=== PATIENT | female | born 1990 | race Caucasian/White ===

== ENCOUNTER 2017-12-08 17:12 | Emergency (ER) | payer MEDICAID, SELFPAY ==
[2017-12-08 17:25] VITALS: BP 137/77; PULSE 77; RESP 16; TEMP 36.6; O2SAT 100
--- NOTE | 2017-12-08 17:40 | ED.GENADUL ---
Disposition Clinical Impression: Cellulitis Disposition: HOME Condition: Good Instructions: Cellulitis (ED) Additional Instructions: Please take the antibiotic as directed. If you notice any worsening of your symptoms, or any new symptoms such as vomiting, diarrhea, fever, chills, shortness of breath, chest pain, numbness, weakness, or fainting , please return immediately to the emergency department for reevaluation. Please follow up with your primary care provider as soon as possible for reassessment and reevaluation. As always, it was a pleasure participating in your medical care today. Prescriptions: Clindamycin [Cleocin] 450 mg PO TID #90 cap Referrals: Valencia Adhikari [Primary Care Provider] - Medical Decision Making - Medical Decision Making This is a very pleasant 27-year-old female who presents with signs and symptoms consistent for mild cellulitis secondary to a recent tattoo. He is present on her forearm, no evidence of abscess on exam, or with bedside ultrasound. She demonstrates no systemic findings of fever, or severe tachycardia. Cellulitis is very mild on exam. Patient states that he was done in a clean environment with new needles and not using used needles. She has no history of hepatitis C, demonstrates no pain on abdominal exam and no signs of jaundice on exam. Patient denies any history of MRSA. She denies any IV or illicit drug use. With a concern for mild cellulitis, we will treat the patient with clindamycin for MRSA coverage. I had a long discussion with the patient regarding the importance of eating yogurt with live culture, as well as red flags which to return including worsening of her symptoms. We discussed the importance of close PCP follow-up and the patient understands. I have extensively reviewed the treatment plan and discharge instructions with the patient. I have addressed all patient concerns at this time. The patient was made aware of what symptoms to monitor for that would warrant a return to the emergency department. Discussed the plan with the patient, they demonstrate verbal understanding and agreement with our assessment and plan at this time. 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 She presents for evaluation of right forearm pain. She had a tattoo that was placed on her right forearm 5 days ago. Since then she has noticed mild swelling and mild pain in the area. It was performed by professional culinary artist who also happened to also be her friend, and was performed in normal environment. There is mild radiation of the pain in the arm. No associated symptoms of fevers, chills, discharge. She has not been on antibiotics recently. She denies any history of abscesses or MRSA. She has had no complications with tattoos in the past. There is no significant red dye from the tattoo. There are no associated aggravating or relieving factors. Patient denies any other complaints at this time. She denies any IV or illicit drug use. She denies any pertinent family history. - Related Data Levothyroxine Sodium [Synthroid] 200 mcg PO QAM 09/15/12 BuPROPion CR [Wellbutrin Sr] 150 mg PO DAILY 12/08/17 BusPIRone [Buspar] 15 mg PO BID 12/08/17 Clindamycin [Cleocin] 450 mg PO TID #90 cap 12/08/17 LamoTRIgine [LaMICtal] 150 mg PO DAILY 12/08/17 Levonorgestrel [Mirena] 1 each IY 12/08/17 Allergies Allergy/AdvReac Type Severity Reaction Status Date / Time hydromorphone [Hydromorphone] Allergy Severe Anaphylaxsi Unverified 12/08/17 17:31 s meperidine Allergy gi upset Unverified 12/08/17 17:31 itching codeine AdvReac Mild Nausea Unverified 12/08/17 17:31 Review of Systems Other: 10 point review of systems was performed, pertinent positives and negatives are noted in the history of present illness. Past Medical History - Past Medical History Medical history: cancer (thyroid). denies: arthritis Surgical history: other (thyroidectomy) - 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 Alcohol use: occasionally Drug use: marijuana (Daily) General Exam - Other Other exam information: 1.Const: Well-nourished, Well-developed, appearing stated age 2.Eyes: PERRL, no conjunctival injection, and symmetrical lids. 3.ENT: Atraumatic external nose and ears. Moist MM. Neck: Symmetric, trachea midline, No thyromegaly. 4.CVS: +S1/S2, No murmurs or gallops. Peripheral pulses 2+ and equal in all extremities. Brisk capillary refill in all extremities. 5.RESP: Unlabored respiratory effort. Clear to auscultation bilaterally. No wheezes rales or rhonchi 6.GI: Soft, Nontender/Nondistended, No hepatosplenomegaly. No guarding or rebound. 7.MSK: Normocephalic/Atraumatic, Normal movement of all extremities 8.Skin: Right forearm demonstrates a very nice tattoo with a diameter of 2 cm. There is mild amount of erythema extending around this. Mild firmness, no evidence of fluctuance or abscess. Bedside portable ultrasound demonstrates no evidence of abscess, or fluctuance. She has roughly 2-3 cm of mild erythema extending from around the tattoo itself. No other abnormalities. No axillary lymphadenopathy. Normal sensation distal to the site of infection. No pain with flexion of the forearm. 9.Neuro: thoracic medicine physician II-XII grossly intact. Sensation grossly intact, no focal neurologic deficits. 10.Psych: (AAO) x3. Appropriate mood and affect Course Vital Signs - 24 hr 12/08/17 17:25 Temperature 36.6 C Pulse 77 Respiratory 16 Rate Blood Pressure 137/77 Pulse Oximetry 100
[2017-12-08] MEDS: Clindamycin 150 MG CAP PO (17:59)
== END 2017-12-08 18:00 | disposition home or self-care (01) ==
PROVIDERS: Emergency Provider Student in an Organized Health Care Education/Training Program; PCP Nurse Practitioner Family
DX: L03.113 Cellulitis of right upper limb (principal); L81.8 Other specified disorders of pigmentation
CPT/HCPCS: 99283

== ENCOUNTER 2018-01-23 16:15 | Emergency (ER) | payer MEDICAID, SELFPAY ==
[2018-01-23 16:21] VITALS: BP 132/70; PULSE 91; RESP 17; TEMP 36.4; O2SAT 97
[2018-01-23] MEDS: Ketorolac 60 MG/2 ML VIAL 30 MG IM (18:28)
[2018-01-23] MEDS: Clindamycin 150 MG CAP 450 MG PO ×2 (18:29)
[2018-01-23 18:31] VITALS: BP 128/68; PULSE 87; RESP 16; TEMP 36.6; O2SAT 98
--- NOTE | 2018-01-23 20:44 | W.ED.GENAD ---
Discharge Plan Disposition Patient Disposition: HOME Condition: Good Discharge Details Chief Complaint: Cellulitis Clinical Impression: Cellulitis Primary Care Provider: Valencia Adhikari ED Provider: Behzad Candelaria Home Meds and New Rx's Prescriptions: New clindamycin HCl 150 mg capsule 450 mg PO TID 7 Days Qty: 63 RF: 0 acetaminophen [Mapap Extra Strength] 500 MG tablet 1,000 mg PO Q6H 5 Days Qty: 60 RF: 0 ibuprofen [Motrin IB] 200 MG tablet 800 mg PO Q6H 5 Days Qty: 80 RF: 0 No Action levothyroxine [Synthroid] 200 MCG tablet 200 mcg PO QAM RF: 0 lamotrigine 150 MG tablet 150 mg PO DAILY RF: 0 bupropion HCl 150 MG tablet extended release 12 hr 150 mg PO DAILY RF: 0 buspirone 15 MG tablet 15 mg PO BID RF: 0 levonorgestrel [Mirena] 1 EACH intrauterine device 1 ea Intrauterine RF: 0 Discharge Instructions Instructions: Cellulitis (ED) Additional Instructions: Please call here tomorrow morning at 7 AM for confirmation of your appointment and they will give you the exact time to come in. Please take your second clindamycin dose at 7 AM. Please take the Tylenol and Motrin as directed. Please keep your legs elevated. if you notice any worsening of your symptoms, or any new symptoms such as vomiting, diarrhea, fever, chills, shortness of breath, chest pain, numbness, weakness, or fainting , please return immediately to the emergency department for reevaluation. Please follow up with your primary care provider as soon as possible for reassessment and reevaluation. As always, it was a pleasure participating in your medical care today. Referrals: Valencia Adhikari [Primary Care Provider] - Medical Decision Making This is a 27-year-old female who presents today with swelling, redness, and tenderness at the medial aspects just proximal to her ankles bilaterally. The remainder of her physical exam is normal. No evidence of calf tenderness, no other significant abnormalities. The area does appear cellulitic in nature, no other evidence of rash or other significant cutaneous abnormality. Patient denies any trauma, exposure, or injury to this area. Because of the patient's estrogen use, as well as the concern for her swelling and her being on her feet at all times differential does include DVT. Ultrasound is not available at this time. I do feel that the more likely cause of her symptomatology is cellulitis however due to the current symptoms, and her risk factors I do feel that ultrasound is indicated. We will give subcu Lovenox which was requested by patient over pill alternatives, and have her follow-up tomorrow morning here for ultrasound to rule out DVTs. We will start her on clindamycin, give her first dose here, 1 pill to go home with her morning dose, and then a prescription for home use of clindamycin. At this time there is no evidence of allergic reaction, or atopic dermatitis. They do not feel that antihistamines or steroids are indicated. We discussed red flags which to immediately return the patient understands. I have extensively reviewed the treatment plan and discharge instructions with the patient. I have addressed all patient concerns at this time. The patient was made aware of what symptoms to monitor for that would warrant a return to the emergency department. Discussed the plan with the patient, they demonstrate verbal understanding and agreement with our assessment and plan at this time. HPI General Date/Time Provider Initiated Documentation: 01/23/18 16:51. HPI Narrative: This is a 27-year-old female with a past medical history of cellulitis, thyroid disease, and the Mirena device for contraception. She presents today with rash versus cellulitis on the medial aspect of her lower extremities bilaterally. Patient states that she is on her feet all day with work, and has been working a significant amount. She noticed pain, redness, and swelling over the medial aspect of her lower extremities bilaterally just proximal from the ankle. She denies any trauma, exposure to outdoor ike or Fonner, new medications, history of DVTs, no pets, or exposures. She denies any significant calf tenderness. She denies any new medications. She has no other complaints at this time. She denies any systemic symptoms of shortness of breath, chest pain, fever, chills, numbness, tingling, weakness. She has had cellulitis before, and has done well with clindamycin. Patient denies any other complaints at this time. Related Data Home Medications Medication Instructions Recorded Confirmed levothyroxine [Synthroid] 200 mcg PO QAM 09/15/12 01/23/18 bupropion HCl 150 mg PO DAILY 12/08/17 01/23/18 buspirone 15 mg PO BID 12/08/17 01/23/18 lamotrigine 150 mg PO DAILY 12/08/17 01/23/18 levonorgestrel [Mirena] 1 ea INTRAUTERINE 12/08/17 acetaminophen [Mapap Extra 1,000 mg PO Q6H 5 Days #60 tab 01/23/18 Strength] clindamycin HCl 450 mg PO TID 7 Days #63 cap 01/23/18 ibuprofen [Motrin Ib] 800 mg PO Q6H 5 Days #80 tab 01/23/18 Previous Rx's Medication Instructions Recorded acetaminophen [Mapap Extra 1,000 mg PO Q6H 5 Days #60 tab 01/23/18 Strength] clindamycin HCl 450 mg PO TID 7 Days #63 cap 01/23/18 ibuprofen [Motrin Ib] 800 mg PO Q6H 5 Days #80 tab 01/23/18 Allergies Allergy/AdvReac Type Severity Reaction Status Date / Time hydromorphone [Hydromorphone] Allergy Severe Anaphylaxsi Unverified 12/08/17 17:31 s meperidine Allergy gi upset Unverified 12/08/17 17:31 itching codeine AdvReac Mild Nausea Unverified 12/08/17 17:31 General Stated Complaint: Cellulitis ALISHA: 5 Review of Systems Review of Systems All systems reviewed & are unremarkable except as noted in HPI and below PFSH 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 Smoking/Tobacco Use Status: Current every day Surgical History Thyroid Tonsillectomy and adenoidectomy Exam Narrative Exam Narrative: 1.Const: Well-nourished, Well-developed, appearing stated age 2.Eyes: PERRL, no conjunctival injection, and symmetrical lids. 3.ENT: Atraumatic external nose and ears. Moist MM. Neck: Symmetric, trachea midline, No thyromegaly. 4.CVS: +S1/S2, No murmurs or gallops. Peripheral pulses 2+ and equal in all extremities. Brisk capillary refill in all extremities. 5.RESP: Unlabored respiratory effort. Clear to auscultation bilaterally. No wheezes rales or rhonchi 6.GI: Soft, Nontender/Nondistended, No hepatosplenomegaly. No guarding or rebound. 7.MSK: Normocephalic/Atraumatic, Extremities w/o deformity . No cyanosis or clubbing, Normal movement of all extremities. Patient does demonstrate erythema the medial aspects of her lower extremities bilaterally. It is warm, indurated, and notably tender. No evidence of rash in regards to vesicles, bulla, or signs of fluctuant abscess. Dorsalis pedis pulses and posterior tibial pulses are equal bilaterally, brisk capillary refill, normal sensation distal to the area of erythema. No significant calf tenderness. No posterior popliteal tenderness. No pain on flexion or extension of the ankle. 8.Skin: Warm, Dry. Please see muscular skeletal 9.Neuro: banquet director II-XII grossly intact. Sensation grossly intact, no focal neurologic deficits. 10.Psych: (AAO) x3. Appropriate mood and affect Course Vital Signs Temperature 36.4 C L 01/23/18 16:21 Pulse 91 H 01/23/18 16:21 Respiratory Rate 17 01/23/18 16:21 Blood Pressure 132/70 01/23/18 16:21 Pulse Oximetry 97 01/23/18 16:21 Temperature 36.6 C 01/23/18 18:31 Temperature Source Temporal Artery Scan 01/23/18 16:21 Pulse 87 01/23/18 18:31 Respiratory Rate 16 01/23/18 18:31 Respiratory Effort 01/23/18 16:23 Blood Pressure 128/68 01/23/18 18:31 Blood Pressure Position Sitting 01/23/18 16:21 Pulse Oximetry 98 01/23/18 18:31 Oxygen Delivery Method Room Air 01/23/18 16:21 Oxygen Flow Rate 0 01/23/18 16:21 Pain Level 5 01/23/18 18:31
--- NOTE | 2018-01-23 20:48 | ED.GENADUL_ITS ---
Discharge Plan Disposition Patient Disposition: HOME Condition: Good Discharge Details Chief Complaint: Cellulitis Clinical Impression: Cellulitis Primary Care Provider: Valencia Adhikari ED Provider: Behzad Candelaria Home Meds and New Rx's Prescriptions: New clindamycin HCl 150 mg capsule 450 mg PO TID 7 Days Qty: 63 RF: 0 acetaminophen [Mapap Extra Strength] 500 MG tablet 1,000 mg PO Q6H 5 Days Qty: 60 RF: 0 ibuprofen [Motrin IB] 200 MG tablet 800 mg PO Q6H 5 Days Qty: 80 RF: 0 No Action levothyroxine [Synthroid] 200 MCG tablet 200 mcg PO QAM RF: 0 lamotrigine 150 MG tablet 150 mg PO DAILY RF: 0 bupropion HCl 150 MG tablet extended release 12 hr 150 mg PO DAILY RF: 0 buspirone 15 MG tablet 15 mg PO BID RF: 0 levonorgestrel [Mirena] 1 EACH intrauterine device 1 ea Intrauterine RF: 0 Discharge Instructions Instructions: Cellulitis (ED) Additional Instructions: Please call here tomorrow morning at 7 AM for confirmation of your appointment and they will give you the exact time to come in. Please take your second clindamycin dose at 7 AM. Please take the Tylenol and Motrin as directed. Please keep your legs elevated. if you notice any worsening of your symptoms, or any new symptoms such as vomiting, diarrhea, fever, chills, shortness of breath, chest pain, numbness, weakness, or fainting , please return immediately to the emergency department for reevaluation. Please follow up with your primary care provider as soon as possible for reassessment and reevaluation. As always, it was a pleasure participating in your medical care today. Referrals: Valencia Adhikari [Primary Care Provider] - Medical Decision Making This is a 27-year-old female who presents today with swelling, redness , and tenderness at the medial aspects just proximal to her ankles bilaterally. The remainder of her physical exam is normal. No evidence of calf tenderness , no other significant abnormalities. The area does appear cellulitic in nature , no other evidence of rash or other significant cutaneous abnormality. Patient denies any trauma, exposure, or injury to this area. Because of the patient's estrogen use, as well as the concern for her swelling and her being on her feet at all times differential does include DVT. Ultrasound is not available at this time. I do feel that the more likely cause of her symptomatology is cellulitis however due to the current symptoms, and her risk factors I do feel that ultrasound is indicated. We will give subcu Lovenox which was requested by patient over pill alternatives, and have her follow-up tomorrow morning here for ultrasound to rule out DVTs. We will start her on clindamycin, give her first dose here, 1 pill to go home with her morning dose, and then a prescription for home use of clindamycin. At this time there is no evidence of allergic reaction, or atopic dermatitis. They do not feel that antihistamines or steroids are indicated. We discussed red flags which to immediately return the patient understands. I have extensively reviewed the treatment plan and discharge instructions with the patient. I have addressed all patient concerns at this time. The patient was made aware of what symptoms to monitor for that would warrant a return to the emergency department. Discussed the plan with the patient, they demonstrate verbal understanding and agreement with our assessment and plan at this time. HPI General Date/Time Provider Initiated Documentation: 01/23/18 16:51 . HPI Narrative: This is a 27-year-old female with a past medical history of cellulitis, thyroid disease, and the Mirena device for contraception. She presents today with rash versus cellulitis on the medial aspect of her lower extremities bilaterally. Patient states that she is on her feet all day with work, and has been working a significant amount. She noticed pain, redness, and swelling over the medial aspect of her lower extremities bilaterally just proximal from the ankle. She denies any trauma, exposure to outdoor ike or Fonner, new medications, history of DVTs, no pets, or exposures. She denies any significant calf tenderness. She denies any new medications. She has no other complaints at this time. She denies any systemic symptoms of shortness of breath, chest pain, fever, chills, numbness, tingling, weakness. She has had cellulitis before, and has done well with clindamycin. Patient denies any other complaints at this time. Related Data Home Medications Medication Instructions Recorded Confirmed levothyroxine [Synthroid] 200 mcg PO QAM 09/15/12 01/23/18 bupropion HCl 150 mg PO DAILY 12/08/17 01/23/18 buspirone 15 mg PO BID 12/08/17 01/23/18 lamotrigine 150 mg PO DAILY 12/08/17 01/23/18 levonorgestrel [Mirena] 1 ea INTRAUTERINE 12/08/17 acetaminophen [Mapap Extra 1,000 mg PO Q6H 5 Days #60 tab 01/23/18 Strength] clindamycin HCl 450 mg PO TID 7 Days #63 cap 01/23/18 ibuprofen [Motrin Ib] 800 mg PO Q6H 5 Days #80 tab 01/23/18 Previous Rx's Medication Instructions Recorded acetaminophen [Mapap Extra 1,000 mg PO Q6H 5 Days #60 tab 01/23/18 Strength] clindamycin HCl 450 mg PO TID 7 Days #63 cap 01/23/18 ibuprofen [Motrin Ib] 800 mg PO Q6H 5 Days #80 tab 01/23/18 Allergies Allergy/AdvReac Type Severity Reaction Status Date / Time hydromorphone [Hydromorphone] Allergy Severe Anaphylaxsi Unverified 12/08/17 17: 31 s meperidine Allergy gi upset Unverified 12/08/17 17:31 itching codeine AdvReac Mild Nausea Unverified 12/08/17 17:31 General Stated Complaint: Cellulitis ALISHA: 5 Review of Systems Review of Systems All systems reviewed & are unremarkable except as noted in HPI and below PFSH 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 Smoking/Tobacco Use Status: Current every day Surgical History Thyroid Tonsillectomy and adenoidectomy Exam Narrative Exam Narrative: 1.Const: Well-nourished, Well-developed, appearing stated age 2.Eyes: PERRL, no conjunctival injection, and symmetrical lids. 3.ENT: Atraumatic external nose and ears. Moist MM. Neck: Symmetric, trachea midline, No thyromegaly. 4.CVS: +S1/S2, No murmurs or gallops. Peripheral pulses 2+ and equal in all extremities. Brisk capillary refill in all extremities. 5.RESP: Unlabored respiratory effort. Clear to auscultation bilaterally. No wheezes rales or rhonchi 6.GI: Soft, Nontender/Nondistended, No hepatosplenomegaly. No guarding or rebound. 7.MSK: Normocephalic/Atraumatic, Extremities w/o deformity . No cyanosis or clubbing, Normal movement of all extremities. Patient does demonstrate erythema the medial aspects of her lower extremities bilaterally. It is warm, indurated, and notably tender. No evidence of rash in regards to vesicles, bulla, or signs of fluctuant abscess. Dorsalis pedis pulses and posterior tibial pulses are equal bilaterally, brisk capillary refill, normal sensation distal to the area of erythema. No significant calf tenderness. No posterior popliteal tenderness. No pain on flexion or extension of the ankle. 8.Skin: Warm, Dry. Please see muscular skeletal 9.Neuro: nurses medical assistants phlebotomists II-XII grossly intact. Sensation grossly intact, no focal neurologic deficits. 10.Psych: (AAO) x3. Appropriate mood and affect Course Vital Signs Temperature 36.4 C L 01/23/18 16:21 Pulse 91 H 01/23/18 16:21 Respiratory Rate 17 01/23/18 16:21 Blood Pressure 132/70 01/23/18 16:21 Pulse Oximetry 97 01/23/18 16:21 Temperature 36.6 C 01/23/18 18:31 Temperature Source Temporal Artery Scan 01/23/18 16:21 Pulse 87 01/23/18 18:31 Respiratory Rate 16 01/23/18 18:31 Respiratory Effort 01/23/18 16:23 Blood Pressure 128/68 01/23/18 18:31 Blood Pressure Position Sitting 01/23/18 16:21 Pulse Oximetry 98 01/23/18 18:31 Oxygen Delivery Method Room Air 01/23/18 16:21 Oxygen Flow Rate 0 01/23/18 16:21 Pain Level 5 01/23/18 18:31
== END 2018-01-23 18:33 | disposition home or self-care (01) ==
PROVIDERS: Emergency Provider Student in an Organized Health Care Education/Training Program; PCP Nurse Practitioner Family
DX: L03.115 Cellulitis of right lower limb (principal); L03.116 Cellulitis of left lower limb
CPT/HCPCS: 96372; 99284; J1650; J1885

== ENCOUNTER 2018-01-24 09:57 | Emergency (ER) | payer MEDICAID, SELFPAY ==
[2018-01-24 10:00] VITALS: BP 117/78; PULSE 77; RESP 16; TEMP 36.4; O2SAT 98
[2018-01-24 10:02] VITALS: BP 117/78; PULSE 77; RESP 16; TEMP 36.4; O2SAT 98
--- NOTE | 2018-01-24 10:30 | W.ED.GENAD ---
Discharge Plan Disposition Patient Disposition: HOME Condition: Stable Discharge Details Chief Complaint: Recheck Clinical Impression: Cellulitis Primary Care Provider: Valencia Adhikari ED Provider: Kris Lund Home Meds and New Rx's Prescriptions: Continue levothyroxine [Synthroid] 200 MCG tablet 200 mcg PO QAM RF: 0 clindamycin HCl 150 mg capsule 450 mg PO TID 7 Days Qty: 63 RF: 0 acetaminophen [Mapap Extra Strength] 500 MG tablet 1,000 mg PO Q6H 5 Days Qty: 60 RF: 0 ibuprofen [Motrin IB] 200 MG tablet 800 mg PO Q6H 5 Days Qty: 80 RF: 0 lamotrigine 150 MG tablet 150 mg PO DAILY RF: 0 bupropion HCl 150 MG tablet extended release 12 hr 150 mg PO DAILY RF: 0 buspirone 15 MG tablet 15 mg PO BID RF: 0 levonorgestrel [Mirena] 1 EACH intrauterine device 1 ea Intrauterine RF: 0 Discharge Instructions Instructions: Cellulitis (ED) Additional Instructions: Feel free to return to the emergency department for any new or worsening symptoms otherwise follow the instructions you were given yesterday and return for any emergent change in your condition otherwise follow-up with your primary care provider if not improving over the next week. Stand Alone Forms: Work Release Referrals: Valencia Adhikari [Primary Care Provider] - (As needed for reassessment) Medical Decision Making Patient presenting to the emergency department for review of ultrasound imaging and complaint of bilateral redness to ankles along with pain and discomfort. Patient was placed on clindamycin for suspicion of cellulitis yesterday but due to estrogen use there was concern for possible DVT. Patient denies any new or worsening symptoms but does state continued significant amount of pain that has been somewhat relieved by ice packs. Patient denies any injury or trauma. There is a cellulitic nature to area of redness but also mild petechiae are noticed to the edges. Patient denies any other spots or lesions. There is concern for occult trauma versus dermatitis versus cellulitis. Patient already on clindamycin which I feel is appropriate, ultrasound imaging was negative for any DVT, and patient was encouraged to continue to use [id number] pain medication along with cold therapy as needed. Patient clearly instructed to return to the emergency department for any warning signs and otherwise to follow-up with her primary care provider if not improving over the next week. After discussion of diagnosis and plan of care patient has no further needs, questions, or concerns and states clear understanding to return to the emergency department for any worsening symptoms. HPI General Mode of arrival: ambulatory. Date/Time Provider Initiated Documentation: 01/24/18 10:05. Limitations to Documentation: no limitations. Information obtained by: RN notes reviewed and old records reviewed. History of Present Illness 27 year old F presents to the emergency department with the chief complaint of Bilateral ankle pain/rash, described as severe, with intensity rated at 9. Quality is described as aching and sharp, and is localized to the lower extremity. Patient reports no radiation. Patient started experiencing this day(s) (2) and it has been constant. other things that improve symptom(s), (Ice) No exacerbating factors reported . Patient notes no other symptoms.. Patient did receive the following treatments prior to arrival, NSAID and cold therapy Related Data Home Medications Medication Instructions Recorded Confirmed levothyroxine [Synthroid] 200 mcg PO QAM 09/15/12 01/23/18 bupropion HCl 150 mg PO DAILY 12/08/17 01/23/18 buspirone 15 mg PO BID 12/08/17 01/23/18 lamotrigine 150 mg PO DAILY 12/08/17 01/23/18 levonorgestrel [Mirena] 1 ea INTRAUTERINE 12/08/17 acetaminophen [Mapap Extra 1,000 mg PO Q6H 5 Days #60 tab 01/23/18 Strength] clindamycin HCl 450 mg PO TID 7 Days #63 cap 01/23/18 ibuprofen [Motrin IB] 800 mg PO Q6H 5 Days #80 tab 01/23/18 Previous Rx's Medication Instructions Recorded acetaminophen [Mapap Extra 1,000 mg PO Q6H 5 Days #60 tab 01/23/18 Strength] clindamycin HCl 450 mg PO TID 7 Days #63 cap 01/23/18 ibuprofen [Motrin IB] 800 mg PO Q6H 5 Days #80 tab 01/23/18 Allergies Allergy/AdvReac Type Severity Reaction Status Date / Time hydromorphone [Hydromorphone] Allergy Severe Anaphylaxsi Unverified 12/08/17 17:31 s meperidine Allergy gi upset Unverified 12/08/17 17:31 itching codeine AdvReac Mild Nausea Unverified 12/08/17 17:31 General Stated Complaint: Recheck ALISHA: 4 Review of Systems Constitutional Denies body ache(s), Denies chills and Denies fever(s) Cardiovascular Denies chest pain and Denies dyspnea Respiratory Denies dyspnea Gastrointestinal Denies abdominal pain, Denies nausea and Denies vomiting Integumentary/Breasts Reports as per HPI and Reports rash Neurologic Denies confusion and Denies sensory deficit Psychiatric Denies confusion PFSH 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 Smoking/Tobacco Use Status: Current every day Surgical History Thyroid Tonsillectomy and adenoidectomy Exam Const General: cooperative, no acute distress and not ill appearing Orientation: alert, awake and oriented x3 HENMT Mouth: moist mucous membranes Resp Effort & Inspection: normal respiratory effort, able to speak in complete sentences and no respiratory distress Cardio Rate: regular rate Rhythm: regular rhythm Skin General skin exam: erythema (Erythema noted to the medial aspect of both distal tibias with some blanching but also some scant petechiae. Significant tenderness to even light palpation of the area) Trauma: no lacerations or abrasions Wounds: no wounds Neuro General: alert, awake, oriented x3, moves all extremities and no focal motor deficits Sensory Exam: no sensory deficits noted Extrem General: full ROM, normal capillary refill, no joint enlargement and no pedal edema Course Vital Signs Temperature 36.4 C L 01/24/18 10:02 Pulse 77 01/24/18 10:02 Respiratory Rate 16 01/24/18 10:02 Blood Pressure 117/78 01/24/18 10:02 Pulse Oximetry 98 01/24/18 10:02 Temperature 36.4 C L 01/24/18 10:02 Temperature Source Skin 01/24/18 10:02 Pulse 77 01/24/18 10:02 Respiratory Rate 16 01/24/18 10:02 Respiratory Effort 01/24/18 10:04 Blood Pressure 117/78 01/24/18 10:02 Pulse Oximetry 98 01/24/18 10:02 Oxygen Delivery Method Room Air 01/24/18 10:02 Oxygen Flow Rate 0 01/24/18 10:02
--- NOTE | 2018-01-24 10:34 | ED.GENADUL_ITS ---
Discharge Plan Disposition Patient Disposition: HOME Condition: Stable Discharge Details Chief Complaint: Recheck Clinical Impression: Cellulitis Primary Care Provider: Valencia Adhikari ED Provider: Kris Lund Home Meds and New Rx's Prescriptions: Continue levothyroxine [Synthroid] 200 MCG tablet 200 mcg PO QAM RF: 0 clindamycin HCl 150 mg capsule 450 mg PO TID 7 Days Qty: 63 RF: 0 acetaminophen [Mapap Extra Strength] 500 MG tablet 1,000 mg PO Q6H 5 Days Qty: 60 RF: 0 ibuprofen [Motrin IB] 200 MG tablet 800 mg PO Q6H 5 Days Qty: 80 RF: 0 lamotrigine 150 MG tablet 150 mg PO DAILY RF: 0 bupropion HCl 150 MG tablet extended release 12 hr 150 mg PO DAILY RF: 0 buspirone 15 MG tablet 15 mg PO BID RF: 0 levonorgestrel [Mirena] 1 EACH intrauterine device 1 ea Intrauterine RF: 0 Discharge Instructions Instructions: Cellulitis (ED) Additional Instructions: Feel free to return to the emergency department for any new or worsening symptoms otherwise follow the instructions you were given yesterday and return for any emergent change in your condition otherwise follow-up with your primary care provider if not improving over the next week. Stand Alone Forms: Work Release Referrals: Valencia Adhikari [Primary Care Provider] - (As needed for reassessment) Medical Decision Making Patient presenting to the emergency department for review of ultrasound imaging and complaint of bilateral redness to ankles along with pain and discomfort. Patient was placed on clindamycin for suspicion of cellulitis yesterday but due to estrogen use there was concern for possible DVT. Patient denies any new or worsening symptoms but does state continued significant amount of pain that has been somewhat relieved by ice packs. Patient denies any injury or trauma. There is a cellulitic nature to area of redness but also mild petechiae are noticed to the edges. Patient denies any other spots or lesions. There is concern for occult trauma versus dermatitis versus cellulitis. Patient already on clindamycin which I feel is appropriate, ultrasound imaging was negative for any DVT, and patient was encouraged to continue to use [id number] pain medication along with cold therapy as needed. Patient clearly instructed to return to the emergency department for any warning signs and otherwise to follow -up with her primary care provider if not improving over the next week. After discussion of diagnosis and plan of care patient has no further needs, questions , or concerns and states clear understanding to return to the emergency department for any worsening symptoms. HPI General Mode of arrival: ambulatory . Date/Time Provider Initiated Documentation: 01/24/18 10:05 . Limitations to Documentation: no limitations . Information obtained by: RN notes reviewed and old records reviewed . History of Present Illness 27 year old F presents to the emergency department with the chief complaint of Bilateral ankle pain/rash, described as severe, with intensity rated at 9. Quality is described as aching and sharp, and is localized to the lower extremity. Patient reports no radiation. Patient started experiencing this day(s) (2) and it has been constant. other things that improve symptom(s), ( Ice) No exacerbating factors reported . Patient notes no other symptoms.. Patient did receive the following treatments prior to arrival, NSAID and cold therapy Related Data Home Medications Medication Instructions Recorded Confirmed levothyroxine [Synthroid] 200 mcg PO QAM 09/15/12 01/23/18 bupropion HCl 150 mg PO DAILY 12/08/17 01/23/18 buspirone 15 mg PO BID 12/08/17 01/23/18 lamotrigine 150 mg PO DAILY 12/08/17 01/23/18 levonorgestrel [Mirena] 1 ea INTRAUTERINE 12/08/17 acetaminophen [Mapap Extra 1,000 mg PO Q6H 5 Days #60 tab 01/23/18 Strength] clindamycin HCl 450 mg PO TID 7 Days #63 cap 01/23/18 ibuprofen [Motrin IB] 800 mg PO Q6H 5 Days #80 tab 01/23/18 Previous Rx's Medication Instructions Recorded acetaminophen [Mapap Extra 1,000 mg PO Q6H 5 Days #60 tab 01/23/18 Strength] clindamycin HCl 450 mg PO TID 7 Days #63 cap 01/23/18 ibuprofen [Motrin IB] 800 mg PO Q6H 5 Days #80 tab 01/23/18 Allergies Allergy/AdvReac Type Severity Reaction Status Date / Time hydromorphone [Hydromorphone] Allergy Severe Anaphylaxsi Unverified 12/08/17 17: 31 s meperidine Allergy gi upset Unverified 12/08/17 17:31 itching codeine AdvReac Mild Nausea Unverified 12/08/17 17:31 General Stated Complaint: Recheck ALISHA: 4 Review of Systems Constitutional Denies body ache(s), Denies chills and Denies fever(s) Cardiovascular Denies chest pain and Denies dyspnea Respiratory Denies dyspnea Gastrointestinal Denies abdominal pain, Denies nausea and Denies vomiting Integumentary/Breasts Reports as per HPI and Reports rash Neurologic Denies confusion and Denies sensory deficit Psychiatric Denies confusion PFSH 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 Smoking/Tobacco Use Status: Current every day Surgical History Thyroid Tonsillectomy and adenoidectomy Exam Const General: cooperative, no acute distress and not ill appearing Orientation: alert, awake and oriented x3 HENMT Mouth: moist mucous membranes Resp Effort & Inspection: normal respiratory effort, able to speak in complete sentences and no respiratory distress Cardio Rate: regular rate Rhythm: regular rhythm Skin General skin exam: erythema (Erythema noted to the medial aspect of both distal tibias with some blanching but also some scant petechiae. Significant tenderness to even light palpation of the area) Trauma: no lacerations or abrasions Wounds: no wounds Neuro General: alert, awake, oriented x3, moves all extremities and no focal motor deficits Sensory Exam: no sensory deficits noted Extrem General: full ROM, normal capillary refill, no joint enlargement and no pedal edema Course Vital Signs Temperature 36.4 C L 01/24/18 10:02 Pulse 77 01/24/18 10:02 Respiratory Rate 16 01/24/18 10:02 Blood Pressure 117/78 01/24/18 10:02 Pulse Oximetry 98 01/24/18 10:02 Temperature 36.4 C L 01/24/18 10:02 Temperature Source Skin 01/24/18 10:02 Pulse 77 01/24/18 10:02 Respiratory Rate 16 01/24/18 10:02 Respiratory Effort 01/24/18 10:04 Blood Pressure 117/78 01/24/18 10:02 Pulse Oximetry 98 01/24/18 10:02 Oxygen Delivery Method Room Air 01/24/18 10:02 Oxygen Flow Rate 0 01/24/18 10:02
== END 2018-01-24 10:40 | disposition home or self-care (01) ==
PROVIDERS: Emergency Provider Nurse Practitioner Family; PCP Nurse Practitioner Family
DX: L03.115 Cellulitis of right lower limb (principal); L03.116 Cellulitis of left lower limb

== ENCOUNTER 2018-01-24 14:36 | Outpatient (CLI) | payer MEDICAID, SELFPAY ==
--- NOTE | 2018-01-24 09:18 | DI.US_ITS ---
SYMPTOMS/DIAGNOSIS: SWELLING, BILATERAL LOWER EXTREMITY CELLULITIS, ? CLOT BILATERAL LOWER EXTREMITY ULTRASOUND: The deep venous system, as well as saphenous veins, are freely compressible bilaterally. No deep or superficial thrombosis is identified. There is no evidence of Marks's cysts or other fluid collection or hematoma. IMPRESSION: Negative bilateral lower extremity ultrasound. No evidence of DVT.
== END 2018-01-24 14:56 ==
PROVIDERS: PCP Nurse Practitioner Family; Visit Provider Student in an Organized Health Care Education/Training Program
DX: M79.89 Other specified soft tissue disorders (principal); L03.115 Cellulitis of right lower limb; L03.116 Cellulitis of left lower limb
CPT/HCPCS: 93970

== ENCOUNTER 2018-06-06 05:27 | Emergency (ER) | payer MEDICAID, SELFPAY ==
[2018-06-06 05:29] VITALS: BP 125/67; PULSE 90; RESP 18; TEMP 36.5; O2SAT 97
--- NOTE | 2018-06-06 05:46 | W.ED.GENAD ---
Discharge Plan Disposition Patient Disposition: HOME Condition: Good Discharge Details Chief Complaint: Orthopedic Clinical Impression: Chronic left shoulder pain Primary Care Provider: Valencia Adhikari ED Provider: Vernon Escalante [place] Meds and New Rx's Prescriptions: New naproxen sodium 550 mg tablet 550 mg PO BID Qty: 20 RF: 0 Continued levothyroxine [Synthroid] 200 MCG tablet 200 mcg PO QAM RF: 0 lamotrigine 150 MG tablet 1.5 tab PO DAILY RF: 0 Mirena 1 EACH intrauterine device 1 ea Intrauterine RF: 0 lidocaine 5 % Adhesive Patch,Medicated 1 patch TOPICAL DAILY RF: 0 venlafaxine [Effexor XR] 37.5 mg Capsule,Extended Release 24hr 37.5 mg PO DAILY RF: 0 Discontinued celecoxib 200 mg capsule 200 mg PO DAILY RF: 0 Discharge Instructions Additional Instructions: Let's try a different nonsteroidal. Discontinue the Celebrex. Try the naproxen sodium. Follow-up with orthopedics as planned. Return to ED if new neurologic changes, swelling, fevers, other concerns. Referrals: [facility] [Provider Group] Medical Decision Making Patient here with exacerbation of chronic left shoulder pain. Currently on lidocaine patches and Celebrex. Discussed use of narcotics and its inappropriateness to do so in the emergency setting. She reports that she wishes to stay off narcotics anyway because of the chronic nature of her pain. Has been on gabapentin and other type medications without good results. Pain does not sound neuropathic or radicular anyways. Has not really been on different nonsteroidals. Will try discontinuing the Celebrex and picking a different nonsteroidal, at least for the next week until she gets into see orthopedics. We will give her an injection of Toradol this morning. Will give prescription for naproxen and have her try this. Follow-up with [facility] orthopedics as planned. Return to ED for any new neurologic symptoms, fever, swelling. HPI General Mode of arrival: ambulatory. Date/Time Provider Initiated Documentation: 06/06/18 05:44. Limitations to Documentation: no limitations. Information obtained by: patient. HPI Narrative: Patient is a [id number] female who presents to ED with chronic left shoulder pain. Patient reports sustaining an injury over three years ago. She has had chronic pain and problems since then. She has been to multiple different doctors and has had multiple imaging tests with no definitive diagnosis made. She is followed in the pain clinic at [facility]. She is following up with orthopedics at [facility] in a couple of weeks. Currently is only on lidocaine patches and Celebrex for pain. There has been no new injuries. Pain has been worsening over a few days. She was working tonight and is having a significant amount of pain and is presenting for relief. There is no weakness to the arm at all. She occasionally gets numbness distally when the pain gets severe. This is not new. She has no chest pain, back pain or neck pain. She has no fever or shortness of breath. Related Data Home Medications Medication Instructions Recorded Confirmed levothyroxine [Synthroid] 200 mcg PO QAM 09/15/12 06/06/18 Mirena 1 ea INTRAUTERINE 12/08/17 lamotrigine 1.5 tab PO DAILY 12/08/17 06/06/18 lidocaine 1 patch TOPICAL DAILY 06/06/18 06/06/18 naproxen sodium 550 mg PO BID #20 tab 06/06/18 venlafaxine [Effexor XR] 37.5 mg PO DAILY 06/06/18 06/06/18 Previous Rx's Medication Instructions Recorded naproxen sodium 550 mg PO BID #20 tab 06/06/18 Allergies Allergy/AdvReac Type Severity Reaction Status Date / Time hydromorphone [Hydromorphone] Allergy Severe Anaphylaxsi Unverified 06/06/18 05:33 s meperidine Allergy gi upset Unverified 06/06/18 05:33 itching codeine AdvReac Mild Nausea Unverified 06/06/18 05:33 General Stated Complaint: Orthopedic ALISHA: 4 Review of Systems Constitutional Denies fever(s), Denies headache(s) and Denies weakness ENT Denies headache(s) and Denies neck pain Cardiovascular Denies chest pain and Denies dyspnea Respiratory Denies dyspnea Gastrointestinal Denies abdominal pain, Denies nausea and Denies vomiting Musculoskeletal Denies back pain, Reports limited range of motion, Denies neck pain, Reports stiffness and Reports tingling Integumentary/Breasts Denies rash Neurologic Denies headache(s), Denies focal weakness, Denies radicular pain, Denies sensory deficit, Reports tingling and Denies weakness [facility] Medical History Asthma (Chronic) Bipolar disorder (Chronic) GERD (gastroesophageal reflux disease) (Chronic) History of thyroid cancer (Inactive) Surgical History S/P thyroidectomy (Inactive) Tonsillectomy and adenoidectomy (Inactive) 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 Smoking and Tabacco status: Former Tobacco Use Exam Const General: cooperative and comfortable Orientation: alert and oriented x3 Neck Neck: full ROM and supple Skin Rashes: no rashes Neuro General: alert, oriented x3, no focal motor deficits and CN's II-XI intact bilaterally Sensory Exam: no sensory deficits noted Extrem General: normal exam except as noted Left upper extremity: shoulder/upper arm (NVI distally) Details: inspection abnormal, tenderness (posterior shoulder), axillary nerve sensory function normal and abnormal ROM Course Vital Signs Temperature 97.7 F 06/06/18 05:29 Pulse 90 06/06/18 05:29 Respiratory Rate 18 06/06/18 05:29 Blood Pressure 125/67 06/06/18 05:29 Pulse Oximetry 97 06/06/18 05:29 Temperature 97.7 F 06/06/18 05:29 Temperature Source Skin 06/06/18 05:29 Pulse 90 06/06/18 05:29 Respiratory Rate 18 06/06/18 05:29 Respiratory Effort Non-Labored 06/06/18 05:32 Blood Pressure 125/67 06/06/18 05:29 Blood Pressure Position Sitting 06/06/18 05:29 Pulse Oximetry 97 06/06/18 05:29 Oxygen Delivery Method Room Air 06/06/18 05:29 Oxygen Flow Rate 0 06/06/18 05:29 Pain Level 9 06/06/18 05:37
[2018-06-06] MEDS: Ketorolac 30 MG/ML VIAL IM (06:09)
--- NOTE | 2018-06-06 06:24 | ED.GENADUL_ITS ---
Discharge Plan Disposition Patient Disposition: HOME Condition: Good Discharge Details Chief Complaint: Orthopedic Clinical Impression: Chronic left shoulder pain Primary Care Provider: Valencia Adhikari ED Provider: Vernon Escalante [place] Meds and New Rx's Prescriptions: New naproxen sodium 550 mg tablet 550 mg PO BID Qty: 20 RF: 0 Continued levothyroxine [Synthroid] 200 MCG tablet 200 mcg PO QAM RF: 0 lamotrigine 150 MG tablet 1.5 tab PO DAILY RF: 0 Mirena 1 EACH intrauterine device 1 ea Intrauterine RF: 0 lidocaine 5 % Adhesive Patch,Medicated 1 patch TOPICAL DAILY RF: 0 venlafaxine [Effexor XR] 37.5 mg Capsule,Extended Release 24hr 37.5 mg PO DAILY RF: 0 Discontinued celecoxib 200 mg capsule 200 mg PO DAILY RF: 0 Discharge Instructions Additional Instructions: Let's try a different nonsteroidal. Discontinue the Celebrex. Try the naproxen sodium. Follow-up with orthopedics as planned. Return to ED if new neurologic changes, swelling, fevers, other concerns. Referrals: [facility] [Provider Group] Medical Decision Making Patient here with exacerbation of chronic left shoulder pain. Currently on lidocaine patches and Celebrex. Discussed use of narcotics and its inappropriateness to do so in the emergency setting. She reports that she wishes to stay off narcotics anyway because of the chronic nature of her pain. Has been on gabapentin and other type medications without good results. Pain does not sound neuropathic or radicular anyways. Has not really been on different nonsteroidals. Will try discontinuing the Celebrex and picking a different nonsteroidal, at least for the next week until she gets into see orthopedics. We will give her an injection of Toradol this morning. Will give prescription for naproxen and have her try this. Follow-up with [facility] orthopedics as planned. Return to ED for any new neurologic symptoms, fever, swelling. HPI General Mode of arrival: ambulatory . Date/Time Provider Initiated Documentation: 06/06/18 05:44 . Limitations to Documentation: no limitations . Information obtained by: patient . HPI Narrative: Patient is a [id number] female who presents to ED with chronic left shoulder pain. Patient reports sustaining an injury over three years ago. She has had chronic pain and problems since then. She has been to multiple different doctors and has had multiple imaging tests with no definitive diagnosis made. She is follow ed in the pain clinic at [facility]. She is following up with orthopedics at [facility] in a couple of weeks. Currently is only on lidocaine patches and Celebrex for pain. There has been no new injuries. Pain has been worsening over a few days. She was working tonight and is having a significant amount of pain and is presenting for relief. There is no weakness to the arm at all. She occasionally gets numbness distally when the pain gets severe. This is not new. She has no chest pain, back pain or neck pain. She has no fever or shortness of breath. Related Data Home Medications Medication Instructions Recorded Confirmed levothyroxine [Synthroid] 200 mcg PO QAM 09/15/12 06/06/18 Mirena 1 ea INTRAUTERINE 12/08/17 lamotrigine 1.5 tab PO DAILY 12/08/17 06/06/18 lidocaine 1 patch TOPICAL DAILY 06/06/18 06/06/18 naproxen sodium 550 mg PO BID #20 tab 06/06/18 venlafaxine [Effexor XR] 37.5 mg PO DAILY 06/06/18 06/06/18 Previous Rx's Medication Instructions Recorded naproxen sodium 550 mg PO BID #20 tab 06/06/18 Allergies Allergy/AdvReac Type Severity Reaction Status Date / Time hydromorphone [Hydromorphone] Allergy Severe Anaphylaxsi Unverified 06/06/18 05:33 s meperidine Allergy gi upset Unverified 06/06/18 05:33 itching codeine AdvReac Mild Nausea Unverified 06/06/18 05:33 General Stated Complaint: Orthopedic ALISHA: 4 Review of Systems Constitutional Denies fever(s), Denies headache(s) and Denies weakness ENT Denies headache(s) and Denies neck pain Cardiovascular Denies chest pain and Denies dyspnea Respiratory Denies dyspnea Gastrointestinal Denies abdominal pain, Denies nausea and Denies vomiting Musculoskeletal Denies back pain, Reports limited range of motion, Denies neck pain, Reports stiffness and Reports tingling Integumentary/Breasts Denies rash Neurologic Denies headache(s), Denies focal weakness, Denies radicular pain, Denies sensory deficit, Reports tingling and Denies weakness [facility] Medical History Asthma (Chronic) Bipolar disorder (Chronic) GERD (gastroesophageal reflux disease) (Chronic) History of thyroid cancer (Inactive) Surgical History S/P thyroidectomy (Inactive) Tonsillectomy and adenoidectomy (Inactive) 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 Smoking and Tabacco status: Former Tobacco Use Exam Const General: cooperative and comfortable Orientation: alert and oriented x3 Neck Neck: full ROM and supple Skin Rashes: no rashes Neuro General: alert, oriented x3, no focal motor deficits and CN's II-XI intact bilaterally Sensory Exam: no sensory deficits noted Extrem General: normal exam except as noted Left upper extremity: shoulder/upper arm (NVI distally) Details: inspection abnormal, tenderness (posterior shoulder), axillary nerve sensory function normal and abnormal ROM Course Vital Signs Temperature 97.7 F 06/06/18 05:29 Pulse 90 06/06/18 05:29 Respiratory Rate 18 06/06/18 05:29 Blood Pressure 125/67 06/06/18 05:29 Pulse Oximetry 97 06/06/18 05:29 Temperature 97.7 F 06/06/18 05:29 Temperature Source Skin 06/06/18 05:29 Pulse 90 06/06/18 05:29 Respiratory Rate 18 06/06/18 05:29 Respiratory Effort Non-Labored 06/06/18 05:32 Blood Pressure 125/67 06/06/18 05:29 Blood Pressure Position Sitting 06/06/18 05:29 Pulse Oximetry 97 06/06/18 05:29 Oxygen Delivery Method Room Air 06/06/18 05:29 Oxygen Flow Rate 0 06/06/18 05:29 Pain Level 9 06/06/18 05:37
== END 2018-06-06 06:35 | disposition home or self-care (01) ==
PROVIDERS: Emergency Provider Emergency Medicine; PCP Nurse Practitioner Family
DX: M25.512 Pain in left shoulder (principal)
CPT/HCPCS: 96372; 99284; J1885

== ENCOUNTER 2018-08-12 13:33 | Outpatient (REF) | payer MEDICAID, SELFPAY ==
[2018-08-12 21:12] LABS: Abs Immature Grans 0.02 k/cumm (0.0-0.09); Absolute Basophil Count 0.02 k/cumm (0.0-0.2); Absolute Eosinophil Count 0.06 k/cumm (0.0-0.7); Absolute Lymphocyte Count 1.17 k/cumm (1.2-3.4); Absolute Monocyte Count 0.72 k/cumm (0.11-0.7); Absolute Neutrophil Count 5.28 k/cumm (1.2-6.7); Basophils % 0.3; Eosinophils % 0.8; HCT 42.7 % (36.0-46.0); HGB 14.4 g/dL (12.0-15.5); Immature Grans % 0.3; Lymphocytes % 16.1; Mean Corp. HGB Concentration 33.7 g/dL (32.0-36.0); Mean Corpuscular Hemoglobin 33.6 pg (27.0-33.0); Mean Corpuscular Volume 99.5 fL (80-95); Mean Platelet Volume 12.9 fL (8.0-11.0); Monocytes % 9.9; Neutrophils % 72.6; Platelet Count 164 x1000/uL (130-400); RBC 4.29 m/cumm (4.00-5.20); RBC Distribution Width 12.9 % (11.7-14.6); White Blood Cell Count 7.27 k/cumm (4.4-10.8)
[2018-08-12 21:25] LABS: ALT 16 U/L (12-78); AST 14 U/L (15-37); Albumin 3.7 g/dL (3.4-5.0); Alkaline Phosphatase 85 U/L (46-116); Anion Gap 10.6 mmol/L (3-11); BUN 6 mg/dL (7-18); Bilirubin, Total 1.5 mg/dL (0.2-1.0); CO2 23.4 mmol/L (21.0-32.0); CREATININE 0.71 mg/dL (0.55-1.02); Chloride 104 mmol/L (98-107); Glucose 96 mg/dL (70-100); Lipase 61 U/L (73-393); Potassium 4.1 mmol/L (3.5-5.1); Sodium 138 mmol/L (136-145); TSH (W/Ref FT4) 0.07 uIU/mL (0.358-3.74); Total Protein 6.2 g/dL (6.4-8.2)
[2018-08-12 21:50] LABS: Calcium 8.7 mg/dL (8.5-10.1)
== END 2018-08-12 13:53 ==
LOC: NCHCN 13:33
PROVIDERS: PCP Nurse Practitioner Family; Visit Provider Specialist/Technologist Athletic Trainer
DX: R10.9 Unspecified abdominal pain (principal)
CPT/HCPCS: 80053; 83690; 84439; 84443; 85025

== ENCOUNTER 2018-08-15 00:41 | Outpatient (CLI) | payer MEDICAID, SELFPAY ==
--- NOTE | 2018-08-15 08:50 | DI.US_ITS ---
SYMPTOM/DIAGNOSIS: ABD PAIN R10.9 ABDOMEN ULTRASOUND: The visualized liver parenchyma is normal in appearance. There is no evidence of cholelithiasis or biliary dilatation. Common bile duct is of normal diameter. Spleen is unremarkable in appearance. The kidneys are unremarkable with no evidence of hydronephrosis or nephrolithiasis. Abdominal aorta and IVC are of normal diameter. CONCLUSION: Negative abdomen ultrasound.
== END 2018-08-15 01:01 ==
PROVIDERS: PCP Nurse Practitioner Family; Visit Provider Specialist/Technologist Athletic Trainer
DX: R10.84 Generalized abdominal pain (principal)
CPT/HCPCS: 76700

== ENCOUNTER 2018-09-26 18:03 | Emergency (ER) | payer MEDICAID, SELFPAY ==
[2018-09-26 18:18] VITALS: BP 118/78; PULSE 83; RESP 16; TEMP 36.8
--- NOTE | 2018-09-26 18:38 | DI.RAD_ITS ---
SYMPTOM/DIAGNOSIS: ANTERIOR PAIN RIGHT KNEE: No acute soft tissue bone or joint abnormality is identified.
--- NOTE | 2018-09-26 18:38 | W.ED.GENAD ---
Discharge Plan Disposition Patient Disposition: HOME Condition: Improving Discharge Details Chief Complaint: Orthopedic Clinical Impression: Bursitis, prepatellar, right, Abrasion of knee, right Primary Care Provider: Valencia Adhikari ED Provider: Cale Moyer Home Meds and New Rx's Prescriptions: Continued levothyroxine [Synthroid] 200 MCG tablet 200 mcg PO QAM RF: 0 lamotrigine 150 MG tablet 1.5 tab PO DAILY RF: 0 Mirena 1 EACH intrauterine device 1 ea Intrauterine RF: 0 lidocaine 5 % Adhesive Patch,Medicated 1 patch TOPICAL DAILY RF: 0 venlafaxine [Effexor XR] 37.5 mg Capsule,Extended Release 24hr 37.5 mg PO DAILY RF: 0 naproxen sodium 550 mg tablet 550 mg PO BID Qty: 20 RF: 0 Discharge Instructions Instructions: Swollen Knee Joint (ED) Additional Instructions: Mathew bandage to provide compression and stability. Please elevate the leg above the level heart and apply ice to reduce pain and swelling. Continue Tylenol and/or ibuprofen as needed for discomfort. As we discussed, may use the provided Vicodin/hydrocodone if needed for severe breakthrough pain. No driving or working or drinking alcohol with this medication. Return if you develop increasing discomfort, a fever or redness, or any other acute concern Discharge Data Discharge Date/Time-TO BE ENTERED AT DEPARTURE: 09/26/18 19:32 Medical Decision Making 28-year-old female who fell 4 days ago onto a flexed knee on the ground. She struck the patella with an abrasion. 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 She states that there was no other injury. Her exam is reassuring without demonstration of laxity of the joint. I am concerned for underlying fracture and the patient is referred for x-ray; there is no evidence of acute bony injury. There is prepatellar swelling/minimal effusion present. This is consistent with traumatic bursitis. Discussed with her home management. HPI General Mode of arrival: ambulatory. Date/Time Provider Initiated Documentation: 09/26/18 18:04. Limitations to Documentation: no limitations. Information obtained by: patient. History of Present Illness 28 year old F presents to the emergency department with the chief complaint of Right knee pain after fall on Sunday, worse today, described as moderate, Quality is described as dull and constant, and is localized to the right and lower extremity. Patient reports no radiation. Patient started experiencing this day(s) and it has been constant. Rest improves symptom(s), Movement worsens symptoms . Patient notes no other symptoms.. Patient did receive the following treatments prior to arrival, NSAID Related Data Home Medications Medication Instructions Recorded Confirmed levothyroxine [Synthroid] 200 mcg PO QAM 09/15/12 06/06/18 Mirena 1 ea INTRAUTERINE 12/08/17 lamotrigine 1.5 tab PO DAILY 12/08/17 06/06/18 lidocaine 1 patch TOPICAL DAILY 06/06/18 06/06/18 naproxen sodium 550 mg PO BID #20 tab 06/06/18 venlafaxine [Effexor XR] 37.5 mg PO DAILY 06/06/18 06/06/18 Previous Rx's Medication Instructions Recorded naproxen sodium 550 mg PO BID #20 tab 06/06/18 Allergies Allergy/AdvReac Type Severity Reaction Status Date / Time hydromorphone [Hydromorphone] Allergy Severe Anaphylaxsi Unverified 06/06/18 05:33 s meperidine Allergy gi upset Unverified 06/06/18 05:33 itching codeine AdvReac Mild Nausea Unverified 06/06/18 05:33 General Stated Complaint: Orthopedic ALISHA: 3 Review of Systems Review of Systems No other injury. Denies headache/neck/chest/back or abdominal pain. 6 systems reviewed and otherwise neg COUNT INCLUDES [facility] Medical History Asthma (Chronic) Bipolar disorder (Chronic) GERD (gastroesophageal reflux disease) (Chronic) History of thyroid cancer (Inactive) Surgical History S/P thyroidectomy (Inactive) Tonsillectomy and adenoidectomy (Inactive) 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 Smoking/Tobacco Use Status: Former Tobacco Use Drug use: Occasionally Substance use type: marijuana Do you feel safe in your relationship?: Yes Exam Narrative Exam Narrative: GEN: awake, alert, oriented 3. Pleasant, well groomed, interactive. HEAD: Normocephalic, atraumatic EXT: Full ROM, the right prepatellar region is swollen and ecchymotic with an abrasion present. There is tenderness of the entire joint to palpation but no laxity appreciated. Motor is graded 5 out of 5 and sensation is intact Neuro: Grossly normal neurologic exam, conversant, interactive. Psych: Speech fluent, thoughts congruent, affect normal Course Vital Signs Temperature 36.8 C 09/26/18 18:18 Pulse 83 09/26/18 18:18 Respiratory Rate 16 09/26/18 18:18 Blood Pressure 118/78 09/26/18 18:18 Temperature 36.8 C 09/26/18 18:18 Temperature Source Temporal Artery Scan 09/26/18 18:18 Pulse 83 09/26/18 18:18 Respiratory Rate 16 09/26/18 18:18 Respiratory Effort Non-Labored 09/26/18 18:20 Blood Pressure 118/78 09/26/18 18:18 Blood Pressure Position Sitting 09/26/18 18:18 Oxygen Delivery Method Room Air 09/26/18 18:18 Oxygen Flow Rate 0 09/26/18 18:18
--- NOTE | 2018-09-26 18:41 | ED.GENADUL_ITS ---
Discharge Plan Disposition Patient Disposition: HOME Condition: Improving Discharge Details Chief Complaint: Orthopedic Clinical Impression: Bursitis, prepatellar, right, Abrasion of knee, right Primary Care Provider: Valencia Adhikari ED Provider: Cale Moyer Home Meds and New Rx's Prescriptions: Continued levothyroxine [Synthroid] 200 MCG tablet 200 mcg PO QAM RF: 0 lamotrigine 150 MG tablet 1.5 tab PO DAILY RF: 0 Mirena 1 EACH intrauterine device 1 ea Intrauterine RF: 0 lidocaine 5 % Adhesive Patch,Medicated 1 patch TOPICAL DAILY RF: 0 venlafaxine [Effexor XR] 37.5 mg Capsule,Extended Release 24hr 37.5 mg PO DAILY RF: 0 naproxen sodium 550 mg tablet 550 mg PO BID Qty: 20 RF: 0 Discharge Instructions Instructions: Swollen Knee Joint (ED) Additional Instructions: Mathew bandage to provide compression and stability. Please elevate the leg above the level heart and apply ice to reduce pain and swelling. Continue Tylenol and/or ibuprofen as needed for discomfort. As we discussed, may use the provided Vicodin/hydrocodone if needed for severe breakthrough pain. No driving or working or drinking alcohol with this medication. Return if you develop increasing discomfort, a fever or redness, or any other acute concern Discharge Data Discharge Date/Time-TO BE ENTERED AT DEPARTURE: 09/26/18 19:32 Medical Decision Making 28-year-old female who fell 4 days ago onto a flexed knee on the ground. She struck the patella with an abrasion. 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 She states that there was no other injury. Her exam is reassuring without demonstration of laxity of the joint. I am concerned for underlying fracture and the patient is referred for x-ray; there is no evidence of acute bony injury. There is prepatellar swelling/minimal effusion present. This is consistent with traumatic bursitis. Discussed with her home management. HPI General Mode of arrival: ambulatory . Date/Time Provider Initiated Documentation: 09/26/18 18:04 . Limitations to Documentation: no limitations . Information obtained by: patient . History of Present Illness 28 year old F presents to the emergency department with the chief complaint of Right knee pain after fall on Sunday, worse today, described as moderate, Quality is described as dull and constant, and is localized to the right and lower extremity. Patient reports no radiation. Patient started experiencing this day(s) and it has been constant. Rest improves symptom(s), Movement worsens symptoms . Patient notes no other symptoms.. Patient did receive the following treatments prior to arrival, NSAID Related Data Home Medications Medication Instructions Recorded Confirmed levothyroxine [Synthroid] 200 mcg PO QAM 09/15/12 06/06/18 Mirena 1 ea INTRAUTERINE 12/08/17 lamotrigine 1.5 tab PO DAILY 12/08/17 06/06/18 lidocaine 1 patch TOPICAL DAILY 06/06/18 06/06/18 naproxen sodium 550 mg PO BID #20 tab 06/06/18 venlafaxine [Effexor XR] 37.5 mg PO DAILY 06/06/18 06/06/18 Previous Rx's Medication Instructions Recorded naproxen sodium 550 mg PO BID #20 tab 06/06/18 Allergies Allergy/AdvReac Type Severity Reaction Status Date / Time hydromorphone [Hydromorphone] Allergy Severe Anaphylaxsi Unverified 06/06/18 05:33 s meperidine Allergy gi upset Unverified 06/06/18 05:33 itching codeine AdvReac Mild Nausea Unverified 06/06/18 05:33 General Stated Complaint: Orthopedic ALISHA: 3 Review of Systems Review of Systems No other injury. Denies headache/neck/chest/back or abdominal pain. 6 systems reviewed and otherwise neg [facility] Medical History Asthma (Chronic) Bipolar disorder (Chronic) GERD (gastroesophageal reflux disease) (Chronic) History of thyroid cancer (Inactive) Surgical History S/P thyroidectomy (Inactive) Tonsillectomy and adenoidectomy (Inactive) 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 Smoking/Tobacco Use Status: Former Tobacco Use Drug use: Occasionally Substance use type: marijuana Do you feel safe in your relationship?: Yes Exam Narrative Exam Narrative: GEN: awake, alert, oriented 3. Pleasant, well groomed, interactive. HEAD: Normocephalic, atraumatic EXT: Full ROM, the right prepatellar region is swollen and ecchymotic with an abrasion present. There is tenderness of the entire joint to palpation but no laxity appreciated. Motor is graded 5 out of 5 and sensation is intact Neuro: Grossly normal neurologic exam, conversant, interactive. Psych: Speech fluent, thoughts congruent, affect normal Course Vital Signs Temperature 36.8 C 09/26/18 18:18 Pulse 83 09/26/18 18:18 Respiratory Rate 16 09/26/18 18:18 Blood Pressure 118/78 09/26/18 18:18 Temperature 36.8 C 09/26/18 18:18 Temperature Source Temporal Artery Scan 09/26/18 18:18 Pulse 83 09/26/18 18:18 Respiratory Rate 16 09/26/18 18:18 Respiratory Effort Non-Labored 09/26/18 18:20 Blood Pressure 118/78 09/26/18 18:18 Blood Pressure Position Sitting 09/26/18 18:18 Oxygen Delivery Method Room Air 09/26/18 18:18 Oxygen Flow Rate 0 09/26/18 18:18
--- NOTE | 2018-09-26 19:17 | DI.VRAD_ITS ---
EXAM: XR Left Knee EXAM DATE/TIME: 09/26/2018 6:38 PM CLINICAL HISTORY: 28 years old, female; Left; Patient HX: Knee pain TECHNIQUE: Imaging protocol: XR Left knee. Views: 4 or more views. COMPARISON: No relevant prior studies available. FINDINGS: Bones/joints: No fracture. Normal alignment. No blastic or lytic lesions. No periostitis or osteolysis. Question minimal suprapatellar joint effusion. Joint spaces are well-maintained. Soft tissues: No gross soft tissue abnormalities. No foreign bodies. IMPRESSION: No acute osseous abnormalities. Question minimal suprapatellar joint effusion. Dictated and Authenticated by: Mark Malloy MD. Ordering:JENN Madsen MD
[2018-09-26] MEDS: HYDROcodone 5/Acetaminophen 325 TAB PO (19:29)
== END 2018-09-26 19:32 | disposition home or self-care (01) ==
PROVIDERS: Emergency Provider Emergency Medicine; PCP Nurse Practitioner Family
DX: M70.41 Prepatellar bursitis, right knee (principal); S80.211A Abrasion, right knee, initial encounter; W01.0XXA Fall on same level from slipping, tripping and stumbling without subsequent striking against object, initial encounter
CPT/HCPCS: 99283; 73564

== ENCOUNTER 2019-01-02 14:37 | Outpatient (CLI) | payer OTHER, MEDICAID, SELFPAY ==
[2019-01-02 16:11] LABS: FREE T4 0.51 ng/dL (0.76-1.46)
== END 2019-01-02 14:57 ==
PROVIDERS: Specialist/Technologist Athletic Trainer; PCP Nurse Practitioner Family; Visit Provider Nurse Practitioner Family
DX: E06.9 Thyroiditis, unspecified (principal)
CPT/HCPCS: 36415; 84439; 84443

== ENCOUNTER 2019-03-26 18:24 | Emergency (ER) | payer OTHER, MEDICAID, SELFPAY ==
[2019-03-26 18:51] VITALS: BP 115/75; PULSE 79; RESP 18; TEMP 36.5; O2SAT 98
--- NOTE | 2019-03-26 19:11 | ED.GENADUL_ITS ---
Discharge Plan Disposition Patient Disposition: HOME Condition: Good Discharge Details Chief Complaint: Orthopedic Clinical Impression: Right wrist sprain Primary Care Provider: Valencia Adhikari ED Provider: Valencia Villa Home Meds and New Rx's Prescriptions: No Action levothyroxine [Synthroid] 200 MCG tablet 200 mcg PO QAM RF: 0 lamotrigine 150 MG tablet 1.5 tab PO DAILY RF: 0 Mirena 1 EACH intrauterine device 1 ea Intrauterine RF: 0 lidocaine 5 % Adhesive Patch,Medicated 1 patch TOPICAL DAILY RF: 0 venlafaxine [Effexor XR] 37.5 mg Capsule,Extended Release 24hr 37.5 mg PO DAILY RF: 0 naproxen sodium 550 mg tablet 550 mg PO BID Qty: 20 RF: 0 Discharge Instructions Instructions: Wrist Sprain (ED) Additional Instructions: Rest. Activities as tolerated. Elevate injury to prevent swelling. Ice to the area of discomfort for 15 min. 3-5 times daily. Motrin every 8 hours with food or Tylenol every 6 hours for soreness if needed over the counter for comfort. Followup with orthopedic doctor as discussed if not improving in one week. Return for any worsening or concerns sooner if needed. Stand Alone Forms: Work Release Referrals: Cale Brar MD [ [facility] STAFF PHYSICIAN] - Medical Decision Making Is a 28-year-old patient who slipped on ice and fell onto her right wrist. Patient reports ulnar wrist pain as well as mild third fourth and fifth digit pain. Patient denies any other sites of injury or pain. Patient has been at work today and noted some difficulty with range of motion has been splinting in position of comfort and elevating arm to relieve pain. On exam patient has no significant elbow pain, mild ulnar pain with palpation as well as proximal hand and third for fifth digit tenderness. X-rays obtained. X-rays do not reveal any evidence of an acute bony abnormality. Encouraged universal wrist splint for 1 week as well as rice. Patient given a work note to relieve her from today. Encourage orthopedic follow-up if not improving. Conservative treatments discussed. The patient was stable and requested discharge. Prior to discharge, my usual and customary return precautions were reviewed with the patient - this included follow-up instructions and reasons to return to the Emergency Department if conditions worsens, does not improve as expected, or other new concerns arise. HPI General Date/Time Provider Initiated Documentation: 03/26/19 18:31 . HPI Narrative: Is a 28-year-old patient who slipped on the ice and fell on her right wrist. Patient reports right wrist pain after fall this morning. Patient reports persistent wrist pain with range of motion. Patient points to the area of the ulnar wrist as maximum site of pain. Limited range of motion due to pain. Patient denies head neck or back injury. No other injuries reported. Patient denies numbness, tingling or weakness. Patient denies any open wounds. No other concerns or complaints at this time Related Data Home Medications Medication Instructions Recorded Confirmed levothyroxine [Synthroid] 200 mcg PO QAM 09/15/12 06/06/18 Mirena 1 ea INTRAUTERINE 12/08/17 lamotrigine 1.5 tab PO DAILY 12/08/17 06/06/18 lidocaine 1 patch TOPICAL DAILY 06/06/18 06/06/18 naproxen sodium 550 mg PO BID #20 tab 06/06/18 venlafaxine [Effexor XR] 37.5 mg PO DAILY 06/06/18 06/06/18 Previous Rx's Medication Instructions Recorded naproxen sodium 550 mg PO BID #20 tab 06/06/18 Allergies Allergy/AdvReac Type Severity Reaction Status Date / Time hydromorphone [Hydromorphone] Allergy Severe Anaphylaxsi Unverified 06/06/18 05:33 s meperidine Allergy gi upset Unverified 06/06/18 05:33 itching codeine AdvReac Mild Nausea Unverified 06/06/18 05:33 General Stated Complaint: Orthopedic ALISHA: 4 Review of Systems All systems reviewed & are unremarkable except as noted in HPI and below Constitutional Constitutional: Denies headache(s) ENT Ears, Nose, Mouth, and Throat: Denies headache(s) and Denies neck pain Musculoskeletal Musculoskeletal: Denies back pain, Reports limited range of motion, Denies neck pain, Denies numbness and Denies tingling Integumentary/Breasts Skin/Breast: Denies rash and Denies skin swelling Neurologic Neurologic: Denies headache(s), Denies numbness and Denies tingling [facility] Medical History Asthma (Chronic) Bipolar disorder (Chronic) GERD (gastroesophageal reflux disease) (Chronic) History of thyroid cancer (Inactive) 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 Smoking/Tobacco Use Status: Current-Occasional Alcohol Intake: current Alcohol Intake frequency: a few times a week Drug use: Occasionally Substance use type: marijuana Do you feel safe at home: Yes Exam Narrative Exam Narrative: CONST: Healthy appearing patient, in no acute distress. Well hydrated. Alert and alert. MUSCULOSKELETAL: Normal Gait. Patient with no elbow pain with palpation on the right, no forearm pain with palpation of the right. Ulnar wrist pain noted with palpation. Mild radial wrist pain with palpation. Tenderness with palpation of the proximal hand as well as the third fourth and fifth digit. Sensation intact distally. 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 Pulses intact. No deformities Skin: Intact, no wounds, no changes. NEURO: Alert and awake. Speech clear. PSYCH: Normal affect. Cooperative. Course Vital Signs Vital signs: Vital Signs Temperature 36.5 C 03/26/19 18:51 Pulse 79 03/26/19 18:51 Respiratory Rate 18 03/26/19 18:51 Blood Pressure 115/75 03/26/19 18:51 Pulse Oximetry 98 03/26/19 18:51 Temperature 36.5 C 03/26/19 18:51 Temperature Source Skin 03/26/19 18:51 Pulse 79 03/26/19 18:51 Respiratory Rate 18 03/26/19 18:51 Respiratory Effort Non-Labored 03/26/19 18:53 Blood Pressure 115/75 03/26/19 18:51 Blood Pressure Position Sitting 03/26/19 18:51 Pulse Oximetry 98 03/26/19 18:51 Oxygen Delivery Method Room Air 03/26/19 18:51 Oxygen Flow Rate 0 03/26/19 18:51 Pain Level 8 03/26/19 18:51
--- NOTE | 2019-03-26 19:13 | DI.RAD_ITS ---
EXAM: XR HAND RT COMPLETE INDICATION: pain, fall. COMPARISON: No exams were available for comparison TECHNIQUE: 2D digital imaging was performed. FINDINGS: No fracture or dislocation is seen. IMPRESSION: Negative right hand.
--- NOTE | 2019-03-26 19:14 | DI.RAD_ITS ---
EXAM: XR WRIST RT COMPLETE INDICATION: pain, fall. COMPARISON: No exams were available for comparison TECHNIQUE: 2D digital imaging was performed. FINDINGS: No fracture or dislocation is seen. Neck IMPRESSION: Negative right wrist
--- NOTE | 2019-03-26 19:48 | DI.VRAD_ITS ---
PROCEDURE INFORMATION: Exam: XR Right Hand Exam date and time: 03/26/2019 7:16 PM Age: 28 years old Clinical history: Injury or trauma; Fall; Initial encounter; Blunt trauma (contusions or hematomas; Hand; Right; Injury date: 03/26/2019; Injury details: Fell on ice TECHNIQUE: Imaging protocol: XR Right hand. Views: 3 or more views. COMPARISON: No relevant prior studies available. FINDINGS: Bones/joints: Unremarkable. Soft tissues: Unremarkable. IMPRESSION: No evidence for acute bony injury. If clinical symptoms persist recommend followup film in 7-10 days. Dictated and Authenticated by: Nicole Lilly MD. Ordering:FABIEN Birmingham MD
--- NOTE | 2019-03-26 19:49 | DI.VRAD_ITS ---
PROCEDURE INFORMATION: Exam: XR Right Wrist Exam date and time: 03/26/2019 7:17 PM Age: 28 years old Clinical history: Injury or trauma; Fall; Initial encounter; Blunt trauma (contusions or hematomas; Wrist; Right; Injury date: 03/26/2019; Injury details: Foosh on ice TECHNIQUE: Imaging protocol: XR Right wrist. Views: 3 or more views. COMPARISON: No relevant prior studies available. FINDINGS: Bones/joints: Unremarkable. Soft tissues: Unremarkable. IMPRESSION: No evidence for acute bony injury. If clinical symptoms persist recommend followup film in 7-10 days. Dictated and Authenticated by: Nicole Lilly MD. Ordering:FABIEN Birmingham MD
== END 2019-03-26 20:00 | disposition home or self-care (01) ==
PROVIDERS: Emergency Provider Physician Assistant; PCP Nurse Practitioner Family
DX: S63.501A Unspecified sprain of right wrist, initial encounter (principal); W00.0XXA Fall on same level due to ice and snow, initial encounter
CPT/HCPCS: 29125; 99283; 73110; 73130; L3908

== ENCOUNTER 2019-06-30 12:42 | Outpatient (REF) | payer OTHER, MEDICAID, SELFPAY ==
[2019-06-30 21:15] LABS: TSH (W/Ref FT4) 4.16 uIU/mL (0.36-3.74)
[2019-06-30 21:36] LABS: FREE T4 1.31 ng/dL (0.76-1.46)
== END 2019-06-30 13:02 ==
LOC: NCHCN 12:42
PROVIDERS: PCP Nurse Practitioner Family; Visit Provider Nurse Practitioner Family
DX: F31.60 Bipolar disorder, current episode mixed, unspecified (principal); E06.9 Thyroiditis, unspecified
CPT/HCPCS: 84439; 84443

== ENCOUNTER 2019-12-28 00:49 | Emergency (ER) | payer OTHER, MEDICAID, SELFPAY ==
[2019-12-28 00:53] VITALS: BP 128/80; PULSE 127; RESP 18; TEMP 36.7; O2SAT 97
--- NOTE | 2019-12-28 01:01 | W.ED.GENAD ---
Discharge Plan Disposition Patient Disposition: HOME Condition: Good Discharge Details Clinical Impression: Trapezius muscle spasm Primary Care Provider: Valencia Adhikari ED Provider: Vernon Escalante Meds and New Rx's Prescriptions: New cyclobenzaprine 10 mg tablet 10 mg PO Q8H PRN (Reason: Spasms) Qty: 10 RF: 0 Continued levothyroxine [Synthroid] 200 MCG tablet 200 mcg PO QAM RF: 0 lorazepam 0.5 mg tablet 0.5 mg PO TID PRNRF: 0 lamotrigine 150 MG tablet 1.5 tab PO DAILY RF: 0 Mirena 1 EACH intrauterine device 1 ea Intrauterine RF: 0 lidocaine 5 % Adhesive Patch,Medicated 1 patch TOPICAL DAILY RF: 0 venlafaxine [Effexor XR] 37.5 mg Capsule,Extended Release 24hr 37.5 mg PO DAILY RF: 0 Discharge Instructions Instructions: Hydrocodone/Acetaminophen (By mouth), Muscle Spasm (ED) Additional Instructions: Continue ibuprofen 600 mg 3 times a day with food. Cyclobenzaprine 3 times a day as needed for spasm. Gentle stretching, massage, heat. Lidoderm patches. Hydrocodone/acetaminophen if needed for severe pain. Contact primary care on Sunday for follow-up. Return to ED for fever, cough, shortness of breath, chest pain, numbness or weak arm. Referrals: Valencia Adhikari [Primary Care Provider] - Discharge Data Discharge Date/Time-TO BE ENTERED AT DEPARTURE: 12/28/19 01:35 Medical Decision Making Patient with left trapezial muscle spasm. She has history of anxiety and the pain is not helping with that. This is resulting in her tachycardia. She has no fever, cough, shortness of breath, chest pain. Pain is clearly musculoskeletal in nature. She otherwise looks well and is neurovascularly intact. Will give IM Toradol tonight. We will start her on Flexeril for muscle spasm. Will give her 4 Lortab to go for severe pain if needed until she can follow-up with primary care on Sunday. Off work for rest of the weekend until follow-up with primary care. Return to ED for fever, cough, shortness of breath, chest pain, numbness or weakness. HPI General Mode of arrival: ambulatory. Date/Time Provider Initiated Documentation: 12/28/19 01:01. Limitations to Documentation: no limitations. Information obtained by: patient and RN notes reviewed. HPI Narrative: Patient presents to the ED with worsening left neck/shoulder/back pain for the last week. Pain is unbearable tonight. She is unable to lift her arm or turn her head. She has pain in the left scapular region with movement or breathing. She denies any specific injury. She has chronic left shoulder problems and pain. She denies fever, cough, chest pain, shortness of breath. She had some tingling in her left arm earlier but no loss of sensation or weakness. Took ibuprofen this afternoon and Tylenol this evening. Has lidocaine patches on. Was hoping to get by until Sunday to see primary care. Related Data Home Medications Medication Instructions Recorded Confirmed levothyroxine [Synthroid] 200 mcg PO QAM 09/15/12 12/28/19 Mirena 1 ea INTRAUTERINE 12/08/17 lamotrigine 1.5 tab PO DAILY 12/08/17 12/28/19 lidocaine 1 patch TOPICAL DAILY 06/06/18 12/28/19 venlafaxine [Effexor XR] 37.5 mg PO DAILY 06/06/18 12/28/19 cyclobenzaprine 10 mg PO Q8H PRN #10 tab 12/28/19 lorazepam 0.5 mg PO TID PRN 12/28/19 12/28/19 Previous Rx's Medication Instructions Recorded cyclobenzaprine 10 mg PO Q8H PRN #10 tab 12/28/19 Allergies Allergy/AdvReac Type Severity Reaction Status Date / Time hydromorphone [Hydromorphone] Allergy Severe Anaphylaxsi Unverified 12/28/19 00:56 s meperidine Allergy gi upset Unverified 12/28/19 00:56 itching codeine AdvReac Mild Nausea Unverified 12/28/19 00:56 General Stated Complaint: Orthopedic ALISHA: 4 Review of Systems Narrative: As documented in HPI otherwise negative as below. Const: no fever, chills, weakness Resp: no cough, SOB, pleuritic pain CV: no CP, diaphoresis, edema, syncope GI: no abdominal pain, nausea, vomiting, diarrhea Neuro: no headache, numbness, focal weakness, confusion [facility] Medical History (Updated 12/28/19 @ 01:24 by Vernon Escalante MD) Asthma Bipolar disorder GERD (gastroesophageal reflux disease) History of thyroid cancer Surgical History S/P thyroidectomy Tonsillectomy and adenoidectomy 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 Smoking/Tobacco Use Status: Current-Occasional Alcohol Intake: current Alcohol Intake frequency: a few times a week Drug use: Occasionally Substance use type: marijuana Do you feel safe at home: Yes Do you feel safe in your relationship?: Yes Exam Narrative Exam Narrative: Vitals: Afebrile. Tachycardic related to anxiety and pain, normal blood pressure and room air pulse ox. Const: WDWN female in NAD. HEENT: NC/AT. Normal facial exam. Eyes: Normal conjunctiva and sclera. Neck: Decreased range of motion due to pain in left trapezius. Tender at the left trapezius insertion on skull and along the neck. Lungs: Normal respiratory effort. Lungs are clear. Cor: RRR without murmur/gallop. Good radial pulses. Back: Tender down left trapezius in the scapular region and out to shoulder. Neuro: A+O x 3. Normal speech, mentation, gait. Cranial nerves II - XII grossly intact. No gross motor or sensory deficit. Ext: Significant decrease in active range of motion of left shoulder. Decent passive range of motion. No warmth or tenderness to the left arm or joints. Skin: Warm and dry without rash. Course Vital Signs Vital signs: Vital Signs Temperature 98.1 F 12/28/19 00:53 Pulse 127 H 12/28/19 00:53 Respiratory Rate 18 12/28/19 00:53 Blood Pressure 128/80 12/28/19 00:53 Pulse Oximetry 97 12/28/19 00:53 Temperature 98.1 F 12/28/19 00:53 Pulse 127 H 12/28/19 00:53 Respiratory Rate 18 12/28/19 00:53 Blood Pressure 128/80 12/28/19 00:53 Pulse Oximetry 97 12/28/19 00:53 Pain Level 9 12/28/19 00:53
[2019-12-28] MEDS: Ketorolac 30 MG/ML VIAL IM (01:32)
[2019-12-28] MEDS: Cyclobenzaprine 10 MG TAB PO (01:33)
== END 2019-12-28 01:35 | disposition home or self-care (01) ==
LOC: ER 01:35
PROVIDERS: Emergency Provider Emergency Medicine; PCP Nurse Practitioner Family
DX: M62.838 Other muscle spasm (principal); G89.29 Other chronic pain
CPT/HCPCS: 96372; 99284; 99283; J1885

== ENCOUNTER 2019-12-31 15:04 | Emergency (ER) | payer OTHER, MEDICAID, SELFPAY ==
[2019-12-31 15:08] VITALS: BP 116/69; PULSE 108; RESP 18; TEMP 36.7; O2SAT 96
--- NOTE | 2019-12-31 15:17 | W.ED.GENAD ---
Discharge Plan Disposition Patient Disposition: HOME Condition: Stable Discharge Details Clinical Impression: Chronic left shoulder pain Primary Care Provider: Valencia Adhikari ED Provider: Elinor Farrell Home Meds and New Rx's Prescriptions: Continued levothyroxine [Synthroid] 200 MCG tablet 225 mcg PO QAM RF: 0 lorazepam 0.5 mg tablet 0.5 mg PO TID PRNRF: 0 lamotrigine 150 MG tablet 2 tab PO DAILY RF: 0 Mirena 1 EACH intrauterine device 1 ea Intrauterine ONCE RF: 0 lidocaine 5 % Adhesive Patch,Medicated 1 patch TOPICAL DAILY RF: 0 venlafaxine [Effexor XR] 37.5 mg Capsule,Extended Release 24hr 37.5 mg PO DAILY RF: 0 cyclobenzaprine 10 mg tablet 10 mg PO Q8H PRN (Reason: Spasms) Qty: 14 RF: 0 Discharge Instructions Instructions: Chronic Pain (ED) Additional Instructions: Rest, ice, and elevate the affected area as much as possible. Alternate tylenol and motrin as needed and directed for pain. Continue take Flexeril as needed and directed for muscle spasm. Follow-up with your primary care doctor or orthopedics for further evaluation as needed. Return to the emergency department with any worsening or new concerning symptoms. Stand Alone Forms: Work Release Referrals: Deacon Wylie MD [ [facility] STAFF PHYSICIAN] - Discharge Data Discharge Date/Time-TO BE ENTERED AT DEPARTURE: 12/31/19 15:41 Discharge Physician: Elinor Farrell Medical Decision Making 29yo F w/ a h/o chronic L shoulder pain presents for return to work note after seen here for L shoulder pain and diagnosed with trapezius muscle spasm and sent home with flexeril. She states her shoulder pain is significantly improved and would like a note to return to work tomorrow. Shoulder normal to inspection. No pain with ROM of L shoulder. Neurovascularly intact. Pt requests another script for flexeril. Work note given. Advised to follow up with the primary care doctor for re-evaluation. Usual and customary return precautions given prior to discharge. HPI General Mode of arrival: ambulatory. Date/Time Provider Initiated Documentation: 12/31/19 15:09. Limitations to Documentation: no limitations. Information obtained by: patient. HPI Narrative: Pt is a 29yo F w/ chronic L shoulder pain who presents for return to work note after seen here recently for shoulder pain and diagnosed with trapezius muscle strain treated effectively with flexeril. Pt states her pain is near resolved and she feels much better and would like a return to work note. She is also requesting a new script for flexeril. Related Data Home Medications Medication Instructions Recorded Confirmed levothyroxine [Synthroid] 225 mcg PO QAM 09/15/12 12/31/19 Mirena 1 ea INTRAUTERINE ONCE 12/08/17 12/31/19 lamotrigine 2 tab PO DAILY 12/08/17 12/31/19 lidocaine 1 patch TOPICAL DAILY 06/06/18 12/31/19 venlafaxine [Effexor XR] 37.5 mg PO DAILY 06/06/18 12/31/19 lorazepam 0.5 mg PO TID PRN 12/28/19 12/31/19 cyclobenzaprine 10 mg PO Q8H PRN #14 tab 12/31/19 Previous Rx's Medication Instructions Recorded cyclobenzaprine 10 mg PO Q8H PRN #14 tab 12/31/19 Allergies Allergy/AdvReac Type Severity Reaction Status Date / Time hydromorphone [Hydromorphone] Allergy Severe Anaphylaxsi Unverified 12/31/19 15:13 s meperidine Allergy gi upset Unverified 12/31/19 15:13 itching codeine AdvReac Mild Nausea Unverified 12/31/19 15:13 General Stated Complaint: Orthopedic ALISHA: 4 Review of Systems All systems reviewed & are unremarkable except as noted in HPI and below Constitutional Constitutional: Reports as per HPI, Denies chills and Denies fever(s) Eyes Eyes: Denies blurry vision ENT Ears, Nose, Mouth, and Throat: Denies dizziness, Denies sore throat and Denies throat swelling Cardiovascular Cardiovascular: Denies chest pain and Denies dyspnea Respiratory Respiratory: Denies cough and Denies dyspnea Gastrointestinal Gastrointestinal: Denies abdominal pain, Denies diarrhea and Denies vomiting Genitourinary Genitourinary: Denies hematuria and Denies dysuria Musculoskeletal Musculoskeletal: Denies back pain and Denies numbness Integumentary/Breasts Skin/Breast: Denies lesions and Denies rash Neurologic Neurologic: Denies dizziness, Denies localized weakness and Denies numbness Allergic/Immunologic Allergic/Immunologic: Denies throat swelling [facility] Medical History (Updated 12/31/19 @ 15:30 by Elinor Farrell DO) Asthma Bipolar disorder GERD (gastroesophageal reflux disease) History of thyroid cancer Surgical History S/P thyroidectomy Tonsillectomy and adenoidectomy 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 Smoking/Tobacco Use Status: Former Tobacco Use Alcohol Intake: current Alcohol Intake frequency: a few times a week Drug use: Occasionally Substance use type: marijuana Do you feel safe at home: Yes Do you feel safe in your relationship?: Yes Exam Const General: cooperative and healthy appearing Orientation: alert and awake HENMT Head: normal to inspection Ears: hearing grossly normal bilaterally and external ears normal General nose exam: external nose normal Face and sinus: normal facial exam Mouth: oral mucosae normal Teeth and gingiva: dentition normal Throat: posterior oropharynx normal Eyes General: appearance normal, both eyes and all related structures Eyelids: eyelids normal EOM: EOM intact bilaterally Neck Neck: normal visual inspection Lymphatic: no lymphadenopathy noted Chest Chest: normal inspection of the chest Resp Effort & Inspection: normal respiratory effort and able to speak in complete sentences Auscultation: clear to auscultation bilaterally Cardio Rate: regular rate Rhythm: regular rhythm GI Inspection: normal to inspection Palpation: soft, not firm, no guarding, no hepatosplenomegaly, no masses and nontender Auscultation: normal bowel sounds Back/Spine/Pelvis Back: no CVA tenderness Skin General skin exam: no rashes or lesions noted Neuro General: patient alert and patient awake Cognition: normal cognition Speech: speech normal Gait: normal gait Motor: muscle tone normal throughout Sensory Exam: no sensory deficits noted Extrem General: normal to inspection, full ROM and capillary refill normal Left upper extremity: shoulder/upper arm Details: inspection abnormal and normal ROM; no tenderness, no swelling and no crepitus and hand Details: vascular exam Details: radial pulse present and ulnar pulse present Psych Appearance: grossly normal Mental Status: mental status grossly normal Speech and Movement: speech and movement normal Affect: normal affect Thought Process: normal Course Vital Signs Vital signs: Vital Signs Temperature 98.1 F 12/31/19 15:08 Pulse 108 H 12/31/19 15:08 Respiratory Rate 18 12/31/19 15:08 Blood Pressure 116/69 12/31/19 15:08 Pulse Oximetry 96 12/31/19 15:08 Temperature 98.1 F 12/31/19 15:08 Temperature Source Skin 12/31/19 15:08 Pulse 108 H 12/31/19 15:08 Respiratory Rate 18 12/31/19 15:08 Respiratory Effort Non-Labored 12/31/19 15:11 Blood Pressure 116/69 12/31/19 15:08 Blood Pressure Position Sitting 12/31/19 15:08 Pulse Oximetry 96 12/31/19 15:08 Oxygen Delivery Method Room Air 12/31/19 15:08 Oxygen Flow Rate 0 12/31/19 15:08 Pain Level 4 12/31/19 15:08
== END 2019-12-31 15:41 | disposition home or self-care (01) ==
PROVIDERS: Emergency Provider Physician Assistant; PCP Nurse Practitioner Family
DX: M25.512 Pain in left shoulder (principal); G89.29 Other chronic pain; Z02.79 Encounter for issue of other medical certificate
CPT/HCPCS: 99282

== ENCOUNTER 2020-08-31 15:17 | Outpatient (REF) | payer MEDICAID, SELFPAY ==
[2020-08-31 21:06] LABS: HCG Quant, Pregnancy < 1 mIU/mL (1-3)
== END 2020-08-31 15:18 | disposition home or self-care (01) ==
LOC: NCHCN 15:17
PROVIDERS: PCP Nurse Practitioner Family; Visit Provider Family Medicine
DX: N91.2 Amenorrhea, unspecified (principal)
CPT/HCPCS: 84702

== ENCOUNTER 2021-01-10 16:02 | Outpatient (REF) | payer MEDICAID, SELFPAY ==
[2021-01-10 21:49] LABS: FREE T4 0.47 ng/dL (0.76-1.46)
[2021-01-10 22:50] LABS: TSH 127.43 uIU/mL (0.36-3.74)
== END 2021-01-10 16:03 | disposition home or self-care (01) ==
LOC: NCHCN 16:02
PROVIDERS: PCP Nurse Practitioner Family; Visit Provider Nurse Practitioner Family
DX: E06.9 Thyroiditis, unspecified (principal)
CPT/HCPCS: 84439; 84443

== ENCOUNTER 2021-03-08 13:18 | Outpatient (REF) | payer MEDICAID, SELFPAY ==
[2021-03-08 16:13] LABS: FREE T4 1.44 ng/dL (0.76-1.46); TSH 0.08 uIU/mL (0.36-3.74)
[2021-03-08 21:51] LABS: T3,Free 4.7 pg/mL (2.8-5.3)
== END 2021-03-08 13:19 | disposition home or self-care (01) ==
LOC: NCHCN 13:18
PROVIDERS: PCP Nurse Practitioner Family; Visit Provider Nurse Practitioner Family
DX: E06.9 Thyroiditis, unspecified (principal); F31.60 Bipolar disorder, current episode mixed, unspecified; R51.9 Headache, unspecified
CPT/HCPCS: 84439; 84443; 84481

== ENCOUNTER 2021-05-06 02:03 | Outpatient (CLI) | payer MEDICAID, SELFPAY ==
[2021-05-06 16:18] LABS: Iron 50 ug/dL (50-170); Total Iron Binding Capacity 277 ug/dL (250-450); Transferrin Sat 18 % (15-50)
[2021-05-06 16:41] LABS: TSH 0.32 uIU/mL (0.36-3.74); Vitamin B12 314 pg/mL (193-986)
[2021-05-06 16:58] LABS: FREE T4 1.23 ng/dL (0.76-1.46)
[2021-05-09 05:29] LABS: Vitamin D 25 Total 16.1 ng/mL (30-100)
== END 2021-05-06 02:04 | disposition home or self-care (01) ==
PROVIDERS: PCP Nurse Practitioner Family; Visit Provider Internal Medicine Endocrinology, Diabetes & Metabolism
DX: E06.3 Autoimmune thyroiditis (principal); E89.0 Postprocedural hypothyroidism; E55.9 Vitamin D deficiency, unspecified; R53.82 Chronic fatigue, unspecified
CPT/HCPCS: 36415; 82306; 82607; 83540; 83550; 84439; 84443

== ENCOUNTER 2021-05-31 02:14 | Outpatient (CLI) | payer MEDICAID, SELFPAY ==
[2021-06-01 09:11] LABS: IgA 36 mg/dL (85-499); IgG 738 mg/dL (610-1,616)
[2021-06-01 18:22] LABS: Tissue Transglutaminase Ab IgA <1.2 U/mL
== END 2021-05-31 02:15 | disposition home or self-care (01) ==
PROVIDERS: PCP Nurse Practitioner Family; Visit Provider Internal Medicine Endocrinology, Diabetes & Metabolism
DX: E06.3 Autoimmune thyroiditis (principal); E55.9 Vitamin D deficiency, unspecified; R53.82 Chronic fatigue, unspecified
CPT/HCPCS: 36415; 82784; 83516

== ENCOUNTER 2021-07-19 16:12 | Emergency (ER) | payer MEDICAID, SELFPAY ==
[2021-07-19 16:16] VITALS: BP 123/85; PULSE 125; RESP 20; TEMP 37; O2SAT 97
--- NOTE | 2021-07-19 16:36 | ED.GENADUL_ITS ---
Discharge Plan Disposition Patient Disposition: AGAINST MEDICAL ADVICE Condition: Serious Discharge Details Clinical Impression: Opioid overdose Primary Care Provider: Valencia Adhikari ED Provider: Shannon Wallis Home Meds and New Rx's Prescriptions: No Action levothyroxine [Synthroid] 200 MCG tablet 200 mcg PO QAM 0RF lorazepam 0.5 mg tablet 0.5 mg PO TID PRN0RF lamotrigine 150 MG tablet 2 tab PO DAILY 0RF Mirena 1 EACH intrauterine device 1 ea Intrauterine ONCE 0RF lidocaine 5 % Adhesive Patch,Medicated 1 patch TOPICAL DAILY 0RF venlafaxine [Effexor XR] 37.5 mg Capsule,Extended Release 24hr 75 mg PO DAILY 0RF cyclobenzaprine 10 mg tablet 10 mg PO Q8H PRN (Reason: Spasms) Qty: 14 0RF cyanocobalamin (vitamin B-12) 500 mcg tablet 500 mcg PO DAILY 0RF ergocalciferol (vitamin D2) 1,250 mcg (50,000 unit) capsule 1,250 mcg PO 7XD 0RF ferrous sulfate 324 mg (65 mg iron) tablet,delayed release (DR/EC) 324 mg PO DAILY 0RF Discharge Instructions Instructions: Naloxone (Into the nose), Against Medical Advice (ED), Opioid Safety (ED) Additional Instructions: You are leaving AGAINST MEDICAL ADVICE. You may have life-threatening or lifestyle modifying disease that would go untreated. Please contact your primary care physician to arrange follow-up. Return to the ER at any time for further treatment as recommended. Referrals: Valencia Adhikari [Primary Care Provider] - Medical Decision Making 31-year-old female presents to the ER with chief complaint of accidental medication overdose. Patient reports that she had a beer around noon and had 1 pill of what she thought was a Percocet and fell asleep in her car. She then awoke with EMS. EMS administered 1 mg of Narcan on scene. BGL on scene was 189 heart rate 118. Patient is currently awake alert and oriented has the capacity to make her own decisions. She is requesting to leave. She denies any SI or HI. She reports that she took the medication for chronic shoulder pain. Past medical history includes asthma, premature delivery, bipolar, GERD, thyroid cancer, surgical history includes thyroidectomy tonsillectomy and adenoidectomy. She endorses alcohol few times a week she does endorse marijuana use and she is a former substance abuse user. Patient is requesting to sign out AMA despite explanations and encouragement to be observed for approximately an hour or 2. She is declining EKG or any further work-up. Patient does have the mental capacity to make her own decisions at this time she is alert and oriented x4. Patient requesting to leave AMA. The patient appears clinically sober at this time. Discussed risks and benefits with patient. Patient verbalizes understanding of situation and the risks of leaving including worsening condition, developing disability, including but not limited to . Discussed results of labs and imaging, if they were performed and recommendations for further treatment and/or observation. The patient verbalizes understanding of the results discussed. 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 At this time patient has opted to leave against medical advice. Patient is alert and oriented and has the capacity to make own decisions. Medical Records Medical records reviewed: Yes I reviewed the patient's medical records. Date: 07/19/21 Time: 16:52 Note: Patient seen, examined, and discussed with KANDIS Wallis. I agree with treatment plan as discussed/documented. I had a discussion with the patient about my diagnostic/treatment plan. Patient declines plan and wishes to leave against medical advise. I reiterated my concerns to the patient and explained the risks of leaving prior to completion of workup and treatment. I specifically emphasized the possibility of life- threatening or lifestyle modifying disease that would not be appropriately treated if they leave. Patient verbalized understanding of my concerns and the potential for life threatening or lifestyle modifying disease. Patient has cap acity to make informed decision. I again explained my concerns and urged the patient to stay for treatment as outlined. Patient continued to refuse. I then discussed potential less ideal alternatives to diagnostic/treatment plan as outlines and patient refused. I recommended that the patient follow-up with primary care physician RUSLAN or return to the Emergency Department at any time for further treatment. HPI General Mode of arrival: EMS . Date/Time Provider Initiated Documentation: 07/19/21 16:21 . Limitations to Documentation: no limitations (Very Anxious, tearful, and embarrassed) . Information obtained by: patient, police, EMS, RN notes reviewed and old records reviewed . HPI Narrative: 31-year-old female presents to the ER with chief complaint of accidental medication overdose. Patient reports that she had a beer around noon and had 1 pill of what she thought was a Percocet and fell asleep in her car. She then awoke with EMS. EMS administered 1 mg of Narcan on scene. BGL on scene was 189 heart rate 118. Patient is currently awake alert and oriented has the capacity to make her own decisions. She is requesting to leave. She denies any SI or H I. She reports that she took the medication for chronic shoulder pain. Past medical history includes asthma, premature delivery, bipolar, GERD, thyroid cancer, surgical history includes thyroidectomy tonsillectomy and adenoidectomy. She endorses alcohol few times a week she does endorse marijuana use and she is a former substance abuse user. Related Data Home Medications Medication Instructions Recorded Confirmed levothyroxine 200 mcg tablet 200 mcg PO QAM 09/15/12 07/19/21 (Synthroid) lamotrigine 150 mg tablet 2 tab PO DAILY 12/08/17 12/31/19 levonorgestrel 20 mcg/24 hours (7 1 ea INTRAUTERINE ONCE 12/08/17 12/31/19 yrs) 52 mg intrauterine device (Mirena) lidocaine 5 % topical patch 1 patch TOPICAL DAILY 06/06/18 12/31/19 venlafaxine 37.5 mg 75 mg PO DAILY 06/06/18 07/19/21 capsule,extended release 24 hr (Effexor XR) lorazepam 0.5 mg tablet 0.5 mg PO TID PRN 12/28/19 07/19/21 cyclobenzaprine 10 mg tablet 10 mg PO Q8H PRN #14 tab 12/31/19 cyanocobalamin (vitamin B-12) 500 500 mcg PO DAILY 07/19/21 07/19/21 mcg tablet ergocalciferol (vitamin D2) 1,250 1,250 mcg PO 7XD 07/19/21 07/19/21 mcg (50,000 unit) capsule ferrous sulfate 324 mg (65 mg 324 mg PO DAILY 07/19/21 07/19/21 iron) tablet,delayed release Previous Rx's Medication Instructions Recorded cyclobenzaprine 10 mg tablet 10 mg PO Q8H PRN #14 tab 12/31/19 Allergies Allergy/AdvReac Type Severity Reaction Status Date / Time hydromorphone [Hydromorphone] Allergy Severe Anaphylaxsi Unverified 07/19/21 16:20 s meperidine Allergy gi upset Unverified 07/19/21 16:20 itching codeine AdvReac Mild Nausea Unverified 07/19/21 16:20 General Stated Complaint: OD/Poison ALISHA: 3 Review of Systems All systems reviewed & are unremarkable except as noted in HPI and below Constitutional Constitutional: Denies fever(s) and Reports headache(s) ENT Ears, Nose, Mouth, and Throat: Reports headache(s) Cardiovascular Cardiovascular: Denies chest pain at rest, Reports rapid heart rate and Denies radiating jaw, neck or arm pain Respiratory Respiratory: Reports as per HPI, Denies cough and Denies hemoptysis Gastrointestinal Gastrointestinal: Denies abdominal pain Neurologic Neurologic: Reports headache(s) Psychiatric Psychiatric: Reports anxiety, Denies homicidal ideation and Denies suicidal ideation PFSH All Active Problems (Updated 07/19/21 @ 16:39 by Josh Schneider MD) Opioid overdose (Acute) Encounter for screening for other viral diseases (Acute) Asthma (Chronic) Premature delivery (Active 09/15/12) 32-week delivery Medical History (Updated 07/19/21 @ 16:39 by Josh Schneider MD) Bipolar disorder GERD (gastroesophageal reflux disease) History of thyroid cancer Surgical History S/P thyroidectomy Tonsillectomy and adenoidectomy 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 Smoking/Tobacco Use Status: Former Tobacco Use Smoking risk assessment performed?: Yes Alcohol Intake: current Alcohol Intake frequency: a few times a week Drug use: Occasionally Substance use type: marijuana Do you feel safe at home: Yes Do you feel safe in your relationship?: Yes Exam Narrative Exam Narrative: Constitutional: Alert and oriented x3. Appears stated age. Overweight body habitus. Head: Normocephalic, no trauma. Eyes: Pupils PERRL, Red reflex noted, EOM's intact. Eyelids symmetrical without lesions, discharge, or swelling. ENT: Bilateral TM's WNL, External ear normal to inspection, no mastoid TTP, swelling, or erythema, Nasal turbinates WNL, no nasal discharge. Normal dentition, Posterior pharynx WNL, no exudate. Chest: Sinus tachycardia, S1, S2, distal pulses intact. Resp: Lungs clear to auscultation bilaterally, no wheezes, rales, or rhonchi. Abdomen: Soft, non-distended, Normoactive bowel sounds all 4 quads. Musculoskeletal: Normal gait, 5/5 strength to all four extremities. Skin: No suspicious rashes or lesions. Capillary refill less than 2 sec. Neurologic: Cranial nerves II-XII intact. Alert and oriented x 3. Motor: No deficits noted. Sensory: Intact bilaterally all 4 extremities. Reflexes: DTR's intact bilaterally.. Hematologic/Lymphatic: No ecchymosis, no lymphadenopathy. Psych Appearance: well kempt Affect: anxious affect Attitude: cooperative Thought Content: normal, no homicidality and suicidality Insight: insight good Judgment: poor Course Vital Signs Vital signs: Vital Signs Temperature 37 C 07/19/21 16:16 Pulse 125 H 07/19/21 16:16 Respiratory Rate 20 07/19/21 16:16 Blood Pressure 123/85 07/19/21 16:16 Pulse Oximetry 97 07/19/21 16:16 Temperature 37 C 07/19/21 16:16 Temperature Source Temporal Artery Scan 07/19/21 16:16 Pulse 125 H 07/19/21 16:16 Respiratory Rate 20 07/19/21 16:16 Respiratory Effort Non-Labored 07/19/21 16:24 Blood Pressure 123/85 07/19/21 16:16 Blood Pressure Position Sitting 07/19/21 16:16 Pulse Oximetry 97 07/19/21 16:16 Oxygen Delivery Method Room Air 07/19/21 16:16 Oxygen Flow Rate 0 07/19/21 16:16
--- NOTE | 2021-07-19 17:11 | NUR.NOTE ---
toxics program officer asked me to draw blood for his kit. pt then asked to sign out AMA, gave pt paperwork and then gave her nasal narcan to take home. MEGAN
== END 2021-07-19 16:47 | disposition left against medical advice (07) ==
LOC: ER 18:29
PROVIDERS: Emergency Provider Registered Nurse Emergency; PCP Nurse Practitioner Family
DX: T40.2X1A Poisoning by other opioids, accidental (unintentional), initial encounter (principal); R40.4 Transient alteration of awareness; Z53.29 Procedure and treatment not carried out because of patient's decision for other reasons
CPT/HCPCS: 36415; 99283

== ENCOUNTER 2022-02-15 01:43 | Emergency (ER) | payer MEDICAID, SELFPAY ==
[2022-02-15 01:49] VITALS: BP 118/82; PULSE 104; RESP 18; TEMP 36.6; O2SAT 98
--- NOTE | 2022-02-15 02:04 | DI.CT_ITS ---
Exam(s) CT NECK W EXAM: CT NECK W CLINICAL HISTORY: left tooth abscess, facial cellulitis. TECHNIQUE: Imaging Protocol: Axial computed tomography images with coronal and sagittal reformatted images were created and reviewed CONTRAST MATERIAL: Intravenous: Omnipaque 350 Contrast volume:100 ml contrast COMPARISON: No exams were available for comparison FINDINGS: Parotids/submandibular glands: Normal. Thyroid: Surgically absent. Lymphadenopathy: No enlarged lymph nodes. Carotids/Jugular: No significant stenosis or dissection.. Soft tissues: Left-sided facial swelling and stranding in the fat . No drainable abscess. Findings consistent with cellulitis. Floor of the mouth mildly obscured by dental artifact. The epiglottis and vocal cords are within normal limits. Lungs: Images through both lung apices are unremarkable. Bones: Dental oriana involving left maxillary premolar with apical lucency. Visualized portions of the brain and orbits: Unremarkable. Sinuses and mastoids: Mild mucosal thickening left maxillary sinus. IMPRESSION: Periapical dental abscess of left maxillary premolar. Adjacent cellulitis of the face. No drainable abscess. RADIATION DOSE DELIVERED: 511.31mGy.cm Total DLP DATA REPOSITORY: All CT scans at this facility are submitted to the National Radiology Data Registry (NRDR) Dose Index Registry (DIR) with the [employer] (A[employer]). RADIATION OPTIMIZATION: All CT scans at this facility use at least one of these dose optimization te chniques: automated exposure control; mA and/or kV adjustment per patient size (includes targeted exa ms where dose is matched to clinical indication); or iterative reconstruction.
[2022-02-15 02:17] LABS: Abs Immature Grans 0.03 10^3/uL (0.0-0.06); Absolute Basophil Count 0.06 10^3/uL (0.0-0.2); Absolute Monocyte Count 1.13 10^3/uL (0.1-0.8); Basophils % 0.4; Eosinophils % 0.4; HCT 42.1 % (36.0-46.0); HGB 14.7 g/dL (11.2-15.7); Immature Grans % 0.2; Lymphocytes % 13.7; MCH 36.2 pg (27.0-33.0); MCHC 34.9 % (32.0-36.0); MCV 104 fL (80-95); MPV 11.5 fL (8.0-11.0); Monocytes % 8.2; Neutrophils % 77.1; Platelet Count 158 10^3/uL (130-400); RBC 4.06 10^6/uL (3.93-5.22); RDW-SD 54.4 fL; WBC 13.82 10^3/uL (4.4-10.8)
[2022-02-15 02:21] LABS: Absolute Eosinophil Count 0.06 10^3/uL (0.0-0.7); Absolute Lymphocyte Count 1.89 10^3/uL (1.2-3.4); Absolute Neutrophil Count 10.66 10^3/uL (1.2-6.7)
[2022-02-15] MEDS: Normal Saline 1,000 ML 1000 ML IV (02:25)
[2022-02-15] MEDS: Ketorolac 15 MG/ML VIAL IVP (02:25)
[2022-02-15] MEDS: AMPICILLIN/SULBACTAM 3 GM in Normal Saline 100 ML IVPB (02:25)
[2022-02-15 02:33] LABS: ALT 28 U/L (14-59); AST 26 U/L (15-37); Albumin 3.9 g/dL (3.4-5.0); Alkaline Phosphatase 95 U/L (46-116); Anion Gap 8.1 mmol/L (3-11); BUN 6 mg/dL (7-18); Bilirubin, Total 2.3 mg/dL (0.2-1.0); CO2 25.9 mmol/L (21.0-32.0); CREATININE 0.8 mg/dL (0.55-1.02); Chloride 102 mmol/L (98-107); Estimated GFR 101.59 (mL/min/1.73m2); Glucose 111 mg/dL (74-106); Potassium 3.5 mmol/L (3.5-5.1); Sodium 136 mmol/L (136-145); Total Protein 7.6 g/dL (6.4-8.2)
[2022-02-15] MEDS: Omnipaque 350 MG/ML 100 ML BTL IJ (02:35)
[2022-02-15] MEDS: Normal Saline Flush 10 ML SYR IVP (02:36)
--- NOTE | 2022-02-15 03:17 | ED.GENADUL_ITS ---
Discharge Plan Disposition Patient Disposition: HOME Condition: Improving Discharge Details Clinical Impression: Facial cellulitis Primary Care Provider: Valencia Adhikari ED Provider: Vel Ellington Home Meds and New Rx's Prescriptions: New amoxicillin-pot clavulanate 875-125 mg tablet 1 tab PO BID 10 Days Qty: 20 0RF amoxicillin-pot clavulanate 875-125 mg tablet 1 tab PO BID 10 Days Qty: 20 0RF oxycodone-acetaminophen [Percocet] 5-325 mg tablet 1 tab PO BID PRNQty: 4 0RF Rx Instructions: prn severe pain No Action levothyroxine [Synthroid] 200 MCG tablet 200 mcg PO QAM lorazepam 0.5 mg tablet 0.5 mg PO TID PRN lamotrigine 150 MG tablet 2 tab PO DAILY Mirena 1 EACH intrauterine device 1 ea Intrauterine ONCE lidocaine 5 % Adhesive Patch,Medicated 1 patch TOPICAL DAILY venlafaxine [Effexor XR] 37.5 mg Capsule,Extended Release 24hr 75 mg PO DAILY cyclobenzaprine 10 mg tablet 10 mg PO Q8H PRN (Reason: Spasms) Qty: 14 0RF cyanocobalamin (vitamin B-12) 500 mcg tablet 500 mcg PO DAILY ergocalciferol (vitamin D2) 1,250 mcg (50,000 unit) capsule 1,250 mcg PO 7XD ferrous sulfate 324 mg (65 mg iron) tablet,delayed release (DR/EC) 324 mg PO DAILY Discharge Instructions Instructions: Cellulitis (ED) Additional Instructions: Please see your dentist as scheduled. Please take medications as prescribed. Please return to the emergency department for any worsening symptoms. Medical Decision Making 31-year-old female presents with 4 days of dental pain and facial swelling, involving maxillary buccal and infraorbital soft tissue of the left side of the face, tolerating secretions normal voice no submandibular or submental involvement. High clinical suspicion for dental abscess and facial cellulitis. Have obtained labs cultures CT head and neck with contrast, have started patient on Unasyn, analgesia and anti-inflammatory. Close reassessment disposition pending results. 4: 46 after Unasyn and Toradol great improvement of facial swelling, patient can now open her left eye more appropriately, tolerating secretions normal voice. Hemodynamically stable. No discrete collection to signify abscess, likely facial cellulitis. Patient has appointment today to see her dentist. Will be given Augmentin. Given strict return precautions for poor healing or worsening symptoms. HPI General Date/Time Provider Initiated Documentation: 02/15/22 02:04 . HPI Narrative: 31-year-old female presents with 4 days of tooth pain and facial swelling started as a tooth ache left upper region, swelling began in her face over the past 2 to 3 days, swelling is now spread to her cheek and towards her left eye. Related Data Home Medications Medication Instructions Recorded Confirmed levothyroxine 200 mcg tablet 200 mcg PO QAM 09/15/12 07/19/21 (Synthroid) lamotrigine 150 mg tablet 2 tab PO DAILY 12/08/17 12/31/19 levonorgestrel 20 mcg/24 hours (8 1 ea intrauterine ONCE 12/08/17 12/31/19 yrs) 52 mg intrauterine device (Mirena) lidocaine 5 % topical patch 1 patch topical DAILY 06/06/18 12/31/19 venlafaxine 37.5 mg 75 mg PO DAILY 06/06/18 07/19/21 capsule,extended release 24 hr (Effexor XR) lorazepam 0.5 mg tablet 0.5 mg PO TID PRN 12/28/19 07/19/21 cyclobenzaprine 10 mg tablet 10 mg PO Q8H PRN Spasms #14 tabs 12/31/19 cyanocobalamin (vitamin B-12) 500 500 mcg PO DAILY 07/19/21 07/19/21 mcg tablet ergocalciferol (vitamin D2) 1,250 1,250 mcg PO 7XD 07/19/21 07/19/21 mcg (50,000 unit) capsule ferrous sulfate 324 mg (65 mg 324 mg PO DAILY 07/19/21 07/19/21 iron) tablet,delayed release amoxicillin 875 mg-potassium 1 tab PO BID 10 days #20 tabs 02/15/22 clavulanate 125 mg tablet amoxicillin 875 mg-potassium 1 tab PO BID 10 days #20 tabs 02/15/22 clavulanate 125 mg tablet oxycodone-acetaminophen 5 mg-325 1 tab PO BID PRN #4 tabs 02/15/22 mg tablet (Percocet) Previous Rx's Medication Instructions Recorded cyclobenzaprine 10 mg tablet 10 mg PO Q8H PRN Spasms #14 tabs 12/31/19 amoxicillin 875 mg-potassium 1 tab PO BID 10 days #20 tabs 02/15/22 clavulanate 125 mg tablet amoxicillin 875 mg-potassium 1 tab PO BID 10 days #20 tabs 02/15/22 clavulanate 125 mg tablet oxycodone-acetaminophen 5 mg-325 1 tab PO BID PRN #4 tabs 02/15/22 mg tablet (Percocet) Allergies Allergy/AdvReac Type Severity Reaction Status Date / Time hydromorphone [Hydromorphone] Allergy Severe Anaphylaxsi Unverified 07/19/21 16:20 s meperidine Allergy gi upset Unverified 07/19/21 16:20 itching codeine AdvReac Mild Nausea Unverified 07/19/21 16:20 General Stated Complaint: DentalOral ALISHA: 4 Review of Systems Narrative: Review of Systems Constitutional: negative Eyes: negative ENT: Dental pain, facial swelling Cardiovascular: negative Respiratory: negative Gastrointestinal: negative : negative Musculoskeletal: negative Skin: negative Neurologic: negative Psych: negative PFSH All Active Problems (Updated 02/15/22 @ 04:47 by Vel Ellington MD) Facial cellulitis (Acute) Encounter for screening for other viral diseases (Acute) Asthma (Chronic) Premature delivery (Active 09/15/12) 32-week delivery Medical History (Updated 02/15/22 @ 04:47 by Vel Ellington MD) Bipolar disorder GERD (gastroesophageal reflux disease) History of thyroid cancer Surgical History S/P thyroidectomy Tonsillectomy and adenoidectomy 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 Smoking/Tobacco Use Status: Former Tobacco Use Smoking risk assessment performed?: Yes Alcohol Intake: current Alcohol Intake frequency: a few times a week Drug use: Occasionally Substance use type: marijuana Do you feel safe at home: Yes Do you feel safe in your relationship?: Yes Exam Narrative Exam Narrative: Physical Examination General: alert, awake, cooperative, resting comfortably, no acute distress HEENT: Large induration to left buccal maxillary and infraorbital soft tissue, tolerating secretions normal voice no stridor no submandibular or submental involvement Neck: supple, trachea midline; full ROM Chest: normal to inspection Respiratory: normal respiratory effort, speaking in full sentences, clear to auscultation, no wheezing, rales or rhonchi Cardiac: regular rate, regular rhythm, S1S2 intact, no murmurs rubs or gallops GI: abdomen soft, non-tender, non-distended; no palpable mass or hepatosplenomegaly Skin: no lesions, rashes or trauma appreciated Neuro: AAOx3, normal speech, moving all extremities Psych: Appropriate mood and affect Course Vital Signs Vital signs: Vital Signs Temperature 36.6 C 02/15/22 01:49 Pulse 104 H 02/15/22 01:49 Respiratory Rate 18 02/15/22 01:49 Blood Pressure 118/82 02/15/22 01:49 Pulse Oximetry 98 02/15/22 01:49 Temperature 36.6 C 02/15/22 01:49 Temperature Source Tympanic 02/15/22 01:49 Pulse 104 H 02/15/22 01:49 Respiratory Rate 18 02/15/22 01:49 Respiratory Effort 02/15/22 01:51 Blood Pressure 118/82 02/15/22 01:49 Blood Pressure Position Supine 02/15/22 01:49 Pulse Oximetry 98 02/15/22 01:49 Oxygen Delivery Method Room Air 02/15/22 01:49 Oxygen Flow Rate 0 02/15/22 01:49 Pain Level 10 02/15/22 01:49 Lab/Test Results Lab/Test Results: 02/15/22 02:22 Blood Blood Culture - Pending 02/15/22 02:12 Blood Blood Culture - Pending Laboratory Tests Range/Units 02/15/22 02/15/22 02:12 02:12 WBC (4.4-10.8) 10^3/uL 13.82 H RBC (3.93-5.22) 10^6/uL 4.06 Hgb (11.2-15.7) g/dL 14.7 Hct (36.0-46.0) % 42.1 MCV (80-95) fL 104 H MCH (27.0-33.0) pg 36.2 H MCHC (32.0-36.0) % 34.9 RDW (11.7-14.6) % 14.0 Plt Count (130-400) 10^3/uL 158 MPV (8.0-11.0) fL 11.5 H Immature Gran % 0.2 Neutrophils % 77.1 Lymphocytes % 13.7 Monocytes % 8.2 Eosinophils % 0.4 Basophils % 0.4 Nucleated RBC % (0.0-0.3) % 0.0 Absolute Neutrophils (1.2-6.7) 10^3/uL 10.66 H Absolute Lymphocytes (1.2-3.4) 10^3/uL 1.89 Absolute Monocytes (0.1-0.8) 10^3/uL 1.13 H Absolute Eosinophils (0.0-0.7) 10^3/uL 0.06 Absolute Basophils (0.0-0.2) 10^3/uL 0.06 Sodium (136-145) mmol/L 136 Potassium (3.5-5.1) mmol/L 3.5 Chloride (98-107) mmol/L 102 Carbon Dioxide (21.0-32.0) mmol/L 25.9 Anion Gap (3-11) mmol/L 8.1 BUN (7-18) mg/dL 6 L Creatinine (0.55-1.02) mg/dL 0.8 Est GFR (CKD-EPI 2020) (mL/min/1.73m2) 101.59 Glucose (74-106) mg/dL 111 H Calcium (8.5-10.1) mg/dL 9.0 Total Bilirubin (0.2-1.0) mg/dL 2.3 H AST (15-37) U/L 26 ALT (14-59) U/L 28 Alkaline Phosphatase (46-116) U/L 95 Total Protein (6.4-8.2) g/dL 7.6 Albumin (3.4-5.0) g/dL 3.9 POC- Test(urine) Negative
--- NOTE | 2022-02-15 04:39 | DI.VRAD_ITS ---
PROCEDURE INFORMATION: Exam: CT Neck With Contrast Exam date and time: 02/15/2022 2:54 AM Age: 31 years old Clinical indication: Pain; Other: Left tooth abscess/ facial cellulitis; Prior surgery; Surgery date: 6+ months; Surgery type: Thyroidectomy, tonsillectomy, adenoidectomy; Patient HX: Left tooth abscess, facial cellulitis; Additional info: HX of thyroid CA TECHNIQUE: Imaging protocol: Computed tomography of the neck with contrast. Radiation optimization: All CT scans at this facility use at least one of these dose optimization techniques: automated exposure control; mA and/or kV adjustment per patient size (includes targeted exams where dose is matched to clinical indication); or iterative reconstruction. Contrast material: OMNIPAQUE 350; Contrast volume: 100 ml; Contrast route: INTRAVENOUS (IV); COMPARISON: CT HEAD WITHOUT CONTRAST 11/17/2016 5:40 PM FINDINGS: Paranasal sinuses: Mild mucosal thickening noted in the left maxillary sinus. No layering fluid observed in the paranasal sinuses. Oral cavity: Mild fluid and moderate fat stranding are noted in the left field spec space. Floor of the mouth structures are symmetric and unremarkable. Dental: Large dental oriana and apical abscess noted in a left maxillary premolar. Please see sagittal image 29. Pharynx: Unremarkable pharyngeal mucosal space. Dixon tonsillar pillars are unremarkable. Parapharyngeal fat spaces are normal and intact. Larynx: Normal epiglottis. Unremarkable larynx. Prevertebral and retropharyngeal spaces: Normal retropharyngeal space. No abnormal fluid accumulation or gas. Salivary glands: Normal. Glands are normal in size. Thyroid: Prior thyroidectomy. Lymph nodes: No significant lymphadenopathy. Trachea: Visualized trachea is unremarkable. Lungs: Unremarkable as visualized. Bones/joints: Unremarkable. No acute fracture. Soft tissues: Moderate subcutaneous fat stranding and thickening of the platysma are noted on the left. IMPRESSION: Left-sided odontogenic infection. Cellulitis suspected. No specific abscess. Dictated and Authenticated by: Harsha Cooper MD. Ordering:MADELYN Crowder MD
== END 2022-02-15 05:11 | disposition home or self-care (01) ==
PROVIDERS: Emergency Provider Emergency Medicine; PCP Nurse Practitioner Family
DX: L03.211 Cellulitis of face (principal); Z32.02 Encounter for pregnancy test, result negative
CPT/HCPCS: 36415; 70491; 80053; 81025; 87040; 96365; 96375; 99285; 85025; 99283; J0295; J1885; J3490

== ENCOUNTER 2022-05-18 03:34 | Emergency (ER) | payer OTHER, SELFPAY ==
[2022-05-18 03:39] VITALS: BP 132/85; PULSE 98; RESP 20; TEMP 36.5; O2SAT 98
--- NOTE | 2022-05-18 03:49 | W.ED.GENAD ---
Discharge Plan Disposition Patient Disposition: Home Condition: Good Discharge Details Clinical Impression: Acute left-sided back pain Primary Care Provider: Valencia Adhikari ED Provider: Behzad Candelaria Home Meds and New Rx's Prescriptions: New lidocaine [Lidoderm] 5 % adhesive patch,medicated 1 patch Topical Q24H Qty: 15 0RF cyclobenzaprine 10 mg tablet 10 mg PO TID Qty: 14 0RF prednisone 50 mg tablet 50 mg PO DAILY Qty: 5 0RF No Action levothyroxine [Synthroid] 200 MCG tablet 200 mcg PO QAM Discharge Instructions Instructions: Back Pain (ED) Additional Instructions: At this time your signs and symptoms are clinically consistent with a back sprain. This can cause significant pain and take a fair bit of time to heal. I expect 1 to 2 months for potential resolution. In the meantime do not lift anything greater than 5 pounds for the next 2 weeks. Avoid any significant vigorous physical activity. Perform easy gentle regular activities at home without any significant bending or lifting. Please take the steroids as directed. You have been given a prescription for Lidoderm patch. If your insurance does not cover this you can get haed-vyh-vaepbuy Lidoderm patches at 4% which are almost just as effective. Please take the Flexeril as directed but do not take it when driving or operating any vehicles or heavy machinery, swimming, taking long baths, or operating firearms. Please use a heating pad as often as possible on your back. Perform daily gentle stretches on your back. Please continue to take the Tylenol and Motrin. You can take 1000 mg of Tylenol every 6 hours and 600 mg of ibuprofen every 6 hours. If you notice any worsening of your symptoms, or any new symptoms such as vomiting, diarrhea, fever, chills, shortness of breath, chest pain, numbness or tingling in your groin or legs, weakness in your legs, loss of control for your bowels or bladder, or fainting , please return immediately to the emergency department for reevaluation. Please follow up with your primary care provider as soon as possible for reassessment and reevaluation. As always, it was a pleasure participating in your medical care today. Stand Alone Forms: Work Release Referrals: Valencia Adhikari [Primary Care Provider] - Medical Decision Making This is a pleasant 31-year-old female with a past medical history of hypothyroidism secondary to thyroidectomy, who presents today for left lower back pain. Patient states that her basement flooded, and so she has been taking out multiple barrels of goods and water throughout the evening. After they had gotten the basement cleared out she stopped and rested and noticed that her back was starting to feel tight. Throughout the night it continued to get tighter and the pain on the left-hand side worsen. She denies any urinary complaints. Patient denies any saddle anesthesia, numbness or tingling in the groin, change in sensation when wiping. Patient denies any change in sensation during sexual intercourse, bowel or bladder incontinence, leakage, or retention. Patient denies any weakness in the lower extremities, atypical falls or imbalance. She denies any falls or trauma. No other complaints at this time. She did take Tylenol and Motrin but this did not change her pain at all. No history of kidney stones. She had a heating pad at home that she has not had the opportunity to use yet Exam demonstrates well-appearing female, notable left lumbar paraspinal spasm. No signs or symptoms concerning for cauda equina syndrome. She has had no falls or trauma, symptoms inconsistent with fracture. At this time the patient's symptoms appear consistent with a left paraspinal spasm. No indication for emergent imaging at this time based on clinical exam and assessment. Patient will be discharged with Lidoderm patch, prescription for steroids muscle relaxants recommendation for continued NSAIDs and heating pad use. Work note has been given. Discussed red flags for which to return. I have extensively reviewed the treatment plan and discharge instructions with the patient. I have addressed all patient concerns at this time. The patient was made aware of what symptoms to monitor for that would warrant a return to the emergency department. Discussed the plan with the patient, they demonstrate verbal understanding and agreement with our assessment and plan at this time. The documentation in this chart was dictated using [employer] dictation software. Please excuse any dictation errors. HPI General Date/Time Provider Initiated Documentation: 05/18/22 03:36. HPI Narrative: This is a pleasant 31-year-old female with a past medical history of hypothyroidism secondary to thyroidectomy, who presents today for left lower back pain. Patient states that her basement flooded, and so she has been taking out multiple barrels of goods and water throughout the evening. After they had gotten the basement cleared out she stopped and rested and noticed that her back was starting to feel tight. Throughout the night it continued to get tighter and the pain on the left-hand side worsen. She denies any urinary complaints. Patient denies any saddle anesthesia, numbness or tingling in the groin, change in sensation when wiping. Patient denies any change in sensation during sexual intercourse, bowel or bladder incontinence, leakage, or retention. Patient denies any weakness in the lower extremities, atypical falls or imbalance. She denies any falls or trauma. No other complaints at this time. She did take Tylenol and Motrin but this did not change her pain at all. No history of kidney stones. She had a heating pad at home that she has not had the opportunity to use yet Related Data Home Medications Medication Instructions Recorded Confirmed levothyroxine 200 mcg tablet 200 mcg PO QAM 09/15/12 05/18/22 (Synthroid) cyclobenzaprine 10 mg tablet 10 mg PO TID #14 tabs 05/18/22 lidocaine 5 % topical patch 1 patch topical Q24H #15 ea 05/18/22 (Lidoderm) prednisone 50 mg tablet 50 mg PO DAILY #5 tabs 05/18/22 Previous Rx's Medication Instructions Recorded cyclobenzaprine 10 mg tablet 10 mg PO TID #14 tabs 05/18/22 lidocaine 5 % topical patch 1 patch topical Q24H #15 ea 05/18/22 (Lidoderm) prednisone 50 mg tablet 50 mg PO DAILY #5 tabs 05/18/22 Allergies Allergy/AdvReac Type Severity Reaction Status Date / Time hydromorphone [Hydromorphone] Allergy Severe Anaphylaxsi Unverified 07/19/21 16:20 s meperidine Allergy gi upset Unverified 07/19/21 16:20 itching codeine AdvReac Mild Nausea Unverified 07/19/21 16:20 General Stated Complaint: Nk/Back Pain ALISHA: 4 Review of Systems All systems reviewed & are unremarkable except as noted in HPI and below PFSH All Active Problems Acute left-sided back pain (Acute) Encounter for screening for other viral diseases (Acute) Asthma (Chronic) Premature delivery (Active 09/15/12) 32-week delivery Medical History Bipolar disorder GERD (gastroesophageal reflux disease) History of thyroid cancer Surgical History S/P thyroidectomy Tonsillectomy and adenoidectomy 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 Smoking/Tobacco Use Status: Former Tobacco Use Smoking risk assessment performed?: Yes Alcohol Intake: current Alcohol Intake frequency: a few times a week Drug use: Occasionally Substance use type: marijuana Do you feel safe at home: Yes Do you feel safe in your relationship?: Yes Exam Narrative Exam Narrative: 1.Const: Well-nourished, Well-developed, appearing stated age 2.Eyes: PERRL, no conjunctival injection, and symmetrical lids. 3.ENT: Atraumatic external nose and ears. Moist MM. Neck: Symmetric, trachea midline, No thyromegaly. 4.CVS: +S1/S2, No murmurs or gallops. Peripheral pulses 2+ and equal in all extremities. Brisk capillary refill in all extremities. 5.RESP: Unlabored respiratory effort. Clear to auscultation bilaterally. No wheezes rales or rhonchi 6.GI: Soft, Nontender/Nondistended, No hepatosplenomegaly. No guarding or rebound. 7.MSK: Normocephalic/Atraumatic, Extremities w/o deformity or ttp No cyanosis or clubbing, Normal movement of all extremities No midline tenderness to palpation over the CTLS spine. However the patient does have notable lower left lumbar spinal spasm and tenderness over the spasm itself. Normal ROM in flexion, extension, side bend, and rotation. Patient has +5 out of 5 strength in the lower extremities in dorsiflexion and plantarflexion, knee flexion and extension, hip flexion and extension. Normal strength for dorsiflexion and plantar flexion of the great toe bilaterally. There is +2 over 2 dorsalis pedis pulses bilaterally. There is normal sensation to the skin with light touch at the foot, knee, and hip. Normal saddle sensation. Good sensation over the deep sural nerve area bilaterally. Rectal exam demonstrates good rectal tone and perirectal sensation. Reflexes are +2 over 4 in the patellar reflex bilaterally. +5 out of 5 strength in the medial, ulnar, radial nerve distribution bilaterally in the hands as well as intact light touch sensation to these dermatomes on the hands 8.Skin: Warm, Dry. No rashes or lesions. 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 Sensation grossly intact, no focal neurologic deficits. 10.Psych: (AAO) x3. Appropriate mood and affect Course Vital Signs Vital signs: Vital Signs Temperature 36.5 C 05/18/22 03:39 Pulse 98 H 05/18/22 03:39 Respiratory Rate 20 05/18/22 03:39 Blood Pressure 132/85 05/18/22 03:39 Pulse Oximetry 98 05/18/22 03:39 Temperature 36.5 C 05/18/22 03:39 Temperature Source Temporal Artery Scan 05/18/22 03:39 Pulse 98 H 05/18/22 03:39 Respiratory Rate 20 05/18/22 03:39 Respiratory Effort Non-Labored 05/18/22 03:42 Blood Pressure 132/85 05/18/22 03:39 Blood Pressure Position Standing 05/18/22 03:39 Pulse Oximetry 98 05/18/22 03:39 Oxygen Delivery Method Room Air 05/18/22 03:39 Oxygen Flow Rate 0 05/18/22 03:39 Pain Level 9 05/18/22 03:39
[2022-05-18] MEDS: predniSONE 20 MG TAB 60 MG PO (03:57)
[2022-05-18] MEDS: Lidocaine 5% Patch 1 PATCH TP (03:57)
[2022-05-18] MEDS: Cyclobenzaprine 10 MG TAB, 3 TABS/BTL PO (03:57)
== END 2022-05-18 04:05 | disposition home or self-care (01) ==
PROVIDERS: Emergency Provider Student in an Organized Health Care Education/Training Program; PCP Nurse Practitioner Family
DX: M54.50 Low back pain, unspecified (principal); X50.0XXA Overexertion from strenuous movement or load, initial encounter; X50.3XXA Overexertion from repetitive movements, initial encounter; M62.830 Muscle spasm of back
CPT/HCPCS: 99283; 99284; J7512

== ENCOUNTER 2022-05-31 10:22 | Outpatient (REF) | payer MEDICAID, SELFPAY ==
[2022-05-31 15:14] LABS: TSH (W/Ref FT4) 47.29 uIU/mL (0.36-3.74)
[2022-05-31 15:33] LABS: FREE T4 0.96 ng/dL (0.76-1.46)
== END 2022-05-31 10:23 | disposition home or self-care (01) ==
LOC: NCHCN 10:22
PROVIDERS: PCP Nurse Practitioner Family; Visit Provider Family Medicine
DX: E03.9 Hypothyroidism, unspecified (principal); Z00.00 Encounter for general adult medical examination without abnormal findings
CPT/HCPCS: 84439; 84443

== ENCOUNTER 2022-11-01 08:23 | Outpatient (REF) | payer MEDICAID, SELFPAY ==
[2022-11-01 18:52] LABS: TSH 151.39 uIU/mL (0.36-3.74)
== END 2022-11-01 08:24 | disposition home or self-care (01) ==
LOC: NCHCN 08:23
PROVIDERS: PCP Nurse Practitioner Family; Visit Provider Nurse Practitioner Family
DX: E03.9 Hypothyroidism, unspecified (principal)
CPT/HCPCS: 84443

== ENCOUNTER 2023-02-18 12:27 | Emergency (ER) | payer MEDICAID, SELFPAY ==
[2023-02-18 12:33] VITALS: BP 122/94; PULSE 77; RESP 18; TEMP 37.1; O2SAT 99
[2023-02-18] MEDS: Ketorolac 15 MG/ML VIAL IVP (13:21)
--- NOTE | 2023-02-18 13:39 | ED.GENADUL_ITS ---
Discharge Plan Disposition Patient Disposition: Home Discharge Details Clinical Impression: Second degree burn of multiple sites of right hand Primary Care Provider: Valencia Adhikari ED Provider: Kris Lund Home Meds and New Rx's Prescriptions: New diclofenac potassium 50 mg tablet 50 mg PO TID PRN (Reason: pain) Qty: 15 0RF No Action levothyroxine [Synthroid] 200 MCG tablet 200 mcg PO QAM Discharge Instructions Instructions: Second-Degree Burn (ED), Acute Wound Care (ED) Additional Instructions: Continue to watch for any signs of infection and please return immediately for any signs of infection. Otherwise you may continue to use [id number] acetaminophen pain medication as needed for discomfort. We have also prescribed you some nonnarcotic pain medication and take as directed. While taking this please do not take any [id number] NSAIDs including aspirin, ibuprofen, Motrin, Advil, or Aleve. Stand Alone Forms: Work Release Referrals: Valencia Adhikari [Primary Care Provider] - (As needed for reassessment) Medical Decision Making Patient presenting to the emergency department for chief complaint of burn to right hand. Patient states that last night she fell asleep and woke up with her hand burn but does not know how this occurred. Patient denies any other injury or trauma. Physical exam shows second-degree burn to the second third and fourth digits with blisters on all of the fingers but on the middle finger the blister is popped. No signs of infection sensation is intact and exam is otherwise noncontributory. Patient does have jewelry in place on the fingers which we were able to remove to prevent any secondary injury due to swelling. Due to significant amount of pain and discomfort patient given ketorolac, acetaminophen, and morphine prior to ring removal. Wounds were dressed with bacitracin and gauze and acute wound care education was given to patient. After discussion of diagnosis and plan of care patient has no further needs, questions, or concerns and states clear understanding to return to the emergency department for any worsening symptoms. This documentation was generated using [employer] system, please disregard any oddities of phrase or misspellings. HPI General Mode of arrival: ambulatory . Date/Time Provider Initiated Documentation: 02/18/23 12:32 . Limitations to Documentation: no limitations . Information obtained by: patient and RN notes reviewed . History of Present Illness 32 year old F presents to the emergency department with the chief complaint of Right hand burn, described as moderate and severe, Quality is described as burning, and is localized to the right and upper extremity. Patient started experiencing this day(s) (1) and it has been constant. No relieving factors improve symptom(s), Patient notes no other symptoms.. Related Data Home Medications Medication Instructions Recorded Confirmed levothyroxine 200 mcg tablet 200 mcg PO QAM 09/15/12 02/18/23 (Synthroid) diclofenac potassium 50 mg tablet 50 mg PO TID PRN pain #15 tabs 02/18/23 Previous Rx's Medication Instructions Recorded diclofenac potassium 50 mg tablet 50 mg PO TID PRN pain #15 tabs 02/18/23 Allergies Allergy/AdvReac Type Severity Reaction Status Date / Time hydromorphone [Hydromorphone] Allergy Severe Anaphylaxsi Unverified 02/18/23 12:38 s meperidine Allergy gi upset Unverified 02/18/23 12:38 itching codeine AdvReac Mild Nausea Unverified 02/18/23 12:38 General Stated Complaint: Burn ALISHA: 3 Review of Systems Cardiovascular Cardiovascular: Denies dyspnea Respiratory Respiratory: Denies cough and Denies dyspnea Integumentary/Breasts Skin/Breast: Reports as per HPI PFSH All Active Problems Second degree burn of multiple sites of right hand (Acute) Encounter for screening for other viral diseases (Acute) Asthma (Chronic) Premature delivery (Active 09/15/12) 32-week delivery Medical History GERD (gastroesophageal reflux disease) Bipolar disorder History of thyroid cancer Surgical History S/P thyroidectomy Tonsillectomy and adenoidectomy 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 Smoking/Tobacco Use Status: Former Tobacco Use Smoking risk assessment performed?: Yes Alcohol Intake: current Alcohol Intake frequency: a few times a week Drug use: Occasionally Substance use type: marijuana Housing: apartment Do you feel safe at home: Yes Do you feel safe in your relationship?: Yes Exam Const General: cooperative, no acute distress and not ill appearing Orientation: alert, awake and oriented x3 HENMT Mouth: moist mucous membranes Resp Effort & Inspection: normal respiratory effort, able to speak in complete sentences and no respiratory distress Cardio Rate: regular rate Rhythm: regular rhythm Pulses: normal peripheral pulses Neuro General: patient alert, patient awake, patient oriented x3, moves all ext remities and no focal motor deficits Sensory Exam: no sensory deficits noted Extrem General: normal exam except as noted Right upper extremity: hand Details: neuromotor exam normal, neurosensory exam normal, vascular exam Details: radial pulse present and normal capillary refill and other (Second-degree burn with blistering to second third and fourth digits with third digit having blister popped other ones intact) Course Vital Signs Vital signs: Vital Signs Temperature 37.1 C 02/18/23 12:33 Pulse 77 02/18/23 12:33 Respiratory Rate 18 02/18/23 12:33 Blood Pressure 122/94 H 02/18/23 12:33 Pulse Oximetry 99 02/18/23 12:33 Temperature 37.1 C 02/18/23 12:33 Temperature Source Skin 02/18/23 12:33 Pulse 77 02/18/23 12:33 Respiratory Rate 18 02/18/23 12:33 Blood Pressure 122/94 H 02/18/23 12:33 Blood Pressure Position Sitting 02/18/23 12:33 Pulse Oximetry 99 02/18/23 12:33 Oxygen Delivery Method Room Air 02/18/23 12:33 Oxygen Flow Rate 0 02/18/23 12:33 Pain Level 9 02/18/23 12:33
== END 2023-02-18 14:21 | disposition home or self-care (01) ==
PROVIDERS: Emergency Provider Nurse Practitioner Family; PCP Nurse Practitioner Family
DX: T23.231A Burn of second degree of multiple right fingers (nail), not including thumb, initial encounter (principal)
CPT/HCPCS: 12002; 96374; 96375; 99284; J0131; J1885

== ENCOUNTER 2023-04-23 01:13 | Emergency (ER) | payer OTHER, SELFPAY ==
[2023-04-23 01:18] VITALS: BP 159/66; PULSE 105; RESP 18; TEMP 36.6; O2SAT 98
--- NOTE | 2023-04-23 02:19 | W.ED.GENAD ---
HPI General Stated Complaint: Nk/Back Pain Mode of arrival: ambulatory. ALISHA: 4 Date/Time Provider Initiated Documentation: 04/23/23 01:14. Limitations to Documentation: no limitations. Information obtained by: patient. HPI Narrative: 32yo F with hypothyroid presenting with acute mid back pain after lifting injury at work. 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 Pain was initially mild and achey but has been worsening and is now severe, cramping, and radiating around to her left side & ribs. No numbness or tingling in her legs. She is otherwise in her usual state of health. Related Data Home Medications Medication Instructions Recorded Confirmed levothyroxine 200 mcg tablet 225 mcg PO QAM 09/15/12 04/23/23 (Synthroid) diazepam 2 mg tablet (Valium) 2 mg PO TID PRN #10 tabs 04/23/23 Previous Rx's Medication Instructions Recorded diazepam 2 mg tablet (Valium) 2 mg PO TID PRN #10 tabs 04/23/23 Allergies Allergy/AdvReac Type Severity Reaction Status Date / Time hydromorphone [Hydromorphone] Allergy Severe Anaphylaxsi Unverified 04/23/23 01:21 s meperidine Allergy gi upset Unverified 04/23/23 01:21 itching codeine AdvReac Mild Nausea Unverified 04/23/23 01:21 Review of Systems Narrative: see HPI PFSH All Active Problems (Updated 04/23/23 @ 03:24 by Taty Conrad MD) Back strain (Acute) Encounter for screening for other viral diseases (Acute) Asthma (Chronic) Premature delivery (Active 09/15/12) 32-week delivery Medical History (Updated 04/23/23 @ 03:24 by Taty Conrad MD) GERD (gastroesophageal reflux disease) Bipolar disorder History of thyroid cancer Surgical History S/P thyroidectomy Tonsillectomy and adenoidectomy 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 Smoking/Tobacco Use Status: Former Tobacco Use Smoking risk assessment performed?: Yes Alcohol Intake: current Alcohol Intake frequency: a few times a week Drug use: Occasionally Substance use type: marijuana Housing: apartment Do you feel safe at home: Yes Do you feel safe in your relationship?: Yes Exam Narrative Exam Narrative: General: Alert, well appearing, well nourished, moderate distress Head: Normocephalic, atraumatic Neck: Trachea midline, ?Neck supple. Cardiac: ?Tachycardiac,, no murmurs appreciated Resp: No respiratory distress. CTAB. Abd: ?Soft, non-distended, nontender Extremities: ?No deformities.? No peripheral edema. Back: Left mid thoracic, low thoracic, and high lumbar paraspinal tenderness to palpation Neurologic: GCS 15. ? Motor- 5/5 strength symmetric bilateral upper and lower extremities Sensation- ?Intact to light touch and symmetric multiple dermatomes including upper and lower extrmeities Course Vital Signs Vital signs: Vital Signs Temperature 36.6 C 04/23/23 01:18 Pulse 105 H 04/23/23 01:18 Respiratory Rate 18 04/23/23 01:18 Blood Pressure 159/66 H 04/23/23 01:18 Pulse Oximetry 98 04/23/23 01:18 Temperature 36.6 C 04/23/23 01:18 Temperature Source Temporal Artery Scan 04/23/23 01:18 Pulse 105 H 04/23/23 01:18 Respiratory Rate 18 04/23/23 01:18 Respiratory Effort Normal, Non-Labored 04/23/23 01:40 Blood Pressure 159/66 H 04/23/23 01:18 Pulse Oximetry 98 04/23/23 01:18 Pain Level 10 04/23/23 01:18 Medical Decision Making 32yo F with hypothyroid presenting with acute mid back pain after lifting injury at work; was helping a patient transfer when they sat down unexpectedly and she strained the left side of her back. Pain was initially mild and achey but has been worsening and is now severe, cramping, and radiating around to her left side & ribs. No neurologic symptoms. Left mid thoracic to high lumbar paraspinal tenderness on exam, no neurologic deficits, no midline tenderness.. Hypertensive and tachycardiac suspect 2/t pain. History and exam consistent with muscle strain/spasm, low-intensity mechanism of injury, would not pursue XR or CT imaging at this time. Will treat symptomatically with tylenol, toradol, valium. On reassessment patient reports pain much improved though still present. Feels able to manage with this level of discomfort at home. Repeat vital signs improved, less tenderness on exam, able to ambulate independently. Discharged home with short course of valium to followup with PCP. Discharge instructions and return precautions were reviewed with patient who verbalized understanding. All questions were answered and she is in full agreement with the plan. Quality:SDOH Health Related Social Needs: No Data to Display Discharge Plan Disposition Patient Disposition: Home Condition: Good Discharge Details Clinical Impression: Back strain Primary Care Provider: Valencia Adhikari ED Provider: Taty Conrad Home Meds and New Rx's Prescriptions: New diazepam [Valium] 2 mg tablet 2 mg PO TID PRNQty: 10 0RF No Action levothyroxine [Synthroid] 200 MCG tablet 225 mcg PO QAM Discharge Instructions Instructions: Back Pain (ED) Additional Instructions: Take tylenol & ibuprofen over the counter for pain, follow the directions on the bottle. Valium up to three times a day if necessary for pain and muscle spasm. This will make you very sleepy. Do not drive, swim, operate machinery, or engage in any high risk activities while you are taking this medication. Call your primary care doctor today to schedule an appointment to be seen with the next 72 hours to followup on your visit here. Return to the emergency department for new or worsening symptoms including numbness or weakness in your legs or arms, uncontrolled pain, inability to walk, or if you have any other concerns. Stand Alone Forms: Work Release Referrals: Valencia Adhikari [Primary Care Provider] - Discharge Data Discharge Date/Time-TO BE ENTERED AT DEPARTURE: 04/23/23 03:35
[2023-04-23 02:30] VITALS: BP 118/64; PULSE 64; RESP 16; O2SAT 99
[2023-04-23] MEDS: Acetaminophen 500 MG TAB PO (02:38)
[2023-04-23] MEDS: Ketorolac 15 MG/ML VIAL IM (02:38)
[2023-04-23] MEDS: diazePAM 10 MG/2 ML SYR 5 MG IM (02:39)
[2023-04-23] MEDS: Lidocaine 5% Patch 2 PATCH TP (03:00)
== END 2023-04-23 03:35 | disposition home or self-care (01) ==
PROVIDERS: Emergency Provider Student in an Organized Health Care Education/Training Program; PCP Nurse Practitioner Family
DX: S39.012A Strain of muscle, fascia and tendon of lower back, initial encounter (principal); Y93.F2 Activity, caregiving, lifting
CPT/HCPCS: 96372; 99283; J1885; J3360

== ENCOUNTER 2023-06-27 14:46 | Outpatient (REF) | payer MEDICAID, SELFPAY ==
[2023-06-27 15:07] LABS: TSH 4.96 uIU/Ml (0.36-3.74)
== END 2023-06-27 14:47 | disposition home or self-care (01) ==
LOC: NCHCN 14:46
PROVIDERS: PCP Nurse Practitioner Family; Referring Provider Family Medicine; Visit Provider Family Medicine
DX: E03.9 Hypothyroidism, unspecified (principal)
CPT/HCPCS: 84443

== ENCOUNTER 2023-08-01 09:07 | Emergency (ER) | payer MEDICAID, SELFPAY ==
[2023-08-01 09:15] VITALS: BP 112/79; PULSE 92; RESP 20; TEMP 36.9; O2SAT 99
--- NOTE | 2023-08-01 09:30 | DI.US_ITS ---
Exam(s) US PELVIS TRANSVAGINAL EXAM: US PELVIS TRANSVAGINAL CLINICAL HISTORY: R sided abd pain x 30 min, r/o ectopic TECHNIQUE: Transabdominal and transvaginal imaging was performed using standard protocol. COMPARISON: US PELVIS ULTRASOUND from 06/30/2009 FINDINGS: The transabdominal images are limited by lack of bladder distension and patient body habitus. UTERUS: Mildly retroverted. 7.2 x 4.6 x 5.4 cm Endometrium: 10 mm . No evidence of intrauterine gestational sac. Myometrium: Unremarkable. Cervix: Unremarkable. OVARIES: Right: Cyst or mass: Right para ovarian cyst measuring 2.3 x 1.6 x 1.7 cm. A similar finding was seen on the 2010 exam. Left: Cyst or mass: 2.1 centimeter follicle. DOPPLER: Color: Symmetric and uniform flow to both ovaries. No hyperemia. CUL-DE-SAC: Free fluid: None. IMPRESSION: 1. Normal-appearing uterus with endometrial stripe within normal limits. No evidence of intrauterine or ectopic . 2. Right para ovarian cyst measuring 2.3 cm. Not significantly changed from 2010. DATA REPOSITORY:
--- NOTE | 2023-08-01 09:40 | W.ED.GENAD ---
Discharge Plan Disposition Patient Disposition: Home Discharge Details Clinical Impression: Abdominal pain Primary Care Provider: Valencia Adhikari ED Provider: Ada Timmons Home Meds and New Rx's Prescriptions: Continued levothyroxine [Synthroid] 200 MCG tablet 225 mcg PO QAM Discharge Instructions Instructions: Abdominal Pain (ED) Additional Instructions: Please call your primary care provider to schedule a follow up appointment in the next week or two. It may be helpful to follow-up with your RADIO ENGINEER as well. Yes Your ultrasound and blood work was negative for . Return to emergency care for develop new concerning abdominal pain, uncontrollable vomiting, blood in stool or vomit, or if you are very worried and need to be rechecked again immediately. Referrals: Richard Rasheed MD [MD [facility] STAFF PHYSICIAN] - HPI General Date/Time Provider Initiated Documentation: 08/01/23 09:36. HPI Narrative: Paco is a 33 year old female [id number] who presents to the emergency department today for evaluation of sudden onset of right-sided abdominal pain approximately 30 minutes before arrival. She reports pain is rated 7 out of 10, described as a continuous strong dull pain. She did vomit once this morning, but says that this was not related to the discomfort. Says she has otherwise been feeling well. LMP 06/14/2023. 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 No history of gynecologic or abdominal surgeries. She does have a history of Obinna's thyroiditis for which she takes Synthroid and IBS. Denies recent fever/chills, URI symptoms, change in bowel or bladder function, black/tarry stools, vaginal bleeding or discharge. Denies history of STIs. She did have some mild spotting approximately 1 week ago which had since resolved. Her last was managed by [facility] due to high risk with Obinna's. Related Data Home Medications Medication Instructions Recorded Confirmed levothyroxine 200 mcg tablet 225 mcg PO QAM 09/15/12 08/01/23 (Synthroid) Allergies Allergy/AdvReac Type Severity Reaction Status Date / Time hydromorphone [Hydromorphone] Allergy Severe Anaphylaxsi Unverified 08/01/23 09:17 s meperidine Allergy gi upset Unverified 08/01/23 09:17 itching codeine AdvReac Mild Nausea Unverified 08/01/23 09:17 General Stated Complaint: SEATING AND MOBILITY TECHNOLOGIST ALISHA: 3 Review of Systems Narrative: see HPI Exam Const General: cooperative, healthy appearing and other (appears uncomfortable) Nutritional Appearance: average body habitus Resp Effort & Inspection: normal respiratory effort and able to speak in complete sentences Auscultation: clear to auscultation bilaterally Cardio Rate: regular rate Rhythm: regular rhythm GI Inspection: normal to inspection Palpation: not firm, no guarding, no masses and tender (R abdomen) Auscultation: normal bowel sounds Course Vital Signs Vital signs: Vital Signs Temperature 36.9 C 08/01/23 09:15 Pulse 92 H 08/01/23 09:15 Respiratory Rate 20 08/01/23 09:15 Blood Pressure 112/79 08/01/23 09:15 Pulse Oximetry 99 08/01/23 09:15 Temperature 36.9 C 08/01/23 09:15 Temperature Source Oral 08/01/23 09:15 Pulse 92 H 08/01/23 09:15 Respiratory Rate 20 08/01/23 09:15 Blood Pressure 112/79 08/01/23 09:15 Blood Pressure Position Sitting 08/01/23 09:15 Pulse Oximetry 99 08/01/23 09:15 Oxygen Delivery Method Room Air 08/01/23 09:15 Oxygen Flow Rate 0 08/01/23 09:15 Pain Level 8 08/01/23 09:15 Medical Decision Making Paco is a 33 year old female [id number] who presents to the emergency department today for evaluation of sudden onset of right-sided abdominal pain approximately 30 minutes before arrival. She reports pain is rated 7 out of 10, described as a continuous strong dull pain. She did vomit once this morning, but says that this was not related to the discomfort. Says she has otherwise been feeling well. LMP 06/14/2023. 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 No history of gynecologic or abdominal surgeries. She does have a history of Obinna's thyroiditis for which she takes Synthroid and IBS. Denies recent fever/chills, URI symptoms, change in bowel or bladder function, black/tarry stools, vaginal bleeding or discharge. Denies history of STIs. She did have some mild spotting approximately 1 week ago which had since resolved. Her last was managed by [facility] due to high risk with Obinna's. Last BM yesterday, normal. Physical exam remarkable for visibly uncomfortable patient. She does appear uncomfortable when she lays back on the stretcher. Significant tenderness to palpation to right side, no rebound tenderness, abdominal rigidity/guarding. Normoactive bowel sounds. Easy work of breathing, lung sounds clear bilaterally. Normal heart sounds. DDx includes was not limited to ectopic , diverticulitis/colitis, ovarian cyst/torsion, pancreatitis less likely I independently interpreted the following tests: CBC, CMP, and lipase reassuring. hCG negative Pelvic US reassuring. No evidence of intrauterine gestational sac or ectopic While in the emergency department Andree reported improvement in abdominal pain. She received Toradol for pain management. Unclear etiology of abdominal pain. Workup today overall reassuring, especially with improvement of pain since arrival to the emergency department. No red flags indicating need for emergent CT scan at this time. Reviewed discharge instructions with patient, including use of Tylenol/ibuprofen for discomfort, importance of follow-up with PCP, and red flags indicating need for return to emergency care. Imaging Data Radiologic Study: Radiologist's impression: Exam(s) US PELVIS TRANSVAGINAL EXAM: US PELVIS TRANSVAGINAL CLINICAL HISTORY: R sided abd pain x 30 min, r/o ectopic TECHNIQUE: Transabdominal and transvaginal imaging was performed using standard protocol. COMPARISON: US PELVIS ULTRASOUND from 06/30/2009 FINDINGS: The transabdominal images are limited by lack of bladder distension and patient body habitus. UTERUS: Mildly retroverted. 7.2 x 4.6 x 5.4 cm Endometrium: 10 mm . No evidence of intrauterine gestational sac. Myometrium: Unremarkable. Cervix: Unremarkable. OVARIES: Right: Cyst or mass: Right para ovarian cyst measuring 2.3 x 1.6 x 1.7 cm. A similar finding was seen on the 2010 exam. Left: Cyst or mass: 2.1 centimeter follicle. DOPPLER: Color: Symmetric and uniform flow to both ovaries. No hyperemia. CUL-DE-SAC: Free fluid: None. IMPRESSION: 1. Normal-appearing uterus with endometrial stripe within normal limits. No evidence of intrauterine or ectopic . 2. Right para ovarian cyst measuring 2.3 cm. Not significantly changed from 2009. Quality:SDOH Health Related Social Needs: No Data to Display PFSH All Active Problems (Updated 08/01/23 @ 11:08 by Ada Johnson) Abdominal pain (Acute) Encounter for screening for other viral diseases (Acute) Asthma (Chronic) Premature delivery (Active 09/15/12) 32-week delivery Medical History (Updated 08/01/23 @ 11:08 by Ada Johnson) GERD (gastroesophageal reflux disease) Bipolar disorder History of thyroid cancer Surgical History S/P thyroidectomy Tonsillectomy and adenoidectomy 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 Smoking/Tobacco Use Status: Former Tobacco Use Smoking risk assessment performed?: Yes Alcohol Intake: current Alcohol Intake frequency: a few times a week Drug use: Occasionally Substance use type: marijuana Housing: apartment Do you feel safe at home: Yes Do you feel safe in your relationship?: Yes
[2023-08-01 09:45] LABS: HCT 40.8 % (36.0-46.0); HGB 13.7 g/dL (11.2-15.7); MCH 33.7 pg (27.0-33.0); MCHC 33.6 % (32.0-36.0); MCV 101 fL (80-95); MPV 10.9 fL (8.0-11.0); Platelet Count 220 10^3/uL (130-400); RBC 4.06 10^6/uL (3.93-5.22); RDW 12.7 % (11.7-14.6); RDW-SD 47.2 fL; WBC 8.53 10^3/uL (4.4-10.8)
[2023-08-01 10:01] LABS: ALT 19 U/L (14-59); AST 9 U/L (15-37); Albumin 3.7 g/dL (3.4-5.0); Alkaline Phosphatase 62 U/L (46-116); Anion Gap 9.2 mmol/L (3-11); BUN 9 mg/dL (7-18); Bilirubin, Total 0.5 mg/dL (0.2-1.0); CO2 25.8 mmol/L (21.0-32.0); CREATININE 0.7 mg/dL (0.55-1.02); Calcium 8.5 mg/dL (8.5-10.1); Chloride 105 mmol/L (98-107); Estimated GFR 117.77 (mL/min/1.73m2); Glucose 100 mg/dL (74-106); Lipase 33 U/L (16-77); Potassium 4.4 mmol/L (3.5-5.1); Sodium 140 mmol/L (136-145)
[2023-08-01 10:24] VITALS: BP 109/65; PULSE 84; O2SAT 100
[2023-08-01] MEDS: Ketorolac 15 MG/ML VIAL IVP (11:08)
[2023-08-01 11:15] VITALS: BP 115/88; PULSE 85; RESP 18; O2SAT 98
[2023-08-01 11:39] LABS: HCG Qual (Serum) Negative
== END 2023-08-01 11:22 | disposition home or self-care (01) ==
PROVIDERS: Emergency Provider Nurse Practitioner Family; PCP Nurse Practitioner Family
DX: R10.9 Unspecified abdominal pain (principal); E06.3 Autoimmune thyroiditis; Z79.899 Other long term (current) drug therapy; N83.201 Unspecified ovarian cyst, right side
CPT/HCPCS: 80053; 83690; 85027; 86850; 86900; 86901; 96374; 99284; 76830; 76856; 81003; 84702; 84703; J1885

== ENCOUNTER 2023-08-28 12:07 | Emergency (ER) | payer MEDICAID, SELFPAY ==
[2023-08-28 12:28] VITALS: BP 115/60; PULSE 129; RESP 18; TEMP 37; O2SAT 99
--- NOTE | 2023-08-28 13:00 | DI.RAD_ITS ---
Exam(s) XR HAND LT COMPLETE EXAM: XR HAND LT COMPLETE CLINICAL HISTORY: Cut glass, R/O Foreign body. TECHNIQUE: 2D digital imaging was performed. COMPARISON: CR,XR XR HAND RT COMPLETE from 03/26/2019 FINDINGS: 3 views No evidence of acute fracture or dislocation. No radiopaque foreign body. No osseous lesions nor er osions. Bone density normal. IMPRESSION: No acute osseous findings. No radiopaque foreign body. DATA REPOSITORY: RADIATION DOSE DELIVERED:
--- NOTE | 2023-08-28 13:49 | ED.GENADUL_ITS ---
Discharge Plan Disposition Patient Disposition: Home Condition: Stable Discharge Details Clinical Impression: Hand laceration Primary Care Provider: Valencia Adhikari ED Provider: Shannon Wallis Home Meds and New Rx's Prescriptions: No Action levothyroxine [Synthroid] 200 MCG tablet 225 mcg PO QAM Discharge Instructions Instructions: Laceration (ED) Additional Instructions: Have sutures removed in 7 to 10 days. Keep clean and dry. No soaking. You may wash under running soap and water in the next 24 hours. Allow to air dry 1 to 2 hours a day. Return to the ER for any signs of infection including red streaks increased redness or drainage. Please take Tylenol or Ibuprofen with food every 4-6 hours as needed for pain and swelling. Referrals: Valencia Adhikari [Primary Care Provider] - 5 days Discharge Data Discharge Date/Time-TO BE ENTERED AT DEPARTURE: 08/28/23 14:52 HPI General Date/Time Provider Initiated Documentation: 08/28/23 12:25 . Limitations to Documentation: no limitations . Information obtained by: patient, RN notes reviewed and old records reviewed . 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 Patient dropped a glass coffee cup and accidentally got stabbed by corner of mug, Distal CMS intact, full ROM. given Tylenol upon arrival. Related Data Home Medications Medication Instructions Recorded Confirmed levothyroxine 200 mcg tablet 225 mcg PO QAM 09/15/12 08/28/23 (Synthroid) Allergies Allergy/AdvReac Type Severity Reaction Status Date / Time hydromorphone [Hydromorphone] Allergy Severe Anaphylaxsi Unverified 08/28/23 12:28 s meperidine Allergy gi upset Unverified 08/28/23 12:28 itching codeine AdvReac Mild Nausea Unverified 08/28/23 12:28 General Stated Complaint: Laceration ALISHA: 4 Review of Systems All systems reviewed & are unremarkable except as noted in HPI and below Exam Extrem Left upper extremity: hand Details: laceration dorsal hand Details: linear, actively bleeding and involving subcutaneous tissue; no pulsatile bleeding and no foreign body present Hand/finger images: 2 1. Approximately 0.5 cm laceration noted to the dorsum of the left hand, partial-thickness linear. Course Vital Signs Vital signs: Vital Signs Temperature 37.0 C 08/28/23 12:28 Pulse 129 H 08/28/23 12:28 Respiratory Rate 18 08/28/23 12:28 Blood Pressure 115/60 08/28/23 12:28 Pulse Oximetry 99 08/28/23 12:28 Temperature 37.0 C 08/28/23 12:28 Temperature Source Temporal Artery Scan 08/28/23 12:28 Pulse 129 H 08/28/23 12:28 Respiratory Rate 18 08/28/23 12:28 Blood Pressure 115/60 08/28/23 12:28 Blood Pressure Position Sitting 08/28/23 12:28 Pulse Oximetry 99 08/28/23 12:28 Oxygen Delivery Method Room Air 08/28/23 12:28 Oxygen Flow Rate 0 08/28/23 12:28 Pain Level 9 08/28/23 12:28 Procedures Laceration Laceration 1: Site: hand (left) Side (If applicable): left Size (cm): 1 Description: linear Depth: simple, single layer Local Anesthetic: Lidocaine 1% and with Epi Amount of anesthesia used (mL): 3 Pre-repair: wound explored, irrigated extensively and deep structures intact Skin layer closed with: nylon Size (cm): 4-0 Number of sutures: 2 Technique: simple, interrupted Medical Decision Making 33 year old female presents with left dorsal hand 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 Patient dropped a glass coffee cup and accidentally got stabbed by corner of mug, Distal CMS intact, full ROM. given Tylenol upon arrival. Let applied by ED staff, x-ray of left hand ordered to rule out foreign body due to glass causing laceration. 1349: Patient is not in the room, assumed elopement. 1406: Patient returned to room, wound cleaned by ED staff. 1415: Wound anesthetized with 1% lidocaine with epi, patient tolerated with some difficulty. X-ray shows no foreign body no acute osseous findings. Please see procedure note, laceration anesthetized, cleaned with chlorhexidine scrub, patient tolerated well. Wound approximated with number 2 4 point 0 Ethilon simple interrupted sutures. Discussed home care suture removal time and return instructions patient verbalized understanding. Patient discharged with instructions to home. This text was generated using [employer] system, please disregard any oddities of phrase or misspellings. Quality:SDOH Health Related Social Needs: 2 No Data to Display PFSH All Active Problems (Updated 08/28/23 @ 14:41 by Shannon Wallis NP) Hand laceration (Acute) Abdominal pain (Acute) Encounter for screening for other viral diseases (Acute) Asthma (Chronic) Premature delivery (Active 09/15/12) 32-week delivery Medical History (Updated 08/28/23 @ 14:41 by Shannon Wallis NP) GERD (gastroesophageal reflux disease) Bipolar disorder History of thyroid cancer Surgical History S/P thyroidectomy Tonsillectomy and adenoidectomy 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 Smoking/Tobacco Use Status: Former Tobacco Use Smoking risk assessment performed?: Yes Alcohol Intake: current Alcohol Intake frequency: a few times a week Drug use: Occasionally Substance use type: marijuana Housing: apartment Do you feel safe at home: Yes Do you feel safe in your relationship?: Yes
[2023-08-28] MEDS: Lidocaine/Epinephri/Tetracaine Topical Gel 3 ML (14:33)
[2023-08-28] MEDS: Acetaminophen 500 MG TAB PO (14:33)
[2023-08-28 14:48] VITALS: BP 115/60; PULSE 88; RESP 18; TEMP 37; O2SAT 99
== END 2023-08-28 14:52 | disposition home or self-care (01) ==
PROVIDERS: Emergency Provider Registered Nurse Emergency; PCP Nurse Practitioner Family
DX: S61.412A Laceration without foreign body of left hand, initial encounter (principal); M79.642 Pain in left hand; W25.XXXA Contact with sharp glass, initial encounter
CPT/HCPCS: 12001; 99283; 73130

== ENCOUNTER 2023-10-06 12:58 | Outpatient (REF) | payer MEDICAID, SELFPAY ==
[2023-10-06 16:29] LABS: HCG Quant, Pregnancy 156 mIU/mL (1-3)
== END 2023-10-06 12:59 | disposition home or self-care (01) ==
LOC: LBN 12:58
PROVIDERS: PCP Nurse Practitioner Family; Visit Provider Physician Assistant Medical
DX: Z32.01 Encounter for pregnancy test, result positive (principal)
CPT/HCPCS: 84702

== ENCOUNTER 2023-10-29 03:56 | Outpatient (CLI) | payer MEDICAID, SELFPAY ==
--- OUTSIDE RECORDS SUMMARY | 2023-10-29 03:58 | XMS_ITS | Encounter Summary ---
Author Organization [facility] [place] [address] Care Team Providers Care Electric Motor Winders Assembler Name Role Phone OnofreMarilynValencia H BERLIN Primary Care Provider [phone] Encounter Details Date Type Department Care Team (Late st Contact Info) Description 12/13/2021 Telephone [place] [address] Peg Cast 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 Tobacco Use Types Packs/Day Years Used Date Smoking Tobacco: Every Day Cigarettes 0.5 4 Smokeless Tobacco: Never Alcohol Use Standard Drinks/Week Comments Yes 0 (1 standard drink = 0.6 oz pur e alcohol) socially Sex and Gender Information Value Date Recorded Sex Assigned at Female 10/12/2023 9:44 AM EDT Gender Identity Female 10/12/2023 9:44 AM EDT Sexual Orientation Straight 10/12/2023 9: 44 AM EDT documented as of this encounter Miscellaneous Notes * Telephone Encounter - Peg Cast - 12/13/2021 1:03 PM EDT 3rd call was made 12/07. I closed case/referral and sent ltr. documented in this encounter Plan of Treatment Upcoming Encounters Date Type Department Care Team (Late st Contact Info) Description 05/23/2024 [place] [address] Maite Malloy MD [facility] [address] OBSTETRICS [place] [address] documented as of this encounter Visit Diagnoses Not on filedocumented in this encounter Care Teams Electric Motor Winders Assembler Relationship Specialty Start Date End Date Valencia Adhikari APRN [address] [place] [address] PCP - General 04/21/14 07/04/23 documented as of this encounter
--- OUTSIDE RECORDS SUMMARY | 2023-10-29 03:58 | XMS_ITS | Encounter Summary ---
Author Organization [facility] Address [facility] [place] [address] Care Team Providers Care Finished Goods Inspector Name Role Phone Valencia Adhikari APRN Primary Care Provider [phone] Encounter Details Date Type Department Care Team (Late st Contact Info) Description 10/03/2021 Notes Only Psychiatry [place] [id number] Crispin Fuller MD [facility] [place] [address] 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 Tobacco Use Types Packs/Day Years [...] AM EDT documented as of this encounter Progress Notes * Crispin Fuller MD - 10/03/2021 11:03 AM EDT Termination/Transfer note Treatment termination/transfer date: 10/08/2021 Diagnosis: Borderline personality disorder Brief formulation/assessment of patient: Andree endorses a long history of rapid cycling moods and anxiety that has been exacerbated with the COVID pandemic and various psychosocial stressors. She further endorses a history of depressive symptoms with low energy, low motivation, anhedonia, and sleep disturbance often precipitated by stressors. Andree's rapid cycling moods and difficulties with emotional regulation and distress tolerance are concerning for underlying personality disorder. She recently had an unintentional opiate overdose which is concerning for underlying opiate use disorder. Current medications: Current Outpatient Medications Medication Sig Dispense Refill ??? venlafaxine (EFFEXOR-XR) 150 mg Capsule, Sust. Release 24 hr Take 1 capsule by mouth daily. 30 capsule 2 ??? mirtazapine (Remeron) 15 mg Tablet Take 1 tablet by mouth nightly. 30 tablet 1 ??? ergocalciferoL, vitamin D2, (vitamin D) 50,000 unit Capsule Take 1 capsule by mouth once a week. 13 capsule 4 ??? cyanocobalamin, vitamin B-12, 500 mcg Tablet Take 1 tablet by mouth daily. 100 tablet 3 ??? ferrous sulfate 324 mg (65 mg iron) Tablet, Delayed Release (E.C.) Take 1 tablet by mouth everyevening. 100 tablet 0 ??? celecoxib (CELEBREX) 200 mg Capsule Take 1 capsule by mouth daily. (Patient not taking: No sig reported) 30 capsule 1 ??? levothyroxine (SYNTHROID) 200 mcg Tablet take 1 tablet by mouth once daily 0 No current facility-administered medications for this visit. Prior medication trials (dose, efficacy, side effects, adequacy of trial): SSRIs:??Zoloft, prozac- I don't remember if they were helpful, tried in high school, Trazodone- just made me sleepy Gabapentin Hydroxyzine-didn't do anything Buspar Ativan-helpful Allergies: Allergies as of 10/03/2021 - Review Complete 07/14/2021 Allergen Reaction Noted ??? Demerol [meperidine] Anaphylaxis 04/25/2012 ??? Dilaudid [hydromorphone (bulk)] Hives 03/22/2011 ??? Codeine Nausea And Vomiting 12/31/2019 Brief treatment Summary: Andree re-engaged with our clinic with a goal of restarting meds after self discontinuing all of her psych medications during a difficult relationship. When the relationship ended she expressed a desire to restart medications. Her PCP had restarted her mirtazapine and effexor which we have continued. Lamotrogine was discontinued due to concerns about medication non-compliance and ativan was not restarted. During our treatment course Andree expressed frustration about not restarting ativan for anxiety, however we developed a goal of addressing anxiety through psychotherapy. She has engaged in therapy with Lisa Dickens. Initially saw some improvements with this, but rec ently suffered an unintentional opiate overdose which she reported she obtained off the street to help manage pain and is dealing with legal implications of this event. In this context has had an exacerbation of mood symptoms. Continues to work through this with therapist and we have since increased effexor to 150mg daily. Notable Treatment Events: -Restarted effexor and mirtazapine s/p self discontinuing all psych meds. Discontinued lamotrogine and ativan. -Requested to restart ativan, but encouraged use of psychotherapy as an alternative to build copingskills. -Continues in psychotherapy -Recent unintentional overdose on opiates with exacerbation of mood symptoms. Possible Future Considerations: -Continue to monitor substance use and offer resources as needed. -Would avoid benzodiazepines given history opiate use -Continue to optimize current medications (effexor and mirtazapine) -Encourage regular follow-up for CBT/DBT to build coping skills Clinician responsible for ongoing care: Follow-up in [facility] resident clinic documented in this encounter Plan of Treatment Upcoming Encounters Date Type Department Care Team (Late st Contact Info) Description 05/23/2024 [place] [address] Maite Malloy MD [facility] OBSTETRICS AND [place] [address] documented as of this encounter Visit Diagnoses Not on filedocumented in this encounter Care Teams Finished Goods Inspector Relationship Specialty Start Date End Date Valencia Adhikari APRN [address] [place] [address] PCP - General 04/21/14 07/04/23 documented as of this encounter
--- OUTSIDE RECORDS SUMMARY | 2023-10-29 03:58 | XMS_ITS | Encounter Summary ---
Author Organization [facility] [place] [address] Care Team Providers Care Consolidator Name Role Phone OnofreMarilyn pittshrryan Barton BERLIN Primary Care Provider [phone] Encounter Details Date Type Department Care Team (Latest Contact Info) Description 08/01/2022 11:00 AM EDT TH Visit (TeleHealth) [place] [phone] Shelli Kearns MD [facility] [address] [place] [address] PATIENT NOT SEEN 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 Tobacco Use Types Packs/Day Years [...] as of this encounter Progress Notes * Shelli Kearns MD - 08/01/2022 11:00 AM EDT This patient was not seen in this encounter. documented in this encounter Plan of Treatment Upcoming Encounters Date Type Department Care Team (Late Contact Info) Description 05/23/2024 [place] [address] Maite Malloy MD [facility] OBSTETRICS [place] [address] documented as of this encounter Visit Diagnoses Diagnosis DH PATIENT NOT SEEN documented in this encounter Care Teams Consolidator Relationship Specialty Start Date End Date Valencia Adhikari APRN [address] [place] [address] PCP - General 04/21/14 07/04/23 documented as of this encounter
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
--- OUTSIDE RECORDS SUMMARY | 2023-10-29 03:58 | XMS_ITS | Encounter Summary ---
Author Organization [facility] Address [facility] [place] [address] Care Team Providers Care Beef Pluck Trimmer Name Role Phone Richard Rasheed MD Primary Care Provider [phone] Encounter Details Date Type Department Care Team (Late Contact Info) Description 08/13/2023 Telephone Obstetrics [place] [address] Sarah Tejeda 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 Tobacco Use Types Packs/Day Years Used Date Smoking Tobacco: Every Day Cigarettes 0.5 4 Smokeless Tobacco: Never Alcohol Use Standard Drinks/Week Comments Yes 0 (1 standard drink = 0.6 oz pur e alcohol) socially Comments Yes Sex and Gender Information Value Date Recorded Sex Assigned at Female 10/12/2023 9:44 AM EDT Gender Identity Female 10/12/2023 9:44 AM EDT Sexual Orientation Straight 10/12/2023 9: 44 AM EDT documented as of this encounter Plan of Treatment Upcoming Encounters Date Type Department Care Team (Late st Contact Info) Description 05/23/2024 [place] [phone] Maite Malloy MD [facility] DR OBSTETRICS [place] [address] documented as of this encounter Visit Diagnoses Not on filedocumented in this encounter Care Teams Beef Pluck Trimmer Relationship Specialty Start Date End Date Richard Rasheed MD [address] [place], [place] [id number] PCP - General Family Medicine 07/05/23 documented as of this encounter
--- OUTSIDE RECORDS SUMMARY | 2023-10-29 03:58 | XMS_ITS | Encounter Summary ---
Author Organization [facility] [place] [address] Care Team Providers Care Trimmer Sorter Name Role Phone Valencia Adhikari APRN Primary Care Provider [phone] Encounter Details Date Type Department Care Team (Late st Contact Info) Description 04/13/2023 Telephone Obstetrics [place] [phone] Jody Wood RN 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 Tobacco Use Types Packs/Day Years [...] encounter Miscellaneous Notes * Telephone Encounter - Jody Wood RN - 04/13/2023 1:28 PM EST Andree Godoy Estephanie GA 4w, 5d based on LMP of 03/11 MFM patient Reason for call: Spotting and cramping Andree reports that she is experiencing brown to red vaginal spotting. This started this morning. She reports that she only noticed this when she wipes after using the bathroom. She describes the amount as about the size of a nickel each time. She has experienced this about 4x so far today. Andree is also reporting cramping on her left side. She is initially unsure of how to rate this on the pain scale but reports it as a 2/10. She states that she is able to continue her normal day but has mild pain on that left side. She does not have a hx of ectopic pregnancies. Patient DOES MEET First Trimester Bleeding Per Protocol criteria ( Protocol #42254) meets criteria: Patient is less than 7 weeks . The following orders were placed, per protocol: Serial HCGQ 48 hours apart and blood type/antibody screen. The patient is aware that HCGQ levels will determine further care. The patient was given the following instructions: Patient counseled on risk of miscarriage and ectopic . Patient educated to call office back or present urgently for evaluation of excessive bleeding and/or new onset/worsening moderate to severe pain. Patient completes teach back of these precautions. Patient requesting to have these labs drawn at [facility]. Will ssend these electronically. * Telephone Encounter - Jody Wood RN - 04/13/2023 1:28 PM EST ----- Message from Corine Alexander sent at 04/13/2023 1:00 PM EST ----- Regarding: spotting Caller's name: Andree Mcdonald Call back #: [phone] Patient's provider/team: EVANGELISTA 05/09 Reason for call: Slight spotting? documented in this encounter Plan of Treatment Upcoming Encounters Date Type Department Care Team (Late st Contact Info) Description 05/23/2024 [facility] [place] [phone] Maite Malloy MD [facility] DR OBSTETRICS [place] [address] documented as of this encounter Visit Diagnoses Not on filedocumented in this encounter Care Teams Trimmer Sorter Relationship Specialty Start Date End Date Valencai Adhikari APRN [address] [place] [address] PCP - General 04/21/14 07/04/23 documented as of this encounter
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
--- OUTSIDE RECORDS SUMMARY | 2023-10-29 03:58 | XMS_ITS | Encounter Summary ---
Author Organization [facility] [place] [address] Care Team Providers Care Manufacturing Leader Name Role Phone Valencia Adhikari APRN Primary Care Provider [phone] Encounter Details Date Type Department Care Team (Latest Contact Info) Description 11/17/2021 8:00 AM EDT TH Visit (TeleHealth) Psychiatry [place] [phone] Lisa Dickens, PhD Unspecified mood (affective) disorder; [...] Progress Notes * Lisa Dickens, PhD - 11/17/2021 8:00 AM EDT INDIVIDUAL THERAPY PROGRESS NOTE CPT CODES 47640, 33754, 63241 LOCATION: Telehealth. Andree Hummel gave permission for and was seen for today's appointment with a Telehealth visit. During this visit she was located at her home in [place], [place]. Andree WallisVishalTamara is aware that for any urgent matter she can call [phone]. 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 [employer], pay is good but due to the changeover in employers, she hasn't had a paycheck in several weeks and costs have increased -son is returning to school in 2 weeks, will make some things easier (sleeping during the day afteran overnight shift) but other things harder (not having as much time together on her days off) -trip to [place] with family was okay, took about four days for me to lose it, trigger was sistertelling everyone to pick out hand their hair since their aunt had left hair in the drain, upsetting for Andree as she is already losing hair and feels upset about it, when she teared up and walked away shewas told, God, she's so dramatic, everyone could tell that she and her sister do not get along CENTRAL THEME OF SESSION: Resetting goals and treatment planning. IN-SESSION PROCEDURES: I asked about Andree's well-being and experiences over the past two months. I suggested that we revisit our treatment goals and plan given the break in sessions and encouraged Andree to think about the long-term goals and values she has identified as well as thinking about the challenges and barriers she experiences. She asked to return in two weeks with goals and to end the session early due to her headache, I agreed. CLINICAL FINDINGS: PROGRESS FROM BASELINE: improved from pre-treatment PROGRESS FROM LAST SESSION:improved from last session Patient-reported Psychiatry Follow-up scores and responses: [...] Scale Much improved MENTAL STATUS EXAM: AFFECT: Appropriate. BEHAVIOR: WNL COGNITION: Cognition grossly intact. THOUGHT CONTENT: no suicidal or homicidal ideation expressed ASSESSMENT/OBSERVATIONS: Andree arrived several minutes late to the appointment and was unaccompanied. She was casually dressed and adequately groomed. Andree reported having a woken up with a headache and she had a hoodie on, partially covering her eyes and appeared to be in some discomfort. Speech was normal in rate, rhythm, volume, and tone and was linear and goal-directed. Mood was okay andaffect was predominantly euthymic. She was oriented to person, place and time. Insight and judgmentwere good. There were no hallucinations in any sensory modality. No delusions were elicited PLAN: Andree will attend bi-weekly individual DBT therapy to develop mindfulness, increase emotion regulation, build distress tolerance, and become interpersonally effective. Revised goals or interventions: No changes made this session. ?? Safety Risk Management: Standard safety evaluation was conducted in the initial session. Andree indicated that she experiences intermittent passive SI (every few weeks thoughts like wish I didn't have to deal with this). She has no recent plans and no intent to engage in suicidal behavior or attempts. In our initial session in June 2020, patient stated that she had attempted suicide 3x in [employer], around the age of 18. At that time, she overdosed on her medications. She denied any hospitalizations following these attempts. Andree reported that she had not made an attempt since that time, though she did endorse ongoing suicidal ideation. She described thoughts (I am worthless and Ishouldn't be here) along with a plan (taking a whole bottle of her medication), but denied having any intent to harm herself. Andree stated, I would never do that to my son. He deserves better, I can be better. She noted that she had called the crisis line a few times over the past few months when she was struggling, to show that she is willing to seek help. Andree does not have access to a gun. ?? Andree is at an increased risk for suicide [...] is not an imminent risk. We discussed safety plans and I reminded patient of the crisis text line and national hotline number. Homework: Andree will come to the next session with her goals for therapy. Next Appointment: 12/01/2021 For mental health emergencies, call 988 from anywhere in the [facility]. State specific information for [place] and [place] crisis services are as follows and should be used to access local resources: [facility] Mental Health Crises Services [facility] Crisis Line text or call Visit www.fastDove for further information [place] Call your local [facility] crisis line at: [place]: [facility] [phone] [place]: [facility] Services [phone] [place]: [facility] [phone] [place]: [facility] [phone] [place]: [facility] [phone] [place]alyan doris Te[place]: [facility] Counseling and Support [phone] [place]: [facility] Mental Health [phone] on weekdays 8AM-4:30PM and [phone] on nights and weekends [place]: [facility] [place]: [facility] [phone] [place]: [facility] Services [phone] [place]: [facility] Services, [place]: [facility] [place]: HCRS or Text [place] to [phone] For further information for [place] residents: [email or web address]/services/emergency-services/gxd-awt-ddri National Suicide Prevention Hotline: For patients cared for in the Department of Psychiatry, you can reach your mental health clinician at [phone]. Lisa Dickens, PhD documented in this encounter Plan of Treatment Upcoming Encounters Date Type Department Care Team (Late st Contact Info) Description 05/23/2024 [place] [address] Maite Malloy MD [facility] DR OBSTETRICS [place] [address] documented as of this encounter Visit Diagnoses Diagnosis Unspecified mood (affective) disorder Borderline personality disorder documented in this encounter Care Teams Manufacturing Leader Relationship Specialty Start Date End Date Valencia Adhikari APRN [address] [place] [address] PCP - General 04/21/14 07/04/23 documented as of this encounter
--- OUTSIDE RECORDS SUMMARY | 2023-10-29 03:58 | XMS_ITS | Encounter Summary ---
Author Organization [facility] [place] [address] Care Team Providers Care Touch Up Painter Hand Name Role Phone Valencia Adhikari APRN Primary Care Provider [phone] Encounter Details Date Type Department Care Team (Latest Contact Info) Description 09/01/2021 11:00 AM EDT TH Visit (TeleHealth) Psychiatry [place] [phone] Lisa Dickens, PhD Borderline personality disorder; Unspecified mood (affective) disorder 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 Tobacco Use Types Packs/Day [...] Progress Notes * Lisa Dickens, PhD - 09/01/2021 11:00 AM EDT INDIVIDUAL THERAPY PROGRESS NOTE CPT CODE 06342 LOCATION: Telehealth visit. Andree SinghTamara gave permission for and was seen for today's appointment with a Telehealth visit. During this visit she was located in her apartment in [place], [place]. Andree WallisKamranTamara is aware that for any urgent matter she can can contact her regional mental health crisis services. For patients located in [place]: www.Lever or text/call . Forpatients located in [place]: [email or web address]. To reach their [facility] mental health clinician or the outpatient Department of Psychiatry clinics,patient can call [phone]. SESSION DURATION: 20 minutes ATTENDEES: Patient PRIMARY COMPLAINT/DIAGNOSIS: Borderline Personality Disorder; Unspecified Mood Disorder; R/O PTSD TREATMENT MODALITY: DBT PATIENT REPORT OF CURRENT FUNCTIONING/CHANGES: Patient reported: -doing better, the sun helps, gardening with son -work has been a joke--they cut her hours and haven't given them back, having to use sick time and PTO to fill in paycheck -trip to [place] at end of September, feels weird about it all, hasn't seen this extended family in 15 years -can't afford the gas to go to the [facility], had to cancel appointment scheduled for tomorrow -having problems with landlord -going over to closest friends today, then going on a date CENTRAL THEME OF SESSION: coping skills IN-SESSION PROCEDURES: I provided empathic listening and validation. I encouraged patient to contact [facility] and explain that she cannot afford the gas required to come to the facility--ask for options or referrals closer to home. We explored the activities that have improved her mood and how she can continue to engage in activities that she enjoys and help her to feel good about herself. CLINICAL FINDINGS: PROGRESS FROM BASELINE: same as pre-treatment PROGRESS FROM LAST SESSION: slightly improved from previous session Patient-reported Psychiatry Follow-up [...] (Patient) Several days Difficulty (Patient) Very difficult HCARISSE-7 Score (Patient) 18 (Severe Anxiety) Psychiatry Improvement [...] and was linear and goal-directed. Mood was better and affect was predominantly euthymic. She was oriented to person, place and time. Insight and judgment were good. [...] text line and national hotline number. Homework: Reach out to Addiction Treatment Program. Engage in activities that increase enjoyment orpositive sense of self. Next Appointment: 09/08/2021 Lisa Dickens, PhD documented in this encounter Plan of Treatment Upcoming Encounters Date Type Department Care Team (Late st Contact Info) Description 05/23/2024 [place] [address] Maite Malloy MD [facility] DR OBSTETRICS [place] [address] documented as of this encounter Visit Diagnoses Diagnosis Borderline personality disorder Unspecified mood (affective) disorder documented in this encounter Care Teams Touch Up Painter Hand Relationship Specialty Start Date End Date Valencia Adhikari APRN [address] [place] [address] PCP - General 04/21/14 07/04/23 documented as of this encounter
--- OUTSIDE RECORDS SUMMARY | 2023-10-29 03:58 | XMS_ITS | Encounter Summary ---
[place] [address] Care Team Providers Care Medical Insurance Verifier Name Role Phone OnofreMarilyn pittshrryan Barton [place] Primary Care Provider [phone] Encounter Details Date Type Department Care Team (Late st Contact Info) Description 12/07/2021 Telephone [place] [address] Magalie Pinon 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 Tobacco Use Types Packs/Day Years [...] encounter Miscellaneous Notes * Telephone Encounter - Magalie Pinon - 12/07/2021 9:49 AM EDT Inbound/Outbound: OUT Spoke to Patient/Left Message: VMB full Notes: (RUSLAN LIST) CALL X2 Return calls can be handled by: Any Procedure Brand Analyst documented in this encounter Plan of Treatment Upcoming Encounters Date Type Department Care Team (Late st Contact Info) Description 05/23/2024 [place] [address] Maite Malloy MD [facility] OBSTETRICS [place] [address] documented as of this encounter Visit Diagnoses Not on filedocumented in this encounter Care Teams Medical Insurance Verifier Relationship Specialty Start Date End Date Valencia Adhikari APRN [address] [place] [address] PCP - General 04/21/14 07/04/23 documented as of this encounter
--- OUTSIDE RECORDS SUMMARY | 2023-10-29 03:58 | XMS_ITS | Encounter Summary ---
Author Organization [facility] Address [facility] [place] [address] Care Team Providers Care Squeezer Operator Name Role Phone Valencia Adhikari APRN Primary Care Provider [phone] Encounter Details Date Type Department Care Team (Latest Contact Info) Description 07/27/2021 3:30 PM EDT TH Visit (TeleHealth) Psychiatry [place] [phone] Crispin Fuller MD [facility] [place] [address] Borderline personality disorder; Substance use disorder 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 Tobacco Use Types Packs/Day [...] Progress Notes * Crispin Fuller MD - 07/27/2021 3:30 PM EDT ESTABLISHED ADULT PATIENT TELEHEALTH VISIT NOTE Attendee(s): Patient This patient was seen with art objects supervisor Dr. Awad. See their note for confirmatory and/or revisionarydocumentation. Andree Hummel gave permission for and was seen for today's appointment with a Telehealth visit. During this visit they were located in [place]. Andree Hummel is aware that for any urgent matter they can call: If you are located in [place], please call your local community crisis line at [place]: [facility] [phone],[place]: [facility] [phone], or text [place] to [phone] For further information for [place] residents: [email or web address] To reach your mental health clinician or the outpatient Department of Psychiatry clinics: [phone] Chief Complaint: Its bad History of Present Illness: () (Quality, Severity, Duration, Timing, Context, Modifying factors, Associated S&S) Andree Hummel is a 31 y.o. female with history of depression, anxiety, and hyperthyroidism s/p thyroidectomy presenting for follow-up and medication management. -Per chart review, Andree had an unintentional overdose on percocet which she fears may have been laced with another substance last week. She has since discussed this with her therapist who encouraged engagement in substance use treatment. -Andree reports that she had been struggling with chronic shoulder pain and other stressors at workwhich lead her to buy a percocet off of the street. She states that she took one pill and overdosedrequiring a hospital admission, which she checked out from [facility]. -Andree was charged with a DUI and has ongoing legal issues related to this incident. Agreed after discussion with her therapist to pursue outpatient substance treatment through [facility] with plans for first visit next . -She has continued mirtazapine and effexor, though is unsure if they are helpful right now. She does feel that they have been helpful in the past. -Despite ongoing stressors, denies any SI/HI or urges to self harm today. Substance Use: Tobacco-Smokes pack per day, using E-cigarette during appointment Marijuana-daily use, for anxiety, appetite, and insomnia Alcohol-drinking 6 pack of mikes hard lemonade per week Endorses Heroin and cocaine in the past, stopped several years ago Recent use of percocet for shoulder pain with unintentional OD in July of 2021 Safety: Patient strongly denies suicidal ideation or self harm behaviors. She has crisis number andagrees to present to nearest ED if she develops suicidal ideation or intent/plan to harm herself. Questionnaires: PHQ9 Questionnaires Data (Clinic and Pt Entered): last 4 values PHQ-9 QUESTIONNAIRE LAST 4 VALUES (AMB) 02/21/2018 03/21/2018 08/22/2018 08/04/2020 PHQ - 9 Score (Patient) 17 (Moderately Severe Depression) 17 (Moderately Severe Depression) 18 (Moderately Severe Depression) - Little interest or pleasure (Clinic) - - - Not at all Little interest or pleasure (Patient) More than half the days More than half the days More than half the days - Down, depressed, hopeless (Clinic) - - - Not at all Down, depressed, hopeless (Patient) More than half the days Nearly every day Nearly every day - Trouble sleeping (Patient) Nearly every day Several days Nearly every day - Tired or no energy (Patient) More than half the days More than half the days More than half the days - Poor appetite or overeating (Patient) Nearly every day Nearly every day Nearly every day - Feeling like a failure (Patient) Several days More than half the days Not at all - Trouble concentrating (Patient) Nearly every day Nearly every day More than half the days - Moving or speaking slowly (Patient) Several days Several days Nearly every day - Would be better off (Patient) Not at all Not at all Not at all - GAD7 Questionnaires Data: last 4 values CHARISSE-7 Patient Reported Responses 12/13/2017 02/21/2018 03/21/2018 08/22/2018 Nervous, anxious (Patient) Nearly every day Nearly every day Nearly every day Nearly every day Unable to stop worrying (Patient) More than half the days Nearly every day Nearly every day Nearly every day Worrying about different things (Patient) Nearly every day Nearly every day Nearly every day Nearlyevery day Trouble relaxing (Patient) More than half the days Nearly every day Nearly every day Nearly every day Restless (Patient) More than half the days More than half the days More than half the days More than half the days Easily annoyed, irritable (Patient) Nearly every day Nearly every day Nearly every day Nearly everyday Afraid something awful will happen (Patient) Several days Several days Several days Several days Difficulty (Patient) Very difficult Extremely difficult Extremely difficult Very difficult CHARISSE-7 Score (Patient) 16 (Severe Anxiety) 18 (Severe Anxiety) 18 (Severe Anxiety) 18 (Severe Anxiety) Current Medications: Current Outpatient Medications Medication Sig Dispense Refill ??? mirtazapine (REMERON) 7.5 mg Tablet Take 1 tablet by mouth nightly. 30 tablet 2 ??? venlafaxine (EFFEXOR) 75 mg Tablet Take 1 tablet by mouth 3 times daily. (Patient taking differently: Take 75 mg by mouth daily.) 30 tablet 1 ??? ergocalciferoL, vitamin D2, [...] No current facility-administered medications for this visit. Pertinent Medication Side Effects: See below in med trials Review of Systems: CONST no recent weight change and no fever GI no nausea, no vomiting and no diarrhea NEURO no headache, no numbness and no tremors PSYCH See above / control Mirena IUD Allergies Reviewed on eD-H Past Psychiatric history and treatment: Prior diagnoses: Depression, anxiety History of debbie: Voices symptoms of debbie (every 4-6 weeks she will experience a 2 week period of time where she does not sleep, does not eat, engages in risky behavior, starts several projects thatshe is unable to finish, and has inflated self-esteem. She also endorses becoming psychotic, stating she becomes angry and that it is often easily triggered. Sometimes it gets to the point where it can get physical, stating she will punch inanimate objects. The last time something like this occurred was about 3-4 weeks ago. The patient states sh can go from 60 angry to 60 sad), but denies being hospitalized for said symptoms/behavior Prior psychiatric hospitalizations: Denies Prior outpatient treatment: Seen by Dr. Armida Griffith during for medication trials post Prior suicide attempts or self-harm: Notes 3 suicide attempts via OD last at age 18, but never hospitalized; states she always ended up vomiting the medications Prior violence or legal issues: Denies Prior ECT/TMS: Denies Prior medications trials (dosage, response, side effects, adequacy of trial): SSRIs:??Zoloft, prozac- I don't remember if they were helpful, tried in high school, Trazodone- just made me sleepy Gabapentin Hydroxyzine-didn't do anything Buspar Ativan-helpful 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: Lives with 7 year old son, two cats and a dog. 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 Vitals (24hr Range): No data found. Musculoskeletal System: normal gait and balance, ambulates independently and no atrophy Mental Status Exam: ?? Appearance: age appropriate and casually dressed ?? Behavior: cooperative with the interview and calm ?? Speech: normal pitch, normal volume, normal rate and normal rhythm ?? Language: fluent in maori ?? Mood: terrrible ?? Affect: constricted ?? Thought Process: linear and logical ?? Associations: intact ?? Thought Content: denied homicidal ideation, denied suicidal ideation, no bizarre delusions and no paranoid delusions ?? Perception: denied auditory hallucinations denied visual hallucinations not observed responding to internal stimuli ?? Orientation: grossly intact by interview ?? Attention/Concentration: able to sustain focus and able to resist distraction ?? Cognition: grossly intact by interview ?? Memory: recent and remote memory grossly intact ?? Fund of Knowledge: appropriate for age and level of functioning ?? Insight: fair ?? Judgment: fair ?? Labs: Psychiatry Labs: 05/09/2021 TSH: .32 H Free T4: 1.23 Formulation and Assessment: Overall Formulation Andree endorses a long history of rapid cycling moods and anxiety that has been exacerbated in recent months with the COVID pandemic and various psychosocial stressors. She further endorses recent worsening of depressive symptoms with low energy, low motivation, anhedonia, and sleep disturbance. Andree's rapid cycling moods and difficulties with emotional regulation and distress tolerance are conc erning for underlying personality disorder. I feel strongly that she could benefit from psychotherapy. Diagnosis: Borderline personality disorder CURRENT ASSESSMENT: Andree endorses exacerbation of her depression and anxiety in the context of a recent unintentionaloverdose on percocet which she had obtained off the street to deal with chronic shoulder pain. Thishas lead to legal consequences and significant stress. In this context, endorses depressed mood, anhedonia, lack of motivation, and low energy. At our last visit we restarted effexor and remeron, which she had previously seen benefit from. It is reasonable to continue to optimize these medications to target mood and anxiety symptoms. We agreed to increase effexor to 150mg today. Positively, Andree plans to engage in outpatient substance treatment at [facility] starting next and reports a goal of abstaining from opiate use. We will continue to monitor substance use and offer resources as needed. Given her recent substance use continue to advise against benzodiazepine use in management of anxiety. Encouraged continued engagement in psychotherapy to build distress tolerance and emotional regulation skills. Safety Assessment: Andree strongly denies any suicidal ideation or recent self injurious behaviors.She agrees to present to the nearest ED if she were to develop intent or plan to harm herself. Plan: - Continue mirtazapine 15mg qhs (encouraged consistent use) - Increase Effexor XR to 150mg PO QD - Encouraged regular follow-up with endocrinology regarding thyroid function - Encouraged follow-up with therapy - Follow-up 09/28 at 3:30 PM Patient Instruction/Education provided: Patient provided verbal instructions regarding medication side effects, safety plan in case of feeling unsafe. Patient understands the plan? Yes Signed By: Crispin Fuller MD 07/27/2021 * Jessica Awad MD - 07/27/2021 3:30 PM EDT PSYCHIATRY TEACHING PHYSICIAN INVOLVEMENT Location: Adult Psychiatry Medication Clinic, video Attending Physician: Jessica Awad MD Resident name: Crispin Fuller MD I saw and evaluated the patient with Dr. Fuller. Please see his note for details. I reviewed the patient's history during the visit and I agree with the details as written. My exam confirms the resident's findings. The assessment and plan were formulated in discussion with me and I agree with them as documented. Major issues addressed/discussed: 31yo woman returning for follow-up of unspecified depressive disorder, anxiety, BPD. Currently taking Effexor 75mg daily and mirtazapine 15mg qHS. Had an unintentional overdose recently (reports that she took 1 pill she thought was Percocet)--found unresponsive, treated with Narcan, hospitalized, left AMA, has associated legal issues. Has an appointment at [facility] next week. Reports using cannabis, drinking a six-pack weekly. Reports depressed mood. Denies suicidalideation. Plan today to change Effexor to XR and increase to 150mg daily, continue mirtazapine 15mgqHS. Jessica Awad MD documented in this encounter Plan of Treatment Upcoming Encounters Date Type Department Care Team (Late st Contact Info) Description 05/23/2024 [place] [address] Maite Malloy MD [facility] DR OBSTETRICS [place] [address] documented as of this encounter Visit Diagnoses Diagnosis Borderline personality disorder Substance use disorder documented in this encounter Care Teams Squeezer Operator Relationship Specialty Start Date End Date Valencia Adhikari APRN [address] [place] [address] PCP - General 04/21/14 07/04/23 documented as of this encounter
--- OUTSIDE RECORDS SUMMARY | 2023-10-29 03:58 | XMS_ITS | Encounter Summary ---
[place] [address] Care Team Providers Care Head Start Assistant Teacher Name Role Phone Richard Rasheed MD Primary Care Provider Reason for Referral * Psychiatric (Routine) - Closed Specialty Diagnoses / Procedures Referred By Contwillow t Referred To Contact Psychiatry Diagnoses Bipolar affective disorder, current episode mixed, current episode severity unspecified Richard Rasheed MD [address] [place] [address] [facility] [place] [address] Referral ID Status Reason Start Date Expiration Date V isits Requested Visits Authorized [id number] Closed Consult, Test & Treat PCP Updated and/or Approved 07/05/2023 07/04/2024 6 6 Encounter Details Date Type Department Care Team (Latest Contact Info) Description 07/05/2023 Transcribe Orders eDH Incoming Referrals [phone] Richard Rasheed MD [address] [place] [address] Bipolar affective disorder, current episode mixed, current episode severity unspecified 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 Tobacco Use Types Packs/Day Years [...] Contact Info) Description 05/23/2024 Hospital [place] [address] Maite Malloy MD [facility] [address] OBSTET[place] [address] Scheduled Referrals Name Type Priority Associated Diagnoses Orde r Schedule Referral to Adult Psychiatry Outpatient Referral Routine Bipolar affective disorder, current episode mixed, current episode severity unspecified Ordered: 07/05/2023 documented as of this encounter Visit Diagnoses Diagnosis Bipolar affective disorder, current episode mixed, current episode severity unspecified documented in this encounter Care Teams Head Start Assistant Teacher Relationship Specialty Start Date End Date Richard Rasheed MD [address] [place] [address] PCP - General Family Medicine 07/05/23 documented as of this encounter
--- OUTSIDE RECORDS SUMMARY | 2023-10-29 03:58 | XMS_ITS | Encounter Summary ---
Author Organization [facility] Address [facility] [place] [address] Care Team Providers Care Sales Office Coordinator Name Role Phone Richard Rasheed MD Primary Care Provider [phone] Encounter Details Date Type Department Care Team (Late st Contact Info) Description 10/19/2023 [place] [phone] Tye Gamble MD [facility] OBSTETRICS [place] [address] 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 Tobacco Use Types Packs/Day Years [...] from your doctor or pharmacy? Never 10/12/2023 [facility] Utilities Answer Date Recorded In the past 12 months has e dscovered, gas, oil, or water [employer] threatened to shut off services in your [...] any time in the past 12 m [facility], were you homeless or living in a penitentiary (including now)? Yes 10/12/2023 Estimated Date of Delivery Comme nts Yes 06/12/2024 Based on Ultraso und Sex and Gender Information Value Date Recorded Sex Assigned at Female 10/12/2023 9:44 AM EDT Gender Identity Female 10/12/2023 9:44 AM EDT Sexual Orientation Straight 10/12/2023 9: 44 AM EDT documented as of this encounter Miscellaneous Notes * Telephone Encounter - Tye Gamble MD - 10/19/2023 8:24 AM EDT Beta List Telephone Phone Note Andree Hummel is a 33 y.o. at 6w1d (by GS measurement) who reported having scant vaginal spotting at her new OB visit. At new OB visit TVUS demonstrated a gestational sac, no yolk sac, therefore PUL. Beta hcg trend 10/06/2023: 150 (per patient report, drawn at urgent care) Plan made for beta hcg monitoring (10/11, 10/14) and TVUS in 2 weeks. [facility] message sent to patient earlier this week with reminder to complete beta hcg. Andree reports that she is doing well at this time, denies any further vaginal bleeding or spotting. Tried to get lab drawn at [facility] this week, however was told she needed to get first measurement at [facility] (lab requisition already sent to [facility], with no specification on where/when lab needs to bedrawn). Understandably frustrated at this time and would prefer not to do lab draws if possible. Ifeel fine, just nauseated, I know I'm . Discussed our recommendation for beta hcg trend x48 hours and that it would be helpful to confirm viability. However, given that she is no longer having any bleeding and does not have any abdominal pain, an alternative would be to schedule a TVUS in 2 weeks from when gestational sac was seen on 10/11. TVUS order placed for on/after 10/25. Routine precautions provided, including ectopic precautions. She is aware to call with any increased heavy bleeding, abdominal pain, etc. Will check in early next week to make sure patient is doing well at home. Tye Gamble MD, PGY4 Obstetrics and Gynecology 10/19/2023 documented in this encounter Plan of Treatment Upcoming Encounters Date Type Department Care Team (Late st Contact Info) Description 05/23/2024 [place] [address] Maite Malloy MD [facility] [place] [address] documented as of this encounter Visit Diagnoses Not on filedocumented in this encounter Care Teams Sales Office Coordinator Relationship Specialty Start Date End Date Richard Rasheed MD [address] [place] [address] PCP - General Family Medicine 07/05/23 documented as of this encounter
--- OUTSIDE RECORDS SUMMARY | 2023-10-29 03:58 | XMS_ITS | Encounter Summary ---
Author Organization [facility] Address [facility] [place] [address] Care Team Providers Care Eyeglass Frames Polisher Name Role Phone Richard Rasheed MD Primary Care Provider [phone] Encounter Details Date Type Department Care Team (Late Contact Info) Description 08/15/2023 Telephone [place]stetrics [place] [address] Sarah Tejeda 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 Tobacco [...] Contact Info) Description 05/23/2024 Hospital [place] [phone] [facility] [address] OBSTETRICS [place] [address] documented as of this encounter Visit Diagnoses Not on filedocumented in this encounter Care Teams Eyeglass Frames Polisher Relationship Specialty Start Date End Date Richard Rasheed MD [address] [place], [place] [id number] PCP - General Family Medicine 07/05/23 documented as of this encounter
--- OUTSIDE RECORDS SUMMARY | 2023-10-29 03:58 | XMS_ITS | Clinical Summary ---
Author Organization [facility] Address [facility] [place] [address] Care Team Providers Care Family Worker Name Role Phone Richard Rasheed MD Primary Care Provider [phone] Allergies Active Allergy Reactions Criticality Noted Date Comments Codeine Nausea And Vomiting Low 12/31/2019 Meperidine Anaphylaxis High 04/25/2012 Hydromorphone (Bulk) Hives High 03/22/2011 Medications Medication Sig Dispensed Refills Start Date End Date Status levothyroxine (SYNTHROID) 200 mcg Tablet take 1 tablet by mouth once daily 0 05/23/2017 Active celecoxib (CELEBREX) 200 mg CapsuleIndications :Scapular dyskinesis Take 1 capsule by mouth daily. 30 capsule 1 12/24/2018 Active Additional Information Patient not taking.Reported on 10/12/2023 cyanocobalamin, vitamin B-12, 500 mcg Tablet Take 1 tablet by mouth daily. 100 tablet 3 05/10/2021 Active Additional Information Patient not taking.Reported on 10/12/2023 ferrous sulfate 324 mg (65 mg iron) Tablet, Delayed Release (E.C.) Take 1 tablet by mouth every evening. 100 tablet 05/10/2021 Active Additional Information Patient not taking.Reported on 10/12/2023 venlafaxine (EFFEXOR-XR) 150 mg Capsule, Sust. Release 24 hr Take 1 capsule by mouth daily. 30 capsule 2 07/27/2021 Active Additional Information Patient not taking.Reported on 10/12/2023 mirtazapine (Remeron) 15 mg Tablet Take 1 tablet by mouth nightly. 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 Removed 08/04/2020. Threatened labor, antepartum 09/03/2012 04/01/2015 Obesity (BMI 30.0-34.9) 06/12/201203/16 History of loss in prior , currently 06/12/2012 04/01/2015 Overview (06/12/2012): Reports 20 week loss that she delivered at home and did not seek care. , supervision of, high-risk 05/22/2012 04/01/2015 Overview (05/22/2012): Team MFM transfer [facility] from [facility] Delivery plan GBS date & Result Cystic fibrosis choice Aneuploidy choice QUAD Others screening tests nutrition Childbirth education declined preferences Contraception plan undecided Ped/circ plans Immunizations: Influenza vaccine Accepted Declined Contraindicated x Other vaccines Indicated Not indicated Given during Tdap x Pneumovax MMR Varicella Other Migraine 02/23/2011 04/01/2015 Thyroid nodule 02/23/2011 06/12/2012 Encounters Date Type Department Care Team Description 10/26/2023 Telephone [place]etrics [place] [address] Tye Gamble MD 10/23/2023 Telephone [place] [address] Natalia Bravo RN 10/19/2023 Telephone [facility] [place] [phone] Tye Gamble MD 10/12/2023 10:20 AM EDT Initial [place]stetrics [place] [address] Tye Gamble MD [place]: 5w1d 10/12/2023 Travel 08/15/2023 Telephone Obstetrics and Gynecology at [place] [phone] Sarah Tejeda 08/13/2023 Telephone [place]etric[place] [address] Sarah Tejeda from Last 3 Months Immunizations Name Administration Dates Next Due Influenza Quadrivalent, Preservative Free 2019,01/15/2019 Family History Medical History Relation Comments * Brother 1 dyspraxia Asthma Brother 2 Migraines Father Parkinsonism Father Cancer Maternal Grandfather lung cancer Dementia Maternal Grandmother Alzheimer's Arrhythmia Mother Breast Cancer Mother had three lumps removed in her 40's Coronary Artery Disease Mother Parkinsonism Mother Arthritis Paternal Aunt Lupus Paternal Aunt Cancer Paternal Grandfather lung cancer Myocardial Infarction Paternal Grandmother Thyroid Cancer Paternal Grandmother Thyroid Disease Sister 1 NOS GENETIC SYNDROMES Sister 2 possible L JACKI deficiency Relation Status Comments Brother 1 Alive Brother 2 Alive Father Alive Maternal Grandfather Maternal Grandmother Alive Mother Alive Paternal Aunt Alive Paternal Grandfather Paternal Grandmother Sister 1 Sister 2 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 Tobacco Use Types Packs/Day Years Used Date Smoking Tobacco: Every Day Cigarettes 0.5 4 Smokeless Tobacco: Never Tobacco Cessation:Ready to Q uit: Yes; Counseling Given: No Alcohol Use Standard Drinks/Week Comments Yes 0 (1 standard drink = 0.6 oz pur e alcohol) socially B1300 Health Literacy Answer Date Recor ded How often do you need to hav e someone help you when you read instructions, pamphlets, or other written material from your doctor or pharmacy? Never 10/12/2023 [facility] Utilities Answer Date Recorded In the past 12 months has th e electric, gas, oil, or water company threatened to shut off services in your [...] any time in the past 12 m [facility], were you homeless or living in a half-way (including now)? Yes 10/12/2023 Estimated Date of Delivery Comme nts Yes 06/12/2024 Based on Ultraso und Sex and Gender Information Value Date Recorded Sex Assigned at Female 10/12/2023 9:44 AM EDT Gender Identity Female 10/12/2023 9:44 AM EDT Sexual Orientation Straight 10/12/2023 9: 44 AM EDT Last Filed Vital Signs Vital Sign Reading Time Taken Comments Blood Pressure 111/75 10/12/2023 10:20 AM EDT Pulse 120 08/18/2021 2:00 PM EDT Temperature 36.8 ??C (98.2 ??F) 08/04/2020 10:16 AM E DT Respiratory Rate 10 04/26/2021 11:20 AM EST Oxygen Saturation 99% 08/04/2020 10:16 AM EDT Inhaled Oxygen Concentration - - Weight 85 kg (187 lb 4.8 oz) 10/12/2023 10:20 AM EDT Height 172.7 cm (5' 8) 04/26/2021 11:20 AM EST Body Mass Index 28.48 04/26/2021 11:20 AM EST Plan of Treatment Upcoming Encounters Date Type Department Care Team (Late st Contact Info) Description 05/23/2024 [place] [address] Maite Malloy MD [facility] DR OBSTETRICS [place] [address] Health Maintenance Due Date Last Done Comments Pneumococcal Vaccine: At-Ris k 5-64yrs (1 of 2 - PCV) 06/15/1997 Hepatitis C Screening 06/15/2009 Lipid Screening 06/15/2009 Hepatitis B vaccine (0-59 yrs) (1) 06/15/2010 Tdap adult 06/15/2010 Tetanus vaccine 06/15/2010 Covid-19 Vaccine (1 - season) 2022 PAP Smear 08/05/2023 08/04/2020 Influenza (Flu) vaccine (1 o f 1 - Influenza standard series) 12/16/2023 01/16/2020, 01/15/2019 HIV screen Completed 09/03/2012 Procedures Procedure Name Priority Date/Time Associated Diagnosis Comments HC URINE CULTURE Routine 10/12/2023 10:2 0 AM EDT care in first trimester HC GC GENE AMP Routine 10/12/2023 10:20 AM EDT care in first trimester POCT URINE Routine 10/12/2023 care in first trimester CYBER ENGINEER CYTOLOGY FINAL REPORT Routine 08/04/2020 10:25 AM EDT HIV AB/AG RAPID TEST (CARIE/NL) Routine 09/03/2012 7:45 PM EDT from Last 3 Months or Most Recently Relevant to Health Maintenance Results * GC/Chlamydia Vaginal (10/12/2023 10:20 AM EDT) GC Gene Amp Negative Negative [facility] Comment: Eye specimens are not an FDA-cleared source for this testing. The performance of this assay with eye specimens has been validated in-house. GC Source Vaginal [facility] Chlamydia Gene Amp Negative Negative [facility] Comment: Eye specimens are not an FDA-cleared source for this testing. The performance of this assay with eye specimens has been validated in-house. Chlamydia Source Vaginal [facility] Vaginal 10/12/2023 10:2 0 AM EDT 10/12/2023 11:54 AM EDT Narrative Resulting Agency Comment Spec In Lab Kelesa Shafer MD MICROBIOLOGY - [facility] ORDERABLES [facility] [place] [place] [address] * (ABNORMAL) Urine culture Clean Catch Urine (10/12/2023 10:20 AM EDT) Pathologist [facility] Urine Culture 10,000-49,000 cfu/ml mixed mucosal ike Note: Culture shows multiple bacterial species suggesting mucosal contamination. (A) [facility] Clean Catch Urine 10/12/2023 10:20 AM EDT 10/12/2023 11:53 AM EDT Narrative Resulting Agency Comment Spec In Lab Kelsea Shafer MD MICROBIOLOGY - GENE [facility] ORDERABLES [facility] [place] [address] * POCT urine (10/12/2023) POC Urine HCG Positive POC Control Internal Controls Acceptable Armida Leroy MD POINT OF CARE TEST O RDERABLES * In Classroom Tutor Cytology Final Report (08/04/2020 10:25 AM EDT) Pathologist [facility] In Classroom Tutor Cytology Final Report [id number] ? Location: 5L The signing pathologist has (i) examined the relevant preparation(s) for the specimen(s) and (ii) rendered or confirmed the diagnosis(es). . ? In Classroom Tutor Final DIAGNOSIS Infection and/or Reactive Repair Process Note: Reactive changes are present in the epithelial cells (benign cellular changes). This Pap test is negative for intraepithelial lesion or malignancy. (NILM) For consensus guidelines for the management of cervical cancer screening test results, please see: ?? http://www.asccp.o rg . Electronically signed by: ?Reji Sandoval MD Verified: ??08/16/2020 12:02 ??Cytopathologist Performed at: ??-[facility] [place], [place], [place] HPV RESULTS HPV testing either not indicated or not requested by clinician. STATEMENT OF ADEQUACY Specimen submitted is satisfactory. Endocervical component present. CLINICAL INFORMATION HPV Option: ?Reflex HPV CT/NG Option: ?Yes Preparation: ? Liquid based Pap Specimen Source: ? Cervical/Endocervi shira LMP: ? IUD Hysterectomy: ?No : ?No : ?No I.U.D.: ?No Pelvic Radiation: ?No Hist Abnl Pap/Biopsy: ?No Prior CYBER ENGINEER Therapy: ? No Hist of HPV Vaccine: ? No ICD Diagnosis: ? Z12.4 Encounter for screening for malignant neoplasm of cervix Clinical Data, Significant Therapy and Clinical Impression ?? : ?_ This Pap Test has been evaluated with the assistance of the AgralogicsPrep Pap Test Imaging System. Note: The Pap test is a screening test for cervical cancer with an inherent false-negative rate dependent upon several variables. For further information please contact the [facility]. Reference: Rosy ORTIZ. Highway Painter of Pap Smear Results. In: Chelsey BS, Joshua HH, ed. The Pap Smear. [place]: Lázaro, 2002: 71-77. [facility] 08/04/2020 10:2 5 AM EDT Malena Hernandez APRN PATHOLOGY/CYT OLOGY ORDERABLES Performing Organization Address City/State/[facility] Co de Phone Number [facility] [place] [address] * HIV Antibody Rapid Test (09/03/2012 7:45 PM EDT) HIV Ab/Ag Rapid Non-Reactive Non-React pancho [facility] Comment:Testing done by [employer] me Immunoassay. HIV Comment Negative screening test indicates low risk of HIV exposure. Called by: NM_, Read back by: Lia Rogers_, Date/Time:_ 21:45. [facility] Blood specimen (specimen) 09/03/2012 7:45 PM EDT 09/03/2012 9:19 PM EDT Narrative Resulting Agency Comment Spec In Lab Lalita Carmona MD CHEMISTRY ORDERABL ES [facility] from Last 3 Months or Most Recently Relevant to Health Maintenance Advance Directives * Full Code (Latest Code Status on File) Date Activated Date Inactivated Comments 09/13/2012 5:49 AM 09/14/2012 2:13 PM Question Answer Comments Order Status: Initial Order Does patient have decision m aking capacity? Yes, Order is based on Patients wishes. * Full Code Date Activated Date Inactivated Comments 09/03/2012 7:07 PM 09/05/2012 12:57 PM Question Answer Comments Order Status: Initial Order Does patient have decision m aking capacity? Yes, Order is based on Patients wishes. * Full Code Date Activated Date Inactivated Comments 03/22/2011 5:20 PM 09/03/2012 7:07 PM Question Answer Comments Does patient have decision m aking capacity? Yes, Order is based on Patients wishes. * Full Code Date Activated Date Inactivated Comments 03/22/2011 1:02 PM 03/22/2011 5:20 PM Question Answer Comments Order Status: Initial Order Does patient have decision m aking capacity? Yes, Order is based on Patients wishes. Care Teams Family Worker Relationship Specialty Start Date End Date Richard Rasheed MD [address] [place] [address] PCP - General Family Medicine 07/05/23
--- OUTSIDE RECORDS SUMMARY | 2023-10-29 03:58 | XMS_ITS | Encounter Summary ---
Author Organization [facility] [place] [address] Care Team Providers Care Snowmobile Mechanic Name Role Phone Richard Rasheed MD Primary Care Provider [phone] Encounter Details Date Type Department Care Team (Late st Contact Info) Description 07/22/2023 Telephone Obstetrics [place] [address] Heavenly Blackmon MD [facility] DR OBSTETRICS & [place] [address] 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 Tobacco Use Types Packs/Day Years [...] encounter Miscellaneous Notes * Telephone Encounter - Heavenly Blackmon MD - 07/22/2023 12:36 PM EDT Telephone Encounter Andree is a 33 yo female who paged the on-call line. Attempted to call patient back with no answer and no voicemail available. Heavenly Blackmon MD documented in this encounter Plan of Treatment Upcoming Encounters Date Type Department Care Team (Late st Contact Info) Description 05/23/2024 Hospital En[place] [phone] Maite Malloy MD [facility] OBSTETRICS [place] [address] documented as of this encounter Visit Diagnoses Not on filedocumented in this encounter Care Teams Snowmobile Mechanic Relationship Specialty Start Date End Date Richard Rasheed MD [address] [place] [address] PCP - General Family Medicine 07/05/23 documented as of this encounter
--- OUTSIDE RECORDS SUMMARY | 2023-10-29 03:58 | XMS_ITS | Encounter Summary ---
Author Organization [facility] [place] [address] Care Team Providers Care Frame Coverer Name Role Phone Valencia Adhikari APRN Primary Care Provider [phone] Encounter Details Date Type Department Care Team (Latest Contact Info) Description 09/22/2021 11:00 AM EDT TH Visit (TeleHealth) Psychiatry and Behavioral Health at [facility] [place] [phone] Lisa Dickens, PhD Unspecified mood (affective) disorder; [...] Progress Notes * Lisa Dickens, PhD - 09/22/2021 11:00 AM EDT INDIVIDUAL THERAPY PROGRESS NOTE CPT CODE 38441 LOCATION: Telehealth visit. Andree SinghTamara gave permission for and was seen for today's appointment with a Telehealth visit. During this visit she was located in her apartment in [place], [place]. Andree WallisKamranTamara is aware that for any urgent matter she can can contact her regional mental health crisis services. For patients located in [place]: www.[employer] or text/call . Forpatients located in [place]: [email or web address]. To reach their [facility] mental health clinician or the outpatient Department of Psychiatry clinics,patient can call [phone]. 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 We discussed patient's uncertainty about what to discuss. I set an assignment for patient to think over the next week about what she doesn't want to tell me and bring that to our next session so we can explore what she doesn't want to talk about in session and why. CLINICAL FINDINGS: PROGRESS FROM BASELINE: same as pre-treatment PROGRESS FROM LAST SESSION: same as previous session Patient-reported Psychiatry Follow-up scores and [...] casually dressed and adequately groomed. She smoked a cigarette during the session.The room was very dark and it was difficult to fully assess patient. Speech was normal in rate, rhythm, volume, and tone and was linear and goal-directed. Mood was okay and affect was predominantlyeuthymic. She was oriented to person, place and time. Insight and judgment were good. There were nohallucinations in any sensory modality. No delusions were [...] text line and national hotline number. Homework: Continue to engage in activities that increase enjoyment or positive sense of self. Reflect on what she doesn't want to discuss before the next session. Next Appointment: 09/29/2021 Lisa Dickens, PhD documented in this encounter Plan of Treatment Upcoming Encounters Date Type Department Care Team (Late st Contact Info) Description 05/23/2024 Hospital [place] [address] Maite Malloy MD [facility] DR OBSTETRICS [place] [address] documented as of this encounter Visit Diagnoses Diagnosis Unspecified mood (affective) disorder Borderline personality disorder documented in this encounter Care Teams Frame Coverer Relationship Specialty Start Date End Date Valencia Adhikari APRN [address] [place] [address] PCP - General 04/21/14 07/04/23 documented as of this encounter
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
--- OUTSIDE RECORDS SUMMARY | 2023-10-29 03:58 | XMS_ITS | Encounter Summary ---
[place] [address] Care Team Providers Care Fish Cake Maker Name Role Phone Valencia Adhikari APRN Primary Care Provider [phone] Encounter Details Date Type Department Care Team (Late st Contact Info) Description 07/14/2021 [place] [phone] Snehal Madsen CCMA 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 Tobacco Use Types Packs/Day Years [...] encounter Miscellaneous Notes * Telephone Encounter - Snehal Madsen CCMA - 07/14/2021 10:53 AM EDT Called patient to review medications and allergies for their upcoming gastroenterology Type of Appointment: Telehealth appointment. Reach Patient during MA Check: Yes Notes for the provider: Notes for the nurse: documented in this encounter Plan of Treatment Upcoming Encounters Date Type Department Care Team (Late st Contact Info) Description 05/23/2024 Hospital En[place] [address] Maite Malloy MD [facility] OBSTETRICS [place] [address] documented as of this encounter Visit Diagnoses Not on filedocumented in this encounter Care Teams Fish Cake Maker Relationship Specialty Start Date End Date Valencia Adhikari APRN [address] [place] [address] PCP - General 04/21/14 07/04/23 documented as of this encounter
--- OUTSIDE RECORDS SUMMARY | 2023-10-29 03:58 | XMS_ITS | Encounter Summary ---
Author Organization [facility] [place] [address] Care Team Providers Care Flexo Folder Gluer Operator Name Role Phone Valencia Adhikari APRN Primary Care Provider [phone] Encounter Details Date Type Department Care Team (Latest Contact Info) Description 07/21/2021 11:00 AM EDT TH Visit (TeleHealth) Psychiatry and Behavioral Health at [facility] [place] [phone] Lisa Dickens, PhD Unspecified mood (affective) disorder; [...] Progress Notes * Lisa Dickens, PhD - 07/21/2021 11:00 AM EDT INDIVIDUAL THERAPY PROGRESS NOTE CPT CODE 48021 LOCATION: Telehealth visit. Andree SinghTamara gave permission for and was seen for today's appointment with a Telehealth visit. During this visit she was located in her apartment in [place], [place]. Andree WallisKamranTamara is aware that for any urgent matter she can can contact her regional mental health crisis services. For patients located in [place]: [email or web address] or text/call . Forpatients located in [place]: [email or web address]. To reach their [facility] mental health clinician or the outpatient Department of Psychiatry clinics,patient can call [phone]. 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 I recommended the patient contact the Addiction Treatment Program for an evaluation and we discussed the benefits of engaging in substance use focused treatment. We discussed the feels of shame and embarrassment that have shrouded her since the OD/arrest. We also explored the ways that she can take care of herself and what it might mean for her emotionally and physically to both acknowledge her bad choice and to accept that she is not defined by that choice. CLINICAL FINDINGS: PROGRESS FROM BASELINE: same as pre-treatment PROGRESS FROM LAST SESSION: worse than previous session Patient-reported Psychiatry Follow-up scores and [...] auditory or visual hallucinations ASSESSMENT/OBSERVATIONS: Patient arrived 30 minutes late to the appointment and was unaccompanied. Patient was casually dressed and adequately groomed. She smoked an e-cigarette during the session. The room was very dark and it was difficult to fully assess patient. Speech was normal in rate, rhythm, volume, and tone and was linear and goal-directed. Mood was horrible and affect was euthymic; full range, with [...] text line and national hotline number. Homework: Set up evaluation with Addiction Treatment Program. Engage in basic self-care tasks. Next Appointment: 07/28/2021 Lisa Dickens, PhD documented in this encounter Plan of Treatment Upcoming Encounters Date Type Department Care Team (Late st Contact Info) Description 05/23/2024 [place] [address] Maite Malloy MD [facility] [address] OBSTETRICS [place] [address] documented as of this encounter Visit Diagnoses Diagnosis Unspecified mood (affective) disorder Borderline personality disorder documented in this encounter Care Teams Flexo Folder Gluer Operator Relationship Specialty Start Date End Date Valencia Adhikari APRN [address] [place] [address] PCP - General 04/21/14 07/04/23 documented as of this encounter
--- OUTSIDE RECORDS SUMMARY | 2023-10-29 03:58 | XMS_ITS | Encounter Summary ---
Author Organization [facility], [facility] Address [facility] [place] [address] Care Team Providers Care Hand Molder Name Role Phone Richard Rasheed MD Primary Care Provider [phone] Encounter Details Date Type Department Care Team (Late st Contact Info) Description 10/26/2023 Telephone Obstetrics [place] [phone] Tye Gamble MD [facility] [address] OBSTETRICS & [place] [address] 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 Tobacco Use Types Packs/Day Years [...] from your doctor or pharmacy? Never 10/12/2023 [facility] Utilities Answer Date Recorded In the past 12 months has e [employer], gas, oil, or water [employer] threatened to shut off services in your [...] any time in the past 12 m [facility], were you homeless or living in a long-term (including now)? Yes 10/12/2023 Estimated Date of Delivery Comme nts Yes 06/12/2024 Based on Ultraso und Sex and Gender Information Value Date Recorded Sex Assigned at Female 10/12/2023 9:44 AM EDT Gender Identity Female 10/12/2023 9:44 AM EDT Sexual Orientation Straight 10/12/2023 9: 44 AM EDT documented as of this encounter Miscellaneous Notes * Telephone Encounter - Tye Gamble MD - 10/26/2023 7:46 AM EDT Beta List Telephone Phone Note Andree Hummel is a 33 y.o. at 7w1d (by GS measurement) who reported having scant vaginal spotting at her new OB visit. At new OB visit TVUS demonstrated a gestational sac, no yolk sac, therefore PUL. Beta hcg trend 10/06/2023: 150 (per patient report, drawn at urgent care) Plan made for beta hcg monitoring (10/11, 10/14) and TVUS in 2 weeks. On 10/18 spoke to patient, who strongly preferred to avoid further beta hcg checks, and denied any further vaginal bleeding or abdominal pain. Attempted to reach patient multiple times this week to check in, however unable to reach patient byphone. Call went straight to voicemail x2 today. Over myDH I have recommended for the patient to complete another beta hcg to help confirm viability. Another message was sent to secretaries to schedule TVUS with appointment to follow. Tye Gamble MD, PGY4 Obstetrics and Gynecology 10/26/2023 documented in this encounter Plan of Treatment Upcoming Encounters Date Type Department Care Team (Late st Contact Info) Description 05/23/2024 Hospital [place] [address] Maite Malloy MD [facility] [address] OBSTETRICS [place] [address] documented as of this encounter Visit Diagnoses Not on filedocumented in this encounter Care Teams Hand Molder Relationship Specialty Start Date End Date Richard Rasheed MD [address] [place] [address] PCP - General Family Medicine 07/05/23 documented as of this encounter
--- OUTSIDE RECORDS SUMMARY | 2023-10-29 03:58 | XMS_ITS | Encounter Summary ---
Author Organization [facility] [place] [address] Care Team Providers Care Administrative Support Assoc Name Role Phone OnofreValencia pitts BERLNI Primary Care Provider [phone] Encounter Details Date Type Department Care Team (Late st Contact Info) Description 07/14/2021 Telephone [place] [address] Maria Teresa Wheeler 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 Tobacco Use Types Packs/Day Years [...] encounter Miscellaneous Notes * Telephone Encounter - Maria Teresa Wheeler - 07/14/2021 3:12 PM EDT Lab orders faxed to [facility] at the request of KANDIS Hector. documented in this encounter Plan of Treatment Upcoming Encounters Date Type Department Care Team (Late st Contact Info) Description 05/23/2024 [place] [address] Maite Malloy MD [facility] [place] [address] documented as of this encounter Visit Diagnoses Not on filedocumented in this encounter Care Teams Administrative Support Assoc Relationship Specialty Start Date End Date Valencia Adhikari APRN [address] [place] [address] PCP - General 04/21/14 07/04/23 documented as of this encounter
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
--- OUTSIDE RECORDS SUMMARY | 2023-10-29 03:58 | XMS_ITS | Encounter Summary ---
Author Organization [facility] [place] [address] Care Team Providers Care Announcer Name Role Phone Richard Rasheed MD Primary Care Provider [phone] Encounter Details Date Type Department Care Team (Late st Contact Info) Description 10/23/2023 Telephone [place]stetrics [place] [address] Natalia Bravo, RN 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 Tobacco Use Types Packs/Day [...] from your doctor or pharmacy? Never 10/12/2023 [facility] Utilities Answer Date Recorded In the past 12 months has [facility] [employer], [employer], oil, or water [employer] threatened to shut off services in your [...] any time in the past 12 m [facility], were you homeless or living in a skilled nursing (including now)? Yes 10/12/2023 Estimated Date of Delivery Comme nts Yes 06/12/2024 Based on Ultraso und Sex and Gender Information Value Date Recorded Sex Assigned at Female 10/12/2023 9:44 AM EDT Gender Identity Female 10/12/2023 9:44 AM EDT Sexual Orientation Straight 10/12/2023 9: 44 AM EDT documented as of this encounter Miscellaneous Notes * Telephone Encounter - Natalia Bravo RN - 10/23/2023 3:54 PM EDT Attempted x3 to reach Andree Hummel 33 y.o. to check in on symptoms since reporting spotting at 6 weeks on 10/18. Patient briefly answered stating she was taking her son for an appointment and is not available to talk. She requested a call back at 1530. Re-attempted patient perher request, but no answer and VM box full. Sent a [employer] message to follow up/make a plan for a call. documented in this encounter Plan of Treatment Upcoming Encounters Date Type Department Care Team (Late st Contact Info) Description 05/23/2024 [place] [address] Maite Malloy MD [facility] DR OBSTETRICS [place] [address] documented as of this encounter Visit Diagnoses Not on filedocumented in this encounter Care Teams Announcer Relationship Specialty Start Date End Date Richard Rasheed MD [address] [place] [address] PCP - General Family Medicine 07/05/23 documented as of this encounter
--- OUTSIDE RECORDS SUMMARY | 2023-10-29 03:58 | XMS_ITS | Encounter Summary ---
[place] [address] Care Team Providers Care Country Sales Manager Name Role Phone OnofreMarilyn pittsadan Barton APRN Primary Care Provider [phone] Encounter Details Date Type Department Care Team (Late st Contact Info) Description 09/21/2021 Telephone [place] [address] Genet Johnston 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 Tobacco Use Types Packs/Day Years [...] encounter Miscellaneous Notes * Telephone Encounter - Genet Johnston - 09/21/2021 11:30 AM EDT Team reached out to pt to update address, upon return call please confirm current and past contact info prior to updating no left mailbox full need to update address if patient returns call documented in this encounter Plan of Treatment Upcoming Encounters Date Type Department Care Team (Late st Contact Info) Description 05/23/2024 Hospital Encounter [place] [address] Maite Malloy MD [facility] OBSTETRICS [place] [address] documented as of this encounter Visit Diagnoses Not on filedocumented in this encounter Care Teams Country Sales Manager Relationship Specialty Start Date End Date Valencia Adhikari APRN [address] [place] [address] PCP - General 04/21/14 07/04/23 documented as of this encounter
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
--- OUTSIDE RECORDS SUMMARY | 2023-10-29 03:58 | XMS_ITS | Encounter Summary ---
Author Organization [facility] Address [facility] [place] [address] Care Team Providers Care C Winforms Developer Name Role Phone OnofreMarilyn pittshryn Oralia SLADE Primary Care Provider [phone] Encounter Details Date Type Department Care Team (Late st Contact Info) Description 04/13/2023 Orders Only Obstetrics [place] [address] Jody Wood RN Vaginal bleeding in , first trimester 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 Tobacco Use Types Packs/Day Years [...] Contact Info) Description 05/23/2024 [place] [address] Maite Malloy MD [facility] DR OBSTETRICS [place] [address] Scheduled Orders Name Type Priority Associated Diagnoses Orde r Schedule Type and screen ([facility]) Lab Routine Vaginal bleeding in , first trimester Expected: 04/13/2023, Expires: 10/13/2023 documented as of this encounter Visit Diagnoses Diagnosis Vaginal bleeding in , first trimester documented in this encounter Care Teams C Winforms Developer Relationship Specialty Start Date End Date Valencia Adhikari APRN [address] [place] [address] PCP - General 04/21/14 07/04/23 documented as of this encounter
--- OUTSIDE RECORDS SUMMARY | 2023-10-29 03:58 | XMS_ITS | Encounter Summary ---
Author Organization Formerly [facility] [place] [address] Care Team Providers Care Local Hazmat Driver Name Role Phone Valencia Adhikari APRN Primary Care Provider [phone] Encounter Details Date Type Department Care Team (Latest Contact Info) Description 09/08/2021 11:00 AM EDT TH Visit (TeleHealth) Psychiatry and Behavioral Health at [facility] [place] [phone] Lisa Dickens, PhD Unspecified mood (affective) disorder; [...] Progress Notes * Lisa Dickens, PhD - 09/08/2021 11:00 AM EDT INDIVIDUAL THERAPY PROGRESS NOTE CPT CODE 32420 LOCATION: Telehealth visit. Andree SinghTamara gave permission for and was seen for today's appointment with a Telehealth visit. During this visit she was located in her apartment in [place], [place]. Andree WallisKamranTamara is aware that for any urgent matter she can can contact her regional mental health crisis services. For patients located in [place]: [email or web address] or [email or web address] . Forpatients located in [place]: [email or web address]. To reach their [facility] mental health clinician or the outpatient Department of Psychiatry clinics,patient can call [phone]. 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 We discussed patient's blah feeling and the ways that she is sometimes able to enjoy herself and other times continues to strugglewith low energy and motivation. Still has her long-term goals in mind, but currently focused on buil ding stability into her life. CLINICAL FINDINGS: PROGRESS FROM BASELINE: same as [...] and was linear and goal-directed. Mood was blah and affect was predominantly euthymic. She was [...] increase enjoyment or positive sense of self. Next Appointment: 09/15/2021 Lisa Dickens, PhD documented in this encounter Plan of Treatment Upcoming Encounters Date Type Department Care Team (Late st Contact Info) Description 05/23/2024 [place] [address] Maite Malloy MD [facility] [address] [facility] [address] documented as of this encounter Visit Diagnoses Diagnosis Unspecified mood (affective) disorder Borderline personality disorder documented in this encounter Care Teams Local Hazmat Driver Relationship Specialty Start Date End Date Valencia Adhikari APRN [address] [place] [address] PCP - General 04/21/14 07/04/23 documented as of this encounter
--- OUTSIDE RECORDS SUMMARY | 2023-10-29 03:58 | XMS_ITS | Encounter Summary ---
Author Organization Formerly [facility] Address [facility] [place] [address] Care Team Providers [facility] [employer] Rep Name Role Phone Valencia Adhikari APRN Primary Care Provider [phone] Reason for Visit * Consultation (Routine) - Closed Specialty Diagnoses / Procedures Referred By Lamont riggins Referred To Contact Gastroenterology Diagnoses Irregular bowel habits Irregular bowel habits Valencia Adhikari APRN [address] [place] [address] [facility] [address] [place] [address] Referral ID Status Reason Start Date Expiration Date V isits Requested Visits Authorized [id number] Closed Consult, Test & Treat 06/27/2021 06/27/2022 1 1 Encounter Details Date Type Department Care Team (Latest Contact Info) Description 07/14/2021 11:00 AM EDT TH Visit (TeleHealth) [place] [id number] Margarita Hector APRN [facility] [place] [address] Vitamin D deficiency; Iron deficiency anemia, unspecified iron deficiency anemia type; 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 The following orders were placed during our visit today: Orders Placed This Encounter Procedures ENDOSCOPY CASE REQUEST: EGD, UPPER GI ENDOSCOPY, COLONOSCOPY, DIAGNOSTIC C. Difficile Screen Stool Culture Screen ([facility]/P/APD/[place]) Gliadin (Deamidated) Antibodies Calprotectin, Stool Elastase, Stool *Lab orders have been faxed to [facility]* Please call the GI department to schedule the investigations if you do not hear from us within 1-2 weeks: [phone]. Endoscopy Scheduling: please call [phone] to schedule the procedures we discussed during your visit Please note: given the ongoing COVID-19 pandemic, there has been delays in the scheduling and completion of various investigative studies. We are working to improve this, and in the meantime, we appreciate your patience and cooperation. As the results come back from your various tests, I will only call you if they are abnormal (no news is good news!). Below I have included some basic information functional bowel disorders and ways you can address various GI symptoms from home. I look forward to seeing you at your next visit, Margarita Hector APRN Department of Gastroenterology and Hepatology [facility] Here is some information on the different procedures that may be ordered for you in GI: Endoscopy: this procedure is when we look at your Esophagus, stomach and beginning of small intestine called the duodenum. You will be sleepy/comfortable during this test, so you will require a ride home. We will take samples called biopsies to look for microscopic inflammation, diseases such as celiac disease/Eosinophilic esophagitis/Abraham's esophagus/etc, and you will get a letter approximately 2 weeks after your procedure letting you know the results and next steps. If we are testing for celiac disease, you will need to eat gluten foods for 6-8 weeks prior to your endoscopy. This means 3-10 grams of gluten (1 slice of bread is 2g) per day. If you do not, there can be false negative results. Colonoscopy: this procedure looks at the large intestine and the exit of your small intestine (called the ileocecal valve). Commonly, biopsies can be taken for patients having symptoms to look for inflammatory conditions such as microscopic colitis, Crohn's disease, or Ulcerative colitis. Also if the survey research center director sees any polyps, they will be removed to see what kind of polyps they are. If biopsies or polyps are taken, you will get a letter approximately 2 weeks after your procedure letting you know the results and next steps.You will be sleepy/comfortable during this test, so you will require a ride home. This procedure also involves a prep the day before so that all of the stool is removed from your colon. This is important to avoid missing small polyps. *You will be given more instruction as needed by the scheduling team or nurses prior to your tests *All results will be discussed at your follow up appointment unless I am placing an order and/or itneeds to be addressed sooner. 1) Begin citrucel daily: start at 1/2 dose x2 weeks, then slowly increase to full dose. This will increase bloating at first 2) Try peppermint capsules: they are very soothing to the GI system and can help with pain/discomfort. These can be taken as needed. Brand: Fernando or Diana Functional Bowel Disorders: Information Handout for Patients and Primary Care Providers Harsha Carrera MD, CPC + Mikey Mobley MD, HELIO Gonzalo Soto APRN + Maite Flores APRN + Margarita Hector APRN [facility] What are functional bowel disorders? These are the most common type of gastrointestinal disorders in the [place] The most common functional bowel disorder in the [place] is irritable bowel syndrome (IBS) Irritable bowel syndrome affects the lower GI tract and can cause bloating, abdominal pain, diarrhea, and constipation Functional dyspepsia (FD) affects the upper GI tract and can cause bloating, burping, heartburn, nausea, fullness and stomach discomfort In functional disorders the gut is structurally/anatomically normal but is not functioning properlydue to abnormalities in the enteric (gut) nervous system Two mechanisms - heightened sensitivity of the gut to normal sensations (sensory nerves) and abnormal gut motility (motor nerves) These disorders are caused by a combination of a genetic factors, changes to the gut microbiota (intestinal bacteria) and environmental triggers How common are these disorders and what is the impact? 15-20% of general [place] population has IBS or FD or both 2nd most common cause for lost work days (after common cold) in [place] Estimated $30 billion dollar cost to [place] economy per year These disorders can have a significant impact on quality of life How is the diagnosis made? The diagnosis of a functional disorder is NOT a ???diagnosis of exclusion?? (common misconception) Investigations may be necessary to look for other disorders (such as celiac disease) if the diagnosis is unclear Work-up may include history (description of symptoms), physical exam, bloodwork, stool studies, diagnostic imaging and endoscopy What is the prognosis? Functional bowel disorders are unfortunately chronic disorders and often have a major impact on patient quality of life, function, and relationships Symptoms may gradually resolve is a small proportion of patients (highest rate in patients with immediate onset of symptoms after infection); correction symptoms are expected in most patients however Intermittent exacerbations (i.e. ???flares?? ) are common and may be caused by stress, infections, antibiotic exposure, and lack of adherence to treatment plans When should a patient be re-evaluated? Patients with stable symptoms do NOT need episodic re-evaluation Subtle changes in symptoms and symptom flares are common Patients should be re-evaluated if they have progression or dramatic changes in symptoms, severe abdominal pain, swallowing difficulties, unexplained weight loss, anemia (low blood counts), or bleeding If you have concerns be sure to talk to your doctor What are the goals of therapy? Ultimately we hope that you to able to achieve prolonged periods of stability with minimal daily symptoms and have a decrease in the frequency/severity of ???flares?? However, we believe the most important goal is to help you improve your overall quality of life. For most patients this means doing the things that are important in your life despite having symptoms. This is generally achieved by helping you develop coping skills and helping you achieve a greater understanding of your disorder. Remember, generally complete resolution of symptoms is NOT a realistic goal. How do I use this information? Talk to you primary care provider and/or local survey research center director and share this document. Treatment of functional disorders is a team effort! Set realistic goals! Remember it is unlikely that any one measure will completely eliminate all symptoms ???Start low and go slow?? with all measures to avoid potential side effects Do ONE measure at a time - add measures as needed in a ???step-prakash fashion?? - this will help determine if a particular measure is helpful or not Stay on any measure continuously for at least 4-6 weeks prior to assessing whether or not it is helping (improvements are often slow to occur) After an adequate trial ask yourself if the benefit is worth continuing the treatment Remember there are a limited number of treatment options available. We want to be absolutely sure that a measure is not effective or intolerable before stopping it and considering other options Often patients will need several ???layers?? or ???steps?? of therapy - finding the right combination for you takes time and patience We specifically recommend all patients to do ALL lifestyle and dietary measures AND try using Metamucil (or other psyllium fiber supplement) and probiotics together - this approach benefits most patients OTC (zihr-add-rvolmzy) medications can be used for ongoing bothersome symptoms as listed below Your provider (PCP or local Gastroenterology provider or [facility] Gastroenterology provider) may decide to use prescription medications if you have ongoing symptoms despite strict adherence to lifestyle and dietary measures and OTC medications Your provider will give you advice on treatments but it is your responsibility to work on these measures to improve your symptoms. Lack of adherence to recommendations is one of the most common causefor ongoing symptoms. If symptoms are controlled try easing back or stepping down on measures - remember the main goal isto improve quality of life (not necessarily eliminate symptoms). Non-Pharmacologic General Treatments Lifestyle measures Many lifestyle factors can worsen IBS symptoms However, IBS is not caused by these factors (common misconception) These lifestyle factors include the following: Inadequate sleep Weight gain Inadequate exercise Stress Depression/anxiety - this should be brought up to your Primary Care Provider (if left untreated it is unlikely the functional bowel disorder will improve) Dietary measures Trigger food avoidance - you should re-introduce foods once symptoms settle as overly restrictive diet can be unhealthy and even harmful Fatty foods, spicy foods, alcohol, and caffeine can worsen symptoms Consider a 2 week dairy-free trial for possible lactose-intolerance Your PCP or GI provider can refer you to a dietitian to discuss specialized diets. The overall dietary goal is to allow you to have a well-balanced and nutritious diet Fiber and Fluid Adequate fiber and fluid intake is essential for optimal functioning of the human digestive tract Aim for a fluid intake goal of 8-10 glasses of water a day (caffeine and alcohol count as minus onein calculation) Aim for a fiber intake goal of 30 grams per day - some patients may require more or less Increase fiber by 5 grams per week (remember ???start low and go slow?? ) Fiber can be from multiple dietary sources but supplemental is often helpful Fiber intake should include psyllium fiber; this is the type of fiber used in research studies for treatment of functional disorders Sources of psyllium include All-Bran psyllium buds, Metamucil, Konsyl, bulk psyllium ([employer] and [employer] stores) Specifically we recommend starting Metamucil or Konsyl at a low dosage - start at one teaspoon a day for one week then gradually increase by one teaspoon per week until no further benefit is achieved. Some patients may get bloating when they start a fiber supplement. This generally goes away after 1-2 weeks of daily therapy. Try backing off to a lower dose or trying an alternate version (such as sweetener-free Metamucil) If persistent issues try Citrucel (methylcellulose) as an alternate fiber supplement Probiotics Measures aimed at improving the microbiome such as probiotics are a promising area but convincing medical evidence is still lacking Odkt-owx-okesimm supplements including probiotics are not typically evaluated by FDA. The quality and even safety is often unclear and many products (despite being very expensive) actually do not contain any active ingredients at all! Live-culture yogurts, kombucha, sauerkraut and other dietary sources may help improve your microbiome Mark, TuTalha, and Visbiome are the three probiotics that are supported by medical research to have benefit for IBS Florastor has been shown to decrease antibiotic-associated diarrhea and post- infectious diarrhea BioK Plus has been shown to decrease antibiotic-associated diarrhea and antibiotic-related infections Hnfd-mxu-Ruemrsv Medications for Functional Gut Disorders Based on Symptoms Diarrhea Loperamide (Imodium) should be considered first for mild and intermittent symptoms - start with small doses and take several hours before needed (or even before bed) (it is generally considered safe for long-term use) Constipation Patients with mild constipation can use laxatives ???as needed?? (in other words, if you feel constipated or haven't had a regular bowel movement). However, patients with more severe constipation generally need laxatives on a regular schedule (every day or every second day for example). This is called ???maintenance therapy?? . PEG 3350 (Miralax) is a stool softener that is safe for correction usage (no risk of dependency) andthe dosage can be adjusted to achieve 1-2 soft bowel movements per day; you can take a capful (17g)twice daily if needed Milk of magnesia and lactulose are alternate stool softeners that are generally safe for regular use in most patients (you should ask your provider first). Bisacodyl (Dulcolax) and senna (Senokot) are stimulant laxatives for occasional use only as they may lead to dependency with regular long-term use. Enemas and bowel preparations (e.g. Colyte or Golytely) can be used to treat severe stool impaction---- this is called ???rescue therapy?? . Drink 2 litres in 4 hours in the evening then take another 2 litres over 4 hours the next morning. Another option is to mix up 14 capfuls of Miralax with 64 oz of Gatorade. After rescue therapy immediately begin aggressive ???maintenance therapy?? with the therapies above. Bloating/Pain Ensure constipation adequately treated - impacted stool can create a partial obstruction and contribute to pain Peppermint oil may also be useful; a capsule form exists as well (IBgard) Simethicone (Gas-X) can be helpful for occasional usage for ???gas spasms?? Acetominophen (Tylenol) is safest analgesic (pain killer) on the gut NSAIDs (e.g. ibuprofen) can cause gut irritation/inflammation - it's best to avoid or use in low doses only Medical cannabis has been used to treat various chronic pain disorders; it has been reported to benefit some patients with pain but has not be rigorously studied and may actually worsen symptoms in some patients with functional disorders. At this point we generally do NOT recommend using medical cannabis to treat functional disorders AVOID narcotics/opioids as they typically make symptoms much worse and there is a risk of addictionand/or dependence Exercise, hot-water bottle/heating pad, warm bath/shower, and warm beverages are also good treatments for painful bloating episodes Heartburn/Nausea/Vomiting/Dyspepsia Acid reducing medications such as proton-pump inhibitors (PPIs) and H2 blockers may be helpful especially if you have gastroesophageal reflux disease (GERD) Often a combination of anti-nausea medications (aoto-dsz-vwhppow or prescription) works better thanhigh doses of only one medication A herbal product called STW5 (Iberogast) is supported by some studies to help dyspepsia but data onlong-term effectiveness and safety is limited L-carnitine and coenzyme Q10 supplements have been reported to be beneficial to some patients with chronic nausea and vomiting If using cannabis (recreational or medical) consider stopping for at least two weeks (ideally a full month). While cannabis has been reported to help some patients with nausea it may actually be contributing to symptoms. Disclaimer This information is intended for education purposes only It is not meant to replace direct patient-provider care All medications should be used under the supervision of a Gastroenterology provider or Primary CareProvider Authors are not liable for misuse/misinterpretation of this information Patient Resources [place] [employer] https://www.gastro.org/practice-guidance/yu-fqtmynt-sgpmcj/ topic/gqwcsycrt-vocuo-paxaratn-ibs Badgut.org https://badgut.org/information-centre/l-d-uconncxvw-topics/ibs/ AboutIBS.org https://www.aboutibs.org/ Uptodate.com https://www.uptodate.com/contents/dunawynnx-oyhlp-sysfcuqw-qxfvwr-huy-sjddcv documented in this encounter Progress Notes * Margarita Hector APRN - 07/14/2021 11:00 AM EDT [facility] TELEMEDICINE PROGRAM Chief Complaint: Andree Hummel is a 31 y.o. patient referred for consultation by for irregular bowel habits History of Present Illness: 31 y.o. female with irregular bowel habits Per chart review: -hx of thyroidectomy, on levothyroxine -hx of migraines and anxiety, asthma, insomnia -irregular bowel habits/diarrhea -recommended probiotics -pt does not want daily medication -intermittent nausea associated with stress/anxiety -uses marijuana -painful diarrhea daily; no improvement with probiotic Per patient: -thyroid levels have been inconsistent for past decade -recently saw requirements manager: low IgA when checking for celiac -celiac in uncle -sister and her have shi's -gluten free helped sister's symptoms -single mom: gluten free is challenging financially -irregular bowel movements: -diagnosed with IBS at 17: EGD/colonoscopy (polyps in colon?) BM: sometimes 5-6/day for a week, then normal daily Dorado: variable consistency but usually 5-6 Endorses steatorrhea, bloating/excess gas, abdominal pain (randomly occurs, usually periumbilical) Denies brbpr, melena, unintentional weight loss Current Regimen: Mirtazapine/effexor Past Therapies: N/a Things she has tried has not been consistent Lifestyle NSAID use: During bad menstrual cramps Caffeine/Soda/Artificial Sugar: all the time, sometimes 1, sometimes 6 Diet: tries to avoid greasy/fatty foods (worsens GI symptoms) Depression/Anxiety/Stress: anxiety and depression Social stressors with ex boyfriend and son 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 Medications: Outpatient Medications Prior to Visit Medication Sig Dispense Refill ??? mirtazapine (REMERON) 7.5 mg Tablet Take 1 tablet by mouth nightly. 30 tablet 2 ??? venlafaxine (EFFEXOR) 75 mg Tablet Take 1 tablet by mouth 3 times daily. 30 tablet 1 ??? ergocalciferoL, vitamin D2, [...] capsule by mouth daily. (Patient not taking: Reported on 08/04/2020) 30 capsule 1 ??? levothyroxine (SYNTHROID) 200 mcg Tablet take 1 tablet by mouth once daily 0 No facility-administered medications prior to visit. Allergies: is allergic to demerol [meperidine], dilaudid [hydromorphone (bulk)], and codeine. Past Medical History: has a past medical history of Anemia, Anxiety, Asthma, Back pain, Cancer (03/2011), Chlamydia (2010), Depression (02/23/2011), Hypothyroidism, Irritable bowel syndrome (2008), IUD (intrauterine device) in place (03/14/2016), Knee dislocation, Memory disorder, Migraine (02/23/2011), Neuropathy, Other and unspecified ovarian cysts (2008), Parkinsonism, Syncope and collapse, Varicella, and Vision abnormalities. Past Surgical History: has a past surgical history that includes Thyroidectomy, Malig, Ltd Neck Surg ([id number]) (03/22/2011); Somatosensory Test, Any/All Per. Nerves, Trunk Or Head ([id number]) (03/22/2011); Hubbard tooth extraction; Upper gastrointestinal endoscopy; Colonoscopy; and Tonsillectomy (2010). Family History: family history includes * in her brother; Arrhythmia in her mother; Arthritis in her paternal aunt; Asthma in her brother; Breast Cancer in her mother; Cancer in her maternal grandfather and paternal grandfather; Coronary Artery Disease in her mother; Dementia in her maternal grandmother; Lupus in her paternal aunt; Migraines in her father; Myocardial Infarction in her paternal grandmother; NOS GENETIC SYNDROMES in her sister; Parkinsonism in her father and mother; Thyroid Cancer in her paternal grandmother; Thyroid Disease in her sister. Paternal Great Aunt: ? Stomach CA Maternal Uncle: celiac disease 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: reports that she has been smoking cigarettes. She has a 2.00 pack-year smoking history. She has never used smokeless tobacco. She reports current alcohol use. She reports current druguse. Drug: Marijuana. Tobacco: /2-1 ppd Marijuana: smokes daily, variable amounts ETOH: 2 days per week Physical exam: Constitutional: well appearing, no apparent distress Eyes: conjunctiva clear without icterus, pallor, or injection ENT: Nose without external redness or drainage. Mouth with normal dentition; moist mucous membranes CV: No lower extremity peripheral edema or signs of cyanosis Respiratory: Breathing comfortably and speaking in full sentences without evident tachypnea or signs of respiratory distress GI: Abdomen non-distended and tender to self-palpation in epigastric area Skin: No visible rashes Psych: Appropriate affect. Intact thought and speech Neuro: Alert and oriented. Moving upper extremities appropriately Questionnaire: GI New Clinic Responses 08/22/2018 PHQ-9 Total Score 18 (Moderately Severe Depression) Assessment/Plan: Ms. Hummel is a 31 y.o. patient with concerns regarding low IgA when attempting celiactesting, Vit D deficiency, low Iron Saturation, low Vitamin B12 levels, and variable bowel pattern/diarrhea. PMH significant for anxiety, depression, s/p thyroidectomy. Pt reports previous EGD/[place] at [facility] in 2007 normal except for benign colon polyps: pathology report listed above. Maternal uncle has Celiac disease and sister was never tested but had improved symptoms after cutting out gluten from diet. Pt endorses 1-10 BM daily, variable consistency but predominantly diarrhea with bloating/gas, abdominal pain (variable location but usually periumbilical and epigastric), steatorrhea. Denies brbpr, melena, unintentional weight loss. Plan for EGD/colonosocpy (MAC) with biopsies to rule out Celiac/IBD/microscopic colitis. Labs to [facility], including gliadin antibodies. We discussed etiology and management for IBS-D vs celiac vs IBD: patient prefers non-pharmacologic management. Diagnostics: -EGD/colonoscopy MAC and biopsies -labs (including low IgA celiac testing): [facility], pt aware she may need to get some testing done at [facility] if not available at [facility] -consider referral to ed manager at follow up Therapeutics: -Begin Metamucil (make sure it is free of sugar and artificial sweetener): 1tsp daily for one week,then 2tsp daily for one week, then 3tsp (1TBSP) daily. May increase slowly up to 2 TBSP daily. Titrate according to what works best for you.This may cause bloating initially but this will improve with continued use. If this supplement causes too much bloating you may try Citrucel. -use imodium as needed IF LABS NEGATIVE ONLY -consider trial FODMAP diet/seeing ed manager after EGD/colo complete -can consider increasing mirtazapine dose: good for managing abdominal pain -To Be prescribed and managed by PCP: Neuromodulator therapy (to be tried for at least 90 days before adjusting dose or moving to next agent, titrate dose as needed for patient response) Step 1 Amitriptyline 10mg qHS Step 2 Nortriptyline 10mg qHS -consider trial of Rifaximin x14 days -Review AVS for recommendations on functional bowel disorders and techniques to address common GI symptoms. Trial each for at least 30 days. At the end of 30 days, if it is partially/totally effective for symptoms, keep using and try next agent. If not effective at all, stop using and try next recommendation. -continue to follow up with PCP and other healthcare providers regarding comorbid concerns -all medication refill requests should be through PCP -When to go to ER for urgent evaluation: new/severe abdominal/chest pain, fevers, inability to maintain PO hydration or manage secretions, feeling like food is stuck in chest >1-2 hours, large amounts of blood/black tarry stools, loss of consciousness, etc We discussed that complete symptom relief may not be a fully achievable goal for this chronic condition, but that improvement in quality of life, healthy days at work and family functions, and also general symptom improvement may be more reasonable goals. We discussed that treatments should be tried individually and for periods of at least 4-8 weeks to truly assess symptom response. I did my bestto answer questions to the fullest ability. We discussed that recommended treatments should be tried individually for at least three months at a time to truly assess for a meaningful response, or as long as tolerated, before changing therapy. RTC with me 2-3 weeks after EGD/colo complete The patient was located in [place] at the time of their visit. TIME SPENT WITH PATIENT Time spent reviewing records prior to this encounter on day of appointment: 5 minutes Time spent during encounter with patient including counselin minutes Time spent documenting encounter after office visit: 10 minutes Margarita Hector APRN [facility] 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 Borderline personality disorder Diarrhea, unspecified type Irritable bowel syndrome with diarrhea Irritable bowel syndrome Change in bowel habits Other symptoms involving digestive system Change in consistency of stool Steatorrhea Other specified intestinal malabsorption Periumbilical abdominal pain Abdominal pain, periumbilic Epigastric abdominal pain Abdominal pain, epigastric Family history of celiac disease Family history of other digestive disorders Gastrointestinal intolerance to foods Other specified intestinal malabsorption Marijuana use Cannabis abuse, unspecified Bloating Flatulence, eructation, and gas pain documented in this encounter Care Teams [employer] Rep Relationship Specialty Start Date End Date Valencia Adhikari APRN [address] [place] [address] PCP - General 04/21/14 07/04/23 documented as of this encounter
--- OUTSIDE RECORDS SUMMARY | 2023-10-29 03:58 | XMS_ITS | Encounter Summary ---
Author Organization [facility] Address [facility] [place] [address] Care Team Providers Care Anchorman Name Role Phone Valencia Adhikari APRN Primary Care Provider [phone] Encounter Details Date Type Department Care Team (Latest Contact Info) Description 08/18/2021 9:18 PM EDT - 08/18/2021 11:59 PM EDT Hospital [place] [phone] Substance use disorder Discharge Disposition: Home 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 Tobacco Use Types Packs/Day Years [...] AM EDT documented as of this encounter Medications at Time of Discharge Medication Sig Dispensed Refills Start Date End Date levothyroxine (SYNTHROID) 200 mcg Tablet take 1 tablet by mouth once daily 0 05/23/2017 venlafaxine (EFFEXOR-XR) 150 mg Capsule, Sust. Release 24 hr Take 1 capsule by mouth daily. 30 capsule 2 07/27/2021 mirtazapine (Remeron) 15 mg Tablet Take 1 tablet by mouth nightly. 30 tablet 1 07/27/2021 cyanocobalamin, vitamin B-12, 500 mcg Tablet Take 1 tablet by mouth daily. 100 tablet 3 05/10/2021 ferrous sulfate 324 mg (65 mg iron) Tablet, Delayed Release (E.C.) Take 1 tablet by mouth every evening. 100 tablet 05/10/2021 celecoxib (CELEBREX) 200 mg CapsuleIndications:Scap ular dyskinesis Take 1 capsule by mouth daily. 30 capsule 1 12/24/2018 ergocalciferoL, vitamin D2, (vitamin D) 50,000 unit Capsule Take 1 capsule by mouth once a week. 13 capsule 4 05/10/2021 05/10/2022 documented as of this encounter Plan of Treatment Upcoming Encounters Date Type Department Care Team (Late st Contact Info) Description 05/23/2024 Hospital Encounter [place] [phone] Maite Malloy MD [facility] OBSTETRICS [place] [address] documented as of this encounter Procedures Procedure Name Priority Date/Time Associated Diagnosis Comments OPIOIDS CONFIRMATION PANEL, URINE Routine 08/18/2021 1:30 PM EDT Substance use disorder RAPID DRUG SCREEN, COMPLIANCE MONITORING Routine 08/18/2021 1:30 PM EDT Substance use disorder HC URINE DRUG SCREEN BY INSTRUMENT Routine 08/18/2021 1:30 PM EDT Substance use disorder ALCOHOL BIOMARKERS CONFIRMATION Routine 08/18/2021 1:30 PM EDT HC [facility] ALCOHOL BIOMARKERS, URINE Routine 08/18/2021 1:30 PM EDT Substance use disorder THC (MARIJUANA), URINE, CONFIRMATION Routine 08/18/2021 1:30 PM EDT documented in this encounter Results * Alcohol Biomarkers Confirmation (08/18/2021 1:30 PM EDT) Ethyl Glucuronide Cutoff: 250 ng/mL [facility] Comment: Test Performed by: [facility] [address] [place] [address] Spice Grinder: Griffin Gustafson M.D. Ph.D.; CLIA# [id number] Ethyl Sulfate 2439 Cutoff: 100 ng/mL [facility] Comment: Test Performed by: [facility] [place] [address] Spice Grinder: Griffin Gustafson M.D. Ph.D.; CLIA# [id number] Ethyl Gluc/Sulfate Interpretation SEE COMMENTS [facility] Comment: Positive. A positive interpretation will be given if either the Ethyl Glucuronide result is > or = 250 ng/mL and/or the Ethyl Sulfate is > or = 100 ng/mL. A high positive (i.e., >1,000 ng/mL) may indicate: -Heavy drinking on the same day or previously (i.e., previous day or two). -Light drinking the same day A low positive (i.e., 500 - 1000 ng/mL) may indicate: -Previous heavy drinking (i.e., previous 1 - 3 days). -Recent light drinking (i.e., past 24 hours). -Recent intense extraneous exposure (i.e., within 24 hours or less). A very low positive (i.e., 100 - 500 ng/mL) may indicate: -Previous heavy drinking (i.e., 1-3 days) -Previous light drinking (i.e., 12 - 36 hours). -Recent extraneous exposure. ADDITIONAL INFORMATION This report is intended for use in clinical monitoring and management of patients. ??It is not intended for use in employment-related testing. This test was developed and its performance characteristics determined by [facility] in a manner consistent with CLIA requirements. This test has not been cleared or approved by the U.S. Food and Drug Administration. Test Performed by: [facility] [place] [address] Spice Grinder: Griffin Gustafson M.D. Ph.D.; CLIA# [id number] Urine 08/18/2021 1:30 PM EDT 08/19/2021 8:36 AM EDT Narrative Resulting Agency Comment Spec In Lab Jose Angel Miller MD CHEMISTRY ORDERABLES [facility] [place] [place] [address] * THC (Marijuana), Urine Confirmation (08/18/2021 1:30 PM EDT) U THC Conf Test ? Result ?Flag ??Unit ?? RefValue --- Carboxy-THC Confirmation, U ??Carboxy-THC- by GC/MS ?65 ?ng/mL ??Cutoff: 3.0 ??Carboxy-THC Interpretation ? Positive. ? --ADDITIONAL INFORMATION-------- ?This report is intended for use in clinical monitoring and ?management of patients. ??It is not intended for use in ?employment-relate d testing. ?This test was developed and its performance characteristics ?determined by [facility] in a manner consistent with CLIA ?requirements. This test has not been cleared or approved by ?the U.S. Food and Drug Administration. ?Test Performed by: ?[facility] ?[address] [place] [address] ?Spice Grinder: Griffin Gustafson M.D. Ph.D.; [facility]# [id number] [facility] Urine 08/18/2021 1:30 PM EDT 08/19/2021 8:36 AM EDT Narrative Resulting Agency Comment Spec In Lab Jose Angel Miller MD URINE ORDERABLES [facility] [place] [address] * Opioids Confirmation Panel, Urine (08/18/2021 1:30 PM EDT) Targeted Opioid Panel, Urine Test ?Result ? Flag ??Unit ?? RefValue ------- Targeted Opioid Screen, U ??List prescribed opioids ? See medication list ? ---ADDITIONAL INFORMATION------- ?Accuracy and completeness of declared medications on ?reports solely dependent on information submitted by ?client. ??Codeine ? Not Detected ? ng/mL ??Cutoff: 25 ?Tylenol 3 ??Nkodrft-0-tlsv-g lucuronide ?Not Detected ? ng/mL ??Cutoff: 100 ?Metabolite of codeine ??Morphine ?Not Detected ? ng/mL ??Cutoff: 25 ?Dana Salcedo, MS Contin; Also a minor metabolite (10%) of ?codeine and can be seen in low concentrations (<2,000 ?ng/mL) with poppy seed ingestion. ??Hjketptl-1-rokg- glucuronide ? Not Detected ? ng/mL ??Cutoff: 100 ?Metabolite of morphine ??6-monoacetylmorp brigette ?Not Detected ? ng/mL ??Cutoff: 25 ?Metabolite of heroin ??Hydrocodone ? Not Detected ? ng/mL ??Cutoff: 25 ?Lortab, [place], Vicodin; Also a very minor metabolite of ?codeine and impurity (<1%) of oxycodone. ??Norhydrocodone ?Not Detected ? ng/mL ??Cutoff: 25 ?Metabolite of hydrocodone ??Dihydrocodeine ?Not Detected ? ng/mL ??Cutoff: 25 ?Metabolite of hydrocodone ??Hydromorphone ? Not Detected ? ng/mL ??Cutoff: 25 ?Dilaudid, Exalgo; Also a metabolite of hydrocodone and a ?minor (<5%) metabolite of morphine. ??Hydromorphone-3- beta-glucuronide ?Not Detected ? ng/mL ??Cutoff: 100 ?Metabolite of hydromorphone ??Oxycodone ? Not Detected ? ng/mL ??Cutoff: 25 ?Endocet, Percocet, Oxycontin ??Noroxycodone ?Not Detected ? ng/mL ??Cutoff: 25 ?Metabolite of oxycodone ??Oxymorphone ? Not Detected ? ng/mL ??Cutoff: 25 ?Numorphan, Opana; Also a metabolite of oxycodone. ??Eqajjpbzyyi-2-es ta-glucuronide ?Not Detected ? ng/mL ??Cutoff: 100 ?Metabolite of oxymorphone and/or naloxone (nornaloxone) ??Noroxymorphone ?Not Detected ? ng/mL ??Cutoff: 25 ?Metabolite of oxymorphone and/or naloxone (nornaloxone) ??Fentanyl ?Not Detected ? ng/mL ??Cutoff: 2 ?Actiq, Duragesic, Fentora ??Norfentanyl ? Not Detected ? ng/mL ??Cutoff: 2 ?Metabolite of fentanyl ??Meperidine ?Not Detected ? ng/mL ??Cutoff: 25 ?Demerol ??Normeperidine ? Not Detected ? ng/mL ??Cutoff: 25 ?Metabolite of meperidine ??Naloxone ?Not Detected ? ng/mL ??Cutoff: 25 ?Narcan ??Ucopxuns-7-cdvn- glucuronide ? Not Detected ? ng/mL ??Cutoff: 100 ?Metabolite of naloxone ??Methadone ? Not Detected ? ng/mL ??Cutoff: 25 ?Dolophine ??EDDP ?Not Detected ? ng/mL ??Cutoff: 25 ?Metabolite of methadone ??Propoxyphene ?Not Detected ? ng/mL ??Cutoff: 25 ?Darvon, Darvocet ??Norpropoxyphene ? Not Detected ? ng/mL ??Cutoff: 25 ?Metabolite of propoxyphene ??Tramadol ?Not Detected ? ng/mL ??Cutoff: 25 ?Tradol, Ultram, Ultracet ??O-desmethyltrama dol ? Not Detected ? ng/mL ??Cutoff: 25 ?Metabolite of tramadol ??Tapentadol ?Not Detected ? ng/mL ??Cutoff: 25 ?Nucynta ??N-desmethyltapen tadol ? Not Detected ? ng/mL ??Cutoff: 50 ?Metabolite of tapentadol ??Tapentadol-beta- glucuronide ? Not Detected ? ng/mL ??Cutoff: 100 ?Metabolite of tapentadol ??Buprenorphine ? Not Detected ? ng/mL ??Cutoff: 5 ?Buprenex, Suboxone ??Norbuprenorphine ?Not Detected ? ng/mL ??Cutoff: 5 ?Metabolite of buprenorphine ??Norbuprenorphine glucuronide ?Not Detected ? ng/mL ??Cutoff: 20 ?Metabolite of buprenorphine ??Opioid Interpretation ? SEE COMMENTS ?No opioids were detected. The absence of expected drug(s) ?and/or drug metabolite(s) may indicate non-compliance, ?altered pharmacokinetics, inappropriate timing of specimen ?collection relative to drug administration, ?diluted/adultera noelle urine, or limitations of testing. ? ---ADDITIONAL INFORMATION------- ?This test was developed and its performance characteristics ?determined by [facility] in a manner consistent with CLIA ?requirements. This test has not been cleared or approved by ?the U.S. Food and Drug Administration. ?Test Performed by: ?[facility] ?[address] [place] [address] ?Spice Grinder: Griffin Gustafson M.D. Ph.D.; CLIA# [id number] [facility] Urine 08/18/2021 1:30 PM EDT 08/19/2021 8:36 AM EDT Jose Angel Miller MD URINE ORDERABLES [facility] [address] [place] [address] * (ABNORMAL) Rapid Drug Screen, Compliance Monitoring (08/18/2021 1:30 PM EDT) U Barbiturates Screen None Detected None Detected [facility] Comment: The barbiturate screen detects barbiturates at concentrations >200 ng/mL. Note: Not all barbiturates cross-react equally with antibody used in this screen. A ? Presumptive Positive? result indicates that the screening result was positive but has not yet been confirmed by a highly-specific method. As with any screen, occasional false positive results from cross-reacting substances may occur. Not for Medico-Legal Purposes. U Benzodiazepines Screen None Detected None Detected [facility] Comment: The benzodiazepines screen detects benzodiazepines at concentrations >100 ng/mL. Not all benzodiazepines cross-react equally with antibody used in this screen. Due to the low dosage of clonazepam, false negatives may be obtained due to low concentration of clonazepam metabolites. A ? Presumptive Positive? result indicates that the screening result was positive but has not yet been confirmed by a highly-specific method. As with any screen, occasional false positive results from cross-reacting substances may occur. Not for Medico-Legal Purposes. U Cocaine Screen None Detected None Detected [facility] Comment: The cocaine metabolites screen detects benzoylecgonine (Cocaine Metabolite) at concentrations >150 ng/mL. A ? Presumptive Positive? result indicates that the screening result was positive but has not yet been confirmed by a highly-specific method. As with any screen, occasional false positive results from cross-reacting substances may occur. Not for Medico-Legal Purposes. U Cannabinoid Screen Presumptive Pos(A) None Detected [facility] Comment: The marijuana metabolites screen detects the THC metabolite (69-rst-5-carboxy-delta 9-THC) at concentrations >20 ng/mL. A ? Presumptive Positive? result indicates that the screening result was positive but has not yet been confirmed by a highly-specific method. As with any screen, occasional false positive results from cross-reacting substances may occur. Not for Medico-Legal Purposes. U Tricyclics Screen None Detected None Detected [facility] Comment: The tricyclics screen detects tricyclic antidepressants at concentrations >150 ng/mL. Not all tricyclics cross-react equally with the antibody used in this screen. A ? Presumptive Positive? result indicates that the screening result was positive but has not yet been confirmed by a highly-specific method. As with any screen, occasional false positive results from cross-reacting substances may occur. Not for Medico-Legal Purposes. U Ethanol Screen None Detected None Detected [facility] Comment:This urine ethanol a ssay detects ethanol at concentrations >/= 100 mg/L. U Amphetamines Screen None Detected None Detected [facility] Comment: The amphetamine screen detects d-amphetamine and d-methamphetamine at concentrations >300 ng/mL. A ? Presumptive Positive? result indicates that the screening result was positive but has not yet been confirmed by a highly-specific method. As with any screen, occasional false positive results from cross-reacting substances may occur. Not for Medico-Legal Purposes. U Adulterants Screen None Detected None Detected [facility] Comment: No adulteration or dilution of this urine sample was detected. All urine samples submitted for urine drugs of abuse analysis are tested for creatinine concentration, pH, and for the presence of oxidants, nitrites, and chromate. Urine 08/18/2021 1:30 PM EDT 08/18/2021 9:33 PM EDT Narrative Resulting Agency Comment Spec In Lab Jose Angel Miller MD URINE ORDERABLES Performing Organization Address [facility]/ZIP Co de Phone Number [facility] [place] [address] * (ABNORMAL) Alcohol Biomarkers (08/18/2021 1:30 PM EDT) Alcohol Biomarkers SEE COMMENT(A ) Cutoff: 500 ng/mL [facility] Comment: RESULT: Presumptive Positive Drug confirmation to follow. ??Presumptive Positive means that the screening method is positive, but the test needs to be run by a confirmatory method. ADDITIONAL INFORMATION This test was developed and its performance characteristics determined by [facility] in a manner consistent with CLIA requirements. This test has not been cleared or approved by the U.S. Food and Drug Administration. Test Performed by: [facility] [place] [address] Spice Grinder: Griffin Gustafson M.D. Ph.D.; CLIA# [id number] Urine 08/18/2021 1:30 PM EDT 08/19/2021 8:36 AM EDT Narrative Resulting Agency Comment Spec In Lab Jose Angel Miller MD CHEMISTRY ORDERABLES Performing Organization Address City/[facility]/ZIP Co de Phone Number [facility] [place] [place] [address] documented in this encounter Visit Diagnoses Diagnosis Substance use disorder documented in this encounter Care Teams Anchorman Relationship Specialty Start Date End Date Valencia Adhikari APRN [address] [place] [address] PCP - General 04/21/14 07/04/23 documented as of this encounter
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
--- OUTSIDE RECORDS SUMMARY | 2023-10-29 03:58 | XMS_ITS | Encounter Summary ---
[place] [address] Care Team Providers Care Mailing Section Clerk Name Role Phone OnofreMarilynValencia Oralia SLADE Primary Care Provider [phone] [phone] Encounter Details Date Type Department Care Team (Late st Contact Info) Description 11/21/2021 Telephone [place] [address] Magalie Pinon 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 Tobacco [...] * Telephone Encounter - Magalie Pinon - 11/21/2021 8:10 AM EDT Inbound/Outbound: OUT Spoke to Patient/Left Message: could not leave a vm, mailbox is full Notes: (RUSLAN List) sending a letter Return calls can be handled by: Any Procedure Reed Or Wind Instrument Repairer documented in this encounter Plan of Treatment Upcoming Encounters Date Type Department Care Team (Late st Contact Info) Description 05/23/2024 Hospital [place] [address] aMite Malloy MD [facility] OBSTETRICS [place] [address] documented as of this encounter Visit Diagnoses Not on filedocumented in this encounter Care Teams Mailing Section Clerk Relationship Specialty Start Date End Date Valencia Adhikari APRN [address] [place] [address] PCP - General 04/21/14 07/04/23 documented as of this encounter
--- OUTSIDE RECORDS SUMMARY | 2023-10-29 03:58 | XMS_ITS | Encounter Summary ---
Author Organization [facility] [place] [address] Care Team Providers Care Secondary Education Professor Name Role Phone Onofre Valenciaadan Barton APRN Primary Care Provider [phone] [phone] Encounter Details Date Type Department Care Team (Late st Contact Info) Description 10/10/2021 Telephone [place] [address] Peg Cast 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 Tobacco [...] * Telephone Encounter - Peg Cast - 10/10/2021 2:14 PM EDT Called pt to sched EGD/COLO w/1st avail provider; APD ok-had to lvm documented in this encounter Plan of Treatment Upcoming Encounters Date Type Department Care Team (Late st Contact Info) Description 05/23/2024 [place] [address] Maite Malloy MD [facility] OBSTETRICS [place] [address] documented as of this encounter Visit Diagnoses Not on filedocumented in this encounter Care Teams Secondary Education Professor Relationship Specialty Start Date End Date Valencia Adhikari APRN [address] [place] [address] PCP - General 04/21/14 07/04/23 documented as of this encounter
--- OUTSIDE RECORDS SUMMARY | 2023-10-29 03:58 | XMS_ITS | Encounter Summary ---
[place] [address] Care Team Providers Care Grant Officer Name Role Phone Valencia Adhikari APRN Primary Care Provider [phone] Reason for Referral * Consultation (Routine) - Closed Specialty Diagnoses / Procedures Referred By Lamont riggins Referred To Contact Gastroenterology Diagnoses Irregular bowel habits Irregular bowel habits Valencia Adhikari APRN [address] [place] [address] [facility] [place] [address] Referral ID Status Reason Start Date Expiration Date V isits Requested Visits Authorized [id number] Closed Consult, Test & Treat 06/27/2021 06/27/2022 1 1 Encounter Details Date Type Department Care Team (Latest Contact Info) Description 06/27/2021 Transcribe Orders eDH Incoming Referrals [phone] Valencia Adhikari APRN [address] [place] [address] Irregular bowel habits 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 Tobacco Use Types Packs/Day Years [...] Info) Description 05/23/2024 Hospital [place] [address] Maite Malloy MD [facility] [address] OBST[place] [address] Scheduled Referrals Name Type Priority Associated Diagnoses Order Schedule Referral to Gastroenterology Outpatient Referral Routine Irregular bowel habits Ordered: 06/27/2021 documented as of this encounter Visit Diagnoses Diagnosis Irregular bowel habits Other specified disorder of intestines documented in this encounter Care Teams Grant Officer Relationship Specialty Start Date End Date Valencia Adhikari APRN [address] [place] [address] PCP - General 04/21/14 07/04/23 documented as of this encounter
--- OUTSIDE RECORDS SUMMARY | 2023-10-29 03:59 | XMS_ITS | Encounter Summary ---
[place] [address] Care Team Providers Care Insurance Salesman Name Role Phone Valencia Adhikari APRN Primary Care Provider [phone] Encounter Details Date Type Department Care Team (Late st Contact Info) Description 05/11/2020 Telephone Psychiatry [place] [phone] Sary Harris 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 Tobacco Use Types Packs/Day Years Used Date Smoking Tobacco: Former Cigarettes 0.5 4 0 10/01/2012 - 10/01/2016 Smokeless Tobacco: Never Alcohol Use Standard Drinks/Week Comments Yes 0 (1 standard drink = 0.6 oz pur e alcohol) socially Sex and Gender Information Value Date Recorded Sex Assigned at Female 10/12/2023 9:44 AM EDT Gender Identity Female 10/12/2023 9:44 AM EDT Sexual Orientation Straight 10/12/2023 9: 44 AM EDT documented as of this encounter Miscellaneous Notes * Telephone Encounter - Sary Reeves - 05/11/2020 10:56 AM EST Called to offer patient an appointment this week with Lisa Dickens. Patient didn't answer and unableto leave a message due to mailbox being full. I will try again this afternoon. documented in this encounter Plan of Treatment Upcoming Encounters Date Type Department Care Team (Late st Contact Info) Description 05/23/2024 Hospital [place] [address] Maite Malloy MD [facility] OBSTETRICS [place] [address] documented as of this encounter Visit Diagnoses Not on filedocumented in this encounter Care Teams Insurance Salesman Relationship Specialty Start Date End Date Valencia Adhikari APRN [address] [place] [address] PCP - General 04/21/14 07/04/23 documented as of this encounter
--- OUTSIDE RECORDS SUMMARY | 2023-10-29 03:59 | XMS_ITS | Encounter Summary ---
Author Organization [facility] Address [facility] [place] [address] Care Team Providers Care Machine Tool Builder Name Role Phone OnofreMarilyn pittshrryan Barton BERLIN Primary Care Provider [phone] Reason for Visit * Reason Onset Date Comments Medication Refill 03/19/2020 Encounter Details Date Type Department Care Team (Late st Contact Info) Description 03/19/2020 Refill Psychiatry and [place] [address] Crispin Fuller MD [facility] [place] [address] Depression, unspecified depression type; Anxiety 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 Tobacco Use Types Packs/Day Years [...] Contact Info) Description 05/23/2024 [place] [address] Maite Malloy MD [facility] OBSTETRICS AND GYNECOLOGY [place], [place] [id number] documented as of this encounter Visit Diagnoses Diagnosis Depression, unspecified depression type Anxiety Anxiety state, unspecified documented in this encounter Care Teams Machine Tool Builder Relationship Specialty Start Date End Date Valencia Adhikari APRN [address] [place] [address] PCP - General 04/21/14 07/04/23 documented as of this encounter
--- OUTSIDE RECORDS SUMMARY | 2023-10-29 03:59 | XMS_ITS | Encounter Summary ---
Author Organization [facility] [place] [address] Care Team Providers Care Upholstery Covers Inspector Name Role Phone Valencia Adhikari APRN Primary Care Provider [phone] Encounter Details Date Type Department Care Team (Latest Contact Info) Description 05/02/2021 3:00 PM EST TH Visit (TeleHealth) Psychiatry and Behavioral Health at [facility] [place] [phone] Lisa Dickens, PhD Borderline personality disorder; Unspecified [...] Progress Notes * Lisa Dickens, PhD - 05/02/2021 3:00 PM EST INDIVIDUAL THERAPY PROGRESS NOTE CPT CODE 77478 LOCATION: Telephone office visit. Andree Artislliams gave permission for and was seen for today's appointment with a Telephone office visit. During this visit she was located in her apartment in [place], [place]. Andree WallisKamranTamara is aware that for any urgent matter she can can contact her regional mental health crisis services. For patients located in [place]: www.[employer] Trader or text/call . For patients located in [place]: [email or web address]. To reach their [facility] mental health clinician or the outpatient Department of Psychiatry clinics, patient can call [phone]. SESSION DURATION: 30 minutes ATTENDEES: Patient PRIMARY COMPLAINT/DIAGNOSIS: Borderline Personality Disorder; Unspecified Mood Disorder TREATMENT MODALITY: DBT PATIENT REPORT OF CURRENT FUNCTIONING/CHANGES: Patient reported: -I'm not okay, nothing new is happening but she feels completely out of control, when that overwhelmed has thoughts about getting drunk/high/cutting her hair/breaking something -family told her to get over the conflict around their judgment over her parenting, upset that they are still manipulating the situation -feels manic-y no energy and still unable to sit still, can't fall asleep until 8-9AM and sleeps until 1PM, finds herself cleaning the house at 4AM, wants to get things done but feels overwhelmed and doesn't know where to start -if things were better, she would be able to sit and chill and play a game with her kid instead of feeling like she is going to blow a fuse -PCP is saying they won't prescribe her psychiatric meds any more, when she call Psych Dept we toldher she would be coming back as a new patient after having been gone so long, may have to wait 6 months -dealing with health issues related to thyroid, vitamin D deficiency, possible Celiac -had to end session early to take son to basketball CENTRAL THEME OF SESSION: Distress Tolerance IN-SESSION PROCEDURES: I provided empathic listening and validation. We discussed patient's intenseemotions and her hard work to try to manage those emotions as well as feeling judged by the people around her, including her providers. I brought up the distress tolerance skills, particularly the TIPP skills as a way to respond to her feelings of being in a crisis. We identified the steps she can take for the things she is in control of (e.g., calling to make an appt with a psychiatrist) and howwe can work on problem-solving strategies together. I asked about her sobriety and she shared her focus on staying sober for her son and doing things like cleaning to distract herself. Patient also shared getting support from her best friend. CLINICAL FINDINGS: PROGRESS FROM BASELINE: same as [...] auditory or visual hallucinations ASSESSMENT/OBSERVATIONS: Patient arrived at the appointment on time and unaccompanied. Patient was casually dressed and adequately groomed. She smoked an e-cigarette during the session. Speech was normal in rate, rhythm, volume, and tone and was linear and goal-directed. Mood was not okay and affect was predominantly euthymic; full range, with variation as was [...] the initial session. Patient indicated that she does not have regular SI. Most recently, she had passive SI (wish I didn't have todeal with this) about two weeks ago. She has no recent plans and no [...] text line and national hotline number. Homework: Try using Distress Tolerance Skills when feeling overwhelmed. Next Appointment: 05/09/2021 Lisa Dickens, PhD documented in this encounter Plan of Treatment Upcoming Encounters Date Type Department Care Team (Late st Contact Info) Description 05/23/2024 [place] [address] Maite Malloy MD [facility] [place] [address] documented as of this encounter Visit Diagnoses Diagnosis Borderline personality disorder Unspecified mood (affective) disorder documented in this encounter Care Teams Upholstery Covers Inspector Relationship Specialty Start Date End Date Valencia Adhikari APRN [address] [place] [address] PCP - General 04/21/14 07/04/23 documented as of this encounter
--- OUTSIDE RECORDS SUMMARY | 2023-10-29 03:59 | XMS_ITS | Encounter Summary ---
Author Organization [facility] [place] [address] Care Team Providers Care Assistant Maintenance Manager Name Role Phone Valencia Adhikari APRN Primary Care Provider [phone] Reason for Visit * Reason Comments Establish Care Encounter Details Date Type Department Care Team (Late st Contact Info) Description 08/04/2020 10:00 AM EDT Office Visit Obstetrics [place] [phone] Malena Hernandez APRN [facility] [address] OBSTETRICS & [place] [address] Encounter for IUD removal (Primary Dx); Screening for cervical cancer; IUD (intrauterine device) in place 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 Tobacco Use Types Packs/Day Years [...] Sign Reading Time Taken Comments Blood Pressure 136/87 08/04/2020 10:16 AM EDT Pulse 88 08/04/2020 10:16 AM EDT Temperature 36.8 ??C (98.2 ??F) 08/04/2020 10:16 AM E DT Respiratory Rate 16 08/04/2020 10:16 AM EDT Oxygen Saturation 99% 08/04/2020 10:16 AM EDT Inhaled Oxygen Concentration - - Weight 104.8 kg (231 lb) 08/04/2020 10:16 AM EDT Height 172.7 cm (5' 8) 08/04/2020 10:16 AM EDT Body Mass Index 35.12 08/04/2020 10:16 AM EDT documented in this encounter Progress Notes * Malena Hernandez, BERLIN - 08/04/2020 10:00 AM EDT REASON FOR VISIT: IUD Removal Subjective: Andree Hummel is a 30 y.o. female who is here today to have her Mirena IUD removed. It was placed in late 2015. She plans to use condom for contraception now. She and her boyfriend are talking about conception. Pap: 2010? Patient Active Problem List Diagnosis Date Noted ??? Borderline personality disorder 07/15/2020 ??? Scapular dyskinesis 10/15/2017 ??? Biceps tendinitis, left 07/05/2017 ??? Chronic left shoulder pain 02/06/2017 ??? IUD (intrauterine device) in place 03/14/2016 ??? Intractable chronic migraine without aura 12/21/2015 ??? Left knee pain 04/21/2014 ? ? 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 Unspecified mood (affective) disorder 02/23/2011 Past Medical History: Diagnosis Date ??? Anemia not on meds ??? Anxiety sees therapist ??? Asthma Triggers are cold, exercise. Used steroids with episodes of bronchitis.. Asymptomatic for a year Intubated once when 18 months with bronchiolitis ??? Back pain ??? Cancer 03/2011 THYROID ??? Chlamydia 2010 ??? Depression 02/23/2011 not on meds or in counseling ??? Hypothyroidism ??? Irritable bowel syndrome 2009 ulcers ??? Knee dislocation bilateral, multiple events ??? Memory disorder ??? Migraine 02/23/2011 None in 3-4 years ??? Neuropathy ??? Other and unspecified ovarian cysts 2009 ??? Parkinsonism ??? Syncope and collapse ??? Varicella ??? Vision abnormalities Past Surgical History: Procedure Laterality Date ??? COLONOSCOPY found polyps ??? PRG SOMATOSENSORY TEST, ANY/ALL PER. NERVES, TRUNK OR HEAD 03/22/2011 FACIAL NERVE MONITORING, SETUP performed by JUAN ESPARZA at [facility] MAIN OR ??? PRO THYROIDECTOMY, IVA STAFFORD NECK SURG 03/22/2011 THYROIDECTOMY, FOR MALIGNANCY, LIMITED NECK DISSECTION performed by JUAN ESPARZA at [facility] MAIN OR ??? TONSILLECTOMY 2010 ??? UPPER GASTROINTESTINAL ENDOSCOPY for IBS, celiac excluded ??? WISDOM TOOTH EXTRACTION Outpatient Medications Marked as Taking for the 08/04/20 encounter (Office Visit) with Malena Hernandez APRN Medication Sig Dispense Refill ??? LORazepam (Ativan) 0.5 mg Tablet Take 1 tablet by mouth 3 times daily as needed for Anxiety. 90tablet 0 ??? mirtazapine (REMERON) 7.5 mg Tablet Take 2 tablets by mouth nightly. 30 tablet 2 ??? venlafaxine (EFFEXOR-XR) 150 mg Capsule, Sust. Release 24 hr Take 2 capsules by mouth daily. 60capsule 3 ??? lamoTRIgine (LaMICtal) 150 mg Tablet Take 2 tablets by mouth daily. 60 tablet 3 ??? lidocaine (LIDODERM) 5 % Adhesive Patch, Medicated Apply 1 patch onto the skin daily. (leave onfor 12 hours and remove for 12 hours) 30 patch 2 ??? levothyroxine (SYNTHROID) 200 mcg Tablet take 1 tablet by mouth once daily 0 ??? levonorgestrel (MIRENA) 20 mcg/24 hr (5 years) IUD 1 each by Intrauterine route once. Indications: inserted 03/14/2016 Allergies Allergen Reactions ??? Demerol [Meperidine] Anaphylaxis ??? Dilaudid [Hydromorphone (Bulk)] Hives ROS: See HPI, all others negative. Objective: BP 136/87 Pulse 88 Temp 36.8 ??C (98.2 ??F) (Temporal) Resp 16 Ht 172.7 cm (5' 8) Wt 104.8 kg (231 lb) LMP (LMP Unknown) SpO2 99% BMI 35.12 kg/m?? General: Appears healthy and well nourished. No apparent distress. Procedure: Prior to the start of this procedure, I confirmed the patient's identity, intended procedure and availability of equipment needed. Cervix visualized w/ speculum in place. Strings visible at the os. IUD removed with gentle tractionusing a ring forcep. The IUD is intact and this is shown to Andree before discarding. Pt tolerated the removal well. Assessment/Plan: Andree Hummel is a 30 y.o. female who presented for Mirena IUD removal. Pap and GCCT collected. IUD removal ??? Mirena IUD removed with no complications. ??? Andree Hummel tolerates the removal well. ??? Plans to use condoms. Encouraged PNV if TTC. -RTC for annual exam and PRN. Malena Hernandez APRN 08/04/2020 documented in this encounter Plan of Treatment Upcoming Encounters Date Type Department Care Team (Late st Contact Info) Description 05/23/2024 [place] [address] Maite Malloy MD [facility] DR OBSTETRICS [place] [address] documented as of this encounter Procedures Procedure Name Priority Date/Time Associated Diagnosis Comments CT/NG PCR Routine 08/04/2020 10:25 AM EDT CONTRACTS MANAGER CYTOLOGY INTERPRETATION Routine 08/04/2020 10:25 AM EDT CONTRACTS MANAGER CYTOLOGY FINAL REPORT Routine 08/04/2020 10:25 AM EDT CYTOPATHOLOGY GYNECOLOGICAL Routine 08/04/2020 10:25 AM EDT Screening for cervical cancer documented in this encounter Results * CONTRACTS MANAGER Cytology Interpretation (08/04/2020 10:25 AM EDT) Financial Risk Manager Cytology Interpretation [facility] Comment:Financial Risk Manager Cytology Final R eport Endocervical Component Present [facility] AP Specimen 08/04/2020 10:2 5 AM EDT 08/16/2020 12:02 PM EDT Malena Mary CLINICAL PHARMACY MANAGER PATHOLOGY/CYT OLOGY ORDERABLES [facility] [place] [address] * Financial Risk Manager Cytology Final Report (08/04/2020 10:25 AM EDT) Financial Risk Manager Cytology Final Report [id number] ? Location: 5L The signing pathologist has (i) examined the relevant preparation(s) for the specimen(s) and (ii) rendered or confirmed the diagnosis(es). . ? Financial Risk Manager Final DIAGNOSIS Infection and/or Reactive Repair Process Note: Reactive changes are present in the epithelial cells (benign cellular changes). This Pap test is negative for intraepithelial lesion or malignancy. (NILM) For consensus guidelines for the management of cervical cancer screening test results, please see: ?? http://www.asccp.o rg . Electronically signed by: ?Reji Sandoval MD Verified: ??08/16/2020 12:02 ??Cytopathologist Performed at: ??-[facility] Dept. of Pathology, [place], [place] HPV RESULTS HPV testing either not indicated or not requested by clinician. STATEMENT OF ADEQUACY Specimen submitted is satisfactory. Endocervical component present. CLINICAL INFORMATION HPV Option: ?Reflex HPV CT/NG Option: ?Yes Preparation: ? Liquid based Pap Specimen Source: ? Cervical/Endocervi shira LMP: ? IUD Hysterectomy: ?No : ?No : ?No I.U.D.: ?No Pelvic Radiation: ?No Hist Abnl Pap/Biopsy: ?No Prior CONTRACTS MANAGER Therapy: ? No Hist of HPV Vaccine: ? No ICD Diagnosis: ? Z12.4 Encounter for screening for malignant neoplasm of cervix Clinical Data, Significant Therapy and Clinical Impression ?? : ?_ This Pap Test has been evaluated with the assistance of the [employer] Pap Test Imaging System. Note: The Pap test is a screening test for cervical cancer with an inherent false-negative rate dependent upon several variables. For further information please contact the [facility] Laboratory. Reference: Rosy ORTIZ. Sleeve Presser Operator of Pap Smear Results. In: Chelsey BS, Joshua TAYLOR, ed. The Pap Smear. [place]: Lázaro, 2002: 71-77. [facility] 08/04/2020 10:2 5 AM EDT Malena Hernandez APRN PATHOLOGY/CYT OLOGY ORDERABLES [facility] [place] [address] * CT/NG PCR (08/04/2020 10:25 AM EDT) Chlamydia Gene Amp Negative Negative [facility] Comment: This assay was performed in the [facility] Clinical Genomics and Advanced Technology Laboratory using the melly?? CT/NG v2.0 Test ([employer] The melly?? CT/NG v2.0 Test is an in vitro diagnostic test for the qualitative detection of Chlamydia trachomatis (CT) and/or Neisseria gonorrhoeae (NG) DNA in urogenital specimens. The Test utilizes the Polymerase Chain Reaction (PCR) for the detection of Chlamydia trachomatis and Neisseria gonorrhoeae DNA in cervical specimens collected in PreservCyt?? solution. This test is intended as an aid in the diagnosis of chlamydial and gonococcal disease in both symptomatic and asymptomatic individuals. GC Gene Amp Negative Negative [facility] Comment: This assay was performed in the [facility] Clinical Genomics and Advanced Technology Laboratory using the melly?? CT/NG v2.0 Test ([employer] The melly?? CT/NG v2.0 Test is an in vitro diagnostic test for the qualitative detection of Chlamydia trachomatis (CT) and/or Neisseria gonorrhoeae (NG) DNA in urogenital specimens. The Test utilizes the Polymerase Chain Reaction (PCR) for the detection of Chlamydia trachomatis and Neisseria gonorrhoeae DNA in cervical specimens collected in PreservCyt?? solution. This test is intended as an aid in the diagnosis of chlamydial and gonococcal disease in both symptomatic and asymptomatic individuals. Cervical swab (specimen) 08/04/2020 10:25 AM EDT 08/05/2020 1:29 PM EDT Narrative Resulting Agency Comment Spec In Lab Malena Hernandez APRN MICROBIOLOGY - GENERAL ORDERABLES Performing Organization Address City/[facility]/ZIP Co de Phone Number [facility] [place] [address] * Cytopathology Gynecological (08/04/2020 10:25 AM EDT) AP Specimen 08/04/2020 10:2 5 AM EDT 08/04/2020 10:25 AM EDT Narrative [facility] - 08/04/2020 10:25 AM EDT Specimen requisition ordered. ??Separate Pathology report to follow Malena Hernandez APRN PATHOLOGY/CYT OLOGY ORDERABLES [facility] [place] [address] documented in this encounter Visit Diagnoses Diagnosis Encounter for IUD removal- Primary Encounter for removal of intrauterine contraceptive device Screening for cervical cancer Screening for malignant neoplasm of the cervix IUD (intrauterine device) in place Presence of intrauterine contraceptive device documented in this encounter Care Teams Assistant Maintenance Manager Relationship Specialty Start Date End Date Valencia Adhikari APRN [address] [place] [address] PCP - General 04/21/14 07/04/23 documented as of this encounter
--- OUTSIDE RECORDS SUMMARY | 2023-10-29 03:59 | XMS_ITS | Encounter Summary ---
Author Organization [facility] [place] [address] Care Team Providers Care Boring Machine Operator Double End Name Role Phone OnofreValencia pitts Oralia SLADE Primary Care Provider [phone] Encounter Details Date Type Department Care Team (Late st Contact Info) Description 10/03/2018 Orders Only Psychiatry [place] [phone] Argelia Mccray APRN [facility] [place] [address] Anxiety 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 Tobacco Use Types Packs/Day [...] [place] [address] Maite Malloy MD [facility] OBSTETRICS [place] [address] documented as of this encounter Visit Diagnoses Diagnosis Anxiety Anxiety state, unspecified documented in this encounter Care Teams Boring Machine Operator Double End Relationship Specialty Start Date End Date Valencia Adhikari APRN [address] [place] [address] PCP - General 04/21/14 07/04/23 documented as of this encounter
--- OUTSIDE RECORDS SUMMARY | 2023-10-29 03:59 | XMS_ITS | Encounter Summary ---
Author Organization [facility] Address [facility] [place] [address] Care Team Providers Care Journeyman Mechanic Name Role Phone Richard Rasheed MD Primary Care Provider [phone] Reason for Visit * Reason Onset Date Comments Medication Refill 09/02/2018 Encounter Details Date Type Department Care Team (Late st Contact Info) Description 09/02/2018 Refill Psychiatry [place] [address] Argelia Mccray APRN [facility] [place] [address] Anxiety 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 Tobacco Use Types Packs/Day [...] Info) Description 05/23/2024 Hospital [place] [address] Maite Malloy MD [facility] OBSTETRICS AND [place] [address] documented as of this encounter Visit Diagnoses Diagnosis Anxiety Anxiety state, unspecified documented in this encounter Care Teams Journeyman Mechanic Relationship Specialty Start Date End Date Richard Rasheed MD [address] [place] [id number] PCP - General Family Medicine 07/05/23 documented as of this encounter
--- OUTSIDE RECORDS SUMMARY | 2023-10-29 03:59 | XMS_ITS | Encounter Summary ---
Author Organization [facility] [place] [address] Care Team Providers Care Hi Ranger Operator Name Role Phone Valencia Adhikari APRN Primary Care Provider [phone] Encounter Details Date Type Department Care Team (Latest Contact Info) Description 06/06/2021 3:00 PM EST TH Visit (TeleHealth) Psychiatry and Behavioral Health at [facility] [place] [phone] Lisa Dickens, PhD Borderline personality disorder; Unspecified [...] Progress Notes * Lisa Dickens, PhD - 06/06/2021 3:00 PM EST INDIVIDUAL THERAPY PROGRESS NOTE CPT CODE 47942 LOCATION: Telehealth visit. Andree Artislliams gave permission for and was seen for today's appointment with a Telehealth visit. During this visit she was located in her apartment in [place], [place]. Andree WallisKamranTamara is aware that for any urgent matter she can can contact her regional mental health crisis services. For patients located in [place]: [email or web address] or text/call . Forpatients located in [place]: [email or web address]. To reach their [facility] mental health clinician or the outpatient Department of Psychiatry clinics,patient can call [phone]. SESSION DURATION: 17 minutes ATTENDEES: Patient PRIMARY COMPLAINT/DIAGNOSIS: Borderline Personality Disorder; Unspecified Mood Disorder TREATMENT MODALITY: DBT PATIENT REPORT OF CURRENT FUNCTIONING/CHANGES: Patient reported: -son is off of school and it is nice to have time together -parents cleaned her house last week, appreciated it but felt shame that they had to help with the cleaning -had to end session after less than 20 minutes as she had to orange picker her son CENTRAL THEME OF SESSION: Cognitive Skills IN-SESSION PROCEDURES: I provided empathic listening and validation. I asked about the thoughts andfeelings she had in response to her parents helping clean her home and together we explored whetherthose thoughts are helpful and how she can challenge them. We also discussed the benefits of increasing awareness of unhelpful thoughts. CLINICAL FINDINGS: PROGRESS FROM BASELINE: same as [...] and was linear and goal-directed. Mood was alright and affect was dysthymic; full range, with variation as was appropriate to session content. She was oriented to person, place and time. Insight and judgment were good. There were no hallucinations in any sensory modality. No delusions wereelicited. PLAN: Patient will attend weekly individual DBT [...] in the agreed upon activities. Next Appointment: 06/13/2021 Lisa Dickens, PhD documented in this encounter Plan of Treatment Upcoming Encounters Date Type Department Care Team (Late st Contact Info) Description 05/23/2024 Hospital [place] [phone] Maite Malloy MD [facility] [address] [place] [address] documented as of this encounter Visit Diagnoses Diagnosis Borderline personality disorder Unspecified mood (affective) disorder documented in this encounter Care Teams Hi Ranger Operator Relationship Specialty Start Date End Date Valencia Adhikari APRN [address] [place] [address] PCP - General 04/21/14 07/04/23 documented as of this encounter
--- OUTSIDE RECORDS SUMMARY | 2023-10-29 03:59 | XMS_ITS | Encounter Summary ---
Author Organization [facility] Address [facility] [place] [address] Care Team Providers Care Tinsmith Helper Name Role Phone OnofreMarilyn pittshryn Oralia SLADE Primary Care Provider [phone] Reason for Visit * Reason Onset Date Comments Medication Refill 2020 Encounter Details Date Type Department Care Team (Late st Contact Info) Description 2020 Refill Psychiatry [place] [address] Crispin Fuller MD [facility] [place] [address] Anxiety 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 Tobacco Use Types Packs/Day [...] Info) Description 05/23/2024 Hospital [place] [address] Maite Malloy MD [facility] [place]ST[place] [address] documented as of this encounter Visit Diagnoses Diagnosis Anxiety Anxiety state, unspecified documented in this encounter Care Teams Tinsmith Helper Relationship Specialty Start Date End Date Valencia Adhikari APRN [address] [place] [address] PCP - General 04/21/14 07/04/23 documented as of this encounter
--- OUTSIDE RECORDS SUMMARY | 2023-10-29 03:59 | XMS_ITS | Encounter Summary ---
Author Organization [facility] [place] [address] Care Team Providers Care Regional Cra Name Role Phone Valencia Adhikari APRN Primary Care Provider [phone] Encounter Details Date Type Department Care Team (Late st Contact Info) Description 05/23/2021 Telephone Psychiatry [place] [phone] Lisa Dickens, PhD 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 Tobacco Use Types Packs/Day Years [...] encounter Miscellaneous Notes * Telephone Encounter - Lisa Dickens, PhD - 05/23/2021 3:13 PM EST Length of Call: < 5 minutes Reason for Call: Patient did not arrive for scheduled Video Visit. Outcome: I attempted to reach patient on her mobile phone. I was unable to reach her and could not leave a message as her voicemail was full. Diagnosis: Borderline Personality Disorder; Unspecified Mood Disorder Plan: Patient's next scheduled appointment is 05/30/2021. documented in this encounter Plan of Treatment Upcoming Encounters Date Type Department Care Team (Late st Contact Info) Description 05/23/2024 Hospital Encounter Birthing [facility] [place] [address] Maite Malloy MD [facility] DR OBSTETRICS [place] [address] documented as of this encounter Visit Diagnoses Diagnosis Borderline personality disorder Unspecified mood (affective) disorder documented in this encounter Care Teams Regional Cra Relationship Specialty Start Date End Date Valencia Adhikari APRN [address] [place] [address] PCP - General 04/21/14 07/04/23 documented as of this encounter
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
--- OUTSIDE RECORDS SUMMARY | 2023-10-29 03:59 | XMS_ITS | Encounter Summary ---
Author Organization [facility] Address [facility] [place] [address] Care Team Providers Care Agricultural Sciences Professor Name Role Phone Valencia Adhikari APRN Primary Care Provider [phone] Encounter Details Date Type Department Care Team (Late st Contact Info) Description 03/14/2021 Telephone Psychiatry [place] [phone] Mary Bateman 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 Tobacco Use Types Packs/Day Years [...] Info) Description 05/23/2024 Hospital [place] [phone] Maite Malloy MD [facility] [address] OBSTETRICS [place] [address] documented as of this encounter Visit Diagnoses Not on filedocumented in this encounter Care Teams Agricultural Sciences Professor Relationship Specialty Start Date End Date Valencia Adhikari APRN [address] [place] [address] PCP - General 04/21/14 07/04/23 documented as of this encounter
--- OUTSIDE RECORDS SUMMARY | 2023-10-29 03:59 | XMS_ITS | Encounter Summary ---
Author Organization [facility] [place] [address] Care Team Providers Care Systems Coordinator Name Role Phone OnofreValencia pitts Oralia SLADE Primary Care Provider +1 [phone] Encounter Details Date Type Department Care Team (Late st Contact Info) Description 07/16/2019 Orders Only Psychiatry [place] [phone] Argelia Mccray APRN [facility] [place] [address] Anxiety 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 Tobacco Use Types Packs/Day [...] Contact Info) Description 05/23/2024 Hospital [place] [address] Maite Malloy MD [facility] OBSTET[place] [address] documented as of this encounter Visit Diagnoses Diagnosis Anxiety Anxiety state, unspecified documented in this encounter Care Teams Systems Coordinator Relationship Specialty Start Date End Date Valencia Adhikari APRN [address] [place] [address] PCP - General 04/21/14 07/04/23 documented as of this encounter
--- OUTSIDE RECORDS SUMMARY | 2023-10-29 03:59 | XMS_ITS | Encounter Summary ---
Author Organization [facility] [place] [address] Care Team Providers Care Tube Building Machine Operator Name Role Phone Valencia Adhikari APRN Primary Care Provider +1 [phone] Encounter Details Date Type Department Care Team (Latest Contact Info) Description 05/09/2021 3:00 PM EST TH Visit (TeleHealth) Psychiatry and Behavioral Health at [facility] [place] [phone] Lisa Dickens, PhD Unspecified mood (affective) disorder; [...] Progress Notes * Lisa Dickens, PhD - 05/09/2021 3:00 PM EST INDIVIDUAL THERAPY PROGRESS NOTE CPT CODE 25342 LOCATION: Telehealth visit. Andree Artislliams gave permission for and was seen for today's appointment with a Telehealth visit. During this visit she was located in her apartment in [place], [place]. Andree WallisKamranTamara is aware that for any urgent matter she can can contact her regional mental health crisis services. For patients located in [place]: [email or web address] or text/call . Forpatients located in [place]: [email or web address]. To reach their [facility] mental health clinician or the outpatient Department of Psychiatry clinics,patient can call [phone]. SESSION DURATION: 40 minutes ATTENDEES: Patient PRIMARY COMPLAINT/DIAGNOSIS: Borderline Personality Disorder; Unspecified Mood Disorder TREATMENT MODALITY: DBT PATIENT REPORT OF CURRENT FUNCTIONING/CHANGES: Patient reported: -better than last week, not much has changed, feels she is her own worst enemy because she knows what needs to be done and just can't get up and do it every day, last couple of days has gotten upand done a few small things, forcing herself to get out of bed -when she wakes up first thought is f...k, thinking about how she finally got to sleep, doesn't want to deal with things, has to take care of dog and kid, does get up and get kid to school before going back to bed -feels she should be cleaning and taking care of things, does knit, watch TV, go over to best friends CENTRAL THEME OF SESSION: Behavioral Activation. IN-SESSION PROCEDURES: I provided empathic listening and validation. I provided psychoeducation about Behavioral Activation and we discussed the barriers that impede activity for patient. I also noted the negative impact of her automatic thoughts and we discussed how unhelpful thoughts can continuea depressive cycle. I encouraged patient to challenge her unhelpful thoughts by focusing on facts ra ther than the interpretations (I did not get up today and I had planned to so I feel disappointed, vs I messed up, I'm a loser, I'll never get it together). CLINICAL FINDINGS: PROGRESS FROM BASELINE: same as pre-treatment PROGRESS FROM LAST SESSION: slight improvement from previous session Patient-reported Psychiatry Follow-up scores [...] was linear and goal-directed. Mood was better than las week and affect was predominantly euthymic; full range, with variation as was appropriate to sessioncontent. She was oriented to person, place and [...] in the agreed upon activities. Next Appointment: 05/16/2021 Lisa Dickens, PhD documented in this encounter Plan of Treatment Upcoming Encounters Date Type Department Care Team (Late st Contact Info) Description 05/23/2024 [place] [address] Maite Malloy MD [facility] [address] [place] [address] documented as of this encounter Visit Diagnoses Diagnosis Unspecified mood (affective) disorder Borderline personality disorder documented in this encounter Care Teams Tube Building Machine Operator Relationship Specialty Start Date End Date Valencia Adhikari APRN [address] [place] [address] PCP - General 04/21/14 07/04/23 documented as of this encounter
--- OUTSIDE RECORDS SUMMARY | 2023-10-29 03:59 | XMS_ITS | Encounter Summary ---
Author Organization [facility] [place] [address] Care Team Providers Care Fortune Cookie Maker Name Role Phone Valencia Adhikari APRN Primary Care Provider [phone] [phone] Encounter Details Date Type Department Care Team (Late st Contact Info) Description 10/04/2018 Telephone Psychiatry [place] [phone] Argelia Mccray APRN [facility] [place] [address] 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 Tobacco Use Types Packs/Day Years [...] encounter Miscellaneous Notes * Telephone Encounter - Argelia Mccray APRN - 10/04/2018 2:11 PM EDT Returning patient's phone call from 10/03. Unable to reach patient and left voicemail. Argelia Mccray APRN documented in this encounter Plan of Treatment Upcoming Encounters Date Type Department Care Team (Late st Contact Info) Description 05/23/2024 Hospital [place] [phone] Maite Malloy MD [facility] [address] OBSTETRICS [place] [address] documented as of this encounter Visit Diagnoses Not on filedocumented in this encounter Care Teams Fortune Cookie Maker Relationship Specialty Start Date End Date Valencia Adhikari APRN [address] [place] [address] PCP - General 04/21/14 07/04/23 documented as of this encounter
--- OUTSIDE RECORDS SUMMARY | 2023-10-29 03:59 | XMS_ITS | Encounter Summary ---
Author Organization [facility] Address [facility] [place] [address] Care Team Providers Care Transitional Nurse Name Role Phone OnofreMarilynValenciaadan Barton APRN Primary Care Provider [phone] [phone] Reason for Visit * Reason Onset Date Comments Medication Refill 08/02/2018 Encounter Details Date Type Department Care Team (Late st Contact Info) Description 08/02/2018 Refill Psychiatry [place] [address] Osmar South RN Anxiety 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 Tobacco Use Types Packs/Day [...] Contact Info) Description 05/23/2024 Hospital [place] [address] Maite Malloy MD [facility] OBSTETRICS [place] [address] documented as of this encounter Visit Diagnoses Diagnosis Anxiety Anxiety state, unspecified documented in this encounter Care Teams Transitional Nurse Relationship Specialty Start Date End Date Valencia Adhikari APRN [address] [place] [address] PCP - General 04/21/14 07/04/23 documented as of this encounter
--- OUTSIDE RECORDS SUMMARY | 2023-10-29 03:59 | XMS_ITS | Encounter Summary ---
Author Organization [facility] Address [facility] [place] [address] Care Team Providers Care Contact Center Rep Name Role Phone OnofreMarilyn pittshryn Oralia SLADE Primary Care Provider +1 [phone] Reason for Visit * Reason Onset Date Comments Medication Refill 03/16/2020 Encounter Details Date Type Department Care Team (Late st Contact Info) Description 03/16/2020 Refill Psychiatry [place] [address] Osmar South RN Anxiety; Depression, unspecified depression type 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 Tobacco Use Types Packs/Day Years [...] Info) Description 05/23/2024 Hospital [place] [address] Maite Malloy MD [facility] [place] [address] documented as of this encounter Visit Diagnoses Diagnosis Anxiety Anxiety state, unspecified Depression, unspecified depression type documented in this encounter Care Teams Contact Center Rep Relationship Specialty Start Date End Date Valencia Adhikari APRN [address] [place] [address] PCP - General 04/21/14 07/04/23 documented as of this encounter
--- OUTSIDE RECORDS SUMMARY | 2023-10-29 03:59 | XMS_ITS | Encounter Summary ---
Author Organization [facility] [place] [address] Care Team Providers Care Research Hydraulic Engineer Name Role Phone Valencia Adhikari APRN Primary Care Provider +1 -[phone] Encounter Details Date Type Department Care Team (Latest Contact Info) Description 04/25/2021 3:00 PM EST TH Visit (TeleHealth) Psychiatry [place] [address] Lisa Dickens, PhD Borderline personality disorder 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 Tobacco Use [...] Progress Notes * Lisa Dickens, PhD - 04/25/2021 3:00 PM EST INDIVIDUAL THERAPY PROGRESS NOTE CPT CODE 03340 LOCATION: Telephone office visit. Andree SinghTamara gave permission for and was seen for today's appointment with a Telephone office visit. During this visit she was located in her apartment in [place], [place]. Andree WallisKamranTamara is aware that for any urgent matter she can can contact her regional mental health crisis services. For patients located in [place]: www.[employer] or text/call . For patients located in [place]: [email or web address]. To reach their [facility] mental health clinician or the outpatient Department of Psychiatry clinics, patient can call [phone]. SESSION DURATION: 40 minutes ATTENDEES: Patient PRIMARY COMPLAINT/DIAGNOSIS: Borderline Personality Disorder; Unspecified Mood Disorder TREATMENT MODALITY: DBT PATIENT REPORT OF CURRENT FUNCTIONING/CHANGES: Patient reported: -son was Dx with COVID 2 days after his vaccine shot, family is blaming her for taking time to makethe decision about vaccinating him (7 weeks) -he has been out of school and she has been unable to work, feeling stressed, having trouble sleeping, smoking more, trying not to lose her temper -feels trapped, little she can change CENTRAL THEME OF SESSION: Radical Acceptance IN-SESSION PROCEDURES: I provided empathic listening and validation. We identified the many things outside of patient's control and I asked about what is inside patient's control. We spent time discussing the distress of feeling rejected and unseen by her family as well as the stress of carrying the load and being responsible for herself and her son. I described Radical Acceptance and how it can be useful to reduce suffering in situations where we are distressed by things that are outside of our control. CLINICAL FINDINGS: PROGRESS FROM BASELINE: same as [...] at the appointment on time and unaccompanied. Due to technological issues, the video call did not connect and we moved to a telephone appointment. Speech was normal in rate, rhythm, volume, and tone and was linear and goal-directed. Mood was shitty and affect was predominantly euthymic; full range, [...] become interpersonally effective. Revised goals or interventions: Initial goals set in this session. Safety Risk Management: Standard safety [...] text line and national hotline number. Homework: Review the steps of Radical Acceptance. Next Appointment: 05/02/2021 Lisa Dickens, PhD documented in this encounter Plan of Treatment Upcoming Encounters Date Type Department Care Team (Late st Contact Info) Description 05/23/2024 Hospital En[place] [address] Maite Malloy MD [facility] DR OBSTETRICS [place] [address] documented as of this encounter Visit Diagnoses Diagnosis Borderline personality disorder documented in this encounter Care Teams Research Hydraulic Engineer Relationship Specialty Start Date End Date Valencia Adhikrai APRN [address] [place] [address] PCP - General 04/21/14 07/04/23 documented as of this encounter
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
--- OUTSIDE RECORDS SUMMARY | 2023-10-29 03:59 | XMS_ITS | Encounter Summary ---
[place] [address] Care Team Providers Care Tmd Teacher Assistant Name Role Phone Valencia Adhikari APRN Primary Care Provider [phone] [phone] Reason for Visit * Reason Onset Date Comments Prior Authorization 12/31/2018 Celecoxib 20 0 mg Prior Authorization 01/02/2019 Request for information from [facility] Encounter Details Date Type Department Care Team (Late st Contact Info) Description 12/31/2018 [place] [address] Geovanna Paredes RN Prior Authorization (Celecoxib 200 mg ); Prior Authorization (Request for information from [facility]) 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 Tobacco Use Types Packs/Day Years [...] encounter Miscellaneous Notes * Telephone Encounter - Geovanna Paredes RN - 01/02/2019 11:30 AM EDT PA Request received by fax from [facility] Request for information - documentation to show previous - continuous use of Celebrex Documentation faxed to [facility] # [phone] Awaiting response. * Telephone Encounter - Geovanna Paredes RN - 12/31/2018 4:49 PM EDT Prior Auth Request received from [facility] [address] [place] [address] Celecoxib 200 mg cap - Take 1 capsule by mouth daily. 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 Previously tried: Voltaren Gel - 2017 - Not effective enough. Patient has Physical Therapy & Steroid Injections without relief. hyaqu Forms completed, signed and faxed to [facility] [place] [facility] at . Awaiting Response. documented in this encounter Plan of Treatment Upcoming Encounters Date Type Department Care Team (Late st Contact Info) Description 05/23/2024 [place] [address] Maite Malloy MD [facility] [address] OBSTETRICS [place] [address] documented as of this encounter Visit Diagnoses Not on filedocumented in this encounter Care Teams Tmd Teacher Assistant Relationship Specialty Start Date End Date Valencia Adhikari APRN [address] [place] [address] PCP - General 04/21/14 07/04/23 documented as of this encounter
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
--- OUTSIDE RECORDS SUMMARY | 2023-10-29 03:59 | XMS_ITS | Encounter Summary ---
Author Organization [facility] [place] [address] Care Team Providers Care Search Specialist Name Role Phone OnofreMarilynValencia Oralia SLADE Primary Care Provider [phone] Reason for Visit * Reason Onset Date Comments Medication Refill 10/13/2019 Encounter Details Date Type Department Care Team (Late st Contact Info) Description 10/13/2019 Refill Psychiatry [place] [phone] Argelia Mccray APRN [facility] [place] [address] Depression, unspecified depression type 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 Tobacco [...] Contact Info) Description 05/23/2024 Hospital [place] [phone] Maite Malloy MD [facility] OBSTETRICS [place] [address] documented as of this encounter Visit Diagnoses Diagnosis Depression, unspecified depression type documented in this encounter Care Teams Search Specialist Relationship Specialty Start Date End Date Valencia Adhikari APRN [address] [place] [address] PCP - General 04/21/14 07/04/23 documented as of this encounter
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
--- OUTSIDE RECORDS SUMMARY | 2023-10-29 03:59 | XMS_ITS | Encounter Summary ---
Author Organization [facility] [place] [address] Care Team Providers Care Grades 7 8 Tutor Name Role Phone OnofreValencia pitts Oralia SLADE Primary Care Provider [phone] Encounter Details Date Type Department Care Team (Late st Contact Info) Description 10/28/2018 Orders Only Psychiatry [place] [phone] Argelia Mccray APRN [facility] [place] [address] Anxiety 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 Tobacco Use Types Packs/Day [...] Contact Info) Description 05/23/2024 [place] [address] Maite Malloy MD [facility] OBSTETRICS [place] [address] documented as of this encounter Visit Diagnoses Diagnosis Anxiety Anxiety state, unspecified documented in this encounter Care Teams Grades 7 8 Tutor Relationship Specialty Start Date End Date Valencia Adhikari APRN [address] [place] [address] PCP - General 04/21/14 07/04/23 documented as of this encounter
--- OUTSIDE RECORDS SUMMARY | 2023-10-29 03:59 | XMS_ITS | Encounter Summary ---
Author Organization [facility] Address [facility] [place] [address] Care Team Providers Care Track Repair Person Name Role Phone Valencia Adhikari APRN Primary Care Provider [phone] Reason for Visit * Consultation (Routine) - Closed Specialty Diagnoses / Procedures Referred By Lamont riggins Referred To Contact Endocrinology Diagnoses Thyroiditis, unspecified Valencia Adhikari APRN [address] [place] [address] [facility] [address] [place] [id number] Referral ID Status Reason Start Date Expiration Date V isits Requested Visits Authorized [id number] Closed Consult, Test & Treat Connection [facility] PCP Updated and/or Approved 01/17/2021 01/17/2022 12 12 Encounter Details Date Type Department Care Team (Latest Contact Info) Description 04/26/2021 11:00 AM EST TH Visit (TeleHealth) [place] [address] Shelli Kearns MD [facility] [address] [place] [address] Obinna's thyroiditis; Hypothyroidism, postsurgical; Vitamin D insufficiency; Chronic fatigue 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 Tobacco Use Types Packs/Day Years [...] Sign Reading Time Taken Comments Blood Pressure 120/70 04/26/2021 11:20 AM EST Pulse 90 04/26/2021 11:20 AM EST Temperature - - Respiratory Rate 10 04/26/2021 11:20 AM EST Oxygen Saturation - - Inhaled Oxygen Concentration - - Weight 104.3 kg (230 lb) 04/26/2021 11:20 AM EST Height 172.7 cm (5' 8) 04/26/2021 11:20 AM EST Body Mass Index 34.97 04/26/2021 11:20 AM EST documented in this encounter Patient Instructions * Patient Instructions* Shelli Kearns MD - 04/26/2021 11:00 AM EST hypothyroidism post surgery since 03/22/11 for MNG with benign pathology (good news for you today!) as shown below: ---Pathologic Diagnosis--- Date 03/22/2011 CORRECTED REPORT (see Comment) Thyroid and central compartment, total thyroidectomy: 1. Follicular adenoma, microfollicular pattern, left lobe, 2.7 cm. 2. 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 3. Two benign parathyroid glands, right lower (A20) and left lower (A29). 4. Twelve benign lymph nodes (0/12). 5. Benign thymic tissue (intrathyroidal and within central compartment) with an incidental unilocular thymic cyst, 0.6 cm. 6. Incidental intrathyroidal adipose tissue. CR-0 03/28/11 LJT 03/31/11 Verified by: Mansoor LIMA, Yessy Guzman Pathologist (Electronic Signature) ---Comment--- Correction Note: The responsible physician is changed. There are NO other changes to the text of this report.Miguel Abel, 03/31/11 10:47 ---Gross Description--- Labeled/Fixative: Total thyroid with central compartment node dissection, fresh. Qty/Size/Weight: Single, 7.0 x 6.0 x 4.0 cm, 61 g. Tissue Description: Thyroid with central compartment nodes. External Surface: Nodular and enlarged symmetrically. Parathyroid(s) None identified. Lesion: A single large nodule measuring 2.7 cm in greatest dimension is found in the left lateral lower pole. Additional lesions: The specimen is serially sectioned and [facility] Provider: JUAN ESPARZA Pt. Name: ALONSO HUMMEL Acc #: [id number] Pt. Col Date: 03/22/2011 /Sex: 1990,(20 years),Female Rec Date: 03/22/2011 LOC: SDP SURGICAL PATHOLOGY demonstrates diffuse, tam-yellow, nodular proliferations in both lobes and isthmus. Contour/Capsule: The capsule of the thyroid appears to abut these nodules and is somewhat distortedby them. Sections/Processing: (1-20) serial sections of right lobe from superior to inferior; (21-40) left lobe from superior to inferior including enlarged parathyroid; (41-44) account executive sales representative sections of isthmus; (45-50) serial sections of matted, possible lymph nodes in the central compartment. (R50) aje/DPN ---Clinical Information--- Specimen Submitted: A - Total thyroid with central compartmental node dissection Clinical History/Diagnosis: PTC DIAGNOSIS: 30 y.o. with post-surgical hypothyroidism, s/p thyroidectomy 03/22/11 for MNG (benign follicular nodules of 3s cm) and pathology also showed Obinna's thyroiditis. She has a strong family history ofhypothyroid in her younger sister as well. She always thought that she had thyroid cancer after having the surgery and now understands that the final pathology report shared with her via VDO screen today did not show thyroid cancer at all so she was surprised and felt very relived. She has had a wide TSH fluctuation 0.1-127 range despite good medication compliant, most likely dueto GI malabsorption and will try to eat low gluten diet to see if it helps improve her TSH trends. She ok not to eat bread but loves pasta. Previous lab showed low normal vitD at 30s (normal 30-100) commonly seen in celiac disease in patients with autoimmune Obinna's thyroiditis. TSH was very high at 127 in Dec 2020 and PCP already switched levothyroxine to brand name Synthroid 200 mcg qd (same dose) with improvement. Will get more recent lab from outside and recheck lab soon at [facility] lab. If TSH remains high, we may add cytomel short-acting to suppress TSH down or switch synthroid to Tirosint but the latter will be more costly and will try to improve her GI absorption for synthroid first. PLAN: 1. Medication: Patient will cont taking synthroid 200 mcg qd for now until we get a new set of lab results soon. She knows to take it on an empty stomach at least 1/2 h before breakfast and separate from iron, calcium or multivitamin- multimineral supplement to ensure full absorption of her thyroid medication. Patient was advised of proper dosage, how to take the medication properly, precautions, and potential complication of the medication prescribed. Patient will continue all other medications, healthy diet and execise regularly. 2. To eat low gluten (cut back on pasta and bread) and more vegetables and white meats with healthybalanced diet as well as regular exercise to keep weight down 3. Lab: check lab today or soon at [facility] for TSH, FT4, 25vitD, B12, iron/TIBC. Orders Placed This Encounter Procedures TSH T4, free Vitamin D, 25-Hydroxy Vitamin B12 Iron and TIBC 4. RTC: 3-4 months by VDO and will check TSH and FT4 monthly (standing order) during the interim until stable. Addendum: Results for LOUISEVishalFRANK IDAAARON Godoy ( ) as of 04/26/2021 Ref. Range 12/12/2012 00:00 04/01/2015 10:02 08/30/2017 10:05 10/04/2017 10:08 07/04/2018 => 12/2018 => 06/2019 => 01/10/21 => 05/06/21 T4, total Range: 5.1 - 10.8 mcg/dL 7.4 8.5 5.7 Free T4 Range: 0.93 - 1.70 ng/dL 1.58 1.74 (H) 1.15 => 1.31 => 0.47L => 1.23 TSH 0.27 - 4.20 mcIU/mL 0.15 L (EXTERNAL) 15.40 (H) 0.90 7.30 (H) => 30.9H => 4.16H => 127H => 0.32 T3, Free 2.0 - 4.4 pg/mL 2.8 3.8 2.6 Beta hCG Quant Latest Units: mlU/ML <1 Prolactin Range: 4.8 - 23.3 ng/mL 21.1 Thyroglob Ab Range: 0.0 - 40.0 IU/mL <20.0 <20.0 <20.0 Calcium Range: 8.5 - 10.5 mg/dL 8.8 9.3 9.1 25-OH Vit D Total 30 - 100 ng/mL 33, low normal => 16.1 L Addendum: lab after the visit on 05/06/21 showed : --good FT4 1.23 and borderline suppressed TSH 0.32 (down from 127) at the high thyroid end now => ok to taper synthroid 200 mcg and 0.5 tab on Sundays --low 25vitamin D at 16.1 (normal 30-100). So, pt should take vitamin-D 50,000 iu weekly as we gretel-prescribed. *Celiac antibody test is invalid and misleadingly negative, as she has low IgA at 36 (normal 85-499) --Low normal B12 at 314 (optimal 400-1000) so she should take extra OTC-B12 500 mcg daily -- normal iron 50 with borderline low iron saturation at 18% (normal 20-50%) => ok to take iron sulfate 325 mg after dinner with vitamin C to enhance iron absorption daily. Shelli Kearns MD, PhD, FACE, FACP documented in this encounter Progress Notes * Shelli Kearns MD - 04/26/2021 11:00 AM EST Endocrinology Consultation Date of Visit: 04/26/2021 Patient: Name: Preethi Hummel : 1990 PCP: Valencia Adhikari APRN Provided by Shelli Kearns MD, PhD, FACE, FACP Preethi Godoy Estephanie was seen in consultation in the Endocrine clinic at the request of Dr.Kathryn Oralia Adhikari APRN for: hypothyroidism with high TSH 127 in Dec 2020. Patient's previous record as are the lab results are reviewed. Patient verbally consents to this telehealth visit and understands that this visit may be billed, similar to a clinic office visit. I provided care to the patient today via VDO call. The total time associated with this visit, chartreview, documentation, and coordination of care was 60 minutes. HISTORY OF PRESENT ILLNESS: Patient is a very pleasant 30 y.o. female who presents for evaluation of hypothyroidism post surgery since 03/22/11 for MNG with benign pathology as below: (*pt always thought that she has had thyroid cancer since the surgery and now understands that the final pathology report below did not show thyroid cancer so she felt very relived). ? ---Pathologic Diagnosis--- Date 03/22/2011 ? CORRECTED REPORT (see Comment) ? Thyroid and central compartment, total thyroidectomy: ? 1. Follicular adenoma, microfollicular pattern, left lobe, 2.7 cm. ? 2. 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 ? 3. Two benign parathyroid glands, right lower (A20) and left lower (A29). ? 4. Twelve benign lymph nodes (0). ? 5. Benign thymic tissue (intrathyroidal and within central compartment) ? with an incidental unilocular thymic cyst, 0.6 cm. ? 6. Incidental intrathyroidal adipose tissue. ? CR-0 ? 03/28/11 LJT ? 03/31/11 Verified by: ? Mansoor LIMA, Yessy Guzman Pathologist ? (Electronic Signature) ? ---Comment--- Correction Note: ??The responsible physician is changed. ??There are NOother changes to the text of this report.. Killian Abel, 03/31/11 10:47 ? ---Gross Description--- ? Labeled/Fixative: ? Total thyroid with central compartment node ? dissection, fresh. ? Qty/Size/Weight: ?Single, 7.0 x 6.0 x 4.0 cm, 61 g. ? Tissue Description: ? Thyroid with central compartment nodes. ?External Surface: ?Nodular and enlarged symmetrically. ?Parathyroid(s) ? None identified. ?Lesion: ?A single large nodule measuring 2.7 cm in ? greatest dimension is found in the left lateral ? lower pole. ?Additional lesions: ?The specimen is serially sectioned and ? [facility] ? Provider: ?? JUAN ESPARZA Pt. Name: ?? ALONSO HUMMEL ? E ? Acc #: ?[id number] ?Pt. ? Col Date: ?? 03/22/2011 ? /Sex: ?1990,(20 years),Female ? Rec Date: ?? 03/22/2011 ? LOC: ?SDP ? SURGICAL PATHOLOGY demonstrates diffuse, tam-yellow, nodular proliferations in both lobes and isthmus. ? Contour/Capsule: ?The capsule of the thyroid appears to abut these nodules andis somewhat distorted by them. ? Sections/Processing: ?(1-20) serial sections of right lobe from superior to inferior; (21-40) left lobe from superior to inferior including enlarged parathyroid; (41-44) representativesections of isthmus; (45-50) serial sections of matted, possible lymph nodes in the central compartment. ??(R50) ??aje/DPN ? ---Clinical Information--- ? Specimen Submitted: ? A - Total thyroid with central compartmental node dissection ? Clinical History/Diagnosis: PTC Patient has strong FH of thyroid problem in her sister who also has Obinna's thyroiditis. No family history of thyroid cancer that patient is aware of. No previous head and neck irradiation and does not take other supplements or medications that can cause low thyroid. No neck pain or difficulty swallowing or voice changes. Recent labs: outside lately prior to consultation Results for MARIOFRANK, IDAAARON Walt ( ) as of 04/26/2021 Ref. Range 12/12/2012 00:00 04/01/2015 10:02 08/30/2017 10:05 10/04/2017 10:08 07/04/2018 => 12/2018 => 06/2019 => 01/10/21 Free T4 Range: 0.93 - 1.70 ng/dL 1.58 1.74 (H) 1.15 => 1.31 => 0.47L TSH 0.27 - 4.20 mcIU/mL 0.15 (L) 15.40 (H) 0.90 7.30 (H) => 30.9H => 4.16H => 127H T3, Free Range: 2.0 - 4.4 pg/mL 2.8 3.8 2.6 Her PCP then switched levothyroxine to brand name Synthroid 200 mcg qd (same dose) and pt stated that repeat lab showed improvement but could not recall the results and we have no updated info after the referral package was sent to us in Jan 2021. Will get recent lab from outside and recheck lab soon at [facility] lab. She feels tired all the time with all hypothyroid symptoms as shown below. Her son age 8 just had Covid-19 after 1st shot of vaccine 2-3 weeks ago but was tested negative ok. Fatigue - Yes Weight gain - Yes Intolerance to cold - Yes Dry skin - some constipation - some Menstrual irregularities - Yes, off IUD and just had it removed in Feb 2021 after 10 yrs without any contraception as she is not sexually active ( her sone was born in 2012) Muscle and joint pain - Yes Sleep disturbances - Yes Forgetfulness - Yes but at least recalled her TSH values of 127 accurately Globus sensation - no Difficulty swallowing - no Difficulty breathing - no Hoarseness or voice change - No REVIEW OF SYSTEMS: as per HPI, all other systems reviewed and negative PAST MEDICAL HISTORY Patient Active Problem List Diagnosis Code ??? Unspecified mood (affective) disorder F39 ? ? 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 Left knee pain M25.562 ??? Intractable chronic migraine without aura G43.719 ??? Chronic left shoulder pain M25.512, G89.29 ??? Biceps tendinitis, left M75.22 ??? Scapular dyskinesis G25.89 ??? Borderline personality disorder F60.3 ??? Premature delivery O60.10X0 ??? Asthma J45.909 Allergy Allergies Allergen Reactions ??? Demerol [Meperidine] Anaphylaxis ??? Dilaudid [Hydromorphone (Bulk)] Hives ??? Codeine Nausea And Vomiting Current Medication Current Outpatient Medications on File Prior to Visit Medication Sig Dispense Refill ??? levonorgestreL (Mirena) 20 mcg/24 hours (7 yrs) 52 mg IUD by Intrauterine route. ??? LORazepam (Ativan) 0.5 mg Tablet Take [...] by mouth daily. 60 tablet 3 ??? celecoxib (CELEBREX) 200 mg Capsule Take 1 capsule by mouth daily. (Patient not taking: Reported on 08/04/2020) 30 capsule 1 ??? lidocaine (LIDODERM) 5 % Adhesive Patch, Medicated Apply 1 patch onto the skin daily. (leave onfor 12 hours and remove for 12 hours) 30 patch 2 ??? levothyroxine (SYNTHROID) 200 mcg Tablet take 1 tablet by mouth once daily 0 No current facility-administered medications on file prior to visit. 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 Socioeconomic History ??? Marital status: Single Spouse name: Not on file ??? Number of children: 0 ??? Years of education: 17 ??? Highest education level: Not on file Occupational History ??? 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 Smoking status: Current Every Day Smoker Packs/day: 0.50 Years: 4.00 Pack years: 2.00 Types: Cigarettes ??? Smokeless tobacco: Never Used Vaping Use ??? Vaping Use: Former Substance and Sexual Activity ??? Alcohol use: Yes Comment: socially ??? Drug use: Yes Types: Marijuana Comment: daily ??? Sexual activity: Yes Partners: Male control/protection: I.U.D. Comment: Mirena inserted 03/14/2016 Other Topics Concern ??? Abuse or Threat: Help requested by patient No ??? Abuse or Threat: Physical, Sexual, Verbal No ??? Back Care Not Asked ??? Bike Helmet Not Asked ??? Blood Transfusions Not Asked ??? Caffeine Concern Not Asked ??? Exercise Not Asked ??? Exercise: Patient reported Not Asked ??? Hobby Hazards Not Asked ??? Service Not Asked ??? Occupational Exposure Not Asked ??? Poor oral hygiene Not Asked ??? Seat Belt Not Asked ??? Second-hand smoke exposure Not Asked ??? Self-Exams Not Asked ??? Sleep Concern Yes ??? Special Diet Not Asked ??? Stress Concern Not Asked ??? Violence Concern No ??? Weight Concern Yes 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 Narrative ??? Not on file Social Determinants of Health Financial Resource Strain: Not on file Food Insecurity: Not on file Transportation Needs: Not on file Physical Activity: Not on file Housing Stability: Not on file Family History Family History Problem Relation Age of Onset ??? * Brother dyspraxia ??? Parkinsonism Mother ??? Breast Cancer Mother had three lumps removed in her 40's ??? Arrhythmia Mother ??? Coronary Artery Disease Mother ??? Dementia Maternal Grandmother Alzheimer's ??? Cancer Maternal Grandfather lung cancer ??? Myocardial Infarction Paternal Grandmother ??? Thyroid Cancer Paternal Grandmother ??? Cancer Paternal Grandfather lung cancer ??? Migraines Father ??? Parkinsonism Father ??? Thyroid Disease Sister ??? NOS GENETIC SYNDROMES Sister possible LCHAD deficiency ??? Lupus Paternal Aunt ??? Arthritis Paternal Aunt ??? Asthma Brother PHYSICAL EXAM: BP 120/70 Pulse 90 Resp 10 Ht 172.7 cm (5' 8) Wt 104.3 kg (230 lb) BMI 34.97 kg/m?? Appearance: obese, very pleasant, NAD HEENT: PERRLA, EOMI, no lid lag or exophthalmos Neck: supple, no goiter visible s/p thyroidectomy with scar in lower neck Ext: normal skin appearance Neuro: no weakness, non-focal, no facial asymmetry. ---Pathologic Diagnosis--- Date: 03/28/11 ? Thyroid and central compartment, total thyroidectomy: ? 1. Follicular adenoma, microfollicular pattern, left lobe, 2.7 cm. ? 2. 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 ? 3. Two benign parathyroid glands, right lower (A20) and left lower (A29). ? 4. Twelve benign lymph nodes (012). ? 5. Benign thymic tissue (intrathyroidal and within central compartment) with an incidental unilocular thymic cyst, 0.6 cm. ? 6. Incidental intrathyroidal adipose tissue. ? Results for PREETHI HUMMEL ( ) as of 04/26/2021 Ref. Range 12/12/2012 00:00 04/01/2015 10:02 08/30/2017 10:05 10/04/2017 10:08 07/04/2018 => 12/2018 => 06/2019 => 01/10/21 => 05/06/21 T4, total Range: 5.1 - 10.8 mcg/dL 7.4 8.5 5.7 Free T4 Range: 0.93 - 1.70 ng/dL 1.58 1.74 (H) 1.15 => 1.31 => 0.47L => 1.23 TSH 0.27 - 4.20 mcIU/mL 0.15 L (EXTERNAL) 15.40 (H) 0.90 7.30 (H) => 30.9H => 4.16H => 127H => 0.32 T3, Free 2.0 - 4.4 pg/mL 2.8 3.8 2.6 Beta hCG Quant Latest Units: mlU/ML <1 Prolactin Range: 4.8 - 23.3 ng/mL 21.1 Thyroglob Ab Range: 0.0 - 40.0 IU/mL <20.0 <20.0 <20.0 Calcium Range: 8.5 - 10.5 mg/dL 8.8 9.3 9.1 25-OH Vit D Total 30 - 100 ng/mL 33, low normal => 16.1 L + low IgA at 36 (nl 85-499) Addendum: lab after the visit on 05/06/21 showed --good FT4 1.23 and borderline suppressed TSH 0.32 (down from 127) at the high thyroid end now => ok to taper synthroid 200 mcg Sun-Sun and 0.5 tab on Sundays --low 25vitamin D at 16.1 (normal 30-100). So, pt should take vitamin-D 50,000 iu weekly as we gretel-prescribed. *Celiac antibody test is invalid and misleadingly negative, as she has low IgA at 36 (normal 85-499) --Low normal B12 at 314 (optimal 400-1000) so she should take extra OTC-B12 500 mcg daily -- normal iron 50 with borderline low iron saturation at 18% (normal 20-50%) => ok to take iron sulfate 325 mg after dinner with vitamin C to enhance iron absorption daily. DIAGNOSIS: 30 y.o. with post-surgical hypothyroidism, s/p thyroidectomy 03/22/11 for MNG (benign follicular nodules of 3s cm) and pathology also showed Obinna's thyroiditis. She has a strong family history ofhypothyroid in her younger sister as well. She always thought that she had thyroid cancer after having the surgery and now understands that the final pathology report shared with her via VDO screen today did not show thyroid cancer at all so she was surprised and felt very relived. She has had a wide TSH fluctuation 0.1-127 range despite good medication compliant, most likely dueto GI malabsorption and will try to eat low gluten diet to see if it helps improve her TSH trends. She ok not to eat bread but loves pasta. Previous lab showed low normal vitD at 30s (normal 30-100) commonly seen in celiac disease in patients with autoimmune Obinna's thyroiditis. TSH was very high at 127 in Dec 2020 and PCP already switched levothyroxine to brand name Synthroid 200 mcg qd (same dose) with improvement. Will get more recent lab from outside and recheck lab soon at [facility] lab. If TSH remains high, we may add cytomel short-acting to suppress TSH down or switch synthroid to Tirosint but the latter will be more costly and will try to improve her GI absorption for synthroid first. PLAN: 1. Medication: Patient will cont taking synthroid 200 mcg qd for now until we get a new set of lab results soon. She knows to take it on an empty stomach at least 1/2 h before breakfast and separate from iron, calcium or multivitamin- multimineral supplement to ensure full absorption of her thyroid medication. Patient was advised of proper dosage, how to take the medication properly, precautions, and potential complication of the medication prescribed. Patient will continue all other medications, healthy diet and execise regularly. 2. To eat low gluten (cut back on pasta and bread) and more vegetables and white meats with healthybalanced diet as well as regular exercise to keep weight down 3. Lab: check lab today or soon at [facility] for TSH, FT4, 25vitD, B12, iron/TIBC. Orders Placed This Encounter Procedures ??? TSH ??? T4, free ??? Vitamin D, 25-Hydroxy ??? Vitamin B12 ??? Iron and TIBC 4. RTC: 3-4 months by VDO and will check TSH and FT4 monthly (standing order) during the interim until stable. We have reviewed our plan outlined above with the patient, and patient verbalized understanding. All questions were answered and most of the time was spent on counseling about thyroid conditions, medications adjustment, including pros and cons of starting medication, the diagnostic and therapeutic decisions, and coordination of care. Thank you for allowing me to participate in the care of this very pleasant patient. Shelli Kearns MD, PhD, FACE, FACP cc: Valencia Adhikari APRN documented in this encounter Miscellaneous Notes * Addendum Note - Shelli Kearns MD - 04/26/2021 11:00 AM ESTAddended by: SHELLI KEARNS on: 05/10/2021 05:46 PM Modules accepted: Orders documented in this encounter Plan of Treatment Upcoming Encounters Date Type Department Care Team (Late st Contact Info) Description 05/23/2024 Hospital [place] [address] Maite Malloy MD [facility] OBSTETRICS [place] [address] documented as of this encounter Visit Diagnoses Diagnosis Obinna's thyroiditis Chronic lymphocytic thyroiditis Hypothyroidism, postsurgical Postsurgical hypothyroidism Vitamin D insufficiency Unspecified vitamin D deficiency Chronic fatigue Other malaise and fatigue documented in this encounter Care Teams Track Repair Person Relationship Specialty Start Date End Date Valencia Adhikari APRN [address] [place] [address] PCP - General 04/21/14 07/04/23 documented as of this encounter
--- OUTSIDE RECORDS SUMMARY | 2023-10-29 03:59 | XMS_ITS | Encounter Summary ---
Author Organization [facility] [place] [address] Care Team Providers Care Oil Expeller Operator Name Role Phone Valencia Adhikari APRN Primary Care Provider +1 [phone] Encounter Details Date Type Department Care Team (Latest Contact Info) Description 03/21/2021 11:00 AM EST TH Visit (TeleHealth) Psychiatry [place] [phone] Lisa Dickens, PhD Unspecified mood (affective) disorder; [...] Progress Notes * Lisa Dickens, PhD - 03/21/2021 11:00 AM EST INDIVIDUAL THERAPY PROGRESS NOTE CPT CODE 56738 LOCATION: Telehealth. Andree Artislliams gave permission for and was seen for today's appointment with a Telehealth visit. During this visit she was located in her apartment in [place], [place]. Andree WallisKamranTamara is aware that for any urgent matter she can call [phone]. SESSION DURATION: 40 minutes ATTENDEES: Patient PRIMARY COMPLAINT/DIAGNOSIS: Borderline Personality Disorder; Unspecified Mood Disorder TREATMENT MODALITY: DBT PATIENT REPORT OF CURRENT FUNCTIONING/CHANGES: Patient reported: -shitty, started dating an ex and he convinced her to go off all of her medications, he wanted her destabilized so that she would get high with him, she broke things off with him and has restarted on venlafaxine, angry with self for going back to him, he said all the right things and gaslit her -failed out of school while with ex, currently on 6 month probation at school -son went through a difficult time and was behaving rudely, patient was able to sort out underlyingcauses and address it -new goddaughter is bright spot for patient, spends time with best friend, works, takes son to sports/activities -under stress due to financial pressures, inflation making it hard to afford things CENTRAL THEME OF SESSION: Re-establishing therapeutic relationship and discussing goals. IN-SESSION PROCEDURES: I provided empathic listening and validation. We discussed the vulnerabilities that led to her decisions related to her ex. We also explored patient's current life worth livinggoals. I asked her about behaviors to include in a diary card and patient was uncertain so we agreed that she would track unhelpful things over the next week so we can determine what to include. CLINICAL FINDINGS: PROGRESS FROM BASELINE: same as [...] goal-directed. Eye contact was good. Mood was shitty and affect was p redominantly euthymic; full range, with variation as was [...] evaluation was conducted in the initial session. Today, we discussed her current suicidality. Patient indicated that she does not have regular SI. Most recently, she had passive SI (wish I didn't have to deal with this) about two weeks ago. She has no recent plans and no intent to engage in suicidal behavior or attempts. In our initial session in June, patient stated that she had attempted suicide [...] text line and national hotline number. Homework: Track unhelpful behaviors over the next week. Next Appointment: 09/26/2020 Lisa Dickens, PhD documented in this encounter Plan of Treatment Upcoming Encounters Date Type Department Care Team (Late st Contact Info) Description 05/23/2024 [place] [address] Maite Malloy MD [facility] DR OBSTETRICS [place] [address] documented as of this encounter Visit Diagnoses Diagnosis Unspecified mood (affective) disorder Borderline personality disorder documented in this encounter Care Teams Oil Expeller Operator Relationship Specialty Start Date End Date Valencia Adhikari APRN [address] [place] [address] PCP - General 04/21/14 07/04/23 documented as of this encounter
--- OUTSIDE RECORDS SUMMARY | 2023-10-29 03:59 | XMS_ITS | Encounter Summary ---
Author Organization [facility] Address [facility] [place] [address] Care Team Providers Care Director It Name Role Phone Valencia Adhikari APRN Primary Care Provider [phone] [phone] Encounter Details Date Type Department Care Team (Late st Contact Info) Description 05/02/2021 Telephone Psychiatry [place] [phone] aMry Bateman 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 Tobacco Use Types Packs/Day [...] Info) Description 05/23/2024 Hospital [place] [address] Maite Malloy MD [facility] DR OBSTETRICS [place] [address] documented as of this encounter Visit Diagnoses Not on filedocumented in this encounter Care Teams Director It Relationship Specialty Start Date End Date Valencia Adhikari APRN [address] [place] [address] PCP - General 04/21/14 07/04/23 documented as of this encounter
--- OUTSIDE RECORDS SUMMARY | 2023-10-29 03:59 | XMS_ITS | Encounter Summary ---
Author Organization [facility] [place] [address] Care Team Providers Care Bag Shop Worker Name Role Phone OnofreMarilynValenciaadna Barton APRN Primary Care Provider [phone] [phone] Reason for Visit * Reason Onset Date Comments Medication Refill 04/27/2019 Encounter Details Date Type Department Care Team (Late st Contact Info) Description 04/27/2019 Refill Psychiatry [place] [address] Argelia Mccray APRN [facility] [place] [address] Anxiety 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 Tobacco Use Types Packs/Day [...] Info) Description 05/23/2024 Hospital [place] [address] Maite Malloy MD [facility] [place] [address] documented as of this encounter Visit Diagnoses Diagnosis Anxiety Anxiety state, unspecified documented in this encounter Care Teams Bag Shop Worker Relationship Specialty Start Date End Date Valencia Adhikari APRN [address] [place] [address] PCP - General 04/21/14 07/04/23 documented as of this encounter
--- OUTSIDE RECORDS SUMMARY | 2023-10-29 03:59 | XMS_ITS | Encounter Summary ---
Author Organization [facility] [place] [address] Care Team Providers Care Dip Dyer Name Role Phone OnofreMarilyn pittshryn Oralia SLADE Primary Care Provider +1 [phone] Reason for Visit * Reason Onset Date Comments Medication Refill 12/24/2018 Encounter Details Date Type Department Care Team (Late st Contact Info) Description 12/24/2018 Refill Psychiatry [place] [phone] Argelia Mccray APRN [facility] [place] [address] Depression, unspecified depression type; Anxiety 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 [...] Contact Info) Description 05/23/2024 Hospital [place] [address] Maite Malloy MD [facility] OBSTETRICS [place] [address] documented as of this encounter Visit Diagnoses Diagnosis Depression, unspecified depression type Anxiety Anxiety state, unspecified documented in this encounter Care Teams Dip Dyer Relationship Specialty Start Date End Date Valencia Adhikari APRN [address] [place] [address] PCP - General 04/21/14 07/04/23 documented as of this encounter
--- OUTSIDE RECORDS SUMMARY | 2023-10-29 03:59 | XMS_ITS | Encounter Summary ---
Author Organization [facility] [place] [address] Care Team Providers Care Medical Assistant Instructor Name Role Phone Valencia Adhikari APRN Primary Care Provider [phone] [phone] Encounter Details Date Type Department Care Team (Late st Contact Info) Description 08/22/2018 8:00 AM EDT Office Visit Psychiatry [place] [phone] Argelia Mccray ROLLER SHOP SUPERVISOR [facility] [place] [address] Depression, unspecified depression type; Anxiety 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 [...] Sign Reading Time Taken Comments Blood Pressure 114/70 08/22/2018 8:03 AM EDT Pulse 80 08/22/2018 8:03 AM EDT Temperature - - Respiratory Rate 18 08/22/2018 8:03 AM EDT Oxygen Saturation - - Inhaled Oxygen Concentration - - Weight 89.8 kg (198 lb) 08/22/2018 8:03 AM EDT Height 172.7 cm (5' 7.99) 08/22/2018 8:03 AM ED T Body Mass Index 30.11 08/22/2018 8:03 AM EDT documented in this encounter Progress Notes * Argelia Mccray, ROLLER SHOP SUPERVISOR - 08/22/2018 8:00 AM EDT ESTABLISHED ADULT PATIENT OFFICE VISIT NOTE Time Spent: 20min Attendee(s): Client only Chief Complaint: Have been very depressed History of Present Illness: () (Quality, Severity, Duration, Timing, Context, Modifying factors, Associated S&S) Andree Hummel is a 28 y.o. female presents today with anxiety, depression, bipolar II (?) - been so depressed for the last three weeks - anxiety has been bad because of the depression - client endorses lack of motivation; states she will not shower, sleep a lot, and will have a poorappetite; states she will then have days where she will stuff my face - discussed her TSH levels states they have been too high and is working with her PCP to manage this - continues to do her daily activities and responsibilities, but finding it takes a lot of effort to do so Substance Use: Tobacco use Safety: Low, no SI/HI Questionnaires: PHQ9 Questionnaires Data (Clinic and Pt [...] to Visit Medication Sig Dispense Refill ??? LORazepam (ATIVAN) 0.5 mg Tablet Take 1 tablet by mouth 2 times daily as needed for Anxiety. 60tablet 0 ??? venlafaxine (EFFEXOR-XR) 75 mg Capsule, Sust. Release 24 hr Take 1 capsule by mouth daily. 30 capsule 3 ??? lamoTRIgine (LAMICTAL) 150 mg Tablet Take 1.5 tablets by mouth daily. 45 tablet 3 ??? 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 Has a 5 year old son named Fabio. 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 Vitals (24hr Range): Patient Vitals for the past 24 hrs: Resp 08/22/18 0803 18 Musculoskeletal System: normal gait and balance and ambulates independently Mental Status Exam: ?? Appearance: age appropriate ?? Behavior: cooperative with the interview and calm ?? Speech: normal pitch, normal volume, normal rate and normal rhythm ?? Language: fluent in burmese ?? Mood: depressed ?? Affect: mood-congruent ?? Thought Process: linear [...] - 10.8 mcg/dL Final Comment: Reference Range: Cord Blood: 6.9-14.4 mcg/dL Females: 7.2-14.2 mcg/dL Pediatric ranges: Interpret with caution-ranges have not been verified Free T4 Date Value Ref Range Status 07/04/2018 1.15 0.93 - 1.70 ng/dL Final Lipids and HgbA1C: No results found for: CHLPL, HDL, CHOLHDL, LDLCHOL, LDLDIRECT, TRIG No results found for: HA1C Vit Lvls: No results found for: FVSVAVSZ81, SFOLATE Tox: No results found for: ETHANOL, ACTMNPHEN, SALICYLATE, LEAD No results found for: UDAUSCREEN Rx Lvls: Lamotrigine Lvl Date Value Ref Range Status 07/04/2018 3.2 2.5 - 15.0 mcg/mL Final Comment: ADDITIONAL INFORMATION This test was developed and its performance characteristics determined by [facility] in a manner consistent with CLIA requirements. This test has not been cleared or approved by the U.S. Food and Drug Administration. Test Performed by: [facility] [address] [place] [address] Formulation and Assessment: Overall Formulation: Andree Hummel is a 28 y.o. Female depression (likely [...] unspecified DDx: Bipolar disorder CURRENT ASSESSMENT: Andree continues to endorse depressed mood, which has also been exacerbating her anxiety. We discussed further increasing her dose of Effexor XR, which she is agreeable to. In addition, her TSH levels are high, which may account for as well as exacerbate some of her current depressive symptoms. Her lamotrigine level is WNL (on the lower side). She is presently working with herP to manage these levels. Continues to find Ativan helpful. Safety Assessment: Low, denies any SI or HI Plan: 1) Increase Effexor XR to 150mg PO QD 2) Continue Ativan and Lamotrigine Patient Instruction/Education provided: Patient provided verbal instructions regarding medication side effects, safety plan in case of feeling unsafe. Patient understands the plan? Yes Signed By: Argelia Mccray APRN 08/22/2018 documented in this encounter Plan of Treatment Upcoming Encounters Date Type Department Care Team (Late st Contact Info) Description 05/23/2024 Hospital Encounter Birthing [facility] [place] [address] Maite Malloy MD [facility] OBSTETRICS [place] [address] documented as of this encounter Visit Diagnoses Diagnosis Depression, unspecified depression type Anxiety Anxiety state, unspecified documented in this encounter Care Teams Medical Assistant Instructor Relationship Specialty Start Date End Date Valencia Adhikari APRN [address] [place] [address] PCP - General 04/21/14 07/04/23 documented as of this encounter
--- OUTSIDE RECORDS SUMMARY | 2023-10-29 03:59 | XMS_ITS | Encounter Summary ---
Author Organization [facility] [place] [address] Care Team Providers Care Dairy Nutrition Consultant Name Role Phone OnofreMarilyn pittshryn Oralia SLADE Primary Care Provider [phone] [phone] Reason for Visit * Reason Onset Date Comments Medication Refill 12/24/2018 Encounter Details Date Type Department Care Team (Late st Contact Info) Description 12/24/2018 Refill [place] [phone] Alicia Oviedo APRN [facility] [place] [address] Scapular dyskinesis; Left shoulder pain, unspecified chronicity 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 Tobacco Use Types Packs/Day Years [...] Contact Info) Description 05/23/2024 [place] [address] Maite Malloy MD [facility] [place] [address] documented as of this encounter Visit Diagnoses Diagnosis Scapular dyskinesis Lack of coordination Left shoulder pain, unspecified chronicity documented in this encounter Care Teams Dairy Nutrition Consultant Relationship Specialty Start Date End Date Valencia Adhikari APRN [address] [place] [address] PCP - General 04/21/14 07/04/23 documented as of this encounter
--- OUTSIDE RECORDS SUMMARY | 2023-10-29 03:59 | XMS_ITS | Encounter Summary ---
Author Organization [facility] [place] [address] Care Team Providers Care Research Group Director Name Role Phone Valencia Adhikari APRN Primary Care Provider [phone] [phone] Reason for Visit * Reason Onset Date Comments Medication Refill 05/11/2021 Encounter Details Date Type Department Care Team (Late st Contact Info) Description 05/11/2021 Refill [place] [address] Maite Goff, RN 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 Tobacco Use Types Packs/Day [...] Info) Description 05/23/2024 Hospital [place] [address] Maite Malloy MD [facility] OBSTETRICS AND GYNECOLOGY [place] [id number] documented as of this encounter Visit Diagnoses Not on filedocumented in this encounter Care Teams Research Group Director Relationship Specialty Start Date End Date Valencia Adhikari APRN [address] [place] [address] PCP - General 04/21/14 07/04/23 documented as of this encounter
--- OUTSIDE RECORDS SUMMARY | 2023-10-29 03:59 | XMS_ITS | Encounter Summary ---
Author Organization [facility] Address [facility] [place] [address] Care Team Providers Care Building Attendant Name Role Phone OnofreMarilyn pittshryn Oralia SLADE Primary Care Provider +1 [phone] Reason for Visit * Reason Onset Date Comments Medication Refill 03/22/2020 Encounter Details Date Type Department Care Team (Late st Contact Info) Description 03/22/2020 Refill Psychiatry [place] [address] Osmar South RN Depression, unspecified depression type; Anxiety 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 [...] Info) Description 05/23/2024 Hospital Encounter [place] [address] Maite Malloy MD [facility] [place]ST[place] [address] documented as of this encounter Visit Diagnoses Diagnosis Depression, unspecified depression type Anxiety Anxiety state, unspecified documented in this encounter Care Teams Building Attendant Relationship Specialty Start Date End Date Valencia Adhikari APRN [address] [place] [address] PCP - General 04/21/14 07/04/23 documented as of this encounter
--- OUTSIDE RECORDS SUMMARY | 2023-10-29 03:59 | XMS_ITS | Encounter Summary ---
[place] [address] Care Team Providers Care Wetlands Conservation Laborer Name Role Phone Valencia Adhikari APRN Primary Care Provider +1 [phone] Encounter Details Date Type Department Care Team (Late st Contact Info) Description 05/18/2020 Telephone Psychiatry and [place] [address] Sary Harris 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 Tobacco Use Types [...] * Telephone Encounter - Sary Reeves - 05/18/2020 12:14 PM EST Attempted to call patient to get patient seen sooner for therapy triage appointment. Phone went straight to voicemail and unable to leave a voicemail due to mailbox being full. documented in this encounter Plan of Treatment Upcoming Encounters Date Type Department Care Team (Late st Contact Info) Description 05/23/2024 [facility] [place] [address] Maite Malloy MD [facility] OBSTET[place] [address] documented as of this encounter Visit Diagnoses Not on filedocumented in this encounter Care Teams Wetlands Conservation Laborer Relationship Specialty Start Date End Date Valencia Adhikari APRN [address] [place] [address] PCP - General 04/21/14 07/04/23 documented as of this encounter
--- OUTSIDE RECORDS SUMMARY | 2023-10-29 03:59 | XMS_ITS | Encounter Summary ---
Author Organization [facility] [place] [address] Care Team Providers Care Take Up Operator Name Role Phone Valencia Adhikari APRN Primary Care Provider +1 [phone] Encounter Details Date Type Department Care Team (Late st Contact Info) Description 07/15/2020 Telephone Psychiatry [place] [address] Lisa Dickens, PhD 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 Tobacco Use [...] Telephone Encounter - Lisa Dickens, PhD - 07/15/2020 1:13 PM EDT Length of Call: < 5 minutes Reason for Call: Patient did not arrive for scheduled telehealth visit. Outcome: I left a message for patient and noted that if she gets the message she can join our videovisit and otherwise can plan to attend the next scheduled session on 07/22 or call our litigation support analyst at [phone]. Diagnosis: Borderline Personality Disorder; Unspecified Mood Disorder Plan: Pt will attend next scheduled visit on 07/22/20. documented in this encounter Plan of Treatment Upcoming Encounters Date Type Department Care Team (Late st Contact Info) Description 05/23/2024 Hospital [place] [address] Maite Malloy MD [facility] DR OBSTETRICS [place] [address] documented as of this encounter Visit Diagnoses Diagnosis Borderline personality disorder Unspecified mood (affective) disorder documented in this encounter Care Teams Take Up Operator Relationship Specialty Start Date End Date Valencia Adhikari APRN [address] [place] [address] PCP - General 04/21/14 07/04/23 documented as of this encounter
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
--- OUTSIDE RECORDS SUMMARY | 2023-10-29 03:59 | XMS_ITS | Encounter Summary ---
Author Organization [facility] Address [facility] [place] [address] Care Team Providers Care Molded Goods Spot Picker Name Role Phone Valencia Adhikari APRN Primary Care Provider [phone] [phone] Encounter Details Date Type Department Care Team (Late st Contact Info) Description 10/03/2018 Telephone Psychiatry [place] [phone] Argelia Mccray APRN [facility] [place] [address] 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 Tobacco Use Types Packs/Day Years [...] Telephone Encounter - Argelia Mccray APRN - 10/03/2018 1:34 PM EDT Returned client's phone call per request. Unable to reach client and left voicemail. Argelia Mccray APRN documented in this encounter Plan of Treatment Upcoming Encounters Date Type Department Care Team (Late st Contact Info) Description 05/23/2024 Hospital Encounter [place] [phone] Maite Malloy MD [facility] DR OBSTETRICS [place] [address] documented as of this encounter Visit Diagnoses Not on filedocumented in this encounter Care Teams Molded Goods Spot Picker Relationship Specialty Start Date End Date Valencia Adhikari APRN [address] [place] [address] PCP - General 04/21/14 07/04/23 documented as of this encounter
--- OUTSIDE RECORDS SUMMARY | 2023-10-29 03:59 | XMS_ITS | Encounter Summary ---
Author Organization [facility] [place] [address] Care Team Providers Care Form Setter Helper Name Role Phone OnofreMarilyn pittshryn Oralia SLADE Primary Care Provider [phone] [phone] Reason for Visit * Reason Onset Date Comments Medication Refill 10/26/2018 Encounter Details Date Type Department Care Team (Late st Contact Info) Description 10/26/2018 Refill Psychiatry [place] [phone] Argelia Mccray APRN [facility] [place] [address] Depression, unspecified depression type; Anxiety 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 [...] Contact Info) Description 05/23/2024 [place] [phone] Maite Malloy MD [facility] OBSTETRICS AND GYNECOLOGY [place], [place] [id number] documented as of this encounter Visit Diagnoses Diagnosis Depression, unspecified depression type Anxiety Anxiety state, unspecified documented in this encounter Care Teams Form Setter Helper Relationship Specialty Start Date End Date Valencia Adhikari APRN [address] [place] [address] PCP - General 04/21/14 07/04/23 documented as of this encounter
--- OUTSIDE RECORDS SUMMARY | 2023-10-29 03:59 | XMS_ITS | Encounter Summary ---
Author Organization [facility] Address [facility] [place] [address] Care Team Providers Care Patrol Agent Name Role Phone OnofreValencia pitts [place] Primary Care Provider [phone] [phone] Encounter Details Date Type Department Care Team (Late st Contact Info) Description 06/17/2020 Orders Only Psychiatry [place] [phone] Crispin Fuller MD [facility] [place] [address] 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 Tobacco Use Types Packs/Day Years [...] Contact Info) Description 05/23/2024 [place] [address] Maite Malloy MD [facility] [place] [address] documented as of this encounter Visit Diagnoses Not on filedocumented in this encounter Care Teams Patrol Agent Relationship Specialty Start Date End Date Valencia Adhikari APRN [address] [place] [address] PCP - General 04/21/14 07/04/23 documented as of this encounter
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
--- OUTSIDE RECORDS SUMMARY | 2023-10-29 03:59 | XMS_ITS | Encounter Summary ---
Author Organization [facility] Address [facility] [place] [address] Care Team Providers Care Pairer Odds Name Role Phone Valencia Adhikari APRN Primary Care Provider [phone] Encounter Details Date Type Department Care Team (Latest Contact Info) Description 06/14/2020 10:30 AM EST TH Visit (TeleHealth) Psychiatry [place] [phone] Crispin Fuller MD [facility] [place] [address] Unspecified mood (affective) disorder 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 Tobacco [...] Progress Notes * Crispin Fuller MD - 06/14/2020 10:30 AM EST ESTABLISHED ADULT PATIENT TELEHEALTH VISIT NOTE Time Spent: 30 mins Attendee(s): Patient This patient was seen with real estate sales supervisor Dr. Awad. See their note for confirmatory and/or revisionarydocumentation. Andree Hummel gave permission for and was seen for today's appointment with a Telehealth visit. During this visit they were located in [place]. Andree Hummel is aware that for any urgent matter they can call [phone]. Chief Complaint: a lot has been going on History of Present Illness: () (Quality, Severity, Duration, Timing, Context, Modifying factors, Associated S&S) Andree Hummel is a 29 y.o. female with history of depression, anxiety, and hyperthyroidism s/p thyroidectomy presenting for follow-up and medication management. -Since our last visit, Andree has contacted our team several times to endorse worsening mood and urges to self harm. She did not act on any of these urges and was referred for therapy eval. Andree has been unable to schedule an earlier therapy eval as of yet. -Today Andree endorses some improvements in her mood-Theres not a black cloud over my head anymore. -She finished her first term in college and did well. Feels that this has contributed to her improvement in mood. -Continues to endorse persistent anxiety. Has been using clonazepam up three times daily with some improvement in symptoms -Some sleep difficulty, though she feels that this is largely due to her work schedule which forcesher to work late. -substance use stable. -Denies any SI/HI Substance Use: Tobacco-Smokes pack per day Alcohol- a couple hard lemonades nightly Endorses Heroin and cocaine in the past, stopped 5 years ago Safety: Patient strongly denies suicidal [...] by mouth nightly. 30 tablet 2 ??? LORazepam (Ativan) 0.5 mg Tablet Take [...] me sleepy Gabapentin Hydroxyzine-didn't do anything Buspar 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: Lives with 7 year old son, two cats and a dog. 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 Vitals (24hr Range): No data found. Musculoskeletal System: normal gait and balance, ambulates independently and no atrophy Mental Status Exam: ?? Appearance: age appropriate and casually dressed, pink hair ?? Behavior: cooperative with the interview and calm ?? Speech: normal pitch, normal volume, normal rate and normal rhythm ?? Language: fluent in upper sorbian ?? Mood: better ?? Affect: constricted ?? Thought Process: linear [...] ?? Judgment: fair ?? Labs: Psychiatry Labs: Will order TSH to monitor thyroid levels Formulation and Assessment: Overall Formulation Andree endorses [...] feel strongly that she could benefit from psychotherapy though she has had difficulties finding a therapist that she connects with as of yet. A referral was made and Andree had been scheduled, but missed her first appointment. Diagnosis: Unspecified Depressive Disorder r/o borderline personality disorder CURRENT ASSESSMENT: Andree endorses multiple psychosocial stressors and continued rapid cycling moods with difficultieswith emotional regulation and distress tolerance. She has seen some benefit from her current medications, particularly mirtazapine, though has had difficult taking it regularly due to her inconsistent work schedule. Her symptoms are also concerning for underlying personality disorder and I feel that she could benefit from psychotherapy. Today Andree feels that her mood has improved slightly. We agreed to maintain her current medications without changes. Given her history of affective instability, we discussed that if her mood worsens could consider increasing mirtazapine to 30mg daily to target mood. For now she hopes to target her insomnia more than her mood so we will keep mirtazapine at 15mg daily for now. Continued to encourage her to check her thyroid function. TSH has been ordered. Safety Assessment: Andree strongly denies any suicidal ideation or recent self injurious behaviors.She agrees to present to the nearest ED if she were to develop intent or plan to harm herself. Plan: - Continue mirtazapine 7.5mg qhs (encouraged consistent use) - Continue Lamictal 300mg PO QD - Continue Effexor XR 300mg PO QD - Continue Ativan to 0.5mg PO TID PRN for anxiety - Encouraged getting TSH (lab ordered) - Encouraged follow-up with therapy - Follow-up 4-6 wks Patient Instruction/Education provided: Patient provided verbal instructions regarding medication side effects, safety plan in case of feeling unsafe. Patient understands the plan? Yes Signed By: Crispin Fuller MD 06/13/2020 * Jessica Awad MD - 06/14/2020 10:30 AM EST PSYCHIATRY TEACHING PHYSICIAN INVOLVEMENT Location: Adult Psychiatry Medication Clinic, [address] Attending Physician: Jessica Awad MD Resident name: [...] woman returning for follow-up of unspecified depressive disorder and question of BPD. In between visits, she has made several calls because of worsening mood and suicidal thoughts. Today, she reports some overall improvements. Mood is good. No suicidal ideation. She is happy she did well in a college class. No medication changes today. Jessica Awad MD documented in this encounter Plan of Treatment Upcoming Encounters Date Type Department Care Team (Late st Contact Info) Description 05/23/2024 Hospital [place] [phone] Maite Malloy MD [facility] DR OBSTETRICS [place] [address] documented as of this encounter Visit Diagnoses Diagnosis Unspecified mood (affective) disorder documented in this encounter Care Teams Pairer Odds Relationship Specialty Start Date End Date Valencia Adhikari APRN [address] [place] [address] PCP - General 04/21/14 07/04/23 documented as of this encounter
--- OUTSIDE RECORDS SUMMARY | 2023-10-29 03:59 | XMS_ITS | Encounter Summary ---
Author Organization [facility] [place] [address] Care Team Providers Care Group Leader Name Role Phone Valencia Adhikari APRN Primary Care Provider +1 [phone] Encounter Details Date Type Department Care Team (Latest Contact Info) Description 06/13/2021 3:00 PM EST TH Visit (TeleHealth) Psychiatry and Behavioral Health at [facility] [place] [phone] Lisa Dickens, PhD Unspecified mood (affective) disorder; [...] Progress Notes * Lisa Dickens, PhD - 06/13/2021 3:00 PM EST INDIVIDUAL THERAPY PROGRESS NOTE CPT CODE 69102 LOCATION: Telehealth visit. Andree Artislliams gave permission for and was seen for today's appointment with a Telehealth visit. During this visit she was located in her apartment in [place], [place]. Andree WallisKamranTamara is aware that for any urgent matter she can can contact her regional mental health crisis services. For patients located in [place]: www.[email or web address] or text/call . Forpatients located in [place]: [email or web address]. To reach their [facility] mental health clinician or the outpatient Department of Psychiatry clinics,patient can call [phone]. SESSION DURATION: 40 minutes ATTENDEES: Patient PRIMARY COMPLAINT/DIAGNOSIS: Borderline Personality Disorder; Unspecified Mood Disorder TREATMENT MODALITY: DBT PATIENT REPORT OF CURRENT FUNCTIONING/CHANGES: Patient reported: -doing okay, thinks a cyst burst over the weekend, hardly able to get out of bed due to pain, stillbleeding though the pain and bleeding have both reduced enough that patient does not wish to seek medical attention -enjoys spending time with goddaughter and son -unable to name anything she likes about herself CENTRAL THEME OF SESSION: Cognitive Skills IN-SESSION PROCEDURES: I provided empathic listening and validation. I encouraged patient to seek medical care or at least contact nurse helpline to describe her symptoms. We discussed patient's feelings of dislike towards herself and her automatic dismissal of any compliments toward herself. We talked about ways that she can begin to notice and then challenge that response. I identified characteristics that she may like about herself and she stated that there was one that she could agree with.We agreed that she would work to find at least one additional thing she likes about herself over the next week. CLINICAL FINDINGS: PROGRESS FROM BASELINE: same as [...] and was linear and goal-directed. Mood was okay, in pain and affect was dysthymic; full range, with [...] in the agreed upon activities. Next Appointment: 06/20/2021 Lisa Dickens, PhD documented in this encounter Plan of Treatment Upcoming Encounters Date Type Department Care Team (Late st Contact Info) Description 05/23/2024 [place] [address] [facility] [address] OBSTETRICS [place] [address] documented as of this encounter Visit Diagnoses Diagnosis Unspecified mood (affective) disorder Borderline personality disorder documented in this encounter Care Teams Group Leader Relationship Specialty Start Date End Date Valencia Adhikari APRN [address] [place] [address] PCP - General 04/21/14 07/04/23 documented as of this encounter
--- OUTSIDE RECORDS SUMMARY | 2023-10-29 03:59 | XMS_ITS | Encounter Summary ---
Author Organization [facility] [place] [address] Care Team Providers Care .Net Developer Name Role Phone OnofreMarilynValencia Oralia SLADE Primary Care Provider [phone] [phone] Reason for Visit * Reason Onset Date Comments Medication Refill 10/26/2018 Encounter Details Date Type Department Care Team (Late st Contact Info) Description 10/26/2018 Refill [place] [phone] Alicia Oviedo APRN [facility] [place] [address] Left shoulder pain, unspecified chronicity 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 [...] Contact Info) Description 05/23/2024 [place] [phone] Maite Malloy MD [facility] OBSTET[place] [address] documented as of this encounter Visit Diagnoses Diagnosis Left shoulder pain, unspecified chronicity documented in this encounter Care Teams .Net Developer Relationship Specialty Start Date End Date Valencia Adhikari APRN [address] [place] [address] PCP - General 04/21/14 07/04/23 documented as of this encounter
--- OUTSIDE RECORDS SUMMARY | 2023-10-29 03:59 | XMS_ITS | Encounter Summary ---
Author Organization [facility] [place] [address] Care Team Providers Care Hide Buyer Name Role Phone Valencia Adhikari APRN Primary Care Provider [phone] [phone] Encounter Details Date Type Department Care Team (Late st Contact Info) Description 05/07/2020 Telephone Psychiatry [place] [address] Mary Bateman 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 Tobacco Use Types [...] Contact Info) Description 05/23/2024 [place] [address] Maite Malloy MD [facility] OBSTETRICS [place] [address] documented as of this encounter Visit Diagnoses Not on filedocumented in this encounter Care Teams Hide Buyer Relationship Specialty Start Date End Date Valencia Adhikari APRN [address] [place] [address] PCP - General 04/21/14 07/04/23 documented as of this encounter
--- OUTSIDE RECORDS SUMMARY | 2023-10-29 03:59 | XMS_ITS | Encounter Summary ---
Author Organization [facility] [place] [address] Care Team Providers Care Manufacturing Coordinator Name Role Phone Valencia Adhikari APRN Primary Care Provider [phone] [phone] Encounter Details Date Type Department Care Team (Latest Contact Info) Description 05/16/2021 3:00 PM EST TH Visit (TeleHealth) Psychiatry and Behavioral Health at [facility] [place] [phone] Lisa Dickens, PhD Unspecified mood (affective) disorder; [...] Progress Notes * Lisa Dickens, PhD - 05/16/2021 3:00 PM EST INDIVIDUAL THERAPY PROGRESS NOTE CPT CODE 56258 LOCATION: Telehealth visit. Andree Artislliams gave permission for and was seen for today's appointment with a Telehealth visit. During this visit she was located in her apartment in [place], [place]. Andree WallisKamranTamara is aware that for any urgent matter she can can contact her regional mental health crisis services. For patients located in [place]: [email or web address] or text/call . Forpatients located in [place]: [email or web address]. To reach their [facility] mental health clinician or the outpatient Department of Psychiatry clinics,patient can call [phone]. SESSION DURATION: 40 minutes ATTENDEES: Patient PRIMARY COMPLAINT/DIAGNOSIS: Borderline Personality Disorder; Unspecified Mood Disorder TREATMENT MODALITY: DBT PATIENT REPORT OF CURRENT FUNCTIONING/CHANGES: Patient reported: -exhausted, one day this week she slept until 3PM and fell back to sleep at 9PM -was able to get up 4x this week and engage in planned activities such as doing her makeup, dying her hair, etc. -she also focused on identifying unhelpful thoughts and replacing them with more helpful thoughts, which she found a bit unnatural -hopeful for the future, but still waiting for the other shoe to drop, waiting on results of Celiactest CENTRAL THEME OF SESSION: Behavioral Activation. IN-SESSION PROCEDURES: I provided empathic listening and validation. We discussed her homework fromlast week and what it felt like to follow through on the homework. We also talked about her difficulty in remaining active and not sleeping. I asked patient about what would look different if things were better and she reported that she wouldn't be sitting in a dark room and going back to bed afterour session. We explored the steps she is taking to work towards her goals and care for her physical and mental health. We set a new homework goal for this week for patient to engage in activities 5xthis coming week and to continue replacing unhelpful thoughts with helpful ones. I normalized her ex perience of feeling a bit awkward with changing the way she talks to herself and noted that will fade with time as she creates new messages. CLINICAL FINDINGS: PROGRESS FROM BASELINE: same as [...] and was linear and goal-directed. Mood was exhuasted and affect was dysthymic; full range,with variation as was appropriate to session content. [...] in the agreed upon activities. Next Appointment: 05/23/2021 Lisa Dickens, PhD documented in this encounter Plan of Treatment Upcoming Encounters Date Type Department Care Team (Late st Contact Info) Description 05/23/2024 [place] [address] Maite Malloy MD [facility] OBSTET[place] [address] documented as of this encounter Visit Diagnoses Diagnosis Unspecified mood (affective) disorder Borderline personality disorder documented in this encounter Care Teams Manufacturing Coordinator Relationship Specialty Start Date End Date Valencia Adhikari APRN [address] [place] [address] PCP - General 04/21/14 07/04/23 documented as of this encounter
--- OUTSIDE RECORDS SUMMARY | 2023-10-29 03:59 | XMS_ITS | Encounter Summary ---
Author Organization [facility] Address [facility] [place] [address] Care Team Providers Care Measurement Specialist Name Role Phone OnofreValencia pitts [place] Primary Care Provider +1 [phone] Encounter Details Date Type Department Care Team (Late st Contact Info) Description 05/14/2020 Orders Only Psychiatry [place] [phone] Crispin Fuller MD [facility] [place] [address] 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 Tobacco Use Types Packs/Day Years [...] Contact Info) Description 05/23/2024 [place] [address] Maite Malloy MD [facility] OBSTETRICS [place] [address] documented as of this encounter Visit Diagnoses Not on filedocumented in this encounter Care Teams Measurement Specialist Relationship Specialty Start Date End Date Valencia Adhikari APRN [address] [place] [address] PCP - General 04/21/14 07/04/23 documented as of this encounter
--- OUTSIDE RECORDS SUMMARY | 2023-10-29 03:59 | XMS_ITS | Encounter Summary ---
Author Organization [facility] Address [facility] [place] [address] Care Team Providers Care Summons Server Name Role Phone Valencia Adhikari APRN Primary Care Provider [phone] [phone] Encounter Details Date Type Department Care Team (Late st Contact Info) Description 05/03/2020 10:30 AM EST TH Visit (TeleHealth) Psychiatry [place] [phone] Crispin Fuller MD [facility] [place] [address] Hyperthyroidism 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 Tobacco Use Types Packs/Day Years [...] Progress Notes * Crispin Fuller MD - 05/03/2020 10:30 AM EST ESTABLISHED ADULT PATIENT TELEHEALTH VISIT NOTE Time Spent: 30 mins Attendee(s): Patient This patient was seen with quarter supervisor Dr. Awad. See their note for confirmatory and/or revisionarydocumentation. Andree Hummel gave permission for and was seen for today's appointment with a Telehealth visit. During this visit they were located in [place]. Andree Hummel is aware that for any urgent matter they can call [phone]. Chief Complaint: a lot has been going on History of Present Illness: () (Quality, Severity, Duration, Timing, Context, Modifying factors, Associated S&S) Andree Hummel is a 29 y.o. female with history of depression, anxiety, and hyperthyroidism s/p thyroidectomy presenting for follow-up and medication management. -Reports she has been busy since we last spoke. She lost her job at [employer],and started working at [employer]. Endorses multiple psychosocial stressors including father with worseningmedical conditions, home schooling children, career instability, and inconsistent schedule due to work. She also reports that the father of her child has recently re-entered her life and this has caused some distress. In this context she reports her mood has been not great. Despite this, she denies any sucidal ideation or self injurious behaviors. She reports that mirtazapine has been helpful when she takes it, but has been unable to take it consistently due to her erratic night time schedule with work. She notes that when she takes the medication she sleeps well. Denies any periods of elevated mood, decreased need for sleep and no delusional thinking is elicited. Andree was recently scheduled for a therapy intake visit, however overslept the appointment. She has rescheduled for June and is looking forward to engaging in therapy, as she feels she would benefit from improved coping skills given all of her current stressors. Substance Use: Tobacco-Smokes pack per day Alcohol- [...] 1 tablet by mouth nightly. 30 tablet 0 ??? LORazepam (Ativan) 0.5 mg Tablet Take [...] cats and a dog. 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 Vitals (24hr Range): No data found. Musculoskeletal System: normal gait and balance, ambulates independently and no atrophy Mental Status Exam: ?? Appearance: age appropriate and casually dressed ?? Behavior: cooperative with the interview and calm ?? Speech: normal pitch, normal volume, normal rate and normal rhythm ?? Language: fluent in persian ?? Mood: not great ?? Affect: initially bright, becomes increasingly labile discussing stressors ?? Thought Process: linear and logical ?? [...] erning for underlying personality disorder. I feel stro that she could benefit from psychotherapy though [...] feel that she could benefit from psychotherapy. A referral was made and Andree had been scheduled, but missed her first appointment after oversleeping. She has rescheduled for June and we discussed looking at [facility] if she feels she needs therapy sooner. Given her history of hypothyroidism will order TSH, as this may contribute to her affective instability. Safety Assessment: Andree strongly denies any suicidal [...] anxiety - Encourage testing thyroid levels - Encouraged follow-up with therapy - Follow-up 06/14 at 10:30 AM Patient Instruction/Education provided: Patient provided verbal instructions regarding medication side effects, safety plan in case of feeling unsafe. Patient understands the plan? Yes Signed By: Crispin Fuller MD 05/03/2020 * Jessica Awad MD - 05/03/2020 10:30 AM EST PSYCHIATRY TEACHING PHYSICIAN INVOLVEMENT Location: Adult Psychiatry Medication Clinic, [facility] Attending Physician: Jessica Awad [...] woman returning for follow-up of unspecified depressive disorder. At most recent visit, added mirtazapine to Lamictal and Effexor. 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 No suicidal ideation. Having difficulty taking medication consistently. No medication changes today--focus on regular adherence first. Jessica Awad MD documented in this encounter Plan of Treatment Upcoming Encounters Date Type Department Care Team (Late st Contact Info) Description 05/23/2024 [place] [address] Maite Malloy MD [facility] OBSTETR[place] [address] documented as of this encounter Visit Diagnoses Diagnosis Hyperthyroidism Thyrotoxicosis without mention of goiter or other cause, without mention of thyrotoxic crisis or storm documented in this encounter Care Teams Summons Server Relationship Specialty Start Date End Date Valencia Adhikari APRN [address] [place] [address] PCP - General 04/21/14 07/04/23 documented as of this encounter
--- OUTSIDE RECORDS SUMMARY | 2023-10-29 03:59 | XMS_ITS | Encounter Summary ---
Author Organization [facility] Address [facility] [place] [address] Care Team Providers Care Proofing Machine Operator Name Role Phone Valencia Adhikari APRN Primary Care Provider +1 -[phone] Encounter Details Date Type Department Care Team (Late st Contact Info) Description 05/14/2020 Telephone Psychiatry [place] [address] Crispin Fuller MD [facility] [place] [address] 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 Tobacco Use Types Packs/Day Years [...] encounter Miscellaneous Notes * Telephone Encounter - Jessica Awad MD - 05/14/2020 11:03 AM EST Noted, thanks for keeping me in the loop. * Telephone Encounter - Crispin Fuller MD - 05/14/2020 8:49 AM EST Spoke with Andree this morning after she sent a message reporting continued mood instability. Todaywillie denies any urges to self harm or suicidal ideation. Andree agrees to present to the nearest ED if she develops suicidal ideation with intent or plan to harm herself. We discussed that her team is working to schedule her for a therapy triage visit. She is aware thatthis is a triage visit and that there may be a wait after which until she can access further services. We have discussed pursuing other options via psychology today, however she reports a desire to continue with the process to go to [facility] for therapy. She requested options to consider prior to her appointment, and we discussed increasing her mirtazapine to 15mg nightly to target mood, as we had considered this option at her last visit. She is amenable to this change. documented in this encounter Plan of Treatment Upcoming Encounters Date Type Department Care Team (Late st Contact Info) Description 05/23/2024 [place] [address] Maite Malloy MD [facility] [address] [place]ST[place] [address] documented as of this encounter Visit Diagnoses Not on filedocumented in this encounter Care Teams Proofing Machine Operator Relationship Specialty Start Date End Date Valencia Adhikari APRN [address] [place] [address] PCP - General 04/21/14 07/04/23 documented as of this encounter
--- OUTSIDE RECORDS SUMMARY | 2023-10-29 03:59 | XMS_ITS | Encounter Summary ---
Author Organization [facility] [place] [address] Care Team Providers Care Telemetry Monitor Name Role Phone Valencia Adhikari APRN Primary Care Provider +1 [phone] Encounter Details Date Type Department Care Team (Late st Contact Info) Description 04/19/2020 Telephone Psychiatry [place] [phone] Lisa Dickens, PhD 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 Tobacco Use [...] Telephone Encounter - Lisa Dickens, PhD - 04/19/2020 9:11 AM EST Length of Call: <5 minutes Reason for Call: Patient did not arrive at her scheduled virtual visit. Outcome: I called patient and was unable to reach her or leave a voicemail as the voicemail box wasfull. Diagnosis: Unspecified Mood Disorder (per chart: patient was scheduled for initial evaluation with me) Plan: Patient can contact schedulers at [phone] to reschedule if she is still interested in anevaluation or psychotherapy through the Psychiatry Department. documented in this encounter Plan of Treatment Upcoming Encounters Date Type Department Care Team (Late st Contact Info) Description 05/23/2024 Hospital Encounter Birthing [facility] [place] [address] Maite Malloy MD [facility] DR OBSTETRICS [place] [address] documented as of this encounter Visit Diagnoses Diagnosis Unspecified mood (affective) disorder documented in this encounter Care Teams Telemetry Monitor Relationship Specialty Start Date End Date Valencia Adhikari APRN [address] [place] [address] PCP - General 04/21/14 07/04/23 documented as of this encounter
--- OUTSIDE RECORDS SUMMARY | 2023-10-29 03:59 | XMS_ITS | Encounter Summary ---
Author Organization [facility] Address [facility] [place] [address] Care Team Providers Care High Voltage Electrician Name Role Phone Valencia Adhikari APRN Primary Care Provider +1 [phone] Encounter Details Date Type Department Care Team (Late st Contact Info) Description 05/06/2020 Telephone Psychiatry [place] [address] Flora Lyon [facility] [place] [address] 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 Tobacco Use Types Packs/Day Years [...] encounter Miscellaneous Notes * Telephone Encounter - Flora Lyon LICSW - 05/06/2020 5:18 PM EST Pt called the crisis line stating she was not suicidal but was having urges to cut and did not knowwhat to do. Pt stated she did not have any previously learned tools to deal with this and it had been a long time since she had any urges this strong. She has removed anything she could use to cut herself. Expresses feeling safe otherwise, again denying SI/HI. 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 Discussed some tools that she could try in the moment. Pt willing to do this. Also mentioned to pt that she had missed an appointment with Dr. Lisa Dickens @2 weeks ago and she stated that she would like to see Dr. Dickens if another appointment is possible. T/w will put in a referral. documented in this encounter Plan of Treatment Upcoming Encounters Date Type Department Care Team (Late st Contact Info) Description 05/23/2024 [place] [address] Maite Malloy MD [facility] OBSTETRICS [place] [address] documented as of this encounter Visit Diagnoses Not on filedocumented in this encounter Care Teams High Voltage Electrician Relationship Specialty Start Date End Date Valencia Adhikari APRN [address] [place] [address] PCP - General 04/21/14 07/04/23 documented as of this encounter
--- OUTSIDE RECORDS SUMMARY | 2023-10-29 03:59 | XMS_ITS | Encounter Summary ---
Author Organization [facility] Address [facility] [place] [address] Care Team Providers Care Intern Brand Name Role Phone OnofreValencia pitts [place] Primary Care Provider +1 -[phone] Reason for Visit * Reason Onset Date Comments Medication Refill 04/22/2020 Encounter Details Date Type Department Care Team (Late st Contact Info) Description 04/22/2020 Refill Psychiatry [place] [address] Crispin Fuller MD [facility] [place] [address] Depression, unspecified depression type; Anxiety 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 [...] Contact Info) Description 05/23/2024 Hospital [place] [address] Maite Malloy MD [facility] OBSTETRICS [place] [address] documented as of this encounter Visit Diagnoses Diagnosis Depression, unspecified depression type Anxiety Anxiety state, unspecified documented in this encounter Care Teams Intern Brand Relationship Specialty Start Date End Date Valencia Adhikari APRN [address] [place] [address] PCP - General 04/21/14 07/04/23 documented as of this encounter
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
--- OUTSIDE RECORDS SUMMARY | 2023-10-29 03:59 | XMS_ITS | Encounter Summary ---
Author Organization [facility] [place] [address] Care Team Providers Care Senior Vice President Name Role Phone OnofreValencia pitts Oralia SLADE Primary Care Provider [phone] Encounter Details Date Type Department Care Team (Late st Contact Info) Description 07/21/2019 Orders Only Psychiatry [place] [id number] Argelia Mccray APRN [facility] [place] [address] Depression, unspecified depression type; Anxiety 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 [...] Contact Info) Description 05/23/2024 Hospital [place] [address] Maite Malloy MD [facility] OBSTETR[place] [address] documented as of this encounter Visit Diagnoses Diagnosis Depression, unspecified depression type Anxiety Anxiety state, unspecified documented in this encounter Care Teams Senior Vice President Relationship Specialty Start Date End Date Valencia Adhikari APRN [address] [place] [address] PCP - General 04/21/14 07/04/23 documented as of this encounter
--- OUTSIDE RECORDS SUMMARY | 2023-10-29 03:59 | XMS_ITS | Encounter Summary ---
Author Organization [facility] Address [facility] [place] [address] Care Team Providers Care Shingle Bolt Cutter Name Role Phone Valencia Adhikari APRN Primary Care Provider [phone] Encounter Details Date Type Department Care Team (Late st Contact Info) Description 05/11/2020 Telephone Psychiatry [place] [phone] Crispin Fuller MD [facility] [place] [address] 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 Tobacco Use Types Packs/Day Years [...] encounter Miscellaneous Notes * Telephone Encounter - Crispin Fuller MD - 05/11/2020 2:13 PM EST Spoke with Andree this afternoon after she sent a message endorsing continued struggles with depression in the context of multiple psychosocial stressors. At the time of call she reports that she is doing ok right now. She has dealt with intermittent self harm urges over the last several days which led her to call the crisis line x2. She denies any acute suicidal thoughts or intent/plan to harmherself. She is hopeful to get scheduled for therapy as soon as possible. She is attempting to utilize coping skills and agrees to reach out if she develops urges for self harm. She was encouraged topresent to the ED if she develops suicidal thoughts with intent or plan and she agreed to do so if n eeded. documented in this encounter Plan of Treatment Upcoming Encounters Date Type Department Care Team (Late st Contact Info) Description 05/23/2024 Hospital [place] [address] Maite Malloy MD [facility] [address] [place] [address] documented as of this encounter Visit Diagnoses Not on filedocumented in this encounter Care Teams Shingle Bolt Cutter Relationship Specialty Start Date End Date Valencia Adhikari APRN [address] [place] [address] PCP - General 04/21/14 07/04/23 documented as of this encounter
--- OUTSIDE RECORDS SUMMARY | 2023-10-29 03:59 | XMS_ITS | Encounter Summary ---
Author Organization [facility] [address] Care Team Providers Care Senior Reservations Agent Name Role Phone Valencia Adhikari APRN Primary Care Provider [phone] Encounter Details Date Type Department Care Team (Late st Contact Info) Description 05/10/2021 Telephone [place] [address] Maite Goff RN 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 Tobacco Use Types Packs/Day [...] encounter Miscellaneous Notes * Telephone Encounter - Maite Goff RN - 05/11/2021 12:51 PM EST Please let her know that lab after the visit on 05/06/21 showed : --good FT4 1.23 and borderline suppressed TSH 0.32 (down from 127) at the high thyroid end now => ok to taper synthroid 200 mcg Sun-Sun and 0.5 tab on Sundays --low 25vitamin D at 16.1 (normal 30-100). So, pt should take vitamin-D 50,000 iu weekly as we gretel-prescribed. --Low normal B12 at 314 (optimal 400-1000) so she should take extra OTC-B12 500 mcg daily -- normal iron 50 with borderline low iron saturation at 18% (normal 20-50%) => ok to take iron sulfate 325 mg after dinner with vitamin C to enhance iron absorption daily. I also added this info into her recent consult note & AVS so she can see all the numbers easilytoo. All prescriptions were efaxed to her local pharmacy. Thanks for letting her know. CLOTILDE SHUKLA MD * Telephone Encounter - Maite Goff RN - 05/10/2021 11:28 AM EST Patient called looking for interpretation of lab results she had performed last week. Upon further chart inspection, lab results are available in the chart for review. documented in this encounter Plan of Treatment Upcoming Encounters Date Type Department Care Team (Late st Contact Info) Description 05/23/2024 [place] [address] Maite Malloy MD [facility] [address] OBSTETRICS [place] [address] documented as of this encounter Visit Diagnoses Not on filedocumented in this encounter Care Teams Senior Reservations Agent Relationship Specialty Start Date End Date Valencia Adhikari APRN [address] [place] [address] PCP - General 04/21/14 07/04/23 documented as of this encounter
--- OUTSIDE RECORDS SUMMARY | 2023-10-29 03:59 | XMS_ITS | Encounter Summary ---
Author Organization [facility] [place] [address] Care Team Providers Care Md Urologist Name Role Phone Valencia Adhikari APRN Primary Care Provider [phone] Encounter Details Date Type Department Care Team (Latest Contact Info) Description 08/19/2020 1:00 PM EDT TH Visit (TeleHealth) Psychiatry [place] [phone] Lisa Dickens, PhD Borderline personality disorder; Unspecified [...] Progress Notes * Lisa Dickens, PhD - 08/19/2020 1:00 PM EDT INDIVIDUAL THERAPY PROGRESS NOTE CPT CODE 19393 LOCATION: Telehealth. Andree Artislliams gave permission for and was seen for today's appointment with a Telehealth visit. During this visit she was located in her apartment in [place], [place]. Andree WallisVishalTamara is aware that for any urgent matter she can call [phone]. SESSION DURATION: 50 minutes ATTENDEES: Patient PRIMARY COMPLAINT/DIAGNOSIS: Borderline Personality Disorder; Unspecified Mood Disorder TREATMENT MODALITY: DBT PATIENT REPORT OF CURRENT FUNCTIONING/CHANGES: Patient reported: -pretty shitty, mom threatened to call DCF on patient because she feels patient is not keeping her home clean enough for son, patient stated home is messy but not dirty/unclean -mom also upset that patient's work/sleep schedule means she wasn't always up with son in the AM and mom did not like when patient was homeschooling son, he has been back in school for past 2-3 months, having some difficulties at school, hard to know what is really happening, son's story is different from school's -Life worth living: double wide trailer [place] acres that patient owns; 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 IN-SESSION PROCEDURES: I provided empathic listening and validation. I asked patient about her mother's concerns to get a better understanding of the situation and ensure that there was no neglect orabuse occurring and based on patient's report there is no current abuse or neglect. I asked patientabout her goals so that we know what to work towards and so we can begin to identify the behaviors that are getting in the way of her life worth living. We also set a small goal for this week with a plan to start a Diary Card next week. CLINICAL FINDINGS: PROGRESS FROM BASELINE: [...] hallucinations ASSESSMENT/OBSERVATIONS: Patient arrived at the appointment a few minutes late and unaccompanied. She was appropriately dressed and groomed and appeared her stated age. Speech was normal in rate, rhythm, volume, and tone and was linear and goal-directed. Eye contact was good. Mood was pretty shitty and affect was somewhat labile and full [...] patient of the Psychiatry Crisis number. Homework: Knit for 1 hour 3-4x over the next week. If she finds herself getting distracted, bored, or impatient she will bring her attention back to the knitting. Next Appointment: 08/26/2020 Lisa Dickens, PhD documented in this encounter Plan of Treatment Upcoming Encounters Date Type Department Care Team (Late st Contact Info) Description 05/23/2024 [place] [address] Maite Malloy MD [facility] [address] OBSTETRICS [place] [address] documented as of this encounter Visit Diagnoses Diagnosis Borderline personality disorder Unspecified mood (affective) disorder documented in this encounter Care Teams Md Urologist Relationship Specialty Start Date End Date Vaelncia Adhikari APRN [address] [place] [address] PCP - General 04/21/14 07/04/23 documented as of this encounter
--- OUTSIDE RECORDS SUMMARY | 2023-10-29 04:00 | XMS_ITS | Encounter Summary ---
Author Organization [facility] Address [facility] [place] [address] Care Team Providers Care Control Manager Name Role Phone Valencia Adhikari APRN Primary Care Provider [phone] Reason for Visit * Reason Comments Follow-up left shoulder pain Encounter Details Date Type Department Care Team (Late st Contact Info) Description 07/13/2017 1:00 PM EDT Office [place] [phone] Meliton Larkin PA [facility] [place] [address] Chronic left shoulder pain 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 Tobacco Use Types Packs/Day Years Used Date Smoking Tobacco: Former Cigarettes 0.5 4 0 10/01/2012 - 10/01/2016 Smokeless Tobacco: Never Alcohol Use Standard Drinks/Week Comments Yes 0 (1 standard drink = 0.6 oz pur e alcohol) Minimal Sex and Gender Information Value Date Recorded Sex Assigned at Female 10/12/2023 9:44 AM EDT Gender Identity Female 10/12/2023 9:44 AM EDT Sexual Orientation Straight 10/12/2023 9: 44 AM EDT documented as of this encounter Last Filed Vital Signs Vital Sign Reading Time Taken Comments Blood Pressure 123/72 07/13/2017 12:52 PM EDT Pulse 70 07/13/2017 12:52 PM EDT Temperature - - Respiratory Rate - - Oxygen Saturation - - Inhaled Oxygen Concentration - - Weight 90.7 kg (200 lb) 07/13/2017 12:52 PM EDT verbal Height 172.7 cm (5' 8) 07/13/2017 12:52 PM EDT verbal Body Mass Index 30.41 07/13/2017 12:52 PM EDT documented in this encounter Progress Notes * Meliton Larkin PA - 07/13/2017 1:00 PM EDT Subjective: Andree Hummel is a 27 y.o. right handed female here for reevaluation and treatment left shoulder pain. The pain is described as aching and throbbing. The onset of the pain was sudden, related to work. Mechanism of injury: fall. The pain occurs continuously. Location is anterior, posterior. No history of dislocation. Symptoms are aggravated by all activities. Symptoms are diminishedby a previous steriod injection, avoiding the painful activities. Limited activities include: work at or above shoulder height. mild stiffness, no weakness, no swelling, no crepitus noted is reported. Patient's medications, allergies, past medical, surgical, social and family histories were reviewedand updated as appropriate. ROS: Denies fevers, chills, night sweats, nausea, or vomiting. Objective: General: alert, appears stated age and cooperative Gait: Normal Left Shoulder Bruising: absent Crepitus: absent Joint Tenderness: biceps tendon, posterior acromial Effusion: none present Biceps Tendon Rupture: absent Winging Scapula: negative Active ROM: forward flexion 180/180, extension 45/45 Neer: positive Camargo positive Stability: normal Apprehension Sign: negative/negative Atrophy: none noted Strength: biceps 5/5, triceps 5/5, abduction 5/5, adduction 5/5 Assessment: left shoulder impingement and biceps tendonitis Plan: Continue with existing conservative treatment program Questions solicited and answered Follow up as needed EBONI MOLINA documented in this encounter Plan of Treatment Upcoming Encounters Date Type Department Care Team (Late st Contact Info) Description 05/23/2024 Hospital [place] [address] Maite Malloy MD [facility] [place] [address] documented as of this encounter Visit Diagnoses Diagnosis Chronic left shoulder pain Pain in joint, shoulder region documented in this encounter Care Teams Control Manager Relationship Specialty Start Date End Date Valencia Adhikari APRN [address] [place] [address] PCP - General 04/21/14 07/04/23 documented as of this encounter
--- OUTSIDE RECORDS SUMMARY | 2023-10-29 04:00 | XMS_ITS | Encounter Summary ---
Author Organization [facility] Address [facility] [place] [address] Care Team Providers Care Women'S Basketball Coach Name Role Phone Vaelncia Adhikari APRN Primary Care Provider [phone] Reason for Visit * Consultation (Routine) - Closed Specialty Diagnoses / Procedures Referred By Lamont riggins Referred To Contact Gastroenterology Diagnoses IRREGULAR BOWEL HABITS Valencia Adhikari APRN [address] [place] [address] [facility] [address] [place] [address] Referral ID Status Reason Start Date Expiration Date V isits Requested Visits Authorized [id number] Closed Consult, Test & Treat Connection [facility] 09/11/2017 09/11/2018 1 1 Encounter Details Date Type Department Care Team (Late st Contact Info) Description 10/16/2017 10:00 AM EDT Office [place] [phone] Eilnor Fisher [place] [facility] [place] [address] Abdominal bloating; Diarrhea, unspecified type; IgA deficiency 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 Tobacco Use Types Packs/Day Years [...] Sign Reading Time Taken Comments Blood Pressure 129/76 10/16/2017 10:10 AM EDT Pulse 99 10/16/2017 10:10 AM EDT Temperature - - Respiratory Rate - - Oxygen Saturation - - Inhaled Oxygen Concentration - - Weight 97.6 kg (215 lb 1.6 oz) 10/16/2017 10:10 AM EDT Height - - Body Mass Index 32.71 10/15/2017 1:39 PM EDT documented in this encounter Patient Instructions * Patient Instructions* Elinor Fisher - 10/16/2017 10:00 AM EDT Thank you for coming in today. Here is a summary of what we discussed: 1. Schedule upper endoscopy with anesthesia 2. Submit stool sample to your local lab. Please let me know when/where you send it 3. Labs- can do locally 4. Follow up appointment in 3 months, after testing documented in this encounter Progress Notes * Elinor Fisher - 10/16/2017 10:00 AM EDT Gastroenterology & Hepatology New Patient Consultation Note PCP: Valencia Adhikari APRN Requesting Provider: Valencia Adhikari APRN Reason for consultation: Andree WallisVishalTamara is a 27 y.o. female with medical history significant for depression, migraines, post-surgical hypothyroidism, s/p thyroid cancer. I am seeing her as a new patient today in consult for question of irregular bowel habits, Celiac disease. Subjective: HPI: She is here for inconclusive Celiac serology testing and would like to be evaluated for Celiac disease. She had a thyroidectomy in 2010 and has been on levothyroxine for the past 7 years, with thyroid hormone levels fluctuating significantly over this time. Thyroid has never stabilized. She has not tried gluten free diet as it is too expensive. But she will do it if she has to. Bowel habits: multiple times daily, loose diarrhea, sometimes explosive. Or has a very hard stoolif she does not have BM in 12 hrs. No blood, black/tarry stools. Has lower abd cramping associated with BM. Does not wake with urge for BM at night. Endorses episodes of nausea, pain, constantly having to go to the bathroom curled up under a blanket. Has chills, sometimes sweats. Does not know about fevers. Has some acid-tasting regurgitation. Has hx acid reflux, not bad now. Not much heartburn. Knows triggers to avoid (spicy foods, dairy, green vegetables). Not much upper abd pain. A lot of gas, bloating. She had an EGD and colonoscopy done (she thinks in [place]) around age 17 (I do not have results). Reports they found colon polyps and evidence of severe acid reflux. Was told she had IBS. Weight: fluctuates drastically Appetite: fluctuates. Can go several days without eating much d/t not being hungry. Then has huge appetite. Diagnostic studies: Labs 08/28/17: TSH 19.33, fT4 1.12 (wnl). IgA 50 (85-499), TTG IgA < 1.2 (wnl). 11/16/16: CBC with MCV 100.2, otherwise nl. CMP wnl Labs 10/04/17: TSH 0.90, fT4 1.74 (h) ROS: Constitutional: + weight fluctuations, fatigue, Denies fever Eyes: Denies red or painful eyes ENT: Denies dysphagia, odynophagia Resp: Denies cough, shortness of breath, wheezing Cardio: Denies chest pain, palpitations : + occasional pain, frequency, hx of UTIs Integumentary: Denies new rashes, sores, lesions GI: see HPI Musculoskeletal: + left shoulder injury Psych: + depression, BP, anxiety Neuro: + ongoing headaches ALL/IMMUNO: + Seasonal allergies. MEDICAL HISTORY: Patient Active Problem List Diagnosis Code ??? Depression F32.9 ??? Hypothyroidism, postsurgical s/p thyroid cancer E89.0 ? ? 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 Left knee pain M25.562 ??? Intractable chronic migraine without aura G43.719 ??? IUD (intrauterine device) in place Z97.5 ??? Chronic left shoulder pain M25.512, G89.29 ??? Biceps tendinitis, left M75.22 ??? Scapular dyskinesis G25.89 CURRENT MEDICATIONS: ??? busPIRone (BUSPAR) 10 mg Tablet ??? lamoTRIgine (LAMICTAL) 150 mg Tablet ??? buPROPion (WELLBUTRIN XL) 150 mg Tablet Extended Release 24 hr ??? QUEtiapine (SEROQUEL) 25 mg Tablet ??? lidocaine (LIDODERM) 5 % Adhesive Patch, Medicated ??? levothyroxine (SYNTHROID) 200 mcg Tablet ??? levonorgestrel (MIRENA) 20 mcg/24 hr (5 years) IUD NSAIDs PRN for menstrual cramps ALLERGIES: Allergies Allergen Reactions ??? Demerol [Meperidine] Anaphylaxis ??? Dilaudid [Hydromorphone (Bulk)] Hives SURGICAL HISTORY: Past Surgical History: Procedure Laterality Date ??? COLONOSCOPY found polyps ??? PRG SOMATOSENSORY TEST, ANY/ALL PER. NERVES, TRUNK OR HEAD 03/22/2011 FACIAL NERVE MONITORING, SETUP performed by JUAN ESPARZA at [facility] MAIN OR ??? PRO THYROIDECTOMY, NYD[facility], [facility] NECK SURG 03/22/2011 THYROIDECTOMY, FOR MALIGNANCY, LIMITED NECK DISSECTION performed by JUAN ESPARZA at [facility] MAIN OR ??? TONSILLECTOMY 2010 ??? UPPER GASTROINTESTINAL ENDOSCOPY for IBS, celiac excluded ??? WISDOM TOOTH EXTRACTION SOCIAL HISTORY: Single, 1 son who is 5 yrs old, on disability currently HABITS: Alcohol: social Tobacco: quit 1 month ago. Prior use: 5 cigarettes daily to 1.5 PPD Drug use: daily marijuana for anxiety and nausea. Hx narcotic use, sober 7 yrs. FAMILY HISTORY: Maternal uncle- celiac disease Mom- Parkinson's, follows GF diet Sister - thyroid disorder There is no known family history of inflammatory bowel disease or GI cancer (esophagus, stomach, colon). There is no history of liver or pancreas disease. Objective: PHYSICAL EXAMINATION: Most Recent Vitals: 10/16/17 1010 BP: 129/76 Pulse: 99 Body mass index is 32.71 kg/(m^2). GEN: Alert, well-appearing, no acute distress. Appears stated age. Cooperates and answers questionsappropriately. SKIN: No rashes or abnormal lesions. NECK: No lymphadenopathy, thyromegaly. HEENT: Normal sclera, PERRL, oropharynx clear without ulceration or lesions. LUNGS: Clear to auscultation bilaterally. COR: Regular, normal S1 and S2 without murmurs ABD: Normal active bowel sounds. Soft and non-distended. TTP in epigastrium, and diffuse TTP in lower abdomen. No organomegaly, masses, rebound, guarding, ascites. EXT: No upper extremity cyanosis, clubbing. +2 radial pulses. No peripheral edema. PSYCH: mood appropriate, good eye contact, normal interaction Impression/Recommendations: Andree Hummel is a 27 y.o. year old female here for question of celiac disease. She had a thyroidectomy in 2010 for thyroid cancer, and has had difficulty stabilizing thyroid hormone on synthroid. She is here for an upper endoscopy to see whether lack of response to synthroid may be related to celiac disease/malabsorption. She had recent serologies revealing low IgA and normal TTG IgA. She has along history of irregular bowels, reporting daily bowel movements that are either multipleloose stools or one hard stool. Associated with lower abdominal cramping. Symptoms c/w IBS-mixed. She does not have nocturnal bowel movements, hematochezia/melena and is not anemic. FHx positive for Celiac disease in maternal uncle but not in first degree relatives. Will do an EGD with duodenal biopsies to evaluate for celiac disease. I will order this with anesthesia as she reports waking up during past procedures and that she has significant agitation when she comes out of sedation. Will check labs for other Ig deficiencies, CRP. Her bowel fluctuations may be related to thyroid fluctuation vs IBS vs functional/food intolerance vs malabsorption. She reports having had an EGD and colonoscopy around age 17 for similar symptoms (I do not have reports) with polyps removed but otherwise normal results. Will check fecal calprotectin and if elevated, will add colonoscopy to the procedure, otherwise given ongoing similar symptoms,I am not convinced that a colonoscopy at this time will be helpful. She is not able to go down to the lab today and prefers to do lab work and stool studies at her local facility. Labs: IgG, IgM, CRP Stool studies: fecal calprotectin PLAN (printed for patient): 1. Schedule upper endoscopy with anesthesia 2. Submit stool sample to your local lab. Please let me know when/where you send it 3. Labs- can do locally 4. Follow up appointment in 3 months, after testing The patient was given my contact information and will call me with concerns or questions. Elinor Fisher PA-C Section of Gastroenterology [place] [address] documented in this encounter Plan of Treatment Upcoming Encounters Date Type Department Care Team (Late st Contact Info) Description 05/23/2024 Hospital [place] [address] Maite Malloy MD [facility] [address] OBSTETRICS [place] [address] documented as of this encounter Visit Diagnoses Diagnosis Abdominal bloating Flatulence, eructation, and gas pain Diarrhea, unspecified type IgA deficiency Selective IgA immunodeficiency documented in this encounter Care Teams Women'S Basketball Coach Relationship Specialty Start Date End Date Valencia Adhikari APRN [address] [place] [address] PCP - General 04/21/14 07/04/23 documented as of this encounter
--- OUTSIDE RECORDS SUMMARY | 2023-10-29 04:00 | XMS_ITS | Encounter Summary ---
Author Organization [facility] Address [place] [address] Care Team Providers Care Manager Architecture Name Role Phone Valencia Adhikari APRN Primary Care Provider [phone] Encounter Details Date Type Department Care Team (Late st Contact Info) Description 11/21/2017 [place] [id number] Ambika Grande MSW 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 Tobacco Use Types Packs/Day Years [...] as of this encounter Progress Notes * Ambika Grande MSW - 11/21/2017 2:21 PM EDT CCM responded to call from pt's state attorney with question about access to Pain Clinic treatments. CCM reviewed pt chart and noted that pt has not been seen by Pain Clinic and advised caller to have the IW call to make an appointment. documented in this encounter Plan of Treatment Upcoming Encounters Date Type Department Care Team (Late st Contact Info) Description 05/23/2024 Hospital [place] [address] [facility] [address] OBSTET[place]ICS [place] [address] documented as of this encounter Visit Diagnoses Not on filedocumented in this encounter Care Teams Manager Architecture Relationship Specialty Start Date End Date Valencia Adhikari APRN [address] [place] [address] PCP - General 04/21/14 07/04/23 documented as of this encounter
--- OUTSIDE RECORDS SUMMARY | 2023-10-29 04:00 | XMS_ITS | Encounter Summary ---
Author Organization [facility] [place] [address] Care Team Providers Care Barn Boss Name Role Phone Valencia Adhikari APRN Primary Care Provider [phone] Encounter Details Date Type Department Care Team (Late st Contact Info) Description 10/04/2017 9:00 AM EDT Office Visit Psychiatry [place] [address] Argelia Mccray CONCRETE TECHNICIAN [facility] [place] [address] Bipolar affective disorder, remission status unspecified; Depression, unspecified depression type; Anxiety 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 [...] Progress Notes * Argelia Mccray APRN - 10/04/2017 9:00 AM EDT ESTABLISHED ADULT PATIENT OFFICE VISIT NOTE Time Spent: 10 min (patient arrived 20 minutes late to appointment) Attendee(s): Client HISTORY Chief Complaint: Toshaaaron SinghTamara is a 27 y.o. Female presents today with bipolar disorder and psychopharmacology follow-up HPI: () *Of note, the client arrived 20 minutes late to appointment. Only had 10 minutes to meet and review* Andree relays she has noted a significant improvement in her mood to the point where her friends, 5year old son, and family have noted a difference. Andree states that she has more control over her anger and although she continues to have anxiety attacks, she notes they are less intense. She has also been exercising. No safety concerns voiced. PHQ9 Questionnaires Data (Clinic and Pt Entered): last 4 values of depression scores PHQ-9 QUESTIONNAIRE SCORE ONLY (Patient) 08/16/2017 PHQ - 9 Score (Patient) 18 (Moderately Severe Depression) No flowsheet data found. GAD7 Questionnaires Data: last 4 values of anxiety scores CHARISSE-7 Questionnaire Score Only 08/16/2017 CHARISSE-7 Score (Patient) 15 (Severe Anxiety) Current Medications: Current Outpatient Prescriptions Medication Sig Dispense Refill ??? buPROPion (WELLBUTRIN XL) 150 mg Tablet Extended Release 24 hr Take 1 tablet by mouth every morning. 30 tablet 0 ??? busPIRone (BUSPAR) 5 mg Tablet Take 1 tablet by mouth 2 times daily. For anxiety 60 tablet 0 ??? lamoTRIgine (LAMICTAL) 150 mg Tablet Take 1 tablet by mouth daily. 30 tablet 0 ??? lidocaine (LIDODERM) 5 % Adhesive Patch, Medicated Apply 1 patch onto the skin daily. (leave onfor 12 hours and remove for 12 hours) 30 patch 2 ??? diclofenac (VOLTAREN) 1 % Gel Apply 2 g topically 4 times daily. 100 g 1 ??? levothyroxine (SYNTHROID) 200 mcg Tablet take 1 tablet by mouth once daily 0 ??? levonorgestrel (MIRENA) 20 mcg/24 hr (5 years) IUD 1 each by Intrauterine route once. Indications: inserted 03/14/2016 No current facility-administered medications for this visit. Allergies: Allergies Allergen Reactions ??? Demerol [Meperidine] Anaphylaxis ??? Dilaudid [Hydromorphone (Bulk)] Hives Pertinent Medication Side Effects: None / control: IUD Review of Systems: (04/17/09) CONST no recent weight change CV no angina and no palpitations RESP no shortness of breath and no cough GI no nausea and no vomiting NEURO no headache and no numbness PSYCH See above Allergic See reviewed allergies Past Medical History: Diagnosis Date ??? Anemia [...] Neuropathy ??? Other and unspecified ovarian cysts 2008 ??? Parkinsonism ??? Syncope and collapse ??? Varicella ??? Vision abnormalities EXAM [09/22/13 bullets (incl VS)] Constitutional System ? Vital Signs: There were no vitals taken for this visit. Musculoskeletal System: normal gait and balance and ambulates independently Mental Status Evaluation: ?? Appearance: age appropriate and casually dressed, wearing corrective lenses ?? Behavior: cooperative with the interview ?? Speech: normal pitch, normal volume, normal rate and normal rhythm ?? Language: fluent in bermudian ?? Mood: Better ?? Affect: bright and mood-congruent ?? Thought Process: linear and logical ?? Associations: intact ?? Thought Content: denied homicidal ideation and denied suicidal ideation ?? Perception: denied auditory hallucinations denied visual hallucinations ?? Orientation: grossly intact by interview ?? Attention/Concentration: able to sustain focus ?? Cognition: grossly intact by interview ?? Memory: recent and remote memory grossly intact ?? Fund of Knowledge: appropriate for age and level of functioning ?? Insight: good ?? Judgment: good Pertinent psychiatry Labs: CBC w/diff Comprehensive metabolic panel Hepatic panel Electrolytes Lamictal level Psychotherapeutic Interventions and Response: Medication management. Empathic listening. Patient engaged in process and receptive to care. Andree has shown an overall improvement with her symptoms of concern. She continues to experience anxiety and poor sleep. It would be reasonable to increase the dose of Buspar for further anxiety coverage. In regards to sleep, Andree has tried both melatonin and trazodone without success. Given theworking diagnosis of bipolar disorder, I would like to trial PRN of Seroquel as an adjunctive medication to the standing Lamictal to further manage mood lability, but specifically target her inconsistent sleep. Of course, the dose will be further titrated as necessary. Andree is in understanding and agreement with this plan. No dose adjustment will be made for Lamictal and Wellbutrin. MEDICAL DECISION MAKING DIAGNOSIS: Working diagnosis: Bipolar Disorder type II vs bipolar disorder unspecified CURRENT ASSESSMENT: Andree has shown significant improvement in her mood lability and energy level during the day. Although less in intensity, she continues to note some difficulty with anxiety. Andree also notes continued inconsistency with the quality and quantity of her sleep. We will make adjustments with her Buspar dose for further anxiety coverage. The addition of Seroquel will serve as an both an adjunctive to the Lamictal and help to manage symptoms of her current mood disorder, specifically sleep. There are no safety concerns voiced today. PLAN: 1) Increase Buspar to 10mg PO BID 2) Addition of Seroquel 25mg PO QHS PRN - adjunctive to Lamictal 3) Labs (CBC/Comprehensive metabolic panel/Heptaic panel/Electrolytes/Lamictal level) 4) Continue current doses of Lamictal and Wellbutrin SAFETY RISK ASSESSMENT Enduring Factors: history of substance abuse, poor emotional regulation and history of trauma Dynamic Factors: depressive symptoms Protective Factors: family and community support and engaged in medical and/or mental health care Access to Firearms: No Patient Instruction/Education provided: Patient provided verbal instructions regarding medication side effects, safety plan in case of feeling unsafe. Patient understands the plan? Yes We have previously discussed that I am available via -eD, but that I do not always check this daily, and should not be used in case of emergency. Argelia Mccray APRN 10/04/2017 documented in this encounter Plan of Treatment Upcoming Encounters Date Type Department Care Team (Late st Contact Info) Description 05/23/2024 [place] [id number] Maite Malloy MD [facility] [place] [address] documented as of this encounter Procedures Procedure Name Priority Date/Time Associated Diagnosis Comments LAMOTRIGINE LVL Routine 10/04/2017 10:08 AM EDT Bipolar affective disorder, remission status unspecified THYROGLOBULIN ANTIBODY Routine 8 10:08 AM EDT Bipolar affective disorder, remission status unspecified HEMOGRAM Routine 10/04/2017 10:08 AM EDT Bipolar affective disorder, remission status unspecified DIFFERENTIAL, AUTOMATED Routine 10/04/2017 10:08 AM EDT Bipolar affective disorder, remission status unspecified CBC (WITH DIFF) Routine 10/04/2017 10:08 AM EDT Bipolar affective disorder, remission status unspecified T3, FREE Routine 10/04/2017 10:08 AM EDT Bipolar affective disorder, remission status unspecified TSH Routine 10/04/2017 10:08 AM EDT Bipolar affective disorder, remission status unspecified T4, FREE Routine 10/04/2017 10:08 AM EDT Bipolar affective disorder, remission status unspecified T4 TOTAL Routine 10/04/2017 10:08 AM EDT Bipolar affective disorder, remission status unspecified COMPREHENSIVE METABOLIC PANEL (NON-FASTING) Routine 10/04/2017 10:08 AM EDT Bipolar affective disorder, remission status unspecified documented in this encounter Results * Differential, Automated (10/04/2017 10:08 AM EDT) Neutrophils % 71.5 % [facility] Neutr Abs (ANC) 5.34 1.70 - 6.10 x10(3)/[facility] Lymphocytes % 16.6 % [facility] Lymphocytes Abs 1.2 0.9 - 3.2 x10(3)/[facility] Monocytes % 10.2 % [facility] Monocyte Abs 0.8 0.3 - 0.9 x10(3)/[facility] Eosinophils % 0.8 % [facility] Eosinophils Abs 0.1 0.0 - 0.4 x10(3)/[facility] Basophils % 0.5 % [facility] Basophils Abs 0.0 0.0 - 0.1 x10(3)/[facility] Immature Gran % 0.40 % [facility] Comment: Immature granulocytes(IG's)percentage and absolute count will include metamyelocytes, myelocytes, and promyelocytes. Blood smears from CBCs yielding IG's will be scanned manually for concordance. If this scan disagrees with the automated IG or if promyelocytes are noted, a manual differential will be performed. Kimmy Gran Abs 0.03 0.00 - 0.04 x10(3)/[facility] Blood specimen (specimen) 10/04/2017 10:08 AM EDT 10/04/2017 10:14 AM EDT Narrative Resulting Agency Comment Spec In Lab Argelia Mccray APRN HEMATOLOGY [place] [facility] [place] [address] * (ABNORMAL) Hemogram (10/04/2017 10:08 AM EDT) WBC 7.5 4.0 - 9.5 x10(3)/[facility] RBC 4.03 4.00 - 5.21 x10(6)/[facility] Hemoglobin 13.6 11.7 - 15.5 gm/dL [facility] [place] Hematocrit 40.0 35.7 - 45.8 % [facility] [place] MCV 99.3(H) 82.6 - 94.4 fL [facility] [place] MCH 33.7(H) 27.1 - 32.0 pg [facility] MCHC 34.0 31.7 - 35.0 gm/dL [facility] Platelets 198 145 - 357 x10(3)/[facility] RDWSD 47.5(H) 37.0 - 46.0 fL [facility] RDWCV 12.9 11.5 - 14.1 % [facility] MPV 11.5 7.6 - 12.9 fL [facility] nRBC % Auto 0.0 % [facility] nRBC Abs Auto 0.000 0.000 - 0.000 x10(3)/[facility] Blood specimen (specimen) 10/04/2017 10:08 AM EDT 10/04/2017 10:14 AM EDT Narrative Resulting Agency Comment Spec In Lab Argelia Mccray APRN HEMATOLOGY [place] [facility] [place] [address] * (ABNORMAL) Comprehensive metabolic panel (non-fasting) (10/04/2017 10:08 AM EDT) Glucose Lvl 94 65 - 199 mg/dL [facility] Comment:Diabetes: >=200 mg/d L plus symptoms BUN 7(L) 8 - 18 mg/dL [facility] Creatinine 0.74 0.70 - 1.20 mg/dL [facility] Sodium 142 135 - 145 mmol/L [facility] Potassium 4.2 3.5 - 5.0 mmol/L [facility] Comment: Please note: ??Patients with WBC >100,000 may have falsely elevated Potassium levels. ??For accurate Potassium quantification in these patients send serum separator tube (gold top) for subsequent determinations. ??Contact the Clinical Chemistry Laboratory if there are any questions. Chloride 107 98 - 107 mmol/L [facility] CO2 22 22 - 31 mmol/L [facility] Anion Gap 13 5 - 15 mmol/L [facility] Calcium 9.3 8.5 - 10.5 mg/dL [facility] Total Protein 6.6 6.1 - 8.0 gm/dL [facility] Albumin 4.2 3.2 - 5.2 gm/dL [facility] AST 14 0 - 30 unit/L [facility] ALT 11 0 - 30 unit/L [facility] Alk Phos 67 40 - 104 unit/L [facility] Total Bilirubin 0.9 0.2 - 1.3 mg/dL [facility] Estimated GFR 112 >=60 mL/min/1. 73 m?? [facility] Comment: The eGFR was calculated using the CKD-EPI equation. As with all creatinine based estimates of kidney function, eGFR values calculated with the CKD-EPI equation are not accurate in patients with acute kidney failure, extremes of body mass or the acutely ill. http://CompStak/Streamnkdep [email or web address]/[email or web address] eGFR 130 >=60 mL/min/1. 73 m?? [facility] Comment: The eGFR was calculated using the CKD-EPI equation. As with all creatinine based estimates of kidney function, eGFR values calculated with the CKD-EPI equation are not accurate in patients with acute kidney failure, extremes of body mass or the acutely ill. http://CompStak/Streamnkdep http://CompStak/[email or web address] Blood specimen (specimen) 10/04/2017 10:08 AM EDT 10/04/2017 10:14 AM EDT Narrative Resulting Agency Comment Spec In Lab Argelia Mccray APRN CHEMISTRY ORDER AMANDA [facility] [place] [address] * (ABNORMAL) Lamotrigine Lvl (10/04/2017 10:08 AM EDT) Lamotrigine Lvl 1.4(L) 2.5 - 15.0 mcg/mL [facility] Comment: ADDITIONAL INFORMATION This test was developed and its performance characteristics determined by [facility] in a manner consistent with CLIA requirements. This test has not been cleared or approved by the U.S. Food and Drug Administration. Test Performed by: [facility] [address] [place] [address] Blood specimen (specimen) 10/04/2017 10:08 AM EDT 10/04/2017 11:55 AM EDT Narrative Resulting Agency Comment Spec In Lab Argelia Naranjo Shazia ABREUN CHEMISTRY ORDER AMANDA [facility] [place] [address] * TSH (10/04/2017 10:08 AM EDT) TSH 0.90 0.27 - 4.20 mlU/ML [facility] Blood specimen (specimen) 10/04/2017 10:08 AM EDT 10/04/2017 10:14 AM EDT Narrative Resulting Agency Comment Spec In Lab Argelia Naranjo Shazia ABREUN CHEMISTRY ORDER AMANDA [facility] [place] [address] * Thyroglobulin Antibody (10/04/2017 10:08 AM EDT) Thyroglob Ab <20.0 0.0 - 40.0 IU/mL [facility] Blood specimen (specimen) 10/04/2017 10:08 AM EDT 10/04/2017 1:15 PM EDT Narrative Resulting Agency Comment Spec In Lab Argelia Mccray APRN CHEMISTRY ORDER AMANDA Performing Organization Address City/[facility] Co de Phone Number [facility] [place] [address] * (ABNORMAL) T4, free (10/04/2017 10:08 AM EDT) Free T4 1.74(H) 0.93 - 1.70 ng/dL [facility] Blood specimen (specimen) 10/04/2017 10:08 AM EDT 10/04/2017 10:14 AM EDT Narrative Resulting Agency Comment Spec In Lab Argelia Mccray APRN CHEMISTRY ORDER AMANDA Performing Organization Address [facility] Co de Phone Number [facility] [place] [address] * T4 Total (10/04/2017 10:08 AM EDT) Pathologist [facility] T4, total 8.5 5.1 - 10.8 mcg/dL [facility] Comment: Reference Range: [place] Blood: ??6.9-14.4 mcg/dL Females: ??7.2-14.2 mcg/dL Pediatric ranges: ??Interpret with caution-ranges have not been verified Blood specimen (specimen) 10/04/2017 10:08 AM EDT 10/04/2017 10:14 AM EDT Narrative Resulting Agency Comment Spec In Lab Argelia Mccray APRN CHEMISTRY ORDER AMANDA Performing Organization Address City/[facility] Co de Phone Number [facility] [place] [address] * T3, free (10/04/2017 10:08 AM EDT) Pathologist [facility] T3, Free 3.8 2.0 - 4.4 pg/mL [facility] Blood specimen (specimen) 10/04/2017 10:08 AM EDT 10/04/2017 10:14 AM EDT Narrative Resulting Agency Comment Spec In Lab Argelia Levineaga CONCRETE TECHNICIAN CHEMISTRY ORDER AMANDA [facility] [place] [address] documented in this encounter Visit Diagnoses Diagnosis Bipolar affective disorder, remission status unspecified Depression, unspecified depression type Anxiety Anxiety state, unspecified documented in this encounter Care Teams Barn Boss Relationship Specialty Start Date End Date Valencia Adhikari APRN [address] [place] [address] PCP - General 04/21/14 07/04/23 documented as of this encounter
--- OUTSIDE RECORDS SUMMARY | 2023-10-29 04:00 | XMS_ITS | Encounter Summary ---
Author Organization [facility] [place] [address] Care Team Providers Care Transition Teacher Name Role Phone Valencia Adhikari APRN Primary Care Provider [phone] [phone] Encounter Details Date Type Department Care Team (Late st Contact Info) Description 02/21/2018 10:00 AM EST Office Visit Psychiatry [place] [address] Argelia Mccray DEVELOPMENTAL BEHAVIORAL PHYSICIAN [facility] [place] [address] Depression, unspecified depression type; Anxiety 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 [...] Progress Notes * Argelia Mccray APRN - 02/21/2018 10:00 AM EST ESTABLISHED ADULT PATIENT OFFICE VISIT NOTE Time Spent: 25min Attendee(s): Client only HISTORY Chief Complaint: Andree Hummel is a 27 y.o. 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 GAD7 Questionnaires Data: last 4 values of anxiety scores CHARISSE-7 Questionnaire Score Only 08/16/2017 11/08/2017 12/13/2017 02/21/2018 CHARISSE-7 Score (Patient) 15 (Severe Anxiety) 20 (Severe Anxiety) 16 (Severe Anxiety) 18 (Severe Anxiety) Current Medications: Current Outpatient Medications Medication Sig Dispense Refill ??? Desvenlafaxine 50 mg Tablet Sustained Release 24 hr Take 1 tablet by mouth daily. 30 tablet 3 ??? LORazepam (ATIVAN) 0.5 mg Tablet Take 1 tablet by mouth 2 times daily as needed for Anxiety. 60tablet 0 ??? buPROPion (WELLBUTRIN XL) 150 mg Tablet Extended Release 24 hr Take 1 tablet by mouth every morning. 30 tablet 3 ??? busPIRone (BUSPAR) 10 mg Tablet Take 2 tablets by mouth 2 times daily. For anxiety 120 tablet 3 ??? lamoTRIgine (LAMICTAL) 150 mg Tablet Take 1.5 tablets by mouth daily. 45 tablet 3 ??? QUEtiapine (SEROQUEL) 25 mg Tablet Take 1 tablet by mouth nightly as needed (For sleep). 30 tablet 0 ??? celecoxib (CELEBREX) 200 [...] (Bulk)] Hives Pertinent Medication Side Effects: None noted today Review of Systems: (04/17/09) CONST no recent weight change CV no angina and no palpitations RESP no shortness of breath GI no nausea and no vomiting NEURO no headache PSYCH See above Allergic See reviewed allergies PFSH: () Past Medical History: Diagnosis Date ??? Anemia [...] independently Mental Status Evaluation: ?? Appearance: age appropriate, groomed, casually dressed, wears corrective glasses, tired appearing ?? Behavior: cooperative with the interview ?? Speech: normal pitch, normal volume, normal rate and normal rhythm ?? Language: fluent in martiniquais ?? Mood: Anxious ?? Affect: mood-congruent and tearful ?? Thought Process: linear and logical ?? [...] good ?? Judgment: good Pertinent psychiatry Labs: None collected today Psychotherapeutic Interventions and Response: Medication management. Empathic listening. Patient engaged in process and receptive to care. Given Andree's level of anxiety and that she has previously tolerated being on an antidepressant without the development of manic symptoms, that tirals such as hydroxyzine and Buspar were ineffective, it seems reasonable to trial an antidepressant. We discussed starting Pristiq (which the prior authorization was denied due to not trying Venlafaxine). Relayed this to the patient and started Venlafaxine instead to treat anxiety. We will monitor for the development of any manic symptoms. Andree has been struggling with frequent panic attacks. She has trialed Hydroxyzine and Buspar withno relief. We discussed the use of Ativan for the short term while the Venlafaxine is taking effect. Relayed to the client that it would only be used as a bridging medication and would be discontinued once her anxiety has stabilized. Reviewed that she should not be mixing this medication with alcohol or other substances. Andree voiced her understanding and stated she did not wish to be on any potentially addictive medications for a long period. Provided a [facility] Benzodiazapine contract for the patient and this tech writer to sign. To reduce polypharmacy we will likely discontinue the Buspar as the patient has noted no improvement. We will discuss Wellbutrin in the future and may discontinue this medication as well as it may not be ideal for patient's who are activated/anxious. She denies any safety concerns today. MEDICAL DECISION MAKING WORKING DIAGNOSIS Anxiety disorder unspecified Depressive disorder/Mood disorder DDx: Bipolar disorder CURRENT ASSESSMENT: 27 year old with hypothyroidism, intractable chronic migraine, and mood disorder who continues to be seen at [facility] for medication management. Andree continues to struggle with anxiety and mood lability. Given her history of being on an antidepressant without the development of manic symptoms (and being on an antidepressant currently) as well as that she is on a mood stabilizer and an antipsychotic, it seems reasonable to start a primary antidepressant. We will be mindful and monitor the development of any manic symptoms. To further manage her anxiety in the short term untilthe primary antidepressant takes effect, will prescribe Ativan. Andree is in understanding that it is for the short term only and will be discontinued once her anxiety has stabilized. Benzodiazapine contract signed and scanned into the patient's medical record. PLAN: 1) Start Venlafaxine 37.5mg PO QD 2) Start Lorazepam 0.5mg PO BID PRN for anxiety- to serve as a bridge only until the Venlafaxine takes effect 3) Continue Lamictal and Seroquel 4) Will continue Wellbutrin and Buspar for now, but will consider discontinuing them once Venlafaxine takes effect to minimize polypharmacy SAFETY RISK ASSESSMENT Enduring Factors: history of substance abuse Dynamic Factors: depressive symptoms, anxiety Protective Factors: family and community support and engaged in medical and/or mental health care, son Access to Firearms: No Patient Instruction/Education provided: [...] reviewed crisis numbers to call in case ofemergency. We have previously discussed limits to confidentiality, which include breaking confidentiality in the case of concern for imminent danger to self, someone else (including child and elder abuse) or ifrecords are subpoenaed by a judge clerk. We also discussed that notes can be read by other clinicians andstaff involved in the patient's care. Argelia Mccray APRN 02/21/2018 documented in this encounter Plan of Treatment Upcoming Encounters Date Type Department Care Team (Late st Contact Info) Description 05/23/2024 [place] [address] Maite Malloy MD [facility] DR OBSTETRICS [place] [address] documented as of this encounter Visit Diagnoses Diagnosis Depression, unspecified depression type Anxiety Anxiety state, unspecified documented in this encounter Care Teams Transition Teacher Relationship Specialty Start Date End Date Valencia Adhikari APRN [address] [place] [id number] PCP - General 04/21/14 07/04/23 documented as of this encounter
--- OUTSIDE RECORDS SUMMARY | 2023-10-29 04:00 | XMS_ITS | Encounter Summary ---
Author Organization [facility] [place] [address] Care Team Providers Care Scale Agent Name Role Phone Valencia Adhikari APRN Primary Care Provider [phone] Encounter Details Date Type Department Care Team (Late st Contact Info) Description 08/09/2017 Telephone Psychiatry and [place] [phone] Geovanna Méndez 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 Tobacco Use Types Packs/Day Years [...] Miscellaneous Notes * Telephone Encounter - Geovanna Méndez - 08/09/2017 10:18 AM EDT Pt called and stated she is out of medication. She stated that she is now suppose to titrate to 50 mg of lamictal once a day for 2 weeks. She has call the pharmacy but there is not a script for her there. Her phone number is [phone] Sandie Austin documented in this encounter Plan of Treatment Upcoming Encounters Date Type Department Care Team (Late st Contact Info) Description 05/23/2024 Hospital Encounter Birthing [facility] [place] [phone] Maite Malloy MD [facility] [address] OBSTETRICS [place] [address] documented as of this encounter Visit Diagnoses Not on filedocumented in this encounter Care Teams Scale Agent Relationship Specialty Start Date End Date Valencia Adhikari APRN [address] [place] [address] PCP - General 04/21/14 07/04/23 documented as of this encounter
--- OUTSIDE RECORDS SUMMARY | 2023-10-29 04:00 | XMS_ITS | Encounter Summary ---
[place] [address] Care Team Providers Care Sailing Instructor Name Role Phone Valencia Adhikari APRN Primary Care Provider [phone] [phone] Encounter Details Date Type Department Care Team (Late st Contact Info) Description 02/05/2018 Telephone [place] [address] Negar Wilkes 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 Tobacco Use Types Packs/Day Years [...] encounter Miscellaneous Notes * Telephone Encounter - Negar Wilkes - 02/05/2018 1:42 PM EDT Called patient to offer egd appointment on Feb 07, but patient cannot come in. 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 documented in this encounter Plan of Treatment Upcoming Encounters Date Type Department Care Team (Late st Contact Info) Description 05/23/2024 [place] [address] Maite Malloy MD [facility] OBSTETRICS [place] [address] documented as of this encounter Visit Diagnoses Not on filedocumented in this encounter Care Teams Sailing Instructor Relationship Specialty Start Date End Date Valencia Adhikari APRN [address] [place] [address] PCP - General 04/21/14 07/04/23 documented as of this encounter
--- OUTSIDE RECORDS SUMMARY | 2023-10-29 04:00 | XMS_ITS | Encounter Summary ---
Author Organization [facility] [place] [address] Care Team Providers Care Lining Maker Name Role Phone Valencia Adhikari APRN Primary Care Provider [phone] [phone] Encounter Details Date Type Department Care Team (Late st Contact Info) Description 11/14/2017 Telephone Psychiatry [place] [phone] Argelia Mccray APRN [facility] [place] [address] [place] [address] 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 Tobacco Use Types Packs/Day Years [...] Telephone Encounter - Argelia Mccray APRN - 11/14/2017 2:03 PM EDT Request for provider to call patient back RE: Therapy dog. Called Andree, who states she did not want to discuss a therapy dog via telephone, but really wanted a note put in as a reminder to ask thiswriter about therapy dogs at out next visit. Argelia Mccray APRN documented in this encounter Plan of Treatment Upcoming Encounters Date Type Department Care Team (Late st Contact Info) Description 05/23/2024 Hospital [facility] [place] [address] Maite Malloy MD [facility] [address] [place]ST[place] [address] documented as of this encounter Visit Diagnoses Not on filedocumented in this encounter Care Teams Lining Maker Relationship Specialty Start Date End Date Valencia Adhikari APRN [address] [place] [address] PCP - General 04/21/14 07/04/23 documented as of this encounter
--- OUTSIDE RECORDS SUMMARY | 2023-10-29 04:00 | XMS_ITS | Encounter Summary ---
Author Organization [facility] Address [facility] [place] [address] Care Team Providers Care Test Developer Name Role Phone Valencia Adhikari APRN Primary Care Provider [phone] Reason for Referral * Physical Therapy (Routine) - Specialty Diagnoses / Procedures Referred By Lamont riggins Referred To Contact Physical Therapy Diagnoses Chronic left shoulder pain Scapular dyskinesis Alicia Oviedo APRN [facility] [place]OP[place] [address] Referral ID Status Reason Start Date Expiration Date V isits Requested Visits Authorized [id number] Evaluate and Treat 09/13/2017 03/12/2018 12 12 Reason for Visit * Reason Comments Left Shoulder Pain WC DOI: 09/06/16 Encounter Details Date Type Department Care Team (Late st Contact Info) Description 09/13/2017 1:55 PM EDT [place] [address] Laura Schneider MD [facility] OR[place]OPA[place] [address] Scapular dyskinesis (Primary Dx); Chronic left shoulder pain 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 Tobacco [...] Sign Reading Time Taken Comments Blood Pressure 122/69 09/13/2017 2:28 PM EDT Pulse 101 09/13/2017 2:28 PM EDT Temperature - - Respiratory Rate - - Oxygen Saturation - - Inhaled Oxygen Concentration - - Weight 95.3 kg (210 lb) 09/13/2017 2:28 PM EDT v erbal Height 172.7 cm (5' 8) 09/13/2017 2:28 PM EDT v erbal Body Mass Index 31.93 09/13/2017 2:28 PM EDT documented in this encounter Progress Notes * Alicia Oviedo, POWER SHEAR OPERATOR - 09/13/2017 1:55 PM EDT This patient was seen in consultation today at the request of Lizandro Santos MD Reason for Consultation: left shoulder pain. Work Related: Yes DOI: 09/06/2016 History of Present Condition: Andree Hummel is a pleasant 27 y.o. year-old female who visits the Orthopaedic clinic alone today with a history of left shoulder pain. The pain has been present for ~ one year and is exacerbated by all ADL's. She has been taking topical Voltaren gel andlidocaine patches for the pain and has undergone PT and steroid injections to address this pain. The pain is primarily nirmala-scapula region. She has been to multiple providers at [facility] for her pain including Dr. Santos, Meliton Larkin and Dr. Altamirano in the pain clinic. No current neck pain or radiculopathy. No numbness or tingling in the fingers. No current night sweats, fevers or chills. No other pertinent medical history to report. Past Medical History: Active Ambulatory Problems Diagnosis Date Noted ??? Depression 02/23/2011 ??? Hypothyroidism, postsurgical s/p thyroid cancer 05/10/2011 ? ? 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 Left knee pain 04/21/2014 ??? Intractable chronic migraine without aura 12/21/2015 ??? IUD (intrauterine device) in place 03/14/2016 ??? Chronic left shoulder pain 02/06/2017 ??? Biceps tendinitis, left 07/05/2017 Resolved Ambulatory Problems Diagnosis Date Noted ??? Migraine 02/23/2011 ??? Thyroid nodule 02/23/2011 ??? , supervision of, high-risk 05/22/2012 ??? Obesity (BMI 30.0-34.9) 06/12/2012 ??? History of loss in prior , currently 06/12/2012 ??? Threatened labor, antepartum 09/03/2012 Past Medical History: Diagnosis Date ??? Anemia ??? Anxiety ??? Asthma ??? Back pain ??? Cancer 03/2011 ??? Chlamydia 2010 ??? Depression 02/23/2011 ??? Hypothyroidism ??? Irritable bowel syndrome 2008 ??? Knee dislocation ??? Memory disorder ??? Migraine 02/23/2011 ??? Neuropathy ??? Other and unspecified ovarian cysts 2008 ??? Parkinsonism ??? Syncope and collapse ??? Varicella ??? Vision abnormalities Past Surgical History Past Surgical History: Procedure Laterality Date ??? COLONOSCOPY found polyps ??? PRG SOMATOSENSORY TEST, ANY/ALL PER. NERVES, TRUNK OR HEAD 03/22/2011 FACIAL NERVE MONITORING, SETUP performed by JUAN ESPARZA at [facility] MAIN OR ??? PRO THYROIDECTOMY, MALIG, LTD NECK SURG 03/22/2011 THYROIDECTOMY, FOR MALIGNANCY, LIMITED NECK DISSECTION performed by JUAN ESPARZA at [facility] MAIN OR ??? TONSILLECTOMY 2010 ??? UPPER GASTROINTESTINAL ENDOSCOPY for IBS, celiac excluded ??? WISDOM TOOTH EXTRACTION Employment status - she is currently NOT employed . 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 . History Smoking Status ??? Former Smoker ??? Packs/day: 0.50 ??? Years: 4.00 ??? Types: Cigarettes ??? Quit date: 10/01/2016 Smokeless Tobacco ??? Never Used History Alcohol Use ??? Yes Comment: Minimal Family History - her family history is pertinent for Family History Problem Relation Age of Onset [...] ??? Arthritis Paternal Aunt ??? Asthma Brother . Review of Systems: A thirteen-system review was negative Denies fever, chills, nausea, vomiting, vision change, shortness of breath, chest pain, vision changes, headaches, bowel or bladder problem, ear, nose, sinus problem, neuro or psychiatric, or endocrine disorder not addressed above. There is no history of bleeding disorders. No DVT or PE history. No sleep apnea or CPAP use. There are no reported problems with a nesthesia. . Physical Examination: Vitals: BP Readings from Last 1 Encounters: 09/13/17 122/69 Pulse Readings from Last 1 Encounters: 09/13/17 (!) 101 Height: 172.7 cm (5' 8) (verbal) Weight: 95.3 kg (210 lb) (verbal) Body mass index is 31.93 kg/(m^2). Constitutional- she is alert and oriented to person, place, time, and situation. she is in no apparent distress. Ears, nose, mouth, throat - her head is Normocephalic, without obvious abnormality, atraumatic. Integumentary - in general her skin shows normal coloration and turgor, no rashes, no suspicious skin lesions noted. . Psychiatric - her affect was Appropriate. Musculoskeletal examination: Motor exam shows 5/5 strength in lateral deltoid muscles of the upper extremity. c-spine negative Spurling's . + asymmetric and rounded posture. +++ significant nirmala-scapula pain along the superior border of the scapula spine. + dyskinetic motion ?? Shoulder motion Active Passive Strength ?? Abduction 180 180 5/5 ?? Flexion 180 180 5/5 ?? Internal rotation L4 L5 same 5/5 ?? External rotation 70 same 5/5 ?? Special Tests ?? Rotator cuff tests: ?? Camargo' test - Negative ?? Neer's test - Negative ?? Empty can test - Negative ?? Scottsdale's test - N/A ?? Labrum tests ?? O'rodrick's test - Negative ?? Biceps tests ?? Speed's test - Negative ?? Yergason's test - Negative ?? AC joint tests ?? AC joint tenderness - Negative ?? Cross-arm test - Negative Hand is sensate, well perfused, distal pulses are 2+ and equal. Imaging Studies: Plain radiographs - left shoulder x-ray reviewed image by image in the office today reveals no obvious abnormalities MRI - LEFT shoulder MRI reviewed image by image in the office today no obvious abnormalities CT - none Lab Results Component Value Date WBC 8.1 08/30/2017 HGB 13.6 08/30/2017 HCT 40.5 08/30/2017 PLATELET 185 08/30/2017 CREATININE 0.68 (L) 08/30/2017 BUN 7 (L) 08/30/2017 NA 138 08/30/2017 K 4.5 08/30/2017 Estimated Creatinine Clearance: 151.4 mL/min (based on Cr of 0.68). Impression & Plan: 27 y.o. year-old female with based upon history, physical exam, and imaging studies appears to haveLEFT shoulder scapula dyskinesia. Dr Schneider looked in on the patient and agrees with above. Treatmentoptions and risks/benefits discussed from least to most invasive. Patient understands options. At this time, Non-op treatment is recommended. A comprehensive PT program is recommended for above. Order in EDH and copied to Patient for which she will take closer to home. We can f/u in 8-12 weeks. No new x-rays. Advised to remain out of work at this time, [facility] RTW forms completed. Voc rehab recommended. Pt agrees, questions solicited/answered, will return as scheduled and as needed for concerns or questions. Pt understands they may also call us prn for above. documented in this encounter Plan of Treatment Upcoming Encounters Date Type Department Care Team (Late st Contact Info) Description 05/23/2024 [place] [address] Maite Malloy MD [facility] DR OBSTETRICS [place] [address] Scheduled Referrals Name Type Priority Associated Diagnoses Orde r Schedule Referral to Physical Therapy Outpatient Referral Routine Chronic left shoulder pain Scapular dyskinesis Ordered: 09/13/2017 documented as of this encounter Visit Diagnoses Diagnosis Scapular dyskinesis- Primary Lack of coordination Chronic left shoulder pain Pain in joint, shoulder region documented in this encounter Care Teams Test Developer Relationship Specialty Start Date End Date Valencia Adhikari APRN [address] [place] [address] PCP - General 04/21/14 07/04/23 documented as of this encounter
--- OUTSIDE RECORDS SUMMARY | 2023-10-29 04:00 | XMS_ITS | Encounter Summary ---
Author Organization [facility] [place] [address] Care Team Providers Care Electronic Development Technician Name Role Phone Onofre Valenciaadan Barton APRN Primary Care Provider [phone] [phone] Encounter Details Date Type Department Care Team (Late st Contact Info) Description 08/09/2017 Telephone Psychiatry [place] [address] Argelia Mccray APRN [facility] [place] [address] 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 Tobacco Use Types Packs/Day Years [...] Contact Info) Description 05/23/2024 Hospital Encounter [place] [address] Maite Malloy MD [facility] OBSTETRICS [place] [address] documented as of this encounter Visit Diagnoses Not on filedocumented in this encounter Care Teams Electronic Development Technician Relationship Specialty Start Date End Date Valencia Adhikari APRN [address] [place] [address] PCP - General 04/21/14 07/04/23 documented as of this encounter
--- OUTSIDE RECORDS SUMMARY | 2023-10-29 04:00 | XMS_ITS | Encounter Summary ---
Author Organization [facility] [place] [address] Care Team Providers Care Subassembly Supervisor Name Role Phone OnofreVlaencia pitts Oralia SLADE Primary Care Provider [phone] [phone] Encounter Details Date Type Department Care Team (Late st Contact Info) Description 08/09/2017 Orders Only Psychiatry [place] [phone] Argelia Mccray APRN [facility] [place] [address] Depression, unspecified depression type 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 Tobacco [...] Contact Info) Description 05/23/2024 [place] [address] Maite Malloy MD [facility] [place] [address] documented as of this encounter Visit Diagnoses Diagnosis Depression, unspecified depression type documented in this encounter Care Teams Subassembly Supervisor Relationship Specialty Start Date End Date Valencia Adhikari APRN [address] [place] [address] PCP - General 04/21/14 07/04/23 documented as of this encounter
--- OUTSIDE RECORDS SUMMARY | 2023-10-29 04:00 | XMS_ITS | Encounter Summary ---
Author Organization [facility] Address [facility] [place] [address] Care Team Providers Care [employer] Reading Teacher Name Role Phone Valencia Adhikari APRN Primary Care Provider [phone] [phone] Reason for Visit * Reason Comments Left Shoulder Pain Encounter Details Date Type Department Care Team (Late st Contact Info) Description 09/12/2017 11:10 AM EDT Office [place] [address] Kedar Rowe MD [facility] [place] [address] Chronic left shoulder pain (Primary Dx) 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 Tobacco Use Types Packs/Day Years [...] Sign Reading Time Taken Comments Blood Pressure 112/75 09/12/2017 11:37 AM EDT Pulse 82 09/12/2017 11:37 AM EDT Temperature - - Respiratory Rate - - Oxygen Saturation - - Inhaled Oxygen Concentration - - Weight 95.3 kg (210 lb) 09/12/2017 11:37 AM EDT Height 172.7 cm (5' 8) 09/12/2017 11:37 AM EDT Body Mass Index 31.93 09/12/2017 11:37 AM EDT documented in this encounter Progress Notes * Kedar Rowe MD - 09/12/2017 11:10 AM EDT The patient is a 27-year-old female who returns in follow-up for her extensive left shoulder issuessince suffering an injury at work in 2017. She has undergone extensive physical therapy. She has now had 2 intra-articular steroid injections as well as to long head biceps tendon sheath injections. The first of these injections was done in fall or March 2017. The last injection was July 04, 2017 done in the pain clinic. She got really minimal relief with that last injection. She has stopped physical therapy as she has been discharged due to lack of improvement. She has been doing her exercises at home. She has not had any subacromial injections. She is extremely frustrated at this point.She has not been back to work yet. She mostly complains of tightness in her trapezius muscle area. Pain is mostly posterior and superior in the shoulder and lateral though she does have some anteriorpain on occasion but that is extremely minor compared to the rest of it. Objective: Awake alert no acute distress Left upper extremity: Near full shoulder range of motion. Forward flexion 150??, external rotation 50??, internal rotation upper lumbar spine. Sensation intact light touch axillary, median, radial, ulnar. EPL, FPL, interossei intact. Positive Genesee's test. With Speed and Yergason she has pain mostly posterior and superior in the shoulder. She has tenderness over the subacromial bursa. No significant swelling. Jackson: MRI once again reviewed showing no obvious abnormality. Procedure: I had a thorough discussion with the patient regarding the risks and benefits of subacromial bursa injection. I discussed the risks including but not limited to: Bleeding, infection, damage to nervesand vessels, risk of raising blood sugar, permanent discoloration of the skin. The patient expressed understanding of these risks and wished to proceed. I marked out my injection site using a pen. The left shoulder was prepped using DuraPrep. A 22-gauge needle was inserted from a lateral approach into the subacromial bursa. The bursa was entered smoothly and without resistance. Medications were injected without resistance. The patient tolerated the procedure well and a Band-Aid was applied after applying pressure to stop bleeding. A combination of the following medications was injected: Kenalomg (1mL) 1% Lidocaine: 2 mL 0.25% Bupivacaine: 2mL Assessment/plan: 27-year-old female with left shoulder injury while at work now almost a year of issues with this. Negative MRI. Injections have stopped working. I performed a subacromial injection today to see if this will help relieve some of her symptoms. I discussed that I do not believe any surgical procedure including tenodesis would give her significant relief given that most of her pain is in her trapezius area and superiorly. I discussed the possibility of second opinion and she would like to see someone else for a second opinion to evaluate whether her shoulder would benefit from a surgical intervention. If the subacromial injection works then we could potentially discuss subacromial decompression surgically for repeat injection. She will continue with her shoulder exercises. If the subacromial injection does not work she will get a second opinion from 1 of my colleagues. documented in this encounter Miscellaneous Notes * Addendum Note - Kedar Rowe MD - 09/12/2017 12:46 PM EDTAddended by: KEDAR ROWE on: 09/12/2017 12:46 PM Modules accepted: Orders, SmartSet documented in this encounter Plan of Treatment Upcoming Encounters Date Type Department Care Team (Late st Contact Info) Description 05/23/2024 [place] [address] Maite Malloy MD [facility] [place] [address] documented as of this encounter Visit Diagnoses Diagnosis Chronic left shoulder pain- Primary Pain in joint, shoulder region documented in this encounter Administered Medications Inactive Administered Medications - up to 3 most recent administrations Medication Order MAR Action Action Date Dose Rate Site lidocaine (XYLOCAINE) 10 mg/mL (1 %) injection 20 mg 20 mg, Intra-articular, ONCE, 1 dose, On Sun09/12/17 at 1315, Routine Given 09/12/2017 12:46 PM EDT 20 mg triamcinolone acetonide (KENALOG-40) injection 40 mg 40 mg, Intra-articular, ONCE, 1 dose, On Sun09/12/17 at 1315, Routine Given 09/12/2017 12:46 PM EDT 40 mg documented in this encounter Care Teams [employer] Reading Teacher Relationship Specialty Start Date End Date Valencia Adhikari APRN [address] [place] [address] PCP - General 04/21/14 07/04/23 documented as of this encounter
--- OUTSIDE RECORDS SUMMARY | 2023-10-29 04:00 | XMS_ITS | Encounter Summary ---
Author Organization [facility] Address [facility] [place] [address] Care Team Providers Care Computer Systems Technology Instructor Name Role Phone Valencia Adhikari APRN Primary Care Provider [phone] Reason for Visit * Reason Comments Left Shoulder Pain workers comp DOI Encounter Details Date Type Department Care Team (Late st Contact Info) Description 04/03/2017 9:30 AM EST Office [place] [address] Kedar Santos MD [facility] [place] [address] Chronic left shoulder pain 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 Tobacco [...] Sign Reading Time Taken Comments Blood Pressure 113/81 04/03/2017 8:58 AM EST Pulse - - Temperature - - Respiratory Rate - - Oxygen Saturation - - Inhaled Oxygen Concentration - - Weight 89.4 kg (197 lb) 04/03/2017 8:58 AM EST p t reported Height 172.7 cm (5' 8) 04/03/2017 8:58 AM EST p t reported Body Mass Index 29.95 04/03/2017 8:58 AM EST documented in this encounter Progress Notes * Kedar Santos MD - 04/03/2017 9:30 AM EST Follow-up visit note. The patient is a 26-year-old female with chronic left shoulder pain that has resulted from 2 incidents at work. Her pain has gotten 30-40% better since she had injection of the glenohumeral joint andthe biceps tendon sheath on the left side several weeks ago. She still has significant pain in the posterior aspect of her shoulder in the musculature. She does not have radicular symptoms. The pain is posterior in the trapezius area and radiates up towards her neck and to the posterior aspect of her left shoulder but not past the elbow. Not to the midline of the neck. No pain with range of motion of the neck. She does state that she sleeps on a futon and so she does have some intermittent neckpain. No numbness or tingling. Her range of motion and strength have improved since the injection but are still not 100%. Next Objective: Awake alert no acute distress Left upper extremity: Full range of motion. 5 out of 5 strength with empty can ER and IR. Speeds and Yergason's are negative today. Sensation intact light touch throughout. Imaging: None new. Next Assessment plan: 26-year-old female with chronic left shoulder pain that appears muscular in naturecurrently. Her anterior shoulder pain did get significantly better after the injections however shestill has a component of disability with her posterior pain and feels like she is unable to do any type of rigorous work with lifting. I think this is reasonable. I will give her a letter today stating that she is unable to do rigorous work. I am hopeful that it is possible that her posterior shoulder pain improves now with physical therapy given that she does not have significant glenohumeral joint pain or biceps tendon pain however I think it is unlikely that she will be able to get back to her Prior level of function. she is in agreement with this plan. She will continue physical therapy and her home exercise program and follow-up on an as-needed basis in the future. I discussed that if her Anterior and deep shoulder pain return and become the predominant symptom then surgery may be an option for her with biceps tenodesis as well as treatment of the shoulder but I think that is unlikely documented in this encounter Plan of Treatment Upcoming Encounters Date Type Department Care Team (Late st Contact Info) Description 05/23/2024 [place] [address] Maite Malloy MD [facility] DR OBSTETRICS [place] [address] documented as of this encounter Visit Diagnoses Diagnosis Chronic left shoulder pain Pain in joint, shoulder region documented in this encounter Care Teams Computer Systems Technology Instructor Relationship Specialty Start Date End Date Valencia Adhikari APRN [address] [place] [address] PCP - General 04/21/14 07/04/23 documented as of this encounter
--- OUTSIDE RECORDS SUMMARY | 2023-10-29 04:00 | XMS_ITS | Encounter Summary ---
Author Organization [facility] Address [facility] [place] [address] Care Team Providers Care Transfer Worker Name Role Phone Valencia Adhikari APRN Primary Care Provider [phone] Reason for Visit * Reason Onset Date Comments Questions 05/17/2017 Encounter Details Date Type Department Care Team (Late Contact Info) Description 05/17/2017 Telephone [place] [phone] Kedar Santos MD [facility] [place] [address] Questions 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 Tobacco Use Types Packs/Day Years [...] Miscellaneous Notes * Telephone Encounter - Lisa Sarah - 05/17/2017 9:33 AM EST Received a call from the patient who advised the images from [facility] ( MRI and XR ) will be sent to [facility] today documented in this encounter Plan of Treatment Upcoming Encounters Date Type Department Care Team (Late st Contact Info) Description 05/23/2024 Hospital Encounter [place] [phone] Maite Malloy MD [facility] OBSTETRICS [place] [address] documented as of this encounter Visit Diagnoses Not on filedocumented in this encounter Care Teams Transfer Worker Relationship Specialty Start Date End Date Valencia Adhikari APRN [address] [place] [address] PCP - General 04/21/14 07/04/23 documented as of this encounter
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
--- OUTSIDE RECORDS SUMMARY | 2023-10-29 04:00 | XMS_ITS | Encounter Summary ---
Author Organization [facility] [place] [address] Care Team Providers Care Shank Piece Tacker Name Role Phone OnofreMarilyn pittshryn Oralia SLADE Primary Care Provider [phone] Reason for Visit * Reason Onset Date Comments Medication Refill 01/31/2018 Encounter Details Date Type Department Care Team (Late st Contact Info) Description 01/31/2018 Refill Psychiatry [place] [phone] Osmar South RN Depression, unspecified depression type; [...] Info) Description 05/23/2024 Hospital [place] [phone] Maite Malloy MD [facility] [place] [address] documented as of this encounter Visit Diagnoses Diagnosis Depression, unspecified depression type Anxiety Anxiety state, unspecified documented in this encounter Care Teams Shank Piece Tacker Relationship Specialty Start Date End Date Valencia Adhikari APRN [address] [place] [address] PCP - General 04/21/14 07/04/23 documented as of this encounter
--- OUTSIDE RECORDS SUMMARY | 2023-10-29 04:00 | XMS_ITS | Encounter Summary ---
[place] [address] Care Team Providers Care Bioinformatics Technician Name Role Phone Valencia Adhikari APRN Primary Care Provider [phone] [phone] Reason for Referral * Diagnostic Test (Routine) - Closed Specialty Diagnoses / Procedures Referred By Lamont riggins Referred To Contact Radiology Diagnoses Paresthesias/numbness Procedures MRI Brain wwo Contrast (Generic) Joceline Bustillo APRN [address] [place] [address] [place] [address] Referral ID Status Reason Start Date Expiration Date V isits Requested Visits Authorized [id number] Closed Specialty Service Requested 01/12/2017 01/12/2018 1 1 Reason for Visit * Diagnostic Test (Routine) - Closed Specialty Diagnoses / Procedures Referred By Contac gilson Referred To Contact Radiology Diagnoses Paresthesias/numbness Procedures MRI Brain wwo Contrast (Generic) Joceline Bustillo APRN [address] [place] [address] [place] [address] Referral ID Status Reason Start Date Expiration Date V isits Requested Visits Authorized [id number] Closed Specialty Service Requested 01/12/2017 01/12/2018 1 1 Encounter Details Date Type Department Care Team (Latest Contact Info) Description 02/09/2017 8:18 AM EDT - 02/09/2017 11:59 PM EDT Hospital Encounter [place] [address] Joceline Bustillo APRN [address] [place] [address] Paresthesias/numbne ss Discharge Disposition: Home 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 Tobacco Use [...] Sig Dispensed Refills Start Date End Date baclofen (LIORESAL) 10 mg Tablet Take 10 mg by mouth 3 times daily. 06/05/2017 lidocaine (XYLOCAINE) 2 % jelly Apply topically as needed. 06/05/2017 citalopram (CELEXA) 40 mg Tablet Take 40 mg by mouth daily. 07/26/2017 levothyroxine (SYNTHROID) 150 mcg Tablet Take 200 mcg by mouth daily. 06/05/2017 hydrOXYzine (ATARAX) 50 mg Tablet Take 50 mg by mouth 3 times daily as needed for Itching. 08/30/2017 levonorgestrel (MIRENA) 20 mcg/24 hr (5 years) IUDIndications:inserte d 03/14/2016 1 each by Intrauterine route once. Indications: inserted 03/14/2016 03/14/2016 08/04/2020 meclizine (ANTIVERT) 12.5 mg Tablet Take 12.5 mg by mouth 3 times daily as needed. 8 documented as of this encounter Plan of Treatment Upcoming Encounters Date Type Department Care Team (Late st Contact Info) Description 05/23/2024 [place] [address] Maite Malloy MD [facility] [place] [address] documented as of this encounter Procedures Procedure Name Priority Date/Time Associated Diagnosis Comments MRI BRAIN WWO CONTRAST (GENERIC) Routine 02/09/2017 9:46 AM EDT Paresthesias/numbne ss documented in this encounter Results * MRI Brain wwo Contrast (Generic) (02/09/2017 9:46 AM EDT) Anatomical Region Laterality Modality Head Magnetic Resonan ce Impressions 02/09/2017 11:17 AM EDT Two nonspecific T2 hyperintensities in the right frontal lobe without associated mass or abnormal enhancement. No findings diagnostic for demyelinating disease. No mass or abnormal enhancement. Narrative 02/09/2017 11:17 AM EDT EXAMINATION: MRI BRAIN WWO CONTRAST (GENERIC) CLINICAL HISTORY: facial numbness with paresthesias, r/o MS TECHNIQUE: Brain MRI without with gadolinium. 9 cc gadavist COMPARISON: Head CT dated 04/25/2015 FINDINGS: There are 2 nonenhancing foci of T2 hyperintensity right frontal lobe white matter, axial images 12 and 13 of series 5. No associated mass effect. There is otherwise normal signal characteristics the brain parenchyma. No infratentorial lesions. There are no periventricular abnormalities seen. There is no evidence of mass, mass effect, midline shift or extra-axial fluid collection. Midline structures and central flow voids are unremarkable. There is no mass or abnormal enhancement post gadolinium. Developmental venous anomaly is identified in the left parafalcine posterior frontal lobe. An additional developmental venous anomaly seen in the right perisylvian frontal lobe. These are incidental findings of doubtful clinical significance... Procedure Note Mark Mahan MD - 02/09/2017 EXAMINATION: MRI BRAIN WWO CONTRAST (GENERIC) CLINICAL HISTORY: facial numbness with paresthesias, r/o MS TECHNIQUE: Brain MRI without with gadolinium. 9 cc gadavist COMPARISON: Head CT dated 04/25/2015 FINDINGS: There are 2 nonenhancing foci of T2 hyperintensity right frontal lobewhite matter, axial images 12 and 13 of series 5. No associated mass effect.There is otherwise normal signal characteristics the brain parenchyma. Noinfratentorial lesions. There are no periventricular abnormalities seen. There is no evidence of mass, mass effect, midline shift or extra-axialfluid collection. Midline structures and central flow voids are unremarkable. There is no mass or abnormal enhancement post gadolinium. Developmentalvenous anomaly is identified in the left parafalcine posterior frontal lobe. An additional developmental venous anomaly seen in the right perisylvianfrontal lobe. These are incidental findings of doubtful clinical significance... IMPRESSION Two nonspecific T2 hyperintensities in the right frontal lobe withoutassociated mass or abnormal enhancement. No findings diagnostic for demyelinatingdisease. No mass or abnormal enhancement. 11:17 AM Joceline Bustillo APRN IMG MRI ORDERABL ES documented in this encounter Visit Diagnoses Diagnosis Paresthesias/numbness Disturbance of skin sensation documented in this encounter Administered Medications Inactive Administered Medications - up to 3 most recent administrations Medication Order MAR Action Action Date Dose Rate Site gadobutrol (GADAVIST) 1 mMol/mL injection 9 mL 9 mL, Intravenous, ONCE PRN, 1 dose, Starting on Sun02/09/17 at 0856, Until Sun02/09/17 at 0925, Per Protocol, Routine Given 02/09/2017 9:25 AM EDT 9 mLs documented in this encounter Care Teams Bioinformatics Technician Relationship Specialty Start Date End Date Valencia Adhikari APRN [address] [place] [address] PCP - General 04/21/14 07/04/23 documented as of this encounter
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
--- OUTSIDE RECORDS SUMMARY | 2023-10-29 04:00 | XMS_ITS | Encounter Summary ---
Author Organization [facility] Address [facility] [place] [address] Care Team Providers Care Tibco Developer Name Role Phone Valencia Adhikari APRN Primary Care Provider [phone] Encounter Details Date Type Department Care Team (Latest Contact Info) Description 03/20/2017 1:52 PM EST - 03/20/2017 11:59 PM [facility] Hospital Encounter XRay at [address] [place] [address] Kedar Santos MD [facility] [place] [address] Left shoulder pain, unspecified chronicity Discharge Disposition: Home 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 Tobacco Use [...] Contact Info) Description 05/23/2024 [place] [address] Maite Malloy MD [facility] [address] OBSTETRICS [place] [address] documented as of this encounter Procedures Procedure Name Priority Date/Time Associated Diagnosis Comments XR FLUORO INJECTION DRAINAGE JOINT LG LEFT Routine 03/20/2017 3:21 PM EST Left shoulder pain, unspecified chronicity US GUIDED INJECTION TENDON SHEATH LEFT Routine 03/20/2017 3:21 PM EST Left shoulder pain, unspecified chronicity documented in this encounter Results * XR Fluoro Guided Joint Injection Large Left (03/20/2017 3:21 PM EST) Anatomical Region Laterality Modality Left Radio Fluoroscop y Impressions 03/20/2017 4:16 PM EST Uneventful left glenohumeral injection under fluoroscopy. Resident/Fellow: None Attending: Dr. Amanda TOLEDO Procedure performed by Sally Joya APRN Narrative 03/20/2017 4:16 PM EST HISTORY: Left shoulder pain, inject for diagnostic/therapeutic purposes. LEFT SHOULDER JOINT INJECTION UNDER FLUOROSCOPY TECHNIQUE: After an extensive conversation with the patient regarding risks and benefits, oral and written consent were obtained. ??A pre- procedural time-out was performed as per [facility] protocol. The patient was placed supine on the fluoroscopic table. ??The skin overlying the left anterior shoulder was prepped and draped in the usual aseptic manner. 1% Lidocaine was used to achieve local anesthesia. Under fluoroscopic guidance, 22 gauge 3.5 spinal needle was advanced into the joint space. ??Small amount of air was injected to the document needle placement. ??A mixture of Ropivacaine and triamcinolone acetonide was injected. All needles removed at end of procedure. FINDINGS: 1. ??Small amount of injected air in the left glenohumeral joint space. 2. ??PAIN SCORE: ??Before: ??After: 3. Fluoroscopy time: 0.10 minutes 4. Medications: ??Lidocaine 1% - <5 ml, for subcutaneous anesthesia ??Ropivacaine HCL ??0.5% - 3 ml ??Triamciolone Acetonide ??- 40 mg COMPLICATIONS: ??None immediate. POST-PROCEDURE CARE: Information regarding monitor of infection, post- procedural pain and management of steroid flare were reviewed with patient. Procedure Note Sally Joya, [employer] - 03/20/2017 HISTORY: Left shoulder pain, inject for diagnostic/therapeutic purposes. LEFT SHOULDER JOINT INJECTION UNDER FLUOROSCOPY TECHNIQUE: After an extensive conversation with the patient regardingrisks and benefits, oral and written consent were obtained. A pre- proceduraltime-out was performed as per [facility] protocol. The patient was placed supine on the fluoroscopic table. The skinoverlying the left anterior shoulder was prepped and draped in the usual aseptic manner.1% Lidocaine was used to achieve local anesthesia. Under fluoroscopicguidance, 22 gauge 3.5 spinal needle was advanced into the joint space. Small amountof air was injected to the document needle placement. A mixture of Ropivacaineand triamcinolone acetonide was injected. All needles removed at end ofprocedure. FINDINGS: 1. Small amount of injected air in the left glenohumeral joint space. 2. PAIN SCORE: Before: After: 3. Fluoroscopy time: 0.10 minutes 4. Medications: Lidocaine 1% - <5 ml, for subcutaneous anesthesia Ropivacaine HCL 0.5% - 3 ml Triamciolone Acetonide - 40 mg COMPLICATIONS: None immediate. POST-PROCEDURE CARE: Information regarding monitor of infection, post- procedural pain and management of steroid flare were reviewed withpatient. IMPRESSION Uneventful left glenohumeral injection under fluoroscopy. Resident/Fellow: None Attending: Dr. Amanda TOLEDO Procedure performed by Sally Joya APRN Kedar Santos MD IMG FLUORO ORDERABLE S * US Guided Tendon Sheath Injection Left (03/20/2017 3:21 PM EST) Anatomical Region Laterality Modality Left Radio Fluoroscop y Impressions 03/20/2017 4:01 PM EST Uneventful left long head the biceps tendon sheath joint injection under sonographic guidance. Resident/ Fellow: None. Attending: Amanda TOLEDO M.D. I performed this procedure. Narrative 03/20/2017 4:01 PM EST HISTORY: Left shoulder pain. LEFT LONG HEAD OF THE BICEPS TENDON SHEATH INJECTION UNDER SONOGRAPHIC GUIDANCE TECHNIQUE: After an extensive conversation with the patient regarding risks and benefits, oral and written consent were obtained. ??A pre- procedural time-out was performed as per [facility] protocol. The patient was placed supine on the fluoroscopic table with the left shoulder externally rotated. Limited preprocedure imaging of the left long head of the biceps tendon demonstrated no evidence of tear or abnormal peritendinous fluid. The skin overlying the left long head of the biceps tendon sheath at the level of the bicipital groove was prepped and draped in the usual aseptic manner. 1% Lidocaine was used to achieve local anesthesia. Under sonographic guidance, a 22 gauge needle was advanced into the left long head of the biceps tendon sheath at the lateral aspect of the tendon. ??Small amount of the medication mixture was injected to the document needle placement. ??A mixture of Ropivacaine and Depo-Medrol was injected. All needles removed at end of procedure. ? FINDINGS: 1. ??Small amount of injected fluid in the left long head of the biceps tendon sheath. 2. ??PAIN SCORE: ??Before: 12/24 ??After: ??12/24 3. Medications: ??Lidocaine 1% - <5 ml, for subcutaneous anesthesia ?? A mixture composed of the following medication was prepared: Ropivacaine HCL ??0.5% - 0.8 ml (4 mg) methylPREDNISolone acetate 40: 1 ml (40 mg) Total injected volume: 1.5 ml COMPLICATIONS: None immediate. POST-PROCEDURE CARE: Information regarding monitor of infection, post- procedural pain and management of steroid flare were reviewed with patient. Procedure Note Amanda Toledo MD - 03/20/2017 HISTORY: Left shoulder pain. LEFT LONG HEAD OF THE BICEPS TENDON SHEATH INJECTION UNDER SONOGRAPHICGUIDANCE TECHNIQUE: After an extensive conversation with the patient regarding risks andbenefits, oral and written consent were obtained. A pre- procedural time-out was performed as per [facility] protocol. The patient was placed supine on the fluoroscopic table with the leftshoulder externally rotated. Limited preprocedure imaging of the left long head ofthe biceps tendon demonstrated no evidence of tear or abnormal peritendinousfluid. The skin overlying the left long head of the biceps tendon sheath at thelevel of the bicipital groove was prepped and draped in the usual asepticmanner. 1% Lidocaine was used to achieve local anesthesia. Under sonographicguidance, a 22 gauge needle was advanced into the left long head of the biceps tendonsheath at the lateral aspect of the tendon. Small amount of the medication mixturewas injected to the document needle placement. A mixture of Ropivacaine and Depo-Medrol was injected. All needles removed at end of procedure. ? FINDINGS: 1. Small amount of injected fluid in the left long head of the bicepstendon sheath. 2. PAIN SCORE: Before: 12/24 After: 12/24 3. Medications: Lidocaine 1% - <5 ml, for subcutaneous anesthesia A mixture composed of the following medication was prepared: Ropivacaine HCL 0.5% - 0.8 ml (4 mg) methylPREDNISolone acetate 40: 1 ml (40 mg) Total injected volume: 1.5 ml COMPLICATIONS: None immediate. POST-PROCEDURE CARE: Information regarding monitor of infection, post- procedural pain and management of steroid flare were reviewed withpatient. IMPRESSION Uneventful left long head the biceps tendon sheath joint injection under sonographic guidance. Resident/ Fellow: None. Attending: Amanda TOLEDO M.D. I performed this procedure. K[facility] ORDER[facility]L ES documented in this encounter Visit Diagnoses Diagnosis Left shoulder pain, unspecified chronicity documented in this encounter Administered Medications Inactive Administered Medications - up to 3 most recent administrations Medication Order MAR Action Action Date Dose Rate Site ROpivacaine (PF) 5 mg/mL (0.5 %) 4 mL with triamcinolone acetonide 40 mg injection Intra-articular, ONCE, 1 dose, On Sun03/20/17 at 1500 Given 03/20/2017 2:50 PM EST 03- Shoulder (Left) ROpivacaine (PF) 5 mg/mL (0.5 %) 4 mL with triamcinolone acetonide 40 mg injection Intra-articular, ONCE, 1 dose, On Sun03/20/17 at 1545 Given 03/20/2017 3:45 PM EST 03- Shoulder (Left) documented in this encounter Care Teams Tibco Developer Relationship Specialty Start Date End Date Valencia Adhikari APRN [address] [place] [address] PCP - General 04/21/14 07/04/23 documented as of this encounter
--- OUTSIDE RECORDS SUMMARY | 2023-10-29 04:00 | XMS_ITS | Encounter Summary ---
Author Organization [facility] Address [facility] [place] [address] Care Team Providers Care Candy Mixer Name Role Phone Valencia Adhikari APRN Primary Care Provider [phone] Encounter Details Date Type Department Care Team (Latest Contact Info) Description 05/15/2017 10:47 AM EST - 05/15/2017 11:59 PM [facility] Hospital Encounter XRay at [address] [place] [address] Kedar Santos MD [facility] [place] [address] Left shoulder pain, unspecified chronicity Discharge Disposition: [...] Sig Dispensed Refills Start Date End Date lidocaine (LIDODERM) 5 % Adhesive Patch, Medicated Apply 1 patch onto the skin daily. (leave on for 12 hours and remove for 12 hours) 30 patch 2 05/15/2017 06/27/2017 diclofenac (VOLTAREN) 1 % Gel Apply 2 g topically 4 times daily. 100 g 1 05/15/2017 06/27/2017 baclofen (LIORESAL) 10 mg Tablet Take 10 [...] levonorgestrel (MIRENA) 20 mcg/24 hr (5 years) IUDIndications:insert ed 03/14/2016 1 each by Intrauterine route once. Indications: inserted 03/14/2016 03/14/2016 08/04/2020 meclizine (ANTIVERT) 12.5 mg Tablet Take 12.5 mg by mouth 3 times daily as needed. 8 documented as of this encounter Plan of Treatment Upcoming Encounters Date Type Department Care Team (Late st Contact Info) Description 05/23/2024 Hospital [place] [address] Maite Malloy MD [facility] [address] [place] [address] documented as of this encounter Procedures Procedure Name Priority Date/Time Associated Diagnosis Comments XR SHOULDER LEFT Routine 05/15/2017 11:0 0 AM EST Left shoulder pain, unspecified chronicity documented in this encounter Results * XR Shoulder Left (Generic) (05/15/2017 11:00 AM EST) Anatomical Region Laterality Modality Shoulder Left Digital Radiogra phy Impressions 05/15/2017 11:59 AM EST No acute bony fracture or malalignment. Narrative 05/15/2017 11:59 AM EST EXAMINATION: XR SHOULDER LEFT (GENERIC) CLINICAL HISTORY: Left Shoulder Pain WC DoI: 09/06/16 TECHNIQUE: Axillary, Y view and internal and external rotation views of the left shoulder COMPARISON: None FINDINGS: Humeral head well located in the glenoid fossa. No acute bony fractures. Visualized left ribs are normal. Visualized portions of the left lung is normal. No soft tissue calcification. Procedure Note Lucy Warner MD - 05/15/2017 EXAMINATION: XR SHOULDER LEFT (GENERIC) CLINICAL HISTORY: Left Shoulder Pain WC DoI: 09/06/16 TECHNIQUE: Axillary, Y view and internal and external rotation views of the leftshoulder COMPARISON: None FINDINGS: Humeral head well located in the glenoid fossa. No acute bony fractures. Visualized left ribs are normal. Visualized portions of the left lung isnormal. No soft tissue calcification. IMPRESSION No acute bony fracture or malalignment. Kedar Santos MD IMG DX ORDERABLES documented in this encounter Visit Diagnoses Diagnosis Left shoulder pain, unspecified chronicity documented in this encounter Care Teams Candy Mixer Relationship Specialty Start Date End Date Valencia Adhikari, [place] [address] [place] [address] PCP - General 04/21/14 07/04/23 documented as of this encounter
--- OUTSIDE RECORDS SUMMARY | 2023-10-29 04:00 | XMS_ITS | Encounter Summary ---
[place] [address] Care Team Providers Care Hammersmith Helper Name Role Phone Valencia Adhikari APRN Primary Care Provider [phone] Reason for Visit * Reason Onset Date Comments Pre Procedure Call 07/03/2017 Encounter Details Date Type Department Care Team (Late st Contact Info) Description 07/03/2017 [place] [id number] Valentina Rincon LNA Pre Procedure Call 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 Tobacco Use Types Packs/Day Years [...] encounter Miscellaneous Notes * Telephone Encounter - Valentina Rincon LNA - 07/03/2017 10:20 AM EDT Andree Godoy Estephanie :1990 Contact made with patient: I spoke to Ms. Hummel at 10:20 AM regarding her upcoming Left US Biceps Tendon Sheath Steroid Injectionb & Glenohumeral Steroid Injection scheduled on 07/05/2017 scheduled at 8:30AM with Dr. Tucker Altamirano DO. Medication and Allergy reconciliation: 1. Changes were made in the telephone encounter per patient; marked as reviewed, and closed. 2. Patient confirmed no IVP dye allergy. 3. Have you had any steroid injections anywhere in your body within the last two weeks? no Arrival time: The patient was instructed to arrive at 8:00AM on 07/05/2017. Flight Test Data Acquisition Technician: The patient was reminded that they need to have a after school driver accompany them to her procedure who will remain onsite. Antibiotics/Skin assessment/Illness symptoms/Pain level assessment : 1. The patient confirmed that she is not taking antibiotics at this time. 2. The patient confirmed that she does not have any rashes, blisters, or skin breakdown on their body. 3. The patient confirmed that she does not have any active infections. 4. The patient confirmed that she does not have any symptoms of illness: fever, chills, cold, flu, nausea, vomiting. 5. The patient confirmed that she is still experiencing significant pain. Pain and Anti-anxiety Medications: 1. Nerve Block Procedure Patients: Patient was instructed NOT to take their pain medications on theday of the procedure and anti-anxiety medications are part of their daily medication regiment; theycan and should continue taking that medication. 2. All Other Procedure Patients: The patient was instructed that if they take daily pain or anti-anxiety medications, they can and should continue taking on the day of the procedure. Does patient have history of any diagnosed bleeding disorders: No Anticoagulants: No NSAIDs: Does the patient take Aspirin/ASA? No Does the patient take an NSAID? No Implant: Patient has pacemaker/defibrillator: No Prior to checking in at [employer], please be sure to empty your bladder. Patient confirmed understanding that if they do not follow the above their instructions, their procedure is likely to be cancelled. KIERAN Earl documented in this encounter Plan of Treatment Upcoming Encounters Date Type Department Care Team (Late st Contact Info) Description 05/23/2024 [place] [address] Maite Malloy MD [facility] OBSTETRICS [place] [address] documented as of this encounter Visit Diagnoses Not on filedocumented in this encounter Care Teams Hammersmith Helper Relationship Specialty Start Date End Date Valencia Adhikari APRN [address] [place] [address] PCP - General 04/21/14 07/04/23 documented as of this encounter
--- OUTSIDE RECORDS SUMMARY | 2023-10-29 04:00 | XMS_ITS | Encounter Summary ---
Author Organization [facility] [place] [address] Care Team Providers Care Energy Consultant Name Role Phone Valencia Adhikari APRN Primary Care Provider [phone] Encounter Details Date Type Department Care Team (Late st Contact Info) Description 07/04/2018 8:30 AM EDT Office Visit Psychiatry [place] [address] Argelia Mccray [employer] [facility] [place] [address] Bipolar II disorder; Depression, unspecified depression type; Anxiety 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 [...] Progress Notes * Argelia Mccray APRN - 07/04/2018 8:30 AM EDT ESTABLISHED ADULT PATIENT OFFICE VISIT NOTE Time Spent: 20min Attendee(s): Client only Chief Complaint: Anxiety is out of control History of Present Illness: () (Quality, Severity, Duration, Timing, Context, Modifying factors, Associated S&S) Andree Hummel is a 28 y.o. female presents today with anxiety, depression, bipolar II (?) - Anxiety has been out of control - Mood is up, felicitas, left, right - primary worry: has been notified by her son's teacher that he has been telling people his father is (Note: the client's son's father is not ); the client is anxious about how the talk with her son will go; knew she would have to have this talk with her son, but was not expecting it to be so soon - continues to work at [employer] Substance Use: Tobacco use Safety: Low, no SI/HI Questionnaires: PHQ9 Questionnaires Data (Clinic and Pt Entered): last 4 values PHQ-9 QUESTIONNAIRE LAST 4 VALUES (AMB) 11/08/2017 12/13/2017 02/21/2018 03/21/2018 PHQ - 9 Score (Patient) 14 (Moderate Depression) 14 (Moderate Depression) 17 (Moderately Severe Depression) 17 (Moderately Severe Depression) Little interest or pleasure (Clinic) - - - - Little interest or pleasure (Patient) More than half the days Several days More than half the days More than half the days Down, depressed, hopeless (Clinic) - - - - Down, depressed, hopeless (Patient) Several days More than half the days More than half the days Nearly every day Trouble sleeping (Patient) Nearly every day Nearly every day Nearly every day Several days Tired or no energy (Patient) More than half the days Several days More than half the days More thanhalf the days Poor appetite or overeating (Patient) Nearly every day More than half the days Nearly every day Nearly every day Feeling like a failure (Patient) Several days More than half the days Several days More than half the days Trouble concentrating (Patient) More than half the days Several days Nearly every day Nearly every day Moving or speaking slowly (Patient) Not at all More than half the days Several days Several days Would be better off (Patient) Not at all Not at all Not at all Not at all GAD7 Questionnaires Data: last 4 values CHARISSE-7 Patient Reported Responses 11/08/2017 12/13/2017 02/21/2018 03/21/2018 Nervous, anxious (Patient) Nearly every day Nearly every day Nearly every day Nearly every day Unable to stop worrying (Patient) Nearly every day More than half the days Nearly every day Nearly every day Worrying about different things (Patient) Nearly every day Nearly every day Nearly every day Nearlyevery day Trouble relaxing (Patient) Nearly every day More than half the days Nearly every day Nearly every day Restless (Patient) Nearly every day More than half the days More than half the days More than half the days Easily annoyed, irritable (Patient) Nearly every day Nearly every day Nearly every day Nearly everyday Afraid something awful will happen (Patient) More than half the days Several days Several days Several days Difficulty (Patient) Extremely difficult Very difficult Extremely difficult Extremely difficult CHARISSE-7 Score (Patient) 20 (Severe Anxiety) 16 (Severe Anxiety) 18 (Severe Anxiety) 18 (Severe Anxiety) Current Medications: Current Outpatient Medications on File Prior to Visit Medication Sig Dispense Refill ??? LORazepam (ATIVAN) 0.5 mg Tablet Take 1 tablet by mouth 2 times daily as needed for Anxiety. 60tablet 0 ??? celecoxib (CELEBREX) 200 mg Capsule Take 1 capsule by mouth daily. 30 capsule 1 ??? lidocaine (LIDODERM) 5 % Adhesive Patch, Medicated Apply 1 patch onto the skin daily. (leave onfor 12 hours and remove for 12 hours) 30 patch 2 ??? venlafaxine (EFFEXOR-XR) 37.5 mg Capsule, Sust. Release 24 hr Take 1 capsule by mouth daily. 30capsule 3 ??? lamoTRIgine (LAMICTAL) 150 mg Tablet Take 1.5 tablets by mouth daily. 45 tablet 3 ??? 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 Has a 5 year old son named Fabio. 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 Vitals (24hr Range): No data found. Musculoskeletal System: normal gait and balance and ambulates independently Mental Status Exam: ?? Appearance: age appropriate ?? Behavior: cooperative with the interview and calm ?? Speech: normal pitch, normal volume, normal rate and normal rhythm ?? Language: fluent in dutch ?? Mood: Anxious ?? Affect: mood-congruent ?? Thought Process: linear [...] Heme: WBC Date Value Ref Range Status 10/04/2017 7.5 4.0 - 9.5 x10(3)/mcL Final Hematocrit Date Value Ref Range Status 10/04/2017 40.0 35.7 - 45.8 % Final Platelets Date Value Ref Range Status 10/04/2017 198 145 - 357 x10(3)/mcL Final MCV Date Value Ref Range Status 10/04/2017 99.3 (H) 82.6 - 94.4 fL Final Neutr Abs (ANC) Date Value Ref Range Status 10/04/2017 5.34 1.70 - 6.10 x10(3)/mcL Final No results found for: HA1C, SEDRATE Chem: Sodium Date Value Ref Range Status 10/04/2017 142 135 - 145 mmol/L Final Potassium Date Value Ref Range Status 10/04/2017 4.2 3.5 - 5.0 mmol/L Final Comment: Please note: Patients with WBC >100,000 may have falsely elevated Potassium levels. For accurate Potassium quantification in these patients send serum separator tube (banner top) for subsequent determinations. Contact the Clinical Chemistry Laboratory if there are any questions. Chloride Date Value Ref Range Status 10/04/2017 107 98 - 107 mmol/L Final CO2 Date Value Ref Range Status 10/04/2017 22 22 - 31 mmol/L Final BUN Date Value Ref Range Status 10/04/2017 7 (L) 8 - 18 mg/dL Final Glucose Lvl Date Value Ref Range Status 10/04/2017 94 65 - 199 mg/dL Final Comment: Diabetes: >=200 mg/dL plus symptoms Calcium Date Value Ref Range Status 10/04/2017 9.3 8.5 - 10.5 mg/dL Final LFTs: ALT Date Value Ref Range Status 10/04/2017 11 0 - 30 unit/L Final AST Date Value Ref Range Status 10/04/2017 14 0 - 30 unit/L Final Alk Phos Date Value Ref Range Status 10/04/2017 67 40 - 104 unit/L Final Total Bilirubin Date Value Ref Range Status 10/04/2017 0.9 0.2 - 1.3 mg/dL Final Thyroid: TSH Date Value Ref Range Status 10/04/2017 0.90 0.27 - 4.20 mlU/ML Final T4, total Date Value Ref Range Status 10/04/2017 8.5 5.1 - 10.8 mcg/dL Final Comment: Reference Range: Cord Blood: 6.9-14.4 mcg/dL Females: 7.2-14.2 mcg/dL Pediatric ranges: Interpret with caution-ranges have not been verified Free T4 Date Value Ref Range Status 10/04/2017 1.74 (H) 0.93 - 1.70 ng/dL Final Lipids and HgbA1C: No results found for: CHLPL, HDL, CHOLHDL, LDLCHOL, LDLDIRECT, TRIG No results found for: HA1C Vit Lvls: No results found for: [id number], SFOLATE Tox: No results found for: ETHANOL, ACTMNPHEN, SALICYLATE, LEAD No results found for: UDAUSCREEN Rx Lvls: Lamotrigine Lvl Date Value Ref Range Status 10/04/2017 1.4 (L) 2.5 - 15.0 mcg/mL Final Comment: ADDITIONAL INFORMATION This test was developed and its performance characteristics determined by [facility] in a manner consistent with CLIA requirements. This test has not been cleared or approved by the U.S. Food and Drug Administration. Test Performed by: [facility] - [facility] [address] [place] [address] Formulation and Assessment: Overall Formulation: Andree UnderwoodWilliams is a 28 y.o. Female depression (likely [...] disorder CURRENT ASSESSMENT: Andree continues to endorse anxiety and fluctuating mood along with external stressors, which are likely exacerbating these symptoms. We discussed increasing her Effexor XR dose as she is at the starting dose, which she was agreeable to. Andree was also unaware that she was ableto request a refill of her Ativan, which she has found helpful for acute anxiety. Relayed to Seema simply needs to ask for a refill when she is out. Andree voiced her understanding of this. Given that Andree has a history of hypothyroidism and is postsurgical s/p thyroid cancer and is on synthroid, we will have labs drawn today to see what her levels are. The labs indicate her TSH is high, which may account for the increased anxiety as well as mood shifts Andree has been experiencing. Messaged the client and encouraged her to follow-up with her primary care. Supportive therapy provided regarding the situation with her son. Safety Assessment: Low, No SI/HI Plan: 1) Increase Effexor XR to 75mg PO QD 2) Ativan renewal 3) CBC w/diff, Thyroid panel, CMP, Lamotrigine level Patient Instruction/Education provided: Patient provided verbal instructions regarding medication side effects, safety plan in case of feeling unsafe. Patient understands the plan? Yes Signed By: Argelia Mccray APRN 07/04/2018 documented in this encounter Plan of Treatment Upcoming Encounters Date Type Department Care Team (Late st Contact Info) Description 05/23/2024 Hospital [place] [phone] Maite Malloy MD [facility]ST[facility] [place] [address] documented as of this encounter Procedures Procedure Name Priority Date/Time Associated Diagnosis Comments LAMOTRIGINE LVL Routine 07/04/2018 9:44 AM EDT Bipolar II disorder THYROGLOBULIN ANTIBODY Routine 9 9:44 AM EDT Bipolar II disorder HEMOGRAM Routine 07/04/2018 9:44 AM EDT Bipolar II disorder DIFFERENTIAL, AUTOMATED Routine 07/04/2018 9:44 AM EDT Bipolar II disorder CBC (WITH DIFF) Routine 07/04/2018 9:44 AM EDT Bipolar II disorder T3, FREE Routine 07/04/2018 9:44 AM EDT Bipolar II disorder TSH Routine 07/04/2018 9:44 AM EDT Bipolar II disorder T4, FREE Routine 07/04/2018 9:44 AM EDT Bipolar II disorder T4 TOTAL Routine 07/04/2018 9:44 AM EDT Bipolar II disorder COMPREHENSIVE METABOLIC PANEL (NON-FASTING) Routine 07/04/2018 9:44 AM EDT Bipolar II disorder documented in this encounter Results * Differential, Automated (07/04/2018 9:44 AM EDT) Neutrophils % 60.9 % [facility] Neutr Abs (ANC) 4.46 1.70 - 6.10 x10(3)/[facility] LAB[facility] Lymphocytes % 28.5 % [facility] Lymphocytes Abs 2.1 0.9 - 3.2 x10(3)/[facility] LABOR[facility] Monocytes % 8.6 % [facility] Monocyte Abs 0.6 0.3 - 0.9 x10(3)/[facility] LABOR[facility] Eosinophils % 1.2 % [facility] Eosinophils Abs 0.1 0.0 - 0.4 x10(3)/[facility] LAB[facility] Basophils % 0.5 % [facility] Basophils Abs 0.0 0.0 - 0.1 x10(3)/[facility] LABORAT[facility] Immature Gran % 0.30 % [facility] Comment: Immature granulocytes(IG's)percentage and absolute count will include metamyelocytes, myelocytes, and promyelocytes. Blood smears from CBCs yielding IG's will be scanned manually for concordance. If this scan disagrees with the automated IG or if promyelocytes are noted, a manual differential will be performed. Kimmy Gran Abs 0.02 0.00 - 0.04 x10(3)/[facility] LABORAT[facility] Blood specimen (specimen) 07/04/2018 9:44 AM EDT 07/04/2018 10:05 AM EDT Narrative Resulting Agency Comment Spec In Lab Argelia Mccray APRN HEMATOLOGY ORDE CONCEPCION Performing Organization Address City/State/[facility] Co de Phone Number [facility] [place] [address] * (ABNORMAL) Hemogram (07/04/2018 9:44 AM EDT) WBC 7.3 4.0 - 9.5 x10(3)/[facility] LABORAT[facility] RBC 3.84(L) 4.00 - 5.21 x10(6)/[facility] Hemoglobin 12.9 11.7 - 15.5 gm/dL [facility] Hematocrit 38.7 35.7 - 45.8 % [facility] MCV 100.8(H) 82.6 - 94.4 fL [facility] MCH 33.6(H) 27.1 - 32.0 pg [facility] MCHC 33.3 31.7 - 35.0 gm/dL [facility] Platelets 216 145 - 357 x10(3)/[facility] RDWSD 47.5(H) 37.0 - 46.0 fL [facility] RDWCV 12.8 11.5 - 14.1 % [facility] MPV 11.6 7.6 - 12.9 fL [facility] nRBC % Auto 0.0 % [facility] nRBC Abs Auto 0.000 0.000 - 0.000 x10(3)/mcL [facility] Blood specimen (specimen) 07/04/2018 9:44 AM EDT 07/04/2018 10:05 AM EDT Narrative Resulting Agency Comment Spec In Lab Argelia Naranjo Shazia ABREUN HEMATOLOGY ORDE RABLES Performing Organization Address [facility]/ZIP Co de Phone Number [facility] [place] [address] * Lamotrigine Lvl (07/04/2018 9:44 AM EDT) Lamotrigine Lvl 3.2 2.5 - 15.0 mcg/mL [facility] Comment: ADDITIONAL INFORMATION This test was developed and its performance characteristics determined by [facility] in a manner consistent with CLIA requirements. This test has not been cleared or approved by the U.S. Food and Drug Administration. Test Performed by: [facility] - [address] [address] Blood specimen (specimen) 07/04/2018 9:44 AM EDT 07/04/2018 12:33 PM EDT Narrative Resulting Agency Comment Spec In Lab Zaynabjeff Naranjo Shazia SLADE CHEMISTRY ORDER AMANDA Performing Organization Address [facility]/ZIP Co de Phone Number [facility] [place] [address] * Comprehensive metabolic panel (non-fasting) (07/04/2018 9:44 AM EDT) Glucose Lvl 90 65 - 199 mg/dL [facility] Comment:Diabetes: >=200 mg/d L plus symptoms BUN 9 8 - 18 mg/dL [facility] Creatinine 0.78 0.70 - 1.20 mg/dL [facility] Sodium 138 135 - 145 mmol/L [facility] Potassium 3.9 3.5 - 5.0 mmol/L [facility] Comment: Please note: ??Patients with WBC >100,000 may have falsely elevated Potassium levels. ??For accurate Potassium quantification in these patients send serum separator tube (gold top) for subsequent determinations. ??Contact the Clinical Chemistry Laboratory if there are any questions. Chloride 101 98 - 107 mmol/L [facility] CO2 26 22 - 31 mmol/L [facility] Anion Gap 11 5 - 15 mmol/L [facility] Calcium 9.1 8.5 - 10.5 mg/dL [facility] Total Protein 6.4 6.1 - 8.0 gm/dL [facility] Albumin 4.2 3.2 - 5.2 gm/dL [facility] AST 12 0 - 30 unit/L [facility] ALT 10 0 - 30 unit/L [facility] Alk Phos 79 40 - 104 unit/L [facility] Total Bilirubin 0.4 0.2 - 1.3 mg/dL [facility] Estimated GFR 104 >=60 mL/min/1. 73 m?? [facility] Comment: The eGFR was calculated using the CKD-EPI equation. As with all creatinine based estimates of kidney function, eGFR values calculated with the CKD-EPI equation are not accurate in patients with acute kidney failure, extremes of body mass or the acutely ill. [email or web address] eGFR 121 >=60 mL/min/1. 73 m?? [facility] Comment: The eGFR was calculated using the CKD-EPI equation. As with all creatinine based estimates of kidney function, eGFR values calculated with the CKD-EPI equation are not accurate in patients with acute kidney failure, extremes of body mass or the acutely ill. [email or web address] Blood specimen (specimen) 07/04/2018 9:44 AM EDT 07/04/2018 10:04 AM EDT Narrative Resulting Agency Comment Spec In Lab Argelia Mccray APRN CHEMISTRY ORDER AMANDA [facility] [place] [address] * (ABNORMAL) TSH (07/04/2018 9:44 AM EDT) TSH 7.30(H) 0.27 - 4.20 mcIU/mL [facility] Blood specimen (specimen) 07/04/2018 9:44 AM EDT 07/04/2018 10:04 AM EDT Narrative Resulting Agency Comment Spec In Lab Argelia Mccray APRN CHEMISTRY ORDER AMANDA Performing Organization Address City/[facility]/ZIP Co de Phone Number [facility] [place] [address] * Thyroglobulin Antibody (07/04/2018 9:44 AM EDT) Thyroglob Ab <20.0 0.0 - 40.0 IU/mL [facility] Blood specimen (specimen) 07/04/2018 9:44 AM EDT 07/04/2018 2:05 PM EDT Narrative Resulting Agency Comment Spec In Lab Argelia Mccray APRN CHEMISTRY ORDER AMANDA [facility] [place] [address] * T4, free (07/04/2018 9:44 AM EDT) Free T4 1.15 0.93 - 1.70 ng/dL [facility] Blood specimen (specimen) 07/04/2018 9:44 AM EDT 07/04/2018 10:04 AM EDT Narrative Resulting Agency Comment Spec In Lab Argelia Mccray [employer] CHEMISTRY ORDER AMANDA Performing Organization Address City/[facility]/ZIP Co de Phone Number [facility] [place] [address] * T4 Total (07/04/2018 9:44 AM EDT) T4, total 5.7 5.1 - 10.8 mcg/dL [facility] Comment: Reference Range: Vestal Cord Blood: ??6.9-14.4 mcg/dL Females: ??7.2-14.2 mcg/dL Pediatric ranges: ??Interpret with caution-ranges have not been verified Blood specimen (specimen) 07/04/2018 9:44 AM EDT 07/04/2018 10:04 AM EDT Narrative Resulting Agency Comment Spec In Lab Argelia Mccray [employer] CHEMISTRY ORDER AMANDA Performing Organization Address City/[facility] Co de Phone Number [facility] [place] [address] * T3, free (07/04/2018 9:44 AM EDT) T3, Free 2.6 2.0 - 4.4 pg/mL [facility] Blood specimen (specimen) 07/04/2018 9:44 AM EDT 07/04/2018 10:04 AM EDT Narrative Resulting Agency Comment Spec In Lab Argelia Mccray [employer] CHEMISTRY ORDER AMANDA Performing Organization Address City/[facility]/ZIP Co de Phone Number [facility] [place] [address] documented in this encounter Visit Diagnoses Diagnosis Bipolar II disorder Other bipolar disorders Depression, unspecified depression type Anxiety Anxiety state, unspecified documented in this encounter Care Teams Energy Consultant Relationship Specialty Start Date End Date Valencia Adhikari APRN [address] [place] [address] PCP - General 04/21/14 07/04/23 documented as of this encounter
--- OUTSIDE RECORDS SUMMARY | 2023-10-29 04:00 | XMS_ITS | Encounter Summary ---
Author Organization [facility] Address [facility] [place] [address] Care Team Providers Care Battery Mechanic Name Role Phone Valencia Adhikari APRN Primary Care Provider [phone] Reason for Visit * Reason Onset Date Comments Other 06/07/2017 Encounter Details Date Type Department Care Team (Late st Contact Info) Description 06/07/2017 Telephone Care Management [facility] [place] [id number] Carmina Marshall, LABORATORY MANAGER [facility] [place] [address] Other 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 Tobacco Use Types Packs/Day Years [...] encounter Miscellaneous Notes * Telephone Encounter - Carmina Marshall LABORATORY MANAGER - 06/07/2017 9:31 AM EST Images from the original note were not included. Pt was scheduled as a [facility] pt work up w/ on 06-05-17. Workers comp insurance is: [id number], DOI: 09-06-16, Employer: [employer]. assessment and tx plan recommendations are the following: Assessment ? 1. Rotator cuff tendinitis, left 2. Biceps tendinitis of left shoulder ? PLAN: ? 26 year old female with chronic pain in her left shoulder secondary to a work- related injury sustained on 09/06/2016. ?? On physical exam she demonstrates point tenderness at the anterior left lateral shoulder consistentwith left long head of biceps tendinitis. Additionally, she demonstrates point tenderness at the left greater tubercle consistent with left rotator cuff conjoined tendinitis. ?? She reports having received improvement with her prior left long head of biceps ultrasound-guided tendon sheath steroid injection and left glenohumeral ultrasound-guided intra-articular steroid injection. ?? I recommend that these injections be repeated. ?? Recommend she return to physical therapy with an emphasis on treating tendinitis of the left rotator cuff and left long head of biceps tendinitis. Modalities to be employed include ice, massage, heat, and ultrasound. ?? I will prescribe for her compounding pharmacy cream consisting of ketamine 10%, diclofenac 3%, gabapentin 6%, and lidocaine 5%. This should be applied to the anterior and posterior aspect of the leftshoulder. ?? No follow-up appointment is necessary at this time. However, she may follow up with our office on an as-needed basis. [facility] was unable to attend this appt but will facilitate insurance's access to 's 2-20 note and wc form, in an effort to advocate for needed authorization for pain provider's tx recommendations. P: [facility] will be available for f/u intervention PRN. [facility] will request [facility] admin staff fax pain provider's 2-20 office note and wc form to: [employer] property loss insurance claim adjuster, w/ goal to expedite insurance's PA for 's tx plan recommendations.. ?? documented in this encounter Plan of Treatment Upcoming Encounters Date Type Department Care Team (Late st Contact Info) Description 05/23/2024 [place] [address] Maite Malloy MD [facility] [place] [address] documented as of this encounter Visit Diagnoses Not on filedocumented in this encounter Care Teams Battery Mechanic Relationship Specialty Start Date End Date Valencia Adhikari APRN [address] [place] [address] PCP - General 04/21/14 07/04/23 documented as of this encounter
--- OUTSIDE RECORDS SUMMARY | 2023-10-29 04:00 | XMS_ITS | Encounter Summary ---
Author Organization [facility] [place] [address] Care Team Providers Care Chief Concierge Name Role Phone Valencia Adhikari APRN Primary Care Provider [phone] Reason for Referral * Consultation (Routine) - Closed Specialty Diagnoses / Procedures Referred By Lamont t Referred To Contact Pain Management Diagnoses Chronic left shoulder pain Kedar Santos MD [facility] [place] [address] [facility] [address] [place] [address] Referral ID Status Reason Start Date Expiration Date V isits Requested Visits Authorized [id number] Closed Consult, Test & Treat 05/15/2017 05/15/2018 1 1 Reason for Visit * Reason Comments Left Shoulder Pain DOI 09/06/2016 W/C Encounter Details Date Type Department Care Team (Late st Contact Info) Description 05/15/2017 11:30 AM EST Office [place] [phone] Kedar Santos MD [facility] ORTHOPAEDIC SURGERY [place], [place] [id number] Chronic left shoulder pain 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 Tobacco [...] Sign Reading Time Taken Comments Blood Pressure 123/74 05/15/2017 11:15 AM EST Pulse 91 05/15/2017 11:15 AM EST Temperature - - Respiratory Rate - - Oxygen Saturation - - Inhaled Oxygen Concentration - - Weight 88.5 kg (195 lb) 05/15/2017 11:15 AM EST pt reported Height 172.7 cm (5' 8) 05/15/2017 11:15 AM EST pt reported Body Mass Index 29.65 05/15/2017 11:15 AM EST documented in this encounter Progress Notes * Kedar Santos MD - 05/15/2017 11:30 AM EST Orthopedic follow-up note Chief complaint left shoulder pain Subjective: The patient returns in follow-up for her workers comp injury regarding her left shoulder after she tripped over something at work. She has had significant pain posteriorly in the shouldermostly with massaging by her physical therapist. She is unable to use her arm she states for 2-3 days after these episodes. She has tried lidocaine gel which helps for about 20 minutes.. The anteriorpain in the shoulder has dissipated. She has gained full range of motion back and does feel like she is making some improvement with her strength as well. Next Objective: Awake alert no acute distress Upper extremity: Exquisite tenderness palpation in the posterior aspect of the shoulder. Ratcheting weakness with empty can and external rotation testing. Full range of motion of the shoulder. 2+ radial pulse. Brisk cap refill distally. Sensation intact light touch throughout. Next Imaging: MRI of the left shoulder is not available for review but was done at [facility] and was reportedly negative. Next Assessment/plan: 26-year-old female with left shoulder pain with normal MRI. We discussed options including lidocaine patch, Voltaren gel, referral to pain clinic, repeat of the MRI with contrast, continuing physical therapy. She would like to pursue referral to the pain clinic as well as using thelidocaine patch and Voltaren gel. She will follow-up as needed and may need an independent medical exam to evaluate for her for MMI. Follow-up as needed if not improving or if she gets worse. We discussed possible surgery of her anterior pain returns though I discussed the guarded prognosis with surgery given her extreme posteriorpain. documented in this encounter Plan of Treatment Upcoming Encounters Date Type Department Care Team (Late st Contact Info) Description 05/23/2024 [place] [address] Maite Malloy MD [facility] DR OBSTETRICS [place] [address] Scheduled Referrals Name Type Priority Associated Diagnoses Orde r Schedule Referral to Pain Clinic Outpatient Referral Routine Chronic left shoulder pain Ordered: 05/15/2017 documented as of this encounter Visit Diagnoses Diagnosis Chronic left shoulder pain Pain in joint, shoulder region documented in this encounter Care Teams Chief Concierge Relationship Specialty Start Date End Date Valencia Adhikari APRN [address] [place] [address] PCP - General 04/21/14 07/04/23 documented as of this encounter
--- OUTSIDE RECORDS SUMMARY | 2023-10-29 04:00 | XMS_ITS | Encounter Summary ---
Author Organization [facility] [place] [address] Care Team Providers Care Unit Aide Name Role Phone Valencia Adhikari APRN Primary Care Provider [phone] Reason for Visit * Reason Comments Bipolar Disorder Encounter Details Date Type Department Care Team (Late st Contact Info) Description 11/08/2017 8:00 AM EDT Office Visit Psychiatry [place] [phone] Argelia Mccray MANAGER ICU [facility] [place] [address] Depression, unspecified depression type; Anxiety 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 [...] Sign Reading Time Taken Comments Blood Pressure 111/65 11/08/2017 8:03 AM EDT Pulse 85 11/08/2017 8:03 AM EDT Temperature - - Respiratory Rate - - Oxygen Saturation - - Inhaled Oxygen Concentration - - Weight 95.3 kg (210 lb) 11/08/2017 8:03 AM EDT Height 172.7 cm (5' 7.99) 11/08/2017 8:03 AM ED T Body Mass Index 31.94 11/08/2017 8:03 AM EDT documented in this encounter Progress Notes * MichaeldelilahArgelia, MANAGER ICU - 11/08/2017 8:00 AM EDT ESTABLISHED ADULT PATIENT OFFICE VISIT NOTE Time Spent: 25min Attendee(s): Client HISTORY Chief Complaint: Andree WallisTamara is a 27 y.o. Female presents today with anxiety, mooddisorder HPI: () Andree relays within the past two weeks she has been feeling anxious, irritable, and tearful. The client states she started to get off track with her exercise plan and diet. She relays being one month behind in bills and has a job interview today to help with her finances. She also relays that her father had a heart attack on Sunday and has been hospitalized at [facility]. Andree states she and her father do not have the greatest relationship, but that he is the only good male role model in her sons life. The client acknowledges these are stressful events in her life and speaks about them very factually and logically (my father has several medical conditions so he is more prone to heart attacks, people get behind on finances all of the time, etc). Andree relays how difficult it is for her to get up in the morning when she takes the Seroquel at night. She has not been sleeping well, and feels very tired during the day. Andree wonders whether the Seroquel would have a more efficacious effect if she was not so fatigued from being so anxious. The patient does not voice any safety concerns today. PHQ9 Questionnaires Data (Clinic and Pt Entered): last 4 values of depression scores PHQ-9 QUESTIONNAIRE SCORE ONLY (Patient) 08/16/2017 11/08/2017 PHQ - 9 Score (Patient) 18 (Moderately Severe Depression) 14 (Moderate Depression) No flowsheet data found. GAD7 Questionnaires Data: last 4 values of anxiety scores CHARISSE-7 Questionnaire Score Only 08/16/2017 11/08/2017 CHARISSE-7 Score (Patient) 15 (Severe Anxiety) 20 (Severe Anxiety) Current Medications: Current Outpatient Prescriptions Medication Sig Dispense Refill ??? busPIRone (BUSPAR) 10 mg Tablet Take 1 tablet by mouth 2 times daily. For anxiety 30 tablet 3 ??? lamoTRIgine (LAMICTAL) 150 mg Tablet Take 1 tablet by mouth daily. 30 tablet 0 ??? buPROPion (WELLBUTRIN XL) 150 mg Tablet Extended Release 24 hr Take 1 tablet by mouth every morning. 30 tablet 0 ??? QUEtiapine (SEROQUEL) 25 mg Tablet Take 1 tablet by mouth nightly as needed (For sleep). 30 tablet 0 ??? lidocaine (LIDODERM) 5 [...] [Meperidine] Anaphylaxis ??? Dilaudid [Hydromorphone (Bulk)] Hives Review of Systems: (04/17/09) CONST no recent [...] Status Evaluation: ?? Appearance: age appropriate and well groomed ?? Behavior: cooperative with the interview ?? Speech: normal pitch, normal volume, normal rate and normal rhythm ?? Language: fluent in setswana ?? Mood: Anxious ?? Affect: mood-congruent ?? [...] good ?? Judgment: good Pertinent psychiatry Labs: Lamictal level done at last visit (10/04): 1.4 (low) Psychotherapeutic Interventions and Response: Medication management. Empathic listening. Patient engaged in process and receptive to care. Given her increased mood lability and low Lamictal levels, it would be reasonable to not only increase Andree's Lamictal dose, but also her Buspar dose to more effectively combat her mood lability. Andree is agreeable to these changes. MEDICAL DECISION MAKING DIAGNOSIS: CHARISSE Mood Disorder (Bipolar II Disorder vs. Bipolar Disorder unspecified) CURRENT ASSESSMENT: nAdree had been stable and doing well up until the past two weeks. There are several external stressors, which although Andree is logically able to interpret and accept, may stilllikely be having an impact on her anxiety. Given that her Lamictal level is low, it would be reasonable to increase her dose to get to a therapeutic level. We will plan on increasing her Buspar dose as well. There are no safety concerns voiced by the patient today. PLAN: 1) Increase Lamictal to 200mg PO QD 2) Increase Buspar to 15mg PO BID 3) Continue Wellbutrin XL 150mg PO QAM 4) Continue Quetiapine 25mg PO QHS PRN SAFETY RISK ASSESSMENT Enduring Factors: history of substance abuse Dynamic Factors: symptoms of anxiety Protective Factors: engaged in medical and/or mental health care Access to Firearms: No Patient Instruction/Education provided: Patient provided verbal instructions regarding medication side effects, safety plan in case of feeling unsafe. Patient understands the plan? Yes We have previously discussed that I am available via [facility], but that I do not always check this daily, and should not be used in case of emergency. We have reviewed crisis numbers to call in case ofemergency. We have previously discussed limits to confidentiality, which include breaking confidentiality in the case of concern for imminent danger to self, someone else (including child and elder abuse) or ifrecords are subpoenaed by a dice manager. We also discussed that notes can be read by other clinicians andstaff involved in the patient's care. Argelia Mccray APRN 11/08/2017 documented in this encounter Plan of Treatment Upcoming Encounters Date Type Department Care Team (Late st Contact Info) Description 05/23/2024 [place] [address] Maite Malloy MD [facility] [address] [place] [address] documented as of this encounter Visit Diagnoses Diagnosis Depression, unspecified depression type Anxiety Anxiety state, unspecified documented in this encounter Care Teams Unit Aide Relationship Specialty Start Date End Date Valencia Adhikari APRN [address] [place] [address] PCP - General 04/21/14 07/04/23 documented as of this encounter
--- OUTSIDE RECORDS SUMMARY | 2023-10-29 04:00 | XMS_ITS | Encounter Summary ---
Author Organization [facility] [place] [address] Care Team Providers Care Forms Builder Name Role Phone OnofreValencia pitts [place] Primary Care Provider [phone] Encounter Details Date Type Department Care Team (Late st Contact Info) Description 01/28/2018 Telephone [place] [address] Martínez Knight 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 Tobacco Use Types Packs/Day Years [...] encounter Miscellaneous Notes * Telephone Encounter - Martínez Knight - 01/28/2018 9:20 AM EDT Called pt to reschedule but needs anesthesia - put on wait list documented in this encounter Plan of Treatment Upcoming Encounters Date Type Department Care Team (Late st Contact Info) Description 05/23/2024 [place] [address] Maite Malloy MD [facility] OBSTETRICS [place] [address] documented as of this encounter Visit Diagnoses Not on filedocumented in this encounter Care Teams Forms Builder Relationship Specialty Start Date End Date Valencia Adhikari APRN [address] [place] [address] PCP - General 04/21/14 07/04/23 documented as of this encounter
--- OUTSIDE RECORDS SUMMARY | 2023-10-29 04:00 | XMS_ITS | Encounter Summary ---
Author Organization [facility] Address [facility] [place] [address] Care Team Providers Care Hospitality Workers Name Role Phone Valencia Adhikari APRN Primary Care Provider [phone] Reason for Referral * Physical Therapy (Routine) - Specialty Diagnoses / Procedures Referred By Lamont riggins Referred To Contact Diagnoses Left shoulder pain, unspecified chronicity Kedar Santos MD [facility] [place] [address] Referral ID Status Reason Start Date Expiration Date V isits Requested Visits Authorized [id number] Evaluate and Treat 02/27/2017 08/26/2017 12 12 Encounter Details Date Type Department Care Team (Late st Contact Info) Description 02/27/2017 Telephone [place] [address] Lexii Martinez, RN 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 Tobacco Use Types Packs/Day [...] encounter Miscellaneous Notes * Telephone Encounter - Luz Rasmussen - 03/01/2017 3:25 PM EST Patient is scheduled * Telephone Encounter - Luz Rasmussen - 02/27/2017 11:06 AM EST Spoke with Radhika in [place] and she is checking with a Radiologst about the orders first before we can schedule. * Telephone Encounter - Lexii Martinez RN - 02/27/2017 10:45 AM EST Patient called inquiring about scheduling the injections and physical therapy order from Dr. Santos. PT order faxed to [place], [place], , the PT office of patient's choice.Message out to schedulers to reach out and schedule the injections. Patient encouraged to call the clinicif any questions/ concerns arise. documented in this encounter Plan of Treatment Upcoming Encounters Date Type Department Care Team (Late st Contact Info) Description 05/23/2024 [place] [address] Maite Malloy MD [facility] [address] [place] [address] Scheduled Referrals Name Type Priority Associated Diagnoses Orde r Schedule Referral to Physical Therapy Outpatient Referral Routine Left Shoulder Pain, Unspecified Chronicity Ordered: 02/27/2017 documented as of this encounter Visit Diagnoses Diagnosis Left shoulder pain, unspecified chronicity documented in this encounter Care Teams Hospitality Workers Relationship Specialty Start Date End Date Valencia Adhikari APRN [address] [place] [address] PCP - General 04/21/14 07/04/23 documented as of this encounter
--- OUTSIDE RECORDS SUMMARY | 2023-10-29 04:00 | XMS_ITS | Encounter Summary ---
Author Organization [facility] Address [facility] [place] [address] Care Team Providers Care Retail District Manager Name Role Phone Valencia Adhikari APRN Primary Care Provider [phone] Reason for Visit * Reason Comments Pain Management L posterior shoulder muscular pain * Consultation (Routine) - Closed Specialty Diagnoses / Procedures Referred By Contac t Referred To Contact Pain Management Diagnoses Chronic left shoulder pain Kedar Santos MD [facility] [place] [address] [facility] [address] [place] [id number] Referral ID Status Reason Start Date Expiration Date V isits Requested Visits Authorized [id number] Closed Consult, Test & Treat 05/15/2017 05/15/2018 1 1 Encounter Details Date Type Department Care Team (Late st Contact Info) Description 06/05/2017 11:30 AM EST Office Visit [place] [phone] Deacon Webster MD [facility] [place] [address] Rotator cuff tendinitis, left; Biceps tendinitis of left shoulder 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 Tobacco Use Types Packs/Day Years [...] Sign Reading Time Taken Comments Blood Pressure 110/74 06/05/2017 11:13 AM EST Pulse 86 06/05/2017 11:13 AM EST Temperature - - Respiratory Rate - - Oxygen Saturation 100% 06/05/2017 11:13 AM EST Inhaled Oxygen Concentration - - Weight 93 kg (205 lb) 06/05/2017 11:13 AM EST Height - - Body Mass Index 31.17 05/15/2017 11:15 AM EST documented in this encounter Progress Notes * Deacon Webster MD - 06/05/2017 11:30 AM EST PAIN CLINIC CONSULTATION Date of Consultation: June 05, 2017 I am seeing Ms. Hummel at the request of Kedar Santos for my opinion and recommendations regarding pain involving her left shoulder, scapula, and left arm Chief Complaint: pain involving her left shoulder, scapula, and left arm HPI: Subjective Andree Simin Hummel is a 26 y.o. 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 She was pushing a wheeled table which jammed causing her to injure her shoulder and sheis experienced pain as stated above since that time. ASSOCIATED SYMPTOMS: Weakness and decreased range of motion in the left shoulder. PAIN DESCRIPTION: Aching, sore, PRESENT: constant PAIN INCREASED BY: cold damp weather changes, over head use of her arms, fatigue PAIN DECREASED BY: Voltaren gel, lidocaine patches PAIN LEVEL: PAIN LEVEL: Presently: 5/10 At rest: 3/10 At its worst: 8/10 At its best: 2/10 Average:5/10 She participated in physical therapy at [facility] in [facility]. Her therapy had been going well however she describes an event occurring approximately one month earlierin which she heard a pop in her shoulder and her pain returned. She is currently treating her pain with Voltaren gel and lidocaine patches. She underwent MRI imaging of the left shoulder in September 2016 at [facility] which was normal. She underwent bilateral upper limb EMG/NCS neurodiagnostic evaluation on 12/01/16 which was normal. She underwent left shoulder intra-articular shoulder glenohumeral joint steroid injection performedin October 2016 with the orthopedic musk his skeletal physician with whom she initially sought treatment. She reports no improvement following this injection. This injection was not guided. She underwent left long head of biceps tendon sheath injection and left glenohumeral joint steroid injection performed [facility] which didn't provide her with some benefit. However this therapeutic benefit was lost following the incident at physical therapy in April as described in the paragraph above. She uses Flexeril and tramadol to treat her pain which exacerbated her pre- existing anxiety and shehas since stopped these medications. She has used baclofen which was non-efficacious. She receives some benefit from the Voltaren gel and the lidocaine patches uses. Her left shoulder injury has not allowed her to return to work. 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 ACTIVITY LEVEL: Patient reports pain inhibition of function as decreasing ability to participate inleisure activity and certain activities of daily living including vacuuming, cleaning, and doing dishes. Patient reports quality of life adversely affected by daily experience pain. Treatment Goals: Maintain independence of activities of daily living Improved functional level without pain inhibition of function Decreased daily experiences pain Improve quality of life OPIOID RISK ASSESSMENT OPIOID RISK TOOL Female Male 1. Family history of Substance Abuse Alcohol [x] 1 [] 3 Illegal Drugs [x] 2 [] 3 Prescription Drugs [x] 4 [] 4 2. Personal History of Substance Abuse Alcohol [x] 3 [] 3 Illegal Drugs [] 4 [] 4 Prescription Drugs [] 5 [] 5 3. Age (gianluca box if 16-45) [x] 1 [] 1 4. History of Preadolescent Sexual Abuse [] 3 [] 0 5. Psychological Disease Attention Deficit Disorder, Obsessive Compulsive D/o, Bipolar, Schizophrenia [] 2 [] 2 Depression [x] 1 [] 1 TOTAL: 12 Opioid Risk Category: High risk Total Score Risk Category: 0-3 = Low Risk 4-7 = Moderate Risk > 8 = High Risk Suicide/Homicide Risks Suicidal ideations No Suicidal plans No Homicidal ideations No Other significant history History of DUI or DWI? No History of incarceration? No History of discharge from another pain provider? No History of an inconsistent Urine Drug Screen? No Current use of a benzodiazepine? No Current use of other SOCIAL SCIENCES DEPARTMENT CHAIR depressant? No Current diagnosis of Obstructive Seep Apnea? No CPAP use: No Repeated visits to acute care facilities of other care facilities seeking opioids? No Current ? No Repeated visits to urgent care facilities and/or emergency departments seeking opioids? No Evidence or risk of significant adverse events including falls or fractures? No Are you now or in past received methadone or suboxone (buprenorphine) from a clinic? No Ever participated in drug or alcohol rehabilitation program? No Share your pain medications or accept medications from family/friends? No [place] & [place] Prescription Drug Monitoring Program data reviewed? Yes Inconsistencies? No PAST MEDICAL HISTORY: Past Medical History: Diagnosis Date ??? Anemia [...] and collapse ??? Varicella ??? Vision abnormalities PAST SURGICAL HISTORY: Past Surgical History: Procedure Laterality Date ??? COLONOSCOPY found polyps ??? PRG SOMATOSENSORY TEST, ANY/ALL PER. NERVES, TRUNK OR HEAD 03/22/2011 FACIAL NERVE MONITORING, SETUP performed by JUAN ESPARZA at [facility] MAIN OR ??? PRO THYROIDECTOMY, MALIG, LTD NECK SURG 03/22/2011 THYROIDECTOMY, FOR MALIGNANCY, LIMITED NECK DISSECTION performed by JUAN ESPARZA at [facility] MAIN OR ??? TONSILLECTOMY 2010 ??? UPPER GASTROINTESTINAL ENDOSCOPY for IBS, celiac excluded ??? WISDOM TOOTH EXTRACTION ALLERGIES: Demerol [meperidine] and Dilaudid [hydromorphone (bulk)] MEDICATIONS: Medications 06/05/17 1113 Medication Sig Taking? levothyroxine (SYNTHROID) 200 mcg Tablet take 1 tablet by mouth once daily Yes lidocaine (LIDODERM) 5 % Adhesive Patch, Medicated Apply 1 patch onto the skin daily. (leave on for12 hours and remove for 12 hours) Yes diclofenac (VOLTAREN) 1 % Gel Apply 2 g topically 4 times daily. Yes citalopram (CELEXA) 40 mg Tablet Take 40 mg by mouth daily. Yes levonorgestrel (MIRENA) 20 mcg/24 hr (5 years) IUD 1 each by Intrauterine route once. Indications: inserted 03/14/2016 Yes meclizine (ANTIVERT) 12.5 mg Tablet Take 12.5 mg by mouth 3 times daily as needed. Yes metroNIDAZOLE (FLAGYL) 500 mg Tablet take 1 tablet by mouth twice a day hydrOXYzine (ATARAX) 50 mg Tablet Take 50 mg by mouth 3 times daily as needed for Itching. FAMILY HISTORY: Family History Problem Relation Age of Onset [...] ??? Arthritis Paternal Aunt ??? Asthma Brother SOCIAL HISTORY: 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 ??? Marital status: Single Spouse name: N/A ??? Number of children: 0 ??? 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 Smoking status: Former Smoker Packs/day: 0.50 Years: 4.00 Types: Cigarettes Quit date: 10/01/2016 ??? Smokeless tobacco: Never Used ??? Alcohol use Yes Comment: Minimal ??? Drug use: Yes Special: Marijuana ??? Sexual activity: Yes Partners: Male control/ protection: IUD Comment: Cindy inserted 03/14/2016 Other Topics Concern ??? Abuse Or Threat: Help Requested By Patient No ??? Abuse Or Threat: Physical, Sexual, Verbal No ??? Sleep Concern Yes ??? Violence Concern No ??? Weight Concern Yes 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 Narrative ROS: Review of Systems Constitutional: Positive for activity change. Negative for appetite change. HENT: Negative for voice change. Eyes: Negative for discharge and itching. Respiratory: Negative for apnea and chest tightness. Cardiovascular: Negative for chest pain and leg swelling. Endocrine: Negative for cold intolerance and heat intolerance. Genitourinary: Negative for flank pain and frequency. Musculoskeletal: Positive for myalgias. Complains of left shoulder pain as per history of present illness Allergic/Immunologic: Negative for environmental allergies and food allergies. Neurological: Positive for numbness. Negative for syncope. Hematological: Negative for adenopathy. Does not bruise/bleed easily. Psychiatric/Behavioral: Negative for confusion and hallucinations. PHYSICAL EXAM: BP 110/74 Pulse 86 Wt 93 kg (205 lb) SpO2 100% BMI 31.17 kg/m2 Physical Exam Constitutional: She is oriented to person, place, and time. She appears well- developed. No distress. HENT: Head: Normocephalic and atraumatic. Mouth/Throat: No oropharyngeal exudate. Eyes: Conjunctivae and EOM are normal. Pupils are equal, round, and reactive to light. Right eye exhibits no discharge. Left eye exhibits no discharge. No scleral icterus. Neck: No JVD present. No tracheal deviation present. Cardiovascular: Normal rate and regular rhythm. Pulmonary/Chest: Effort normal and breath sounds normal. No stridor. No respiratory distress. She has no wheezes. Abdominal: Soft. Bowel sounds are normal. She exhibits no distension. Musculoskeletal: Decreased range of motion of left shoulder on abduction, extension to approximately 160??. Tenderness to palpation of the greater tubercle on the left. Tenderness to palpation of the left lateral shoulder in the long head of biceps groove. Neurological: She is alert and oriented to person, place, and time. No cranial nerve deficit. Coordination normal. Skin: Skin is warm and dry. Psychiatric: She has a normal mood and affect. Her behavior is normal. Thought content normal. RADIOLOGIC DATA: MRI of left shoulder 2017 at [facility] The results and images of this study are not available for review at the time of her consultation visit. ASSESSMENT: Assessment 1. Rotator cuff tendinitis, left 2. Biceps tendinitis of left shoulder PLAN: 26 year old female with chronic pain in her left shoulder secondary to a work- related injury sustained on 09/06/2016. On physical exam she demonstrates point tenderness at the anterior left lateral shoulder consistentwith left long head of biceps tendinitis. Additionally, she demonstrates point tenderness at the left greater tubercle consistent with left rotator cuff conjoined tendinitis. She reports having received improvement with her prior left long head of biceps ultrasound-guided tendon sheath steroid injection and left glenohumeral ultrasound-guided intra-articular steroid injection. I recommend that these injections be repeated. Recommend she return to physical therapy with an emphasis on treating tendinitis of the left rotator cuff and left long head of biceps tendinitis. Modalities to be employed include ice, massage, heat, and ultrasound. I will prescribe for her compounding pharmacy cream consisting of ketamine 10%, diclofenac 3%, gabapentin 6%, and lidocaine 5%. This should be applied to the anterior and posterior aspect of the leftshoulder. No follow-up appointment is necessary at this time. However, she may follow up with our office on an as-needed basis. documented in this encounter Plan of Treatment Upcoming Encounters Date Type Department Care Team (Late st Contact Info) Description 05/23/2024 Hospital [place] [address] Maite Malloy MD [facility] [address] [place] [address] documented as of this encounter Visit Diagnoses Diagnosis Rotator cuff tendinitis, left Biceps tendinitis of left shoulder documented in this encounter Care Teams Retail District Manager Relationship Specialty Start Date End Date Valencia Adhikari APRN [address] [place] [address] PCP - General 04/21/14 07/04/23 documented as of this encounter
--- OUTSIDE RECORDS SUMMARY | 2023-10-29 04:00 | XMS_ITS | Encounter Summary ---
Author Organization [facility] [place] [address] Care Team Providers Care System Support Administrator Name Role Phone OnofreValencia pitts Oralia SLADE Primary Care Provider [phone] Encounter Details Date Type Department Care Team (Late st Contact Info) Description 02/22/2018 Orders Only Psychiatry [place] [phone] Argelia Mccray APRN [facility] [place] [address] Depression, unspecified depression type; Anxiety 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 [...] Info) Description 05/23/2024 Hospital [place] [phone] Maite Malloy MD [facility] OBSTETRICS [place] [address] documented as of this encounter Visit Diagnoses Diagnosis Depression, unspecified depression type Anxiety Anxiety state, unspecified documented in this encounter Care Teams System Support Administrator Relationship Specialty Start Date End Date Valencia Adhikari APRN [address] [place] [address] PCP - General 04/21/14 07/04/23 documented as of this encounter
--- OUTSIDE RECORDS SUMMARY | 2023-10-29 04:00 | XMS_ITS | Encounter Summary ---
Author [facility] [place] [address] Care Team Providers Care School Photographs Detailer Name Role Phone Onofre Valencia Barton APRN Primary Care Provider [phone] [phone] Reason for Visit * Reason Onset Date Comments Medication Refill 06/27/2017 Encounter Details Date Type Department Care Team (Late st Contact Info) Description 06/27/2017 Refill [place] [phone] Yolanda Salomon RN Left shoulder pain, unspecified chronicity 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 [...] encounter Miscellaneous Notes * Telephone Encounter - Yolanda Salomon RN - 06/27/2017 3:10 PM EDT Medication Refill Request Surgery/Injury: Workers comp injury regarding her left shoulder after she tripped over something atwork. She has pain involving her left shoulder, scapula, and left arm. Original Provider: Dr. Lizandro Santos. Learning Needs Assessment done within 12 months (no change identified): Yes Medication being requested: Lidocaine 5% patch and Diclofenac 1% gel. Last refill: 05/15/17 Lidocaine #30 patch daily on 12 hours/off 12 hours. Diclofenac gel 100 g apply2 g topically 4x/day. Seen within 30 days (if no, than when): Yes, 05/15/17. Follow Up: None in ortho. She is scheduled for a left shoulder injection under fluoroscopy in the [facility] on with Dr. Altamirano. How is this medication being used currently: She is using 1/2-1 patch daily. She uses the gel from 1-4 times daily. Pain level: The meds have reduced her pain by 30-40%. Other pain medications used and how: n/a. New Prescription written for: Lidocaine #30 patch daily on 12hours and off 12 hours. Diclofenac mdn945 g apply 2 g topically 4x/day. Prescription sent electronically to [facility] by in [place], [place]. The patient knows how to contact orthopaedics if any further questions or concerns occur. documented in this encounter Plan of Treatment Upcoming Encounters Date Type Department Care Team (Late st Contact Info) Description 05/23/2024 Hospital En[place] [address] Maite Malloy MD [facility] OBSTETRICS [place] [address] documented as of this encounter Visit Diagnoses Diagnosis Left shoulder pain, unspecified chronicity documented in this encounter Care Teams School Photographs Detailer Relationship Specialty Start Date End Date Valencia Adhikari APRN [address] [place] [address] PCP - General 04/21/14 07/04/23 documented as of this encounter
--- OUTSIDE RECORDS SUMMARY | 2023-10-29 04:00 | XMS_ITS | Encounter Summary ---
Author Organization [facility] Address [facility] [place] [address] Care Team Providers Care Paediatric Surgeon Name Role Phone Valencia Adhikari BERLIN Primary Care Provider [phone] Encounter Details Date Type Department Care Team (Late st Contact Info) Description 01/28/2018 11:59 PM EDT Anesthesia Event [place] [phone] Harsha Pérez MD [facility] [place] [address] Anesthesia Record Procedure Summary Procedure Name Responsible Anesthesiologist Anesthesia Start Time Anesthesia Stop Time EGD, UPPER GI ENDOSCOPY (WRVU 2.09) (Trunk) Events No events on file. Meds * Agents No agents on file. * Blood No blood administrations on file. Lines, Drains, and Airways No LDAs on file. documented in this encounter 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 Tobacco Use Types Packs/Day Years [...] AM EDT documented as of this encounter OR Notes * Anesthesia Preprocedure Evaluation - Harsha Pérez MD - 01/28/2018 6:47 AM EDT Pre-Anesthesia Evaluation for: Andree Hummel a 27 y.o. female. Procedure(s): EGD, UPPER GI ENDOSCOPY Patient Active Problem List Diagnosis ??? Scapular dyskinesis ??? Biceps tendinitis, left ??? Chronic left shoulder pain ??? IUD (intrauterine device) in place Mirena IUD inserted 03/14/2016. ??? Intractable chronic migraine without aura ??? Left knee pain ? ? Anti-Estuardo A&B antibodies ??? Depression Past Medical History: Diagnosis Date ??? Anemia [...] Laterality Date ??? COLONOSCOPY found polyps ??? TONSILLECTOMY 2010 ??? UPPER GASTROINTESTINAL ENDOSCOPY for IBS, celiac excluded ??? WISDOM TOOTH EXTRACTION 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 Tobacco Use ??? Smoking status: Former Smoker Packs/day: 0.50 Years: 4.00 Pack years: 2.00 Types: Cigarettes Last attempt to quit: 10/01/2016 Years since quittin.3 ??? Smokeless tobacco: Never Used Substance Use Topics ??? Alcohol use: Yes Comment: socially 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 Substance and Sexual Activity Drug Use Yes ??? Types: Marijuana Comment: daily Allergies Allergen Reactions ??? Demerol [Meperidine] Anaphylaxis ??? Dilaudid [Hydromorphone (Bulk)] Hives Medications: MAR and/or home medications have been reviewed. Physical Exam: There were no vitals filed for this visit. There is no height or weight on file to calculate BMI. Anesthesia Physical Exam Anesthesia Plan: ASA 2 MAC, with a(n) intravenous induction Informed Consent: Anesthetic plan and risks discussed with patient. depression, previous thyroid surgery, combative when wakes up from anestheisa PAT Staff Note documented in this encounter Plan of Treatment Upcoming Encounters Date Type Department Care Team (Late st Contact Info) Description 05/23/2024 Hospital [place] [address] Maite Malloy MD [facility] [address] OBSTETRICS [place] [address] documented as of this encounter Visit Diagnoses Not on filedocumented in this encounter Care Teams Paediatric Surgeon Relationship Specialty Start Date End Date Valencia Adhikari APRN [address] [place] [address] PCP - General 04/21/14 07/04/23 documented as of this encounter
--- OUTSIDE RECORDS SUMMARY | 2023-10-29 04:00 | XMS_ITS | Encounter Summary ---
[place] [address] Care Team Providers Care Escort Service Attendant Name Role Phone OnofreValencia pitts BERLIN Primary Care Provider [phone] Encounter Details Date Type Department Care Team (Late st Contact Info) Description 11/16/2017 Telephone [place] [address] Lianne Rivera RN 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 Tobacco Use Types Packs/Day [...] encounter Miscellaneous Notes * Telephone Encounter - Lianne Rivera RN - 11/16/2017 3:49 PM EDT PA for celecoxib 200 mg caps submitted to patient plan via cover my meds documented in this encounter Plan of Treatment Upcoming Encounters Date Type Department Care Team (Late st Contact Info) Description 05/23/2024 [place] [address] Maite Malloy MD [facility] OBSTETRICS [place] [address] documented as of this encounter Visit Diagnoses Not on filedocumented in this encounter Care Teams Escort Service Attendant Relationship Specialty Start Date End Date Valencia Adhikari APRN [address] [place] [address] PCP - General 04/21/14 07/04/23 documented as of this encounter
--- OUTSIDE RECORDS SUMMARY | 2023-10-29 04:00 | XMS_ITS | Encounter Summary ---
Author Organization [facility] Address [facility] [place] [address] Care Team Providers Care Expense Analyst Name Role Phone Valencia Adhikari APRN Primary Care Provider [phone] Reason for Referral * Consultation (Routine) - Closed Specialty Diagnoses / Procedures Referred By Lamont riggins Referred To Contact Pain Management Diagnoses Scapular dyskinesis Alicia Oviedo APRN [facility] [place] [address] [facility] [address] [place] [address] Referral ID Status Reason Start Date Expiration Date V isits Requested Visits Authorized [id number] Closed Consult, Test & Treat 11/16/2017 11/16/2018 1 1 Reason for Visit * Reason Comments Left Shoulder Pain workers comp DOI Encounter Details Date Type Department Care Team (Late st Contact Info) Description 11/16/2017 10:20 AM EDT Office [place] [address] Alicia Oveido APRN [facility] [place] [address] Scapular dyskinesis (Primary Dx); Chronic left shoulder [...] Sign Reading Time Taken Comments Blood Pressure 121/76 11/16/2017 10:13 AM EDT Pulse 78 11/16/2017 10:13 AM EDT Temperature - - Respiratory Rate - - Oxygen Saturation - - Inhaled Oxygen Concentration - - Weight - - Height 172.7 cm (5' 8) 11/16/2017 10:13 AM EDT pt reported Body Mass Index - - documented in this encounter Progress Notes * Alicia Oviedo, EQUIPMENT SUPERINTENDENT - 11/16/2017 10:20 AM EDT Chief complaint: chronic work related LEFT shoulder pain Problem List Items Addressed This Visit Chronic left shoulder pain Scapular dyskinesis Work Related : YES DOI: 09/06/2017 History of present illness: [facility] [place] 27 y.o. year-old female is here for above. Andree continues to struggle with left shoulder pain and periscapular pain. She is engaged in physical therapy working on scapular mechanics. She finds that the intermittent use of ibuprofen andlidocaine patches are ineffective for her pain. No new injuries or falls. She remains out of work at this time. No neck pain or radiculopathy. Denies numbness or tingling in the fingers. She is reportedly healthy otherwise and here for definitive management. Past medical history: Patient Active Problem List Diagnosis Date Noted ??? Scapular dyskinesis 10/15/2017 ??? Biceps tendinitis, left 07/05/2017 ??? Chronic left shoulder pain 02/06/2017 ??? IUD (intrauterine device) in place 03/14/2016 ??? Intractable chronic migraine without aura 12/21/2015 ??? Left knee pain 04/21/2014 ? ? 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 Hypothyroidism, postsurgical s/p thyroid cancer 05/10/2011 ??? Depression 02/23/2011 Medications: ??? lamoTRIgine (LAMICTAL) 200 mg Tablet ??? busPIRone (BUSPAR) 15 mg Tablet ??? QUEtiapine (SEROQUEL) 25 mg Tablet ??? buPROPion (WELLBUTRIN XL) 150 mg Tablet Extended Release 24 hr ??? lidocaine (LIDODERM) 5 % Adhesive Patch, Medicated ??? levothyroxine (SYNTHROID) 200 mcg Tablet ??? levonorgestrel (MIRENA) 20 mcg/24 hr (5 years) IUD Allergies: Allergies Allergen Reactions ??? Demerol [Meperidine] Anaphylaxis ??? Dilaudid [Hydromorphone (Bulk)] Hives Social history: 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 Substance Use Topics ??? Smoking status: Former Smoker Packs/day: 0.50 Years: 4.00 Types: Cigarettes Quit date: 10/01/2016 ??? Smokeless tobacco: Never Used ??? Alcohol use Yes Comment: socially Review of systems: No chest pain or shortness of breath No fevers, night sweats or chills Vital signs: Temp: -- Vitals: 11/16/17 1013 BP: 121/76 Pulse: 78 Height: 172.7 cm (5' 8) There is no height or weight on file to calculate BMI. Physical Exam: 27 year-old female in no acute distress. Slightly teary eyed. Non-toxic appearing. Normocephalic Lungs/pulm: non-labored Skin: Dry and intact. No diaphoresis. LEFT shoulder exam: Posture is rounded and mildly asymmetric. There is periscapular pain and mild trigger point tenderness periscapular region. There is dyskinetic motion of her scapula yet slightly improved. No scapula winging. Andree tolerates active forward flexion to approximately 170??. External rotation to 70??. Internal rotation to T11. Rotator cuff is limited by pain therefore unreliable exam with external rotation 5-/5, she is able to hold the resistance and no external rotation lag. Internal rotation limited by pain and unreliable approximately 5-/5. Empty can 5/5. Belly press negative. Very mild impingement testing with NEER and Camargo. Skin is warm dry and well-perfused. No proximal biceps or acromioclavicular joint symptoms. Hand is sensate, well perfused, distal pulses are 2+ and equal. Imaging: No new images. Assessment: 27 y.o. year-old female with chronic work-related left shoulder pain with known scapular dyskinesis and mild secondary RTC impingement. Plan: I reviewed my findings in the office today with her clinical exam. We talked about her situation. I offered reassurance. I do recommend continued with physical therapy program for scapular dyskinesia. We can try another consult with the Pain clinic and consider trying another NSAID namely Celebrex as directed in [facility] to be is with her largest meal. As discussed, she may want to consult with the pain clinic again to see if there is alternative treatment for her nirmala-scapula pain such as trigger point injections. Referral sent. She is an established patient in the pain clinic with previousshoulder injections. She is not due for a subacromial injection for another few months. At this time, she is with very mild impingement pain and I would hold off on a subacromial injection at this time until we get to the 4 month gianluca between injections. I do not think a fluoroscopy guided injection is indicated at this time. Andree may want to consider acupuncture and TENS unit as well. She willremain out of work at this time. Once we stabilize the scapular region, she may consider work hardening exercises followed by a functional capacity evaluation. If no improvement in her situation withher chronic shoulder pain, she may need to consider a functional episcopalian program and alternate vocation. Pt agrees, questions solicited/answered, will return as scheduled and as needed for concerns or questions. Pt understands they may also call us prn for above.. Follow up: 3 months. No x-rays. Sooner prn. This plan was discussed with the patient and they are in agreement. All of the patient's questions were answered. The above dictation was made with voice recognition software documented in this encounter Plan of Treatment Upcoming Encounters Date Type Department Care Team (Late st Contact Info) Description 05/23/2024 [place] [address] Maite Malloy MD [facility] OBSTETRICS [place] [address] Scheduled Referrals Name Type Priority Associated Diagnoses Orde r Schedule Referral to Pain Clinic Outpatient Referral Routine Scapular dyskinesis Ordered: 11/16/2017 documented as of this encounter Visit Diagnoses Diagnosis Scapular dyskinesis- Primary Lack of coordination Chronic left shoulder pain Pain in joint, shoulder region documented in this encounter Care Teams Expense Analyst Relationship Specialty Start Date End Date Valencia Adhikari APRN [address] [place] [address] PCP - General 04/21/14 07/04/23 documented as of this encounter
--- OUTSIDE RECORDS SUMMARY | 2023-10-29 04:00 | XMS_ITS | Encounter Summary ---
Author Organization [facility] [place] [place] [address] Care Team Providers Care Paper Cutter Name Role Phone Valencia Adhikari APRN Primary Care Provider [phone] Reason for Visit * Reason Comments Bipolar Disorder Encounter Details Date Type Department Care Team (Late st Contact Info) Description 08/30/2017 9:00 AM EDT Office Visit Psychiatry [place] [id number] Argelia Mccray CIRCULAR HEAD SAW OPERATOR [facility] [place] [address] Anxiety; Depression, unspecified depression type 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 [...] Sign Reading Time Taken Comments Blood Pressure 123/77 08/30/2017 9:17 AM EDT Pulse 93 08/30/2017 9:17 AM EDT Temperature - - Respiratory Rate 18 08/30/2017 9:17 AM EDT Oxygen Saturation - - Inhaled Oxygen Concentration - - Weight 100.2 kg (221 lb) 08/30/2017 9:17 AM EDT Height 172.7 cm (5' 7.99) 08/30/2017 9:17 AM ED T Body Mass Index 33.61 08/30/2017 9:17 AM EDT documented in this encounter Progress Notes * Argelia Mccray, CIRCULAR HEAD SAW OPERATOR - 08/30/2017 9:00 AM EDT ESTABLISHED ADULT PATIENT OFFICE VISIT NOTE Time Spent: 10 min Attendee(s): Client Chief Complaint: Andree WallisTamara is a 27 y.o. Female presents today with continued anxiety/mood disorder (Bipolar Disorder II, Bipolar Disorder unspecified) HPI: Andree relays she had a freak out earlier this week, but instead of her being angry and it lasting for days it only lasted a few hours and she felt calm after and has felt that way for the majority of the week. Andree is surprised by this, because it is out of character for her. She continues to feel anxiety. No other questions today. Of note, the patient was tardy to the appointment and we only had 10 minutes to meet. Most recent PHQ9: PHQ9 08/16/2017 Little interest [...] Medication Sig Dispense Refill ??? lamoTRIgine (LAMICTAL) 100 mg Tablet Take 1 tablet by mouth daily for 14 days. 14 tablet 0 ??? citalopram (CELEXA) 40 mg [...] this visit. Pertinent Medication Side Effects: None reported Review of Systems: Constitutional: Casually dressed, hair pulled up into a bun, sitting comfortably in office chair Eyes: Wears corrective lenses ENT: Cardiovascular: Respiratory: No SOB or cough noted GI: : Musculoskeletal: Sore, has started to work with PT again Integumentary: Neurological: Alert and oriented Psychiatric: See HPI above Endocrine: Reports her TSH levels are high Hematologic/Lymphatic: Allergic/Immunological: Allergies Allergen Reactions ??? Demerol [Meperidine] Anaphylaxis ??? Dilaudid [Hydromorphone (Bulk)] Hives EXAM Constitutional System ? Vital Signs: Most Recent Vitals: 08/30/17 0917 BP: 123/77 Pulse: 93 Resp: 18 PainSc: 0 - No pain Musculoskeletal System ? Muscle Strength/Tone (note atrophy, abnormal movements): No atrophy or abnormal movement noted ? Gait and Station: Steady and even gait Psychiatric System ? General Appearance/Behavior: Casually dressed, wears glasses, tattoos noted, cooperative, pleasant ? Speech: Normal ? Thought Process: Linear, goal oriented ? Associations: Intact ? Abnormal Thoughts and Perceptions / Thought Content: Denies Homicidality / Violent Thoughts: Denies Suicidality: Denies Hallucinations: Denies Delusions: Denies Obsessions: Denies ? Judgment and Insight: Fair/fair ? Mood: Calm ? Affect: Mood congruent ? Orientation: A&Ox3 ? Attention/Concentration: Good/Good ? Memory: Recent and remote memory intact during interview ? Language: Normal/fluent in Tajik ? Fund of Knowledge: Appropriate Psychotherapeutic Interventions and Response: Andree continues to tolerate the increase in her Lamictal dose. We discussed that 200mg would be considered a maintenance dose and she is agreeable to increase the medication to that dose after completing her second week on 100mg. We reviewed her GeneSight results. She was interested to see what categories her previous medication trials fell into. Andree relays she has not felt any improvement on her current maximum dose of Celexa for several years. We discussed tapering her off and trialing a different antidepressant to which she was agreeable to. Andree continues to experience anxiety, which is likely if she feels Celexa has not been efficacious for it. She found that Hydroxyzine had been useful at one point in time for her anxiety, but is presently ineffective. We settled on tiraling Buspar to target her anxiety. Andree is agreeable to have blood work done. General labs as well as Vitamin D and Lamictal levels will be gathered. MEDICAL DECISION MAKING WORKING DIAGNOSIS: CHARISSE Mood disorder ( Bipolar II Disorder vs Bipolar Disorder unspecified) PLAN: 1) Continue Lamictal 100mg PO QD until 09/06- at this point will increase to 200mg PO QD 2) Decrease Celexa to 30mg PO QD until 09/07- at this point will decrease again to 20mg PO QD 3) Start Wellbutrin XL 150mg PO QAM on 09/06 4) Start Buspar 5mg PO BID for anxiety management 5) Discontinue Hydroxyzine PRN for anxiety RTC: 2 weeks RISK ASSESSMENT: Low Patient Instruction/Education provided: Patient provided verbal instructions regarding medication adjustments. Patient understands the plan? Yes documented in this encounter Plan of Treatment Upcoming Encounters Date Type Department Care Team (Late st Contact Info) Description 05/23/2024 [place] [address] Maite Malloy MD [facility] OBSTETRICS [place] [address] documented as of this encounter Procedures Procedure Name Priority Date/Time Associated Diagnosis Comments LAMOTRIGINE LVL Routine 08/30/2017 10:05 AM EDT Anxiety Depression, unspecified depression type THYROGLOBULIN ANTIBODY Routine 8 10:05 AM EDT Anxiety Depression, unspecified depression type HEMOGRAM Routine 08/30/2017 10:05 AM EDT DIFFERENTIAL, AUTOMATED Routine 08/30/2017 10:05 AM EDT VITAMIN D, 25-HYDROXY Routine 08/30/2017 10:05 AM EDT Anxiety Depression, unspecified depression type CBC (WITH DIFF) Routine 08/30/2017 10:05 AM EDT T3, FREE Routine 08/30/2017 10:05 AM EDT Anxiety Depression, unspecified depression type TSH Routine 08/30/2017 10:05 AM EDT Anxiety Depression, unspecified depression type T4, FREE Routine 08/30/2017 10:05 AM EDT Anxiety Depression, unspecified depression type T4 TOTAL Routine 08/30/2017 10:05 AM EDT Anxiety Depression, unspecified depression type COMPREHENSIVE METABOLIC PANEL (NON-FASTING) Routine 08/30/2017 10:05 AM EDT Anxiety Depression, unspecified depression type documented in this encounter Results * Differential, Automated (08/30/2017 10:05 AM EDT) Neutrophils % 63.1 % [facility] Neutr Abs (ANC) 5.14 1.70 - 6.10 x10(3)/[facility] Lymphocytes % 24.4 % [facility] Lymphocytes Abs 2.0 0.9 - 3.2 x10(3)/[facility] Monocytes % 10.0 % [facility] Monocyte Abs 0.8 0.3 - 0.9 x10(3)/[facility] Eosinophils % 1.5 % [facility] Eosinophils Abs 0.1 0.0 - 0.4 x10(3)/[facility] Basophils % 0.6 % [facility] Basophils Abs 0.0 0.0 - 0.1 x10(3)/[facility] Immature Gran % 0.40 % [facility] Comment: Immature granulocytes(IG's)percentage and absolute count will include metamyelocytes, myelocytes, and promyelocytes. Blood smears from CBCs yielding IG's will be scanned manually for concordance. If this scan disagrees with the automated IG or if promyelocytes are noted, a manual differential will be performed. Kimmy Gran Abs 0.03 0.00 - 0.04 x10(3)/[facility] Blood specimen (specimen) 08/30/2017 10:05 AM EDT 08/30/2017 10:13 AM EDT Narrative Resulting Agency Comment Spec In Lab Argelia Mccray APRN HEMATOLOGY ORDE CONCEPCION [facility] [place] [address] * (ABNORMAL) Hemogram (08/30/2017 10:05 AM EDT) WBC 8.1 4.0 - 9.5 x10(3)/[facility] RBC 3.98(L) 4.00 - 5.21 x10(6)/[facility] Hemoglobin 13.6 11.7 - 15.5 gm/dL [facility] Hematocrit 40.5 35.7 - 45.8 % [facility] MCV 101.8(H) 82.6 - 94.4 fL [facility] MCH 34.2(H) 27.1 - 32.0 pg [facility] MCHC 33.6 31.7 - 35.0 gm/dL [facility] Platelets 185 145 - 357 x10(3[place] [place] 48.9(H) 37.0 - 46.0 fL [facility] RDWCV 12.9 11.5 - 14.1 % [facility] MPV 11.6 7.6 - 12.9 [facility] nRBC % Auto 0.0 % [facility] nRBC Abs Auto 0.000 0.000 - 0.000 x10(3)/mcL [facility] Blood specimen (specimen) 08/30/2017 10:05 AM EDT 08/30/2017 10:13 AM EDT Narrative Resulting Agency Comment Spec In Lab Argelia Naranjo Shazia ABREUN HEMATOLOGY ORDE RABLES Performing Organization Address [facility]/ZIP Co de Phone Number [facility] [place] [address] * (ABNORMAL) Lamotrigine Lvl (08/30/2017 10:05 AM EDT) Lamotrigine Lvl 1.9(L) 2.5 - 15.0 mcg/mL [facility] Comment: ADDITIONAL INFORMATION This test was developed and its performance characteristics determined by [facility] in a manner consistent with CLIA requirements. This test has not been cleared or approved by the U.S. Food and Drug Administration. Test Performed by: [facility] [address] [place] [id number] Blood specimen (specimen) 08/30/2017 10:05 AM EDT 08/30/2017 1:24 PM EDT Narrative Resulting Agency Comment Spec In Lab Argelia Naranjo Shazia SLADE CHEMISTRY ORDER AMANDA Performing Organization Address City/[facility]/ZIP Co de Phone Number [facility] [place] [address] * Vitamin D, 25-Hydroxy (08/30/2017 10:05 AM EDT) 25-OH Vit D Total 33 30 - 100 ng/mL [facility] Comment: Deficient <10 ng/mL Insufficient 10 to 29 ng/mL Sufficient 30 to 100 ng/mL Potential Intoxication >100 ng/mL According to the US National Osteoporosis Foundation, Vitamin D concentrations >30 ng/mL are sufficient to protect bone health. ??The National Kidney Foundation has similarly stated that patients with Vitamin D concentrations <30ng/mL should be considered to be insufficient or deficient. http://Believe.in.3C Plus/nkf-guidelines http://Believe.in.3C Plus/nejm-VitD The IDS iSYS Vitamin D Immunoassay detects both 25-OH Vitamin D2 and 25-OH Vitamin D3, but only a total Vitamin D concentration is reported. Blood specimen (specimen) 08/30/2017 10:05 AM EDT 08/30/2017 1:29 PM EDT Narrative Resulting Agency Comment Spec In Lab Argelia Mccray APRN CHEMISTRY ORDER AMANDA [facility] [place] [address] * (ABNORMAL) Comprehensive metabolic panel (non-fasting) (08/30/2017 10:05 AM EDT) Glucose Lvl 85 65 - 199 mg/dL [facility] Comment:Diabetes: >=200 mg/d L plus symptoms BUN 7(L) 8 - 18 mg/dL [facility] Creatinine 0.68(L) 0.70 - 1.20 mg/dL [facility] Sodium 138 135 - 145 mmol/L [facility] Potassium 4.5 3.5 - 5.0 mmol/L [facility] Comment: Please note: ??Patients with WBC >100,000 may have falsely elevated Potassium levels. ??For accurate Potassium quantification in these patients send serum separator tube (gold top) for subsequent determinations. ??Contact the Clinical Chemistry Laboratory if there are any questions. Chloride 102 98 - 107 mmol/L [facility] CO2 27 22 - 31 mmol/L [facility] Anion Gap 9 5 - 15 mmol/L [facility] Calcium 8.8 8.5 - 10.5 mg/dL [facility] Total Protein 6.3 6.1 - 8.0 gm/dL [facility] Albumin 4.5 3.2 - 5.2 gm/dL [facility] AST 12 0 - 30 unit/L [facility] ALT 9 0 - 30 unit/L [facility] Alk Phos 70 40 - 104 unit/L [facility] Total Bilirubin 0.5 0.2 - 1.3 mg/dL [facility] Estimated GFR >60 >=60 [facility] Comment: The reported eGFR should be multiplied by 1.2 for patients. The MDRD is not an appropriate measure of renal function for patients with body mass extremes or in patients with acute kidney failure. http://Epizyme/DHnkdep http://Epizyme/DHMCnkf Blood specimen (specimen) 08/30/2017 10:05 AM EDT 08/30/2017 10:13 AM EDT Narrative Resulting Agency Comment Spec In Lab Argelia Levineaga CIRCULAR HEAD SAW OPERATOR CHEMISTRY ORDER AMANDA [facility] [place] [address] * (ABNORMAL) TSH (08/30/2017 10:05 AM EDT) TSH 15.40(H) 0.27 - 4.20 mlU/ML [facility] Blood specimen (specimen) 08/30/2017 10:05 AM EDT 08/30/2017 10:13 AM EDT Narrative Resulting Agency Comment Spec In Lab Argelia Naranjo Shazia CIRCULAR HEAD SAW OPERATOR CHEMISTRY ORDER AMANDA [facility] [place] [address] * Thyroglobulin Antibody (08/30/2017 10:05 AM EDT) Thyroglob Ab <20.0 0.0 - 40.0 IU/mL [facility] Comment: Assay performed is the DPC Immulite Tg-Ab immunometric assay. (Cutoff for TgAb negativity is <20 IU/ml) Blood specimen (specimen) 08/30/2017 10:05 AM EDT 08/30/2017 1:39 PM EDT Narrative Resulting Agency Comment Spec In Lab Argelia Mccray APRN CHEMISTRY ORDER AMANDA [facility] [place] [address] * T4, free (08/30/2017 10:05 AM EDT) Free T4 1.58 0.93 - 1.70 ng/dL [facility] Blood specimen (specimen) 08/30/2017 10:05 AM EDT 08/30/2017 10:13 AM EDT Narrative Resulting Agency Comment Spec In Lab Argelia Mccray APRN CHEMISTRY ORDER AMANDA Performing Organization Address City/[facility]/ZIP Co de Phone Number [facility] [place] [address] * T4 Total (08/30/2017 10:05 AM EDT) T4, total 7.4 5.1 - 10.8 mcg/dL [facility] Comment: Reference Range: Cord Blood: ??6.9-14.4 mcg/dL Females: ??7.2-14.2 mcg/dL Pediatric ranges: ??Interpret with caution-ranges have not been verified Blood specimen (specimen) 08/30/2017 10:05 AM EDT 08/30/2017 10:13 AM EDT Narrative Resulting Agency Comment Spec In Lab Argelia Mccray APRN CHEMISTRY ORDER AMANDA Performing Organization Address City/[facility]/ZIP Co de Phone Number [facility] [place] [address] * T3, free (08/30/2017 10:05 AM EDT) T3, Free 2.8 2.0 - 4.4 pg/mL [facility] Blood specimen (specimen) 08/30/2017 10:05 AM EDT 08/30/2017 10:13 AM EDT Narrative Resulting Agency Comment Spec In Lab Argelia Mccray APRN CHEMISTRY ORDER AMANDA [facility] [place] [address] documented in this encounter Visit Diagnoses Diagnosis Anxiety Anxiety state, unspecified Depression, unspecified depression type documented in this encounter Care Teams Paper Cutter Relationship Specialty Start Date End Date Valencia Adhikari APRN [address] [place] [address] PCP - General 04/21/14 07/04/23 documented as of this encounter
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
--- OUTSIDE RECORDS SUMMARY | 2023-10-29 04:00 | XMS_ITS | Encounter Summary ---
Author Organization [facility] [place] [place] [address] Care Team Providers Care Animal Rehabilitator Name Role Phone Valencia Adhikari APRN Primary Care Provider [phone] Reason for Visit * Reason Comments Follow-up Workers comp needs u pdate Encounter Details Date Type Department Care Team (Late st Contact Info) Description 10/15/2017 1:30 PM EDT Office [place] [address] Alicia Oviedo CESSPOOL CLEANER [facility] [place] [address] Chronic left shoulder pain; Scapular dyskinesis 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 Tobacco Use Types Packs/Day Years [...] Sign Reading Time Taken Comments Blood Pressure 136/75 10/15/2017 1:39 PM EDT Pulse 91 10/15/2017 1:39 PM EDT Temperature - - Respiratory Rate - - Oxygen Saturation - - Inhaled Oxygen Concentration - - Weight 97.9 kg (215 lb 12.8 oz) 10/15/2017 1:39 PM EDT shoes on, clothed Height 172.7 cm (5' 8) 10/15/2017 1:39 PM EDT pt reported Body Mass Index 32.81 10/15/2017 1:39 PM EDT documented in this encounter Progress Notes * Preet Alicia A, CESSPOOL CLEANER - 10/15/2017 1:30 PM EDT Chief complaint: work related LEFT shoulder pain. Problem List Items Addressed This Visit Chronic left shoulder pain Scapular dyskinesis History of present illness: Andree WallisTamara is a 27 y.o. year-old female who is here for above. She is doing ok. We were scheduled to see Andree in a few weeks for f/u appointment yet apparently her worker's comp advisor recommended coming in sooner. She does feel that PT is helping with strength and she is slightly less symptomatic. No instability reported. No new falls, injuries orinfections. No neck pain or radiculopathy. Past medical history: Patient Active Problem List Diagnosis Date Noted ??? Scapular dyskinesis 10/15/2017 ??? Biceps tendinitis, left 07/05/2017 ??? Chronic left shoulder pain 02/06/2017 ??? IUD (intrauterine device) in place 03/14/2016 ??? Intractable chronic migraine without aura 12/21/2015 ??? Left knee pain 04/21/2014 ? ? 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 Hypothyroidism, postsurgical s/p thyroid cancer 05/10/2011 ??? Depression 02/23/2011 Medications: ??? busPIRone (BUSPAR) 10 mg Tablet ??? [...] or chills Vital signs: Temp: -- Vitals: 10/15/17 1339 BP: 136/75 BP Location (NBP): Right arm Patient Position: Sitting BP Cuff Sizes: Adult (25-34 cm) Pulse: 91 Weight: 97.9 kg (215 lb 12.8 oz) Height: 172.7 cm (5' 8) Body mass index is 32.81 kg/(m^2). Physical Exam: 27 year-old female in no acute distress. Non-toxic appearing. Normocephalic Lungs/pulm: non-labored Skin: Dry and intact. No diaphoresis. LEFT shoulder exam: No change in scapula mechanics with dyskinetic motion of the scapula with both FF and Abduction. FF: ~ 170 degrees. ER: ~ 70 degrees. IR: ~ T11. RTC with arms at her side + painful and not reliable RTC strength testing ~ 5-/5 ER and 5/5 IR. Hand is sensate, well perfused, distalpulses are 2+ and equal. Imaging: No new images. Assessment: 27 y.o. year-old female with LEFT shoulder work related injury with scapula dyskinesia and RTC impingement. Plan: I reviewed my findings in the office today with her Clinical exam. At this time, It is too soon to declare the full effects of PT as she is just starting her dyskinesia program. It could take 3-6 months to stabilize the scapula. She may need a repeat steroid injection for the impingement painwhich we would hold on until late December for ~ 4 months between injections. 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 [facility] forms completed. Pt agrees, questions solicited/answered, will return as scheduled and as needed for concerns or questions. Pt understands they may also call us prn for above. Follow up: ~ 8 weeks. No x-rays. Sooner prn. This plan was discussed with the patient and they are in agreement. All of the patient's questions were answered. The above dictation was made with voice recognition software documented in this encounter Plan of Treatment Upcoming Encounters Date Type Department Care Team (Late st Contact Info) Description 05/23/2024 [place] [address] Maite Malloy MD [facility] [address] OBST[place] [address] documented as of this encounter Visit Diagnoses Diagnosis Chronic left shoulder pain Pain in joint, shoulder region Scapular dyskinesis Lack of coordination documented in this encounter Care Teams Animal Rehabilitator Relationship Specialty Start Date End Date Valencia Adhikari APRN [address] [place] [address] PCP - General 04/21/14 07/04/23 documented as of this encounter
--- OUTSIDE RECORDS SUMMARY | 2023-10-29 04:00 | XMS_ITS | Encounter Summary ---
Author Organization [facility] [place] [address] Care Team Providers Care Creative Producer Name Role Phone Valencia Adhikari APRN Primary Care Provider [phone] Reason for Visit * Reason Onset Date Comments Other 02/15/2017 Encounter Details Date Type Department Care Team (Late st Contact Info) Description 02/15/2017 [place] [id number] Isaac Osorio MD [facility] [place] [address] Other 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 Tobacco Use Types Packs/Day [...] encounter Miscellaneous Notes * Telephone Encounter - Inocencia Beasley RN - 02/22/2017 11:19 AM EST Images from the original note were not included. Isaac Osorio MD Muir, Carmen A, RN ? Caller: Unspecified (1 week ago, 12:45 PM) ? Discussed results with Joceline. There is some WM changes in the right frontal area likely of no clinical significance. * Telephone Encounter - Lianna Underowod - 02/21/2017 3:06 PM EST Joceline calling back as she has not heard from Dr. Osorio. Please call to discuss. * Telephone Encounter - Jeanette Doss - 02/15/2017 12:46 PM EDT Caller: Joceline If not Pt / Relation to pt: [facility] Best time to reach caller: Anytime at Dr Osorio's convenience Before 2:30pm - Informed caller that nurse will call back by the end of the day Best number to reach caller: [phone] Reason for call: Joceline from [facility] called. She would like to speak with Dr Osorioregarding the MRI patient had done [facility] on 02/09/2017 documented in this encounter Plan of Treatment Upcoming Encounters Date Type Department Care Team (Late st Contact Info) Description 05/23/2024 [place] [address] Maite Malloy MD [facility] OBSTETRICS [place] [address] documented as of this encounter Visit Diagnoses Not on filedocumented in this encounter Care Teams Creative Producer Relationship Specialty Start Date End Date Valencia Adhikari APRN [address] [place] [address] PCP - General 04/21/14 07/04/23 documented as of this encounter
--- OUTSIDE RECORDS SUMMARY | 2023-10-29 04:00 | XMS_ITS | Encounter Summary ---
Author Organization [facility] [place] [address] Care Team Providers Care City Mail Carrier Name Role Phone OnofreValencia pitts Oralia SLADE Primary Care Provider [phone] Encounter Details Date Type Department Care Team (Late st Contact Info) Description 08/24/2017 Orders Only Psychiatry [place] [phone] Argelia Mccray APRN [facility] [place] [address] Depression, unspecified depression type 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 Tobacco [...] Description 05/23/2024 [place] [phone] Maite Malloy MD [facility] OBSTETRICS [place] [address] documented as of this encounter Visit Diagnoses Diagnosis Depression, unspecified depression type documented in this encounter Care Teams City Mail Carrier Relationship Specialty Start Date End Date Valencia Adhikari APRN [address] [place] [address] PCP - General 04/21/14 07/04/23 documented as of this encounter
--- OUTSIDE RECORDS SUMMARY | 2023-10-29 04:00 | XMS_ITS | Encounter Summary ---
[place] [address] Care Team Providers Care Highway Painter Helper Name Role Phone Valencia Adhikari APRN Primary Care Provider [phone] Reason for Referral * Surgical (Routine) - Specialty Diagnoses / Procedures Referred By Contac t Referred To Contact Diagnoses Chronic left shoulder pain Procedures Injection tendon or ligament Kiah Alvarez V [facility] [place] [address] Referral ID Status Reason Start Date Expiration Date V isits Requested Visits Authorized [id number] Consult, Test & Treat 07/05/2017 07/05/2018 1 1 * Surgical (Routine) - Specialty Diagnoses / Procedures Referred By Contac t Referred To Contact Diagnoses Biceps tendinitis, left Procedures Bursa Inject - Major (Shoulder,hip,knee) Kiah Alvarez V [facility] [place] [address] Referral ID Status Reason Start Date Expiration Date V isits Requested Visits Authorized [id number] Consult, Test & Treat 07/05/2017 07/05/2018 1 1 Reason for Visit * Reason Comments Shoulder Pain left * Surgical (Routine) - Specialty Diagnoses / Procedures Referred By Contac t Referred To Contact Pain Management Diagnoses Other shoulder lesions, left shoulder Bicipital tendinitis, left shoulder L LONGHEAD OF BICEPS TENDON SHEATH STEROID INJ & L GLENOHUMERAL STEROID INJ- US GUIDED Procedures PRO DRAIN/INJECT LARGE JOINT/BURSA PRG SONO GUIDE NEEDLE BIOPSY PROCEDURE 1 Valencia Adhikari APRN [address] [place] [address] Kiah Alvarez V [facility] [place] [address] Referral ID Status Reason Start Date Expiration Date V isits Requested Visits Authorized [id number] 07/05/2017 07/05/2018 1 1 Encounter Details Date Type Department Care Team (Latest Contact Info) Description 07/05/2017 8:30 AM EDT Procedure [place] [address] Kiah Alvarez V [facility] [place] [address] Chronic left shoulder pain; Biceps tendinitis, left 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 Tobacco Use Types Packs/Day Years [...] Sign Reading Time Taken Comments Blood Pressure 113/67 07/05/2017 9:03 AM EDT Pulse 90 07/05/2017 9:03 AM EDT Temperature - - Respiratory Rate - - Oxygen Saturation 96% 07/05/2017 9:03 AM EDT Inhaled Oxygen Concentration - - Weight 86.2 kg (190 lb) 07/05/2017 8:42 AM EDT Height 172.7 cm (5' 8) 07/05/2017 8:42 AM EDT Body Mass Index 28.89 07/05/2017 8:42 AM EDT documented in this encounter Patient Instructions * Patient Instructions* Ella Cintron LPN - 07/05/2017 8:30 AM EDT Pain Management Center Discharge Instructions: You were seen by Dr. Kiah Alvarez DO and Carmen Winkler MD who performed left biceps tendon steroid injection & left glenohumeral steroid injection. It is normal that the injection site will be sore for up to 48 hours. You may also experience mild stiffness in the joint near the injection site. [x] You may resume your normal activities: tomorrow. You may shower today. DO NOT tub bathe, use whirlpools, hot tubs or pool therapy for 2 days. RemoveBand-Aid(s) later today/tomorrow. Do not drive until tomorrow. Use caution walking/climbing stairs as you may be unsteady on your feet. You may use your usual medications, including pain medications, as directed, unless otherwise instructed. You may use an ice pack as needed for the first 24 hours, on for 20 minutes then off for 20 minutes. Do not apply heat today. Attempt to empty your bladder 4-6 hours after your procedure. You received the following medications: Depo-Medrol 80 mg, Lidocaine and Omnipaque (contrast dye). During regular business hours, please phone the Pain Management Center at with any questions or if the following or other troubling symptoms develop: 1) Prolonged dizziness or weakness (more than 1 day). 2) Localized swelling, redness or drainage at the injection site(s). 3) Temperature of 101 degrees that lasts for more than 4 hours. After 5 PM or on weekends, call and ask for Pain Clinic provider on-call. If you are unable to reach the Pain Management Center and have a complication, please call your Primary Care Provider or proceed to your local emergency department. Ella Cintron LPN documented in this encounter Progress Notes * Ella Cintron LPN - 07/05/2017 8:30 AM EDT Pre-Procedure Screening Questions: 1. Status: No 2. Patient states they have a driver sales to transport after procedure? Yes 3. Patient taking antibiotics at present? No 4. NPO per Pain Management Center protocol? No 5. Patient diabetic: No 6. Patient routinely taking anticoagulants ? No Patient Vital Signs documented in Doc Flowsheets associated with this encounter. Patient Discharge Instructions were reviewed with patient and copy provided to patient. * Kiah Alvarez DO - 07/05/2017 8:30 AM EDT PREPROCEDURE HISTORY AND PHYSICAL Date of Visit: July 05, 2017 Ms. Hummel presents for a left glenohumeral joint injection and a left biceps tendon are injection. Chief Complaint: Left shoulder pain HPI: Subjective Andree Hummel is a 27 y.o. female who presents today for a left glenohumeral joint injection and a leftbiceps tendon are injection with a diagnosis of No diagnosis found. with symptomsof Left shoulder pain. The history is obtained from the patient, and I have reviewed medical records provided by the referring physician and located in the electronic medical record to fill in gaps in the patient's recollection of events, treatments and outcomes. LOCATION: Left shoulder pain. PAIN LEVEL AT REST 10 PAST MEDICAL HISTORY: Past Medical History: Diagnosis [...] and collapse ??? Varicella ??? Vision abnormalities There are no medical history contraindications to this procedure. PAST SURGICAL HISTORY: Past Surgical History: Procedure Laterality Date ??? COLONOSCOPY found polyps ??? PRG SOMATOSENSORY TEST, ANY/ALL PER. NERVES, TRUNK OR HEAD 03/22/2011 FACIAL NERVE MONITORING, SETUP performed by JUAN ESPARZA at [facility] MAIN OR ??? PRO THYROIDECTOMY, IVA STAFFORD NECK SURG 03/22/2011 THYROIDECTOMY, FOR MALIGNANCY, LIMITED NECK DISSECTION performed by JUAN ESPARZA at [facility] MAIN OR ??? TONSILLECTOMY 2010 ??? UPPER GASTROINTESTINAL ENDOSCOPY for IBS, celiac excluded ??? WISDOM TOOTH EXTRACTION There are no past surgical contraindications to this procedure ALLERGIES: Demerol [meperidine] and Dilaudid [hydromorphone (bulk)] There are no allergic contraindications to this procedure. MEDICATIONS: Medications 07/05/17 0843 Medication Sig Taking? lidocaine (LIDODERM) 5 % Adhesive Patch, Medicated Apply 1 patch onto the skin daily. (leave on for12 hours and remove for 12 hours) Yes diclofenac (VOLTAREN) 1 % Gel Apply 2 g topically 4 times daily. Yes levothyroxine (SYNTHROID) 200 mcg Tablet take 1 tablet by mouth once daily Yes citalopram (CELEXA) 40 mg Tablet Take 40 mg by mouth daily. Yes hydrOXYzine (ATARAX) 50 mg Tablet Take 50 mg by mouth 3 times daily as needed for Itching. Yes levonorgestrel (MIRENA) 20 mcg/24 hr (5 years) IUD 1 each by Intrauterine route once. Indications: inserted 03/14/2016 Yes meclizine (ANTIVERT) 12.5 mg Tablet Take 12.5 mg by mouth 3 times daily as needed. Yes There are no medication contraindications to this procedure. 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 Smoking status: Former Smoker Packs/day: 0.50 Years: 4.00 Types: Cigarettes Quit date: 10/01/2016 ??? Smokeless tobacco: Never Used ??? Alcohol use Yes Comment: Minimal ??? Drug use: Yes Special: Marijuana ??? Sexual activity: Yes Partners: Male control/ protection: IUD Comment: Mirena inserted 03/14/2016 Other Topics Concern ??? Abuse Or Threat: Help Requested By Patient No ??? Abuse Or Threat: Physical, Sexual, Verbal No ??? Sleep Concern Yes ??? Violence Concern No ??? Weight Concern Yes 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 Narrative There are no social history contraindications to this procedure. ROS: Review of Systems Constitutional: Negative for fever, chills, or recent infection. Respiratory: Negative for shortness of breath. Cardiovascular: Negative for chest pain. Musculoskeletal: Positive for Left shoulder pain. Psychiatric/Behavioral: Negative for agitation and behavioral problems. PHYSICAL EXAM: BP 113/67 Pulse 90 Ht 172.7 cm (5' 8) Wt 86.2 kg (190 lb) SpO2 96% BMI 28.89 kg/m2 Physical Exam Constitutional: She appears well-developed and well-nourished. No distress. Cardiovascular: Normal heart rate. Pulmonary/Chest: Effort normal and breath sounds normal. Skin: She is not diaphoretic. This is no rash, apparent infection, or other abnormality to the areaof the proposed injection. There are no physical examination findings which would preclude this procedure. ASSESSMENT: No diagnosis found. PLAN: Proceed with procedure as planned. Thank you for the opportunity to participate in Andree Hummel's care. Please feel free to contact me with any questions. Sincerely, KIAH ALVAREZ DO, MPH Skin Specialist of Anesthesiology/[employer] [facility] [employer] [facility] Gas Substation Operator, Pain Medicine Fellowship ABPM&R - Subspecialty board certification in Pain Medicine FLUOROSCOPICALLY GUIDED left GLENOHUMERAL JOINT INJECTION PROCEDURE NOTE Date of Service: 07/05/2017 Patient: Andree Hummel Provider: KIAH ALVAREZ DO, MPH COMMENTS: She has had this X 2 with good results. Andree Hummel has been referred to the Pain Management Center for intra-articular left Glenohumeral joint injection. Ms. Hummel was interviewed and the medical record reviewed. There were no medical, pharmacologic, radiographic or other structural contraindications to attempting fluoroscopically guidedintra-articular left shoulder joint injection. Risks and potential side effects as well as potential benefit of the procedure were reviewed with Andree Hummel, and her voiced concerns were addressed. After I believed that the patient was completely informed, the printed consent form was signed. Standard time-out procedure was performed. Ms. Hummel was placed in the supine position on the fluoroscopy table and automated blood pressure cuff and pulse oximeter applied. The skin entry point for approaching anterior aspect of the left humeral head was identified under the most advantageous fluoroscopic view and marked. Following thorough Chlorhexadine preparation of the skin and draping, 1% lidocaine infiltration of the skin entry point and subcutaneous tissues was accomplished using a 1.5 25G needle. Next, a 3.5 22Gneedle was inserted and advanced posteriorly toward the medial border of the humeral head under fluoroscopic guidance. The needle was stopped on bone. Intra-articular placement was confirmed by a clear arthrogram resulting from the injection 3 ml Omnipaque 240. Next, 10 cc of A mixture of 1 cc of Depomedral (40 mg/cc) mixed with 9 cc of 0.5% Bupivacaine was injected into the joint. Next, 20 cc of1% Lidocaine was injected into the joint. The endpoint of capsular dilatation was reached about about cc of fluid. The patient tolerated the procedure well and the needle was removed. The insertion site was cleaned and a bandage was placed. she was noted to have improved range of motion to the glenohumeral joint after the procedure. Ms. Hummel's vital signs were stable throughout the procedure and were as recorded in the docflowsheet by the nursing staff. If given, dosages of intravenous drugs for anxiolysis and analgesia were documented in MAR. Follow up plans and appointments were discussed with the Ms. Samantha Mcdonald. Post procedure instruction was given as documented in nursing documentation and having met discharge criteria, she was discharged from the Pain Management Center. COMMENTS: No complications. F/U with our office as needed. I was the attending physician supervising the resident in the above care and I was present with theresident for the entire procedure. Kiah Alvarez DO, MPH Attending Physician CC: Valencia Adhikari APRN [address] [place] [address] documented in this encounter Procedure Notes * Kiah Alvarez DO - 07/05/2017 8:30 AM EDTAssociated Order(s): ARTHROCENTESIS,DRAIN/INJECT JOINT/BURSA Pre-Procedure Diagnose(s): Biceps tendinitis, left ULTRASOUND-GUIDED left LONG HEAD OF THE BICEPS TENDON AREA INJECTION PROCEDURE NOTE The patient complains of left shoulder pain. Dx: Bicipital tendinosis Ms. Hummel was greeted by the nurse who verified patient's name and . Ms. Hummel was interviewed and the medical record reviewed. There were no medical, pharmacologic, radiographic, or other structural contraindications to attempting ultrasound-guided leftlong head of the biceps tendon area injection. Risks and potential side effects were discussed. The potential benefits of the procedure were reviewed with Ms. Hummel and her voiced concerns were addressed. After obtaining informed consent, the patient consent form was signed. Standard time-out procedure was performed. Ms. Hummel was placed in the modified Krase position on the examination table. The skin entry point for entering/approaching the left biceps tendon (long head) was marked using ultrasound gudance. The skin was thoroughly prepared with chlorhexadine preparation. The long head of the biceps tendon was easily found in the bicipital groove using ultrasound guidance. Next, point anesthesia was obtained by injecting 1% Lidocaine. Next, I entered the skin using a lateral to medial approach in an in-plane approach with a 1.5 25 G skin needle. The needle was directed towards the floor ofthe bicipital groove. I then injected 2 ccs of 1% Lidocaine without resistance. The produced hydrodisection in the bicipital groove outlining the tendon of the long head of the biceps muscle. I then injected 1 cc of Depomedrol (40 mg/cc). The needle was then flushed with 1 cc of 1% Lidocaine. The needle was then removed without difficulty. Post-procedure plan: Days 0-7: Avoid lifting with this arm. Avoid NSAIDs, and Aspirin Days 8-21: Progress to full active range of motion. Acoid NSAIDs and ice. Begin physical therapy. Days 22-42: Progress to rotator cuff strengthening. Avoid NSAIDs and ice. Continue physical therapy. Follow up plans and appointments were discussed with Ms. Hummel. Post procedure instruction was given. Having met discharge criteria she was discharged from the Pain Management Center. I was the attending physician supervising the resident in the above care and I was present with theresident for the entire procedure. KIAH ALVAREZ DO, MPH Skin Specialist of Anesthesiology/[facility] [facility] [employer] [facility] Gas Substation Operator, Pain Medicine Fellowship ABPM&R - Subspecialty board certification in Pain Medicine CC: Valencia Adhikari APRN [address] [place] [id number] documented in this encounter Plan of Treatment Upcoming Encounters Date Type Department Care Team (Late st Contact Info) Description 05/23/2024 Hospital [place] [address] Maite Malloy MD [facility] OBSTETR[facility] [place] [address] Scheduled Orders Name Type Priority Associated Diagnoses Orde r Schedule Injection tendon or ligament Procedures Routine Chronic left shoulder pain Ordered: 07/05/2017 documented as of this encounter Procedures Procedure Name Priority Date/Time Associated Diagnosis Comments ARTHROCENTESIS,SUZETTE N/INJECT JOINT/BURSA Routine 07/05/2017 10:07 AM EDT Biceps tendinitis, left documented in this encounter Results * Bursa Inject - Major (Shoulder,hip,knee) (07/05/2017 10:07 AM EDT) Narrative Kiah Alvarez DO - 07/05/2017 10:07 AM EDT Kiah Alvarez DO ? 07/05/2017 10:07 AM ULTRASOUND-GUIDED left LONG HEAD OF THE BICEPS TENDON AREA INJECTION PROCEDURE NOTE The patient complains of left shoulder pain. Dx: Bicipital tendinosis Ms. Hummel was greeted by the nurse who verified patient's name and . ?? Ms. Hummel was interviewed and the medical record reviewed. ??There were no medical, pharmacologic, radiographic, or other structural contraindications to attempting ultrasound-guided left long head of the biceps tendon area injection. Risks and potential side effects were discussed. ??The potential benefits of the procedure were reviewed with Ms. Hummel and her voiced concerns were addressed. ?? After obtaining informed consent, the patient consent form was signed. ??Standard time-out procedure was performed. Ms. Hummel was placed in the modified Krase position on the examination table. ??The skin entry point for entering/approaching the left biceps tendon (long head) was marked using ultrasound gudance. ??The skin was thoroughly prepared with chlorhexadine preparation. ??The long head of the biceps tendon was easily found in the bicipital groove using ultrasound guidance. Next, point anesthesia was obtained by injecting 1% Lidocaine. Next, I entered the skin using a lateral to medial approach in an in-plane approach with a 1.5 25 G skin needle. ??The needle was directed towards the floor of the bicipital groove. ??I then injected 2 ccs of 1% Lidocaine without resistance. ??The produced hydrodisection in the bicipital groove outlining the tendon of the long head of the biceps muscle. ??I then injected 1 cc of Depomedrol (40 mg/cc). ??The needle was then flushed with 1 cc of 1% Lidocaine. ??The needle was then removed without difficulty. ?? Post-procedure plan: Days 0-7: Avoid lifting with this arm. ??Avoid NSAIDs, and Aspirin Days 8-21: Progress to full active range of motion. ??Acoid NSAIDs and ice. ??Begin physical therapy. Days 22-42: Progress to rotator cuff strengthening. ??Avoid NSAIDs and ice. ??Continue physical therapy. Follow up plans and appointments were discussed with Ms. Hummel. ??Post procedure instruction was given. ?? Having met discharge criteria she was discharged from the Pain Management Center. I was the attending physician supervising the resident in the above care and I was present with the resident for the entire procedure. KIAH ALVAREZ DO, MPH Skin Specialist of Anesthesiology/[facility] [facility] [employer] [facility] Gas Substation Operator, Pain Medicine Fellowship ABPM&R - Subspecialty board certification in Pain Medicine CC: Valencia Adhikari APRN [address] [place] [address] Kiah Jimenez DO PROCEDURE/MINOR SURG ICAL ORDERABLES documented in this encounter Visit Diagnoses Diagnosis Chronic left shoulder pain Pain in joint, shoulder region Biceps tendinitis, left documented in this encounter Administered Medications Inactive Administered Medications - up to 3 most recent administrations Medication Order MAR Action Action Date Dose Rate Site lidocaine (PF) (XYLOCAINE) 10 mg/mL (1 %) injection 40 mg 40 mg, INTRABURSAL, ONCE, 1 dose, On Sherrie 07/05/17 at 1030, 26 mL Wasted, Routine Given 07/05/2017 10:30 AM EDT 40 mg methylPREDNISolone acetate (DEPO-Medrol) injection 40 mg 40 mg, Intra-articular, ONCE, 1 dose, On Sherrie 07/05/17 at 1030, Routine Given 07/05/2017 10:30 AM EDT 40 mg methylPREDNISolone acetate (DEPO-Medrol) injection 40 mg 40 mg, Intra-Lesional, ONCE, 1 dose, On Sherrie 18 at 1030, Routine Given 07/05/2017 10:30 AM EDT 40 mg documented in this encounter Care Teams Highway Painter Helper Relationship Specialty Start Date End Date Valencia Adhikari APRN [address] [place] [address] PCP - General 04/21/14 07/04/23 documented as of this encounter
--- OUTSIDE RECORDS SUMMARY | 2023-10-29 04:00 | XMS_ITS | Encounter Summary ---
Author Organization [facility] [place] [address] Care Team Providers Care Neck Cutter Name Role Phone OnofreMarilynValencia Oralia SLADE Primary Care Provider [phone] Reason for Visit * Reason Onset Date Comments Medication Refill 09/13/2017 Encounter Details Date Type Department Care Team (Late st Contact Info) Description 09/13/2017 Refill Psychiatry [place] [phone] Argelia Mccray APRN [facility] [place] [address] Depression, unspecified depression type 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 Tobacco [...] Contact Info) Description 05/23/2024 Hospital [place] [phone] Maite Malloy MD [facility] [place] [address] documented as of this encounter Visit Diagnoses Diagnosis Depression, unspecified depression type documented in this encounter Care Teams Neck Cutter Relationship Specialty Start Date End Date Valencia Adhikari APRN [address] [place] [address] PCP - General 04/21/14 07/04/23 documented as of this encounter
--- OUTSIDE RECORDS SUMMARY | 2023-10-29 04:00 | XMS_ITS | Encounter Summary ---
Author Organization [facility] [place] [address] Care Team Providers Care Boring And Filling Machine Operator Name Role Phone Valencia Adhikari APRN Primary Care Provider [phone] Encounter Details Date Type Department Care Team (Late st Contact Info) Description 03/21/2018 10:00 AM EST Office Visit Psychiatry [place] [address] Argelia Mccray PHYS ASSISTANT [facility] [address] Anxiety 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 Tobacco Use Types Packs/Day [...] Progress Notes * Argelia Mccray APRN - 03/21/2018 10:00 AM EST ESTABLISHED ADULT PATIENT OFFICE VISIT NOTE Time Spent: 25min Attendee(s): Client only HISTORY Chief Complaint: Andree Hummel is a 27 y.o. 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 GAD7 Questionnaires Data: last 4 values of anxiety scores CHARISSE-7 Questionnaire Score Only 11/08/2017 12/13/2017 02/21/2018 03/21/2018 CHARISSE-7 Score (Patient) 20 (Severe Anxiety) 16 (Severe Anxiety) 18 (Severe Anxiety) 18 (Severe Anxiety) Current Medications: Current Outpatient Medications Medication Sig Dispense Refill ??? celecoxib (CELEBREX) [...] capsule by mouth daily. 30capsule 3 ??? LORazepam (ATIVAN) 0.5 mg Tablet Take 1 tablet by mouth 2 times daily as needed for Anxiety. 60tablet 0 ??? buPROPion (WELLBUTRIN XL) 150 mg Tablet Extended Release 24 hr Take 1 tablet by mouth every morning. 30 tablet 3 ??? lamoTRIgine (LAMICTAL) 150 mg Tablet Take 1.5 tablets by mouth daily. 45 tablet 3 ??? QUEtiapine (SEROQUEL) 25 mg Tablet Take 1 tablet by mouth nightly as needed (For sleep). 30 tablet 0 ??? levothyroxine (SYNTHROID) 200 mcg Tablet take [...] and normal rhythm ?? Language: fluent in divehi ?? Mood: Anxious ?? Affect: mood-congruent and [...] process and receptive to care. Andree has been doing well on the current regimen of medications and has noted no side effects since starting the Effexor. We have since discontinued both the Buspar and Wellbutrin. The Buspar did not appear to be efficacious and Andree was concerned she would not be able to remember to take the medication multiple times during the day. The Wellbutrin was likely not a beneficial medication for her anxiety. Andree also notes that she does not take the Seroquel, so we were in agreement on discontinuing that medication as well. She continues to use the Ativan as prescribed. We will not make any medication changes today. We discussed the benefit of seeking outpatient therapy now that she has time during the day to address additional stressors in her life. Andree was in agreement with this. We reviewed the resource [employer] and this singer songwriter will plan to send the client some options. MEDICAL DECISION MAKING WORKING DIAGNOSIS Anxiety disorder unspecified Depressive disorder/Mood disorder DDx: Bipolar disorder CURRENT ASSESSMENT: 27 year old with hypothyroidism, intractable chronic migraine, and mood disorder who continues to be seen at [facility] for medication management. Today, Andree's anxiety appears to be stable on the current regimen of medications. She has not illustrated any manic symptoms since beinginitiated on Effexor, so we will continue with the course and dose. The client continues to struggle with some past issues and would benefit from seeing an outpatient therapist, which she was receptive to. PLAN: 1) Continue Venlafaxine, Ativan, and Lamictal as prescribed 2) Discontinue Wellbutrin, Buspar, and Seroquel 3) Research on [employer]- for outpatient therapy 4) Psychopharmacology follow-up in two weeks SAFETY RISK ASSESSMENT Enduring Factors: history of [...] abuse) or ifrecords are subpoenaed by a administrative judge. We also discussed that notes can be read by other clinicians andstaff involved in the patient's care. Argelia Mccray APRN 03/21/2018 documented in this encounter Plan of Treatment Upcoming Encounters Date Type Department Care Team (Late st Contact Info) Description 05/23/2024 Hospital [place] [phone] Maite Malloy MD [facility] DR OBSTETRICS [place] [address] documented as of this encounter Visit Diagnoses Diagnosis Anxiety Anxiety state, unspecified documented in this encounter Care Teams Boring And Filling Machine Operator Relationship Specialty Start Date End Date Valencia Adhikari APRN [address] [place] [address] PCP - General 04/21/14 07/04/23 documented as of this encounter
--- OUTSIDE RECORDS SUMMARY | 2023-10-29 04:00 | XMS_ITS | Encounter Summary ---
Author Organization [facility] [place] [place] [address] Care Team Providers Care Patternmaker Sample Name Role Phone OnofreValencia pitts Oralia SLADE Primary Care Provider [phone] Encounter Details Date Type Department Care Team (Late st Contact Info) Description 09/05/2017 Orders Only Psychiatry [place] [phone] Argelia Mccray APRN [facility] [place] [address] Depression, unspecified depression type 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 Tobacco [...] Contact Info) Description 05/23/2024 [place] [phone] Maite Malloy MD [facility] OBSTETRICS [place] [address] documented as of this encounter Visit Diagnoses Diagnosis Depression, unspecified depression type documented in this encounter Care Teams Patternmaker Sample Relationship Specialty Start Date End Date Valencia Adhikari APRN [address] [place] [address] PCP - General 04/21/14 07/04/23 documented as of this encounter
--- OUTSIDE RECORDS SUMMARY | 2023-10-29 04:01 | XMS_ITS | Encounter Summary ---
Author Organization [facility] [place] [address] Care Team Providers Care Cardroom Drawing Runner Name Role Phone Valencia Adhikari APRN Primary Care Provider [phone] Reason for Visit * Reason Comments Other Encounter Details Date Type Department Care Team (Late st Contact Info) Description 04/01/2015 Telephone Obstetrics [place] [phone] Pam Chaidez AEROSPACE PROJECT ENGINEER [facility] OBSTETRICS [place] [address] 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 Tobacco Use Types Packs/Day Years Used Date Smoking Tobacco: Some Days Cigarettes Started: 03/14/2008; Last attempted to quit: 03/14/2012 Smokeless Tobacco: Never Alcohol Use Standard Drinks/Week Comments Yes 0 (1 standard drink = 0.6 oz pur e alcohol) socially Sex and Gender Information Value Date Recorded Sex Assigned at Female 10/12/2023 9:44 AM EDT Gender Identity Female 10/12/2023 9:44 AM EDT Sexual Orientation Straight 10/12/2023 9: 44 AM EDT documented as of this encounter Miscellaneous Notes * Telephone Encounter - Pam Chaidez APRN - 04/01/2015 1:43 PM EST Called Andree and relayed negative hCG results (<1). Also reviewed normal prolactin levels. Advised her to call the clinic if discharge persisted, became a color, or breast pain developed. Reviewed these findings with Dr. So who agrees. Told Andree she can start the nuva ring today and touse a back-up x 1 week as discussed. Asked her to clal with any other questions or concerns. PAM CHAIDEZ APRN 04/01/2015 documented in this encounter Plan of Treatment Upcoming Encounters Date Type Department Care Team (Late st Contact Info) Description 05/23/2024 Hospital [place] [address] Maite Malloy MD [facility] OBSTETRICS [place] [address] documented as of this encounter Visit Diagnoses Not on filedocumented in this encounter Care Teams Cardroom Drawing Runner Relationship Specialty Start Date End Date Valencia Adhikari, AEROSPACE PROJECT ENGINEER [address] [place] [address] PCP - General 04/21/14 07/04/23 documented as of this encounter
--- OUTSIDE RECORDS SUMMARY | 2023-10-29 04:01 | XMS_ITS | Encounter Summary ---
Author Organization [facility] Address [facility] [place] [address] Care Team Providers Care Fly Finisher Name Role Phone Jason Gomez APRN Primary Care Provider [phone] Reason for Visit * Reason Comments Headache Dizziness * Consultation (Routine) - Closed Specialty Diagnoses / Procedures Referred By Contac t Referred To Contact Neurology Diagnoses headaches Jason Gomez APRN [address] [place] [address] [facility] Neu[facility] [address] [place] [phone] Referral ID Status Reason Start Date Expiration Date V isits Requested Visits Authorized [id number] Closed Consult, [facility] 12/13/2015 12/12/2016 1 1 Encounter Details Date Type Department Care Team (Late st Contact Info) Description 12/21/2015 8:30 AM EDT [place] [phone] Neo Pleitez MD [facility] [place] [address] Evelyn Pelayo MD [address] [place] [id number] Migraine with vertigo; Intractable chronic migraine without aura and without status migrainosus 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 Tobacco Use Types Packs/Day Years Used Date Smoking Tobacco: Some Days Cigarettes 0.5 4 Started: 03/14/2008; Last attempted to quit: 03/14/2012 Smokeless Tobacco: Never Alcohol Use Standard Drinks/Week Comments No 0 (1 standard drink = 0.6 oz pur e alcohol) Sex and Gender Information Value Date Recorded Sex Assigned at Female 10/12/2023 9:44 AM EDT Gender Identity Female 10/12/2023 9:44 AM EDT Sexual Orientation Straight 10/12/2023 9: 44 AM EDT documented as of this encounter Last Filed Vital Signs Vital Sign Reading Time Taken Comments Blood Pressure 109/65 12/21/2015 8:32 AM EDT Pulse 80 12/21/2015 8:32 AM EDT Temperature - - Respiratory Rate - - Oxygen Saturation - - Inhaled Oxygen Concentration - - Weight 85.7 kg (189 lb) 12/21/2015 8:32 AM EDT Height 175.3 cm (5' 9) 12/21/2015 8:32 AM EDT r eported Body Mass Index 27.91 12/21/2015 8:32 AM EDT documented in this encounter Patient Instructions * Patient Instructions* Evelyn Pelayo MD - 12/21/2015 8:30 AM EDT Clinic nurse number for most issues and prescription refills: (Ivan) (Smita) (Genet) Please avoid the use of over the counter medications, narcotics and opoid for the management of migraines as they can lead to Medication Overuse Headache. Keep a Headache diary and please bring your complete diary to the next appointment. Please check [place] [employer] web site and read about your conditions: Chronic migraine without aura and Migraine associated vertigo. Stop taking these medications: topamax For headache prevention: Start taking candesartan as prescribed ??? Remember that preventative medications usually take at least 4-6 weeks to be effective in reducing the frequency of your headaches. ??? Please keep a headache diary, documenting when your headaches occur and any possible triggers. Bring this with you to your appointments. ??? Triggers to watch for include stress, oversleeping or not sleeping enough, certain foods, MSG, will alcohol, too much caffeine, skipping meals, change in barometric pressure, menstrual cycles. ??? Quitting smoking is an important step in treating your headache. If you need help quitting, please ask! Resources are available. ??? If your medication does not seem to be working, or if you're experiencing side effects, please call my office at [phone], Sunday through Sunday, 8 AM to 5 PM (calling early in the day is best), and we can talk about possible medication adjustments over the phone. documented in this encounter Progress Notes * Evelyn Pelayo MD - 12/21/2015 8:30 AM EDT Neurology Headache Clinic Consultation Note Patient name: Andree Hummel Date of : 1990 Age: 25 y.o. PCP: JASON GOMEZ APRN I have been asked to see Andree UnderwoodWilliams in consultation by Jason Gomez for complain of Headaches in my capacity as Headache Medicine Specialist. Patient is accompanied by:?? mother CC:?? Headache, dizziness, left sided extremities/muscle/bone pain started next day after Topamax initiation HPI: Headache Age of first MINAYA onset: 15 y.o Onset of menstrual periods: at age of 10 Triggers: none Precipitating factors: Noise, light, heat, food Alleviating factors: meclizine. 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 Nightmares:no Family History of Migraines: pt's father Hx of motion sickness: yes Hx of abdominal migraine: yes Hx of fainting: yes since age of 15 Hx of cold extremities: yes Caffeine: 1-2 large cups of coffee Trauma Hx: s/p fall resulted in concussion when she was in 8th grade Total 6 concussion episodes are reported ( all of them happened at school age when she was involvedin team sport games and winter sport activities) Abuse Hx: none Psychiatric issues: Depression since age of 15, was placed on meds at that time but stopped it one year later due to concern for stigma associated with depression. 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 Renal stones: none Contraception: none, she reports that she might be currently LMP November 27, 2015 Dizziness: onset 5 years ago, getting worse for the last 9 months. Feels like on a boat ride. Associated with Nausea after dizziness. Blacking out for a few seconds after onset of dizziness. Hx of biting cheek few times. Worse with stress, especially after work shift. Do not eat well, however reports of drinking plentyof water. Started taking Topamax one week age per PCP and noticed left sided upper extremity pain next day, reports that it feels like pain is in her bone. Also reports tingling sensations in her extremities. Weight loss and decreased appetite: 40 lb in the last 6 months PREVIOUS TESTS: MRI head:none CT head, neck and spine thoracic and lumbar were reviewed and are negative from April 2015, patent has no recollection why she had all those tests TSH:recently done at PCP office - will get records about last TSH result and last PCP visit note, consent was signed by patient today ESR:none Lyme titers: none Lumbar puncture:none TREATMENT HISTORY: Treatment tried: Fluoxetine yes, no effect on MINAYA Zofran no help Reglan no help Current Medications: ??? levothyroxine (SYNTHROID) 175 mcg Tablet ??? citalopram (CELEXA) 20 mg Tablet ??? meclizine (ANTIVERT) 12.5 mg Tablet ??? TOPIRAMATE (TOPAMAX ORAL) Allergies: Allergies Allergen Reactions ??? Demerol [Meperidine] Anaphylaxis ??? Dilaudid [Hydromorphone (Bulk)] Hives Family History: Family History Problem Relation Age of Onset [...] ??? Arthritis Paternal Aunt ??? Asthma Brother Past Medical History: Past Medical History Diagnosis Date ??? Anemia not on meds ??? Anxiety sees therapist ??? Asthma Triggers are cold, exercise. Used steroids with episodes of bronchitis.. Asymptomatic for a year Intubated once when 18 months with bronchiolitis ??? Back pain ??? Cancer ??? Chlamydia 2010 ??? Depression 02/23/2011 not on meds or in counseling ??? Hypothyroidism ??? Irritable bowel syndrome 2009 ulcers ??? Knee dislocation bilateral, multiple events ??? Memory disorder ??? Migraine 02/23/2011 None in 3-4 years ??? Neuropathy ??? Other and unspecified ovarian cysts 2009 ??? Parkinsonism ??? Syncope and collapse ??? Varicella ??? Vision abnormalities Past Surgical History: Past Surgical History Procedure Laterality Date ??? Pro thyroidectomy, malig, ltd neck surg 03/22/2011 THYROIDECTOMY, FOR MALIGNANCY, LIMITED NECK DISSECTION performed by JUAN ESPARZA at [facility] MAIN OR ??? Prg somatosensory test, any/all per. nerves, trunk or head 03/22/2011 FACIAL NERVE MONITORING, SETUP performed by JUAN ESPARZA at [facility] MAIN OR ??? [place] tooth extraction ??? Upper gastrointestinal endoscopy for IBS, celiac excluded ??? Colonoscopy found polyps ??? Tonsillectomy 2010 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: 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 ??? Marital status: Single Spouse name: N/A ??? Number of children: 0 ??? 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 Smoking status: Current Some Day Smoker Packs/day: 0.50 Years: 4.00 Types: Cigarettes Last attempt to quit: 03/14/2012 ??? Smokeless tobacco: Never Used ??? Alcohol use No ??? Drug use: Yes Special: Marijuana ??? Sexual activity: Yes Partners: Male Other Topics Concern ??? Abuse Or Threat: Help Requested By Patient No ??? Abuse Or Threat: Physical, Sexual, Verbal No ??? Sleep Concern Yes ??? Violence Concern No ??? Weight Concern Yes 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 Narrative REVIEW OF SYSTEM Constitutional: No fevers or chills, (+) weight loss Eyes: No vision changes, no diplopia, (+)blurry vision ENT: No rhinorrhea or pharyngitis, no meningismus CV: No chest pain or palpitations Resp: No cough, no shortness of breath GI: No nausea, vomiting, diarrhea or constipation : No dysuria, no incontinence Heme: No bleeding or bruising Endo: No diabetes or thyroid disease Neuro: See HPI Psych: (+)depression, insomnia [x] Review of systems otherwise negative PHYSICAL EXAM BP 109/65 (BP Location (NBP): Right arm, Patient Position: Sitting, BP Cuff Sizes: Adult (25-34 cm)) Pulse 80 Ht 175.3 cm (5' 9) Comment: reported Wt 85.7 kg (189 lb) BMI 27.91 kg/m2 General: Alert, NAD Pain Behaviors: none HEENT: oral mucosa moist, no thrush, no carotid bruits, no thyromegaly Patient has good range of motion of the neck. The occipital nerves are tender. Heart: RRR, S1S2 nml, no murmur/rub/gallop Lungs: CTA bilaterally, no wheezes Abd: soft, nontender, nondistended Ext: no edema, no cyanosis or clubbing Skin: no rash or ecchimoses NEURO EXAM Mental Status Affect is appropriate.Alert, interactive and attentive Oriented to person, place, time Memory recent and remote -intact Language fluent with no dysarthria or aphasia Speech is clear, not dyarthric. Attention span wnl for age Concentration wnl for age Cranial Nerves: II,III,IV,: Visual Quintana Full To Confrontation, Pupils: 3 mm, PERRLA, EOMI V: Symmetric sensation to V1-3 VII: symmetric brow and smile, no drooping VIII: Air conduction > Bone Conduction, Alberto midline IX, X: Gag normal XI: SCMs 08/18; Shoulder Shru/5 XII:Tongue protrusion at midline Motor: No tremor, normal bulk and tone Right Left Deltoid 08/18 06/18 due to pain left UE Bicep 08/18 06/18 due to pain Left UE Tricep 08/18 06/18 due to pain left UE Wrist Ext 08/18 06/18 due to pain left LE Wrist flex 08/18 06/18 due to pain left UE Hip flexor 08/18 07/19 Knee ext 08/18 07/19 Knee flex 08/18 08/18 Plantar flex 08/18 08/18 Dorsi flex 08/18 08/18 DTR: Right Left Bicep/C5-6 2+ 2+ Triceps/C7 2+ 2+ BR/C6 2+ 2+ Patellar/L4 2+ 2+ Achilles/S1 2+ 2+ Sensation: intact light touch, vibration, proprioception diffusely Tremor: absent Coordination/Cerebellar exam: intact Finger Nose Finger and DARRELL(Rapid Alternative Movements), no dysmetria, no tremor. Gait: narrow based and steady, able to heel and toe walk, tandem gait intact. Romberg negative. ASSESSMENT and PLAN: ?? Migraine chronic( she has daily headacke) Dizziness associated with migraine Depression - on celexa, reports that it works well for depression, but does not work for her headache. Weight loss 40 lb in the last 6 months Concern for status during this visit Will stop topamax due to therapeutic failure and intolerable side effects(extremities pain and tingling). Will obtain Urine HCG today, if negative for will start Candesartan for migraine prophylaxis 8 mg X1 week, then 16 mg, if it fails in the future will consider Botox. She has occipital nerve tenderness and might benefit from occipital nerve block if pain still be uncontrolled with current modalities. F/u in 3 months with me. Labs: TSH - will request records from PCP, consent obtained Check BNP today to evaluate for significant acidosis associated with Topamax use. MRI brain with and without contrast due to concern for systemic symptoms such as weight loss Will benefit from ophthalmology evaluation - she is wearing glasses and is concerned that her current glasses might need to be changed. Continue with meclizine for dizziness since it works well. Patient was given [place] [employer] handouts about her headache condition and current issueof S Headache magazine. She was instructed to keep a Headache diary. Addendum: Urine HCG is negative today. Started on candesartan. Orders placed during this encounter Orders Placed This Encounter Procedures ??? MRI Brain With/WO Contrast (GENERIC) Standing Status: Future Standing Expiration Date: 12/20/2016 Order Specific Question: Where will study be performed? Answer: [facility] Order Specific Question: Reason for exam and clinical history: Answer: headake and weight loss 40 lb Order Specific Question: Is the patient ? Answer: Unknown Order Specific Question: Does patient require sedation? Answer: IV ??? urine, qualitative Standing Status: Future Number of Occurrences: 1 Standing Expiration Date: 12/20/2016 ??? Basic Metabolic Panel (non-fasting) Standing Status: Future Standing Expiration Date: 12/20/2016 I spent?? 100 minutes in this visit with 90 minutes devoted to face-to face patient counseling. Thank you, Jason Gomez for this consult. Evelyn Pelayo MD Department of Neurology Headache Medicine Fellow Above note was generated by chart review in preparation for the office visit. * Neo Pleitez MD - 12/21/2015 8:30 AM EDT Attending Note 12-21-15 I saw and evaluated the patient with Dr. Pelayo. I have reviewed the fellow's history during the visit and I agree with the details as written. The assessment and plan were formulated in discussionwith me at the time of the visit and I agree with them as documented. Discussed at length with patient about diagnostic considerations. Explained diagnosis and treatment. Patient understands and accepts our plan. Briefly,25 yo woman with chronic migraine and migraine anxiety related dizziness as well as depression. Citalopram works well for depression anxiety. She does not tolerate TPM. She may be . Plan is to check test, have her place Nuvaring, and start candesartan 16 mg preventively.If this fails, would proceed to BTX. Neo Pleitez MD documented in this encounter Plan of Treatment Upcoming Encounters Date Type Department Care Team (Late st Contact Info) Description 05/23/2024 Hospital Encounter Birthing [place] [phone] Maite Malloy MD [facility] DR OBSTETRICS [place] [address] documented as of this encounter Procedures Procedure Name Priority Date/Time Associated Diagnosis Comments URINE, QUALITATIVE ([facility]) Routine 12/21/2015 11:36 AM EDT Migraine with vertigo Intractable chronic migraine without aura and without status migrainosus documented in this encounter Results * urine, qualitative (12/21/2015 11:36 AM EDT) SG Urine 1.017 1.002 - 1.030 [facility] HCG Qual Negative [facility] Comment: If Specific [place] is less than 1.010, a negative result is obtained, and is still suspected, a repeat on a first morning specimen is recommended. Urine specimen (specimen) 12/21/2015 11:36 AM EDT 12/21/2015 12:08 PM EDT Narrative Resulting Agency Comment Spec In Lab Evelyn Pelayo MD URINE ORDERABLES [facility] [place] [place] [address] documented in this encounter Visit Diagnoses Diagnosis Migraine with vertigo Migraine with aura, without mention of intractable migraine without mention of status migrainosus Intractable chronic migraine without aura and without status migrainosus Chronic migraine without aura, with intractable migraine, so stated, without mention of status migrainosus documented in this encounter Care Teams Fly Finisher Relationship Specialty Start Date End Date Jason Gomez APRN [address] [place] [address] PCP - General 04/21/14 07/04/23 documented as of this encounter
--- OUTSIDE RECORDS SUMMARY | 2023-10-29 04:01 | XMS_ITS | Encounter Summary ---
Author Organization [facility] [place] [address] Care Team Providers Care Survey Cad Technician Name Role Phone Valencia Adhikari APRN Primary Care Provider [phone] Encounter Details Date Type Department Care Team (Late st Contact Info) Description 05/08/2016 4:00 PM EST Office Visit Obstetrics [place] [phone] [facility] OBSTETRICS & [place] [address] IUD check up 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 Tobacco Use Types Packs/Day Years Used Date Smoking Tobacco: Some Days Cigarettes 0.5 4 Started: 03/14/2008; Last attempted to quit: 03/14/2012 Smokeless Tobacco: Never Comments:working on it curre ntly Alcohol Use Standard Drinks/Week Comments No 0 (1 standard drink = 0.6 oz pur e alcohol) Sex and Gender Information Value Date Recorded Sex Assigned at Female 10/12/2023 9:44 AM EDT Gender Identity Female 10/12/2023 9:44 AM EDT Sexual Orientation Straight 10/12/2023 9: 44 AM EDT documented as of this encounter Progress Notes * Valencia Bourne CNM - 05/08/2016 4:00 PM EST Returned from US for acute onset pelvic pain with Mirena IUD in place. US reviewed with Andree: IMPRESSION Transvaginal IUD Location Summary The uterus is Retroverted and the adnexa is normal. This study was performed transvaginally. Summary: IUD seen in normal position within the endometrial cavity. 3D reconstruction was used to evaluate the uterus. I viewed the images and agree with the above interpretation. Ultrasound Dictation: US TRANSVAGINAL NON-OB: 1. Endovaginal and 3-D rendering of the uterus was performed for IUD positioning. 2. Uterus is retroverted and in a coronal orientation. The IUD is within midline position within the endometrium and a single arm is seen. Due to the coronal positioning of the uterus the left arm of the IUD is not fully visualized. 3. Bilateral ovaries are normal in appearance. No free Fluid. A/P: 25yo with acute onset pelvic pain with Mirena IUD in place Likely her menses Reassurance provided Ibuprofen given RTO for worsening or persistent pain documented in this encounter Plan of Treatment Upcoming Encounters Date Type Department Care Team (Late st Contact Info) Description 05/23/2024 [place] [phone] [facility] [address] OBSTETRICS [place] [address] documented as of this encounter Visit Diagnoses Diagnosis IUD check up Surveillance of previously prescribed intrauterine contraceptive device documented in this encounter Care Teams Survey Cad Technician Relationship Specialty Start Date End Date Valencia Adhikari APRN [address] [place] [address] PCP - General 04/21/14 07/04/23 documented as of this encounter
--- OUTSIDE RECORDS SUMMARY | 2023-10-29 04:01 | XMS_ITS | Encounter Summary ---
Author Organization [facility] [place] [address] Care Team Providers Care Senior Maintenance Machinist Name Role Phone None Primary Care Provider Unavailabl e Reason for Visit * Reason Onset Date Comments Advice Only 09/30/2012 Encounter Details Date Type Department Care Team (Late Contact Info) Description 09/30/2012 Telephone Endocrinology at [facility] [place] [phone] Omayra Meredith LPN Advice Only 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 Tobacco Use Types Packs/Day Years Used Date Smoking Tobacco: Some Days Cigarettes Started: 03/14/2008; Last attempted to quit: 03/14/2012 Smokeless Tobacco: Never Alcohol Use Standard Drinks/Week Comments No 0 (1 standard drink = 0.6 oz pur e alcohol) Comments Yes Sex and Gender Information Value Date Recorded Sex Assigned at Female 10/12/2023 9:44 AM EDT Gender Identity Female 10/12/2023 9:44 AM EDT Sexual Orientation Straight 10/12/2023 9: 44 AM EDT documented as of this encounter Miscellaneous Notes * Telephone Encounter - Omayra Meredith LPN - 09/30/2012 1:[address] Wallis patient to have TSH checked four weeks after of baby. Per patient her son ws born two weeks ago and is still here at [facility] (born 8 week early) Order to be placed here. If baby discharged within two weeks patient will call to have order faxed to local lab. documented in this encounter Plan of Treatment Upcoming Encounters Date Type Department Care Team (Late st Contact Info) Description 05/23/2024 [facility] [place] [phone] Maite Malloy MD [facility] OBSTETRICS [place] [address] documented as of this encounter Visit Diagnoses Not on filedocumented in this encounter Care Teams Senior Maintenance Machinist Relationship Specialty Start Date End Date None None PCP - General 05/08/12 04/20/14 documented as of this encounter
--- OUTSIDE RECORDS SUMMARY | 2023-10-29 04:01 | XMS_ITS | Encounter Summary ---
Author Organization [facility] Address [facility] [place] [address] Care Team Providers Care Cutting And Splicing Supervisor Name Role Phone Valencia Adhikari APRN Primary Care Provider [phone] [phone] Reason for Visit * Reason Comments Follow-up string check Encounter Details Date Type Department Care Team (Late st Contact Info) Description 04/11/2016 9:20 AM EST Office Visit Obstetrics [place] [phone] Pam Chaidez APRN [facility] OBSTETRICS & [place] [address] IUD check up (Primary Dx) 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 Tobacco Use Types [...] Sign Reading Time Taken Comments Blood Pressure 116/72 04/11/2016 9:31 AM EST Pulse 80 04/11/2016 9:31 AM EST Temperature - - Respiratory Rate - - Oxygen Saturation - - Inhaled Oxygen Concentration - - Weight 89.4 kg (197 lb) 04/11/2016 9:31 AM EST Height 172.7 cm (5' 8) 04/11/2016 9:31 AM EST Body Mass Index 29.95 04/11/2016 9:31 AM EST documented in this encounter Progress Notes * aPm Chaidez APRN - 04/11/2016 9:20 AM EST REASON FOR VISIT: IUD string check Subjective: Andree Hummel is a 25 y.o. female who had a MirenaIUD inserted on 03/14/2016. She is here today for a routine string check. Since insertion, Andree reports mild intermittent pelvic cramping, followed by some vaginal spotting. This typically only requires her to use a pad or panty liner. Andree did try using a tampon shortly after placement and felt like this was tender to insert. She has had intercourse since placement and her partner cannot feel the strings. Sex felt slightly uncomfortable, but this was also the first time she had sex in a few weeks. She denies fever, abnormal vaginal discharge, dyspareunia. She wishes to continue this method. Objective: BP 116/72 Pulse 80 Ht 172.7 cm (5' 8) Wt 89.4 kg (197 lb) LMP 02/24/2016 (Approximate) BMI 29.95 kg/m2 General: Appears healthy and well nourished. No apparent distress. Urethra: No lesions. Normal opening. Vulva: No lesions. Normal hair distribution. Vagina: [place], moist, rugated. Normal discharge noted. No lesions. No cystocle, rectocele or prolapse. Cervix: Posterior, pink and smooth. No abnormal discharge. IUD strings protruding from os and tucked behind the cervix. Assessment/Plan: Normal IUC check. No contraindications to continued Mirena IUD use. Encouraged monthly string checks. Andree will call the clinic if her pelvic cramping and vaginal bleeding don't continue to improvewith the IUD in place. We will consider a pelvic U/S to check placement if the pelvic cramping persists. RTC for annual WWV and PRN. PAM CHAIDEZ APRN 04/11/2016 documented in this encounter Plan of Treatment Upcoming Encounters Date Type Department Care Team (Late st Contact Info) Description 05/23/2024 [place] [address] Maite Malloy MD [facility] DR OBSTETRICS [place] [address] documented as of this encounter Visit Diagnoses Diagnosis IUD check up- Primary Surveillance of previously prescribed intrauterine contraceptive device documented in this encounter Care Teams Cutting And Splicing Supervisor Relationship Specialty Start Date End Date Valencia Adhikari APRN [address] [place] [address] PCP - General 04/21/14 07/04/23 documented as of this encounter
--- OUTSIDE RECORDS SUMMARY | 2023-10-29 04:01 | XMS_ITS | Encounter Summary ---
[facility] [place] [address] Care Team Providers Care Cotton Opener Name Role Phone Valencia Adhikari APRN Primary Care Provider [phone] [phone] Encounter Details Date Type Department Care Team (Latest Contact Info) Description 04/12/2016 10:00 AM EST - 04/12/2016 11:59 PM [facility] Hospital [place] [phone] Valencia Adhikari APRN [address] [place], [place] [address] Galactorrhea Discharge Disposition: Home 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 Tobacco Use [...] Sig Dispensed Refills Start Date End Date levonorgestrel (MIRENA) 20 mcg/24 hr (5 years) IUDIndications:insert ed 03/14/2016 1 each by Intrauterine route once. Indications: inserted 03/14/2016 03/14/2016 08/04/2020 levothyroxine (SYNTHROID) 175 mcg Tablet Take 150 mcg by mouth daily. 12/01/2016 citalopram (CELEXA) 20 mg Tablet Take 20 mg by mouth daily. 12/01/2016 meclizine (ANTIVERT) 12.5 mg Tablet Take 12.5 mg by mouth 3 times daily as needed. 09/12/2017 candesartan (ATACAND) 16 mg Tablet Take 0.5 tablets by mouth See Admin Instructions. 1 week 8 mg qhs, starting 2 nd week 16 mg qhs . 30 tablet 11 12/21/2015 05/08/2016 documented as of this encounter Plan of Treatment Upcoming Encounters Date Type Department Care Team (Late st Contact Info) Description 05/23/2024 Hospital [place] [phone] Maite Malloy MD [facility] DR OBSTETRICS [place] [address] documented as of this encounter Procedures Procedure Name Priority Date/Time Associated Diagnosis Comments MAMMO BREAST US LIMITED BILATERAL Routine 04/12/2016 10:41 AM EST Galactorrhea documented in this encounter Results * Mammo Breast Us Limited Bilateral (04/12/2016 10:41 AM EST) Anatomical Region Laterality Modality Breast Bilateral Mammography Impressions 04/12/2016 10:53 AM EST Left breast: Normal parenchymal elements in the setting of a history of benign nipple discharge. Right breast: Normal parenchymal elements in the setting of a history of benign nipple discharge. RECOMMENDATION: Follow-up clinically in regards to nonbreast/central etiologies. These findings and recommendations were discussed with the patient at the time of examination, who concurs. Left breast: BI-RADS 1, negative. Right breast: BI-RADS 1, negative. Narrative 04/12/2016 10:53 AM EST EXAMINATION: MAMMO BREAST US LIMITED BILATERAL CLINICAL HISTORY: BILAT BR US/GALACTORRHEA. 25-year-old patient reports bilateral nipple discharge without current evidence of bloody nipple discharge. TECHNIQUE: Bilateral directed ultrasound by the technologist. COMPARISON: None, baseline imaging. FINDINGS: Left breast: Dense parenchyma elements without ductal ectasia, mass or focal finding. Right breast: Dense parenchymal elements without ductal ectasia, mass, or focal finding. Valencia Adhikari STRAW HAT WASHER OPERATOR IMG MAMMO ORDERAB LES documented in this encounter Visit Diagnoses Diagnosis Galactorrhea Galactorrhea not associated with childbirth documented in this encounter Care Teams Cotton Opener Relationship Specialty Start Date End Date Valencia Adhikari APRN [address] [place] [address] PCP - General 04/21/14 07/04/23 documented as of this encounter
--- OUTSIDE RECORDS SUMMARY | 2023-10-29 04:01 | XMS_ITS | Encounter Summary ---
Author Organization [facility] [place] [address] Care Team Providers Care Spring Floor Service Worker Name Role Phone None Primary Care Provider Unavailabl e Reason for Visit * Reason Onset Date Comments Triage 04/17/2014 Encounter Details Date Type Department Care Team (Late st Contact Info) Description 04/17/2014 Telephone Orthopaedics at [facility] [place] [phone] Omayra Fulton, top distribution executive 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 Tobacco Use Types Packs/Day Years [...] encounter Miscellaneous Notes * Telephone Encounter - Alma Newby - 04/17/2014 2:36 PM EST Patient Scheduled * Telephone Encounter - Taty Browne - 04/17/2014 2:08 PM EST LMOM #1 To schedule with Nereida on Sunday. * Telephone Encounter - Taty Browne - 04/17/2014 2:03 PM EST Received 6 pages of office notes from [facility], for the patients upcoming appointment. List what was rec'd. ED NOTES XR RESULTS * Telephone Encounter - Omayra Schroeder RN - 04/17/2014 1:58 PM EST Appropriate for AP or Gen Ortho. * Telephone Encounter - Taty Browne - 04/17/2014 10:36 AM EST Ask the patient to verify the following: Full Name: Andree UnderwoodWilliams : 1990 Phone number: [phone] (home) Mailing [address]: [address] [place] [phone] Age: 23 y.o. Mom states patient was trying to move out of the way of a car and slipped and possibly hit her kneeoff a guardrail. She was seen in [facility] ED and was told she probably has a meniscus tear and needs tofollow up with Ortho. Mom states she works here. Please call her as her daughter is not available. Her name is Carmina and her number is [phone]. Appointment date: TBD Appointment is with: TBD Reason #1 Injury/Complaint: LEFT KNEE PAIN ? TORN MENISCUS Date of injury/complaint: 04/15/14 Is this a new injury? Yes Is this a 2nd opinion? No Appointment type: 18-100 Adult - Not sports related Is this Workers Comp? No How long have you had these symptoms? 2 days Records Retrieval Most recent physical exam: No X-rays: Yes - When? Where? Notes: 04/15/14 [place], [place] PH: [phone] FAX: [phone] IMG PUSH SEEN IN THEIR ED THIS DAY I AM CALLING TO GET IMAGES PUSHED AND RECS FAXED MRI: No CT Scan: No Physical therapy: No Injection: No Other diagnostic studies: No Other therapies: No Other specialist(s): No If 2nd (+) opinion get info on previous: No Have you had any surgeries for this issue? No Did surgery include placement of implant/hardware or fixation of any kind? No Do you use any type of orthotics? No Advanced Directive Do you have an Advanced Directive on file: No - Please bring a copy to your next appointment. Advance Directive bat carrier: New patient with knee pain under age of 55. MyD Do you have a [facility] account? No - Patient Declined - MOM BOOKED documented in this encounter Plan of Treatment Upcoming Encounters Date Type Department Care Team (Late st Contact Info) Description 05/23/2024 Hospital Encounter [facility] [place] [address] Maite Malloy MD [facility] DR OBSTETRICS [place] [address] documented as of this encounter Visit Diagnoses Not on filedocumented in this encounter Care Teams Spring Floor Service Worker Relationship Specialty Start Date End Date None None PCP - General 05/08/12 04/20/14 documented as of this encounter
--- OUTSIDE RECORDS SUMMARY | 2023-10-29 04:01 | XMS_ITS | Encounter Summary ---
Author Organization [facility] Address [facility] [place] [address] Care Team Providers Care Toy Trains And Accessories Salesperson Name Role Phone None Primary Care Provider Unavailabl e Encounter Details Date Type Department Care Team (Late st Contact Info) Description 09/12/2012 Telephone Obstetrics [place] [address] Valorie Hair MD [facility] DR OBSTETRICS & [place] [address] 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 Tobacco Use Types Packs/Day Years [...] encounter Miscellaneous Notes * Telephone Encounter - Valorie Hair MD - 09/12/2012 10:11 PM EDT Returned call to patient. Patient reporting that she had Edil-Vazquez earlier today that went away. She then began having more contractions since 5pm that are becoming stronger. She also notes leakage of fluid earlier, but none since. Good FM. Pt reports she was admitted for contractions last week with cervix 2cm/50%. Today in the office it was 2cm/90%. Patient to come in for evaluation. documented in this encounter Plan of Treatment Upcoming Encounters Date Type Department Care Team (Late st Contact Info) Description 05/23/2024 [place] [address] Maite Malloy MD [facility] DR OBSTETRICS [place] [address] documented as of this encounter Visit Diagnoses Not on filedocumented in this encounter Care Teams Toy Trains And Accessories Salesperson Relationship Specialty Start Date End Date None None PCP - General 05/08/12 04/20/14 documented as of this encounter
--- OUTSIDE RECORDS SUMMARY | 2023-10-29 04:01 | XMS_ITS | Encounter Summary ---
Author Organization [facility] [place] [address] Care Team Providers Care Commercial Baker Helper Name Role Phone None Primary Care Provider Unavailabl e Reason for Visit * Reason Onset Date Comments Post Hospital Discharge 09/16/2012 Encounter Details Date Type Department Care Team (Late st Contact Info) Description 09/16/2012 Telephone [place] [address] Eufemia Farias RN Post Hospital Discharge 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 Tobacco Use Types Packs/Day Years [...] encounter Miscellaneous Notes * Telephone Encounter - Eufemia Carlson RN - 09/16/2012 3:20 PM EDT Call to Andree who has just been d/c'd from [facility] for labor. 31w3d with EDC October 20. . LMOM. 2nd call to check on Toshaaaron. Left contact information on machine. documented in this encounter Plan of Treatment Upcoming Encounters Date Type Department Care Team (Late st Contact Info) Description 05/23/2024 Hospital [place] [phone] Maite Malloy MD [facility] OBSTETRICS [place] [address] documented as of this encounter Visit Diagnoses Not on filedocumented in this encounter Care Teams Commercial Baker Helper Relationship Specialty Start Date End Date None None PCP - General 05/08/12 04/20/14 documented as of this encounter
--- OUTSIDE RECORDS SUMMARY | 2023-10-29 04:01 | XMS_ITS | Encounter Summary ---
Author Organization [facility] [place] [address] Care Team Providers Care Wet Mixer Name Role Phone Valencia Adhikari APRN Primary Care Provider [phone] Encounter Details Date Type Department Care Team (Latest Contact Info) Description 02/06/2016 - 02/06/2016 12:04 AM EDT Hospital Encounter [place] [phone] Kedar Santos MD [facility] [place] [address] Discharge Disposition: Home 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 Tobacco Use [...] Refills Start Date End Date levothyroxine (SYNTHROID) 175 mcg Tablet Take 150 [...] Info) Description 05/23/2024 Hospital Encounter Birthing [place] [facility] [place] [address] Maite Malloy MD [facility] DR [place] [address] documented as of this encounter Procedures Procedure Name Priority Date/Time Associated Diagnosis Comments FILM LIBRARY STORAGE ONLY DX ELBOW Routine 02/06/2016 12:00 AM EDT documented in this encounter Results * Film Library- Storage Only DX Elbow (02/06/2016 12:00 AM EDT) Narrative [facility] - 05/17/2017 11:21 AM EST This exam is for storage only and is auto-finalizing. Kedar Santos MD IMG FILM LIBRARY ORD ERABLES [place], [place] documented in this encounter Visit Diagnoses Not on filedocumented in this encounter Care Teams Wet Mixer Relationship Specialty Start Date End Date Valencia Adhikari APRN [address] [place] [address] PCP - General 04/21/14 07/04/23 documented as of this encounter
--- OUTSIDE RECORDS SUMMARY | 2023-10-29 04:01 | XMS_ITS | Encounter Summary ---
Author Organization [facility] Address [facility] [place] [address] Care Team Providers Care Roustabout Pusher Name Role Phone Valencia Adhikari APRN Primary Care Provider [phone] Encounter Details Date Type Department Care Team (Latest Contact Info) Description 02/06/2016 12:10 AM EDT - 02/06/2016 11:59 PM EDT Hospital Encounter [place] [address] Kedar Santos MD [facility] [place] [address] Discharge Disposition: Home 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 Tobacco Use [...] Info) Description 05/23/2024 Hospital Encounter Birthing [place] [facility] [place] [address] Maite Malloy MD [facility] DR OBSTET[place]ICS [place] [address] documented as of this encounter Procedures Procedure Name Priority Date/Time Associated Diagnosis Comments FILM LIBRARY STORAGE ONLY CT ELBOW Routine 02/06/2016 12:10 AM EDT documented in this encounter Results * Film Library- Storage Only CT Elbow (02/06/2016 12:10 AM EDT) Narrative [facility] - 05/17/2017 11:25 AM EST This exam is for storage only and is auto-finalizing. Kedar Santos MD IMG FILM LIBRARY ORD ERABLES [place], [place] documented in this encounter Visit Diagnoses Not on filedocumented in this encounter Care Teams Roustabout Pusher Relationship Specialty Start Date End Date Valencia Adhikari APRN [address] [place] [address] PCP - General 04/21/14 07/04/23 documented as of this encounter
--- OUTSIDE RECORDS SUMMARY | 2023-10-29 04:01 | XMS_ITS | Encounter Summary ---
Author Organization [facility] Address [facility] [place] [address] Care Team Providers Care Site Coordinator Name Role Phone Valencia Adhikari APRN Primary Care Provider [phone] Reason for Visit * Reason Comments Left Knee Pain Encounter Details Date Type Department Care Team (Late st Contact Info) Description 05/05/2014 2:30 PM EST Office [place] [phone] Joshua Padron MD [facility] DR [place] [address] Left knee pain Discharge Disposition: Home 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 Tobacco Use [...] Sign Reading Time Taken Comments Blood Pressure 123/70 05/05/2014 2:13 PM EST Pulse 84 05/05/2014 2:13 PM EST Temperature - - Respiratory Rate - - Oxygen Saturation - - Inhaled Oxygen Concentration - - Weight 86.2 kg (190 lb) 05/05/2014 2:13 PM EST Height 172.7 cm (5' 8) 05/05/2014 2:13 PM EST Body Mass Index 28.89 05/05/2014 2:13 PM EST documented in this encounter Progress Notes * Joshua Padron MD - 05/06/2014 2:54 PM EST The patient was seen and examined by me on 05 May. The injury is healing well and I concur withthe outlined treatment plan. JDH * Alysa Lauren MD - 05/05/2014 3:37 PM EST CHIEF COMPLAINT: Left knee pain. SUPERVISING ATTENDING: Dr. Padron. HISTORY OF PRESENT ILLNESS: Andree is a 23-year-old female who returns 2 weeks after fall and suspected LCL strain. She reports her symptoms have much improved. She still has some soreness in the lateral aspect of her leg, but generally is getting around well using only a small neoprene knee sleeve. REVIEW OF SYSTEMS: No fevers, chills, nausea, vomiting, or other constitutional symptoms reported aside from her lower extremity pain. PHYSICAL EXAMINATION: On physical exam, she is alert and oriented, in no acute distress Bruising over her fibular head has resolved. She is stable to varus and valgus stress Mild pain with varus stress She has negative Markel. She is able to reach full extension approximately 120 degrees of flexion The clicking/catching has resolved sensation intact in superficial peroneal, deep peroneal and tibial distributions, ASSESSMENT AND PLAN: Ms. Hummel is a 23-year-old female with likely sprain of her lateral collateral ligament. 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 We will see her back only if needed. documented in this encounter Plan of Treatment Upcoming Encounters Date Type Department Care Team (Late st Contact Info) Description 05/23/2024 [place] [phone] Maite Malloy MD [facility] OBSTETRICS [place] [address] documented as of this encounter Visit Diagnoses Diagnosis Left knee pain Pain in joint, lower leg documented in this encounter Care Teams Site Coordinator Relationship Specialty Start Date End Date Valencia Adhikari APRN [address] [place] [address] PCP - General 04/21/14 07/04/23 documented as of this encounter
--- OUTSIDE RECORDS SUMMARY | 2023-10-29 04:01 | XMS_ITS | Encounter Summary ---
Author Organization [facility] Address [facility] [place] [address] Care Team Providers Care Respiratory Equipment Assistant Name Role Phone None Primary Care Provider Unavailabl e Encounter Details Date Type Department Care Team (Latest Contact Info) Description 09/15/2012 10:09 AM EDT - 09/15/2012 11:59 PM EDT Hospital [place] [phone] Griffin Allen MD [facility] PEDIATRICS/[place] [address] Discharge Disposition: Home 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 Tobacco Use [...] Sig Dispensed Refills Start Date End Date ondansetron (ZOFRAN-ODT) 4 mg oral disintegrating tablet Take 1 tablet by mouth every 8 hours as needed for Nausea. 30 tablet 0 09/12/2012 04/21/2014 levothyroxine (SYNTHROID) 125 mcg tabletIndications:Hypothy roidism Take 2 tablets by mouth nightly. 30 tablet 2 09/05/2012 12/17/2012 butalbital-acetaminophen- caffeine (FIORICET, ESGIC) per tabletIndications:Migrain e,, supervision of, high-risk Take 1 tablet by mouth every 4 hours as needed for Pain. 30 tablet 0 09/02/2012 04/21/2014 zolpidem (AMBIEN CR) 12.5 mg CR tablet Take 1 tablet by mouth nightly as needed for Sleep. 30 tablet 0 09/02/2012 04/21/2014 ONDANSETRON HCL (ZOFRAN ORAL) Take by mouth. 04/21/2014 RANITIDINE HCL (ZANTAC ORAL) Take by mouth. 04/21/2014 VITS W-CA,FE,FA,<1MG, ( VITAMIN ORAL) Take by mouth. documented as of this encounter Plan of Treatment Upcoming Encounters Date Type Department Care Team (Late st Contact Info) Description 05/23/2024 [place] [address] Maite Malloy MD [facility] DR OBSTETRICS [place] [address] documented as of this encounter Procedures Procedure Name Priority Date/Time Associated Diagnosis Comments SURGICAL PATHOLOGY REPORT Routine 09/15/2012 10:31 AM EDT documented in this encounter Results * Surgical Pathology Report (09/15/2012 10:31 AM EDT) Surgical Pathology Report ? [facility] ? Provider: ?? GRIFFIN ALLEN ??Pt. Name: ?? ANDREE HUMMEL ? E ? Acc #: ?[id number] ?Pt. ? Col Date: ?? 09/15/2012 ?/Sex: ?1990,(22 years),Female ? Rec Date: ?? 09/16/2012 ?LOC: ?[facility] ? SURGICAL PATHOLOGY ? ---Pathologic Diagnosis--- ? Third trimester placenta, cord and membranes: ? Negative for chorioamnionitis or funisitis. ? Features suggestive of abruption. ? CR-0 ? 09/19/12 ? KO ? 09/19/12 Verified by: ? Dorota Aiken MD ? Pathologist ? (Electronic Signature) ? The attending pathologist whose signature appears on this report has ? reviewed all diagnostic slides and has edited the gross and/or ? microscopic portion of the report in rendering the final pathologic ? diagnosis. ? ---Gross Description--- ? A - Labeled/Fixative: Patient's name, fresh. ? Qty/Size/Weight: ? Single, 18.5 x 17 x 3 cm, 371 g. ? Tissue Description: Intact discoid, locke placenta. ?Membranes: ? Startup and semitransparent with 100 percent marginal ? insertion. ?Cord: ? 32 x 1.2 cm; three vessels; central insertion. ??Received ? ligated with a shoelace. ? Surface: Purple and clear. ?Maternal Surface: Intact, there is a 3 x 3 cm area of adherent blood ? clot with parenchymal compression. ?Parenchyma: The specimen is serially sectioned at 0.5-cm to 1-cm ? intervals. Sections show pale pink and spongy without lesions. ? Sections/Processing : ??Sections are submitted as follows: (1) membrane ? roll; (2) proximal and distal cord; (3) ? surface; (4)maternal surface (5) maternal surface ? with blood clot. ??(R5) ??sns ? ---Clinical Information--- ? Specimen Submitted: ? A - Placenta ? Clinical History: ? 31 5/7 week infant born at home. ??Respiratory distress, hypotonia. ? [facility] ? Provider: ?? GRIFFIN ALLEN ??Pt. Name: ?? ANDREE HUMMEL ? E ? Acc #: ?[id number] ?Pt. ? Col Date: ?? 09/15/2012 ?/Sex: ?1990,(22 years),Female ? Rec Date: ?? 09/16/2012 ?LOC: ?[facility] ? SURGICAL PATHOLOGY ? Clinical Diagnosis: ? Same [facility] 09/15/2012 10:3 1 AM EDT Griffin Allen MD PATHOLOGY/CYTOLOGY ORDERABLES [facility] documented in this encounter Visit Diagnoses Not on filedocumented in this encounter Care Teams Respiratory Equipment Assistant Relationship Specialty Start Date End Date None None PCP - General 05/08/12 04/20/14 documented as of this encounter
--- OUTSIDE RECORDS SUMMARY | 2023-10-29 04:01 | XMS_ITS | Encounter Summary ---
Author Organization [facility] [place] [address] Care Team Providers Care A Operator Name Role Phone None Primary Care Provider Unavailabl e Encounter Details Date Type Department Care Team (Late st Contact Info) Description 09/30/2012 Orders [place] [phone] Griffin Wallis III, MD [facility] [place] [address] Hypothyroidism (Primary Dx) 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 Tobacco Use Types [...] Info) Description 05/23/2024 Hospital En[place] [address] Maite Malloy MD [facility] OBSTETR[place] [address] documented as of this encounter Visit Diagnoses Diagnosis Hypothyroidism- Primary Unspecified hypothyroidism documented in this encounter Care Teams A Operator Relationship Specialty Start Date End Date None None PCP - General 05/08/12 04/20/14 documented as of this encounter
--- OUTSIDE RECORDS SUMMARY | 2023-10-29 04:01 | XMS_ITS | Encounter Summary ---
Author Organization [facility] Address [facility] [place] [address] Care Team Providers Care Jewelry Salesperson Name Role Phone Valencia Adhikari APRN Primary Care Provider [phone] Reason for Visit * Reason Comments Vaginitis Follow-up Encounter Details Date Type Department Care Team (Late st Contact Info) Description 05/08/2016 1:00 PM EST Office Visit Obstetrics [place] [phone] Valencia Bourne [facility] OBSTETRICS & [place] [address] Acute pelvic pain, female (Primary Dx) 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 Tobacco Use Types Packs/Day Years Used Date Smoking Tobacco: Some Days Cigarettes 0.5 4 Started: 03/14/2008; Last attempted to quit: 03/14/2012 Smokeless Tobacco: Never Tobacco Cessation:Ready to Q uit: Yes; Counseling Given: No Comments:working on it currently Alcohol Use Standard Drinks/Week Comments No 0 (1 standard drink = 0.6 oz pur e alcohol) Sex and Gender Information Value Date Recorded Sex Assigned at Female 10/12/2023 9:44 AM EDT Gender Identity Female 10/12/2023 9:44 AM EDT Sexual Orientation Straight 10/12/2023 9: 44 AM EDT documented as of this encounter Last Filed Vital Signs Vital Sign Reading Time Taken Comments Blood Pressure 125/70 05/08/2016 1:08 PM EST Pulse 92 05/08/2016 1:08 PM EST Temperature 36.7 ??C (98 ??F) 05/08/2016 1:08 PM EST Respiratory Rate 14 05/08/2016 1:08 PM EST Oxygen Saturation 98% 05/08/2016 1:08 PM EST Inhaled Oxygen Concentration - - Weight 83.5 kg (184 lb) 05/08/2016 1:08 PM EST Height 172.7 cm (5' 8) 05/08/2016 1:08 PM EST Body Mass Index 27.98 05/08/2016 1:08 PM EST documented in this encounter Progress Notes * Valencia Bourne, RAY - 05/08/2016 1:00 PM EST CC: IUD check, brown vaginal discharge S: 25yo who presents for acute visit. Reports acute onset of sharp abdominal pain yesterdaywhile working. Had Mirena IUD inserted two months ago. Had normal string check visit last month. 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 States this freaked her out and so she called today for appt to be seen. The brown discharge continues only when she wipes and the sharp cramping continues today. She has not had a period since the IUD was placed. She is not taking anything for this pain. She had today off, feels she could have gone to work if needed to. O: Gen- NAD, a/o x3 pleasant and calm. Sitting up without pain Vitals: 05/08/16 1308 BP: 125/70 Pulse: 92 Resp: 14 Temp: 36.7 ??C (98 ??F) abd- soft, nt, no pain with palpation, no guarding or rebound tenderness Ext genitalia- WNL, no lesions, no discharge erythema or excoriation Vagina- scant marta brown mucous present, no lesions cvx- IUD strings present 3 cm from os, bloody mucous at os present Bimanual- neg CMT, neg adnexal tenderness. Sharp abdominal pain not reproducible on exam US: IMPRESSION Transvaginal IUD Location Summary The uterus [...] normal in appearance. No free Fluid. A/P: Mirena IUD in correct position Suggested to patient this is most likely her menses Reviewed first menses with IUD in place can be intense as body settles with IUD in place Sent for STAT US STD screening performed Ibuprofen provided to patient Reassurance provided Call for worsening or persistent symptoms documented in this encounter Plan of Treatment Upcoming Encounters Date Type Department Care Team (Late st Contact Info) Description 05/23/2024 [place] [address] Maite Malloy MD [facility] [address] OBSTETRICS [place] [address] documented as of this encounter Procedures Procedure Name Priority Date/Time Associated Diagnosis Comments GC/CHLAMYDIA Routine 05/08/2016 5:19 PM EST Acute pelvic pain, female GC/CHLAM Routine 05/08/2016 5:19 PM EST Acute pelvic pain, female documented in this encounter Results * GC/Chlam (05/08/2016 5:19 PM EST) GC Gene Amp Negative Negative [facility] Comment: The only FDA approved specimen types for this assay are cervix, vagina, urethra and urine. GC Source Cervical [facility] Chlamydia Gene Amp Negative Negative [facility] Comment: The only FDA approved specimen types for this assay are cervix, vagina, urethra and urine. Chlamydia Source Cervical [facility] Cervical swab (specimen) 05/08/2016 5:19 PM EST 05/08/2016 5:19 PM EST Narrative Resulting Agency Comment Spec In Lab Richard Stallings MD MICROBIOLOGY - GENER AL ORDERABLES Performing Organization Address City/State/[facility] Co de Phone Number [facility] [place] [address] * US Transvaginal Non OB (05/08/2016 2:22 PM EST) Anatomical Region Laterality Modality Ultrasound 05/08/2016 2:20 PM EST Impressions 05/08/2016 2:35 PM EST Transvaginal ??IUD Location Summary The uterus is Retroverted and the adnexa is normal. This study was performed transvaginally. Summary: ??IUD seen in normal position within the endometrial cavity. 3D reconstruction was used to evaluate the uterus. I ??viewed the images and agree with the above [...] ovaries are normal in appearance. No free fluid. Endometrium has a normal appearance. ? Phylicia March MD Electronically Signed Final Report ?? 05/08/2016 02:35 pm Narrative 05/08/2016 2:35 PM EST Gynecological Report ? (Signed Final 05/08/2016 02:35 pm) PATIENT INFO: ID #: ? [id number] ?: ??[birth year] (25 yrs) Name: ? PREETHI Godoy ? Visit Date: 05/08/2016 02:20 pm ? LOUISE- ? FRANK PERFORMED BY: Performed By: ? Itzel Lezama RDMS Attending: ?Anca LIMA, Phylicia JMiguel Referred By: ?RICHARD STALLINGS MD Location: ? [place] SERVICE(S) PROVIDED: ??UTV - Transvaginal - [id number] ?[id number] ??U3D - ??3D rendering with interpretation - [id number] ? [id number] INDICATIONS: ??pelvic pain with IUD in place -------- HISTORY: -------- Age: ?? 25 ------- UTERUS: ------- Uterus: ? Visualized Position: ?? Retroverted Size (cm) ?L: ??7.31 ?W: ?? 5.03 ? H: ??4.6 ENDOMETRIUM: Endometrium: ?Normal appearance Thickness(mm): ?6.75 Comment: ? IUD seen in normal position within the ?endometrial cavity RIGHT OVARY: Status: ?? Visualized Size (cm) ?L: ??2.82 ?W: ?? 3.03 ? H: ??1.68 Vol (ml): ?7.5 Morphology: ?Normal appearance LEFT OVARY: Status: ?? Visualized Size (cm) ?L: ??2.98 ?W: ?? 3.11 ? H: ??2.04 Vol (ml): ?9.9 Morphology: ?Normal appearance --------- COMMENTS: --------- 3D rendering with interpretation was performed Procedure Note Phylicia March MD - 05/08/2016 Gynecological Report (Signed Final 05/08/2016 02:35 pm) PATIENT INFO: ID #: [id number] : [birth year] (25 yrs) Name: PREETHI Godoy Visit Date: 05/08/2016 02:20 pm MARIO MARIE PERFORMED BY: Performed By: Itzel Lezama RDMS Attending: Phylicia March MD Referred By: RICHARD STALLINGS MD Location: [place] SERVICE(S) PROVIDED: UTV - Transvaginal - [id number] U3D - 3D rendering with interpretation - [id number] INDICATIONS: pelvic pain with IUD in place -------- HISTORY: -------- Age: 25 ------- UTERUS: ------- Uterus: Visualized Position: Retroverted Size (cm) L: 7.31 W: 5.03 H: 4.6 ENDOMETRIUM: Endometrium: Normal appearance Thickness(mm): 6.75 Comment: IUD seen in normal position within the endometrial cavity RIGHT OVARY: Status: Visualized Size (cm) L: 2.82 W: 3.03 H: 1.68 Vol (ml): 7.5 Morphology: Normal appearance LEFT OVARY: Status: Visualized Size (cm) L: 2.98 W: 3.11 H: 2.04 Vol (ml): 9.9 Morphology: Normal appearance --------- COMMENTS: --------- 3D rendering with interpretation was performed IMPRESSION Transvaginal IUD Location Summary The uterus [...] ovaries are normal in appearance. No free fluid. Endometrium has a normal appearance. Phylicia March MD Electronically Signed Final Report 05/08/2016 02:35 pm Richard Stallings MD IMG US PELVIC ORDERA BLES documented in this encounter Visit Diagnoses Diagnosis Acute pelvic pain, female- Primary Unspecified symptom associated with female genital organs Acute pelvic pain, female Unspecified symptom associated with female genital organs documented in this encounter Care Teams Jewelry Salesperson Relationship Specialty Start Date End Date Valencia Adhikari APRN [address] [place] [address] PCP - General 04/21/14 07/04/23 documented as of this encounter
--- OUTSIDE RECORDS SUMMARY | 2023-10-29 04:01 | XMS_ITS | Encounter Summary ---
Author Organization [facility] [place] [address] Care Team Providers Care Fundraising Assistant Name Role Phone OnofreValencia pitts [place] Primary Care Provider [phone] Encounter Details Date Type Department Care Team (Late st Contact Info) Description 12/01/2016 External Results [place] [phone] Isaac Osorio MD [facility] [place] [address] 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 Tobacco Use Types Packs/Day Years [...] Contact Info) Description 05/23/2024 Hospital [place] [address] Maite Malloy MD [facility] OBSTETRICS [place] [address] documented as of this encounter Procedures Procedure Name Priority Date/Time Associated Diagnosis Comments EMG SCAN Routine 12/01/2016 documented in this encounter Results * Scan Doc: EMG (12/01/2016) Isaac Osorio MD MEDIA MGR SCAN EXT O RDR/RSLT documented in this encounter Visit Diagnoses Not on filedocumented in this encounter Care Teams Fundraising Assistant Relationship Specialty Start Date End Date Valencia Adhikari APRN [address] [place] [address] PCP - General 04/21/14 07/04/23 documented as of this encounter
--- OUTSIDE RECORDS SUMMARY | 2023-10-29 04:01 | XMS_ITS | Encounter Summary ---
Author Organization [facility] [place] [address] Care Team Providers Care Can Tender Name Role Phone None Primary Care Provider Unavailabl e Encounter Details Date Type Department Care Team (Late st Contact Info) Description 12/20/2012 External Results [place] [address] Griffin Wallis III, MD [facility] [place] [address] Hypothyroidism 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 Tobacco Use Types Packs/Day Years [...] Contact Info) Description 05/23/2024 Hospital [place] [address] Maite Malloy MD [facility] OBSTETRICS [place] [address] documented as of this encounter Procedures Procedure Name Priority Date/Time Associated Diagnosis Comments TSH Routine 12/12/2012 Hypothyroidism documented in this encounter Results * (ABNORMAL) TSH (12/12/2012) TSH 0.15(SPECIFICATIONS WRITER AL/ABN) Blood specimen (specimen) Griffin Wallis III, MD CHEMISTRY ORDER AMANDA documented in this encounter Visit Diagnoses Diagnosis Hypothyroidism Unspecified hypothyroidism documented in this encounter Care Teams Can Tender Relationship Specialty Start Date End Date None None PCP - General 05/08/12 04/20/14 documented as of this encounter
--- OUTSIDE RECORDS SUMMARY | 2023-10-29 04:01 | XMS_ITS | Encounter Summary ---
Author Organization [facility] Address [facility] [place] [address] Care Team Providers Care Public Transit Specialist Name Role Phone Valencia Adhikari APRN Primary Care Provider [phone] Encounter Details Date Type Department Care Team (Latest Contact Info) Description 05/08/2016 1:58 PM EST - 05/08/2016 11:59 PM EST Hospital Encounter [place] [phone] Richard Stallings MD [facility] OBSTETRICS & [place] [address] Acute pelvic pain, female Discharge Disposition: Home 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 Tobacco Use [...] Contact Info) Description 05/23/2024 [facility] [place] [address] Maite Malloy MD [facility] DR OBSTETRICS [place] [address] documented as of this encounter Procedures Procedure Name Priority Date/Time Associated Diagnosis Comments US TRANSVAGINAL NON OB STAT 05/08/2016 2:22 PM EST Acute pelvic pain, female documented in this encounter Results * US Transvaginal Non OB (05/08/2016 2:22 [...] fluid. Endometrium has a normal appearance. ? Phyliciase Megan March MD Electronically Signed Final Report ?? 05/08/2016 02:35 pm Narrative 05/08/2016 2:35 PM EST Gynecological Report ? (Signed Final 05/08/2016 02:35 pm) PATIENT INFO: ID #: ? [id number] ?: ??[birth year] (25 yrs) Name: ? PREETHI Godoy ? Visit Date: 05/08/2016 02:20 pm ? LOUISE- ? FRANK PERFORMED BY: Performed By: ? Itzel Lezama RDMS Attending: ?Anca LIMA, Phylicia Guzman. Referred By: ?RICHARD STALLINGS MD Location: ? [place] SERVICE(S) PROVIDED: ??UTV - Transvaginal - [id number] ?[id number] ??U3D - ??3D rendering with interpretation - [id number] ? [id number] INDICATIONS: ??pelvic pain with IUD in place [...] 05/08/2016 02:35 pm) PATIENT INFO: ID #: [id number] : [birth year] (25 yrs) Name: PREETHI Godoy Visit Date: 05/08/2016 02:20 pm MARIO MARIE PERFORMED BY: Performed By: Itzel Lezama RDMS Attending: Phylicia March MD Referred By: RICHARD STLALINGS MD Location: [place] SERVICE(S) PROVIDED: UTV - Transvaginal - [id number] U3D - 3D rendering with interpretation - [id number] INDICATIONS: pelvic pain with IUD in place [...] encounter Visit Diagnoses Diagnosis Acute pelvic pain, female Unspecified symptom associated with female genital organs documented in this encounter Care Teams Public Transit Specialist Relationship Specialty Start Date End Date Valencia Adhikari APRN [address] [place] [address] PCP - General 04/21/14 07/04/23 documented as of this encounter
--- OUTSIDE RECORDS SUMMARY | 2023-10-29 04:01 | XMS_ITS | Encounter Summary ---
Author Organization [facility] [place] [address] Care Team Providers Care Fiberglass Quality Technician Name Role Phone None Primary Care Provider Unavailabl e Reason for Visit * Reason Onset Date Comments Labs Only 11/14/2012 Encounter Details Date Type Department Care Team (Late st Contact Info) Description 11/14/2012 Telephone Endocrinology at [facility] [place] [place] [phone] Omayra Meredith LPN Labs Only 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 Tobacco Use Types Packs/Day [...] Telephone Encounter - Omayra Meredith LPN - 11/14/2012 2:01 PM EDT Returning call to patient asking to have lab order to go to [facility]. TSH order electronically faxed. Patient told that if when she arrives at lab order is not they should not leave but ask lab to call us. Patient agrees with plan of care. documented in this encounter Plan of Treatment Upcoming Encounters Date Type Department Care Team (Late st Contact Info) Description 05/23/2024 Hospital Encounter [place] [phone] Maite Malloy MD [facility] [place] [address] documented as of this encounter Results * (ABNORMAL) TSH (12/12/2012) TSH 0.15(PATTERN DEVELOPER AL/ABN) Blood specimen (specimen) Griffin Wallis III, MD CHEMISTRY ORDER AMANDA documented in this encounter Visit Diagnoses Diagnosis Hypothyroidism- Primary Unspecified hypothyroidism documented in this encounter Care Teams Fiberglass Quality Technician Relationship Specialty Start Date End Date None None PCP - General 05/08/12 04/20/14 documented as of this encounter
--- OUTSIDE RECORDS SUMMARY | 2023-10-29 04:01 | XMS_ITS | Encounter Summary ---
Author Organization [facility] [place] [address] Care Team Providers Care Director Of Business Applications Name Role Phone None Primary Care Provider Unavailrisa e Encounter Details Date Type Department Care Team (Late st Contact Info) Description 04/17/2014 Telephone [place] [address] Taty Browne 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 Tobacco Use Types Packs/Day Years [...] encounter Miscellaneous Notes * Telephone Encounter - Taty Browne - 04/17/2014 10:32 AM EST Ask the patient to verify the following: Full Name: Andree Hummel : 1990 Phone number: [phone] (home) Mailing address: [place] [address] Age: 23 y.o. Appointment date: TBD Appointment is with: TBD [...] X-rays: Yes - When? Where? Notes: 04/15/14 [facility] [place] PH: [phone] FAX: [phone] IMG PUSH MRI: No CT Scan: No Physical therapy: [...] copy to your next appointment. Advance Directive supplies packer: New patient with knee pain under age of 55. MyDH Do you have a MyD account? No - Patient Declined - MOM BOOKED documented in this encounter Plan of Treatment Upcoming Encounters Date Type Department Care Team (Late st Contact Info) Description 05/23/2024 [place] [phone] Maite Malloy MD [facility] OBSTETRICS [place] [address] documented as of this encounter Visit Diagnoses Not on filedocumented in this encounter Care Teams Director Of Business Applications Relationship Specialty Start Date End Date None None PCP - General 05/08/12 04/20/14 documented as of this encounter
--- OUTSIDE RECORDS SUMMARY | 2023-10-29 04:01 | XMS_ITS | Encounter Summary ---
Author Organization [facility] [place] [address] Care Team Providers Care Gang Miner Name Role Phone None Primary Care Provider Unavailabl e Reason for Visit * Reason Onset Date Comments Medication Refill 12/17/2012 Encounter Details Date Type Department Care Team (Late st Contact Info) Description 12/17/2012 Ref[place] [phone] Griffin Wallis III, MD [facility] DR [place] [address] 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 Tobacco Use Types Packs/Day Years [...] Contact Info) Description 05/23/2024 Hospital [place] [phone] Maite Malloy MD [facility] OBSTETRICS [place] [address] documented as of this encounter Visit Diagnoses Not on filedocumented in this encounter Care Teams Gang Miner Relationship Specialty Start Date End Date None None PCP - General 05/08/12 04/20/14 documented as of this encounter
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
--- OUTSIDE RECORDS SUMMARY | 2023-10-29 04:01 | XMS_ITS | Encounter Summary ---
Author Organization [facility] Address [facility] [place] [address] Care Team Providers Care Hospital Laboratory Technician Name Role Phone None Primary Care Provider Unavailabl e Reason for Visit * Reason Comments Abdominal Pain abd pain and back pa in worse today Encounter Details Date Type Department Care Team (Latest Contact Info) Description 09/08/2012 3:03 PM EDT - 09/08/2012 6:56 PM EDT Hospital Encounter Birthing [place] [address] Katelynn Lawton MD [facility] OBSTETRICS [place] [address] Discharge Disposition: Home 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 Tobacco Use [...] Sign Reading Time Taken Comments Blood Pressure 108/66 09/08/2012 3:25 PM EDT Pulse 70 09/08/2012 3:25 PM EDT Temperature 36.6 ??C (97.9 ??F) 09/08/2012 3:25 PM ED T Respiratory Rate 18 09/08/2012 3:25 PM EDT Oxygen Saturation 97% 09/08/2012 3:25 PM EDT Inhaled Oxygen Concentration - - Weight - - Height - - Body Mass Index - - documented in this encounter Medications at Time of Discharge Medication Sig Dispensed Refills Start Date End Date levothyroxine (SYNTHROID) 125 mcg tabletIndications:Hypoth yroidism Take 2 tablets by mouth nightly. 30 tablet 2 09/05/2012 12/17/2012 butalbital-acetaminophen -caffeine (FIORICET, ESGIC) per tabletIndications:Migrai ne,, supervision of, high-risk Take 1 tablet by [...] by mouth. documented as of this encounter Progress Notes * Katelynn Lawton MD - 09/08/2012 6:42 PM EDT Progress Note S: Patient continues to have low back pain and pelvic pressure. It hasn't changed since she arrived. No LOF or vaginal bleeding. O: Patient Vitals for the past 24 hrs: BP Temp Temp src Pulse Resp SpO2 09/08/12 1525 108/66 mmHg 36.6 ??C (97.9 ??F) Oral 70 18 97 % Cervical Exam: Dilation: 2 (09/08/12 1841) Effacement: 50 Station: High -4 Position: Posterior Consistency: Medium Guzman Score: 3 OB Examiner: dr. Sin A/P: Andree is a 22 y.o. female at 30w6d with painful back pain and pelvic pressure. Cervical exam is unchanged and stable from prior admission a few days ago. She does endorse significant constipation (has a bowel movement every 4-5 days) and is very hesitant to try and bowel regimen. Recommended starting with colace once every other day to begin as this could be contributing to her pelvic pressure. Also, recommended wearing the support band regularly and taking tylenol and applying heat on affected muscles. She was recently found to have a shortened cervix of 0.9 cm and discussed modified bed rest recommendations - only up 15 minutes of every hour. Discharged with planned follow-up later this week as previously scheduled. Discussed with Dr. Jered SIN MD, PGY3 I was the attending physician supervising the resident in the above care. We discussed her assessment and plan at the time of her visit and I agree with Dr. Sin's documentation. * Katelynn Lawton MD - 09/08/2012 4:01 PM EDT [facility] Triage Visit Name: Andree Hummel MR#: [id number] Date of Visit: 09/08/2012 Time: 4:01 PM CC: back pain and pelvic pressure HPI: Andree is a 22 y.o. y with Estimated Date of Delivery: 11/12/12 at 30w5d gestation complaining of back pain. Of note, she was admitted to [facility] with contractions. During that admission her cervix was checked multiple times and was stable at 2 cm/50%. She received betamethasone for lung maturity. She had a formal ultrasound which showed a shortened cervical length (0.9cm) and macrosomia. Endocrinology was consulted regarding patient's elevated TSH and her synthroidwas increased to 250 mcg daily. Today she reports ongoing back pain and this morning she had increased pelvic pressure that felt like she had to have a bowel movement. She also reports a headache which is normal for her. Denies fevers, chills, diarrhea, constipation, dysuria, change in vaginal itching/burning, cough/cold/flulike symptoms, or sick contacts. No vaginal bleeding, LOF. Good movement. Movement: normal Contractions: low back cramping Leaking: None Bleeding: none now Preeclampsia signs and symptoms: headache This has been complicated by: Patient Active Problem List Diagnoses Code ??? Migraine 346.90 ??? Depression 311 ??? 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 , supervision of, high-risk V23.9 ? ? 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 Obesity (BMI 30.0-34.9) 278.00 ??? History of loss in prior , currently V23.2 ??? Threatened labor, antepartum 644.03 Prior to Admission Medications Prescriptions prior to admission Medication Sig Dispense Refill ??? levothyroxine (SYNTHROID) 125 mcg tablet Take 2 tablets by mouth nightly. 30 tablet 2 ??? qyzxawyikb-yufjbbtuuugbm-ocpdetql (FIORICET, ESGIC) per tablet Take 1 tablet by mouth every 4 hours as needed for Pain. 30 tablet 0 ??? zolpidem (AMBIEN CR) 12.5 mg CR tablet Take 1 tablet by mouth nightly as needed for Sleep. 30 tablet 0 ??? ONDANSETRON HCL (ZOFRAN ORAL) Take by mouth. ??? RANITIDINE HCL (ZANTAC ORAL) Take by mouth. ? ? VITS W-CA,FE,FA,<1MG, ( VITAMIN ORAL) Take by mouth. O: VS: Filed Vitals: 09/08/12 1525 BP: 108/66 Pulse: 70 Temp: 36.6 ??C (97.9 ??F) Resp: 18 Gen: uncomfortable appearing, NAD with mother at bedside. C-V: RRR, No M/R/G Resp: CTAB Abdo: Soft, gravid, obese, non-tender. SVE: Dilatation: Dilation: 2 Effacement: Effacement: 50 Station: Station: -3 NST: Baseline Rate: Baseline Rate: 140 bpm Accelerations: Accelerations: Present Decelerations: occasional variable decels. Variability: Moderate [place]: contractions every 1-4 minutes irregular. Labs: Component Value Date/Time SPGRAVITYUA 1.009 09/08/2012 1626 PHUADIP 7.5 09/08/2012 1626 PROTEINUADIP Negative 09/08/2012 1626 GLUCOSEU Negative 09/08/2012 1626 KETONESUA Negative 09/08/2012 1626 UROBILIUADIP Normal 09/08/2012 1626 BLOODUADIP Negative 09/08/2012 1626 NITRATEUA Negative 09/08/2012 1626 LEUKOESTERUA Negative 09/08/2012 1626 WBCUA 4 09/08/2012 1626 BILIRUBINUA Negative 09/08/2012 1626 Ultrasound 09/04/2012: GA: 30 and 1/ Presentation: vtx Placenta: Anterior UDAY: 19.6 EFW: 1998 gm (>95%) Cervix: 0.9 cm A/P: Andree Ceja is a 22 y.o. at 30w5d gestation who presents to triage with back pain and contractions. Her cervical exam has been unchanged since being discharged on This case discussed with Drs. Sin and Jered. ALBERT WALKER MD PGY1 09/08/2012 I was the attending physician supervising the resident in the above care. We discussed her assessment and plan at the time of her visit and I agree with Dr. Walker's documentation. * Bere Rodriguez RN - 09/08/2012 3:40 PM EDT Pt to BP 1 w from home with c/o of abd pain and back pain, placed on EFM, contractions 3-4 min and mild to palpation, pt breathing with contractions, rated pain 9/10, Dr. Walker at bs sve done with nochange since last admission, , fhr 140 with accels and reactive nst, will continue to assess 1845- Dr. Sin at , sve rechecked with no change noted, discharge teaching done and d/c to home with instructions documented in this encounter Plan of Treatment Upcoming Encounters Date Type Department Care Team (Late st Contact Info) Description 05/23/2024 Hospital [place] [address] Maite Malloy MD [facility] OBSTETRICS [place] [address] documented as of this encounter Procedures Procedure Name Priority Date/Time Associated Diagnosis Comments URINALYSIS WITH REFLEX CULTURE Routine 09/08/2012 4:26 PM EDT documented in this encounter Results * (ABNORMAL) Urinalysis with microscopic (09/08/2012 4:26 PM EDT) Glucose UA Negative Negative mg/dL CERNER MILLENNIUM Protein UA Negative mg/dL CERNER MILLENNIUM Bilirubin UA Negative Negative mg/dL CERNER MILLENNIUM Urobilinogen UA Normal mg/dL CERN ER MILLENNIUM pH UA 7.5 5.0 - 8.0 CERNER MILLENNIUM Blood UA Negative mg/dL CERNER MILLENNIUM Ketones UA Negative mg/dL CERNER MILLENNIUM Nitrite UA Negative CERNER MILLENNIUM Leukocytes UA Negative mcL CERNER MILLENNIUM Appearance UA Hazy(A) Clear CERNER MILLENNIUM Spec [place] UA 1.009 1.002 - 1.030 CERNER MILLENNIUM Color UA Yellow Yellow CERNER MILLENNIUM RBC UA Not Present 0 - 4 CERNER MILLENNIUM WBC UA 4 0 - 5 /HPF CERNER MILLENNIUM Bacteria UA Few /HPF CERNER MILLENNIUM Squam Epith UA 2 <=4 /HPF CERNE R MILLENNIUM Amorph Vanessa UA Occasional /HPF CERN ER MILLENNIUM Urine specimen (specimen) 09/08/2012 4:26 PM EDT 09/08/2012 4:36 PM EDT Narrative Resulting Agency Comment Spec In Lab Katelynn Lawton MD [facility]AB[facility] documented in this encounter Visit Diagnoses Not on filedocumented in this encounter Care Teams Hospital Laboratory Technician Relationship Specialty Start Date End Date None None PCP - General 05/08/12 04/20/14 documented as of this encounter
--- OUTSIDE RECORDS SUMMARY | 2023-10-29 04:01 | XMS_ITS | Encounter Summary ---
Author Organization [facility] Address [facility] [place] [address] Care Team Providers Care Associate Professor Of History Name Role Phone Valencia Adhikari APRN Primary Care Provider [phone] Encounter Details Date Type Department Care Team (Latest Contact Info) Description 02/06/2016 12:05 AM EDT - 02/06/2016 12:09 AM EDT Hospital Encounter [place] [address] Kedar Santos MD [facility] DR [place] [address] Discharge Disposition: Home 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 Tobacco Use [...] Info) Description 05/23/2024 Hospital Encounter Birthing [facility] [place] [address] Maite Malloy MD [facility] DR OBSTETRICS [place] [address] documented as of this encounter Procedures Procedure Name Priority Date/Time Associated Diagnosis Comments FILM LIBRARY STORAGE ONLY DX SHOULDER Routine 02/06/2016 12:05 AM EDT documented in this encounter Results * Film Library- Storage Only DX Shoulder (02/06/2016 12:05 AM EDT) Narrative RAD - 05/17/2017 11:23 AM EST This exam is for storage only and is auto-finalizing. Kedar Santos MD IMG FILM LIBRARY ORD ERABLES [place], [place] documented in this encounter Visit Diagnoses Not on filedocumented in this encounter Care Teams Associate Professor Of History Relationship Specialty Start Date End Date Valencia Adhikari APRN [address] [place] [address] PCP - General 04/21/14 07/04/23 documented as of this encounter
--- OUTSIDE RECORDS SUMMARY | 2023-10-29 04:01 | XMS_ITS | Encounter Summary ---
Author Organization [facility] Address [facility] [address] [address] Care Team Providers Care Rotary Lithographic Press Operator Name Role Phone None Primary Care Provider Unavailabl e Reason for Visit * Reason Comments Routine Visit Encounter Details Date Type Department Care Team (Late st Contact Info) Description 09/12/2012 11:00 AM EDT Routine Obstetrics [place] [address] Lalita Carmona MD [facility] DR OBSTETRICS & [place] [address] Mely Mccord MD [facility] DR OBSTETRICS & [place] [address] GA: 31w2d Discharge Disposition: Home 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 Tobacco Use [...] Sign Reading Time Taken Comments Blood Pressure 114/64 09/12/2012 10:43 AM EDT Pulse - - Temperature - - Respiratory Rate - - Oxygen Saturation - - Inhaled Oxygen Concentration - - Weight 92.9 kg (204 lb 11.2 oz) 013 10:43 AM EDT Height - - Body Mass Index 31.12 09/02/2012 8:04 AM EDT documented in this encounter Progress Notes * Lalita Carmona MD - 09/12/2012 11:05 AM EDT FM felt, no LOF some increased mucus d/c, no bleeding, some jemima ias during hospitalization.C/o frequent N/V associated with attempting to eat. PTL Sx's reviewed. Zofran refilled. Small frequent meals advised. CIB. F/u 1 week. documented in this encounter Miscellaneous Notes * Miscellaneous - Provider, Scanning - 09/13/2012 12:09 PM EDT documented in this encounter Plan of Treatment Upcoming Encounters Date Type Department Care Team (Late st Contact Info) Description 05/23/2024 Hospital [place] [phone] Maite Malloy MD [facility] OBSTETRICS [place] [address] documented as of this encounter Visit Diagnoses Diagnosis Unspecified high-risk - Primary documented in this encounter Care Teams Rotary Lithographic Press Operator Relationship Specialty Start Date End Date None None PCP - General 05/08/12 04/20/14 documented as of this encounter
--- OUTSIDE RECORDS SUMMARY | 2023-10-29 04:01 | XMS_ITS | Encounter Summary ---
Author Organization [facility] [place] [address] Care Team Providers Care Business Intelligence Reporting Analyst Name Role Phone None Primary Care Provider Unavailabl e Encounter Details Date Type Department Care Team (Late st Contact Info) Description 07/04/2013 Telephone [place] [address] Omayra Meredith LPN 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 Tobacco Use Types Packs/Day Years [...] Telephone Encounter - Omayra Meredith LPN - 07/04/2013 11:57 AM EDT Returning call to patient asking to have thyroid labs done I feel off. Patient last seen 05/08/12.Patient was told that Dr Wallis has stepped down from patient care. Patient should have received a letter from Dr Wallis referring her back to PCP. Patient was advised to call PCP for lab orders and if PCP feels it is necessary PCP can refer patient back to endocrinology. Patient agrees with plan of care documented in this encounter Plan of Treatment Upcoming Encounters Date Type Department Care Team (Late st Contact Info) Description 05/23/2024 Hospital Encounter [place] [phone] Maite Malloy MD [facility] DR OBSTETRICS [place] [address] documented as of this encounter Visit Diagnoses Not on filedocumented in this encounter Care Teams Business Intelligence Reporting Analyst Relationship Specialty Start Date End Date None None PCP - General 05/08/12 04/20/14 documented as of this encounter
--- OUTSIDE RECORDS SUMMARY | 2023-10-29 04:01 | XMS_ITS | Encounter Summary ---
Author Organization Formerly [facility] [place] [address] Care Team Providers Care Calendering Supervisor Name Role Phone Valencia Adhikari APRN Primary Care Provider [phone] Encounter Details Date Type Department Care Team (Late st Contact Info) Description 04/01/2015 9:00 AM EST Office Visit Obstetrics [place] [phone] Pam Chaidez APRN [facility] [place] [address] Nipple discharge in female (Primary Dx); Possible ; Encounter for Nexplanon removal; Routine screening for STI (sexually transmitted infection) 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 Tobacco Use Types Packs/Day Years [...] Sign Reading Time Taken Comments Blood Pressure 116/60 04/01/2015 8:50 AM EST Pulse - - Temperature - - Respiratory Rate - - Oxygen Saturation - - Inhaled Oxygen Concentration - - Weight - - Height - - Body Mass Index - - documented in this encounter Progress Notes * Анна, Pam M, ACCIDENT INVESTIGATOR - 04/01/2015 8:45 AM EST REASON FOR VISIT: Nexplanon removal and leaking from nipples Subjective: Andree Hummel is a 24 y.o. female who presented to the clinic today originally for a New OB visit. She states she had 3 positive pregnacy tests at home and also started to experience bilateral nipple discharge in the shower two days ago. This was a cream-color, like she made when her son. We did a urine test upon arriving to the clinic which was negative. Andree has a Nexplanon in place. She had her Nexplanon placed in October 2012 after the of her son, Fabio. She desires removal today due to irregular bleeding and feeling slight depression symptoms, which she states started after the Nexplanon was placed. She is not currently with a sexualpartner, as she states he cheated. We discussed other forms of control and Andree is uncertain about which method she'd like. She does not want to be at this time. She is aware of the risks of removing the Nexplanon. Andree also has concerns over this new bilateral nipple discharge that started a couple of days ago. This happens in the shower only. She does not report any recent breast stimulation. The discharge is cream in color. No masses noted in her breasts. She had leaking like this when she was her son. A friend of hers told her she was , so she's here today for an evaluation. ROS: See HPI, all others are negative. Objective: BP 116/60 mmHg Urine test in office - negative General: Appears healthy and well-nourished. No apparent distress. Breast Exam: Positive fibrocystic breast tissue present with no distinctly palpable masses bilaterally. No skin changes. No nipple retraction. Scant amount of cream-colored fluid noted in right nipple only. No expression in discharge with manual exam. Procedure: Prior to the start of this procedure, I confirmed the patient's identity, intended procedure and availability of equipment needed. Patient's L arm was cleansed with iodine. Anesthesia achieved with 2cc of 1% lidocaine with epi. The Nexplanon was removed without difficulty and as per grout machine operator instructions. Pt tolerated the procedure well. The james was shown to the patient prior to disposal. Placed steri strips over site and a gauze pressure dressing. Assessment/Plan: Bilateral nipple discharge. Negative office PT. Will send Andree to the lab to have a quantitative hCG level drawn. I will call her later today with these results. Also ordered a prolactin level. I discussed with Andree that this should be done first thing in the morning following no breast stimulation for 3 days, but given that she was here and we were doing labs we'd have it checked. If it returns elevated, she should have this redrawn after appropriate conditions have been met. Andree lynne last had her TSH level checked two weeks ago which she states were normal. Nexplanon removal today at patient request. Andree will call with any signs and symptoms of infection or other concerns. She was instructed to leave guaze in place for 24hrs and keep the site dry. Contraception counseling provided. We discussed in depth other contraception options as I stressed that could occur immediately following removal. We reviewed pills, the nuva ring, IUD's, Nexplanon and depo injection. After thorough discussion of options, Andree is most interested in starting the nuva ring. BRAIDED informed consent obtained for the nuva ring. No contraindications to use. Use the Nuva ring as instructed. Start today if hCG levels return negative and use a back-up method x 7 days. Reviewed ACHES and reasons to call. STI screening. Ordered urine GC/CT to be sent due to sexual history. Await results. PAM CHAIDEZ APRN 04/01/2015 documented in this encounter Plan of Treatment Upcoming Encounters Date Type Department Care Team (Late st Contact Info) Description 05/23/2024 Hospital Encounter Birthing [facility] [place] [phone] Maite Malloy MD [facility] [place] [address] documented as of this encounter Procedures Procedure Name Priority Date/Time Associated Diagnosis Comments GC/CHLAMYDIA Routine 04/01/2015 10:09 AM EST Routine screening for STI (sexually transmitted infection) GC/CHLAM Routine 04/01/2015 10:09 AM EST Routine screening for STI (sexually transmitted infection) PROLACTIN Routine 04/01/2015 10:02 AM EST Nipple discharge in female BETA HCG, QUANTITATIVE Routine 04/01/2015 10:02 AM EST Possible POCT URINE Routine 04/01/2015 Possible documented in this encounter Results * GC/Chlam (04/01/2015 10:09 AM EST) Pathologist [facility] [place] GC Gene Amp Negative Negative [facility] Comment: The only FDA approved specimen types for this assay are cervix, vagina, urethra and urine. ??The sensitivity and specificity of the assay for other specimen types has not been determined. GC Source [facility]rine [facility] Chlamydia Gene Amp Negative Negative [facility] Comment: The only FDA approved specimen types for this assay are cervix, vagina, urethra and urine. ??The sensitivity and specificity of the assay for other specimen types has not been determined. Chlamydia Source Urine [facility] Urine specimen (specimen) 04/01/2015 10:09 AM EST 04/01/2015 10:19 AM EST Narrative Resulting Agency Comment Spec In Lab Richard Faust MD MICROBIOLOGY - GENER AL ORDERABLES [facility] * Beta HCG, quantitative (04/01/2015 10:02 AM EST) [facility] Beta hCG Quant <1 mlU/ML [facility] Comment: REFERENCE RANGES NON- FEMALE: ??Less than 5 mIU/mL POSTMENOPAUSAL FEMALE: ??Less than 8 mIU/mL ? -- FEMALES -- Weeks of ? HCG range ??(mIU/mL) ? 3 weeks ? 5.8 - 71.2 ? 4 weeks ? 9.5 - 750 ? 5 weeks ? 217 - 7,138 ? 6 weeks ? 158 - 31,795 ? 7 weeks ? 3,697 - 163,563 ? 8 weeks ? 32,065 - 149,571 ? 9 weeks ? 63,803 - 151,410 ?10 weeks ? 46,509 - 186,977 ?12 weeks ? 27,832 - 210,612 ?14 weeks ? 13,950 - 62,530 ?15 weeks ? 12,039 - 70,971 ?16 weeks ? 9,040 - 56,451 ?17 weeks ? 8,175 - 16,868 ?18 weeks ? 8,099 - 11,176 Blood specimen (specimen) 04/01/2015 10:02 AM EST 04/01/2015 10:15 AM EST Narrative Resulting Agency Comment Spec In Lab Richard Faust MD CHEMISTRY ORDERABLES Performing Organization Address [facility] de Phone Number [facility] * Prolactin (04/01/2015 10:02 AM EST) Pathologist [facility] [place] Prolactin 21.1 4.8 - 23.3 ng/mL [facility] Blood specimen (specimen) 04/01/2015 10:02 AM EST 04/01/2015 10:15 AM EST Narrative Resulting Agency Comment Spec In Lab Richard Faust MD CHEMISTRY ORDERABLES Performing Organization Address [facility] de Phone Number [facility] * POCT urine (04/01/2015) Pathologist [facility] [place] POC Urine HCG Negative Negative - Negative POC Control Internal Controls Acceptable Peg So MD POINT OF CARE TEST ORDERABLES documented in this encounter Visit Diagnoses Diagnosis Nipple discharge in female- Primary Other sign and symptom in breast Possible examination or test, unconfirmed Encounter for Nexplanon removal Surveillance of previously prescribed implantable subdermal contraceptive Routine screening for STI (sexually transmitted infection) Screening examination for venereal disease documented in this encounter Care Teams Calendering Supervisor Relationship Specialty Start Date End Date Valencia Adhikari APRN [address] [place] [address] PCP - General 1/6/15 3/20/24 documented as of this encounter
--- OUTSIDE RECORDS SUMMARY | 2023-10-29 04:01 | XMS_ITS | Encounter Summary ---
Author Organization [facility] Address [facility] [place] [address] Care Team Providers Care Label Drier Name Role Phone Valencia Adhikari APRN Primary Care Provider [phone] Reason for Visit * Reason Comments Back Pain Encounter Details Date Type Department Care Team (Late st Contact Info) Description 04/25/2015 10:57 PM EST - 04/26/2015 1:39 AM EST [place] [address] Eduardo Braun MD [facility] [place] [address] Cervical strain, initial encounter; Closed head injury, initial encounter; Multiple contusions; Head injury, initial encounter; Fall on or from stairs or steps, initial encounter Discharge Disposition: Home 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 Tobacco Use [...] Sign Reading Time Taken Comments Blood Pressure 118/70 04/26/2015 1:15 AM EST Pulse 62 04/25/2015 10:58 PM EST Temperature 36.8 ??C (98.2 ??F) 04/26/2015 1:36 AM ES T Respiratory Rate 16 04/25/2015 10:58 PM EST Oxygen Saturation 96% 04/26/2015 1:15 AM EST Inhaled Oxygen Concentration - - Weight - - Height - - Body Mass Index - - documented in this encounter Discharge Instructions * Discharge Instructions* Harsha Lucas MD - 04/26/2015 1:25 AM EST You were seen today in the Emergency Department for your head, neck, and back pain. Your imaging showed that you did not have a bleed or fracture. It is most likely due to muscle strain/inflammation after a traumatic experience. Please take Motrin and Tylenol as needed for pain relief. Also Ice your sore areas generously. Please follow up with your Primary Care doctor or return to the ED if your pain worsens, you develop new ones such as confusion, vomiting, or loss of consciousness, or if you have any other concerns. documented in this encounter Medications at Time of Discharge Medication Sig Dispensed Refills Start Date End Date etonogestrel-ethinyl estradiol (NUVARING) 0.12-0.015 mg/24 hr Ring Insert vaginally and leave in place for 3 consecutive weeks, then remove for 1 week. 1 each 12 04/01/2015 12/21/2015 levothyroxine (SYNTHROID) 200 mcg Tablet Take 200 mcg by mouth daily. 12/21/2015 levothyroxine (SYNTHROID) 25 mcg Tablet Take 50 mcg by mouth daily. 12/21/2015 hydrOXYzine (ATARAX) 50 mg Tablet Take 50 mg by mouth 4 times daily as needed for Itching. 12/21/2015 documented as of this encounter ED Notes * Lianne Lakhani - 04/26/2015 12:12 AM EST Pt back from CT * Harsha Lucas MD - 04/25/2015 11:10 PM EST ALYSSA Hummel is a 24 y.o. female who presents to the Emergency Department with diffuse stiffness and soreness, primarily in her neck, chest, and back, after slipping down 3-4 stairs last night. She was intoxicated at the time, and fell backwards, landing on her head, and subsequently rolling over. Friends report questionable loss of consciousness. She continued drinking/partying after the incident. Endorses nausea and a mild headache today, denies assoc sx such as n/t/w in her extremities, bowel or bladder incontinence, lightheadedness, vision change, confusion, SOB, CP or palpitations, vomiting, dysuria, hematuria, or body rashes/lacerations. Able to ambulate and went to wor today, decided to come to the ED this evening because the pain/soreness was worsening. Review of Systems: Pertinent positive and negative ROS discussed in HPI. Patient Vitals for the past 24 hrs: BP Temp Temp src Pulse Resp SpO2 04/25/15 2258 122/76 mmHg 36.7 ??C (98.1 ??F) Oral 62 16 99 % Physical Exam: Physical Exam Constitutional: She is oriented to person, place, and time. She appears well- developed and well-nourished. Cervical collar in place. Appears tense and in mild discomfort due to diffuse pain HENT: Head: Normocephalic and atraumatic. Head is without raccoon's eyes, without Monroy's sign, without abrasion, without contusion, without laceration, without right periorbital erythema and without leftperiorbital erythema. Right Ear: External ear normal. Left Ear: External ear normal. Nose: Nose normal. Mouth/Throat: Oropharynx is clear and moist. Eyes: Conjunctivae are normal. Neck: In c-collar due to midline ttp Cardiovascular: Normal rate, regular rhythm, normal heart sounds and intact distal pulses. Exam reveals no gallop and no friction rub. No murmur heard. Pulmonary/Chest: Effort normal. No respiratory distress. She exhibits tenderness. Abdominal: Soft. Bowel sounds are normal. She exhibits no distension. There is no rebound and no guarding. Diffusely ttp, particularly in the lower quadrants bilaterally Musculoskeletal: Cervical back: She exhibits tenderness, bony tenderness and pain. She exhibits no swelling, no edema, no deformity and no laceration. Thoracic back: She exhibits tenderness, bony tenderness and pain. She exhibits no swelling, no edema, no deformity and no laceration. Lumbar back: She exhibits tenderness, bony tenderness and pain. She exhibits no swelling, no edema,no deformity and no laceration. Pain throughout back both midline (on spine) as well as lateral Neurological: She is alert and oriented to person, place, and time. Skin: Skin is warm and dry. No rash noted. She is not diaphoretic. No erythema. No pallor. Nursing note and vitals reviewed. ED Course: - Patient was evaluated and discussed with Dr. Braun - Medications, allergies and past medical history reviewed - I reviewed the CT images: CT head neg for bleed, CT C/T/L-spines negative for fracture or dislocation - C-collar removed once her CT images showed no C-spine fx - Medications administered: Toradol 30mg, Percocet 5-325 Assessment and Plan: Assessment: 24 y.o. female with diffuse pain and soreness after a fall yesterday while intoxicated.CT head and spinal images negative for bleed or fractures. She truly seems to be diffusely tender, she has no point ttp, and I think it is most likely due to inflammation/muscle strain after a traumatic incident yesterday. No focal neuro deficits, hemodynamically stable, vitals wnl. I told her to take Ibuprofen/Tylenol prn for pain relief, in addition to applying ice/heat and following up with her PCP. Return precautions were verbally discussed with the patient and written in discharge instructions, including worsening pain, confusion, nausea/vomiting, or other concerns. The patient expressed understanding that she could come back to the ED at any time and agreed to the follow-up plan. Harsha Lucas MD Resident 04/26/15 1026 Associated attestation - Eduardo Braun MD - 04/29/2015 6:00 PM EST ATTENDING PHYSICIAN I have seen the patient and reviewed the resident's documentation and I agree with the details as written. The assessment and plan were formulated in discussion with me and I agree with them as documented. I also performed my own history and physical examination. Medical decision making in this note is my own. Pertinent History: Fell while intoxicated. This occurred yesterday. Complaining of head, neck, and trunk. Pertinent Exam Findings: Diffusely tender but no objective signs of fracture or dislocation. Laboratory/radiography: As above. Assessment MDM: Trip and fall while intoxicated: Minor closed head injury possible concussion. Cervical strain without fracture. Possible multiple other mild contusions. Particular attention was directed to the possibility that this might be a presentation of a potentially life-threatening process including cardiac or cerebral ischemia, systemic infection, or vascular catastrophe. History and physical exam along with laboratory testing were reassuring with respect to possible life-threatening process. Plan: Symptomatic treatment as needed return should any new symptoms occur. documented in this encounter Miscellaneous Notes * ED Triage - Shanika Macrum RN - 04/25/2015 11:00 PM EST Pt was drinking last night and slipped going down stairs falling down 3-4 and hitting her back. Today very stiff and sore. No numbness or tingling no bowel or bladder issues. amb stiffly into triage.Appears in discomfort. documented in this encounter Plan of Treatment Upcoming Encounters Date Type Department Care Team (Late st Contact Info) Description 05/23/2024 Hospital Encounter [place] [address] Maite Malloy MD [facility] DR OBSTETRICS [place] [address] documented as of this encounter Procedures Procedure Name Priority Date/Time Associated Diagnosis Comments CT LUMBAR SPINE WWO CONTRAST STAT 04/26/2015 12:[address] THORACIC SPINE WO CONTRAST STAT 04/26/2015 12:[address] HEAD AND CERVICAL SPINE WO CONTRAST STAT 04/25/2015 11:59 PM EST documented in this encounter Results * CT Lumbar Spine Wo Contrast (GENERIC) (04/26/2015 12:09 AM EST) Anatomical Region Laterality Modality L-spine Computed Tomogra phy Impressions 04/26/2015 1:11 AM EST IMPRESSION: 1. ??No evidence for an acute traumatic injury to the lumbar spine. I have personally reviewed the image(s) and the residents interpretation and agree with the findings, David Felipe at 04/26/2015 1:11 AM Narrative 04/26/2015 1:11 AM EST EXAMINATION: CT LUMBAR SPINE WO CONTRAST CLINICAL HISTORY: s/p fall with tenderness in L spine, s/p fall with tenderness in L spine TECHNIQUE: Noncontrast CT lumbar spine COMPARISON: None FINDINGS: No acute fracture or listhesis. A prominent Schmorl's node is seen involving the inferior endplate of L4. Subchondral sclerosis, vacuum phenomenon and cystic changes seen in the SI joints bilaterally. A small amount of free fluid is seen in the deep pelvis. Procedure Note David Felipe MD - 04/26/2015 EXAMINATION: CT LUMBAR SPINE WO CONTRAST CLINICAL HISTORY: s/p fall with tenderness in L spine, s/p fall withtenderness in L spine TECHNIQUE: Noncontrast CT lumbar spine COMPARISON: None FINDINGS: No acute fracture or listhesis. A prominent Schmorl's node is seeninvolving the inferior endplate of L4. Subchondral sclerosis, vacuum phenomenon and cystic changes seen in theSI joints bilaterally. A small amount of free fluid is seen in the deep pelvis. IMPRESSION IMPRESSION: 1. No evidence for an acute traumatic injury to the lumbar spine. I have personally reviewed the image(s) and the residents interpretationand agree with the findings, David Felipe at 04/26/2015 1:11 AM Eduardo Braun MD IMG CT ORDERABLES * CT Thoracic Spine Wo Contrast (04/26/2015 12:09 AM EST) Anatomical Region Laterality Modality T-spine Computed Tomogra phy Impressions 04/26/2015 1:03 AM EST IMPRESSION: 1. ??No evidence of acute traumatic injury to the thoracic spine. I have personally reviewed the image(s) and the residents interpretation and agree with the findings, David Felipe at 04/26/2015 1:03 AM Narrative 04/26/2015 1:03 AM EST EXAMINATION: CT THORACIC SPINE WO CONTRAST CLINICAL HISTORY: s/p fall with t-spine tenderness, s/p fall with t-spine tenderness TECHNIQUE: Noncontrast CT thoracic spine COMPARISON: None FINDINGS: There is loss of the normal thoracic kyphosis. No fracture or malalignment. Mild anterior endplate degenerative changes are noted at T7-T8, T8-9 and T9-T10. A 5 mm pleural-based nodule is seen at the periphery of the right lower lobe. Procedure Note David Felipe MD - 04/26/2015 EXAMINATION: CT THORACIC SPINE WO CONTRAST CLINICAL HISTORY: s/p fall with t-spine tenderness, s/p fall witht-spine tenderness TECHNIQUE: Noncontrast CT thoracic spine COMPARISON: None FINDINGS: There is loss of the normal thoracic kyphosis. No fracture ormalalignment. Mild anterior endplate degenerative changes are noted at T7-T8, T8-9 andT9-T10. A 5 mm pleural-based nodule is seen at the periphery of the right lowerlobe. IMPRESSION IMPRESSION: 1. No evidence of acute traumatic injury to the thoracic spine. I have personally reviewed the image(s) and the residents interpretationand agree with the findings, David Felipe at 04/26/2015 1:03 AM Eduardo Braun MD IMG CT ORDERABLES * CT Head & Cervical Spine Wo Contrast (GENERIC) (04/25/2015 11:59 PM EST) Anatomical Region Laterality Modality Head Computed Tomogra phy Impressions 04/26/2015 12:59 AM EST IMPRESSION: 1. ??No acute intracranial hemorrhage. 2. ??No evidence of acute injury to the cervical spine. I have personally reviewed the image(s) and the residents interpretation and agree with the findings, David Felipe at 04/26/2015 12:59 AM Narrative 04/26/2015 12:59 AM EST EXAMINATION: CT HEAD AND CERVICAL SPINE WO CONTRAST CLINICAL HISTORY: s/p fall while intoxicated with ?LOC, concern for bleed/fx, s/p fall while intoxicated with ?LOC, concern for bleed/fx TECHNIQUE: Noncontrast CT head and cervical spine COMPARISON: None FINDINGS: CT head: No acute intracranial hemorrhage. No extra axial collection. No ventriculomegaly or midline shift. No calvarial injury. Orbits and paranasal sinuses are normal. Cervical spine: There is loss of the normal cervical lordosis. The craniocervical junction is normal. No malalignment. No fracture seen. No prevertebral soft tissue swelling or perched facets. Incidental noted is made of a lipoma in the left rhomboid muscle. Procedure Note David Felipe MD - 04/26/2015 EXAMINATION: CT HEAD AND CERVICAL SPINE WO CONTRAST CLINICAL HISTORY: s/p fall while intoxicated with ?LOC, concern forbleed/fx, s/p fall while intoxicated with ?LOC, concern for bleed/fx TECHNIQUE: Noncontrast CT head and cervical spine COMPARISON: None FINDINGS: CT head: No acute intracranial hemorrhage. No extra axial collection. Noventriculomegaly or midline shift. No calvarial injury. Orbits and paranasal sinuses are normal. Cervical spine: There is loss of the normal cervical lordosis. The craniocervical junctionis normal. No malalignment. No fracture seen. No prevertebral soft tissueswelling or perched facets. Incidental noted is made of a lipoma in the left rhomboid muscle. IMPRESSION IMPRESSION: 1. No acute intracranial hemorrhage. 2. No evidence of acute injury to the cervical spine. I have personally reviewed the image(s) and the residents interpretationand agree with the findings, David Felipe at 04/26/2015 12:59 AM Eduardo Braun MD IMG CT ORDERABLES documented in this encounter Visit Diagnoses Diagnosis Cervical strain, initial encounter Closed head injury, initial encounter Multiple contusions Contusion of multiple sites, not elsewhere classified Head injury, initial encounter Fall on or from stairs or steps, initial encounter documented in this encounter Administered Medications Inactive Administered Medications - up to 3 most recent administrations Medication Order MAR Action Action Date Dose Rate Site ketorolac (TORADOL) injection 30 mg 30 mg, Intravenous, ONCE, 1 dose, On 04/25/15 at 2335, STAT Given 04/25/2015 11:35 PM EST 30 mg oxyCODONE-acetaminophen (PERCOCET) 5-325 mg per tablet 2 tablet 2 tablet, Oral, ONCE, 1 dose, On 04/26/15 at 0031, Maximum dose of acetaminophen is 4000 mg from all sources in 24 hours., STAT Given 04/26/2015 12:40 AM EST 2 tablets documented in this encounter Active and Recently Administered Medications Times are shown in EST. Scheduled Medication Order 04/24/2015 04/25/2015 04/26/2015 ketorolac (TORADOL) injection 30 mg (COMPLETED) 30 mg, Intravenous, ONCE, 1 dose, On 04/25/15 at 2335, STAT 2335 (Given - Provider: Lianne Lakhani) oxyCODONE-acetaminophen (PERCOCET) 5-325 mg per tablet 2 tablet (COMPLETED) 2 tablet, Oral, ONCE, 1 dose, On 04/26/15 at 0031, Maximum dose of acetaminophen is 4000 mg from all sources in 24 hours., STAT 0040 (Given - Provid er: Lianne Lakhani) documented in this encounter Care Teams Label Drier Relationship Specialty Start Date End Date Valencia Adhikari APRN [address] [place] [id number] PCP - General 04/21/14 07/04/23 documented as of this encounter
--- OUTSIDE RECORDS SUMMARY | 2023-10-29 04:01 | XMS_ITS | Encounter Summary ---
Author Organization [facility] Address [facility] [place] [address] Care Team Providers Care Major Appliance Assembly Supervisor Name Role Phone None Primary Care Provider Unavailabl e Encounter Details Date Type Department Care Team (Latest Contact Info) Description 09/18/2012 10:28 AM EDT - 09/18/2012 10:29 AM EDT Hospital [place] [address] Myles Shipman MD [facility] DR OBSTETRICS & [place] [address] Discharge Disposition: Home 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 Tobacco Use [...] Contact Info) Description 05/23/2024 Hospital [place] [id number] Maite Malloy MD [facility] DR OBSTETRICS [place] [address] documented as of this encounter Visit Diagnoses Not on filedocumented in this encounter Care Teams Major Appliance Assembly Supervisor Relationship Specialty Start Date End Date None None PCP - General 05/08/12 04/20/14 documented as of this encounter
--- OUTSIDE RECORDS SUMMARY | 2023-10-29 04:01 | XMS_ITS | Encounter Summary ---
Author Organization Formerly [facility] [place] [address] Care Team Providers Care Battery Charger Conveyor Line Name Role Phone Valencia Adhikari APRN Primary Care Provider [phone] Reason for Visit * Reason Comments Follow-up IUD consult, inserti on Encounter Details Date Type Department Care Team (Late st Contact Info) Description 03/14/2016 10:00 AM EST Office Visit Obstetrics [place] [address] Pam Chaidez APRN [facility] OBSTETRICS [facility] [place] [address] Encounter for IUD insertion (Primary Dx); IUD (intrauterine device) in place 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 [...] Sign Reading Time Taken Comments Blood Pressure 112/68 03/14/2016 10:14 AM EST Pulse 90 03/14/2016 10:14 AM EST Temperature 37.1 ??C (98.7 ??F) 03/14/2016 10:[address] Respiratory Rate 14 03/14/2016 10:14 AM EST Oxygen Saturation 95% 03/14/2016 10:14 AM EST Inhaled Oxygen Concentration - - Weight 85.7 kg (188 lb 15 oz) 03/14/2016 10:14 A M EST Height 175 cm (5' 8.9) 03/14/2016 10:14 AM EST Body Mass Index 27.98 03/14/2016 10:14 AM EST documented in this encounter Progress Notes * Pam Chaidez, VP OF CUSTOMER EXPERIENCE STRATEGY - 03/14/2016 10:00 AM EST REASON FOR VISIT: IUD consult and insertion Subjective: Andree WallisYasir is a 25 y.o. female who is here for consultation and insertionof the Mirena IUD. Andree has been with her current partner for 6 months and they are currently using condoms for contraception. She states they haven't been sexually active for awhile now since theyhad a scare and her partner wanted her to start on a more effective method of contraception. Patient's last menstrual period was 02/24/2016 (approximate). The Mirena IUD was reviewed, including efficacy, method of insertion, risks including but not limited to infection and uterine perforation, benefits, and side effects. She is aware of these risks andhas no questions. Andree reviewed and signed the IUD insertion consent form. Andree continues to have her bilateral nipple discharge, but states her PCP is working her up for this. She just had lab work done last Sunday. Patient Active Problem List Diagnosis Date Noted ??? IUD (intrauterine device) in place 03/14/2016 ??? Intractable chronic migraine without aura 12/21/2015 ??? Left knee pain 04/21/2014 ? ? 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 Hypothyroidism, postsurgical s/p thyroid cancer 05/10/2011 ??? Depression 02/23/2011 Past Medical History Diagnosis Date ??? Anemia [...] Varicella ??? Vision abnormalities Past Surgical History Procedure Laterality Date ??? Pro thyroidectomy, malig, ltd neck surg 03/22/2011 THYROIDECTOMY, FOR MALIGNANCY, LIMITED NECK DISSECTION performed by JUAN ESPARZA at [facility] OR ??? Prg somatosensory test, any/all per. nerves, trunk or head 03/22/2011 FACIAL NERVE MONITORING, SETUP performed by JUAN ESPARZA at [facility] OR ??? [place] tooth extraction ??? Upper gastrointestinal endoscopy for IBS, celiac excluded ??? Colonoscopy found polyps ??? Tonsillectomy 2010 Outpatient Prescriptions Marked as Taking for the 03/14/16 encounter (Office Visit) with Pam Chaidez APRN Medication Sig Dispense Refill ??? levonorgestrel (MIRENA) 20 mcg/24 hr (5 years) IUD 1 each by Intrauterine route once. Indications: inserted 03/14/2016 ??? levothyroxine (SYNTHROID) 175 mcg Tablet Take 150 mcg by mouth daily. ??? citalopram (CELEXA) 20 mg Tablet Take 20 mg by mouth daily. Current Facility-Administered Medications for the 03/14/16 encounter (Office Visit) with Pam Chaidez APRN Medication Dose Route Frequency Provider Last Rate Last Dose ??? [COMPLETED] levonorgestrel (MIRENA) 20 mcg/24 hr intra-uterine device 1 Intra Uterine Device Intrauterine Once Pam Chaidez APRN 1 Intra Uterine Device at 03/14/16 1038 Allergies Allergen Reactions ??? Demerol [Meperidine] Anaphylaxis ??? Dilaudid [Hydromorphone (Bulk)] Hives Objective: BP 112/68 Pulse 90 Temp 37.1 ??C (98.7 ??F) (Temporal) Resp 14 Ht 175 cm (5' 8.9) Wt 85.7 kg (188 lb 15 oz) LMP 02/24/2016 (Approximate) SpO2 95% BMI 27.98 kg/m2 Urine screen negative. General: Appears healthy and well nourished. No apparent distress. Procedure: Prior to the start of this procedure, I confirmed the patient's identity, intended procedure and availability of equipment needed. Pelvic: Uterus is slightly R/V, normal size and contour. Speculum placed, cervix swabbed with iodine, and 3cc of lidocaine was injected on the face of the cervix. Tenaculum applied. Using sterile technique, the uterus was sounded to 8 cm. A Mirena IUD was inserted without difficulty. String trimmedto approx 3 cm. Pt tolerated the procedure well. Assessment: Appropriate IUD candidate Successfully inserted a Mirena IUD STI screening. Plan: IUD to be removed no later than 03/14/2021. Reviewed warning s/sx and encouraged Soraaron to call with any other concerns. Aware she can take Ibuprofen 800mg Q8 hrs PRN for discomfort. Reviewed monthlystring checks. Use back-up method x 1 week. Soraaron encouraged to return to the clinic for a string check in 4-6 weeks. GC/CT sent. Await results. 11 minutes of this 20 minute appointment, excluding 6 minutes performing the IUD insertion, were spent counseling Andree on the information above. PAM CHAIDEZ APRN 03/14/2016 documented in this encounter Plan of Treatment Upcoming Encounters Date Type Department Care Team (Late st Contact Info) Description 05/23/2024 [facility] [place] [address] Maite Malloy MD [facility] OBSTETRICS [place] [address] Scheduled Orders Name Type Priority Associated Diagnoses Orde r Schedule POCT urine Point of Care Testing Routine Encounter for IUD insertion Ordered: 03/14/2016 documented as of this encounter Procedures Procedure Name Priority Date/Time Associated Diagnosis Comments GC/CHLAMYDIA Routine 03/14/2016 10:38 AM EST Encounter for IUD insertion GC/CHLAM Routine 03/14/2016 10:38 AM EST Encounter for IUD insertion documented in this encounter Results * GC/Chlam (03/14/2016 10:38 AM EST) GC Gene Amp Negative Negative [facility] Comment: The only FDA approved specimen types for this assay are cervix, vagina, urethra and urine. GC Source Urine [facility] Chlamydia Gene Amp Negative Negative [facility] Comment: The only FDA approved specimen types for this assay are cervix, vagina, urethra and urine. Chlamydia Source Urine [facility] Urine specimen (specimen) 03/14/2016 10:38 AM EST 03/14/2016 12:09 PM EST Narrative Resulting Agency Comment Spec In Lab Richard Faust MD MICROBIOLOGY - GENER AL ORDERABLES Performing Organization Address City/State/[facility] Co de Phone Number [facility] [place] [phone] documented in this encounter Visit Diagnoses Diagnosis Encounter for IUD insertion- Primary Encounter for insertion of intrauterine contraceptive device IUD (intrauterine device) in place Presence of intrauterine contraceptive device documented in this encounter Administered Medications Inactive Administered Medications - up to 3 most recent administrations Medication Order MAR Action Action Date Dose Rate Site levonorgestrel (MIRENA) 20 mcg/24 hr intra-uterine device 1 Intra Uterine Device, Intrauterine, ONCE, 1 dose, On 03/14/16 at 1100, Routine Inserted 03/14/2016 10:38 AM EST 1 Intra Uterine Device 20-Other (document in comment section) documented in this encounter Care Teams Battery Charger Conveyor Line Relationship Specialty Start Date End Date Valencia Adhikari APRN [address] [place] [address] PCP - General 04/21/14 07/04/23 documented as of this encounter
--- OUTSIDE RECORDS SUMMARY | 2023-10-29 04:01 | XMS_ITS | Encounter Summary ---
Author Organization [facility] [place] [address] Care Team Providers Care Ship Erector Name Role Phone None Primary Care Provider Unavailabl e Encounter Details Date Type Department Care Team (Late st Contact Info) Description 12/12/2012 Telephone [place] [phone] Omayra Meredith LPN 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 Tobacco Use [...] Telephone Encounter - Omayra Meredith LPN - 12/17/2012 1:31 PM EDT Returning call to patient at which time message from Dr Avila was read to her. Patient agrees withplan of care. * Telephone Encounter - Omayra Meredith LPN - 12/17/2012 11:[address] Avila LT4 to be reduced to 200 mcg daily for TSH of 0.15. Called patient no answer left message on voice mail that dose is being reduced,rx to pharmacy and to please return my call to let me know she received this message. * Telephone Encounter - Omayra Meredith LPN - 12/17/2012 11:35 AM EDT Returning call to patient Needs to have LT4 refilled today is asking if dose needs to be changed. Taking 250 mcg daily. Called lab at [facility] for results. Received and forward to Dr avila. * Telephone Encounter - Omayra Meredith LPN - 12/12/2012 11:35 AM EDT Patient asking for order to go to [facility] to check thyroid has not been checked since of baby and was not able to go at beginning of November as baby was sick. Order faxed to [facility] documented in this encounter Plan of Treatment Upcoming Encounters Date Type Department Care Team (Late st Contact Info) Description 05/23/2024 [place] [address] Maite Malloy MD [facility] OBSTETRICS [place] [address] documented as of this encounter Visit Diagnoses Not on filedocumented in this encounter Care Teams Ship Erector Relationship Specialty Start Date End Date None None PCP - General 05/08/12 04/20/14 documented as of this encounter
--- OUTSIDE RECORDS SUMMARY | 2023-10-29 04:01 | XMS_ITS | Encounter Summary ---
Author Organization [facility] [place] [address] Care Team Providers Care Security Services Manager Name Role Phone Valencia Adhikari APRN Primary Care Provider [phone] Encounter Details Date Type Department Care Team (Latest Contact Info) Description 09/20/2014 - 09/20/2014 11:59 PM EDT Hospital Encounter [place] [phone] Kedar Santos MD [facility] [place] [address] Discharge Disposition: Home 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 Tobacco Use [...] End Date levothyroxine (SYNTHROID) 200 mcg Tablet Take 200 mcg by mouth daily. 12/21/2015 levothyroxine (SYNTHROID) 25 mcg Tablet Take 50 mcg by mouth daily. 12/21/2015 hydrOXYzine (ATARAX) 50 mg Tablet Take 50 mg by mouth 4 times daily as needed for Itching. 12/21/2015 busPIRone (BUSPAR) 5 mg Tablet Take 5 mg by mouth 2 times daily. 04/01/2015 documented as of this encounter Plan of Treatment Upcoming Encounters Date Type Department Care Team (Late st Contact Info) Description 05/23/2024 Hospital Encounter Birthing [facility] [place] [address] Maite Malloy MD [facility] DR OBSTETRICS [place] [address] documented as of this encounter Procedures Procedure Name Priority Date/Time Associated Diagnosis Comments FILM LIBRARY STORAGE ONLY DX ELBOW Routine 09/20/2014 12:00 AM EDT documented in this encounter Results * Film Library- Storage Only DX Elbow (09/20/2014 12:00 AM EDT) Narrative [facility] - 05/17/2017 11:27 AM EST This exam is for storage only and is auto-finalizing. Kedar Santos MD IMG FILM LIBRARY ORD ERABLES [place], [place] documented in this encounter Visit Diagnoses Not on filedocumented in this encounter Care Teams Security Services Manager Relationship Specialty Start Date End Date Valencia Adhikari APRN [address] [place] [address] PCP - General 04/21/14 07/04/23 documented as of this encounter
--- OUTSIDE RECORDS SUMMARY | 2023-10-29 04:01 | XMS_ITS | Encounter Summary ---
Author Organization [facility] Address [facility] [place] [address] Care Team Providers Care Feed Inspection Supervisor Name Role Phone Valencia Adhikari APRN Primary Care Provider [phone] Reason for Visit * Reason Comments Left Shoulder Pain DOI 09/06/16 * Consultation (Routine) - Closed Specialty Diagnoses / Procedures Referred By Contwillow t Referred To Contact Orthopaedics Diagnoses left shoulder pain Valencia Adhikari APRN [address] [place] [address] [facility] [address] [place] [id number] Referral ID Status Reason Start Date Expiration Date V isits Requested Visits Authorized [id number] Closed Consult, Test & Treat Connection Center 01/17/2017 01/17/2018 1 1 Encounter Details Date Type Department Care Team (Late st Contact Info) Description 02/06/2017 9:00 AM EDT [place] [phone] [facility] DR [place] [address] Left shoulder pain, unspecified chronicity 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 [...] Sign Reading Time Taken Comments Blood Pressure 108/67 02/06/2017 9:05 AM EDT Pulse 89 02/06/2017 9:05 AM EDT Temperature - - Respiratory Rate - - Oxygen Saturation - - Inhaled Oxygen Concentration - - Weight 89.8 kg (198 lb) 02/06/2017 9:05 AM EDT v erbal Height 172.7 cm (5' 8) 02/06/2017 9:05 AM EDT v erbal Body Mass Index 30.11 02/06/2017 9:05 AM EDT documented in this encounter Progress Notes * Kedar Santos MD - 02/06/2017 9:00 AM EDT Orthopedic Surgery Clinic Note Chief Complaint: Left shoulder pain, hand tingling. The patient is a 26 y.o. female who presents to see me at the request of Valencia Adhikari APRN for the above chief complaint. HPI: The patient is a 26-year-old [id number] female who comes in today complaining of left shoulder pain for 1 year's time. She suffered an injury at work about a year ago in January 2016 to her left shoulder. She did physical therapy for several months and then got better. She suffered anotherinjury where she states she bumped her left elbow in August 2016. She had a severe increase in her left shoulder pain which she described as global from the shoulder up to the side of her neck and down to her arm. She did several months of physical therapy once again and then she was seen by Dr. Brar who performed an injection which sounds like a possible subacromial injection of the left shoulder. She states at that did not help for about a week but then helped for 2 days and then that wore off. She is now back to baseline. She has not worked since August. 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 Pain is not relieved by odvv-lbf-rwpwnzi anti- inflammatory medications. No other prior injuries. Patient Active Problem List Diagnosis Code ??? Depression F32.9 ??? Hypothyroidism, postsurgical s/p thyroid cancer E89.0 ? ? 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 Left knee pain M25.562 ??? Intractable chronic migraine without aura G43.719 ??? IUD (intrauterine device) in place Z97.5 ??? Left shoulder pain M25.512 Past Medical History: Diagnosis Date ??? Anemia [...] MONITORING, SETUP performed by JUAN ESPARZA at [facility] OR ??? PRO THYROIDECTOMY, NYDIA, LTD NECK SURG 03/22/2011 THYROIDECTOMY, FOR MALIGNANCY, LIMITED NECK DISSECTION performed by JUAN ESPARZA at [facility] OR ??? TONSILLECTOMY 2010 ??? UPPER GASTROINTESTINAL ENDOSCOPY for IBS, celiac excluded ??? WISDOM TOOTH EXTRACTION Medications were reviewed with the patient today and are up to date. Family History: Negative for bleeding problems, blood clotting disorders, or problems with anesthesia. 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: Denies tobacco use, denies alcohol use except occasionally. 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 Imaging studies: MRI performed at outside facility reviewed including the report, However the images were not available today for my review. No x-rays were also available today for my review. The report describes a normal shoulder MR without any pathology noted. Physical Exam: Awake/Alert, NAD Left UE Exam: Near full range of motion of the left upper extremity with forward flexion 160??, external rotationis limited compared to the right side with 20?? actively. Internal rotation is slightly limited as well compared to the right side to the lower lumbar spine. 5 out of 5 strength with ER and IR with the arm at the side. She has ratcheting weakness throughout the left upper extremity but is able to get 5 out of 5 strength at times. EPL, FPL, interossei intact. Positive Neer, positive Camargo, positive Speed, positive Yergason. Tenderness to palpation throughout the left shoulder area without any focal tenderness. Medical decision making/Assessment: 26-year-old female who has left shoulder pain consistent with possible biceps tenosynovitis of the long head tendon and possible impingement syndrome. Given that she had an injection of the subacromial space that did not help I discussed potentially doing a biceps tendon long head sheath injection that would be ultrasound-guided. I also recommended having an injection of the glenohumeral joint atthe same time to attempt to bring her pain level down. I recommended renewing her course of physical therapy as she has not been doing this recently. I discussed that there is no surgery currently that I would recommend. Follow-up as needed. Plan: US guided biceps injection and fluoro guided GH injection, left shoulder. Kedar Santos MD MS Orthopaedic Surgery Pager: [phone] documented in this encounter Plan of Treatment Upcoming Encounters Date Type Department Care Team (Late st Contact Info) Description 05/23/2024 [place] [address] [facility] OBSTETRICS [place] [address] documented as of this encounter Results * XR Fluoro Guided Joint Injection Large Left (03/20/2017 3:21 PM EST) Anatomical Region Laterality Modality Left Radio Fluoroscop y Impressions 03/20/2017 4:16 PM EST Uneventful left glenohumeral injection under fluoroscopy. Resident/Fellow: None Attending: Dr. Amanda TOLEDO Procedure performed by Sally Toan, LAUNDRY CLERK Narrative 03/20/2017 4:16 PM EST HISTORY: Left shoulder pain, inject for diagnostic/therapeutic purposes. LEFT SHOULDER JOINT INJECTION UNDER FLUOROSCOPY TECHNIQUE: After an extensive conversation with the patient regarding risks and benefits, oral and written consent were obtained. ??A pre- procedural time-out was performed as per [facility] protocol. The patient was placed supine on [...] glenohumeral joint space. 2. ??PAIN SCORE: ??Before: -01/23 ??After: -01/23 3. Fluoroscopy time: 0.10 minutes 4. Medications: ??Lidocaine 1% - <5 ml, for subcutaneous anesthesia ??Ropivacaine HCL ??0.5% - 3 ml ??Triamciolone Acetonide ??- 40 mg COMPLICATIONS: ??None immediate. POST-PROCEDURE CARE: Information regarding monitor of infection, post- procedural pain and management of steroid flare were reviewed with patient. Procedure Note Sally Joya, LAUNDRY CLERK - 03/20/2017 HISTORY: Left shoulder pain, inject for diagnostic/therapeutic purposes. LEFT SHOULDER JOINT INJECTION UNDER FLUOROSCOPY TECHNIQUE: After an extensive conversation with the patient regardingrisks and benefits, oral and written consent were obtained. A pre- proceduraltime-out was performed as per [facility] protocol. The patient was placed supine on [...] glenohumeral joint space. 2. PAIN SCORE: Before: 9-10/10 After: 9-10/10 3. Fluoroscopy time: 0.10 minutes 4. Medications: [...] pre- procedural time-out was performed as per [facility] protocol. The patient was placed supine on [...] pre- procedural time-out was performed as per [facility] protocol. The patient was placed supine on [...] the bicepstendon sheath. 2. PAIN SCORE: Before: 10 After: 12/24 3. Medications: Lidocaine 1% - [...] I performed this procedure. Kedar Santos MD IMG PROC ORDERABL ES documented in this encounter Visit Diagnoses Diagnosis Left shoulder pain, unspecified chronicity Left shoulder pain, unspecified chronicity documented in this encounter Care Teams Feed Inspection Supervisor Relationship Specialty Start Date End Date Valencia Adhikari APRN [address] [place] [address] PCP - General 04/21/14 07/04/23 documented as of this encounter
--- OUTSIDE RECORDS SUMMARY | 2023-10-29 04:01 | XMS_ITS | Encounter Summary ---
Author Organization [facility] [place] [address] Care Team Providers Care Wildlife Conservation Professor Name Role Phone Valencia Adhikari APRN Primary Care Provider [phone] Encounter Details Date Type Department Care Team (Latest Contact Info) Description 10/23/2016 - 10/23/2016 11:59 PM EDT Hospital Encounter [place] [phone] Kedar Santos MD [facility] [place] [address] Discharge Disposition: Home 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 Tobacco Use [...] Contact Info) Description 05/23/2024 [facility] [place] [address] Maite Malloy MD [facility] DR OBSTETRICS [place] [address] documented as of this encounter Procedures Procedure Name Priority Date/Time Associated Diagnosis Comments FILM LIBRARY STORAGE ONLY MR SHOULDER Routine 10/23/2016 12:00 AM EDT documented in this encounter Results * Film Library- Storage Only MR Shoulder (10/23/2016 12:00 AM EDT) Narrative RAD - 05/17/2017 11:16 AM EST This exam is for storage only and is auto-finalizing. Kedar Santos MD IMG FILM LIBRARY ORD ERABLES [place], [place] documented in this encounter Visit Diagnoses Not on filedocumented in this encounter Care Teams Wildlife Conservation Professor Relationship Specialty Start Date End Date Valencia Adhikari APRN [address] [place] [address] PCP - General 04/21/14 07/04/23 documented as of this encounter
--- OUTSIDE RECORDS SUMMARY | 2023-10-29 04:01 | XMS_ITS | Encounter Summary ---
Author Organization [facility] [place] [address] Care Team Providers Care Funeral Home Assistant Name Role Phone Valencia Adhikari APRN Primary Care Provider [phone] Reason for Visit * Reason Onset Date Comments Other 12/21/2015 Encounter Details Date Type Department Care Team (Late st Contact Info) Description 12/21/2015 Telephone Neurology at [facility] [place] [phone] Neo Pleitez MD [facility] [place] [address] Other 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 Tobacco Use Types Packs/Day [...] encounter Miscellaneous Notes * Telephone Encounter - Estelle Blanco RN - 12/21/2015 2:46 PM EDT Called patient back and gave her the results and also informed her that Dr Pelayo wanted her to have blood work done. She asks that I send the order to [facility] lab and I will do that. She will call toschedule her MRI. * Telephone Encounter - Jeanette Doss - 12/21/2015 1:54 PM EDT Patient called looking for results from labs from this morning Please call [phone] Thanks documented in this encounter Plan of Treatment Upcoming Encounters Date Type Department Care Team (Late st Contact Info) Description 05/23/2024 Hospital En[place] [address] Maite Malloy MD [facility] DR OBSTETRICS [place] [address] documented as of this encounter Visit Diagnoses Not on filedocumented in this encounter Care Teams Funeral Home Assistant Relationship Specialty Start Date End Date Valencia Adhikari APRN [address] [place] [address] PCP - General 04/21/14 07/04/23 documented as of this encounter
--- OUTSIDE RECORDS SUMMARY | 2023-10-29 04:01 | XMS_ITS | Encounter Summary ---
Author Organization Formerly [facility] [place] [address] Care Team Providers Care Lease Analyst Name Role Phone None Primary Care Provider Unavailabl e Encounter Details Date Type Department Care Team (Late st Contact Info) Description 04/15/2014 Orders [place] [phone] Joshua Padron MD [facility] [place] [address] 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 Tobacco Use Types Packs/Day Years [...] Contact Info) Description 05/23/2024 Hospital [place] [address] Maite Malloy MD [facility] OBSTETRICS AND GYNECOLOGY [place], [place] [id number] documented as of this encounter Procedures Procedure Name Priority Date/Time Associated Diagnosis Comments FILM LIBRARY STORAGE ONLY DX KNEE Routine 04/15/2014 2:37 PM EST documented in this encounter Results * Film Library- Storage only DX Knee (04/15/2014 2:37 PM EST) Anatomical Region Laterality Modality Other 04/15/2014 2:37 PM EST Narrative 04/17/2014 2:37 PM EST This is a Non-reportable exam Procedure Note LOLIS, UNSIGNED REPORT - 04/17/2014 This is a Non-reportable exam Joshua Padron MD IMG FILM LIBRARY ORD ERABLES documented in this encounter Visit Diagnoses Not on filedocumented in this encounter Care Teams Lease Analyst Relationship Specialty Start Date End Date None None PCP - General 05/08/12 04/20/14 documented as of this encounter
--- OUTSIDE RECORDS SUMMARY | 2023-10-29 04:01 | XMS_ITS | Encounter Summary ---
Author Organization [facility] [place] [address] Care Team Providers Care Tier Lift Operator Name Role Phone Valencia Adhikari APRN Primary Care Provider [phone] Encounter Details Date Type Department Care Team (Latest Contact Info) Description 09/06/2016 - 09/06/2016 11:59 PM EDT Hospital En[place] [phone] Kedar Santos MD [facility] [place]OPAED[place] [address] Discharge Disposition: Home 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 Tobacco Use [...] Info) Description 05/23/2024 Hospital Encounter Birthing [facility] [place] [address] Maite Malloy MD [facility] DR OBSTETRICS [place] [address] documented as of this encounter Procedures Procedure Name Priority Date/Time Associated Diagnosis Comments FILM LIBRARY STORAGE ONLY DX ELBOW Routine 09/06/2016 12:00 AM EDT documented in this encounter Results * Film Library- Storage Only DX Elbow (09/06/2016 12:00 AM EDT) Narrative RAD - 05/17/2017 11:18 AM EST This exam is for storage only and is auto-finalizing. Kedar Santos MD IMG FILM LIBRARY ORD ERABLES [place], [place] documented in this encounter Visit Diagnoses Not on filedocumented in this encounter Care Teams Tier Lift Operator Relationship Specialty Start Date End Date Valencia Adhikari APRN [address] [place] [address] PCP - General 04/21/14 07/04/23 documented as of this encounter
--- OUTSIDE RECORDS SUMMARY | 2023-10-29 04:01 | XMS_ITS | Encounter Summary ---
Author Organization [facility] Address [facility] [place] [address] Care Team Providers Care Tool Design Draftsperson Name Role Phone Valencia Adhikari APRN Primary Care Provider [phone] Reason for Visit * Consultation (Routine) - Closed Specialty Diagnoses / Procedures Referred By Lamont riggins Referred To Contact Neurology Diagnoses BILATERAL HAND PARESTHESIA Procedures Evaluate and Treat StressJoceline cardoza APRN [address] [place] [address] [facility] Neurology [address] [place] [id number] Referral ID Status Reason Start Date Expiration Date V isits Requested Visits Authorized [id number] Closed Consult, Test & Treat Connection [facility] 11/20/2016 11/20/2017 1 1 Encounter Details Date Type Department Care Team (Latest Contact Info) Description 12/01/2016 10:00 AM EDT [place] [phone] Isaac Osorio MD [facility] [place] [address] Paresthesias in left hand; Paresthesias in right hand 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 Tobacco Use Types Packs/Day Years [...] Sign Reading Time Taken Comments Blood Pressure 108/72 12/01/2016 10:00 AM EDT Pulse 88 12/01/2016 10:00 AM EDT Temperature - - Respiratory Rate - - Oxygen Saturation - - Inhaled Oxygen Concentration - - Weight 89.8 kg (198 lb) 12/01/2016 10:00 AM EDT Height 172.7 cm (5' 8) 12/01/2016 10:00 AM EDT reported Body Mass Index 30.11 12/01/2016 10:00 AM EDT documented in this encounter Progress Notes * Isaac Osorio MD - 12/01/2016 10:00 AM EDT Andree Hummel is a pleasant 26-year-old female referred for consultation at the request of Joceline Bustillo and Valencia Adhikari for evaluation of bilateral hand paresthesias and perceived weakness. She also has intermittent occasional numbness in her toes. She denies any radicular symptoms from her neck. She denies any low back radicular symptoms. Patient's past medical history is remarkable for depression, left shoulder tendonitis, status post thyroidectomy for thyroid cancer with subsequent hypothyroidism, and anti-Estuardo A and B antibodies. She also has some history of left knee pain. She has 1 child age 4 with ITP. She quit smoking 2 months ago. She drinks alcohol occasionally. She is a single mother and lives in [place], [place]. She denies any neck pain. She denies any bowel or bladder dysfunction. She has no shortness of breath, chest pain. She does report recently having a droopy right face, but certainly there are no signs of this today. On exam, she is bright and alert with a normal mental status. Cranial nerves II-XII were intact. Her sensory exam was normal. Deep tendon reflexes were normal and symmetric throughout with no signs of myelopathy. She had no focal weakness, normal tone, and no atrophy. Cerebellar testing was all normal. She underwent nerve conduction studies/EMG in both upper extremities, and all the values were normal. EMG showed no evidence of cervical radiculopathy or plexopathy. The patient appears to have a normal neurological exam. She could have some clinical carpal tunnel syndrome, and a trial of wrist splints might be useful. The recent droopy right face could be the manifestations of a Schneider's palsy, but there is no evidence of this today. She would be unlikely to be a vasculopath. If not done so, I would check a Lyme titer. An imaging study of her brain such as an MRI might be reasonable, but I will leave this up to Valencia Adhikari and Joceline Bustillo. All of her questions are answered. Thank you for this consultation. documented in this encounter Plan of Treatment Upcoming Encounters Date Type Department Care Team (Late st Contact Info) Description 05/23/2024 [place] [address] Maite Malloy MD [facility] [address] [place] [address] documented as of this encounter Visit Diagnoses Diagnosis Paresthesias in left hand Disturbance of skin sensation Paresthesias in right hand Disturbance of skin sensation documented in this encounter Care Teams Tool Design Draftsperson Relationship Specialty Start Date End Date Valencia Adhikari APRN [address] [place] [address] PCP - General 04/21/14 07/04/23 documented as of this encounter
--- OUTSIDE RECORDS SUMMARY | 2023-10-29 04:01 | XMS_ITS | Encounter Summary ---
Author Organization [facility] Address [facility] [place] [address] Care Team Providers Care Diabetes Trainer Name Role Phone None Primary Care Provider Unavailabl e Reason for Visit * Reason Comments Laboring Encounter Details Date Type Department Care Team (Latest Contact Info) Description 09/13/2012 12:09 AM EDT - 09/14/2012 12:06 PM EDT Hospital [place] [id number] Mely Mccord MD [facility] [place] [address] Hypothyroidism (Primary Dx); Abnormal antibody titer; Depression; History of loss in prior , currently ; Hypothyroidism, postsurgical; Obesity (BMI 30.0-34.9); Threatened labor, antepartum Discharge Disposition: Home 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 Tobacco Use [...] Sign Reading Time Taken Comments Blood Pressure 106/56 09/14/2012 8:00 AM EDT Pulse 65 09/14/2012 8:00 AM EDT Temperature 36.6 ??C (97.9 ??F) 09/14/2012 8:00 AM ED T Respiratory Rate 18 09/14/2012 8:00 AM EDT Oxygen Saturation 96% 09/14/2012 8:00 AM EDT Inhaled Oxygen Concentration - - Weight - - Height - - Body Mass Index - - documented in this encounter Discharge Instructions * Discharge Instructions* Emeli Knight V RN - 09/14/2012 11:38 [place] [address] [facility] to contact OB doctor [phone] to contact family doctor to contact dedicated owner operator Andree Wallis-Tamara @ 09/14/12 @ 11:37 AM Following your visit to [facility] Triage Reason for Visit: Chief Complaint Patient presents with ??? Laboring Gestation - under 37 weeks Notify your provider if: You are feeling any cramping sensations in your abdomen more than 20 minutes apart [place] Contractions usually are irregular may get less painful or go away with walking, resting, or any other activities usually felt in the front and do not radiate to the back labor contractions may start irregular in frequency, then become regular and more frequent usually start in the front and radiate to the back. Some women experience pelvic pressure or back pain that may come and go. Resting, walking, and other activities will not take them away or may even make them worse If you are one month before your due date: any abdominal, back or pelvic pressure or pain that comes and goes as much or more than 4 times in an hour. You feeling a leakage of fluid may be a small leak of fluid may be a large gush note the time it started leaking, amount, and color of fluid (clear, yellow, green, pink, red) You notice vaginal bleeding spotting is normal following a vaginal exam in your doctor's or dedicated owner operator's office you should not bleed as much as a period You have noticed a marked decrease in your baby's movement refer to your kick count instructions in the Your Journey book Your baby should move at least 10 times in 2 hours You have had any direct trauma to your abdomen such as a car accident, fall, or impact Call your doctor or dedicated owner operator if you have the following symptoms: Headache Visual disturbance/spots in front of your eyes/blurry vision Pain under your ribs toward the right side of your abdomen Sudden swelling to your legs or any increase in swelling to your arms and face Pain or bleeding on urination A temperature at or above 100.4F Nausea or vomiting Flu-like symptoms: cough, fever, muscle aches General Instructions Drink plenty of non-caffeinated fluids throughout the day to prevent dehydratio Keep your regularly scheduled doctor or dedicated owner operator appointment Your medications: Current Facility-Administered Medications on File Prior to Encounter Medication Dose Route Frequency Provider Last Rate Last Dose ??? morphine 10 mg/mL carpuject ??? promethazine (PHENERGAN) 25 mg/mL injection Current Outpatient Prescriptions on File Prior to Encounter Medication Sig Dispense Refill ??? ondansetron (ZOFRAN-ODT) 4 mg oral disintegrating tablet Take 1 tablet by mouth every 8 hours as needed for Nausea. 30 tablet 0 ??? levothyroxine (SYNTHROID) 125 mcg tablet Take 2 tablets by mouth nightly. 30 tablet 2 ??? bkixavmtvv-fbvvwlietqgay-buxallvf (FIORICET, ESGIC) per tablet Take 1 tablet [...] W-CA,FE,FA,<1MG, ( VITAMIN ORAL) Take by mouth. Special instructions/Follow-up Care: Space for patient-specific care or instructions If you have any other questions or concerns please call your provider at their office number * Patient Instructions* Katelynn Baltazar - 09/14/2012 11:34 AM EDT -Please make a follow-up appointment to be seen in the clinic this week -Please take it easy with your activity level: avoid strenuous activity, sexual intercourse, long shopping trips. documented in this encounter Medications at Time [...] of this encounter Progress Notes * Katelynn Baltazar - 09/14/2012 11:09 AM EDT Resident progress note Subjective: Reports continued abdominal discomfort that is generalized on her abdomen and into her back - the discomfort feels like a pressure that is constant and also feels like pressure into her bowels and bladder. The discomfort is some alleviated when she is standing up or walking around. movement has been present. No LOF/vaginal bleeding. Reports decreased appetite with slight nausea but denies vomiting. Drinking lots of fluid. PE: Last value Range last 24 hrs Temperature Temp: 36.6 ??C (97.9 ??F) Temp: [36.6 ??C (97.9 ??F)-36.8 ??C (98.2 ??F)] Heart Rate Heart Rate: 65 Heart Rate: [54-65] Blood Pressure BP: 106/56 mmHg BP: (98-106)/(46-56) Respiratory Rate Resp: 18 Resp: [18-20] SpO2 SpO2: 96 % SpO2: [96 %-97 %] Art BP BP (Arterial Line): -- Gen: NAD, irritable, in no acute distress Fundus: non-tender, gravid VE: 2/90/-3/midposition, head well applied, well developed lower uterine segment Labs: 1 hour GTT repeat yesterday 83 Last US: 09/04/12 cephalic, anterior, UDAY 19.6, EFW 1998g, >95% EFM: Category I, Baseline 130bpm, moderate variability, +accels to 160, -decels [place]: q2-3 minute contractions vs irritability A/P 22 y.o. year old female, GBS neg, with an ZAYDA of 11/12/2012, by Ultrasound who is at 31w3d weeks gestation admitted for threatened labor. Beta complete 09/04/12. No magnesium given in this hospitalization. Her cervix is stable over the last four exams, > 24 hours, but she was admitted over concern for advanced dilation and well developed MAXIMUS at this gestational age. Given that she is clinically stable without notable increase in her discomfort, with reactive NST today and no cervical change in over 24 hours, she is in stable condition to be discharged home. If she experiences any worsening of her discomfort, LOF, or vaginal bleeding, she is advised to call. She will call in to be seen in clinic this week. The patient is in agreement with the plan. Advised to avoid strenuous activity, sexual intercourse, long shopping trips. Additional Issues: 1. 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 Managed by endocrine. Synthroid dose recently increased from 200mcg QD to 250mcg QD as TSH was most recently 34.90. Continue 250mcg QD. Repeat TSH planned for 10/05/12 - 1 month after dose change. Discussed with Dr. Cassidy, PGY-4 KATELYNN BALTAZAR MD, PGY-2 09/14/2012 * Mely Klein MD - 09/14/2012 7:49 AM EDT Resident progress note 24 hour events: rechecked yesterday pm, unchanged exam Subjective: Patient reports her contraction discomfort continues. She was very uncomfortable and emotionally irritable last night and could not sleep, reported that she has struggled with insomnia throughout this . +FM, -LOF, -VB. Denies n/v/diarrhea. Appetite is low as it has been throughout . She does not think that her emotional irritability is related to hypothyroidism, and she also declines further psychiatry input and says she feels stable with the plan she made with Dr. Griffith a couple of weeks ago PE: Last value Range last 24 hrs Temperature Temp: 36.7 ??C (98.1 ??F) Temp: [36.7 ??C (98.1 ??F)-36.8 ??C (98.2 ??F)] Heart Rate Heart Rate: 65 Heart Rate: [54-65] Blood Pressure BP: 98/56 mmHg BP: (98-105)/(46-56) Respiratory Rate Resp: 20 Resp: [18-20] SpO2 SpO2: 97 % SpO2: [96 %-97 %] Art BP BP (Arterial Line): -- Gen: NAD, holding uterus and breathing with contractions Fundus: non-tender, moderate ctx palpated. No RUQ tenderness VE: /-3/midposition, head well applied, well developed lower uterine segment (09/13/12) Labs: 1 hour GTT repeat yesterday 83 Last US: 09/04/12 cephalic, anterior, UDAY 19.6, EFW 1998g, >95% A/P 22 y.o. year old female, GBS neg, with an ZAYDA of 11/12/2012, by Ultrasound who is at 31w3d weeks gestation admitted for threatened labor. Her cervix is stable over the last three exams, > 24 hours, but is concerning for advanced dilation and well developed MAXIMUS at this gestational age. She is admitted for observation of and maternal status, and will consider starting magnesium for neuroprotection and tocolysis if her cervix changes. Her main problem in this does seem to be emotional lability, borderline personality traits, and insomnia (see evaluation by Dr. Griffith), and her psychiatric state is contributing to her discomfort and poor coping. Heart Rate Assessment: Category 1 surveillance: NST daily, continuous if discomfort increases GBS/RH/HIV Management: GBS Management: None Required Mag status: mag naive Steroid status & Plan: Beta complete 09/04/12 Consultations: none at present Additional Issues: 1. 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 Managed by endocrine. Synthroid dose recently increased from 200mcg QD to 250mcg QD as TSH was most recently 34.90. Continue 250mcg QD. Repeat TSH planned for 10/05/12 - 1 month after dose change. 2. Marijuana use - urine tox positive, as it has been throughout Mely Klein MD PGY-4 #[id number] * Valencia Meehan RN - 09/13/2012 10:32 PM EDT 2210: RN called to pt. Room. Synthroid given. Pt reports worsening pain, on EFM. MD Francois notified. IN at bedside with RN. Discussed pain mgmt./rest mgmt. Options. Pt. To get ambien 5-10mg as appropriate. Will continue to monitor. To remove pt. From monitor when pt. Reaches 20. 2230: Ambien given, family to visit patient, to take pt for WCR. 0000: Pt. Remains awake, second Ambien given per MAR. Discussed pt. Sleep hygiene. Discussed soothing environment. Few ctx. Palpate mild. Pt. Declines spa, tub, shower, hot pack, tylenol, and other nonpharmacologic pain mgmt strategies. States she has not slept x2 weeks. Family states Andree has not slept well since . When asked what she would do at home, states, I would have a cigarette and a beer and pass out. Discussed patch with patient. Pt. Declines. To give ambien 30 to work. 0115: made aware. In to see pt. Pt. Reports worsening pain, insomnia x2 weeks. Pt. On EFM. FHT WDL and toco shows irr. Mild ctx. Palpable. 0145: MD Francois made aware of EFM. Discussed medical management and plan. TRE Robbins consulted. MD Francois to consult with MD Gonzales. 0230: MD Francois confers with MD Klein that pt. Will have SVE, if unchanged, will reiterate nonpharmacologic pain management strategies. If changed, will make plan. MD Francois and TRE Meehan in at bedside. Pt. Appears asleep. Monitor turned off per MD Francois. Pt. Not to be disturbed unless calls. * Penny Lux MD - 09/13/2012 2:53 PM EDT 09/13/12 1448 Nonstress Test, Fetus A Baseline Rate 135 bpm Variability 6-25 BPM Accelerations Present Decelerations None Contraction Frequency irritability Nonstress Test Interpretation Reactive <32 week: two 10 bpm accelerations lasting 10 seconds Overall Impression Reassuring for gestational age NST Times NST Start Time 1121 NST Stop Time 1214 I personally reviewed the FHR Tracing and agree with the Resident???s interpretation. Penny Lux MD * Estelle Smith RN - 09/13/2012 10:11 AM EDT Office of Care Management (OCM) / Clinical [facility] (CRC)/ Initial Assessment Discussed patient with Provider Team and in multidisciplinary discharge-planning rounds. Reviewed record and interviewed patient. Introduced/reviewed CRC role and services accepted. REASON for HOSPITALIZATION: Threatened labor, antepartum . Re-admission after discharge home for same diagnosis on 09/08/12 PMH : Andree's Medical history includes Anxiety, depression, Irritable bowel syndrome, Hypothyroidism, asthma, anemia, migraines, 2 early losses, labor this , marijuana usethroughout . TIFFANIE on admission presumptive + for marijuana, opiates and barbiturates PREVIOUS FUNCTIONAL STATUS: Active, alert, Not employed. Plan was limited activity CURRENT FUNCTIONAL STATUS: Same. Bedrest, bathroom privileges SOCIAL / FAMILY SUPPORTS: Living with her mother currently. Relationship with FOB off. Loss of job.Seen by SHELLFISH MEAT SEPARATOR OPERATOR 7 days ago during last admission. Referred again for social work support. ADVANCE DIRECTIVES: None HEALTH /PRESCRIPTION COVERAGE: Health Plans, [facility] Under her mother's plan CURRENT HOME/COMMUNITY SERVICES/EQUIPMENT: DME: None Home Health Agency: Connected with [facility]. Referred to [facility] for childbirth education, and free food,diapers, car seat assistance. Other: N/A SHELLFISH MEAT SEPARATOR OPERATOR REFERRAL: Notified SHELLFISH MEAT SEPARATOR OPERATOR - for Support/Financial/Medication Assistance; See SHELLFISH MEAT SEPARATOR OPERATOR notes for further needs. PRIMARY CARE PHYSICIAN: None None None POTENTIAL DISCHARGE NEEDS: Education. ? [employer] location manager PATIENT/FAMILY EDUCATION NEEDS: labor, preparation for childbirth ANTICIPATED BARRIERS TO DISCHARGE: None TRANSPORTATION @ D/C: Mother (who is employed at [facility]) PLAN: CRC will continue to monitor progress, follow for continuity of care and assist with discharge planning while hospitalized. . * Tavia Chan RN - 09/13/2012 8:32 AM EDT Patient appears comfortable, even respirations and non labored. Resting on right side with eyes closed. Mom looked up, but will not wake patient as she had stated earlier that she had not slept well.Will re-check in on patient in a little while. 1640: patient had periods earlier if increased comfort but recently states that her belly pain feels worse again. Palpates mild irregular UC's. Patient wincing and appears uncomfortable. EFm applied, FHT's 145. Dr. Klein informed and made aware. Patient has not eaten well today, ate some breakfast but nauseated and did not eat anything for lunch. Able to drink and tolerate fluids well. No bleeding/leaking of fluid. Abdominal pain is in lower abdomen, and patient states she gets little break. Positive support given, and encouragement. * Maite Marks MD - 09/13/2012 6:54 AM EDT Resident progress note Patient reports her contraction discomfort has not really changed, though she was able to relax a bit with morphine/phenergan and sleep a bit. +FM, -LOF, -VB. PE: BP 113/71 Pulse 81 Temp(Src) 36.6 ??C (97.9 ??F) (Oral) Resp 20 SpO2 99% LMP 02/21/2012 Gen: NAD Fundus: non-tender VE: 290/-3/midposition, head well applied, well developed lower uterine segment A/P 22 y.o. year old female, GBS neg, with an ZAYDA of 11/12/2012, by Ultrasound who is at 31w3d weeks gestation being admitted for threatened labor. Her cervix is stable over the last three exams/nearly 24 hours, but is concerning for advanced dilation and well developed MAXIMUS at this gestational age. She is admitted for observation of and maternal status, and will consider starting magnesium and tocolysis if her cervix changes. Labor State: threatened labor Delivery indications: progressive labor Heart Rate Assessment: Category 1 surveillance: NST daily, continuous if discomfort increases GBS/RH/HIV Management: GBS Management: None Required Mag status: mag naive Steroid status & Plan: Beta complete 09/04/12 Consultations: none at present Additional Issues: 1. 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 Managed by endocrine. Synthroid dose recently increased from 200mcg QD to 250mcg QD as TSH was most recently 34.90. Continue 250mcg QD. Repeat TSH planned for 10/05/12 - 1 month after dose change. 2. Marijuana use - urine tox positive, as it has been throughout Mely Klein MD PGY-4 #[id number] MFM attending note I saw and evaluated the patient. I agree with the findings and the plan of care as documented in Dr. Klein's note. The patient reports feeling uncomfortable still. She has contractions, but no leaking of fluid or bleeding. She reports good activity. My physical exam confirms and/or revises Dr. Klein's exam. afebrile, vital signs stable. Nonstress test: Documented elsewhere Abdomen: gravid, soft, mildly tender Ext: no edema Impression: contractions with ripe cervical examination Reassuring testing to date Macrosomia Plan: Continue hospitalization given ripeness and dilation of the cervix. Consider tocolysis and steroids if labor is more likely Tdap GCT Maite Marks MD * Carmen Cisneros RN - 09/13/2012 5:28 AM EDT Pt in triage at 2351 for question of labor, pt complain of 9/10 contraction pain which started at 2130 and progressively became more painful and increasing in frequency. Pt also states she feels she may have broken her water. Dr. Yancey at bedside, speculum exam revealed -pooling, - nitrazine, - ferning, vaginal exam without change from previous exam (/high). Vertex confirmed by ultrasound.Pt admitted for observation to 8W ( eDH not reflecting admission, pt placement notified and RN redirected to Programer at [phone]. Pt accepted into eDH at 0500 and charting initiated). Labs drawn, #18 heplock inserted right hand. Pt requests pain medication. Morphine and phenergan given per order. Mother at bedside, supportive and involved in pt care. Pt okay to come off monitor at 0330 per . documented in this encounter H&P Notes * Mely Mccord MD - 09/13/2012 5:36 AM EDT Obstetrical Admission Note Referring Hospital: N/A Referring Provider: N/A Initial Care Provider (if early referral or co-managed by [facility]): [facility] Chief Complaint: Andree Hummel was admitted today secondary to threatened labor. Andree Hummel is a 22 y.o. year old female, GBS neg, with an ZAYDA of 11/12/2012, by Ultrasound who is at 31w3d weeks gestation. She was recently hospitalized for threatened labor and discharged with a stable cervix at 2/50 on 09/08/12. During that admission she was made steroid complete. She stated that she was seen in clinic today and her cervix was checked and found to be 2/90, and she began having painful contractions this afternoon, which initially went away, ky returned this evening around 18:00. These contractions are different from what she had been experiencing previously, and felt to be across her abdomen. She also had a gush of fluid this evening,though no continued leaking. No bleeding, normal FM. She has been keeping well-hydrated and denies F/C/N/V, dysuria, diarrhea. Her course has been complicated by the followin. Reported 20 week prior loss 2. 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 Managed by endocrine. Synthroid dose recently increased from 200mcg QD to 250mcg QD as TSH was most recently 34.90. 3. Migraines 4. Depression - has seen Dr. Griffith, declined meds during 5. Anti-Estuardo A&B antibodies 6. Obesity (BMI 30-34.9) 7. Marijuana use Date Steroid Complete: 09/04/2012 GBS status: negative (09/03/2012) Mag naive. Review of Systems 10 point ROS negative except as per HPI Obstetric Review of Systems Total Weight Gain this 9.843 kg (21 lb 11.2 oz) Movement: normal Contractions: regular, every 5 minutes Leaking: ?gush Bleeding; none now Preeclampsia signs and symptoms: None No resolved problems to display. Active Hospital Problems Diagnoses ??? Threatened labor, antepartum ??? , supervision of, high-risk Resolved Hospital Problems Diagnoses Date Resolved Active Non-Hospital Problems Diagnoses ??? Obesity (BMI 30.0-34.9) ??? History of loss in prior , currently ? ? Anti-Estuardo A&B antibodies ??? Hypothyroidism, postsurgical ??? Migraine ??? Depression Past Medical History Diagnosis Date ??? Migraine 02/23/2011 None in 3-4 years ??? Anxiety sees therapist ??? Irritable bowel syndrome 2009 ulcers ??? Asthma Triggers are cold, exercise. Used steroids with episodes of bronchitis.. Asymptomatic for a year Intubated once when 18 months with bronchiolitis ??? Hypothyroidism ??? Anemia not on meds ??? Depression 02/23/2011 not on meds or in counseling ??? Varicella ??? Other and unspecified ovarian cysts 2008 ??? Chlamydia 2010 ??? Knee dislocation bilateral, multiple events Past Surgical History Procedure Date ??? Thyroidectomy, malig, ltd neck surg 03/22/2011 THYROIDECTOMY, FOR MALIGNANCY, LIMITED NECK DISSECTION performed by JUAN ESPARZA at [facility] MAIN OR ??? Somatosensory test, any/all per. nerves, trunk or head 03/22/2011 FACIAL NERVE MONITORING, SETUP performed by JUAN ESPARZA at [facility] MAIN OR ??? [place] tooth extraction ??? Upper gastrointestinal endoscopy for IBS, celiac excluded ??? Colonoscopy found polyps ??? Tonsillectomy 2010 OB History Grav Para Term Abortions TAB SAB Ect Mult Living 3 2 2 # Outc Date GA Lbr Harshal/2nd Wgt Sex Del Anes PTL Lv 1 2006 7w0d 2 2010 20w0d Comments: No care; delivered fetus at home; states she disposed of remains herself; no medical care 3 CUR Prior to Admission Medications Prescriptions prior to admission Medication Sig Dispense Refill ??? ondansetron (ZOFRAN-ODT) 4 mg oral disintegrating tablet Take 1 tablet by mouth every 8 hours as needed for Nausea. 30 tablet 0 ??? levothyroxine (SYNTHROID) 125 mcg tablet Take 2 tablets by mouth nightly. 30 tablet 2 ??? hnnmpwhrie-ieujemwbjtkzv-qfgezwcg (FIORICET, ESGIC) per tablet Take 1 tablet [...] W-CA,FE,FA,<1MG, ( VITAMIN ORAL) Take by mouth. Allergies Allergies Allergen Reactions ??? Demerol (Meperidine) Anaphylaxis ??? Dilaudid (Hydromorphone (Bulk)) Hives Family History Problem Relation Age of Onset ??? Thyroid Disease Sister ??? * Brother dyspraxia ??? NOS GENETIC SYNDROMES Sister possible LCHAD deficiency 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 Occupational History ??? unemployed 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 Main Topics ??? Smoking status: Current Some Day Smoker -- 4 years Types: Cigarettes Last Attempt to Quit: 03/14/2012 ??? Smokeless tobacco: Never Used ??? Alcohol Use: No ??? Drug Use: Yes Special: Marijuana last smoked THC more than a month ago. ??? Sexually Active: Yes -- Male partner(s) Immunization History There is no immunization history on file for this patient. Last Set of Vitals: BP 113/71 Pulse 81 Temp(Src) 36.6 ??C (97.9 ??F) (Oral) Resp 20 SpO2 99% LMP 02/21/2012 Physical Exam Gen: AAOx3, appears very uncomfortable during contractions Cardio: nl rhythm, S1, S2, no M/C/R/G Pulm: CTA BL, no W/C/R Abd: +BS, soft, NT, ND Ext: warm, well-perfused Uterine Size: S=D Sterile Speculum: no pooling of fluid seen, Nitrizine test is negative, Ferning test is negative Cervix Exam: Dilation: 2 (09/12/12 2356) Effacement: 90 Station: High -4 Position: Mid-Position Consistency: Soft Guzman Score: 7 OB Examiner: dr. yancey Pelvis: average Presentations: Cephalic Heart Rate Interpretation: FHR Fetus A: Baseline Rate: 145 bpm (09/13/12 0523) Variability: Moderate Accelerations: Present Mode: Continuous;External US Decelerations: None Contraction Frequency: occ Nonstress Test Interpretation: Reactive <32 week: two 10 bpm accelerations lasting 10 seconds Overall Impression: Reassuring for gestational age Comments: dr yancey reviewed strip Record Review Labs Lab Results Component Value Date ABORH A Pos 09/03/2012 HCT 34.0 09/03/2012 HGB 11.9 09/03/2012 MCV 97.7* 09/03/2012 No results found for this basename: GLUCDOSE, GLUCBASELINE, [id number], LABGLUC2, LABGLUC3, Lab Results Component Value Date GBSSCREEN Neg 09/03/2012 Most Recent Ultrasound Date: 09/04/12 GA at US: 30.1wks EFW: 1998g <95%tile Growth large for gestational age Amniotic fluid volumenormal Placenta anterior Presentation vertex Assessment & Plan 22 y.o. year old female, GBS neg, with an ZAYDA of 11/12/2012, by Ultrasound who is at 31w3d weeks gestation being admitted for threatened labor. Her cervix is stable from this afternoonin clinic, but she is experiencing painful contractions and will be monitored overnight for cervical change. Morphine/phenergan for pain. ?? Labor State: threatened labor ?? Delivery indications: progressive labor ?? Heart Rate Assessment: Category 1 ?? surveillance: continuous while uncomfortable ?? GBS/RH/HIV Management: ?? GBS Management: None Required ?? Mag status: mag naive, will not start mag at this time ?? Steroid status & Plan: Beta complete 09/04/12 ?? Consultations: none at present Additional Issues: 1. 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 Managed by endocrine. Synthroid dose recently increased from 200mcg QD to 250mcg QD as TSH was most recently 34.90. Continue 250mcg QD. Repeat TSH planned for 10/05/12 - 1 month after dose change. 2. Marijuana use - urine tox Seen and examined with Dr. Mccord. CHUCK YANCEY MD 09/13/2012 I saw and evaluated Andree Hummel. I have reviewed the resident's history and confirmed it with the pateint and I agree with the details as written. My physical examination confirms the resident's findings. The assessment and plan were formulated in discussion with me and I agree with them as documented. MELY MCCORD MD documented in this encounter Miscellaneous Notes * Discharge Summary - Maite Marks MD - 09/15/2012 10:25 AM EDT Patient Name: Andree Hummel Patient Age: 22 y.o. Date of : 1990 Admit date: 09/13/2012 Disharge date and time: 09-14-12 Attending Physician: Mely Mccord MD Discharge Summary Antepartum Care Provider: [facility] Referring Provider if applicable: n/a Discharge Diagnoses (Hospital Problems) and Secondary Diagnoses (Chronic Problems): Active Hospital Problems Diagnoses ??? Threatened labor, antepartum ??? , supervision of, high-risk Team [facility] transfer of care from [facility] Delivery plan GBS date & Result Cystic fibrosis choice Aneuploidy choice QUAD Others screening tests Infant nutrition Childbirth education declined preferences Contraception plan undecided Ped/circ plans Immunizations: Influenza vaccine Accepted Declined Contraindicated x Other vaccines Indicated Not indicated Given during Tdap x Pneumovax MMR Varicella Other Resolved Hospital Problems Diagnoses Date Resolved Active Non-Hospital Problems Diagnoses ??? Threatened labor, antepartum ??? Obesity (BMI 30.0-34.9) ??? History of loss in prior , currently Reports 20 week loss that she delivered at home and did not seek care. ??? , supervision of, high-risk Team [facility] transfer of care from [facility] Delivery plan GBS date & Result Cystic fibrosis choice Aneuploidy choice QUAD Others screening tests nutrition Childbirth education declined preferences Contraception plan undecided Ped/circ plans Immunizations: Influenza vaccine Accepted Declined Contraindicated x Other vaccines Indicated Not indicated Given during Tdap x Pneumovax MMR Varicella Other ? ? Anti-Estuardo A&B antibodies ??? Hypothyroidism, postsurgical ??? Migraine ??? Depression Admission History (per admit note cut and paste) Andree WallisYasir is a 22 y.o. year [id number] female, GBS neg, with an ZAYDA of 11/12/2012, by Ultrasound who is at 31w3d weeks gestation. She was recently hospitalized for threatened labor and discharged with a stable cervix at 2/50 on 09/08/12. During that admission she was made steroid complete. She stated that she was seen in clinic today and her cervix was checked and found to be 2/90, and she began having painful contractions this afternoon, which initially went away, but then returned this evening around 18:00. These contractions are different from what she had been experiencing previously, and felt to be across her abdomen. She also had a gush of fluid this evening, though no continued leaking. No bleeding, normal FM. She has been keeping well-hydrated and denies F/C/N/V, dysuria, diarrhea. Her course has been complicated by the followin. Reported 20 week prior loss 2. 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 Managed by endocrine. Synthroid dose recently increased from 200mcg QD to 250mcg QD as TSH was most recently 34.90. 3. Migraines 4. Depression - has seen Dr. Griffith, declined meds during 5. Anti-Estuardo A&B antibodies 6. Obesity (BMI 30-34.9) 7. Marijuana use Hospital Course: Patient was admitted and observed for 36 hours, with four cervical exams with no change. Her cervix was 2/90/-3 with well developed lower uterine segment, but did not make any change. She did report feeling abdominal discomfort throughout her hospital stay and showed uterine irritability on the toco monitor, but because she made no cervical change she was not given magnesium or tocolytics, and she was deemed stable for discharge on HD2, with labor precautions and close scheduled follow up. Tocolytics Received if applicable: none Date Steroid Complete: 09-04-12 GBS status: neg 09/03/12 Cervix at discharge: Dilation: Dilation: 2 Effacement: Effacement: 90 Station: Station: -3 Pertinent Studies and Lab Data: No US Lab Results Component Value Date WBC 10.1* 09/13/2012 RBC 3.45* 09/13/2012 HGB 11.7 09/13/2012 HCT 34.3 09/13/2012 MCV 99.4* 09/13/2012 MCH 33.9* 09/13/2012 MCHC 34.1 09/13/2012 PLATELET 127* 09/13/2012 RDWCV 13.6 09/13/2012 Pending Studies and Lab Data: none Allergies: Allergies Allergen Reactions ??? Demerol (Meperidine) Anaphylaxis ??? Dilaudid (Hydromorphone (Bulk)) Hives Med Rec report: Discharge Medication List as of 09/14/2012 11:56 AM Continued medications, unchanged Details ondansetron (ZOFRAN-ODT) 4 mg oral disintegrating tablet Take 1 tablet by mouth every 8 hours as needed for Nausea., Oral, EVERY 8 HOURS PRN Starting 09/12/2012, Until Discontinued, Nausea, Disp-30 tablet, R-0, Normal levothyroxine (SYNTHROID) 125 mcg tablet Take 2 tablets by mouth nightly., Oral, NIGHTLY Starting 09/05/2012, Until Discontinued, Disp-30 tablet, R-2, Normal xkipfbiauc-ahlpszgvvnxlm-unyyjmcu (FIORICET, ESGIC) per tablet Take 1 tablet by mouth every 4 hoursas needed for Pain., Oral, EVERY 4 HOURS PRN Starting 09/02/2012, Until Discontinued, Pain, Disp-30 tablet, R-0, Print zolpidem (AMBIEN CR) 12.5 mg CR tablet Take 1 tablet by mouth nightly as needed for Sleep., Oral, NIGHTLY PRN Starting 09/02/2012, Until Discontinued, Sleep, Disp-30 tablet, R-0, Print ONDANSETRON HCL (ZOFRAN ORAL) Take by mouth. , Oral, Until Discontinued, Historical Med RANITIDINE HCL (ZANTAC ORAL) Take by mouth. , Oral, Until Discontinued, Historical Med VITS W-CA,FE,FA,<1MG, ( VITAMIN ORAL) Take by mouth. , Oral, Until Discontinued, Historical Med Ordered for After Discharge: No discharge procedures on file. Summary: Dating Summary: dating is by first trimester US OB History: OB History Grav Para Term Abortions TAB SAB Ect Mult Living 3 2 2 Active Medical Problems: No resolved problems to display. Active Hospital Problems Diagnoses ??? Threatened labor, antepartum ??? , supervision of, high-risk Resolved Hospital Problems Diagnoses Date Resolved Medical History: Past Medical History Diagnosis Date ??? Migraine 02/23/2011 None in 3-4 years ??? Anxiety sees therapist ??? Irritable bowel syndrome 2009 ulcers ??? Asthma Triggers are cold, exercise. Used steroids with episodes of bronchitis.. Asymptomatic for a year Intubated once when 18 months with bronchiolitis ??? Hypothyroidism ??? Anemia not on meds ??? Depression 02/23/2011 not on meds or in counseling ??? Varicella ??? Other and unspecified ovarian cysts 2008 ??? Chlamydia 2010 ??? Knee dislocation bilateral, multiple events Surgical History: Past Surgical History Procedure Date ??? Thyroidectomy, tony, ltd neck surg 03/22/2011 THYROIDECTOMY, FOR MALIGNANCY, LIMITED NECK DISSECTION performed by JUAN ESPARZA at [facility] MAIN OR ??? Somatosensory test, any/all per. nerves, trunk or head 03/22/2011 FACIAL NERVE MONITORING, SETUP performed by JUAN ESPARZA at [facility] MAIN OR ??? [place] tooth extraction ??? Upper gastrointestinal endoscopy for IBS, celiac excluded ??? Colonoscopy found polyps ??? Tonsillectomy 2010 Family History: Family History Problem Relation Age of Onset ??? Thyroid Disease Sister ??? * Brother dyspraxia ??? NOS GENETIC SYNDROMES Sister possible LCHAD deficiency 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: History 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 ??? Marital Status: Single Spouse Name: N/A Number of Children: 0 ??? Years of Education: 17 Occupational History ??? unemployed 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 Main Topics ??? Smoking status: Current Some Day Smoker -- 4 years Types: Cigarettes Last Attempt to Quit: 03/14/2012 ??? Smokeless tobacco: Never Used ??? Alcohol Use: No ??? Drug Use: Yes Special: Marijuana last smoked THC more than a month ago. ??? Sexually Active: Yes -- Male partner(s) Other Topics Concern ??? Not on file Social History Narrative ??? No narrative on file F/U (including additional evaluations): Close OB f/u. Instructions Given to Patient at Discharge: Provider Instructions -Please make a follow-up appointment to be seen in the clinic this week -Please take it easy with your activity level: avoid strenuous activity, sexual intercourse, long shopping trips. General Instructions [address] to contact OB doctor [phone] to contact family doctor to contact dedicated owner operator Andree Wallis-Tamara @ 09/14/12 @ 11:37 AM Following your visit to [facility] Triage Reason for Visit: Chief Complaint Patient presents with ??? Laboring Gestation - under 37 weeks Notify your provider if: You are feeling any cramping sensations in your abdomen more than 20 minutes apart [place] Contractions usually are irregular may get less painful or go away with walking, resting, or any other activities usually felt in the front and do not radiate to the back labor contractions may start irregular in frequency, then become regular and more frequent usually start in the front and radiate to the back. Some women experience pelvic pressure or back pain that may come and go. Resting, walking, and other activities will not take them away or may even make them worse If you are one month before your due date: any abdominal, back or pelvic pressure or pain that comes and goes as much or more than 4 times in an hour. You feeling a leakage of fluid may be a small leak of fluid may be a large gush note the time it started leaking, amount, and color of fluid (clear, yellow, green, pink, red) You notice vaginal bleeding spotting is normal following a vaginal exam in your doctor's or dedicated owner operator's office you should not bleed as much as a period You have noticed a marked decrease in your baby's movement refer to your kick count instructions in the Your Journey book Your baby should move at least 10 times in 2 hours You have had any direct trauma to your abdomen such as a car accident, fall, or impact Call your doctor or dedicated owner operator if you have the following symptoms: Headache Visual disturbance/spots in front of your eyes/blurry vision Pain under your ribs toward the right side of your abdomen Sudden swelling to your legs or any increase in swelling to your arms and face Pain or bleeding on urination A temperature at or above 100.4F Nausea or vomiting Flu-like symptoms: cough, fever, muscle aches General Instructions Drink plenty of non-caffeinated fluids throughout the day to prevent dehydratio Keep your regularly scheduled doctor or dedicated owner operator appointment Your medications: Current Facility-Administered Medications on File Prior to Encounter Medication Dose Route Frequency Provider Last Rate Last Dose ??? morphine 10 mg/mL carpuject ??? promethazine (PHENERGAN) 25 mg/mL injection Current Outpatient Prescriptions on File Prior to Encounter Medication Sig Dispense Refill ??? ondansetron (ZOFRAN-ODT) 4 mg oral disintegrating tablet Take 1 tablet by mouth every 8 hours as needed for Nausea. 30 tablet 0 ??? levothyroxine (SYNTHROID) 125 mcg tablet Take 2 tablets by mouth nightly. 30 tablet 2 ??? usqhuqbqgs-ftffekbihvizd-hgngnimr (FIORICET, ESGIC) per tablet Take 1 tablet [...] W-CA,FE,FA,<1MG, ( VITAMIN ORAL) Take by mouth. Special instructions/Follow-up Care: Space for patient-specific care or instructions If you have any other questions or concerns please call your provider at their office number Future Appointments and Orders Future Appointments: Provider: Department: Dept Phone: Center: 11/28/2012 1:40 PM Yaneth Griffith MD Psychiatry and Behavioral Health [phone] [facility] Joint Appt Questionnaire Five D Res-Psych LEB 5D [phone] [facility] Referrals:none MELY KLEIN MD 09/15/2012 Cc: * Miscellaneous - Provider, Scanning - 09/13/2012 3:59 PM EDT documented in this encounter Plan of Treatment Upcoming Encounters Date Type Department Care Team (Late st Contact Info) Description 05/23/2024 Hospital [place] [address] Maite Malloy MD [facility] OBSTETRICS [place] [address] documented as of this encounter Procedures Procedure Name Priority Date/Time Associated Diagnosis Comments GLUC 1 HR Timed 09/13/2012 4:15 PM EDT GEST DIABETES SCRN, GLUCOSE DOSE Timed 09/13/2012 4:15 PM EDT GESTATIONAL DIABETES SCREEN Timed 09/13/2012 4:15 PM EDT SCAN, PERIPHERAL BLOOD Routine 09/13/2012 5:00 AM EDT DIFFERENTIAL, AUTOMATED Routine 09/13/2012 5:00 AM EDT ABO/RH TYPING Routine 09/13/2012 5:00 AM EDT RAPID DRUG SCREEN W/O CONFIRMATION, URINE Routine 09/13/2012 5:00 AM EDT RUBELLA ANTIBODY, IGG Routine 09/13/2012 5:00 AM EDT CBC (WITH DIFF) Routine 09/13/2012 5:00 AM EDT ANTIBODY SCREEN Routine 09/13/2012 5:00 AM EDT TYPE AND SCREEN (MC/CGP/CARIE) Routine 09/13/2012 5:00 AM EDT documented in this encounter Results * Gest Diabetes Scrn, Glucose Dose (09/13/2012 4:15 PM EDT) Oral Glucose Dose 50 gm HANNAH SendmybagBRINAIUM Blood specimen (specimen) 09/13/2012 4:15 PM EDT 09/13/2012 4:23 PM EDT Mely Mccord MD CHEMISTRY ORDERABLES Performing Organization Address City/[facility] Co de Phone Number [facility] [employer] * Gluc 1 Hr (09/13/2012 4:15 PM EDT) Glucose 1 hour 83 mg/dL CERALIZA R MILLENNIUM Blood specimen (specimen) 09/13/2012 4:15 PM EDT 09/13/2012 4:23 PM EDT Narrative Resulting Agency Comment Spec In Lab Mely Mccord MD CHEMISTRY ORDERABLES [facility] [employer] * (ABNORMAL) Differential, Automated (09/13/2012 5:00 AM EDT) Neutrophils % 69.8 34.0 - 71.0 % CERNER MILLENNIUM Neutr Abs (ANC) 7.02(H) 1.50 - 6.30 x10(3)/mc L CERNER MILLENNIUM Lymphocytes % 20.8 19.0 - 53.0 % CERNER MILLENNIUM Lymphocytes Abs 2.1 1.0 - 3.6 x10(3)/mc L CERNER MILLENNIUM Monocytes % 8.4 4.0 - 13.0 % CERNER MILLENNIUM Monocyte Abs 0.8 0.2 - 1.0 x10(3)/mc L CERNER MILLENNIUM Eosinophils % 0.6 0.0 - 7.0 % CERNER MILLENNIUM Eosinophils Abs 0.1 0.0 - 0.5 x10(3)/mc L CERNER MILLENNIUM Basophils % 0.1 0.0 - 2.0 % CERNER MILLENNIUM Basophils Abs 0.0 0.0 - 0.2 x10(3)/mc L CERNER MILLENNIUM Immature Gran % 0.30 0.00 - 0.66 % CERNER MILLENNIUM Comment: Immature granulocytes(IG's)percentage and absolute count will include metamyelocytes, myelocytes, and promyelocytes. Blood smears from CBCs yielding IG's will be scanned manually for concordance. If this scan disagrees with the automated IG or if promyelocytes are noted, a manual differential will be performed. Kimmy Gran Abs 0.03 0.00 - 0.05 x10(3)/mc L CERNER MILLENNIUM Blood specimen (specimen) 09/13/2012 5:00 AM EDT 09/13/2012 6:11 AM EDT Mely Mccord MD HEMATOLOGY ORDERABLE S CERNER MILLENNIUM * Scan, Peripheral Blood (09/13/2012 5:00 AM EDT) Plat Estimate Decreased CERNER MILLENNIUM RBC Morphology Abnormal CERNE R MILLENNIUM Macrocytes 1-5 /HPF CERNER MILLENNIUM Giant Platelets Less than 1 /HPF CERNER MILLENNIUM Blood specimen (specimen) 09/13/2012 5:00 AM EDT 09/13/2012 6:11 AM EDT Narrative Resulting Agency Comment Spec In Lab Mely Mccord MD HEMATOLOGY ORDERABLE S Performing Organization Address City/[facility]/ZIP Co de Phone Number HANNAH SERRANO * Antibody screen (09/13/2012 5:00 AM EDT) Ab Screen Interp Negative HANNAH SERRANO Expires at [id number] on: [id number] HANNAH SERRANO Blood specimen (specimen) 09/13/2012 5:00 AM EDT 09/13/2012 6:09 AM EDT Narrative Resulting Agency Comment Spec In Lab Mely Mccord MD BLOOD BANK LAB ORDER AMANDA Performing Organization Address [facility] Co de Phone Number HANNAH SERRANO * ABO/Rh Typing (09/13/2012 5:00 AM EDT) ABORH Type A Pos HANNAH SERRANO Blood specimen (specimen) 09/13/2012 5:00 AM EDT 09/13/2012 6:09 AM EDT Narrative Resulting Agency Comment Spec In Lab Mely Mccord MD BLOOD BANK LAB ORDER AMANDA Performing Organization Address [facility] Co de Phone Number HANNAH SERRANO * (ABNORMAL) Rapid Qual Drug Screen, Urine ([facility]) (09/13/2012 5:00 AM EDT) TIFFANIE Marijuana Metabolites Scr Presumptive Pos(A) None Detected [facility] Comment: The marijuana metabolites screen detects the THC Metabolite (91-zkp-9-carboxy- 9-THC) at concentrations >50 ng/mL. Qualitative Drug screens are reported as None Detected or Presumptive Positive as the results are not routinely confirmed by highly-specific methods. As with any screen occasional false positive results from cross-reacting substances can occur. Not for Medico-Legal Purposes. TIFFANIE Phencyclidine Scr None Detected None Detected [facility] Comment: The phencyclidine screen detects phencyclidine at concentrations >25 ng/mL. Qualitative Drug screens are reported as None Detected or Presumptive Positive as the results are not routinely confirmed by highly-specific methods. As with any screen occasional false positive results from cross-reacting substances can occur. Not for Medico-Legal Purposes. TIFFANIE Cocaine Metabolites Scr None Detected None Detected CERNER MILLENNIUM Comment: The cocaine metabolites screen detects benzoylecgonine (Cocaine Metabolite) at concentrations >150 ng/mL. Qualitative Drug screens are reported as None Detected or Presumptive Positive as the results are not routinely confirmed by highly-specific methods. As with any screen occasional false positive results from cross-reacting substances can occur. Not for Medico-Legal Purposes. TIFFANIE Methamphetamines Scr None Detected None Detected CERNER MILLENNIUM Comment: The methamphetamine screen detects d-methamphetamine at concentrations >500 ng/mL. Qualitative Drug screens are reported as None Detected or Presumptive Positive as the results are not routinely confirmed by highly-specific methods. As with any screen occasional false positive results from cross-reacting substances can occur. Not for Medico-Legal Purposes. TIFFANIE Opiates Scr Presumptive Pos(A) None Detected CERNER MILLENNIUM Comment: The opiates screen detects opiates at a concentration >100 ng/mL and oxymorphone >250 ng/mL. Qualitative Drug screens are reported as None Detected or Presumptive Positive as the results are not routinely confirmed by highly-specific methods. As with any screen occasional false positive results from cross-reacting substances can occur. Not for Medico-Legal Purposes. TIFFANIE Amphetamines Scr None Detected None Detected CERNER MILLENNIUM Comment: The amphetamine screen detects d-amphetamine at concentrations >500 ng/mL. Qualitative Drug screens are reported as None Detected or Presumptive Positive as the results are not routinely confirmed by highly-specific methods. As with any screen occasional false positive results from cross-reacting substances can occur. Not for Medico-Legal Purposes. TIFFANIE Benzodiazepines Scr None Detected None Detected CERNER MILLENNIUM Comment: The benzodiazepines screen detects benzodiazepines at concentrations >150 ng/mL. Not all benzodiazepines cross-react equally with antibody used in this screen. Due to the low dosage of clonazepam, false negatives may be obtained due to low concentration of clonazepam metabolites. Qualitative Drug screens are reported as None Detected or Presumptive Positive as the results are not routinely confirmed by highly-specific methods. As with any screen occasional false positive results from cross-reacting substances can occur. Not for Medico-Legal Purposes. TIFFANIE Tricyclics Scr None Detected None Detected CERNER MILLENNIUM Comment: The tricyclics screen detects tricyclic antidepressants at concentrations >300 ng/mL. Not all tricyclics cross-react equally with the antibody used in this screen. Qualitative Drug screens are reported as None Detected or Presumptive Positive as the results are not routinely confirmed by highly-specific methods. As with any screen occasional false positive results from cross-reacting substances can occur. Not for Medico-Legal Purposes. TIFFANIE Methadone Scr None Detected None Detected CERNER MILLENNIUM Comment: The methadone screen detects methadone at concentrations >200 ng/mL. Qualitative Drug screens are reported as None Detected or Presumptive Positive as the results are not routinely confirmed by highly-specific methods. As with any screen occasional false positive results from cross-reacting substances can occur. Not for Medico-Legal Purposes. TIFFANIE Barbiturates Scr Presumptive Pos(A) None Detected CERNER MILLENNIUM Comment: The barbiturates screen detects barbiturate at concentrations >200 ng/mL. Note: Not all barbiturates cross-react equally with antibody used in this screen. Qualitative Drug screens are reported as None Detected or Presumptive Positive as the results are not routinely confirmed by highly-specific methods. As with any screen occasional false positive results from cross-reacting substances can occur. Not for Medico-Legal Purposes. TIFFANIE Oxycodone Scr None Detected None Detected CERNER MILLENNIUM Comment: The oxycodone screen detects oxycodone at concentrations >100 ng/mL and oxymorphone >250 ng/ml. Qualitative Drug screens are reported as None Detected or Presumptive Positive as the results are not routinely confirmed by highly-specific methods. As with any screen occasional false positive results from cross-reacting substances can occur. Not for Medico-Legal Purposes. TIFFANIE Propoxyphene Scr None Detected None Detected CERNER MILLENNIUM Comment: The propoxyphene screen detects propoxyphene at concentrations >300 ng/mL. Qualitative Drug screens are reported as None Detected or Presumptive Positive as the results are not routinely confirmed by highly-specific methods. As with any screen occasional false positive results from cross-reacting substances can occur. Not for Medico-Legal Purposes. TIFFANIE Buprenorphine Scr None Detected None Detected CERNER MILLENNIUM Comment: The buprenorphine screen detects buprenorphine at concentrations >10 ng/mL. Qualitative Drug screens are reported as None Detected or Presumptive Positive as the results are not routinely confirmed by highly-specific methods. As with any screen occasional false positive results from cross-reacting substances can occur. Not for Medico-Legal Purposes. Urine specimen (specimen) 09/13/2012 5:00 AM EDT 09/13/2012 6:11 AM EDT Narrative Resulting Agency Comment Spec In Lab Mely Mccord MD URINE ORDERABLES Performing Organization Address [facility] Co de Phone Number CERNER MILLENNIUM * (ABNORMAL) Rubella Antibody, IgG (09/13/2012 5:00 AM EDT) Rubella IgG Negative( A) Positive CERNER MILLENNIUM Comment: Please note: ??A positive result for this assay indicates that antibody levels are >or= 10.0 IU/mL and is considered to be an indicator of positive immune status. Blood specimen (specimen) 09/13/2012 5:00 AM EDT 09/13/2012 6:11 AM EDT Narrative Resulting Agency Comment Spec In Lab Mely Mccord MD IMMUNOLOGY ORDERABLE S Performing Organization Address [facility] de Phone Number CERNER MILLENNIUM * (ABNORMAL) CBC (with Diff) (09/13/2012 5:00 AM EDT) Pathologist [facility] WBC 10.1(H) 4.0 - 10.0 x10(3)/mcL CERNER MILLENNIUM RBC 3.45(L) 3.93 - 5.22 x10(6)/mcL CERNER MILLENNIUM Hemoglobin 11.7 11.2 - 15.7 gm/dL CERNER MILLENNIUM Hematocrit 34.3 34.0 - 45.0 % CERNER MILLENNIUM MCV 99.4(H) 79.0 - 94.0 fL CERNER MILLENNIUM MCH 33.9(H) 26.6 - 32.2 pg CERNER MILLENNIUM MCHC 34.1 32.0 - 36.5 gm/dL CERNER MILLENNIUM Platelets 127(L) 145 - 370 x10(3)/mcL CERNER MILLENNIUM RDWSD 49.0(H) 35.0 - 46.0 fL CERNER MILLENNIUM RDWCV 13.6 10.9 - 14.4 % HANNAH SERRANO MPV 13.9(H) 9.0 - 12.0 fL HANNAH SERRANO Blood specimen (specimen) 09/13/2012 5:00 AM EDT 09/13/2012 6:11 AM EDT Narrative Resulting Agency Comment Spec In Lab Mely Mccord MD HEMATOLOGY ORDERABLE S HANNAH SERRANO documented in this encounter Visit Diagnoses Diagnosis Threatened labor, antepartum- Primary Threatened premature labor, antepartum Hypothyroidism Unspecified hypothyroidism Abnormal antibody titer Other and unspecified nonspecific immunological findings Depression Depressive disorder, not elsewhere classified History of loss in prior , currently with history of Hypothyroidism, postsurgical Postsurgical hypothyroidism Obesity (BMI 30.0-34.9) Obesity, unspecified Threatened labor, antepartum Threatened premature labor, antepartum , supervision of, high-risk Unspecified high-risk documented in this encounter Administered Medications Inactive Administered Medications - up to 3 most recent administrations Medication Order MAR Action Action Date Dose Rate Site acetaminophen (TYLENOL) tablet 650 mg 650 mg, Oral, EVERY 4 HOURS PRN, Starting on Sun09/13/12 at 0549, Until 09/14/12 at 1413, Pain, mild pain, Not exceed 4 grams per 24 hours, Routine Given 09/14/2012 9:01 AM EDT 650 mg docusate sodium (COLACE) capsule 100 mg 100 mg, Oral, 2 TIMES DAILY PRN, Starting on Sun09/13/12 at 0549, Until 09/14/12 at 1413, Constipation, Routine Given 09/14/2012 9:02 AM EDT 100 mg morphine 10 mg/mL carpuject 10 mg 10 mg, Intramuscular, ONCE, 1 dose, On Sun09/13/12 at 0615, Routine Given 09/13/2012 1:20 AM EDT 10 mg morphine 10 mg/mL carpuject 5 mg 5 mg, Intravenous, ONCE, 1 dose, On Sun09/13/12 at 0615, Routine Given 09/13/2012 1:23 AM EDT 5 mg ondansetron (ZOFRAN) tablet 4 mg 4 mg, Oral, EVERY 8 HOURS PRN, Starting on Sun09/13/12 at 1032, Until 09/14/12 at 1413, Nausea, Routine Given 09/13/2012 7:30 PM EDT 4 mg Given 09/13/2012 11:20 AM EDT 4 mg vitamin 27 & [id number] 60 mg iron-1 mg tablet Tab 1 tablet 1 tablet, Oral, DAILY, First dose on Sun09/13/12 at 0900, Until Discontinued, Routine Given 09/14/2012 9:00 AM EDT 1 tablet Given 09/13/2012 12:30 PM EDT 1 tablet promethazine (PHENERGAN) injection 25 mg 25 mg, Intravenous, ONCE, On Sun09/13/12 at 0615, 1 dose, Avoid extravasation Given 09/13/2012 1:18 AM EDT 25 mg documented in this encounter Active and Recently Administered Medications Times are shown in EDT. Scheduled Medication Order 09/12/2012 09/13/2012 09/14/2012 morphine 10 mg/mL carpuject 10 mg (COMPLETED) 10 mg, Intramuscular, ONCE, 1 dose, On Sun09/13/12 at 0615, Routine 0120 (Given - Provider: Carmen Cisneros RN)0615 (Due) morphine 10 mg/mL carpuject 5 mg (COMPLETED) 5 mg, Intravenous, ONCE, 1 dose, On Sun09/13/12 at 0615, Routine 0123 (Given - Provider: Carmen Cisneros RN)0615 (Due) vitamin 27 & [id number] 60 mg iron-1 mg tablet Tab 1 tablet (CANCELED) 1 tablet, Oral, DAILY, First dose on Sun09/13/12 at 0900, Until Discontinued, Routine 0900 (Due)1230 (Given - Provider: Tavia Chan RN) 0900 (Given - Provider: Emeli Jimenez RN - Comment: Pt took own while RN was out of room) promethazine (PHENERGAN) injection 25 mg (COMPLETED) 25 mg, Intravenous, ONCE, On Sun09/13/12 at 0615, 1 dose, Avoid extravasation 0118 (Given - Provider: Carmen Cisneros RN)0615 (Due) PRN Medication Order 09/12/2012 09/13/2012 09/14/2012 acetaminophen (TYLENOL) tablet 650 mg (CANCELED) 650 mg, Oral, EVERY 4 HOURS PRN, Starting on Sun09/13/12 at 0549, Until 09/14/12 at 1413, Pain, mild pain, Not exceed 4 grams per 24 hours, Routine 0901 (Given - Provid er: Emeli Knight V RN) docusate sodium (COLACE) capsule 100 mg (CANCELED) 100 mg, Oral, 2 TIMES DAILY PRN, Starting on Sun09/13/12 at 0549, Until 09/14/12 at 1413, Constipation, Routine 0902 (Given - Provid er: Emeli Jimenez RN) ondansetron (ZOFRAN) tablet 4 mg (CANCELED) 4 mg, Oral, EVERY 8 HOURS PRN, Starting on Sun09/13/12 at 1032, Until 09/14/12 at 1413, Nausea, Routine 1120 (Given - Provider: Tavia Chan RN)1930 (Given - Provider: Tavia Chan RN) documented in this encounter Care Teams Diabetes Trainer Relationship Specialty Start Date End Date None None PCP - General 05/08/12 04/20/14 documented as of this encounter
--- OUTSIDE RECORDS SUMMARY | 2023-10-29 04:02 | XMS_ITS | Encounter Summary ---
Author Organization [facility] [place] [address] Care Team Providers Care Occupational Health And Safety Adviser Name Role Phone None Primary Care Provider Unavailabl e Encounter Details Date Type Department Care Team (Late st Contact Info) Description 03/22/2011 2:28 PM EST - 03/22/2011 4:56 PM EST [place] [address] Juan Ko MD [facility] [place] [address] THYROIDECTOMY, FOR MALIGNANCY, LIMITED NECK DISSECTION (WRVU 22.01) Social History Tobacco Use Types Packs/Day Years Used Date Smoking Tobacco: Former Cigarettes Q uit: 03/14/2011 Sex and Gender Information Value Date Recorded Sex Assigned at Female 10/12/2023 9:44 AM EDT Gender Identity Female 10/12/2023 9:44 AM EDT Sexual Orientation Straight 10/12/2023 9: 44 AM EDT documented as of this encounter Last Filed Vital Signs Vital Sign Reading Time Taken Comments Blood Pressure 114/64 03/22/2011 12:36 PM EST Pulse 72 03/22/2011 12:36 PM EST Temperature 36.5 ??C (97.7 ??F) 03/22/2011 12:[address] Respiratory Rate 16 03/22/2011 12:36 PM EST Oxygen Saturation 98% 03/22/2011 12:36 PM EST Inhaled Oxygen Concentration - - Weight - - Height - - Body Mass Index - - documented in this encounter Discharge Instructions * Discharge Instructions* Bhumika Hurtado RN - 03/22/2011 5:49 PM EST POST ANESTHESIA INSTRUCTIONS Go home, rest, use caution on stairs. Change positions slowly. Do not smoke if you are alone. Diet light to regular as tolerated today. If nausea occurs start with clear liquids and progress slowly. No driving, operating machinery, alcoholic beverages and no important decisions for 24 hours. Monitor IV site for signs and symptoms of infection: increasing redness, swelling, foul drainage, if occurs contact M.D. Patients who have had endotrachial tubes (this tube, used by anesthesia department, is passed down your throat after you are asleep, to ensure safe air passage during your operation). A sore throat is normal due to the tube. Cold liquids or soothing lozenges will help ease the discomfort. The generalized muscle aches are due to the medication given to you just before the tube is inserted. As the medication wears off, you may develop muscle soreness, which usually goes away in 12-24 hours. * Patient Instructions* Satinder Duncan MD - 03/22/2011 5:17 PM EST Instructions following Thyroid or Parathyroid Surgery What to Expect Following Surgery Swelling and/or bruising under the incision is normal. It is usually greatest on the second or third day following surgery. You may also feel the sensation of swelling or firmness that can last for amonth or more Your scar will be most visible for 1-2 months following your operation and will gradually fade overthe next 6-8 months. As it heals, a scar looks more pink or red than the skin around it. You may feel a ???healing ridge?? directly under the incision. This is normal and will go away when healing is complete in 3-6 months. The skin just above and below your incision will feel numb. This will improve over several months but some patients may have long-term decrease in sensation over these areas You may notice minor changes in swallowing which will improve over time. Your voice may be hoarse or weak at first--because the surgery was near the voice box--but usually recovers over several weeks Incision Care Keep dressing on your incision for the next 2 days, then you may remove dressing and leave incisionopen to air Remove dressing and replace with dry gauze if it becomes saturated or wet in the next 2 days, replace as needed. If there are pieces of tape directly on the skin (steri-strips), please leave them on until they fall off on their own. You may trim them back as they peel up, or just remove them after 2 weeks. Once dressing is removed in 2 days you may shower and get incision wet. Pat dry immediately following. Do not scrub area vigorously for the next 2 weeks. Do not soak incision under water (i.e. bath or swimming) for the next 2 weeks to prevent a wound infection. Do not use any ointments/salves/Vitamin E on the incision until after your first follow-up appointment as these may impair early wound healing Incisions are sensitive to sunlight. For 1 year after surgery you should use sunscreen when outdoors for long periods of time to prevent permanent darkening of the scar. This includes tanning booths Diet & Activity No restrictions in your diet are necessary. Activity as tolerated by your comfort level You may return to work in 5-7 days or sooner if desired NO DRIVING for at least 8 hours following any dose of an opioid pain medication if one was prescribed for you Thyroid Hormone If you had a thyroid operation, you may be prescribed thyroid hormone replacement (levothyroxine, synthroid, levothroid) to take daily Usual starting dose is 125 mcg (micrograms) daily Take this at the same time each day A blood test will performed at your first follow-up visit to ensure dosing is correct for you Pain Management Take NSAIDS like ibuprofen (motrin, advil), naproxen (Naprosyn, Aleve), or acetaminophen (Tylenol) every 6 hours for the first 3-5 days following surgery to help minimize pain. Use opioid (Percocet, Vicodin, Tylenol #3) pain medications for severe pain, and do not take with alcohol. To prevent Tylenol overdose do not take Tylenol doses within 4-6 hours before or after thesemedications (they contain Tylenol as well) Opioid medications typically cause constipation, so we suggest using a stool softener in addition (metamucil, colace...etc.) You may apply ice or cold packs to the incision for 15-20 minutes several times a day for the first2-3 days following surgery to help with discomfort You may feel some stiffness/soreness in your shoulders, back, and neck. This may take a few days orweeks to go away completely. You may use moist warm heat, heating pad, or massage to these areas for 15-20 minutes several times a day. Do not be afraid to move your neck - gently flexing and stretching your neck muscles and light massage will help prevent stiffness Calcium Supplementation Your body???s calcium levels may fall following a total thyroidectomy or parathyroid operation, which usually lasts only a few days Take calcium and vitamin D supplementation three times daily for the next 5 days (such as [place] Larry orCaltrate D or equivalent product containing 500 mg calcium carbonate per tablet); you should begin this the night of surgery If you notice a tingling sensation in your hands, feet, around your mouth, or develop muscle twitching then take 4 tums (calcium carbonate) every 8 hours for 2 days. If there is no improvement in tingling or twitching despite taking 4 Tums every 8 hours then pleasecall Follow-up Appointment Will be scheduled with Dr. Ko in 4-6 weeks Date and time as well as any required labs will be mailed to you Please call our office to confirm date and time of your appointment if you do not her from us in the next 4 weeks Call Doctor for: Worsening redness or drainage from your incision lasting longer than 5 days following surgery Any foul-smelling drainage from the incision Fevers greater than 101 degrees F Persistent nausea or vomiting (this may be related to opioid pain medications) Tingling in your hands or around your mouth, or muscle spasms not relieved by calcium supplementation (tums) Phone number for questions: [phone] before 5 PM weekdays [phone] after 5 PM and on weekends/holidays documented in this encounter Medications at Time of Discharge Medication Sig Dispensed Refills Start Date End Date hydroCODone-acetaminoph en (VICODIN) 5-500 mg per tablet Take 1-2 tablets by mouth every 6 hours as needed for Pain. 20 tablet 0 03/22/2011 05/10/2011 levothyroxine (SYNTHROID) 125 mcg tablet Take 1 tablet by mouth daily. 30 tablet 2 03/22/2011 05/10/2011 Calcium Carbonate-Vitamin D3 (CALCIUM 500 WITH D) 500 mg(1,250mg) -400 unit Tab Take by mouth. Three times daily as instructed. Over the counter medication. 30 capsule 3 03/22/2011 05/10/2011 NORGESTIMATE-ETHINYL ESTRADIOL (ORTHO-CYCLEN, 28, ORAL) 02/25/2008 05/22/2012 documented as of this encounter Progress Notes * Bhumika Hurtado RN - 03/22/2011 7:23 PM EST Pt is alert and oriented times four, vital signs stable. Pt tolerated sips of water and jello without c/o nausea. Pt's anterior neck dressing is C/D/I. Pt given a total of 150 mcg of Fentanyl IV and Vicodin 2 tablets PO for post- operative pain of 9/10 on pain scale with minimal effect. Pt refused to take more Fentanyl and requested Morphine for pain. Anesthesia team notified of pt's request for different pain medication and Dr. Amin and Dr. Gutiérrez at bedside to assess patient. Order written for Flexeril 5 mg PO and Lidoderm patch to posterior neck by Dr. Gutiérrez after assessing pt. Pt given Flexeril and Lidoderm patch. Pt states, I want to go home now. Pt given discharge instructions and prescriptions with teaching. Pt's IV access discontinued per policy, pt tolerated well. Pt discharged home with parents. BHUMIKA HURTADO RN documented in this encounter H&P Notes * Juan Ko MD - 03/21/2011 3:11 PM EST H&P INTERVAL NOTE - 24 HOUR UPDATE I have reviewed the pre-procedure H&P completed by me on 03/08/11. Condition unchanged since H&P originally performed. Source Note - Juan Ko MD - 03/08/2011 12:03 PM EST Reason for Visit: Andree SinghTamara is a 20 y.o. female who is seen in consultation per None and Yessy Novak MD because of a left thyroid nodule. History of Present Illness: She has an episode of severe pharygo-tonsillitis in August requiring hospital admission for IV antibiotics. CT scan at the time noted a left thyroid nodule. She underwent T&A in November, and was referred to Dr. Novak for evaluation of her thyroid. She has a H/O intermittent tenderness and swelling of her thyroid, but was never diagnosed with thyroiditis. She underwent US and FNA. US revealed: THYROID ULTRASOUND: Indication: Thyroid nodule on prior study; Considering FNA - clarify size, position and US characteristics Date: 02/23/2011 Real time images of the thyroid gland were obtained using a SonoSiXebiaLabsaxx and an HFL38/13-6 broadband linear array transducer. Right Lobe: The right lobe measures: 2.3 x 2.3 cm and has diffusely heterogeneous echotexture with honeycombing. Left Lobe: The left lobe measures: 2.2 x 2.5 cm and has diffusely heterogeneous echotexture with honeycombing. There is an iso-echoic nodule in the left lower pole that measures: 1.9 x 2.3 x 2.5 cm The nodule has sharp margins; There are no intranodular calcifications; There is moderate flow on color doppler. There is an isoechoic left lower nodule, more medial to the above mentioned one, that measures 1.3.X 1.2 x 1.2 cm and has no calcifications and low flow on color doppler. Impression: Thyroid nodules as described above. Cytology revealed: ---Adequacy--- Specimen submitted is satisfactory. ---Cytopathologic Diagnosis--- Atypical 02/24/11 Screened by: FMQ Rescreened by: CECY SANTOS 03/01/11 Verified by: MELLO LIMA, RENARD Pathologist (Electronic Signature) ---Comment--- Thyroid, left lower pole (US-guided FNA): Atypical Cytologic preservation: Adequate Cellularity (follicular cells): Adequate Colloid: Scant on LBP Macrophages: Absent Follicular cells present predominantly in a micro- macrofollicular pattern on the smears and a predominantly MICRO follicular pattern on the LBP. No excess lymphocytes/ Hurthle cell changes are noted to suggest Obinna's thyroiditis. Due to the predominance of microfollicles on the LBP this case is being classified in the atypical category. This may represent an adenomatous nodule though a neoplastic process cannot be excluded. This case was reviewed at the intradepartmental multihead conference with Juan Ramon Ashby and Lori. ---Clinical Information--- Specimen Source: Thyroid, left lower pole (US-guided FNA) She has a family history of thyroid disease with a younger sister who is hypothyroid and 4 paternalrelative who underwent thyroidectomy. She has no history of head or neck irradiation. She has no dysphagia or dysphonia. This has not been felt on physical exam. ROS: No H/O asthma, MS, stroke, pulmonary embolus or phlebitis. Comprehensive review of systems otherwise negative and non-contributory. PMSH: Surgical history: T&A Active medical problems: GERD Tobacco: (x) Current smoker, 1 PPD, 3 Pack-years ETOH: < monthly I have reviewed the relevant laboratory tests and imaging studies. Allergies as of 03/08/2011 ??? (No Known Allergies) Current outpatient prescriptions ordered prior to encounter Medication Sig Dispense Refill ??? NORGESTIMATE-ETHINYL ESTRADIOL (ORTHO-CYCLEN, 28, ORAL) PE: General: Well developed, well nourished 20 y.o. female in NAD. Skin: warm, dry, good turgor, nonicteric. Neck: She has an enlarged, firm, minimally tender thyroid bilaterally with no adenopathy. HEENT: ANDREA, EOM's full, sclera nonicteric, otherwise unremarkable. Back: no tenderness to AP or lateral compression. Lungs: Clear BS bilaterally without wheezes, rales or rhonchi. Card: Heart sounds normal, no murmurs, gallops, rubs or S3. Extremities: warm, no edema. Neuro: Awake, alert and oriented x 3., [place] negative bilaterally. Imp: FN in setting of thyroiditis. Plan: Recommend proceeding with total thyroidectomy with CCND. She understands the implications, indications, potential complications and agrees to proceed. Will sign in through [facility]. Consent is signed. Send copy to Dr. Villalba. documented in this encounter Miscellaneous Notes * Miscellaneous - Provider, Scanning - 03/22/2011 9:20 PM EST * Op Note - Satinder Duncan MD - 03/22/2011 5:12 PM EST [facility] Operative Note Patient Name: Andree Hummel : [id number] MR#: [id number] Case Date: 03/22/2011 Surgeon: Surgeon(s) and Role: * JUAN KO MD - Primary * SATINDER DUNCAN MD - Resident-Surgeon Brodie Preoperative diagnosis: PTC Postoperative diagnosis: PTC Procedure(s): THYROIDECTOMY, FOR MALIGNANCY, LIMITED NECK DISSECTION FACIAL NERVE MONITORING, SETUP General Estimated Blood Loss: 25cc Drains: none Disposition: awakened from anesthesia, extubated and taken to the recovery room in a stable condition, having suffered no apparent untoward event. Condition: doing well without problems (Please see the Surgical Encounter Summary for any Implant and Specimen details pertinent to this patient.) History of Present Illness: She has an episode of severe pharygo-tonsillitis in August requiring hospital admission for IV antibiotics. CT scan at the time noted a left thyroid nodule. She underwent T&A in November, and was referred to Dr. Novak for evaluation of her thyroid. She has a H/O intermittent tenderness and swelling of her thyroid, but was never diagnosed with thyroiditis. She underwent US and FNA. US revealed: THYROID ULTRASOUND: Indication: Thyroid nodule on prior study; Considering FNA - clarify size, position and US characteristics Date: 02/23/2011 Real time images of the thyroid gland were obtained using a SonoSite MicroMaxx and an HFL38/13-6 broadband linear array transducer. Right Lobe: The right lobe measures: 2.3 x 2.3 cm and has diffusely heterogeneous echotexture with honeycombing. Left Lobe: The left lobe measures: 2.2 x 2.5 cm and has diffusely heterogeneous echotexture with honeycombing. There is an iso-echoic nodule in the left lower pole that measures: 1.9 x 2.3 x 2.5 cm The nodule has sharp margins; There are no intranodular calcifications; There is moderate flow on color doppler. There is an isoechoic left lower nodule, more medial to the above mentioned one, that measures 1.3.X 1.2 x 1.2 cm and has no calcifications and low flow on color doppler. 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 Referred to General Surgery clinic, and following discussion of risks and benefits, has elected to proceed with operative intervention. Operative Procedure: The patient was brought to the Operating Room and placed upon the OR table. Following induction of general anesthesia, she was sterilely prepped and draped in the usual fashion including placement of a laryngeal nerve monitor. Timeout was then performed to confirm patient identity and procedure being performed. We began making an approximately 6-cm curvilinear skin crease incision approximately 3 cm above the sternal notch. This was extended through the subcutaneous tissue and platysma using electrocautery. We then divided the strap muscles in the midline raphe with electrocautery allowing us to retract these laterally. Now with this completed, we began our dissection on the right thyroid lobe. We incised the ligament of Ruano and began our extracapsular dissection first skeletonizing the middle thyroid vein, which was then clamped proximally and divided distally with harmonic scalpel. The vascular pedicle was then ligated with silk. We continued our dissection more superiorly skeletonizing the superior thyroid artery and vein. Similarly, we clamped this proximally and divided it with harmonic, again ligating it with silk. At this point we were able to further mobilize the gland, identified the recurrent laryngeal nerve on the right, and using the nerve stimulator continued our dissection more inferiorly with care taken to preserve the nerve throughout the course of our dissection. We then continued inferiorly and skeletonized the inferior thyroid artery and vein, which were divided in similar fashion. We then performed our central compartment patsy dissection, as well as excision of some fatty tissues near the inferior pole of the right lobe,possibly representing thymus. This was sent with the specimen. Completion of our right sided dissection allowed further mobilization of the gland and we were able to complete a fair portion of the pre tracheal dissection of the thyroid. This was done with sequential clamp and tie. With the right thyroid lobe mobilized, we then turned our attention to the left and completed our dissection in similar fashion with ongoing use of the nerve stimulator to preserve the recurrent laryngeal nerve on the left. With our dissection completed, we passed the thyroid off as specimen and turned out attention back to our operative field, which was noted to be hemostatic. A 30-mm mercury Valsalva was completed on each side and Surgicel was then placed and left in situ bilaterally. The strap muscles were reapproximated in the midline with a running locking 4-0 Monocryl and the platysma was then closed with a running every other locking 4-0 Monocryl. The skin was reapproximated with running 4-0 Monocryl in a subcuticular fashion. The incision was then dressed with sterile gauze and Tegaderm. At the end of the procedure, all the needle, sponge, and instrument counts were correct. Dr. Ko was present and scrubbed for the entire procedure. There were no complications. The patient was then awoken from anesthesia, extubated in the Operating Room, and taken to the Recovery Area in stable condition. * OR Attestation - Juan Ko MD - 03/22/2011 5:11 PM EST Attestation: Case Date: 03/22/2011 I was present and I participated during the entire procedure (does not need to include opening and closing). JUAN KO MD 03/22/2011 * Brief Op Note - Juan Ko MD - 03/22/2011 5:10 PM EST Brief Operative Note Patient Name: Andree Hummel : [id number] MR#: [id number] Case Date: 03/22/2011 Surgeon: Surgeon(s) and Role: * JUAN KO MD - Primary * SATINDER DUNCAN MD - Resident-Surgeon Brodie Preoperative diagnosis: PTC Postoperative diagnosis: PTC Procedure(s): THYROIDECTOMY, FOR MALIGNANCY, LIMITED NECK DISSECTION FACIAL NERVE MONITORING, SETUP Anesthesia: General Estimated Blood Loss: 25mL Drains: none Disposition: awakened from anesthesia, extubated and taken to the recovery room in a stable condition, having suffered no apparent untoward event. Condition: doing well without problems (Please see the Surgical Encounter Summary for any Implant and Specimen details pertinent to this patient.) * Miscellaneous - Provider, Scanning - 03/22/2011 1:14 PM EST documented in this encounter Plan of Treatment Upcoming Encounters Date Type Department Care Team (Late st Contact Info) Description 05/23/2024 Hospital Encounter Birthing [facility] [place] [address] Maite Malloy MD [facility] OBSTETRICS [place] [address] documented as of this encounter Procedures Procedure Name Priority Date/Time Associated Diagnosis Comments FACIAL NERVE MONITORING, SETUP Routine 03/23/2011 2:38 PM EST SURGICAL PATHOLOGY REPORT Routine 03/22/2011 5:13 PM EST SPECIMEN TO PATHOLOGY Routine 03/22/2011 4:33 PM EST FACIAL NERVE MONITORING, SETUP PERIPHERAL (WRVU 0.54) 03/22/2011 2:08 PM EST PTC THYROIDECTOMY, FOR MALIGNANCY, LIMITED NECK DISSECTION (WRVU 22.01) 03/22/2011 2:08 PM EST PTC documented in this encounter Results * Surgical Pathology Report (03/22/2011 5:13 PM EST) Surgical Pathology Report [id number] ? Location: [facility] The signing pathologist has (i) examined the relevant preparation(s) for the specimen(s) and (ii) rendered or confirmed the diagnosis(es). . ?Pathology Surgical Pathology Final Report Clinical Information Specimen Submitted: A - Total thyroid with central compartmental node dissection Clinical History/Diagnosis: PTC Gross Description Labeled/Fixative: ? Total thyroid with central compartment node ?dissection, fresh. Qty/Size/Weight: ?Single, 7.0 x 6.0 x 4.0 cm, 61 g. Tissue Description: ? Thyroid with central compartment nodes. ?? External Surface: ?Nodular and enlarged symmetrically. ?? Parathyroid(s) ? None identified. ?? Lesion: ?A single large nodule measuring 2.7 cm in ?greatest dimension is found in the left lateral ?lower pole. ?? Additional lesions: ?The specimen is serially sectioned and ?demonstrates diffuse, tam-yellow, nodular ?proliferations in both lobes and isthmus. ?Contour/Capsule: ?The capsule of the thyroid appears to abut ?these nodules and is somewhat distorted by them. Sections/Processin g: ?(1-20) serial sections of right lobe from ?superior to inferior; (21-40) left lobe from superior to inferior including enlarged parathyroid; (41-44) automobile rental representative sections of isthmus; (45-50) serial sections of matted, possible lymph nodes in the central compartment. (R50) ??aje/DPN Microscopic Description Slides reviewed, microscopic description not recorded. Diagnosis CORRECTED REPORT (see Comment) Thyroid and central compartment, total thyroidectomy: ??1. Follicular adenoma, microfollicular pattern, left lobe, 2.7 cm. ??2. 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 ??3. Two benign parathyroid glands, right lower (A20) and left lower (A29). ??4. Twelve benign lymph nodes (0/12). ??5. 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 ??6. Incidental intrathyroidal adipose tissue. CR-0 03/28/11 LJT 03/31/11 Verified by: ? Yessy Max MD ?Pathologist ?(Electronic Signature) The attending pathologist whose signature appears on this report has reviewed all diagnostic slides and has edited the gross and/or microscopic portion of the report in rendering the final pathologic diagnosis. . Comment Correction Note: ??The responsible physician is changed. ??There are NO other changes to the text of this report. Killian Abel, 03/31/11 10:47 CERSWETA SERRANO 03/22/2011 5:13 PM EST Juan Ko MD PATHOLOGY/CYTOLOGY ORDERABLES Performing Organization Address [facility] Co de Phone Number [email or web address] * Specimen to Pathology (surgical or derm) (03/22/2011 4:33 PM EST) AP Specimen 03/22/2011 4:33 PM EST 03/22/2011 4:33 PM EST Narrative CERNER MILLBRINAIUM - 03/22/2011 4:33 PM EST Specimen requisition ordered. ??Separate Pathology report to follow Luis Hester MD PATHOLOGY/CYTOLOGY ORDERABLES Performing Organization Address [facility] Co de Phone Number [facility] [employer] | [employer] documented in this encounter Visit Diagnoses Not on filedocumented in this encounter Administered Medications Inactive Administered Medications - up to 3 most recent administrations Medication Order MAR Action Action Date Dose Rate Site BUpivacaine-epiNEPHrine 0.25 %-1:200,000 injection ONCE PRN, Starting on Sun03/22/11 at 1456, Until Sun03/22/11 at 2138, Intra-Operative (Intra-Procedure), Routine Given 03/22/2011 2:56 PM EST 22.5 mg cellulose, oxidized (SURGICEL) 4 x 8 pad ONCE PRN, Starting on Sun03/22/11 at 1635, Until Sun03/22/11 at 213, Intra-Operative (Intra-Procedure), Routine Given 03/22/2011 4:35 PM EST 1 each 19- Surgical Site cyclobenzaprine (FLEXERIL) tablet 5 mg 5 mg, Oral, ONCE, 1 dose, On Sun03/22/11 at 1900, STAT Given 03/22/2011 6:54 PM EST 5 mg fentaNYL 50mcg/mL injection 25-50 mcg, Intravenous, EVERY 5 MIN PRN, Starting on Sun03/22/11 at 1714, Until Sun03/22/11 at 2137, Pain, for breakthrough pain, Hold for respiratory rate less than 10 per minute. Maximum dose: 250 mcg over one hour., PACU Recovery, Routine Given 03/22/2011 5:45 PM EST 50 mcg Given 03/22/2011 5:27 PM EST 50 mcg Given 03/22/2011 5:18 PM EST 50 mcg hydroCODone-acetaminophen (VICODIN) 5-500 mg per tablet 1-2 tablet 1-2 tablet, Oral, EVERY 6 HOURS PRN, Starting on Sun03/22/11 at 1714, Until Sun03/22/11 at 2137, Pain, Maximum dose of acetaminophen is 4000 mg from all sources in 24 hours., Routine Given 03/22/2011 5:48 PM EST 2 tablets lactated ringers infusion 1,000 mL 1,000 mL, at 100 mL/hr, Intravenous, CONTINUOUS, Starting on Sun03/22/11 at 1300, Until Sun03/22/11 at 213, Day of Surgery (Day of Procedure) New Bag 03/22/2011 1:00 PM EST 1,000 mLs 100 mL/hr lactated ringers infusion 1,000 mL 1,000 mL, at 100 mL/hr, Intravenous, CONTINUOUS, Starting on Sun03/22/11 at 1345, Until Sun03/22/11 at 2137, Day of Surgery (Day of Procedure) New Bag 03/22/2011 5:15 PM EST 1,000 mLs 100 mL/hr lidocaine (LIDODERM) 5 %(700 mg/patch) patch 1 patch 1 patch, Transdermal, ONCE, 1 dose, On Sun03/22/11 at 1900, Apply patch(es) for 12 hours, and then remove for 12 hours, STAT Given 03/22/2011 6:46 PM EST 1 patch 20-Other (document in comment section) promethazine (PHENERGAN) injection 6.25 mg 6.25 mg, Intravenous, ONCE PRN, Nausea, Starting on Sun03/22/11 at 1714, 1 dose, Until Sun03/22/11 at 1723, Dilute in 20 mL sodium chloride 0.9% and administer through a free flowing IV. Usual dose range 0.25-0.5 mg/kg/dose to a maximum of 25 mg/dose, PACU Recovery Given 03/22/2011 5:23 PM EST 6.25 mg scopolamine (TRANSDERM-SCOP) 1.5 mg patch 1 patch 1 patch, Transdermal, EVERY 72 HOURS, First dose on Sun03/22/11 at 1400, Until Discontinued, Routine Given 03/22/2011 2:00 PM EST 1 patch documented in this encounter Active and Recently Administered Medications Times are shown in EST. Scheduled Medication Order 03/20/2011 03/21/2011 03/22/2011 cyclobenzaprine (FLEXERIL) tablet 5 mg (COMPLETED) 5 mg, Oral, ONCE, 1 dose, On Sun03/22/11 at 1900, STAT 1854 (Given - Provid er: Bhumika Hurtado, TRE) lidocaine (LIDODERM) 5 %(700 mg/patch) patch 1 patch (COMPLETED)(Linked Group 1) 1 patch, Transdermal, ONCE, 1 dose, On Sun03/22/11 at 1900, Apply patch(es) for 12 hours, and then remove for 12 hours, STAT 1846 (Given - Provid er: Bhumika Hurtado RN - Comment: back of neck) scopolamine (TRANSDERM-SCOP) 1.5 mg patch 1 patch (CANCELED) 1 patch, Transdermal, EVERY 72 HOURS, First dose on Sun03/22/11 at 1400, Until Discontinued, Routine 1400 (Given - Provid er: Elham Arroyo RN) Continuous Medication Order 03/20/2011 03/21/2011 03/22/2011 lactated ringers infusion 1,000 mL (CANCELED) 1,000 mL, at 100 mL/hr, Intravenous, CONTINUOUS, Starting on Sun03/22/11 at 1300, Until Sun03/22/11 at 2138, Day of Surgery (Day of Procedure) 1300 (New Bag - Prov ider: Elham Arroyo RN) lactated ringers infusion 1,000 mL (CANCELED) 1,000 mL, at 100 mL/hr, Intravenous, CONTINUOUS, Starting on Sun03/22/11 at 1345, Until Sun03/22/11 at 2137, Day of Surgery (Day of Procedure) 1345 (Due)1715 (New Bag - Provider: Bhumika Hurtado RN) PRN Medication Order 03/20/2011 03/21/2011 03/22/2011 BUpivacaine-epiNEPHrine 0.25 %-1:200,000 injection (CANCELED) ONCE PRN, Starting on Sun03/22/11 at 1456, Until Sun03/22/11 at 2138, Intra-Operative (Intra-Procedure), Routine 1456 (Given - Provid er: Juan Ko MD - Comment: 9 ml) cellulose, oxidized (SURGICEL) 4 x 8 pad (CANCELED) ONCE PRN, Starting on Sun03/22/11 at 1635, Until Sun03/22/11 at 2137, Intra-Operative (Intra-Procedure), Routine 1635 (Given - Provid er: Juan Ko MD) fentaNYL 50mcg/mL injection (CANCELED) 25-50 mcg, Intravenous, EVERY 5 MIN PRN, Starting on Sun03/22/11 at 1714, Until Sun03/22/11 at 2137, Pain, for breakthrough pain, Hold for respiratory rate less than 10 per minute. Maximum dose: 250 mcg over one hour., PACU Recovery, Routine 1718 (Given - Provid er: Bhumika Hurtado RN)1727 (Given - Provider: Bhumika Hurtado, TRE)1745 (Given - Provider: Bhumika Hurtado RN) hydroCODone-acetaminophen (VICODIN) 5-500 mg per tablet 1-2 tablet 1-2 tablet, Oral, EVERY 6 HOURS PRN, Starting on Sun03/22/11 at 1714, Until Sun03/22/11 at 2138, Pain, Maximum dose of acetaminophen is 4000 mg from all sources in 24 hours., Routine 1748 (Given - Provid er: Bhumika Hurtado, RN) promethazine (PHENERGAN) injection 6.25 mg (COMPLETED) 6.25 mg, Intravenous, ONCE PRN, Nausea, Starting on Sun03/22/11 at 1714, 1 dose, Until Sun03/22/11 at 1723, Dilute in 20 mL sodium chloride 0.9% and administer through a free flowing IV. Usual dose range 0.25-0.5 mg/kg/dose to a maximum of 25 mg/dose, PACU Recovery 1723 (Given - Provid er: Bhumika Hurtado, TRE) Linked Groups Order Group 1: lidocaine (LIDODERM) 5 %(700 mg/patch) patch 1 patch (COMPLETED)Jump to med 1 patch, Transdermal, ONCE, 1 dose, On Sun03/22/11 at 1900, Apply patch(es) for 12 hours, and then remove for 12 hours, STAT And lidocaine (LIDODERM) patch REMOVAL (CANCELED) Transdermal, NIGHTLY, First dose on Sun03/22/11 at 2100, Until Discontinued, Remove Lidocaine Patch documented in this encounter Care Teams Occupational Health And Safety Adviser Relationship Specialty Start Date End Date None None PCP - General 02/23/11 05/09/11 documented as of this encounter"
--- OUTSIDE RECORDS SUMMARY | 2023-10-29 04:02 | XMS_ITS | Encounter Summary ---
Author Organization [facility] [place] [address] Care Team Providers Care Hand Cloth Examiner Name Role Phone None Primary Care Provider Unavailabl e Reason for Visit * Reason Onset Date Comments Advice Only 08/08/2012 Encounter Details Date Type Department Care Team (Late st Contact Info) Description 08/08/2012 Telephone Endocrinology at [facility], [place] [phone] Omayra Meredith LPN Advice Only Social History Tobacco Use Types Packs/Day Years Used Date Smoking Tobacco: Former Cigarettes 1 4 1 05/14/2007 - 03/14/2012 Smokeless Tobacco: Never Alcohol Use Standard [...] Telephone Encounter - Omayra Meredith LPN - 08/08/2012 10:57 AM EDT Patient calls is 26 weeks seen by OB today. Was told to call Dr Wallis for dose adjustmentdue to TSH. Per patient she is taking Lt4 300 mcg daily Results: TSH Status: Final result Abnormal 08/08/2012 10:12 AM Entry Date 08/08/2012 Component Results Component Value Range & Units Status TSH 0.03 (L) 0.27 - 4.20 mcIU/mL Final Per Dr Wallis Lt4 to be decreased to 200 mcg per day and TSH to be checked in 4 weeks. Patient agrees with plan of care will be here on September 02 for another appointment would like to have done then. Also patient asking that Rx go to [facility] in [facility] documented in this encounter Plan of Treatment Upcoming Encounters Date Type Department Care Team (Late st Contact Info) Description 05/23/2024 Hospital [place] [phone] Maite Malloy MD [facility] [address] OBSTETRICS [place] [address] documented as of this encounter Visit Diagnoses Not on filedocumented in this encounter Care Teams Hand Cloth Examiner Relationship Specialty Start Date End Date None None PCP - General 05/08/12 04/20/14 documented as of this encounter
--- OUTSIDE RECORDS SUMMARY | 2023-10-29 04:02 | XMS_ITS | Encounter Summary ---
Author Organization [facility] Address [facility] [place] [address] Care Team Providers Care Hazmat Cdl A Driver Name Role Phone None Primary Care Provider Unavailabl e Encounter Details Date Type Department Care Team (Late st Contact Info) Description 04/05/2011 Orders Only [place] [phone] Marlo Ko MD [facility] [place] [address] Social History Tobacco Use Types Packs/Day Years [...] Info) Description 05/23/2024 Hospital Encounter [place] [phone] Maite Malloy MD [facility] OBSTETRICS [place] [address] documented as of this encounter Visit Diagnoses Not on filedocumented in this encounter Care Teams Hazmat Cdl A Driver Relationship Specialty Start Date End Date None None PCP - General 02/23/11 05/09/11 documented as of this encounter
--- OUTSIDE RECORDS SUMMARY | 2023-10-29 04:02 | XMS_ITS | Encounter Summary ---
Author Organization [facility] [place] [address] Care Team Providers Care News Writer Name Role Phone None Primary Care Provider Unavailabl e Encounter Details Date Type Department Care Team (Late st Contact Info) Description 04/03/2011 Orders [place] [phone] Marlo Ko MD [facility] [place] [address] Follicular adenoma of thyroid gland (Primary Dx) Social History Tobacco Use Types [...] Contact Info) Description 05/23/2024 Hospital [place] [phone] Maite Malloy MD [facility] OBSTETRICS AND GYNECOLOGY [place], [place] [phone] documented as of this encounter Results * (ABNORMAL) TSH (05/10/2011 8:03 AM EST) TSH 111.10(H) 0.27 - 4.20 mcIU/mL [facility]OTTER[facility] Blood specimen (specimen) 05/10/2011 8:03 AM EST 05/10/2011 8:10 AM EST Marlo Ko MD CHEMISTRY ORDERABL ES Performing Organization Address [facility] Co de Phone Number [facility] * (ABNORMAL) T4 (05/10/2011 8:03 AM EST) T4, total 4.0(L) 5.1 - 10.8 mcg/dL [facility] Comment: Reference Range: [place] Cord Blood: ??6.9-14.4 mcg/dL Females: ??7.2-14.2 mcg/dL Pediatric ranges: ??Interpret with caution-ranges have not been verified Blood specimen (specimen) 05/10/2011 8:03 AM EST 05/10/2011 8:10 AM EST Marlo Ko MD CHEMISTRY ORDERABL ES Performing Organization Address [facility] Co de Phone Number [facility] documented in this encounter Visit Diagnoses Diagnosis Follicular adenoma of thyroid gland- Primary Benign neoplasm of thyroid glands documented in this encounter Care Teams News Writer Relationship Specialty Start Date End Date None None PCP - General 02/23/11 05/09/11 documented as of this encounter
--- OUTSIDE RECORDS SUMMARY | 2023-10-29 04:02 | XMS_ITS | Encounter Summary ---
Author Organization [facility] [place] [address] Care Team Providers Care Voice Teacher Name Role Phone Mya Varghese MD Primary Care Provider [phone] Encounter Details Date Type Department Care Team (Late st Contact Info) Description 04/12/2012 Orders Only Obstetrics [place] [phone] Estelle Ribeiro RN Hypothyroidism, postsurgical (Primary Dx) Social History Tobacco Use Types Packs/Day Years Used Date Smoking Tobacco: Former Cigarettes Q uit: 03/14/2011 Sex and Gender Information Value Date Recorded Sex Assigned at Female 10/12/2023 9:44 AM EDT Gender Identity Female 10/12/2023 9:44 AM EDT Sexual Orientation Straight 10/12/2023 9: 44 AM EDT documented as of this encounter Progress Notes * Estelle Ribeiro RN - 04/12/2012 11:24 AM EST Andree has been informed that her levothyroxine has been increased by to 250 mcg daily. She is to take 1- levothyroxine 200 mcg tablet plus 1- levothyroxine 50 mcg tablet daily. It is ok to use up her current rx for levothyroxine 25 mcg tablets, taking x 2 plus. Appt set up for MFM/Endo consult due to high TSH levels in . documented in this encounter Plan of Treatment Upcoming Encounters Date Type Department Care Team (Late st Contact Info) Description 05/23/2024 Hospital Encounter [place] [phone] Maite Maloly MD [facility] OBSTETRICS [place] [address] documented as of this encounter Visit Diagnoses Diagnosis Hypothyroidism, postsurgical- Primary Postsurgical hypothyroidism documented in this encounter Care Teams Voice Teacher Relationship Specialty Start Date End Date Mya Varghese MD [address] [place] [address] PCP - General 05/10/11 05/07/12 documented as of this encounter
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
--- OUTSIDE RECORDS SUMMARY | 2023-10-29 04:02 | XMS_ITS | Encounter Summary ---
Author Organization [facility] Address [facility] [place] [address] Care Team Providers Care Data Modeling Architect Name Role Phone None Primary Care Provider Unavailabl e Encounter Details Date Type Department Care Team (Late st Contact Info) Description 08/03/2012 Telephone Obstetrics [place] [address] Mely Klein MD [facility] DR OBSTETRICS & [place] [address] Social History Tobacco Use Types Packs/Day Years [...] encounter Miscellaneous Notes * Telephone Encounter - Mely Klein MD - 08/03/2012 2:59 PM EDT Received call from Andree to report sharp shooting vaginal pains, started with one two hours ago then resolved, now more frequent for the last 30 minutes. - LOF, -VB, some decreased FM today, and baby feels like it is in my crotch. Encouraged her to be seen for triage visit to r/o labor. She may come here if she can or she may go to [facility] for initial evaluation because she lives so far away, but she will be seen today. documented in this encounter Plan of Treatment Upcoming Encounters Date Type Department Care Team (Late st Contact Info) Description 05/23/2024 [place] [address] Maite Maloly MD [facility] DR OBSTETRICS [place] [address] documented as of this encounter Visit Diagnoses Not on filedocumented in this encounter Care Teams Data Modeling Architect Relationship Specialty Start Date End Date None None PCP - General 05/08/12 04/20/14 documented as of this encounter
--- OUTSIDE RECORDS SUMMARY | 2023-10-29 04:02 | XMS_ITS | Encounter Summary ---
Author Organization [facility] [place] [address] Care Team Providers Care Belt Builder Helper Name Role Phone None Primary Care Provider Unavailabl e Reason for Visit * Reason Comments Establish Care Encounter Details Date Type Department Care Team (Latest Contact Info) Description 05/22/2012 9:30 AM EST Initial Obstetrics [place] [address] Walt Bay MD [facility] DR OBSTETRICS & [place] [address] GA: 15w1d Discharge Disposition: Home Social History Tobacco Use [...] Reading Time Taken Comments Blood Pressure 116/60 05/22/2012 9:21 AM EST Pulse - - Temperature - - Respiratory Rate - - Oxygen Saturation - - Inhaled Oxygen Concentration - - Weight 87.5 kg (193 lb) 05/22/2012 9:21 AM EST Height 172.7 cm (5' 8) 05/22/2012 9:21 AM EST Body Mass Index 29.35 05/22/2012 9:21 AM EST documented in this encounter Progress Notes * Walt Bay MD - 05/22/2012 11:48 AM EST The patient presents for initial care visit, as transfer of care from [facility] due to anti-Estuardo antibodies, 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 She is also surgically hypothyroid, and is follwed by Dr. Wallis here at [facility]. The plan is to keep TSH below 2.5; monthly TSH is ordered at [facility]. The patient's mother is an RN at [employer], and occasionally works float on the birthing pavilion. Obstetric/gynecologic, medical, surgical, family and social history discussed. THe patient reports that she had an unattended delivery of a 20 week fetus; when pressed for details she states that sheis uncertain regarding the gestational age, and that it may have been between 15 and 20 weeks. She also reports recent (past 8 months) use of opioids obtained on the street; she has never used needles, nor traded sex for drugs. She occasionally smokes marijuana, but is trying to abstain due to her . She is no longer involved with the FOB. The group practice, resident and medical student involvement, and plan of care were reviewed with the patient, and all questions were answered. Plan for ultrasound in one week, with cervical length, due to possible history of 20 week loss. Patient meeting with Félix Richardson MS, today, due to sister with possible [facility]. Will review aneuploidy screening options at that time. She has not yet had any screening. I reviewed with the patient and her mother that anti-Estuardo antibodies are of the IgM type, and therefore do not cross the placenta. Further, fetuses do not express the Estuardo antigen; it becomes expressed in inspector conveyor line. There is no risk of hemolytic disease of the fetus or due to anti-Estuardo antibodies; titers do not need to be obtained or followed. FHT obtained. Possible movement. No contractions/ leaking fluid / bleeding / pain. * Myles Irwin RN - 05/22/2012 9:21 AM EST Here to establish care in transfer of care from [facility] d/t hypothyroidism. See notes from Raghu and Kadi. Will continue to have blood tests monthly in [facility]. Given Your Journal booklet, DVD on . Will need to do QUAD. 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 documented in this encounter Plan of Treatment Upcoming Encounters Date Type Department Care Team (Late st Contact Info) Description 05/23/2024 Hospital Encounter [place] [address] Maite Malloy MD [facility] OBSTETRICS [place] [address] documented as of this encounter Results * US OB Targeted Morphology (06/12/2012 10:55 AM EST) Anatomical Region Laterality Modality Pelvis, Abdomen Ultrasound 06/12/2012 10:5 5 AM EST Narrative 06/12/2012 11:08 AM EST ?OBSTETRICS REPORT ? (Signed Final 06/12/2012 11:07 am) Patient Info ID: ? [id number] ? : ??[birth year] (21 yrs) Name: ? SORCHA E ?Visit Date: 06/12/2012 10:49 am ? LOUISE- ? FRANK Performed By Performed By: ?Itzel Lezama RDMS Attending: ? Mathew Lalita LIMA Referred By: ? E MELANY BAY MD Service(s) Provided [facility] - Targeted Morphology - Genetics - ? [id number] UOBTV - Viability - Cervical Length - Transvaginal - ??[id number] Indications hypothyroid; possible history of 20 week loss, Cervical length. Evaluation Num Of Fetuses: ?1 Heart Rate: ??141 ?bpm Cardiac Activity: ??Observed, normal rhythm Presentation: ?Cephalic Placenta: ?Anterior P. Cord ?Within Normal Limits Insertion: Amniotic Fluid UDAY FV: ?Normal -------- Biometry -------- BPD: ?47.1 ??mm ?G. Age: ?? 20w 2d OFD: ?60 ??mm HC: ?169.9 ??mm ?G. Age: ?? 19w 4d AC: ?144.2 ??mm ?G. Age: ?? 19w 5d FL: ? 29.9 ??mm ?G. Age: ?? 19w 2d HUM: ?28.6 ??mm ?G. Age: ?? 19w 2d CER: ?19.8 ??mm ?G. Age: ?? 18w 6d NFT: ? 3.7 ??mm NB: ?7.1 ??mm CI: ?78.5 ??% ? 70 - 86 FL/HC: ? 17.6 ??% ? 15.8 - 18 HC/AC: ? 1.18 ?1.07 - 1.29 FL/BPD: ?63.5 ??% FL/AC: ? 20.7 ??% ? 20 - Est. FW: ? 299 ?? gm ?? 0 lb 11 oz Gestational Age LMP: ? 16w 0d ?Date: ??02/21/12 ? ZAYDA: ?? 11/27/12 U/S Today: ? 19w 5d ?ZAYDA: ?? 11/01/12 Best: ?18w 1d ?? Det. By: ??Early ?ZAYDA: ?? 11/12/12 ? Ultrasound ? (04/02/12) Targeted Anatomy Central Nervous System Calvarium: ?Within Normal Limits Intracranial: ? Within Normal Limits Lat. Ventricles: ?Within Normal Limits Cerebellum: ? Within Normal Limits Choroid Plexus: ? Within Normal Limits Cisterna Magna: ? Within Normal Limits Spine Cervical: ? Visualized Thoracic: ? Visualized Lumbar: ? Visualized Sacral: ? Visualized Head/Neck Face: ? Within Normal Limits Nuchal Fold: ?Within Normal Limits Thorax Four Chamber: ? Within Normal Limits Cardiac Motion: ? Normal Rhythm R Outflow Tract: ?Visualized L Outflow Tract: ?Visualized Cardiac [place]: ? Visualized Diaphragm: ?Visualized Abdomen Ventral Wall: ? Visualized Stomach: ?Visualized Lt Kidney: ?Visualized Rt Kidney: ?Visualized Bladder: ?Visualized Extremities Lt Humerus: ? Within Nomal Limits Rt Humerus: ? Within Normal Limits Lt Forearm: ? Within Normal Limits Rt Forearm: ? Within Normal Limits Lt Hand: ?Within Normal Limits Rt Hand: ?Within Normal Limits Lt Femur: ? Within Normal Limits Rt Femur: ? Within Normal Limits Lt Lower Leg: ? Within Normal Limits Rt Lower Leg: ? Within Normal Limits Lt Foot: ?Visualized Rt Foot: ?Visualized Other Umbilical Cord: ? 3 vessel cord Cord Insertion: ? WIthin Normal Limits Comment: ? Nasal Bone: Visualized Cervix Uterus Adnexa Cervical Length: ? 3.2 ?cm Cervix: ?No change with fundal pressure Left Ovary: ?Visualized Right Ovary: ?? Visualized Impression 2nd Trimester - Cervical Length - Targeted Morphology- Summary Single intrauterine with a gestational age of 18w 1d based on early ultrasound. Composite age based on the current ultrasound alone is 19w 5d. Cervical length measures 3.2 cm. No change with fundal pressure. Amniotic fluid volume is normal Current growth parameters are consistent indicating normal growth. Detailed anatomic evaluation was performed and no structural abnormalities are noted. I ??viewed the images and agree with the above interpretation. Thank you for allowing us to participate in the care of PREETHI Godoy MAXINE. Please do not hesitate to call if you have any questions. ?Lalita Carmona MD Electronically Signed Final Report ?? 06/12/2012 11:07 am Procedure Note Lalita Carmona MD - 06/12/2012 OBSTETRICS REPORT (Signed Final 06/12/2012 11:07 am) Patient Info ID: [id number] : [birth year] (21 yrs) Name: PREETHI Godoy Visit Date: 06/12/2012 10:49 am MARIO MARIE Performed By Performed By: Itzel Lezama RDMS Attending: Lalita Carmona MD Referred By: Walt BAY MD Service(s) Provided [facility] - Targeted Morphology - Genetics - [id number] UOBTV - Viability - Cervical Length - Transvaginal - [id number] Indications hypothyroid; possible history of 20 week loss, Cervical length. Evaluation Num Of Fetuses: 1 Heart Rate: 141 bpm Cardiac Activity: Observed, normal rhythm Presentation: Cephalic Placenta: Anterior P. Cord Within Normal Limits Insertion: Amniotic Fluid UDAY FV: Normal -------- Biometry -------- BPD: 47.1 mm G. Age: 20w 2d OFD: 60 mm HC: 169.9 mm G. Age: 19w 4d AC: 144.2 mm G. Age: 19w 5d FL: 29.9 mm G. Age: 19w 2d HUM: 28.6 mm G. Age: 19w 2d CER: 19.8 mm G. Age: 18w 6d NFT: 3.7 mm NB: 7.1 mm CI: 78.5 % 70 - 86 FL/HC: 17.6 % 15.8 - 18 HC/AC: 1.18 1.07 - 1.29 FL/BPD: 63.5 % FL/AC: 20.7 % 20 - 24 Est. FW: 299 gm 0 lb 11 oz Gestational Age LMP: 16w 0d Date: 02/21/12 ZAYDA: 11/27/12 U/S Today: 19w 5d ZAYDA: 11/01/12 Best: 18w 1d Det. By: Early ZAYDA: 11/12/12 Ultrasound (04/02/12) Targeted Anatomy Central Nervous System Calvarium: Within Normal Limits Intracranial: Within Normal Limits Lat. Ventricles: Within Normal Limits Cerebellum: Within Normal Limits Choroid Plexus: Within Normal Limits Cisterna Magna: Within Normal Limits Spine Cervical: Visualized Thoracic: Visualized Lumbar: Visualized Sacral: Visualized Head/Neck Face: Within Normal Limits Nuchal Fold: Within Normal Limits Thorax Four Chamber: Within Normal Limits Cardiac Motion: Normal Rhythm R Outflow Tract: Visualized L Outflow Tract: Visualized Cardiac [place]: Visualized Diaphragm: Visualized Abdomen Ventral Wall: Visualized Stomach: Visualized Lt Kidney: Visualized Rt Kidney: Visualized Bladder: Visualized Extremities Lt Humerus: Within Nomal Limits Rt Humerus: Within Normal Limits Lt Forearm: Within Normal Limits Rt Forearm: Within Normal Limits Lt Hand: Within Normal Limits Rt Hand: Within Normal Limits Lt Femur: Within Normal Limits Rt Femur: Within Normal Limits Lt Lower Leg: Within Normal Limits Rt Lower Leg: Within Normal Limits Lt Foot: Visualized Rt Foot: Visualized Other Umbilical Cord: 3 vessel cord Cord Insertion: WIthin Normal Limits Comment: Nasal Bone: Visualized Cervix Uterus Adnexa Cervical Length: 3.2 cm Cervix: No change with fundal pressure Left Ovary: Visualized Right Ovary: Visualized Impression 2nd Trimester - Cervical Length - Targeted Morphology- Summary Single intrauterine with a gestational age of 18w 1d based on early ultrasound. Composite age based on the current ultrasound alone is 19w 5d. Cervical length measures 3.2 cm. No change with fundal pressure. Amniotic fluid volume is normal Current growth parameters are consistent indicating normal growth. Detailed anatomic evaluation was performed and no structural abnormalities are noted. I viewed the images and agree with the above interpretation. Thank you for allowing us to participate in the care of PREETHI HUMMEL. Please do not hesitate to call if you have any questions. Lalita Carmona MD Electronically Signed Final Report 06/12/2012 11:07 am E Melany Bay MD IMG US OB ORDERAB LES documented in this encounter Visit Diagnoses Diagnosis , supervision of, high-risk- Primary Unspecified high-risk , supervision of, high-risk Unspecified high-risk documented in this encounter Care Teams Belt Builder Helper Relationship Specialty Start Date End Date None None PCP - General 05/08/12 04/20/14 documented as of this encounter
--- OUTSIDE RECORDS SUMMARY | 2023-10-29 04:02 | XMS_ITS | Encounter Summary ---
Author Organization [facility] Address [facility] [address] Care Team Providers Care Science Professor Name Role Phone None Primary Care Provider Unavailabl e Reason for Referral * Psychiatric (Routine) - Closed Specialty Diagnoses / Procedures Referred By Lamont t Referred To Contact Psychiatry Diagnoses Unspecified high-risk Lalita Carmona MD [facility] DR OBSTETRICS & [place] [address] Yaneth Griffith MD [facility] [place] [address] Referral ID Status Reason Start Date Expiration Date V isits Requested Visits Authorized [id number] Closed Consult, Test & Treat 07/19/2012 01/15/2013 1 1 Reason for Visit * Reason Comments Routine Visit Encounter Details Date Type Department Care Team (Late st Contact Info) Description 07/19/2012 11:15 AM EDT Routine Obstetrics [place] [address] Lalita Carmona MD [facility] DR OBSTETRICS & [place] [address] GA: 23w3d Discharge Disposition: Home Social History Tobacco Use [...] Sign Reading Time Taken Comments Blood Pressure 104/70 07/19/2012 11:27 AM EDT Pulse - - Temperature - - Respiratory Rate - - Oxygen Saturation - - Inhaled Oxygen Concentration - - Weight 93.9 kg (207 lb) 07/19/2012 11:27 AM EDT Height - - Body Mass Index 31.47 05/22/2012 9:21 AM EST documented in this encounter Progress Notes * Lalita Carmona MD - 07/19/2012 1:33 PM EDT FM felt, no LOF, no bleeding. Has some cramping and c/o pain in tailbone and buttocks when she stands TVCL US today 3.7-4.0cm, no funneling. Declined cervix check. GCT, CBC, TSH ordered. Offered psychiatry for depression. She became tearful and states she does not want to be on antidepressants but knows she should. No SI or HI. F/u 4 weeks. * Mandie Morillo LNA - 07/19/2012 11:28 AM EDT The OB identification card, Glucose screening directions (if applicable) along with the Guide to [place] was given to the patient. The materials were discussed and the patient was encouraged to read the information and direct questions to the provider. documented in this encounter Plan of Treatment Upcoming Encounters Date Type Department Care Team (Late st Contact Info) Description 05/23/2024 [place] [address] Maite Malloy MD [facility] [address] OBSTETRICS [place] [address] Scheduled Referrals Name Type Priority Associated Diagnoses Order Schedule Referral to Psychiatry Outpatient Referral Routine Unspecified high-risk Ordered: 07/19/2012 documented as of this encounter Results * (ABNORMAL) TSH (08/08/2012 9:29 AM EDT) TSH 0.03(L) 0.27 - 4.20 mcIU/mL [facility] Blood specimen (specimen) 08/08/2012 9:29 AM EDT 08/08/2012 9:33 AM EDT Narrative Resulting Agency Comment Spec In Lab Lalita Carmona MD CHEMISTRY ORDERABL ES Performing Organization Address [facility] Phone Number [facility] * Hemoglobin and Hematocrit, blood (08/08/2012 9:29 AM EDT) Hemoglobin 12.2 11.2 - 15.7 gm/dL [facility] MILLENNIUM Hematocrit 35.4 34.0 - 45.0 % [facility] MILL[facility] Blood specimen (specimen) 08/08/2012 9:29 AM EDT 08/08/2012 9:33 AM EDT Narrative Resulting Agency Comment Spec In Lab Lalita Carmona MD HEMATOLOGY ORDERAB LES Performing Organization Address [facility] Phone Number [facility] * Glucose 1 Hour Post Prandial (08/08/2012 9:29 AM EDT) Glucose, 1Hr PP 128 mg/dL [facility] MILLENNIUM Blood specimen (specimen) 08/08/2012 9:29 AM EDT 08/08/2012 9:33 AM EDT Narrative Resulting Agency Comment Spec In Lab Lalita Carmona MD CHEMISTRY ORDERABL ES Performing Organization Address [facility] Phone Number [facility] documented in this encounter Visit Diagnoses Diagnosis Unspecified high-risk - Primary documented in this encounter Care Teams Science Professor Relationship Specialty Start Date End Date None None PCP - General 05/08/12 04/20/14 documented as of this encounter
--- OUTSIDE RECORDS SUMMARY | 2023-10-29 04:02 | XMS_ITS | Encounter Summary ---
Author Organization [facility] [place] [address] Care Team Providers Care Surveyor'S Assistant Name Role Phone None Primary Care Provider Unavailabl e Encounter Details Date Type Department Care Team (Late st Contact Info) Description 03/23/2011 Orders Only [place] [id number] Chloé Santa, RN Social History Tobacco Use Types Packs/Day [...] Contact Info) Description 05/23/2024 Hospital [place] [address] Maite Malloy MD [facility] OBSTETRICS [place] [address] documented as of this encounter Visit Diagnoses Not on filedocumented in this encounter Care Teams Surveyor'S Assistant Relationship Specialty Start Date End Date None None PCP - General 02/23/11 05/09/11 documented as of this encounter
--- OUTSIDE RECORDS SUMMARY | 2023-10-29 04:02 | XMS_ITS | Encounter Summary ---
Author Organization [facility] [place] [address] Care Team Providers Care Web Site Administrator Name Role Phone None Primary Care Provider Unavailabl e Reason for Visit * Reason Onset Date Comments Medication Refill 05/23/2012 Encounter Details Date Type Department Care Team (Late st Contact Info) Description 05/23/2012 Refill [place] [phone] Griffin Wallis III, MD [facility] [place] [address] Hypothyroidism (Primary Dx) Social History Tobacco Use [...] Contact Info) Description 05/23/2024 Hospital [place] [phone] Maite Malloy MD [facility] [place] [address] documented as of this encounter Visit Diagnoses Diagnosis Hypothyroidism- Primary Unspecified hypothyroidism documented in this encounter Care Teams Web Site Administrator Relationship Specialty Start Date End Date None None PCP - General 05/08/12 04/20/14 documented as of this encounter
--- OUTSIDE RECORDS SUMMARY | 2023-10-29 04:02 | XMS_ITS | Encounter Summary ---
Author Organization [facility] Address [facility] [place] [address] Care Team Providers Care Sheet Metal Technician Name Role Phone None Primary Care Provider Unavailabl e Reason for Referral * Psychiatric (Routine) - Closed Specialty Diagnoses / Procedures Referred By Lamont t Referred To Contact Psychiatry Diagnoses Unspecified high-risk Lalita Carmona MD [facility] DR OBSTETRICS & [place] [address] Yaneth Griffith MD [facility] [place] [address] Referral ID Status Reason Start Date Expiration Date V isits Requested Visits Authorized [id number] Closed Consult, Test & Treat 08/08/2012 02/04/2013 1 1 Reason for Visit * Reason Comments Routine Visit Encounter Details Date Type Department Care Team (Late st Contact Info) Description 08/08/2012 10:00 AM EDT Routine Obstetrics [place] [address] Lalita Carmona MD [facility] DR OBSTETRICS & [place] [address] GA: 26w2d Discharge Disposition: Home Social History Tobacco Use [...] Sign Reading Time Taken Comments Blood Pressure 124/72 08/08/2012 9:56 AM EDT Pulse - - Temperature - - Respiratory Rate - - Oxygen Saturation - - Inhaled Oxygen Concentration - - Weight 92.4 kg (203 lb 11.2 oz) 08/08/2012 9:56 AM EDT Height - - Body Mass Index 30.97 05/22/2012 9:21 AM EST documented in this encounter Progress Notes * Lalita Carmona MD - 08/08/2012 2:21 PM EDT FM felt. No LOF. No bleeding. No contractions. C/o back discomfort. C/o inability to sleep for weeks. C/o poor appetite and food aversions. Lost 4 pounds. TSH 0.03. Patient to call endocrine for dosereduction as likely over replaced causing symptoms. GCT and CBC normal. Has not gotten a call from p sychiatry after referral made last visit. Will assist in making this appointment. F/u ~2 weeks documented in this encounter Plan of Treatment Upcoming Encounters Date Type Department Care Team (Late st Contact Info) Description 05/23/2024 Hospital [place] [address] Maite Malloy MD [facility] [address] [place]STET[place] [address] Scheduled Referrals Name Type Priority Associated Diagnoses Order Schedule Referral to Psychiatry Outpatient Referral Routine Unspecified high-risk Ordered: 08/08/2012 documented as of this encounter Procedures Procedure Name Priority Date/Time Associated Diagnosis Comments GLUCOSE 1 HOUR POST PRANDIAL Routine 08/08/2012 9:29 AM EDT Unspecified high-risk HEMOGLOBIN AND HEMATOCRIT, BLOOD Routine 08/08/2012 9:29 AM EDT Unspecified high-risk TSH Routine 08/08/2012 9:29 AM EDT Unspecified high-risk documented in this encounter Results * (ABNORMAL) TSH (08/08/2012 9:29 AM EDT) TSH 0.03(L) 0.27 - 4.20 mcIU/mL [facility] MILLENNIUM Blood specimen (specimen) 08/08/2012 9:29 AM EDT 08/08/2012 9:33 AM EDT Narrative Resulting Agency Comment Spec In Lab Lalita Carmona MD CHEMISTRY ORDERABL ES Performing Organization Address [facility] de Phone Number [facility] TORINENNIUM * Hemoglobin and Hematocrit, blood (08/08/2012 9:29 AM EDT) Hemoglobin 12.2 11.2 - 15.7 gm/dL [facility] MILLENNIUM Hematocrit 35.4 34.0 - 45.0 % [facility] MILLENNIUM Blood specimen (specimen) 08/08/2012 9:29 AM EDT 08/08/2012 9:33 AM EDT Narrative Resulting Agency Comment Spec In Lab Lalita Carmona MD HEMATOLOGY ORDERAB LES Performing Organization Address [facility] de Phone Number [facility] * Glucose 1 Hour Post Prandial (08/08/2012 9:29 AM EDT) Glucose, 1Hr PP 128 mg/dL [facility] MILLENNIUM Blood specimen (specimen) 08/08/2012 9:29 AM EDT 08/08/2012 9:33 AM EDT Narrative Resulting Agency Comment Spec In Lab Lalita Carmona MD CHEMISTRY ORDERABL ES Performing Organization Address [facility] Co de Phone Number [facility] documented in this encounter Visit Diagnoses Diagnosis Unspecified high-risk - Primary documented in this encounter Care Teams Sheet Metal Technician Relationship Specialty Start Date End Date None None PCP - General 05/08/12 04/20/14 documented as of this encounter
--- OUTSIDE RECORDS SUMMARY | 2023-10-29 04:02 | XMS_ITS | Encounter Summary ---
Author Organization [facility] [place] [place] [address] Care Team Providers Care Trash Hauler Name Role Phone None Primary Care Provider Unavailabl e Reason for Visit * Reason Comments Family History sister with possible LCHAD deficiency Encounter Details Date Type Department Care Team (Late st Contact Info) Description 05/22/2012 10:00 AM EST Office Visit Obstetrics [place] [address] Félix Richardson, [facility] OBSTETRICS & [place] [address] Family history of metabolic disease (Primary Dx); Genetic counseling Social History Tobacco Use Types Packs/Day Years [...] as of this encounter Progress Notes * Félix Richardson, MS - 05/22/2012 10:17 AM EST GENETIC COUNSELING NOTE Andree Walt Artislliams was referred for genetic counseling by Maite Marks MD. She was accompanied to the visit by her mother, Carmina Hummel. Chief Complaint Patient presents with ??? Family History sister with possible LCHAD deficiency Past Medical History Diagnosis Date ??? Migraine 02/23/2011 None in 3-4 years ??? Anxiety sees therapist ??? Irritable bowel syndrome ??? Asthma Triggers are cold, exercise. Used steroids with episodes of bronchitis.. Asymptomatic for a year Intubated once when 18 months with bronchiolitis ??? Hypothyroidism ??? Anemia not on meds ??? Depression 02/23/2011 not on meds or in counseling ??? Varicella Family History Problem Relation Age of Onset ??? Thyroid Disease Sister ??? Developmental Disorder Brother dyspraxia ??? NOS GENETIC SYNDROMES Sister possible LCHAD deficiency OB History Grav Para Term TAB SAB Ect Mult Living 3 2 Estimated Date of Delivery: 11/12/2012 based on ultrasound dating (8w0d on 04/02/2012). Assessment Andree is a 21 y.o. female currently at 15w1d by ultrasound dating with a family history of possible LCHAD deficiency. Discussion 1. Family history of possible LCHAD deficiency: Andree's mother provided written authorization to review the [facility] medical records of Andree's sister, Ana Hummel ( 03/27/1999). 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 She then had numerous follow-up studies, but most of the results are not available in the electronic medical record. 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 She had no metabolic follow-up until 07/12/2010 when she Lino Peters MD. Dr. Peters noted that Ana's diagnosis was unclear. He planned to review Ana's lab results in her paper chart and recommended genetic testing if it had not been done. Today, Andree's mother shared that she has not received any additional information from Dr. Peters since that time. They had decided not to pursue genetic testing because of the potential costs. LCHAD deficiency is a fatty acid oxidation disorder characterized by early-onset cardiomyopathy, hypoglycemia, neuropathy, and pigmentary retinopathy, and sudden . LCHAD deficiency in a fetus may be associated with severe maternal illness during . These maternal illnesses include acute fatty liver (AFLP) syndrome; hypertension or hemolysis, elevated liver enzymes, and low platelets (HELLP) syndrome; and hyperemesis gravidum. LCHAD deficiency is inherited in an autosomal recessive manner. If Andree's sister has LCHAD deficiency, then Andree's chance of being a carrier would be 2 in 3 (67%). If her sister is only a carrierof LCHAD deficiency, then Andree's chance of being a carrier would be 1 in 2 (50%). In either case,we would expect Andree's chance of having a child with LCHAD deficiency to be less than 1%; a more precise risk estimate is not possible due to limited data about the general carrier frequency of this rare disease. Fully informative carrier testing is only possible if the disease-causing mutation has been identified in the family. If it was not possible to test Andree's sister, we could consider testing Andree with the understanding that a negative result would not completely eliminate her carrier risk. However, even if her sister had informative genetic testing, Andree would not be interested in carrier testing or diagnosis. Additionally, the father of the baby is not involved, and Andree believes that he would be unwilling to be tested if she was found to be a carrier. We discussed that screening for fatty acid oxidation disorders is a routine part of screening in every state. I provided Andree with written information about LCHAD deficiency from [employer] (www. screening.info), which includes a list of the symptoms of maternal illness that can resultfrom LCHAD deficiency. 2. Quad screen: At Andree's previous appointments today, she indicated that she would like to have a quad screen. We reviewed this testing in detail. Andree feels that it would be very important to be prepared for the possibility of having a child with a disability, although she indicated that she would not consider having an amniocentesis. Although Andree was clear that she wanted to have a quad screen, she refused to have her blood drawn today. I informed her that it would be helpful to have the results prior to her morphology ultrasound, which is scheduled for her next visit on 06/12/2012. Again, she refused to have it done today. I offered to give her the paperwork so that she could come in another day, but Andree does not expect to be in the area again before her next appointment. I invited her to call if her plans change and she would like to come in to have her blood drawn. Plan ?? Andree is not interested is pursuing carrier testing for LCHAD deficiency. ?? Andree would like to have a quad screen, but she refused to have her blood drawn for this test today. This should be readdressed at her next visit. documented in this encounter Miscellaneous Notes * Miscellaneous - Provider, Scanning - 07/22/2012 8:51 AM EDT documented in this encounter Plan of Treatment Upcoming Encounters Date Type Department Care Team (Late st Contact Info) Description 05/23/2024 [place] [address] Maite Malloy MD [facility] [address] OBSTET[place]ICS [place] [address] documented as of this encounter Visit Diagnoses Diagnosis Family history of metabolic disease- Primary Family history of other endocrine and metabolic diseases Genetic counseling documented in this encounter Care Teams Trash Hauler Relationship Specialty Start Date End Date None None PCP - General 05/08/12 04/20/14 documented as of this encounter
--- OUTSIDE RECORDS SUMMARY | 2023-10-29 04:02 | XMS_ITS | Encounter Summary ---
Author Organization [facility] Address [facility] [place] [address] Care Team Providers Care Government Clerk Name Role Phone None Primary Care Provider Unavailabl e Encounter Details Date Type Department Care Team (Late st Contact Info) Description 07/27/2012 Telephone Obstetrics [place] [address] Al Bhatti MD [facility] [address] OBSTETRICS & [place] [address] Social History Tobacco Use Types Packs/Day Years [...] encounter Miscellaneous Notes * Telephone Encounter - Al Bhatti MD - 07/27/2012 7:22 PM EDT Telephone Note Caller: patient Time of Call: 7:22 PM Reason for Call: feeling uwell S: Andree Hummel is a 22 y.o. female at 24w4d who calls to report that todayshe has been feeling malaise, tired and lightheaded. She has been tolerating small amounts of PO throughout the day. Has had a cough for a few days that is productive of yellow/clear sputum. Has feltchills once today. Took temperature yesterday and it was 99.6. No sick contacts. No emesis. She has pain along her right side when she coughs. Feels very mild cramping when the baby shifts. Normal movement. No vaginal bleeding. A/P: 24w4d, GA (h/o 21 wk loss) who likely has viral URI. Has taken tylenol with no effect.Recommended, rest, hydration, and Robitussin for cough. Advised to take her temp when she is feeling chills. Will call us if she has fever >100.4 or if symptoms worsening. Will call for increasing, regular cramping/ctxs. MD AL BUENROSTRO MD OBGyn PGY3 documented in this encounter Plan of Treatment Upcoming Encounters Date Type Department Care Team (Late st Contact Info) Description 05/23/2024 [place] [address] Maite Malloy MD [facility] [address] OBSTETRICS [place] [address] documented as of this encounter Visit Diagnoses Not on filedocumented in this encounter Care Teams Government Clerk Relationship Specialty Start Date End Date None None PCP - General 05/08/12 04/20/14 documented as of this encounter
--- OUTSIDE RECORDS SUMMARY | 2023-10-29 04:02 | XMS_ITS | Encounter Summary ---
Author Organization [facility] [place] [address] Care Team Providers Care Ocean Rescue Lieutenant Name Role Phone None Primary Care Provider Unavailabl e Reason for Visit * Reason Onset Date Comments Medication Refill 08/08/2012 Encounter Details Date Type Department Care Team (Late st Contact Info) Description 08/08/2012 [place] [phone] Griffin Wallis III, MD [facility] [place] [address] Hypothyroidism (Primary Dx) Social History Tobacco Use [...] Contact Info) Description 05/23/2024 [place] [phone] Maite Malloy MD [facility] OBST[place]ICS [place] [address] documented as of this encounter Visit Diagnoses Diagnosis Hypothyroidism- Primary Unspecified hypothyroidism documented in this encounter Care Teams Ocean Rescue Lieutenant Relationship Specialty Start Date End Date None None PCP - General 05/08/12 04/20/14 documented as of this encounter
--- OUTSIDE RECORDS SUMMARY | 2023-10-29 04:02 | XMS_ITS | Encounter Summary ---
Author Organization [facility] [place] [address] Care Team Providers Care Carbon Coater Machine Operator Name Role Phone None Primary Care Provider Unavailabl e Reason for Visit * Reason Onset Date Comments Medication Refill 06/04/2012 Encounter Details Date Type Department Care Team (Late st Contact Info) Description 06/04/2012 Ref[place] [phone] Griffin Wallis III, MD [facility] [place] [address] Hypothyroidism (Primary Dx) Social History Tobacco Use [...] Contact Info) Description 05/23/2024 [place] [phone] Maite Malloy MD [facility] OBSTETRICS [place] [address] documented as of this encounter Visit Diagnoses Diagnosis Hypothyroidism- Primary Unspecified hypothyroidism documented in this encounter Care Teams Carbon Coater Machine Operator Relationship Specialty Start Date End Date None None PCP - General 05/08/12 04/20/14 documented as of this encounter
--- OUTSIDE RECORDS SUMMARY | 2023-10-29 04:02 | XMS_ITS | Encounter Summary ---
Author Organization Formerly [facility] [place] [address] Care Team Providers Care Freelance Operator Name Role Phone None Primary Care Provider Unavailabl e Encounter Details Date Type Department Care Team (Latest Contact Info) Description 09/03/2012 7:12 PM EDT - 09/05/2012 10:55 AM EDT [place] [address] Lalita Quan MD [facility] [address] OBSTETRICS [place] [address] Mely Mccord MD [facility] DR OBSTETRICS & [place] [address] Hypothyroidism (Primary Dx); Threatened labor, antepartum Discharge Disposition: Home Social [...] Sign Reading Time Taken Comments Blood Pressure 112/64 09/05/2012 7:56 AM EDT Pulse 72 09/05/2012 7:56 AM EDT Temperature 36.7 ??C (98.1 ??F) 09/05/2012 7:56 AM ED T Respiratory Rate 18 09/05/2012 7:56 AM EDT Oxygen Saturation - - Inhaled Oxygen Concentration - - Weight - - Height - - Body Mass Index - - documented in this encounter Discharge Instructions * Discharge Instructions* Maite Luke N - 09/05/2012 10:22 AM EDT [facility] [place] [address] to contact family doctor Following your visit to [facility] Triage ??N?DL?TL?? Reason for Visit: Provider: GESTATION - Less Than 37 Weeks Call your provider if: You are feeling any cramping sensations in your abdomen less than 20 minutes apart Edil-Vazquez Contractions usually are irregular may get less painful or go away with walking, resting, or any other activities usually felt in the front and do not radiate to the back labor contractions may start irregular in frequency, then become regular and more frequent usually start in the front and radiate to the back resting, walking, and other activities will not take them away or may even make them worse You are leaking fluid may be a small leak of fluid may be a large gush note the time it started leaking, amount, and color of fluid (clear, yellow, green, pink, red) You notice vaginal bleeding spotting is normal following a vaginal exam in your doctor's or fox raiser's office you should not bleed as much as a period You have noticed a marked decrease in your baby's movement refer to your kick count instructions in the Your Journey book baby should move at least 10 times in 2 hours You have had any direct trauma to your abdomen such as a car accident, fall, or impact or if you have any of these symptoms: Headache Visual disturbance/spots in front of your eyes/blurry vision Pain under your ribs toward the right side of your abdomen Sudden swelling to your legs or any increase in swelling to your arms and face Pain or bleeding on urination A temperature at or above 100.4F Nausea or vomiting Flu-like symptoms: cough, fever, or muscle aches GENERAL INSTRUCTIONS Drink plenty of non-caffeinated fluids throughout the day to prevent dehydration Keep your regularly scheduled doctor or fox raiser appointment NEW MEDICATIONS: SPECIAL INSTRUCTIONS/FOLLOW-UP CARE: documented in this encounter Medications at Time [...] as of this encounter Progress Notes * Marita Anders MSW - 09/05/2012 10:43 AM EDT Care Management/Social Work Referral/Contact: F/U with patient, who is known to Social Work. S/O: Met with patient, Preethi, and her mother, in room on . Patient was preparing for d/c to home, after being admitted for pre-term labor on 09/03/12. Patient is now 30+2 weeks gestation. Patient was seen by SW on 06/12/12, with stressors at that time of hx of depression, break-up with FOB, loss of job, stress of recent diagnosis following thyroidectomy, and unstable housing. Patient reported today that she lost her apartment due to job loss, and is now living with her mother (an RN at [employer] [place]), in [place], [place]. Patient requested information about childbirth classes. Provided flyer for [facility] and offered referral for scholarship. Suggested they could stop by on the way home for free food, diapers, car seat, but patient and her mother appeared anxious to get home, as mother had to go to work later. Patient appeared very frustrated about being on modified bedrest for the next several weeks, stating she is someone who likes to be on the go. 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 A: Patient is a 22-year-old single woman, here for pre-term labor in setting of 30 week . Patient has a hx of prior loss. Patient is known to from OB Clinic (see Outpatient Care Management note of 06/12/12). Patient is being discharged to home today. Patient currently living with her mother (an RN at [employer] [facility] [place]) in [place], [place]. 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 Patient with considerable stressors and hx of depression. Has declined medication during this . Patient with hx of substance abuse. (TIFFANIE presumptive + for THC on admission.) P: SW referring patient, at her request, to [facility] for scholarship for childbirth class. LEYDI Vicente, PRIMARY MONTESSORI TEACHER * Katelynn Garcia MD - 09/05/2012 9:53 AM EDT 09/05/12 0941 Nonstress Test, Fetus A Baseline Rate 130 bpm Variability 6-25 BPM Accelerations Present Decelerations None Contraction Frequency none Nonstress Test Interpretation Reactive <32 week: two 10 bpm accelerations lasting 10 seconds Overall Impression Reassuring for gestational age NST Times NST Start Time 0903 I personally reviewed and interpreted this NST. KATELYNN GARCIA MD * Faye Sin MD - 09/05/2012 6:48 AM EDT Obstetrical Antepartum Progress Note Preethi Artislliams is a 22 y.o. female with an ZAYDA of 11/12/2012, by Ultrasound who is at 30w2d gestation, admitted with contractions. This is HD#3 Active Problems: Active Hospital Problems Diagnoses ??? Threatened labor, antepartum ??? , supervision of, high-risk Team MFM transfer of care from [facility] Delivery plan GBS date & Result Cystic fibrosis choice Aneuploidy choice QUAD Others screening tests nutrition Childbirth education declined preferences Contraception plan undecided Ped/circ plans Immunizations: Influenza vaccine Accepted Declined Contraindicated x Other vaccines Indicated Not indicated Given during Tdap x Pneumovax MMR Varicella Other Resolved Hospital Problems Diagnoses Date Resolved 24 Hour Events Increased synthroid dose to 250 mcg daily No cervical change yesterday Subjective: Patient reports continues to c/o contractions. No LOF or vaginal bleeding. +FM. Review of Systems Obstetric Review of Systems Total Weight Gain this 11.249 kg (24 lb 12.8 oz) Movement: normal Contractions: cramping and back pain Leaking: None Bleeding; none Preeclampsia signs and symptoms: None Physical Exam Patient Vitals for the past 24 hrs: BP Temp Temp src Pulse Resp 09/04/12 2009 115/52 mmHg 36.7 ??C (98.1 ??F) Oral 80 20 09/04/12 1816 - - - 75 - 09/04/12 1205 96/58 mmHg - - 71 18 09/04/12 0800 104/57 mmHg 36.5 ??C (97.7 ??F) Oral 68 18 Uterus: non-tender Cervix Exam: Dilation: 2 (09/04/12 0947) Effacement: 50 Station: -3 Position: Posterior Consistency: Medium Guzman Score: 3 OB Examiner: Jadon Sin, PGY3 Heart Rate Interpretation: Reactive on admission, pending today Ultrasound (09/04): GA: 30 and 04/22 Presentation: vtx Placenta: Anterior UDAY: 19.6 EFW: 1998 gm (>95%) Cervix: 0.9 cm GBS: pending Assessment & Plan: 22 y.o. female with an 11/12/2012, by Ultrasound who is at 30w2d weeks gestational age, HD#3hospitalized for threatened labor. Labor State: threatened labor. Delivery indications: progressive labor and non-reassuring status surveillance: NST once daily Ultrasound showed macrosomia - will need repeat 1 hour GCT in ~1 week after steroid affect wears off Presentation: vertex GBS/RH/HIV Management: GBS Management: GBS pending Steroid status & Plan: Beta complete 09/04/2012 Diet: gestational diet Short cervical length: 0.9 cm on ultrasound. Will need modified bedrest on discharge. Consent obtained for CS, possible classical Disposition: Likely discharge today - after cervical exam. Consultations: none Additional Issues: 1. Reported 20 week prior loss 2. 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 Managed by endocrine. Synthroid dose recently decreased from 300mcg QD to 200mcg QD as TSH was 0.03. TSH on 09/02 was 34.90. Discussed with patient's sourcing specialist - increased dose to 250 mcg daily. Needs repeat TSH in 1 month. 4. Depression - has seen Dr. Griffith, declined meds during 5. Anti-Estuardo A&B antibodies 6. Obesity (BMI 30-34.9) 7. Marijuana use. Positive urine drug screen on admission yesterday Signed: FAYE SIN MD 09/05/2012 * Maite Aviles RN - 09/04/2012 6:27 PM EDT 1816-EFM and toco off. Pt states she continues to contract Q5 mins. No contractions noted on strip.At 1811, FHR tracing 70-80s. Pt concerned that FHR dropped. Pt reassured by this RN d/t her HR=75. Strip reviewed with pt and pt states relief after talking with this RN about it. Emotional support given. Pt with no complaints at this time. MAITE AVILES RN * Maite Aviles RN - 09/04/2012 5:30 PM EDT 1715-Pt resting in bed with her mother at her bedside. Pt states her contractions have increased toQ5 mins from Q7-15 mins. Pt states they are lasting longer and more intense. EFM and toco placed,FHR reassuring. Marker given so pt can gianluca her contractions. MDs aware, will continue to monitor st rip. MAITE AVILES, RN * Lalita Quan MD - 09/04/2012 7:38 AM EDT Obstetrical Antepartum Progress Note Preethi Hummel is a 22 y.o. female with an ZAYDA of 11/12/2012, by Ultrasound who is at 30w1d gestation, admitted with contractions. This is HD#2 Active Problems: Active Hospital Problems Diagnoses ??? Threatened labor, antepartum ??? , supervision of, high-risk Team MFM transfer of care from [facility] Delivery plan GBS date & Result Cystic fibrosis choice Aneuploidy choice QUAD Others screening tests nutrition Childbirth education declined preferences Contraception plan undecided Ped/circ plans Immunizations: Influenza vaccine Accepted Declined Contraindicated x Other vaccines Indicated Not indicated Given during Tdap x Pneumovax MMR Varicella Other Resolved Hospital Problems Diagnoses Date Resolved 24 Hour Events No cervical change after arrival here Subjective: Patient repots mild uterine cramping and low back pain - it is improved from arrival yesterday. No LOF or vaginal bleeding. +FM. Review of Systems Obstetric Review of Systems Total Weight Gain this 11.249 kg (24 lb 12.8 oz) Movement: normal Contractions: cramping and back pain Leaking: None Bleeding; none Preeclampsia signs and symptoms: None Physical Exam Patient Vitals for the past 24 hrs: BP Temp Temp src Pulse Resp 09/04/12 0445 95/48 mmHg 36.6 ??C (97.9 ??F) Oral 62 18 09/03/12 2130 100/63 mmHg 36.7 ??C (98.1 ??F) Oral 75 18 09/03/12 1741 106/64 mmHg 36.6 ??C (97.9 ??F) Oral 86 18 Uterus: non-tender Cervix Exam: Dilation: 2 (09/03/12 1818) Effacement: 50 Station: High -4 Position: Posterior Consistency: Medium Guzman Score: 3 OB Examiner: Dr. Jane Heart Rate Interpretation: Reactive on admission, pending today Bedside ultrasound (on admission): Transverse, head maternal left Ultrasound (08/04): GA: 25 and 08/20 Presentation: oblique EFW: 1006 gm (92%) Cervix: wnl with fundal pressure GBS: pending Results for PREETHI HUMMEL ( ) as of 09/04/2012 07:42 Ref. Range 09/03/2012 19:08 TIFFANIE Phencyclidine Scr Latest Range: None Detected None Detected TIFFANIE Oxycodone Src Latest Range: None Detected None Detected TIFFANIE Propoxyphene Scr Latest Range: None Detected None Detected TIFFANIE Buprenorphine Scr Latest Range: None Detected None Detected TIFFANIE Amphetamines Scr Latest Range: None Detected None Detected TIFFANIE Metamphetamines Scr Latest Range: None Detected None Detected TIFFANIE Barbiturates Scr Latest Range: None Detected Presumptive Pos (A) TIFFANIE Benzodiazepines Scr Latest Range: None Detected None Detected TIFFANIE Cocaine Metabolites Scr Latest Range: None Detected None Detected TIFFANIE Methadone Scr Latest Range: None Detected None Detected TIFFANIE Opiates Scr Latest Range: None Detected None Detected TIFFANIE Marijuana Metabolites Scr Latest Range: None Detected Presumptive Pos (A) TIFFANIE Tricyclics Scr Latest Range: None Detected None Detected Results for PREETHI HUMMEL ( ) as of 09/04/2012 07:42 Ref. Range 09/03/2012 22:53 Color UA Latest Range: Yellow Yellow Appearance UA Latest Range: Clear Hazy (A) Spec [place] UA Latest Range: 1.002-1.030 1.006 pH UA Latest Range: 5.0-8.0 7.0 Protein UA Latest Range: Neg mg/dL Trace (A) Glucose UA Latest Range: Negative mg/dL Negative Ketones UA No range found Negative Bilirubin UA Latest Range: Negative mg/dL Negative Urobilinogen UA No range found Normal Blood UA No range found Negative Leukocytes UA Latest Range: Neg Small (A) Nitrite UA No range found Negative WBC UA Latest Range: 0-5 /HPF 9 (H) RBC UA Latest Range: 0-4 Not Present Bacteria UA No range found Many Amorph Vanessa UA No range found Occasional Squam Epith UA Latest Range: <=4 /HPF 16 (H) Trans Epith UA Latest Range: <=1 /HPF 1 Recent Labs Basename 09/03/12 1945 WBC 10.0 HGB 11.9 HCT 34.0 PLATELET 146 HIV Rapid Non-Reactive Assessment & Plan: 22 y.o. female with an 11/12/2012, by Ultrasound who is at 30w1d weeks gestational age, HD#2hospitalized for threatened labor. Labor State: threatened labor. Delivery indications: progressive labor and non-reassuring status Heart Rate Assessment: Category 1 surveillance: NST once daily GBS/RH/HIV Management: GBS Management: GBS swab collected during exam. Magnesium status and plan: Mag naive, will start mag for tocolysis vs DRY CLEANING MANAGER PRN progressive labor. Steroid status & Plan: Betamethasone #1 given Diet: clear liquids Ultrasound with cervical length today Consent obtained for CS, possible classical Consultations: none at present Additional Issues: 1. Reported 20 week prior loss 2. 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 Managed by endocrine. Synthroid dose recently decreased from 300mcg QD to 200mcg QD as TSH was 0.03. TSH yesterday 34.90. Will call endocrine this morning for their plan regarding Synthroid dose increase (not in chart). 3. Migraines 4. Depression - has seen Dr. Griffith, declined meds during 5. Anti-Estuardo A&B antibodies 6. Obesity (BMI 30-34.9) 7. Marijuana use. Positive urine drug screen on admission yesterday Signed: FAYE SIN MD 09/04/2012 I have seen and examined the patient, providing herrera components as outlined below. I have reviewed the resident???s above note; my evaluation of the patient is below: 22 yo at 30 1/7 weeks admitted with TPTL. FM felt. No LOF. No bleeding. C/o cramping. C/o severe pressure. BP 96/58 Pulse 71 Temp(Src) 36.5 ??C (97.7 ??F) (Oral) Resp 18 LMP 02/21/2012 Abdomen soft, NT Uterus NT, gravid TOCO none FHR reactive no decels I/R: 30 1/7 weeks TPTL status reassuring No evidence of progressive PTL. Will give Nifedipine for symptomatic relief Transverse presentation CS if progressive labor S/p BMZ x1 , 2nd dose today US today Hypothyroidism states compliance. Will increase synthroid to 250mcg QHS * Eve Friedman, RN - 09/03/2012 5:57 PM EDT 1740: Patient admitted to [facility] complaining of contractions and back pain. Patient states that she had a gush of yellow fluid yesterday but it hasn't done it again since then. Denies vaginal bleeding. +FM. VSS. EFM and toco applied. FHR reactive. 1814: Patient complaining of increased pressure. Dr. Jane to bedside. SVE=2/50/-4. 1844: Dr. Jane to bedside. U/S done to confirm vertex presentation. GBS swab done and sent. UA and TIFFANIE collected and sent to lab. Patient states that that will be positive for marijuana that I didabout a week ago. 190: Patient admitted to BP8 and report given to Eric Chun RN. documented in this encounter H&P Notes * Mely Mccord MD - 09/03/2012 11:39 PM EDT Obstetrical Admission Note Referring Hospital: N/A Referring Provider: N/A Initial Care Provider (if early referral or co-managed by [facility]): [facility] Chief Complaint: Preethi Hummel was admitted today secondary to threatened labor. Preethi Hummel is a 22 y.o. year old female, GBS unknown, with an ZAYDA of 11/12/2012, by Ultrasound who is at 30w0d weeks gestation. States that she has been vomiting all day without nausea, though she has kept down a few bites to eat and has tolerated liquids this afternoon. Around noon, she began to feel increased back pain, intermittent in nature every 15 minutes or so, andmenstrual-like cramps. The cramps resolved but the back pain continued to increase and last longer,and she began to feel pressure. The patient denies fevers/chills, diarrhea/constipation, dysuria, change in vaginal discharge/itching/burning, cough/cold/flulike symptoms, or sick contacts. She denies vaginal bleeding, leakage of fluid, and reports normal FM. Her course has been complicated by the followin. Reported 20 week prior loss 2. 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 Managed by endocrine. Synthroid dose recently decreased from 300mcg QD to 200mcg QD as TSH was 0.03. TSH yesterday 34.90. 3. Migraines 4. Depression - has seen Dr. Griffith, declined meds during 5. Anti-Estuardo A&B antibodies 6. Obesity (BMI 30-34.9) 7. Marijuana use Review of Systems 10 point ROS negative except as per HPI Obstetric Review of Systems Total Weight Gain this 11.249 kg (24 lb 12.8 oz) Movement: normal Contractions: low back cramping Leaking: None Bleeding; none now Preeclampsia signs and symptoms: [...] NECK DISSECTION performed by JUAN ESPARZA at [facility] MAIN OR ??? Somatosensory test, any/all per. nerves, trunk or head 03/22/2011 FACIAL NERVE MONITORING, SETUP performed by JAUN ESPARZA at [facility] MAIN OR ??? [place] tooth extraction ??? Upper gastrointestinal endoscopy for IBS, celiac excluded ??? Colonoscopy found polyps ??? Tonsillectomy 2010 Prior to Admission Medications Prescriptions prior to admission Medication Sig Dispense Refill ??? kjodwoupep-ogqujgboxbdud-aputpgxb (FIORICET, ESGIC) per tablet Take 1 tablet by mouth every 4 hours as needed for Pain. 30 tablet 0 ??? zolpidem (AMBIEN CR) 12.5 mg CR tablet Take 1 tablet by mouth nightly as needed for Sleep. 30 tablet 0 ??? levothyroxine (SYNTHROID) 200 mcg tablet Take 1 tablet by mouth daily. 30 tablet 6 ??? ONDANSETRON HCL (ZOFRAN ORAL) Take by [...] than a month ago. ??? Sexually Active: No Immunization History There is no immunization history on file for this patient. Last Set of Vitals: BP 100/63 Pulse 75 Temp(Src) 36.7 ??C (98.1 ??F) (Oral) Resp 18 LMP 02/21/2012 Physical Exam Gen: AAOx3, appears intermittently uncomfortable Cardio: nl rhythm, S1, S2, no M/C/R/G Pulm: CTA BL, no W/C/R Abd: +BS, soft, NT, ND, gravid Back: no CVA tenderness Ext: warm, well-perfused Uterine Size: S=D Sterile Speculum: not indicated Cervix Exam: Dilation: 2 (09/03/121817) Effacement: 50 Station: High -4 Position: Posterior Consistency: Medium Guzman Score: 3 OB Examiner: Dr. Jane Presentations: Transverse, head maternal left by bedside ultrasound Heart Rate Interpretation: FHR Fetus A: Baseline Rate: 135 bpm (09/03/12 2100) Variability: Moderate Accelerations: Present Mode: External US Decelerations: None Contraction Frequency: irregular Record Review Labs Lab Results Component Value Date ABORH A Pos 09/03/2012 HCT 34.0 09/03/2012 HGB 11.9 09/03/2012 MCV 97.7* 09/03/2012 Most Recent Ultrasound Date: 08/04/12 GA at US: 25.5wks EFW: 1006g 92%tile Growth large for gestational age Amniotic fluid volumenormal Placenta anterior Presentation other oblique Assessment & Plan 22 y.o. year old female, GBS unknown, with an ZAYDA of 11/12/2012, by Ultrasound who is at 30w0d weeks gestation being admitted for threatened labor. Will send CBC, UA and culture pending urine dip, HIV, Hep B, ISACC. ?? Labor State: threatened labor. Recheck cervix in 2 hours or sooner PRN. ?? Delivery indications: progressive labor and non-reassuring status ?? Heart Rate Assessment: Category 1 ?? surveillance: NST once daily ?? GBS/RH/HIV Management: ?? GBS Management: GBS swab collected during exam. Treat with Penicillin PRN progressive labor. ?? Magnesium status and plan: Mag naive, will start mag for tocolysis vs DRY CLEANING MANAGER PRN progressive labor. ?? Steroid status & Plan: Betamethasone ordered ?? Diet: will keep NPO for the time being in the event of progressive labor and need for CS for malpresentation ?? Ultrasound with cervical length ordered for tomorrow morning if pt stable overnight ?? Consent obtained for CS, possible classical, PRN ?? Consultations: none at present Additional Issues: 1. Reported 20 week prior loss 2. 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 Managed by endocrine. Synthroid dose recently decreased from 300mcg QD to 200mcg QD as TSH was 0.03. TSH yesterday 34.90. Will call endocrine in the a.m. for their plan re: Synthroid dose increase (not in chart). 3. Migraines 4. Depression - has seen Dr. Griffith, declined meds during 5. Anti-Estuardo A&B antibodies 6. Obesity (BMI 30-34.9) 7. Marijuana use Seen and examined with Dr. Mccord. CHUCK JANE MD 09/03/2012 I saw and evaluated Preethi Hummel. I have reviewed the resident's history and confirmed it with the pateint and I agree with the details as written. My physical examination confirms the resident's findings. The assessment and plan were formulated in discussion with me and I agree with them as documented. MELY MCCORD MD documented in this encounter Miscellaneous Notes * Discharge Summary - Faye Sin MD - 09/08/2012 11:59 AM EDT Patient Name: Preethi Hummel Patient Age: 22 y.o. Date of : 1990 Admit date: 09/03/2012 Disharge date and time: 09/05/2012 Attending Physician: Lalita Quan Discharge Summary Antepartum Care Provider: [facility] Referring Provider if applicable: n/a Discharge Diagnoses (Hospital Problems) and Secondary Diagnoses (Chronic Problems): Active Hospital Problems Diagnoses ??? Threatened labor, antepartum ??? , supervision of, high-risk Team [facility] transfer of care from [facility] Delivery plan GBS date & Result Cystic [...] care. ??? , supervision of, high-risk Team [facility] transfer of care from [facility] Delivery plan GBS date & Result Cystic [...] History (per admit note cut and paste) Preethi Hummel was admitted today secondary to threatened labor. Preethi Hummel is a 22 y.o. year old female, GBS unknown, with an ZAYDA of 11/12/2012, by Ultrasound who is at 30w0d weeks gestation. States that she has been vomiting all day without nausea, though she has kept down a few bites to eat and has tolerated liquids this afternoon. Around noon, she began to feel increased back pain, intermittent in nature every 15 minutes or so, andmenstrual-like cramps. The cramps resolved but the back pain continued to increase and last longer,and she began to feel pressure. The patient denies fevers/chills, diarrhea/constipation, dysuria, change in vaginal discharge/itching/burning, cough/cold/flulike symptoms, or sick contacts. She denies vaginal bleeding, leakage of fluid, and reports normal FM. Her course has been complicated by the followin. Reported 20 week prior loss 2. 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 Managed by endocrine. Synthroid dose recently decreased from 300mcg QD to 200mcg QD as TSH was 0.03. TSH yesterday 34.90. 3. Migraines 4. Depression - has seen Dr. Nacho, declined meds during 5. Anti-Estuardo A&B antibodies 6. Obesity (BMI 30-34.9) 7. Marijuana use Hospital Course: Patient was admitted for close monitoring. Her cervix was checked multiple times and stable at 2 cm/50%. She received betamethasone for lung maturity. She had a formal ultrasound which showed a shortened cervical length and macrosomia. Endocrinology was consulted regarding patient's elevated TSH and her synthroid was increased to 250 mcg daily. Tocolytics Received if applicable: nifedipine Date Steroid Complete: 09/04/2012 GBS status: negative (09/03/2012) Cervix at discharge: Dilation: Dilation: 2 Effacement: Effacement: 50 Station: Station: -3 Pertinent Studies and Lab Data: Ultrasound 09/04/2012: GA: 30 and 04/22 Presentation: vtx Placenta: Anterior UDAY: 19.6 EFW: 1998 gm (>95%) Cervix: 0.9 cm Ref. Range 09/03/2012 19:45 09/03/2012 20:45 HIV ANTIBODY RAPID TEST No range found Negative HepB Surface Ag Latest Range: Negative Negative Pending Studies and Lab Data: None Allergies Allergen Reactions ??? Demerol (Meperidine) Anaphylaxis ??? Dilaudid (Hydromorphone (Bulk)) Hives Discharge Medication List as of 09/05/2012 10:49 AM Continued medications with revised dosing Details levothyroxine (SYNTHROID) 125 mcg tablet Take 2 tablets by mouth nightly., Oral, NIGHTLY Starting 09/05/2012, Until Discontinued, Disp-30 tablet, R-2, Normal Continued medications, unchanged Details yyqazigezn-jehyyumqofmlu-hnjsctvi (FIORICET, ESGIC) per tablet Take 1 tablet [...] mouth. , Oral, Until Discontinued, Historical Med Summary: OB History Grav Para Term Abortions TAB SAB Ect Mult Living 3 2 2 Active Medical Problems: No resolved problems to display. Active Hospital Problems Diagnoses ??? Threatened labor, antepartum ??? , supervision of, high-risk Resolved Hospital Problems Diagnoses Date Resolved Past Medical History Diagnosis Date ??? Migraine [...] MALIGNANCY, LIMITED NECK DISSECTION performed by JUAN ESAPRZA at [facility] MAIN OR ??? Somatosensory test, any/all per. nerves, trunk or head 03/22/2011 FACIAL NERVE MONITORING, SETUP performed by JUAN ESPARZA at [facility] MAIN OR ??? [place] tooth extraction ??? Upper gastrointestinal endoscopy for IBS, celiac excluded ??? Colonoscopy found polyps ??? Tonsillectomy 2010 Family History Problem Relation Age of Onset ??? Thyroid Disease Sister ??? * Brother dyspraxia ??? NOS GENETIC SYNDROMES Sister possible LCHAD deficiency History Social History ??? Marital Status: Single [...] than a month ago. ??? Sexually Active: No Other Topics Concern ??? Not on file Social History Narrative ??? No narrative on file F/U (including additional evaluations): Needs Repeat 1 hour GCT - due to macrosomia General Instructions [facility] Birthruthann Cisse to contact OB doctor [facility] Mima to contact fox raiser CRYSTAL Montes to contact family doctor [facility] Triage ??N?DL?TL?? Reason for Visit: Provider: GESTATION - Less Than 37 Weeks Call your provider if: You are feeling any cramping sensations in your abdomen less than 20 minutes apart 1. [place] Contractions usually are irregular may get less painful or go away with walking, resting, or any other activities usually felt in the front and do not radiate to the back 2. labor contractions may start irregular in frequency, then become regular and more frequent usually start in the front and radiate to the back resting, walking, and other activities will not take them away or may even make them worse You are leaking fluid may be a small leak of fluid may be a large gush note the time it started leaking, amount, and color of fluid (clear, yellow, green, pink, red) You notice vaginal bleeding spotting is normal following a vaginal exam in your doctor's or fox raiser's office you should not bleed as much as a period You have noticed a marked decrease in your baby's movement refer to your kick count instructions in the Your Journey book baby should move at least 10 times in 2 hours You have had any direct trauma to your abdomen such as a car accident, fall, or impact or if you have any of these symptoms: 3. Headache 4. Visual disturbance/spots in front of your eyes/blurry vision 5. Pain under your ribs toward the right side of your abdomen 6. Sudden swelling to your legs or any increase in swelling to your arms and face 7. Pain or bleeding on urination 8. A temperature at or above 100.4F 9. Nausea or vomiting 10. Flu-like symptoms: cough, fever, or muscle aches GENERAL INSTRUCTIONS 11. Drink plenty of non-caffeinated fluids throughout the day to prevent dehydration 12. Keep your regularly scheduled doctor or fox raiser appointment NEW MEDICATIONS: SPECIAL INSTRUCTIONS/FOLLOW-UP CARE: Future Appointments and Orders Future Appointments: Provider: Department: Dept Phone: Center: 09/12/2012 11:00 AM Lalita Quan MD Obstetrics and Gynecology [phone] [facility] 11/28/2012 1:40 PM Yaneth Griffith MD Psychiatry and Behavioral Health [phone] [facility] Joint Appt Questionnaire Five D Res-Psych LEB 5D [phone] [facility] Future Orders Please Complete By Expires Schedule appointment [CEQ651 Custom] Process Instructions: Scheduling Instructions: Comments: Questions: Responses: Referrals:none FAYE SIN MD 09/08/2012 * Miscellaneous - Provider, Scanning - 09/06/2012 10:33 AM EDT * Plan of Care - Maite Luke - 09/05/2012 10:58 AM EDT Problem: Labor (Obstetric) Intervention: Provide Emotional Support (Obstetric) Pt has an outpatient appointment with psych for follow-up. Goal: Prevent/Manage Potential Problems Based on my scope of practice, I assessed for signs and symptoms of potential problems that could be present as documented. Outcome: Absent and monitoring Pt is doing well and no longer in PTL, cervix is unchanged. She denies UC, vaginal bleeding, leaking of fluids, MINAYA, vision change, or edema. Pt has been cleared for discharge and will be returning home with her Mother. Discharge education provided pt verbalized understanding. * Plan of Care - Carmen Cisneros RN - 09/04/2012 8:41 PM EDT Problem: Labor (Obstetric) Intervention: Provide Emotional Support (Obstetric) Discussed plan of care, denies LOF and bleeding, jemima occasionally, rating pain 8/10, +FM, mother at bedside and supportive, requesting ambien for sleep, emotional support provided. * Plan of Care - Carmen Cisneros RN - 09/04/2012 8:38 PM EDT Problem: Pain, Acute (Adult, Obstetric) Intervention: Acute Pain: Signs and Symptoms Pt aware of pain modalities available, denies the need for hot pack at this time, plan discussed with Dr. Jane, verbalizes understanding. * Plan of Care - Maite Aviles RN - 09/04/2012 6:33 PM EDT Problem: Labor (Obstetric) Goal: Prevent/Manage Potential Problems Based on my scope of practice, I assessed for signs and symptoms of potential problems that could be present as documented. Outcome: Absent and monitoring Pt admitted for PTL. Pt states she is jemima and they are more frequent and stronger with intensity. No contractions noted on monitor. Pt states she is freaked out about being here 10 weeks early. Emotional support given. Will continue to assess per protocol. MAITE AVILES RN * Miscellaneous - Provider, Scanning - 09/04/2012 4:27 PM EDT documented in this encounter Plan of Treatment Upcoming Encounters Date Type Department Care Team (Late st Contact Info) Description 05/23/2024 [place] [id number] Maite Malloy MD [facility] [place] [address] documented as of this encounter Procedures Procedure Name Priority Date/Time Associated Diagnosis Comments US OB FOLLOW UP Routine 09/04/2012 3:00 PM EDT URINALYSIS WITH REFLEX CULTURE Routine 09/03/2012 10:53 PM EDT URINE CULTURE Routine 09/03/2012 10:46 PM EDT HEPATITIS B SURFACE ANTIGEN Routine 09/03/2012 8:45 PM EDT HIV AB/AG RAPID TEST ([place]) Routine 09/03/2012 7:45 PM EDT SCAN, PERIPHERAL BLOOD Routine 3 7:45 PM EDT DIFFERENTIAL, AUTOMATED Routine 09/03/2012 7:45 PM EDT ABO/RH TYPING Routine 09/03/2012 7:45 PM EDT CBC (WITH DIFF) Routine 09/03/2012 7:45 PM EDT ANTIBODY SCREEN Routine 09/03/2012 7:45 PM EDT TYPE AND SCREEN ([facility] [place]CARIE) Routine 09/03/2012 7:45 PM EDT GROUP B STREPTOCOCCUS SCREEN Routine 09/03/2012 7:08 PM EDT GROUP B STREP CULTURE SCREEN Routine 09/03/2012 7:08 PM EDT RAPID DRUG SCREEN W/O CONFIRMATION, URINE Routine 09/03/2012 7:08 PM EDT URINALYSIS WITH REFLEX CULTURE Routine 09/03/2012 7:08 PM EDT documented in this encounter Results * US OB follow up evaluation (09/04/2012 3:00 PM EDT) Anatomical Region Laterality Modality Pelvis, Abdomen Ultrasound 09/04/2012 3:00 PM EDT Narrative 09/04/2012 3:09 PM EDT ?OBSTETRICS REPORT ? (Signed Final 09/04/2012 03:08 pm) Patient Info ID: ? [id number] ? : ??[birth year] (22 yrs) Name: ? PREETHI Godoy ?Visit Date: 09/04/2012 02:50 pm ? LOUISE- ? FRANK Performed By Performed By: ?Ana Laura Urban Attending: ? Mathew LIMA, Lalita Diop Referred By: ? CHUCK JANE MD Service(s) Provided UOBFOL - Efw - Growth - Reevaluation - [place] ?[id number] - [id number] Indications 22yo at 30.0 wks admitted for threatened PTL, pls eval cervical length as well Evaluation Num Of Fetuses: ?1 Heart Rate: ??139 ?bpm Cardiac Activity: ??Observed, normal rhythm Presentation: ?Cephalic Placenta: ?Anterior P. Cord ?Not visualized Insertion: Amniotic Fluid UDAY FV: ?Normal UDAY Sum: ? 19.6 ?cm ?Larg Pckt: ?8 ??cm RUQ: ?? 8 ? cm ?LUQ: ?? 6.3 ? cm RLQ: ?? 4 ? cm ?LLQ: ?? 1.3 ? cm -------- Biometry -------- BPD: ?91 ??mm ?G. Age: ?? 36w 6d ? > 97 ??% HC: ?317 ??mm ?G. Age: ?? 35w 4d ? > 97 ??% AC: ?290 ??mm ?G. Age: ?? 33w 0d ? > 97 ??% FL: ? 56 ??mm ?G. Age: ?? 29w 4d ? 19 ??% HUM: ?54 ??mm ?G. Age: ?? 31w 3d ? 75 ??% CI: ? 82.05 ??% ? 70 - 86 FL/HC: ? 17.7 ??% ? 19.2 - 21.4 HC/AC: ? 1.09 ?0.99 - 1.21 FL/BPD: ?61.5 ??% ? 71 - 87 FL/AC: ? 19.3 ??% ? 20 - 24 Est. FW: ?1998 ?? gm ? 4 lb 6 oz ?? > 95 ??% Gestational Age LMP: ? 28w 0d ?Date: ??02/21/12 ? ZAYDA: ?11/27/12 U/S Today: ? 33w 5d ?ZADYA: ?10/18/12 Best: ?30w 1d ?? Det. By: ??Early ?ZAYDA: ?11/12/12 ? Ultrasound ? (04/02/12) ------- Anatomy ------- Cranium: ?Visualized Cavum: ?Limited Views Ventricles: ? Limited Views Choroid Plexus: ? Limited Views Cerebellum: ? Not Visualized Posterior Fossa: ?Not Visualized Nuchal Fold: ?Not evaluated at this gestational age Face: ? Limited Views Heart: ?4-chamber view appears normal RVOT: ? Not evaluated LVOT: ? Not evaluated Diaphragm: ?Visualized Stomach: ?Visualized Abdomen: ?Within Normal Limits Abdominal Wall: ? Within Normal Limits Cord Vessels: ? Not evaluated Kidneys: ?Visualized Bladder: ?Visualized Spine: ?Limited views Lower ? Limited views Extremities: Upper ? Limited views Extremities: Cervix Uterus Adnexa Cervical Length: ? 1.7 ?cm Left Ovary: ?Not visualized Right Ovary: ?? Not visualized Impression 3rd Trimester Summary Single intrauterine with a gestational age of 30w 1d based on early ultrasound. Composite age based on the current ultrasound alone is 33w 5d. Estimated weight corresponds to the > 95th percentile for 30w 1d. Current growth parameters are consistent indicating normal growth. Amniotic fluid volume is Normal, UDAY = 19.6 cm A transvaginal exam was performed to evaluate the head and cervix. The cervix is 1.7cm long. I ??viewed the images and agree with the above interpretation. Thank you for allowing us to participate in the care of PREETHI Godoy MAXINE. Please do not hesitate to call if you have any questions. ? Lalita Quan MD Electronically Signed Final Report ?? 09/04/2012 03:08 pm Procedure Note Lalita Quan MD - 09/04/2012 OBSTETRICS REPORT (Signed Final 09/04/2012 03:08 pm) Patient Info ID: [id number] : [birth year] (22 yrs) Name: PREETHI Godoy Visit Date: 09/04/2012 02:50 pm MARIO MARIE Performed By Performed By: Ana Laura Urban Attending: Lalita Quan MD Referred By: CHUCK JANE MD Service(s) Provided UOBFOL - Efw - Growth - Reevaluation - [place] [id number] - [id number] Indications 22yo at 30.0 wks admitted for threatened PTL, pls eval cervical length as well Evaluation Num Of Fetuses: 1 Heart Rate: 139 bpm Cardiac Activity: Observed, normal rhythm Presentation: Cephalic Placenta: Anterior P. Cord Not visualized Insertion: Amniotic Fluid UDAY FV: Normal UDAY Sum: 19.6 cm Larg Pckt: 8 cm RUQ: 8 cm LUQ: 6.3 cm RLQ: 4 cm LLQ: 1.3 cm -------- Biometry -------- BPD: 91 mm G. Age: 36w 6d > 97 % HC: 317 mm G. Age: 35w 4d > 97 % AC: 290 mm G. Age: 33w 0d > 97 % FL: 56 mm G. Age: 29w 4d 19 % HUM: 54 mm G. Age: 31w 3d 75 % CI: 82.05 % 70 - 86 FL/HC: 17.7 % 19.2 - 21.4 HC/AC: 1.09 0.99 - 1.21 FL/BPD: 61.5 % 71 - 87 FL/AC: 19.3 % 20 - 24 Est. FW: 1997 gm 4 lb 6 oz > 95 % Gestational Age LMP: 28w 0d Date: 02/21/12 ZAYDA: 11/27/12 U/S Today: 33w 5d ZAYDA: 10/18/12 Best: 30w 1d Det. By: Early ZAYDA: 11/12/12 Ultrasound (04/02/12) ------- Anatomy ------- Cranium: Visualized Cavum: Limited Views Ventricles: Limited Views Choroid Plexus: Limited Views Cerebellum: Not Visualized Posterior Fossa: Not Visualized Nuchal Fold: Not evaluated at this gestational age Face: Limited Views Heart: 4-chamber view appears normal RVOT: Not evaluated LVOT: Not evaluated Diaphragm: Visualized Stomach: Visualized Abdomen: Within Normal Limits Abdominal Wall: Within Normal Limits Cord Vessels: Not evaluated Kidneys: Visualized Bladder: Visualized Spine: Limited views Lower Limited views Extremities: Upper Limited views Extremities: Cervix Uterus Adnexa Cervical Length: 1.7 cm Left Ovary: Not visualized Right Ovary: Not visualized Impression 3rd Trimester Summary Single intrauterine with a gestational age of 30w 1d based on early ultrasound. Composite age based on the current ultrasound alone is 33w 5d. Estimated weight corresponds to the > 95th percentile for 30w 1d. Current growth parameters are consistent indicating normal growth. Amniotic fluid volume is Normal, UDAY = 19.6 cm A transvaginal exam was performed to evaluate the head and cervix. The cervix is 1.7cm long. I viewed the images and agree with the above interpretation. Thank you for allowing us to participate in the care of PREETHI GILFRANK. Please do not hesitate to call if you have any questions. Lalita Quan MD Electronically Signed Final Report 09/04/2012 03:08 pm Lalita Quan MD IMG US OB ORDERABL ES * (ABNORMAL) Urinalysis with microscopic (09/03/2012 10:53 PM EDT) Glucose UA Negative Negative mg/dL CERNER MILLENNIUM Protein UA Trace(A) Neg mg/dL CERNER MILLENNIUM Bilirubin UA Negative Negative mg/dL CERNER MILLENNIUM Urobilinogen UA Normal mg/dL CERN ER MILLENNIUM pH UA 7.0 5.0 - 8.0 CERNER MILLENNIUM Blood UA Negative mg/dL CERNER MILLENNIUM Ketones UA Negative mg/dL CERNER MILLENNIUM Nitrite UA Negative CERNER MILLENNIUM Leukocytes UA Small(A) Neg CERNER MILLENNIUM Appearance UA Hazy(A) Clear CERNER MILLENNIUM Spec [place] UA 1.006 1.002 - 1.030 CERNER MILLENNIUM Color UA Yellow Yellow CERNER MILLENNIUM RBC UA Not Present 0 - 4 CERNER MILLENNIUM WBC UA 9(H) 0 - 5 /HPF CERNER MILLENNIUM Bacteria UA Many /HPF CERNER MILLENNIUM Squam Epith UA 16(H) <=4 /HPF CERNE R MILLENNIUM Trans Epith UA 1 <=1 /HPF CERNE R MILLENNIUM Amorph Vanessa UA Occasional /HPF CERN ER MILLENNIUM Urine specimen (specimen) 09/03/2012 10:53 PM EDT 09/03/2012 11:04 PM EDT Narrative Resulting Agency Comment Spec In Lab Mely Mccord MD URINE ORDERABLES CERNER MILLENNIUM * Urine culture Clean Catch Urine (09/03/2012 10:46 PM EDT) Urine Culture ? Patient Name: MELONY AMIN, ?? Ordered By: LALITA QUAN ? SORCHA E ? MR#: [id number] ?LOC: ??BP ? /Sex: ??1990 (22 years), ? Female ? PROCEDURE: Urine Culture ?SOURCE: U CC ? COLLECTED: 09/03/2012 22:46 ? STARTED: 09/04/2012 07:08 ? FINAL REPORT ? Final Report ? Verified:2012 07:52 ? 1,000-9,000 cfu/ml Gram Positive organisms , probable contaminant ? CERNER MILLENNIUM Urine specimen obtained by clean catch procedure (specimen) 09/03/2012 10:46 PM EDT 09/04/2012 7:08 AM EDT Narrative Resulting Agency Comment Spec In Lab Lalita Quan MD MICROBIOLOGY - GEN ERAL ORDERABLES [facility]ANNAH POTTERIUM * Hepatitis B Surface Antigen (09/03/2012 8:45 PM EDT) HepB Surface Ag Negative Negative CERSWETA HARKINSENNIUM Blood specimen (specimen) 09/03/2012 8:45 PM EDT 09/03/2012 8:55 PM EDT Narrative Resulting Agency Comment Spec In Lab Mely Mccord MD CHEMISTRY ORDERABLES Performing Organization Address City/[facility]/ZIP Co de Phone Number HANNAH POTTERIUM * (ABNORMAL) Differential, Automated (09/03/2012 7:45 PM EDT) Neutrophils % 72.9(H) 34.0 - 71.0 % CERNER MILLENNIUM Neutr Abs (ANC) 7.25(H) 1.50 - 6.30 x10(3)/mc L CERNER MILLENNIUM Lymphocytes % 19.3 19.0 - 53.0 % CERNER MILLENNIUM Lymphocytes Abs 1.9 1.0 - 3.6 x10(3)/mc L CERNER MILLENNIUM Monocytes % 7.2 4.0 - 13.0 % CERNER MILLENNIUM Monocyte Abs 0.7 0.2 - 1.0 x10(3)/mc L CERNER MILLENNIUM Eosinophils % 0.5 0.0 - 7.0 % CERNER MILLENNIUM Eosinophils Abs 0.0 0.0 - 0.5 x10(3)/mc L CERNER MILLENNIUM Basophils % 0.1 0.0 - 2.0 % CERNER MILLENNIUM Basophils Abs 0.0 0.0 - 0.2 x10(3)/mc L CERNER MILLENNIUM Immature Gran % 0.00 0.00 - 0.66 % CERNER MILLENNIUM Comment: Immature granulocytes(IG's)percentage and absolute count will include metamyelocytes, myelocytes, and promyelocytes. Blood smears from CBCs yielding IG's will be scanned manually for concordance. If this scan disagrees with the automated IG or if promyelocytes are noted, a manual differential will be performed. Kimmy Gran Abs 0.00 0.00 - 0.05 x10(3)/mc L CERSWETA HARKINSENNIUM Blood specimen (specimen) 09/03/2012 7:45 PM EDT 09/03/2012 8:05 PM EDT Lalita Quan MD HEMATOLOGY ORDERAB LES HANNAH SERRANO * Scan, Peripheral Blood (09/03/2012 7:45 PM EDT) Plat Estimate Normal [facility]ANNAH POTTERIUM RBC Morphology Abnormal CERNE R MILLENNIUM Macrocytes 1-5 /HPF HANNAH HARKINSENNIUM Blood specimen (specimen) 09/03/2012 7:45 PM EDT 09/03/2012 8:05 PM EDT Narrative Resulting Agency Comment Spec In Lab Lalita Quan MD HEMATOLOGY ORDERAB LES [facility]ANNAH POTTERIUM * HIV Antibody Rapid Test (09/03/2012 7:45 PM EDT) HIV Ab/Ag Rapid Non-Reactive Non-React pancho [facility]ANNAH POTTERIUM Comment:Testing done by [employer] me Immunoassay. HIV Comment Negative screening test indicates low risk of HIV exposure. Called by: RANDI_, Read back by: Lia Rogers_, Date/Time:_ 21:45. [facility]ANNAH POTTERIUM Blood specimen (specimen) 09/03/2012 7:45 PM EDT 09/03/2012 9:19 PM EDT Narrative Resulting Agency Comment Spec In Lab Lalita Quan MD CHEMISTRY ORDERABL ES Performing Organization Address [facility] Co de Phone Number HANNAH POTTERIUM * Antibody screen (09/03/2012 7:45 PM EDT) Ab Screen Interp Negative [facility] ABBEYIUM Expires at [id number] on: [id number] [facility] Blood specimen (specimen) 09/03/2012 7:45 PM EDT 09/03/2012 8:08 PM EDT Narrative Resulting Agency Comment Spec In Lab Lalita Quan MD BLOOD BANK LAB ORD ERABLES Performing Organization Address [facility] de Phone Number HANNAH SERRANO * ABO/Rh Typing (09/03/2012 7:45 PM EDT) ABORH Type A Pos [facility]ANNAH POTTERIUM Blood specimen (specimen) 09/03/2012 7:45 PM EDT 09/03/2012 8:08 PM EDT Narrative Resulting Agency Comment Spec In Lab Lalita Quan MD BLOOD BANK LAB ORD ERABLES Performing Organization Address [facility] de Phone Number [facility] * (ABNORMAL) CBC (with Diff) (09/03/2012 7:45 PM EDT) WBC 10.0 4.0 - 10.0 x10(3)/mcL [facility] MILL[facility]NI[facility] RBC 3.48(L) 3.93 - 5.22 x10(6)/mcL [facility] MILL[facility]NIUM Hemoglobin 11.9 11.2 - 15.7 gm/dL [facility] MILL[facility]NIUM Hematocrit 34.0 34.0 - 45.0 % [facility] MILLENNIUM MCV 97.7(H) 79.0 - 94.0 fL [facility] MILLENNIUM MCH 34.2(H) 26.6 - 32.2 pg [facility] MCHC 35.0 32.0 - 36.5 gm/dL [facility] Platelets 146 145 - 370 x10(3)/mcL [facility] RDWSD 47.6(H) 35.0 - 46.0 fL [facility] RDWCV 13.4 10.9 - 14.4 % [facility] MPV 13.5(H) 9.0 - 12.0 fL [facility] Blood specimen (specimen) 09/03/2012 7:45 PM EDT 09/03/2012 8:05 PM EDT Narrative Resulting Agency Comment Spec In Lab Lalita Quan MD HEMATOLOGY ORDERAB LES Performing Organization Address City/[facility]/ZIP Co de Phone Number [facility] * Group B Streptococcus Screen (09/03/2012 7:08 PM EDT) Pathologist [facility] Group B Strep Screen Neg [facility] Pooled specimen from vaginal introitus and rectal swab (specimen) 09/03/2012 7:08 PM EDT 09/03/2012 7:31 PM EDT Comment:PENICILLIN ALLERGY?- >NO Narrative Resulting Agency Comment Spec In Lab Lalita Quan MD MICROBIOLOGY - GEN ERAL ORDERABLES Performing Organization Address [facility] Co de Phone Number [facility] * (ABNORMAL) Urinalysis with microscopic (09/03/2012 7:08 PM EDT) Pathologist [facility] Glucose UA Negative Negative mg/dL [facility] Protein UA 30(A) Neg mg/dL [facility] Bilirubin UA Negative Negative mg/dL [facility] Urobilinogen UA 4.0(A) Normal mg/dL [facility] pH UA 6.5 5.0 - 8.0 [facility] Blood UA Negative mg/dL [facility] Ketones UA Negative mg/dL [facility] Nitrite UA Negative [facility] Leukocytes UA Moderate mcL [facility] Appearance UA Hazy(A) Clear [facility] Spec [place] UA 1.019 1.002 - 1.030 [facility] Color UA Yellow Yellow CERNER MILLENNIUM RBC UA Not Present 0 - 4 CERNER MILLENNIUM WBC UA 10(H) 0 - 5 /HPF CERNER MILLENNIUM Bacteria UA Moderate /HPF [facility]ERNER MILLENNIUM Squam Epith UA 13(H) <=4 /HPF CERNE R MILLENNIUM Renal Epith UA 2(H) <=0 /HPF CERNE R MILLENNIUM Urine specimen (specimen) 09/03/2012 7:08 PM EDT 09/03/2012 7:58 PM EDT Narrative Resulting Agency Comment Spec In Lab Lalita Quan MD URINE ORDERABLES CERNER MILLENNIUM * (ABNORMAL) Rapid Qual Drug Screen, Urine ([facility]) (09/03/2012 7:08 PM EDT) TIFFANIE Marijuana Metabolites Scr Presumptive Pos(A) None Detected CERNER MILLENNIUM Comment: Please note that as of 04/12/2012 the testing device changed to the PROFILE-V MEDTOXScan Drugs of Abuse Test System. The marijuana metabolites screen detects the THC Metabolite (18-gmu-6-carboxy- 9-THC) ??at concentrations >50 ng/mL. Be aware that this is only a QUALITATIVE SCREEN and must be used in conjunction with your clinical assessment of the patient. ??Results are NOT routinely confirmed by highly-defined methods, and are therefore reported as presumptive positive screens as such qualitative SCREEN RESULTS CANNOT BE USED FOR MEDICO-LEGAL purposes. ??As with any qualitative drug screening device, there can be occasional false positive readings from similar or dissimilar cross-reacting drugs. TIFFANIE Phencyclidine Scr None Detected None Detected CERNER MILLENNIUM Comment: Please note that as of 04/12/2012 the testing device changed to the PROFILE-V MEDTOXScan Drugs of Abuse Test System. The phencyclidine screen detects phencyclidine at concentrations >25 ng/mL. Be aware that this is only a QUALITATIVE SCREEN and must be used in conjunction with your clinical assessment of the patient. ??Results are NOT routinely confirmed by highly-defined methods, and are therefore reported as presumptive positive screens as such qualitative SCREEN RESULTS CANNOT BE USED FOR MEDICO-LEGAL purposes. ??As with any qualitative drug screening device, there can be occasional false positive readings from similar or dissimilar cross-reacting drugs. TIFFANIE Cocaine Metabolites Scr None Detected None Detected CERNER MILLENNIUM Comment: Please note that as of 04/12/2012 the testing device changed to the PROFILE-V [employer]TO[employer]Scan Drugs of Abuse Test System. The cocaine metabolites screen detects benzoylecgonine (Cocaine Metabolite) at concentrations >150 ng/mL. Be aware that this is only a QUALITATIVE SCREEN and must be used in conjunction with your clinical assessment of the patient. ??Results are NOT routinely confirmed by highly-defined methods, and are therefore reported as presumptive positive screens as such qualitative SCREEN RESULTS CANNOT BE USED FOR MEDICO-LEGAL purposes. ??As with any qualitative drug screening device, there can be occasional false positive readings from similar or dissimilar cross-reacting drugs. TIFFANIE Methamphetamines Scr None Detected None Detected CERNER MILLENNIUM Comment: Please note that as of 04/12/2012 the testing device changed to the PROFILE-V MEDTOXScan Drugs of Abuse Test System. The methamphetamine screen detects d-methamphetamine at concentrations >500 ng/mL. Be aware that this is only a QUALITATIVE SCREEN and must be used in conjunction with your clinical assessment of the patient. ??Results are NOT routinely confirmed by highly-defined methods, and are therefore reported as presumptive positive screens as such qualitative SCREEN RESULTS CANNOT BE USED FOR MEDICO-LEGAL purposes. ??As with any qualitative drug screening device, there can be occasional false positive readings from similar or dissimilar cross-reacting drugs. TIFFANIE Opiates Scr None Detected None Detected CERNER MILLENNIUM Comment: Please note that as of 04/12/2012 the testing device changed to the PROFILE-V MEDTOXScan Drugs of Abuse Test System. The opiates screen detects opiates at a concentration >100 ng/mL. Be aware that this is only a QUALITATIVE SCREEN and must be used in conjunction with your clinical assessment of the patient. ??Results are NOT routinely confirmed by highly-defined methods, and are therefore reported as presumptive positive screens as such qualitative SCREEN RESULTS CANNOT BE USED FOR MEDICO-LEGAL purposes. ??As with any qualitative drug screening device, there can be occasional false positive readings from similar or dissimilar cross-reacting drugs. TIFFANIE Amphetamines Scr None Detected None Detected CERNER MILLENNIUM Comment: Please note that as of 04/12/2012 the testing device changed to the PROFILE-V [employer]TOXScan Drugs of Abuse Test System. The amphetamine screen detects d-amphetamine at concentrations >500 ng/mL. Be aware that this is only a QUALITATIVE SCREEN and must be used in conjunction with your clinical assessment of the patient. ??Results are NOT routinely confirmed by highly-defined methods, and are therefore reported as presumptive positive screens as such qualitative SCREEN RESULTS CANNOT BE USED FOR MEDICO-LEGAL purposes. ??As with any qualitative drug screening device, there can be occasional false positive readings from similar or dissimilar cross-reacting drugs. TIFFANIE Benzodiazepines Scr None Detected None Detected CERNER MILLENNIUM Comment: Please note that as of 04/12/2012 the testing device changed to the PROFILE-V [employer]TOXScan Drugs of Abuse Test System. The benzodiazepines screen detects benzodiazepines at concentrations >150 ng/mL. Not all benzodiazepines cross-react equally with antibody used in this screen. Due to the low dosage of clonazepam, false negatives may be obtained due to low concentration of clonazepam metabolites. Be aware that this is only a QUALITATIVE SCREEN and must be used in conjunction with your clinical assessment of the patient. ??Results are NOT routinely confirmed by highly-defined methods, and are therefore reported as presumptive positive screens as such qualitative SCREEN RESULTS CANNOT BE USED FOR MEDICO-LEGAL purposes. ??As with any qualitative drug screening device, there can be occasional false positive readings from similar or dissimilar cross-reacting drugs. TIFFANIE Tricyclics Scr None Detected None Detected CERNER MILLENNIUM Comment: Please note that as of 04/12/2012 the testing device changed to the PROFILE-V [employer]TOXScan Drugs of Abuse Test System. The tricyclics screen detects tricyclic antidepressants at concentrations >300 ng/mL. Not all tricyclics cross-react equally with the antibody used in this screen. Be aware that this is only a QUALITATIVE SCREEN and must be used in conjunction with your clinical assessment of the patient. ??Results are NOT routinely confirmed by highly-defined methods, and are therefore reported as presumptive positive screens as such qualitative SCREEN RESULTS CANNOT BE USED FOR MEDICO-LEGAL purposes. ??As with any qualitative drug screening device, there can be occasional false positive readings from similar or dissimilar cross-reacting drugs. TIFFANIE Methadone Scr None Detected None Detected CERNER MILLENNIUM Comment: Please note that as of 04/12/2012 the testing device changed to the PROFILE-V [employer]TOXScan Drugs of Abuse Test System. The methadone screen detects methadone at concentrations >200 ng/mL. Be aware that this is only a QUALITATIVE SCREEN and must be used in conjunction with your clinical assessment of the patient. ??Results are NOT routinely confirmed by highly-defined methods, and are therefore reported as presumptive positive screens as such qualitative SCREEN RESULTS CANNOT BE USED FOR MEDICO-LEGAL purposes. ??As with any qualitative drug screening device, there can be occasional false positive readings from similar or dissimilar cross-reacting drugs. TIFFANIE Barbiturates Scr Presumptive Pos(A) None Detected CERNER MILLENNIUM Comment: Please note that as of 04/12/2012 the testing device changed to the PROFILE-V [employer]TOXScan Drugs of Abuse Test System. The barbiturates screen detects barbiturate at concentrations >200 ng/mL. Note: Not all barbiturates cross-react equally with antibody used in this screen. Be aware that this is only a QUALITATIVE SCREEN and must be used in conjunction with your clinical assessment of the patient. ??Results are NOT routinely confirmed by highly-defined methods, and are therefore reported as presumptive positive screens as such qualitative SCREEN RESULTS CANNOT BE USED FOR MEDICO-LEGAL purposes. ??As with any qualitative drug screening device, there can be occasional false positive readings from similar or dissimilar cross-reacting drugs. TIFFANIE Oxycodone Scr None Detected None Detected CERNER MILLENNIUM Comment: Please note that as of 04/12/2012 the testing device changed to the PROFILE-V MEDTOXScan Drugs of Abuse Test System. The oxycodone screen detects oxycodone at concentrations >100 ng/mL and oxymorphone >250 ng/ml. Be aware that this is only a QUALITATIVE SCREEN and must be used in conjunction with your clinical assessment of the patient. ??Results are NOT routinely confirmed by highly-defined methods, and are therefore reported as presumptive positive screens as such qualitative SCREEN RESULTS CANNOT BE USED FOR MEDICO-LEGAL purposes. ??As with any qualitative drug screening device, there can be occasional false positive readings from similar or dissimilar cross-reacting drugs. TIFFANIE Propoxyphene Scr None Detected None Detected CERNER MILLENNIUM Comment: Please note that as of 04/12/2012 the testing device changed to the PROFILE-V MEDTOXScan Drugs of Abuse Test System. The propoxyphene screen detects propoxyphene at concentrations >300 ng/mL. Be aware that this is only a QUALITATIVE SCREEN and must be used in conjunction with your clinical assessment of the patient. ??Results are NOT routinely confirmed by highly-defined methods, and are therefore reported as presumptive positive screens as such qualitative SCREEN RESULTS CANNOT BE USED FOR MEDICO-LEGAL purposes. ??As with any qualitative drug screening device, there can be occasional false positive readings from similar or dissimilar cross-reacting drugs. TFIFANIE Buprenorphine Scr None Detected None Detected HANNAH SERRANO Comment: Please note that as of 04/12/2012 the testing device changed to the PROFILE-V [employer] Drugs of Abuse Test System. The buprenorphine screen detects buprenorphine at concentrations >10 ng/mL. Be aware that this is only a QUALITATIVE SCREEN and must be used in conjunction with your clinical assessment of the patient. ??Results are NOT routinely confirmed by highly-defined methods, and are therefore reported as presumptive positive screens as such qualitative SCREEN RESULTS CANNOT BE USED FOR MEDICO-LEGAL purposes. ??As with any qualitative drug screening device, there can be occasional false positive readings from similar or dissimilar cross-reacting drugs. Urine specimen (specimen) 09/03/2012 7:08 PM EDT 09/03/2012 7:24 PM EDT Narrative Resulting Agency Comment Spec In Lab Lalita Quan MD URINE ORDERABLES Performing Organization Address City/State/[facility] Co de Phone Number HANNAH SERRANO * Group B Strep Culture Screen (09/03/2012 7:08 PM EDT) Group B Streptococcus Culture ? Patient Name: [facility], ?? Ordered By: LALITA QUAN ? SORURVASHI E ? MR#: [id number] ?LOC: ??BP ? /Sex: ??1990 (22 years), ? Female ? PROCEDURE: Group B Streptococcus Culture ?SOURCE: Vag/Rectal ? COLLECTED: 09/03/2012 19:08 ?FREE TEXT SOURCE: Penicillin Allergy?->No ? STARTED: 09/03/2012 19:31 ? FINAL REPORT ? Final Report ? Verified: 10:07 ? No Group B Streptococci isolated ? PRELIMINARY REPORT ? Preliminary Report ? Verified: 13:42 ? Culture in progress ? [facility] Pooled specimen from vaginal introitus and rectal swab (specimen) 09/03/2012 7:08 PM EDT 09/03/2012 7:31 PM EDT Comment:PENICILLIN ALLERGY?- >NO Narrative Resulting Agency Comment Spec In Lab Lalita Quan MD MICROBIOLOGY - GEN ERAL ORDERABLES Performing Organization Address City/State/[facility] Co de Phone Number [facility] documented in this encounter Visit Diagnoses Diagnosis Threatened labor, antepartum- Primary Threatened premature labor, antepartum Hypothyroidism Unspecified hypothyroidism Threatened labor, antepartum Threatened premature labor, antepartum , supervision of, high-risk Unspecified high-risk documented in this encounter Administered Medications Inactive Administered Medications - up to 3 most recent administrations Medication Order MAR Action Action Date Dose Rate Site acetaminophen (TYLENOL) tablet 650 mg 650 mg, Oral, EVERY 4 HOURS PRN, Starting on Sun09/03/12 at 1906, Until Sun09/05/12 at 1257, Pain, Headaches, mild pain, Not exceed 4 grams per 24 hours, Routine Given 09/03/2012 7:54 PM EDT 650 mg betamethasone acetate-betamethasone sodium phosphate (CELESTONE) injection 12 mg 12 mg, Intramuscular, EVERY 24 HOURS, 2 doses, First dose on Sun09/03/12 at 1930, Last dose on Sun09/04/12 at 1930, Routine Given 09/04/2012 8:00 PM EDT 12 mg Right Gluteal Given 09/03/2012 8:00 PM EDT 12 mg Le ft Gluteal lactated ringers infusion 1,000 mL 1,000 mL, at 100 mL/hr, Intravenous, CONTINUOUS, Starting on Sun09/03/12 at 1930, Until Sun09/05/12 at 1257 New Bag 09/04/2012 5:30 AM EDT 1,000 mLs 100 m L/hr New Bag 09/03/2012 7:30 PM EDT 1,000 mLs 100 mL/hr levothyroxine (SYNTHROID) tablet 200 mcg 200 mcg, Oral, DAILY, First dose on Sun09/03/12 at 1930, Until Discontinued Given 09/03/2012 8:40 PM EDT 200 mcg levothyroxine (SYNTHROID) tablet 250 mcg 250 mcg, Oral, NIGHTLY, First dose (after last modification) on Sun09/04/12 at 2100, Until Discontinued Given 09/04/2012 9:00 PM EDT 250 mcg NIFEdipine (PROCARDIA) capsule 20 mg 20 mg, Oral, ONCE, 1 dose, On Sun09/04/12 at 1145, May repeat in 30 minutes if still jemima, Routine Given 09/04/2012 12:06 PM EDT 20 mg NIFEdipine (PROCARDIA) capsule 20 mg 20 mg, Oral, EVERY 8 HOURS, First dose on Sun09/04/12 at 1945, Until Discontinued, Hold NIFEdipine for blood pressure less than 85/55 mmHg and notify provider, Routine Given 09/05/2012 4:00 AM EDT 20 mg Given 09/04/2012 8:10 PM EDT 20 mg ondansetron (ZOFRAN) injection 4-8 mg 4-8 mg, Intravenous, EVERY 8 HOURS PRN, Starting on Sun09/04/12 at 1221, Until Sun09/05/12 at 1257, Nausea, Vomiting Given 09/04/2012 12:36 PM EDT 8 mg vitamin 27 & [id number] 60 mg iron-1 mg tablet Tab 1 tablet 1 tablet, Oral, DAILY, First dose on Sun09/03/12 at 1930, Until Discontinued, Routine Given 09/05/2012 8:34 AM EDT 1 tablet Given 09/04/2012 9:00 AM EDT 1 tablet sodium chloride 0.9 % flush 5 mL 5 mL, Intravenous, EVERY 12 HOURS, First dose on Sun09/03/12 at 1930, Until Discontinued Given 09/05/2012 7:59 AM EDT 5 mLs Given 09/04/2012 7:30 AM EDT 5 mLs Given 09/03/2012 7:30 PM EDT 5 mLs zolpidem (AMBIEN) tablet 5 mg 5 mg, Oral, NIGHTLY PRN, Starting on Sun09/03/12 at 1906, Until Sun09/05/12 at 1257, Sleep, Routine Given 09/04/2012 9:36 PM EDT 5 mg Given 09/03/2012 11:07 PM EDT 5 mg documented in this encounter Active and Recently Administered Medications Times are shown in EDT. Scheduled Medication Order 09/03/2012 09/04/2012 09/05/2012 betamethasone acetate-betamethasone sodium phosphate (CELESTONE) injection 12 mg (COMPLETED) 12 mg, Intramuscular, EVERY 24 HOURS, 2 doses, First dose on Sun09/03/12 at 1930, Last dose on Sun09/04/12 at 1930, Routine 2000 (Given - Provider: Genet Chun RN) 1930 (Due)1999 (Given - Provider: Carmen Cisneros RN) levothyroxine (SYNTHROID) tablet 200 mcg (CANCELED) 200 mcg, Oral, DAILY, First dose on Sun09/03/12 at 1930, Until Discontinued 2039 (Given - Provider: Genet Chun RN) 0900 (Hold - Provider: Eve Friedman RN - Reason: See comment - Comment: Patient takes at night) levothyroxine (SYNTHROID) tablet 250 mcg 250 mcg, Oral, NIGHTLY, First dose (after last modification) on Sun09/04/12 at 2100, Until Discontinued 2100 (Given - Provider: Carmen Cisneros RN) NIFEdipine (PROCARDIA) capsule 20 mg (COMPLETED)(Linked Group 1) 20 mg, Oral, ONCE, 1 dose, On Sun09/04/12 at 1145, May repeat in 30 minutes if still jemima, Routine 1206 (Given - Provider: Eve Friedman RN) NIFEdipine (PROCARDIA) capsule 20 mg (CANCELED)(Linked Group 1) 20 mg, Oral, EVERY 8 HOURS, First dose on Sun09/04/12 at 1945, Until Discontinued, Hold NIFEdipine for blood pressure less than 85/55 mmHg and notify provider, Routine 194 (Due)2009 (Given - Provider: Carmen Cisneros, TRE) 0400 (Given - Provider: Carmen Cisneros, TRE) vitamin 27 & [id number] 60 mg iron-1 mg tablet Tab 1 tablet (CANCELED) 1 tablet, Oral, DAILY, First dose on Sun09/03/12 at 1930, Until Discontinued, Routine 1929 (Not Given - Provider: Genet Chun RN - Reason: NPO) 0900 (Given - Provider: Eve Friedman, TRE) 0834 (Given - Provider: Maite Luke) sodium chloride 0.9 % flush 5 mL (CANCELED) 5 mL, Intravenous, EVERY 12 HOURS, First dose on Sun09/03/12 at 1930, Until Discontinued 1929 (Given - Provider: Genet Chun RN) 0730 (Given - Provider: Eve Friedman, TRE)193 (Due) 0759 (Given - Provider: Maite Luke) Continuous Medication Order 09/03/2012 09/04/2012 09/05/2012 lactated ringers infusion 1,000 mL (CANCELED) 1,000 mL, at 100 mL/hr, Intravenous, CONTINUOUS, Starting on Sun09/03/12 at 1930, Until Sun09/05/12 at 1257 1930 (New Bag - Provider: Genet Chun RN) 0530 (New Bag - Provider: Renetta Hurt, TRE)1614 (Stopped - Provider: Taty Sepulveda, TRE) PRN Medication Order 09/03/2012 09/04/2012 09/05/2012 acetaminophen (TYLENOL) tablet 650 mg (CANCELED) 650 mg, Oral, EVERY 4 HOURS PRN, Starting on Sun09/03/12 at 1906, Until Sun09/05/12 at 1257, Pain, Headaches, mild pain, Not exceed 4 grams per 24 hours, Routine 1953 (Given - Provider: Genet Chun RN) ondansetron (ZOFRAN) injection 4-8 mg (CANCELED) 4-8 mg, Intravenous, EVERY 8 HOURS PRN, Starting on Sun09/04/12 at 1221, Until Sun09/05/12 at 1257, Nausea, Vomiting 1236 (Given - Provider: Eve Friedman, RN) zolpidem (AMBIEN) tablet 5 mg (CANCELED) 5 mg, Oral, NIGHTLY PRN, Starting on Sun09/03/12 at 1906, Until Sun09/05/12 at 1257, Sleep, Routine 2307 (Given - Provider: Genet Chun, TRE) 2136 (Given - Provider: Carmen Cisneros RN) Linked Groups Order Group 1: NIFEdipine (PROCARDIA) capsule 20 mg (COMPLETED)Jump to med 20 mg, Oral, ONCE, 1 dose, On Sun09/04/12 at 1145, May repeat in 30 minutes if still jemima, Routine Followed by NIFEdipine (PROCARDIA) capsule 20 mg (CANCELED)Jump to med 20 mg, Oral, EVERY 8 HOURS, First dose on Sun09/04/12 at 1945, Until Discontinued, Hold NIFEdipine for blood pressure less than 85/55 mmHg and notify provider, Routine documented in this encounter Care Teams Freelance Operator Relationship Specialty Start Date End Date None None PCP - General 05/08/12 04/20/14 documented as of this encounter
--- OUTSIDE RECORDS SUMMARY | 2023-10-29 04:02 | XMS_ITS | Encounter Summary ---
Author Organization [facility] [place] [address] Care Team Providers Care Plastics Design Engineer Name Role Phone None Primary Care Provider Unavailabl e Encounter Details Date Type Department Care Team (Late st Contact Info) Description 03/23/2011 Orders [place] [id number] Chloé Santa, RN Social History Tobacco Use [...] Contact Info) Description 05/23/2024 Hospital [place] [id number] Maite Malloy MD [facility] [address] documented as of this encounter Visit Diagnoses Not on filedocumented in this encounter Care Teams Plastics Design Engineer Relationship Specialty Start Date End Date None None PCP - General 02/23/11 05/09/11 documented as of this encounter
--- OUTSIDE RECORDS SUMMARY | 2023-10-29 04:02 | XMS_ITS | Encounter Summary ---
Author Organization [facility] Address [facility] [place] [address] Care Team Providers Care Toggler Name Role Phone None Primary Care Provider Unavailabl e Reason for Visit * Reason Comments Vaginal Pain Encounter Details Date Type Department Care Team (Latest Contact Info) Description 08/04/2012 5:07 AM EDT - 08/04/2012 11:51 AM EDT Hospital Encounter [place]thing [place] [address] [facility] OBSTETRICS & [place] [address] Discharge Disposition: Home Social History Tobacco Use [...] Sign Reading Time Taken Comments Blood Pressure 108/56 08/04/2012 5:26 AM EDT Pulse 65 08/04/2012 5:26 AM EDT Temperature 36.6 ??C (97.9 ??F) 08/04/2012 5:26 AM ED T Respiratory Rate 18 08/04/2012 5:26 AM EDT Oxygen Saturation 99% 08/04/2012 5:26 AM EDT Inhaled Oxygen Concentration - - Weight - - Height - - Body Mass Index - - documented in this encounter Discharge Instructions * Discharge Instructions* Tayla Dumas RN - 08/04/2012 11:45 AM EDT [facility] [place] [address] [facility] to contact OB doctor [phone] to contact family doctor to contact senior test engineer Preethi [email or web address] 11:42 AM [facility] to contact OB doctor [facility] to [place] [address] to contact family doctor Following your visit to [facility] Triage [facility] to contact OB doctor [facility] to [place] [address] to contact family doctor [facility] Provider: GESTATION - Less Than 37 Weeks [...] a vaginal exam in your doctor's or senior test engineer's office you should not bleed as much [...] dehydration Keep your regularly scheduled doctor or senior test engineer appointment NEW MEDICATIONS: SPECIAL INSTRUCTIONS/FOLLOW-UP CARE: documented in this encounter Medications at Time of Discharge Medication Sig Dispensed Refills Start Date End Date butalbital-acetaminophen -caffeine (FIORICET, ESGIC) per tabletIndications:Migrai ne,, supervision of, high-risk Take 1 tablet by mouth every 4 hours as needed for Pain. 30 tablet 0 07/04/2012 09/02/2012 levothyroxine (SYNTHROID) 200 mcg tablet Take 300 mcg by mouth daily. 08/08/2012 ONDANSETRON HCL (ZOFRAN ORAL) Take by mouth. 04/21/2014 RANITIDINE HCL (ZANTAC ORAL) Take by mouth. 04/21/2014 VITS W-CA,FE,FA,<1MG, ( VITAMIN ORAL) Take by mouth. documented as of this encounter Progress Notes * Tayla Dumas RN - 08/04/2012 11:30 AM EDT The patient has returned from US. She seems to be in better spirits. Dr. Chinchilla and Dr. Leroy in to examine the patient. She is discharged home with her Mother. She is to see Dr. Pearce in the clinic. She states that she has an appointment. * Tayla Dumas RN - 08/04/2012 10:21 AM EDT The patient has spent the majority of the morning crying. I asked her if she took anything for her anxiety and she got upset and started crying and saying that she does not need anything for anxiety.She is anxious because of her prior miscarriages and the fact that she is in labor now. I reassuredher that no one told her that she was in labor. At this point we do not know. We are awaiting an UScurrently. She got oob to go to the BR and decided that she did not want to lie down again despite Dr. Sepulveda and myself telling her that she should stay in bed for now, until the US is done. * Katelynn Baltazar - 08/04/2012 7:44 AM EDT OB Triage Note: ID: Preethi Hummel is a 22 y.o. at 25w5d who presents to triage due to vaginal and abdominal pain. complicated by: -hypothyroidism s/p total thyroidectomy (on Synthroid 300mcg daily) -anti-Estuardo antibodies -per patient, h/o 20 week delivery without any care; patient discarded the remains S: Preethi presents this morning reporting that last night around 6pm she began to notice sharp vaginal pains and L-sided lower abdominal discomfort. The pain is constant. Denies any contraction-type pain. She says that during the day she walked 4.5 miles and took some sips of fluid before and after. No vaginal bleeding. Reports that she passed a chunk of mucous vaginally with some resultant dampness, but denies any continued leakage. Excellent FM. Reports always having a MINAYA, and is currently ill with upper respiratory congestion. Reports frequent nausea in this . ROS otherwise negative to 10-point review of systems. O: Filed Vitals: 08/04/12 0526 BP: 108/56 Pulse: 65 Temp: 36.6 ??C (97.9 ??F) Resp: 18 General: well-developed, well-nourished, in no acute distress Abdomen: gravid, mildly tender to palpation in lower abdomen to the L of the midline SSE: normal-appearing cervix (appears visually to have some length) with white discharge in the vaginal vault, no pooling, negative nitrazine, negative ferning Cervical exam: 1cm/100%/-4 Wet Mount: negative for clue cells, trichomonas, yeast EFM: Category I: Baseline 130s, moderate variability, +accelerations, no decelerations TOCO: no contractions A/P: Preethi Hummel is a 22 y.o. at 25w5d with PMH significant for self-reported h/o 20 week vaginal delivery, being evaluated for vaginal/abdominal pain. No evidence of LOF, vaginal bleeding or vaginitis. Last cervical length was 3.7-4cm on 07/19/2012. Consider labor vs cervical incompetence. -Given concerning cervical exam, will obtain TVUS for cervical length this morning. -FFN collected. Will send for analysis. -Category I tracing without any contractions on toco; continuous EFM Plan discussed with Dr. Maite Pearce, Attending Physician. KATELYNN BALTAZAR MD 08/04/2012 * Valencia Hammer RN - 08/04/2012 6:16 AM EDT Pt. To triage, reports vaginal pain all day. Using marker to document when vaginal pain happening. No bleeding, no leaking. On EFM. VS and NST as documented. Void. Urine dip WDL. MD Baltazar in at bedside. Speculum exam. Clean catch ua, FFN, wet prep, nitrazine collected. Will continue to monitor. documented in this encounter Plan of Treatment Upcoming Encounters Date Type Department Care Team (Late st Contact Info) Description 05/23/2024 [facility] [place] [address] [facility] [place]ST[place] [address] documented as of this encounter Procedures Procedure Name Priority Date/Time Associated Diagnosis Comments US OB FOLLOW UP Routine 08/04/2012 11:07 AM EDT RAPID DRUG SCREEN W/O CONFIRMATION, URINE Routine 08/04/2012 9:03 AM EDT URINALYSIS WITHOUT MICROSCOPIC Routine 08/04/2012 9:03 AM EDT URINE CULTURE Routine 08/04/2012 9:03 AM EDT FIBRONECTIN (CARIE) Routine 08/04/2012 7:10 AM EDT documented in this encounter Results * US OB follow up evaluation (08/04/2012 11:07 AM EDT) Anatomical Region Laterality Modality Pelvis, Abdomen Ultrasound 08/04/2012 11:0 7 AM EDT Narrative 08/05/2012 2:17 PM EDT ? OBSTETRICS REPORT ? (Signed Final 08/05/2012 02:16 pm) Patient Info ID: ?[id number] ?: ??[birth year] (22 yrs) Name: ?PREETHI Godoy ? Visit Date: 08/04/2012 10:21 am ?LOUISE- ?FRANK Performed By Performed By: ?Alicia Redding RDMS Attending: ? Selina LIMA, Maite Wilson Referred By: ? KATELYNN BALTAZAR MD Service(s) Provided UOBFOL - Efw - Growth - Reevaluation - [place] ?[id number] - [id number] UOBTV - Viability - Cervical Length - Transvaginal - ??[id number] Indications 22yo with history of delivery, now with pelvic discomfort. Please check cervical length Evaluation Num Of Fetuses: ?1 Heart Rate: ??135 ? bpm Cardiac Activity: ??Observed, normal rhythm Presentation: ?Oblique Placenta: ?Anterior P. Cord ?Within Normal Limits Insertion: Amniotic Fluid UDAY FV: ?Normal UDAY Sum: ? 11.7 ?cm ? Larg Pckt: ? 4.1 ??cm RUQ: ?? 4.1 ?cm ? LUQ: ?? 3.7 ?cm RLQ: ?? 1.5 ?cm ? LLQ: ?? 2.4 ?cm -------- Biometry -------- BPD: ?72 ??mm ?G. Age: ?? 28w 6d ? > 97 ??% HC: ? 273 ?? mm ?G. Age: ?? 29w 6d ? > 97 ??% AC: ? 230 ?? mm ?G. Age: ?? 27w 3d ? 86 ??% FL: ? 46 ??mm ?G. Age: ?? 25w 2d ? 24 ??% HUM: ?46 ??mm ?G. Age: ?? 27w 1d ? 79 ??% CI: ? 70.67 ??% ? 70 - 86 FL/HC: ? 16.8 ??% ? 18.6 - 20.4 HC/AC: ? 1.19 ?1.04 - 1.22 FL/BPD: ?63.9 ??% ? 71 - 87 FL/AC: ? 20.0 ??% ? 20 - 24 Est. FW: ?1006 ??gm ?2 lb 3 oz ? 92 ??% Gestational Age LMP: ? 23w 4d ?Date: ??02/21/12 ? ZAYDA: ?? 11/27/12 U/S Today: ? 27w 6d ?ZAYDA: ?? 10/28/12 Best: ?25w 5d ?? Det. By: ??Early ?ZAYDA: ?? 11/12/12 ? Ultrasound ? (04/02/12) ------- Anatomy ------- Cranium: ? Visualized Cavum: ? Not seen well due to position Ventricles: ?Visualized Choroid Plexus: ?Visualized Cerebellum: ?Visualized Posterior Fossa: ?? Visualized Nuchal Fold: ? Not evaluated at this gestational age Face: ?Limited views Heart: ? Limited Views RVOT: ?Limited views LVOT: ?Limited views Diaphragm: ? Visualized Stomach: ? Visualized Abdomen: ? Within Normal Limits Abdominal Wall: ?Not seen due to position Cord Vessels: ?3-vessels- WNL Kidneys: ? Visualized Bladder: ? Visualized Spine: ? Limited views Lower ?Limited views Extremities: Upper ?Limited views Extremities: Cervix Uterus Adnexa Cervix: ? Within Normal ??Limits No change with fundal ? pressure Left Ovary: ?? Visualized Right Ovary: ??Visualized Impression 2nd Trimester - Summary Single intrauterine with a gestational age of 25w 5d based on early ultrasound. ??Composite age based on the current ultrasound alone is 27w 6d. Current growth parameters are consistent indicating LGA fetus. ??Amniotic fluid volume is Normal, UDAY = 11.7 cm. ??Normal cervical length with and without fundal pressure. ??Limited anatomic evaluation was performed and no structural abnormalities are noted. Transabdominal and transvaginal ultrasound was performed. I ??viewed the images and agree with the above interpretation. Thank you for allowing us to participate in the care of PREETHI MARTINFRANK. Please do not hesitate to call if you have any questions. ? Maite Pearce MD Electronically Signed Final Report ?? 08/05/2012 02:16 pm Procedure Note Maite Pearce MD - 08/05/2012 OBSTETRICS REPORT (Signed Final 08/05/2012 02:16 pm) Patient Info ID: [id number] : [birth year] (22 yrs) Name: PREETHI Godoy Visit Date: 08/04/2012 10:21 am MARIO MARIE Performed By Performed By: Alicia Redding [facility] Attending: Maite Pearce MD Referred By: KATELYNN BALTAZAR MD Service(s) Provided UOBFOL - Efw - Growth - Reevaluation - [place] [id number] - [id number] UOBTV - Viability - Cervical Length - Transvaginal - [id number] Indications 22yo with history of delivery, now with pelvic discomfort. Please check cervical length Evaluation Num Of Fetuses: 1 Heart Rate: 135 bpm Cardiac Activity: Observed, normal rhythm Presentation: Oblique Placenta: Anterior P. Cord Within Normal Limits Insertion: Amniotic Fluid UDAY FV: Normal UDAY Sum: 11.7 cm Larg Pckt: 4.1 cm RUQ: 4.1 cm LUQ: 3.7 cm RLQ: 1.5 cm LLQ: 2.4 cm -------- Biometry -------- BPD: 72 mm G. Age: 28w 6d > 97 % HC: 273 mm G. Age: 29w 6d > 97 % AC: 230 mm G. Age: 27w 3d 86 % FL: 46 mm G. Age: 25w 2d 24 % HUM: 46 mm G. Age: 27w 1d 79 % CI: 70.67 % 70 - 86 FL/HC: 16.8 % 18.6 - 20.4 HC/AC: 1.19 1.04 - 1.22 FL/BPD: 63.9 % 71 - 87 FL/AC: 20.0 % 20 - 24 Est. FW: 1006 gm 2 lb 3 oz 92 % Gestational Age LMP: 23w 4d Date: 02/21/12 ZAYDA: 11/27/12 U/S Today: 27w 6d ZAYDA: 10/28/12 Best: 25w 5d Det. By: Early ZAYDA: 11/12/12 Ultrasound (04/02/12) ------- Anatomy ------- Cranium: Visualized Cavum: Not seen well due to position Ventricles: Visualized Choroid Plexus: Visualized Cerebellum: Visualized Posterior Fossa: Visualized Nuchal Fold: Not evaluated at this gestational age Face: Limited views Heart: Limited Views RVOT: Limited views LVOT: Limited views Diaphragm: Visualized Stomach: Visualized Abdomen: Within Normal Limits Abdominal Wall: Not seen due to position Cord Vessels: 3-vessels- WNL Kidneys: Visualized Bladder: Visualized Spine: Limited views Lower Limited views Extremities: Upper Limited views Extremities: Cervix Uterus Adnexa Cervix: Within Normal Limits No change with fundal pressure Left Ovary: Visualized Right Ovary: Visualized Impression 2nd Trimester - Summary Single intrauterine with a gestational age of 25w 5d based on early ultrasound. Composite age based on the current ultrasound alone is 27w 6d. Current growth parameters are consistent indicating LGA fetus. Amniotic fluid volume is Normal, UDAY = 11.7 cm. Normal cervical length with and without fundal pressure. Limited anatomic evaluation was performed and no structural abnormalities are noted. Transabdominal and transvaginal ultrasound was performed. I viewed the images and agree with the above interpretation. Thank you for allowing us to participate in the care of PREETHI HUMMEL. Please do not hesitate to call if you have any questions. Maite Pearce MD Electronically Signed Final Report 08/05/2012 02:16 pm Maite Pearce MD IMG US OB ORDERABLES * Urine culture Clean Catch Urine (08/04/2012 9:03 AM EDT) Urine Culture ? Patient Name: JOANNA CAIN, ?? Ordered By: MAITE PEARCE ? PREETHI Godoy ? MR#: [id number] ?LOC: ??[facility]PA ? /Sex: ?? 2 (22 years), ? Female ? PROCEDURE: Urine Culture ?SOURCE: U CC ? COLLECTED: 08/04/2012 09:03 ? STARTED: 08/04/2012 09:19 ? FINAL REPORT ? Final Report ? Verified: 07:46 ? No growth (Less than 1,000 cfu/ml). ? ____ HANNAH SERRANO Urine specimen obtained by clean catch procedure (specimen) 08/04/2012 9:03 AM EDT 08/04/2012 9:19 AM EDT Narrative Resulting Agency Comment Spec In Lab Maite Pearce MD MICROBIOLOGY - GENER AL ORDERABLES HANNAH SERRANO * (ABNORMAL) Rapid Qual Drug Screen, Urine ([facility]) (08/04/2012 9:03 AM EDT) TIFFANIE Marijuana Metabolites Scr None Detected None Detected CERNER TORINENNIUM Comment: Please note that as of 04/12/2012 the testing device changed to the PROFILE-V MEDTOXScan Drugs of Abuse Test System. The marijuana metabolites screen detects the THC Metabolite (19-vzl-6-carboxy- 9-THC) ??at concentrations >50 ng/mL. Be aware [...] from similar or dissimilar cross-reacting drugs. TIFFANIE Buprenorphine Scr None Detected None Detected CERNER MILLENNIUM Comment: Please note that as of 04/12/2012 the testing device changed to the PROFILE-V Smart GPS Backpack Drugs of Abuse Test System. The buprenorphine [...] or dissimilar cross-reacting drugs. Urine specimen (specimen) 08/04/2012 9:03 AM EDT 08/04/2012 9:16 AM EDT Narrative Resulting Agency Comment Spec In Lab Maite Pearce MD URINE ORDERABLES Performing Organization Address City/[facility] Co de Phone Number CERSWETA MILLENNIUM * (ABNORMAL) Urinalysis without microscopic (08/04/2012 9:03 AM EDT) Glucose UA Negative Negative mg/dL CERNER MILLENNIUM Protein UA Negative mg/dL CERNER MILLENNIUM Bilirubin UA Negative Negative mg/dL CERNER MILLENNIUM Urobilinogen UA Normal mg/dL CERN ER MILLENNIUM pH UA 6.5 5.0 - 8.0 CERNER MILLENNIUM Blood UA Negative mg/dL CERNER MILLENNIUM Ketones UA Negative mg/dL CERNER MILLENNIUM Nitrite UA Negative CERNER MILLENNIUM Leukocytes UA Negative mcL CERNER MILLENNIUM Appearance UA Hazy(A) Clear CERNER MILLENNIUM Spec Dow UA 1.013 1.002 - 1.030 CERNER MILLENNIUM Color UA Yellow Yellow CERNER MILLENNIUM Urine specimen (specimen) 08/04/2012 9:03 AM EDT 08/04/2012 9:16 AM EDT Narrative Resulting Agency Comment Spec In Lab Maite Pearce MD URINE ORDERABLES Performing Organization Address City/[facility]/ZIP Co de Phone Number HANNAH MILLENNIUM * Fibronectin (08/04/2012 7:10 AM EDT) Fibronect Neg [facility] Comment: Results may be invalid if sample is contaminated with WBCs, RBCs, bacteria, bilirubin, douches, lubricants, soaps, disinfectants, creams (e.g. Monistat, [place] jelly). ??Manipulations of the cervix may lead to a false positive result; specimen should be obtained prior to digital examination or manipulation of the cervix. Specimen should not be collected < 24 hours after intercourse. Interpretation of a NEGATIVE result: a) 124 out of 125 symptomatic women with a negative result will not deliver within the next 14 days* b) 15 out of 16 high-risk asymptomatic women with a negative result will not spontaneously deliver before 37 weeks+ Interpretation of a POSITIVE result: a) 1 out of 6 symptomatic women with a positive result will deliver within the next 14 days of the test+ b) 1 out of 2 high-risk asymptomatic women with a positive result will spontaneously deliver before 37 weeks+ *Collin et al. Am J Obstet Gynecol 1997;177:13-18 +Charito et al. Am J Obstet Gynecol 1994;170:20-25 Specimen of unknown material (specimen) 08/04/2012 7:10 AM EDT 08/04/2012 7:39 AM EDT Narrative Resulting Agency Comment Spec In Lab Maite Pearce MD BODY FLUIDS AND DEBBIE MCCLENDON ORDERABLES Performing Organization Address City/State/[facility] Co de Phone Number [facility] documented in this encounter Visit Diagnoses Not on filedocumented in this encounter Care Teams Toggler Relationship Specialty Start Date End Date None None PCP - General 05/08/12 04/20/14 documented as of this encounter
--- OUTSIDE RECORDS SUMMARY | 2023-10-29 04:02 | XMS_ITS | Encounter Summary ---
Author Organization [facility] [place] [address] Care Team Providers Care Yam Curer Name Role Phone None Primary Care Provider Unavailabl e Encounter Details Date Type Department Care Team (Late st Contact Info) Description 05/28/2012 External Results [place] [phone] Provider, Scanning Social History Tobacco Use Types Packs/Day Years [...] Info) Description 05/23/2024 Hospital [place] [phone] Maite Malloy MD [facility] [address] OBSTETRICS [place] [address] documented as of this encounter Procedures Procedure Name Priority Date/Time Associated Diagnosis Comments LAB SCAN Routine 05/21/2012 documented in this encounter Results * Scan Doc: Lab (05/21/2012) Scanning Provider MEDIA MGR SCAN EXT O RDR/RSLT documented in this encounter Visit Diagnoses Not on filedocumented in this encounter Care Teams Yam Curer Relationship Specialty Start Date End Date None None PCP - General 05/08/12 04/20/14 documented as of this encounter
--- OUTSIDE RECORDS SUMMARY | 2023-10-29 04:02 | XMS_ITS | Encounter Summary ---
Author Organization [facility] [place] [address] Care Team Providers Care Silk Screener Name Role Phone None Primary Care Provider Unavailabl e Reason for Visit * Reason Onset Date Comments Muscle Pain 06/18/2012 Encounter Details Date Type Department Care Team (Late st Contact Info) Description 06/18/2012 Telephone Obstetrics and Gynecology at [facility] [place] [phone] Estelle Ribeiro RN Muscle Pain Social History Tobacco Use Types Packs/Day Years [...] Miscellaneous Notes * Telephone Encounter - Estelle Ribeiro RN - 06/18/2012 1:00 PM EST Now 19 weeks gest, Andree is concerned about right sided pain that is not resolving, its there allthe time, just sometimes worse. It started with severe coughing from URI. The pain is not in her ribs, more to one side than the other. She is not sleeping, hardly at all. I know my body and something is off. Assessment: round ligament pain discussed as a possibility but it is not a constant pain. Plan: As pain has been present for weeks now, next available appointment time is Sunday. Appt givento see Dr. Marks for discussion of pain. documented in this encounter Plan of Treatment Upcoming Encounters Date Type Department Care Team (Late st Contact Info) Description 05/23/2024 [place] [address] Maite Malloy MD [facility] [address] OBSTETRICS [place] [address] documented as of this encounter Visit Diagnoses Not on filedocumented in this encounter Care Teams Silk Screener Relationship Specialty Start Date End Date None None PCP - General 05/08/12 04/20/14 documented as of this encounter
--- OUTSIDE RECORDS SUMMARY | 2023-10-29 04:02 | XMS_ITS | Encounter Summary ---
Author Organization [facility] [place] [address] Care Team Providers Care Medical Accounts Receivable Specialist Name Role Phone None Primary Care Provider Unavailabl e Reason for Visit * Reason Comments Routine Visit Encounter Details Date Type Department Care Team (Latest Contact Info) Description 07/04/2012 4:15 PM EDT Routine Obstetrics [place] [address] Walt Bay MD [facility] [address] OBSTETRICS & [place] [address] GA: 21w2d Discharge Disposition: Home Social History Tobacco Use [...] Sign Reading Time Taken Comments Blood Pressure 116/70 07/04/2012 4:08 PM EDT Pulse - - Temperature - - Respiratory Rate - - Oxygen Saturation - - Inhaled Oxygen Concentration - - Weight 92.9 kg (204 lb 11.2 oz) 07/04/2012 4:08 PM EDT Height - - Body Mass Index 31.12 05/22/2012 9:21 AM EST documented in this encounter Progress Notes * Walt Bay MD - 07/04/2012 4:51 PM EDT Cervical length: 3.8cm; no dynamic change. Plan for one more cervical length in 2 weeks. Significant nausea/vomiting, but no emesis today. Has gained 2kg since last appointment. States sheis unable to void. Also has had unremitting headache; no relief with Tylenol. Complains of a lot offetal movement at night, which keeps her from sleeping well. Diastasis recti: reduces when lying flat. Plan: Phenergan for nausea. Fioricet for migraine headache. Reviewed causes of diastasis; recommendations. GTT at [facility]; slip given. RTC 2 weeks for cervical length. If normal length, no further surveillance. documented in this encounter Plan of Treatment Upcoming Encounters Date Type Department Care Team (Late st Contact Info) Description 05/23/2024 Hospital [place] [address] Maite Malloy MD [facility] [address] OBSTETRICS [place] [address] documented as of this encounter Visit Diagnoses Diagnosis Migraine- Primary Migraine, unspecified, without mention of intractable migraine without mention of status migrainosus , supervision of, high-risk Unspecified high-risk documented in this encounter Care Teams Medical Accounts Receivable Specialist Relationship Specialty Start Date End Date None None PCP - General 05/08/12 04/20/14 documented as of this encounter
--- OUTSIDE RECORDS SUMMARY | 2023-10-29 04:02 | XMS_ITS | Encounter Summary ---
Author Organization [facility] Address [facility] [place] [address] Care Team Providers Care Ecommerce Manager Name Role Phone None Primary Care Provider Unavailabl e Reason for Visit * Reason Comments Abdominal Cramping Encounter Details Date Type Department Care Team (Latest Contact Info) Description 07/10/2012 10:58 PM EDT - 07/11/2012 12:38 AM EDT Hospital Encounter Birthing [place] [address] Maite Marks MD [facility] OBSTETRICS [place] [address] Discharge Disposition: Home Social History Tobacco Use [...] Sign Reading Time Taken Comments Blood Pressure 119/68 07/10/2012 11:10 PM EDT Pulse 89 07/10/2012 11:10 PM EDT Temperature 36.8 ??C (98.2 ??F) 07/10/2012 11:10 PM E DT Respiratory Rate 16 07/10/2012 11:10 PM EDT Oxygen Saturation 97% 07/10/2012 11:10 PM EDT Inhaled Oxygen Concentration - - Weight - - Height - - Body Mass Index - - documented in this encounter Discharge Instructions * Discharge Instructions* Zane Perkins RN - 07/11/2012 12:35 [place] [address] [facility] to contact OB doctor [phone] to contact family doctor to contact piece dye worker Andree Hummel @[email or web address]@ 12:35 AM Following your visit to [facility] Triage Reason for Visit: Chief Complaint Patient presents with ??? Abdominal Cramping Term Gestation - 37 through 42 weeks gestation Notify your provider if: You are having painful contractions/abdominal cramps less than 5 minutes apart for 1 hour walking, resting, or any kind of activity does not make them less painful or go away You have ruptured your membranes Small leakage of fluid or large gush Note appearance of fluid amount color (may be clear, yellowish, green, pea soup-like, blood-tinged, or bloody) time You have noticed a marked decrease in your baby's movement refer to your kick count instructions in the Your Journey book Your baby should move at least 10 times in 2 hours You have had any direct trauma to your abdomen such as a car accident, fall, or impact Gestation - under 37 weeks Notify your provider if: You are feeling any cramping sensations in your abdomen more than 20 minutes apart Edil-Vazquez Contractions usually [...] a vaginal exam in your doctor's or piece dye worker's office you should not bleed as much as a period You have noticed a marked decrease in your baby's movement refer to your kick count instructions in the Your Journey book Your baby should move at least 10 times in 2 hours You have had any direct trauma to your abdomen such as a car accident, fall, or impact Call your doctor or piece dye worker if you have the following symptoms: Headache [...] dehydratio Keep your regularly scheduled doctor or piece dye worker appointment Your medications: No current facility-administered medications on file prior to encounter. Current Outpatient Prescriptions on File Prior to Encounter Medication Sig Dispense Refill ??? gtxmisstbz-maakibclvgmli-suzakbwg (FIORICET, ESGIC) per tablet Take 1 tablet by mouth every 4 hours as needed for Pain. 30 tablet 0 ??? promethazine (PHENERGAN) 25 mg tablet Take 1 tablet by mouth every 6 hours as needed for Nauseafor 7 days. 30 tablet 0 ??? levothyroxine (SYNTHROID) 200 mcg tablet Take 300 mcg by mouth daily. ??? ONDANSETRON HCL (ZOFRAN ORAL) Take by mouth. ??? RANITIDINE HCL (ZANTAC ORAL) Take by mouth. ? ? VITS W-CA,FE,FA,<1MG, ( VITAMIN ORAL) Take by mouth. Special instructions/Follow-up Care: Space for patient-specific care or instructions If you have any other questions or concerns please call your provider at their office number documented in this encounter Medications at Time of Discharge Medication Sig Dispensed Refills Start Date End Date promethazine (PHENERGAN) 25 mg tabletIndications:Migrai ne,, supervision of, high-risk Take 1 tablet by mouth every 6 hours as needed for Nausea for 7 days. 30 tablet 0 07/04/2012 07/11/2012 butalbital-acetaminophen -caffeine (FIORICET, ESGIC) per tabletIndications:Migrai ne,, [...] as of this encounter Progress Notes * Joshua Sepulveda MD - 07/10/2012 11:42 PM EDT OB TRIAGE NOTE Andree Hummel 22 y.o. 22w1d [id number] CC: I fell on my left side and now I feel cramps in my abdomen. S: Around 2114 she was chasing her 2 year old niece when she slipped on a banana peel and landed onher left side. She denies hitting her head or abdomen. Immediately after she began feeling period cramps which start on her left side and then radiate across her stomach. Feels like being jabbed witha light saber. This lasts for 2 seconds to 15 minutes. She feels cramping constantly however the location is intermittent. Complains of a sore left elbow and nausea. She also states that she hasn'tfelt the baby move since the fall. No bleeding, LOF, headache, changes in vision. O: Filed Vitals: 07/10/12 2310 BP: 119/68 Pulse: 89 Temp: 36.8 ??C (98.2 ??F) Resp: 16 CV - RRR, no murmurs appreciated Lungs - CTA bilaterally Abdomen - Tender to palpation in the LLQ from just above the pubic symphysis to the left flank. No bruising or skin trauma. No tenderness over the ribs. No palpable contractions. FHRT - doppler tones 150 bpm Bedside ultrasound: Excellent movement, > 5 gross movements in 10 minutes. Placenta appears intact with no sign of abruption. A/P: 22 y/o at 22w2d presenting after falling in her home on a hardwood floor and landing on her left side with reassuring doppler tones, movement, and no sign of bleeding. She is in stable condition at this time with no apparent injuries from her fall other than muscle soreness. - Provided reassurance. - Discharged home with instruction to call if she notices bleeding. - advised to take Tylenol for muscle discomfort. Discussed with Adebayo Bass MD * Zane Perkins RN - 07/10/2012 11:00 PM EDT Pt presents to BP triage after a fall at home. Pt reports slipping on a banana peel and falling on her left side and elbow. She immediately stood up and started having cramping and sharp pains in herlower abdomen. Pt also reports feeling a gush as if she had urinated but states she does not believe she did. There does not appear to be any fluid on her panties at this time; this RN placed a nirmala pad on her to monitor for possible leaking. Pt's abdomen is soft and very tender to touch, and she is unable to take a full deep breath without experiencing abdominal pain also, 8/10. Lung sounds clear, no visible bruises or abrasions. FHT with doppler are 149; decreased movement. MD Dianne n otified. 0040- pt has been evaluated by MD Dianne. Ultrasound reassuring. No bleeding or LOF. Okay to discharge per MD Dianne. Discharge instructions given and pt leaving via wheel chair with father. documented in this encounter Plan of Treatment Upcoming Encounters Date Type Department Care Team (Late st Contact Info) Description 05/23/[address] [place] [place] [address] Maite Malloy MD [facility] [place] [address] documented as of this encounter Visit Diagnoses Not on filedocumented in this encounter Active and Recently Administered Medications Care Teams Ecommerce Manager Relationship Specialty Start Date End Date None None PCP - General 05/08/12 04/20/14 documented as of this encounter
--- OUTSIDE RECORDS SUMMARY | 2023-10-29 04:02 | XMS_ITS | Encounter Summary ---
Author Organization [facility] [place] [address] Care Team Providers Care Director Payment Name Role Phone None Primary Care Provider Unavailabl e Encounter Details Date Type Department Care Team (Late st Contact Info) Description 06/12/2012 Notes Only Obstetrics [place] [address] Marita Anders, [facility] DR OBSTETRICS & [place] [address] Social History Tobacco Use Types Packs/Day Years [...] of this encounter Progress Notes * Marita Andesr MSW - 06/12/2012 2:18 PM EST Care Management/Social Work Referral/Contact: Referred by [facility] service for support around substance abuse/mental health. S: I'm a single, unemployed mother. O: Met with patient, Andree (pronounced Sercha), following her US appt. Patient was pleased to have US pictures of her baby, whose gender she does not wish to know. When asked why she thinks she may have been referred to Machining Supervisor, patient identified that she is single and unemployed. Andree stated she recently was fired from her job at [employer], stating that she had been late for work and missed work. Due to being fired, she was unable to get unemployment, so has no income. Patient reported she is living alone in a 2- bedroom rented apartment ($600/month not including heat and electric), and is now 3 months behind in the rent. Patient stated she can't live back home, due to concerns for her parents' financial situation, or burdening them with a baby. Patient stated her mother works at [employer]. Patient discussed a variety of plans about where she may live. Andree expressed a desire to leave [place], [place], in order to get away from her current group of friends, and make a fresh start for herself and her baby. Patient expressed that this baby saved her life, which she explained by her decision to stop using drugs and alcohol when she became . Patient stated she has in the past used opiates, marijuana, cocaine, and alcohol. Per patient's report, she used marijuana a week after finding out she was . However, when mandated reporting was discussed, including testing of baby's urine and meconium, patient remembered that she had used THC more recently, perhaps 3 weeks ago. Encouraged patient to discontinue use of THC and any drugs or ETOH. Reminded patient that OB provider can help with medication if she is experiencing nausea or reduced appetite. Patient asked many questions about mandated reporting and testing of baby, and appeared concerned. Patient expressed concern about the FOB, Haroon, whom she states has another child with a different woman. Patient stated FOB is not involved, and wanted [her] to have an . Patient asked ifwillie can put her fiance, Bryan, on the certificate. Asked patient if there is a chance Bryanis the father. Patient stated that Bryan has been in halfway since 2010, so there is no chance he is the father. She stated she is getting back together with her fiance (who will be out of halfway in July 2012), and he wants to adopt the baby. Patient asked many questions about paternity affidavit, parental rights, paternity testing, and adoption. Attempted to answer most of these, and also provided information on [facility] in [facility], and encouraged patient to seek advice of people who understand the legal implications of paternity, including knife grinder, court system, and DV support agencies. Explained that a paternity affidavit is a legal document, and it is not advisable to put qu estionable information on a legal document. Discussed hx of depression. Patient stated she was treated for thyroid cancer, and is under stress about that diagnosis. (Per record, ? of diagnosis after surgery? Cancer vs thyroiditis?) Patient stated she is on Synthroid, and her thyroid levels are all over the place, and she has an upcoming appt. with an art studio teacher. Patient stated with this worry, plus her loss of job and inability to pay rent, plus her recent quitting smoking, she finds she is quite emotional lately. Patient stated she uses coping strategies such as calling a friend to calm down. She feels that the hormones are the primary factor in her being emotional, and does not feel she needs medication at this time. Offered to assist with referral to Ps[facility] if patient changes her mind. Patient appeared very familiar with community resources in [facility]. She stated she is involved with [employer] and [employer] already, and has food stamps and WIC. Patient was considering applying for[employer] (discussed High Risk form), but is inclined not to, since she doesn't want the FOB pursued for child support. 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 A: Pleasant, 21-year-old single woman, 18 weeks (ZAYDA November 12). Patient presents as emotional, and is also getting over a cough she has had for 2 weeks. Patient is coping with a variety of psychosocial stressors, including: breakup with FOB, who does not support the ; re-involvement with fiance, who is currently incarcerated in [place]; hx of substance abuse (opiates, cocain e, MJ, ETOH), but reduced use since learning of this (no TIFFANIE done on patient to date); hxof thyroidectomy (? of diagnosis); hx of depression, currently untreated; hx of loss in prior (per record); recent loss of job; concern for homelessness; desire to relocate (givesvarious scenarios, including living with a friend in [place], moving to [place], [place] or other location in [place] (declined list of transitional housing for women), and moving to [place] to livewith aunt and uncle). Strengths include: Some family support; good knowledge of community resources; has accessed food stamps and WIC, and plans to apply for [place] Medicaid as secondary insurance (has application); utilizes food [employer] at [facility]; has stopped using opiates, per her report, 9 months ago, and reduced use of THC and ETOH upon learning of the ; has a year and a half of college. Patientappears to be bonding with her unborn child, and feels this has given her the strength to overcome a long-term substance habit, as well as cigarette addiction. This young woman has a great deal on her plate, and limited coping strategies. She would benefit from some counseling to address her depression, the life changes of the past year, and support her determination to remain clean and sober. However, patient states she is not a fan of counseling. Willcontinue to address this. P: SW to f/u with patient at future OB appt. Referred patient to [employer] for advice re paternity affidavit, [employer], and other issues related to FOB, whom patient feels is potentially abusive (no hx of abuse of patient). Informed patient of Full Restrictions option for inpatient stay. LEYDI Vicente, CARGO SERVICES COORDINATOR documented in this encounter Plan of Treatment Upcoming Encounters Date Type Department Care Team (Late st Contact Info) Description 05/23/2024 Hospital Encounter Birthing [facility] [place] [address] Maite Malloy MD [facility] OBSTETRICS [place] [address] documented as of this encounter Visit Diagnoses Not on filedocumented in this encounter Care Teams Director Payment Relationship Specialty Start Date End Date None None PCP - General 05/08/12 04/20/14 documented as of this encounter
--- OUTSIDE RECORDS SUMMARY | 2023-10-29 04:02 | XMS_ITS | Encounter Summary ---
Author Organization [facility] Address [facility] [place] [address] Care Team Providers Care Director Of Materials Management Name Role Phone None Primary Care Provider Unavailabl e Encounter Details Date Type Department Care Team (Late st Contact Info) Description 08/04/2012 Telephone Obstetrics [place] [address] Mely Klein MD [facility] DR OBSTETRICS & [place] [address] Social History Tobacco Use Types Packs/Day Years [...] Telephone Encounter - Mely Klein MD - 08/04/2012 3:38 AM EDT Received call from Andree that the pain she had earlier improved but then just went to bathroom andpassed huge chunk of mucous-- yellow/clear. No bleeding. No LOF. Good FM. Baby feels low. Did notget evaluated earlier after we spoke. Patient on her way in to for r/o PTL. documented in this encounter Plan of Treatment Upcoming Encounters Date Type Department Care Team (Late st Contact Info) Description 05/23/2024 [place] [address] Maite Malloy MD [facility] DR OBSTETRICS [place] [address] documented as of this encounter Visit Diagnoses Not on filedocumented in this encounter Care Teams Director Of Materials Management Relationship Specialty Start Date End Date None None PCP - General 05/08/12 04/20/14 documented as of this encounter
--- OUTSIDE RECORDS SUMMARY | 2023-10-29 04:02 | XMS_ITS | Encounter Summary ---
Author Organization [facility] [place] [address] Care Team Providers Care Registered Diet Technician Name Role Phone Mya Varghese MD Primary Care Provider [phone] Reason for Visit * Reason Comments Follow Up Surgery Encounter Details Date Type Department Care Team (Late st Contact Info) Description 05/10/2011 11:30 AM EST Office [place] [phone] Marlo Ko MD [facility] [place] [address] Follicular adenoma of thyroid gland; Hypothyroidism, postsurgical Discharge Disposition: Home Social History Tobacco Use [...] Reading Time Taken Comments Blood Pressure 111/75 05/10/2011 8:45 AM EST Pulse 84 05/10/2011 8:45 AM EST Temperature - - Respiratory Rate 16 05/10/2011 8:45 AM EST Oxygen Saturation 96% 05/10/2011 8:45 AM EST Inhaled Oxygen Concentration - - Weight 93.9 kg (207 lb) 05/10/2011 8:45 AM EST Height - - Body Mass Index 31.37 03/08/2011 10:32 AM EST documented in this encounter Progress Notes * Marlo Ko MD - 05/10/2011 10:33 AM EST Reason for Visit: Andree Godoy WallisSheridanTamara returns. History of Present Illness: She is S/P a total thyroidectomy performed on 03/22/11 for what turned out to be a thyroiditis. She is not having any dysphagia or dysphonia. She has no symptoms of increased or decreased T4 and is otherwise feeling well. T4/TSH today: 4.0 / 111 PMH: Current outpatient prescriptions ordered prior to encounter Medication Sig Dispense Refill ??? levothyroxine (SYNTHROID) 125 mcg tablet Take 1 tablet by mouth daily. 30 tablet 2 ??? NORGESTIMATE-ETHINYL ESTRADIOL (ORTHO-CYCLEN, 28, ORAL) ??? DISCONTD: diaZEPam (VALIUM) 5 mg tablet Take 1 tablet by mouth every 8 hours as needed (for neck muscle spasm). 6 tablet 0 ??? DISCONTD: hydroCODone-acetaminophen (VICODIN) 5-500 mg per tablet Take 1-2 tablets by mouth every 6 hours as needed for Pain. 20 tablet 0 ??? DISCONTD: Calcium Carbonate-Vitamin D3 (CALCIUM 500 WITH D) 500 mg(1,250mg) -400 unit Tab Take by mouth. Three times daily as instructed. Over the counter medication. 30 capsule 3 Allergies as of 05/10/2011 - Review Complete 05/10/2011 Allergen Reaction Noted ??? Dilaudid (hydromorphone (bulk)) Hives 03/22/2011 PE: Neck: Wound is healing well with some residual postoperative swelling. Imp: Good postoperative course. Hypothyroid. Plan: Increase levothyroxine to 150 mcg I have advised her that she should continue to see PCP and have her TFT's checked in 6 weeks and then on an annual basis. Return to clinic prn. Send copy to PCP. documented in this encounter Plan of Treatment Upcoming Encounters Date Type Department Care Team (Late st Contact Info) Description 05/23/2024 Hospital [place] [address] Maite Malloy MD [facility] OBSTETRICS [place] [address] documented as of this encounter Procedures Procedure Name Priority Date/Time Associated Diagnosis Comments TSH Routine 05/10/2011 8:03 AM EST Follicular adenoma of thyroid gland T4 TOTAL Routine 05/10/2011 8:03 AM EST Follicular adenoma of thyroid gland documented in this encounter Results * (ABNORMAL) TSH (05/10/2011 8:03 AM EST) TSH 111.10(H) 0.27 - 4.20 mcIU/mL CERNER MILLENNIUM Blood specimen (specimen) 05/10/2011 8:03 AM EST 05/10/2011 8:10 AM EST Marlo Ko MD CHEMISTRY ORDERABL ES Performing Organization Address City/[facility]/ZIP Co de Phone Number CERTalentoday * (ABNORMAL) T4 (05/10/2011 8:03 AM EST) T4, total 4.0(L) 5.1 - 10.8 mcg/dL CERNER MILLENNIUM Comment: Reference Range: Cord Blood: ??6.9-14.4 mcg/dL Females: ??7.2-14.2 mcg/dL Pediatric ranges: ??Interpret with caution-ranges have not been verified Blood specimen (specimen) 05/10/2011 8:03 AM EST 05/10/2011 8:10 AM EST Marlo Ko MD CHEMISTRY ORDERABL ES [facility] documented in this encounter Visit Diagnoses Diagnosis Follicular adenoma of thyroid gland Benign neoplasm of thyroid glands Hypothyroidism, postsurgical Postsurgical hypothyroidism documented in this encounter Care Teams Registered Diet Technician Relationship Specialty Start Date End Date Mya Varghese MD [address] [place] [address] PCP - General 05/10/11 05/07/12 documented as of this encounter
--- OUTSIDE RECORDS SUMMARY | 2023-10-29 04:02 | XMS_ITS | Encounter Summary ---
Author Organization [facility] [place] [address] Care Team Providers Care Starting Gate Driver Name Role Phone None Primary Care Provider Unavailabl e Reason for Visit * Reason Onset Date Comments Results 06/04/2012 Encounter Details Date Type Department Care Team (Late st Contact Info) Description 06/04/[address] [facility] [place] [phone] Omayra Meredith LPN Results Social History Tobacco Use Types Packs/Day Years [...] Telephone Encounter - Omayra Meredith LPN - 06/04/2012 4:04 PM EST Andree Hummel - 11:46 AM ','<More Detail >> Griffin Wallis III, MD Sent: SunJune 04, 2012 3:50 PM To: Omayra Meredith LPN Message Omayra Meredith LPN 06/04/2012 11:51 AM Signed Called patient to clarify Lt4 dose. Per patient she is taking 200 mcg and 50 mcg tablet daily and is not taking Lt4 at same time as vitamin. If Rx is needed Rx to go to [facility] +++++++++++++++++++ Well, let's add 50 mcg each day (to total dose of 300 mcg/day. Sandie, Arie Called patient at which time above message from Dr Wallis was read to her. Patient agrees with planof care and will take two 50 mcg tablets tomorrow (will then be out of 50 mcg tablets) until Rx forLt4 [address] mcg [address] approved [address] Wallis. * Telephone Encounter - Omayra Meredith LPN - 06/04/2012 11:49 AM EST Called patient to clarify Lt4 dose. Per patient she is taking 200 mcg and 50 mcg tablet daily and is not taking Lt4 at same time as vitamin. If Rx is needed Rx to go to [facility] documented in this encounter Plan of Treatment Upcoming Encounters Date Type Department Care Team (Late st Contact Info) Description 05/23/2024 Hospital [place] [address] Maite Malloy MD [facility] OBSTETRICS [place] [address] documented as of this encounter Visit Diagnoses Not on filedocumented in this encounter Care Teams Starting Gate Driver Relationship Specialty Start Date End Date None None PCP - General 05/08/12 04/20/14 documented as of this encounter
--- OUTSIDE RECORDS SUMMARY | 2023-10-29 04:02 | XMS_ITS | Encounter Summary ---
Author Organization [facility] [place] [address] Care Team Providers Care Computer Operations Technician Name Role Phone None Primary Care Provider Unavailabl e Encounter Details Date Type Department Care Team (Late st Contact Info) Description 05/29/2012 External Results Obstetrics [place] [address] Myles Irwin, RN Social History Tobacco Use Types Packs/Day [...] Info) Description 05/23/2024 Hospital [place] [address] Maite Malloy MD [facility] DR OBSTETRICS [place] [address] documented as of this encounter Procedures Procedure Name Priority Date/Time Associated Diagnosis Comments TSH Routine 05/21/2012 INITIAL EXTERNAL RESULTS PANEL Routine 05/06/2012 documented in this encounter Results * (ABNORMAL) TSH (05/21/2012) TSH 2.42(Business Division [facility]) Blood specimen (specimen) 05/21/2012 Griffin Wallis III, MD CHEMISTRY ORDER AMANDA * (ABNORMAL) Initial External Lab Panel (05/06/2012) ABORH Type A+([facility] Division [facility] al [facility]) Ab Screen Interp Positive( EXTERNAL/ ABN) (none) Comment:Anit Estuardo Hemoglobin 12.0 - 16.0 Hematocrit 36.0 - 46.0 MCV 82.0 - 108.0 Platelets Rubella IgG Syphilis IgG (none) HepB Surface Ag (none) HIV 1/2 Ab TSH Hemoglobin A1C Cystic Fibrosis Report U24 Prot Calc Creat Clearance Creatinine AST 13 - 35 ALT 7 - 35 Uric Acid Urine Culture GC Gene Amp Chlamydia Gene Amp Cytopathology Final Report Group B Strep Screen Gluc Baseline Glucose 1 hour Glucose 2 hour Glucose 3 hour Oral Glucose Dose 05/06/2012 Keith GODOYM POINT OF CARE TEST O RDERABLES documented in this encounter Visit Diagnoses Not on filedocumented in this encounter Care Teams Computer Operations Technician Relationship Specialty Start Date End Date None None PCP - General 05/08/12 04/20/14 documented as of this encounter
--- OUTSIDE RECORDS SUMMARY | 2023-10-29 04:02 | XMS_ITS | Encounter Summary ---
Author Organization [facility] [place] [address] Care Team Providers Care Straightener Hand Name Role Phone None Primary Care Provider Unavailabl e Encounter Details Date Type Department Care Team (Latest Contact Info) Description 06/12/2012 9:49 AM EST - 06/12/2012 11:59 PM EST Hospital Encounter Ultrasound at [facility] [place] [phone] , supervision of, high-risk Social History Tobacco Use Types Packs/Day Years [...] Refills Start Date End Date levothyroxine (SYNTHROID) 100 mcg tabletIndications:Hy pothyroidism Take 1 tablet by mouth daily. Take one tablet with 200 mcg levothyroxine to equal 300 mcg daily 90 tablet 3 06/04/2012 06/21/2012 ONDANSETRON HCL (ZOFRAN ORAL) Take by mouth. 04/21/2014 RANITIDINE HCL (ZANTAC ORAL) Take by mouth. 04/21/2014 VITS W-CA,FE,FA,<1MG, ( VITAMIN ORAL) Take by mouth. 04/21/2014 levothyroxine (SYNTHROID) 200 mcg tablet Total dose to equal 250 mcg daily of levothyroxine 30 tablet 12 04/12/2012 06/21/2012 documented as of this encounter Plan of Treatment Upcoming Encounters Date Type Department Care Team (Late st Contact Info) Description 05/23/2024 Hospital Encounter Birthing [facility] [place] [address] Maite Malloy MD [facility] DR OBSTETRICS [place] [address] documented as of this encounter Procedures Procedure Name Priority Date/Time Associated Diagnosis Comments US OB DETAILED MORPHOLOGY Routine 06/12/2012 10:55 AM EST , supervision of, high-risk documented in this encounter Results * US OB Targeted Morphology (06/12/2012 10:55 AM EST) Anatomical Region Laterality Modality Pelvis, Abdomen Ultrasound 06/12/2012 10:5 5 AM EST Narrative 06/12/2012 11:08 AM EST ?OBSTETRICS REPORT ? (Signed Final 06/12/2012 11:07 am) Patient Info ID: ? [id number] ? : ??[birth year] (21 yrs) Name: ? PREETHI Godoy ?Visit Date: 06/12/2012 10:49 am ? LOUISE- ? FRANK Performed By Performed By: ?Itzel Lezama RDMS Attending: ? Mathew LIMA, Lalita Diop Referred By: ? E MELANY BAY MD Service(s) Provided [facility] - Targeted Morphology - Genetics - ? [id number] UOBTV - Viability - Cervical Length - Transvaginal - ??[id number] Indications hypothyroid; possible history of 20 week [...] FL/AC: ? 20.7 ??% ? 20 - 24 Est. FW: ? 299 ?? gm ?? [...] Tract: ?Visualized L Outflow Tract: ?Visualized Cardiac [place]: ? Visualized Diaphragm: ?Visualized Abdomen Ventral Wall: [...] Final 06/12/2012 11:07 am) Patient Info ID: [id number] : [birth year] (21 yrs) Name: PREETHI Godoy Visit Date: 06/12/2012 10:49 am MARIO MARIE Performed By Performed By: Itzel Lezama RDMS Attending: Lalita Carmona MD Referred By: Walt BAY MD Service(s) Provided [facility] - Targeted Morphology - Genetics - [id number] [phone] UOBTV - Viability - Cervical Length - Transvaginal - [id number] Indications hypothyroid; possible history of 20 week [...] Tract: Visualized L Outflow Tract: Visualized Cardiac [place]: Visualized Diaphragm: Visualized Abdomen Ventral Wall: Visualized [...] participate in the care of PREETHI Godoy GILFRANK. Please do not hesitate to call if you have any questions. Lalita Carmona MD Electronically Signed Final Report 06/12/2012 11:07 am E Melany Bay MD IMG US OB ORDERAB LES documented in this encounter Visit Diagnoses Diagnosis , supervision of, high-risk Unspecified high-risk documented in this encounter Care Teams Straightener Hand Relationship Specialty Start Date End Date None None PCP - General 1/23/13 1/5/15 documented as of this encounter
--- OUTSIDE RECORDS SUMMARY | 2023-10-29 04:02 | XMS_ITS | Encounter Summary ---
Author Organization [facility] Address [facility] [place] [address] Care Team Providers Care Senior It Security Analyst Name Role Phone None Primary Care Provider Unavailabl e Encounter Details Date Type Department Care Team (Latest Contact Info) Description 03/29/2011 - 03/29/2011 11:59 PM EST Hospital Encounter [place] [phone] Kedar Santos MD [facility] [place] [address] Discharge Disposition: Home Social History Tobacco Use [...] Sig Dispensed Refills Start Date End Date diaZEPam (VALIUM) 5 mg tablet Take 1 tablet by mouth every 8 hours as needed (for neck muscle spasm). 6 tablet 0 03/23/2011 05/10/2011 hydroCODone-acetaminoph en (VICODIN) 5-500 mg per tablet [...] 02/25/2008 05/22/2012 documented as of this encounter Plan of Treatment Upcoming Encounters Date Type Department Care Team (Late st Contact Info) Description 05/23/2024 Hospital Encounter Birthing Betito [facility] [place] [place] [address] Maite Malloy MD [facility] [address] [place] [address] documented as of this encounter Procedures Procedure Name Priority Date/Time Associated Diagnosis Comments FILM LIBRARY STORAGE ONLY DX SHOULDER Routine 03/29/2011 12:00 AM EST documented in this encounter Results * Film Library- Storage Only DX Shoulder (03/29/2011 12:00 AM EST) Narrative [facility] - 05/17/2017 11:29 AM EST This exam is for storage only and is auto-finalizing. Kedar Santos MD IMG FILM LIBRARY ORD ERABLES [place], [place] documented in this encounter Visit Diagnoses Not on filedocumented in this encounter Care Teams Senior It Security Analyst Relationship Specialty Start Date End Date None None PCP - General 02/23/11 05/09/11 documented as of this encounter
--- OUTSIDE RECORDS SUMMARY | 2023-10-29 04:02 | XMS_ITS | Encounter Summary ---
Author Organization [facility] [place] [address] Care Team Providers Care Bucket Operator Name Role Phone None Primary Care Provider Unavailabl e Encounter Details Date Type Department Care Team (Latest Contact Info) Description 07/04/2012 1:49 PM EDT - 07/04/2012 11:59 PM EDT Hospital Encounter Ultrasound at [facility] [place] [phone] History of loss in prior , currently Social History Tobacco Use Types Packs/Day Years [...] Contact Info) Description 05/23/2024 Hospital Encounter Birthing [facility] [place] [address] Maite Malloy MD [facility] DR OBSTETRICS [place] [address] documented as of this encounter Procedures Procedure Name Priority Date/Time Associated Diagnosis Comments US OB TRANSVAGINAL Routine 07/04/2012 3: 08 PM EDT History of loss in prior , currently documented in this encounter Results * US OB transvaginal (07/04/2012 3:08 PM EDT) Anatomical Region Laterality Modality Pelvis, Abdomen Ultrasound 07/04/2012 3:08 PM EDT Narrative 07/04/2012 3:20 PM EDT ?OBSTETRICS REPORT ? (Signed Final 07/04/2012 03:20 pm) Patient Info ID: ? [id number] ? : ??[birth year] (22 yrs) Name: ? SORCHA E ?Visit Date: 07/04/2012 03:03 pm ? LOUISE- ? FRANK Performed By Performed By: ?Itzel Lezama RDMS Attending: ? Anca LIMA, Phylicia J. Referred By: ? LALITA QUAN MD Service(s) Provided UOBTV - Viability - Cervical Length - Transvaginal - ??[id number] Indications cervical length Evaluation Num Of Fetuses: ?1 Heart Rate: ??147 ?bpm Cardiac Activity: ??Observed, normal rhythm Presentation: ?Cephalic Placenta: ?Anterior Amniotic Fluid UDAY FV: ?Normal -------- Biometry -------- Gestational Age LMP: ? 19w 1d ?Date: ??02/21/12 ? ZAYDA: ?? 11/27/12 Best: ?21w 2d ?? Det. By: ??Early ?ZAYDA: ?? 11/12/12 ? Ultrasound ? (12/18/12) Cervix Uterus Adnexa Cervical Length: ? 3.8 ?cm Cervix: ?No change with fundal pressure Impression 2nd Trimester - Cervical Length - Summary Single intrauterine with a gestational age of 21w 2d based on EARLY ULTRASOUND. Cervical length measures 3.8 cm. No change with fundal pressure. Amniotic fluid volume is Normal. I ??viewed the images and agree with the above interpretation. Thank you for allowing us to participate in the care of PREETHI Godoy MAXINE. Please do not hesitate to call if you have any questions. ?Phylicia March MD Electronically Signed Final Report ?? 07/04/2012 03:20 pm Procedure Note Phylicia March MD - 07/04/2012 OBSTETRICS REPORT (Signed Final 07/04/2012 03:20 pm) Patient Info ID: [id number] : [birth year] (22 yrs) Name: PREETHI Godoy Visit Date: 07/04/2012 03:03 pm MARIO MARIE Performed By Performed By: Itzel Lezama RDMS Attending: Phylicia March MD Referred By: LALITA QUAN MD Service(s) Provided UOBTV - Viability - Cervical Length - Transvaginal - [id number] Indications cervical length Evaluation Num Of Fetuses: 1 Heart Rate: 147 bpm Cardiac Activity: Observed, normal rhythm Presentation: Cephalic Placenta: Anterior Amniotic Fluid UDAY FV: Normal -------- Biometry -------- Gestational Age LMP: 19w 1d Date: 02/21/12 ZAYDA: 11/27/12 Best: 21w 2d Det. By: Early ZAYDA: 11/12/12 Ultrasound (04/02/12) Cervix Uterus Adnexa Cervical Length: 3.8 cm Cervix: No change with fundal pressure Impression 2nd Trimester - Cervical Length - Summary Single intrauterine with a gestational age of 21w 2d based on EARLY ULTRASOUND. Cervical length measures 3.8 cm. No change with fundal pressure. Amniotic fluid volume is Normal. I viewed the images and agree with the above interpretation. Thank you for allowing us to participate in the care of PREETHI Godoy GILELLYN. Please do not hesitate to call if you have any questions. Phylicia March MD Electronically Signed Final Report 07/04/2012 03:20 pm Lalita Quan MD IM US OB ORDERABL ES documented in this encounter Visit Diagnoses Diagnosis History of loss in prior , currently with history of documented in this encounter Care Teams Bucket Operator Relationship Specialty Start Date End Date None None PCP - General 05/08/12 04/20/14 documented as of this encounter
--- OUTSIDE RECORDS SUMMARY | 2023-10-29 04:02 | XMS_ITS | Encounter Summary ---
Author Organization [facility] [place] [address] Care Team Providers Care Vice President Of Consulting Services Name Role Phone None Primary Care Provider Unavailabl e Encounter Details Date Type Department Care Team (Latest Contact Info) Description 07/19/2012 10:35 AM EDT - 07/19/2012 11:59 PM EDT Hospital Encounter Ultrasound at [facility] [place] [phone] Migraine, unspecified, without mention of intractable migraine without mention of status migrainosus; Unspecified high-risk Social History Tobacco Use Types Packs/Day [...] 05/23/2024 Hospital Encounter Birthing [facility] [place] [address] Maite Malloy MD [facility] DR OBSTETRICS [place] [address] documented as of this encounter Procedures Procedure Name Priority Date/Time Associated Diagnosis Comments US OB TRANSVAGINAL Routine 07/19/2012 11 :07 AM EDT Migraine, unspecified, without mention of intractable migraine without mention of status migrainosus Unspecified high-risk documented in this encounter Results * US OB transvaginal (07/19/2012 11:07 AM EDT) Anatomical Region Laterality Modality Pelvis, Abdomen Ultrasound 07/19/2012 11:0 7 AM EDT Narrative 07/19/2012 11:21 AM EDT ? OBSTETRICS REPORT ? (Signed Final 07/19/2012 11:21 am) Patient Info ID: ?[id number] ?: ??[birth year] (22 yrs) Name: ?SORCHA E ? Visit Date: 07/19/2012 11:01 am ?LOUISE- ?FRANK Performed By Performed By: ?Ana Laura Urban Attending: ? Kandis LIMA, Latoya Figueroa Referred By: ? E MELANY BAY MD Service(s) Provided UOBTV - Viability - Cervical Length - Transvaginal - ??[id number] Indications Viability, transvaginal Evaluation Num Of Fetuses: ?1 Heart Rate: ??152 ? bpm Cardiac Activity: ??Observed, normal rhythm Presentation: ?Variable Placenta: ?Anterior -------- Biometry -------- Gestational Age LMP: ? 21w 2d ?Date: ??02/21/12 ? ZAYDA: ?? 11/27/12 Best: ?23w 3d ?? Det. By: ??Early ?ZAYDA: ?? 11/12/12 ? Ultrasound ? (04/02/12) Cervix Uterus Adnexa Cervix: ? Closed, ??Length (cm)= 5.5. ??With fundal pressure ? = 4.1 cm Left Ovary: ?? Not visualized Right Ovary: ??Not visualized Impression 3rd Trimester Summary Single living intrauterine with a gestational age of 23w 3d based on early ultrasound. Transvaginal ultrasound done for cervical length. Cervix is closed and normal in length, no significant interval change with fundal pressure. I ??viewed the images and agree with the above interpretation. Thank you for allowing us to participate in the care of PREETHI Godoy MAXINE. Please do not hesitate to call if you have any questions. ? Latoya Marquis MD Electronically Signed Final Report ?? 07/19/2012 11:21 am Procedure Note Latoya Marquis MD - 07/19/2012 OBSTETRICS REPORT (Signed Final 07/19/2012 11:21 am) Patient Info ID: [id number] : [birth year] (22 yrs) Name: PREETHI Godoy Visit Date: 07/19/2012 11:01 am MARIO MARIE Performed By Performed By: Ana Laura Urban Attending: Latoya Marquis MD Referred By: Walt BAY MD Service(s) Provided UOBTV - Viability - Cervical Length - Transvaginal - [id number] Indications Viability, transvaginal Evaluation Num Of Fetuses: 1 Heart Rate: 152 bpm Cardiac Activity: Observed, normal rhythm Presentation: Variable Placenta: Anterior -------- Biometry -------- Gestational Age LMP: 21w 2d Date: 02/21/12 ZAYDA: 11/27/12 Best: 23w 3d Det. By: Early ZAYDA: 11/12/12 Ultrasound (04/02/12) Cervix Uterus Adnexa Cervix: Closed, Length (cm)= 5.5. With fundal pressure = 4.1 cm Left Ovary: Not visualized Right Ovary: Not visualized Impression 3rd Trimester Summary Single living intrauterine with a gestational age of 23w 3d based on early ultrasound. Transvaginal ultrasound done for cervical length. Cervix is closed and normal in length, no significant interval change with fundal pressure. I viewed the images and agree with the above interpretation. Thank you for allowing us to participate in the care of PREETHI GILELLYN. Please do not hesitate to call if you have any questions. Latoya Marquis MD Electronically Signed Final Report 07/19/2012 11:21 am E Melany Bay MD IMG US OB ORDERAB LES documented in this encounter Visit Diagnoses Diagnosis Migraine, unspecified, without mention of intractable migraine without mention of status migrainosus Unspecified high-risk documented in this encounter Care Teams Vice President Of Consulting Services Relationship Specialty Start Date End Date None None PCP - General 05/08/12 04/20/14 documented as of this encounter
--- OUTSIDE RECORDS SUMMARY | 2023-10-29 04:02 | XMS_ITS | Encounter Summary ---
Author Organization [facility] [place] [address] Care Team Providers Care Door Builder Name Role Phone None Primary Care Provider Unavailabl e Reason for Visit * Reason Onset Date Comments Neck Pain 03/23/2011 Encounter Details Date Type Department Care Team (Late st Contact Info) Description 03/23/2011 Telephone General Surgery at [facility] [place] [phone] Chloé Santa RN Neck Pain Social History Tobacco Use Types Packs/Day Years Used Date Smoking Tobacco: Former Cigarettes Q uit: 03/14/2011 Sex and Gender Information Value Date Recorded Sex Assigned at Female 10/12/2023 9:44 AM EDT Gender Identity Female 10/12/2023 9:44 AM EDT Sexual Orientation Straight 10/12/2023 9: 44 AM EDT documented as of this encounter Miscellaneous Notes * Telephone Encounter - Chloé Santa RN - 03/23/2011 12:56 PM EST I received a call from Andree who reports having neck pain. [facility] Operative Note Patient Name: Andree Hummel : [id number] MR#: [id number] Case Date: 03/22/2011 Surgeon: Surgeon(s) and Role: * JUAN ESPARZA MD - Primary * SATINDER DUNCAN MD - Resident-Surgeon Brodie Preoperative diagnosis: PTC Postoperative diagnosis: PTC Procedure(s): THYROIDECTOMY, FOR MALIGNANCY, LIMITED NECK DISSECTION FACIAL NERVE MONITORING, SETUP She feels the Vicodin is not helpful however she took two tablets at 2330 and again at 0900 today. She has not taken ibuprofen as it upsets her stomach. In talking with her and reviewing her chart she received flexaril and lido derm patches before discharge for her neck pain which she found helpful. I spoke with Dr. Duncan who prescribed Diazepam; he recommends she take ibuprofen as instructed on the bottle and with food; she is to take her vicodin as prescribed and wean to acetaminophen when appropriate. We discussed the Vicodin has acetaminophen and should not be taken with extra acetaminophen. She agrees. She is using heat and ice, and notes no problems with nausea, She is able to eat and drink. We discussed the importance of avoiding constipation she agrees to monitor for this. She willcontinue to self monitor and will stay in touch. She has our contact information. documented in this encounter Plan of Treatment Upcoming Encounters Date Type Department Care Team (Late st Contact Info) Description 05/23/2024 [place] [address] Maite Malloy MD [facility] [place] [address] documented as of this encounter Visit Diagnoses Not on filedocumented in this encounter Care Teams Door Builder Relationship Specialty Start Date End Date None None PCP - General 02/23/11 05/09/11 documented as of this encounter
--- OUTSIDE RECORDS SUMMARY | 2023-10-29 04:02 | XMS_ITS | Encounter Summary ---
Author Organization [facility] Address [facility] [place] [address] Care Team Providers Care Driller And Broacher Name Role Phone Mya Varghese MD Primary Care Provider [phone] Reason for Visit * Reason Comments Advice Only H/O thyroidectomy Encounter Details Date Type Department Care Team (Late st Contact Info) Description 04/25/2012 9:45 AM EST Office Visit Obstetrics [place] [phone] Maite Marks MD [facility] DR OBSTETRICS [place] [address] Thyroiditis (Primary Dx); Hypothyroidism complicating ; Family history of metabolic and nutritional disorder Discharge Disposition: Home Social History Tobacco Use Types Packs/Day Years Used Date Smoking Tobacco: Former Cigarettes Q uit: 03/14/2011 Alcohol Use Standard Drinks/Week Comments No 0 [...] Sign Reading Time Taken Comments Blood Pressure 122/60 04/25/2012 9:53 AM EST Pulse - - Temperature - - Respiratory Rate - - Oxygen Saturation - - Inhaled Oxygen Concentration - - Weight 88.4 kg (194 lb 12.8 oz) 04/25/2012 9:53 AM EST Height 172.7 cm (5' 8) 04/25/2012 9:53 AM EST Body Mass Index 29.62 04/25/2012 9:53 AM EST documented in this encounter Progress Notes * Maite Marks MD - 04/25/2012 11:57 AM EST Maternal Medicine Consult Note Andree Hummel is a 21 y.o. with an ZAYDA of 11/12/12 who is at 11w2d gestation by early ultrasound. She is seen in consultation at the request of Keith Barrett CNM for evaluation of a history of thyroidectomy. She was seen today for maternal- medicine consultation and endocrinology evaluation. The patient had a total thyroidectomy for thyroiditis in 03/2007 which was uncomplicated. She has been on thyroid replacement with a current levothyroxine dose of 250 mcg daily. She reports profound fatigue and nausea. She had a single episode of mild bleeding at 6 weeks'. Recent labs: 04/03/12: T4 7.7 mcg/dl, T3 uptake 28%, TSH 69.52 micro IU/mL, free T4 0.85 ng/dL. Recent increase of her levothyroxine dose to 250 mcg/day. Record Review No additional issues Patient Active Problem List Diagnoses Date Noted ??? 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 Migraine 02/23/2011 ??? Depression 02/23/2011 ??? Thyroid nodule 02/23/2011 Past Medical History Diagnosis Date ??? Migraine 02/23/2011 None in 3-4 years ??? Depression 02/23/2011 ??? Asthma cold, exercise. Used steroids with episodes of bronchitis.. Asymptomatic for a year Intubated once when 19 with bronciolitis ??? Anxiety sees therapist Past Surgical History Procedure Date ??? Thyroidectomy, malig, ltd neck surg 03/22/2011 THYROIDECTOMY, FOR MALIGNANCY, LIMITED NECK DISSECTION performed by JUAN ESPARZA at [facility] MAIN OR ??? Somatosensory test, any/all per. nerves, trunk or head 03/22/2011 FACIAL NERVE MONITORING, SETUP performed by JUAN ESPARZA at [facility] MAIN OR ??? Tonsillectomy ??? [place] tooth extraction ??? Upper gastrointestinal endoscopy for IBS, celiac excluded ??? Colonoscopy found polyps Grav Para Term TAB SAB Ect 3 2 # Outc Date GA 1 2006 7w0d 2 2010 3 CUR Family History Problem Relation Age of Onset ??? Thyroid Disease Father ??? Dyspraxia Brother ??? LCHAD Sister A family history was obtained. She has a brother with dyspraxia. A sister with LCHAD. There is no other history of structural abnormalities, inheritable disease, learning disability, mental retardation, epilepsy, or repetitive loss. The ethnic backgrounds do not suggest a significantly increased genetic risk. Social History Occupational History ??? unemployed Social History Main Topics ??? Smoking status: Former Smoker -- 1.0 packs/day Quit date: 03/14/2011 ??? Smokeless tobacco: Not on file ??? Alcohol Use: No ??? Drug Use: No ??? Sexually Active: Not Currently Current Outpatient Prescriptions Medication Sig Dispense Refill ??? ONDANSETRON HCL (ZOFRAN ORAL) Take by mouth. ??? RANITIDINE HCL (ZANTAC ORAL) Take by mouth. ? ? VITS W-CA,FE,FA,<1MG, ( VITAMIN ORAL) Take by mouth. ??? levothyroxine (SYNTHROID) 50 mcg tablet Levothyroxine total dose to equal 250 mcg. 30 tablet 12 ??? levothyroxine (SYNTHROID) 200 mcg tablet Total dose to equal 250 mcg daily of levothyroxine 30 tablet 12 ??? NORGESTIMATE-ETHINYL ESTRADIOL (ORTHO-CYCLEN, 28, ORAL) Allergies Allergen Reactions ??? Demerol (Meperidine) Anaphylaxis ??? Dilaudid (Hydromorphone (Bulk)) Hives Review of systems: Very fatigued. Persistent nausea, no bleeding. Physical Exam General: alert, well appearing, in no apparent distress HEENT: normocephalic, atraumatic Extremities: normal Neurologic:alert, oriented, normal speech, no focal findings or movement disorder noted Abdomen: abdomen is soft. Uterus not palpable abdominally. heart not heard by Doppler Psychiatric: Affect is appropriate. Assessment and Recommendations: 21 y.o. at 11w2d weeks gestation. Hypothyroidism secondary to thyroidectomy for thyroiditis. Her labs are consistent with inadequate replacement. She had a dose increase shortly after the labs were obtained. Hypothyroidism has an association with miscarriage and low weight but the data about this are inconsistent. There is a smaller chance for maternal thryroid stimulating immunoglobulin with thyroiditis than with Grave's disease. and Grave's disease occurs in approximately 1% of exposed neonates. This is less likely with thyroiditis. I recommend that thyroid stimulating immunoglobulin assay be obtained the next time her blood is drawn and at 32 weeks'. I would like to be notified with the results. A clinical finding of hyperthyroidism is tachycardia and growth restriction. Routine measurement of the heart rate will suffice for surveillance. It is prudent to obtain an ultrasound examination for growth at 32 weeks.' The patient has an appointment with Dr. Wallis to assist with medication management of her hypothyroidism. If her sister does have Long-chain 6-pralpbbtbnu-TcU dehydrogenase (LCHAD) deficiency, the patient has a 2/3 risk of being a carrier for the gene mutation. I asked the patient to find out if her sister has been tested and if those records are available. She will call me. We could test the patient if the mutation is known. Standard screening included LCHAD. According to the patient the father of the baby is not involved with her so it may be difficult to pursue diagnosis if the patient is found to be a carrier. I offered for her to see our genetic counselor the day she comes for her visit with Dr. Wallis. I appreciate the opportunity to be involved in this patient's care, and am available if further questions should arise. Maite Marks MD 04/25/2012 Cc: Keith Barrett CNM This was a 30 minute encounter 25 minutes of which was face to face consultation regarding thyroid disease, inherited disease and options for management. documented in this encounter Miscellaneous Notes * Miscellaneous - Provider, Scanning - 05/13/2012 8:55 AM EST documented in this encounter Plan of Treatment Upcoming Encounters Date Type Department Care Team (Late st Contact Info) Description 05/23/2024 [place] [address] Maite Malloy MD [facility] DR OBSTETRICS [place] [address] documented as of this encounter Visit Diagnoses Diagnosis Thyroiditis- Primary Thyroiditis, unspecified Hypothyroidism complicating Thyroid dysfunction of mother, complicating , childbirth, or the puerperium, unspecified as to episode of care Family history of metabolic and nutritional disorder Family history of other endocrine and metabolic diseases documented in this encounter Care Teams Driller And Broacher Relationship Specialty Start Date End Date Mya Varghese MD [address] [place] [address] [place] [address] PCP - General 05/10/11 05/07/12 documented as of this encounter
--- OUTSIDE RECORDS SUMMARY | 2023-10-29 04:02 | XMS_ITS | Encounter Summary ---
Author Organization [facility] Address [facility] [place] [address] Care Team Providers Care Licensed Guide Name Role Phone None Primary Care Provider Unavailabl e Reason for Visit * Reason Comments Routine Visit Encounter Details Date Type Department Care Team (Latest Contact Info) Description 09/02/2012 9:15 AM EDT Routine Obstetrics [place] [address] Myles Shipman MD [facility] DR OBSTETRICS & [place] [address] GA: 29w6d Discharge Disposition: Home Social History Tobacco Use [...] Sign Reading Time Taken Comments Blood Pressure 110/64 09/02/2012 9:24 AM EDT Simultaneous filing. User may not have seen previous data. Pulse - - Temperature - - Respiratory Rate - - Oxygen Saturation - - Inhaled Oxygen Concentration - - Weight 94.3 kg (207 lb 12.8 oz) 09/02/2012 9:24 AM EDT Height - - Body Mass Index 31.6 09/02/2012 8:04 AM EDT documented in this encounter Progress Notes * Myles Shipman MD - 09/02/2012 9:38 AM EDT Saw psychiatry today, found it helpful. She is considering zoloft after delivery. She has another appointment in mid-november if she starts the zoloft. She has taken medication in the past and they were not helpful. She is still not sleeping, she has not tried a sleeping aid. Rx given for ambien, ok to take up to 2 nights per week. She is still having headaches. New Rx for fiorcet taken and patientinstructed not to take it more than 2 days in a week. Discussed safety of zoloft and breast feeding. documented in this encounter Miscellaneous Notes * Addendum Note - Melany Gabriel - 09/02/2012 9:56 AM EDTAddended by: MELANY GABRIEL on: 09/02/2012 09:56 AM Modules accepted: Orders documented in this encounter Plan of Treatment Upcoming Encounters Date Type Department Care Team (Late st Contact Info) Description 05/23/2024 Hospital [place] [address] Maite Malloy MD [facility] DR OBSTETRICS [place] [address] documented as of this encounter Procedures Procedure Name Priority Date/Time Associated Diagnosis Comments TSH Routine 09/02/2012 10:04 AM EDT Hypothyroidism, postsurgical documented in this encounter Results * (ABNORMAL) TSH (09/02/2012 10:04 AM EDT) TSH 34.90(H) 0.27 - 4.20 mcIU/mL [facility] Blood specimen (specimen) 09/02/2012 10:04 AM EDT 09/02/2012 10:13 AM EDT Narrative Resulting Agency Comment Spec In Lab Myles Shipman MD CHEMISTRY ORDERABLES [facility] documented in this encounter Visit Diagnoses Diagnosis , supervision of, high-risk- Primary Unspecified high-risk Hypothyroidism, postsurgical Postsurgical hypothyroidism Migraine Migraine, unspecified, without mention of intractable migraine without mention of status migrainosus documented in this encounter Care Teams Licensed Guide Relationship Specialty Start Date End Date None None PCP - General 05/08/12 04/20/14 documented as of this encounter
--- OUTSIDE RECORDS SUMMARY | 2023-10-29 04:02 | XMS_ITS | Encounter Summary ---
Author Organization [facility] [place] [address] Care Team Providers Care Chair Trimmer Name Role Phone None Primary Care Provider Unavailabl e Reason for Visit * Reason Comments Routine Visit Encounter Details Date Type Department Care Team (Latest Contact Info) Description 06/21/2012 1:00 PM EST Routine Obstetrics [place] [address] Maite Marks MD [facility] DR OBSTETRICS & [place] [address] GA: 19w3d Discharge Disposition: Home Social History Tobacco Use [...] Reading Time Taken Comments Blood Pressure 112/64 06/21/2012 1:12 PM EST Pulse - - Temperature - - Respiratory Rate - - Oxygen Saturation - - Inhaled Oxygen Concentration - - Weight - - Height - - Body Mass Index - - documented in this encounter Progress Notes * Maite Marks MD - 06/21/2012 4:22 PM EST Add on visit for c/o LLQ pain. Exacerbated by movement, twisting. No alleviating factor. No ctx, leak or bleed. No dysuria, fever or chills. Normal bowel movements Exam: Appears well Mild Left CVAT and LLQ tenderness. Discomfort with moving uterus Urine dip negative Impression prob musculoskeletal. round ligament Doubt nephrolithiasis but will send urine for microscopy Plan: keep regular appt Call prn. documented in this encounter Plan of Treatment Upcoming Encounters Date Type Department Care Team (Late st Contact Info) Description 05/23/2024 [facility] [address] Maite Malloy MD [facility] DR OBSTETRICS [place] [address] documented as of this encounter Procedures Procedure Name Priority Date/Time Associated Diagnosis Comments URINALYSIS WITH REFLEX CULTURE Routine 06/21/2012 2:00 PM EST High-risk supervision documented in this encounter Results * Urinalysis with microscopic (06/21/2012 2:00 PM EST) Glucose UA Negative Negative mg/dL [facility] Protein UA Negative [facility] Bilirubin UA Negative Negative mg/dL [facility] Urobilinogen UA Normal [facility] ER [facility] pH UA 7.0 5.0 - 8.0 [facility] Blood UA Negative [facility] Ketones UA Negative [facility] Nitrite UA Negative [facility] Leukocytes UA Negative [facility]ILL[facility] Appearance UA Clear Clear [facility] Spec [place] UA 1.010 1.002 - 1.030 [facility]ILLEN[facility] Color UA Yellow Yellow [facility] RBC UA Not Present 0 - 4 [facility] WBC UA 1 0 - 5 /HPF [facility] Bacteria UA Moderate [facility]ILL[facility] Squam Epith UA 4 <=4 /HPF [facility]ERNE R MILLENNI[facility] Trans Epith UA 1 <=1 /HPF [facility] Urine specimen (specimen) URINE SPECIMEN OBTAINED BY CLEAN CATCH PROCEDURE / Unknown 06/21/2012 2:00 PM EST 06/21/2012 2:00 PM EST Narrative Resulting Agency Comment Spec In Lab Maite Marks MD URINE ORDERABLES Performing Organization Address City/State/ZIP Co nm Phone Number [facility] documented in this encounter Visit Diagnoses Diagnosis High-risk supervision- Primary Unspecified high-risk documented in this encounter Care Teams Chair Trimmer Relationship Specialty Start Date End Date None None PCP - General 05/08/12 04/20/14 documented as of this encounter
--- OUTSIDE RECORDS SUMMARY | 2023-10-29 04:02 | XMS_ITS | Encounter Summary ---
Author Organization [facility] Address [facility] [place] [address] Care Team Providers Care Fitness Centre Manager Name Role Phone None Primary Care Provider Unavailabl e Encounter Details Date Type Department Care Team (Latest Contact Info) Description 05/08/2012 10:30 AM EST Office [place] [address] Griffin Wallis III, MD [facility] [place] [address] Hypothyroidism (Primary Dx) Discharge Disposition: Home Social History Tobacco Use [...] Sign Reading Time Taken Comments Blood Pressure 119/73 05/08/2012 10:50 AM EST Pulse 83 05/08/2012 10:50 AM EST Temperature - - Respiratory Rate - - Oxygen Saturation - - Inhaled Oxygen Concentration - - Weight 89.6 kg (197 lb 9.6 oz) 05/08/2012 10:50 AM EST Height - - Body Mass Index 30.04 04/25/2012 9:53 AM EST documented in this encounter Progress Notes * Griffin Wallis III, MD - 05/08/2012 11:31 AM EST I saw Andree WallisVishalTamara in the Endocrinology clinic for evaluation of her thyroid status in the setting of . 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 She had a TSH level oneweek ago of 1.35 with (-) TSI (done at [facility]). She has no symptoms of hypothyroidism now. She deniednoncompliance. Complete review of systems is otherwise + for 13 weeks that has been otherwise uncomplictaed. Of note, she routinely takes a vitamin along with her T4. Also, there is a longstanding history of iron deficiency with intermittent supplementation. She denied tetany/cramps. Past history is + for ovarian cysts, depression, and T & A. Family history is + for thyroid disease (sister). Social history showed that she quit smoking 6 weeks ago and is unemployed at this time. On examination she was a pleasant woman who appeared well with HR 82 regular. There was no tremor or lid lag, and the reflexes were normal. Her tongue was normally papillated. She had no rash or edema, and no thyroid tissue was palpable. There was no adenopathy. Her lungs were clear, her skin showed normal pigment and texture, and there was no heart murmur. Chvostek???s sign was + at the mouth and (-) at the eye. In summary, she has postsurgical primary hypothyroidism without hypoparathyroidism. The control of her thyroid staus has been erratic, and she states that this is not caused by noncompliance. It thusappears likely that this is due to variable GI absorbtion of LT4 due to the coingestion of positively charged metal ions, especially iron. We discussed this is detail, as well as the need to maintainthe TSH < 2.5, and the likelihood of increased T4 turnover during the second and third trimsters, prompting an increased dose requirement. This, in concert with the anticipated improved absorbtionafter spacing out the T4 and iron ingestion render it impossible to predict her dose. Thus, I will put in a standing order for monthly TSH levels at [facility], with results to be FAXed to me at [phone]. Lastly, she wanted mt to be sure that Dr. Maite Marks is aware that the local Ceramic Design Engineer requeststhat her care be transferred to Dr. Marks. More than 32 of this 60 minute visit was spent in face to face counseling and discussing the implications of the diagnosis and potential therapeutic approaches as detailed above. documented in this encounter Plan of Treatment Upcoming Encounters Date Type Department Care Team (Late st Contact Info) Description 05/23/2024 [place] [address] Maite Malloy MD [facility] OBSTETRICS [place] [address] documented as of this encounter Visit Diagnoses Diagnosis Hypothyroidism- Primary Unspecified hypothyroidism documented in this encounter Care Teams Fitness Centre Manager Relationship Specialty Start Date End Date None None PCP - General 05/08/12 04/20/14 documented as of this encounter
--- OUTSIDE RECORDS SUMMARY | 2023-10-29 04:02 | XMS_ITS | Encounter Summary ---
Author Organization [facility] [place] [address] Care Team Providers Care Turbine Attendant Name Role Phone None Primary Care Provider Unavailabl e Encounter Details Date Type Department Care Team (Late st Contact Info) Description 06/12/2012 10:45 AM EST Routine Obstetrics [place] [address] CLINIC, Lalita Bond MD [facility] OBSTETRICS [place] [address] GA: 18w1d Discharge Disposition: Home Social History Tobacco Use [...] Sign Reading Time Taken Comments Blood Pressure 124/60 06/12/2012 9:56 AM EST Pulse - - Temperature - - Respiratory Rate - - Oxygen Saturation - - Inhaled Oxygen Concentration - - Weight 90.7 kg (200 lb) 06/12/2012 9:56 AM EST Height - - Body Mass Index 30.41 05/22/2012 9:21 AM EST documented in this encounter Progress Notes * Lalita Quan MD - 06/12/2012 11:21 AM EST Doing well. Some cramping. No LOF, no bleeding. US today normal morphology. TVCL 3.2cm. Declined aneuploidy screen. Recommend early GCT when she can tolerate. Taking Zofran. HAs social work visit this week. On thyroid replacement 300mcg QD, increased by Dr. Wallis. F/u cervical length in 3-4 weeks. documented in this encounter Plan of Treatment Upcoming Encounters Date Type Department Care Team (Late st Contact Info) Description 05/23/2024 Hospital [place] [address] Maite Malloy MD [facility] OBSTETRICS [place] [address] documented as of this encounter Results * US OB transvaginal (07/04/2012 3:08 PM EDT) Anatomical Region Laterality Modality Pelvis, Abdomen Ultrasound 07/04/2012 3:08 PM EDT Narrative 07/04/2012 3:20 PM EDT ?OBSTETRICS REPORT ? (Signed Final 07/04/2012 03:20 pm) Patient Info ID: ? [id number] ? : ??[birth year] (22 yrs) Name: ? PREETHI E ?Visit Date: 07/04/2012 03:03 pm ? LOUISE- ? FRANK Performed By Performed By: ?Itzel Lezama RDMS Attending: ? Anca LIMA, Phylicia J. Referred By: ? LALITA QUAN MD Service(s) Provided UOBTV - Viability - Cervical Length - Transvaginal - ??[id number] Indications cervical length Evaluation Num Of Fetuses: ?1 Heart Rate: ??147 ?bpm Cardiac Activity: ??Observed, normal rhythm Presentation: ?Cephalic Placenta: ?Anterior Amniotic Fluid UDAY FV: ?Normal -------- Biometry -------- Gestational Age LMP: ? 19w 1d ?Date: ??02/21/12 ? ZAYDA: ?? 11/27/12 Best: ?21w 2d ?? Det. By: ??Early ?ZAYDA: ?? 11/12/12 ? Ultrasound ? (04/02/12) Cervix Uterus Adnexa Cervical Length: ? 3.8 [...] participate in the care of PREETHI Godoy MXAINE. Please do not hesitate to call if you have any questions. ?Phylicia March MD Electronically Signed Final Report ?? 07/04/2012 03:20 pm Procedure Note Phylicia March MD - 07/04/2012 OBSTETRICS REPORT (Signed Final 07/04/2012 03:20 pm) Patient Info ID: [id number] : [birth year] (22 yrs) Name: PREETHI Godoy Visit Date: 07/04/2012 03:03 pm MARIO MARIE Performed By Performed By: Itzel Lezama RDMS Attending: Phylicia March MD. Referred By: LALITA QUAN MD Service(s) Provided UOBTV - Viability - Cervical Length - Transvaginal - [id number] Indications cervical length Evaluation Num Of Fetuses: [...] Report 07/04/2012 03:20 pm Lalita Quan MD IMG US OB ORDERABL ES documented in this encounter Visit Diagnoses Diagnosis History of loss in prior , currently - Primary with history of History of loss in prior , currently with history of documented in this encounter Care Teams Turbine Attendant Relationship Specialty Start Date End Date None None PCP - General 05/08/12 04/20/14 documented as of this encounter
--- OUTSIDE RECORDS SUMMARY | 2023-10-29 04:03 | XMS_ITS | Clinical Summary ---
Author Organization [facility] Address [address] [place] [address] Care Team Providers Care Handle Bar Assembler Name Role Phone None, Provider Primary Care Provider Tatum Marcelino MD Unavailable [phone] Allergies Active Allergy Reactions Criticality Noted Date Comments Meperidine 09/08/2013 Medications Medication Sig Dispensed Refills Start Date End Date Status levothyroxine (SYNTHROID) 150 mcg tablet Take 175 mcg by mouth daily. Active Social History Tobacco Use Types Packs/Day Years Used Date Smoking Tobacco: Every Day Cigarettes Sex and Gender Information Value Date Recorded Sex Assigned at Not on file Gender Identity Not on file Sexual Orientation Not on file Obstetrics History Last Filed Vital Signs Vital Sign Reading Time Taken Comments Blood Pressure 118/61 09/08/20131950 EDT Pulse 99 09/08/20131950 EDT Temperature 36.6 ??C (97.9 ??F) 09/08/20131950 EDT Respiratory Rate 18 09/08/20131950 EDT Oxygen Saturation 99% 09/08/20131950 EDT Inhaled Oxygen Concentration - - Weight - - Height - - Body Mass Index - - Plan of Treatment Health Maintenance Due Date Last Done Comments Hepatitis C Screen 1990 Social Determinants Of Healt h (SDOH) 1991 Depression Screening 2003 HIV Screening 2007 Advance Directive 06/15/2009 Preventive Care Visit 06/15/2009 Hepatitis B Vaccine (1 of 3 - 19+ 3-dose series) 06/15/2010 Pertussis (Adult) Immunization 06/15/2010 Tetanus (Adult) Immunization 06/15/2010 Pap Smear (Cervical Cancer Screening) 05/21/2020 05/21/2017, 09/17/2014, 10/31/2012 Cervical Cancer Screening 06/15/2021 HPV/Cotest (Cervical Cancer Screening) 06/15/2021 COVID-19 Vaccine (2022-2 4 season) 2022 Influenza Immunization (Adult) (#1) 2024 HPV Vaccines Aged Out No longer eligi ble based on patient's age to complete this topic Procedures Procedure Name Priority Date/Time Associated Diagnosis Comments PAP TEST- RESULT ONLY Routine 05/21/2017 0:00 EST from Last 3 Months or Most Recently Relevant to Health Maintenance Results * PAP TEST- RESULT ONLY (05/21/2017 0:00 EST) Pathology Report: CYTOPATHOLOGY REPORT Reports generated via electronic interface contain original data; however they are lacking the format of the original report. Caution should be taken when reading/interpreti ng unformatted reports. Name: ? ANDREE ROJAS ? Accession #: ? [id number] : ? 1990 (Age: 26) ??F ?Collect Date: ? 05/21/2017 Location: ? [facility] ? Receive Date: ? 05/23/2017 Provider: ?RUSSELL VIVEROS [facility]- Copy to: ? Specimen/Source: ?Pap Test, Cervix, ThinPrep Imaging System with manual evaluation Last Menstrual Period: ? SPECIMEN ADEQUACY ? Satisfactory for Evaluation - transformation zone component present GENERAL CATEGORIZATION ? Negative for Intraepithelial Lesion or Malignancy INTERPRETATION ? Shift in ike present suggestive of bacterial vaginosis. ? Document reviewed and electronically signed by: ? MAUDE Monique(ASCP) ? Report Date: ??05/29/2017 10:03 End of Report [facility] 05/21/2017 05/23/2017 Russell Warner INSPECTOR AIDE-BC PATHOLOGY ORDERA ARIANNA [facility] [address] [place] [address] from Last 3 Months or Most Recently Relevant to Health Maintenance Care Teams Handle Bar Assembler Relationship Specialty Start Date End Date None, Provider PCP - General 09/08/13 Tatum Lugo MD [address] [place] [phone] 09/08/13
--- OUTSIDE RECORDS SUMMARY | 2023-10-29 04:03 | XMS_ITS | Encounter Summary ---
Author Organization [facility] Address [address] [place] [address] Care Team Providers Care Salvage Inspector Name Role Phone Tatum Lugo MD Primary Care Provider [phone] Encounter Details Date Type Department Care Team (Late st Contact Info) Description 04/29/2007 Results Only [facility] - [address] [phone] Harsha Kingston MD [address] [place] [phone] Social History Tobacco Use Types Packs/Day Years Used Date Smoking Tobacco: Never Assessed Sex and Gender Information Value Date Recorded Sex Assigned at Not on file Gender Identity Not on file Sexual Orientation Not on file documented as of this encounter Plan of Treatment Not on file documented as of this encounter Procedures Procedure Name Priority Date/Time Associated Diagnosis Comments TISSUE TRANSGLUTAMINASE ANTIBODY, IGA Routine 04/29/2007 10:23 EST IGA Routine 04/29/2007 10:23 EST SED RATE Routine 04/29/2007 10:23 EST COMPLETE BLOOD COUNT AND DIFFERENTIAL Routine 04/29/2007 10:23 EST TSH Routine 04/29/2007 10:23 EST T4 FREE Routine 04/29/2007 10:23 EST HEMOGLOBIN A1C Routine 04/29/2007 10:23 EST COMPREHENSIVE METABOLIC PANEL (CMP) Routine 04/29/2007 10:23 EST documented in this encounter Results * TTG AB, IGA, S REFLEX ORDER ONLY (04/29/2007 10:23 EST) Tissue Transglutaminase Ab, IGA 6.3Reference range: <20.0 Unit: U Performed or Referred by: [facility] D[facility] of Lab Med and Path, [address] , [place] [address], Lab Dir: MD ROCAEL Hernandez III LAB 04/29/2007 10:2 3 EST 04/29/2007 10:25 EST Harsha Kingston MD IMMUNOLOGY AN D SEROLOGY ORDERABLES Performing Organization Address [facility] de Phone Number [facility] [address] [place] [address] * TSH (04/29/2007 10:23 EST) TSH 1.97 0.35 - 5.00 uIU/mL [facility] 04/29/2007 10:2 3 EST 04/29/2007 10:25 EST Harsha Kingston MD CHEMISTRY & B LOOD GAS ORDERABLES Performing Organization Address [facility] de Phone Number [facility] [address] [place] [address] * (ABNORMAL) SED. RATE:WESTERGREN (04/29/2007 10:23 EST) Sed. Rate Enriqueren 34(H) 0 - 20 mm/hr [facility] 04/29/2007 10:2 3 EST 04/29/2007 10:25 EST Harsha Kingston MD HEMATOLOGY & PF4 ORDERABLES Performing Organization Address [facility] Co de Phone Number [facility] [address] [place] [address] * IGA (04/29/2007 10:23 EST) IgA 66 45 - 237 mg/dl [facility] 04/29/2007 10:2 3 EST 04/29/2007 10:25 EST Harsha Kingston MD CHEMISTRY & B LOOD GAS ORDERABLES Performing Organization Address [facility] de Phone Number [facility] [address] [place] [address] * T4 FREE (04/29/2007 10:23 EST) Free T4 1.2 0.8 - 1.5 ng/dL [facility] 04/29/2007 10:2 3 EST 04/29/2007 10:25 EST Harsha Kingston MD CHEMISTRY & B LOOD GAS ORDERABLES Performing Organization Address [facility] Phone Number [facility] [address] [place] [address] * (ABNORMAL) COMPREHENSIVE METABOLIC PANEL (04/29/2007 10:23 EST) Potassium 4.9 3.6 - 5.2 mEq/L [facility] Sodium 139 136 - 145 mEq/L [facility] Chloride 106 96 - 110 mEq/L [facility] CO2 27 24 - 32 mEq/L [facility] Total Alkaline Phosphatase 99 70 - 230 U/L [facility] Bilirubin, Total <0.5 0.0 - 1.4 mg/dl [facility] AST 17 16 - 38 U/L [facility] ALT 23 5 - 30 U/L [facility] Albumin 4.1 3.0 - 5.5 g/dl [facility] Total Protein 7.4 6.3 - 8.6 g/dl [facility] Creatinine 0.70 0.6 - 1.2 mg/dl [facility] GFR, Calculated Age <18 ml/min/1.7 3m2 [facility] BUN 6(L) 8 - 21 mg/dl [facility] Calcium 9.5 8.5 - 10.5 mg/dl [facility] Calculated Calcium 9.8 8.5 - 10.5 mg/dl [facility] Glucose, Serum 84 70 - 100 mg/dl [facility] Fasting? No [facility] 04/29/2007 10:2 3 EST 04/29/2007 10:25 EST Harsha Kingston MD CHEMISTRY & B LOOD GAS ORDERABLES [facility] [address] [place] [address] * (ABNORMAL) HEMAGRAM AND DIFFERENTIAL (04/29/2007 10:23 EST) WBC 7.89 4.5 - 13.0 K/cmm [facility] RBC 4.05(L) 4.10 - 5.10 M/cmm [facility] Hemoglobin 12.8 12.0 - 16.0 gm/dl [facility] HCT 38.0 36.0 - 46.0 % [facility] MCV 94 78 - 102 fl [facility] MCH 31.7 pg [facility] MCHC 33.8 gm/dl [facility] PLT 257 156 - 312 K/cmm [facility] RDW-CV 13.1 % [facility] % Neutrophils 78.3 % [facility] % Lymphocytes 12.8 % [facility] % Monocytes 6.5 % [facility] % Eosinophils 2.2 % [facility] % Basophils 0.2 % [facility] ABS Neutrophils 6.18 K/cmm [facility] ABS Lymphs 1.01 K/cmm [facility] ABS Monocytes 0.51 K/cmm [facility] ABS Eosinophils 0.17 K/cmm [facility] ABS Basophils 0.01 K/cmm [facility] Type of Diff: Automated [facility] 04/29/2007 10:2 3 EST 04/29/2007 10:25 EST Harsha Kingston MD PACKAGES & DN A PROBE ORDERABLES Performing Organization Address City/[facility] Co de Phone Number [facility] [address] [place] [address] * HEMOGLOBIN A1C (04/29/2007 10:23 EST) Hemoglobin A1C 5.0 % [facility] Comment: Shortened red blood cell survival will decrease Hemoglobin A1C values. Reference Range: <6% Normal Range <7% Recommended goal by ADA guidelines 7-8% Suboptimal by ADA guidelines >8% Further action suggested by ADA guidelines 04/29/2007 10:2 3 EST 04/29/2007 10:25 EST Harsha Kingston MD CHEMISTRY & B LOOD GAS ORDERABLES Performing Organization Address [facility] Co de Phone Number [facility] [address] [place] [address] documented in this encounter Visit Diagnoses Not on filedocumented in this encounter Care Teams Salvage Inspector Relationship Specialty Start Date End Date Tatum Lugo MD [address] [place] [phone] PCP - General 08/06/08 11/13/10 documented as of this encounter
--- OUTSIDE RECORDS SUMMARY | 2023-10-29 04:03 | XMS_ITS | Encounter Summary ---
Author Organization [facility] [place] [address] Care Team Providers Care Drum Attendant Name Role Phone None Primary Care Provider Unavailabl e Encounter Details Date Type Department Care Team (Latest Contact Info) Description 03/22/2011 12:09 PM EST - 03/22/2011 7:14 PM EST Hospital En[place] [address] Juan Ko MD [facility] [place] [address] Discharge Disposition: Home Social History Tobacco Use [...] Sign Reading Time Taken Comments Blood Pressure 131/76 03/22/2011 5:27 PM EST Pulse 60 03/22/2011 5:45 PM EST Temperature 36.7 ??C (98.1 ??F) 03/22/2011 5:18 PM ES T Respiratory Rate 20 03/22/2011 6:00 PM EST Oxygen Saturation 96% 03/22/2011 6:00 PM EST Inhaled Oxygen Concentration - - [...] calcium supplementation (tums) Phone number for questions: [phone] before 5 PM weekdays [phone] after 5 PM and on weekends/holidays documented [...] 12:03 PM EST Reason for Visit: Andree Hummel is a 20 y.o. female who is [...] satisfactory. ---Cytopathologic Diagnosis--- Atypical 02/24/11 Screened by: Chip Rescreened by: CECY SANTOS 03/01/11 Verified by: [...] reviewed at the intradepartmental multihead conference with Drs Juan Ramon [place] and Lori. ---Clinical Information--- Specimen Source: Thyroid, left lower pole (US-guided FNA) She has a family history of thyroid disease with a younger sister who is hypothyroid and 4 paternalrelative who underwent thyroidectomy. She has no history of head or neck irradiation. She has no dysphagia or dysphonia. This has not been felt on physical exam. ROS: No H/O asthma, IL, stroke, pulmonary embolus or phlebitis. Comprehensive review [...] agrees to proceed. Will sign in through [facility]. Consent is signed. Send copy to Dr. Villalba. documented in this encounter Miscellaneous Notes * Miscellaneous - Provider, Scanning - 03/22/2011 9:20 PM EST * Op Note - Satinder Duncan MD - 03/22/2011 5:12 PM EST [facility] Patient Name: Andree Hummel : [id number] MR#: [id number] Case Date: 03/22/2011 Surgeon: Surgeon(s) and Role: [...] the thyroid gland were obtained using a SonSocialmothaxx and an HFL38/13-6 broadband linear array transducer. [...] Operative Note Patient Name: Andree Hummel : [id number] MR#: [id number] Case Date: 03/22/2011 Surgeon: Surgeon(s) and Role: [...] Info) Description 05/23/2024 Hospital Encounter Birthing [facility] [address] Maite Malloy MD [facility] OBSTETRICS [place] [address] documented as of this encounter Procedures Procedure [...] 5:13 PM EST) Surgical Pathology Report [id number] ? Location: [facility] The signing pathologist has (i) examined the [...] superior to inferior including enlarged parathyroid; (41-44) players club representative sections of isthmus; (45-50) serial sections [...] Ko MD PATHOLOGY/CYTOLOGY ORDERABLES Performing Organization Address City/[facility] Co de Phone Number [employer] * Specimen to Pathology (surgical or derm) (03/22/2011 4:33 PM EST) AP Specimen 03/22/2011 4:33 PM EST 03/22/2011 4:33 PM EST Narrative HANNAH MILLBRINAIUM - 03/22/2011 4:33 PM EST Specimen requisition ordered. ??Separate Pathology report to follow Luis Hester MD PATHOLOGY/CYTOLOGY ORDERABLES Performing Organization Address City/State/[facility] Co de Phone Number [employer] documented in this encounter Visit Diagnoses Not on filedocumented in this encounter Administered Medications Inactive Administered Medications - up to 3 most recent administrations Medication Order MAR Action Action Date Dose Rate Site cyclobenzaprine (FLEXERIL) tablet 5 mg 5 mg, Oral, ONCE, 1 dose, On Sun03/22/11 at 1900, STAT Given 03/22/2011 6:54 PM EST 5 mg fentaNYL 50mcg/mL injection 25-50 mcg, Intravenous, EVERY 5 MIN PRN, Starting on Sun03/22/11 at 1714, Until Sun03/22/11 at 2138, Pain, for breakthrough pain, Hold for respiratory [...] 2138, Day of Surgery (Day of Procedure) New [...] STAT 1854 (Given - Provid er: Bhumika Hurtado RN) lidocaine (LIDODERM) 5 %(700 mg/patch) patch 1 [...] on Sun03/22/11 at 1345, Until Sun03/22/11 at 2138, Day of Surgery (Day of Procedure) 1345 [...] on Sun03/22/11 at 1635, Until Sun03/22/11 at 2138, Intra-Operative (Intra-Procedure), Routine 1635 (Given - Provid er: Juan Ko MD) fentaNYL 50mcg/mL injection (CANCELED) 25-50 mcg, Intravenous, EVERY 5 MIN PRN, Starting on Sun03/22/11 at 1714, Until Sun03/22/11 at 2138, Pain, for breakthrough pain, Hold for respiratory rate less than 10 per minute. Maximum dose: 250 mcg over one hour., PACU Recovery, Routine 1718 (Given - Provid er: Bhumika Hurtado RN)1727 (Given - Provider: Bhumika Hurtado RN)1745 (Given - Provider: Bhumika Hurtado RN) hydroCODone-acetaminophen (VICODIN) 5-500 mg per tablet 1-2 tablet 1-2 tablet, Oral, EVERY 6 HOURS PRN, Starting on Sun03/22/11 at 1714, Until Sun03/22/11 at 2138, Pain, Maximum dose of acetaminophen is 4000 mg from all sources in 24 hours., Routine 1748 (Given - Provid er: Bhumkia Hurtado RN) promethazine (PHENERGAN) injection 6.25 mg (COMPLETED) 6.25 mg, Intravenous, ONCE PRN, Nausea, Starting on Sun03/22/11 at 1714, 1 dose, Until Sun03/22/11 at 1723, Dilute in 20 mL sodium chloride 0.9% and administer through a free flowing IV. Usual dose range 0.25-0.5 mg/kg/dose to a maximum of 25 mg/dose, PACU Recovery 1723 (Given - Provid er: Bhumika Hurtado RN) Linked Groups Order Group 1: lidocaine (LIDODERM) 5 %(700 mg/patch) patch 1 patch (COMPLETED)Jump to med 1 patch, Transdermal, ONCE, 1 dose, On Sun03/22/11 at 1900, Apply patch(es) for 12 hours, and then remove for 12 hours, STAT And lidocaine (LIDODERM) patch REMOVAL (CANCELED) Transdermal, NIGHTLY, First dose on Sun03/22/11 at 2100, Until Discontinued, Remove Lidocaine Patch documented in this encounter Care Teams Drum Attendant Relationship Specialty Start Date End Date None None PCP - General 02/23/11 05/09/11 documented as of this encounter
--- OUTSIDE RECORDS SUMMARY | 2023-10-29 04:03 | XMS_ITS | Encounter Summary ---
Author Organization [facility] Address [facility] [place] [address] Care Team Providers Care Line Construction Superintendent Name Role Phone None Primary Care Provider Unavailabl e Reason for Referral * Surgical (Routine) - Closed Specialty Diagnoses / Procedures Referred By Lamont riggins Referred To Contact General Surgery Diagnoses Thyroid nodule Jona Dickinson MD [address] [place] [address] Marlo Ko MD [facility] [place] [address] Referral ID Status Reason Start Date Expiration Date V isits Requested Visits Authorized [id number] Closed Specialty Service Requested 03/03/2011 08/30/2011 1 1 Reason for Visit * Reason Onset Date Comments Other 03/03/2011 ? when surgery i s scheduled Encounter Details Date Type Department Care Team (Late st Contact Info) Description 03/03/2011 [place] [address] Jona Dickinson MD [address] [place] [phone] Other (? when surgery is scheduled) Social History Tobacco Use Types Packs/Day Years Used Date Smoking Tobacco: Never Sex and Gender Information Value Date Recorded Sex Assigned at Female 10/12/2023 9:44 AM EDT Gender Identity Female 10/12/2023 9:44 AM EDT Sexual Orientation Straight 10/12/2023 9: 44 AM EDT documented as of this encounter Miscellaneous Notes * Telephone Encounter - Geovanna Paredes V, RN - 03/03/2011 3:03 PM EST TC from Carmina Mckeon (pt's mother) - ? Date of surgery. Per note of 03/02/2011 telephone call, pt should have a thyroidectomy. Pt's mother calling to ask what date pt's surgery is scheduled for. As of this time, no date has been scheduled. Pt will need cirilo seen for a surgical consult before the surgery is scheduled. Question of Surgical referral communicated to Dr Dickinson'kvng In Basket. documented in this encounter Plan of Treatment Upcoming Encounters Date Type Department Care Team (Late st Contact Info) Description 05/23/2024 Hospital [place] [address] Maite Malloy MD [facility] OBSTETRICS [place] [address] Scheduled Referrals Name Type Priority Associated Diagnoses Orde r Schedule REFERRAL TO GENERAL SURGERY Outpatient Referral Routine Thyroid nodule Ordered: 03/03/2011 documented as of this encounter Visit Diagnoses Diagnosis Thyroid nodule- Primary Nontoxic uninodular goiter documented in this encounter Care Teams Line Construction Superintendent Relationship Specialty Start Date End Date None None PCP - General 02/23/11 05/09/11 documented as of this encounter
--- OUTSIDE RECORDS SUMMARY | 2023-10-29 04:03 | XMS_ITS | Encounter Summary ---
Author Organization [facility] Address [address] [place] [address] Care Team Providers Care Inorganic Chemical Technician Name Role Phone None, Provider Primary Care Provider Tatum Marcelino MD Unavailable [phone] Encounter Details Date Type Department Care Team (Late st Contact Info) Description 03/08/2021 Lab Requisition [facility] Pathology & Laboratory Medicine - [address] [phone] Outr Resulting Lab, Provider Social History Tobacco Use Types Packs/Day Years Used Date Smoking Tobacco: Every Day Cigarettes Sex and Gender Information Value Date Recorded Sex Assigned at Not on file Gender Identity Not on file Sexual Orientation Not on file documented as of this encounter Plan of Treatment Not on file documented as of this encounter Procedures Procedure Name Priority Date/Time Associated Diagnosis Comments T3 FREE Routine 03/08/2021 10:45 EST documented in this encounter Results * T3 FREE (03/08/2021 10:45 EST) T3, Free 4.7 2.8 - 5.3 pg/mL 03/08/2021 21:47 EST [facility] Blood VENOUS BLOOD / Unknown 03/08/2021 10:45 EST 03/08/2021 21:09 EST Provider Outr Resulting Lab CHEMISTRY & BLOOD GAS ORDERABLES [facility] [address] [place] [address] documented in this encounter Visit Diagnoses Not on filedocumented in this encounter Care Teams Inorganic Chemical Technician Relationship Specialty Start Date End Date None, Provider PCP - General 09/08/13 Tatum Lugo MD [address] [place] [phone] 09/08/13 documented as of this encounter
--- OUTSIDE RECORDS SUMMARY | 2023-10-29 04:03 | XMS_ITS | Encounter Summary ---
Author Organization [facility] Address [address] [place] [address] Care Team Providers Care Travel Cota Name Role Phone None, Provider Primary Care Provider Tatum Marcelino MD Unavailable [phone] Encounter Details Date Type Department Care Team (Late st Contact Info) Description 05/21/2017 Results Only [facility] [phone] Russell Warner, [address] [address] Social History Tobacco Use Types Packs/Day Years [...] TEST- RESULT ONLY Routine 05/21/2017 0:00 EST documented in this encounter Results * PAP TEST- RESULT ONLY (05/21/2017 0:00 EST) Pathology Report: CYTOPATHOLOGY REPORT Reports generated via electronic interface contain original data; however they are lacking the format of the original report. Caution should be taken when reading/interpreti ng unformatted reports. Name: ? ANDREE ROJAS ? Accession #: ? [id number] : ? 1990 (Age: 26) ??F ?Collect Date: ? 05/21/2017 Location: ? [facility] ? Receive Date: ? 05/23/2017 Provider: ?RUSSELL VIVEROS HAND TUFTER-BC Copy to: ? Specimen/Source: ?Pap Test, Cervix, [...] Report Date: ??05/29/2017 10:03 End of Report [facility] 05/21/2017 05/23/2017 Russell Warner HAND TUFTER-BC PATHOLOGY ORDERA BLES [facility] [address] [place] [address] documented in this encounter Visit Diagnoses Not on filedocumented in this encounter Care Teams Travel Cota Relationship Specialty Start Date End Date None, Provider PCP - General 09/08/13 Tatum Lugo MD [address] [place] [phone] 09/08/13 documented as of this encounter
--- OUTSIDE RECORDS SUMMARY | 2023-10-29 04:03 | XMS_ITS | Encounter Summary ---
Author Organization [facility] Address [address] [place] [id number] Care Team Providers Care Football Coach Name Role Phone Tatum Lugo MD Primary Care Provider [phone] Tatum Lugo MD Unavailable [phone] Encounter Details Date Type Department Care Team (Late st Contact Info) Description 10/31/2012 Results Only [facility] Laboratory Services - [facility] ([facility]) [address] [place] [phone] Stephanie Chavez MD [address] [place] [address] Social History Tobacco Use Types Packs/Day Years [...] Diagnosis Comments PAP TEST- RESULT ONLY Routine 10/31/2012 0:00 EDT documented in this encounter Results * PAP TEST- RESULT ONLY (10/31/2012 0:00 EDT) Pathology Report: CYTOPATHOLOGY REPORT Reports generated via electronic interface contain original data; however they are lacking the format of the original report. Caution should be taken when reading/interpreti ng unformatted reports. Name: ? ANDREE ROJAS ? Accession #: ? [id number] : ? 1990 (Age: 22) ??F ?Collect Date: ? 10/31/2012 Location: ? [facility] ? Receive Date: ? 11/01/2012 Provider: ?STEPHANIE CHAVEZ MD Copy to: ? Specimen/Source: ?Pap Test, Cervix/Endocervix, ThinPrep Imaging System with manual evaluation Last Menstrual Period: ? Menstrual/Pregnanc y Status: ? Post ? SPECIMEN ADEQUACY ? Satisfactory for Evaluation - transformation zone component present GENERAL CATEGORIZATION ? Negative for Intraepithelial Lesion or Malignancy INTERPRETATION ? Shift in ike present suggestive of bacterial vaginosis. ? Document reviewed and electronically signed by: ? KAY Jenkins(ASCP) ? Report Date: ??11/07/2012 11:34 End of Report [facility] 10/31/2012 11/01/2012 Stephanie Chavez MD PATHOLOGY ORDERABLES [facility] [address] [place] [address] documented in this encounter Visit Diagnoses Not on filedocumented in this encounter Care Teams Football Coach Relationship Specialty Start Date End Date Tatum Lugo MD [address] [place] [address] [phone] PCP - General 11/16/10 09/07/13 Tatum Lugo MD [address] [place] [phone] 11/14/10 09/07/13 documented as of this encounter
--- OUTSIDE RECORDS SUMMARY | 2023-10-29 04:03 | XMS_ITS | Encounter Summary ---
Author Organization [facility] Address [address] [place] [address] Care Team Providers Care Glass Engraver Name Role Phone Unknown, Provider Primary Care Provider [phone] Tatum Lugo MD Unavailable [phone] Encounter Details Date Type Department Care Team (Late st Contact Info) Description 11/14/2010 Results Only [facility] Laboratory Services - [facility] [place] [address] [place] [address] Mitesh Suarez MD [address], [place] [address] Social History Tobacco Use Types Packs/Day Years Used Date Smoking Tobacco: Never Assessed Sex and Gender Information Value Date Recorded Sex Assigned at Not on file Gender Identity Not on file Sexual Orientation Not on file documented as of this encounter Plan of Treatment Not on file documented as of this encounter Procedures Procedure Name Priority Date/Time Associated Diagnosis Comments SURGICAL PATHOLOGY Routine 11/14/2010 0:00 EDT documented in this encounter Results * SURGICAL PATHOLOGY (11/14/2010 0:00 EDT) Pathology Report: SURGICAL PATHOLOGY REPORT ? Reports generated via electronic interface contain original data; ? however they are lacking the format of the original report. ? Caution should be taken when reading/interpreti ng unformatted reports. ? Name: ? FRANK GIL S ? Accession #: ? [id number] ? : ? 1990 (Age: 20) ??F ? Collect Date: ? 11/14/2010 ? Location: ? [facility] ? Receive Date: ? 11/14/2010 ? Provider: MITESH ZULEYKA MD ? Copy to: ? Final Pathologic Diagnosis: ? A. ?? Skin and soft tissue of ear, right, excision: ?1. ?? Keloid. ??See comment. ? B. ?? Tonsil, right, tonsillectomy: ?1. ?? Tonsil with reactive follicular hyperplasia. ? C. ?? Tonsil, left, tonsillectomy: ?1. ?? Tonsil with reactive follicular hyperplasia. ? D. ?? Adenoids, adenoidectomy: ?1. ?? Adenoids with reactive follicular hyperplasia. ? Document reviewed and electronically signed by: ? VERONICA Guzman BUTNOR MD ? Report ??Date: 11/16/2010 15:42 ? By the signature above, the attending physician certifies that he/she has ? personally conducted a gross and/or microscopic examination of the described ? specimens and rendered or confirmed the above diagnosis. ? Specimen(s) Received: ? A. ?Lesion R ear ? B. ? Right tonsil ? C. ? Left tonsil ? D. ? Adenoids ? Clinical History: ? R ear mass, chronic T+Aitis ? Gross Description: ? Received in formalin labelled GilFrank and Jazlyn ear lesion is a 1.1 x 0.6 cm, unoriented ellipse of skin excised to a depth of 0.2 cm. ??The ?? cutaneous surface has a white, focally pale tam, smooth to focally slightly ? irregular nodule which measures 0.8 x 0.5 cm by 0.4 cm in height. ??The resection margin is black-inked. ??Sections reveal the nodule has a firm white cut surface. The specimen is entirely submitted as follows: ? BLOCK MONROY ? A1,A2 ?Four central sections ? A3 ?Tips, reverse en face ? Received in formalin labelled Bimal, Frank and R tonsil is a 3.5 x ?? 2.5 x 1.7 cm, firm tonsil which has a multinodular to lobular, tam mucosal ? surface. ??The resection margin is black-inked. ??Sections reveal a tam, slightly lobular cut surface. ??Two customer service representative teacher sections are submitted as (B). ? Received in formalin labelled Bimal Frank and L tonsil are two ? pieces of firm tonsil which measure 2.3 x 2.0 x 1.5 cm and 2.2 x 2.1 x 1.5 cm. ?? Both pieces have light tam, multinodular mucosal surfaces and resection margins are black inked. ??Sections reveal a light tam, slightly lobular cut surface. ? Two customer service representative teacher sections of the specimen are submitted as (C). ? Received in formalin labelled Gil, Frank and adenoids is a 1.8 x ?? 1.3 x 1.3 cm, firm, light tam, focally blood-stained, slightly lobular piece of tissue. ??Two customer service representative teacher sections of the specimen are submitted as (D). (J. ?? Belle)/[facility] ? End of Report ? [facility] 11/14/2010 11/14/2010 18: 09 EDT Mitesh Suarez MD PATHOLOGY ORDERABLES Performing Organization Address City/State/[facility] Co de Phone Number [facility] [address] [place] [address] documented in this encounter Visit Diagnoses Not on filedocumented in this encounter Care Teams Glass Engraver Relationship Specialty Start Date End Date Unknown, Provider, PCP - General 11/14/10 11/15/10 Tatum Lugo MD [address] [place] [phone] 11/14/10 09/07/13 documented as of this encounter
--- OUTSIDE RECORDS SUMMARY | 2023-10-29 04:03 | XMS_ITS | Encounter Summary ---
Author Organization [facility] Address [address] [place] [address] Care Team Providers Care Behavior Management Specialist Name Role Phone Tatum Arevalo MD Primary Care Provider [phone] Encounter Details Date Type Department Care Team (Late st Contact Info) Description 05/14/2007 Results Only [facility] - [address] [phone] Harsha Kingston MD [address] [phone] Social History Tobacco Use Types Packs/Day Years Used Date Smoking Tobacco: Never Assessed Sex and Gender Information Value Date Recorded Sex Assigned at Not on file Gender Identity Not on file Sexual Orientation Not on file documented as of this encounter Plan of Treatment Not on file documented as of this encounter Procedures Procedure Name Priority Date/Time Associated Diagnosis Comments SURGICAL PATHOLOGY Routine 05/14/2007 0:00 EST documented in this encounter Results * SURGICAL PATHOLOGY (05/14/2007 0:00 EST) Pathology Report: SURGICAL PATHOLOGY REPORT Reports generated via electronic interface contain original data; however they are lacking the format of the original report. Caution should be taken when reading/interpreting unformatted reports. Name: ? ANDREE ROJAS ? Accession #: ? [id number] ? : ? 1990 (Age: 16) ??F ? Collect Date: ? 05/14/2007 ? Location: ? [facility] ? Receive Date: ? 05/14/2007 ? Provider: HARSHA GONZALEZ MD Copy to: TATUM AREVALO MD ? Final Pathologic Diagnosis: A. ?Esophagus, mid, biopsy: 1. ?Squamous mucosa without significant abnormality. B. ?Esophagus, distal, biopsy: 1. ?Squamous mucosa without significant abnormality. C. ?Stomach, antrum and fundus, polyps, biopsies: 1. ?Antral and fundic mucosa with reactive gastropathy, and prominent lymphoid follicles. 2. ? Helicobacter pylori organisms are not present. See comment. D. ?Stomach, antrum, biopsy: 1. ?Antral mucosa with minimal reactive changes. 2. ? Helicobacter pylori organisms are not present. See comment. E. ?Small bowel, duodenum, biopsy: 1. ?Mild chronic duodenitis with a focal collection of ganglion cells. See comment. 2. ? Negative for Giardia, celiac disease, or other significant inflammation. F. ?Small bowel, terminal ileum, biopsies: 1. ?Ileal mucosa without significant abnormality. 2. ? Negative for active or chronic ileitis. G. ?Colon, cecum, biopsy: 1. ?Colonic mucosa without significant abnormality. 2. ? Negative for active or chronic colitis. H. ?Colon, right, biopsy: 1. ?Colonic mucosa without significant abnormality. 2. ? Negative for active or chronic colitis. I. ?Colon, transverse, biopsy: 1. ?Colonic mucosa without significant abnormality. 2. ? Negative for active or chronic colitis. J. ?Colon, left, biopsy: 1. ?Colonic mucosa without significant abnormality. 2. ? Negative for active or chronic colitis. K. ?Rectum, polyps, biopsies: 1. ?Lymphoglandular complex. Comment: ? The biopsy from the duodenum reveals a focal collection of ganglion cells in the lamina propria which raised the possibility of ganglioneuroma or gangliocytic paraganglioma. However other histological features such as spindle cells and epithelioid cells were not present to support the above impression. Immunohistochemical staining was also performed to further characterize the lesion. However the area of interest appears to have been lost in the deeper levels. It is not possible to entirely exclude the aforementioned differential diagnoses in the limited specimen available for evaluation and additional work up with clinical correlation is recommended. This case has been discussed with the clinician Dr. Harsha Gonzalez. Immunohistochemical staining was performed on this case to further characterize the lesion. ??Positive and negative controls stained appropriately. ??(Dr. Nam)/ljn Block ?Antibody (Clone) ? Result ? C,D ?H Pylori (polyclonal, [facility]) ? Negative ? E ?S-100 protein DAB (4C4.9, [facility]) ? Non-contributory ? E ?Synaptophysin (Snp88, [employer]) ? Non-contributory Powder Mill Operator sections from the stomach and duodenum were shown at the intradepartmental consensus conference. NOTE: ??One or more of the reagents used in immunohistochemical testing in this case may not have been cleared or approved by the U.S. Food and Drug Administration (FDA). ??The FDA has determined that such clearance or approval is not necessary. ??These tests are used for clinical purposes. ??They should not be regarded as investigational or for research. ??These reagents' ??performance characteristics have been determined by [facility]. ??This laboratory is certified under the Clinical Laboratory Improvement Amendments of 1988 (CLIA-88) as qualified to perform high complexity clinical laboratory testing. ?? Document reviewed and electronically signed by: Nelida Nam MD Report ??Date: 05/20/2007 13:44 By the signature above, the attending physician certifies that he/she has personally conducted a gross and/or microscopic examination of the described specimens and rendered or confirmed the above diagnosis. Specimen(s) Received: A. ?Esophagus mid B. ? Esophagus distal C. ? Antral and fundic polyps D. ? Antrum E. ? Duodenum F. ? Terminal ileum G. ? Cecum H. ? R colon I. ? Transverse J. ? L colon K. ? Rectal polyps Clinical History: ? Abd pain, diarrhea, multiple polyps Gross Description: ? Received in Hollande's fixative labelled JohnstonMcWilliams and esophagus mid is a 0.5 x 0.3 x 0.1 cm portion of tam-white soft tissue. ??The specimen is submitted intact as (A). Received in Hollande's fixative labelled JohnstonMcWilliams and esophagus distal is a 0.4 x 0.4 x 0.1 cm portion of tam-white soft tissue. ??The specimen is submitted intact as (B). Received in Hollande's fixative labelled JohnstonMcWilliams and antral and fundic polyps are four tam-pink polypoid portions of soft tissue averaging 0.3 x 0.2 x 0.2 cm. ??Submitted in toto as (C). Received in Hollande's fixative labelled JohnstonMcWilliams and antrum is a 0.3 x 0.2 x 0.2 cm portion of tam-pink soft tissue. ??The specimen is submitted intact as (D). ?? Received in Hollande's fixative labelled JohnstonMcWilliams and duodenum is a 0.4 x 0.3 x 0.2 cm portion of tam-pink soft tissue. ??The specimen is submitted intact as (E). Received in Hollande's fixative labelled JohnstonMcWilliams and terminal ileum are two portions of tam-pink soft tissue averaging 0.4 x 0.3 x 0.1 cm. Submitted in toto as (F). Received in Hollande's fixative labelled JohnstonMcWilliams and cecum is a 0.5 x 0.4 x 0.1 cm portion of tam-pink soft tissue. ??The specimen is submitted intact as (G). Received in Hollande's fixative labelled JohnstonMcWilliams and right colon is a 0.4 x 0.4 x 0.1 cm portion of tam-pink soft tissue. ??The specimen is submitted intact as (H). Received in Hollande's fixative labelled JohnstonMcWilliams and transverse is a 0.5 x 0.3 x 0.1 cm portion of tam-pink soft tissue. ??The specimen is submitted intact as (I). Received in Hollande's fixative labelled JohnstonMcWilliams and left colon is a 0.8 x 0.3 x 0.1 cm portion of tam-pink soft tissue. ??The specimen is submitted intact as (J). Received in Hollande's fixative labelled JohnstonMcWilliams and rectal polyps are two tam-pink polypoid portions of soft tissue averaging 0.5 x 0.3 x 0.2 cm. ??Submitted in toto as (K). ??(Jadon Cheney)/[facility] [place] End of Report [facility] 05/14/2007 05/14/2007 12: 18 EST Harsha Kingston MD PATHOLOGY ORD ERABLES [facility] [address] [place] [address] documented in this encounter Visit Diagnoses Not on filedocumented in this encounter Care Teams Behavior Management Specialist Relationship Specialty Start Date End Date Tatum Arevalo MD [address] [place] [phone] PCP - General 08/06/08 11/13/10 documented as of this encounter
--- OUTSIDE RECORDS SUMMARY | 2023-10-29 04:03 | XMS_ITS | Encounter Summary ---
Author Organization [facility] Address [address] [place] [id number] Care Team Providers Care Hand Sample Maker Name Role Phone None, Provider Primary Care Provider Tatum Marcelino MD Unavailable [phone] Encounter Details Date Type Department Care Team (Late st Contact Info) Description 01/30/2020 Lab Requisition [facility] Pathology & Laboratory Medicine - [address] [address] Outr Resulting Lab, Provider Social History Tobacco Use Types Packs/Day Years Used Date Smoking Tobacco: Never Assessed Sex and Gender Information Value Date Recorded Sex Assigned at Not on file Gender Identity Not on file Sexual Orientation Not on file documented as of this encounter Plan of Treatment Not on file documented as of this encounter Visit Diagnoses Not on filedocumented in this encounter Care Teams Hand Sample Maker Relationship Specialty Start Date End Date None, Provider PCP - General 09/08/13 Tatum Lugo MD [address] [place] [phone] 09/08/13 documented as of this encounter
--- OUTSIDE RECORDS SUMMARY | 2023-10-29 04:03 | XMS_ITS | Encounter Summary ---
Author Organization [facility] Address [address] [place] [address] Care Team Providers Care Nozzleman Name Role Phone None, Provider Primary Care Provider Tatum Marcelino MD Unavailable [phone] Reason for Visit * Reason Comments Knee Injury pt tripped over david r and landed on knee - severe pain. Encounter Details Date Type Department Care Team (Late st Contact Info) Description 09/08/2013 19:26 EDT - 09/08/2013 20:51 EDT Emergency [facility] Emergency Department - Main [place] [address] [place] [address] [phone] Lucas Guajardo PA-C [address] [place] [address] [place] [address] [phone] Emergency, MD Francis Knee sprain (Primary Dx) Discharge Disposition: Home or Self Care Social History Tobacco Use Types Packs/Day Years Used Date Smoking Tobacco: Every Day Cigarettes Sex and Gender Information Value Date Recorded Sex Assigned at Not on file Gender Identity Not on file Sexual Orientation Not on file documented as of this encounter Last Filed [...] this encounter Discharge Instructions * Discharge Instructions* Lucas Guajardo - 09/08/2013 20:46 EDT I recommend conservative treatment for the knee sprain. Ice and elevate to reduce pain and swelling. Use Motrin for pain control documented in this encounter Medications at Time of Discharge Medication Sig Dispensed Refills Start Date End Date levothyroxine (SYNTHROID) 150 mcg tablet Take 175 mcg by mouth daily. documented as of this encounter Discharge Disposition Disposition Code Departure Means Destination Home or Self Care Car Home documented in this encounter ED Notes * Lucas Guajardo - 09/10/2013 1659 EDT DOS: 09/08/2013 Chief Complaint Patient presents with ??? Knee Injury pt tripped over chair and landed on knee - severe pain. The patient is a 23 y.o. female who presents today with Knee Injury HPI Patient is a 23-year-old female presenting with right knee injury after tripping over a chair and landing directly on the knee. She states she is able to bear weight but with pain. Requesting x-ray Review of Systems Constitutional: Negative for fever and chills. HENT: Negative for neck stiffness. Eyes: Negative for visual disturbance. Respiratory: Negative for shortness of breath. Cardiovascular: Negative for chest pain. Gastrointestinal: Negative for abdominal pain. Genitourinary: Negative for dysuria. Musculoskeletal: Positive for arthralgias (Right knee). Negative for back pain. Skin: Negative for rash. Neurological: Negative for headaches. Psychiatric/Behavioral: Negative for confusion. All other systems reviewed and are negative. No past medical history on file. No past surgical history on file. Allergies Allergen Reactions ??? Demerol (Meperidine) History Substance Use Topics ??? Smoking status: Current Every Day Smoker -- 0.50 packs/day ??? Smokeless tobacco: Not on file ??? Alcohol Use: Not on file No family history on file. Vital Signs Temp: 36.6 ??C (97.9 ??F) Pulse: 99 Resp: 18 SpO2: 99 % BP: 118/61 mmHg BP Device: BP Machine Patient Position: Sitting BP Cuff Location: Right arm Physical Exam Constitutional: She is oriented to person, place, and time. She appears well- developed and well-nourished. Musculoskeletal: Normal range of motion. Normal range of motion the patient has point tenderness over the anterior aspect of the right proximal tibia. Patella is nontender Neurological: She is alert and oriented to person, place, and time. KNEE 4 OR MORE VIEWS Final result not shown here.: Radiology orders: KNEE 4 OR MORE VIEWS Imaging Results KNEE 4 OR MORE VIEWS (Final result) Result time: 09/08/13 20:34:33 Final result Narrative: KNEE 4 OR MORE VIEWS 09/08/2013 8:07 PM SIGNS AND SYMPTOMS/COMMENTS: pain Comparison: None. Findings: 4 views were obtained of the left knee. No fracture is identified. Alignment is anatomic. There is no knee joint effusion. I have personally reviewed the images and the above interpretation and agree with the findings. Preliminary result Narrative: PRELIMINARY RESIDENT REPORT KNEE 4 OR MORE VIEWS 09/08/2013 8:07 PM SIGNS AND SYMPTOMS/COMMENTS: pain Comparison: None. Findings: 4 views were obtained of the left knee. No fracture is identified. Alignment is anatomic. There is no knee joint effusion. I have personally reviewed the images and the above interpretation and agree with the findings. Preliminary result Narrative: PRELIMINARY RESIDENT REPORT KNEE 4 OR MORE VIEWS 09/08/2013 8:07 PM SIGNS AND SYMPTOMS/COMMENTS: pain Comparison: None. Findings: 4 views were obtained of the left knee. No fracture is identified. Alignment is anatomic. There is no knee joint effusion. This is a preliminary report dictated by Fady Jose MD, assistant to the vice president. Procedures ED Course: A medical screening exam was performed. X-ray of the knee shows no evidence of fracture. Most consistent with sprain PCP followed up with any persistent symptoms Disposition: Discharged The patient's pain was managed to an adequate level weighing risk vs. benefit of further medications. Upon departure from the Emergency Department, the patient's pain was 5 on a zero to ten scale. Condition at departure from the Emergency Department: Good Discharge Medication List as of 09/08/2013 20:46 CONTINUE these medications which have NOT CHANGED Details levothyroxine (SYNTHROID) 150 mcg tablet Take 175 mcg by mouth daily., Historical Med MDM Number of Diagnoses or Management Options Knee sprain: Diagnosis management comments: 3 Final diagnoses: Knee sprain PCP: Provider None Antonio Sade was available for supervision. 09/10/2013 16:59 * Nohemi Murray, RN - 09/08/20132049 EDT Pt verbalized understanding of d/c instructions. Knee wrapped with naveed bandage. Pt ambulatory out of ED documented in this encounter Plan of Treatment Not on file documented as of this encounter Procedures Procedure Name Priority Date/Time Associated Diagnosis Comments KNEE 4 OR MORE VIEWS Routine 09/08/2013 20:07 EDT documented in this encounter Results * KNEE 4 OR MORE VIEWS (09/08/2013 20:07 EDT) Anatomical Region Laterality Modality Other 09/08/2013 20:0 7 EDT 09/08/2013 20:34 EDT Narrative 09/08/2013 20:34 EDT KNEE 4 OR MORE VIEWS ??09/08/2013 8:07 PM SIGNS AND SYMPTOMS/COMMENTS: ??pain Comparison: None. Findings: 4 views were obtained of the left knee. No fracture is identified. Alignment is anatomic. There is no knee joint effusion. I have personally reviewed the images and the above interpretation and agree with the findings. Procedure Note 09/08/2013 KNEE 4 OR MORE VIEWS 09/08/2013 8:07 PM SIGNS AND SYMPTOMS/COMMENTS: pain Comparison: None. Findings: 4 views were obtained of the left knee. No fracture is identified. Alignment is anatomic. There is no knee joint effusion. I have personally reviewed the images and the above interpretation and agree with the findings. Lucas Guajardo PA-C IMG DIAGNOSTIC IMAG ING ORDERABLES documented in this encounter Visit Diagnoses Diagnosis Knee sprain- Primary Sprain and strain of unspecified site of knee and leg documented in this encounter Administered Medications Inactive Administered Medications - up to 3 most recent administrations Medication Order MAR Action Action Date Dose Rate Site Ibuprofen 600 mg Tab STARTER PACK 1 Package, oral, NOW X1, 1 dose, On 09/08/13 at 2100, STAT Given 09/08/2013 20:46 EDT 1 Package documented in this encounter Historical Medications * This list may reflect changes made after this encounter. Medication Sig Dispensed Refills Start Date End Date levothyroxine (SYNTHROID) 150 mcg tablet Take 175 mcg by mouth daily. added in this encounter Active and Recently Administered Medications Times are shown in EDT. Scheduled Medication Order 09/06/2013 09/07/2013 09/08/2013 Ibuprofen 600 mg Tab STARTER PACK (COMPLETED) 1 Package, oral, NOW X1, 1 dose, On Sun09/08/13 at 2100, STAT 6 (Given - [facility] er: Nohemi Murray RN) documented in this encounter Care Teams Nozzleman Relationship Specialty Start Date End Date None, Provider PCP - General 09/08/13 Tatum Lugo MD [address] [place] [address] [phone] 09/08/13 documented as of this encounter
--- OUTSIDE RECORDS SUMMARY | 2023-10-29 04:03 | XMS_ITS | Encounter Summary ---
Author Organization [facility] Address [address] [place] [address] Care Team Providers Care Coil Repair Technician Name Role Phone Unavailable Primary Care Provider Unavailabl e Encounter Details Date Type Department Care Team (Late st Contact Info) Description 05/14/2007 8:03 EST - 05/14/2007 11:59 EST Hospital Encounter [address] [address] Harsha Kingston MD [address] [place] [phone] Discharge Disposition: Auto Discharge Social History Tobacco Use Types Packs/Day Years Used Date Smoking Tobacco: Never Assessed Sex and Gender Information Value Date Recorded Sex Assigned at Not on file Gender Identity Not on file Sexual Orientation Not on file documented as of this encounter Discharge Disposition Disposition Code Departure Means Destination Auto Discharge documented in this encounter Plan of Treatment Not on file documented as of this encounter Visit Diagnoses Not on filedocumented in this encounter
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
--- OUTSIDE RECORDS SUMMARY | 2023-10-29 04:03 | XMS_ITS | Encounter Summary ---
Author Organization [facility] Address [address] [place] [address] Care Team Providers Care Salesperson Sheet Music Name Role Phone None, Provider Primary Care Provider Tatum Marcelino MD Unavailable [phone] Encounter Details Date Type Department Care Team (Latest Contact Info) Description 10/09/2013 7:21 EDT - 10/09/2013 7:22 EDT Hospital Encounter [address] [address] Jose Enrique Pacheco MD [address] [place] [address] Discharge Disposition: Home or Self Care Social History Tobacco Use Types Packs/Day Years Used Date Smoking Tobacco: Every Day Cigarettes Sex and Gender Information Value Date Recorded Sex Assigned at Not on file Gender Identity Not on file Sexual Orientation Not on file documented as of this encounter Discharge Diagnoses Diagnosis 789.00 ABDOMINAL PAIN UNSPEC SITE[ICD-9-CM] documented in this encounter Medications at Time of Discharge Medication Sig Dispensed Refills Start Date End Date levothyroxine (SYNTHROID) 150 mcg tablet Take 175 mcg by mouth daily. documented as of this encounter Discharge Disposition Disposition Code Departure Means Destination Home or Self Care documented in this encounter Plan of Treatment Not on file documented as of this encounter Visit Diagnoses Not on filedocumented in this encounter Care Teams Salesperson Sheet Music Relationship Specialty Start Date End Date None, Provider PCP - General 09/08/13 Tatum Lugo MD [address] [place] [phone] 09/08/13 documented as of this encounter
--- OUTSIDE RECORDS SUMMARY | 2023-10-29 04:03 | XMS_ITS | Encounter Summary ---
Author Organization [facility] Address [address] [place] [address] Care Team Providers Care Structural Steel Fitter Name Role Phone Unavailable Primary Care Provider Unavailabl e Encounter Details Date Type Department Care Team (Late st Contact Info) Description 05/24/2007 11:52 [facility] Hospital Encounter [address] [address] Harsha Kingston MD [address] [place] [phone] Social History Tobacco Use Types Packs/Day Years [...]
--- OUTSIDE RECORDS SUMMARY | 2023-10-29 04:03 | XMS_ITS | Encounter Summary ---
Author Organization [facility] [place] [address] Care Team Providers Care Garage Worker Name Role Phone None Primary Care Provider Unavailabl e Reason for Visit * Reason Comments Thyroid Nodule Encounter Details Date Type Department Care Team ([facility] st Contact Info) Description 03/15/2011 11:10 AM EST Office [place] [phone] Jona Dickinson MD [address] [place] [id number] Thyroid nodule (Primary Dx) Discharge Disposition: Home Social History Tobacco Use Types Packs/Day Years Used Date Smoking Tobacco: Never Sex and Gender Information Value Date Recorded Sex Assigned at Female 10/12/2023 9:44 AM EDT Gender Identity Female 10/12/2023 9:44 AM EDT Sexual Orientation Straight 10/12/2023 9: 44 AM EDT documented as of this encounter Progress Notes * Jona Dickinson MD - 03/15/2011 11:54 AM EST Andree Hummel is a 20 y.o. year old female who was recently had an FNA of a left lower pole lesion that yielded indeterminate (microfollicular) cytology. she presents today for discussion of the cytologic findings and lateral neck ultrasound. NECK ULTRASOUND Real time images of the neck were obtained using a [employer] and an [id number] broadband linear array transducer. Right Lobe: The right lobe is as previously described. Left Lobe: The left lobe is as previously described. The previously described vascular lesion is arising from,or abutting, the left lower pole of the thyroid. Central neck: There are no masses or morphologically abnormal lymph nodes identified in the central neck. Lateral neck: Examination of bilateral levels II to V does not reveal any masses or morphologically abnormal lymph nodes. ASSESSMENT Thyroid nodule with indeterminate (microfollicular) cytology. This is associated with a 20% risk ofmalignancy on histologic examination. Neck ultrasound today does not demonstrate any evidence of lymph node involvement. We discussed the limitations of today's study: - The central compartment of the neck is often not well visualized with the thyroid gland still in place. This compartment will be assessed more at the time of surgery, and a formal central compartment dissection should be performed in the event that any suspicious / positive lymph nodes are found. - The lateral compartment is does not contain any visibly abnormal lymph nodes. This finding does not completely eliminate the possibility of lateral compartment involvement - microscopic deposits oftumor within a lymph node are not generally visible on ultrasound. However, the likelihood of lateral neck disease is sufficiently low, that a lateral neck dissection is not warranted at present. > 50% of this 30 minute appointment spent counseling the patient on the cytology result, the neck ultrasound result, the limitations of the study and the surgical plan. documented in this encounter Plan of Treatment Upcoming Encounters Date Type Department Care Team (Late st Contact Info) Description 05/23/2024 [place] [address] Maite Malloy MD [facility] [address] OBST[place] [address] documented as of this encounter Visit Diagnoses Diagnosis Thyroid nodule- Primary Nontoxic uninodular goiter documented in this encounter Care Teams Garage Worker Relationship Specialty Start Date End Date None None PCP - General 02/23/11 05/09/11 documented as of this encounter
--- OUTSIDE RECORDS SUMMARY | 2023-10-29 04:03 | XMS_ITS | Encounter Summary ---
Author Organization [facility] [place] [address] Care Team Providers Care Salt Miner Name Role Phone None Primary Care Provider Unavailabl e Reason for Visit * Reason Comments Thyroid Nodule Encounter Details Date Type Department Care Team ([facility] st Contact Info) Description 02/23/2011 1:00 PM EST Office [place] [address] Jona Dicknison MD [address] [place] [phone] Hypothyroid (Primary Dx); Thyroid nodule Discharge Disposition: Home Social History Tobacco Use Types Packs/Day Years Used Date Smoking Tobacco: Never Sex and Gender Information Value Date Recorded Sex Assigned at Female 10/12/2023 9:44 AM EDT Gender Identity Female 10/12/2023 9:44 AM EDT Sexual Orientation Straight 10/12/2023 9: 44 AM EDT documented as of this encounter Progress Notes * Yessy Novak - 02/23/2011 4:21 PM EST PROCEDURE: THYROID FNA Indication: Left dominant nodule Informed consent was obtained after a discussion of the nature of the procedure, its risks, benefits and possible alternatives. Immediately prior to the start of the procedure: - The patient's identity was confirmed using two identifiers - The intended procedure, patient positioning and availability of all required equipment was also confirmed. - The proper site(s)/side(s) of the nodule(s) was/were confirmed by visualization with ultrasound. The biopsy site(s) on the patient's neck was/were prepared using isopropyl alchohol. The skin was anaesthetized with 1cc of 1% lidocaine with 1:100 000 epinephrine. 3 passes of a 25g needle were performed. The needle placement was ultrasound guided. The needle was visualized in the nodule in each pass. The procedure was well tolerated by the patient. The patient was given a thyroid FNA post-procedure handout upon completion. * Yessy Novak - 02/23/2011 4:20 PM EST THYROID ULTRASOUND: Indication: Thyroid nodule on prior study; Considering FNA - clarify size, position and US characteristics Date: 02/23/2011 Real time images of the thyroid gland were obtained using a [employer] and an HFL38/13-6 broadband linear array transducer. [...] doppler. Impression: Thyroid nodules as described above. Ultrasound performed by Dr Teena Novak MD Endocrinology Fellow * Jona Dickinson MD - 02/23/2011 2:17 PM EST I have seen the patient and reviewed the resident's above history and I agree with the details as written. The assessment and plan were formulated in discussion with me and I agree with them as documented. Briefly, this is a 20 y/o female who, during the course of a workup for tonsillitis, was found to have a left thyroid nodule. She is complaining of fatigue, constipation and cold intolerance. OE: Thyroid is enlarged L > R US: Diffusely heterogeneous gland with evidence of honeycombing. In, or abutting, the left lower pole is a solid, isoechoic mass measuring 2.5cm. 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 Likely she will require T4 replacement. * Yessy Novak - 02/23/2011 1:18 PM EST Patient ID: Andree Hummel is a 20 y.o. female referred for thyroid nodule by Katelynn Lugo MD HPI Andree is a 20 yo female who was noted to have a 3 cm left thyroid nodule in August of this year on CTscan of the neck. At that time, she was hospitalized with an acute airway obstruction due to tonsillar enlargement thought to be viral in nature. She did not require intubation and was treated successfully with steroids and antibiotics and pain control. She then had tonsillectomy and adenoidectomy in November of this year. She c/o constipation, fatigue, and cold intolerance that are new over the last year. She also recently had a miscarriage which was her second one in the last year. Both pregnancies were accidents. She denies thyroid compressive symptoms including globus sensation, dysphagia, dysphonia or dyspnea. Occasionally feels her left neck is sore. No FH of thyroid cancer. No personal history of head and neck irradiation. Review of Systems All other systems reviewed and are negative. Patient Active Problem List Diagnoses Code ??? Migraine 346.90A ??? Depression 311L ??? Thyroid nodule 241.0B Current outpatient prescriptions ordered prior to encounter Medication Sig Dispense Refill ??? NORGESTIMATE-ETHINYL ESTRADIOL (ORTHO-CYCLEN, 28, ORAL) No Known Allergies SH: Lives in [facility]. Occasional smoker. Occasional alcohol. No drug use. FH: Younger sister has hypothyroidism. Objective: Physical Exam General: NAD, AAOx3 HEENT: EOMI, anicteric, PERRL, no exoophthalmous, moist mucous membranes Neck: No LAD, mild thyromegaly, approximate size 25 grams, left larger than right, slight bosselated firm texture. CV: S1 S2, RRR, no m/r/g Lungs: CTABL Abd: soft, NT/ND, +BS, no HSM or masses Neuro: reflexes 2+ bilaterally, no tremor of hands Extremities: no lower extremity edema Integumentary: Skin warm and dry/intact Thyroid ultrasound done today as per attached note. Assessment and Plan: Obinna's thyroiditis by ultrasound appearance: Will check TSH today. Depending on level of elevation may choose to treat with thyroid hormone. In addition, certainly if became , would consider treatment regardless of level. Thyroid nodule: Indications for biopsy were discussed with her today and FNA was performed which she tolerated fairly well. Will call her with results in 1 week. All questions answered and patient voiced good understanding of the plan. Patient seen and discussed with Dr. Dickinson. Yessy Novak MD Endocrinology Fellow [facility] Section of Endocrinology documented in this encounter Plan of Treatment Upcoming Encounters Date Type Department Care Team (Late st Contact Info) Description 05/23/2024 [place] [address] Maite Malloy MD [facility] DR OBSTETRICS [place] [address] documented as of this encounter Procedures Procedure Name Priority Date/Time Associated Diagnosis Comments NON-HAND GLASS CUTTER FINAL REPORT Routine 02/23/2011 4:31 PM EST TSH Routine 02/23/2011 2:25 PM EST Hypothyroid CYTOPATHOLOGY NON-GYNECOLOGICAL Routine 02/23/2011 2:18 PM EST Hypothyroid Thyroid nodule documented in this encounter Results * Non-Export Agent Final Report (02/23/2011 4:31 PM EST) Non-Export Agent Final Report [id number] ? Location: 5C The signing pathologist has (i) examined the relevant preparation(s) for the specimen(s) and (ii) rendered or confirmed the diagnosis(es). . ? Pathology Non-Export Agent Cytology Final Report Clinical Information Specimen Source : ?? Thyroid, left lower pole (US-guided FNA) Pertinent Clinical Data and Significant Therapy: ?? Nodule. Clinical Impression : ?? Nodule. Pertinent Radiologic Findings ??: Size: ??2.5 cm Echogenicity: ??Iso Cystic: ??No Calcification: ??No Vascularity: ??Absent/low Gross Description: ?? Received in Cytorich Red, approximately 10 ml total volume of clear, pink fluid. ?? Total Preparation: Liquid Based Prep 1; Diff Quik 2; Pap Stain 2. Interpretation Specimen submitted is satisfactory. Diagnosis Atypical 02/24/11 ?Screened by: ? FMQ ?Rescreened by: ?? FCL,ADJUNCT INSTRUCTOR IN ECONOMICS 03/01/11 ?Verified by: ? MELLO LIMA, RENARD ? Pathologist ? (Electronic Signature) Comment Thyroid, left lower pole (US-guided FNA): Atypical Cytologic preservation: ?? Adequate Cellularity (follicular cells): ?? Adequate Colloid: ?? Scant on LBP Macrophages: ?? Absent . Comment Follicular cells present predominantly in a micro- [...] conference with Juan Ramon Ashby and Lori. [facility] 02/23/2011 4:31 PM EST Jona Dickinson MD PATHOLOGY/CYTOLOGY O RDERABLES Performing Organization Address [facility] Co de Phone Number [facility] * TSH (02/23/2011 2:25 PM EST) TSH 1.62 0.27 - 4.20 mcIU/mL [facility] Blood specimen (specimen) 02/23/2011 2:25 PM EST 02/23/2011 2:51 PM EST Jona Dickinson MD CHEMISTRY ORDERABLES Performing Organization Address [facility] Co de Phone Number [facility] * Cytopathology Non-Gynecological (02/23/2011 2:18 PM EST) AP Specimen 02/23/2011 2:18 PM EST 02/23/2011 2:18 PM EST Narrative [facility] - 02/23/2011 2:18 PM EST Specimen requisition ordered. ??Separate Pathology report to follow Jona Dickinson MD PATHOLOGY/CYTOLOGY O RDERAARIANNA Performing Organization Address [facility] Co de Phone Number [facility] documented in this encounter Visit Diagnoses Diagnosis Hypothyroid- Primary Unspecified hypothyroidism Thyroid nodule Nontoxic uninodular goiter documented in this encounter Care Teams Salt Miner Relationship Specialty Start Date End Date None None PCP - General 02/23/11 05/09/11 documented as of this encounter
--- OUTSIDE RECORDS SUMMARY | 2023-10-29 04:03 | XMS_ITS | Encounter Summary ---
Author Organization [facility] Address [address] [place] [address] Care Team Providers Care Air Tank Assembler Name Role Phone None, Provider Primary Care Provider aTtum Marcelino MD Unavailable [phone] Encounter Details Date Type Department Care Team ([facility] st Contact Info) Description 10/09/2013 Results Only [facility] [phone] Jose Enrique Pacheco MD [address] [place] [phone] Social History Tobacco Use Types Packs/Day Years Used Date Smoking Tobacco: Every Day Cigarettes Sex and Gender Information Value Date Recorded Sex Assigned at Not on file Gender Identity Not on file Sexual Orientation Not on file documented as of this encounter Plan of Treatment Not on file documented as of this encounter Procedures Procedure Name Priority Date/Time Associated Diagnosis Comments CHLAMYDIA/N. GONORRHOEAE AMPLIFIED NUCLEIC ACID Routine 10/09/2013 12:45 EDT ZZVAGINITIS EXAM Routine 10/09/2013 12:4 5 EDT documented in this encounter Results * (ABNORMAL) CHLAMYDIA/GC AMPLIFIED (10/09/2013 12:45 EDT) Specimen Description Vagina [facility] Chlamydia Result CHLAMYDIA TRACHOMATIS DNA detected by service center technician mediated amplification.(A ) [facility] GC Result No Neisseria gonorrhoeae DNA detected by service center technician mediated amplification. [facility] 10/09/2013 12:4 5 EDT 10/09/2013 15:02 EDT Jose Enrique Pacheco MD MICROBIOLOGY - GENER AL ORDERABLES Performing Organization Address City/[facility] Co de Phone Number [facility] [address] [place] [address] * VAGINITIS EXAM (10/09/2013 12:45 EDT) Specimen Description Vagina [facility] Gram Smear Result No yeast seen. [facility] Gram Smear Result Smear consistent with BACTERIAL VAGINOSIS. [facility] Result No Trichomonas antigen detected. [facility] Report Status 10/09/2013 Final [facility] VAGINAL STRUCTURE / Unknown 10/09/2013 12:45 EDT 10/09/2013 15:02 EDT Jose Enrique Pacheco MD MICROBIOLOGY - GENER AL ORDERABLES Performing Organization Address [facility] de Phone Number [facility] [address] [place] [address] documented in this encounter Visit Diagnoses Not on filedocumented in this encounter Care Teams Air Tank Assembler Relationship Specialty Start Date End Date None, Provider PCP - General 09/08/13 Tatum Lugo MD [address] [place] [phone] 09/08/13 documented as of this encounter
--- OUTSIDE RECORDS SUMMARY | 2023-10-29 04:03 | XMS_ITS | Encounter Summary ---
Author Organization [facility] [place] [place] [address] Care Team Providers Care Pet Care Technician Name Role Phone None Primary Care Provider Unavailabl e Encounter Details Date Type Department Care Team (Late st Contact Info) Description 03/22/2011 2:03 PM EST Anesthesia Event [place] [address] Anatoly Ibarra MD [address] [place] [address] Magalie Suarez [facility] [place] [address] Anesthesia Record Procedure Summary Procedure Name Responsible Anesthesiologist Anesthesia Start Time Anesthesia Stop Time THYROIDECTOMY, FOR MALIGNANCY, LIMITED NECK DISSECTION (WRVU 22.01) (Neck) Anatoly Ibarra MD 03/22/11 1403 03/22/11 1727 Events Date Time Event Comment 03/22/2011 1328 1403 Start 1727 Stop Meds * Agents No agents on file. * Blood No blood administrations on file. Lines, Drains, and Airways Type Details Placement Removal Incision 03/22/11; neck; 09/14/12; 1136 03/22/11 0000 by Karyna Cai RN 09/14/12 1136 by Emeli Knight APRN (RETIRED) Peripheral IV Line - Single Lumen 03/22/11; 1252; 03/22/11; 1904 03/22/11 1252 by Kerry Castro RN 03/22/11 1904 by Radha Hurtado RN documented in this encounter Social History Tobacco Use Types Packs/Day Years Used Date Smoking Tobacco: Former Cigarettes Q uit: 03/14/2011 Sex and Gender Information Value Date Recorded Sex Assigned at Female 10/12/2023 9:44 AM EDT Gender Identity Female 10/12/2023 9:44 AM EDT Sexual Orientation Straight 10/12/2023 9: 44 AM EDT documented as of this encounter OR Notes * Anesthesia Preprocedure Evaluation - Mark Sarabia MD - 03/22/2011 1:26 PM EST Anesthesia Evaluation Patient summary reviewed and Nursing notes reviewed No hx of anesthetic complications Airway Mallampati: II TM distance: >3 FB Neck ROM: full Dental - normal exam Pulmonary - negative ROS and normal exam breath sounds clear to auscultation Cardiovascular - negative ROS and normal exam Exercise tolerance: good (-) hypertension, CAD, dysrhythmias, angina, orthopnea and PALMER Rhythm: regular Rate: normal Neuro/Psych Comments: MIgranes Depression GI/Hepatic/Renal - negative ROS (-) hiatal hernia and GERD Endo/Other (+) hyperthyroidism, Abdominal - normal exam Anesthesia Plan ASA 2 General with intravenous induction Anesthetic plan and risks discussed with patient, father and mother. Use of blood products discussed with and consented by patient. Plan discussed with LEGAL EXECUTIVE ASSISTANT. documented in this encounter Plan of Treatment Upcoming Encounters Date Type Department Care Team (Late st Contact Info) Description 05/23/2024 Hospital [place] [address] Maite Malloy MD [facility] OBSTETRICS [place] [address] documented as of this encounter Visit Diagnoses Not on filedocumented in this encounter Care Teams Pet Care Technician Relationship Specialty Start Date End Date None None PCP - General 02/23/11 05/09/11 documented as of this encounter
--- OUTSIDE RECORDS SUMMARY | 2023-10-29 04:03 | XMS_ITS | Encounter Summary ---
Author Organization [facility] [place] [address] Care Team Providers Care Video Conference Specialist Name Role Phone None Primary Care Provider Unavailabl e Reason for Visit * Reason Comments Other Thyroid Nodule Encounter Details Date Type Department Care Team (Late st Contact Info) Description 03/08/2011 10:30 AM EST Office [place] [phone] Marlo Ko MD [facility] [place] [address] Thyroid nodule (Primary Dx) Discharge Disposition: Home [...] Sign Reading Time Taken Comments Blood Pressure 145/82 03/08/2011 10:32 AM EST Pulse 75 03/08/2011 10:32 AM EST Temperature - - Respiratory Rate 16 03/08/2011 10:32 AM EST Oxygen Saturation 98% 03/08/2011 10:32 AM EST Inhaled Oxygen Concentration - - Weight 92.1 kg (203 lb) 03/08/2011 10:32 AM EST Height 173 cm (5' 8.11) 03/08/2011 10:32 AM EST Body Mass Index 30.77 03/08/2011 10:32 AM EST documented in this encounter Progress Notes * Marlo Ko MD - 03/08/2011 12:02 PM EST See H&P in Surgical Consult on 03/08/2011. documented in this encounter H&P Notes * Marlo Ko MD - 03/08/2011 12:03 PM EST [...] satisfactory. ---Cytopathologic Diagnosis--- Atypical 02/24/11 Screened by: MARCO A Rescreened by: CECY SANTOS 03/01/11 Verified by: [...] on physical exam. ROS: No H/O asthma, [place], stroke, pulmonary embolus or phlebitis. Comprehensive review [...] agrees to proceed. Will sign in through SDS. Consent is signed. Send copy to Dr. Novak and Teena. documented in this encounter Plan of Treatment Upcoming Encounters Date Type Department Care Team (Late st Contact Info) Description 05/23/2024 Hospital [place] [address] Maite Malloy MD [facility] [address] OBSTETRICS [place] [address] documented as of this encounter Procedures Procedure Name Priority Date/Time Associated Diagnosis Comments THYROIDECTOMY,FOR MALIGNANCY, LIMITED NECK DISSECTION Routine 03/08/2011 11:10 AM EST documented in this encounter Visit Diagnoses Diagnosis Thyroid nodule- Primary Nontoxic uninodular goiter documented in this encounter Care Teams Video Conference Specialist Relationship Specialty Start Date End Date None None PCP - General 02/23/11 05/09/11 documented as of this encounter
--- OUTSIDE RECORDS SUMMARY | 2023-10-29 04:03 | XMS_ITS | Encounter Summary ---
Author Organization [facility] [address] Care Team Providers Care Film Technician Name Role Phone None Primary Care Provider Unavailabl e Reason for Visit * Reason Onset Date Comments Thyroid Problem 02/28/2011 Encounter Details Date Type Department Care Team ([facility] st Contact Info) Description 02/28/2011 Telephone [place] [phone] Jona Dickinson MD [address] [place] [address] Thyroid Problem Social History Tobacco Use Types Packs/Day Years Used Date Smoking Tobacco: Never Sex and Gender Information Value Date Recorded Sex Assigned at Female 10/12/2023 9:44 AM EDT Gender Identity Female 10/12/2023 9:44 AM EDT Sexual Orientation Straight 10/12/2023 9: 44 AM EDT documented as of this encounter Miscellaneous Notes * Telephone Encounter - Omayra Meredith LPN - 03/07/2011 7:58 AM EST Returning call to mother from 03/06/11 @ 10:00 at which time message from Dr Dickinson was read to her. She states patient has appointment with Dr Ko on 03/08/11. * Telephone Encounter - Omayra Meredith LPN - 03/02/2011 9:38 AM EST Patient calls at which time message from Dr Zambrano was read to her. Patient asks that a surgical referral be placed for her. Notes Recorded by Jona Dickinson MD on 03/01/2011 at 1:43 PM Biopsy is indeterminate because of the cellular pattern. There are about five different types of nodules that can yield biopsy results like this. Three are benign. Two are malignant. Surgical pathology is required to tell them apart - needle sampling simply cannot. At [facility], this result is associated with an 18% chance of malignancy being diagnosed with surgical pathology. Other institutions around the country report similar results. Recommend thyroidectomy for definitive diagnosis (and therapy in the event this is malignant). * Telephone Encounter - Omayra Meredith LPN - 03/02/2011 9:12 AM EST Patient calls at which time she was told that results are available but that I do not have a message for her from Dr Dickinson as of yet. * Telephone Encounter - Jona Dickinson MD - 03/01/2011 10:30 AM EST It was not me. Cytology is still pending (03/01/11@1030) * Telephone Encounter - Omayra Meredith LPN - 03/01/2011 8:32 AM EST Called mother this am but spoke with father at which time I told him that after once again receiving a message on voice from patient at 3:35pm(which was taken off my voice mail this am) I was able tomatch telephone numbers and realized it was me who had left message on her voice mail to please return my call. But that I did not know who I was returning call to because I was only able to understand phone number because patient speaks so fast. Therefore I had left message to return my call and spell her name so I would know who was trying to reach me. Father states Thank you so much for calling and talking with me. I know you are not supposed to but, my daughter does not have good coping skills and is not coping well with the implications from all of this. * Telephone Encounter - Omayra Meredith LPN - 02/28/2011 4:34 PM EST Mother calls for daughter who she states received a voice message from endocrinology sometime between 1 and 3pm to return their call at [phone]. She became very upset and had to leave work. Mother does not have name of person or if male or female. I told mother that I can not figure out who called patient will forward to Dr Dickinson who is not here at this time to ask if he called the patient. * Telephone Encounter - Omayra Meredith LPN - 02/28/2011 11:57 AM EST Returning call to patient from yesterday asking for test results. Patient was told that as of yet FNA of thyroid results are not available. documented in this encounter Plan of Treatment Upcoming Encounters Date Type Department Care Team (Late st Contact Info) Description 05/23/2024 Hospital [place] [address] Maite Malloy MD [facility] OBSTETRICS [place] [address] documented as of this encounter Visit Diagnoses Not on filedocumented in this encounter Care Teams Film Technician Relationship Specialty Start Date End Date None None PCP - General 02/23/11 05/09/11 documented as of this encounter
--- OUTSIDE RECORDS SUMMARY | 2023-10-29 04:03 | XMS_ITS | Encounter Summary ---
Author Organization [facility] Address [address] [place] [address] Care Team Providers Care Agency Service Coordinator Name Role Phone None, Provider Primary Care Provider Tatum Marcelino MD Unavailable [phone] Encounter Details Date Type Department Care Team (Late st Contact Info) Description 05/31/2021 Lab Requisition [facility] Pathology & Laboratory Medicine - [address] [phone] Outr Resulting Lab, Provider Social History Tobacco [...] Procedure Name Priority Date/Time Associated Diagnosis Comments IGA Routine 05/31/2021 10:55 EST IGG Routine 05/31/2021 10:55 EST documented in this encounter Results * (ABNORMAL) IGA (05/31/2021 10:55 EST) IgA 36(L) 85 - 499 mg/dL 06/01/2021 9:05 EST [facility] Blood VENOUS BLOOD / Unknown 05/31/2021 10:55 EST 05/31/2021 21:35 EST Provider Outr Resulting Lab CHEMISTRY & BLOOD GAS ORDERABLES [facility] [address] [place] [address] * IGG (05/31/2021 10:55 EST) IgG 738 610-1,616 mg/dL 06/01/2021 9:05 EST [facility] Blood VENOUS BLOOD / Unknown 05/31/2021 10:55 EST 05/31/2021 21:35 EST Provider Outr Resulting Lab CHEMISTRY & BLOOD GAS ORDERABLES Performing Organization Address [facility] de Phone Number [facility] [address] [place] [address] documented in this encounter Visit Diagnoses Not on filedocumented in this encounter Care Teams Agency Service Coordinator Relationship Specialty Start Date End Date None, Provider PCP - General 09/08/13 Tatum Lugo MD [address] [place] [phone] 09/08/13 documented as of this encounter
--- OUTSIDE RECORDS SUMMARY | 2023-10-29 04:03 | XMS_ITS | Referral Summary ---
Author Organization [facility] Address [address] [place] [address] Care Team Providers Care Mobile Designer Name Role Phone None, Provider Primary Care Provider Tatum Marcelino MD Unavailable [phone] Allergies Active Allergy Reactions Criticality Noted [...] on file Sexual Orientation Not on file Last Filed Vital Signs Vital Sign Reading Time Taken Comments Blood Pressure 118/61 09/08/20131950 EDT Pulse 99 09/08/20131950 EDT Temperature 36.6 ??C (97.9 ??F) 09/08/20131950 EDT Respiratory Rate 18 09/08/20131950 EDT Oxygen Saturation 99% 09/08/20131950 EDT Inhaled Oxygen Concentration - - Weight - - Height - - Body Mass Index - - Plan of Treatment Not on file Procedures Procedure Name Priority Date/Time Associated Diagnosis [...] ? ANDREE ROJAS ? Accession #: ? [id number] : ? 1990 (Age: 26) ??F ?Collect Date: ? 05/21/2017 Location: ? [facility] ? Receive Date: ? 05/23/2017 Provider: ?RUSSELL VIVEROS ORGAN GRINDER-BC Copy to: ? Specimen/Source: ?Pap Test, Cervix, [...] Report Date: ??05/29/2017 10:03 End of Report [facility] 05/21/2017 05/23/2017 Russell Warner ORGAN GRINDER-BC PATHOLOGY ORDERA SAMUELS [facility] [address] [place] [address] from Last 3 Months or Most Recently Relevant to Health Maintenance Care Teams Mobile Designer Relationship Specialty Start Date End Date None, Provider PCP - General 09/08/13 Tatum Lugo MD [address] [place] [phone] 09/08/13
--- OUTSIDE RECORDS SUMMARY | 2023-10-29 04:03 | XMS_ITS | Encounter Summary ---
Author Organization [facility] Address [address] [place] [address] Care Team Providers Care Dispatcher Electric Power Name Role Phone Unavailable Primary Care Provider Unavailabl e Encounter Details Date Type Department Care Team (Late st Contact Info) Description 04/29/2007 8:27 [facility] Hospital Encounter [address] [address] Harsha Kingston MD [address] [place] [phone] Social History Tobacco Use Types Packs/Day Years [...]
--- OUTSIDE RECORDS SUMMARY | 2023-10-29 04:03 | XMS_ITS | Encounter Summary ---
Author Organization [facility] Address [address] [place] [address] Care Team Providers Care Organizational Development Specialist Name Role Phone None, Provider Primary Care Provider Tatum Marcelino MD Unavailable [phone] Encounter Details Date Type Department Care Team (Late st Contact Info) Description 01/30/2020 Lab Requisition [facility] Pathology & Laboratory Medicine - [address] [address] Outr Resulting Lab, Provider Social History Tobacco [...] Procedure Name Priority Date/Time Associated Diagnosis Comments ZZCOVID-19 TEST [facility] PCR Today 01/30/2020 9:58 EDT COVID-19 TESTING Routine 01/30/2020 9:58 EDT documented in this encounter Results * COVID-19 TEST [facility] PCR (01/30/2020 9:58 EDT) Swab ENTIRE NASOPHARYNX / Unknown 01/30/2020 9:58 EDT 01/30/2020 15:44 EDT Provider Outr Resulting Lab MICROBIOLOGY - GENERAL ORDERABLES [facility] [address] [place] [address] * COVID-19 TESTING (01/30/2020 9:58 EDT) COVID-19 rt-PCR Result Negative Negative 01/31/2020 1:45 EDT [facility] Comment: This test has not been FDA cleared or approved. This test has been authorized by FDA under an EUA for use by authorized laboratories. This test has been authorized only for detection of nucleic acid from 2019-nCoV, not for any other viruses or pathogens. This test is only authorized for the duration of the declaration that circumstances exist justifying the authorization of emergency use of in vitro diagnostic tests for detection and/or diagnosis of 2019-nCoV under section 564(b)(1) of Act, 21 U.S.C ?? 360bbb-3(b) (1), unless the authorization is terminated or revoked sooner. Negative results do not preclude 2019-nCoV infection and should not be used as the sole basis for treatment or other patient management decisions. Negative results must be combined with clinical observations, patient history, and epidemiological information. Performed on the [employer] Fusion instrument Performing Lab [facility] 01/31/2020 1:45 EDT [facility] Swab 01/30/2020 9:58 EDT 01/30/2020 15:44 EDT Provider Outr Resulting Lab MICROBIOLOGY - GENERAL ORDERABLES [facility] [address] [place] [address] documented in this encounter Visit Diagnoses Not on filedocumented in this encounter Care Teams Organizational Development Specialist Relationship Specialty Start Date End Date None, Provider PCP - General 09/08/13 Tatum Lugo MD [address] [place] [phone] 09/08/13 documented as of this encounter
--- OUTSIDE RECORDS SUMMARY | 2023-10-29 04:03 | XMS_ITS | Encounter Summary ---
Author Organization [facility] Address [address] [place] [address] Care Team Providers Care Mail Sorter And Delivery Name Role Phone None, Provider Primary Care Provider Tatum Marcelino MD Unavailable [phone] Encounter Details Date Type Department Care Team (Late st Contact Info) Description 09/17/2014 Results Only [facility] [phone] Dee Dee Shukla, [facility] [address] [place] [phone] Social History Tobacco Use Types Packs/Day Years [...] Diagnosis Comments PAP TEST- RESULT ONLY Routine 09/17/2014 0:00 EDT documented in this encounter Results * PAP TEST- RESULT ONLY (09/17/2014 0:00 EDT) Pathology Report: CYTOPATHOLOGY REPORT Reports generated via electronic interface contain original data; however they are lacking the format of the original report. Caution should be taken when reading/interpreti ng unformatted reports. Name: ? ANDREE ROJAS ? Accession #: ? [id number] : ? 1990 (Age: 24) ??F ?Collect Date: ? 09/17/2014 Location: ? [facility] ? Receive Date: ? 09/18/2014 Provider: ?DEE DEE SHUKLA COMMERCIAL ACCOUNT MANAGER Copy to: ? Specimen/Source: ?Pap Test, Cervix/Endocervix, ThinPrep Imaging System with manual evaluation Last Menstrual Period: ? 09/07/14 Hormonal/Contracep tive Status: ? Yes: Implanon ? SPECIMEN ADEQUACY ? Satisfactory for Evaluation - transformation zone component present GENERAL CATEGORIZATION ? Negative for Intraepithelial Lesion or Malignancy INTERPRETATION ? Shift in ike present suggestive of bacterial vaginosis. ? Document reviewed and electronically signed by: ? KAY Jenkins(ASCP) ? Report Date: ??09/24/2014 08:02 End of Report [facility] 09/17/2014 09/18/2014 Dee Dee Shukla COMMERCIAL ACCOUNT MANAGER PATHOLOGY ORDERABLES [facility] [address] [place] [address] documented in this encounter Visit Diagnoses Not on filedocumented in this encounter Care Teams Mail Sorter And Delivery Relationship Specialty Start Date End Date None, Provider PCP - General 09/08/13 Tatum Lugo MD [address] [place] [phone] 09/08/13 documented as of this encounter
[2023-10-29 14:28] LABS: HCG Quant, Pregnancy 46514 mIU/mL (1-3)
== END 2023-10-29 03:57 | disposition home or self-care (01) ==
LOC: LBO 03:56
PROVIDERS: PCP Nurse Practitioner Family; Visit Provider Student in an Organized Health Care Education/Training Program
DX: O36.80X0 Pregnancy with inconclusive fetal viability, not applicable or unspecified (principal)
CPT/HCPCS: 36415; 84702

== ENCOUNTER 2023-10-31 03:17 | Outpatient (CLI) | payer MEDICAID, SELFPAY ==
--- OUTSIDE RECORDS SUMMARY | 2023-10-31 03:18 | XMS_ITS | Encounter Summary ---
[place] [address] Care Team Providers Care Build And Release Manager Name Role Phone Richard Rasheed MD Primary Care Provider [phone] Reason for Referral * Psychiatric (Routine) - Closed Specialty Diagnoses / Procedures Referred By Contwillow t Referred To Contact Psychiatry Diagnoses Bipolar affective disorder, current episode mixed, current episode severity unspecified Richard Rasheed MD [address] [place] [address] [facility] [place] [address] Referral ID Status Reason Start Date Expiration Date V isits Requested Visits Authorized [id number] Closed Consult, Test & Treat PCP Updated and/or Approved 07/05/2023 07/04/2024 6 6 Encounter Details Date Type Department Care Team (Latest Contact Info) Description 07/05/2023 Transcribe Orders eDH Incoming Referrals [phone] Richard Rasheed MD [address] [place] [address] Bipolar affective disorder, current episode [...] Care Team (Late st Contact Info) Description 11/08/2023 1:45 PM EDT Appointment Ultrasound at [place] [phone] Kelsea Shafer MD [facility] OBSTETRICS [place] [address] 11/08/2023 3:00 PM EDT Routine Obstetrics and Gynecology at [place] [phone] Ab, Lexii Khan, CNM [facility] [place] [address] 05/23/2024 [place] [address] Maite Malloy MD [facility] OBSTETRICS [place] [address] Scheduled Referrals Name Type Priority Associated Diagnoses Orde r Schedule Referral to Adult Psychiatry Outpatient Referral Routine Bipolar affective disorder, current episode mixed, current episode severity unspecified Ordered: 07/05/2023 documented as of this encounter Visit Diagnoses Diagnosis Bipolar affective disorder, current episode mixed, current episode severity unspecified documented in this encounter Care Teams Build And Release Manager Relationship Specialty Start Date End Date Richard Rasheed MD [address] [place] [address] PCP - General Family Medicine 07/05/23 documented as of this encounter
--- OUTSIDE RECORDS SUMMARY | 2023-10-31 03:18 | XMS_ITS | Encounter Summary ---
Author Organization [facility] Address [facility] [place] [address] Care Team Providers Care Petroleum Laboratory Technician Name Role Phone Richard Rasheed MD Primary Care Provider [phone] Encounter Details Date Type Department Care Team [...] from your doctor or pharmacy? Never 10/12/2023 [facility] Utilities Answer Date Recorded In the past 12 months has e [employer], gas, oil, or water [employer] threatened to shut off services in your [...] any time in the past 12 m [facility], were you homeless or living in a residential (including now)? Yes 10/12/2023 Estimated Date of [...] 11/08/2023 1:45 PM ED[place] [phone] Kelsea Shafer MD [facility] OBSTETRICS [place] [address] 11/08/2023 3:00 PM EDT Routine [place]stetrics [place] [phone] Lexii Berger CNM [facility] [place] [address] 05/23/2024 Hospital Encounter Birthing [facility] [place] [phone] Maite Malloy MD [facility] DR OBSTETRICS [place] [address] documented as of this encounter Visit Diagnoses Not on filedocumented in this encounter Care Teams Petroleum Laboratory Technician Relationship Specialty Start Date End Date Richard Rasheed MD [address] [place] [address] PCP - General Family Medicine 07/05/23 documented as of this encounter
--- OUTSIDE RECORDS SUMMARY | 2023-10-31 03:18 | XMS_ITS | Encounter Summary ---
Author Organization [facility] Address [facility] [place] [address] Care Team Providers Care Circular Distributor Name Role Phone OnofreMarilyn pittshryn Oralia SLADE Primary Care Provider [phone] Encounter Details Date Type Department Care Team (Late st Contact Info) Description 04/13/2023 Orders Only Obstetrics [place] [address] Jody Wood, RN Vaginal bleeding in , first trimester [...] 11/08/2023 1:45 PM EDT Appointment [place] [address] Kelsea Shafer MD [facility] [address] OBSTET[place] [address] 11/08/2023 3:00 PM EDT Routine Obstetrics [place] [address] Lexii Berger [place]M [facility] [address] 05/23/2024 Hospital Encounter Birthing [facility] [place] [phone] Maite Malloy MD [facility] [place] [address] Scheduled Orders Name Type Priority Associated Diagnoses Orde r Schedule Type and screen ([facility] Lab Routine Vaginal bleeding in , first trimester Expected: 04/13/2023, Expires: 10/13/2023 documented as of this encounter Visit Diagnoses Diagnosis Vaginal bleeding in , first trimester documented in this encounter Care Teams Circular Distributor Relationship Specialty Start Date End Date Valencia Adhikari APRN [address] [place] [address] PCP - General 04/21/14 07/04/23 documented as of this encounter
--- OUTSIDE RECORDS SUMMARY | 2023-10-31 03:18 | XMS_ITS | Encounter Summary ---
Author Organization [facility] [address] [facility] [place] [address] Care Team Providers Care Patient Care Secretary Name Role Phone Richard Rasheed MD Primary Care Provider [phone] Encounter Details Date Type Department Care Team (Late st Contact Info) Description 07/22/2023 Telephone Obstetrics [place] [address] Heavenly Blackmon MD [facility] DR OBSTETRICS & [place] [address] Social History Tobacco Use Types Packs/Day Years [...] 11/08/2023 1:45 PM EDT Appointment Ultrasound at [place] [phone] Kelsea Shafer MD [facility] OBSTETRICS [place] [address] 11/08/2023 3:00 PM EDT Routine Obstetrics [place] [address] Ab, Lexii C, CNM [facility] [place] [address] 05/23/2024 Hospital Encounter Birthing [place] [phone] Maite Malloy MD [facility] OBSTETRICS [place] [address] documented as of this encounter Visit Diagnoses Not on filedocumented in this encounter Care Teams Patient Care Secretary Relationship Specialty Start Date End Date Richard Rasheed MD [address] [place] [address] PCP - General Family Medicine 07/05/23 documented as of this encounter
--- OUTSIDE RECORDS SUMMARY | 2023-10-31 03:18 | XMS_ITS | Encounter Summary ---
Author Organization [facility] Address [facility] [place] [address] Care Team Providers Care Journeyman Pressman Name Role Phone Richard Rasheed MD Primary Care Provider Encounter Details Date Type Department Care Team (Late Contact Info) Description 08/15/2023 Telephone Obstetrics [place] [address] Sarah Tejeda Social History Tobacco [...] 11/08/2023 1:45 PM EDT [place] [address] Kelsea Shafer MD [facility] OBSTETRICS [place] [address] 11/08/2023 3:00 PM EDT Routine Obstetrics [place] [address] Lexii Berger CNM [facility] [place] [address] 05/23/2024 Hospital Encounter Birthing [facility] [phone] Maite Malloy MD [facility] OBSTETRICS [place] [address] documented as of this encounter Visit Diagnoses Not on filedocumented in this encounter Care Teams Journeyman Pressman Relationship Specialty Start Date End Date Richard Rasheed MD [address] [place] [address] PCP - General Family Medicine 07/05/23 documented as of this encounter
--- OUTSIDE RECORDS SUMMARY | 2023-10-31 03:18 | XMS_ITS | Encounter Summary ---
Author Organization Counts Include [facility] Address [facility] [place] [address] Care Team Providers Care Over The Road Driver Name Role Phone Richard Rasheed MD Primary Care Provider [phone] Encounter Details Date Type Department Care Team (Late Contact Info) Description 08/13/2023 Telephone Obstetrics [place] [address] Sarah Tejeda Social History Tobacco [...] 11/08/2023 1:45 PM EDT [place]oint[place] [address] Kelsea Shafer MD [facility] OBSTETRICS [place] [address] 11/08/2023 3:00 PM EDT Routine Obstetrics [place] [address] Lexii Berger CNM [facility] [place] [id number] 05/23/2024 Hospital Encounter Birthing [place] [place] [phone] Maite Malloy MD [facility] OBSTETRICS [place] [address] documented as of this encounter Visit Diagnoses Not on filedocumented in this encounter Care Teams Over The Road Driver Relationship Specialty Start Date End Date Richard Rasheed MD [address] [place] [address] PCP - General Family Medicine 07/05/23 documented as of this encounter
--- OUTSIDE RECORDS SUMMARY | 2023-10-31 03:18 | XMS_ITS | Encounter Summary ---
Author Organization Replaced By [facility] Address [facility] [place] [address] Care Team Providers Care Admission Nurse Coordinator Name Role Phone Richard Rasheed MD Primary Care Provider [phone] Encounter Details Date Type Department Care Team (Late st Contact Info) Description 10/26/2023 Telephone Obstetrics [place] [phone] Tye Gamble MD [facility] DR OBSTETRICS [place] [address] Social History Tobacco Use Types Packs/Day Years [...] from your doctor or pharmacy? Never 10/12/2023 [facility] Utilities Answer Date Recorded In the past 12 months has [facility] [employer], gas, oil, or water [employer] threatened to shut off services in your [...] any time in the past 12 m [facility], were you homeless or living in a longterm (including now)? Yes 10/12/2023 Estimated Date of [...] 11/08/2023 1:45 PM EDT Appointment Ultrasound at [place] [phone] Kelsea Shafer MD [facility] OBSTETRICS [place] [address] 11/08/2023 3:00 PM EDT Routine Obstetrics [place] [address] Ab, Lexii Khan, CNJose [facility] [place] [address] 05/23/2024 Hospital Encounter Birthing [place] [phone] Maite Malloy MD [facility] OBSTETRICS [place] [address] documented as of this encounter Visit Diagnoses Not on filedocumented in this encounter Care Teams Admission Nurse Coordinator Relationship Specialty Start Date End Date Richard Rasheed MD [address] [place] [address] PCP - General Family Medicine 07/05/23 documented as of this encounter
--- OUTSIDE RECORDS SUMMARY | 2023-10-31 03:18 | XMS_ITS | Encounter Summary ---
Author Organization [facility] Address [facility] [place] [address] Care Team Providers Care Orthodontist Name Role Phone Richard Rasheed MD Primary Care Provider [phone] Encounter Details Date Type Department Care Team (Late st Contact Info) Description 10/19/2023 [place] [phone] Tye Gamble MD [facility] OBSTETRICS [place] [address] Social History Tobacco Use Types Packs/Day Years [...] In the past 12 months has e [employer], gas, oil, or water [employer] threatened to shut off services in your [...] any time in the past 12 m [facility], were you homeless or living in a care home (including now)? Yes 10/12/2023 Estimated Date of [...] (10/11, 10/14) and [facility] in 2 weeks. [facility] message sent to patient earlier this week with reminder to complete beta hcg. Andree reports that she is doing well at this time, denies any further vaginal bleeding or spotting. Tried to get lab drawn at [facility] this week, however was told she needed to get first measurement at [facility] (lab requisition already sent to [facility], with no specification on where/when lab needs [...] 11/08/2023 1:45 PM EDT Appointment [place] [address] Klesea Shafer MD [facility] [place]ST[place]ICS [place] [address] 11/08/2023 3:00 PM EDT Routine Obstetrics [place] [phone] Ab, Lexii Khan CNM [facility] [place] [address] 05/23/2024 Hospital En[facility] [place] [phone] Maite Malloy MD [facility] DR OBSTET[place]ICS [place] [address] documented as of this encounter Visit Diagnoses Not on filedocumented in this encounter Care Teams Orthodontist Relationship Specialty Start Date End Date Richard Rasheed MD [address] [place] [address] PCP - General Family Medicine 07/05/23 documented as of this encounter
--- OUTSIDE RECORDS SUMMARY | 2023-10-31 03:18 | XMS_ITS | Encounter Summary ---
Author Organization [facility] Address [facility] [place] [address] Care Team Providers Care Independent Living Specialist Name Role Phone Richard Rasheed MD Primary Care Provider [phone] Encounter Details Date Type Department Care Team (Late st Contact Info) Description 10/12/2023 10:20 AM EDT Initial Obstetrics [place] [address] Tye Gamble MD [facility] [address] OBSTETRICS [place] [address] GA: 5w1d Social History Tobacco Use Types [...] from your doctor or pharmacy? Never 10/12/2023 [facility] Utilities Answer Date Recorded In the past 12 months has e [employer], gas, oil, or water [employer] threatened to shut off services in your [...] any time in the past 12 m [facility], were you homeless or living in a alf (including now)? Yes 10/12/2023 Estimated Date of [...] Result date Tests and Procedures Follow-ups 08/04/2020 (Order#[id number]) Trash Truck Driver Cytology Final Report *Pap Smear: NILM ROLL SLICING MACHINE TENDER CYTOLOGY FINAL REPORT: View Details in Report [...] MONITORING, SETUP performed by JUAN ESPARZA at [facility] MAIN OR PRO THYROIDECTOMY, NYDIA, LTD NECK SURG 03/22/2011 THYROIDECTOMY, FOR MALIGNANCY, LIMITED NECK DISSECTION performed by JUAN ESPARZA at [facility] MAIN OR TONSILLECTOMY 2010 UPPER GASTROINTESTINAL ENDOSCOPY [...] a external lab requisition was sent to [facility]. Will add to beta list given bleeding present a few days ago (now resolved). Plan to schedule ultrasound in approximately 1-2 weeks pending beta hcg trend. Bleeding and ectopic precautions reviewed - she is aware to present more emergently to care with increased vaginal bleeding or abdominal pain. This has been complicated by: History of delivery @31w ([facility]), @21w (at home). Consider cervical [...] to be placed in contact with RENETTA Cnote Routine care: Patient oriented to practice Routine [...] 11/08/2023 1:45 PM EDT Appointment [place] [address] Paul Mendez MD [facility] [address] [place] [address] 11/08/2023 3:00 PM EDT Routine Obstetrics [place] [address] Ab, Lexii C, CNM [facility] [place] [address] 05/23/2024 Hospital Encounter Birthing Bet[facility] [place] [address] Maite Malloy MD [facility] OBSTETRICS [place] [address] Scheduled Orders Name Type Priority Associated Diagnoses [...] Clean Catch Urine (10/12/2023 10:20 AM EDT) Urine Culture 10,000-49,000 cfu/ml mixed mucosal ike Note: Culture shows multiple bacterial species suggesting mucosal contamination. (A) [facility] Clean Catch Urine 10/12/2023 10:20 AM EDT 10/12/2023 11:53 AM EDT Narrative Resulting Agency Comment Spec In Lab Paul Mendez MD MICROBIOLOGY - GENE RAL ORDERABLES Performing Organization Address City/[facility]/ZIP Co de Phone Number [facility] [place] [address] * GC/Chlamydia Vaginal (10/12/2023 10:20 AM EDT) GC Gene Amp Negative Negative [facility] Comment: Eye specimens are not an FDA-cleared source for this testing. The performance of this assay with eye specimens has been validated in-house. GC Source Vaginal [facility] Chlamydia Gene Amp Negative Negative [facility] Comment: Eye specimens are not an FDA-cleared source for this testing. The performance of this assay with eye specimens has been validated in-house. Chlamydia Source Vaginal [facility] Vaginal 10/12/2023 10:2 0 AM EDT 10/12/2023 11:54 AM EDT Narrative Resulting Agency Comment Spec In Lab Paul Mendez MD MICROBIOLOGY - GENE RAL ORDERABLES Performing Organization Address [facility]/ZIP Co de Phone Number [facility] [place] [address] * POCT urine (10/12/2023) POC Urine HCG [...] disorder documented in this encounter Care Teams Independent Living Specialist Relationship Specialty Start Date End Date Richard Rasheed MD [address] [place] [address] PCP - General Family Medicine 07/05/23 documented as of this encounter
--- OUTSIDE RECORDS SUMMARY | 2023-10-31 03:18 | XMS_ITS | Encounter Summary ---
Author Organization [facility] [place] [address] Care Team Providers Care Sharepoint Admin Name Role Phone Richard Rasheed MD Primary Care Provider [phone] Encounter Details Date Type Department Care Team (Late st Contact Info) Description 10/23/2023 Telephone [place]stetrics [place] [address] Natalia Bravo, RN Social History [...] from your doctor or pharmacy? Never 10/12/2023 [facility] Utilities Answer Date Recorded In the past [address] [facility] [email or web address], [employer], oil, or water [employer] threatened to shut off services in your [...] any time in the past 12 m [facility], were you homeless or living [...] answer and VM box full. Sent a Apps[employer] message to follow up/make a plan for a call. documented in this encounter Plan of Treatment Upcoming Encounters Date Type Department Care Team (Late st Contact Info) Description 11/08/2023 1:45 PM EDT Appointment Ultrasound at [place] [phone] Kelsea Shafer MD [facility] [place] [address] 11/08/2023 3:00 PM EDT Routine Obstetrics and Gynecology at [place] [phone] Ab, Lexii Khan, CNM [facility] [place] [address] 05/23/2024 Hospital Encounter Birthing [place] [phone] Maite Malloy MD [facility] [place] [address] documented as of this encounter Visit Diagnoses Not on filedocumented in this encounter Care Teams Sharepoint Admin Relationship Specialty Start Date End Date Richard Rasheed MD [address] [place] [address] PCP - General Family Medicine 07/05/23 documented as of this encounter
--- OUTSIDE RECORDS SUMMARY | 2023-10-31 03:18 | XMS_ITS | Clinical Summary ---
Author Organization [facility] Address [facility] [place] [address] Care Team Providers Care Cyber Engineer Name Role Phone Richard Rasheed MD Primary Care Provider [phone] Allergies Active Allergy Reactions Criticality Noted Date [...] (05/22/2012): Team MFM transfer of care from [facility] Delivery plan GBS date & Result Cystic [...] Description 10/26/2023 Telephone Obstetrics [place] [address] Tye Gamble MD 10/23/2023 Telephone [place]st[place] [address] Natalia Bravo RN 10/19/2023 Telephone SHEARER HELPER [place] [phone] yTe Gamble MD 10/12/2023 10:20 AM EDT Initial Obstetrics [place] [address] Tye Gamble MD GA: 5w1d 10/12/2023 Travel 08/15/2023 Telephone Obstetrics and Gynecology at [place] [phone] Sarah Tejeda 08/13/2023 Telephone [place]etric[place] [address] Sarah Tejeda from Last 3 Months Immunizations [...] from your doctor or pharmacy? Never 10/12/2023 [facility] Utilities Answer Date Recorded In the [...] any time in the past 12 m [facility], were you homeless or living in a [...] 11/08/2023 1:45 PM EDT Appointment Ultrasound at [place] [phone] [facility] OBSTETRICS AND GYNECOLOGY [place] [phone] 11/08/2023 3:00 PM EDT Routine Obstetrics [place] [address] Ab, Lexii C, CNM [facility] [place] [address] 05/23/2024 Hospital Encounter Birthing [place] [phone] [facility] OBSTETRICS AND GYNECOLOGY [place], [place] [phone] Health Maintenance Due Date Last Done Comments Pneumococcal Vaccine: At-Ris k 5-64yrs (1 of 2 - PCV) 06/15/1997 Hepatitis C Screening 06/15/2009 Lipid Screening 06/15/2009 Hepatitis B vaccine (0-59 yrs) (1) 06/15/2010 Tdap adult 06/15/2010 Tetanus vaccine 06/15/2010 Covid-19 Vaccine (1 - 2022-24 season) 2022 PAP Smear 08/05/2023 08/04/2020 Influenza [...] URINE Routine 10/12/2023 care in first trimester [facility] CYTOLOGY FINAL REPORT Routine 08/04/2020 10:25 AM EDT HIV AB/AG RAPID TEST ([facility]) Routine 09/03/2012 7:45 PM EDT from Last 3 Months or Most Recently Relevant to Health Maintenance Results * GC/Chlamydia Vaginal (10/12/2023 10:20 AM EDT) GC Gene Amp Negative Negative [facility] Comment: Eye specimens are not an FDA-cleared source for this testing. The performance of this assay with eye specimens has been validated in-house. GC Source Vaginal [facility] Chlamydia Gene Amp Negative Negative [facility] Comment: Eye specimens are not an FDA-cleared source for this testing. The performance of this assay with eye specimens has been validated in-house. Chlamydia Source Vaginal [facility] Vaginal 10/12/2023 10:2 0 AM EDT 10/12/2023 11:54 AM EDT Narrative Resulting Agency Comment Spec In Lab Kelsea Shafer MD MICROBIOLOGY - GENE RAL ORDERABLES Performing Organization Address [facility] Co de Phone Number [facility] [place] [address] * (ABNORMAL) Urine culture Clean Catch Urine (10/12/2023 10:20 AM EDT) Pathologist [facility] Urine Culture 10,000-49,000 cfu/ml mixed mucosal ike Note: Culture shows multiple bacterial species suggesting mucosal contamination. (A) [facility] Clean Catch Urine 10/12/2023 10:20 AM EDT 10/12/2023 11:53 AM EDT Narrative Resulting Agency Comment Spec In Lab Kelsea Shafer MD MICROBIOLOGY - GENE RAL ORDERABLES Performing Organization Address [facility] [place] [address] * POCT urine (10/12/2023) Pathologist [facility] POC Urine HCG Positive POC Control Internal Controls Acceptable Armida Leroy MD POINT OF CARE TEST O RDERABLES * Data Entry Email Processor Cytology Final Report (08/04/2020 10:25 AM EDT) Pathologist [facility] Data Entry Email Processor Cytology Final Report [id number] ? Location: 5L The signing pathologist has (i) examined the relevant preparation(s) for the specimen(s) and (ii) rendered or confirmed the diagnosis(es). . ? Data Entry Email Processor Final DIAGNOSIS Infection and/or Reactive Repair Process Note: Reactive changes are present in the epithelial cells (benign cellular changes). This Pap test is negative for intraepithelial lesion or malignancy. (NILM) For consensus guidelines for the management of cervical cancer screening test results, please see: ?? http://www.asccp.o rg . Electronically signed by: ?Reji Sandoval MD Verified: ??08/16/2020 12:02 ??Cytopathologist Performed at: ??-[facility] Dept. of Pathology, [place], [place] HPV RESULTS HPV testing either not indicated or not requested by clinician. STATEMENT OF ADEQUACY Specimen submitted is satisfactory. Endocervical component present. CLINICAL INFORMATION HPV Option: ?Reflex HPV CT/NG Option: ?Yes Preparation: ? Liquid based Pap Specimen Source: ? Cervical/Endocervi shira LMP: ? IUD Hysterectomy: ?No : ?No : ?No I.U.D.: ?No Pelvic Radiation: ?No Hist Abnl Pap/Biopsy: ?No Prior [facility] WOMEN Therapy: ? No Hist of HPV Vaccine: ? No ICD Diagnosis: ? Z12.4 Encounter for screening for malignant neoplasm of cervix Clinical Data, Significant Therapy and Clinical Impression ?? : ?_ This Pap Test has been evaluated with the assistance of the AlltuitionPrep Pap Test Imaging System. Note: The Pap test is a screening test for cervical cancer with an inherent false-negative rate dependent upon several variables. For further information please contact the [facility] Laboratory. Reference: Rosy ORTIZ. Forestry Instructor of Pap Smear Results. In: Chelsey BS, Joshua TAYLOR, ed. The Pap Smear. [place]: Lázaro, 2002: 71-77. [facility] 08/04/2020 10:2 5 AM EDT Malena Hernandez BROACH GRINDER PATHOLOGY/CYT OLOGY ORDERABLES [facility] [place] [address] * HIV Antibody Rapid Test (09/03/2012 7:45 PM EDT) HIV Ab/Ag Rapid Non-Reactive Non-React pancho HANNAH SERRANO Comment:Testing done by [employer] me Immunoassay. HIV Comment Negative screening test indicates low risk of HIV exposure. Called by: RANDI_, Read back by: Lia Rogers_, Date/Time:_ 21:45. HANNAH SERRANO Blood specimen (specimen) 09/03/2012 7:45 PM EDT [...] is based on Patients wishes. Care Teams Cyber Engineer Relationship Specialty Start Date End Date Richard Rasheed MD [address] [place] [address] PCP - General Family Medicine 07/05/23
--- OUTSIDE RECORDS SUMMARY | 2023-10-31 03:18 | XMS_ITS | Encounter Summary ---
Author Organization [facility] [place] [address] Care Team Providers Care Hat And Cap Sewer Name Role Phone Valencia Adhikari APRN Primary Care Provider [phone] Encounter Details Date Type Department Care Team (Late st Contact Info) Description 04/13/2023 Telephone Obstetrics [place] [phone] Jody Wood RN Social History Tobacco Use [...] Trimester Bleeding Per Protocol criteria ( Protocol #30927) meets criteria: Patient is less than 7 [...] requesting to have these labs drawn at [facility]. Will ssend these electronically. * Telephone Encounter - Jody Wood RN - 04/13/2023 1:28 PM EST ----- Message from Corine Alexander sent at 04/13/2023 1:00 PM EST ----- Regarding: spotting Caller's name: Andree Mcdonald Call back #: [phone] Patient's provider/team: EVANGELISTA 05/09 Reason for call: Slight spotting? documented in this encounter Plan of Treatment Upcoming Encounters Date Type Department Care Team (Late st Contact Info) Description 11/08/2023 1:45 PM EDT [place] [phone] Kelsea Shafer MD [facility] DR OBSTETRICS [place] [address] 11/08/2023 3:00 PM EDT Routine Obstetrics [place] [phone] Lexii Berger CNM [place] [address] 05/23/2024 Hospital Encounter Birthing [facility] [place] [phone] Maite Malloy MD [facility] OBSTETRICS [place] [address] documented as of this encounter Visit Diagnoses Not on filedocumented in this encounter Care Teams Hat And Cap Sewer Relationship Specialty Start Date End Date Valencia Adhikari APRN [address] [place] [address] PCP - General 04/21/14 07/04/23 documented as of this encounter
--- OUTSIDE RECORDS SUMMARY | 2023-10-31 03:19 | XMS_ITS | Encounter Summary ---
Author Organization [facility] [place] [address] Care Team Providers Care Addiction Psychiatrist Name Role Phone Valencia Adhikari APRN Primary Care Provider [phone] Encounter Details Date Type Department Care Team (Latest Contact Info) Description 07/21/2021 11:00 AM EDT TH Visit (TeleHealth) Psychiatry and Behavioral Health at [place] [address] Lisa Dickens, PhD Unspecified mood (affective) disorder; [...] EDT INDIVIDUAL THERAPY PROGRESS NOTE CPT CODE 28988 LOCATION: Telehealth visit. Andree SinghTamara gave permission for and was seen for today's appointment with a Telehealth visit. During this visit she was located in her apartment in [place], [place]. Andree WallisKamranTamara is aware that for any urgent matter she can can contact her regional mental health crisis services. For patients located in [place]: www.[employer] or text/call . Forpatients located in [place]: [email or web address]. To reach their [facility] mental health clinician or the outpatient Department of Psychiatry clinics,patient can call [phone]. 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 CENTRAL THEME OF SESSION: Crisis Survival Skills [...] 11/08/2023 1:45 PM EDT Appointment Ultrasound at [place] [phone] Kelsea Shafer MD [facility] OBSTETRICS [place] [address] 11/08/2023 3:00 PM EDT Routine Obstetrics [place] [address] Ab, Lexii Khan, CN[place] [facility] [place] [address] 05/23/2024 Hospital Encounter Birthing [place] [phone] Maite Malloy MD [facility] OBST[place] [address] documented as of this encounter Visit Diagnoses Diagnosis Unspecified mood (affective) disorder Borderline personality disorder documented in this encounter Care Teams Addiction Psychiatrist Relationship Specialty Start Date End Date Valencia Adhikari APRN [address] [place] [address] PCP - General 04/21/14 07/04/23 documented as of this encounter
--- OUTSIDE RECORDS SUMMARY | 2023-10-31 03:19 | XMS_ITS | Encounter Summary ---
Author Organization [facility] [place] [address] Care Team Providers Care Technology Intern Name Role Phone Valencia Adhikari APRN Primary Care Provider [phone] Encounter Details Date Type Department Care Team (Late st Contact Info) Description 05/10/2021 Telephone [place] [address] Maite Goff RN Social History [...] 11/08/2023 1:45 PM EDT Appointment Ultrasound at [place] [phone] Kelsea Shafer MD [facility] OBSTETRICS [place] [address] 11/08/2023 3:00 PM EDT Routine Obstetrics [place] [address] Ab, Lexii Khan, [facility] [place] [address] 05/23/2024 Hospital Encounter [place]thing [place] [phone] Maite Malloy MD [facility] [place] [address] documented as of this encounter Visit Diagnoses Not on filedocumented in this encounter Care Teams Technology Intern Relationship Specialty Start Date End Date Valencia Adhikari APRN [address] [place] [address] PCP - General 04/21/14 07/04/23 documented as of this encounter
--- OUTSIDE RECORDS SUMMARY | 2023-10-31 03:19 | XMS_ITS | Encounter Summary ---
[place] [address] Care Team Providers Care Electrical Line Worker Name Role Phone Onofre Valencia Barton APRN Primary Care Provider [phone] Encounter Details Date Type Department Care Team (Late st Contact Info) Description 07/14/2021 Telephone [place] [address] Snehal Madsen CCMA Social History Tobacco Use [...] 11/08/2023 1:45 PM EDT [place] [address] Kelsea Shafer MD [facility] [place] [address] 11/08/2023 3:00 PM EDT Routine Obstetrics [place] [address] Ab, Lexii Khan, [facility] [place], [place] [address]30[address] 05/23/2024 Hospital Encounter Birthing [place] [phone] Maite Malloy MD [facility] OBST[place] [address] documented as of this encounter Visit Diagnoses Not on filedocumented in this encounter Care Teams Electrical Line Worker Relationship Specialty Start Date End Date Valencia Adhikari APRN [address] [place] [address] PCP - General 04/21/14 07/04/23 documented as of this encounter
--- OUTSIDE RECORDS SUMMARY | 2023-10-31 03:19 | XMS_ITS | Encounter Summary ---
[place] [address] Care Team Providers Care Coffee Shop Attendant Name Role Phone OnofreMarilynValenciaadan Barton APRN Primary Care Provider [phone] Encounter Details Date Type Department Care Team (Late st Contact Info) Description 09/21/2021 Telephone [place] [address] Genet Johnston Social History Tobacco [...] 11/08/2023 1:45 PM EDT [place] [address] Kelsea Shafer MD [facility] [place] [address] 11/08/2023 3:00 PM EDT Routine Obstetrics [place] [address] Ab, Lexii Khna, [facility] [place], [place] [phone] 05/23/2024 [place] [address] Maite Malloy MD [facility] [place] [address] documented as of this encounter Visit Diagnoses Not on filedocumented in this encounter Care Teams Coffee Shop Attendant Relationship Specialty Start Date End Date Valencia Adhikari, COMMUNITY OUTREACH COORDINATOR [address] [place] [address] PCP - General 04/21/14 07/04/23 documented as of this encounter
--- OUTSIDE RECORDS SUMMARY | 2023-10-31 03:19 | XMS_ITS | Encounter Summary ---
Author Organization [facility] [place] [address] Care Team Providers Care Nicking Machine Operator Name Role Phone Valencia Adhikari APRN Primary Care Provider [phone] Encounter Details Date Type Department Care Team (Latest Contact Info) Description 06/27/2021 3:00 PM EDT TH Visit (TeleHealth) Psychiatry and Behavioral Health at [facility] [place] [address] Lisa Dickens, PhD Unspecified mood (affective) disorder; [...] EDT INDIVIDUAL THERAPY PROGRESS NOTE CPT CODE 12049 LOCATION: Telehealth visit. Andree SinghTamara gave permission for and was seen for today's appointment with a Telehealth visit. During this visit she was located in her apartment in [place], [place]. Andree WallisKamranTamara is aware that for any urgent matter she can can contact her regional mental health crisis services. For patients located in [place]: www.[facility] or text/call . Forpatients located in [place]: [email or web address]. To reach their [facility] mental health clinician or the outpatient Department of Psychiatry clinics,patient can call [phone]. SESSION DURATION: 30 minutes ATTENDEES: Patient PRIMARY [...] 11/08/2023 1:45 PM EDT Appointment Ultrasound at [place] [phone] Kelsea Shafer MD [facility] OBSTETRICS [place] [address] 11/08/2023 3:00 PM EDT Routine Obstetrics and Gynecology at [place] [phone] Ab, Lexii C, CNM [facility] [place] [address] 05/23/2024 Hospital Encounter Birthing [place] [phone] Maite Malloy MD [facility] OBSTETRICS [place] [address] documented as of this encounter Visit Diagnoses Diagnosis Unspecified mood (affective) disorder Borderline personality disorder documented in this encounter Care Teams Nicking Machine Operator Relationship Specialty Start Date End Date Valencia Adhikari APRN [address] [place] [address] PCP - General 04/21/14 07/04/23 documented as of this encounter
--- OUTSIDE RECORDS SUMMARY | 2023-10-31 03:19 | XMS_ITS | Encounter Summary ---
Author Organization [facility] [place] [address] Care Team Providers Care Digital Advertising Specialist Name Role Phone Valencia Adhikari APRN Primary Care Provider +1 -[phone] Encounter Details Date Type Department Care Team (Latest Contact Info) Description 09/22/2021 11:00 AM EDT TH Visit (TeleHealth) Psychiatry and Behavioral Health at [facility] [place] [address] Lisa Dickens, PhD Unspecified mood (affective) disorder; [...] EDT INDIVIDUAL THERAPY PROGRESS NOTE CPT CODE 21857 LOCATION: Telehealth visit. Andree SinghTamara gave permission for and was seen for today's appointment with a Telehealth visit. During this visit she was located in her apartment in [place], [place]. Andree WallisKamranTamara is aware that for any urgent matter she can can contact her regional mental health crisis services. For patients located in [place]: www.ThingWorx or text/call . Forpatients located in [place]: [email or web address]. To reach their [facility] mental health clinician or the outpatient Department of Psychiatry clinics,patient can call [phone]. SESSION DURATION: 25 minutes ATTENDEES: Patient PRIMARY [...] 11/08/2023 1:45 PM EDT Appointment Ultrasound at [place] [phone] Kelsea Shafer MD [facility] OBSTETRICS [place] [address] 11/08/2023 3:00 PM EDT Routine Obstetrics and Gynecology at [place] [phone] Ab, Lexii Khan, [place] [id number] 05/23/2024 Hospital Encounter Birthing [place] [phone] Maite Malloy MD [facility] OBSTETRICS [place] [address] documented as of this encounter Visit Diagnoses Diagnosis Unspecified mood (affective) disorder Borderline personality disorder documented in this encounter Care Teams Digital Advertising Specialist Relationship Specialty Start Date End Date Valencia Adhikari APRN [address] [place] [address] PCP - General 04/21/14 07/04/23 documented as of this encounter
--- OUTSIDE RECORDS SUMMARY | 2023-10-31 03:19 | XMS_ITS | Encounter Summary ---
Author Organization [facility] [place] [address] Care Team Providers Care Recruiting Assistant Name Role Phone Valencia Adhikari APRN Primary Care Provider +1 [phone] Reason for Visit * Reason Comments Establish Care Encounter Details Date Type Department Care Team (Late st Contact Info) Description 08/04/2020 10:00 AM EDT Office Visit Obstetrics [place] [phone] Malena Hernandez APRN [facility] DR OBSTETRICS [place] [address] Encounter for IUD removal (Primary Dx); Screening [...] at [facility] MAIN OR ??? PRO THYROIDECTOMY, IVA STAFFORD NECK SURG 03/22/2011 THYROIDECTOMY, FOR MALIGNANCY, LIMITED NECK DISSECTION performed by JUAN ESPARZA at [facility] MAIN OR ??? TONSILLECTOMY 2010 [...] is intact and this is shown to Toshaaaron before discarding. Pt tolerated the removal well. [...] 11/08/2023 1:45 PM EDT Appointment Ultrasound at [place] [phone] Kelsea Shafer MD [facility] [place] [address] 11/08/2023 3:00 PM EDT Routine Obstetrics [place] [address] Ab, Lexii Khan CNM [facility] [place] [address] 05/23/2024 Hospital [place] [address] Maite Malloy MD [facility] [place] [address] documented as of this encounter Procedures Procedure Name Priority Date/Time Associated Diagnosis Comments CT/NG PCR Routine 08/04/2020 10:25 AM EDT STITCHER HAND CYTOLOGY INTERPRETATION Routine 08/04/2020 10:25 AM EDT STITCHER HAND CYTOLOGY FINAL REPORT Routine 08/04/2020 10:25 AM EDT CYTOPATHOLOGY GYNECOLOGICAL Routine 08/04/2020 10:25 AM EDT Screening for cervical cancer documented in this encounter Results * STITCHER HAND Cytology Interpretation (08/04/2020 10:25 AM EDT) Fish Roe Processor Cytology Interpretation [facility] Comment:Fish Roe Processor Cytology Final R eport Endocervical Component Present [facility] AP Specimen 08/04/2020 10:2 5 AM EDT 08/16/2020 12:02 PM EDT Malena Hernandez ANTENNA INSTALLER PATHOLOGY/CYT OLOGY ORDERABLES [facility] [place] [address] * Fish Roe Processor Cytology Final Report (08/04/2020 10:25 AM EDT) Fish Roe Processor Cytology Final Report [id number] ? Location: 5L The signing pathologist has (i) examined the relevant preparation(s) for the specimen(s) and (ii) rendered or confirmed the diagnosis(es). . ? Fish Roe Processor Final DIAGNOSIS Infection and/or Reactive Repair Process Note: Reactive changes are present in the epithelial cells (benign cellular changes). This Pap test is negative for intraepithelial lesion or malignancy. (NILM) For consensus guidelines for the management of cervical cancer screening test results, please see: ?? http://www.asccp.o rg . Electronically signed by: ?Reji Sandoval MD Verified: ??08/16/2020 12:02 ??Cytopathologist Performed at: ??-[facility] Dept. of Pathology, [place], [place] HPV RESULTS HPV testing either not indicated or not requested by clinician. STATEMENT OF ADEQUACY Specimen submitted is satisfactory. Endocervical component present. CLINICAL INFORMATION HPV Option: ?Reflex HPV CT/NG Option: ?Yes Preparation: ? Liquid based Pap Specimen Source: ? Cervical/Endocervi shira LMP: ? IUD Hysterectomy: ?No : ?No : ?No I.U.D.: ?No Pelvic Radiation: ?No Hist Abnl Pap/Biopsy: ?No Prior STITCHER HAND Therapy: ? No Hist of HPV Vaccine: ? No ICD Diagnosis: ? Z12.4 Encounter for screening for malignant neoplasm of cervix Clinical Data, Significant Therapy and Clinical Impression ?? : ?_ This Pap Test has been evaluated with the assistance of the ThinPrep Pap Test Imaging System. Note: The Pap test is a screening test for cervical cancer with an inherent false-negative rate dependent upon several variables. For further information please contact the [facility] Laboratory. Reference: Rosy ORTIZ. Tar Man of Pap Smear Results. In: Chelsey BS, Joshua TAYLOR, ed. The Pap Smear. [place]: Lázaro, 2002: 71-77. [facility] 08/04/2020 10:2 5 AM EDT Malena Hernandez APRN PATHOLOGY/CYT OLOGY ORDERABLES [facility] [place] [address] * CT/NG PCR (08/04/2020 10:25 AM EDT) Chlamydia Gene Amp Negative Negative [facility] Comment: This assay was performed in the [facility] Clinical Genomics and Advanced Technology Laboratory using the melly?? CT/NG v2.0 Test ([employer] The melly?? CT/NG v2.0 Test [...] asymptomatic individuals. GC Gene Amp Negative Negative [facility] Comment: This assay was performed in the [facility] Clinical Genomics and Advanced Technology Laboratory using the melly?? CT/NG v2.0 Test ([employer] The melly?? CT/NG v2.0 Test [...] Malena Hernandez APRN MICROBIOLOGY - GENERAL [place] [address] * Cytopathology Gynecological (08/04/2020 10:25 AM EDT) AP Specimen 08/04/2020 10:2 5 AM EDT 08/04/2020 10:25 AM EDT Narrative [facility] - 08/04/2020 10:25 AM EDT Specimen requisition ordered. ??Separate Pathology report to follow Malena Hernandez ANTENNA INSTALLER PATHOLOGY/[place] [address] documented in this encounter Visit Diagnoses Diagnosis Encounter for IUD removal- Primary Encounter for removal of intrauterine contraceptive device Screening for cervical cancer Screening for malignant neoplasm of the cervix IUD (intrauterine device) in place Presence of intrauterine contraceptive device documented in this encounter Care Teams Recruiting Assistant Relationship Specialty Start Date End Date Valencia Adhikari APRN [address] [place] [address] PCP - General 04/21/14 07/04/23 documented as of this encounter
--- OUTSIDE RECORDS SUMMARY | 2023-10-31 03:19 | XMS_ITS | Encounter Summary ---
Author Organization [facility] Address [facility] [place] [address] Care Team Providers Care Engineering Consultant Name Role Phone Valencia Adhikari APRN Primary Care Provider [phone] [phone] Encounter Details Date Type Department Care Team (Late st Contact Info) Description 10/03/2021 Notes Only Psychiatry [place] [phone] Crispin Fuller MD [facility] [place] [address] Social History Tobacco Use Types Packs/Day Years [...] 11/08/2023 1:45 PM EDT [place] [address] Kelsea Shafer MD [facility] OBSTETRICS [place] [address] 11/08/2023 3:00 PM EDT Routine Obstetrics [place] [address] Lexii Berger CNM [facility] [address] [place] [id number] 05/23/2024 Hospital [place] [address] Maite Malloy MD [facility] OBSTETRICS [place] [address] documented as of this encounter Visit Diagnoses Not on filedocumented in this encounter Care Teams Engineering Consultant Relationship Specialty Start Date End Date Valencia Adhikari APRN [address] [place] [address] PCP - General 04/21/14 07/04/23 documented as of this encounter
--- OUTSIDE RECORDS SUMMARY | 2023-10-31 03:19 | XMS_ITS | Encounter Summary ---
Author Organization [facility] [place] [address] Care Team Providers Care Lithographic Proofer Apprentice Name Role Phone Valencia Adhikari APRN Primary Care Provider +1 [phone] Encounter Details Date Type Department Care Team (Late st Contact Info) Description 07/15/2020 Telephone Psychiatry [place] [address] Lisa Dickens, PhD Social History Tobacco Use [...] scheduled session on 07/22 or call our patient support associate at [phone]. Diagnosis: Borderline Personality Disorder; Unspecified Mood Disorder Plan: Pt will attend next scheduled visit on 07/22/20. documented in this encounter Plan of Treatment Upcoming Encounters Date Type Department Care Team (Late st Contact Info) Description 11/08/2023 1:45 PM EDT [place]oint[place] [address] Kelsea Shafer MD [facility] OBSTETRICS [place] [address] 11/08/2023 3:00 PM EDT Routine Obstetrics and Gynecology at [place] [phone] Ab, Lexii Khan, [facility] [place] [address] 05/23/2024 Hospital Encounter Birthing [place] [phone] Maite Malloy MD [facility] OBSTETRICS [place] [address] documented as of this encounter Visit Diagnoses Diagnosis Borderline personality disorder Unspecified mood (affective) disorder documented in this encounter Care Teams Lithographic Proofer Apprentice Relationship Specialty Start Date End Date Valencia Adhikari APRN [address] [place] [address] PCP - General 04/21/14 07/04/23 documented as of this encounter
--- OUTSIDE RECORDS SUMMARY | 2023-10-31 03:19 | XMS_ITS | Encounter Summary ---
Author Organization [facility] [place] [address] Care Team Providers Care Legal Department Manager Name Role Phone Valencia Adhikari APRN Primary Care Provider +1 [phone] Encounter Details Date Type Department Care Team (Latest Contact Info) Description 07/28/2021 11:00 AM EDT TH Visit (TeleHealth) Psychiatry and Behavioral Health at [facility] [place] [address] Lisa Dickens, PhD Unspecified mood (affective) disorder; [...] EDT INDIVIDUAL THERAPY PROGRESS NOTE CPT CODE 04183 LOCATION: Telehealth visit. Andree SinghTamara gave permission for and was seen for today's appointment with a Telehealth visit. During this visit she was located in her apartment in [place], [place]. Andree WallisKamranTamara is aware that for any urgent matter she can can contact her regional mental health crisis services. For patients located in [place]: www.Nomacorc or text/call . Forpatients located in [place]: [email or web address]. To reach their [facility] mental health clinician or the outpatient Department of Psychiatry clinics,patient can call [phone]. SESSION DURATION: 40 minutes ATTENDEES: Patient PRIMARY [...] 11/08/2023 1:45 PM EDT Appointment Ultrasound at [place] [phone] Kelsea Shafer MD [facility] [place]ST[place] [address] 11/08/2023 3:00 PM EDT Routine Obstetrics [place] [address] Ab, Lexii C, CNM [facility] [place] [address] 05/23/2024 Hospital Encounter Birthing [place] [phone] Maite Malloy MD [facility] [place] [address] documented as of this encounter Visit Diagnoses Diagnosis Unspecified mood (affective) disorder Borderline personality disorder documented in this encounter Care Teams Legal Department Manager Relationship Specialty Start Date End Date Valencia Adhikari APRN [address] [place] [address] PCP - General 04/21/14 07/04/23 documented as of this encounter
--- OUTSIDE RECORDS SUMMARY | 2023-10-31 03:19 | XMS_ITS | Encounter Summary ---
Author Organization [facility] Address [facility] [place] [address] Care Team Providers Care Car Washer Name Role Phone OnofreMarilyn pittshrryan Barton [place]ER[place] Primary Care Provider +1 -[phone] Encounter Details Date Type Department Care Team (Late st Contact Info) Description 06/17/2020 Orders Only Psychiatry [place] [address] Crispin Fuller MD [facility] [place] [address] Social History Tobacco Use Types Packs/Day Years [...] 11/08/2023 1:45 PM EDT [place] [address] Kelsea Shafer MD [facility] OBSTETRICS [place] [address] 11/08/2023 3:00 PM EDT Routine Obstetrics [place] [address] Ab, Lexii Khan CNM [facility] [place] [address] 05/23/2024 Hospital [place] [address] Maite Malloy MD [facility] OBSTETRICS [place] [address] documented as of this encounter Visit Diagnoses Not on filedocumented in this encounter Care Teams Car Washer Relationship Specialty Start Date End Date Valenica Adhikari APRN [address] [place] [address] PCP - General 04/21/14 07/04/23 documented as of this encounter
--- OUTSIDE RECORDS SUMMARY | 2023-10-31 03:19 | XMS_ITS | Encounter Summary ---
Author Organization [facility] [place] [address] Care Team Providers Care Sweet Goods Machine Operator Name Role Phone Valencia Adhikari APRN Primary Care Provider +1 -[phone] Encounter Details Date Type Department Care Team (Late st Contact Info) Description 05/23/2021 Telephone Psychiatry [place] [address] Lisa Dickens, PhD Social History Tobacco Use [...] 11/08/2023 1:45 PM EDT Appointment Ultrasound [place] [address] Kelsea Shafer MD [facility] OBSTETRICS [place] [address] 11/08/2023 3:00 PM EDT Routine Obstetrics and Gynecology at [place] [phone] Ab, Lexii C, [facility] [place] [address] 05/23/2024 Hospital Encounter Birthing [place] [phone] Maite Malloy MD [facility] OBSTETR[place] [address] documented as of this encounter Visit Diagnoses Diagnosis Borderline personality disorder Unspecified mood (affective) disorder documented in this encounter Care Teams Sweet Goods Machine Operator Relationship Specialty Start Date End Date Valencia Adhikari APRN [address] [place] [address] PCP - General 04/21/14 07/04/23 documented as of this encounter
--- OUTSIDE RECORDS SUMMARY | 2023-10-31 03:19 | XMS_ITS | Encounter Summary ---
Author Organization [facility] Address [facility] [place] [address] Care Team Providers Care Embossing Press Operator Molded Goods Name Role Phone Valencia Adhikari APRN Primary Care Provider +1 -[phone] Encounter Details Date Type Department Care Team (Latest Contact Info) Description 06/14/2020 10:30 AM EST TH Visit (TeleHealth) Psychiatry [place] [address] Crispin Fuller MD [facility] [place] [address] Unspecified mood (affective) disorder Social History Tobacco [...] Attendee(s): Patient This patient was seen with delivery driver/supervisor Dr. Awad. See their note for confirmatory and/or revisionarydocumentation. Andree Hummel gave permission for and was seen for today's appointment with a Telehealth visit. During this visit they were located in [place]. Andree Hummel is aware that for any urgent matter they can call [phone]. Chief Complaint: a lot has been going [...] cats and a dog. 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 Vitals (24hr Range): No data found. Musculoskeletal System: normal gait and balance, ambulates independently and no atrophy Mental Status Exam: ?? Appearance: age appropriate and casually dressed, pink hair ?? Behavior: cooperative with the interview and calm ?? Speech: normal pitch, normal volume, normal rate and normal rhythm ?? Language: fluent in bengali ?? Mood: better ?? Affect: constricted ?? [...] PHYSICIAN INVOLVEMENT Location: [facility], [address] Attending Physician: Jessica Awad MD Resident [...] 11/08/2023 1:45 PM EDT Appointment Ultrasound at [place] [address] Kelsea Shafer MD [facility] [place] [address] 11/08/2023 3:00 PM EDT Routine Obstetrics [place] [address] Ab, Lexii Khan, [facility] [place] [address] 05/23/2024 [place] [address] Maite Malloy MD [facility] [place] [address] documented as of this encounter Visit Diagnoses Diagnosis Unspecified mood (affective) disorder documented in this encounter Care Teams Embossing Press Operator Molded Goods Relationship Specialty Start Date End Date Valencia Adhikari APRN [address] [place] [address] PCP - General 04/21/14 07/04/23 documented as of this encounter
--- OUTSIDE RECORDS SUMMARY | 2023-10-31 03:19 | XMS_ITS | Encounter Summary ---
[place] [address] Care Team Providers Care Concrete Mixer Name Role Phone Valencia Adhikari APRN Primary Care Provider [phone] -[phone] Reason for Referral * Consultation (Routine) - Closed Specialty Diagnoses / Procedures Referred By Lamont riggins Referred To Contact Gastroenterology Diagnoses Irregular bowel habits Irregular bowel habits Valencia Adhikari APRN [address] [place] [address] [facility] [place] [address] Referral ID Status Reason Start Date Expiration Date V isits Requested Visits Authorized [id number] Closed Consult, Test & Treat 06/27/2021 06/27/2022 1 1 Encounter Details Date Type Department Care Team (Latest Contact Info) Description 06/27/2021 Transcribe Orders eDH Incoming Referrals [phone] Valencia Adhikari APRN [address] [place] [address] Irregular bowel habits Social History [...] 11/08/2023 1:45 PM EDT Appointment Ultrasound at [address] Kelsea Shafer MD [facility] [address] [place]ST[place] [address] 11/08/2023 3:00 PM EDT Routine Obstetrics and Gynecology at [place] [phone] AbLexii CNM [facility] [place] [address] 05/23/2024 Hospital Encounter Birthing [place] [phone] Maite Malloy MD [facility] [place] [address] Scheduled Referrals Name Type Priority Associated Diagnoses Order Schedule Referral to Gastroenterology Outpatient Referral Routine Irregular bowel habits Ordered: 06/27/2021 documented as of this encounter Visit Diagnoses Diagnosis Irregular bowel habits Other specified disorder of intestines documented in this encounter Care Teams Concrete Mixer Relationship Specialty Start Date End Date Valencia Adhikari APRN [address] [place] [address] PCP - General 04/21/14 07/04/23 documented as of this encounter
--- OUTSIDE RECORDS SUMMARY | 2023-10-31 03:19 | XMS_ITS | Encounter Summary ---
Author Organization [facility] Address [facility] [place] [address] Care Team Providers Care Guard Rail Installer Name Role Phone Valencia Adhikari APRN Primary Care Provider +1 -[phone] Reason for Visit * Psychiatric - Closed Specialty Diagnoses / Procedures Referred By Lamont riggins Referred To Contact Psychiatry Diagnoses Unspecified mood (affective) disorder Crispin Fuller MD [facility] [place] [address] Lisa Dickens, PhD Referral ID Status Reason Start Date Expiration Date V isits Requested Visits Authorized [id number] Closed Consult, Test & Treat 02/16/2020 02/15/2021 1 1 Encounter Details Date Type Department Care Team (Latest Contact Info) Description 07/12/2020 9:00 AM EDT TH Visit (TeleHealth) Psychiatry [place] [address] Lisa Dickens, PhD Borderline personality disorder; Mood [...] EDT INDIVIDUAL THERAPY PROGRESS NOTE CPT CODE 63506 LOCATION: Telehealth. Andree Hummel gave permission for and was seen for today's appointment with a Telehealth visit. During this visit she was located in her apartment in [place], [place]. Andree Hummel is aware that for any urgent matter she can call [phone]. SESSION DURATION: 60 minutes ATTENDEES: Patient PRIMARY COMPLAINT/DIAGNOSIS: Borderline Personality Disorder; Unspecified Mood Disorder TREATMENT MODALITY: DBT PATIENT REPORT OF CURRENT FUNCTIONING/CHANGES: This was our initial session. Patient had an evaluation with Dr. Crispin Fuller in February 2020. During today's session, patient reported: -grew up in congregational [employer] household, parents immigrated from [place] and were very congregational, patient was oldest of 4 biological children, [...] 11/08/2023 1:45 PM EDT Appointment Ultrasound at [place] [address] Kelsea Shafer MD [facility] [place] [address] 11/08/2023 3:00 PM EDT Routine Obstetrics [place] [address] Ab, Lexii Khan, CNM [facility] [place] [address] 05/23/2024 [place] [address] Maite Malloy MD [facility] [place] [address] Scheduled Referrals Name Type Priority Associated Diagnoses Order Schedule Referral to Psychology Outpatient Referral Routine Unspecified mood (affective) disorder Ordered: 02/16/2020 documented as of this encounter Visit Diagnoses Diagnosis Borderline personality disorder Mood disorder Unspecified episodic mood disorder documented in this encounter Care Teams Guard Rail Installer Relationship Specialty Start Date End Date Valencia Adhikari APRN [address] [place] [address] PCP - General 04/21/14 07/04/23 documented as of this encounter
--- OUTSIDE RECORDS SUMMARY | 2023-10-31 03:19 | XMS_ITS | Encounter Summary ---
Author Organization Formerly [facility] [place] [address] Care Team Providers Care Data Collection Interviewer Name Role Phone Valencia Adhikari APRN Primary Care Provider +1 [phone] Encounter Details Date Type Department Care Team (Latest Contact Info) Description 06/06/2021 3:00 PM EST TH Visit (TeleHealth) Psychiatry and Behavioral Health at [facility] [place] [address]1000 Lisa Dickens, PhD Borderline personality disorder; Unspecified [...] EST INDIVIDUAL THERAPY PROGRESS NOTE CPT CODE 86939 LOCATION: Telehealth visit. Andree Artislliams gave permission for and was seen for today's appointment with a Telehealth visit. During this visit she was located in her apartment in [place], [place]. Andree WallisKamranTamara is aware that for any urgent matter she can can contact her regional mental health crisis services. For patients located in [place]: www.Farmainstant or text/call . Forpatients located in [place]: https://mentalhealth.[place].[facility]/services/emergency-services/aog-wpz-dgzz. To reach their [facility] mental health clinician or the outpatient Department of Psychiatry clinics,patient can call [phone]. SESSION DURATION: 17 minutes ATTENDEES: Patient PRIMARY [...] than 20 minutes as she had to curing pickling packer her son CENTRAL THEME OF SESSION: Cognitive [...] 11/08/2023 1:45 PM EDT Appointment Ultrasound at [place] [phone] Kelsea Shafer MD [facility] OBSTETRICS [place] [address] 11/08/2023 3:00 PM EDT Routine Obstetrics and Gynecology at [place] [phone] Ab, Lexii C, CNM [facility] [address] [place] [address] 05/23/2024 Hospital Encounter Birthing [place] [phone] Maite Malloy MD [facility] OBSTETRICS [place] [address] documented as of this encounter Visit Diagnoses Diagnosis Borderline personality disorder Unspecified mood (affective) disorder documented in this encounter Care Teams Data Collection Interviewer Relationship Specialty Start Date End Date Valencia Adhikari APRN [address] [place] [address] PCP - General 04/21/14 07/04/23 documented as of this encounter
--- OUTSIDE RECORDS SUMMARY | 2023-10-31 03:19 | XMS_ITS | Encounter Summary ---
Author Organization Formerly [facility] [address] Care Team Providers Care Administrative Executive Name Role Phone Valencia Adhikari APRN Primary Care Provider +1 -[phone] Encounter Details Date Type Department Care Team (Latest Contact Info) Description 06/13/2021 3:00 PM EST TH Visit (TeleHealth) Psychiatry and Behavioral Health at [place] [phone] Lisa Dickens, PhD Unspecified mood (affective) disorder; [...] EST INDIVIDUAL THERAPY PROGRESS NOTE CPT CODE 77941 LOCATION: Telehealth visit. Andree Artislliams gave permission for and was seen for today's appointment with a Telehealth visit. During this visit she was located in her apartment in [place], [place]. Andree WallisKamranTamara is aware that for any urgent matter she can can contact her regional mental health crisis services. For patients located in [place]: www.Shootitlive or text/call . Forpatients located in [place]: https://mentalhealth.[place].[facility]/services/emergency-services/lyn-ztm-uetl. To reach their [facility] mental health clinician or the outpatient Department of Psychiatry clinics,patient can call [phone]. SESSION DURATION: 40 minutes ATTENDEES: Patient PRIMARY [...] 11/08/2023 1:45 PM EDT Appointment Ultrasound at [place] [phone] Kelsea Shafer MD [facility] [place] [address] 11/08/2023 3:00 PM EDT Routine Obstetrics and Gynecology at [place] [phone] Ab, Lexii C, CNM [facility] [place] [address] 05/23/2024 Hospital Encounter Birthing [place] [phone] Maite Malloy MD [facility] [place] [address] documented as of this encounter Visit Diagnoses Diagnosis Unspecified mood (affective) disorder Borderline personality disorder documented in this encounter Care Teams Administrative Executive Relationship Specialty Start Date End Date Valencia Adhikari APRN [address] [place] [address] PCP - General 04/21/14 07/04/23 documented as of this encounter
--- OUTSIDE RECORDS SUMMARY | 2023-10-31 03:19 | XMS_ITS | Encounter Summary ---
Author Organization [facility] [place] [address] Care Team Providers Care Block Operator Name Role Phone Valencia Adhikari APRN Primary Care Provider +1 -[phone] Encounter Details Date Type Department Care Team (Latest Contact Info) Description 08/19/2020 1:00 PM EDT TH Visit (TeleHealth) Psychiatry [place] [address]-1000 Lisa Dickens, PhD Borderline personality disorder; Unspecified [...] EDT INDIVIDUAL THERAPY PROGRESS NOTE CPT CODE 40063 LOCATION: Telehealth. Andree Artislliams gave permission for and was seen for today's appointment with a Telehealth visit. During this visit she was located in her apartment in [place], [place]. Andree WallisVishalTamara is aware that for any urgent matter she can call [phone]. SESSION DURATION: 50 minutes ATTENDEES: Patient PRIMARY [...] 11/08/2023 1:45 PM EDT Appointment Ultrasound at [place] [phone] Kelsea Shafer MD [facility] [place] [address] 11/08/2023 3:00 PM EDT Routine Obstetrics [place] [phone] Ab, Lexii C, CNM [facility] [place] [address] 05/23/2024 [place] [phone] Maite Malloy MD [facility] OBSTETR[place] [address] documented as of this encounter Visit Diagnoses Diagnosis Borderline personality disorder Unspecified mood (affective) disorder documented in this encounter Care Teams Block Operator Relationship Specialty Start Date End Date Valencia Adhikari APRN [address] [place] [address] PCP - General 04/21/14 07/04/23 documented as of this encounter
--- OUTSIDE RECORDS SUMMARY | 2023-10-31 03:19 | XMS_ITS | Encounter Summary ---
Author Organization [facility] Address [facility] [place] [address] Care Team Providers Care Social Media Community Manager Name Role Phone Valencia Adhikari APRN Primary Care Provider +1 [phone] Encounter Details Date Type Department Care Team (Latest Contact Info) Description 07/27/2021 3:30 PM EDT TH Visit (TeleHealth) Psychiatry [place] [phone] Crispin Fuller MD [facility] [place] [address] Borderline personality disorder; Substance use disorder Social [...] Attendee(s): Patient This patient was seen with byproducts supervisor Dr. Awad. See their note for confirmatory and/or revisionarydocumentation. Andree Hummel gave permission for and was seen for today's appointment with a Telehealth visit. During this visit they were located in [place]. Andree Hummel is aware that for any urgent matter they can call: If you are located in [place], please call your local community crisis line at [place]: [facility] [phone],[place]: [facility] [phone], or text [place] to [phone] For further information for [place] residents: https://mentalhealth.[place].[facility]/services/emergency-services/qbz-akc-xklr To reach your mental health clinician or the outpatient Department of Psychiatry clinics: [phone] Chief Complaint: Its bad History of Present [...] therapist to pursue outpatient substance treatment through [facility] with plans for first visit next . [...] cats and a dog. 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 Vitals (24hr Range): No data found. Musculoskeletal System: normal gait and balance, ambulates independently and no atrophy Mental Status Exam: ?? Appearance: age appropriate and casually dressed ?? Behavior: cooperative with the interview and calm ?? Speech: normal pitch, normal volume, normal rate and normal rhythm ?? Language: fluent in sinhala ?? Mood: terrrible ?? Affect: constricted ?? [...] to engage in outpatient substance treatment at [facility] starting next and reports a goal of [...] associated legal issues. Has an appointment at [facility] next week. Reports using cannabis, drinking a six-pack weekly. Reports depressed mood. Denies suicidalideation. Plan today to change Effexor to XR and increase to 150mg daily, continue mirtazapine 15mgqHS. Jessica Awad MD documented in this encounter Plan of Treatment Upcoming Encounters Date Type Department Care Team (Late st Contact Info) Description 11/08/2023 1:45 PM EDT Appointment Ultrasound at [place] [phone] [facility] OBSTETRICS [place] [address] 11/08/2023 3:00 PM EDT Routine Obstetrics and Gynecology at [place] [phone] Ab, Lexii Khan, [place] [address] 05/23/2024 Hospital Encounter Birthing [place] [phone] [facility] OBSTETRICS [place] [address] documented as of this encounter Visit Diagnoses Diagnosis Borderline personality disorder Substance use disorder documented in this encounter Care Teams Social Media Community Manager Relationship Specialty Start Date End Date Valencia Adhikari APRN [address] [place] [address] PCP - General 04/21/14 07/04/23 documented as of this encounter
--- OUTSIDE RECORDS SUMMARY | 2023-10-31 03:19 | XMS_ITS | Encounter Summary ---
Author Organization [facility] [place] [address] Care Team Providers Care Primary Health Care Nurse Name Role Phone Valencia Adhikari APRN Primary Care Provider +1 [phone] Encounter Details Date Type Department Care Team (Latest Contact Info) Description 04/25/2021 3:00 PM EST TH Visit (TeleHealth) Psychiatry [place] [address]-1000 Lisa Dickens, PhD Borderline personality disorder Social [...] EST INDIVIDUAL THERAPY PROGRESS NOTE CPT CODE 02157 LOCATION: Telephone office visit. Andree SinghTamara gave permission for and was seen for today's appointment with a Telephone office visit. During this visit she was located in her apartment in [place], [place]. Andree WallisKamranTamara is aware that for any urgent matter she can can contact her regional mental health crisis services. For patients located in [place]: www.TextPayMe or text/call . For patients located in [place]: https://mentalhealth.[place].[facility]/services/emergency-services/lyt-gus-jnnp. To reach their [facility] mental health clinician or the outpatient Department of Psychiatry clinics, patient can call [phone]. SESSION DURATION: 40 minutes ATTENDEES: Patient PRIMARY [...] 11/08/2023 1:45 PM EDT Appointment Ultrasound at [place] [phone] Kelsea Shafer MD [facility] [place] [address] 11/08/2023 3:00 PM EDT Routine Obstetrics [place] [address] Ab, Lexii Khan, [place] [place] [address] 05/23/2024 Hospital Encounter Birthing [place] [phone] Maite Malloy MD [facility] [place] [address] documented as of this encounter Visit Diagnoses Diagnosis Borderline personality disorder documented in this encounter Care Teams Primary Health Care Nurse Relationship Specialty Start Date End Date Valencia Adhikari APRN [address] [place] [address] PCP - General 04/21/14 07/04/23 documented as of this encounter
--- OUTSIDE RECORDS SUMMARY | 2023-10-31 03:19 | XMS_ITS | Encounter Summary ---
Author Organization [facility] [place] [address] Care Team Providers Care Photogeologist Name Role Phone Valencia Adhikari APRN Primary Care Provider +1 [phone] Encounter Details Date Type Department Care Team (Latest Contact Info) Description 11/17/2021 8:00 AM EDT TH Visit (TeleHealth) Psychiatry [place] [phone] Lisa Dickens, PhD Unspecified mood (affective) disorder; [...] EDT INDIVIDUAL THERAPY PROGRESS NOTE CPT CODES 08595, 82368, 88898 LOCATION: Telehealth. Andree Hummel gave permission for and was seen for today's appointment with a Telehealth visit. During this visit she was located at her home in [place], [place]. Andree WallisVishalTamara is aware that for any urgent matter she can call [phone]. 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 At that [...] emergencies, call 988 from anywhere in the [facility]. State specific information for [place] and [place] crisis services are as follows and should be used to access local resources: [facility] Crises Services [facility] Crisis Line text or call Visit www.[employer] for further information [place] Call your local [facility] crisis line at: [place]: Counseling [facility] [phone] [place]: [facility] Services [phone] [place]: [facility] [phone] [place]: [facility] [phone] [place]: [facility] [phone] [place] doris [place]: [facility] Counseling and Support [phone] [place]: [facility] [phone] on weekdays 8AM-4:30PM and [phone] on nights and weekends [place]: [facility] [place]: [facility] [phone] [place]: [facility] Services [phone] [place]: [facility] Services, [place]: H[facility]S [place]: HCRS or Text [place] to [phone] For further information for [place] residents: https://mentalhealth.[place].[facility]/services/emergency-services/cak-oht-nvst National Suicide Prevention Hotline: For patients cared for in the Department of Psychiatry, you can reach your mental health clinician at [phone]. Lisa Dickens, PhD documented in this encounter Plan of Treatment Upcoming Encounters Date Type Department Care Team (Late st Contact Info) Description 11/08/2023 1:45 PM EDT Appointment Ultrasound at [place] [phone] Kelsea Shafer MD [facility] DR OBSTET[place] [address] 11/08/2023 3:00 PM EDT Routine Obstetrics and Gynecology at [place] [phone] Ab, Lexii C, [place] [place] [address] 05/23/2024 Hospital Encounter Birthing [place] [phone] Maite Malloy MD [facility] OBSTETRICS [place] [address] documented as of this encounter Visit Diagnoses Diagnosis Unspecified mood (affective) disorder Borderline personality disorder documented in this encounter Care Teams Photogeologist Relationship Specialty Start Date End Date Valencia Adhikari APRN [address] [place] [address] PCP - General 04/21/14 07/04/23 documented as of this encounter
--- OUTSIDE RECORDS SUMMARY | 2023-10-31 03:19 | XMS_ITS | Encounter Summary ---
Author Organization [facility] [place] [address] Care Team Providers Care Belt Back Operator Name Role Phone OnofreValencia pitts [place] Primary Care Provider +1 -[phone] Encounter Details Date Type Department Care Team (Late st Contact Info) Description 07/14/2021 Telephone [place] [address] Maria Teresa Wheeler Social History [...] 3:12 PM EDT Lab orders faxed to [facility] at the request of KANDIS Hector. documented in this encounter Plan of Treatment Upcoming Encounters Date Type Department Care Team (Late st Contact Info) Description 11/08/2023 1:45 PM EDT Appointment [place] [address] Kelsea Shafer MD [facility] DR OBSTETRICS [place] [address] 11/08/2023 3:00 PM EDT Routine Obstetrics [place] [phone] Ab, Lexii Khan CNM [facility] [place] [address] 05/23/2024 [place] [phone] Maite Malloy MD [facility] OBSTETRICS AND GYNECOLOGY [place], [place] [phone] documented as of this encounter Visit Diagnoses Not on filedocumented in this encounter Care Teams Belt Back Operator Relationship Specialty Start Date End Date Valencia Adhikari, HEALTH WORKER [address] [place] [address] PCP - General 04/21/14 07/04/23 documented as of this encounter
--- OUTSIDE RECORDS SUMMARY | 2023-10-31 03:19 | XMS_ITS | Encounter Summary ---
Author Organization [facility] [place] [address] Care Team Providers Care Sequencing Machine Operator Name Role Phone Valencia Adhikari APRN Primary Care Provider +1 -[phone] Encounter Details Date Type Department Care Team (Latest Contact Info) Description 05/02/2021 3:00 PM EST TH Visit (TeleHealth) Psychiatry and Behavioral Health at [facility] [place] [address]-1000 Lisa Dickens, PhD Borderline personality disorder; Unspecified [...] EST INDIVIDUAL THERAPY PROGRESS NOTE CPT CODE 30737 LOCATION: Telephone office visit. Andree Artislliams gave permission for and was seen for today's appointment with a Telephone office visit. During this visit she was located in her apartment in [place], [place]. Andree WallisKamranaTmara is aware that for any urgent matter she can can contact her regional mental health crisis services. For patients located in [place]: www.Coupsta or text/call . For patients located in [place]: https://mentalhealth.[place].[facility]/services/emergency-services/yri-uuq-vtur. To reach their [facility] mental health clinician or the outpatient Department of Psychiatry clinics, patient can call [phone]. SESSION DURATION: 30 minutes ATTENDEES: Patient PRIMARY [...] 11/08/2023 1:45 PM EDT [place] [address] Kelsea Shafer MD [facility] DR OBSTET[place] [address] 11/08/2023 3:00 PM EDT Routine Obstetrics [place] [address] Ab, Lexii Khan CNM [facility] [place] [address] 05/23/2024 Hospital [place] [phone] Maite Malloy MD [facility] OBSTETRICS [place] [address] documented as of this encounter Visit Diagnoses Diagnosis Borderline personality disorder Unspecified mood (affective) disorder documented in this encounter Care Teams Sequencing Machine Operator Relationship Specialty Start Date End Date Valencia Adhikari APRN [address] [place] [address] PCP - General 04/21/14 07/04/23 documented as of this encounter
--- OUTSIDE RECORDS SUMMARY | 2023-10-31 03:19 | XMS_ITS | Encounter Summary ---
Author Organization [facility] Address [facility] [place] [address] Care Team Providers Care Pulp Operator Name Role Phone Valencia Adhikari APRN Primary Care Provider +1 -[phone] Encounter Details Date Type Department Care Team (Latest Contact Info) Description 05/18/2021 2:30 PM EST TH Visit (TeleHealth) Psychiatry [place] [address] Crispin Fuller MD [facility] [place] [address] Borderline personality disorder Social History Tobacco Use [...] Attendee(s): Patient This patient was seen with lease administration supervisor Dr. Awad. See their note for confirmatory and/or revisionarydocumentation. Andree Hummel gave permission for and was seen for today's appointment with a Telehealth visit. During this visit they were located in [place]. Andree Hummel is aware that for any urgent matter they can call: If you are located in [place], please call your local community crisis line at [place]: [facility] [phone],[place]: [facility] [phone], or text [place] to [phone] For further information for [place] residents: https://mentalhealth.[place].[facility]/services/emergency-services/xvb-vdo-hycm To reach your mental health clinician or the outpatient Department of Psychiatry clinics: [phone] Chief Complaint: Its been a lot History [...] cats and a dog. 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 Vitals (24hr Range): No data found. Musculoskeletal System: normal gait and balance, ambulates independently and no atrophy Mental Status Exam: ?? Appearance: age appropriate and casually dressed, purple hair ?? Behavior: cooperative with the interview and calm ?? Speech: normal pitch, normal volume, normal rate and normal rhythm ?? Language: fluent in kittitian ?? Mood: a little better ?? Affect: [...] PHYSICIAN INVOLVEMENT Location: Adult Psychiatry Medication Clinic, [facility] 5D Attending Physician: Jessica [...] 11/08/2023 1:45 PM EDT Appointment Ultrasound at [place] [phone] Kelsea Shafer MD [facility] DR [place] [address] 11/08/2023 3:00 PM EDT Routine Obstetrics and Gynecology at [place] [phone] Ab, Lexii C, [place] [place] [address] 05/23/2024 Hospital Encounter Birthing [place] [phone] Maite Malloy MD [facility] [place] [address] documented as of this encounter Visit Diagnoses Diagnosis Borderline personality disorder documented in this encounter Care Teams Pulp Operator Relationship Specialty Start Date End Date Valencia Adhikari APRN [address] [place] [address] PCP - General 04/21/14 07/04/23 documented as of this encounter
--- OUTSIDE RECORDS SUMMARY | 2023-10-31 03:19 | XMS_ITS | Encounter Summary ---
Author Organization [facility] [place] [address] Care Team Providers Care Air Analysis Technician Name Role Phone Valencia Adhikari APRN Primary Care Provider +1 -[phone] Encounter Details Date Type Department Care Team (Latest Contact Info) Description 09/08/2021 11:00 AM EDT TH Visit (TeleHealth) Psychiatry and Behavioral Health at [facility] [place] [address] Lisa Dickens, PhD Unspecified mood (affective) disorder; [...] EDT INDIVIDUAL THERAPY PROGRESS NOTE CPT CODE 96100 LOCATION: Telehealth visit. Andree SinghTamara gave permission for and was seen for today's appointment with a Telehealth visit. During this visit she was located in her apartment in [place], [place]. Andree WallisKamranTamara is aware that for any urgent matter she can can contact her regional mental health crisis services. For patients located in [place]: www.[employer] or text/call . Forpatients located in [place]: [email or web address]. To reach their [facility] mental health clinician or the outpatient Department of Psychiatry clinics,patient can call [phone]. SESSION DURATION: 25 minutes ATTENDEES: Patient PRIMARY [...] 11/08/2023 1:45 PM EDT Appointment Ultrasound at [place] [phone] Kelsea Shafer MD [facility] OBSTETRICS [place] [address] 11/08/2023 3:00 PM EDT Routine Obstetrics and Gynecology at [place] [phone] Ab, Lexii C, CNM [facility] [place] Ram[place]rez [address] 05/23/2024 Hospital [place] [phone] Maite Malloy MD [facility] OBSTETRICS [place] [address] documented as of this encounter Visit Diagnoses Diagnosis Unspecified mood (affective) disorder Borderline personality disorder documented in this encounter Care Teams Air Analysis Technician Relationship Specialty Start Date End Date Valencia Adhikari APRN [address] [place] [address] PCP - General 04/21/14 07/04/23 documented as of this encounter
--- OUTSIDE RECORDS SUMMARY | 2023-10-31 03:19 | XMS_ITS | Encounter Summary ---
Author Organization [facility] Address [facility] [place] [address] Care Team Providers Care Ware Dresser Name Role Phone OnofreMarilyn pittshrryan Barton BERLIN Primary Care Provider +1 -[phone] Encounter Details Date Type Department Care Team (Late st Contact Info) Description 05/14/2020 Orders Only Psychiatry [place] [address] Crispin Fuller MD [facility] [place] [address] Social History Tobacco Use Types Packs/Day Years [...] 11/08/2023 1:45 PM EDT [place] [address] Kelsea Shafer MD [facility] [place] [address] 11/08/2023 3:00 PM EDT Routine Obstetrics [place] [address] Ab, Lexii Khan CNM [facility] [place] [address] 05/23/2024 Hospital [place] [address] Maite Malloy MD [facility] [place] [address] documented as of this encounter Visit Diagnoses Not on filedocumented in this encounter Care Teams Ware Dresser Relationship Specialty Start Date End Date Valencia Adhikari APRN [address] [place] [address] PCP - General 04/21/14 07/04/23 documented as of this encounter
--- OUTSIDE RECORDS SUMMARY | 2023-10-31 03:19 | XMS_ITS | Encounter Summary ---
Author Organization [facility] [place] [address] Care Team Providers Care Supervisor Road Administrator Name Role Phone Valencia Adhikari APRN Primary Care Provider +1 -[phone] Encounter Details Date Type Department Care Team (Latest Contact Info) Description 03/21/2021 11:00 AM EST TH Visit (TeleHealth) Psychiatry [place] [address]1000 Lisa Dickens, PhD Unspecified mood (affective) disorder; [...] EST INDIVIDUAL THERAPY PROGRESS NOTE CPT CODE 70609 LOCATION: Telehealth. Andree Artislliams gave permission for and was seen for today's appointment with a Telehealth visit. During this visit she was located in her apartment in [place], [place]. Andree WallisKamranTamara is aware that for any urgent matter she can call [phone]. SESSION DURATION: 40 minutes ATTENDEES: Patient PRIMARY [...] 11/08/2023 1:45 PM EDT Appointment Ultrasound at [place] [phone] Kelsea Shafer MD [facility] OBSTETRICS [place] [address] 11/08/2023 3:00 PM EDT Routine Obstetrics [place] [address] Ab, Lexii Khan, [place] [address] 05/23/2024 Hospital [place] [address] Maite Malloy MD [facility] OBSTETRICS [place] [address] documented as of this encounter Visit Diagnoses Diagnosis Unspecified mood (affective) disorder Borderline personality disorder documented in this encounter Care Teams Supervisor Road Administrator Relationship Specialty Start Date End Date Valencia Adhikari APRN [address] [place] [address] PCP - General 04/21/14 07/04/23 documented as of this encounter
--- OUTSIDE RECORDS SUMMARY | 2023-10-31 03:19 | XMS_ITS | Encounter Summary ---
Author Organization [facility] [place] [address] Care Team Providers Care Head Of Global Strategic Partnerships Name Role Phone Valencia Adhikari APRN Primary Care Provider +1 -[phone] Encounter Details Date Type Department Care Team (Latest Contact Info) Description 08/18/2021 11:00 AM EDT TH Visit (TeleHealth) Psychiatry and Behavioral Health at [facility] [place] [phone] Lisa Dickens, PhD Unspecified mood (affective) disorder; [...] EDT INDIVIDUAL THERAPY PROGRESS NOTE CPT CODE 68486 LOCATION: Telehealth visit. Andree SinghTamara gave permission for and was seen for today's appointment with a Telehealth visit. During this visit she was located in her apartment in [place], [place]. Andree WallisKamranTamara is aware that for any urgent matter she can can contact her regional mental health crisis services. For patients located in [place]: www.[employer] or text/call . Forpatients located in [place]: [email or web address]. To reach their [facility] mental health clinician or the outpatient Department of Psychiatry clinics,patient can call [phone]. SESSION DURATION: 40 minutes ATTENDEES: Patient PRIMARY COMPLAINT/DIAGNOSIS: Borderline Personality Disorder; Unspecified Mood Disorder; R/O PTSD TREATMENT MODALITY: DBT PATIENT REPORT OF CURRENT FUNCTIONING/CHANGES: Patient reported: -has an appt at [facility], friend Caroline is going with her, just [...] her apprehension about her upcoming trip to [place] and being around her mother's family for [...] 11/08/2023 1:45 PM ED[place] [phone] Kelsea Shafer MD [facility] [address] OBSTETRICS [place] [address] 11/08/2023 3:00 PM EDT Routine Obstetrics [place] [address] Ab, Lexii Khan CNM [facility] [address] [place] [id number] 05/23/2024 Hospital [place] [address] Maite Malloy MD [facility] [address] OBSTETRICS [place] [address] documented as of this encounter Visit Diagnoses Diagnosis Unspecified mood (affective) disorder Borderline personality disorder documented in this encounter Care Teams Head Of Global Strategic Partnerships Relationship Specialty Start Date End Date Valencia Adhikari APRN [address] [place] [address] PCP - General 04/21/14 07/04/23 documented as of this encounter
--- OUTSIDE RECORDS SUMMARY | 2023-10-31 03:19 | XMS_ITS | Encounter Summary ---
[place] [address] Care Team Providers Care Asphalt Plant Operator Name Role Phone Valencia Adhikari APRN Primary Care Provider +1 -[phone] Encounter Details Date Type Department Care Team (Late st Contact Info) Description 05/18/2020 Telephone Psychiatry [place] [address] Sary Harris Social History Tobacco Use Types [...] 11/08/2023 1:45 PM EDT [place] [phone] Kelsea Shafer MD [facility] OBSTETRICS [place] [address] 11/08/2023 3:00 PM EDT Routine Obstetrics [place] [address] Ab, Lexii Khan, [facility] [place], [place] [id number] 05/23/2024 Hospital Encounter Birthing [place] [phone] Maite Malloy MD [facility] OBSTETRICS [place] [address] documented as of this encounter Visit Diagnoses Not on filedocumented in this encounter Care Teams Asphalt Plant Operator Relationship Specialty Start Date End Date Vlaencia Adhikari APRN [address] [place] [address] PCP - General 04/21/14 07/04/23 documented as of this encounter
--- OUTSIDE RECORDS SUMMARY | 2023-10-31 03:19 | XMS_ITS | Encounter Summary ---
Author Organization [facility] Address [facility] [place] [address] Care Team Providers Care Line Haul Owner Operator Name Role Phone OnofreMarilynValenciaadan Barton APRN Primary Care Provider +1 [phone] Reason for Visit * Reason Onset Date Comments Medication Refill 2020 Encounter Details Date Type Department Care Team (Late st Contact Info) Description 2020 Refill Psychiatry [place] [address] Crispin Fuller MD [facility] [place] [address] Anxiety Social History Tobacco Use Types Packs/Day [...] 11/08/2023 1:45 PM EDT Appointment [place] [address] Kelsea Shafer MD [facility] OBST[place] [address] 11/08/2023 3:00 PM EDT Routine Obstetrics [place] [address] Ab, Lexii Khan CN[place] [facility] [place] [address] 05/23/2024 Hospital [place] [address] Maite Malloy MD [facility] DR OBSTETRICS AND GYNECOLOGY [place], [place] [phone] documented as of this encounter Visit Diagnoses Diagnosis Anxiety Anxiety state, unspecified documented in this encounter Care Teams Line Haul Owner Operator Relationship Specialty Start Date End Date Valencia Adhikari APRN [address] [place] [address] PCP - General 04/21/14 07/04/23 documented as of this encounter
--- OUTSIDE RECORDS SUMMARY | 2023-10-31 03:19 | XMS_ITS | Encounter Summary ---
Author Organization [facility] [place] [address] Care Team Providers Care Calendar Control Clerk Blood Bank Name Role Phone Valencia Adhikari APRN Primary Care Provider +1 -[phone] Encounter Details Date Type Department Care Team (Late st Contact Info) Description 10/10/2021 Telephone [place] [address] Peg Cast Social History Tobacco [...] 11/08/2023 1:45 PM EDT Appoint[place] [address] Kelsea Shafer MD [facility] OBSTETRICS AND [place]EC[place] [address] 11/08/2023 3:00 PM EDT Routine Obstetrics [place] [address] Ab, Lexii Khan, CNM [facility] [place] [address] 05/23/2024 Hospital [place] [address] Maite Malloy MD [facility] OBSTETRICS AND [place]EC[place] [address] documented as of this encounter Visit Diagnoses Not on filedocumented in this encounter Care Teams Calendar Control Clerk Blood Bank Relationship Specialty Start Date End Date Valencia Adhikari APRN [address] [place] [address] PCP - General 04/21/14 07/04/23 documented as of this encounter
--- OUTSIDE RECORDS SUMMARY | 2023-10-31 03:19 | XMS_ITS | Encounter Summary ---
Author Organization [facility] Address [facility] [place] [address] Care Team Providers Care Margin Analyst Name Role Phone Valencia Adhikari APRN Primary Care Provider +1 -[phone] Encounter Details Date Type Department Care Team (Late st Contact Info) Description 03/14/2021 Telephone Psychiatry [place] [address] Mary Bateman Social History Tobacco [...] 11/08/2023 1:45 PM EDT [place] [address] Kelsea Shafer MD [facility] OBSTETRICS AND GYNECOLOGY [place], [place] 5[address] 11/08/2023 3:00 PM EDT Routine Obstetrics [place] [address] Lexii Berger CNM [facility] [place] [address] 05/23/2024 Hospital Encounter [place] [address] Maite Malloy MD [facility] [place] [address] documented as of this encounter Visit Diagnoses Not on filedocumented in this encounter Care Teams Margin Analyst Relationship Specialty Start Date End Date Valencia Adhikari APRN [address] [place] [address] PCP - General 04/21/14 07/04/23 documented as of this encounter
--- OUTSIDE RECORDS SUMMARY | 2023-10-31 03:19 | XMS_ITS | Encounter Summary ---
Author Organization [facility] Address [facility] [place] [address] Care Team Providers Care Search Director Name Role Phone Valencia Adhikari APRN Primary Care Provider +1 -[phone] Reason for Visit * Consultation (Routine) - Closed Specialty Diagnoses / Procedures Referred By Lamont riggins Referred To Contact Gastroenterology Diagnoses Irregular bowel habits Irregular bowel habits Valencia Adhikari APRN [address] [place] [address] [facility] [address] [address] Referral ID Status Reason Start Date Expiration Date V isits Requested Visits Authorized [id number] Closed Consult, Test & Treat 06/27/2021 06/27/2022 1 1 Encounter Details Date Type Department Care Team (Latest Contact Info) Description 07/14/2021 11:00 AM EDT TH Visit (TeleHealth) [place] [address] Margarita Hector APRN [facility] [place] [address] Vitamin D deficiency; Iron deficiency [...] DIAGNOSTIC C. Difficile Screen Stool Culture Screen ([facility]/P/APD/NL) Gliadin (Deamidated) Antibodies Calprotectin, Stool Elastase, Stool *Lab orders have been faxed to [facility]* Please call the GI department to schedule the investigations if you do not hear from us within 1-2 weeks: [phone]. Endoscopy Scheduling: please call [phone] to schedule the procedures we discussed during [...] Hector APRN Department of Gastroenterology and Hepatology [facility] Here is some information on the [...] disease, or Ulcerative colitis. Also if the end finder twisting department sees any polyps, they will be removed [...] Maite Flores APRN + Margarita Hector APRN [facility] What are functional [...] what is the impact? 15-20% of general [place] population has IBS or FD or both 2nd most common cause for lost work days (after common cold) in [place] Estimated $30 billion dollar cost to [place] economy per year These disorders can have [...] with immediate onset of symptoms after infection); intermediate symptoms are expected in most patients however [...] to you primary care provider and/or local end finder twisting department and share this document. Treatment of functional [...] - this approach benefits most patients OTC (akrw-njw-wiwaont) medications can be used for ongoing bothersome symptoms as listed below Your provider (PCP or local Gastroenterology provider or [facility] Gastroenterology provider) may decide to use prescription [...] All-Bran psyllium buds, Metamucil, Konsyl, bulk psyllium ([employer] and [employer] stores) Specifically we recommend starting Metamucil or [...] but convincing medical evidence is still lacking Kexq-equ-jxidypq supplements including probiotics are not typically evaluated [...] to decrease antibiotic-associated diarrhea and antibiotic-related infections Ijsq-lbi-Hwcsjxy Medications for Functional Gut Disorders Based on [...] a stool softener that is safe for intermediate usage (no risk of dependency) andthe dosage [...] (GERD) Often a combination of anti-nausea medications (dmyr-cbs-kuilgsw or prescription) works better thanhigh doses of [...] for misuse/misinterpretation of this information Patient Resources [place] [employer] https://www.gastro.org/practice-guidance/ty-mcrbjco-pgilkv/ topic/wuhowhwjw-ivbbw-ufojahpm-ibs Badgut.org https://badgut.org/information-centre/w-h-qrfeiasfi-topics/ibs/ AboutIBS.org https://www.aboutibs.org/ [employer]com https://www.uptodate.com/contents/uubareasx-hkhdt-npvgvzgp-lrihva-cux-poyjib documented in this encounter Progress Notes * aMrgarita Hector APRN - 07/14/2021 11:00 AM EDT [...] been inconsistent for past decade -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: low IgA when checking for celiac -celiac in uncle -sister and her have shi's -gluten free helped sister's symptoms -single mom: gluten free is challenging financially -irregular bowel movements: -diagnosed with IBS at 17: EGD/colonoscopy (polyps in colon?) BM: sometimes 5-6/day for a week, then normal daily [place]: variable consistency but usually 5-6 Endorses steatorrhea, [...] stressors with ex boyfriend and son 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 Nerves, Trunk Or Head (02510) (03/22/2011); [place] tooth extraction; Upper gastrointestinal endoscopy; Colonoscopy; and [...] anxiety, depression, s/p thyroidectomy. Pt reports previous EGD/[facility] in 2007 normal except for [...] to rule out Celiac/IBD/microscopic colitis. Labs to [facility], including gliadin antibodies. We discussed etiology and management for IBS-D vs celiac vs IBD: patient prefers non-pharmacologic management. Diagnostics: -EGD/colonoscopy MAC and biopsies -labs (including low IgA celiac testing): [facility], pt aware she may need to get some testing done at [facility] if not available at [facility] -consider referral to product scientist at follow up Therapeutics: -Begin Metamucil (make [...] LABS NEGATIVE ONLY -consider trial FODMAP diet/seeing product scientist after EGD/colo complete -can consider increasing mirtazapine [...] EGD/colo complete The patient was located in [place] at the time of their visit. TIME SPENT WITH PATIENT Time spent reviewing records prior to this encounter on day of appointment: 5 minutes Time spent during encounter with patient including counselin minutes Time spent documenting encounter after office visit: 10 minutes Margarita Hector APRN [facility] [place] [address] documented in this encounter Plan of Treatment Upcoming Encounters Date Type Department Care Team (Late st Contact Info) Description 11/08/2023 1:45 PM EDT [place] [address] Kelsea Shafer MD [facility] OBSTETRICS [place] [address] 11/08/2023 3:00 PM EDT Routine Obstetrics [place] [address] Ab, Lexii Khan, RAY [facility] [place] [address] 05/23/2024 Hospital [place] [address] Maite Malloy MD [facility] OBSTETRICS [place] [address] documented as of this encounter Visit Diagnoses [...] pain documented in this encounter Care Teams Search Director Relationship Specialty Start Date End Date Valencia Adhikari APRN [address] [place] [address] PCP - General 04/21/14 07/04/23 documented as of this encounter
--- OUTSIDE RECORDS SUMMARY | 2023-10-31 03:19 | XMS_ITS | Encounter Summary ---
Author Organization [facility] [place] [address] Care Team Providers Care Stenographer Print Shop Name Role Phone Valencia Adhikari APRN Primary Care Provider +1 -[phone] Encounter Details Date Type Department Care Team (Latest Contact Info) Description 07/29/2020 1:00 PM EDT TH Visit (TeleHealth) Psychiatry [place] [address] Lisa Dickens, PhD Borderline personality disorder; Unspecified [...] EDT INDIVIDUAL THERAPY PROGRESS NOTE CPT CODE 30545 LOCATION: Telehealth. Andree SinghTamara gave permission for and was seen for today's appointment with a Telehealth visit. During this visit she was located in her apartment in [place], [place]. Andree WallisKamranTamara is aware that for any urgent matter she can call [phone]. SESSION DURATION: 50 minutes ATTENDEES: Patient PRIMARY [...] Review the Mindfulness Skills handouts sent via [facility]. Practice Observe Skills. Next Appointment: 08/05/2020 Lisa Dickens, PhD documented in this encounter Plan of Treatment Upcoming Encounters Date Type Department Care Team (Late st Contact Info) Description 11/08/2023 1:45 PM EDT Appointment Ultrasound at [place] [phone] Kelsea Shafer MD [facility] [place] [address] 11/08/2023 3:00 PM EDT Routine Obstetrics and Gynecology at [place] [phone] Ab, Lexii Khan, CNM [facility] [place] [address] 05/23/2024 Hospital Encounter Birthing [place] [phone] Maite Malloy MD [facility] [place] [address] documented as of this encounter Visit Diagnoses Diagnosis Borderline personality disorder Unspecified mood (affective) disorder documented in this encounter Care Teams Stenographer Print Shop Relationship Specialty Start Date End Date Valencia Adhikari APRN [address] [place] [address] PCP - General 04/21/14 07/04/23 documented as of this encounter
--- OUTSIDE RECORDS SUMMARY | 2023-10-31 03:19 | XMS_ITS | Encounter Summary ---
Author Organization Formerly [facility] [place] [address] Care Team Providers Care Primary Health Care Nurse Name Role Phone Valencia Adhikari APRN Primary Care Provider +1 [phone] Encounter Details Date Type Department Care Team (Latest Contact Info) Description 05/09/2021 3:00 PM EST TH Visit (TeleHealth) Psychiatry and Behavioral Health at [facility] [place] [phone] Lisa Dickens, PhD Unspecified mood (affective) disorder; [...] EST INDIVIDUAL THERAPY PROGRESS NOTE CPT CODE 81029 LOCATION: Telehealth visit. Andree Artislliams gave permission for and was seen for today's appointment with a Telehealth visit. During this visit she was located in her apartment in [place], [place]. Andree WallisKamranTamara is aware that for any urgent matter she can can contact her regional mental health crisis services. For patients located in [place]: [email or web address] or text/call . Forpatients located in [place]: [email or web address]. To reach their [facility] mental health clinician or the outpatient Department of Psychiatry clinics,patient can call [phone]. SESSION DURATION: 40 minutes ATTENDEES: Patient PRIMARY [...] 11/08/2023 1:45 PM EDT [place] [phone] Kelsea Shafer MD [facility] OBSTETRICS [place] [address] 11/08/2023 3:00 PM EDT Routine Obstetrics [place] [phone] Ab, Lexii Khan, RAY [facility] [address] [place] [id number] 05/23/2024 Hospital [place] [address] Maite Malloy MD [facility] [place] [address] documented as of this encounter Visit Diagnoses Diagnosis Unspecified mood (affective) disorder Borderline personality disorder documented in this encounter Care Teams Primary Health Care Nurse Relationship Specialty Start Date End Date Valencia Adhikari APRN [address] [place] [address] PCP - General 04/21/14 07/04/23 documented as of this encounter
--- OUTSIDE RECORDS SUMMARY | 2023-10-31 03:19 | XMS_ITS | Encounter Summary ---
Author Organization [facility] Address [facility] [place] [address] Care Team Providers Care Boatswains Mate Name Role Phone Valencia Adhikari APRN Primary Care Provider [phone] [phone] Reason for Visit * Consultation (Routine) - Closed Specialty Diagnoses / Procedures Referred By Lamont riggins Referred To Contact Endocrinology Diagnoses Thyroiditis, unspecified Valencia Adhikari APRN [address] [place] [address] [facility] Endocrinology [address] [place] [id number] Referral ID Status Reason Start Date Expiration Date V isits Requested Visits Authorized [id number] Closed Consult, Test & [facility] PCP Updated and/or Approved 01/17/2021 01/17/2022 12 12 Encounter Details Date Type Department Care Team (Latest Contact Info) Description 04/26/2021 11:00 AM EST TH Visit (TeleHealth) [place] [address] Shelli Kearns MD [facility] [place] [address] Obinna's thyroiditis; Hypothyroidism, postsurgical; Vitamin [...] lesions: The specimen is serially sectioned and [facility] Provider: JUAN ESPARZA Pt. Name: ALONSO HUMMEL Acc #: [id number] Pt. Col Date: 03/22/2011 /Sex: 1990,(20 years),Female Rec Date: 03/22/2011 LOC: SDP SURGICAL PATHOLOGY demonstrates diffuse, tam-yellow, nodular proliferations in both lobes and isthmus. Contour/Capsule: The capsule of the thyroid appears to abut these nodules and is somewhat distortedby them. Sections/Processing: (1-20) serial sections of right lobe from superior to inferior; (21-40) left lobe from superior to inferior including enlarged parathyroid; (41-44) cash posting representative sections of isthmus; (45-50) serial sections [...] from outside and recheck lab soon at [facility] lab. If TSH remains high, we [...] Lab: check lab today or soon at [facility] for TSH, FT4, 25vitD, B12, iron/TIBC. [...] ?The specimen is serially sectioned and ? [facility] ? Provider: ?? JUAN ESPARZA Pt. Name: ?? ALONSO HUMMEL ? E ? Acc #: ?[id number] ?Pt. ? Col Date: ?? 03/22/2011 ? [...] from outside and recheck lab soon at [facility] lab. She feels tired all the [...] Not on file Occupational History ??? 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 Smoking status: Current Every [...] from outside and recheck lab soon at [facility] lab. If TSH remains high, we [...] Lab: check lab today or soon at [facility] for TSH, FT4, 25vitD, B12, iron/TIBC. [...] 11/08/2023 1:45 PM EDT Appointment [place] [address] Kelsea Shafer MD [facility] OBSTETRICS [place] [address] 11/08/2023 3:00 PM EDT Routine Obstetrics [place] [phone] Ab, Lexii Khan CNM [facility] [place] [address] 05/23/2024 Hospital [place] [phone] Maite Malloy MD [facility] DR OBSTETRICS [place] [address] documented as of this encounter Visit Diagnoses Diagnosis Obinna's thyroiditis Chronic lymphocytic thyroiditis Hypothyroidism, postsurgical Postsurgical hypothyroidism Vitamin D insufficiency Unspecified vitamin D deficiency Chronic fatigue Other malaise and fatigue documented in this encounter Care Teams Boatswains Mate Relationship Specialty Start Date End Date Valencia Adhikari APRN [address] [place] [address] PCP - General 04/21/14 07/04/23 documented as of this encounter
--- OUTSIDE RECORDS SUMMARY | 2023-10-31 03:19 | XMS_ITS | Encounter Summary ---
Author Organization [facility] [place] [address] Care Team Providers Care Community Development Coordinator Name Role Phone Valencia Adhikari APRN Primary Care Provider [phone] [phone] Encounter Details Date Type Department Care Team (Latest Contact Info) Description 09/01/2021 11:00 AM EDT TH Visit (TeleHealth) Psychiatry [place] [address] Lisa Dickens, PhD Borderline personality disorder; Unspecified [...] EDT INDIVIDUAL THERAPY PROGRESS NOTE CPT CODE 76519 LOCATION: Telehealth visit. Andree SinghTamara gave permission for and was seen for today's appointment with a Telehealth visit. During this visit she was located in her apartment in [place], [place]. Andree WallisKamranTamara is aware that for any urgent matter she can can contact her regional mental health crisis services. For patients located in [place]: [email or web address] or text/call . Forpatients located in [place]: [email or web address]. To reach their [facility] mental health clinician or the outpatient Department of Psychiatry clinics,patient can call [phone]. SESSION DURATION: 20 minutes ATTENDEES: Patient PRIMARY COMPLAINT/DIAGNOSIS: Borderline Personality Disorder; Unspecified Mood Disorder; R/O PTSD TREATMENT MODALITY: DBT PATIENT REPORT OF CURRENT FUNCTIONING/CHANGES: Patient reported: -doing better, the sun helps, gardening with son -work has been a joke--they cut her hours and haven't given them back, having to use sick time and PTO to fill in paycheck -trip to [place] at end of September, feels weird about it all, hasn't seen this extended family in 15 years -can't afford the gas to go to the [facility], had to cancel appointment scheduled for tomorrow -having problems with landlord -going over to closest friends today, then going on a date CENTRAL THEME OF SESSION: coping skills IN-SESSION PROCEDURES: I provided empathic listening and validation. I encouraged patient to contact [facility] and explain that she cannot afford the [...] 11/08/2023 1:45 PM EDT Appointment Ultrasound at [place] [phone] Kelsea Shafer MD [facility] OBSTETRICS [place] [address] 11/08/2023 3:00 PM EDT Routine Obstetrics [place] [address] Ab, Lexii C, CNM [facility] [place] [address] 05/23/2024 Hospital Encounter Birthing [place] [phone] Maite Malloy MD [facility] OBSTETRICS [place] [address] documented as of this encounter Visit Diagnoses Diagnosis Borderline personality disorder Unspecified mood (affective) disorder documented in this encounter Care Teams Community Development Coordinator Relationship Specialty Start Date End Date Valencia Adhikari APRN [address] [place] [address] PCP - General 04/21/14 07/04/23 documented as of this encounter
--- OUTSIDE RECORDS SUMMARY | 2023-10-31 03:19 | XMS_ITS | Encounter Summary ---
Author Organization [facility] [place] [address] Care Team Providers Care Head Of Business Development Name Role Phone Valencia Adhikari APRN Primary Care Provider [phone] [phone] Encounter Details Date Type Department Care Team (Latest Contact Info) Description 08/18/2021 9:18 PM EDT - 08/18/2021 11:59 PM EDT [place] [address] Substance use disorder Discharge Disposition: Home Social [...] Sig Dispensed Refills Start Date End Date venlafaxine (EFFEXOR-XR) 150 mg Capsule, Sust. Release [...] by mouth daily. 30 capsule 1 12/24/2018 levothyroxine (SYNTHROID) 200 mcg Tablet take 1 tablet by mouth once daily 0 05/23/2017 ergocalciferoL, vitamin D2, (vitamin D) 50,000 unit Capsule Take 1 capsule by mouth once a week. 13 capsule 4 05/10/2021 05/10/2022 documented as of this encounter Plan of Treatment Upcoming Encounters Date Type Department Care Team (Late st Contact Info) Description 11/08/2023 1:45 PM EDT [place] [phone] Kelsea Shafer MD [facility] OB[place] [address] 11/08/2023 3:00 PM EDT Routine Obstetrics [place] [address] Ab, Lexii Khan CNM [facility] [place] [address] 05/23/2024 [place] [address]1000 Maite Malloy MD [facility] OB[place] [address] documented as of this encounter Procedures Procedure Name Priority Date/Time Associated Diagnosis Comments OPIOIDS CONFIRMATION PANEL, URINE Routine 08/18/2021 1:30 PM EDT Substance use disorder RAPID DRUG SCREEN, COMPLIANCE MONITORING Routine 08/18/2021 1:30 PM EDT Substance use disorder HC URINE DRUG SCREEN BY INSTRUMENT Routine 08/18/2021 1:30 PM EDT Substance use disorder ALCOHOL BIOMARKERS CONFIRMATION Routine 08/18/2021 1:30 PM EDT HC P[facility] ALCOHOL BIOMARKERS, URINE Routine 08/18/2021 1:30 PM EDT Substance use disorder THC (MARIJUANA), URINE, CONFIRMATION Routine 08/18/2021 1:30 PM EDT documented in this encounter Results * Alcohol Biomarkers Confirmation (08/18/2021 1:30 PM EDT) Ethyl Glucuronide Cutoff: 250 ng/mL [facility] Comment: Test Performed by: [facility] [place] [address] Auto Air Conditioning Installer: Griffin Gustafson M.D. Ph.D.; CLIA# [id number] Ethyl Sulfate 2438 Cutoff: 100 ng/mL [facility] Comment: Test Performed by: [facility] [place] [address] Auto Air Conditioning Installer: Griffin Gustafson M.D. Ph.D.; CLIA# [id number] Ethyl Gluc/Sulfate Interpretation SEE COMMENTS [facility] Comment: Positive. A positive [...] developed and its performance characteristics determined by [facility] in a manner consistent with CLIA requirements. This test has not been cleared or approved by the U.S. Food and Drug Administration. Test Performed by: [facility] [address] [place] [address] Auto Air Conditioning Installer: Griffin Gustafson M.D. Ph.D.; CLIA# [id number] Urine 08/18/2021 1:30 PM EDT 08/19/2021 8:36 AM EDT Narrative Resulting Agency Comment Spec In Lab Jose Angel Miller MD CHEMISTRY ORDERABLES Performing Organization Address [facility]/State/[facility] Co de Phone Number [facility] [place] [address] * THC (Marijuana), Urine Confirmation (08/18/2021 1:30 [...] developed and its performance characteristics ?determined by [facility] in a manner consistent with CLIA ?requirements. This test has not been cleared or approved by ?the U.S. Food and Drug Administration. ?Test Performed by: ?[facility] ?[address] [place] [address] ?Auto Air Conditioning Installer: Griffin Gustafson M.D. Ph.D.; CLIA# [id number] [facility] Urine 08/18/2021 1:30 PM EDT 08/19/2021 8:36 AM EDT Narrative Resulting Agency Comment Spec In Lab Jose Angel Miller MD URINE ORDERABLES [facility] [place] [address] * Opioids Confirmation Panel, Urine (08/18/2021 1:30 PM EDT) Targeted Opioid Panel, Urine Test ?Result ? Flag ??Unit ?? RefValue ------- Targeted Opioid Screen, U ??List prescribed opioids ? See medication list ? ---ADDITIONAL INFORMATION------- ?Accuracy and completeness of declared medications on ?reports solely dependent on information submitted by ?client. ??Codeine ? Not Detected ? ng/mL ??Cutoff: 25 ?Tylenol 3 ??Dabhhyp-0-oadt-g lucuronide ?Not Detected ? ng/mL ??Cutoff: 100 ?Metabolite of codeine ??Morphine ?Not Detected ? ng/mL ??Cutoff: 25 ?Dana Salcedo, MS Contin; Also a minor metabolite (10%) of ?codeine and can be seen in low concentrations (<2,000 ?ng/mL) with poppy seed ingestion. ??Kommurog-2-kslm- glucuronide ? Not Detected ? ng/mL ??Cutoff: 100 ?Metabolite of morphine ??6-monoacetylmorp brigette ?Not Detected ? ng/mL ??Cutoff: 25 ?Metabolite of heroin ??Hydrocodone ? Not Detected ? ng/mL ??Cutoff: 25 ?Lortab, [place], Vicodin; Also a very minor metabolite of [...] ?Numorphan, Opana; Also a metabolite of oxycodone. ??Kdratmlwtdy-3-hb ta-glucuronide ?Not Detected ? ng/mL ??Cutoff: 100 [...] ?Not Detected ? ng/mL ??Cutoff: 25 ?Narcan ??Dfrnyurj-6-yefe- glucuronide ? Not Detected ? ng/mL ??Cutoff: [...] developed and its performance characteristics ?determined by [facility] in a manner consistent with CLIA ?requirements. This test has not been cleared or approved by ?the U.S. Food and Drug Administration. ?Test Performed by: ?[facility] ?[address] [place] [address] ?Auto Air Conditioning Installer: Griffin Gustafson M.D. Ph.D.; CLIA# [id number] [facility] Urine 08/18/2021 1:30 PM EDT 08/19/2021 8:36 AM EDT Jose Angel Miller MD URINE ORDERABLES [facility] [place] [address] * (ABNORMAL) Rapid Drug Screen, Compliance Monitoring (08/18/2021 1:30 PM EDT) U Barbiturates Screen None Detected None Detected [facility] Comment: The barbiturate screen [...] U Benzodiazepines Screen None Detected None Detected [facility] Comment: The benzodiazepines screen [...] U Cocaine Screen None Detected None Detected [facility] Comment: The cocaine metabolites screen detects benzoylecgonine (Cocaine Metabolite) at concentrations >150 ng/mL. A ? Presumptive Positive? result indicates that the screening result was positive but has not yet been confirmed by a highly-specific method. As with any screen, occasional false positive results from cross-reacting substances may occur. Not for Medico-Legal Purposes. U Cannabinoid Screen Presumptive Pos(A) None Detected [facility] Comment: The marijuana metabolites screen detects the THC metabolite (45-dth-6-carboxy-delta 9-THC) at concentrations >20 ng/mL. A ? Presumptive Positive? result indicates that the screening result was positive but has not yet been confirmed by a highly-specific method. As with any screen, occasional false positive results from cross-reacting substances may occur. Not for Medico-Legal Purposes. U Tricyclics Screen None Detected None Detected [facility] Comment: The tricyclics screen [...] U Ethanol Screen None Detected None Detected [facility] Comment:This urine ethanol a ssay detects ethanol at concentrations >/= 100 mg/L. U Amphetamines Screen None Detected None Detected [facility] Comment: The amphetamine screen detects d-amphetamine and d-methamphetamine at concentrations >300 ng/mL. A ? Presumptive Positive? result indicates that the screening result was positive but has not yet been confirmed by a highly-specific method. As with any screen, occasional false positive results from cross-reacting substances may occur. Not for Medico-Legal Purposes. U Adulterants Screen None Detected None Detected [facility] Comment: No adulteration or [...] Miller MD URINE ORDERABLES Performing Organization Address [facility] Co de Phone Number [facility] [place] [address] * (ABNORMAL) Alcohol Biomarkers (08/18/2021 1:30 PM EDT) Alcohol Biomarkers SEE COMMENT(A ) Cutoff: 500 ng/mL [facility] Comment: RESULT: Presumptive Positive Drug confirmation to follow. ??Presumptive Positive means that the screening method is positive, but the test needs to be run by a confirmatory method. ADDITIONAL INFORMATION This test was developed and its performance characteristics determined by [facility] in a manner consistent with CLIA requirements. This test has not been cleared or approved by the U.S. Food and Drug Administration. Test Performed by: [facility] [address] [place] [address] Auto Air Conditioning Installer: Griffin Gustafson M.D. Ph.D.; CLIA# [id number] Urine 08/18/2021 1:30 PM EDT 08/19/2021 8:36 AM EDT Narrative Resulting Agency Comment Spec In Lab Jose Angel Miller MD CHEMISTRY ORDERABLES Performing Organization Address [facility]/State/[place] [address] documented in this encounter Visit Diagnoses Diagnosis Substance use disorder documented in this encounter Care Teams Head Of Business Development Relationship Specialty Start Date End Date Valencia Adhikari APRN [address] [place] [address] PCP - General 04/21/14 07/04/23 documented as of this encounter
--- OUTSIDE RECORDS SUMMARY | 2023-10-31 03:19 | XMS_ITS | Encounter Summary ---
Author Organization [facility] Address [facility] [place] [address] Care Team Providers Care Professor Of Oceanography Name Role Phone OnofreMarilyn pittsadan Barton APRN Primary Care Provider [phone] Reason for Visit * Reason Onset Date Comments Medication Refill 05/11/2021 Encounter Details Date Type Department Care Team (Late st Contact Info) Description 05/11/2021 Ref[place] [address] Maite Goff, TRE Social History Tobacco Use Types Packs/Day Years [...] 11/08/2023 1:45 PM EDT [place] [address] Kelsea Shafer MD [facility] [address] OBSTET[place]ICS [place] [address] 11/08/2023 3:00 PM EDT Routine Obstetrics [place] [address] Ab, Lexii Khan CNM [facility] [place] [address] 05/23/2024 Hospital [facility] [place] [phone] Maite Malloy MD [facility] OBSTETRICS [place] [address] documented as of this encounter Visit Diagnoses Not on filedocumented in this encounter Care Teams Professor Of Oceanography Relationship Specialty Start Date End Date Valencia Adhikari APRN [address] [place] [address] PCP - General 04/21/14 07/04/23 documented as of this encounter
--- OUTSIDE RECORDS SUMMARY | 2023-10-31 03:19 | XMS_ITS | Encounter Summary ---
Author Organization [facility] [place] [address] Care Team Providers Care Waste Machine Tender Name Role Phone OnofreMarilynValencia Oralia SLADE Primary Care Provider +1 [phone] Encounter Details Date Type Department Care Team (Late st Contact Info) Description 12/13/2021 Telephone [place] [address] Peg Cast Social History Tobacco [...] 11/08/2023 1:45 PM EDT Appointment [place] [address] Kelsea Shafer MD [facility] DR OBSTETRICS [place] [address] 11/08/2023 3:00 PM EDT Routine Obstetrics [place] [address] Ab, Lexii Khan CNM [facility] [address] 05/23/2024 Hospital [place] [address] Maite Malloy MD [facility] DR OBSTETRICS AND GYNECOLOGY [place], [place] [address] documented as of this encounter Visit Diagnoses Not on filedocumented in this encounter Care Teams Waste Machine Tender Relationship Specialty Start Date End Date Valencia Adhikari APRN [address] [place] [address] PCP - General 04/21/14 07/04/23 documented as of this encounter
--- OUTSIDE RECORDS SUMMARY | 2023-10-31 03:19 | XMS_ITS | Encounter Summary ---
Author Organization [facility] Address [facility] [place] [address] Care Team Providers Care Tool Technician Name Role Phone Valencia Adhikari APRN Primary Care Provider [phone] [phone] Encounter Details Date Type Department Care Team (Late st Contact Info) Description 05/02/2021 Telephone Psychiatry and [place] [address] Mary Bateman Social History Tobacco [...] 11/08/2023 1:45 PM EDT Appointment [place] [address] Kelsea Shafer MD [facility] OBSTETRICS [place] [address] 11/08/2023 3:00 PM EDT Routine Obstetrics [place] [address] Lexii Berger CNM [facility] [place] [address] 05/23/2024 Hospital [place] [address] Maite Malloy MD [facility] OBSTETRICS [place] [address] documented as of this encounter Visit Diagnoses Not on filedocumented in this encounter Care Teams Tool Technician Relationship Specialty Start Date End Date Valencia Adhikari APRN [address] [place] [address] PCP - General 04/21/14 07/04/23 documented as of this encounter
--- OUTSIDE RECORDS SUMMARY | 2023-10-31 03:19 | XMS_ITS | Encounter Summary ---
[place] [address] Care Team Providers Care Trimmer Tailer Name Role Phone OnofreMarilynValenciaadan Barton APRN Primary Care Provider +1 -[phone] Encounter Details Date Type Department Care Team (Late st Contact Info) Description 12/07/2021 Telephone [place] [address] Magalie Pinon Social History Tobacco [...] calls can be handled by: Any Procedure Supervisor Opening And Picking documented in this encounter Plan of Treatment Upcoming Encounters Date Type Department Care Team (Late st Contact Info) Description 11/08/2023 1:45 PM EDT [place] [address] Kelsea Shafer MD [facility] OBSTET[place] [address] 11/08/2023 3:00 PM EDT Routine Obstetrics [place] [address] Ab, Lexii Khan, CNM [facility] [place] [address] 05/23/2024 [place] [address] Maite Malloy MD [facility] OBSTETRICS AND ILSA [place], [place] [phone] documented as of this encounter Visit Diagnoses Not on filedocumented in this encounter Care Teams Trimmer Tailer Relationship Specialty Start Date End Date Valencia Adhikari, [place] [address] [place] [address] PCP - General 04/21/14 07/04/23 documented as of this encounter
--- OUTSIDE RECORDS SUMMARY | 2023-10-31 03:19 | XMS_ITS | Encounter Summary ---
Author Organization [facility] [place] [address] Care Team Providers Care Sales Representative Church Furniture Name Role Phone OnofreMarilyn pittshryn Oralia BERLIN Primary Care Provider +1 -[phone] Encounter Details Date Type Department Care Team (Latest Contact Info) Description 08/01/2022 11:00 AM EDT TH Visit (TeleHealth) [place] [phone] Shelli Kearns MD [facility] [place] [address] PATIENT NOT SEEN Social History Tobacco Use [...] Upcoming Encounters Date Type Department Care Team ( Contact Info) Description 11/08/2023 1:45 PM EDT Appointment Ultrasound at [place] [phone] Kelsea Shafer MD [facility] [place] [address] 11/08/2023 3:00 PM EDT Routine Obstetrics and Gynecology at [place] [phone] Ab, Lexii C, [facility] [place] [address] 05/23/2024 Hospital Encounter Birthing [place] [phone] Maite Malloy MD [facility] [place] [address] documented as of this encounter Visit Diagnoses Diagnosis DH PATIENT NOT SEEN documented in this encounter Care Teams Sales Representative Church Furniture Relationship Specialty Start Date End Date Valencia Adhikari APRN [address] [place] [address] PCP - General 04/21/14 07/04/23 documented as of this encounter
--- OUTSIDE RECORDS SUMMARY | 2023-10-31 03:19 | XMS_ITS | Encounter Summary ---
Author Organization [facility] [place] [address] Care Team Providers Care Operations Professional Name Role Phone Valencia Adhikari APRN Primary Care Provider +1 -[phone] Encounter Details Date Type Department Care Team (Latest Contact Info) Description 08/04/2021 11:00 AM EDT TH Visit (TeleHealth) Psychiatry and Behavioral Health at [facility] [place] [address] Lisa Dickens, PhD Unspecified mood (affective) disorder; [...] EDT INDIVIDUAL THERAPY PROGRESS NOTE CPT CODE 94575 LOCATION: Telehealth visit. Andree SinghTamara gave permission for and was seen for today's appointment with a Telehealth visit. During this visit she was located in her apartment in [place], [place]. Andree WallisKamranTamara is aware that for any urgent matter she can can contact her regional mental health crisis services. For patients located in [place]: www.[facility] or text/call . Forpatients located in [place]: [email or web address]. To reach their [facility] mental health clinician or the outpatient Department of Psychiatry clinics,patient can call [phone]. SESSION DURATION: 40 minutes ATTENDEES: Patient PRIMARY COMPLAINT/DIAGNOSIS: Borderline Personality Disorder; Unspecified Mood Disorder; R/O PTSD TREATMENT MODALITY: DBT PATIENT REPORT OF CURRENT FUNCTIONING/CHANGES: Patient reported: -woke up today and has been crying all day, doesn't know why and doesn't like it -under immense stress, car is in shop and can't go to appt at [facility], hasn't been able to call a archivist economic history yet due to fears about how much [...] 11/08/2023 1:45 PM EDT Appointment Ultrasound at [place] [phone] Kelsea Shafer MD [facility] OBSTETRICS [place] [address] 11/08/2023 3:00 PM EDT Routine Obstetrics [place] [address] Ab, Lexii Khan, [place] [facility] [place] [address] 05/23/2024 Hospital Encounter Birthing [place] [phone] Maite Malloy MD [facility] OBSTETRICS [place] [address] documented as of this encounter Visit Diagnoses Diagnosis Unspecified mood (affective) disorder Borderline personality disorder documented in this encounter Care Teams Operations Professional Relationship Specialty Start Date End Date Valencia Adhikari APRN [address] [place] [address] PCP - General 04/21/14 07/04/23 documented as of this encounter
--- OUTSIDE RECORDS SUMMARY | 2023-10-31 03:19 | XMS_ITS | Encounter Summary ---
[place] [address] Care Team Providers Care Apprentice Instrument Technician Name Role Phone OnofreMarilynValencia H [place] Primary Care Provider +1 -[phone] Encounter Details Date Type Department Care Team (Late st Contact Info) Description 11/21/2021 Telephone [place] [address] Mgaalie Pinon Social History Tobacco Use Types Packs/Day [...] calls can be handled by: Any Procedure Home Care Rn documented in this encounter Plan of Treatment Upcoming Encounters Date Type Department Care Team (Late st Contact Info) Description 11/08/2023 1:45 PM EDT [place] [phone] Kelsea Shafer MD [facility] [place] [address] 11/08/2023 3:00 PM EDT Routine Obstetrics [place] [address] Ab, Lexii Khan, [facility] [place] [address] 05/23/2024 Hospital Encounter Birthing [place] [phone] Maite Malloy MD [facility] OBST[place] [address] documented as of this encounter Visit Diagnoses Not on filedocumented in this encounter Care Teams Apprentice Instrument Technician Relationship Specialty Start Date End Date Valencia Adhikari APRN [address] [place] [address] PCP - General 04/21/14 07/04/23 documented as of this encounter
--- OUTSIDE RECORDS SUMMARY | 2023-10-31 03:19 | XMS_ITS | Encounter Summary ---
Author Organization [facility] [place] [address] Care Team Providers Care Baker Chef Name Role Phone Valencia Adhikari APRN Primary Care Provider +1 -[phone] Encounter Details Date Type Department Care Team (Latest Contact Info) Description 05/30/2021 3:00 PM EST TH Visit (TeleHealth) Psychiatry and Behavioral Health at [facility] [place] [address] Lisa Dickens, PhD Unspecified mood (affective) disorder; [...] EST INDIVIDUAL THERAPY PROGRESS NOTE CPT CODE 39607 LOCATION: Telehealth visit. Andree Artislliams gave permission for and was seen for today's appointment with a Telehealth visit. During this visit she was located in her apartment in [place], [place]. Andree WallisKamranTamara is aware that for any urgent matter she can can contact her regional mental health crisis services. For patients located in [place]: www.[employer] or text/call . Forpatients located in [place]: [email or web address]. To reach their [facility] mental health clinician or the outpatient Department of Psychiatry clinics,patient can call [phone]. SESSION DURATION: 40 minutes ATTENDEES: Patient PRIMARY [...] 11/08/2023 1:45 PM EDT Appointment Ultrasound at [place] [phone] Kelsea Shafer MD [facility] [place] [address] 11/08/2023 3:00 PM EDT Routine Obstetrics and Gynecology at [place] [phone] Ab, Lexii Khan, CNM [facility] [place] [address] 05/23/2024 Hospital Encounter Birthing [place] [phone] Maite Malloy MD [facility] [place] [address] documented as of this encounter Visit Diagnoses Diagnosis Unspecified mood (affective) disorder Borderline personality disorder documented in this encounter Care Teams Baker Chef Relationship Specialty Start Date End Date Valencia Adhikari APRN [address] [place] [address] PCP - General 04/21/14 07/04/23 documented as of this encounter
--- OUTSIDE RECORDS SUMMARY | 2023-10-31 03:19 | XMS_ITS | Encounter Summary ---
Author Organization [facility] [place] [address] Care Team Providers Care Button And Buckle Maker Name Role Phone Valencia Adhikari APRN Primary Care Provider +1 -[phone] Encounter Details Date Type Department Care Team (Latest Contact Info) Description 05/16/2021 3:00 PM EST TH Visit (TeleHealth) Psychiatry and Behavioral Health at [facility] [place] [address] Lisa Dickens, PhD Unspecified mood (affective) disorder; [...] EST INDIVIDUAL THERAPY PROGRESS NOTE CPT CODE 97813 LOCATION: Telehealth visit. Andree Artislliams gave permission for and was seen for today's appointment with a Telehealth visit. During this visit she was located in her apartment in [place], [place]. Andree WallisKamranTamara is aware that for any urgent matter she can can contact her regional mental health crisis services. For patients located in [place]: www.[employer] or text/call . Forpatients located in [place]: [email or web address].[email or web address]. To reach their [facility] mental health clinician or the outpatient Department of Psychiatry clinics,patient can call [phone]. SESSION DURATION: 40 minutes ATTENDEES: Patient PRIMARY [...] 11/08/2023 1:45 PM EDT [place] [address] Kelsea Shafer MD [facility] OBSTETRICS [place] [address] 11/08/2023 3:00 PM EDT Routine [place]st[place] [address] Lexii Berger CNM [facility] [place] [address] 05/23/2024 [place] [address] [facility] OBSTETRICS [place] [address] documented as of this encounter Visit Diagnoses Diagnosis Unspecified mood (affective) disorder Borderline personality disorder documented in this encounter Care Teams Button And Buckle Maker Relationship Specialty Start Date End Date Valencia Adhikari APRN [address] [place] [address] PCP - General 04/21/14 07/04/23 documented as of this encounter
--- OUTSIDE RECORDS SUMMARY | 2023-10-31 03:20 | XMS_ITS | Encounter Summary ---
Author Organization [facility] [place] [address] Care Team Providers Care Multi Line Claims Adjuster Name Role Phone Valencia Adhikari APRN Primary Care Provider +1 -[phone] Encounter Details Date Type Department Care Team (Late st Contact Info) Description 08/22/2018 8:00 AM EDT Office Visit Psychiatry [place] [phone] Argelia Mccray CRIME LAB ANALYST [facility] [place] [address] Depression, unspecified depression type; Anxiety Social History [...] this encounter Progress Notes * Argelia Mccray, CRIME LAB ANALYST - 08/22/2018 8:00 AM EDT ESTABLISHED ADULT [...] abnormalities Social History: 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 Language: fluent in ukrainian ?? Mood: depressed ?? Affect: mood-congruent ?? [...] - 10.8 mcg/dL Final Comment: Reference Range: [place] Cord Blood: 6.9-14.4 mcg/dL Females: 7.2-14.2 mcg/dL Pediatric ranges: Interpret with caution-ranges have not been verified Free T4 Date Value Ref Range Status 07/04/2018 1.15 0.93 - 1.70 ng/dL Final Lipids and HgbA1C: No results found for: CHLPL, HDL, CHOLHDL, LDLCHOL, LDLDIRECT, TRIG No results found for: HA1C Vit Lvls: No results found for: [id number], SFOLATE Tox: No results found for: ETHANOL, ACTMNPHEN, SALICYLATE, LEAD No results found for: UDAUSCREEN Rx Lvls: Lamotrigine Lvl Date Value Ref Range Status 07/04/2018 3.2 2.5 - 15.0 mcg/mL Final Comment: ADDITIONAL INFORMATION This test was developed and its performance characteristics determined by [facility] in a manner consistent with CLIA requirements. This test has not been cleared or approved by the U.S. Food and Drug Administration. Test Performed by: [facility] [address] [place] [address] Formulation and Assessment: Overall Formulation: Andree Hummel [...] 11/08/2023 1:45 PM EDT Appointment Ultrasound at [facility] [place] [address] Kelsea Shafer MD [facility] DR OBSTETRICS [place] [address] 11/08/2023 3:00 PM EDT Routine Obstetrics [place] [address] Ab, Lexii Khan, [facility] [place] [address] 05/23/2024 [place] [address] Maite Malloy MD [facility] OBSTETRICS [place] [address] documented as of this encounter Visit Diagnoses Diagnosis Depression, unspecified depression type Anxiety Anxiety state, unspecified documented in this encounter Care Teams Multi Line Claims Adjuster Relationship Specialty Start Date End Date Valencia Adhikari APRN [address] [place] [address] PCP - General 04/21/14 07/04/23 documented as of this encounter
--- OUTSIDE RECORDS SUMMARY | 2023-10-31 03:20 | XMS_ITS | Encounter Summary ---
Author Organization [facility] Address [facility] [place] [address] Care Team Providers Care Hand Cooper Helper Name Role Phone OnofreValencia Oralia SLADE Primary Care Provider +1 -[phone] Encounter Details Date Type Department Care Team (Late st Contact Info) Description 07/16/2019 Orders Only Psychiatry and [place] [address] Argelia Mccray APRN [facility] [place] [address] Anxiety Social History Tobacco Use Types Packs/Day [...] 11/08/2023 1:45 PM EDT Appointment [place] [address] Kelsea Shafer MD [facility] OBSTET[place] [address] 11/08/2023 3:00 PM EDT Routine Obstetrics [place] [address] Ab, Lexii Khan CNM [facility] [place] [address] 05/23/2024 [place] [address] Maite Malloy MD [facility] OBSTETRICS [place] [address] documented as of this encounter Visit Diagnoses Diagnosis Anxiety Anxiety state, unspecified documented in this encounter Care Teams Hand Cooper Helper Relationship Specialty Start Date End Date Valencia Adhikari APRN [address] [place] [address] PCP - General 04/21/14 07/04/23 documented as of this encounter
--- OUTSIDE RECORDS SUMMARY | 2023-10-31 03:20 | XMS_ITS | Encounter Summary ---
Author Organization [facility] Address [facility] [place] [address] Care Team Providers Care Police Chief Name Role Phone Valencia Adhikari APRN Primary Care Provider +1 -[phone] Encounter Details Date Type Department Care Team (Late st Contact Info) Description 10/03/2018 Telephone Psychiatry and [place] [phone] Argelia Mccary APRN [facility] [place] [place] [address] Social History Tobacco Use Types Packs/Day Years [...] 11/08/2023 1:45 PM EDT Appointment Ultrasound at [address] Kelsea Shafer MD [facility] OBSTETRICS [place] [address] 11/08/2023 3:00 PM EDT Routine Obstetrics and Gynecology at [place] [phone] Ab, Lexii C, [facility] [place] [address] 05/23/2024 Hospital Encounter Birthing [place] [phone] Maite Malloy MD [facility] OBSTETRICS [place] [address] documented as of this encounter Visit Diagnoses Not on filedocumented in this encounter Care Teams Police Chief Relationship Specialty Start Date End Date Valencia Adhikari APRN [address] [place] [address] PCP - General 04/21/14 07/04/23 documented as of this encounter
--- OUTSIDE RECORDS SUMMARY | 2023-10-31 03:20 | XMS_ITS | Encounter Summary ---
Author Organization [facility] [place] [address] Care Team Providers Care Radio Frequency Technician Name Role Phone Valencia Adhikari APRN Primary Care Provider +1 -[phone] Encounter Details Date Type Department Care Team (Latest Contact Info) Description 11/27/2019 8:30 AM EDT TH Visit (TeleHealth) Psychiatry [place] [phone] Argelia Mccray ACCOUNTS PAYABLE SPECIALIST [facility] [place] [address] Depression, unspecified depression type; Anxiety Social History [...] abnormalities Social History: 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 Language: fluent in czech ?? Mood: anxious ?? Affect: mood-congruent ?? [...] - 10.8 mcg/dL Final Comment: Reference Range: [place] Cord Blood: 6.9-14.4 mcg/dL Females: 7.2-14.2 mcg/dL Pediatric ranges: Interpret with caution-ranges have not been verified Free T4 Date Value Ref Range Status 07/04/2018 1.15 0.93 - 1.70 ng/dL Final Lipids and HgbA1C: No results found for: CHLPL, HDL, CHOLHDL, LDLCHOL, LDLDIRECT, TRIG No results found for: HA1C Vit Lvls: No results found for: [id number], SFOLATE Tox: No results found for: ETHANOL, ACTMNPHEN, SALICYLATE, LEAD No results found for: UDAUSCREEN Rx Lvls: Lamotrigine Lvl Date Value Ref Range Status 07/04/2018 3.2 2.5 - 15.0 mcg/mL Final Comment: ADDITIONAL INFORMATION This test was developed and its performance characteristics determined by [facility] in a manner consistent with CLIA requirements. This test has not been cleared or approved by the U.S. Food and Drug Administration. Test Performed by: [facility] [place] [id number] Formulation and Assessment: Overall Formulation: Andree SinghTamara [...] been searching for a therapist and this selling underwriter willsend her additional resources. We also [...] PM EDT Appointment Ultrasound at [place] [phone] Kelsea Shafer MD [facility] OBSTETRICS [place] [address] 11/08/2023 3:00 PM EDT Routine Obstetrics [place] [address] Ab, Lexii C, CNM [facility] [place] [address] 05/23/2024 Hospital Encounter Birthing [place] [phone] Maite Malloy MD [facility] OBSTETRICS [place] [address] documented as of this encounter Visit Diagnoses Diagnosis Depression, unspecified depression type Anxiety Anxiety state, unspecified documented in this encounter Care Teams Radio Frequency Technician Relationship Specialty Start Date End Date Valencia Adhikari APRN [address] [place] [address] PCP - General 04/21/14 07/04/23 documented as of this encounter
--- OUTSIDE RECORDS SUMMARY | 2023-10-31 03:20 | XMS_ITS | Encounter Summary ---
Author Organization [facility] Address [facility] [place] [address] Care Team Providers Care Soldering Machine Operator Name Role Phone Valencia Adhikari APRN Primary Care Provider +1 -[phone] Reason for Referral * Consultation (Routine) - Closed Specialty Diagnoses / Procedures Referred By Lamont riggins Referred To Contact Pain Management Diagnoses Scapular dyskinesis Alicia Oviedo APRN [facility] [place] [address] [facility] [address] [place] [address] Referral ID Status Reason Start Date Expiration Date V isits Requested Visits Authorized [id number] Closed Consult, Test & Treat 11/16/2017 11/16/2018 1 1 Reason for Visit * Reason Comments Left Shoulder Pain workers comp DOI Encounter Details Date Type Department Care Team (Late st Contact Info) Description 11/16/2017 10:20 AM EDT Office [place] [address] Alicia Oviedo APRN [facility] [place] [address] Scapular dyskinesis (Primary Dx); Chronic [...] this encounter Progress Notes * Alicia Oviedo, EMBEDDED SOFTWARE MANAGER - 11/16/2017 10:20 AM EDT Chief complaint: chronic work related LEFT shoulder pain Problem List Items Addressed This Visit Chronic left shoulder pain Scapular dyskinesis Work Related : YES DOI: 09/06/2017 History of present illness: [facility] is a 27 y.o. year-old female is [...] she may need to consider a functional hoahaoism program and alternate vocation. Pt agrees, questions [...] 11/08/2023 1:45 PM EDT Appoint[place] [address] Kelsea Shafer MD [facility] OBSTETRICS [place] [address] 11/08/2023 3:00 PM EDT Routine Obstetrics [place] [address] Ab, Lexii Khan, CNM [facility] [place] [address] 05/23/2024 Hospital [place] [address] Maite Malloy MD [facility] [place] [address] Scheduled Referrals Name Type Priority Associated Diagnoses Orde r Schedule Referral to Pain Clinic Outpatient Referral Routine Scapular dyskinesis Ordered: 11/16/2017 documented as of this encounter Visit Diagnoses Diagnosis Scapular dyskinesis- Primary Lack of coordination Chronic left shoulder pain Pain in joint, shoulder region documented in this encounter Care Teams Soldering Machine Operator Relationship Specialty Start Date End Date Valencia Adhikari APRN [address] [place] [address] PCP - General 04/21/14 07/04/23 documented as of this encounter
--- OUTSIDE RECORDS SUMMARY | 2023-10-31 03:20 | XMS_ITS | Encounter Summary ---
Author Organization [facility] Address [facility] [place] [address] Care Team Providers Care Sewer Cleaner Name Role Phone OnofreMarilynValenciaadan Barton APRN Primary Care Provider [phone] [phone] Reason for Visit * Reason Onset Date Comments Medication Refill 01/31/2018 Encounter Details Date Type Department Care Team (Late st Contact Info) Description 01/31/2018 Refill Psychiatry [place] [address] Osmar South RN Depression, unspecified depression type; [...] 11/08/2023 1:45 PM EDT Appointment [place] [address] Kelsea Shafer MD [facility] [place] [address] 11/08/2023 3:00 PM EDT Routine Obstetrics [place] [address] Ab, Lexii Khan CNM [facility] [place] [address] 05/23/2024 Hospital [place] [address] Maite Malloy MD [facility] OBSTETRICS [place] [address] documented as of this encounter Visit Diagnoses Diagnosis Depression, unspecified depression type Anxiety Anxiety state, unspecified documented in this encounter Care Teams Sewer Cleaner Relationship Specialty Start Date End Date Valencia Adhikari APRN [address] [place] [address] PCP - General 04/21/14 07/04/23 documented as of this encounter
--- OUTSIDE RECORDS SUMMARY | 2023-10-31 03:20 | XMS_ITS | Encounter Summary ---
Author Organization [facility] [place] [address] Care Team Providers Care Media Production Support Manager Name Role Phone OnofreMarilynValenciaadan Barton APRN Primary Care Provider [phone] [phone] Reason for Visit * Reason Onset Date Comments Medication Refill 12/24/2018 Encounter Details Date Type Department Care Team (Late st Contact Info) Description 12/24/2018 [place] [address] Alicia Oviedo APRN [facility] [place] [address] Scapular dyskinesis; Left shoulder pain, unspecified chronicity [...] 11/08/2023 1:45 PM EDT [place] [phone] Kelsea Shafer MD [facility] OBST[facility] [place] [address] 11/08/2023 3:00 PM EDT Routine Obstetrics [place] [address] Lexii Berger CNM [place] [address] 05/23/2024 [place] [address] Maite Malloy MD [facility]ST[facility] [address] documented as of this encounter Visit Diagnoses Diagnosis Scapular dyskinesis Lack of coordination Left shoulder pain, unspecified chronicity documented in this encounter Care Teams Media Production Support Manager Relationship Specialty Start Date End Date Valencia Adhikari APRN [address] [place] [address] PCP - General 04/21/14 07/04/23 documented as of this encounter
--- OUTSIDE RECORDS SUMMARY | 2023-10-31 03:20 | XMS_ITS | Encounter Summary ---
Author Organization [facility] [place] [address] Care Team Providers Care Food Service Aide Name Role Phone Valencia Adhikari APRN Primary Care Provider [phone] [phone] Encounter Details Date Type Department Care Team (Late st Contact Info) Description 05/11/2020 Telephone Psychiatry [place] [address] Sary Harris Social History Tobacco [...] Department Care Team (Late Contact Info) Description 11/08/2023 1:45 PM EDT [place] [phone] Kelsea Shafer MD [facility] OBSTETRICS [place] [address] 11/08/2023 3:00 PM EDT Routine Obstetrics [place] [address] Ab, Lexii C, [facility] [place] [address] 05/23/2024 Hospital Encounter Birthing [place] [phone] Maite Malloy MD [facility] OBSTETR[place] [address] documented as of this encounter Visit Diagnoses Not on filedocumented in this encounter Care Teams Food Service Aide Relationship Specialty Start Date End Date Valencia Adhikari APRN [address] [place] [address] PCP - General 04/21/14 07/04/23 documented as of this encounter
--- OUTSIDE RECORDS SUMMARY | 2023-10-31 03:20 | XMS_ITS | Encounter Summary ---
Author Organization [facility] Address [facility] [place] [address] Care Team Providers Care Manager Farm Name Role Phone OnofreValencia pitts Oralia SLADE Primary Care Provider [phone] [phone] Encounter Details Date Type Department Care Team (Late st Contact Info) Description 07/21/2019 Orders Only Psychiatry [place] [phone] Argelia Mccray APRN [facility] [place] [place] [address] Depression, unspecified depression type; Anxiety Social History [...] 11/08/2023 1:45 PM EDT [place] [address] Kelsea Shafer MD [facility] OBSTETRICS AND GYNECOLOGY [place], [place] [phone] 11/08/2023 3:00 PM EDT Routine Obstetrics [place] [phone] Ab, Lexii Khan CNM [facility] [place] [address] 05/23/2024 Hospital [place] [address] Maite Malloy MD [facility] OBSTETRICS [place] [address] documented as of this encounter Visit Diagnoses Diagnosis Depression, unspecified depression type Anxiety Anxiety state, unspecified documented in this encounter Care Teams Manager Farm Relationship Specialty Start Date End Date Valencia Adhikari APRN [address] [place] [address] PCP - General 04/21/14 07/04/23 documented as of this encounter
--- OUTSIDE RECORDS SUMMARY | 2023-10-31 03:20 | XMS_ITS | Encounter Summary ---
Author Organization [facility] Address [facility] [place] [address] Care Team Providers Care Bulldogger Name Role Phone Valencia Adhikari APRN Primary Care Provider [phone] [phone] Encounter Details Date Type Department Care Team (Late st Contact Info) Description 05/03/2020 10:30 AM EST TH Visit (TeleHealth) Psychiatry [place] [phone] Crispin Fuller MD [facility] [place] [address] Hyperthyroidism Social History Tobacco Use Types Packs/Day [...] Attendee(s): Patient This patient was seen with maintenance mechanic supervisor Dr. Awad. See their note for confirmatory and/or revisionarydocumentation. Andree Hummel gave permission for and was seen for today's appointment with a Telehealth visit. During this visit they were located in [place]. Andree Hummel is aware that for any urgent matter they can call [phone]. Chief Complaint: a lot has been going on History of Present Illness: () (Quality, Severity, Duration, Timing, Context, Modifying factors, Associated S&S) Andree Hummel is a 29 y.o. female with history of depression, anxiety, and hyperthyroidism s/p thyroidectomy presenting for follow-up and medication management. -Reports she has been busy since we last spoke. She lost her job at [employer],and started working at [employer]. Endorses multiple psychosocial stressors including father with [...] cats and a dog. 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 Vitals (24hr Range): No data found. Musculoskeletal System: normal gait and balance, ambulates independently and no atrophy Mental Status Exam: ?? Appearance: age appropriate and casually dressed ?? Behavior: cooperative with the interview and calm ?? Speech: normal pitch, normal volume, normal rate and normal rhythm ?? Language: fluent in slovenian ?? Mood: not great ?? 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 No suicidal ideation. Having difficulty taking medication consistently. No medication changes today--focus on regular adherence first. Jessica Awad MD documented in this encounter Plan of Treatment Upcoming Encounters Date Type Department Care Team (Late st Contact Info) Description 11/08/2023 1:45 PM EDT Appointment Ultrasound at [place] [phone] Kelsea Shafer MD [facility] [address] OBSTETRICS [place] [address] 11/08/2023 3:00 PM EDT Routine Obstetrics [place] [address] Ab, Lexii Khan, [facility] [place] [address] 05/23/2024 Hospital Encounter Birthing [place] [phone] Maite Malloy MD [facility] OBSTETRICS [place] [address] documented as of this encounter Visit Diagnoses Diagnosis Hyperthyroidism Thyrotoxicosis without mention of goiter or other cause, without mention of thyrotoxic crisis or storm documented in this encounter Care Teams Bulldogger Relationship Specialty Start Date End Date Valencia Adhikari APRN [address] [place] [address] PCP - General 04/21/14 07/04/23 documented as of this encounter
--- OUTSIDE RECORDS SUMMARY | 2023-10-31 03:20 | XMS_ITS | Encounter Summary ---
Author Organization [facility] [place] [address] Care Team Providers Care Agency Sales Management Assistant Name Role Phone OnofreMarilynValenciaadan Barton APRN Primary Care Provider [phone] [phone] Reason for Visit * Reason Onset Date Comments Medication Refill 10/13/2019 Encounter Details Date Type Department Care Team (Late st Contact Info) Description 10/13/2019 Refill Psychiatry [place] [address] Argelia Mccray APRN [facility] [place] [place] [address] Depression, unspecified depression type Social History Tobacco [...] 11/08/2023 1:45 PM EDT [place] [address] Kelsea Shafer MD [facility] OBSTETRICS [place] [address] 11/08/2023 3:00 PM EDT Routine Obstetrics [place] [phone] Lexii Berger, JAYNEM [facility] [place] [address] 05/23/2024 [place] [phone] Maite Malloy MD [facility] OBSTETRICS [place] [address] documented as of this encounter Visit Diagnoses Diagnosis Depression, unspecified depression type documented in this encounter Care Teams Agency Sales Management Assistant Relationship Specialty Start Date End Date Valencia Adhikari APRN [address] [place] [address] PCP - General 04/21/14 07/04/23 documented as of this encounter
--- OUTSIDE RECORDS SUMMARY | 2023-10-31 03:20 | XMS_ITS | Encounter Summary ---
Author Organization [facility] Address [facility] [place] [address] Care Team Providers Care Healthcare Manager Name Role Phone OnofreValencia pitts Oralia SLADE Primary Care Provider +1 [phone] Encounter Details Date Type Department Care Team (Late st Contact Info) Description 10/28/2018 Orders Only Psychiatry [place] [phone] Argelia Mccray APRN [facility] [place] [address] Anxiety Social History Tobacco Use Types Packs/Day [...] 11/08/2023 1:45 PM EDT Appointment [place] [address] Kelsea Shafer MD [facility] [place] [address] 11/08/2023 3:00 PM EDT Routine Obstetrics [place] [address] Ab, Lexii Khan CNM [facility] [place] [address] 05/23/2024 Hospital [place] [address] Maite Malloy MD [facility] OBSTETRICS [place] [address] documented as of this encounter Visit Diagnoses Diagnosis Anxiety Anxiety state, unspecified documented in this encounter Care Teams Healthcare Manager Relationship Specialty Start Date End Date Valencia Adhikari APRN [address] [place] [address] PCP - General 04/21/14 07/04/23 documented as of this encounter
--- OUTSIDE RECORDS SUMMARY | 2023-10-31 03:20 | XMS_ITS | Encounter Summary ---
Author Organization [facility] [place] [address] Care Team Providers Care Data Security Analyst Name Role Phone Valencia Adhikari APRN Primary Care Provider [phone] [phone] Encounter Details Date Type Department Care Team (Late st Contact Info) Description 07/04/2018 8:30 AM EDT Office Visit Psychiatry and Behavioral [place] [address] Argelia Mccray STRAPPER OPERATOR [facility] [place] [address] Bipolar II disorder; Depression, unspecified depression type; [...] so soon - continues to work at [employer] Substance Use: Tobacco use Safety: Low, no [...] abnormalities Social History: 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 Language: fluent in moldovan ?? Mood: Anxious ?? Affect: mood-congruent ?? [...] in these patients send serum separator tube ([facility] top) for subsequent determinations. Contact the Clinical [...] HA1C Vit Lvls: No results found for: [id number], SFOLATE Tox: No results found for: ETHANOL, ACTMNPHEN, SALICYLATE, LEAD No results found for: UDAUSCREEN Rx Lvls: Lamotrigine Lvl Date Value Ref Range Status 10/04/2017 1.4 (L) 2.5 - 15.0 mcg/mL Final Comment: ADDITIONAL INFORMATION This test was developed and its performance characteristics determined by [facility] in a manner consistent with CLIA requirements. This test has not been cleared or approved by the U.S. Food and Drug Administration. Test Performed by: [facility] - [facility] [address] [place] [address] Formulation and Assessment: Overall Formulation: Andree nUderwoodWilliams is a 28 y.o. Female depression (likely [...] 11/08/2023 1:45 PM EDT Appointment Ultrasound [place] [address] Kelsea Shafer MD [facility] DR OBSTETRICS [place] [address] 11/08/2023 3:00 PM EDT Routine Obstetrics and Gynecology at [facility] [place] [address] Ab, Lexii Khan, RAY [facility] [place] [address] 05/23/2024 Hospital Encounter Birthing [place] [facility] [place] [address] Maite Malloy MD [facility] OBSTETRICS [place] [address] documented as of this encounter Procedures Procedure [...] 9:44 AM EDT) Neutrophils % 60.9 % [facility]IGAIL Oralia [facility] Neutr Abs (ANC) 4.46 1.70 - 6.10 x10(3)/[facility] LAB[facility] Lymphocytes % 28.5 % [facility] Lymphocytes Abs 2.1 0.9 - 3.2 x10(3)/[facility] Monocytes % 8.6 % [facility] Monocyte Abs 0.6 0.3 - 0.9 x10(3)/[facility] LABOR[facility]ORY Eosinophils % 1.2 % [facility] Eosinophils Abs 0.1 0.0 - 0.4 x10(3)/[facility] LABOR[facility]ORY Basophils % 0.5 % [facility] Basophils Abs 0.0 0.0 - 0.1 x10(3)/[facility] LABORATORY Immature Gran % 0.30 % [facility] Comment: Immature granulocytes(IG's)percentage and absolute count will include metamyelocytes, myelocytes, and promyelocytes. Blood smears from CBCs yielding IG's will be scanned manually for concordance. If this scan disagrees with the automated IG or if promyelocytes are noted, a manual differential will be performed. Kimmy Gran Abs 0.02 0.00 - 0.04 x10(3)/[facility] LABORATORY Blood specimen (specimen) 07/04/2018 9:44 AM EDT 07/04/2018 10:05 AM EDT Narrative Resulting Agency Comment Spec In Lab Argelia Mccray APRN HEMATOLOGY ORDE [facility] [place] [address] * (ABNORMAL) Hemogram (07/04/2018 9:44 AM EDT) WBC 7.3 4.0 - 9.5 x10(3)/[facility] LABORATORY RBC 3.84(L) 4.00 - 5.21 x10(6)/[facility] Hemoglobin 12.9 11.7 - 15.5 gm/dL [facility] Hematocrit 38.7 35.7 - 45.8 % [facility] MCV 100.8(H) 82.6 - 94.4 fL [facility] MCH 33.6(H) 27.1 - 32.0 pg [facility] MCHC 33.3 31.7 - 35.0 gm/dL [facility] Platelets 216 145 - 357 x10(3)/[facility] LABORATORY RDWSD 47.5(H) 37.0 - 46.0 fL [facility] RDWCV 12.8 11.5 - 14.1 % [facility] MPV 11.6 7.6 - 12.9 [facility] nRBC % Auto 0.0 % [facility] nRBC Abs Auto 0.000 0.000 - 0.000 x10(3)/[facility] LABORAT[facility] Blood specimen (specimen) 07/04/2018 9:44 AM EDT 07/04/2018 10:05 AM EDT Narrative Resulting Agency Comment Spec In Lab Argelia Mccray APRN HEMATOLOGY [place] [facility] [place] [address] * Lamotrigine Lvl (07/04/2018 9:44 AM EDT) Lamotrigine Lvl 3.2 2.5 - 15.0 mcg/mL [facility] Comment: ADDITIONAL INFORMATION This test was developed and its performance characteristics determined by [facility] in a manner consistent with CLIA requirements. This test has not been cleared or approved by the U.S. Food and Drug Administration. Test Performed by: [facility] - [address] [address] Blood specimen (specimen) 07/04/2018 9:44 AM EDT 07/04/2018 12:33 PM EDT Narrative Resulting Agency Comment Spec In Lab Argelia Mccray APRN CHEMISTRY ORDER AMANDA [facility] [place] [address] * Comprehensive metabolic panel (non-fasting) (07/04/2018 9:44 AM EDT) Glucose Lvl 90 65 - 199 mg/dL [facility] Comment:Diabetes: >=200 mg/d L plus symptoms BUN 9 8 - 18 mg/dL [facility] Creatinine 0.78 0.70 - 1.20 mg/dL [facility] Sodium 138 135 - 145 mmol/L [facility] Potassium 3.9 3.5 - 5.0 mmol/L [facility] Comment: Please note: ??Patients with WBC >100,000 may have falsely elevated Potassium levels. ??For accurate Potassium quantification in these patients send serum separator tube (gold top) for subsequent determinations. ??Contact the Clinical Chemistry Laboratory if there are any questions. Chloride 101 98 - 107 mmol/L [facility] CO2 26 22 - 31 mmol/L [facility] Anion Gap 11 5 - 15 mmol/L [facility] Calcium 9.1 8.5 - 10.5 mg/dL [facility] Total Protein 6.4 6.1 - 8.0 gm/dL [facility] Albumin 4.2 3.2 - 5.2 gm/dL [facility] AST 12 0 - 30 unit/L [facility] ALT 10 0 - 30 unit/L [facility] Alk Phos 79 40 - 104 unit/L [facility] Total Bilirubin 0.4 0.2 - 1.3 mg/dL [facility] Estimated GFR 104 >=60 mL/min/1. 73 m?? [facility] Comment: The eGFR was calculated using the CKD-EPI equation. As with all creatinine based estimates of kidney function, eGFR values calculated with the CKD-EPI equation are not accurate in patients with acute kidney failure, extremes of body mass or the acutely ill. [email or web address] eGFR 121 >=60 mL/min/1. 73 m?? [facility] Comment: The eGFR was calculated using the CKD-EPI equation. As with all creatinine based estimates of kidney function, eGFR values calculated with the CKD-EPI equation are not accurate in patients with acute kidney failure, extremes of body mass or the acutely ill. [email or web address] Blood specimen (specimen) 07/04/2018 9:44 AM EDT 07/04/2018 10:04 AM EDT Narrative Resulting Agency Comment Spec In Lab Argelia Naranjo Shazia STRAPPER OPERATOR CHEMISTRY ORDER AMANDA [facility] [place] [address] * (ABNORMAL) TSH (07/04/2018 9:44 AM EDT) TSH 7.30(H) 0.27 - 4.20 mcIU/mL [facility] Blood specimen (specimen) 07/04/2018 9:44 AM EDT 07/04/2018 10:04 AM EDT Narrative Resulting Agency Comment Spec In Lab Zaynabjeff Naranjo Shazia STRAPPER OPERATOR CHEMISTRY ORDER AMANDA [facility] [place] [address] * Thyroglobulin Antibody (07/04/2018 9:44 AM EDT) Thyroglob Ab <20.0 0.0 - 40.0 IU/mL [facility] Blood specimen (specimen) 07/04/2018 9:44 AM EDT 07/04/2018 2:05 PM EDT Narrative Resulting Agency Comment Spec In Lab Argelia Mccray APRN CHEMISTRY ORDER AMANDA [facility] [place] [address] * T4, free (07/04/2018 9:44 AM EDT) Free T4 1.15 0.93 - 1.70 ng/dL [facility] Blood specimen (specimen) 07/04/2018 9:44 AM EDT 07/04/2018 10:04 AM EDT Narrative Resulting Agency Comment Spec In Lab Argelia Mccray APRN CHEMISTRY ORDER AMANDA Performing Organization Address City/[facility] Co de Phone Number [facility] [place] [address] * T4 Total (07/04/2018 9:44 AM EDT) T4, total 5.7 5.1 - 10.8 mcg/dL [facility] Comment: Reference Range: Cord Blood: ??6.9-14.4 mcg/dL Females: ??7.2-14.2 mcg/dL Pediatric ranges: ??Interpret with caution-ranges have not been verified Blood specimen (specimen) 07/04/2018 9:44 AM EDT 07/04/2018 10:04 AM EDT Narrative Resulting Agency Comment Spec In Lab Argelia Mccray APRN CHEMISTRY ORDER AMANDA Performing Organization Address City/[facility]/ZIP Co de Phone Number [facility] [place] [address] * T3, free (07/04/2018 9:44 AM EDT) T3, Free 2.6 2.0 - 4.4 pg/mL [facility] Blood specimen (specimen) 07/04/2018 9:44 AM EDT 07/04/2018 10:04 AM EDT Narrative Resulting Agency Comment Spec In Lab Zaynabjeff Naranjo Shazia SLADE CHEMISTRY ORDER AMANDA [facility] [place] [address] documented in this encounter Visit Diagnoses Diagnosis Bipolar II disorder Other bipolar disorders Depression, unspecified depression type Anxiety Anxiety state, unspecified documented in this encounter Care Teams Data Security Analyst Relationship Specialty Start Date End Date Valencia Adhikari APRN [address] [place] [address] PCP - General 04/21/14 07/04/23 documented as of this encounter
--- OUTSIDE RECORDS SUMMARY | 2023-10-31 03:20 | XMS_ITS | Encounter Summary ---
Author Organization [facility] Address [facility] [place] [address] Care Team Providers Care Furnace Process Supervisor Name Role Phone Valencia Adhikari APRN Primary Care Provider +1 [phone] Encounter Details Date Type Department Care Team (Late st Contact Info) Description 05/07/2020 Telephone Psychiatry [place] [address] Mary Bateman Social History Tobacco [...] 11/08/2023 1:45 PM EDT Appointment [place] [address] Kelsea Shafer MD [facility] [address] OBSTETRICS [place] [address] 11/08/2023 3:00 PM EDT Routine Obstetrics [place] [address] Lexii Berger CNM [facility] [place] [address] 05/23/2024 Hospital Encounter Birthing [facility] [place] [address] Maite Malloy MD [facility] OBSTETRICS [place] [address] documented as of this encounter Visit Diagnoses Not on filedocumented in this encounter Care Teams Furnace Process Supervisor Relationship Specialty Start Date End Date Valencia Adhikari APRN [address] [place] [address] PCP - General 04/21/14 07/04/23 documented as of this encounter
--- OUTSIDE RECORDS SUMMARY | 2023-10-31 03:20 | XMS_ITS | Encounter Summary ---
Author Organization [facility] Address [facility] [place] [address] Care Team Providers Care Relationship Executive Name Role Phone Richard Rasheed MD Primary Care Provider [phone] Reason for Visit * Reason Onset Date Comments Medication Refill 09/02/2018 Encounter Details Date Type Department Care Team (Late st Contact Info) Description 09/02/2018 Refill Psychiatry [place] [address] Argelia Mccray APRN [facility] [place] [address] Anxiety Social History Tobacco Use Types Packs/Day [...] 11/08/2023 1:45 PM EDT [place] [address] Kelsea Shafer MD [facility] [place] [address] 11/08/2023 3:00 PM EDT Routine Obstetrics [place] [address] Ab, Lexii Khan CNM [facility] [place] [address] 05/23/2024 Hospital [place] [address] Maite Malloy MD [facility] OBSTETRICS AND [place] [address] documented as of this encounter Visit Diagnoses Diagnosis Anxiety Anxiety state, unspecified documented in this encounter Care Teams Relationship Executive Relationship Specialty Start Date End Date Richard Rasheed MD [address] [place] [address] PCP - General Family Medicine 07/05/23 documented as of this encounter
--- OUTSIDE RECORDS SUMMARY | 2023-10-31 03:20 | XMS_ITS | Encounter Summary ---
Author Organization [facility] Address [facility] [place] [address] Care Team Providers Care Jewelry Manager Name Role Phone OnofreMarilynValenciaadan Barton APRN Primary Care Provider [phone] [phone] Reason for Visit * Reason Onset Date Comments Medication Refill 04/27/2019 Encounter Details Date Type Department Care Team (Late st Contact Info) Description 04/27/2019 Refill Psychiatry [place] [address] Argelia Mccray APRN [facility] [place] [address] Anxiety Social History Tobacco Use Types Packs/Day [...] 11/08/2023 1:45 PM EDT [place]oint[place] [address] Kelsea Shafer MD [facility] OBSTETRICS AND GYNECOLOGY [place], [place] [address] 11/08/2023 3:00 PM EDT Routine Obstetrics [place] [address] Ab, Lexii Khan [place] [facility] [place] [address] 05/23/2024 Hospital [place] [address] Maite Malloy MD [facility] DR OBSTETRICS AND GYNECOLOGY [place], [place] [address] documented as of this encounter Visit Diagnoses Diagnosis Anxiety Anxiety state, unspecified documented in this encounter Care Teams Jewelry Manager Relationship Specialty Start Date End Date Valencia Adhikari APRN [address] [place] [address] PCP - General 04/21/14 07/04/23 documented as of this encounter
--- OUTSIDE RECORDS SUMMARY | 2023-10-31 03:20 | XMS_ITS | Encounter Summary ---
Author Organization [facility] Address [facility] [place] [address] Care Team Providers Care Media Center Specialist Name Role Phone OnofreValencia pitts Oralia SLADE Primary Care Provider +1 [phone] Encounter Details Date Type Department Care Team (Late st Contact Info) Description 02/22/2018 Orders Only Psychiatry [place] [address] Argelia Mccray APRN [facility] [place] [address] Depression, unspecified depression type; Anxiety Social History [...] 11/08/2023 1:45 PM EDT [place] [address] Kelsea Shafer MD [facility] OBSTETRICS AND GYNECOLOGY [place], [place] [address] 11/08/2023 3:00 PM EDT Routine Obstetrics [place] [address] Ab, Lexii Khan CNM [facility] [place] [address] 05/23/2024 Hospital [place] [address] Maite Malloy MD [facility] OBSTETRICS [place] [address] documented as of this encounter Visit Diagnoses Diagnosis Depression, unspecified depression type Anxiety Anxiety state, unspecified documented in this encounter Care Teams Media Center Specialist Relationship Specialty Start Date End Date Valencia Adhikari APRN [address] [place] [address] PCP - General 04/21/14 07/04/23 documented as of this encounter
--- OUTSIDE RECORDS SUMMARY | 2023-10-31 03:20 | XMS_ITS | Encounter Summary ---
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 Language: fluent in [place] ?? Mood: Anxious ?? Affect: mood-congruent and [...] medications for a long period. Provided a [facility] Benzodiazapine contract for the patient and this consumer loan underwriter to sign. To reduce polypharmacy we will [...] disorder who continues to be seen at [facility] for medication management. Andree continues [...] abuse) or ifrecords are subpoenaed by a department store manager. We also discussed that notes can be read by other clinicians andstaff involved in the patient's care. Argelia Mccray APRN 02/21/2018 documented in this encounter Plan of Treatment Upcoming Encounters Date Type Department Care Team (Late st Contact Info) Description 11/08/2023 1:45 PM EDT Appointment [place] [address] Kelsea Shafer MD [facility] OBSTETRICS [place] [address] 11/08/2023 3:00 PM EDT Routine Obstetrics [place] [address] Lexii Berger CNM [facility] [place] [address] 05/23/2024 Hospital [place] [address] Maite Malloy MD [facility] OBSTETRICS [place] [address] documented as of this encounter Visit Diagnoses Diagnosis Depression, unspecified depression type Anxiety Anxiety state, unspecified documented in this encounter Care Teams Project Planner Relationship Specialty Start Date End Date Valencia Adhikari APRN [address] [place] [address] PCP - General 04/21/14 07/04/23 documented as of this encounter
--- OUTSIDE RECORDS SUMMARY | 2023-10-31 03:20 | XMS_ITS | Encounter Summary ---
[place] [address] Care Team Providers Care Category Development Manager Name Role Phone Onofre Valencia Barton APRN Primary Care Provider [phone] [phone] Encounter Details Date Type Department Care Team (Late st Contact Info) Description 11/16/2017 Telephone [place] [address] Lianne Rivera RN Social History [...] 11/08/2023 1:45 PM EDT [place] [address] Kelsea Shafer MD [facility] OBSTETRICS [place] [address] 11/08/2023 3:00 PM EDT Routine Obstetrics [place] [address] Ab, Lexii C, CNM [facility] [place], [place] [address] 05/23/2024 Hospital [place] [address] Maite Malloy MD [facility] OBSTETRICS [place] [address] documented as of this encounter Visit Diagnoses Not on filedocumented in this encounter Care Teams Category Development Manager Relationship Specialty Start Date End Date Valencia Adhikari APRN [address] [place] [address] PCP - General 04/21/14 07/04/23 documented as of this encounter
--- OUTSIDE RECORDS SUMMARY | 2023-10-31 03:20 | XMS_ITS | Encounter Summary ---
Author Organization [facility] [place] [address] Care Team Providers Care Web User Experience Strategist Name Role Phone Valencia Adhikari APRN Primary Care Provider +1 [phone] Encounter Details Date Type Department Care Team (Late st Contact Info) Description 10/04/2018 Telephone Psychiatry and Behavior[place] [address] Argelia Mccray APRN [facility] [place] [address] Social History Tobacco Use Types Packs/Day Years [...] 11/08/2023 1:45 PM EDT Appointment Ultrasound at [address] Kelesa Shafer MD [facility] [place] [address] 11/08/2023 3:00 PM EDT Routine Obstetrics and Gynecology at [place] [phone] Ab, Lexii C, CNM [facility] [place] [address] 05/23/2024 Hospital Encounter Birthing [place] [phone] Maite Malloy MD [facility] [place] [address] documented as of this encounter Visit Diagnoses Not on filedocumented in this encounter Care Teams Web User Experience Strategist Relationship Specialty Start Date End Date Valencia Adhikari APRN [address] [place] [address] PCP - General 04/21/14 07/04/23 documented as of this encounter
--- OUTSIDE RECORDS SUMMARY | 2023-10-31 03:20 | XMS_ITS | Encounter Summary ---
Author Organization [facility] Address [facility] [place] [address] Care Team Providers Care Dog Groomer Name Role Phone OnofreMarilynValenciaadan Barton APRN Primary Care Provider [phone] [phone] Reason for Visit * Reason Onset Date Comments Medication Refill 12/24/2018 Encounter Details Date Type Department Care Team (Late st Contact Info) Description 12/24/2018 Refill Psychiatry [place] [address] Argelia Mccray APRN [facility] [place] [address] Depression, unspecified depression type; Anxiety Social History [...] 11/08/2023 1:45 PM EDT [place] [address] Kelsea Shafer MD [facility] OBSTETRICS AND GYNECOLOGY [place], [place] [address] 11/08/2023 3:00 PM EDT Routine Obstetrics [place] [address] [facility] [place] [address] 05/23/2024 [place] [address] Maite Malloy MD [facility] OBSTETRICS [place] [address] documented as of this encounter Visit Diagnoses Diagnosis Depression, unspecified depression type Anxiety Anxiety state, unspecified documented in this encounter Care Teams Dog Groomer Relationship Specialty Start Date End Date Valencia Adhikari APRN [address] [place] [address] PCP - General 04/21/14 07/04/23 documented as of this encounter
--- OUTSIDE RECORDS SUMMARY | 2023-10-31 03:20 | XMS_ITS | Encounter Summary ---
[place] [address] Care Team Providers Care Children'S Minister Name Role Phone Valencia Adhikari APRN Primary Care Provider +1 -[phone] Encounter Details Date Type Department Care Team (Late st Contact Info) Description 02/05/2018 Telephone [place] [address] Negar Wilkes Social History Tobacco [...] come in. 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 documented in this encounter Plan of Treatment Upcoming Encounters Date Type Department Care Team (Late st Contact Info) Description 11/08/2023 1:45 PM EDT Appointment [place] [address] Kelsea Shafer MD [facility] OBSTETRICS [place] [address] 11/08/2023 3:00 PM EDT Routine Obstetrics [place] [address] Ab, Lexii Khan, CNM [facility] [place] [address] 05/23/2024 Hospital [place] [address] Maite Malloy MD [facility] OBSTETRICS [place] [address] documented as of this encounter Visit Diagnoses Not on filedocumented in this encounter Care Teams Children'S Minister Relationship Specialty Start Date End Date Valencia Adhikari APRN [address] [place] [address] PCP - General 04/21/14 07/04/23 documented as of this encounter
--- OUTSIDE RECORDS SUMMARY | 2023-10-31 03:20 | XMS_ITS | Encounter Summary ---
Author Organization [facility] [place] [address] Care Team Providers Care Winch Driver Name Role Phone Valencia Adhikari APRN Primary Care Provider [phone] [phone] Encounter Details Date Type Department Care Team (Late st Contact Info) Description 12/13/2017 8:30 AM EDT Office Visit Psychiatry [place] [address] Argelia Mccray TRAFFIC I MANAGER [facility] [place] [address] Depression, unspecified depression type; Anxiety; Bipolar affective [...] and normal rhythm ?? Language: fluent in estonian ?? Mood: Anxious ?? Affect: mood-congruent and [...] disorder who continues to be seen at [facility] for medication management. Andree continues to [...] abuse) or ifrecords are subpoenaed by a screen printing machine operator helper. We also discussed that notes can be read by other clinicians andstaff involved in the patient's care. Argelia Mccray APRN 12/13/2017 documented in this encounter Plan of Treatment Upcoming Encounters Date Type Department Care Team (Late st Contact Info) Description 11/08/2023 1:45 PM EDT Appoint[place] [address] Kelsea Shafer MD [facility] OBSTETRICS [place] [address] 11/08/2023 3:00 PM EDT Routine Obstetrics [place] [address] Ab, Lexii C, CNM [facility] [place] [address] 05/23/2024 [place] [address] Maite Malloy MD [facility] OBSTETRICS [place] [address] documented as of this encounter Visit Diagnoses Diagnosis Depression, unspecified depression type Anxiety Anxiety state, unspecified Bipolar affective disorder, remission status unspecified documented in this encounter Care Teams Winch Driver Relationship Specialty Start Date End Date Valencia Adhikari APRN [address] [place] [address] PCP - General 04/21/14 07/04/23 documented as of this encounter
--- OUTSIDE RECORDS SUMMARY | 2023-10-31 03:20 | XMS_ITS | Encounter Summary ---
Author Organization [facility] Address [facility] [place] [address] Care Team Providers Care Aesthetician Name Role Phone Valencia Adhikari APRN Primary Care Provider [phone] [phone] Encounter Details Date Type Department Care Team (Late st Contact Info) Description 05/14/2020 Telephone Psychiatry [place] [address] Crispin Fuller MD [facility] [place] [address] Social History Tobacco Use Types Packs/Day Years [...] continue with the process to go to [facility] for therapy. She requested options to consider [...] 11/08/2023 1:45 PM EDT Appointment Ultrasound at [place] [phone] Kelsea Shafer MD [facility] OBSTETRICS [place] [address] 11/08/2023 3:00 PM EDT Routine Obstetrics [place] [address] Ab, Lexii Khan CNM [facility] [place] [address] 05/23/2024 Hospital [place] [address] Maite Malloy MD [facility] OBSTETRICS [place] [address] documented as of this encounter Visit Diagnoses Not on filedocumented in this encounter Care Teams Aesthetician Relationship Specialty Start Date End Date Valencia Adhikari, CLINICAL THERAPIST [address] [place] [address] PCP - General 04/21/14 07/04/23 documented as of this encounter
--- OUTSIDE RECORDS SUMMARY | 2023-10-31 03:20 | XMS_ITS | Encounter Summary ---
Author Organization [facility] Address [facility] [place] [address] Care Team Providers Care Derrick Worker Name Role Phone Valencia Adhikari APRN Primary Care Provider [phone] [phone] Reason for Visit * Consultation (Routine) - Closed Specialty Diagnoses / Procedures Referred By Lamont riggins Referred To Contact Gastroenterology Diagnoses IRREGULAR BOWEL HABITS Valencia Adhikari APRN [address] [place] [address] [facility] [address]astro [address] [place] [address] Referral ID Status Reason Start Date Expiration Date V isits Requested Visits Authorized [id number] Closed Consult, Test & Treat [facility] 09/11/2017 09/11/2018 1 1 Encounter Details Date Type Department Care Team (Late st Contact Info) Description 10/16/2017 10:00 AM EDT Office [place] [address] Elinor Fisher PA [facility] [place] [address] Abdominal bloating; Diarrhea, unspecified type; IgA deficiency [...] EGD and colonoscopy done (she thinks in [place]) around age 17 (I do not have [...] MONITORING, SETUP performed by JUAN ESPARZA at [facility] MAIN OR ??? PRO THYROIDECTOMY, NYDIA, [facility] NECK SURG 03/22/2011 THYROIDECTOMY, FOR MALIGNANCY, LIMITED NECK DISSECTION performed by JUAN ESPARZA at [facility] MAIN OR ??? TONSILLECTOMY 2010 ??? [...] Fisher PA-C Section of Gastroenterology [place] [address] documented in this encounter Plan of Treatment Upcoming Encounters Date Type Department Care Team (Late st Contact Info) Description 11/08/2023 1:45 PM EDT [place] [address] Kelsea Shafer MD [facility] [place] [address] 11/08/2023 3:00 PM EDT Routine Obstetrics and Gynecology at [place] [address] Ab, Lexii Khan, CNM [facility] [place] [address] 05/23/2024 Hospital Encounter Birthing [place] [phone] Maite Malloy MD [facility] [place] [address] documented as of this encounter Visit Diagnoses Diagnosis Abdominal bloating Flatulence, eructation, and gas pain Diarrhea, unspecified type IgA deficiency Selective IgA immunodeficiency documented in this encounter Care Teams Derrick Worker Relationship Specialty Start Date End Date Valencia Adhikari APRN [address] [place] [address] PCP - General 04/21/14 07/04/23 documented as of this encounter
--- OUTSIDE RECORDS SUMMARY | 2023-10-31 03:20 | XMS_ITS | Encounter Summary ---
Author Organization [facility] Address [facility] [place] [address] Care Team Providers Care Management Developer Name Role Phone OnofreMarilynValenciaadan Barton APRN Primary Care Provider [phone] [phone] Reason for Visit * Reason Onset Date Comments Medication Refill 03/16/2020 Encounter Details Date Type Department Care Team (Late st Contact Info) Description 03/16/2020 Refill Psychiatry [place] [address] Osmar South RN Anxiety; Depression, unspecified depression [...] 11/08/2023 1:45 PM EDT [place] [address] Kelsea Shafer MD [facility] OBSTETRICS [place] [address] 11/08/2023 3:00 PM EDT Routine Obstetrics [place] [address] Ab, Lexii Khan CNM [facility] [place] [address] 05/23/2024 Hospital [place] [address] Maite Malloy MD [facility] [place] [address] documented as of this encounter Visit Diagnoses Diagnosis Anxiety Anxiety state, unspecified Depression, unspecified depression type documented in this encounter Care Teams Management Developer Relationship Specialty Start Date End Date Valencia Adhikari APRN [address] [place] [address] PCP - General 04/21/14 07/04/23 documented as of this encounter
--- OUTSIDE RECORDS SUMMARY | 2023-10-31 03:20 | XMS_ITS | Encounter Summary ---
Author Organization [facility] [place] [address] Care Team Providers Care Mortician Investigator Name Role Phone Valencia Adhikari APRN Primary Care Provider [phone] [phone] Encounter Details Date Type Department Care Team (Late st Contact Info) Description 11/14/2017 Telephone Psychiatry [place] [address] Argelia Mccray APRN [facility] [place] [address] Social History Tobacco Use Types Packs/Day Years [...] 11/08/2023 1:45 PM EDT Appointment Ultrasound at [place] [phone] Kelsea Shafer MD [facility] OBSTETRICS [place] [address] 11/08/2023 3:00 PM EDT Routine Obstetrics [place] [address] Ab, [facility] [place] [address] 05/23/2024 Hospital Encounter Birthing [place] [phone] Maite Malloy MD [facility] OBSTETRICS [place] [address] documented as of this encounter Visit Diagnoses Not on filedocumented in this encounter Care Teams Mortician Investigator Relationship Specialty Start Date End Date Valencia Adhikari APRN [address] [place] [address] PCP - General 04/21/14 07/04/23 documented as of this encounter
--- OUTSIDE RECORDS SUMMARY | 2023-10-31 03:20 | XMS_ITS | Encounter Summary ---
Author Organization [facility] Address [facility] [place] [address] Care Team Providers Care Systems Programmer Analyst Name Role Phone OonfreMarilynValenciaadan Barton APRN Primary Care Provider +1 -[phone] Reason for Visit * Reason Onset Date Comments Medication Refill 03/19/2020 Encounter Details Date Type Department Care Team (Late st Contact Info) Description 03/19/2020 Refill Psychiatry and Behavioral Health at [place] [phone] Crispin Fuller MD [facility] [address] Depression, unspecified depression type; Anxiety Social History [...] 11/08/2023 1:45 PM EDT [place] [address] Kelsea Shafer MD [facility] OBSTETRICS [place] [address] 11/08/2023 3:00 PM EDT Routine Obstetrics [place] [address] Ab, Lexii Khan, CNM [facility] [place] [address] 05/23/2024 Hospital [place] [address]1000 Maite Malloy MD [facility] OBSTETRICS [place] [address] documented as of this encounter Visit Diagnoses Diagnosis Depression, unspecified depression type Anxiety Anxiety state, unspecified documented in this encounter Care Teams Systems Programmer Analyst Relationship Specialty Start Date End Date Valencia Adhikari APRN [address] [place] [address] PCP - General 04/21/14 07/04/23 documented as of this encounter
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
--- OUTSIDE RECORDS SUMMARY | 2023-10-31 03:20 | XMS_ITS | Encounter Summary ---
Author Organization [facility] Address [facility] [place] [address] Care Team Providers Care Storeroom Supervisor Name Role Phone OnofreMarilynValenciaadan Barton APRN Primary Care Provider [phone] [phone] Reason for Visit * Reason Onset Date Comments Medication Refill 03/22/2020 Encounter Details Date Type Department Care Team (Late st Contact Info) Description 03/22/2020 Refill Psychiatry [place] [address] Osmar South RN Depression, unspecified [...] 11/08/2023 1:45 PM EDT [place] [address] Kelsea Shafer MD [facility] OBSTET[place] [address] 11/08/2023 3:00 PM EDT Routine Obstetrics [place] [address] Ab, Lexii Khan CNM [facility] [place] [address] 05/23/2024 Hospital [place] [address]1000 Maite Malloy MD [facility] [place] [address] documented as of this encounter Visit Diagnoses Diagnosis Depression, unspecified depression type Anxiety Anxiety state, unspecified documented in this encounter Care Teams Storeroom Supervisor Relationship Specialty Start Date End Date Valencia Adhikari APRN [address] [place] [address] PCP - General 04/21/14 07/04/23 documented as of this encounter
--- OUTSIDE RECORDS SUMMARY | 2023-10-31 03:20 | XMS_ITS | Encounter Summary ---
Author Organization [facility] [place] [address] Care Team Providers Care Screw Down Name Role Phone Valencia Adhikari APRN Primary Care Provider [phone] [phone] Reason for Visit * Reason Comments Bipolar Disorder Encounter Details Date Type Department Care Team (Late st Contact Info) Description 11/08/2017 8:00 AM EDT Office Visit Psychiatry [place] [phone] Argelia Mccray MILLING MACHINE OPERATOR GEAR [facility] [place] [address] Depression, unspecified depression type; Anxiety Social History [...] in this encounter Progress Notes * MichaeldelilahArgelia, MILLING MACHINE OPERATOR GEAR - 11/08/2017 8:00 AM EDT ESTABLISHED ADULT [...] on Sunday and has been hospitalized at [facility]. Andree states she and her father do [...] divehi ?? Mood: Anxious ?? Affect: mood-congruent ?? [...] Disorder vs. Bipolar Disorder unspecified) CURRENT ASSESSMENT: Andree had been stable and doing well up [...] that I am available via [facility], but that I do not always check [...] 11/08/2023 1:45 PM EDT Appointment Ultrasound at [place] [phone] Kelsea Shafer MD [facility] OBSTETRICS [place] [address] 11/08/2023 3:00 PM EDT Routine Obstetrics and Gynecology at [place] [phone] Ab, Lexii [facility], [facility] [place] [address] 05/23/2024 Hospital Encounter Birthing [place] [phone] Maite Malloy MD [facility] OBSTETRICS [place] [address] documented as of this encounter Visit Diagnoses Diagnosis Depression, unspecified depression type Anxiety Anxiety state, unspecified documented in this encounter Care Teams Screw Down Relationship Specialty Start Date End Date Valencia Adhikari APRN [address] [place] [address] PCP - General 04/21/14 07/04/23 documented as of this encounter
--- OUTSIDE RECORDS SUMMARY | 2023-10-31 03:20 | XMS_ITS | Encounter Summary ---
[place] [address] Care Team Providers Care Apprentice Plant Attendant Name Role Phone Valencia Adhikari APRN Primary Care Provider [phone] [phone] Reason for Visit * Reason Onset Date Comments Prior Authorization 12/31/2018 Celecoxib 20 0 mg Prior Authorization 01/02/2019 Request for information from [facility] Encounter Details Date Type Department Care Team (Late st Contact Info) Description 12/31/2018 Telephone [place] [address] Geovanna Paredes RN Prior Authorization (Celecoxib 200 mg ); Prior Authorization (Request for information from [facility]) Social History Tobacco Use Types Packs/Day Years [...] EDT PA Request received by fax from [facility] Request for information - documentation to show previous - continuous use of Celebrex Documentation faxed to [facility] # [phone] Awaiting response. * Telephone Encounter - Geovnana Paredes RN - 12/31/2018 4:49 PM EDT Prior Auth Request received from [facility] [address] [place] [address] Celecoxib 200 mg cap - Take 1 capsule by mouth daily. Disp 30 Refill 1 Insurer: MARIAM ID: [id number] Provider: Alicia Oviedo APRN Diagnosis: Scapular Dyskinesis - G25.89 Left Shoulder Pain - M25.512 Patient has been effectively using this medication continuously since 11/16/2017. Previously tried: Voltaren Gel - 2017 - Not effective enough. Patient has Physical Therapy & Steroid Injections without relief. [employer] Forms completed, signed and faxed to Dept of [place] [facility] at . Awaiting Response. documented in this encounter Plan of Treatment Upcoming Encounters Date Type Department Care Team (Late st Contact Info) Description 11/08/2023 1:45 PM EDT Appointment [place] [phone] Kelsea Shafer MD [facility] DR [place] [address] 11/08/2023 3:00 PM EDT Routine Obstetrics [place] [address] Ab, Lexii Khan CNM [facility] [address] [place] [id number] 05/23/2024 Hospital [place] [address] Miate Malloy MD [facility] [place] [address] documented as of this encounter Visit Diagnoses Not on filedocumented in this encounter Care Teams Apprentice Plant Attendant Relationship Specialty Start Date End Date Valencia Adhikari APRN [address] [place] [address] PCP - General 04/21/14 07/04/23 documented as of this encounter
--- OUTSIDE RECORDS SUMMARY | 2023-10-31 03:20 | XMS_ITS | Encounter Summary ---
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 Language: fluent in kiswahili ?? Mood: Anxious ?? Affect: mood-congruent and [...] reviewed the resource Psychology Today and this automobile service writer will plan to send the client some options. MEDICAL DECISION MAKING WORKING DIAGNOSIS Anxiety disorder unspecified Depressive disorder/Mood disorder DDx: Bipolar disorder CURRENT ASSESSMENT: 27 year old with hypothyroidism, intractable chronic migraine, and mood disorder who continues to be seen at [facility] for medication management. Today, Andree's anxiety [...] previously discussed that I am available via [employer], but that I do not always check this daily, and should not be used in case of emergency. We have reviewed crisis numbers to call in case ofemergency. We have previously discussed limits to confidentiality, which include breaking confidentiality in the case of concern for imminent danger to self, someone else (including child and elder abuse) or ifrecords are subpoenaed by a immigration judge. We also discussed that notes can be read by other clinicians andstaff involved in the patient's care. Argelia Mccray APRN 03/21/2018 documented in this encounter Plan of Treatment Upcoming Encounters Date Type Department Care Team (Late st Contact Info) Description 11/08/2023 1:45 PM EDT Appointment Ultrasound at [place] [phone] Kelsea Shafer MD [facility] OBSTETRICS [place] [address] 11/08/2023 3:00 PM EDT Routine Obstetrics and Gynecology at [place] [phone] Lexii Berger, CNJose A [facility] [place] [address] 05/23/2024 Hospital Encounter Birthing [place] [phone] Maite Malloy MD [facility] OBSTETRICS [place] [address] documented as of this encounter Visit Diagnoses Diagnosis Anxiety Anxiety state, unspecified documented in this encounter Care Teams Unit Control Worker Relationship Specialty Start Date End Date Valencia Adhikari APRN [address] [place] [address] PCP - General 04/21/14 07/04/23 documented as of this encounter
--- OUTSIDE RECORDS SUMMARY | 2023-10-31 03:20 | XMS_ITS | Encounter Summary ---
Author Organization [facility] Address [facility] [place] [address] Care Team Providers Care Magazine Keeper Name Role Phone OnofreMarilynValenciaadan Barton APRN Primary Care Provider [phone] -[phone] Reason for Visit * Reason Onset Date Comments Medication Refill 08/02/2018 Encounter Details Date Type Department Care Team (Late st Contact Info) Description 08/02/2018 Refill Psychiatry [place] [address]1000 Osmar South RN Anxiety Social History Tobacco [...] 11/08/2023 1:45 PM EDT Appoint[place] [phone] Kelsea Shafer MD [facility] DR OBSTETRICS [place] [address] 11/08/2023 3:00 PM EDT Routine Obstetrics [place] [address] Ab, Lexii Khan, RAY [facility] [place] [address] 05/23/2024 [place] [address]1000 Maite Malloy MD [facility] OBSTET[place] [address] documented as of this encounter Visit Diagnoses Diagnosis Anxiety Anxiety state, unspecified documented in this encounter Care Teams Magazine Keeper Relationship Specialty Start Date End Date Valencia Adhikari APRN [address] [place] [address] PCP - General 04/21/14 07/04/23 documented as of this encounter
--- OUTSIDE RECORDS SUMMARY | 2023-10-31 03:20 | XMS_ITS | Encounter Summary ---
Author Organization [facility] Address [facility] [place] [address] Care Team Providers Care Batterboard Setter Name Role Phone OnofreMarilynValenciaadan Barton APRN Primary Care Provider +1 -[phone] Reason for Visit * Reason Onset Date Comments Medication Refill 10/26/2018 Encounter Details Date Type Department Care Team (Late st Contact Info) Description 10/26/2018 Refill Psychiatry [place] [address] Argelia Mccray APRN [facility] [place] [address] Depression, unspecified depression type; Anxiety Social History [...] 1:45 PM EDT Appointment [place] [address]-1000 Kelsea Shafer MD [facility] OBSTETRICS AND GYNECOLOGY [place], [place] [address] 11/08/2023 3:00 PM EDT Routine Obstetrics [place] [address] AbLexii CNM [facility] [place] [address] 05/23/2024 Hospital [place] [address] Maite Malloy MD [facility] OBSTETRICS [place] [address] documented as of this encounter Visit Diagnoses Diagnosis Depression, unspecified depression type Anxiety Anxiety state, unspecified documented in this encounter Care Teams Batterboard Setter Relationship Specialty Start Date End Date Valencia Adhikari APRN [address] [place] [address] PCP - General 04/21/14 07/04/23 documented as of this encounter
--- OUTSIDE RECORDS SUMMARY | 2023-10-31 03:20 | XMS_ITS | Encounter Summary ---
Author Organization [facility] [place] [address] Care Team Providers Care Single Needle Tufting Machine Operator Name Role Phone OnofreValencia pitts [place] Primary Care Provider +1 -[phone] Encounter Details Date Type Department Care Team (Late st Contact Info) Description 01/28/2018 Telephone [place] [address] Martínez Knight Social History Tobacco [...] 11/08/2023 1:45 PM EDT Appointment [place] [address] Kelsea Shafer MD [facility] OBSTETRICS [place] [address] 11/08/2023 3:00 PM EDT Routine Obstetrics [place] [address] Ab, Lexii C, CNM [facility] [place] [address] 05/23/2024 Hospital [place] [address]1000 Maite Malloy MD [facility] OBSTETRICS [place] [address] documented as of this encounter Visit Diagnoses Not on filedocumented in this encounter Care Teams Single Needle Tufting Machine Operator Relationship Specialty Start Date End Date Valencia Adhikari APRN [address] [place] [address] PCP - General 04/21/14 07/04/23 documented as of this encounter
--- OUTSIDE RECORDS SUMMARY | 2023-10-31 03:20 | XMS_ITS | Encounter Summary ---
Author Organization [facility] Address [facility] [place] [address] Care Team Providers Care Dispatcher Service Name Role Phone Onofre Valencia Barton APRN Primary Care Provider +1 -[phone] Reason for Visit * Reason Onset Date Comments Medication Refill 04/22/2020 Encounter Details Date Type Department Care Team (Late st Contact Info) Description 04/22/2020 Refill Psychiatry [place] [address] Crispin Fuller MD [facility] [place] [address] Depression, unspecified depression type; Anxiety Social History [...] 11/08/2023 1:45 PM EDT Appoint[place] [address] Kelsea Shafer MD [facility] OBST[place] [address] 11/08/2023 3:00 PM EDT Routine Obstetrics [place] [address] AbLexii CNM [facility] [place] [address] 05/23/2024 Hospital [place] [address]-1000 Maite Malloy MD [facility] OBSTETRICS [place] [address] documented as of this encounter Visit Diagnoses Diagnosis Depression, unspecified depression type Anxiety Anxiety state, unspecified documented in this encounter Care Teams Dispatcher Service Relationship Specialty Start Date End Date Valencia Adhikari APRN [address] [place] [address] PCP - General 04/21/14 07/04/23 documented as of this encounter
--- OUTSIDE RECORDS SUMMARY | 2023-10-31 03:20 | XMS_ITS | Encounter Summary ---
Author Organization [facility] [place] [address] Care Team Providers Care Brim Presser Name Role Phone OnofreMarilynValenciaadan Barton APRN Primary Care Provider +1 -[phone] Reason for Visit * Reason Onset Date Comments Medication Refill 10/26/2018 Encounter Details Date Type Department Care Team (Late st Contact Info) Description 10/26/2018 Ref[place] [address]1000 Alicia Oviedo APRN [facility] [place] [address] Left shoulder pain, unspecified chronicity Social History [...] 11/08/2023 1:45 PM EDT Appointment [place] [address]1000 Kelsea Shafer MD [facility] [place] [address] 11/08/2023 3:00 PM EDT Routine Obstetrics [place] [address]1000 Lexii Berger, JAYNEM [facility] [place] [address] 05/23/2024 Hospital [place] [address]1000 Maite Malloy MD [facility] OBSTETRICS AND [place]ECOLOGY [place], [place] [address]24[address] documented as of this encounter Visit Diagnoses Diagnosis Left shoulder pain, unspecified chronicity documented in this encounter Care Teams Brim Presser Relationship Specialty Start Date End Date Valencia Adhikari APRN [address] [place] [address] PCP - General 04/21/14 07/04/23 documented as of this encounter
--- OUTSIDE RECORDS SUMMARY | 2023-10-31 03:20 | XMS_ITS | Encounter Summary ---
Author [facility] Address [facility] [place] [address] Care Team Providers Care Communication Electronic Technician Name Role Phone Valencia Adhikari [place] Primary Care Provider +1 -[phone] Encounter Details Date Type Department Care Team (Late st Contact Info) Description 01/28/2018 11:59 PM EDT Anesthesia [place] [address] Harsha Pérez MD [facility] [place] [place] [address] Anesthesia Record Procedure Summary Procedure Name Responsible [...] 11/08/2023 1:45 PM EDT [place] [address] Kelsea Shafer MD [facility] OBSTETRICS [place] [address] 11/08/2023 3:00 PM EDT Routine Obstetrics and Gynecology at [place] [phone] Ab, Lexii C, CNM [facility] [place] [address] 05/23/2024 Hospital Encounter Birthing [place] [phone] Maite Malloy MD [facility] OBSTETR[place] [address] documented as of this encounter Visit Diagnoses Not on filedocumented in this encounter Care Teams Communication Electronic Technician Relationship Specialty Start Date End Date Valencia Adhikari APRN [address] [place] [address] PCP - General 04/21/14 07/04/23 documented as of this encounter
--- OUTSIDE RECORDS SUMMARY | 2023-10-31 03:20 | XMS_ITS | Encounter Summary ---
Author Organization [facility] [place] [address] Care Team Providers Care Acquisition Manager Name Role Phone Valencia Adhikari APRN Primary Care Provider +1 -[phone] Encounter Details Date Type Department Care Team (Late st Contact Info) Description 04/19/2020 Telephone Psychiatry [place] [phone] Lisa Dickens, PhD Social History Tobacco Use [...] me) Plan: Patient can contact schedulers at [phone] to reschedule if she is still interested in anevaluation or psychotherapy through the Psychiatry Department. documented in this encounter Plan of Treatment Upcoming Encounters Date Type Department Care Team (Late st Contact Info) Description 11/08/2023 1:45 PM EDT Appointment Ultrasound at [place] [phone] Kelsea Shafer MD [facility] OBSTETRICS [place] [address] 11/08/2023 3:00 PM EDT Routine Obstetrics [place] [address] Ab, [facility] [place] [address] 05/23/2024 Hospital Encounter Birthing [place] [phone] Maite Malloy MD [facility] OBSTETRICS [place] [address] documented as of this encounter Visit Diagnoses Diagnosis Unspecified mood (affective) disorder documented in this encounter Care Teams Acquisition Manager Relationship Specialty Start Date End Date Valencia Adhikari APRN [address] [place] [address] PCP - General 04/21/14 07/04/23 documented as of this encounter
--- OUTSIDE RECORDS SUMMARY | 2023-10-31 03:20 | XMS_ITS | Encounter Summary ---
Author Organization [facility] [place] [address] Care Team Providers Care Scheduling Assistant Name Role Phone Valencia Adhikari APRN Primary Care Provider +1 -[phone] Encounter Details Date Type Department Care Team (Late st Contact Info) Description 11/21/2017 [place] [phone] Ambika Grande MSW Social History Tobacco Use [...] EDT CCM responded to call from pt's core sucker with question about access to Pain Clinic treatments. CCM reviewed pt chart and noted that pt has not been seen by Pain Clinic and advised caller to have the IW call to make an appointment. documented in this encounter Plan of Treatment Upcoming Encounters Date Type Department Care Team (Late st Contact Info) Description 11/08/2023 1:45 PM EDT Appointment Ultrasound at [address] Kelsea Shafer MD [facility] OBSTETRICS [place] [address] 11/08/2023 3:00 PM EDT Routine Obstetrics [place] [address] Ab, Lexii Khan CNM [facility] [place] [address] 05/23/2024 [place] [address] Maite Malloy MD [facility] [place] [address] documented as of this encounter Visit Diagnoses Not on filedocumented in this encounter Care Teams Scheduling Assistant Relationship Specialty Start Date End Date Valencia Adhikari APRN [address] [place] [address] PCP - General 04/21/14 07/04/23 documented as of this encounter
--- OUTSIDE RECORDS SUMMARY | 2023-10-31 03:20 | XMS_ITS | Encounter Summary ---
Author Organization [facility] Address [facility] [place] [address] Care Team Providers Care Food Counselor Name Role Phone Valencia Adhikari APRN Primary Care Provider +1 -[phone] Encounter Details Date Type Department Care Team (Late st Contact Info) Description 05/11/2020 Telephone Psychiatry [place] [phone] Crispin Fuller MD [facility] [place] [address] Social History Tobacco Use Types Packs/Day Years [...] 11/08/2023 1:45 PM EDT Appointment Ultrasound at [place] [phone] Kelsea Shafer MD [facility] OBSTETRICS [place] [address] 11/08/2023 3:00 PM EDT Routine Obstetrics [place] [address] Ab, Lexii C, [facility] [place] [address] 05/23/2024 Hospital Encounter Birthing [place] [phone] Maite Malloy MD [facility] [place] [address] documented as of this encounter Visit Diagnoses Not on filedocumented in this encounter Care Teams Food Counselor Relationship Specialty Start Date End Date Valencia Adhikari APRN [address] [place] [address] PCP - General 04/21/14 07/04/23 documented as of this encounter
--- OUTSIDE RECORDS SUMMARY | 2023-10-31 03:20 | XMS_ITS | Encounter Summary ---
Author Organization [facility] Address [facility] [place] [address] Care Team Providers Care Manufacturing Technology Analyst Name Role Phone Valencia Adhikari APRN Primary Care Provider +1 -[phone] Encounter Details Date Type Department Care Team (Late st Contact Info) Description 05/06/2020 Telephone Psychiatry [place] [address] Flora Lyon [facility] [place] [address] Social History Tobacco Use Types Packs/Day Years [...] 11/08/2023 1:45 PM EDT [place]ointment [place] [address] Kelsea Shafer MD [facility] OBSTETRICS [place] [address] 11/08/2023 3:00 PM EDT Routine Obstetrics [place] [address] Ab, Lexii Khan, [facility] [address] [place] [address] 05/23/2024 Hospital Encounter Birthing [place] [phone] Maite Malloy MD [facility] OBSTETRICS [place] [address] documented as of this encounter Visit Diagnoses Not on filedocumented in this encounter Care Teams Manufacturing Technology Analyst Relationship Specialty Start Date End Date Valencia Adhikari APRN [address] [place] [address] PCP - General 04/21/14 07/04/23 documented as of this encounter
--- OUTSIDE RECORDS SUMMARY | 2023-10-31 03:20 | XMS_ITS | Encounter Summary ---
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 Language: fluent in botswanan ?? Mood: anxious ?? Affect: mood-congruent ?? [...] - 10.8 mcg/dL Final Comment: Reference Range: [place] Cord Blood: 6.9-14.4 mcg/dL Females: 7.2-14.2 mcg/dL Pediatric ranges: Interpret with caution-ranges have not been verified Free T4 Date Value Ref Range Status 07/04/2018 1.15 0.93 - 1.70 ng/dL Final Lipids and HgbA1C: No results found for: CHLPL, HDL, CHOLHDL, LDLCHOL, LDLDIRECT, TRIG No results found for: HA1C Vit Lvls: No results found for: CDAVYTIB36, SFOLATE Tox: No results found for: ETHANOL, ACTMNPHEN, SALICYLATE, LEAD No results found for: UDAUSCREEN Rx Lvls: Lamotrigine Lvl Date Value Ref Range Status 07/04/2018 3.2 2.5 - 15.0 mcg/mL Final Comment: ADDITIONAL INFORMATION This test was developed and its performance characteristics determined by [facility] in a manner consistent with CLIA requirements. This test has not been cleared or approved by the U.S. Food and Drug Administration. Test Performed by: [facility] [address] [place] [address] Formulation and Assessment: Overall Formulation: Sorcha E [...] and how it is not meant for oysterman use. Brooklynn voices her understanding and states that she does not want to be on this medication oysterman. Since being on the medication she has [...] 11/08/2023 1:45 PM EDT Appointment Ultrasound at [place] [phone] Kelsea Shafer MD [facility] [address] OBSTET[place] [address] 11/08/2023 3:00 PM EDT Routine Obstetrics and Gynecology at [place] [phone] Ab, Lexii Khan, [facility] [place] [address] 05/23/2024 Hospital Encounter Birthing [place] [phone] Maite Malloy MD [facility] OBSTET[place] [address] documented as of this encounter Visit Diagnoses Diagnosis Anxiety Anxiety state, unspecified Depression, unspecified depression type documented in this encounter Care Teams Heel Gouger Relationship Specialty Start Date End Date Valencia Adhikari APRN [address] [place] [address] PCP - General 04/21/14 07/04/23 documented as of this encounter
--- OUTSIDE RECORDS SUMMARY | 2023-10-31 03:20 | XMS_ITS | Encounter Summary ---
Author Organization [facility] Address [facility] [place] [address] Care Team Providers Care Treating Inspector Name Role Phone OnofreValencia pitts Oralia SLADE Primary Care Provider +1 -[phone] Encounter Details Date Type Department Care Team (Late st Contact Info) Description 10/03/2018 Orders Only Psychiatry [place] [phone] Argelia Mccray APRN [facility] [place] [address] Anxiety Social History Tobacco Use Types Packs/Day [...] 11/08/2023 1:45 PM EDT Appointment [place] [address] Kelsea Shafer MD [facility] OBSTETRICS [place] [address] 11/08/2023 3:00 PM EDT Routine Obstetrics [place] [address] Ab, Lexii Khan CNM [facility] [address] 05/23/2024 Hospital [place] [phone] Maite Malloy MD [facility] OBSTETRICS [place] [address] documented as of this encounter Visit Diagnoses Diagnosis Anxiety Anxiety state, unspecified documented in this encounter Care Teams Treating Inspector Relationship Specialty Start Date End Date Valencia Adhikari APRN [address] [place] [address] PCP - General 04/21/14 07/04/23 documented as of this encounter
--- OUTSIDE RECORDS SUMMARY | 2023-10-31 03:21 | XMS_ITS | Encounter Summary ---
[place] [address] Care Team Providers Care Aws Consultant Name Role Phone Valencia Adhikari APRN Primary Care Provider +1 -[phone] Reason for Visit * Reason Onset Date Comments Pre Procedure Call 07/03/2017 Encounter Details Date Type Department Care Team (Late st Contact Info) Description 07/03/2017 Telephone [place] [address] Valentina Rincon LNA Pre Procedure Call Social [...] instructed to arrive at 8:00AM on 07/05/2017. 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 Patient confirmed understanding that if they do not follow the above their instructions, their procedure is likely to be cancelled. KIERAN Earl documented in this encounter Plan of Treatment Upcoming Encounters Date Type Department Care Team (Late st Contact Info) Description 11/08/2023 1:45 PM EDT Appointment [place] [address] Kelsea Shafer MD [facility] OBSTETRICS [place] [address] 11/08/2023 3:00 PM EDT Routine Obstetrics [place] [address] Ab, Lexii Khan CNM [facility] [place] [address] 05/23/2024 Hospital [place] [address] Maite Malloy MD [facility] DR OBSTETRICS AND GYNECOLOGY [place], [place] [address] documented as of this encounter Visit Diagnoses Not on filedocumented in this encounter Care Teams Aws Consultant Relationship Specialty Start Date End Date Valencia Adhikari APRN [address] [place] [address] PCP - General 04/21/14 07/04/23 documented as of this encounter
--- OUTSIDE RECORDS SUMMARY | 2023-10-31 03:21 | XMS_ITS | Encounter Summary ---
Author [facility] [place] [address] Care Team Providers Care Mascara Molder Name Role Phone Valencia Adhikari APRN Primary Care Provider +1 -[phone] Reason for Visit * Reason Onset Date Comments Medication Refill 06/27/2017 Encounter Details Date Type Department Care Team (Late st Contact Info) Description 06/27/2017 [place] [phone] Yolanda Salomon RN Left shoulder pain, unspecified [...] left shoulder injection under fluoroscopy in the [facility] on with Dr. Altamirano. How is this medication being used currently: She is using 1/2-1 patch daily. She uses the gel from 1-4 times daily. Pain level: The meds have reduced her pain by 30-40%. Other pain medications used and how: n/a. New Prescription written for: Lidocaine #30 patch daily on 12hours and off 12 hours. Diclofenac [id number] g apply 2 g topically 4x/day. Prescription sent electronically to [facility] by in [place], [place]. The patient knows how to contact orthopaedics if any further questions or concerns occur. documented in this encounter Plan of Treatment Upcoming Encounters Date Type Department Care Team (Late st Contact Info) Description 11/08/2023 1:45 PM EDT Appointment Ultrasound at [place] [phone] Kelsea Shafer MD [facility] OBSTETRICS [place] [address] 11/08/2023 3:00 PM EDT Routine Obstetrics [place] [address] Ba, Lexii Khan CNM [facility] [place] [address] 05/23/2024 Hospital Encounter Birthing [place] [phone] Maite Malloy MD [facility] OBSTETRICS [place] [address] documented as of this encounter Visit Diagnoses Diagnosis Left shoulder pain, unspecified chronicity documented in this encounter Care Teams Mascara Molder Relationship Specialty Start Date End Date Valencia Adhikari APRN [address] [place] [address] PCP - General 04/21/14 07/04/23 documented as of this encounter
--- OUTSIDE RECORDS SUMMARY | 2023-10-31 03:21 | XMS_ITS | Encounter Summary ---
Author Organization [facility] Address [facility] [place] [address] Care Team Providers Care Apprentice Pattern Maker Name Role Phone Valencia Adhikari APRN Primary Care Provider +1 -[phone] Encounter Details Date Type Department Care Team (Latest Contact Info) Description 03/20/2017 1:52 PM EST - 03/20/2017 11:59 PM [facility] Hospital Encounter XRay at [address] [place] [address] Kedar Santos MD [facility] [place] [address] Left shoulder pain, unspecified chronicity Discharge Disposition: [...] 11/08/2023 1:45 PM EDT Appointment Ultrasound at [place] [phone] Keslea Shafer MD [facility] [place] [address] 11/08/2023 3:00 PM EDT Routine Obstetrics [place] [address] Ab, Sally Khan CNM [facility] [place] [address] 05/23/2024 [place] [address] Maite Malloy MD [facility] [place] [address] documented as of this encounter Procedures Procedure [...] pre- procedural time-out was performed as per [facility] protocol. The patient was placed supine on [...] glenohumeral joint space. 2. ??PAIN SCORE: ??Before: 9-10/10 ??After: 9-10/10 3. Fluoroscopy time: 0.10 minutes 4. Medications: ??Lidocaine 1% - <5 ml, for subcutaneous anesthesia ??Ropivacaine HCL ??0.5% - 3 ml ??Triamciolone Acetonide ??- 40 mg COMPLICATIONS: ??None immediate. POST-PROCEDURE CARE: Information regarding monitor of infection, post- procedural pain and management of steroid flare were reviewed with patient. Procedure Note Sally Joya APRN - 03/20/2017 HISTORY: Left shoulder pain, inject for diagnostic/therapeutic purposes. LEFT SHOULDER JOINT INJECTION UNDER FLUOROSCOPY TECHNIQUE: After an extensive conversation with the patient regardingrisks and benefits, oral and written consent were obtained. A pre- proceduraltime-out was performed as per [facility] protocol. The patient was placed supine on [...] space. 2. PAIN SCORE: Before: 9-10/10 After: 9-10 3. Fluoroscopy time: 0.10 minutes 4. Medications: [...] pre- procedural time-out was performed as per [facility] protocol. The patient was placed supine on [...] pre- procedural time-out was performed as per [facility] protocol. The patient was placed supine on [...] I performed this procedure. Kedar Santos MD [facility] PROC ORDERABL ES documented in this encounter [...] (Left) documented in this encounter Care Teams Apprentice Pattern Maker Relationship Specialty Start Date End Date Valencia Adhikari APRN [address] [place] [address] PCP - General 04/21/14 07/04/23 documented as of this encounter
--- OUTSIDE RECORDS SUMMARY | 2023-10-31 03:21 | XMS_ITS | Encounter Summary ---
Author Organization [facility] Address [facility] [place] [address] Care Team Providers Care Marketing Development Manager Name Role Phone Valencia Adhikari APRN Primary Care Provider +1 -[phone] Reason for Visit * Reason Comments Vaginitis Follow-up Encounter Details Date Type Department Care Team (Late st Contact Info) Description 05/08/2016 1:00 PM EST Office Visit Obstetric[place] [phone] Valencia Bourne [facility] OBSTETRICS & GYNECOLOG[place] [address] Acute pelvic pain, female (Primary Dx) Social [...] 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, and doesn't know if she felt them [...] 11/08/2023 1:45 PM EDT Appointment Ultrasound at [place] [phone] Kelsea Shafer MD [facility] OBSTETRICS AND GYNECOLOG[place] [address] 11/08/2023 3:00 PM EDT Routine Obst[place] [address] Ab, Lexii Khan CNM [facility] [place] [address] 05/23/2024 Hospital [place] [address] Maite Malloy MD [facility] OBSTETRICS AND [place] [address] documented as of this encounter Procedures Procedure Name Priority Date/Time Associated Diagnosis Comments GC/CHLAMYDIA Routine 05/08/2016 5:19 PM EST Acute pelvic pain, female GC/CHLAM Routine 05/08/2016 5:19 PM EST Acute pelvic pain, female documented in this encounter Results * GC/Chlam (05/08/2016 5:19 PM EST) GC Gene Amp Negative Negative [facility] Comment: The only FDA approved specimen types for this assay are cervix, vagina, urethra and urine. GC Source Cervical [facility] Chlamydia Gene Amp Negative Negative [facility] Comment: The only FDA approved specimen types for this assay are cervix, vagina, urethra and urine. Chlamydia Source Cervical [facility] Cervical swab (specimen) 05/08/2016 5:19 PM EST 05/08/2016 5:19 PM EST Narrative Resulting Agency Comment Spec In Lab Richard Stallings MD MICROBIOLOGY - [facility] AL ORDERABLES Performing Organization Address City/State/[facility] Co de Phone Number [facility] [place] [phone] * US Transvaginal Non OB (05/08/2016 2:22 [...] 02:35 pm) PATIENT INFO: ID #: ? [id number] ?: ??[birth year] (25 yrs) Name: ? PREETHI Godoy ? Visit Date: 05/08/2016 02:20 pm ? LOUISE- ? FRANK PERFORMED BY: Performed By: ? Itzel Lezama RDMS Attending: ?nAca LIMA, Phylicia Guzman. Referred By: ?RICHARD STALLINGS MD Location: ? [place] SERVICE(S) PROVIDED: ??UTV - Transvaginal - [id number] ?[id number] ??U3D - ??3D rendering with interpretation - [id number] ? [id number] INDICATIONS: ??pelvic pain with IUD in place [...] 05/08/2016 02:35 pm) PATIENT INFO: ID #: [id number] : [birth year] (25 yrs) Name: PREETHI Godoy Visit Date: 05/08/2016 02:20 pm MARIO MARIE PERFORMED BY: Performed By: Itzel Lezama RDMS Attending: Phylicia March MD Referred By: RICHARD STALLINGS MD Location: [place] SERVICE(S) PROVIDED: UTV - Transvaginal - [id number] U3D - 3D rendering with interpretation - [id number] INDICATIONS: pelvic pain with IUD in place [...] organs documented in this encounter Care Teams Marketing Development Manager Relationship Specialty Start Date End Date Valencia Adhikari, [place] [address] [place] [address] PCP - General 04/21/14 07/04/23 documented as of this encounter
--- OUTSIDE RECORDS SUMMARY | 2023-10-31 03:21 | XMS_ITS | Encounter Summary ---
Author Organization [facility] Address [facility] [place] [address] Care Team Providers Care Racing Mechanic Name Role Phone Valencia Adhikari APRN Primary Care Provider +1 -[phone] Encounter Details Date Type Department Care Team (Latest Contact Info) Description 05/08/2016 1:58 PM EST - 05/08/2016 11:59 PM EST Hospital [place] [phone] Richard Stallings MD [facility] OBSTETRICS & [place] [address] Acute pelvic pain, female Discharge Disposition: Home [...] 11/08/2023 1:45 PM EDT Appointment Ultrasound at [place] [phone] Kelsea Shafer MD [facility] OBSTETRICS [place] [address] 11/08/2023 3:00 PM EDT Routine Obstetrics [place] [address] Lexii Berger CNM [facility] [place] [address] 05/23/2024 Hospital [place] [address] Maite Malloy MD [facility] OBSTETRICS [place] [address] documented as of this encounter Procedures Procedure [...] 02:35 pm) PATIENT INFO: ID #: ? [id number] ?: ??[birth year] (25 yrs) Name: ? SORURVASHI E ? Visit Date: 05/08/2016 02:20 pm ? LOUISE- ? FRANK PERFORMED BY: Performed By: ? Itzel Lezama RDMS Attending: ?Anca LIMA, Phylicia Guzman. Referred By: ?RICHARD STALLINGS MD Location: ? [place] SERVICE(S) PROVIDED: ??UTV - Transvaginal - [id number] ?[id number] ??U3D - ??3D rendering with interpretation - [id number] ? [id number] INDICATIONS: ??pelvic pain with IUD in place [...] 05/08/2016 02:35 pm) PATIENT INFO: ID #: [id number] : [birth year] (25 yrs) Name: PREETHI Godoy Visit Date: 05/08/2016 02:20 pm MARIO MARIE PERFORMED BY: Performed By: Itzel Lezama RDMS Attending: Phylicia March MD Referred By: RICHARD STALLINGS MD Location: [place] SERVICE(S) PROVIDED: UTV - Transvaginal - [id number] U3D - 3D rendering with interpretation - [id number] INDICATIONS: pelvic pain with IUD in place [...] organs documented in this encounter Care Teams Racing Mechanic Relationship Specialty Start Date End Date Valencia Adhikari APRN [address] [place] [address] PCP - General 04/21/14 07/04/23 documented as of this encounter
--- OUTSIDE RECORDS SUMMARY | 2023-10-31 03:21 | XMS_ITS | Encounter Summary ---
Author Organization [facility] Address [facility] [place] [address] Care Team Providers Care Media Consultant Name Role Phone Valencia Adhikari APRN Primary Care Provider +1 [phone] Reason for Visit * Reason Comments Left Shoulder Pain Encounter Details Date Type Department Care Team (Late st Contact Info) Description 09/12/2017 11:10 AM EDT Office [place] [address] Kedar Rowe MD [facility] DR [place] [address] Chronic left shoulder pain (Primary Dx) Social [...] radial, ulnar. EPL, FPL, interossei intact. Positive Winona's test. With Speed and Yergason she has [...] 11/08/2023 1:45 PM EDT [place] [address] Kelsea Shafer MD [facility] OBSTETRICS [place] [address] 11/08/2023 3:00 PM EDT Routine Obstetrics [place] [phone] Ab, Lexii Khan CNM [facility] [place] [address] 05/23/2024 Hospital [place] [phone] Maite Malloy MD [facility] DR OBSTETRICS [place] [address] documented as of this encounter Visit Diagnoses [...] mg documented in this encounter Care Teams Media Consultant Relationship Specialty Start Date End Date Valencia Adhikari APRN [address] [place] [address] PCP - General 04/21/14 07/04/23 documented as of this encounter
--- OUTSIDE RECORDS SUMMARY | 2023-10-31 03:21 | XMS_ITS | Encounter Summary ---
Author Organization [facility] Address [facility] [place] [address] Care Team Providers Care Crystal Gazer Name Role Phone Valencia Adhikari APRN Primary Care Provider +1 [phone] Reason for Visit * Reason Comments Pain Management L posterior shoulder muscular pain * Consultation (Routine) - Closed Specialty Diagnoses / Procedures Referred By Contac t Referred To Contact Pain Management Diagnoses Chronic left shoulder pain Kedar Santos MD [facility] [place] [address] [facility] [address] [place] [phone] Referral ID Status Reason Start Date Expiration Date V isits Requested Visits Authorized [id number] Closed Consult, Test & Treat 05/15/2017 05/15/2018 1 1 Encounter Details Date Type Department Care Team (Late st Contact Info) Description 06/05/2017 11:30 AM EST Office Visit [place] [phone] Deacon Webster MD [facility] [place] [address] Rotator cuff tendinitis, left; Biceps tendinitis of [...] as an apple and a at a fpc. She was pushing a wheeled table which [...] Average:5/10 She participated in physical therapy at [facility] in [facility]. Her therapy had been going well however she describes an event occurring approximately one month earlierin which she heard a pop in her shoulder and her pain returned. She is currently treating her pain with Voltaren gel and lidocaine patches. She underwent MRI imaging of the left shoulder in September 2016 at [facility] which was normal. She underwent bilateral upper [...] [facility] which didn't provide her with some [...] a benzodiazepine? No Current use of other YAM CURER depressant? No Current diagnosis of Obstructive Seep [...] MONITORING, SETUP performed by JUAN ESPARZA at [facility] MAIN OR ??? PRO THYROIDECTOMY, MALIG, LTD NECK SURG 03/22/2011 THYROIDECTOMY, FOR MALIGNANCY, LIMITED NECK DISSECTION performed by JUAN ESPARZA at [facility] MAIN OR ??? TONSILLECTOMY 2010 ??? [...] Years of education: 17 Occupational History ??? [employer] Social History Main Topics ??? Smoking status: [...] DATA: MRI of left shoulder 2017 at [facility] The results and images of this [...] 11/08/2023 1:45 PM EDT [place] [address] Kelsea Shafer MD [facility] OBSTETRICS [place] [address] 11/08/2023 3:00 PM EDT Routine Obstetrics [place] [phone] Lexii Berger CNM [facility] [place] [address] 05/23/2024 Hospital [place] [address] Maite Malloy MD [facility] DR OBSTETRICS [place] [address] documented as of this encounter Visit Diagnoses Diagnosis Rotator cuff tendinitis, left Biceps tendinitis of left shoulder documented in this encounter Care Teams Crystal Gazer Relationship Specialty Start Date End Date Valencia Adhikari APRN [address] [place] [address] PCP - General 04/21/14 07/04/23 documented as of this encounter
--- OUTSIDE RECORDS SUMMARY | 2023-10-31 03:21 | XMS_ITS | Encounter Summary ---
Author Organization [facility] Address [facility] [place] [address] Care Team Providers Care Cobol Engineer Name Role Phone Valencia Adhikari APRN Primary Care Provider [phone] [phone] Reason for Referral * Physical Therapy (Routine) - Specialty Diagnoses / Procedures Referred By Lamont riggins Referred To Contact Physical Therapy Diagnoses Chronic left shoulder pain Scapular dyskinesis Alicia Oviedo APRN [facility] [place] [address] Referral ID Status Reason Start Date Expiration Date V isits Requested Visits Authorized [id number] Evaluate and Treat 09/13/2017 03/12/2018 12 12 Reason for Visit * Reason Comments Left Shoulder Pain WC DOI: 09/06/16 Encounter Details Date Type Department Care Team (Late st Contact Info) Description 09/13/2017 1:55 PM EDT Office [place] [address] Laura Schneider MD [facility] [place] [address] Scapular dyskinesis (Primary Dx); Chronic left shoulder [...] this encounter Progress Notes * Alicia Oviedo, MANAGER CABLE - 09/13/2017 1:55 PM EDT This patient [...] She has been to multiple providers at [facility] for her pain including Dr. Santos, Meliton [...] MONITORING, SETUP performed by JUAN ESPARZA at [facility] MAIN OR ??? PRO THYROIDECTOMY, MALIG, LTD NECK SURG 03/22/2011 THYROIDECTOMY, FOR MALIGNANCY, LIMITED NECK DISSECTION performed by JUAN ESPARZA at [facility] MAIN OR ??? TONSILLECTOMY 2010 ??? UPPER [...] ?? Empty can test - Negative ?? Bassett's test - N/A ?? Labrum tests ?? [...] remain out of work at this time, [facility] RTW forms completed. Voc rehab recommended. Pt agrees, questions solicited/answered, will return as scheduled and as needed for concerns or questions. Pt understands they may also call us prn for above. documented in this encounter Plan of Treatment Upcoming Encounters Date Type Department Care Team (Late st Contact Info) Description 11/08/2023 1:45 PM EDT Appointment [place] [address] Kelsea Shafer MD [facility] OBSTETRICS [place] [address] 11/08/2023 3:00 PM EDT Routine Obstetrics [place] [phone] Ab, Lexii C, [place] [address] 05/23/2024 [place] [phone] Maite Malloy MD [facility] OBSTETR[place] [address] Scheduled Referrals Name Type Priority Associated Diagnoses Orde r Schedule Referral to Physical Therapy Outpatient Referral Routine Chronic left shoulder pain Scapular dyskinesis Ordered: 09/13/2017 documented as of this encounter Visit Diagnoses Diagnosis Scapular dyskinesis- Primary Lack of coordination Chronic left shoulder pain Pain in joint, shoulder region documented in this encounter Care Teams Cobol Engineer Relationship Specialty Start Date End Date Valencia Adhikari APRN [address] [place] [address] PCP - General 04/21/14 07/04/23 documented as of this encounter
--- OUTSIDE RECORDS SUMMARY | 2023-10-31 03:21 | XMS_ITS | Encounter Summary ---
Author Organization [facility] Address [facility] [place] [address] Care Team Providers Care Straight Cutter Name Role Phone OnofreMarilynValencia Oralia SLADE Primary Care Provider [phone] [phone] Encounter Details Date Type Department Care Team (Late st Contact Info) Description 08/09/2017 Orders Only Psychiatry [place] [address] Argelia Mccray APRN [facility] [place] [address] Depression, unspecified depression type Social History Tobacco [...] 1:45 PM EDT App[place] [address] Kelsea Shafer MD [facility] OBSTETRICS AND GYNECOLOGY [place], [place] [phone] 11/08/2023 3:00 PM EDT Routine Obstetrics [place] [address] Ab, Lexii Khan CNM [facility] [place] [address] 05/23/2024 Hospital [place] [phone] Maite Malloy MD [facility] OBSTETRICS [place] [address] documented as of this encounter Visit Diagnoses Diagnosis Depression, unspecified depression type documented in this encounter Care Teams Straight Cutter Relationship Specialty Start Date End Date Valencia Adhikari APRN [address] [place] [address] PCP - General 04/21/14 07/04/23 documented as of this encounter
--- OUTSIDE RECORDS SUMMARY | 2023-10-31 03:21 | XMS_ITS | Encounter Summary ---
Author Organization [facility] [place] [address] Care Team Providers Care Coat Padder Name Role Phone Valencia Adhikari APRN Primary Care Provider +1 [phone] Encounter Details Date Type Department Care Team (Latest Contact Info) Description 04/12/2016 10:00 AM EST - 04/12/2016 11:59 PM [facility] Hospital [place] [phone] Valencia Adhikari APRN [address] [place], [place] [address] Galactorrhea Discharge Disposition: Home Social History Tobacco [...] 11/08/2023 1:45 PM EDT Appointment Ultrasound at [place] [phone] Kelsea Shafer MD [facility] OBSTETRICS [place] [address] 11/08/2023 3:00 PM EDT Routine Obstetrics and Gynecology at [place] [phone] Ab, Lexii Khan, CNM [facility] [place] [address] 05/23/2024 Hospital Encounter Birthing [place] [phone] Maite Malloy MD [facility] OBSTETRICS [place] [address] documented as of this encounter Procedures Procedure [...] ectasia, mass, or focal finding. Valencia Adhikari APRN IMG MAMMO ORDERAB LES documented in this encounter Visit Diagnoses Diagnosis Galactorrhea Galactorrhea not associated with childbirth documented in this encounter Care Teams Coat Padder Relationship Specialty Start Date End Date Valencia Adhikari APRN [address] [place] [address] PCP - General 04/21/14 07/04/23 documented as of this encounter
--- OUTSIDE RECORDS SUMMARY | 2023-10-31 03:21 | XMS_ITS | Encounter Summary ---
Author Organization [facility] [place] [address] Care Team Providers Care Impregnator And Drier Helper Name Role Phone Valencia Adhikari APRN Primary Care Provider [phone] [phone] Encounter Details Date Type Department Care Team (Late st Contact Info) Description 05/08/2016 4:00 PM EST Office Visit Obstetrics [place] [address] Valencia Bourne CNM [facility] OBSTETRICS & [place] [address] IUD check up Social History Tobacco Use [...] 11/08/2023 1:45 PM EDT Appointment Ultrasound at [place] [phone] Kelsea Shafer MD [facility] OBSTETRICS AND GYNEC[place] [address] 11/08/2023 3:00 PM EDT Routine Obstetrics [place] [address] AbLexii CNM [facility] [place]AL Ramírez [address] 05/23/2024 Hospital [place] [address] Maite Malloy MD [facility] [address] [place] [address] documented as of this encounter Visit Diagnoses Diagnosis IUD check up Surveillance of previously prescribed intrauterine contraceptive device documented in this encounter Care Teams Impregnator And Drier Helper Relationship Specialty Start Date End Date Valencia Adhikari APRN [address] [place] [address] PCP - General 04/21/14 07/04/23 documented as of this encounter
--- OUTSIDE RECORDS SUMMARY | 2023-10-31 03:21 | XMS_ITS | Encounter Summary ---
Author Organization [facility] [place] [address] Care Team Providers Care Instructor Dramatic Arts Name Role Phone Valencia Adhikari APRN Primary Care Provider +1 [phone] Reason for Visit * Reason Onset Date Comments Other 02/15/2017 Encounter Details Date Type Department Care Team (Late st Contact Info) Description 02/15/2017 [place] [phone] Isaac Osorio MD [facility] [place] [address] Other Social History Tobacco Use Types Packs/Day [...] clinical significance. * Telephone Encounter - Lianna Underwood - 02/21/2017 3:06 PM EST Joceline calling back as she has not heard from Dr. Osorio. Please call to discuss. * Telephone Encounter - Jeanette Doss - 02/15/2017 12:46 PM EDT Caller: Joceline If not Pt / Relation to pt: [facility] Best time to reach caller: Anytime at Dr Osorio's convenience Before 2:30pm - Informed caller that nurse will call back by the end of the day Best number to reach caller: [phone] Reason for call: Joceline from [facility] called. She would like to speak with Dr Osorioregarding the MRI patient had done [facility] on 02/09/2017 documented in this encounter Plan of Treatment Upcoming Encounters Date Type Department Care Team (Late st Contact Info) Description 11/08/2023 1:45 PM EDT Appointment [place] [phone] Kelsea Shafer MD [facility] OBSTETRICS [place] [address] 11/08/2023 3:00 PM EDT Routine Obstetrics [place] [address] Lexii Berger CNM [facility] [place] [address] 05/23/2024 Hospital [place] [address] Maite Malloy MD [facility] OBSTETRICS [place] [address] documented as of this encounter Visit Diagnoses Not on filedocumented in this encounter Care Teams Instructor Dramatic Arts Relationship Specialty Start Date End Date Valencia Adhikari APRN [address] [place] [address] PCP - General 04/21/14 07/04/23 documented as of this encounter
--- OUTSIDE RECORDS SUMMARY | 2023-10-31 03:21 | XMS_ITS | Encounter Summary ---
Author Organization [facility] [place] [address] Care Team Providers Care Embedded Systems Software Engineer Name Role Phone Valencia Adhikari APRN Primary Care Provider [phone] [phone] Encounter Details Date Type Department Care Team (Late st Contact Info) Description 10/04/2017 9:00 AM EDT Office Visit Psychiatry and Behavioral [place] [address] Argelia Mccray LEAD ASSEMBLER [facility] [place] [address] Bipolar affective disorder, remission status unspecified; Depression, [...] and normal rhythm ?? Language: fluent in north korean ?? Mood: Better ?? Affect: bright and [...] 1:45 PM EDT Appointment [place] [phone] Kelsea Shafer MD [facility] OBSTETRICS [place] [address] 11/08/2023 3:00 PM EDT Routine Obstetrics and Gynecology at [facility] [place] [address] Ab, Lexii C, CNM [facility] [place] [address] 05/23/2024 Hospital Encounter Birthing [facility] [place] [address] Maite Malloy MD [facility] [place] [address] documented as of this encounter Procedures Procedure [...] 10:08 AM EDT) Neutrophils % 71.5 % [facility] Neutr Abs (ANC) 5.34 1.70 - 6.10 x10(3)/[facility] Lymphocytes % 16.6 % [facility] Lymphocytes Abs 1.2 0.9 - 3.2 x10(3)/[facility] Monocytes % 10.2 % [facility] Monocyte Abs 0.8 0.3 - 0.9 x10(3)/[facility] Eosinophils % 0.8 % [facility] Eosinophils Abs 0.1 0.0 - 0.4 x10(3)/[facility] Basophils % 0.5 % [facility] Basophils Abs 0.0 0.0 - 0.1 x10(3)/[facility] Immature Gran % 0.40 % [facility] Comment: Immature granulocytes(IG's)percentage and absolute count will include metamyelocytes, myelocytes, and promyelocytes. Blood smears from CBCs yielding IG's will be scanned manually for concordance. If this scan disagrees with the automated IG or if promyelocytes are noted, a manual differential will be performed. Kimmy Gran Abs 0.03 0.00 - 0.04 x10(3)/[facility] Blood specimen (specimen) 10/04/2017 10:08 AM EDT 10/04/2017 10:14 AM EDT Narrative Resulting Agency Comment Spec In Lab Argelia Mccray APRN HEMATOLOGY [place] [facility] [place] [address] * (ABNORMAL) Hemogram (10/04/2017 10:08 AM EDT) WBC 7.5 4.0 - 9.5 x10(3)/[facility] RBC 4.03 4.00 - 5.21 x10(6)/[facility] Hemoglobin 13.6 11.7 - 15.5 gm/dL [facility] Hematocrit 40.0 35.7 - 45.8 % [facility] MCV 99.3(H) 82.6 - 94.4 fL [facility] MCH 33.7(H) 27.1 - 32.0 pg [facility] MCHC 34.0 31.7 - 35.0 gm/dL [facility] Platelets 198 145 - 357 x10(3)/[facility] RDWSD 47.5(H) 37.0 - 46.0 [facility] RDWCV 12.9 11.5 - 14.1 % [facility] MPV 11.5 7.6 - 12.9 [facility] nRBC % Auto 0.0 % [facility] nRBC Abs Auto 0.000 0.000 - 0.000 x10(3)/[facility] Blood specimen (specimen) 10/04/2017 10:08 AM EDT 10/04/2017 10:14 AM EDT Narrative Resulting Agency Comment Spec In Lab Argelia Mccray APRN HEMATOLOGY [place] [facility] [place] [address] * (ABNORMAL) Comprehensive metabolic panel (non-fasting) (10/04/2017 10:08 AM EDT) Glucose Lvl 94 65 - 199 mg/dL [facility] Comment:Diabetes: >=200 mg/d L plus symptoms BUN 7(L) 8 - 18 mg/dL [facility] Creatinine 0.74 0.70 - 1.20 mg/dL [facility] Sodium 142 135 - 145 mmol/L [facility] Potassium 4.2 3.5 - 5.0 mmol/L [facility] Comment: Please note: ??Patients with WBC >100,000 may have falsely elevated Potassium levels. ??For accurate Potassium quantification in these patients send serum separator tube (gold top) for subsequent determinations. ??Contact the Clinical Chemistry Laboratory if there are any questions. Chloride 107 98 - 107 mmol/L [facility] CO2 22 22 - 31 mmol/L [facility] Anion Gap 13 5 - 15 mmol/L [facility] Calcium 9.3 8.5 - 10.5 mg/dL [facility] Total Protein 6.6 6.1 - 8.0 gm/dL [facility] Albumin 4.2 3.2 - 5.2 gm/dL [facility] AST 14 0 - 30 unit/L [facility] ALT 11 0 - 30 unit/L [facility] Alk Phos 67 40 - 104 unit/L [facility] Total Bilirubin 0.9 0.2 - 1.3 mg/dL [facility] Estimated GFR 112 >=60 mL/min/1. 73 m?? [facility] Comment: The eGFR was calculated using the CKD-EPI equation. As with all creatinine based estimates of kidney function, eGFR values calculated with the CKD-EPI equation are not accurate in patients with acute kidney failure, extremes of body mass or the acutely ill. http://Upside.TribeHR/DHnkdep http://Vaurum/DHMCnkf eGFR 130 >=60 mL/min/1. 73 m?? [facility] Comment: The eGFR was calculated using the CKD-EPI equation. As with all creatinine based estimates of kidney function, eGFR values calculated with the CKD-EPI equation are not accurate in patients with acute kidney failure, extremes of body mass or the acutely ill. http://Upside.TribeHR/DHnkdep http://Upside.TribeHR/DHMCnkf Blood specimen (specimen) 10/04/2017 10:08 AM EDT 10/04/2017 10:14 AM EDT Narrative Resulting Agency Comment Spec In Lab Argelia Mccray APRN CHEMISTRY ORDER AMANDA Performing Organization Address City/[facility]/ZIP Co de Phone Number [facility] [place] [address] * (ABNORMAL) Lamotrigine Lvl (10/04/2017 10:08 AM EDT) Lamotrigine Lvl 1.4(L) 2.5 - 15.0 mcg/mL [facility] Comment: ADDITIONAL INFORMATION This test was developed and its performance characteristics determined by [facility] in a manner consistent with CLIA requirements. This test has not been cleared or approved by the U.S. Food and Drug Administration. Test Performed by: [facility] [address] [place] [address] Blood specimen (specimen) 10/04/2017 10:08 AM EDT 10/04/2017 11:55 AM EDT Narrative Resulting Agency Comment Spec In Lab Argelia Mccray LEAD ASSEMBLER CHEMISTRY ORDER AMANDA Performing Organization Address [facility]/ZIP Co de Phone Number [facility] [place] [address] * TSH (10/04/2017 10:08 AM EDT) TSH 0.90 0.27 - 4.20 mlU/ML [facility] Blood specimen (specimen) 10/04/2017 10:08 AM EDT 10/04/2017 10:14 AM EDT Narrative Resulting Agency Comment Spec In Lab Argelia Mccray LEAD ASSEMBLER CHEMISTRY ORDER AMANDA [facility] [place] [address] * Thyroglobulin Antibody (10/04/2017 10:08 AM EDT) Thyroglob Ab <20.0 0.0 - 40.0 IU/mL [facility] Blood specimen (specimen) 10/04/2017 10:08 AM EDT 10/04/2017 1:15 PM EDT Narrative Resulting Agency Comment Spec In Lab Argelia Mccray APRN CHEMISTRY ORDER AMANDA Performing Organization Address City/[facility]/ZIP Co de Phone Number [facility] [place] [address] * (ABNORMAL) T4, free (10/04/2017 10:08 AM EDT) Free T4 1.74(H) 0.93 - 1.70 ng/dL [facility] Blood specimen (specimen) 10/04/2017 10:08 AM EDT 10/04/2017 10:14 AM EDT Narrative Resulting Agency Comment Spec In Lab Argelia Mccray APRN CHEMISTRY ORDER AMANDA [facility] [place] [address] * T4 Total (10/04/2017 10:08 AM EDT) T4, total 8.5 5.1 - 10.8 mcg/dL [facility] Comment: Reference Range: [place] Cord Blood: ??6.9-14.4 mcg/dL Females: ??7.2-14.2 mcg/dL Pediatric ranges: ??Interpret with caution-ranges have not been verified Blood specimen (specimen) 10/04/2017 10:08 AM EDT 10/04/2017 10:14 AM EDT Narrative Resulting Agency Comment Spec In Lab Argelia Mccray LEAD ASSEMBLER CHEMISTRY ORDER AMANDA [facility] [place] [address] * T3, free (10/04/2017 10:08 AM EDT) T3, Free 3.8 2.0 - 4.4 pg/mL [facility] Blood specimen (specimen) 10/04/2017 10:08 AM EDT 10/04/2017 10:14 AM EDT Narrative Resulting Agency Comment Spec In Lab Argelia Mccray APRN CHEMISTRY ORDER AMANDA Performing Organization Address [facility] Co de Phone Number [facility] [place] [address] documented in this encounter Visit Diagnoses Diagnosis Bipolar affective disorder, remission status unspecified Depression, unspecified depression type Anxiety Anxiety state, unspecified documented in this encounter Care Teams Embedded Systems Software Engineer Relationship Specialty Start Date End Date Valencia Adhikari APRN [address] [place] [address] PCP - General 04/21/14 07/04/23 documented as of this encounter
--- OUTSIDE RECORDS SUMMARY | 2023-10-31 03:21 | XMS_ITS | Encounter Summary ---
Author Organization [facility] Address [facility] [place] [address] Care Team Providers Care Malt Specifications Control Assistant Name Role Phone Valencia Adhikari APRN Primary Care Provider +1 [phone] Reason for Visit * Reason Onset Date Comments Questions 05/17/2017 Encounter Details Date Type Department Care Team (Late Contact Info) Description 05/17/2017 Telephone [place] [phone] Kedar Santos MD [facility] [place] [address] Questions Social History Tobacco Use Types Packs/Day [...] the patient who advised the images from [facility] ( MRI and XR ) will be sent to [facility] today documented in this encounter Plan of Treatment Upcoming Encounters Date Type Department Care Team (Late st Contact Info) Description 11/08/2023 1:45 PM EDT Appointment Ultrasound at [place] [address] [facility] [place] [address] 11/08/2023 3:00 PM EDT Routine Obstetrics and Gynecology at [place] [phone] Ab, [facility]ii C[facility] [place] [id number] 05/23/2024 Hospital [place] [address] [facility] [place] [address] documented as of this encounter Visit Diagnoses Not on filedocumented in this encounter Care Teams Malt Specifications Control Assistant Relationship Specialty Start Date End Date Valencia Adhikari APRN [address] [place] [address] PCP - General 04/21/14 07/04/23 documented as of this encounter
--- OUTSIDE RECORDS SUMMARY | 2023-10-31 03:21 | XMS_ITS | Encounter Summary ---
[place] [address] Care Team Providers Care Video Producer Name Role Phone Valencia Adhikari APRN Primary Care Provider +1 [phone] Reason for Referral * Diagnostic Test (Routine) - Closed Specialty Diagnoses / Procedures Referred By Lamont riggins Referred To Contact Radiology Diagnoses Paresthesias/numbness Procedures MRI Brain wwo Contrast (Generic) Joceline Bustillo APRN [address] [place] [address] [place] [address] Referral ID Status Reason Start Date Expiration Date V isits Requested Visits Authorized [id number] Closed Specialty Service Requested 01/12/2017 01/12/2018 1 1 Reason for Visit * Diagnostic Test (Routine) - Closed Specialty Diagnoses / Procedures Referred By Contac gilson Referred To Contact Radiology Diagnoses Paresthesias/numbness Procedures MRI Brain wwo Contrast (Generic) Joceline Bustillo APRN [address] [place] [address] [place] [address] Referral ID Status Reason Start Date Expiration Date V isits Requested Visits Authorized [id number] Closed Specialty Service Requested 01/12/2017 01/12/2018 1 1 Encounter Details Date Type Department Care Team (Latest Contact Info) Description 02/09/2017 8:18 AM EDT - 02/09/2017 11:59 PM EDT [place] [address] Joceline Bustillo APRN [address] [place] [address] Paresthesias/numbne ss Discharge Disposition: Home Social History [...] 11/08/2023 1:45 PM EDT [place] [address] Kelsea Shafer MD [facility] OBSTETRICS [place] [address] 11/08/2023 3:00 PM EDT Routine Obstetrics [place] [address] Ab, Lexii C, CNM [facility] [place] [address] 05/23/2024 [place] [address] Maite Malloy MD [facility] [place] [address] documented as of this encounter Procedures Procedure [...] or abnormal enhancement. 11:17 AM Joceline Bustillo LEGAL SECRETARY RECEPTIONIST IMG MRI ORDERABL ES documented in this [...] mLs documented in this encounter Care Teams Video Producer Relationship Specialty Start Date End Date Valencia Adhikari APRN [address] [place] [address] PCP - General 04/21/14 07/04/23 documented as of this encounter
--- OUTSIDE RECORDS SUMMARY | 2023-10-31 03:21 | XMS_ITS | Encounter Summary ---
Author Organization [facility] Address [facility] [place] [address] Care Team Providers Care Armoured Corps Officer Name Role Phone Valencia Adhikari APRN Primary Care Provider +1 [phone] Reason for Visit * Reason Comments Follow-up left shoulder pain Encounter Details Date Type Department Care Team (Late st Contact Info) Description 07/13/2017 1:00 PM EDT Office Visit [place] [phone] Meliton Larkin PA [facility] [place] [address] Chronic left shoulder pain Social History Tobacco [...] 1:45 PM EDT Appointment [place] [address] Kelsea Shafer MD [facility] OBSTETRICS [place] [address] 11/08/2023 3:00 PM EDT Routine Obstetrics [place] [phone] AbLexii, JAYNEM [facility] [place] [address] 05/23/2024 Hospital [place] [address] Maite Malloy MD [facility] OBSTETRICS AND [place]ECOLOGY [place], [place] [phone] documented as of this encounter Visit Diagnoses Diagnosis Chronic left shoulder pain Pain in joint, shoulder region documented in this encounter Care Teams Armoured [employer] Officer Relationship Specialty Start Date End Date Valencia Adhikari APRN [address] [place] [address] PCP - General 04/21/14 07/04/23 documented as of this encounter
--- OUTSIDE RECORDS SUMMARY | 2023-10-31 03:21 | XMS_ITS | Encounter Summary ---
Author Organization [facility] [place] [address] Care Team Providers Care Director Supplier Quality Name Role Phone Valencia Adhikari APRN Primary Care Provider [phone] [phone] Reason for Visit * Reason Comments Bipolar Disorder Encounter Details Date Type Department Care Team (Late st Contact Info) Description 08/30/2017 9:00 AM EDT Office Visit Psychiatry [place] [phone] Argelia Mccray COMMERCIAL JOURNEYMAN ELECTRICIAN [facility] [place] [address] Anxiety; Depression, unspecified depression type Social History [...] this encounter Progress Notes * Argelia Mccray, COMMERCIAL JOURNEYMAN ELECTRICIAN - 08/30/2017 9:00 AM EDT ESTABLISHED ADULT [...] intact during interview ? Language: Normal/fluent in Yi ? Fund of Knowledge: Appropriate Psychotherapeutic Interventions [...] 11/08/2023 1:45 PM EDT Appointment [place] [phone] Kelsea Shafer MD [facility] OBSTETRICS [place] [address] 11/08/2023 3:00 PM EDT Routine Obstetrics [place] [address] Lexii Berger CNM [facility] [place] [address] 05/23/2024 Hospital [place] [address] Maite Malloy MD [facility] [address] OBSTETRICS [place] [address] documented as of this encounter Procedures Procedure [...] 10:05 AM EDT) Neutrophils % 63.1 % [facility] Neutr Abs (ANC) 5.14 1.70 - 6.10 x10(3)/mcL [facility] Lymphocytes % 24.4 % [facility] Lymphocytes Abs 2.0 0.9 - 3.2 x10(3)/[facility] Monocytes % 10.0 % [facility] Monocyte Abs 0.8 0.3 - 0.9 x10(3)/[facility] Eosinophils % 1.5 % [facility] Eosinophils Abs 0.1 0.0 - 0.4 x10(3)/[facility] Basophils % 0.6 % [facility] Basophils Abs 0.0 0.0 - 0.1 x10(3)/[facility] Immature Gran % 0.40 % [facility] Comment: Immature granulocytes(IG's)percentage and absolute count will include metamyelocytes, myelocytes, and promyelocytes. Blood smears from CBCs yielding IG's will be scanned manually for concordance. If this scan disagrees with the automated IG or if promyelocytes are noted, a manual differential will be performed. Kimmy Gran Abs 0.03 0.00 - 0.04 x10(3)/[facility] Blood specimen (specimen) 08/30/2017 10:05 AM EDT 08/30/2017 10:13 AM EDT Narrative Resulting Agency Comment Spec In Lab Argelia Mccray APRN HEMATOLOGY [place] [facility] [place] [address] * (ABNORMAL) Hemogram (08/30/2017 10:05 AM EDT) WBC 8.1 4.0 - 9.5 x10(3)/[facility] RBC 3.98(L) 4.00 - 5.21 x10(6)/[facility] Hemoglobin 13.6 11.7 - 15.5 gm/dL [facility] Hematocrit 40.5 35.7 - 45.8 % [facility] MCV 101.8(H) 82.6 - 94.4 fL [facility] MCH 34.2(H) 27.1 - 32.0 pg [facility] MCHC 33.6 31.7 - 35.0 gm/dL [facility] Platelets 185 145 - 357 x10(3)/[facility] RDWSD 48.9(H) 37.0 - 46.0 fL [facility] RDWCV 12.9 11.5 - 14.1 % [facility] MPV 11.6 7.6 - 12.9 fL [facility] nRBC % Auto 0.0 % [facility] nRBC Abs Auto 0.000 0.000 - 0.000 x10(3)/[facility] Blood specimen (specimen) 08/30/2017 10:05 AM EDT 08/30/2017 10:13 AM EDT Narrative Resulting Agency Comment Spec In Lab Argelia Mccray APRN HEMATOLOGY [place] [facility] [place] [address] * (ABNORMAL) Lamotrigine Lvl (08/30/2017 10:05 AM EDT) Lamotrigine Lvl 1.9(L) 2.5 - 15.0 mcg/mL [facility] Comment: ADDITIONAL INFORMATION This test was developed and its performance characteristics determined by [facility] in a manner consistent with CLIA requirements. This test has not been cleared or approved by the U.S. Food and Drug Administration. Test Performed by: [facility] - [facility] [address] [place] [address] Blood specimen (specimen) 08/30/2017 10:05 AM EDT 08/30/2017 1:24 PM EDT Narrative Resulting Agency Comment Spec In Lab Argelia Mccray [facility] ORDER AMANDA Performing Organization Address [facility] Co de Phone Number [facility] [place] [address] * Vitamin D, 25-Hydroxy (08/30/2017 10:05 AM EDT) 25-OH Vit D Total 33 30 - 100 ng/mL [facility] Comment: Deficient <10 ng/mL Insufficient 10 to 29 ng/mL Sufficient 30 to 100 ng/mL Potential Intoxication >100 ng/mL According to the US National Osteoporosis Foundation, Vitamin D concentrations >30 ng/mL are sufficient to protect bone health. ??The National Kidney Foundation has similarly stated that patients with Vitamin D concentrations <30ng/mL should be considered to be insufficient or deficient. http://[employer].WePay/nkf-guidelines http://Fitbay/nejm-VitD The [employer] i[employer] Vitamin D Immunoassay detects both 25-OH Vitamin D2 and 25-OH Vitamin D3, but only a total Vitamin D concentration is reported. Blood specimen (specimen) 08/30/2017 10:05 AM EDT 08/30/2017 1:29 PM EDT Narrative Resulting Agency Comment Spec In Lab Argelia Levinefannypat [facility] ORDER AMANDA Performing Organization Address [facility] Co de Phone Number [facility] [place] [address] * (ABNORMAL) Comprehensive metabolic panel (non-fasting) (08/30/2017 10:05 AM EDT) Glucose Lvl 85 65 - 199 mg/dL [facility] Comment:Diabetes: >=200 mg/d L plus symptoms BUN 7(L) 8 - 18 mg/dL [facility] Creatinine 0.68(L) 0.70 - 1.20 mg/dL [facility] Sodium 138 135 - 145 mmol/L [facility] Potassium 4.5 3.5 - 5.0 mmol/L [facility] Comment: Please note: ??Patients with WBC >100,000 may have falsely elevated Potassium levels. ??For accurate Potassium quantification in these patients send serum separator tube (gold top) for subsequent determinations. ??Contact the Clinical Chemistry Laboratory if there are any questions. Chloride 102 98 - 107 mmol/L [facility] CO2 27 22 - 31 mmol/L [facility] Anion Gap 9 5 - 15 mmol/L [facility] Calcium 8.8 8.5 - 10.5 mg/dL [facility] Total Protein 6.3 6.1 - 8.0 gm/dL [facility] Albumin 4.5 3.2 - 5.2 gm/dL [facility] AST 12 0 - 30 unit/L [facility] ALT 9 0 - 30 unit/L [facility] Alk Phos 70 40 - 104 unit/L [facility] Total Bilirubin 0.5 0.2 - 1.3 mg/dL [facility] Estimated GFR >60 >=60 [facility] Comment: The reported eGFR should be multiplied by 1.2 for patients. The MDRD is not an appropriate measure of renal function for patients with body mass extremes or in patients with acute kidney failure. http://[employer].WePay/DHnkdep http://Fitbay/DHMCnkf Blood specimen (specimen) 08/30/2017 10:05 AM EDT 08/30/2017 10:13 AM EDT Narrative Resulting Agency Comment Spec In Lab Argelia Mccray APRN CHEMISTRY ORDER AMANDA [facility] [place] [address] * (ABNORMAL) TSH (08/30/2017 10:05 AM EDT) TSH 15.40(H) 0.27 - 4.20 mlU/ML [facility] Blood specimen (specimen) 08/30/2017 10:05 AM EDT 08/30/2017 10:13 AM EDT Narrative Resulting Agency Comment Spec In Lab Argelia Mccray APRN CHEMISTRY ORDER AMANDA [facility] [place] [address] * Thyroglobulin Antibody (08/30/2017 10:05 AM EDT) Thyroglob Ab <20.0 0.0 - 40.0 IU/mL [facility] Comment: Assay performed is the [employer] Immulite Tg-Ab immunometric assay. (Cutoff for TgAb negativity is <20 IU/ml) Blood specimen (specimen) 08/30/2017 10:05 AM EDT 08/30/2017 1:39 PM EDT Narrative Resulting Agency Comment Spec In Lab Argelia Mccray COMMERCIAL JOURNEYMAN ELECTRICIAN CHEMISTRY ORDER AMANDA [facility] [place] [address] * T4, free (08/30/2017 10:05 AM EDT) Free T4 1.58 0.93 - 1.70 ng/dL [facility] Blood specimen (specimen) 08/30/2017 10:05 AM EDT 08/30/2017 10:13 AM EDT Narrative Resulting Agency Comment Spec In Lab Argelia Mccray APRN CHEMISTRY ORDER AMANDA [facility] [place] [address] * T4 Total (08/30/2017 10:05 AM EDT) T4, total 7.4 5.1 - 10.8 mcg/dL [facility] Comment: Reference Range: Cord Blood: ??6.9-14.4 mcg/dL Females: ??7.2-14.2 mcg/dL Pediatric ranges: ??Interpret with caution-ranges have not been verified Blood specimen (specimen) 08/30/2017 10:05 AM EDT 08/30/2017 10:13 AM EDT Narrative Resulting Agency Comment Spec In Lab Argelia Mccray COMMERCIAL JOURNEYMAN ELECTRICIAN CHEMISTRY ORDER AMANDA Performing Organization Address City/[facility]/ZIP Co de Phone Number [facility] [place] [address] * T3, free (08/30/2017 10:05 AM EDT) T3, Free 2.8 2.0 - 4.4 pg/mL [facility] Blood specimen (specimen) 08/30/2017 10:05 AM EDT 08/30/2017 10:13 AM EDT Narrative Resulting Agency Comment Spec In Lab Argelia Mccray COMMERCIAL JOURNEYMAN ELECTRICIAN CHEMISTRY ORDER AMANDA Performing Organization Address City/[facility]/ZIP Co de Phone Number [facility] [place] [address] documented in this encounter Visit Diagnoses Diagnosis Anxiety Anxiety state, unspecified Depression, unspecified depression type documented in this encounter Care Teams Director Supplier Quality Relationship Specialty Start Date End Date Valencia Adhikari APRN [address] [place] [address] PCP - General 04/21/14 07/04/23 documented as of this encounter
--- OUTSIDE RECORDS SUMMARY | 2023-10-31 03:21 | XMS_ITS | Encounter Summary ---
Author Organization [facility] [place] [address] Care Team Providers Care Inclusion Manager Name Role Phone Valencia Adhikari APRN Primary Care Provider [phone] [phone] Encounter Details Date Type Department Care Team (Late st Contact Info) Description 08/09/2017 Telephone Psychiatry [place] [address] Geovanna Méndez Social History Tobacco Use Types [...] for her there. Her phone number is [phone] Sandie Austin documented in this encounter Plan of Treatment Upcoming Encounters Date Type Department Care Team (Late st Contact Info) Description 11/08/2023 1:45 PM EDT Appointment Ultrasound at [place] [address] Kelsea Shafer MD [facility] OBSTETRICS [place] [address] 11/08/2023 3:00 PM EDT Routine Obstetrics [place] [address] Ab, Lexii Khan, [facility] [place] [address] 05/23/2024 Hospital [place] [address] Maite Malloy MD [facility] OBSTETRICS [place] [address] documented as of this encounter Visit Diagnoses Not on filedocumented in this encounter Care Teams Inclusion Manager Relationship Specialty Start Date End Date Valencia Adhikari APRN [address] [place] [address] PCP - General 04/21/14 07/04/23 documented as of this encounter
--- OUTSIDE RECORDS SUMMARY | 2023-10-31 03:21 | XMS_ITS | Encounter Summary ---
Author Organization [facility] Address [facility] [place] [address] Care Team Providers Care Cnc Cutting Operator Name Role Phone Valencia Adhikari APRN Primary Care Provider [phone] [phone] Reason for Visit * Reason Onset Date Comments Other 06/07/2017 Encounter Details Date Type Department Care Team (Late st Contact Info) Description 06/07/2017 Telephone Care Management [facility] [place] [address] Carmina Marshall, CLIENT EXECUTIVE [facility] [place] [address] Other Social History Tobacco Use Types Packs/Day [...] Notes * Telephone Encounter - Carmina Marshall CLIENT EXECUTIVE - 06/07/2017 9:31 AM EST Images from the original note were not included. Pt was scheduled as a NW1 [facility] pt work up w/ on 06-05-17. Workers comp insurance is: [email or web address], DOI: 09-06-16, Employer: [employer]. assessment and tx plan recommendations are the [...] with our office on an as-needed basis. [facility] was unable to attend this appt but will facilitate insurance's access to 's 2-20 note and wc form, in an effort to advocate for needed authorization for pain provider's tx recommendations. P: [facility] will be available for f/u intervention PRN. [facility] will request [facility] admin staff fax pain provider's 2-20 office note and wc form to: Jamin extruding press adjuster, w/ goal to expedite insurance's PA for 's tx plan recommendations.. ?? documented in this encounter Plan of Treatment Upcoming Encounters Date Type Department Care Team (Late st Contact Info) Description 11/08/2023 1:45 PM EDT [place] [address] Kelsea Shafer MD [facility] OBST[place] [address] 11/08/2023 3:00 PM EDT Routine Obstetrics [place] [phone] Ab, Lexii C, CNM [facility] [place] [address] 05/23/2024 Hospital [place] [address] Maite Malloy MD [facility] OBSTET[place] [address] documented as of this encounter Visit Diagnoses Not on filedocumented in this encounter Care Teams Cnc Cutting Operator Relationship Specialty Start Date End Date Valencia Adhikari APRN [address] [place] [address] PCP - General 04/21/14 07/04/23 documented as of this encounter
--- OUTSIDE RECORDS SUMMARY | 2023-10-31 03:21 | XMS_ITS | Encounter Summary ---
Author Organization [facility] Address [facility] [place] [address] Care Team Providers Care Cardiac Nurse Specialist Name Role Phone Valencia Adhikari APRN Primary Care Provider [phone] [phone] Encounter Details Date Type Department Care Team (Latest Contact Info) Description 05/15/2017 10:47 AM EST - 05/15/2017 11:59 PM [facility] Hospital Encounter XRay at [address] [place] [address] Kedar Santos MD [facility] ORTHOPAEDIC [place] [address] Left shoulder pain, unspecified chronicity Discharge Disposition: [...] 11/08/2023 1:45 PM EDT Appointment Ultrasound at [place] [phone] Kelsea Shafer MD [facility] OBSTETRICS [place] [address] 11/08/2023 3:00 PM EDT Routine Obstetrics [place] [address] Ab, Lexii Khan, CNM [facility] [place] [address] 05/23/2024 Hospital [place] [address] Maite Malloy MD [facility] OBSTETRICS [place] [address] documented as of this encounter Procedures Procedure [...] chronicity documented in this encounter Care Teams Cardiac Nurse Specialist Relationship Specialty Start Date End Date Valencia Adhikari APRN [address] [place] [address] PCP - General 04/21/14 07/04/23 documented as of this encounter
--- OUTSIDE RECORDS SUMMARY | 2023-10-31 03:21 | XMS_ITS | Encounter Summary ---
Author Organization [facility] [place] [address] Care Team Providers Care Fiber Optics Engineer Name Role Phone Valencia Adhikari APRN Primary Care Provider [phone] [phone] Encounter Details Date Type Department Care Team (Latest Contact Info) Description 09/06/2016 - 09/06/2016 11:59 PM EDT Hospital Encounter [place] [phone] Kedar Santos MD [facility] [place] [address] Discharge Disposition: Home Social History Tobacco Use [...] PM EDT Appointment Ultrasound at [place] [phone] Kelsea Shafer MD [facility] [place] [address] 11/08/2023 3:00 PM EDT Routine Obstetrics [place] [address] AbLexii CNM [facility] [place] [address] 05/23/2024 Hospital [place] [address] Maite Malloy MD [facility] [place] [address] documented as of this encounter Procedures Procedure Name Priority Date/Time Associated Diagnosis Comments FILM LIBRARY STORAGE ONLY DX ELBOW Routine 09/06/2016 12:00 AM EDT documented in this encounter Results * Film Library- Storage Only DX Elbow (09/06/2016 12:00 AM EDT) Narrative RUDY - 05/17/2017 11:18 AM EST This exam is for storage only and is auto-finalizing. Kedar Santos MD IMG FILM LIBRARY ORD ERABLES [place] documented in this encounter Visit Diagnoses Not on filedocumented in this encounter Care Teams Fiber Optics Engineer Relationship Specialty Start Date End Date Valencia Adhikari APRN [address] [place] [address] PCP - General 04/21/14 07/04/23 documented as of this encounter
--- OUTSIDE RECORDS SUMMARY | 2023-10-31 03:21 | XMS_ITS | Encounter Summary ---
Author Organization [facility] [place] [address] Care Team Providers Care Dry Wall Installer Name Role Phone Valencia Adhikari APRN Primary Care Provider +1 [phone] Reason for Visit * Reason Comments Follow-up Workers comp needs u pdate Encounter Details Date Type Department Care Team (Late st Contact Info) Description 10/15/2017 1:30 PM EDT Office [place] [address] Alicia Oviedo POULTRY PROCESSING SUPERVISOR [facility] [place] [address] Chronic left shoulder pain; Scapular dyskinesis Social [...] encounter Progress Notes * Preet Alicia A, POULTRY PROCESSING SUPERVISOR - 10/15/2017 1:30 PM EDT Chief complaint: [...] 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 [facility] RTW forms completed. Pt agrees, questions solicited/answered, [...] 11/08/2023 1:45 PM EDT Appointment Ultrasound at [place] [phone] Kelsea Shafer MD [facility] OBSTETR[place] [address] 11/08/2023 3:00 PM EDT Routine Obstetrics [place] [address] Ab, Lexii Khan CNM [facility] [place] [address] 05/23/2024 Hospital [place] [address]1000 Maite Malloy MD [facility] OBSTETRICS [place] [address] documented as of this encounter Visit Diagnoses Diagnosis Chronic left shoulder pain Pain in joint, shoulder region Scapular dyskinesis Lack of coordination documented in this encounter Care Teams Dry Wall Installer Relationship Specialty Start Date End Date Valencia Adhikari APRN [address] [place] [address] PCP - General 04/21/14 07/04/23 documented as of this encounter
--- OUTSIDE RECORDS SUMMARY | 2023-10-31 03:21 | XMS_ITS | Encounter Summary ---
Author Organization [facility] [place] [address] Care Team Providers Care Slip Filler Name Role Phone Valencia Adhikari APRN Primary Care Provider +1 [phone] Reason for Visit * Reason Comments Bipolar Disorder Depression Anxiety Encounter Details Date Type Department Care Team (Late st Contact Info) Description 08/16/2017 11:00 AM EDT Office Visit Psychiatry [place] [phone] Argelia Mccray APRN [facility] [place] [address] Bipolar affective disorder, remission status unspecified; Anxiety [...] this encounter Progress Notes * Argelia Mccray, FORMING OPERATOR - 08/16/2017 11:00 AM EDT ESTABLISHED ADULT [...] expresses her fear that her son will glove turner and former like his biological father, who has issues [...] 11/08/2023 1:45 PM EDT Appointment Ultrasound at [place] [phone] Kelsea Shafer MD [facility] OBST[place] [address] 11/08/2023 3:00 PM EDT Routine Obstetrics and Gynecology at [place] [phone] Ab, Lexii Khan, [facility] [place] [address] 05/23/2024 Hospital [place] [address] Maite Malloy MD [facility] OBSTETRICS [place] [address] documented as of this encounter Visit Diagnoses Diagnosis Bipolar affective disorder, remission status unspecified Anxiety Anxiety state, unspecified documented in this encounter Care Teams Slip Filler Relationship Specialty Start Date End Date Valencia Adhikari APRN [address] [place] [address] PCP - General 04/21/14 07/04/23 documented as of this encounter
--- OUTSIDE RECORDS SUMMARY | 2023-10-31 03:21 | XMS_ITS | Encounter Summary ---
Author Organization [facility] Address [facility] [place] [address] Care Team Providers Care Cocoa Bean Roaster Helper Name Role Phone Valencia Adhikari APRN Primary Care Provider +1 [phone] Reason for Visit * Reason Comments Left Shoulder Pain workers comp DOI Encounter Details Date Type Department Care Team (Late st Contact Info) Description 04/03/2017 9:30 AM EST Office [place] [address] Kedar Santos MD [facility] [place] [address] Chronic left shoulder pain Social History Tobacco [...] 11/08/2023 1:45 PM EDT Appointment Ultrasound at [address] Kelsea Shafer MD [facility] OBST[place] [address] 11/08/2023 3:00 PM EDT Routine Obstetrics [place] [address] AbLexii, CNJose A [facility] [place] [id number] 05/23/2024 Hospital Encounter Birthing [place] [phone] Maite Malloy MD [facility] OBSTET[place] [address] documented as of this encounter Visit Diagnoses Diagnosis Chronic left shoulder pain Pain in joint, shoulder region documented in this encounter Care Teams Cocoa Bean Roaster Helper Relationship Specialty Start Date End Date Valencia Adhikari APRN [address] [place] [address] PCP - General 04/21/14 07/04/23 documented as of this encounter
--- OUTSIDE RECORDS SUMMARY | 2023-10-31 03:21 | XMS_ITS | Encounter Summary ---
Author Organization [facility] Address [facility] [place] [address] Care Team Providers Care Senior Escrow Officer Name Role Phone Valencia Adhikari APRN Primary Care Provider +1 [phone] Reason for Referral * Physical Therapy (Routine) - Specialty Diagnoses / Procedures Referred By Lamont riggins Referred To Contact Diagnoses Left shoulder pain, unspecified chronicity Kedar Santos MD [facility] DR [place] [address] Referral ID Status Reason Start Date Expiration Date V isits Requested Visits Authorized [id number] Evaluate and Treat 02/27/2017 08/26/2017 12 12 Encounter Details Date Type Department Care Team (Late st Contact Info) Description 02/27/2017 [place] [address] Lexii Martinez, RN Social History Tobacco Use [...] can schedule. * Telephone Encounter - Lexii Martinez, RN - 02/27/2017 10:45 AM EST Patient called inquiring about scheduling the injections and physical therapy order from Dr. Santos. PT order faxed to [place], [place], , the PT office of patient's choice.Message out to schedulers to reach out and schedule the injections. Patient encouraged to call the clinicif any questions/ concerns arise. documented in this encounter Plan of Treatment Upcoming Encounters Date Type Department Care Team (Late st Contact Info) Description 11/08/2023 1:45 PM EDT [place] [address] Kelsea Shafer MD [facility] OBSTETRICS [place] [address] 11/08/2023 3:00 PM EDT Routine Obstetrics [place] [address] Lexii Berger CNM [facility] [place] [address] 05/23/2024 Hospital [place] [address] Maite Malloy MD [facility] OBSTETRICS [place] [address] Scheduled Referrals Name Type Priority Associated Diagnoses Orde r Schedule Referral to Physical Therapy Outpatient Referral Routine Left Shoulder Pain, Unspecified Chronicity Ordered: 02/27/2017 documented as of this encounter Visit Diagnoses Diagnosis Left shoulder pain, unspecified chronicity documented in this encounter Care Teams Senior Escrow Officer Relationship Specialty Start Date End Date Valencia Adhikari APRN [address] [place] [address] PCP - General 04/21/14 07/04/23 documented as of this encounter
--- OUTSIDE RECORDS SUMMARY | 2023-10-31 03:21 | XMS_ITS | Encounter Summary ---
Author Organization [facility] [place] [address] Care Team Providers Care Salesperson Women'S Hats Name Role Phone Valencia Adhikari APRN Primary Care Provider +1 [phone] Reason for Referral * Consultation (Routine) - Closed Specialty Diagnoses / Procedures Referred By Lamont t Referred To Contact Pain Management Diagnoses Chronic left shoulder pain Kedar Santos MD [facility] [place] [address] [facility] [address] [place] [address] Referral ID Status Reason Start Date Expiration Date V isits Requested Visits Authorized [id number] Closed Consult, Test & Treat 05/15/2017 05/15/2018 1 1 Reason for Visit * Reason Comments Left Shoulder Pain DOI 09/06/2016 W/C Encounter Details Date Type Department Care Team (Late st Contact Info) Description 05/15/2017 11:30 AM EST Office [place] [phone] Kedar Santos MD [facility] ORTHOPAEDIC SURGERY [place], [place] [phone] Chronic left shoulder pain Social History Tobacco [...] available for review but was done at [facility] and was reportedly negative. Next Assessment/plan: 26-year-old [...] PM EDT Appointment Ultrasound at [place] [phone] Kelsea Shafer MD [facility] OBSTET[place] [address] 11/08/2023 3:00 PM EDT Routine Obstetrics and Gynecology at [place] [phone] Ab, Lexii C, CNM [facility] [place] [address] 05/23/2024 Hospital Encounter Birthing [place] [phone] Maite Malloy MD [facility] OBSTETRICS [place] [address] Scheduled Referrals Name Type Priority Associated Diagnoses Orde r Schedule Referral to Pain Clinic Outpatient Referral Routine Chronic left shoulder pain Ordered: 05/15/2017 documented as of this encounter Visit Diagnoses Diagnosis Chronic left shoulder pain Pain in joint, shoulder region documented in this encounter Care Teams Salesperson Women'S Hats Relationship Specialty Start Date End Date Valencia Adhikari APRN [address] [place] [address] PCP - General 04/21/14 07/04/23 documented as of this encounter
--- OUTSIDE RECORDS SUMMARY | 2023-10-31 03:21 | XMS_ITS | Encounter Summary ---
Author Organization [facility] Address [facility] [place] [address] Care Team Providers Care Mechanical Engineering Lecturer Name Role Phone Valencia Adhikari APRN Primary Care Provider +1 [phone] Reason for Visit * Consultation (Routine) - Closed Specialty Diagnoses / Procedures Referred By Lamont riggins Referred To Contact Neurology Diagnoses BILATERAL HAND PARESTHESIA Procedures Evaluate and Treat StressJoceline cardoza APRN [address] [place] [address] [facility] [address] [place] [phone] Referral ID Status Reason Start Date Expiration Date V isits Requested Visits Authorized [id number] Closed Consult, Test & Treat [facility] 11/20/2016 11/20/2017 1 1 Encounter Details Date Type Department Care Team (Latest Contact Info) Description 12/01/2016 10:00 AM EDT Procedure [place] [phone] Isaac Osorio MD [facility] [place] [address] Paresthesias in left hand; Paresthesias [...] is a single mother and lives in [place], [place]. She denies any neck pain. She [...] 11/08/2023 1:45 PM EDT Appointment Ultrasound at [place] [phone] Kelsea Shafer MD [facility] [place] [address] 11/08/2023 3:00 PM EDT Routine Obstetrics and Gynecology at [place] [phone] Ab, Lexii C, CNM [facility] [place] [address] 05/23/2024 Hospital Encounter Birthing [place] [phone] Maite Malloy MD [facility] [place] [address] documented as of this encounter Visit Diagnoses Diagnosis Paresthesias in left hand Disturbance of skin sensation Paresthesias in right hand Disturbance of skin sensation documented in this encounter Care Teams Mechanical Engineering Lecturer Relationship Specialty Start Date End Date Valencia Adhikari APRN [address] [place] [address] PCP - General 04/21/14 07/04/23 documented as of this encounter
--- OUTSIDE RECORDS SUMMARY | 2023-10-31 03:21 | XMS_ITS | Encounter Summary ---
Author Organization [facility] Address [facility] [place] [address] Care Team Providers Care Donor Services Team Leader Name Role Phone Valencia Adhikari APRN Primary Care Provider +1 [phone] Reason for Visit * Reason Comments Left Shoulder Pain DOI 09/06/16 * Consultation (Routine) - Closed Specialty Diagnoses / Procedures Referred By Contwillow t Referred To Contact Orthopaedics Diagnoses left shoulder pain Valencia Adhikari APRN [address] [place] [address] [facility] [address] [place] [phone] Referral ID Status Reason Start Date Expiration Date V isits Requested Visits Authorized [id number] Closed Consult, Test & Treat Connection [facility] 01/17/2017 01/17/2018 1 1 Encounter Details Date Type Department Care Team (Late st Contact Info) Description 02/06/2017 9:00 AM EDT Office [place] [phone] Kedar Santos MD [facility] [place] [address] Left shoulder pain, unspecified chronicity [...] complaint. HPI: The patient is a 26-year-old [id number] female who comes in today complaining of [...] dementia carefacility. Pain is not relieved by [id number] anti- inflammatory medications. No other prior injuries. [...] MONITORING, SETUP performed by JUAN ESPARZA at [facility] OR ??? PRO THYROIDECTOMY, NYDIA, LTD NECK SURG 03/22/2011 THYROIDECTOMY, FOR MALIGNANCY, LIMITED NECK DISSECTION performed by JUAN ESPARZA at [facility] OR ??? TONSILLECTOMY 2010 ??? UPPER GASTROINTESTINAL ENDOSCOPY for IBS, celiac excluded ??? WISDOM TOOTH EXTRACTION Medications were reviewed with the patient today and are up to date. Family History: Negative for bleeding problems, blood clotting disorders, or problems with anesthesia. Social History: Denies tobacco use, denies alcohol use except occasionally. 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 Imaging studies: MRI [...] Kedar Santos MD [facility] Pager: [phone] documented in this encounter Plan of Treatment Upcoming Encounters Date Type Department Care Team (Late st Contact Info) Description 11/08/2023 1:45 PM EDT [place] [address] Kelsea Shafer MD [facility] OBSTETRICS [place] [address] 11/08/2023 3:00 PM EDT Routine Obstetrics [place] [phone] Sally Berger [place] [id number] 05/23/2024 Hospital Encounter Birthing [facility] [place] [address] Maite Malloy MD [facility] DR OBSTETRICS [place] [address] documented as of this encounter Results * [...] pre- procedural time-out was performed as per [facility] protocol. The patient was placed supine on [...] glenohumeral joint space. 2. ??PAIN SCORE: ??Before: 9-/10 ??After: 9-01/23 3. Fluoroscopy time: 0.10 minutes 4. Medications: [...] A pre- proceduraltime-out was performed as per [facility] protocol. The patient was placed supine on [...] by Sally Joya APRN Kedar Santos MD IM FLUORO ORDERABLE S * US Guided Tendon [...] pre- procedural time-out was performed as per [facility] protocol. The patient was placed supine on [...] pre- procedural time-out was performed as per [facility] protocol. The patient was placed supine on [...] I performed this procedure. Kedar Santos MD [facility] PROC ORDERABL ES documented in this encounter Visit Diagnoses Diagnosis Left shoulder pain, unspecified chronicity Left shoulder pain, unspecified chronicity documented in this encounter Care Teams Donor Services Team Leader Relationship Specialty Start Date End Date Valencia Adhikari APRN [address] [place] [address] PCP - General 04/21/14 07/04/23 documented as of this encounter
--- OUTSIDE RECORDS SUMMARY | 2023-10-31 03:21 | XMS_ITS | Encounter Summary ---
Author Organization [facility] Address [facility] [place] [address] Care Team Providers Care Poultry Cutter Name Role Phone OnofreMarilynValencia Oralia SLADE Primary Care Provider +1 [phone] Encounter Details Date Type Department Care Team (Late st Contact Info) Description 08/24/2017 Orders Only Psychiatry [place] [address] Argelia Mccray APRN [facility] [address] Depression, unspecified depression type Social History Tobacco [...] 11/08/2023 1:45 PM EDT [place] [address] Kelsea Shafer MD [facility] OBSTETRICS AND GYNECOLOGY [place], [place] [address] 11/08/2023 3:00 PM EDT Routine Obstetrics [place] [address] Ab, Lexii Khan CNM [facility] [place] [address] 05/23/2024 [place] [address] Maite Malloy MD [facility] OBSTETRICS [place] [address] documented as of this encounter Visit Diagnoses Diagnosis Depression, unspecified depression type documented in this encounter Care Teams Poultry Cutter Relationship Specialty Start Date End Date Valencia Adhikari APRN [address] [place] [address] PCP - General 04/21/14 07/04/23 documented as of this encounter
--- OUTSIDE RECORDS SUMMARY | 2023-10-31 03:21 | XMS_ITS | Encounter Summary ---
[place] [address] Care Team Providers Care Plate Conditioner Name Role Phone Valencia Adhikari APRN Primary Care Provider +1 [phone] Reason for Referral * Surgical (Routine) - Specialty Diagnoses / Procedures Referred By Contac t Referred To Contact Diagnoses Chronic left shoulder pain Procedures Injection tendon or ligament Kiah Alvarez V [facility] [place] [address] Referral ID Status Reason Start Date Expiration Date V isits Requested Visits Authorized [id number] Consult, Test & Treat 07/05/2017 07/05/2018 1 1 * Surgical (Routine) - Specialty Diagnoses / Procedures Referred By Contac t Referred To Contact Diagnoses Biceps tendinitis, left Procedures Bursa Inject - Major (Shoulder,hip,knee) Kiah Alvarez V [facility] [place] [address] Referral ID Status Reason Start Date Expiration Date V isits Requested Visits Authorized [id number] Consult, Test & Treat 07/05/2017 07/05/2018 1 [...] 1 Valencia Adhikari APRN [address] [place] [address] Kiah Alvarez V [facility] [place] [address] Referral ID Status Reason Start Date Expiration Date V isits Requested Visits Authorized [id number] 07/05/2017 07/05/2018 1 1 Encounter Details Date Type Department Care Team (Latest Contact Info) Description 07/05/2017 8:30 AM EDT Procedure [place] [address] Kiah Alvarez V [facility] [place] [address] Chronic left shoulder pain; Biceps tendinitis, left [...] No 2. Patient states they have a route sales delivery driver to transport after procedure? Yes 3. Patient [...] SETUP performed by JUAN ESPARZA at [facility] MA[facility] OR ??? PRO THYROIDECTOMY, IVA [place] NECK SURG 03/22/2011 THYROIDECTOMY, FOR MALIGNANCY, LIMITED NECK DISSECTION performed by JUAN ESPARZA at [facility] MAIN OR ??? TONSILLECTOMY 2010 ??? 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 Smoking status: [...] any questions. Sincerely, KIAH ALVAREZ DO, MPH Kerrick Kleaner Operator of Anesthesiology/[employer] [facility] Pharmacists, Pain Medicine Fellowship ABPM&R - Subspecialty board [...] CC: Valencia Adhikari APRN [address] [place] [address] documented in this encounter Procedure Notes * [...] the entire procedure. KIAH ALVAREZ DO, MPH Kerrick Kleaner Operator of Anesthesiology/[employer] [facility] Pharmacists, Pain Medicine Fellowship ABPM&R - Subspecialty board certification in Pain Medicine CC: Valencia Adhikari APRN [address] [place] [address] documented in this encounter Plan of Treatment Upcoming Encounters Date Type Department Care Team (Late st Contact Info) Description 11/08/2023 1:45 PM EDT Appointment Ultrasound at [place] [phone] Kelsea Shafer MD [facility] [place] [address] 11/08/2023 3:00 PM EDT Routine Obstetrics [place] [address] Ab, Lexii Khan CNM [facility] [place] [address] 05/23/2024 Hospital Encounter Birthing [place] [phone] Maite Malloy MD [facility] OBSTETRICS AND GYNECOLOGY [place], [place] [phone] Scheduled Orders Name Type Priority Associated Diagnoses Orde r Schedule Injection tendon or ligament Procedures Routine Chronic left shoulder pain Ordered: 07/05/2017 documented as of this encounter Procedures Procedure Name Priority Date/Time Associated Diagnosis Comments ARTHROCENTESIS,DRAI N/INJECT JOINT/BURSA Routine 07/05/2017 10:07 AM EDT Biceps tendinitis, left documented in this encounter Results * Bursa Inject - Major (Shoulder,hip,knee) (07/05/2017 10:07 AM EDT) Narrative Kiah Alvarez V, DO - 07/05/2017 10:07 AM EDT Kiah Alvarez V, DO ? 07/05/2017 10:07 AM ULTRASOUND-GUIDED left [...] up plans and appointments were discussed with WallisYasir. ??Post procedure instruction was given. ?? Having met discharge criteria she was [facility]. I was the attending physician supervising the resident in the above care and I was present with the resident for the entire procedure. KIAH ALVAREZ DO, MPH Kerrick Kleaner Operator of Anesthesiology/[employer] [facility] Pharmacists, Pain Medicine Fellowship ABPM&R - Subspecialty board certification in Pain Medicine CC: Valencia Adhikari APRN [address] [place] [address] Kiah Jimenez DO PROCEDURE/MINOR SURG ICAL ORDERABLES [...] mg, Intra-Lesional, ONCE, 1 dose, On Sherrie 07/05/17 at 1030, Routine Given 07/05/2017 10:30 AM EDT 40 mg documented in this encounter Care Teams Plate Conditioner Relationship Specialty Start Date End Date Valencia Adhikari APRN [address] [place] [address] PCP - General 04/21/14 07/04/23 documented as of this encounter
--- OUTSIDE RECORDS SUMMARY | 2023-10-31 03:21 | XMS_ITS | Encounter Summary ---
Author Organization [facility] [place] [address] Care Team Providers Care Tnt Line Supervisor Name Role Phone OnofreMarilynValenciaadan Barton APRN Primary Care Provider [phone] [phone] Reason for Visit * Reason Onset Date Comments Medication Refill 09/13/2017 Encounter Details Date Type Department Care Team (Late st Contact Info) Description 09/13/2017 Refill Psychiatry [place] [address] Argelia Mccray APRN [facility] [place] [address] Depression, unspecified depression type Social History Tobacco [...] 11/08/2023 1:45 PM EDT [place] [address] Kelsea Shafer MD [facility] OBSTETRICS [place] [address] 11/08/2023 3:00 PM EDT Routine Obstetrics [place] [address] Lexii Berger, JAYNEM [facility] [place] [address] 05/23/2024 Hospital [place] [address] Maite Malloy MD [facility] OBSTETRICS [place] [address] documented as of this encounter Visit Diagnoses Diagnosis Depression, unspecified depression type documented in this encounter Care Teams Tnt Line Supervisor Relationship Specialty Start Date End Date Valencia Adhikari APRN [address] [place] [address] PCP - General 04/21/14 07/04/23 documented as of this encounter
--- OUTSIDE RECORDS SUMMARY | 2023-10-31 03:21 | XMS_ITS | Encounter Summary ---
Author Organization [facility] Address [facility] [place] [address] Care Team Providers Care Sdc Teacher Name Role Phone OnofreMarilynValenciaadan Barton APRN Primary Care Provider +1 [phone] Encounter Details Date Type Department Care Team (Late st Contact Info) Description 08/09/2017 Telephone Psychiatry [place] [address] Argelia Mccray APRN [facility] [place] [address] Social History Tobacco Use Types Packs/Day Years [...] 11/08/2023 1:45 PM EDT [place] [address] Kelsea Shafer MD [facility] OBSTETRICS [place] [address] 11/08/2023 3:00 PM EDT Routine Obstetrics [place] [address] Ab, Lexii Khan CNM [facility] [place] [address] 05/23/2024 Hospital [place] [address] Maite Malloy MD [facility] OBSTETRICS [place] [address] documented as of this encounter Visit Diagnoses Not on filedocumented in this encounter Care Teams Sdc Teacher Relationship Specialty Start Date End Date Valencia Adhikari APRN [address] [place] [address] PCP - General 04/21/14 07/04/23 documented as of this encounter
--- OUTSIDE RECORDS SUMMARY | 2023-10-31 03:21 | XMS_ITS | Encounter Summary ---
Author Organization [facility] Address [facility] [place] [address] Care Team Providers Care Tailing Machine Operator Name Role Phone OnofreValencia pitts [place] Primary Care Provider +1 [phone] Encounter Details Date Type Department Care Team (Late st Contact Info) Description 12/01/2016 External [place] [phone] Isaac Osorio MD [facility] [place] [address] Social History Tobacco Use Types Packs/Day Years [...] 11/08/2023 1:45 PM EDT Appointment [place] [address] Kelsea Shafer MD [facility] OBSTETRICS [place] [address] 11/08/2023 3:00 PM EDT Routine Obstetrics [place] [address] Ab, Lexii Khan, RAY [facility] [place] [address] 05/23/2024 Hospital [place] [address] Maite Malloy MD [facility] OBSTETRICS [place] [address] documented as of this encounter Procedures Procedure Name Priority Date/Time Associated Diagnosis Comments EMG SCAN Routine 12/01/2016 documented in this encounter Results * Scan Doc: EMG (12/01/2016) Isaac Osorio MD MEDIA MGR SCAN EXT O RDR/RSLT documented in this encounter Visit Diagnoses Not on filedocumented in this encounter Care Teams Tailing Machine Operator Relationship Specialty Start Date End Date Valencia Adhikari APRN [address] [place] [address] PCP - General 04/21/14 07/04/23 documented as of this encounter
--- OUTSIDE RECORDS SUMMARY | 2023-10-31 03:21 | XMS_ITS | Encounter Summary ---
Author Organization [facility] [place] [address] Care Team Providers Care Appeals Referee Name Role Phone Valencia Adhikari APRN Primary Care Provider +1 [phone] Encounter Details Date Type Department Care Team (Latest Contact Info) Description 10/23/2016 - 10/23/2016 11:59 PM EDT Hospital Encounter [place] [phone] Kedar Santos MD [facility] [place] [address] Discharge Disposition: Home Social History Tobacco Use [...] PM EDT Appointment Ultrasound at [place] [phone] Kelsea Shafer MD [facility] OBSTETRICS [place] [address] 11/08/2023 3:00 PM EDT Routine Obstetrics [place] [address] Ab, Lexii Khan CNM [facility] [place] [address] 05/23/2024 Hospital [place] [address] Maite Malloy MD [facility] OBSTETRICS [place] [address] documented as of this encounter Procedures Procedure Name Priority Date/Time Associated Diagnosis Comments FILM LIBRARY STORAGE ONLY MR SHOULDER Routine 10/23/2016 12:00 AM EDT documented in this encounter Results * Film Library- Storage Only MR Shoulder (10/23/2016 12:00 AM EDT) Narrative RUDY - 05/17/2017 11:16 AM EST This exam is for storage only and is auto-finalizing. Kedar Santos MD IMG FILM LIBRARY ORD ERABLES [place] documented in this encounter Visit Diagnoses Not on filedocumented in this encounter Care Teams Appeals Referee Relationship Specialty Start Date End Date Valencia Adhikari APRN [address] [place] [address] PCP - General 04/21/14 07/04/23 documented as of this encounter
--- OUTSIDE RECORDS SUMMARY | 2023-10-31 03:21 | XMS_ITS | Encounter Summary ---
Author Organization [facility] Address [facility] [place] [address] Care Team Providers Care Electric Fork Operator Name Role Phone OnofreMarilynValencia Oralia SLADE Primary Care Provider [phone] [phone] Encounter Details Date Type Department Care Team (Late st Contact Info) Description 09/05/2017 Orders Only Psychiatry [place] [address] Argelia Mccray APRN [facility] [address] Depression, unspecified depression type Social History Tobacco [...] 11/08/2023 1:45 PM EDT [place] [address] Kelsea Shafer MD [facility] OBSTETRICS AND GYNECOLOGY [place], [place] [phone] 11/08/2023 3:00 PM EDT Routine Obstetrics [place] [address] Ab, Lexii Khan CNM [facility] [place] [address] 05/23/2024 Hospital [place] [address] Maite Malloy MD [facility] OBSTETRICS [place] [address] documented as of this encounter Visit Diagnoses Diagnosis Depression, unspecified depression type documented in this encounter Care Teams Electric Fork Operator Relationship Specialty Start Date End Date Valencia Adhikari APRN [address] [place] [address] PCP - General 04/21/14 07/04/23 documented as of this encounter
--- OUTSIDE RECORDS SUMMARY | 2023-10-31 03:21 | XMS_ITS | Encounter Summary ---
Author Organization [facility] Address [facility] [place] [address] Care Team Providers Care Cracking Machine Operator Name Role Phone Valencia Adhikari APRN Primary Care Provider [phone] [phone] Reason for Visit * Reason Comments Depression Anxiety * Consultation (Routine) - Closed Specialty Diagnoses / Procedures Referred By Contwillow t Referred To Contact Psychiatry Diagnoses Anxiety, depression StressJoceline cardoza APRN [address] [place] [address] [facility] [place] [address] Referral ID Status Reason Start Date Expiration Date V isits Requested Visits Authorized [id number] Closed Consult, Test & Treat [facility] 05/29/2017 05/29/2018 1 1 Encounter Details Date Type Department Care Team (Late st Contact Info) Description 07/26/2017 10:00 AM EDT Office Visit Psychiatry [place] [address] Argelia Mccray APRN [facility] [place] [address] CHARISSE (generalized anxiety disorder); Major [...] most of the time Pain impact Moderately [place] calm A little of the time Lot of energy Some of the time [place] downhearted Most of the time Social Impact [...] milestones Social History: 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 [...] 11/08/2023 1:45 PM EDT [place] [phone] Kelsea Shafer MD [facility] OBSTETRICS AND GYNECOLOGY [place], [place] [id number] 11/08/2023 3:00 PM EDT Routine Obstetrics [place] [address] Lexii Berger CNM [facility] [place] [address] 05/23/2024 Hospital Encounter Birthing [facility] [place] [address] Maite Malloy MD [facility] OBSTETRICS [place] [address] documented as of this encounter Visit Diagnoses Diagnosis CHARISSE (generalized anxiety disorder) Generalized anxiety disorder Major depressive disorder, recurrent episode, moderate Bipolar affective disorder, remission status unspecified documented in this encounter Care Teams Cracking Machine Operator Relationship Specialty Start Date End Date Valencia Adhikari APRN [address] [place] [address] PCP - General 04/21/14 07/04/23 documented as of this encounter
--- OUTSIDE RECORDS SUMMARY | 2023-10-31 03:22 | XMS_ITS | Encounter Summary ---
Author Organization [facility] [place] [address] Care Team Providers Care Cath Lab Radiological Technologist Name Role Phone None Primary Care Provider Unavailabl e Encounter Details Date Type Department Care Team (Late st Contact Info) Description 12/20/2012 External [place] [address] Griffin Wallis III, MD [facility] DR ENDOCRINOLOGY DEPT. [place], [place] [id number] Hypothyroidism Social History Tobacco Use Types Packs/Day [...] 11/08/2023 1:45 PM EDT [place] [address] Kelsea Shafer MD [facility] DR OBSTET[place] [address] 11/08/2023 3:00 PM EDT Routine Obstetrics [place] [address] Ab, Lexii Khan, RAY [facility] [place] [address] 05/23/2024 Hospital Encounter [place] [address] Maite Malloy MD [facility] OBST[place] [address] documented as of this encounter Procedures Procedure Name Priority Date/Time Associated Diagnosis Comments TSH Routine 12/12/2012 Hypothyroidism documented in this encounter Results * (ABNORMAL) TSH (12/12/2012) TSH 0.15(LAND ACQUISITION SPECIALIST AL/ABN) Blood specimen (specimen) Griffin Wallis III, MD CHEMISTRY ORDER AMANDA documented in this encounter Visit Diagnoses Diagnosis Hypothyroidism Unspecified hypothyroidism documented in this encounter Care Teams Cath Lab Radiological Technologist Relationship Specialty Start Date End Date None None PCP - General 05/08/12 04/20/14 documented as of this encounter
--- OUTSIDE RECORDS SUMMARY | 2023-10-31 03:22 | XMS_ITS | Encounter Summary ---
Author Organization [facility] Address [facility] [place] [address] Care Team Providers Care Case Technician Name Role Phone Valencia Adhikari APRN Primary Care Provider [phone] [phone] Reason for Visit * Reason Comments Left Knee Pain Encounter Details Date Type Department Care Team (Late st Contact Info) Description 04/21/2014 1:30 PM EST Office [place] [address] Joshua Padron MD [facility] [place] [address] Alysa Lauren MD [facility] [place] [address] Left knee pain Discharge Disposition: Home Social [...] her leg. She was eventually seen at [facility] where she had x-rays and they were [...] PM EDT Appointment Ultrasound at [place] [phone] Kelsea Shafer MD [facility] OBSTETRICS [place] [address] 11/08/2023 3:00 PM EDT Routine Obstetrics [place] [address] Ab, Lexii Kahn, [facility] [place] [address] 05/23/2024 Hospital Encounter Birthing [place] [phone] Maite Malloy MD [facility] OBSTETRICS [place] [address] documented as of this encounter Visit Diagnoses Diagnosis Left knee pain Pain in joint, lower leg documented in this encounter Care Teams Case Technician Relationship Specialty Start Date End Date Valencia Adhikari APRN [address] [place] [address] PCP - General 04/21/14 07/04/23 documented as of this encounter
--- OUTSIDE RECORDS SUMMARY | 2023-10-31 03:22 | XMS_ITS | Encounter Summary ---
Author Organization [facility] [place] [address] Care Team Providers Care Preschool Teacher Assistant Name Role Phone Valencia Adhikari APRN Primary Care Provider +1 [phone] Reason for Visit * Reason Comments Follow-up IUD consult, inserti on Encounter Details Date Type Department Care Team (Late st Contact Info) Description 03/14/2016 10:00 AM EST Office Visit Obstetrics [place] [address] Pam Chaidez APRN [facility] OBSTETRICS & [place] [address] Encounter for IUD insertion (Primary Dx); IUD [...] this encounter Progress Notes * Pam Chaidez, APPOINTMENT MANAGER - 03/14/2016 10:00 AM EST REASON FOR [...] NECK DISSECTION performed by JUAN ESPARZA at [facility] MAIN OR ??? Prg somatosensory test, any/all per. nerves, trunk or head 03/22/2011 FACIAL NERVE MONITORING, SETUP performed by JUAN ESPARZA at [facility] MAIN OR ??? Byron tooth extraction ??? Upper gastrointestinal endoscopy for [...] checks. Use back-up method x 1 week. Sorcha encouraged to return to the clinic for [...] 11/08/2023 1:45 PM EDT [place] [address] Kelsea Shafer MD [facility] OBSTETRICS [place] [address] 11/08/2023 3:00 PM EDT Routine Obstetrics [place] [address] Ab, Lexii Khan CNM [facility] [place] [address] 05/23/2024 Hospital [place] [address] Maite Malloy MD [facility] DR OBSTETRICS [place] [address] Scheduled Orders Name Type Priority Associated Diagnoses [...] AM EST) GC Gene Amp Negative Negative [facility] Comment: The only FDA approved specimen types for this assay are cervix, vagina, urethra and urine. GC Source Urine [facility] Chlamydia Gene Amp Negative Negative [facility] Comment: The only FDA approved specimen types for this assay are cervix, vagina, urethra and urine. Chlamydia Source Urine [facility] Urine specimen (specimen) 03/14/2016 10:38 AM EST 03/14/2016 12:09 PM EST Narrative Resulting Agency Comment Spec In Lab Richard Faust MD MICROBIOLOGY - GENER AL ORDERABLES [facility] [place] [address] documented in this encounter Visit Diagnoses Diagnosis [...] section) documented in this encounter Care Teams Preschool Teacher Assistant Relationship Specialty Start Date End Date Valencia Adhikari, [place] [address] [place] [address] PCP - General 04/21/14 07/04/23 documented as of this encounter
--- OUTSIDE RECORDS SUMMARY | 2023-10-31 03:22 | XMS_ITS | Encounter Summary ---
Author Organization Replaced By [facility] Address [facility] [place] [address] Care Team Providers Care Follow Up Manager Name Role Phone None Primary Care Provider Unavailabl e Encounter Details Date Type Department Care Team (Latest Contact Info) Description 09/15/2012 10:09 AM EDT - 09/15/2012 11:59 PM EDT Hospital [place] [address] Griffin [place] MD [facility] PEDIATRICS/NEONA [place] [address] Discharge Disposition: Home Social History Tobacco Use [...] PM EDT Appointment Ultrasound at [place] [phone] Kelsea Shafer MD [facility] OBSTETRICS AND [place] [address] 11/08/2023 3:00 PM EDT Routine Obstetrics [place] [address] Lexii Berger CNM [facility] [place] [address] 05/23/2024 Hospital [place] [address] Maite Malloy MD [facility] OBSTETRICS AND [place] [address] documented as of this encounter Procedures Procedure Name Priority Date/Time Associated Diagnosis Comments SURGICAL PATHOLOGY REPORT Routine 09/15/2012 10:31 AM EDT documented in this encounter Results * Surgical Pathology Report (09/15/2012 10:31 AM EDT) Surgical Pathology Report ? [facility] ? Provider: ?? GRIFFIN ALLEN ??Pt. Name: ?? ANDREE HUMMEL ? E ? Acc #: ?[id number] ?Pt. ? Col Date: ?? 09/15/2012 ?/Sex: [...] Description: Intact discoid, locke placenta. ?Membranes: ? Schriever and semitransparent with 100 percent marginal ? [...] born at home. ??Respiratory distress, hypotonia. ? [facility] ? Provider: ?? GRIFFIN ALLEN ??Pt. Name: ?? ANDREE HUMMEL ? E ? Acc #: ?[id number] ?Pt. ? Col Date: ?? 09/15/2012 ?/Sex: ?1990,(22 years),Female ? Rec Date: ?? 09/16/2012 ?LOC: ?OPW ? SURGICAL PATHOLOGY ? Clinical Diagnosis: ? Same CERNER MILLENNIUM 09/15/2012 10:3 1 AM EDT Griffin [place] MD PATHOLOGY/CYTOLOGY ORDERABLES HANNAH SERRANO documented in this encounter Visit Diagnoses Not on filedocumented in this encounter Care Teams Follow Up Manager Relationship Specialty Start Date End Date None None PCP - General 05/08/12 04/20/14 documented as of this encounter
--- OUTSIDE RECORDS SUMMARY | 2023-10-31 03:22 | XMS_ITS | Encounter Summary ---
Author Organization [facility] Address [facility] [place] [address] Care Team Providers Care Plastic Panel Installer Name Role Phone Valencia Adhikari APRN Primary Care Provider [phone] [phone] Reason for Visit * Reason Comments Left Knee Pain Encounter Details Date Type Department Care Team (Late st Contact Info) Description 05/05/2014 2:30 PM EST Office [place] [address] Joshua Padron MD [facility] DR ORTHOPAEDIC [place] [address] Left knee pain Discharge Disposition: Home Social [...] 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 We will see her back only if needed. documented in this encounter Plan of Treatment Upcoming Encounters Date Type Department Care Team (Late st Contact Info) Description 11/08/2023 1:45 PM EDT [place] [address] Kelsea Shafer MD [facility] OBSTETRICS AND [place] [address] 11/08/2023 3:00 PM EDT Routine Obstetrics [place] [address] Ab, Lexii Khan, CNM [facility] [id number] 05/23/2024 Hospital [place] [address] Maite Malloy MD [facility] OBSTETRICS AND [place] [address] documented as of this encounter Visit Diagnoses Diagnosis Left knee pain Pain in joint, lower leg documented in this encounter Care Teams Plastic Panel Installer Relationship Specialty Start Date End Date Valencia Adhikari APRN [address] [place] [address] PCP - General 04/21/14 07/04/23 documented as of this encounter
--- OUTSIDE RECORDS SUMMARY | 2023-10-31 03:22 | XMS_ITS | Encounter Summary ---
Author Organization [facility] Address [facility] [place] [address] Care Team Providers Care Mechanical Systems Designer Name Role Phone None Primary Care Provider Unavailabl e Encounter Details Date Type Department Care Team (Late st Contact Info) Description 04/15/2014 Orders Only [place] [address] Joshua Padron MD [facility] [place] [address] Social History Tobacco Use Types Packs/Day Years [...] 11/08/2023 1:45 PM EDT Appointment [place] [address] Kelsea Shafer MD [facility] DR OBSTET[place]ICS [place] [address] 11/08/2023 3:00 PM EDT Routine Obstetrics [place] [address] Ab, Lexii C, CNM [facility] [place] [address] 05/23/2024 Hospital Encounter Birthing [facility] [place] [address] Maite Malloy MD [facility] OBSTETRICS [place] [address] documented as of this encounter Procedures Procedure [...] is a Non-reportable exam Joshua Padron MD [facility] FILM LIBRARY ORD ERABLES documented in this encounter Visit Diagnoses Not on filedocumented in this encounter Care Teams Mechanical Systems Designer Relationship Specialty Start Date End Date None None PCP - General 05/08/12 04/20/14 documented as of this encounter
--- OUTSIDE RECORDS SUMMARY | 2023-10-31 03:22 | XMS_ITS | Encounter Summary ---
Author Organization [facility] Address [facility] [place] [address] Care Team Providers Care Puffer Tender Name Role Phone None Primary Care Provider Unavailabl e Reason for Visit * Reason Comments Routine Visit Encounter Details Date Type Department Care Team (Late st Contact Info) Description 09/12/2012 11:00 AM EDT Routine Obstetrics [place] [address] Lalita Carmona MD [facility] DR OBSTETRICS & [place] [address] Mely Mccord MD [facility] DR OBSTETRICS [place] [address] GA: [id number] Discharge Disposition: Home Social History [...] 11/08/2023 1:45 PM EDT Appointment Ultrasound at [place] [phone] Kelsea Shafer MD [facility] OBSTETRICS [place] [address] 11/08/2023 3:00 PM EDT Routine Obstetrics [place] [address] Ab, Lexii Khan, CNJose A [facility] [place] [address] 05/23/2024 Hospital Encounter Birthing [place] [phone] Maite Malloy MD [facility] OBSTETRICS [place] [address] documented as of this encounter Visit Diagnoses Diagnosis Unspecified high-risk - Primary documented in this encounter Care Teams Puffer Tender Relationship Specialty Start Date End Date None None PCP - General 05/08/12 04/20/14 documented as of this encounter
--- OUTSIDE RECORDS SUMMARY | 2023-10-31 03:22 | XMS_ITS | Encounter Summary ---
Author Organization [facility] [place] [address] Care Team Providers Care Generator Switchboard Operator Name Role Phone None Primary Care Provider Unavailabl e Reason for Visit * Reason Onset Date Comments Labs Only 11/14/2012 Encounter Details Date Type Department Care Team (Late st Contact Info) Description 11/14/[address] [place] [place] [address] Omayra Meredith LPN Labs Only Social History [...] to have lab order to go to [facility]. TSH order electronically faxed. Patient told that if when she arrives at lab order is not they should not leave but ask lab to call us. Patient agrees with plan of care. documented in this encounter Plan of Treatment Upcoming Encounters Date Type Department Care Team (Late st Contact Info) Description 11/08/2023 1:45 PM EDT Appointment Ultrasound at [place] [phone] Kelsea Shafer MD [facility] OBSTETRICS [place] [address] 11/08/2023 3:00 PM EDT Routine Obstetrics [place] [address] Ab, Lexii C, CNM [facility] [place] [address] 05/23/2024 Hospital Encounter Birthing [place] [phone] Maite Malloy MD [facility] [place]STET[place] [address] documented as of this encounter Results * (ABNORMAL) TSH (12/12/2012) TSH 0.15(MACHINE HEEL BUILDER AL/ABN) Blood specimen (specimen) Griffin Wallis III, MD CHEMISTRY ORDER AMANDA documented in this encounter Visit Diagnoses Diagnosis Hypothyroidism- Primary Unspecified hypothyroidism documented in this encounter Care Teams Generator Switchboard Operator Relationship Specialty Start Date End Date None None PCP - General 05/08/12 04/20/14 documented as of this encounter
--- OUTSIDE RECORDS SUMMARY | 2023-10-31 03:22 | XMS_ITS | Encounter Summary ---
Author Organization [facility] Address [facility] [place] [address] Care Team Providers Care Flag Football Coach Name Role Phone None Primary Care Provider Unavailabl e Reason for Visit * Reason Comments Routine Visit Encounter Details Date Type Department Care Team (Latest Contact Info) Description 09/02/2012 9:15 AM EDT Routine Obstetrics [place] [address] Myles Shipman MD [facility] DR OBSTETRICS & [place] [address] GA: 29w6d Discharge Disposition: Home Social History [...] 1:45 PM EDT Appointment [place] [phone] Kelsea Shafer MD [facility] OBSTETRICS [place] [address] 11/08/2023 3:00 PM EDT Routine Obstetrics [place] [address] Ab, Lexii Khan CNM [facility] [address] [place] [id number] 05/23/2024 Hospital [place] [address] Maite Malloy MD [facility] OBSTETRICS [place] [address] documented as of this encounter Procedures Procedure Name Priority Date/Time Associated Diagnosis Comments TSH Routine 09/02/2012 10:04 AM EDT Hypothyroidism, postsurgical documented in this encounter Results * (ABNORMAL) TSH (09/02/2012 10:04 AM EDT) TSH 34.90(H) 0.27 - 4.20 mcIU/mL CERNER MILLENNIUM Blood specimen (specimen) 09/02/2012 10:04 AM EDT 09/02/2012 10:13 AM EDT Narrative Resulting Agency Comment Spec In Lab Myles Shipman MD [facility] documented in this encounter Visit Diagnoses Diagnosis , supervision of, high-risk- Primary Unspecified high-risk Hypothyroidism, postsurgical Postsurgical hypothyroidism Migraine Migraine, unspecified, without mention of intractable migraine without mention of status migrainosus documented in this encounter Care Teams Flag Football Coach Relationship Specialty Start Date End Date None None PCP - General 05/08/12 04/20/14 documented as of this encounter
--- OUTSIDE RECORDS SUMMARY | 2023-10-31 03:22 | XMS_ITS | Encounter Summary ---
Author Organization [facility] Address [facility] [place] [address] Care Team Providers Care Offender Job Retention Specialist Name Role Phone None Primary Care Provider Unavailabl e Reason for Visit * Reason Comments Abdominal Pain abd pain and back pa in worse today Encounter Details Date Type Department Care Team (Latest Contact Info) Description 09/08/2012 3:03 PM EDT - 09/08/2012 6:56 PM EDT Hospital Encounter [place]thing [place] [address] Katelynn Lawton MD [facility] OBSTETRICS & [place] [address] Discharge Disposition: Home Social History Tobacco Use [...] Lawton MD - 09/08/2012 4:01 PM EDT [facility] Triage Visit Name: Andree Hummel MR#: [id number] Date of Visit: 09/08/2012 Time: 4:01 PM CC: back pain and pelvic pressure HPI: Andree is a 22 y.o. y with Estimated Date of Delivery: 11/12/12 at 30w5d gestation complaining of back pain. Of note, she was admitted to [facility] with contractions. During that admission her cervix [...] by mouth nightly. 30 tablet 2 ??? lqwisfzbnl-neodbjahrvsme-iohxqlsk (FIORICET, ESGIC) per tablet Take 1 tablet [...] Present Decelerations: occasional variable decels. Variability: Moderate [place]: contractions every 1-4 minutes irregular. Labs: Component [...] continue to assess 1845- Dr. Sin at BS , sve rechecked with no change noted, discharge teaching done and d/c to home with instructions documented in this encounter Plan of Treatment Upcoming Encounters Date Type Department Care Team (Late st Contact Info) Description 11/08/2023 1:45 PM EDT Appointment [place] [address] Kelsea Shafer MD [facility] OBSTETRICS [place] [address] 11/08/2023 3:00 PM EDT Routine Obstetrics and Gynecology at [facility] [place] [phone] Ab, Lexii Khan CNM [facility] [place] [address] 05/23/2024 Hospital Encounter Birthing [facility] [place] [address] Maite Malloy MD [facility] OBSTETRICS AND G[place]ECOLOGY [place], [place] [id number] documented as of this encounter Procedures Procedure [...] Appearance UA Hazy(A) Clear CERNER MILLENNIUM Spec [place] UA 1.009 1.002 - 1.030 CERNER MILLENNIUM [...] Resulting Agency Comment Spec In Lab Katelynn E Jered MD URINE ORDERABLES [facility] documented in this encounter Visit Diagnoses Not on filedocumented in this encounter Care Teams Offender Job Retention Specialist Relationship Specialty Start Date End Date None None PCP - General 05/08/12 04/20/14 documented as of this encounter
--- OUTSIDE RECORDS SUMMARY | 2023-10-31 03:22 | XMS_ITS | Encounter Summary ---
Author Organization [facility] [place] [address] Care Team Providers Care Box Repairer Name Role Phone None Primary Care Provider Unavailrisa e Encounter Details Date Type Department Care Team (Late st Contact Info) Description 04/17/2014 [place] [phone] Taty Browne Social History Tobacco Use Types [...] Name: Andree Hummel : 1990 Phone number: [phone] (home) Mailing address: [place] [address] Age: 23 y.o. Appointment date: TBD Appointment [...] X-rays: Yes - When? Where? Notes: 04/15/[address] [facility] [place] PH: [phone] FAX: [phone] IMG PUSH MRI: No CT Scan: No [...] copy to your next appointment. Advance Directive pilot teacher: New patient with knee pain under age of 56. MyDH Do you have a MyDH account? No - Patient Declined - MOM BOOKED documented in this encounter Plan of Treatment Upcoming Encounters Date Type Department Care Team (Late st Contact Info) Description 11/08/2023 1:45 PM EDT Appointment Ultrasound at [address] Kelsea Shafer MD [facility] OBSTET[place] [address] 11/08/2023 3:00 PM EDT Routine Obstetrics and Gynecology at [place] [phone] Ab, Lexii C, CNM [facility] [place] [address] 05/23/2024 Hospital Encounter Birthing [place] [phone] Maite Malloy MD [facility] OBSTETRICS [place] [address] documented as of this encounter Visit Diagnoses Not on filedocumented in this encounter Care Teams Box Repairer Relationship Specialty Start Date End Date None None PCP - General 05/08/12 04/20/14 documented as of this encounter
--- OUTSIDE RECORDS SUMMARY | 2023-10-31 03:22 | XMS_ITS | Encounter Summary ---
Author Organization [facility] Address [facility] [place] [address] Care Team Providers Care Head Of Music Name Role Phone None Primary Care Provider Unavailabl e Encounter Details Date Type Department Care Team (Latest Contact Info) Description 09/18/2012 10:28 AM EDT - 09/18/2012 10:29 AM EDT Hospital Encounter [place] [address] Myles Shipman MD [facility] DR OBSTETRICS [place] [address] Discharge Disposition: Home Social History Tobacco Use [...] 11/08/2023 1:45 PM EDT Appointment Ultrasound at [place] [phone] Kelsea Shafer MD [facility] OBST[place] [address] 11/08/2023 3:00 PM EDT Routine Obstetrics and Gynecology at [place] [phone] Ab, Lexii Khan, CNM [facility] [place] [address] 05/23/2024 Hospital Encounter Birthing [place] [phone] Maite Malloy MD [facility] [place] [address] documented as of this encounter Visit Diagnoses Not on filedocumented in this encounter Care Teams Head Of Music Relationship Specialty Start Date End Date None None PCP - General 05/08/12 04/20/14 documented as of this encounter
--- OUTSIDE RECORDS SUMMARY | 2023-10-31 03:22 | XMS_ITS | Encounter Summary ---
Author Organization [facility] [place] [address] Care Team Providers Care Sales Representative Gas Service Name Role Phone None Primary Care Provider Unavailabl e Encounter Details Date Type Department Care Team (Latest Contact Info) Description 09/03/2012 7:12 PM EDT - 09/05/2012 10:55 AM EDT [place] [address] Lalita Quan MD [facility] DR OBSTETRICS & [place] [address] Mely Mccord MD [facility] DR OBSTETRICS & [place] [address] Hypothyroidism (Primary Dx); Threatened labor, antepartum Discharge [...] Luke N - 09/05/2012 10:22 AM EDT [facility] to contact [facility] doctor [facility] [place] [address] to contact family doctor Following your visit to [facility] Triage ??N?DL?TL?? Reason for Visit: Provider: GESTATION [...] a vaginal exam in your doctor's or jewel grinder's office you should not bleed as much [...] dehydration Keep your regularly scheduled doctor or jewel grinder appointment NEW MEDICATIONS: SPECIAL INSTRUCTIONS/FOLLOW-UP CARE: documented [...] living with her mother (an RN at [facility]), in [place], [place]. Patient requested information about childbirth classes. Provided flyer for [facility] and offered referral for scholarship. Suggested [...] some friends who can visit, andhas a caregiver services home from [facility]. A: Patient is a 22-year-old single woman, here for pre-term labor in setting of 30 week . Patient has a hx of prior loss. Patient is known to from OB Clinic (see Outpatient Care Management note of 06/12/12). Patient is being discharged to home today. Patient currently living with her mother (an RN at [facility]) in [place], [place]. Patient has support from her mother, friends, and [facility]. Patient with considerable stressors and hx of depression. Has declined medication during this . Patient with hx of substance abuse. (TIFFANIE presumptive + for THC on admission.) P: SW referring patient, at her request, to [facility] for scholarship for childbirth class. 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 Managed by endocrine. Synthroid dose recently decreased from 300mcg QD to 200mcg QD as TSH was 0.03. TSH on 09/02 was 34.90. Discussed with patient's professor of genetics - increased dose to 250 mcg daily. [...] high-risk Team MFM transfer of care from [facility] Delivery plan GBS date & Result [...] UA Latest Range: Clear Hazy (A) Spec Laurel UA Latest Range: 1.002-1.030 1.006 pH UA [...] naive, will start mag for tocolysis vs QUALITY IMPROVEMENT MANAGER PRN progressive labor. Steroid status & Plan: Betamethasone #1 given Diet: clear liquids Ultrasound with cervical length today Consent obtained for CS, possible classical Consultations: none at present Additional Issues: 1. Reported 20 week prior loss 2. 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 Managed by endocrine. 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 Managed by endocrine. Synthroid dose recently decreased [...] DISSECTION performed by JUAN ESPARZA at [facility] ??? Somatosensory test, any/all per. nerves, trunk or head 03/22/2011 FACIAL NERVE MONITORING, SETUP performed by JUAN ESPARZA at [facility] ??? [place] tooth extraction ??? Upper gastrointestinal endoscopy for IBS, celiac excluded ??? Colonoscopy found polyps ??? Tonsillectomy 2010 Prior to Admission Medications Prescriptions prior to admission Medication Sig Dispense Refill ??? hxrdcpotpd-qfotgvwfkpwjs-kevcesly (FIORICET, ESGIC) per tablet Take 1 tablet [...] naive, will start mag for tocolysis vs QUALITY IMPROVEMENT MANAGER PRN progressive labor. ?? 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 Managed by endocrine. Synthroid dose recently decreased [...] Lalita Quan Discharge Summary Antepartum Care Provider: [facility] Referring Provider if applicable: n/a Discharge Diagnoses (Hospital Problems) and Secondary Diagnoses (Chronic Problems): Active Hospital Problems Diagnoses ??? Threatened labor, antepartum ??? , supervision of, high-risk Team [facility] transfer of care from [facility] Delivery plan GBS date & Result [...] care. ??? 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 Managed by endocrine. Synthroid dose recently decreased [...] tablet, R-2, Normal Continued medications, unchanged Details nhpvgyaoge-noeczicceewei-thxmlsyo (FIORICET, ESGIC) per tablet Take 1 tablet [...] DISSECTION performed by JUAN ESPARZA at [facility] ??? Somatosensory test, any/all per. nerves, trunk or head 03/22/2011 FACIAL NERVE MONITORING, SETUP performed by JUAN ESPARZA at [facility] ??? [place] tooth extraction ??? Upper gastrointestinal endoscopy for [...] GCT - due to macrosomia General Instructions [facility] to contact OB doctor [facility] [place] to contact jewel grinder CRYSTAL [place] to contact family doctor Following [facility] Triage ??N?DL?TL?? Reason for Visit: Provider: GESTATION - Less Than 37 Weeks Call your provider if: You are feeling any cramping sensations in your abdomen less than 20 minutes apart 1. Grady-Vazquez Contractions usually are irregular may get less [...] a vaginal exam in your doctor's or jewel grinder's office you should not bleed as much [...] 12. Keep your regularly scheduled doctor or jewel grinder appointment NEW MEDICATIONS: SPECIAL INSTRUCTIONS/FOLLOW-UP CARE: Future Appointments and Orders Future Appointments: Provider: Department: Dept Phone: Center: 09/12/2012 11:00 AM Lalita Quan MD Obstetrics and Gynecology [phone] [facility] 11/28/2012 1:40 PM Yaneth Griffith MD Psychiatry and Behavioral Health [phone] [facility] Joint Appt Questionnaire Five D Res-Psych LEB 5D [phone] [facility] Future Orders Please Complete By Expires Schedule appointment [[id number] Custom] Process Instructions: Scheduling Instructions: Comments: Questions: [...] 11/08/2023 1:45 PM EDT [place] [address] Kelsea Shafer MD [facility] OBSTETRICS [place] [address] 11/08/2023 3:00 PM EDT Routine Obstetrics [place] [address] Ab, Lexii C, CNM [facility] [place] [address] 05/23/2024 Hospital Encounter Birthing [facility] [place] [phone] Maite Malloy MD [facility] OBSTETRICS [place] [address] documented as of this encounter Procedures Procedure Name Priority Date/Time Associated Diagnosis Comments US OB FOLLOW UP Routine 09/04/2012 3:00 PM EDT URINALYSIS WITH REFLEX CULTURE Routine 09/03/2012 10:53 PM EDT URINE CULTURE Routine 09/03/2012 10:46 PM EDT HEPATITIS B SURFACE ANTIGEN Routine 09/03/2012 8:45 PM EDT HIV AB/AG RAPID TEST ([place]) Routine 09/03/2012 7:45 PM EDT SCAN, PERIPHERAL BLOOD Routine 3 7:45 PM EDT DIFFERENTIAL, AUTOMATED Routine 09/03/2012 7:45 PM EDT ABO/RH TYPING Routine 09/03/2012 7:45 PM EDT CBC (WITH DIFF) Routine 09/03/2012 7:45 PM EDT ANTIBODY SCREEN Routine 09/03/2012 7:45 PM EDT TYPE AND SCREEN ([facility]/CARIE) Routine 09/03/2012 7:45 PM EDT GROUP B [...] 09/04/2012 03:08 pm) Patient Info ID: ? [id number] ? : ??[birth year] (22 yrs) Name: ? PREETHI Godoy ?Visit Date: 09/04/2012 02:50 pm ? LOUISE- ? FRANK Performed By Performed By: ?Ana Laura Urban Attending: ? Mathew LIMA, Lalita Diop Referred By: ? CHUCK JANE MD Service(s) Provided UOBFOL - Efw - Growth - Reevaluation - [place] ?[id number] - [id number] Indications 22yo at 30.0 wks admitted for [...] ZAYDA: ?11/27/12 U/S Today: ? 33w 5d ?ZAYDA: ?10/18/12 Best: ?30w 1d ?? Det. By: [...] participate in the care of [facility] Please do not hesitate to call if you have any questions. ? Lalita Quan MD Electronically Signed Final Report ?? 09/04/2012 03:08 pm Procedure Note Lalita Quan MD - 09/04/2012 OBSTETRICS REPORT (Signed Final 09/04/2012 03:08 pm) Patient Info ID: [id number] : [birth year] (22 yrs) Name: PREETHI Godoy Visit Date: 09/04/2012 02:50 pm LOUISEVishal MARIE Performed By Performed By: Ana Laura Urban Attending: Lalita Quan MD Referred By: CHUCK JANE MD Service(s) Provided UOBFOL - Efw - Growth - Reevaluation - [place] [id number] - [id number] Indications 22yo at 30.0 wks admitted for [...] 19.3 % 20 - 24 Est. FW: 1998 gm 4 lb 6 oz > 95 % Gestational Age LMP: 28w 0d Date: 02/21/12 ZAYDA: 11/27/12 U/S Today: 33w 5d ZYADA: 10/18/12 Best: 30w 1d Det. By: Early [...] Appearance UA Hazy(A) Clear CERNER MILLENNIUM Spec Laurel UA 1.006 1.002 - 1.030 CERNER MILLENNIUM [...] LALITA QUAN ? SORCHA E ? MR#: [id number] ?LOC: ??BP ? /Sex: ??1990 (22 years), ? Female ? PROCEDURE: Urine Culture ?SOURCE: U CC ? COLLECTED: 09/03/2012 22:46 ? STARTED: 09/04/2012 07:08 ? FINAL REPORT ? Final Report ? Verified:2012 07:52 ? 1,000-9,000 cfu/ml Gram Positive organisms , probable contaminant ? CERNER TORINBANNERIUM Urine specimen obtained by clean catch procedure (specimen) 09/03/2012 10:46 PM EDT 09/04/2012 7:08 AM EDT Narrative Resulting Agency Comment Spec In Lab Lalita Quan MD MICROBIOLOGY - GEN ERAL ORDERABLES Performing Organization Address [facility] de Phone Number [facility] * Hepatitis B Surface Antigen (09/03/2012 8:45 PM EDT) Pathologist [facility] HepB Surface Ag Negative Negative [facility] Blood specimen (specimen) 09/03/2012 8:45 PM EDT 09/03/2012 8:55 PM EDT Narrative Resulting Agency Comment Spec In Lab Mely Mccord MD CHEMISTRY ORDERABLES Performing Organization Address [facility] Co de Phone Number [facility] * (ABNORMAL) Differential, Automated (09/03/2012 7:45 PM [...] Abs 0.00 0.00 - 0.05 x10(3)/mc L CERNER MILLENNIUM Blood specimen (specimen) 09/03/2012 7:45 PM EDT 09/03/2012 8:05 PM EDT Lalita Quan MD HEMATOLOGY ORDERAB LES [facility] * Scan, Peripheral Blood (09/03/2012 7:45 PM EDT) Pathologist [facility] Plat Estimate Normal CERNER MILLENNIUM RBC Morphology Abnormal CERNE R MILLENNIUM Macrocytes 1-5 /HPF CERNER MILLENNIUM Blood specimen (specimen) 09/03/2012 7:45 PM EDT 09/03/2012 8:05 PM EDT Narrative Resulting Agency Comment Spec In Lab Lalita Quan MD HEMATOLOGY ORDERAB LES Performing Organization Address [facility] Phone Number [facility] * HIV Antibody Rapid Test (09/03/2012 7:45 PM EDT) HIV Ab/Ag Rapid Non-Reactive Non-React pancho [facility] Comment:Testing done by Who [employer] We[employer] me Immunoassay. HIV Comment Negative screening test indicates low risk of HIV exposure. Called by: RANDI_, Read back by: Lia Rogers_, Date/Time:_ 21:45. [facility] Blood specimen (specimen) 09/03/2012 7:45 PM EDT 09/03/2012 9:19 PM EDT Narrative Resulting Agency Comment Spec In Lab Lalita Quan MD CHEMISTRY ORDERABL ES Performing Organization Address [facility] Number [facility] * Antibody screen (09/03/2012 7:45 PM EDT) Ab Screen Interp Negative [facility] Expires at 2359 on: [id number] [facility] Blood specimen (specimen) 09/03/2012 7:45 PM EDT 09/03/2012 8:08 PM EDT Narrative Resulting Agency Comment Spec In Lab Lalita Quan MD BLOOD BANK LAB ORD ERABLES Performing Organization Address [facility] Phone Number [facility] * ABO/Rh Typing (09/03/2012 7:45 PM EDT) ABORH Type A Pos [facility] Blood specimen (specimen) 09/03/2012 7:45 PM EDT 09/03/2012 8:08 PM EDT Narrative Resulting Agency Comment Spec In Lab Lalita Quan MD BLOOD BANK LAB ORD ERABLES Performing Organization Address [facility] de Phone Number [facility] * (ABNORMAL) CBC (with Diff) (09/03/2012 7:45 PM EDT) Pathologist [facility] WBC 10.0 4.0 - 10.0 x10(3)/mcL [facility] RBC 3.48(L) 3.93 - 5.22 x10(6)/mcL [facility] Hemoglobin 11.9 11.2 - 15.7 gm/dL [facility] Hematocrit 34.0 34.0 - 45.0 % [facility] MCV 97.7(H) 79.0 - 94.0 fL [facility] MCH 34.2(H) 26.6 - 32.2 pg [facility] MCHC 35.0 32.0 - 36.5 gm/dL [facility] Platelets 146 145 - 370 x10(3)/mcL [facility] RDWSD 47.6(H) 35.0 - 46.0 fL [facility] RDWCV 13.4 10.9 - 14.4 % [facility] MPV 13.5(H) 9.0 - 12.0 fL [facility] Blood specimen (specimen) 09/03/2012 7:45 PM EDT 09/03/2012 8:05 PM EDT Narrative Resulting Agency Comment Spec In Lab Lalita Quan MD HEMATOLOGY ORDERAB LES [facility] * Group B Streptococcus Screen (09/03/2012 7:08 PM EDT) [facility] Group B Strep Screen Neg [facility] Pooled specimen from vaginal introitus and rectal swab (specimen) 09/03/2012 7:08 PM EDT 09/03/2012 7:31 PM EDT Comment:PENICILLIN ALLERGY?- >NO Narrative Resulting Agency Comment Spec In Lab Lalita Quan MD MICROBIOLOGY - GEN ERAL ORDERABLES [facility] * (ABNORMAL) Urinalysis with microscopic (09/03/2012 7:08 PM EDT) Glucose UA Negative Negative mg/dL CERNER MILLENNIUM Protein UA 30(A) Neg mg/dL CERNER MILLENNIUM Bilirubin UA Negative Negative mg/dL CERNER MILLENNIUM Urobilinogen UA 4.0(A) Normal mg/dL CERNER MILLENNIUM pH UA 6.5 5.0 - 8.0 CERNER MILLENNIUM Blood UA Negative mg/dL CERNER MILLENNIUM Ketones UA Negative mg/dL CERNER MILLENNIUM Nitrite UA Negative CERNER MILLENNIUM Leukocytes UA Moderate mcL CERNER MILLENNIUM Appearance UA Hazy(A) Clear CERNER MILLENNIUM Spec Laurel UA 1.019 1.002 - 1.030 CERNER MILLENNIUM Color UA [...] * (ABNORMAL) Rapid Qual Drug Screen, Urine ([facility]) (09/03/2012 7:08 PM EDT) TIFFANIE Marijuana Metabolites Scr Presumptive Pos(A) None Detected CERNER MILLENNIUM Comment: Please note that as of 04/12/2012 the testing device changed to the PROFILE-V [employer] Drugs of Abuse Test System. The marijuana metabolites screen detects the THC Metabolite (46-uuy-6-carboxy- 9-THC) ??at concentrations >50 ng/mL. Be aware [...] [employer] Drugs of Abuse Test System. The buprenorphine [...] In Lab Lalita Quan MD URINE ORDERABLES HANNAH HARKINSJAZLYN * Group B Strep Culture Screen (09/03/2012 7:08 PM EDT) Group B Streptococcus Culture ? Patient Name: NICHELLE STEPHEN, ?? Ordered By: LALITA QUAN ? SORURVASHI E ? MR#: [id number] ?LOC: ??BP ? /Sex: ??1990 (22 years), ? Female ? PROCEDURE: Group B Streptococcus Culture ?SOURCE: Vag/Rectal ? COLLECTED: 09/03/2012 19:08 ?FREE TEXT SOURCE: Penicillin Allergy?->No ? STARTED: 09/03/2012 19:31 ? FINAL REPORT ? Final Report ? Verified: 013 10:07 ? No Group B Streptococci isolated ? PRELIMINARY REPORT ? Preliminary Report ? Verified: 013 13:42 ? Culture in progress ? [facility] Pooled specimen from vaginal introitus and rectal swab (specimen) 09/03/2012 7:08 PM EDT 09/03/2012 7:31 PM EDT Comment:PENICILLIN ALLERGY?- >NO Narrative Resulting Agency Comment Spec In Lab Lalita Quan MD MICROBIOLOGY - GEN ERAL ORDERABLES [facility] documented in this encounter Visit Diagnoses [...] PRN, Starting on Sun09/03/12 at 1906, Until Sherrie 09/05/12 at 1257, Pain, Headaches, mild pain, Not [...] PM EDT 8 mg vitamin 27 & rpshdet-nphk-OS 60 mg iron-1 mg tablet Tab 1 [...] Last dose on Sun09/04/12 at 1930, Routine 1999 (Given - Provider: Genet Chun RN) 1929 (Due)1999 (Given - Provider: Carmen Cisneros RN) levothyroxine (SYNTHROID) tablet 200 mcg (CANCELED) 200 mcg, Oral, DAILY, First dose on Sun09/03/12 at 1930, Until Discontinued 2039 (Given - Provider: Genet Chun RN) 0900 (Hold - Provider: Eve Friedman, TRE - Reason: See comment - Comment: Patient takes at night) levothyroxine (SYNTHROID) tablet 250 mcg 250 mcg, Oral, NIGHTLY, First dose (after last modification) on Sun09/04/12 at 2100, Until Discontinued 2100 (Given - Provider: Carmen Cisneros, TRE) NIFEdipine (PROCARDIA) capsule 20 mg (COMPLETED)(Linked Group 1) 20 mg, Oral, ONCE, 1 dose, On Sun09/04/12 at 1145, May repeat in 30 minutes if still jemima, Routine 1206 (Given - Provider: Eve Friedman, TRE) NIFEdipine (PROCARDIA) capsule 20 mg (CANCELED)(Linked Group 1) 20 mg, Oral, EVERY 8 HOURS, First dose on Sun09/04/12 at 1945, Until Discontinued, Hold NIFEdipine for blood pressure less than 85/55 mmHg and notify provider, Routine 1944 (Due)2009 (Given - Provider: Carmen Cisneros RN) 399 (Given - Provider: Carmen Cisneros RN) vitamin 27 & chyejjt-fogy-EH 60 mg iron-1 mg tablet Tab 1 tablet (CANCELED) 1 tablet, Oral, DAILY, First dose on Sun09/03/12 at 1930, Until Discontinued, Routine 1929 (Not Given - Provider: eGnet Chun RN - Reason: NPO) 0900 (Given - Provider: Eve Friedman, TRE) 0834 (Given - Provider: Maite Luke) sodium chloride 0.9 % flush 5 mL (CANCELED) 5 mL, Intravenous, EVERY 12 HOURS, First dose on Sun09/03/12 at 1930, Until Discontinued 1929 (Given - Provider: Genet Chun RN) 0730 (Given - Provider: Eve Friedman, TRE)1929 (Due) 0759 (Given - Provider: Maite Luke) Continuous Medication Order 09/03/2012 09/04/2012 09/05/2012 lactated ringers infusion 1,000 mL (CANCELED) 1,000 mL, at 100 mL/hr, Intravenous, CONTINUOUS, Starting on Sun09/03/12 at 1930, Until Sun09/05/12 at 1257 1930 (New Bag - Provider: Genet Chun, RN) 0530 (New Bag - Provider: Renetta Hurt, RN)1614 (Stopped - Provider: Taty Sepulveda, TRE) PRN Medication Order 09/03/2012 09/04/2012 09/05/2012 acetaminophen (TYLENOL) tablet 650 mg (CANCELED) 650 mg, Oral, EVERY 4 HOURS PRN, Starting on Sun09/03/12 at 1906, Until Sun09/05/12 at 1257, Pain, Headaches, mild pain, Not exceed 4 grams per 24 hours, Routine 1954 (Given - Provider: Genet Chun RN) ondansetron (ZOFRAN) injection 4-8 mg (CANCELED) 4-8 mg, Intravenous, EVERY 8 HOURS PRN, Starting on Sun09/04/12 at 1221, Until Sun09/05/12 at 1257, Nausea, Vomiting 1236 (Given - Provider: Eve Friedman RN) zolpidem (AMBIEN) tablet 5 mg (CANCELED) 5 mg, Oral, NIGHTLY PRN, Starting on Sun09/03/12 at 1906, Until Sun09/05/12 at 1257, Sleep, Routine 2307 (Given - Provider: Genet Chun RN) 213 (Given - Provider: Carmen Cisneros RN) Linked [...] Routine documented in this encounter Care Teams Sales Representative Gas Service Relationship Specialty Start Date End Date None None PCP - General 05/08/12 04/20/14 documented as of this encounter
--- OUTSIDE RECORDS SUMMARY | 2023-10-31 03:22 | XMS_ITS | Encounter Summary ---
Author Organization [facility] [place] [address] Care Team Providers Care Artificial Breast Fabricator Name Role Phone Valencia Adhikari APRN Primary Care Provider [phone] Reason for Visit * Reason Onset Date Comments Other 12/21/2015 Encounter Details Date Type Department Care Team (Late st Contact Info) Description 12/21/2015 Telephone Neurology at [facility] [place] [phone] Neo Pleitez MD [facility] [place] [address] Other Social History Tobacco Use Types Packs/Day [...] asks that I send the order to [facility] lab and I will do that. She will call toschedule her MRI. * Telephone Encounter - Jeanette Doss - 12/21/2015 1:54 PM EDT Patient called looking for results from labs from this morning Please call [phone] Thanks documented in this encounter Plan of Treatment Upcoming Encounters Date Type Department Care Team (Late st Contact Info) Description 11/08/2023 1:45 PM EDT Appointment Ultrasound at [place] [phone] Kelsea Shafer MD [facility] [place] [address] 11/08/2023 3:00 PM EDT Routine Obstetrics and Gynecology at [place] [phone] Ab, Lexii C, [facility] [place] [address] 05/23/2024 Hospital Encounter Birthing [place] [phone] Maite Malloy MD [facility] [place] [address] documented as of this encounter Visit Diagnoses Not on filedocumented in this encounter Care Teams Artificial Breast Fabricator Relationship Specialty Start Date End Date Valencia Adhikari APRN [address] [place] [address] PCP - General 04/21/14 07/04/23 documented as of this encounter
--- OUTSIDE RECORDS SUMMARY | 2023-10-31 03:22 | XMS_ITS | Encounter Summary ---
Author Organization [facility] [place] [address] Care Team Providers Care Insert Cutter Name Role Phone Valencia Adhikari APRN Primary Care Provider [phone] Reason for Visit * Reason Comments Other Encounter Details Date Type Department Care Team (Late st Contact Info) Description 04/01/2015 Telephone Obstetrics [place] [phone] Pam Chaidez CHILD CARE EDUCATION COORDINATOR [facility] OBSTETRICS & [place] [address] Social History Tobacco Use Types Packs/Day Years [...] 11/08/2023 1:45 PM EDT Appointment Ultrasound at [place] [phone] Kelsea Shafer MD [facility] [place] [address] 11/08/2023 3:00 PM EDT Routine Obstetrics [place] [address] Ab, Lexii C, CN[place] [facility] [address] 05/23/2024 Hospital Encounter [place]thing [place] [phone] Maite Malloy MD [facility] [place] [address] documented as of this encounter Visit Diagnoses Not on filedocumented in this encounter Care Teams Insert Cutter Relationship Specialty Start Date End Date Valencia Adhikari APRN [address] [place] [address] PCP - General 04/21/14 07/04/23 documented as of this encounter
--- OUTSIDE RECORDS SUMMARY | 2023-10-31 03:22 | XMS_ITS | Encounter Summary ---
Author Organization [facility] [place] [address] Care Team Providers Care Wirer Street Light Name Role Phone None Primary Care Provider Unavailabl e Encounter Details Date Type Department Care Team (Late st Contact Info) Description 09/30/2012 Orders Only [place] [phone] Griffin Wallis III, MD [facility] [place] [address] Hypothyroidism (Primary Dx) Social History [...] 11/08/2023 1:45 PM EDT Appointment [place] [phone] Kelsea Shafer MD [facility] OBSTETRICS [place] [address] 11/08/2023 3:00 PM EDT Routine Obstetrics [place] [address] Ab, Lexii Khan CNM [facility] [place] [address] 05/23/2024 [place] [phone] Maite Malloy MD [facility] OBSTETRICS [place] [address] documented as of this encounter Visit Diagnoses Diagnosis Hypothyroidism- Primary Unspecified hypothyroidism documented in this encounter Care Teams Wirer Street Light Relationship Specialty Start Date End Date None None PCP - General 05/08/12 04/20/14 documented as of this encounter
--- OUTSIDE RECORDS SUMMARY | 2023-10-31 03:22 | XMS_ITS | Encounter Summary ---
Author Organization [facility] Address [facility] [place] [address] Care Team Providers Care Client Customer Manager Name Role Phone Jason Gomez APRN Primary Care Provider [phone] Reason for Visit * Reason Comments Headache Dizziness * Consultation (Routine) - Closed Specialty Diagnoses / Procedures Referred By Contac t Referred To Contact Neurology Diagnoses headaches Jason Gomez APRN [address] [place] [address] [facility] Neurology [address] [place] [id number] Referral ID Status Reason Start Date Expiration Date V isits Requested Visits Authorized [id number] Closed Consult, [facility] 12/13/2015 12/12/2016 1 1 Encounter Details Date Type Department Care Team (Late st Contact Info) Description 12/21/2015 8:30 AM EDT [place] [phone] Neo Pleitez MD [facility] [place] [address] Evelyn Pelayo MD [address] [place] [id number] Migraine with vertigo; Intractable chronic migraine without [...] diary to the next appointment. Please check [employer] web site and read about [...] side effects, please call my office at [phone], Sunday through Sunday, 8 AM to 5 [...] h, last MINAYA started 20 min ago CORRECTION OFFICER, varies in degree of intensity MINAYA free [...] performed by JUAN ESPARZA at [facility] MAIN OR ??? Prg somatosensory test, any/all per. nerves, trunk or head 03/22/2011 FACIAL NERVE MONITORING, SETUP performed by JUAN ESPARZA at [facility] MAIN OR ??? [place] tooth extraction ??? Upper gastrointestinal endoscopy for IBS, celiac excluded ??? Colonoscopy found polyps ??? Tonsillectomy 2010 Social History: Social History Social History ??? Marital status: Single Spouse name: N/A ??? Number of children: 0 ??? 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 Smoking status: [...] since it works well. Patient was given [employer] handouts about her headache condition [...] 11/08/2023 1:45 PM EDT [place] [address] Kelsea Shafer MD [facility] OBSTETRICS [place] [address] 11/08/2023 3:00 PM EDT Routine Obstetrics and Gynecology at [place] [phone] Lexii Berger CNM [facility] [place] [address] 05/23/2024 Hospital Encounter [facility] [place] [phone] Maite Malloy MD [facility] [place] [address] documented as of this encounter Procedures Procedure Name Priority Date/Time Associated Diagnosis Comments URINE, QUALITATIVE ([facility]) Routine 12/21/2015 11:36 AM EDT Migraine with vertigo Intractable chronic migraine without aura and without status migrainosus documented in this encounter Results * urine, qualitative (12/21/2015 11:36 AM EDT) SG Urine 1.017 1.002 - 1.030 [facility] HCG Qual Negative [facility] Comment: If Specific [place] is less than 1.010, a negative result is obtained, and is still suspected, a repeat on a first morning specimen is recommended. Urine specimen (specimen) 12/21/2015 11:36 AM EDT 12/21/2015 12:08 PM EDT Narrative Resulting Agency Comment Spec In Lab Evelyn Pelayo MD URINE ORDERABLES [facility] [place] [address] documented in this encounter Visit Diagnoses Diagnosis Migraine with vertigo Migraine with aura, without mention of intractable migraine without mention of status migrainosus Intractable chronic migraine without aura and without status migrainosus Chronic migraine without aura, with intractable migraine, so stated, without mention of status migrainosus documented in this encounter Care Teams Client Customer Manager Relationship Specialty Start Date End Date Jason Gomez APRN [address] [place] [address] PCP - General 04/21/14 07/04/23 documented as of this encounter
--- OUTSIDE RECORDS SUMMARY | 2023-10-31 03:22 | XMS_ITS | Encounter Summary ---
Author Organization [facility] [place] [address] Care Team Providers Care Hollow Handle Bench Worker Name Role Phone None Primary Care Provider Unavailabl e Reason for Visit * Reason Onset Date Comments Triage 04/17/2014 Encounter Details Date Type Department Care Team (Late st Contact Info) Description 04/17/2014 Telephone Orthopaedics at [facility] [place] [phone] Omayra Fulton, insurance verifier Social History Tobacco Use Types Packs/Day Years [...] Received 6 pages of office notes from [facility], for the patients upcoming appointment. List what was rec'd. ED NOTES XR RESULTS * Telephone Encounter - Omayra Schroeder RN - 04/17/2014 1:58 PM EST Appropriate for AP or Gen Ortho. * Telephone Encounter - Taty Browne - 04/17/2014 10:36 AM EST Ask the patient to verify the following: Full Name: Andree UnderwoodWilliams : 1990 Phone number: [phone] (home) Mailing address: [address] [place] [phone] Age: 23 y.o. Mom states patient was trying to move out of the way of a car and slipped and possibly hit her kneeoff a guardrail. She was seen in [facility] ED and was told she probably has a meniscus tear and needs tofollow up with Ortho. Mom states she works here. Please call her as her daughter is not available. Her name is Carmina and her number is [phone]. Appointment date: TBD Appointment is with: TBD [...] X-rays: Yes - When? Where? Notes: 04/15/14 [place], [place] PH: [phone] FAX: [phone] IMG PUSH SEEN IN THEIR ED THIS [...] copy to your next appointment. Advance Directive ship pilot dispatcher: New patient with knee pain under age of 56. MyDH Do you have a [facility] account? No - Patient Declined - MOM BOOKED documented in this encounter Plan of Treatment Upcoming Encounters Date Type Department Care Team (Late st Contact Info) Description 11/08/2023 1:45 PM EDT Appointment Ultrasound at [place] [phone] Kelsea Shafer MD [facility] OBSTETRICS [place] [address] 11/08/2023 3:00 PM EDT Routine Obstetrics and Gynecology at [place] [phone] Ab, Lexii Khan, RAY [facility] [address] [place] [address] 05/23/2024 Hospital Encounter Birthing [place] [phone] Maite Malloy MD [facility] [place] [address] documented as of this encounter Visit Diagnoses Not on filedocumented in this encounter Care Teams Hollow Handle Bench Worker Relationship Specialty Start Date End Date None None PCP - General 05/08/12 04/20/14 documented as of this encounter
--- OUTSIDE RECORDS SUMMARY | 2023-10-31 03:22 | XMS_ITS | Encounter Summary ---
Author Organization [facility] [place] [address] Care Team Providers Care Optician Manager Name Role Phone None Primary Care Provider Unavailabl e Encounter Details Date Type Department Care Team (Late st Contact Info) Description 12/12/2012 [place] [phone] Omayra Meredith LPN Social History Tobacco Use [...] Taking 250 mcg daily. Called lab at [facility] for results. Received and forward to Dr avila. * Telephone Encounter - Omayra Meredith LPN - 12/12/2012 11:35 AM EDT Patient asking for order to go to [facility] to check thyroid has not been checked since of baby and was not able to go at beginning of November as baby was sick. Order faxed to [facility] documented in this encounter Plan of Treatment Upcoming Encounters Date Type Department Care Team (Late st Contact Info) Description 11/08/2023 1:45 PM EDT Appointment Ultrasound at [place] [phone] Kelsea Shafer MD [facility] OBSTETRICS [place] [address] 11/08/2023 3:00 PM EDT Routine Obstetrics [place] [phone] Ab, Lexii Khan CNM [facility] [place] [address] 05/23/2024 Hospital Encounter Birthing [place] [phone] Maite Malloy MD [facility] OBSTETRICS [place] [address] documented as of this encounter Visit Diagnoses Not on filedocumented in this encounter Care Teams Optician Manager Relationship Specialty Start Date End Date None None PCP - General 05/08/12 04/20/14 documented as of this encounter
--- OUTSIDE RECORDS SUMMARY | 2023-10-31 03:22 | XMS_ITS | Encounter Summary ---
Author Organization [facility] [place] [address] Care Team Providers Care Paralegal Legal Secretary Name Role Phone None Primary Care Provider Unavailabl e Reason for Visit * Reason Onset Date Comments Medication Refill 12/17/2012 Encounter Details Date Type Department Care Team (Late st Contact Info) Description 12/17/2012 Refill [place] [phone] Griffin Wallis III, MD [facility] [place] [address] Social History Tobacco Use Types Packs/Day Years [...] 11/08/2023 1:45 PM EDT Appointment [place] [phone] Kelsea Shafer MD [facility] OBSTETRICS [place] [address] 11/08/2023 3:00 PM EDT Routine Obstetrics [place] [address] Ab, Lexii Khan CNM [facility] [place] [address] 05/23/2024 [place] [phone] Maite Malloy MD [facility] OBSTETRICS [place] [address] documented as of this encounter Visit Diagnoses Not on filedocumented in this encounter Care Teams Paralegal Legal Secretary Relationship Specialty Start Date End Date None None PCP - General 05/08/12 04/20/14 documented as of this encounter
--- OUTSIDE RECORDS SUMMARY | 2023-10-31 03:22 | XMS_ITS | Encounter Summary ---
Author Organization [facility] Address [facility] [place] [address] Care Team Providers Care Delphi Developer Name Role Phone None Primary Care Provider Unavailabl e Reason for Visit * Reason Comments Laboring Encounter Details Date Type Department Care Team (Latest Contact Info) Description 09/13/2012 12:09 AM EDT - 09/14/2012 12:06 PM EDT [place] [phone] Mely Mccord MD [facility] OBSTETRICS [facility] [place] [address] Hypothyroidism (Primary Dx); Abnormal antibody titer; Depression; [...] V RN - 09/14/2012 11:38 [place] [address] [facility] to contact OB doctor [phone] to contact family doctor to contact sql application developer Andree Wallis-Tamara @ 09/14/12 @ 11:37 AM Following your visit to [facility] Triage Reason for Visit: Chief Complaint Patient presents with ??? Laboring Gestation - under 37 weeks Notify your provider if: You are feeling any cramping sensations in your abdomen more than 20 minutes apart [place]Vaz[place] Contractions usually are irregular may get less [...] a vaginal exam in your doctor's or sql application developer's office you should not bleed as much as a period You have noticed a marked decrease in your baby's movement refer to your kick count instructions in the Your Journey book Your baby should move at least 10 times in 2 hours You have had any direct trauma to your abdomen such as a car accident, fall, or impact Call your doctor or sql application developer if you have the following symptoms: Headache [...] dehydratio Keep your regularly scheduled doctor or sql application developer appointment Your medications: Current Facility-Administered Medications on [...] by mouth nightly. 30 tablet 2 ??? 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 Managed by endocrine. 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 Managed by endocrine. Synthroid dose recently increased from 200mcg QD to 250mcg QD as TSH was most recently 34.90. Continue 250mcg QD. Repeat TSH planned for 10/05/12 - 1 month after dose change. 2. Marijuana use - urine tox positive, as it has been throughout Mely Klein MD PGY-4 #[id number] * Valencia Meehan RN - 09/13/2012 10:32 [...] Office of Care Management (OCM) / Clinical Medical Or Surgical Instrument Maker (CRC)/ Initial Assessment Discussed patient with Provider [...] with FOB off. Loss of job.Seen by INSURANCE VERIFIER 7 days ago during last admission. Referred again for social work support. ADVANCE DIRECTIVES: None HEALTH /PRESCRIPTION COVERAGE: Health Plans, [facility] Under her mother's plan CURRENT HOME/COMMUNITY SERVICES/EQUIPMENT: DME: None Home Health Agency: Connected with [facility]. Referred to [facility] for childbirth education, and free food,diapers, car seat assistance. Other: N/A INSURANCE VERIFIER REFERRAL: Notified INSURANCE VERIFIER - for Support/Financial/Medication Assistance; See INSURANCE VERIFIER notes for further needs. PRIMARY CARE PHYSICIAN: None None None POTENTIAL DISCHARGE NEEDS: Education. ? 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 Managed by endocrine. Synthroid dose recently increased from 200mcg QD to 250mcg QD as TSH was most recently 34.90. Continue 250mcg QD. Repeat TSH planned for 10/05/12 - 1 month after dose change. 2. Marijuana use - urine tox positive, as it has been throughout Mely Klein MD PGY-4 #[id number] MFM attending note I saw and evaluated [...] notified and RN redirected to Programer at [phone]. 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 Managed by endocrine. Synthroid dose recently increased [...] DISSECTION performed by JUAN ESPARZA at [facility] OR ??? Somatosensory test, any/all per. nerves, trunk or head 03/22/2011 FACIAL NERVE MONITORING, SETUP performed by JUAN ESPARZA at [facility] OR ??? [place] tooth extraction ??? Upper gastrointestinal endoscopy for [...] by mouth nightly. 30 tablet 2 ??? dbbyckrgwl-rpxpmkytoqjjk-hdsurbpi (FIORICET, ESGIC) per tablet Take 1 tablet [...] results found for this basename: GLUCDOSE, GLUCBASELINE, VDJNYUJ3AG, LABGLUC2, LABGLUC3, Lab Results Component Value Date [...] Post-surgical hypothyroidism: follicular adenoma removed 03/2011 at [facility]. Managed by endocrine. Synthroid dose recently increased [...] Mccord MD Discharge Summary Antepartum Care Provider: [facility] Referring Provider if applicable: n/a Discharge Diagnoses (Hospital Problems) and Secondary Diagnoses (Chronic Problems): Active Hospital Problems Diagnoses ??? Threatened labor, antepartum ??? , supervision of, high-risk Team [facility] transfer of care from [facility] Delivery plan GBS date & Result [...] care. ??? , supervision of, high-risk Team [facility] transfer of care from [facility] Delivery plan GBS date & Result [...] Andree WallisYasir is a 22 y.o. 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 Managed by endocrine. Synthroid dose recently increased [...] 09/05/2012, Until Discontinued, Disp-30 tablet, R-2, Normal ggwlskvmis-lyrxhhirkgngp-ijofigul (FIORICET, ESGIC) per tablet Take 1 tablet [...] DISSECTION performed by JUAN ESPARZA at [facility] ??? Somatosensory test, any/all per. nerves, trunk or head 03/22/2011 FACIAL NERVE MONITORING, SETUP performed by JUAN ESPARZA at [facility] OR ??? [place] tooth extraction ??? Upper gastrointestinal endoscopy for [...] sexual intercourse, long shopping trips. General Instructions [address] to contact OB doctor [phone] to contact family doctor to contact sql application developer Andree Wallis-Tamara @ 09/14/12 @ 11:37 AM Following your visit to [facility] Triage Reason for Visit: Chief Complaint Patient presents with ??? Laboring Gestation - under 37 weeks Notify your provider if: You are feeling any cramping sensations in your abdomen more than 20 minutes apart [place]Vaz[place] Contractions usually are irregular may get less [...] a vaginal exam in your doctor's or sql application developer's office you should not bleed as much as a period You have noticed a marked decrease in your baby's movement refer to your kick count instructions in the Your Journey book Your baby should move at least 10 times in 2 hours You have had any direct trauma to your abdomen such as a car accident, fall, or impact Call your doctor or sql application developer if you have the following symptoms: Headache [...] dehydratio Keep your regularly scheduled doctor or sql application developer appointment Your medications: Current Facility-Administered Medications on [...] by mouth nightly. 30 tablet 2 ??? qrwvnnajvo-hiizupmnhdtqh-dmxqbjsn (FIORICET, ESGIC) per tablet Take 1 tablet [...] Yaneth Griffith MD Psychiatry and Behavioral Health [phone] [facility] Joint Appt Questionnaire Five D Res-Psych [facility] 5D [phone] [facility] Referrals:none MELY KLEIN MD 09/15/2012 Cc: * Miscellaneous - Provider, Scanning - 09/13/2012 3:59 PM EDT documented in this encounter Plan of Treatment Upcoming Encounters Date Type Department Care Team (Late st Contact Info) Description 11/08/2023 1:45 PM EDT Appointment [place] [phone] Kelsea Shafer MD [facility] OBSTETRICS AND [place] [address] 11/08/2023 3:00 PM EDT Routine Obstetrics [place] [address] Lexii Berger CNM [place] [address] 05/23/2024 Hospital Encounter [place] [address] Maite Malloy MD [facility] DR OBSTETRICS AND [place] [address] documented as of this encounter Procedures Procedure [...] EDT) Oral Glucose Dose 50 gm HANNAH SERRANO Blood specimen (specimen) 09/13/2012 4:15 PM EDT 09/13/2012 4:23 PM EDT Mely Mccord MD CHEMISTRY ORDERABLES CERNER MILLENNIUM * Gluc 1 Hr (09/13/2012 4:15 PM EDT) Glucose 1 hour 83 mg/dL BI POTTERIUM Blood specimen (specimen) 09/13/2012 4:15 PM EDT 09/13/2012 4:23 PM EDT Narrative Resulting Agency Comment Spec In Lab Mely Mccord MD CHEMISTRY ORDERABLES HANNAH POTTERIUM * (ABNORMAL) Differential, Automated (09/13/2012 5:00 AM [...] Abs 0.03 0.00 - 0.05 x10(3)/mc L YAZNER TORINENNIUM Blood specimen (specimen) 09/13/2012 5:00 AM EDT 09/13/2012 6:11 AM EDT Mely Mccord MD HEMATOLOGY ORDERABLE S HANNAH POTTERIUM * Scan, Peripheral Blood (09/13/2012 5:00 AM EDT) Plat Estimate Decreased CERNER TORINENNIUM RBC Morphology Abnormal CERNE R MILLENNIUM Macrocytes 1-5 /HPF CERNER MILLENNIUM Giant Platelets Less than 1 /HPF CERNER TORINENNIUM Blood specimen (specimen) 09/13/2012 5:00 AM EDT 09/13/2012 6:11 AM EDT Narrative Resulting Agency Comment Spec In Lab Mely Mccord MD HEMATOLOGY ORDERABLE S HANNAH POTTERIUM * Antibody screen (09/13/2012 5:00 AM EDT) Ab Screen Interp Negative HANNAH POTTERIUM Expires at [id number] on: [id number] HANNAH POTTERIUM Blood specimen (specimen) 09/13/2012 5:00 AM EDT 09/13/2012 6:09 AM EDT Narrative Resulting Agency Comment Spec In Lab Mely Mccord MD BLOOD BANK LAB ORDER AMANDA HANNAH POTTERIUM * ABO/Rh Typing (09/13/2012 5:00 AM EDT) ABORH Type A Pos HANNAH HARKINSENNIUM Blood specimen (specimen) 09/13/2012 5:00 AM EDT 09/13/2012 6:09 AM EDT Narrative Resulting Agency Comment Spec In Lab Mely Mccord MD BLOOD BANK LAB ORDER AMANDA HANNAH POTTERIUM * (ABNORMAL) Rapid Qual Drug Screen, Urine ([facility]) (09/13/2012 5:00 AM EDT) TIFFANIE Marijuana Metabolites Scr Presumptive Pos(A) None Detected CERNER MILLENNIUM Comment: The marijuana metabolites screen detects the THC Metabolite (51-cxl-2-carboxy- 9-THC) at concentrations >50 ng/mL. Qualitative Drug screens are reported as None Detected or Presumptive Positive as the results are not routinely confirmed by highly-specific methods. As with any screen occasional false positive results from cross-reacting substances can occur. Not for Medico-Legal Purposes. TIFFANIE Phencyclidine Scr None Detected None Detected CERNER MILLENNIUM Comment: The phencyclidine screen detects phencyclidine at [...] Resulting Agency Comment Spec In Lab Mely Mccrod MD URINE ORDERABLES Performing Organization Address [facility] Co de Phone Number HANNAH SERRANO * (ABNORMAL) Rubella Antibody, IgG (09/13/2012 5:00 AM EDT) Pathologist [facility] Rubella IgG Negative( A) Positive [facility] Comment: Please note: ??A positive result for this assay indicates that antibody levels are >or= 10.0 IU/mL and is considered to be an indicator of positive immune status. Blood specimen (specimen) 09/13/2012 5:00 AM EDT 09/13/2012 6:11 AM EDT Narrative Resulting Agency Comment Spec In Lab Mely Mccord MD IMMUNOLOGY ORDERABLE S Performing Organization Address [facility] Co de Phone Number [facility] * (ABNORMAL) CBC (with Diff) (09/13/2012 5:00 AM EDT) WBC 10.1(H) 4.0 - 10.0 x10(3)/mcL CERNER MILLENNIUM RBC 3.45(L) 3.93 - 5.22 x10(6)/mcL HANNAH MILLENNIUM Hemoglobin 11.7 11.2 - 15.7 gm/dL HANNAH HARKINSENNIUM Hematocrit 34.3 34.0 - 45.0 % HANNAH HARKINSENNIUM MCV 99.4(H) 79.0 - 94.0 fL HANNAH AHRKINSENNIUM MCH 33.9(H) 26.6 - 32.2 pg HANNAH HARKINSENNIUM MCHC 34.1 32.0 - 36.5 gm/dL [facility] TORINENNIUM Platelets 127(L) 145 - 370 x10(3)/mcL HANNAH HARKINSENNIUM RDWSD 49.0(H) 35.0 - 46.0 fL HANNAH HARKINSENNIUM RDWCV 13.6 10.9 - 14.4 % HANNAH HARKINSENNIUM MPV 13.9(H) 9.0 - 12.0 fL HANNAH HARKINSENNIUM Blood specimen (specimen) 09/13/2012 5:00 AM EDT [...] AM EDT 4 mg vitamin 27 & hmndgge-owuj-CA 60 mg iron-1 mg tablet Tab 1 [...] Carmen Cisneros RN)0615 (Due) vitamin 27 & wauqvtc-orwl-PD 60 mg iron-1 mg tablet Tab 1 [...] Routine 0901 (Given - Provid er: Emeli Jimenez RN) docusate sodium (COLACE) capsule 100 mg [...] RN) documented in this encounter Care Teams Delphi Developer Relationship Specialty Start Date End Date None None PCP - General 05/08/12 04/20/14 documented as of this encounter
--- OUTSIDE RECORDS SUMMARY | 2023-10-31 03:22 | XMS_ITS | Encounter Summary ---
Author Organization [facility] Address [facility] [place] [address] Care Team Providers Care Planogrammer Name Role Phone Valencia Adhikari APRN Primary Care Provider [phone] Reason for Visit * Reason Comments Back Pain Encounter Details Date Type Department Care Team (Late st Contact Info) Description 04/25/2015 10:57 PM EST - 04/26/2015 1:39 AM [place] [address] Eduardo Braun MD [facility] [place] [address] Cervical strain, initial encounter; Closed head injury, [...] Miscellaneous Notes * ED Triage - Shanika Marcum RN - 04/25/2015 11:00 PM EST Pt [...] 11/08/2023 1:45 PM EDT Appointment [place] [address] Kelsea Shafer MD [facility] OBSTET[place] [address] 11/08/2023 3:00 PM EDT Routine Obstetrics [place] [address] Ab, Lexii Khan CNM [facility] [address] [place] [id number] 05/23/2024 [place] [address] Maite Malloy MD [facility] OBSTET[place] [address] documented as of this encounter Procedures Procedure [...] David Felipe at 04/26/2015 1:[address] ORDERABLES * CT Thoracic Spine Wo [...] David Felipe at 04/26/2015 1:[address] ORDERABLES * CT Head & Cervical [...] 2 tablet, Oral, ONCE, 1 dose, On Sun04/26/15 at 0031, Maximum dose of acetaminophen is [...] Lakhani) documented in this encounter Care Teams Planogrammer Relationship Specialty Start Date End Date Valencia Adhikari APRN [address] [place] [address] PCP - General 04/21/14 07/04/23 documented as of this encounter
--- OUTSIDE RECORDS SUMMARY | 2023-10-31 03:22 | XMS_ITS | Encounter Summary ---
Author Organization [facility] [place] [address] Care Team Providers Care Ultrasonographer Name Role Phone None Primary Care Provider Unavailabl e Encounter Details Date Type Department Care Team (Late st Contact Info) Description 07/04/2013 Telephone [place] [address] Omayra Meredith LPN Social History Tobacco Use [...] 11/08/2023 1:45 PM EDT Appointment [place] [address] Kelsea Shafer MD [facility] [place]ST[place] [address] 11/08/2023 3:00 PM EDT Routine Obstetrics [place] [address] Ab, Lexii Khan, CNM [facility] [place] [address] 05/23/2024 Hospital Encounter Birthing [place] [phone] Maite Malloy MD [facility] OBSTETRICS AND GYNECOLOGY [place], [place] [phone] documented as of this encounter Visit Diagnoses Not on filedocumented in this encounter Care Teams Ultrasonographer Relationship Specialty Start Date End Date None None PCP - General 05/08/12 04/20/14 documented as of this encounter
--- OUTSIDE RECORDS SUMMARY | 2023-10-31 03:22 | XMS_ITS | Encounter Summary ---
Author Organization [facility] [place] [address] Care Team Providers Care Shipyard Painter Apprentice Name Role Phone Valencia Adhikari APRN Primary Care Provider [phone] Encounter Details Date Type Department Care Team (Latest Contact Info) Description 09/20/2014 - 09/20/2014 11:59 PM EDT Hospital Encounter [place] [phone] Kedar Santos MD [facility] [place] [address] Discharge Disposition: Home Social History Tobacco Use [...] 11/08/2023 1:45 PM EDT Appointment Ultrasound at [place] [phone] Kelsea Shafer MD [facility] OBSTETRICS [place] [address] 11/08/2023 3:00 PM EDT Routine Obstetrics [place] [address] [facility] [place] [address] 05/23/2024 [place] [address] Maite Malloy MD [facility] OBSTETRICS [place] [address] documented as of this encounter Procedures Procedure Name Priority Date/Time Associated Diagnosis Comments FILM LIBRARY STORAGE ONLY DX ELBOW Routine 09/20/2014 12:00 AM EDT documented in this encounter Results * Film Library- Storage Only DX Elbow (09/20/2014 12:00 AM EDT) Narrative [facility] - 05/17/2017 11:27 AM EST This exam is for storage only and is auto-finalizing. Kedar Santos MD IMG FILM LIBRARY ORD ERABLES [place], [place] documented in this encounter Visit Diagnoses Not on filedocumented in this encounter Care Teams Shipyard Painter Apprentice Relationship Specialty Start Date End Date Valencia Adhikari, KITCHEN CLERK [address] [place] [address] PCP - General 04/21/14 07/04/23 documented as of this encounter
--- OUTSIDE RECORDS SUMMARY | 2023-10-31 03:22 | XMS_ITS | Encounter Summary ---
Author Organization [facility] [place] [address] Care Team Providers Care Group Work Program Aide Name Role Phone Valencia Adhikari APRN Primary Care Provider [phone] Encounter Details Date Type Department Care Team (Late st Contact Info) Description 04/01/2015 9:00 AM EST Office Visit Obstetrics [place] [phone] Pam Chaidez APRN [facility] OBSTETRICS & [place] [address] Nipple discharge in female (Primary Dx); Possible [...] encounter Progress Notes * Анна, Pam M, WOOL HAT FORMING MACHINE TENDER - 04/01/2015 8:45 AM EST REASON FOR [...] was removed without difficulty and as per weapons mechanic instructions. Pt tolerated the procedure well. The [...] 11/08/2023 1:45 PM EDT [place] [phone] Kelsea Shafer MD [facility] [place] [address] 11/08/2023 3:00 PM EDT Routine Obstetrics and Gynecology at [facility] [place] [address] Ab, Lexii Khan CNM [facility] [place] [address] 05/23/2024 Hospital Encounter Birthing [place] [facility] [place] [phone] Maite Malloy MD [facility] OBSTETRICS [place] [address] documented as of this encounter Procedures Procedure [...] Results * GC/Chlam (04/01/2015 10:09 AM EST) GC Gene Amp Negative Negative CERNER MILLENNIUM Comment: The only FDA approved specimen types for this assay are cervix, vagina, urethra and urine. ??The sensitivity and specificity of the assay for other specimen types has not been determined. GC Source Urine CERNER MILLENNIUM Chlamydia Gene Amp Negative Negative CERNER MILLENNIUM Comment: The only FDA approved specimen types for this assay are cervix, vagina, urethra and urine. ??The sensitivity and specificity of the assay for other specimen types has not been determined. Chlamydia Source Urine CERNER MILLENNIUM Urine specimen (specimen) 04/01/2015 10:09 AM EST 04/01/2015 10:19 AM EST Narrative Resulting Agency Comment Spec In Lab Richard N Theiler MD MICROBIOLOGY - GENER AL ORDERABLES HANNAH SERRANO * Beta HCG, quantitative (04/01/2015 10:02 AM EST) Beta hCG Quant <1 mlU/ML BI R TORINENNIUM Comment: REFERENCE RANGES NON- FEMALE: ??Less than [...] - 56,451 ?17 weeks ? 8,175 - 55,868 ?18 weeks ? 8,099 - 72,176 Blood specimen (specimen) 04/01/2015 10:02 AM EST 04/01/2015 10:15 AM EST Narrative Resulting Agency Comment Spec In Lab Richard Faust MD CHEMISTRY ORDERABLES Performing Organization Address [facility] Co de Phone Number CERSWETA HARKINSENNIUM * Prolactin (04/01/2015 10:02 AM EST) Prolactin 21.1 4.8 - 23.3 ng/mL CERNER MILLENNIUM Blood specimen (specimen) 04/01/2015 10:02 AM EST 04/01/2015 10:15 AM EST Narrative Resulting Agency Comment Spec In Lab Richard Faust MD CHEMISTRY ORDERABLES Performing Organization Address [facility] Co de Phone Number CERSWETA HARKINSENNIUM * POCT urine (04/01/2015) POC Urine HCG Negative Negative - Negative [...] disease documented in this encounter Care Teams Group Work Program Aide Relationship Specialty Start Date End Date Valencia Adhikari APRN [address] [place] [address] PCP - General 04/21/14 07/04/23 documented as of this encounter
--- OUTSIDE RECORDS SUMMARY | 2023-10-31 03:22 | XMS_ITS | Encounter Summary ---
Author Organization [facility] Address [facility] [place] [address] Care Team Providers Care Concert Or Lecture Hall Manager Name Role Phone Valencia Adhikari APRN Primary Care Provider [phone] Encounter Details Date Type Department Care Team (Latest Contact Info) Description 02/06/2016 12:10 AM EDT - 02/06/2016 11:59 PM EDT Hospital Encounter [place] [address] Kedar Santos MD [facility] DR ORTHOPAEDIC [place] [address] Discharge Disposition: Home Social History Tobacco Use [...] 11/08/2023 1:45 PM EDT [place] [phone] Kelsea Shafer MD [facility] OBSTETRICS [place] [address] 11/08/2023 3:00 PM EDT Routine Obstetrics [place] [address] Ab, Lexii Khan CNM [facility] [place] [address] 05/23/2024 Hospital [place] [address] Maite Malloy MD [facility] OBSTETRICS [place] [address] documented as of this encounter Procedures Procedure Name Priority Date/Time Associated Diagnosis Comments FILM LIBRARY STORAGE ONLY CT ELBOW Routine 02/06/2016 12:10 AM EDT documented in this encounter Results * Film Library- Storage Only CT Elbow (02/06/2016 12:10 AM EDT) Narrative RAD - 05/17/2017 11:25 AM EST This exam is for storage only and is auto-finalizing. Kedar Santos MD IMG FILM LIBRARY ORD ERABLES [place], [place] documented in this encounter Visit Diagnoses Not on filedocumented in this encounter Care Teams Concert Or Lecture Hall Manager Relationship Specialty Start Date End Date Valencia Adhikari APRN [address] [place] [address] PCP - General 04/21/14 07/04/23 documented as of this encounter
--- OUTSIDE RECORDS SUMMARY | 2023-10-31 03:22 | XMS_ITS | Encounter Summary ---
Author Organization [facility] Address [facility] [place] [address] Care Team Providers Care Engineering Psychologist Name Role Phone Valencia Adhikari APRN Primary Care Provider [phone] Encounter Details Date Type Department Care Team (Latest Contact Info) Description 02/06/2016 12:05 AM EDT - 02/06/2016 12:09 AM EDT Hospital Encounter [place] [address] Kedar Santos MD [facility] [place] [address] Discharge Disposition: Home Social History Tobacco Use [...] 11/08/2023 1:45 PM EDT [place] [phone] Kelsea Shafer MD [facility] [place] [address] 11/08/2023 3:00 PM EDT Routine Obstetrics [place] [address] Ab, Lexii Khan CNM [facility] [place] [address] 05/23/2024 Hospital [place] [address] Maite Malloy MD [facility] [place] [address] documented as of this encounter Procedures Procedure [...] Santos MD IMG FILM LIBRARY ORD ERABLES [place], [place] documented in this encounter Visit Diagnoses Not on filedocumented in this encounter Care Teams Engineering Psychologist Relationship Specialty Start Date End Date Valencia Adhikari APRN [address] [place] [address] PCP - General 04/21/14 07/04/23 documented as of this encounter
--- OUTSIDE RECORDS SUMMARY | 2023-10-31 03:22 | XMS_ITS | Encounter Summary ---
Author Organization [facility] [place] [address] Care Team Providers Care Assistant Auto Center Manager Name Role Phone Valencia Adhikari APRN Primary Care Provider [phone] Encounter Details Date Type Department Care Team (Latest Contact Info) Description 02/06/2016 - 02/06/2016 12:04 AM EDT Hospital Encounter [place] [phone] Kedar Santos MD [facility] ORTHOPAEDIC [place] [address] Discharge Disposition: Home Social History Tobacco Use [...] 11/08/2023 1:45 PM EDT [place] [phone] Kelsea Shafer MD [facility] OBSTETRICS AND [place] [address] 11/08/2023 3:00 PM EDT Routine Obstetrics [place] [phone] Ab, Lexii Khan CNM [facility] [place] [address] 05/23/2024 Hospital En[place] [address] Maite Malloy MD [facility] OBSTETRICS AND [place] [address] documented as of this encounter Procedures Procedure Name Priority Date/Time Associated Diagnosis Comments FILM LIBRARY STORAGE ONLY DX ELBOW Routine 02/06/2016 12:00 AM EDT documented in this encounter Results * Film Library- Storage Only DX Elbow (02/06/2016 12:00 AM EDT) Narrative RAD - 05/17/2017 11:21 AM EST This exam is for storage only and is auto-finalizing. Kedar Santos MD IMG FILM LIBRARY ORD ERABLES [place], [place] documented in this encounter Visit Diagnoses Not on filedocumented in this encounter Care Teams Assistant Auto Center Manager Relationship Specialty Start Date End Date Valencia Adhikari, [place] [address] [place] [address] PCP - General 04/21/14 07/04/23 documented as of this encounter
--- OUTSIDE RECORDS SUMMARY | 2023-10-31 03:22 | XMS_ITS | Encounter Summary ---
Author Organization [facility] [place] [address] Care Team Providers Care Wrapper Leaf Inspector Name Role Phone None Primary Care Provider Unavailabl e Reason for Visit * Reason Onset Date Comments Advice Only 09/30/2012 Encounter Details Date Type Department Care Team (Late Contact Info) Description 09/30/2012 Telephone Endocrinology at [facility] [place] [phone] Omayra Meredith LPN Advice Only Social History [...] weeks ago and is still [place] [facility] [place] 8 week early) Order to be placed here. If baby discharged within two weeks patient will call to have order faxed to local lab. documented in this encounter Plan of Treatment Upcoming Encounters Date Type Department Care Team (Late st Contact Info) Description 11/08/2023 1:45 PM EDT Appointment Ultrasound at [address] Kelsea Shafer MD [facility] OBSTETRICS [place] [address] 11/08/2023 3:00 PM EDT Routine Obstetrics and Gynecology at [place] [phone] Ab, Lexii Khan, [facility] [place] [address] 05/23/2024 Hospital Encounter Birthing [place] [phone] Maite Malloy MD [facility] OBSTETRICS [place] [address] documented as of this encounter Visit Diagnoses Not on filedocumented in this encounter Care Teams Wrapper Leaf Inspector Relationship Specialty Start Date End Date None None PCP - General 05/08/12 04/20/14 documented as of this encounter
--- OUTSIDE RECORDS SUMMARY | 2023-10-31 03:22 | XMS_ITS | Encounter Summary ---
Author Organization [facility] Address [facility] [place] [address] Care Team Providers Care Engine Tester Name Role Phone None Primary Care Provider Unavailabl e Encounter Details Date Type Department Care Team (Late st Contact Info) Description 09/12/2012 Telephone Obstetrics [place] [address] Valorie Hair MD [facility] DR OBSTETRICS & [place] [address] Social History Tobacco Use Types Packs/Day Years [...] 11/08/2023 1:45 PM EDT Appointment Ultrasound at [place] [phone] Kelsea Shafer MD [facility] OBSTETRICS [place] [address] 11/08/2023 3:00 PM EDT Routine Obstetrics [place] [address] Ab, Lexii Khan, [facility] [place] [address] 05/23/2024 Hospital [place] [address] Maite Malloy MD [facility] OBSTETRICS [place] [address] documented as of this encounter Visit Diagnoses Not on filedocumented in this encounter Care Teams Engine Tester Relationship Specialty Start Date End Date None None PCP - General 05/08/12 04/20/14 documented as of this encounter
--- OUTSIDE RECORDS SUMMARY | 2023-10-31 03:22 | XMS_ITS | Encounter Summary ---
Author Organization [facility] Address [facility] [place] [address] Care Team Providers Care Back Tender Insulation Board Name Role Phone Valencia Adhikari APRN Primary Care Provider [phone] Reason for Visit * Reason Comments Follow-up string check Encounter Details Date Type Department Care Team (Late st Contact Info) Description 04/11/2016 9:20 AM EST Office Visit Obstetrics [place] [phone] Pam Chaidez APRN [facility] OBSTETRICS [place] [address] IUD check up (Primary Dx) Social History [...] in this encounter Progress Notes * Pam Chaidez APRN - 04/11/2016 9:20 AM EST [...] Vulva: No lesions. Normal hair distribution. Vagina: Starr, moist, rugated. Normal discharge noted. No lesions. [...] 11/08/2023 1:45 PM EDT Appointment Ultrasound at [place] [phone] Kelsea Shafer MD [facility] [place]ST[place] [address] 11/08/2023 3:00 PM EDT Routine Obstetrics and Gynecology at [place] [phone] Ab, Lexii Khan, [facility] [place] [address] 05/23/2024 Hospital Encounter Birthing [place] [phone] Maite Malloy MD [facility] OBSTETR[place] [address] documented as of this encounter Visit Diagnoses Diagnosis IUD check up- Primary Surveillance of previously prescribed intrauterine contraceptive device documented in this encounter Care Teams Back Tender Insulation Board Relationship Specialty Start Date End Date Valencia Adhikari APRN [address] [place] [address] PCP - General 04/21/14 07/04/23 documented as of this encounter
--- OUTSIDE RECORDS SUMMARY | 2023-10-31 03:22 | XMS_ITS | Encounter Summary ---
Author Organization [facility] [place] [address] Care Team Providers Care Crossbar Frame Wirer Name Role Phone None Primary Care Provider Unavailabl e Reason for Visit * Reason Onset Date Comments Post Hospital Discharge 09/16/2012 Encounter Details Date Type Department Care Team (Late st Contact Info) Description 09/16/2012 Telephone [place] [address] Eufemia Farias RN Post Hospital Discharge Social [...] Andree who has just been d/c'd from [facility] for labor. 31w3d with EDC October 20. . LMOM. 2nd call to check on Soraaron. Left contact information on machine. documented in this encounter Plan of Treatment Upcoming Encounters Date Type Department Care Team (Late st Contact Info) Description 11/08/2023 1:45 PM EDT Appointment Ultrasound at [place] [phone] Kelsea Shafer MD [facility] OBSTETRICS [place] [address] 11/08/2023 3:00 PM EDT Routine Obstetrics [place] [address] Ab, Lexii Khan, CNJose A [facility] [place] [address] 05/23/2024 Hospital Encounter Birthing [place] [phone] Maite Malloy MD [facility] OBSTETRICS [place] [address] documented as of this encounter Visit Diagnoses Not on filedocumented in this encounter Care Teams Crossbar Frame Wirer Relationship Specialty Start Date End Date None None PCP - General 05/08/12 04/20/14 documented as of this encounter
--- OUTSIDE RECORDS SUMMARY | 2023-10-31 03:23 | XMS_ITS | Encounter Summary ---
Author Organization [facility] [place] [address] Care Team Providers Care Mother'S Helper Name Role Phone None Primary Care Provider Unavailabl e Encounter Details Date Type Department Care Team (Late st Contact Info) Description 05/28/2012 External [place] [phone] Provider, Scanning Social History Tobacco Use Types [...] 11/08/2023 1:45 PM EDT [place] [address] Kelsea Shafer MD [facility] OBSTETRICS [place] [address] 11/08/2023 3:00 PM EDT Routine Obstetrics [place] [address] Ab, Lexii Khan CNM [facility] [place] [address] 05/23/2024 [place] [phone] Maite Malloy MD [facility] OBSTETRICS [place] [address] documented as of this encounter Procedures Procedure Name Priority Date/Time Associated Diagnosis Comments LAB SCAN Routine 05/21/2012 documented in this encounter Results * Scan Doc: Lab (05/21/2012) Scanning Provider MEDIA MGR SCAN EXT O RDR/RSLT documented in this encounter Visit Diagnoses Not on filedocumented in this encounter Care Teams Mother'S Helper Relationship Specialty Start Date End Date None None PCP - General 05/08/12 04/20/14 documented as of this encounter
--- OUTSIDE RECORDS SUMMARY | 2023-10-31 03:23 | XMS_ITS | Encounter Summary ---
Author Organization [facility] [place] [address] Care Team Providers Care Veterinary Surgeon Name Role Phone None Primary Care Provider Unavailabl e Reason for Visit * Reason Onset Date Comments Muscle Pain 06/18/2012 Encounter Details Date Type Department Care Team (Late st Contact Info) Description 06/18/2012 Telephone Obstetrics and Gynecology at [facility] [place] [address] Estelle Ribeiro RN Muscle Pain Social History [...] PM EDT Appointment Ultrasound at [place] [phone] Kelsea Shafer MD [facility] OBSTETRICS [place] [address] 11/08/2023 3:00 PM EDT Routine Obstetrics [place] [address] Ab, Lexii Khan, [facility] [place] [address] 05/23/2024 Hospital [place] [address] Maite Malloy MD [facility] OBSTETRICS AND GYNECOLOGY [place], [place] [phone] documented as of this encounter Visit Diagnoses Not on filedocumented in this encounter Care Teams Veterinary Surgeon Relationship Specialty Start Date End Date None None PCP - General 05/08/12 04/20/14 documented as of this encounter
--- OUTSIDE RECORDS SUMMARY | 2023-10-31 03:23 | XMS_ITS | Encounter Summary ---
Author Organization [facility] [place] [address] Care Team Providers Care Rubber Stamp Assembler Name Role Phone None Primary Care Provider Unavailabl e Reason for Visit * Reason Comments Family History sister with possible LCHAD deficiency Encounter Details Date Type Department Care Team (Late st Contact Info) Description 05/22/2012 10:00 AM EST Office Visit Obstetrics [place] [address] Félix Richardson, [facility] OBSTETRICS & [place] [address] Family history of metabolic disease (Primary Dx); [...] mother provided written authorization to review the [facility] medical records of Andree's sister, Ana Hummel ( 03/27/1999). 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 She then had numerous [...] with written information about LCHAD deficiency from [employer] (www. screening.info), which includes a list of [...] 11/08/2023 1:45 PM EDT Appointment Ultrasound at [place] [phone] Kelsea Shafer MD [facility] OBSTETRICS [place] [address] 11/08/2023 3:00 PM EDT Routine Obstetrics [place] [address] Ab, Lexii Khan, CNM [facility] [place] [address] 05/23/2024 Hospital Encounter [place]thing [place] [phone] Maite Malloy MD [facility] OBSTET[place] [address] documented as of this encounter Visit Diagnoses Diagnosis Family history of metabolic disease- Primary Family history of other endocrine and metabolic diseases Genetic counseling documented in this encounter Care Teams Rubber Stamp Assembler Relationship Specialty Start Date End Date None None PCP - General 05/08/12 04/20/14 documented as of this encounter
--- OUTSIDE RECORDS SUMMARY | 2023-10-31 03:23 | XMS_ITS | Encounter Summary ---
Author Organization [facility] Address [facility] [place] [address] Care Team Providers Care Product Safety Consultant Name Role Phone None Primary Care Provider Unavailabl e Encounter Details Date Type Department Care Team (Late st Contact Info) Description 03/23/2011 Orders [place] [phone] Chloé Santa RN Social History Tobacco Use Types Packs/Day [...] 11/08/2023 1:45 PM EDT [place] [address] Kelsea Shafer MD [facility] OBSTETRICS [place] [address] 11/08/2023 3:00 PM EDT Routine Obstetrics [place] [address] Lexii Berger CNM [facility] [place] [address] 05/23/2024 Hospital [place] [address] Maite Malloy MD [facility] OBSTETRICS [place] [address] documented as of this encounter Visit Diagnoses Not on filedocumented in this encounter Care Teams Product Safety Consultant Relationship Specialty Start Date End Date None None PCP - General 02/23/11 05/09/11 documented as of this encounter
--- OUTSIDE RECORDS SUMMARY | 2023-10-31 03:23 | XMS_ITS | Encounter Summary ---
Author Organization [facility] [place] [address] Care Team Providers Care Blindstitch Hemmer Name Role Phone None Primary Care Provider Unavailabl e Encounter Details Date Type Department Care Team (Latest Contact Info) Description 03/22/2011 12:09 PM EST - 03/22/2011 7:14 PM EST Hospital Encounter [place] [address] Juan Ko MD [facility] [place] [address] Discharge Disposition: Home Social History Tobacco Use [...] calcium supplementation (tums) Phone number for questions: [phone] before 5 PM weekdays [phone] after 5 PM and on weekends/holidays documented [...] on physical exam. ROS: No H/O asthma, PR, stroke, pulmonary embolus or phlebitis. Comprehensive review [...] agrees to proceed. Will sign in through [facility]. Consent is signed. Send copy to Dr. Villalba. documented in this encounter Miscellaneous Notes * Miscellaneous - Provider, Scanning - 03/22/2011 9:20 PM EST * Op Note - Satinder Duncan MD - 03/22/2011 5:12 PM EST [facility] Patient Name: Andree Hummel : [id number] MR#: [id number] Case Date: 03/22/2011 Surgeon: Surgeon(s) and Role: [...] the thyroid gland were obtained using a [employer] Stone Center[employer]x and an HFL38/13-6 broadband linear array transducer. [...] Operative Note Patient Name: Andree Hummel : [id number] MR#: [id number] Case Date: 03/22/2011 Surgeon: Surgeon(s) and Role: [...] 11/08/2023 1:45 PM EDT Appointment Ultrasound at [place] [phone] Kelsea Shafer MD [facility] OBSTETRICS [place] [address] 11/08/2023 3:00 PM EDT Routine Obstetrics [place] [address] Ab, [facility] [address] 05/23/2024 Hospital [place] [address] Maite Malloy MD [facility] OBSTETRICS [place] [address] documented as of this encounter Procedures Procedure [...] 5:13 PM EST) Surgical Pathology Report [id number] ? Location: [facility] The signing pathologist has (i) examined the [...] superior to inferior including enlarged parathyroid; (41-44) personnel representative sections of isthmus; (45-50) serial sections [...] lower (A29). ??4. Twelve benign lymph nodes (0/). ??5. 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 ??6. Incidental intrathyroidal adipose tissue. CR-0 03/28/11 LJT 03/31/11 Verified by: ? Mansoor LIMA, Yessy Guzman ?Pathologist ?(Electronic Signature) The attending pathologist whose signature appears on this report has reviewed all diagnostic slides and has edited the gross and/or microscopic portion of the report in rendering the final pathologic diagnosis. . Comment Correction Note: ??The responsible physician is changed. ??There are NO other changes to the text of this report. Killian Abel, 03/31/11 10:47 [facility] 03/22/2011 5:13 PM EST Juan Ko MD PATHOLOGY/CYTOLOGY ORDERABLES [facility] * Specimen to Pathology (surgical or derm) (03/22/2011 4:33 PM EST) AP Specimen 03/22/2011 4:33 PM EST 03/22/2011 4:33 PM EST Narrative HANNAH SERRANO - 03/22/2011 4:33 PM EST Specimen requisition ordered. ??Separate Pathology report to follow Luis Hester MD PATHOLOGY/CYTOLOGY ORDERABLES HANNAH SERRANO documented in [...] on Sun03/22/11 at 1300, Until Sun03/22/11 at 2137, Day of Surgery (Day of Procedure) 1300 [...] on Sun03/22/11 at 1456, Until Sun03/22/11 at 213, Intra-Operative (Intra-Procedure), Routine 1456 (Given - Provid [...] Patch documented in this encounter Care Teams Blindstitch Hemmer Relationship Specialty Start Date End Date None None PCP - General 02/23/11 05/09/11 documented as of this encounter
--- OUTSIDE RECORDS SUMMARY | 2023-10-31 03:23 | XMS_ITS | Encounter Summary ---
Author Organization [facility] [place] [address] Care Team Providers Care Cathode Builder Name Role Phone Mya Varghese MD Primary Care Provider [phone] Encounter Details Date Type Department Care Team (Late st Contact Info) Description 04/12/2012 Orders Only Obstetrics [place] [address] Estelle Ribeiro RN Hypothyroidism, postsurgical (Primary Dx) [...] 11/08/2023 1:45 PM EDT Appointment Ultrasound at [address]1000 Kelsea Shafer MD [facility] OBSTETRICS [place] [address] 11/08/2023 3:00 PM EDT Routine Obstetrics and Gynecology at [place] [phone] Ab, Lexii C, [facility] [place] [address] 05/23/2024 Hospital [place] [address] Maite Malloy MD [facility] OBSTETRICS [place] [address] documented as of this encounter Visit Diagnoses Diagnosis Hypothyroidism, postsurgical- Primary Postsurgical hypothyroidism documented in this encounter Care Teams Cathode Builder Relationship Specialty Start Date End Date Mya Varghese MD [address] [place] [address] [place] [address] PCP - General 05/10/11 05/07/12 documented as of this encounter
--- OUTSIDE RECORDS SUMMARY | 2023-10-31 03:23 | XMS_ITS | Encounter Summary ---
Author Organization [facility] [place] [address] Care Team Providers Care Boiler Helper Name Role Phone None Primary Care Provider Unavailabl e Reason for Visit * Reason Comments Thyroid Nodule Encounter Details Date Type Department Care Team ([facility] st Contact Info) Description 03/15/2011 11:10 AM EST Office Visit [place] [phone] Jona Dickinson MD [address] [place] [address] Thyroid nodule (Primary Dx) Discharge Disposition: Home [...] of the neck were obtained using a Son[employer]axx and an HFL38/13-6 broadband linear array transducer. [...] 11/08/2023 1:45 PM EDT Appointment [place] [address] Kelsea Shafer MD [facility] OBSTETRICS AND GYNECOLOGY [place], [place] [address] 11/08/2023 3:00 PM EDT Routine Obstetrics [place] [address] Lexii Berger CNM [facility] [address] [place] [phone] 05/23/2024 Hospital [place] [address] Maite Malloy MD [facility] OBSTETRICS [place] [address] documented as of this encounter Visit Diagnoses Diagnosis Thyroid nodule- Primary Nontoxic uninodular goiter documented in this encounter Care Teams Boiler Helper Relationship Specialty Start Date End Date None None PCP - General 02/23/11 05/09/11 documented as of this encounter
--- OUTSIDE RECORDS SUMMARY | 2023-10-31 03:23 | XMS_ITS | Encounter Summary ---
Author Organization [facility] [place] [address] Care Team Providers Care Dynamometer Mechanic Name Role Phone None Primary Care Provider Unavailabl e Encounter Details Date Type Department Care Team (Late st Contact Info) Description 06/12/2012 Notes Only Obstetrics [place] [address] Marita Anders, [facility] DR OBSTETRICS & [place] [address] Social History Tobacco Use Types Packs/Day Years [...] Progress Notes * Marita Anders MSW - 06/12/2012 2:18 PM EST Care Management/Social Work Referral/Contact: Referred by [facility] service for support around substance abuse/mental health. S: I'm a single, unemployed mother. O: Met with patient, Andree (pronounced Sercha), following her US appt. Patient was pleased to have US pictures of her baby, whose gender she does not wish to know. When asked why she thinks she may have been referred to Cabin [employer], patient identified that she is single and [...] baby. Patient stated her mother works at [employer] [facility] [employer]. Patient discussed a variety of plans about where she may live. Andree expressed a desire to leave [place], [place], in order to get away from [...] Patient stated that Bryan has been in [facility] since 2010, so there is no chance he is the father. She stated she is getting back together with her fiance (who will be out of [facility] in July 2012), and he wants to adopt the baby. Patient asked many questions about paternity affidavit, parental rights, paternity testing, and adoption. Attempted to answer most of these, and also provided information on [employer] in [facility], and encouraged patient to seek advice of people who understand the legal implications of paternity, including it desktop support technician, court system, and DV support agencies. Explained [...] she has an upcoming appt. with an sewage disposal worker. Patient stated with this worry, plus her [...] appeared very familiar with community resources in [facility]. She stated she is involved with [employer] and [employer] already, and has food stamps and WIC. [...] scenarios, including living with a friend in [place], moving to [place], [place] or other location in [place] (declined list of transitional housing for women), and moving to [place] to livewith aunt and uncle). Strengths include: Some family support; good knowledge of community resources; has accessed food stamps and WIC, and plans to apply for [place] Medicaid as secondary insurance (has application); utilizes food [employer] at [facility] in [facility]; has stopped using opiates, per her [...] Restrictions option for inpatient stay. LEYDI Vicente, SUPER[employer] documented in this encounter Plan of Treatment Upcoming Encounters Date Type Department Care Team (Late st Contact Info) Description 11/08/2023 1:45 PM EDT [place] [phone] Kelsea Shafer MD [facility] OBSTETRICS AND [place] [address] 11/08/2023 3:00 PM EDT Routine Obstetrics [place] [phone] Lexii Berger CNM [facility] [place] [address] 05/23/2024 Hospital Encounter Birthing [facility] [place] [phone] Maite Malloy MD [facility] OBSTETRICS [place] [address] documented as of this encounter Visit Diagnoses Not on filedocumented in this encounter Care Teams Dynamometer Mechanic Relationship Specialty Start Date End Date None None PCP - General 05/08/12 04/20/14 documented as of this encounter
--- OUTSIDE RECORDS SUMMARY | 2023-10-31 03:23 | XMS_ITS | Encounter Summary ---
Author Organization [facility] Address [facility] [place] [address] Care Team Providers Care Casting Assistant Name Role Phone None Primary Care Provider Unavailabl e Encounter Details Date Type Department Care Team (Latest Contact Info) Description 05/08/2012 10:30 AM EST Office Visit [place] [address] Griffin Wallis III, MD [facility] DR [place] [address] Hypothyroidism (Primary Dx) Discharge Disposition: Home Social [...] of 1.35 with (-) TSI (done at [facility]). She has no symptoms of hypothyroidism now. [...] standing order for monthly TSH levels at [facility], with results to be FAXed to me at [phone]. Lastly, she wanted mt to be sure that Dr. Maite Marks is aware that the local Bicycle Designer requeststhat her care be transferred to Dr. Marks. More than 32 of this 60 minute visit was spent in face to face counseling and discussing the implications of the diagnosis and potential therapeutic approaches as detailed above. documented in this encounter Plan of Treatment Upcoming Encounters Date Type Department Care Team (Late st Contact Info) Description 11/08/2023 1:45 PM EDT Appointment Ultrasound at [place] [phone] Kelsea Shafer MD [facility] OBSTETRICS [place] [address] 11/08/2023 3:00 PM EDT Routine Obstetrics [place] [phone] Ab, Lexii Khan, RAY [facility] [place] [address] 05/23/2024 Hospital [place] [phone] Maite Malloy MD [facility] OBSTETRICS [place] [address] documented as of this encounter Visit Diagnoses Diagnosis Hypothyroidism- Primary Unspecified hypothyroidism documented in this encounter Care Teams Casting Assistant Relationship Specialty Start Date End Date None None PCP - General 05/08/12 04/20/14 documented as of this encounter
--- OUTSIDE RECORDS SUMMARY | 2023-10-31 03:23 | XMS_ITS | Encounter Summary ---
Author Organization [facility] [place] [address] Care Team Providers Care Quality Control Projectionist Name Role Phone None Primary Care Provider Unavailabl e Reason for Visit * Reason Onset Date Comments Medication Refill 05/23/2012 Encounter Details Date Type Department Care Team (Late st Contact Info) Description 05/23/2012 [place] [phone] Griffin Wallis III, MD [facility] [place] [address] Hypothyroidism (Primary Dx) Social History Tobacco Use [...] 11/08/2023 1:45 PM EDT [place] [address] Kelsea Shafer MD [facility] OBSTETRICS [place] [address] 11/08/2023 3:00 PM EDT Routine Obstetrics [place] [address] Ab, Lexii Khan CNM [facility] [place] [address] 05/23/2024 [place] [phone] Maite Malloy MD [facility] OBSTETRICS [place] [address] documented as of this encounter Visit Diagnoses Diagnosis Hypothyroidism- Primary Unspecified hypothyroidism documented in this encounter Care Teams Quality Control Projectionist Relationship Specialty Start Date End Date None None PCP - General 05/08/12 04/20/14 documented as of this encounter
--- OUTSIDE RECORDS SUMMARY | 2023-10-31 03:23 | XMS_ITS | Encounter Summary ---
Author Organization [facility] Address [facility] [place] [address] Care Team Providers Care Special Effects Specialist Name Role Phone None Primary Care Provider Unavailabl e Encounter Details Date Type Department Care Team (Late st Contact Info) Description 03/23/2011 Orders [place] [phone] Chloé Santa RN Social History Tobacco Use [...] 11/08/2023 1:45 PM EDT [place] [address] Kelsea Shafer MD [facility] OBSTETR[place] [address] 11/08/2023 3:00 PM EDT Routine Obstetrics [place] [address] [facility] [place] [address] 05/23/2024 Hospital En[place] [address] Maite Malloy MD [facility] OBSTETR[place] [address] documented as of this encounter Visit Diagnoses Not on filedocumented in this encounter Care Teams Special Effects Specialist Relationship Specialty Start Date End Date None None PCP - General 02/23/11 05/09/11 documented as of this encounter
--- OUTSIDE RECORDS SUMMARY | 2023-10-31 03:23 | XMS_ITS | Encounter Summary ---
Author Organization [facility] Address [facility] [place] [address] Care Team Providers Care Payroll Clerk Name Role Phone None Primary Care Provider Unavailabl e Reason for Referral * Psychiatric (Routine) - Closed Specialty Diagnoses / Procedures Referred By Lamont t Referred To Contact Psychiatry Diagnoses Unspecified high-risk Lalita Carmona MD [facility] DR OBSTETRICS & [place] [address] Yaneth Griffith MD [facility] [place] [address] Referral ID Status Reason Start Date Expiration Date V isits Requested Visits Authorized [id number] Closed Consult, Test & Treat 08/08/2012 02/04/2013 1 1 Reason for Visit * Reason Comments Routine Visit Encounter Details Date Type Department Care Team (Late st Contact Info) Description 08/08/2012 10:00 AM EDT Routine Obstetrics [place] [address] Lalita Carmona MD [facility] DR OBSTETRICS & [place] [address] GA: 26w2d Discharge Disposition: Home Social History [...] 11/08/2023 1:45 PM EDT Appointment [place] [phone] Kelsea Shafer MD [facility] OBSTETRICS [place] [address] 11/08/2023 3:00 PM EDT Routine Obstetrics and [place] [address] Ab, Lexii Khan CNM [facility] [place] [address] 05/23/2024 Hospital Encounter Birthing Betito [facility] [place] [address] Maite Malloy MD [facility] DR OBSTETRICS [place] [address] Scheduled Referrals Name Type Priority Associated Diagnoses [...] EDT) TSH 0.03(L) 0.27 - 4.20 mcIU/mL [facility] Blood specimen (specimen) 08/08/2012 9:29 AM EDT 08/08/2012 9:33 AM EDT Narrative Resulting Agency Comment Spec In Lab Lalita Carmona MD CHEMISTRY ORDERABL ES [facility] * Hemoglobin and Hematocrit, blood (08/08/2012 9:29 AM EDT) Hemoglobin 12.2 11.2 - 15.7 gm/dL [facility] Hematocrit 35.4 34.0 - 45.0 % [facility] Blood specimen (specimen) 08/08/2012 9:29 AM EDT 08/08/2012 9:33 AM EDT Narrative Resulting Agency Comment Spec In Lab Lalita Carmona MD HEMATOLOGY ORDERAB LES Performing Organization Address City/[facility]/ZIP Co de Phone Number [facility] * Glucose 1 Hour Post Prandial (08/08/2012 9:29 AM EDT) Glucose, 1Hr PP 128 mg/dL [facility] Blood specimen (specimen) 08/08/2012 9:29 AM EDT 08/08/2012 9:33 AM EDT Narrative Resulting Agency Comment Spec In Lab Lalita Carmona MD CHEMISTRY ORDERABL ES Performing Organization Address [facility] Co de Phone Number [facility] documented in this encounter Visit Diagnoses Diagnosis Unspecified high-risk - Primary documented in this encounter Care Teams Payroll Clerk Relationship Specialty Start Date End Date None None PCP - General 05/08/12 04/20/14 documented as of this encounter
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
--- OUTSIDE RECORDS SUMMARY | 2023-10-31 03:23 | XMS_ITS | Encounter Summary ---
Author Organization [facility] [place] [address] Care Team Providers Care Fashion Adviser Name Role Phone None Primary Care Provider Unavailabl e Reason for Visit * Reason Onset Date Comments Neck Pain 03/23/2011 Encounter Details Date Type Department Care Team (Late st Contact Info) Description 03/23/2011 Telephone General Surgery at [facility] [place] [address] Chloé Santa RN Neck Pain Social History [...] from Andree who reports having neck pain. [facility] Operative Note Patient Name: Andree Hummel : [id number] MR#: [id number] Case Date: 03/22/2011 Surgeon: Surgeon(s) and Role: [...] 11/08/2023 1:45 PM ED[place] [address] Kelsea Shafer MD [facility] OBSTETRICS [place] [address] 11/08/2023 3:00 PM EDT Routine Obstetrics [place] [address] Ab, Lexii C, CNM [facility] [place] [address] 05/23/2024 Hospital [place] [address] Maite Malloy MD [facility] OBSTETRICS [place] [address] documented as of this encounter Visit Diagnoses Not on filedocumented in this encounter Care Teams Fashion Adviser Relationship Specialty Start Date End Date None None PCP - General 02/23/11 05/09/11 documented as of this encounter
--- OUTSIDE RECORDS SUMMARY | 2023-10-31 03:23 | XMS_ITS | Encounter Summary ---
Author Organization [facility] [place] [address] Care Team Providers Care Quality Assurance Practice Manager Name Role Phone None Primary Care Provider Unavailabl e Encounter Details Date Type Department Care Team (Late st Contact Info) Description 06/12/2012 10:45 AM EST Routine Obstetrics [place] [address] CLINIC, Lalita Bond MD [facility] OBSTETRICS & [place] [address] GA: 18w1d Discharge Disposition: Home Social History [...] PM EDT Appointment Ultrasound at [place] [phone] Kelsea Shafer MD [facility] OBSTETRICS [place] [address] 11/08/2023 3:00 PM EDT Routine Obstetrics and Gynecology at [place] [phone] Ab, Lexii Khan, [facility] [place] [address] 05/23/2024 Hospital Encounter Birthing [place] [phone] Maite Malloy MD [facility] OBSTETRICS [place] [address] documented as of this encounter Results * US OB transvaginal (07/04/2012 3:08 PM EDT) Anatomical Region Laterality Modality Pelvis, Abdomen Ultrasound 07/04/2012 3:08 PM EDT Narrative 07/04/2012 3:20 PM EDT ?OBSTETRICS REPORT ? (Signed Final 07/04/2012 03:20 pm) Patient Info ID: ? [id number] ? : ??[birth year] (22 yrs) Name: ? PREETHI Godoy ?Visit Date: 07/04/2012 03:03 pm ? LOUISE- ? FRANK Performed By Performed By: ?Itzel Lezama RDMS Attending: ? Anca LIMA, Phylicia Reyes Referred By: ? LALITA QUAN MD Service(s) Provided UOBTV - Viability - Cervical Length - Transvaginal - ??[id number] [id number] Indications cervical length Evaluation Num Of Fetuses: [...] to participate in the care of PREETHI WALLISCARRIEFRANK. Please do not hesitate to call if you have any questions. ?Phylicia March MD Electronically Signed Final Report ?? 07/04/2012 03:20 pm Procedure Note Phylicia March MD - 07/04/2012 OBSTETRICS REPORT (Signed Final 07/04/2012 03:20 pm) Patient Info ID: [id number] : [birth year] (22 yrs) Name: PREETHI Godoy Visit Date: 07/04/2012 03:03 pm MARIO MARIE Performed By Performed By: Itzel Lezama RDMS Attending: Phylicia March MD. Referred By: LALITA QUAN MD Service(s) Provided UOBTV - Viability - Cervical Length - Transvaginal - [id number] Indications cervical length Evaluation Num Of Fetuses: [...] to participate in the care of PREETHI WALLISVishalFRANK. Please do not hesitate to call if [...] of documented in this encounter Care Teams Quality Assurance Practice Manager Relationship Specialty Start Date End Date None None PCP - General 05/08/12 04/20/14 documented as of this encounter
--- OUTSIDE RECORDS SUMMARY | 2023-10-31 03:23 | XMS_ITS | Encounter Summary ---
Author Organization [facility] Address [facility] [place] [address] Care Team Providers Care Grief Counsellor Name Role Phone None Primary Care Provider Unavailabl e Reason for Visit * Reason Comments Vaginal Pain Encounter Details Date Type Department Care Team (Latest Contact Info) Description 08/04/2012 5:07 AM EDT - 08/04/2012 11:51 AM EDT Hospital Encounter Birthing [facility] [place] [address] Maite Pearce MD [facility] OBSTETRICS [place] [address] Discharge Disposition: Home Social History Tobacco Use [...] Dumas RN - 08/04/2012 11:45 AM EDT [facility] [place] [address] Birthing [facility] to contact OB doctor [phone] to contact family doctor to contact broadcast program director Preethi Hummel [email or web address] 11:42 AM [facility] Birthing [facility] to contact OB doctor [facility] to [place] [address] to contact family doctor Following your visit to [facility] Triage [facility] Birthing [facility] to contact OB doctor [facility] to [place] [address] to contact family doctor [facility] Provider: GESTATION - Less [...] a vaginal exam in your doctor's or broadcast program director's office you should not bleed as much [...] dehydration Keep your regularly scheduled doctor or broadcast program director appointment NEW MEDICATIONS: SPECIAL INSTRUCTIONS/FOLLOW-UP CARE: documented [...] 7:44 AM EDT OB Triage Note: ID: Perethi Hummel is a 22 y.o. at 25w5d [...] 11/08/2023 1:45 PM EDT [place] [address] Kelsea Shafer MD [facility] [place] [address] 11/08/2023 3:00 PM EDT Routine Obstetrics and Gynecology at [facility] [place] [address] Ab, Lexii Khan CNM [facility] [place] [address] 05/23/2024 Hospital Encounter Birthing [facility] [place] [address] Maite Malloy MD [facility] OBSTETRICS [place] [address] documented as of this encounter Procedures Procedure [...] Final 08/05/2012 02:16 pm) Patient Info ID: ?[id number] ?: ??[birth year] (22 yrs) Name: ?PREETHI Godoy ? Visit Date: 08/04/2012 10:21 am ?LOUISE- ?FRANK Performed By Performed By: ?Alicia Redding RDMS Attending: ? Selina LIMA, Maite Wilson Referred By: ? KATELYNN BALTAZAR MD Service(s) Provided UOBFOL - Efw - Growth - Reevaluation - [place] ?[id number] - [id number] UOBTV - Viability - Cervical Length - Transvaginal - ??[id number] Indications 22yo with history of delivery, now [...] participate in the care of PREETHI Godoy ESTEPHANIE. Please do not hesitate to call if you have any questions. ? Maite Pearce MD Electronically Signed Final Report ?? 08/05/2012 02:16 pm Procedure Note Maite Pearce MD - 08/05/2012 OBSTETRICS REPORT (Signed Final 08/05/2012 02:16 pm) Patient Info ID: [id number] : [birth year] (22 yrs) Name: PREETHI Godoy Visit Date: 08/04/2012 10:21 am MARIO MARIE Performed By Performed By: Alicia Redding [facility] Attending: Maite Pearce MD Referred By: KATELYNN BALTAZAR MD Service(s) Provided UOBFOL - Efw - Growth - Reevaluation - [place] [id number] - [id number] UOBTV - Viability - Cervical Length - Transvaginal - [id number] Indications 22yo with history of delivery, now [...] MAITE PEARCE ? PREETHI Godoy ? MR#: [id number] ?LOC: ??[facility] ? /Sex: ?? 2 (22 years), ? Female ? PROCEDURE: Urine Culture ?SOURCE: U CC ? COLLECTED: 08/04/2012 09:03 ? STARTED: 08/04/2012 09:19 ? FINAL REPORT ? Final Report ? Verified: 07:46 ? No growth (Less than 1,000 cfu/ml). ? ____ HANNAH HARKINSBRINAIUM Urine specimen obtained by clean catch procedure (specimen) 08/04/2012 9:03 AM EDT 08/04/2012 9:19 AM EDT Narrative Resulting Agency Comment Spec In Lab Maite Pearce MD MICROBIOLOGY - GENER AL ORDERABLES HANNAH POTTERIUM * (ABNORMAL) Rapid Qual Drug Screen, Urine ([facility]) (08/04/2012 9:03 AM EDT) TIFFANIE Marijuana Metabolites Scr None Detected None Detected CERNER MILLENNIUM Comment: Please note that as of 04/12/2012 the testing device changed to the PROFILE-V Fluency Drugs of Abuse Test System. The marijuana metabolites screen detects the THC Metabolite (53-rti-2-carboxy- 9-THC) ??at concentrations >50 ng/mL. Be aware [...] In Lab Maite Pearce MD URINE ORDERABLES [facility] TORINENNIUM * (ABNORMAL) Urinalysis without microscopic (08/04/2012 9:03 [...] mcL CERNER MILLENNIUM Appearance UA Hazy(A) Clear [facility] Spec [place] UA 1.013 1.002 - 1.030 CERNER MILLENNIUM Color UA Yellow Yellow [facility] TORINENNIUM Urine specimen (specimen) 08/04/2012 9:03 AM EDT 08/04/2012 9:16 AM EDT Narrative Resulting Agency Comment Spec In Lab Maite Pearce MD URINE ORDERABLES [facility] * Fibronectin (08/04/2012 7:10 AM EDT) Fibronect Neg CERN ER MILLENNIUM Comment: Results may be invalid if sample [...] Lab Maite Pearce MD BODY FLUIDS AND STOO LS ORDERABLES [facility] documented in this encounter Visit Diagnoses Not on filedocumented in this encounter Care Teams Grief Counsellor Relationship Specialty Start Date End Date None None PCP - General 05/08/12 04/20/14 documented as of this encounter
--- OUTSIDE RECORDS SUMMARY | 2023-10-31 03:23 | XMS_ITS | Encounter Summary ---
Author Organization [facility] [place] [address] Care Team Providers Care Chief Data Officer Name Role Phone None Primary Care Provider Unavailabl e Reason for Visit * Reason Onset Date Comments Advice Only 08/08/2012 Encounter Details Date Type Department Care Team (Late st Contact Info) Description 08/08/2012 Telephone Endocrinology at [facility] [place] [phone] Omayra Meredith LPN Advice Only Social History [...] that Rx go to [facility] Yusuf in [facility] documented in this encounter Plan of Treatment Upcoming Encounters Date Type Department Care Team (Late st Contact Info) Description 11/08/2023 1:45 PM EDT Appointment Ultrasound at [place] [phone] Kelsea Shafer MD [facility] OBSTETRICS [place] [address] 11/08/2023 3:00 PM EDT Routine Obstetrics [place] [phone] Ab, Lexii Khan CNM [facility] [place] [address] 05/23/2024 [facility] [phone] Maite Malloy MD [facility] OBSTETRICS [place] [address] documented as of this encounter Visit Diagnoses Not on filedocumented in this encounter Care Teams Chief Data Officer Relationship Specialty Start Date End Date None None PCP - General 05/08/12 04/20/14 documented as of this encounter
--- OUTSIDE RECORDS SUMMARY | 2023-10-31 03:23 | XMS_ITS | Encounter Summary ---
Author Organization [facility] Address [facility] [place] [address] Care Team Providers Care Hand Presser Name Role Phone None Primary Care Provider Unavailabl e Encounter Details Date Type Department Care Team (Latest Contact Info) Description 03/29/2011 - 03/29/2011 11:59 PM EST Hospital Encounter [place] [address] Kedar Santos MD [facility] [place] [address] Discharge Disposition: Home Social History Tobacco Use [...] 11/08/2023 1:45 PM EDT Appointment [place] [phone] Kelsea Shafer MD [facility] [place] [address] 11/08/2023 3:00 PM EDT Routine Obstetrics [place] [address] Ab, Lexii Khan CNM [facility] [place] [address] 05/23/2024 Hospital [place] [phone] Maite Malloy MD [facility] [place] [address] documented as of this encounter Procedures Procedure Name Priority Date/Time Associated Diagnosis Comments FILM LIBRARY STORAGE ONLY DX SHOULDER Routine 03/29/2011 12:00 AM EST documented in this encounter Results * Film Library- Storage Only DX Shoulder (03/29/2011 12:00 AM EST) Narrative [facility] - 05/17/2017 11:29 AM EST This exam is for storage only and is auto-finalizing. Kedar Santos MD IMG FILM LIBRARY ORD ERABLES [place], [place] documented in this encounter Visit Diagnoses Not on filedocumented in this encounter Care Teams Hand Presser Relationship Specialty Start Date End Date None None PCP - General 02/23/11 05/09/11 documented as of this encounter
--- OUTSIDE RECORDS SUMMARY | 2023-10-31 03:23 | XMS_ITS | Encounter Summary ---
Author Organization [facility] [place] [address] Care Team Providers Care Laser Beam Cutter Name Role Phone None Primary Care Provider Unavailabl e Encounter Details Date Type Department Care Team (Late st Contact Info) Description 03/22/2011 2:03 PM EST Anesthesia [place] [address] Anatoly Ibarra MD [address] [place] [address] Magalie Suarez [facility] DR [place] [address] Anesthesia Record Procedure Summary Procedure Name Responsible [...] and consented by patient. Plan discussed with [employer]. documented in this encounter Plan of Treatment Upcoming Encounters Date Type Department Care Team (Late st Contact Info) Description 11/08/2023 1:45 PM EDT [place] [address] Kelsea Shafer MD [facility] OBSTETRICS [place] [address] 11/08/2023 3:00 PM EDT Routine Obstetrics [place] [phone] Ab, Lexii Khan CNM [facility] [place] [address] 05/23/2024 Hospital Encounter [place] [phone] Maite Malloy MD [facility] OBSTETRICS [place] [address] documented as of this encounter Visit Diagnoses Not on filedocumented in this encounter Care Teams Laser Beam Cutter Relationship Specialty Start Date End Date None None PCP - General 02/23/11 05/09/11 documented as of this encounter
--- OUTSIDE RECORDS SUMMARY | 2023-10-31 03:23 | XMS_ITS | Encounter Summary ---
Author Organization [facility] Address [facility] [place] [address] Care Team Providers Care Income Tax Return Preparer Name Role Phone None Primary Care Provider Unavailabl e Encounter Details Date Type Department Care Team (Late st Contact Info) Description 04/05/2011 Orders Only [place] [phone] Marlo Ko MD [facility] [place] [address] Social History Tobacco Use Types Packs/Day Years [...] 11/08/2023 1:45 PM EDT Appointment [place] [address] Kelsea Shafer MD [facility] OBSTETRICS [place] [address] 11/08/2023 3:00 PM EDT Routine Obstetrics [place] [address] Ab, Lexii Khan CNM [facility] [address] [place] [id number] 05/23/2024 Hospital Encounter Birthing [facility]ito [facility] [place] [phone] Maite Malloy MD [facility] OBSTETRICS [place] [address] documented as of this encounter Visit Diagnoses Not on filedocumented in this encounter Care Teams Income Tax Return Preparer Relationship Specialty Start Date End Date None None PCP - General 02/23/11 05/09/11 documented as of this encounter
--- OUTSIDE RECORDS SUMMARY | 2023-10-31 03:23 | XMS_ITS | Encounter Summary ---
Author Organization [facility] Address [facility] [place] [address] Care Team Providers Care Merit System Director Name Role Phone None Primary Care Provider Unavailabl e Reason for Referral * Psychiatric (Routine) - Closed Specialty Diagnoses / Procedures Referred By Lamont t Referred To Contact Psychiatry Diagnoses Unspecified high-risk Lalita Carmona MD [facility] DR OBSTETRICS [place] [address] Yaneth Griffith MD [facility] [place] [address] Referral ID Status Reason Start Date Expiration Date V isits Requested Visits Authorized [id number] Closed Consult, Test & Treat 07/19/2012 01/15/2013 1 1 Reason for Visit * Reason Comments Routine Visit Encounter Details Date Type Department Care Team (Late st Contact Info) Description 07/19/2012 11:15 AM EDT Routine Obstetrics [place] [address] Lalita Carmona MD [facility] DR OBSTETRICS [place] [address] GA: [id number] Discharge Disposition: Home Social History [...] (if applicable) along with the Guide to [place] was given to the patient. The materials were discussed and the patient was encouraged to read the information and direct questions to the provider. documented in this encounter Plan of Treatment Upcoming Encounters Date Type Department Care Team (Late st Contact Info) Description 11/08/2023 1:45 PM EDT [place] [address] Kelsea Shafer MD [facility] DR OBSTETRICS [place] [address] 11/08/2023 3:00 PM EDT Routine Obstetrics [place] [address] Lexii Berger CNM [facility] [address] [place] [address] 05/23/2024 Hospital Encounter Birthing [facility] [place] [address] Maite Malloy MD [facility] OBSTETRICS [place] [address] Scheduled Referrals Name Type Priority Associated Diagnoses Order Schedule Referral to Psychiatry Outpatient Referral Routine Unspecified high-risk Ordered: 07/19/2012 documented as of this encounter Results * (ABNORMAL) TSH (08/08/2012 9:29 AM EDT) TSH 0.03(L) 0.27 - 4.20 mcIU/mL [facility] Blood specimen (specimen) 08/08/2012 9:29 AM EDT 08/08/2012 9:33 AM EDT Narrative Resulting Agency Comment Spec In Lab Lalita Carmona MD CHEMISTRY ORDERABL ES Performing Organization Address [facility] Co de Phone Number [facility] * Hemoglobin and Hematocrit, blood (08/08/2012 9:29 AM EDT) Hemoglobin 12.2 11.2 - 15.7 gm/dL [facility] Hematocrit 35.4 34.0 - 45.0 % [facility] Blood specimen (specimen) 08/08/2012 9:29 AM EDT 08/08/2012 9:33 AM EDT Narrative Resulting Agency Comment Spec In Lab Lalita Carmona MD HEMATOLOGY ORDERAB LES [facility] * Glucose 1 Hour Post Prandial (08/08/2012 9:29 AM EDT) Glucose, 1Hr PP 128 mg/dL [facility] Blood specimen (specimen) 08/08/2012 9:29 AM EDT 08/08/2012 9:33 AM EDT Narrative Resulting Agency Comment Spec In Lab Lalita Carmona MD CHEMISTRY ORDERABL ES [facility] documented in this encounter Visit Diagnoses Diagnosis Unspecified high-risk - Primary documented in this encounter Care Teams Merit System Director Relationship Specialty Start Date End Date None None PCP - General 05/08/12 04/20/14 documented as of this encounter
--- OUTSIDE RECORDS SUMMARY | 2023-10-31 03:23 | XMS_ITS | Encounter Summary ---
Author Organization [facility] [place] [address] Care Team Providers Care Master Sheet Clerk Name Role Phone None Primary Care Provider Unavailabl e Reason for Visit * Reason Comments Routine Visit Encounter Details Date Type Department Care Team (Latest Contact Info) Description 07/04/2012 4:15 PM EDT Routine Obstetrics [place] [address] Walt Bay MD [facility] DR OBSTETRICS & [place] [address] GA: [id number] Discharge Disposition: Home Social History [...] Reviewed causes of diastasis; recommendations. GTT at [facility]; slip given. RTC 2 weeks for cervical length. If normal length, no further surveillance. documented in this encounter Plan of Treatment Upcoming Encounters Date Type Department Care Team (Late st Contact Info) Description 11/08/2023 1:45 PM EDT Appointment Ultrasound at [place] [phone] Kelsea Shafer MD [facility] OBSTETRICS [place] [address] 11/08/2023 3:00 PM EDT Routine Obstetrics [place] [address] Ab, Lexii Khan, CNM [facility] [place] [address] 05/23/2024 [place] [address] Maite Malloy MD [facility] OBSTETRICS AND [place] [address] documented as of this encounter Visit Diagnoses Diagnosis Migraine- Primary Migraine, unspecified, without mention of intractable migraine without mention of status migrainosus , supervision of, high-risk Unspecified high-risk documented in this encounter Care Teams Master Sheet Clerk Relationship Specialty Start Date End Date None None PCP - General 05/08/12 04/20/14 documented as of this encounter
--- OUTSIDE RECORDS SUMMARY | 2023-10-31 03:23 | XMS_ITS | Encounter Summary ---
Author Organization [facility] Address [facility] [place] [address] Care Team Providers Care Spinning Mule Operator Name Role Phone None Primary Care Provider Unavailabl e Encounter Details Date Type Department Care Team (Late st Contact Info) Description 08/03/2012 Telephone Obstetrics [place] [address] Mely Klein MD [facility] DR OBSTETRICS [place] [address] Social History Tobacco Use Types Packs/Day Years [...] she can or she may go to [facility] for initial evaluation because she lives so far away, but she will be seen today. documented in this encounter Plan of Treatment Upcoming Encounters Date Type Department Care Team (Late st Contact Info) Description 11/08/2023 1:45 PM EDT Appointment Ultrasound at [place] [phone] Kelsea Shafer MD [facility] [place] [address] 11/08/2023 3:00 PM EDT Routine Obstetrics [place] [address] Ab, Lexii Khan CNM [facility] [place] [address] 05/23/2024 Hospital [place] [address]1000 Maite Malloy MD [facility] [place] [address] documented as of this encounter Visit Diagnoses Not on filedocumented in this encounter Care Teams Spinning Mule Operator Relationship Specialty Start Date End Date None None PCP - General 05/08/12 04/20/14 documented as of this encounter
--- OUTSIDE RECORDS SUMMARY | 2023-10-31 03:23 | XMS_ITS | Encounter Summary ---
Author Organization [facility] [place] [address] Care Team Providers Care Topographical Engineer Name Role Phone None Primary Care Provider Unavailabl e Reason for Visit * Reason Onset Date Comments Results 06/04/2012 Encounter Details Date Type Department Care Team (Late st Contact Info) Description 06/04/2012 Telephone Endocrinology at [facility] [place] [address]-1000 Omayra Meredith LPN Results Social History Tobacco [...] Rx is needed Rx to go to [facility] +++++++++++++++++++ Well, let's add 50 mcg each day (to total dose of 300 mcg/day. Thanks, Arie Called patient at which time above [...] Rx is needed Rx to go to [facility] documented in this encounter Plan of Treatment Upcoming Encounters Date Type Department Care Team (Late st Contact Info) Description 11/08/2023 1:45 PM EDT Appointment Ultrasound at [place] [phone] Kelsea Shafer MD [facility] OBSTETRICS [place] [address] 11/08/2023 3:00 PM EDT Routine Obstetrics [place] [address] Ab, Lexii C, CNM [facility] [place] [address] 05/23/2024 Hospital Encounter Birthing [place] [phone] Maite Malloy MD [facility] OBSTETRICS AND GYNECOLOGY [place], [place] [phone] documented as of this encounter Visit Diagnoses Not on filedocumented in this encounter Care Teams Topographical Engineer Relationship Specialty Start Date End Date None None PCP - General 05/08/12 04/20/14 documented as of this encounter
--- OUTSIDE RECORDS SUMMARY | 2023-10-31 03:23 | XMS_ITS | Encounter Summary ---
Author Organization [facility] [place] [address] Care Team Providers Care Exhaust Worker Name Role Phone None Primary Care Provider Unavailabl e Encounter Details Date Type Department Care Team (Late st Contact Info) Description 05/29/2012 External Results Obstetrics [place] [phone] Myles Irwin, RN Social History Tobacco Use [...] 11/08/2023 1:45 PM EDT [place] [address] [facility] [place] [address] 11/08/2023 3:00 PM EDT Routine Obstetrics [place] [address]1000 Lexii Berger CNM [facility] [place] [address] 05/23/2024 Hospital Encounter Birthing [place] [facility] [place] [address] Maite Malloy MD [facility] DR [place] [address] documented as of this encounter Procedures Procedure Name Priority Date/Time Associated Diagnosis Comments TSH Routine 05/21/2012 INITIAL EXTERNAL RESULTS PANEL Routine 05/06/2012 documented in this encounter Results * (ABNORMAL) TSH (05/21/2012) TSH 2.42([facility]) Blood specimen (specimen) 05/21/2012 Griffin Wallis III, MD CHEMISTRY ORDER AMANDA * (ABNORMAL) Initial External Lab Panel (05/06/2012) ABORH Type A+([facility]) Ab Screen Interp Positive( EXTERNAL/ [...] 3 hour Oral Glucose Dose 05/06/2012 Keith Barrett CNM POINT OF CARE TEST O RDERABLES documented in this encounter Visit Diagnoses Not on filedocumented in this encounter Care Teams Exhaust Worker Relationship Specialty Start Date End Date None None PCP - General 05/08/12 04/20/14 documented as of this encounter
--- OUTSIDE RECORDS SUMMARY | 2023-10-31 03:23 | XMS_ITS | Encounter Summary ---
Author Organization [facility] [place] [address] Care Team Providers Care Lead Sprinkler Name Role Phone None Primary Care Provider Unavailabl e Encounter Details Date Type Department Care Team (Late st Contact Info) Description 03/22/2011 2:28 PM EST - 03/22/2011 4:56 PM EST Surgery [place] [address] Juan Ko MD [facility] [place] [address] THYROIDECTOMY, FOR MALIGNANCY, LIMITED NECK DISSECTION (WRVU [...] calcium supplementation (tums) Phone number for questions: [phone] before 5 PM weekdays [phone] after 5 PM and on weekends/holidays documented [...] the thyroid gland were obtained using a SonoSiSkycrossaxx and an HFL38/13-6 broadband linear array transducer. [...] on physical exam. ROS: No H/O asthma, [place], stroke, pulmonary embolus or phlebitis. Comprehensive review [...] agrees to proceed. Will sign in through [facility]. Consent is signed. Send copy to Dr. Villalba. documented in this encounter Miscellaneous Notes * Miscellaneous - Provider, Scanning - 03/22/2011 9:20 PM EST * Op Note - Satinder Duncan MD - 03/22/2011 5:12 PM EST [facility] Operative Note Patient Name: Andree Hummel : [id number] MR#: [id number] Case Date: 03/22/2011 Surgeon: Surgeon(s) and Role: [...] Operative Note Patient Name: Andree Hummel : [id number] MR#: [id number] Case Date: 03/22/2011 Surgeon: Surgeon(s) and Role: [...] PM EDT Appointment Ultrasound at [place] [phone] Kelsea Shafer MD [facility] OBSTETRICS [place] [address] 11/08/2023 3:00 PM EDT Routine Obstetrics [place] [phone] AbLexii, [facility] [place] [address] 05/23/2024 Hospital [place] [phone] Maite Malloy MD [facility] OBSTETRICS [place] [address] documented as of this encounter Procedures Procedure [...] 5:13 PM EST) Surgical Pathology Report [id number] ? Location: [facility] The signing pathologist has (i) [...] superior to inferior including enlarged parathyroid; (41-44) financial sales representative sections of isthmus; (45-50) serial [...] this report. Killian Abel, 03/31/11 10:47 [facility] 03/22/2011 5:13 PM EST Juan Ko MD PATHOLOGY/CYTOLOGY ORDERABLES [facility] * Specimen to Pathology (surgical or derm) [...] at 213, Intra-Operative (Intra-Procedure), Routine Given 03/22/2011 2:56 PM [...] Day of Surgery (Day of Procedure) New 03/22/2011 1:00 PM EST 1,000 mLs 100 [...] 1345 (Due)1715 (New Bag - Provider: Bhumika Hurtado, TRE) PRN Medication Order 03/20/2011 03/21/2011 03/22/2011 BUpivacaine-epiNEPHrine [...] mcg over one hour., PACU Recovery, Routine 171 (Given - Provid er: Bhumika Hurtado RN)172 (Given - Provider: Bhumika Hurtado, TRE)1745 (Given - Provider: Bhumika Hurtado RN) hydroCODone-acetaminophen (VICODIN) 5-500 mg per tablet 1-2 tablet 1-2 tablet, Oral, EVERY 6 HOURS PRN, Starting on Sun03/22/11 at 1714, Until Sun03/22/11 at 2138, Pain, Maximum dose of acetaminophen is 4000 mg from all sources in 24 hours., Routine 1747 (Given - Provid er: Bhumika Hurtado RN) promethazine (PHENERGAN) injection 6.25 mg (COMPLETED) 6.25 mg, Intravenous, ONCE PRN, Nausea, Starting on Sun03/22/11 at 1714, 1 dose, Until Sun03/22/11 at 1723, Dilute in 20 mL sodium chloride 0.9% and administer through a free flowing IV. Usual dose range 0.25-0.5 mg/kg/dose to a maximum of 25 mg/dose, PACU Recovery 172 (Given - Provid er: Bhumika Hurtado RN) [...] Patch documented in this encounter Care Teams Lead Sprinkler Relationship Specialty Start Date End Date None None PCP - General 02/23/11 05/09/11 documented as of this encounter
--- OUTSIDE RECORDS SUMMARY | 2023-10-31 03:23 | XMS_ITS | Encounter Summary ---
Author Organization [facility] Address [facility] [place] [address] Care Team Providers Care Ancillary Specialist Name Role Phone None Primary Care Provider Unavailabl e Encounter Details Date Type Department Care Team (Late st Contact Info) Description 08/04/2012 Telephone Obstetrics [place] [address] Mely Klein MD [facility] DR OBSTETRICS & [place] [address] Social History Tobacco Use Types Packs/Day Years [...] PM EDT Appointment Ultrasound at [place] [phone] Kelsea Shafer MD [facility] OBSTETRICS [place] [address] 11/08/2023 3:00 PM EDT Routine Obstetrics [place] [address] Ab, Lexii Khan, [place] [address] 05/23/2024 Hospital En[place] [address] Maite Malloy MD [facility] OBSTETRICS [place] [address] documented as of this encounter Visit Diagnoses Not on filedocumented in this encounter Care Teams Ancillary Specialist Relationship Specialty Start Date End Date None None PCP - General 05/08/12 04/20/14 documented as of this encounter
--- OUTSIDE RECORDS SUMMARY | 2023-10-31 03:23 | XMS_ITS | Encounter Summary ---
Author Organization [facility] [place] [address] Care Team Providers Care Design Coordinator Name Role Phone None Primary Care Provider Unavailabl e Reason for Visit * Reason Onset Date Comments Medication Refill 08/08/2012 Encounter Details Date Type Department Care Team (Late st Contact Info) Description 08/08/2012 [place] [phone] Griffin Wallis III, MD [facility] DR [place] [address] Hypothyroidism (Primary Dx) Social History Tobacco Use [...] 11/08/2023 1:45 PM EDT [place] [address] Kelsea Shafer MD [facility] OBSTETRICS [place] [address] 11/08/2023 3:00 PM EDT Routine Obstetrics [place] [address] Ab, Lexii Khan CNM [facility] [place] [address] 05/23/2024 Hospital [place] [address]-1000 Maite Malloy MD [facility] OBSTETRICS AND [place] [address] documented as of this encounter Visit Diagnoses Diagnosis Hypothyroidism- Primary Unspecified hypothyroidism documented in this encounter Care Teams Design Coordinator Relationship Specialty Start Date End Date None None PCP - General 05/08/12 04/20/14 documented as of this encounter
--- OUTSIDE RECORDS SUMMARY | 2023-10-31 03:23 | XMS_ITS | Encounter Summary ---
Author Organization [facility] [place] [address] Care Team Providers Care Client Services Associate Name Role Phone None Primary Care Provider Unavailabl e Reason for Visit * Reason Comments Establish Care Encounter Details Date Type Department Care Team (Latest Contact Info) Description 05/22/2012 9:30 AM EST Initial [place]stetrics [place] [address] Walt Briseno MD [facility] DR OBSTETRICS & [place] [address] GA: 15w1d Discharge Disposition: Home Social History [...] in this encounter Progress Notes * Walt Briseno MD - 05/22/2012 11:48 AM EST The patient presents for initial care visit, as 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 She is also surgically hypothyroid, and is follwed by Dr. Wallis here at [facility]. The plan is to keep TSH below 2.5; monthly TSH is ordered at [facility]. The patient's mother is an RN at [employer], and occasionally works float on the birthing [...] the Estuardo antigen; it becomes expressed in vest maker. There is no risk of hemolytic disease [...] continue to have blood tests monthly in [facility]. Given Your Journal booklet, DVD on . Will need to do QUAD. 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 documented in this encounter Plan of Treatment Upcoming Encounters Date Type Department Care Team (Late st Contact Info) Description 11/08/2023 1:45 PM EDT Appointment Ultrasound at [place] [phone] Kelsea Shafer MD [facility] OBSTET[place] [address] 11/08/2023 3:00 PM EDT Routine [place]stetrics [place] [address] Ab, Lexii Khan, [place] [address] 05/23/2024 Hospital Encounter Birthing [facility] [place] [phone] Maite Malloy MD [facility] [place] [address] documented as of this encounter Results * US OB Targeted Morphology (06/12/2012 10:55 AM EST) Anatomical Region Laterality Modality Pelvis, Abdomen Ultrasound 06/12/2012 10:5 5 AM EST Narrative 06/12/2012 11:08 AM EST ?OBSTETRICS REPORT ? (Signed Final 06/12/2012 11:07 am) Patient Info ID: ? [id number] ? : ??[birth year] (21 yrs) Name: ? PREETHI Godoy ?Visit Date: 06/12/2012 10:49 am ? LOUISE- ? FRANK Performed By Performed By: ?Itzel Lezama RDMS Attending: ? Mathew LIMA, Lalita Diop Referred By: ? E MELANY BRISENO MD Service(s) Provided [facility] - Targeted Morphology - Genetics - ? [id number] UOBTV - Viability - Cervical Length - Transvaginal - ??[id number] Indications hypothyroid; possible history of 20 week [...] Tract: ?Visualized L Outflow Tract: ?Visualized Cardiac [place]: ? Visualized Diaphragm: ?Visualized Abdomen Ventral Wall: [...] to participate in the care of PREETHI WALLISELLYN. Please do not hesitate to call if you have any questions. ?Lalita Carmona MD Electronically Signed Final Report ?? 06/12/2012 11:07 am Procedure Note Lalita Carmona MD - 06/12/2012 OBSTETRICS REPORT (Signed Final 06/12/2012 11:07 am) Patient Info ID: [id number] : [birth year] (21 yrs) Name: PREETHI Godoy Visit Date: 06/12/2012 10:49 am MARIO MARIE Performed By Performed By: Itzel Lezama RDMS Attending: Lalita Carmona MD Referred By: Walt BRISENO MD Service(s) Provided [facility] - Targeted Morphology - Genetics - [id number] UOBTV - Viability - Cervical Length - Transvaginal - 67130 [id number] Indications hypothyroid; possible history of 20 week [...] Tract: Visualized L Outflow Tract: Visualized Cardiac [place]: Visualized Diaphragm: Visualized Abdomen Ventral Wall: Visualized [...] to participate in the care of PREETHI WALLISFRANK. Please do not hesitate to call if you have any questions. Lalita Carmona MD Electronically Signed Final Report 06/12/2012 11:07 am E Melany Briseno MD IMG US OB ORDERAB LES documented in this encounter Visit Diagnoses Diagnosis , supervision of, high-risk- Primary Unspecified high-risk , supervision of, high-risk Unspecified high-risk documented in this encounter Care Teams Client Services Associate Relationship Specialty Start Date End Date None None PCP - General 05/08/12 04/20/14 documented as of this encounter
--- OUTSIDE RECORDS SUMMARY | 2023-10-31 03:23 | XMS_ITS | Encounter Summary ---
Author Organization [facility] [place] [address] Care Team Providers Care Route Rider Supervisor Name Role Phone None Primary Care Provider Unavailabl e Encounter Details Date Type Department Care Team (Latest Contact Info) Description 07/04/2012 1:49 PM EDT - 07/04/2012 11:59 PM EDT Hospital Encounter Ultrasound at [facility] [place] [phone] History of loss in prior , currently [...] 11/08/2023 1:45 PM EDT Appointment Ultrasound at [place] [phone] Kelsea Shafer MD [facility] OBSTETRICS [place] [address] 11/08/2023 3:00 PM EDT Routine Obstetrics and Gynecology at [place] [phone] Lexii Berger CNM [facility] [place] [address] 05/23/2024 Hospital Encounter Birthing [place] [phone] Maite Malloy MD [facility] OBSTETRICS [place] [address] documented as of this encounter Procedures Procedure [...] 07/04/2012 03:20 pm) Patient Info ID: ? [id number] ? : ??[birth year] (22 yrs) Name: ? IDAURVASHI Walt ?Visit Date: 07/04/2012 03:03 pm ? LOUISE- ? FRANK Performed By Performed By: ?Itzel Lezama RDMS Attending: ? Anca LIMA, Phylicia Reyes Referred By: ? LALITA QUAN MD Service(s) Provided [facility] - Viability - Cervical Length - Transvaginal - ??[id number] [phone] Indications cervical length Evaluation Num Of Fetuses: [...] to participate in the care of PREETHI WHITINGLISA. Please do not hesitate to call if you have any questions. ?Phylicia March MD Electronically Signed Final Report ?? 07/04/2012 03:20 pm Procedure Note Phylicia March MD - 07/04/2012 OBSTETRICS REPORT (Signed Final 07/04/2012 03:20 pm) Patient Info ID: [id number] : [birth year] (22 yrs) Name: PREETHI Godoy Visit Date: 07/04/2012 03:03 pm MARIO NUÑEZWILLIAMS Performed By Performed By: Itzel Lezama RDMS Attending: Phylicia March MD. Referred By: LALITA QUAN MD Service(s) Provided [facility] - Viability - Cervical Length - Transvaginal - [id number] [phone] Indications cervical length Evaluation Num Of Fetuses: [...] to participate in the care of PREETHI GILCARRIEFRANK. Please do not hesitate to call if you have any questions. Phylicia March MD Electronically Signed Final Report 07/04/2012 03:20 pm Lalita Quan [facility] ORDERABL ES documented in this encounter Visit Diagnoses Diagnosis History of loss in prior , currently with history of documented in this encounter Care Teams Route Rider Supervisor Relationship Specialty Start Date End Date None None PCP - General 05/08/12 04/20/14 documented as of this encounter
--- OUTSIDE RECORDS SUMMARY | 2023-10-31 03:23 | XMS_ITS | Encounter Summary ---
Author Organization [facility] [place] [address] Care Team Providers Care Household Cook Name Role Phone None Primary Care Provider Unavailabl e Reason for Visit * Reason Onset Date Comments Medication Refill 06/04/2012 Encounter Details Date Type Department Care Team (Late st Contact Info) Description 06/04/2012 Refill [place] [phone] Grififn Wallis III, MD [facility] DR [place] [address] Hypothyroidism (Primary Dx) Social History Tobacco Use [...] 11/08/2023 1:45 PM EDT Appointment [place] [address] Kelsea Shafer MD [facility] OBSTETRICS [place] [address] 11/08/2023 3:00 PM EDT Routine Obstetrics [place] [address] Ab, Lexii [place] [address] 05/23/2024 [place] [phone] Maite Malloy MD [facility] OBSTETRICS AND [place] [address] documented as of this encounter Visit Diagnoses Diagnosis Hypothyroidism- Primary Unspecified hypothyroidism documented in this encounter Care Teams Household Cook Relationship Specialty Start Date End Date None None PCP - General 05/08/12 04/20/14 documented as of this encounter
--- OUTSIDE RECORDS SUMMARY | 2023-10-31 03:23 | XMS_ITS | Encounter Summary ---
Author Organization [facility] Address [facility] [place] [address] Care Team Providers Care Android Software Engineer Name Role Phone None Primary Care Provider Unavailabl e Reason for Visit * Reason Comments Abdominal Cramping Encounter Details Date Type Department Care Team (Latest Contact Info) Description 07/10/2012 10:58 PM EDT - 07/11/2012 12:38 AM EDT Hospital Encounter [place] [address] Maite Marks MD [facility] OBSTETRICS & [place] [address] Discharge Disposition: Home Social History Tobacco Use [...] Perkins RN - 07/11/2012 12:35 [place] [address] [facility] to contact OB doctor [phone] to contact family doctor to contact diet counselor Andree Hummel [email or web address] 12:35 AM Following your visit to [facility] [place] Triage Reason for Visit: Chief Complaint Patient [...] a vaginal exam in your doctor's or diet counselor's office you should not bleed as much as a period You have noticed a marked decrease in your baby's movement refer to your kick count instructions in the Your Journey book Your baby should move at least 10 times in 2 hours You have had any direct trauma to your abdomen such as a car accident, fall, or impact Call your doctor or diet counselor if you have the following symptoms: Headache [...] dehydratio Keep your regularly scheduled doctor or diet counselor appointment Your medications: No current facility-administered medications on file prior to encounter. Current Outpatient Prescriptions on File Prior to Encounter Medication Sig Dispense Refill ??? dvinluxkue-whmaepyracqrh-nxybekoz (FIORICET, ESGIC) per tablet Take 1 tablet [...] TRIAGE NOTE Andree Hummel 22 y.o. 22w1d [id number] CC: I fell on my left side [...] PM EDT Appointment Ultrasound at [place] [phone] Kelsea Shafer MD [facility] OBSTETRICS [place] [address] 11/08/2023 3:00 PM EDT Routine Obstetrics [place] [address] Ab, Lexii Khan CNM [facility] [place] [address] 05/23/2024 Hospital Encounter Birthing [place] [phone] Maite Malloy MD [facility] [place] [address] documented as of this encounter Visit Diagnoses Not on filedocumented in this encounter Active and Recently Administered Medications Care Teams Android Software Engineer Relationship Specialty Start Date End Date None None PCP - General 05/08/12 04/20/14 documented as of this encounter
--- OUTSIDE RECORDS SUMMARY | 2023-10-31 03:23 | XMS_ITS | Encounter Summary ---
Author Organization [facility] [place] [address] Care Team Providers Care Aircraft Mechanic Electrical And Radio Name Role Phone None Primary Care Provider Unavailabl e Encounter Details Date Type Department Care Team (Latest Contact Info) Description 07/19/2012 10:35 AM EDT - 07/19/2012 11:59 PM EDT Hospital Encounter Ultrasound at [facility] [place] [phone] Migraine, unspecified, without mention of intractable migraine [...] PM EDT Appointment Ultrasound at [place] [phone] Kelsea Shafer MD [facility] OBSTETRICS AND [place] [address] 11/08/2023 3:00 PM EDT Routine Obstetrics and Gynecology at [place] [phone] Lexii Berger, [place] [address] 05/23/2024 Hospital [place] [address] Maite Malloy MD [facility] OBSTETRICS AND [place] [address] documented as of this encounter Procedures Procedure [...] Final 07/19/2012 11:21 am) Patient Info ID: ?[id number] ?: [birth year] (22 yrs) Name: ?PREETHI Godoy ? Visit Date: 07/19/2012 11:01 am ?LOUISE- ?FRANK Performed By Performed By: ?Ana Laura Urban Attending: ? Kandis LIMA, Latoya Figueroa Referred By: ? E MELANY BAY MD Service(s) Provided [facility]TV - Viability - Cervical Length - Transvaginal - ??21356 [id number] Indications Viability, transvaginal Evaluation Num Of Fetuses: [...] Final 07/19/2012 11:21 am) Patient Info ID: [id number] : [birth year] (22 yrs) Name: PREETHI Godoy Visit Date: 07/19/2012 11:01 am MARIO MARIE Performed By Performed By: Ana Laura Urban Attending: Latoya Marquis MD Referred By: Walt BAY MD Service(s) Provided [facility] - Viability - Cervical Length - Transvaginal - 36309 [id number] Indications Viability, transvaginal Evaluation Num Of Fetuses: [...] 11:21 am E Melany Bay MD IMG OB ORDERAB LES documented in this encounter Visit Diagnoses Diagnosis Migraine, unspecified, without mention of intractable migraine without mention of status migrainosus Unspecified high-risk documented in this encounter Care Teams Aircraft Mechanic Electrical And Radio Relationship Specialty Start Date End Date None None PCP - General 05/08/12 04/20/14 documented as of this encounter
--- OUTSIDE RECORDS SUMMARY | 2023-10-31 03:23 | XMS_ITS | Encounter Summary ---
Author Organization [facility] Address [facility] [place] [address] Care Team Providers Care Health Underwriter Name Role Phone None Primary Care Provider Unavailabl e Encounter Details Date Type Department Care Team (Late st Contact Info) Description 04/03/2011 Orders Only [place] [address] Marlo Ko MD [facility] [place] [address] Follicular adenoma of thyroid gland (Primary Dx) [...] 11/08/2023 1:45 PM EDT Appointment [place] [address] Kelsea Shafer MD [facility] OBSTETRICS [place] [address] 11/08/2023 3:00 PM EDT Routine Obstetrics [place] [address] Ab, Lexii C, [facility] [place] [address] 05/23/2024 Hospital Encounter Birthing [facility] [place] [phone] Maite Malloy MD [facility] OBSTETRICS [place] [address] documented as of this encounter Results * (ABNORMAL) TSH (05/10/2011 8:03 AM EST) TSH 111.10(H) 0.27 - 4.20 mcIU/mL CERNER MILLENNIUM Blood specimen (specimen) 05/10/2011 8:03 AM EST 05/10/2011 8:10 AM EST Marlo Ko MD CHEMISTRY ORDERABL ES CERNER [employer]ovunqueIUM * (ABNORMAL) T4 (05/10/2011 8:03 AM EST) T4, total 4.0(L) 5.1 - 10.8 mcg/dL CERNER MILLENNIUM Comment: Reference Range: Cord Blood: ??6.9-14.4 mcg/dL Females: ??7.2-14.2 mcg/dL Pediatric ranges: ??Interpret with caution-ranges have not been verified Blood specimen (specimen) 05/10/2011 8:03 AM EST 05/10/2011 8:10 AM EST Marlo Ko MD CHEMISTRY ORDERABL ES CERNER [employer] documented in this encounter Visit Diagnoses Diagnosis Follicular adenoma of thyroid gland- Primary Benign neoplasm of thyroid glands documented in this encounter Care Teams Health Underwriter Relationship Specialty Start Date End Date None None PCP - General 02/23/11 05/09/11 documented as of this encounter
--- OUTSIDE RECORDS SUMMARY | 2023-10-31 03:23 | XMS_ITS | Encounter Summary ---
Author Organization [facility] Address [facility] [place] [address] Care Team Providers Care Front Desk Host Name Role Phone None Primary Care Provider Unavailabl e Encounter Details Date Type Department Care Team (Late st Contact Info) Description 07/27/2012 Telephone Obstetrics [place] [address] Al Bhatti MD [facility] DR OBSTETRICS & [place] [address] Social History Tobacco Use Types Packs/Day Years [...] 11/08/2023 1:45 PM EDT Appointment Ultrasound at [place] [phone] Kelsea Shafer MD [facility] [place]ST[place] [address] 11/08/2023 3:00 PM EDT Routine Obstetrics [place] [address] Ab, Lexii Khan, [place] [facility] [place] [address] 05/23/2024 Hospital Encounter [place]thing [place] [phone] Maite Malloy MD [facility] OBSTETRICS AND [place] [address] documented as of this encounter Visit Diagnoses Not on filedocumented in this encounter Care Teams Front Desk Host Relationship Specialty Start Date End Date None None PCP - General 05/08/12 04/20/14 documented as of this encounter
--- OUTSIDE RECORDS SUMMARY | 2023-10-31 03:23 | XMS_ITS | Encounter Summary ---
Author Organization [facility] Address [facility] [place] [address] Care Team Providers Care Belt Cutter Name Role Phone Mya Varghese MD Primary Care Provider Reason for Visit * Reason Comments Advice Only H/O thyroidectomy Encounter Details Date Type Department Care Team (Late st Contact Info) Description 04/25/2012 9:45 AM EST Office Visit Obstetrics [place] [phone] Maite Marks MD [facility] DR OBSTETRICS & [place] [address] Thyroiditis (Primary Dx); Hypothyroidism complicating ; Family [...] NECK DISSECTION performed by JUAN ESPARZA at [facility] MAIN OR ??? Somatosensory test, any/all per. nerves, trunk or head 03/22/2011 FACIAL NERVE MONITORING, SETUP performed by JUAN ESPARZA at [facility] MAIN OR ??? Tonsillectomy ??? Benedict tooth extraction ??? Upper gastrointestinal endoscopy for [...] hypothyroidism. If her sister does have Long-chain 4-zuirzdwacmh-DeG dehydrogenase (LCHAD) deficiency, the patient has a [...] 11/08/2023 1:45 PM EDT [place] [address] Kelsea Shaefr MD [facility] OBSTETRICS [place] [address] 11/08/2023 3:00 PM EDT Routine Obstetrics [place] [address] Ab, Lexii C, CNM [facility] [place] [address] 05/23/2024 Hospital [place] [address] Maite Malloy MD [facility] OBSTETRICS [place] [address] documented as of this encounter Visit Diagnoses Diagnosis Thyroiditis- Primary Thyroiditis, unspecified Hypothyroidism complicating Thyroid dysfunction of mother, complicating , childbirth, or the puerperium, unspecified as to episode of care Family history of metabolic and nutritional disorder Family history of other endocrine and metabolic diseases documented in this encounter Care Teams Belt Cutter Relationship Specialty Start Date End Date Mya Varghese MD [address] [place] [address] [place] [address] PCP - General 05/10/11 05/07/12 documented as of this encounter
--- OUTSIDE RECORDS SUMMARY | 2023-10-31 03:23 | XMS_ITS | Encounter Summary ---
Author Organization [facility] [place] [address] Care Team Providers Care Celery Tier Name Role Phone None Primary Care Provider Unavailabl e Encounter Details Date Type Department Care Team (Latest Contact Info) Description 06/12/2012 9:49 AM EST - 06/12/2012 11:59 PM EST Hospital Encounter Ultrasound at [facility] [place] [phone] , supervision of, high-risk Social History Tobacco [...] 11/08/2023 1:45 PM EDT Appointment Ultrasound at [place] [phone] Kelsea Shafer MD [facility] OBSTETRICS [place] [address] 11/08/2023 3:00 PM EDT Routine Obstetrics [place] [address] Lexii Berger CNM [facility] [place] [address] 05/23/2024 [place] [address] Maite Malloy MD [facility] OBSTETRICS [place] [address] documented as of this encounter Procedures Procedure [...] 06/12/2012 11:07 am) Patient Info ID: ? [id number] ? : [birth year] (21 yrs) Name: ? PREETHI Walt ?Visit Date: 06/12/2012 10:49 am ? LOUISE- ? FRANK Performed By Performed By: ?Itzel Lzeama RDMS Attending: ? Mathew LIMA, Lalita Diop Referred By: ? E MELANY BAY MD Service(s) Provided [facility] - Targeted Morphology - Genetics - ? 15104 [id number] UOBTV - Viability - Cervical Length - Transvaginal - ??23736 [id number] Indications hypothyroid; possible history of 20 week [...] Tract: ?Visualized L Outflow Tract: ?Visualized Cardiac [place]: ? Visualized Diaphragm: ?Visualized Abdomen Ventral Wall: [...] Final 06/12/2012 11:07 am) Patient Info ID: [id number] : [birth year] (21 yrs) Name: PREETHI Godoy Visit Date: 06/12/2012 10:49 am MARIO MARIE Performed By Performed By: Itzel Lezama RDMS Attending: Lalita Carmona MD Referred By: Walt BAY MD Service(s) Provided [facility] - Targeted Morphology - Genetics - 62814 [id number] UOBTV - Viability - Cervical Length - Transvaginal - 39313 [id number] Indications hypothyroid; possible history of 20 week [...] Tract: Visualized L Outflow Tract: Visualized Cardiac [place]: Visualized Diaphragm: Visualized Abdomen Ventral Wall: Visualized [...] to participate in the care of PREETHI GILVishalFRANK. Please do not hesitate to call if you have any questions. Lalita Carmona MD Electronically Signed Final Report 06/12/2012 11:07 am E Melany Bay MD IMG OB ORDERAB LES documented in this encounter Visit Diagnoses Diagnosis , supervision of, high-risk Unspecified high-risk documented in this encounter Care Teams Celery Tier Relationship Specialty Start Date End Date None None PCP - General 05/08/12 04/20/14 documented as of this encounter
--- OUTSIDE RECORDS SUMMARY | 2023-10-31 03:23 | XMS_ITS | Encounter Summary ---
Author Organization [facility] [place] [address] Care Team Providers Care Centerless Grinder Tender Name Role Phone None Primary Care Provider Unavailabl e Reason for Visit * Reason Comments Routine Visit Encounter Details Date Type Department Care Team (Latest Contact Info) Description 06/21/2012 1:00 PM EST Routine Obstetrics [place] [address] Maite Marks MD [facility] DR OBSTETRICS & [place] [address] GA: 19w3d Discharge Disposition: Home Social History [...] 11/08/2023 1:45 PM EDT Appointment Ultrasound at [place] [phone] Kelsea Shafer MD [facility] [place] [address] 11/08/2023 3:00 PM EDT Routine Obstetrics [place] [address] Ab, Lexii Khan, RAY [facility] [place] [address] 05/23/2024 Hospital [place] [address] Maite Malloy MD [facility] [place] [address] documented as of this encounter [...] Appearance UA Clear Clear CERNER MILLENNIUM Spec [place] UA 1.010 1.002 - 1.030 CERNER MILLENNIUM Color UA Yellow Yellow [facility] E[facility] RBC UA Not Present 0 - 4 [...] Marks MD URINE ORDERABLES Performing Organization Address City/State/[facility] Co ar Phone Number [facility] documented in this encounter Visit Diagnoses Diagnosis High-risk supervision- Primary Unspecified high-risk documented in this encounter Care Teams Centerless Grinder Tender Relationship Specialty Start Date End Date None None PCP - General 05/08/12 04/20/14 documented as of this encounter
--- OUTSIDE RECORDS SUMMARY | 2023-10-31 03:23 | XMS_ITS | Encounter Summary ---
Author Organization [facility] [place] [address] Care Team Providers Care Manager Product Support Name Role Phone Mya Varghese MD Primary Care Provider [phone] Reason for Visit * Reason Comments Follow Up Surgery Encounter Details Date Type Department Care Team (Late st Contact Info) Description 05/10/2011 11:30 AM EST Office [place] [phone] Marlo Ko MD [facility] [place] [address] Follicular adenoma of thyroid gland; Hypothyroidism, postsurgical [...] 05/10/2011 10:33 AM EST Reason for Visit: Andere Godoy WallisVishalTamara returns. History of Present Illness: She is [...] 11/08/2023 1:45 PM EDT [place] [address] Kelsea Shafer MD [facility] DR OBSTETRICS [place] [address] 11/08/2023 3:00 PM EDT Routine Obstetrics [place] [address] Ab, Lexii C, CNM [facility] [place] [address] 05/23/2024 Hospital [place] [address] Maite Malloy MD [facility] OBSTETRICS [place] [address] documented as of this encounter Procedures Procedure Name Priority Date/Time Associated Diagnosis Comments TSH Routine 05/10/2011 8:03 AM EST Follicular adenoma of thyroid gland T4 TOTAL Routine 05/10/2011 8:03 AM EST Follicular adenoma of thyroid gland documented in this encounter Results * (ABNORMAL) TSH (05/10/2011 8:03 AM EST) TSH 111.10(H) 0.27 - 4.20 mcIU/mL [facility] Blood specimen (specimen) 05/10/2011 8:03 AM EST 05/10/2011 8:10 AM EST Marlo Ko MD CHEMISTRY ORDERABL ES [facility] * (ABNORMAL) T4 (05/10/2011 8:03 AM EST) T4, total 4.0(L) 5.1 - 10.8 mcg/dL [facility] Comment: Reference Range: [place] Cord Blood: ??6.9-14.4 mcg/dL Females: ??7.2-14.2 mcg/dL Pediatric ranges: ??Interpret with caution-ranges have not been verified Blood specimen (specimen) 05/10/2011 8:03 AM EST 05/10/2011 8:10 AM EST Marlo Ko MD CHEMISTRY ORDERABL ES [facility] documented in this encounter Visit Diagnoses Diagnosis Follicular adenoma of thyroid gland Benign neoplasm of thyroid glands Hypothyroidism, postsurgical Postsurgical hypothyroidism documented in this encounter Care Teams Manager Product Support Relationship Specialty Start Date End Date Mya Varghese MD [address] [place] [address] PCP - General 05/10/11 05/07/12 documented as of this encounter
--- OUTSIDE RECORDS SUMMARY | 2023-10-31 03:24 | XMS_ITS | Encounter Summary ---
Author Organization [facility] Address [address] [place] [address] Care Team Providers Care Senior Animator Name Role Phone Unavailable Primary Care Provider Unavailabl e Encounter Details Date Type Department Care Team (Late st Contact Info) Description 05/24/2007 11:52 [facility] Hospital Encounter [address] [address] Harsha Kingston MD [address] [place] [phone] Social History Tobacco Use Types Packs/Day Years [...]
--- OUTSIDE RECORDS SUMMARY | 2023-10-31 03:24 | XMS_ITS | Encounter Summary ---
Author Organization [facility] Address [address] [place] [address] Care Team Providers Care Butadiene Compressor Operator Name Role Phone None, Provider Primary Care Provider Tatum Marcelino MD Unavailable [phone] Encounter Details Date Type Department Care Team (Late st Contact Info) Description 05/21/2017 Results Only [facility] [phone] Russell Warner, [address] [address] Social History Tobacco Use Types Packs/Day Years [...] ? ANDREE ROJAS ? Accession #: ? [id number] : ? 1990 (Age: 26) ??F ?Collect Date: ? 05/21/2017 Location: ? [facility] ? Receive Date: ? 05/23/2017 Provider: ?RUSSELL VIVEROS ENVELOPE SEALING MACHINE OPERATOR-BC Copy to: ? Specimen/Source: ?Pap Test, Cervix, [...] Report Date: ??05/29/2017 10:03 End of Report [facility] 05/21/2017 05/23/2017 Russell Warner ENVELOPE SEALING MACHINE OPERATOR-BC PATHOLOGY ORDERA BLES [facility] [address] [place] [address] documented in this encounter Visit Diagnoses Not on filedocumented in this encounter Care Teams Butadiene Compressor Operator Relationship Specialty Start Date End Date None, Provider PCP - General 09/08/13 Tatum Lugo MD [address] [place] [phone] 09/08/13 documented as of this encounter
--- OUTSIDE RECORDS SUMMARY | 2023-10-31 03:24 | XMS_ITS | Encounter Summary ---
Author Organization [facility] Address [address] [place] [address] Care Team Providers Care Poultry Farm Supervisor Name Role Phone Tatum Arevalo MD Primary Care Provider [phone] Encounter Details Date Type Department Care Team (Late st Contact Info) Description 04/29/2007 Before PRISM Converted Visit ([facility] conversion [address] [place] [address] Neno Kingston MD [address] [place] [phone] Social History Tobacco Use Types Packs/Day Years [...] F. Robinson, MS, PNP Renee Patterson MS, SOFTWARE LICENSING EXECUTIVE ([id number]), REFERRING PHYSICIAN Tatum Arevalo M.D. PROBLEM Abdominal pain. WALLY Candelario returns to the Pediatric GI and Nutrition [...] Neno Kingston MD Division of Pediatric Gastroenterology [phone] - Neno Kingston MD A - RADHA Job ID: [id number] Doc ID: [id number] cc: Tatum Arevalo MD documented in this encounter Procedure Notes * Neno Gonzalez MD - 02/24/2009 1129 EST [facility] Colonoscopy Procedure Report Attending Physician: NENO GONZALEZ [...] ileum, confirmed by appendiceal orifice, cecal strap (kiana's foot), and ileocecal valve. The scope was [...] GONZALEZ MD, M.Acosta. on 05/14/2007 at 10:23 [facility] Document ID: [id number] * Neno Gonzalez MD - 02/24/2009 1129 EST [facility] Esophagogastroduodenoscopy Procedure Report Attending Physician: NENO GONZALEZ [...] GONZALEZ MD, M.Acosta. on 05/14/2007 at 09:49 [facility] Document ID: [id number] documented in this encounter Consult Notes * Neno Gonzalez MD - 02/23/2009 0532 EST CONSULTATION - 04/29/2007 Jim Marino [place] [address] Marino: THE PEDIATRIC GI TEAM: Pediatric GI, Hepatology & Nutrition MD Cale Arechiga MD Elizabeth F. Robinson, MS, PNP Renee Patterson, , SOFTWARE LICENSING EXECUTIVE ([facility]), Andree was seen in consultation today at [...] has. She was recently hospitalized just around [facility], needing a short course of steroids. Her [...] Neno Kingston MD Division of Pediatric Gastroenterology [phone] - Neno Kingston MD P - radha Job ID: [id number] Doc ID: [id number] cc: MD Neno Austin MD P - radha Job ID: [id number] Doc ID: [id number] cc: Jim Marino MD documented in this encounter Plan of Treatment Not on file documented as of this encounter Visit Diagnoses Not on filedocumented in this encounter Care Teams Poultry Farm Supervisor Relationship Specialty Start Date End Date Tatum Arevalo MD [address] [place] [phone] PCP - General 08/06/08 11/13/10 documented as of this encounter
--- OUTSIDE RECORDS SUMMARY | 2023-10-31 03:24 | XMS_ITS | Encounter Summary ---
Author Organization [facility] Address [address] [place] [address] Care Team Providers Care Systems Development Consultant Name Role Phone None, Provider Primary Care Provider Tatum Marcelino MD Unavailable [phone] Encounter Details Date Type Department Care Team ([facility] st Contact Info) Description 10/09/2013 Results Only [facility] [phone] Jose Enrique Pacheco MD [address] [place] [phone] Social History Tobacco Use Types Packs/Day Years [...] Chlamydia Result CHLAMYDIA TRACHOMATIS DNA detected by airline customer service agent mediated amplification.(A ) [facility] GC Result No Neisseria gonorrhoeae DNA detected by airline customer service agent mediated amplification. [facility] 10/09/2013 12:4 5 EDT 10/09/2013 15:02 EDT Jose Enrique Pacheco MD MICROBIOLOGY - GENER AL ORDERABLES Performing Organization Address City/[facility] Co de Phone Number [facility] [address] [place] [address] * VAGINITIS EXAM (10/09/2013 12:45 EDT) Specimen [...] - GENER AL ORDERABLES Performing Organization Address [facility] de Phone Number [facility] [address] [place] [address] documented in this encounter Visit Diagnoses Not on filedocumented in this encounter Care Teams Systems Development Consultant Relationship Specialty Start Date End Date None, Provider PCP - General 09/08/13 Tatum Lugo MD [address] [place] [phone] 09/08/13 documented as of this encounter
--- OUTSIDE RECORDS SUMMARY | 2023-10-31 03:24 | XMS_ITS | Encounter Summary ---
Author Organization [facility] [place] [address] Care Team Providers Care Brand Communications Manager Name Role Phone None Primary Care Provider Unavailabl e Reason for Visit * Reason Onset Date Comments Thyroid Problem 02/28/2011 Encounter Details Date Type Department Care Team ([facility] st Contact Info) Description 02/28/2011 Telephone [place] [phone] Jona Dickinson MD [address] [place] [address] Thyroid Problem Social History Tobacco Use Types [...] apart - needle sampling simply cannot. At [facility], this result is associated with an 18% [...] 11/08/2023 1:45 PM EDT [place]oint[place] [address] Kelsea Shafer MD [facility] OBSTETRICS [place] [address] 11/08/2023 3:00 PM EDT Routine Obstetrics [place] [address] Ab, Lexii Khan CNM [facility] [place] [address] 05/23/2024 Hospital [place] [address] Miate Malloy MD [facility] OBSTETRICS AND GYNECOLOGY [place], [place] [phone] documented as of this encounter Visit Diagnoses Not on filedocumented in this encounter Care Teams Brand Communications Manager Relationship Specialty Start Date End Date None None PCP - General 02/23/11 05/09/11 documented as of this encounter
--- OUTSIDE RECORDS SUMMARY | 2023-10-31 03:24 | XMS_ITS | Encounter Summary ---
Author Organization [facility] Address [address] [place] [address] Care Team Providers Care Geophysical Data Technician Name Role Phone Unknown, Provider Primary Care Provider [phone] Tatum Lugo MD Unavailable [phone] Encounter Details Date Type Department Care Team (Late st Contact Info) Description 11/14/2010 Results Only [facility] - [facility] ([facility]) [address] [place] [address] Mitesh Suarez MD [address] [place], [place] [address] Social History Tobacco Use Types Packs/Day Years [...] FRANK GIL S ? Accession #: ? [id number] ? : ? 1990 (Age: 20) ??F [...] a tam, slightly lobular cut surface. ??Two sales representative marine supplies sections are submitted as (B). ? Received in formalin labelled Bimal Frank and L tonsil are two ? pieces of firm tonsil which measure 2.3 x 2.0 x 1.5 cm and 2.2 x 2.1 x 1.5 cm. ?? Both pieces have light tam, multinodular mucosal surfaces and resection margins are black inked. ??Sections reveal a light tam, slightly lobular cut surface. ? Two sales representative marine supplies sections of the specimen are submitted as (C). ? Received in formalin labelled Gil, Frank and adenoids is a 1.8 x ?? 1.3 x 1.3 cm, firm, light tam, focally blood-stained, slightly lobular piece of tissue. ??Two sales representative marine supplies sections of the specimen are submitted as (D). (J. ?? Belle)/[facility] ? End of Report ? [facility] 11/14/2010 11/14/2010 18: 09 EDT Mitesh Suarez MD PATHOLOGY ORDERABLES Performing Organization Address City/State/[facility] Co de Phone Number [facility] [address] [place] [address] documented in this encounter Visit Diagnoses Not on filedocumented in this encounter Care Teams Geophysical Data Technician Relationship Specialty Start Date End Date Unknown, Provider, PCP - General 11/14/10 11/15/10 Tatum Lugo MD [address] [place] [phone] 11/14/10 09/07/13 documented as of this encounter
--- OUTSIDE RECORDS SUMMARY | 2023-10-31 03:24 | XMS_ITS | Encounter Summary ---
Author Organization [facility] Address [address] [place] [address] Care Team Providers Care Waste Recycler Name Role Phone Tatum Arevalo MD Primary Care Provider [phone] Encounter Details Date Type Department Care Team (Late st Contact Info) Description 05/14/2007 Results Only [facility] - [address] [phone] Harsha Kingston MD [address] [place] [phone] Social History Tobacco Use Types Packs/Day Years [...] ? ANDREE ROJAS ? Accession #: ? [id number] ? : ? 1990 (Age: 16) ??F [...] ? E ?Synaptophysin (Snp88, Biogenex) ? Non-contributory Housekeeper Home sections from the stomach and duodenum were [...] reagents' ??performance characteristics have been determined by [facility]. ??This laboratory is certified under the Clinical [...] cm. ??Submitted in toto as (K). ??(Jadon Cheney)/[facility] End of Report [facility] 05/14/2007 05/14/2007 12: 18 EST Harsha Kingston MD PATHOLOGY ORD ERABLES [facility] [address] [place] [address] documented in this encounter Visit Diagnoses Not on filedocumented in this encounter Care Teams Waste Recycler Relationship Specialty Start Date End Date Tatum Arevalo MD [address] [place] [phone] PCP - General 08/06/08 11/13/10 documented as of this encounter
--- OUTSIDE RECORDS SUMMARY | 2023-10-31 03:24 | XMS_ITS | Encounter Summary ---
Author Organization [facility] Address [address] [place] [address] Care Team Providers Care Aerial Applicator Pilot Name Role Phone None, Provider Primary Care Provider Tatum Marcelino MD Unavailable [phone] Encounter Details Date Type Department Care Team (Late st Contact Info) Description 03/08/2021 Lab Requisition [place] [facility] Pathology & Laboratory Medicine - [address] [phone] Outr Resulting Lab, Provider Social History Tobacco [...] 2.8 - 5.3 pg/mL 03/08/2021 21:47 EST [facility] Blood VENOUS BLOOD / Unknown 03/08/2021 10:45 EST 03/08/2021 21:09 EST Provider Outr Resulting Lab CHEMISTRY & BLOOD GAS ORDERABLES [facility] [address] [place] [address] documented in this encounter Visit Diagnoses Not on filedocumented in this encounter Care Teams Aerial Applicator Pilot Relationship Specialty Start Date End Date None, Provider PCP - General 09/08/13 Tatum Lugo MD [address] [place] [phone] 09/08/13 documented as of this encounter
--- OUTSIDE RECORDS SUMMARY | 2023-10-31 03:24 | XMS_ITS | Encounter Summary ---
Author Organization [facility] Address [address] [place] [address] Care Team Providers Care Costume Design Teacher Name Role Phone Unavailable Primary Care Provider Unavailabl e Encounter Details Date Type Department Care Team (Late st Contact Info) Description 05/14/2007 8:03 EST - 05/14/2007 11:59 EST Hospital Encounter [address] [address] Harsha Kingston MD [address] [place] [address] Discharge Disposition: Auto Discharge Social History Tobacco [...]
--- OUTSIDE RECORDS SUMMARY | 2023-10-31 03:24 | XMS_ITS | Encounter Summary ---
Author Organization [facility] Address [address] [place] [address] Care Team Providers Care Correctional Agency Director Name Role Phone Tatum Lugo MD Primary Care Provider [phone] Encounter Details Date Type Department Care Team (Late st Contact Info) Description 04/29/2007 Results Only [facility] - [address] [phone] Harsha Kingston MD [address] [place] [phone] Social History Tobacco Use Types Packs/Day Years [...] <20.0 Unit: U Performed or Referred by: [facility] D[facility] of Lab Med and Path, [address] ?? , [place] [address], Lab Dir: MD [facility] 04/29/2007 10:2 3 EST 04/29/2007 10:25 EST Harsha Kingston MD IMMUNOLOGY AN D SEROLOGY ORDERABLES Performing Organization Address [facility] de Phone Number [facility] [address] [place] [address] * TSH (04/29/2007 10:23 EST) TSH 1.97 0.35 - 5.00 uIU/mL [facility] 04/29/2007 10:2 3 EST 04/29/2007 10:25 EST Harsha Kingston MD CHEMISTRY & B LOOD GAS ORDERABLES Performing Organization Address [facility] de Phone Number [facility] [address] [place] [address] * (ABNORMAL) SED. RATE:WESTERGREN (04/29/2007 10:23 EST) Sed. Rate Enriqueren 34(H) 0 - 20 mm/hr [facility] 04/29/2007 10:2 3 EST 04/29/2007 10:25 EST Harsha Kingston MD HEMATOLOGY & PF4 ORDERABLES Performing Organization Address [facility] Co de Phone Number [facility] [address] [place] [address] * IGA (04/29/2007 10:23 EST) IgA 66 45 - 237 mg/dl [facility] 04/29/2007 10:2 3 EST 04/29/2007 10:25 EST Harsha Kingston MD CHEMISTRY & B LOOD GAS ORDERABLES Performing Organization Address [facility] de Phone Number [facility] [address] [place] [address] * T4 FREE (04/29/2007 10:23 EST) Free T4 1.2 0.8 - 1.5 ng/dL [facility] 04/29/2007 10:2 3 EST 04/29/2007 10:25 EST Harsha Kingston MD CHEMISTRY & B LOOD GAS ORDERABLES Performing Organization Address [facility] Phone Number [facility] [address] [place] [address] * (ABNORMAL) COMPREHENSIVE METABOLIC PANEL (04/29/2007 10:23 [...] LOOD GAS ORDERABLES [facility] [address] [place] [address] * (ABNORMAL) HEMAGRAM AND DIFFERENTIAL (04/29/2007 10:23 [...] PLT 257 156 - 312 K/cmm [facility] RDW-CV 13.1 % [facility] % Neutrophils 78.3 % [facility] % Lymphocytes 12.8 % [facility] % Monocytes 6.5 [...] DN A PROBE ORDERABLES Performing Organization Address City/[facility] Co de Phone Number [facility] [address] [place] [address] * HEMOGLOBIN A1C (04/29/2007 10:23 EST) Hemoglobin A1C 5.0 % [facility] Comment: Shortened red blood cell survival will decrease Hemoglobin A1C values. Reference Range: <6% Normal Range <7% Recommended goal by ADA guidelines 7-8% Suboptimal by ADA guidelines >8% Further action suggested by ADA guidelines 04/29/2007 10:2 3 EST 04/29/2007 10:25 EST Harsha Kingston MD CHEMISTRY & B LOOD GAS ORDERABLES Performing Organization Address [facility] Co de Phone Number [facility] [address] [place] [address] documented in this encounter Visit Diagnoses Not on filedocumented in this encounter Care Teams Correctional Agency Director Relationship Specialty Start Date End Date Tatum Lugo MD [address] [place] [phone] PCP - General 08/06/08 11/13/10 documented as of this encounter
--- OUTSIDE RECORDS SUMMARY | 2023-10-31 03:24 | XMS_ITS | Encounter Summary ---
Author Organization [facility] Address [address] [place] [address] Care Team Providers Care Panel Saw Operator Name Role Phone None, Provider Primary Care Provider Tatum Marcelino MD Unavailable [phone] Encounter Details Date Type Department Care Team (Latest Contact Info) Description 10/09/2013 7:21 EDT - 10/09/2013 7:22 EDT Hospital Encounter [address] [address] Jose Enrique Pacheco MD [address] [place] [address] Discharge Disposition: Home or Self [...] on filedocumented in this encounter Care Teams Panel Saw Operator Relationship Specialty Start Date End Date None, Provider PCP - General 09/08/13 Tatum Lugo MD [address] [place] [phone] 09/08/13 documented as of this encounter
--- OUTSIDE RECORDS SUMMARY | 2023-10-31 03:24 | XMS_ITS | Encounter Summary ---
Author Organization [facility] [place] [address] Care Team Providers Care Driver Helper Name Role Phone None Primary Care Provider Unavailabl e Reason for Visit * Reason Comments Other Thyroid Nodule Encounter Details Date Type Department Care Team (Late st Contact Info) Description 03/08/2011 10:30 AM EST Office [place] [phone] Marlo Ko MD [facility] [place] [place] [address] Thyroid nodule (Primary Dx) Discharge Disposition: Home [...] on physical exam. ROS: No H/O asthma, [place], stroke, pulmonary embolus or phlebitis. Comprehensive review [...] 11/08/2023 1:45 PM EDT Appointment Ultrasound at [place] [phone] Kelsea Shafer MD [facility] OB[place] [address] 11/08/2023 3:00 PM EDT Routine Obstetrics [place] [phone] Ab, Lexii C, CNM [facility] [place] [address] 05/23/2024 Hospital Encounter Birthing [place] [phone] Maite Malloy MD [facility] OBSTETRICS [place] [address] documented as of this encounter Procedures Procedure Name Priority Date/Time Associated Diagnosis Comments THYROIDECTOMY,FOR MALIGNANCY, LIMITED NECK DISSECTION Routine 03/08/2011 11:10 AM EST documented in this encounter Visit Diagnoses Diagnosis Thyroid nodule- Primary Nontoxic uninodular goiter documented in this encounter Care Teams Driver Helper Relationship Specialty Start Date End Date None None PCP - General 02/23/11 05/09/11 documented as of this encounter
--- OUTSIDE RECORDS SUMMARY | 2023-10-31 03:24 | XMS_ITS | Referral Summary ---
Author Organization [facility] Address [address] [place] [address] Care Team Providers Care Clinical Research Tech Name Role Phone None, Provider Primary Care Provider Tatum Marcelino MD Unavailable [phone] Allergies Active Allergy Reactions Criticality Noted [...] ? ANDREE ROJAS ? Accession #: ? [id number] : ? 1990 (Age: 26) ??F ?Collect Date: ? 05/21/2017 Location: ? [facility] ? Receive Date: ? 05/23/2017 Provider: ?RUSSELL VIVEROS POPCORN VENDOR-BC Copy to: ? Specimen/Source: ?Pap Test, Cervix, [...] Report Date: ??05/29/2017 10:03 End of Report [facility] 05/21/2017 05/23/2017 Russell Warner POPCORN VENDOR-BC PATHOLOGY ORDERA SAMUELS [facility] [address] [place] [address] from Last 3 Months or Most Recently Relevant to Health Maintenance Care Teams Clinical Research Tech Relationship Specialty Start Date End Date None, Provider PCP - General 09/08/13 Tatum Lugo MD [address] [place] [phone] 09/08/13
--- OUTSIDE RECORDS SUMMARY | 2023-10-31 03:24 | XMS_ITS | Encounter Summary ---
Author Organization [facility] Address [address] [place] [address] Care Team Providers Care Drupal Developer Name Role Phone None, Provider Primary Care Provider Tatum Marcelino MD Unavailable [phone] Reason for Visit * Reason Comments Knee Injury pt tripped over david r and landed on knee - severe pain. Encounter Details Date Type Department Care Team (Late st Contact Info) Description 09/08/2013 19:26 EDT - 09/08/2013 20:51 EDT Emergency [facility] Emergency Department - Main [place] [address] [place] [address] [id number] Lucas Guajardo PA-C [address] [place] [address] [place] [address] [phone] Emergency, MD Francis Knee sprain (Primary Dx) [...] preliminary report dictated by Fady Jose MD, vice president of brand management. Procedures ED Course: A medical screening exam [...] Sun09/08/13 at 2100, STAT 6 (Given - [facility] er: Nohemi Murray RN) documented in this encounter Care Teams Drupal Developer Relationship Specialty Start Date End Date None, Provider PCP - General 09/08/13 Tatum Lugo MD [address] [place] [address] [phone] 09/08/13 documented as of this encounter
--- OUTSIDE RECORDS SUMMARY | 2023-10-31 03:24 | XMS_ITS | Encounter Summary ---
Author Organization [facility] Address [address] [place] [address] Care Team Providers Care Race Car Mechanic Name Role Phone Tatum Lugo MD Primary Care Provider [phone] Tatum Lugo MD Unavailable [phone] Encounter Details Date Type Department Care Team (Late st Contact Info) Description 10/31/[address] [facility] - [facility] [address] [place] [address] [phone] Stephanie Chavez MD [address] [place] [address] Social History Tobacco Use Types Packs/Day [...] ? ANDREE ROJAS ? Accession #: ? [id number] : ? 1990 (Age: 22) ??F ?Collect [...] MD PATHOLOGY ORDERABLES [facility] [address] [place] [address] documented in this encounter Visit Diagnoses Not on filedocumented in this encounter Care Teams Race Car Mechanic Relationship Specialty Start Date End Date Tatum Lugo MD [address] [place] [address] [phone] PCP - General 11/16/10 09/07/13 Tatum Lugo MD [address] [place] [phone] 11/14/10 09/07/13 documented as of this encounter
--- OUTSIDE RECORDS SUMMARY | 2023-10-31 03:24 | XMS_ITS | Encounter Summary ---
Author Organization [facility] Address [address] [place] [address] Care Team Providers Care Collections Analyst Name Role Phone None, Provider Primary Care Provider aTtum Marcelino MD Unavailable [phone] Encounter Details Date Type Department Care Team (Late st Contact Info) Description 01/30/2020 Lab Requisition [facility] Pathology & Laboratory Medicine - [address] [address] Outr Resulting Lab, Provider Social History Tobacco [...] Outr Resulting Lab MICROBIOLOGY - GENERAL ORDERABLES [facility] [address] [place] [address] * COVID-19 TESTING (01/30/2020 9:58 EDT) COVID-19 rt-PCR Result Negative Negative 01/31/2020 1:45 EDT [facility] Comment: This test has [...] history, and epidemiological information. Performed on the [employer] Fusion instrument Performing Lab [place] [facility] 01/31/2020 1:45 EDT [facility] Swab 01/30/2020 9:58 EDT 01/30/2020 15:44 EDT Provider Outr Resulting Lab MICROBIOLOGY - GENERAL ORDERABLES [facility] [address] [place] [address] documented in this encounter Visit Diagnoses Not on filedocumented in this encounter Care Teams Collections Analyst Relationship Specialty Start Date End Date None, Provider PCP - General 09/08/13 Tatum Lugo MD [address] [place] [phone] 09/08/13 documented as of this encounter
--- OUTSIDE RECORDS SUMMARY | 2023-10-31 03:24 | XMS_ITS | Encounter Summary ---
Author Organization [facility] Address [address] [place] [address] Care Team Providers Care Business Systems Consultant Name Role Phone None, Provider Primary Care Provider Tatum Marcelino MD Unavailable [phone] Encounter Details Date Type Department Care Team (Late st Contact Info) Description 01/30/2020 Lab Requisition [facility] Pathology & Laboratory Medicine - [address] [address] Outr Resulting Lab, Provider Social History Tobacco [...] filedocumented in this encounter Care Teams Business Systems Consultant Relationship Specialty Start Date End Date None, Provider PCP - General 09/08/13 Tatum Lugo MD [address] [place] [address] [phone] 09/08/13 documented as of this encounter
--- OUTSIDE RECORDS SUMMARY | 2023-10-31 03:24 | XMS_ITS | Encounter Summary ---
Author Organization [facility] Address [facility] [place] [address] Care Team Providers Care Resist Coater Developer Name Role Phone None Primary Care Provider Unavailabl e Reason for Referral * Surgical (Routine) - Closed Specialty Diagnoses / Procedures Referred By Lamont riggins Referred To Contact General Surgery Diagnoses Thyroid nodule Jona Dickinson MD [address] [place] [address] Marlo Ko MD [facility] [place] [address] Referral ID Status Reason Start Date Expiration Date V isits Requested Visits Authorized [id number] Closed Specialty Service Requested 03/03/2011 08/30/2011 1 1 Reason for Visit * Reason Onset Date Comments Other 03/03/2011 ? when surgery i s scheduled Encounter Details Date Type Department Care Team (Late st Contact Info) Description 03/03/2011 Telephone [place] [address] Jona Dickinson MD [address] [place] [address] Other (? when surgery is scheduled) Social [...] Question of Surgical referral communicated to Dr Dickinson's In Basket. documented in this encounter Plan of Treatment Upcoming Encounters Date Type Department Care Team (Late st Contact Info) Description 11/08/2023 1:45 PM EDT Appointment Ultrasound at [place] [phone] Kelsea Shafer MD [facility] OBSTETR[place] [address] 11/08/2023 3:00 PM EDT Routine Obstetrics and Gynecology at [place] [phone] Ab, Lexii C, CNM [facility] [place] [address] 05/23/2024 Hospital Encounter Birthing eBtito [place] [phone] Maite Malloy MD [facility] OBSTETRICS [place] [address] Scheduled Referrals Name Type Priority Associated Diagnoses Orde r Schedule REFERRAL TO GENERAL SURGERY Outpatient Referral Routine Thyroid nodule Ordered: 03/03/2011 documented as of this encounter Visit Diagnoses Diagnosis Thyroid nodule- Primary Nontoxic uninodular goiter documented in this encounter Care Teams Resist Coater Developer Relationship Specialty Start Date End Date None None PCP - General 02/23/11 05/09/11 documented as of this encounter
--- OUTSIDE RECORDS SUMMARY | 2023-10-31 03:24 | XMS_ITS | Encounter Summary ---
Author Organization [facility] [place] [place] [address] Care Team Providers Care Coal Washer Tender Name Role Phone None Primary Care Provider Unavailabl e Reason for Visit * Reason Comments Thyroid Nodule Encounter Details Date Type Department Care Team ([facility] st Contact Info) Description 02/23/2011 1:00 PM EST Office Visit [place] [address] Jona Dickinson MD [address] [place] [address] Hypothyroid (Primary Dx); Thyroid nodule Discharge Disposition: [...] the thyroid gland were obtained using a SonDiditzaxx and an HFL38/13-6 broadband linear array transducer. [...] ORAL) No Known Allergies SH: Lives in [facility]. Occasional smoker. Occasional alcohol. No drug use. [...] Dr. Dickinson. Yessy Novak MD Endocrinology Fellow [facility] [place]ocrinology documented in this encounter Plan of Treatment Upcoming Encounters Date Type Department Care Team (Late st Contact Info) Description 11/08/2023 1:45 PM EDT Appointment Ultrasound at [place] [phone] Kelsea Shafer MD [facility] OBSTETRICS AND G[place]ECOLOGY [place], [place] [phone] 11/08/2023 3:00 PM EDT Routine Obstetrics [place] [phone] Ab, Lexii Khan CNM [facility] [place] [address] 05/23/2024 [place] [address] Maite Malloy MD [facility] OBSTETRICS AND [place], [place] [phone] documented as of this encounter Procedures Procedure Name Priority Date/Time Associated Diagnosis Comments NON-DIRECTOR SPECIALTY FINAL REPORT Routine 02/23/2011 4:31 PM EST TSH Routine 02/23/2011 2:25 PM EST Hypothyroid CYTOPATHOLOGY NON-GYNECOLOGICAL Routine 02/23/2011 2:18 PM EST Hypothyroid Thyroid nodule documented in this encounter Results * Non-Electrocardiograph Technician Final Report (02/23/2011 4:31 PM EST) Non-Electrocardiograph Technician Final Report [id number] ? Location: 5C The signing pathologist has (i) examined the relevant preparation(s) for the specimen(s) and (ii) rendered or confirmed the diagnosis(es). . ? Pathology Non-Electrocardiograph Technician Cytology Final Report Clinical Information Specimen Source [...] ?Screened by: ? FMQ ?Rescreened by: ?? FCL,SET UP MECHANIC COATING MACHINES 03/01/11 ?Verified by: ? RENARD SARKAR MD ? Pathologist ? (Electronic Signature) Comment Thyroid, [...] at the intradepartmental multihead conference with Drs Divya, Juan aRmon and Lori. CERNER MILLENNIUM 02/23/2011 4:31 PM EST Jona Dickinson MD PATHOLOGY/CYTOLOGY O DOMINGO Performing Organization Address [facility] Phone Number CERSWETA TrufflsIUM * TSH (02/23/2011 2:25 PM EST) TSH 1.62 0.27 - 4.20 mcIU/mL CERNER MILLENNIUM Blood specimen (specimen) 02/23/2011 2:25 PM EST 02/23/2011 2:51 PM EST Jona Dickinson MD CHEMISTRY ORDERABLES Performing Organization Address [facility] Phone Number CERSWETA SanghviENNIUM * Cytopathology Non-Gynecological (02/23/2011 2:18 PM EST) AP Specimen 02/23/2011 2:18 PM EST 02/23/2011 2:18 PM EST Narrative CERNER MILLENNIUM - 02/23/2011 2:18 PM EST Specimen requisition ordered. ??Separate Pathology report to follow Jona Dickinson MD PATHOLOGY/CYTOLOGY O RDSTEVE Performing Organization Address [facility] Co de Phone Number CERSWETA TrufflsIUM documented in this encounter Visit Diagnoses Diagnosis Hypothyroid- Primary Unspecified hypothyroidism Thyroid nodule Nontoxic uninodular goiter documented in this encounter Care Teams Coal Washer Tender Relationship Specialty Start Date End Date None None PCP - General 02/23/11 05/09/11 documented as of this encounter
--- OUTSIDE RECORDS SUMMARY | 2023-10-31 03:24 | XMS_ITS | Encounter Summary ---
Author Organization [facility] Address [address] [place] [address] Care Team Providers Care Rehab Trainer Name Role Phone None, Provider Primary Care Provider Tatum Marcelino MD Unavailable [phone] Encounter Details Date Type Department Care Team (Late st Contact Info) Description 09/17/2014 Results Only [facility] [phone] Dee Dee Shuk[place], [place] [facility] [address] [place] [address] [phone] Social History Tobacco Use Types Packs/Day Years [...] ? ANDREE ROJAS ? Accession #: ? [id number] : ? 1990 (Age: 24) ??F ?Collect Date: ? 09/17/2014 Location: ? [facility] ? Receive Date: ? 09/18/2014 Provider: ?DEE DEE SHUKLA DEPARTMENT HELPER Copy to: ? Specimen/Source: ?Pap Test, Cervix/Endocervix, [...] Report Date: ??09/24/2014 08:02 End of Report [facility] 09/17/2014 09/18/2014 Dee Dee Shukla DEPARTMENT HELPER PATHOLOGY ORDERABLES [facility] [address] [place] [address] documented in this encounter Visit Diagnoses Not on filedocumented in this encounter Care Teams Rehab Trainer Relationship Specialty Start Date End Date None, Provider PCP - General 09/08/13 Tatum Lugo MD [address] [place] [phone] 09/08/13 documented as of this encounter
--- OUTSIDE RECORDS SUMMARY | 2023-10-31 03:24 | XMS_ITS | Encounter Summary ---
Author Organization [facility] Address [address] [place] [address] Care Team Providers Care Guest Room Attendant Name Role Phone Unavailable Primary Care Provider Unavailabl e Encounter Details Date Type Department Care Team (Late st Contact Info) Description 04/29/2007 8:27 [facility] Hospital Encounter [address] [address] Harsha Kingston MD [address] [place] [phone] Social History Tobacco Use Types Packs/Day Years [...]
--- OUTSIDE RECORDS SUMMARY | 2023-10-31 03:24 | XMS_ITS | Clinical Summary ---
Author Organization [facility] Address [address] [place] [address] Care Team Providers Care Collar Worker Name Role Phone None, Provider Primary Care Provider Tatum Marcelino MD Unavailable [phone] Allergies Active Allergy Reactions Criticality Noted [...] ? ANDREE ROJAS ? Accession #: ? [id number] : ? 1990 (Age: 26) ??F ?Collect Date: ? 05/21/2017 Location: ? [facility] ? Receive Date: ? 05/23/2017 Provider: ?RUSSELL VIVEROS [facility]- Copy to: ? Specimen/Source: ?Pap Test, [...] ??05/29/2017 10:03 End of Report [facility] 05/21/2017 05/23/2017 Russell Warner HAND PACKER/PACKAGER-BC PATHOLOGY ORDERA ARIANNA [facility] [address] [place] [address] from Last 3 Months or Most Recently Relevant to Health Maintenance Care Teams Collar Worker Relationship Specialty Start Date End Date None, Provider PCP - General 09/08/13 Tatum Lugo MD [address] [place] [address] [phone] 09/08/13
--- OUTSIDE RECORDS SUMMARY | 2023-10-31 03:24 | XMS_ITS | Encounter Summary ---
Author Organization [facility] Address [address] [place] [address] Care Team Providers Care Automobile Engine Assembler Name Role Phone None, Provider Primary Care Provider Tatum Marcelino MD Unavailable [phone] Encounter Details Date Type Department Care Team (Late st Contact Info) Description 05/31/2021 Lab Requisition [facility] Pathology & Laboratory Medicine - [address] [address] Outr Resulting Lab, Provider Social History Tobacco [...] 85 - 499 mg/dL 06/01/2021 9:05 EST [facility] Blood VENOUS BLOOD / Unknown 05/31/2021 10:55 EST 05/31/2021 21:35 EST Provider Outr Resulting Lab CHEMISTRY & BLOOD GAS ORDERABLES [facility] [address] [place] [address] * IGG (05/31/2021 10:55 EST) IgG 738 610-1,616 mg/dL 06/01/2021 9:05 EST [facility] Blood VENOUS BLOOD / Unknown 05/31/2021 10:55 EST 05/31/2021 21:35 EST Provider Outr Resulting Lab CHEMISTRY & BLOOD GAS ORDERABLES Performing Organization Address [facility] de Phone Number [facility] [address] [place] [address] documented in this encounter Visit Diagnoses Not on filedocumented in this encounter Care Teams Automobile Engine Assembler Relationship Specialty Start Date End Date None, Provider PCP - General 09/08/13 Tatum Lugo MD [address] [place] [phone] 09/08/13 documented as of this encounter
[2023-10-31 15:16] LABS: HCG Quant, Pregnancy 48004 mIU/mL (1-3)
== END 2023-10-31 03:18 | disposition home or self-care (01) ==
LOC: LBO 03:17
PROVIDERS: PCP Nurse Practitioner Family; Visit Provider Student in an Organized Health Care Education/Training Program
DX: O20.8 Other hemorrhage in early pregnancy (principal)
CPT/HCPCS: 36415; 84702

== ENCOUNTER 2024-01-18 12:01 | Emergency (ER) | payer SELFPAY ==
--- NOTE | 2024-01-18 12:42 | NUR.NOTE ---
Nursing Note:Pt was placed in WR area to make phone call. I went to obtain patient shortly after to place her in Room 9 which was being cleaned. Pt was not found. Security states they saw her walk away from the hospital with someone.
== END 2024-01-18 12:37 ==
LOC: ER 12:39
PROVIDERS: PCP Nurse Practitioner Family
DX: Z53.21 Procedure and treatment not carried out due to patient leaving prior to being seen by health care provider (principal)

== ENCOUNTER 2024-01-23 16:12 | Emergency (ER) | payer SELFPAY ==
[2024-01-23] VITALS (12 sets, daily range): BP systolic 88–121; BP diastolic 52–73; PULSE 64–110; RESP 15; TEMP 36.1; O2SAT 97–100
--- NOTE | 2024-01-23 16:32 | ED.GENADUL_ITS ---
Discharge Plan Disposition Patient Disposition: Home Condition: Stable Discharge Details Clinical Impression: Abdominal pain during Primary Care Provider: Valencia Adhikari ED Provider: Harsha Quintero Home Meds and New Rx's Prescriptions: Continued levothyroxine [Synthroid] 200 MCG tablet 225 mcg PO QAM 21-iron fu-folic acid [ Complete] 1 tab PO DAILY Discharge Instructions Additional Instructions: Follow-up with your FINISHING FRAME RUNNER as scheduled If you feel more ill or have severe worsening pain or constant pain return to the emergency department for reevaluation HPI General Mode of arrival: ambulatory . Date/Time Provider Initiated Documentation: 01/23/24 16:17 . Limitations to Documentation: no limitations . Information obtained by: patient . History of Present Illness 33 year old F presents to the emergency department with the chief complaint of pelvic cramping, described as moderate, Patient reports radiation to (pelvis). Patient started experiencing this hour(s) (1.5) and it has been constant. No relieving factors improve symptom(s), No exacerbating factors reported . Patient notes no other symptoms.. Patient did receive the following treatments prior to arrival, none Related Data Home Medications ?Medication ?Instructions ?Recorded ?Confirmed levothyroxine 200 mcg tablet 225 mcg PO QAM 09/15/12 01/23/24 (Synthroid) 21-iron fu-folic acid 1 tab PO DAILY 01/23/24 01/23/24 Allergies Allergy/AdvReac Type Severity Reaction Status Date / Time hydromorphone (Hydromorphone) Allergy Severe Anaphylaxsi Unverified 01/23/24 17:12 s meperidine Allergy gi upset Unverified 01/23/24 17:12 itching codeine AdvReac Mild Nausea Unverified 01/23/24 17:12 General Stated Complaint: FINISHING FRAME RUNNER ALISHA: 3 Review of Systems All systems reviewed & are unremarkable except as noted in HPI and below Constitutional Constitutional: Denies chills, Denies fever(s) and Denies weakness Cardiovascular Cardiovascular: Denies chest pain and Denies dyspnea Respiratory Respiratory: Denies cough and Denies dyspnea Gastrointestinal Gastrointestinal: Denies nausea, Denies vomiting and Reports other (pelvic cramping) Genitourinary Genitourinary: Denies abnormal vaginal bleeding and Denies vaginal discharge Musculoskeletal Musculoskeletal: Denies joint swelling Neurologic Neurologic: Denies weakness Exam Const General: no acute distress Orientation: alert [facility] Head: normal to inspection Ears: external ears normal General nose exam: external nose normal Mouth: moist mucous membranes Resp Effort & Inspection: normal respiratory effort and able to speak in complete sentences Cardio Rate: regular rate GI Palpation: no other (gravid) Skin General skin exam: no rashes or lesions noted Neuro General: patient alert and patient oriented x3 Course Vital Signs Vital signs: Vital Signs Temperature 36.1 C L 01/23/24 16:21 Pulse 110 H 01/23/24 16:21 Respiratory Rate 15 01/23/24 16:21 Blood Pressure 91/56 L 01/23/24 16:21 Pulse Oximetry 98 01/23/24 16:21 Temperature 36.1 C L 01/23/24 16:21 Pulse 110 H 01/23/24 16:21 Respiratory Rate 15 01/23/24 16:21 Blood Pressure 91/56 L 01/23/24 16:21 Blood Pressure Position Sitting 01/23/24 16:21 Pulse Oximetry 98 01/23/24 16:21 Oxygen Delivery Method Room Air 01/23/24 16:21 Oxygen Flow Rate 0 01/23/24 16:21 Pain Level 8 01/23/24 16:21 Medical Decision Making 33-year-old female who states she is currently 20 weeks and has been previously 12 times with 1 live , comes in with chief complaint of lower pelvic cramping and intermittent sharp pain. Denies any vomiting, fever, vaginal bleeding. Her abdomen is gravid and has no significant tenderness anywhere. heart rate is 140 on exam. Will check CBC CMP and UA and monitor Patient asymptomatic requesting discharge. Lab work unremarkable. Still reassuring exam. Given reassuring workup and she is asymptomatic feel she can follow-up with FINISHING FRAME RUNNER, return precautions given Differential Diagnosis Differential Diagnosis: Ovarian cyst, round ligament pain. Quality:SDOH Health Related Social Needs: No Data to Display PFSH All Active Problems (Updated 01/23/24 @ 17:42 by Harsha Quintero MD) Abdominal pain during (Acute) Encounter for screening for other viral diseases (Acute) Asthma (Chronic) Premature delivery (Active 09/15/12) 32-week delivery Medical History (Updated 01/23/24 @ 17:42 by Harsha Quintero MD) GERD (gastroesophageal reflux disease) Bipolar disorder History of thyroid cancer Surgical History S/P thyroidectomy Tonsillectomy and adenoidectomy Social History Smoking/Tobacco Use Status: Former Tobacco Use Smoking risk assessment performed?: Yes Alcohol Intake: current Alcohol Intake frequency: a few times a week Drug use: Occasionally Substance use type: marijuana Housing: apartment Do you feel safe at home: Yes Do you feel safe in your relationship?: Yes Additional Social history: states she rents a room in a house but has housing insecurity.
[2024-01-23] MEDS: Acetaminophen 500 MG TAB 1000 MG PO (16:48)
[2024-01-23 17:27] LABS: Bilirubin Negative (Negative); Blood Negative (Negative); Clarity Clear (Clear); Glucose Negative (Negative); Ketones Negative (Negative); Leukocyte Esterase Negative (Negative); Nitrite Negative (Negative); Specific Gravity 1.015 (1.005-1.025); Urobilinogen 0.2 mg/dL (Up to 0.2); pH 6.5 (5-8)
[2024-01-23 17:30] LABS: ALT 16 U/L (14-59); AST 11 U/L (15-37); Albumin 2.9 g/dL (3.4-5.0); Alkaline Phosphatase 66 U/L (46-116); Anion Gap 11.3 mmol/L (3-11); BUN 4 mg/dL (7-18); Bilirubin, Total 0.43 mg/dL (0.2-1.0); CO2 21.7 mmol/L (21.0-32.0); CREATININE 0.5 mg/dL (0.55-1.02); Calcium 8.8 mg/dL (8.5-10.1); Chloride 108 mmol/L (98-107); Estimated GFR 127.72 (mL/min/1.73m2); Glucose 105 mg/dL (74-106); HCG Quant, Pregnancy 8156 mIU/mL (1-3); Potassium 3.5 mmol/L (3.5-5.1); Sodium 141 mmol/L (136-145); Total Protein 6.4 g/dL (6.4-8.2)
--- OUTSIDE RECORDS SUMMARY | 2024-01-23 17:53 | XMS_ITS | Encounter Summary ---
Author Organization [facility] [place] [address] Care Team Providers Care Appraiser Art Name Role Phone Richard Rasheed MD Primary Care Provider [phone] Encounter Details Date Type Department Care Team (Latest Contact Info) Description 12/27/2023 3:55 PM EDT Laboratory Appointment Lab [address] [place] [address] care in first trimester; Hypothyroidism, postsurgical Social History Tobacco Use Types Packs/Day Years [...] from your doctor or pharmacy? Never 10/12/2023 [facility] Utilities Answer Date Recorded In the past 12 months has [facility] [employer], oil, or water [employer] threatened to shut off services in your [...] any time in the past 12 m [facility], were you homeless or living [...] Care Team (Late st Contact Info) Description 01/24/2024 1:00 PM EDT [place] [phone] Walt Bay MD [facility] [address] OBSTETRICS AND GYNECOLOGY [place], [place] [id number] 01/24/2024 2:00 PM EDT Routine Obstetrics and Gynecology at [place] [phone] Taty Ramos MD [facility] MATERNAL & [place] [address] 02/07/2024 9:00 AM EDT Appointment Radiology at [place] [address] Walt Bay MD [facility] [address] OBSTETRICS [place] [address] 02/07/2024 10:15 AM EDT Routine Obstetrics and Gynecology at [address] Linda Diaz MD [facility] [place] [address] 03/12/2024 10:45 AM EST Office Visit Endocrinology at [place] [address] James Barth DO [facility] [place] [address] 05/23/2024 Hospital Encounter Birthing [place] [phone] Maite Malloy MD [facility] [address] OBSTETRICS [place] [address] documented as of this encounter Procedures Procedure Name Priority Date/Time Associated Diagnosis Comments TSH CASCADE Routine 12/27/2023 2:54 PM EDT Hypothyroidism, postsurgical T4, FREE Routine 12/27/2023 2:54 PM EDT Hypothyroidism, postsurgical documented in this encounter Results * (ABNORMAL) T4, free (12/27/2023 2:54 PM EDT) Free T4 0.51(L) 0.93 - 1.70 ng/dL 12/27/2023 4:53 PM EDT [facility] Comment: Reference Interval (ng/dL): ?? Females: ? First Trimester: 0.97-1.68 ? Second Trimester: 0.77-1.51 ? Third Trimester: 0.77-1.49 Blood VENOUS BLOOD SPECIMEN / Unknown Venipuncture / Unknown 12/27/2023 2:54 PM EDT 12/27/2023 2:54 PM EDT Maite Marks MD CHEMISTRY ORDERABLES Performing Organization Address [facility] Co de Phone Number [facility] [place] [address] * (ABNORMAL) TSH [place] (12/27/2023 2:54 PM EDT) Thyroid Stimulating Hormone 84.50(H) 0.27 - 4.20 mcIU/mL 12/27/2023 4:13 PM EDT [facility] Comment: Reference Interval (mcIU/mL): ?? Females: ? First Trimester: 0.23-3.88 ? Second Trimester: 0.22-3.90 ? Third Trimester: 0.44-4.66 Blood VENOUS BLOOD SPECIMEN / Unknown Venipuncture / Unknown 12/27/2023 2:54 PM EDT 12/27/2023 2:54 PM EDT Maite Marks MD CHEMISTRY ORDERABLES Performing Organization Address City/[facility]/ZIP Co de Phone Number [facility] [place] [address] documented in this encounter Visit Diagnoses Diagnosis care in first trimester Hypothyroidism, postsurgical Postsurgical hypothyroidism documented in this encounter Care Teams Appraiser Art Relationship Specialty Start Date End Date Richard Rasheed MD [address] [place] [id number] PCP - General Family Medicine 07/05/23 documented as of this encounter
--- OUTSIDE RECORDS SUMMARY | 2024-01-23 17:53 | XMS_ITS | Encounter Summary ---
Author Organization [facility] [place] [address] Care Team Providers Care Gullet Slitter Name Role Phone Richard Rasheed MD Primary Care Provider [phone] Encounter Details Date Type Department Care Team (Late st Contact Info) Description 11/21/2023 Telephone Obstetrics [place] [address] Sary Harris Social History Tobacco [...] from your doctor or pharmacy? Never 10/12/2023 [facility] Utilities Answer Date Recorded In the past 12 months has [facility] [employer], [employer], oil, or water [employer] threatened to shut off services in your [...] any time in the past 12 m [facility], were you homeless or living in a senior care (including now)? Yes 10/12/2023 Estimated Date of Delivery Comme nts Yes 06/12/2024 Based on Ultraso und Sex and Gender Information Value Date Recorded Sex Assigned at Female 10/12/2023 9:44 AM EDT Gender Identity Female 10/12/2023 9:44 AM EDT Sexual Orientation Straight 10/12/2023 9: 44 AM EDT documented as of this encounter Miscellaneous Notes * Telephone Encounter - Sary Harris - 11/21/2023 3:27 PM EDT Unable to LVM due to mailbox being full. Called to schedule GC appointment. documented in this encounter Plan of Treatment Upcoming Encounters Date Type Department Care Team (Late st Contact Info) Description 01/24/2024 1:00 PM EDT [place] [phone] Simin Bay MD [facility] OBSTETRICS [place] [address] 01/24/2024 2:00 PM EDT Routine Obstetrics and Gynecology at [place] [address] Taty Ramos MD [facility] MATERNAL & [place] [address] 02/07/2024 9:00 AM EDT Appointment Radiology at [place] [address] Simin Bay MD [facility] OBSTETRICS [place] [address] 02/07/2024 10:15 AM EDT Routine Obstetrics and Gynecology at [place] [address] Linda Diaz MD [facility] MATERNAL [place] [address] 03/12/2024 10:45 AM EST Office Visit Endocrinology at [place] [address] James Barth DO [facility] [place] [address] 05/23/2024 Hospital [place] [address] Maite Malloy MD [facility] OBSTETRICS [place] [address] documented as of this encounter Visit Diagnoses Not on filedocumented in this encounter Care Teams Gullet Slitter Relationship Specialty Start Date End Date Richard Rasheed MD [address] [place] [address] PCP - General Family Medicine 07/05/23 documented as of this encounter
--- OUTSIDE RECORDS SUMMARY | 2024-01-23 17:53 | XMS_ITS | Encounter Summary ---
Author Organization [facility] Address [facility] [place] [address] Care Team Providers Care Hearing Screen Coordinator Name Role Phone Richard Rasheed MD Primary Care Provider [phone] Encounter Details Date Type Department Care Team (Latest Contact Info) Description 12/27/2023 12:57 PM EDT - 12/27/2023 11:59 PM EDT Hospital En[place] [phone] Walt Bay MD [facility] OBST[place] [address] History of delivery, currently Discharge Disposition: Home Social History Tobacco Use [...] from your doctor or pharmacy? Never 10/12/2023 [facility] Utilities Answer Date Recorded In the past 12 months has e electric, gas, oil, or water company [...] any time in the past 12 m [facility], were you homeless or living in a retirement (including now)? Yes 10/12/2023 Estimated Date of [...] Dispensed Refills Start Date End Date levothyroxine (Synthroid) 175 mcg tablet Take 1 tablet by mouth daily. 90 tablet 3 11/15/2023 levothyroxine (Synthroid) 200 mcg tablet Take 1 tablet by mouth daily. 90 tablet 3 11/15/2023 vitamin with [id number]-[id number] Tablet Take by mouth. calcium carbonate (OS-LEMUEL) 648 mg calcium tablet Take 650 mg by mouth 3 times daily (with meals). documented as of this encounter Plan of Treatment Upcoming Encounters Date Type Department Care Team (Late st Contact Info) Description 01/24/2024 1:00 PM EDT Appointment Radiology at [place] [address] Walt Bay MD [facility] OBSTETRICS [place] [address] 01/24/2024 2:00 PM EDT Routine Obstetrics and Gynecology at [address] Taty Ramos MD [facility] MATERNAL & [place] [address] 02/07/2024 9:00 AM EDT Appointment Radiology at [place] [address] Walt Bay MD [facility] OBSTETRICS [place] [address] 02/07/2024 10:15 AM EDT Routine Obstetrics and Gynecology at [address] Linda Diaz MD [facility] [place] [address] 03/12/2024 10:45 AM EST Office [place] [address] James Barth DO [facility] [place] [address] 05/23/2024 Hospital Encounter Birthing [facility] [place] [address] Maite Malloy MD [facility] [address] OBSTET[place]ICS [place] [address] documented as of this encounter Procedures Procedure Name Priority Date/Time Associated Diagnosis Comments US OB CERVICAL LENGTH TRANSVAGINAL Routine 12/27/2023 1:31 PM EDT History of delivery, currently documented in this encounter Results * US OB Cervical Length Transvaginal (12/27/2023 1:31 PM EDT) WORKSTATION ID [id number] DH RAD Anatomical Region Laterality Modality Pelvis, Abdomen Ultrasound 12/27/2023 1:34 PM EDT Impressions 12/27/2023 1:45 PM EDT 2nd Trimester - Cervical Length - Summary Single intrauterine with a gestational age of 16w 0d based on Clinical ZAYDA Cervical length measures 4.4 cm. No change with fundal pressure. No dynamic change observed. Amniotic fluid volume is normal. Thank you for letting us participate in the care of this patient. If you are a health care provider and have any questions regarding this report, please contact the number above. For patients who have questions, please contact the health home care rn that requested your imaging first. ? Linda Diaz, Flight Coordinator Electronically Signed Final Report ?? 12/27/2023 01:45 pm Narrative 12/27/2023 1:45 PM EDT OBSTETRICS REPORT ?(Signed Final 12/27/2023 01:45 pm) PATIENT INFO: ID #: ? [id number] ?: ??[birth year] (33 yrs)(F) Name: ? IDAURVASHI Godoy ? Visit Date: 12/27/2023 01:34 pm ? LOUISE- ? FRANK PERFORMED BY: Performed By: ? Car Can RDMS Attending: ?Emily LIMA, Linda Figueroa Referred By: ?E MELANY BAY Location: ? [place] SERVICE(S) PROVIDED: UOBTVCER - Transvaginal ??2nd Trimester - ?58650 Cervical Length - [id number] INDICATIONS: 16 weeks gestation of ?Z3A.16 h/o PTD; cervical length TECHNIQUE/SCAN QUALITY: Technique: ?? Transducer ID#:[id number] EVALUATION: Num Of Fetuses: ? 1 Heart Rate(bpm): ??161 Presentation: ? Variable Placenta: ? Anterior --------- BIOMETRY: --------- OB HISTORY: : ?3 ? Term: ?? 1 ? SAB: ?? 1 GESTATIONAL AGE: LMP: ? 18w 6d ?Date: ??08/17/23 ? ZAYDA: ?? 05/23/24 Clinical ZAYDA: ??16w 0d ?ZAYDA: ?? 06/12/24 Best: ?16w 0d ?? Det. By: ??Clinical ZAYDA ? ZAYDA: ?? 06/12/24 -------- ANATOMY: -------- Cranium: ? Visualized Ventricles: ?Visualized Choroid Plexus: ?Visualized Cerebellum: ?Visualized Heart: ? Limited Views Stomach: ? Visualized Kidneys: ? Limited views Spine: ? Limited Views Upper Extremities: ? Limited views Lower Extremities: ? Limited views CERVIX UTERUS ADNEXA: Cervix Length: ?4.4 ??cm. No changes status post fundal pressure Procedure Note Linda Diaz MD - 12/27/2023 OBSTETRICS REPORT (Signed Final 12/27/2023 01:45 pm) PATIENT INFO: ID #: [id number] : [birth year] (33 yrs)(F) Name: PREETHI Godoy Visit Date: 12/27/2023 01:34 pm SAMANTHA MARIE PERFORMED BY: Performed By: Car Can RDMS Attending: Linda Diaz MD Referred By: Walt BAY Location: [place] SERVICE(S) PROVIDED: UOBTVCER - Transvaginal 2nd Trimester - 34923 Cervical Length - [id number] INDICATIONS: 16 weeks gestation of Z3A.16 h/o PTD; cervical length TECHNIQUE/SCAN QUALITY: Technique: Transducer ID#:[id number] EVALUATION: Num Of Fetuses: 1 Heart Rate(bpm): 161 Presentation: Variable Placenta: Anterior --------- BIOMETRY: --------- OB HISTORY: : 3 Term: 1 SAB: 1 GESTATIONAL AGE: LMP: 18w 6d Date: 08/17/23 ZAYDA: 05/23/24 Clinical ZAYDA: 16w 0d ZAYDA: 06/12/24 Best: 16w 0d Det. By: Clinical ZAYDA ZAYDA: 06/12/24 -------- ANATOMY: -------- Cranium: Visualized Ventricles: Visualized Choroid Plexus: Visualized Cerebellum: Visualized Heart: Limited Views Stomach: Visualized Kidneys: Limited views Spine: Limited Views Upper Extremities: Limited views Lower Extremities: Limited views CERVIX UTERUS ADNEXA: Cervix Length: 4.4 cm. No changes status post fundal pressure IMPRESSION 2nd Trimester - Cervical Length - Summary Single intrauterine with a gestational age of 16w 0d based on Clinical ZAYDA Cervical length measures 4.4 cm. No change with fundal pressure. No dynamic change observed. Amniotic fluid volume is normal. Thank you for letting us participate in the care of this patient. If you are a health care provider and have any questions regarding this report, please contact the number above. For patients who have questions, please contact the health home care rn that requested your imaging first. Linda Diaz, Flight Coordinator Electronically Signed Final Report 12/27/2023 01:45 pm E Melany Bay MD [facility] OB ORDERAB LES documented in this encounter Visit Diagnoses Diagnosis History of delivery, currently with history of pre-term labor documented in this encounter Care Teams Hearing Screen Coordinator Relationship Specialty Start Date End Date Richard Rasheed MD [address] [place] [address] PCP - General Family Medicine 07/05/23 documented as of this encounter
--- OUTSIDE RECORDS SUMMARY | 2024-01-23 17:53 | XMS_ITS | Clinical Summary ---
Author Organization [facility] Address [facility] [place] [address] Care Team Providers Care Census Clerk Name Role Phone Richard Rasheed MD Primary Care Provider [phone] Allergies Active Allergy Reactions Criticality Noted Date Comments Codeine Nausea And Vomiting Low 12/31/2019 Meperidine Anaphylaxis High 04/25/2012 Hydromorphone (Bulk) Hives High 03/22/2011 Medications Medication Sig Dispensed Refills Start Date End Date Status vitamin with [id number]-FA Tablet Take by mouth. Active calcium carbonate (OS-SHIRA) 648 mg calcium tablet Take 650 mg by mouth 3 times daily (with meals). Active levothyroxine (Synthroid) 175 mcg tablet Take 1 tablet by mouth daily. 90 tablet 3 11/15/2023 Active levothyroxine (Synthroid) 200 mcg tablet Take 1 tablet by mouth daily. 90 tablet 3 11/15/2023 Active Active Problems Problem Noted Date Diagnosed Date [...] (05/22/2012): Team MFM transfer of care from [facility] Delivery plan GBS date & Result Cystic fibrosis choice Aneuploidy choice QUAD Others screening tests Infant nutrition Childbirth education declined preferences Contraception plan undecided Ped/circ plans Immunizations: Influenza vaccine Accepted Declined Contraindicated x Other vaccines Indicated Not indicated Given during Tdap x Pneumovax MMR Varicella Other Migraine 02/23/2011 04/01/2015 Thyroid nodule 02/23/2011 06/12/2012 Encounters Date Type Department Care Team Description 01/03/2024 Orders Only Obstetrics [place] [address] Maite Marks MD Hypothyroidism, postsurgical 12/27/2023 3:55 PM EDT Laboratory Appointment Lab [address] [place] [address] care in first trimester; Hypothyroidism, postsurgical 12/27/2023 12:57 PM EDT - 12/27/2023 11:59 PM EDT Hospital [place] [phone] Walt Briseno MD History of delivery, currently Discharge Disposition: Home 12/27/2023 Travel 11/29/2023 Telephone [place] [address] Suzanne Bhatti, DO 11/23/2023 1:00 PM EDT TH Visit (TeleHealth) [place] [phone] Félix Richardson, [facility] Encounter for procreative genetic counseling; Family history of genetic disease carrier; Encounter of female for testing for genetic disease carrier status for procreative management; care in first trimester 11/22/2023 Telephone [place] [phone] Suri Menon, RN 11/21/2023 Telephone Ob[place] [phone] Sary Harris 11/20/2023 Telephone Obst[place]s [place] [phone] Suzanne Bhatti, DO 11/20/2023 Telephone Ob[place] [phone] Jody Wood RN 11/15/2023 4:05 PM EDT Laboratory Appointment Lab [address] [place] [address] History of delivery, currently ; Hypothyroidism, postsurgical 11/15/2023 3:00 PM EDT Office Visit Ob[place] [address] Walt Briseno MD History of delivery, currently ; Hypothyroidism, postsurgical 11/15/2023 Travel 11/08/2023 3:00 PM EDT Routine Ob[place]s [place] [address] Ab, Lexii Khan CNM GA: 9w0d 11/08/2023 1:29 PM EDT - 11/08/2023 11:59 PM EDT Hospital Encounter Ultrasound at [place] [phone] Paul Mendez MD care in first trimester Discharge Disposition: Home 11/08/2023 Travel 10/31/2023 Notes Only CUSTOMER RESOLUTION SPECIALIST [place] [phone] Tye Gamble MD 10/26/2023 Telephone Obstetrics and Gynecology at [place] [phone] Tye Gamble MD 10/23/2023 Telephone [place] [address] Natalia Bravo RN from Last 3 Months Immunizations Name Administration [...] from your doctor or pharmacy? Never 10/12/2023 [facility] Utilities Answer Date Recorded In the past 12 months has [employer] electric, gas, oil, or water company threatened [...] in the past 12 m [facility], were you homeless or living in a [facility] (including now)? Yes 10/12/2023 Estimated Date of Delivery Comme nts Yes 06/12/2024 Based on Ultraso und Sex and Gender Information Value Date Recorded Sex Assigned at Female 10/12/2023 9:44 AM EDT Gender Identity Female 10/12/2023 9:44 AM EDT Sexual Orientation Straight 10/12/2023 9: 44 AM EDT Last Filed Vital Signs Vital Sign Reading Time Taken Comments Blood Pressure 106/66 12/27/2023 2:04 PM EDT Pulse 120 08/18/2021 2:00 PM EDT Temperature 36.8 ??C (98.2 ??F) 08/04/2020 10:16 AM E DT Respiratory Rate 10 04/26/2021 11:20 AM EST Oxygen Saturation 99% 08/04/2020 10:16 AM EDT Inhaled Oxygen Concentration - - Weight 82.1 kg (181 lb) 12/27/2023 2:04 PM EDT Height 172.7 cm (5' 8) 04/26/2021 11:20 AM EST Body Mass Index 27.52 04/26/2021 11:20 AM EST Plan of Treatment Upcoming Encounters Date Type Department Care Team (Late st Contact Info) Description 01/24/2024 1:00 PM EDT Appointment Radiology at [place] [phone] Walt Briseno MD [facility] DR OBSTETRICS [place] [address] 01/24/2024 2:00 PM EDT Routine Obstetrics and Gynecology at [place] [phone] Taty Ramos MD [facility] [place] [address] 02/07/2024 9:00 AM ED[place] [phone] Walt Briseno MD [facility] DR OB[place] [address] 02/07/2024 10:15 AM EDT Routine Obstetrics [place] [phone] Linda Diaz MD [facility] [place] [address] 03/12/2024 10:45 AM EST Office [place] [phone] James Barth DO [facility] [place] [address] 05/23/2024 Hospital [place] [phone] Maite Malloy MD [facility] [place] [address] Health Maintenance Due Date Last Done Comments Pneumococcal Vaccine: At-Ris k 5-64yrs (1 of 2 - PCV) 06/15/1997 Lipid Screening 06/15/2009 Hepatitis B vaccine (0-59 yrs) (1) 06/15/2010 Tetanus/Diphtheria/Pertussis Vaccines (1 - Tdap) 06/15/2010 PAP Smear 08/05/2023 08/04/2020 Covid-19 Vaccine (1 - 2022- season) 2023 Influenza (Flu) vaccine (1 o f 1 - Influenza standard series) 12/16/2023 01/16/2020, 01/15/2019 RSV Vaccine (1 - Risk pregna nt 1-dose series) 04/17/2024 HIV screen Completed 11/08/2023, 09/03/2012 Hepatitis C Screening Completed 11/08/2023 Procedures Procedure Name Priority Date/Time Associated Diagnosis Comments T4, FREE Routine 12/27/2023 2:54 PM EDT Hypothyroidism, postsurgical TSH CASCADE Routine 12/27/2023 2:54 PM EDT Hypothyroidism, postsurgical US OB CERVICAL LENGTH TRANSVAGINAL Routine 12/27/2023 1:31 PM EDT History of delivery, currently T4, FREE Routine 11/15/2023 4:10 PM EDT PANORAMA SCREEN Routine 11/15/2023 4:10 PM EDT History of delivery, currently TSH CASCADE Routine 11/15/2023 4:10 PM EDT History of delivery, currently Hypothyroidism, postsurgical TYPE AND SCREEN VALIDITY Routine 11/08/2023 3:33 PM EDT ABORH RECHECK STATUS Routine 11/08/2023 3:33 PM EDT TYPE AND SCREEN ([facility]/CGP/CARIE) Routine 11/08/2023 3:33 PM EDT care in first trimester T4, FREE Routine 11/08/2023 3:33 PM EDT HIV SCREEN, 4TH GENERATION ([facility]/CGP/APD/NLH) Routine 11/08/2023 3:33 PM EDT care in first trimester SYPHILIS ANTIBODY SCREEN WITH REFLEX Routine 11/08/2023 3:33 PM EDT care in first trimester DIFFERENTIAL, AUTOMATED Routine 11/08/2023 3:33 PM EDT care in first trimester HEMOGRAM Routine 11/08/2023 3:33 PM EDT care in first trimester RUBELLA ANTIBODY, IGG Routine 11/08/2023 3:33 PM EDT care in first trimester HEPATITIS B SURFACE ANTIGEN Routine 11/08/2023 3:33 PM EDT care in first trimester HC ABO-MICROTITER Routine 11/08/2023 3:3 3 PM EDT care in first trimester TSH CASCADE Routine 11/08/2023 3:33 PM EDT care in first trimester HEPATITIS C ANTIBODY Routine 11/08/2023 3:33 PM EDT care in first trimester US OB VIABILITY TRANSABDOMINAL Routine 11/08/2023 1:48 PM EDT care in first trimester LAB SCAN 10/31/2023 12:00 AM EDT PHARMACY GENERAL MANAGER CYTOLOGY FINAL REPORT Routine 08/04/2020 10:25 AM EDT from Last 3 Months or Most Recently Relevant to Health Maintenance Results * (ABNORMAL) TSH Hancock (12/27/2023 2:54 PM EDT) Only the most recent of3 resultswithin the time period is included. Thyroid Stimulating Hormone 84.50(H) 0.27 - 4.20 mcIU/mL 12/27/2023 4:13 PM EDT [facility] Comment: Reference Interval (mcIU/mL): ?? Females: ? First Trimester: 0.23-3.88 ? Second Trimester: 0.22-3.90 ? Third Trimester: 0.44-4.66 Blood VENOUS BLOOD SPECIMEN / Unknown Venipuncture / Unknown 12/27/2023 2:54 PM EDT 12/27/2023 2:54 PM EDT Maite Marks MD CHEMISTRY ORDERABLES [facility] [place] [address] * (ABNORMAL) T4, free (12/27/2023 2:54 PM EDT) Only the most recent of3 resultswithin the time period is included. Free T4 0.51(L) 0.93 - 1.70 ng/dL 12/27/2023 4:53 PM EDT [facility] Comment: Reference Interval (ng/dL): ?? Females: ? First Trimester: 0.97-1.68 ? Second Trimester: 0.77-1.51 ? Third Trimester: 0.77-1.49 Blood VENOUS BLOOD SPECIMEN / Unknown Venipuncture / Unknown 12/27/2023 2:54 PM EDT 12/27/2023 2:54 PM EDT Maite Marks MD CHEMISTRY ORDERABLES [facility] [place] [address] * US OB Cervical Length Transvaginal (12/27/2023 1:31 PM EDT) [employer] WORKSTATION ID [id number] DH RAD Anatomical Region Laterality Modality Pelvis, [...] who have questions, please contact the health ambulatory care nurse that requested your imaging first. ? Linda Diaz, Safe And Vault Mechanic Electronically Signed Final Report ?? 12/27/2023 01:45 pm Narrative 12/27/2023 1:45 PM EDT OBSTETRICS REPORT ?(Signed Final 12/27/2023 01:45 pm) PATIENT INFO: ID #: ? [id number] ?: ??[birth year] (33 yrs)(F) Name: ? SORCHA E ? Visit Date: 12/27/2023 01:34 pm ? LOUISE- ? FRANK PERFORMED BY: Performed By: ? Car Can RDMS Attending: ?Emily LIMA, Linda Figueroa Referred By: ?E MELANY BRISENO Location: ? [place] SERVICE(S) PROVIDED: UOBTVCER - Transvaginal ??2nd Trimester - ?18236 Cervical Length - [id number] INDICATIONS: 16 weeks gestation of ?Z3A.16 h/o [...] 12/27/2023 01:45 pm) PATIENT INFO: ID #: [id number] : [birth year] (33 yrs)(F) Name: PREETHI Godoy Visit Date: 12/27/2023 01:34 pm LOUISEVishal MARIE PERFORMED BY: Performed By: Car Can RDMS Attending: Linda Diaz MD Referred By: Walt BRISENO Location: [place] SERVICE(S) PROVIDED: UOBTVCER - Transvaginal 2nd Trimester - 60024 Cervical Length - [id number] INDICATIONS: 16 weeks gestation of Z3A.16 h/o [...] who have questions, please contact the health ambulatory care nurse that requested your imaging first. Linda Diaz, Safe And Vault Mechanic Electronically Signed Final Report 12/27/2023 01:45 pm E Melany Briseno MD IMG US OB ORDERAB LES * Panorama Screen (11/15/2023 4:10 PM EDT) Ramesh Report Summary LOW RISK [facility] Comment:LOW RISK Ramesh Report Note See Notes [facility] Trisomy 21 Result (ROM) Low Risk [facility] Trisomy 18 Result (ROM) Low Risk [facility] Trisomy 13 Result (ROM) Low Risk [facility] Monosomy X Result (ROM) Low Risk [facility] Triploidy Result (ROM) Low Risk [facility] Sex of Fetus Female [facility] Ramesh Footnotes See Notes MAR Y [facility] Comment: Testing Methodology DNA isolated from maternal blood, which contains placental DNA, is amplified at specific loci using a targeted PCR assay and is sequenced using a high-throughput sequencer. fraction is determined using a proprietary algorithm incorporating data from single nucleotide polymorphism-based (SNP-based) next-generation sequencing [Cherie Godoy et al. Obstet Gynecol. 2014 Nov;124(2 Pt 1):210-8]. If there is sufficient fraction, sequencing data is analyzed using a proprietary SNP-based algorithm to determine the copy number for chromosomes 13, 18, 21, X and Y. If ordered, specific microdeletions will be evaluated using similar methodology [George BRIONES et al. Am J Obstet Gynecol. 2015 Jun;212(3):332.e1-9]. If the fraction is insufficient, signal enhancement and/or an additional algorithm to determine whether there is an increased risk for triploidy, trisomy 18, and trisomy 13 may be utilized [Aura et al. Ultrasound Obstet Gynecol 2019; 53:73-79]. However, some samples will not produce a result due to failure to meet the necessary quality thresholds. This test has been validated on women with a locke, twin or egg donor of at least nine weeks gestation. A result will not be available for higher order multiples and multiple gestation pregnancies with an egg donor or surrogate, or bone marrow transplant recipients. Complete test panel is not available for twin gestations and pregnancies achieved with an egg donor or surrogate. For twin pregnancies with a fraction value below the threshold for analysis, a sum of the fractions for both twins will be reported. As this assay is a screening test and not diagnostic, false positives and false negatives can occur. High risk test results need diagnostic confirmation by alternative testing methods. Low risk results do not fully exclude the diagnosis of any of the syndromes nor do they exclude the possibility of other chromosomal abnormalities or defects, which are not a part of this test. Potential sources of inaccurate results include, but are not limited to, mosaicism, low fraction, limitations of current diagnostic techniques, or misidentification of samples. This test will not identify all deletions associated with each microdeletion syndrome. This test has been validated for deletions ??> = 0.5 Mb within the 22q11.2 A-D region. This test has been validated on full region deletions only for 1p36 deletion syndrome, Cri-du-chat syndrome, Prader Willi syndrome and Angelman syndrome and may be unable to detect smaller deletions. Microdeletion risk score may be dependent upon fraction, as deletions on the maternally inherited copy are difficult to identify at lower fractions. Test results should always be interpreted by a clinician in the context of clinical and familial data with the availability of genetic counseling when appropriate. Disclaimers This test was performed by [facility]. [address], [place] [address] (CLIA ID [id number]). The performance characteristics of this test were developed by [facility]. This test has not been cleared or approved by the U.S. Food and Drug Administration (FDA). This laboratory is regulated under CLIA as qualified to perform high-complexity testing. ??2020 [facility]. All Rights Reserved. Please refer to the attached PDF report Reviewed By: Isabel Ascencio M.D., Ph.D., [facility], Senior [employer] [facility] Waterproofer Helper: Eric Weinebrg, Ph.D., [facility] IF THE ORDERING PROVIDER HAS QUESTIONS OR WISHES TO DISCUSS THE RESULTS, PLEASE CONTACT US AT [phone] #[phone]. Ask for the [facility] counselor document control associate. Blood 11/15/2023 4:10 PM EDT 11/16/2023 7:47 AM EDT E Melany Briseno MD LAB SEND OUT VON JAVIER Performing Organization Address City/State/[facility] Co de Phone Number [facility] [place] [address] * Type and Screen Validity (11/08/2023 3:33 PM EDT) T&S only valid at [facility] Comment:This Type and Screen result is only valid at the [facility] Blood 11/08/2023 3:33 PM EDT 11/08/2023 3:47 PM EDT Narrative Resulting Agency Comment Spec In Lab Lexii Berger [facility] BLOOD BANK LAB ORDER AMANDA [facility] [place] [address] * ABORH Recheck Status (11/08/2023 3:33 PM EDT) [facility] ABORH Type Recheck Completed [facility] Blood 11/08/2023 3:33 PM EDT 11/08/2023 3:47 PM EDT Narrative Resulting Agency Comment Spec In Lab Lexii Berger [facility] BLOOD BANK LAB ORDER AMANDA Performing Organization Address City/[facility]/ZIP Co de Phone Number [facility] [place] [address] * (ABNORMAL) Hemogram (11/08/2023 3:33 PM EDT) [facility] White Blood Cell 8.9 4.0 - 9.5 x10(3)/mc L [facility] Red Blood Cell 3.39(L) 4.00 - 5.21 x10(6)/mc L [facility] Hemoglobin 11.4(L) 11.7 - 15.5 g/dL [facility] Hematocrit 33.7(L) 35.7 - 45.8 % [facility] Mean Cell Volume 99.4(H) 82.6 - 94.4 fL [facility] Mean Cell Hemoglobin 33.6(H) 27.1 - 32.0 pg [facility] Mean Cell Hemoglobin Concentration 33.8 31.7 - 35.0 g/dL [facility] Platelet 204 145 - 357 x10(3)/mc L [facility] RDW Standard Deviation 50.7(H) 37.0 - 46.0 fL [facility] RDW coefficient of variation 13.9 11.5 - 14.1 % [facility] Mean Platelet Volume 10.8 7.6 - 12.9 fL [facility] NRBC% auto 0.0 % [facility] NRBC Absolute 0.000 0.000 - 0.000 x10(3)/ L [facility] Blood 11/08/2023 3:33 PM EDT 11/08/2023 3:50 PM EDT Narrative Resulting Agency Comment Spec In Lab Lexii Khan Ab CNM HEMATOLOGY ORDERABLE S [facility] [place] [address] * (ABNORMAL) Differential, Automated (11/08/2023 3:33 PM EDT) Neutrophil % 70.6 % [facility] Neutrophil Absolute 6.25(H) 1.70 - 6.10 x10(3)/[facility] Lymph % 19.6 % [facility] Lymphocytes Abs 1.7 0.9 - 3.2 x10(3)/[facility] Monocyte % 8.2 % [facility] Monocyte Abs 0.7 0.3 - 0.9 x10(3)/[facility] LABOR[facility] Eos % 0.8 % [facility] Eosinophils Abs 0.1 0.0 - 0.4 x10(3)/[facility] Basophil % 0.5 % [facility] Baso Absolute 0.0 0.0 - 0.1 x10(3)/[facility] Immature Gran % 0.30 % [facility] Comment: Immature granulocytes(IG's)percentage and absolute count will include metamyelocytes, myelocytes, and promyelocytes. Blood smears from CBCs yielding IG's will be scanned manually for concordance. If this scan disagrees with the automated IG or if promyelocytes are noted, a manual differential will be performed. Immature Gran Absolute 0.03 0.00 - 0.04 x10(3)/ L [facility] Blood 11/08/2023 3:33 PM EDT 11/08/2023 3:50 PM EDT Narrative Resulting Agency Comment Spec In Lab Lexii Berger CNM HEMATOLOGY ORDERABLE S Performing Organization Address [facility] Co de Phone Number [facility] [place] [address] * Hepatitis C Antibody (11/08/2023 3:33 PM EDT) Hepatitis C Antibody Negative Negative [facility] Blood 11/08/2023 3:33 PM EDT 11/08/2023 3:50 PM EDT Narrative Resulting Agency Comment Spec In Lab Lexii Berger CNM CHEMISTRY ORDERABLES Performing Organization Address [facility] de Phone Number [facility] [place] [address] * Syphilis Screening Antibody with reflex RPR (11/08/2023 3:33 PM EDT) Syphilis IgG/IgM Negative Negative [facility] Blood 11/08/2023 3:33 PM EDT 11/08/2023 3:50 PM EDT Narrative Resulting Agency Comment Spec In Lab Lexii Berger CNM CHEMISTRY ORDERABLES Performing Organization Address [facility] Co de Phone Number [facility] [place] [address] * Rubella Antibody, IgG (11/08/2023 3:33 PM EDT) Rubella Antibody IgG Positive Positive [facility] Comment: Please note: ??A positive result for this assay indicates that antibody levels are >or= 10.0 IU/mL and is considered to be an indicator of positive immune status. Blood 11/08/2023 3:33 PM EDT 11/08/2023 3:50 PM EDT Narrative Resulting Agency Comment Spec In Lab Lexii Khan Ab CNM CHEMISTRY ORDERABLES Performing Organization Address [facility]/ZIP Co de Phone Number [facility] [place] [address] * HIV Screen, 4th Generation ([facility]/CGP/APD/NLH) (11/08/2023 3:33 PM EDT) HIV Ab/Ag Screen Negative Negative [facility] Comment: This 4th Generation HIV test screens for the presence of the HIV-1 p24 antigen as well as antibodies reactive against HIV-1 and HIV-2. A negative screen does not rule out an acute HIV infection. If acute HIV infection is suspected, testing should be repeated in 2 - 3 weeks or HIV nucleic acid testing performed. HIV Comment Low Risk of HIV Infection [facility] Blood 11/08/2023 3:33 PM EDT 11/08/2023 3:50 PM EDT Narrative Resulting Agency Comment Spec In Lab Lexii Berger CNM CHEMISTRY ORDERABLES Performing Organization Address [facility]/ZIP Co de Phone Number [facility] [place] [address] * Hepatitis B Surface Antigen (11/08/2023 3:33 PM EDT) Pathologist [facility] Hepatitis B Surface Antigen Negative Negative [facility] Blood 11/08/2023 3:33 PM EDT 11/08/2023 3:50 PM EDT Narrative Resulting Agency Comment Spec In Lab Lexii Berger CNM CHEMISTRY ORDERABLES Performing Organization Address [facility]/ZIP Co de Phone Number [facility] [place] [address] * Type and screen ([facility]/CGP/CARIE) (11/08/2023 3:33 PM EDT) ABORH Type A POSITIVE [facility] Patient BB History Found [facility] Expires at [id number] on: 11-08-2023 [facility] Ab Screen Interp Negative [facility] Blood 11/08/2023 3:33 PM EDT 11/08/2023 3:33 PM EDT Narrative [facility] - 11/08/2023 3:33 PM EDT This Type and Screen result is only valid at the [facility] Resulting Agency Comment Spec In Lab Lexii Khan Ab CNM BLOOD BANK LAB ORDER AMANDA [facility] [place] [address] * US OB Viability Transabdominal (11/08/2023 1:48 PM EDT) WORKSTATION ID [id number] RAD Anatomical Region Laterality Modality Pelvis, Abdomen Ultrasound 11/08/2023 1:46 PM EDT Impressions 11/08/2023 2:10 PM EDT 1st Trimester Summary Single living intrauterine with a gestational age of 9w 0d based on provided Clinical ZAYDA. The crown rump length corresponds to a gestational age of 8w 4d. Borderline tachycardia, heart rate obtained at 179 bpm and 185 bpm. I have personally reviewed the image(s) and the resident's interpretation and agree with the findings, Latoya Marquis MD at 11/08/2023 2:02 PM Thank you for letting us participate in the care of this patient. If you are a health care provider and have any questions regarding this report, please contact the number above. For patients who have questions, please contact the health ambulatory care nurse that requested your imaging first. ?Latoya Marquis E Sample Dye Mixer Electronically Signed Final Report ?? 11/08/2023 02:09 pm Narrative 11/08/2023 2:10 PM EDT OBSTETRICS REPORT ? (Signed Final 11/08/2023 02:09 pm) PATIENT INFO: ID #: ? [id number] ?: ??[birth year] (33 yrs)(F) Name: ? PREETHI Godoy ? Visit Date: 11/08/2023 01:46 pm ? LOUISE- ? FRANK PERFORMED BY: Attending: ?Kandis LIMA, Latoya Figueroa Resident: ? Abdi LIMA, Keenan Performed By: ? Darwin Fleming RDMS Referred By: ?PAUL Ashley [facility] Location: ? [place] SERVICE(S) PROVIDED: UOBVIB - ??Viability <14 weeks - Transabdominal - ?[id number] INDICATIONS: 9 weeks gestation of ?Z3A.09 at 5w1d by GS measurement on 10/11 (not c/w LMP), viability scan EVALUATION: Num Of Fetuses: ?1 Preg. Location: ?Intrauterine Gest. Sac: ? Visualized Yolk Sac: ?Visualized Pole: ?Visualized Heart Rate(bpm): ?? 179 Cardiac Activity: ?Observed, normal rhythm Presentation: ?Too early to evaluate Placenta: ?Too early to evaluate Amniotic Fluid UDAY FV: ?Too early to evaluate Comment: ?Heart rate: ??179 bpm and 185 bpm. --------- BIOMETRY: --------- CRL: ?20.0 ??mm ? G.Age: ?? 8w 4d ? ZAYDA: ?? 06/15/24 OB HISTORY: : ?3 ? Term: ?? 1 ? SAB: ?? 1 GESTATIONAL AGE: LMP: ? 11w 6d ?Date: ??08/17/23 ? ZAYDA: ?05/23/24 Clinical ZAYDA: ??9w 0d ? ZAYDA: ?06/12/24 Best: ?9w 0d ?Det. By: ??Clinical ZAYDA ? ZAYDA: ?06/12/24 CERVIX UTERUS ADNEXA: Right Ovary Size(cm) ? 3.5 ??x ?? 3.7 ?x ??1.8 ? Vol(ml): ??12.2 Visualized Left Ovary Size(cm) ? 4.5 ??x ?? 3.5 ?x ??3.9 ? Vol(ml): ??32.2 Limited visualization Cul De Sac No fluid seen Procedure Note Latoya Marquis MD - 11/08/2023 OBSTETRICS REPORT (Signed Final 11/08/2023 02:09 pm) PATIENT INFO: ID #: [id number] : [birth year] (33 yrs)(F) Name: PREETHI Godoy Visit Date: 11/08/2023 01:46 pm MARIO MARIE PERFORMED BY: Attending: Latoya Marquis MD Resident: Abdi LIMA [facility] Performed By: Darwin Fleming RDMS Referred By: PAUL MENDEZ Location: [place] SERVICE(S) PROVIDED: UOBVIB - Viability <14 weeks - Transabdominal - [id number] INDICATIONS: 9 weeks gestation of Z3A.09 at 5w1d by GS measurement on 10/11 (not c/w LMP), viability scan EVALUATION: Num Of Fetuses: 1 Preg. Location: Intrauterine Gest. Sac: Visualized Yolk Sac: Visualized Pole: Visualized Heart Rate(bpm): 179 Cardiac Activity: Observed, normal rhythm Presentation: Too early to evaluate Placenta: Too early to evaluate Amniotic Fluid UDAY FV: Too early to evaluate Comment: Heart rate: 179 bpm and 185 bpm. --------- BIOMETRY: --------- CRL: 20.0 mm G.Age: 8w 4d ZAYDA: 06/15/24 OB HISTORY: : 3 Term: 1 SAB: 1 GESTATIONAL AGE: LMP: 11w 6d Date: 08/17/23 ZAYDA: 05/23/24 Clinical ZAYDA: 9w 0d ZAYDA: 06/12/24 Best: 9w 0d Det. By: Clinical ZAYDA ZAYDA: 06/12/24 CERVIX UTERUS ADNEXA: Right Ovary Size(cm) 3.5 x 3.7 x 1.8 Vol(ml): 12.2 Visualized Left Ovary Size(cm) 4.5 x 3.5 x 3.9 Vol(ml): 32.2 Limited visualization Cul De Sac No fluid seen IMPRESSION 1st Trimester Summary Single living intrauterine with a gestational age of 9w 0d based on provided Clinical ZAYDA. The crown rump length corresponds to a gestational age of 8w 4d. Borderline tachycardia, heart rate obtained at 179 bpm and 185 bpm. I have personally reviewed the image(s) and the resident's interpretation and agree with the findings, Latoya Marquis MD at 11/08/2023 2:02 PM Thank you for letting us participate in the care of this patient. If you are a health care provider and have any questions regarding this report, please contact the number above. For patients who have questions, please contact the health ambulatory care nurse that requested your imaging first. Latoya Marquis, E Sample Dye Mixer Electronically Signed Final Report 11/08/2023 02:09 pm Paul Mendez MD IM US OB ORDERABLE S * Scan Doc: Lab (10/31/2023 12:00 AM EDT) Narrative 10/31/2023 12:00 AM EDT Ordered by an unspecified provider. Scanning Provider MEDIA MGR SCAN EXT O RDR/RSLT * Model Builder Cytology Final Report (08/04/2020 10:25 AM EDT) Model Builder Cytology Final Report [id number] ? Location: 5L The signing pathologist has (i) examined the relevant preparation(s) for the specimen(s) and (ii) rendered or confirmed the diagnosis(es). . ? Model Builder Final DIAGNOSIS Infection and/or Reactive Repair Process Note: Reactive changes are present in the epithelial cells (benign cellular changes). This Pap test is negative for intraepithelial lesion or malignancy. (NILM) For consensus guidelines for the management of cervical cancer screening test results, please see: ?? http://www.asccp.o rg . Electronically signed by: ?Reji Sandoval MD Verified: ??08/16/2020 12:02 ??Cytopathologist Performed at: ??-[facility] Dept. of Pathology, [place], [place] HPV RESULTS HPV testing either not indicated or not requested by clinician. STATEMENT OF ADEQUACY Specimen submitted is satisfactory. Endocervical component present. CLINICAL INFORMATION HPV Option: ?Reflex HPV CT/NG Option: ?Yes Preparation: ? Liquid based Pap Specimen Source: ? Cervical/Endocervi shira LMP: ? IUD Hysterectomy: ?No : ?No : ?No I.U.D.: ?No Pelvic Radiation: ?No Hist Abnl Pap/Biopsy: ?No Prior PHARMACY GENERAL MANAGER Therapy: ? No Hist of HPV Vaccine: ? No ICD Diagnosis: ? Z12.4 Encounter for screening for malignant neoplasm of cervix Clinical Data, Significant Therapy and Clinical Impression ?? : ?_ This Pap Test has been evaluated with the assistance of the [employer] Pap Test Imaging System. Note: The Pap test is a screening test for cervical cancer with an inherent false-negative rate dependent upon several variables. For further information please contact the [facility] Laboratory. Reference: Rosy ORTIZ. Windows Vmware Administrator of Pap Smear Results. In: Chelsey BS, Joshua HH, ed. The Pap Smear. [place]: Lázaro, 2002: 71-77. [facility] 08/04/2020 10:2 5 AM EDT Malena Hernandez THREAD INSPECTOR PATHOLOGY/CYT OLOGY ORDERABLES [facility] [place] [address] from Last 3 Months or Most Recently [...] is based on Patients wishes. Care Teams Census Clerk Relationship Specialty Start Date End Date Richard Rasheed MD [address] [place] [address] PCP - General Family Medicine 07/05/23
--- OUTSIDE RECORDS SUMMARY | 2024-01-23 17:53 | XMS_ITS | Encounter Summary ---
Author Organization [facility] Address [facility] [place] [address] Care Team Providers Care Inventory Control Specialist Name Role Phone Richard Rasheed MD Primary Care Provider [phone] Encounter Details Date Type Department Care Team (Latest Contact Info) Description 12/27/2023 Travel Social History Tobacco Use Types Packs/Day [...] doctor or pharmacy? Never 10/12/2023 [facility] Utilities Answer Date Recorded In the past 12 months has e [employer], gas, oil, or water [employer] threatened to shut off services in your [...] any time in the past 12 m onths, were you homeless or living in a [...] 01/24/2024 1:00 PM ED[place] [address] Walt Bay MD [facility] OBSTETRICS AND GYNECOLOGY [place], [place] [id number] 01/24/2024 2:00 PM EDT Routine Obstetrics [place] [address] Taty Ramos MD [facility] MATERNAL & [place] [address] 02/07/2024 9:00 AM EDT Appointment Radiology at [address] Walt Bay MD [facility] DR OBSTETRICS [place] [address] 02/07/2024 10:15 AM EDT Routine Obstetrics and Gynecology at [address] Linda Diaz MD [facility] MATERNAL [place] [address] 03/12/2024 10:45 AM EST Office Visit Endocrinology at [address] James Barth DO [facility] DR ENDOCRINOLOGY [place] [address] 05/23/2024 [place] [address] Maite Malloy MD [facility] DR OBSTETRICS AND [place] [address] documented as of this encounter Visit Diagnoses Not on filedocumented in this encounter Care Teams Inventory Control Specialist Relationship Specialty Start Date End Date Richard Rasheed MD [address] [place] [address] PCP - General Family Medicine 07/05/23 documented as of this encounter
--- OUTSIDE RECORDS SUMMARY | 2024-01-23 17:53 | XMS_ITS | Encounter Summary ---
Author Organization [facility] [place] [address] Care Team Providers Care Button Cutter Name Role Phone Rcihard Rasheed MD Primary Care Provider [phone] Encounter Details Date Type Department Care Team (Late st Contact Info) Description 11/29/2023 Telephone [place] [phone] Suzanne Bhatti, [facility] OBSTETRICS & [place] [address] Social History Tobacco Use Types Packs/Day Years [...] from your doctor or pharmacy? Never 10/12/2023 [facility] Utilities Answer Date Recorded In the past 12 months has e [employer], gas, oil, or water [employer] threatened to shut off services in your [...] any time in the past 12 m [facility], were you homeless or living in a [place] health care facility (including now)? Yes 10/12/2023 Estimated Date of Delivery Comme nts Yes 06/12/2024 Based on Ultraso und Sex and Gender Information Value Date Recorded Sex Assigned at Female 10/12/2023 9:44 AM EDT Gender Identity Female 10/12/2023 9:44 AM EDT Sexual Orientation Straight 10/12/2023 9: 44 AM EDT documented as of this encounter Miscellaneous Notes * Telephone Encounter - Suzanne Bhatti DO - 11/29/2023 10:59 PM EDT Telephone Note: Andree Hummel is a 33 y.o. at 12w0d who called for vertigo. S: Hydrating well. No LOC. Contractions: none Bleeding: none LOF: none O: NAD A/P: #Vertigo - Positional v postviral - See PCP in AM - Continue to hydrate well Suzanne Bhatti DO, PGY-3 Obstetrics and Gynecology 11/29/23 documented in this encounter Plan of Treatment Upcoming Encounters Date Type Department Care Team (Late st Contact Info) Description 01/24/2024 1:00 PM EDT Appointment Radiology at [address] Walt Bay MD [facility] OBSTET[place] [address] 01/24/2024 2:00 PM EDT Routine Obstetrics and Gynecology at [address] Taty Ramos MD [facility] MATERNAL & [place] [address] 02/07/2024 9:00 AM EDT Appointment Radiology at [place] [address] Walt Bay MD [facility] OBSTETRICS [place] [address] 02/07/2024 10:15 AM EDT Routine Obstetrics and Gynecology at [address] Linda Diaz MD [facility] [place] [address] 03/12/2024 10:45 AM EST Office Visit Endocrinology at [address] James Barth DO [facility] [place] [address] 05/23/2024 [place] [phone] Maite Malloy MD [facility] DR OBSTETRICS [place] [address] documented as of this encounter Visit Diagnoses Not on filedocumented in this encounter Care Teams Button Cutter Relationship Specialty Start Date End Date Richard Rasheed MD [address] [place] [address] PCP - General Family Medicine 07/05/23 documented as of this encounter
--- OUTSIDE RECORDS SUMMARY | 2024-01-23 17:53 | XMS_ITS | Encounter Summary ---
Author Organization [facility] [place] [address] Care Team Providers Care Psychology Assistant Name Role Phone Richard Rasheed MD Primary Care Provider [phone] Encounter Details Date Type Department Care Team (Late st Contact Info) Description 11/22/2023 Telephone Obstetrics [place] [address] Suri Menon RN Social History Tobacco Use Types Packs/Day [...] doctor or pharmacy? Never 10/12/2023 [facility] Utilities Answer Date Recorded In the past 12 months has [facility] [employer], [employer], oil, or water [employer] threatened to shut off services in your [...] any time in the past 12 m [facility], were you homeless or living in a long term (including now)? Yes 10/12/2023 Estimated Date of Delivery Comme nts Yes 06/12/2024 Based on Ultraso und Sex and Gender Information Value Date Recorded Sex Assigned at Female 10/12/2023 9:44 AM EDT Gender Identity Female 10/12/2023 9:44 AM EDT Sexual Orientation Straight 10/12/2023 9: 44 AM EDT documented as of this encounter Miscellaneous Notes * Telephone Encounter - Suri Menon RN - 11/22/2023 9:00 AM EDT TC from Andree Hummel 11w0d [facility] Team Next OB visit 12/26 Reason for call: Vaginal bleeding Andree states that she had spotting a couple of days ago. She states she is calling today in response to a message she received from secretary to the vice president staff regarding scheduling a follow up for vaginal bleeding. She states she has had no further vaginal bleeding or spotting, denies uterine cramping. Advised that no appointment is needed at this time. Andree will continue to monitor and will call back if she has any further vaginal bleeding or spotting. documented in this encounter Plan of Treatment Upcoming Encounters Date Type Department Care Team (Late st Contact Info) Description 01/24/2024 1:00 PM EDT Appointment Radiology at [place] [phone] Walt Bay MD [facility] OBSTETRICS [place] [address] 01/24/2024 2:00 PM EDT Routine Obstetrics and Gynecology at [address] Taty Ramos MD [facility] MATERNAL & [place] [address] 02/07/2024 9:00 AM EDT Appointment Radiology at [address] Walt Bay MD [facility] OBSTETRICS [place] [address] 02/07/2024 10:15 AM EDT Routine Obstetrics and Gynecology at [address] Linda Diaz MD [facility] MATERNAL [place] [address] 03/12/2024 10:45 AM EST Office Visit Endocrinology at [address] James Barth DO [facility] [place] [address] 05/23/2024 Hospital [facility] [place] [phone] Maite Malloy MD [facility] DR OBSTETRICS [place] [address] documented as of this encounter Visit Diagnoses Not on filedocumented in this encounter Care Teams Psychology Assistant Relationship Specialty Start Date End Date Richard Rasheed MD [address] [place] [address] PCP - General Family Medicine 07/05/23 documented as of this encounter
--- OUTSIDE RECORDS SUMMARY | 2024-01-23 17:53 | XMS_ITS | Encounter Summary ---
Author Organization [facility] Address [facility] [place] [address] Care Team Providers Care Air Pollution Analyst Name Role Phone Richard Rasheed MD Primary Care Provider [phone] Encounter Details Date Type Department Care Team (Latest Contact Info) Description 11/08/2023 1:29 PM EDT - 11/08/2023 11:59 PM EDT Hospital [place] [phone] Paul Mendez MD [facility] OBSTETRICS [place] [address] care in first trimester Discharge Disposition: Home Social History Tobacco Use [...] from your doctor or pharmacy? Never 10/12/2023 [facility] Utilities Answer Date Recorded In the past 12 months has e [email or web address], gas, oil, or water company threatened to [...] any time in the past 12 m [facility], were you homeless or living in [...] Sig Dispensed Refills Start Date End Date vitamin with mhuyulgl-Yc-Irbn-FA Tablet Take by mouth. calcium carbonate (OS-LEMUEL) 648 mg calcium tablet Take 650 mg by mouth 3 times daily (with meals). venlafaxine (EFFEXOR-XR) 150 mg Capsule, Sust. Release 24 hr Take 1 capsule by mouth daily. 30 capsule 2 07/27/2021 11/15/2023 mirtazapine (Remeron) 15 mg Tablet Take 1 tablet by mouth nightly. 30 tablet 1 07/27/2021 11/15/2023 cyanocobalamin, vitamin B-12, 500 mcg Tablet Take 1 tablet by mouth daily. 100 tablet 3 05/10/2021 11/15/2023 ferrous sulfate 324 mg (65 mg iron) Tablet, Delayed Release (E.C.) Take 1 tablet by mouth every evening. 100 tablet 05/10/2021 11/15/2023 celecoxib (CELEBREX) 200 mg CapsuleIndications:Scap ular dyskinesis Take 1 capsule by mouth daily. 30 capsule 1 12/24/2018 11/15/2023 levothyroxine sodium (LEVOTHYROXINE ORAL) 225 mcg. 0 05/23/2017 024 documented as of this encounter Plan of Treatment Upcoming Encounters Date Type Department Care Team (Late st Contact Info) Description 01/24/2024 1:00 PM [place] [address] Walt Bay MD [facility] DR OBSTET[place]ICS [place] [address] 01/24/2024 2:00 PM EDT Routine Obstetrics [place] [address] Taty Ramos MD [facility] DR MATERNAL & [place] [address] 02/07/2024 9:00 AM [place] [address] Walt Bay MD [facility] OBSTETRICS [place] [address] 02/07/2024 10:15 AM EDT Routine Obstetrics [place] [address] Linda Diaz MD [facility] [place] [address] 03/12/2024 10:45 AM EST Office [place] [address] James Barth DO [facility] [place] [address] 05/23/2024 [place] [address] Maite Malloy MD [facility] DR OBSTET[place]ICS [place] [address] documented as of this encounter Procedures Procedure Name Priority Date/Time Associated Diagnosis Comments US OB VIABILITY TRANSABDOMINAL Routine 11/08/2023 1:48 PM EDT care in first trimester documented in this encounter Results * US OB Viability Transabdominal (11/08/2023 1:48 PM EDT) WORKSTATION ID [id number] RAD Anatomical Region Laterality Modality Pelvis, Abdomen [...] who have questions, please contact the health hospice care transitions coordinator that requested your imaging first. ?Latoya Marquis, [facility] Fiberglass Pipe Covering Supervisor Electronically Signed Final Report ?? 11/08/2023 02:09 pm Narrative 11/08/2023 2:10 PM EDT OBSTETRICS REPORT ? (Signed Final 11/08/2023 02:09 pm) PATIENT INFO: ID #: ? [id number] ?: ??[birth year] (33 yrs)(F) Name: ? IDAURVASHI Walt ? Visit Date: 11/08/2023 01:46 pm ? LOUISE- ? FRANK PERFORMED BY: Attending: ?Kandis LIMA, Latoya Figueroa Resident: ? Abdi LIMA, [facility] Performed By: ? Darwin Fleming RDMS Referred By: ?PAUL MENDEZ Location: ? [place] SERVICE(S) PROVIDED: UOBVIB - ??Viability <14 weeks - Transabdominal - ?[id number] INDICATIONS: 9 weeks gestation of ?Josh at 5w1d by GS measurement on 10/11 [...] GESTATIONAL AGE: LMP: ? 11w 6d ?Date: ??5/3/24 ? ZAYDA: ?05/23/24 Clinical ZAYDA: ??9w 0d [...] 11/08/2023 02:09 pm) PATIENT INFO: ID #: [id number] : [birth year] (33 yrs)(F) Name: PREETHI Godoy Visit Date: 11/08/2023 01:46 pm MARIO MARIE PERFORMED BY: Attending: Latoya Marquis MD Resident: Abdi LIMA, [facility] Performed By: Darwin Fleming RDMS Referred By: PAUL MENDEZ Location: [place] SERVICE(S) PROVIDED: UOBVIB - Viability <14 weeks - Transabdominal - [id number] INDICATIONS: 9 weeks gestation of Z3A.09 at [...] Latoya Marquis MD at 11/08/2023 2:02 PM Electronically signed by: Latoya Marquis MD, [facility] ([phone]), at 11/08/2023 2:02 PM Thank you for letting us participate in the care of this patient. If you are a health care provider and have any questions regarding this report, please contact the number above. For patients who have questions, please contact the health hospice care transitions coordinator that requested your imaging first. Latoya Marquis E Fiberglass Pipe Covering Supervisor Electronically Signed Final Report 11/08/2023 02:09 pm Paul Mendez MD IMG US OB ORDERABLE S documented in this encounter Visit Diagnoses Diagnosis care in first trimester documented in this encounter Care Teams Air Pollution Analyst Relationship Specialty Start Date End Date Richard Rasheed MD [address] [place] [address] PCP - General Family Medicine 07/05/23 documented as of this encounter
--- OUTSIDE RECORDS SUMMARY | 2024-01-23 17:53 | XMS_ITS | Encounter Summary ---
Author Organization [facility] Address [facility] [place] [address] Care Team Providers Care Setter Molding And Coremaking Machines Name Role Phone Richard Rasheed MD Primary Care Provider [phone] Encounter Details Date Type Department Care Team (Late st Contact Info) Description 10/31/2023 Notes Only [place] [phone] Tye Gamble MD [facility] OBSTETRICS & [place] [address] Social History Tobacco Use Types Packs/Day Years [...] from your doctor or pharmacy? Never 10/12/2023 [facility] Utilities Answer Date Recorded In the past 12 months has e [employer], gas, oil, or water [employer] threatened to shut off services in your [...] any time in the past 12 m [facility], were you homeless or living in a group home (including now)? Yes 10/12/2023 Estimated Date of Delivery Comme nts Yes 06/12/2024 Based on Ultraso und Sex and Gender Information Value Date Recorded Sex Assigned at Female 10/12/2023 9:44 AM EDT Gender Identity Female 10/12/2023 9:44 AM EDT Sexual Orientation Straight 10/12/2023 9: 44 AM EDT documented as of this encounter Progress Notes * Tye Gamble MD - 10/31/2023 11:45 AM EDT Beta List Progress Note Andree Hummel is a 33 y.o. at 7w6d (by GS measurement) who reported having scant vaginal spotting at her new OB visit. At new OB visit TVUS demonstrated a gestational sac, no yolk sac, therefore PUL. Beta hcg trend 10/06/2023: 150 (per patient report, drawn at urgent care) 10/29/2023: Tammy 46,514 Over [facility] Andree reports having no further vaginal bleeding or abdominal pain. Beta hcg has appropriately risen, which is promising for viable IUP. Currently scheduled for 11/07 TVUS viability with appointment to follow. Will ask schedulers to move up appointment to this week if able to give patientpeace of mind regarding viability. Patient aware of ectopic precautions. Tye Gamble MD, PGY4 Obstetrics and Gynecology 10/31/2023 documented in this encounter Plan of Treatment Upcoming Encounters Date Type Department Care Team (Late st Contact Info) Description 01/24/2024 1:00 PM EDT Appointment Radiology at [place] [phone] Walt Bay MD [facility] DR [place]STET[place] [address] 01/24/2024 2:00 PM EDT Routine Obstetrics and Gynecology at [address] Taty Ramos MD [facility] MATERNAL & [place] [address] 02/07/2024 9:00 AM EDT Appointment Radiology at [place] [phone] Walt Bay MD [facility] DR OBSTETRICS [place] [address] 02/07/2024 10:15 AM EDT Routine Obstetrics and Gynecology at [place] [phone] Linda Diaz MD [facility] [place] [address] 03/12/2024 10:45 AM EST Office [place] [phone] James Barth DO [facility] [place] [address] 05/23/2024 Hospital [place] [phone] Maite Malloy MD [facility] OBSTETRICS [place] [address] documented as of this encounter Visit Diagnoses Not on filedocumented in this encounter Care Teams Setter Molding And Coremaking Machines Relationship Specialty Start Date End Date Richard Rasheed MD [address] [place] [address] PCP - General Family Medicine 07/05/23 documented as of this encounter
--- OUTSIDE RECORDS SUMMARY | 2024-01-23 17:53 | XMS_ITS | Encounter Summary ---
Author Organization [facility] [place] [address] Care Team Providers Care Hosting Engineer Name Role Phone Richard Rasheed MD Primary Care Provider [phone] Encounter Details Date Type Department Care Team (Latest Contact Info) Description 11/15/2023 4:05 PM EDT Laboratory Appointment Lab [address] [place] [address] History of delivery, currently ; Hypothyroidism, postsurgical Social History Tobacco Use Types [...] doctor or pharmacy? Never 10/12/[address] [facility] Utilities Answer Date Recorded In the past 12 months has [employer] oil, or water [employer] threatened to shut off services in your [...] any time in the past 12 m [facility], were you homeless or living in a fdc (including now)? Yes 10/12/2023 Estimated Date of [...] 01/24/2024 1:00 PM EDT Appointment [place] [phone] Walt Bay MD [facility] OBSTETRICS AND GYNECOLOGY [place], [place] [id number] 01/24/2024 2:00 PM EDT Routine Obstetrics and Gynecology at [place] [phone] Taty Ramos MD [facility] MATERNAL & [place] [address] 02/07/2024 9:00 AM EDT Appointment Radiology at [address] Walt Bay MD [facility] OBSTETRICS [place] [address] 02/07/2024 10:15 AM EDT Routine Obstetrics [place] [address] Linda Diaz MD [facility] [place]NAL [place] [address] 03/12/2024 10:45 AM EST Office Visit Endocrinology at [address] James Barth DO [facility] [place] [address] 05/23/2024 Hospital Encounter Birthing [place] [phone] Maite Malloy MD [facility] DR OBSTETRICS [place] [address] documented as of this encounter Procedures Procedure Name Priority Date/Time Associated Diagnosis Comments PANORAMA SCREEN Routine 11/15/2023 4:10 PM EDT History of delivery, currently TSH [place] Routine 11/15/2023 4:10 PM EDT History of delivery, currently Hypothyroidism, postsurgical T4, FREE Routine 11/15/2023 4:10 PM EDT documented in this encounter Results * T4, free (11/15/2023 4:10 PM EDT) Free T4 0.96 0.93 - 1.70 ng/dL [facility] Comment: Reference Interval (ng/dL): Females: ??First Trimester: 0.97-1.68 ??Second Trimester: 0.77-1.51 ??Third Trimester: 0.77-1.49 Blood 11/15/2023 4:10 PM EDT 11/15/2023 4:30 PM EDT Narrative Resulting Agency Comment Spec In Lab E Jessica Bay MD CHEMISTRY ORDERAB LES [facility] [place] [address] * Panorama Screen (11/15/2023 4:10 PM EDT) Ramesh Report Summary LOW RISK [facility] Comment:LOW RISK Ramesh Report Note See Notes [facility] Trisomy 21 Result (ROM) Low Risk [facility] Trisomy 18 Result (ROM) Low Risk [facility] Trisomy 13 Result (ROM) Low Risk [facility] Monosomy X Result (ROM) Low Risk [facility] Triploidy Result (ROM) Low Risk [facility] Sex of Fetus Female [facility] Ramesh Footnotes See Notes MAR Y [facility] Comment: Testing Methodology DNA isolated from maternal blood, which contains placental DNA, is amplified at specific loci using a targeted PCR assay and is sequenced using a high-throughput sequencer. fraction is determined using a proprietary algorithm incorporating data from single nucleotide polymorphism-based (SNP-based) next-generation sequencing [Pergaannie E et al. Obstet Gynecol. 2014 Nov;124(2 Pt 1):210-8]. If there is sufficient fraction, sequencing data is analyzed using a proprietary SNP-based algorithm to determine the copy number for chromosomes 13, 18, 21, X and Y. If ordered, specific microdeletions will be evaluated using similar methodology [George BRIONES et al. Am J Obstet Gynecol. 2015 Mar;212(3):332.e1-9]. If the fraction is insufficient, signal enhancement [...] appropriate. Disclaimers This test was performed by [employer]. [address], [place] [address] (CLIA ID [id number]). The performance characteristics of this test were developed by [employer]. This test has not been cleared or approved by the U.S. Food and Drug Administration (FDA). This laboratory is regulated under CLIA as qualified to perform high-complexity testing. ??2020 [employer]. All Rights Reserved. Please refer to the attached PDF report Reviewed By: Isabel Ascencio M.D., Ph.D., [facility], Senior Prop Sawyer [facility] Wallpaper Embosser Helper: Eric Weinberg, Ph.D., [facility] IF THE ORDERING PROVIDER HAS QUESTIONS OR WISHES TO DISCUSS THE RESULTS, PLEASE CONTACT US AT [phone] #[phone]. Ask for the NIPT genetic counselor cushion sewer. Blood 11/15/2023 4:10 PM EDT 11/16/2023 7:47 AM EDT E Jessica Bay MD LAB SEND OUT VON JAVIER Performing Organization Address City/[facility]/ZIP Co de Phone Number [facility] [place] [address] * (ABNORMAL) TSH [place] (11/15/2023 4:10 PM EDT) Thyroid Stimulating Hormone 35.00(H) 0.27 - 4.20 mcIU/mL [facility] Comment: Reference Interval (mcIU/mL): Females: ??First Trimester: 0.23-3.88 ??Second Trimester: 0.22-3.90 ??Third Trimester: 0.44-4.66 Blood 11/15/2023 4:10 PM EDT 11/15/2023 4:24 PM EDT Narrative Resulting Agency Comment Spec In Lab E Jessica Bay MD CHEMISTRY ORDERAB LES Performing Organization Address City/[facility]/ZIP Co de Phone Number [facility] [place] [address] documented in this encounter Visit Diagnoses Diagnosis History of delivery, currently with history of pre-term labor Hypothyroidism, postsurgical Postsurgical hypothyroidism documented in this encounter Care Teams Hosting Engineer Relationship Specialty Start Date End Date Richard Rasheed MD [address] [place] [address] PCP - General Family Medicine 07/05/23 documented as of this encounter
--- OUTSIDE RECORDS SUMMARY | 2024-01-23 17:53 | XMS_ITS | Encounter Summary ---
Author Organization [facility] Address [facility] [place] [address] Care Team Providers Care Order Processing Specialist Name Role Phone Richard Rasheed MD Primary Care Provider [phone] Reason for Referral * Consultation (Routine) - Closed Specialty Diagnoses / Procedures Referred By Contac t Referred To Contact Obstetrics and Gynecology Diagnoses History of delivery, currently Hypothyroidism, postsurgical GC (11/21-12/05) Walt Briseno MD [facility] DR OBSTETRICS [place] [address] [facility] [place] [address] [place] [address] Referral ID Status Reason Start Date Expiration Date V isits Requested Visits Authorized [id number] Closed Consult, Test & Treat 11/15/2023 11/14/2024 1 1 Reason for Visit * Reason Comments Establish Care Encounter Details Date Type Department Care Team (Late st Contact Info) Description 11/15/2023 3:00 PM EDT Office Visit Obstetrics [place] [address] Walt Briseno MD [facility] OBSTET[place]ICS [place] [address] History of delivery, currently ; Hypothyroidism, postsurgical [...] your doctor or pharmacy? Never 10/12/2023 [facility] Utilities Answer Date Recorded In the past 12 months has th e [employer], oil, or water [employer] threatened to shut off services in your [...] any time in the past 12 m [facility] [facility], were you homeless or living in a [...] Sign Reading Time Taken Comments Blood Pressure 104/60 11/15/2023 3:07 PM EDT Pulse - - Temperature - - Respiratory Rate - - Oxygen Saturation - - Inhaled Oxygen Concentration - - Weight 85.7 kg (189 lb) 11/15/2023 3:07 PM EDT Height - - Body Mass Index 28.74 04/26/2021 11:20 AM EST documented in this encounter Progress Notes * Walt Briseno MD - 11/15/2023 3:00 PM EDT Diagnosis/Maternal Medicine Consult Note Preethi Hummel is a 33 y.o. year old female who is at 10w0d gestation. She isseen today for maternal- medicine consultation at the request of Lexii Berger CNM for evaluation. Her history is remarkable for unatended deliveries at home: 20 weeks, and 31w5d. She also has a history of surgical hypothyroidism, and is not adequately replaced with thyroid hormone at this time. Review of Systems Constitutional:feels well Movement: too early Contractions: none Leaking: None Bleeding: None I reviewed the patient's medical, surgical and family history and updated it as appropriate. I alsoreviewed and updated as appropriate her allergies and medications. I reviewed her record and ultrasound reports to date. Physical Exam BP 104/60 Wt 85.7 kg (189 lb) LMP 08/17/2023 BMI 28.74 kg/m?? General: alert, well appearing, in no apparent distress, oriented to person, place and time HEENT: normocephalic, atraumatic Abdom: soft, nontender Extremities: no edema Neurologic:alert, oriented, normal speech, no focal findings or movement disorder noted Psychiatric: Affect is Appropriate. BSUS: viable IUP Assessment and Recommendations: 33 y.o. year old female at 10w0d gestation, referred for counseling regarding transfer of care to [facility] team. Plan to increase synthroid to 275mcg. Will take two tablets of 250 today and tomorrow, then increase to new prescription. Plan repeat TSH in 4 weeks.. Desires cfDNA screening today. Plan cervical surveillance due to prior PTD. Consider vaginal progesterone. RTC 4 weeks for PNV. I appreciate the opportunity to be involved in this patients care, and am available if further questions should arise. Walt BRISENO MD 11/15/2023 Cc: Lexii Berger CNM * Cedric Espinoza LPN - 11/15/2023 2:45 PM EDT __X__ Patient not reached, will update meds, allergies, tobacco, pharmacy, pain/depression during visit. ____Patient reached and the following information was reviewed/obtained per protocol: ___Confirmed patient name and date of ___Confirmed upcoming appt ___Reviewed medications, allergies, tobacco, pharmacy, pain/depression Confirmed has completed any pre-visit questionnaires If has not received required previsit questionnaires, send via [facility] Other information or concerns: Called at [phone] documented in this encounter Plan of Treatment Upcoming Encounters Date Type Department Care Team (Late st Contact Info) Description 01/24/2024 1:00 PM EDT [place] [address] Walt Briseno MD [facility] DR OBSTETRICS [place] [address] 01/24/2024 2:00 PM EDT Routine Obstetrics and Gynecology at [address] Taty Ramos MD [facility] MATERNAL & [place] [address] 02/07/2024 9:00 AM EDT Appointment Radiology at [place] [address] Walt Briseno MD [facility] DR OBSTETRICS [place] [address] 02/07/2024 10:15 AM EDT Routine Obstetrics [place] [address] Linda Diaz MD [facility] [place] [address] 03/12/2024 10:45 AM EST Office Visit Endocrinology at [place] [address] James Barth DO [facility] [place] [address] 05/23/2024 Hospital Encounter Birthing [place] [phone] Maite Malloy MD [facility] DR OBSTETRICS [place] [address] Scheduled Orders Name Type Priority Associated Diagnoses Orde r Schedule US OB Cervical Length Transvaginal Imaging Routine History of delivery, currently Expected: 01/10/2024, Expires: 07/11/2024 US OB Detailed Morphology Imaging Routine History of delivery, currently Expected: 01/24/2024 (Approximate), Expires: 07/25/2024 US OB Cervical Length Transvaginal Imaging Routine History of delivery, currently Expected: 02/07/2024, Expires: 08/08/2024 Scheduled Referrals Name Type Priority Associated Diagnoses Orde r Schedule Referral to OB Genetic Counseling Outpatient Referral Routine History of delivery, currently Hypothyroidism, postsurgical Ordered: 11/15/2023 documented as of this encounter Results * US OB Cervical Length Transvaginal (12/27/2023 1:31 PM EDT) [employer] WORKSTATION ID [id number] DH RAD Anatomical Region Laterality Modality Pelvis, [...] who have questions, please contact the health healthcare associate that requested your imaging first. ? Linda Diaz, Radio Station Operator Electronically Signed Final Report ?? 12/27/2023 01:45 pm Narrative 12/27/2023 1:45 PM EDT OBSTETRICS REPORT ?(Signed Final 12/27/2023 01:45 pm) PATIENT INFO: ID #: ? [id number] ?: ??[birth year] (33 yrs)(F) Name: ? SORCHA E ? Visit Date: 12/27/2023 01:34 pm ? LOUISE- ? FRANK PERFORMED BY: Performed By: ? Car Can RDMS Attending: ?Emily LIMA, Linda Figueroa Referred By: ?[facility] Location: ? [place] SERVICE(S) PROVIDED: UOBTVCER - Transvaginal ??2nd Trimester - ?16819 Cervical Length - [id number] INDICATIONS: 16 weeks gestation of ?Z3A.16 h/o [...] 12/27/2023 01:45 pm) PATIENT INFO: ID #: [id number] : [birth year] (33 yrs)(F) Name: PREETHI Godoy Visit Date: 12/27/2023 01:34 pm SAMANTHA FRANK PERFORMED BY: Performed By: Car Can RDMS Attending: Linda Diaz MD Referred By: Walt BRISENO Location: [place] SERVICE(S) PROVIDED: UOBTVCER - Transvaginal 2nd Trimester - 12648 Cervical Length - [id number] INDICATIONS: 16 weeks gestation of Z3A.16 h/o [...] who have questions, please contact the health healthcare associate that requested your imaging first. Linda Diaz, Radio Station Operator Electronically Signed Final Report 12/27/2023 01:45 pm E Jessica Briseno MD [facility] OB ORDERAB LES * (ABNORMAL) TSH [place] (11/15/2023 4:10 PM EDT) Thyroid Stimulating Hormone 35.00(H) 0.27 - 4.20 mcIU/mL [facility] Comment: Reference Interval (mcIU/mL): Females: ??First Trimester: 0.23-3.88 ??Second Trimester: 0.22-3.90 ??Third Trimester: 0.44-4.66 Blood 11/15/2023 4:10 PM EDT 11/15/2023 4:24 PM EDT Narrative Resulting Agency Comment Spec In Lab E Jessica Briseno MD CHEMISTRY ORDERAB LES [facility] [place] [address] * Panorama Screen (11/15/2023 4:10 PM EDT) Ramesh Report Summary LOW RISK [facility] Comment:LOW RISK Ramesh Report Note See Notes [facility] Trisomy 21 Result (ROM) Low Risk [facility] Trisomy 18 Result (ROM) Low Risk [facility] Trisomy 13 Result (ROM) Low Risk [facility] Monosomy X Result (ORM) Low Risk [facility] Triploidy Result (ROM) Low Risk [facility] Sex of Fetus Female [facility] Ramesh Footnotes See Notes MAR [...] appropriate. Disclaimers This test was performed by [employer]. [address], [place] [address] (CLIA ID [id number]). The performance characteristics of this test were developed by [employer]. This test has not been cleared or approved by the U.S. Food and Drug Administration (FDA). This laboratory is regulated under CLIA as qualified to perform high-complexity testing. ??202 [employer]. All Rights Reserved. Please refer to the attached PDF report Reviewed By: Isabel Ascencio M.D., Ph.D., [facility], Senior Finished Cigar Maker [facility] Restaurant Assistant Manager: Eric Weinberg, Ph.D., [facility] IF THE ORDERING PROVIDER HAS QUESTIONS OR WISHES TO DISCUSS THE RESULTS, PLEASE CONTACT US AT [phone] #[phone]. Ask for the NIPT genetic counselor identification printing machine setter. Blood 11/15/2023 4:10 PM EDT 11/16/2023 7:47 AM EDT E Jessica Briseno MD LAB SEND OUT VON JAVIER [facility] [place] [address] documented in this encounter Visit Diagnoses Diagnosis History of delivery, currently with history of pre-term labor Hypothyroidism, postsurgical Postsurgical hypothyroidism History of delivery, currently with history of pre-term labor documented in this encounter Care Teams Order Processing Specialist Relationship Specialty Start Date End Date Richard Rasheed MD [address] [place] [address] PCP - General Family Medicine 07/05/23 documented as of this encounter
--- OUTSIDE RECORDS SUMMARY | 2024-01-23 17:53 | XMS_ITS | Encounter Summary ---
Author Organization [facility] Address [facility] [place] [address] Care Team Providers Care Box Printer Name Role Phone Richard Rasheed MD Primary Care Provider [phone] Reason for Referral * Consultation (Routine) - Authorized Specialty Diagnoses / Procedures Referred By Contwillow t Referred To Contact Endocrinology Diagnoses Hypothyroidism, postsurgical Maite Marks MD [facility] OBSTETRICS [place] [address] [facility] Endocrinology [address] [place] [phone] Referral ID Status Reason Start Date Expiration Date Visits Requested Visits Authorized [id number] Authorized Consult, Test & Treat 01/03/2024 01/02/2025 1 1 Encounter Details Date Type Department Care Team (Late st Contact Info) Description 01/03/2024 Orders Only Obstetrics [place] [address] Maite Marks MD [facility] OBSTETRICS [place] [address] Hypothyroidism, postsurgical Social History Tobacco Use Types [...] your doctor or pharmacy? Never 10/12/2023 [facility] Utilities Answer Date Recorded [...] time in the past 12 m [facility], were you homeless or living [...] 01/24/2024 1:00 PM EDT Appointment Radiology at [address] Simin Bay MD [facility] DR OBSTETRICS [place] [address] 01/24/2024 2:00 PM EDT Routine Obstetrics and Gynecology at [address] Taty Ramos MD [facility] MATERNAL & [place] [address] 02/07/2024 9:00 AM [place] [address] Simin Bay MD [facility] OBSTETRICS [place] [address] 02/07/2024 10:15 AM EDT Routine Obstetrics and Gynecology at [place] [phone] Linda Diaz MD [facility] MATERNAL [place] [address] 03/12/2024 10:45 AM EST Office Visit Endocrinology at [place] [phone] James Barth DO [facility] [place] [address] 05/23/2024 Hospital [place] [phone] Maite Malloy MD [facility] DR OBSTETRICS [place] [address] Scheduled Referrals Name Type Priority Associated Diagnoses Orde r Schedule Referral to Endocrinology Outpatient Referral Routine Hypothyroidism, postsurgical Ordered: 01/03/2024 documented as of this encounter Visit Diagnoses Diagnosis Hypothyroidism, postsurgical Postsurgical hypothyroidism documented in this encounter Care Teams Box Printer Relationship Specialty Start Date End Date Richard Rasheed MD [address] [place] [address] PCP - General Family Medicine 07/05/23 documented as of this encounter
--- OUTSIDE RECORDS SUMMARY | 2024-01-23 17:53 | XMS_ITS | Encounter Summary ---
Author Organization [facility] Address [facility] [place] [address] Care Team Providers Care Bearing Inspector Name Role Phone Richard Rasheed MD Primary Care Provider [phone] Reason for Visit * Reason Comments Routine Visit Ultrasound Finding 9 week u/s Encounter Details Date Type Department Care Team (Late st Contact Info) Description 11/08/2023 3:00 PM EDT Routine Obstetrics [place] [address] Ab, Lexii Khan, [facility] OBSTETR[place] [address] GA: [id number] Social History Tobacco Use Types Packs/Day Years [...] from your doctor or pharmacy? Never 10/12/2023 [facility] Utilities Answer Date Recorded In the past [...] any time in the past 12 m [facility], were you homeless or living in a [facility] (including now)? Yes 10/12/2023 Estimated Date of Delivery Comme nts Yes 06/12/2024 Based on Ultraso und Sex and Gender Information Value Date Recorded Sex Assigned at Female 10/12/2023 9:44 AM EDT Gender Identity Female 10/12/2023 9:44 AM EDT Sexual Orientation Straight 10/12/2023 9: 44 AM EDT documented as of this encounter Last Filed Vital Signs Vital Sign Reading Time Taken Comments Blood Pressure 106/62 11/08/2023 2:47 PM EDT Pulse - - Temperature - - Respiratory Rate - - Oxygen Saturation - - Inhaled Oxygen Concentration - - Weight 88.4 kg (194 lb 14.4 oz) 11/08/2023 2:47 PM EDT Height - - Body Mass Index 29.63 04/26/2021 11:20 AM EST documented in this encounter Progress Notes * Lexii Berger CNM - 11/08/2023 3:00 PM EDT Preethi presented today following an US to confirm viability and location. Preethi presented today with her partner. They both inquired today about paternity testing and how soon this can be done. Preethi was extremely lethargic today. Has been using THC daily to help w/ nausea. We discussedthat THC use is not recommended in and that there are other options for managing nausea. Preethi declines. Ultrasound today showed the following: US OB Viability Transabdominal Narrative: OBSTETRICS REPORT (Signed Final 11/08/2023 02:09 pm) PATIENT INFO: ID #: [id number] : [birth year] (33 yrs)(F) Name: PREETHI Godoy Visit Date: 11/08/2023 01:46 pm MARIO MARIE PERFORMED BY: Attending: Latoya Marquis MD Resident: Abdi LIMA, [facility] Performed By: Darwin Fleming RDMS Referred By: PAUL MENDEZ Location: [place] SERVICE(S) PROVIDED: UOBVIB - Viability <14 weeks - Transabdominal - [id number] INDICATIONS: 9 weeks gestation of Z3A.09 at [...] visualization Cul De Sac No fluid seen Impression: 1st Trimester Summary Single living intrauterine with [...] who have questions, please contact the health skin care instructor that requested your imaging first. Latoya Marquis, GME Hand Former Helper Electronically Signed Final Report 11/08/2023 02:09 pm ZAYDA changed in chart. Plan for f/u with MFM due to total thyroidectomy and poor obstetric history (loss at 20 weeks, 33 week delivery) documented in this encounter Plan of Treatment Upcoming Encounters Date Type Department Care Team (Late st Contact Info) Description 01/24/2024 1:00 PM EDT Appointment Radiology at [place] [phone] Simin Bay MD [facility] DR OBSTETRICS [place] [address] 01/24/2024 2:00 PM EDT Routine Obstetrics [place] [address] Ttay Ramos MD [facility] MATERNAL [place] [address] 02/07/2024 9:00 AM EDT Appointment Radiology at [place] [phone] Simin Bay MD [facility] OBSTETR[place] [address] 02/07/2024 10:15 AM EDT Routine Obstetrics and Gynecology at [place] [phone] Linda Diaz MD [facility] [place] [address] 03/12/2024 10:45 AM EST Office [place] [phone] James Barth DO [facility] [place] [address] 05/23/2024 Hospital Encounter Birthing [facility] [place] [phone] Maite Malloy MD [facility] OBSTETR[place] [address] documented as of this encounter Procedures Procedure Name Priority Date/Time Associated Diagnosis Comments TYPE AND SCREEN VALIDITY Routine 11/08/2023 3:33 PM EDT TSH CASCADE Routine 11/08/2023 3:33 PM EDT care in first trimester ABORH RECHECK STATUS Routine 11/08/2023 3:33 PM EDT HEMOGRAM Routine 11/08/2023 3:33 PM EDT care in first trimester HC ABO-MICROTITER Routine 11/08/2023 3:3 3 PM EDT care in first trimester DIFFERENTIAL, AUTOMATED Routine 11/08/2023 3:33 PM EDT care in first trimester HEPATITIS C ANTIBODY Routine 11/08/2023 3:33 PM EDT care in first trimester SYPHILIS ANTIBODY SCREEN WITH REFLEX Routine 11/08/2023 3:33 PM EDT care in first trimester RUBELLA ANTIBODY, IGG Routine 11/08/2023 3:33 PM EDT care in first trimester HIV SCREEN, 4TH GENERATION ([facility]/CGP/APD/NLH) Routine 11/08/2023 3:33 PM EDT care in first trimester HEPATITIS B SURFACE ANTIGEN Routine 11/08/2023 3:33 PM EDT care in first trimester TYPE AND SCREEN ([facility]/CGP/CARIE) Routine 11/08/2023 3:33 PM EDT care in first trimester T4, FREE Routine 11/08/2023 3:33 PM EDT documented in this encounter Results * (ABNORMAL) T4, free (11/08/2023 3:33 PM EDT) [facility] Free T4 0.85(L) 0.93 - 1.70 ng/dL [facility] Comment: Reference Interval (ng/dL): Females: ??First Trimester: 0.97-1.68 ??Second Trimester: 0.77-1.51 ??Third Trimester: 0.77-1.49 Blood 11/08/2023 3:33 PM EDT 11/08/2023 4:00 PM EDT Narrative Resulting Agency Comment Spec In Lab Lexii Khan Ab [facility] CHEMISTRY ORDERABLES [facility] [place] [address] * Type and Screen Validity (11/08/2023 3:33 PM EDT) [facility] T&S only valid at [facility]ORY Comment:This Type and Screen result is only valid at the [facility] Hospital Blood 11/08/2023 3:33 PM EDT 11/08/2023 3:47 PM EDT Narrative Resulting Agency Comment Spec In Lab Lexii Berger [facility] LAB ORDER AMANDA [facility] [place] [address] * ABORH Recheck Status (11/08/2023 3:33 PM EDT) Pathologist [facility] ABOR Type Recheck Completed [facility] Blood 11/08/2023 3:33 PM EDT 11/08/2023 3:47 PM EDT Narrative Resulting Agency Comment Spec In Lab Lexii Berger [facility] LAB ORDER AMANDA Performing Organization Address City/[facility]/ZIP Co de Phone Number [facility] [place] [address] * Type and screen ([facility]/CGP/CARIE) (11/08/2023 3:33 PM EDT) [facility] ABOR Type A POSITIVE [facility] Patient BB History Found [facility] Expires at [id number] on: 11-08-2023 [facility] Ab Screen Interp Negative [facility] Blood 11/08/2023 3:33 PM EDT 11/08/2023 3:33 PM EDT Narrative [facility] - 11/08/2023 3:33 PM EDT This Type and Screen result is only valid at the [facility] Hospital Resulting Agency Comment Spec In Lab Lexii Berger [facility] LAB ORDER AMANDA Performing Organization Address City/[facility]/ZIP Co de Phone Number [facility] [place] [address] * HIV Screen, 4th Generation ([facility]/CGP/APD/NLH) (11/08/2023 3:33 PM EDT) [facility] HIV Ab/Ag Screen Negative Negative [facility] Comment: This 4th Generation HIV test [...] HIV Comment Low Risk of HIV Infection [facility] Blood 11/08/2023 3:33 PM EDT 11/08/2023 3:50 PM EDT Narrative Resulting Agency Comment Spec In Lab Lexii Berger CN CHEMISTRY ORDERABLES Performing Organization Address City/[facility]/ZIP Co de Phone Number [facility] [place] [address] * Syphilis Screening Antibody with reflex RPR (11/08/2023 3:33 PM EDT) Syphilis IgG/IgM Negative Negative [facility] Blood 11/08/2023 3:33 PM EDT 11/08/2023 3:50 PM EDT Narrative Resulting Agency Comment Spec In Lab Lexii Berger CN CHEMISTRY ORDERABLES Performing Organization Address [facility] Co de Phone Number [facility] [place] [address] * (ABNORMAL) Differential, Automated (11/08/2023 3:33 PM EDT) Pathologist [facility] Neutrophil % 70.6 % [facility] Neutrophil Absolute 6.25(H) 1.70 - 6.10 x10(3)/mc L [facility] Lymph % 19.6 % [facility] Lymphocytes Abs 1.7 0.9 - 3.2 x10(3)/mc L [facility] Monocyte % 8.2 % [facility] Monocyte Abs 0.7 0.3 - 0.9 x10(3)/mc L [facility] Eos % 0.8 % [facility] Eosinophils Abs 0.1 0.0 - 0.4 x10(3)/mc L [facility] Basophil % 0.5 % [facility] Baso Absolute 0.0 0.0 - 0.1 x10(3)/mc L [facility] Immature Gran % 0.30 % [facility] Comment: Immature granulocytes(IG's)percentage and absolute count will include metamyelocytes, myelocytes, and promyelocytes. Blood smears from CBCs yielding IG's will be scanned manually for concordance. If this scan disagrees with the automated IG or if promyelocytes are noted, a manual differential will be performed. Immature Gran Absolute 0.03 0.00 - 0.04 x10(3)/ L [facility] Blood 11/08/2023 3:33 PM EDT 11/08/2023 3:50 PM EDT Narrative Resulting Agency Comment Spec In Lab Lexii Berger CNM HEMATOLOGY ORDERABLE S [facility] [place] [address] * (ABNORMAL) Hemogram (11/08/2023 3:33 PM EDT) White Blood Cell 8.9 4.0 - 9.5 x10(3)/mc L [facility] Red Blood Cell 3.39(L) 4.00 - 5.21 x10(6)/mc L [facility] Hemoglobin 11.4(L) 11.7 - 15.5 g/dL [facility] Hematocrit 33.7(L) 35.7 - 45.8 % [facility] Mean Cell Volume 99.4(H) 82.6 - 94.4 fL [facility] Mean Cell Hemoglobin 33.6(H) 27.1 - 32.0 pg [facility] Mean Cell Hemoglobin Concentration 33.8 31.7 - 35.0 g/dL [facility] Platelet 204 145 - 357 x10(3)/mc L [facility] RDW Standard Deviation 50.7(H) 37.0 - 46.0 fL [facility] RDW coefficient of variation 13.9 11.5 - 14.1 % [facility] Mean Platelet Volume 10.8 7.6 - 12.9 fL [facility] NRBC% auto 0.0 % [facility] NRBC Absolute 0.000 0.000 - 0.000 x10(3)/mc L [facility] Blood 11/08/2023 3:33 PM EDT 11/08/2023 3:50 PM EDT Narrative Resulting Agency Comment Spec In Lab Lexii Berger CNM HEMATOLOGY ORDERABLE S [facility] [place] [address] * Rubella Antibody, IgG (11/08/2023 3:33 PM EDT) Rubella Antibody IgG Positive Positive [facility] Comment: Please note: ??A positive result for this assay indicates that antibody levels are >or= 10.0 IU/mL and is considered to be an indicator of positive immune status. Blood 11/08/2023 3:33 PM EDT 11/08/2023 3:50 PM EDT Narrative Resulting Agency Comment Spec In Lab Lexii Berger CNM CHEMISTRY ORDERABLES Performing Organization Address [facility] Co de Phone Number [facility] [place] [address] * Hepatitis B Surface Antigen (11/08/2023 3:33 PM EDT) Hepatitis B Surface Antigen Negative Negative [facility] Blood 11/08/2023 3:33 PM EDT 11/08/2023 3:50 PM EDT Narrative Resulting Agency Comment Spec In Lab Lexii Berger CNM CHEMISTRY ORDERABLES Performing Organization Address City/[facility]/ZIP Co de Phone Number [facility] [place] [address] * Hepatitis C Antibody (11/08/2023 3:33 PM EDT) Hepatitis C Antibody Negative Negative [facility] Blood 11/08/2023 3:33 PM EDT 11/08/2023 3:50 PM EDT Narrative Resulting Agency Comment Spec In Lab Lexii Berger CNM CHEMISTRY ORDERABLES Performing Organization Address [facility] Co de Phone Number [facility] [place] [address] * (ABNORMAL) TSH [place] (11/08/2023 3:33 PM EDT) Thyroid Stimulating Hormone 30.70(H) 0.27 - 4.20 mcIU/mL [facility] Comment: Reference Interval (mcIU/mL): Females: ??First Trimester: 0.23-3.88 ??Second Trimester: 0.22-3.90 ??Third Trimester: 0.44-4.66 Blood 11/08/2023 3:33 PM EDT 11/08/2023 3:50 PM EDT Narrative Resulting Agency Comment Spec In Lab Lexii Berger CNM CHEMISTRY ORDERABLES Performing Organization Address [facility] Co de Phone Number [facility] [place] [address] documented in this encounter Visit Diagnoses Diagnosis care in first trimester documented in this encounter Care Teams Bearing Inspector Relationship Specialty Start Date End Date Richard Rasheed MD [address] [place] [address] PCP - General Family Medicine 07/05/23 documented as of this encounter
--- OUTSIDE RECORDS SUMMARY | 2024-01-23 17:53 | XMS_ITS | Encounter Summary ---
Author Organization [facility] Address [facility] [place] [address] Care Team Providers Care Animal Herder Name Role Phone Richard Rasheed MD Primary Care Provider [phone] Encounter Details Date Type Department Care Team (Late st Contact Info) Description 11/20/2023 Telephone Obstetrics [place] [address] Jody Wood RN Social History Tobacco Use [...] from your doctor or pharmacy? Never 10/12/2023 [facility] Utilities Answer Date Recorded In the past 12 months has [facility], [employer], oil, or water [employer] threatened to shut off services in your [...] any time in the past 12 m [facility], were you homeless or living [...] Telephone Encounter - Jody Wood RN - 11/20/2023 3:56 PM EDT Andree Hummel [place] 10w, 5d MFM patient Reason for call: Vaginal bleeding Andree calls today with concerns of vaginal bleeding. She reports that she just went to the bathroom and noticed a dark red streak of blood on the toilet paper. She reports that she wiped 2-3x beforethis went away. Denies any blood in toilet or in underwear. Reports dull abdominal cramping but this has been ongoing. Reports recent intercourse that happened yesterday. Recommended that she wear a pad to continue to monitor this. Advised that she call back with any further bleeding. Informed her I would forward this to the [facility] on-call for further recommendations. documented in this encounter Plan of Treatment Upcoming Encounters Date Type Department Care Team (Late st Contact Info) Description 01/24/2024 1:00 PM EDT Appointment Radiology at [place] [phone] Walt Bay MD [facility] DR OBSTETRICS [place] [address] 01/24/2024 2:00 PM EDT Routine Obstetrics and Gynecology at [address] Taty Ramos MD [facility] DR MATERNAL & [place] [address] 02/07/2024 9:00 AM EDT Appointment Radiology at [place] [phone] Walt Bay MD [facility] DR OBSTET[place] [address] 02/07/2024 10:15 AM EDT Routine Obstetrics and Gynecology at [place] [phone] Linda Diaz MD [facility] [place] [address] 03/12/2024 10:45 AM EST Office Visit Endocrinology at [address] James Barth DO [facility] [place] [address] 05/23/2024 Hospital Encounter Birthing [facility] [place] [phone] Maite Malloy MD [facility] [place] [address] documented as of this encounter Visit Diagnoses Not on filedocumented in this encounter Care Teams Animal Herder Relationship Specialty Start Date End Date Richard Rasheed MD [address] [place] [address] PCP - General Family Medicine 07/05/23 documented as of this encounter
--- OUTSIDE RECORDS SUMMARY | 2024-01-23 17:53 | XMS_ITS | Encounter Summary ---
Author Organization [facility] Address [facility] [place] [address] Care Team Providers Care Software Systems Architect Name Role Phone Richard Rasheed MD Primary Care Provider [phone] Reason for Visit * Reason Comments Family History sister with possible LCHAD deficiency * Consultation (Routine) - Closed Specialty Diagnoses / Procedures Referred By Contac t Referred To Contact Obstetrics and Gynecology Diagnoses History of delivery, currently Hypothyroidism, postsurgical GC (11/21-12/05) Walt Bay MD [facility] OBST[place] [address] [facility] [employer] [place] [address] Referral ID Status Reason Start Date Expiration Date V isits Requested Visits Authorized [id number] Closed Consult, Test & Treat 11/15/2023 11/14/2024 1 1 Encounter Details Date Type Department Care Team (Latest Contact Info) Description 11/23/2023 1:00 PM EDT TH Visit (TeleHealth) Obstetrics [place] [address] Félix Richardson, [facility] OBSTETRICS [place] [address] Encounter for procreative genetic counseling; Family history of genetic disease carrier; Encounter of female for testing for genetic disease carrier status for procreative management; care in first trimester Social History Tobacco Use Types [...] your doctor or pharmacy? Never 10/12/2023 [facility] Utilities Answer Date Recorded In the past 12 months has th e [employer], oil, or water [employer] threatened to shut off services in your [...] any time in the past 12 m [facility], were you homeless or living in a detention (including now)? Yes 10/12/2023 Estimated Date of Delivery Comme nts Yes 06/12/2024 Based on Ultraso und Sex and Gender Information Value Date Recorded Sex Assigned at Female 10/12/2023 9:44 AM EDT Gender Identity Female 10/12/2023 9:44 AM EDT Sexual Orientation Straight 10/12/2023 9: 44 AM EDT documented as of this encounter Progress Notes * Félix Richardson, [facility] - 11/23/2023 1:00 PM EDT Reproductive Genetics Andree Hummel is a 33 y.o. female currently at 11w1d gestation. I met with Andree for a 50-minute genetic counseling telephone visit (converted from video due to technical difficulties). She was located in [place] at the time of the visit. She was unaccompanied. Referring Provider: Walt Bay MD [facility] DR OBSTETRICS AND GYNECOLOGY [place], [place] [address] Chief Concern Patient presents with Family History sister with possible LCHAD deficiency Previous Genetic Counseling Visit(s): 05/22/2012 for family history of possible LCHAD deficiency Family History Andree reports that her sister, Ana, (age 24) was diagnosed with LCHAD deficiency in childhood. Based on information available to us at Andree's last visit in 2012, Ana's diagnosis was uncertain: Andree's mother provided written authorization to review the [facility] medical records of Andree's sister, Ana uHmmel ( 03/27/1999). 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 She then had numerous follow-up studies, but most ofthe results are not available in the electronic medical record. 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 She had no metabolic follow-up until 07/12/2010 when she saw Joshua Peters MD. Dr. Peters noted that Ana's diagnosis was unclear. He planned to review Ana's lab results in her paper chart and recommended genetic testing if it had not been done. Today, Andree's mother shared that she has not received any additional information from Dr. Peters since that time. They had decided not to pursue genetic testing because of the potential costs. Steve does not have any new information about Ana's suspected diagnosis of LCHAD deficiency. Her other health problems include pericarditis, rheumatoid arthritis, and thyroid disease. Andree and Ana are full siblings. They also have two full brothers. Andree and her boyfriend are nonconsanguineous. Paternity is 100% certain. OB History # Outcome Date GA Lbr Harshal/2nd Weight Sex Type Anes PTL Lv 4 Current 3 2012 31w5d M OTONIEL Comments: PTL 2 2010 20w0d Comments: No care; delivered fetus at home; states she disposed of remains herself; no medical care 1 2006 7w0d Genetic Screening Results Test Result Panorama screen (11/15/2023) Low risk for common aneuploidies and triploidy Assessment 1. Family history of possible LCHAD deficiency: LCHAD deficiency is a fatty acid oxidation disordercharacterized by early-onset cardiomyopathy, hypoglycemia, neuropathy, and pigmentary retinopathy, and sudden . LCHAD deficiency in a fetus may be associated with severe maternal illness during . These maternal illnesses include acute fatty liver of ; HELLP (hypertension or hemolysis, elevated liver enzymes, and low platelets) syndrome; and hyperemesis gravidum. LCHAD deficiency is inherited in an autosomal recessive manner. If Andree's sister is a heterozygous carrier of LCHAD deficiency, then Andree's chance of being a carrier would be 1 in 2 (50%). If hersister has LCHAD deficiency, then Andree's chance of being a carrier would be 2 in 3 (67%). The general population frequency in the [place] is ~1/250. Therefore, Andree's chance of having an affected child may be in the range of 04/1499 to 04/1999. Fully informative carrier testing is only possible if Andree's sister has a definitive diagnosis confirmed by molecular genetic testing. Since this information is not available, we can offer Andree carrier screening for LCHAD deficiency and the clinically indistinguishable condition, trifunctional protein (TFP) deficiency, via next-generation sequencing of the HADHA and HADHB genes. This testing has a carrier detection rate of 99%. It is available as a standalone test or as part of an expanded carrier screen (see below). 2. Reproductive carrier screening: Per ACOG recommendations, all individuals should be offered carrier screening for cystic fibrosis, spinal muscular atrophy, and hemoglobinopathies; additional recommendations are based on ancestry. However, most professional societies now advise an ethnicand population neutral approach to carrier screening. As of 2020, ACMG recommends that all individuals should be offered Tier 3 carrier screening, which includes 112 conditions with a liofhmhj-gr-nyhqlh phenotype and a carrier frequency of >=1/200; this panel does not include LCHAD or TFP deficiency. Carrier screening for additional serious but less common conditions (Tier 4) is available to patients who want maximum information; the gene list varies by laboratory. We are currently offering [employer]'s Horizon 113 (Tier 3) and Horizon 609 (Tier 4) carrier screen. We discussed the limitations and risks of carrier screening. A negative result greatly reduces, butdoes not completely eliminate, the risk of being a carrier. Results are reported as positive if a pathogenic or likely pathogenic variant is identified. There is the potential for incidental findings; for example, there are certain conditions on the panel where there could be medical implications fo r carriers. During an ongoing , it is ideal to perform carrier screening on both partners simultaneously so that results can be obtained in a timely manner. Andree opted for the Horizon 609 Carrier Screen. This panel includes the HADHA and HADHB genes associated with LCHAD and TFP deficiency. Orders Placed This Encounter Procedures [employer] CUSTOM Plan Horizon Custom Carrier Screen (609 conditions) Written consent obtained through [employer] and imported to chart. Epic order placed. [employer] to manage sample collection (saliva collection kit to be mailed to patient). Turnaround time for results is 2-3 weeks. Results will be communicated via [facility]. Partner Testing: Deferred documented in this encounter Plan of Treatment Upcoming Encounters Date Type Department Care Team (Late st Contact Info) Description 01/24/2024 1:00 PM EDT Appointment Radiology at [place] [phone] Walt Bay MD [facility] DR OBSTETRICS [place] [address] 01/24/2024 2:00 PM EDT Routine Obstetrics and Gynecology at [address] Taty Ramos MD [facility] MATERNAL [place] [address] 02/07/2024 9:00 AM EDT [place] [address] Walt Bay MD [facility] DR OBSTETRICS [place] [address] 02/07/2024 10:15 AM EDT Routine Obstetrics and Gynecology at [place] [phone] Linda Diaz MD [facility] [place] [address] 03/12/2024 10:45 AM EST Office Visit [place] [address] James Barth DO [facility] [place] [address] 05/23/2024 [place] [address] Maite Malloy MD [facility] OBSTET[place]ICS [place] [address] Scheduled Orders Name Type Priority Associated Diagnoses Orde r Schedule [facility] Lab Routine Family history of genetic disease carrier Encounter of female for testing for genetic disease carrier status for procreative management care in first trimester Ordered: 11/30/2023 documented as of this encounter Visit Diagnoses Diagnosis Encounter for procreative genetic counseling Family history of genetic disease carrier Encounter of female for testing for genetic disease carrier status for procreative management Testing of female for genetic disease carrier status care in first trimester documented in this encounter Care Teams Software Systems Architect Relationship Specialty Start Date End Date Richard Rasheed MD [address] [place] [address] PCP - General Family Medicine 07/05/23 documented as of this encounter
--- OUTSIDE RECORDS SUMMARY | 2024-01-23 17:53 | XMS_ITS | Encounter Summary ---
Author Organization [facility] Address [facility] [place] [address] Care Team Providers Care Professional Security Officer Name Role Phone Richard Rasheed MD Primary Care Provider [phone] Encounter Details Date Type Department Care Team (Latest Contact Info) Description 11/08/2023 Travel Social History Tobacco Use Types Packs/Day [...] from your doctor or pharmacy? Never 10/12/2023 [facility] Utilities Answer Date Recorded In the past 12 months has e [email or web address], gas, oil, or water [employer] threatened to shut off services in your [...] were you homeless or living in a usp (including now)? Yes 10/12/2023 Estimated Date of [...] 01/24/2024 1:00 PM [place] [address] Walt Bay MD [facility] OBSTETRICS AND GYNECOLOGY [place], [place] [id number] 01/24/2024 2:00 PM EDT Routine Obstetrics [place] [address] Taty Ramos MD [facility] MATERNAL & [place] [address] 02/07/2024 9:00 AM EDT Appointment Radiology at [address] Walt Bay MD [facility] DR OBSTETRICS [place] [address] 02/07/2024 10:15 AM EDT Routine Obstetrics and Gynecology at [address] Linda Diaz MD [facility] [place] [address] 03/12/2024 10:45 AM EST Office Visit Endocrinology at [address] James Barth DO [facility] [place] [address] 05/23/2024 [place] [address] Maite Malloy MD [facility] DR OBSTETRICS [place] [address] documented as of this encounter Visit Diagnoses Not on filedocumented in this encounter Care Teams Professional Security Officer Relationship Specialty Start Date End Date Richard Rasheed MD [address] [place] [address] PCP - General Family Medicine 07/05/23 documented as of this encounter
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
--- OUTSIDE RECORDS SUMMARY | 2024-01-23 17:53 | XMS_ITS | Encounter Summary ---
Author Organization [facility] Address [facility] [place] [address] Care Team Providers Care Cloth Washer Name Role Phone Richard Rasheed MD Primary Care Provider [phone] Encounter Details Date Type Department Care Team (Latest Contact Info) Description 11/15/2023 Travel Social History Tobacco Use Types Packs/Day [...] from your doctor or pharmacy? Never 10/12/2023 [facility] Utilities Answer Date Recorded In the past 12 months has e [employer], gas, oil, or water [facility] threatened to shut off services in your [...] 01/24/2024 1:00 PM EDT [place] [address] Walt Bay MD [facility] OBSTETRICS AND GYNECOLOGY [place], [place] [address] 01/24/2024 2:00 PM EDT Routine Obstetrics [place] [address] Taty Ramos MD [facility] MATERNAL & [place] [address] 02/07/2024 9:00 AM EDT Appointment Radiology at [address] Walt Bay MD [facility] DR OBSTETRICS [place] [address] 02/07/2024 10:15 AM EDT Routine Obstetrics and Gynecology at [address] Linda Diaz MD [facility] MATERNAL [place] [address] 03/12/2024 10:45 AM EST Office Visit Endocrinology at [address] James Barth DO [facility] [place] [address] 05/23/2024 [place] [address] Maite Malloy MD [facility] DR OBSTETRICS [place] [address] documented as of this encounter Visit Diagnoses Not on filedocumented in this encounter Care Teams Cloth Washer Relationship Specialty Start Date End Date Richard Rasheed MD [address] [place] [address] PCP - General Family Medicine 07/05/23 documented as of this encounter
--- OUTSIDE RECORDS SUMMARY | 2024-01-23 17:54 | XMS_ITS | Encounter Summary ---
Author Organization [facility] Address [facility] [place] [address] Care Team Providers Care Transportation Supervisor Name Role Phone Valencia Adhikari APRN Primary Care Provider [phone] Encounter Details Date Type Department Care Team (Latest Contact Info) Description 07/28/2021 11:00 AM EDT TH Visit (TeleHealth) Psychiatry [place] [phone] Lisa Dickens, PhD [facility] [place] [address] Unspecified mood (affective) disorder; Borderline personality disorder [...] EDT INDIVIDUAL THERAPY PROGRESS NOTE CPT CODE 88812 LOCATION: Telehealth visit. Andree SinghTamara gave permission for and was seen for today's appointment with a Telehealth visit. During this visit she was located in her apartment in [place], [place]. Andree Hummel is aware that for any urgent matter she can can contact her regional mental health crisis services. For patients located in [place]: www.[employer] or text/call . Forpatients located in [place]: [email or web address]. To reach their [facility] mental health clinician or the outpatient Department of Psychiatry clinics,patient can call [phone]. SESSION DURATION: 40 minutes ATTENDEES: Patient PRIMARY COMPLAINT/DIAGNOSIS: Borderline Personality Disorder; Unspecified Mood Disorder TREATMENT MODALITY: DBT PATIENT REPORT OF CURRENT FUNCTIONING/CHANGES: Patient reported: -was late due to internet connectivity problems -appointment at [facility] next week -saw psychiatrist yesterday, upping Effexor, [...] 01/24/2024 1:00 PM EDT Appointment [place] [address] Simin Bay MD [facility] DR OBSTET[place]ICS [place] [address] 01/24/2024 2:00 PM EDT Routine Obstetrics [place] [address] Taty Ramos MD [facility] MATERNAL & [place] [address] 02/07/2024 9:00 AM EDT Appointment [place] [address] Simin Bay MD [facility] DR OBSTETRICS [place] [address] 02/07/2024 10:15 AM EDT Routine Obstetrics and Gynecology at [place] [phone] Linda Diaz MD [facility] MATERNAL [place] [address] 03/12/2024 10:45 AM EST Office [place] [address] James Barth DO [facility] [place] [address] 05/23/2024 Hospital Encounter Birthing [place] [phone] Maite Malloy MD [facility] DR OBSTETRICS [place] [address] documented as of this encounter Visit Diagnoses Diagnosis Unspecified mood (affective) disorder Borderline personality disorder documented in this encounter Care Teams Transportation Supervisor Relationship Specialty Start Date End Date Valencia Adhikari APRN [address] [place] [address] PCP - General 04/21/14 07/04/23 documented as of this encounter
--- OUTSIDE RECORDS SUMMARY | 2024-01-23 17:54 | XMS_ITS | Encounter Summary ---
Author Organization [facility] [place] [address] Care Team Providers Care Nursing Secretary Name Role Phone Valencia Adhikari APRN Primary Care Provider [phone] Encounter Details Date Type Department Care Team (Late st Contact Info) Description 04/13/2023 Telephone Obstetrics [place] [address] Jody Wood RN Social History [...] RN - 04/13/2023 1:28 PM EST Andree HidalgoRoxann [place] 4w, 5d based on LMP of [...] Trimester Bleeding Per Protocol criteria ( Protocol #[id number]) meets criteria: Patient is less than 7 [...] requesting to have these labs drawn at [facility]. Will ssend these electronically. * Telephone Encounter - Jody Wood RN - 04/13/2023 1:28 PM EST ----- Message from Corine Alexander sent at 04/13/2023 1:00 PM EST ----- Regarding: spotting Caller's name: Andree Mcdonald Call back #: [phone] Patient's provider/team: EVANGELISTA 05/09 Reason for call: Slight spotting? documented in this encounter Plan of Treatment Upcoming Encounters Date Type Department Care Team (Late st Contact Info) Description 01/24/2024 1:00 PM EDT [place] [address] Walt Bay MD [facility] DR OBSTETRICS [place] [address] 01/24/2024 2:00 PM EDT Routine Obstetrics [place] [address] Taty Ramos MD [facility] MATERNAL & [place] [address] 02/07/2024 9:00 AM EDT Appointment Radiology at [address]1000 Walt Bay MD [facility] DR OBSTETRICS [place] [address] 02/07/2024 10:15 AM EDT Routine Obstetrics and Gynecology at [address] Linda Diaz MD [facility] MATERNAL [place] [address] 03/12/2024 10:45 AM EST Office [place] [address] James Barth DO [facility] [place] [address] 05/23/2024 [place] [address] Maite Malloy MD [facility] DR OBSTETRICS [place] [address] documented as of this encounter Visit Diagnoses Not on filedocumented in this encounter Care Teams Nursing Secretary Relationship Specialty Start Date End Date Valencia Adhikari APRN [address] [place] [address] PCP - General 04/21/14 07/04/23 documented as of this encounter
--- OUTSIDE RECORDS SUMMARY | 2024-01-23 17:54 | XMS_ITS | Encounter Summary ---
[place] [address] Care Team Providers Care Clothing And Textiles Teacher Name Role Phone Onofre Valencia Barton APRN Primary Care Provider +1 -[phone] Encounter Details Date Type Department Care Team (Late st Contact Info) Description 07/14/2021 Telephone [place] [address] Snehal Madsen CCMA Social History [...] 01/24/2024 1:00 PM EDT [place] [address] Walt Bay MD [facility] OBSTETRICS [place] [address] 01/24/2024 2:00 PM EDT Routine Obstetrics and Gynecology at [place] [address] Taty Ramos MD [facility] MATERNAL & [place] [address] 02/07/2024 9:00 AM EDT Appointment Radiology at [place] [address] Walt Bay MD [facility] OBSTETRICS [place] [address] 02/07/2024 10:15 AM EDT Routine Obstetrics and Gynecology at [place] [address] Linda Diaz MD [facility] [place] [address] 03/12/2024 10:45 AM EST Office Visit Endocrinology at [place] [address] James Barth DO [facility] [place] [address] 05/23/2024 [place] [address] Maite Malloy MD [facility] OBSTETRICS [place] [address] documented as of this encounter Visit Diagnoses Not on filedocumented in this encounter Care Teams Clothing And Textiles Teacher Relationship Specialty Start Date End Date Valencia Adhikari APRN [address] [place] [address] PCP - General 04/21/14 07/04/23 documented as of this encounter
--- OUTSIDE RECORDS SUMMARY | 2024-01-23 17:54 | XMS_ITS | Encounter Summary ---
Author Organization [facility] [place] [address] Care Team Providers Care Shank Maker Name Role Phone Valencia Adhikari BER[place] Primary Care Provider +1 -[phone] Encounter Details Date Type Department Care Team (Late st Contact Info) Description 07/14/2021 Telephone [place] [address] Maria Teresa Wheeler Social History [...] 3:12 PM EDT Lab orders faxed to [facility] at the request of KANDIS Hector. documented in this encounter Plan of Treatment Upcoming Encounters Date Type Department Care Team (Late st Contact Info) Description 01/24/2024 1:00 PM EDT Appointment [place] [address] Walt Bay MD [facility] OBSTETRICS [place] [address] 01/24/2024 2:00 PM EDT Routine Obstetrics and Gynecology at [address] Taty Ramos MD [facility] DR MATERNAL & [place] [address] 02/07/2024 9:00 AM EDT Appointment Radiology at [place] [address] Walt Bay MD [facility] DR OBSTETRICS [place] [address] 02/07/2024 10:15 AM EDT Routine Obstetrics and Gynecology at [address] Linda Diaz MD [facility] MATERNAL [place] [address] 03/12/2024 10:45 AM EST Office Visit Endocrinology at [address] James Barth DO [facility] [place] [address] 05/23/2024 Hospital Encounter Birthing [place] [phone] Maite Malloy MD [facility] DR OBSTETRICS [place] [address] documented as of this encounter Visit Diagnoses Not on filedocumented in this encounter Care Teams Shank Maker Relationship Specialty Start Date End Date Valencia Adhikari APRN [address] [place] [address] PCP - General 04/21/14 07/04/23 documented as of this encounter
--- OUTSIDE RECORDS SUMMARY | 2024-01-23 17:54 | XMS_ITS | Encounter Summary ---
Author Organization [facility] Address [facility] [place] [address] Care Team Providers Care Bag Builder Name Role Phone Valencia Adhikari APRN Primary Care Provider +1 -[phone] Encounter Details Date Type Department Care Team (Latest Contact Info) Description 05/16/2021 3:00 PM EST TH Visit (TeleHealth) Psychiatry [place] [phone] Lisa Dickens, PhD [facility] [place] [address] Unspecified mood (affective) disorder; Borderline personality disorder [...] EST INDIVIDUAL THERAPY PROGRESS NOTE CPT CODE 16400 LOCATION: Telehealth visit. Andree Artislliams gave permission for and was seen for today's appointment with a Telehealth visit. During this visit she was located in her apartment in [place], [place]. Andree Hummel is aware that for any urgent matter she can can contact her regional mental health crisis services. For patients located in [place]: www.[employer] or text/call . Forpatients located in [place]: [email or web address]. To reach their [facility] mental health clinician or the outpatient Department of Psychiatry clinics,patient can call [phone]. SESSION DURATION: 40 minutes ATTENDEES: Patient PRIMARY [...] 01/24/2024 1:00 PM EDT Appoint[place] [address] Simin Bay MD [facility] OBSTETRICS [place] [address] 01/24/2024 2:00 PM EDT Routine Obstetrics [place] [address] Taty Ramos MD [facility] MATERNAL & [place] [address] 02/07/2024 9:00 AM EDT Appointment Radiology at [address] Simin Bay MD [facility] OBSTETRICS [place] [address] 02/07/2024 10:15 AM EDT Routine Obstetrics and Gynecology at [address] Linda Diaz MD [facility] [place] [address] 03/12/2024 10:45 AM EST Office Visit Endocrinology at [address] James Barth DO [facility] [place] [address] 05/23/2024 [place] [address] Maite Malloy MD [facility] OBSTETRICS [place] [address] documented as of this encounter Visit Diagnoses Diagnosis Unspecified mood (affective) disorder Borderline personality disorder documented in this encounter Care Teams Bag Builder Relationship Specialty Start Date End Date Valencia Adhikari APRN [address] [place] [address] PCP - General 04/21/14 07/04/23 documented as of this encounter
--- OUTSIDE RECORDS SUMMARY | 2024-01-23 17:54 | XMS_ITS | Encounter Summary ---
Author Organization [facility] [place] [address] Care Team Providers Care Tool Turret Lathe Set Up Operator Name Role Phone Valencia Adihkari APRN Primary Care Provider +1 -[phone] Encounter Details Date Type Department Care Team (Latest Contact Info) Description 08/01/2022 11:00 AM EDT TH Visit (TeleHealth) [place] [address] Shelli Kearns MD [facility] [place] [address] PATIENT NOT SEEN Social History Tobacco Use [...] 01/24/2024 1:00 PM EDT Appointment Radiology at [place] [address] Walt Bay MD [facility] OBSTETRICS [place] [address] 01/24/2024 2:00 PM EDT Routine Obstetrics and Gynecology at [place] [address] Taty Ramos MD [facility] MATERNAL & [place] [address] 02/07/2024 9:00 AM EDT Appointment Radiology at [place] [address] Walt Bay MD [facility] OBSTETRICS [place] [address] 02/07/2024 10:15 AM EDT Routine Obstetrics and Gynecology at [place] [address] Linda Diaz MD [facility] [address] [place]NAL [place] [address] 03/12/2024 10:45 AM EST Office Visit Endocrinology at [place] [address] James Barth DO [facility] [place] [address] 05/23/2024 [place] [address] Maite Malloy MD [facility] OBSTETRICS [place] [address] documented as of this encounter Visit Diagnoses Diagnosis DH PATIENT NOT SEEN documented in this encounter Care Teams Tool Turret Lathe Set Up Operator Relationship Specialty Start Date End Date Valencia Adhikari APRN [address] [place] [address] PCP - General 04/21/14 07/04/23 documented as of this encounter
--- OUTSIDE RECORDS SUMMARY | 2024-01-23 17:54 | XMS_ITS | Encounter Summary ---
Author Organization [facility] [place] [address] Care Team Providers Care Container Maker Name Role Phone OnofreMarilynValencia H BER[place] Primary Care Provider +1 -[phone] Encounter Details Date Type Department Care Team (Late st Contact Info) Description 10/10/2021 Telephone [place] [address] Peg Cast Social History Tobacco [...] Miscellaneous Notes * Telephone Encounter - Peg Csat - 10/10/2021 2:14 PM EDT Called pt to sched EGD/COLO w/1st avail provider; APD ok-had to lvm documented in this encounter Plan of Treatment Upcoming Encounters Date Type Department Care Team (Late st Contact Info) Description 01/24/2024 1:00 PM EDT Appointment [place] [address] Walt Bay MD [facility] OBSTETRICS [place] [address] 01/24/2024 2:00 PM EDT Routine Obstetrics and Gynecology at [address] Taty Ramos MD [facility] DR MATERNAL & [place] [address] 02/07/2024 9:00 AM EDT Appointment Radiology at [place] [address] Walt Bay MD [facility] OBSTETRICS [place] [address] 02/07/2024 10:15 AM EDT Routine Obstetrics and Gynecology at [address] Linda Diaz MD [facility] [place] [address] 03/12/2024 10:45 AM EST Office Visit Endocrinology at [place] [address] James Barth DO [facility] [place] [address] 05/23/2024 [place] [address] Maite Malloy MD [facility] DR OBSTETRICS [place] [address] documented as of this encounter Visit Diagnoses Not on filedocumented in this encounter Care Teams Container Maker Relationship Specialty Start Date End Date Valencia Adhikari APRN [address] [place] [address] PCP - General 04/21/14 07/04/23 documented as of this encounter
--- OUTSIDE RECORDS SUMMARY | 2024-01-23 17:54 | XMS_ITS | Encounter Summary ---
Author Organization [facility] Address [facility] [place] [address] Care Team Providers Care Director Of Business Services Name Role Phone Valencia Adhikari APRN Primary Care Provider +1 -[phone] Encounter Details Date Type Department Care Team (Latest Contact Info) Description 05/09/2021 3:00 PM EST TH Visit (TeleHealth) Psychiatry [place] [address] Lisa Dickens, PhD [facility] [place] [address] Unspecified mood (affective) disorder; Borderline personality disorder [...] EST INDIVIDUAL THERAPY PROGRESS NOTE CPT CODE 73215 LOCATION: Telehealth visit. Andree Artislliams gave permission for and was seen for today's appointment with a Telehealth visit. During this visit she was located in her apartment in [place], [place] is aware that for any urgent matter she can can contact her regional mental health crisis services. For patients located in [place]: www.[facility] or text/call . Forpatients located in [place]: [email or web address]. To reach their [facility] mental health clinician or the outpatient Department of Psychiatry clinics,patient can call [phone]. SESSION DURATION: 40 minutes ATTENDEES: Patient PRIMARY [...] 01/24/2024 1:00 PM EDT [place] [address] Simin Bay MD [facility] DR OBSTETRICS [place] [address] 01/24/2024 2:00 PM EDT Routine Obstetrics [place] [address] Taty Ramos MD [facility] MATERNAL & [place] [address] 02/07/2024 9:00 AM EDT Appointment Radiology at [place] [address] Simin Bay MD [facility] OBSTETRICS [place] [address] 02/07/2024 10:15 AM EDT Routine Obstetrics and Gynecology at [address]1000 Linda Diaz MD [facility] [place] [address] 03/12/2024 10:45 AM EST Office Visit Endocrinology at [address] James Barth DO [facility] [place] [address] 05/23/2024 Hospital [place] [address] Maite Malloy MD [facility] OBSTETRICS [place] [address] documented as of this encounter Visit Diagnoses Diagnosis Unspecified mood (affective) disorder Borderline personality disorder documented in this encounter Care Teams Director Of Business Services Relationship Specialty Start Date End Date Valencia Adhikari APRN [address] [place] [address] PCP - General 04/21/14 07/04/23 documented as of this encounter
--- OUTSIDE RECORDS SUMMARY | 2024-01-23 17:54 | XMS_ITS | Encounter Summary ---
Author Organization [facility] Address [facility] [place] [address] Care Team Providers Care Insole And Outsole Preparer Name Role Phone Valencia Adhikari APRN Primary Care Provider +1 -[phone] Encounter Details Date Type Department Care Team (Late st Contact Info) Description 05/23/2021 Telephone Psychiatry [place] [address] Lisa Dickens, PhD [facility] [place] [address] Social History Tobacco Use Types Packs/Day Years [...] 01/24/2024 1:00 PM EDT Appointment Radiology at [address]1000 Walt Bay MD [facility] DR OBSTETRICS [place] [address] 01/24/2024 2:00 PM EDT Routine Obstetrics and Gynecology at [address]1000 Taty Ramos MD [facility] MATERNAL & [place] [address] 02/07/2024 9:00 AM EDT Appointment Radiology at [address]1000 Walt Bay MD [facility] DR OBSTETRICS [place] [address] 02/07/2024 10:15 AM EDT Routine Obstetrics and Gynecology at [place] [phone] Linda Diaz MD [facility] [address] [place]NAL [place] [address] 03/12/2024 10:45 AM EST Office Visit Endocrinology at [address]1000 James Barth DO [facility] [place] [address] 05/23/2024 Hospital Encounter Birthing [place] [phone] Maite Malloy MD [facility] OBSTETRICS [place] [address] documented as of this encounter Visit Diagnoses Diagnosis Borderline personality disorder Unspecified mood (affective) disorder documented in this encounter Care Teams Insole And Outsole Preparer Relationship Specialty Start Date End Date Valencia Adhikari APRN [address] [place] [address] PCP - General 04/21/14 07/04/23 documented as of this encounter
--- OUTSIDE RECORDS SUMMARY | 2024-01-23 17:54 | XMS_ITS | Encounter Summary ---
Author Organization [facility] Address [facility] [place] [address] Care Team Providers Care Burr Bench Hand Name Role Phone Valencia Adhikari APRN Primary Care Provider +1 -[phone] Encounter Details Date Type Department Care Team (Latest Contact Info) Description 05/30/2021 3:00 PM EST TH Visit (TeleHealth) Psychiatry [place] [phone] Lisa Dickens, PhD [facility] DR [place] [address] Unspecified mood (affective) disorder; Borderline personality disorder [...] EST INDIVIDUAL THERAPY PROGRESS NOTE CPT CODE 20566 LOCATION: Telehealth visit. Andree Artislliams gave permission for and was seen for today's appointment with a Telehealth visit. During this visit she was located in her apartment in [place], [place]. Andree Hummel is aware that for any urgent matter she can can contact her regional mental health crisis services. For patients located in [place]: www.[employer] or text/call . Forpatients located in [place]: [email or web address]/[email or web address]-xhpt. To reach their [facility] mental health clinician or the outpatient Department of Psychiatry clinics,patient can call [phone]. SESSION DURATION: 40 minutes ATTENDEES: Patient PRIMARY [...] 01/24/2024 1:00 PM EDT Appointment Radiology at [place] [phone] Simin Bay MD [facility] OBSTETRICS [place] [address] 01/24/2024 2:00 PM EDT Routine Obstetrics [place] [address] Taty Ramos MD [facility] MATERNAL & [place] [address] 02/07/2024 9:00 AM EDT Appointment Radiology at [place] [phone] Simin Bay MD [facility] OBSTETRICS [place] [address] 02/07/2024 10:15 AM EDT Routine Obstetrics [place] [address] Linda Diaz MD [facility] [place] [address] 03/12/2024 10:45 AM EST Office Visit [place] [address] James Barth DO [facility] [place]IN[place] [address] 05/23/2024 Hospital Encounter Birthing [place] [phone] Maite Malloy MD [facility] DR OBSTETRICS [place] [address] documented as of this encounter Visit Diagnoses Diagnosis Unspecified mood (affective) disorder Borderline personality disorder documented in this encounter Care Teams Burr Bench Hand Relationship Specialty Start Date End Date Valencia Adhikari APRN [address] [place] [address] PCP - General 04/21/14 07/04/23 documented as of this encounter
--- OUTSIDE RECORDS SUMMARY | 2024-01-23 17:54 | XMS_ITS | Encounter Summary ---
Author Organization [facility] Address [facility] [place] [address] Care Team Providers Care President Financial Institution Name Role Phone Valencia Adhikari APRN Primary Care Provider +1 -[phone] Encounter Details Date Type Department Care Team (Latest Contact Info) Description 06/27/2021 3:00 PM EDT TH Visit (TeleHealth) Psychiatry [place] [phone] Lisa Dickens, PhD [facility] [place] [address] Unspecified mood (affective) disorder; Borderline personality disorder [...] EDT INDIVIDUAL THERAPY PROGRESS NOTE CPT CODE 31750 LOCATION: Telehealth visit. Andree SinghTamara gave permission for and was seen for today's appointment with a Telehealth visit. During this visit she was located in her apartment in [place], [place]. Andree Hummel is aware that for any urgent matter she can can contact her regional mental health crisis services. For patients located in [place]: www.[employer] or text/call . Forpatients located in [place]: [email or web address]-services/[email or web address]-xrmo. To reach their [facility] mental health clinician or the outpatient Department of Psychiatry clinics,patient can call [phone]. SESSION DURATION: 30 minutes ATTENDEES: Patient PRIMARY [...] 01/24/2024 1:00 PM EDT Appointment Radiology at [address]1000 Simin Bay MD [facility] OBSTETRICS [place] [address] 01/24/2024 2:00 PM EDT Routine Obstetrics and Gynecology at [place] [phone] Taty Ramos MD [facility] MATERNAL & [place] [address] 02/07/2024 9:00 AM EDT Appointment Radiology at [place] [phone] Simin Bay MD [facility] OBSTETRICS [place] [address] 02/07/2024 10:15 AM EDT Routine Obstetrics and Gynecology at [address]1000 Linda Diaz MD [facility] MATERNAL [place] [address] 03/12/2024 10:45 AM EST Office Visit Endocrinology at [address]1000 James Barth DO [facility] [place] [address] 05/23/2024 Hospital [place] [address] Maite Malloy MD [facility] DR OBSTETRICS [place] [address] documented as of this encounter Visit Diagnoses Diagnosis Unspecified mood (affective) disorder Borderline personality disorder documented in this encounter Care Teams President Financial Institution Relationship Specialty Start Date End Date Valencia Adhikari APRN [address] [place] [address] PCP - General 04/21/14 07/04/23 documented as of this encounter
--- OUTSIDE RECORDS SUMMARY | 2024-01-23 17:54 | XMS_ITS | Encounter Summary ---
[place] [address] Care Team Providers Care Public Transit Specialist Name Role Phone OnofreMarilyn pittshrryan Barton [place] Primary Care Provider +1 -[phone] Encounter Details Date Type Department Care Team (Late st Contact Info) Description 12/07/2021 Telephone [place] [address] Magalie Pinon Social History Tobacco [...] calls can be handled by: Any Procedure Ladle Puller documented in this encounter Plan of Treatment Upcoming Encounters Date Type Department Care Team (Late st Contact Info) Description 01/24/2024 1:00 PM EDT Appointment [place] [address] Walt Bay MD [facility] OBSTETRICS [place] [address] 01/24/2024 2:00 PM EDT Routine Obstetrics and Gynecology at [place] [address] Taty Ramos MD [facility] MATERNAL & [place] [address] 02/07/2024 9:00 AM EDT Appointment Radiology at [place] [address] Walt Bay MD [facility] OBSTETRICS [place] [address] 02/07/2024 10:15 AM EDT Routine Obstetrics and Gynecology at [place] [address] Linda Diaz MD [facility] [place] [address] 03/12/2024 10:45 AM EST Office Visit Endocrinology at [place] [address] James Barth DO [facility] [place] [address] 05/23/2024 [place] [address] Maite Malloy MD [facility] OBSTETRICS [place] [address] documented as of this encounter Visit Diagnoses Not on filedocumented in this encounter Care Teams Public Transit Specialist Relationship Specialty Start Date End Date Valencia Adhikari, PLATE MILL MILL HAND [address] [place] [address] PCP - General 04/21/14 07/04/23 documented as of this encounter
--- OUTSIDE RECORDS SUMMARY | 2024-01-23 17:54 | XMS_ITS | Encounter Summary ---
Author Organization [facility] Address [facility] [place] [address] Care Team Providers Care Blister Rust Eradicator Name Role Phone Richard Rasheed MD Primary Care Provider [phone] Encounter Details Date Type Department Care Team (Late Contact Info) Description 08/13/2023 Telephone Obstetrics [place] [address] Sarah Tejeda Social History Tobacco [...] Department Care Team (Late Contact Info) Description 01/24/2024 1:00 PM EDT [place] [address] Walt Bay MD [facility] DR OBSTET[place] [address] 01/24/2024 2:00 PM EDT Routine Obstetrics [place] [address] Taty Ramos MD [facility] MATERNAL & [place] [address] 02/07/2024 9:00 AM EDT Appointment Radiology at [address] Walt Bay MD [facility] DR OBSTETRICS [place] [address] 02/07/2024 10:15 AM EDT Routine Obstetrics and Gynecology at [address] Linda Diaz MD [facility] MATERNAL [place] [address] 03/12/2024 10:45 AM EST Office [place] [address] James Barth DO [facility] [place] [address] 05/23/2024 [place] [address] Maite Malloy MD [facility] DR OBSTETRICS [place] [address] documented as of this encounter Visit Diagnoses Not on filedocumented in this encounter Care Teams Blister Rust Eradicator Relationship Specialty Start Date End Date Richard Rasheed MD [address] [place] [address] PCP - General Family Medicine 07/05/23 documented as of this encounter
--- OUTSIDE RECORDS SUMMARY | 2024-01-23 17:54 | XMS_ITS | Encounter Summary ---
Author Organization [facility] Address [facility] [place] [address] Care Team Providers Care Enterprise Records Analyst Name Role Phone Valencia Adhikari APRN Primary Care Provider [phone] Encounter Details Date Type Department Care Team (Latest Contact Info) Description 08/18/2021 9:18 PM EDT - 08/18/2021 11:59 PM EDT Hospital [place] [address] Substance use disorder Discharge Disposition: Home Social [...] mouth nightly. 30 tablet 1 07/27/2021 11/15/2023 ergocalciferoL, vitamin D2, (vitamin D) 50,000 unit Capsule Take 1 capsule by mouth once a week. 13 capsule 4 05/10/2021 05/10/2022 cyanocobalamin, vitamin B-12, 500 mcg Tablet Take [...] 01/24/2024 1:00 PM [place] [address] Simin Bay MD [facility] DR OBSTETRICS [place] [address] 01/24/2024 2:00 PM EDT Routine Obstetrics [place] [address] Taty Ramos MD [facility] MATERNAL & [place] [address] 02/07/2024 9:00 AM [place] [address] Simin Bay MD [facility] OBSTETRICS [place] [address] 02/07/2024 10:15 AM EDT Routine Obstetrics [place] [address] Linda Diaz MD [facility] MATERNAL [place] [address] 03/12/2024 10:45 AM EST Office Visit Endocrinology at [facility] [place] [address] James Barth DO [facility] [place] [address] 05/23/2024 Hospital Encounter Birthing [facility] [place] [address] Maite Malloy MD [facility] OBSTETRICS [place] [address] documented as of this encounter Procedures Procedure Name Priority Date/Time Associated Diagnosis Comments OPIOIDS CONFIRMATION PANEL, URINE ([address] WAY) Routine 08/18/2021 1:30 PM EDT Substance use disorder RAPID DRUG SCREEN, COMPLIANCE MONITORING Routine 08/18/2021 1:30 PM EDT Substance use disorder HC URINE DRUG SCREEN BY INSTRUMENT Routine 08/18/2021 1:30 PM EDT Substance use disorder ALCOHOL BIOMARKERS CONFIRMATION Routine 08/18/2021 1:30 PM EDT HC [facility] ALCOHOL BIOMARKERS, URINE Routine 08/18/2021 1:30 PM EDT Substance use disorder THC (MARIJUANA), URINE, CONFIRMATION Routine 08/18/2021 1:30 PM EDT documented in this encounter Results * Alcohol Biomarkers Confirmation (08/18/2021 1:30 PM EDT) Ethyl Glucuronide ( Cutoff: 250 ng/mL [facility] Comment: Test Performed by: [facility] [address] [place] [address] Channel Program Manager: Griffin Gustafson M.D. Ph.D.; CLIA# [id number] Ethyl Sulfate (2438 Cutoff: 100 ng/mL [facility] Comment: Test Performed by: [facility] [place] [address] Channel Program Manager: Griffin Gustafson M.D. Ph.D.; CLIA# [id number] Ethyl Gluc/Sulfate Interpretation (AUGUST) SEE COMMENTS [facility] Comment: Positive. A positive interpretation will [...] its performance characteristics determined by [facility] in a manner consistent with CLIA requirements. This test has not been cleared or approved by the U.S. Food and Drug Administration. Test Performed by: [facility] [place] [address] Channel Program Manager: Griffin Gustafson M.D. Ph.D.; CLIA# [id number] Urine 08/18/2021 1:30 PM EDT 08/19/2021 8:36 AM EDT Narrative Resulting Agency Comment Spec In Lab Jose Angel Miller MD CHEMISTRY ORDERABLES [facility] [place] [address] * THC (Marijuana), Urine Confirmation (08/18/2021 1:30 [...] developed and its performance characteristics ?determined by [facility] in a manner consistent with CLIA ?requirements. This test has not been cleared or approved by ?the U.S. Food and Drug Administration. ?Test Performed by: ?[facility] ?[address] [place] [address] ?Channel Program Manager: Griffin Gustafson M.D. Ph.D.; CLIA# [id number] [facility] Urine 08/18/2021 1:30 PM EDT 08/19/2021 8:36 AM EDT Narrative Resulting Agency Comment Spec In Lab Jose Angel Miller MD LAB SEND OUT ORDERAB LES [facility] [place] [address] * Opioids Confirmation Panel, Urine (08/18/2021 1:30 PM EDT) Targeted Opioid Panel, Urine (MAY) Test ?Result ? Flag ??Unit ?? RefValue ------- Targeted Opioid Screen, U ??List prescribed opioids ? See medication list ? ---ADDITIONAL INFORMATION------- ?Accuracy and completeness of declared medications on ?reports solely dependent on information submitted by ?client. ??Codeine ? Not Detected ? ng/mL ??Cutoff: 25 ?Tylenol 3 ??Myxczds-9-apae-g lucuronide ?Not Detected ? ng/mL ??Cutoff: 100 ?Metabolite of codeine ??Morphine ?Not Detected ? ng/mL ??Cutoff: 25 ?Avitwan, [place], [place] Contin; Also a minor metabolite (10%) of ?codeine and can be seen in low concentrations (<2,000 ?ng/mL) with poppy seed ingestion. ??Inophvtf-2-jpmk- glucuronide ? Not Detected ? ng/mL ??Cutoff: 100 ?Metabolite of morphine ??6-monoacetylmorp brigette ?Not Detected ? ng/mL ??Cutoff: 25 ?Metabolite of heroin ??Hydrocodone ? Not Detected ? ng/mL ??Cutoff: 25 ?Lortab, [place], Vicodin; Also a very minor metabolite of [...] ?Numorphan, Opana; Also a metabolite of oxycodone. ??Gehrcsgiepg-7-ck ta-glucuronide ?Not Detected ? ng/mL ??Cutoff: 100 [...] ?Not Detected ? ng/mL ??Cutoff: 25 ?Narcan ??Cireuewz-0-upwi- glucuronide ? Not Detected ? ng/mL ??Cutoff: [...] developed and its performance characteristics ?determined by [facility] in a manner consistent with CLIA ?requirements. This test has not been cleared or approved by ?the U.S. Food and Drug Administration. ?Test Performed by: ?[facility] ?[address] [place] [address] ?Channel Program Manager: Girffin Gustafson M.D. Ph.D.; CLIA# [id number] [facility] Urine 08/18/2021 1:30 PM EDT 08/19/2021 8:36 AM EDT Jose Angel Miller MD LAB SEND OUT ORDERAB LES [facility] [address] [place] [address] * (ABNORMAL) Rapid Drug Screen, Compliance Monitoring (08/18/2021 1:30 PM EDT) Pathologist [facility] Barbiturates Screen, Urine None Detected None Detected [facility] Comment: The barbiturate screen detects barbiturates at concentrations >200 ng/mL. Note: Not all barbiturates cross-react equally with antibody used in this screen. A ? Presumptive Positive? result indicates that the screening result was positive but has not yet been confirmed by a highly-specific method. As with any screen, occasional false positive results from cross-reacting substances may occur. Not for Medico-Legal Purposes. Benzodiazepines Screen, Urine None Detected None Detected [facility] Comment: The benzodiazepines screen detects benzodiazepines [...] substances may occur. Not for Medico-Legal Purposes. Cocaine Screen, Urine None Detected None Detected [facility] Comment: The cocaine metabolites screen detects benzoylecgonine (Cocaine Metabolite) at concentrations >150 ng/mL. A ? Presumptive Positive? result indicates that the screening result was positive but has not yet been confirmed by a highly-specific method. As with any screen, occasional false positive results from cross-reacting substances may occur. Not for Medico-Legal Purposes. Cannabinoid Screen, Urine Presumptive Pos(A) None Detected [facility] Comment: The marijuana metabolites screen detects the THC metabolite (87-eia-0-carboxy-delta 9-THC) at concentrations >20 ng/mL. A ? Presumptive Positive? result indicates that the screening result was positive but has not yet been confirmed by a highly-specific method. As with any screen, occasional false positive results from cross-reacting substances may occur. Not for Medico-Legal Purposes. Tricyclics Screen, Urine None Detected None Detected [facility] Comment: The tricyclics screen detects tricyclic antidepressants at concentrations >150 ng/mL. Not all tricyclics cross-react equally with the antibody used in this screen. A ? Presumptive Positive? result indicates that the screening result was positive but has not yet been confirmed by a highly-specific method. As with any screen, occasional false positive results from cross-reacting substances may occur. Not for Medico-Legal Purposes. Ethanol Screen, Urine None Detected None Detected [facility] Comment:This urine ethanol a ssay detects ethanol at concentrations >/= 100 mg/L. Amphetamines Screen, Urine None Detected None Detected [facility] Comment: The amphetamine screen detects d-amphetamine and d-methamphetamine at concentrations >300 ng/mL. A ? Presumptive Positive? result indicates that the screening result was positive but has not yet been confirmed by a highly-specific method. As with any screen, occasional false positive results from cross-reacting substances may occur. Not for Medico-Legal Purposes. Adulterants Screen, Urine None Detected None Detected [facility] Comment: No adulteration or dilution of this urine sample was detected. All urine samples submitted for urine drugs of abuse analysis are tested for creatinine concentration, pH, and for the presence of oxidants, nitrites, and chromate. Urine 08/18/2021 1:30 PM EDT 08/18/2021 9:33 PM EDT Narrative Resulting Agency Comment Spec In Lab Jose Angel Miller MD URINE ORDERABLES Performing Organization Address [facility] Co de Phone Number [facility] [place] [address] * (ABNORMAL) Alcohol Biomarkers (08/18/2021 1:30 PM EDT) Ethyl Glucuronide Screen (AUGUST) SEE COMMENT(A ) Cutoff: 500 ng/mL [facility] Comment: RESULT: Presumptive Positive Drug confirmation to follow. ??Presumptive Positive means that the screening method is positive, but the test needs to be run by a confirmatory method. ADDITIONAL INFORMATION This test was developed and its performance characteristics determined by [facility] in a manner consistent with CLIA requirements. This test has not been cleared or approved by the U.S. Food and Drug Administration. Test Performed by: [facility] [place] [address] Channel Program Manager: Griffin Gustafson M.D. Ph.D.; CLIA# [id number] Urine 08/18/2021 1:30 PM EDT 08/19/2021 8:36 AM EDT Narrative Resulting Agency Comment Spec In Lab Jose Angel Miller MD LAB SEND OUT ORDERAB LES Performing Organization Address [facility] Co de Phone Number [facility] [place] [address] documented in this encounter Visit Diagnoses Diagnosis Substance use disorder documented in this encounter Care Teams Enterprise Records Analyst Relationship Specialty Start Date End Date Valencia Adhikari APRN [address] [place] [address] PCP - General 04/21/14 07/04/23 documented as of this encounter
--- OUTSIDE RECORDS SUMMARY | 2024-01-23 17:54 | XMS_ITS | Encounter Summary ---
Author Organization [facility] Address [facility] [address] Care Team Providers Care Chief Service Dispatcher Name Role Phone Valencia Adhikari APRN Primary Care Provider [phone] Encounter Details Date Type Department Care Team (Late st Contact Info) Description 10/03/2021 Notes Only Psychiatry [place] [phone] Crispin Fuller MD [facility] [place] [address] Social History Tobacco Use Types Packs/Day Years [...] 01/24/2024 1:00 PM EDT [place] [address] Simin Bay MD [facility] OBSTETRICS [place] [address] 01/24/2024 2:00 PM EDT Routine Obstetrics [place] [address] Taty Ramos MD [facility] MATERNAL & [place] [address] 02/07/2024 9:00 AM EDT Appointment Radiology at [facility] [address] [place] [address] Simin Bay MD [facility] [place] [address] 02/07/2024 10:15 AM EDT Routine Obstetrics and Gynecology at [place] [address] Linda Diaz MD [facility] [place] [address] 03/12/2024 10:45 AM EST Office Visit Endocrinology at [place] [address] James Barth DO [facility] [place] [address] 05/23/2024 Hospital [place] [address] Maite Malloy MD [facility] [place] [address] documented as of this encounter Visit Diagnoses Not on filedocumented in this encounter Care Teams Chief Service Dispatcher Relationship Specialty Start Date End Date Valencia Adhikari APRN [address] [place] [address] PCP - General 04/21/14 07/04/23 documented as of this encounter
--- OUTSIDE RECORDS SUMMARY | 2024-01-23 17:54 | XMS_ITS | Encounter Summary ---
Author Organization [facility] Address [facility] [place] [address] Care Team Providers Care Dermatologist Managing Partner Name Role Phone Richard Rasheed MD Primary Care Provider [phone] Encounter Details Date Type Department Care Team (Late Contact Info) Description 08/15/2023 Telephone Obstetrics [place] [address] Sarah Tejeda Social History Tobacco [...] 01/24/2024 1:00 PM EDT [place] [address] Walt Bay MD [facility] DR OBSTETRICS [place] [address] 01/24/2024 2:00 PM EDT Routine Obstetrics [place] [address] Taty aRmos MD [facility] MATERNAL & [place] [address] 02/07/2024 9:00 AM EDT Appointment Radiology at [address] Walt Bay MD [facility] DR OBSTETRICS [place] [address] 02/07/2024 10:15 AM EDT Routine Obstetrics and Gynecology at [address] Linda Diaz MD [facility] [place] [address] 03/12/2024 10:45 AM EST Office [place] [address] James Barth DO [facility] [place] [address] 05/23/2024 [place] [address] Maite Malloy MD [facility] DR OBSTETRICS [place] [address] documented as of this encounter Visit Diagnoses Not on filedocumented in this encounter Care Teams Dermatologist Managing Partner Relationship Specialty Start Date End Date Richard Rasheed MD [address] [place] [address] PCP - General Family Medicine 07/05/23 documented as of this encounter
--- OUTSIDE RECORDS SUMMARY | 2024-01-23 17:54 | XMS_ITS | Encounter Summary ---
Author Organization [facility] [place] [address] Care Team Providers Care Life Insurance Salesperson Name Role Phone Valencia Adhikari APRN Primary Care Provider [phone] Encounter Details Date Type Department Care Team (Late st Contact Info) Description 05/10/2021 Telephone [place] [address] Maite Goff RN Social History [...] 01/24/2024 1:00 PM EDT Appointment Radiology at [place] [phone] Walt Bay MD [facility] OBSTETRICS [place] [address] 01/24/2024 2:00 PM EDT Routine Obstetrics and Gynecology at [place] [phone] Taty Ramos MD [facility] MATERNAL & [place] [address] 02/07/2024 9:00 AM EDT [place] [address] Walt Bay MD [facility] OBSTETRICS [place] [address] 02/07/2024 10:15 AM EDT Routine Obstetrics and Gynecology at [place] [phone] Linda Diaz MD [facility] [place] [address] 03/12/2024 10:45 AM EST Office Visit Endocrinology at [place] [phone] James Barth DO [facility] [place] [address] 05/23/2024 Hospital Encounter Birthing [place] [phone] Maite Malloy MD [facility] DR OBSTETRICS [place] [address] documented as of this encounter Visit Diagnoses Not on filedocumented in this encounter Care Teams Life Insurance Salesperson Relationship Specialty Start Date End Date Valencia Adhikari APRN [address] [place] [address] PCP - General 04/21/14 07/04/23 documented as of this encounter
--- OUTSIDE RECORDS SUMMARY | 2024-01-23 17:54 | XMS_ITS | Encounter Summary ---
Author Organization [facility] [place] [address] Care Team Providers Care Mapping Engineer Name Role Phone Richard Rasheed MD Primary Care Provider [phone] Encounter Details Date Type Department Care Team (Late st Contact Info) Description 07/22/2023 Telephone Obstetrics [place] [address] Heavenly Blackmon MD [facility] DR OBSTETRICS [place] [address] Social History Tobacco Use Types Packs/Day Years [...] 01/24/2024 1:00 PM EDT Appointment Radiology at [address] Walt Bay MD [facility] OBSTETRICS [place] [address] 01/24/2024 2:00 PM EDT Routine Obstetrics and Gynecology at [address] Taty Ramos MD [facility] MATERNAL & [place] [address] 02/07/2024 9:00 AM EDT Appointment Radiology at [address] Walt Bay MD [facility] OBSTETRICS [place] [address] 02/07/2024 10:15 AM EDT Routine Obstetrics and Gynecology at [address] Linda Diaz MD [facility] [place]NAL [place] [address] 03/12/2024 10:45 AM EST Office Visit Endocrinology at [address] James Barth DO [facility] [place] [address] 05/23/2024 Hospital [place] [address] Maite Malloy MD [facility] OBSTETRICS [place] [address] documented as of this encounter Visit Diagnoses Not on filedocumented in this encounter Care Teams Mapping Engineer Relationship Specialty Start Date End Date Richard Rasheed MD [address] [place] [address] PCP - General Family Medicine 07/05/23 documented as of this encounter
--- OUTSIDE RECORDS SUMMARY | 2024-01-23 17:54 | XMS_ITS | Encounter Summary ---
Author Organization [facility] Address [facility] [place] [address] Care Team Providers Care Commodity Broker Name Role Phone Valencia Adhikari APRN Primary Care Provider [phone] Encounter Details Date Type Department Care Team (Latest Contact Info) Description 09/01/2021 11:00 AM EDT TH Visit (TeleHealth) Psychiatry [place] [phone] Lisa Dickens, PhD [facility] [place] [address] Borderline personality disorder; Unspecified mood (affective) disorder [...] EDT INDIVIDUAL THERAPY PROGRESS NOTE CPT CODE 01865 LOCATION: Telehealth visit. Andree SinghTamara gave permission for and was seen for today's appointment with a Telehealth visit. During this visit she was located in her apartment in [place], [place]. Andree Hummel is aware that for any urgent matter she can can contact her regional mental health crisis services. For patients located in [place]: [email or web address] or text/call . Forpatients located in [place]: [email or web address]. To reach their [facility] mental health clinician or the outpatient Department of Psychiatry clinics,patient can call [phone]. SESSION DURATION: 20 minutes ATTENDEES: Patient PRIMARY COMPLAINT/DIAGNOSIS: Borderline Personality Disorder; Unspecified Mood Disorder; R/O PTSD TREATMENT MODALITY: DBT PATIENT REPORT OF CURRENT FUNCTIONING/CHANGES: Patient reported: -doing better, the sun helps, gardening with son -work has been a joke--they cut her hours and haven't given them back, having to use sick time and PTO to fill in paycheck -trip to [place] at end of September, feels weird about it all, hasn't seen this extended family in 15 years -can't afford the gas to go to the [facility], had to cancel appointment scheduled for tomorrow -having problems with landlord -going over to closest friends today, then going on a date CENTRAL THEME OF SESSION: coping skills IN-SESSION PROCEDURES: I provided empathic listening and validation. I encouraged patient to contact [facility] and explain that she cannot afford [...] 01/24/2024 1:00 PM EDT Appointment Radiology at [address] Simin Bay MD [facility] OBSTETRICS [place] [address] 01/24/2024 2:00 PM EDT Routine Obstetrics and Gynecology at [place] [phone] Taty Ramos MD [facility] MATERNAL & [place] [address] 02/07/2024 9:00 AM EDT Appointment Radiology at [place] [phone] Simin Bay MD [facility] OBSTETRICS [place] [address] 02/07/2024 10:15 AM EDT Routine Obstetrics and Gynecology at [address] Linda Diaz MD [facility] [place] [address] 03/12/2024 10:45 AM EST Office [place] [address] James Barth DO [facility] [place] [address] 05/23/2024 Hospital Encounter Birthing [place] [phone] Maite Malloy MD [facility] DR OBSTETRICS [place] [address] documented as of this encounter Visit Diagnoses Diagnosis Borderline personality disorder Unspecified mood (affective) disorder documented in this encounter Care Teams Commodity Broker Relationship Specialty Start Date End Date Valencia Adhikari APRN [address] [place] [address] PCP - General 04/21/14 07/04/23 documented as of this encounter
--- OUTSIDE RECORDS SUMMARY | 2024-01-23 17:54 | XMS_ITS | Encounter Summary ---
Author Organization [facility] Address [facility] [place] [address] Care Team Providers Care Stock Ranch Supervisor Name Role Phone Valencia Adhikari APRN Primary Care Provider [phone] Encounter Details Date Type Department Care Team (Latest Contact Info) Description 09/22/2021 11:00 AM EDT TH Visit (TeleHealth) Psychiatry [place] [phone] Lisa Dickens, PhD [facility] [place] [address] Unspecified mood (affective) disorder; Borderline personality disorder [...] EDT INDIVIDUAL THERAPY PROGRESS NOTE CPT CODE 75413 LOCATION: Telehealth visit. Andree SinghTamara gave permission for and was seen for today's appointment with a Telehealth visit. During this visit she was located in her apartment in [place], [place]. Andree Hummel is aware that for any urgent matter she can can contact her regional mental health crisis services. For patients located in [place]: [email or web address] or text/call . Forpatients located in [place]: [email or web address]. To reach their [facility] mental health clinician or the outpatient Department of Psychiatry clinics,patient can call [phone]. SESSION DURATION: 25 minutes ATTENDEES: Patient PRIMARY [...] 01/24/2024 1:00 PM EDT Appointment Radiology at [address]1000 Simin Bay MD [facility] DR OBSTET[place]ICS [place] [address] 01/24/2024 2:00 PM EDT Routine Obstetrics and Gynecology at [place] [phone] Taty Ramos MD [facility] DR MATERNAL & [place] [address] 02/07/2024 9:00 AM EDT Appointment Radiology at [place] [phone] Simin Bay MD [facility] DR OBSTET[place] [address] 02/07/2024 10:15 AM EDT Routine Obstetrics and Gynecology at [place] [phone] Linda Diaz MD [facility] [place] [address] 03/12/2024 10:45 AM EST Office [place] [address] James Barth DO [facility] [place] [address] 05/23/2024 Hospital [place] [address] Maite Malloy MD [facility] OBSTETRICS [place] [address] documented as of this encounter Visit Diagnoses Diagnosis Unspecified mood (affective) disorder Borderline personality disorder documented in this encounter Care Teams Stock Ranch Supervisor Relationship Specialty Start Date End Date Valencia Adhikari APRN [address] [place] [address] PCP - General 04/21/14 07/04/23 documented as of this encounter
--- OUTSIDE RECORDS SUMMARY | 2024-01-23 17:54 | XMS_ITS | Encounter Summary ---
Author Organization [facility] Address [facility] [place] [address] Care Team Providers Care Chemical Laboratory Technician Name Role Phone Valencia Adhikari APRN Primary Care Provider [phone] Encounter Details Date Type Department Care Team (Latest Contact Info) Description 07/21/2021 11:00 AM EDT TH Visit (TeleHealth) Psychiatry [place] [phone] Lisa Dickens, PhD [facility] [place] [address] Unspecified mood (affective) disorder; Borderline personality disorder [...] EDT INDIVIDUAL THERAPY PROGRESS NOTE CPT CODE 48289 LOCATION: Telehealth visit. Andree SinghTamara gave permission for and was seen for today's appointment with a Telehealth visit. During this visit she was located in her apartment in [place], [place]. Andree Hummel is aware that for any urgent matter she can can contact her regional mental health crisis services. For patients located in [place]: [email or web address] or text/call . Forpatients located in [place]: [email or web address]. To reach their [facility] mental health clinician or the outpatient Department of Psychiatry clinics,patient can call [phone]. 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 -worried she will lose her job, her car, has court date in October, not sure she can afford a family support specialist CENTRAL THEME OF SESSION: Crisis Survival Skills [...] 01/24/2024 1:00 PM [place] [address] Simin Bay MD [facility] OBSTETRICS [place] [address] 01/24/2024 2:00 PM EDT Routine Obstetrics and Gynecology at [place] [phone] Taty Ramos MD [facility] MATERNAL & [place] [address] 02/07/2024 9:00 AM EDT Appointment Radiology at [place] [phone] Simin Bay MD [facility] OBSTETRICS [place] [address] 02/07/2024 10:15 AM EDT Routine Obstetrics [place] [address] Lnida Diaz MD [facility] [place] [address] 03/12/2024 10:45 AM EST Office Visit Endocrinology at [address]1000 James Barth DO [facility] [place] [address] 05/23/2024 Hospital Encounter Birthing [place] [phone] Maite Malloy MD [facility] DR OBSTETRICS [place] [address] documented as of this encounter Visit Diagnoses Diagnosis Unspecified mood (affective) disorder Borderline personality disorder documented in this encounter Care Teams Chemical Laboratory Technician Relationship Specialty Start Date End Date Valencia Adhikari APRN [address] [place] [address] PCP - General 04/21/14 07/04/23 documented as of this encounter
--- OUTSIDE RECORDS SUMMARY | 2024-01-23 17:54 | XMS_ITS | Encounter Summary ---
Author Organization [facility] Address [facility] [place] [address] Care Team Providers Care Language Asst Name Role Phone Richard Rasheed MD Primary Care Provider [phone] Encounter Details Date Type Department Care Team (Late st Contact Info) Description 10/19/2023 Telephone [place] [phone] Tye Gamble MD [facility] OBSTETRICS [place] [address] Social History Tobacco Use Types Packs/Day Years [...] from your doctor or pharmacy? Never 10/12/2023 [facility] Utilities Answer Date Recorded In the past 12 months has e [employer], gas, oil, or water [employer] threatened to shut off services in your [...] 2 weeks. [facility] message sent to patient earlier this week with reminder to complete beta hcg. Andree reports that she is doing well at this time, denies any further vaginal bleeding or spotting. Tried to get lab drawn at [facility] this week, however was told she needed to get first measurement at [facility] (lab requisition already sent to [facility], with no specification on where/when lab needs [...] 01/24/2024 1:00 PM ED[place] [address] Walt Bay MD [facility] [place] [address] 01/24/2024 2:00 PM EDT Routine Obstetrics [place] [address] Taty Ramos MD [facility] MATERNAL & [place] [address] 02/07/2024 9:00 AM EDT Appointment Radiology at [address]1000 Walt Bay MD [facility] DR OBSTETRICS [place] [address] 02/07/2024 10:15 AM EDT Routine Obstetrics and Gynecology at [address]1000 Linda Diaz MD [facility] MATERNAL [place] [address] 03/12/2024 10:45 AM EST Office Visit Endocrinology at [address]1000 James Barth DO [facility] DR ENDOCRIN[place] [address] 05/23/2024 Hospital [place] [address] Maite Malloy MD [facility] DR OBSTETRICS [place] [address] documented as of this encounter Visit Diagnoses Not on filedocumented in this encounter Care Teams Language Asst Relationship Specialty Start Date End Date Richard Rasheed MD [address] [place] [address] PCP - General Family Medicine 07/05/23 documented as of this encounter
--- OUTSIDE RECORDS SUMMARY | 2024-01-23 17:54 | XMS_ITS | Encounter Summary ---
Author Organization [facility] Address [facility] [place] [address] Care Team Providers Care Stove Mechanic Name Role Phone OnofreMarilyn pittshryn Oralia SLADE Primary Care Provider [phone] Encounter Details Date Type Department Care Team (Late st Contact Info) Description 04/13/2023 Orders Only Obstetrics and [place]cology [place] [address] Jody Wood, RN Vaginal bleeding [...] 1:00 PM EDT Appointment [place] [address] Walt Bay MD [facility] DR OBSTETRICS [place] [address] 01/24/2024 2:00 PM EDT Routine Obstetrics and [place] [address] Taty Ramos MD [facility] MATERNAL & [place] [address] 02/07/2024 9:00 AM EDT Appointment Radiology at [address]1000 Walt Bay MD [facility] DR [place] [address] 02/07/2024 10:15 AM EDT Routine Obstetrics and Gynecology at [address]1000 Linda Diaz MD [facility] [place] [address] 03/12/2024 10:45 AM EST [place] [address] James Barth DO [facility] [address] 05/23/2024 Hospital Encounter Birthing [place] [phone] Maite Malloy MD [facility] DR [place] [address] documented as of this encounter Visit Diagnoses Diagnosis Vaginal bleeding in , first trimester documented in this encounter Care Teams Stove Mechanic Relationship Specialty Start Date End Date Valencia Adhikari APRN [address] [place] [address] PCP - General 04/21/14 07/04/23 documented as of this encounter
--- OUTSIDE RECORDS SUMMARY | 2024-01-23 17:54 | XMS_ITS | Encounter Summary ---
[place] [address] Care Team Providers Care Electrical Designer Name Role Phone OnofreMarilyn pittshryn Oralia SLADE Primary Care Provider [phone] Encounter Details Date Type Department Care Team (Late st Contact Info) Description 09/21/2021 Telephone [place] [address] Genet Johnston Social History Tobacco [...] 01/24/2024 1:00 PM EDT Appointment [place] [address] Walt Bay MD [facility] [place] [address] 01/24/2024 2:00 PM EDT Routine Obstetrics and Gynecology at [place] [address] Taty Ramos MD [facility] MATERNAL & [place] [address] 02/07/2024 9:00 AM EDT Appointment Radiology at [place] [address] Walt Bay MD [facility] [place] [address] 02/07/2024 10:15 AM EDT Routine Obstetrics and Gynecology at [place] [address] Linda Diaz MD [facility] [place] [address] 03/12/2024 10:45 AM EST Office Visit Endocrinology at [place] [address] James Barth DO [facility] [address] 05/23/2024 [place] [address] Maite Malloy MD [facility] [place] [address] documented as of this encounter Visit Diagnoses Not on filedocumented in this encounter Care Teams Electrical Designer Relationship Specialty Start Date End Date Valencia Adhikari APRN [address] [place] [address] PCP - General 04/21/14 07/04/23 documented as of this encounter
--- OUTSIDE RECORDS SUMMARY | 2024-01-23 17:54 | XMS_ITS | Encounter Summary ---
Author Organization [facility] [place] [address] Care Team Providers Care Electronics Assembler Name Role Phone Richard Rasheed MD Primary Care Provider [phone] Encounter Details Date Type Department Care Team (Late st Contact Info) Description 10/23/2023 Telephone Obstetrics [place] [address] Natalia Bravo, RN Social History [...] from your doctor or pharmacy? Never 10/12/2023 [facility] Utilities Answer Date Recorded In the past 12 months has [facility] [employer], [employer], oil, or water [employer] threatened to shut off services in your [...] answer and VM box full. Sent a [email or web address] message to follow up/make a plan for a call. documented in this encounter Plan of Treatment Upcoming Encounters Date Type Department Care Team (Late st Contact Info) Description 01/24/2024 1:00 PM EDT Appointment Radiology at [place] [address] Walt Bay MD [facility] OBSTETRICS [place] [address] 01/24/2024 2:00 PM EDT Routine Obstetrics and Gynecology at [place] [address] Taty Ramos MD [facility] MATERNAL & [place] [address] 02/07/2024 9:00 AM EDT Appointment Radiology at [place] [address] Walt Bay MD [facility] DR OBSTETRICS [place] [address] 02/07/2024 10:15 AM EDT Routine Obstetrics and Gynecology at [place] [address] Linda Diaz MD [facility] MATERNAL [place] [address] 03/12/2024 10:45 AM EST Office Visit Endocrinology at [address]1000 James Barth DO [facility] DR [place]IN[place] [address] 05/23/2024 [place] [address] Maite Malloy MD [facility] OBSTET[place]ICS [place] [address] documented as of this encounter Visit Diagnoses Not on filedocumented in this encounter Care Teams Electronics Assembler Relationship Specialty Start Date End Date Richard Rasheed MD [address] [place] [address] PCP - General Family Medicine 07/05/23 documented as of this encounter
--- OUTSIDE RECORDS SUMMARY | 2024-01-23 17:54 | XMS_ITS | Encounter Summary ---
Author Organization [facility] Address [facility] [place] [address] Care Team Providers Care Shoe Planner Name Role Phone OnofreValencia pitts [place] Primary Care Provider [phone] Reason for Visit * Reason Onset Date Comments Medication Refill 05/11/2021 Encounter Details Date Type Department Care Team (Late st Contact Info) Description 05/11/2021 [place] [address] Maite Goff RN Social History [...] 01/24/2024 1:00 PM ED[place] [address] Walt Bay MD [facility] DR OBSTET[place]ICS [place] [address] 01/24/2024 2:00 PM EDT Routine Obstetrics [place] [address] Taty Ramos MD [facility] DR MATERNAL & [place] [address] 02/07/2024 9:00 AM EDT Appointment Radiology at [place] [address] Walt Bay MD [facility] DR OBSTETRICS [place] [address] 02/07/2024 10:15 AM EDT Routine Obstetrics and Gynecology at [address]1000 Linda Diaz MD [facility] [place] [address] 03/12/2024 10:45 AM EST Office Visit Endocrinology at [address]1000 James Barth DO [facility] [place] [address] 05/23/2024 Hospital Encounter Birthing [place] [phone] Maite Malloy MD [facility] DR OBSTETRICS [place] [address] documented as of this encounter Visit Diagnoses Not on filedocumented in this encounter Care Teams Shoe Planner Relationship Specialty Start Date End Date Valencia Adhikari APRN [address] [place] [address] PCP - General 04/21/14 07/04/23 documented as of this encounter
--- OUTSIDE RECORDS SUMMARY | 2024-01-23 17:54 | XMS_ITS | Encounter Summary ---
[place] [address] Care Team Providers Care Assessment Manager Name Role Phone OnofreMarilyn pittshrryan Barton [place] Primary Care Provider [phone] Encounter Details Date Type Department Care Team (Late st Contact Info) Description 11/21/2021 Telephone [place] [address] Magalie Pinon Social History Tobacco [...] calls can be handled by: Any Procedure Dryland Farmer documented in this encounter Plan of Treatment Upcoming Encounters Date Type Department Care Team (Late st Contact Info) Description 01/24/2024 1:00 PM EDT Appointment [place] [address] Walt Bay MD [facility] OBSTETRICS [place] [address] 01/24/2024 2:00 PM EDT Routine Obstetrics and Gynecology at [place] [address] Taty Ramos MD [facility] MATERNAL & [place] [address] 02/07/2024 9:00 AM EDT Appointment Radiology at [place] [address] Walt Bay MD [facility] OBSTETRICS [place] [address] 02/07/2024 10:15 AM EDT Routine Obstetrics and Gynecology at [place] [address] Linda Diaz MD [facility] [place]ERNAL [place] [address] 03/12/2024 10:45 AM EST Office Visit Endocrinology at [place] [address] James Barth DO [facility] [place] [address] 05/23/2024 Hospital [place] [address] Maite Malloy MD [facility] OBSTETRICS [place] [address] documented as of this encounter Visit Diagnoses Not on filedocumented in this encounter Care Teams Assessment Manager Relationship Specialty Start Date End Date Onofre, Valencia H, HELP DESK REP [address] [place] [address] PCP - General 04/21/14 07/04/23 documented as of this encounter
--- OUTSIDE RECORDS SUMMARY | 2024-01-23 17:54 | XMS_ITS | Encounter Summary ---
Author Organization [facility] Address [facility] [place] [address] Care Team Providers Care Legislative Analyst Name Role Phone Richard Rasheed MD Primary Care Provider [phone] Encounter Details Date Type Department Care Team (Late st Contact Info) Description 10/26/2023 Telephone Obstetrics [place] [phone] Tye Gamble MD [facility] DR OBSTETRICS & [place] [address] Social History Tobacco Use Types Packs/Day Years [...] from your doctor or pharmacy? Never 10/12/2023 [facility] Utilities Answer Date Recorded In the past 12 months has e [employer], gas, oil, or water [facility] threatened to shut off services in your [...] 01/24/2024 1:00 PM EDT Appointment Radiology at [place] [phone] Walt Bay MD [facility] DR OBSTETRICS AND [place] [address] 01/24/2024 2:00 PM EDT Routine Obstetrics and Gynecology at [place] [phone] Taty Ramos MD [facility] DR MATERNAL & [place] [address] 02/07/2024 9:00 AM EDT Appointment Radiology at [place] [phone] Walt Bay MD [facility] OBSTETRICS [place] [address] 02/07/2024 10:15 AM EDT Routine Obstetrics and Gynecology at [place] [phone] Linda Diaz MD [facility] [place] [address] 03/12/2024 10:45 AM EST Office Visit [place] [address] James Barth DO [facility] DR ENDOCRINOLOGY DEPT [place], [place] [phone] 05/23/2024 [place] [address] Maite Malloy MD [facility] OBSTETRICS [place] [address] documented as of this encounter Visit Diagnoses Not on filedocumented in this encounter Care Teams Legislative Analyst Relationship Specialty Start Date End Date Richard Rasheed MD [address] [place] [address] PCP - General Family Medicine 07/05/23 documented as of this encounter
--- OUTSIDE RECORDS SUMMARY | 2024-01-23 17:54 | XMS_ITS | Encounter Summary ---
Author Organization [facility] Address [facility] [place] [address] Care Team Providers Care Fraud Examiner Name Role Phone Valencia Adhikari APRN Primary Care Provider [phone] Encounter Details Date Type Department Care Team (Latest Contact Info) Description 06/13/2021 3:00 PM EST TH Visit (TeleHealth) Psychiatry [place] [phone] Lisa Dickens, PhD [facility] [place] [address] Unspecified mood (affective) disorder; Borderline personality disorder [...] EST INDIVIDUAL THERAPY PROGRESS NOTE CPT CODE 85606 LOCATION: Telehealth visit. Andree Artislliams gave permission for and was seen for today's appointment with a Telehealth visit. During this visit she was located in her apartment in [place], [place]. Andree Hummel is aware that for any urgent matter she can can contact her regional mental health crisis services. For patients located in [place]: www.Trapmine or text/call . Forpatients located in [place]: [email or web address].[facility]/services/emergency-[email or web address]/[email or web address]-[email or web address]-asps. To reach their [facility] [place] mental health clinician or the outpatient Department of Psychiatry clinics,patient can call [phone]. SESSION DURATION: 40 minutes ATTENDEES: Patient PRIMARY [...] 1:00 PM EDT Appointment Radiology at [address] [facility] [place]ST[place] [address] 01/24/2024 2:00 PM EDT Routine Obstetrics and Gynecology at [place] [phone] [facility] [place]NAL [place] [address] 02/07/2024 9:00 AM EDT Appointment Radiology at [place] [phone] [facility] [place] [address] 02/07/2024 10:15 AM EDT Routine Obstetrics and Gynecology at [address] [facility] [place] [address] 03/12/2024 10:45 AM EST Office [place] [address] [facility] [place] [address] 05/23/2024 [place] [address] [facility] DR OBSTETRICS [place] [address] documented as of this encounter Visit Diagnoses Diagnosis Unspecified mood (affective) disorder Borderline personality disorder documented in this encounter Care Teams Fraud Examiner Relationship Specialty Start Date End Date Valencia Adhikari APRN [address] [place] [address] PCP - General 04/21/14 07/04/23 documented as of this encounter
--- OUTSIDE RECORDS SUMMARY | 2024-01-23 17:54 | XMS_ITS | Encounter Summary ---
Author Organization [facility] Address [facility] [place] [address] Care Team Providers Care Disaster Response Director Name Role Phone Valencia Adhikari APRN Primary Care Provider [phone] Encounter Details Date Type Department Care Team (Latest Contact Info) Description 07/27/2021 3:30 PM EDT TH Visit (TeleHealth) Psychiatry [place] [phone] Crispin Fuller MD [facility] [place] [address] Borderline personality disorder; Substance use disorder Social [...] Attendee(s): Patient This patient was seen with site supervisor Dr. Awad. See their note for confirmatory and/or revisionarydocumentation. Andree Hummel gave permission for and was seen for today's appointment with a Telehealth visit. During this visit they were located in [place]. Andree Hummel is aware that for any urgent matter they can call: If you are located in [place], please call your local community crisis line at [place]: [facility] [phone],[place]: [facility] [place] [phone], or text [place] to [phone] For further information for [place] residents: [email or web address] To reach your mental health clinician or the outpatient Department of Psychiatry clinics: [phone] Chief Complaint: Its bad History of Present [...] therapist to pursue outpatient substance treatment through [facility] with plans for first visit next . [...] cats and a dog. 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 Vitals (24hr Range): No data found. Musculoskeletal System: normal gait and balance, ambulates independently and no atrophy Mental Status Exam: ?? Appearance: age appropriate and casually dressed ?? Behavior: cooperative with the interview and calm ?? Speech: normal pitch, normal volume, normal rate and normal rhythm ?? Language: fluent in kyrgyz ?? Mood: terrrible ?? Affect: constricted ?? [...] to engage in outpatient substance treatment at [facility] starting next and reports a goal of [...] associated legal issues. Has an appointment at [facility] next week. Reports using cannabis, drinking a six-pack weekly. Reports depressed mood. Denies suicidalideation. Plan today to change Effexor to XR and increase to 150mg daily, continue mirtazapine 15mgqHS. Jessica Awad MD documented in this encounter Plan of Treatment Upcoming Encounters Date Type Department Care Team (Late st Contact Info) Description 01/24/2024 1:00 PM EDT Appointment Radiology at [place] [phone] Simin Bay MD [facility] DR OBSTETRICS [place] [address] 01/24/2024 2:00 PM EDT Routine Obstetrics and Gynecology at [place] [phone] Taty Ramos MD [facility] DR MATERNAL & [place] [address] 02/07/2024 9:00 AM EDT Appointment Radiology at [place] [phone] Simin Bay MD [facility] DR OBSTETRICS [place] [address] 02/07/2024 10:15 AM EDT Routine Obstetrics and Gynecology at [place] [phone] Linda Diaz MD [facility] DR MATERNAL [place] [address] 03/12/2024 10:45 AM EST Office [place] [address] James Barth DO [facility] [place]OCRIN[place] [address] 05/23/2024 [place] [address] Maite Malloy MD [facility] OBSTETRICS [place] [address] documented as of this encounter Visit Diagnoses Diagnosis Borderline personality disorder Substance use disorder documented in this encounter Care Teams Disaster Response Director Relationship Specialty Start Date End Date Valencia Adhikari APRN [address] [place] [address] PCP - General 04/21/14 07/04/23 documented as of this encounter
--- OUTSIDE RECORDS SUMMARY | 2024-01-23 17:54 | XMS_ITS | Encounter Summary ---
Author Organization [facility] Address [facility] [place] [address] Care Team Providers Care Freight Team Associate Name Role Phone Valencia Adhikari APRN Primary Care Provider [phone] Encounter Details Date Type Department Care Team (Latest Contact Info) Description 08/18/2021 11:00 AM EDT TH Visit (TeleHealth) Psychiatry [place] [phone] Lisa Dickens, PhD [facility] [place] [address] Unspecified mood (affective) disorder; Borderline personality disorder [...] EDT INDIVIDUAL THERAPY PROGRESS NOTE CPT CODE 87919 LOCATION: Telehealth visit. Andree SinghTamara gave permission for and was seen for today's appointment with a Telehealth visit. During this visit she was located in her apartment in [place], [place]. Andree Hummel is aware that for any urgent matter she can can contact her regional mental health crisis services. For patients located in [place]: www.Gogo or text/call . Forpatients located in [place]: [email or web address].[facility]/services/[email or web address]. To reach their [facility] mental health clinician or the outpatient Department of Psychiatry clinics,patient can call [phone]. SESSION DURATION: 40 minutes ATTENDEES: Patient PRIMARY COMPLAINT/DIAGNOSIS: Borderline Personality Disorder; Unspecified Mood Disorder; R/O PTSD TREATMENT MODALITY: DBT PATIENT REPORT OF CURRENT FUNCTIONING/CHANGES: Patient reported: -has an appt at [facility], friend Caroline is going with her, [...] her apprehension about her upcoming trip to [place] and being around her mother's family for [...] 01/24/2024 1:00 PM EDT Appointment Radiology at [place] [phone] Simin Bay MD [facility] [place] [address] 01/24/2024 2:00 PM EDT Routine Obstetrics [place] [phone] Taty Ramos MD [facility] MATERNAL & [place] [address] 02/07/2024 9:00 AM EDT Appointment Radiology at [address]1000 Simin Bay MD [facility] [place] [address] 02/07/2024 10:15 AM EDT Routine Obstetrics and Gynecology at [address]1000 Linda Diaz MD [facility] [place] [address] 03/12/2024 10:45 AM EST Office Visit Endocrinology at [address]1000 James Barth DO [facility] [place] [address] 05/23/2024 [place] [address] Maite Malloy MD [facility] [place] [address] documented as of this encounter Visit Diagnoses Diagnosis Unspecified mood (affective) disorder Borderline personality disorder documented in this encounter Care Teams Freight Team Associate Relationship Specialty Start Date End Date Valencia Adhikari APRN [address] [place] [address] PCP - General 04/21/14 07/04/23 documented as of this encounter
--- OUTSIDE RECORDS SUMMARY | 2024-01-23 17:54 | XMS_ITS | Encounter Summary ---
Author Organization [facility] Address [facility] [address] [address] Care Team Providers Care Bleacher [employer] Name Role Phone Valencia Adhikari APRN Primary Care Provider [phone] Encounter Details Date Type Department Care Team (Latest Contact Info) Description 11/17/2021 8:00 AM EDT TH Visit (TeleHealth) Psychiatry [place] [phone] Lisa Dickens, PhD [facility] [place] [address] Unspecified mood (affective) disorder; Borderline personality disorder [...] EDT INDIVIDUAL THERAPY PROGRESS NOTE CPT CODES 58458, 87491, 48710 LOCATION: Telehealth. Andree Hummel gave permission for and was seen for today's appointment with a Telehealth visit. During this visit she was located at her home in [place], [place]. Andree WallisYasir is aware that for any urgent matter she can call [phone]. 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 At that [...] emergencies, call 988 from anywhere in the [facility]. State specific information for [place] and [place] crisis services are as follows and should be used to access local resources: [facility] Mental Health Crises Services [facility] Crisis Line text or call Visit www.FanTrail for further information [place] Call your local [facility] crisis line at: [place]: [facility] [phone] [place]: [employer] [facility] [phone] [place]: [facility] [phone] [place]: [facility] [phone] [place]: [facility] [phone] [place] doris [place]: [facility] Counseling and Support [phone] [place]: [facility] [phone] on weekdays 8AM-4:30PM and [phone] on nights and weekends [place]: Jennifer Alvarez [place]: [facility] [phone] [place]: [facility] [phone] [place]: [facility], [place]: [facility] [place]: [facility] or Text [place] to [phone] For further information for [place] residents: https://mentalhealth.[place].gov/services/emergency-services/oqg-nmc-ldwe National Suicide Prevention Hotline: For patients cared for in the Department of Psychiatry, you can reach your mental health clinician at [phone]. Lisa Dickens, PhD documented in this encounter Plan of Treatment Upcoming Encounters Date Type Department Care Team (Late st Contact Info) Description 01/24/2024 1:00 PM EDT Appointment Radiology at [address]1000 Simin Bay MD [facility] DR OBSTETRICS [place] [address] 01/24/2024 2:00 PM EDT Routine Obstetrics and Gynecology at [address]1000 Taty Ramos MD [facility] DR MATERNAL [place] [address] 02/07/2024 9:00 AM EDT Appointment Radiology at [place] [phone] Simin Bay MD [facility] DR OBSTETRICS [place] [address] 02/07/2024 10:15 AM EDT Routine Obstetrics and Gynecology at [place] [phone] Linda Diaz MD [facility] [place] [address] 03/12/2024 10:45 AM EST Office [place] [address] James Barth DO [facility] [place] [address] 05/23/2024 Hospital [place] [address] Maite Malloy MD [facility] OBSTETRICS [place] [address] documented as of this encounter Visit Diagnoses Diagnosis Unspecified mood (affective) disorder Borderline personality disorder documented in this encounter Care Teams Bleacher [employer] Relationship Specialty Start Date End Date Valencia Adhikari APRN [address] [place] [address] PCP - General 04/21/14 07/04/23 documented as of this encounter
--- OUTSIDE RECORDS SUMMARY | 2024-01-23 17:54 | XMS_ITS | Encounter Summary ---
Author Organization [facility] Address [facility] [place] [address] Care Team Providers Care Collar Worker Name Role Phone Valencia Adhikari APRN Primary Care Provider [phone] Encounter Details Date Type Department Care Team (Latest Contact Info) Description 08/04/2021 11:00 AM EDT TH Visit (TeleHealth) Psychiatry [place] [address] Lisa Dickens, PhD [facility] [place] [address] Unspecified mood (affective) disorder; Borderline personality disorder [...] EDT INDIVIDUAL THERAPY PROGRESS NOTE CPT CODE 86205 LOCATION: Telehealth visit. Andree SinghTamara gave permission for and was seen for today's appointment with a Telehealth visit. During this visit she was located in her apartment in [place], [place]. Andree Hummel is aware that for any urgent matter she can can contact her regional mental health crisis services. For patients located in [place]: www.Crestock or text/call . Forpatients located in [place]: [email or web address]/emergency-services/[email or web address]-mwq-rsiw. To reach their [facility] [place] mental health clinician or the outpatient Department of Psychiatry clinics,patient can call [phone]. SESSION DURATION: 40 minutes ATTENDEES: Patient PRIMARY COMPLAINT/DIAGNOSIS: Borderline Personality Disorder; Unspecified Mood Disorder; R/O PTSD TREATMENT MODALITY: DBT PATIENT REPORT OF CURRENT FUNCTIONING/CHANGES: Patient reported: -woke up today and has been crying all day, doesn't know why and doesn't like it -under immense stress, car is in shop and can't go to appt at [facility], hasn't been able to call a heat and frost insulator helper yet due to fears about how much [...] 01/24/2024 1:00 PM EDT [place] [address] Simin Bay MD [facility] DR [place]STET[place] [address] 01/24/2024 2:00 PM EDT Routine Obstetrics [place] [address] Taty Ramos MD [facility] MATERNAL & [place] [address] 02/07/2024 9:00 AM EDT Appointment Radiology at [place] [address] Simin Bay MD [facility] [place] [address] 02/07/2024 10:15 AM EDT Routine Obstetrics and Gynecology at [address]1000 Linda Diaz MD [facility] [place] [address] 03/12/2024 10:45 AM EST Office Visit Endocrinology at [address]1000 James Barth DO [facility] [place] [address] 05/23/2024 Hospital [place] [address] Maite Malloy MD [facility] [place]ST[place] [address] documented as of this encounter Visit Diagnoses Diagnosis Unspecified mood (affective) disorder Borderline personality disorder documented in this encounter Care Teams Collar Worker Relationship Specialty Start Date End Date Valencia Adhikari APRN [address] [place] [address] PCP - General 04/21/14 07/04/23 documented as of this encounter
--- OUTSIDE RECORDS SUMMARY | 2024-01-23 17:54 | XMS_ITS | Encounter Summary ---
[place] [address] Care Team Providers Care Business Solutions Consultant Name Role Phone Richard Rasheed MD Primary Care Provider [phone] Reason for Referral * Psychiatric (Routine) - Closed Specialty Diagnoses / Procedures Referred By Contwillow t Referred To Contact Psychiatry Diagnoses Bipolar affective disorder, current episode mixed, current episode severity unspecified Richard Rasheed MD [address] [place] [address] [facility] [place] [address] Referral ID Status Reason Start Date Expiration Date V isits Requested Visits Authorized [id number] Closed Consult, Test & Treat PCP Updated and/or Approved 07/05/2023 07/04/2024 6 6 Encounter Details Date Type Department Care Team (Latest Contact Info) Description 07/05/2023 Transcribe Orders eDH Incoming Referrals [phone] Richard Rasheed MD [address] [place] [address] Bipolar affective disorder, current [...] 01/24/2024 1:00 PM EDT Appointment Radiology at [place] [address] Walt Bay MD [facility] DR OBSTETRICS [place] [address] 01/24/2024 2:00 PM EDT Routine Obstetrics and Gynecology at [address]1000 Taty Ramos MD [facility] MATERNAL [place] [address] 02/07/2024 9:00 AM EDT Appointment Radiology at [place] [address] Walt Bay MD [facility] DR OBSTETRICS [place] [address] 02/07/2024 10:15 AM EDT Routine Obstetrics and Gynecology at [place] [phone] Linda Diaz MD [facility] [place] [address] 03/12/2024 10:45 AM EST Office Visit Endocrinology at [place] [phone] James Barth DO [facility] [place] [address] 05/23/2024 Hospital [place] [address] Maite Malloy MD [facility] OBSTETRICS [place] [address] Scheduled Referrals Name Type Priority Associated Diagnoses Orde r Schedule Referral to Adult Psychiatry Outpatient Referral Routine Bipolar affective disorder, current episode mixed, current episode severity unspecified Ordered: 07/05/2023 documented as of this encounter Visit Diagnoses Diagnosis Bipolar affective disorder, current episode mixed, current episode severity unspecified documented in this encounter Care Teams Business Solutions Consultant Relationship Specialty Start Date End Date Richard Rasheed MD [address] [place] [address] PCP - General Family Medicine 07/05/23 documented as of this encounter
--- OUTSIDE RECORDS SUMMARY | 2024-01-23 17:54 | XMS_ITS | Encounter Summary ---
Author Organization [facility], [facility] Address [facility] [place] [address] Care Team Providers Care Benzene Washer Operator Name Role Phone Richard Rasheed MD Primary Care Provider [phone] Encounter Details Date Type Department Care Team [...] from your doctor or pharmacy? Never 10/12/2023 [facility] Utilities Answer Date Recorded In the past 12 months has e [employer], gas, oil, or water [employer] threatened to shut off services in your [...] were you homeless or living in a correction (including now)? Yes 10/12/2023 Estimated Date of [...] 01/24/2024 1:00 PM EDT [place] [address] Walt Bay MD [facility] OBSTETRICS AND GYNECOLOGY [place], [place] [address] 01/24/2024 2:00 PM EDT Routine Obstetrics [place] [address] Taty Ramos MD [facility] MAT[place]NAL & [place] [address] 02/07/2024 9:00 AM EDT Appointment Radiology at [address]1000 Walt Bay MD [facility] DR OBSTET[place] [address] 02/07/2024 10:15 AM EDT Routine Obstetrics and Gynecology at [address] Linda Diaz MD [facility] [place] [address] 03/12/2024 10:45 AM EST Office Visit Endocrinology at [address] James Barth DO [facility] [place] [address] 05/23/2024 Hospital [place] [address] Maite Malloy MD [facility] DR OBST[place] [address] documented as of this encounter Visit Diagnoses Not on filedocumented in this encounter Care Teams Benzene Washer Operator Relationship Specialty Start Date End Date Richard Rasheed MD [address] [place] [address] PCP - General Family Medicine 07/05/23 documented as of this encounter
--- OUTSIDE RECORDS SUMMARY | 2024-01-23 17:54 | XMS_ITS | Encounter Summary ---
Author Organization [facility] Address [facility] [place] [address] Care Team Providers Care Cooking Chef Name Role Phone Valencia Adhikari APRN Primary Care Provider [phone] Encounter Details Date Type Department Care Team (Latest Contact Info) Description 06/06/2021 3:00 PM EST TH Visit (TeleHealth) Psychiatry [place] [phone] Lisa Dickens, PhD [facility] [place] [address] Borderline personality disorder; Unspecified mood (affective) disorder [...] EST INDIVIDUAL THERAPY PROGRESS NOTE CPT CODE 86425 LOCATION: Telehealth visit. Andree Artislliams gave permission for and was seen for today's appointment with a Telehealth visit. During this visit she was located in her apartment in [place], [place]. Andree Hummel is aware that for any urgent matter she can can contact her regional mental health crisis services. For patients located in [place]: www.[employer] or text/call . Forpatients located in [place]: [email or web address]. To reach their [facility] mental health clinician or the outpatient Department of Psychiatry clinics,patient can call [phone]. SESSION DURATION: 17 minutes ATTENDEES: Patient PRIMARY [...] than 20 minutes as she had to berry picker her son CENTRAL THEME OF SESSION: [...] 01/24/2024 1:00 PM EDT Appointment Radiology at [address]1000 Simin Bay MD [facility] OBSTET[place] [address] 01/24/2024 2:00 PM EDT Routine Obstetrics and Gynecology at [address]1000 Taty Ramos MD [facility] MATERNAL & [place] [address] 02/07/2024 9:00 AM EDT Appointment Radiology at [address]1000 Simin Bay MD [facility] [place] [address] 02/07/2024 10:15 AM EDT Routine Obstetrics and Gynecology at [place] [phone] Linda Diaz MD [facility] [place] [address] 03/12/2024 10:45 AM EST Office [place] [phone] James Barth DO [facility] [address] 05/23/2024 Hospital [place] [address] Maite Malloy MD [facility] [place] [address] documented as of this encounter Visit Diagnoses Diagnosis Borderline personality disorder Unspecified mood (affective) disorder documented in this encounter Care Teams Cooking Chef Relationship Specialty Start Date End Date Valencia Adhikari APRN [address] [place] [address] PCP - General 04/21/14 07/04/23 documented as of this encounter
--- OUTSIDE RECORDS SUMMARY | 2024-01-23 17:54 | XMS_ITS | Encounter Summary ---
Author Organization Counts Include [facility] Address [facility] [place] [address] Care Team Providers Care Machine Lead Burner Name Role Phone Onofre Valencia Barton APRN Primary Care Provider [phone] Encounter Details Date Type Department Care Team (Late st Contact Info) Description 05/02/2021 Telephone Psychiatry [place] [address] Mary Bateman Social History Tobacco [...] 01/24/2024 1:00 PM EDT App[place]ment [place] [address] Walt Bay MD [facility] DR OBSTETRICS [place] [address] 01/24/2024 2:00 PM EDT Routine Obstetrics [place] [address] Taty Ramos MD [facility] MATERNAL & [place] [address] 02/07/2024 9:00 AM EDT Appointment Radiology at [address]1000 Walt Bay MD [facility] DR OBSTETRICS [place] [address] 02/07/2024 10:15 AM EDT Routine Obstetrics and Gynecology at [address] Linda Daiz MD [facility] MATERNAL [place] [address] 03/12/2024 10:45 AM EST Office Visit Endocrinology at [address]1000 James Barth DO [facility] [place] [address] 05/23/2024 Hospital [place] [address] Maite Malloy MD [facility] DR OBSTETRICS [place] [address] documented as of this encounter Visit Diagnoses Not on filedocumented in this encounter Care Teams Machine Lead Burner Relationship Specialty Start Date End Date Valencia Adhikari APRN [address] [place] [address] PCP - General 04/21/14 07/04/23 documented as of this encounter
--- OUTSIDE RECORDS SUMMARY | 2024-01-23 17:54 | XMS_ITS | Encounter Summary ---
[place] [address] Care Team Providers Care Mobile Homes Repairer Name Role Phone Valencia Adhikari APRN Primary Care Provider [phone] Reason for Referral * Consultation (Routine) - Closed Specialty Diagnoses / Procedures Referred By Lamont riggins Referred To Contact Gastroenterology Diagnoses Irregular bowel habits Irregular bowel habits Valencia Adhikari APRN [address] [place] [address] [facility] [place] [address] Referral ID Status Reason Start Date Expiration Date V isits Requested Visits Authorized [id number] Closed Consult, Test & Treat 06/27/2021 06/27/2022 1 1 Encounter Details Date Type Department Care Team (Latest Contact Info) Description 06/27/2021 Transcribe Orders eDH Incoming Referrals [phone] Valencia Adhikari APRN [address] [place] [address] Irregular bowel habits Social History [...] 01/24/2024 1:00 PM EDT Appointment Radiology at [place] [address] Walt Bay MD [facility] OBSTET[place]ICS [place] [address] 01/24/2024 2:00 PM EDT Routine Obstetrics and Gynecology at [address]1000 Taty Ramos MD [facility] MATERNAL & [place] [address] 02/07/2024 9:00 AM EDT Appointment Radiology at [address]1000 Walt Bay MD [facility] DR OBSTETRICS [place] [address] 02/07/2024 10:15 AM EDT Routine Obstetrics and Gynecology at [place] [phone] Linda Diaz MD [facility] [place] [address] 03/12/2024 10:45 AM EST Office [place] [address] James Barth DO [facility] [place] [address] 05/23/2024 Hospital [place] [address] Maite Malloy MD [facility] DR OBSTETRICS [place] [address] Scheduled Referrals Name Type Priority Associated Diagnoses Order Schedule Referral to Gastroenterology Outpatient Referral Routine Irregular bowel habits Ordered: 06/27/2021 documented as of this encounter Visit Diagnoses Diagnosis Irregular bowel habits Other specified disorder of intestines documented in this encounter Care Teams Mobile Homes Repairer Relationship Specialty Start Date End Date Valencia Adhikari APRN [address] [place] [address] PCP - General 04/21/14 07/04/23 documented as of this encounter
--- OUTSIDE RECORDS SUMMARY | 2024-01-23 17:54 | XMS_ITS | Encounter Summary ---
Author Organization Formerly [facility] [place] [address] Care Team Providers Care Special Education Itinerant Teacher Name Role Phone OnofreMarilynValencia H BERLIN Primary Care Provider [phone] Encounter Details Date Type Department Care Team (Late st Contact Info) Description 12/13/2021 Telephone [place] [address] Peg Cast Social History Tobacco [...] 01/24/2024 1:00 PM EDT [place] [address] Walt Bay MD [facility] DR [place] [address] 01/24/2024 2:00 PM EDT Routine Obstetrics and Gynecology at [address]1000 Taty Ramos MD [facility] MATERNAL & [place] [address] 02/07/2024 9:00 AM EDT Appointment Radiology at [place] [address] Walt Bay MD [facility] [place] [address] 02/07/2024 10:15 AM EDT Routine Obstetrics and Gynecology at [address]1000 Linda Diaz MD [facility] [place] [address] 03/12/2024 10:45 AM EST Office Visit Endocrinology at [place] [address] James Barth DO [facility] [address] 05/23/2024 Hospital [place] [address] Maite Malloy MD [facility] DR [place]STET[place] [address] documented as of this encounter Visit Diagnoses Not on filedocumented in this encounter Care Teams Special Education Itinerant Teacher Relationship Specialty Start Date End Date Valencia Adhikari APRN [address] [place] [address] PCP - General 04/21/14 07/04/23 documented as of this encounter
--- OUTSIDE RECORDS SUMMARY | 2024-01-23 17:54 | XMS_ITS | Encounter Summary ---
Author Organization [facility] Address [facility] [place] [address] Care Team Providers Care Patient Services Specialist Name Role Phone Valencia Adhikari APRN Primary Care Provider [phone] Encounter Details Date Type Department Care Team (Latest Contact Info) Description 05/18/2021 2:30 PM EST TH Visit (TeleHealth) Psychiatry [place] [address] Crispin Fuller MD [facility] [place] [address] Borderline personality disorder Social History Tobacco Use [...] Attendee(s): Patient This patient was seen with supervisor computer operations Dr. Awad. See their note for confirmatory and/or revisionarydocumentation. Andree Hummel gave permission for and was seen for today's appointment with a Telehealth visit. During this visit they were located in [place]. Andree Hummel is aware that for any urgent matter they can call: If you are located in [place], please call your local community crisis line at [place]: [facility] [phone],[place]: [facility] [phone], or text [place] to [phone] For further information for [place] residents: [email or web address] To reach your mental health clinician or the outpatient Department of Psychiatry clinics: [phone] Chief Complaint: Its been a lot History [...] cats and a dog. 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 Vitals (24hr Range): No data found. Musculoskeletal System: normal gait and balance, ambulates independently and no atrophy Mental Status Exam: ?? Appearance: age appropriate and casually dressed, purple hair ?? Behavior: cooperative with the interview and calm ?? Speech: normal pitch, normal volume, normal rate and normal rhythm ?? Language: fluent in telugu ?? Mood: a little better ?? Affect: [...] PHYSICIAN INVOLVEMENT Location: Adult Psychiatry Medication Clinic, [facility] 5D Attending Physician: Jessica Awad [...] 01/24/2024 1:00 PM EDT Appointment Radiology at [place] [phone] Walt Bay MD [facility] DR OBSTETRICS [place] [address] 01/24/2024 2:00 PM EDT Routine Obstetrics and Gynecology at [place] [phone] Taty Ramos MD [facility] MATERNAL & [place] [address] 02/07/2024 9:00 AM EDT [place] [address] Walt Bay MD [facility] DR OBSTETRICS [place] [address] 02/07/2024 10:15 AM EDT Routine Obstetrics [place] [address] Linda Diaz MD [facility] DR [place]ERNAL [place] [address] 03/12/2024 10:45 AM EST Office [place] [address] James Barth DO [facility] [place] [address] 05/23/2024 Hospital [place] [address] Maite Malloy MD [facility] OBSTETRICS [place] [address] documented as of this encounter Visit Diagnoses Diagnosis Borderline personality disorder documented in this encounter Care Teams Patient Services Specialist Relationship Specialty Start Date End Date Valencia Adhikari APRN [address] [place] [address] PCP - General 04/21/14 07/04/23 documented as of this encounter
--- OUTSIDE RECORDS SUMMARY | 2024-01-23 17:54 | XMS_ITS | Encounter Summary ---
Author Organization [facility] Address [facility] [place] [address] Care Team Providers Care Cardiac Cath Lab Radiology Technologist Name Role Phone Richard Rasheed MD Primary Care Provider [phone] Encounter Details Date Type Department Care Team (Late st Contact Info) Description 10/12/2023 10:20 AM EDT Initial Obstetrics [place] [address] Tye Gamble MD [facility] DR OBSTETRICS & [place] [address] [place]: 5w1d Social History Tobacco Use Types [...] from your doctor or pharmacy? Never 10/12/2023 [facility] Utilities Answer Date Recorded In the past 12 months has e [employer], gas, oil, or water [employer] threatened to shut off services in your [...] time in the past 12 m [facility], were you homeless or living in [...] Result date Tests and Procedures Follow-ups 08/04/2020 (Order#[id number]) Mortgage Loan Underwriter Cytology Final Report *Pap Smear: NILM ATG ARCHITECT CYTOLOGY FINAL REPORT: View Details in Report [...] MONITORING, SETUP performed by JUAN ESPARZA at [facility] MAIN OR PRO THYROIDECTOMY, NYDIA, LTD NECK SURG 03/22/2011 THYROIDECTOMY, FOR MALIGNANCY, LIMITED NECK DISSECTION performed by JUAN ESPARZA at [facility] MAIN OR TONSILLECTOMY 2010 UPPER GASTROINTESTINAL [...] a external lab requisition was sent to [facility]. Will add to beta list given bleeding present a few days ago (now resolved). Plan to schedule ultrasound in approximately 1-2 weeks pending beta hcg trend. Bleeding and ectopic precautions reviewed - she is aware to present more emergently to care with increased vaginal bleeding or abdominal pain. This has been complicated by: History of delivery @31w ([facility] 2013), @21w (at home). Consider cervical [...] 01/24/2024 1:00 PM EDT [place] [address] Walt Bay MD [facility] DR OBSTETRICS [place] [address] 01/24/2024 2:00 PM EDT Routine Obstetrics [place] [phone] Taty Ramos MD [facility] DR MATERNAL & [place] [address] 02/07/2024 9:00 AM EDT Appointment Radiology at [place] [address] Walt Bay MD [facility] DR OBSTETRICS [place] [address] 02/07/2024 10:15 AM EDT Routine Obstetrics and Gynecology at [address]1000 Linda Diaz MD [facility] [place] [address] 03/12/2024 10:45 AM EST Office Visit Endocrinology at [address]1000 James Barth DO [facility] [place] [address] 05/23/2024 Hospital Encounter Birthing [place] [phone] Maite Malloy MD [facility] DR OBSTETRICS [place] [address] documented as of this encounter Procedures Procedure Name Priority Date/Time Associated Diagnosis Comments GC/CHLAMYDIA Routine 10/12/2023 10:20 AM EDT care in first trimester URINE CULTURE Routine 10/12/2023 10:20 AM EDT care in first trimester POCT URINE Routine 10/12/2023 care in first trimester documented in this encounter Results * (ABNORMAL) Urine culture Clean Catch Urine (10/12/2023 10:20 AM EDT) Pathologist [facility] Urine Culture 10,000-49,000 cfu/ml mixed mucosal ike Note: Culture shows multiple bacterial species suggesting mucosal contamination. (A) [facility] Clean Catch Urine 10/12/2023 10:20 AM EDT 10/12/2023 11:53 AM EDT Narrative Resulting Agency Comment Spec In Lab Paul Mendez MD MICROBIOLOGY - GENE RAL ORDERABLES Performing Organization Address [place]/[facility]/ZIP Co de Phone Number [facility] [place] [address] * GC/Chlamydia Vaginal (10/12/2023 10:20 AM EDT) [facility] GC Gene Amp Negative Negative [facility] Comment: Eye specimens are not an FDA-cleared source for this testing. The performance of this assay with eye specimens has been validated in-house. GC Source Vaginal [facility] Chlamydia Gene Amp Negative Negative [facility] Comment: Eye specimens are not an FDA-cleared source for this testing. The performance of this assay with eye specimens has been validated in-house. Chlm Source Vaginal [facility] Vaginal 10/12/2023 10:2 0 AM EDT 10/12/2023 11:54 AM EDT Narrative Resulting Agency Comment Spec In Lab Paul Mendez MD MICROBIOLOGY - GENE RAL ORDERABLES Performing Organization Address City/[facility]/ZIP Co de Phone Number [facility] [place] [address] * POCT urine (10/12/2023) Pathologist [facility] [...] disorder documented in this encounter Care Teams Cardiac Cath Lab Radiology Technologist Relationship Specialty Start Date End Date Richard Rasheed MD [address] [place] [address] PCP - General Family Medicine 07/05/23 documented as of this encounter
--- OUTSIDE RECORDS SUMMARY | 2024-01-23 17:54 | XMS_ITS | Encounter Summary ---
Author Organization [facility] Address [facility] [place] [address] Care Team Providers Care First Beater Name Role Phone Valencia Adhikari APRN Primary Care Provider [phone] Encounter Details Date Type Department Care Team (Latest Contact Info) Description 09/08/2021 11:00 AM EDT TH Visit (TeleHealth) Psychiatry and [place] [phone] Lisa Dickens, PhD [facility] [place] [address] Unspecified mood (affective) disorder; Borderline personality disorder [...] EDT INDIVIDUAL THERAPY PROGRESS NOTE CPT CODE 97688 LOCATION: Telehealth visit. Andree SinghTamara gave permission for and was seen for today's appointment with a Telehealth visit. During this visit she was located in her apartment in [place], [place]. Andree Hummel is aware that for any urgent matter she can can contact her regional mental health crisis services. For patients located in [place]: www.[email or web address] or text/call . Forpatients located in [place]: [email or web address]/syn-[email or web address]-galo. To reach their [facility] mental health clinician or the outpatient Department of Psychiatry clinics,patient can call [phone]. SESSION DURATION: 25 minutes ATTENDEES: Patient PRIMARY [...] 01/24/2024 1:00 PM EDT Appointment Radiology at [place] [phone] Simin Bay MD [facility] [address] [place] [address] 01/24/2024 2:00 PM EDT Routine Obstetrics and Gynecology at [place] [phone] Taty Ramos MD [facility] DR MATERNAL & [place] [address] 02/07/2024 9:00 AM EDT Appointment [place] [address] Simin Bay MD [facility] DR OBSTETRICS [place] [address] 02/07/2024 10:15 AM EDT Routine Obstetrics and Gynecology at [place] [phone] Linda Diaz MD [facility] MATERNAL [place] [address] 03/12/2024 10:45 AM EST Office Visit Endocrinology at [address]1000 James Barth DO [facility] [place] [address] 05/23/2024 Hospital Encounter Birthing [place] [phone] Maite Malloy MD [facility] DR OBSTETRICS [place] [address] documented as of this encounter Visit Diagnoses Diagnosis Unspecified mood (affective) disorder Borderline personality disorder documented in this encounter Care Teams First Beater Relationship Specialty Start Date End Date Valencia Adhikari APRN [address] [place] [address] PCP - General 04/21/14 07/04/23 documented as of this encounter
--- OUTSIDE RECORDS SUMMARY | 2024-01-23 17:54 | XMS_ITS | Encounter Summary ---
Author Organization [facility] Address [facility] [place] [address] Care Team Providers Care Municipal Firefighter Name Role Phone Valencia Adhikari APRN Primary Care Provider [phone] [phone] Reason for Visit * Consultation (Routine) - Closed Specialty Diagnoses / Procedures Referred By Lamont riggins Referred To Contact Gastroenterology Diagnoses Irregular bowel habits Irregular bowel habits Valencia Adhikari APRN [address] [place] [address] [facility] Gastro 4[address] [place] [address] Referral ID Status Reason Start Date Expiration Date V isits Requested Visits Authorized [id number] Closed Consult, Test & Treat 06/27/2021 06/27/2022 1 1 Encounter Details Date Type Department Care Team (Latest Contact Info) Description 07/14/2021 11:00 AM EDT TH Visit (TeleHealth) [place] [address] Margarita Hector APRN [facility] [place] [address] Vitamin D deficiency; Iron deficiency [...] DIAGNOSTIC C. Difficile Screen Stool Culture Screen ([facility]/P/APD/[place]) Gliadin (Deamidated) Antibodies Calprotectin, Stool Elastase, Stool *Lab orders have been faxed to [facility]* Please call the GI department to schedule the investigations if you do not hear from us within 1-2 weeks: [phone]. Endoscopy Scheduling: please call [phone] to schedule the procedures we discussed during [...] Hector APRN Department of Gastroenterology and Hepatology [facility] Here is some information on the [...] disease, or Ulcerative colitis. Also if the regional business manager sees any polyps, they will be removed [...] Maite Flores APRN + Margarita Hector APRN [facility] What are functional [...] what is the impact? 15-20% of general [place] population has IBS or FD or both 2nd most common cause for lost work days (after common cold) in [place] Estimated $30 billion dollar cost to [place] economy per year These disorders can have [...] with immediate onset of symptoms after infection); skilled nursing symptoms are expected in most patients however [...] to you primary care provider and/or local regional business manager and share this document. Treatment of functional [...] - this approach benefits most patients OTC (mwur-dyc-tilpohq) medications can be used for ongoing bothersome symptoms as listed below Your provider (PCP or local Gastroenterology provider or [facility] Gastroenterology provider) may decide to use [...] All-Bran psyllium buds, Metamucil, Konsyl, bulk psyllium ([employer]ot App Store and WorldMate stores) Specifically we recommend starting Metamucil or [...] but convincing medical evidence is still lacking Bysb-rpv-shxnyfo supplements including probiotics are not typically evaluated [...] to decrease antibiotic-associated diarrhea and antibiotic-related infections Bgqq-hwe-Sfpxjvj Medications for Functional Gut Disorders Based on [...] a stool softener that is safe for intermodal owner operator truck driver usage (no risk of dependency) andthe dosage [...] (GERD) Often a combination of anti-nausea medications (mghn-isd-ewvvoay or prescription) works better thanhigh doses of [...] for misuse/misinterpretation of this information Patient Resources [place] [employer] https://www.gastro.org/practice-guidance/jw-daratmm-dxyiha/ topic/mobxdsdpa-pdrcd-vlcxbzqf-ibs Badgut.org https://badgut.org/information-centre/a-n-bxzyrbmzm-topics/ibs/ AboutIBS.org https://www.aboutibs.org/ Uptodate.com https://www.uptodate.com/contents/abjrwcbge-rtuyi-ckxftfyt-pgtyhq-nwv-jixinr documented in this encounter Progress Notes * [...] been inconsistent for past decade -recently saw [place]minster rug setter: low IgA when checking for celiac -celiac in uncle -sister and her have shi's -gluten free helped sister's symptoms -single mom: gluten free is challenging financially -irregular bowel movements: -diagnosed with IBS at 17: EGD/colonoscopy (polyps in colon?) BM: sometimes 5-6/day for a week, then normal daily [place]: variable consistency but usually 5-6 Endorses steatorrhea, [...] stressors with ex boyfriend and son 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 Nerves, Trunk Or Head ([id number]) (03/22/2011); Knox tooth extraction; Upper gastrointestinal endoscopy; Colonoscopy; and [...] anxiety, depression, s/p thyroidectomy. Pt reports previous EGD/[place] at [facility] in 2007 normal except for [...] to rule out Celiac/IBD/microscopic colitis. Labs to [facility], including gliadin antibodies. We discussed etiology and management for IBS-D vs celiac vs IBD: patient prefers non-pharmacologic management. Diagnostics: -EGD/colonoscopy MAC and biopsies -labs (including low IgA celiac testing): [facility], pt aware she may need to get some testing done at [facility] if not available at [facility] -consider referral to filler mixer at follow up Therapeutics: -Begin Metamucil (make [...] LABS NEGATIVE ONLY -consider trial FODMAP diet/seeing filler mixer after EGD/colo complete -can consider increasing mirtazapine [...] EGD/colo complete The patient was located in [place] at the time of their visit. TIME SPENT WITH PATIENT Time spent reviewing records prior to this encounter on day of appointment: 5 minutes Time spent during encounter with patient including counselin minutes Time spent documenting encounter after office visit: 10 minutes Margarita Hector APRN [facility] [place] [address] documented in this encounter Plan of Treatment Upcoming Encounters Date Type Department Care Team (Late st Contact Info) Description 01/24/2024 1:00 PM EDT Appointment [place] [address] Walt Bay MD [facility] OBSTETRICS [place] [address] 01/24/2024 2:00 PM EDT Routine Obstetrics and Gynecology at [place] [phone] Taty Ramos MD [facility] MATERNAL & [place] [address] 02/07/2024 9:00 AM EDT Appointment [place] [address] Walt Bay MD [facility] OBSTETRICS [place] [address] 02/07/2024 10:15 AM EDT Routine Obstetrics and Gynecology at [place] [phone] Linda Diaz MD [facility] [place] [address] 03/12/2024 10:45 AM EST Office Visit Endocrinology at [place] [phone] James Barth DO [facility] [place] [address] 05/23/2024 Hospital [place] [address] Maite Malloy MD [facility] OBSTETRICS [place] [address] documented as of this encounter Visit Diagnoses [...] pain documented in this encounter Care Teams Municipal Firefighter Relationship Specialty Start Date End Date Valencia Adhikari APRN [address] [place] [address] PCP - General 04/21/14 07/04/23 documented as of this encounter
--- OUTSIDE RECORDS SUMMARY | 2024-01-23 17:55 | XMS_ITS | Encounter Summary ---
Author Organization [facility] [place] [address] Care Team Providers Care Insurance Agent Name Role Phone OnofreMarilynValencia Oralia SLADE Primary Care Provider [phone] [phone] Reason for Visit * Reason Onset Date Comments Medication Refill 10/26/2018 Encounter Details Date Type Department Care Team (Late st Contact Info) Description 10/26/2018 Ref[place] [address] Alicia Oviedo APRN [facility] [place] [address] Left shoulder pain, unspecified chronicity Social History [...] 01/24/2024 1:00 PM EDT [place] [address] Walt Bay MD [facility] DR OBSTETRICS [place] [address] 01/24/2024 2:00 PM EDT Routine Obstetrics and Gynecology at [address] Taty Ramos MD [facility] DR MATERNAL & [place] [address] 02/07/2024 9:00 AM EDT Appointment Radiology at [place] [address] Walt Bay MD [facility] DR OBSTETRICS AND [place] [address] 02/07/2024 10:15 AM EDT Routine Obstetrics and Gynecology at [address] Linda Diaz MD [facility] DR MATERNAL [place] [address] 03/12/2024 10:45 AM EST Office Visit Endocrinology at [place] [address] James Barth DO [facility] DR ENDOCRINOLOGY [place] [address] 05/23/2024 [place] [address] Maite Malloy MD [facility] DR OBSTETRICS [place] [address] documented as of this encounter Visit Diagnoses Diagnosis Left shoulder pain, unspecified chronicity documented in this encounter Care Teams Insurance Agent Relationship Specialty Start Date End Date Valencia Adhikari APRN [address] [place] [address] PCP - General 04/21/14 07/04/23 documented as of this encounter
--- OUTSIDE RECORDS SUMMARY | 2024-01-23 17:55 | XMS_ITS | Encounter Summary ---
Author Organization [facility] Address [facility] [place] [address] Care Team Providers Care Test Worker Name Role Phone Valencia Adhikari APRN Primary Care Provider +1 [phone] Encounter Details Date Type Department Care Team (Latest Contact Info) Description 08/19/2020 1:00 PM EDT TH Visit (TeleHealth) Psychiatry [place] [address] Lisa Dickens, PhD [facility] [place] [address] Borderline personality disorder; Unspecified mood (affective) disorder [...] EDT INDIVIDUAL THERAPY PROGRESS NOTE CPT CODE 90712 LOCATION: Telehealth. Toshaaaron Artislliams gave permission for and was seen for today's appointment with a Telehealth visit. During this visit she was located in her apartment in [place], [place]. Andree UnderwoodWilliams is aware that for any urgent matter she can call [phone]. SESSION DURATION: 50 minutes ATTENDEES: Patient PRIMARY [...] 01/24/2024 1:00 PM EDT Appointment Radiology at [place] [phone] Simin Bay MD [facility] DR OBSTETRICS [place] [address] 01/24/2024 2:00 PM EDT Routine Obstetrics and Gynecology at [place] [phone] Taty Ramos MD [facility] DR MATERNAL & [place] [address] 02/07/2024 9:00 AM EDT [place] [address] Simin Bay MD [facility] OBSTETRICS [place] [address] 02/07/2024 10:15 AM EDT Routine Obstetrics and Gynecology at [place] [phone] Linda Diaz MD [facility] [place] [address] 03/12/2024 10:45 AM EST Office Visit Endocrinology at [address] James Barth DO [facility] [place] [address] 05/23/2024 Hospital Encounter Birthing [place] [phone] Maite Malloy MD [facility] DR OBSTETRICS [place] [address] documented as of this encounter Visit Diagnoses Diagnosis Borderline personality disorder Unspecified mood (affective) disorder documented in this encounter Care Teams Test Worker Relationship Specialty Start Date End Date Valencia Adhikari APRN [address] [place] [address] PCP - General 04/21/14 07/04/23 documented as of this encounter
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
--- OUTSIDE RECORDS SUMMARY | 2024-01-23 17:55 | XMS_ITS | Encounter Summary ---
[place] [address] Care Team Providers Care Program Advocate Name Role Phone Valencia Adhikari APRN Primary Care Provider [phone] [phone] Encounter Details Date Type Department Care Team (Late st Contact Info) Description 05/11/2020 Telephone Psychiatry [place] [address] Sary Harris Social History Tobacco [...] 01/24/2024 1:00 PM EDT [place] [address] Walt Bay MD [facility] [place] [address] 01/24/2024 2:00 PM EDT Routine Obstetrics and Gynecology at [place] [address] Taty Ramos MD [facility] MATERNAL & [place] [address] 02/07/2024 9:00 AM EDT Appointment Radiology at [place] [address] Walt Bay MD [facility] OBSTET[place]ICS [place] [address] 02/07/2024 10:15 AM EDT Routine Obstetrics and Gynecology at [place] [address] Linda Diaz MD [facility] [place] [address] 03/12/2024 10:45 AM EST Office Visit Endocrinology at [place] [address] James Barth DO [facility] [place] [address] 05/23/2024 Hospital [place] [address] Maite Malloy MD [facility] OBSTET[place]ICS [place] [address] documented as of this encounter Visit Diagnoses Not on filedocumented in this encounter Care Teams Program Advocate Relationship Specialty Start Date End Date Valencia Adhikari APRN [address] [place] [address] PCP - General 04/21/14 07/04/23 documented as of this encounter
--- OUTSIDE RECORDS SUMMARY | 2024-01-23 17:55 | XMS_ITS | Encounter Summary ---
Author Organization [facility] Address [facility] [place] [address] Care Team Providers Care Flight Engineer Helicopter Name Role Phone Valencia Adhikari APRN Primary Care Provider [phone] [phone] Encounter Details Date Type Department Care Team (Late st Contact Info) Description 04/19/2020 Telephone Psychiatry [place] [address] Lisa Dickens, PhD [facility] [place] [address] Social History Tobacco Use Types Packs/Day Years [...] me) Plan: Patient can contact schedulers at [phone] to reschedule if she is still interested in anevaluation or psychotherapy through the Psychiatry Department. documented in this encounter Plan of Treatment Upcoming Encounters Date Type Department Care Team (Late st Contact Info) Description 01/24/2024 1:00 PM EDT Appointment Radiology at [place] [address] Walt Bay MD [facility] DR OBSTETRICS [place] [address] 01/24/2024 2:00 PM EDT Routine Obstetrics and Gynecology at [place] [address] Taty Ramos MD [facility] DR MATERNAL & [place] [address] 02/07/2024 9:00 AM EDT Appointment Radiology at [place] [address] Walt Bay MD [facility] OBSTETRICS [place] [address] 02/07/2024 10:15 AM EDT Routine Obstetrics and Gynecology at [place] [address] Linda Diaz MD [facility] MATERNAL [place] [address] 03/12/2024 10:45 AM EST Office Visit Endocrinology at [place] [address] James Barth DO [facility] [place]IN[place] [address] 05/23/2024 Hospital [place] [address] Maite Malloy MD [facility] DR OBSTET[place] [address] documented as of this encounter Visit Diagnoses Diagnosis Unspecified mood (affective) disorder documented in this encounter Care Teams Flight Engineer Helicopter Relationship Specialty Start Date End Date Valencia Adhikari APRN [address] [place] [address] PCP - General 04/21/14 07/04/23 documented as of this encounter
--- OUTSIDE RECORDS SUMMARY | 2024-01-23 17:55 | XMS_ITS | Encounter Summary ---
Author Organization [facility] [place] [address] Care Team Providers Care State Pilot Name Role Phone OnofreMarilynValencia Oralia SLADE Primary Care Provider [phone] [phone] Reason for Visit * Reason Onset Date Comments Medication Refill 10/13/2019 Encounter Details Date Type Department Care Team (Late st Contact Info) Description 10/13/2019 Refill Psychiatry [place] [address] Argelia Mccray APRN [facility] [place] [address] Depression, unspecified depression type Social History Tobacco [...] 01/24/2024 1:00 PM EDT [place] [address] Simin Bay MD [facility] DR OBSTETRICS [place] [address] 01/24/2024 2:00 PM EDT Routine Obstetrics and Gynecology at [address] Taty Ramos MD [facility] DR MATERNAL [place] [address] 02/07/2024 9:00 AM EDT Appointment Radiology at [place] [address] Simin Bay MD [facility] DR OBSTETRICS [place] [address] 02/07/2024 10:15 AM EDT Routine Obstetrics and Gynecology at [address] Linda Diaz MD [facility] [place] [address] 03/12/2024 10:45 AM EST Office Visit Endocrinology at [address] James Barth DO [facility] [place] [address] 05/23/2024 Hospital [place] [address] Maite Malloy MD [facility] DR OBSTETRICS [place] [address] documented as of this encounter Visit Diagnoses Diagnosis Depression, unspecified depression type documented in this encounter Care Teams State Pilot Relationship Specialty Start Date End Date Valencia Adhikari APRN [address] [place], [place] [address] PCP - General 04/21/14 07/04/23 documented as of this encounter
--- OUTSIDE RECORDS SUMMARY | 2024-01-23 17:55 | XMS_ITS | Encounter Summary ---
Author Organization [facility] [place] [address] Care Team Providers Care Baby Stroller Rental Clerk Name Role Phone Valencia Adhikari APRN Primary Care Provider +1 [phone] Encounter Details Date Type Department Care Team (Late st Contact Info) Description 08/22/2018 8:00 AM EDT Office Visit Psychiatry [place] [phone] Argelia Mccray ELECTRICAL INSTRUMENT TECHNICIAN [facility] [place] [address] Depression, unspecified depression type; Anxiety Social History [...] this encounter Progress Notes * Argelia Mccray, ELECTRICAL INSTRUMENT TECHNICIAN - 08/22/2018 8:00 AM EDT ESTABLISHED ADULT [...] abnormalities Social History: 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 Language: fluent in nepali ?? Mood: depressed ?? Affect: mood-congruent ?? [...] - 10.8 mcg/dL Final Comment: Reference Range: [place]y Cord Blood: 6.9-14.4 mcg/dL Females: 7.2-14.2 mcg/dL Pediatric ranges: Interpret with caution-ranges have not been verified Free T4 Date Value Ref Range Status 07/04/2018 1.15 0.93 - 1.70 ng/dL Final Lipids and HgbA1C: No results found for: CHLPL, HDL, CHOLHDL, LDLCHOL, LDLDIRECT, TRIG No results found for: HA1C Vit Lvls: No results found for: UZFAFSVS92, SFOLATE Tox: No results found for: ETHANOL, ACTMNPHEN, SALICYLATE, LEAD No results found for: UDAUSCREEN Rx Lvls: Lamotrigine Lvl Date Value Ref Range Status 07/04/2018 3.2 2.5 - 15.0 mcg/mL Final Comment: ADDITIONAL INFORMATION This test was developed and its performance characteristics determined by [facility] in a manner consistent with CLIA requirements. This test has not been cleared or approved by the U.S. Food and Drug Administration. Test Performed by: [facility] [address] [place] [address] Formulation and Assessment: Overall Formulation: Andree Hummel [...] 01/24/2024 1:00 PM EDT [place] [address] Simin Bay MD [facility] DR OBSTETRICS [place] [address] 01/24/2024 2:00 PM EDT Routine Obstetrics and Gynecology at [address] Taty Ramos MD [facility] DR MATERNAL & [place] [address] 02/07/2024 9:00 AM EDT Appointment Radiology at [place] [address] Simin Bay MD [facility] DR OBSTETRICS [place] [address] 02/07/2024 10:15 AM EDT Routine Obstetrics and Gynecology at [address] Linda Diaz MD [facility] [place] [address] 03/12/2024 10:45 AM EST Office Visit Endocrinology at [place] [address] James Barth DO [facility] [place] [address] 05/23/2024 Hospital [place] [address] Maite Malloy MD [facility] DR OBSTETRICS [place] [address] documented as of this encounter Visit Diagnoses Diagnosis Depression, unspecified depression type Anxiety Anxiety state, unspecified documented in this encounter Care Teams Baby Stroller Rental Clerk Relationship Specialty Start Date End Date Valencia Adhikari APRN [address] [place] [address] PCP - General 04/21/14 07/04/23 documented as of this encounter
--- OUTSIDE RECORDS SUMMARY | 2024-01-23 17:55 | XMS_ITS | Encounter Summary ---
Author Organization [facility] [place] [address] Care Team Providers Care Dust Collector Attendant Name Role Phone OnofreMarilynValencia Oralia SLADE Primary Care Provider +1 [phone] Reason for Visit * Reason Onset Date Comments Medication Refill 12/24/2018 Encounter Details Date Type Department Care Team (Late st Contact Info) Description 12/24/2018 Ref[place] [phone] Alicia Oviedo APRN [facility] [place] [address] Scapular dyskinesis; Left shoulder pain, unspecified chronicity [...] 01/24/2024 1:00 PM EDT [place] [address] Simin Bay MD [facility] OBSTETRICS [place] [address] 01/24/2024 2:00 PM EDT Routine Obstetrics and Gynecology at [address]1000 Taty Ramos MD [facility] DR MATERNAL & [place] [address] 02/07/2024 9:00 AM EDT Appointment Radiology at [address]1000 Simin Bay MD [facility] DR [place] [address] 02/07/2024 10:15 AM EDT Routine Obstetrics and Gynecology at [address]1000 Linda Diaz MD [facility] DR MATERNAL [place] [address] 03/12/2024 10:45 AM EST Office Visit Endocrinology at [place] [address] James Barth DO [facility] [place] [address] 05/23/2024 Hospital Encounter Birthing [place] [phone] Maite Malloy MD [facility] DR OBSTETRICS [place] [address] documented as of this encounter Visit Diagnoses Diagnosis Scapular dyskinesis Lack of coordination Left shoulder pain, unspecified chronicity documented in this encounter Care Teams Dust Collector Attendant Relationship Specialty Start Date End Date Valencia Adhikari, [place] [address] [place] [address] PCP - General 04/21/14 07/04/23 documented as of this encounter
--- OUTSIDE RECORDS SUMMARY | 2024-01-23 17:55 | XMS_ITS | Encounter Summary ---
Author Organization [facility] Address [facility] [place] [address] Care Team Providers Care Home Attendant Name Role Phone Valencia Adhikari APRN Primary Care Provider +1 [phone] Encounter Details Date Type Department Care Team (Late st Contact Info) Description 05/07/2020 Telephone Psychiatry [place] [address] Mary Bateman Social History Tobacco [...] 01/24/2024 1:00 PM EDT [place] [address] Walt Bay MD [facility] DR OBSTET[place] [address] 01/24/2024 2:00 PM EDT Routine Obstetrics [place] [address] Taty Ramos MD [facility] MATERNAL & [place] [address] 02/07/2024 9:00 AM EDT Appointment Radiology at [address]1000 Walt Bay MD [facility] DR OBSTETRICS [place] [address] 02/07/2024 10:15 AM EDT Routine Obstetrics and Gynecology at [address] Linda Diaz MD [facility] [place] [address] 03/12/2024 10:45 AM EST Office Visit Endocrinology at [address]1000 James Barth DO [facility] [place] [address] 05/23/2024 Hospital [place] [address] Maite Malloy MD [facility] DR OBSTETRICS [place] [address] documented as of this encounter Visit Diagnoses Not on filedocumented in this encounter Care Teams Home Attendant Relationship Specialty Start Date End Date Valencia Adhikari APRN [address] [place] [address] PCP - General 04/21/14 07/04/23 documented as of this encounter
--- OUTSIDE RECORDS SUMMARY | 2024-01-23 17:55 | XMS_ITS | Encounter Summary ---
Author Organization [facility] Address [facility] [place] [address] Care Team Providers Care Fulfillment Representative Name Role Phone OnofreMarilynValencia Oralia SLADE Primary Care Provider +1 -[phone] Reason for Visit * Reason Onset Date Comments Medication Refill 03/22/2020 Encounter Details Date Type Department Care Team (Late st Contact Info) Description 03/22/2020 Refill Psychiatry [place] [address] Osmar South RN Depression, unspecified [...] 01/24/2024 1:00 PM EDT App[place] [address] Walt Bay MD [facility] OBSTETRICS [place] [address] 01/24/2024 2:00 PM EDT Routine Obstetrics and Gynecology at [place] [address] Taty Ramos MD [facility] DR MATERNAL & [place] [address] 02/07/2024 9:00 AM EDT Appointment Radiology at [place] [address] Walt Bay MD [facility] DR OBSTETRICS [place] [address] 02/07/2024 10:15 AM EDT Routine Obstetrics and Gynecology at [place] [address] Linda Diaz MD [facility] [place] [address] 03/12/2024 10:45 AM EST Office Visit Endocrinology at [place] [address] James Barth DO [facility] [place] [address] 05/23/2024 [place] [address] Maite Malloy MD [facility] DR OBSTETRICS [place] [address] documented as of this encounter Visit Diagnoses Diagnosis Depression, unspecified depression type Anxiety Anxiety state, unspecified documented in this encounter Care Teams Fulfillment Representative Relationship Specialty Start Date End Date Valencia Adhikari APRN [address] [place] [address] PCP - General 04/21/14 07/04/23 documented as of this encounter
--- OUTSIDE RECORDS SUMMARY | 2024-01-23 17:55 | XMS_ITS | Encounter Summary ---
Author Organization [facility] Address [facility] [place] [address] Care Team Providers Care Master Merchandiser Name Role Phone OnofreMarilynValencia Oralia SLADE Primary Care Provider +1 [phone] Reason for Visit * Reason Onset Date Comments Medication Refill 03/16/2020 Encounter Details Date Type Department Care Team (Late st Contact Info) Description 03/16/2020 Refill Psychiatry [place] [address] Osmar South RN Anxiety; Depression, [...] 01/24/2024 1:00 PM EDT [place] [address] [facility] OBSTETRICS [place] [address] 01/24/2024 2:00 PM EDT Routine Obstetrics and Gynecology at [place] [address] [facility] DR MATERNAL & [place] [address] 02/07/2024 9:00 AM EDT Appointment Radiology at [place] [address] [facility] DR OBSTETRICS [place] [address] 02/07/2024 10:15 AM EDT Routine Obstetrics and Gynecology at [place] [address] [facility] [address] [place] [address] 03/12/2024 10:45 AM EST Office Visit Endocrinology at [place] [address] [facility] [place] [address] 05/23/2024 Hospital [place] [address] [facility] DR OBSTETRICS [place] [address] documented as of this encounter Visit Diagnoses Diagnosis Anxiety Anxiety state, unspecified Depression, unspecified depression type documented in this encounter Care Teams Master Merchandiser Relationship Specialty Start Date End Date Valencia Adhikari APRN [address] [place] [address] PCP - General 04/21/14 07/04/23 documented as of this encounter
--- OUTSIDE RECORDS SUMMARY | 2024-01-23 17:55 | XMS_ITS | Encounter Summary ---
Author Organization Counts Include [facility] Address [facility] [place] [address] Care Team Providers Care [employer] Flatbed Driver Name Role Phone Valencia Adhikari APRN Primary Care Provider +1 -[phone] Encounter Details Date Type Department Care Team (Latest Contact Info) Description 04/25/2021 3:00 PM EST TH Visit (TeleHealth) Psychiatry [place] [address] Lisa Dickens, PhD [facility] [place] [address] Borderline personality disorder Social History Tobacco Use [...] EST INDIVIDUAL THERAPY PROGRESS NOTE CPT CODE 32124 LOCATION: Telephone office visit. Andree Artislliams gave permission for and was seen for today's appointment with a Telephone office visit. During this visit she was located in her apartment in [place], [place]. Andree Godoy Ozielms is aware that for any urgent matter she can can contact her regional mental health crisis services. For patients located in [place]: [email or web address] or text/call . For patients located in [place]: [email or web address]. To reach their [facility] mental health clinician or the outpatient Department of Psychiatry clinics, patient can call [phone]. SESSION DURATION: 40 minutes ATTENDEES: Patient PRIMARY [...] 01/24/2024 1:00 PM EDT Appointment Radiology at [place] [phone] Simin Bay MD [facility] DR OBSTETRICS [place] [address] 01/24/2024 2:00 PM EDT Routine Obstetrics and Gynecology at [place] [phone] Taty Ramos MD [facility] [address] MATERNAL & [place] [address] 02/07/2024 9:00 AM EDT Appointment [place] [address] Simin Bay MD [facility] DR OBSTETRICS [place] [address] 02/07/2024 10:15 AM EDT Routine Obstetrics and Gynecology at [place] [phone] Linda Diaz MD [facility] [place] [address] 03/12/2024 10:45 AM EST Office Visit [place] [address] James Barth DO [facility] [place] [address] 05/23/2024 [place] [address] Maite Malloy MD [facility] OBSTET[place]ICS [place] [address] documented as of this encounter Visit Diagnoses Diagnosis Borderline personality disorder documented in this encounter Care Teams [employer] Flatbed Driver Relationship Specialty Start Date End Date Valencia Adhikari, [place] [address] [place] [address] PCP - General 04/21/14 07/04/23 documented as of this encounter
--- OUTSIDE RECORDS SUMMARY | 2024-01-23 17:55 | XMS_ITS | Encounter Summary ---
Author Organization [facility] Address [facility] [place] [address] Care Team Providers Care Customer Operations Intern Name Role Phone Valencia Adhikari APRN Primary Care Provider +1 -[phone] Encounter Details Date Type Department Care Team (Late st Contact Info) Description 05/06/2020 Telephone Psychiatry [place] [address] Flora Lyon [facility] [place] [place] [address] Social History Tobacco Use Types Packs/Day Years [...] 01/24/2024 1:00 PM EDT Appointment [place] [address] Simin Bay MD [facility] DR [place] [address] 01/24/2024 2:00 PM EDT Routine Obstetrics and Gynecology at [place] [phone] Taty Ramos MD [facility] DR MATERNAL & [place] [address] 02/07/2024 9:00 AM EDT Appointment Radiology at [place] [phone] Simin Bay MD [facility] DR [place] [address] 02/07/2024 10:15 AM EDT Routine Obstetrics and Gynecology at [place] [phone] Linda Diaz MD [facility] [place] [address] 03/12/2024 10:45 AM EST Office [place] [address] James Barth DO [facility] [place] [address] 05/23/2024 [place] [address] Maite Malloy MD [facility] [place] [address] documented as of this encounter Visit Diagnoses Not on filedocumented in this encounter Care Teams Customer Operations Intern Relationship Specialty Start Date End Date Valencia Adhikari APRN [address] [place] [address] PCP - General 04/21/14 07/04/23 documented as of this encounter
--- OUTSIDE RECORDS SUMMARY | 2024-01-23 17:55 | XMS_ITS | Encounter Summary ---
Author Organization [facility] [place] [address] Care Team Providers Care Financial Reporting Specialist Name Role Phone Valencia Adhikari APRN Primary Care Provider +1 -[phone] Encounter Details Date Type Department Care Team (Late st Contact Info) Description 10/04/2018 Telephone Psychiatry [place] [address] Argelia Mccray APRN [facility] [place] [address] Social History Tobacco Use Types Packs/Day Years [...] 01/24/2024 1:00 PM EDT Appointment Radiology at [address]1000 Simin Bay MD [facility] [place] [address] 01/24/2024 2:00 PM EDT Routine Obstetrics and Gynecology at [address]1000 Taty Ramos MD [facility] MATERNAL & [place] [address] 02/07/2024 9:00 AM EDT Appointment Radiology at [address]1000 Simin Bay MD [facility] [place] [address] 02/07/2024 10:15 AM EDT Routine Obstetrics and Gynecology at [address]1000 Linda Diaz MD [facility] [place] [address] 03/12/2024 10:45 AM EST Office Visit Endocrinology at [address]1000 James Barth DO [facility] [place] [address] 05/23/2024 [place] [address] Maite Malloy MD [facility] [place] [address] documented as of this encounter Visit Diagnoses Not on filedocumented in this encounter Care Teams Financial Reporting Specialist Relationship Specialty Start Date End Date Valencia Adhikari APRN [address] [place] [address] PCP - General 04/21/14 07/04/23 documented as of this encounter
--- OUTSIDE RECORDS SUMMARY | 2024-01-23 17:55 | XMS_ITS | Encounter Summary ---
Author Organization [facility] Address [facility] [place] [address] Care Team Providers Care Transfer Professor Name Role Phone Onofre Valencia Barton APRN Primary Care Provider +1 -[phone] Encounter Details Date Type Department Care Team (Late st Contact Info) Description 03/14/2021 Telephone Psychiatry and Behavioral [place] [address] Mary Bateman Social History Tobacco [...] 01/24/2024 1:00 PM EDT Appointment [place] [address] Walt Bay MD [facility] DR OBSTETRICS [place] [address] 01/24/2024 2:00 PM EDT Routine Obstetrics [place] [address] Taty Ramos MD [facility] MATERNAL & [place] [address] 02/07/2024 9:00 AM EDT Appointment Radiology at [address]1000 Walt Bay MD [facility] DR OBSTETRICS [place] [address] 02/07/2024 10:15 AM EDT Routine Obstetrics and Gynecology at [address]1000 Linda Diaz MD [facility] MATERNAL [place] [address] 03/12/2024 10:45 AM EST Office Visit Endocrinology at [address]1000 James Barth DO [facility] [place] [address] 05/23/2024 [place] [address] Maite Malloy MD [facility] DR OBSTETRICS [place] [address] documented as of this encounter Visit Diagnoses Not on filedocumented in this encounter Care Teams Transfer Professor Relationship Specialty Start Date End Date Valencia Adhikari APRN [address] [place] [address] PCP - General 04/21/14 07/04/23 documented as of this encounter
--- OUTSIDE RECORDS SUMMARY | 2024-01-23 17:55 | XMS_ITS | Encounter Summary ---
Author Organization [facility] [place] [address] Care Team Providers Care Field Hockey Coach Name Role Phone Valencia Adhikari APRN Primary Care Provider +1 -[phone] Encounter Details Date Type Department Care Team (Late st Contact Info) Description 10/03/2018 Telephone Psychiatry [place] [phone] Argelia Mccray APRN [facility] DR PSYCHI[place] [address] Social History Tobacco Use Types Packs/Day Years [...] 01/24/2024 1:00 PM EDT Appointment Radiology at [place] [address] Simin Bay MD [facility] OBSTETRICS [place] [address] 01/24/2024 2:00 PM EDT Routine Obstetrics and Gynecology at [address]1000 Taty Ramos MD [facility] MATERNAL & [place] [address] 02/07/2024 9:00 AM EDT Appointment Radiology at [place] [address] Simin Bay MD [facility] OBSTETRICS [place] [address] 02/07/2024 10:15 AM EDT Routine Obstetrics and Gynecology at [address]1000 Linda Diaz MD [facility] MATERNAL [place] [address] 03/12/2024 10:45 AM EST Office Visit Endocrinology at [address]1000 James Barth DO [facility] [place]IN[place] [address] 05/23/2024 Hospital Encounter Birthing [address]1000 Maite Malloy MD [facility] OBSTETRICS [place] [address] documented as of this encounter Visit Diagnoses Not on filedocumented in this encounter Care Teams Field Hockey Coach Relationship Specialty Start Date End Date Valencia Adhikari APRN [address] [place] [address] PCP - General 04/21/14 07/04/23 documented as of this encounter
--- OUTSIDE RECORDS SUMMARY | 2024-01-23 17:55 | XMS_ITS | Encounter Summary ---
Author Organization [facility] Address [facility] [place] [address] Care Team Providers Care Extension Educator Name Role Phone Valencia Adhikari APRN Primary Care Provider +1 -[phone] Encounter Details Date Type Department Care Team (Late st Contact Info) Description 05/14/2020 Telephone Psychiatry and [place] [address] Crispin Fuller MD [facility] [place] [address] Social History Tobacco Use Types Packs/Day Years [...] continue with the process to go to [facility] for therapy. She requested options [...] PM EDT Appointment Radiology at [place] [phone] [facility] DR OBSTETRICS [place] [address] 01/24/2024 2:00 PM EDT Routine Obstetrics and Gynecology at [place] [phone] [facility] [address] MATERNAL & [place] [address] 02/07/2024 9:00 AM EDT Appointment Radiology at [place] [phone] [facility] [place] [address] 02/07/2024 10:15 AM EDT Routine Obstetrics and Gynecology at [place] [phone] [facility] [place]ERNAL [place] [address] 03/12/2024 10:45 AM EST Office Visit Endocrinology at [address] [facility] [place] [address] 05/23/2024 Hospital Encounter Birthing [place] [phone] [facility] OBSTETRICS [place] [address] documented as of this encounter Visit Diagnoses Not on filedocumented in this encounter Care Teams Extension Educator Relationship Specialty Start Date End Date Valencia Adhikari APRN [address] [place] [address] PCP - General 04/21/14 07/04/23 documented as of this encounter
--- OUTSIDE RECORDS SUMMARY | 2024-01-23 17:55 | XMS_ITS | Encounter Summary ---
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 Language: fluent in [place] islander ?? Mood: anxious ?? Affect: mood-congruent ?? [...] - 10.8 mcg/dL Final Comment: Reference Range: [place] Blood: 6.9-14.4 mcg/dL Females: 7.2-14.2 mcg/dL Pediatric ranges: Interpret with caution-ranges have not been verified Free T4 Date Value Ref Range Status 07/04/2018 1.15 0.93 - 1.70 ng/dL Final Lipids and HgbA1C: No results found for: CHLPL, HDL, CHOLHDL, LDLCHOL, LDLDIRECT, TRIG No results found for: HA1C Vit Lvls: No results found for: JQAHBJCT15, SFOLATE Tox: No results found for: ETHANOL, ACTMNPHEN, SALICYLATE, LEAD No results found for: UDAUSCREEN Rx Lvls: Lamotrigine Lvl Date Value Ref Range Status 07/04/2018 3.2 2.5 - 15.0 mcg/mL Final Comment: ADDITIONAL INFORMATION This test was developed and its performance characteristics determined by [facility] in a manner consistent with CLIA requirements. This test has not been cleared or approved by the U.S. Food and Drug Administration. Test Performed by: [facility] [address] [place] [address] Formulation and Assessment: Overall Formulation: Andree Hummel [...] and how it is not meant for terminal operations supervisor use. Brooklynn voices her understanding and states that she does not want to be on this medication terminal operations supervisor. Since being on the medication she has [...] 01/24/2024 1:00 PM EDT Appointment Radiology at [place] [phone] Simin Bay MD [facility] DR OBSTETRICS [place] [address] 01/24/2024 2:00 PM EDT Routine Obstetrics and Gynecology at [address] Taty Ramos MD [facility] MATERNAL & [place] [address] 02/07/2024 9:00 AM EDT Appointment Radiology at [place] [phone] Simin Bya MD [facility] DR OBSTETRICS [place] [address] 02/07/2024 10:15 AM EDT Routine Obstetrics and Gynecology at [place] [phone] Linda Diaz MD [facility] [place] [address] 03/12/2024 10:45 AM EST Office [place] [address] James Barth DO [facility] [place] [address] 05/23/2024 Hospital [place] [address] Maite Malloy MD [facility] DR OBSTET[place] [address] documented as of this encounter Visit Diagnoses Diagnosis Anxiety Anxiety state, unspecified Depression, unspecified depression type documented in this encounter Care Teams Division Service Manager Relationship Specialty Start Date End Date Valencia Adhikari APRN [address] [place] [address] PCP - General 04/21/14 07/04/23 documented as of this encounter
--- OUTSIDE RECORDS SUMMARY | 2024-01-23 17:55 | XMS_ITS | Encounter Summary ---
Author Organization [facility] [place] [address] Care Team Providers Care Channel Director Name Role Phone Valencia Adhikari APRN Primary Care Provider +1 -[phone] Encounter Details Date Type Department Care Team (Late st Contact Info) Description 07/15/2020 Telephone Psychiatry and [place] [phone] Lisa Dickens, PhD [facility] DR [place] [address] Social History Tobacco Use Types Packs/Day Years [...] scheduled session on 07/22 or call our bioinformatics support specialist at [phone]. Diagnosis: Borderline Personality Disorder; Unspecified Mood Disorder Plan: Pt will attend next scheduled visit on 07/22/20. documented in this encounter Plan of Treatment Upcoming Encounters Date Type Department Care Team (Late st Contact Info) Description 01/24/2024 1:00 PM EDT Appointment Radiology at [place] [address] Walt Bay MD [facility] OBSTET[place] [address] 01/24/2024 2:00 PM EDT Routine Obstetrics and Gynecology at [place] [address] Taty Ramos MD [facility] MATERNAL & [place] [address] 02/07/2024 9:00 AM EDT Appointment Radiology at [place] [address] Walt Bay MD [facility] OBST[place] [address] 02/07/2024 10:15 AM EDT Routine Obstetrics and Gynecology at [place] [address] Linda Diaz MD [facility] [place] [address] 03/12/2024 10:45 AM EST Office Visit Endocrinology at [place] [address] James Barth DO [facility] [place] [address] 05/23/2024 Hospital [place] [address] Maite Malloy MD [facility] OBSTETRICS [place] [address] documented as of this encounter Visit Diagnoses Diagnosis Borderline personality disorder Unspecified mood (affective) disorder documented in this encounter Care Teams Channel Director Relationship Specialty Start Date End Date Valencia Adhikari APRN [address] [place] [address] PCP - General 04/21/14 07/04/23 documented as of this encounter
--- OUTSIDE RECORDS SUMMARY | 2024-01-23 17:55 | XMS_ITS | Encounter Summary ---
[place] [address] Care Team Providers Care Devops Engineer Name Role Phone Valencia Adhikari APRN Primary Care Provider +1 -[phone] Reason for Visit * Reason Onset Date Comments Prior Authorization 12/31/2018 Celecoxib 20 0 mg Prior Authorization 01/02/2019 Request for information from [facility] Encounter Details Date Type Department Care Team (Late st Contact Info) Description 12/31/2018 Telephone [place] [address] Geovanna Paredes RN Prior Authorization (Celecoxib 200 mg ); Prior Authorization (Request for information from [facility]) Social History Tobacco Use Types Packs/Day Years [...] EDT PA Request received by fax from [facility] Request for information - documentation to show previous - continuous use of Celebrex Documentation faxed to [facility] # [phone] Awaiting response. * Telephone Encounter - Geovanna Paredes RN - 12/31/2018 4:49 PM EDT Prior Auth Request received from [facility] [address] [place] [address] Celecoxib 200 mg cap - Take 1 capsule by mouth daily. Disp 30 Refill 1 Insurer: MARIAM ID: [id number] Provider: Alicia Oviedo APRN Diagnosis: Scapular Dyskinesis - G25.89 Left Shoulder Pain - M25.512 Patient has been effectively using this medication continuously since 11/16/2017. Previously tried: Voltaren Gel - 2017 - Not effective enough. Patient has Physical Therapy & Steroid Injections without relief. Sense[employer] Forms completed, signed and faxed to [facility] [place] [facility] at . Awaiting Response. documented in this encounter Plan of Treatment Upcoming Encounters Date Type Department Care Team (Late st Contact Info) Description 01/24/2024 1:00 PM EDT Appointment [place] [address] Walt Bay MD [facility] [address] OBSTETRICS [place] [address] 01/24/2024 2:00 PM EDT Routine Obstetrics [place] [address] Taty Ramos MD [facility] MATERNAL & [place] [address] 02/07/2024 9:00 AM EDT Appointment [place] [address] Walt Bay MD [facility] DR OBSTETRICS [place] [address] 02/07/2024 10:15 AM EDT Routine Obstetrics and Gynecology at [place] [phone] Linda Diaz MD [facility] [place] [address] 03/12/2024 10:45 AM EST Office [place] [address] James Barth DO [facility] [place] [address] 05/23/2024 Hospital Encounter Birthing [place] [phone] Maite Malloy MD [facility] DR OBSTETRICS [place] [address] documented as of this encounter Visit Diagnoses Not on filedocumented in this encounter Care Teams Devops Engineer Relationship Specialty Start Date End Date Valencia Adhikari APRN [address] [place] [address] PCP - General 04/21/14 07/04/23 documented as of this encounter
--- OUTSIDE RECORDS SUMMARY | 2024-01-23 17:55 | XMS_ITS | Encounter Summary ---
Author Organization [facility] Address [facility] [place] [address] Care Team Providers Care Provider Network Analyst Name Role Phone OnofreValencia pitts [place] Primary Care Provider +1 -[phone] Reason for Visit * Reason Onset Date Comments Medication Refill 03/19/2020 Encounter Details Date Type Department Care Team (Late st Contact Info) Description 03/19/2020 Refill Psychiatry [place] [address] Crispin Fuller MD [facility] [place] [address] Depression, unspecified depression type; Anxiety Social History [...] 01/24/2024 1:00 PM EDT [place] [phone] Walt Bay MD [facility] DR OBSTETRICS [place] [address] 01/24/2024 2:00 PM EDT Routine Obstetrics and Gynecology at [address]1000 Taty Ramos MD [facility] DR MATERNAL & [place] [address] 02/07/2024 9:00 AM EDT Appointment Radiology at [place] [address] Walt Bay MD [facility] DR OBSTETRICS [place] [address] 02/07/2024 10:15 AM EDT Routine Obstetrics and Gynecology at [address]1000 Linda Diaz MD [facility] [address] [place]ERNAL [place] [address] 03/12/2024 10:45 AM EST Office Visit Endocrinology at [place] [address] James Barth DO [facility] [place] [address] 05/23/2024 Hospital [place] [address] Maite Malloy MD [facility] DR OBSTETRICS [place] [address] documented as of this encounter Visit Diagnoses Diagnosis Depression, unspecified depression type Anxiety Anxiety state, unspecified documented in this encounter Care Teams Provider Network Analyst Relationship Specialty Start Date End Date Valencia Adhikari APRN [address] [place] [address] PCP - General 04/21/14 07/04/23 documented as of this encounter
--- OUTSIDE RECORDS SUMMARY | 2024-01-23 17:55 | XMS_ITS | Encounter Summary ---
Author Organization [facility] Address [facility] [place] [address] Care Team Providers Care Orange Picker Machine Operator Name Role Phone OnofreValencia pitts [place] Primary Care Provider +1 -[phone] Encounter Details Date Type Department Care Team (Late st Contact Info) Description 05/14/2020 Orders Only Psychiatry [place] [address] Crispin Fuller MD [facility] [place] [address] Social History Tobacco Use Types Packs/Day Years [...] 01/24/2024 1:00 PM [place] [address] Walt Bay MD [facility] OBSTETRICS [place] [address] 01/24/2024 2:00 PM EDT Routine Obstetrics and Gynecology at [place] [address] Taty Ramos MD [facility] DR MATERNAL & [place] [address] 02/07/2024 9:00 AM EDT Appointment Radiology at [place] [address] Walt Bay MD [facility] DR OBSTETRICS [place] [address] 02/07/2024 10:15 AM EDT Routine Obstetrics and Gynecology at [address]1000 Linda Diaz MD [facility] [place]ERNAL [place] [address] 03/12/2024 10:45 AM EST Office Visit Endocrinology at [place] [address] James Barth DO [facility] [place] [address] 05/23/2024 Hospital [place] [address] Maite Malloy MD [facility] OBSTETRICS [place] [address] documented as of this encounter Visit Diagnoses Not on filedocumented in this encounter Care Teams Orange Picker Machine Operator Relationship Specialty Start Date End Date Valencia Adhikari APRN [address] [place] [address] PCP - General 04/21/14 07/04/23 documented as of this encounter
--- OUTSIDE RECORDS SUMMARY | 2024-01-23 17:55 | XMS_ITS | Encounter Summary ---
Author Organization [facility] Address [facility] [place] [address] Care Team Providers Care Green Belt Name Role Phone Valencia Adhikari APRN Primary Care Provider +1 -[phone] Encounter Details Date Type Department Care Team (Latest Contact Info) Description 05/02/2021 3:00 PM EST TH Visit (TeleHealth) Psychiatry [place] [address] Lisa Dickens, PhD [facility] [place] [address] Borderline personality disorder; Unspecified mood (affective) disorder [...] EST INDIVIDUAL THERAPY PROGRESS NOTE CPT CODE 19519 LOCATION: Telephone office visit. Andree Artislliams gave permission for and was seen for today's appointment with a Telephone office visit. During this visit she was located in her apartment in [place], [place]. Tsohaaaron Hummel is aware that for any urgent matter she can can contact her regional mental health crisis services. For patients located in [place]: [email or web address] or text/call . For patients located in [place]: [email or web address]. To reach their [facility] mental health clinician or the outpatient Department of Psychiatry clinics, patient can call [phone]. SESSION DURATION: 30 minutes ATTENDEES: Patient PRIMARY [...] 01/24/2024 1:00 PM EDT [place] [address] [facility] OBSTETRICS [place] [address] 01/24/2024 2:00 PM EDT Routine Obstetrics and Gynecology at [address] [facility] MATERNAL [place] [address] 02/07/2024 9:00 AM EDT Appointment Radiology at [place] [address] [facility] OBSTETRICS [place] [address] 02/07/2024 10:15 AM EDT Routine Obstetrics and Gynecology at [address] [facility] [place] [address] 03/12/2024 10:45 AM EST Office Visit Endocrinology at [address] [facility] [place] [address] 05/23/2024 Hospital [place] [address] [facility] OBSTETRICS [place] [address] documented as of this encounter Visit Diagnoses Diagnosis Borderline personality disorder Unspecified mood (affective) disorder documented in this encounter Care Teams Green Belt Relationship Specialty Start Date End Date Valencia Adhikari, [place] [address] [place] [address] PCP - General 04/21/14 07/04/23 documented as of this encounter
--- OUTSIDE RECORDS SUMMARY | 2024-01-23 17:55 | XMS_ITS | Encounter Summary ---
Author Organization [facility] [place] [place] [address] Care Team Providers Care Neuropathologist Name Role Phone OnofreMarilynValenciaadan Barton APRN Primary Care Provider +1 -[phone] Reason for Visit * Reason Onset Date Comments Medication Refill 04/27/2019 Encounter Details Date Type Department Care Team (Late st Contact Info) Description 04/27/2019 Refill Psychiatry [place] [address] Argelia Mccray APRN [facility] [place] [address] Anxiety Social History Tobacco Use Types Packs/Day [...] 01/24/2024 1:00 PM EDT Appointment [place] [address] Simin aBy MD [facility] DR OBSTETRICS AND GYNECOLOGY [place], [place] [address] 01/24/2024 2:00 PM EDT Routine Obstetrics and Gynecology at [address]1000 Taty Ramos MD [facility] DR MATERNAL & [place] [address] 02/07/2024 9:00 AM EDT Appointment Radiology at [place] [address] Simin Bay MD [facility] DR OBSTET[place]ICS [place] [address] 02/07/2024 10:15 AM EDT Routine Obstetrics and Gynecology at [address]1000 Linda Diaz MD [facility] [place] [address] 03/12/2024 10:45 AM EST Office Visit Endocrinology at [place] [address] James Barth DO [facility] [place] [address] 05/23/2024 Hospital [place] [address] Maite Malloy MD [facility] DR OBSTETRICS [place] [address] documented as of this encounter Visit Diagnoses Diagnosis Anxiety Anxiety state, unspecified documented in this encounter Care Teams Neuropathologist Relationship Specialty Start Date End Date Valencia Adhikari APRN [address] [place] [address] PCP - General 04/21/14 07/04/23 documented as of this encounter
--- OUTSIDE RECORDS SUMMARY | 2024-01-23 17:55 | XMS_ITS | Encounter Summary ---
Author Organization [facility] Address [facility] [place] [address] Care Team Providers Care Cotton Stomper Name Role Phone OnofreValencia pitts Oralia SLADE Primary Care Provider +1 -[phone] Encounter Details Date Type Department Care Team (Late st Contact Info) Description 10/28/2018 Orders Only Psychiatry [place] [phone] Argelia Mccray APRN [facility] [place] [address] Anxiety Social History Tobacco Use Types Packs/Day [...] 01/24/2024 1:00 PM EDT [place] [address] Walt Bay MD [facility] [place] [address] 01/24/2024 2:00 PM EDT Routine Obstetrics and Gynecology at [place] [address] Taty Ramos MD [facility] MATERNAL & [place] [address] 02/07/2024 9:00 AM EDT Appointment Radiology at [place] [address] Walt Bay MD [facility] DR OBSTETRICS [place] [address] 02/07/2024 10:15 AM EDT Routine Obstetrics and Gynecology at [address]1000 Linda Diaz MD [facility] [place] [address] 03/12/2024 10:45 AM EST Office Visit Endocrinology at [place] [address] James Barth DO [facility] [place] [address] 05/23/2024 [place] [address] Maite Malloy MD [facility] DR OBSTETRICS [place] [address] documented as of this encounter Visit Diagnoses Diagnosis Anxiety Anxiety state, unspecified documented in this encounter Care Teams Cotton Stomper Relationship Specialty Start Date End Date Valencia Adhikari APRN [address] [place] [address] PCP - General 04/21/14 07/04/23 documented as of this encounter
--- OUTSIDE RECORDS SUMMARY | 2024-01-23 17:55 | XMS_ITS | Encounter Summary ---
Author Organization [facility] Address [facility] [place] [address] Care Team Providers Care Shot Core Drill Operator Helper Name Role Phone OnofreValencia pitts [place] Primary Care Provider +1 -[phone] Encounter Details Date Type Department Care Team (Late st Contact Info) Description 06/17/2020 Orders Only Psychiatry [place] [address] Crispin Fuller MD [facility] [place] [address] Social History Tobacco Use Types Packs/Day Years [...] 01/24/2024 1:00 PM EDT [place] [address] Walt Bay MD [facility] OBSTETRICS [place] [address] 01/24/2024 2:00 PM EDT Routine Obstetrics and Gynecology at [place] [address] Taty Ramos MD [facility] DR MATERNAL & [place] [address] 02/07/2024 9:00 AM EDT Appointment Radiology at [place] [address] Walt Bay MD [facility] DR OBSTETRICS [place] [address] 02/07/2024 10:15 AM EDT Routine Obstetrics and Gynecology at [address]1000 Linda Diaz MD [facility] [place] [address] 03/12/2024 10:45 AM EST Office Visit Endocrinology at [place] [address] James Barth DO [facility] [place] [address] 05/23/2024 [place] [address] Maite Malloy MD [facility] OBSTETRICS [place] [address] documented as of this encounter Visit Diagnoses Not on filedocumented in this encounter Care Teams Shot Core Drill Operator Helper Relationship Specialty Start Date End Date Valencia Adhikari APRN [address] [place] [address] PCP - General 04/21/14 07/04/23 documented as of this encounter
--- OUTSIDE RECORDS SUMMARY | 2024-01-23 17:55 | XMS_ITS | Encounter Summary ---
Author Organization [facility] [place] [address] Care Team Providers Care Sales Commissions Analyst Name Role Phone OnofreMarilyn pittshryn Oralia SLADE Primary Care Provider +1 -[phone] Reason for Visit * Reason Onset Date Comments Medication Refill 12/24/2018 Encounter Details Date Type Department Care Team (Late st Contact Info) Description 12/24/2018 Refill Psychiatry [place] [address] Argelia Mccray APRN [facility] [place] [address] Depression, unspecified depression type; Anxiety Social History [...] 01/24/2024 1:00 PM EDT [place] [address] Simin Bay MD [facility] DR OBSTET[place] [address] 01/24/2024 2:00 PM EDT Routine Obstetrics and Gynecology at [address]1000 Taty Ramos MD [facility] [address] MATERNAL & [place] [address] 02/07/2024 9:00 AM EDT Appointment Radiology at [address]1000 Simin Bay MD [facility] DR [place]STET[place] [address] 02/07/2024 10:15 AM EDT Routine Obstetrics and Gynecology at [address]1000 Linda Diaz MD [facility] [place] [address] 03/12/2024 10:45 AM EST Office Visit Endocrinology at [place] [address] James Barth DO [facility] [place] [address] 05/23/2024 Hospital Encounter Birthing [place] [phone] Maite Malloy MD [facility] DR OBSTET[place] [address] documented as of this encounter Visit Diagnoses Diagnosis Depression, unspecified depression type Anxiety Anxiety state, unspecified documented in this encounter Care Teams Sales Commissions Analyst Relationship Specialty Start Date End Date Valencia Adhikari APRN [address] [place] [address] PCP - General 04/21/14 07/04/23 documented as of this encounter
--- OUTSIDE RECORDS SUMMARY | 2024-01-23 17:55 | XMS_ITS | Encounter Summary ---
Author Organization [facility] Address [facility] [place] [address] Care Team Providers Care Superior Court Judge Name Role Phone Valencia Adhikari APRN Primary Care Provider [phone] Encounter Details Date Type Department Care Team (Late st Contact Info) Description 05/03/2020 10:30 AM EST TH Visit (TeleHealth) Psychiatry [place] [address] Crispni Fuller MD [facility] [place] [address] Hyperthyroidism Social History Tobacco Use Types Packs/Day [...] Attendee(s): Patient This patient was seen with automation and controls supervisor Dr. Awad. See their note for confirmatory and/or revisionarydocumentation. Andree Hummel gave permission for and was seen for today's appointment with a Telehealth visit. During this visit they were located in [place]. Andree Hummel is aware that for any urgent matter they can call [phone]. Chief Complaint: a lot has been going on History of Present Illness: () (Quality, Severity, Duration, Timing, Context, Modifying factors, Associated S&S) Andree Hummel is a 29 y.o. female with history of depression, anxiety, and hyperthyroidism s/p thyroidectomy presenting for follow-up and medication management. -Reports she has been busy since we last spoke. She lost her job at [employer],and started working at [employer]. Endorses multiple psychosocial stressors including father with [...] Denies Prior outpatient treatment: Seen by Dr. rAmida Griffith during for medication trials post Prior [...] cats and a dog. 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 Vitals (24hr Range): No data found. Musculoskeletal System: normal gait and balance, ambulates independently and no atrophy Mental Status Exam: ?? Appearance: age appropriate and casually dressed ?? Behavior: cooperative with the interview and calm ?? Speech: normal pitch, normal volume, normal rate and normal rhythm ?? Language: fluent in lebanese ?? Mood: not great ?? 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 No suicidal ideation. Having difficulty taking medication consistently. No medication changes today--focus on regular adherence first. Jessica Awad MD documented in this encounter Plan of Treatment Upcoming Encounters Date Type Department Care Team (Late st Contact Info) Description 01/24/2024 1:00 PM EDT Appointment Radiology at [place] [address] Simin Bay MD [facility] [address] OB[place] [address] 01/24/2024 2:00 PM EDT Routine Obstetrics and Gynecology at [address] Taty Ramos MD [facility] [place]NAL [place] [address] 02/07/2024 9:00 AM EDT Appointment Radiology at [address]1000 Simin Bay MD [facility] DR [place]ST[place] [address] 02/07/2024 10:15 AM EDT Routine Obstetrics and Gynecology at [address] Linda Diaz MD [facility] [place] [address] 03/12/2024 10:45 AM EST Office Visit [place] [address] James Barth DO [facility] [place] [address] 05/23/2024 Hospital Encounter [facility] [place] [address] Maite Malloy MD [facility] DR OBSTET[place] [address] documented as of this encounter Visit Diagnoses Diagnosis Hyperthyroidism Thyrotoxicosis without mention of goiter or other cause, without mention of thyrotoxic crisis or storm documented in this encounter Care Teams Superior Court Judge Relationship Specialty Start Date End Date Valencia Adhikari APRN [address] [place] [address] PCP - General 04/21/14 07/04/23 documented as of this encounter
--- OUTSIDE RECORDS SUMMARY | 2024-01-23 17:55 | XMS_ITS | Encounter Summary ---
Author Organization [facility] [place] [address] Care Team Providers Care Multiple Punch Press Operator Name Role Phone OnofreMarilyn pittshryn Oralia SLADE Primary Care Provider [phone] Reason for Visit * Reason Onset Date Comments Medication Refill 10/26/2018 Encounter Details Date Type Department Care Team (Late st Contact Info) Description 10/26/2018 Refill Psychiatry [place] [phone] Argelia Mccray APRN [facility] [place] [address] Depression, unspecified depression type; Anxiety Social History [...] 01/24/2024 1:00 PM [place] [phone] Simin Bay MD [facility] DR OBSTETRICS [place] [address] 01/24/2024 2:00 PM EDT Routine Obstetrics and Gynecology at [address] Taty Ramos MD [facility] DR MATERNAL & [place] [address] 02/07/2024 9:00 AM EDT Appointment Radiology at [address]1000 Simin Bay MD [facility] DR OBSTET[place] [address] 02/07/2024 10:15 AM EDT Routine Obstetrics and Gynecology at [address] Linda Diaz MD [facility] [place] [address] 03/12/2024 10:45 AM EST Office Visit Endocrinology at [place] [address] James Barth DO [facility] [place] [address] 05/23/2024 Hospital Encounter Birthing [place] [phone] Maite Malloy MD [facility] DR OBSTETRICS [place] [address] documented as of this encounter Visit Diagnoses Diagnosis Depression, unspecified depression type Anxiety Anxiety state, unspecified documented in this encounter Care Teams Multiple Punch Press Operator Relationship Specialty Start Date End Date Valencia Adhikari APRN [address] [place] [address] PCP - General 04/21/14 07/04/23 documented as of this encounter
--- OUTSIDE RECORDS SUMMARY | 2024-01-23 17:55 | XMS_ITS | Encounter Summary ---
Author Organization [facility] Address [facility] [address] Care Team Providers Care Director General Name Role Phone Valencia Adhikari APRN Primary Care Provider [phone] Reason for Visit * Psychiatric - Closed Specialty Diagnoses / Procedures Referred By Lamont riggins Referred To Contact Psychiatry Diagnoses Unspecified mood (affective) disorder Crispin Fuller MD [facility] [place] [address] Lisa Dickens, PhD [facility] [place] [address] Referral ID Status Reason Start Date Expiration Date V isits Requested Visits Authorized [id number] Closed Consult, Test & Treat 02/16/2020 02/15/2021 1 1 Encounter Details Date Type Department Care Team (Latest Contact Info) Description 07/12/2020 9:00 AM EDT TH Visit (TeleHealth) Psychiatry [place] [address] Lisa Dickens, PhD [facility] [place] [address] Borderline personality disorder; Mood disorder Social History [...] EDT INDIVIDUAL THERAPY PROGRESS NOTE CPT CODE 84891 LOCATION: Telehealth. Andree Godoy WallisKamranTamara gave permission for and was seen for today's appointment with a Telehealth visit. During this visit she was located in her apartment in [place], [place]. Andree WallisKamranTamara is aware that for any urgent matter she can call [phone]. SESSION DURATION: 60 minutes ATTENDEES: Patient PRIMARY COMPLAINT/DIAGNOSIS: Borderline Personality Disorder; Unspecified Mood Disorder TREATMENT MODALITY: DBT PATIENT REPORT OF CURRENT FUNCTIONING/CHANGES: This was our initial session. Patient had an evaluation with Dr. Crispin Fuller in February 2020. During today's session, patient reported: -grew up in cheondoism [place] Confucianism household, parents immigrated from [place] and were very cheondoism, patient was oldest of 4 biological children, [...] 01/24/2024 1:00 PM EDT Appointment Radiology at [place] [address] Simin Bay MD [facility] [address] [place]ST[place] [address] 01/24/2024 2:00 PM EDT Routine Obstetrics and Gynecology at [place] [address] Taty Ramos MD [facility] [address] MATERNAL [place] [address] 02/07/2024 9:00 AM EDT Appointment Radiology at [place] [address] Simin Bay MD [facility] DR OBSTET[place]ICS [place] [address] 02/07/2024 10:15 AM EDT Routine Obstetrics and Gynecology at [address]1000 Linda Diaz MD [facility] [place]ERNAL [place] [address] 03/12/2024 10:45 AM EST Office Visit Endocrinology at [address] James Barth DO [facility] [place] [address] 05/23/2024 Hospital [facility] [place] [address] Maite Malloy MD [facility] OBSTETRICS [place] [address] Scheduled Referrals Name Type Priority Associated Diagnoses Order Schedule Referral to Psychology Outpatient Referral Routine Unspecified mood (affective) disorder Ordered: 02/16/2020 documented as of this encounter Visit Diagnoses Diagnosis Borderline personality disorder Mood disorder Unspecified episodic mood disorder documented in this encounter Care Teams Director General Relationship Specialty Start Date End Date Valencia Adhikari APRN [address] [place] [address] PCP - General 04/21/14 07/04/23 documented as of this encounter
--- OUTSIDE RECORDS SUMMARY | 2024-01-23 17:55 | XMS_ITS | Encounter Summary ---
Author Organization [facility] Address [facility] [place] [address] Care Team Providers Care Hat Binder Name Role Phone Richard Rasheed MD Primary Care Provider [phone] Reason for Visit * Reason Onset Date Comments Medication Refill 09/02/2018 Encounter Details Date Type Department Care Team (Late st Contact Info) Description 09/02/2018 Refill Psychiatry [place] [address] Argelia Mccray APRN [facility] [place] [address] Anxiety Social History Tobacco Use Types Packs/Day [...] 01/24/2024 1:00 PM EDT Appointment [place] [address] Walt Bay MD [facility] DR [place] [address] 01/24/2024 2:00 PM EDT Routine Obstetrics and Gynecology at [address]1000 Taty Ramos MD [facility] [address] MATERNAL & [place] [address] 02/07/2024 9:00 AM EDT Appointment Radiology at [place] [address] Walt Bay MD [facility] DR OBSTET[place]ICS [place] [address] 02/07/2024 10:15 AM EDT Routine Obstetrics and Gynecology at [place] [address] Linda Diaz MD [facility] [place] [address] 03/12/2024 10:45 AM EST Office Visit Endocrinology at [place] [address] James Barth DO [facility] [place] [address] 05/23/2024 [place] [address] Maite Malloy MD [facility] DR OBSTETRICS [place] [address] documented as of this encounter Visit Diagnoses Diagnosis Anxiety Anxiety state, unspecified documented in this encounter Care Teams Hat Binder Relationship Specialty Start Date End Date Richard Rasheed MD [address] [place] [address] PCP - General Family Medicine 07/05/23 documented as of this encounter
--- OUTSIDE RECORDS SUMMARY | 2024-01-23 17:55 | XMS_ITS | Encounter Summary ---
Author Organization [facility] Address [facility] [place] [address] Care Team Providers Care Fingernail Sculptor Name Role Phone Valencia Adhikari APRN Primary Care Provider [phone] Encounter Details Date Type Department Care Team (Latest Contact Info) Description 07/29/2020 1:00 PM EDT TH Visit (TeleHealth) Psychiatry [place] [address] Lisa Dickens, PhD [facility] DR [place] [address] Borderline personality disorder; Unspecified mood (affective) disorder [...] EDT INDIVIDUAL THERAPY PROGRESS NOTE CPT CODE 17784 LOCATION: Telehealth. Andree Hummel gave permission for and was seen for today's appointment with a Telehealth visit. During this visit she was located in her apartment in [place], [place]. Andree WallisYasir is aware that for any urgent matter she can call [phone]. SESSION DURATION: 50 minutes ATTENDEES: Patient PRIMARY [...] Review the Mindfulness Skills handouts sent via [facility]. Practice Observe Skills. Next Appointment: 08/05/2020 Lisa Dickens, PhD documented in this encounter Plan of Treatment Upcoming Encounters Date Type Department Care Team (Late st Contact Info) Description 01/24/2024 1:00 PM EDT Appointment Radiology at [place] [phone] Simin Bay MD [facility] OBSTETRICS [place] [address] 01/24/2024 2:00 PM EDT Routine Obstetrics and Gynecology at [place] [phone] Taty Ramos MD [facility] MATERNAL & [place] [address] 02/07/2024 9:00 AM EDT Appointment Radiology at [place] [phone] Simin Bay MD [facility] OBSTETRICS [place] [address] 02/07/2024 10:15 AM EDT Routine Obstetrics [place] [address] Linda Diaz MD [facility] MATERNAL [place] [address] 03/12/2024 10:45 AM EST Office Visit [place] [address] James Barth DO [facility] [place] [address] 05/23/2024 Hospital [place] [address] Maite Malloy MD [facility] OBSTETRICS [place] [address] documented as of this encounter Visit Diagnoses Diagnosis Borderline personality disorder Unspecified mood (affective) disorder documented in this encounter Care Teams Fingernail Sculptor Relationship Specialty Start Date End Date Valencia Adhikari APRN [address] [place] [address] PCP - General 04/21/14 07/04/23 documented as of this encounter
--- OUTSIDE RECORDS SUMMARY | 2024-01-23 17:55 | XMS_ITS | Encounter Summary ---
[place] [address] Care Team Providers Care Database Consultant Name Role Phone Valencia Adhikari APRN Primary Care Provider [phone] Encounter Details Date Type Department Care Team (Late st Contact Info) Description 05/18/2020 Telephone Psychiatry [place] [address] Sary Harris Social History Tobacco [...] 01/24/2024 1:00 PM ED[place] [address] Walt Bay MD [facility] OBSTETRICS [place] [address] 01/24/2024 2:00 PM EDT Routine Obstetrics and Gynecology at [place] [address] Taty Ramos MD [facility] MATERNAL & [place] [address] 02/07/2024 9:00 AM EDT Appointment Radiology at [place] [address] Walt Bay MD [facility] OBSTETRICS [place] [address] 02/07/2024 10:15 AM EDT Routine Obstetrics and Gynecology at [place] [address] Linda Diaz MD [facility] MATERNAL [place] [address] 03/12/2024 10:45 AM EST Office Visit Endocrinology at [place] [address] James Barth DO [facility] [place] [address] 05/23/2024 Hospital [place] [address] Maite Malloy MD [facility] OBSTETRICS [place] [address] documented as of this encounter Visit Diagnoses Not on filedocumented in this encounter Care Teams Database Consultant Relationship Specialty Start Date End Date Valencia Adhikari APRN [address] [place] [address] PCP - General 04/21/14 07/04/23 documented as of this encounter
--- OUTSIDE RECORDS SUMMARY | 2024-01-23 17:55 | XMS_ITS | Encounter Summary ---
Author Organization [facility] Address [facility] [place] [address] Care Team Providers Care Options Advisor Name Role Phone Valencia Adhikari APRN Primary Care Provider [phone] Encounter Details Date Type Department Care Team (Late st Contact Info) Description 05/11/2020 Telephone Psychiatry [place] [address] Crispin Fuller MD [facility] [place] [address] Social History Tobacco Use Types Packs/Day Years [...] 01/24/2024 1:00 PM EDT Appointment Radiology at [address]1000 Simin Bay MD [facility] DR [place] [address] 01/24/2024 2:00 PM EDT Routine Obstetrics and Gynecology at [address]1000 Taty Ramos MD [facility] DR MATERNAL & [place] [address] 02/07/2024 9:00 AM EDT Appointment Radiology at [place] [phone] Simin Bay MD [facility] DR [place] [address] 02/07/2024 10:15 AM EDT Routine Obstetrics and Gynecology at [address]1000 Linda Diaz MD [facility] [place] [address] 03/12/2024 10:45 AM EST Office [place] [address] James Barth DO [facility] [place] [address] 05/23/2024 Hospital Encounter Birthing [facility] [place] [address] Maite Malloy MD [facility] [place] [address] documented as of this encounter Visit Diagnoses Not on filedocumented in this encounter Care Teams Options Advisor Relationship Specialty Start Date End Date Valencia Adhikari APRN [address] [place] [address] PCP - General 04/21/14 07/04/23 documented as of this encounter
--- OUTSIDE RECORDS SUMMARY | 2024-01-23 17:55 | XMS_ITS | Encounter Summary ---
Author Organization [facility] Address [facility] [place] [address] Care Team Providers Care Patent Leather Sorter Name Role Phone Valencia Adhikari APRN Primary Care Provider [phone] Encounter Details Date Type Department Care Team (Latest Contact Info) Description 06/14/2020 10:30 AM EST TH Visit (TeleHealth) Psychiatry [place] [address] Crispin Fuller MD [facility] [place] [address] Unspecified mood (affective) disorder Social History Tobacco [...] Attendee(s): Patient This patient was seen with sorting and folding supervisor Dr. Awad. See their note for confirmatory and/or revisionarydocumentation. Andree Hummel gave permission for and was seen for today's appointment with a Telehealth visit. During this visit they were located in [place]. nAdree Hummel is aware that for any urgent matter they can call [phone]. Chief Complaint: a lot has been going [...] cats and a dog. 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 Vitals (24hr Range): No data found. Musculoskeletal System: normal gait and balance, ambulates independently and no atrophy Mental Status Exam: ?? Appearance: age appropriate and casually dressed, pink hair ?? Behavior: cooperative with the interview and calm ?? Speech: normal pitch, normal volume, normal rate and normal rhythm ?? Language: fluent in malagasy ?? Mood: better ?? Affect: constricted ?? [...] PHYSICIAN INVOLVEMENT Location: Adult Psychiatry Medication Clinic, [address] Attending Physician: Jessica Awad MD Resident [...] 01/24/2024 1:00 PM EDT Appointment Radiology at [place] [address] Walt Bay MD [facility] OBSTETRICS [place] [address] 01/24/2024 2:00 PM EDT Routine Obstetrics and Gynecology at [place] [address] Taty Ramos MD [facility] DR MATERNAL & [place] [address] 02/07/2024 9:00 AM EDT Appointment Radiology at [place] [address] Walt Bay MD [facility] DR OBSTETRICS [place] [address] 02/07/2024 10:15 AM EDT Routine Obstetrics and Gynecology at [place] [address] Linda Diaz MD [facility] DR MATERNAL [place] [address] 03/12/2024 10:45 AM EST Office Visit Endocrinology at [address] James Barth DO [facility] [place] [address] 05/23/2024 Hospital En[place] [address] Maite Malloy MD [facility] DR OBSTETRICS [place] [address] documented as of this encounter Visit Diagnoses Diagnosis Unspecified mood (affective) disorder documented in this encounter Care Teams Patent Leather Sorter Relationship Specialty Start Date End Date Valencia Adhikari APRN [address] [place] [address] PCP - General 04/21/14 07/04/23 documented as of this encounter
--- OUTSIDE RECORDS SUMMARY | 2024-01-23 17:55 | XMS_ITS | Encounter Summary ---
Author Organization [facility] Address [facility] [place] [address] Care Team Providers Care Laborer Adjustable Steel Joist Name Role Phone Valencia Adhikari APRN Primary Care Provider [phone] Encounter Details Date Type Department Care Team (Latest Contact Info) Description 03/21/2021 11:00 AM EST TH Visit (TeleHealth) Psychiatry [place] [address] Lisa Dickens, PhD [facility] [place] [address] Unspecified mood (affective) disorder; Borderline personality disorder [...] EST INDIVIDUAL THERAPY PROGRESS NOTE CPT CODE 06948 LOCATION: Telehealth. Toshaaaron Hummel gave permission for and was seen for today's appointment with a Telehealth visit. During this visit she was located in her apartment in [place], [place]. Andree Cespedesiams is aware that for any urgent matter she can call [phone]. SESSION DURATION: 40 minutes ATTENDEES: Patient PRIMARY [...] 01/24/2024 1:00 PM EDT Appointment Radiology at [place] [phone] Simin Bay MD [facility] DR OBSTETRICS [place] [address] 01/24/2024 2:00 PM EDT Routine Obstetrics and Gynecology at [place] [phone] Taty Ramos MD [facility] DR MATERNAL [place] [address] 02/07/2024 9:00 AM EDT Appointment Radiology at [place] [phone] Simin Bay MD [facility] DR OBSTETRICS [place] [address] 02/07/2024 10:15 AM EDT Routine Obstetrics and Gynecology at [place] [phone] Linda Diaz MD [facility] [place] [address] 03/12/2024 10:45 AM EST Office Visit [place] [address] James Barth DO [facility] [place] [address] 05/23/2024 [place] [address] Maite Malloy MD [facility] OBSTETRICS [place] [address] documented as of this encounter Visit Diagnoses Diagnosis Unspecified mood (affective) disorder Borderline personality disorder documented in this encounter Care Teams Laborer Adjustable Steel Joist Relationship Specialty Start Date End Date Valencia Adhikari APRN [address] [place] [address] PCP - General 04/21/14 07/04/23 documented as of this encounter
--- OUTSIDE RECORDS SUMMARY | 2024-01-23 17:55 | XMS_ITS | Encounter Summary ---
Author Organization Formerly [facility] Address [facility] [place] [address] Care Team Providers Care Air Conditioning Sheet Metal Installer Name Role Phone OnofreMarilyn pittshrryan Barton [place] Primary Care Provider [phone] [phone] Reason for Visit * Reason Onset Date Comments Medication Refill 2020 Encounter Details Date Type Department Care Team (Late st Contact Info) Description 2020 Refill Psychiatry [place] [address] Crispin Fuller MD [facility] [place] [address] Anxiety Social History Tobacco Use Types Packs/Day [...] 01/24/2024 1:00 PM [place] [address] Walt Bay MD [facility] [place] [address] 01/24/2024 2:00 PM EDT Routine Obstetrics and Gynecology at [address] Taty Ramos MD [facility] DR MATERNAL & [place] [address] 02/07/2024 9:00 AM EDT Appointment Radiology at [place] [address] Walt Bay MD [facility] DR [place]ST[place] [address] 02/07/2024 10:15 AM EDT Routine Obstetrics and Gynecology at [address] Linda Diaz MD [facility] [place] [address] 03/12/2024 10:45 AM EST Office Visit Endocrinology at [place] [address] James Barth DO [facility] [place] [address] 05/23/2024 [place] [address] Maite Malloy MD [facility] DR OBSTET[place] [address] documented as of this encounter Visit Diagnoses Diagnosis Anxiety Anxiety state, unspecified documented in this encounter Care Teams Air Conditioning Sheet Metal Installer Relationship Specialty Start Date End Date Valencia Adhikari APRN [address] [place] [address] PCP - General 04/21/14 07/04/23 documented as of this encounter
--- OUTSIDE RECORDS SUMMARY | 2024-01-23 17:55 | XMS_ITS | Encounter Summary ---
Author Organization [facility] Address [facility] [place] [address] Care Team Providers Care Reel Hooker Name Role Phone OnofreValencia pitts Oralia [place] Primary Care Provider [phone] [phone] Encounter Details Date Type Department Care Team (Late st Contact Info) Description 07/16/2019 Orders Only Psychiatry [place] [phone] Argelia Mccray APRN [facility] [place] [address] Anxiety Social History Tobacco Use Types Packs/Day [...] 01/24/2024 1:00 PM EDT [place] [address] Walt Bay MD [facility] OBSTETRICS [place] [address] 01/24/2024 2:00 PM EDT Routine Obstetrics and Gynecology at [place] [address] Taty Ramos MD [facility] MATERNAL & [place] [address] 02/07/2024 9:00 AM EDT Appointment Radiology at [place] [address] Walt Bay MD [facility] DR OBSTETRICS [place] [address] 02/07/2024 10:15 AM EDT Routine Obstetrics and Gynecology at [address] Linda Diaz MD [facility] [place] [address] 03/12/2024 10:45 AM EST Office Visit Endocrinology at [place] [address] James Barth DO [facility] [place] [address] 05/23/2024 [place] [address] Maite Malloy MD [facility] DR OBSTETRICS [place] [address] documented as of this encounter Visit Diagnoses Diagnosis Anxiety Anxiety state, unspecified documented in this encounter Care Teams Reel Hooker Relationship Specialty Start Date End Date Valencia Adhikari APRN [address] [place] [address] PCP - General 04/21/14 07/04/23 documented as of this encounter
--- OUTSIDE RECORDS SUMMARY | 2024-01-23 17:55 | XMS_ITS | Encounter Summary ---
Author Organization [facility] [place] [address] Care Team Providers Care Land Surveyor Assistant Name Role Phone Valencia Adhikari APRN Primary Care Provider [phone] [phone] Reason for Visit * Reason Comments Establish Care Encounter Details Date Type Department Care Team (Late st Contact Info) Description 08/04/2020 10:00 AM EDT Office Visit Obstetrics [place] [address] Malena Hernandez APRN [facility] [place] [address] Encounter for IUD removal (Primary Dx); Screening [...] MONITORING, SETUP performed by JUAN ESPARZA at [facility] MAIN OR ??? PRO THYROIDECTOMY, IVA STAFFORD NECK SURG 03/22/2011 THYROIDECTOMY, FOR MALIGNANCY, LIMITED NECK DISSECTION performed by JUAN ESPARZA at [facility] MAIN OR ??? TONSILLECTOMY 2010 [...] 01/24/2024 1:00 PM EDT Appointment [place] [address] Walt Bay MD [facility] DR OBST[place] [address] 01/24/2024 2:00 PM EDT Routine Obstetrics [place] [address] Taty Ramos MD [facility] MATERNAL [place] [address] 02/07/2024 9:00 AM EDT Appointment [place] [address] Walt Bay MD [facility] [place] [address] 02/07/2024 10:15 AM EDT Routine Obstetrics [place] [address] Linda Diaz MD [facility] [place] [address] 03/12/2024 10:45 AM EST Office Visit [place] [address] James Barth DO [facility] [place] [address] 05/23/2024 Hospital [place] [address] Maite Malloy MD [facility] DR OBST[place] [address] documented as of this encounter Procedures Procedure Name Priority Date/Time Associated Diagnosis Comments CT/NG PCR Routine 08/04/2020 10:25 AM EDT SAW HANDLE ASSEMBLER CYTOLOGY INTERPRETATION Routine 08/04/2020 10:25 AM EDT SAW HANDLE ASSEMBLER CYTOLOGY FINAL REPORT Routine 08/04/2020 10:25 AM EDT CYTOPATHOLOGY GYNECOLOGICAL Routine 08/04/2020 10:25 AM EDT Screening for cervical cancer documented in this encounter Results * SAW HANDLE ASSEMBLER Cytology Interpretation (08/04/2020 10:25 AM EDT) Repossessor Cytology Interpretation [facility] Comment:Repossessor Cytology Final R eport Endocervical Component Present [facility] AP Specimen 08/04/2020 10:2 5 AM EDT 08/16/2020 12:02 PM EDT Malena Hernandez MACROECONOMICS PROFESSOR PATHOLOGY/CYT OLOGY ORDERABLES [facility] [place] [address] * Repossessor Cytology Final Report (08/04/2020 10:25 AM EDT) Repossessor Cytology Final Report [id number] ? Location: 5L The signing pathologist has (i) examined the relevant preparation(s) for the specimen(s) and (ii) rendered or confirmed the diagnosis(es). . ? Repossessor Final DIAGNOSIS Infection and/or Reactive Repair Process Note: Reactive changes are present in the epithelial cells (benign cellular changes). This Pap test is negative for intraepithelial lesion or malignancy. (NILM) For consensus guidelines for the management of cervical cancer screening test results, please see: ?? http://www.asccp.o rg . Electronically signed by: ?Lori LIMA, Reji Guzman Verified: ??08/16/2020 12:02 ??Cytopathologist Performed at: ??-[facility] Dept. of Pathology, [place], [place] HPV RESULTS HPV testing either not indicated or not requested by clinician. STATEMENT OF ADEQUACY Specimen submitted is satisfactory. Endocervical component present. CLINICAL INFORMATION HPV Option: ?Reflex HPV CT/NG Option: ?Yes Preparation: ? Liquid based Pap Specimen Source: ? Cervical/Endocervi shira LMP: ? IUD Hysterectomy: ?No : ?No : ?No I.U.D.: ?No Pelvic Radiation: ?No Hist Abnl Pap/Biopsy: ?No Prior SAW HANDLE ASSEMBLER Therapy: ? No Hist of HPV Vaccine: ? No ICD Diagnosis: ? Z12.4 Encounter for screening for malignant neoplasm of cervix Clinical Data, Significant Therapy and Clinical Impression ?? : ?_ This Pap Test has been evaluated with the assistance of the [employer] Pap Test Imaging System. Note: The Pap test is a screening test for cervical cancer with an inherent false-negative rate dependent upon several variables. For further information please contact the [facility] Laboratory. Reference: Rosy ORTIZ. Medical Device Sales Consultant of Pap Smear Results. In: Chelsey BS, Joshua HH, ed. The Pap Smear. [place]: Lázaro, 2002: 71-77. [facility] 08/04/2020 10:2 5 AM EDT Malena Hernandez APRN PATHOLOGY/CYT OLOGY ORDERABLES [facility] [place] [address] * CT/NG PCR (08/04/2020 10:25 AM EDT) Chlamydia Gene Amp Negative Negative [facility] Comment: This assay was performed in the [facility] Clinical Genomics and Advanced Technology Laboratory using the melly?? CT/NG v2.0 Test ([employer] The melly?? CT/NG v2.0 Test [...] asymptomatic individuals. GC Gene Amp Negative Negative [facility] Comment: This assay was performed in the [facility] Clinical Genomics and Advanced Technology Laboratory using the melly?? CT/NG v2.0 Test ([employer] The melly?? CT/NG v2.0 Test [...] Comment Spec In Lab Malena Hernandez APRN MOLECULAR ORD ERABLES Performing Organization Address City/[facility]/ZIP Co de Phone Number [facility] [place] [address] * Cytopathology Gynecological (08/04/2020 10:25 AM EDT) AP Specimen 08/04/2020 10:2 5 AM EDT 08/04/2020 10:25 AM EDT Narrative [facility] - 08/04/2020 10:25 AM EDT Specimen requisition ordered. ??Separate Pathology report to follow Malena Hernandez APRN PATHOLOGY/CYT OLOGY ORDERABLES [facility] [place] [address] documented in this encounter Visit Diagnoses Diagnosis Encounter for IUD removal- Primary Encounter for removal of intrauterine contraceptive device Screening for cervical cancer Screening for malignant neoplasm of the cervix IUD (intrauterine device) in place Presence of intrauterine contraceptive device documented in this encounter Care Teams Land Surveyor Assistant Relationship Specialty Start Date End Date Valencia Adhikari APRN [address] [place] [address] PCP - General 04/21/14 07/04/23 documented as of this encounter
--- OUTSIDE RECORDS SUMMARY | 2024-01-23 17:55 | XMS_ITS | Encounter Summary ---
Author Organization [facility] Address [facility] [place] [address] Care Team Providers Care Rotary Peel Oven Tender Name Role Phone OnofreValencia pitts Oralia [place] Primary Care Provider [phone] [phone] Encounter Details Date Type Department Care Team (Late st Contact Info) Description 07/21/2019 Orders Only Psychiatry [place] [address] Argelia Mccray APRN [facility] [place] [address] Depression, unspecified depression type; Anxiety Social History [...] 01/24/2024 1:00 PM EDT Appointment [place] [address] Walt Bay MD [facility] DR [place] [address] 01/24/2024 2:00 PM EDT Routine Obstetrics and Gynecology at [place] [address] Taty Ramos MD [facility] DR MATERNAL & [place] [address] 02/07/2024 9:00 AM EDT Appointment Radiology at [place] [address] Walt Bay MD [facility] DR OBSTET[place]ICS [place] [address] 02/07/2024 10:15 AM EDT Routine Obstetrics and Gynecology at [address] Linda Diaz MD [facility] [place] [address] 03/12/2024 10:45 AM EST Office Visit Endocrinology at [place] [address] James Barth DO [facility] [place] [address] 05/23/2024 Hospital Encounter Birthing [place] [phone] Maite Malloy MD [facility] DR [place]ST[place] [address] documented as of this encounter Visit Diagnoses Diagnosis Depression, unspecified depression type Anxiety Anxiety state, unspecified documented in this encounter Care Teams Rotary Peel Oven Tender Relationship Specialty Start Date End Date Valencia Adhikari APRN [address] [place] [address] PCP - General 04/21/14 07/04/23 documented as of this encounter
--- OUTSIDE RECORDS SUMMARY | 2024-01-23 17:55 | XMS_ITS | Encounter Summary ---
Author Organization Formerly [facility] Address [facility] [place] [address] Care Team Providers Care Category Development Analyst Name Role Phone Valencia Adhikari APRN Primary Care Provider [phone] [phone] Reason for Visit * Consultation (Routine) - Closed Specialty Diagnoses / Procedures Referred By Lamont riggins Referred To Contact Endocrinology Diagnoses Thyroiditis, unspecified Valencia Adhikari APRN [address] [place] [address] [facility] [place] Endocrinology [address] [place] [phone] Referral ID Status Reason Start Date Expiration Date V isits Requested Visits Authorized [id number] Closed Consult, Test & Treat Connection [facility] PCP Updated and/or Approved 01/17/2021 01/17/2022 12 12 Encounter Details Date Type Department Care Team (Latest Contact Info) Description 04/26/2021 11:00 AM EST TH Visit (TeleHealth) [place] [address] Shelli Kearns MD [facility] [place] [address] Obinna's thyroiditis; Hypothyroidism, postsurgical; Vitamin D insufficiency; [...] lesions: The specimen is serially sectioned and [facility] Provider: JUAN ESPARZA Pt. Name: ALONSO HUMMEL Acc #: [id number] Pt. Col Date: 03/22/2011 /Sex: 1990,(20 years),Female Rec Date: 03/22/2011 LOC: [facility] SURGICAL PATHOLOGY demonstrates diffuse, tam-yellow, nodular proliferations in both lobes and isthmus. Contour/Capsule: The capsule of the thyroid appears to abut these nodules and is somewhat distortedby them. Sections/Processing: (1-20) serial sections of right lobe from superior to inferior; (21-40) left lobe from superior to inferior including enlarged parathyroid; (41-44) volunteer patient representative sections of isthmus; (45-50) serial sections [...] from outside and recheck lab soon at [facility] lab. If TSH remains high, [...] Lab: check lab today or soon at [facility] for TSH, FT4, 25vitD, B12, iron/TIBC. Orders Placed This Encounter Procedures TSH T4, free Vitamin D, 25-Hydroxy Vitamin B12 Iron and TIBC 4. RTC: 3-4 months by VDO and will check TSH and FT4 monthly (standing order) during the interim until stable. Addendum: Results for LOUISEVishalFRANK IDAURVASHI Godoy ( ) as of 04/26/2021 Ref. [...] clinic at the request of Dr.Kathryn Oralia Adhikari, [place] for: hypothyroidism with high TSH 127 in [...] ?The specimen is serially sectioned and ? [facility] ? Provider: ?? JUAN ESPARZA Pt. Name: ?? ALONSO HUMMEL ? E ? Acc #: ?[id number] ?Pt. ? Col Date: ?? 03/22/2011 ? [...] outside lately prior to consultation Results for JOANNAWILLIAMS PREETHI Godoy ( ) as of 04/26/2021 Ref. [...] from outside and recheck lab soon at [facility] lab. She feels tired all [...] Not on file Occupational History ??? 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 Smoking status: Current Every [...] (A29). ? 4. Twelve benign lymph nodes (0/12). ? 5. Benign thymic tissue (intrathyroidal and [...] from outside and recheck lab soon at [facility] lab. If TSH remains high, [...] Lab: check lab today or soon at [facility] for TSH, FT4, 25vitD, B12, [...] 01/24/2024 1:00 PM [place] [address] Walt Bay MD [facility] [place] [address] 01/24/2024 2:00 PM EDT Routine Obstetrics [place] [address] Taty Ramos MD [facility] MATERNAL & [place] [address] 02/07/2024 9:00 AM [place] [address] Walt Bay MD [facility] DR OBSTETRICS [place] [address] 02/07/2024 10:15 AM EDT Routine Obstetrics [place] [address] Linda Diaz MD [facility] [place] [address] 03/12/2024 10:45 AM EST Office [place] [address] James Barth DO [facility] [place] [address] 05/23/2024 Hospital Encounter Birthing [place] [phone] Maite Malloy MD [facility] DR OBSTET[place] [address] documented as of this encounter Visit Diagnoses Diagnosis Obinna's thyroiditis Chronic lymphocytic thyroiditis Hypothyroidism, postsurgical Postsurgical hypothyroidism Vitamin D insufficiency Unspecified vitamin D deficiency Chronic fatigue Other malaise and fatigue documented in this encounter Care Teams Category Development Analyst Relationship Specialty Start Date End Date Valencia Adhikari APRN [address] [place] [address] PCP - General 04/21/14 07/04/23 documented as of this encounter
--- OUTSIDE RECORDS SUMMARY | 2024-01-23 17:55 | XMS_ITS | Encounter Summary ---
Author Organization [facility] Address [facility] [place] [address] Care Team Providers Care Nurse Examiner Name Role Phone OnofreValencia pitts [place] Primary Care Provider [phone] [phone] Reason for Visit * Reason Onset Date Comments Medication Refill 04/22/2020 Encounter Details Date Type Department Care Team (Late st Contact Info) Description 04/22/2020 Refill Psychiatry [place] [address] Crispin Fuller MD [facility] [place] [address] Depression, unspecified depression type; Anxiety Social History [...] 01/24/2024 1:00 PM EDT Appointment [place] [address] Walt Bay MD [facility] OBSTET[place] [address] 01/24/2024 2:00 PM EDT Routine Obstetrics and Gynecology at [address] Taty Ramos MD [facility] DR MATERNAL & [place] [address] 02/07/2024 9:00 AM EDT Appointment Radiology at [place] [address] Walt Bay MD [facility] DR OBSTETRICS [place] [address] 02/07/2024 10:15 AM EDT Routine Obstetrics and Gynecology at [address] Linda Diaz MD [facility] [place] [address] 03/12/2024 10:45 AM EST Office Visit Endocrinology at [address] James Barth DO [facility] [place] [address] 05/23/2024 Hospital [place] [address] Maite Malloy MD [facility] DR OBSTETRICS [place] [address] documented as of this encounter Visit Diagnoses Diagnosis Depression, unspecified depression type Anxiety Anxiety state, unspecified documented in this encounter Care Teams Nurse Examiner Relationship Specialty Start Date End Date Valencia Adhikari APRN [address] [place] [address] PCP - General 04/21/14 07/04/23 documented as of this encounter
--- OUTSIDE RECORDS SUMMARY | 2024-01-23 17:55 | XMS_ITS | Encounter Summary ---
Author Organization [facility] [place] [address] Care Team Providers Care Toys And Games Hand Finisher Name Role Phone Valencia Adhikari APRN Primary Care Provider [phone] [phone] Encounter Details Date Type Department Care Team (Latest Contact Info) Description 11/27/2019 8:30 AM EDT TH Visit (TeleHealth) Psychiatry [place] [address] Argelia Mccray APRN [facility] [place] [address] Depression, unspecified depression type; Anxiety Social History [...] abnormalities Social History: 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 Language: fluent in east timorese ?? Mood: anxious ?? Affect: mood-congruent ?? [...] HA1C Vit Lvls: No results found for: [id number], SFOLATE Tox: No results found for: ETHANOL, ACTMNPHEN, SALICYLATE, LEAD No results found for: UDAUSCREEN Rx Lvls: Lamotrigine Lvl Date Value Ref Range Status 07/04/2018 3.2 2.5 - 15.0 mcg/mL Final Comment: ADDITIONAL INFORMATION This test was developed and its performance characteristics determined by [facility] in a manner consistent with CLIA requirements. This test has not been cleared or approved by the U.S. Food and Drug Administration. Test Performed by: [facility] [place] [address] Formulation and Assessment: Overall Formulation: Andree UnderwoodWilliams is a 29 y.o. Female depression (likely [...] been searching for a therapist and this race and sports book writer willsend her additional resources. We also discussed [...] 01/24/2024 1:00 PM EDT Appointment Radiology at [place] [phone] Simin Bay MD [facility] [place] [address] 01/24/2024 2:00 PM EDT Routine Obstetrics and Gynecology at [place] [phone] Taty Ramos MD [facility] MATERNAL & [place] [address] 02/07/2024 9:00 AM EDT Appointment Radiology at [place] [phone] Simin Bay MD [facility] OBSTET[place] [address] 02/07/2024 10:15 AM EDT Routine Obstetrics and Gynecology at [address] Linda Diaz MD [facility] MATERNAL [place] [address] 03/12/2024 10:45 AM EST Office Visit Endocrinology at [address] James Barth DO [facility] ENDOCRINOLOG[place] [address] 05/23/2024 Hospital Encounter Birthing [place] [phone] Maite Malloy MD [facility] DR OBSTETRICS [place] [address] documented as of this encounter Visit Diagnoses Diagnosis Depression, unspecified depression type Anxiety Anxiety state, unspecified documented in this encounter Care Teams Toys And Games Hand Finisher Relationship Specialty Start Date End Date Valencia Adhikari APRN [address] [place] [address] PCP - General 04/21/14 07/04/23 documented as of this encounter
--- OUTSIDE RECORDS SUMMARY | 2024-01-23 17:55 | XMS_ITS | Encounter Summary ---
Author Organization [facility] Address [facility] [place] [address] Care Team Providers Care Hosiery Pairer Name Role Phone OnofreValencia pitts Oralia SLADE Primary Care Provider +1 [phone] Encounter Details Date Type Department Care Team (Late st Contact Info) Description 10/03/2018 Orders Only Psychiatry [place] [phone] Argelia Mccray APRN [facility] [place] [address] Anxiety Social History Tobacco Use Types Packs/Day [...] 01/24/2024 1:00 PM EDT [place] [address] Walt Bay MD [facility] OBSTET[place] [address] 01/24/2024 2:00 PM EDT Routine Obstetrics and Gynecology at [place] [address] Taty Ramos MD [facility] MATERNAL & [place] [address] 02/07/2024 9:00 AM EDT Appointment Radiology at [place] [address] Walt Bay MD [facility] DR OBSTETRICS [place] [address] 02/07/2024 10:15 AM EDT Routine Obstetrics and Gynecology at [address] Linda Diaz MD [facility] [place] [address] 03/12/2024 10:45 AM EST Office Visit Endocrinology at [place] [address] James Barth DO [facility] [place] [address] 05/23/2024 [place] [address] Maite Malloy MD [facility] DR OBSTETRICS [place] [address] documented as of this encounter Visit Diagnoses Diagnosis Anxiety Anxiety state, unspecified documented in this encounter Care Teams Hosiery Pairer Relationship Specialty Start Date End Date Valencia Adhikari APRN [address] [place] [address] PCP - General 04/21/14 07/04/23 documented as of this encounter
--- OUTSIDE RECORDS SUMMARY | 2024-01-23 17:56 | XMS_ITS | Encounter Summary ---
Author Organization [facility] [place] [address] Care Team Providers Care Bark Fitter Name Role Phone Valencia Adhikari APRN Primary Care Provider [phone] [phone] Encounter Details Date Type Department Care Team (Late st Contact Info) Description 10/04/2017 9:00 AM EDT Office Visit Psychiatry [place] [address] Argelia Mccray CAST ASSOCIATE [facility] [place] [address] Bipolar affective disorder, remission status unspecified; Depression, [...] to appointment) Attendee(s): Client HISTORY Chief Complaint: Andree Hummel is a [...] and normal rhythm ?? Language: fluent in albanian ?? Mood: Better ?? Affect: bright and [...] previously discussed that I am available via my-eDH, but that I do not always check this daily, and should not be used in case of emergency. Argelia Mccray APRN 10/04/2017 documented in this encounter Plan of Treatment Upcoming Encounters Date Type Department Care Team (Late st Contact Info) Description 01/24/2024 1:00 PM [place] [phone] Simin Bay MD [facility] OBSTET[place] [address] 01/24/2024 2:00 PM EDT Routine Obstetrics and Gynecology at [address] Taty Ramos MD [facility] DR MATERNAL & [place] [address] 02/07/2024 9:00 AM EDT Appointment Radiology at [address] Simin Bay MD [facility] OBSTET[place] [address] 02/07/2024 10:15 AM EDT Routine Obstetrics [place] [address] Linda Diaz MD [facility] [place] [address] 03/12/2024 10:45 AM EST Office [place] [address] James Barth DO [facility] [place] [address] 05/23/2024 Hospital Encounter Birthing [place] [phone] Maite Malloy MD [facility] DR OBSTETRICS [place] [address] documented as of this encounter Procedures Procedure [...] disorder, remission status unspecified COMPREHENSIVE METABOLIC PANEL Routine 10/04/2017 10:08 AM EDT Bipolar affective disorder, remission status unspecified documented in this encounter Results * Differential, Automated (10/04/2017 10:08 AM EDT) Neutrophil % 71.5 % [facility] Neutrophil Absolute 5.34 1.70 - 6.10 x10(3)/[facility] LAB[facility] Lymph % 16.6 % [facility] Lymphocytes Abs 1.2 0.9 - 3.2 x10(3)/[facility] Monocyte % 10.2 % [facility] Monocyte Abs 0.8 0.3 - 0.9 x10(3)/[facility] Eos % 0.8 % [facility] Eosinophils Abs 0.1 0.0 - 0.4 x10(3)/[facility]OR[facility] Basophil % 0.5 % [facility] Baso Absolute 0.0 0.0 - 0.1 x10(3)/[facility] LAB[facility] Immature Gran % 0.40 % [facility] Comment: Immature granulocytes(IG's)percentage and absolute count will include metamyelocytes, myelocytes, and promyelocytes. Blood smears from CBCs yielding IG's will be scanned manually for concordance. If this scan disagrees with the automated IG or if promyelocytes are noted, a manual differential will be performed. Immature Gran Absolute 0.03 0.00 - 0.04 x10(3)/[facility] LAB[facility] Blood specimen (specimen) 10/04/2017 10:08 AM EDT 10/04/2017 10:14 AM EDT Narrative Resulting Agency Comment Spec In Lab Argelia Mccray APRN HEMATOLOGY [place] [facility] [place] [address] * (ABNORMAL) Hemogram (10/04/2017 10:08 AM EDT) White Blood Cell 7.5 4.0 - 9.5 x10(3)/[facility] LABORAT[facility] Red Blood Cell 4.03 4.00 - 5.21 x10(6)/[facility] Hemoglobin 13.6 11.7 - 15.5 gm/dL [facility] Hematocrit 40.0 35.7 - 45.8 % [facility] Mean Cell Volume 99.3(H) 82.6 - 94.4 fL [facility] Mean Cell Hemoglobin 33.7(H) 27.1 - 32.0 pg [facility] Mean Cell Hemoglobin Concentration 34.0 31.7 - 35.0 gm/dL [facility] Platelet 198 145 - 357 x10(3)/[facility] RDW Standard Deviation 47.5(H) 37.0 - 46.0 fL [facility] RDW coefficient of variation 12.9 11.5 - 14.1 % [facility] Mean Platelet Volume 11.5 7.6 - 12.9 fL [facility] NRBC% auto 0.0 % [facility] NRBC Absolute 0.000 0.000 - 0.000 x10(3)/mc L [facility] Blood specimen (specimen) 10/04/2017 10:08 AM EDT 10/04/2017 10:14 AM EDT Narrative Resulting Agency Comment Spec In Lab Argelia Mccray APRN HEMATOLOGY [facility] [place] [address] * (ABNORMAL) Comprehensive metabolic panel (non-fasting) (10/04/2017 10:08 AM EDT) Glucose 94 65 - 199 mg/dL [facility] Comment:Diabetes: >=200 mg/d L plus symptoms Blood Urea Nitrogen 7(L) 8 - 18 mg/dL [facility] Creatinine 0.74 0.70 - 1.20 mg/dL [facility] Sodium 142 135 - 145 mmol/L [facility] Potassium 4.2 3.5 - 5.0 mmol/L [facility] Comment: Please note: ??Patients with WBC >100,000 may have falsely elevated Potassium levels. ??For accurate Potassium quantification in these patients send serum separator tube (gold top) for subsequent determinations. ??Contact the Clinical Chemistry Laboratory if there are any questions. Chloride 107 98 - 107 mmol/L [facility] Carbon Dioxide 22 22 - 31 mmol/L [facility] Anion Gap 13 5 - 15 mmol/L [facility] Calcium 9.3 8.5 - 10.5 mg/dL [facility] Protein, Total 6.6 6.1 - 8.0 gm/dL [facility] Albumin 4.2 3.2 - 5.2 gm/dL [facility] Aspartate Aminotransferase 14 0 - 30 unit/L [facility] Alanine Aminotransferase 11 0 - 30 unit/L [facility] Alkaline Phosphatase 67 40 - 104 unit/L [facility] Bilirubin, Total 0.9 0.2 - 1.3 mg/dL [facility] Est Glomerular Filtration Rate 112 >=60 mL/min/1. 73 m?? [facility] Comment: The eGFR was calculated using the CKD-EPI equation. As with all creatinine based estimates of kidney function, eGFR values calculated with the CKD-EPI equation are not accurate in patients with acute kidney failure, extremes of body mass or the acutely ill. http://[employer]/IMImobilenkdep http://[employer]/DHMCnkf eGFR 130 >=60 mL/min/1. 73 m?? [facility] Comment: The eGFR was calculated using the CKD-EPI equation. As with all creatinine based estimates of kidney function, eGFR values calculated with the CKD-EPI equation are not accurate in patients with acute kidney failure, extremes of body mass or the acutely ill. http://[employer]/IMImobilenkdep http://[employer]/DHMCnkf Blood specimen (specimen) 10/04/2017 10:08 AM EDT 10/04/2017 10:14 AM EDT Narrative Resulting Agency Comment Spec In Lab Argelia Mccray APRN CHEMISTRY ORDER AMANDA [facility] [place] [address] * (ABNORMAL) Lamotrigine Lvl (10/04/2017 10:08 AM EDT) Lamotrigine Lvl (AUGUST) 1.4(L) 2.5 - 15.0 mcg/mL [facility] Comment: ADDITIONAL INFORMATION This test was developed and its performance characteristics determined by [facility] in a manner consistent with CLIA requirements. This test has not been cleared or approved by the U.S. Food and Drug Administration. Test Performed by: [facility] [address] [place] [address] Blood specimen (specimen) 10/04/2017 10:08 AM EDT 10/04/2017 11:55 AM EDT Narrative Resulting Agency Comment Spec In Lab Argelia Mccray [facility] SEND OUT OR DERABLES Performing Organization Address City/[facility]/ZIP Co de Phone Number [facility] [place] [address] * TSH (10/04/2017 10:08 AM EDT) Thyroid Stimulating Hormone 0.90 0.27 - 4.20 mlU/ML [facility] Blood specimen (specimen) 10/04/2017 10:08 AM EDT 10/04/2017 10:14 AM EDT Narrative Resulting Agency Comment Spec In Lab Argelia Mccray [place] CHEMISTRY ORDER AMANDA Performing Organization Address [facility]/ZIP Co de Phone Number [facility] [place] [address] * Thyroglobulin Antibody (10/04/2017 10:08 AM EDT) Thyroglob Ab <20.0 0.0 - 40.0 IU/mL [facility] Blood specimen (specimen) 10/04/2017 10:08 AM EDT 10/04/2017 1:15 PM EDT Narrative Resulting Agency Comment Spec In Lab Argelia Mccray [facility] SEND OUT OR DERABLES Performing Organization Address City/[facility]/ZIP Co de Phone Number [facility] [place] [address] * (ABNORMAL) T4, free (10/04/2017 10:08 AM EDT) Free T4 1.74(H) 0.93 - 1.70 ng/dL [facility] Blood specimen (specimen) 10/04/2017 10:08 AM EDT 10/04/2017 10:14 AM EDT Narrative Resulting Agency Comment Spec In Lab Argelia Mccray APRN CHEMISTRY ORDER AMANDA [facility] [place] [address] * T4 Total (10/04/2017 10:08 AM EDT) T4 Total 8.5 5.1 - 10.8 mcg/dL [facility] Comment: Reference Range: [place] Cord Blood: ??6.9-14.4 mcg/dL Females: ??7.2-14.2 mcg/dL Pediatric ranges: ??Interpret with caution-ranges have not been verified Blood specimen (specimen) 10/04/2017 10:08 AM EDT 10/04/2017 10:14 AM EDT Narrative Resulting Agency Comment Spec In Lab Argelia Mccray APRN CHEMISTRY ORDER AMANDA Performing Organization Address City/[facility]/ZIP Co de Phone Number [facility] [place] [address] * T3, free (10/04/2017 10:08 AM EDT) Free T3 3.8 2.0 - 4.4 pg/mL [facility] Blood specimen (specimen) 10/04/2017 10:08 AM EDT 10/04/2017 10:14 AM EDT Narrative Resulting Agency Comment Spec In Lab Argelia Mccray APRN CHEMISTRY ORDER AMANDA [facility] [place] [address] documented in this encounter Visit Diagnoses Diagnosis Bipolar affective disorder, remission status unspecified Depression, unspecified depression type Anxiety Anxiety state, unspecified documented in this encounter Care Teams Bark Fitter Relationship Specialty Start Date End Date Valencia Adhikari APRN [address] [place] [address] PCP - General 04/21/14 07/04/23 documented as of this encounter
--- OUTSIDE RECORDS SUMMARY | 2024-01-23 17:56 | XMS_ITS | Encounter Summary ---
[place] [address] Care Team Providers Care Stand Up Comedian Name Role Phone Valencia Adhikari APRN Primary Care Provider +1 [phone] Encounter Details Date Type Department Care Team (Late st Contact Info) Description 11/21/2017 Notes [place] [phone] Ambika Grande MSW Social History Tobacco Use [...] EDT CCM responded to call from pt's assistant attorney general with question about access to Pain Clinic treatments. CCM reviewed pt chart and noted that pt has not been seen by Pain Clinic and advised caller to have the IW call to make an appointment. documented in this encounter Plan of Treatment Upcoming Encounters Date Type Department Care Team (Late st Contact Info) Description 01/24/2024 1:00 PM EDT Appointment Radiology at [place] [address] Walt Bay MD [facility] OBSTETRICS AND [place] [address] 01/24/2024 2:00 PM EDT Routine Obstetrics and Gynecology at [place] [address] Taty Ramos MD [facility] MATERNAL & [place] [address] 02/07/2024 9:00 AM EDT Appointment Radiology at [place] [address] Walt Bay MD [facility] OBSTETRICS AND [place] [address] 02/07/2024 10:15 AM EDT Routine Obstetrics and Gynecology at [place] [address] Linda Diaz MD [facility] DR MATERNAL AND [place] [address] 03/12/2024 10:45 AM EST Office Visit Endocrinology at [place] [address] James Barth DO [facility] ENDOCRINOLOGY [place] [address] 05/23/2024 Hospital [place] [address] Maite Malloy MD [facility] OBSTETRICS AND [place] [address] documented as of this encounter Visit Diagnoses Not on filedocumented in this encounter Care Teams Stand Up Comedian Relationship Specialty Start Date End Date Valencia Adhikari, MANUFACTURING WORKER [address] [place] [address] PCP - General 04/21/14 07/04/23 documented as of this encounter
--- OUTSIDE RECORDS SUMMARY | 2024-01-23 17:56 | XMS_ITS | Encounter Summary ---
Author Organization [facility] Address [facility] [place] [address] Care Team Providers Care Bisque Kiln Drawer Name Role Phone OnofreValencia pitts Oralia SLADE Primary Care Provider +1 -[phone] Encounter Details Date Type Department Care Team (Late st Contact Info) Description 02/22/2018 Orders Only Psychiatry and [place] [address] Argelia Mccray APRN [facility] [place] [address] Depression, unspecified depression type; Anxiety Social History [...] 01/24/2024 1:00 PM EDT Appointment [place] [address] Walt Bay MD [facility] DR OBSTET[place] [address] 01/24/2024 2:00 PM EDT Routine Obstetrics and Gynecology at [place] [address] Taty Ramos MD [facility] DR MATERNAL & [place] [address] 02/07/2024 9:00 AM EDT Appointment Radiology at [place] [address] Walt Bay MD [facility] DR OBSTETRICS [place] [address] 02/07/2024 10:15 AM EDT Routine Obstetrics and Gynecology at [address] Linda Diaz MD [facility] [place] [address] 03/12/2024 10:45 AM EST Office Visit Endocrinology at [place] [address] James Barth DO [facility] [place] [address] 05/23/2024 Hospital Encounter Birthing [place] [phone] Maite Malloy MD [facility] DR OBSTETRICS [place] [address] documented as of this encounter Visit Diagnoses Diagnosis Depression, unspecified depression type Anxiety Anxiety state, unspecified documented in this encounter Care Teams Bisque Kiln Drawer Relationship Specialty Start Date End Date Valencia Adhikari APRN [address] [place] [address] PCP - General 04/21/14 07/04/23 documented as of this encounter
--- OUTSIDE RECORDS SUMMARY | 2024-01-23 17:56 | XMS_ITS | Encounter Summary ---
Author Organization [facility] Address [facility] [place] [address] Care Team Providers Care Cosmetic Sales Name Role Phone Valencia Adhikari APRN Primary Care Provider [phone] [phone] Reason for Visit * Reason Onset Date Comments Other 06/07/2017 Encounter Details Date Type Department Care Team (Late st Contact Info) Description 06/07/2017 Telephone Care Management [facility] [place] [phone] Carmina Marshall, DIE FITTER [facility] [place] [address] Other Social History Tobacco Use Types Packs/Day [...] Notes * Telephone Encounter - Carmina Marshall DIE FITTER - 06/07/2017 9:31 AM EST Images from the original note were not included. Pt was scheduled as a NW1 [facility] pt work up w/ on 06-05-17. Workers comp insurance is: [employer], DOI: 09-06-16, Employer: [employer]. assessment and tx plan recommendations are [...] with our office on an as-needed basis. [facility] was unable to attend this appt but will facilitate insurance's access to 's -20 note and wc form, in an effort to advocate for needed authorization for pain provider's tx recommendations. P: [facility] will be available for f/u intervention PRN. [facility] will request [facility] admin staff fax pain provider's 2-20 office note and wc form to: Jamin merchandise complaint adjuster, w/ goal to expedite insurance's PA for 's tx plan recommendations.. ?? documented in this encounter Plan of Treatment Upcoming Encounters Date Type Department Care Team (Late st Contact Info) Description 01/24/2024 1:00 PM EDT [place] [address] Simin Bay MD [facility] DR OBSTET[place] [address] 01/24/2024 2:00 PM EDT Routine Obstetrics and Gynecology at [place] [address] Taty Ramos MD [facility] DR MATERNAL & [place] [address] 02/07/2024 9:00 AM EDT Appointment Radiology at [place] [address] Simin Bay MD [facility] DR OBSTET[place]ICS [place] [address] 02/07/2024 10:15 AM EDT Routine Obstetrics and Gynecology at [place] [address] Linda Diaz MD [facility] [place] [address] 03/12/2024 10:45 AM EST Office Visit Endocrinology at [place] [address] James Barth DO [facility] [place] [address] 05/23/2024 Hospital [facility] [place] [address] Maite Malloy MD [facility] DR OBSTETRICS [place] [address] documented as of this encounter Visit Diagnoses Not on filedocumented in this encounter Care Teams Cosmetic Sales Relationship Specialty Start Date End Date Valencia Adhikari, [place] [address] [place] [address] PCP - General 04/21/14 07/04/23 documented as of this encounter
--- OUTSIDE RECORDS SUMMARY | 2024-01-23 17:56 | XMS_ITS | Encounter Summary ---
Author Organization [facility] [place] [address] Care Team Providers Care Test Lead Name Role Phone Valencia Adhikari APRN Primary Care Provider [phone] [phone] Encounter Details Date Type Department Care Team (Late st Contact Info) Description 12/13/2017 8:30 AM EDT Office Visit Psychiatry and [place] [address] Argelia Mccray TUBING MACHINE TENDER [facility] [place] [address] Depression, unspecified depression type; Anxiety; Bipolar affective [...] and normal rhythm ?? Language: fluent in chinese ?? Mood: Anxious ?? Affect: mood-congruent and [...] disorder who continues to be seen at [facility] for medication management. Andree continues [...] abuse) or ifrecords are subpoenaed by a commercial kitchen service technician. We also discussed that notes can be read by other clinicians andstaff involved in the patient's care. Argelia Mccray APRN 12/13/2017 documented in this encounter Plan of Treatment Upcoming Encounters Date Type Department Care Team (Late st Contact Info) Description 01/24/2024 1:00 PM EDT Appointment [place] [address] Simin Bay MD [facility] OBSTETRICS [place] [address] 01/24/2024 2:00 PM EDT Routine Obstetrics and Gynecology at [address] Taty Ramos MD [facility] MATERNAL & [place] [address] 02/07/2024 9:00 AM EDT Appointment Radiology at [place] [address] Simin Bay MD [facility] OBSTETRICS [place] [address] 02/07/2024 10:15 AM EDT Routine Obstetrics and Gynecology at [address] Linda Diaz MD [facility] [place] [address] 03/12/2024 10:45 AM EST Office Visit Endocrinology at [place] [address] James Barth DO [facility] [place] [address] 05/23/2024 [place] [address] Maite Malloy MD [facility] OBSTETRICS [place] [address] documented as of this encounter Visit Diagnoses Diagnosis Depression, unspecified depression type Anxiety Anxiety state, unspecified Bipolar affective disorder, remission status unspecified documented in this encounter Care Teams Test Lead Relationship Specialty Start Date End Date Valencia Adhikari APRN [address] [place] [address] PCP - General 04/21/14 07/04/23 documented as of this encounter
--- OUTSIDE RECORDS SUMMARY | 2024-01-23 17:56 | XMS_ITS | Encounter Summary ---
Author Organization [facility] Address [facility] [place] [address] Care Team Providers Care Clinical Psychology Teacher Name Role Phone Valencia Adhikari APRN Primary Care Provider [phone] [phone] Reason for Visit * Reason Comments Follow-up left shoulder pain Encounter Details Date Type Department Care Team (Late st Contact Info) Description 07/13/2017 1:00 PM EDT Office Visit [place] [id number] Meliton Larkin PA [facility] [place] [address] Chronic left shoulder pain Social History Tobacco [...] 01/24/2024 1:00 PM EDT Appointment [place] [address] Walt Bay MD [facility] DR OBSTETRICS [place] [address] 01/24/2024 2:00 PM EDT Routine Obstetrics and Gynecology at [address] Taty Ramos MD [facility] DR MATERNAL & [place] [address] 02/07/2024 9:00 AM EDT Appointment Radiology at [place] [address] Walt Bay MD [facility] DR OBSTETRICS [place] [address] 02/07/2024 10:15 AM EDT Routine Obstetrics and Gynecology at [address] Linda Diaz MD [facility] [address] [place] [address] 03/12/2024 10:45 AM EST Office Visit Endocrinology at [place] [address] James Barth DO [facility] [place] [address] 05/23/2024 Hospital [place] [address] Maite Malloy MD [facility] DR OBSTETRICS [place] [address] documented as of this encounter Visit Diagnoses Diagnosis Chronic left shoulder pain Pain in joint, shoulder region documented in this encounter Care Teams Clinical Psychology Teacher Relationship Specialty Start Date End Date Valencia Adhikari APRN [address] [place] [address] PCP - General 04/21/14 07/04/23 documented as of this encounter
--- OUTSIDE RECORDS SUMMARY | 2024-01-23 17:56 | XMS_ITS | Encounter Summary ---
Author Organization [facility] Address [facility] [place] [address] Care Team Providers Care Cheese Pancake Roller Name Role Phone OnofreValencia pitts Oralia SLADE Primary Care Provider [phone] [phone] Encounter Details Date Type Department Care Team (Late st Contact Info) Description 08/09/2017 Orders Only Psychiatry [place] [address] Argelia Mccray APRN [facility] [place] [address] Depression, unspecified depression type Social History Tobacco [...] 01/24/2024 1:00 PM EDT [place] [address] Walt Bay MD [facility] DR OBSTETRICS [place] [address] 01/24/2024 2:00 PM EDT Routine Obstetrics and Gynecology at [place] [address] Taty Ramos MD [facility] DR MATERNAL & [place] [address] 02/07/2024 9:00 AM EDT Appointment Radiology at [place] [address] Walt Bay MD [facility] DR OBSTETRICS [place] [address] 02/07/2024 10:15 AM EDT Routine Obstetrics and Gynecology at [place] [address] Linda Diaz MD [facility] DR [place] [address] 03/12/2024 10:45 AM EST Office Visit Endocrinology at [place] [address] James Barth DO [facility] [place] [address] 05/23/2024 [place] [address] Maite Malloy MD [facility] DR OBSTETRICS [place] [address] documented as of this encounter Visit Diagnoses Diagnosis Depression, unspecified depression type documented in this encounter Care Teams Cheese Pancake Roller Relationship Specialty Start Date End Date Valencia Adhikari APRN [address] [place] [address] PCP - General 04/21/14 07/04/23 documented as of this encounter
--- OUTSIDE RECORDS SUMMARY | 2024-01-23 17:56 | XMS_ITS | Encounter Summary ---
[place] [address] Care Team Providers Care Liquor Gallery Operator Name Role Phone Valencia Adhikari APRN Primary Care Provider [phone] [phone] Reason for Visit * Reason Onset Date Comments Pre Procedure Call 07/03/2017 Encounter Details Date Type Department Care Team (Late st Contact Info) Description 07/03/2017 [place] [address] Valentina Rincon LNA Pre Procedure Call Social [...] instructed to arrive at 8:00AM on 07/05/2017. Plastic Duplicator: The patient was reminded that they need to have a guard driver accompany them to her procedure who [...] No Prior to checking in at 3D Deskidding Machine Operator, please be sure to empty your bladder. Patient confirmed understanding that if they do not follow the above their instructions, their procedure is likely to be cancelled. KIERAN Earl documented in this encounter Plan of Treatment Upcoming Encounters Date Type Department Care Team (Late st Contact Info) Description 01/24/2024 1:00 PM EDT [place] [address] Walt Bay MD [facility] [place] [address] 01/24/2024 2:00 PM EDT Routine Obstetrics and Gynecology at [address] Taty Ramos MD [facility] MATERNAL & [place] [address] 02/07/2024 9:00 AM EDT Appointment Radiology at [place] [address] Walt Bay MD [facility] [place] [address] 02/07/2024 10:15 AM EDT Routine Obstetrics and Gynecology at [address] Linda Diaz MD [facility] [place] [address] 03/12/2024 10:45 AM EST Office Visit Endocrinology at [place] [address] James Barth DO [facility] [place] [address] 05/23/2024 Hospital [place] [address] Maite Malloy MD [facility] DR OBSTET[place]ICS [place] [address] documented as of this encounter Visit Diagnoses Not on filedocumented in this encounter Care Teams Liquor Gallery Operator Relationship Specialty Start Date End Date Valencia Adhikari APRN [address] [place] [address] PCP - General 04/21/14 07/04/23 documented as of this encounter
--- OUTSIDE RECORDS SUMMARY | 2024-01-23 17:56 | XMS_ITS | Encounter Summary ---
Author Organization [facility] Address [facility] [place] [address] Care Team Providers Care Supervisor Plating And Point Assembly Name Role Phone Valencia Adhikari APRN Primary Care Provider [phone] [phone] Reason for Visit * Reason Comments Depression Anxiety * Consultation (Routine) - Closed Specialty Diagnoses / Procedures Referred By Contwillow t Referred To Contact Psychiatry Diagnoses Anxiety, depression StressJoceline cardoza APRN [address] [place] [address] [facility] [place] [address] Referral ID Status Reason Start Date Expiration Date V isits Requested Visits Authorized [id number] Closed Consult, Test & Treat Connection [facility] 05/29/2017 05/29/2018 1 1 Encounter Details Date Type Department Care Team (Late st Contact Info) Description 07/26/2017 10:00 AM EDT Office Visit Psychiatry [place] [address] Argelia Mccray APRN [facility] [place] [address] CHARISSE (generalized anxiety disorder); Major [...] to self medicate. Andree states she was 15/15when first diagnosed with a psychiatric illness. 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 [...] 01/24/2024 1:00 PM EDT [place] [address] Walt Bay MD [facility] DR OBSTETRICS [place] [address] 01/24/2024 2:00 PM EDT Routine Obstetrics [place] [address] Taty Ramos MD [facility] MATERNAL & [place] [address] 02/07/2024 9:00 AM EDT Appointment Radiology at [address] Walt Bay MD [facility] DR OBSTETRICS [place] [address] 02/07/2024 10:15 AM EDT Routine Obstetrics and Gynecology at [address] Linda Diaz MD [facility] [place]ER[place] [address] 03/12/2024 10:45 AM EST Office Visit Endocrinology at [address] James Barth DO [facility] [place] [address] 05/23/2024 Hospital [place] [address] Maite Malloy MD [facility] DR OBSTETRICS [place] [address] documented as of this encounter Visit Diagnoses Diagnosis CHARISSE (generalized anxiety disorder) Generalized anxiety disorder Major depressive disorder, recurrent episode, moderate Bipolar affective disorder, remission status unspecified documented in this encounter Care Teams Supervisor Plating And Point Assembly Relationship Specialty Start Date End Date Valencia Adhikari APRN [address] [place] [address] PCP - General 04/21/14 07/04/23 documented as of this encounter
--- OUTSIDE RECORDS SUMMARY | 2024-01-23 17:56 | XMS_ITS | Encounter Summary ---
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 Language: fluent in latvian ?? Mood: Anxious ?? Affect: mood-congruent and [...] medications for a long period. Provided a [facility] Benzodiazapine contract for the patient and this literary writer to sign. To reduce polypharmacy we [...] disorder who continues to be seen at [facility] for medication management. Andree continues [...] abuse) or ifrecords are subpoenaed by a car installations supervisor. We also discussed that notes can be read by other clinicians andstaff involved in the patient's care. Argelia Mccray APRN 02/21/2018 documented in this encounter Plan of Treatment Upcoming Encounters Date Type Department Care Team (Late st Contact Info) Description 01/24/2024 1:00 PM EDT [place] [address] Simin Bay MD [facility] OBSTETRICS [place] [address] 01/24/2024 2:00 PM EDT Routine Obstetrics [place] [address] Taty Ramos MD [facility] MATERNAL & [place] [address] 02/07/2024 9:00 AM EDT Appointment Radiology at [address] Simin Bay MD [facility] DR [place]ST[place] [address] 02/07/2024 10:15 AM EDT Routine Obstetrics and Gynecology at [address] Linda Diaz MD [facility] [place] [address] 03/12/2024 10:45 AM EST Office Visit Endocrinology at [address] James Barth DO [facility] [place] [address] 05/23/2024 [place] [address] Maite Malloy MD [facility] DR OBSTET[place] [address] documented as of this encounter Visit Diagnoses Diagnosis Depression, unspecified depression type Anxiety Anxiety state, unspecified documented in this encounter Care Teams Long Filler Cigar Roller Machine Relationship Specialty Start Date End Date Valencia Adhikari APRN [address] [place] [address] PCP - General 04/21/14 07/04/23 documented as of this encounter
--- OUTSIDE RECORDS SUMMARY | 2024-01-23 17:56 | XMS_ITS | Encounter Summary ---
Author Organization [facility] Address [facility] [place] [address] Care Team Providers Care Director Of Testing Name Role Phone Valencia Adhikari APRN Primary Care Provider [phone] [phone] Reason for Visit * Reason Comments Left Shoulder Pain Encounter Details Date Type Department Care Team (Late st Contact Info) Description 09/12/2017 11:10 AM EDT Office [place] [address] Kedar Rowe MD [facility] [place] [address] Chronic left shoulder pain (Primary Dx) Social [...] radial, ulnar. EPL, FPL, interossei intact. Positive Yulee's test. With Speed and Yergason she has [...] 01/24/2024 1:00 PM ED[place] [address] Walt Bay MD [facility] OBSTETRICS [place] [address] 01/24/2024 2:00 PM EDT Routine Obstetrics [place] [address] Taty Ramos MD [facility] MATERNAL & [place] [address] 02/07/2024 9:00 AM EDT [place] [address] Walt Bay MD [facility] DR OBSTETRICS [place] [address] 02/07/2024 10:15 AM EDT Routine Obstetrics and Gynecology at [place] [phone] Linda Diaz MD [facility] [place] [address] 03/12/2024 10:45 AM EST Office Visit Endocrinology at [place] [phone] James Barth DO [facility] [place] [address] 05/23/2024 Hospital Encounter Birthing [place] [phone] Maite Malloy MD [facility] DR OBSTETRICS [place] [address] documented as of this encounter Visit Diagnoses [...] mg documented in this encounter Care Teams Director Of Testing Relationship Specialty Start Date End Date Valencia Adhikari APRN [address] [place] [address] PCP - General 04/21/14 07/04/23 documented as of this encounter
--- OUTSIDE RECORDS SUMMARY | 2024-01-23 17:56 | XMS_ITS | Encounter Summary ---
Author Organization [facility] [place] [address] Care Team Providers Care Meter Maintenance Person Name Role Phone Valencia Adhikari APRN Primary Care Provider [phone] Encounter Details Date Type Department Care Team (Late st Contact Info) Description 07/04/2018 8:30 AM EDT Office Visit Psychiatry and [place] [address] Argelia Mccray [employer] PRODUCE SORTER [facility] [place] [address] Bipolar II disorder; Depression, unspecified depression type; [...] so soon - continues to work at [employer] Substance Use: Tobacco use Safety: Low, no [...] abnormalities Social History: 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 Language: fluent in sami ?? Mood: Anxious ?? Affect: mood-congruent ?? [...] in these patients send serum separator tube ([facility] top) for subsequent determinations. Contact [...] - 10.8 mcg/dL Final Comment: Reference Range: Kimberly Cord Blood: 6.9-14.4 mcg/dL Females: 7.2-14.2 mcg/dL Pediatric ranges: Interpret with caution-ranges have not been verified Free T4 Date Value Ref Range Status 10/04/2017 1.74 (H) 0.93 - 1.70 ng/dL Final Lipids and HgbA1C: No results found for: CHLPL, HDL, CHOLHDL, LDLCHOL, LDLDIRECT, TRIG No results found for: HA1C Vit Lvls: No results found for: IWJQBSTL90, SFOLATE Tox: No results found for: ETHANOL, ACTMNPHEN, SALICYLATE, LEAD No results found for: UDAUSCREEN Rx Lvls: Lamotrigine Lvl Date Value Ref Range Status 10/04/2017 1.4 (L) 2.5 - 15.0 mcg/mL Final Comment: ADDITIONAL INFORMATION This test was developed and its performance characteristics determined by [facility] in a manner consistent with CLIA requirements. This test has not been cleared or approved by the U.S. Food and Drug Administration. Test Performed by: [facility] [address] [place] [address] Formulation and Assessment: Overall Formulation: Andree Hummel [...] 01/24/2024 1:00 PM EDT Appointment [place] [address] Walt Bay MD [facility] [address] OBST[place] [address] 01/24/2024 2:00 PM EDT Routine Obstetrics and Gynecology at [place] [phone] Taty Ramos MD [facility] MATERNAL & [place] [address] 02/07/2024 9:00 AM EDT Appointment Radiology at [address] Walt Bay MD [facility] OBSTETRICS [place] [address] 02/07/2024 10:15 AM EDT Routine Obstetrics [place] [address] Linda Diaz MD [facility] [place] [address] 03/12/2024 10:45 AM EST Office Visit Endocrinology at [address] James Barth DO [facility] [place] [address] 05/23/2024 Hospital Encounter Birthing [place] [phone] Maite Malloy MD [facility] OB[place] [address] documented as of this encounter Procedures Procedure Name Priority Date/Time Associated Diagnosis Comments LAMOTRIGINE LVL Routine 07/04/2018 9:44 AM EDT Bipolar II disorder THYROGLOBULIN ANTIBODY Routine 9:44 AM EDT Bipolar II disorder HEMOGRAM [...] EDT Bipolar II disorder COMPREHENSIVE METABOLIC PANEL Routine 07/04/2018 9:44 AM EDT Bipolar II disorder documented in this encounter Results * Differential, Automated (07/04/2018 9:44 AM EDT) Neutrophil % 60.9 % [facility] Neutrophil Absolute 4.46 1.70 - 6.10 x10(3)/[facility] Lymph % 28.5 % [facility] Lymphocytes Abs 2.1 0.9 - 3.2 x10(3)/[facility] Monocyte % 8.6 % [facility] Monocyte Abs 0.6 0.3 - 0.9 x10(3)/[facility] Eos % 1.2 % [facility] Eosinophils Abs 0.1 0.0 - 0.4 x10(3)/[facility] Basophil % 0.5 % [facility] Baso Absolute 0.0 0.0 - 0.1 x10(3)/[facility] Immature Gran % 0.30 % [facility] Comment: Immature granulocytes(IG's)percentage and absolute count will include metamyelocytes, myelocytes, and promyelocytes. Blood smears from CBCs yielding IG's will be scanned manually for concordance. If this scan disagrees with the automated IG or if promyelocytes are noted, a manual differential will be performed. Immature Gran Absolute 0.02 0.00 - 0.04 x10(3)/mcL [facility] Blood specimen (specimen) 07/04/2018 9:44 AM EDT 07/04/2018 10:05 AM EDT Narrative Resulting Agency Comment Spec In Lab Argelia Mccray [facility] [place] [place] [address] * (ABNORMAL) Hemogram (07/04/2018 9:44 AM EDT) White Blood Cell 7.3 4.0 - 9.5 x10(3)/mc L [facility] Red Blood Cell 3.84(L) 4.00 - 5.21 x10(6)/mc L [facility] Hemoglobin 12.9 11.7 - 15.5 gm/dL [facility] Hematocrit 38.7 35.7 - 45.8 % [facility] Mean Cell Volume 100.8(H) 82.6 - 94.4 fL [facility] Mean Cell Hemoglobin 33.6(H) 27.1 - 32.0 pg [facility] Mean Cell Hemoglobin Concentration 33.3 31.7 - 35.0 gm/dL [facility] Platelet 216 145 - 357 x10(3)/mc L [facility] RDW Standard Deviation 47.5(H) 37.0 - 46.0 [facility] RDW coefficient of variation 12.8 11.5 - 14.1 % [facility] Mean Platelet Volume 11.6 7.6 - 12.9 [facility] NRBC% auto 0.0 % [facility] NRBC Absolute 0.000 0.000 - 0.000 x10(3)/mc L [facility] Blood specimen (specimen) 07/04/2018 9:44 AM EDT 07/04/2018 10:05 AM EDT Narrative Resulting Agency Comment Spec In Lab Argelia Naranjo Shazia [facility] RABLES Performing Organization Address [facility] Co de Phone Number [facility] [place] [address] * Lamotrigine Lvl (07/04/2018 9:44 AM EDT) Lamotrigine Lvl (AUGUST) 3.2 2.5 - 15.0 mcg/mL [facility] Comment: ADDITIONAL INFORMATION This test was developed and its performance characteristics determined by [facility] in a manner consistent with CLIA requirements. This test has not been cleared or approved by the U.S. Food and Drug Administration. Test Performed by: [facility] [address] [place] [address] Blood specimen (specimen) 07/04/2018 9:44 AM EDT 07/04/2018 12:33 PM EDT Narrative Resulting Agency Comment Spec In Lab Argelia Naranjo Shazia [facility] SEND OUT OR DERABLES Performing Organization Address City/[facility]/ZIP Co de Phone Number [facility] [place] [address] * Comprehensive metabolic panel (non-fasting) (07/04/2018 9:44 AM EDT) Glucose 90 65 - 199 mg/dL [facility] Comment:Diabetes: >=200 mg/d L plus symptoms Blood Urea Nitrogen 9 8 - 18 mg/dL [facility] Creatinine 0.78 0.70 - 1.20 mg/dL [facility] Sodium 138 135 - 145 mmol/L [facility] Potassium 3.9 3.5 - 5.0 mmol/L [facility] Comment: Please note: ??Patients with WBC >100,000 may have falsely elevated Potassium levels. ??For accurate Potassium quantification in these patients send serum separator tube (gold top) for subsequent determinations. ??Contact the Clinical Chemistry Laboratory if there are any questions. Chloride 101 98 - 107 mmol/L [facility] Carbon Dioxide 26 22 - 31 mmol/L [facility] Anion Gap 11 5 - 15 mmol/L [facility] Calcium 9.1 8.5 - 10.5 mg/dL [facility] Protein, Total 6.4 6.1 - 8.0 gm/dL [facility] Albumin 4.2 3.2 - 5.2 gm/dL [facility] Aspartate Aminotransferase 12 0 - 30 unit/L [facility] Alanine Aminotransferase 10 0 - 30 unit/L [facility] Alkaline Phosphatase 79 40 - 104 unit/L [facility] Bilirubin, Total 0.4 0.2 - 1.3 mg/dL [facility] Est Glomerular Filtration Rate 104 >=60 mL/min/1. 73 m?? [facility] Comment: The eGFR was calculated using the CKD-EPI equation. As with all creatinine based estimates of kidney function, eGFR values calculated with the CKD-EPI equation are not accurate in patients with acute kidney failure, extremes of body mass or the acutely ill. http://[employer]/[facility] – VINITAnkf eGFR 121 >=60 mL/min/1. 73 m?? [facility] Comment: The eGFR was calculated using the CKD-EPI equation. As with all creatinine based estimates of kidney function, eGFR values calculated with the CKD-EPI equation are not accurate in patients with acute kidney failure, extremes of body mass or the acutely ill. http://[employer] Days/DHnkf Blood specimen (specimen) 07/04/2018 9:44 AM EDT 07/04/2018 10:04 AM EDT Narrative Resulting Agency Comment Spec In Lab Argelia Mccray APRN CHEMISTRY ORDER AMANDA Performing Organization Address City/[facility]/ZIP Co de Phone Number [facility] [place] [address] * (ABNORMAL) TSH (07/04/2018 9:44 AM EDT) Thyroid Stimulating Hormone 7.30(H) 0.27 - 4.20 mcIU/mL [facility] Blood specimen (specimen) 07/04/2018 9:44 AM EDT 07/04/2018 10:04 AM EDT Narrative Resulting Agency Comment Spec In Lab Argelia Mccray APRN CHEMISTRY ORDER AMANDA Performing Organization Address [facility] Co de Phone Number [facility] [place] [address] * Thyroglobulin Antibody (07/04/2018 9:44 AM EDT) Thyroglob Ab <20.0 0.0 - 40.0 IU/mL [facility] Blood specimen (specimen) 07/04/2018 9:44 AM EDT 07/04/2018 2:05 PM EDT Narrative Resulting Agency Comment Spec In Lab Argelia Mccray APRN LAB SEND OUT OR DERABLES Performing Organization Address City/[facility] Co de Phone Number [facility] [place] [address] * T4, free (07/04/2018 9:44 AM EDT) Free T4 1.15 0.93 - 1.70 ng/dL [facility] Blood specimen (specimen) 07/04/2018 9:44 AM EDT 07/04/2018 10:04 AM EDT Narrative Resulting Agency Comment Spec In Lab Argelia Mccray APRN CHEMISTRY ORDER AMANDA Performing Organization Address City/[facility]/ZIP Co de Phone Number [facility] [place] [address] * T4 Total (07/04/2018 9:44 AM EDT) T4 Total 5.7 5.1 - 10.8 mcg/dL [facility] Comment: Reference Range: Cord Blood: ??6.9-14.4 mcg/dL Females: ??7.2-14.2 mcg/dL Pediatric ranges: ??Interpret with caution-ranges have not been verified Blood specimen (specimen) 07/04/2018 9:44 AM EDT 07/04/2018 10:04 AM EDT Narrative Resulting Agency Comment Spec In Lab Argelia Mccray [employer] CHEMISTRY ORDER AMANDA [facility] [place] [address] * T3, free (07/04/2018 9:44 AM EDT) Free T3 2.6 2.0 - 4.4 pg/mL [facility] Blood specimen (specimen) 07/04/2018 9:44 AM EDT 07/04/2018 10:04 AM EDT Narrative Resulting Agency Comment Spec In Lab Argelia Mccray [employer] CHEMISTRY ORDER AMANDA [facility] [place] [address] documented in this encounter Visit Diagnoses Diagnosis Bipolar II disorder Other bipolar disorders Depression, unspecified depression type Anxiety Anxiety state, unspecified documented in this encounter Care Teams Meter Maintenance Person Relationship Specialty Start Date End Date Valencia Adhikari APRN [address] [place] [address] PCP - General 04/21/14 07/04/23 documented as of this encounter
--- OUTSIDE RECORDS SUMMARY | 2024-01-23 17:56 | XMS_ITS | Encounter Summary ---
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 Language: fluent in armenian ?? Mood: Anxious ?? Affect: mood-congruent and [...] reviewed the resource Psychology Today and this short story writer will plan to send the client some options. MEDICAL DECISION MAKING WORKING DIAGNOSIS Anxiety disorder unspecified Depressive disorder/Mood disorder DDx: Bipolar disorder CURRENT ASSESSMENT: 27 year old with hypothyroidism, intractable chronic migraine, and mood disorder who continues to be seen at [facility] for medication management. Today, Andree's anxiety appears [...] abuse) or ifrecords are subpoenaed by a coal loader. We also discussed that notes can be read by other clinicians andstaff involved in the patient's care. Argelia Mccray APRN 03/21/2018 documented in this encounter Plan of Treatment Upcoming Encounters Date Type Department Care Team (Late st Contact Info) Description 01/24/2024 1:00 PM EDT Appointment Radiology at [address]1000 Simin Bay MD [facility] OBSTETRICS [place] [address] 01/24/2024 2:00 PM EDT Routine Obstetrics [place] [address] Taty Ramos MD [facility] MATERNAL & [place] [address] 02/07/2024 9:00 AM EDT Appointment Radiology at [place] [phone] Simin Bay MD [facility] OBSTETRICS [place] [address] 02/07/2024 10:15 AM EDT Routine Obstetrics and Gynecology at [place] [phone] Linda Diaz MD [facility] [place] [address] 03/12/2024 10:45 AM EST Office [place] [address] James Barth DO [facility] [place] [address] 05/23/2024 [place] [phone] Maite Malloy MD [facility] [address] OBSTETRICS [place] [address] documented as of this encounter Visit Diagnoses Diagnosis Anxiety Anxiety state, unspecified documented in this encounter Care Teams Slurry Tank Operator Relationship Specialty Start Date End Date Valencia Adhikari APRN [address] [place] [address] PCP - General 04/21/14 07/04/23 documented as of this encounter
--- OUTSIDE RECORDS SUMMARY | 2024-01-23 17:56 | XMS_ITS | Encounter Summary ---
Author Organization [facility] [place] [address] Care Team Providers Care Gyn Physician Name Role Phone Valencia Adhikari APRN Primary Care Provider [phone] Encounter Details Date Type Department Care Team (Late st Contact Info) Description 11/14/2017 Telephone Psychiatry [place] [phone] Argelia Mccray APRN [facility] [place] [address] Social History Tobacco Use Types Packs/Day Years [...] 01/24/2024 1:00 PM EDT Appointment Radiology at [address]1000 Walt Bay MD [facility] [address] [place] [address] 01/24/2024 2:00 PM EDT Routine Obstetrics and Gynecology at [address]1000 Taty Ramos MD [facility] MATERNAL & [place] [address] 02/07/2024 9:00 AM EDT Appointment Radiology at [address]1000 Walt Bay MD [facility] [address] [place]ST[place] [address] 02/07/2024 10:15 AM EDT Routine Obstetrics and Gynecology at [place] [phone] Linda Diaz MD [facility] [address] [place] [address] 03/12/2024 10:45 AM EST Office Visit Endocrinology at [address]1000 James Barth DO [facility] [place] [address] 05/23/2024 Hospital En[place] [address] Maite Malloy MD [facility] OBSTETRICS [place] [address] documented as of this encounter Visit Diagnoses Not on filedocumented in this encounter Care Teams Gyn Physician Relationship Specialty Start Date End Date Valencia Adhikari APRN [address] [place] [address] PCP - General 04/21/14 07/04/23 documented as of this encounter
--- OUTSIDE RECORDS SUMMARY | 2024-01-23 17:56 | XMS_ITS | Encounter Summary ---
Author Organization [facility] Address [place] [address] Care Team Providers Care Personal Financial Planner Name Role Phone Valencia Adhikari APRN Primary Care Provider [phone] [phone] Reason for Visit * Reason Comments Pain Management L posterior shoulder muscular pain * Consultation (Routine) - Closed Specialty Diagnoses / Procedures Referred By Contac t Referred To Contact Pain Management Diagnoses Chronic left shoulder pain Kedar Santos MD [facility] [place] [address] [facility] [address] [place] [phone] Referral ID Status Reason Start Date Expiration Date V isits Requested Visits Authorized [id number] Closed Consult, Test & Treat 05/15/2017 05/15/2018 1 1 Encounter Details Date Type Department Care Team (Late st Contact Info) Description 06/05/2017 11:30 AM EST Office [place] [address] Deacon Webster MD [facility] [place] [address] Rotator cuff tendinitis, left; Biceps tendinitis of [...] Average:5/10 She participated in physical therapy at [facility] in [facility]. Her therapy had been going well however she describes an event occurring approximately one month earlierin which she heard a pop in her shoulder and her pain returned. She is currently treating her pain with Voltaren gel and lidocaine patches. She underwent MRI imaging of the left shoulder in September [address] [facility] which was normal. She underwent bilateral [...] [facility] provide her with some [...] a benzodiazepine? No Current use of other COMPETITIVE INTELLIGENCE ANALYST depressant? No Current diagnosis of Obstructive Seep [...] MONITORING, SETUP performed by JUAN ESPARZA at [facility] MAIN OR ??? PRO THYROIDECTOMY, MALIG, LTD NECK SURG 03/22/2011 THYROIDECTOMY, FOR MALIGNANCY, LIMITED NECK DISSECTION performed by JUAN ESPARZA at [facility] MAIN OR ??? 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 Smoking status: [...] DATA: MRI of left shoulder 2017 at [facility] The results and images of this study [...] 01/24/2024 1:00 PM EDT [place] [address] Simin Bay MD [facility] [place] [address] 01/24/2024 2:00 PM EDT Routine Obstetrics [place] [phone] Taty Ramos MD [facility] MATERNAL & [place] [address] 02/07/2024 9:00 AM EDT Appointment Radiology at [place] [address] Simin Bay MD [facility] DR OBSTETRICS [place] [address] 02/07/2024 10:15 AM EDT Routine Obstetrics and Gynecology at [place] [address] Linda Diaz MD [facility] [place] [address] 03/12/2024 10:45 AM EST Office Visit Endocrinology at [place] [address] James Barth DO [facility] [place] [address] 05/23/2024 Hospital Encounter Birthing [place] [address] Maite Malloy MD [facility] DR OBSTETRICS [place] [address] documented as of this encounter Visit Diagnoses Diagnosis Rotator cuff tendinitis, left Biceps tendinitis of left shoulder documented in this encounter Care Teams Personal Financial Planner Relationship Specialty Start Date End Date Valencia Adhikari APRN [address] [place] [address] PCP - General 04/21/14 07/04/23 documented as of this encounter
--- OUTSIDE RECORDS SUMMARY | 2024-01-23 17:56 | XMS_ITS | Encounter Summary ---
Author Organization [facility] [place] [address] Care Team Providers Care Medical Geneticist Name Role Phone Valencia Adhikari APRN Primary Care Provider [phone] Reason for Visit * Reason Comments Bipolar Disorder Encounter Details Date Type Department Care Team (Late st Contact Info) Description 08/30/2017 9:00 AM EDT Office Visit Psychiatry [place] [phone] Argelia Mccray COMMERCIAL ILLUSTRATOR [facility] [place] [address] Anxiety; Depression, unspecified depression type Social History [...] encounter Progress Notes * Argelia Mccray, COMMERCIAL ILLUSTRATOR - 08/30/2017 9:00 AM EDT ESTABLISHED ADULT PATIENT OFFICE VISIT NOTE Time Spent: 10 min Attendee(s): Client Chief Complaint: Andree Artislliams is a 27 y.o. Female presents today [...] intact during interview ? Language: Normal/fluent in Welsh ? Fund of Knowledge: Appropriate Psychotherapeutic Interventions [...] 01/24/2024 1:00 PM EDT [place] [address] Walt Bay MD [facility] [address] [place] [address] 01/24/2024 2:00 PM EDT Routine Obstetrics [place] [phone] Taty Ramos MD [facility] MATERNAL & [place] [address] 02/07/2024 9:00 AM EDT Appointment Radiology at [place] [phone] Walt Bay MD [facility] [place] [address] 02/07/2024 10:15 AM EDT Routine Obstetrics [place] [address] Linda Diaz MD [facility] [place] [address] 03/12/2024 10:45 AM EST Office [place] [address] James Barth DO [facility] [address] 05/23/2024 [place] [address] Maite Malloy MD [facility] [place] [address] documented as of this encounter Procedures Procedure [...] Depression, unspecified depression type COMPREHENSIVE METABOLIC PANEL Routine 08/30/2017 10:05 AM EDT Anxiety Depression, unspecified depression type documented in this encounter Results * Differential, Automated (08/30/2017 10:05 AM EDT) Neutrophil % 63.1 % [facility] Neutrophil Absolute 5.14 1.70 - 6.10 x10(3)/[facility] LAB[facility]AT[facility] Lymph % 24.4 % [facility] Lymphocytes Abs 2.0 0.9 - 3.2 x10(3)/[facility] LABORATORY Monocyte % 10.0 % [facility] Monocyte Abs 0.8 0.3 - 0.9 x10(3)/[facility] LABORATORY Eos % 1.5 % [facility] Eosinophils Abs 0.1 0.0 - 0.4 x10(3)/[facility] LABORATORY Basophil % 0.6 % [facility] Baso Absolute 0.0 0.0 - 0.1 x10(3)/[facility] LABORATORY Immature Gran % 0.40 % [facility] Comment: Immature granulocytes(IG's)percentage and absolute count will include metamyelocytes, myelocytes, and promyelocytes. Blood smears from CBCs yielding IG's will be scanned manually for concordance. If this scan disagrees with the automated IG or if promyelocytes are noted, a manual differential will be performed. Immature Gran Absolute 0.03 0.00 - 0.04 x10(3)/mcL [facility] Blood specimen (specimen) 08/30/2017 10:05 AM EDT 08/30/2017 10:13 AM EDT Narrative Resulting Agency Comment Spec In Lab Argelia Mccray [facility] [place] [place] [address] * (ABNORMAL) Hemogram (08/30/2017 10:05 AM EDT) White Blood Cell 8.1 4.0 - 9.5 x10(3)/ L [facility] Red Blood Cell 3.98(L) 4.00 - 5.21 x10(6)/[facility] LABORATORY Hemoglobin 13.6 11.7 - 15.5 gm/dL [facility] Hematocrit 40.5 35.7 - 45.8 % [facility] Mean Cell Volume 101.8(H) 82.6 - 94.4 fL [facility] Mean Cell Hemoglobin 34.2(H) 27.1 - 32.0 pg [facility] Mean Cell Hemoglobin Concentration 33.6 31.7 - 35.0 gm/dL [facility] Platelet 185 145 - 357 x10(3)/ L [facility] RDW Standard Deviation 48.9(H) 37.0 - 46.0 fL [facility] RDW coefficient of variation 12.9 11.5 - 14.1 % [facility] Mean Platelet Volume 11.6 7.6 - 12.9 fL [facility] NRBC% auto 0.0 % [facility] NRBC Absolute 0.000 0.000 - 0.000 x10(3)/ L [facility] Blood specimen (specimen) 08/30/2017 10:05 AM EDT 08/30/2017 10:13 AM EDT Narrative Resulting Agency Comment Spec In Lab Argelia Mccray [facility] Performing Organization Address [facility]/ZIP Co de Phone Number [facility] [place] [address] * (ABNORMAL) Lamotrigine Lvl (08/30/2017 10:05 AM EDT) Lamotrigine Lvl (AUGUST) 1.9(L) 2.5 - 15.0 mcg/mL [facility] Comment: ADDITIONAL INFORMATION This test was developed and its performance characteristics determined by [facility] in a manner consistent with CLIA requirements. This test has not been cleared or approved by the U.S. Food and Drug Administration. Test Performed by: [facility] Laboratories - [facility] [address] [place] [address] Blood specimen (specimen) 08/30/2017 10:05 AM EDT 08/30/2017 1:24 PM EDT Narrative Resulting Agency Comment Spec In Lab Argelia Naranjo Shazia SLADE LAB SEND OUT OR DERABLES Performing Organization Address [facility]/ZIP Co de Phone Number [facility] [place] [address] * Vitamin D, 25-Hydroxy (08/30/2017 10:05 AM EDT) Vitamin D Total 25 OH 33 30 - 100 ng/mL [facility] Comment: Deficient <10 ng/mL Insufficient 10 to 29 ng/mL Sufficient 30 to 100 ng/mL Potential Intoxication >100 ng/mL According to the US National Osteoporosis Foundation, Vitamin D concentrations >30 ng/mL are sufficient to protect bone health. ??The National Kidney Foundation has similarly stated that patients with Vitamin D concentrations <30ng/mL should be considered to be insufficient or deficient. http://Engezniurl.com/nkf-guidelines http://Cloud Direct.com/nejm-VitD The IDS iSYS Vitamin D Immunoassay detects both 25-OH Vitamin D2 and 25-OH Vitamin D3, but only a total Vitamin D concentration is reported. Blood specimen (specimen) 08/30/2017 10:05 AM EDT 08/30/2017 1:29 PM EDT Narrative Resulting Agency Comment Spec In Lab Argelia Naranjo Shazia SLADE CHEMISTRY ORDER AMANDA [facility] [place] [address] * (ABNORMAL) Comprehensive metabolic panel (non-fasting) (08/30/2017 10:05 AM EDT) Glucose 85 65 - 199 mg/dL [facility] Comment:Diabetes: >=200 mg/d L plus symptoms Blood Urea Nitrogen 7(L) 8 - 18 mg/dL [facility] Creatinine 0.68(L) 0.70 - 1.20 mg/dL [facility] Sodium 138 135 - 145 mmol/L [facility] Potassium 4.5 3.5 - 5.0 mmol/L [facility] Comment: Please note: ??Patients with WBC >100,000 may have falsely elevated Potassium levels. ??For accurate Potassium quantification in these patients send serum separator tube (gold top) for subsequent determinations. ??Contact the Clinical Chemistry Laboratory if there are any questions. Chloride 102 98 - 107 mmol/L [facility] Carbon Dioxide 27 22 - 31 mmol/L [facility] Anion Gap 9 5 - 15 mmol/L [facility] Calcium 8.8 8.5 - 10.5 mg/dL [facility] Protein, Total 6.3 6.1 - 8.0 gm/dL [facility] Albumin 4.5 3.2 - 5.2 gm/dL [facility] Aspartate Aminotransferase 12 0 - 30 unit/L [facility] Alanine Aminotransferase 9 0 - 30 unit/L [facility] Alkaline Phosphatase 70 40 - 104 unit/L [facility] Bilirubin, Total 0.5 0.2 - 1.3 mg/dL [facility] Est Glomerular Filtration Rate >60 >=60 [facility] Comment: The reported eGFR should be multiplied by 1.2 for patients. The MDRD is not an appropriate measure of renal function for patients with body mass extremes or in patients with acute kidney failure. http://Inspace Technologies/DHnkdep http://[employer]/DHMCnkf Blood specimen (specimen) 08/30/2017 10:05 AM EDT 08/30/2017 10:13 AM EDT Narrative Resulting Agency Comment Spec In Lab Argelia Levinegaa ABREUN CHEMISTRY ORDER AMANDA Performing Organization Address City/[facility]/ZIP Co de Phone Number [facility] [place] [address] * (ABNORMAL) TSH (08/30/2017 10:05 AM EDT) Thyroid Stimulating Hormone 15.40(H) 0.27 - 4.20 mlU/ML [facility] Blood specimen (specimen) 08/30/2017 10:05 AM EDT 08/30/2017 10:13 AM EDT Narrative Resulting Agency Comment Spec In Lab Argelia Naranjo Shazia ABREUN CHEMISTRY ORDER AMANDA Performing Organization Address City/[facility]/ZIP Co de Phone Number [facility] [place] [address] * Thyroglobulin Antibody (08/30/2017 10:05 AM EDT) Thyroglob Ab <20.0 0.0 - 40.0 IU/mL [facility] Comment: Assay performed is the DPC Immulite Tg-Ab immunometric assay. (Cutoff for TgAb negativity is <20 IU/ml) Blood specimen (specimen) 08/30/2017 10:05 AM EDT 08/30/2017 1:39 PM EDT Narrative Resulting Agency Comment Spec In Lab Argelia Mccray APRN LAB SEND OUT OR DERABLES Performing Organization Address [facility]/ZIP Co de Phone Number [facility] [place] [address] * T4, free (08/30/2017 10:05 AM EDT) Free T4 1.58 0.93 - 1.70 ng/dL [facility] Blood specimen (specimen) 08/30/2017 10:05 AM EDT 08/30/2017 10:13 AM EDT Narrative Resulting Agency Comment Spec In Lab Argelia Mccray APRN CHEMISTRY ORDER AMANDA Performing Organization Address [facility] Co de Phone Number [facility] [place] [address] * T4 Total (08/30/2017 10:05 AM EDT) T4 Total 7.4 5.1 - 10.8 mcg/dL [facility] Comment: Reference Range: Berkey Cord Blood: ??6.9-14.4 mcg/dL Females: ??7.2-14.2 mcg/dL Pediatric ranges: ??Interpret with caution-ranges have not been verified Blood specimen (specimen) 08/30/2017 10:05 AM EDT 08/30/2017 10:13 AM EDT Narrative Resulting Agency Comment Spec In Lab Argelia Mccray APRN CHEMISTRY ORDER AMANDA Performing Organization Address [facility] Co de Phone Number [facility] [place] [address] * T3, free (08/30/2017 10:05 AM EDT) Free T3 2.8 2.0 - 4.4 pg/mL [facility] Blood specimen (specimen) 08/30/2017 10:05 AM EDT 08/30/2017 10:13 AM EDT Narrative Resulting Agency Comment Spec In Lab Zaynabjeff Naranjo Shazia SLADE CHEMISTRY ORDER AMANDA [facility] [place] [address] documented in this encounter Visit Diagnoses Diagnosis Anxiety Anxiety state, unspecified Depression, unspecified depression type documented in this encounter Care Teams Medical Geneticist Relationship Specialty Start Date End Date Valencia Adhikari APRN [address] [place] [address] PCP - General 04/21/14 07/04/23 documented as of this encounter
--- OUTSIDE RECORDS SUMMARY | 2024-01-23 17:56 | XMS_ITS | Encounter Summary ---
Author Organization [facility] Address [facility] [place] [address] Care Team Providers Care Space Operations Name Role Phone OnofreValencia pitts Oralia SLADE Primary Care Provider [phone] [phone] Encounter Details Date Type Department Care Team (Late st Contact Info) Description 09/05/2017 Orders Only Psychiatry [place] [address] Argelia Mccray APRN [facility] [place] [address] Depression, unspecified depression type Social History Tobacco [...] 01/24/2024 1:00 PM EDT Appointment [place] [phone] Walt Bay MD [facility] DR OBSTET[place] [address] 01/24/2024 2:00 PM EDT Routine Obstetrics and Gynecology at [place] [address] Taty Ramos MD [facility] DR MATERNAL & [place] [address] 02/07/2024 9:00 AM EDT Appointment Radiology at [place] [address] Walt Bay MD [facility] DR OBSTETRICS [place] [address] 02/07/2024 10:15 AM EDT Routine Obstetrics and Gynecology at [place] [address] Linda Diaz MD [facility] DR MATERNAL [place] [address] 03/12/2024 10:45 AM EST Office Visit Endocrinology at [place] [address] James Barth DO [facility] DR [place]OCRIN[place] [address] 05/23/2024 [place] [address] Maite Malloy MD [facility] DR OBSTETRICS [place] [address] documented as of this encounter Visit Diagnoses Diagnosis Depression, unspecified depression type documented in this encounter Care Teams Space Operations Relationship Specialty Start Date End Date Valencia Adhikari APRN [address] [place] [address] PCP - General 04/21/14 07/04/23 documented as of this encounter
--- OUTSIDE RECORDS SUMMARY | 2024-01-23 17:56 | XMS_ITS | Encounter Summary ---
Author Organization [facility] Address [facility] [place] [address] Care Team Providers Care Foam Rubber Fabricator Name Role Phone OnofreValencia pitts Oraila SLADE Primary Care Provider +1 [phone] Encounter Details Date Type Department Care Team (Late st Contact Info) Description 08/24/2017 Orders Only Psychiatry [place] [address] Argelia Mccray APRN [facility] [place] [address] Depression, unspecified depression type Social History Tobacco [...] 01/24/2024 1:00 PM EDT [place] [phone] Walt Bay MD [facility] DR OBSTETRICS [place] [address] 01/24/2024 2:00 PM EDT Routine Obstetrics and Gynecology at [place] [address] Taty Ramos MD [facility] DR MATERNAL & [place] [address] 02/07/2024 9:00 AM EDT Appointment Radiology at [place] [address] Walt Bay MD [facility] DR OBSTETRICS [place] [address] 02/07/2024 10:15 AM EDT Routine Obstetrics and Gynecology at [place] [address] Linda Diaz MD [facility] [address] [place]ERNAL [place] [address] 03/12/2024 10:45 AM EST Office Visit Endocrinology at [place] [address] James Barth DO [facility] [place] [address] 05/23/2024 [place] [address] Maiet Malloy MD [facility] DR OBSTETRICS [place] [address] documented as of this encounter Visit Diagnoses Diagnosis Depression, unspecified depression type documented in this encounter Care Teams Foam Rubber Fabricator Relationship Specialty Start Date End Date Valencia Adhikari APRN [address] [place] [address] PCP - General 04/21/14 07/04/23 documented as of this encounter
--- OUTSIDE RECORDS SUMMARY | 2024-01-23 17:56 | XMS_ITS | Encounter Summary ---
Author Organization [facility] [place] [address] Care Team Providers Care Secondary Art Teacher Name Role Phone OnofreMarilynValencia Oralia SLADE Primary Care Provider [phone] [phone] Reason for Visit * Reason Onset Date Comments Medication Refill 09/13/2017 Encounter Details Date Type Department Care Team (Late st Contact Info) Description 09/13/2017 Refill Psychiatry [place] [phone] Argelia Mccray APRN [facility] [place] [address] Depression, unspecified depression type Social History Tobacco [...] 01/24/2024 1:00 PM EDT [place] [phone] Simin Bay MD [facility] DR OBSTETRICS [place] [address] 01/24/2024 2:00 PM EDT Routine Obstetrics and Gynecology at [address] Taty Ramos MD [facility] DR MATERNAL & [place] [address] 02/07/2024 9:00 AM EDT Appointment Radiology at [place] [address] Simin Bay MD [facility] DR [place] [address] 02/07/2024 10:15 AM EDT Routine Obstetrics and Gynecology at [address] Linda Diaz MD [facility] [place] [address] 03/12/2024 10:45 AM EST Office Visit Endocrinology at [address] James Barth DO [facility] [place] [address] 05/23/2024 [place] [address] Maite Malloy MD [facility] DR [place] [address] documented as of this encounter Visit Diagnoses Diagnosis Depression, unspecified depression type documented in this encounter Care Teams Secondary Art Teacher Relationship Specialty Start Date End Date Valencia Adhikari APRN [address] [place], [place] [address] PCP - General 04/21/14 07/04/23 documented as of this encounter
--- OUTSIDE RECORDS SUMMARY | 2024-01-23 17:56 | XMS_ITS | Encounter Summary ---
Author Organization [facility] Address [facility] [place] [address] Care Team Providers Care Toll Collector Supervisor Name Role Phone Valencia Adhikari APRN Primary Care Provider [phone] Reason for Visit * Consultation (Routine) - Closed Specialty Diagnoses / Procedures Referred By Lamont riggins Referred To Contact Gastroenterology Diagnoses IRREGULAR BOWEL HABITS Valencia Adhikari APRN [address] [place] [address] [facility] [place] [place] [address] [place] [address] Referral ID Status Reason Start Date Expiration Date V isits Requested Visits Authorized [id number] Closed Consult, Test & Treat [facility] 09/11/2017 09/11/2018 1 1 Encounter Details Date Type Department Care Team (Late st Contact Info) Description 10/16/2017 10:00 AM EDT Office Visit [place] [phone] Elinor Fisher [place] [facility] [place] [address] Abdominal bloating; Diarrhea, unspecified type; IgA deficiency [...] EGD and colonoscopy done (she thinks in [place]) around age 17 (I do not have [...] MONITORING, SETUP performed by JUAN ESPARZA at [facility] MAIN OR ??? PRO THYROIDECTOMY, NYDIA, [facility] NECK SURG 03/22/2011 THYROIDECTOMY, FOR MALIGNANCY, LIMITED NECK DISSECTION performed by JUAN ESPARZA at [facility] MAIN OR ??? TONSILLECTOMY 2010 ??? [...] Fisher PA-C Section of Gastroenterology [place] [address] documented in this encounter Plan of Treatment Upcoming Encounters Date Type Department Care Team (Late st Contact Info) Description 01/24/2024 1:00 PM EDT [place] [address] Walt Bay MD [facility] DR OBSTETRICS [place] [address] 01/24/2024 2:00 PM EDT Routine Obstetrics and Gynecology at [place] [phone] Taty Ramos MD [facility] DR MATERNAL & [place] [address] 02/07/2024 9:00 AM EDT Appointment Radiology at [place] [phone] Walt Bay MD [facility] DR OBSTET[place]ICS [place] [address] 02/07/2024 10:15 AM EDT Routine Obstetrics and Gynecology at [place] [phone] Linda Diaz MD [facility] [place] [address] 03/12/2024 10:45 AM EST Office Visit [place] [address] James Barth DO [facility] [place] [address] 05/23/2024 Hospital [place] [address] Maite Malloy MD [facility] [place] [address] documented as of this encounter Visit Diagnoses Diagnosis Abdominal bloating Flatulence, eructation, and gas pain Diarrhea, unspecified type IgA deficiency Selective IgA immunodeficiency documented in this encounter Care Teams Toll Collector Supervisor Relationship Specialty Start Date End Date Valencia Adhikari APRN [address] [place] [address] PCP - General 04/21/14 07/04/23 documented as of this encounter
--- OUTSIDE RECORDS SUMMARY | 2024-01-23 17:56 | XMS_ITS | Encounter Summary ---
Author Organization [facility] Address [facility] [place] [address] Care Team Providers Care Cloth Finishing Range Tender Name Role Phone Valencia Adhikari APRN Primary Care Provider [phone] [phone] Reason for Visit * Reason Comments Bipolar Disorder Encounter Details Date Type Department Care Team (Late st Contact Info) Description 11/08/2017 8:00 AM EDT Office Visit Psychiatry [place] [phone] Argelia Mccray TREAD BUILDER [facility] [place] [address] Depression, unspecified depression type; Anxiety Social History [...] in this encounter Progress Notes * MichaeldelilahArgelia, TREAD BUILDER - 11/08/2017 8:00 AM EDT ESTABLISHED ADULT PATIENT OFFICE VISIT NOTE Time Spent: 25min Attendee(s): Client HISTORY Chief Complaint: Andree Hummel [...] on Sunday and has been hospitalized at [facility]. Andree states she and her father [...] estonian ?? Mood: Anxious ?? Affect: mood-congruent ?? [...] abuse) or ifrecords are subpoenaed by a dock operations supervisor. We also discussed that notes can be read by other clinicians andstaff involved in the patient's care. Argelia Mccray APRN 11/08/2017 documented in this encounter Plan of Treatment Upcoming Encounters Date Type Department Care Team (Late st Contact Info) Description 01/24/2024 1:00 PM EDT Appointment Radiology at [place] [phone] Walt Bay MD [facility] DR OBSTETRICS [place] [address] 01/24/2024 2:00 PM EDT Routine Obstetrics and Gynecology at [place] [phone] Taty Ramos MD [facility] MATERNAL & [place] [address] 02/07/2024 9:00 AM EDT [place] [address] Walt Bay MD [facility] OBSTETRICS [place] [address] 02/07/2024 10:15 AM EDT Routine Obstetrics [place] [address] Linda Diaz MD [facility] [place] [address] 03/12/2024 10:45 AM EST Office [place] [address] James Barth DO [facility] [place] [address] 05/23/2024 Hospital [place] [address] Maite Malloy MD [facility] OBSTETRICS [place] [address] documented as of this encounter Visit Diagnoses Diagnosis Depression, unspecified depression type Anxiety Anxiety state, unspecified documented in this encounter Care Teams Cloth Finishing Range Tender Relationship Specialty Start Date End Date Valencia Adhikari APRN [address] [place] [address] PCP - General 04/21/14 07/04/23 documented as of this encounter
--- OUTSIDE RECORDS SUMMARY | 2024-01-23 17:56 | XMS_ITS | Encounter Summary ---
Author Organization [facility] [place] [address] Care Team Providers Care Forensic Analyst Name Role Phone Valencia Adhikari APRN Primary Care Provider +1 [phone] Reason for Visit * Reason Comments Follow-up Workers comp needs u pdate Encounter Details Date Type Department Care Team (Late st Contact Info) Description 10/15/2017 1:30 PM EDT Office [place] [address] Alicia Oviedo HAND BUFFER [facility] DR [place] [address] Chronic left shoulder pain; Scapular dyskinesis Social [...] encounter Progress Notes * Preet Alicia A, HAND BUFFER - 10/15/2017 1:30 PM EDT Chief complaint: [...] 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 [facility] RTW forms completed. Pt agrees, questions solicited/answered, [...] 01/24/2024 1:00 PM EDT Appointment Radiology at [address] Walt Bay MD [facility] [place] [address] 01/24/2024 2:00 PM EDT Routine Obstetrics and Gynecology at [address] Taty Ramos MD [facility] MATERNAL & [place] [address] 02/07/2024 9:00 AM EDT Appointment Radiology at [address] Walt Bay MD [facility] [place] [address] 02/07/2024 10:15 AM EDT Routine Obstetrics and Gynecology at [place] [phone] Linda Diaz MD [facility] MATERNAL [place] [address] 03/12/2024 10:45 AM EST Office [place] [address] James Barth DO [facility] [place] [address] 05/23/2024 Hospital Encounter Birthing Betito [facility] [place] [address] Maite Malloy MD [facility] DR OBSTETRICS [place] [address] documented as of this encounter Visit Diagnoses Diagnosis Chronic left shoulder pain Pain in joint, shoulder region Scapular dyskinesis Lack of coordination documented in this encounter Care Teams Forensic Analyst Relationship Specialty Start Date End Date Valencia Adhikari APRN [address] [place] [address] PCP - General 04/21/14 07/04/23 documented as of this encounter
--- OUTSIDE RECORDS SUMMARY | 2024-01-23 17:56 | XMS_ITS | Encounter Summary ---
[place] [address] Care Team Providers Care Vending Mechanic Name Role Phone Valencia Adhikari APRN Primary Care Provider +1 [phone] Reason for Referral * Surgical (Routine) - Specialty Diagnoses / Procedures Referred By Contac t Referred To Contact Diagnoses Chronic left shoulder pain Procedures Injection tendon or ligament Kiah Alvarez V [facility] [place] [address] Referral ID Status Reason Start Date Expiration Date V isits Requested Visits Authorized [id number] Consult, Test & Treat 07/05/2017 07/05/2018 1 1 * Surgical (Routine) - Specialty Diagnoses / Procedures Referred By Contac t Referred To Contact Diagnoses Biceps tendinitis, left Procedures Bursa Inject - Major (Shoulder,hip,knee) Kiah Alvarez V [facility] [place] [address] Referral ID Status Reason Start Date Expiration Date V isits Requested Visits Authorized [id number] Consult, Test & Treat 07/05/2017 07/05/2018 1 [...] 1 Valencia Adhikari APRN [address] [place] [address] Kiah Alvarez V [facility] [place] [address] Referral ID Status Reason Start Date Expiration Date V isits Requested Visits Authorized [id number] 07/05/2017 07/05/2018 1 1 Encounter Details Date Type Department Care Team (Latest Contact Info) Description 07/05/2017 8:30 AM EDT Procedure [place] [address] Kiah Alvarez V [facility] [place] [address] Chronic left shoulder pain; Biceps tendinitis, left [...] No 2. Patient states they have a driver's education instructor to transport after procedure? Yes 3. Patient [...] MONITORING, SETUP performed by JUAN ESPARZA at [facility] MAIN OR ??? PRO THYROIDECTOMY, IVA [place] NECK SURG 03/22/2011 THYROIDECTOMY, FOR MALIGNANCY, LIMITED NECK DISSECTION performed by JUAN ESPARZA at [facility] MAIN OR ??? TONSILLECTOMY 2010 ??? 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 Smoking status: [...] any questions. Sincerely, KIAH ALVAREZ DO, MPH Banana Loader of Anesthesiology/[facility] [employer] at [facility] Film And Video Editor, Pain Medicine Fellowship ABPM&R - Subspecialty board [...] CC: Valencia Adhikari APRN [address] [place] [address] documented in this encounter Procedure Notes * [...] the entire procedure. KIAH ALVAREZ DO, MPH Banana Loader of Anesthesiology/[facility] [employer] [facility] at [facility] Film And Video Editor, Pain Medicine Fellowship ABPM&R - Subspecialty board certification in Pain Medicine CC: Valencia Adhikari APRN [address] [place] [address] documented in this encounter Plan of Treatment Upcoming Encounters Date Type Department Care Team (Late st Contact Info) Description 01/24/2024 1:00 PM EDT [place] [address] Walt Bay MD [facility] OBSTETRICS [place] [address] 01/24/2024 2:00 PM EDT Routine Obstetrics [place] [address] Taty Ramos MD [facility] MATERNAL & [place] [address] 02/07/2024 9:00 AM EDT [place] [address] Walt Bay MD [facility] OBSTETRICS [place] [address] 02/07/2024 10:15 AM EDT Routine Obstetrics and Gynecology at [place] [phone] Linda Diaz MD [facility] MATERNAL [place] [address] 03/12/2024 10:45 AM EST Office [place] [address] James Barth DO [facility] [place] [address] 05/23/2024 [place] [address] Maite Malloy MD [facility] DR OBSTETRICS [place] [address] Scheduled Orders Name Type Priority Associated Diagnoses [...] the entire procedure. KIAH ALVAREZ DO, MPH Banana Loader of Anesthesiology/[facility] [employer] [facility] at [facility] Film And Video Editor, Pain Medicine Fellowship ABPM&R - Subspecialty board certification in Pain Medicine CC: Valencia Adhikari APRN [address] [place] [address] Kiah Sharkey V, DO PROCEDURE/MINOR SURG ICAL ORDERABLES documented in [...] mg documented in this encounter Care Teams Vending Mechanic Relationship Specialty Start Date End Date Valencia Adhikari APRN [address] [place] [address] PCP - General 04/21/14 07/04/23 documented as of this encounter
--- OUTSIDE RECORDS SUMMARY | 2024-01-23 17:56 | XMS_ITS | Encounter Summary ---
Author Organization [facility] Address [facility] [place] [address] Care Team Providers Care Blood Bank Order Control Clerk Name Role Phone OnofreMarilynValencia Oralia SLADE Primary Care Provider +1 [phone] Reason for Visit * Reason Onset Date Comments Medication Refill 01/31/2018 Encounter Details Date Type Department Care Team (Late st Contact Info) Description 01/31/2018 Refill Psychiatry and Behavioral [place] [address] Osmar South RN Depression, unspecified [...] 01/24/2024 1:00 PM EDT Appointment [place] [address] Walt Bay MD [facility] [place] [address] 01/24/2024 2:00 PM EDT Routine Obstetrics and Gynecology at [place] [address] Taty Ramos MD [facility] DR MATERNAL & [place] [address] 02/07/2024 9:00 AM EDT Appointment Radiology at [place] [address] Walt Bay MD [facility] DR OBSTET[place] [address] 02/07/2024 10:15 AM EDT Routine Obstetrics and Gynecology at [place] [address] Linda Diaz MD [facility] [place] [address] 03/12/2024 10:45 AM EST Office Visit Endocrinology at [place] [address] James Barth DO [facility] [place] [address] 05/23/2024 [place] [address] Maite Malloy MD [facility] DR [place]STET[place] [address] documented as of this encounter Visit Diagnoses Diagnosis Depression, unspecified depression type Anxiety Anxiety state, unspecified documented in this encounter Care Teams Blood Bank Order Control Clerk Relationship Specialty Start Date End Date Valencia Adhikari APRN [address] [place] [address] PCP - General 04/21/14 07/04/23 documented as of this encounter
--- OUTSIDE RECORDS SUMMARY | 2024-01-23 17:56 | XMS_ITS | Encounter Summary ---
Author Organization [facility] Address [facility] [place] [address] Care Team Providers Care Managing Editor Name Role Phone Valencia Adhikari APRN Primary Care Provider +1 [phone] Reason for Referral * Physical Therapy (Routine) - Specialty Diagnoses / Procedures Referred By Lamont riggins Referred To Contact Physical Therapy Diagnoses Chronic left shoulder pain Scapular dyskinesis Alicia Oviedo APRN [facility] [place] [address] Referral ID Status Reason Start Date Expiration Date V isits Requested Visits Authorized [id number] Evaluate and Treat 09/13/2017 03/12/2018 12 12 Reason for Visit * Reason Comments Left Shoulder Pain WC DOI: 09/06/16 Encounter Details Date Type Department Care Team (Late st Contact Info) Description 09/13/2017 1:55 PM EDT Office [place] [address] Laura Schneider MD [facility] [place] [address] Scapular dyskinesis (Primary Dx); Chronic left shoulder [...] this encounter Progress Notes * Alicia Oviedo, ACUTE CARE SURGEON - 09/13/2017 1:55 PM EDT This patient [...] She has been to multiple providers at [facility] for her pain including Dr. Santos, Meliton [...] MONITORING, SETUP performed by JUAN ESPARZA at [facility] MAIN OR ??? PRO THYROIDECTOMY, MALIG, LTD NECK SURG 03/22/2011 THYROIDECTOMY, FOR MALIGNANCY, LIMITED NECK DISSECTION performed by JUAN ESPARZA at [facility] MAIN OR ??? TONSILLECTOMY 2010 [...] ?? Empty can test - Negative ?? Vki's test - N/A ?? Labrum tests ?? [...] remain out of work at this time, [facility] RTW forms completed. Voc rehab recommended. Pt agrees, questions solicited/answered, will return as scheduled and as needed for concerns or questions. Pt understands they may also call us prn for above. documented in this encounter Plan of Treatment Upcoming Encounters Date Type Department Care Team (Late st Contact Info) Description 01/24/2024 1:00 PM EDT [place] [address] Walt Bay MD [facility] [place] [address] 01/24/2024 2:00 PM EDT Routine Obstetrics and Gynecology at [address]1000 Taty Ramos MD [facility] MATERNAL & [place] [address] 02/07/2024 9:00 AM EDT Appointment Radiology at [place] [address] Walt Bay MD [facility] [place] [address] 02/07/2024 10:15 AM EDT Routine Obstetrics and Gynecology at [address]1000 Linda Diaz MD [facility] [place] [address] 03/12/2024 10:45 AM EST Office Visit Endocrinology at [address]1000 James Barth DO [facility] [place] [address] 05/23/2024 Hospital Encounter Birthing [place] [phone] Maite Malloy MD [facility] [place] [address] Scheduled Referrals Name Type Priority Associated Diagnoses Orde r Schedule Referral to Physical Therapy Outpatient Referral Routine Chronic left shoulder pain Scapular dyskinesis Ordered: 09/13/2017 documented as of this encounter Visit Diagnoses Diagnosis Scapular dyskinesis- Primary Lack of coordination Chronic left shoulder pain Pain in joint, shoulder region documented in this encounter Care Teams Managing Editor Relationship Specialty Start Date End Date Valencia Adhikari APRN [address] [place] [address] PCP - General 04/21/14 07/04/23 documented as of this encounter
--- OUTSIDE RECORDS SUMMARY | 2024-01-23 17:56 | XMS_ITS | Encounter Summary ---
Author Organization [facility] [place] [address] Care Team Providers Care Electrocardiograph Technician Name Role Phone Valencia Adhikari APRN Primary Care Provider +1 [phone] Reason for Visit * Reason Comments Bipolar Disorder Depression Anxiety Encounter Details Date Type Department Care Team (Late st Contact Info) Description 08/16/2017 11:00 AM EDT Office Visit Psychiatry [place] [address] Argelia Mccray APRN [facility] [place] [address] Bipolar affective disorder, remission status unspecified; Anxiety [...] in this encounter Progress Notes * MichaeldelilahArgelia, DOUGH MIXER - 08/16/2017 11:00 AM EDT ESTABLISHED ADULT [...] expresses her fear that her son will returned goods inspector like his biological father, who has issues [...] 01/24/2024 1:00 PM EDT Appointment Radiology at [address]1000 Walt Bay MD [facility] DR OBSTETRICS [place] [address] 01/24/2024 2:00 PM EDT Routine Obstetrics and Gynecology at [place] [phone] Taty Ramos MD [facility] DR MATERNAL & [place] [address] 02/07/2024 9:00 AM EDT Appointment Radiology at [place] [phone] Walt Bay MD [facility] DR OBSTETRICS [place] [address] 02/07/2024 10:15 AM EDT Routine Obstetrics and Gynecology at [place] [phone] Linda Diaz MD [facility] DR MATERNAL [place] [address] 03/12/2024 10:45 AM EST Office Visit Endocrinology at [place] [phone] James Barth DO [facility] [place] [address] 05/23/2024 Hospital Encounter Birthing [facility] [place] [address] Maite Malloy MD [facility] OBSTETRICS [place] [address] documented as of this encounter Visit Diagnoses Diagnosis Bipolar affective disorder, remission status unspecified Anxiety Anxiety state, unspecified documented in this encounter Care Teams Electrocardiograph Technician Relationship Specialty Start Date End Date Valencia Adhikari APRN [address] [place] [address] PCP - General 04/21/14 07/04/23 documented as of this encounter
--- OUTSIDE RECORDS SUMMARY | 2024-01-23 17:56 | XMS_ITS | Encounter Summary ---
[place] [address] Care Team Providers Care Highway Worker Name Role Phone OnofreValencia pitts [place] Primary Care Provider +1 -[phone] Encounter Details Date Type Department Care Team (Late st Contact Info) Description 11/16/2017 Telephone [place] [address] Lianne Rivera RN Social History [...] 01/24/2024 1:00 PM EDT Appointment [place] [address] Walt Bay MD [facility] OBSTETRICS [place] [address] 01/24/2024 2:00 PM EDT Routine Obstetrics and Gynecology at [address]1000 Taty Ramos MD [facility] MATERNAL & [place] [address] 02/07/2024 9:00 AM EDT Appointment Radiology at [place] [address] Walt Bay MD [facility] OBSTETRICS [place] [address] 02/07/2024 10:15 AM EDT Routine Obstetrics and Gynecology at [address]1000 Linda Diaz MD [facility] MATERNAL [place] [address] 03/12/2024 10:45 AM EST Office Visit Endocrinology at [place] [address] James Barth DO [facility] [place] [address] 05/23/2024 Hospital [place] [address] Maite Malloy MD [facility] DR OBSTETRICS [place] [address] documented as of this encounter Visit Diagnoses Not on filedocumented in this encounter Care Teams Highway Worker Relationship Specialty Start Date End Date Valencia Adhikari APRN [address] [place] [address] PCP - General 04/21/14 07/04/23 documented as of this encounter
--- OUTSIDE RECORDS SUMMARY | 2024-01-23 17:56 | XMS_ITS | Encounter Summary ---
Author Organization [facility] [place] [address] Care Team Providers Care Elementary Educator Name Role Phone Valencia Adhikari [place] Primary Care Provider +1 -[phone] Encounter Details Date Type Department Care Team (Late st Contact Info) Description 01/28/2018 Telephone [place] [address] Martínez Knight Social History Tobacco [...] 01/24/2024 1:00 PM EDT [place] [address] Walt Bay MD [facility] DR OBSTETRICS [place] [address] 01/24/2024 2:00 PM EDT Routine Obstetrics and Gynecology at [place] [address] Taty Ramos MD [facility] MATERNAL & [place] [address] 02/07/2024 9:00 AM EDT Appointment Radiology at [place] [address] Walt Bay MD [facility] OBSTETRICS [place] [address] 02/07/2024 10:15 AM EDT Routine Obstetrics and Gynecology at [place] [address] Linda Diaz MD [facility] [place] [address] 03/12/2024 10:45 AM EST Office Visit Endocrinology at [place] [address] James Barth DO [facility] [place] [address] 05/23/2024 Hospital Encounter Birthing [address] Maite Malloy MD [facility] OBSTETRICS [place] [address] documented as of this encounter Visit Diagnoses Not on filedocumented in this encounter Care Teams Elementary Educator Relationship Specialty Start Date End Date Valencia Adhikari APRN [address] [place] [address] PCP - General 04/21/14 07/04/23 documented as of this encounter
--- OUTSIDE RECORDS SUMMARY | 2024-01-23 17:56 | XMS_ITS | Encounter Summary ---
Author Organization [facility] Address [facility] [place] [address] Care Team Providers Care Rotary Saw Operator Name Role Phone Valencia Adhikari [place] Primary Care Provider +1 -[phone] Encounter Details Date Type Department Care Team (Late st Contact Info) Description 01/28/2018 11:59 PM EDT Anesthesia [place] [address] Harsha Pérez MD [facility] [place] [address] Anesthesia Record Procedure Summary Procedure Name Responsible [...] 01/24/2024 1:00 PM EDT Appointment Radiology at [place] [address] Walt Bay MD [facility] DR [place] [address] 01/24/2024 2:00 PM EDT Routine Obstetrics and Gynecology at [address]1000 Taty Ramos MD [facility] MATERNAL & [place] [address] 02/07/2024 9:00 AM EDT Appointment Radiology at [place] [address] Walt Bay MD [facility] [address] [place] [address] 02/07/2024 10:15 AM EDT Routine Obstetrics and Gynecology at [address]1000 Linda Diaz MD [facility] MATERNAL [place] [address] 03/12/2024 10:45 AM EST Office Visit Endocrinology at [address]1000 James Barth DO [facility] [place] [address] 05/23/2024 Hospital [place] [address] Maite Malloy MD [facility] DR OBSTETRICS [place] [address] documented as of this encounter Visit Diagnoses Not on filedocumented in this encounter Care Teams Rotary Saw Operator Relationship Specialty Start Date End Date Valencia Adhikari APRN [address] [place] [address] PCP - General 04/21/14 07/04/23 documented as of this encounter
--- OUTSIDE RECORDS SUMMARY | 2024-01-23 17:56 | XMS_ITS | Encounter Summary ---
Author Organization [facility] Address [facility] [place] [address] Care Team Providers Care Grain Trader Name Role Phone Valencia Adhikari APRN Primary Care Provider +1 [phone] Reason for Referral * Consultation (Routine) - Closed Specialty Diagnoses / Procedures Referred By Lamont riggins Referred To Contact Pain Management Diagnoses Scapular dyskinesis Alicia Oviedo APRN [facility] [place] [address] [facility] [address] [place] [address] Referral ID Status Reason Start Date Expiration Date V isits Requested Visits Authorized [id number] Closed Consult, Test & Treat 11/16/2017 11/16/2018 1 1 Reason for Visit * Reason Comments Left Shoulder Pain workers comp DOI Encounter Details Date Type Department Care Team (Late st Contact Info) Description 11/16/2017 10:20 AM EDT [place] [address] Alicia Oviedo APRN [facility] [place] [address] Scapular dyskinesis (Primary Dx); Chronic [...] this encounter Progress Notes * Alicia Oviedo, SPRING INTERN - 11/16/2017 10:20 AM EDT Chief complaint: chronic work related LEFT shoulder pain Problem List Items Addressed This Visit Chronic left shoulder pain Scapular dyskinesis Work Related : YES DOI: 09/06/2017 History of present illness[facility] [facility] a 27 y.o. year-old female [...] she may need to consider a functional quaker program and alternate vocation. Pt agrees, questions [...] 01/24/2024 1:00 PM [place] [address] Walt Bay MD [facility] OBSTETRICS [place] [address] 01/24/2024 2:00 PM EDT Routine Obstetrics and Gynecology at [address] Taty Ramos MD [facility] MATERNAL & [place] [address] 02/07/2024 9:00 AM EDT Appointment Radiology at [place] [address] Walt Bay MD [facility] OBSTETRICS [place] [address] 02/07/2024 10:15 AM EDT Routine Obstetrics and Gynecology at [place] [address] Linda Diaz MD [facility] MATERNAL [place] [address] 03/12/2024 10:45 AM EST Office Visit Endocrinology at [place] [address] James Barth DO [facility] [place] [address] 05/23/2024 Hospital [place] [address] Maite Malloy MD [facility] OBSTETRICS [place] [address] Scheduled Referrals Name Type Priority Associated Diagnoses Orde r Schedule Referral to Pain Clinic Outpatient Referral Routine Scapular dyskinesis Ordered: 11/16/2017 documented as of this encounter Visit Diagnoses Diagnosis Scapular dyskinesis- Primary Lack of coordination Chronic left shoulder pain Pain in joint, shoulder region documented in this encounter Care Teams Grain Trader Relationship Specialty Start Date End Date Valencia Adhikari APRN [address] [place] [address] PCP - General 04/21/14 07/04/23 documented as of this encounter
--- OUTSIDE RECORDS SUMMARY | 2024-01-23 17:56 | XMS_ITS | Encounter Summary ---
Author Organization [facility] Address [facility] [place] [address] Care Team Providers Care Imposer Name Role Phone OnofreMarilynValencia Oralia SLADE Primary Care Provider +1 -[phone] Encounter Details Date Type Department Care Team (Late st Contact Info) Description 08/09/2017 Telephone Psychiatry [place] [phone] Argelia Mccray APRN [facility] [place] [address] Social History Tobacco Use Types Packs/Day Years [...] 01/24/2024 1:00 PM EDT [place] [address] Walt Bay MD [facility] DR [place] [address] 01/24/2024 2:00 PM EDT Routine Obstetrics and Gynecology at [place] [address] Taty Ramos MD [facility] DR MATERNAL & [place] [address] 02/07/2024 9:00 AM EDT Appointment Radiology at [place] [address] Walt Bay MD [facility] DR OBSTET[place]ICS [place] [address] 02/07/2024 10:15 AM EDT Routine Obstetrics and Gynecology at [address] Linda Diaz MD [facility] [place] [address] 03/12/2024 10:45 AM EST Office Visit Endocrinology at [place] [address] James Barth DO [facility] [place] [address] 05/23/2024 Hospital Encounter Birthing [place] [phone] Maite Malloy MD [facility] DR OBSTETRICS [place] [address] documented as of this encounter Visit Diagnoses Not on filedocumented in this encounter Care Teams Imposer Relationship Specialty Start Date End Date Valencia Adhikari APRN [address] [place] [address] PCP - General 04/21/14 07/04/23 documented as of this encounter
--- OUTSIDE RECORDS SUMMARY | 2024-01-23 17:56 | XMS_ITS | Encounter Summary ---
Author Organization [facility] Address [facility] [place] [address] Care Team Providers Care Vacuum Plastic Forming Machine Operator Name Role Phone Valencia Adhikari APRN Primary Care Provider [phone] [phone] Reason for Visit * Reason Onset Date Comments Questions 05/17/2017 Encounter Details Date Type Department Care Team (Late Contact Info) Description 05/17/2017 Telephone [place] [phone] Kedar Santos MD [facility] DR [place] [address] Questions Social History Tobacco Use Types Packs/Day [...] the patient who advised the images from [facility] ( MRI and XR ) will be sent to [facility] today documented in this encounter Plan of Treatment Upcoming Encounters Date Type Department Care Team (Late st Contact Info) Description 01/24/2024 1:00 PM EDT Appointment Radiology at [place] [address] Walt Bay MD [facility] OBSTETRICS [place] [address] 01/24/2024 2:00 PM EDT Routine Obstetrics and Gynecology at [address]1000 Taty Ramos MD [facility] MATERNAL & [place] [address] 02/07/2024 9:00 AM EDT Appointment Radiology at [place] [address] Walt Bay MD [facility] OBSTETRICS [place] [address] 02/07/2024 10:15 AM EDT Routine Obstetrics and Gynecology at [address]1000 Linda Diaz MD [facility] MATERNAL [place] [address] 03/12/2024 10:45 AM EST Office Visit Endocrinology at [address] James Barth DO [facility] [place] [address] 05/23/2024 Hospital [place] [address] Maite Malloy MD [facility] OBSTETRICS [place] [address] documented as of this encounter Visit Diagnoses Not on filedocumented in this encounter Care Teams Vacuum Plastic Forming Machine Operator Relationship Specialty Start Date End Date Valencia Adhikari APRN [address] [place] [address] PCP - General 04/21/14 07/04/23 documented as of this encounter
--- OUTSIDE RECORDS SUMMARY | 2024-01-23 17:56 | XMS_ITS | Encounter Summary ---
[place] [address] Care Team Providers Care Strap Folding Machine Operator Name Role Phone OnofreMarilynValencia Oralia SLADE Primary Care Provider [phone] [phone] Encounter Details Date Type Department Care Team (Late st Contact Info) Description 02/05/2018 Telephone [place] [address] Negar Wilkes Social History Tobacco [...] come in. She does not have a buggy driver that day. documented in this encounter Plan of Treatment Upcoming Encounters Date Type Department Care Team (Late st Contact Info) Description 01/24/2024 1:00 PM EDT [place] [address] Walt Bay MD [facility] OBSTETRICS [place] [address] 01/24/2024 2:00 PM EDT Routine Obstetrics and Gynecology at [place] [address] Taty Ramos MD [facility] MATERNAL & [place] [address] 02/07/2024 9:00 AM EDT Appointment Radiology at [place] [address] Walt Bay MD [facility] OBSTETRICS [place] [address] 02/07/2024 10:15 AM EDT Routine Obstetrics and Gynecology at [place] [address] Linda Diaz MD [facility] MATERNAL [place] [address] 03/12/2024 10:45 AM EST Office Visit Endocrinology at [place] [address] James Barth DO [facility] ENDO[place]IN[place] [address] 05/23/2024 Hospital Encounter Birthing [address] Maite Malloy MD [facility] OBSTETRICS [place] [address] documented as of this encounter Visit Diagnoses Not on filedocumented in this encounter Care Teams Strap Folding Machine Operator Relationship Specialty Start Date End Date Valencia Adhikari APRN [address] [place] [address] PCP - General 04/21/14 07/04/23 documented as of this encounter
--- OUTSIDE RECORDS SUMMARY | 2024-01-23 17:56 | XMS_ITS | Encounter Summary ---
Author Organization [facility] [place] [address] Care Team Providers Care Phlebotomist Lab Assistant Name Role Phone Onofre Valencia Barton APRN Primary Care Provider +1 -[phone] Reason for Visit * Reason Onset Date Comments Medication Refill 06/27/2017 Encounter Details Date Type Department Care Team (Late st Contact Info) Description 06/27/2017 [place] [phone] Yolanda Salomon RN Left shoulder pain, unspecified [...] left shoulder injection under fluoroscopy in the [facility] on with Dr. Altamirano. How is this medication being used currently: She is using 1/2-1 patch daily. She uses the gel from 1-4 times daily. Pain level: The meds have reduced her pain by 30-40%. Other pain medications used and how: n/a. New Prescription written for: Lidocaine #30 patch daily on 12hours and off 12 hours. Diclofenac egc186 g apply 2 g topically 4x/day. Prescription sent electronically to [facility] by in [place], [place]. The patient knows how to contact orthopaedics if any further questions or concerns occur. documented in this encounter Plan of Treatment Upcoming Encounters Date Type Department Care Team (Late st Contact Info) Description 01/24/2024 1:00 PM EDT Appointment Radiology at [place] [phone] Simin Bay MD [facility] OBSTETRICS [place] [address] 01/24/2024 2:00 PM EDT Routine Obstetrics [place] [address] Taty Ramos MD [facility] MATERNAL & [place] [address] 02/07/2024 9:00 AM EDT Appointment Radiology at [place] [phone] Simin Bay MD [facility] OBSTETRICS [place] [address] 02/07/2024 10:15 AM EDT Routine Obstetrics and [place] [address] Linda Diaz MD [facility] [place] [address] 03/12/2024 10:45 AM EST Office Visit Endocr[place] [address] James Barth DO [facility] [place] [address] 05/23/2024 Hospital Encounter Birthing [place] [phone] Maite Malloy MD [facility] DR OBSTETRICS [place] [address] documented as of this encounter Visit Diagnoses Diagnosis Left shoulder pain, unspecified chronicity documented in this encounter Care Teams Phlebotomist Lab Assistant Relationship Specialty Start Date End Date Valencia Adhikari APRN [address] [place] [address] PCP - General 04/21/14 07/04/23 documented as of this encounter
--- OUTSIDE RECORDS SUMMARY | 2024-01-23 17:56 | XMS_ITS | Encounter Summary ---
Author Organization [facility] [place] [address] Care Team Providers Care Estate Manager Name Role Phone Valencia Adhikari APRN Primary Care Provider [phone] [phone] Encounter Details Date Type Department Care Team (Late st Contact Info) Description 08/09/2017 Telephone Psychiatry [place] [phone] Geovanna Méndez Social History Tobacco Use Types [...] for her there. Her phone number is [phone] Sandie Austin documented in this encounter Plan of Treatment Upcoming Encounters Date Type Department Care Team (Late st Contact Info) Description 01/24/2024 1:00 PM EDT Appointment Radiology at [place] [address] Walt Bay MD [facility] OBSTETRICS [place] [address] 01/24/2024 2:00 PM EDT Routine Obstetrics and Gynecology at [place] [address] Taty Ramos MD [facility] DR MATERNAL & [place] [address] 02/07/2024 9:00 AM EDT Appointment Radiology at [place] [address] Walt Bay MD [facility] DR OBSTETRICS [place] [address] 02/07/2024 10:15 AM EDT Routine Obstetrics and Gynecology at [place] [address] Linda Diaz MD [facility] DR MATERNAL [place] [address] 03/12/2024 10:45 AM EST Office Visit Endocrinology at [address]1000 James Barth DO [facility] [place] [address] 05/23/2024 Hospital [place] [address] Maite Malloy MD [facility] DR OBSTETRICS [place] [address] documented as of this encounter Visit Diagnoses Not on filedocumented in this encounter Care Teams Estate Manager Relationship Specialty Start Date End Date Valencia Adhikari APRN [address] [place] [address] PCP - General 04/21/14 07/04/23 documented as of this encounter
--- OUTSIDE RECORDS SUMMARY | 2024-01-23 17:56 | XMS_ITS | Encounter Summary ---
Author Organization [facility] Address [facility] [place] [address] Care Team Providers Care Historic Interpreter Name Role Phone OnofreMarilyn pittshryn Oralia SLADE Primary Care Provider +1 -[phone] Reason for Visit * Reason Onset Date Comments Medication Refill 08/02/2018 Encounter Details Date Type Department Care Team (Late st Contact Info) Description 08/02/2018 Refill Psychiatry [place] [phone] Osmar South RN Anxiety Social History Tobacco [...] 01/24/2024 1:00 PM [place] [address] Walt Bay MD [facility] DR OBSTETRICS [place] [address] 01/24/2024 2:00 PM EDT Routine Obstetrics and Gynecology at [place] [address] Taty Ramos MD [facility] DR MATERNAL & [place] [address] 02/07/2024 9:00 AM EDT Appointment Radiology at [place] [address] Walt Bay MD [facility] DR OBSTET[place]ICS [place] [address] 02/07/2024 10:15 AM EDT Routine Obstetrics and Gynecology at [place] [address] Linda Diaz MD [facility] [place] [address] 03/12/2024 10:45 AM EST Office Visit Endocrinology at [place] [address] James Barth DO [facility] [place] [address] 05/23/2024 Hospital Encounter Birthing [place] [address] Maite Malloy MD [facility] DR OBSTETRICS [place] [address] documented as of this encounter Visit Diagnoses Diagnosis Anxiety Anxiety state, unspecified documented in this encounter Care Teams Historic Interpreter Relationship Specialty Start Date End Date Valencia Adhikari APRN [address] [place] [address] PCP - General 04/21/14 07/04/23 documented as of this encounter
--- OUTSIDE RECORDS SUMMARY | 2024-01-23 17:57 | XMS_ITS | Encounter Summary ---
Author Organization [facility] Address [facility] [place] [address] Care Team Providers Care Bakery Worker Name Role Phone Valencia Adhikari APRN Primary Care Provider [phone] -[phone] Reason for Visit * Reason Comments Left Knee Pain Encounter Details Date Type Department Care Team (Late st Contact Info) Description 04/21/2014 1:30 PM EST Office Visit [place] [phone] Joshua Padron MD [facility] [place] [address] Alysa Lauren MD [facility] [place] [address] Left knee pain Discharge Disposition: Home Social [...] her leg. She was eventually seen at [facility] where she had x-rays and they were [...] 01/24/2024 1:00 PM EDT Appointment Radiology at [place] [address] Walt Bay MD [facility] DR OBSTETRICS [place] [address] 01/24/2024 2:00 PM EDT Routine Obstetrics and Gynecology at [address]1000 Taty Ramos MD [facility] DR MATERNAL & [place] [address] 02/07/2024 9:00 AM EDT Appointment Radiology at [place] [address] Walt Bay MD [facility] DR OBSTETRICS [place] [address] 02/07/2024 10:15 AM EDT Routine Obstetrics [place] [address] Linda Diaz MD [facility] [address] [place]NAL [place] [address] 03/12/2024 10:45 AM EST Office Visit Endocrinology at [place] [address] James Barth DO [facility] [place] [address] 05/23/2024 Hospital [place] [address] Maite Malloy MD [facility] OBSTETRICS [place] [address] documented as of this encounter Visit Diagnoses Diagnosis Left knee pain Pain in joint, lower leg documented in this encounter Care Teams Bakery Worker Relationship Specialty Start Date End Date Valencia Adhikari APRN [address] [place] [address] PCP - General 04/21/14 07/04/23 documented as of this encounter
--- OUTSIDE RECORDS SUMMARY | 2024-01-23 17:57 | XMS_ITS | Encounter Summary ---
Author Organization [facility] [place] [address] Care Team Providers Care Oyster Washer Name Role Phone None Primary Care Provider Unavailabl e Encounter Details Date Type Department Care Team (Late st Contact Info) Description 07/04/2013 Telephone [place] [address] Omayra Meredith LPN Social History Tobacco Use [...] 01/24/2024 1:00 PM EDT Appointment Radiology at [place] [address] Walt Bay MD [facility] [place] [address] 01/24/2024 2:00 PM EDT Routine Obstetrics and Gynecology at [address]1000 Taty Ramos MD [facility] MATERNAL & [place] [address] 02/07/2024 9:00 AM EDT Appointment Radiology at [place] [address] Walt Bay MD [facility] [place] [address] 02/07/2024 10:15 AM EDT Routine Obstetrics and Gynecology at [address]1000 Linda Diaz MD [facility] [place] [address] 03/12/2024 10:45 AM EST Office Visit Endocrinology at [address]1000 James Barth DO [facility] [place] [address] 05/23/2024 Hospital Encounter Birthing [address] Maite Malloy MD [facility] DR OBSTETRICS [place] [address] documented as of this encounter Visit Diagnoses Not on filedocumented in this encounter Care Teams Oyster Washer Relationship Specialty Start Date End Date None None PCP - General 05/08/12 04/20/14 documented as of this encounter
--- OUTSIDE RECORDS SUMMARY | 2024-01-23 17:57 | XMS_ITS | Encounter Summary ---
Author Organization [facility] Address [facility] [place] [address] Care Team Providers Care Head Of Music Name Role Phone Valencia Adhikari APRN Primary Care Provider [phone] [phone] Encounter Details Date Type Department Care Team (Latest Contact Info) Description 02/06/2016 12:05 AM EDT - 02/06/2016 12:09 AM EDT Hospital Encounter Radiology Library at [facility] [place] [phone] Kedar Santos MD [facility] [place] [address] Discharge Disposition: Home Social History Tobacco Use [...] 01/24/2024 1:00 PM EDT Appointment Radiology at [address]1000 Walt Bay MD [facility] DR OBSTET[place] [address] 01/24/2024 2:00 PM EDT Routine Obstetrics and Gynecology at [address]1000 Taty Rmaos MD [facility] DR MATERNAL & [place] [address] 02/07/2024 9:00 AM EDT Appointment Radiology at [address]1000 Walt Bay MD [facility] [place] [address] 02/07/2024 10:15 AM EDT Routine Obstetrics and Gynecology at [place] [phone] Linda Diaz MD [facility] [place] [address] 03/12/2024 10:45 AM EST Office [place] [address] James Barth DO [facility] [place] [address] 05/23/2024 Hospital Encounter Birthing [facility] [place] [address] Maite Malloy MD [facility] DR OBSTETRICS [place] [address] documented as of this encounter Procedures Procedure Name Priority Date/Time Associated Diagnosis Comments FILM LIBRARY STORAGE ONLY DX SHOULDER Routine 02/06/2016 12:05 AM EDT documented in this encounter Results * Film Library- Storage Only DX Shoulder (02/06/2016 12:05 AM EDT) Narrative [facility] - 05/17/2017 11:23 AM EST This exam is for storage only and is auto-finalizing. Kedar Santos MD G FILM LIBRARY ORD ERABLES [place], [place] documented in this encounter Visit Diagnoses Not on filedocumented in this encounter Care Teams Head Of Music Relationship Specialty Start Date End Date Valencia Adhikari APRN [address] [place] [address] PCP - General 04/21/14 07/04/23 documented as of this encounter
--- OUTSIDE RECORDS SUMMARY | 2024-01-23 17:57 | XMS_ITS | Encounter Summary ---
Author Organization [facility] [place] [address] Care Team Providers Care Ribbing Machine Operator Name Role Phone Valencia Ahdikari APRN Primary Care Provider +1 [phone] Reason for Referral * Consultation (Routine) - Closed Specialty Diagnoses / Procedures Referred By Lamont t Referred To Contact Pain Management Diagnoses Chronic left shoulder pain Kedar Santos MD [facility] [place] [address] [facility] [address] [place] [address] Referral ID Status Reason Start Date Expiration Date V isits Requested Visits Authorized [id number] Closed Consult, Test & Treat 05/15/2017 05/15/2018 1 1 Reason for Visit * Reason Comments Left Shoulder Pain DOI 09/06/2016 W/C Encounter Details Date Type Department Care Team (Late st Contact Info) Description 05/15/2017 11:30 AM EST Office [place] [address] Kedar Santos MD [facility] ORTHOPAEDIC SURGERY [place], [place] [phone] Chronic left shoulder pain Social History Tobacco [...] available for review but was done at [facility] and was reportedly negative. Next [...] 01/24/2024 1:00 PM EDT Appointment Radiology at [place] [phone] Walt Bay MD [facility] DR [place] [address] 01/24/2024 2:00 PM EDT Routine Obstetrics and Gynecology at [place] [phone] Taty Ramos MD [facility] MATERNAL & [place] [address] 02/07/2024 9:00 AM EDT Appointment Radiology at [place] [phone] Walt Bay MD [facility] [place] [address] 02/07/2024 10:15 AM EDT Routine Obstetrics [place] [address] Linda Diaz MD [facility] [place] [address] 03/12/2024 10:45 AM EST Office Visit Endocrinology at [address] James Barth DO [facility] [place] [address] 05/23/2024 Hospital [place] [address] Maite Malloy MD [facility] [place] [address] Scheduled Referrals Name Type Priority Associated Diagnoses Orde r Schedule Referral to Pain Clinic Outpatient Referral Routine Chronic left shoulder pain Ordered: 05/15/2017 documented as of this encounter Visit Diagnoses Diagnosis Chronic left shoulder pain Pain in joint, shoulder region documented in this encounter Care Teams Ribbing Machine Operator Relationship Specialty Start Date End Date Valencia Adhikari APRN [address] [place] [address] PCP - General 04/21/14 07/04/23 documented as of this encounter
--- OUTSIDE RECORDS SUMMARY | 2024-01-23 17:57 | XMS_ITS | Encounter Summary ---
Author Organization [facility] Address [facility] [place] [address] Care Team Providers Care Donor Processor Name Role Phone Valencia Adhikari APRN Primary Care Provider +1 [phone] Encounter Details Date Type Department Care Team (Latest Contact Info) Description 03/20/2017 1:52 PM EST - 03/20/2017 11:59 PM [facility] Hospital Encounter XRay at [address] [place] [address] Kedar Santos MD [facility] [place] [address] Left shoulder pain, unspecified chronicity Discharge Disposition: [...] 01/24/2024 1:00 PM EDT Appointment Radiology at [place] [phone] Walt Bay MD [facility] DR OBSTETRICS [place] [address] 01/24/2024 2:00 PM EDT Routine Obstetrics and Gynecology at [place] [phone] Taty Ramos MD [facility] MATERNAL & [place] [address] 02/07/2024 9:00 AM EDT Appointment Radiology at [place] [phone] Walt Bay MD [facility] OBSTETRICS [place] [address] 02/07/2024 10:15 AM EDT Routine Obstetrics [place] [address] Linda Diaz MD [facility] MATERNAL [place] [address] 03/12/2024 10:45 AM EST Office [place] [address] James Barth DO [facility] [place] [address] 05/23/2024 Hospital [place] [address] Maite Malloy MD [facility] OBSTETRICS [place] [address] documented as of this encounter Procedures Procedure [...] under fluoroscopy. Resident/Fellow: None Attending: Dr. Amanda RODGERS Procedure performed by Sally Joya APRN Narrative 03/20/2017 4:16 PM EST HISTORY: Left shoulder pain, inject for diagnostic/therapeutic purposes. LEFT SHOULDER JOINT INJECTION UNDER FLUOROSCOPY TECHNIQUE: After an extensive conversation with the patient regarding risks and benefits, oral and written consent were obtained. ??A pre- procedural time-out was performed as per [facility] protocol. The patient was placed supine on [...] glenohumeral joint space. 2. ??PAIN SCORE: ??Before: 9-10 ??After: -01/23 3. Fluoroscopy time: 0.10 minutes [...] A pre- proceduraltime-out was performed as per [facility] protocol. The patient was placed supine on [...] glenohumeral joint space. 2. PAIN SCORE: Before: 9-/10 After: -01/23 3. Fluoroscopy time: 0.10 minutes 4. Medications: Lidocaine 1% - <5 ml, for subcutaneous anesthesia Ropivacaine HCL 0.5% - 3 ml Triamciolone Acetonide - 40 mg COMPLICATIONS: None immediate. POST-PROCEDURE CARE: Information regarding monitor of infection, post- procedural pain and management of steroid flare were reviewed withpatient. IMPRESSION Uneventful left glenohumeral injection under fluoroscopy. Resident/Fellow: None Attending: Dr. Amanda RODGERS Procedure performed by Sally Joya APRN Kedar Santos MD IMG FLUORO ORDERABLE S * US Guided Tendon Sheath Injection Left (03/20/2017 3:21 PM EST) Anatomical Region Laterality Modality Left Radio Fluoroscop y Impressions 03/20/2017 4:01 PM EST Uneventful left long head the biceps tendon sheath joint injection under sonographic guidance. Resident/ Fellow: None. Attending: Amanda RODGERS M.D. I performed this procedure. Narrative 03/20/2017 4:01 PM EST HISTORY: Left shoulder pain. LEFT LONG HEAD OF THE BICEPS TENDON SHEATH INJECTION UNDER SONOGRAPHIC GUIDANCE TECHNIQUE: After an extensive conversation with the patient regarding risks and benefits, oral and written consent were obtained. ??A pre- procedural time-out was performed as per [facility] protocol. The patient was placed supine on [...] were reviewed with patient. Procedure Note Amanda Rodgers MD - 03/20/2017 HISTORY: Left shoulder pain. LEFT LONG HEAD OF THE BICEPS TENDON SHEATH INJECTION UNDER SONOGRAPHICGUIDANCE TECHNIQUE: After an extensive conversation with the patient regarding risks andbenefits, oral and written consent were obtained. A pre- procedural time-out was performed as per [facility] protocol. The patient was placed supine on [...] the bicepstendon sheath. 2. PAIN SCORE: Before: 9/10 After: 9/10 3. Medications: Lidocaine 1% - <5 ml, [...] sonographic guidance. Resident/ Fellow: None. Attending: Amanda RODGERS M.D. I performed this procedure. [facility] ORDER[facility]L ES documented in this [...] (Left) documented in this encounter Care Teams Donor Processor Relationship Specialty Start Date End Date Valencia Adhikari APRN [address] [place] [address] PCP - General 04/21/14 07/04/23 documented as of this encounter
--- OUTSIDE RECORDS SUMMARY | 2024-01-23 17:57 | XMS_ITS | Encounter Summary ---
Author Organization [facility] [place] [address] Care Team Providers Care Volunteer Coordinator Name Role Phone None Primary Care Provider Unavailabl e Reason for Visit * Reason Onset Date Comments Medication Refill 12/17/2012 Encounter Details Date Type Department Care Team (Late st Contact Info) Description 12/17/2012 Refill [place] [phone] Griffin Wallis III, MD [facility] [place] [address] Social History Tobacco Use Types Packs/Day Years [...] 01/24/2024 1:00 PM EDT [place] [address] Walt Bay MD [facility] OBSTETRICS [place] [address] 01/24/2024 2:00 PM EDT Routine Obstetrics and Gynecology at [place] [address] Taty Ramos MD [facility] MATERNAL & [place] [address] 02/07/2024 9:00 AM EDT Appointment Radiology at [place] [address] Walt Bay MD [facility] OBSTETRICS [place] [address] 02/07/2024 10:15 AM EDT Routine Obstetrics and Gynecology at [address] Linda Diaz MD [facility] [place] [address] 03/12/2024 10:45 AM EST Office Visit Endocrinology at [place] [address] James Barth DO [facility] [place] [address] 05/23/2024 Hospital Encounter Birthing [place] [phone] Maite Malloy MD [facility] OBSTETRICS [place] [address] documented as of this encounter Visit Diagnoses Not on filedocumented in this encounter Care Teams Volunteer Coordinator Relationship Specialty Start Date End Date None None PCP - General 05/08/12 04/20/14 documented as of this encounter
--- OUTSIDE RECORDS SUMMARY | 2024-01-23 17:57 | XMS_ITS | Encounter Summary ---
Author Organization [facility] [place] [address] Care Team Providers Care Superintendent Radio Communications Name Role Phone Vlaencia Adhikari APRN Primary Care Provider [phone] [phone] Encounter Details Date Type Department Care Team (Late st Contact Info) Description 05/08/2016 4:00 PM EST Office Visit Obstetrics [place] [phone] Valencia Bourne CNM [facility] OBSTETRICS & [place] [address] IUD check up Social History Tobacco Use [...] 01/24/2024 1:00 PM EDT Appointment Radiology at [place] [phone] Walt Bay MD [facility] OBSTETRICS [place] [address] 01/24/2024 2:00 PM EDT Routine Obstetrics [place] [address] Taty Ramos MD [facility] MATERNAL & [place] [address] 02/07/2024 9:00 AM EDT Appointment [place] [address] Walt Bay MD [facility] OBSTETRICS [place] [address] 02/07/2024 10:15 AM EDT Routine Obstetrics and Gynecology at [place] [phone] Linda Diaz MD [facility] [place] [address] 03/12/2024 10:45 AM EST Office [place] [address] James Barth DO [facility] [place] [address] 05/23/2024 Hospital Encounter Birthing [place] [phone] Maite Malloy MD [facility] DR OBSTETRICS [place] [address] documented as of this encounter Visit Diagnoses Diagnosis IUD check up Surveillance of previously prescribed intrauterine contraceptive device documented in this encounter Care Teams Superintendent Radio Communications Relationship Specialty Start Date End Date Valencia Adhikari APRN [address] [place] [address] PCP - General 04/21/14 07/04/23 documented as of this encounter
--- OUTSIDE RECORDS SUMMARY | 2024-01-23 17:57 | XMS_ITS | Encounter Summary ---
Author Organization [facility] Address [facility] [place] [address] Care Team Providers Care Marshmallow Maker Name Role Phone Valencia Adhikari APRN Primary Care Provider +1 [phone] Reason for Referral * Physical Therapy (Routine) - Specialty Diagnoses / Procedures Referred By Lamont riggins Referred To Contact Diagnoses Left shoulder pain, unspecified chronicity Kedar Santos MD [facility] [place] [address] Referral ID Status Reason Start Date Expiration Date V isits Requested Visits Authorized [id number] Evaluate and Treat 02/27/2017 08/26/2017 12 12 Encounter Details Date Type Department Care Team (Late st Contact Info) Description 02/27/2017 Telephone [place] [address] Lexii Martinez, RN Social History Tobacco Use [...] from Dr. Santos. PT order faxed to [place], [place], , the PT office of patient's choice.Message out to schedulers to reach out and schedule the injections. Patient encouraged to call the clinicif any questions/ concerns arise. documented in this encounter Plan of Treatment Upcoming Encounters Date Type Department Care Team (Late st Contact Info) Description 01/24/2024 1:00 PM EDT Appointment [place] [address] Walt Bay MD [facility] DR [place] [address] 01/24/2024 2:00 PM EDT Routine Obstetrics [place] [address] Taty Ramos MD [facility] MATERNAL & [place] [address] 02/07/2024 9:00 AM EDT Appointment [place] [address] Walt Bay MD [facility] DR OBSTETRICS [place] [address] 02/07/2024 10:15 AM EDT Routine Obstetrics and Gynecology at [address]1000 Linda Diaz MD [facility] MATERNAL [place] [address] 03/12/2024 10:45 AM EST Office Visit Endocrinology at [address]1000 James Barth DO [facility] [place] [address] 05/23/2024 Hospital Encounter Birthing [place] [phone] Maite Malloy MD [facility] DR OBSTETRICS [place] [address] Scheduled Referrals Name Type Priority Associated Diagnoses Orde r Schedule Referral to Physical Therapy Outpatient Referral Routine Left Shoulder Pain, Unspecified Chronicity Ordered: 02/27/2017 documented as of this encounter Visit Diagnoses Diagnosis Left shoulder pain, unspecified chronicity documented in this encounter Care Teams Marshmallow Maker Relationship Specialty Start Date End Date Valencia Adhikari APRN [address] [place] [address] PCP - General 04/21/14 07/04/23 documented as of this encounter
--- OUTSIDE RECORDS SUMMARY | 2024-01-23 17:57 | XMS_ITS | Encounter Summary ---
Author [facility] [place] [address] Care Team Providers Care Wharf Tender Name Role Phone Valencia Adhikari APRN Primary Care Provider +1 [phone] Encounter Details Date Type Department Care Team (Latest Contact Info) Description 04/12/2016 10:00 AM EST - 04/12/2016 11:59 PM [facility] Hospital En[place] [address] Valencia Adhikari APRN [address] [place], [place] [address] Galactorrhea Discharge Disposition: Home Social History Tobacco [...] 01/24/2024 1:00 PM EDT Appointment Radiology at [place] [phone] Simin Bay MD [facility] DR OBSTETRICS [place] [address] 01/24/2024 2:00 PM EDT Routine Obstetrics and Gynecology at [place] [phone] Taty Ramos MD [facility] DR MATERNAL & [place] [address] 02/07/2024 9:00 AM EDT [place]ointment [place] [address]1000 Simin Bay MD [facility] DR OBSTET[place]ICS [place] [address] 02/07/2024 10:15 AM EDT Routine Obstetrics [place] [address] Linda Diaz MD [facility] [place] [address] 03/12/2024 10:45 AM EST Office Visit [place] [phone] James Barth DO [facility] [place] [address] 05/23/2024 Hospital [place] [address] Maite Malloy MD [facility] OBSTET[place]ICS [place] [address] documented as of this encounter Procedures Procedure [...] childbirth documented in this encounter Care Teams Wharf Tender Relationship Specialty Start Date End Date Valencia Adhikari APRN [address] [place] [address] PCP - General 04/21/14 07/04/23 documented as of this encounter
--- OUTSIDE RECORDS SUMMARY | 2024-01-23 17:57 | XMS_ITS | Encounter Summary ---
Author Organization [facility] Address [facility] [place] [address] Care Team Providers Care Ballet Master/Mistress Name Role Phone Valencia Adhikari APRN Primary Care Provider +1 [phone] Reason for Visit * Reason Comments Left Knee Pain Encounter Details Date Type Department Care Team (Late st Contact Info) Description 05/05/2014 2:30 PM EST Office [place] [phone] Joshua Padron MD [facility] [place] [address] Left knee pain Discharge Disposition: Home Social [...] 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 We will see her back only if needed. documented in this encounter Plan of Treatment Upcoming Encounters Date Type Department Care Team (Late st Contact Info) Description 01/24/2024 1:00 PM EDT [place] [phone] Walt Bay MD [facility] OBSTETRICS [place] [address] 01/24/2024 2:00 PM EDT Routine Obstetrics and Gynecology at [address]1000 Taty Ramos MD [facility] DR MATERNAL & [place] [address] 02/07/2024 9:00 AM EDT Appointment Radiology at [place] [address] Walt Bay MD [facility] DR OBSTETRICS [place] [address] 02/07/2024 10:15 AM EDT Routine Obstetrics and Gynecology at [address]1000 Linda Diaz MD [facility] [place] [address] 03/12/2024 10:45 AM EST Office Visit Endocrinology at [address]1000 James Barth DO [facility] [place] [address] 05/23/2024 [place] [address] Maite Malloy MD [facility] DR OBSTETRICS [place] [address] documented as of this encounter Visit Diagnoses Diagnosis Left knee pain Pain in joint, lower leg documented in this encounter Care Teams Ballet Master/Mistress Relationship Specialty Start Date End Date Valencia Adhikari APRN [address] [place] [address] PCP - General 04/21/14 07/04/23 documented as of this encounter
--- OUTSIDE RECORDS SUMMARY | 2024-01-23 17:57 | XMS_ITS | Encounter Summary ---
[place] [address] Care Team Providers Care Top Lifter Name Role Phone Valencia Adhikari APRN Primary Care Provider [phone] [phone] Reason for Referral * Diagnostic Test (Routine) - Closed Specialty Diagnoses / Procedures Referred By Lamont riggins Referred To Contact Radiology Diagnoses Paresthesias/numbness Procedures MRI Brain wwo Contrast (Generic) Joceline Bustillo APRN [address] [place] [address] [place] [address] Referral ID Status Reason Start Date Expiration Date V isits Requested Visits Authorized [id number] Closed Specialty Service Requested 01/12/2017 01/12/2018 1 1 Reason for Visit * Diagnostic Test (Routine) - Closed Specialty Diagnoses / Procedures Referred By Contac gilson Referred To Contact Radiology Diagnoses Paresthesias/numbness Procedures MRI Brain wwo Contrast (Generic) Joceline Bustillo APRN [address] [place] [address] [place] [address] Referral ID Status Reason Start Date Expiration Date V isits Requested Visits Authorized [id number] Closed Specialty Service Requested 01/12/2017 01/12/2018 1 1 Encounter Details Date Type Department Care Team (Latest Contact Info) Description 02/09/2017 8:18 AM EDT - 02/09/2017 11:59 PM EDT Hospital [place] [address] Joceline Bustillo APRN [address] [place] [address] Paresthesias/numbne ss Discharge Disposition: Home Social History [...] 01/24/2024 1:00 PM EDT [place] [address] Walt Bay MD [facility] OBSTETRICS [place] [address] 01/24/2024 2:00 PM EDT Routine Obstetrics and Gynecology at [address]1000 Taty Ramos MD [facility] MATERNAL & [place] [address] 02/07/2024 9:00 AM EDT Appointment Radiology at [place] [address] aWlt Bay MD [facility] OBSTETRICS [place] [address] 02/07/2024 10:15 AM EDT Routine Obstetrics and Gynecology at [place] [address] Linda Diaz MD [facility] MATERNAL [place] [address] 03/12/2024 10:45 AM EST Office Visit Endocrinology at [place] [address] James Barth DO [facility] ENDOCRINOLOG[place] [address] 05/23/2024 [place] [address] Maite Malloy MD [facility] OBSTETRICS [place] [address] documented as of this encounter Procedures Procedure [...] or abnormal enhancement. 11:17 AM Joceline Bustillo HOSPITALIST NOCTURNIST PHYSICIAN IMG MRI ORDERABL ES documented in this [...] mLs documented in this encounter Care Teams Top Lifter Relationship Specialty Start Date End Date Valencia Adhikari APRN [address] [place] [address] PCP - General 04/21/14 07/04/23 documented as of this encounter
--- OUTSIDE RECORDS SUMMARY | 2024-01-23 17:57 | XMS_ITS | Encounter Summary ---
Author Organization [facility] Address [facility] [place] [address] Care Team Providers Care Construction Trades Teacher Name Role Phone Valnecia Adhikari APRN Primary Care Provider [phone] [phone] Encounter Details Date Type Department Care Team (Latest Contact Info) Description 09/20/2014 - 09/20/2014 11:59 PM EDT Hospital Encounter Radiology Library at [facility] [place] [phone] Kedar Santos MD [facility] [place] [address] Discharge Disposition: Home Social History Tobacco Use [...] 01/24/2024 1:00 PM [place] [address] Walt Bay MD [facility] DR OBSTET[place] [address] 01/24/2024 2:00 PM EDT Routine Obstetrics and Gynecology at [address]1000 Taty Ramos MD [facility] DR MATERNAL [place] [address] 02/07/2024 9:00 AM EDT Appointment Radiology at [place] [phone] Walt Bay MD [facility] OBSTET[place] [address] 02/07/2024 10:15 AM EDT Routine Obstetrics [place] [address] Linda Diaz MD [facility] DR [place]ERNAL [place] [address] 03/12/2024 10:45 AM EST Office Visit Endocrinology at [address]1000 James Barth DO [facility] [place] [address] 05/23/2024 Hospital Encounter Birthing [place] [phone] Maite Malloy MD [facility] DR OBSTETRICS [place] [address] documented as of this encounter Procedures Procedure Name Priority Date/Time Associated Diagnosis Comments FILM LIBRARY STORAGE ONLY DX ELBOW Routine 09/20/2014 12:00 AM EDT documented in this encounter Results * Film Library- Storage Only DX Elbow (09/20/2014 12:00 AM EDT) Narrative [facility] - 05/17/2017 11:27 AM EST This exam is for storage only and is auto-finalizing. Kedar Santos MD G FILM LIBRARY ORD ERABLES [place], [place] documented in this encounter Visit Diagnoses Not on filedocumented in this encounter Care Teams Construction Trades Teacher Relationship Specialty Start Date End Date Valencia Adhikari APRN [address] [place] [address] PCP - General 04/21/14 07/04/23 documented as of this encounter
--- OUTSIDE RECORDS SUMMARY | 2024-01-23 17:57 | XMS_ITS | Encounter Summary ---
Author Organization [facility] Address [facility] [place] [address] Care Team Providers Care Dry House Wheeler Name Role Phone Valencia Adhikari APRN Primary Care Provider [phone] [phone] Reason for Visit * Reason Comments Follow-up string check Encounter Details Date Type Department Care Team (Late st Contact Info) Description 04/11/2016 9:20 AM EST Office Visit Obstetrics [place] [address] Pam Chaidez APRN [facility] OBSTETRICS [place] [address] IUD check up (Primary Dx) Social History [...] Vulva: No lesions. Normal hair distribution. Vagina: [place], moist, rugated. Normal discharge noted. No lesions. [...] 01/24/2024 1:00 PM EDT Appointment Radiology at [place] [address] Walt Bay MD [facility] DR OBSTETRICS [place] [address] 01/24/2024 2:00 PM EDT Routine Obstetrics and Gynecology at [place] [address] Taty Ramos MD [facility] DR MATERNAL & [place] [address] 02/07/2024 9:00 AM EDT Appointment Radiology at [place] [address] Walt Bay MD [facility] DR OBSTETRICS [place] [address] 02/07/2024 10:15 AM EDT Routine Obstetrics and Gynecology at [address]1000 Linda Diaz MD [facility] [place] [address] 03/12/2024 10:45 AM EST Office Visit Endocrinology at [place] [address] James Barth DO [facility] [place] [address] 05/23/2024 Hospital [place] [address] Maite Malloy MD [facility] DR OBSTETRICS [place] [address] documented as of this encounter Visit Diagnoses Diagnosis IUD check up- Primary Surveillance of previously prescribed intrauterine contraceptive device documented in this encounter Care Teams Dry House Wheeler Relationship Specialty Start Date End Date Valencia Adhikari APRN [address] [place] [address] PCP - General 04/21/14 07/04/23 documented as of this encounter
--- OUTSIDE RECORDS SUMMARY | 2024-01-23 17:57 | XMS_ITS | Encounter Summary ---
Author Organization [facility] Address 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, and doesn't know if she felt them [...] 01/24/2024 1:00 PM EDT Appointment Radiology at [place] [phone] Walt Bay MD [facility] DR OBSTETRICS [place] [address] 01/24/2024 2:00 PM EDT Routine Obstetrics [place] [phone] Taty Ramos MD [facility] MATERNAL & [place] [address] 02/07/2024 9:00 AM EDT [place] [phone] Walt Bay MD [facility] OBSTETRICS [place] [address] 02/07/2024 10:15 AM EDT Routine Obstetrics [place] [address] Linda Diaz MD [facility] [place] [address] 03/12/2024 10:45 AM EST Office [place] [phone] James Barth DO [facility] [place] [address] 05/23/2024 Hospital [place] [phone] Maite Malloy MD [facility] DR OBSTETRICS [place] [address] documented as of this encounter Procedures Procedure Name Priority Date/Time Associated Diagnosis Comments GC/CHLAMYDIA Routine 05/08/2016 5:19 PM EST Acute pelvic pain, female GC/CHLAM Routine 05/08/2016 5:19 PM EST Acute pelvic pain, female documented in this encounter Results * GC/Chlam (05/08/2016 5:19 PM EST) GC Gene Amp Negative Negative [facility] Comment: The only FDA approved specimen types for this assay are cervix, vagina, urethra and urine. GC Source Cervical [facility] Chlamydia Gene Amp Negative Negative [facility] Comment: The only FDA approved specimen types for this assay are cervix, vagina, urethra and urine. Chlm Source Cervical [facility] Cervical swab (specimen) 05/08/2016 5:19 PM EST 05/08/2016 5:19 PM EST Narrative Resulting Agency Comment Spec In Lab Richard Faust MD MICROBIOLOGY - GENER AL ORDERABLES [facility] [place] [address] * US Transvaginal Non OB (05/08/2016 2:22 [...] Endometrium has a normal appearance. ? Phylicia Megan March MD Electronically Signed Final Report ?? 05/08/2016 02:35 pm Narrative 05/08/2016 2:35 PM EST Gynecological Report ? (Signed Final 05/08/2016 02:35 pm) PATIENT INFO: ID #: ? [id number] ?: ??[birth year] (25 yrs) Name: ? SORCHA E ? Visit Date: 05/08/2016 02:20 pm ? LOUISE- ? FRANK PERFORMED BY: Performed By: ? Itzel Lezama RDMS Attending: ?Anca LIMA, Phylicia J. Referred By: ?RICHARD FAUST MD Location: ? [facility] SERVICE(S) PROVIDED: ??UTV - Transvaginal - [id number] ?[id number] ??U3D - ??3D rendering with interpretation - [id number] ? [id number] INDICATIONS: ??pelvic pain with IUD in place [...] 05/08/2016 02:35 pm) PATIENT INFO: ID #: [id number] : [birth year] (25 yrs) Name: PREETHI Godoy Visit Date: 05/08/2016 02:20 pm MARIO MARIE PERFORMED BY: Performed By: Itzel Lezama RDMS Attending: Phylicia March MD Referred By: RICHARD FAUST MD Location: [facility] SERVICE(S) PROVIDED: UTV - Transvaginal - [id number] U3D - 3D rendering with interpretation - [id number] INDICATIONS: pelvic pain with IUD in place [...] Signed Final Report 05/08/2016 02:35 pm Richard Faust MD IMG US PELVIC ORDERA BLES documented in this encounter Visit Diagnoses Diagnosis Acute pelvic pain, female- Primary Unspecified symptom associated with female genital organs Acute pelvic pain, female Unspecified symptom associated with female genital organs documented in this encounter Care Teams Oil Exploration Engineer Relationship Specialty Start Date End Date Valencia Adhikari APRN [address] [place] [address] PCP - General 04/21/14 07/04/23 documented as of this encounter
--- OUTSIDE RECORDS SUMMARY | 2024-01-23 17:57 | XMS_ITS | Encounter Summary ---
Author Organization [facility] [place] [address] Care Team Providers Care Events Solutions Consultant Name Role Phone Valencia Adhikari APRN Primary Care Provider +1 [phone] Reason for Visit * Reason Onset Date Comments Other 12/21/2015 Encounter Details Date Type Department Care Team (Late st Contact Info) Description 12/21/2015 Telephone Neurology at [facility] [place] [phone] Neo Pleitez MD [facility] [place] [address] Other Social History Tobacco Use Types Packs/Day [...] asks that I send the order to [facility] lab and I will do that. She will call toschedule her MRI. * Telephone Encounter - Concepcion Dossmadi Hobson - 12/21/2015 1:54 PM EDT Patient called looking for results from labs from this morning Please call [phone] Thanks documented in this encounter Plan of Treatment Upcoming Encounters Date Type Department Care Team (Late st Contact Info) Description 01/24/2024 1:00 PM EDT Appointment Radiology at [address] Walt Bay MD [facility] DR OBSTETRICS [place] [address] 01/24/2024 2:00 PM EDT Routine Obstetrics [place] [address] Taty Ramos MD [facility] DR MATERNAL & [place] [address] 02/07/2024 9:00 AM EDT [place] [address] Walt Bay MD [facility] DR OBSTETRICS [place] [address] 02/07/2024 10:15 AM EDT Routine Obstetrics and Gynecology at [address] Linda Diaz MD [facility] [place] [address] 03/12/2024 10:45 AM EST Office Visit Endocrinology at [address]1000 James Barth DO [facility] [place] [address] 05/23/2024 Hospital [place] [phone] Maite Malloy MD [facility] [place] [address] documented as of this encounter Visit Diagnoses Not on filedocumented in this encounter Care Teams Events Solutions Consultant Relationship Specialty Start Date End Date Valencia Adhikari APRN [address] [place] [address] PCP - General 04/21/14 07/04/23 documented as of this encounter
--- OUTSIDE RECORDS SUMMARY | 2024-01-23 17:57 | XMS_ITS | Encounter Summary ---
Author Organization [facility] [place] [address] Care Team Providers Care Virologist Name Role Phone Valencia Adhikari APRN Primary Care Provider [phone] [phone] Reason for Visit * Reason Comments Other Encounter Details Date Type Department Care Team (Late st Contact Info) Description 04/01/2015 Telephone Obstetrics [place] [phone] Pam Chaidez CLINICAL SCIENCE CONSULTANT [facility] OBSTETRICS [place] [address] Social History Tobacco Use Types Packs/Day Years [...] 01/24/2024 1:00 PM EDT Appointment Radiology at [address]1000 Walt Bay MD [facility] OBSTETRICS [place] [address] 01/24/2024 2:00 PM EDT Routine Obstetrics and Gynecology at [address]1000 Taty Ramos MD [facility] MATERNAL & [place] [address] 02/07/2024 9:00 AM EDT Appointment Radiology at [address]1000 Watl Bay MD [facility] OBSTETRICS [place] [address] 02/07/2024 10:15 AM EDT Routine Obstetrics and Gynecology at [address] Linda Diaz MD [facility] DR MATERNAL [place] [address] 03/12/2024 10:45 AM EST Office Visit Endocrinology at [place] [address] James Barth DO [facility] [place] [address] 05/23/2024 Hospital Encounter Birthing [facility] [place] [phone] Maite Malloy MD [facility] OBSTETRICS [place] [address] documented as of this encounter Visit Diagnoses Not on filedocumented in this encounter Care Teams Virologist Relationship Specialty Start Date End Date Valenica Adhikari APRN [address] [place] [address] PCP - General 04/21/14 07/04/23 documented as of this encounter
--- OUTSIDE RECORDS SUMMARY | 2024-01-23 17:57 | XMS_ITS | Encounter Summary ---
Author Organization [facility] [place] [address] Care Team Providers Care Ramp Service Employee Name Role Phone None Primary Care Provider Unavailrisa e Encounter Details Date Type Department Care Team (Late st Contact Info) Description 04/17/2014 Tele[place] [phone] aTty Browne Social History Tobacco Use Types Packs/Day [...] Name: Andree Hummel : 1990 Phone number: [phone] (home) Mailing address: [place] [address] Age: 23 y.o. Appointment date: TBD Appointment [...] 04/15/14 [facility] [place] PH: [phone] FAX: [phone] IMG PUSH MRI: No CT Scan: No [...] copy to your next appointment. Advance Directive digital field service technician: New patient with knee pain under age of 55. MyDH Do you have a MyDH account? No - Patient Declined - MOM BOOKED documented in this encounter Plan of Treatment Upcoming Encounters Date Type Department Care Team (Late st Contact Info) Description 01/24/2024 1:00 PM EDT Appointment Radiology at [address] [facility] OBSTETRICS [place] [address] 01/24/2024 2:00 PM EDT Routine Obstetrics and Gynecology at [place] [phone] [facility] MATERNAL & [place] [address] 02/07/2024 9:00 AM EDT Appointment Radiology at [place] [phone] [facility] OBSTETRICS [place] [address] 02/07/2024 10:15 AM EDT Routine Obstetrics and Gynecology at [place] [phone] [facility] [place] [address] 03/12/2024 10:45 AM EST Office Visit Endocrinology at [place] [phone] [facility] [place] [address] 05/23/2024 Hospital Encounter Birthing [place] [phone] [facility] DR OBSTETRICS [place] [address] documented as of this encounter Visit Diagnoses Not on filedocumented in this encounter Care Teams Ramp Service Employee Relationship Specialty Start Date End Date None None PCP - General 05/08/12 04/20/14 documented as of this encounter
--- OUTSIDE RECORDS SUMMARY | 2024-01-23 17:57 | XMS_ITS | Encounter Summary ---
Author Organization [facility] Address [facility] [place] [address] Care Team Providers Care Precipitation Equipment Tender Name Role Phone Valencia Adhikari APRN Primary Care Provider +1 [phone] Reason for Visit * Reason Comments Back Pain Encounter Details Date Type Department Care Team (Late st Contact Info) Description 04/25/2015 10:57 PM EST - 04/26/2015 1:39 AM EST Emergency [place] [address] Eduardo Braun MD [facility] [place] [address] Cervical strain, initial encounter; Closed head injury, [...] 01/24/2024 1:00 PM [place] [address] Walt Bay MD [facility] OBSTETRICS [place] [address] 01/24/2024 2:00 PM EDT Routine Obstetrics [place] [address] Taty Ramos MD [facility] MATERNAL & [place] [address] 02/07/2024 9:00 AM [place] [address] Walt Bay MD [facility] OBSTETRICS [place] [address] 02/07/2024 10:15 AM EDT Routine Obstetrics and Gynecology at [address]1000 Linda Diaz MD [facility] [place] [address] 03/12/2024 10:45 AM EST Office Visit Endocrinology at [address]1000 James Barth DO [facility] [place] [address] 05/23/2024 Hospital Encounter Birthing [place] [phone] Maite Malloy MD [facility] OBSTETRICS [place] [address] documented as of this encounter Procedures Procedure [...] Lakhani) documented in this encounter Care Teams Precipitation Equipment Tender Relationship Specialty Start Date End Date Valencia Adhikari APRN [address] [place] [address] PCP - General 04/21/14 07/04/23 documented as of this encounter
--- OUTSIDE RECORDS SUMMARY | 2024-01-23 17:57 | XMS_ITS | Encounter Summary ---
Author Organization [facility] [place] [address] Care Team Providers Care Oyster Shipper Name Role Phone OnofreValencia pitts [place] Primary Care Provider +1 [phone] Encounter Details Date Type Department Care Team (Late st Contact Info) Description 12/01/2016 External Results [place] [phone] Isaac Osorio MD [facility] [place] [address] Social History Tobacco Use Types Packs/Day Years [...] 01/24/2024 1:00 PM EDT Appointment [place] [address] Walt Bay MD [facility] OBSTETRICS [place] [address] 01/24/2024 2:00 PM EDT Routine Obstetrics and Gynecology at [address]1000 Taty Ramos MD [facility] DR MATERNAL & [place] [address] 02/07/2024 9:00 AM EDT Appointment Radiology at [place] [address] Walt Bay MD [facility] DR OBSTETRICS [place] [address] 02/07/2024 10:15 AM EDT Routine Obstetrics [place] [address] Linda Diaz MD [facility] MATERNAL [place] [address] 03/12/2024 10:45 AM EST Office Visit Endocrinology at [place] [address] James Barth DO [facility] DR [place] [address] 05/23/2024 Hospital Encounter Birthing [place] [phone] Maite Malloy MD [facility] OBSTETRICS [place] [address] documented as of this encounter Procedures Procedure Name Priority Date/Time Associated Diagnosis Comments EMG SCAN Routine 12/01/2016 documented in this encounter Results * Scan Doc: EMG (12/01/2016) Isaac Osorio MD MEDIA MGR SCAN EXT O RDR/RSLT documented in this encounter Visit Diagnoses Not on filedocumented in this encounter Care Teams Oyster Shipper Relationship Specialty Start Date End Date Valencia Adhikari APRN [address] [place] [address] PCP - General 04/21/14 07/04/23 documented as of this encounter
--- OUTSIDE RECORDS SUMMARY | 2024-01-23 17:57 | XMS_ITS | Encounter Summary ---
Author Organization [facility] Address [facility] [place] [address] Care Team Providers Care Acoustical Tile Patternmaker Name Role Phone Valencia Adhikari APRN Primary Care Provider +1 [phone] Encounter Details Date Type Department Care Team (Latest Contact Info) Description 02/06/2016 - 02/06/2016 12:04 AM EDT Hospital Encounter Radiology Library at [facility] [place] [phone] Kedar Santos MD [facility] [place] [address] Discharge Disposition: Home Social History Tobacco Use [...] 01/24/2024 1:00 PM EDT Appointment Radiology at [place] [address] Walt Bay MD [facility] DR OBSTETRICS [place] [address] 01/24/2024 2:00 PM EDT Routine Obstetrics and Gynecology at [address]1000 Taty Ramos MD [facility] MATERNAL & [place] [address] 02/07/2024 9:00 AM EDT Appointment Radiology at [place] [address] Walt Bay MD [facility] OBSTETRICS [place] [address] 02/07/2024 10:15 AM EDT Routine Obstetrics and Gynecology at [address]1000 Linda Diaz MD [facility] [place] [address] 03/12/2024 10:45 AM EST Office Visit Endocrinology at [address]1000 James Barth DO [facility] [place] [address] 05/23/2024 Hospital Encounter Birthing [facility] [place] [address] Maite Malloy MD [facility] DR OBSTETRICS [place] [address] documented as of this encounter Procedures Procedure Name Priority Date/Time Associated Diagnosis Comments FILM LIBRARY STORAGE ONLY DX ELBOW Routine 02/06/2016 12:00 AM EDT documented in this encounter Results * Film Library- Storage Only DX Elbow (02/06/2016 12:00 AM EDT) Narrative [facility] - 05/17/2017 11:21 AM EST This exam is for storage only and is auto-finalizing. Kedar Santos MD IMG FILM LIBRARY ORD ERABLES [place], [place] documented in this encounter Visit Diagnoses Not on filedocumented in this encounter Care Teams Acoustical Tile Patternmaker Relationship Specialty Start Date End Date Valencia Adhikari APRN [address] [place] [address] PCP - General 04/21/14 07/04/23 documented as of this encounter
--- OUTSIDE RECORDS SUMMARY | 2024-01-23 17:57 | XMS_ITS | Encounter Summary ---
Author Organization [facility] Address [facility] [place] [address] Care Team Providers Care Records And Tape Recordings Engineer Name Role Phone Valencia Gomez APRN Primary Care Provider +1 [phone] Reason for Visit * Reason Comments Headache Dizziness * Consultation (Routine) - Closed Specialty Diagnoses / Procedures Referred By Contac t Referred To Contact Neurology Diagnoses headaches Valencia Gomez APRN [address] [place] [address] [facility] Neurology [address] [place] [phone] Referral ID Status Reason Start Date Expiration Date V isits Requested Visits Authorized [id number] Closed Consult, Test & Treat [facility] 12/13/2015 12/12/2016 1 1 Encounter Details Date Type Department Care Team (Late st Contact Info) Description 12/21/2015 8:30 AM EDT [place] [address] Neo Pleitez MD [facility] [place] [address] Evelyn Pelayo MD [address] [place] [address] Migraine with vertigo; Intractable chronic migraine without [...] diary to the next appointment. Please check [place] [employer] web site and read about [...] side effects, please call my office at [phone], Sunday through Sunday, 8 AM to 5 PM (calling early in the day is best), and we can talk about possible medication adjustments over the phone. documented in this encounter Progress Notes * Evelyn Pelayo MD - 12/21/2015 8:30 AM EDT Neurology Headache Clinic Consultation Note Patient name: Andree Hummel Date of : 1990 Age: 25 y.o. PCP: VALENCIA GOMEZ APRN I have been asked to see Andree UnderwoodWilliams in consultation by Valencia Gomez for complain of Headaches in my [...] h, last MINAYA started 20 min ago RN CORRECTIONAL, varies in degree of intensity MINAYA free [...] NECK DISSECTION performed by JUAN ESPARZA at [facility] MA[facility] OR ??? Prg somatosensory test, any/all per. nerves, trunk or head 03/22/2011 FACIAL NERVE MONITORING, SETUP performed by JUAN ESPARZA at [facility] OR ??? [place] tooth extraction ??? Upper gastrointestinal endoscopy for IBS, celiac excluded ??? Colonoscopy found polyps ??? Tonsillectomy 2010 Social History: Social History Social History ??? Marital status: Single Spouse name: N/A ??? Number of children: 0 ??? Years of education: 17 Occupational History ??? [employer] Social History Main Topics ??? Smoking status: [...] since it works well. Patient was given [place] [employer] handouts about her headache condition [...] to face-to face patient counseling. Thank you, Valencia Gomez for this consult. Evelyn Pelayo MD [...] PM EDT Appointment Radiology at [place] [address] Walt Bay MD [facility] DR OBSTETRICS [place] [address] 01/24/2024 2:00 PM EDT Routine Obstetrics and Gynecology at [address]1000 Taty Ramos MD [facility] DR MATERNAL & [place] [address] 02/07/2024 9:00 AM EDT Appointment Radiology at [place] [address] Walt Bay MD [facility] DR OBSTETRICS [place] [address] 02/07/2024 10:15 AM EDT Routine Obstetrics and Gynecology at [address]1000 Linda Diaz MD [facility] [place] [address] 03/12/2024 10:45 AM EST Office [place] [address] James Barth DO [facility] [place] [address] 05/23/2024 Hospital Encounter [place] [address] Maite Malloy MD [facility] DR OBSTETRICS [place] [address] documented as of this encounter Procedures Procedure Name Priority Date/Time Associated Diagnosis Comments URINE, QUALITATIVE Routine 12/21/2015 11:36 AM EDT Migraine with vertigo Intractable chronic migraine without aura and without status migrainosus documented in this encounter Results * urine, qualitative (12/21/2015 11:36 AM EDT) Specific Mcintosh Urine Non-automated 1.017 1.002 - 1.030 [facility] Human Chorionic Gonadotropin Qualitative, Urine Negative [facility] Comment: If Specific Mcintosh is less than 1.010, a negative result is obtained, and is still suspected, a repeat on a first morning specimen is recommended. Urine specimen (specimen) 12/21/2015 11:36 AM EDT 12/21/2015 12:08 PM EDT Narrative Resulting Agency Comment Spec In Lab Evelyn Pelayo MD URINE ORDERABLES [facility] [place] [address] documented in this encounter Visit Diagnoses Diagnosis Migraine with vertigo Migraine with aura, without mention of intractable migraine without mention of status migrainosus Intractable chronic migraine without aura and without status migrainosus Chronic migraine without aura, with intractable migraine, so stated, without mention of status migrainosus documented in this encounter Care Teams Records And Tape Recordings Engineer Relationship Specialty Start Date End Date Valencia Gomez APRN [address] [place] [address] PCP - General 04/21/14 07/04/23 documented as of this encounter
--- OUTSIDE RECORDS SUMMARY | 2024-01-23 17:57 | XMS_ITS | Encounter Summary ---
Author Organization [facility] Address [facility] [place] [address] Care Team Providers Care Ultimate Hoops Trainer Name Role Phone Valencia Adhikari APRN Primary Care Provider +1 -[phone] Encounter Details Date Type Department Care Team (Latest Contact Info) Description 05/15/2017 10:47 AM EST - 05/15/2017 11:59 PM [facility] Hospital Encounter XRay at [address] [place] [address] Kedar Santos MD [facility] [place] [address] Left shoulder pain, unspecified chronicity Discharge Disposition: [...] 01/24/2024 1:00 PM [place] [address] Walt Bay MD [facility] [place]ET[place] [address] 01/24/2024 2:00 PM EDT Routine Obstetrics [place] [address] Taty Ramos MD [facility] MATERNAL [place] [address] 02/07/2024 9:00 AM [place] [address] Walt Bay MD [facility] OBSTET[place] [address] 02/07/2024 10:15 AM EDT Routine Obstetrics [place] [address] Linda Diaz MD [facility] [place] [address] 03/12/2024 10:45 AM EST Office [place] [address] James Barth DO [facility] [place] [address] 05/23/2024 Hospital [place] [address] Maite Malloy MD [facility] DR OBSTETRICS [place] [address] documented as of this encounter Procedures Procedure [...] LEFT (GENERIC) CLINICAL HISTORY: Left Shoulder Pain DoI: 09/06/16 TECHNIQUE: Axillary, Y view and [...] LEFT (GENERIC) CLINICAL HISTORY: Left Shoulder Pain DoI: 09/06/16 TECHNIQUE: Axillary, Y view and [...] chronicity documented in this encounter Care Teams Ultimate Hoops Trainer Relationship Specialty Start Date End Date Valencia Adhikari, [place] [address] [place] [address] PCP - General 04/21/14 07/04/23 documented as of this encounter
--- OUTSIDE RECORDS SUMMARY | 2024-01-23 17:57 | XMS_ITS | Encounter Summary ---
Author Organization [facility] Address [facility] [place] [address] Care Team Providers Care Vinyl Top Installer Name Role Phone Valencia Adhikari APRN Primary Care Provider +1 [phone] Reason for Visit * Consultation (Routine) - Closed Specialty Diagnoses / Procedures Referred By Lamont riggins Referred To Contact Neurology Diagnoses BILATERAL HAND PARESTHESIA Procedures Evaluate and Treat StressJoceline cardzoa APRN [address] [place] [address] [facility] [address] [place] [phone] Referral ID Status Reason Start Date Expiration Date V isits Requested Visits Authorized [id number] Closed Consult, Test & Treat Connection [facility] 11/20/2016 11/20/2017 1 1 Encounter Details Date Type Department Care Team (Latest Contact Info) Description 12/01/2016 10:00 AM EDT Procedure [place] [address] Isaac Osorio MD [facility] [place] [address] Paresthesias in left hand; Paresthesias in right [...] is a single mother and lives in [place], [place]. She denies any neck pain. She [...] 01/24/2024 1:00 PM EDT Appointment Radiology at [place] [phone] Simin Bay MD [facility] DR OBSTET[place]ICS [place] [address] 01/24/2024 2:00 PM EDT Routine Obstetrics and Gynecology at [place] [phone] Taty Ramos MD [facility] MATERNAL & [place] [address] 02/07/2024 9:00 AM EDT [place] [address] Simin Bay MD [facility] DR [place] [address] 02/07/2024 10:15 AM EDT Routine Obstetrics [place] [address] Linda Diaz MD [facility] [place] [address] 03/12/2024 10:45 AM EST Office [place] [address] James Barth DO [facility] [place] [address] 05/23/2024 Hospital [place] [address] Maite Malloy MD [facility] [place] [address] documented as of this encounter Visit Diagnoses Diagnosis Paresthesias in left hand Disturbance of skin sensation Paresthesias in right hand Disturbance of skin sensation documented in this encounter Care Teams Vinyl Top Installer Relationship Specialty Start Date End Date Valencia Adhikari APRN [address] [place] [address] PCP - General 04/21/14 07/04/23 documented as of this encounter
--- OUTSIDE RECORDS SUMMARY | 2024-01-23 17:57 | XMS_ITS | Encounter Summary ---
Author Organization [facility] [place] [address] Care Team Providers Care Hospitality Aide Name Role Phone None Primary Care Provider Unavailabl e Encounter Details Date Type Department Care Team (Late st Contact Info) Description 12/20/2012 External Results [place] [phone] Griffin Wallis III, MD [facility] DR ENDOCRINOLOGY DEPT. [place], [place] [id number] Hypothyroidism Social History Tobacco Use Types Packs/Day [...] 01/24/2024 1:00 PM EDT Appointment [place] [address] Walt Bay MD [facility] OBSTETRICS [place] [address] 01/24/2024 2:00 PM EDT Routine Obstetrics and Gynecology at [place] [phone] Taty Ramos MD [facility] DR MATERNAL & [place] [address] 02/07/2024 9:00 AM EDT Appointment Radiology at [place] [address] Walt Bay MD [facility] DR OBSTETRICS [place] [address] 02/07/2024 10:15 AM EDT Routine Obstetrics [place] [address] Linda Diaz MD [facility] [place] [address] 03/12/2024 10:45 AM EST Office Visit Endocrinology at [place] [address] James Barth DO [facility] [place] [address] 05/23/2024 Hospital Encounter Birthing [place] [phone] Maite Malloy MD [facility] DR OBSTETRICS [place] [address] documented as of this encounter Procedures Procedure Name Priority Date/Time Associated Diagnosis Comments TSH Routine 12/12/2012 Hypothyroidism documented in this encounter Results * (ABNORMAL) TSH (12/12/2012) Thyroid Stimulating Hormone 0.15(EXTER NAL/ABN) Blood specimen (specimen) Griffin Wallis III, MD [facility]MI[facility]ANDA documented in this encounter Visit Diagnoses Diagnosis Hypothyroidism Unspecified hypothyroidism documented in this encounter Care Teams Hospitality Aide Relationship Specialty Start Date End Date None None PCP - General 05/08/12 04/20/14 documented as of this encounter
--- OUTSIDE RECORDS SUMMARY | 2024-01-23 17:57 | XMS_ITS | Encounter Summary ---
Author Organization [facility] [place] [address] Care Team Providers Care Galley Cook Name Role Phone None Primary Care Provider Unavailabl e Reason for Visit * Reason Onset Date Comments Triage 04/17/2014 Encounter Details Date Type Department Care Team (Late st Contact Info) Description 04/17/2014 Telephone Orthopaedics at [facility] [place] [address] Omayra Fulton, director of restaurant Social History Tobacco Use Types Packs/Day Years [...] Received 6 pages of office notes from [facility], for the patients upcoming appointment. List what was rec'd. ED NOTES XR RESULTS * Telephone Encounter - Omayra Schroeder RN - 04/17/2014 1:58 PM EST Appropriate for AP or Gen Ortho. * Telephone Encounter - Taty Browne - 04/17/2014 10:36 AM EST Ask the patient to verify the following: Full Name: Andree UnderwoodWilliams : 1990 Phone number: [phone] (home) Mailing address: [address] [place] [phone] Age: 23 y.o. Mom states patient was trying to move out of the way of a car and slipped and possibly hit her kneeoff a guardrail. She was seen in [facility] ED and was told she probably has a meniscus tear and needs tofollow up with Ortho. Mom states she works here. Please call her as her daughter is not available. Her name is Carmina and her number is [phone]. Appointment date: TBD Appointment is with: TBD [...] X-rays: Yes - When? Where? Notes: 04/15/14 [place], [place] PH: [phone] FAX: [phone] IMG PUSH SEEN IN THEIR ED THIS [...] of 56. MyD [facility] - Patient Declined - MOM BOOKED documented in this encounter Plan of Treatment Upcoming Encounters Date Type Department Care Team (Late st Contact Info) Description 01/24/2024 1:00 PM EDT Appointment Radiology at [place] [address] Walt Bay MD [facility] DR OBSTET[place]ICS [place] [address] 01/24/2024 2:00 PM EDT Routine Obstetrics and Gynecology at [place] [address] Taty Ramos MD [facility] MATERNAL & [place] [address] 02/07/2024 9:00 AM EDT Appointment Radiology at [address] Walt Bay MD [facility] [place]ST[place] [address] 02/07/2024 10:15 AM EDT Routine Obstetrics and Gynecology at [address] Linda Diaz MD [facility] [place] [address] 03/12/2024 10:45 AM EST Office [place] [address] James Barth DO [facility] [place] [address] 05/23/2024 [place] [address] Maite Malloy MD [facility] OBSTETRICS [place] [address] documented as of this encounter Visit Diagnoses Not on filedocumented in this encounter Care Teams Galley Cook Relationship Specialty Start Date End Date None None PCP - General 05/08/12 04/20/14 documented as of this encounter
--- OUTSIDE RECORDS SUMMARY | 2024-01-23 17:57 | XMS_ITS | Encounter Summary ---
Author Organization [facility] Address [facility] [place] [address] Care Team Providers Care Internet E Commerce Specialist Name Role Phone Valencia Adhikari APRN Primary Care Provider +1 [phone] Reason for Visit * Reason Comments Left Shoulder Pain workers comp DOI Encounter Details Date Type Department Care Team (Late st Contact Info) Description 04/03/2017 9:30 AM EST Office [place] [address] Kedar Santos MD [facility] [place] [address] Chronic left shoulder pain Social History Tobacco [...] 01/24/2024 1:00 PM EDT Appointment Radiology at [place] [address] Walt Bay MD [facility] DR OBSTETRICS [place] [address] 01/24/2024 2:00 PM EDT Routine Obstetrics and Gynecology at [address] Taty Ramos MD [facility] MATERNAL & [place] [address] 02/07/2024 9:00 AM EDT Appointment Radiology at [address]1000 Walt Bay MD [facility] DR OBSTETRICS [place] [address] 02/07/2024 10:15 AM EDT Routine Obstetrics and Gynecology at [place] [address] Linda Diaz MD [facility] [place]ERNAL [place] [address] 03/12/2024 10:45 AM EST Office [place] [address] James Barth DO [facility] [place] [address] 05/23/2024 Hospital Encounter [place] [address] Maite Malloy MD [facility] DR OBSTETRICS [place] [address] documented as of this encounter Visit Diagnoses Diagnosis Chronic left shoulder pain Pain in joint, shoulder region documented in this encounter Care Teams Internet E Commerce Specialist Relationship Specialty Start Date End Date Valencia Adhikari APRN [address] [place] [address] PCP - General 04/21/14 07/04/23 documented as of this encounter
--- OUTSIDE RECORDS SUMMARY | 2024-01-23 17:57 | XMS_ITS | Encounter Summary ---
Author Organization [facility] [place] [address] Care Team Providers Care Local Hazmat Driver Name Role Phone None Primary Care Provider Unavailabl e Encounter Details Date Type Department Care Team (Late st Contact Info) Description 12/12/2012 [place] [phone] Omayra Meredith LPN Social History Tobacco Use [...] Taking 250 mcg daily. Called lab at [facility] for results. Received and forward to Dr avila. * Telephone Encounter - Omayra Meredith LPN - 12/12/2012 11:35 AM EDT Patient asking for order to go to [facility] to check thyroid has not been checked since of baby and was not able to go at beginning of November as baby was sick. Order faxed to [facility] documented in this encounter Plan of Treatment Upcoming Encounters Date Type Department Care Team (Late st Contact Info) Description 01/24/2024 1:00 PM [place] [address] Walt Bay MD [facility] OBSTETRICS [place] [address] 01/24/2024 2:00 PM EDT Routine Obstetrics [place] [address] Taty Ramos MD [facility] MATERNAL & [place] [address] 02/07/2024 9:00 AM [place] [address] Walt Bay MD [facility] OBSTETRICS [place] [address] 02/07/2024 10:15 AM EDT Routine Obstetrics and Gynecology at [place] [phone] Linda Diaz MD [facility] [place]ERNAL [place] [address] 03/12/2024 10:45 AM EST Office [place] [address] James Barth DO [facility] [place] [address] 05/23/2024 Hospital [place] [address] Maite Malloy MD [facility] OBSTETRICS [place] [address] documented as of this encounter Visit Diagnoses Not on filedocumented in this encounter Care Teams Local Hazmat Driver Relationship Specialty Start Date End Date None None PCP - General 05/08/12 04/20/14 documented as of this encounter
--- OUTSIDE RECORDS SUMMARY | 2024-01-23 17:57 | XMS_ITS | Encounter Summary ---
Author Organization [facility] Address [facility] [place] [address] Care Team Providers Care Desktop Support Consultant Name Role Phone Valencia Adhikari APRN Primary Care Provider +1 -[phone] Encounter Details Date Type Department Care Team (Latest Contact Info) Description 10/23/2016 - 10/23/2016 11:59 PM EDT Hospital Encounter Radiology Library [place] [phone] Kedar Santos MD [facility] [place] [address] Discharge Disposition: Home Social History Tobacco Use [...] 01/24/2024 1:00 PM EDT Appointment [place] [address] Walt Bay MD [facility] OBSTETRICS [place] [address] 01/24/2024 2:00 PM EDT Routine Obstetrics and Gynecology at [address]1000 Taty Ramos MD [facility] MATERNAL & [place] [address] 02/07/2024 9:00 AM EDT Appointment Radiology at [address]1000 Walt Bay MD [facility] OBSTETRICS [place] [address] 02/07/2024 10:15 AM EDT Routine Obstetrics and Gynecology at [place] [phone] Linda Diaz MD [facility] [place] [address] 03/12/2024 10:45 AM EST Office Visit Endocrinology at [address]1000 James Barth DO [facility] [place] [address] 05/23/2024 Hospital [place] [address] Maite Malloy MD [facility] DR OBSTETRICS [place] [address] documented as of this encounter Procedures Procedure Name Priority Date/Time Associated Diagnosis Comments FILM LIBRARY STORAGE ONLY MR SHOULDER Routine 10/23/2016 12:00 AM EDT documented in this encounter Results * Film Library- Storage Only MR Shoulder (10/23/2016 12:00 AM EDT) Narrative [facility] - 05/17/2017 11:16 AM EST This exam is for storage only and is auto-finalizing. Kedar Santos MD G FILM LIBRARY ORD ERABLES [place], [place] documented in this encounter Visit Diagnoses Not on filedocumented in this encounter Care Teams Desktop Support Consultant Relationship Specialty Start Date End Date Valencia Adhikari APRN [address] [place] [address] PCP - General 04/21/14 07/04/23 documented as of this encounter
--- OUTSIDE RECORDS SUMMARY | 2024-01-23 17:57 | XMS_ITS | Encounter Summary ---
Author Organization [facility] Address [facility] [place] [address] Care Team Providers Care Mortgage Loan Closer Name Role Phone Valencia Adhikari APRN Primary Care Provider +1 [phone] Encounter Details Date Type Department Care Team (Latest Contact Info) Description 02/06/2016 12:10 AM EDT - 02/06/2016 11:59 PM EDT Hospital Encounter Radiology Library at [facility] [place] [phone] Kedar Santos MD [facility] ORTHOPAEDIC [place] [address] Discharge Disposition: Home Social History Tobacco Use [...] 01/24/2024 1:00 PM EDT Appointment Radiology at [address]1000 Walt Bay MD [facility] DR OBSTETRICS [place] [address] 01/24/2024 2:00 PM EDT Routine Obstetrics and Gynecology at [address]1000 Taty Ramos MD [facility] DR MATERNAL & [place] [address] 02/07/2024 9:00 AM EDT Appointment Radiology at [address]1000 Walt Bay MD [facility] OBSTETRICS [place] [address] 02/07/2024 10:15 AM EDT Routine Obstetrics and Gynecology at [place] [phone] Linda Diaz MD [facility] [place] [address] 03/12/2024 10:45 AM EST Office [place] [address] James Barth DO [facility] [place] [address] 05/23/2024 Hospital Encounter Birthing [place] [facility] [place] [address] Maite Malloy MD [facility] DR OBSTETRICS [place] [address] documented as of this encounter Procedures Procedure Name Priority Date/Time Associated Diagnosis Comments FILM LIBRARY STORAGE ONLY CT ELBOW Routine 02/06/2016 12:10 AM EDT documented in this encounter Results * Film Library- Storage Only CT Elbow (02/06/2016 12:10 AM EDT) Narrative [facility] - 05/17/2017 11:25 AM EST This exam is for storage only and is auto-finalizing. Kedar Santos MD G FILM LIBRARY ORD ERABLES [place], [place] documented in this encounter Visit Diagnoses Not on filedocumented in this encounter Care Teams Mortgage Loan Closer Relationship Specialty Start Date End Date Valencia Adhikari APRN [address] [place] [address] PCP - General 04/21/14 07/04/23 documented as of this encounter
--- OUTSIDE RECORDS SUMMARY | 2024-01-23 17:57 | XMS_ITS | Encounter Summary ---
Author Organization [facility] Address [facility] [place] [address] Care Team Providers Care Greaser Operator Name Role Phone Valencia Adhikari APRN Primary Care Provider [phone] Encounter Details Date Type Department Care Team (Latest Contact Info) Description 05/08/2016 1:58 PM EST - 05/08/2016 11:59 PM EST Hospital En[place] [phone] Richard Faust MD [facility] OBSTETRICS & [place] [address] Acute pelvic pain, female Discharge Disposition: Home [...] PM EDT Appointment Radiology at [place] [phone] Walt Bay MD [facility] OBSTETRICS [place] [address] 01/24/2024 2:00 PM EDT Routine Obstetrics and Gynecology at [address]1000 Taty Ramos MD [facility] DR MATERNAL & [place] [address] 02/07/2024 9:00 AM EDT [place] [address] Walt Bay MD [facility] OBSTETRICS [place] [address] 02/07/2024 10:15 AM EDT Routine Obstetrics and Gynecology at [place] [phone] Linda Diaz MD [facility] DR [place]ERNAL [place] [address] 03/12/2024 10:45 AM EST Office Visit Endocrinology at [address]1000 James Barth DO [facility] [place] [address] 05/23/2024 Hospital Encounter Birthing [place] [facility] [place] [address] Maite Malloy MD [facility] DR OBSTETRICS [place] [address] documented as of this encounter Procedures Procedure [...] 02:35 pm) PATIENT INFO: ID #: ? [id number] ?: ??[birth year] (25 yrs) Name: ? PREETHI Godoy ? Visit Date: 05/08/2016 02:20 pm ? LOUISE- ? FRANK PERFORMED BY: Performed By: ? Itzel Lezama RDMS Attending: ?Anca LIMA, Phylicia Reyes Referred By: ?RICHARD FAUST MD Location: ? [place] SERVICE(S) PROVIDED: ??UTV - Transvaginal - [id number] ?[id number] ??U3D - ??3D rendering with interpretation - [id number] ? [id number] INDICATIONS: ??pelvic pain with IUD in place [...] 05/08/2016 02:35 pm) PATIENT INFO: ID #: [id number] : [birth year] (25 yrs) Name: PREETHI Godoy Visit Date: 05/08/2016 02:20 pm MARIO MARIE PERFORMED BY: Performed By: Itzel Lezama RDMS Attending: Phylicia March MD Referred By: RICHARD FAUST MD Location: [place] SERVICE(S) PROVIDED: UTV - Transvaginal - [id number] U3D - 3D rendering with interpretation - [id number] INDICATIONS: pelvic pain with IUD in place [...] 05/08/2016 02:35 pm Richard Faust MD IMG PELVIC ORDERA BLES documented in this encounter Visit Diagnoses Diagnosis Acute pelvic pain, female Unspecified symptom associated with female genital organs documented in this encounter Care Teams Greaser Operator Relationship Specialty Start Date End Date Valencia Adhikari, COMBAT SYSTEMS OPERATOR [employer] [address] [place] [address] PCP - General 04/21/14 07/04/23 documented as of this encounter
--- OUTSIDE RECORDS SUMMARY | 2024-01-23 17:57 | XMS_ITS | Encounter Summary ---
Author Organization [facility] [place] [address] Care Team Providers Care Dairy Equipment Mechanic Name Role Phone Valencia Adhikari APRN Primary Care Provider +1 [phone] Encounter Details Date Type Department Care Team (Late st Contact Info) Description 04/01/2015 9:00 AM EST Office Visit Obstetrics [place] [phone] Pam Chaidez APRN [facility] [place] [address] Nipple discharge in female (Primary Dx); Possible [...] encounter Progress Notes * Анна, Pam M, TINTER PHOTOGRAPH - 04/01/2015 8:45 AM EST REASON FOR [...] was removed without difficulty and as per paper maker instructions. Pt tolerated the procedure well. The [...] 01/24/2024 1:00 PM EDT [place] [phone] Walt Bay MD [facility] DR OBSTETRICS [place] [address] 01/24/2024 2:00 PM EDT Routine Obstetrics and Gynecology at [place] [address] Taty Ramos MD [facility] DR MATERNAL & [place] [address] 02/07/2024 9:00 AM EDT Appointment Radiology at [place] [address] Walt Bay MD [facility] DR OBSTETRICS [place] [address] 02/07/2024 10:15 AM EDT Routine Obstetrics and Gynecology at [address] Linda Diaz MD [facility] DR MATERNAL [place] [address] 03/12/2024 10:45 AM EST Office Visit Endocrinology at [place] [address] James Barth DO [facility] [place] [address] 05/23/2024 Hospital Encounter Birthing [place] [phone] Maite Malloy MD [facility] DR OBSTET[place]ICS [place] [address] documented as of this encounter Procedures Procedure [...] AM EST) GC Gene Amp Negative Negative [facility] Comment: The only FDA approved specimen types for this assay are cervix, vagina, urethra and urine. ??The sensitivity and specificity of the assay for other specimen types has not been determined. GC Source Urine [facility] Chlamydia Gene Amp Negative Negative [facility] Comment: The only FDA approved specimen types for this assay are cervix, vagina, urethra and urine. ??The sensitivity and specificity of the assay for other specimen types has not been determined. Chlm Source Urine [facility] Urine specimen (specimen) 04/01/2015 10:09 AM EST 04/01/2015 10:19 AM EST Narrative Resulting Agency Comment Spec In Lab Richard Faust MD MICROBIOLOGY - GENER AL ORDERABLES [facility] * Beta HCG, quantitative (04/01/2015 10:02 AM EST) Pathologist [facility] Beta Human Chorionic Gonadotropin, Quantitative <1 mlU/ML [facility] Comment: REFERENCE RANGES NON- FEMALE: ??Less than [...] ? 8,175 - 55,868 ?18 weeks ? 5,164 - 66,351 Blood specimen (specimen) 04/01/2015 10:02 AM EST 04/01/2015 10:15 AM EST Narrative Resulting Agency Comment Spec In Lab Richard Faust MD CHEMISTRY ORDERABLES Performing Organization Address [facility] de Phone Number [facility] * Prolactin (04/01/2015 10:02 AM EST) Prolactin 21.1 4.8 - 23.3 ng/mL [facility] Blood specimen (specimen) 04/01/2015 10:02 AM EST 04/01/2015 10:15 AM EST Narrative Resulting Agency Comment Spec In Lab Richard Faust MD CHEMISTRY ORDERABLES Performing Organization Address [facility] de Phone Number [facility] * POCT urine (04/01/2015) POC Urine HCG [...] disease documented in this encounter Care Teams Dairy Equipment Mechanic Relationship Specialty Start Date End Date Valencia Adhikari APRN [address] [place] [address] PCP - General 04/21/14 07/04/23 documented as of this encounter
--- OUTSIDE RECORDS SUMMARY | 2024-01-23 17:57 | XMS_ITS | Encounter Summary ---
Author Organization [facility] [place] [address] Care Team Providers Care Program Director/Music Director Name Role Phone Valencia Adhikari APRN Primary Care Provider [phone] [phone] Reason for Visit * Reason Onset Date Comments Other 02/15/2017 Encounter Details Date Type Department Care Team (Late st Contact Info) Description 02/15/2017 [place] [phone] Isaac Osorio MD [facility] [place] [address] Other Social History Tobacco Use Types Packs/Day [...] If not Pt / Relation to pt: [facility] Best time to reach caller: Anytime at Dr Osorio's convenience Before 2:30pm - Informed caller that nurse will call back by the end of the day Best number to reach caller: [phone] Reason for call: Joceline from [facility] called. She would like to speak with Dr Osorioregarding the MRI patient had done [facility] on 02/09/2017 documented in this encounter Plan of Treatment Upcoming Encounters Date Type Department Care Team (Late st Contact Info) Description 01/24/2024 1:00 PM EDT [place] [address] Simin Bay MD [facility] OBSTETRICS [place] [address] 01/24/2024 2:00 PM EDT Routine Obstetrics [place] [address] Taty Ramos MD [facility] MATERNAL & [place] [address] 02/07/2024 9:00 AM EDT [place] [address] Simin Bay MD [facility] OBSTETRICS [place] [address] 02/07/2024 10:15 AM EDT Routine Obstetrics and Gynecology at [place] [address] Linda Diaz MD [facility] [place] [address] 03/12/2024 10:45 AM EST Office Visit Endocrinology at [place] [address] James Barth DO [facility] [place] [address] 05/23/2024 Hospital [place] [address] Maite Malloy MD [facility] OBSTETRICS [place] [address] documented as of this encounter Visit Diagnoses Not on filedocumented in this encounter Care Teams Program Director/Music Director Relationship Specialty Start Date End Date Valencia Adhikari APRN [address] [place] [address] PCP - General 04/21/14 07/04/23 documented as of this encounter
--- OUTSIDE RECORDS SUMMARY | 2024-01-23 17:57 | XMS_ITS | Encounter Summary ---
Author Organization [facility] [place] [address] Care Team Providers Care Project Development Manager Name Role Phone None Primary Care Provider Unavailabl e Encounter Details Date Type Department Care Team (Late st Contact Info) Description 04/15/2014 Orders Only [place] [phone] Joshua Padron MD [facility] [place] [address] Social History Tobacco Use Types Packs/Day Years [...] 01/24/2024 1:00 PM EDT Appointment [place] [address] Walt Bay MD [facility] DR OBSTET[place] [address] 01/24/2024 2:00 PM EDT Routine Obstetrics and Gynecology at [place] [phone] Taty Ramos MD [facility] DR MATERNAL & [place] [address] 02/07/2024 9:00 AM EDT Appointment Radiology at [place] [address] Walt Bay MD [facility] DR OBSTETRICS [place] [address] 02/07/2024 10:15 AM EDT Routine Obstetrics [place] [address] Linda Diaz MD [facility] MATERNAL [place] [address] 03/12/2024 10:45 AM EST Office Visit Endocrinology at [place] [address] James Barth DO [facility] [place] [address] 05/23/2024 [place] [address] Maite Malloy MD [facility] DR OBSTETRICS [place] [address] documented as of this encounter Procedures Procedure [...] is a Non-reportable exam Joshua Padron MD [facility] FILM LIBRARY ORD ERABLES documented in this encounter Visit Diagnoses Not on filedocumented in this encounter Care Teams Project Development Manager Relationship Specialty Start Date End Date None None PCP - General 05/08/12 04/20/14 documented as of this encounter
--- OUTSIDE RECORDS SUMMARY | 2024-01-23 17:57 | XMS_ITS | Encounter Summary ---
Author Organization [facility] Address [facility] [place] [address] Care Team Providers Care Criminal Justice Department Chair Name Role Phone Valencia Adhiakri APRN Primary Care Provider [phone] [phone] Encounter Details Date Type Department Care Team (Latest Contact Info) Description 09/06/2016 - 09/06/2016 11:59 PM EDT Hospital Encounter Radiology Library [place] [phone] Kedar Santos MD [facility] [place] [address] Discharge Disposition: Home Social History Tobacco Use [...] 01/24/2024 1:00 PM EDT Appointment [place] [address] Walt Bay MD [facility] OBSTETRICS [place] [address] 01/24/2024 2:00 PM EDT Routine Obstetrics and Gynecology at [address] Taty Ramos MD [facility] MATERNAL & [place] [address] 02/07/2024 9:00 AM EDT Appointment Radiology at [address] Walt Bay MD [facility] OBSTETRICS [place] [address] 02/07/2024 10:15 AM EDT Routine Obstetrics and Gynecology at [place] [phone] Linda Diaz MD [facility] MATERNAL [place] [address] 03/12/2024 10:45 AM EST Office Visit Endocrinology at [address] James Barth DO [facility] [place] [address] 05/23/2024 Hospital En[place] [phone] Maite Malloy MD [facility] DR OBSTETRICS [place] [address] documented as of this encounter Procedures Procedure Name Priority Date/Time Associated Diagnosis Comments FILM LIBRARY STORAGE ONLY DX ELBOW Routine 09/06/2016 12:00 AM EDT documented in this encounter Results * Film Library- Storage Only DX Elbow (09/06/2016 12:00 AM EDT) Narrative [facility] - 05/17/2017 11:18 AM EST This exam is for storage only and is auto-finalizing. Kedar Santos MD IMG FILM LIBRARY ORD ERABLES [place], [place] documented in this encounter Visit Diagnoses Not on filedocumented in this encounter Care Teams Criminal Justice Department Chair Relationship Specialty Start Date End Date Valencia Adhikari APRN [address] [place] [address] PCP - General 04/21/14 07/04/23 documented as of this encounter
--- OUTSIDE RECORDS SUMMARY | 2024-01-23 17:57 | XMS_ITS | Encounter Summary ---
Author Organization [facility] [place] [address] Care Team Providers Care Reinspector Name Role Phone Valencia Adhikari APRN Primary Care Provider [phone] [phone] Reason for Visit * Reason Comments Follow-up IUD consult, inserti on Encounter Details Date Type Department Care Team (Late st Contact Info) Description 03/14/2016 10:00 AM EST Office Visit Obstetrics [place] [address] Pam Chaidez APRN [facility] OBSTETRICS [place] [address] Encounter for IUD insertion (Primary Dx); IUD [...] this encounter Progress Notes * Pam Chaidez, [place] - 03/14/2016 10:00 AM EST REASON FOR [...] NECK DISSECTION performed by JUAN ESPARZA at [facility] OR ??? Prg somatosensory test, any/all per. nerves, trunk or head 03/22/2011 FACIAL NERVE MONITORING, SETUP performed by JUAN ESPARZA at [facility] OR ??? [place] tooth extraction ??? Upper gastrointestinal endoscopy for [...] 01/24/2024 1:00 PM EDT [place] [phone] Walt Bay MD [facility] OBSTETRICS [place] [address] 01/24/2024 2:00 PM EDT Routine Obstetrics [place] [phone] Taty Ramos MD [facility] MATERNAL & [place] [address] 02/07/2024 9:00 AM EDT Appointment Radiology at [place] [phone] Walt Bay MD [facility] DR OBSTETRICS [place] [address] 02/07/2024 10:15 AM EDT Routine Obstetrics and Gynecology at [place] [phone] Linda Diaz MD [facility] DR MATERNAL [place] [address] 03/12/2024 10:45 AM EST Office Visit Endocrinology at [place] [phone] James Barth DO [facility] [place] [address] 05/23/2024 Hospital Encounter Birthing [place] [phone] Maite Malloy MD [facility] DR OBSTETRICS [place] [address] Scheduled Orders Name Type Priority Associated Diagnoses [...] Results * GC/Chlam (03/14/2016 10:38 AM EST) Pathologist [facility] GC Gene Amp Negative Negative [facility] Comment: The only FDA approved specimen types for this assay are cervix, vagina, urethra and urine. GC Source Urine [facility] Chlamydia Gene Amp Negative Negative [facility] Comment: The only FDA approved specimen types for this assay are cervix, vagina, urethra and urine. Chlm Source Urine [facility] Urine specimen (specimen) 03/14/2016 10:38 AM EST 03/14/2016 12:09 PM EST Narrative Resulting Agency Comment Spec In Lab Richard Faust MD MICROBIOLOGY - GENER AL ORDERABLES [facility] [place] [address] documented in this encounter Visit Diagnoses Diagnosis [...] Uterine Device, Intrauterine, ONCE, 1 dose, On Tu03/14/16 at 1100, Routine Inserted 03/14/2016 10:38 AM EST 1 Intra Uterine Device 20-Other (document in comment section) documented in this encounter Care Teams Reinspector Relationship Specialty Start Date End Date Valencia Adhikari APRN [address] [place] [address] PCP - General 04/21/14 07/04/23 documented as of this encounter
--- OUTSIDE RECORDS SUMMARY | 2024-01-23 17:57 | XMS_ITS | Encounter Summary ---
Author Organization [facility] Address [facility] [place] [address] Care Team Providers Care Sewer Pipe Cleaner Name Role Phone Valencia Adhikari APRN Primary Care Provider [phone] [phone] Reason for Visit * Reason Comments Left Shoulder Pain DOI 09/06/16 * Consultation (Routine) - Closed Specialty Diagnoses / Procedures Referred By Contwillow t Referred To Contact Orthopaedics Diagnoses left shoulder pain Valencia Adhikari APRN [address] [place] [address] [facility] [address] [place] [address] Referral ID Status Reason Start Date Expiration Date V isits Requested Visits Authorized [id number] Closed Consult, Test & Treat Connection [facility] 01/17/2017 01/17/2018 1 1 Encounter Details Date Type Department Care Team (Late st Contact Info) Description 02/06/2017 9:00 AM EDT Office Visit [place] [address] Kedar Santos MD [facility] [place] [address] Left shoulder pain, unspecified chronicity [...] complaint. HPI: The patient is a 26-year-old [id number] female who comes in today complaining of [...] dementia carefacility. Pain is not relieved by aouc-xcq-[id number] anti- inflammatory medications. No other prior injuries. [...] MONITORING, SETUP performed by JUAN ESPARZA at [facility] OR ??? PRO THYROIDECTOMY, [employer] LTD NECK SURG 03/22/2011 THYROIDECTOMY, FOR MALIGNANCY, LIMITED NECK DISSECTION performed by UJAN ESPARZA at [facility] OR ??? TONSILLECTOMY 2010 ??? UPPER GASTROINTESTINAL ENDOSCOPY for IBS, celiac excluded ??? WISDOM TOOTH EXTRACTION Medications were reviewed with the patient today and are up to date. Family History: Negative for bleeding problems, blood clotting disorders, or problems with anesthesia. Social History: Denies tobacco use, denies alcohol use except occasionally. 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 Imaging studies: MRI [...] Kedar Santos MD [facility] Pager: [phone] documented in this encounter Plan of Treatment Upcoming Encounters Date Type Department Care Team (Late st Contact Info) Description 01/24/2024 1:00 PM EDT Appointment [place] [address] Simin Bay MD [facility] DR OBSTETRICS [place] [address] 01/24/2024 2:00 PM EDT Routine Obstetrics [place] [address] Taty Ramos MD [facility] MATERNAL & [place] [address] 02/07/2024 9:00 AM EDT Appointment Radiology at [place] [phone] Simin Bay MD [facility] OBSTETRICS [place] [address] 02/07/2024 10:15 AM EDT Routine Obstetrics and Gynecology at [place] [phone] Linda Diaz MD [facility] [place]NAL [place] [address] 03/12/2024 10:45 AM EST Office Visit Endocrinology at [place] [phone] James Barth DO [facility] [place] [address] 05/23/2024 Hospital Encounter Birthing [place] [phone] Maite Malloy MD [facility] OBSTETRICS [place] [address] documented as of this encounter Results * XR Fluoro Guided Joint Injection Large Left (03/20/2017 3:21 PM EST) Anatomical Region Laterality Modality Left Radio Fluoroscop y Impressions 03/20/2017 4:16 PM EST Uneventful left glenohumeral injection under fluoroscopy. Resident/Fellow: None Attending: Dr. Sloane RODGERS Procedure performed by Sally Joya APRN Narrative 03/20/2017 4:16 PM EST HISTORY: Left shoulder pain, inject for diagnostic/therapeutic purposes. LEFT SHOULDER JOINT INJECTION UNDER FLUOROSCOPY TECHNIQUE: After an extensive conversation with the patient regarding risks and benefits, oral and written consent were obtained. ??A pre- procedural time-out was performed as per [facility] protocol. The patient was placed supine on [...] A pre- proceduraltime-out was performed as per [facility] protocol. The patient was placed supine on [...] glenohumeral joint space. 2. PAIN SCORE: Before: 10 After: 3. Fluoroscopy time: 0.10 minutes 4. Medications: Lidocaine 1% - <5 ml, for subcutaneous anesthesia Ropivacaine HCL 0.5% - 3 ml Triamciolone Acetonide - 40 mg COMPLICATIONS: None immediate. POST-PROCEDURE CARE: Information regarding monitor of infection, post- procedural pain and management of steroid flare were reviewed withpatient. IMPRESSION Uneventful left glenohumeral injection under fluoroscopy. Resident/Fellow: None Attending: Dr. Sloane RODGERS Procedure performed by Sally Joya APRN Kedar Santos MD IMG FLUORO ORDERABLE S * US Guided Tendon Sheath Injection Left (03/20/2017 3:21 PM EST) Anatomical Region Laterality Modality Left Radio Fluoroscop y Impressions 03/20/2017 4:01 PM EST Uneventful left long head the biceps tendon sheath joint injection under sonographic guidance. Resident/ Fellow: None. Attending: Sloane RODGERS M.D. I performed this procedure. Narrative 03/20/2017 4:01 PM EST HISTORY: Left shoulder pain. LEFT LONG HEAD OF THE BICEPS TENDON SHEATH INJECTION UNDER SONOGRAPHIC GUIDANCE TECHNIQUE: After an extensive conversation with the patient regarding risks and benefits, oral and written consent were obtained. ??A pre- procedural time-out was performed as per [facility] protocol. The patient was placed supine on [...] flare were reviewed with patient. Procedure Note Sloane Rodgers MD - 03/20/2017 HISTORY: Left shoulder pain. LEFT LONG HEAD OF THE [place]ICEPS TENDON SHEATH INJECTION UNDER SONOGRAPHICGUIDANCE TECHNIQUE: After an extensive conversation with the patient regarding risks andbenefits, oral and written consent were obtained. A pre- procedural time-out was performed as per [facility] protocol. The patient was placed supine on [...] under sonographic guidance. Resident/ Fellow: None. Attending: Sloane RODGERS M.D. I performed this procedure. Kedar Santos MD [facility] PROC ORDERABL ES documented in this encounter Visit Diagnoses Diagnosis Left shoulder pain, unspecified chronicity Left shoulder pain, unspecified chronicity documented in this encounter Care Teams Sewer Pipe Cleaner Relationship Specialty Start Date End Date Valencia Adhikari, DESIGN SALES CONSULTANT [address] [place] [id number] PCP - General 04/21/14 07/04/23 documented as of this encounter
--- OUTSIDE RECORDS SUMMARY | 2024-01-23 17:58 | XMS_ITS | Encounter Summary ---
Author Organization [facility] [place] [address] Care Team Providers Care Stripper Soft Plastic Name Role Phone None Primary Care Provider Unavailabl e Reason for Visit * Reason Comments Routine Visit Encounter Details Date Type Department Care Team (Latest Contact Info) Description 07/04/2012 4:15 PM EDT Routine Obstetrics [place] [address] Walt Bay MD [facility] DR OBSTETRICS AND [place] [address] GA: [id number] Discharge Disposition: Home Social History [...] Reviewed causes of diastasis; recommendations. GTT at [facility]; slip given. RTC 2 weeks for cervical length. If normal length, no further surveillance. documented in this encounter Plan of Treatment Upcoming Encounters Date Type Department Care Team (Late st Contact Info) Description 01/24/2024 1:00 PM EDT [place] [address] Walt Bay MD [facility] DR OBSTETRICS AND [place] [address] 01/24/2024 2:00 PM EDT Routine Obstetrics [place] [address] Taty Ramos MD [facility] DR MATERNAL & [place] [address] 02/07/2024 9:00 AM EDT [place] [address] Walt Bay MD [facility] OBSTETRICS AND [place] [address] 02/07/2024 10:15 AM EDT Routine Obstetrics [place] [address] Linda Diaz MD [facility] MATERNAL [place] [address] 03/12/2024 10:45 AM EST Office Visit Endocrinology at [place] [phone] James Barth DO [facility] ENDOCRINOLOGY [place] [address] 05/23/2024 [place] [address] Maite Malloy MD [facility] OBSTETRICS AND [place] [address] documented as of this encounter Visit Diagnoses Diagnosis Migraine- Primary Migraine, unspecified, without mention of intractable migraine without mention of status migrainosus , supervision of, high-risk Unspecified high-risk documented in this encounter Care Teams Stripper Soft Plastic Relationship Specialty Start Date End Date None None PCP - General 05/08/12 04/20/14 documented as of this encounter
--- OUTSIDE RECORDS SUMMARY | 2024-01-23 17:58 | XMS_ITS | Encounter Summary ---
Author Organization [facility] [place] [address] Care Team Providers Care Life Skills Worker Name Role Phone None Primary Care Provider Unavailabl e Reason for Visit * Reason Onset Date Comments Advice Only 09/30/2012 Encounter Details Date Type Department Care Team (Late Contact Info) Description 09/30/2012 Telephone Endocrinology at [facility] [place] [phone] Omayra Meredith LPN Advice Only Social History [...] ago and is still here at [facility] (born 8 week early) Order to be placed here. If baby discharged within two weeks patient will call to have order faxed to local lab. documented in this encounter Plan of Treatment Upcoming Encounters Date Type Department Care Team (Late st Contact Info) Description 01/24/2024 1:00 PM EDT Appointment Radiology at [place] [address] [facility] [place] [address] 01/24/2024 2:00 PM EDT Routine Obstetrics and Gynecology at [place] [address] [facility] MATERNAL & [place] [address] 02/07/2024 9:00 AM EDT Appointment Radiology at [place] [address] [facility] [place] [address] 02/07/2024 10:15 AM EDT Routine Obstetrics and Gynecology at [address] [facility] [place] [address] 03/12/2024 10:45 AM EST Office Visit Endocrinology at [address] [facility] [place] [address] 05/23/2024 Hospital Encounter Birthing [address] [facility] [place] [address] documented as of this encounter Visit Diagnoses Not on filedocumented in this encounter Care Teams Life Skills Worker Relationship Specialty Start Date End Date None None PCP - General 05/08/12 04/20/14 documented as of this encounter
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
--- OUTSIDE RECORDS SUMMARY | 2024-01-23 17:58 | XMS_ITS | Encounter Summary ---
Author Organization [facility] Address [facility] [place] [address] Care Team Providers Care Financial Associate Name Role Phone None Primary Care Provider Unavailabl e Reason for Visit * Reason Comments Laboring Encounter Details Date Type Department Care Team (Latest Contact Info) Description 09/13/2012 12:09 AM EDT - 09/14/2012 12:06 PM EDT Hospital [place] [phone] Mely Mccord MD [facility] OBSTETRICS [place] [address] Hypothyroidism (Primary Dx); Abnormal antibody titer; Depression; [...] V RN - 09/14/2012 11:38 [place] [address] [facility] to contact OB doctor [phone] to contact family doctor to contact oven tender bagels Andree Wallis-Tamara @ 09/14/12 @ 11:37 AM Following your visit to [facility] Triage Reason for Visit: Chief Complaint Patient presents with ??? Laboring Gestation - under 37 weeks Notify your provider if: You are feeling any cramping sensations in your abdomen more than 20 minutes apart Carson-Vazquez Contractions usually are irregular may get less [...] a vaginal exam in your doctor's or oven tender bagels's office you should not bleed as much as a period You have noticed a marked decrease in your baby's movement refer to your kick count instructions in the Your Journey book Your baby should move at least 10 times in 2 hours You have had any direct trauma to your abdomen such as a car accident, fall, or impact Call your doctor or oven tender bagels if you have the following symptoms: Headache [...] dehydratio Keep your regularly scheduled doctor or oven tender bagels appointment Your medications: Current Facility-Administered Medications on [...] by mouth nightly. 30 tablet 2 ??? 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 Managed by endocrine. Synthroid dose recently increased [...] Post-surgical hypothyroidism: follicular adenoma removed 03/2011 at [facility]. Managed by endocrine. Synthroid dose recently increased from 200mcg QD to 250mcg QD as TSH was most recently 34.90. Continue 250mcg QD. Repeat TSH planned for 10/05/12 - 1 month after dose change. 2. Marijuana use - urine tox positive, as it has been throughout Mely Klein MD PGY-4 #[id number] * Valencia Meehan RN - 09/13/2012 10:32 [...] Office of Care Management (OCM) / Clinical Pastry Cook (CRC)/ Initial Assessment Discussed patient with Provider [...] with FOB off. Loss of job.Seen by GAUGE MACHINE OPERATOR 7 days ago during last admission. Referred again for social work support. ADVANCE DIRECTIVES: None HEALTH /PRESCRIPTION COVERAGE: Health Plans, [facility] Under her mother's plan CURRENT HOME/COMMUNITY SERVICES/EQUIPMENT: DME: None Home Health Agency: Connected with [facility]. Referred to [facility] for childbirth education, and free food,diapers, car seat assistance. Other: N/A GAUGE MACHINE OPERATOR REFERRAL: Notified GAUGE MACHINE OPERATOR - for Support/Financial/Medication Assistance; See GAUGE MACHINE OPERATOR notes for further needs. PRIMARY CARE PHYSICIAN: None None None POTENTIAL DISCHARGE NEEDS: Education. ? [facility] home staging specialist PATIENT/FAMILY EDUCATION NEEDS: labor, preparation for childbirth ANTICIPATED BARRIERS TO DISCHARGE: None TRANSPORTATION @ D/C: Mother (who is employed at [facility]) PLAN: CRC will continue to monitor progress, [...] Post-surgical hypothyroidism: follicular adenoma removed 03/2011 at [facility]. Managed by endocrine. Synthroid dose recently increased from 200mcg QD to 250mcg QD as TSH was most recently 34.90. Continue 250mcg QD. Repeat TSH planned for 10/05/12 - 1 month after dose change. 2. Marijuana use - urine tox positive, as it has been throughout Mely Klein MD PGY-4 #[id number] MFM attending note I saw and evaluated [...] notified and RN redirected to Programer at [phone]. Pt accepted into e[facility] at 0500 and [...] Provider (if early referral or co-managed by [facility]): [facility] - [facility] Chief Complaint: Andree Hummel was admitted [...] Post-surgical hypothyroidism: follicular adenoma removed 03/2011 at [facility]. Managed by endocrine. Synthroid dose recently increased [...] DISSECTION performed by JUAN ESPARZA at [facility] MAIN OR ??? Somatosensory test, any/all per. nerves, trunk or head 03/22/2011 FACIAL NERVE MONITORING, SETUP performed by JUAN ESPARZA at [facility] MAIN OR ??? [place] tooth extraction ??? Upper gastrointestinal endoscopy for [...] by mouth nightly. 30 tablet 2 ??? fzqhaaluwx-cpbtfsyghzzif-aybrfyne (FIORICET, ESGIC) per tablet Take 1 tablet [...] results found for this basename: GLUCDOSE, GLUCBASELINE, GGRKYST7CH, LABGLUC2, LABGLUC3, Lab Results Component Value Date [...] Post-surgical hypothyroidism: follicular adenoma removed 03/2011 at [facility]. Managed by endocrine. Synthroid dose recently increased [...] Mccord MD Discharge Summary Antepartum Care Provider: [facility] Referring Provider if applicable: n/a Discharge Diagnoses (Hospital Problems) and Secondary Diagnoses (Chronic Problems): Active Hospital Problems Diagnoses ??? Threatened labor, antepartum ??? , supervision of, high-risk Team [facility] transfer of care from [facility] Delivery plan GBS date & Result Cystic [...] care. ??? , supervision of, high-risk Team [facility] transfer of care from [facility] Delivery plan GBS date & Result Cystic [...] Andree WallisYasir is a 22 y.o. year [id number] female, GBS neg, with an ZAYDA of [...] Post-surgical hypothyroidism: follicular adenoma removed 03/2011 at [facility]. Managed by endocrine. Synthroid dose recently increased [...] 09/05/2012, Until Discontinued, Disp-30 tablet, R-2, Normal fpugiakccg-zixasdkmnkedf-dmjlgslw (FIORICET, ESGIC) per tablet Take 1 tablet [...] DISSECTION performed by JUAN ESPARZA at [facility] MAIN OR ??? Somatosensory test, any/all per. nerves, trunk or head 03/22/2011 FACIAL NERVE MONITORING, SETUP performed by JUAN ESPARZA at [facility] MAIN OR ??? [place] tooth extraction ??? Upper gastrointestinal endoscopy for [...] sexual intercourse, long shopping trips. General Instructions [address] to contact OB doctor [phone] to contact family doctor to contact oven tender bagels Andree Wallis-Tamara @ 09/14/12 @ 11:37 AM Following your visit to [facility] Triage Reason for Visit: Chief Complaint [...] a vaginal exam in your doctor's or oven tender bagels's office you should not bleed as much as a period You have noticed a marked decrease in your baby's movement refer to your kick count instructions in the Your Journey book Your baby should move at least 10 times in 2 hours You have had any direct trauma to your abdomen such as a car accident, fall, or impact Call your doctor or oven tender bagels if you have the following symptoms: Headache [...] dehydratio Keep your regularly scheduled doctor or oven tender bagels appointment Your medications: Current Facility-Administered Medications on [...] by mouth nightly. 30 tablet 2 ??? gjhvhyegyu-aptvfwyakznqo-ltxwfulj (FIORICET, ESGIC) per tablet Take 1 tablet [...] Department: Dept Phone: Center: 11/28/2012 1:40 PM Ynaeth Griffith MD Psychiatry and Behavioral Health [phone] [facility] Joint Appt Questionnaire Five D Res-Psych [facility] 5D [phone] [facility] Referrals:none MELY KLEIN MD 09/15/2012 Cc: * Miscellaneous - Provider, Scanning - 09/13/2012 3:59 PM EDT documented in this encounter Plan of Treatment Upcoming Encounters Date Type Department Care Team (Late st Contact Info) Description 01/24/2024 1:00 PM EDT [place] [phone] Simin Bay MD [facility] DR OBSTETRICS [place] [address] 01/24/2024 2:00 PM EDT Routine Obstetrics [place] [phone] Taty Ramos MD [facility] MATERNAL & [place] [address] 02/07/2024 9:00 AM EDT Appointment Radiology at [place] [phone] Simin Bay MD [facility] OBSTETRICS [place] [address] 02/07/2024 10:15 AM EDT Routine Obstetrics and Gynecology at [address] Linda Diaz MD [facility] MATERNAL [place] [address] 03/12/2024 10:45 AM EST Office Visit Endocrinology at [place] [phone] James Barth DO [facility] [place]IN[place] [address] 05/23/2024 Hospital [place] [address] Maite Malloy MD [facility] OBSTETRICS [place] [address] documented as of this encounter Procedures Procedure [...] 09/13/2012 5:00 AM EDT TYPE AND SCREEN ([facility]/CARIE) Routine 09/13/2012 5:00 AM EDT documented in this encounter Results * Gest Diabetes Scrn, Glucose Dose (09/13/2012 4:15 PM EDT) Pathologist [facility] Oral Glucose Dose 50 gm CERNER MILLENNIUM Blood specimen (specimen) 09/13/2012 4:15 PM EDT 09/13/2012 4:23 PM EDT Mely Mccord MD CHEMISTRY ORDERABLES CERSWETA HARKINSENNIUM * Gluc 1 Hr (09/13/2012 4:15 PM EDT) Pathologist [facility] Glucose 1 hour 83 mg/dL CERNE R MILLENNIUM Blood specimen (specimen) 09/13/2012 4:15 PM EDT 09/13/2012 4:23 PM EDT Narrative Resulting Agency Comment Spec In Lab Mely Mccord MD CHEMISTRY ORDERABLES Performing Organization Address [facility]/State/ZIP Co de Phone Number CERSWETA HARKINSENNIUM * (ABNORMAL) Differential, Automated (09/13/2012 5:00 AM EDT) Neutrophil % 69.8 34.0 - 71.0 % CERNER MILLENNIUM Neutrophil Absolute 7.02(H) 1.50 - 6.30 x10(3)/mc L CERNER MILLENNIUM Lymph % 20.8 19.0 - 53.0 % CERNER MILLENNIUM Lymphocytes Abs 2.1 1.0 - 3.6 x10(3)/mc L CERNER MILLENNIUM Monocyte % 8.4 4.0 - 13.0 % CERNER MILLENNIUM Monocyte Abs 0.8 0.2 - 1.0 x10(3)/mc L CERNER MILLENNIUM Eos % 0.6 0.0 - 7.0 % CERNER MILLENNIUM Eosinophils Abs 0.1 0.0 - 0.5 x10(3)/mc L CERNER MILLENNIUM Basophil % 0.1 0.0 - 2.0 % CERNER MILLENNIUM Baso Absolute 0.0 0.0 - 0.2 x10(3)/mc L CERNER [...] performed. Immature Gran Absolute 0.03 0.00 - 0.05 x10(3)/mc L CERNER MILLENNIUM Blood specimen (specimen) 09/13/2012 5:00 AM EDT 09/13/2012 6:11 AM EDT Mely Mccord MD HEMATOLOGY ORDERABLE S HANNAH HARKINSENNIUM * Scan, Peripheral Blood (09/13/2012 5:00 AM EDT) Plat estimate Decreased CERNER MILLENNIUM RBC Morphology Abnormal CERNE R MILLENNIUM Macrocyte 1-5 /HPF CERNER MILLENNIUM Plat, Giant Less than 1 /HPF CERNER MILLENNIUM Blood specimen (specimen) 09/13/2012 5:00 AM EDT 09/13/2012 6:11 AM EDT Narrative Resulting Agency Comment Spec In Lab Mely Mccord MD HEMATOLOGY ORDERABLE S HANNAH HARKINSENNIUM * Antibody screen (09/13/2012 5:00 AM EDT) Ab Screen Interp Negative HANNAH HARKINSENNIUM Expires at [id number] on: [id number] HANNAH HARKINSENNIUM Blood specimen (specimen) 09/13/2012 5:00 AM EDT 09/13/2012 6:09 AM EDT Narrative Resulting Agency Comment Spec In Lab Mely Mccord MD BLOOD BANK LAB ORDER AMANDA Performing Organization Address City/[facility]/ZIP Co de Phone Number HANNAH POTTERIUM * ABO/Rh Typing (09/13/2012 5:00 AM EDT) Pathologist [facility] ABORH Type A Pos HANNAH POTTERIUM Blood specimen (specimen) 09/13/2012 5:00 AM EDT 09/13/2012 6:09 AM EDT Narrative Resulting Agency Comment Spec In Lab Mely Mccord MD BLOOD BANK LAB ORDER AMANDA Performing Organization Address City/[facility] Co de Phone Number HANNAH SERRANO * (ABNORMAL) Rapid Qual Drug Screen, Urine ([facility]) (09/13/2012 5:00 AM EDT) [facility] TIFFANIE Marijuana Metabolites Screen Presumptive Pos(A) None Detected [facility] Comment: The marijuana metabolites screen detects the THC Metabolite (72-qsq-0-carboxy- 9-THC) at concentrations >50 ng/mL. Qualitative Drug screens are reported as None Detected or Presumptive Positive as the results are not routinely confirmed by highly-specific methods. As with any screen occasional false positive results from cross-reacting substances can occur. Not for Medico-Legal Purposes. Phencyclidine Screen, Urine None Detected None Detected [facility] Comment: The phencyclidine screen detects phencyclidine at concentrations >25 ng/mL. Qualitative Drug screens are reported as None Detected or Presumptive Positive as the results are not routinely confirmed by highly-specific methods. As with any screen occasional false positive results from cross-reacting substances can occur. Not for Medico-Legal Purposes. TIFFANIE Cocaine Metabolites Screen None Detected None Detected [facility] Comment: The cocaine metabolites screen detects benzoylecgonine (Cocaine Metabolite) at concentrations >150 ng/mL. Qualitative Drug screens are reported as None Detected or Presumptive Positive as the results are not routinely confirmed by highly-specific methods. As with any screen occasional false positive results from cross-reacting substances can occur. Not for Medico-Legal Purposes. Methamphetamines Screen, Urine None Detected None Detected CERNER MILLENNIUM Comment: The methamphetamine screen detects d-methamphetamine at concentrations >500 ng/mL. Qualitative Drug screens are reported as None Detected or Presumptive Positive as the results are not routinely confirmed by highly-specific methods. As with any screen occasional false positive results from cross-reacting substances can occur. Not for Medico-Legal Purposes. TIFFANIE Opiates Screen Presumptive Pos(A) None Detected CERNER MILLENNIUM Comment: The opiates screen detects opiates at a concentration >100 ng/mL and oxymorphone >250 ng/mL. Qualitative Drug screens are reported as None Detected or Presumptive Positive as the results are not routinely confirmed by highly-specific methods. As with any screen occasional false positive results from cross-reacting substances can occur. Not for Medico-Legal Purposes. TIFFANIE Amphetamines Screen None Detected None Detected CERNER MILLENNIUM Comment: The amphetamine screen detects d-amphetamine at concentrations >500 ng/mL. Qualitative Drug screens are reported as None Detected or Presumptive Positive as the results are not routinely confirmed by highly-specific methods. As with any screen occasional false positive results from cross-reacting substances can occur. Not for Medico-Legal Purposes. TIFFANIE Benzodiazepines Screen None Detected None Detected CERNER MILLENNIUM Comment: [...] occur. Not for Medico-Legal Purposes. TIFFANIE Tricyclics Screen None Detected None Detected CERNER MILLENNIUM Comment: [...] substances can occur. Not for Medico-Legal Purposes. TFIFANIE Methadone Screen None Detected None Detected CERNER MILLENNIUM Comment: The methadone screen detects methadone at concentrations >200 ng/mL. Qualitative Drug screens are reported as None Detected or Presumptive Positive as the results are not routinely confirmed by highly-specific methods. As with any screen occasional false positive results from cross-reacting substances can occur. Not for Medico-Legal Purposes. TFIFANIE Barbiturates Screen Presumptive Pos(A) None Detected CERNER MILLENNIUM Comment: [...] occur. Not for Medico-Legal Purposes. TIFFANIE Oxycodone Srceen None Detected None Detected CERNER MILLENNIUM Comment: The oxycodone screen detects oxycodone at concentrations >100 ng/mL and oxymorphone >250 ng/ml. Qualitative Drug screens are reported as None Detected or Presumptive Positive as the results are not routinely confirmed by highly-specific methods. As with any screen occasional false positive results from cross-reacting substances can occur. Not for Medico-Legal Purposes. Propoxyphene Screen, Urine None Detected None Detected CERNER MILLENNIUM Comment: The propoxyphene screen detects propoxyphene at concentrations >300 ng/mL. Qualitative Drug screens are reported as None Detected or Presumptive Positive as the results are not routinely confirmed by highly-specific methods. As with any screen occasional false positive results from cross-reacting substances can occur. Not for Medico-Legal Purposes. TIFFANIE Buprenorphine Screen None Detected None Detected CERNER MILLENNIUM Comment: [...] Mccord MD URINE ORDERABLES Performing Organization Address City/[facility]/ZIP Co de Phone Number HANNAH POTTERIUM * (ABNORMAL) Rubella Antibody, IgG (09/13/2012 5:00 AM EDT) Pathologist [facility] Rubella Antibody IgG Negative( A) Positive CERNER MILLENNIUM Comment: Please note: ??A positive result for this assay indicates that antibody levels are >or= 10.0 IU/mL and is considered to be an indicator of positive immune status. Blood specimen (specimen) 09/13/2012 5:00 AM EDT 09/13/2012 6:11 AM EDT Narrative Resulting Agency Comment Spec In Lab Mely Mccord MD CHEMISTRY ORDERABLES Performing Organization Address [facility] Co de Phone Number CERSWETA HARKINSENNIUM * (ABNORMAL) CBC (with Diff) (09/13/2012 5:00 AM EDT) Pathologist [facility] White Blood Cell 10.1(H) 4.0 - 10.0 x10(3)/mc L CERNER MILLENNIUM Red Blood Cell 3.45(L) 3.93 - 5.22 x10(6)/mc L CERNER MILLENNIUM Hemoglobin 11.7 11.2 - 15.7 gm/dL CERNER MILLENNIUM Hematocrit 34.3 34.0 - 45.0 % CERNER MILLENNIUM Mean Cell Volume 99.4(H) 79.0 - 94.0 fL CERNER MILLENNIUM Mean Cell Hemoglobin 33.9(H) 26.6 - 32.2 pg CERNER MILLENNIUM Mean Cell Hemoglobin Concentration 34.1 32.0 - 36.5 gm/dL CERNER MILLENNIUM Platelet 127(L) 145 - 370 x10(3)/mc L CERNER MILLENNIUM RDW Standard Deviation 49.0(H) 35.0 - 46.0 fL CERNER MILLENNIUM RDW coefficient of variation 13.6 10.9 - 14.4 % CERNER MILLENNIUM Mean Platelet Volume 13.9(H) 9.0 - 12.0 fL CERNER MILLENNIUM Blood specimen (specimen) 09/13/2012 5:00 [...] AM EDT 4 mg vitamin 27 & pluyvjk-gzhg-JV 60 mg iron-1 mg tablet Tab 1 [...] Carmen Cisneros RN)0615 (Due) vitamin 27 & mgqvrnm-aajo-AQ 60 mg iron-1 mg tablet Tab 1 [...] Oral, EVERY 4 HOURS PRN, Starting on 09/13/12 at 0549, Until 09/14/12 at 1413, Pain, [...] RN) documented in this encounter Care Teams Financial Associate Relationship Specialty Start Date End Date None None PCP - General 05/08/12 04/20/14 documented as of this encounter
--- OUTSIDE RECORDS SUMMARY | 2024-01-23 17:58 | XMS_ITS | Encounter Summary ---
Author Organization [facility] Address [facility] [place] [address] Care Team Providers Care Manual Qa Tester Name Role Phone None Primary Care Provider Unavailabl e Encounter Details Date Type Department Care Team (Latest Contact Info) Description 09/18/2012 10:28 AM EDT - 09/18/2012 10:29 AM EDT Hospital [place] [address] Myles Shipman MD [facility] DR OBSTETRICS & [place] [address] Discharge Disposition: Home Social History Tobacco Use [...] 01/24/2024 1:00 PM EDT Appointment Radiology at [place] [phone] Walt Bay MD [facility] DR OBSTETRICS [place] [address] 01/24/2024 2:00 PM EDT Routine Obstetrics and Gynecology at [place] [phone] Taty Ramos MD [facility] MATERNAL & [place] [address] 02/07/2024 9:00 AM EDT [place] [phone] Walt Bay MD [facility] OBSTETRICS [place] [address] 02/07/2024 10:15 AM EDT Routine Obstetrics [place] [phone] Linda Diaz MD [facility] MATERNAL [place] [address] 03/12/2024 10:45 AM EST Office [place] [address] James Barth DO [facility] [place]IN[place] [address] 05/23/2024 [place] [address] Maite Malloy MD [facility] OBSTETRICS [place] [address] documented as of this encounter Visit Diagnoses Not on filedocumented in this encounter Care Teams Manual Qa Tester Relationship Specialty Start Date End Date None None PCP - General 05/08/12 04/20/14 documented as of this encounter
--- OUTSIDE RECORDS SUMMARY | 2024-01-23 17:58 | XMS_ITS | Encounter Summary ---
Author Organization [facility] [place] [address] Care Team Providers Care Emergency Management Program Specialist Name Role Phone None Primary Care Provider Unavailabl e Reason for Visit * Reason Onset Date Comments Labs Only 11/14/2012 Encounter Details Date Type Department Care Team (Late st Contact Info) Description 11/14/2012 Telephone Endocrinology at [facility] [phone] Omayra Meredith LPN Labs Only Social History [...] to have lab order to go to [facility]. TSH order electronically faxed. Patient told that if when she arrives at lab order is not they should not leave but ask lab to call us. Patient agrees with plan of care. documented in this encounter Plan of Treatment Upcoming Encounters Date Type Department Care Team (Late st Contact Info) Description 01/24/2024 1:00 PM EDT Appointment Radiology at [place] [address] Walt Bay MD [facility] OBSTETRICS [place] [address] 01/24/2024 2:00 PM EDT Routine Obstetrics and Gynecology at [address] Taty Ramos MD [facility] MATERNAL & [place] [address] 02/07/2024 9:00 AM EDT Appointment Radiology at [place] [address] Walt Bay MD [facility] OBSTETRICS [place] [address] 02/07/2024 10:15 AM EDT Routine Obstetrics and Gynecology at [address] Linda Diaz MD [facility] [place] [address] 03/12/2024 10:45 AM EST Office Visit Endocrinology at [address] James Barth DO [facility] [place] [address] 05/23/2024 [place] [address] Maite Malloy MD [facility] OBSTETRICS [place] [address] documented as of this encounter Results * (ABNORMAL) TSH (12/12/2012) Thyroid Stimulating Hormone 0.15(EXTER NAL/ABN) Blood specimen (specimen) Griffin Wallis III, MD CHEMISTRY ORDER AMANDA documented in this encounter Visit Diagnoses Diagnosis Hypothyroidism- Primary Unspecified hypothyroidism documented in this encounter Care Teams Emergency Management Program Specialist Relationship Specialty Start Date End Date None None PCP - General 05/08/12 04/20/14 documented as of this encounter
--- OUTSIDE RECORDS SUMMARY | 2024-01-23 17:58 | XMS_ITS | Encounter Summary ---
Author Organization [facility] Address [facility] [place] [address] Care Team Providers Care Automatic Pinsetter Mechanic Name Role Phone None Primary Care Provider Unavailabl e Reason for Visit * Reason Comments Abdominal Cramping Encounter Details Date Type Department Care Team (Latest Contact Info) Description 07/10/2012 10:58 PM EDT - 07/11/2012 12:38 AM EDT Hospital Encounter [place]thing [place] [address] Maite Marks MD [facility] OB[place] [address] Discharge Disposition: Home Social History Tobacco Use [...] Perkins RN - 07/11/2012 12:35 [place] [address] [facility] to contact OB doctor [phone] to contact family doctor to contact rotary lithographic press operator Andree Hummel [email or web address] 12:35 AM Following your visit to [facility] Triage Reason for Visit: Chief [...] a vaginal exam in your doctor's or rotary lithographic press operator's office you should not bleed as [...] fall, or impact Call your doctor or rotary lithographic press operator if you have the following symptoms: [...] dehydratio Keep your regularly scheduled doctor or rotary lithographic press operator appointment Your medications: No current facility-administered medications on file prior to encounter. Current Outpatient Prescriptions on File Prior to Encounter Medication Sig Dispense Refill ??? eyzvastkpy-frkpwxuxvrtxs-dapbvkuc (FIORICET, ESGIC) per tablet Take 1 tablet [...] TRIAGE NOTE Andree Hummel 22 y.o. 22w1d [id number] CC: I fell on my left side [...] 01/24/2024 1:00 PM EDT Appointment Radiology at [facility] [place] [address] Walt Bay MD [facility] [place] [address] 01/24/2024 2:00 PM EDT Routine Obstetrics and Gynecology at [place] [address] Taty Ramos MD [facility] MATERNAL & [place] [address] 02/07/2024 9:00 AM EDT Appointment Radiology at [place] [address] Walt Bay MD [facility] [place] [address] 02/07/2024 10:15 AM EDT Routine Obstetrics and Gynecology at [place] [address] Linda Diaz MD [facility] [place] [address] 03/12/2024 10:45 AM EST Office Visit Endocrinology at [place] [address] James Barth DO [facility] [place] [address] 05/23/2024 Hospital Encounter Birthing [place] [address] Maite Malloy MD [facility] [place] [address] documented as of this encounter Visit Diagnoses Not on filedocumented in this encounter Active and Recently Administered Medications Care Teams Automatic Pinsetter Mechanic Relationship Specialty Start Date End Date None None PCP - General 05/08/12 04/20/14 documented as of this encounter
--- OUTSIDE RECORDS SUMMARY | 2024-01-23 17:58 | XMS_ITS | Encounter Summary ---
Author Organization [facility] Address [facility] [place] [address] Care Team Providers Care Silk Finisher Name Role Phone None Primary Care Provider Unavailabl e Reason for Referral * Psychiatric (Routine) - Closed Specialty Diagnoses / Procedures Referred By Lamont t Referred To Contact Psychiatry Diagnoses Unspecified high-risk Lalita Carmona MD [facility] OBSTETRICS [place] [address] Yaneth Griffith MD [facility] [place] [address] Referral ID Status Reason Start Date Expiration Date V isits Requested Visits Authorized [id number] Closed Consult, Test & Treat 08/08/2012 02/04/2013 1 1 Reason for Visit * Reason Comments Routine Visit Encounter Details Date Type Department Care Team (Late st Contact Info) Description 08/08/2012 10:00 AM EDT Routine Obstetrics [place] [address] Lalita Carmona MD [facility] OBSTETRICS [place] [address] GA: 26w2d Discharge Disposition: Home Social History [...] 01/24/2024 1:00 PM EDT Appointment [place] [phone] Simin Bay MD [facility] DR OBSTETRICS [place] [address] 01/24/2024 2:00 PM EDT Routine Obstetrics [place] [address] Taty Ramos MD [facility] MATERNAL & [place] [address] 02/07/2024 9:00 AM EDT Appointment Radiology at [address] Simin Bya MD [facility] DR OBSTETRICS [place] [address] 02/07/2024 10:15 AM EDT Routine Obstetrics and Gynecology at [address] Linda Diaz MD [facility] MATERNAL [place] [address] 03/12/2024 10:45 AM EST Office Visit Endocrinology at [address] James Barth DO [facility] DR [place] [address] 05/23/2024 Hospital Encounter Birthing [place] [phone] Maite Malloy MD [facility] OBSTETRICS [place] [address] Scheduled Referrals Name Type Priority Associated Diagnoses [...] * (ABNORMAL) TSH (08/08/2012 9:29 AM EDT) Thyroid Stimulating Hormone 0.03(L) 0.27 - 4.20 mcIU/mL CERNER MILLENNIUM Blood specimen (specimen) 08/08/2012 9:29 AM EDT 08/08/2012 9:33 AM EDT Narrative Resulting Agency Comment Spec In Lab Lalita Carmona MD CHEMISTRY ORDERABL ES HANNAH POTTERIUM * Hemoglobin and Hematocrit, blood (08/08/2012 9:29 AM EDT) Hemoglobin 12.2 11.2 - 15.7 gm/dL CERSWETA MILLENNIUM Hematocrit 35.4 34.0 - 45.0 % CERNER MILLENNIUM Blood specimen (specimen) 08/08/2012 9:29 AM EDT 08/08/2012 9:33 AM EDT Narrative Resulting Agency Comment Spec In Lab Lalita Carmona MD HEMATOLOGY ORDERAB LES HANNAH HARKINSENNIUM * Glucose 1 Hour Post Prandial (08/08/2012 9:29 AM EDT) Glucose Post Prandial, 1 Hour 128 mg/dL CERSWETA MILLENNIUM Blood specimen (specimen) 08/08/2012 9:29 AM EDT 08/08/2012 9:33 AM EDT Narrative Resulting Agency Comment Spec In Lab Lalita Carmona MD CHEMISTRY ORDERABL ES HANNAH SERRANO documented in this encounter Visit Diagnoses Diagnosis Unspecified high-risk - Primary documented in this encounter Care Teams Silk Finisher Relationship Specialty Start Date End Date None None PCP - General 05/08/12 04/20/14 documented as of this encounter
--- OUTSIDE RECORDS SUMMARY | 2024-01-23 17:58 | XMS_ITS | Encounter Summary ---
Author Organization [facility] [place] [address] Care Team Providers Care Cfo Name Role Phone None Primary Care Provider Unavailabl e Reason for Visit * Reason Onset Date Comments Post Hospital Discharge 09/16/2012 Encounter Details Date Type Department Care Team (Late st Contact Info) Description 09/16/2012 Telephone Obstetrics [place] [address] Eufemia Farias RN Post Hospital Discharge Social [...] Andree who has just been d/c'd from [facility] for labor. 31w3d with EDC October 20. . LMOM. 2nd call to check on Andree. Left contact information on machine. documented in this encounter Plan of Treatment Upcoming Encounters Date Type Department Care Team (Late st Contact Info) Description 01/24/2024 1:00 PM EDT Appointment Radiology at [place] [address] Walt Bay MD [facility] [place] [address] 01/24/2024 2:00 PM EDT Routine Obstetrics and Gynecology at [place] [address] Taty Ramos MD [facility] DR MATERNAL & [place] [address] 02/07/2024 9:00 AM EDT Appointment Radiology at [place] [address] Walt Bay MD [facility] [place] [address] 02/07/2024 10:15 AM EDT Routine Obstetrics and Gynecology at [place] [address] Linda Diaz MD [facility] [place] [address] 03/12/2024 10:45 AM EST Office Visit Endocrinology at [address] James Barth DO [facility] [address] 05/23/2024 Hospital [place] [address] Maite Malloy MD [facility] [place] [address] documented as of this encounter Visit Diagnoses Not on filedocumented in this encounter Care Teams Cfo Relationship Specialty Start Date End Date None None PCP - General 05/08/12 04/20/14 documented as of this encounter
--- OUTSIDE RECORDS SUMMARY | 2024-01-23 17:58 | XMS_ITS | Encounter Summary ---
Author Organization [facility] Address [facility] [place] [address] Care Team Providers Care Metaphysicist Name Role Phone None Primary Care Provider Unavailabl e Encounter Details Date Type Department Care Team (Late st Contact Info) Description 09/12/2012 Telephone Obstetrics [place] [address] Valorie Hair MD [facility] DR OBSTETRICS & [place] [address] Social History Tobacco Use Types Packs/Day Years [...] to patient. Patient reporting that she had Aimwell-Vazquez earlier today that went away. She then [...] 01/24/2024 1:00 PM EDT Appointment Radiology at [place] [phone] Walt Bay MD [facility] DR OBSTETRICS [place] [address] 01/24/2024 2:00 PM EDT Routine Obstetrics and Gynecology at [address] Taty Ramos MD [facility] MATERNAL [place] [address] 02/07/2024 9:00 AM EDT Appointment Radiology at [address] Walt Bay MD [facility] DR OBSTETRICS [place] [address] 02/07/2024 10:15 AM EDT Routine Obstetrics and Gynecology at [place] [phone] Linda Diaz MD [facility] [place] [address] 03/12/2024 10:45 AM EST Office [place] [address] James Barth DO [facility] [place] [address] 05/23/2024 Hospital Encounter Birthing [facility] [place] [address] Maite Malloy MD [facility] OBSTETRICS [place] [address] documented as of this encounter Visit Diagnoses Not on filedocumented in this encounter Care Teams Metaphysicist Relationship Specialty Start Date End Date None None PCP - General 05/08/12 04/20/14 documented as of this encounter
--- OUTSIDE RECORDS SUMMARY | 2024-01-23 17:58 | XMS_ITS | Encounter Summary ---
Author Organization [facility] [place] [address] Care Team Providers Care Digital Librarian Name Role Phone None Primary Care Provider Unavailabl e Encounter Details Date Type Department Care Team (Latest Contact Info) Description 06/12/2012 9:49 AM EST - 06/12/2012 11:59 PM EST Hospital Encounter Ultrasound at [facility] [place] [phone] , supervision of, high-risk Social History Tobacco [...] 01/24/2024 1:00 PM EDT Appointment Radiology at [place] [phone] Walt Bay MD [facility] DR OBSTETRICS [place] [address] 01/24/2024 2:00 PM EDT Routine Obstetrics and Gynecology at [address] Taty Ramos MD [facility] MATERNAL & [place] [address] 02/07/2024 9:00 AM EDT Appointment Radiology at [place] [phone] Walt Bay MD [facility] DR OBSTETRICS [place] [address] 02/07/2024 10:15 AM EDT Routine Obstetrics [place] [address] Linda Diaz MD [facility] [place] [address] 03/12/2024 10:45 AM EST Office Visit Endocrinology at [place] [phone] James Barth DO [facility] [place] [address] 05/23/2024 Hospital [place] [address] Maite Malloy MD [facility] OBSTETRICS [place] [address] documented as of this encounter Procedures Procedure [...] 06/12/2012 11:07 am) Patient Info ID: ? [id number] ? : ??[birth year] (21 yrs) Name: ? PREETHI Goody ?Visit Date: 06/12/2012 10:49 am ? LOUISE- ? FRANK Performed By Performed By: ?Itzel Lezama RDMS Attending: ? Mathew LIMA, Lalita Diop Referred By: ? E MELANY BAY MD Service(s) Provided [facility] - Targeted Morphology - Genetics - ? [id number] UOBTV - Viability - Cervical Length - Transvaginal - ??[id number] Indications hypothyroid; possible history of 20 week [...] ?63.5 ??% FL/AC: ? 20.7 ??% ? Est. FW: ? 299 ?? gm ?? [...] Tract: ?Visualized L Outflow Tract: ?Visualized Cardiac Groom: ? Visualized Diaphragm: ?Visualized Abdomen Ventral Wall: [...] Final 06/12/2012 11:07 am) Patient Info ID: [id number] : [birth year] (21 yrs) Name: PREETHI Godoy Visit Date: 06/12/2012 10:49 am MARIO MARIE Performed By Performed By: Itzel Lezama RDMS Attending: Lalita Carmona MD Referred By: Walt BAY MD Service(s) Provided [facility] - Targeted Morphology - Genetics - [id number] UOBTV - Viability - Cervical Length - Transvaginal - [id number] Indications hypothyroid; possible history of 20 week [...] Tract: Visualized L Outflow Tract: Visualized Cardiac Groom: Visualized Diaphragm: Visualized Abdomen Ventral Wall: Visualized [...] 06/12/2012 11:07 am E Melany Bay MD [facility] OB ORDERAB LES documented in this encounter Visit Diagnoses Diagnosis , supervision of, high-risk Unspecified high-risk documented in this encounter Care Teams Digital Librarian Relationship Specialty Start Date End Date None None PCP - General 05/08/12 04/20/14 documented as of this encounter
--- OUTSIDE RECORDS SUMMARY | 2024-01-23 17:58 | XMS_ITS | Encounter Summary ---
Author Organization [facility] Address [facility] [address] Care Team Providers Care Mailing Manager Name Role Phone None Primary Care Provider Unavailabl e Reason for Visit * Reason Comments Routine Visit Encounter Details Date Type Department Care Team (Latest Contact Info) Description 09/02/2012 9:15 AM EDT Routine Obstetrics [place] [address] Myles Shipman MD [facility] DR OBSTETRICS & [place] [address] GA: 29w6d Discharge Disposition: Home Social History [...] Miscellaneous Notes * Addendum Note - Melany Chapa - 09/02/2012 9:56 AM EDTAddended by: MELANY CHAPA on: 09/02/2012 09:56 AM Modules accepted: Orders documented in this encounter Plan of Treatment Upcoming Encounters Date Type Department Care Team (Late st Contact Info) Description 01/24/2024 1:00 PM [place] [address] Walt Bay MD [facility] DR OBSTETRICS [place] [address] 01/24/2024 2:00 PM EDT Routine Obstetrics [place] [phone] Taty Ramos MD [facility] MATERNAL & [place] [address] 02/07/2024 9:00 AM EDT [place] [phone] Walt Bay MD [facility] DR OBSTETRICS [place] [address] 02/07/2024 10:15 AM EDT Routine Obstetrics and Gynecology at [place] [phone] Linda Diaz MD [facility] DR [place]ERNAL [place] [address] 03/12/2024 10:45 AM EST Office Visit Endocrinology at [place] [phone] James Barth DO [facility] [place] [address] 05/23/2024 Hospital [place] [address] Maite Malloy MD [facility] DR OBSTETRICS [place] [address] documented as of this encounter Procedures Procedure Name Priority Date/Time Associated Diagnosis Comments TSH Routine 09/02/2012 10:04 AM EDT Hypothyroidism, postsurgical documented in this encounter Results * (ABNORMAL) TSH (09/02/2012 10:04 AM EDT) Thyroid Stimulating Hormone 34.90(H) 0.27 - 4.20 mcIU/mL HANNAH SERRANO Blood specimen (specimen) 09/02/2012 10:04 AM EDT 09/02/2012 10:13 AM EDT Narrative Resulting Agency Comment Spec In Lab Myles Shipman MD CHEMISTRY ORDERABLES [facility] documented in this encounter Visit Diagnoses Diagnosis , supervision of, high-risk- Primary Unspecified high-risk Hypothyroidism, postsurgical Postsurgical hypothyroidism Migraine Migraine, unspecified, without mention of intractable migraine without mention of status migrainosus documented in this encounter Care Teams Mailing Manager Relationship Specialty Start Date End Date None None PCP - General 05/08/12 04/20/14 documented as of this encounter
--- OUTSIDE RECORDS SUMMARY | 2024-01-23 17:58 | XMS_ITS | Encounter Summary ---
Author Organization [facility] Address [facility] [place] [address] Care Team Providers Care Cuffing Machine Operator Name Role Phone None Primary Care Provider Unavailabl e Encounter Details Date Type Department Care Team (Late st Contact Info) Description 09/30/2012 Orders [place] [address] Griffin Wallis III, MD [facility] [place] [address] Hypothyroidism (Primary Dx) Social History [...] 01/24/2024 1:00 PM EDT [place] [address] Walt Bay MD [facility] DR OBSTETRICS [place] [address] 01/24/2024 2:00 PM EDT Routine Obstetrics and Gynecology at [place] [address] Taty Ramos MD [facility] DR MATERNAL & [place] [address] 02/07/2024 9:00 AM EDT Appointment Radiology at [place] [address] Walt Bay MD [facility] DR OBSTETRICS [place] [address] 02/07/2024 10:15 AM EDT Routine Obstetrics and Gynecology at [place] [address] Linda Diza MD [facility] MATERNAL [place] [address] 03/12/2024 10:45 AM EST Office Visit Endocrinology at [place] [address] James Barth DO [facility] DR [place] [address] 05/23/2024 [place] [address] Maite Malloy MD [facility] DR OBSTETRICS [place] [address] documented as of this encounter Visit Diagnoses Diagnosis Hypothyroidism- Primary Unspecified hypothyroidism documented in this encounter Care Teams Cuffing Machine Operator Relationship Specialty Start Date End Date None None PCP - General 05/08/12 04/20/14 documented as of this encounter
--- OUTSIDE RECORDS SUMMARY | 2024-01-23 17:58 | XMS_ITS | Encounter Summary ---
Author Organization [facility] Address [facility] [place] [address] Care Team Providers Care Home Health Care Worker Name Role Phone None Primary Care Provider Unavailabl e Encounter Details Date Type Department Care Team (Late st Contact Info) Description 08/04/2012 Telephone Obstetrics [place] [address] Mely Klein MD [facility] DR OBSTETRICS & [place] [address] Social History Tobacco Use Types Packs/Day Years [...] 1:00 PM EDT Appointment Radiology at [address]1000 aWlt Bay MD [facility] DR OBSTETRICS [place] [address] 01/24/2024 2:00 PM EDT Routine Obstetrics and Gynecology at [address] Taty Ramos MD [facility] DR MATERNAL & [place] [address] 02/07/2024 9:00 AM EDT Appointment Radiology at [address]1000 Walt Bay MD [facility] DR OBSTETRICS [place] [address] 02/07/2024 10:15 AM EDT Routine Obstetrics and Gynecology at [place] [phone] Linda Diaz MD [facility] DR MATERNAL [place] [address] 03/12/2024 10:45 AM EST Office Visit Endocrinology at [address] James Barth DO [facility] ENDOCRINOLOGY [place] [address] 05/23/2024 [place] [address] Maite Malloy MD [facility] OBSTETRICS AND [place] [address] documented as of this encounter Visit Diagnoses Not on filedocumented in this encounter Care Teams Home Health Care Worker Relationship Specialty Start Date End Date None None PCP - General 05/08/12 04/20/14 documented as of this encounter
--- OUTSIDE RECORDS SUMMARY | 2024-01-23 17:58 | XMS_ITS | Encounter Summary ---
Author Organization [facility] [place] [address] Care Team Providers Care Electrician Research Name Role Phone None Primary Care Provider Unavailabl e Reason for Visit * Reason Onset Date Comments Muscle Pain 06/18/2012 Encounter Details Date Type Department Care Team (Late st Contact Info) Description 06/18/2012 Telephone Obstetrics and Gynecology at [facility] [place] [phone] Estelle Ribeiro RN Muscle Pain Social History [...] 01/24/2024 1:00 PM EDT Appointment Radiology at [address] Walt Bay MD [facility] OBSTETRICS AND [place] [address] 01/24/2024 2:00 PM EDT Routine Obstetrics and Gynecology at [address] Taty Ramos MD [facility] MATERNAL & [place] [address] 02/07/2024 9:00 AM EDT Appointment Radiology at [place] [address] Walt Bay MD [facility] OBSTETRICS [place] [address] 02/07/2024 10:15 AM EDT Routine Obstetrics and Gynecology at [address] Linda Diaz MD [facility] DR MATERNAL [place] [address] 03/12/2024 10:45 AM EST Office [place] [address] James Barth DO [facility] ENDOCRINOLOGY [place] [address] 05/23/2024 Hospital Encounter [place] [address] Maite Malloy MD [facility] DR OBSTETRICS AND [place] [address] documented as of this encounter Visit Diagnoses Not on filedocumented in this encounter Care Teams Electrician Research Relationship Specialty Start Date End Date None None PCP - General 05/08/12 04/20/14 documented as of this encounter
--- OUTSIDE RECORDS SUMMARY | 2024-01-23 17:58 | XMS_ITS | Encounter Summary ---
Author Organization [facility] [place] [address] Care Team Providers Care Back Tender Fourdrinier Name Role Phone None Primary Care Provider Unavailabl e Reason for Visit * Reason Onset Date Comments Medication Refill 08/08/2012 Encounter Details Date Type Department Care Team (Late st Contact Info) Description 08/08/2012 [place] [phone] Griffin Wallis III, MD [facility] DR [place] [address] Hypothyroidism (Primary Dx) Social History Tobacco Use [...] 01/24/2024 1:00 PM [place] [phone] Walt Bay MD [facility] OBSTETRICS [place] [address] 01/24/2024 2:00 PM EDT Routine Obstetrics and Gynecology at [address] Taty Ramos MD [facility] MATERNAL & [place] [address] 02/07/2024 9:00 AM EDT Appointment Radiology at [place] [address] Walt Bay MD [facility] OBSTETRICS [place] [address] 02/07/2024 10:15 AM EDT Routine Obstetrics [place] [address] Linda Diaz MD [facility] [place] [address] 03/12/2024 10:45 AM EST Office Visit Endocrinology at [place] [address] James Barth DO [facility] [place] [address] 05/23/2024 Hospital Encounter [place] [phone] Maite Malloy MD [facility] OBSTETRICS [place] [address] documented as of this encounter Visit Diagnoses Diagnosis Hypothyroidism- Primary Unspecified hypothyroidism documented in this encounter Care Teams Back Tender Fourdrinier Relationship Specialty Start Date End Date None None PCP - General 05/08/12 04/20/14 documented as of this encounter
--- OUTSIDE RECORDS SUMMARY | 2024-01-23 17:58 | XMS_ITS | Encounter Summary ---
Author Organization [facility] [place] [address] Care Team Providers Care Safety Equipment Tester Name Role Phone None Primary Care Provider Unavailabl e Encounter Details Date Type Department Care Team (Latest Contact Info) Description 07/04/2012 1:49 PM EDT - 07/04/2012 11:59 PM EDT Hospital Encounter Ultrasound at [facility] [place] [phone] History of loss in prior , currently [...] 01/24/2024 1:00 PM EDT Appointment Radiology at [address] Walt Bay MD [facility] DR OBSTETRICS [place] [address] 01/24/2024 2:00 PM EDT Routine Obstetrics and Gynecology at [address] Taty Ramos MD [facility] MATERNAL & [place] [address] 02/07/2024 9:00 AM EDT Appointment Radiology at [address] Walt Bay MD [facility] OBSTETRICS [place] [address] 02/07/2024 10:15 AM EDT Routine Obstetrics and Gynecology at [place] [phone] Linda Diaz MD [facility] MATERNAL [place] [address] 03/12/2024 10:45 AM EST Office Visit Endocrinology at [address] James Barth DO [facility] [place] [address] 05/23/2024 Hospital Encounter Birthing Betito [facility] [place] [phone] Maite Malloy MD [facility] DR OBSTETRICS [place] [address] documented as of this encounter Procedures Procedure [...] 07/04/2012 03:20 pm) Patient Info ID: ? [id number] ? : ??[birth year] (22 yrs) Name: ? SORURVASHI E ?Visit Date: 07/04/2012 03:03 pm ? LOUISE- ? FRANK Performed By Performed By: ?Itzel Lezama RDMS Attending: ? Anca LIMA, Phylicia Reyes Referred By: ? LALITA QUAN MD Service(s) Provided UOBTV - Viability - Cervical Length - Transvaginal - ??[id number] Indications cervical length Evaluation Num Of Fetuses: [...] Final 07/04/2012 03:20 pm) Patient Info ID: [id number] : [birth year] (22 yrs) Name: PREETHI Godoy Visit Date: 07/04/2012 03:03 pm MARIO MARIE Performed By Performed By: Itzel Lezama RDMS Attending: Phylicia March MD. Referred By: LALITA QUAN MD Service(s) Provided UOBTV - Viability - Cervical Length - Transvaginal - [id number] Indications cervical length Evaluation Num Of Fetuses: [...] of documented in this encounter Care Teams Safety Equipment Tester Relationship Specialty Start Date End Date None None PCP - General 05/08/12 04/20/14 documented as of this encounter
--- OUTSIDE RECORDS SUMMARY | 2024-01-23 17:58 | XMS_ITS | Encounter Summary ---
Author Organization [facility] Address [facility] [place] [address] Care Team Providers Care Wardrobe Specialist Name Role Phone None Primary Care Provider Unavailabl e Reason for Visit * Reason Comments Routine Visit Encounter Details Date Type Department Care Team (Latest Contact Info) Description 06/21/2012 1:00 PM EST Routine Obstetrics [place] [address] Maite Marks MD [facility] DR OBSTETRICS [place] [address] GA: [id number] Discharge Disposition: Home Social History [...] 01/24/2024 1:00 PM EDT Appointment Radiology at [place] [address] Walt Bay MD [facility] DR OBSTETRICS [place] [address] 01/24/2024 2:00 PM EDT Routine Obstetrics and Gynecology at [address] Taty Ramos MD [facility] DR MATERNAL & [place] [address] 02/07/2024 9:00 AM EDT Appointment Radiology at [address] Walt Bay MD [facility] DR OBSTETRICS [place] [address] 02/07/2024 10:15 AM EDT Routine Obstetrics and Gynecology at [address] Linda Diaz MD [facility] [place] [address] 03/12/2024 10:45 AM EST Office Visit Endocrinology at [place] [address] James Barth DO [facility] [place] [address] 05/23/2024 Hospital Encounter Birthing Betito [facility] [place] [phone] Maite Malloy MD [facility] OBSTETRICS [place] [address] documented as of this encounter Procedures Procedure Name Priority Date/Time Associated Diagnosis Comments URINALYSIS WITH REFLEX CULTURE Routine 06/21/2012 2:00 PM EST High-risk supervision documented in this encounter Results * Urinalysis with microscopic (06/21/2012 2:00 PM EST) Glucose, Urine Dipstick Negative Negative mg/dL CERNER MILLENNIUM Protein, Urine Dipstick Negative CERNER MILLENNIUM Bilirubin, Urine Dipstick Negative Negative mg/dL CERNER MILLENNIUM Urobilinogen, Urine Dipstick Normal CERNER MILLENNIUM pH, Urn (dipstick) 7.0 5.0 - 8.0 CERNER MILLENNIUM Blood, Urine Dipstick Negative CERNER MILLENNIUM Ketone, Urine Dipstick Negative CERNER MILLENNIUM Nitrite, Urine Dipstick Negative CERNER MILLENNIUM Leukocytes, Urine Dipstick Negative CERNER MILLENNIUM Appearance, Urine Dipstick Clear Clear CERNER MILLENNIUM Specific [place] Urine Automated 1.010 1.002 - 1.030 CERNER MILLENNIUM Color, Urine Dipstick Yellow Yellow CERNER MILLENNIUM RBC, Urine Not Present 0 - 4 CERNER MILLENNIUM WBC, Urine 1 0 - 5 /HPF CERNER MILLENNIUM Bacteria, Urine Moderate CERN ER MILLENNIUM Squamous Epithelial Cells, Urine 4 <=4 /HPF CERNER MILLENNIUM Transitional Epithelial Cells, Urine 1 <=1 /HPF CERNER MILLENNIUM Urine specimen (specimen) URINE SPECIMEN OBTAINED BY CLEAN CATCH PROCEDURE / Unknown 06/21/2012 2:00 PM EST 06/21/2012 2:00 PM EST Narrative Resulting Agency Comment Spec In Lab Maite Marks MD URINE ORDERABLES Performing Organization Address City/State/[facility] Co me Phone Number [facility] documented in this encounter Visit Diagnoses Diagnosis High-risk supervision- Primary Unspecified high-risk documented in this encounter Care Teams Wardrobe Specialist Relationship Specialty Start Date End Date None None PCP - General 05/08/12 04/20/14 documented as of this encounter
--- OUTSIDE RECORDS SUMMARY | 2024-01-23 17:58 | XMS_ITS | Encounter Summary ---
Author Organization Formerly [facility] [address] Care Team Providers Care Production Underwriter Name Role Phone None Primary Care Provider Unavailabl e Encounter Details Date Type Department Care Team (Latest Contact Info) Description 09/03/2012 7:12 PM EDT - 09/05/2012 10:55 AM [place] [address] Lalita Quan MD [facility] [address] OBSTETRICS [place] [address] Mely Mccord MD [facility] DR OBSTETRICS [place] [address] Hypothyroidism (Primary Dx); Threatened labor, antepartum Discharge [...] Luke N - 09/05/2012 10:22 AM EDT [facility] doctor [facility] [place] [address] to contact family doctor Following your visit to [facility] Triage ??N?DL?TL?? Reason for Visit: Provider: GESTATION - Less Than 37 Weeks Call your provider if: You are feeling any cramping sensations in your abdomen less than 20 minutes apart [place]-Vazquez Contractions usually are irregular may get less [...] a vaginal exam in your doctor's or circus artist's office you should not bleed as much [...] dehydration Keep your regularly scheduled doctor or circus artist appointment NEW MEDICATIONS: SPECIAL INSTRUCTIONS/FOLLOW-UP CARE: documented [...] living with her mother (an RN at [facility]), in [place], [place]. Patient requested information about childbirth classes. Provided flyer for [facility] and offered referral for scholarship. Suggested [...] friends who can visit, andhas a home theater expert from [facility]. A: Patient is a 22-year-old single woman, here for pre-term labor in setting of 30 week . Patient has a hx of prior loss. Patient is known to from OB Clinic (see Outpatient Care Management note of 06/12/12). Patient is being discharged to home today. Patient currently living with her mother (an RN at [facility]) in [place], [place]. Patient has support from her mother, friends, and [facility]. Patient with considerable stressors and hx of depression. Has declined medication during this . Patient with hx of substance abuse. (TIFFANIE presumptive + for THC on admission.) P: SW referring patient, at her request, to [facility] for scholarship for childbirth class. 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 Managed by endocrine. Synthroid dose recently decreased from 300mcg QD to 200mcg QD as TSH was 0.03. TSH on 09/02 was 34.90. Discussed with patient's mult au matic operator - increased dose to 250 mcg daily. [...] high-risk Team MFM transfer of care from [facility] Delivery plan GBS date & Result [...] Scr Latest Range: None Detected None Detected TIFFNAIE Cocaine Metabolites Scr Latest Range: None Detected [...] UA Latest Range: Clear Hazy (A) Spec [place] UA Latest Range: 1.002-1.030 1.006 pH UA [...] naive, will start mag for tocolysis vs WAX COATING MACHINE TENDER PRN progressive labor. Steroid status & Plan: Betamethasone #1 given Diet: clear liquids Ultrasound with cervical length today Consent obtained for CS, possible classical Consultations: none at present Additional Issues: 1. Reported 20 week prior loss 2. 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 Managed by endocrine. 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 Managed by endocrine. Synthroid dose recently decreased [...] NECK DISSECTION performed by JUAN ESPARZA at [facility] MAIN OR ??? Somatosensory test, any/all per. nerves, trunk or head 03/22/2011 FACIAL NERVE MONITORING, SETUP performed by JUAN ESPARZA at [facility] MAIN OR ??? Bluford tooth extraction ??? Upper gastrointestinal endoscopy for IBS, celiac excluded ??? Colonoscopy found polyps ??? Tonsillectomy 2010 Prior to Admission Medications Prescriptions prior to admission Medication Sig Dispense Refill ??? wbjwbgdzdq-swflngaovagki-khxbvwiy (FIORICET, ESGIC) per tablet Take 1 tablet [...] naive, will start mag for tocolysis vs WAX COATING MACHINE TENDER PRN progressive labor. ?? 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 Managed by endocrine. Synthroid dose recently decreased [...] Lalita Quan Discharge Summary Antepartum Care Provider: [facility] Referring Provider if applicable: n/a Discharge Diagnoses (Hospital Problems) and Secondary Diagnoses (Chronic Problems): Active Hospital Problems Diagnoses ??? Threatened labor, antepartum ??? , supervision of, high-risk Team [facility] transfer of care from [facility] Delivery plan GBS date & Result [...] care. ??? , supervision of, high-risk Team [facility] transfer of care from [facility] Delivery plan GBS date & Result Cystic fibrosis choice Aneuploidy choice QUAD Others screening tests nutrition Childbirth education declined preferences Contraception plan undecided Ped/circ plans Immunizations: Influenza vaccine Accepted Declined Contraindicated x Other vaccines Indicated Not indicated Given during Tdap x Pneumovax MMR Varicella Other ? ? Anti-Setuardo A&B antibodies ??? Hypothyroidism, postsurgical ??? 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 Managed by endocrine. Synthroid dose recently decreased [...] tablet, R-2, Normal Continued medications, unchanged Details xhhqktqmqf-pdjwbndtyydhj-gwprfhoe (FIORICET, ESGIC) per tablet Take 1 tablet [...] NECK DISSECTION performed by JUAN ESPARZA at [facility] MAIN OR ??? Somatosensory test, any/all per. nerves, trunk or head 03/22/2011 FACIAL NERVE MONITORING, SETUP performed by JUAN ESPARZA at [facility] MAIN OR ??? Bluford tooth extraction ??? Upper gastrointestinal endoscopy for [...] GCT - due to macrosomia General Instructions [facility] Cisse to contact OB doctor [facility] Mima to contact circus artist CRYSTAL Montes to contact family doctor Following [facility] Triage ??N?DL?TL?? Reason for Visit: Provider: GESTATION - Less Than 37 Weeks Call your provider if: You are feeling any cramping sensations in your abdomen less than 20 minutes apart 1. Edil-Vazquez Contractions usually are irregular may get [...] a vaginal exam in your doctor's or circus artist's office you should not bleed as much [...] 12. Keep your regularly scheduled doctor or circus artist appointment NEW MEDICATIONS: SPECIAL INSTRUCTIONS/FOLLOW-UP CARE: Future Appointments and Orders Future Appointments: Provider: Department: Dept Phone: Center: 09/12/2012 11:00 AM Lalita Quan MD Obstetrics and Gynecology [phone] [facility] 11/28/2012 1:40 PM Yaneth Griffith MD Psychiatry and Behavioral Health [phone] [facility] Joint Appt Questionnaire Five D Res-Psych LEB 5D [phone] [facility] Future Orders Please Complete By Expires Schedule appointment [[id number] Custom] Process Instructions: Scheduling Instructions: Comments: Questions: [...] 01/24/2024 1:00 PM EDT [place] [address] Walt Bay MD [facility] OBSTETRICS [place] [address] 01/24/2024 2:00 PM EDT Routine Obstetrics [place] [phone] Taty Ramos MD [facility] [address] MATERNAL & [place] [address] 02/07/2024 9:00 AM EDT Appointment Radiology at [place] [address] Walt Bay MD [facility] DR OBSTETRICS [place] [address] 02/07/2024 10:15 AM EDT Routine Obstetrics and Gynecology at [address] Linda Diaz MD [facility] [place] [address] 03/12/2024 10:45 AM EST Office Visit Endocrinology at [address] James Barth DO [facility] [place] [address] 05/23/2024 Hospital Encounter Birthing [place] [phone] Maite Malloy MD [facility] DR OBSTETRICS [place] [address] documented as of this encounter Procedures Procedure Name Priority Date/Time Associated Diagnosis Comments US OB FOLLOW UP Routine 09/04/2012 3:00 PM EDT URINALYSIS WITH REFLEX CULTURE Routine 09/03/2012 10:53 PM EDT URINE CULTURE Routine 09/03/2012 10:46 PM EDT HEPATITIS B SURFACE ANTIGEN Routine 09/03/2012 8:45 PM EDT HIV SCREEN, 4TH GENERATION ([facility]) Routine 09/03/2012 7:45 PM EDT SCAN, PERIPHERAL BLOOD Routine 3 7:45 PM EDT DIFFERENTIAL, AUTOMATED Routine 09/03/2012 7:45 PM EDT ABO/RH TYPING Routine 09/03/2012 7:45 PM EDT CBC (WITH DIFF) Routine 09/03/2012 7:45 PM EDT ANTIBODY SCREEN Routine 09/03/2012 7:45 PM EDT TYPE AND SCREEN ([facility]) Routine 09/03/2012 7:45 PM EDT GROUP B [...] 09/04/2012 03:08 pm) Patient Info ID: ? [id number] ? : ??[birth year] (22 yrs) Name: ? PREETHI Godoy ?Visit Date: 09/04/2012 02:50 pm ? LOUISE- ? FRANK Performed By Performed By: ?Ana Laura Urban Attending: ? Mathew LIMA, Lalita Diop Referred By: ? CHUCK JANE MD Service(s) Provided UOBFOL - Efw - Growth - Reevaluation - [place] ?[id number] - [id number] Indications 22yo at 30.0 wks admitted for [...] Final 09/04/2012 03:08 pm) Patient Info ID: [id number] : [birth year] (22 yrs) Name: PREETHI Godoy Visit Date: 09/04/2012 02:50 pm MARIO MARIE Performed By Performed By: Ana Laura Urban Attending: Lalita Quan MD Referred By: CHUCK JANE MD Service(s) Provided UOBFOL - Efw - Growth - Reevaluation - [place] [id number] - [id number] Indications 22yo at 30.0 wks admitted for [...] Urinalysis with microscopic (09/03/2012 10:53 PM EDT) Glucose, Urine Dipstick Negative Negative mg/dL CERNER MILLENNIUM Protein, Urine Dipstick Trace(A) Neg mg/dL CERNER MILLENNIUM Bilirubin, Urine Dipstick Negative Negative mg/dL CERNER MILLENNIUM Urobilinogen, Urine Dipstick Normal mg/dL CERNER MILLENNIUM pH, Urn (dipstick) 7.0 5.0 - 8.0 CERNER MILLENNIUM Blood, Urine Dipstick Negative mg/dL CERNER MILLENNIUM Ketone, Urine Dipstick Negative mg/dL CERNER MILLENNIUM Nitrite, Urine Dipstick Negative CERNER MILLENNIUM Leukocytes, Urine Dipstick Small(A) Neg CERNER MILLENNIUM Appearance, Urine Dipstick Hazy(A) Clear CERNER MILLENNIUM Specific [place] Urine Automated 1.006 1.002 - 1.030 CERNER MILLENNIUM Color, Urine Dipstick Yellow Yellow CERNER MILLENNIUM RBC, Urine Not Present 0 - 4 CERNER MILLENNIUM WBC, Urine 9(H) 0 - 5 /HPF CERNER MILLENNIUM Bacteria, Urine Many /HPF CERN ER MILLENNIUM Squamous Epithelial Cells, Urine 16(H) <=4 /HPF CERNER MILLENNIUM Transitional Epithelial Cells, Urine 1 <=1 /HPF CERNER MILLENNIUM Amorphous Crystals, Urine Occasional /HPF CERNER MILLENNIUM Urine specimen (specimen) 09/03/2012 10:53 PM EDT 09/03/2012 11:04 PM EDT Narrative Resulting Agency Comment Spec In Lab Mely Mccord MD URINE ORDERABLES CERNER MILLENNIUM * Urine culture Clean Catch Urine (09/03/2012 10:46 PM EDT) Urine Culture ? Patient Name: MELONY AMIN, ?? Ordered By: LALITA QUAN ? SORCHA E ? MR#: [id number] ?LOC: ??BP ? /Sex: ??1990 (22 years), [...] Surface Antigen (09/03/2012 8:45 PM EDT) Pathologist [facility] Hepatitis B Surface Antigen Negative Negative CERSWETA HARKINSENNIUM Blood specimen (specimen) 09/03/2012 8:45 PM EDT 09/03/2012 8:55 PM EDT Narrative Resulting Agency Comment Spec In Lab Mely Mccord MD CHEMISTRY ORDERABLES Performing Organization Address [facility]/ZIP Co de Phone Number HANNAH HARKINSENNIUM * (ABNORMAL) Differential, Automated (09/03/2012 7:45 PM EDT) Pathologist [facility] Neutrophil % 72.9(H) 34.0 - 71.0 % CERNER MILLENNIUM Neutrophil Absolute 7.25(H) 1.50 - 6.30 x10(3)/mc L CERNER MILLENNIUM Lymph % 19.3 19.0 - 53.0 % CERNER MILLENNIUM Lymphocytes Abs 1.9 1.0 - 3.6 x10(3)/mc L CERNER MILLENNIUM Monocyte % 7.2 4.0 - 13.0 % CERNER MILLENNIUM Monocyte Abs 0.7 0.2 - 1.0 x10(3)/mc L CERNER MILLENNIUM Eos % 0.5 0.0 - 7.0 % CERNER [...] differential will be performed. Immature Gran Absolute 0.00 0.00 - 0.05 x10(3)/mc L CERNER MILLENNIUM Blood specimen (specimen) 09/03/2012 7:45 PM EDT 09/03/2012 8:05 PM EDT Lalita Quan MD HEMATOLOGY ORDERAB LES Performing Organization Address City/[facility]/ZIP Co de Phone Number HANNAH POTTERIUM * Scan, Peripheral Blood (09/03/2012 7:45 PM EDT) Pathologist [facility] Plat estimate Normal CERSWETA HARKINSENNIUM RBC Morphology Abnormal CERNE R MILLENNIUM Macrocyte 1-5 /HPF CERNER MILLENNIUM Blood specimen (specimen) 09/03/2012 7:45 PM EDT 09/03/2012 8:05 PM EDT Narrative Resulting Agency Comment Spec In Lab Lalita Quan MD HEMATOLOGY ORDERAB LES HANNAH POTTERIUM * HIV Antibody Rapid Test (09/03/2012 7:45 PM EDT) HIV Ab/Ag Rapid Non-Reactive Non-React pancho CERNER TORINENNIUM Comment:Testing done by [employer] Immuno[employer]. HIV Comment Negative screening test indicates low risk of HIV exposure. Called by: RANDI_, Read back by: Lia Rogers_, Date/Time:_ 21:45. HANNAH HARKINSENNIUM Blood specimen (specimen) 09/03/2012 7:45 PM EDT 09/03/2012 9:19 PM EDT Narrative Resulting Agency Comment Spec In Lab Lalita Quan MD CHEMISTRY ORDERABL ES Performing Organization Address [facility]/ZIP Co de Phone Number HANNAH POTTERIUM * Antibody screen (09/03/2012 7:45 PM EDT) Ab Screen Interp Negative CERSWETA HARKINSENNIUM Expires at [id number] on: [id number] HANNAH HARKINSENNIUM Blood specimen (specimen) 09/03/2012 7:45 PM EDT 09/03/2012 8:08 PM EDT Narrative Resulting Agency Comment Spec In Lab Lalita Quan MD BLOOD BANK LAB ORD ERABLES Performing Organization Address [facility] Co de Phone Number HANNAH SERRANO * ABO/Rh Typing (09/03/2012 7:45 PM EDT) ABORH Type A Pos HANNAH POTTERIUM Blood specimen (specimen) 09/03/2012 7:45 PM EDT 09/03/2012 8:08 PM EDT Narrative Resulting Agency Comment Spec In Lab Lalita Quan MD BLOOD BANK LAB ORD ERABLES Performing Organization Address [facility] Co de Phone Number HANNAH SERRANO * (ABNORMAL) CBC (with Diff) (09/03/2012 7:45 PM EDT) White Blood Cell 10.0 4.0 - 10.0 x10(3)/mc L CERNER MILLENNIUM Red Blood Cell 3.48(L) 3.93 - 5.22 x10(6)/mc L CERNER MILLENNIUM Hemoglobin 11.9 11.2 - 15.7 gm/dL CERNER MILLENNIUM Hematocrit 34.0 34.0 - 45.0 % CERNER MILLENNIUM Mean Cell Volume 97.7(H) 79.0 - 94.0 fL CERNER MILLENNIUM Mean Cell Hemoglobin 34.2(H) 26.6 - 32.2 pg CERNER MILLENNIUM Mean Cell Hemoglobin Concentration 35.0 32.0 - 36.5 gm/dL CERNER MILLENNIUM Platelet 146 145 - 370 x10(3)/mc L CERNER MILLENNIUM RDW Standard Deviation 47.6(H) 35.0 - 46.0 fL CERNER MILLENNIUM RDW coefficient of variation 13.4 10.9 - 14.4 % CERNER MILLENNIUM Mean Platelet Volume 13.5(H) 9.0 - 12.0 fL CERNER MILLENNIUM Blood specimen (specimen) 09/03/2012 7:45 PM EDT 09/03/2012 8:05 PM EDT Narrative Resulting Agency Comment Spec In Lab Lalita Quan MD HEMATOLOGY ORDERAB LES [facility] * Group B Streptococcus Screen (09/03/2012 7:08 PM EDT) Pathologist [facility] GBS Screen Neg [facility] Pooled specimen from vaginal introitus and rectal swab (specimen) 09/03/2012 7:08 PM EDT 09/03/2012 7:31 PM EDT Comment:PENICILLIN ALLERGY?- >NO Narrative Resulting Agency Comment Spec In Lab Lalita Quan MD MICROBIOLOGY - GEN ERAL ORDERABLES Performing Organization Address [facility] Co de Phone Number [facility] * (ABNORMAL) Urinalysis with microscopic (09/03/2012 7:08 PM EDT) Glucose, Urine Dipstick Negative Negative mg/dL CERNER MILLENNIUM Protein, Urine Dipstick 30(A) Neg mg/dL CERNER MILLENNIUM Bilirubin, Urine Dipstick Negative Negative mg/dL CERNER MILLENNIUM Urobilinogen, Urine Dipstick 4.0(A) Normal mg/dL CERNER MILLENNIUM pH, Urn (dipstick) 6.5 5.0 - 8.0 CERNER MILLENNIUM Blood, Urine Dipstick Negative mg/dL CERNER MILLENNIUM Ketone, Urine Dipstick Negative mg/dL CERNER MILLENNIUM Nitrite, Urine Dipstick Negative CERNER MILLENNIUM Leukocytes, Urine Dipstick Moderate mcL CERNER MILLENNIUM Appearance, Urine Dipstick Hazy(A) Clear CERNER MILLENNIUM Specific [place] Urine Automated 1.019 1.002 - 1.030 CERNER MILLENNIUM Color, Urine Dipstick Yellow Yellow CERNER MILLENNIUM RBC, Urine Not Present 0 - 4 CERNER MILLENNIUM WBC, Urine 10(H) 0 - 5 /HPF CERNER MILLENNIUM Bacteria, Urine Moderate /HPF CERNER MILLENNIUM Squamous Epithelial Cells, Urine 13(H) <=4 /HPF CERNER MILLENNIUM Renal Epithelial Cells, Urine 2(H) <=0 /HPF CERNER MILLENNIUM Urine specimen (specimen) 09/03/2012 7:08 PM EDT 09/03/2012 7:58 PM EDT Narrative Resulting Agency Comment Spec In Lab Lalita Quan MD URINE ORDERABLES CERNER MILLENNIUM * (ABNORMAL) Rapid Qual Drug Screen, Urine ([facility]) (09/03/2012 7:08 PM EDT) TIFFANIE Marijuana Metabolites Screen Presumptive Pos(A) None Detected CERNER MILLENNIUM Comment: Please note that as of 04/12/2012 the testing device changed to the PROFILE-V MEDTOXScan Drugs of Abuse Test System. The marijuana metabolites screen detects the THC Metabolite (02-nqi-2-carboxy- 9-THC) ??at concentrations >50 ng/mL. Be aware [...] readings from similar or dissimilar cross-reacting drugs. Phencyclidine Screen, Urine None Detected None Detected CERNER [...] or dissimilar cross-reacting drugs. TIFFANIE Cocaine Metabolites Screen None Detected None Detected CERNER MILLENNIUM [...] readings from similar or dissimilar cross-reacting drugs. Methamphetamines Screen, Urine None Detected None Detected [...] similar or dissimilar cross-reacting drugs. TIFFANIE Opiates Screen None Detected None Detected CERNER MILLENNIUM [...] similar or dissimilar cross-reacting drugs. TIFFANIE Amphetamines Screen None Detected None Detected [...] similar or dissimilar cross-reacting drugs. TIFFANIE Benzodiazepines Screen None Detected None Detected [...] similar or dissimilar cross-reacting drugs. TIFFANIE Tricyclics Screen None Detected None Detected [...] similar or dissimilar cross-reacting drugs. TIFFANIE Methadone Screen None Detected None Detected CERNER [...] similar or dissimilar cross-reacting drugs. TIFFANIE Barbiturates Screen Presumptive Pos(A) None Detected CERNER [...] similar or dissimilar cross-reacting drugs. TIFFANIE Oxycodone Srceen None Detected None Detected [...] readings from similar or dissimilar cross-reacting drugs. Propoxyphene Screen, Urine None Detected None Detected [...] similar or dissimilar cross-reacting drugs. TIFFANIE Buprenorphine Screen None Detected None Detected [facility] Comment: Please note that as of 04/12/2012 the testing device changed to the PROFILE-V Soflowcan Drugs of Abuse Test System. The buprenorphine [...] Quan MD URINE ORDERABLES Performing Organization Address City/State/[facility] Co de Phone Number [facility] * Group B Strep Culture Screen (09/03/2012 7:08 PM EDT) Group B Streptococcus Culture ? Patient Name: [facility], ?? Ordered By: LALITA QUAN ? SORURVASHI E ? MR#: [id number] ?LOC: ??BP ? /Sex: ??1990 (22 years), ? Female ? PROCEDURE: Group B Streptococcus Culture ?SOURCE: Vag/Rectal ? COLLECTED: 09/03/2012 19:08 ?FREE TEXT SOURCE: Penicillin Allergy?->No ? STARTED: 09/03/2012 19:31 ? FINAL REPORT ? Final Report ? Verified: 013 10:07 ? No Group B Streptococci isolated ? PRELIMINARY REPORT ? Preliminary Report ? Verified: 013 13:42 ? Culture in progress ? [facility] Pooled specimen from vaginal introitus and rectal swab (specimen) 09/03/2012 7:08 PM EDT 09/03/2012 7:31 PM EDT Comment:PENICILLIN ALLERGY?- >NO Narrative Resulting Agency Comment Spec In Lab Lalita Quan MD MICROBIOLOGY - GEN [facility] ORDERABLES [facility] documented in this encounter Visit Diagnoses Diagnosis [...] PM EDT 8 mg vitamin 27 & gzrtxqo-tuxj-DG 60 mg iron-1 mg tablet Tab 1 [...] modification) on Sun09/04/12 at 2100, Until Discontinued 2099 (Given - Provider: Carmen Cisneros RN) NIFEdipine [...] Routine 194 (Due)2009 (Given - Provider: Carmen Cisneros RN) 0400 (Given - Provider: Camren Cisneros RN) vitamin 27 & xlpyslb-fgnv-BJ 60 mg iron-1 mg tablet Tab 1 tablet (CANCELED) 1 tablet, Oral, DAILY, First dose on Sun09/03/12 at 1930, Until Discontinued, Routine 193 (Not Given - Provider: Genet Chun RN - Reason: NPO) 0900 (Given - Provider: Eve Friedman, TRE) 0834 (Given - Provider: Maite Luke) sodium chloride 0.9 % flush 5 mL (CANCELED) 5 mL, Intravenous, EVERY 12 HOURS, First dose on Sun09/03/12 at 1930, Until Discontinued 193 (Given - Provider: Genet Chun RN) 0730 (Given - Provider: Eve Friedman, TRE)193 (Due) 0759 (Given - Provider: Maite Luke) Continuous Medication Order 09/03/2012 09/04/2012 09/05/2012 lactated ringers infusion 1,000 mL (CANCELED) 1,000 mL, at 100 mL/hr, Intravenous, CONTINUOUS, Starting on Sun09/03/12 at 1930, Until Sun09/05/12 at 1257 1930 (New Bag - Provider: Genet Chun RN) 0530 (New Bag - Provider: Renetta Hurt RN)1614 (Stopped - Provider: Taty Sepulveda RN) PRN Medication Order 09/03/2012 09/04/2012 09/05/2012 acetaminophen (TYLENOL) tablet 650 mg (CANCELED) 650 mg, Oral, EVERY 4 HOURS PRN, Starting on Sun09/03/12 at 1906, Until Sun09/05/12 at 1257, Pain, Headaches, mild pain, Not exceed 4 grams per 24 hours, Routine 195 (Given - Provider: Genet Chun, TRE) ondansetron (ZOFRAN) injection 4-8 mg (CANCELED) 4-8 mg, Intravenous, EVERY 8 HOURS PRN, Starting on Sun09/04/12 at 1221, Until Sun09/05/12 at 1257, Nausea, Vomiting 1236 (Given - Provider: Eve Friedman RN) zolpidem (AMBIEN) tablet 5 mg (CANCELED) 5 mg, Oral, NIGHTLY PRN, Starting on Sun09/03/12 at 1906, Until Sun09/05/12 at 1257, Sleep, Routine 230 (Given - Provider: Genet Chun RN) 2135 (Given - Provider: Carmen Cisneros RN) Linked [...] Routine documented in this encounter Care Teams Production Underwriter Relationship Specialty Start Date End Date None None PCP - General 05/08/12 04/20/14 documented as of this encounter
--- OUTSIDE RECORDS SUMMARY | 2024-01-23 17:58 | XMS_ITS | Encounter Summary ---
Author Organization [facility] [place] [address] Care Team Providers Care Ore Grader Name Role Phone None Primary Care Provider Unavailabl e Encounter Details Date Type Department Care Team (Latest Contact Info) Description 07/19/2012 10:35 AM EDT - 07/19/2012 11:59 PM EDT Hospital Encounter Ultrasound at [facility] [place] [address] Migraine, unspecified, without mention of intractable migraine [...] PM EDT Appointment Radiology at [place] [address] Walt Bay MD [facility] DR OBSTETRICS [place] [address] 01/24/2024 2:00 PM EDT Routine Obstetrics and Gynecology at [place] [address] Taty Ramos MD [facility] MATERNAL & [place] [address] 02/07/2024 9:00 AM EDT Appointment Radiology at [place] [address] Walt Bay MD [facility] DR OBSTETRICS [place] [address] 02/07/2024 10:15 AM EDT Routine Obstetrics and Gynecology at [address] Linda Diaz MD [facility] [place] [address] 03/12/2024 10:45 AM EST Office Visit Endocrinology at [address] James Barth DO [facility] [place] [address] 05/23/2024 Hospital Encounter Birthing Replaced By [facility] [place] [address] Maite Malloy MD [facility] DR OBSTET[place]ICS [place] [address] documented as of this encounter Procedures Procedure [...] Final 07/19/2012 11:21 am) Patient Info ID: ?[id number] ?: ??[birth year] (22 yrs) Name: ?PREETHI Godoy ? Visit Date: 07/19/2012 11:01 am ?LOUISE- ?FRANK Performed By Performed By: ?Ana Laura Urban Attending: ? Kandis LIMA, Latoya Figueroa Referred By: ? E MELANY BAY MD Service(s) Provided UOBTV - Viability - Cervical Length - Transvaginal - ??[id number] Indications Viability, transvaginal Evaluation Num Of Fetuses: [...] participate in the care of PREETHI Godoy NAOMIMS. Please do not hesitate to call if you have any questions. ? Latoya Marquis MD Electronically Signed Final Report ?? 07/19/2012 11:21 am Procedure Note Latoya Marquis MD - 07/19/2012 OBSTETRICS REPORT (Signed Final 07/19/2012 11:21 am) Patient Info ID: [id number] : [birth year] (22 yrs) Name: PREETHI Godoy Visit Date: 07/19/2012 11:01 am MARIO MARIE Performed By Performed By: Ana Laura Urban Attending: Latoya Marquis MD Referred By: Walt BAY MD Service(s) Provided UOBTV - Viability - Cervical Length - Transvaginal - [id number] Indications Viability, transvaginal Evaluation Num Of Fetuses: [...] high-risk documented in this encounter Care Teams Ore Grader Relationship Specialty Start Date End Date None None PCP - General 05/08/12 04/20/14 documented as of this encounter
--- OUTSIDE RECORDS SUMMARY | 2024-01-23 17:58 | XMS_ITS | Encounter Summary ---
Author Organization [facility] Address [facility] [place] [address] Care Team Providers Care Generator Operator Name Role Phone None Primary Care Provider Unavailabl e Encounter Details Date Type Department Care Team (Latest Contact Info) Description 09/15/2012 10:09 AM EDT - 09/15/2012 11:59 PM EDT Hospital [place] [phone] Griffin Allen MD [facility] PEDIATRICS/[place] [address] Discharge Disposition: Home Social History Tobacco Use [...] 01/24/2024 1:00 PM EDT Appointment Radiology at [place] [phone] Walt Bay MD [facility] DR OBSTET[place] [address] 01/24/2024 2:00 PM EDT Routine Obstetrics and Gynecology at [place] [phone] Taty Ramos MD [facility] MATERNAL & [place] [address] 02/07/2024 9:00 AM EDT [place] [address] Walt Bay MD [facility] DR OBSTETRICS [place] [address] 02/07/2024 10:15 AM EDT Routine Obstetrics [place] [phone] Linda Diaz MD [facility] [place]ERNAL [place] [address] 03/12/2024 10:45 AM EST Office [place] [address] James Barth DO [facility] ENDOCRINOLOGY DEPT [place], [place] [phone] 05/23/2024 Hospital [place] [address] Maite Malloy MD [facility] OBSTETRICS AND GYNECOLOGY [place], [place] [phone] documented as of this encounter Procedures Procedure Name Priority Date/Time Associated Diagnosis Comments SURGICAL PATHOLOGY REPORT Routine 09/15/2012 10:31 AM EDT documented in this encounter Results * Surgical Pathology Report (09/15/2012 10:31 AM EDT) Surgical Pathology Report ? [facility] ? Provider: ?? GRIFFIN ALLEN ??Pt. Name: ?? ANDREE HUMMEL ? E ? Acc #: ?[id number] ?Pt. ? Col Date: ?? 09/15/2012 ?/Sex: [...] Description: Intact discoid, locke placenta. ?Membranes: ? Mcclusky and semitransparent with 100 percent marginal ? [...] ? Clinical History: ? 31 5/7 week born at home. ??Respiratory distress, hypotonia. ? [facility] ? Provider: ?? GRIFFIN ALLEN ??Pt. Name: ?? ANDREE HUMMEL ? E ? Acc #: ?[id number] ?Pt. ? Col Date: ?? 09/15/2012 ?/Sex: ?1990,(22 years),Female ? Rec Date: ?? 09/16/2012 ?LOC: ?OPW ? SURGICAL PATHOLOGY ? Clinical Diagnosis: ? Same HANNAH SERRANO 09/15/2012 10:3 1 AM EDT Griffin Allen MD PATHOLOGY/CYTOLOGY ORDERABLES HANNAH SERRANO documented in this encounter Visit Diagnoses Not on filedocumented in this encounter Care Teams Generator Operator Relationship Specialty Start Date End Date None None PCP - General 05/08/12 04/20/14 documented as of this encounter
--- OUTSIDE RECORDS SUMMARY | 2024-01-23 17:58 | XMS_ITS | Encounter Summary ---
Author Organization [facility] Address [facility] [place] [address] Care Team Providers Care Undercutter Name Role Phone None Primary Care Provider Unavailabl e Encounter Details Date Type Department Care Team (Late st Contact Info) Description 08/03/2012 Telephone Obstetrics [place] [address] Mely Klein MD [facility] DR OBSTETRICS [place] [address] Social History Tobacco Use Types Packs/Day Years [...] she can or she may go to [facility] for initial evaluation because she lives so far away, but she will be seen today. documented in this encounter Plan of Treatment Upcoming Encounters Date Type Department Care Team (Late st Contact Info) Description 01/24/2024 1:00 PM EDT Appointment Radiology at [place] [address] Walt Bay MD [facility] DR [place] [address] 01/24/2024 2:00 PM EDT Routine Obstetrics and Gynecology at [address] Taty Ramos MD [facility] [place] [address] 02/07/2024 9:00 AM EDT [place] [address] Walt Bay MD [facility] DR [place] [address] 02/07/2024 10:15 AM EDT Routine Obstetrics and Gynecology at [address] Linda Diaz MD [facility] [place] [address] 03/12/2024 10:45 AM EST Office [place] [address] James Barth DO [facility] [place] [address] 05/23/2024 Hospital [place] [address] Maite Malloy MD [facility] [place] [address] documented as of this encounter Visit Diagnoses Not on filedocumented in this encounter Care Teams Undercutter Relationship Specialty Start Date End Date None None PCP - General 05/08/12 04/20/14 documented as of this encounter
--- OUTSIDE RECORDS SUMMARY | 2024-01-23 17:58 | XMS_ITS | Encounter Summary ---
Author Organization [facility] Address [facility] [place] [address] Care Team Providers Care Fiscal Accountant Name Role Phone None Primary Care Provider Unavailabl e Reason for Referral * Psychiatric (Routine) - Closed Specialty Diagnoses / Procedures Referred By Lamont t Referred To Contact Psychiatry Diagnoses Unspecified high-risk Lalita Carmona MD [facility] OBSTETRICS [place] [address] Yaneth Griffith MD [facility] [place] [address] Referral ID Status Reason Start Date Expiration Date V isits Requested Visits Authorized [id number] Closed Consult, Test & Treat 07/19/2012 01/15/2013 1 1 Reason for Visit * Reason Comments Routine Visit Encounter Details Date Type Department Care Team (Late st Contact Info) Description 07/19/2012 11:15 AM EDT Routine Obstetrics [place] [address] Lalita Carmona MD [facility] OBSTETRICS [place] [address] GA: 23w3d Discharge Disposition: Home Social History [...] (if applicable) along with the Guide to [place] was given to the patient. The materials were discussed and the patient was encouraged to read the information and direct questions to the provider. documented in this encounter Plan of Treatment Upcoming Encounters Date Type Department Care Team (Late st Contact Info) Description 01/24/2024 1:00 PM EDT Appointment [place] [address] Simin Bay MD [facility] DR OBSTET[place] [address] 01/24/2024 2:00 PM EDT Routine Obstetrics and Gynecology at [address] Taty Ramos MD [facility] DR MATERNAL & [place] [address] 02/07/2024 9:00 AM EDT Appointment Radiology at [address] Simin Bay MD [facility] DR OBSTETRICS [place] [address] 02/07/2024 10:15 AM EDT Routine Obstetrics and Gynecology at [address] Linda Diaz MD [facility] DR MATERNAL [place] [address] 03/12/2024 10:45 AM EST Office Visit Endocrinology at [address] James Barth DO [facility] [place] [address] 05/23/2024 Hospital Encounter Birthing [place] [phone] Maite Malloy MD [facility] OBSTETRICS [place] [address] Scheduled Referrals Name Type Priority Associated Diagnoses [...] ORDERABL ES Performing Organization Address [facility] Co de Phone Number HANNAH POTTERIUM * Hemoglobin and Hematocrit, blood (08/08/2012 9:29 AM EDT) Hemoglobin 12.2 11.2 - 15.7 gm/dL CERSWETA MILLENNIUM Hematocrit 35.4 34.0 - 45.0 % CERNER MILLENNIUM Blood specimen (specimen) 08/08/2012 9:29 AM EDT 08/08/2012 9:33 AM EDT Narrative Resulting Agency Comment Spec In Lab Lalita Carmona MD HEMATOLOGY ORDERAB LES Performing Organization Address [facility] Co de Phone Number HANNAH POTTERIUM * Glucose 1 Hour Post Prandial (08/08/2012 9:29 AM EDT) Glucose Post Prandial, 1 Hour 128 mg/dL HANNAH HARKINSENNIUM Blood specimen (specimen) 08/08/2012 9:29 AM EDT 08/08/2012 9:33 AM EDT Narrative Resulting Agency Comment Spec In Lab Lalita Carmona MD CHEMISTRY ORDERABL ES Performing Organization Address [facility] Co de Phone Number HANNAH SERRANO documented in this encounter Visit Diagnoses Diagnosis Unspecified high-risk - Primary documented in this encounter Care Teams Fiscal Accountant Relationship Specialty Start Date End Date None None PCP - General 05/08/12 04/20/14 documented as of this encounter
--- OUTSIDE RECORDS SUMMARY | 2024-01-23 17:58 | XMS_ITS | Encounter Summary ---
Author Organization [facility] [place] [address] Care Team Providers Care It Audit Manager Name Role Phone None Primary Care Provider Unavailabl e Reason for Visit * Reason Onset Date Comments Advice Only 08/08/2012 Encounter Details Date Type Department Care Team (Late st Contact Info) Description 08/08/2012 Telephone Endocrinology at [facility] [place] [phone] Omayra Meredith LPN Advice Only Social History [...] that Rx go to [facility] in [facility] documented in this encounter Plan of Treatment Upcoming Encounters Date Type Department Care Team (Late st Contact Info) Description 01/24/2024 1:00 PM EDT Appointment Radiology at [address] Walt Bay MD [facility] DR OBSTETRICS [place] [address] 01/24/2024 2:00 PM EDT Routine Obstetrics and Gynecology at [place] [phone] Taty Ramos MD [facility] DR MATERNAL & [place] [address] 02/07/2024 9:00 AM EDT Appointment Radiology at [place] [address] Walt Bay MD [facility] DR OBSTETRICS [place] [address] 02/07/2024 10:15 AM EDT Routine Obstetrics and Gynecology at [address] Linda Diaz MD [facility] [place] [address] 03/12/2024 10:45 AM EST Office Visit Endocrinology at [place] [phone] James Barth DO [facility] [place] [address] 05/23/2024 [place] [address] Maite Malloy MD [facility] DR OBSTETRICS [place] [address] documented as of this encounter Visit Diagnoses Not on filedocumented in this encounter Care Teams It Audit Manager Relationship Specialty Start Date End Date None None PCP - General 05/08/12 04/20/14 documented as of this encounter
--- OUTSIDE RECORDS SUMMARY | 2024-01-23 17:58 | XMS_ITS | Encounter Summary ---
Author Organization [facility] Address [facility] [place] [address] Care Team Providers Care Promotions Associate Name Role Phone None Primary Care Provider Unavailabl e Reason for Visit * Reason Comments Abdominal Pain abd pain and back pa in worse today Encounter Details Date Type Department Care Team (Latest Contact Info) Description 09/08/2012 3:03 PM EDT - 09/08/2012 6:56 PM EDT Hospital Encounter [place]thing [place] [address] Katelynn Lawton MD [facility] OBSTETRICS & [place] [address] Discharge Disposition: Home Social History Tobacco Use [...] Lawton MD - 09/08/2012 4:01 PM EDT [facility] Triage Visit Name: Andree Hummel MR#: [id number] Date of Visit: 09/08/2012 Time: 4:01 PM CC: back pain and pelvic pressure HPI: Andree is a 22 y.o. y with Estimated Date of Delivery: 11/12/12 at 30w5d gestation complaining of back pain. Of note, she was admitted [place] [facility] with contractions. During that admission her cervix [...] by mouth nightly. 30 tablet 2 ??? abqiblxbtb-rzwbkynjkyecs-lpeilamt (FIORICET, ESGIC) per tablet Take 1 tablet [...] Present Decelerations: occasional variable decels. Variability: Moderate [place]: contractions every 1-4 minutes irregular. Labs: Component [...] 01/24/2024 1:00 PM EDT [place] [phone] Walt Bay MD [facility] OBSTET[place] [address] 01/24/2024 2:00 PM EDT Routine Obstetrics and Gynecology at [place] [phone] Taty Ramos MD [facility] MATERNAL & [place] [address] 02/07/2024 9:00 AM EDT Appointment Radiology at [place] [address] Walt Bay MD [facility] OBSTETRICS [place] [address] 02/07/2024 10:15 AM EDT Routine Obstetrics [place] [address] Linda Diaz MD [facility] [place] [address] 03/12/2024 10:45 AM EST Office Visit Endocrinology at [place] [address] James Barth DO [facility] [place] [address] 05/23/2024 Hospital Encounter Birthing [place] [phone] Maite Malloy MD [facility] OBSTETRICS [place] [address] documented as of this encounter Procedures Procedure Name Priority Date/Time Associated Diagnosis Comments URINALYSIS WITH REFLEX CULTURE Routine 09/08/2012 4:26 PM EDT documented in this encounter Results * (ABNORMAL) Urinalysis with microscopic (09/08/2012 4:26 PM EDT) Glucose, Urine Dipstick Negative Negative mg/dL CERNER MILLENNIUM Protein, Urine Dipstick Negative mg/dL CERNER MILLENNIUM Bilirubin, Urine Dipstick Negative Negative mg/dL CERNER MILLENNIUM Urobilinogen, Urine Dipstick Normal mg/dL CERNER MILLENNIUM pH, Urn (dipstick) 7.5 5.0 - 8.0 CERNER MILLENNIUM Blood, Urine Dipstick Negative mg/dL CERNER MILLENNIUM Ketone, Urine Dipstick Negative mg/dL CERNER MILLENNIUM Nitrite, Urine Dipstick Negative CERNER MILLENNIUM Leukocytes, Urine Dipstick Negative mcL CERNER MILLENNIUM Appearance, Urine Dipstick Hazy(A) Clear CERNER MILLENNIUM Specific [place] Urine Automated 1.009 1.002 - 1.030 CERNER MILLENNIUM Color, Urine Dipstick Yellow Yellow CERNER MILLENNIUM RBC, Urine Not Present 0 - 4 CERNER MILLENNIUM WBC, Urine 4 0 - 5 /HPF CERNER MILLENNIUM Bacteria, Urine Few /HPF CERNER MILLENNIUM Squamous Epithelial Cells, Urine 2 <=4 /HPF CERNER MILLENNIUM Amorphous Crystals, Urine Occasional /HPF CERNER MILLENNIUM Urine specimen (specimen) 09/08/2012 4:26 PM EDT 09/08/2012 4:36 PM EDT Narrative Resulting Agency Comment Spec In Lab Katelynn Lawton MD URINE ORDERABLES [facility] documented in this encounter Visit Diagnoses Not on filedocumented in this encounter Care Teams Promotions Associate Relationship Specialty Start Date End Date None None PCP - General 05/08/12 04/20/14 documented as of this encounter
--- OUTSIDE RECORDS SUMMARY | 2024-01-23 17:58 | XMS_ITS | Encounter Summary ---
Author Organization [facility] Address [facility] [place] [address] Care Team Providers Care Farm Tractor Mechanic Name Role Phone None Primary Care Provider Unavailabl e Reason for Visit * Reason Comments Vaginal Pain Encounter Details Date Type Department Care Team (Latest Contact Info) Description 08/04/2012 5:07 AM EDT - 08/04/2012 11:51 AM EDT Hospital Encounter Birthing [place] [facility] [place] [address] Maite Pearce MD [facility] OBSTETRICS [place] [address] Discharge Disposition: Home Social History Tobacco Use [...] Dumas RN - 08/04/2012 11:45 AM EDT [facility] [place] [address] [facility] to contact OB doctor [phone] to contact family doctor to contact talcer Preethi Hummel [email or web address] 11:42 AM [facility] to contact OB doctor [facility] [place] [address] to contact family doctor Following your visit to [facility] Triage [facility] to contact OB doctor [facility] [place] [address] to contact family doctor [facility]: GESTATION - Less Than 37 [...] a vaginal exam in your doctor's or talcer's office you should not bleed as much [...] dehydration Keep your regularly scheduled doctor or talcer appointment NEW MEDICATIONS: SPECIAL INSTRUCTIONS/FOLLOW-UP CARE: documented [...] continuous EFM Plan discussed with Dr. Maite Pearec, Attending Physician. KATELYNN BALTAZAR MD 08/04/2012 * [...] 01/24/2024 1:00 PM EDT [place] [address] Walt Bay MD [facility] OBSTETRICS [place] [address] 01/24/2024 2:00 PM EDT Routine Obstetrics and Gynecology at [address] Taty Ramos MD [facility] DR MATERNAL & [place] [address] 02/07/2024 9:00 AM EDT Appointment Radiology at [place] [address] Walt Bay MD [facility] DR OBSTETRICS [place] [address] 02/07/2024 10:15 AM EDT Routine Obstetrics and Gynecology at [place] [phone] Linda Diaz MD [facility] [place] [address] 03/12/2024 10:45 AM EST Office Visit Endocrinology at [place] [address] James Barth DO [facility] [place] [address] 05/23/2024 Hospital Encounter Birthing [place] [phone] Maite Malloy MD [facility] DR OBSTETRICS [place] [address] documented as of this encounter Procedures Procedure Name Priority Date/Time Associated Diagnosis Comments US OB FOLLOW UP Routine 08/04/2012 11:07 AM EDT RAPID DRUG SCREEN W/O CONFIRMATION, URINE Routine 08/04/2012 9:03 AM EDT URINALYSIS DIPSTICK Routine 08/04/2012 9 :03 AM EDT URINE CULTURE Routine 08/04/2012 9:03 AM EDT FIBRONECTIN (CARIE) Routine 08/04/2012 7:10 AM EDT documented in this encounter Results * US OB follow up evaluation (08/04/2012 11:07 AM EDT) Anatomical Region Laterality Modality Pelvis, Abdomen Ultrasound 08/04/2012 11:0 7 AM EDT Narrative 08/05/2012 2:17 PM EDT ? OBSTETRICS REPORT ? (Signed Final 08/05/2012 02:16 pm) Patient Info ID: ?[id number] ?: ??[birth year] (22 yrs) Name: ?PREETHI E ? Visit Date: 08/04/2012 10:21 am ?LOUISE- ?FRANK Performed By Performed By: ?Alicia Redding RDMS Attending: ? Selina LIMA, Maite Wilson Referred By: ? KATELYNN BALTAZAR MD Service(s) Provided UOBFOL - Efw - Growth - Reevaluation - [place] ?[id number] - [id number] UOBTV - Viability - Cervical Length - Transvaginal - ??[id number] Indications 22yo with history of delivery, now [...] Final 08/05/2012 02:16 pm) Patient Info ID: [id number] : [birth year] (22 yrs) Name: PREETHI Godoy Visit Date: 08/04/2012 10:21 am MARIO MARIE Performed By Performed By: Alicia Redding RDMN Attending: Maite Pearce MD Referred By: KATELYNN BALTAZAR MD Service(s) Provided UOBFOL - Efw - Growth - Reevaluation - [place] [id number] - [id number] UOBTV - Viability - Cervical Length - Transvaginal - [id number] Indications 22yo with history of delivery, now [...] EDT) Urine Culture ? Patient Name: JOANNA ACIN, ?? Ordered By: MAITE PEARCE ? PREETHI Godoy ? MR#: [id number] ?LOC: ??BPA ? /Sex: ?? 2 (22 years), ? Female ? PROCEDURE: Urine Culture ?SOURCE: U CC ? COLLECTED: 08/04/2012 09:03 ? STARTED: 08/04/2012 09:19 ? FINAL REPORT ? Final Report ? Verified: 07:46 ? No growth (Less than 1,000 cfu/ml). ? ____ [facility] Urine specimen obtained by clean catch procedure (specimen) 08/04/2012 9:03 AM EDT 08/04/2012 9:19 AM EDT Narrative Resulting Agency Comment Spec In Lab Maite Pearce MD MICROBIOLOGY - GENER AL ORDERABLES HANNAH SERRANO * (ABNORMAL) Rapid Qual Drug Screen, Urine ([facility]) (08/04/2012 9:03 AM EDT) TIFFANIE Marijuana Metabolites Screen None Detected None Detected HANNAH HARKINSENNIUM Comment: Please note that as of 04/12/2012 the testing device changed to the PROFILE-V MEDTOXScan Drugs of Abuse Test System. The marijuana metabolites screen detects the THC Metabolite (42-ego-1-carboxy- 9-THC) ??at concentrations >50 ng/mL. Be aware [...] Phencyclidine Screen, Urine None Detected None Detected CERSWETA HARKINSENNIUM Comment: Please note that as of 04/12/2012 [...] Pearce MD URINE ORDERABLES Performing Organization Address [facility] Co de Phone Number CERNER MILLENNIUM * (ABNORMAL) Urinalysis without microscopic (08/04/2012 9:03 AM EDT) Glucose, Urine Dipstick Negative Negative mg/dL [...] Urine Dipstick Hazy(A) Clear CERNER MILLENNIUM Specific [place] Urine Automated 1.013 1.002 - 1.030 CERNER MILLENNIUM Color, Urine Dipstick Yellow Yellow CERNER MILLENNIUM Urine specimen (specimen) 08/04/2012 9:03 AM EDT 08/04/2012 9:16 AM EDT Narrative Resulting Agency Comment Spec In Lab Maite Pearce MD URINE ORDERABLES Performing Organization Address [facility] Co de Phone Number CERNER MILLENNIUM * Fibronectin (08/04/2012 7:10 AM EDT) [...] MD BODY FLUIDS AND DEBBIE MCCLENDON ORDERABLES [facility] documented in this encounter Visit Diagnoses Not on filedocumented in this encounter Care Teams Farm Tractor Mechanic Relationship Specialty Start Date End Date None None PCP - General 05/08/12 04/20/14 documented as of this encounter
--- OUTSIDE RECORDS SUMMARY | 2024-01-23 17:58 | XMS_ITS | Encounter Summary ---
Author Organization [facility] [place] [address] Care Team Providers Care Print Finisher Name Role Phone None Primary Care Provider Unavailabl e Encounter Details Date Type Department Care Team (Late st Contact Info) Description 06/12/2012 Notes Only Obstetrics [place] [address] Marita Anders, [facility] DR OBSTETRICS [place] [address] Social History Tobacco Use Types Packs/Day Years [...] EST Care Management/Social Work Referral/Contact: Referred by [facility] service for support around substance abuse/mental health. S: I'm a single, unemployed mother. O: Met with patient, Andree (pronounced Sercha), following her US appt. Patient was pleased to have US pictures of her baby, whose gender she does not wish to know. When asked why she thinks she may have been referred to [employer], patient identified that she is single and [...] stated her mother works at [employer] [facility] [facility] [place]. Patient discussed a variety of plans about where she may live. Andree expressed a desire to leave [place], [place], in order to get away from [...] Patient stated that Bryan has been in [place] since 2010, so there is no chance he is the father. She stated she is getting back together with her fiance (who will be out of [place] in July 2012), and he wants to adopt the baby. Patient asked many questions about paternity affidavit, parental rights, paternity testing, and adoption. Attempted to answer most of these, and also provided information on [employer] in [facility], and encouraged patient to seek advice of people who understand the legal implications of paternity, including power transformer repairer, court system, and DV support agencies. Explained [...] she has an upcoming appt. with an dinkey engine operator. Patient stated with this worry, plus her [...] appeared very familiar with community resources in [facility]. She stated she is involved with [employer] and [employer] already, and has food stamps and WIC. [...] with fiance, who is currently incarcerated in [place]; hx of substance abuse (opiates, cocain e, MJ, ETOH), but reduced use since learning of this (no TIFFANIE done on patient to date); hxof thyroidectomy (? of diagnosis); hx of depression, currently untreated; hx of loss in prior (per record); recent loss of job; concern for homelessness; desire to relocate (givesvarious scenarios, including living with a friend in [place], moving to [place], [place] or other location in [place] (declined list of transitional housing for women), and moving to [place] to livewith aunt and uncle). Strengths include: Some family support; good knowledge of community resources; has accessed food stamps and WIC, and plans to apply for [place] Medicaid as secondary insurance (has application); utilizes food [employer] at [facility] in [place] [facility] [place]; has stopped using opiates, per her report, [...] Restrictions option for inpatient stay. LEYDI Vicente, FRIED CAKE MAKER documented in this encounter Plan of Treatment Upcoming Encounters Date Type Department Care Team (Late st Contact Info) Description 01/24/2024 1:00 PM EDT [place] [phone] Walt Bay MD [facility] OBSTET[place]ICS [place] [address] 01/24/2024 2:00 PM EDT Routine Obstetrics [place] [phone] Taty Ramos MD [facility] MATERNAL & [place] [address] 02/07/2024 9:00 AM EDT [place] [address] Walt Bay MD [facility] OBSTETRICS [place] [address] 02/07/2024 10:15 AM EDT Routine Obstetrics and Gynecology at [place] [phone] Linda Diaz MD [facility] [place]ERNAL [place] [address] 03/12/2024 10:45 AM EST Office [place] [address] James Barth DO [facility] [place] [address] 05/23/2024 Hospital Encounter Birthing [place] [phone] Maite Malloy MD [facility] OBSTETRICS [place] [address] documented as of this encounter Visit Diagnoses Not on filedocumented in this encounter Care Teams Print Finisher Relationship Specialty Start Date End Date None None PCP - General 05/08/12 04/20/14 documented as of this encounter
--- OUTSIDE RECORDS SUMMARY | 2024-01-23 17:58 | XMS_ITS | Encounter Summary ---
Author Organization [facility] Address [facility] [place] [address] Care Team Providers Care Cosmetician Name Role Phone None Primary Care Provider Unavailabl e Encounter Details Date Type Department Care Team (Late st Contact Info) Description 07/27/2012 Telephone Obstetrics [place] [address] Al Bhatti MD [facility] DR OBSTETRICS & [place] [address] Social History Tobacco Use Types Packs/Day Years [...] PM EDT Appointment Radiology at [place] [phone] Walt Bay MD [facility] DR OBSTET[place]ICS [place] [address] 01/24/2024 2:00 PM EDT Routine Obstetrics [place] [address] Taty Ramos MD [facility] MATERNAL & [place] [address] 02/07/2024 9:00 AM EDT [place] [phone] Walt Bay MD [facility] [place]STET[place] [address] 02/07/2024 10:15 AM EDT Routine Obstetrics [place] [address] Linda Diaz MD [facility] [place] [address] 03/12/2024 10:45 AM EST Office [place] [address] James Barth DO [facility] [place] [address] 05/23/2024 Hospital [place] [phone] Maite Malloy MD [facility] [place]ST[place]ICS [place] [address] documented as of this encounter Visit Diagnoses Not on filedocumented in this encounter Care Teams Cosmetician Relationship Specialty Start Date End Date None None PCP - General 05/08/12 04/20/14 documented as of this encounter
--- OUTSIDE RECORDS SUMMARY | 2024-01-23 17:58 | XMS_ITS | Encounter Summary ---
Author Organization [facility] Address [facility] [place] [address] Care Team Providers Care Nursing Clinical Director Name Role Phone None Primary Care Provider Unavailabl e Reason for Visit * Reason Comments Routine Visit Encounter Details Date Type Department Care Team (Late st Contact Info) Description 09/12/2012 11:00 AM EDT Routine Obstetrics [place] [address] Lalita Carmona MD [facility] DR OBSTET[place]ICS [place] [address] Mely Mccord MD [facility] DR OBST[place] [address] [place]: [id number] Discharge Disposition: Home Social History [...] 01/24/2024 1:00 PM EDT Appointment Radiology at [address] Walt Bay MD [facility] OBSTETRICS [place] [address] 01/24/2024 2:00 PM EDT Routine Obstetrics and Gynecology at [place] [phone] Taty Ramos MD [facility] MATERNAL & [place] [address] 02/07/2024 9:00 AM EDT Appointment Radiology at [place] [phone] Walt Bay MD [facility] OBSTET[place] [address] 02/07/2024 10:15 AM EDT Routine Obstetrics and Gynecology at [place] [phone] Linda Diaz MD [facility] [place] [address] 03/12/2024 10:45 AM EST Office Visit Endocrinology at [place] [phone] James Barth DO [facility] [place] [address] 05/23/2024 Hospital Encounter Birthing [place] [phone] Maite Malloy MD [facility] DR OBSTET[place] [address] documented as of this encounter Visit Diagnoses Diagnosis Unspecified high-risk - Primary documented in this encounter Care Teams Nursing Clinical Director Relationship Specialty Start Date End Date None None PCP - General 05/08/12 04/20/14 documented as of this encounter
--- OUTSIDE RECORDS SUMMARY | 2024-01-23 17:59 | XMS_ITS | Encounter Summary ---
Author Organization [facility] Address [address] [place] [address] Care Team Providers Care Rail Engineer Name Role Phone Unknown, Provider Primary Care Provider [phone] Tatum Lugo MD Unavailable [phone] Encounter Details Date Type Department Care Team (Late st Contact Info) Description 11/14/2010 Results Only [facility] Laboratory Services - [facility] ([facility] [address] [place] [address] Mitesh Suarez MD [address] [place], [place] [address] Social History Tobacco Use Types Packs/Day Years [...] FRANK GIL S ? Accession #: ? [id number] ? : ? 1990 (Age: 20) ??F [...] a tam, slightly lobular cut surface. ??Two office services representative sections are submitted as (B). ? Received in formalin labelled Bimal Frank and L tonsil are two ? pieces of firm tonsil which measure 2.3 x 2.0 x 1.5 cm and 2.2 x 2.1 x 1.5 cm. ?? Both pieces have light tam, multinodular mucosal surfaces and resection margins are black inked. ??Sections reveal a light tam, slightly lobular cut surface. ? Two office services representative sections of the specimen are submitted as (C). ? Received in formalin labelled Gil, Frank and adenoids is a 1.8 x ?? 1.3 x 1.3 cm, firm, light tam, focally blood-stained, slightly lobular piece of tissue. ??Two office services representative sections of the specimen are submitted as (D). (J. ?? [facility])/[facility] ? End of Report ? [facility] 11/14/2010 11/14/2010 18: 09 EDT Mitesh Suarez MD PATHOLOGY ORDERABLES Performing Organization Address City/State/[facility] Co de Phone Number [facility] [address] [place] [address] documented in this encounter Visit Diagnoses Not on filedocumented in this encounter Care Teams Rail Engineer Relationship Specialty Start Date End Date Unknown, Provider, PCP - General 11/14/10 11/15/10 Tatum Lugo MD [address] [place] [phone] 11/14/10 09/07/13 documented as of this encounter
--- OUTSIDE RECORDS SUMMARY | 2024-01-23 17:59 | XMS_ITS | Encounter Summary ---
Author Organization [facility] [place] [address] Care Team Providers Care Piece Presser Name Role Phone None Primary Care Provider Unavailabl e Reason for Visit * Reason Comments Thyroid Nodule Encounter Details Date Type Department Care Team ([facility] st Contact Info) Description 02/23/2011 1:00 PM EST Office [place] [phone] Jona Dickinson MD [address] [place] [address] Hypothyroid (Primary Dx); Thyroid nodule Discharge Disposition: [...] the thyroid gland were obtained using a [employer] Commerceaxx and an HFL38/13-6 broadband linear array transducer. [...] ORAL) No Known Allergies SH: Lives in [facility]. Occasional smoker. Occasional alcohol. No drug [...] Dr. Dickinson. Yessy Novak MD Endocrinology Fellow [facility] Section of Endocrinology documented in this encounter Plan of Treatment Upcoming Encounters Date Type Department Care Team (Late st Contact Info) Description 01/24/2024 1:00 PM EDT Appointment Radiology at [place] [phone] Walt Bay MD [facility] OBSTETRICS [place] [address] 01/24/2024 2:00 PM EDT Routine Obstetrics and Gynecology at [place] [phone] Taty Ramos MD [facility] DR MATERNAL & [place] [address] 02/07/2024 9:00 AM EDT Appointment Radiology at [place] [phone] Walt Bay MD [facility] OBSTETRICS [place] [address] 02/07/2024 10:15 AM EDT Routine Obstetrics [place] [address] Linda Diaz MD [facility] DR [place]ERNAL [place] [address] 03/12/2024 10:45 AM EST Office Visit [place] [address] James Barth DO [facility] [place] [address] 05/23/2024 [place] [address] Maite Malloy MD [facility] DR OBSTETRICS [place] [address] documented as of this encounter Procedures Procedure Name Priority Date/Time Associated Diagnosis Comments NON-BATTERY MECHANIC FINAL REPORT Routine 02/23/2011 4:31 PM EST TSH Routine 02/23/2011 2:25 PM EST Hypothyroid CYTOPATHOLOGY NON-GYNECOLOGICAL Routine 02/23/2011 2:18 PM EST Hypothyroid Thyroid nodule documented in this encounter Results * Non-Pharmacy Technology Instructor Final Report (02/23/2011 4:31 PM EST) Non-Pharmacy Technology Instructor Final Report 00- [id number] ? Location: 5C The signing pathologist has (i) examined the relevant preparation(s) for the specimen(s) and (ii) rendered or confirmed the diagnosis(es). . ? Pathology Non-Pharmacy Technology Instructor Cytology Final Report Clinical Information Specimen Source [...] ?Screened by: ? FMQ ?Rescreened by: ?? FCL,SPA CONSULTANT 03/01/11 ?Verified by: ? MELLO LIMA, RENARD [...] reviewed at the intradepartmental multihead conference with Alonzo Stokes, Juan Ramon and Lori. HANNAH SERRANO 02/23/2011 4:31 PM EST Jona Dickinson MD PATHOLOGY/CYTOLOGY O RDERABLES HANNAH SERRANO * TSH (02/23/2011 2:25 PM EST) Thyroid Stimulating Hormone 1.62 0.27 - 4.20 mcIU/mL HANNAH TORINBRINAIUM Blood specimen (specimen) 02/23/2011 2:25 PM EST 02/23/2011 2:51 PM EST Jona Dickinson MD CHEMISTRY ORDERABLES Performing Organization Address City/[facility] Co de Phone Number [facility] * Cytopathology Non-Gynecological (02/23/2011 2:18 PM EST) AP Specimen 02/23/2011 2:18 PM EST 02/23/2011 2:18 PM EST Narrative [facility] - 02/23/2011 2:18 PM EST Specimen requisition ordered. ??Separate Pathology report to follow Jona Dickinson MD PATHOLOGY/CYTOLOGY O RDERABLES Performing Organization Address City/[facility] Co de Phone Number [facility] documented in this encounter Visit Diagnoses Diagnosis Hypothyroid- Primary Unspecified hypothyroidism Thyroid nodule Nontoxic uninodular goiter documented in this encounter Care Teams Piece Presser Relationship Specialty Start Date End Date None None PCP - General 02/23/11 05/09/11 documented as of this encounter
--- OUTSIDE RECORDS SUMMARY | 2024-01-23 17:59 | XMS_ITS | Encounter Summary ---
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 She is also surgically hypothyroid, and is follwed by Dr. Wallis here at [facility]. The plan is to keep TSH below 2.5; monthly TSH is ordered at [facility]. The patient's mother is an RN at [employer], and occasionally works float on the [...] the Estuardo antigen; it becomes expressed in certified optician. There is no risk of hemolytic disease [...] continue to have blood tests monthly in [facility]. Given Your Journal booklet, DVD on . Will need to do QUAD. 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 documented in this encounter Plan of Treatment Upcoming Encounters Date Type Department Care Team (Late st Contact Info) Description 01/24/2024 1:00 PM EDT Appointment Radiology at [place] [phone] Walt Briseno MD [facility] OBSTETRICS [place] [address] 01/24/2024 2:00 PM EDT Routine Obstetrics and Gynecology at [address] Taty Ramos MD [facility] MATERNAL & [place] [address] 02/07/2024 9:00 AM EDT Appointment Radiology at [place] [phone] Walt Briseno MD [facility] [address] OBSTET[place]ICS [place] [address] 02/07/2024 10:15 AM EDT Routine Obstetrics and Gynecology at [place] [phone] Linda Diaz MD [facility] [place] [address] 03/12/2024 10:45 AM EST Office Visit Endocrinology at [address]1000 James Barth DO [facility] [place] [address] 05/23/2024 Hospital Encounter Birthing [facility] [place] [phone] Maite Malloy MD [facility] OBSTET[place]ICS [place] [address] documented as of this encounter Results * US OB Targeted Morphology (06/12/2012 10:55 AM EST) Anatomical Region Laterality Modality Pelvis, Abdomen Ultrasound 06/12/2012 10:5 5 AM EST Narrative 06/12/2012 11:08 AM EST ?OBSTETRICS REPORT ? (Signed Final 06/12/2012 11:07 am) Patient Info ID: ? [id number] ? : ??[birth year] (21 yrs) Name: ? PREETHI Godoy ?Visit Date: 06/12/2012 10:49 am ? LOUISE- ? FRANK Performed By Performed By: ?Itzel Lezama RDMS Attending: ? Mathew LIMA, Lalita Diop Referred By: ? E MELANY BRISENO MD Service(s) Provided [facility] - Targeted Morphology - Genetics - ? [id number] UOBTV - Viability - Cervical Length - Transvaginal - ??[id number] Indications hypothyroid; possible history of 20 week [...] ?63.5 ??% FL/AC: ? 20.7 ??% ? - Est. FW: ? 299 ?? gm [...] Tract: ?Visualized L Outflow Tract: ?Visualized Cardiac [place]: ? Visualized Diaphragm: ?Visualized Abdomen Ventral Wall: [...] Final 06/12/2012 11:07 am) Patient Info ID: [id number] : [birth year] (21 yrs) Name: PREETHI Godoy Visit Date: 06/12/2012 10:49 am MARIO MARIE Performed By Performed By: Itzel Lezama RDMS Attending: Lalita Carmona MD Referred By: Walt BRISNEO MD Service(s) Provided [facility] - Targeted Morphology - Genetics - [id number] UOBTV - Viability - Cervical Length - Transvaginal - [id number] Indications hypothyroid; possible history of 20 week [...] Tract: Visualized L Outflow Tract: Visualized Cardiac [place]: Visualized Diaphragm: Visualized Abdomen Ventral Wall: Visualized [...] to participate in the care of PREETHI Walt WALLISFRANK. Please do not hesitate to call if you have any questions. Lalita Carmona MD Electronically Signed Final Report 06/12/2012 11:07 am E Melany Briseno MD [facility] ORDERAB L[facility] documented in this encounter Visit Diagnoses Diagnosis , supervision of, high-risk- Primary Unspecified high-risk , supervision of, high-risk Unspecified high-risk documented in this encounter Care Teams Bladder Trimmer Relationship Specialty Start Date End Date None None PCP - General 05/08/12 04/20/14 documented as of this encounter
--- OUTSIDE RECORDS SUMMARY | 2024-01-23 17:59 | XMS_ITS | Encounter Summary ---
Author Organization [facility] Address [address] [place] [address] Care Team Providers Care Monogram Technician Name Role Phone Unavailable Primary Care Provider Unavailabl e Encounter Details Date Type Department Care Team (Late st Contact Info) Description 05/14/2007 8:03 EST - 05/14/2007 11:59 EST Hospital Encounter [address] [address] Harsha Kingston MD [address] [place] [address] Discharge Disposition: Auto Discharge Social History Tobacco [...]
--- OUTSIDE RECORDS SUMMARY | 2024-01-23 17:59 | XMS_ITS | Encounter Summary ---
Author Organization [facility] Address [address] [place] [address] Care Team Providers Care Retail Custodial Associate Name Role Phone Tatum Lugo MD Primary Care Provider [phone] Tatum Lugo MD Unavailable [phone] Encounter Details Date Type Department Care Team (Late st Contact Info) Description 10/31/2012 Results Only [facility] - [facility] ([facility]) [address] [place] [phone] Stephanie Chavez MD [address] [place] [address] Social History Tobacco Use Types Packs/Day [...] ? ANDREE ROJAS ? Accession #: ? [id number] : ? 1990 (Age: 22) ??F ?Collect [...] MD PATHOLOGY ORDERABLES [facility] [address] [place] [address] documented in this encounter Visit Diagnoses Not on filedocumented in this encounter Care Teams Retail Custodial Associate Relationship Specialty Start Date End Date Tatum Lugo MD [address] [place] [phone] PCP - General 11/16/10 09/07/13 Tatum Lugo MD [address] [place] [phone] 11/14/10 09/07/13 documented as of this encounter
--- OUTSIDE RECORDS SUMMARY | 2024-01-23 17:59 | XMS_ITS | Encounter Summary ---
Author Organization [facility] [place] [address] Care Team Providers Care Roll Mill Operator Name Role Phone Mya Varghese MD Primary Care Provider [phone] Reason for Visit * Reason Comments Follow Up Surgery Encounter Details Date Type Department Care Team (Late st Contact Info) Description 05/10/2011 11:30 AM EST Office Visit [place] [phone] Marlo Ko MD [facility] [place] [address] Follicular adenoma of thyroid gland; Hypothyroidism, postsurgical [...] 10:33 AM EST Reason for Visit: Andree Walt HidalgoWallisSheridanTamara returns. History of Present Illness: She is [...] 01/24/2024 1:00 PM EDT Appointment [place] [address] Walt Bay MD [facility] OBSTETRICS [place] [address] 01/24/2024 2:00 PM EDT Routine Obstetrics and Gynecology at [address]1000 Taty Ramos MD [facility] DR MATERNAL & [place] [address] 02/07/2024 9:00 AM EDT Appointment Radiology at [place] [address] Walt Bay MD [facility] OBSTETRICS [place] [address] 02/07/2024 10:15 AM EDT Routine Obstetrics [place] [address] Linda Diaz MD [facility] MATERNAL [place] [address] 03/12/2024 10:45 AM EST Office Visit Endocrinology at [address] James Barth DO [facility] DR [place]IN[place] [address] 05/23/2024 Hospital Encounter Birthing [place] [phone] Maite Malloy MD [facility] OBSTETRICS [place] [address] documented as of this encounter Procedures Procedure Name Priority Date/Time Associated Diagnosis Comments TSH Routine 05/10/2011 8:03 AM EST Follicular adenoma of thyroid gland T4 TOTAL Routine 05/10/2011 8:03 AM EST Follicular adenoma of thyroid gland documented in this encounter Results * (ABNORMAL) TSH (05/10/2011 8:03 AM EST) Thyroid Stimulating Hormone 111.10(H) 0.27 - 4.20 mcIU/mL [facility] Blood specimen (specimen) 05/10/2011 8:03 AM EST 05/10/2011 8:10 AM EST Marlo Ko MD CHEMISTRY ORDERABL ES Performing Organization Address City/[facility] Co de Phone Number [facility] * (ABNORMAL) T4 (05/10/2011 8:03 AM EST) T4 Total 4.0(L) 5.1 - 10.8 mcg/dL [facility] Comment: Reference Range: Cord Blood: ??6.9-14.4 mcg/dL Females: ??7.2-14.2 mcg/dL Pediatric ranges: ??Interpret with caution-ranges have not been verified Blood specimen (specimen) 05/10/2011 8:03 AM EST 05/10/2011 8:10 AM EST Marlo Ko MD CHEMISTRY ORDERABL ES Performing Organization Address City/[facility] Co de Phone Number [facility] documented in this encounter Visit Diagnoses Diagnosis Follicular adenoma of thyroid gland Benign neoplasm of thyroid glands Hypothyroidism, postsurgical Postsurgical hypothyroidism documented in this encounter Care Teams Roll Mill Operator Relationship Specialty Start Date End Date Mya Varghese MD [address] [place] [address] PCP - General 05/10/11 05/07/12 documented as of this encounter
--- OUTSIDE RECORDS SUMMARY | 2024-01-23 17:59 | XMS_ITS | Encounter Summary ---
Author Organization [facility] Address [address] [place] [address] Care Team Providers Care Tank Farm Operator Name Role Phone None, Provider Primary Care Provider Tatmu Marcelino MD Unavailable [phone] Encounter Details Date Type Department Care Team (Late st Contact Info) Description 05/31/2021 Lab Requisition [facility] Pathology & Laboratory Medicine - [address] [address] Outr Resulting Lab, Provider Social History Tobacco [...] 85 - 499 mg/dL 06/01/2021 9:05 EST [facility] Blood VENOUS BLOOD / Unknown 05/31/2021 10:55 EST 05/31/2021 21:35 EST Provider Outr Resulting Lab CHEMISTRY & BLOOD GAS ORDERABLES [facility] [address] [place] [address] * IGG (05/31/2021 10:55 EST) IgG 738 610-1,616 mg/dL 06/01/2021 9:05 EST [facility] Blood VENOUS BLOOD / Unknown 05/31/2021 10:55 EST 05/31/2021 21:35 EST Provider Outr Resulting Lab CHEMISTRY & BLOOD GAS ORDERABLES Performing Organization Address [facility] de Phone Number [facility] [address] [place] [address] documented in this encounter Visit Diagnoses Not on filedocumented in this encounter Care Teams Tank Farm Operator Relationship Specialty Start Date End Date None, Provider PCP - General 09/08/13 Tatum Lugo MD [address] [place] [phone] 09/08/13 documented as of this encounter
--- OUTSIDE RECORDS SUMMARY | 2024-01-23 17:59 | XMS_ITS | Referral Summary ---
Author Organization [facility] Address [address] [place] [address] Care Team Providers Care Data Communications Engineer Name Role Phone None, Provider Primary Care Provider Tatum Marcelino MD Unavailable [phone] Allergies Active Allergy Reactions Criticality Noted [...] ? ANDREE ROJAS ? Accession #: ? [id number] : ? 1990 (Age: 26) ??F ?Collect Date: ? 05/21/2017 Location: ? [facility] ? Receive Date: ? 05/23/2017 Provider: ?RUSSELL VIVEROS ROUTE RETURNER-BC Copy to: ? Specimen/Source: ?Pap Test, Cervix, [...] Report Date: ??05/29/2017 10:03 End of Report [facility] 05/21/2017 05/23/2017 Russell Warner ROUTE RETURNER-BC PATHOLOGY ORDERA SAMUELS [facility] [address] [place] [address] from Last 3 Months or Most Recently Relevant to Health Maintenance Care Teams Data Communications Engineer Relationship Specialty Start Date End Date None, Provider PCP - General 09/08/13 Tatum Lugo MD [address] [place] [phone] 09/08/13
--- OUTSIDE RECORDS SUMMARY | 2024-01-23 17:59 | XMS_ITS | Encounter Summary ---
Author Organization [facility] [place] [address] Care Team Providers Care Gamma Ray Operator Name Role Phone None Primary Care Provider Unavailabl e Reason for Visit * Reason Comments Other Thyroid Nodule Encounter Details Date Type Department Care Team (Late st Contact Info) Description 03/08/2011 10:30 AM EST Office [place] [phone] Marlo Ko MD [facility] [place] [address] Thyroid nodule (Primary Dx) Discharge Disposition: Home [...] on physical exam. ROS: No H/O asthma, [place], stroke, pulmonary embolus or phlebitis. Comprehensive review [...] to Dr. Villalba. documented in this encounter Plan of Treatment Upcoming Encounters Date Type Department Care Team (Late st Contact Info) Description 01/24/2024 1:00 PM EDT Appointment Radiology at [place] [phone] Walt Bay MD [facility] DR OBSTETRICS [place] [address] 01/24/2024 2:00 PM EDT Routine Obstetrics and Gynecology at [address]1000 Taty Ramos MD [facility] MATERNAL & [place] [address] 02/07/2024 9:00 AM EDT Appointment Radiology at [place] [phone] Walt Bay MD [facility] OBSTETRICS [place] [address] 02/07/2024 10:15 AM EDT Routine Obstetrics and Gynecology at [place] [phone] Linda Diaz MD [facility] [place]NAL [place] [address] 03/12/2024 10:45 AM EST Office Visit Endocrinology at [address] James Barth DO [facility] [place] [address] 05/23/2024 Hospital Encounter Birthing [place] [address] Maite Malloy MD [facility] OBSTETRICS [place] [address] documented as of this encounter Procedures Procedure Name Priority Date/Time Associated Diagnosis Comments THYROIDECTOMY,FOR MALIGNANCY, LIMITED NECK DISSECTION Routine 03/08/2011 11:10 AM EST documented in this encounter Visit Diagnoses Diagnosis Thyroid nodule- Primary Nontoxic uninodular goiter documented in this encounter Care Teams Gamma Ray Operator Relationship Specialty Start Date End Date None None PCP - General 02/23/11 05/09/11 documented as of this encounter
--- OUTSIDE RECORDS SUMMARY | 2024-01-23 17:59 | XMS_ITS | Encounter Summary ---
Author Organization [facility] [place] [address] Care Team Providers Care [employer] Name Role Phone None Primary Care Provider Unavailabl e Encounter Details Date Type Department Care Team (Late st Contact Info) Description 03/22/2011 2:03 PM EST Anesthesia [place] [address] Anatoly Ibarra MD [address] [facility] [place] [address] Magalie Suarez [facility] DR [place] [address] Anesthesia Record Procedure Summary Procedure Name Responsible [...] and consented by patient. Plan discussed with MANAGER APPLICATION DEVELOPMENT. documented in this encounter Plan of Treatment Upcoming Encounters Date Type Department Care Team (Late st Contact Info) Description 01/24/2024 1:00 PM EDT [place] [address] Walt Bay MD [facility] OBSTETRICS [place] [address] 01/24/2024 2:00 PM EDT Routine Obstetrics [place] [phone] Taty Ramos MD [facility] MATERNAL & [place] [address] 02/07/2024 9:00 AM EDT [place] [address] Walt Bay MD [facility] DR OBSTETRICS [place] [address] 02/07/2024 10:15 AM EDT Routine Obstetrics and Gynecology at [place] [phone] Linda Diaz MD [facility] MATERNAL [place] [address] 03/12/2024 10:45 AM EST Office Visit Endocrinology at [place] [phone] James Barth DO [facility] [place] [address] 05/23/2024 Hospital Encounter Birthing [place] [phone] Maite Malloy MD [facility] DR OBSTETRICS [place] [address] documented as of this encounter Visit Diagnoses Not on filedocumented in this encounter Care Teams [employer] Relationship Specialty Start Date End Date None None PCP - General 02/23/11 05/09/11 documented as of this encounter
--- OUTSIDE RECORDS SUMMARY | 2024-01-23 17:59 | XMS_ITS | Encounter Summary ---
Author Organization [facility] Address [address] [place] [address] Care Team Providers Care Jewel Stringer Name Role Phone None, Provider Primary Care Provider Tatum Marcelino MD Unavailable [phone] Encounter Details Date Type Department Care Team (Late st Contact Info) Description 03/08/2021 Lab Requisition [facility] Pathology & Laboratory Medicine - [address] [address] Outr Resulting Lab, Provider Social History Tobacco [...] 2.8 - 5.3 pg/mL 03/08/2021 21:47 EST [facility] Blood VENOUS BLOOD / Unknown 03/08/2021 10:45 EST 03/08/2021 21:09 EST Provider Outr Resulting Lab CHEMISTRY & BLOOD GAS ORDERABLES [facility] [address] [place] [address] documented in this encounter Visit Diagnoses Not on filedocumented in this encounter Care Teams Jewel Stringer Relationship Specialty Start Date End Date None, Provider PCP - General 09/08/13 Tatum Lugo MD [address] [place] [phone] 09/08/13 documented as of this encounter
--- OUTSIDE RECORDS SUMMARY | 2024-01-23 17:59 | XMS_ITS | Encounter Summary ---
Author Organization [facility] Address [address] [place] [address] Care Team Providers Care Facilities Painter Name Role Phone Tatum Lugo MD Primary Care Provider [phone] Encounter Details Date Type Department Care Team (Late st Contact Info) Description 04/29/2007 Results Only [facility] - [address] [phone] Harsha Kingston MD [address] [place] [phone] Social History Tobacco Use Types Packs/Day Years [...] <20.0 Unit: U Performed or Referred by: [facility] Dpt of Lab Med and Path, [address] ?? , [place] [address], Lab Dir: MD [facility] III LAB 04/29/2007 10:2 3 EST 04/29/2007 10:25 EST Harsha Kingston MD IMMUNOLOGY AND SEROL OGY ORDERABLES Performing Organization Address City/[facility] Co de Phone Number [facility] [address] [place] [address] * TSH (04/29/2007 10:23 EST) TSH 1.97 0.35 - 5.00 uIU/mL [facility] 04/29/2007 10:2 3 EST 04/29/2007 10:25 EST Harsha Kingston MD CHEMISTRY & BLOOD GA S ORDERABLES Performing Organization Address City/[facility] Co de Phone Number [facility] [address] [place] [address] * (ABNORMAL) SED. RATE:ALESSANDRO (04/29/2007 10:23 EST) Sed. Rate Alessandro 34(H) 0 - 20 mm/hr [facility] 04/29/2007 10:2 3 EST 04/29/2007 10:25 EST Harsah Kingston MD HEMATOLOGY & PF4 ORD ERABLES Performing Organization Address City/[facility] Co de Phone Number [facility] [address] [place] [address] * IGA (04/29/2007 10:23 EST) IgA 66 45 - 237 mg/dl [facility] 04/29/2007 10:2 3 EST 04/29/2007 10:25 EST Harsha Kingston MD CHEMISTRY & BLOOD GA S ORDERABLES Performing Organization Address [facility] de Phone Number [facility] [address] [place] [address] * T4 FREE (04/29/2007 10:23 EST) Free T4 1.2 0.8 - 1.5 ng/dL [facility] 04/29/2007 10:2 3 EST 04/29/2007 10:25 EST Harsha Kingston MD CHEMISTRY & BLOOD GA S ORDERABLES Performing Organization Address [facility] de Phone Number [facility] [address] [place] [address] * (ABNORMAL) COMPREHENSIVE METABOLIC PANEL (04/29/2007 10:23 [...] LAB ALT 23 5 - 30 U/L [facility] Albumin 4.1 3.0 - 5.5 [...] 10:25 EST Harsha Kingston MD CHEMISTRY & BLOOD GA S ORDERABLES [facility] [address] [place] [address] * (ABNORMAL) HEMAGRAM AND DIFFERENTIAL (04/29/2007 10:23 [...] [facility] % Lymphocytes 12.8 % [facility] % Monocytes 6.5 % [...] 10:25 EST Harsha Kingston MD PACKAGES & DNA PROBE ORDERABLES Performing Organization Address City/[facility] Co de Phone Number [facility] [address] [place] [address] * HEMOGLOBIN A1C (04/29/2007 10:23 EST) Hemoglobin A1C 5.0 % [facility] Comment: Shortened red blood cell survival will decrease Hemoglobin A1C values. Reference Range: <6% Normal Range <7% Recommended goal by ADA guidelines 7-8% Suboptimal by ADA guidelines >8% Further action suggested by ADA guidelines 04/29/2007 10:2 3 EST 04/29/2007 10:25 EST Harsha Kingston MD CHEMISTRY & BLOOD GA S ORDERABLES Performing Organization Address [facility] Co de Phone Number [facility] [address] [place] [address] documented in this encounter Visit Diagnoses Not on filedocumented in this encounter Care Teams Facilities Painter Relationship Specialty Start Date End Date Tatum Lugo MD [address] [place] [phone] PCP - General 08/06/08 11/13/10 documented as of this encounter
--- OUTSIDE RECORDS SUMMARY | 2024-01-23 17:59 | XMS_ITS | Encounter Summary ---
Author Organization [facility] [place] [address] Care Team Providers Care Architecture Faculty Member Name Role Phone None Primary Care Provider Unavailabl e Reason for Visit * Reason Onset Date Comments Thyroid Problem 02/28/2011 Encounter Details Date Type Department Care Team ([facility] st Contact Info) Description 02/28/2011 [place] [phone] Jona Dickinson MD [address] [place] [address] Thyroid Problem Social History Tobacco Use Types [...] apart - needle sampling simply cannot. At [facility], this result is associated with an 18% [...] of yet. * Telephone Encounter - Jona Dicknison MD - 03/01/2011 10:30 AM EST It [...] 01/24/2024 1:00 PM [place] [address] Walt Bay MD [facility] OBSTET[place] [address] 01/24/2024 2:00 PM EDT Routine Obstetrics and Gynecology at [address] Taty Ramos MD [facility] DR MATERNAL & [place] [address] 02/07/2024 9:00 AM EDT Appointment Radiology at [place] [address] Walt Bay MD [facility] DR OBSTETRICS [place] [address] 02/07/2024 10:15 AM EDT Routine Obstetrics and Gynecology at [address] Linda Diaz MD [facility] [place] [address] 03/12/2024 10:45 AM EST Office Visit Endocrinology at [place] [address] James Barth DO [facility] [place] [address] 05/23/2024 Hospital Encounter Birthing [place] [phone] Maite Malloy MD [facility] DR OBSTETRICS [place] [address] documented as of this encounter Visit Diagnoses Not on filedocumented in this encounter Care Teams Architecture Faculty Member Relationship Specialty Start Date End Date None None PCP - General 02/23/11 05/09/11 documented as of this encounter
--- OUTSIDE RECORDS SUMMARY | 2024-01-23 17:59 | XMS_ITS | Encounter Summary ---
Author Organization [facility] Address [facility] [place] [address] Care Team Providers Care Farmer Vegetable Name Role Phone None Primary Care Provider Unavailabl e Encounter Details Date Type Department Care Team (Latest Contact Info) Description 05/08/2012 10:30 AM EST Office [place] [address] Griffin Wallis III, MD [facility] [place] [address] Hypothyroidism (Primary Dx) Discharge Disposition: Home Social [...] of 1.35 with (-) TSI (done at [facility]). She has no symptoms of hypothyroidism now. [...] standing order for monthly TSH levels at [facility], with results to be FAXed to me at [phone]. Lastly, she wanted mt to be sure that Dr. Maite Marks is aware that the local Gaming Manager requeststhat her care be transferred to Dr. Marks. More than 32 of this 60 minute visit was spent in face to face counseling and discussing the implications of the diagnosis and potential therapeutic approaches as detailed above. documented in this encounter Plan of Treatment Upcoming Encounters Date Type Department Care Team (Late st Contact Info) Description 01/24/2024 1:00 PM EDT [place] [address] Walt Bay MD [facility] DR OBSTETRICS [place] [address] 01/24/2024 2:00 PM EDT Routine Obstetrics and Gynecology at [address]1000 Taty Ramos MD [facility] MATERNAL & [place] [address] 02/07/2024 9:00 AM EDT Appointment Radiology at [place] [phone] Walt Bay MD [facility] OBSTETRICS [place] [address] 02/07/2024 10:15 AM EDT Routine Obstetrics and Gynecology at [place] [phone] Linda Diaz MD [facility] DR MATERNAL [place] [address] 03/12/2024 10:45 AM EST Office [place] [address] James Barth DO [facility] [place] [address] 05/23/2024 Hospital [place] [address] Maite Malloy MD [facility] OBSTETRICS [place] [address] documented as of this encounter Visit Diagnoses Diagnosis Hypothyroidism- Primary Unspecified hypothyroidism documented in this encounter Care Teams Farmer Vegetable Relationship Specialty Start Date End Date None None PCP - General 05/08/12 04/20/14 documented as of this encounter
--- OUTSIDE RECORDS SUMMARY | 2024-01-23 17:59 | XMS_ITS | Encounter Summary ---
Author Organization [facility]ly [facility] [place] [address] Care Team Providers Care Electromagnet Crane Operator Name Role Phone None Primary Care Provider Unavailabl e Encounter Details Date Type Department Care Team (Late st Contact Info) Description 06/12/2012 10:45 AM EST Routine Obstetrics [place] [address] CLINIC, Lalita Bond MD [facility] DR OBSTETRICS [place] [address] GA: [id number] Discharge Disposition: Home Social History [...] PM EDT Appointment Radiology at [place] [phone] Walt Bay MD [facility] DR OBSTETRICS [place] [address] 01/24/2024 2:00 PM EDT Routine Obstetrics and Gynecology at [place] [phone] Taty Ramos MD [facility] DR MATERNAL & [place] [address] 02/07/2024 9:00 AM EDT [place] [address] Walt Bay MD [facility] DR OBSTETRICS [place] [address] 02/07/2024 10:15 AM EDT Routine Obstetrics [place] [address] Linda Diaz MD [facility] [place] [address] 03/12/2024 10:45 AM EST Office [place] [phone] James Barth, [facility] [place] [address] 05/23/2024 Hospital Encounter [place] [address] Maite Malloy MD [facility] OBSTETRICS [place] [address] documented as of this encounter Results * US OB transvaginal (07/04/2012 3:08 PM EDT) Anatomical Region Laterality Modality Pelvis, Abdomen Ultrasound 07/04/2012 3:08 PM EDT Narrative 07/04/2012 3:20 PM EDT ?OBSTETRICS REPORT ? (Signed Final 07/04/2012 03:20 pm) Patient Info ID: ? [id number] ? : ??[birth year] (22 yrs) Name: ? PREETHI Godoy ?Visit Date: 07/04/2012 03:03 pm ? LOUISE- ? FRANK Performed By Performed By: ?Itzel Lezama RDMS Attending: ? Anca LIMA, Phylicia Reyes Referred By: ? LALITA QUAN MD Service(s) Provided UOBTV - Viability - Cervical Length - Transvaginal - ??[id number] Indications cervical length Evaluation Num Of Fetuses: [...] Final 07/04/2012 03:20 pm) Patient Info ID: [id number] : [birth year] (22 yrs) Name: PREETHI Godoy Visit Date: 07/04/2012 03:03 pm MARIO NUÑEZWILLIAMS Performed By Performed By: Itzel Lezama RDMS Attending: Phylicia March MD. Referred By: LALITA QUAN MD Service(s) Provided UOBTV - Viability - Cervical Length - Transvaginal - [id number] Indications cervical length Evaluation Num Of Fetuses: [...] participate in the care of PREETHI Godoy WALLISFRANK. Please do not hesitate to call [...] of documented in this encounter Care Teams Electromagnet Crane Operator Relationship Specialty Start Date End Date None None PCP - General 05/08/12 04/20/14 documented as of this encounter
--- OUTSIDE RECORDS SUMMARY | 2024-01-23 17:59 | XMS_ITS | Encounter Summary ---
Author Organization [facility] Address [facility] [place] [address] Care Team Providers Care Industrial Engineering Manager Name Role Phone None Primary Care Provider Unavailabl e Encounter Details Date Type Department Care Team (Late st Contact Info) Description 03/23/2011 Orders [place] [phone] Chloé Santa RN Social History Tobacco Use [...] 01/24/2024 1:00 PM ED[place] [address] Walt Bay MD [facility] DR OBSTETRICS [place] [address] 01/24/2024 2:00 PM EDT Routine Obstetrics [place] [address] Taty Ramos MD [facility] MATERNAL & [place] [address] 02/07/2024 9:00 AM EDT Appointment Radiology at [address]1000 Walt Bay MD [facility] OBSTETRICS [place] [address] 02/07/2024 10:15 AM EDT Routine Obstetrics [place] [address] Linda Diaz MD [facility] MATERNAL [place] [address] 03/12/2024 10:45 AM EST Office Visit Endocrinology at [place] [phone] James Barth DO [facility] [place] [address] 05/23/2024 Hospital [place] [address] Maite Malloy MD [facility] OBSTETRICS [place] [address] documented as of this encounter Visit Diagnoses Not on filedocumented in this encounter Care Teams Industrial Engineering Manager Relationship Specialty Start Date End Date None None PCP - General 02/23/11 05/09/11 documented as of this encounter
--- OUTSIDE RECORDS SUMMARY | 2024-01-23 17:59 | XMS_ITS | Encounter Summary ---
Author Organization [facility] Address [address] [place] [address] Care Team Providers Care Osteopathic Medicine Teacher Name Role Phone Unavailable Primary Care Provider Unavailabl e Encounter Details Date Type Department Care Team (Late st Contact Info) Description 05/24/2007 11:52 [facility] Hospital Encounter [address] [address] Harsha Kingston MD [address] [place] [phone] Social History Tobacco Use Types Packs/Day Years [...]
--- OUTSIDE RECORDS SUMMARY | 2024-01-23 17:59 | XMS_ITS | Encounter Summary ---
Author Organization [facility] Address [address] [place] [address] Care Team Providers Care Merchandise Clerk Name Role Phone None, Provider Primary Care Provider Tatum Marcelino MD Unavailable [phone] Encounter Details Date Type Department Care Team (Late st Contact Info) Description 01/30/2020 Lab Requisition [facility] Pathology & Laboratory Medicine - [address] [address] Outr Resulting Lab, Provider Social History Tobacco [...] on filedocumented in this encounter Care Teams Merchandise Clerk Relationship Specialty Start Date End Date None, Provider PCP - General 09/08/13 Tatum Lugo MD [address] [place] [phone] 09/08/13 documented as of this encounter
--- OUTSIDE RECORDS SUMMARY | 2024-01-23 17:59 | XMS_ITS | Encounter Summary ---
Author Organization [facility] [place] [address] Care Team Providers Care Polymerization Oven Operator Name Role Phone None Primary Care Provider Unavailabl e Encounter Details Date Type Department Care Team (Late st Contact Info) Description 03/22/2011 2:28 PM EST - 03/22/2011 4:56 PM EST Surgery [place] [address] Juan Ko MD [facility] [place] [address] THYROIDECTOMY, FOR MALIGNANCY, LIMITED NECK DISSECTION (WRVU [...] calcium supplementation (tums) Phone number for questions: [phone] before 5 PM weekdays [phone] after 5 PM and on weekends/holidays documented [...] the thyroid gland were obtained using a SonoSiShipsteraxx and an HFL38/13-6 broadband linear array transducer. [...] on physical exam. ROS: No H/O asthma, IA, stroke, pulmonary embolus or phlebitis. Comprehensive review [...] agrees to proceed. Will sign in through [facility]. Consent is signed. Send copy to Dr. Villalba. documented in this encounter Miscellaneous Notes * Miscellaneous - Provider, Scanning - 03/22/2011 9:20 PM EST * Op Note - Satinder Duncan MD - 03/22/2011 5:12 PM EST [facility] Operative Note Patient Name: Andree Hummel : [id number] MR#: [id number] Case Date: 03/22/2011 Surgeon: Surgeon(s) and Role: [...] Operative Note Patient Name: Andree Hummel : [id number] MR#: [id number] Case Date: 03/22/2011 Surgeon: Surgeon(s) and Role: [...] 01/24/2024 1:00 PM EDT Appointment Radiology at [place] [address] Simin Bay MD [facility] DR OBSTETRICS [place] [address] 01/24/2024 2:00 PM EDT Routine Obstetrics and Gynecology at [address]1000 Taty Ramos MD [facility] MATERNAL & [place] [address] 02/07/2024 9:00 AM EDT Appointment Radiology at [address]1000 Simin Bay MD [facility] DR OBSTETRICS [place] [address] 02/07/2024 10:15 AM EDT Routine Obstetrics and Gynecology at [place] [phone] Linda Diaz MD [facility] [place] [address] 03/12/2024 10:45 AM EST Office [place] [address] James Barth DO [facility] [place] [address] 05/23/2024 Hospital Encounter [place] [address] Maite Malloy MD [facility] DR OBSTETRICS [place] [address] documented as of this encounter Procedures Procedure [...] 5:13 PM EST) Surgical Pathology Report [id number] ? Location: [facility] The signing pathologist has (i) examined [...] superior to inferior including enlarged parathyroid; (41-44) maintenance representative sections of isthmus; (45-50) serial sections [...] to the text of this report. Killian Maicoldemetri, 03/31/11 10:47 CERNER MILLENNIUM 03/22/2011 5:13 PM EST Juan Ko MD PATHOLOGY/CYTOLOGY ORDERABLES [facility] * Specimen to Pathology (surgical or derm) (03/22/2011 4:33 PM EST) AP Specimen 03/22/2011 4:33 PM EST 03/22/2011 4:33 PM EST Narrative [facility] - 03/22/2011 4:33 PM EST Specimen requisition ordered. ??Separate Pathology report to follow Luis Hester MD PATHOLOGY/CYTOLOGY ORDERABLES [facility] documented in this encounter Visit Diagnoses Not on filedocumented in this encounter Administered Medications Inactive Administered Medications - up to 3 most recent administrations Medication Order MAR Action Action Date Dose Rate Site BUpivacaine-epiNEPHrine 0.25 %-1:200,000 injection ONCE PRN, Starting on Sun03/22/11 at 1456, Until Sun03/22/11 at 2137, Intra-Operative (Intra-Procedure), Routine Given 03/22/2011 2:56 PM EST 22.5 mg cellulose, oxidized (SURGICEL) 4 x 8 pad ONCE PRN, Starting on Sun03/22/11 at 1635, Until Sun03/22/11 at 2138, Intra-Operative (Intra-Procedure), Routine Given 03/22/2011 4:35 PM [...] on Sun03/22/11 at 1345, Until Sun03/22/11 at 213, Day of Surgery [...] Routine 1748 (Given - Provid er: Bhumika Hurtado RN) [...] Patch documented in this encounter Care Teams Polymerization Oven Operator Relationship Specialty Start Date End Date None None PCP - General 02/23/11 05/09/11 documented as of this encounter
--- OUTSIDE RECORDS SUMMARY | 2024-01-23 17:59 | XMS_ITS | Encounter Summary ---
Author Organization [facility] [place] [address] Care Team Providers Care Vascular Ultrasound Technician Name Role Phone None Primary Care Provider Unavailabl e Reason for Visit * Reason Comments Thyroid Nodule Encounter Details Date Type Department Care Team ([facility] st Contact Info) Description 03/15/2011 11:10 AM EST Office [place] [phone] Jona Dickinson MD [address] [place] [address] Thyroid nodule (Primary Dx) Discharge Disposition: Home [...] of the neck were obtained using a SonRhapsodyaxx and an HFL38/13-6 broadband linear array transducer. [...] 01/24/2024 1:00 PM EDT [place] [address] Walt Bay MD [facility] DR OBSTETRICS [place] [address] 01/24/2024 2:00 PM EDT Routine Obstetrics [place] [address] Taty Ramos MD [facility] MATERNAL & [place] [address] 02/07/2024 9:00 AM EDT Appointment [place] [address] Walt Bay MD [facility] DR OBSTETRICS [place] [address] 02/07/2024 10:15 AM EDT Routine Obstetrics and Gynecology at [address]1000 Linda Diaz MD [facility] MATERNAL [place] [address] 03/12/2024 10:45 AM EST Office [place] [address] James Barth DO [facility] ENDOCRINOLOGY [place] [address] 05/23/2024 Hospital Encounter Birthing [place] [phone] Maite Malloy MD [facility] OBSTETRICS AND [place] [address] documented as of this encounter Visit Diagnoses Diagnosis Thyroid nodule- Primary Nontoxic uninodular goiter documented in this encounter Care Teams Vascular Ultrasound Technician Relationship Specialty Start Date End Date None None PCP - General 02/23/11 05/09/11 documented as of this encounter
--- OUTSIDE RECORDS SUMMARY | 2024-01-23 17:59 | XMS_ITS | Encounter Summary ---
Author Organization [facility] Address [facility] [place] [address] Care Team Providers Care Bottle Washer Name Role Phone None Primary Care Provider Unavailabl e Encounter Details Date Type Department Care Team (Late st Contact Info) Description 03/23/2011 Orders Only [place] [phone] Chloé Sanat RN Social History Tobacco Use Types Packs/Day [...] 01/24/2024 1:00 PM EDT Appointment [place] [address] Walt Bay MD [facility] DR OBSTETRICS [place] [address] 01/24/2024 2:00 PM EDT Routine Obstetrics [place] [address] Taty Ramos MD [facility] MATERNAL [place] [address] 02/07/2024 9:00 AM EDT Appointment Radiology at [address]1000 Walt Bay MD [facility] OBSTETRICS [place] [address] 02/07/2024 10:15 AM EDT Routine [place]etrics [place] [address] Linda Diaz MD [facility] MATERNAL [place] [address] 03/12/2024 10:45 AM EST Office Visit Endocrinology at [place] [phone] James Barth DO [facility] [place] [address] 05/23/2024 Hospital [place] [address] Maite Malloy MD [facility] OBSTETRICS [place] [address] documented as of this encounter Visit Diagnoses Not on filedocumented in this encounter Care Teams Bottle Washer Relationship Specialty Start Date End Date None None PCP - General 02/23/11 05/09/11 documented as of this encounter
--- OUTSIDE RECORDS SUMMARY | 2024-01-23 17:59 | XMS_ITS | Encounter Summary ---
Author Organization [facility] [place] [address] Care Team Providers Care Threading Machine Setter Name Role Phone None Primary Care Provider Unavailabl e Reason for Visit * Reason Onset Date Comments Medication Refill 06/04/2012 Encounter Details Date Type Department Care Team (Late st Contact Info) Description 06/04/2012 Refill [place] [address] Griffin Wallis III, MD [facility] DR ENDOCRIN[place] [address] Hypothyroidism (Primary Dx) Social History Tobacco Use [...] 01/24/2024 1:00 PM EDT Appointment [place] [address] Walt Bay MD [facility] OBSTETRICS [place] [address] 01/24/2024 2:00 PM EDT Routine Obstetrics and Gynecology at [address]1000 Taty Ramos MD [facility] MATERNAL & [place] [address] 02/07/2024 9:00 AM EDT Appointment Radiology at [place] [address] Walt Bay MD [facility] OBSTETRICS [place] [address] 02/07/2024 10:15 AM EDT Routine Obstetrics [place] [address] Linda Diaz MD [facility] [place]NAL [place] [address] 03/12/2024 10:45 AM EST Office Visit Endocrinology at [place] [address] James Barth DO [facility] [place] [address] 05/23/2024 Hospital Encounter [place]thing [place] [phone] Maite Malloy MD [facility] OBSTETRICS [place] [address] documented as of this encounter Visit Diagnoses Diagnosis Hypothyroidism- Primary Unspecified hypothyroidism documented in this encounter Care Teams Threading Machine Setter Relationship Specialty Start Date End Date None None PCP - General 05/08/12 04/20/14 documented as of this encounter
--- OUTSIDE RECORDS SUMMARY | 2024-01-23 17:59 | XMS_ITS | Encounter Summary ---
Author Organization [facility] Address [facility] [place] [address] Care Team Providers Care Greens Or Grounds Superintendent Name Role Phone None Primary Care Provider Unavailabl e Reason for Referral * Surgical (Routine) - Closed Specialty Diagnoses / Procedures Referred By Lamont riggins Referred To Contact General Surgery Diagnoses Thyroid nodule Jona Dickinson MD [address] [place] [address] Marlo Ko MD [facility] [place] [address] Referral ID Status Reason Start Date Expiration Date V isits Requested Visits Authorized [id number] Closed Specialty Service Requested 03/03/2011 08/30/2011 1 1 Reason for Visit * Reason Onset Date Comments Other 03/03/2011 ? when surgery i s scheduled Encounter Details Date Type Department Care Team (Late st Contact Info) Description 03/03/2011 Telephone [place] [address] Jona Dickinson MD [address] [place] [address] Other (? when surgery is scheduled) Social [...] 01/24/2024 1:00 PM EDT Appointment Radiology at [place] [phone] Walt Bay MD [facility] DR OBSTET[place] [address] 01/24/2024 2:00 PM EDT Routine Obstetrics and Gynecology at [place] [phone] Taty Ramos MD [facility] [address] MATERNAL & [place] [address] 02/07/2024 9:00 AM EDT Appointment [place] [address] Walt Bay MD [facility] DR OBSTET[place]ICS [place] [address] 02/07/2024 10:15 AM EDT Routine Obstetrics [place] [address] Linda Diaz MD [facility] [place] [address] 03/12/2024 10:45 AM EST Office Visit [place] [address] James Barth DO [facility] [place] [address] 05/23/2024 Hospital [place] [phone] Maite Malloy MD [facility] OBSTETRICS [place] [address] Scheduled Referrals Name Type Priority Associated Diagnoses Orde r Schedule REFERRAL TO GENERAL SURGERY Outpatient Referral Routine Thyroid nodule Ordered: 03/03/2011 documented as of this encounter Visit Diagnoses Diagnosis Thyroid nodule- Primary Nontoxic uninodular goiter documented in this encounter Care Teams Greens Or Grounds Superintendent Relationship Specialty Start Date End Date None None PCP - General 02/23/11 05/09/11 documented as of this encounter
--- OUTSIDE RECORDS SUMMARY | 2024-01-23 17:59 | XMS_ITS | Encounter Summary ---
Author Organization [facility] [place] [address] Care Team Providers Care Roller Operator Name Role Phone None Primary Care Provider Unavailabl e Reason for Visit * Reason Onset Date Comments Medication Refill 05/23/2012 Encounter Details Date Type Department Care Team (Late st Contact Info) Description 05/23/2012 [place] [phone] Griffin Wallis III, MD [facility] [place] [address] Hypothyroidism (Primary Dx) Social History Tobacco Use [...] 01/24/2024 1:00 PM ED[place] [address] Walt Bay MD [facility] OBSTETRICS [place] [address] 01/24/2024 2:00 PM EDT Routine Obstetrics and Gynecology at [address]1000 Taty Ramos MD [facility] MATERNAL & [place] [address] 02/07/2024 9:00 AM EDT Appointment Radiology at [place] [address] Walt Bay MD [facility] OBSTETRICS [place] [address] 02/07/2024 10:15 AM EDT Routine Obstetrics [place] [address] Linda Diaz MD [facility] [place] [address] 03/12/2024 10:45 AM EST Office Visit Endocrinology at [place] [address] James Barth DO [facility] [place] [address] 05/23/2024 Hospital Encounter [place]thing [place] [phone] Maite Malloy MD [facility] OBSTETRICS [place] [address] documented as of this encounter Visit Diagnoses Diagnosis Hypothyroidism- Primary Unspecified hypothyroidism documented in this encounter Care Teams Roller Operator Relationship Specialty Start Date End Date None None PCP - General 05/08/12 04/20/14 documented as of this encounter
--- OUTSIDE RECORDS SUMMARY | 2024-01-23 17:59 | XMS_ITS | Encounter Summary ---
Author Organization [facility] Address [address] [place] [address] Care Team Providers Care Carpenter Helper Name Role Phone None, Provider Primary Care Provider Tatum Marcelino MD Unavailable [phone] Encounter Details Date Type Department Care Team (Late st Contact Info) Description 05/21/2017 Results Only [facility] [phone] Russell Warner, [address] [address] Social History Tobacco Use Types Packs/Day Years [...] ? ANDREE ROJAS ? Accession #: ? [id number] : ? 1990 (Age: 26) ??F ?Collect Date: ? 05/21/2017 Location: ? [facility] ? Receive Date: ? 05/23/2017 Provider: ?RUSSELL VIVEROS GLEASON GEAR GENERATOR-BC Copy to: ? Specimen/Source: ?Pap Test, Cervix, [...] Report Date: ??05/29/2017 10:03 End of Report [facility] 05/21/2017 05/23/2017 Russell Warner GLEASON GEAR GENERATOR-BC PATHOLOGY ORDERA BLES [facility] [address] [place] [address] documented in this encounter Visit Diagnoses Not on filedocumented in this encounter Care Teams Carpenter Helper Relationship Specialty Start Date End Date None, Provider PCP - General 09/08/13 Tatum Lugo MD [address] [place] [phone] 09/08/13 documented as of this encounter
--- OUTSIDE RECORDS SUMMARY | 2024-01-23 17:59 | XMS_ITS | Encounter Summary ---
Author Organization [facility] [place] [address] Care Team Providers Care Cargo Surveyor Name Role Phone None Primary Care Provider Unavailabl e Encounter Details Date Type Department Care Team (Latest Contact Info) Description 03/22/2011 12:09 PM EST - 03/22/2011 7:14 PM EST Hospital Encounter [place] [address] Juan Ko MD [facility] [place] [address] Discharge Disposition: Home Social History Tobacco Use [...] calcium supplementation (tums) Phone number for questions: [phone] before 5 PM weekdays [phone] after 5 PM and on weekends/holidays documented [...] to proceed. Will sign in through [facility]. Consent is signed. Send copy to Dr. Villalba. documented in this encounter Miscellaneous Notes * Miscellaneous - Provider, Scanning - 03/22/2011 9:20 PM EST * Op Note - Satinder Duncan MD - 03/22/2011 5:12 PM EST [facility] Operative Note Patient Name: Andree Hummel : [id number] MR#: [id number] Case Date: 03/22/2011 Surgeon: Surgeon(s) and Role: [...] the thyroid gland were obtained using a Sonmobileoaxx and an HFL38/13-6 broadband linear array transducer. [...] Operative Note Patient Name: Andree Hummel : [id number] MR#: [id number] Case Date: 03/22/2011 Surgeon: Surgeon(s) and Role: [...] 1:00 PM EDT Appointment Radiology at [address]1000 Walt Bay MD [facility] OBSTETRICS [place] [address] 01/24/2024 2:00 PM EDT Routine Obstetrics and Gynecology at [address]1000 Taty Ramos MD [facility] MATERNAL & [place] [address] 02/07/2024 9:00 AM EDT Appointment Radiology at [place] [phone] Walt Bay MD [facility] DR OBSTETRICS [place] [address] 02/07/2024 10:15 AM EDT Routine Obstetrics [place] [address] Linda Diaz MD [facility] [place] [address] 03/12/2024 10:45 AM EST Office Visit Endocrinology at [place] [phone] James Barth DO [facility] [place] [address] 05/23/2024 Hospital Encounter Birthing [place] [phone] Maite Malloy MD [facility] OBSTET[place]ICS [place] [address] documented as of this encounter Procedures Procedure [...] Surgical Pathology Report (03/22/2011 5:13 PM EST) Pathologist [facility] Surgical Pathology Report [id number] ? Location: [facility] The [...] superior to inferior including enlarged parathyroid; (41-44) traffic representative sections of isthmus; (45-50) serial sections [...] CR-0 03/28/11 LJT 03/31/11 Verified by: ? Tafe MD, Yessy Guzman ?Pathologist ?(Electronic Signature) The attending pathologist whose signature appears on this report has reviewed all diagnostic slides and has edited the gross and/or microscopic portion of the report in rendering the final pathologic diagnosis. . Comment Correction Note: ??The responsible physician is changed. ??There are NO other changes to the text of this report. Killian Abel, 03/31/11 10:47 CERNER MILLENNIUM 03/22/2011 5:13 PM EST Juan Ko MD PATHOLOGY/CYTOLOGY ORDERABLES [facility] * Specimen to Pathology (surgical or derm) (03/22/2011 4:33 PM EST) AP Specimen 03/22/2011 4:33 PM EST 03/22/2011 4:33 PM EST Narrative CERNER MILLENNIUM - 03/22/2011 4:33 PM EST Specimen requisition ordered. ??Separate Pathology report to follow Luis eHster MD PATHOLOGY/CYTOLOGY ORDERABLES [facility] documented in this encounter Visit Diagnoses [...] Bhumika Hurtado RN)172 (Given - Provider: Bhumika Hurtado RN)1745 (Given - Provider: Bhumika Hurtado RN) hydroCODone-acetaminophen (VICODIN) 5-500 mg per tablet 1-2 tablet 1-2 tablet, Oral, EVERY 6 HOURS PRN, Starting on Sun03/22/11 at 1714, Until Sun03/22/11 at 2138, Pain, Maximum dose of acetaminophen is 4000 mg from all sources in 24 hours., Routine 174 (Given - Provid er: Bhumika Hurtado RN) [...] Patch documented in this encounter Care Teams Cargo Surveyor Relationship Specialty Start Date End Date None None PCP - General 02/23/11 05/09/11 documented as of this encounter
--- OUTSIDE RECORDS SUMMARY | 2024-01-23 17:59 | XMS_ITS | Encounter Summary ---
Author Organization [facility] [place] [address] Care Team Providers Care Electric Lineman Name Role Phone None Primary Care Provider Unavailabl e Reason for Visit * Reason Onset Date Comments Results 06/04/2012 Encounter Details Date Type Department Care Team (Late st Contact Info) Description 06/04/2012 Telephone Endocrinology at [facility] [place] [phone] Omayra Meredith LPN Results Social History Tobacco [...] LPN - 06/04/2012 4:04 PM EST Andree uHmmel - 11:46 AM ','<More Detail >> Griffin [...] Rx is needed Rx to go to [facility] +++++++++++++++++++ Well, let's add 50 mcg [...] Rx is needed Rx to go to [facility] documented in this encounter Plan of Treatment Upcoming Encounters Date Type Department Care Team (Late st Contact Info) Description 01/24/2024 1:00 PM EDT Appointment Radiology at [place] [phone] Walt Bay MD [facility] OBSTETRICS [place] [address] 01/24/2024 2:00 PM EDT Routine Obstetrics [place] [phone] Taty Ramos MD [facility] MATERNAL & [place] [address] 02/07/2024 9:00 AM EDT Appointment Radiology at [place] [phone] Walt Bay MD [facility] OBSTETRICS [place] [address] 02/07/2024 10:15 AM EDT Routine Obstetrics and Gynecology at [place] [phone] Linda Diaz MD [facility] [place]NAL [place] [address] 03/12/2024 10:45 AM EST Office Visit Endocrinology at [place] [phone] James Barth DO [facility] [place] [address] 05/23/2024 Hospital [place] [address] Maite Malloy MD [facility] DR OBSTETRICS [place] [address] documented as of this encounter Visit Diagnoses Not on filedocumented in this encounter Care Teams Electric Lineman Relationship Specialty Start Date End Date None None PCP - General 05/08/12 04/20/14 documented as of this encounter
--- OUTSIDE RECORDS SUMMARY | 2024-01-23 17:59 | XMS_ITS | Encounter Summary ---
Author Organization [facility] Address [address] [place] [address] Care Team Providers Care Research Engineer Name Role Phone None, Provider Primary Care Provider Tatum Marcelino MD Unavailable [phone] Encounter Details Date Type Department Care Team ([facility] st Contact Info) Description 10/09/2013 Results Only [facility] [phone] Jose Enrique Pacheco MD [address] [place] [phone] Social History Tobacco Use Types Packs/Day Years [...] Chlamydia Result CHLAMYDIA TRACHOMATIS DNA detected by development technologist mediated amplification.(A ) [facility] GC Result No Neisseria gonorrhoeae DNA detected by development technologist mediated amplification. [facility] 10/09/2013 12:4 5 EDT 10/09/2013 15:02 EDT Jose Enrique Pacheco MD MICROBIOLOGY - GENER AL ORDERABLES Performing Organization Address City/[facility] Co de Phone Number [facility] [address] [place] [address] * VAGINITIS EXAM (10/09/2013 12:45 EDT) Specimen [...] - GENER AL ORDERABLES Performing Organization Address [facility] de Phone Number [facility] [address] [place] [address] documented in this encounter Visit Diagnoses Not on filedocumented in this encounter Care Teams Research Engineer Relationship Specialty Start Date End Date None, Provider PCP - General 09/08/13 Tatum Lugo MD [address] [place] [phone] 09/08/13 documented as of this encounter
--- OUTSIDE RECORDS SUMMARY | 2024-01-23 17:59 | XMS_ITS | Encounter Summary ---
Author Organization [facility] Address [facility] [place] [address] Care Team Providers Care Collection Systems Foreman Name Role Phone Mya Varghese MD Primary Care Provider Reason for Visit * Reason Comments Advice Only H/O thyroidectomy Encounter Details Date Type Department Care Team (Late st Contact Info) Description 04/25/2012 9:45 AM EST Office Visit Obstetrics [place] [phone] Maite Marks MD [facility] DR OBST[place] [address] Thyroiditis (Primary Dx); Hypothyroidism complicating ; Family [...] NECK DISSECTION performed by JUAN ESPARZA at [facility] MAIN OR ??? Somatosensory test, any/all per. nerves, trunk or head 03/22/2011 FACIAL NERVE MONITORING, SETUP performed by JUAN ESPARZA at [facility] MAIN OR ??? Tonsillectomy ??? [place] tooth extraction ??? Upper gastrointestinal endoscopy for [...] hypothyroidism. If her sister does have Long-chain 2-gbagekiqfly-ZvK dehydrogenase (LCHAD) deficiency, the patient has a [...] 01/24/2024 1:00 PM EDT Appointment [place] [address] Walt Bay MD [facility] OBSTETRICS [place] [address] 01/24/2024 2:00 PM EDT Routine Obstetrics and Gynecology at [address]1000 Taty Ramos MD [facility] DR MATERNAL & [place] [address] 02/07/2024 9:00 AM EDT Appointment Radiology at [address]1000 Walt Bay MD [facility] OBSTETRICS [place] [address] 02/07/2024 10:15 AM EDT Routine Obstetrics and Gynecology at [address]1000 Linda Diaz MD [facility] MATERNAL [place] [address] 03/12/2024 10:45 AM EST Office Visit Endocrinology at [address]1000 James Barth DO [facility] [place] [address] 05/23/2024 Hospital [place] [address] Maite Malloy MD [facility] [place] [address] documented as of this encounter Visit Diagnoses Diagnosis Thyroiditis- Primary Thyroiditis, unspecified Hypothyroidism complicating Thyroid dysfunction of mother, complicating , childbirth, or the puerperium, unspecified as to episode of care Family history of metabolic and nutritional disorder Family history of other endocrine and metabolic diseases documented in this encounter Care Teams Collection Systems Foreman Relationship Specialty Start Date End Date Mya Varghese MD [address] [place] [address] PCP - General 05/10/11 05/07/12 documented as of this encounter
--- OUTSIDE RECORDS SUMMARY | 2024-01-23 17:59 | XMS_ITS | Encounter Summary ---
Author Organization [facility] Address [address] [place] [address] Care Team Providers Care Maintainer Central Office Name Role Phone None, Provider Primary Care Provider Tatum Marcelino MD Unavailable [phone] Reason for Visit * Reason Comments Knee Injury pt tripped over david r and landed on knee - severe pain. Encounter Details Date Type Department Care Team (Late st Contact Info) Description 09/08/2013 19:26 EDT - 09/08/2013 20:51 EDT Emergency [facility] Emergency Department - Main [place] [address] [place] [address] [phone] Lucas Guajardo PA-C [address] JUAN [address] [place] [phone] Emergency, MD Francis Knee sprain (Primary Dx) [...] preliminary report dictated by Fady Jose MD, residential insurance inspector. Procedures ED Course: A medical screening exam [...] Sun09/08/13 at 2100, STAT 6 (Given - [facility] er: Nohemi Murray RN) documented in this encounter Care Teams Maintainer Central Office Relationship Specialty Start Date End Date None, Provider PCP - General 09/08/13 Tatum Lugo MD [address] [place] [phone] 09/08/13 documented as of this encounter
--- OUTSIDE RECORDS SUMMARY | 2024-01-23 17:59 | XMS_ITS | Encounter Summary ---
Author Organization [facility] [place] [address] Care Team Providers Care It Portfolio Manager Name Role Phone Mya Varghese MD Primary Care Provider [phone] Encounter Details Date Type Department Care Team (Late st Contact Info) Description 04/12/2012 Orders Only Obstetrics [place] [phone] Estelle Ribeiro RN Hypothyroidism, postsurgical (Primary Dx) [...] PM EDT Appointment Radiology at [place] [address] Walt Bay MD [facility] OBSTETRICS [place] [address] 01/24/2024 2:00 PM EDT Routine Obstetrics and Gynecology at [place] [address] Taty Ramos MD [facility] DR MATERNAL & [place] [address] 02/07/2024 9:00 AM EDT Appointment Radiology at [place] [address] Walt Bay MD [facility] DR OBSTETRICS [place] [address] 02/07/2024 10:15 AM EDT Routine Obstetrics and Gynecology at [address] Linda Diaz MD [facility] [place] [address] 03/12/2024 10:45 AM EST Office Visit Endocrinology at [address] James Barth DO [facility] [place] [address] 05/23/2024 Hospital [place] [address] Maite Malloy MD [facility] DR OBSTETRICS [place] [address] documented as of this encounter Visit Diagnoses Diagnosis Hypothyroidism, postsurgical- Primary Postsurgical hypothyroidism documented in this encounter Care Teams It Portfolio Manager Relationship Specialty Start Date End Date Mya Varghese MD [address] [place] [address] PCP - General 05/10/11 05/07/12 documented as of this encounter
--- OUTSIDE RECORDS SUMMARY | 2024-01-23 17:59 | XMS_ITS | Encounter Summary ---
Author Organization [facility] Address [address] [place] [address] Care Team Providers Care Signing Teacher Name Role Phone None, Provider Primary Care Provider Tatum Marcelino MD Unavailable [phone] Encounter Details Date Type Department Care Team (Late st Contact Info) Description 09/17/2014 Results Only [facility] [phone] Dee Dee Shukla, [facility] [address] [place] [phone] Social History Tobacco Use Types Packs/Day Years [...] ? ANDREE ROJAS ? Accession #: ? [id number] : ? 1990 (Age: 24) ??F ?Collect Date: ? 09/17/2014 Location: ? [facility] ? Receive Date: ? 09/18/2014 Provider: ?DEE DEE SHUKLA PHYSICIAN [facility] Copy to: ? Specimen/Source: ?Pap Test, Cervix/Endocervix, [...] Report Date: ??09/24/2014 08:02 End of Report [facility] 09/17/2014 09/18/2014 Dee Dee Shukla PHYSICIAN [facility] MEDICINE PATHOLOGY ORDERABLES [facility] [address] [place] [address] documented in this encounter Visit Diagnoses Not on filedocumented in this encounter Care Teams Signing Teacher Relationship Specialty Start Date End Date None, Provider PCP - General 09/08/13 Tatum Lugo MD [address] [place] [phone] 09/08/13 documented as of this encounter
--- OUTSIDE RECORDS SUMMARY | 2024-01-23 17:59 | XMS_ITS | Encounter Summary ---
Author Organization [facility] Address [address] [place] [address] Care Team Providers Care Damage Adjuster Name Role Phone None, Provider Primary Care Provider Tatum Marcelino MD Unavailable [phone] Encounter Details Date Type Department Care Team (Late st Contact Info) Description 01/30/2020 Lab Requisition [facility] Pathology & Laboratory Medicine - [address] [address] Outr Resulting Lab, Provider Social History Tobacco [...] Outr Resulting Lab MICROBIOLOGY - GENERAL ORDERABLES [facility] [address] [place] [address] * COVID-19 TESTING (01/30/2020 9:58 EDT) COVID-19 rt-PCR Result Negative Negative 01/31/2020 1:45 EDT [facility] Comment: This test has not [...] history, and epidemiological information. Performed on the [employer] instrument Performing Lab [facility] Lab 01/31/2020 1:45 EDT [facility] Swab 01/30/2020 9:58 EDT 01/30/2020 15:44 EDT Provider Outr Resulting Lab MICROBIOLOGY - GENERAL ORDERABLES [facility] [address] [place] [address] documented in this encounter Visit Diagnoses Not on filedocumented in this encounter Care Teams Damage Adjuster Relationship Specialty Start Date End Date None, Provider PCP - General 09/08/13 Tatum Lugo MD [address] [place] [phone] 09/08/13 documented as of this encounter
--- OUTSIDE RECORDS SUMMARY | 2024-01-23 17:59 | XMS_ITS | Encounter Summary ---
Author Organization [facility] Address [facility] [place] [address] Care Team Providers Care Mail Agent Name Role Phone None Primary Care Provider Unavailabl e Encounter Details Date Type Department Care Team (Latest Contact Info) Description 03/29/2011 - 03/29/2011 11:59 PM EST Hospital Encounter Radiology Library at [facility] [place] [address] Kedar Santos MD [facility] [place] [address] Discharge Disposition: Home Social History Tobacco Use [...] 01/24/2024 1:00 PM EDT [place] [address] Walt Bay MD [facility] OBSTETRICS [place] [address] 01/24/2024 2:00 PM EDT Routine Obstetrics [place] [address] Taty Ramos MD [facility] DR MATERNAL & [place] [address] 02/07/2024 9:00 AM EDT Appointment Radiology at [address]1000 Walt Bay MD [facility] OBSTETRICS [place] [address] 02/07/2024 10:15 AM EDT Routine Obstetrics and Gynecology at [place] [phone] Linda Diaz MD [facility] [place] [address] 03/12/2024 10:45 AM EST Office [place] [address] James Barth DO [facility] [place] [address] 05/23/2024 Hospital Encounter Birthing Betito [facility] [place] [phone] Maite Malloy MD [facility] DR OBSTETRICS [place] [address] documented as of this encounter Procedures Procedure Name Priority Date/Time Associated Diagnosis Comments FILM LIBRARY STORAGE ONLY DX SHOULDER Routine 03/29/2011 12:00 AM EST documented in this encounter Results * Film Library- Storage Only DX Shoulder (03/29/2011 12:00 AM EST) Narrative RUDY - 05/17/2017 11:29 AM EST This exam is for storage only and is auto-finalizing. Kedar Santos MD [facility] FILM LIBRARY ORD ERABLES [place], [place] documented in this encounter Visit Diagnoses Not on filedocumented in this encounter Care Teams Mail Agent Relationship Specialty Start Date End Date None None PCP - General 02/23/11 05/09/11 documented as of this encounter
--- OUTSIDE RECORDS SUMMARY | 2024-01-23 17:59 | XMS_ITS | Encounter Summary ---
Author Organization [facility] [place] [address] Care Team Providers Care Aerodynamicist Name Role Phone None Primary Care Provider Unavailabl e Reason for Visit * Reason Onset Date Comments Neck Pain 03/23/2011 Encounter Details Date Type Department Care Team (Late st Contact Info) Description 03/23/2011 Telephone General Surgery at [facility] [place] [phone] Chloé Santa RN Neck Pain Social History [...] from Andree who reports having neck pain. [facility] Operative Note Patient Name: Andree Hummel : [id number] MR#: [id number] Case Date: 03/22/2011 Surgeon: Surgeon(s) and Role: [...] 01/24/2024 1:00 PM EDT Appointment Radiology at [place] [phone] [facility] OBSTETRICS [place] [address] 01/24/2024 2:00 PM EDT Routine Obstetrics and Gynecology at [place] [phone] [facility] MATERNAL & [place] [address] 02/07/2024 9:00 AM [place] [address] [facility] OBSTETRICS [place] [address] 02/07/2024 10:15 AM EDT Routine Obstetrics [place] [phone] [facility] [place] [address] 03/12/2024 10:45 AM EST Office [place] [address] [facility] ENDOCRINOLOGY DEPT [place], [place] [phone] 05/23/2024 [place] [address] [facility] OBSTETRICS [place] [address] documented as of this encounter Visit Diagnoses Not on filedocumented in this encounter Care Teams Aerodynamicist Relationship Specialty Start Date End Date None None PCP - General 02/23/11 05/09/11 documented as of this encounter
--- OUTSIDE RECORDS SUMMARY | 2024-01-23 17:59 | XMS_ITS | Clinical Summary ---
Author Organization [facility] Address [address] [place] [address] Care Team Providers Care Medical Billing Associate Name Role Phone None, Provider Primary Care Provider Tatum Marcelino MD Unavailable [phone] Allergies Active Allergy Reactions Criticality Noted [...] HPV/Cotest (Cervical Cancer Screening) 06/15/2021 COVID-19 Vaccine (2 4 season) 2023 Influenza Immunization (Adult) (#1) 2024 HPV Vaccines [...] ? ANDREE ROJAS ? Accession #: ? [id number] : ? 1990 (Age: 26) ??F ?Collect Date: ? 05/21/2017 Location: ? [facility] ? Receive Date: ? 05/23/2017 Provider: ?[facility]USSELL VIVEROS [facility]- Copy to: ? Specimen/Source: ?Pap Test, [...] Report Date: ??05/29/2017 10:03 End of Report [facility] 05/21/2017 05/23/2017 Russell Warner BOW MAKER GIFT WRAPPING-BC PATHOLOGY ORDERA ARIANNA [facility] [address] [place] [address] from Last 3 Months or Most Recently Relevant to Health Maintenance Care Teams Medical Billing Associate Relationship Specialty Start Date End Date None, Provider PCP - General 09/08/13 Tatum Lugo MD [address] [place] [phone] 09/08/13
--- OUTSIDE RECORDS SUMMARY | 2024-01-23 17:59 | XMS_ITS | Encounter Summary ---
Author Organization [facility] Address [address] [place] [address] Care Team Providers Care Inspector And Tester Name Role Phone None, Provider Primary Care Provider Tatum Marcelino MD Unavailable [phone] Encounter Details Date Type Department Care Team (Latest Contact Info) Description 10/09/2013 7:21 EDT - 10/09/2013 7:22 EDT Hospital Encounter [address] [address] Jose Enrique Pacheco MD [address] [place] [address] Discharge Disposition: Home or Self [...] on filedocumented in this encounter Care Teams Inspector And Tester Relationship Specialty Start Date End Date None, Provider PCP - General 09/08/13 Tatum Lugo MD [address] [place] [phone] 09/08/13 documented as of this encounter
--- OUTSIDE RECORDS SUMMARY | 2024-01-23 17:59 | XMS_ITS | Encounter Summary ---
Author Organization [facility] [place] [address] Care Team Providers Care Supervisor Electronic Testing Name Role Phone None Primary Care Provider Unavailabl e Encounter Details Date Type Department Care Team (Late st Contact Info) Description 05/28/2012 External [place] [phone] Provider, Scanning Social History Tobacco Use Types [...] 01/24/2024 1:00 PM [place] [address] Walt Bay MD [facility] [place] [address] 01/24/2024 2:00 PM EDT Routine Obstetrics [place] [phone] Taty Ramos MD [facility] MATERNAL & [place] [address] 02/07/2024 9:00 AM EDT Appointment Radiology at [address] Walt Bay MD [facility] DR OBSTETRICS [place] [address] 02/07/2024 10:15 AM EDT Routine Obstetrics and Gynecology at [place] [phone] Linda Diaz MD [facility] [place]ERNAL [place] [address] 03/12/2024 10:45 AM EST Office Visit Endocrinology at [place] [phone] James Barth DO [facility] [place] [address] 05/23/2024 Hospital Encounter Birthing [place] [phone] Maite Malloy MD [facility] DR OBSTETRICS [place] [address] documented as of this encounter Procedures Procedure Name Priority Date/Time Associated Diagnosis Comments LAB SCAN Routine 05/21/2012 documented in this encounter Results * Scan Doc: Lab (05/21/2012) Scanning Provider MEDIA MGR SCAN EXT O RDR/RSLT documented in this encounter Visit Diagnoses Not on filedocumented in this encounter Care Teams Supervisor Electronic Testing Relationship Specialty Start Date End Date None None PCP - General 05/08/12 04/20/14 documented as of this encounter
--- OUTSIDE RECORDS SUMMARY | 2024-01-23 17:59 | XMS_ITS | Encounter Summary ---
Author Organization [facility] Address [address] [place] [address] Care Team Providers Care Geological Aide Name Role Phone Tatum Arevalo MD Primary Care Provider [phone] Encounter Details Date Type Department Care Team (Late st Contact Info) Description 05/14/2007 Results Only [facility] - [address] [phone] Harsha Kingston MD [address] [place] [phone] Social History Tobacco Use Types Packs/Day Years [...] ? ANDREE ROJAS ? Accession #: ? [id number] ? : ? 1990 (Age: 16) ??F [...] ? E ?Synaptophysin (Snp88, Biogenex) ? Non-contributory Briar Cutter sections from the stomach and duodenum were [...] reagents' ??performance characteristics have been determined by [facility]. ??This laboratory is certified under the Clinical [...] cm. ??Submitted in toto as (K). ??(Jadon Cheney)/[facility] End of Report [facility] 05/14/2007 05/14/2007 12: 18 EST Harsha Kingston MD PATHOLOGY ORDERABLES Performing Organization Address City/State/[facility] Co de Phone Number [facility] [address] [place] [address] documented in this encounter Visit Diagnoses Not on filedocumented in this encounter Care Teams Geological Aide Relationship Specialty Start Date End Date Tatum Arevalo MD [address] [place] [phone] PCP - General 08/06/08 11/13/10 documented as of this encounter
--- OUTSIDE RECORDS SUMMARY | 2024-01-23 17:59 | XMS_ITS | Encounter Summary ---
Author Organization [facility] Address [facility] [place] [address] Care Team Providers Care Machine Chain Maker Name Role Phone None Primary Care Provider Unavailabl e Encounter Details Date Type Department Care Team (Late st Contact Info) Description 04/05/2011 Orders [place] [phone] Marlo Ko MD [facility] [place] [address] Social History Tobacco Use Types Packs/Day Years [...] 01/24/2024 1:00 PM EDT [place] [address] Walt Bay MD [facility] OBSTETRICS AND GYNECOLOGY [place], [place] [phone] 01/24/2024 2:00 PM EDT Routine Obstetrics [place] [address] Taty Ramos MD [facility] MATERNAL & [place] [address] 02/07/2024 9:00 AM EDT [place] [address] Walt Bay MD [facility] [address] OBSTETRICS [place] [address] 02/07/2024 10:15 AM EDT Routine Obstetrics and Gynecology at [place] [phone] Linda Diaz MD [facility] [place] [address] 03/12/2024 10:45 AM EST Office [place] [address] James Barth DO [facility] [place] [address] 05/23/2024 Hospital Encounter Birthing [place] [phone] Maite Malloy MD [facility] [address] OBSTETRICS [place] [address] documented as of this encounter Visit Diagnoses Not on filedocumented in this encounter Care Teams Machine Chain Maker Relationship Specialty Start Date End Date None None PCP - General 02/23/11 05/09/11 documented as of this encounter
--- OUTSIDE RECORDS SUMMARY | 2024-01-23 17:59 | XMS_ITS | Encounter Summary ---
Author Organization [facility] Address [facility] [place] [address] Care Team Providers Care Pen Rider Name Role Phone None Primary Care Provider Unavailabl e Encounter Details Date Type Department Care Team (Late st Contact Info) Description 05/29/2012 External Results Obstetrics [place] [address] Myles Irwin, RN Social History Tobacco Use [...] 01/24/2024 1:00 PM [place] [address] Walt Bay MD [facility] OBSTETRICS [place] [address] 01/24/2024 2:00 PM EDT Routine Obstetrics [place] [address] Taty Ramos MD [facility] MATERNAL & [place] [address] 02/07/2024 9:00 AM EDT [place] [address] Walt Bay MD [facility] DR OBSTETRICS [place] [address] 02/07/2024 10:15 AM EDT Routine Obstetrics and Gynecology at [place] [phone] Linda Diaz MD [facility] DR MATERNAL [place] [address] 03/12/2024 10:45 AM EST Office Visit Endocrinology at [place] [phone] James Barth DO [facility] [place] [address] 05/23/2024 Hospital Encounter Birthing [place] [phone] Maite Malloy MD [facility] DR OBSTETRICS [place] [address] documented as of this encounter Procedures Procedure Name Priority Date/Time Associated Diagnosis Comments TSH Routine 05/21/2012 INITIAL EXTERNAL RESULTS PANEL Routine 05/06/2012 documented in this encounter Results * (ABNORMAL) TSH (05/21/2012) Thyroid Stimulating Hormone 2.42(Exter nal Lab) Blood specimen (specimen) 05/21/2012 Griffin Wallis III, MD CHEMISTRY ORDER AMANDA * (ABNORMAL) Initial External Lab Panel (05/06/2012) ABORH Type A+([employer] Net Developer al Lab) Ab Screen Interp Positive( EXTERNAL/ ABN) (none) Comment:Anit Estuardo Hemoglobin 12.0 - 16.0 Hematocrit 36.0 - 46.0 Mean Cell Volume 82.0 - 108.0 Platelet Rubella Antibody IgG Syphilis IgG (none) Hepatitis B Surface Antigen (none) HIV 1/2 Ab Thyroid Stimulating Hormone Hemoglobin A1c Cystic Fibrosis Report Protein, 24 Hour Urine Creatinine Clearance, 24 Hour Urine Creatinine Aspartate Aminotransferase 13 - 35 Alanine Aminotransferase 7 - 35 Uric Acid Urine Culture GC Gene Amp Chlamydia Gene Amp Cytopathology Final Report GBS Screen Gluc Baseline Glucose 1 hour Glucose 2 hour Glucose 3 hour Oral Glucose Dose 05/06/2012 Keith Barrett CNM POINT OF CARE TEST O RDERABLES documented in this encounter Visit Diagnoses Not on filedocumented in this encounter Care Teams Pen Rider Relationship Specialty Start Date End Date None None PCP - General 05/08/12 04/20/14 documented as of this encounter
--- OUTSIDE RECORDS SUMMARY | 2024-01-23 17:59 | XMS_ITS | Encounter Summary ---
Author Organization [facility] Address [facility] [place] [address] Care Team Providers Care Creative Technologist Name Role Phone None Primary Care Provider Unavailabl e Encounter Details Date Type Department Care Team (Late st Contact Info) Description 04/03/2011 Orders Only [place] [address] [facility] [place] [address] Follicular adenoma of thyroid gland [...] 01/24/2024 1:00 PM EDT Appointment [place] [address] [facility] [place] [address] 01/24/2024 2:00 PM EDT Routine Obstetrics [place] [address] [facility] MATERNAL & [place] [address] 02/07/2024 9:00 AM EDT Appointment Radiology at [address] [facility] DR OBSTETRICS [place] [address] 02/07/2024 10:15 AM EDT Routine Obstetrics [place] [address] [facility] [place] [address] 03/12/2024 10:45 AM EST Office Visit [place] [address] [facility] [place] [address] 05/23/2024 Hospital Encounter Birthing [place] [phone] [facility] [place]ST[place]ICS [place] [address] documented as of this encounter Results * (ABNORMAL) TSH (05/10/2011 8:03 AM EST) Thyroid Stimulating Hormone 111.10(H) 0.27 - 4.20 mcIU/mL [facility] Blood specimen (specimen) 05/10/2011 8:03 AM EST 05/10/2011 8:10 AM EST Marlo Ko MD CHEMISTRY ORDERABL ES [facility] * (ABNORMAL) T4 (05/10/2011 8:03 AM EST) T4 Total 4.0(L) 5.1 - 10.8 mcg/dL [facility] Comment: Reference Range: S[employer] Cord Blood: ??6.9-14.4 mcg/dL Females: ??7.2-14.2 mcg/dL Pediatric ranges: ??Interpret with caution-ranges have not been verified Blood specimen (specimen) 05/10/2011 8:03 AM EST 05/10/2011 8:10 AM EST Marlo Ko MD CHEMISTRY ORDERABL ES Performing Organization Address City/State/[facility] Co de Phone Number [facility] documented in this encounter Visit Diagnoses Diagnosis Follicular adenoma of thyroid gland- Primary Benign neoplasm of thyroid glands documented in this encounter Care Teams Creative Technologist Relationship Specialty Start Date End Date None None PCP - General 02/23/11 05/09/11 documented as of this encounter
--- OUTSIDE RECORDS SUMMARY | 2024-01-23 17:59 | XMS_ITS | Encounter Summary ---
Author Organization [facility] [place] [address] Care Team Providers Care Merchandise Presentation Associate Name Role Phone None Primary Care Provider Unavailabl e Reason for Visit * Reason Comments Family History sister with possible LCHAD deficiency Encounter Details Date Type Department Care Team (Late st Contact Info) Description 05/22/2012 10:00 AM EST Office Visit Obstetrics [place] [address] Félix Richardson, [facility] OBSTETRICS & [place] [address] Family history of metabolic disease (Primary Dx); [...] AM EST GENETIC COUNSELING NOTE Andree Walt Hummel was referred for genetic counseling by Maite [...] mother provided written authorization to review the [facility] medical records of Andree's sister, Ana Hummel ( 03/27/1999). 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 She then had numerous [...] with written information about LCHAD deficiency from [employer] (www. screening.info), which includes a list of [...] 01/24/2024 1:00 PM EDT Appointment Radiology at [place] [phone] Walt Bay MD [facility] OBSTETRICS [place] [address] 01/24/2024 2:00 PM EDT Routine Obstetrics and Gynecology at [place] [phone] Taty Ramos MD [facility] MATERNAL & [place] [address] 02/07/2024 9:00 AM EDT Appointment Radiology at [place] [phone] Walt Bay MD [facility] OBSTETRICS [place] [address] 02/07/2024 10:15 AM EDT Routine Obstetrics [place] [address] Linda Diaz MD [facility] MATERNAL [place] [address] 03/12/2024 10:45 AM EST Office [place] [address] James Barth DO [facility] [place] [address] 05/23/2024 Hospital Encounter Birthing [place] [phone] Maite Malloy MD [facility] OBSTETRICS [place] [address] documented as of this encounter Visit Diagnoses Diagnosis Family history of metabolic disease- Primary Family history of other endocrine and metabolic diseases Genetic counseling documented in this encounter Care Teams Merchandise Presentation Associate Relationship Specialty Start Date End Date None None PCP - General 05/08/12 04/20/14 documented as of this encounter
--- OUTSIDE RECORDS SUMMARY | 2024-01-23 18:00 | XMS_ITS | Encounter Summary ---
Author Organization [facility] Address [address] [place] [address] Care Team Providers Care Centrifugal Casting Machine Operator Name Role Phone Unavailable Primary Care Provider Unavailabl e Encounter Details Date Type Department Care Team (Late st Contact Info) Description 04/29/2007 8:27 [facility] Hospital Encounter [address] [address] Harsha Kingston MD [address] [place] [phone] Social History Tobacco Use Types Packs/Day Years [...]
--- OUTSIDE RECORDS SUMMARY | 2024-01-23 18:00 | XMS_ITS | Encounter Summary ---
Author Organization [facility] Address [address] [place] [address] Care Team Providers Care Straight Knife Machine Cutter Name Role Phone Tatum Arevalo MD Primary Care Provider [phone] Encounter Details Date Type Department Care Team (Late st Contact Info) Description 04/29/2007 Before PRISM Converted Visit (Maple) [facility] - Maple conversion [address] [place] [address] Harsha Kingston MD [address] [place] [phone] Social History Tobacco Use Types Packs/Day Years Used Date Smoking Tobacco: Never Assessed Sex and Gender Information Value Date Recorded Sex Assigned at Not on file Gender Identity Not on file Sexual Orientation Not on file documented as of this encounter Progress Notes * Harsha Gonzalez MD - 02/24/2009 1111 EST PROGRESS/FOLLOWUP NOTE - THE PEDIATRIC GI TEAM: Pediatric GI, Hepatology & Nutrition MD Cale Arechiga MD Elizabeth F. Robinson, MS, PNP Renee Patterson, , WINDING INSPECTOR AND TESTER ([id number]), REFERRING PHYSICIAN Tatum Arevalo M.D. PROBLEM Abdominal [...] counseling and/or coordination of care. Signed by Harsha Kingston MD 06/06/2007 14:55 Harsha Kingston MD Division of Pediatric Gastroenterology [phone] - Harsha Kingston MD A - RADHA Job ID: [id number] Doc ID: [id number] cc: Tatum Arevalo MD documented in this encounter Procedure Notes * Harsha Gonzalez MD - 02/24/2009 1129 EST [facility] Colonoscopy Procedure Report Attending Physician: HARSHA GONZALEZ MD Referring Physician: TATUM AREVALO MD [...] ileum, confirmed by appendiceal orifice, cecal strap (pamunkey's foot), and ileocecal valve. The scope was [...] By: The procedure was performed by Dr. Harsha Kingston. Report electronically signed by Dr. HARSHA GONZALEZ MD, M.D. on 05/14/2007 at 10:23 [facility] Document ID: [id number] * Harsha Gonzalez MD - 02/24/2009 1129 EST [facility] Esophagogastroduodenoscopy Procedure Report Attending Physician: HARSHA GONZALEZ MD Referring Physician: TATUM AREVALO MD [...] By: The procedure was performed by Dr. Harsha Kingston. Report electronically signed by Dr. HARSHA GONZALEZ MD, M.D. on 05/14/2007 at 09:49 [facility] Document ID: [id number] documented in this encounter Consult Notes * Harsha Gonzalez MD - 02/23/2009 0532 EST CONSULTATION - 04/29/2007 Jim Marino M.D. [address] [place] [address] Marino: THE PEDIATRIC GI TEAM: Pediatric GI, Hepatology & Nutrition MD Cale Arechiga MD Elizabeth F. Robinson, MS, PNP Renee Patterson MS, WINDING INSPECTOR AND TESTER (GI-[place]), Andree was seen in consultation today at [...] has. She was recently [facility], needing a short course of steroids. Her [...] counseling and/or coordination of care. Signed by Harsha Kingston MD 05/03/2007 11:27 Harsha Kingston MD Division of Pediatric Gastroenterology [phone] - Harsha Kingston MD P - radha Job ID: [id number] Doc ID: [id number] cc: MD Harsha [place] MD P - radha Job ID: [id number] Doc ID: [id number] cc: Jim Marino MD documented in this encounter Plan of Treatment Not on file documented as of this encounter Visit Diagnoses Not on filedocumented in this encounter Care Teams Straight Knife Machine Cutter Relationship Specialty Start Date End Date Tatum Arevalo MD [address] [place] [phone] PCP - General 08/06/08 11/13/10 documented as of this encounter
== END 2024-01-23 17:48 | disposition home or self-care (01) ==
LOC: ER 17:51
PROVIDERS: Emergency Provider Emergency Medicine; PCP Nurse Practitioner Family
DX: O26.892 Other specified pregnancy related conditions, second trimester (principal); R10.30 Lower abdominal pain, unspecified; Z3A.20 20 weeks gestation of pregnancy; Z87.891 Personal history of nicotine dependence
CPT/HCPCS: 36415; 80053; 86850; 86900; 86901; 99283; 81003; 84702

== ENCOUNTER 2024-02-21 14:40 | Outpatient (CLI) | payer MEDICAID, SELFPAY ==
--- OUTSIDE RECORDS SUMMARY | 2024-02-21 14:43 | XMS_ITS | Clinical Summary ---
Author Organization [facility] Address [facility] [place] [address] Care Team Providers Care Central Supply Nurse Name Role Phone Richard Rasheed MD Primary Care Provider [phone] Allergies Active Allergy Reactions Criticality Noted Date Comments Codeine Nausea And Vomiting Low 12/31/2019 Meperidine Anaphylaxis High 04/25/2012 Hydromorphone (Bulk) Hives High 03/22/2011 Medications Medication Sig Dispensed Refills Start Date End Date Status vitamin with [id number]-Gu-Cxtc-FA Tablet Take by mouth. Active calcium carbonate [...] Noted Date Diagnosed Date Hypothyroidism, postsurgical 08/01/2022 Assessment & Plan (02/07/2024 8:38 PM EDT): Hypothyroidism (s/p thyroidectomy): this history was unclear today but review of the record suggests the indication for surgery was not malignancy. (Endocrine note from 04/2021 says hypothyroidism post surgery with benign findings. (Note-- She always thought that she had thyroid cancer after having the surgery and now understands that the final pathology report shared with her via VDO screen today did not show thyroid cancer at all so she was surprised and felt very relived.) Path as below: CORRECTED REPORT (see Comment) Thyroid and central [...] 0.6 cm. 6. Incidental intrathyroidal adipose tissue. Further review of endo note suggests GI absorption concern for TSH She has had a wide TSH fluctuation 0.1-127 range despite good medication compliant, most likely due to GI malabsorption and will try to eat [...] outside and recheck lab soon at [facility] lab. If TSH remains high, we may add cytomel short-acting to suppress TSH down or switch synthroid to Tirosint but the latter will be more costly and will try to improve her GI absorption for synthroid first. Vitamin D deficiency 05/10/2021 mild anemia with Iron deficiency and low normal B12 05/10/2021 Asthma 04/26/2021 Borderline personality disorder 07/15/2020 Intractable chronic migraine without aura 2015 Premature delivery 09/15/2012 Assessment & Plan (02/07/2024 1:39 PM EDT): Serial CL with no shortening /1\ Ucx no ASB Precautions reviewed. 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 Removed 08/04/2020. Left knee pain 04/21/2014 02/07/2024 Threatened labor, antepartum 09/03/2012 04/01/2015 Obesity (BMI 30.0-34.9) 06/12/201203/16 History of loss in prior , currently 06/12/2012 04/01/2015 Overview (06/12/2012): Reports 20 week loss that she delivered at home and did not seek care. , supervision of, high-risk 05/22/2012 04/01/2015 Overview (05/22/2012): Team MFM transfer of care from [facility] Delivery plan GBS date & Result Cystic fibrosis choice Aneuploidy choice QUAD Others screening tests nutrition Childbirth education declined preferences Contraception plan undecided Ped/circ plans Immunizations: Influenza vaccine Accepted Declined Contraindicated x Other vaccines Indicated Not indicated Given during Tdap x Pneumovax MMR Varicella Other Migraine 02/23/2011 04/01/2015 Thyroid nodule 02/23/2011 06/12/2012 Encounters Date Type Department Care Team Description 02/11/2024 Orders Only Obstetrics [place] [phone] Linda Diaz MD Hypothyroidism, postsurgical 02/07/2024 10:15 AM EDT Routine Obstetrics [place] [address] Linda Diaz MD GA: 21w4d 02/07/2024 9:00 AM EDT - 02/07/2024 11:59 PM EDT Hospital [place] [phone] Walt Briseno MD History of delivery, currently Discharge Disposition: Home 02/07/2024 Travel 01/03/2024 Orders Only Obstetrics and Gynecology at [place] [phone] Maite Marks MD Hypothyroidism, postsurgical 12/27/2023 3:55 PM EDT Laboratory Appointment Lab [address] [place] [phone] care in first trimester; Hypothyroidism, postsurgical 12/27/2023 12:57 PM EDT - 12/27/2023 11:59 PM EDT Hospital Encounter Ultrasound at [place] [phone] Walt Briseno MD History of delivery, currently Discharge Disposition: Home 12/27/2023 Travel 11/29/2023 Telephone Main Operating Room [place] [phone] Suzanne Bhatti DO 11/23/2023 1:00 PM EDT TH Visit (TeleHealth) Obstetrics and Gynecology at [place] [phone] Félix Richardson, LOCATED WITHIN [facility] Encounter for procreative genetic counseling; Family history of genetic disease carrier; Encounter of female for testing for genetic disease carrier status for procreative management; care in first trimester 11/22/2023 Telephone [place]etrics [place] [phone] Suri Menon, RN 11/21/2023 Telephone [place]etrics [place] [phone] Sary Harris from Last 3 Months Immunizations Name Administration [...] Tobacco: Never Tobacco Cessation:Ready to Q uit: Not Asked; Counseling Given: Not Answered Comments:5-6 cigarettes per day. Alcohol Use Standard Drinks/Week Comments Yes 0 (1 standard drink = 0.6 oz pur e alcohol) socially B1300 Health Literacy Answer Date Recor ded How often do you need to hav e someone help you when you read instructions, pamphlets, or other written material from your doctor or pharmacy? Never 10/12/2023 [employer]ities Answer Date Recorded In the past 12 months has [employer] gas, oil, or water [employer] threatened to shut off services in your [...] Estimated Date of Delivery Comme nts Yes 06/15/2024 Based on Ultraso und Sex and Gender Information Value Date Recorded Sex Assigned at Female 10/12/2023 9:44 AM EDT Gender Identity Female 10/12/2023 9:44 AM EDT Sexual Orientation Straight 10/12/2023 9: 44 AM EDT Last Filed Vital Signs Vital Sign Reading Time Taken Comments Blood Pressure 112/70 02/07/2024 10:50 AM EDT Pulse 120 08/18/2021 2:00 PM EDT Temperature 36.8 ??C (98.2 ??F) 08/04/2020 10:16 AM E DT Respiratory Rate 10 04/26/2021 11:20 AM EST Oxygen Saturation 99% 08/04/2020 10:16 AM EDT Inhaled Oxygen Concentration - - Weight 87.8 kg (193 lb 8 oz) 02/07/2024 10:50 AM EDT Height 172.7 cm (5' 8) 04/26/2021 11:20 AM EST Body Mass Index 29.42 04/26/2021 11:20 AM EST Plan of Treatment Upcoming Encounters Date Type Department Care Team (Late st Contact Info) Description 03/03/2024 3:00 PM EST [place] [phone] Linda Diaz MD [facility] [place] [address] 03/03/2024 4:00 PM EST Routine Obstetrics and Gynecology at [place] [phone] Linda Diaz MD [facility] [place] [address] 03/03/2024 4:30 PM EST Scheduled View Only Obstetrics [place] [phone] 03/12/2024 10:45 AM EST Office Visit Endocrinology at [place] [phone] James Barth DO [facility] [place] [address] 05/23/2024 Hospital [place] [phone] Maite Malloy MD [facility] [address] OBSTETRICS [place] [address] Health Maintenance Due Date Last Done Comments [...] (1 - Risk pregna nt 1-dose series) 04/20/2024 HIV screen Completed 11/08/2023, 09/03/2012 Hepatitis C Screening Completed 11/08/2023 Procedures Procedure Name Priority Date/Time Associated Diagnosis Comments US OB DETAILED MORPHOLOGY Routine 02/07/2024 10:39 AM EDT History of delivery, currently T4, FREE Routine 12/27/2023 2:54 PM EDT Hypothyroidism, postsurgical TSH CASCADE Routine 12/27/2023 2:54 PM EDT Hypothyroidism, postsurgical US OB CERVICAL LENGTH TRANSVAGINAL Routine 12/27/2023 1:31 PM EDT History of delivery, currently HIV SCREEN, 4TH GENERATION ([facility]/CGP/APD/NLH) Routine 11/08/2023 3:33 PM EDT care in first trimester HEPATITIS C ANTIBODY Routine 11/08/2023 3:33 PM EDT care in first trimester WIRE LATHER CYTOLOGY FINAL REPORT Routine 08/04/2020 10:25 AM EDT from Last 3 Months or Most Recently Relevant to Health Maintenance Results * US OB Detailed Morphology (02/07/2024 10:39 AM EDT) WORKSTATION ID [id number] [facility] Anatomical Region Laterality Modality Pelvis, Abdomen Ultrasound 02/07/2024 10:2 3 AM EDT Impressions 02/07/2024 10:53 AM EDT 2nd Trimester - Detailed Morphology - Summary Single intrauterine with a gestational age of 21w 4d based on U/S C R L ??(11/08/23) Composite age based on the current ultrasound alone is 22w 2d. Current growth parameters are consistent with prior dating indicating normal growth. Amniotic fluid volume is Subjectively normal for gestational age Detailed anatomic evaluation was performed and no structural abnormalities are noted. Transvaginal ultrasound examination was performed to evaluate cervical length. ??Some of the transvaginal images suggest a posterior succenturiate lobe that is low lying 1cm from internal os but no bridging vessels were seen. ??On transabdominal imaging this area appears to be most consistent with a uterine contraction. ??I recommend a follow up ultrasound to reassess placenta location and exclude succenturiate lobe. Detailed anatomic evaluation was performed and no structural abnormalities are noted. Addendum by Dr Diaz ZAYDA is corrected to reflect first ultrasound with CRL rather than ZAYDA by gestational sac. Changes also made in EPIC Thank you for letting us participate in the care of this patient. If you are a health care provider and have any questions regarding this report, please contact the number above. For patients who have questions, please contact the health foster care therapist that requested your imaging first. ?Linda Diaz, Field Sales Specialist Electronically Signed Corrected Final Report ??02/07/2024 01:35 pm Narrative 02/07/2024 10:53 AM EDT OBSTETRICS REPORT ? (Corrected Final 02/07/2024 01:35 pm) PATIENT INFO: ID #: ? [id number] ?: ??[birth year] (33 yrs)(F) Name: ? SORURVASHI E ? Visit Date: 02/07/2024 10:23 am ? LOUISE- ? FRANK PERFORMED BY: Performed By: ? Aster Betancur RDMS Attending: ?Lalita Carmona MD Referred By: ?Walt BRISENO Location: ? [place] SERVICE(S) PROVIDED: [facility] - Detailed Morphology - [id number] ? [id number] UOBTVCER - Transvaginal ??2nd Trimester - ?88872 Cervical Length - [id number] INDICATIONS: 21 weeks gestation of ?Z3A.21 h/o PTD; cervical length, anatomy TECHNIQUE/SCAN QUALITY: Technique: ?? Transducer ID#:[id number] VITAL SIGNS: Weight (lb): 181.0 Height: ?5'8 ? BMI: ? 27.52 EVALUATION: Num Of Fetuses: ? 1 Heart Rate(bpm): ??153 Cardiac Activity: ? Observed, normal rhythm Presentation: ? Cephalic Placenta: ? Anterior P. Cord Insertion: ?Marginal Amniotic Fluid UDAY FV: ?Subjectively normal for gestational age --------- BIOMETRY: --------- BPD: ?55.5 ??mm ? G.Age: ?? 22w 6d OFD: ?69.3 ??mm HC: ?199.6 ??mm ? G.Age: ?? 22w 1d AC: ?170.7 ??mm ? G.Age: ?? 22w 0d FL: ? 38.5 ??mm ? G.Age: ?? 22w 2d HUM: ?35.6 ??mm ? G.Age: ?? 22w 3d CER: ?24.9 ??mm ? G.Age: ?? 22w 6d NFT: ?2.88 ??mm NB: ?7.4 ??mm LV: ?8.0 ??mm CM: ?6.7 ??mm CI: ?80.1 ??% ? 70 - 86 FL/HC: ? 19.3 ??% ? 18.4 - 20.2 HC/AC: ? 1.17 ?1.06 - 1.25 FL/BPD: ?69.4 ??% ? 71 - 87 FL/AC: ? 22.6 ??% ? - 24 Est. FW: ? 484 ??gm ?1 lb 1 oz OB HISTORY: : ?4 ? Luis: ?? 1 ? SAB: ?? 2 Living: ? 1 GESTATIONAL AGE: LMP: ? 24w 6d ?Date: ??08/17/23 ? ZAYDA: ?? 05/23/24 Clinical ZAYDA: ??22w 0d ?ZAYDA: ?? 06/12/24 U/S Today: ? 22w 2d ?ZAYDA: ?? 06/10/24 Best: ?21w 4d ?? Det. By: ??U/S C R L ?ZAYDA: ?? 06/15/24 ? (11/08/23) TARGETED ANATOMY: Central Nervous System Calvarium/Cranial V.: ??Within Normal Limits Intracranial Drea: ? Visualized Cavum: ? Visualized Parenchyma: ?Visualized Lateral Ventricles: ?Within Normal Limits Choroid Plexus: ?Visualized Cereb./Vermis: ? Within Normal Limits Cisterna Magna: ?Within Normal Limits Midline Falx: ?Visualized Spine Cervical: ?Visualized Thoracic: ?Visualized Lumbar: ?Visualized Sacral: ?Visualized Shape/Curvature: ? Visualized Head/Neck Face: ?Visualized Lips: ?Visualized Neck: ?Visualized Nuchal Fold: ? Within Normal Limits Nasal Bone: ?Present Profile: ? Visualized Orbits/Eyes: ? Visualized Mandible: ?Visualized Maxilla: ? Visualized Thorax Thoracic Contour: ?Visualized Lungs: ? Visualized 4 Chamber View: ?Visualized Cardiac Activity: ?Normal Rhythm Rt Outflow Tract: ?Visualized Lt Outflow Tract: ?Visualized Aortic Arch: ? Visualized Ductal Arch: ? Visualized SVC: ? Visualized Interventr. Septum: ?Visualized Cardiac Loving: ?Visualized Diaphragm: ? Visualized 3 Vessel View: ? Visualized 3 V Trachea View: ?Visualized IVC: ? Visualized Crossing: ?Visualized Abdomen Ventral Wall: ?Visualized Cord Insertion: ?Visualized Situs: ? Normal Stomach: ? Visualized Liver: ? Visualized Lt Kidney: ? Visualized Rt Kidney: ? Visualized Bladder: ? Visualized Bowel: ? Visualized Extremities Lt Humerus: ?Visualized Rt Humerus: ?Visualized Lt Forearm: ?Visualized Rt Forearm: ?Visualized Lt Hand: ? Visualized Rt Hand: ? Visualized Lt Femur: ?Visualized Rt Femur: ?Visualized Lt Lower Leg: ?Visualized Rt Lower Leg: ?Visualized Lt Foot: ? Visualized Rt Foot: ? Visualized Other Umbilical Cord: ?3 vessel cord Genitalia: ? Female CERVIX UTERUS ADNEXA: Cervix Length: ?4.0 ??cm. Closed Right Ovary Not visualized Left Ovary Size(cm) ? 3.7 ??x ?? 2.8 ?x ??1.8 ? Vol(ml): 9.8 Visualized Procedure Note Lalita Carmona MD - 02/07/2024 OBSTETRICS REPORT (Corrected Final 02/07/2024 01:35 pm) PATIENT INFO: ID #: [id number] : [birth year] (33 yrs)(F) Name: PREETHI Godoy Visit Date: 02/07/2024 10:23 am MARIO MARIE PERFORMED BY: Performed By: Aster Betancur RDMS Attending: Lalita Carmona MD Referred By: Walt BRISENO Location: [place] SERVICE(S) PROVIDED: [facility] - Detailed Morphology - [id number] UOBTVCER - Transvaginal 2nd Trimester - 16134 Cervical Length - [id number] INDICATIONS: 21 weeks gestation of Z3A.21 h/o PTD; cervical length, anatomy TECHNIQUE/SCAN QUALITY: Technique: Transducer ID#:[id number] VITAL SIGNS: Weight (lb): 181.0 Height: 5'8 BMI: 27.52 EVALUATION: Num Of Fetuses: 1 Heart Rate(bpm): 153 Cardiac Activity: Observed, normal rhythm Presentation: Cephalic Placenta: Anterior P. Cord Insertion: Marginal Amniotic Fluid UDAY FV: Subjectively normal for gestational age --------- BIOMETRY: --------- BPD: 55.5 mm G.Age: 22w 6d OFD: 69.3 mm HC: 199.6 mm G.Age: 22w 1d AC: 170.7 mm G.Age: 22w 0d FL: 38.5 mm G.Age: 22w 2d HUM: 35.6 mm G.Age: 22w 3d CER: 24.9 mm G.Age: 22w 6d NFT: 2.88 mm NB: 7.4 mm LV: 8.0 mm CM: 6.7 mm CI: 80.1 % 70 - 86 FL/HC: 19.3 % 18.4 - 20.2 HC/AC: 1.17 1.06 - 1.25 FL/BPD: 69.4 % 71 - 87 FL/AC: 22.6 % - 24 Est. FW: 484 gm 1 lb 1 oz OB HISTORY: : 4 Luis: 1 SAB: 2 Livin GESTATIONAL AGE: LMP: 24w 6d Date: 08/17/23 ZAYDA: 05/23/24 Clinical ZAYDA: 22w 0d ZAYDA: 06/12/24 U/S Today: 22w 2d ZAYDA: 06/10/24 Best: 21w 4d Det. By: U/S C R L ZAYDA: 06/15/24 (11/08/23) TARGETED ANATOMY: Central Nervous System Calvarium/Cranial V.: Within Normal Limits Intracranial Drea: Visualized Cavum: Visualized Parenchyma: Visualized Lateral Ventricles: Within Normal Limits Choroid Plexus: Visualized Cereb./Vermis: Within Normal Limits Cisterna Magna: Within Normal Limits Midline Falx: Visualized Spine Cervical: Visualized Thoracic: Visualized Lumbar: Visualized Sacral: Visualized Shape/Curvature: Visualized Head/Neck Face: Visualized Lips: Visualized Neck: Visualized Nuchal Fold: Within Normal Limits Nasal Bone: Present Profile: Visualized Orbits/Eyes: Visualized Mandible: Visualized Maxilla: Visualized Thorax Thoracic Contour: Visualized Lungs: Visualized 4 Chamber View: Visualized Cardiac Activity: Normal Rhythm Rt Outflow Tract: Visualized Lt Outflow Tract: Visualized Aortic Arch: Visualized Ductal Arch: Visualized SVC: Visualized Interventr. Septum: Visualized Cardiac Loving: Visualized Diaphragm: Visualized 3 Vessel View: Visualized 3 V Trachea View: Visualized IVC: Visualized Crossing: Visualized Abdomen Ventral Wall: Visualized Cord Insertion: Visualized Situs: Normal Stomach: Visualized Liver: Visualized Lt Kidney: Visualized Rt Kidney: Visualized Bladder: Visualized Bowel: Visualized Extremities Lt Humerus: Visualized Rt Humerus: Visualized Lt Forearm: Visualized Rt Forearm: Visualized Lt Hand: Visualized Rt Hand: Visualized Lt Femur: Visualized Rt Femur: Visualized Lt Lower Leg: Visualized Rt Lower Leg: Visualized Lt Foot: Visualized Rt Foot: Visualized Other Umbilical Cord: 3 vessel cord Genitalia: Female CERVIX UTERUS ADNEXA: Cervix Length: 4.0 cm. Closed Right Ovary Not visualized Left Ovary Size(cm) 3.7 x 2.8 x 1.8 Vol(ml): 9.8 Visualized IMPRESSION 2nd Trimester - Detailed Morphology - Summary Single intrauterine with a gestational age of 21w 4d based on U/S C R L (11/08/23) Composite age based on the current ultrasound alone is 22w 2d. Current growth parameters are consistent with prior dating indicating normal growth. Amniotic fluid volume is Subjectively normal for gestational age Detailed anatomic evaluation was performed and no structural abnormalities are noted. Transvaginal ultrasound examination was performed to evaluate cervical length. Some of the transvaginal images suggest a posterior succenturiate lobe that is low lying 1cm from internal os but no bridging vessels were seen. On transabdominal imaging this area appears to be most consistent with a uterine contraction. I recommend a follow up ultrasound to reassess placenta location and exclude succenturiate lobe. Detailed anatomic evaluation was performed and no structural abnormalities are noted. Addendum by Dr Diaz ZAYDA is corrected to reflect first ultrasound with CRL rather than ZAYDA by gestational sac. Changes also made in EPIC Thank you for letting us participate in the care of this patient. If you are a health care provider and have any questions regarding this report, please contact the number above. For patients who have questions, please contact the health foster care therapist that requested your imaging first. Linda Diaz, Field Sales Specialist Electronically Signed Corrected Final Report 02/07/2024 01:35 pm E Jessica Briseno MD IMG US OB ORDERAB LES * (ABNORMAL) TSH Mcculloch (12/27/2023 2:54 PM EDT) Thyroid Stimulating Hormone 84.50(H) 0.27 - 4.20 mcIU/mL 12/27/2023 4:13 PM EDT [facility] Comment: Reference Interval (mcIU/mL): ?? Females: ? First Trimester: 0.23-3.88 ? Second Trimester: 0.22-3.90 ? Third Trimester: 0.44-4.66 Blood VENOUS BLOOD SPECIMEN / Unknown Venipuncture / Unknown 12/27/2023 2:54 PM EDT 12/27/2023 2:54 PM EDT Maite Marks MD CHEMISTRY ORDERABLES Performing Organization Address [facility] Co de Phone Number [facility] [place] [address] * (ABNORMAL) T4, free (12/27/2023 2:54 PM EDT) Free T4 0.51(L) 0.93 - 1.70 ng/dL 12/27/2023 4:53 PM EDT [facility] Comment: Reference Interval (ng/dL): ?? Females: ? First Trimester: 0.97-1.68 ? Second Trimester: 0.77-1.51 ? Third Trimester: 0.77-1.49 Blood VENOUS BLOOD SPECIMEN / Unknown Venipuncture / Unknown 12/27/2023 2:54 PM EDT 12/27/2023 2:54 PM EDT Maite Marks MD CHEMISTRY ORDERABLES Performing Organization Address [facility] Co de Phone Number [facility] [place] [address] * US OB Cervical Length Transvaginal (12/27/2023 1:31 PM EDT) WORKSTATION ID [id number] [facility] Anatomical Region Laterality Modality Pelvis, [...] who have questions, please contact the health foster care therapist that requested your imaging first. ? Linda Diaz, Field Sales Specialist Electronically Signed Final Report ?? 12/27/2023 01:45 pm Narrative 12/27/2023 1:45 PM EDT OBSTETRICS REPORT ?(Signed Final 12/27/2023 01:45 pm) PATIENT INFO: ID #: ? [id number] ?: ??[birth year] (33 yrs)(F) Name: ? PREETHI Godoy ? Visit Date: 12/27/2023 01:34 pm ? LOUISE- ? FRANK PERFORMED BY: Performed By: ? Car Can RDMS Attending: ?Emily LIMA, Linda Figueroa Referred By: ?Walt BRISENO Location: ? [place] SERVICE(S) PROVIDED: UOBTVCER - Transvaginal ??2nd Trimester - ?36441 Cervical Length - [id number] INDICATIONS: 16 weeks gestation of ?Z3A.16 h/o [...] 12/27/2023 01:45 pm) PATIENT INFO: ID #: [id number] : [birth year] (33 yrs)(F) Name: PREETHI Godoy Visit Date: 12/27/2023 01:34 pm MARIO MARIE PERFORMED BY: Performed By: Car Can RDMS Attending: Linda Diaz MD Referred By: Walt BRISENO Location: [place] SERVICE(S) PROVIDED: UOBTVCER - Transvaginal 2nd Trimester - 46100 Cervical Length - [id number] INDICATIONS: 16 weeks gestation of Z3A.16 h/o [...] who have questions, please contact the health foster care therapist that requested your imaging first. Linda Diaz, Field Sales Specialist Electronically Signed Final Report 12/27/2023 01:45 pm E Jessica Briseno MD IMG OB ORDERAB LES * Hepatitis C Antibody (11/08/2023 3:33 PM EDT) Hepatitis C Antibody Negative Negative [facility] Blood 11/08/2023 3:33 PM EDT 11/08/2023 3:50 PM EDT Narrative Resulting Agency Comment Spec In Lab Lexii Berger CNM CHEMISTRY ORDERABLES Performing Organization Address [facility]/ZIP Co de Phone Number [facility] [place] [address] * HIV Screen, 4th Generation ([facility]/CGP/APD/NLH) (11/08/2023 3:33 PM EDT) HIV Ab/Ag Screen Negative Negative [facility] [...] Berger CNM CHEMISTRY ORDERABLES Performing Organization Address City/[facility]/ZIP Co de Phone Number [facility] [place] [address] * Batch And Furnace Manager Cytology Final Report (08/04/2020 10:25 AM EDT) Batch And Furnace Manager Cytology Final Report [id number] ? Location: 5L The signing pathologist has (i) examined the relevant preparation(s) for the specimen(s) and (ii) rendered or confirmed the diagnosis(es). . ? Batch And Furnace Manager Final DIAGNOSIS Infection and/or Reactive Repair Process Note: Reactive changes are present in the epithelial cells (benign cellular changes). This Pap test is negative for intraepithelial lesion or malignancy. (NILM) For consensus guidelines for the management of cervical cancer screening test results, please see: ?? http://www.asccp.o rg . Electronically signed by: ?Reji Sandoval MD Verified: ??08/16/2020 12:02 ??Cytopathologist Performed at: ??-[facility] Dept. of Pathology, [place], [place] HPV RESULTS HPV testing either not indicated or not requested by clinician. STATEMENT OF ADEQUACY Specimen submitted is satisfactory. Endocervical component present. CLINICAL INFORMATION HPV Option: ?Reflex HPV CT/NG Option: ?Yes Preparation: ? Liquid based Pap Specimen Source: ? Cervical/Endocervi shira LMP: ? IUD Hysterectomy: ?No : ?No : ?No I.U.D.: ?No Pelvic Radiation: ?No Hist Abnl Pap/Biopsy: ?No Prior WIRE LATHER Therapy: ? No Hist of HPV Vaccine: ? No ICD Diagnosis: ? Z12.4 Encounter for screening for malignant neoplasm of cervix Clinical Data, Significant Therapy and Clinical Impression ?? : ?_ This Pap Test has been evaluated with the assistance of the [employer] Pap Test Imaging System. Note: The Pap test is a screening test for cervical cancer with an inherent false-negative rate dependent upon several variables. For further information please contact the [facility] Laboratory. Reference: Rosy ORTIZ. Ski Patrol Officer of Pap Smear Results. In: Chelsey BS, Joshua HH, ed. The Pap Smear. [place]: Lázaro, 2002: 71-77. [facility] 08/04/2020 10:2 5 AM EDT Malena Hernandez APRN PATHOLOGY/CYT OLOGY ORDERABLES [facility] [place] [phone] from Last 3 Months or Most Recently [...] is based on Patients wishes. Care Teams Central Supply Nurse Relationship Specialty Start Date End Date Richard Rasheed MD [address] [place] [address] PCP - General Family Medicine 07/05/23
--- OUTSIDE RECORDS SUMMARY | 2024-02-21 14:43 | XMS_ITS | Encounter Summary ---
Author Organization [facility] Address [facility] [place] [address] Care Team Providers Care Art Psychotherapist Name Role Phone Richard Rasheed MD Primary Care Provider [phone] Encounter Details Date Type Department Care Team (Latest Contact Info) Description 02/07/2024 Travel Social History Tobacco Use Types Packs/Day Years Used Date Smoking Tobacco: Every Day Cigarettes 0.5 4 Smokeless Tobacco: Never Comments:5-6 cigarettes per day. Alcohol Use Standard Drinks/Week Comments Yes 0 (1 standard drink = 0.6 oz pur e alcohol) socially B1300 Health Literacy Answer Date Recor ded How often do you need to hav e someone help you when you read instructions, pamphlets, or other written material from your doctor or pharmacy? Never 10/12/2023 [facility] Utilities Answer Date Recorded In the past 12 months has [facility] [employer], gas, oil, or water [employer] threatened to shut off services in your [...] any time in the past 12 m [facility], were you homeless or living in a [...] 03/03/2024 3:00 PM [place] [address] Linda Diaz MD [facility] [place] [address] 03/03/2024 4:00 PM EST Routine [place] [address] Linda Diaz MD [facility] [place] [address] 03/03/2024 4:30 PM EST Scheduled View Only [place] [address] 03/12/2024 10:45 AM EST [place] [address] James Barth DO [facility] [place] [address] 05/23/2024 [place] [phone] Maite Malloy MD [facility] [place] [address] documented as of this encounter Visit Diagnoses Not on filedocumented in this encounter Care Teams Art Psychotherapist Relationship Specialty Start Date End Date Richard Rasheed MD [address] [place] [address] PCP - General Family Medicine 07/05/23 documented as of this encounter
--- OUTSIDE RECORDS SUMMARY | 2024-02-21 14:43 | XMS_ITS | Encounter Summary ---
Author Organization [facility] Address [facility] [place] [address] Care Team Providers Care Mold Cleaner Name Role Phone Richard Rasheed MD Primary Care Provider [phone] Reason for Referral * Consultation (Routine) - Authorized Specialty Diagnoses / Procedures Referred By Contwillow t Referred To Contact Endocrinology Diagnoses Hypothyroidism, postsurgical Maite Marks MD [facility] [place] [address] [facility] Endocrinology [address] [place] [phone] Referral ID Status Reason Start Date Expiration Date Visits Requested Visits Authorized [id number] Authorized Consult, Test & Treat 01/03/2024 01/02/2025 1 1 Encounter Details Date Type Department Care Team (Late st Contact Info) Description 01/03/2024 Orders Only Obstetrics [place] [address] Maite Marks MD [facility] [place] [address] Hypothyroidism, postsurgical Social History Tobacco [...] from your doctor or pharmacy? Never 10/12/2023 [facility] Utilities Answer Date Recorded In the past [...] any time in the past 12 m [facility], were you homeless or living in [...] 03/03/2024 3:00 PM EST Appointment Radiology at [place] [phone] Linda Diaz MD [facility] [place] [address] 03/03/2024 4:00 PM EST Routine Obstetrics and Gynecology at [place] [phone] Linda Diaz MD [facility] [place] [address] 03/03/2024 4:30 PM EST Scheduled View Only Obstetrics and Gynecology at [place] [phone] 03/12/2024 10:45 AM EST Office Visit Endocrinology at [place] [phone] James Barth DO [facility] [place] [address] 05/23/2024 Hospital [place] [address] Maite Malloy MD [facility] [place] [address] Scheduled Referrals Name Type Priority Associated Diagnoses Orde r Schedule Referral to Endocrinology Outpatient Referral Routine Hypothyroidism, postsurgical Ordered: 01/03/2024 documented as of this encounter Visit Diagnoses Diagnosis Hypothyroidism, postsurgical Postsurgical hypothyroidism documented in this encounter Care Teams Mold Cleaner Relationship Specialty Start Date End Date Richard Rasheed MD [address] [place] [address] PCP - General Family Medicine 07/05/23 documented as of this encounter
--- OUTSIDE RECORDS SUMMARY | 2024-02-21 14:43 | XMS_ITS | Encounter Summary ---
Author Organization [facility] Address [facility] [place] [address] Care Team Providers Care Screen Printing Inspector Name Role Phone Richard Rasheed MD Primary Care Provider [phone] Encounter Details Date Type Department Care Team (Latest Contact Info) Description 02/07/2024 9:00 AM EDT - 02/07/2024 11:59 PM EDT Hospital [place] [phone] Walt Bay MD [facility] OBSTETRICS [place] [address] History of delivery, currently Discharge Disposition: Home [...] from your doctor or pharmacy? Never 10/12/2023 [facility] Utilities Answer Date Recorded In the past 12 months has e [employer], gas, oil, or water [employer] threatened to shut off services in your [...] any time in the past 12 m [facility], were you homeless or [...] daily. 90 tablet 3 11/15/2023 vitamin with gnokirap-Fd-Saen-FA Tablet Take by mouth. calcium carbonate (OS-LEMUEL) 648 mg calcium tablet Take 650 mg by mouth 3 times daily (with meals). documented as of this encounter Plan of Treatment Upcoming Encounters Date Type Department Care Team (Late st Contact Info) Description 03/03/2024 3:00 PM EST Appointment Radiology at [place] [phone] Linda Diaz MD [facility] MATERNAL [place] [address] 03/03/2024 4:00 PM EST Routine Obstetrics and Gynecology at [place] [phone] Linda Diaz MD [facility] [place] [address] 03/03/2024 4:30 PM EST Scheduled View Only Obstetrics and Gynecology at [place] [phone] 03/12/2024 10:45 AM EST Office Visit Endocrinology at [place] [phone] James Barth DO [facility] [place] [address] 05/23/2024 Hospital [place] [address] Maite Malloy MD [facility] DR OBSTETRICS [place] [address] Scheduled Orders Name Type Priority Associated Diagnoses Orde r Schedule US OB Cervical Length Transvaginal Imaging Routine History of delivery, currently 1 Occurrences starting 02/07/2024 until 02/07/2024 documented as of this encounter Procedures Procedure Name Priority Date/Time Associated Diagnosis Comments US OB DETAILED MORPHOLOGY Routine 02/07/2024 10:39 AM EDT History of delivery, currently documented in this encounter Results * US OB Detailed Morphology (02/07/2024 10:39 AM EDT) WORKSTATION ID [id number] RAD Anatomical Region Laterality Modality Pelvis, Abdomen [...] who have questions, please contact the health childbirth and infant care teacher that requested your imaging first. ?Linda Diaz, Airplane Cabin Attendant Electronically Signed Corrected Final Report ??02/07/2024 01:35 pm Narrative 02/07/2024 10:53 AM EDT OBSTETRICS REPORT ? (Corrected Final 02/07/2024 01:35 pm) PATIENT INFO: ID #: ? [id number] ?: ??[birth year] (33 yrs)(F) Name: ? PREETHI Godoy ? Visit Date: 02/07/2024 10:23 am ? LOUISE- ? FRANK PERFORMED BY: Performed By: ? Aster Betancur RDMS Attending: ?Mathew LIMA, Lalita Diop Referred By: ?Walt BAY Location: ? [place] SERVICE(S) PROVIDED: [facility] - Detailed Morphology - [id number] ? [id number] UOBTVCER - Transvaginal ??2nd Trimester - ?88463 Cervical Length - [id number] INDICATIONS: 21 weeks gestation of ?Z3A.21 h/o [...] - 20.2 HC/AC: ? 1.17 ?1.06 - 05.10 FL/BPD: ?69.4 ??% ? 71 - 87 FL/AC: ? 22.6 ??% ? - Est. FW: ? 484 ??gm ?1 lb [...] SVC: ? Visualized Interventr. Septum: ?Visualized Cardiac [place]: ?Visualized Diaphragm: ? Visualized 3 Vessel View: [...] 02/07/2024 01:35 pm) PATIENT INFO: ID #: [id number] : [birth year] (33 yrs)(F) Name: PREETHI Godoy Visit Date: 02/07/2024 10:23 am MARIO MARIE PERFORMED BY: Performed By: Aster Betancur RDMS Attending: Lalita Carmona MD Referred By: Walt MOSLEY [facility] Location: [place] SERVICE(S) PROVIDED: [facility] - Detailed Morphology - [id number] UOBTVCER - Transvaginal 2nd Trimester - 09379 Cervical Length - [id number] INDICATIONS: 21 weeks gestation of Z3A.21 h/o [...] % 71 - 87 FL/AC: 22.6 % 20 - 24 Est. FW: 484 gm 1 [...] Visualized SVC: Visualized Interventr. Septum: Visualized Cardiac [place]: Visualized Diaphragm: Visualized 3 Vessel View: Visualized [...] who have questions, please contact the health childbirth and infant care teacher that requested your imaging first. Linda Diaz, Airplane Cabin Attendant Electronically Signed Corrected Final Report 02/07/2024 01:35 pm E Jessica Bay MD [facility] OB ORDERAB LES documented in this encounter Visit Diagnoses Diagnosis History of delivery, currently with history of pre-term labor documented in this encounter Care Teams Screen Printing Inspector Relationship Specialty Start Date End Date Richard Rasheed MD [address] [place] [address] PCP - General Family Medicine 07/05/23 documented as of this encounter
--- OUTSIDE RECORDS SUMMARY | 2024-02-21 14:43 | XMS_ITS | Encounter Summary ---
Author Organization [facility] Address [facility] [place] [address] Care Team Providers Care Candle Wrapper Name Role Phone Richard Rasheed MD Primary Care Provider [phone] Encounter Details Date Type Department Care Team (Late st Contact Info) Description 02/11/2024 Orders Only Obstetrics [place] [address] Linda Diaz MD [facility] [place] [address] Hypothyroidism, postsurgical Social History Tobacco Use Types [...] from your doctor or pharmacy? Never 10/12/2023 [facility] Utilities Answer Date Recorded In the past 12 months has [facility] [employer], gas, oil, or water company threatened [...] any time in the past 12 m [facility], were you homeless or [...] 03/03/2024 3:00 PM [place] [address] Linda Diaz MD [facility] [place] [address] 03/03/2024 4:00 PM EST Routine Obstetrics and Gynecology at [place] [phone] Linda Diaz MD [facility] [place] [address] 03/03/2024 4:30 PM EST Scheduled View Only Obstetrics [place] [address] 03/12/2024 10:45 AM EST Office [place] [phone] James Barth DO [facility] [place] [address] 05/23/2024 Hospital [place] [address] Maite Malloy MD [facility] DR OBSTET[place] [address] Scheduled Orders Name Type Priority Associated Diagnoses Orde r Schedule TSH Lab Routine Hypothyroidism, postsurgical Expected: 02/12/2024 (Approximate), Expires: 08/13/2024 T4, free Lab Routine Hypothyroidism, postsurgical Expected: 02/12/2024 (Approximate), Expires: 08/13/2024 documented as of this encounter Visit Diagnoses Diagnosis Hypothyroidism, postsurgical Postsurgical hypothyroidism documented in this encounter Care Teams Candle Wrapper Relationship Specialty Start Date End Date Richard Rasheed MD [address] [place] [address] PCP - General Family Medicine 07/05/23 documented as of this encounter
--- OUTSIDE RECORDS SUMMARY | 2024-02-21 14:43 | XMS_ITS | Encounter Summary ---
Author Organization [facility] Address [facility] [place] [address] Care Team Providers Care Eco Industrial Development Consultant Name Role Phone Richard Rasheed MD Primary Care Provider [phone] Encounter Details Date Type Department Care Team (Latest Contact Info) Description 12/27/2023 12:57 PM EDT - 12/27/2023 11:59 PM EDT Hospital [place] [phone] Walt Bay MD [facility] OBSTET[place] [address] History of delivery, currently Discharge Disposition: Home [...] doctor or pharmacy? Never 10/12/2023 [facility] Utilities Answer Date Recorded In the [...] any time in the past 12 m [facility], were you homeless or living [...] daily. 90 tablet 3 11/15/2023 vitamin with mrfuurho-Ti-Hoxh-FA Tablet Take by mouth. calcium carbonate (OS-LEMUEL) 648 mg calcium tablet Take 650 mg by mouth 3 times daily (with meals). documented as of this encounter Plan of Treatment Upcoming Encounters Date Type Department Care Team (Late st Contact Info) Description 03/03/2024 3:00 PM EST Appointment Radiology at [place] [phone] Linda iDaz MD [facility] [place] [address] 03/03/2024 4:00 PM EST Routine Obstetrics [place] [phone] Linda Diaz MD [facility] [place] [address] 03/03/2024 4:30 PM EST Scheduled View Only Obstetrics [place] [address] 03/12/2024 10:45 AM EST Office Visit Endocrinology at [place] [phone] James Barth DO [facility] [place] [address] 05/23/2024 Hospital [place] [phone] Maite Malloy MD [facility] DR OBSTETRICS [place] [address] documented as of this encounter Procedures Procedure Name Priority Date/Time Associated Diagnosis Comments US OB CERVICAL LENGTH TRANSVAGINAL Routine 12/27/2023 1:31 PM EDT History of delivery, currently documented in this encounter Results * US OB Cervical Length Transvaginal (12/27/2023 1:31 PM EDT) WORKSTATION ID [id number] [facility] Anatomical Region Laterality Modality Pelvis, Abdomen Ultrasound [...] who have questions, please contact the health palliative care coordinator that requested your imaging first. ? Linda Diaz, Wax Cutter Electronically Signed Final Report ?? 12/27/2023 01:45 pm Narrative 12/27/2023 1:45 PM EDT OBSTETRICS REPORT ?(Signed Final 12/27/2023 01:45 pm) PATIENT INFO: ID #: ? [id number] ?: ??[birth year] (33 yrs)(F) Name: ? SORCHA E ? Visit Date: 12/27/2023 01:34 pm ? LOUISE- ? FRANK PERFORMED BY: Performed By: ? Car Can RDMS Attending: ?Emily LIMA, Linda Figueroa Referred By: ?E MELANY BAY Location: ? [place] SERVICE(S) PROVIDED: UOBTVCER - Transvaginal ??2nd Trimester - ?38933 Cervical Length - [id number] INDICATIONS: 16 weeks gestation of ?Z3A.16 h/o [...] 12/27/2023 01:45 pm) PATIENT INFO: ID #: [id number] : [birth year] (33 yrs)(F) Name: PREETHI Godoy Visit Date: 12/27/2023 01:34 pm SAMANTHA MARIE PERFORMED BY: Performed By: Car Can RDMS Attending: Linda Diaz MD Referred By: Walt BAY Location: [place] SERVICE(S) PROVIDED: UOBTVCER - Transvaginal 2nd Trimester - 93778 Cervical Length - [id number] INDICATIONS: 16 weeks gestation of Z3A.16 h/o [...] who have questions, please contact the health palliative care coordinator that requested your imaging first. Linda Diaz, Wax Cutter Electronically Signed Final Report 12/27/2023 01:45 pm E Melany Bay MD IMG US OB ORDERAB LES documented in this encounter Visit Diagnoses Diagnosis History of delivery, currently with history of pre-term labor documented in this encounter Care Teams Eco Industrial Development Consultant Relationship Specialty Start Date End Date Richard Rasheed MD [address] [place] [address] PCP - General Family Medicine 07/05/23 documented as of this encounter
--- OUTSIDE RECORDS SUMMARY | 2024-02-21 14:43 | XMS_ITS | Encounter Summary ---
Author Organization [facility] [place] [address] Care Team Providers Care Professor Of Geography Name Role Phone Richard Rasheed MD Primary Care Provider [phone] Encounter Details Date Type Department Care Team (Latest Contact Info) Description 12/27/2023 3:55 PM EDT Laboratory Appointment Lab [address] [place] [address] care in first trimester; Hypothyroidism, [...] from your doctor or pharmacy? Never 10/12/2023 [facility] Utilities Answer Date Recorded In the past 12 months has [facility] [employer], oil, or water [email or web address] threatened to shut off services in your [...] any time in the past 12 m [facility], were you homeless or living [...] 03/03/2024 3:00 PM EST Appointment [place] [phone] Linda Diaz MD [facility] [place] [address] 03/03/2024 4:00 PM EST Routine Obstetrics [place] [address] Linda Diaz MD [facility] DR [place] [address] 03/03/2024 4:30 PM EST Scheduled View Only Obstetrics [place] [phone] 03/12/2024 10:45 AM EST Office Visit [place] [phone] James Barth DO [facility] [place] [address] 05/23/2024 Hospital [place] [phone] Maite Malloy MD [facility] DR OBSTETRICS [place] [address] documented as of this encounter Procedures Procedure Name Priority Date/Time Associated Diagnosis Comments TSH CASCADE Routine 12/27/2023 2:54 PM EDT Hypothyroidism, postsurgical T4, FREE Routine 12/27/2023 2:54 PM EDT Hypothyroidism, postsurgical documented in this encounter Results * (ABNORMAL) T4, free (12/27/2023 2:54 PM EDT) Free T4 0.51(L) 0.93 - 1.70 ng/dL 12/27/2023 4:53 PM EDT [facility] Comment: Reference Interval (ng/dL): ?? Females: ? First Trimester: 0.97-1.68 ? Second Trimester: 0.77-1.51 ? Third Trimester: 0.77-1.49 Blood VENOUS BLOOD SPECIMEN / Unknown Venipuncture / Unknown 12/27/2023 2:54 PM EDT 12/27/2023 2:54 PM EDT Maite Marks MD CHEMISTRY ORDERABLES Performing Organization Address [facility] Co de Phone Number [facility] [place] [place] [address] * (ABNORMAL) TSH [place] (12/27/2023 2:54 PM EDT) Thyroid Stimulating Hormone 84.50(H) 0.27 - 4.20 mcIU/mL 12/27/2023 4:13 PM EDT [facility] Comment: Reference Interval (mcIU/mL): ?? Females: ? First Trimester: 0.23-3.88 ? Second Trimester: 0.22-3.90 ? Third Trimester: 0.44-4.66 Blood VENOUS BLOOD SPECIMEN / Unknown Venipuncture / Unknown 12/27/2023 2:54 PM EDT 12/27/2023 2:54 PM EDT Maite Marks MD CHEMISTRY ORDERABLES Performing Organization Address City/[facility]/ZIP Co de Phone Number [facility] [place] [address] documented in this encounter Visit Diagnoses Diagnosis care in first trimester Hypothyroidism, postsurgical Postsurgical hypothyroidism documented in this encounter Care Teams Professor Of Geography Relationship Specialty Start Date End Date Richard Rasheed MD [address] [place] [address] PCP - General Family Medicine 07/05/23 documented as of this encounter
--- OUTSIDE RECORDS SUMMARY | 2024-02-21 14:43 | XMS_ITS | Encounter Summary ---
Author Organization [facility] Address [facility] [address] Care Team Providers Care Agronomy Specialist Name Role Phone Richard Rasheed MD Primary Care Provider [phone] Encounter Details Date Type Department Care Team [...] doctor or pharmacy? Never 10/12/2023 [facility] Utilities Answer Date Recorded In the past 12 months has e [employer], gas, oil, or water [employer] threatened to shut off services in your [...] 03/03/2024 3:00 PM [place] [phone] Linda Diaz MD [facility] [place] [address] 03/03/2024 4:00 PM EST Routine Obstetrics [place] [phone] Linda Diaz MD [facility] [place] [address] 03/03/2024 4:30 PM EST Scheduled View Only Obstetrics and Gynecology at [place] [phone] 03/12/2024 10:45 AM EST Office [place] [address] James Barth DO [facility] [place] [address] 05/23/2024 [place] [address] Maite Malloy MD [facility] DR [place]STET[place] [address] documented as of this encounter Visit Diagnoses Not on filedocumented in this encounter Care Teams Agronomy Specialist Relationship Specialty Start Date End Date Richard Rasheed MD [address] [place] [address] PCP - General Family Medicine 07/05/23 documented as of this encounter
--- OUTSIDE RECORDS SUMMARY | 2024-02-21 14:43 | XMS_ITS | Encounter Summary ---
Author Organization [facility] Address [facility] [place] [address] Care Team Providers Care Roller Hand Name Role Phone Richard Rasheed MD Primary Care Provider [phone] Encounter Details Date Type Department Care Team (Late st Contact Info) Description 02/07/2024 10:15 AM EDT Routine Obstetrics [place] [phone] Linda Diaz MD [facility] [place] [address] GA: 21w4d Social History Tobacco Use Types Packs/Day Years [...] your doctor or pharmacy? Never 10/12/2023 [facility] Utilities Answer Date Recorded In the past 12 months has e [employer], gas, oil, or water [employer] threatened to shut off services in your [...] any time in the past 12 m [facility], were you homeless or living [...] Pressure 112/70 02/07/2024 10:50 AM EDT Pulse - - Temperature - - Respiratory Rate - - Oxygen Saturation - - Inhaled Oxygen Concentration - - Weight 87.8 kg (193 lb 8 oz) 02/07/2024 10:50 AM EDT Height - - Body Mass Index 29.42 04/26/2021 11:20 AM EST documented in this encounter Progress Notes * Linda Diaz MD - 02/07/2024 10:15 AM EDT GLORIA 22w0d (lives in [facility] but plans care here) Feels well. No ctx vb or lof. BP 112/70 Wt 87.8 kg (193 lb 8 oz) LMP 08/17/2023 BMI 29.42 kg/m?? Detailed morph today: Single intrauterine with a gestational age of 22w 0d based on Clinical ZAYDA. Composite age based on the current ultrasound alone is 22w 2d. Current growth parameters are consistent with prior dating indicating normal growth. Amniotic fluid volume is subjectively normal for gestational age. Transvaginal ultrasound examination was performed to evaluate [...] performed and no structural abnormalities are noted. Issues History of PTB at 31w: CL today reassuring. No need for further CL assessment. Discussed that basedon lack of cervical shortening, risk of recurrent PTB is lower that risk based on history alone. Hypothyroidism (s/p thyroidectomy) with inadequate control: this history was unclear today but review of the record suggests the indication for surgery was not malignancy. (Endocrine note from ays hypothyroidism post surgery with benign findings. (Note-- [...] if it helps improve her TSH trends. TSH was very high at 127 in Dec 2020 and PCP already switched levothyroxine to brand name Synthroid 200 mcg qd (same dose) with improvement. Will get more recent lab from outside and recheck lab soon at [facility] lab. If TSH remains high, we may add cytomel short-acting to suppress TSH down or switch synthroid to Tirosint but the latter will be more costly and will try to improve her GI absorption for synthroid first. Will try dietary changes and taking on empty stomach while awaiting endo consult. Stressed compliance. Repeat TFTs now. 3. PNC-- up to date. Ordered /3\ labs for ~4-6w 4 possible succenturiate lobe as above- US ordered. documented in this encounter Miscellaneous Notes * Assessment & Plan Note - Linda Diaz MD - 02/07/2024 1:40 PM EDT Associated Problem(s): Hypothyroidism, postsurgical Hypothyroidism (s/p thyroidectomy): this history was unclear [...] from outside and recheck lab soon at [facility] lab. If TSH remains high, we may add cytomel short-acting to suppress TSH down or switch synthroid to Tirosint but the latter will be more costly and will try to improve her GI absorption for synthroid first. * Assessment & Plan Note - Linda Diaz MD - 02/07/2024 1:39 PM EDT Associated Problem(s): Premature delivery Serial CL with no shortening /1\ Ucx no ASB Precautions reviewed. documented in this encounter Plan of Treatment Upcoming Encounters Date Type Department Care Team (Late st Contact Info) Description 03/03/2024 3:00 PM [place] [phone] Linda Diaz MD [facility] [place] [address] 03/03/2024 4:00 PM EST Routine Obstetrics [place] [address] Linda Diaz MD [facility] DR [place]NAL [place] [address] 03/03/2024 4:30 PM EST Scheduled View Only Obstetrics [place] [phone] 03/12/2024 10:45 AM EST Office [place] [phone] James Barth DO [facility] [place] [address] 05/23/2024 [place] [phone] Maite Malloy MD [facility] DR OBSTETRICS [place] [address] Scheduled Orders Name Type Priority Associated Diagnoses Orde r Schedule US OB Follow Up Imaging Routine History of delivery, currently Expected: 03/09/2024 (Approximate), Expires: 09/08/2024 Gestational Diabetes Screen Lab Routine History of delivery, currently Expected: 03/09/2024 (Approximate), Expires: 09/08/2024 Syphilis Screening Antibody with reflex RPR Lab Routine History of delivery, currently Expected: 03/09/2024, Expires: 09/08/2024 Hemogram Lab Routine History of delivery, currently Expected: 03/09/2024 (Approximate), Expires: 05/09/2024 documented as of this encounter Visit Diagnoses Diagnosis History of delivery, currently with history of pre-term labor Premature delivery Early onset of delivery, unspecified as to episode of care Hypothyroidism, postsurgical Postsurgical hypothyroidism Anti-Estuardo A&B antibodies Other and unspecified nonspecific immunological findings documented in this encounter Care Teams Roller Hand Relationship Specialty Start Date End Date Richard Rasheed MD [address] [place] [address] PCP - General Family Medicine 07/05/23 documented as of this encounter
--- OUTSIDE RECORDS SUMMARY | 2024-02-21 14:44 | XMS_ITS | Encounter Summary ---
Author Organization [facility] [place] [address] Care Team Providers Care Director Of Reservations Name Role Phone Richard Rasheed MD Primary Care Provider [phone] Encounter Details Date Type Department Care Team (Late st Contact Info) Description 07/22/2023 Telephone Obstetrics [place] [address] Heavenly Blackmon MD [facility] DR OBSTETRICS [place] [address] Social History Tobacco Use Types Packs/Day Years [...] 03/03/2024 3:00 PM EST Appointment Radiology at [address] Linda Diaz MD [facility] [place] [address] 03/03/2024 4:00 PM EST Routine Obstetrics and Gynecology at [address] Linda Diaz MD [facility] [place] [address] 03/03/2024 4:30 PM EST Scheduled View Only Obstetrics and Gynecology at [address] 03/12/2024 10:45 AM EST Office Visit Endocrinology at [address] James Barth DO [facility] [place] [address] 05/23/2024 Hospital [place] [address] Maite Malloy MD [facility] DR OBSTETRICS [place] [address] documented as of this encounter Visit Diagnoses Not on filedocumented in this encounter Care Teams Director Of Reservations Relationship Specialty Start Date End Date Richard Rasheed MD [address] [place] [address] PCP - General Family Medicine 07/05/23 documented as of this encounter
--- OUTSIDE RECORDS SUMMARY | 2024-02-21 14:44 | XMS_ITS | Encounter Summary ---
Author Organization [facility] Address [facility] [place] [address] Care Team Providers Care Paper And Pulp Mill Operator Name Role Phone Valencia Adhikari APRN Primary Care Provider [phone] Encounter Details Date Type Department Care Team (Latest Contact Info) Description 09/22/2021 11:00 AM EDT TH Visit (TeleHealth) Psychiatry [place] [phone] Lisa Dickens, PhD [facility] [place] [address] Unspecified mood (affective) disorder; Borderline personality disorder [...] EDT INDIVIDUAL THERAPY PROGRESS NOTE CPT CODE 58178 LOCATION: Telehealth visit. Andree SinghTamara gave permission for and was seen for today's appointment with a Telehealth visit. During this visit she was located in her apartment in [place], [place]. Andree Hummel is aware that for any urgent matter she can can contact her regional mental health crisis services. For patients located in [place]: www.[employer] or text/call . Forpatients located in [place]: [email or web address]. To reach their [facility] mental health clinician or the outpatient Department of Psychiatry clinics,patient can call [phone]. SESSION DURATION: 25 minutes ATTENDEES: Patient PRIMARY [...] 03/03/2024 3:00 PM EST Appointment Radiology at [place] [phone] Linda Diaz MD [facility] [place] [address] 03/03/2024 4:00 PM EST Routine Obstetrics and Gynecology at [place] [phone] Linda Diaz MD [facility] [place] [address] 03/03/2024 4:30 PM EST Scheduled View Only Obstetrics and Gynecology at [place] [phone] 03/12/2024 10:45 AM EST Office Visit Endocrinology at [place] [phone] James Barth DO [facility] [place] [address] 05/23/2024 [place] [address] Maite Malloy MD [facility] DR OBSTETRICS [place] [address] documented as of this encounter Visit Diagnoses Diagnosis Unspecified mood (affective) disorder Borderline personality disorder documented in this encounter Care Teams Paper And Pulp Mill Operator Relationship Specialty Start Date End Date Valencia Adhikari APRN [address] [place] [address] PCP - General 04/21/14 07/04/23 documented as of this encounter
--- OUTSIDE RECORDS SUMMARY | 2024-02-21 14:44 | XMS_ITS | Encounter Summary ---
Author Organization [facility] [place] [place] [address] Care Team Providers Care Development Architect Name Role Phone Richard Rasheed MD Primary Care Provider [phone] Encounter Details Date Type Department Care Team (Late st Contact Info) Description 11/29/2023 Telephone [place] [phone] Suzanne Bhatti, [facility] OBSTETRICS & [place] [address] Social History Tobacco Use Types Packs/Day Years [...] your doctor or pharmacy? Never 10/12/2023 [facility] Utilities Answer Date Recorded In the past 12 months has e [employer], gas, oil, or water [employer] threatened to shut off services in your [...] time in the past 12 m [facility], were you homeless or living in a intermediate (including now)? Yes 10/12/2023 Estimated Date of [...] 03/03/2024 3:00 PM EST Appointment Radiology at [address] Linda Diaz MD [facility] MATERNAL [place] [address] 03/03/2024 4:00 PM EST Routine Obstetrics and Gynecology at [address] Linda Diaz MD [facility] MATERNAL [place] [address] 03/03/2024 4:30 PM EST Scheduled View Only Obstetrics and Gynecology at [place] [address] 03/12/2024 10:45 AM EST Office Visit Endocrinology at [place] [address] James Barth DO [facility] [place] [address] 05/23/2024 Hospital [place] [address] Maite Malloy MD [facility] DR OBSTETRICS [place] [address] documented as of this encounter Visit Diagnoses Not on filedocumented in this encounter Care Teams Development Architect Relationship Specialty Start Date End Date Richard Rasheed MD [address] [place] [address] PCP - General Family Medicine 07/05/23 documented as of this encounter
--- OUTSIDE RECORDS SUMMARY | 2024-02-21 14:44 | XMS_ITS | Encounter Summary ---
Author Organization [facility] Address [facility] [place] [address] Care Team Providers Care Notching Press Operator Name Role Phone Valencia Adhikari APRN Primary Care Provider [phone] Encounter Details Date Type Department Care Team (Latest Contact Info) Description 09/01/2021 11:00 AM EDT TH Visit (TeleHealth) Psychiatry [place] [address] Lisa Dickens, PhD [facility] [place] [address] Borderline personality disorder; Unspecified mood (affective) disorder [...] EDT INDIVIDUAL THERAPY PROGRESS NOTE CPT CODE 29173 LOCATION: Telehealth visit. Andree SinghTamara gave permission for and was seen for today's appointment with a Telehealth visit. During this visit she was located in her apartment in [place], [place]. Andree Hummel is aware that for any urgent matter she can can contact her regional mental health crisis services. For patients located in [place]: www.[email or web address] or text/call . Forpatients located in [place]: [email or web address]. To reach their [facility] mental health clinician or the outpatient Department of Psychiatry clinics,patient can call [phone]. SESSION DURATION: 20 minutes ATTENDEES: Patient PRIMARY COMPLAINT/DIAGNOSIS: Borderline Personality Disorder; Unspecified Mood Disorder; R/O PTSD TREATMENT MODALITY: DBT PATIENT REPORT OF CURRENT FUNCTIONING/CHANGES: Patient reported: -doing better, the sun helps, gardening with son -work has been a joke--they cut her hours and haven't given them back, having to use sick time and PTO to fill in paycheck -trip to [place] at end of September, feels weird about it all, hasn't seen this extended family in 15 years -can't afford the gas to go to the [facility], had to cancel appointment scheduled for tomorrow -having problems with landlord -going over to closest friends today, then going on a date CENTRAL THEME OF SESSION: coping skills IN-SESSION PROCEDURES: I provided empathic listening and validation. I encouraged patient to contact [facility] and explain that she cannot [...] 03/03/2024 3:00 PM EST Appointment Radiology at [address]1000 Linda Diaz MD [facility] [place] [address] 03/03/2024 4:00 PM EST Routine Obstetrics and Gynecology at [place] [phone] Linda Diaz MD [facility] [place] [address] 03/03/2024 4:30 PM EST Scheduled View Only Obstetrics and Gynecology at [place] [phone] 03/12/2024 10:45 AM EST Office Visit Endocrinology at [address]1000 James Barth DO [facility] [place] [address] 05/23/2024 Hospital [facility] [place] [address] Maite Malloy MD [facility] OBSTETRICS [place] [address] documented as of this encounter Visit Diagnoses Diagnosis Borderline personality disorder Unspecified mood (affective) disorder documented in this encounter Care Teams Notching Press Operator Relationship Specialty Start Date End Date Valencia Adhikari APRN [address] [place] [address] PCP - General 04/21/14 07/04/23 documented as of this encounter
--- OUTSIDE RECORDS SUMMARY | 2024-02-21 14:44 | XMS_ITS | Encounter Summary ---
Author Organization [facility] Address [facility] [place] [address] Care Team Providers Care Promotion Officer Name Role Phone Valencia Adhikari APRN Primary Care Provider [phone] Encounter Details Date Type Department Care Team (Late st Contact Info) Description 04/13/2023 Orders Only Obstetrics [place] [address] Jody Wood, RN Vaginal bleeding [...] 03/03/2024 3:00 PM EST Appointment [place] [address] Linda Diaz MD [facility] [place] [address] 03/03/2024 4:00 PM EST Routine Obstetrics [place] [address] Linda Diaz MD [facility] [place] [address] 03/03/2024 4:30 PM EST Scheduled View Only Obstetrics and Gynecology at [place] [phone] 03/12/2024 10:45 AM EST Office Visit Endocrinology at [place] [phone] James Barth DO [facility] [place] [address] 05/23/2024 Hospital Encounter Birthing [place] [phone] Maite Malloy MD [facility] DR OBSTETRICS [place] [address] documented as of this encounter Visit Diagnoses Diagnosis Vaginal bleeding in , first trimester documented in this encounter Care Teams Promotion Officer Relationship Specialty Start Date End Date Valencia Adhikari APRN [address] [place] [address] PCP - General 04/21/14 07/04/23 documented as of this encounter
--- OUTSIDE RECORDS SUMMARY | 2024-02-21 14:44 | XMS_ITS | Encounter Summary ---
Author Organization [facility] Address [facility] [place] [address] Care Team Providers Care Green Building Design Specialist Name Role Phone Richard Rasheed MD Primary Care Provider [phone] Encounter Details Date Type Department Care Team [...] In the past 12 months has e [employer], gas, oil, or water [employer] threatened to shut off services in your [...] 03/03/2024 3:00 PM EST [place] [phone] Linda Diaz MD [facility] [place] [address] 03/03/2024 4:00 PM EST Routine Obstetrics [place] [phone] Linda Diaz MD [facility] [place] [address] 03/03/2024 4:30 PM EST Scheduled View Only Obstetrics and Gynecology at [place] [phone] 03/12/2024 10:45 AM EST Office [place] [address] James Barth DO [facility] [place] [address] 05/23/2024 [place] [address] Maite Malloy MD [facility] DR OBSTETRICS [place] [address] documented as of this encounter Visit Diagnoses Not on filedocumented in this encounter Care Teams Green Building Design Specialist Relationship Specialty Start Date End Date Richard Rasheed MD [address] [place] [address] PCP - General Family Medicine 07/05/23 documented as of this encounter
--- OUTSIDE RECORDS SUMMARY | 2024-02-21 14:44 | XMS_ITS | Encounter Summary ---
Author Organization [facility] [place] [address] Care Team Providers Care Personal Service Workers Name Role Phone Valencia Adhikari APRN Primary Care Provider [phone] Encounter Details Date Type Department Care Team (Late st Contact Info) Description 04/13/2023 Telephone Obstetrics [place] [address] Jody Wood RN Social History [...] Trimester Bleeding Per Protocol criteria ( Protocol #31725) meets criteria: Patient is less than 7 [...] requesting to have these labs drawn at [facility]. Will ssend these electronically. * Telephone Encounter - Jody Wood RN - 04/13/2023 1:28 PM EST ----- Message from Corine Alexander sent at 04/13/2023 1:00 PM EST ----- Regarding: spotting Caller's name: Andree Mcdonald Call back #: [phone] Patient's provider/team: EVANGELISTA 05/09 Reason for call: Slight spotting? documented in this encounter Plan of Treatment Upcoming Encounters Date Type Department Care Team (Late st Contact Info) Description 03/03/2024 3:00 PM EST [place]ointment [place] [address] Linda Diaz MD [facility] DR MATERNAL [place] [address] 03/03/2024 4:00 PM EST Routine Obstetrics [place] [address] Linda Diaz MD [facility] [place] [address] 03/03/2024 4:30 PM EST Scheduled View Only Obstetrics and Gynecology at [place] [phone] 03/12/2024 10:45 AM EST Office Visit Endocrinology at [place] [phone] James Barth DO [facility] [place] [address] 05/23/2024 Hospital Encounter Birthing [place] [phone] Maite Malloy MD [facility] DR [place] [address] documented as of this encounter Visit Diagnoses Not on filedocumented in this encounter Care Teams Personal Service Workers Relationship Specialty Start Date End Date Valencia Adhikari APRN [address] [place] [address] PCP - General 04/21/14 07/04/23 documented as of this encounter
--- OUTSIDE RECORDS SUMMARY | 2024-02-21 14:44 | XMS_ITS | Encounter Summary ---
Author Organization [facility] Address [facility] [place] [address] Care Team Providers Care Vending Machine Mechanic Name Role Phone Richard Rasheed MD Primary Care Provider [phone] Encounter Details Date Type Department Care Team [...] doctor or pharmacy? Never 10/12/2023 [facility] Utilities Answer Date Recorded In the past 12 months has e [employer], gas, oil, or water [employer] threatened to shut off services in your [...] 03/03/2024 3:00 PM EST [place] [phone] Linda Diaz MD [facility] [place] [address] 03/03/2024 4:00 PM EST Routine Obstetrics [place] [phone] Linda Diaz MD [facility] [place] [address] 03/03/2024 4:30 PM EST Scheduled View Only Obstetrics and Gynecology at [place] [phone] 03/12/2024 10:45 AM EST Office Visit [place] [address] James Barth DO [facility] [place] [address] 05/23/2024 [place] [address] Maite Malloy MD [facility] DR OBSTETRICS [place] [address] documented as of this encounter Visit Diagnoses Not on filedocumented in this encounter Care Teams Vending Machine Mechanic Relationship Specialty Start Date End Date Richard Rasheed MD [address] [place] [address] PCP - General Family Medicine 07/05/23 documented as of this encounter
--- OUTSIDE RECORDS SUMMARY | 2024-02-21 14:44 | XMS_ITS | Encounter Summary ---
Author Organization [facility] Address [facility] [place] [address] Care Team Providers Care Bacteriologist Dairy Name Role Phone Valencia Adhikari APRN Primary Care Provider [phone] Encounter Details Date Type Department Care Team (Late st Contact Info) Description 10/03/2021 Notes Only Psychiatry [place] [phone] Crispin Fuller MD [facility] [place] [address] Social History Tobacco Use Types Packs/Day Years [...] 03/03/2024 3:00 PM EST Appointment [place] [address] [facility] [place] [address] 03/03/2024 4:00 PM EST Routine Obstetrics [place] [phone] Linda Diaz MD [facility] [place] [address] 03/03/2024 4:30 PM EST Scheduled View Only Obstetrics [place] [address] 03/12/2024 10:45 AM EST Office Visit [place] [address] [facility] [place] [address] 05/23/2024 [place] [address] [facility] OBSTETR[place] [address] documented as of this encounter Visit Diagnoses Not on filedocumented in this encounter Care Teams Bacteriologist Dairy Relationship Specialty Start Date End Date Valencia Adhikari APRN [address] [place] [address] PCP - General 04/21/14 07/04/23 documented as of this encounter
--- OUTSIDE RECORDS SUMMARY | 2024-02-21 14:44 | XMS_ITS | Encounter Summary ---
Author Organization [facility] Address [facility] [place] [address] Care Team Providers Care Product Tester Fiberglass Name Role Phone Richard Rasheed MD Primary [...] from your doctor or pharmacy? Never 10/12/2023 [facility] Utilities Answer Date Recorded In the past 12 months has [employer], gas, oil, or water [employer] threatened to shut off services in your [...] 03/03/2024 3:00 PM [place] [phone] Linda Diaz MD [facility] [place] [address] 03/03/2024 4:00 PM EST Routine Obstetrics [place] [address] Linda Diaz MD [facility] [place] [address] 03/03/2024 4:30 PM EST Scheduled View Only Obstetrics and Gynecology at [place] [phone] 03/12/2024 10:45 AM EST Office [place] [address] James Barth DO [facility] [place] [address] 05/23/2024 Hospital [place] [address] Maite Malloy MD [facility] DR [place] [address] documented as of this encounter Visit Diagnoses Not on filedocumented in this encounter Care Teams Product Tester Fiberglass Relationship Specialty Start Date End Date Richard Rasheed MD [address] [place] [address] PCP - General Family Medicine 07/05/23 documented as of this encounter
--- OUTSIDE RECORDS SUMMARY | 2024-02-21 14:44 | XMS_ITS | Encounter Summary ---
Author Organization [facility] [place] [address] Care Team Providers Care Information Security Name Role Phone Valencia Adhikari APRN Primary Care Provider [phone] Encounter Details Date Type Department Care Team (Late st Contact Info) Description 10/10/2021 Telephone [place] [address] Peg Cast Social History Tobacco [...] 03/03/2024 3:00 PM EST Appoint[place] [address] Linda Diaz MD [facility] [place] [address] 03/03/2024 4:00 PM EST Routine Obstetrics and Gynecology at [place] [phone] Linda Diaz MD [facility] [place] [address] 03/03/2024 4:30 PM EST Scheduled View Only Obstetrics [place] [phone] 03/12/2024 10:45 AM EST Office Visit Endocrinology at [place] [phone] James Barth DO [facility] [place] [address] 05/23/2024 Hospital Encounter Birthing [place] [phone] Maite Malloy MD [facility] DR [place] [address] documented as of this encounter Visit Diagnoses Not on filedocumented in this encounter Care Teams Information Security Relationship Specialty Start Date End Date Valencia Adhikari APRN [address] [place] [address] PCP - General 04/21/14 07/04/23 documented as of this encounter
--- OUTSIDE RECORDS SUMMARY | 2024-02-21 14:44 | XMS_ITS | Encounter Summary ---
Author Organization [facility] [place] [address] Care Team Providers Care Cellars Supervisor Name Role Phone Richard Rasheed MD Primary Care Provider Encounter Details Date Type Department Care Team (Late st Contact Info) Description 11/20/2023 Telephone Obstetrics [place] [phone] Suzanne Bhatti, [facility] OBSTETRICS & [place] [address] Social History Tobacco Use Types Packs/Day Years [...] doctor or pharmacy? Never 10/12/2023 [facility] Utilities Answer Date Recorded In the past 12 months has [facility] [employer], gas, oil, or water [employer] threatened to shut off services in your [...] time in the past 12 m [facility], were you homeless or living in a fpc (including now)? Yes 10/12/2023 Estimated Date of [...] Time Provider Department Center 12/27/2023 11:30 AM [facility] US ROOM 1 US [facility] Rad 12/27/2023 1:00 PM Lalita Carmona MD [facility] [address] 01/10/2024 9:15 AM [facility] DB US ROOM 1 [facility] Rad 01/10/2024 10:15 AM Linda Diaz MD [facility] [address] 01/24/2024 9:00 AM MH DB US ROOM 1 US [facility] Rad 01/24/2024 10:15 AM Walt Bay MD [facility] [address] 02/07/2024 9:15 AM [facility] DB US ROOM 1 US [facility] Rad 02/07/2024 10:15 AM Vernon Mera MD [facility] [address] Suzanne Bhatti DO, PGY-3 Obstetrics and Gynecology 11/20/23 documented in this encounter Plan of Treatment Upcoming Encounters Date Type Department Care Team (Late st Contact Info) Description 03/03/2024 3:00 PM EST Appoint[place] [phone] Linda Diaz MD [facility] MATERNAL [place] [address] 03/03/2024 4:00 PM EST Routine Obstetrics [place] [phone] Linda Diaz MD [facility] MATERNAL [place] [address] 03/03/2024 4:30 PM EST Scheduled View Only Obstetrics [place] [address] 03/12/2024 10:45 AM EST Office Visit [place] [address] James Barth DO [facility] DR ENDOCRINOLOGY DEPT [place], [place] [phone] 05/23/2024 Hospital [place] [address] Maite Malloy MD [facility] DR OBSTETRICS [place] [address] documented as of this encounter Visit Diagnoses Not on filedocumented in this encounter Care Teams Cellars Supervisor Relationship Specialty Start Date End Date Richard Rasheed MD [address] [place] [address] PCP - General Family Medicine 07/05/23 documented as of this encounter
--- OUTSIDE RECORDS SUMMARY | 2024-02-21 14:44 | XMS_ITS | Encounter Summary ---
Author Organization [facility] Address [facility] [place] [address] Care Team Providers Care Lpn Name Role Phone Richard Rasheed MD Primary Care Provider [phone] Encounter Details Date Type Department Care Team (Latest Contact Info) Description 11/08/2023 1:29 PM EDT - 11/08/2023 11:59 PM EDT Hospital Encounter [place] [phone] Paul Mendez MD [facility] OBSTETRICS [place] [address] care in first trimester Discharge Disposition: Home [...] from your doctor or pharmacy? Never 10/12/2023 [facility] Utilities Answer Date Recorded In the past 12 months has e [employer], gas, oil, or water company threatened to [...] time in the past 12 m [facility], were you homeless or living [...] Refills Start Date End Date vitamin with airurjkm-We-Umiw-FA Tablet Take by mouth. calcium carbonate (OS-LEMUEL) [...] 03/03/2024 3:00 PM EST Appointment [place] [address] Linda Diaz MD [facility] MATERNAL [place] [address] 03/03/2024 4:00 PM EST Routine Obstetrics [place] [phone] Linda Diaz MD [facility] MATERNAL [place] [address] 03/03/2024 4:30 PM EST Scheduled View Only Obstetrics [place] [phone] 03/12/2024 10:45 AM EST Office Visit Endocrinology at [place] [phone] James Barth DO [facility] [place] [address] 05/23/2024 Hospital Encounter Birthing Betito [facility] [place] [phone] Maite Malloy MD [facility] DR OBSTETRICS [place] [address] documented as of this encounter Procedures Procedure Name Priority Date/Time Associated Diagnosis Comments US OB VIABILITY TRANSABDOMINAL Routine 11/08/2023 1:48 PM EDT care in first trimester documented in this encounter Results * US OB Viability Transabdominal (11/08/2023 1:48 PM EDT) DLS WORKSTATION ID [id number] RAD Anatomical Region Laterality Modality Pelvis, Abdomen [...] who have questions, please contact the health client care manager that requested your imaging first. ?Latoya Marquis, [facility] Workers Compensation Coordinator Electronically Signed Final Report ?? 11/08/2023 02:09 pm Narrative 11/08/2023 2:10 PM EDT OBSTETRICS REPORT ? (Signed Final 11/08/2023 02:09 pm) PATIENT INFO: ID #: ? [id number] ?: ??[birth year] (33 yrs)(F) Name: ? PREETHI Godoy ? Visit Date: 11/08/2023 01:46 pm ? LOUISE- ? FRANK PERFORMED BY: Attending: ?Kandis LIMA, Latoya Figueroa Resident: ? Abdi LIMA, [facility] Performed By: ? Darwin Fleming RDMS Referred By: ?PAUL MENDEZ Location: ? [place] SERVICE(S) PROVIDED: UOBVIB - ??Viability <14 weeks - Transabdominal - ?[id number] INDICATIONS: 9 weeks gestation of ?Z3A.09 at [...] 11/08/2023 02:09 pm) PATIENT INFO: ID #: [id number] : [birth year] (33 yrs)(F) Name: PREETHI Godoy Visit Date: 11/08/2023 01:46 pm MARIO MARIE PERFORMED BY: Attending: Latoya Marquis MD Resident: Abdi LIMA, [facility] Performed By: Darwin Fleming RDMS Referred By: PAUL MENDEZ Location: [place] SERVICE(S) PROVIDED: UOBVIB - Viability <14 weeks - Transabdominal - [id number] INDICATIONS: 9 weeks gestation of Z3A.09 at [...] who have questions, please contact the health client care manager that requested your imaging first. Latoya Marquis, [facility] Workers Compensation Coordinator Electronically Signed Final Report 11/08/2023 02:09 pm Paul Mendez MD IMG US OB ORDERABLE S documented in this encounter Visit Diagnoses Diagnosis care in first trimester documented in this encounter Care Teams Lpn Relationship Specialty Start Date End Date Richard Rasheed MD [address] [place] [address] PCP - General Family Medicine 07/05/23 documented as of this encounter
--- OUTSIDE RECORDS SUMMARY | 2024-02-21 14:44 | XMS_ITS | Encounter Summary ---
Author Organization [facility] [place] [address] Care Team Providers Care Paperhanger Supervisor Name Role Phone Richard Rasheed MD Primary Care Provider [phone] Encounter Details Date Type Department Care Team (Late st Contact Info) Description 11/21/2023 Telephone Obstetrics [place] [address] Sary Harris Social History Tobacco [...] from your doctor or pharmacy? Never 10/12/2023 [facility] Utilities Answer Date Recorded In the past 12 months has [facility] [employer], [employer], oil, or water [employer] threatened to shut off services in your [...] 03/03/2024 3:00 PM EST [place] [phone] Linda Diaz MD [facility] [place] [address] 03/03/2024 4:00 PM EST Routine Obstetrics and Gynecology at [place] [address] Linda Diaz MD [facility] [place] [address] 03/03/2024 4:30 PM EST Scheduled View Only Obstetrics and Gynecology at [place] [address] 03/12/2024 10:45 AM EST Office Visit Endocrinology at [place] [address] James Barth DO [facility] [place] [address] 05/23/2024 Hospital Encounter Birthing [place] [address] Maite Malloy MD [facility] DR OBSTETRICS [place] [address] documented as of this encounter Visit Diagnoses Not on filedocumented in this encounter Care Teams Paperhanger Supervisor Relationship Specialty Start Date End Date Richard Rasheed MD [address] [place] [address] PCP - General Family Medicine 07/05/23 documented as of this encounter
--- OUTSIDE RECORDS SUMMARY | 2024-02-21 14:44 | XMS_ITS | Encounter Summary ---
Author Organization [facility] [place] [address] Care Team Providers Care Account Services Analyst Name Role Phone Valencia Adhikari APRN Primary Care Provider [phone] Encounter Details Date Type Department Care Team (Late st Contact Info) Description 12/13/2021 Telephone [place] [address] Peg Cast Social History Tobacco [...] 03/03/2024 3:00 PM [place] [address] Linda Diaz MD [facility] [place] [address] 03/03/2024 4:00 PM EST Routine Obstetrics [place] [address] Linda Diaz MD [facility] [place] [address] 03/03/2024 4:30 PM EST Scheduled View Only Obstetrics and Gynecology at [address] 03/12/2024 10:45 AM EST Office Visit Endocrinology at [address] James Barth DO [facility] [place] [address] 05/23/2024 Hospital Encounter Birthing [place] [phone] Maite Malloy MD [facility] DR [place] [address] documented as of this encounter Visit Diagnoses Not on filedocumented in this encounter Care Teams Account Services Analyst Relationship Specialty Start Date End Date Valencia Adhikari APRN [address] [place] [address] PCP - General 04/21/14 07/04/23 documented as of this encounter
--- OUTSIDE RECORDS SUMMARY | 2024-02-21 14:44 | XMS_ITS | Encounter Summary ---
Author Organization [facility] Address [facility] [place] [address] Care Team Providers Care Project Director Name Role Phone Richard Rasheed MD Primary Care Provider [phone] Encounter Details Date Type Department Care Team (Late st Contact Info) Description 10/12/2023 10:20 AM EDT Initial Obstetrics [place] [address] Tye Gamble MD [facility] DR OBSTETRICS & [place] [address] GA: 4w5d Social History Tobacco Use Types Packs/Day Years [...] from your doctor or pharmacy? Never 10/12/2023 [facility] Utilities Answer Date Recorded In the past 12 months has e electric, gas, oil, or water [employer] threatened to shut off services in your [...] any time in the past 12 m [facility], were you homeless or living in [...] Result date Tests and Procedures Follow-ups 08/04/2020 (Order#[id number]) Aerial Survey Technician Cytology Final Report *Pap Smear: NILM TRUSS DESIGNER CYTOLOGY FINAL REPORT: View Details in Report [...] of remains herself; no medical care 2 2006 7w0d 1 Review Of Systems: Past medical history: Past Medical History: Diagnosis Date Anemia not on meds Anxiety sees therapist Asthma Triggers are cold, exercise. Used steroids with episodes of bronchitis.. Asymptomatic for a year Intubated once when 18 months with bronchiolitis Back pain Cancer 03/2011 THYROID Chlamydia 2010 Depression 02/23/2011 not on meds or in counseling Hypothyroidism Irritable bowel syndrome 2009 ulcers IUD (intrauterine device) in place 03/14/2016 [...] MONITORING, SETUP performed by JUAN ESPARZA at [facility] MAIN OR PRO THYROIDECTOMY, NYDIA, [facility] NECK SURG 03/22/2011 THYROIDECTOMY, FOR MALIGNANCY, LIMITED NECK DISSECTION performed by JUAN ESPARZA at [facility] MAIN OR TONSILLECTOMY 2010 UPPER GASTROINTESTINAL [...] a external lab requisition was sent to [facility]. Will add to beta list given bleeding present a few days ago (now resolved). Plan to schedule ultrasound in approximately 1-2 weeks pending beta hcg trend. Bleeding and ectopic precautions reviewed - she is aware to present more emergently to care with increased vaginal bleeding or abdominal pain. This has been complicated by: History of delivery @31w ([facility] 2013), @21w (at home). Consider cervical [...] 03/03/2024 3:00 PM [place] [address] Linda Diaz MD [facility] [place] [address] 03/03/2024 4:00 PM EST Routine Obstetrics [place] [address] Linda Diaz MD [facility] [place] [address] 03/03/2024 4:30 PM EST Scheduled View Only Obstetrics [place] [address] 03/12/2024 10:45 AM EST Office [place] [address] James Barth DO [facility] [place] [address] 05/23/2024 Hospital [place] [address] Maite Malloy MD [facility] DR OBSTET[place]ICS [place] [address] documented as of this encounter Procedures Procedure [...] multiple bacterial species suggesting mucosal contamination. (A) [facility] Clean Catch Urine 10/12/2023 10:20 AM EDT 10/12/2023 11:53 AM EDT Narrative Resulting Agency Comment Spec In Lab Paul Mendez MD MICROBIOLOGY - GENE RAL ORDERABLES Performing Organization Address City/[facility]/ZIP Co de Phone Number [facility] [place] [address] * GC/Chlamydia Vaginal (10/12/2023 10:20 AM EDT) GC Gene Amp Negative Negative [facility] Comment: Eye specimens are not an FDA-cleared source for this testing. The performance of this assay with eye specimens has been validated in-house. GC Source Vaginal [facility] Chlamydia Gene Amp Negative Negative [facility] Comment: Eye specimens are not an FDA-cleared source for this testing. The performance of this assay with eye specimens has been validated in-house. Chlm Source Vaginal [facility] Vaginal 10/12/2023 10:2 0 AM EDT 10/12/2023 11:54 AM EDT Narrative Resulting Agency Comment Spec In Lab Paul Mendez MD MICROBIOLOGY - GENE RAL ORDERABLES Performing Organization Address [facility]/ZIP Co de Phone Number [facility] [place] [address] * POCT urine (10/12/2023) Pathologist [facility] POC Urine HCG Positive POC Control Internal [...] disorder documented in this encounter Care Teams Project Director Relationship Specialty Start Date End Date Richard Rasheed MD [address] [place] [address] PCP - General Family Medicine 07/05/23 documented as of this encounter
--- OUTSIDE RECORDS SUMMARY | 2024-02-21 14:44 | XMS_ITS | Encounter Summary ---
Author Organization [facility] Address [facility] [place] [address] Care Team Providers Care Graduate Intern Name Role Phone Richard Rasheed MD Primary Care Provider [phone] Encounter Details Date Type Department Care Team (Late st Contact Info) Description 10/31/2023 Notes Only [employer] [place] [address] Tye Gamble MD [facility] OBSTETRICS & [place] [address] Social History Tobacco Use Types Packs/Day Years [...] from your doctor or pharmacy? Never 10/12/2023 [facility] Utilities Answer Date Recorded In the past 12 months has e [employer], gas, oil, or water [employer] threatened to shut off services in your [...] time in the past 12 m [facility], were you homeless or living in a snf (including now)? Yes 10/12/2023 Estimated Date of [...] at urgent care) 10/29/2023: Tammy 46,514 Over [place]o Candelario reports having no further vaginal bleeding or [...] 03/03/2024 3:00 PM EST Appointment Radiology at [place] [phone] Linda Diaz MD [facility] [place] [address] 03/03/2024 4:00 PM EST Routine Obstetrics and Gynecology at [place] [phone] Linda Diaz MD [facility] [address] [place] [address] 03/03/2024 4:30 PM EST Scheduled View Only Obstetrics and Gynecology at [place] [phone] 03/12/2024 10:45 AM EST Office [place] [address] James Barth DO [facility] [place] [address] 05/23/2024 Hospital [place] [address] Maite Malloy MD [facility] OBSTETRICS [place] [address] documented as of this encounter Visit Diagnoses Not on filedocumented in this encounter Care Teams Graduate Intern Relationship Specialty Start Date End Date Richard Rasheed MD [address] [place] [address] PCP - General Family Medicine 07/05/23 documented as of this encounter
--- OUTSIDE RECORDS SUMMARY | 2024-02-21 14:44 | XMS_ITS | Encounter Summary ---
Author Organization [facility] [place] [address] Care Team Providers Care Paper Bag Machine Operator Name Role Phone Richard Rasheed MD Primary Care Provider [phone] Encounter Details Date Type Department Care Team (Late st Contact Info) Description 11/22/2023 Telephone [place]stetrics [place] [address] Suri Menon RN Social History [...] from your doctor or pharmacy? Never 10/12/2023 [facility] Utilities Answer Date Recorded In the past 12 months has [facility] [employer], [employer], oil, or water [employer] threatened to shut off services in your [...] in the past 12 m [facility], were you homeless or living in a fci (including now)? Yes 10/12/2023 Estimated Date of [...] AM EDT TC from Andree Hummel 11w0d [facility] Team Next OB visit 12/26 Reason for call: Vaginal bleeding Andree states that she had spotting a couple of days ago. She states she is calling today in response to a message she received from hospice patient care secretary staff regarding scheduling a follow up for [...] 03/03/2024 3:00 PM [place] [address] Linda Diaz MD [facility] [place] [address] 03/03/2024 4:00 PM EST Routine Obstetrics and Gynecology at [place] [phone] Linda Diaz MD [facility] [place] [address] 03/03/2024 4:30 PM EST Scheduled View Only Obstetrics and Gynecology at [address] 03/12/2024 10:45 AM EST Office Visit Endocrinology at [place] [address] James Barth DO [facility] [place] [address] 05/23/2024 Hospital Encounter Birthing [place] [phone] Maite Malloy MD [facility] DR [place] [address] documented as of this encounter Visit Diagnoses Not on filedocumented in this encounter Care Teams Paper Bag Machine Operator Relationship Specialty Start Date End Date Richard Rasheed MD [address] [place] [address] PCP - General Family Medicine 07/05/23 documented as of this encounter
--- OUTSIDE RECORDS SUMMARY | 2024-02-21 14:44 | XMS_ITS | Encounter Summary ---
Author Organization Formerly [facility] [place] [address] Care Team Providers Care Early Childhood Teacher Assistant Name Role Phone Richard Rasheed MD Primary Care Provider [phone] Encounter Details Date Type Department Care Team (Late Contact Info) Description 08/15/2023 Telephone Obstetrics [place] [address] Sarah Tejeda Social History Tobacco [...] 03/03/2024 3:00 PM EST [place] [address] Linda Diaz MD [facility] [place] [address] 03/03/2024 4:00 PM EST Routine Obstetrics [place] [address] Linda Diaz MD [facility] [place] [address] 03/03/2024 4:30 PM EST Scheduled View Only Obstetrics [place] [phone] 03/12/2024 10:45 AM EST Office [place] [address] James Barth DO [facility] [place] [address] 05/23/2024 Hospital [place] [phone] Maite Malloy MD [facility] DR OBSTETRICS [place] [address] documented as of this encounter Visit Diagnoses Not on filedocumented in this encounter Care Teams Early Childhood Teacher Assistant Relationship Specialty Start Date End Date Richard Rasheed MD [address] [place] [address] PCP - General Family Medicine 07/05/23 documented as of this encounter
--- OUTSIDE RECORDS SUMMARY | 2024-02-21 14:44 | XMS_ITS | Encounter Summary ---
[place] [address] Care Team Providers Care Youth Specialist Name Role Phone Richard Rasheed MD Primary Care Provider [phone] Reason for Referral * Psychiatric (Routine) - Closed Specialty Diagnoses / Procedures Referred By Contwillow t Referred To Contact Psychiatry Diagnoses Bipolar affective disorder, current episode mixed, current episode severity unspecified Richard Rasheed MD [address] [place] [address] [facility] [place] [address] Referral ID Status Reason Start Date Expiration Date V isits Requested Visits Authorized [id number] Closed Consult, Test & Treat PCP Updated and/or Approved 07/05/2023 07/04/2024 6 6 Encounter Details Date Type Department Care Team (Latest Contact Info) Description 07/05/2023 Transcribe Orders eDH Incoming Referrals [phone] Richard Rasheed MD [address] [place] [address] Bipolar affective disorder, current episode [...] 03/03/2024 3:00 PM EST Appointment Radiology at [place] [phone] Linda Diaz MD [facility] [place] [address] 03/03/2024 4:00 PM EST Routine Obstetrics and Gynecology at [place] [phone] Linda Diaz MD [facility] [place] [address] 03/03/2024 4:30 PM EST Scheduled View Only Obstetrics and Gynecology at [place] [phone] 03/12/2024 10:45 AM EST Office Visit Endocrinology at [place] [phone] James Barth DO [facility] [place] [address] 05/23/2024 Hospital [place] [phone] Maite Malloy MD [facility] DR OBSTETRICS [place] [address] Scheduled Referrals Name Type Priority Associated Diagnoses Orde r Schedule Referral to Adult Psychiatry Outpatient Referral Routine Bipolar affective disorder, current episode mixed, current episode severity unspecified Ordered: 07/05/2023 documented as of this encounter Visit Diagnoses Diagnosis Bipolar affective disorder, current episode mixed, current episode severity unspecified documented in this encounter Care Teams Youth Specialist Relationship Specialty Start Date End Date Richard Rasheed MD [address] [place] [address] PCP - General Family Medicine 07/05/23 documented as of this encounter
--- OUTSIDE RECORDS SUMMARY | 2024-02-21 14:44 | XMS_ITS | Encounter Summary ---
Author Organization [facility] [place] [address] Care Team Providers Care Senior Marketing Associate Name Role Phone Richard Rasheed MD Primary Care Provider [phone] Encounter Details Date Type Department Care Team (Late st Contact Info) Description 10/23/2023 Telephone [place]stetrics [place] [address] Natalia Bravo, RN Social History [...] Recorded In the past 12 months has [facility] Scan, [employer], oil, or water [employer] threatened to shut off services in your [...] were you homeless or living in a halfway (including now)? Yes 10/12/2023 Estimated Date of [...] answer and VM box full. Sent a [employer] message to follow up/make a plan for a call. documented in this encounter Plan of Treatment Upcoming Encounters Date Type Department Care Team (Late st Contact Info) Description 03/03/2024 3:00 PM EST Appointment Radiology at [address] Linda Diaz MD [facility] [place] [address] 03/03/2024 4:00 PM EST Routine Obstetrics and Gynecology at [place] [phone] Linda Diaz MD [facility] [place] [address] 03/03/2024 4:30 PM EST Scheduled View Only Obstetrics and Gynecology at [address] 03/12/2024 10:45 AM EST Office Visit Endocrinology at [place] [address] James Barth DO [facility] [place] [address] 05/23/2024 Hospital Encounter Birthing [place] [phone] Maite Malloy MD [facility] DR OBSTETRICS [place] [address] documented as of this encounter Visit Diagnoses Not on filedocumented in this encounter Care Teams Senior Marketing Associate Relationship Specialty Start Date End Date Richard Rasheed MD [address] [place] [address] PCP - General Family Medicine 07/05/23 documented as of this encounter
--- OUTSIDE RECORDS SUMMARY | 2024-02-21 14:44 | XMS_ITS | Encounter Summary ---
Author Organization [facility] [place] [address] Care Team Providers Care Security Control Center Operator Name Role Phone OnofreMarilyn pittshryn Oralia [place] Primary Care Provider [phone] Encounter Details Date Type Department Care Team (Latest Contact Info) Description 08/01/2022 11:00 AM EDT TH Visit (TeleHealth) [place] [phone] Shelli Kearns MD [facility] [place] [address] PATIENT NOT SEEN Social History Tobacco Use [...] 03/03/2024 3:00 PM EST Appointment Radiology at [place] [phone] Linda Diaz MD [facility] [place] [address] 03/03/2024 4:00 PM EST Routine Obstetrics and Gynecology at [place] [phone] Linda Diaz MD [facility] [place] [address] 03/03/2024 4:30 PM EST Scheduled View Only Obstetrics and Gynecology at [place] [phone] 03/12/2024 10:45 AM EST Office Visit Endocrinology at [address] James Barth DO [facility] [place] [address] 05/23/2024 Hospital Encounter Birthing [place] [phone] Maite Malloy MD [facility] DR OBSTETRICS [place] [address] documented as of this encounter Visit Diagnoses Diagnosis DH PATIENT NOT SEEN documented in this encounter Care Teams Security Control Center Operator Relationship Specialty Start Date End Date Valencia Adhikari APRN [address] [place] [address] PCP - General 04/21/14 07/04/23 documented as of this encounter
--- OUTSIDE RECORDS SUMMARY | 2024-02-21 14:44 | XMS_ITS | Encounter Summary ---
Author Organization [facility]ly [facility] Address [facility] [place] [address] Care Team Providers Care Director Machine Name Role Phone Richard Rasheed MD Primary Care Provider [phone] Encounter Details Date Type Department Care Team (Late st Contact Info) Description 11/20/2023 Telephone Obstetrics [place] [address] Jody Wood RN Social History [...] doctor or pharmacy? Never 10/12/2023 [facility] Utilities Answer Date Recorded In the past 12 months has health system [employer], [employer], oil, or water [employer] threatened to shut off services in your [...] were you homeless or living in a mcfp (including now)? Yes 10/12/2023 Estimated Date of [...] her I would forward this to the [facility] on-call for further recommendations. documented in this encounter Plan of Treatment Upcoming Encounters Date Type Department Care Team (Late st Contact Info) Description 03/03/2024 3:00 PM EST Appointment Radiology at [place] [phone] Linda Diaz MD [facility] DR MATERNAL [place] [address] 03/03/2024 4:00 PM EST Routine Obstetrics and Gynecology at [address]1000 Linda Diaz MD [facility] DR MATERNAL [place] [address] 03/03/2024 4:30 PM EST Scheduled View Only Obstetrics [place] [address] 03/12/2024 10:45 AM EST Office Visit Endocrinology at [address]1000 James Barth DO [facility] [place] [address] 05/23/2024 Hospital Encounter Birthing [place] [phone] Maite Malloy MD [facility] OBSTETRICS [place] [address] documented as of this encounter Visit Diagnoses Not on filedocumented in this encounter Care Teams Director Machine Relationship Specialty Start Date End Date Richard Rasheed MD [address] [place] [address] PCP - General Family Medicine 07/05/23 documented as of this encounter
--- OUTSIDE RECORDS SUMMARY | 2024-02-21 14:44 | XMS_ITS | Encounter Summary ---
Author Organization [facility] Address [facility] [place] [address] Care Team Providers Care Arboreal Scientist Name Role Phone Richard Rasheed MD Primary Care Provider [phone] Encounter Details Date Type Department Care Team (Late st Contact Info) Description 10/26/2023 Telephone Obstetrics [place] [phone] Tye Gamble MD [facility] DR OBSTETRICS & [place] [address] Social History Tobacco Use Types Packs/Day Years [...] your doctor or pharmacy? Never 10/12/2023 [facility] Utilities Answer Date Recorded In the past 12 months has [employer], gas, oil, or water [employer] threatened to shut off services in your [...] you homeless or living in a senior living (including now)? Yes 10/12/2023 Estimated Date of [...] 03/03/2024 3:00 PM EST Appointment Radiology at [place] [phone] Linda Diaz MD [facility] MATERNAL [place] [address] 03/03/2024 4:00 PM EST Routine Obstetrics and Gynecology at [place] [phone] Linda Diaz MD [facility] DR MATERNAL [place] [address] 03/03/2024 4:30 PM EST Scheduled View Only Obstetrics and Gynecology at [place] [phone] 03/12/2024 10:45 AM EST Office Visit Endocrinology at [place] [phone] James Barth DO [facility] DR ENDOCRIN[place] [address] 05/23/2024 Hospital Encounter [place] [phone] Maite Malloy MD [facility] OBSTETRICS [place] [address] documented as of this encounter Visit Diagnoses Not on filedocumented in this encounter Care Teams Arboreal Scientist Relationship Specialty Start Date End Date Richard Rasheed MD [address] [place] [address] PCP - General Family Medicine 07/05/23 documented as of this encounter
--- OUTSIDE RECORDS SUMMARY | 2024-02-21 14:44 | XMS_ITS | Encounter Summary ---
Author Organization [facility] Address [facility] [place] [address] Care Team Providers Care Crepe Sole Scourer Name Role Phone Richard Rasheed MD Primary Care Provider [phone] Reason for Visit * Reason Comments Family History sister with possible LCHAD deficiency * Consultation (Routine) - Closed Specialty Diagnoses / Procedures Referred By Contac t Referred To Contact Obstetrics and Gynecology Diagnoses History of delivery, currently Hypothyroidism, postsurgical GC (11/21-12/05) Walt Bay MD [facility] OBSTETRICS [place] [address] [facility] Attendant [address] [place] [address] Referral ID Status Reason Start Date Expiration Date V isits Requested Visits Authorized [id number] Closed Consult, Test & Treat 11/15/2023 11/14/2024 1 1 Encounter Details Date Type Department Care Team (Latest Contact Info) Description 11/23/2023 1:00 PM EDT TH Visit (TeleHealth) Obstetrics [place] [address] Félix Richardson, [facility] OBSTETRICS & [place] [address] Encounter for procreative genetic counseling; [...] from your doctor or pharmacy? Never 10/12/2023 [facility] Utilities Answer Date Recorded In the past 12 months has th e [employer], oil, or water [employer] threatened to shut off services in your [...] time in the past 12 m [facility], were you homeless or living [...] this encounter Progress Notes * Félix Richardson, [facility] - 11/23/2023 1:00 PM EDT Reproductive Genetics Andree Hummel is a 33 y.o. female currently at 11w1d gestation. I met with Andree for a 50-minute genetic counseling telephone visit (converted from video due to technical difficulties). She was located in [place] at the time of the visit. She was unaccompanied. Referring Provider: Walt Bay MD [facility] DR OBSTETRICS AND GYNECOLOGY [place], [place] [address] Chief Concern Patient presents with Family History [...] mother provided written authorization to review the [facility] medical records of Andree's sister, Ana Hummel ( 03/27/1999). 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 She then had numerous [...] screening, which includes 112 conditions with a cgkczkex-js-kgflvp phenotype and a carrier frequency of >=1/200; this panel does not include LCHAD or TFP deficiency. Carrier screening for additional serious but less common conditions (Tier 4) is available to patients who want maximum information; the gene list varies by laboratory. We are currently offering [employer]'s Horizon 113 (Tier 3) and Horizon 609 [...] TFP deficiency. Orders Placed This Encounter Procedures Authy CUSTOM Plan Horizon Custom Carrier Screen (609 conditions) Written consent obtained through [employer] and imported to chart. Epic order placed. [employer] to manage sample collection (saliva collection kit to be mailed to patient). Turnaround time for results is 2-3 weeks. Results will be communicated via [facility]. Partner Testing: Deferred documented in this encounter Plan of Treatment Upcoming Encounters Date Type Department Care Team (Late st Contact Info) Description 03/03/2024 3:00 PM EST Appointment Radiology at [place] [phone] Linda Diaz MD [facility] DR MATERNAL [place] [address] 03/03/2024 4:00 PM EST Routine Obstetrics and Gynecology at [address] Linda Diaz MD [facility] DR MATERNAL [place] [address] 03/03/2024 4:30 PM EST Scheduled View Only Obstetrics and Gynecology at [address] 03/12/2024 10:45 AM EST Office Visit Endocrinology at [address] James Barth DO [facility] [place] [address] 05/23/2024 Hospital Encounter Birthing [place] [phone] Maite Malloy MD [facility] DR OBSTETRICS [place] [address] Scheduled Orders Name Type Priority Associated Diagnoses [...] trimester documented in this encounter Care Teams Crepe Sole Scourer Relationship Specialty Start Date End Date Richard Rasheed MD [address] [place] [address] PCP - General Family Medicine 07/05/23 documented as of this encounter
--- OUTSIDE RECORDS SUMMARY | 2024-02-21 14:44 | XMS_ITS | Encounter Summary ---
Author Organization Former[facility] [place] [address] Care Team Providers Care Emergency Department Coordinator Name Role Phone Richard Rasheed MD Primary Care Provider [phone] Encounter Details Date Type Department Care Team (Late Contact Info) Description 08/13/2023 Telephone Obstetrics [place] [address] Sarah Tejeda Social History Tobacco [...] 03/03/2024 3:00 PM [place] [address] Linda Diaz MD [facility] [place] [address] 03/03/2024 4:00 PM EST Routine Obstetrics [place] [address] Linda Diaz MD [facility] MATERNAL [place] [address] 03/03/2024 4:30 PM EST Scheduled View Only Obstetrics [place] [address] 03/12/2024 10:45 AM EST Office [place] [address] James Barth DO [facility] [place] [address] 05/23/2024 [place] [phone] Maite Malloy MD [facility] DR OBSTETRICS [place] [address] documented as of this encounter Visit Diagnoses Not on filedocumented in this encounter Care Teams Emergency Department Coordinator Relationship Specialty Start Date End Date Richard Rasheed MD [address] [place] [address] PCP - General Family Medicine 07/05/23 documented as of this encounter
--- OUTSIDE RECORDS SUMMARY | 2024-02-21 14:44 | XMS_ITS | Encounter Summary ---
[place] [address] Care Team Providers Care Solar Installation Supervisor Name Role Phone OnofreMarilyn pittshrryan Barton [place] Primary Care Provider [phone] Encounter Details Date Type Department Care Team (Late st Contact Info) Description 11/21/2021 Telephone [place] [address] Magalie Pinon Social History Tobacco [...] calls can be handled by: Any Procedure Conditioning Machine Operator documented in this encounter Plan of Treatment Upcoming Encounters Date Type Department Care Team (Late st Contact Info) Description 03/03/2024 3:00 PM [place] [address] Linda Diaz MD [facility] [place] [address] 03/03/2024 4:00 PM EST Routine Obstetrics and Gynecology at [place] [address] Linda Diaz MD [facility] [place] [address] 03/03/2024 4:30 PM EST Scheduled View Only Obstetrics and Gynecology at [place] [address] 03/12/2024 10:45 AM EST Office Visit Endocrinology at [place] [address] James Barth DO [facility] [place] [address] 05/23/2024 Hospital Encounter Birthing [place] [address] Maite Malloy MD [facility] DR [place]ST[place] [address] documented as of this encounter Visit Diagnoses Not on filedocumented in this encounter Care Teams Solar Installation Supervisor Relationship Specialty Start Date End Date Valencia Adhikari APRN [address] [place] [address] PCP - General 04/21/14 07/04/23 documented as of this encounter
--- OUTSIDE RECORDS SUMMARY | 2024-02-21 14:44 | XMS_ITS | Encounter Summary ---
Author Organization [facility] Address [facility] [place] [address] Care Team Providers Care Timber Faller Name Role Phone Richard Rasheed MD Primary Care Provider [phone] Reason for Referral * Consultation (Routine) - Closed Specialty Diagnoses / Procedures Referred By Contac t Referred To Contact Obstetrics and Gynecology Diagnoses History of delivery, currently Hypothyroidism, postsurgical GC (11/21-12/05) Walt Briseno MD [facility] [address] [place] [address] [facility] [place] Sales And Marketing Coordinator [address] [place] [address] Referral ID Status Reason Start Date Expiration Date V isits Requested Visits Authorized [id number] Closed Consult, Test & Treat 11/15/2023 11/14/2024 1 1 Reason for Visit * Reason Comments Establish Care Encounter Details Date Type Department Care Team (Late st Contact Info) Description 11/15/2023 3:00 PM EDT Office Visit Obstetrics [place] [address] Walt Briseno MD [facility] [place] [address] History of delivery, currently ; Hypothyroidism, postsurgical [...] from your doctor or pharmacy? Never 10/12/2023 [facility] Utilities Answer Date Recorded In the past 12 months has th e [employer], oil, or water [employer] [place] threatened to shut off services in your [...] any time in the past 12 m [facility], were you homeless or living in a nursing home (including now)? Yes 10/12/2023 Estimated Date [...] for counseling regarding transfer of care to [facility] team. Plan to increase synthroid to 275mcg. [...] not received required previsit questionnaires, send via [facility] Other information or concerns: Called at [phone] documented in this encounter Plan of Treatment Upcoming Encounters Date Type Department Care Team (Late st Contact Info) Description 03/03/2024 3:00 PM EST Appointment [place] [phone] Linda Diaz MD [facility] [place] [address] 03/03/2024 4:00 PM EST Routine Obstetrics [place] [address] Linda Diaz MD [facility] [place] [address] 03/03/2024 4:30 PM EST Scheduled View Only Obstetrics [place] [address] 03/12/2024 10:45 AM EST Office [place] [address] James Barth DO [facility] [place] [address] 05/23/2024 Hospital [place] [address] Maite Malloy MD [facility] [address] [place]ST[place] [address] Scheduled Orders Name Type Priority Associated Diagnoses Orde r Schedule US OB Cervical Length Transvaginal Imaging Routine History of delivery, currently Expected: 01/10/2024, Expires: 07/11/2024 US OB Cervical Length Transvaginal Imaging Routine History of delivery, currently Expected: 02/07/2024, Expires: 08/08/2024 Scheduled Referrals Name Type Priority Associated Diagnoses Orde r Schedule Referral to OB Genetic Counseling Outpatient Referral Routine History of delivery, currently Hypothyroidism, postsurgical Ordered: 11/15/2023 documented as of this encounter Results * US OB Detailed Morphology (02/07/2024 10:39 AM EDT) WORKSTATION ID [id number] RAD Anatomical Region Laterality Modality Pelvis, Abdomen [...] who have questions, please contact the health care companion that requested your imaging first. ?Linda Diaz, Assistant Professor Of Psychology Electronically Signed Corrected Final Report ??02/07/2024 01:35 pm Narrative 02/07/2024 10:53 AM EDT OBSTETRICS REPORT ? (Corrected Final 02/07/2024 01:35 pm) PATIENT INFO: ID #: ? [id number] ?: ??[birth year] (33 yrs)(F) Name: ? SORCHA E ? Visit Date: 02/07/2024 10:23 am ? GIL- ? FRANK PERFORMED BY: Performed By: ? Aster Betancur RDMS Attending: ?Mathew LIMA, Lalita Diop Referred By: ?[facility] Location[facility] ? [place] SERVICE(S) PROVIDED: [facility] - Detailed Morphology - HPP024 ? 35872 UOBTVCER - Transvaginal ??2nd Trimester - ?91337 Cervical Length - [id number] INDICATIONS: 21 weeks gestation of ?Z3A.21 h/o [...] - 87 FL/AC: ? 22.6 ??% ? 20 - 24 Est. FW: ? 484 ??gm [...] SVC: ? Visualized Interventr. Septum: ?Visualized Cardiac [place]: ?Visualized Diaphragm: ? Visualized 3 Vessel View: [...] 02/07/2024 01:35 pm) PATIENT INFO: ID #: [id number] : [birth year] (33 yrs)(F) Name: PREETHI Godoy Visit Date: 02/07/2024 10:23 am MARIO MARIE PERFORMED BY: Performed By: Aster Betancur RDMS Attending: Lalita Carmona MD Referred By: Walt BRISENO Location: [place] SERVICE(S) PROVIDED: [facility] - Detailed Morphology - [id number] 73498 UOBTVCER - Transvaginal 2nd Trimester - 83176 Cervical Length - [id number] INDICATIONS: 21 weeks gestation of Z3A.21 h/o [...] Visualized SVC: Visualized Interventr. Septum: Visualized Cardiac [place]: Visualized Diaphragm: Visualized 3 Vessel View: Visualized [...] structural abnormalities are noted. Addendum by Dr Emily PRIEST is corrected to reflect first ultrasound with CRL rather than ZAYDA by gestational sac. Changes also made in EPIC Thank you for letting us participate in the care of this patient. If you are a health care provider and have any questions regarding this report, please contact the number above. For patients who have questions, please contact the health care companion that requested your imaging first. Linda Diaz, Assistant Professor Of Psychology Electronically Signed Corrected Final Report 02/07/2024 01:35 pm E Melany Briseno MD IMG US OB ORDERAB LES * US OB Cervical Length Transvaginal (12/27/2023 1:31 PM EDT) ACTV8 WORKSTATION ID [id number] RAD Anatomical Region Laterality Modality Pelvis, Abdomen [...] who have questions, please contact the health care companion that requested your imaging first. ? Linda Diaz, Assistant Professor Of Psychology Electronically Signed Final Report ?? 12/27/2023 01:45 pm Narrative 12/27/2023 1:45 PM EDT OBSTETRICS REPORT ?(Signed Final 12/27/2023 01:45 pm) PATIENT INFO: ID #: ? [id number] ?: ??[birth year] (33 yrs)(F) Name: ? SORCHA E ? Visit Date: 12/27/2023 01:34 pm ? LOUISE- ? FRANK PERFORMED BY: Performed By: ? Car Can RDMS Attending: ?Emily LIMA, Linda Figueroa Referred By: ?E MELANY BRISENO Location: ? [place] SERVICE(S) PROVIDED: UOBTVCER - Transvaginal ??2nd Trimester - ?37191 Cervical Length - [id number] INDICATIONS: 16 weeks gestation of ?Z3A.16 h/o [...] 12/27/2023 01:45 pm) PATIENT INFO: ID #: [id number] : [birth year] (33 yrs)(F) Name: PREETHI Godoy Visit Date: 12/27/2023 01:34 pm LOUISEVishal FRANK PERFORMED BY: Performed By: Car Can RDMS Attending: Linda Diaz MD Referred By: Walt BRISENO Location: [place] SERVICE(S) PROVIDED: UOBTVCER - Transvaginal 2nd Trimester - 95473 Cervical Length - [id number] INDICATIONS: 16 weeks gestation of Z3A.16 h/o [...] who have questions, please contact the health care companion that requested your imaging first. Linda Diaz, Assistant Professor Of Psychology Electronically Signed Final Report 12/27/2023 01:45 pm E Melany Briseno MD [facility] OB ORDERAB LES * (ABNORMAL) [facility] [place] (11/15/2023 4:10 PM EDT) Thyroid Stimulating Hormone 35.00(H) 0.27 - 4.20 mcIU/mL [facility] Comment: Reference Interval (mcIU/mL): Females: ??First Trimester: 0.23-3.88 ??Second Trimester: 0.22-3.90 ??Third Trimester: 0.44-4.66 Blood 11/15/2023 4:10 PM EDT 11/15/2023 4:24 PM EDT Narrative Resulting Agency Comment Spec In Lab E Melany Briseno MD CHEMISTRY ORDERAB LES [facility] [place] [place] [address] * Panorama Screen (11/15/2023 4:10 PM EDT) Ramesh Report Summary LOW RISK [facility] Comment:LOW RISK Ramesh Report Note See Notes M JORGE [facility] Trisomy 21 Result (ROM) Low Risk [facility] Trisomy 18 Result (ROM) Low Risk [facility] Trisomy 13 Result (ROM) Low Risk [facility] Monosomy X Result (ROM) Low Risk [facility] Triploidy Result (ROM) Low Risk [facility] Sex of Fetus Female [facility] Ramesh Footnotes See Notes MAR Y [facility] Comment: Testing Methodology DNA isolated from maternal blood, which contains placental DNA, is amplified at specific loci using a targeted PCR assay and is sequenced using a high-throughput sequencer. fraction is determined using a proprietary algorithm incorporating data from single nucleotide polymorphism-based (SNP-based) next-generation sequencing [Cherie E et al. Obstet Gynecol. 2014 Nov;124(2 [...] appropriate. Disclaimers This test was performed by [facility]. [address], [place] [address] (CLIA ID [id number]). The performance characteristics of this test were developed by [facility]. This test has not been cleared or approved by the U.S. Food and Drug Administration (FDA). This laboratory is regulated under CLIA as qualified to perform high-complexity testing. ??202 [facility]. All Rights Reserved. Please refer to the attached PDF report Reviewed By: Isabel Ascencio M.D., Ph.D., [facility], Senior Nuclear Supervising Operator [facility] Rebeamer: Eric Weinberg, Ph.D., [facility] IF THE ORDERING PROVIDER HAS QUESTIONS OR WISHES TO DISCUSS THE RESULTS, PLEASE CONTACT US AT [phone] #3. Ask for the NIPT genetic counselor condenser winder. Blood 11/15/2023 4:10 PM EDT 11/16/2023 7:47 AM EDT E Melany Briseno MD LAB SEND OUT VON JAVIER [facility] [place] [address] documented in this encounter Visit Diagnoses Diagnosis History of delivery, currently with history of pre-term labor Hypothyroidism, postsurgical Postsurgical hypothyroidism History of delivery, currently with history of pre-term labor History of delivery, currently with history of pre-term labor documented in this encounter Care Teams Timber Faller Relationship Specialty Start Date End Date Richard Rasheed MD [address] [place] [address] PCP - General Family Medicine 07/05/23 documented as of this encounter
--- OUTSIDE RECORDS SUMMARY | 2024-02-21 14:44 | XMS_ITS | Encounter Summary ---
Author Organization [facility] Address [facility] [place] [address] Care Team Providers Care Card Placer Name Role Phone Valencia Adhikari APRN Primary Care Provider [phone] Encounter Details Date Type Department Care Team (Latest Contact Info) Description 11/17/2021 8:00 AM EDT TH Visit (TeleHealth) Psychiatry [place] [address] Lisa Dickens, PhD [facility] [address] [place] [address] Unspecified mood (affective) disorder; Borderline personality disorder [...] EDT INDIVIDUAL THERAPY PROGRESS NOTE CPT CODES 01696, 39717, 51946 LOCATION: Telehealth. Andree Hummel gave permission for and was seen for today's appointment with a Telehealth visit. During this visit she was located at her home in [place], [place]. Andree WallisYasir is aware that for any urgent matter she can call [phone]. 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 At that [...] emergencies, call 988 from anywhere in the [facility]. State specific information for [place] and [place] crisis services are as follows and should be used to access local resources: [facility] Mental Health Crises Services [facility] Crisis Line text or call Visit www.KokoChi for further information [place] Call your local [facility] crisis line at: [place]: Counseling Service of [facility] [phone] [place]: [facility] [phone] [place]: [facility] [phone] [place]: [facility] [phone] [place]: [facility] [phone] [place]: [facility] Counseling and Support [phone] [place]: [facility] Mental Health [phone] on weekdays 8AM-4:30PM and [phone] on nights and weekends [place]: Jennifer Alvarez [place]: [facility] [phone] [place]: [facility] Services [phone] [place]: [facility] Services, [place]: [facility] [place]: HCRS or Text [place] to [phone] For further information for [place] residents: https://mentalhealth.[place].gov/services/emergency-services/tla-noi-nvzo National Suicide Prevention Hotline: For patients cared for in the Department of Psychiatry, you can reach your mental health clinician at [phone]. Lisa Dickens, PhD documented in this encounter Plan of Treatment Upcoming Encounters Date Type Department Care Team (Late st Contact Info) Description 03/03/2024 3:00 PM EST Appointment Radiology at [address] Linda Diaz MD [facility] [place] [address] 03/03/2024 4:00 PM EST Routine Obstetrics and Gynecology at [address] Linda Diaz MD [facility] [place] [address] 03/03/2024 4:30 PM EST Scheduled View Only Obstetrics and Gynecology at [place] [address] 03/12/2024 10:45 AM EST Office Visit Endocrinology at [address] James Barth DO [facility] [place] [address] 05/23/2024 Hospital Encounter Birthing [address] Maite Malloy MD [facility] OBSTETRICS [place] [address] documented as of this encounter Visit Diagnoses Diagnosis Unspecified mood (affective) disorder Borderline personality disorder documented in this encounter Care Teams Card Placer Relationship Specialty Start Date End Date Valencia Adhikari APRN [address] [place] [address] PCP - General 04/21/14 07/04/23 documented as of this encounter
--- OUTSIDE RECORDS SUMMARY | 2024-02-21 14:44 | XMS_ITS | Encounter Summary ---
Author Organization [facility] Address [facility] [place] [address] Care Team Providers Care Finishing Room Operator Name Role Phone Richard Rasheed MD Primary Care Provider Encounter Details Date Type Department Care Team (Late st Contact Info) Description 10/19/2023 Telephone [place] [address] Tye Gamble MD [facility] OBSTETRICS & [place] [address] Social History Tobacco Use Types Packs/Day Years [...] doctor or pharmacy? Never 10/12/2023 [facility] Utilities Answer Date Recorded In the past 12 months has e [employer], gas, oil, or water [employer] threatened to shut off services in your [...] any time in the past 12 m [facility], were you homeless or living in [...] (10/11, 10/14) and [employer] in 2 weeks. [facility] message sent to patient earlier this week with reminder to complete beta hcg. Andree reports that she is doing well at this time, denies any further vaginal bleeding or spotting. Tried to get lab drawn at [facility] this week, however was told she needed to get first measurement at [facility] (lab requisition already sent to [facility], with no specification on where/when lab [...] 03/03/2024 3:00 PM [place] [address] Linda Diaz MD [facility] MATERNAL [place] [address] 03/03/2024 4:00 PM EST Routine Obstetrics [place] [address] Linda Diaz MD [facility] MATERNAL [place] [address] 03/03/2024 4:30 PM EST Scheduled View Only Obstetrics [place] [address] 03/12/2024 10:45 AM EST Office [place] [address] James Barth DO [facility] DR [place] [address] 05/23/2024 Hospital [place] [phone] Maite Malloy MD [facility] OBSTETRICS [place] [address] documented as of this encounter Visit Diagnoses Not on filedocumented in this encounter Care Teams Finishing Room Operator Relationship Specialty Start Date End Date Richard Rasheed MD [address] [place] [address] PCP - General Family Medicine 07/05/23 documented as of this encounter
--- OUTSIDE RECORDS SUMMARY | 2024-02-21 14:44 | XMS_ITS | Encounter Summary ---
Author Organization [facility] Address [facility] [place] [address] Care Team Providers Care Milk Route Deliverer Name Role Phone Valencia Adhikari APRN Primary Care Provider [phone] Encounter Details Date Type Department Care Team (Latest Contact Info) Description 09/08/2021 11:00 AM EDT TH Visit (TeleHealth) Psychiatry [place] [address] Lisa Dickens, PhD [facility] [place] [address] Unspecified mood (affective) disorder; Borderline personality disorder [...] EDT INDIVIDUAL THERAPY PROGRESS NOTE CPT CODE 37792 LOCATION: Telehealth visit. Andree SinghTamara gave permission for and was seen for today's appointment with a Telehealth visit. During this visit she was located in her apartment in [place], [place]. Andree Hummel is aware that for any urgent matter she can can contact her regional mental health crisis services. For patients located in [place]: www.Walk-in or text/call . Forpatients located in [place]: [email or web address].[place].[facility]/services/emergency-services/eym-cgo-lvmz. To reach their [facility] mental health clinician or the outpatient Department of Psychiatry clinics,patient can call [phone]. SESSION DURATION: 25 minutes ATTENDEES: Patient PRIMARY [...] 03/03/2024 3:00 PM EST Appointment Radiology at [place] [phone] Linda Diaz MD [facility] MATERNAL [place] [address] 03/03/2024 4:00 PM EST Routine Obstetrics [place] [address] Linda Diaz MD [facility] MATERNAL [place] [address] 03/03/2024 4:30 PM EST Scheduled View Only Obstetrics [place] [address] 03/12/2024 10:45 AM EST Office Visit Endocrinology at [address] James Barth, [facility] [place] [address] 05/23/2024 Hospital [place] [address] Maite Malloy MD [facility] DR OBSTETRICS [place] [address] documented as of this encounter Visit Diagnoses Diagnosis Unspecified mood (affective) disorder Borderline personality disorder documented in this encounter Care Teams Milk Route Deliverer Relationship Specialty Start Date End Date Valencia Adhikari APRN [address] [place] [address] PCP - General 04/21/14 07/04/23 documented as of this encounter
--- OUTSIDE RECORDS SUMMARY | 2024-02-21 14:44 | XMS_ITS | Encounter Summary ---
Author Organization [facility] Address [facility] [place] [address] Care Team Providers Care Embedded Case Manager Name Role Phone Richard Rasheed MD Primary Care Provider [phone] Reason for Visit * Reason Comments Routine Visit Ultrasound Finding 9 week u/s Encounter Details Date Type Department Care Team (Late st Contact Info) Description 11/08/2023 3:00 PM EDT Routine Obstetrics [place] [address] Ab, Lexii Khan, [facility] [place] [address] GA: [id number] Social History Tobacco Use Types Packs/Day Years [...] from your doctor or pharmacy? Never 10/12/2023 [facility] Utilities Answer Date Recorded In the past [...] in the past [address] [facility], were you homeless or living in a [...] in this encounter Progress Notes * Lexii Berger, JAYNEJose A - 11/08/2023 3:00 PM EDT Preethi presented [...] 11/08/2023 02:09 pm) PATIENT INFO: ID #: [id number] : [birth year] (33 yrs)(F) Name: PREETHI Godoy Visit Date: 11/08/2023 01:46 pm MARIO MARIE PERFORMED BY: Attending: Latoya Marquis MD Resident: Abdi LIMA, [facility] Performed By: Darwin Fleming RDMS Referred By: PAUL MENDEZ Location: [place] SERVICE(S) PROVIDED: UOBVIB - Viability <14 weeks - Transabdominal - [id number] INDICATIONS: 9 weeks gestation of Z3A.09 at [...] who have questions, please contact the health account executive healthcare that requested your imaging first. Latoya Marquis, [employer] Utility Locator Electronically Signed Final Report 11/08/2023 02:09 pm ZAYDA changed in chart. Plan for f/u with MFM due to total thyroidectomy and poor obstetric history (loss at 20 weeks, 33 week delivery) documented in this encounter Plan of Treatment Upcoming Encounters Date Type Department Care Team (Late st Contact Info) Description 03/03/2024 3:00 PM EST [place] [address] Linda Diaz MD [facility] [place] [address] 03/03/2024 4:00 PM EST Routine Obstetrics and Gynecology at [place] [phone] Linda Diaz MD [facility] [place] [address] 03/03/2024 4:30 PM EST Scheduled View Only Obstetrics [place] [address] 03/12/2024 10:45 AM EST Office [place] [phone] James Barth DO [facility] [place] [address] 05/23/2024 Hospital Encounter Birthing [place] [phone] Maite Malloy MD [facility] DR OBSTETRICS [place] [address] documented as of this encounter Procedures Procedure [...] in first trimester HIV SCREEN, 4TH GENERATION ([facility] [employer]/CGP/APD/NLH) Routine 11/08/2023 3:33 PM EDT care in first trimester HEPATITIS B SURFACE ANTIGEN Routine 11/08/2023 3:33 PM EDT care in first trimester TYPE AND SCREEN ([facility] [employer]/CGP/CARIE) Routine 11/08/2023 3:33 PM EDT care in first trimester T4, FREE Routine 11/08/2023 3:33 PM EDT documented in this encounter Results * (ABNORMAL) T4, free (11/08/2023 3:33 PM EDT) Free T4 0.85(L) 0.93 - 1.70 ng/dL [facility] Comment: Reference Interval (ng/dL): Females: ??First Trimester: 0.97-1.68 ??Second Trimester: 0.77-1.51 ??Third Trimester: 0.77-1.49 Blood 11/08/2023 3:33 PM EDT 11/08/2023 4:00 PM EDT Narrative Resulting Agency Comment Spec In Lab Lexii Berger CNM CHEMISTRY ORDERABLES Performing Organization Address City/[facility]/ZIP Co de Phone Number [facility] [place] [address] * Type and Screen Validity (11/08/2023 3:33 PM EDT) T&S only valid at [facility] Comment:This Type and Screen result is only valid at the [facility] Hospital Blood 11/08/2023 3:33 PM EDT 11/08/2023 3:47 PM EDT Narrative Resulting Agency Comment Spec In Lab Lexii Berger CN BLOOD BANK LAB ORDER AMANDA Performing Organization Address City/[facility]/ZIP Co de Phone Number [facility] [place] [address] * ABORH Recheck Status (11/08/2023 3:33 PM EDT) ABORH Type Recheck Completed [facility] Blood 11/08/2023 3:33 PM EDT 11/08/2023 3:47 PM EDT Narrative Resulting Agency Comment Spec In Lab Lexii Berger CNM BLOOD BANK LAB ORDER AMANDA [facility] [place] [address] * Type and screen ([facility] [employer]/CGP/CARIE) (11/08/2023 3:33 PM EDT) [facility] [address] ABORH Type A POSITIVE [facility] Patient BB History Found [facility] Expires at [id number] on: 11-08-2023 [facility] Ab Screen Interp Negative [facility] Blood 11/08/2023 3:33 PM EDT 11/08/2023 3:[address] [facility] - 11/08/2023 3:33 PM EDT This Type and Screen result is only valid at the [facility] Hospital Resulting Agency Comment Spec In Lab Lexii Berger [facility] BLOOD BANK LAB ORDER AMANDA [facility] [place] [address] * HIV Screen, 4th Generation ([facility] [employer]/CGP/APD/NLH) (11/08/2023 3:33 PM EDT) [facility] [address] HIV Ab/Ag Screen Negative Negative [facility] Comment: This 4th Generation HIV [...] HIV Comment Low Risk of HIV Infection [facility] Blood 11/08/2023 3:33 PM EDT 11/08/2023 3:50 PM EDT Narrative Resulting Agency Comment Spec In Lab Lexii Berger [facility] CHEMISTRY ORDERABLES [facility] [place] [address] * Syphilis Screening Antibody with reflex RPR (11/08/2023 3:33 PM EDT) Syphilis IgG/IgM Negative Negative [facility] Blood 11/08/2023 3:33 PM EDT 11/08/2023 3:50 PM EDT Narrative Resulting Agency Comment Spec In Lab Lexii Berger CNM CHEMISTRY ORDERABLES [facility] [place] [address] * (ABNORMAL) Differential, Automated (11/08/2023 3:33 PM EDT) Pathologist [facility] Neutrophil % 70.6 % [facility] Neutrophil Absolute 6.25(H) 1.70 - 6.10 x10(3)/mc L [facility] Lymph % 19.6 % [facility] Lymphocytes Abs 1.7 0.9 - 3.2 x10(3)/ L [facility] Monocyte % 8.2 % [facility] Monocyte Abs 0.7 0.3 - 0.9 x10(3)/ L [facility] Eos % 0.8 % [facility] Eosinophils Abs 0.1 0.0 - 0.4 x10(3)/ L [facility] Basophil % 0.5 % [facility] Baso Absolute 0.0 0.0 - 0.1 x10(3)/mc L [facility] Immature Gran % 0.30 % [facility] Comment: Immature granulocytes(IG's)percentage and absolute count will include metamyelocytes, myelocytes, and promyelocytes. Blood smears from CBCs yielding IG's will be scanned manually for concordance. If this scan disagrees with the automated IG or if promyelocytes are noted, a manual differential will be performed. Immature Gran Absolute 0.03 0.00 - 0.04 x10(3)/mc L [facility] Blood 11/08/2023 3:33 PM EDT 11/08/2023 3:50 PM EDT Narrative Resulting Agency Comment Spec In Lab Lexii Khan Ab CNM HEMATOLOGY ORDERABLE S [facility] [place] [address] * (ABNORMAL) Hemogram (11/08/2023 3:33 PM EDT) White Blood Cell 8.9 4.0 - 9.5 x10(3)/mc L [facility] Red Blood Cell 3.39(L) 4.00 - 5.21 x10(6)/mc L [facility] Hemoglobin 11.4(L) 11.7 - 15.5 g/dL [facility] Hematocrit 33.7(L) 35.7 - 45.8 % [facility] Mean Cell Volume 99.4(H) 82.6 - 94.[address] [facility] Mean Cell Hemoglobin 33.6(H) 27.1 - 32.[address] [facility] Mean Cell Hemoglobin Concentration 33.8 31.7 - 35.0 g/dL [facility] Platelet 204 145 - 357 x10(3)/mc L [facility] RDW Standard Deviation 50.7(H) 37.0 - 46.0 [facility] RDW coefficient of variation 13.9 11.5 - 14.1 % [facility] Mean Platelet Volume 10.8 7.6 - 12.9 [facility] NRBC% auto 0.0 % [facility] NRBC Absolute 0.000 0.000 - 0.000 x10(3)/ L [facility] Blood 11/08/2023 3:33 PM EDT 11/08/2023 3:50 PM EDT Narrative Resulting Agency Comment Spec In Lab Lexii Berger CNM HEMATOLOGY ORDERABLE S [facility] [place] [address] * Rubella Antibody, IgG (11/08/2023 3:33 PM EDT) Pathologist [facility] Rubella Antibody IgG Positive Positive [facility] Comment: Please note: ??A positive result for this assay indicates that antibody levels are >or= 10.0 IU/mL and is considered to be an indicator of positive immune status. Blood 11/08/2023 3:33 PM EDT 11/08/2023 3:50 PM EDT Narrative Resulting Agency Comment Spec In Lab Lexii Berger CNM CHEMISTRY ORDERABLES Performing Organization Address City/[facility]/ZIP Co de Phone Number [facility] [place] [address] * Hepatitis B Surface Antigen (11/08/2023 3:33 PM EDT) Pathologist [facility] Hepatitis B Surface Antigen Negative Negative [facility] Blood 11/08/2023 3:33 PM EDT 11/08/2023 3:50 PM EDT Narrative Resulting Agency Comment Spec In Lab Lexii Berger CNM CHEMISTRY ORDERABLES Performing Organization Address [facility]/ZIP Co de Phone Number [facility] [place] [address] * Hepatitis C Antibody (11/08/2023 3:33 PM EDT) Hepatitis C Antibody Negative Negative [facility] Blood 11/08/2023 3:33 PM EDT 11/08/2023 3:50 PM EDT Narrative Resulting Agency Comment Spec In Lab Lexii Berger CNM CHEMISTRY ORDERABLES Performing Organization Address City/[facility]/ZIP Co de Phone Number [facility] [place] [address] * (ABNORMAL) TSH [place] (11/08/2023 3:33 PM EDT) Thyroid Stimulating Hormone 30.70(H) 0.27 - 4.20 mcIU/mL [facility] Comment: Reference Interval (mcIU/mL): Females: ??First Trimester: 0.23-3.88 ??Second Trimester: 0.22-3.90 ??Third Trimester: 0.44-4.66 Blood 11/08/2023 3:33 PM EDT 11/08/2023 3:50 PM EDT Narrative Resulting Agency Comment Spec In Lab Lexii Bill Ab CNM CHEMISTRY ORDERABLES [facility] [place] [address] documented in this encounter Visit Diagnoses Diagnosis care in first trimester documented in this encounter Care Teams Embedded Case Manager Relationship Specialty Start Date End Date Richard Rasheed MD [address] [place] [address] PCP - General Family Medicine 07/05/23 documented as of this encounter
--- OUTSIDE RECORDS SUMMARY | 2024-02-21 14:44 | XMS_ITS | Encounter Summary ---
[place] [address] Care Team Providers Care Resolution Agent Name Role Phone Valencia Adhikari APRN Primary Care Provider [phone] Encounter Details Date Type Department Care Team (Late st Contact Info) Description 12/07/2021 Telephone [place] [address] Magalie Pinon Social History Tobacco [...] calls can be handled by: Any Procedure Retort Pre Cooker documented in this encounter Plan of Treatment Upcoming Encounters Date Type Department Care Team (Late st Contact Info) Description 03/03/2024 3:00 PM EST [place] [address] Linda Diaz MD [facility] [place] [address] 03/03/2024 4:00 PM EST Routine Obstetrics and Gynecology at [address] Linda Diaz MD [facility] [place] [address] 03/03/2024 4:30 PM EST Scheduled View Only Obstetrics and Gynecology at [place] [address] 03/12/2024 10:45 AM EST Office Visit Endocrinology at [place] [address] James Barth DO [facility] [place] [address] 05/23/2024 Hospital [place] [address] Maite Malloy MD [facility] DR OBSTETRICS [place] [address] documented as of this encounter Visit Diagnoses Not on filedocumented in this encounter Care Teams Resolution Agent Relationship Specialty Start Date End Date Valencia Adhikari APRN [address] [place] [address] PCP - General 04/21/14 07/04/23 documented as of this encounter
--- OUTSIDE RECORDS SUMMARY | 2024-02-21 14:44 | XMS_ITS | Encounter Summary ---
Author Organization [facility] [place] [address] Care Team Providers Care Technical Document Writer Name Role Phone Richard Rasheed MD Primary Care Provider [phone] Encounter Details Date Type Department Care Team (Latest Contact Info) Description 11/15/2023 4:05 PM EDT Laboratory Appointment Lab [address] [place] [address] History of delivery, currently ; [...] from your doctor or pharmacy? Never 10/12/2023 [facility] Utilities Answer Date Recorded In the past 12 months has [employer], oil, or water [employer] threatened to shut off services in your [...] 03/03/2024 3:00 PM EST [place] [address] Linda Diaz MD [facility] MATERNAL AND MEDICINE [place], [place] [address] 03/03/2024 4:00 PM EST Routine Obstetrics [place] [address] Linda Diaz MD [facility] [address] [place] [address] 03/03/2024 4:30 PM EST Scheduled View Only Obstetrics [place] [address] 03/12/2024 10:45 AM EST Office Visit [place] [address] James Barth DO [facility] [place] [address] 05/23/2024 [place] [address] Maite Malloy MD [facility] DR OBSTETRICS [place] [address] documented as of this encounter Procedures Procedure Name Priority Date/Time Associated Diagnosis Comments PANORAMA SCREEN Routine 11/15/2023 4:10 PM EDT History of delivery, currently TSH CASCADE Routine 11/15/2023 4:10 PM EDT History of delivery, currently Hypothyroidism, postsurgical T4, FREE Routine 11/15/2023 4:10 PM EDT documented in this encounter Results * T4, free (11/15/2023 4:10 PM EDT) Free T4 0.96 0.93 - 1.70 ng/dL [facility] Comment: Reference Interval (ng/dL): Females: ??First Trimester: 0.97-1.68 ??Second Trimester: 0.77-1.51 ??Third Trimester: 0.77-1.49 Blood 11/15/2023 4:10 PM EDT 11/15/2023 4:30 PM EDT Narrative Resulting Agency Comment Spec In Lab E Jessica Bay MD CHEMISTRY ORDERAB LES [facility] [place] [address] * Panorama Screen (11/15/2023 4:10 PM EDT) Ramesh Report Summary LOW RISK [facility] Comment:LOW RISK Ramesh Report Note See Notes M [facility] Trisomy 21 Result (ROM) Low Risk [facility] Trisomy 18 Result (ROM) Low Risk [facility] Trisomy 13 Result (ROM) Low Risk [facility] Monosomy X Result (ROM) Low Risk [facility] Triploidy Result (ROM) Low Risk [facility] Sex of Fetus Female [facility] Ramesh Footnotes See Notes MAR Y [facility] Comment: Testing Methodology DNA isolated from maternal blood, which contains placental DNA, is amplified at specific loci using a targeted PCR assay and is sequenced using a high-throughput sequencer. fraction is determined using a proprietary algorithm incorporating data from single nucleotide polymorphism-based (SNP-based) next-generation sequencing [Pertsering E et al. Obstet Gynecol. 2014 Nov;124(2 [...] appropriate. Disclaimers This test was performed by [facility]. [address], [place] [address] (CLIA ID [id number]). The performance characteristics of this test were developed by [facility]. This test has not been cleared or approved by the U.S. Food and Drug Administration (FDA). This laboratory is regulated under CLIA as qualified to perform high-complexity testing. ??202 [facility]. All Rights Reserved. Please refer to the attached PDF report Reviewed By: Isabel Ascencio M.D., Ph.D., [facility], Senior Preforming Machine Operator CLIA Pantry Goods Maker: Eric Weinberg, Ph.D., [facility] IF THE ORDERING PROVIDER HAS QUESTIONS OR WISHES TO DISCUSS THE RESULTS, PLEASE CONTACT US AT [phone] #3. Ask for the NIPT genetic counselor tong hooker. Blood 11/15/2023 4:10 PM EDT 11/16/2023 7:47 AM EDT E Jessica Bay MD LAB SEND OUT ORDE RABJAN Performing Organization Address [facility]/ZIP Co de Phone Number [facility] [place] [address] * (ABNORMAL) TSH [place] (11/15/2023 4:10 PM EDT) Thyroid Stimulating Hormone 35.00(H) 0.27 - 4.20 mcIU/mL [facility] Comment: Reference Interval (mcIU/mL): Females: ??First Trimester: 0.23-3.88 ??Second Trimester: 0.22-3.90 ??Third Trimester: 0.44-4.66 Blood 11/15/2023 4:10 PM EDT 11/15/2023 4:24 PM EDT Narrative Resulting Agency Comment Spec In Lab E Jessica Bay MD CHEMISTRY ORDERAB LES Performing Organization Address [facility]/ZIP Co de Phone Number [facility] [place] [address] documented in this encounter Visit Diagnoses Diagnosis History of delivery, currently with history of pre-term labor Hypothyroidism, postsurgical Postsurgical hypothyroidism documented in this encounter Care Teams Technical Document Writer Relationship Specialty Start Date End Date Richard Rasheed MD [address] [place] [address] PCP - General Family Medicine 07/05/23 documented as of this encounter
--- OUTSIDE RECORDS SUMMARY | 2024-02-21 14:44 | XMS_ITS | Encounter Summary ---
[place] [address] Care Team Providers Care Multimedia Coordinator Name Role Phone OnofreMarilyn pittshrryan Barton [place] Primary Care Provider [phone] Encounter Details Date Type Department Care Team (Late st Contact Info) Description 09/21/2021 Telephone [place] [address] Genet Johnston Social History Tobacco [...] 03/03/2024 3:00 PM [place] [address] Linda Diaz MD [facility] DR MATERNAL [place] [address] 03/03/2024 4:00 PM EST Routine Obstetrics and Gynecology at [place] [phone] Linda Diaz MD [facility] [address] MATERNAL [place] [address] 03/03/2024 4:30 PM EST Scheduled View Only Obstetrics and Gynecology at [place] [phone] 03/12/2024 10:45 AM EST Office [place] [address] James Barth DO [facility] DR [place] [address] 05/23/2024 [place] [address] Maite Malloy MD [facility] DR OBSTETRICS [place] [address] documented as of this encounter Visit Diagnoses Not on filedocumented in this encounter Care Teams Multimedia Coordinator Relationship Specialty Start Date End Date Valencia Adhikari, TRUCK SAFETY INSPECTOR [address] [place] [address] PCP - General 04/21/14 07/04/23 documented as of this encounter
--- OUTSIDE RECORDS SUMMARY | 2024-02-21 14:45 | XMS_ITS | Encounter Summary ---
[place] [address] Care Team Providers Care Surgical Services Director Name Role Phone Valencia Adhikari APRN Primary Care Provider [phone] Reason for Referral * Consultation (Routine) - Closed Specialty Diagnoses / Procedures Referred By Lamont riggins Referred To Contact Gastroenterology Diagnoses Irregular bowel habits Irregular bowel habits Valencia Adhikari APRN [address] [place] [address] [facility] [place] [address] Referral ID Status Reason Start Date Expiration Date V isits Requested Visits Authorized [id number] Closed Consult, Test & Treat 06/27/2021 06/27/2022 1 1 Encounter Details Date Type Department Care Team (Latest Contact Info) Description 06/27/2021 Transcribe Orders eDH Incoming Referrals [phone] Valencia Adhikari APRN [address] [place] [address] Irregular bowel habits Social History [...] 03/03/2024 3:00 PM EST Appointment Radiology at [place] [address] Linda Diaz MD [facility] [place] [address] 03/03/2024 4:00 PM EST Routine Obstetrics [place] [address] Linda Diaz MD [facility] [place] [address] 03/03/2024 4:30 PM EST Scheduled View Only Obstetrics and Gynecology at [place] [phone] 03/12/2024 10:45 AM EST Office Visit Endocrinology at [address] James Barth DO [facility] [place] [address] 05/23/2024 Hospital Encounter Birthing [place] [phone] Maite Malloy MD [facility] OBSTETRICS [place] [address] Scheduled Referrals Name Type Priority Associated Diagnoses Order Schedule Referral to Gastroenterology Outpatient Referral Routine Irregular bowel habits Ordered: 06/27/2021 documented as of this encounter Visit Diagnoses Diagnosis Irregular bowel habits Other specified disorder of intestines documented in this encounter Care Teams Surgical Services Director Relationship Specialty Start Date End Date Valencia Adhikari APRN [address] [place] [address] PCP - General 04/21/14 07/04/23 documented as of this encounter
--- OUTSIDE RECORDS SUMMARY | 2024-02-21 14:45 | XMS_ITS | Encounter Summary ---
[place] [address] Care Team Providers Care Book Sewer Name Role Phone Valencia Adhikari APRN Primary Care Provider [phone] Encounter Details Date Type Department Care Team (Late st Contact Info) Description 05/18/2020 Telephone Psychiatry [place] [address] Sary Harris Social History Tobacco [...] 03/03/2024 3:00 PM [place] [address] Linda Diaz MD [facility] [place] [address] 03/03/2024 4:00 PM EST Routine Obstetrics and Gynecology at [place] [address] Linda Diaz MD [facility] [address] [place]NAL [place] [address] 03/03/2024 4:30 PM EST Scheduled View Only Obstetrics and Gynecology at [place] [address] 03/12/2024 10:45 AM EST Office Visit Endocrinology at [place] [address] James Barth DO [facility] [place] [address] 05/23/2024 Hospital Encounter Birthing [place] [address] Maite Malloy MD [facility] DR OBSTETRICS [place] [address] documented as of this encounter Visit Diagnoses Not on filedocumented in this encounter Care Teams Book Sewer Relationship Specialty Start Date End Date Valencia Adhikari APRN [address] [place] [address] PCP - General 04/21/14 07/04/23 documented as of this encounter
--- OUTSIDE RECORDS SUMMARY | 2024-02-21 14:45 | XMS_ITS | Encounter Summary ---
Author Organization [facility] Address [facility] [place] [address] Care Team Providers Care Securities Sales Associate Name Role Phone Valencia Adhikari APRN Primary Care Provider +1 -[phone] Encounter Details Date Type Department Care Team (Late st Contact Info) Description 03/14/2021 Telephone Psychiatry [place] [address] Mary Bateman Social History Tobacco [...] 03/03/2024 3:00 PM [place] [address] [facility] [place] [address] 03/03/2024 4:00 PM EST Routine Obstetrics [place] [address] [facility] [place] [address] 03/03/2024 4:30 PM EST Scheduled View Only Obstetrics [place] [address] 03/12/2024 10:45 AM EST Office [place] [address] [facility] [place] [address] 05/23/2024 [place] [address] [facility] DR OBSTETRICS [place] [address] documented as of this encounter Visit Diagnoses Not on filedocumented in this encounter Care Teams Securities Sales Associate Relationship Specialty Start Date End Date Valencia Adhikari APRN [address] [place] [address] PCP - General 04/21/14 07/04/23 documented as of this encounter
--- OUTSIDE RECORDS SUMMARY | 2024-02-21 14:45 | XMS_ITS | Encounter Summary ---
Author Organization [facility] Address [facility] [place] [address] Care Team Providers Care Embryology Professor Name Role Phone Valencia Adhikari APRN Primary Care Provider +1 [phone] Encounter Details Date Type Department Care Team (Latest Contact Info) Description 05/18/2021 2:30 PM EST TH Visit (TeleHealth) Psychiatry [place] [address] Crispin Fuller MD [facility] [place] [address] Borderline personality disorder Social History Tobacco Use [...] Patient This patient was seen with supervisor paint department Dr. Awad. See their note for confirmatory and/or revisionarydocumentation. Andree Hummel gave permission for and was seen for today's appointment with a Telehealth visit. During this visit they were located in [place]. Andree Hummel is aware that for any urgent matter they can call: If you are located in [place], please call your local community crisis line at [place]: [facility] [phone],[place]: [facility] [phone], or text [place] to [phone] For further information for [place] residents: [email or web address] To reach your mental health clinician or the outpatient Department of Psychiatry clinics: [phone] Chief Complaint: Its been a lot History [...] cats and a dog. 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 Vitals (24hr Range): No data found. Musculoskeletal System: normal gait and balance, ambulates independently and no atrophy Mental Status Exam: ?? Appearance: age appropriate and casually dressed, purple hair ?? Behavior: cooperative with the interview and calm ?? Speech: normal pitch, normal volume, normal rate and normal rhythm ?? Language: fluent in romansh ?? Mood: a little better ?? Affect: [...] PHYSICIAN INVOLVEMENT Location: Adult Psychiatry Medication Clinic, [facility] 5D Attending Physician: Jessica Awad MD Resident [...] 03/03/2024 3:00 PM EST [place] [address] Linda Diaz MD [facility] DR MATERNAL [place] [address] 03/03/2024 4:00 PM EST Routine Obstetrics [place] [address] Linda Diaz MD [facility] DR MATERNAL [place] [address] 03/03/2024 4:30 PM EST Scheduled View Only Obstetrics [place] [address] 03/12/2024 10:45 AM EST Office [place] [address] James Barth DO [facility] [place] [address] 05/23/2024 Hospital [place] [address] Maite Malloy MD [facility] DR OBSTETRICS [place] [address] documented as of this encounter Visit Diagnoses Diagnosis Borderline personality disorder documented in this encounter Care Teams Embryology Professor Relationship Specialty Start Date End Date Valencia Adhikari APRN [address] [place] [address] PCP - General 04/21/14 07/04/23 documented as of this encounter
--- OUTSIDE RECORDS SUMMARY | 2024-02-21 14:45 | XMS_ITS | Encounter Summary ---
[place] [address] Care Team Providers Care Cloth Winding Supervisor Name Role Phone Onofre Valencia Barton APRN Primary Care Provider +1 -[phone] Encounter Details Date Type Department Care Team (Late st Contact Info) Description 07/14/2021 Telephone [place] [address] Snehal Madsen CCMA Social History [...] Department Care Team (Late Contact Info) Description 03/03/2024 3:00 PM [place] [address] Linda Diaz MD [facility] MATERNAL [place] [address] 03/03/2024 4:00 PM EST Routine Obstetrics and Gynecology at [place] [address] Linda Diaz MD [facility] DR MATERNAL [place] [address] 03/03/2024 4:30 PM EST Scheduled View Only Obstetrics and Gynecology at [place] [address] 03/12/2024 10:45 AM EST Office Visit Endocrinology at [place] [address] James Barth DO [facility] DR [place] [address] 05/23/2024 Hospital Encounter Birthing [place] [address] Maite Malloy MD [facility] DR OBSTETRICS [place] [address] documented as of this encounter Visit Diagnoses Not on filedocumented in this encounter Care Teams Cloth Winding Supervisor Relationship Specialty Start Date End Date Valencia Adhikari APRN [address] [place] [address] PCP - General 04/21/14 07/04/23 documented as of this encounter
--- OUTSIDE RECORDS SUMMARY | 2024-02-21 14:45 | XMS_ITS | Encounter Summary ---
Author Organization [facility] Address [facility] [place] [address] Care Team Providers Care Global President Name Role Phone Valencia Adhikari APRN Primary Care Provider +1 [phone] Encounter Details Date Type Department Care Team (Late st Contact Info) Description 05/23/2021 Telephone Psychiatry and [place] [phone] Lisa Dickens, PhD [facility] [place] [address] Social History Tobacco Use Types Packs/Day Years [...] 03/03/2024 3:00 PM EST Appointment Radiology at [place] [address] Linda Diaz MD [facility] [place] [address] 03/03/2024 4:00 PM EST Routine Obstetrics and Gynecology at [place] [address] Linda Diaz MD [facility] [place] [address] 03/03/2024 4:30 PM EST Scheduled View Only Obstetrics and Gynecology at [place] [address] 03/12/2024 10:45 AM EST Office Visit Endocrinology at [place] [address] James Barth DO [facility] [place] [address] 05/23/2024 Hospital Encounter Birthing [place] [phone] Maite Malloy MD [facility] DR OBSTET[place]ICS [place] [address] documented as of this encounter Visit Diagnoses Diagnosis Borderline personality disorder Unspecified mood (affective) disorder documented in this encounter Care Teams Global President Relationship Specialty Start Date End Date Valencia Adhikari APRN [address] [place] [address] PCP - General 1/6/15 3/20/24 documented as of this encounter
--- OUTSIDE RECORDS SUMMARY | 2024-02-21 14:45 | XMS_ITS | Encounter Summary ---
Author Organization [facility] Address [facility] [place] [address] Care Team Providers Care Intrusion Analyst Name Role Phone Valencia Adhikari APRN Primary Care Provider +1 -[phone] Encounter Details Date Type Department Care Team (Latest Contact Info) Description 05/02/2021 3:00 PM EST TH Visit (TeleHealth) Psychiatry [place] [phone] Lisa Dickens, PhD [facility] [place] [address] Borderline personality disorder; Unspecified mood (affective) disorder [...] EST INDIVIDUAL THERAPY PROGRESS NOTE CPT CODE 45410 LOCATION: Telephone office visit. Andree Artislliams gave permission for and was seen for today's appointment with a Telephone office visit. During this visit she was located in her apartment in [place], [place]. Toshaaaron Hummel is aware that for any urgent matter she can can contact her regional mental health crisis services. For patients located in [place]: www.[employer] or text/call . For patients located in [place]: [email or web address].[email or web address]/services/emergency-services/[email or web address]-[email or web address]. To reach their [facility] mental health clinician or the outpatient Department of Psychiatry clinics, patient can call [phone]. SESSION DURATION: 30 minutes ATTENDEES: Patient PRIMARY [...] 03/03/2024 3:00 PM EST Appointment [place] [address] Linda Diaz MD [facility] [place] [address] 03/03/2024 4:00 PM EST Routine Obstetrics [place] [address] Linda Diaz MD [facility] [place] [address] 03/03/2024 4:30 PM EST Scheduled View Only Obstetrics and Gynecology at [address] 03/12/2024 10:45 AM EST Office Visit Endocrinology at [address] James Barth DO [facility] [place] [address] 05/23/2024 Hospital Encounter Birthing [place] [phone] Maite Malloy MD [facility] DR [place] [address] documented as of this encounter Visit Diagnoses Diagnosis Borderline personality disorder Unspecified mood (affective) disorder documented in this encounter Care Teams Intrusion Analyst Relationship Specialty Start Date End Date Valencia Adhikari APRN [address] [place] [address] PCP - General 04/21/14 07/04/23 documented as of this encounter
--- OUTSIDE RECORDS SUMMARY | 2024-02-21 14:45 | XMS_ITS | Encounter Summary ---
Author Organization [facility] Address [facility] [place] [address] Care Team Providers Care Chair Installer Name Role Phone Valencia Adhikari APRN Primary Care Provider +1 -[phone] Encounter Details Date Type Department Care Team (Latest Contact Info) Description 08/04/2021 11:00 AM EDT TH Visit (TeleHealth) Psychiatry [place] [address] Lisa Dickens, PhD [facility] [place] [address] Unspecified mood (affective) disorder; Borderline personality disorder [...] EDT INDIVIDUAL THERAPY PROGRESS NOTE CPT CODE 40378 LOCATION: Telehealth visit. Andree SinghTamara gave permission for and was seen for today's appointment with a Telehealth visit. During this visit she was located in her apartment in [place], [place]. Andree Hummel is aware that for any urgent matter she can can contact her regional mental health crisis services. For patients located in [place]: www.[employer] or text/call . Forpatients located in [place]: [email or web address].[facility]/services/emergency-[email or web address]. To reach their [facility] [place] mental health clinician or the outpatient Department of Psychiatry clinics,patient can call [phone]. SESSION DURATION: 40 minutes ATTENDEES: Patient PRIMARY COMPLAINT/DIAGNOSIS: Borderline Personality Disorder; Unspecified Mood Disorder; R/O PTSD TREATMENT MODALITY: DBT PATIENT REPORT OF CURRENT FUNCTIONING/CHANGES: Patient reported: -woke up today and has been crying all day, doesn't know why and doesn't like it -under immense stress, car is in shop and can't go to appt at [facility], hasn't been able to call a retention representative yet due to fears about how much [...] 3:00 PM EST [place] [address] Linda Diaz MD [facility] [place] [address] 03/03/2024 4:00 PM EST Routine Obstetrics [place] [address] Linda Diaz MD [facility] [place] [address] 03/03/2024 4:30 PM EST Scheduled View Only Obstetrics [place] [address] 03/12/2024 10:45 AM EST Office Visit [place] [address] James Barth DO [facility] [place] [address] 05/23/2024 [place] [address] Maite Malloy MD [facility] DR OBSTETRICS [place] [address] documented as of this encounter Visit Diagnoses Diagnosis Unspecified mood (affective) disorder Borderline personality disorder documented in this encounter Care Teams Chair Installer Relationship Specialty Start Date End Date Valencia Adhikari APRN [address] [place] [address] PCP - General 04/21/14 07/04/23 documented as of this encounter
--- OUTSIDE RECORDS SUMMARY | 2024-02-21 14:45 | XMS_ITS | Encounter Summary ---
Author Organization [facility] Address [facility] [place] [address] Care Team Providers Care Offline Editor Name Role Phone Valencia Adhikari APRN Primary Care Provider +1 -[phone] Encounter Details Date Type Department Care Team (Latest Contact Info) Description 05/09/2021 3:00 PM EST TH Visit (TeleHealth) Psychiatry [place] [address] Lisa Dickens, PhD [facility] [place] [address] Unspecified mood (affective) disorder; Borderline personality disorder [...] EST INDIVIDUAL THERAPY PROGRESS NOTE CPT CODE 84174 LOCATION: Telehealth visit. Andree Artislliams gave permission for and was seen for today's appointment with a Telehealth visit. During this visit she was located in her apartment in [place], [place] is aware that for any urgent matter she can can contact her regional mental health crisis services. For patients located in [place]: [email or web address] or text/call . Forpatients located in [place]: [email or web address].[place].[facility]/services/emergency-services/lal-vih-hgpm. To reach their [facility] mental health clinician or the outpatient Department of Psychiatry clinics,patient can call [phone]. SESSION DURATION: 40 minutes ATTENDEES: Patient PRIMARY [...] 03/03/2024 3:00 PM EST Appointment Radiology at [place] [phone] Linda Diaz MD [facility] MATERNAL [place] [address] 03/03/2024 4:00 PM EST Routine Obstetrics [place] [address] Linda Diaz MD [facility] [place]ERNAL [place] [address] 03/03/2024 4:30 PM EST Scheduled View Only Obstetrics [place] [address] 03/12/2024 10:45 AM EST Office Visit [place] [address] James Barth DO [facility] [place] [address] 05/23/2024 [place] [address] Maite Malloy MD [facility] DR OBSTETRICS [place] [address] documented as of this encounter Visit Diagnoses Diagnosis Unspecified mood (affective) disorder Borderline personality disorder documented in this encounter Care Teams Offline Editor Relationship Specialty Start Date End Date Valencia Adhikari APRN [address] [place] [address] PCP - General 04/21/14 07/04/23 documented as of this encounter
--- OUTSIDE RECORDS SUMMARY | 2024-02-21 14:45 | XMS_ITS | Encounter Summary ---
Author Organization [facility] Address [facility] [place] [address] Care Team Providers Care Jumpbasting Canvas Baster Name Role Phone Valencia Adhikari APRN Primary Care Provider +1 -[phone] Encounter Details Date Type Department Care Team (Latest Contact Info) Description 05/16/2021 3:00 PM EST TH Visit (TeleHealth) Psychiatry [place] [address] Lisa Dickens, PhD [facility] [place] [address] Unspecified mood (affective) disorder; Borderline personality disorder [...] EST INDIVIDUAL THERAPY PROGRESS NOTE CPT CODE 99345 LOCATION: Telehealth visit. Andree Artislliams gave permission for and was seen for today's appointment with a Telehealth visit. During this visit she was located in her apartment in [place], [place]. Andree Hummel is aware that for any urgent matter she can can contact her regional mental health crisis services. For patients located in [place]: www.[employer] or text/call . Forpatients located in [place]: [email or web address].[place]/services/emergency-services/ysv-xyt-lgns. To reach their [facility] mental health clinician or the outpatient Department of Psychiatry clinics,patient can call [phone]. SESSION DURATION: 40 minutes ATTENDEES: Patient PRIMARY [...] 03/03/2024 3:00 PM EST [place] [address] Linda Diaz MD [facility] [place] [address] 03/03/2024 4:00 PM EST Routine Obstetrics [place] [address] Linda Diaz MD [facility] [place] [address] 03/03/2024 4:30 PM EST Scheduled View Only Obstetrics [place] [address] 03/12/2024 10:45 AM EST Office Visit Endocrinology at [place] [phone] James Barth DO [facility] [place] [address] 05/23/2024 Hospital [place] [address] Maite Malloy MD [facility] DR OBSTETRICS [place] [address] documented as of this encounter Visit Diagnoses Diagnosis Unspecified mood (affective) disorder Borderline personality disorder documented in this encounter Care Teams Jumpbasting Canvas Baster Relationship Specialty Start Date End Date Valencia Adhikari APRN [address] [place] [address] PCP - General 04/21/14 07/04/23 documented as of this encounter
--- OUTSIDE RECORDS SUMMARY | 2024-02-21 14:45 | XMS_ITS | Encounter Summary ---
Author Organization [facility] Address [facility] [place] [address] Care Team Providers Care Blocklayer Name Role Phone Valencia Adhikari APRN Primary Care Provider +1 -[phone] Encounter Details Date Type Department Care Team (Late st Contact Info) Description 05/02/2021 Telephone Psychiatry [place] [address] Mary Bateman Social History Tobacco [...] 03/03/2024 3:00 PM [place] [address] Linda Diaz MD [facility] [place]ERNAL [place] [address] 03/03/2024 4:00 PM EST Routine Obst[place] [address] Linda Diaz MD [facility] [place]ERNAL [place] [address] 03/03/2024 4:30 PM EST Scheduled View Only Obst[place] [address] 03/12/2024 10:45 AM EST Office [place] [address] James Barth DO [facility] [place] [address] 05/23/2024 [place] [address] Maite Malloy MD [facility] DR OBSTETRICS [place] [address] documented as of this encounter Visit Diagnoses Not on filedocumented in this encounter Care Teams Blocklayer Relationship Specialty Start Date End Date Valencia Adhikari APRN [address] [place] [address] PCP - General 04/21/14 07/04/23 documented as of this encounter
--- OUTSIDE RECORDS SUMMARY | 2024-02-21 14:45 | XMS_ITS | Encounter Summary ---
Author Organization [facility] Address [facility] [place] [address] Care Team Providers Care Signal Constructor Name Role Phone Valencia Adhikari APRN Primary Care Provider +1 -[phone] Reason for Visit * Reason Onset Date Comments Medication Refill 05/11/2021 Encounter Details Date Type Department Care Team (Late st Contact Info) Description 05/11/2021 [place] [address] Maite Goff, RN Social History [...] 03/03/2024 3:00 PM [place] [address] [facility] [place] [address] 03/03/2024 4:00 PM EST Routine Obstetrics [place] [address] [facility] [place] [address] 03/03/2024 4:30 PM EST Scheduled View Only Obstetrics and Gynecology at [address] 03/12/2024 10:45 AM EST Office Visit Endocrinology at [address] [facility] [place] [address] 05/23/2024 Hospital Encounter Birthing [place] [phone] [facility] DR OBSTETRICS [place] [address] documented as of this encounter Visit Diagnoses Not on filedocumented in this encounter Care Teams Signal Constructor Relationship Specialty Start Date End Date Valencia Adhikari APRN [address] [place] [address] PCP - General 04/21/14 07/04/23 documented as of this encounter
--- OUTSIDE RECORDS SUMMARY | 2024-02-21 14:45 | XMS_ITS | Encounter Summary ---
Author Organization [facility] Address [facility] [place] [address] Care Team Providers Care Publication Designer Name Role Phone OnofreMarilynValencia Oralia SLADE Primary Care Provider +1 -[phone] Encounter Details Date Type Department Care Team (Late st Contact Info) Description 05/14/2020 Orders Only Psychiatry [place] [address] Crispin Fuller MD [facility] [place] [address] Social History Tobacco Use Types Packs/Day Years [...] 03/03/2024 3:00 PM EST [place] [address] Linda Diaz MD [facility] [place] [address] 03/03/2024 4:00 PM EST Routine Obstetrics [place] [address] Linda Diaz MD [facility] [place] [address] 03/03/2024 4:30 PM EST Scheduled View Only Obstetrics and Gynecology at [address] 03/12/2024 10:45 AM EST Office Visit Endocrinology at [place] [address] James Barth DO [facility] [place] [address] 05/23/2024 Hospital Encounter Birthing [place] [phone] Maite Malloy MD [facility] DR OBSTETRICS [place] [address] documented as of this encounter Visit Diagnoses Not on filedocumented in this encounter Care Teams Publication Designer Relationship Specialty Start Date End Date Valencia Adhikari APRN [address] [place] [address] PCP - General 04/21/14 07/04/23 documented as of this encounter
--- OUTSIDE RECORDS SUMMARY | 2024-02-21 14:45 | XMS_ITS | Encounter Summary ---
Author Organization [facility] Address [facility] [place] [address] Care Team Providers Care Control Clerk Auditing Name Role Phone Valencia Adhikari APRN Primary Care Provider +1 [phone] Encounter Details Date Type Department Care Team (Latest Contact Info) Description 06/27/2021 3:00 PM EDT TH Visit (TeleHealth) Psychiatry [place] [phone] Lisa Dickens, PhD [facility] [place] [address] Unspecified mood (affective) disorder; Borderline personality disorder [...] EDT INDIVIDUAL THERAPY PROGRESS NOTE CPT CODE 73975 LOCATION: Telehealth visit. Andree SinghTamara gave permission for and was seen for today's appointment with a Telehealth visit. During this visit she was located in her apartment in [place], [place]. Andree Hummel is aware that for any urgent matter she can can contact her regional mental health crisis services. For patients located in [place]: [email or web address] or text/call . Forpatients located in [place]: [email or web address]. To reach their [facility] mental health clinician or the outpatient Department of Psychiatry clinics,patient can call [phone]. SESSION DURATION: 30 minutes ATTENDEES: Patient PRIMARY [...] 03/03/2024 3:00 PM EST Appointment Radiology at [place] [phone] Linda Diaz MD [facility] [place] [address] 03/03/2024 4:00 PM EST Routine Obstetrics [place] [phone] Linda Diaz MD [facility] MATERNAL [place] [address] 03/03/2024 4:30 PM EST Scheduled View Only Obstetrics [place] [phone] 03/12/2024 10:45 AM EST Office Visit Endocrinology at [place] [phone] James Barth, [facility] [place] [address] 05/23/2024 Hospital Encounter Birthing [facility] [place] [phone] Maite Malloy MD [facility] OBSTETRICS [place] [address] documented as of this encounter Visit Diagnoses Diagnosis Unspecified mood (affective) disorder Borderline personality disorder documented in this encounter Care Teams Control Clerk Auditing Relationship Specialty Start Date End Date Valencia Adhikari APRN [address] [place] [address] PCP - General 04/21/14 07/04/23 documented as of this encounter
--- OUTSIDE RECORDS SUMMARY | 2024-02-21 14:45 | XMS_ITS | Encounter Summary ---
Author Organization [facility] Address [facility] [place] [address] Care Team Providers Care Service Loss Control Consultant Name Role Phone Valencia Adhikari APRN Primary Care Provider +1 [phone] Reason for Visit * Consultation (Routine) - Closed Specialty Diagnoses / Procedures Referred By Lamont riggisn Referred To Contact Endocrinology Diagnoses Thyroiditis, unspecified Valencia Adhikari APRN [address] [place] [address] [facility] [address] [place] [id number] Referral ID Status Reason Start Date Expiration Date V isits Requested Visits Authorized [id number] Closed Consult, Test & Treat Connection Center PCP Updated and/or Approved 01/17/2021 01/17/2022 12 12 Encounter Details Date Type Department Care Team (Latest Contact Info) Description 04/26/2021 11:00 AM EST TH Visit (TeleHealth) [place] [address] Shelli Kearns MD [facility] [place] [address] Obinna's thyroiditis; Hypothyroidism, postsurgical; Vitamin D insufficiency; [...] lesions: The specimen is serially sectioned and [facility] Provider: JUAN ESPARZA Pt. Name: ALONSO HUMMEL Acc #: [id number] Pt. Col Date: 03/22/2011 /Sex: 1990,(20 years),Female Rec Date: 03/22/2011 LOC: [facility] SURGICAL PATHOLOGY demonstrates diffuse, tam-yellow, nodular proliferations in both lobes and isthmus. Contour/Capsule: The capsule of the thyroid appears to abut these nodules and is somewhat distortedby them. Sections/Processing: (1-20) serial sections of right lobe from superior to inferior; (21-40) left lobe from superior to inferior including enlarged parathyroid; (41-44) promotions representative sections of isthmus; (45-50) serial sections [...] from outside and recheck lab soon at [facility] lab. If TSH remains high, we [...] Lab: check lab today or soon at [facility] for TSH, FT4, 25vitD, B12, iron/TIBC. [...] ?The specimen is serially sectioned and ? [facility] ? Provider: ?? JUAN ESPARZA Pt. Name: ?? ALONSO HUMMEL ? E ? Acc #: ?[id number] ?Pt. ? Col Date: ?? 03/22/2011 ? [...] from outside and recheck lab soon at [facility] lab. She feels tired all the [...] Not on file Occupational History ??? 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 Smoking status: Current Every [...] from outside and recheck lab soon at [facility] lab. If TSH remains high, we [...] Lab: check lab today or soon at [facility] for TSH, FT4, 25vitD, B12, iron/TIBC. [...] 03/03/2024 3:00 PM EST [place] [address] Linda Diaz MD [facility] [place] [address] 03/03/2024 4:00 PM EST Routine Obstetrics [place] [phone] Linda Diaz MD [facility] [place] [address] 03/03/2024 4:30 PM EST Scheduled View Only Obstetrics [place] [phone] 03/12/2024 10:45 AM EST Office [place] [address] James Barth DO [facility] [place] [address] 05/23/2024 Hospital [place] [phone] Maite Malloy MD [facility] [place] [address] documented as of this encounter Visit Diagnoses Diagnosis Obinna's thyroiditis Chronic lymphocytic thyroiditis Hypothyroidism, postsurgical Postsurgical hypothyroidism Vitamin D insufficiency Unspecified vitamin D deficiency Chronic fatigue Other malaise and fatigue documented in this encounter Care Teams Service Loss Control Consultant Relationship Specialty Start Date End Date Valencia Adhikari APRN [address] [place] [address] PCP - General 04/21/14 07/04/23 documented as of this encounter
--- OUTSIDE RECORDS SUMMARY | 2024-02-21 14:45 | XMS_ITS | Encounter Summary ---
Author Organization [facility] Address [facility] [place] [address] Care Team Providers Care Sewer Pipe Cleaner Name Role Phone Valencia Adhikari APRN Primary Care Provider [phone] [phone] Reason for Visit * Consultation (Routine) - Closed Specialty Diagnoses / Procedures Referred By Lamont riggins Referred To Contact Gastroenterology Diagnoses Irregular bowel habits Irregular bowel habits Valencia Adhikari APRN [address] [place] [address] [facility] [place] [address] [address] Referral ID Status Reason Start Date Expiration Date V isits Requested Visits Authorized [id number] Closed Consult, Test & Treat 06/27/2021 06/27/2022 1 1 Encounter Details Date Type Department Care Team (Latest Contact Info) Description 07/14/2021 11:00 AM EDT TH Visit (TeleHealth) [place] [phone] Margarita Hector APRN [facility] [place] [address] Vitamin D deficiency; Iron deficiency [...] DIAGNOSTIC C. Difficile Screen Stool Culture Screen ([facility]/P/APD/NL) Gliadin (Deamidated) Antibodies Calprotectin, Stool Elastase, Stool *Lab orders have been faxed to [facility]* Please call the GI department to schedule the investigations if you do not hear from us within 1-2 weeks: [phone]. Endoscopy Scheduling: please call [phone] to schedule the procedures we discussed during [...] Hector APRN Department of Gastroenterology and Hepatology [facility] Here is some information on the [...] disease, or Ulcerative colitis. Also if the it administrative assistant sees any polyps, they will be removed [...] Maite Flores APRN + Margarita Hector APRN [facility] What are functional [...] what is the impact? 15-20% of general [place] population has IBS or FD or both 2nd most common cause for lost work days (after common cold) in [place] Estimated $30 billion dollar cost to [place] economy per year These disorders can have [...] with immediate onset of symptoms after infection); press tender long goods symptoms are expected in most patients however [...] to you primary care provider and/or local it administrative assistant and share this document. Treatment of functional [...] - this approach benefits most patients OTC (mppo-htq-kocrust) medications can be used for ongoing bothersome symptoms as listed below Your provider (PCP or local Gastroenterology provider or [facility] provider) may decide to use [...] All-Bran psyllium buds, Metamucil, Konsyl, bulk psyllium ([employer] and [employer] stores) Specifically we recommend starting Metamucil or [...] but convincing medical evidence is still lacking Wqsr-ktg-wqvjdxn supplements including probiotics are not typically evaluated [...] to decrease antibiotic-associated diarrhea and antibiotic-related infections Gcty-ikn-Zrqjpss Medications for Functional Gut Disorders Based on [...] a stool softener that is safe for press tender long goods usage (no risk of dependency) andthe dosage [...] (GERD) Often a combination of anti-nausea medications (gvxq-lxt-zgmzsdp or prescription) works better thanhigh doses of [...] for misuse/misinterpretation of this information Patient Resources [place] [employer] https://www.gastro.org/practice-guidance/mb-cimycyo-hgzrzi/ topic/wlncquzmi-hvfsa-xicvezql-ibs Badgut.org https://badgut.org/information-centre/h-o-lwdelequd-topics/ibs/ AboutIBS.org https://www.aboutibs.org/ Uptodate.com https://www.uptodate.com/contents/jgxbqzygp-poufp-cnqpgjgf-kjlblv-mic-vodony documented in this encounter Progress Notes * [...] been inconsistent for past decade -recently saw director emergency: low IgA when checking for celiac -celiac in uncle -sister and her have shi's -gluten free helped sister's symptoms -single mom: gluten free is challenging financially -irregular bowel movements: -diagnosed with IBS at 17: EGD/colonoscopy (polyps in colon?) BM: sometimes 5-6/day for a week, then normal daily [place]: variable consistency but usually 5-6 Endorses steatorrhea, [...] stressors with ex boyfriend and son 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 Nerves, Trunk Or Head ([id number]) (03/22/2011); [place] tooth extraction; Upper gastrointestinal endoscopy; Colonoscopy; and [...] anxiety, depression, s/p thyroidectomy. Pt reports previous EGD/[place] at [facility] in 2007 normal except for [...] need to get some testing done at [facility] if not available at [facility] -consider referral to java manager at follow up Therapeutics: -Begin Metamucil [...] LABS NEGATIVE ONLY -consider trial FODMAP diet/seeing java manager after EGD/colo complete -can consider increasing [...] EGD/colo complete The patient was located in [place] at the time of their visit. TIME SPENT WITH PATIENT Time spent reviewing records prior to this encounter on day of appointment: 5 minutes Time spent during encounter with patient including counselin minutes Time spent documenting encounter after office visit: 10 minutes Margarita Hector APRN [facility] [place] [id number] documented in this encounter Plan of Treatment Upcoming Encounters Date Type Department Care Team (Late st Contact Info) Description 03/03/2024 3:00 PM EST Appointment Radiology at [place] [phone] Linda Diaz MD [facility] [place] [address] 03/03/2024 4:00 PM EST Routine Obstetrics [place] [phone] Linda Diaz MD [facility] [place] [address] 03/03/2024 4:30 PM EST Scheduled View Only Obstetrics [place] [address] 03/12/2024 10:45 AM EST Office Visit Endocrinology at [place] [phone] James Barth DO [facility] [place] [address] 05/23/2024 [place] [phone] Maite Malloy MD [facility] DR OBSTETRICS [place] [address] documented as of this encounter Visit Diagnoses [...] pain documented in this encounter Care Teams Sewer Pipe Cleaner Relationship Specialty Start Date End Date Valencia Adhikari APRN [address] [place] [address] PCP - General 04/21/14 07/04/23 documented as of this encounter
--- OUTSIDE RECORDS SUMMARY | 2024-02-21 14:45 | XMS_ITS | Encounter Summary ---
[place] [address] Care Team Providers Care Delivery Recruiter Name Role Phone Valencia Adhikari APRN Primary Care Provider [phone] [phone] Encounter Details Date Type Department Care Team (Late st Contact Info) Description 05/11/2020 Telephone Psychiatry [place] [address] Sary Harris Social History Tobacco [...] 03/03/2024 3:00 PM EST [place] [address] Linda Diaz MD [facility] [place] [address] 03/03/2024 4:00 PM EST Routine Obstetrics and Gynecology at [place] [address] Linda Diaz MD [facility] [place] [address] 03/03/2024 4:30 PM EST Scheduled View Only Obstetrics and Gynecology at [place] [address] 03/12/2024 10:45 AM EST Office Visit Endocrinology at [place] [address] James Barth DO [facility] [place] [address] 05/23/2024 Hospital Encounter Birthing [place] [phone] Maite Malloy MD [facility] DR OBSTETRICS [place] [address] documented as of this encounter Visit Diagnoses Not on filedocumented in this encounter Care Teams Delivery Recruiter Relationship Specialty Start Date End Date Valencia Adhikari APRN [address] [place] [address] PCP - General 04/21/14 07/04/23 documented as of this encounter
--- OUTSIDE RECORDS SUMMARY | 2024-02-21 14:45 | XMS_ITS | Encounter Summary ---
Author Organization [facility] Address [facility] [place] [address] Care Team Providers Care Sales Compensation Analyst Name Role Phone Valencia Adhikari APRN Primary Care Provider [phone] [phone] Encounter Details Date Type Department Care Team (Latest Contact Info) Description 07/27/2021 3:30 PM EDT TH Visit (TeleHealth) Psychiatry [place] [phone] Crispin Fuller MD [facility] [place] [address] Borderline personality disorder; Substance use disorder Social [...] Attendee(s): Patient This patient was seen with vendor quality supervisor Dr. Awad. See their note for confirmatory and/or revisionarydocumentation. Andree Hummel gave permission for and was seen for today's appointment with a Telehealth visit. During this visit they were located in [place]. Andree Hummel is aware that for any urgent matter they can call: If you are located in [place], please call your local community crisis line at [place]: [facility] [phone],[place]: [facility] [phone], or text [place] to [phone] For further information for [place] residents: [email or web address]-[email or web address]-riln To reach your mental health clinician or the outpatient Department of Psychiatry clinics: [phone] Chief Complaint: Its bad History of Present [...] therapist to pursue outpatient substance treatment through [facility] with plans for first visit next . [...] cats and a dog. 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 Vitals (24hr Range): No data found. Musculoskeletal System: normal gait and balance, ambulates independently and no atrophy Mental Status Exam: ?? Appearance: age appropriate and casually dressed ?? Behavior: cooperative with the interview and calm ?? Speech: normal pitch, normal volume, normal rate and normal rhythm ?? Language: fluent in [place] ?? Mood: terrrible ?? Affect: constricted ?? [...] to engage in outpatient substance treatment at [facility] starting next and reports a goal of [...] associated legal issues. Has an appointment at [facility] next week. Reports using cannabis, drinking a six-pack weekly. Reports depressed mood. Denies suicidalideation. Plan today to change Effexor to XR and increase to 150mg daily, continue mirtazapine 15mgqHS. Jessica Awad MD documented in this encounter Plan of Treatment Upcoming Encounters Date Type Department Care Team (Late st Contact Info) Description 03/03/2024 3:00 PM EST Appointment Radiology at [place] [phone] Linda Diaz MD [facility] [place] [address] 03/03/2024 4:00 PM EST Routine Obstetrics and Gynecology at [address] Linda Diaz MD [facility] [place] [address] 03/03/2024 4:30 PM EST Scheduled View Only Obstetrics and Gynecology at [place] [phone] 03/12/2024 10:45 AM EST Office Visit Endocrinology at [address] James Barth DO [facility] ENDOCRINOLOGY [place] [address] 05/23/2024 Hospital Encounter Birthing [place] [phone] Maite Malloy MD [facility] OBSTETRICS AND [place] [address] documented as of this encounter Visit Diagnoses Diagnosis Borderline personality disorder Substance use disorder documented in this encounter Care Teams Sales Compensation Analyst Relationship Specialty Start Date End Date Valencia Adhikari APRN [address] [place] [address] PCP - General 04/21/14 07/04/23 documented as of this encounter
--- OUTSIDE RECORDS SUMMARY | 2024-02-21 14:45 | XMS_ITS | Encounter Summary ---
Author Organization [facility] Address [facility] [place] [address] Care Team Providers Care Photostatic Copy Maker Name Role Phone Valencia Adhikari APRN Primary Care Provider [phone] [phone] Encounter Details Date Type Department Care Team (Latest Contact Info) Description 03/21/2021 11:00 AM EST TH Visit (TeleHealth) Psychiatry [place] [phone] Lisa Dickens, PhD [facility] DR [place] [address] Unspecified mood (affective) disorder; Borderline personality disorder [...] EST INDIVIDUAL THERAPY PROGRESS NOTE CPT CODE 79148 LOCATION: Telehealth. Toshaaaron Hummel gave permission for and was seen for today's appointment with a Telehealth visit. During this visit she was located in her apartment in [place], [place]. Andree Cespedesiams is aware that for any urgent matter she can call [phone]. SESSION DURATION: 40 minutes ATTENDEES: Patient PRIMARY [...] 03/03/2024 3:00 PM EST Appointment Radiology at [place] [phone] Linda Diaz MD [facility] [place] [address] 03/03/2024 4:00 PM EST Routine Obstetrics and Gynecology at [place] [phone] Linda Diaz MD [facility] MATERNAL [place] [address] 03/03/2024 4:30 PM EST Scheduled View Only Obstetrics and Gynecology at [place] [phone] 03/12/2024 10:45 AM EST Office Visit Endocrinology at [place] [phone] James Barth DO [facility] [place] [address] 05/23/2024 Hospital [place] [phone] Maite Malloy MD [facility] DR OBSTETRICS [place] [address] documented as of this encounter Visit Diagnoses Diagnosis Unspecified mood (affective) disorder Borderline personality disorder documented in this encounter Care Teams Photostatic Copy Maker Relationship Specialty Start Date End Date Valencia Adhikari APRN [address] [place] [address] PCP - General 04/21/14 07/04/23 documented as of this encounter
--- OUTSIDE RECORDS SUMMARY | 2024-02-21 14:45 | XMS_ITS | Encounter Summary ---
Author Organization [facility] [place] [address] Care Team Providers Care Indoor Landscape Architect Name Role Phone Valencia Adhikari APRN Primary Care Provider +1 [phone] Encounter Details Date Type Department Care Team (Latest Contact Info) Description 08/18/2021 9:18 PM EDT - 08/18/2021 11:59 PM EDT [place] [phone] Substance use disorder Discharge Disposition: Home Social [...] 03/03/2024 3:00 PM [place] [address] Linda Diaz MD [facility] [place] [address] 03/03/2024 4:00 PM EST Routine Obstetrics [place] [phone] Linda Diaz MD [facility] [place] [address] 03/03/2024 4:30 PM EST Scheduled View Only Obstetrics [place] [phone] 03/12/2024 10:45 AM EST Office [place] [address] James Barth DO [facility] [place] [address] 05/23/2024 Hospital [place] [phone] Maite Malloy MD [facility] OBSTETRICS AND GYNECOLOGY [facility] [address] documented as of this encounter Procedures Procedure Name Priority Date/Time Associated Diagnosis Comments OPIOIDS CONFIRMATION PANEL, URINE ([place]) Routine 08/18/2021 1:30 PM EDT Substance use disorder RAPID DRUG SCREEN, COMPLIANCE MONITORING Routine 08/18/2021 1:30 PM EDT Substance use disorder HC URINE DRUG SCREEN BY INSTRUMENT Routine 08/18/2021 1:30 PM EDT Substance use disorder ALCOHOL BIOMARKERS CONFIRMATION Routine 08/18/2021 1:30 PM EDT HC [facility] ALCOHOL BIOMARKERS, URINE Routine 08/18/2021 1:30 PM EDT Substance use disorder THC (MARIJUANA), URINE, CONFIRMATION Routine 08/18/2021 1:30 PM EDT documented in this encounter Results * Alcohol Biomarkers Confirmation (08/18/2021 1:30 PM EDT) Ethyl Glucuronide (AUGUST) Cutoff: 250 ng/mL [facility] Comment: Test Performed by: [place] [address] Grocery Department Manager: Griffin Gustafson M.D. Ph.D.; CLIA# [id number] Ethyl Sulfate (2438 Cutoff: 100 ng/mL [facility] Comment: Test Performed by: [facility] [employer] [place] [address] Grocery Department Manager: Griffin Gustafson M.D. Ph.D.; CLIA# [id number] Ethyl Gluc/Sulfate Interpretation (AUGUST) SEE COMMENTS [facility] Comment: Positive. A positive interpretation [...] its performance characteristics determined by [facility] in a manner consistent with CLIA requirements. This test has not been cleared or approved by the U.S. Food and Drug Administration. Test Performed by: [facility] [place] [address] Grocery Department Manager: Griffin Gustafson M.D. Ph.D.; CLIA# [id number] Urine 08/18/2021 1:30 PM EDT 08/19/2021 8:36 AM EDT Narrative Resulting Agency Comment Spec In Lab Jose Angel Miller MD CHEMISTRY ORDERABLES [facility] [place] [address] * THC (Marijuana), Urine Confirmation (08/18/2021 1:30 [...] developed and its performance characteristics ?determined by [facility] in a manner consistent with CLIA ?requirements. This test has not been cleared or approved by ?the U.S. Food and Drug Administration. ?Test Performed by: ?[facility] ?[address] [place] [address] ?Grocery Department Manager: Griffin Gustafson M.D. Ph.D.; CLIA# [id number] [facility] Urine 08/18/2021 1:30 PM EDT 08/19/2021 8:36 AM EDT Narrative Resulting Agency Comment Spec In Lab Jose Angel Miller MD LAB SEND OUT ORDERAB LES [facility] [place] [address] * Opioids Confirmation Panel, Urine (08/18/2021 1:30 PM EDT) Targeted Opioid Panel, Urine (MAY) Test ?Result ? Flag ??Unit ?? RefValue ------- Targeted Opioid Screen, U ??List prescribed opioids ? See medication list ? ---ADDITIONAL INFORMATION------- ?Accuracy and completeness of declared medications on ?reports solely dependent on information submitted by ?client. ??Codeine ? Not Detected ? ng/mL ??Cutoff: 25 ?Tylenol 3 ??Wwghvqd-6-gsgv-g lucuronide ?Not Detected ? ng/mL ??Cutoff: 100 ?Metabolite of codeine ??Morphine ?Not Detected ? ng/mL ??Cutoff: 25 ?Dana Salcedo, MS Contin; Also a minor metabolite (10%) of ?codeine and can be seen in low concentrations (<2,000 ?ng/mL) with poppy seed ingestion. ??Hzzjkrte-5-lrev- glucuronide ? Not Detected ? ng/mL ??Cutoff: 100 ?Metabolite of morphine ??6-monoacetylmorp brigette ?Not Detected ? ng/mL ??Cutoff: 25 ?Metabolite of heroin ??Hydrocodone ? Not Detected ? ng/mL ??Cutoff: 25 ?Lortab, Ramona, Vicodin; Also a very minor metabolite of [...] ?Numorphan, Opana; Also a metabolite of oxycodone. ??Iflfvqdqeta-0-wn ta-glucuronide ?Not Detected ? ng/mL ??Cutoff: 100 [...] ?Not Detected ? ng/mL ??Cutoff: 25 ?Narcan ??Ghsmobyx-1-pqdo- glucuronide ? Not Detected ? ng/mL ??Cutoff: [...] developed and its performance characteristics ?determined by [facility] in a manner consistent with CLIA ?requirements. This test has not been cleared or approved by ?the U.S. Food and Drug Administration. ?Test Performed by: ?[facility] ?[address] [facility], [place] [address] ?Grocery Department Manager: Griffin Gustafson M.D. Ph.D.; CLIA# [id number] [facility] Urine 08/18/2021 1:30 PM EDT 08/19/2021 8:36 AM EDT Jose Angel Miller MD LAB SEND OUT ORDERAB LES [facility] [place] [address] * (ABNORMAL) Rapid Drug Screen, Compliance Monitoring (08/18/2021 1:30 PM EDT) Barbiturates Screen, Urine None Detected None Detected [facility] Comment: The barbiturate screen detects [...] Benzodiazepines Screen, Urine None Detected None Detected [facility] Comment: The benzodiazepines screen detects [...] Cocaine Screen, Urine None Detected None Detected [facility] Comment: The cocaine metabolites screen detects benzoylecgonine (Cocaine Metabolite) at concentrations >150 ng/mL. A ? Presumptive Positive? result indicates that the screening result was positive but has not yet been confirmed by a highly-specific method. As with any screen, occasional false positive results from cross-reacting substances may occur. Not for Medico-Legal Purposes. Cannabinoid Screen, Urine Presumptive Pos(A) None Detected [facility] Comment: The marijuana metabolites screen detects the THC metabolite (96-hmo-6-carboxy-delta 9-THC) at concentrations >20 ng/mL. A ? Presumptive Positive? result indicates that the screening result was positive but has not yet been confirmed by a highly-specific method. As with any screen, occasional false positive results from cross-reacting substances may occur. Not for Medico-Legal Purposes. Tricyclics Screen, Urine None Detected None Detected [facility] Comment: The tricyclics screen detects [...] Ethanol Screen, Urine None Detected None Detected [facility] Comment:This urine ethanol a ssay detects ethanol at concentrations >/= 100 mg/L. Amphetamines Screen, Urine None Detected None Detected [facility] Comment: The amphetamine screen detects d-amphetamine and d-methamphetamine at concentrations >300 ng/mL. A ? Presumptive Positive? result indicates that the screening result was positive but has not yet been confirmed by a highly-specific method. As with any screen, occasional false positive results from cross-reacting substances may occur. Not for Medico-Legal Purposes. Adulterants Screen, Urine None Detected None Detected [facility] Comment: No adulteration or dilution of this urine sample was detected. All urine samples submitted for urine drugs of abuse analysis are tested for creatinine concentration, pH, and for the presence of oxidants, nitrites, and chromate. Urine 08/18/2021 1:30 PM EDT 08/18/2021 9:33 PM EDT Narrative Resulting Agency Comment Spec In Lab Jose Angel Miller MD URINE ORDERABLES [facility] [place] [address] * (ABNORMAL) Alcohol Biomarkers (08/18/2021 1:30 PM EDT) Ethyl Glucuronide Screen (AUGUST) SEE COMMENT(A ) Cutoff: 500 ng/mL [facility] Comment: RESULT: Presumptive Positive Drug confirmation to follow. ??Presumptive Positive means that the screening method is positive, but the test needs to be run by a confirmatory method. ADDITIONAL INFORMATION This test was developed and its performance characteristics determined by [facility] in a manner consistent with CLIA requirements. This test has not been cleared or approved by the U.S. Food and Drug Administration. Test Performed by: [facility] [address] [place] [address] Grocery Department Manager: Griffin Gustafson M.D. Ph.D.; CLIA# [id number] Urine 08/18/2021 1:30 PM EDT 08/19/2021 8:36 AM EDT Narrative Resulting Agency Comment Spec In Lab Jose Angel Miller MD LAB SEND OUT ORDERAB LES [facility] [place] [address] documented in this encounter Visit Diagnoses Diagnosis Substance use disorder documented in this encounter Care Teams Indoor Landscape Architect Relationship Specialty Start Date End Date Valencia Adhikari, AUTOMOTIVE SPECIALTY TECHNICIAN [address] [place] [address] PCP - General 04/21/14 07/04/23 documented as of this encounter
--- OUTSIDE RECORDS SUMMARY | 2024-02-21 14:45 | XMS_ITS | Encounter Summary ---
Author Organization [facility] Address [facility] [place] [address] Care Team Providers Care Sales And Marketing Representative Name Role Phone OnofreMarilynValenciaadan Barton APRN Primary Care Provider [phone] Reason for Visit * Reason Onset Date Comments Medication Refill 2020 Encounter Details Date Type Department Care Team (Late st Contact Info) Description 2020 Refill Psychiatry [place] [address] Crispin Fuller MD [facility] [place] [address] Anxiety Social History Tobacco Use Types Packs/Day [...] 03/03/2024 3:00 PM [place] [address] Linda Diaz MD [facility] [place] [address] 03/03/2024 4:00 PM EST Routine Obstetrics and Gynecology at [place] [phone] Linda Diaz MD [facility] DR MATERNAL [place] [address] 03/03/2024 4:30 PM EST Scheduled View Only Obstetrics and Gynecology at [address] 03/12/2024 10:45 AM EST Office Visit Endocrinology at [address] James Barth DO [facility] [place] [address] 05/23/2024 Hospital [place] [address] Maite Malloy MD [facility] DR [place] [address] documented as of this encounter Visit Diagnoses Diagnosis Anxiety Anxiety state, unspecified documented in this encounter Care Teams Sales And Marketing Representative Relationship Specialty Start Date End Date Valencia Adhikari APRN [address] [place] [address] PCP - General 04/21/14 07/04/23 documented as of this encounter
--- OUTSIDE RECORDS SUMMARY | 2024-02-21 14:45 | XMS_ITS | Encounter Summary ---
Author Organization [facility] Address [facility] [place] [address] Care Team Providers Care Mate Fourth Name Role Phone Valencia Adhikari APRN Primary Care Provider [phone] [phone] Encounter Details Date Type Department Care Team (Late st Contact Info) Description 07/15/2020 Telephone Psychiatry [place] [phone] Lisa Dickens, PhD [facility] [place] [address] Social History Tobacco Use Types Packs/Day Years [...] scheduled session on 07/22 or call our business support associate at [phone]. Diagnosis: Borderline Personality Disorder; Unspecified Mood Disorder Plan: Pt will attend next scheduled visit on 07/22/20. documented in this encounter Plan of Treatment Upcoming Encounters Date Type Department Care Team (Late st Contact Info) Description 03/03/2024 3:00 PM EST Appointment Radiology at [address]1000 Linda Diaz MD [facility] [place] [address] 03/03/2024 4:00 PM EST Routine Obstetrics and Gynecology at [place] [phone] Linda Diaz MD [facility] [place] [address] 03/03/2024 4:30 PM EST Scheduled View Only Obstetrics and Gynecology at [address] 03/12/2024 10:45 AM EST Office Visit Endocrinology at [address]1000 James Barth DO [facility] [place] [address] 05/23/2024 Hospital Encounter Birthing [place] [phone] Maite Malloy MD [facility] DR OBSTETRICS [place] [address] documented as of this encounter Visit Diagnoses Diagnosis Borderline personality disorder Unspecified mood (affective) disorder documented in this encounter Care Teams Mate Fourth Relationship Specialty Start Date End Date Valencia Adhikari APRN [address] [place] [address] PCP - General 04/21/14 07/04/23 documented as of this encounter
--- OUTSIDE RECORDS SUMMARY | 2024-02-21 14:45 | XMS_ITS | Encounter Summary ---
Author Organization [facility] Address [facility] [place] [address] Care Team Providers Care Library Customer Service Clerk Name Role Phone Valencia Adhikari APRN Primary Care Provider [phone] [phone] Encounter Details Date Type Department Care Team (Latest Contact Info) Description 07/28/2021 11:00 AM EDT TH Visit (TeleHealth) Psychiatry [place] [phone] Lisa Dickens, PhD [facility] [place] [address] Unspecified mood (affective) disorder; Borderline personality disorder [...] EDT INDIVIDUAL THERAPY PROGRESS NOTE CPT CODE 94649 LOCATION: Telehealth visit. Andree SinghTamara gave permission for and was seen for today's appointment with a Telehealth visit. During this visit she was located in her apartment in [place], [place]. Andree Hummel is aware that for any urgent matter she can can contact her regional mental health crisis services. For patients located in [place]: www.[employer] or text/call . Forpatients located in [place]: [email or web address]. To reach their [facility] mental health clinician or the outpatient Department of Psychiatry clinics,patient can call [phone]. SESSION DURATION: 40 minutes ATTENDEES: Patient PRIMARY COMPLAINT/DIAGNOSIS: Borderline Personality Disorder; Unspecified Mood Disorder TREATMENT MODALITY: DBT PATIENT REPORT OF CURRENT FUNCTIONING/CHANGES: Patient reported: -was late due to internet connectivity problems -appointment at [facility] next week -saw psychiatrist yesterday, upping [...] 03/03/2024 3:00 PM EST Appointment Radiology at [place] [phone] Linda Diaz MD [facility] MATERNAL [place] [address] 03/03/2024 4:00 PM EST Routine Obstetrics [place] [address] Linda Diaz MD [facility] MATERNAL [place] [address] 03/03/2024 4:30 PM EST Scheduled View Only Obstetrics and Gynecology at [place] [phone] 03/12/2024 10:45 AM EST Office Visit [place] [address] James Barth DO [facility] [place] [address] 05/23/2024 Hospital [place] [address] Maite Malloy MD [facility] OBSTETRICS [place] [address] documented as of this encounter Visit Diagnoses Diagnosis Unspecified mood (affective) disorder Borderline personality disorder documented in this encounter Care Teams Library Customer Service Clerk Relationship Specialty Start Date End Date Valencia Adhikari APRN [address] [place] [address] PCP - General 04/21/14 07/04/23 documented as of this encounter
--- OUTSIDE RECORDS SUMMARY | 2024-02-21 14:45 | XMS_ITS | Encounter Summary ---
Author Organization [facility] Address [facility] [place] [address] Care Team Providers Care Day Care Worker Name Role Phone Valencia Adhikari APRN Primary Care Provider [phone] [phone] Encounter Details Date Type Department Care Team (Latest Contact Info) Description 08/18/2021 11:00 AM EDT TH Visit (TeleHealth) Psychiatry [place] [address] Lisa Dickens, PhD [facility] [place] [address] Unspecified mood (affective) disorder; Borderline personality disorder [...] EDT INDIVIDUAL THERAPY PROGRESS NOTE CPT CODE 31325 LOCATION: Telehealth visit. Andree SinghTamara gave permission for and was seen for today's appointment with a Telehealth visit. During this visit she was located in her apartment in [place], [place]. Andree Hummel is aware that for any urgent matter she can can contact her regional mental health crisis services. For patients located in [place]: www.[employer] or text/call . Forpatients located in [place]: [email or web address]. To reach their [facility] mental health clinician or the outpatient Department of Psychiatry clinics,patient can call [phone]. SESSION DURATION: 40 minutes ATTENDEES: Patient PRIMARY COMPLAINT/DIAGNOSIS: Borderline Personality Disorder; Unspecified Mood Disorder; R/O PTSD TREATMENT MODALITY: DBT PATIENT REPORT OF CURRENT FUNCTIONING/CHANGES: Patient reported: -has an appt at [facility], friend Caroline is going with her, [...] 03/03/2024 3:00 PM [place] [phone] Linda Diaz MD [facility] [place] [address] 03/03/2024 4:00 PM EST Routine Obstetrics [place] [address] Linda Diaz MD [facility] [place] [address] 03/03/2024 4:30 PM EST Scheduled View Only Obstetrics [place] [address] 03/12/2024 10:45 AM EST Office [place] [address] James Barth DO [facility] [place] [address] 05/23/2024 Hospital [place] [address] Maite Malloy MD [facility] DR OBSTETRICS AND GYNECOLOGY [place], [place] [phone] documented as of this encounter Visit Diagnoses Diagnosis Unspecified mood (affective) disorder Borderline personality disorder documented in this encounter Care Teams Day Care Worker Relationship Specialty Start Date End Date Valencia Adhikari, SENIOR NETWORK SYSTEMS ENGINEER [address] [place] [address] PCP - General 04/21/14 07/04/23 documented as of this encounter
--- OUTSIDE RECORDS SUMMARY | 2024-02-21 14:45 | XMS_ITS | Encounter Summary ---
Author Organization [facility] Address [facility] [place] [address] Care Team Providers Care Physically Impaired Teacher Name Role Phone Valencia Adhikari APRN Primary Care Provider [phone] [phone] Encounter Details Date Type Department Care Team (Latest Contact Info) Description 04/25/2021 3:00 PM EST TH Visit (TeleHealth) Psychiatry [place] [phone] Lisa Dickens, PhD [facility] [place] [address] Borderline personality disorder Social History Tobacco Use [...] EST INDIVIDUAL THERAPY PROGRESS NOTE CPT CODE 92035 LOCATION: Telephone office visit. Andree Artislliams gave permission for and was seen for today's appointment with a Telephone office visit. During this visit she was located in her apartment in [place], [place]. Andree Godoy Ozielms is aware that for any urgent matter she can can contact her regional mental health crisis services. For patients located in [place]: [email or web address] or text/call . For patients located in [place]: [email or web address]. To reach their [facility] mental health clinician or the outpatient Department of Psychiatry clinics, patient can call [phone]. SESSION DURATION: 40 minutes ATTENDEES: Patient PRIMARY [...] 03/03/2024 3:00 PM EST Appointment Radiology at [address]1000 Linda Diaz MD [facility] [place] [address] 03/03/2024 4:00 PM EST Routine Obstetrics and Gynecology at [place] [phone] Linda Diaz MD [facility] [place] [address] 03/03/2024 4:30 PM EST Scheduled View Only Obstetrics and Gynecology at [place] [phone] 03/12/2024 10:45 AM EST Office Visit Endocrinology at [address]1000 James Barth DO [facility] [place] [address] 05/23/2024 Hospital [place] [phone] Maite Malloy MD [facility] DR OBSTET[place] [address] documented as of this encounter Visit Diagnoses Diagnosis Borderline personality disorder documented in this encounter Care Teams Physically Impaired Teacher Relationship Specialty Start Date End Date Valencia Adhikari APRN [address] [place] [address] PCP - General 04/21/14 07/04/23 documented as of this encounter
--- OUTSIDE RECORDS SUMMARY | 2024-02-21 14:45 | XMS_ITS | Encounter Summary ---
Author Organization [facility] Address [facility] [place] [address] Care Team Providers Care Salt Grinder Name Role Phone Valencia Adhikari APRN Primary Care Provider +1 [phone] Encounter Details Date Type Department Care Team (Latest Contact Info) Description 06/06/2021 3:00 PM EST TH Visit (TeleHealth) Psychiatry [place] [phone] Lisa Dickens, PhD [facility] [place] [address] Borderline personality disorder; Unspecified mood (affective) disorder [...] EST INDIVIDUAL THERAPY PROGRESS NOTE CPT CODE 16372 LOCATION: Telehealth visit. Andree Artislliams gave permission for and was seen for today's appointment with a Telehealth visit. During this visit she was located in her apartment in [place], [place]. Andree Hummel is aware that for any urgent matter she can can contact her regional mental health crisis services. For patients located in [place]: www.[employer] or text/call . Forpatients located in [place]: [email or web address]. To reach their [facility] mental health clinician or the outpatient Department of Psychiatry clinics,patient can call [phone]. SESSION DURATION: 17 minutes ATTENDEES: Patient PRIMARY [...] than 20 minutes as she had to pickle pumper her son CENTRAL THEME OF SESSION: Cognitive [...] 03/03/2024 3:00 PM EST Appointment Radiology at [place] [phone] Linda Diaz MD [facility] [place] [address] 03/03/2024 4:00 PM EST Routine Obstetrics and Gynecology at [place] [phone] Linda Diaz MD [facility] [place] [address] 03/03/2024 4:30 PM EST Scheduled View Only Obstetrics [place] [address] 03/12/2024 10:45 AM EST Office Visit Endocrinology at [place] [phone] James Barth DO [facility] [place] [address] 05/23/2024 Hospital Encounter Birthing [place] [phone] Maite Malloy MD [facility] OBSTETRICS [place] [address] documented as of this encounter Visit Diagnoses Diagnosis Borderline personality disorder Unspecified mood (affective) disorder documented in this encounter Care Teams Salt Grinder Relationship Specialty Start Date End Date Valencia Adhikari APRN [address] [place] [address] PCP - General 04/21/14 07/04/23 documented as of this encounter
--- OUTSIDE RECORDS SUMMARY | 2024-02-21 14:45 | XMS_ITS | Encounter Summary ---
Author Organization [facility] [place] [address] Care Team Providers Care Harp Action Assembler Name Role Phone Valencia Adhikari APRN Primary Care Provider +1 [phone] Encounter Details Date Type Department Care Team (Late st Contact Info) Description 05/10/2021 Telephone [place] [address] Maite Goff RN Social History [...] 03/03/2024 3:00 PM EST Appointment Radiology at [place] [phone] [facility] [place]NAL [place] [address] 03/03/2024 4:00 PM EST Routine Obstetrics [place] [address] [facility] [place] [address] 03/03/2024 4:30 PM EST Scheduled View Only Obstetrics [place] [address] 03/12/2024 10:45 AM EST Office Visit Endocrinology at [place] [phone] [facility] [place] [address] 05/23/2024 Hospital Encounter Birthing [facility] [facility] [place] [phone] Maite Malloy MD [facility] OBSTETRICS [place] [address] documented as of this encounter Visit Diagnoses Not on filedocumented in this encounter Care Teams Harp Action Assembler Relationship Specialty Start Date End Date Valencia Adhikari APRN [address] [place] [address] PCP - General 04/21/14 07/04/23 documented as of this encounter
--- OUTSIDE RECORDS SUMMARY | 2024-02-21 14:45 | XMS_ITS | Encounter Summary ---
Author Organization [facility] Address [facility] [place] [address] Care Team Providers Care Oiler And Greaser Name Role Phone Valencia Adhikari APRN Primary Care Provider [phone] [phone] Encounter Details Date Type Department Care Team (Late st Contact Info) Description 05/14/2020 Telephone Psychiatry [place] [address] Crispin Fuller MD [facility] [place] [address] Social History Tobacco Use Types Packs/Day Years [...] continue with the process to go [place] [facility] [place]. She requested options to consider [...] 03/03/2024 3:00 PM EST Appointment Radiology at [place] [phone] Linda Diaz MD [facility] [place] [address] 03/03/2024 4:00 PM EST Routine Obstetrics [place] [address] Linda Diaz MD [facility] [place] [address] 03/03/2024 4:30 PM EST Scheduled View Only Obstetrics and Gynecology at [place] [phone] 03/12/2024 10:45 AM EST Office Visit Endocrinology at [place] [phone] James Barth DO [facility] [place] [address] 05/23/2024 Hospital Encounter [place] [address] Maite Malloy MD [facility] DR [place] [address] documented as of this encounter Visit Diagnoses Not on filedocumented in this encounter Care Teams Oiler And Greaser Relationship Specialty Start Date End Date Valencia Adhikari APRN [address] [place] [address] PCP - General 04/21/14 07/04/23 documented as of this encounter
--- OUTSIDE RECORDS SUMMARY | 2024-02-21 14:45 | XMS_ITS | Encounter Summary ---
Author Organization [facility] Address [facility] [place] [address] Care Team Providers Care Aniline Press Worker Name Role Phone Valencia Adhikari APRN Primary Care Provider [phone] [phone] Encounter Details Date Type Department Care Team (Latest Contact Info) Description 08/19/2020 1:00 PM EDT TH Visit (TeleHealth) Psychiatry [place] [phone] Lisa Dickens, PhD [facility] [place] [address] Borderline personality disorder; Unspecified mood (affective) disorder [...] EDT INDIVIDUAL THERAPY PROGRESS NOTE CPT CODE 83494 LOCATION: Telehealth. Toshaaaron Artislliams gave permission for and was seen for today's appointment with a Telehealth visit. During this visit she was located in her apartment in [place], [place]. Andree UnderwoodWilliams is aware that for any urgent matter she can call [phone]. SESSION DURATION: 50 minutes ATTENDEES: Patient PRIMARY [...] 03/03/2024 3:00 PM EST Appointment Radiology at [place] [phone] Linda Diaz MD [facility] MATERNAL [place] [address] 03/03/2024 4:00 PM EST Routine Obstetrics [place] [address] Linda Diaz MD [facility] MATERNAL [place] [address] 03/03/2024 4:30 PM EST Scheduled View Only Obstetrics [place] [address] 03/12/2024 10:45 AM EST Office Visit Endocrinology at [address] James Barth DO [facility] [place] [address] 05/23/2024 Hospital [place] [phone] Maite Malloy MD [facility] DR OBSTETRICS [place] [address] documented as of this encounter Visit Diagnoses Diagnosis Borderline personality disorder Unspecified mood (affective) disorder documented in this encounter Care Teams Aniline Press Worker Relationship Specialty Start Date End Date Valencia Adhikari APRN [address] [place] [address] PCP - General 04/21/14 07/04/23 documented as of this encounter
--- OUTSIDE RECORDS SUMMARY | 2024-02-21 14:45 | XMS_ITS | Encounter Summary ---
Author Organization [facility] Address [facility] [place] [address] Care Team Providers Care Policy Analyst Name Role Phone Valencia Adhikari APRN Primary Care Provider +1 [phone] Reason for Visit * Psychiatric - Closed Specialty Diagnoses / Procedures Referred By Lamont riggins Referred To Contact Psychiatry Diagnoses Unspecified mood (affective) disorder Crispin Fuller MD [facility] [place] [address] Lisa Dickens, PhD [facility] [place] [address] Referral ID Status Reason Start Date Expiration Date V isits Requested Visits Authorized [id number] Closed Consult, Test & Treat 02/16/2020 02/15/2021 1 1 Encounter Details Date Type Department Care Team (Latest Contact Info) Description 07/12/2020 9:00 AM EDT TH Visit (TeleHealth) Psychiatry [place] [address] Lisa Dickens, PhD [facility] [place] [address] Borderline personality disorder; Mood disorder Social History [...] EDT INDIVIDUAL THERAPY PROGRESS NOTE CPT CODE 27234 LOCATION: Telehealth. Andree Godoy WallisKamranTamara gave permission for and was seen for today's appointment with a Telehealth visit. During this visit she was located in her apartment in [place], [place]. Andree WallisKamranTamara is aware that for any urgent matter she can call [phone]. SESSION DURATION: 60 minutes ATTENDEES: Patient PRIMARY COMPLAINT/DIAGNOSIS: Borderline Personality Disorder; Unspecified Mood Disorder TREATMENT MODALITY: DBT PATIENT REPORT OF CURRENT FUNCTIONING/CHANGES: This was our initial session. Patient had an evaluation with Dr. Crispin Fuller in February 2020. During today's session, patient reported: -grew up in scientologist [place] household, parents immigrated from [place] and were very scientologist, patient was oldest of 4 biological children, [...] 03/03/2024 3:00 PM EST Appointment Radiology at [address]1000 Linda Diaz MD [facility] [place]ERNAL [place] [address] 03/03/2024 4:00 PM EST Routine Obstetrics and Gynecology at [place] [phone] Linda Diaz MD [facility] MATERNAL [place] [address] 03/03/2024 4:30 PM EST Scheduled View Only Obstetrics and Gynecology at [address] 03/12/2024 10:45 AM EST Office Visit Endocrinology at [address]1000 James Barth DO [facility] [place] [address] 05/23/2024 [place] [address] Maite Malloy MD [facility] DR OBSTETRICS [place] [address] Scheduled Referrals Name Type Priority Associated Diagnoses Order Schedule Referral to Psychology Outpatient Referral Routine Unspecified mood (affective) disorder Ordered: 02/16/2020 documented as of this encounter Visit Diagnoses Diagnosis Borderline personality disorder Mood disorder Unspecified episodic mood disorder documented in this encounter Care Teams Policy Analyst Relationship Specialty Start Date End Date Valencia Adhikari APRN [address] [place] [address] PCP - General 04/21/14 07/04/23 documented as of this encounter
--- OUTSIDE RECORDS SUMMARY | 2024-02-21 14:45 | XMS_ITS | Encounter Summary ---
Author Organization [facility] Address [facility] [place] [address] Care Team Providers Care Match Marker Name Role Phone Valencia Adhikari APRN Primary Care Provider [phone] [phone] Encounter Details Date Type Department Care Team (Latest Contact Info) Description 06/14/2020 10:30 AM EST TH Visit (TeleHealth) Psychiatry [place] [phone] Crispin Fuller MD [facility] [place] [address] Unspecified mood (affective) disorder Social History Tobacco [...] Attendee(s): Patient This patient was seen with warehouse supervisor Dr. Awad. See their note for confirmatory and/or revisionarydocumentation. Andree Hummel gave permission for and was seen for today's appointment with a Telehealth visit. During this visit they were located in [place]. Andree Hummel is aware that for any urgent matter they can call [phone]. Chief Complaint: a lot has been going [...] cats and a dog. 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 Vitals (24hr Range): No data found. Musculoskeletal System: normal gait and balance, ambulates independently and no atrophy Mental Status Exam: ?? Appearance: age appropriate and casually dressed, pink hair ?? Behavior: cooperative with the interview and calm ?? Speech: normal pitch, normal volume, normal rate and normal rhythm ?? Language: fluent in swedish ?? Mood: better ?? Affect: constricted ?? [...] PHYSICIAN INVOLVEMENT Location: [facility], [address] Attending Physician: Jessica Awad MD Resident [...] 3:00 PM EST Appointment Radiology at [address]1000 Linda Diaz MD [facility] DR MATERNAL [place] [address] 03/03/2024 4:00 PM EST Routine Obstetrics and [place]cology [place] [address] Linda Diaz MD [facility] MATERNAL [place] [address] 03/03/2024 4:30 PM EST Scheduled View Only Obstetrics and [place]cology [place] [address] 03/12/2024 10:45 AM EST Office Visit Endocrinology at [place] [address] James Barth DO [facility] DR [place] [address] 05/23/2024 Hospital Encounter Birthing [place] [phone] Maite Malloy MD [facility] DR OBSTETRICS [place] [address] documented as of this encounter Visit Diagnoses Diagnosis Unspecified mood (affective) disorder documented in this encounter Care Teams Match Marker Relationship Specialty Start Date End Date Vlaencia Adhikari APRN [address] [place] [address] PCP - General 04/21/14 07/04/23 documented as of this encounter
--- OUTSIDE RECORDS SUMMARY | 2024-02-21 14:45 | XMS_ITS | Encounter Summary ---
Author Organization [facility] [place] [address] Care Team Providers Care Extruder Name Role Phone Valencia Adhikari APRN Primary Care Provider +1 [phone] Encounter Details Date Type Department Care Team (Late st Contact Info) Description 05/06/2020 Telephone Psychiatry [place] [address] Flora yLon [facility] [place] [address] Social History Tobacco Use Types Packs/Day Years [...] 03/03/2024 3:00 PM EST [place] [address] Linda Diaz MD [facility] MATERNAL [place] [address] 03/03/2024 4:00 PM EST Routine Obstetrics and Gynecology at [place] [phone] Linda Diaz MD [facility] MATERNAL [place] [address] 03/03/2024 4:30 PM EST Scheduled View Only Obstetrics and Gynecology at [address] 03/12/2024 10:45 AM EST Office Visit Endocrinology at [address]1000 James Barth DO [facility] [place] [address] 05/23/2024 Hospital Encounter Birthing [address]1000 Maite Malloy MD [facility] OBSTETRICS [place] [address] documented as of this encounter Visit Diagnoses Not on filedocumented in this encounter Care Teams Extruder Relationship Specialty Start Date End Date Valencia Adhikari APRN [address] [place] [address] PCP - General 04/21/14 07/04/23 documented as of this encounter
--- OUTSIDE RECORDS SUMMARY | 2024-02-21 14:45 | XMS_ITS | Encounter Summary ---
Author Organization [facility] Address [facility] [place] [address] Care Team Providers Care Mill Feeder Name Role Phone Valencia Adhikari APRN Primary Care Provider [phone] [phone] Encounter Details Date Type Department Care Team (Latest Contact Info) Description 07/21/2021 11:00 AM EDT TH Visit (TeleHealth) Psychiatry [place] [address] Lisa Dickens, PhD [facility] [place] [address] Unspecified mood (affective) disorder; Borderline personality disorder [...] EDT INDIVIDUAL THERAPY PROGRESS NOTE CPT CODE 07997 LOCATION: Telehealth visit. Andree SinghTamara gave permission for and was seen for today's appointment with a Telehealth visit. During this visit she was located in her apartment in [place], [place]. Andree Hummel is aware that for any urgent matter she can can contact her regional mental health crisis services. For patients located in [place]: www.[employer] or text/call . Forpatients located in [place]: [email or web address]. To reach their [facility] mental health clinician or the outpatient Department of Psychiatry clinics,patient can call [phone]. 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 worker CENTRAL THEME OF SESSION: Crisis Survival Skills [...] PM EST Appointment Radiology at [place] [phone] Linda Diaz MD [facility] [place] [address] 03/03/2024 4:00 PM EST Routine Obstetrics [place] [address] Linda Diaz MD [facility] [place] [address] 03/03/2024 4:30 PM EST Scheduled View Only Obstetrics [place] [address] 03/12/2024 10:45 AM EST Office [place] [address] James Barth DO [facility] [place] [address] 05/23/2024 Hospital [place] [address] Maite Malloy MD [facility] OBSTETRICS [place] [address] documented as of this encounter Visit Diagnoses Diagnosis Unspecified mood (affective) disorder Borderline personality disorder documented in this encounter Care Teams Mill Feeder Relationship Specialty Start Date End Date Valencia Adhikari APRN [address] [place] [address] PCP - General 04/21/14 07/04/23 documented as of this encounter
--- OUTSIDE RECORDS SUMMARY | 2024-02-21 14:45 | XMS_ITS | Encounter Summary ---
Author Organization [facility] [place] [address] Care Team Providers Care Aviation Program Manager Name Role Phone Valencia Adhikari APRN Primary Care Provider +1 [phone] Reason for Visit * Reason Comments Establish Care Encounter Details Date Type Department Care Team (Late st Contact Info) Description 08/04/2020 10:00 AM EDT Office Visit Obstetrics [place] [phone] Malena Hernandez APRN [facility] [place] [address] Encounter for IUD removal (Primary Dx); Screening [...] MONITORING, SETUP performed by JUAN ESPARZA at [facility] MAIN OR ??? PRO THYROIDECTOMY, IVA STAFFORD NECK SURG 03/22/2011 THYROIDECTOMY, FOR MALIGNANCY, LIMITED NECK DISSECTION performed by JUAN ESPARZA at [facility] MAIN OR ??? TONSILLECTOMY 2010 ??? [...] 03/03/2024 3:00 PM [place] [address] [facility] [place] [address] 03/03/2024 4:00 PM EST Routine Obstetrics [place] [address] [facility] [place] [address] 03/03/2024 4:30 PM EST Scheduled View Only Obstetrics [place] [phone] 03/12/2024 10:45 AM EST Office [place] [phone] [facility] [address] 05/23/2024 Hospital [place] [phone] Maite Malloy MD [facility] [place] [address] documented as of this encounter Procedures Procedure Name Priority Date/Time Associated Diagnosis Comments CT/NG PCR Routine 08/04/2020 10:25 AM EDT STUDENT SUPPORT COUNSELOR CYTOLOGY INTERPRETATION Routine 08/04/2020 10:25 AM EDT STUDENT SUPPORT COUNSELOR CYTOLOGY FINAL REPORT Routine 08/04/2020 10:25 AM EDT CYTOPATHOLOGY GYNECOLOGICAL Routine 08/04/2020 10:25 AM EDT Screening for cervical cancer documented in this encounter Results * STUDENT SUPPORT COUNSELOR Cytology Interpretation (08/04/2020 10:25 AM EDT) Inbound Sales Representative Cytology Interpretation [facility] Comment:Inbound Sales Representative Cytology Final R eport Endocervical Component Present [facility] AP Specimen 08/04/2020 10:2 5 AM EDT 08/16/2020 12:02 PM EDT Malena Hernandez APRN PATHOLOGY/CYT OLOGY ORDERABLES [facility] [place] [address] * Inbound Sales Representative Cytology Final Report (08/04/2020 10:25 AM EDT) Inbound Sales Representative Cytology Final Report [id number] ? Location: 5L The signing pathologist has (i) examined the relevant preparation(s) for the specimen(s) and (ii) rendered or confirmed the diagnosis(es). . ? Inbound Sales Representative Final DIAGNOSIS Infection and/or Reactive Repair Process Note: Reactive changes are present in the epithelial cells (benign cellular changes). This Pap test is negative for intraepithelial lesion or malignancy. (NILM) For consensus guidelines for the management of cervical cancer screening test results, please see: ?? http://www.asccp.o rg . Electronically signed by: ?Lori LIMA, Reji Guzman Verified: ??08/16/2020 12:02 ??Cytopathologist Performed at: ??-[facility]. [facility] [place], [place], [place] HPV RESULTS HPV testing either not indicated or not requested by clinician. STATEMENT OF ADEQUACY Specimen submitted is satisfactory. Endocervical component present. CLINICAL INFORMATION HPV Option: ?Reflex HPV CT/NG Option: ?Yes Preparation: ? Liquid based Pap Specimen Source: ? Cervical/Endocervi shira LMP: ? IUD Hysterectomy: ?No : ?No : ?No I.U.D.: ?No Pelvic Radiation: ?No Hist Abnl Pap/Biopsy: ?No Prior STUDENT SUPPORT COUNSELOR Therapy: ? No Hist of HPV Vaccine: [...] variables. For further information please contact the [facility]. Reference: Rosy ORTIZ. Live Hanger of Pap Smear Results. In: Chelsey BS, Joshua HH, ed. The Pap Smear. [place]: Lázaro, 2002: 71-77. [facility] 08/04/2020 10:2 5 AM EDT Malena Hernandez APRN PATHOLOGY/CYT OLOGY ORDERABLES [facility] [place] [address] * CT/NG PCR (08/04/2020 10:25 AM EDT) Chlamydia Gene Amp Negative Negative [facility] Comment: This assay was performed in the [facility] using the melly?? CT/NG v2.0 Test ([employer] The melly?? CT/NG v2.0 Test [...] asymptomatic individuals. GC Gene Amp Negative Negative [facility] Comment: This assay was performed in the [facility] using the melly?? CT/NG v2.0 Test ([employer] The melly?? CT/NG v2.0 Test [...] ORD ERABLES Performing Organization Address City/[facility] [address]/ZIP Co de Phone Number [facility] [place] [address] * Cytopathology Gynecological (08/04/2020 10:25 AM EDT) AP Specimen 08/04/2020 10:2 5 AM EDT 08/04/2020 10:25 AM EDT Narrative [facility] - 08/04/2020 10:25 AM EDT Specimen requisition ordered. ??Separate Pathology report to follow Malena Hernandez APRN PATHOLOGY/CYT OLOGY ORDERABLES Performing Organization Address [facility] [address]/ZIP Co de Phone Number [facility] [place] [address] documented in this encounter Visit Diagnoses Diagnosis Encounter for IUD removal- Primary Encounter for removal of intrauterine contraceptive device Screening for cervical cancer Screening for malignant neoplasm of the cervix IUD (intrauterine device) in place Presence of intrauterine contraceptive device documented in this encounter Care Teams Aviation Program Manager Relationship Specialty Start Date End Date Valencia Adhikari APRN [address] [place] [address] PCP - General 04/21/14 07/04/23 documented as of this encounter
--- OUTSIDE RECORDS SUMMARY | 2024-02-21 14:45 | XMS_ITS | Encounter Summary ---
Author Organization [facility] Address [facility] [place] [address] Care Team Providers Care Set O Type Operator Name Role Phone Valencia Adhikari APRN Primary Care Provider +1 [phone] Encounter Details Date Type Department Care Team (Late st Contact Info) Description 05/11/2020 Telephone Psychiatry [place] [phone] Crispin Fuller MD [facility] [place] [address] Social History Tobacco Use Types Packs/Day Years [...] 03/03/2024 3:00 PM EST Appointment Radiology at [address] Linda Diaz MD [facility] [place] [address] 03/03/2024 4:00 PM EST Routine Obstetrics [place] [address] Linda Diaz MD [facility] [place] [address] 03/03/2024 4:30 PM EST Scheduled View Only Obstetrics and Gynecology at [address] 03/12/2024 10:45 AM EST Office Visit Endocrinology at [address] James Barth DO [facility] [address] 05/23/2024 Hospital [place] [address] Maite Malloy MD [facility] OBSTETRICS [place] [address] documented as of this encounter Visit Diagnoses Not on filedocumented in this encounter Care Teams Set O Type Operator Relationship Specialty Start Date End Date Valencia Adhikari APRN [address] [place] [address] PCP - General 04/21/14 07/04/23 documented as of this encounter
--- OUTSIDE RECORDS SUMMARY | 2024-02-21 14:45 | XMS_ITS | Encounter Summary ---
Author Organization [facility] Address [facility] [place] [address] Care Team Providers Care Biometrics Specialist Name Role Phone Valencia Adhikari APRN Primary Care Provider +1 [phone] Encounter Details Date Type Department Care Team (Late st Contact Info) Description 05/07/2020 Telephone Psychiatry [place] [address] Mary Bateman Social History Tobacco [...] 03/03/2024 3:00 PM EST Appoint[place] [address] Linda Diaz MD [facility] [place] [address] 03/03/2024 4:00 PM EST Routine Obstetrics [place] [address] Linda Diaz MD [facility] [place] [address] 03/03/2024 4:30 PM EST Scheduled View Only Obstetrics and Gynecology at [place] [phone] 03/12/2024 10:45 AM EST Office Visit [place] [address] James Barth DO [facility] [place] [address] 05/23/2024 Hospital Encounter Birthing [place] [phone] Maite Malloy MD [facility] DR OBSTETRICS [place] [address] documented as of this encounter Visit Diagnoses Not on filedocumented in this encounter Care Teams Biometrics Specialist Relationship Specialty Start Date End Date Valencia Adhikari APRN [address] [place] [address] PCP - General 04/21/14 07/04/23 documented as of this encounter
--- OUTSIDE RECORDS SUMMARY | 2024-02-21 14:45 | XMS_ITS | Encounter Summary ---
Author Organization [facility] Address [facility] [place] [address] Care Team Providers Care Cellular Phone Repairer Name Role Phone OnofreMarilynValencia Oralia SLADE Primary Care Provider +1 [phone] Encounter Details Date Type Department Care Team (Late st Contact Info) Description 06/17/2020 Orders Only Psychiatry [place] [address] Crispin Fuller MD [facility] [place] [address] Social History Tobacco Use Types Packs/Day Years [...] 03/03/2024 3:00 PM [place] [address] Linda Diaz MD [facility] MATERNAL [place] [address] 03/03/2024 4:00 PM EST Routine Obstetrics [place] [address] Linda Diaz MD [facility] MATERNAL [place] [address] 03/03/2024 4:30 PM EST Scheduled View Only Obstetrics and Gynecology at [address] 03/12/2024 10:45 AM EST Office Visit Endocrinology at [place] [address] James Barth DO [facility] [place] [address] 05/23/2024 Hospital Encounter Birthing [place] [phone] Maite Malloy MD [facility] [address] [place] [address] documented as of this encounter Visit Diagnoses Not on filedocumented in this encounter Care Teams Cellular Phone Repairer Relationship Specialty Start Date End Date Valencia Adhikari APRN [address] [place] [address] PCP - General 04/21/14 07/04/23 documented as of this encounter
--- OUTSIDE RECORDS SUMMARY | 2024-02-21 14:45 | XMS_ITS | Encounter Summary ---
Author Organization [facility] Address [facility] [place] [address] Care Team Providers Care High School Drafting Teacher Name Role Phone Valencia Adhikari APRN Primary Care Provider [phone] [phone] Encounter Details Date Type Department Care Team (Late st Contact Info) Description 05/03/2020 10:30 AM EST TH Visit (TeleHealth) Psychiatry and [place] [phone] Crispin Fuller MD [facility] [place] [address] Hyperthyroidism Social History Tobacco Use Types Packs/Day [...] Patient This patient was seen with supervisor accounting clerks Dr. Awad. See their note for confirmatory and/or revisionarydocumentation. Andree Hummel gave permission for and was seen for today's appointment with a Telehealth visit. During this visit they were located in [place]. Andree Hummel is aware that for any urgent matter they can call [phone]. Chief Complaint: a lot has been going on History of Present Illness: () (Quality, Severity, Duration, Timing, Context, Modifying factors, Associated S&S) Andree Hummel is a 29 y.o. female with history of depression, anxiety, and hyperthyroidism s/p thyroidectomy presenting for follow-up and medication management. -Reports she has been busy since we last spoke. She lost her job at [employer],and started working at [employer]. Endorses multiple psychosocial stressors including [...] sleep and no delusional thinking is elicited. nAdree was recently scheduled for a therapy intake [...] cats and a dog. 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 Vitals (24hr Range): No data found. Musculoskeletal System: normal gait and balance, ambulates independently and no atrophy Mental Status Exam: ?? Appearance: age appropriate and casually dressed ?? Behavior: cooperative with the interview and calm ?? Speech: normal pitch, normal volume, normal rate and normal rhythm ?? Language: fluent in mohawk ?? Mood: not great ?? 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 No suicidal ideation. Having difficulty taking medication consistently. No medication changes today--focus on regular adherence first. Jessica Awad MD documented in this encounter Plan of Treatment Upcoming Encounters Date Type Department Care Team (Late st Contact Info) Description 03/03/2024 3:00 PM EST Appointment Radiology at [place] [phone] Linda Diaz MD [facility] DR MATERNAL [place] [address] 03/03/2024 4:00 PM EST Routine Obstetrics and Gynecology at [address]1000 Linda Diaz MD [facility] [address] MATERNAL [place] [address] 03/03/2024 4:30 PM EST Scheduled View Only Obstetrics and Gynecology at [address] 03/12/2024 10:45 AM EST Office Visit Endocrinology at [place] [address] James Barth DO [facility] DR [place] [address] 05/23/2024 Hospital Encounter Birthing [place] [phone] Maite Malloy MD [facility] DR OBSTETRICS [place] [address] documented as of this encounter Visit Diagnoses Diagnosis Hyperthyroidism Thyrotoxicosis without mention of goiter or other cause, without mention of thyrotoxic crisis or storm documented in this encounter Care Teams High School Drafting Teacher Relationship Specialty Start Date End Date Valencia Adhikari APRN [address] [place] [address] PCP - General 04/21/14 07/04/23 documented as of this encounter
--- OUTSIDE RECORDS SUMMARY | 2024-02-21 14:45 | XMS_ITS | Encounter Summary ---
Author Organization [facility] Address [facility] [place] [address] Care Team Providers Care Box Spring Maker Name Role Phone Valencia Adhikari APRN Primary Care Provider [phone] [phone] Encounter Details Date Type Department Care Team (Latest Contact Info) Description 06/13/2021 3:00 PM EST TH Visit (TeleHealth) Psychiatry [place] [phone] Lisa Dickens, PhD [facility] [place] [address] Unspecified mood (affective) disorder; Borderline personality disorder [...] EST INDIVIDUAL THERAPY PROGRESS NOTE CPT CODE 54300 LOCATION: Telehealth visit. Andree Artislliams gave permission for and was seen for today's appointment with a Telehealth visit. During this visit she was located in her apartment in [place], [place]. Andree Hummel is aware that for any urgent matter she can can contact her regional mental health crisis services. For patients located in [place]: www.[employer] or text/call . Forpatients located in [place]: [email or web address]. To reach their [facility] mental health clinician or the outpatient Department of Psychiatry clinics,patient can call [phone]. SESSION DURATION: 40 minutes ATTENDEES: Patient PRIMARY [...] 03/03/2024 3:00 PM EST Appointment Radiology at [address]1000 Linda Diaz MD [facility] [place] [address] 03/03/2024 4:00 PM EST Routine Obstetrics and Gynecology at [place] [phone] Linda Diaz MD [facility] MATERNAL [place] [address] 03/03/2024 4:30 PM EST Scheduled View Only Obstetrics and Gynecology at [place] [phone] 03/12/2024 10:45 AM EST Office Visit Endocrinology at [address]1000 James Barth DO [facility] [place] [address] 05/23/2024 Hospital Encounter [place] [phone] Maite Malloy MD [facility] OBSTETRICS [place] [address] documented as of this encounter Visit Diagnoses Diagnosis Unspecified mood (affective) disorder Borderline personality disorder documented in this encounter Care Teams Box Spring Maker Relationship Specialty Start Date End Date Valencia Adhikari APRN [address] [place] [address] PCP - General 04/21/14 07/04/23 documented as of this encounter
--- OUTSIDE RECORDS SUMMARY | 2024-02-21 14:45 | XMS_ITS | Encounter Summary ---
Author Organization [facility] [place] [address] Care Team Providers Care Stone Cutter Name Role Phone OnofreMarilyn pittshrryan Barton [place] Primary Care Provider [phone] [phone] Encounter Details Date Type Department Care Team (Late st Contact Info) Description 07/14/2021 Telephone [place] [address] Maria Teresa Wheeler Social History [...] 3:12 PM EDT Lab orders faxed to [facility] at the request of KANDIS Hector. documented in this encounter Plan of Treatment Upcoming Encounters Date Type Department Care Team (Late st Contact Info) Description 03/03/2024 3:00 PM EST [place] [address] [facility] [place] [address] 03/03/2024 4:00 PM EST Routine Obstetrics and Gynecology at [place] [phone] [facility] [address] [place] [address] 03/03/2024 4:30 PM EST Scheduled View Only Obstetrics and Gynecology at [place] [phone] 03/12/2024 10:45 AM EST Office Visit [place] [address] [facility] [place] [address] 05/23/2024 Hospital Encounter Birthing [place] [phone] [facility] DR [place] [address] documented as of this encounter Visit Diagnoses Not on filedocumented in this encounter Care Teams Stone Cutter Relationship Specialty Start Date End Date Valencia Adhikari, [place] [address] [place] [address] PCP - General 04/21/14 07/04/23 documented as of this encounter
--- OUTSIDE RECORDS SUMMARY | 2024-02-21 14:45 | XMS_ITS | Encounter Summary ---
Author Organization [facility] Address [facility] [place] [address] Care Team Providers Care Vice President Of Sales Name Role Phone Valencia Adhikari APRN Primary Care Provider [phone] [phone] Encounter Details Date Type Department Care Team (Latest Contact Info) Description 07/29/2020 1:00 PM EDT TH Visit (TeleHealth) Psychiatry [place] [phone] Lisa Dickens, PhD [facility] [place] [address] Borderline personality disorder; Unspecified mood (affective) disorder [...] EDT INDIVIDUAL THERAPY PROGRESS NOTE CPT CODE 44379 LOCATION: Telehealth. Andree Hummel gave permission for and was seen for today's appointment with a Telehealth visit. During this visit she was located in her apartment in [place], [place]. Andree WallisYasir is aware that for any urgent matter she can call [phone]. SESSION DURATION: 50 minutes ATTENDEES: Patient PRIMARY [...] Review the Mindfulness Skills handouts sent via [employer]. Practice Observe Skills. Next Appointment: 08/05/2020 Lisa Dickens, PhD documented in this encounter Plan of Treatment Upcoming Encounters Date Type Department Care Team (Late st Contact Info) Description 03/03/2024 3:00 PM EST Appointment Radiology at [place] [phone] Linda Diaz MD [facility] MATERNAL [place] [address] 03/03/2024 4:00 PM EST Routine Obstetrics and Gynecology at [place] [phone] Linda Diaz MD [facility] MATERNAL [place] [address] 03/03/2024 4:30 PM EST Scheduled View Only Obstetrics and Gynecology at [place] [phone] 03/12/2024 10:45 AM EST Office Visit Endocrinology at [place] [phone] James Barth DO [facility] [place] [address] 05/23/2024 Hospital Encounter Birthing [place] [phone] Maite Malloy MD [facility] OBSTETRICS [place] [address] documented as of this encounter Visit Diagnoses Diagnosis Borderline personality disorder Unspecified mood (affective) disorder documented in this encounter Care Teams Vice President Of Sales Relationship Specialty Start Date End Date Valencia Adhikari APRN [address] [place] [address] PCP - General 04/21/14 07/04/23 documented as of this encounter
--- OUTSIDE RECORDS SUMMARY | 2024-02-21 14:45 | XMS_ITS | Encounter Summary ---
Author Organization [facility] Address [facility] [place] [address] Care Team Providers Care Fur Cutter Name Role Phone Valencia Adhikari APRN Primary Care Provider [phone] Encounter Details Date Type Department Care Team (Latest Contact Info) Description 05/30/2021 3:00 PM EST TH Visit (TeleHealth) Psychiatry [place] [phone] Lisa Dickens, PhD [facility] [place] [address] Unspecified mood (affective) disorder; Borderline personality disorder [...] EST INDIVIDUAL THERAPY PROGRESS NOTE CPT CODE 31935 LOCATION: Telehealth visit. Andree Artislliams gave permission for and was seen for today's appointment with a Telehealth visit. During this visit she was located in her apartment in [place], [place]. Andree Hummel is aware that for any urgent matter she can can contact her regional mental health crisis services. For patients located in [place]: www.[email or web address] or text/call . Forpatients located in [place]: [email or web address]. To reach their [facility] mental health clinician or the outpatient Department of Psychiatry clinics,patient can call [phone]. SESSION DURATION: 40 minutes ATTENDEES: Patient PRIMARY [...] 03/03/2024 3:00 PM EST Appointment Radiology at [place] [phone] Linda Diaz MD [facility] MATERNAL [place] [address] 03/03/2024 4:00 PM EST Routine Obstetrics [place] [phone] Linda Diaz MD [facility] MATERNAL [place] [address] 03/03/2024 4:30 PM EST Scheduled View Only Obstetrics [place] [phone] 03/12/2024 10:45 AM EST Office Visit [place] [address] James Barth DO [facility] [place] [address] 05/23/2024 Hospital Encounter Birthing [facility] [place] [address] Maite Malloy MD [facility] OBSTETRICS [place] [address] documented as of this encounter Visit Diagnoses Diagnosis Unspecified mood (affective) disorder Borderline personality disorder documented in this encounter Care Teams Fur Cutter Relationship Specialty Start Date End Date Valencia Adhikari APRN [address] [place] [address] PCP - General 04/21/14 07/04/23 documented as of this encounter
--- OUTSIDE RECORDS SUMMARY | 2024-02-21 14:46 | XMS_ITS | Encounter Summary ---
Author Organization [facility]ly [facility] [place] [address] Care Team Providers Care Implementation Lead Name Role Phone Valencia Adhikari APRN Primary Care Provider [phone] Encounter Details Date Type Department Care Team (Late st Contact Info) Description 07/04/2018 8:30 AM EDT Office Visit Psychiatry [place] [address] Argelia Mccray [address] [facility] [place] [address] Bipolar II disorder; Depression, unspecified depression type; [...] so soon - continues to work at [employer] Substance Use: Tobacco use Safety: Low, no [...] abnormalities Social History: 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 Language: fluent in occitan ?? Mood: Anxious ?? Affect: mood-congruent ?? [...] these patients send serum separator tube ([facility] top) for subsequent determinations. Contact [...] HA1C Vit Lvls: No results found for: [id number], SFOLATE Tox: No results found for: ETHANOL, ACTMNPHEN, SALICYLATE, LEAD No results found for: UDAUSCREEN Rx Lvls: Lamotrigine Lvl Date Value Ref Range Status 10/04/2017 1.4 (L) 2.5 - 15.0 mcg/mL Final Comment: ADDITIONAL INFORMATION This test was developed and its performance characteristics determined by [facility] in a manner consistent with CLIA requirements. This test has not been cleared or approved by the U.S. Food and Drug Administration. Test Performed by: [facility] [address] [place] [address] Formulation and Assessment: Overall Formulation: Andree Hummel [...] 03/03/2024 3:00 PM EST [place]ointment [place] [phone] Linda Diaz MD [facility] [place] [address] 03/03/2024 4:00 PM EST Routine Obstetrics [place] [address] Linda Diaz MD [facility] [place] [address] 03/03/2024 4:30 PM EST Scheduled View Only Obstetrics [place] [address] 03/12/2024 10:45 AM EST Office [place] [address] James Barth DO [facility] [place] [address] 05/23/2024 [place] [address] Maite Malloy MD [facility] [address] [place] [address] documented as of this encounter Procedures Procedure [...] 9:44 AM EDT) Neutrophil % 60.9 % [facility] Neutrophil Absolute 4.46 1.70 - 6.10 x10(3)/[facility] Lymph % 28.5 % [facility] Lymphocytes Abs 2.1 0.9 - 3.2 x10(3)/[facility] Monocyte % 8.6 % [facility] Monocyte Abs 0.6 0.3 - 0.9 x10(3)/[facility] Eos % 1.2 % [facility] Eosinophils Abs 0.1 0.0 - 0.4 x10(3)/[facility] Basophil % 0.5 % [facility] Baso Absolute 0.0 0.0 - 0.1 x10(3)/[facility] Immature Gran % 0.30 % [facility] Comment: Immature granulocytes(IG's)percentage and absolute count will include metamyelocytes, myelocytes, and promyelocytes. Blood smears from CBCs yielding IG's will be scanned manually for concordance. If this scan disagrees with the automated IG or if promyelocytes are noted, a manual differential will be performed. Immature Gran Absolute 0.02 0.00 - 0.04 x10(3)/[facility] Blood specimen (specimen) 07/04/2018 9:44 AM EDT 07/04/2018 10:05 AM EDT Narrative Resulting Agency Comment Spec In Lab Argelia Mccray APRN HEMATOLOGY ORDE [place]CE[place]ION [facility] [place] [address] * (ABNORMAL) Hemogram (07/04/2018 9:44 AM EDT) White Blood Cell 7.3 4.0 - 9.5 x10(3)/mc L [facility] Red Blood Cell 3.84(L) 4.00 - 5.21 x10(6)/mc L [facility] Hemoglobin 12.9 11.7 - 15.5 gm/dL [facility] Hematocrit 38.7 35.7 - 45.8 % [facility] Mean Cell Volume 100.8(H) 82.6 - 94.4 fL [facility] Mean Cell Hemoglobin 33.6(H) 27.1 - 32.0 pg [facility] Mean Cell Hemoglobin Concentration 33.3 31.7 - 35.0 gm/dL [facility] Platelet 216 145 - 357 x10(3)/mc L [facility] RDW Standard Deviation 47.5(H) 37.0 - 46.0 fL [facility] RDW coefficient of variation 12.8 11.5 - 14.1 % [facility] Mean Platelet Volume 11.6 7.6 - 12.9 fL [facility] NRBC% auto 0.0 % [facility] NRBC Absolute 0.000 0.000 - 0.000 x10(3)/mc L [facility] Blood specimen (specimen) 07/04/2018 9:44 AM EDT 07/04/2018 10:05 AM EDT Narrative Resulting Agency Comment Spec In Lab Argelia Mccray APRN HEMATOLOGY [place] [facility] [place] [address] * Lamotrigine Lvl (07/04/2018 9:44 AM EDT) Lamotrigine Lvl (AUGUST) 3.2 2.5 - 15.0 mcg/mL [facility] Comment: ADDITIONAL INFORMATION This test was developed and its performance characteristics determined by [facility] in a manner consistent with CLIA requirements. This test has not been cleared or approved by the U.S. Food and Drug Administration. Test Performed by: [facility] [address] [place] [address] Blood specimen (specimen) 07/04/2018 9:44 AM EDT 07/04/2018 12:33 PM EDT Narrative Resulting Agency Comment Spec In Lab Argelia Mccray APRN LAB SEND OUT OR DERABLES [facility] [place] [address] * Comprehensive metabolic panel (non-fasting) (07/04/2018 9:44 AM EDT) Pathologist [facility] Glucose 90 65 - 199 mg/dL [facility] Comment:Diabetes: >=200 mg/d L plus symptoms Blood Urea Nitrogen 9 8 - 18 mg/dL [facility] Creatinine 0.78 0.70 - 1.20 mg/dL [facility] Sodium 138 135 - 145 mmol/L [facility] Potassium 3.9 3.5 - 5.0 mmol/L [facility] Comment: Please note: ??Patients with WBC >100,000 may have falsely elevated Potassium levels. ??For accurate Potassium quantification in these patients send serum separator tube (gold top) for subsequent determinations. ??Contact the Clinical Chemistry Laboratory if there are any questions. Chloride 101 98 - 107 mmol/L [facility] Carbon Dioxide 26 22 - 31 mmol/L [facility] Anion Gap 11 5 - 15 mmol/L [facility] Calcium 9.1 8.5 - 10.5 mg/dL [facility] Protein, Total 6.4 6.1 - 8.0 gm/dL [facility] Albumin 4.2 3.2 - 5.2 gm/dL [facility] Aspartate Aminotransferase 12 0 - 30 unit/L [facility] Alanine Aminotransferase 10 0 - 30 unit/L [facility] Alkaline Phosphatase 79 40 - 104 unit/L [facility] Bilirubin, Total 0.4 0.2 - 1.3 mg/dL [facility] Est Glomerular Filtration Rate 104 >=60 mL/min/1. 73 m?? [facility] Comment: The eGFR was calculated using the CKD-EPI equation. As with all creatinine based estimates of kidney function, eGFR values calculated with the CKD-EPI equation are not accurate in patients with acute kidney failure, extremes of body mass or the acutely ill. [email or web address]/[email or web address] CL[facility]OREnkf eGFR 121 >=60 mL/min/1. 73 m?? [facility] Comment: The eGFR was calculated using the CKD-EPI equation. As with all creatinine based estimates of kidney function, eGFR values calculated with the CKD-EPI equation are not accurate in patients with acute kidney failure, extremes of body mass or the acutely ill. [email or web address]/[facility]MCnkf Blood specimen (specimen) 07/04/2018 9:44 AM EDT 07/04/2018 10:04 AM EDT Narrative Resulting Agency Comment Spec In Lab Argelia Mccray APRN CHEMISTRY ORDER AMANDA [facility] [place] [address] * (ABNORMAL) TSH (07/04/2018 9:44 AM EDT) Thyroid Stimulating Hormone 7.30(H) 0.27 - 4.20 mcIU/mL [facility] Blood specimen (specimen) 07/04/2018 9:44 AM EDT 07/04/2018 10:04 AM EDT Narrative Resulting Agency Comment Spec In Lab Argelia Mccray APRN CHEMISTRY ORDER AMANDA Performing Organization Address [facility] Co de Phone Number [facility] [place] [address] * Thyroglobulin Antibody (07/04/2018 9:44 AM EDT) Thyroglob Ab <20.0 0.0 - 40.0 IU/mL [facility] Blood specimen (specimen) 07/04/2018 9:44 AM EDT 07/04/2018 2:05 PM EDT Narrative Resulting Agency Comment Spec In Lab Argelia Mccray [facility] SEND OUT OR DERABLES Performing Organization Address [facility] Co de Phone Number [facility] [place] [address] * T4, free (07/04/2018 9:44 AM EDT) Free T4 1.15 0.93 - 1.70 ng/dL [facility] Blood specimen (specimen) 07/04/2018 9:44 AM EDT 07/04/2018 10:04 AM EDT Narrative Resulting Agency Comment Spec In Lab Argelia Mccray [place] CHEMISTRY ORDER AMANDA Performing Organization Address [facility] Co de Phone Number [facility] [place] [address] * T4 Total (07/04/2018 9:44 AM EDT) T4 Total 5.7 5.1 - 10.8 mcg/dL [facility] Comment: Reference Range: [place] Blood: ??6.9-14.4 mcg/dL Females: ??7.2-14.2 mcg/dL Pediatric ranges: ??Interpret with caution-ranges have not been verified Blood specimen (specimen) 07/04/2018 9:44 AM EDT 07/04/2018 10:04 AM EDT Narrative Resulting Agency Comment Spec In Lab Argelia Mccray APRN CHEMISTRY ORDER AMANDA [facility] [place] [address] * T3, free (07/04/2018 9:44 AM EDT) Free T3 2.6 2.0 - 4.4 pg/mL [facility] Blood specimen (specimen) 07/04/2018 9:44 AM EDT 07/04/2018 10:04 AM EDT Narrative Resulting Agency Comment Spec In Lab Argelia Mccray APRN CHEMISTRY ORDER AMANDA Performing Organization Address City/[facility]/ZIP Co de Phone Number [facility] [place] [address] documented in this encounter Visit Diagnoses Diagnosis Bipolar II disorder Other bipolar disorders Depression, unspecified depression type Anxiety Anxiety state, unspecified documented in this encounter Care Teams Implementation Lead Relationship Specialty Start Date End Date Valencia Adhikari APRN [address] [place] [address] PCP - General 04/21/14 07/04/23 documented as of this encounter
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
--- OUTSIDE RECORDS SUMMARY | 2024-02-21 14:46 | XMS_ITS | Encounter Summary ---
Author Organization [facility] Address [facility] [place] [address] Care Team Providers Care Solid Waste Collection Worker Name Role Phone Valencia Adhikari APRN Primary Care Provider +1 [phone] Reason for Visit * Consultation (Routine) - Closed Specialty Diagnoses / Procedures Referred By Lamont riggins Referred To Contact Gastroenterology Diagnoses IRREGULAR BOWEL HABITS Valencia Adhikari APRN [address] [place] [address] [facility] [address] [address] Referral ID Status Reason Start Date Expiration Date V isits Requested Visits Authorized [id number] Closed Consult, Test & Treat Connection [facility] 09/11/2017 09/11/2018 1 1 Encounter Details Date Type Department Care Team (Late st Contact Info) Description 10/16/2017 10:00 AM EDT Office [place] [address] Elinor Fisher PA [facility] [place] [address] Abdominal bloating; Diarrhea, unspecified type; IgA deficiency [...] EGD and colonoscopy done (she thinks in [place]) around age 17 (I do not have [...] MONITORING, SETUP performed by JUAN ESPARZA at [facility] MAIN OR ??? PRO THYROIDECTOMY, NYDIA, [facility] NECK SURG 03/22/2011 THYROIDECTOMY, FOR MALIGNANCY, LIMITED NECK DISSECTION performed by JUAN ESPARZA at [facility] MAIN OR ??? TONSILLECTOMY 2010 [...] Fisher PA-C Section of Gastroenterology [place] [address] documented in this encounter Plan of Treatment Upcoming Encounters Date Type Department Care Team (Late st Contact Info) Description 03/03/2024 3:00 PM [place] [address] Linda Diaz MD [facility] MAT[place]NAL [place] [address] 03/03/2024 4:00 PM EST Routine Obstetrics and Gynecology at [place] [phone] Linda Diaz MD [facility] [place] [address] 03/03/2024 4:30 PM EST Scheduled View Only Obstetrics and Gynecology at [address] 03/12/2024 10:45 AM EST Office [place] [address] James Barth DO [facility] [place] [address] 05/23/2024 Hospital [place] [address] Maite Malloy MD [facility] OBSTETRICS [place] [address] documented as of this encounter Visit Diagnoses Diagnosis Abdominal bloating Flatulence, eructation, and gas pain Diarrhea, unspecified type IgA deficiency Selective IgA immunodeficiency documented in this encounter Care Teams Solid Waste Collection Worker Relationship Specialty Start Date End Date Valencia Adhikari APRN [address] [place] [address] PCP - General 04/21/14 07/04/23 documented as of this encounter
--- OUTSIDE RECORDS SUMMARY | 2024-02-21 14:46 | XMS_ITS | Encounter Summary ---
[place] [address] Care Team Providers Care Scratch Finisher Name Role Phone Valencia Adhikari APRN Primary Care Provider [phone] [phone] Reason for Visit * Reason Onset Date Comments Prior Authorization 12/31/2018 Celecoxib 20 0 mg Prior Authorization 01/02/2019 Request for information from [facility] Encounter Details Date Type Department Care Team (Late st Contact Info) Description 12/31/2018 Telephone [place] [address] Geovanna Paredes RN Prior Authorization (Celecoxib 200 mg ); Prior Authorization (Request for information from [facility]) Social History Tobacco Use Types Packs/Day [...] Request received by fax from [facility] Request for information - documentation to show previous - continuous use of Celebrex Documentation faxed to [facility] # [phone] Awaiting response. * Telephone Encounter - Geovanna Paredes RN - 12/31/2018 4:49 PM EDT Prior Auth Request received from [facility] [address] [place] [address] Celecoxib 200 mg cap - Take 1 capsule by mouth daily. Disp 30 Refill 1 Insurer: MARIAM ID: [id number] Provider: Alicia Oviedo APRN Diagnosis: Scapular Dyskinesis - G25.89 Left Shoulder Pain - M25.512 Patient has been effectively using this medication continuously since 11/16/2017. Previously tried: Voltaren Gel - 2017 - Not effective enough. Patient has Physical Therapy & Steroid Injections without relief. [employer] Forms completed, signed and faxed to Dept of [facility] Access at . Awaiting Response. documented in this encounter Plan of Treatment Upcoming Encounters Date Type Department Care Team (Late st Contact Info) Description 03/03/2024 3:00 PM EST [place] [address] Linda Diaz MD [facility] [place] [address] 03/03/2024 4:00 PM EST Routine Obstetrics [place] [address] Linda Diaz MD [facility] [place] [address] 03/03/2024 4:30 PM EST Scheduled View Only Obstetrics [place] [address] 03/12/2024 10:45 AM EST Office [place] [address] James Barth DO [facility] [place] [address] 05/23/2024 Hospital [place] [address] Maite Malloy MD [facility] [place] [address] documented as of this encounter Visit Diagnoses Not on filedocumented in this encounter Care Teams Scratch Finisher Relationship Specialty Start Date End Date Valencia Adhikari APRN [address] [place] [address] PCP - General 04/21/14 07/04/23 documented as of this encounter
--- OUTSIDE RECORDS SUMMARY | 2024-02-21 14:46 | XMS_ITS | Encounter Summary ---
Author Organization [facility] [place] [address] Care Team Providers Care Steak Tenderizer Machine Name Role Phone Valencia Adhikari APRN Primary Care Provider +1 [phone] Reason for Visit * Reason Onset Date Comments Medication Refill 10/13/2019 Encounter Details Date Type Department Care Team (Late st Contact Info) Description 10/13/2019 Refill Psychiatry [place] [address] Argelia Mccray APRN [facility] [place] [address] Depression, unspecified depression type Social History Tobacco [...] 03/03/2024 3:00 PM EST [place] [address] Linda Diaz MD [facility] DR MATERNAL AND MEDICINE [place], [place] [address] 03/03/2024 4:00 PM EST Routine Obstetrics and Gynecology at [place] [phone] Linda Diaz MD [facility] DR MATERNAL [place] [address] 03/03/2024 4:30 PM EST Scheduled View Only Obstetrics and Gynecology at [place] [phone] 03/12/2024 10:45 AM EST Office Visit Endocrinology at [address] James Barth DO [facility] [place] [address] 05/23/2024 Hospital Encounter Birthing [place] [phone] Maite Malloy MD [facility] DR OBSTETRICS [place] [address] documented as of this encounter Visit Diagnoses Diagnosis Depression, unspecified depression type documented in this encounter Care Teams Steak Tenderizer Machine Relationship Specialty Start Date End Date Valencia Adhikari APRN [address] [place] [address] PCP - General 04/21/14 07/04/23 documented as of this encounter
--- OUTSIDE RECORDS SUMMARY | 2024-02-21 14:46 | XMS_ITS | Encounter Summary ---
Author Organization [facility] [place] [address] Care Team Providers Care School Of Nursing Director Name Role Phone Valencia Adhikari APRN Primary Care Provider +1 [phone] Reason for Visit * Reason Comments Follow-up Workers comp needs u pdate Encounter Details Date Type Department Care Team (Late st Contact Info) Description 10/15/2017 1:30 PM EDT Office [place] [address] Alicia Oviedo AUTO DESIGN CHECKER [facility] [place] [address] Chronic left shoulder pain; Scapular dyskinesis Social [...] encounter Progress Notes * Preet Alicia A, AUTO DESIGN CHECKER - 10/15/2017 1:30 PM EDT Chief complaint: [...] 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 [facility] forms completed. Pt agrees, questions solicited/answered, [...] 03/03/2024 3:00 PM EST Appointment Radiology at [place] [phone] Linda Diaz MD [facility] [place] [address] 03/03/2024 4:00 PM EST Routine Obstetrics [place] [address] Linda Diaz MD [facility] [place] [address] 03/03/2024 4:30 PM EST Scheduled View Only Obstetrics [place] [address] 03/12/2024 10:45 AM EST Office Visit Endocrinology at [place] [phone] James Barth DO [facility] [place] [address] 05/23/2024 Hospital En[place] [address] Maite Malloy MD [facility] [place] [address] documented as of this encounter Visit Diagnoses Diagnosis Chronic left shoulder pain Pain in joint, shoulder region Scapular dyskinesis Lack of coordination documented in this encounter Care Teams School Of Nursing Director Relationship Specialty Start Date End Date Valencia Adhikari APRN [address] [place] [address] PCP - General 04/21/14 07/04/23 documented as of this encounter
--- OUTSIDE RECORDS SUMMARY | 2024-02-21 14:46 | XMS_ITS | Encounter Summary ---
Author Organization [facility] [place] [address] Care Team Providers Care Aircraft Parts Assembler Name Role Phone Valencia Adhikari APRN Primary Care Provider +1 [phone] Encounter Details Date Type Department Care Team (Late st Contact Info) Description 11/14/2017 Telephone Psychiatry and [place] [address] Argelia Mccray APRN [facility] [address] [place] [address] Social History Tobacco Use Types Packs/Day Years [...] 03/03/2024 3:00 PM EST Appointment Radiology at [address]1000 Linda Diaz MD [facility] [place] [address] 03/03/2024 4:00 PM EST Routine Obstetrics and Gynecology at [address]1000 Linda Diaz MD [facility] [place] [address] 03/03/2024 4:30 PM EST Scheduled View Only Obstetrics and Gynecology at [address] 03/12/2024 10:45 AM EST Office Visit Endocrinology at [place] [address] James Barth DO [facility] [place] [address] 05/23/2024 [facility] [phone] Maite Malloy MD [facility] [address] OBSTETRICS [place] [address] documented as of this encounter Visit Diagnoses Not on filedocumented in this encounter Care Teams Aircraft Parts Assembler Relationship Specialty Start Date End Date Valencia Adhikari APRN [address] [place] [address] PCP - General 04/21/14 07/04/23 documented as of this encounter
--- OUTSIDE RECORDS SUMMARY | 2024-02-21 14:46 | XMS_ITS | Encounter Summary ---
Author Organization [facility] [place] [address] Care Team Providers Care Information Technology Associate Name Role Phone Valencia Adhikari APRN Primary Care Provider +1 -[phone] Reason for Visit * Reason Onset Date Comments Medication Refill 04/27/2019 Encounter Details Date Type Department Care Team (Late st Contact Info) Description 04/27/2019 Refill Psychiatry [place] [address] Argelia Mccray APRN [facility] [place] [address] Anxiety Social History Tobacco Use Types Packs/Day [...] 03/03/2024 3:00 PM [place] [address] Linda Diaz MD [facility] MATERNAL [place] [address] 03/03/2024 4:00 PM EST Routine Obstetrics and Gynecology at [place] [phone] Linda Diaz MD [facility] [place] [address] 03/03/2024 4:30 PM EST Scheduled View Only Obstetrics and Gynecology at [place] [phone] 03/12/2024 10:45 AM EST Office Visit Endocrinology at [address]1000 James Barth DO [facility] DR [place] [address] 05/23/2024 Hospital [place] [phone] Maite Malloy MD [facility] DR OBSTETRICS [place] [address] documented as of this encounter Visit Diagnoses Diagnosis Anxiety Anxiety state, unspecified documented in this encounter Care Teams Information Technology Associate Relationship Specialty Start Date End Date Valencia Adhikari APRN [address] [place] [address] PCP - General 04/21/14 07/04/23 documented as of this encounter
--- OUTSIDE RECORDS SUMMARY | 2024-02-21 14:46 | XMS_ITS | Encounter Summary ---
Author Organization [facility] [place] [address] Care Team Providers Care Maintenance Scheduler Name Role Phone Valencia Adhikari APRN Primary Care Provider +1 [phone] Encounter Details Date Type Department Care Team (Late st Contact Info) Description 08/22/2018 8:00 AM EDT Office Visit Psychiatry and [place] [address] Argelia Mccray PARKING CONTROL OFFICER [facility] [place] [address] Depression, unspecified depression type; Anxiety Social History [...] this encounter Progress Notes * Argelia Mccray, PARKING CONTROL OFFICER - 08/22/2018 8:00 AM EDT ESTABLISHED ADULT [...] abnormalities Social History: 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 Language: fluent in romanian ?? Mood: depressed ?? Affect: mood-congruent ?? [...] - 10.8 mcg/dL Final Comment: Reference Range: [place] Cord Blood: 6.9-14.4 mcg/dL Females: 7.2-14.2 mcg/dL Pediatric ranges: Interpret with caution-ranges have not been verified Free T4 Date Value Ref Range Status 07/04/2018 1.15 0.93 - 1.70 ng/dL Final Lipids and HgbA1C: No results found for: CHLPL, HDL, CHOLHDL, LDLCHOL, LDLDIRECT, TRIG No results found for: HA1C Vit Lvls: No results found for: AAILUHCH99, SFOLATE Tox: No results found for: ETHANOL, ACTMNPHEN, SALICYLATE, LEAD No results found for: UDAUSCREEN Rx Lvls: Lamotrigine Lvl Date Value Ref Range Status 07/04/2018 3.2 2.5 - 15.0 mcg/mL Final Comment: ADDITIONAL INFORMATION This test was developed and its performance characteristics determined by [facility] in a manner consistent with CLIA requirements. This test has not been cleared or approved by the U.S. Food and Drug Administration. Test Performed by: [facility] [address] [place] [address] Formulation and Assessment: Overall Formulation: Andree Hummel [...] 03/03/2024 3:00 PM EST Appointment [place] [address] Linda Diaz MD [facility] [place] [address] 03/03/2024 4:00 PM EST Routine Obstetrics and Gynecology at [place] [phone] Linda Diaz MD [facility] [place]NAL [place] [address] 03/03/2024 4:30 PM EST Scheduled View Only Obstetrics and Gynecology at [place] [phone] 03/12/2024 10:45 AM EST Office Visit Endocrinology at [address]1000 James Barth DO [facility] [place] [address] 05/23/2024 Hospital Encounter Birthing [place] [phone] Maite Malloy MD [facility] DR OBSTETRICS [place] [address] documented as of this encounter Visit Diagnoses Diagnosis Depression, unspecified depression type Anxiety Anxiety state, unspecified documented in this encounter Care Teams Maintenance Scheduler Relationship Specialty Start Date End Date Valencia Adhikari APRN [address] [place] [address] PCP - General 04/21/14 07/04/23 documented as of this encounter
--- OUTSIDE RECORDS SUMMARY | 2024-02-21 14:46 | XMS_ITS | Encounter Summary ---
Author Organization [facility] Address [facility] [place] [address] Care Team Providers Care Jewel Bearing Maker Name Role Phone Valencia Adhikari APRN Primary Care Provider [phone] [phone] Reason for Visit * Reason Comments Bipolar Disorder Encounter Details Date Type Department Care Team (Late st Contact Info) Description 11/08/2017 8:00 AM EDT Office Visit Psychiatry [place] [address] Argelia Mccray ORCHESTRA LEADER [facility] [place] [address] Depression, unspecified depression type; Anxiety Social History [...] in this encounter Progress Notes * MichaeldelilahArgelia, ORCHESTRA LEADER - 11/08/2017 8:00 AM EDT ESTABLISHED ADULT [...] on Sunday and has been hospitalized at [facility]. Andree states she and her father do [...] and normal rhythm ?? Language: fluent in bhutanese ?? Mood: Anxious ?? Affect: mood-congruent ?? [...] abuse) or ifrecords are subpoenaed by a laser set up operator. We also discussed that notes can be read by other clinicians andstaff involved in the patient's care. Argelia Mccray APRN 11/08/2017 documented in this encounter Plan of Treatment Upcoming Encounters Date Type Department Care Team (Late st Contact Info) Description 03/03/2024 3:00 PM EST [place] [address] Linda Diaz MD [facility] [place] [address] 03/03/2024 4:00 PM EST Routine Obstetrics [place] [address] Linda Diaz MD [facility] [place] [address] 03/03/2024 4:30 PM EST Scheduled View Only Obstetrics [place] [address] 03/12/2024 10:45 AM EST Office [place] [address] James Barth DO [facility] [place] [address] 05/23/2024 Hospital [place] [address] Maite Malloy MD [facility] DR OBST[place] [address] documented as of this encounter Visit Diagnoses Diagnosis Depression, unspecified depression type Anxiety Anxiety state, unspecified documented in this encounter Care Teams Jewel Bearing Maker Relationship Specialty Start Date End Date Valencia Adhikari APRN [address] [place] [address] PCP - General 04/21/14 07/04/23 documented as of this encounter
--- OUTSIDE RECORDS SUMMARY | 2024-02-21 14:46 | XMS_ITS | Encounter Summary ---
Author Organization [facility] Address [facility] [place] [address] Care Team Providers Care Bilingual Branch Manager Name Role Phone Valencia Adhikari APRN Primary Care Provider [phone] [phone] Encounter Details Date Type Department Care Team (Late st Contact Info) Description 04/19/2020 Telephone Psychiatry and [place] [address] Lisa Dickens, PhD [facility] [place] [address] Social History Tobacco Use Types Packs/Day Years [...] me) Plan: Patient can contact schedulers at [phone] to reschedule if she is still interested in anevaluation or psychotherapy through the Psychiatry Department. documented in this encounter Plan of Treatment Upcoming Encounters Date Type Department Care Team (Late st Contact Info) Description 03/03/2024 3:00 PM EST Appointment Radiology at [place] [phone] Linda Diaz MD [facility] [place] [address] 03/03/2024 4:00 PM EST Routine Obstetrics and Gynecology at [place] [phone] Linda Diaz MD [facility] [place] [address] 03/03/2024 4:30 PM EST Scheduled View Only Obstetrics and Gynecology at [address]1000 03/12/2024 10:45 AM EST Office [place] [address] James Barth DO [facility] [place] [address] 05/23/2024 Hospital Encounter Birthing [place] [phone] Maite Malloy MD [facility] DR OBSTETRICS [place] [address] documented as of this encounter Visit Diagnoses Diagnosis Unspecified mood (affective) disorder documented in this encounter Care Teams Bilingual Branch Manager Relationship Specialty Start Date End Date Valencia Adhikari APRN [address] [place] [address] PCP - General 04/21/14 07/04/23 documented as of this encounter
--- OUTSIDE RECORDS SUMMARY | 2024-02-21 14:46 | XMS_ITS | Encounter Summary ---
Author Organization [facility] [place] [address] Care Team Providers Care Office Machines Wirer Name Role Phone Valencia Adhikari APRN Primary Care Provider [phone] [phone] Encounter Details Date Type Department Care Team (Late st Contact Info) Description 12/13/2017 8:30 AM EDT Office Visit Psychiatry and Behavior[place] [address] Argelia Mccray HIGH SCHOOL SOCIAL STUDIES TEACHER [facility] [place] [address] Depression, unspecified depression type; Anxiety; Bipolar affective [...] and normal rhythm ?? Language: fluent in israeli ?? Mood: Anxious ?? Affect: mood-congruent and [...] disorder who continues to be seen at [facility] for medication management. Andree continues to [...] abuse) or ifrecords are subpoenaed by a storage center manager. We also discussed that notes can be read by other clinicians andstaff involved in the patient's care. Argelia Mccray APRN 12/13/2017 documented in this encounter Plan of Treatment Upcoming Encounters Date Type Department Care Team (Late st Contact Info) Description 03/03/2024 3:00 PM EST Appointment [place] [phone] Linda Diaz MD [facility] [place] [address] 03/03/2024 4:00 PM EST Routine Obstetrics and Gynecology at [address]1000 Linda Diaz MD [facility] [place] [address] 03/03/2024 4:30 PM EST Scheduled View Only Obstetrics and Gynecology at [address]1000 03/12/2024 10:45 AM EST Office Visit Endocrinology at [address]1000 James Barth DO [facility] [place] [address] 05/23/2024 [place] [address] Maite Malloy MD [facility] DR OBSTETRICS [place] [address] documented as of this encounter Visit Diagnoses Diagnosis Depression, unspecified depression type Anxiety Anxiety state, unspecified Bipolar affective disorder, remission status unspecified documented in this encounter Care Teams Office Machines Wirer Relationship Specialty Start Date End Date Valencia Adhikari APRN [address] [place] [address] PCP - General 04/21/14 07/04/23 documented as of this encounter
--- OUTSIDE RECORDS SUMMARY | 2024-02-21 14:46 | XMS_ITS | Encounter Summary ---
Author Organization [facility] [place] [address] Care Team Providers Care Framing Carpenter Name Role Phone Valencia Adhikari APRN Primary Care Provider +1 -[phone] Reason for Visit * Reason Onset Date Comments Medication Refill 12/24/2018 Encounter Details Date Type Department Care Team (Late st Contact Info) Description 12/24/2018 [place] [address] Alicia Oviedo APRN [facility] [place] [address] Scapular dyskinesis; Left shoulder pain, unspecified chronicity [...] 03/03/2024 3:00 PM [place] [address] Linda Diaz MD [facility] [place] [address] 03/03/2024 4:00 PM EST Routine Obstetrics [place] [address] Linda Diaz MD [facility] [place] [address] 03/03/2024 4:30 PM EST Scheduled View Only Obstetrics and Gynecology at [place] [phone] 03/12/2024 10:45 AM EST Office Visit Endocrinology at [address] James Barth DO [facility] [place] [address] 05/23/2024 Hospital Encounter Birthing [place] [phone] Maite Malloy MD [facility] DR OBSTETRICS [place] [address] documented as of this encounter Visit Diagnoses Diagnosis Scapular dyskinesis Lack of coordination Left shoulder pain, unspecified chronicity documented in this encounter Care Teams Framing Carpenter Relationship Specialty Start Date End Date Valencia Adhikari APRN [address] [place] [address] PCP - General 04/21/14 07/04/23 documented as of this encounter
--- OUTSIDE RECORDS SUMMARY | 2024-02-21 14:46 | XMS_ITS | Encounter Summary ---
Author Organization [facility] [place] [address] Care Team Providers Care Senior Staff Consultant Name Role Phone Valencia Adhikari APRN Primary Care Provider +1 [phone] Encounter Details Date Type Department Care Team (Late st Contact Info) Description 10/03/2018 Telephone Psychiatry and [place] [address] Argelia Mccray APRN [facility] [place] [address] Social History Tobacco Use Types Packs/Day Years [...] 03/03/2024 3:00 PM EST Appointment Radiology at [place] [address] Linda Diaz MD [facility] [place] [address] 03/03/2024 4:00 PM EST Routine Obstetrics and Gynecology at [address]1000 Linda Diaz MD [facility] [place] [address] 03/03/2024 4:30 PM EST Scheduled View Only Obstetrics and Gynecology at [place] [address] 03/12/2024 10:45 AM EST Office Visit Endocrinology at [place] [address] James Barth DO [facility] [place] [address] 05/23/2024 Hospital [place] [address] Maite Malloy MD [facility] DR OBSTETRICS [place] [address] documented as of this encounter Visit Diagnoses Not on filedocumented in this encounter Care Teams Senior Staff Consultant Relationship Specialty Start Date End Date Valencia Adhikari APRN [address] [place] [address] PCP - General 04/21/14 07/04/23 documented as of this encounter
--- OUTSIDE RECORDS SUMMARY | 2024-02-21 14:46 | XMS_ITS | Encounter Summary ---
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 Language: fluent in thai ?? Mood: anxious ?? Affect: mood-congruent ?? [...] HA1C Vit Lvls: No results found for: UUOHBEIL81, SFOLATE Tox: No results found for: ETHANOL, ACTMNPHEN, SALICYLATE, LEAD No results found for: UDAUSCREEN Rx Lvls: Lamotrigine Lvl Date Value Ref Range Status 07/04/2018 3.2 2.5 - 15.0 mcg/mL Final Comment: ADDITIONAL INFORMATION This test was developed and its performance characteristics determined by [facility] in a manner consistent with CLIA requirements. This test has not been cleared or approved by the U.S. Food and Drug Administration. Test Performed by: [facility] [place] [address] Formulation and Assessment: Overall Formulation: Andree UnderwoodWilliams [...] been searching for a therapist and this conventional mortgage underwriter willsend her additional resources. We [...] 03/03/2024 3:00 PM EST Appointment Radiology at [place] [phone] Linda Diaz MD [facility] [place] [address] 03/03/2024 4:00 PM EST Routine Obstetrics [place] [address] Linda Diaz MD [facility] [place] [address] 03/03/2024 4:30 PM EST Scheduled View Only Obstetrics and Gynecology at [place] [phone] 03/12/2024 10:45 AM EST Office Visit Endocrinology at [place] [phone] James Barth DO [facility] [place] [address] 05/23/2024 Hospital Encounter Birthing [facility] [place] [address] Maite Malloy MD [facility] OBSTETR[place] [address] documented as of this encounter Visit Diagnoses Diagnosis Depression, unspecified depression type Anxiety Anxiety state, unspecified documented in this encounter Care Teams Jewelry Bearing Maker Relationship Specialty Start Date End Date Valencia Adhikari APRN [address] [place] [address] PCP - General 04/21/14 07/04/23 documented as of this encounter
--- OUTSIDE RECORDS SUMMARY | 2024-02-21 14:46 | XMS_ITS | Encounter Summary ---
Author Organization [facility] [place] [address] Care Team Providers Care Perfusionist Name Role Phone OnofreMarilynValenciaadan Barton APRN Primary Care Provider +1 [phone] Reason for Visit * Reason Onset Date Comments Medication Refill 03/16/2020 Encounter Details Date Type Department Care Team (Late st Contact Info) Description 03/16/2020 Refill Psychiatry [place] [address] Osmar South, TRE Anxiety; Depression, unspecified depression type Social History [...] 3:00 PM [place] [address] Linda Diaz MD [facility] [place] [address] 03/03/2024 4:00 PM EST Routine Obstetrics [place] [address] Linda Diaz MD [facility] [place] [address] 03/03/2024 4:30 PM EST Scheduled View Only Obstetrics and Gynecology at [place] [address] 03/12/2024 10:45 AM EST Office Visit Endocrinology at [place] [address] James Barth DO [facility] [place] [address] 05/23/2024 Hospital [place] [address] Maite Malloy MD [facility] DR [place] [address] documented as of this encounter Visit Diagnoses Diagnosis Anxiety Anxiety state, unspecified Depression, unspecified depression type documented in this encounter Care Teams Perfusionist Relationship Specialty Start Date End Date Valencia Adhikari APRN [address] [place] [address] PCP - General 04/21/14 07/04/23 documented as of this encounter
--- OUTSIDE RECORDS SUMMARY | 2024-02-21 14:46 | XMS_ITS | Encounter Summary ---
Author Organization [facility] [place] [address] Care Team Providers Care Commercial Artist Lettering Name Role Phone OnofreMarilynValenciaadan Barton APRN Primary Care Provider +1 [phone] Reason for Visit * Reason Onset Date Comments Medication Refill 01/31/2018 Encounter Details Date Type Department Care Team (Late st Contact Info) Description 01/31/2018 Refill Psychiatry [place] [address] Osmar South RN Depression, unspecified [...] 03/03/2024 3:00 PM [place] [address] Linda Diaz MD [facility] MATERNAL [place] [address] 03/03/2024 4:00 PM EST Routine Obstetrics [place] [address] Linda Diaz MD [facility] DR MATERNAL [place] [address] 03/03/2024 4:30 PM EST Scheduled View Only Obstetrics and Gynecology at [place] [address] 03/12/2024 10:45 AM EST Office Visit Endocrinology at [place] [address] James Barth DO [facility] DR [place] [address] 05/23/2024 Hospital [place] [address] Maite Malloy MD [facility] DR OBSTETRICS [place] [address] documented as of this encounter Visit Diagnoses Diagnosis Depression, unspecified depression type Anxiety Anxiety state, unspecified documented in this encounter Care Teams Commercial Artist Lettering Relationship Specialty Start Date End Date Valencia Adhikari APRN [address] [place] [address] PCP - General 04/21/14 07/04/23 documented as of this encounter
--- OUTSIDE RECORDS SUMMARY | 2024-02-21 14:46 | XMS_ITS | Encounter Summary ---
[place] [address] Care Team Providers Care Corporate Executive Name Role Phone Valencia Adhikari APRN Primary Care Provider +1 -[phone] Encounter Details Date Type Department Care Team (Late st Contact Info) Description 11/21/2017 Notes [place] [phone] Ambika Grande MSW Social History Tobacco Use [...] 03/03/2024 3:00 PM EST Appointment Radiology at [place] [address] Linda Diaz MD [facility] [address] [place] [address] 03/03/2024 4:00 PM EST Routine Obstetrics and Gynecology at [place] [address] Linda Diaz MD [facility] [address] [place] [address] 03/03/2024 4:30 PM EST Scheduled View Only Obstetrics and Gynecology at [place] [address] 03/12/2024 10:45 AM EST Office Visit Endocrinology at [place] [address] James Barth DO [facility] [place] [address] 05/23/2024 Hospital [place] [address] Maite Malloy MD [facility] DR OBSTETRICS [place] [address] documented as of this encounter Visit Diagnoses Not on filedocumented in this encounter Care Teams Corporate Executive Relationship Specialty Start Date End Date Valencia Adhikari APRN [address] [place] [address] PCP - General 04/21/14 07/04/23 documented as of this encounter
--- OUTSIDE RECORDS SUMMARY | 2024-02-21 14:46 | XMS_ITS | Encounter Summary ---
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 Language: fluent in turkish ?? Mood: Anxious ?? Affect: mood-congruent and [...] reviewed the resource Psychology Today and this web content writer will plan to send the client some options. MEDICAL DECISION MAKING WORKING DIAGNOSIS Anxiety disorder unspecified Depressive disorder/Mood disorder DDx: Bipolar disorder CURRENT ASSESSMENT: 27 year old with hypothyroidism, intractable chronic migraine, and mood disorder who continues to be seen at [facility] for medication management. Today, Andree's [...] abuse) or ifrecords are subpoenaed by a pipelaying fitter. We also discussed that notes can be read by other clinicians andstaff involved in the patient's care. Argelia Mccray APRN 03/21/2018 documented in this encounter Plan of Treatment Upcoming Encounters Date Type Department Care Team (Late st Contact Info) Description 03/03/2024 3:00 PM EST Appointment Radiology at [place] [phone] Linda Diaz MD [facility] [place] [address] 03/03/2024 4:00 PM EST Routine Obstetrics and Gynecology at [place] [phone] Linda Diaz MD [facility] [place] [address] 03/03/2024 4:30 PM EST Scheduled View Only Obstetrics [place] [address] 03/12/2024 10:45 AM EST Office Visit Endocrinology at [place] [phone] James Barth DO [facility] [place] [address] 05/23/2024 [place] [address] Maite Malloy MD [facility] [place] [address] documented as of this encounter Visit Diagnoses Diagnosis Anxiety Anxiety state, unspecified documented in this encounter Care Teams Clinical Scientist Relationship Specialty Start Date End Date Valencia Adhikari APRN [address] [place] [address] PCP - General 04/21/14 07/04/23 documented as of this encounter
--- OUTSIDE RECORDS SUMMARY | 2024-02-21 14:46 | XMS_ITS | Encounter Summary ---
Author Organization [facility] Address [facility] [place] [address] Care Team Providers Care Exhibits Coordinator Name Role Phone Valencia Adhikari APRN Primary Care Provider +1 [phone] Reason for Visit * Reason Onset Date Comments Medication Refill 10/26/2018 Encounter Details Date Type Department Care Team (Late st Contact Info) Description 10/26/2018 Refill Psychiatry [place] [address] Argelia Mccray APRN [facility] [place] [address] Depression, unspecified depression type; Anxiety Social History [...] 03/03/2024 3:00 PM EST [place] [address] Linda Diaz MD [facility] [address] MATERNAL AND MEDICINE [place], [place] [phone] 03/03/2024 4:00 PM EST Routine Obstetrics [place] [address] Linda Diaz MD [facility] [place] [address] 03/03/2024 4:30 PM EST Scheduled View Only Obstetric[place] [address] 03/12/2024 10:45 AM EST Office Visit Endocrinology at [address]1000 James Barth DO [facility] [place] [address] 05/23/2024 Hospital Encounter Birthing [place] [phone] Maite Malloy MD [facility] DR [place]STET[place] [address] documented as of this encounter Visit Diagnoses Diagnosis Depression, unspecified depression type Anxiety Anxiety state, unspecified documented in this encounter Care Teams Exhibits Coordinator Relationship Specialty Start Date End Date Valencia Adhikari APRN [address] [place] [address] PCP - General 04/21/14 07/04/23 documented as of this encounter
--- OUTSIDE RECORDS SUMMARY | 2024-02-21 14:46 | XMS_ITS | Encounter Summary ---
Author Organization [facility] Address [facility] [place] [address] Care Team Providers Care Disbursing Officer Name Role Phone OnofreMarilynValenciaadan Barton APRN Primary Care Provider [phone] [phone] Reason for Visit * Reason Onset Date Comments Medication Refill 03/22/2020 Encounter Details Date Type Department Care Team (Late st Contact Info) Description 03/22/2020 Refill Psychiatry [place] [address] Osmar South RN Depression, unspecified [...] 03/03/2024 3:00 PM EST Appoint[place] [address] Linda Diaz MD [facility] [place] [address] 03/03/2024 4:00 PM EST Routine Obstetrics [place] [address] Linda Diaz MD [facility] [place] [address] 03/03/2024 4:30 PM EST Scheduled View Only Obstetrics and Gynecology at [place] [address] 03/12/2024 10:45 AM EST Office Visit Endocrinology at [place] [address] James Barth DO [facility] [place] [address] 05/23/2024 [place] [address] Maite Malloy MD [facility] DR OBSTET[place] [address] documented as of this encounter Visit Diagnoses Diagnosis Depression, unspecified depression type Anxiety Anxiety state, unspecified documented in this encounter Care Teams Disbursing Officer Relationship Specialty Start Date End Date Valencia Adhikari APRN [address] [place] [address] PCP - General 04/21/14 07/04/23 documented as of this encounter
--- OUTSIDE RECORDS SUMMARY | 2024-02-21 14:46 | XMS_ITS | Encounter Summary ---
Author Organization [facility] Address [facility] [place] [address] Care Team Providers Care J2Ee Architect Name Role Phone Valencia Adhikari APRN Primary Care Provider +1 [phone] Reason for Visit * Reason Onset Date Comments Medication Refill 03/19/2020 Encounter Details Date Type Department Care Team (Late st Contact Info) Description 03/19/2020 Refill Psychiatry [place] [address] Crispin Fuller MD [facility] [address] Depression, unspecified depression type; Anxiety Social History [...] 3:00 PM EST Appointment [place] [address] Linda Diaz MD [facility] [place] [address] 03/03/2024 4:00 PM EST Routine Obstetrics and Gynecology at [place] [phone] Linda Diaz MD [facility] [place] [address] 03/03/2024 4:30 PM EST Scheduled View Only Obstetrics and Gynecology at [place] [phone] 03/12/2024 10:45 AM EST Office Visit Endocrinology at [address]1000 James Barth DO [facility] [place] [address] 05/23/2024 Hospital Encounter Birthing [place] [phone] Maite Malloy MD [facility] DR OBSTET[place] [address] documented as of this encounter Visit Diagnoses Diagnosis Depression, unspecified depression type Anxiety Anxiety state, unspecified documented in this encounter Care Teams J2Ee Architect Relationship Specialty Start Date End Date Valencia Adhikari APRN [address] [place] [address] PCP - General 04/21/14 07/04/23 documented as of this encounter
--- OUTSIDE RECORDS SUMMARY | 2024-02-21 14:46 | XMS_ITS | Encounter Summary ---
Author Organization [facility] [place] [address] Care Team Providers Care Tape Editor Name Role Phone Valencia Adhikari APRN Primary Care Provider +1 [phone] Encounter Details Date Type Department Care Team (Late st Contact Info) Description 10/04/2018 Telephone Psychiatry [place] [phone] Argelia Mccray APRN [facility] [place] [address] Social History Tobacco Use Types Packs/Day Years [...] 03/03/2024 3:00 PM EST Appointment Radiology at [address]1000 Linda Diaz MD [facility] [place] [address] 03/03/2024 4:00 PM EST Routine Obstetrics and Gynecology at [address]1000 Linda Diaz MD [facility] [place] [address] 03/03/2024 4:30 PM EST Scheduled View Only Obstetrics and Gynecology at [address]1000 03/12/2024 10:45 AM EST Office Visit Endocrinology at [address]1000 James Barth DO [facility] [place] [address] 05/23/2024 Hospital [place] [address] Maite Malloy MD [facility] DR OBSTETRICS [place] [address] documented as of this encounter Visit Diagnoses Not on filedocumented in this encounter Care Teams Tape Editor Relationship Specialty Start Date End Date Valencia Adhikari APRN [address] [place] [address] PCP - General 04/21/14 07/04/23 documented as of this encounter
--- OUTSIDE RECORDS SUMMARY | 2024-02-21 14:46 | XMS_ITS | Encounter Summary ---
Author Organization Formerly [facility] Address [facility] [place] [address] Care Team Providers Care Snuff Blender Name Role Phone OnofreMarilynValenciaadan Barton APRN Primary Care Provider +1 [phone] Encounter Details Date Type Department Care Team (Late st Contact Info) Description 07/21/2019 Orders Only Psychiatry [place] [address] Argelia Mccray APRN [facility] [place] [address] Depression, unspecified depression type; Anxiety Social History [...] 03/03/2024 3:00 PM [place] [address] Linda Diaz MD [facility] MATERNAL [place] [address] 03/03/2024 4:00 PM EST Routine Obstetrics and Gynecology at [place] [address] Linda Diaz MD [facility] [place] [address] 03/03/2024 4:30 PM EST Scheduled View Only Obstetrics and Gynecology at [address]1000 03/12/2024 10:45 AM EST Office Visit Endocrinology at [place] [address] James Barth DO [facility] [place] [address] 05/23/2024 Hospital Encounter Birthing [place] [phone] Maite Malloy MD [facility] [address] OBSTET[place] [address] documented as of this encounter Visit Diagnoses Diagnosis Depression, unspecified depression type Anxiety Anxiety state, unspecified documented in this encounter Care Teams Snuff Blender Relationship Specialty Start Date End Date Valencia Adhikari APRN [address] [place] [address] PCP - General 04/21/14 07/04/23 documented as of this encounter
--- OUTSIDE RECORDS SUMMARY | 2024-02-21 14:46 | XMS_ITS | Encounter Summary ---
Author Organization Formerly [facility] Address [facility] [place] [address] Care Team Providers Care Chicken Hanger Name Role Phone Richard Rasheed MD Primary Care Provider [phone] Reason for Visit * Reason Onset Date Comments Medication Refill 09/02/2018 Encounter Details Date Type Department Care Team (Late st Contact Info) Description 09/02/2018 Refill Psychiatry [place] [address] Argelia Mccray APRN [facility] [address] Anxiety Social History Tobacco Use Types Packs/Day [...] 03/03/2024 3:00 PM [place] [address] Linda Diaz MD [facility] MATERNAL AND MEDICINE [place], [place] [address] 03/03/2024 4:00 PM EST Routine Obstetrics and Gynecology at [place] [phone] Linda Diaz MD [facility] [place] [address] 03/03/2024 4:30 PM EST Scheduled View Only Obstetrics and Gynecology at [address]1000 03/12/2024 10:45 AM EST Office Visit Endocrinology at [address]1000 James Barth DO [facility] [place] [address] 05/23/2024 Hospital [place] [address] Maite Malloy MD [facility] DR OBSTET[place]ICS [place] [address] documented as of this encounter Visit Diagnoses Diagnosis Anxiety Anxiety state, unspecified documented in this encounter Care Teams Chicken Hanger Relationship Specialty Start Date End Date Richard Rasheed MD [address] [place] [address] PCP - General Family Medicine 07/05/23 documented as of this encounter
--- OUTSIDE RECORDS SUMMARY | 2024-02-21 14:46 | XMS_ITS | Encounter Summary ---
Author Organization [facility] [place] [address] Care Team Providers Care Data Warehousing Engineer Name Role Phone Onofre Valenciaadan Barton APRN Primary Care Provider +1 -[phone] Encounter Details Date Type Department Care Team (Late st Contact Info) Description 07/16/2019 Orders Only Psychiatry and [place] [phone] Argelia Mccray APRN [facility] [place] [address] Anxiety Social History Tobacco Use Types Packs/Day [...] 03/03/2024 3:00 PM EST Appointment [place] [address] Linda Diaz MD [facility] [place] [address] 03/03/2024 4:00 PM EST Routine Obstetrics and Gynecology at [address] Linda Diaz MD [facility] [place] [address] 03/03/2024 4:30 PM EST Scheduled View Only Obstetrics and Gynecology at [place] [address] 03/12/2024 10:45 AM EST Office Visit Endocrinology at [place] [address] James Barth DO [facility] [place] [address] 05/23/2024 Hospital [place] [address] Maite Malloy MD [facility] DR OBSTET[place] [address] documented as of this encounter Visit Diagnoses Diagnosis Anxiety Anxiety state, unspecified documented in this encounter Care Teams Data Warehousing Engineer Relationship Specialty Start Date End Date Valencia Adhikari APRN [address] [place] [address] PCP - General 04/21/14 07/04/23 documented as of this encounter
--- OUTSIDE RECORDS SUMMARY | 2024-02-21 14:46 | XMS_ITS | Encounter Summary ---
[place] [address] Care Team Providers Care Watch Leader Name Role Phone Valencia Adhikari APRN Primary Care Provider +1 -[phone] Encounter Details Date Type Department Care Team (Late st Contact Info) Description 02/05/2018 Telephone [place] [address] Negar Wilkes Social History Tobacco [...] come in. 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 documented in this encounter Plan of Treatment Upcoming Encounters Date Type Department Care Team (Late st Contact Info) Description 03/03/2024 3:00 PM [place] [address] Linda Diaz MD [facility] [place] [address] 03/03/2024 4:00 PM EST Routine Obstetrics and Gynecology at [address]1000 Linda Diaz MD [facility] [place] [address] 03/03/2024 4:30 PM EST Scheduled View Only Obstetrics and Gynecology at [address] 03/12/2024 10:45 AM EST Office Visit Endocrinology at [address] James Barth DO [facility] [place] [address] 05/23/2024 [place] [address] Maite Malloy MD [facility] DR OBSTET[place] [address] documented as of this encounter Visit Diagnoses Not on filedocumented in this encounter Care Teams Watch Leader Relationship Specialty Start Date End Date Valencia Adhikari APRN [address] [place] [address] PCP - General 04/21/14 07/04/23 documented as of this encounter
--- OUTSIDE RECORDS SUMMARY | 2024-02-21 14:46 | XMS_ITS | Encounter Summary ---
Author Organization [facility] Address [facility] [place] [address] Care Team Providers Care Sample Case Porter Name Role Phone Valencia Adhikari APRN Primary Care Provider +1 -[phone] Reason for Visit * Reason Onset Date Comments Medication Refill 12/24/2018 Encounter Details Date Type Department Care Team (Late st Contact Info) Description 12/24/2018 Refill Psychiatry [place] [phone] Argelia Mccray APRN [facility] [place] [address] Depression, unspecified depression type; Anxiety Social History [...] 03/03/2024 3:00 PM [place] [phone] Linda Diaz MD [facility] DR MATERNAL AND MEDICINE [place], [place] [address] 03/03/2024 4:00 PM EST Routine Obstetrics [place] [address] Linda Diaz MD [facility] [place] [address] 03/03/2024 4:30 PM EST Scheduled View Only Obstetrics [place] [address] 03/12/2024 10:45 AM EST Office Visit Endocrinology at [address]1000 James Barth DO [facility] [place] [address] 05/23/2024 Hospital Encounter Birthing [place] [phone] Maite Malloy MD [facility] DR OBSTETRICS [place] [address] documented as of this encounter Visit Diagnoses Diagnosis Depression, unspecified depression type Anxiety Anxiety state, unspecified documented in this encounter Care Teams Sample Case Porter Relationship Specialty Start Date End Date Valencia Adhikari APRN [address] [place] [address] PCP - General 04/21/14 07/04/23 documented as of this encounter
--- OUTSIDE RECORDS SUMMARY | 2024-02-21 14:46 | XMS_ITS | Encounter Summary ---
[place] [address] Care Team Providers Care Christmas Bell Ringer Name Role Phone Valencia Adhikari APRN Primary Care Provider +1 [phone] Encounter Details Date Type Department Care Team (Late st Contact Info) Description 11/16/2017 Telephone [place] [address] Lianne Rivera RN Social History [...] 03/03/2024 3:00 PM EST Appointment [place] [address] Linda Diaz MD [facility] MATERNAL [place] [address] 03/03/2024 4:00 PM EST Routine Obstetrics and Gynecology at [address]1000 Linda Diaz MD [facility] MATERNAL [place] [address] 03/03/2024 4:30 PM EST Scheduled View Only Obstetrics and Gynecology at [address] 03/12/2024 10:45 AM EST Office Visit Endocrinology at [address]1000 James Barth DO [facility] [place] [address] 05/23/2024 [place] [address] Maite Malloy MD [facility] DR OBSTETRICS [place] [address] documented as of this encounter Visit Diagnoses Not on filedocumented in this encounter Care Teams Christmas Bell Ringer Relationship Specialty Start Date End Date Valencia Adhikari APRN [address] [place] [address] PCP - General 04/21/14 07/04/23 documented as of this encounter
--- OUTSIDE RECORDS SUMMARY | 2024-02-21 14:46 | XMS_ITS | Encounter Summary ---
Author Organization [facility] [place] [address] Care Team Providers Care Power Sweeper Operator Name Role Phone Valencia Adhikari APRN Primary Care Provider +1 -[phone] Encounter Details Date Type Department Care Team (Late st Contact Info) Description 11/14/2018 9:00 AM EDT Office Visit Psychiatry and [place] [address] Argelia Mccray DIRECTOR OF STATE [facility] [address] [place] [address] Anxiety; Depression, unspecified depression type Social History [...] abnormalities Social History: 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 Language: fluent in uzbek ?? Mood: anxious ?? Affect: mood-congruent ?? [...] - 10.8 mcg/dL Final Comment: Reference Range: Jarreau Cord Blood: 6.9-14.4 mcg/dL Females: 7.2-14.2 mcg/dL Pediatric ranges: Interpret with caution-ranges have not been verified Free T4 Date Value Ref Range Status 07/04/2018 1.15 0.93 - 1.70 ng/dL Final Lipids and HgbA1C: No results found for: CHLPL, HDL, CHOLHDL, LDLCHOL, LDLDIRECT, TRIG No results found for: HA1C Vit Lvls: No results found for: CNUGEFOV20, SFOLATE Tox: No results found for: ETHANOL, ACTMNPHEN, SALICYLATE, LEAD No results found for: UDAUSCREEN Rx Lvls: Lamotrigine Lvl Date Value Ref Range Status 07/04/2018 3.2 2.5 - 15.0 mcg/mL Final Comment: ADDITIONAL INFORMATION This test was developed and its performance characteristics determined by [facility] in a manner consistent with CLIA requirements. This test has not been cleared or approved by the U.S. Food and Drug Administration. Test Performed by: [facility] [address] [place] [address] Formulation and Assessment: Overall Formulation: Andree Hummel [...] and how it is not meant for roasterman use. Brooklynn voices her understanding and states that she does not want to be on this medication fci. Since being on the medication she has [...] 03/03/2024 3:00 PM EST Appointment Radiology at [place] [phone] Linda Diaz MD [facility] [address] MATERNAL [place] [address] 03/03/2024 4:00 PM EST Routine Obstetrics and Gynecology at [place] [phone] Linda Diaz MD [facility] [address] MATERNAL [place] [address] 03/03/2024 4:30 PM EST Scheduled View Only Obstetrics and Gynecology at [place] [phone] 03/12/2024 10:45 AM EST Office Visit Endocrinology at [address]1000 James Barth DO [facility] [place] [address] 05/23/2024 Hospital [place] [address] Maite Malloy MD [facility] [address] OBSTETRICS [place] [address] documented as of this encounter Visit Diagnoses Diagnosis Anxiety Anxiety state, unspecified Depression, unspecified depression type documented in this encounter Care Teams Power Sweeper Operator Relationship Specialty Start Date End Date Valencia Adhikari APRN [address] [place] [address] PCP - General 04/21/14 07/04/23 documented as of this encounter
--- OUTSIDE RECORDS SUMMARY | 2024-02-21 14:46 | XMS_ITS | Encounter Summary ---
Author Organization [facility] [place] [address] Care Team Providers Care Civil Engineer Name Role Phone OnofreMarilynValenciaadan Barton APRN Primary Care Provider +1 -[phone] Encounter Details Date Type Department Care Team (Late st Contact Info) Description 10/28/2018 Orders Only Psychiatry [place] [phone] Argelia Mccray APRN [facility] [place] [address] Anxiety Social History Tobacco Use Types Packs/Day [...] 03/03/2024 3:00 PM EST Appointment [place] [address] Linda Diaz MD [facility] [place] [address] 03/03/2024 4:00 PM EST Routine Obstetrics and Gynecology at [address]1000 Linda Diaz MD [facility] [place] [address] 03/03/2024 4:30 PM EST Scheduled View Only Obstetrics and Gynecology at [place] [address] 03/12/2024 10:45 AM EST Office Visit Endocrinology at [place] [address] James Barth DO [facility] [place] [address] 05/23/2024 [place] [address] Maite Malloy MD [facility] DR OBSTETRICS [place] [address] documented as of this encounter Visit Diagnoses Diagnosis Anxiety Anxiety state, unspecified documented in this encounter Care Teams Civil Engineer Relationship Specialty Start Date End Date Valencia Adhikari APRN [address] [place] [address] PCP - General 04/21/14 07/04/23 documented as of this encounter
--- OUTSIDE RECORDS SUMMARY | 2024-02-21 14:46 | XMS_ITS | Encounter Summary ---
Author Organization [facility] [place] [address] Care Team Providers Care Fire Safety Manager Name Role Phone OnofreMarilynValenciaadan Barton APRN Primary Care Provider +1 -[phone] Encounter Details Date Type Department Care Team (Late st Contact Info) Description 01/28/2018 Tele[place] [address] Martínez Knight Social History Tobacco [...] 03/03/2024 3:00 PM [place] [address] [facility] [place] [address] 03/03/2024 4:00 PM EST Routine Obstetrics [place] [address] [facility] DR MATERNAL [place] [address] 03/03/2024 4:30 PM EST Scheduled View Only Obstetrics and Gynecology at [address] 03/12/2024 10:45 AM EST Office [place] [address] [facility] DR [place] [address] 05/23/2024 Hospital [place] [address] [facility] DR OBSTETRICS [place] [address] documented as of this encounter Visit Diagnoses Not on filedocumented in this encounter Care Teams Fire Safety Manager Relationship Specialty Start Date End Date Valencia Adhikari APRN [address] [place] [address] PCP - General 04/21/14 07/04/23 documented as of this encounter
--- OUTSIDE RECORDS SUMMARY | 2024-02-21 14:46 | XMS_ITS | Encounter Summary ---
Author Organization [facility] Address [facility] [place] [address] Care Team Providers Care Applier Name Role Phone Valencia Adhikari BERLIN Primary Care Provider +1 -[phone] Encounter Details Date Type Department Care Team (Late st Contact Info) Description 01/28/2018 11:59 PM EDT Anesthesia Event [place] [phone] Harsha Pérez MD [facility] [place] [address] Anesthesia Record Procedure Summary Procedure Name Responsible [...] 03/03/2024 3:00 PM EST Appointment Radiology at [address]1000 Linda Diaz MD [facility] [place] [address] 03/03/2024 4:00 PM EST Routine Obstetrics and Gynecology at [place] [phone] Linda Diaz MD [facility] [place] [address] 03/03/2024 4:30 PM EST Scheduled View Only Obstetrics and Gynecology at [address] 03/12/2024 10:45 AM EST Office Visit Endocrinology at [address]1000 James Barth DO [facility] [place] [address] 05/23/2024 Hospital Encounter Birthing [place] [phone] Maite Malloy MD [facility] DR OBSTETRICS [place] [address] documented as of this encounter Visit Diagnoses Not on filedocumented in this encounter Care Teams Applier Relationship Specialty Start Date End Date Valencia Adhikari APRN [address] [place] [address] PCP - General 04/21/14 07/04/23 documented as of this encounter
--- OUTSIDE RECORDS SUMMARY | 2024-02-21 14:46 | XMS_ITS | Encounter Summary ---
Author Organization [facility] [place] [address] Care Team Providers Care Sail Repairer Name Role Phone Onofre Valenciaadan Barton APRN Primary Care Provider +1 -[phone] Encounter Details Date Type Department Care Team (Late st Contact Info) Description 10/03/2018 Orders Only Psychiatry [place] [address] Argelia Mccray APRN [facility] [place] [address] Anxiety Social History Tobacco Use Types Packs/Day [...] 03/03/2024 3:00 PM [place] [address] Linda Diaz MD [facility] [place] [address] 03/03/2024 4:00 PM EST Routine Obstetrics and Gynecology at [address]1000 Linda Diaz MD [facility] MATERNAL [place] [address] 03/03/2024 4:30 PM EST Scheduled View Only Obstetrics and Gynecology at [place] [address] 03/12/2024 10:45 AM EST Office Visit Endocrinology at [place] [address] James Barth DO [facility] DR [place] [address] 05/23/2024 [place] [address] Maite Malloy MD [facility] DR OBSTETRICS [place] [address] documented as of this encounter Visit Diagnoses Diagnosis Anxiety Anxiety state, unspecified documented in this encounter Care Teams Sail Repairer Relationship Specialty Start Date End Date Valencia Adhikari APRN [address] [place] [address] PCP - General 04/21/14 07/04/23 documented as of this encounter
--- OUTSIDE RECORDS SUMMARY | 2024-02-21 14:46 | XMS_ITS | Encounter Summary ---
Author Organization [facility] Address [facility] [place] [address] Care Team Providers Care Freight Trucker Name Role Phone Onofre Valencia Barton APRN Primary Care Provider +1 -[phone] Reason for Visit * Reason Onset Date Comments Medication Refill 04/22/2020 Encounter Details Date Type Department Care Team (Late st Contact Info) Description 04/22/2020 Refill Psychiatry [place] [address] Crispin Fuller MD [facility] [place] [address] Depression, unspecified depression type; Anxiety Social History [...] 03/03/2024 3:00 PM [place] [address] Linda Diaz MD [facility] [place] [address] 03/03/2024 4:00 PM EST Routine Obstetrics and Gynecology at [place] [phone] Linda Diaz MD [facility] DR MATERNAL [place] [address] 03/03/2024 4:30 PM EST Scheduled View Only Obstetrics and Gynecology at [place] [phone] 03/12/2024 10:45 AM EST Office Visit Endocrinology at [address]1000 James Barth DO [facility] DR [place]OCRIN[place] [address] 05/23/2024 Hospital Encounter Birthing [place] [phone] Maite Malloy MD [facility] DR OBSTETRICS [place] [address] documented as of this encounter Visit Diagnoses Diagnosis Depression, unspecified depression type Anxiety Anxiety state, unspecified documented in this encounter Care Teams Freight Trucker Relationship Specialty Start Date End Date Valencia Adhikari APRN [address] [place] [address] PCP - General 04/21/14 07/04/23 documented as of this encounter
--- OUTSIDE RECORDS SUMMARY | 2024-02-21 14:46 | XMS_ITS | Encounter Summary ---
Author Organization [facility] Address [facility] [place] [address] Care Team Providers Care Marine Service Manager Name Role Phone OnofreMarilynValencia Oralia SLADE Primary Care Provider +1 -[phone] Reason for Visit * Reason Onset Date Comments Medication Refill 08/02/2018 Encounter Details Date Type Department Care Team (Late st Contact Info) Description 08/02/2018 Refill Psychiatry and [place] [phone] Osmar South, RN Anxiety Social History Tobacco Use Types [...] 03/03/2024 3:00 PM EST Appointment [place] [address] Linda Diaz MD [facility] [place] [address] 03/03/2024 4:00 PM EST Routine Obstetrics [place] [address] Linda Diaz MD [facility] [place] [address] 03/03/2024 4:30 PM EST Scheduled View Only Obstetrics and Gynecology at [address]1000 03/12/2024 10:45 AM EST Office Visit Endocrinology at [address]1000 James Barth DO [facility] [place] [address] 05/23/2024 Hospital Encounter Birthing [place] [phone] Maite Malloy MD [facility] DR OBSTETRICS [place] [address] documented as of this encounter Visit Diagnoses Diagnosis Anxiety Anxiety state, unspecified documented in this encounter Care Teams Marine Service Manager Relationship Specialty Start Date End Date Valencia Adhikari APRN [address] [place] [address] PCP - General 04/21/14 07/04/23 documented as of this encounter
--- OUTSIDE RECORDS SUMMARY | 2024-02-21 14:46 | XMS_ITS | Encounter Summary ---
Author Organization [facility] Address [facility] [place] [address] Care Team Providers Care Cultured Marble Products Maker Name Role Phone Valencia Adhikari APRN Primary Care Provider +1 -[phone] Reason for Referral * Consultation (Routine) - Closed Specialty Diagnoses / Procedures Referred By Lamont riggins Referred To Contact Pain Management Diagnoses Scapular dyskinesis Alicia Oviedo APRN [facility] [place] [address] [facility] [address] [place] [address] Referral ID Status Reason Start Date Expiration Date V isits Requested Visits Authorized [id number] Closed Consult, Test & Treat 11/16/2017 11/16/2018 1 1 Reason for Visit * Reason Comments Left Shoulder Pain workers comp DOI Encounter Details Date Type Department Care Team (Late st Contact Info) Description 11/16/2017 10:20 AM EDT Office [place] [address] Alicia Oviedo APRN [facility] [place] [address] Scapular dyskinesis (Primary Dx); Chronic [...] this encounter Progress Notes * Alicia Oviedo, SOFT MUD MOLDER - 11/16/2017 10:20 AM EDT Chief complaint: chronic work related LEFT shoulder pain Problem List Items Addressed This Visit Chronic left shoulder pain Scapular dyskinesis Work Related : YES DOI: 09/06/2017 History of present illness: [facility] a 27 y.o. year-old female is [...] she may need to consider a functional congregational program and alternate vocation. Pt agrees, questions [...] 03/03/2024 3:00 PM [place] [address] Linda Diaz MD [facility] [place] [address] 03/03/2024 4:00 PM EST Routine Obstetrics and Gynecology at [place] [phone] Linda Diaz MD [facility] [place] [address] 03/03/2024 4:30 PM EST Scheduled View Only Obstetrics and Gynecology at [address]1000 03/12/2024 10:45 AM EST Office Visit Endocrinology at [place] [phone] James Barth DO [facility] [place] [address] 05/23/2024 Hospital [place] [address] Maite Malloy MD [facility] DR OBSTETRICS [place] [address] Scheduled Referrals Name Type Priority Associated Diagnoses Orde r Schedule Referral to Pain Clinic Outpatient Referral Routine Scapular dyskinesis Ordered: 11/16/2017 documented as of this encounter Visit Diagnoses Diagnosis Scapular dyskinesis- Primary Lack of coordination Chronic left shoulder pain Pain in joint, shoulder region documented in this encounter Care Teams Cultured Marble Products Maker Relationship Specialty Start Date End Date Valencia Adhikari APRN [address] [place] [address] PCP - General 04/21/14 07/04/23 documented as of this encounter
--- OUTSIDE RECORDS SUMMARY | 2024-02-21 14:46 | XMS_ITS | Encounter Summary ---
Author Organization [facility] [place] [address] Care Team Providers Care Marketing Communications Specialist Name Role Phone Valencia Adhikari APRN Primary Care Provider [phone] [phone] Reason for Visit * Reason Onset Date Comments Medication Refill 10/26/2018 Encounter Details Date Type Department Care Team (Late st Contact Info) Description 10/26/2018 [place] [address] Alicia Oviedo APRN [facility] [place] [address] Left shoulder pain, unspecified chronicity Social History [...] 03/03/2024 3:00 PM [place] [address] Linda Diaz MD [facility] [place] [address] 03/03/2024 4:00 PM EST Routine Obstetrics and Gynecology at [place] [phone] Linda Diaz MD [facility] [place] [address] 03/03/2024 4:30 PM EST Scheduled View Only Obstetrics and Gynecology at [place] [phone] 03/12/2024 10:45 AM EST Office Visit Endocrinology at [address] James Barth DO [facility] [place] [address] 05/23/2024 Hospital Encounter Birthing [place] [phone] Maite Malloy MD [facility] DR OBSTETRICS [place] [address] documented as of this encounter Visit Diagnoses Diagnosis Left shoulder pain, unspecified chronicity documented in this encounter Care Teams Marketing Communications Specialist Relationship Specialty Start Date End Date Valencia Adhikari APRN [address] [place] [address] PCP - General 04/21/14 07/04/23 documented as of this encounter
--- OUTSIDE RECORDS SUMMARY | 2024-02-21 14:46 | XMS_ITS | Encounter Summary ---
Author Organization [facility] Address [facility] [place] [address] Care Team Providers Care Executive Director Name Role Phone OnofreMarilynValenciaadan Barton APRN Primary Care Provider +1 [phone] Encounter Details Date Type Department Care Team (Late st Contact Info) Description 02/22/2018 Orders Only Psychiatry [place] [phone] Argelia Mccray APRN [facility] [place] [address] Depression, unspecified depression type; Anxiety Social History [...] 03/03/2024 3:00 PM EST [place] [phone] Linda Daiz MD [facility] MATERNAL [place] [address] 03/03/2024 4:00 PM EST Routine Obstetrics and Gynecology at [place] [address] Linda Diaz MD [facility] [place] [address] 03/03/2024 4:30 PM EST Scheduled View Only Obstetrics and Gynecology at [address]1000 03/12/2024 10:45 AM EST Office Visit Endocrinology at [place] [address] James Barth DO [facility] [place] [address] 05/23/2024 Hospital Encounter Birthing [place] [phone] Maite Malloy MD [facility] DR OB[place] [address] documented as of this encounter Visit Diagnoses Diagnosis Depression, unspecified depression type Anxiety Anxiety state, unspecified documented in this encounter Care Teams Executive Director Relationship Specialty Start Date End Date Valencia Adhikari APRN [address] [place] [address] PCP - General 04/21/14 07/04/23 documented as of this encounter
--- OUTSIDE RECORDS SUMMARY | 2024-02-21 14:47 | XMS_ITS | Encounter Summary ---
Author Organization [facility] Address [facility] [place] [address] Care Team Providers Care Framing Specialist Name Role Phone Valencia Adhikari APRN Primary Care Provider [phone] [phone] Reason for Referral * Physical Therapy (Routine) - Specialty Diagnoses / Procedures Referred By Lamont riggins Referred To Contact Physical Therapy Diagnoses Chronic left shoulder pain Scapular dyskinesis Alicia Oviedo APRN [facility] [place] [address] Referral ID Status Reason Start Date Expiration Date V isits Requested Visits Authorized [id number] Evaluate and Treat 09/13/2017 03/12/2018 12 12 Reason for Visit * Reason Comments Left Shoulder Pain WC DOI: 09/06/16 Encounter Details Date Type Department Care Team (Late st Contact Info) Description 09/13/2017 1:55 PM EDT Office [place] [address] Laura Schneider MD [facility] [place] [address] Scapular dyskinesis (Primary Dx); Chronic left shoulder [...] this encounter Progress Notes * Alicia Oviedo, SURVEY RESEARCH MANAGER - 09/13/2017 1:55 PM EDT This patient [...] She has been to multiple providers at [facility] for her pain including Dr. Santos, Meliton [...] MONITORING, SETUP performed by JUAN ESPARZA at [facility] MAIN OR ??? PRO THYROIDECTOMY, MALIG, LTD NECK SURG 03/22/2011 THYROIDECTOMY, FOR MALIGNANCY, LIMITED NECK DISSECTION performed by JUAN ESPARZA at [facility] MAIN OR ??? TONSILLECTOMY 2010 [...] ?? Empty can test - Negative ?? Vik's test - N/A ?? Labrum tests ?? [...] remain out of work at this time, [facility] RTW forms completed. Voc rehab recommended. Pt agrees, questions solicited/answered, will return as scheduled and as needed for concerns or questions. Pt understands they may also call us prn for above. documented in this encounter Plan of Treatment Upcoming Encounters Date Type Department Care Team (Late st Contact Info) Description 03/03/2024 3:00 PM [place] [address] Linda Diaz MD [facility] MATERNAL [place] [address] 03/03/2024 4:00 PM EST Routine Obstetrics and Gynecology at [place] [phone] Linda Diaz MD [facility] MATERNAL [place] [address] 03/03/2024 4:30 PM EST Scheduled View Only Obstetrics and Gynecology at [address] 03/12/2024 10:45 AM EST Office Visit Endocrinology at [place] [phone] James Barth DO [facility] [place] [address] 05/23/2024 Hospital Encounter Birthing [place] [phone] Maite Malloy MD [facility] DR OBSTETRICS [place] [address] Scheduled Referrals Name Type Priority Associated Diagnoses Orde r Schedule Referral to Physical Therapy Outpatient Referral Routine Chronic left shoulder pain Scapular dyskinesis Ordered: 09/13/2017 documented as of this encounter Visit Diagnoses Diagnosis Scapular dyskinesis- Primary Lack of coordination Chronic left shoulder pain Pain in joint, shoulder region documented in this encounter Care Teams Framing Specialist Relationship Specialty Start Date End Date Valencia Adhikari APRN [address] [place] [address] PCP - General 04/21/14 07/04/23 documented as of this encounter
--- OUTSIDE RECORDS SUMMARY | 2024-02-21 14:47 | XMS_ITS | Encounter Summary ---
[place] [address] Care Team Providers Care Gunnery/Ordnance Officer Name Role Phone Valencia Adhikari APRN Primary Care Provider [phone] [phone] Reason for Referral * Diagnostic Test (Routine) - Closed Specialty Diagnoses / Procedures Referred By Lamont riggins Referred To Contact Radiology Diagnoses Paresthesias/numbness Procedures MRI Brain wwo Contrast (Generic) Joceline Bustillo APRN [address] [place] [address] [place] [address] Referral ID Status Reason Start Date Expiration Date V isits Requested Visits Authorized [id number] Closed Specialty Service Requested 01/12/2017 01/12/2018 1 1 Reason for Visit * Diagnostic Test (Routine) - Closed Specialty Diagnoses / Procedures Referred By Contac gilson Referred To Contact Radiology Diagnoses Paresthesias/numbness Procedures MRI Brain wwo Contrast (Generic) Joceline Bustillo APRN [address] [place] [address] [place] [address] Referral ID Status Reason Start Date Expiration Date V isits Requested Visits Authorized [id number] Closed Specialty Service Requested 01/12/2017 01/12/2018 1 1 Encounter Details Date Type Department Care Team (Latest Contact Info) Description 02/09/2017 8:18 AM EDT - 02/09/2017 11:59 PM EDT Hospital [place] [address] Joceline Bustillo APRN [address] [place] [address] Paresthesias/numbne ss Discharge Disposition: Home Social History [...] 03/03/2024 3:00 PM EST [place] [address] Linda Diaz MD [facility] MATERNAL [place] [address] 03/03/2024 4:00 PM EST Routine Obstetrics and Gynecology at [place] [phone] Linda Diaz MD [facility] DR MATERNAL [place] [address] 03/03/2024 4:30 PM EST Scheduled View Only Obstetrics and Gynecology at [place] [phone] 03/12/2024 10:45 AM EST Office Visit Endocrinology at [place] [phone] James Barth DO [facility] DR [place]OCRIN[place] [address] 05/23/2024 Hospital Encounter Birthing [place] [phone] Maite Malloy MD [facility] DR OBSTETRICS [place] [address] documented as of this encounter Procedures Procedure [...] mLs documented in this encounter Care Teams Gunnery/Ordnance Officer Relationship Specialty Start Date End Date Valencia Adhikari APRN [address] [place] [address] PCP - General 04/21/14 07/04/23 documented as of this encounter
--- OUTSIDE RECORDS SUMMARY | 2024-02-21 14:47 | XMS_ITS | Encounter Summary ---
Author Organization [facility] [place] [address] Care Team Providers Care Joint Filler Name Role Phone Valencia Adhikari APRN Primary Care Provider +1 [phone] Encounter Details Date Type Department Care Team (Late st Contact Info) Description 08/09/2017 Telephone Psychiatry [place] [address] Geovanna Méndez Social History Tobacco Use Types [...] for her there. Her phone number is [phone] Sandie Austin documented in this encounter Plan of Treatment Upcoming Encounters Date Type Department Care Team (Late st Contact Info) Description 03/03/2024 3:00 PM EST Appointment Radiology at [address]1000 Linda Diaz MD [facility] [place] [address] 03/03/2024 4:00 PM EST Routine Obstetrics [place] [address] Linda Diaz MD [facility] [place] [address] 03/03/2024 4:30 PM EST Scheduled View Only Obstetrics [place] [address] 03/12/2024 10:45 AM EST Office Visit Endocrinology at [place] [address] James Barth DO [facility] [place] [address] 05/23/2024 [place] [address] Maite Malloy MD [facility] [address] OBSTETRICS [place] [address] documented as of this encounter Visit Diagnoses Not on filedocumented in this encounter Care Teams Joint Filler Relationship Specialty Start Date End Date Valencia Adhikari APRN [address] [place] [address] PCP - General 04/21/14 07/04/23 documented as of this encounter
--- OUTSIDE RECORDS SUMMARY | 2024-02-21 14:47 | XMS_ITS | Encounter Summary ---
Author Organization [facility] [address] Care Team Providers Care Computing Systems Mechanic Name Role Phone Valencia Adhikari APRN Primary Care Provider [phone] [phone] Encounter Details Date Type Department Care Team (Late st Contact Info) Description 05/08/2016 4:00 PM EST Office Visit Obstetrics [place] [phone] Valencia Bourne CNM [facility] OBSTETRICS & [place] [address] IUD check up Social History Tobacco Use [...] 03/03/2024 3:00 PM EST Appointment [place] [address] Linda Diaz MD [facility] [place] [address] 03/03/2024 4:00 PM EST Routine Obstetrics [place] [address] Linda Diaz MD [facility] [place] [address] 03/03/2024 4:30 PM EST Scheduled View Only Obstetrics [place] [address] 03/12/2024 10:45 AM EST Office Visit [place] [address] James Barth DO [facility] [place] [address] 05/23/2024 Hospital Encounter Birthing [facility] [place] [phone] Maite Malloy MD [facility] OBSTETRICS [place] [address] documented as of this encounter Visit Diagnoses Diagnosis IUD check up Surveillance of previously prescribed intrauterine contraceptive device documented in this encounter Care Teams Computing Systems Mechanic Relationship Specialty Start Date End Date Valencia Adhikari APRN [address] [place] [address] PCP - General 04/21/14 07/04/23 documented as of this encounter
--- OUTSIDE RECORDS SUMMARY | 2024-02-21 14:47 | XMS_ITS | Encounter Summary ---
Author Organization [facility] Address [facility] [place] [address] Care Team Providers Care Concrete Form Setter And Finisher Name Role Phone Valencia Adhikari APRN Primary Care Provider +1 [phone] Encounter Details Date Type Department Care Team (Latest Contact Info) Description 05/15/2017 10:47 AM EST - 05/15/2017 11:59 PM [facility] Hospital Encounter XRay at [address] [place] [address] Kedar Santos MD [facility] [place] [address] Left shoulder pain, unspecified chronicity Discharge Disposition: [...] 03/03/2024 3:00 PM [place] [address] Linda Diaz MD [facility] MATERNAL [place] [address] 03/03/2024 4:00 PM EST Routine Obstetrics [place] [address] Linda Diaz MD [facility] MATERNAL [place] [address] 03/03/2024 4:30 PM EST Scheduled View Only Obstetrics [place] [address] 03/12/2024 10:45 AM EST Office [place] [address] James Barth DO [facility] [place] [address] 05/23/2024 Hospital Encounter Birthing [facility] [place] [address] Maite Malloy MD [facility] OBSTETRICS [place] [address] documented as of this encounter Procedures Procedure [...] chronicity documented in this encounter Care Teams Concrete Form Setter And Finisher Relationship Specialty Start Date End Date Valencia Adhikari APRN [address] [place] [address] PCP - General 04/21/14 07/04/23 documented as of this encounter
--- OUTSIDE RECORDS SUMMARY | 2024-02-21 14:47 | XMS_ITS | Encounter Summary ---
Author Organization [facility] Address [facility] [place] [address] Care Team Providers Care Acute Specialist Name Role Phone Valencia Adhikari APRN Primary Care Provider [phone] [phone] Reason for Visit * Reason Comments Left Shoulder Pain Encounter Details Date Type Department Care Team (Late st Contact Info) Description 09/12/2017 11:10 AM EDT Office Visit [place] [address] Kedar Rowe MD [facility] [place] [address] Chronic left shoulder pain (Primary Dx) Social [...] radial, ulnar. EPL, FPL, interossei intact. Positive Fielding's test. With Speed and Yergason she has [...] 03/03/2024 3:00 PM EST Appointment [place] [address] Linda Diaz MD [facility] [place]ERNAL [place] [address] 03/03/2024 4:00 PM EST Routine Obstetrics [place] [address] Linda Diaz MD [facility] [place]ERNAL [place] [address] 03/03/2024 4:30 PM EST Scheduled View Only Obstetrics and [place] [address] 03/12/2024 10:45 AM EST Office Visit [place] [address] James Barth DO [facility] [place] [address] 05/23/2024 Hospital [place] [address] Maite Malloy MD [facility] DR OBSTETRICS [place] [address] documented as of this encounter Visit Diagnoses [...] mg documented in this encounter Care Teams Acute Specialist Relationship Specialty Start Date End Date Valencia Adhikari APRN [address] [place] [address] PCP - General 04/21/14 07/04/23 documented as of this encounter
--- OUTSIDE RECORDS SUMMARY | 2024-02-21 14:47 | XMS_ITS | Encounter Summary ---
[place] [address] Care Team Providers Care Project Manager Senior Name Role Phone Valencia Adhikari APRN Primary Care Provider [phone] [phone] Reason for Visit * Reason Onset Date Comments Pre Procedure Call 07/03/2017 Encounter Details Date Type Department Care Team (Late st Contact Info) Description 07/03/2017 Telephone [place] [address] Valentina Rincon LNA Pre Procedure Call Social [...] instructed to arrive at 8:00AM on 07/05/2017. Lost And Found Clerk: The patient was reminded that they need to have a straddle truck driver accompany them to her procedure [...] No Prior to checking in at [employer], please be sure to empty your bladder. Patient confirmed understanding that if they do not follow the above their instructions, their procedure is likely to be cancelled. KIERAN Earl documented in this encounter Plan of Treatment Upcoming Encounters Date Type Department Care Team (Late st Contact Info) Description 03/03/2024 3:00 PM EST Appointment [place] [address] Linda Diaz MD [facility] [place] [address] 03/03/2024 4:00 PM EST Routine Obstetrics [place] [address] Linda Diaz MD [facility] [place] [address] 03/03/2024 4:30 PM EST Scheduled View Only Obstetrics and Gynecology at [address]1000 03/12/2024 10:45 AM EST Office Visit Endocrinology at [address]1000 James Barth DO [facility] [place] [address] 05/23/2024 Hospital Encounter Birthing [place] [phone] Maite Malloy MD [facility] DR [place] [address] documented as of this encounter Visit Diagnoses Not on filedocumented in this encounter Care Teams Project Manager Senior Relationship Specialty Start Date End Date Valencia Adhikari APRN [address] [place] [address] PCP - General 04/21/14 07/04/23 documented as of this encounter
--- OUTSIDE RECORDS SUMMARY | 2024-02-21 14:47 | XMS_ITS | Encounter Summary ---
Author Organization [facility] Address [facility] [place] [address] Care Team Providers Care Christmas Tree Contractor Name Role Phone Valencia Adhikari APRN Primary Care Provider [phone] [phone] Encounter Details Date Type Department Care Team (Latest Contact Info) Description 09/06/2016 - 09/06/2016 11:59 PM EDT Hospital Encounter Radiology Library at [facility] [place] [address] Kedar Santos MD [facility] [place] [address] Discharge Disposition: Home Social History Tobacco Use [...] PM EST Appointment Radiology at [place] [phone] Linda Diaz MD [facility] [place] [address] 03/03/2024 4:00 PM EST Routine Obstetrics and Gynecology at [place] [phone] Linda Diaz MD [facility] [place] [address] 03/03/2024 4:30 PM EST Scheduled View Only Obstetrics and Gynecology at [address]1000 03/12/2024 10:45 AM EST Office Visit Endocrinology at [place] [phone] James Barth DO [facility] [place] [address] 05/23/2024 Hospital [place] [address] Maite Malloy MD [facility] DR OBSTETRICS [place] [address] documented as of this encounter Procedures Procedure [...] Santos MD G FILM LIBRARY ORD ERABLES Performing Organization Address City/State/[facility] Co de Phone Number [place], [place] documented in this encounter Visit Diagnoses Not on filedocumented in this encounter Care Teams Christmas Tree Contractor Relationship Specialty Start Date End Date Valencia Adhikari APRN [address] [place] [address] PCP - General 04/21/14 07/04/23 documented as of this encounter
--- OUTSIDE RECORDS SUMMARY | 2024-02-21 14:47 | XMS_ITS | Encounter Summary ---
Author Organization Formerly [facility] [place] [address] Care Team Providers Care Fingernail Sculpturer Name Role Phone Valencia Adhikari APRN Primary Care Provider [phone] Reason for Visit * Reason Comments Bipolar Disorder Encounter Details Date Type Department Care Team (Late st Contact Info) Description 08/30/2017 9:00 AM EDT Office Visit Psychiatry [place] [phone] Argelia Mccray FINISH OPENER [facility] [place] [address] Anxiety; Depression, unspecified depression type Social History [...] this encounter Progress Notes * Argelia Mccray, FINISH OPENER - 08/30/2017 9:00 AM EDT ESTABLISHED ADULT [...] intact during interview ? Language: Normal/fluent in Citizen Of [place] ? Fund of Knowledge: Appropriate Psychotherapeutic Interventions [...] 03/03/2024 3:00 PM [place] [phone] Linda Diaz MD [facility] MATERNAL [place] [address] 03/03/2024 4:00 PM EST Routine Obstetrics [place] [phone] Linda Diaz MD [facility] MATERNAL [place] [address] 03/03/2024 4:30 PM EST Scheduled View Only Obstetrics [place] [address] 03/12/2024 10:45 AM EST Office Visit Endocrinology at [facility] [place] [address] James Barth DO [facility] DR [place]OCRIN[place] [address] 05/23/2024 Hospital Encounter Birthing [facility] [place] [address] Maite Malloy MD [facility] DR OBSTETRICS [place] [address] documented as of this encounter Procedures Procedure [...] 10:05 AM EDT) Neutrophil % 63.1 % [facility] Neutrophil Absolute 5.14 1.70 - 6.10 x10(3)/[facility] Lymph % 24.4 % [facility] Lymphocytes Abs 2.0 0.9 - 3.2 x10(3)/[facility] Monocyte % 10.0 % [facility] Monocyte Abs 0.8 0.3 - 0.9 x10(3)/[facility] Eos % 1.5 % [facility] Eosinophils Abs 0.1 0.0 - 0.4 x10(3)/[facility] Basophil % 0.6 % [facility] Baso Absolute 0.0 0.0 - 0.1 x10(3)/[facility] Immature Gran % 0.40 % [facility] Comment: Immature granulocytes(IG's)percentage and absolute count will include metamyelocytes, myelocytes, and promyelocytes. Blood smears from CBCs yielding IG's will be scanned manually for concordance. If this scan disagrees with the automated IG or if promyelocytes are noted, a manual differential will be performed. Immature Gran Absolute 0.03 0.00 - 0.04 x10(3)/[facility] Blood specimen (specimen) 08/30/2017 10:05 AM EDT 08/30/2017 10:13 AM EDT Narrative Resulting Agency Comment Spec In Lab Argelia Mccray APRN HEMATOLOGY [place] [facility] [place] [address] * (ABNORMAL) Hemogram (08/30/2017 10:05 AM EDT) White Blood Cell 8.1 4.0 - 9.5 x10(3)/mc L [facility] Red Blood Cell 3.98(L) 4.00 - 5.21 x10(6)/mc L [facility] Hemoglobin 13.6 11.7 - 15.5 gm/dL [facility] Hematocrit 40.5 35.7 - 45.8 % [facility] Mean Cell Volume 101.8(H) 82.6 - 94.4 fL [facility] Mean Cell Hemoglobin 34.2(H) 27.1 - 32.0 pg [facility] Mean Cell Hemoglobin Concentration 33.6 31.7 - 35.0 gm/dL [facility] Platelet 185 145 - 357 x10(3)/[facility] RDW Standard Deviation 48.9(H) 37.0 - 46.0 [facility] RDW coefficient of variation 12.9 11.5 - 14.1 % [facility] Mean Platelet Volume 11.6 7.6 - 12.9 fL [facility] NRBC% auto 0.0 % [facility] NRBC Absolute 0.000 0.000 - 0.000 x10(3)/ L [facility] Blood specimen (specimen) 08/30/2017 10:05 AM EDT 08/30/2017 10:13 AM EDT Narrative Resulting Agency Comment Spec In Lab Argelia Mccray APRN HEMATOLOGY [place] [facility] [place] [address] * (ABNORMAL) Lamotrigine Lvl (08/30/2017 10:05 AM EDT) Pathologist [facility] Lamotrigine Lvl (AUGUST) 1.9(L) 2.5 - 15.0 mcg/mL [facility] Comment: ADDITIONAL INFORMATION This test was developed and its performance characteristics determined by [facility] in a manner consistent with CLIA requirements. This test has not been cleared or approved by the U.S. Food and Drug Administration. Test Performed by: [facility] [address] [place] [address] Blood specimen (specimen) 08/30/2017 10:05 AM EDT 08/30/2017 1:24 PM EDT Narrative Resulting Agency Comment Spec In Lab Argelia Mccray APRN LAB SEND OUT OR DERABLES [facility] [place] [address] * Vitamin D, 25-Hydroxy (08/30/2017 10:05 AM EDT) Vitamin D Total 25 OH 33 30 - 100 ng/mL [facility] Comment: Deficient <10 ng/mL Insufficient 10 to 29 ng/mL Sufficient 30 to 100 ng/mL Potential Intoxication >100 ng/mL According to the US National Osteoporosis Foundation, Vitamin D concentrations >30 ng/mL are sufficient to protect bone health. ??The National Kidney Foundation has similarly stated that patients with Vitamin D concentrations <30ng/mL should be considered to be insufficient or deficient. http://Sawerly.com/nkf-guidelines http://Sawerly.Magic Wheels/nejm-VitD The IDS iSYS Vitamin D Immunoassay detects both 25-OH Vitamin D2 and 25-OH Vitamin D3, but only a total Vitamin D concentration is reported. Blood specimen (specimen) 08/30/2017 10:05 AM EDT 08/30/2017 1:29 PM EDT Narrative Resulting Agency Comment Spec In Lab Argelia Mccray APRN CHEMISTRY ORDER AMANDA Performing Organization Address City/[facility]/ZIP Co de Phone Number [facility] [place] [address] * (ABNORMAL) Comprehensive metabolic panel (non-fasting) (08/30/2017 10:05 AM EDT) Glucose 85 65 - 199 mg/dL [facility] Comment:Diabetes: >=200 mg/d L plus symptoms Blood Urea Nitrogen 7(L) 8 - 18 mg/dL [facility] Creatinine 0.68(L) 0.70 - 1.20 mg/dL [facility] Sodium 138 135 - 145 mmol/L [facility] Potassium 4.5 3.5 - 5.0 mmol/L [facility] Comment: Please note: ??Patients with WBC >100,000 may have falsely elevated Potassium levels. ??For accurate Potassium quantification in these patients send serum separator tube (gold top) for subsequent determinations. ??Contact the Clinical Chemistry Laboratory if there are any questions. Chloride 102 98 - 107 mmol/L [facility] Carbon Dioxide 27 22 - 31 mmol/L [facility] Anion Gap 9 5 - 15 mmol/L [facility] Calcium 8.8 8.5 - 10.5 mg/dL [facility] Protein, Total 6.3 6.1 - 8.0 gm/dL [facility] Albumin 4.5 3.2 - 5.2 gm/dL [facility] Aspartate Aminotransferase 12 0 - 30 unit/L [facility] Alanine Aminotransferase 9 0 - 30 unit/L [facility] Alkaline Phosphatase 70 40 - 104 unit/L [facility] Bilirubin, Total 0.5 0.2 - 1.3 mg/dL [facility] Est Glomerular Filtration Rate >60 >=60 [facility] Comment: The reported eGFR should be multiplied by 1.2 for patients. The MDRD is not an appropriate measure of renal function for patients with body mass extremes or in patients with acute kidney failure. http://Sawerly.Magic Wheels/DHnkdep http://Sawerly.Magic Wheels/DHnkf Blood specimen (specimen) 08/30/2017 10:05 AM EDT 08/30/2017 10:13 AM EDT Narrative Resulting Agency Comment Spec In Lab Argelia Mccray APRN CHEMISTRY ORDER AMANDA Performing Organization Address City/[facility]/ZIP Co de Phone Number [facility] [place] [address] * (ABNORMAL) TSH (08/30/2017 10:05 AM EDT) Thyroid Stimulating Hormone 15.40(H) 0.27 - 4.20 mlU/ML [facility] Blood specimen (specimen) 08/30/2017 10:05 AM EDT 08/30/2017 10:13 AM EDT Narrative Resulting Agency Comment Spec In Lab Argelia Mccray APRN CHEMISTRY ORDER AMANDA Performing Organization Address [facility] Co de Phone Number [facility] [address] * Thyroglobulin Antibody (08/30/2017 10:05 AM EDT) Thyroglob Ab <20.0 0.0 - 40.0 IU/mL [facility] Comment: Assay performed is the DPC Immulite Tg-Ab immunometric assay. (Cutoff for TgAb negativity is <20 IU/ml) Blood specimen (specimen) 08/30/2017 10:05 AM EDT 08/30/2017 1:39 PM EDT Narrative Resulting Agency Comment Spec In Lab Argelia Mccray APRN LAB SEND OUT OR DERABLES Performing Organization Address City/[facility]/ZIP Co de Phone Number [facility] [place] [address] * T4, free (08/30/2017 10:05 AM EDT) Free T4 1.58 0.93 - 1.70 ng/dL [facility] Blood specimen (specimen) 08/30/2017 10:05 AM EDT 08/30/2017 10:13 AM EDT Narrative Resulting Agency Comment Spec In Lab Argelia Mccray APRN CHEMISTRY ORDER AMANDA [facility] [address] * T4 Total (08/30/2017 10:05 AM EDT) T4 Total 7.4 5.1 - 10.8 mcg/dL [facility] Comment: Reference Range: Cord Blood: ??6.9-14.4 mcg/dL Females: ??7.2-14.2 mcg/dL Pediatric ranges: ??Interpret with caution-ranges have not been verified Blood specimen (specimen) 08/30/2017 10:05 AM EDT 08/30/2017 10:13 AM EDT Narrative Resulting Agency Comment Spec In Lab Argelia Mccray APRN CHEMISTRY ORDER AMANDA [facility] [address] * T3, free (08/30/2017 10:05 AM EDT) Free T3 2.8 2.0 - 4.4 pg/mL [facility] Blood specimen (specimen) 08/30/2017 10:05 AM EDT 08/30/2017 10:13 AM EDT Narrative Resulting Agency Comment Spec In Lab Argelia Mccray APRN CHEMISTRY ORDER AMANDA [facility] [place] [address] documented in this encounter Visit Diagnoses Diagnosis Anxiety Anxiety state, unspecified Depression, unspecified depression type documented in this encounter Care Teams Fingernail Sculpturer Relationship Specialty Start Date End Date Valencia Adhikari APRN [address] [place] [address] PCP - General 04/21/14 07/04/23 documented as of this encounter
--- OUTSIDE RECORDS SUMMARY | 2024-02-21 14:47 | XMS_ITS | Encounter Summary ---
Author Organization [facility] Address [facility] [place] [address] Care Team Providers Care Vice President Supply Chain Name Role Phone Valencia Adhikari APRN Primary Care Provider [phone] Reason for Visit * Reason Onset Date Comments Other 06/07/2017 Encounter Details Date Type Department Care Team (Late st Contact Info) Description 06/07/2017 Telephone Care Management [facility] [place] [phone] Carmina Marshall, CARGO SERVICE AGENT [facility] [place] [address] Other Social History Tobacco Use Types Packs/Day [...] Notes * Telephone Encounter - Carmina Marshall CARGO SERVICE AGENT - 06/07/2017 9:31 AM EST Images from the original note were not included. Pt was scheduled as a [facility] pt work up w/ on 06-05-17. Workers comp insurance is: [employer], DOI: 09-06-16, Employer: [employer]. assessment and tx plan recommendations are [...] with our office on an as-needed basis. [facility] was unable to attend this appt but will facilitate insurance's access to 's 2-20 note and wc form, in an effort to advocate for needed authorization for pain provider's tx recommendations. P: [facility] will be available for f/u intervention PRN. [facility] will request [facility] admin staff fax pain provider's 2-20 office note and wc form to: Jamin brake adjuster, w/ goal to expedite insurance's PA for 's tx plan recommendations.. ?? documented in this encounter Plan of Treatment Upcoming Encounters Date Type Department Care Team (Late st Contact Info) Description 03/03/2024 3:00 PM [place] [address] Linda Diaz MD [facility] [place] [address] 03/03/2024 4:00 PM EST Routine Obstetrics and Gynecology at [place] [phone] Linda Diaz MD [facility] [place] [address] 03/03/2024 4:30 PM EST Scheduled View Only Obstetrics and Gynecology at [place] [phone] 03/12/2024 10:45 AM EST Office Visit Endocrinology at [place] [phone] James Barth DO [facility] [place] [address] 05/23/2024 Hospital Encounter Birthing [place] [phone] Maite Malloy MD [facility] DR [place] [address] documented as of this encounter Visit Diagnoses Not on filedocumented in this encounter Care Teams Vice President Supply Chain Relationship Specialty Start Date End Date Valencia Adhikari APRN [address] [place] [address] PCP - General 04/21/14 07/04/23 documented as of this encounter
--- OUTSIDE RECORDS SUMMARY | 2024-02-21 14:47 | XMS_ITS | Encounter Summary ---
Author Organization [facility] Address [facility] [place] [address] Care Team Providers Care Lease Attendant Name Role Phone Valencia Adhikari APRN Primary Care Provider [phone] Encounter Details Date Type Department Care Team (Latest Contact Info) Description 05/08/2016 1:58 PM EST - 05/08/2016 11:59 PM EST Hospital En[place] [phone] Richard Stallings MD [facility] OBSTETRICS & [place] [address] Acute pelvic pain, female Discharge Disposition: Home [...] 03/03/2024 3:00 PM EST Appointment Radiology at [place] [phone] Linda Diaz MD [facility] [place] [address] 03/03/2024 4:00 PM EST Routine Obstetrics and Gynecology at [place] [phone] Linda Diaz MD [facility] MATERNAL [place] [address] 03/03/2024 4:30 PM EST Scheduled View Only Obstetrics and Gynecology at [place] [phone] 03/12/2024 10:45 AM EST Office Visit Endocrinology at [place] [phone] James Barth DO [facility] [place] [address] 05/23/2024 Hospital Encounter Birthing [place] [phone] Maite Malloy MD [facility] OBSTETRICS [place] [address] documented as of this encounter Procedures Procedure [...] 02:35 pm) PATIENT INFO: ID #: ? [id number] ?: ??[birth year] (25 yrs) Name: ? SORCHA E ? Visit Date: 05/08/2016 02:20 pm ? LOUISE- ? FRANK PERFORMED BY: Performed By: ? Itzel Lezama RDMS Attending: ?Anca LIMA, Phylicia J. Referred By: ?RICHARD STALLINGS MD Location: ? [place] SERVICE(S) PROVIDED: ??UTV - Transvaginal - [id number] ?[id number] ??U3D - ??3D rendering with interpretation - [id number] ? [id number] INDICATIONS: ??pelvic pain with IUD in place [...] 05/08/2016 02:35 pm) PATIENT INFO: ID #: [id number] : [birth year] (25 yrs) Name: PREETHI Godoy Visit Date: 05/08/2016 02:20 pm MARIO MARIE PERFORMED BY: Performed By: Itzel Lezama RDMS Attending: Phylicia March MD Referred By: RICHARD STALLINGS MD Location: [place] SERVICE(S) PROVIDED: UTV - Transvaginal - [id number] U3D - 3D rendering with interpretation - [id number] INDICATIONS: pelvic pain with IUD in place [...] organs documented in this encounter Care Teams Lease Attendant Relationship Specialty Start Date End Date Valencia Adhikari APRN [address] [place] [address] PCP - General 04/21/14 07/04/23 documented as of this encounter
--- OUTSIDE RECORDS SUMMARY | 2024-02-21 14:47 | XMS_ITS | Encounter Summary ---
Author Organization [facility] Address [facility] [place] [address] Care Team Providers Care Component Assembler Name Role Phone Valencia Adhikari APRN Primary Care Provider [phone] Reason for Visit * Consultation (Routine) - Closed Specialty Diagnoses / Procedures Referred By Lamont riggins Referred To Contact Neurology Diagnoses BILATERAL HAND PARESTHESIA Procedures Evaluate and Treat StressJoceline cardoza APRN [address] [place] [address] [facility] [address] [place] [phone] Referral ID Status Reason Start Date Expiration Date V isits Requested Visits Authorized [id number] Closed Consult, Test & Treat [facility] 11/20/2016 11/20/2017 1 1 Encounter Details Date Type Department Care Team (Latest Contact Info) Description 12/01/2016 10:00 AM EDT Procedure [place] [phone] Isaac Osorio MD [facility] [place] [address] Paresthesias in left hand; Paresthesias in right [...] is a single mother and lives in [place], [place]. She denies any neck pain. She [...] 03/03/2024 3:00 PM EST Appointment Radiology at [place] [phone] Linda Diaz MD [facility] [place] [address] 03/03/2024 4:00 PM EST Routine Obstetrics and Gynecology at [place] [phone] Linda Diaz MD [facility] [place]ER[place] [address] 03/03/2024 4:30 PM EST Scheduled View Only Obstetrics [place] [address] 03/12/2024 10:45 AM EST Office Visit Endocrinology at [place] [phone] James Barth DO [facility] [place] [address] 05/23/2024 Hospital Encounter [place] [address] Maite Malloy MD [facility] DR OBSTETRICS [place] [address] documented as of this encounter Visit Diagnoses Diagnosis Paresthesias in left hand Disturbance of skin sensation Paresthesias in right hand Disturbance of skin sensation documented in this encounter Care Teams Component Assembler Relationship Specialty Start Date End Date Valencia Adhikari APRN [address] [place] [address] PCP - General 04/21/14 07/04/23 documented as of this encounter
--- OUTSIDE RECORDS SUMMARY | 2024-02-21 14:47 | XMS_ITS | Encounter Summary ---
Author Organization Formerly [facility] [place] [address] Care Team Providers Care Doctor Of Naprapathy Name Role Phone Valencia Adhikari APRN Primary Care Provider +1 -[phone] Encounter Details Date Type Department Care Team (Late st Contact Info) Description 10/04/2017 9:00 AM EDT Office Visit Psychiatry [place] [address] Argelia Mccray PUBLIC AFFAIRS DIRECTOR [facility] DR PSYCHI[place] [address] Bipolar affective disorder, remission status unspecified; Depression, [...] and normal rhythm ?? Language: fluent in central african ?? Mood: Better ?? Affect: bright and [...] 03/03/2024 3:00 PM EST Appointment [place] [address] Linda Diaz MD [facility] MATERNAL AND [place] [address] 03/03/2024 4:00 PM EST Routine Obstetrics [place] [address] Linda Diaz MD [facility] MATERNAL [place] [address] 03/03/2024 4:30 PM EST Scheduled View Only Obstetrics [place] [address] 03/12/2024 10:45 AM EST Office Visit [place] [address] James Barth DO [facility] ENDOCRINOLOG[place] [address] 05/23/2024 Hospital [place] [address] Maite Malloy MD [facility] DR OBSTETRICS [place] [address] documented as of this encounter Procedures Procedure [...] 10:08 AM EDT) Neutrophil % 71.5 % [facility] Neutrophil Absolute 5.34 1.70 - 6.10 x10(3)/[facility] LABOR[facility] Lymph % 16.6 % [facility] Lymphocytes Abs 1.2 0.9 - 3.2 x10(3)/[facility] LABORATORY Monocyte % 10.2 % [facility] Monocyte Abs 0.8 0.3 - 0.9 x10(3)/[facility] LABORATORY Eos % 0.8 % [facility] Eosinophils Abs 0.1 0.0 - 0.4 x10(3)/[facility] LABORATORY Basophil % 0.5 % [facility] Baso Absolute 0.0 0.0 - 0.1 x10(3)/[facility] LABORATORY Immature Gran % 0.40 % [facility] Comment: Immature granulocytes(IG's)percentage and absolute count will include metamyelocytes, myelocytes, and promyelocytes. Blood smears from CBCs yielding IG's will be scanned manually for concordance. If this scan disagrees with the automated IG or if promyelocytes are noted, a manual differential will be performed. Immature Gran Absolute 0.03 0.00 - 0.04 x10(3)/[facility] LABORATORY Blood specimen (specimen) 10/04/2017 10:08 AM EDT 10/04/2017 10:14 AM EDT Narrative Resulting Agency Comment Spec In Lab Argelia Mccray PUBLIC AFFAIRS DIRECTOR HEMATOLOGY [facility] [place] [address] * (ABNORMAL) Hemogram (10/04/2017 10:08 AM EDT) White Blood Cell 7.5 4.0 - 9.5 x10(3)/[facility] LABORATORY Red Blood Cell 4.03 4.00 - 5.21 x10(6)/[facility]ORATORY Hemoglobin 13.6 11.7 - 15.5 gm/dL [facility] Hematocrit 40.0 35.7 - 45.8 % [facility] Mean Cell Volume 99.3(H) 82.6 - 94.4 fL [facility] Mean Cell Hemoglobin 33.7(H) 27.1 - 32.0 pg [facility] Mean Cell Hemoglobin Concentration 34.0 31.7 - 35.0 gm/dL [facility] Platelet 198 145 - 357 x10(3)/[facility] LABORATORY RDW Standard Deviation 47.5(H) 37.0 - 46.0 [facility]ORY RDW coefficient of variation 12.9 11.5 - 14.1 % [facility] Mean Platelet Volume 11.5 7.6 - 12.9 [facility] NRBC% auto 0.0 % [facility] NRBC Absolute 0.000 0.000 - 0.000 x10(3)/[facility] Blood specimen (specimen) 10/04/2017 10:08 AM EDT 10/04/2017 10:14 AM EDT Narrative Resulting Agency Comment Spec In Lab Argelia Mccray [facility] H[facility]AT[facility] [place] [address] * (ABNORMAL) Comprehensive metabolic panel (non-fasting) (10/04/2017 10:08 AM EDT) Glucose 94 65 - 199 mg/dL [facility] Comment:Diabetes: >=200 mg/d L plus symptoms Blood Urea Nitrogen 7(L) 8 - 18 mg/dL [facility] Creatinine 0.74 0.70 - 1.20 mg/dL [facility] Sodium 142 135 - 145 mmol/L [facility] Potassium 4.2 3.5 - 5.0 mmol/L [facility] Comment: Please note: ??Patients with WBC >100,000 may have falsely elevated Potassium levels. ??For accurate Potassium quantification in these patients send serum separator tube (gold top) for subsequent determinations. ??Contact the Clinical Chemistry Laboratory if there are any questions. Chloride 107 98 - 107 mmol/L [facility] Carbon Dioxide 22 22 - 31 mmol/L [facility] Anion Gap 13 5 - 15 mmol/L [facility] Calcium 9.3 8.5 - 10.5 mg/dL [facility] Protein, Total 6.6 6.1 - 8.0 gm/dL [facility] Albumin 4.2 3.2 - 5.2 gm/dL [facility] Aspartate Aminotransferase 14 0 - 30 unit/L [facility] Alanine Aminotransferase 11 0 - 30 unit/L [facility] Alkaline Phosphatase 67 40 - 104 unit/L [facility] Bilirubin, Total 0.9 0.2 - 1.3 mg/dL [facility] Est Glomerular Filtration Rate 112 >=60 mL/min/1. 73 m?? [facility] Comment: The eGFR was calculated using the CKD-EPI equation. As with all creatinine based estimates of kidney function, eGFR values calculated with the CKD-EPI equation are not accurate in patients with acute kidney failure, extremes of body mass or the acutely ill. http://[employer]snkdep http://[employer]/Amulet PharmaceuticalsMCnkf eGFR 130 >=60 mL/min/1. 73 m?? [facility] Comment: The eGFR was calculated using the CKD-EPI equation. As with all creatinine based estimates of kidney function, eGFR values calculated with the CKD-EPI equation are not accurate in patients with acute kidney failure, extremes of body mass or the acutely ill. http://[employer]kdep http://[employer]way[employer]nkf Blood specimen (specimen) 10/04/2017 10:08 AM EDT 10/04/2017 10:14 AM EDT Narrative Resulting Agency Comment Spec In Lab Argelia Mccray APRN CHEMISTRY ORDER AMANDA [facility] [place] [address] * (ABNORMAL) Lamotrigine Lvl (10/04/2017 10:08 AM EDT) Lamotrigine Lvl (AUGUST) 1.4(L) 2.5 - 15.0 mcg/mL [facility] Comment: ADDITIONAL INFORMATION This test was developed and its performance characteristics determined by [facility] in a manner consistent with CLIA requirements. This test has not been cleared or approved by the U.S. Food and Drug Administration. Test Performed by: [facility] - [facility] [address] [place] [address] Blood specimen (specimen) 10/04/2017 10:08 AM EDT 10/04/2017 11:55 AM EDT Narrative Resulting Agency Comment Spec In Lab Argelia Mccray APRN LAB SEND OUT OR DERABLES Performing Organization Address City/[facility]/ZIP Co de Phone Number [facility] [place] [address] * TSH (10/04/2017 10:08 AM EDT) Thyroid Stimulating Hormone 0.90 0.27 - 4.20 mlU/ML [facility] Blood specimen (specimen) 10/04/2017 10:08 AM EDT 10/04/2017 10:14 AM EDT Narrative Resulting Agency Comment Spec In Lab Argelia Mccray APRN CHEMISTRY ORDER AMANDA Performing Organization Address [facility]/[place] [address] * Thyroglobulin Antibody (10/04/2017 10:08 AM EDT) Thyroglob Ab <20.0 0.0 - 40.0 IU/mL [facility] Blood specimen (specimen) 10/04/2017 10:08 AM EDT 10/04/2017 1:15 PM EDT Narrative Resulting Agency Comment Spec In Lab Argelia Mccray APRN LAB SEND OUT OR DERABLES Performing Organization Address [facility] [place] [address] * (ABNORMAL) T4, free (10/04/2017 10:08 AM EDT) Free T4 1.74(H) 0.93 - 1.70 ng/dL [facility] Blood specimen (specimen) 10/04/2017 10:08 AM EDT 10/04/2017 10:14 AM EDT Narrative Resulting Agency Comment Spec In Lab Argelia Mccray APRN CHEMISTRY ORDER AMANDA Performing Organization Address City/[facility]/ZIP Co de Phone Number [facility] [place] [address] * T4 Total (10/04/2017 10:08 AM EDT) T4 Total 8.5 5.1 - 10.8 mcg/dL [facility] Comment: Reference Range: Cord Blood: ??6.9-14.4 mcg/dL Females: ??7.2-14.2 mcg/dL Pediatric ranges: ??Interpret with caution-ranges have not been verified Blood specimen (specimen) 10/04/2017 10:08 AM EDT 10/04/2017 10:14 AM EDT Narrative Resulting Agency Comment Spec In Lab Argelia Mccray PUBLIC AFFAIRS DIRECTOR CHEMISTRY ORDER AMANDA [facility] [place] [address] * T3, free (10/04/2017 10:08 AM EDT) Free T3 3.8 2.0 - 4.4 pg/mL [facility] Blood specimen (specimen) 10/04/2017 10:08 AM EDT 10/04/2017 10:14 AM EDT Narrative Resulting Agency Comment Spec In Lab Argelia Mccray PUBLIC AFFAIRS DIRECTOR CHEMISTRY ORDER AMANDA [facility] [place] [address] documented in this encounter Visit Diagnoses Diagnosis Bipolar affective disorder, remission status unspecified Depression, unspecified depression type Anxiety Anxiety state, unspecified documented in this encounter Care Teams Doctor Of Naprapathy Relationship Specialty Start Date End Date Valencia Adhikari APRN [address] [place] [address] PCP - General 04/21/14 07/04/23 documented as of this encounter
--- OUTSIDE RECORDS SUMMARY | 2024-02-21 14:47 | XMS_ITS | Encounter Summary ---
Author Organization [facility] Address [facility] [place] [address] Care Team Providers Care Family Day Care Provider Name Role Phone Valencia Adhiakri APRN Primary Care Provider +1 [phone] Encounter Details Date Type Department Care Team (Latest Contact Info) Description 10/23/2016 - 10/23/2016 11:59 PM EDT Hospital Encounter [facility] [place] [phone] Kedar Santos MD [facility] [place] [address] Discharge Disposition: Home Social History Tobacco Use [...] 03/03/2024 3:00 PM EST Appointment Radiology at [place] [phone] Linda Diaz MD [facility] [place] [address] 03/03/2024 4:00 PM EST Routine Obstetrics and Gynecology at [place] [phone] Linda Diaz MD [facility] [place] [address] 03/03/2024 4:30 PM EST Scheduled View Only Obstetrics and Gynecology at [place] [phone] 03/12/2024 10:45 AM EST Office Visit Endocrinology at [place] [phone] James Barth DO [facility] [place] [address] 05/23/2024 Hospital [place] [address] Maite Malloy MD [facility] [place] [address] documented as of this encounter Procedures Procedure Name Priority Date/Time Associated Diagnosis Comments FILM LIBRARY STORAGE ONLY MR SHOULDER Routine 10/23/2016 12:00 AM EDT documented in this encounter Results * Film Library- Storage Only MR Shoulder (10/23/2016 12:00 AM EDT) Narrative RUDY - 05/17/2017 11:16 AM EST This exam is for storage only and is auto-finalizing. Kedar Santos MD [facility] FILM LIBRARY ORD ERABLES Performing Organization Address City/State/[facility] Co de Phone Number [place], [place] documented in this encounter Visit Diagnoses Not on filedocumented in this encounter Care Teams Family Day Care Provider Relationship Specialty Start Date End Date Valencia Adhikari APRN [address] [place] [address] PCP - General 04/21/14 07/04/23 documented as of this encounter
--- OUTSIDE RECORDS SUMMARY | 2024-02-21 14:47 | XMS_ITS | Encounter Summary ---
Author Organization [facility] Address [facility] [place] [address] Care Team Providers Care Repairer Resistance Welding Machines Name Role Phone Valencia Adhikari APRN Primary Care Provider +1 -[phone] Encounter Details Date Type Department Care Team (Late st Contact Info) Description 08/09/2017 Telephone Psychiatry and [place] [address] Argelia Mccray APRN [facility] [place] [address] Social History Tobacco Use Types Packs/Day Years [...] 03/03/2024 3:00 PM EST Appointment [place] [address] Linda Diaz MD [facility] [place] [address] 03/03/2024 4:00 PM EST Routine Obstetrics and Gynecology at [place] [phone] Linda Diaz MD [facility] MATERNAL [place] [address] 03/03/2024 4:30 PM EST Scheduled View Only Obstetrics and Gynecology at [place] [address] 03/12/2024 10:45 AM EST Office Visit Endocrinology at [place] [address] James Barth DO [facility] [place] [address] 05/23/2024 [place] [address] Maite Malloy MD [facility] DR [place] [address] documented as of this encounter Visit Diagnoses Not on filedocumented in this encounter Care Teams Repairer Resistance Welding Machines Relationship Specialty Start Date End Date Valencia Adhikari APRN [address] [place] [address] PCP - General 04/21/14 07/04/23 documented as of this encounter
--- OUTSIDE RECORDS SUMMARY | 2024-02-21 14:47 | XMS_ITS | Encounter Summary ---
Author Organization [facility] Address [facility] [place] [address] Care Team Providers Care Public Records Officer Name Role Phone Valencia Adhikari APRN Primary Care Provider +1 -[phone] Reason for Visit * Reason Comments Left Shoulder Pain workers comp DOI Encounter Details Date Type Department Care Team (Late st Contact Info) Description 04/03/2017 9:30 AM EST Office [place] [address] Kedar Santos MD [facility] DR ORTHOPAEDIC [place] [address] Chronic left shoulder pain Social History Tobacco [...] 03/03/2024 3:00 PM EST Appointment Radiology at [address] Linda Diaz MD [facility] [place] [address] 03/03/2024 4:00 PM EST Routine Obstetrics [place] [address] Linda Diaz MD [facility] MATERNAL [place] [address] 03/03/2024 4:30 PM EST Scheduled View Only Obstetrics and Gynecology at [address] 03/12/2024 10:45 AM EST Office Visit Endocrinology at [address]1000 James Barth DO [facility] ENDOCRINOLOG[place] [address] 05/23/2024 Hospital Encounter Birthing [place] [phone] Maite Malloy MD [facility] DR OBSTETRICS [place] [address] documented as of this encounter Visit Diagnoses Diagnosis Chronic left shoulder pain Pain in joint, shoulder region documented in this encounter Care Teams Public Records Officer Relationship Specialty Start Date End Date Valencia Adhikari APRN [address] [place] [address] PCP - General 04/21/14 07/04/23 documented as of this encounter
--- OUTSIDE RECORDS SUMMARY | 2024-02-21 14:47 | XMS_ITS | Encounter Summary ---
Author Organization [facility] [place] [address] Care Team Providers Care Awning Craftsman Name Role Phone Valencia Adhikari APRN Primary Care Provider +1 -[phone] Reason for Visit * Reason Onset Date Comments Other 02/15/2017 Encounter Details Date Type Department Care Team (Late st Contact Info) Description 02/15/2017 [place] [phone] Isaac Osorio MD [facility] [place] [address] Other Social History Tobacco Use Types Packs/Day [...] as she has not heard from Dr. Oosrio. Please call to discuss. * Telephone Encounter - Jeanette Doss - 02/15/2017 12:46 PM EDT Caller: Joceline If not Pt / Relation to pt: [facility] Best time to reach caller: Anytime at Dr Osorio's convenience Before 2:30pm - Informed caller that nurse will call back by the end of the day Best number to reach caller: [phone] Reason for call: Joceline from [facility] called. She would like to speak with Dr Osorioregarding the MRI patient had done [facility] on 02/09/2017 documented in this encounter Plan of Treatment Upcoming Encounters Date Type Department Care Team (Late st Contact Info) Description 03/03/2024 3:00 PM EST Appointment Radiology at [place] [phone] Linda Diaz MD [facility] [place] [address] 03/03/2024 4:00 PM EST Routine Obstetrics [place] [phone] Linda Diaz MD [facility] [place] [address] 03/03/2024 4:30 PM EST Scheduled View Only Obstetrics [place] [address] 03/12/2024 10:45 AM EST Office [place] [address] James Barth DO [facility] [place] [address] 05/23/2024 Hospital [place] [address] Maite Malloy MD [facility] OBSTETRICS [place] [address] documented as of this encounter Visit Diagnoses Not on filedocumented in this encounter Care Teams Awning Craftsman Relationship Specialty Start Date End Date Valencia Adhikari APRN [address] [place] [address] PCP - General 04/21/14 07/04/23 documented as of this encounter
--- OUTSIDE RECORDS SUMMARY | 2024-02-21 14:47 | XMS_ITS | Encounter Summary ---
Author Organization [facility] Address [facility] [place] [address] Care Team Providers Care Tow Motor Driver Name Role Phone Valencia Adhikari APRN Primary Care Provider +1 -[phone] Reason for Visit * Reason Onset Date Comments Questions 05/17/2017 Encounter Details Date Type Department Care Team (Late Contact Info) Description 05/17/2017 Telephone [place] [phone] Kedar Santos MD [facility] [place] [address] Questions Social History Tobacco Use Types Packs/Day [...] the patient who advised the images from [facility] ( MRI and XR ) [place] [facility] [place] documented in this encounter Plan of Treatment Upcoming Encounters Date Type Department Care Team (Late st Contact Info) Description 03/03/2024 3:00 PM EST Appointment Radiology at [address]1000 Linda Diaz MD [facility] [place] [address] 03/03/2024 4:00 PM EST Routine Obstetrics [place] [address] Linda Diaz MD [facility] [place] [address] 03/03/2024 4:30 PM EST Scheduled View Only Obstetrics and Gynecology at [address] 03/12/2024 10:45 AM EST Office Visit Endocrinology at [place] [address] James Barth DO [facility] [place] [address] 05/23/2024 Hospital [place] [address] Maite Malloy MD [facility] DR [place]STET[place] [address] documented as of this encounter Visit Diagnoses Not on filedocumented in this encounter Care Teams Tow Motor Driver Relationship Specialty Start Date End Date Valencia Adhikari APRN [address] [place] [address] PCP - General 04/21/14 07/04/23 documented as of this encounter
--- OUTSIDE RECORDS SUMMARY | 2024-02-21 14:47 | XMS_ITS | Encounter Summary ---
Author Organization [facility] Address [facility] [place] [address] Care Team Providers Care Core Drilling Supervisor Name Role Phone Valencia Adhikari APRN Primary Care Provider +1 -[phone] Reason for Visit * Reason Comments Follow-up left shoulder pain Encounter Details Date Type Department Care Team (Late st Contact Info) Description 07/13/2017 1:00 PM EDT Office [place] [phone] Meliton Larkin PA [facility] [place] [address] Chronic left shoulder pain Social History Tobacco [...] 03/03/2024 3:00 PM EST Appointment [place] [address] Linda Diaz MD [facility] [place] [address] 03/03/2024 4:00 PM EST Routine Obstetrics and Gynecology at [place] [phone] Linda Diaz MD [facility] [place] [address] 03/03/2024 4:30 PM EST Scheduled View Only Obstetrics and Gynecology at [place] [phone] 03/12/2024 10:45 AM EST Office Visit Endocrinology at [address]1000 James Barth DO [facility] [place] [address] 05/23/2024 Hospital Encounter Birthing [place] [phone] Maite Malloy MD [facility] DR OBSTETRICS [place] [address] documented as of this encounter Visit Diagnoses Diagnosis Chronic left shoulder pain Pain in joint, shoulder region documented in this encounter Care Teams Core Drilling Supervisor Relationship Specialty Start Date End Date Valencia Adhikari APRN [address] [place] [address] PCP - General 04/21/14 07/04/23 documented as of this encounter
--- OUTSIDE RECORDS SUMMARY | 2024-02-21 14:47 | XMS_ITS | Encounter Summary ---
Author Organization [facility] [place] [address] Care Team Providers Care Detective Bureau Chief Name Role Phone OnofreMarilynValenciaadan Barton APRN Primary Care Provider +1 -[phone] Encounter Details Date Type Department Care Team (Late st Contact Info) Description 08/09/2017 Orders Only Psychiatry [place] [address] Argelia Mccray APRN [facility] DR [place] [address] Depression, unspecified depression type Social History Tobacco [...] 03/03/2024 3:00 PM EST [place] [address] Linda Diaz MD [facility] MATERNAL [place] [address] 03/03/2024 4:00 PM EST Routine Obstetrics and Gynecology at [place] [phone] Linda Diaz MD [facility] [place] [address] 03/03/2024 4:30 PM EST Scheduled View Only Obstetrics and Gynecology at [address]1000 03/12/2024 10:45 AM EST Office Visit Endocrinology at [place] [address] James Barth DO [facility] [place] [address] 05/23/2024 Hospital Encounter Birthing [place] [phone] Maite Malloy MD [facility] [place] [address] documented as of this encounter Visit Diagnoses Diagnosis Depression, unspecified depression type documented in this encounter Care Teams Detective Bureau Chief Relationship Specialty Start Date End Date Valencia Adhikari APRN [address] [place] [address] PCP - General 04/21/14 07/04/23 documented as of this encounter
--- OUTSIDE RECORDS SUMMARY | 2024-02-21 14:47 | XMS_ITS | Encounter Summary ---
Author Organization [facility] [place] [address] Care Team Providers Care Sweeper Cleaner Industrial Name Role Phone Valencia Adhikari APRN Primary Care Provider [phone] [phone] Reason for Referral * Consultation (Routine) - Closed Specialty Diagnoses / Procedures Referred By Lamont t Referred To Contact Pain Management Diagnoses Chronic left shoulder pain Kedar Santos MD [facility] [place] [address] [facility] [address] [place] [address] Referral ID Status Reason Start Date Expiration Date V isits Requested Visits Authorized [id number] Closed Consult, Test & Treat 05/15/2017 05/15/2018 1 1 Reason for Visit * Reason Comments Left Shoulder Pain DOI 09/06/2016 W/C Encounter Details Date Type Department Care Team (Late st Contact Info) Description 05/15/2017 11:30 AM EST Office [place] [phone] Kedar Santos MD [facility] ORTHOPAEDIC SURGERY [place], [place] [id number] Chronic left shoulder pain Social History Tobacco [...] available for review but was done at [facility] and was reportedly negative. Next [...] 03/03/2024 3:00 PM EST Appointment Radiology at [place] [phone] Linda Diaz MD [facility] [place] [address] 03/03/2024 4:00 PM EST Routine Obstetrics and Gynecology at [address] Linda Diaz MD [facility] [place] [address] 03/03/2024 4:30 PM EST Scheduled View Only Obstetrics and Gynecology at [place] [phone] 03/12/2024 10:45 AM EST Office Visit Endocrinology at [address] James Barth DO [facility] [place] [address] 05/23/2024 Hospital Encounter Birthing [place] [phone] Maite Malloy MD [facility] [place] [address] Scheduled Referrals Name Type Priority Associated Diagnoses Orde r Schedule Referral to Pain Clinic Outpatient Referral Routine Chronic left shoulder pain Ordered: 05/15/2017 documented as of this encounter Visit Diagnoses Diagnosis Chronic left shoulder pain Pain in joint, shoulder region documented in this encounter Care Teams Sweeper Cleaner Industrial Relationship Specialty Start Date End Date Valencia Adhikari APRN [address] [place] [address] PCP - General 04/21/14 07/04/23 documented as of this encounter
--- OUTSIDE RECORDS SUMMARY | 2024-02-21 14:47 | XMS_ITS | Encounter Summary ---
Author Organization [facility] [place] [address] Care Team Providers Care Albacore Fishing Boat Crewman Name Role Phone OnofreMarilynValencia Oralia SLADE Primary Care Provider [phone] [phone] Encounter Details Date Type Department Care Team (Late st Contact Info) Description 08/24/2017 Orders Only Psychiatry [place] [phone] Argelia Mccray APRN [facility] [place] [address] Depression, unspecified depression type Social History Tobacco [...] 03/03/2024 3:00 PM [place] [address] Linda Diaz MD [facility] [place] [address] 03/03/2024 4:00 PM EST Routine Obstetrics and Gynecology at [place] [phone] Linda Diaz MD [facility] DR [place]NAL [place] [address] 03/03/2024 4:30 PM EST Scheduled View Only Obstetrics and Gynecology at [address] 03/12/2024 10:45 AM EST Office Visit Endocrinology at [place] [address] James Barth DO [facility] [place] [address] 05/23/2024 Hospital Encounter Birthing [place] [phone] Maite Malloy MD [facility] DR OBSTETRICS [place] [address] documented as of this encounter Visit Diagnoses Diagnosis Depression, unspecified depression type documented in this encounter Care Teams Albacore Fishing Boat Crewman Relationship Specialty Start Date End Date Valencia Adhikari APRN [address] [place] [address] PCP - General 04/21/14 07/04/23 documented as of this encounter
--- OUTSIDE RECORDS SUMMARY | 2024-02-21 14:47 | XMS_ITS | Encounter Summary ---
[place] [address] Care Team Providers Care Medical Screener Name Role Phone Valencia Adhikari APRN Primary Care Provider [phone] [phone] Reason for Referral * Surgical (Routine) - Specialty Diagnoses / Procedures Referred By Contac t Referred To Contact Diagnoses Chronic left shoulder pain Procedures Injection tendon or ligament Kiah Alvarez V [facility] [place] [address] Referral ID Status Reason Start Date Expiration Date V isits Requested Visits Authorized [id number] Consult, Test & Treat 07/05/2017 07/05/2018 1 1 * Surgical (Routine) - Specialty Diagnoses / Procedures Referred By Contac t Referred To Contact Diagnoses Biceps tendinitis, left Procedures Bursa Inject - Major (Shoulder,hip,knee) Kiah Alvarez [facility] [address] Referral ID Status Reason Start Date Expiration Date V isits Requested Visits Authorized [id number] Consult, Test & Treat 07/05/2017 07/05/2018 1 [...] 1 Valencia Adhikari APRN [address] [place] [address] Kiah Alvarez V [facility] [place] [address] Referral ID Status Reason Start Date Expiration Date V isits Requested Visits Authorized [id number] 07/05/2017 07/05/2018 1 1 Encounter Details Date Type Department Care Team (Latest Contact Info) Description 07/05/2017 8:30 AM EDT Procedure visit [place] [address] Kiah Alvarez V [facility] [address] Chronic left shoulder pain; Biceps tendinitis, left [...] No 2. 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 Yes 3. [...] MONITORING, SETUP performed by JUAN ESPARZA at [facility] MAIN OR ??? PRO THYROIDECTOMY, IVA [place] NECK SURG 03/22/2011 THYROIDECTOMY, FOR MALIGNANCY, LIMITED NECK DISSECTION performed by JUAN ESPARZA at [facility] MAIN OR ??? TONSILLECTOMY 2010 [...] Years of education: 17 Occupational History ??? [employer] Social History Main Topics ??? Smoking status: [...] any questions. Sincerely, KIAH ALVAREZ DO, MPH Serology Technician of Anesthesiology/[facility] [employer] at [facility] Trucking Contractor, Pain Medicine Fellowship ABPM&R - Subspecialty board [...] Kiah Alvarez DO, MPH Attending Physician CC: Vaelncia Adhikari APRN [address] [place] [address] documented in this encounter Procedure Notes * [...] the entire procedure. KIAH ALVAREZ DO, MPH Serology Technician of Anesthesiology/[facility] at [facility] Trucking Contractor, Pain Medicine Fellowship ABPM&R - Subspecialty board certification in Pain Medicine CC: Valencia Adhikari APRN [address] [place] [address] documented in this encounter Plan of Treatment Upcoming Encounters Date Type Department Care Team (Late st Contact Info) Description 03/03/2024 3:00 PM EST Appointment [place] [address] Linda Diaz MD [facility] [place] [address] 03/03/2024 4:00 PM EST Routine Obstetrics [place] [phone] Linda Diaz MD [facility] [place] [address] 03/03/2024 4:30 PM EST Scheduled View Only Obstetrics [place] [phone] 03/12/2024 10:45 AM EST Office Visit [place] [phone] James Barth DO [facility] [place] [address] 05/23/2024 Hospital Encounter [place] [address] Maite Malloy MD [facility] OBSTETRICS [place] [address] Scheduled Orders Name Type Priority Associated Diagnoses [...] 07/05/2017 10:07 AM EDT Kiah Alvarez V, ? 07/05/2017 10:07 AM ULTRASOUND-GUIDED left LONG [...] the entire procedure. KIAH ALVAREZ DO, MPH Serology Technician of Anesthesiology/[facility] at [facility] Trucking Contractor, Pain Medicine Fellowship ABPM&R - Subspecialty board certification in Pain Medicine CC: Valencia Adhikari APRN [address] [place] [address] Kiah Jimenez DO PROCEDURE/MINOR SURG ICAL ORDERABLES [...] mg documented in this encounter Care Teams Medical Screener Relationship Specialty Start Date End Date Valencia Adhikari APRN [address] [place] [address] PCP - General 04/21/14 07/04/23 documented as of this encounter
--- OUTSIDE RECORDS SUMMARY | 2024-02-21 14:47 | XMS_ITS | Encounter Summary ---
Author Organization [facility] [place] [address] Care Team Providers Care Bushel Girl Name Role Phone OnofreMarilynValencia Oralia SLADE Primary Care Provider +1 [phone] Encounter Details Date Type Department Care Team (Late st Contact Info) Description 09/05/2017 Orders Only Psychiatry [place] [phone] Argelia Mccray APRN [facility] [place] [address] Depression, unspecified depression type Social History Tobacco [...] 03/03/2024 3:00 PM EST Appointment [place] [phone] Linda Diaz MD [facility] [place] [address] 03/03/2024 4:00 PM EST Routine Obstetrics and Gynecology at [place] [phone] Linda Diaz MD [facility] [place] [address] 03/03/2024 4:30 PM EST Scheduled View Only Obstetrics and Gynecology at [address] 03/12/2024 10:45 AM EST Office Visit Endocrinology at [place] [address] James Barth DO [facility] [place] [address] 05/23/2024 Hospital Encounter Birthing [place] [phone] Maite Malloy MD [facility] DR OBSTETRICS [place] [address] documented as of this encounter Visit Diagnoses Diagnosis Depression, unspecified depression type documented in this encounter Care Teams Bushel Girl Relationship Specialty Start Date End Date Valencia Adhikari APRN [address] [place] [address] PCP - General 04/21/14 07/04/23 documented as of this encounter
--- OUTSIDE RECORDS SUMMARY | 2024-02-21 14:47 | XMS_ITS | Encounter Summary ---
Author Organization [facility] Address [facility] [place] [address] Care Team Providers Care Linux Server Engineer Name Role Phone Valencia Adhikari APRN Primary Care Provider [phone] [phone] Reason for Visit * Reason Comments Left Shoulder Pain DOI 09/06/16 * Consultation (Routine) - Closed Specialty Diagnoses / Procedures Referred By Contwillow t Referred To Contact Orthopaedics Diagnoses left shoulder pain Valencia Adhikari APRN [address] [place] [address] [facility] Orthopaedics [address] [place] [phone] Referral ID Status Reason Start Date Expiration Date V isits Requested Visits Authorized [id number] Closed Consult, Test & Treat [facility] 01/17/2017 01/17/2018 1 1 Encounter Details Date Type Department Care Team (Late st Contact Info) Description 02/06/2017 9:00 AM EDT Office [place] [phone] Kedar Santos MD [facility] [place] [address] Left shoulder pain, unspecified chronicity [...] complaint. HPI: The patient is a 26-year-old [id number]-cedpytbj female who comes in today complaining of [...] dementia carefacility. Pain is not relieved by oatk-pjt-wberkws anti- inflammatory medications. No other prior injuries. [...] MONITORING, SETUP performed by JUAN ESPARZA at [facility] OR ??? PRO THYROIDECTOMY, NYDIA, LTD NECK SURG 03/22/2011 THYROIDECTOMY, FOR MALIGNANCY, LIMITED NECK DISSECTION performed by JUAN ESPARZA at [facility] OR ??? TONSILLECTOMY 2010 ??? UPPER GASTROINTESTINAL ENDOSCOPY for IBS, celiac excluded ??? WISDOM TOOTH EXTRACTION Medications were reviewed with the patient today and are up to date. Family History: Negative for bleeding problems, blood clotting disorders, or problems with anesthesia. Social History: Denies tobacco use, denies alcohol use except occasionally. 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 Imaging studies: MRI [...] Kedar Santos MD [facility] Orth[facility] Pager: [phone] documented in this encounter Plan of Treatment Upcoming Encounters Date Type Department Care Team (Late st Contact Info) Description 03/03/2024 3:00 PM EST [place] [address] Linda Diaz MD [facility] [place] [address] 03/03/2024 4:00 PM EST Routine Obstetrics [place] [address]-1000 Linda Diaz MD [facility] [place] [address] 03/03/2024 4:30 PM EST Scheduled View Only Obstetrics [place] [address] 03/12/2024 10:45 AM EST Office [place] [address] James Barth DO [facility] [place] [address] 05/23/2024 Hospital [place] [phone] Maite Malloy MD [facility] DR OBST[place] [address] documented as of this encounter Results * XR Fluoro Guided Joint Injection Large Left (03/20/2017 3:21 PM EST) Anatomical Region Laterality Modality Left Radio Fluoroscop y Impressions 03/20/2017 4:16 PM EST Uneventful left glenohumeral injection under fluoroscopy. Resident/Fellow: None Attending: Dr. Sloane TOLEDO Procedure performed by Sally Joya APRN Narrative 03/20/2017 4:16 PM EST HISTORY: Left shoulder pain, inject for diagnostic/therapeutic purposes. LEFT SHOULDER JOINT INJECTION UNDER FLUOROSCOPY TECHNIQUE: After an extensive conversation with the patient regarding risks and benefits, oral and written consent were obtained. ??A pre- procedural time-out was performed as per [facility] protocol. The patient was placed supine on [...] space. 2. ??PAIN SCORE: ??Before: 9-10/10 ??After: 9-1010 3. Fluoroscopy time: 0.10 minutes 4. Medications: [...] A pre- proceduraltime-out was performed as per [facility] protocol. The patient was placed supine on [...] under fluoroscopy. Resident/Fellow: None Attending: Dr. Sloane TOLEDO Procedure performed by Sally Joya APRN Kedar Santos MD IMG FLUORO ORDERABLE S * US Guided Tendon Sheath Injection Left (03/20/2017 3:21 PM EST) Anatomical Region Laterality Modality Left Radio Fluoroscop y Impressions 03/20/2017 4:01 PM EST Uneventful left long head the biceps tendon sheath joint injection under sonographic guidance. Resident/ Fellow: None. Attending: Sloane TOLEDO M.D. I performed this procedure. Narrative 03/20/2017 4:01 PM EST HISTORY: Left shoulder pain. LEFT LONG HEAD OF THE BICEPS TENDON SHEATH INJECTION UNDER SONOGRAPHIC GUIDANCE TECHNIQUE: After an extensive conversation with the patient regarding risks and benefits, oral and written consent were obtained. ??A pre- procedural time-out was performed as per [facility] protocol. The patient was placed supine on [...] biceps tendon sheath. 2. ??PAIN SCORE: ??Before: 10 ??After: ??12/24 3. Medications: ??Lidocaine 1% - [...] were reviewed with patient. Procedure Note Sloane Toledo MD - 03/20/2017 HISTORY: Left shoulder pain. LEFT LONG HEAD OF THE BICEPS TENDON SHEATH INJECTION UNDER SONOGRAPHICGUIDANCE TECHNIQUE: After an extensive conversation with the patient regarding risks andbenefits, oral and written consent were obtained. A pre- procedural time-out was performed as per [facility] protocol. The patient was placed supine on [...] sonographic guidance. Resident/ Fellow: None. Attending: Sloane TOLEDO M.D. I performed this procedure. Kedar Santos MD [facility] PROC ORDERABL ES documented in this encounter Visit Diagnoses Diagnosis Left shoulder pain, unspecified chronicity Left shoulder pain, unspecified chronicity documented in this encounter Care Teams Linux Server Engineer Relationship Specialty Start Date End Date Valecnia Adhikari APRN [address] [place] [address] PCP - General 04/21/14 07/04/23 documented as of this encounter
--- OUTSIDE RECORDS SUMMARY | 2024-02-21 14:47 | XMS_ITS | Encounter Summary ---
Author [facility] Address [facility] [place] [address] Care Team Providers Care Hardware Supplies Sales Representative Name Role Phone OnofreMarilyn pittshryn Oralia SLADE Primary Care Provider [phone] [phone] Encounter Details Date Type Department Care Team (Late st Contact Info) Description 12/01/2016 External [place] [address] Isaac Osorio MD [facility] [place] [address] Social History Tobacco Use Types Packs/Day Years [...] 03/03/2024 3:00 PM [place] [address] Linda Diaz MD [facility] [place] [address] 03/03/2024 4:00 PM EST Routine Obstetrics [place] [address] Linda Diaz MD [facility] [place] [address] 03/03/2024 4:30 PM EST Scheduled View Only Obstetrics [place] [address] 03/12/2024 10:45 AM EST Office [place] [address] James Barth DO [facility] [place] [address] 05/23/2024 Hospital [place] [address] Maite Malloy MD [facility] DR OBSTETRICS [place] [address] documented as of this encounter Procedures Procedure Name Priority Date/Time Associated Diagnosis Comments EMG SCAN Routine 12/01/2016 documented in this encounter Results * Scan Doc: EMG (12/01/2016) Isaac Osorio MD MEDIA MGR SCAN EXT O RDR/RSLT documented in this encounter Visit Diagnoses Not on filedocumented in this encounter Care Teams Hardware Supplies Sales Representative Relationship Specialty Start Date End Date Valencia Adhikari APRN [address] [place] [address] PCP - General 04/21/14 07/04/23 documented as of this encounter
--- OUTSIDE RECORDS SUMMARY | 2024-02-21 14:47 | XMS_ITS | Encounter Summary ---
Author Organization [facility] [place] [address] Care Team Providers Care Funeral Counselor Name Role Phone Valencia Adhikari APRN Primary Care Provider [phone] [phone] Reason for Visit * Reason Comments Bipolar Disorder Depression Anxiety Encounter Details Date Type Department Care Team (Late st Contact Info) Description 08/16/2017 11:00 AM EDT Office Visit Psychiatry [place] [address] Argelia Mccray APRN [facility] [place] [address] Bipolar affective disorder, remission status unspecified; Anxiety [...] in this encounter Progress Notes * MichaeldelilahArgelia, QA DEVELOPER - 08/16/2017 11:00 AM EDT ESTABLISHED ADULT [...] expresses her fear that her son will sleeve turner like his biological father, who has [...] 03/03/2024 3:00 PM EST Appointment Radiology at [address]1000 Linda Diaz MD [facility] [address] [place] [address] 03/03/2024 4:00 PM EST Routine Obstetrics and Gynecology at [address]1000 Linda Diaz MD [facility] [place] [address] 03/03/2024 4:30 PM EST Scheduled View Only Obstetrics and Gynecology at [place] [phone] 03/12/2024 10:45 AM EST Office Visit Endocrinology at [address]1000 James Barth DO [facility] [place] [address] 05/23/2024 Hospital Encounter Birthing [place] [phone] Maite Malloy MD [facility] OBSTETRICS [place] [address] documented as of this encounter Visit Diagnoses Diagnosis Bipolar affective disorder, remission status unspecified Anxiety Anxiety state, unspecified documented in this encounter Care Teams Funeral Counselor Relationship Specialty Start Date End Date Valencia Adhikari APRN [address] [place] [address] PCP - General 04/21/14 07/04/23 documented as of this encounter
--- OUTSIDE RECORDS SUMMARY | 2024-02-21 14:47 | XMS_ITS | Encounter Summary ---
Author Organization [facility] Address [facility] [place] [address] Care Team Providers Care Cartography Professor Name Role Phone Valencia Adhikari APRN Primary Care Provider [phone] [phone] Reason for Referral * Physical Therapy (Routine) - Specialty Diagnoses / Procedures Referred By Lamont riggins Referred To Contact Diagnoses Left shoulder pain, unspecified chronicity Kedar Santos MD [facility] DR [place] [address] Referral ID Status Reason Start Date Expiration Date V isits Requested Visits Authorized [id number] Evaluate and Treat 02/27/2017 08/26/2017 12 12 Encounter Details Date Type Department Care Team (Late st Contact Info) Description 02/27/2017 [place]phone [place] [address] Lexii Martinez, RN Social History Tobacco Use [...] from Dr. Santos. PT order faxed to [place], [place], , the PT office of patient's choice.Message out to schedulers to reach out and schedule the injections. Patient encouraged to call the clinicif any questions/ concerns arise. documented in this encounter Plan of Treatment Upcoming Encounters Date Type Department Care Team (Late st Contact Info) Description 03/03/2024 3:00 PM [place] [address] Linda Diaz MD [facility] MATERNAL [place] [address] 03/03/2024 4:00 PM EST Routine Obstetrics [place] [address] Linda Diaz MD [facility] MATERNAL [place] [address] 03/03/2024 4:30 PM EST Scheduled View Only Obstetrics [place] [phone] 03/12/2024 10:45 AM EST Office [place] [address] James Barth DO [facility] [place] [address] 05/23/2024 [place] [address] Maite Malloy MD [facility] OBSTETRICS [place] [address] Scheduled Referrals Name Type Priority Associated Diagnoses Orde r Schedule Referral to Physical Therapy Outpatient Referral Routine Left Shoulder Pain, Unspecified Chronicity Ordered: 02/27/2017 documented as of this encounter Visit Diagnoses Diagnosis Left shoulder pain, unspecified chronicity documented in this encounter Care Teams Cartography Professor Relationship Specialty Start Date End Date Valencia Adhikari APRN [address] [place] [address] PCP - General 04/21/14 07/04/23 documented as of this encounter
--- OUTSIDE RECORDS SUMMARY | 2024-02-21 14:47 | XMS_ITS | Encounter Summary ---
Author Organization [facility] Address [facility] [place] [address] Care Team Providers Care Multi Line Claims Adjuster Name Role Phone Valencia Adhikari APRN Primary Care Provider +1 [phone] Reason for Visit * Reason Comments Vaginitis Follow-up Encounter Details Date Type Department Care Team (Late st Contact Info) Description 05/08/2016 1:00 PM EST Office Visit Obstetrics [place] [phone] Valencia Bourne [facility] OBSTETRICS [place] [address] Acute pelvic pain, female (Primary Dx) Social [...] 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, and doesn't know if she felt them [...] 03/03/2024 3:00 PM EST Appointment [place] [address] Linda Diaz MD [facility] [place] [address] 03/03/2024 4:00 PM EST Routine Obstetrics [place] [phone] Linda Diaz MD [facility] [place] [address] 03/03/2024 4:30 PM EST Scheduled View Only Obstetrics [place] [address] 03/12/2024 10:45 AM EST Office Visit [place] [address] James Barth DO [facility] [place] [address] 05/23/2024 Hospital [place] [address] Maite Malloy MD [facility] OB[place] [address] documented as of this encounter Procedures Procedure [...] vagina, urethra and urine. GC Source Cervical [facility] Chlamydia Gene Amp Negative Negative [facility] Comment: The only FDA approved specimen types for this assay are cervix, vagina, urethra and urine. Chlm Source Cervical [facility] Cervical swab (specimen) 05/08/2016 5:19 PM EST 05/08/2016 5:19 PM EST Narrative Resulting Agency Comment Spec In Lab Richard Stallings MD MICROBIOLOGY - GENER AL ORDERABLES [facility] [place] [address] * US Transvaginal Non OB (05/08/2016 2:22 [...] 02:35 pm) PATIENT INFO: ID #: ? [id number] ?: ??[birth year] (25 yrs) Name: ? PREETHI Godoy ? Visit Date: 05/08/2016 02:20 pm ? LOUISE- ? FRANK PERFORMED BY: Performed By: ? Itzel Lezama RDMS Attending: ?Anca LMIA, Phylicia Guzman. Referred By: ?RICHARD STALLINGS MD Location: ? [place] SERVICE(S) PROVIDED: ??UTV - Transvaginal - [id number] ?[id number] ??U3D - ??3D rendering with interpretation - [id number] ? [id number] INDICATIONS: ??pelvic pain with IUD in place [...] 05/08/2016 02:35 pm) PATIENT INFO: ID #: [id number] : [birth year] (25 yrs) Name: PREETHI Godoy Visit Date: 05/08/2016 02:20 pm MARIO MARIE PERFORMED BY: Performed By: Itzel Lezama RDMS Attending: Phylicia March MD. Referred By: RICHARD STALLINGS MD Location: [place] SERVICE(S) PROVIDED: UTV - Transvaginal - [id number] U3D - 3D rendering with interpretation - [id number] INDICATIONS: pelvic pain with IUD in place [...] organs documented in this encounter Care Teams Multi Line Claims Adjuster Relationship Specialty Start Date End Date Valencia Adhikari, PRODUCTION SUPERINTENDENT [address] [place] [address] PCP - General 04/21/14 07/04/23 documented as of this encounter
--- OUTSIDE RECORDS SUMMARY | 2024-02-21 14:47 | XMS_ITS | Encounter Summary ---
Author Organization [facility] Address [facility] [place] [address] Care Team Providers Care Planing Machine Operator Name Role Phone Valencia Adhikari APRN Primary Care Provider +1 [phone] Encounter Details Date Type Department Care Team (Latest Contact Info) Description 03/20/2017 1:52 PM EST - 03/20/2017 11:59 PM [facility] Hospital Encounter XRay at [address] [place] [address] Kedar Santos MD [facility] [place] [address] Left shoulder pain, unspecified chronicity Discharge Disposition: [...] PM EST Appointment Radiology at [place] [phone] Linda Diaz MD [facility] MATERNAL AND MEDICINE [place] [address] 03/03/2024 4:00 PM EST Routine Obstetrics and Gynecology at [place] [phone] Linda Diaz MD [facility] MATERNAL AND MEDICINE [place] [address] 03/03/2024 4:30 PM EST Scheduled View Only Obstetrics and Gynecology at [place] [phone] 03/12/2024 10:45 AM EST Office Visit Endocrinology at [place] [phone] James Barth DO [facility] [place] [address] 05/23/2024 Hospital Encounter Birthing [place] [phone] Maite Malloy MD [facility] [place] [address] documented as of this encounter Procedures Procedure [...] Attending: Dr. Amanda TOLEDO Procedure performed by Lexii Joya APRN Narrative 03/20/2017 4:16 PM EST HISTORY: Left shoulder pain, inject for diagnostic/therapeutic purposes. LEFT SHOULDER JOINT INJECTION UNDER FLUOROSCOPY TECHNIQUE: After an extensive conversation with the patient regarding risks and benefits, oral and written consent were obtained. ??A pre- procedural time-out was performed as per [facility] protocol. The patient was placed supine on [...] flare were reviewed with patient. Procedure Note Lexii Joya APRN - 03/20/2017 HISTORY: Left shoulder pain, inject for diagnostic/therapeutic purposes. LEFT SHOULDER JOINT INJECTION UNDER FLUOROSCOPY TECHNIQUE: After an extensive conversation with the patient regardingrisks and benefits, oral and written consent were obtained. A pre- proceduraltime-out was performed as per [facility] protocol. The patient was placed supine on [...] Attending: Dr. Amanda TOLEDO Procedure performed by Lexii Joya APRN Kedar Santos MD IMG FLUORO [...] pre- procedural time-out was performed as per [facility] protocol. The patient was placed supine on [...] pre- procedural time-out was performed as per [facility] protocol. The patient was placed supine on [...] I performed this procedure. Kedar Santos MD [facility] PROC ORDERABL ES documented in this [...] (Left) documented in this encounter Care Teams Planing Machine Operator Relationship Specialty Start Date End Date Valencia Adhikari APRN [address] [place] [address] PCP - General 04/21/14 07/04/23 documented as of this encounter
--- OUTSIDE RECORDS SUMMARY | 2024-02-21 14:47 | XMS_ITS | Encounter Summary ---
Author Organization [facility] Address [facility] [place] [address] Care Team Providers Care Grooming Salon Manager Name Role Phone Valencia Adhikari APRN Primary Care Provider +1 [phone] Reason for Visit * Reason Comments Pain Management L posterior shoulder muscular pain * Consultation (Routine) - Closed Specialty Diagnoses / Procedures Referred By Contac t Referred To Contact Pain Management Diagnoses Chronic left shoulder pain Kedar Santos MD [facility] DR [place] [address] [facility] [address] [place] [address] Referral ID Status Reason Start Date Expiration Date V isits Requested Visits Authorized [id number] Closed Consult, Test & Treat 05/15/2017 05/15/2018 1 1 Encounter Details Date Type Department Care Team (Late st Contact Info) Description 06/05/2017 11:30 AM EST Office [place] [address] Deacon Webster MD [facility] [place] [address] Rotator cuff tendinitis, left; Biceps tendinitis of [...] as an apple and a at a longterm. She was pushing a wheeled table which [...] Average:5/10 She participated in physical therapy at [facility] in [facility]. Her therapy had been going well however she describes an event occurring approximately one month earlierin which she heard a pop in her shoulder and her pain returned. She is currently treating her pain with Voltaren gel and lidocaine patches. She underwent MRI imaging of the left shoulder in September 2016 at [facility] which was normal. She underwent [...] [facility] which didn't provide her with [...] a benzodiazepine? No Current use of other HURL SHAKER depressant? No Current diagnosis of Obstructive Seep [...] MONITORING, SETUP performed by JUAN ESPARZA at [facility] MAIN OR ??? PRO THYROIDECTOMY, MALIG, LTD NECK SURG 03/22/2011 THYROIDECTOMY, FOR MALIGNANCY, LIMITED NECK DISSECTION performed by JUAN ESPARZA at [facility] MAIN OR ??? TONSILLECTOMY 2010 ??? 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 Smoking status: [...] DATA: MRI of left shoulder 2017 at [facility] The results and images of this [...] 03/03/2024 3:00 PM [place] [address] Linda Diaz MD [facility] [place] [address] 03/03/2024 4:00 PM EST Routine Obstetrics [place] [address] Linda Diaz MD [facility] [place]NAL [place] [address] 03/03/2024 4:30 PM EST Scheduled View Only Obstetrics [place] [address] 03/12/2024 10:45 AM EST Office [place] [phone] James Barth DO [facility] [place] [address] 05/23/2024 Hospital [place] [address] Maite Malloy MD [facility] DR OBSTETRICS [place] [address] documented as of this encounter Visit Diagnoses Diagnosis Rotator cuff tendinitis, left Biceps tendinitis of left shoulder documented in this encounter Care Teams Grooming Salon Manager Relationship Specialty Start Date End Date Valencia Adhikari APRN [address] [place] [address] PCP - General 04/21/14 07/04/23 documented as of this encounter
--- OUTSIDE RECORDS SUMMARY | 2024-02-21 14:47 | XMS_ITS | Encounter Summary ---
Author Organization [facility] Address [facility] [place] [address] Care Team Providers Care Comfort Station Supervisor Name Role Phone Valencia Adhikari APRN Primary Care Provider +1 -[phone] Reason for Visit * Reason Comments Depression Anxiety * Consultation (Routine) - Closed Specialty Diagnoses / Procedures Referred By Contwillow t Referred To Contact Psychiatry Diagnoses Anxiety, depression StressJoceline cardoza APRN [address] [place] [address] [facility] [place] [address] Referral ID Status Reason Start Date Expiration Date V isits Requested Visits Authorized [id number] Closed Consult, Test & Treat [facility] 05/29/2017 05/29/2018 1 1 Encounter Details Date Type Department Care Team (Late st Contact Info) Description 07/26/2017 10:00 AM EDT Office Visit Psychiatry [place] [phone] Argelia Mccray APRN [facility] DR PS[place]CHI[place] [address] CHARISSE (generalized anxiety disorder); Major [...] most of the time Pain impact Moderately [place] calm A little of the time Lot of energy Some of the time [place] downhearted Most of the time Social Impact [...] milestones Social History: 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 [...] 03/03/2024 3:00 PM [place] [address] Linda Diaz MD [facility] MATERNAL [place] [address] 03/03/2024 4:00 PM EST Routine Obstetrics [place] [address] Linda Diaz MD [facility] [place] [address] 03/03/2024 4:30 PM EST Scheduled View Only Obstetrics and Gynecology at [place] [phone] 03/12/2024 10:45 AM EST Office Visit Endocrinology at [place] [phone] James Barth DO [facility] ENDOCRINOLOG[place] [address] 05/23/2024 Hospital Encounter Birthing [place] [phone] Maite Malloy MD [facility] [address] OBSTETRICS [place] [address] documented as of this encounter Visit Diagnoses Diagnosis CHARISSE (generalized anxiety disorder) Generalized anxiety disorder Major depressive disorder, recurrent episode, moderate Bipolar affective disorder, remission status unspecified documented in this encounter Care Teams Comfort Station Supervisor Relationship Specialty Start Date End Date Valencia Adhikari APRN [address] [place] [address] PCP - General 04/21/14 07/04/23 documented as of this encounter
--- OUTSIDE RECORDS SUMMARY | 2024-02-21 14:47 | XMS_ITS | Encounter Summary ---
Author Organization [facility] [place] [address] Care Team Providers Care Access Service Representative Name Role Phone Onofre Valencia Barton APRN Primary Care Provider +1 -[phone] Reason for Visit * Reason Onset Date Comments Medication Refill 06/27/2017 Encounter Details Date Type Department Care Team (Late st Contact Info) Description 06/27/2017 [place] [phone] Yolanda Salomon RN Left shoulder pain, unspecified [...] left shoulder injection under fluoroscopy in [place] [facility] [place] [facility] [...] on 12hours and off 12 hours. Diclofenac [id number] g apply 2 g topically 4x/day. Prescription sent electronically to [facility] by in [place], [place]. The patient knows how to contact orthopaedics if any further questions or concerns occur. documented in this encounter Plan of Treatment Upcoming Encounters Date Type Department Care Team (Late st Contact Info) Description 03/03/2024 3:00 PM [place] [address] Linda Diaz MD [facility] [place] [address] 03/03/2024 4:00 PM EST Routine Obstetrics [place] [address] Linda Diaz MD [facility] [place] [address] 03/03/2024 4:30 PM EST Scheduled View Only Obstetrics [place] [address] 03/12/2024 10:45 AM EST Office [place] [address] James Barth DO [facility] [place] [address] 05/23/2024 Hospital [place] [address] Maite Malloy MD [facility] OB[place] [address] documented as of this encounter Visit Diagnoses Diagnosis Left shoulder pain, unspecified chronicity documented in this encounter Care Teams Access Service Representative Relationship Specialty Start Date End Date Valencia Adhikari APRN [address] [place] [address] PCP - General 04/21/14 07/04/23 documented as of this encounter
--- OUTSIDE RECORDS SUMMARY | 2024-02-21 14:47 | XMS_ITS | Encounter Summary ---
Author Organization [facility] [place] [address] Care Team Providers Care Metalizer Field Operation Name Role Phone Valencia Adhikari APRN Primary Care Provider +1 [phone] Reason for Visit * Reason Onset Date Comments Medication Refill 09/13/2017 Encounter Details Date Type Department Care Team (Late st Contact Info) Description 09/13/2017 Refill Psychiatry [place] [phone] Argelia Mccray APRN [facility] [place] [address] Depression, unspecified depression type Social History Tobacco [...] 03/03/2024 3:00 PM EST [place] [phone] Linda Diaz MD [facility] DR MATERNAL AND MEDICINE [place], [place] [phone] 03/03/2024 4:00 PM EST Routine Obstetrics and Gynecology at [place] [phone] Linda Diaz MD [facility] [place] [address] 03/03/2024 4:30 PM EST Scheduled View Only Obstetrics and Gynecology at [place] [phone] 03/12/2024 10:45 AM EST Office Visit Endocrinology at [address] James Barth DO [facility] [place] [address] 05/23/2024 Hospital Encounter Birthing [place] [phone] Maite Malloy MD [facility] DR OBSTETRICS [place] [address] documented as of this encounter Visit Diagnoses Diagnosis Depression, unspecified depression type documented in this encounter Care Teams Metalizer Field Operation Relationship Specialty Start Date End Date Valencia Adhikari APRN [address] [place] [address] PCP - General 04/21/14 07/04/23 documented as of this encounter
--- OUTSIDE RECORDS SUMMARY | 2024-02-21 14:47 | XMS_ITS | Encounter Summary ---
Author Organization [facility] [place] [address] Care Team Providers Care Square Dance Caller Name Role Phone Valencia Adhikari APRN Primary Care Provider +1 [phone] Encounter Details Date Type Department Care Team (Latest Contact Info) Description 04/12/2016 10:00 AM EST - 04/12/2016 11:59 PM [facility] Hospital [place] [address] Valencia Adhikari APRN [address] [place], [place] [address] Galactorrhea Discharge Disposition: Home Social History Tobacco [...] 3:00 PM EST Appointment Radiology at [address]1000 Linda Diaz MD [facility] [place]NAL [place] [address] 03/03/2024 4:00 PM EST Routine Obstetrics and Gynecology at [address]1000 Linda Diaz MD [facility] [place]ERNAL [place] [address] 03/03/2024 4:30 PM EST Scheduled View Only Obstetrics and Gynecology at [address] 03/12/2024 10:45 AM EST Office Visit Endocrinology at [address]1000 James Barth DO [facility] [place] [address] 05/23/2024 Hospital Encounter Birthing [place] [phone] Maite Malloy MD [facility] DR OBSTETRICS [place] [address] documented as of this encounter Procedures Procedure [...] childbirth documented in this encounter Care Teams Square Dance Caller Relationship Specialty Start Date End Date Valencia Adhikari APRN [address] [place] [address] PCP - General 04/21/14 07/04/23 documented as of this encounter
--- OUTSIDE RECORDS SUMMARY | 2024-02-21 14:48 | XMS_ITS | Encounter Summary ---
Author Organization [facility] [place] [address] Care Team Providers Care Certified Registered Nurse Anesthetist Name Role Phone None Primary Care Provider Unavailabl e Encounter Details Date Type Department Care Team (Late st Contact Info) Description 07/04/2013 Telephone [place] [address] Omayra Meredith LPN Social History Tobacco Use [...] 03/03/2024 3:00 PM EST Appointment Radiology at [address]1000 Linda Diaz MD [facility] [place] [address] 03/03/2024 4:00 PM EST Routine Obstetrics and Gynecology at [place] [phone] Linda Diaz MD [facility] [place] [address] 03/03/2024 4:30 PM EST Scheduled View Only Obstetrics and Gynecology at [address] 03/12/2024 10:45 AM EST Office Visit Endocrinology at [address]1000 James Barth DO [facility] [place] [address] 05/23/2024 Hospital Encounter Birthing [place] [phone] Maite Malloy MD [facility] DR OBSTETRICS [place] [address] documented as of this encounter Visit Diagnoses Not on filedocumented in this encounter Care Teams Certified Registered Nurse Anesthetist Relationship Specialty Start Date End Date None None PCP - General 05/08/12 04/20/14 documented as of this encounter
--- OUTSIDE RECORDS SUMMARY | 2024-02-21 14:48 | XMS_ITS | Encounter Summary ---
Author Organization [facility] [place] [address] Care Team Providers Care Lift Manager Name Role Phone None Primary Care Provider Unavailrisa e Encounter Details Date Type Department Care Team (Late st Contact Info) Description 04/17/2014 Telephone [place] [phone] Taty Browne Social History Tobacco Use Types [...] Name: Andree Hummel : 1990 Phone number: [phone] (home) Mailing address: [place] [address] Age: 23 y.o. Appointment date: TBD Appointment [...] 04/15/14 [facility] [place] [place] PH: [phone] FAX: [phone] IMG PUSH MRI: No CT Scan: No [...] copy to your next appointment. Advance Directive gliding pilot instructor: New patient with knee pain under age of 56. MyDH Do you have a MyDH account? No - Patient Declined - MOM BOOKED documented in this encounter Plan of Treatment Upcoming Encounters Date Type Department Care Team (Late st Contact Info) Description 03/03/2024 3:00 PM EST Appointment Radiology at [address]1000 Linda Diaz MD [facility] [place] [address] 03/03/2024 4:00 PM EST Routine Obstetrics and Gynecology at [place] [phone] Linda Diaz MD [facility] [place] [address] 03/03/2024 4:30 PM EST Scheduled View Only Obstetrics and Gynecology at [place] [phone] 03/12/2024 10:45 AM EST Office Visit Endocrinology at [address] James Barth DO [facility] [place] [address] 05/23/2024 Hospital [place] [phone] Maite Malloy MD [facility] OBSTET[place] [address] documented as of this encounter Visit Diagnoses Not on filedocumented in this encounter Care Teams Lift Manager Relationship Specialty Start Date End Date None None PCP - General 05/08/12 04/20/14 documented as of this encounter
--- OUTSIDE RECORDS SUMMARY | 2024-02-21 14:48 | XMS_ITS | Encounter Summary ---
Author Organization [facility] [place] [address] Care Team Providers Care General Education Professor Name Role Phone None Primary Care Provider Unavailabl e Encounter Details Date Type Department Care Team (Late st Contact Info) Description 12/12/2012 [place] [phone] Omayra Meredith LPN Social History Tobacco Use [...] Taking 250 mcg daily. Called lab at [facility] for results. Received and forward to Dr avila. * Telephone Encounter - Omayra Meredith LPN - 12/12/2012 11:35 AM EDT Patient asking for order to go to [facility] to check thyroid has not been checked since of baby and was not able to go at beginning of November as baby was sick. Order faxed to [facility] documented in this encounter Plan of Treatment Upcoming Encounters Date Type Department Care Team (Late st Contact Info) Description 03/03/2024 3:00 PM EST Appointment Radiology at [place] [phone] Linda Diaz MD [facility] [place] [address] 03/03/2024 4:00 PM EST Routine Obstetrics [place] [address] Linda Diaz MD [facility] [place] [address] 03/03/2024 4:30 PM EST Scheduled View Only Obstetrics [place] [address] 03/12/2024 10:45 AM EST Office [place] [phone] James Barth DO [facility] [place] [address] 05/23/2024 [place] [address] Maite Malloy MD [facility] OBSTETRICS [place] [address] documented as of this encounter Visit Diagnoses Not on filedocumented in this encounter Care Teams General Education Professor Relationship Specialty Start Date End Date None None PCP - General 05/08/12 04/20/14 documented as of this encounter
--- OUTSIDE RECORDS SUMMARY | 2024-02-21 14:48 | XMS_ITS | Encounter Summary ---
Author Organization Formerly [facility] [place] [address] Care Team Providers Care Audio Experience Expert Name Role Phone None Primary Care Provider Unavailabl e Reason for Visit * Reason Onset Date Comments Medication Refill 12/17/2012 Encounter Details Date Type Department Care Team (Late st Contact Info) Description 12/17/2012 Refill [place] [phone] Griffin Wallis III, MD [facility] DR [place] [address] Social History Tobacco Use Types Packs/Day Years [...] 03/03/2024 3:00 PM EST Appointment [place] [address] Linda Diaz MD [facility] MATERNAL [place] [address] 03/03/2024 4:00 PM EST Routine Obstetrics and Gynecology at [place] [phone] Linda Diaz MD [facility] [place] [address] 03/03/2024 4:30 PM EST Scheduled View Only Obstetrics and Gynecology at [address]1000 03/12/2024 10:45 AM EST Office Visit Endocrinology at [place] [address] James Barth DO [facility] [place] [address] 05/23/2024 Hospital Encounter Birthing [place] [phone] Maite Malloy MD [facility] OBSTETRICS [place] [address] documented as of this encounter Visit Diagnoses Not on filedocumented in this encounter Care Teams Audio Experience Expert Relationship Specialty Start Date End Date None None PCP - General 05/08/12 04/20/14 documented as of this encounter
--- OUTSIDE RECORDS SUMMARY | 2024-02-21 14:48 | XMS_ITS | Encounter Summary ---
Author Organization Count Includes [facility] Address [facility] [place] [address] Care Team Providers Care Shot Man Name Role Phone Valencia Adhikari APRN Primary Care Provider [phone] Reason for Visit * Reason Comments Back Pain Encounter Details Date Type Department Care Team (Late st Contact Info) Description 04/25/2015 10:57 PM EST - 04/26/2015 1:39 AM EST [place] [address] Eduardo Braun MD [facility] [place] [address] Cervical strain, initial encounter; Closed head injury, [...] PM EST Appointment Radiology at [place] [phone] Linda Diaz MD [facility] [place] [address] 03/03/2024 4:00 PM EST Routine Obstetrics [place] [address] Linda Diaz MD [facility] [place] [address] 03/03/2024 4:30 PM EST Scheduled View Only Obstetrics [place] [address] 03/12/2024 10:45 AM EST Office Visit Endocrinology at [facility] [place] [address] James Barth DO [facility] [place] [address] 05/23/2024 Hospital Encounter [facility] [place] [address] Maite Malloy MD [facility] OBSTETRICS [place] [address] documented as of this encounter Procedures Procedure [...] tablet 2 tablet 2 tablet, Oral, ONCE, On Sun04/26/15 at 0031, 1 dose, Maximum dose of acetaminophen is 4000 mg from all sources in 24 hours. Given 04/26/2015 12:40 AM EST 2 tablets documented in this encounter Active and Recently Administered Medications Times are shown in EST. Scheduled Medication Order 04/24/2015 04/25/2015 04/26/2015 ketorolac (TORADOL) injection 30 mg (COMPLETED) 30 mg, Intravenous, ONCE, 1 dose, On 04/25/15 at 2335, STAT 2335 (Given - Provider: Lianne Lakhani) oxyCODONE-acetaminophen (PERCOCET) 5-325 mg per tablet 2 tablet (COMPLETED) 2 tablet, Oral, ONCE, On 04/26/15 at 0031, 1 dose, Maximum dose of acetaminophen is 4000 mg from all sources in 24 hours. 0040 (Given - Provid er: Lianne Lakhani) documented in this encounter Care Teams Shot Man Relationship Specialty Start Date End Date Valencia Adhikari APRN [address] [place] [address] PCP - General 04/21/14 07/04/23 documented as of this encounter
--- OUTSIDE RECORDS SUMMARY | 2024-02-21 14:48 | XMS_ITS | Encounter Summary ---
Author Organization [facility] [place] [address] Care Team Providers Care Warehouse Supervisor 3Rd Shift Name Role Phone None Primary Care Provider Unavailabl e Reason for Visit * Reason Comments Routine Visit Encounter Details Date Type Department Care Team (Late st Contact Info) Description 09/12/2012 11:00 AM EDT Routine Obstetrics [place] [address] Lalita Carmona MD [facility] DR OBSTET[place] [address] Mely Mccord MD [facility] DR OBSTET[place]ICS [place] [address] GA: 31w2d Discharge Disposition: Home Social History [...] 03/03/2024 3:00 PM EST Appointment Radiology at [address]1000 Linda Diaz MD [facility] [place] [address] 03/03/2024 4:00 PM EST Routine Obstetrics and Gynecology at [place] [phone] Linda Diaz MD [facility] [place] [address] 03/03/2024 4:30 PM EST Scheduled View Only Obstetrics and Gynecology at [place] [phone] 03/12/2024 10:45 AM EST Office Visit Endocrinology at [address]1000 James Barth DO [facility] [place] [address] 05/23/2024 Hospital [place] [phone] Maite Malloy MD [facility] OB[place] [address] documented as of this encounter Visit Diagnoses Diagnosis Unspecified high-risk - Primary documented in this encounter Care Teams Warehouse Supervisor 3Rd Shift Relationship Specialty Start Date End Date None None PCP - General 05/08/12 04/20/14 documented as of this encounter
--- OUTSIDE RECORDS SUMMARY | 2024-02-21 14:48 | XMS_ITS | Encounter Summary ---
Author Organization [facility] Address [facility] [place] [address] Care Team Providers Care Executive Coach Name Role Phone None Primary Care Provider Unavailabl e Encounter Details Date Type Department Care Team (Late st Contact Info) Description 09/30/2012 Orders Only [place] [address] Griffin Wallis III, MD [facility] [place] [address] Hypothyroidism (Primary Dx) Social History [...] 03/03/2024 3:00 PM EST Appointment [place] [address] Linda Diaz MD [facility] MATERNAL AND MEDICINE [place], [place] [phone] 03/03/2024 4:00 PM EST Routine Obstetrics [place] [address] Linda Diaz MD [facility] [place]NAL [place] [address] 03/03/2024 4:30 PM EST Scheduled View Only Obstetrics and Gynecology at [address]1000 03/12/2024 10:45 AM EST Office Visit Endocrinology at [address]1000 James Barth DO [facility] [place] [address] 05/23/2024 Hospital Encounter Birthing [place] [phone] Maite Malloy MD [facility] DR [place] [address] documented as of this encounter Visit Diagnoses Diagnosis Hypothyroidism- Primary Unspecified hypothyroidism documented in this encounter Care Teams Executive Coach Relationship Specialty Start Date End Date None None PCP - General 05/08/12 04/20/14 documented as of this encounter
--- OUTSIDE RECORDS SUMMARY | 2024-02-21 14:48 | XMS_ITS | Encounter Summary ---
Author Organization [facility] [place] [address] Care Team Providers Care Clinical Trial Data Manager Name Role Phone None Primary Care Provider Unavailabl e Reason for Visit * Reason Onset Date Comments Advice Only 09/30/2012 Encounter Details Date Type Department Care Team (Late Contact Info) Description 09/30/2012 Telephone Endocrinology at [facility] [place] [phone] Omayra Meredith LPN Advice Only Social History [...] and [place] [facility] [place]born 8 week early[place] Order to be placed here. If baby discharged within two weeks patient will call to have order faxed to local lab. documented in this encounter Plan of Treatment Upcoming Encounters Date Type Department Care Team (Late st Contact Info) Description 03/03/2024 3:00 PM EST Appointment Radiology at [address]1000 Linda Diaz MD [facility] [place] [address] 03/03/2024 4:00 PM EST Routine Obstetrics and Gynecology at [place] [phone] Linda Diaz MD [facility] [place] [address] 03/03/2024 4:30 PM EST Scheduled View Only Obstetrics and Gynecology at [place] [phone] 03/12/2024 10:45 AM EST Office Visit Endocrinology at [address]1000 James Barth DO [facility] [place] [address] 05/23/2024 Hospital Encounter Birthing [place] [phone] Maite Malloy MD [facility] DR OBSTETRICS [place] [address] documented as of this encounter Visit Diagnoses Not on filedocumented in this encounter Care Teams Clinical Trial Data Manager Relationship Specialty Start Date End Date None None PCP - General 05/08/12 04/20/14 documented as of this encounter
--- OUTSIDE RECORDS SUMMARY | 2024-02-21 14:48 | XMS_ITS | Encounter Summary ---
Author Organization [facility] Address [facility] [place] [address] Care Team Providers Care Diagram Clerk Name Role Phone None Primary Care Provider Unavailabl e Encounter Details Date Type Department Care Team (Latest Contact Info) Description 09/15/2012 10:09 AM EDT - 09/15/2012 11:59 PM EDT Hospital [place] [phone] Griffin Allen MD [facility] PEDIATRICS/[place] [address] Discharge Disposition: Home Social History Tobacco Use [...] 03/03/2024 3:00 PM EST Appointment Radiology at [place] [phone] Linda Diaz MD [facility] [place] [address] 03/03/2024 4:00 PM EST Routine Obstetrics and Gynecology at [place] [phone] Linda Diaz MD [facility] [place] [address] 03/03/2024 4:30 PM EST Scheduled View Only Obstetrics [place] [address] 03/12/2024 10:45 AM EST Office [place] [phone] James Barth DO [facility] [place] [address] 05/23/2024 Hospital Encounter Birthing [facility] [place] [address] Maite Malloy MD [facility] DR OBSTETRICS [place] [address] documented as of this encounter Procedures Procedure Name Priority Date/Time Associated Diagnosis Comments SURGICAL PATHOLOGY REPORT Routine 09/15/2012 10:31 AM EDT documented in this encounter Results * Surgical Pathology Report (09/15/2012 10:31 AM EDT) Surgical Pathology Report ? [facility] ? Provider: ?? GRIFFIN ALLEN ??Pt. Name: ?? ANDREE HUMMEL ? E ? Acc #: ?[id number] ?Pt. ? Col Date: ?? 09/15/2012 ?/Sex: [...] Description: Intact discoid, locke placenta. ?Membranes: ? [place] and semitransparent with 100 percent marginal ? [...] born at home. ??Respiratory distress, hypotonia. ? [facility] ? Provider: ?? GRIFFIN ALLEN ??Pt. Name: ?? ANDREE HUMMEL ? E ? Acc #: ?[id number] ?Pt. ? Col Date: ?? 09/15/2012 ?/Sex: ?1990,(22 years),Female ? Rec Date: ?? 09/16/2012 ?LOC: ?OPW ? SURGICAL PATHOLOGY ? Clinical Diagnosis: ? Same HANNAH POTTERIUM 09/15/2012 10:3 1 AM EDT Griffin Allen MD PATHOLOGY/CYTOLOGY ORDERABLES HANNAH SERRANO documented in this encounter Visit Diagnoses Not on filedocumented in this encounter Care Teams Diagram Clerk Relationship Specialty Start Date End Date None None PCP - General 05/08/12 04/20/14 documented as of this encounter
--- OUTSIDE RECORDS SUMMARY | 2024-02-21 14:48 | XMS_ITS | Encounter Summary ---
Author Organization [facility] Address [facility] [place] [address] Care Team Providers Care Clinical Education Manager Name Role Phone Valencia Adhikari APRN Primary Care Provider [phone] [phone] Reason for Visit * Reason Comments Left Knee Pain Encounter Details Date Type Department Care Team (Late st Contact Info) Description 04/21/2014 1:30 PM EST Office [place] [phone] Joshua Padron MD [facility] [place] [address] Alysa Lauren MD [facility] [place] [address] Left knee pain Discharge Disposition: Home Social [...] her leg. She was eventually seen at [facility] where she had x-rays and [...] 03/03/2024 3:00 PM EST Appointment Radiology at [place] [phone] Linda Diaz MD [facility] [place] [address] 03/03/2024 4:00 PM EST Routine Obstetrics and Gynecology at [place] [phone] Linda Diaz MD [facility] [place] [address] 03/03/2024 4:30 PM EST Scheduled View Only Obstetrics and Gynecology at [address]1000 03/12/2024 10:45 AM EST Office Visit Endocrinology at [place] [address] James Barth DO [facility] [place] [address] 05/23/2024 Hospital Encounter Birthing [place] [phone] Maite Malloy MD [facility] DR OBSTET[place]ICS [place] [address] documented as of this encounter Visit Diagnoses Diagnosis Left knee pain Pain in joint, lower leg documented in this encounter Care Teams Clinical Education Manager Relationship Specialty Start Date End Date Valencia Adhikari APRN [address] [place] [address] PCP - General 04/21/14 07/04/23 documented as of this encounter
--- OUTSIDE RECORDS SUMMARY | 2024-02-21 14:48 | XMS_ITS | Encounter Summary ---
Author Organization [facility] Address [facility] [place] [address] Care Team Providers Care Certified Tower Climber Name Role Phone Valencia Adhikari APRN Primary Care Provider [phone] [phone] Encounter Details Date Type Department Care Team (Latest Contact Info) Description 02/06/2016 12:10 AM EDT - 02/06/2016 11:59 PM EDT Hospital Encounter Radiology Library at [facility] [place] [phone] Kedar Santos MD [facility] [place] [address] Discharge Disposition: Home Social History Tobacco Use [...] PM EST Appointment Radiology at [place] [phone] Linda Diaz MD [facility] [place] [address] 03/03/2024 4:00 PM EST Routine Obstetrics and Gynecology at [place] [phone] Linda Diaz MD [facility] [place] [address] 03/03/2024 4:30 PM EST Scheduled View Only Obstetrics and Gynecology at [place] [phone] 03/12/2024 10:45 AM EST Office Visit Endocrinology at [place] [phone] James Barth DO [facility] [place] [address] 05/23/2024 Hospital [place] [address] Maite Malloy MD [facility] DR OBSTETRICS [place] [address] documented as of this encounter Procedures Procedure Name Priority Date/Time Associated Diagnosis Comments FILM LIBRARY STORAGE ONLY CT ELBOW Routine 02/06/2016 12:10 AM EDT documented in this encounter Results * Film Library- Storage Only CT Elbow (02/06/2016 12:10 AM EDT) Narrative RUDY - 05/17/2017 11:25 AM EST This exam is for storage only and is auto-finalizing. Kedar Santos MD IMG FILM LIBRARY ORD ERABLES Performing Organization Address City/State/[facility] Co de Phone Number [place], [place] documented in this encounter Visit Diagnoses Not on filedocumented in this encounter Care Teams Certified Tower Climber Relationship Specialty Start Date End Date Valencia Adhikari APRN [address] [place] [address] PCP - General 04/21/14 07/04/23 documented as of this encounter
--- OUTSIDE RECORDS SUMMARY | 2024-02-21 14:48 | XMS_ITS | Encounter Summary ---
Author Organization [facility] [place] [address] Care Team Providers Care Director Of Regional Sales Name Role Phone None Primary Care Provider Unavailabl e Encounter Details Date Type Department Care Team (Late st Contact Info) Description 09/12/2012 Telephone Obstetrics [place] [address] Valorie Hair MD [facility] DR OBSTETRICS & [place] [address] Social History Tobacco Use Types Packs/Day Years [...] to patient. Patient reporting that she had [place]-Vaz[place] earlier today that went away. She then [...] 03/03/2024 3:00 PM EST Appointment Radiology at [place] [phone] Linda Diaz MD [facility] DR [place] [address] 03/03/2024 4:00 PM EST Routine Obstetrics and Gynecology at [place] [phone] Linda Diaz MD [facility] DR [place]ER[place] [address] 03/03/2024 4:30 PM EST Scheduled View Only Obstetrics and Gynecology at [place] [phone] 03/12/2024 10:45 AM EST Office Visit Endocrinology at [place] [address] James Barth DO [facility] [place] [address] 05/23/2024 Hospital [place] [phone] Maite Malloy MD [facility] DR OBSTETRICS [place] [address] documented as of this encounter Visit Diagnoses Not on filedocumented in this encounter Care Teams Director Of Regional Sales Relationship Specialty Start Date End Date None None PCP - General 05/08/12 04/20/14 documented as of this encounter
--- OUTSIDE RECORDS SUMMARY | 2024-02-21 14:48 | XMS_ITS | Encounter Summary ---
Author Organization [facility] Address [facility] [place] [address] Care Team Providers Care Box Press Operator Name Role Phone None Primary Care Provider Unavailabl e Encounter Details Date Type Department Care Team (Latest Contact Info) Description 09/18/2012 10:28 AM EDT - 09/18/2012 10:29 AM EDT Hospital [place] [address] Myles Shipman MD [facility] DR OBSTETRICS & [place] [address] Discharge Disposition: Home Social History Tobacco Use [...] 03/03/2024 3:00 PM EST Appointment Radiology at [place] [phone] Linda Diaz MD [facility] [place] [address] 03/03/2024 4:00 PM EST Routine Obstetrics and Gynecology at [place] [phone] Linda Diaz MD [facility] [place] [address] 03/03/2024 4:30 PM EST Scheduled View Only Obstetrics [place] [phone] 03/12/2024 10:45 AM EST Office Visit Endocrinology at [place] [phone] James Barth DO [facility] [place] [address] 05/23/2024 [place] [address] Maite Malloy MD [facility] OBSTETRICS [place] [address] documented as of this encounter Visit Diagnoses Not on filedocumented in this encounter Care Teams Box Press Operator Relationship Specialty Start Date End Date None None PCP - General 05/08/12 04/20/14 documented as of this encounter
--- OUTSIDE RECORDS SUMMARY | 2024-02-21 14:48 | XMS_ITS | Encounter Summary ---
Author Organization [facility] Address [facility] [place] [address] Care Team Providers Care Auto Job Estimator Name Role Phone Valencia Adhikari APRN Primary Care Provider [phone] Reason for Visit * Reason Comments Left Knee Pain Encounter Details Date Type Department Care Team (Late st Contact Info) Description 05/05/2014 2:30 PM EST Office [place] [phone] Joshua Padron MD [facility] [place] [address] Left knee pain Discharge Disposition: Home Social [...] COMPLAINT: Left knee pain. SUPERVISING ATTENDING: Dr. Pardon. 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 We will see her back only if needed. documented in this encounter Plan of Treatment Upcoming Encounters Date Type Department Care Team (Late st Contact Info) Description 03/03/2024 3:00 PM EST [place] [phone] Linda Diaz MD [facility] MATERNAL [place] [address] 03/03/2024 4:00 PM EST Routine Obstetrics and Gynecology at [place] [phone] Linda Diaz MD [facility] [address] MATERNAL [place] [address] 03/03/2024 4:30 PM EST Scheduled View Only Obstetrics and Gynecology at [place] [phone] 03/12/2024 10:45 AM EST Office Visit Endocrinology at [place] [phone] James Barth DO [facility] [place] [address] 05/23/2024 Hospital Encounter Birthing [place] [phone] Maite Malloy MD [facility] DR OBSTETRICS [place] [address] documented as of this encounter Visit Diagnoses Diagnosis Left knee pain Pain in joint, lower leg documented in this encounter Care Teams Auto Job Estimator Relationship Specialty Start Date End Date Valencia Adhikari APRN [address] [place] [address] PCP - General 04/21/14 07/04/23 documented as of this encounter
--- OUTSIDE RECORDS SUMMARY | 2024-02-21 14:48 | XMS_ITS | Encounter Summary ---
Author Organization [facility] [address] Care Team Providers Care Pyrometallurgical Engineer Name Role Phone None Primary Care Provider Unavailabl e Reason for Visit * Reason Onset Date Comments Post Hospital Discharge 09/16/2012 Encounter Details Date Type Department Care Team (Late st Contact Info) Description 09/16/2012 Telephone Obstetrics [place] [address] Eufemia Farias RN Post Hospital Discharge Social [...] Andree who has just been d/c'd from [facility] for labor. 31w3d with EDC October 20. . LMOM. 2nd call to check on Andree. Left contact information on machine. documented in this encounter Plan of Treatment Upcoming Encounters Date Type Department Care Team (Late st Contact Info) Description 03/03/2024 3:00 PM EST Appointment [place] [address] Linda Diaz MD [facility] [place] [address] 03/03/2024 4:00 PM EST Routine Obstetrics and Gynecology at [place] [phone] Linda Diaz MD [facility] [place] [address] 03/03/2024 4:30 PM EST Scheduled View Only Obstetrics and Gynecology at [place] [phone] 03/12/2024 10:45 AM EST Office Visit [place] [address] James Barth DO [facility] [place] [address] 05/23/2024 Hospital Encounter Birthing [place] [phone] Maite Malloy MD [facility] DR OBSTETRICS [place] [address] documented as of this encounter Visit Diagnoses Not on filedocumented in this encounter Care Teams Pyrometallurgical Engineer Relationship Specialty Start Date End Date None None PCP - General 05/08/12 04/20/14 documented as of this encounter
--- OUTSIDE RECORDS SUMMARY | 2024-02-21 14:48 | XMS_ITS | Encounter Summary ---
Author Organization [facility] Address [facility] [place] [address] Care Team Providers Care Chemicals Fermentation Operator Name Role Phone Valencia Adhikari APRN Primary Care Provider +1 -[phone] Encounter Details Date Type Department Care Team (Latest Contact Info) Description 02/06/2016 - 02/06/2016 12:04 AM EDT Hospital Encounter Radiology Library at [facility] [place] [phone] Kedar Santos MD [facility] [place] [address] Discharge Disposition: Home Social History Tobacco Use [...] 03/03/2024 3:00 PM EST Appointment Radiology at [address] Linda Diaz MD [facility] [place] [address] 03/03/2024 4:00 PM EST Routine Obstetrics and Gynecology at [place] [phone] Linda Diaz MD [facility] [place] [address] 03/03/2024 4:30 PM EST Scheduled View Only Obstetrics and Gynecology at [place] [phone] 03/12/2024 10:45 AM EST Office Visit Endocrinology at [place] [phone] James Barth DO [facility] [place] [address] 05/23/2024 Hospital [place] [phone] Maite Malloy MD [facility] DR OBSTETRICS [place] [address] documented as of this encounter Procedures Procedure Name Priority Date/Time Associated Diagnosis Comments FILM LIBRARY STORAGE ONLY DX ELBOW Routine 02/06/2016 12:00 AM EDT documented in this encounter Results * Film Library- Storage Only DX Elbow (02/06/2016 12:00 AM EDT) Narrative RAD - 05/17/2017 11:21 AM EST This exam is for storage only and is auto-finalizing. Kedar Santos MD IM FILM LIBRARY ORD ERABLES Performing Organization Address City/State/[facility] Co de Phone Number [place], [place] documented in this encounter Visit Diagnoses Not on filedocumented in this encounter Care Teams Chemicals Fermentation Operator Relationship Specialty Start Date End Date Valencia Adhikari APRN [address] [place] [address] PCP - General 04/21/14 07/04/23 documented as of this encounter
--- OUTSIDE RECORDS SUMMARY | 2024-02-21 14:48 | XMS_ITS | Encounter Summary ---
Author Organization Formerly [facility] [place] [address] Care Team Providers Care Psychology Intern Name Role Phone Valencia Adhikari APRN Primary Care Provider +1 [phone] Reason for Visit * Reason Onset Date Comments Other 12/21/2015 Encounter Details Date Type Department Care Team (Late st Contact Info) Description 12/21/2015 Telephone Neurology at [facility] [place] [phone] Neo Pleitez [place] [facility] [place] [address] Other Social History Tobacco Use Types Packs/Day [...] asks that I send the order to [facility] lab and I will do that. She will call toschedule her MRI. * Telephone Encounter - Jeanette Doss Jazlyn - 12/21/2015 1:54 PM EDT Patient called looking for results from labs from this morning Please call [phone] Thanks documented in this encounter Plan of Treatment Upcoming Encounters Date Type Department Care Team (Late st Contact Info) Description 03/03/2024 3:00 PM EST Appointment Radiology at [address]1000 Linda Diaz MD [facility] [place] [address] 03/03/2024 4:00 PM EST Routine Obstetrics and Gynecology at [address]1000 Linda Diaz MD [facility] DR [place]ERNAL [place] [address] 03/03/2024 4:30 PM EST Scheduled View Only Obstetrics and Gynecology at [address]1000 03/12/2024 10:45 AM EST Office Visit Endocrinology at [address]1000 James Barth DO [facility] [place] [address] 05/23/2024 Hospital [place] [address] Maite Malloy MD [facility] DR OBSTETRICS [place] [address] documented as of this encounter Visit Diagnoses Not on filedocumented in this encounter Care Teams Psychology Intern Relationship Specialty Start Date End Date Valencia Adhikari APRN [address] [place] [address] PCP - General 04/21/14 07/04/23 documented as of this encounter
--- OUTSIDE RECORDS SUMMARY | 2024-02-21 14:48 | XMS_ITS | Encounter Summary ---
Author Organization [facility] Address [facility] [place] [address] Care Team Providers Care Meter Tester Name Role Phone Valencia Adhikari APRN Primary Care Provider +1 [phone] Encounter Details Date Type Department Care Team (Latest Contact Info) Description 02/06/2016 12:05 AM EDT - 02/06/2016 12:09 AM EDT Hospital Encounter Radiology Library at [facility] [place] [phone] Kedar Santos MD [facility] [place] [address] Discharge Disposition: Home Social History Tobacco Use [...] 03/03/2024 3:00 PM EST Appointment Radiology at [place] [phone] Linda Diaz MD [facility] [place] [address] 03/03/2024 4:00 PM EST Routine Obstetrics and Gynecology at [place] [phone] Linda Diaz MD [facility] [place]NAL [place] [address] 03/03/2024 4:30 PM EST Scheduled View Only Obstetrics [place] [address] 03/12/2024 10:45 AM EST Office Visit Endocrinology at [place] [phone] James Barth DO [facility] [place] [address] 05/23/2024 [place] [phone] Maite Malloy MD [facility] DR OBSTETRICS [place] [address] documented as of this encounter Procedures Procedure [...] FILM LIBRARY ORD ERABLES Performing Organization Address City/State[facility] Co de Phone Number [place], [place] documented in this encounter Visit Diagnoses Not on filedocumented in this encounter Care Teams Meter Tester Relationship Specialty Start Date End Date Valencia Adhikari APRN [address] [place] [address] PCP - General 04/21/14 07/04/23 documented as of this encounter
--- OUTSIDE RECORDS SUMMARY | 2024-02-21 14:48 | XMS_ITS | Encounter Summary ---
Author Organization [facility]ly [facility] [place] [address] Care Team Providers Care Cutting Machine Tender Decorative Name Role Phone Valencia Adhikari APRN Primary Care Provider +1 [phone] Reason for Visit * Reason Comments Other Encounter Details Date Type Department Care Team (Late st Contact Info) Description 04/01/2015 Telephone Obstetrics [place] [phone] Pam Chaidez MOTOR DRIVER [facility] OBSTETRICS [place] [address] Social History Tobacco Use Types Packs/Day Years [...] 03/03/2024 3:00 PM EST Appointment Radiology at [place] [phone] Linda Diaz MD [facility] [place] [address] 03/03/2024 4:00 PM EST Routine Obstetrics and Gynecology at [address]1000 Linda Diaz MD [facility] [place] [address] 03/03/2024 4:30 PM EST Scheduled View Only Obstetrics and Gynecology at [address]1000 03/12/2024 10:45 AM EST Office Visit Endocrinology at [address]1000 James Barth DO [facility] [place] [address] 05/23/2024 [facility] [phone] Maite Malloy MD [facility] OBSTETRICS [place] [address] documented as of this encounter Visit Diagnoses Not on filedocumented in this encounter Care Teams Cutting Machine Tender Decorative Relationship Specialty Start Date End Date Valencia Adhikari APRN [address] [place] [address] PCP - General 04/21/14 07/04/23 documented as of this encounter
--- OUTSIDE RECORDS SUMMARY | 2024-02-21 14:48 | XMS_ITS | Encounter Summary ---
Author Organization [facility] [place] [address] Care Team Providers Care Firer Retort Name Role Phone Valencia Adhikari APRN Primary Care Provider +1 [phone] Encounter Details Date Type Department Care Team (Late st Contact Info) Description 04/01/2015 9:00 AM EST Office Visit Obstetrics [place] [phone] Pam Chaidez APRN [facility] OBSTETRICS [place] [address] Nipple discharge in female (Primary Dx); Possible [...] encounter Progress Notes * Анна, Pam M, BAR MACHINE OPERATOR - 04/01/2015 8:45 AM EST REASON FOR [...] was removed without difficulty and as per deli cook instructions. Pt tolerated the procedure well. The [...] due to sexual history. Await results. PAM CAHIDEZ APRN 04/01/2015 documented in this encounter Plan of Treatment Upcoming Encounters Date Type Department Care Team (Late st Contact Info) Description 03/03/2024 3:00 PM EST Appointment [place] [phone] Linda Diaz MD [facility] MATERNAL [place] [address] 03/03/2024 4:00 PM EST Routine Obstetrics [place] [address] Linda Diaz MD [facility] DR MATERNAL [place] [address] 03/03/2024 4:30 PM EST Scheduled View Only Obstetrics [place] [phone] 03/12/2024 10:45 AM EST Office Visit [place] [phone] James Barth DO [facility] DR ENDOCRIN[place] [address] 05/23/2024 Hospital [place] [phone] Maite Malloy MD [facility] DR OBSTETRICS [place] [address] documented as of this encounter Procedures Procedure [...] AM EST) GC Gene Amp Negative Negative [facility] Comment: The only FDA approved specimen types for this assay are cervix, vagina, urethra and urine. ??The sensitivity and specificity of the assay for other specimen types has not been determined. GC Source Urine HANNAH SERRANO Chlamydia Gene Amp Negative Negative [facility] Comment: The only FDA approved specimen types for this assay are cervix, vagina, urethra and urine. ??The sensitivity and specificity of the assay for other specimen types has not been determined. Chlm Source Urine HANNAH SERRANO Urine specimen (specimen) 04/01/2015 10:09 AM EST 04/01/2015 10:19 AM EST Narrative Resulting Agency Comment Spec In Lab Richard Faust MD MICROBIOLOGY - GENER AL ORDERABLES HANNAH SERRANO * Beta HCG, quantitative (04/01/2015 10:02 AM EST) Beta Human Chorionic Gonadotropin, Quantitative <1 mlU/ML HANNAH SERRANO Comment: REFERENCE RANGES NON- FEMALE: ??Less [...] - 55,868 ?18 weeks ? 8,099 - 58,176 Blood specimen (specimen) 04/01/2015 10:02 AM EST 04/01/2015 10:15 AM EST Narrative Resulting Agency Comment Spec In Lab Richard Faust MD CHEMISTRY ORDERABLES HANNAH HARKINSENNIUM * Prolactin (04/01/2015 10:02 AM EST) Prolactin 21.1 4.8 - 23.3 ng/mL [facility] Blood specimen (specimen) 04/01/2015 10:02 AM EST 04/01/2015 10:15 AM EST Narrative Resulting Agency Comment Spec In Lab Richard Faust MD CHEMISTRY ORDERABLES [facility] * POCT urine (04/01/2015) POC Urine HCG [...] disease documented in this encounter Care Teams Firer Retort Relationship Specialty Start Date End Date Valencia Adhikari APRN [address] [place] [address] PCP - General 04/21/14 07/04/23 documented as of this encounter
--- OUTSIDE RECORDS SUMMARY | 2024-02-21 14:48 | XMS_ITS | Encounter Summary ---
Author Organization [facility] [place] [address] Care Team Providers Care Ultrasound Technologist Name Role Phone Valencia Adhikari APRN Primary Care Provider +1 [phone] Reason for Visit * Reason Comments Follow-up string check Encounter Details Date Type Department Care Team (Late st Contact Info) Description 04/11/2016 9:20 AM EST Office Visit Obstetrics [place] [address] Pam Chaidez APRN [facility] OBSTET[place] [address] IUD check up (Primary Dx) Social History [...] Vulva: No lesions. Normal hair distribution. Vagina: Aneth, moist, rugated. Normal discharge noted. No lesions. [...] 03/03/2024 3:00 PM [place] [address] Linda Diaz MD [facility] [place] [address] 03/03/2024 4:00 PM EST Routine Obstetrics and Gynecology at [address]1000 Linda Diaz MD [facility] DR MATERNAL [place] [address] 03/03/2024 4:30 PM EST Scheduled View Only Obstetrics and Gynecology at [address]1000 03/12/2024 10:45 AM EST Office Visit Endocrinology at [place] [address] James Barth DO [facility] [place] [address] 05/23/2024 Hospital Encounter Birthing [place] [phone] Maite Malloy MD [facility] DR OBSTET[place] [address] documented as of this encounter Visit Diagnoses Diagnosis IUD check up- Primary Surveillance of previously prescribed intrauterine contraceptive device documented in this encounter Care Teams Ultrasound Technologist Relationship Specialty Start Date End Date Valencia Adhikari APRN [address] [place] [address] PCP - General 04/21/14 07/04/23 documented as of this encounter
--- OUTSIDE RECORDS SUMMARY | 2024-02-21 14:48 | XMS_ITS | Encounter Summary ---
Author Organization [facility] Address [facility] [place] [address] Care Team Providers Care Help Desk Rep Name Role Phone None Primary Care Provider Unavailabl e Reason for Visit * Reason Comments Abdominal Pain abd pain and back pa in worse today Encounter Details Date Type Department Care Team (Latest Contact Info) Description 09/08/2012 3:03 PM EDT - 09/08/2012 6:56 PM EDT Hospital Encounter Birthing [place] [address] Katelynn Lawton MD [facility] OBSTETRICS [place] [address] Discharge Disposition: Home Social History Tobacco Use [...] Lawton MD - 09/08/2012 4:01 PM EDT [facility] Triage Visit Name: Andree Hummel MR#: [id number] Date of Visit: 09/08/2012 Time: 4:01 PM CC: back pain and pelvic pressure HPI: Andree is a 22 y.o. y with Estimated Date of Delivery: 11/12/12 at 30w5d gestation complaining of back pain. Of note, she was admitted to [facility] with contractions. During that admission her cervix [...] by mouth nightly. 30 tablet 2 ??? ipaqhcidsw-kzkqsrdpzfizy-qxhegeoc (FIORICET, ESGIC) per tablet Take 1 tablet [...] Present Decelerations: occasional variable decels. Variability: Moderate [place]: contractions every 1-4 minutes irregular. Labs: Component [...] 03/03/2024 3:00 PM EST Appointment [place] [phone] Linda Diaz MD [facility] [place] [address] 03/03/2024 4:00 PM EST Routine Obstetrics [place] [address] Linda Diaz MD [facility] [place] [address] 03/03/2024 4:30 PM EST Scheduled View Only Obstetrics [place] [address] 03/12/2024 10:45 AM EST Office Visit [place] [address] James Barth DO [facility] [place] [address] 05/23/2024 Hospital [place] [phone] Maite Malloy MD [facility] DR OBSTET[place] [address] documented as of this encounter Procedures Procedure [...] Urine Dipstick Hazy(A) Clear CERNER MILLENNIUM Specific [place] Urine Automated 1.009 1.002 - 1.030 CERNER [...] In Lab Katelynn Lawton MD URINE ORDERABLES [facility] MILLENNIUM documented in this encounter Visit Diagnoses Not on filedocumented in this encounter Care Teams Help Desk Rep Relationship Specialty Start Date End Date None None PCP - General 05/08/12 04/20/14 documented as of this encounter
--- OUTSIDE RECORDS SUMMARY | 2024-02-21 14:48 | XMS_ITS | Encounter Summary ---
Author Organization [facility] Address [facility] [place] [address] Care Team Providers Care Wrapper Dipper Name Role Phone Valencia Adhikari APRN Primary Care Provider +1 -[phone] Encounter Details Date Type Department Care Team (Latest Contact Info) Description 09/20/2014 - 09/20/2014 11:59 PM EDT Hospital Encounter Radiology Library at [facility] [place] [place] [phone] Kedar Santos MD [facility] [place] [address] Discharge Disposition: Home Social History Tobacco Use [...] 03/03/2024 3:00 PM EST Appointment [place] [address] Linda Diaz MD [facility] [place] [address] 03/03/2024 4:00 PM EST Routine Obstetrics and Gynecology at [address]1000 Linda Diaz MD [facility] [place] [address] 03/03/2024 4:30 PM EST Scheduled View Only Obstetrics and Gynecology at [place] [phone] 03/12/2024 10:45 AM EST Office Visit Endocrinology at [address]1000 James Barth DO [facility] DR [place] [address] 05/23/2024 Hospital Encounter Birthing [place] [phone] Maite Malloy MD [facility] OBSTETRICS [place] [address] documented as of this encounter Procedures Procedure Name Priority Date/Time Associated Diagnosis Comments FILM LIBRARY STORAGE ONLY DX ELBOW Routine 09/20/2014 12:00 AM EDT documented in this encounter Results * Film Library- Storage Only DX Elbow (09/20/2014 12:00 AM EDT) Narrative RAD - 05/17/2017 11:27 AM EST This exam is for storage only and is auto-finalizing. Kedar Santos MD IMG FILM LIBRARY ORD ERABLES [place], [place] documented in this encounter Visit Diagnoses Not on filedocumented in this encounter Care Teams Wrapper Dipper Relationship Specialty Start Date End Date Valencia Adhikari, WAISTBAND SETTER LOCKSTITCH [address] [place] [address] PCP - General 04/21/14 07/04/23 documented as of this encounter
--- OUTSIDE RECORDS SUMMARY | 2024-02-21 14:48 | XMS_ITS | Encounter Summary ---
Author Organization [facility] [place] [address] Care Team Providers Care Machine Binder Stripper Name Role Phone None Primary Care Provider Unavailabl e Reason for Visit * Reason Onset Date Comments Triage 04/17/2014 Encounter Details Date Type Department Care Team (Late st Contact Info) Description 04/17/2014 Telephone Orthopaedics at [facility] [place] [phone] Omayra [place], undercover cop Social History Tobacco Use Types Packs/Day Years [...] Received 6 pages of office notes from [facility], for the patients upcoming appointment. List what was rec'd. ED NOTES XR RESULTS * Telephone Encounter - Omayra Schroeder RN - 04/17/2014 1:58 PM EST Appropriate for AP or Gen Ortho. * Telephone Encounter - Taty Browne - 04/17/2014 10:36 AM EST Ask the patient to verify the following: Full Name: Andree UnderwoodWilliams : 1990 Phone number: [phone] (home) Mailing address: [address] [place] [phone] Age: 23 y.o. Mom states patient was trying to move out of the way of a car and slipped and possibly hit her kneeoff a guardrail. She was seen in [facility] ED and was told she probably has a meniscus tear and needs tofollow up with Ortho. Mom states she works here. Please call her as her daughter is not available. Her name is Carmina and her number is [phone]. Appointment date: TBD Appointment is with: TBD [...] X-rays: Yes - When? Where? Notes: 04/15/14 [place], [place] PH: [phone] FAX: [phone] IMG PUSH SEEN IN THEIR ED THIS [...] to your next appointment. Advance Directive pilot supervisor: New patient with knee pain under age of 56. MyD Do you have a [facility] account? No - Patient Declined - MOM BOOKED documented in this encounter Plan of Treatment Upcoming Encounters Date Type Department Care Team (Late st Contact Info) Description 03/03/2024 3:00 PM EST Appointment Radiology at [place] [phone] Linda Diaz MD [facility] [place] [address] 03/03/2024 4:00 PM EST Routine Obstetrics and Gynecology at [address]1000 Linda Diaz MD [facility] [place] [address] 03/03/2024 4:30 PM EST Scheduled View Only Obstetrics and Gynecology at [place] [phone] 03/12/2024 10:45 AM EST Office Visit Endocrinology at [address]1000 James Barth DO [facility] [place] [address] 05/23/2024 Hospital Encounter Birthing [place] [phone] Maite Malloy MD [facility] OBSTETRICS [place] [address] documented as of this encounter Visit Diagnoses Not on filedocumented in this encounter Care Teams Machine Binder Stripper Relationship Specialty Start Date End Date None None PCP - General 05/08/12 04/20/14 documented as of this encounter
--- OUTSIDE RECORDS SUMMARY | 2024-02-21 14:48 | XMS_ITS | Encounter Summary ---
Author Organization [facility] Address [facility] [place] [address] Care Team Providers Care Breaster Name Role Phone Valencia Gomez APRN Primary Care Provider [phone] Reason for Visit * Reason Comments Headache Dizziness * Consultation (Routine) - Closed Specialty Diagnoses / Procedures Referred By Contac t Referred To Contact Neurology Diagnoses headaches Valencia Gomez APRN [address] [place] [address] [facility] Neurology [address] [place] [phone] Referral ID Status Reason Start Date Expiration Date V isits Requested Visits Authorized [id number] Closed Consult, [facility] 12/13/2015 12/12/2016 1 1 Encounter Details Date Type Department Care Team (Late st Contact Info) Description 12/21/2015 8:30 AM EDT Office [place] [phone] Neo Pleitez MD [facility] [place] [address] Evelyn Pelayo MD [address] [place] [id number] Migraine with vertigo; Intractable chronic migraine without [...] diary to the next appointment. 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 Prg somatosensory test, any/all per. nerves, trunk or head 03/22/2011 FACIAL NERVE MONITORING, SETUP performed by JUAN ESPARZA at [facility] MAIN OR ??? [place] tooth extraction ??? Upper gastrointestinal endoscopy for IBS, celiac excluded ??? Colonoscopy found polyps ??? Tonsillectomy 2010 Social History: Social History Social History ??? Marital status: Single Spouse name: N/A ??? Number of children: 0 ??? 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 Smoking status: [...] since it works well. Patient was given [employer] handouts about her headache condition [...] 03/03/2024 3:00 PM EST Appointment Radiology at [place] [phone] Linda Diaz MD [facility] [place] [address] 03/03/2024 4:00 PM EST Routine Obstetrics and Gynecology at [place] [phone] Linda Diaz MD [facility] [place] [address] 03/03/2024 4:30 PM EST Scheduled View Only Obstetrics and Gynecology at [place] [phone] 03/12/2024 10:45 AM EST Office [place] [phone] James Barth DO [facility] [place] [address] 05/23/2024 Hospital [place] [phone] Maite Malloy MD [facility] DR OBSTETRICS [place] [address] documented as of this encounter Procedures Procedure Name Priority Date/Time Associated Diagnosis Comments URINE, QUALITATIVE Routine 12/21/2015 11:36 AM EDT Migraine with vertigo Intractable chronic migraine without aura and without status migrainosus documented in this encounter Results * urine, qualitative (12/21/2015 11:36 AM EDT) Specific [place] Urine Non-automated 1.017 1.002 - 1.030 [facility] Human Chorionic Gonadotropin Qualitative, Urine Negative [facility] Comment: If Specific [place] is less than 1.010, a negative result is obtained, and is still suspected, a repeat on a first morning specimen is recommended. Urine specimen (specimen) 12/21/2015 11:36 AM EDT 12/21/2015 12:08 PM EDT Narrative Resulting Agency Comment Spec In Lab Evelyn Pelayo MD URINE ORDERABLES [facility] [place] [address] documented in this encounter Visit Diagnoses Diagnosis Migraine with vertigo Migraine with aura, without mention of intractable migraine without mention of status migrainosus Intractable chronic migraine without aura and without status migrainosus Chronic migraine without aura, with intractable migraine, so stated, without mention of status migrainosus documented in this encounter Care Teams Breaster Relationship Specialty Start Date End Date Valencia Gomez APRN [address] [place] [address] PCP - General 04/21/14 07/04/23 documented as of this encounter
--- OUTSIDE RECORDS SUMMARY | 2024-02-21 14:48 | XMS_ITS | Encounter Summary ---
Author Organization [facility] [place] [address] Care Team Providers Care Bottle Labeler Name Role Phone None Primary Care Provider Unavailabl e Encounter Details Date Type Department Care Team (Late st Contact Info) Description 12/20/2012 External Results [place] [phone] Griffin Wallis III, MD [facility] [place] [address] Hypothyroidism Social History Tobacco Use Types Packs/Day [...] 03/03/2024 3:00 PM [place] [address] Linda Diaz MD [facility] [place] [address] 03/03/2024 4:00 PM EST Routine Obstetrics [place] [address] Linda Diaz MD [facility] [place] [address] 03/03/2024 4:30 PM EST Scheduled View Only Obstetrics and Gynecology at [place] [phone] 03/12/2024 10:45 AM EST Office Visit Endocrinology at [address] James Barth DO [facility] [place] [address] 05/23/2024 Hospital Encounter Birthing [place] [phone] Maite Malloy MD [facility] DR [place] [address] documented as of this encounter Procedures Procedure Name Priority Date/Time Associated Diagnosis Comments TSH Routine 12/12/2012 Hypothyroidism documented in this encounter Results * (ABNORMAL) TSH (12/12/2012) Thyroid Stimulating Hormone 0.15(EXTER NAL/ABN) Blood specimen (specimen) Griffin Wallis III, MD CHEMISTRY ORDER AMANDA documented in this encounter Visit Diagnoses Diagnosis Hypothyroidism Unspecified hypothyroidism documented in this encounter Care Teams Bottle Labeler Relationship Specialty Start Date End Date None None PCP - General 05/08/12 04/20/14 documented as of this encounter
--- OUTSIDE RECORDS SUMMARY | 2024-02-21 14:48 | XMS_ITS | Encounter Summary ---
Author Organization [facility] [place] [address] Care Team Providers Care Data Analysis Manager Name Role Phone Valencia Adhikari APRN Primary Care Provider [phone] Reason for Visit * Reason Comments Follow-up IUD consult, inserti on Encounter Details Date Type Department Care Team (Late st Contact Info) Description 03/14/2016 10:00 AM EST Office Visit Obstetrics [place] [address] Pam Chaidez APRN [facility] OBSTETRICS [place] [address] Encounter for IUD insertion (Primary Dx); IUD [...] this encounter Progress Notes * Pam Chaidez, [employer]CTION WORKER - 03/14/2016 10:00 AM EST REASON FOR [...] NECK DISSECTION performed by JUAN ESPARZA at [facility] MAIN OR ??? Prg somatosensory test, any/all per. nerves, trunk or head 03/22/2011 FACIAL NERVE MONITORING, SETUP performed by JUAN ESPARZA at [facility] MAIN OR ??? [place] tooth extraction ??? Upper gastrointestinal endoscopy for [...] 03/03/2024 3:00 PM EST [place] [phone] Linda Diaz MD [facility] [place]NAL [place] [address] 03/03/2024 4:00 PM EST Routine Obstetrics [place] [phone] Linda Diaz MD [facility] [place] [address] 03/03/2024 4:30 PM EST Scheduled View Only Obstetrics [place] [address] 03/12/2024 10:45 AM EST Office [place] [phone] James Barth DO [facility] [place] [address] 05/23/2024 Hospital [place] [phone] Maite Malloy MD [facility] DR OBSTETRICS [place] [address] Scheduled Orders Name Type Priority Associated Diagnoses [...] AM EST) GC Gene Amp Negative Negative [facility] Comment: The only FDA approved specimen types for this assay are cervix, vagina, urethra and urine. GC Source Urine [facility] Chlamydia Gene Amp Negative Negative [facility] Comment: The only FDA approved specimen types for this assay are cervix, vagina, urethra and urine. Chl Source Urine [facility] Urine specimen (specimen) 03/14/2016 10:38 AM EST 03/14/2016 12:09 PM EST Narrative Resulting Agency Comment Spec In Lab Richard Faust MD MICROBIOLOGY - GENER AL ORDERABLES [facility] [place] [address] documented in this encounter Visit Diagnoses Diagnosis [...] Uterine Device, Intrauterine, ONCE, 1 dose, On Sun03/14/16 at 1100, Routine Inserted 03/14/2016 10:38 AM EST 1 Intra Uterine Device 20-Other (document in comment section) documented in this encounter Care Teams Data Analysis Manager Relationship Specialty Start Date End Date Valencia Adhikari APRN [address] [place] [address] PCP - General 04/21/14 07/04/23 documented as of this encounter
--- OUTSIDE RECORDS SUMMARY | 2024-02-21 14:48 | XMS_ITS | Encounter Summary ---
Author Organization [facility] Address [facility] [place] [address] Care Team Providers Care Process Supervisor Name Role Phone None Primary Care Provider Unavailabl e Encounter Details Date Type Department Care Team (Late st Contact Info) Description 04/15/2014 Orders [place] [phone] Joshua Padron MD [facility] [place] [address] Social History Tobacco Use Types Packs/Day Years [...] 03/03/2024 3:00 PM [place] [address] Linda Diaz MD [facility] [place] [address] 03/03/2024 4:00 PM EST Routine Obstetrics [place] [address] Linda Diaz MD [facility] [place] [address] 03/03/2024 4:30 PM EST Scheduled View Only Obstetrics [place] [address] 03/12/2024 10:45 AM EST Office [place] [address] James Barth DO [facility] [place] [address] 05/23/2024 [place] [address] Maite Malloy MD [facility] DR OBSTET[place]ICS [place] [address] documented as of this encounter Procedures Procedure [...] on filedocumented in this encounter Care Teams Process Supervisor Relationship Specialty Start Date End Date None None PCP - General 05/08/12 04/20/14 documented as of this encounter
--- OUTSIDE RECORDS SUMMARY | 2024-02-21 14:48 | XMS_ITS | Encounter Summary ---
Author Organization [facility] [place] [address] Care Team Providers Care Pattern And Chain Maker Name Role Phone None Primary Care Provider Unavailabl e Reason for Visit * Reason Onset Date Comments Labs Only 11/14/2012 Encounter Details Date Type Department Care Team (Late st Contact Info) Description 11/14/2012 Telephone Endocrinology at [facility] [place] [phone] Omayra Meredith LPN Labs Only Social History [...] to have lab order to go to [facility]. TSH order electronically faxed. Patient told that if when she arrives at lab order is not they should not leave but ask lab to call us. Patient agrees with plan of care. documented in this encounter Plan of Treatment Upcoming Encounters Date Type Department Care Team (Late st Contact Info) Description 03/03/2024 3:00 PM EST Appointment Radiology at [address] Linda Diaz MD [facility] DR MATERNAL [place] [address] 03/03/2024 4:00 PM EST Routine Obstetrics and Gynecology at [place] [phone] Linda Diaz MD [facility] MATERNAL [place] [address] 03/03/2024 4:30 PM EST Scheduled View Only Obstetrics and Gynecology at [place] [phone] 03/12/2024 10:45 AM EST Office Visit Endocrinology at [address] James Barth DO [facility] DR [place] [address] 05/23/2024 Hospital Encounter Birthing [place] [phone] Maite Malloy MD [facility] DR OBSTETRICS [place] [address] documented as of this encounter Results * (ABNORMAL) TSH (12/12/2012) Thyroid Stimulating Hormone 0.15(EXTER NAL/ABN) Blood specimen (specimen) Griffin Wallis III, MD CHEMISTRY ORDER AMANDA documented in this encounter Visit Diagnoses Diagnosis Hypothyroidism- Primary Unspecified hypothyroidism documented in this encounter Care Teams Pattern And Chain Maker Relationship Specialty Start Date End Date None None PCP - General 05/08/12 04/20/14 documented as of this encounter
--- OUTSIDE RECORDS SUMMARY | 2024-02-21 14:48 | XMS_ITS | Encounter Summary ---
Author Organization [facility] Address [facility] [place] [address] Care Team Providers Care Rivet Bucker Name Role Phone None Primary Care Provider Unavailabl e Reason for Visit * Reason Comments Laboring Encounter Details Date Type Department Care Team (Latest Contact Info) Description 09/13/2012 12:09 AM EDT - 09/14/2012 12:06 PM EDT [place] [phone] Mely Mccord MD [facility] [place] [address] Hypothyroidism (Primary Dx); Abnormal antibody titer; Depression; [...] V RN - 09/14/2012 11:38 [place] [address] [facility] to contact OB doctor [phone] to contact family doctor to contact director social welfare Andree Wallis-Tamara @ 09/14/12 @ 11:37 AM Following your visit to [facility] Triage Reason for Visit: Chief [...] a vaginal exam in your doctor's or director social welfare's office you should not bleed as much as a period You have noticed a marked decrease in your baby's movement refer to your kick count instructions in the Your Journey book Your baby should move at least 10 times in 2 hours You have had any direct trauma to your abdomen such as a car accident, fall, or impact Call your doctor or director social welfare if you have the following symptoms: Headache [...] dehydratio Keep your regularly scheduled doctor or director social welfare appointment Your medications: Current Facility-Administered Medications on [...] by mouth nightly. 30 tablet 2 ??? 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 Managed by endocrine. 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 Managed by endocrine. Synthroid dose recently increased from 200mcg QD to 250mcg QD as TSH was most recently 34.90. Continue 250mcg QD. Repeat TSH planned for 10/05/12 - 1 month after dose change. 2. Marijuana use - urine tox positive, as it has been throughout Mely Klein MD PGY-4 #[id number] * Valencia Meehan RN - 09/13/2012 10:32 [...] Office of Care Management (OCM) / Clinical Customer Pricing Manager (CRC)/ Initial Assessment Discussed patient with Provider [...] with FOB off. Loss of job.Seen by SIGN LANGUAGE INSTRUCTOR 7 days ago during last admission. Referred again for social work support. ADVANCE DIRECTIVES: None HEALTH /PRESCRIPTION COVERAGE: Health Plans, [facility] Under her mother's plan CURRENT HOME/COMMUNITY SERVICES/EQUIPMENT: DME: None Home Health Agency: Connected with [facility]. Referred to [facility] for childbirth education, and free food,diapers, car seat assistance. Other: N/A SIGN LANGUAGE INSTRUCTOR REFERRAL: Notified SIGN LANGUAGE INSTRUCTOR - for Support/Financial/Medication Assistance; See SIGN LANGUAGE INSTRUCTOR notes for further needs. PRIMARY CARE PHYSICIAN: None None None POTENTIAL DISCHARGE NEEDS: Education. ? 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 Managed by endocrine. Synthroid dose recently increased from 200mcg QD to 250mcg QD as TSH was most recently 34.90. Continue 250mcg QD. Repeat TSH planned for 10/05/12 - 1 month after dose change. 2. Marijuana use - urine tox positive, as it has been throughout Mely Klein MD PGY-4 #[id number] MFM attending note I saw and evaluated [...] notified and RN redirected to Programer at [phone]. Pt accepted into e[facility] at 0500 and [...] Provider (if early referral or co-managed by [facility]): [facility] Chief Complaint: Andree Hummel was admitted [...] Post-surgical hypothyroidism: follicular adenoma removed 03/2011 at [facility]. Managed by endocrine. Synthroid dose recently increased [...] NECK DISSECTION performed by JUAN ESPARZA at [facility] OR ??? Somatosensory test, any/all per. nerves, trunk or head 03/22/2011 FACIAL NERVE MONITORING, SETUP performed by JUAN ESPARZA at [facility] OR ??? [place] tooth extraction ??? Upper gastrointestinal endoscopy for [...] by mouth nightly. 30 tablet 2 ??? 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 Managed by endocrine. Synthroid dose recently increased [...] Mccord MD Discharge Summary Antepartum Care Provider: [facility] Referring Provider if applicable: n/a Discharge Diagnoses (Hospital Problems) and Secondary Diagnoses (Chronic Problems): Active Hospital Problems Diagnoses ??? Threatened labor, antepartum ??? , supervision of, high-risk Team [facility] transfer of care from [facility] Delivery plan GBS date & Result [...] care. ??? , supervision of, high-risk Team [facility] transfer of care from [facility] Delivery plan GBS date & Result [...] Andree WallisYasir is a 22 y.o. 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 Managed by endocrine. Synthroid dose recently increased [...] 09/05/2012, Until Discontinued, Disp-30 tablet, R-2, Normal lvyxpdwyll-urnoqjecwppnx-ounjwnom (FIORICET, ESGIC) per tablet Take 1 tablet [...] NECK DISSECTION performed by JUAN ESPARZA at [facility] ??? Somatosensory test, any/all per. nerves, trunk or head 03/22/2011 FACIAL NERVE MONITORING, SETUP performed by JUAN ESPARZA at [facility] ??? [place] tooth extraction ??? Upper gastrointestinal endoscopy for [...] sexual intercourse, long shopping trips. General Instructions [address] to contact OB doctor [phone] to contact family doctor to contact director social welfare Andree Wallis-Tamara @ 09/14/12 @ 11:37 AM Following your visit to [facility] Triage Reason for Visit: Chief [...] a vaginal exam in your doctor's or director social welfare's office you should not bleed as much as a period You have noticed a marked decrease in your baby's movement refer to your kick count instructions in the Your Journey book Your baby should move at least 10 times in 2 hours You have had any direct trauma to your abdomen such as a car accident, fall, or impact Call your doctor or director social welfare if you have the following symptoms: Headache [...] dehydratio Keep your regularly scheduled doctor or director social welfare appointment Your medications: Current Facility-Administered Medications on [...] by mouth nightly. 30 tablet 2 ??? lxjnlrqhnn-yetcpckhmrucq-zdhdsjiw (FIORICET, ESGIC) per tablet Take 1 tablet [...] Yaneth Griffith MD Psychiatry and Behavioral Health [phone] [facility] Joint Appt Questionnaire Five D Res-Psych LEB 5D [phone] [facility] Referrals:none MELY KLEIN MD 09/15/2012 Cc: * Miscellaneous - Provider, Scanning - 09/13/2012 3:59 PM EDT documented in this encounter Plan of Treatment Upcoming Encounters Date Type Department Care Team (Late st Contact Info) Description 03/03/2024 3:00 PM [place] [phone] Linda Diaz MD [facility] [place] [address] 03/03/2024 4:00 PM EST Routine Obstetrics [place] [phone] Linda Diaz MD [facility] [place] [address] 03/03/2024 4:30 PM EST Scheduled View Only Obstetrics [place] [address] 03/12/2024 10:45 AM EST Office Visit Endocrinology [place] [phone] James Barth DO [facility] [place] [address] 05/23/2024 Hospital Encounter Birthing [facility] [place] [phone] Maite Malloy MD [facility] DR OBSTETRICS [place] [address] documented as of this encounter Procedures Procedure [...] PM EDT) Oral Glucose Dose 50 gm CERNER TORINENNIUM Blood specimen (specimen) 09/13/2012 4:15 PM EDT 09/13/2012 4:23 PM EDT Mely Mccord MD CHEMISTRY ORDERABLES Performing Organization Address City/[facility]/ZIP Co de Phone Number HANNAH HARKINSENNIUM * Gluc 1 Hr (09/13/2012 4:15 PM EDT) Glucose 1 hour 83 mg/dL CERNE R TORINENNIUM Blood specimen (specimen) 09/13/2012 4:15 PM EDT 09/13/2012 4:23 PM EDT Narrative Resulting Agency Comment Spec In Lab Mely Mccord MD CHEMISTRY ORDERABLES Performing Organization Address City/State/[facility] Co de Phone Number CERSWETA HARKINSENNIUM * [...] Gran % 0.30 0.00 - 0.66 % HANNAH HARKINSENNIUM Comment: Immature granulocytes(IG's)percentage and absolute count will include metamyelocytes, myelocytes, and promyelocytes. Blood smears from CBCs yielding IG's will be scanned manually for concordance. If this scan disagrees with the automated IG or if promyelocytes are noted, a manual differential will be performed. Immature Gran Absolute 0.03 0.00 - 0.05 x10(3)/mc L HANNAH POTTERIUM Blood specimen (specimen) 09/13/2012 5:00 AM EDT 09/13/2012 6:11 AM EDT Mely Mccord MD HEMATOLOGY ORDERABLE S HANNAH POTTERIUM * Scan, Peripheral Blood (09/13/2012 5:00 AM EDT) Plat estimate Decreased HANNAH POTTERIUM RBC Morphology Abnormal CERNE R MILLENNIUM Macrocyte 1-5 /HPF CERNER TORINENNIUM Plat, Giant Less than 1 /HPF HANNAH POTTERIUM Blood specimen (specimen) 09/13/2012 5:00 AM EDT 09/13/2012 6:11 AM EDT Narrative Resulting Agency Comment Spec In Lab Mely Mccord MD HEMATOLOGY ORDERABLE S Performing Organization Address City/[facility]/ZIP Co de Phone Number HANNAH POTTERIUM * Antibody screen (09/13/2012 5:00 AM EDT) Ab Screen Interp Negative HANNAH HARKINSENNIUM Expires at 2359 on: [id number] HANNAH POTTERIUM [...] MD BLOOD BANK LAB ORDER AMANDA HANNAH SERRANO * (ABNORMAL) Rapid Qual Drug Screen, Urine ([facility]) (09/13/2012 5:00 AM EDT) TIFFANIE Marijuana Metabolites Screen Presumptive Pos(A) None Detected CERSWETA POTTERIUM Comment: The marijuana metabolites screen detects the THC Metabolite (12-epw-4-carboxy- 9-THC) at concentrations >50 ng/mL. Qualitative Drug screens are reported as None Detected or Presumptive Positive as the results are not routinely confirmed by highly-specific methods. As with any screen occasional false positive results from cross-reacting substances can occur. Not for Medico-Legal Purposes. Phencyclidine Screen, Urine None Detected None Detected HANNAH HARKINSENNIUM Comment: The phencyclidine screen detects phencyclidine at concentrations >25 ng/mL. Qualitative Drug screens are reported as None Detected or Presumptive Positive as the results are not routinely confirmed by highly-specific methods. As with any screen occasional false positive results from cross-reacting substances can occur. Not for Medico-Legal Purposes. TIFFANIE Cocaine Metabolites Screen None Detected None Detected CERSWETA HARKINSENNIUM Comment: The cocaine metabolites screen detects benzoylecgonine (Cocaine Metabolite) at concentrations >150 ng/mL. Qualitative Drug screens are reported as None Detected or Presumptive Positive as the results are not routinely confirmed by highly-specific methods. As with any screen occasional false positive results from cross-reacting substances can occur. Not for Medico-Legal Purposes. Methamphetamines Screen, Urine None Detected None Detected CERSWETA HARKINSENNIUM Comment: The methamphetamine screen detects d-methamphetamine at [...] occur. Not for Medico-Legal Purposes. TIFFANIE Methadone Screen None Detected None Detected CERNER MILLENNIUM Comment: The methadone screen detects methadone at concentrations >200 ng/mL. Qualitative Drug screens are reported as None Detected or Presumptive Positive as the results are not routinely confirmed by highly-specific methods. As with any screen occasional false positive results from cross-reacting substances can occur. Not for Medico-Legal Purposes. TIFFANIE Barbiturates Screen Presumptive Pos(A) None Detected [...] Propoxyphene Screen, Urine None Detected None Detected CERSWETA MILLENNIUM Comment: The propoxyphene screen detects propoxyphene [...] In Lab Mely Mccord MD URINE ORDERABLES [facility] * (ABNORMAL) Rubella Antibody, IgG (09/13/2012 5:00 AM EDT) Rubella Antibody IgG Negative( A) Positive HANNAH SERRANO Comment: Please note: ??A positive result for this assay indicates that antibody levels are >or= 10.0 IU/mL and is considered to be an indicator of positive immune status. Blood specimen (specimen) 09/13/2012 5:00 AM EDT 09/13/2012 6:11 AM EDT Narrative Resulting Agency Comment Spec In Lab Mely Mccord MD CHEMISTRY ORDERABLES Performing Organization Address [facility] Co de Phone Number HANNAH SERRANO * (ABNORMAL) CBC (with Diff) (09/13/2012 5:00 AM EDT) White Blood Cell 10.1(H) 4.0 - 10.0 [...] MD HEMATOLOGY ORDERABLE S Performing Organization Address City/[facility] Co de Phone Number HANNAH SERRANO [...] AM EDT 4 mg vitamin 27 & vcaorhr-ceaw-KD 60 mg iron-1 mg tablet Tab 1 [...] Carmen Cisneros RN)0615 (Due) vitamin 27 & ukvlyos-kpho-PS 60 mg iron-1 mg tablet Tab 1 [...] Nausea, Routine 1120 (Given - Provider: Tavia Chan, TRE)1930 (Given - Provider: Tavia Chan, TRE) documented in this encounter Care Teams Rivet Bucker Relationship Specialty Start Date End Date None None PCP - General 05/08/12 04/20/14 documented as of this encounter
--- OUTSIDE RECORDS SUMMARY | 2024-02-21 14:49 | XMS_ITS | Encounter Summary ---
Author Organization [facility] [place] [address] Care Team Providers Care Engineer/Conductor Name Role Phone None Primary Care Provider Unavailabl e Reason for Visit * Reason Onset Date Comments Medication Refill 05/23/2012 Encounter Details Date Type Department Care Team (Late st Contact Info) Description 05/23/2012 Refill [place] [phone] Griffin Wallis III, MD [facility] [place] [address] Hypothyroidism (Primary Dx) Social History Tobacco Use [...] 03/03/2024 3:00 PM EST Appointment [place] [address] Linda Diaz MD [facility] [place] [address] 03/03/2024 4:00 PM EST Routine Obstetrics and Gynecology at [place] [phone] Linda Diaz MD [facility] [place] [address] 03/03/2024 4:30 PM EST Scheduled View Only Obstetrics and Gynecology at [address] 03/12/2024 10:45 AM EST Office Visit Endocrinology at [place] [address] James Barth DO [facility] [place] [address] 05/23/2024 Hospital Encounter Birthing [place] [phone] Maite Malloy MD [facility] [place] [address] documented as of this encounter Visit Diagnoses Diagnosis Hypothyroidism- Primary Unspecified hypothyroidism documented in this encounter Care Teams Engineer/Conductor Relationship Specialty Start Date End Date None None PCP - General 05/08/12 04/20/14 documented as of this encounter
--- OUTSIDE RECORDS SUMMARY | 2024-02-21 14:49 | XMS_ITS | Encounter Summary ---
Author Organization [facility] [place] [address] Care Team Providers Care Director Regulatory Agency Name Role Phone None Primary Care Provider Unavailabl e Encounter Details Date Type Department Care Team (Late st Contact Info) Description 06/12/2012 Notes Only Obstetrics [place] [address] Marita Anders, [facility] DR OBSTETRICS & [place] [address] Social History Tobacco Use Types Packs/Day Years [...] EST Care Management/Social Work Referral/Contact: Referred by [facility] service for support around substance abuse/mental health. S: I'm a single, unemployed mother. O: Met with patient, Andree (pronounced Sercha), following her US appt. Patient was pleased to have US pictures of her baby, whose gender she does not wish to know. When asked why she thinks she may have been referred to [facility], patient identified that she is single and [...] stated her mother works at [employer] [facility] [employer]. Patient discussed a variety of plans about where she may live. Andree expressed a desire to leave [place], [place], in order to get away from [...] Patient stated that Bryan has been in [facility] since 2010, so there is no chance he is the father. She stated she is getting back together with her fiance (who will be out of [facility] in July 2012), and he wants to adopt the baby. Patient asked many questions about paternity affidavit, parental rights, paternity testing, and adoption. Attempted to answer most of these, and also provided information on [employer] in [facility], and encouraged patient to seek advice of people who understand the legal implications of paternity, including packaging specialist, court system, and DV support agencies. Explained [...] she has an upcoming appt. with an industrial gas servicer. Patient stated with this worry, plus her [...] appeared very familiar with community resources in [facility]. She stated she is involved with [employer] and [employer] already, and has food stamps and WIC. [...] with fiance, who is currently incarcerated in [place]; hx of substance abuse (opiates, cocain e, MJ, ETOH), but reduced use since learning of this (no TIFFANIE done on patient to date); hxof thyroidectomy (? of diagnosis); hx of depression, currently untreated; hx of loss in prior (per record); recent loss of job; concern for homelessness; desire to relocate (givesvarious scenarios, including living with a friend in [place], moving to [place], [place] or other location in [place] (declined list of transitional housing for women), and moving to [place] to livewith aunt and uncle). Strengths include: Some family support; good knowledge of community resources; has accessed food stamps and WIC, and plans to apply for [place] Medicaid as secondary insurance (has application); utilizes food [employer] at [facility] in [facility]; has stopped using opiates, per her [...] Restrictions option for inpatient stay. LEYDI Vicente, CONTACT CENTER SPECIALIST documented in this encounter Plan of Treatment Upcoming Encounters Date Type Department Care Team (Late st Contact Info) Description 03/03/2024 3:00 PM EST [place] [phone] Linda Diaz MD [facility] [place] [address] 03/03/2024 4:00 PM EST Routine Obstetrics [place] [phone] Linda Diaz MD [facility] [place] [address] 03/03/2024 4:30 PM EST Scheduled View Only Obstetrics [place] [address] 03/12/2024 10:45 AM EST Office [place] [address] James Barth DO [facility] ENDOCRINOLOGY DEPT [place], [place] [id number] 05/23/2024 Hospital [place] [address] Maite Malloy MD [facility] DR OBSTETRICS [place] [address] documented as of this encounter Visit Diagnoses Not on filedocumented in this encounter Care Teams Director Regulatory Agency Relationship Specialty Start Date End Date None None PCP - General 05/08/12 04/20/14 documented as of this encounter
--- OUTSIDE RECORDS SUMMARY | 2024-02-21 14:49 | XMS_ITS | Encounter Summary ---
Author Organization [facility] [place] [address] Care Team Providers Care Top Hat Body Maker Name Role Phone None Primary Care Provider Unavailabl e Encounter Details Date Type Department Care Team (Late st Contact Info) Description 05/28/2012 External Results [place] [phone] Provider, Scanning Social History Tobacco Use Types [...] 03/03/2024 3:00 PM [place] [address] Linda Diaz MD [facility] [place] [address] 03/03/2024 4:00 PM EST Routine Obstetrics [place] [phone] Linda Diaz MD [facility] [place] [address] 03/03/2024 4:30 PM EST Scheduled View Only Obstetrics [place] [address] 03/12/2024 10:45 AM EST Office [place] [address] James Barth DO [facility] [place] [address] 05/23/2024 Hospital [place] [address] Maite Malloy MD [facility] OBSTETRICS [place] [address] documented as of this encounter Procedures Procedure Name Priority Date/Time Associated Diagnosis Comments LAB SCAN Routine 05/21/2012 documented in this encounter Results * Scan Doc: Lab (05/21/2012) Scanning Provider MEDIA MGR SCAN EXT O RDR/RSLT documented in this encounter Visit Diagnoses Not on filedocumented in this encounter Care Teams Top Hat Body Maker Relationship Specialty Start Date End Date None None PCP - General 05/08/12 04/20/14 documented as of this encounter
--- OUTSIDE RECORDS SUMMARY | 2024-02-21 14:49 | XMS_ITS | Encounter Summary ---
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 She is also surgically hypothyroid, and is follwed by Dr. Wallis here at [facility]. The plan is to keep TSH below 2.5; monthly TSH is ordered at [facility]. 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 There is no risk of hemolytic disease [...] continue to have blood tests monthly in [facility]. Given Your Journal booklet, DVD on . Will need to do QUAD. 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 documented in this encounter Plan of Treatment Upcoming Encounters Date Type Department Care Team (Late st Contact Info) Description 03/03/2024 3:00 PM EST Appointment Radiology at [place] [phone] Linda Diaz MD [facility] [place] [address] 03/03/2024 4:00 PM EST Routine Obstetrics and Gynecology at [place] [phone] Linda Diaz MD [facility] [place] [address] 03/03/2024 4:30 PM EST Scheduled View Only Obstetrics and Gynecology at [place] [phone] 03/12/2024 10:45 AM EST Office Visit [place] [address] James Barth DO [facility] [place] [address] 05/23/2024 Hospital Encounter Birthing [place] [phone] Maite Malloy MD [facility] [place] [address] documented as of this encounter Results * US OB Targeted Morphology (06/12/2012 10:55 AM EST) Anatomical Region Laterality Modality Pelvis, Abdomen Ultrasound 06/12/2012 10:5 5 AM EST Narrative 06/12/2012 11:08 AM EST ?OBSTETRICS REPORT ? (Signed Final 06/12/2012 11:07 am) Patient Info ID: ? [id number] ? : ??[birth year] (21 yrs) Name: ? PREETHI Walt ?Visit Date: 06/12/2012 10:49 am ? LOUISE- ? FRANK Performed By Performed By: ?Itzel Lezama RDMS Attending: ? Mathew LIMA, Lalita Diop Referred By: ? E MELANY BRISENO MD Service(s) Provided [facility] - Targeted Morphology - Genetics - ? [id number] UOBTV - Viability - Cervical Length - Transvaginal - ??[id number] Indications hypothyroid; possible history of 20 week [...] Tract: ?Visualized L Outflow Tract: ?Visualized Cardiac [place]: ? Visualized Diaphragm: ?Visualized Abdomen Ventral Wall: [...] to participate in the care of PREETHI MARSHALLWILLIAMS. Please do not hesitate to call if you have any questions. ?Lalita Carmona MD Electronically Signed Final Report ?? 06/12/2012 11:07 am Procedure Note Lalita Carmona MD - 06/12/2012 OBSTETRICS REPORT (Signed Final 06/12/2012 11:07 am) Patient Info ID: [id number] : [birth year] (21 yrs) Name: PREETHI Godoy Visit Date: 06/12/2012 10:49 am MARIO FRANK Performed By Performed By: Itzel Lezama RDMS Attending: Lalita Carmona MD Referred By: Walt BRISENO MD Service(s) Provided [facility] - Targeted Morphology - Genetics - [id number] UOBTV - Viability - Cervical Length - Transvaginal - [id number] Indications hypothyroid; possible history of 20 week [...] Tract: Visualized L Outflow Tract: Visualized Cardiac [place]: Visualized Diaphragm: Visualized Abdomen Ventral Wall: Visualized [...] high-risk documented in this encounter Care Teams Obstetrician Relationship Specialty Start Date End Date None None PCP - General 05/08/12 04/20/14 documented as of this encounter
--- OUTSIDE RECORDS SUMMARY | 2024-02-21 14:49 | XMS_ITS | Encounter Summary ---
Author Organization [facility] Address [facility] [place] [address] Care Team Providers Care Veterinary Laboratory Diagnostician Name Role Phone None Primary Care Provider Unavailabl e Reason for Visit * Reason Comments Routine Visit Encounter Details Date Type Department Care Team (Latest Contact Info) Description 09/02/2012 9:15 AM EDT Routine Obstetrics [place] [address] Myles Shipman MD [facility] DR OBSTETRICS & [place] [address] GA: 29w6d Discharge Disposition: Home Social History [...] PM EST Appointment Radiology at [place] [phone] Linda Diaz MD [facility] [place] [address] 03/03/2024 4:00 PM EST Routine Obstetrics [place] [phone] Linda Diaz MD [facility] [place] [address] 03/03/2024 4:30 PM EST Scheduled View Only Obstetrics and Gynecology at [place] [phone] 03/12/2024 10:45 AM EST Office [place] [address] James Barth DO [facility] [place] [address] 05/23/2024 Hospital [place] [phone] Maite Malloy MD [facility] [place]ICS [place] [address] documented as of this encounter Procedures Procedure [...] Lab Myles Shipman MD CHEMISTRY ORDERABLES [facility] [employer] documented in this encounter Visit Diagnoses Diagnosis , supervision of, high-risk- Primary Unspecified high-risk Hypothyroidism, postsurgical Postsurgical hypothyroidism Migraine Migraine, unspecified, without mention of intractable migraine without mention of status migrainosus documented in this encounter Care Teams Veterinary Laboratory Diagnostician Relationship Specialty Start Date End Date None None PCP - General 05/08/12 04/20/14 documented as of this encounter
--- OUTSIDE RECORDS SUMMARY | 2024-02-21 14:49 | XMS_ITS | Encounter Summary ---
Author Organization [facility] Address [facility] [place] [address] Care Team Providers Care Public Safety Dispatcher Name Role Phone None Primary Care Provider Unavailabl e Reason for Visit * Reason Comments Vaginal Pain Encounter Details Date Type Department Care Team (Latest Contact Info) Description 08/04/2012 5:07 AM EDT - 08/04/2012 11:51 AM EDT Hospital Encounter Birthing [facility] [place] [address] Maite Pearce MD [facility] OBSTETRICS [place] [address] Discharge Disposition: Home Social History Tobacco Use [...] Dumas RN - 08/04/2012 11:45 AM EDT [facility] [place] [address] [facility] to contact OB doctor [phone] to contact family doctor to contact systems development consultant Preethi [email or web address] 11:42 AM [facility] to contact OB doctor [facility] to contact systems [place] [address] to contact family doctor Following your visit to [facility] Triage [facility] to contact OB doctor [facility] to [place] [address] to contact family doctor [facility] Provider: GESTATION - Less Than 37 Weeks Call your provider if: You are feeling any cramping sensations in your abdomen less than 20 minutes apart Lyon-Vazquez Contractions usually are irregular may get less [...] a vaginal exam in your doctor's or systems development consultant's office you should not bleed as much [...] dehydration Keep your regularly scheduled doctor or systems development consultant appointment NEW MEDICATIONS: SPECIAL INSTRUCTIONS/FOLLOW-UP CARE: documented [...] 03/03/2024 3:00 PM [place] [address] Linda Diaz MD [facility] MATERNAL [place] [address] 03/03/2024 4:00 PM EST Routine Obstetrics [place] [address] Linda Diaz MD [facility] MATERNAL [place] [address] 03/03/2024 4:30 PM EST Scheduled View Only Obstetrics [place] [phone] 03/12/2024 10:45 AM EST Office [place] [phone] James Barth DO [facility] [place] [address] 05/23/2024 [place] [phone] Maite Malloy MD [facility] DR OBSTETRICS [place] [address] documented as of this encounter Procedures Procedure [...] Final 08/05/2012 02:16 pm) Patient Info ID: ?[id number] ?: ??[birth year] (22 yrs) Name: ?PREETHI Godoy ? Visit Date: 08/04/2012 10:21 am ?LOUISE- ?FRANK Performed By Performed By: ?Alicia Redding RDMS Attending: ? Selina LIMA, Maite Wilson Referred By: ? KATELYNN BALTAZAR MD Service(s) Provided UOBFOL - Efw - Growth - Reevaluation - [place] ?[id number] - [phone] UOBTV - Viability - Cervical Length - Transvaginal - ??[id number] Indications 22yo with history of delivery, now [...] to participate in the care of [facility]. Please do not hesitate to call if you have any questions. ? Maite Pearce MD Electronically Signed Final Report ?? 08/05/2012 02:16 pm Procedure Note Maite Pearce MD - 08/05/2012 OBSTETRICS REPORT (Signed Final 08/05/2012 02:16 pm) Patient Info ID: [id number] : [birth year] (22 yrs) Name: PREETHI Godoy Visit Date: 08/04/2012 10:21 am GILVishal MARIE Performed By Performed By: Alicia Redding [facility] Attending: Maite Pearce MD Referred By: KATELYNN BALTAZAR MD Service(s) Provided UOBFOL - Efw - Growth - Reevaluation - [place] [id number] - [id number] UOBTV - Viability - Cervical Length - Transvaginal - [id number] [id number] Indications 22yo with history of delivery, now [...] AM EDT) Urine Culture ? Patient Name: GILJOSUÉ CAIN, ?? Ordered By: MAITE PEARCE ? SORAARON E ? MR#: [id number] ?LOC: ??[facility] ? /Sex: ?? 2 (22 years), ? Female ? PROCEDURE: Urine Culture ?SOURCE: U CC ? COLLECTED: 08/04/2012 09:03 ? STARTED: 08/04/2012 09:19 ? FINAL REPORT ? Final Report ? Verified: 07:46 ? No growth (Less than 1,000 cfu/ml). ? ____ [facility] Urine specimen obtained by clean catch procedure (specimen) 08/04/2012 9:03 AM EDT 08/04/2012 9:19 AM EDT Narrative Resulting Agency Comment Spec In Lab Maite Pearce MD MICROBIOLOGY - GENER AL ORDERABLES [facility] * (ABNORMAL) Rapid Qual Drug Screen, Urine ([facility]) (08/04/2012 9:03 AM EDT) [facility] Marijuana Metabolites Screen None Detected None Detected [facility] Comment: Please note that as of 04/12/2012 the testing device changed to the PROFILE-V MEDTOXScan Drugs of Abuse Test System. The marijuana metabolites screen detects the THC Metabolite (71-vut-1-carboxy- 9-THC) ??at concentrations >50 ng/mL. Be aware [...] Resulting Agency Comment Spec In Lab Maite R Pearce MD URINE ORDERABLES Performing Organization Address [facility] Co de Phone Number [facility] MILLENNIUM * (ABNORMAL) Urinalysis without microscopic (08/04/2012 [...] Urine Dipstick Hazy(A) Clear [facility]ENNI[facility] Specific [place] Urine Automated 1.013 1.002 - 1.030 [facility] Color, Urine Dipstick Yellow Yellow [facility] Urine specimen (specimen) 08/04/2012 9:03 AM EDT 08/04/2012 9:16 AM EDT Narrative Resulting Agency Comment Spec In Lab Maite Pearce MD URINE ORDERABLES Performing Organization Address [facility] de Phone Number [facility] TORINENNIUM * Fibronectin (08/04/2012 7:10 AM EDT) Fibronect [...] MD BODY FLUIDS AND DEBBIE MCCLENDON ORDERABLES [facility] documented in this encounter Visit Diagnoses Not on filedocumented in this encounter Care Teams Public Safety Dispatcher Relationship Specialty Start Date End Date None None PCP - General 05/08/12 04/20/14 documented as of this encounter
--- OUTSIDE RECORDS SUMMARY | 2024-02-21 14:49 | XMS_ITS | Encounter Summary ---
Author Organization [facility] [place] [address] Care Team Providers Care Coat Ironer Hand Name Role Phone None Primary Care Provider Unavailabl e Encounter Details Date Type Department Care Team (Late st Contact Info) Description 04/03/2011 Orders Only [place] [address] Marlo Ko MD [facility] [place] [address] Follicular adenoma of thyroid gland (Primary Dx) [...] 3:00 PM EST Appointment [place] [address] Linda Diaz MD [facility] [place] [address] 03/03/2024 4:00 PM EST Routine Obstetrics [place] [address] Linda Diaz MD [facility] [place] [address] 03/03/2024 4:30 PM EST Scheduled View Only Obstetrics [place] [address] 03/12/2024 10:45 AM EST Office Visit [place] [address] James Barth DO [facility] [place] [address] 05/23/2024 Hospital [place] [address] Maite Malloy MD [facility] DR OBSTETRICS AND GYNECOLOGY [place], [place] [phone] documented as of this encounter Results * (ABNORMAL) TSH (05/10/2011 8:03 AM EST) Thyroid Stimulating Hormone 111.10(H) 0.27 - 4.20 mcIU/mL [facility] Blood specimen (specimen) 05/10/2011 8:03 AM EST 05/10/2011 8:10 AM EST Marlo Ko MD CHEMISTRY ORDERABL ES [facility] * (ABNORMAL) T4 (05/10/2011 8:03 AM EST) T4 Total 4.0(L) 5.1 - 10.8 mcg/dL [facility] Comment: Reference Range: Bighorn Cord Blood: ??6.9-14.4 mcg/dL Females: ??7.2-14.2 mcg/dL Pediatric ranges: ??Interpret with caution-ranges have not been verified Blood specimen (specimen) 05/10/2011 8:03 AM EST 05/10/2011 8:10 AM EST Marlo Ko MD CHEMISTRY ORDERABL ES Performing Organization Address City/State/[facility] Co de Phone Number [facility] documented in this encounter Visit Diagnoses Diagnosis Follicular adenoma of thyroid gland- Primary Benign neoplasm of thyroid glands documented in this encounter Care Teams Coat Ironer Hand Relationship Specialty Start Date End Date None None PCP - General 02/23/11 05/09/11 documented as of this encounter
--- OUTSIDE RECORDS SUMMARY | 2024-02-21 14:49 | XMS_ITS | Encounter Summary ---
Author Organization [facility] [place] [address] Care Team Providers Care Internal Medicine Specialist Name Role Phone None Primary Care Provider Unavailabl e Reason for Visit * Reason Comments Routine Visit Encounter Details Date Type Department Care Team (Latest Contact Info) Description 07/04/2012 4:15 PM EDT Routine Obstetrics [place] [address] Walt Bay MD [facility] DR [place] [address] GA: 21w2d Discharge Disposition: Home Social History [...] Reviewed causes of diastasis; recommendations. GTT at [facility]; slip given. RTC 2 weeks for cervical length. If normal length, no further surveillance. documented in this encounter Plan of Treatment Upcoming Encounters Date Type Department Care Team (Late st Contact Info) Description 03/03/2024 3:00 PM EST Appointment Radiology at [place] [phone] Linda Diaz MD [facility] [place] [address] 03/03/2024 4:00 PM EST Routine Obstetrics [place] [phone] Linda Diaz MD [facility] [place] [address] 03/03/2024 4:30 PM EST Scheduled View Only Obstetrics [place] [address] 03/12/2024 10:45 AM EST Office Visit Endocrinology at [place] [phone] James Barth DO [facility] [place] [address] 05/23/2024 Hospital [place] [phone] Maite Malloy MD [facility] DR OBST[place] [address] documented as of this encounter Visit Diagnoses Diagnosis Migraine- Primary Migraine, unspecified, without mention of intractable migraine without mention of status migrainosus , supervision of, high-risk Unspecified high-risk documented in this encounter Care Teams Internal Medicine Specialist Relationship Specialty Start Date End Date None None PCP - General 05/08/12 04/20/14 documented as of this encounter
--- OUTSIDE RECORDS SUMMARY | 2024-02-21 14:49 | XMS_ITS | Encounter Summary ---
Author Organization [facility] Address [facility] [place] [address] Care Team Providers Care Concession Supervisor Name Role Phone None Primary Care Provider Unavailabl e Reason for Referral * Psychiatric (Routine) - Closed Specialty Diagnoses / Procedures Referred By Lamont t Referred To Contact Psychiatry Diagnoses Unspecified high-risk Lalita Carmona MD [facility] OBSTETRICS [place] [address] Yaneth Griffith MD [facility] DR PSYCHIATRY [place] [address] Referral ID Status Reason Start Date Expiration Date V isits Requested Visits Authorized [id number] Closed Consult, Test & Treat 07/19/2012 01/15/2013 1 1 Reason for Visit * Reason Comments Routine Visit Encounter Details Date Type Department Care Team (Late st Contact Info) Description 07/19/2012 11:15 AM EDT Routine Obstetrics [place] [address] Lalita Carmona MD [facility] OBSTETRICS AND [place] [address] GA: 23w3d Discharge Disposition: Home Social History [...] (if applicable) along with the Guide to Natalia was given to the patient. The materials were discussed and the patient was encouraged to read the information and direct questions to the provider. documented in this encounter Plan of Treatment Upcoming Encounters Date Type Department Care Team (Late st Contact Info) Description 03/03/2024 3:00 PM EST [place] [address] Linda Diaz MD [facility] [place] [address] 03/03/2024 4:00 PM EST Routine Obstetrics [place] [address] Linda Diaz MD [facility] [place] [address] 03/03/2024 4:30 PM EST Scheduled View Only Obstetrics [place] [address] 03/12/2024 10:45 AM EST Office [place] [address] James Barth DO [facility] [place] [address] 05/23/2024 Hospital [place] [address] Maite Malloy MD [facility] DR OBSTET[place] [address] Scheduled Referrals Name Type Priority Associated Diagnoses Order Schedule Referral to Psychiatry Outpatient Referral Routine Unspecified high-risk Ordered: 07/19/2012 documented as of this encounter Results * (ABNORMAL) TSH (08/08/2012 9:29 AM EDT) Thyroid Stimulating Hormone 0.03(L) 0.27 - 4.20 mcIU/mL [facility] Blood specimen (specimen) 08/08/2012 9:29 AM EDT 08/08/2012 9:33 AM EDT Narrative Resulting Agency Comment Spec In Lab Lalita Carmona MD CHEMISTRY ORDERABL ES [facility] * Hemoglobin and Hematocrit, blood (08/08/2012 9:29 AM EDT) Hemoglobin 12.2 11.2 - 15.7 gm/dL [facility] Hematocrit 35.4 34.0 - 45.0 % [facility] MILLENNIUM Blood specimen (specimen) 08/08/2012 9:29 AM EDT 08/08/2012 9:33 AM EDT Narrative Resulting Agency Comment Spec In Lab Lalita Carmona MD HEMATOLOGY ORDERAB LES Performing Organization Address [facility] de Phone Number [facility] * Glucose 1 Hour Post Prandial (08/08/2012 9:29 AM EDT) Glucose Post Prandial, 1 Hour 128 mg/dL [facility] Blood specimen (specimen) 08/08/2012 9:29 AM EDT 08/08/2012 9:33 AM EDT Narrative Resulting Agency Comment Spec In Lab Lalita Carmona MD CHEMISTRY ORDERABL ES Performing Organization Address [facility] Phone Number [facility] documented in this encounter Visit Diagnoses Diagnosis Unspecified high-risk - Primary documented in this encounter Care Teams Concession Supervisor Relationship Specialty Start Date End Date None None PCP - General 05/08/12 04/20/14 documented as of this encounter
--- OUTSIDE RECORDS SUMMARY | 2024-02-21 14:49 | XMS_ITS | Encounter Summary ---
Author Organization [facility] Address [facility] [place] [address] Care Team Providers Care Signs And Displays Sales Representative Name Role Phone Mya Varghese MD Primary Care Provider [phone] Reason for Visit * Reason Comments Advice Only H/O thyroidectomy Encounter Details Date Type Department Care Team (Late st Contact Info) Description 04/25/2012 9:45 AM EST Office Visit Obstetrics [place] [phone] Maite Marks MD [facility] DR OBSTETRICS [place] [address] Thyroiditis (Primary Dx); Hypothyroidism complicating ; Family [...] NECK DISSECTION performed by JUAN ESPARZA at [facility] MAIN OR ??? Somatosensory test, any/all per. nerves, trunk or head 03/22/2011 FACIAL NERVE MONITORING, SETUP performed by JUAN ESPARZA at [facility] MAIN OR ??? Tonsillectomy ??? [place] tooth extraction ??? Upper gastrointestinal endoscopy for [...] hypothyroidism. If her sister does have Long-chain 6-zjtbnugrggv-SiY dehydrogenase (LCHAD) deficiency, the patient has a [...] 03/03/2024 3:00 PM [place] [address] Linda Diaz MD [facility] DR MATERNAL [place] [address] 03/03/2024 4:00 PM EST Routine Obstetrics [place] [address] Linda Diaz MD [facility] DR MATERNAL [place] [address] 03/03/2024 4:30 PM EST Scheduled View Only Obstetrics and Gynecology at [place] [address] 03/12/2024 10:45 AM EST Office Visit Endocrinology at [place] [address] James Barth DO [facility] DR [place]OCRINOLOG[place] [address] 05/23/2024 Hospital [place] [address] Maite Malloy MD [facility] DR OBSTETRICS [place] [address] documented as of this encounter Visit Diagnoses Diagnosis Thyroiditis- Primary Thyroiditis, unspecified Hypothyroidism complicating Thyroid dysfunction of mother, complicating , childbirth, or the puerperium, unspecified as to episode of care Family history of metabolic and nutritional disorder Family history of other endocrine and metabolic diseases documented in this encounter Care Teams Signs And Displays Sales Representative Relationship Specialty Start Date End Date Mya Varghese MD [address] [place] [address] [place] [address] PCP - General 05/10/11 05/07/12 documented as of this encounter
--- OUTSIDE RECORDS SUMMARY | 2024-02-21 14:49 | XMS_ITS | Encounter Summary ---
Author Organization [facility] [place] [address] Care Team Providers Care Drum Carrier Name Role Phone None Primary Care Provider Unavailabl e Reason for Visit * Reason Onset Date Comments Neck Pain 03/23/2011 Encounter Details Date Type Department Care Team (Late st Contact Info) Description 03/23/2011 Telephone General Surgery at [facility] [place] [address] Chloé Santa RN Neck Pain Social History [...] from Andree who reports having neck pain. [facility] [place] Patient Name: Andree Hummel : [id number] MR#: [id number] Case Date: 03/22/2011 Surgeon: Surgeon(s) and Role: [...] 03/03/2024 3:00 PM [place] [address] Linda Diaz MD [facility] MATERNAL [place] [address] 03/03/2024 4:00 PM EST Routine Obstetrics [place] [address] Linda Diaz MD [facility] MATERNAL [place] [address] 03/03/2024 4:30 PM EST Scheduled View Only Obstetrics [place] [address] 03/12/2024 10:45 AM EST Office [place] [address] James Barth DO [facility] [place] [address] 05/23/2024 Hospital Encounter [place] [address] Maite Malloy MD [facility] OBSTETRICS [place] [address] documented as of this encounter Visit Diagnoses Not on filedocumented in this encounter Care Teams Drum Carrier Relationship Specialty Start Date End Date None None PCP - General 02/23/11 05/09/11 documented as of this encounter
--- OUTSIDE RECORDS SUMMARY | 2024-02-21 14:49 | XMS_ITS | Encounter Summary ---
Author Organization [facility] Address [facility] [place] [address] Care Team Providers Care Hog Cooler Name Role Phone None Primary Care Provider Unavailabl e Reason for Referral * Psychiatric (Routine) - Closed Specialty Diagnoses / Procedures Referred By Lamont t Referred To Contact Psychiatry Diagnoses Unspecified high-risk Lalita Carmona MD [facility] OBSTETRICS [place] [address] Yaneth Griffith MD [facility] [place] [address] Referral ID Status Reason Start Date Expiration Date V isits Requested Visits Authorized [id number] Closed Consult, Test & Treat 08/08/2012 02/04/2013 1 1 Reason for Visit * Reason Comments Routine Visit Encounter Details Date Type Department Care Team (Late st Contact Info) Description 08/08/2012 10:00 AM EDT Routine Obstetrics [place] [address] Lalita Carmona MD [facility] OBSTETRICS [place] [address] GA: [id number] Discharge Disposition: Home Social History [...] 03/03/2024 3:00 PM [place] [address]1000 Linda Diaz MD [facility] MATERNAL [place] [address] 03/03/2024 4:00 PM EST Routine Obstetrics [place] [address]1000 Linda Diaz MD [facility] [place] [address] 03/03/2024 4:30 PM EST Scheduled View Only Obstetrics [place] [address] 03/12/2024 10:45 AM EST Office [place] [address] James Barth DO [facility] DR ENDOCRINOLOGY DEPT [place], [place] [phone] 05/23/2024 Hospital [place] [address] Maite Malloy MD [facility] DR OBSTETRICS AND GYNECOLOGY [place], [place] [phone] Scheduled Referrals Name Type Priority Associated Diagnoses [...] Carmona MD CHEMISTRY ORDERABL ES HANNAH SERRANO * Hemoglobin and Hematocrit, blood (08/08/2012 9:29 AM EDT) Hemoglobin 12.2 11.2 - 15.7 gm/dL HANNAH SERRANO Hematocrit 35.4 34.0 - 45.0 % HANNAH SERRANO Blood specimen (specimen) 08/08/2012 9:29 AM EDT 08/08/2012 9:33 AM EDT Narrative Resulting Agency Comment Spec In Lab Lalita Carmona MD HEMATOLOGY ORDERAB LES Performing Organization Address City/[facility]/ZIP Co de Phone Number HANNAH SERRANO * Glucose 1 Hour Post Prandial (08/08/2012 9:29 AM EDT) Glucose Post Prandial, 1 Hour 128 mg/dL HANNAH SERRANO Blood specimen (specimen) 08/08/2012 9:29 AM EDT 08/08/2012 9:33 AM EDT Narrative Resulting Agency Comment Spec In Lab Lalita Carmona MD CHEMISTRY ORDERABL ES Performing Organization Address City/[facility]/ZIP Co de Phone Number HANNAH SERRANO documented in this encounter Visit Diagnoses Diagnosis Unspecified high-risk - Primary documented in this encounter Care Teams Hog Cooler Relationship Specialty Start Date End Date None None PCP - General 05/08/12 04/20/14 documented as of this encounter
--- OUTSIDE RECORDS SUMMARY | 2024-02-21 14:49 | XMS_ITS | Encounter Summary ---
Author Organization [facility] [place] [address] Care Team Providers Care Personnel Worker Name Role Phone None Primary Care Provider Unavailabl e Encounter Details Date Type Department Care Team (Late st Contact Info) Description 05/29/2012 External Results Obstetrics [place] [phone] Myles Irwin, RN Social History Tobacco Use [...] 03/03/2024 3:00 PM [place] [address]1000 Linda Diaz MD [facility] [place] [address] 03/03/2024 4:00 PM EST Routine Obstetrics [place] [address]1000 Linda Diaz MD [facility] [place] [address] 03/03/2024 4:30 PM EST Scheduled View Only Obstetrics [place] [address] 03/12/2024 10:45 AM EST Office [place] [address] James Barth DO [facility] DR ENDOCRINOLOGY DEPT [place], [place] [phone] 05/23/2024 Hospital [place] [address] Maite Malloy MD [facility] DR OBSTETRICS [place] [address] documented as of this encounter Procedures Procedure Name Priority Date/Time Associated Diagnosis Comments TSH Routine 05/21/2012 INITIAL EXTERNAL RESULTS PANEL Routine 05/06/2012 documented in this encounter Results * (ABNORMAL) TSH (05/21/2012) Thyroid Stimulating Hormone 2.42(Exter nal Lab) Blood specimen (specimen) 05/21/2012 Griffin Wallis III, MD CHEMISTRY ORDER AMANDA * (ABNORMAL) Initial External Lab Panel (05/06/2012) ABORH Type A+(Apartment Maintenance Supervisor al Lab) Ab Screen Interp Positive( EXTERNAL/ [...] on filedocumented in this encounter Care Teams Personnel Worker Relationship Specialty Start Date End Date None None PCP - General 05/08/12 04/20/14 documented as of this encounter
--- OUTSIDE RECORDS SUMMARY | 2024-02-21 14:49 | XMS_ITS | Encounter Summary ---
Author Organization [facility] [place] [address] Care Team Providers Care Transport Operations Inspector Name Role Phone None Primary Care Provider Unavailabl e Encounter Details Date Type Department Care Team (Latest Contact Info) Description 07/04/2012 1:49 PM EDT - 07/04/2012 11:59 PM EDT Hospital Encounter Ultrasound at [facility] [place] [address] History of loss in prior , currently [...] 03/03/2024 3:00 PM EST Appointment Radiology at [place] [phone] Linda Diaz MD [facility] MATERNAL [place] [address] 03/03/2024 4:00 PM EST Routine Obstetrics and Gynecology at [place] [phone] Linda Diaz MD [facility] DR MATERNAL [place] [address] 03/03/2024 4:30 PM EST Scheduled View Only Obstetrics and Gynecology at [place] [phone] 03/12/2024 10:45 AM EST Office Visit Endocrinology at [place] [phone] James Barth DO [facility] [place] [address] 05/23/2024 Hospital Encounter Birthing [place] [phone] Maite Malloy MD [facility] OBSTETRICS [place] [address] documented as of this encounter Procedures Procedure [...] 07/04/2012 03:20 pm) Patient Info ID: ? [id number] ? : ??[birth year] (22 yrs) Name: ? PREETHI Godoy ?Visit Date: 07/04/2012 03:03 pm ? LOUISE- ? FRANK Performed By Performed By: ?Itzel Lezama RDMS Attending: ? Anca LIMA, Phylicia JMiguel Referred By: ? LALITA QUAN MD Service(s) Provided UOBTV - Viability - Cervical Length - Transvaginal - ??[id number] Indications cervical length Evaluation Num Of Fetuses: [...] participate in the care of PREETHI Walt GILFRANK. Please do not hesitate to call if you have any questions. ?Phylicia March MD Electronically Signed Final Report ?? 07/04/2012 03:20 pm Procedure Note Phylicia March MD - 07/04/2012 OBSTETRICS REPORT (Signed Final 07/04/2012 03:20 pm) Patient Info ID: [id number] : [birth year] (22 yrs) Name: PREETHI Godoy Visit Date: 07/04/2012 03:03 pm MARIO MARIE Performed By Performed By: Itzel Lezama RDMS Attending: Phylicia March MD. Referred By: LALITA QUAN MD Service(s) Provided UOBTV - Viability - Cervical Length - Transvaginal - [id number] Indications cervical length Evaluation Num Of Fetuses: [...] of documented in this encounter Care Teams Transport Operations Inspector Relationship Specialty Start Date End Date None None PCP - General 05/08/12 04/20/14 documented as of this encounter
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
--- OUTSIDE RECORDS SUMMARY | 2024-02-21 14:49 | XMS_ITS | Encounter Summary ---
Author Organization [facility] Address [facility] [place] [address] Care Team Providers Care Silo Painter Name Role Phone None Primary Care Provider Unavailabl e Encounter Details Date Type Department Care Team (Late st Contact Info) Description 04/05/2011 Orders Only [place] [phone] Marlo Ko MD [facility] [place] [address] Social History Tobacco Use Types Packs/Day Years [...] 03/03/2024 3:00 PM EST Appointment [place] [address] Linda Diaz MD [facility] MATERNAL [place] [address] 03/03/2024 4:00 PM EST Routine Obstetrics [place] [address] Linda Diaz MD [facility] MATERNAL [place] [address] 03/03/2024 4:30 PM EST Scheduled View Only Obstetrics and Gynecology at [place] [phone] 03/12/2024 10:45 AM EST Office Visit [place] [address] James Barth DO [facility] [place] [address] 05/23/2024 Hospital [place] [address] Maite Malloy MD [facility] OBSTETRICS [place] [address] documented as of this encounter Visit Diagnoses Not on filedocumented in this encounter Care Teams Silo Painter Relationship Specialty Start Date End Date None None PCP - General 02/23/11 05/09/11 documented as of this encounter
--- OUTSIDE RECORDS SUMMARY | 2024-02-21 14:49 | XMS_ITS | Encounter Summary ---
Author Organization [facility] [place] [address] Care Team Providers Care Cloud Automation Tester Name Role Phone None Primary Care Provider Unavailabl e Reason for Visit * Reason Onset Date Comments Results 06/04/2012 Encounter Details Date Type Department Care Team (Late st Contact Info) Description 06/04/2012 Telephone Endocrinology at [facility] [place] [address] Omayra Meredith LPN Results Social History Tobacco [...] Rx is needed Rx to go to [facility] [place] [facility] +++++++++++++++++++ Well, let's add 50 mcg each [...] Rx is needed Rx to go to [facility] [place] [facility] documented in this encounter Plan of Treatment Upcoming Encounters Date Type Department Care Team (Late st Contact Info) Description 03/03/2024 3:00 PM EST Appointment [place] [address]1000 Linda Diaz MD [facility] [place] [address] 03/03/2024 4:00 PM EST Routine Obstetrics [place] [address]1000 Linda Diaz MD [facility] [place] [address] 03/03/2024 4:30 PM EST Scheduled View Only Obstetrics [place] [address] 03/12/2024 10:45 AM EST Office [place] [address]1000 James Barth DO [facility] [address] 05/23/2024 Hospital Encounter Birthing [facility] [place] [address]1000 Maite Malloy MD [facility] [place]ET[place]ICS [place] [address] documented as of this encounter Visit Diagnoses Not on filedocumented in this encounter Care Teams Cloud Automation Tester Relationship Specialty Start Date End Date None None PCP - General 05/08/12 04/20/14 documented as of this encounter
--- OUTSIDE RECORDS SUMMARY | 2024-02-21 14:49 | XMS_ITS | Encounter Summary ---
Author Organization [facility] [place] [address] Care Team Providers Care Card Boxer Name Role Phone None Primary Care Provider Unavailabl e Reason for Visit * Reason Onset Date Comments Muscle Pain 06/18/2012 Encounter Details Date Type Department Care Team (Late st Contact Info) Description 06/18/2012 Telephone Obstetrics and Gynecology at [facility] [place] [address] Estelle Ribeiro RN Muscle Pain Social History [...] 03/03/2024 3:00 PM EST Appointment Radiology at [place] [phone] Linda Diaz MD [facility] MATERNAL [place] [address] 03/03/2024 4:00 PM EST Routine Obstetrics and Gynecology at [place] [phone] Linda Diaz MD [facility] MATERNAL [place] [address] 03/03/2024 4:30 PM EST Scheduled View Only Obstetrics and Gynecology at [place] [phone] 03/12/2024 10:45 AM EST Office Visit Endocrinology at [place] [phone] James Barth DO [facility] [place] [address] 05/23/2024 Hospital [place] [address] Maite Malloy MD [facility] OBSTETRICS [place] [address] documented as of this encounter Visit Diagnoses Not on filedocumented in this encounter Care Teams Card Boxer Relationship Specialty Start Date End Date None None PCP - General 05/08/12 04/20/14 documented as of this encounter
--- OUTSIDE RECORDS SUMMARY | 2024-02-21 14:49 | XMS_ITS | Encounter Summary ---
Author Organization [facility] [place] [address] Care Team Providers Care Telephone Solicitor Name Role Phone None Primary Care Provider Unavailabl e Reason for Visit * Reason Onset Date Comments Advice Only 08/08/2012 Encounter Details Date Type Department Care Team (Late st Contact Info) Description 08/08/2012 Telephone Endocrinology at [facility] [place] [address] Omayra Meredith LPN Advice Only Social History [...] 03/03/2024 3:00 PM EST Appointment Radiology at [place] [phone] Linda Diaz MD [facility] MATERNAL [place] [address] 03/03/2024 4:00 PM EST Routine Obstetrics [place] [address]1000 Linda Diaz MD [facility] [place] [address] 03/03/2024 4:30 PM EST Scheduled View Only Obstetrics and Gynecology at [address] 03/12/2024 10:45 AM EST Office Visit Endocrinology at [place] [phone] James Barth DO [facility] [place] [address] 05/23/2024 Hospital [place] [address] Maite Malloy MD [facility] OBSTETRICS [place] [address] documented as of this encounter Visit Diagnoses Not on filedocumented in this encounter Care Teams Telephone Solicitor Relationship Specialty Start Date End Date None None PCP - General 05/08/12 04/20/14 documented as of this encounter
--- OUTSIDE RECORDS SUMMARY | 2024-02-21 14:49 | XMS_ITS | Encounter Summary ---
Author Organization [facility] Address [facility] [place] [address] Care Team Providers Care Sound Mixer Name Role Phone None Primary Care Provider Unavailabl e Encounter Details Date Type Department Care Team (Latest Contact Info) Description 05/08/2012 10:30 AM EST Office Visit [place] [address] Griffin Wallis III, MD [facility] DR ENDOCRIN[place] [address] Hypothyroidism (Primary Dx) Discharge Disposition: Home Social [...] of 1.35 with (-) TSI (done at [facility]). She has no symptoms of hypothyroidism [...] standing order for monthly TSH levels at [facility], with results to be FAXed to me at [phone]. Lastly, she wanted mt to be sure that Dr. Maite Marks is aware that the local Auto Striper requeststhat her care be transferred to Dr. Marks. More than 32 of this 60 minute visit was spent in face to face counseling and discussing the implications of the diagnosis and potential therapeutic approaches as detailed above. documented in this encounter Plan of Treatment Upcoming Encounters Date Type Department Care Team (Late st Contact Info) Description 03/03/2024 3:00 PM EST Appointment Radiology at [place] [phone] Linda Diaz MD [facility] [place] [address] 03/03/2024 4:00 PM EST Routine Obstetrics and Gynecology at [address] Linda Diaz MD [facility] [place] [address] 03/03/2024 4:30 PM EST Scheduled View Only Obstetrics and Gynecology at [place] [phone] 03/12/2024 10:45 AM EST Office Visit Endocrinology at [address]1000 James Barth DO [facility] DR [place] [address] 05/23/2024 Hospital Encounter Birthing [place] [phone] Maite Malloy MD [facility] OBSTETRICS [place] [address] documented as of this encounter Visit Diagnoses Diagnosis Hypothyroidism- Primary Unspecified hypothyroidism documented in this encounter Care Teams Sound Mixer Relationship Specialty Start Date End Date None None PCP - General 05/08/12 04/20/14 documented as of this encounter
--- OUTSIDE RECORDS SUMMARY | 2024-02-21 14:49 | XMS_ITS | Encounter Summary ---
Author Organization [facility] [place] [address] Care Team Providers Care Technical Communication Teacher Name Role Phone Mya Varghese MD Primary Care Provider [phone] Encounter Details Date Type Department Care Team (Late st Contact Info) Description 04/12/2012 Orders Only Obstetrics [place] [address] Estelle Ribeiro RN Hypothyroidism, postsurgical (Primary Dx) [...] 03/03/2024 3:00 PM EST Appointment Radiology at [address] Linda Diaz MD [facility] [place] [address] 03/03/2024 4:00 PM EST Routine Obstetrics and Gynecology at [address] Linda Diaz MD [facility] [place] [address] 03/03/2024 4:30 PM EST Scheduled View Only Obstetrics [place] [address] 03/12/2024 10:45 AM EST Office Visit Endocrinology at [place] [address] James Barth DO [facility] [place] [address] 05/23/2024 [place] [address] Maite Malloy MD [facility] DR OBSTETRICS [place] [address] documented as of this encounter Visit Diagnoses Diagnosis Hypothyroidism, postsurgical- Primary Postsurgical hypothyroidism documented in this encounter Care Teams Technical Communication Teacher Relationship Specialty Start Date End Date Mya Varghese MD [address] [place] [address] [place] [address] PCP - General 05/10/11 05/07/12 documented as of this encounter
--- OUTSIDE RECORDS SUMMARY | 2024-02-21 14:49 | XMS_ITS | Encounter Summary ---
Author Organization [facility] Address [facility] [place] [address] Care Team Providers Care Holistic Pulser Name Role Phone None Primary Care Provider Unavailabl e Reason for Visit * Reason Comments Abdominal Cramping Encounter Details Date Type Department Care Team (Latest Contact Info) Description 07/10/2012 10:58 PM EDT - 07/11/2012 12:38 AM EDT Hospital Encounter Birthing [place] [address] Maite Marks MD [facility] [place] [address] Discharge Disposition: Home Social History Tobacco Use [...] Perkins RN - 07/11/2012 12:35 [place] [address] [facility] to contact OB doctor [phone] to contact family doctor to contact neighborhood service center director Andree Hummel @[email or web address]@ 12:35 AM Following your visit to [facility] Triage Reason for Visit: Chief [...] your abdomen more than 20 minutes apart Kleberg-Vazquez Contractions usually are irregular may get less [...] a vaginal exam in your doctor's or neighborhood service center director's office you should not bleed as [...] fall, or impact Call your doctor or neighborhood service center director if you have the following symptoms: Headache [...] dehydratio Keep your regularly scheduled doctor or neighborhood service center director appointment Your medications: No current facility-administered medications on file prior to encounter. Current Outpatient Prescriptions on File Prior to Encounter Medication Sig Dispense Refill ??? ngmserxnpp-ocwyymfhabtjl-fwgvqnqi (FIORICET, ESGIC) per tablet Take 1 tablet [...] TRIAGE NOTE Andree Hummel 22 y.o. 22w1d [id number] CC: I fell on my left side [...] 03/03/2024 3:00 PM EST Appointment Radiology at [facility] [address] [address] Linda Diaz MD [facility] [place] [address] 03/03/2024 4:00 PM EST Routine Obstetrics and Gynecology at [address] Linda Diaz MD [facility] [place] [address] 03/03/2024 4:30 PM EST Scheduled View Only Obstetrics and Gynecology at [address] 03/12/2024 10:45 AM EST Office Visit Endocrinology at [place] [address] James Barth DO [facility] [place] [address] 05/23/2024 [place] [address] Maite Malloy MD [facility] OBSTETRICS [place] [address] documented as of this encounter Visit Diagnoses Not on filedocumented in this encounter Active and Recently Administered Medications Care Teams Holistic Pulser Relationship Specialty Start Date End Date None None PCP - General 05/08/12 04/20/14 documented as of this encounter
--- OUTSIDE RECORDS SUMMARY | 2024-02-21 14:49 | XMS_ITS | Encounter Summary ---
Author Organization [facility] [place] [address] Care Team Providers Care Public Housing Interviewer Name Role Phone None Primary Care Provider Unavailabl e Reason for Visit * Reason Comments Family History sister with possible LCHAD deficiency Encounter Details Date Type Department Care Team (Late st Contact Info) Description 05/22/2012 10:00 AM EST Office Visit Obstetrics [place] [address] Félix Richardson, [facility] OBSTETRICS & [place] [address] Family history of metabolic disease (Primary Dx); [...] mother provided written authorization to review the [facility] medical records of Andree's sister, Ana Hummel ( 03/27/1999). 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 She then had numerous [...] with written information about LCHAD deficiency from [employer] (www. screening.info), which includes a list of [...] 03/03/2024 3:00 PM EST Appointment Radiology at [place] [phone] Linda Diaz MD [facility] [place] [address] 03/03/2024 4:00 PM EST Routine Obstetrics [place] [address] Linda Diaz MD [facility] [place] [address] 03/03/2024 4:30 PM EST Scheduled View Only Obstetrics [place] [address] 03/12/2024 10:45 AM EST Office Visit Endocrinology at [place] [phone] Lary, [place], [facility] [place] [address] 05/23/2024 Hospital Encounter Birthing [place] [phone] Maite Malloy MD [facility] OBSTETRICS [place] [address] documented as of this encounter Visit Diagnoses Diagnosis Family history of metabolic disease- Primary Family history of other endocrine and metabolic diseases Genetic counseling documented in this encounter Care Teams Public Housing Interviewer Relationship Specialty Start Date End Date None None PCP - General 05/08/12 04/20/14 documented as of this encounter
--- OUTSIDE RECORDS SUMMARY | 2024-02-21 14:49 | XMS_ITS | Encounter Summary ---
Author Organization [facility] [place] [address] Care Team Providers Care Welder Shielded Metal Arc Name Role Phone None Primary Care Provider Unavailabl e Encounter Details Date Type Department Care Team (Latest Contact Info) Description 06/12/2012 9:49 AM EST - 06/12/2012 11:59 PM EST Hospital Encounter Ultrasound at [facility] [place] [phone] , supervision of, high-risk Social History Tobacco [...] 03/03/2024 3:00 PM EST Appointment Radiology at [place] [phone] Linda Diaz MD [facility] [place] [address] 03/03/2024 4:00 PM EST Routine Obstetrics [place] [phone] Linda Diaz MD [facility] [place] [address] 03/03/2024 4:30 PM EST Scheduled View Only Obstetrics and Gynecology at [place] [phone] 03/12/2024 10:45 AM EST Office Visit Endocrinology at [address] James Barth DO [facility] [place] [address] 05/23/2024 [place] [phone] Maite Malloy MD [facility] DR OB[place] [address] documented as of this encounter Procedures Procedure [...] 06/12/2012 11:07 am) Patient Info ID: ? [id number] ? : ??[birth year] (21 yrs) Name: ? PREETHI Godoy ?Visit Date: 06/12/2012 10:49 am ? LOUISE- ? FRANK Performed By Performed By: ?Itzel Lezama RDMS Attending: ? Mathew LIMA, Lalita Diop Referred By: ? E MELANY BAY MD Service(s) Provided [facility] - Targeted Morphology - Genetics - ? [id number] [phone] UOBTV - Viability - Cervical Length - Transvaginal - ??[id number] Indications hypothyroid; possible history of 20 week [...] Tract: ?Visualized L Outflow Tract: ?Visualized Cardiac Saline: ? Visualized Diaphragm: ?Visualized Abdomen Ventral Wall: [...] Final 06/12/2012 11:07 am) Patient Info ID: [id number] : [birth year] (21 yrs) Name: PREETHI Godoy Visit Date: 06/12/2012 10:49 am MARIO MARIE Performed By Performed By: Itzel Lezama RDMS Attending: Lalita Carmona MD Referred By: Walt BAY MD Service(s) Provided [facility] - Targeted Morphology - Genetics - [id number] [id number] UOBTV - Viability - Cervical Length - Transvaginal - [id number] Indications hypothyroid; possible history of 20 week [...] Tract: Visualized L Outflow Tract: Visualized Cardiac Saline: Visualized Diaphragm: Visualized Abdomen Ventral Wall: Visualized [...] high-risk documented in this encounter Care Teams Welder Shielded Metal Arc Relationship Specialty Start Date End Date None None PCP - General 05/08/12 04/20/14 documented as of this encounter
--- OUTSIDE RECORDS SUMMARY | 2024-02-21 14:49 | XMS_ITS | Encounter Summary ---
Author Organization [facility] [place] [address] Care Team Providers Care Supervisor Sewing Room Name Role Phone None Primary Care Provider Unavailabl e Reason for Visit * Reason Onset Date Comments Medication Refill 06/04/2012 Encounter Details Date Type Department Care Team (Late st Contact Info) Description 06/04/2012 Refill [place] [phone] Griffin Wallis III, MD [facility] [place] [address] Hypothyroidism (Primary Dx) Social History Tobacco Use [...] 03/03/2024 3:00 PM EST Appointment [place] [address] Linda Diaz MD [facility] [place] [address] 03/03/2024 4:00 PM EST Routine Obstetrics and Gynecology at [place] [phone] Linda Diaz MD [facility] MATERNAL [place] [address] 03/03/2024 4:30 PM EST Scheduled View Only Obstetrics and Gynecology at [address] 03/12/2024 10:45 AM EST Office Visit Endocrinology at [place] [address] James Barth DO [facility] [address] ENDOCRINOLOGY [place] [address] 05/23/2024 Hospital Encounter Birthing [place] [phone] Maite Malloy MD [facility] OBSTETRICS [place] [address] documented as of this encounter Visit Diagnoses Diagnosis Hypothyroidism- Primary Unspecified hypothyroidism documented in this encounter Care Teams Supervisor Sewing Room Relationship Specialty Start Date End Date None None PCP - General 05/08/12 04/20/14 documented as of this encounter
--- OUTSIDE RECORDS SUMMARY | 2024-02-21 14:49 | XMS_ITS | Encounter Summary ---
Author Organization [facility] [place] [address] Care Team Providers Care On Site Services Specialist Name Role Phone None Primary Care Provider Unavailabl e Encounter Details Date Type Department Care Team (Latest Contact Info) Description 07/19/2012 10:35 AM EDT - 07/19/2012 11:59 PM EDT Hospital Encounter Ultrasound at [facility] [place] [address] Migraine, unspecified, without mention of intractable migraine [...] 03/03/2024 3:00 PM EST Appointment Radiology at [place] [phone] Linda Diaz MD [facility] [place] [address] 03/03/2024 4:00 PM EST Routine Obstetrics and Gynecology at [place] [phone] Linda Diaz MD [facility] [place] [address] 03/03/2024 4:30 PM EST Scheduled View Only Obstetrics and Gynecology at [place] [phone] 03/12/2024 10:45 AM EST Office Visit Endocrinology at [address] James Barth DO [facility] [place] [address] 05/23/2024 Hospital [place] [phone] Maite Malloy MD [facility] DR OBSTETRICS [place] [address] documented as of this encounter Procedures Procedure [...] Final 07/19/2012 11:21 am) Patient Info ID: ?[id number] ?: ??[birth year] (22 yrs) Name: ?PREETHI Godoy ? Visit Date: 07/19/2012 11:01 am ?LOUISE- ?FRANK Performed By Performed By: ?Ana Laura Urban Attending: ? Kandis LIMA, Latoya Figueroa Referred By: ? E MELANY BAY MD Service(s) Provided UOBTV - Viability - Cervical Length - Transvaginal - ??[id number] Indications Viability, transvaginal Evaluation Num Of Fetuses: [...] Final 07/19/2012 11:21 am) Patient Info ID: [id number] : [birth year] (22 yrs) Name: PREETHI Godoy Visit Date: 07/19/2012 11:01 am LOUISEVishal MARIE Performed By Performed By: Ana Laura Urban Attending: Latoya Marquis MD Referred By: Walt BAY MD Service(s) Provided UOBTV - Viability - Cervical Length - Transvaginal - [id number] Indications Viability, transvaginal Evaluation Num Of Fetuses: [...] high-risk documented in this encounter Care Teams On Site Services Specialist Relationship Specialty Start Date End Date None None PCP - General 05/08/12 04/20/14 documented as of this encounter
--- OUTSIDE RECORDS SUMMARY | 2024-02-21 14:49 | XMS_ITS | Encounter Summary ---
Author Organization [facility] Address [facility] [place] [address] Care Team Providers Care Agent Licensing Clerk Name Role Phone None Primary Care Provider Unavailabl e Encounter Details Date Type Department Care Team (Late st Contact Info) Description 07/27/2012 Telephone Obstetrics [place] [address] Al Bhatti MD [facility] DR OBSTETRICS & [place] [address] Social History Tobacco Use Types Packs/Day Years [...] 03/03/2024 3:00 PM EST [place]oint[place] [address] Linda Diaz MD [facility] MATERNAL [place] [address] 03/03/2024 4:00 PM EST Routine Obstetrics [place] [address] Linda Diaz MD [facility] DR MATERNAL [place] [address] 03/03/2024 4:30 PM EST Scheduled View Only Obstetrics [place] [address] 03/12/2024 10:45 AM EST Office [place] [address] James Barth DO [facility] [place] [address] 05/23/2024 Hospital Encounter Birthing [facility] [place] [phone] Maite Malloy MD [facility] OBSTETRICS [place] [address] documented as of this encounter Visit Diagnoses Not on filedocumented in this encounter Care Teams Agent Licensing Clerk Relationship Specialty Start Date End Date None None PCP - General 05/08/12 04/20/14 documented as of this encounter
--- OUTSIDE RECORDS SUMMARY | 2024-02-21 14:49 | XMS_ITS | Encounter Summary ---
Author Organization [facility] [place] [address] Care Team Providers Care Cell Biology Scientist Name Role Phone None Primary Care Provider Unavailabl e Reason for Visit * Reason Comments Routine Visit Encounter Details Date Type Department Care Team (Latest Contact Info) Description 06/21/2012 1:00 PM EST Routine Obstetrics [place] [address] Maite Marks MD [facility] DR OBSTETRICS [place] [address] GA: 20w3d Discharge Disposition: Home Social History [...] 03/03/2024 3:00 PM EST Appointment Radiology at [place] [address] Linda Diaz MD [facility] [place] [address] 03/03/2024 4:00 PM EST Routine Obstetrics and Gynecology at [address] Linda Diaz MD [facility] [place] [address] 03/03/2024 4:30 PM EST Scheduled View Only Obstetrics and Gynecology at [address] 03/12/2024 10:45 AM EST Office Visit Endocrinology at [address] James Barth DO [facility] [place] [address] 05/23/2024 Hospital [place] [address] Maite Malloy MD [facility] [place] [address] documented as of this encounter Procedures Procedure [...] Urine Dipstick Clear Clear CERNER MILLENNIUM Specific [place] Urine Automated 1.010 1.002 - 1.030 CERNER [...] In Lab Maite Marks MD URINE ORDERABLES [facility] documented in this encounter Visit Diagnoses Diagnosis High-risk supervision- Primary Unspecified high-risk documented in this encounter Care Teams Cell Biology Scientist Relationship Specialty Start Date End Date None None PCP - General 05/08/12 04/20/14 documented as of this encounter
--- OUTSIDE RECORDS SUMMARY | 2024-02-21 14:49 | XMS_ITS | Encounter Summary ---
Author Organization [facility] [place] [address] Care Team Providers Care Centrifugal Station Operator Name Role Phone None Primary Care Provider Unavailabl e Encounter Details Date Type Department Care Team (Latest Contact Info) Description 09/03/2012 7:12 PM EDT - 09/05/2012 10:55 AM EDT [place] [address] Lalita Quan MD [facility] [address] [place] [address] Mely Mccord MD [facility] [address] [place]ST[place] [address] Hypothyroidism (Primary Dx); Threatened labor, antepartum Discharge [...] Luke N - 09/05/2012 10:22 AM EDT [facility] to contact OB doctor [facility] [place] [address] to contact family doctor Following your visit to [facility] Triage ??N?DL?TL?? Reason for Visit: Provider: GESTATION - Less Than 37 Weeks Call your provider if: You are feeling any cramping sensations in your abdomen less than 20 minutes apart Bearcreek-Vazquez Contractions usually are irregular may get less [...] a vaginal exam in your doctor's or bath attendant's office you should not bleed as much [...] dehydration Keep your regularly scheduled doctor or bath attendant appointment NEW MEDICATIONS: SPECIAL INSTRUCTIONS/FOLLOW-UP CARE: documented [...] living with her mother (an RN at [facility]), in [place], [place]. Patient requested information about childbirth classes. Provided flyer for [facility] and offered referral for scholarship. Suggested [...] friends who can visit, andhas a home health outreach coordinator from [facility]. A: Patient is a 22-year-old single woman, here for pre-term labor in setting of 30 week . Patient has a hx of prior loss. Patient is known to from OB Clinic (see Outpatient Care Management note of 06/12/12). Patient is being discharged to home today. Patient currently living with her mother (an RN at [facility]) in [place], [place]. Patient has support from her mother, friends, and [facility]A home health outreach coordinator. Patient with considerable stressors and hx of depression. Has declined medication during this . Patient with hx of substance abuse. (TIFFANIE presumptive + for THC on admission.) P: SW referring patient, at her request, to [facility] for scholarship for childbirth class. 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 Managed by endocrine. Synthroid dose recently decreased from 300mcg QD to 200mcg QD as TSH was 0.03. TSH on 09/02 was 34.90. Discussed with patient's skewer up - increased dose to 250 mcg daily. [...] high-risk Team MFM transfer of care from [facility] Delivery plan GBS date & Result [...] UA Latest Range: Clear Hazy (A) Spec Bushnell UA Latest Range: 1.002-1.030 1.006 pH UA [...] naive, will start mag for tocolysis vs SUSTAINABILITY COORDINATOR PRN progressive labor. Steroid status & Plan: Betamethasone #1 given Diet: clear liquids Ultrasound with cervical length today Consent obtained for CS, possible classical Consultations: none at present Additional Issues: 1. Reported 20 week prior loss 2. 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 Managed by endocrine. 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 Managed by endocrine. Synthroid dose recently decreased [...] NECK DISSECTION performed by JUAN ESPARZA at [facility] MAIN OR ??? Somatosensory test, any/all per. nerves, trunk or head 03/22/2011 FACIAL NERVE MONITORING, SETUP performed by JUAN ESPARZA at [facility] MAIN OR ??? [place] tooth extraction ??? Upper gastrointestinal endoscopy for IBS, celiac excluded ??? Colonoscopy found polyps ??? Tonsillectomy 2010 Prior to Admission Medications Prescriptions prior to admission Medication Sig Dispense Refill ??? fkhzkqdyxc-rcikpzwzrsdsu-hrzolfpg (FIORICET, ESGIC) per tablet Take 1 tablet [...] naive, will start mag for tocolysis vs SUSTAINABILITY COORDINATOR PRN progressive labor. ?? 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 Managed by endocrine. Synthroid dose recently decreased [...] Lalita Quan Discharge Summary Antepartum Care Provider: [facility] Referring Provider if applicable: n/a Discharge Diagnoses (Hospital Problems) and Secondary Diagnoses (Chronic Problems): Active Hospital Problems Diagnoses ??? Threatened labor, antepartum ??? , supervision of, high-risk Team [facility] transfer of care from [facility] Delivery plan GBS date & Result [...] care. ??? 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 Managed by endocrine. Synthroid dose recently decreased [...] tablet, R-2, Normal Continued medications, unchanged Details bipmpwmqhs-ekhsehposgczt-pxwtzzqs (FIORICET, ESGIC) per tablet Take 1 tablet [...] NECK DISSECTION performed by JUAN ESPARZA at [facility] MAIN OR ??? Somatosensory test, any/all per. nerves, trunk or head 03/22/2011 FACIAL NERVE MONITORING, SETUP performed by JUAN ESPARZA at [facility] MAIN OR ??? [place] tooth extraction ??? Upper gastrointestinal endoscopy for [...] GCT - due to macrosomia General Instructions [facility] Cisse to contact OB doctor [facility] Mima to contact bath attendant CRYSTAL Montes to contact family doctor Following [facility] Triage ??N?DL?TL?? Reason for Visit: Provider: GESTATION - Less Than 37 Weeks Call your provider if: You are feeling any cramping sensations in your abdomen less than 20 minutes apart 1. Bearcreek-Vazquez Contractions usually are irregular may get less [...] a vaginal exam in your doctor's or bath attendant's office you should not bleed as much [...] 12. Keep your regularly scheduled doctor or bath attendant appointment NEW MEDICATIONS: SPECIAL INSTRUCTIONS/FOLLOW-UP CARE: Future Appointments and Orders Future Appointments: Provider: Department: Dept Phone: Center: 09/12/2012 11:00 AM Lalita Quan MD Obstetrics and Gynecology [phone] [facility] 11/28/2012 1:40 PM Yaneth Griffith MD Psychiatry and Behavioral Health [phone] [facility] Joint Appt Questionnaire Five D Res-Psych LEB 5D [phone] [facility] Future Orders Please Complete By Expires Schedule appointment [[id number] Custom] Process Instructions: Scheduling Instructions: Comments: Questions: [...] 03/03/2024 3:00 PM EST Appointment [place] [address] Linda Diaz MD [facility] [place] [address] 03/03/2024 4:00 PM EST Routine Obstetrics [place] [address] Linda Diaz MD [facility] [place] [address] 03/03/2024 4:30 PM EST Scheduled View Only Obstetrics [place] [address] 03/12/2024 10:45 AM EST Office Visit [place] [address] James Barth DO [facility] [place] [address] 05/23/2024 [place] [address] Maite Malloy MD [facility] DR [place] [address] documented as of this encounter Procedures Procedure Name Priority Date/Time Associated Diagnosis Comments US OB FOLLOW UP Routine 09/04/2012 3:00 PM EDT URINALYSIS WITH REFLEX CULTURE Routine 09/03/2012 10:53 PM EDT URINE CULTURE Routine 09/03/2012 10:46 PM EDT HEPATITIS B SURFACE ANTIGEN Routine 09/03/2012 8:45 PM EDT HIV SCREEN, 4TH GENERATION (CARIE/NL) Routine 09/03/2012 7:45 PM EDT SCAN, PERIPHERAL BLOOD Routine 3 7:45 PM EDT DIFFERENTIAL, AUTOMATED Routine 09/03/2012 7:45 PM EDT ABO/RH TYPING Routine 09/03/2012 7:45 PM EDT CBC (WITH DIFF) Routine 09/03/2012 7:45 PM EDT ANTIBODY SCREEN Routine 09/03/2012 7:45 PM EDT TYPE AND SCREEN (MC/CGP/CARIE) Routine 09/03/2012 7:45 PM EDT GROUP B [...] 09/04/2012 03:08 pm) Patient Info ID: ? [id number] ? : ??[birth year] (22 yrs) Name: ? SORURVASHI E ?Visit Date: 09/04/2012 02:50 pm ? LOUISE- ? FRANK Performed By Performed By: ?Ana Laura Urban Attending: ? Lalita Quan MD Referred By: ? CHUCK JANE MD Service(s) Provided UOBFOL - Efw - Growth - Reevaluation - [place] ?[id number] - [id number] Indications 22yo at 30.0 wks admitted for [...] Final 09/04/2012 03:08 pm) Patient Info ID: [id number] : [birth year] (22 yrs) Name: PREETHI Godoy Visit Date: 09/04/2012 02:50 pm MARIO MARIE Performed By Performed By: Ana Laura Urban Attending: Lalita Quan MD Referred By: CHUCK JANE MD Service(s) Provided UOBFOL - Efw - Growth - Reevaluation - [place] [id number] - [id number] Indications 22yo at 30.0 wks admitted for [...] Urine Dipstick Hazy(A) Clear CERNER MILLENNIUM Specific Bushnell Urine Automated 1.006 1.002 - 1.030 CERNER [...] Resulting Agency Comment Spec In Lab Mely Mcocrd MD URINE ORDERABLES HANNAH SERRANO * Urine culture Clean Catch Urine (09/03/2012 10:46 PM EDT) Urine Culture ? Patient Name: MELONY AMIN, ?? Ordered By: LALITA UQAN ? SORCHA E ? MR#: [id number] ?LOC: ??BP ? /Sex: ??1990 (22 years), ? Female ? PROCEDURE: Urine Culture ?SOURCE: U CC ? COLLECTED: 09/03/2012 22:46 ? STARTED: 09/04/2012 07:08 ? FINAL REPORT ? Final Report ? Verified:2012 07:52 ? 1,000-9,000 cfu/ml Gram Positive organisms , probable contaminant ? HANNAH SERRANO Urine specimen obtained by clean catch procedure (specimen) 09/03/2012 10:46 PM EDT 09/04/2012 7:08 AM EDT Narrative Resulting Agency Comment Spec In Lab Lalita Quan MD MICROBIOLOGY - GEN ERAL ORDERABLES HANNAH POTTERIUM * Hepatitis B Surface Antigen (09/03/2012 8:45 PM EDT) Hepatitis B Surface Antigen Negative Negative CERNER MILLENNIUM Blood specimen (specimen) 09/03/2012 8:45 PM EDT 09/03/2012 8:55 PM EDT Narrative Resulting Agency Comment Spec In Lab Mely Mccord MD CHEMISTRY ORDERABLES HANNAH HARKINSENNIUM * (ABNORMAL) Differential, Automated (09/03/2012 7:45 PM EDT) Neutrophil % 72.9(H) 34.0 - 71.0 % [...] 0.00 0.00 - 0.05 x10(3)/mc L [facility] Blood specimen (specimen) 09/03/2012 7:45 PM EDT 09/03/2012 8:05 PM EDT Lalita Quan MD HEMATOLOGY ORDERAB LES Performing Organization Address City/[facility]/ZIP Co de Phone Number [facility] * Scan, Peripheral Blood (09/03/2012 7:45 PM EDT) Plat estimate Normal [facility] RBC Morphology Abnormal CERNE R [facility] Macrocyte 1-5 /HPF [facility] Blood specimen (specimen) 09/03/2012 7:45 PM EDT 09/03/2012 8:05 PM EDT Narrative Resulting Agency Comment Spec In Lab Lalita Quan MD HEMATOLOGY ORDERAB LES Performing Organization Address [facility]/ZIP Co de Phone Number [facility] * HIV Antibody Rapid Test (09/03/2012 7:45 PM EDT) [facility] HIV Ab/Ag Rapid Non-Reactive Non-React pancho [facility] Comment:Testing done by [employer] me Immunoassay. HIV Comment Negative screening test indicates low risk of HIV exposure. Called by: RANDI_, Read back by: Lia Rogers_, Date/Time:_ 21:45. [facility] Blood specimen (specimen) 09/03/2012 7:45 PM EDT 09/03/2012 9:19 PM EDT Narrative Resulting Agency Comment Spec In Lab Lalita Quan MD CHEMISTRY ORDERABL ES [facility] * Antibody screen (09/03/2012 7:45 PM EDT) [facility] Ab Screen Interp Negative [facility] Expires at [id number] on: [id number] [facility] Blood specimen (specimen) 09/03/2012 7:45 PM EDT 09/03/2012 8:08 PM EDT Narrative Resulting Agency Comment Spec In Lab Lalita Quan MD BLOOD BANK LAB ORD ERABLES CERNER MILLENNIUM * ABO/Rh Typing (09/03/2012 7:45 PM EDT) ABORH Type A Pos CERNER MILLENNIUM Blood specimen (specimen) 09/03/2012 7:45 PM EDT 09/03/2012 8:08 PM EDT Narrative Resulting Agency Comment Spec In Lab Lalita Quan MD BLOOD BANK LAB ORD ERABLES CERNER MILLENNIUM * (ABNORMAL) CBC (with Diff) (09/03/2012 7:45 [...] MD HEMATOLOGY ORDERAB LES HANNAH POTTERIUM * Group B Streptococcus Screen (09/03/2012 7:08 PM EDT) GBS Screen Neg CERNER MILLENNIUM Pooled specimen from vaginal introitus and rectal swab (specimen) 09/03/2012 7:08 PM EDT 09/03/2012 7:31 PM EDT Comment:PENICILLIN ALLERGY?- >NO Narrative Resulting Agency Comment Spec In Lab Lalita Quan MD MICROBIOLOGY - GEN ERAL ORDERABLES Performing Organization Address City/[facility]/ZIP Co de Phone Number CERSWETA POTTERIUM * (ABNORMAL) Urinalysis with microscopic (09/03/2012 7:08 [...] Urine Dipstick Hazy(A) Clear CERNER MILLENNIUM Specific Bushnell Urine Automated 1.019 1.002 - 1.030 CERNER [...] Lab Lalita Quan MD URINE ORDERABLES HANNAH SERRANO * (ABNORMAL) Rapid Qual Drug Screen, Urine ([facility]) (09/03/2012 7:08 PM EDT) TIFFANIE Marijuana Metabolites Screen Presumptive Pos(A) None Detected HANNAH SERRANO Comment: Please note that as of 04/12/2012 the testing device changed to the PROFILE-V MEDTOXScan Drugs of Abuse Test System. The marijuana metabolites screen detects the THC Metabolite (13-flr-6-carboxy- 9-THC) ??at concentrations >50 ng/mL. Be aware [...] Screen, Urine None Detected None Detected HANNAH TORINBRINAIUM Comment: Please note that as of 04/12/2012 [...] Cocaine Metabolites Screen None Detected None Detected HANNAH TORINBRINAIUM Comment: Please note that as of 04/12/2012 [...] the testing device changed to the PROFILE-V eZWay Drugs of Abuse Test System. The buprenorphine [...] Lab Lalita Quan MD URINE ORDERABLES [facility] * Group B Strep Culture Screen (09/03/2012 7:08 PM EDT) Group B Streptococcus Culture ? Patient Name: NICHELLE STEPHEN, ?? Ordered By: LALITA QUAN ? SORCHA E ? MR#: [id number] ?LOC: ??BP ? /Sex: ??1990 (22 years), ? Female ? PROCEDURE: Group B Streptococcus Culture ?SOURCE: Vag/Rectal ? COLLECTED: 09/03/2012 19:08 ?FREE TEXT SOURCE: Penicillin Allergy?->No ? STARTED: 09/03/2012 19:31 ? FINAL REPORT ? Final Report ? Verified: 10:07 ? No Group B Streptococci isolated ? PRELIMINARY REPORT ? Preliminary Report ? Verified: 13:42 ? Culture in progress ? [facility] Pooled specimen from vaginal introitus and rectal swab (specimen) 09/03/2012 7:08 PM EDT 09/03/2012 7:31 PM EDT Comment:PENICILLIN ALLERGY?- >NO Narrative Resulting Agency Comment Spec In Lab Lalita Quan MD MICROBIOLOGY - GEN ERAL ORDERABLES [facility] documented in this encounter Visit Diagnoses Diagnosis [...] PM EDT 8 mg vitamin 27 & ywdpwyv-jcva-XS 60 mg iron-1 mg tablet Tab 1 [...] Carmen Cisneros RN) 0400 (Given - Provider: Carmen Cisneros RN) vitamin 27 & sjkjbhx-wlso-OG 60 mg iron-1 mg tablet Tab 1 tablet (CANCELED) 1 tablet, Oral, DAILY, First dose on Sun09/03/12 at 1930, Until Discontinued, Routine 193 (Not Given - Provider: Genet Chun RN - Reason: NPO) 0900 (Given - Provider: Eve Friedman, RTE) 0834 (Given - Provider: Maite Luke) sodium chloride 0.9 % flush 5 mL (CANCELED) 5 mL, Intravenous, EVERY 12 HOURS, First dose on Sun09/03/12 at 1930, Until Discontinued 193 (Given - Provider: Genet Chun RN) 0730 (Given - Provider: Eve Friedman, RN)193 (Due) 0759 (Given - Provider: Maite Luke) [...] Vomiting 1236 (Given - Provider: Eve Friedman, TRE) zolpidem (AMBIEN) tablet 5 mg (CANCELED) 5 mg, Oral, NIGHTLY PRN, Starting on Sun09/03/12 at 1906, Until Sherrie 09/05/12 at 1257, Sleep, Routine 2307 (Given - Provider: Genet Chun RN) 2135 (Given - Provider: Carmen Cisneros RN) Linked Groups Order Group 1: NIFEdipine (PROCARDIA) capsule 20 mg (COMPLETED)Jump to med 20 mg, Oral, ONCE, 1 dose, On Sun09/04/12 at 1145, May repeat in 30 minutes if still jeimma, Routine Followed by NIFEdipine (PROCARDIA) capsule 20 mg (CANCELED)Jump to med 20 mg, Oral, EVERY 8 HOURS, First dose on Sun09/04/12 at 1945, Until Discontinued, Hold NIFEdipine for blood pressure less than 85/55 mmHg and notify provider, Routine documented in this encounter Care Teams Centrifugal Station Operator Relationship Specialty Start Date End Date None None PCP - General 05/08/12 04/20/14 documented as of this encounter
--- OUTSIDE RECORDS SUMMARY | 2024-02-21 14:49 | XMS_ITS | Encounter Summary ---
Author Organization [facility] [place] [address] Care Team Providers Care Hardwood Floor Refinisher Name Role Phone Mya Varghese MD Primary Care Provider [phone] Reason for Visit * Reason Comments Follow Up Surgery Encounter Details Date Type Department Care Team (Late st Contact Info) Description 05/10/2011 11:30 AM EST Office [place] [phone] Marlo Ko MD [facility] [place] [address] Follicular adenoma of thyroid gland; Hypothyroidism, postsurgical [...] AM EST Reason for Visit: Andree Godoy WallisCorrinaTamara returns. History of Present Illness: She is [...] 03/03/2024 3:00 PM [place] [address] Linda Diaz MD [facility] DR [place] [address] 03/03/2024 4:00 PM EST Routine Obstetrics and Gynecology at [place] [phone] Linda Diaz MD [facility] [place] [address] 03/03/2024 4:30 PM EST Scheduled View Only Obstetrics [place] [address] 03/12/2024 10:45 AM EST Office Visit Endocrinology at [place] [phone] James Barth DO [facility] ENDOCRINOLOGY DEPT [place], [place] [phone] 05/23/2024 [place] [address] Maite Malloy MD [facility] DR OBSTETRICS [place] [address] documented as of this encounter Procedures Procedure Name Priority Date/Time Associated Diagnosis Comments TSH Routine 05/10/2011 8:03 AM EST Follicular adenoma of thyroid gland T4 TOTAL Routine 05/10/2011 8:03 AM EST Follicular adenoma of thyroid gland documented in this encounter Results * (ABNORMAL) TSH (05/10/2011 8:03 AM EST) Thyroid Stimulating Hormone 111.10(H) 0.27 - 4.20 mcIU/mL HANNAH [facility] Blood specimen (specimen) 05/10/2011 8:03 AM EST 05/10/2011 8:10 AM EST Marlo Ko MD CHEMISTRY ORDERABL ES Performing Organization Address [facility] Co de Phone Number [facility] * (ABNORMAL) T4 (05/10/2011 8:03 AM EST) T4 Total 4.0(L) 5.1 - 10.8 mcg/dL [facility] Comment: Reference Range: Barnwell Cord Blood: ??6.9-14.4 mcg/dL Females: ??7.2-14.2 mcg/dL Pediatric ranges: ??Interpret with caution-ranges have not been verified Blood specimen (specimen) 05/10/2011 8:03 AM EST 05/10/2011 8:10 AM EST Marlo Ko MD CHEMISTRY ORDERABL ES Performing Organization Address [facility] de Phone Number HANNAH SERRANO documented in this encounter Visit Diagnoses Diagnosis Follicular adenoma of thyroid gland Benign neoplasm of thyroid glands Hypothyroidism, postsurgical Postsurgical hypothyroidism documented in this encounter Care Teams Hardwood Floor Refinisher Relationship Specialty Start Date End Date Mya Varghese MD [address] [place] [address] PCP - General 05/10/11 05/07/12 documented as of this encounter
--- OUTSIDE RECORDS SUMMARY | 2024-02-21 14:49 | XMS_ITS | Encounter Summary ---
Author Organization [facility] Address [facility] [place] [address] Care Team Providers Care Track Fitter Name Role Phone None Primary Care Provider Unavailabl e Encounter Details Date Type Department Care Team (Latest Contact Info) Description 03/29/2011 - 03/29/2011 11:59 PM EST Hospital Encounter Radiology Library at [facility] [place] [address] Kedar Santos MD [facility] [place] [address] Discharge Disposition: Home Social History Tobacco Use [...] 03/03/2024 3:00 PM EST Appointment Radiology at [place] [phone] Linda Diaz MD [facility] [place]ER[place] [address] 03/03/2024 4:00 PM EST Routine Obstetrics and Gynecology at [place] [phone] Linda Diaz MD [facility] [place] [address] 03/03/2024 4:30 PM EST Scheduled View Only Obstetrics and Gynecology at [place] [phone] 03/12/2024 10:45 AM EST Office Visit Endocrinology at [place] [phone] James Barth DO [facility] [place] [address] 05/23/2024 [facility] [place] [address] Maite Malloy MD [facility] DR OBSTETRICS [place] [address] documented as of this encounter Procedures Procedure [...] Santos MD IM FILM LIBRARY ORD ERABLES [place], [place] documented in this encounter Visit Diagnoses Not on filedocumented in this encounter Care Teams Track Fitter Relationship Specialty Start Date End Date None None PCP - General 02/23/11 05/09/11 documented as of this encounter
--- OUTSIDE RECORDS SUMMARY | 2024-02-21 14:49 | XMS_ITS | Encounter Summary ---
Author Organization [facility] [place] [address] Care Team Providers Care Cra Name Role Phone None Primary Care Provider Unavailabl e Encounter Details Date Type Department Care Team (Late st Contact Info) Description 06/12/2012 10:45 AM EST Routine Obstetrics [place] [address] CLINIC, Lalita Bond MD [facility] DR OBSTETRICS [place] [address] GA: [id number] Discharge Disposition: Home Social History [...] 03/03/2024 3:00 PM EST Appointment Radiology at [address] Linda Diaz MD [facility] [place] [address] 03/03/2024 4:00 PM EST Routine Obstetrics and Gynecology at [address] Linda Diaz MD [facility] MATERNAL [place] [address] 03/03/2024 4:30 PM EST Scheduled View Only Obstetrics and Gynecology at [address] 03/12/2024 10:45 AM EST Office Visit Endocrinology at [address] James Barth DO [facility] [place] [address] 05/23/2024 Hospital Encounter [place]thing [place] [phone] Maite Malloy MD [facility] DR OBSTETRICS [place] [address] documented as of this encounter Results * US OB transvaginal (07/04/2012 3:08 PM EDT) Anatomical Region Laterality Modality Pelvis, Abdomen Ultrasound 07/04/2012 3:08 PM EDT Narrative 07/04/2012 3:20 PM EDT ?OBSTETRICS REPORT ? (Signed Final 07/04/2012 03:20 pm) Patient Info ID: ? [id number] ? : ??[birth year] (22 yrs) Name: ? PREETHI Godoy ?Visit Date: 07/04/2012 03:03 pm ? LOUISE- ? FRANK Performed By Performed By: ?Itzel Lezama RDMS Attending: ? Anca LIMA, Phylicia J. Referred By: ? LALITA QUAN MD Service(s) Provided UOBTV - Viability - Cervical Length - Transvaginal - ??[id number] Indications cervical length Evaluation Num Of Fetuses: [...] participate in the care of PREETHI Walt WHITINGWALLISELLYN. Please do not hesitate to call if you have any questions. ?Phyliciase Megan March MD Electronically Signed Final Report ?? 07/04/2012 03:20 pm Procedure Note Phylicia March MD - 07/04/2012 OBSTETRICS REPORT (Signed Final 07/04/2012 03:20 pm) Patient Info ID: [id number] : [birth year] (22 yrs) Name: PREETHI Godoy Visit Date: 07/04/2012 03:03 pm MARIO MARIE Performed By Performed By: Itzel Lezama RDMS Attending: Phylicia March MD Referred By: LALITA QUAN MD Service(s) Provided UOBTV - Viability - Cervical Length - Transvaginal - [id number] Indications cervical length Evaluation Num Of Fetuses: [...] to participate in the care of PREETHI WALLISSILVIOFRANK. Please do not hesitate to call if [...] of documented in this encounter Care Teams Cra Relationship Specialty Start Date End Date None None PCP - General 05/08/12 04/20/14 documented as of this encounter
--- OUTSIDE RECORDS SUMMARY | 2024-02-21 14:49 | XMS_ITS | Encounter Summary ---
Author Organization [facility] Address [facility] [place] [address] Care Team Providers Care Private Tutor Name Role Phone None Primary Care Provider Unavailabl e Encounter Details Date Type Department Care Team (Late st Contact Info) Description 08/03/2012 Telephone Obstetrics [place] [address] Mely Klein MD [facility] DR OBSTETRICS & [place] [address] Social History Tobacco Use Types Packs/Day Years [...] she can or she may go to [facility] for initial evaluation because she lives so far away, but she will be seen today. documented in this encounter Plan of Treatment Upcoming Encounters Date Type Department Care Team (Late st Contact Info) Description 03/03/2024 3:00 PM EST Appointment Radiology at [place] [phone] Linda Diaz MD [facility] [place] [address] 03/03/2024 4:00 PM EST Routine Obstetrics and Gynecology at [place] [phone] Linda Diaz MD [facility] [place] [address] 03/03/2024 4:30 PM EST Scheduled View Only Obstetrics and Gynecology at [place] [phone] 03/12/2024 10:45 AM EST Office Visit Endocrinology at [address]1000 James Barth DO [facility] [place] [address] 05/23/2024 Hospital Encounter [place] [phone] Maite Malloy MD [facility] DR OBSTETRICS [place] [address] documented as of this encounter Visit Diagnoses Not on filedocumented in this encounter Care Teams Private Tutor Relationship Specialty Start Date End Date None None PCP - General 05/08/12 04/20/14 documented as of this encounter
--- OUTSIDE RECORDS SUMMARY | 2024-02-21 14:49 | XMS_ITS | Encounter Summary ---
Author Organization [facility] Address [facility] [place] [address] Care Team Providers Care Silk Screen Cutter Name Role Phone None Primary Care Provider Unavailabl e Encounter Details Date Type Department Care Team (Late st Contact Info) Description 03/23/2011 Orders [place] [phone] Chloé Santa RN Social History Tobacco Use [...] 03/03/2024 3:00 PM [place] [address] Linda Diaz MD [facility] [place] [address] 03/03/2024 4:00 PM EST Routine Obstetrics [place] [address] Linda Diaz MD [facility] [place] [address] 03/03/2024 4:30 PM EST Scheduled View Only Obstetrics [place] [address] 03/12/2024 10:45 AM EST Office [place] [phone] James Barth DO [facility] [place] [address] 05/23/2024 [place] [address] Maite Malloy MD [facility] DR OBSTETRICS [place] [address] documented as of this encounter Visit Diagnoses Not on filedocumented in this encounter Care Teams Silk Screen Cutter Relationship Specialty Start Date End Date None None PCP - General 02/23/11 05/09/11 documented as of this encounter
--- OUTSIDE RECORDS SUMMARY | 2024-02-21 14:49 | XMS_ITS | Encounter Summary ---
Author Organization [facility] Address [facility] [place] [address] Care Team Providers Care Control Room Helper Name Role Phone None Primary Care Provider Unavailabl e Encounter Details Date Type Department Care Team (Late st Contact Info) Description 08/04/2012 Telephone Obstetrics [place] [address] Mely Klein MD [facility] DR OBSTETRICS & [place] [address] Social History Tobacco Use Types Packs/Day Years [...] PM EST Appointment Radiology at [place] [phone] Linda Diaz MD [facility] MATERNAL [place] [address] 03/03/2024 4:00 PM EST Routine Obstetrics and Gynecology at [place] [phone] Linda Diaz MD [facility] MATERNAL [place] [address] 03/03/2024 4:30 PM EST Scheduled View Only Obstetrics and Gynecology at [place] [phone] 03/12/2024 10:45 AM EST Office Visit Endocrinology at [place] [address] James Barth DO [facility] DR [place] [address] 05/23/2024 Hospital Encounter [place] [phone] Maite Malloy MD [facility] OBSTETRICS [place] [address] documented as of this encounter Visit Diagnoses Not on filedocumented in this encounter Care Teams Control Room Helper Relationship Specialty Start Date End Date None None PCP - General 05/08/12 04/20/14 documented as of this encounter
--- OUTSIDE RECORDS SUMMARY | 2024-02-21 14:49 | XMS_ITS | Encounter Summary ---
Author Organization [facility] Address [facility] [place] [address] Care Team Providers Care Design Checker Name Role Phone None Primary Care Provider Unavailabl e Encounter Details Date Type Department Care Team (Late st Contact Info) Description 03/23/2011 Orders [place] [phone] Chloé Santa RN Social History Tobacco Use [...] 03/03/2024 3:00 PM EST [place] [address] Linda Diaz MD [facility] [place] [address] 03/03/2024 4:00 PM EST Routine Obstetrics [place] [address] Linda Diaz MD [facility] [place] [address] 03/03/2024 4:30 PM EST Scheduled View Only Obstetrics [place] [address] 03/12/2024 10:45 AM EST Office [place] [phone] James Barth DO [facility] [place] [address] 05/23/2024 Hospital [place] [address] Maite Malloy MD [facility] DR [place] [address] documented as of this encounter Visit Diagnoses Not on filedocumented in this encounter Care Teams Design Checker Relationship Specialty Start Date End Date None None PCP - General 02/23/11 05/09/11 documented as of this encounter
--- OUTSIDE RECORDS SUMMARY | 2024-02-21 14:49 | XMS_ITS | Encounter Summary ---
Author Organization [facility] [place] [address] Care Team Providers Care Road Engineer Name Role Phone None Primary Care Provider Unavailabl e Reason for Visit * Reason Onset Date Comments Medication Refill 08/08/2012 Encounter Details Date Type Department Care Team (Late st Contact Info) Description 08/08/2012 [place] [phone] Griffin Wallis III, MD [facility] DR ENDOCRINOLOGY [place] [address] Hypothyroidism (Primary Dx) Social History Tobacco Use [...] 03/03/2024 3:00 PM [place] [address] Linda Diaz MD [facility] MATERNAL [place] [address] 03/03/2024 4:00 PM EST Routine Obstetrics and Gynecology at [place] [phone] Linda Diaz MD [facility] [place] [address] 03/03/2024 4:30 PM EST Scheduled View Only Obstetrics and Gynecology at [address] 03/12/2024 10:45 AM EST Office Visit Endocrinology at [place] [address] James Barth DO [facility] [place] [address] 05/23/2024 Hospital Encounter Birthing [place] [phone] Maite Malloy MD [facility] OBSTETRICS [place] [address] documented as of this encounter Visit Diagnoses Diagnosis Hypothyroidism- Primary Unspecified hypothyroidism documented in this encounter Care Teams Road Engineer Relationship Specialty Start Date End Date None None PCP - General 05/08/12 04/20/14 documented as of this encounter
--- OUTSIDE RECORDS SUMMARY | 2024-02-21 14:50 | XMS_ITS | Encounter Summary ---
Author Organization [facility] [place] [address] Care Team Providers Care Guest Request Runner Name Role Phone None Primary Care Provider Unavailabl e Reason for Visit * Reason Onset Date Comments Thyroid Problem 02/28/2011 Encounter Details Date Type Department Care Team ([facility] st Contact Info) Description 02/28/2011 Telephone [place] [phone] Jona Dickinson MD [address] [place] [address] Thyroid Problem Social History Tobacco Use Types [...] apart - needle sampling simply cannot. At [facility], this result is associated with an 18% [...] 03/03/2024 3:00 PM EST Appoint[place] [address] Linda Diaz MD [facility] [place] [address] 03/03/2024 4:00 PM EST Routine Obstetrics and Gynecology at [place] [phone] Linda Diaz MD [facility] [place] [address] 03/03/2024 4:30 PM EST Scheduled View Only Obstetrics [place] [address] 03/12/2024 10:45 AM EST Office Visit Endocrinology at [place] [address] James Barth DO [facility] [place] [address] 05/23/2024 Hospital Encounter Birthing [place] [phone] Maite Malloy MD [facility] DR [place] [address] documented as of this encounter Visit Diagnoses Not on filedocumented in this encounter Care Teams Guest Request Runner Relationship Specialty Start Date End Date None None PCP - General 02/23/11 05/09/11 documented as of this encounter
--- OUTSIDE RECORDS SUMMARY | 2024-02-21 14:50 | XMS_ITS | Encounter Summary ---
Author Organization [facility] Address [address] [place] [address] Care Team Providers Care Scraper Hand Name Role Phone None, Provider Primary Care Provider Tatum Marcelino MD Unavailable [phone] Encounter Details Date Type Department Care Team (Late st Contact Info) Description 03/08/2021 Lab Requisition [facility] Pathology & Laboratory Medicine - [address] 7[address]41 Outr Resulting Lab, Provider Social History Tobacco [...] 2.8 - 5.3 pg/mL 03/08/2021 21:47 EST [facility] Blood VENOUS BLOOD / Unknown 03/08/2021 10:45 EST 03/08/2021 21:09 EST Provider Outr Resulting Lab CHEMISTRY & BLOOD GAS ORDERABLES [facility] [address] [place] [address] documented in this encounter Visit Diagnoses Not on filedocumented in this encounter Care Teams Scraper Hand Relationship Specialty Start Date End Date None, Provider PCP - General 09/08/13 Tatum Lugo MD [address] [place] [phone] 09/08/13 documented as of this encounter
--- OUTSIDE RECORDS SUMMARY | 2024-02-21 14:50 | XMS_ITS | Encounter Summary ---
Author Organization [facility] Address [address] [place] [address] Care Team Providers Care Police Superintendent Name Role Phone Tatum Arevalo MD Primary Care Provider Encounter Details Date Type Department Care Team (Late st Contact Info) Description 05/14/2007 Results Only [facility] - [address] [phone] Harsha Kingston MD [address] [place] [phone] Social History Tobacco Use Types Packs/Day Years [...] ? ANDREE ROJAS ? Accession #: ? [id number] ? : ? 1990 (Age: 16) ??F [...] ? E ?Synaptophysin (Snp88, Biogenex) ? Non-contributory Lead Generator sections from the stomach and duodenum were [...] reagents' ??performance characteristics have been determined by [facility]. ??This laboratory is certified under the [...] cm. ??Submitted in toto as (K). ??(Jadon Cheney[place] End of Report [facility] 05/14/2007 05/14/2007 12: 18 EST Harsha Kingston MD PATHOLOGY ORD ERABLES [facility] [address] [place] [address] documented in this encounter Visit Diagnoses Not on filedocumented in this encounter Care Teams Police Superintendent Relationship Specialty Start Date End Date Tatum Arevalo MD [address] [place] [phone] PCP - General 08/06/08 11/13/10 documented as of this encounter
--- OUTSIDE RECORDS SUMMARY | 2024-02-21 14:50 | XMS_ITS | Encounter Summary ---
Author Organization [facility] [place] [address] Care Team Providers Care Crack Off Person Name Role Phone None Primary Care Provider Unavailabl e Reason for Visit * Reason Comments Other Thyroid Nodule Encounter Details Date Type Department Care Team (Late st Contact Info) Description 03/08/2011 10:30 AM EST Office [place] [phone] Marlo Ko MD [facility] [place] [place] [address] Thyroid nodule (Primary Dx) Discharge Disposition: Home [...] on physical exam. ROS: No H/O asthma, ME, stroke, pulmonary embolus or phlebitis. Comprehensive review [...] 03/03/2024 3:00 PM EST Appointment Radiology at [address]1000 Linda Diaz MD [facility] [place] [address] 03/03/2024 4:00 PM EST Routine Obstetrics and Gynecology at [address]1000 Linda Diaz MD [facility] [place] [address] 03/03/2024 4:30 PM EST Scheduled View Only Obstetrics and Gynecology at [address]1000 03/12/2024 10:45 AM EST Office Visit Endocrinology at [place] [address] James Barth DO [facility] [place] [address] 05/23/2024 Hospital Encounter Birthing [place] [phone] Maite Malloy MD [facility] OB[place] [address] documented as of this encounter Procedures Procedure Name Priority Date/Time Associated Diagnosis Comments THYROIDECTOMY,FOR MALIGNANCY, LIMITED NECK DISSECTION Routine 03/08/2011 11:10 AM EST documented in this encounter Visit Diagnoses Diagnosis Thyroid nodule- Primary Nontoxic uninodular goiter documented in this encounter Care Teams Crack Off Person Relationship Specialty Start Date End Date None None PCP - General 02/23/11 05/09/11 documented as of this encounter
--- OUTSIDE RECORDS SUMMARY | 2024-02-21 14:50 | XMS_ITS | Encounter Summary ---
Author Organization [facility] Address [address] [place] [address] Care Team Providers Care House Wrecker Name Role Phone Unavailable Primary Care Provider Unavailabl e Encounter Details Date Type Department Care Team (Late st Contact Info) Description 05/24/2007 11:52 [facility] Hospital Encounter [address] [address] Harsha Kingston MD [address] [place] [phone] Social History Tobacco Use Types Packs/Day Years [...]
--- OUTSIDE RECORDS SUMMARY | 2024-02-21 14:50 | XMS_ITS | Encounter Summary ---
Author Organization [facility] Address [address] [place] [address] Care Team Providers Care Traveling Construction Superintendent Name Role Phone None, Provider Primary Care Provider Tatum Marcelino MD Unavailable [phone] Encounter Details Date Type Department Care Team (Late st Contact Info) Description 01/30/2020 Lab Requisition [facility] Pathology & Laboratory Medicine - [address] [address] Outr Resulting Lab, Provider Social History Tobacco [...] Outr Resulting Lab MICROBIOLOGY - GENERAL ORDERABLES [facility] [address] [place] [address] * COVID-19 TESTING (01/30/2020 9:58 EDT) COVID-19 rt-PCR Result Negative Negative 01/31/2020 1:45 EDT [facility] Comment: This test has [...] history, and epidemiological information. Performed on the CloudAccess Fusion instrument Performing Lab [place] [facility] Lab 01/31/2020 1:45 EDT [facility] Swab 01/30/2020 9:58 EDT 01/30/2020 15:44 EDT Provider Outr Resulting Lab MICROBIOLOGY - GENERAL ORDERABLES [facility] [address] [place] [address] documented in this encounter Visit Diagnoses Not on filedocumented in this encounter Care Teams Traveling Construction Superintendent Relationship Specialty Start Date End Date None, Provider PCP - General 09/08/13 Tatum Lugo MD [address] [place] [phone] 09/08/13 documented as of this encounter
--- OUTSIDE RECORDS SUMMARY | 2024-02-21 14:50 | XMS_ITS | Referral Summary ---
Author Organization [facility] Address [address] [place] [address] Care Team Providers Care Gi Technician Name Role Phone None, Provider Primary Care Provider Tatum Marcelino MD Unavailable [phone] Allergies Active Allergy Reactions Criticality Noted [...] ? ANDREE ROJAS ? Accession #: ? [id number] : ? 1990 (Age: 26) ??F ?Collect Date: ? 05/21/2017 Location: ? [facility] ? Receive Date: ? 05/23/2017 Provider: ?RUSSELL VIVEROS [employer] Copy to: ? Specimen/Source: ?Pap Test, Cervix, [...] Date: ??05/29/2017 10:03 End of Report [facility] 05/21/2017 05/23/2017 Russell Warner [employer] PATHOLOGY ORDERA SAMUELS [facility] [address] [place] [address] from Last 3 Months or Most Recently Relevant to Health Maintenance Care Teams Gi Technician Relationship Specialty Start Date End Date None, Provider PCP - General 09/08/13 Tatum Lugo MD [address] [place] [phone] 09/08/13
--- OUTSIDE RECORDS SUMMARY | 2024-02-21 14:50 | XMS_ITS | Encounter Summary ---
Author Organization [facility] Address [address] [place] [address] Care Team Providers Care Cork Insulation Setter Name Role Phone None, Provider Primary Care Provider Tatum Marcelino MD Unavailable [phone] Encounter Details Date Type Department Care Team ([facility] st Contact Info) Description 10/09/2013 Results Only [facility] [phone] Jose Enrique Pacheco MD [address] [place] [phone] Social History Tobacco Use Types Packs/Day Years [...] Chlamydia Result CHLAMYDIA TRACHOMATIS DNA detected by residential director mediated amplification.(A ) [facility] GC Result No Neisseria gonorrhoeae DNA detected by residential director mediated amplification. [facility] 10/09/2013 12:4 5 EDT 10/09/2013 15:02 EDT Jose Enrique Pacheco MD MICROBIOLOGY - GENER AL ORDERABLES Performing Organization Address City/[facility] Co de Phone Number [facility] [address] [place] [address] * VAGINITIS EXAM (10/09/2013 12:45 EDT) Specimen [...] - GENER AL ORDERABLES Performing Organization Address [facility] de Phone Number [facility] [address] [place] [address] documented in this encounter Visit Diagnoses Not on filedocumented in this encounter Care Teams Cork Insulation Setter Relationship Specialty Start Date End Date None, Provider PCP - General 09/08/13 Tatum Lugo MD [address] [place] [phone] 09/08/13 documented as of this encounter
--- OUTSIDE RECORDS SUMMARY | 2024-02-21 14:50 | XMS_ITS | Encounter Summary ---
Author Organization [facility] Address [address] [place] [address] Care Team Providers Care Candle Wrapping Machine Operator Name Role Phone None, Provider Primary Care Provider Tatum Marcelino MD Unavailable [phone] Reason for Visit * Reason Comments Knee Injury pt tripped over david r and landed on knee - severe pain. Encounter Details Date Type Department Care Team (Late st Contact Info) Description 09/08/2013 19:26 EDT - 09/08/2013 20:51 EDT Emergency [facility] Emergency Department - Main [place] [address] [place] [phone] Lucas Guajardo PA-C [address] [place] [address] [place] [phone] Emergency, MD Francis Knee sprain (Primary Dx) [...] preliminary report dictated by Fady Jose MD, bank president. Procedures ED Course: A medical screening [...] Sun09/08/13 at 2100, STAT 6 (Given - [facility] er: Nohemi Murray RN) documented in this encounter Care Teams Candle Wrapping Machine Operator Relationship Specialty Start Date End Date None, Provider PCP - General 09/08/13 Tatum Lugo MD [address] [place] [phone] 09/08/13 documented as of this encounter
--- OUTSIDE RECORDS SUMMARY | 2024-02-21 14:50 | XMS_ITS | Encounter Summary ---
Author Organization [facility] Address [address] [place] [address] Care Team Providers Care Technical Support Representative Name Role Phone None, Provider Primary Care Provider Tatum Marcelino MD Unavailable [phone] Encounter Details Date Type Department Care Team (Late st Contact Info) Description 01/30/2020 Lab Requisition [facility] Pathology & Laboratory Medicine - [address] [address] Outr Resulting Lab, Provider Social History Tobacco [...] on filedocumented in this encounter Care Teams Technical Support Representative Relationship Specialty Start Date End Date None, Provider PCP - General 09/08/13 Tatum Lugo MD [address] [place] [phone] 09/08/13 documented as of this encounter
--- OUTSIDE RECORDS SUMMARY | 2024-02-21 14:50 | XMS_ITS | Encounter Summary ---
Author Organization [facility] Address [facility] [place] [address] Care Team Providers Care Medical Record Clerk Name Role Phone None Primary Care Provider Unavailabl e Reason for Referral * Surgical (Routine) - Closed Specialty Diagnoses / Procedures Referred By Lamont riggins Referred To Contact General Surgery Diagnoses Thyroid nodule Jona Dickinson MD [address] [place] [address] Marlo Ko MD [facility] [place] [address] Referral ID Status Reason Start Date Expiration Date V isits Requested Visits Authorized [id number] Closed Specialty Service Requested 03/03/2011 08/30/2011 1 1 Reason for Visit * Reason Onset Date Comments Other 03/03/2011 ? when surgery i s scheduled Encounter Details Date Type Department Care Team (Late st Contact Info) Description 03/03/2011 Telephone [place] [address] Jona Dickinson MD [address] [place] [address] Other (? when surgery is scheduled) Social [...] 03/03/2024 3:00 PM EST Appointment Radiology at [place] [phone] Linda Diaz MD [facility] [place] [address] 03/03/2024 4:00 PM EST Routine Obstetrics and Gynecology at [place] [phone] Linda Diaz MD [facility] [place] [address] 03/03/2024 4:30 PM EST Scheduled View Only Obstetrics [place] [address] 03/12/2024 10:45 AM EST Office [place] [phone] James Barth DO [facility] [place] [address] 05/23/2024 Hospital En[place] [address] Maite Malloy MD [facility] DR [place] [address] Scheduled Referrals Name Type Priority Associated Diagnoses Orde r Schedule REFERRAL TO GENERAL SURGERY Outpatient Referral Routine Thyroid nodule Ordered: 03/03/2011 documented as of this encounter Visit Diagnoses Diagnosis Thyroid nodule- Primary Nontoxic uninodular goiter documented in this encounter Care Teams Medical Record Clerk Relationship Specialty Start Date End Date None None PCP - General 02/23/11 05/09/11 documented as of this encounter
--- OUTSIDE RECORDS SUMMARY | 2024-02-21 14:50 | XMS_ITS | Encounter Summary ---
Author Organization [facility] Address [address] [place] [address] Care Team Providers Care General Internist And Physician Leader Name Role Phone Unavailable Primary Care Provider Unavailabl e Encounter Details Date Type Department Care Team (Late st Contact Info) Description 05/14/2007 8:03 EST - 05/14/2007 11:59 EST Hospital Encounter [address] [address] Harsha Kingston MD [address] [place] [address] Discharge Disposition: Auto Discharge Social History Tobacco [...]
--- OUTSIDE RECORDS SUMMARY | 2024-02-21 14:50 | XMS_ITS | Encounter Summary ---
Author Organization [facility] [place] [address] Care Team Providers Care Plastic Surgery Technician Name Role Phone None Primary Care Provider Unavailabl e Reason for Visit * Reason Comments Thyroid Nodule Encounter Details Date Type Department Care Team ([facility] st Contact Info) Description 03/15/2011 11:10 AM EST Office [place] [phone] Jona Dickinson MD [address] [place] [address] Thyroid nodule (Primary Dx) Discharge Disposition: Home [...] of the neck were obtained using a SonCEINTaxx and an HFL38/13-6 broadband linear array transducer. [...] 03/03/2024 3:00 PM [place] [address] Linda Diaz MD [facility] [place] [address] 03/03/2024 4:00 PM EST Routine Obstetrics [place] [phone] Linda Diaz MD [facility] [place] [address] 03/03/2024 4:30 PM EST Scheduled View Only Obstetrics [place] [address] 03/12/2024 10:45 AM EST Office [place] [address] James Barth DO [facility] [place] [address] 05/23/2024 [place] [address] Maite Malloy MD [facility] OBSTETR[place] [address] documented as of this encounter Visit Diagnoses Diagnosis Thyroid nodule- Primary Nontoxic uninodular goiter documented in this encounter Care Teams Plastic Surgery Technician Relationship Specialty Start Date End Date None None PCP - General 02/23/11 05/09/11 documented as of this encounter
--- OUTSIDE RECORDS SUMMARY | 2024-02-21 14:50 | XMS_ITS | Encounter Summary ---
Author Organization [facility] Address [address] [place] [address] Care Team Providers Care Pathology Laboratory Aides Teacher Name Role Phone None, Provider Primary Care Provider Tatum Marcelino MD Unavailable [phone] Encounter Details Date Type Department Care Team (Latest Contact Info) Description 10/09/2013 7:21 EDT - 10/09/2013 7:22 EDT Hospital Encounter [address] [address] Jose Enrique Pacheco MD [address] [place] [address] Discharge Disposition: Home or Self [...] on filedocumented in this encounter Care Teams Pathology Laboratory Aides Teacher Relationship Specialty Start Date End Date None, Provider PCP - General 09/08/13 Tatum Lugo MD [address] [place] [phone] 09/08/13 documented as of this encounter
--- OUTSIDE RECORDS SUMMARY | 2024-02-21 14:50 | XMS_ITS | Encounter Summary ---
Author Organization [facility] Address [address] [place] [address] Care Team Providers Care Real Estate Director Name Role Phone Tatum Arevalo MD Primary Care Provider [phone] Encounter Details Date Type Department Care Team (Late st Contact Info) Description 04/29/2007 Before PRISM Converted Visit (Maple) [facility] - Maple conversion [address] [place] [address] Harsha Kingston MD [address] [place] [phone] Social History Tobacco Use Types Packs/Day Years [...] F. Robinson, MS, PNP Renee Patterson MS, DATA COMMUNICATIONS SOFTWARE CONSULTANT ([id number]), REFERRING PHYSICIAN Tatum Arevalo M.D. 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 The scope was [...] electronically signed by Dr. HARSHA GONZALEZ MD, M.Acosta. on 05/14/2007 at 10:23 [facility] Document ID: [id number] * Harsha Gonzalez MD - 02/24/2009 1129 EST [facility] Esophagogastroduodenoscopy Procedure Report Attending Physician: HARSHA GONZALEZ [...] electronically signed by Dr. HARSHA GONZALEZ MD, M.Acosta. on 05/14/2007 at 09:49 [facility] Document ID: [id number] documented in this encounter Consult Notes * Harsha Gonzalez MD - 02/23/2009 0532 EST CONSULTATION - 04/29/2007 Jim Mar[place] [address] Marino: THE PEDIATRIC GI TEAM: Pediatric GI, Hepatology & Nutrition MD Cale Arechiga MD Elizabeth F. Robinson, MS, PNP Renee Patterson, , DATA COMMUNICATIONS SOFTWARE CONSULTANT ([facility]-[place]), Andree was seen in consultation today at [...] has. She was recently hospitalized just around [facility], needing a short course of steroids. Her [...] The possibility of celiac disease given her [place] background is of concern and certainly IBD [...] Harsha Kingston MD Division of Pediatric Gastroenterology [phone] - Harsha Kingston MD P - radha Job ID: [id number] Doc ID: [id number] cc: MD Harsha Austin MD P - radha Job ID: [id number] Doc ID: [id number] cc: Jim Marino MD documented in this encounter Plan of Treatment Not on file documented as of this encounter Visit Diagnoses Not on filedocumented in this encounter Care Teams Real Estate Director Relationship Specialty Start Date End Date Tatum Arevalo MD [address] [place] [phone] PCP - General 08/06/08 11/13/10 documented as of this encounter
--- OUTSIDE RECORDS SUMMARY | 2024-02-21 14:50 | XMS_ITS | Encounter Summary ---
Author Organization [facility] Address [address] [place] [address] Care Team Providers Care Printed Circuit Boards Solder Leveler Name Role Phone None, Provider Primary Care Provider Tatum Marcelino MD Unavailable [phone] Encounter Details Date Type Department Care Team (Late st Contact Info) Description 05/31/2021 Lab Requisition [facility] Pathology & Laboratory Medicine - [address] [address] Outr Resulting Lab, Provider Social History Tobacco [...] 85 - 499 mg/dL 06/01/2021 9:05 EST [facility] Blood VENOUS BLOOD / Unknown 05/31/2021 10:55 EST 05/31/2021 21:35 EST Provider Outr Resulting Lab CHEMISTRY & BLOOD GAS ORDERABLES [facility] [address] [place] [address] * IGG (05/31/2021 10:55 EST) IgG 738 610-1,616 mg/dL 06/01/2021 9:05 EST [facility] Blood VENOUS BLOOD / Unknown 05/31/2021 10:55 EST 05/31/2021 21:35 EST Provider Outr Resulting Lab CHEMISTRY & BLOOD GAS ORDERABLES Performing Organization Address [facility] de Phone Number [facility] [address] [place] [address] documented in this encounter Visit Diagnoses Not on filedocumented in this encounter Care Teams Printed Circuit Boards Solder Leveler Relationship Specialty Start Date End Date None, Provider PCP - General 09/08/13 Tatum Lugo MD [address] [place] [phone] 09/08/13 documented as of this encounter
--- OUTSIDE RECORDS SUMMARY | 2024-02-21 14:50 | XMS_ITS | Encounter Summary ---
Author Organization [facility] Address [address] [place] [address] Care Team Providers Care Mechanical Pencils Assembler Name Role Phone Tatum Lugo MD Primary Care Provider [phone] Encounter Details Date Type Department Care Team (Late st Contact Info) Description 04/29/2007 Results Only [facility] Medical & Developmental Clinic - [address] [phone] Harsha Kingston MD [address] [place] [phone] Social History Tobacco Use Types Packs/Day Years [...] Unit: U Performed or Referred by: [facility] Dpt of Lab Med and Path, [address] ?? , [place] [address], Lab Dir: MD ROCAEL Hernandez III LAB 04/29/2007 10:2 3 EST 04/29/2007 10:25 EST Harsha Kingston MD IMMUNOLOGY AN D SEROLOGY ORDERABLES Performing Organization Address [facility] de Phone Number [facility] [address] [place] [address] * TSH (04/29/2007 10:23 EST) TSH 1.97 0.35 - 5.00 uIU/mL [facility] 04/29/2007 10:2 3 EST 04/29/2007 10:25 EST Harsha Kingston MD CHEMISTRY & B LOOD GAS ORDERABLES Performing Organization Address [facility] de Phone Number [facility] [address] [place] [address] * (ABNORMAL) SED. RATE:WESTERGREN (04/29/2007 10:23 EST) Sed. Rate Enriqueren 34(H) 0 - 20 mm/hr [facility] 04/29/2007 10:2 3 EST 04/29/2007 10:25 EST Harsha Kingston MD HEMATOLOGY & PF4 ORDERABLES Performing Organization Address [facility] Co de Phone Number [facility] [address] [place] [address] * IGA (04/29/2007 10:23 EST) IgA 66 45 - 237 mg/dl [facility] 04/29/2007 10:2 3 EST 04/29/2007 10:25 EST Harsha Kingston MD CHEMISTRY & B LOOD GAS ORDERABLES Performing Organization Address [facility] de Phone Number [facility] [address] [place] [address] * T4 FREE (04/29/2007 10:23 EST) Free T4 1.2 0.8 - 1.5 ng/dL [facility] 04/29/2007 10:2 3 EST 04/29/2007 10:25 EST Harsah Kingston MD CHEMISTRY & B LOOD GAS ORDERABLES Performing Organization Address [facility] Phone Number [facility] [address] [place] [address] * (ABNORMAL) COMPREHENSIVE METABOLIC PANEL (04/29/2007 10:23 [...] LOOD GAS ORDERABLES [facility] [address] [place] [address] * (ABNORMAL) HEMAGRAM AND DIFFERENTIAL (04/29/2007 10:23 [...] ER [facility] % Lymphocytes 12.8 % [facility] % Monocytes 6.5 % [...] DN A PROBE ORDERABLES Performing Organization Address City/[facility] Co de Phone Number [facility] [address] [place] [address] * HEMOGLOBIN A1C (04/29/2007 10:23 EST) Hemoglobin A1C 5.0 % [facility] Comment: Shortened red blood cell survival will decrease Hemoglobin A1C values. Reference Range: <6% Normal Range <7% Recommended goal by ADA guidelines 7-8% Suboptimal by ADA guidelines >8% Further action suggested by ADA guidelines 04/29/2007 10:2 3 EST 04/29/2007 10:25 EST Harsha Kingston MD CHEMISTRY & B LOOD GAS ORDERABLES Performing Organization Address [facility] Co de Phone Number [facility] [address] [place] [address] documented in this encounter Visit Diagnoses Not on filedocumented in this encounter Care Teams Mechanical Pencils Assembler Relationship Specialty Start Date End Date Tatum Lugo MD [address] [place] [phone] PCP - General 08/06/08 11/13/10 documented as of this encounter
--- OUTSIDE RECORDS SUMMARY | 2024-02-21 14:50 | XMS_ITS | Encounter Summary ---
Author Organization [facility] [place] [address] Care Team Providers Care Clinical Trials Systems Administrator Name Role Phone None Primary Care Provider Unavailabl e Encounter Details Date Type Department Care Team (Late st Contact Info) Description 03/22/2011 2:03 PM EST Anesthesia Event [place] [address] Anatoly Ibarra MD [address] [facility] [place] [address] Magalie Suarez [facility] [place] [address] Anesthesia Record Procedure Summary Procedure Name Responsible [...] and consented by patient. Plan discussed with [employer] TECHNICIAN. documented in this encounter Plan of Treatment Upcoming Encounters Date Type Department Care Team (Late st Contact Info) Description 03/03/2024 3:00 PM EST Appointment [place] [address] Linda Diaz MD [facility] [place] [address] 03/03/2024 4:00 PM EST Routine Obstetrics [place] [phone] Linda Diaz MD [facility] [place] [address] 03/03/2024 4:30 PM EST Scheduled View Only Obstetrics [place] [phone] 03/12/2024 10:45 AM EST Office Visit [place] [phone] James Barth DO [facility] [place] [address] 05/23/2024 Hospital [place] [phone] Maite Malloy MD [facility] OBSTETRICS [place] [address] documented as of this encounter Visit Diagnoses Not on filedocumented in this encounter Care Teams Clinical Trials Systems Administrator Relationship Specialty Start Date End Date None None PCP - General 02/23/11 05/09/11 documented as of this encounter
--- OUTSIDE RECORDS SUMMARY | 2024-02-21 14:50 | XMS_ITS | Encounter Summary ---
Author Organization [facility] Address [address] [place] [address] Care Team Providers Care International Sales Representative Name Role Phone Tatum Lugo MD Primary Care Provider [phone] Tatum Lugo MD Unavailable [phone] Encounter Details Date Type Department Care Team (Late st Contact Info) Description 10/31/2012 Results Only [facility] Laboratory Services - [facility] ([facility]) [address] [place] [phone] Stephanie Chavez MD [address] [place] [address] Social History Tobacco Use Types Packs/Day [...] ? ANDREE ROJAS ? Accession #: ? [id number] : ? 1990 (Age: 22) ??F ?Collect [...] MD PATHOLOGY ORDERABLES [facility] [address] [place] [address] documented in this encounter Visit Diagnoses Not on filedocumented in this encounter Care Teams International Sales Representative Relationship Specialty Start Date End Date Tatum Lugo MD [address] [place] [phone] PCP - General 11/16/10 09/07/13 Tatum Lugo MD [address] [place] [phone] 11/14/10 09/07/13 documented as of this encounter
--- OUTSIDE RECORDS SUMMARY | 2024-02-21 14:50 | XMS_ITS | Encounter Summary ---
Author Organization [facility] Address [address] [place] [address] Care Team Providers Care Top Case Assembler Name Role Phone Unavailable Primary Care Provider Unavailabl e Encounter Details Date Type Department Care Team (Late st Contact Info) Description 04/29/2007 8:27 [facility] Hospital Encounter [address] [address] Harsha Kingston MD [address] [place] [phone] Social History Tobacco Use Types Packs/Day Years [...]
--- OUTSIDE RECORDS SUMMARY | 2024-02-21 14:50 | XMS_ITS | Encounter Summary ---
Author Organization [facility] [place] [address] Care Team Providers Care Nutrition Helper Name Role Phone None Primary Care Provider Unavailabl e Encounter Details Date Type Department Care Team (Latest Contact Info) Description 03/22/2011 12:09 PM EST - 03/22/2011 7:14 PM EST Hospital [place] [address] Juan Ko MD [facility] [place] [address] Discharge Disposition: Home Social History Tobacco Use [...] calcium supplementation (tums) Phone number for questions: [phone] before 5 PM weekdays [phone] after 5 PM and on weekends/holidays documented [...] on physical exam. ROS: No H/O asthma, [place], stroke, pulmonary embolus or phlebitis. Comprehensive review [...] agrees to proceed. Will sign in through [facility]. Consent is signed. Send copy to Dr. Villalba. documented in this encounter Miscellaneous Notes * Miscellaneous - Provider, Scanning - 03/22/2011 9:20 PM EST * Op Note - Satinder Duncan MD - 03/22/2011 5:12 PM EST [facility] Operative Note Patient Name: Andree Hummel : [id number] MR#: [id number] Case Date: 03/22/2011 Surgeon: Surgeon(s) and Role: [...] the thyroid gland were obtained using a SonTunePatrolaxx and an HFL38/13-6 broadband linear array transducer. [...] Operative Note Patient Name: Andree Hummel : [id number] MR#: [id number] Case Date: 03/22/2011 Surgeon: Surgeon(s) and Role: [...] 03/03/2024 3:00 PM EST Appointment Radiology at [place] [phone] Linda Diaz MD [facility] [place] [address] 03/03/2024 4:00 PM EST Routine Obstetrics and Gynecology at [place] [phone] Linda Diaz MD [facility] [address] [place] [address] 03/03/2024 4:30 PM EST Scheduled View Only Obstetrics and Gynecology at [place] [phone] 03/12/2024 10:45 AM EST Office Visit Endocrinology at [address] James Barth DO [facility] [place] [address] 05/23/2024 Hospital [place] [phone] Maite Malloy MD [facility] DR OBSTETRICS [place] [address] documented as of this encounter Procedures Procedure [...] Pathology Report (03/22/2011 5:13 PM EST) Pathologist [facility] Surgical Pathology Report [id number] ? Location: [facility] The signing pathologist has (i) [...] superior to inferior including enlarged parathyroid; (41-44) abrasives sales representative sections of isthmus; (45-50) serial [...] EST Juan Ko MD PATHOLOGY/CYTOLOGY ORDERABLES HANNAH SERRANO * Specimen to Pathology (surgical or derm) (03/22/2011 4:33 PM EST) AP Specimen 03/22/2011 4:33 PM EST 03/22/2011 4:33 PM EST Narrative HANNAH SERRANO - 03/22/2011 4:33 PM EST Specimen requisition ordered. ??Separate Pathology report to follow Luis Hester MD PATHOLOGY/CYTOLOGY ORDERABLES Performing Organization Address City/[facility]/ZIP Co de Phone Number HANNAH SERRANO [...] 213, Day of Surgery (Day of Procedure) 1300 [...] PRN, Starting on Sun03/22/11 at 1714, Until 12/7/11 at 2138, Pain, for breakthrough pain, Hold [...] Patch documented in this encounter Care Teams Nutrition Helper Relationship Specialty Start Date End Date None None PCP - General 02/23/11 05/09/11 documented as of this encounter
--- OUTSIDE RECORDS SUMMARY | 2024-02-21 14:50 | XMS_ITS | Encounter Summary ---
Author Organization [facility] [place] [address] Care Team Providers Care Floorworker Lasting Name Role Phone None Primary Care Provider Unavailabl e Reason for Visit * Reason Comments Thyroid Nodule Encounter Details Date Type Department Care Team ([facility] st Contact Info) Description 02/23/2011 1:00 PM EST Office Visit [place] [phone] Jona Dickinson MD [address] [place] [address] Hypothyroid (Primary Dx); Thyroid nodule Discharge Disposition: [...] the thyroid gland were obtained using a SonYummy Foodaxx and an HFL38/13-6 broadband linear array transducer. [...] ORAL) No Known Allergies SH: Lives in [facility]. Occasional smoker. Occasional alcohol. No drug [...] as per attached note. 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 Dickinson. Yessy Novak MD Endocrinology Fellow [facility] Section of Endocrinology documented in this encounter Plan of Treatment Upcoming Encounters Date Type Department Care Team (Late st Contact Info) Description 03/03/2024 3:00 PM EST Appointment [place] [address] Linda Diaz MD [facility] [place] [address] 03/03/2024 4:00 PM EST Routine Obstetrics [place] [address] Linda Diaz MD [facility] [place] [address] 03/03/2024 4:30 PM EST Scheduled View Only Obstetrics [place] [address] 03/12/2024 10:45 AM EST Office Visit Endocrinology at [place] [phone] James Barth, [facility] [place] [address] 05/23/2024 Hospital Encounter Birthing [facility] [place] [phone] Maite Malloy MD [facility] [place] [address] documented as of this encounter Procedures Procedure Name Priority Date/Time Associated Diagnosis Comments NON-TEST KITCHEN HOME ECONOMIST FINAL REPORT Routine 02/23/2011 4:31 PM EST TSH Routine 02/23/2011 2:25 PM EST Hypothyroid CYTOPATHOLOGY NON-GYNECOLOGICAL Routine 02/23/2011 2:18 PM EST Hypothyroid Thyroid nodule documented in this encounter Results * Non-Utility Clerk Final Report (02/23/2011 4:31 PM EST) Non-Utility Clerk Final Report [id number] ? Location: 5C The signing pathologist has (i) examined the relevant preparation(s) for the specimen(s) and (ii) rendered or confirmed the diagnosis(es). . ? Pathology Non-Utility Clerk Cytology Final Report Clinical Information Specimen Source [...] ?Screened by: ? FMQ ?Rescreened by: ?? FCL,DRILL INSTRUCTOR 03/01/11 ?Verified by: ? MELLO LIMA, RENARD [...] intradepartmental multihead conference with Drs Divya, Juan Ramon and Lori. CERNER MILLENNIUM 02/23/2011 4:31 PM EST Jona Dickinson MD PATHOLOGY/CYTOLOGY O RDERABLES Performing Organization Address [facility] de Phone Number [facility] Chef Surfing * TSH (02/23/2011 2:25 PM EST) Thyroid Stimulating Hormone 1.62 0.27 - 4.20 mcIU/mL [facility] MILLENNIUM Blood specimen (specimen) 02/23/2011 2:25 PM EST 02/23/2011 2:51 PM EST Jona Dickinson MD CHEMISTRY ORDERABLES Performing Organization Address [facility] de Phone Number [facility] 5[facility] * Cytopathology Non-Gynecological (02/23/2011 2:18 PM EST) AP Specimen 02/23/2011 2:18 PM EST 02/23/2011 2:18 PM EST Narrative HANNAH SERRANO - 02/23/2011 2:18 PM EST Specimen requisition ordered. ??Separate Pathology report to follow Jona Dickinson MD PATHOLOGY/CYTOLOGY O RDERABLES HANNAH SERRANO documented in this encounter Visit Diagnoses Diagnosis Hypothyroid- Primary Unspecified hypothyroidism Thyroid nodule Nontoxic uninodular goiter documented in this encounter Care Teams Floorworker Lasting Relationship Specialty Start Date End Date None None PCP - General 02/23/11 05/09/11 documented as of this encounter
--- OUTSIDE RECORDS SUMMARY | 2024-02-21 14:50 | XMS_ITS | Encounter Summary ---
Author Organization [facility] Address [address] [place] [address] Care Team Providers Care Taping Supervisor Name Role Phone Unknown, Provider MD Primary Care Provider Tatum Will MD Unavailable [phone] Encounter Details Date Type Department Care Team (Late st Contact Info) Description 11/14/2010 Results Only [facility] Laboratory Services - [facility] ([facility]) [address] [place], [place] [address] Mitesh Suarez MD [address] [place] [address] [id number] Social History Tobacco Use Types Packs/Day Years [...] FRANK GIL S ? Accession #: ? [id number] ? : ? 1990 (Age: 20) ??F [...] reviewed and electronically signed by: ? VERONICA J BUTNOR MD ? Report ??Date: 11/16/2010 15:42 [...] Gross Description: ? Received in formalin labelled Darwin Gil ear lesion is a 1.1 x 0.6 [...] en face ? Received in formalin labelled Gil, Frank and R tonsil is a 3.5 x ?? 2.5 x 1.7 cm, firm tonsil which has a multinodular to lobular, tam mucosal ? surface. ??The resection margin is black-inked. ??Sections reveal a tam, slightly lobular cut surface. ??Two physician relations representative sections are submitted as (B). ? Received in formalin labelled Gil, Frank and L tonsil are two ? pieces of firm tonsil which measure 2.3 x 2.0 x 1.5 cm and 2.2 x 2.1 x 1.5 cm. ?? Both pieces have light tam, multinodular mucosal surfaces and resection margins are black inked. ??Sections reveal a light tam, slightly lobular cut surface. ? Two physician relations representative sections of the specimen are submitted as (C). ? Received in formalin labelled Gil, Frank and adenoids is a 1.8 x ?? 1.3 x 1.3 cm, firm, light tam, focally blood-stained, slightly lobular piece of tissue. ??Two physician relations representative sections of the specimen are submitted as (D). (J. ?? [facility] ? End of Report ? [facility] 11/14/2010 11/14/2010 18: 09 EDT Mitesh Suarez MD PATHOLOGY ORDERABLES [facility] [address] [place] [address] documented in this encounter Visit Diagnoses Not on filedocumented in this encounter Care Teams Taping Supervisor Relationship Specialty Start Date End Date Unknown, Provider, PCP - General 11/14/10 11/15/10 Tatum Lugo MD [address] [place] [phone] 11/14/10 09/07/13 documented as of this encounter
--- OUTSIDE RECORDS SUMMARY | 2024-02-21 14:50 | XMS_ITS | Clinical Summary ---
Author Organization [facility] Address [address] [place] [address] Care Team Providers Care Cable Technician Name Role Phone None, Provider Primary Care Provider Tatum Marcelino MD Unavailable [phone] Allergies Active Allergy Reactions Criticality Noted [...] ? ANDREE ROJAS ? Accession #: ? [id number] : ? 1990 (Age: 26) ??F ?Collect Date: ? 05/21/2017 Location: ? [facility] ? Receive Date: ? 05/23/2017 Provider: ?RUSSELL VIVEROS [facility]- Copy to: ? Specimen/Source: ?Pap Test, [...] Report Date: ??05/29/2017 10:03 End of Report [facility] 05/21/2017 05/23/2017 Russell Warner COMPETITIVE INTELLIGENCE ANALYST-BC PATHOLOGY ORDERA ARIANNA [facility] [address] [place] [address] from Last 3 Months or Most Recently Relevant to Health Maintenance Care Teams Cable Technician Relationship Specialty Start Date End Date None, Provider PCP - General 09/08/13 Tatum Lugo MD [address] [place] [phone] 09/08/13
--- OUTSIDE RECORDS SUMMARY | 2024-02-21 14:50 | XMS_ITS | Encounter Summary ---
Author Organization [facility] Address [address] [place] [address] Care Team Providers Care Traffic Attendant Name Role Phone None, Provider Primary Care Provider Tatum Marcelino MD Unavailable [phone] Encounter Details Date Type Department Care Team (Late st Contact Info) Description 05/21/2017 Results Only [facility] [phone] Rusesll Warner, [address] [address] Social History Tobacco Use Types Packs/Day Years [...] ? ANDREE ROJAS ? Accession #: ? [id number] : ? 1990 (Age: 26) ??F ?Collect Date: ? 05/21/2017 Location: ? [facility] ? Receive Date: ? 05/23/2017 Provider: ?RUSSELL VIVEROS [facility]OT-BC Copy to: ? Specimen/Source: ?Pap Test, Cervix, [...] Date: ??05/29/2017 10:03 End of Report [facility] 05/21/2017 05/23/2017 Russell Warner MENHADEN VESSEL PILOT-BC PATHOLOGY ORDERA BLES [facility] [address] [place] [address] documented in this encounter Visit Diagnoses Not on filedocumented in this encounter Care Teams Traffic Attendant Relationship Specialty Start Date End Date None, Provider PCP - General 09/08/13 Tatum Lugo MD [address] [place] [phone] 09/08/13 documented as of this encounter
--- OUTSIDE RECORDS SUMMARY | 2024-02-21 14:50 | XMS_ITS | Encounter Summary ---
Author Organization [facility] [place] [address] Care Team Providers Care Copy Editor Name Role Phone None Primary Care Provider Unavailabl e Encounter Details Date Type Department Care Team (Late st Contact Info) Description 03/22/2011 2:28 PM EST - 03/22/2011 4:56 PM EST Surgery [place] [address] Juan Ko MD [facility] [place] [address] THYROIDECTOMY, FOR MALIGNANCY, LIMITED NECK DISSECTION (WRVU [...] calcium supplementation (tums) Phone number for questions: [phone] before 5 PM weekdays [phone] after 5 PM and on weekends/holidays documented [...] the thyroid gland were obtained using a SonoSiCooCooaxx and an HFL38/13-6 broadband linear array transducer. [...] on physical exam. ROS: No H/O asthma, HI, stroke, pulmonary embolus or phlebitis. Comprehensive review [...] agrees to proceed. Will sign in through [facility]. Consent is signed. Send copy to Dr. Villalba. documented in this encounter Miscellaneous Notes * Miscellaneous - Provider, Scanning - 03/22/2011 9:20 PM EST * Op Note - Satinder Duncan MD - 03/22/2011 5:12 PM EST [facility] Operative Note Patient Name: Andree Hummel : [id number] MR#: [id number] Case Date: 03/22/2011 Surgeon: Surgeon(s) and Role: [...] Operative Note Patient Name: Andree Hummel : [id number] MR#: [id number] Case Date: 03/22/2011 Surgeon: Surgeon(s) and Role: [...] PM EST Appointment Radiology at [place] [phone] Linda Diaz MD [facility] [place] [address] 03/03/2024 4:00 PM EST Routine Obstetrics and Gynecology at [place] [phone] Linda Diaz MD [facility] [place] [address] 03/03/2024 4:30 PM EST Scheduled View Only Obstetrics and Gynecology at [place] [phone] 03/12/2024 10:45 AM EST Office Visit Endocrinology at [address] James Barth DO [facility] [place] [address] 05/23/2024 Hospital [place] [phone] Maite Malloy MD [facility] DR OBSTETRICS [place] [address] documented as of this encounter Procedures Procedure [...] Pathology Report (03/22/2011 5:13 PM EST) Pathologist [facility] Surgical Pathology Report [id number] ? Location: [facility] The signing pathologist has (i) [...] superior to inferior including enlarged parathyroid; (41-44) technology sales representative sections of isthmus; (45-50) serial [...] Ko MD PATHOLOGY/CYTOLOGY ORDERABLES Performing Organization Address [facility] Co de Phone Number [facility] * Specimen to Pathology (surgical or derm) (03/22/2011 4:33 PM EST) AP Specimen 03/22/2011 4:33 PM EST 03/22/2011 4:33 PM EST Narrative CERNER MILLENNIUM - 03/22/2011 4:33 PM EST Specimen requisition ordered. ??Separate Pathology report to follow Luis Hester MD PATHOLOGY/CYTOLOGY ORDERABLES Performing Organization Address [facility] Co de Phone Number [facility] documented in this encounter Visit [...] Patch documented in this encounter Care Teams Copy Editor Relationship Specialty Start Date End Date None None PCP - General 02/23/11 05/09/11 documented as of this encounter
--- OUTSIDE RECORDS SUMMARY | 2024-02-21 14:50 | XMS_ITS | Encounter Summary ---
Author Organization [facility] Address [address] [place] [address] Care Team Providers Care Floorworker Name Role Phone None, Provider Primary Care Provider Tatum Marcelino MD Unavailable [phone] Encounter Details Date Type Department Care Team (Late st Contact Info) Description 09/17/2014 Results Only [facility]- [facility] [phone] Dee Dee Shukla, [facility] [address] [place] [phone] Social History Tobacco Use Types Packs/Day Years [...] ? ANDREE ROJAS ? Accession #: ? [id number] : ? 1990 (Age: 24) ??F ?Collect Date: ? 09/17/2014 Location: ? [facility] ? Receive Date: ? 09/18/2014 Provider: ?DEE DEE SHUKLA SCALLOP CUTTER MACHINE Copy to: ? Specimen/Source: ?Pap Test, Cervix/Endocervix, [...] ??09/24/2014 08:02 End of Report [facility] 09/17/2014 09/18/2014 Dee Dee Shukla SCALLOP CUTTER MACHINE PATHOLOGY ORDERABLES [facility] [address] [place] [address] documented in this encounter Visit Diagnoses Not on filedocumented in this encounter Care Teams Floorworker Relationship Specialty Start Date End Date None, Provider PCP - General 09/08/13 Tatum Lugo MD [address] [place] [phone] 09/08/13 documented as of this encounter
--- NOTE | 2024-02-21 16:00 | DI.RAD_ITS ---
Exam(s) XR FOOT LT COMPLETE XR ANKLE LT COMPLETE EXAM: XR ANKLE LT COMPLETE CLINICAL HISTORY: LT ANKLE PAIN, M25.572 TECHNIQUE: 2D digital imaging was performed. Three views of the ankle and foot. COMPARISON: CR XR FOOT LT COMPLETE from 02/21/2024 FINDINGS: BONES: No acute fracture is present. No bony destructive lesion is seen. JOINTS:The ankle mortise is normally aligned. The plantar arch is maintained. No significant degen erative changes. SOFT TISSUE: Normal. IMPRESSION: Unremarkable radiographs of the left ankle and foot. DATA REPOSITORY: RADIATION DOSE DELIVERED:
== END 2024-02-21 15:00 ==
PROVIDERS: PCP Nurse Practitioner Family; Visit Provider Physician Assistant Medical
DX: M25.572 Pain in left ankle and joints of left foot (principal)
CPT/HCPCS: 73610; 73630

== ENCOUNTER 2024-03-15 15:17 | Outpatient (CLI) | payer MEDICAID, SELFPAY ==
[2024-03-15 15:20] VITALS: BP 119/78; PULSE 102; RESP 18; TEMP 36.9; O2SAT 98
--- OUTSIDE RECORDS SUMMARY | 2024-03-15 15:27 | XMS_ITS | Encounter Summary ---
Author Organization [facility] Address [facility] [place] [address] Care Team Providers Care Property Man Name Role Phone Richard Rasheed MD Primary Care Provider [phone] Encounter Details Date Type Department Care Team (Latest Contact Info) Description 12/27/2023 12:57 PM EDT - 12/27/2023 11:59 PM EDT Hospital [place] [phone] Walt Bay MD [facility] OBSTETRICS AND [place] [address] History of delivery, currently Discharge Disposition: Home [...] from your doctor or pharmacy? Never 10/12/2023 [facility] Utilities Answer Date Recorded In the [...] in the past 12 m [facility], were you homeless or living [...] Dispensed Refills Start Date End Date ondansetron ODT (Zofran-ODT) 4 mg disintegrating tablet Take 1 tablet by mouth every 4 hours as needed for Nausea. 20 tablet 03/04/2024 famotidine (Pepcid) 40 mg tablet Take 1 tablet by mouth daily. 50 tablet 1 03/04/2024 levothyroxine (Synthroid) 175 mcg tablet Take 1 tablet by mouth daily. 90 tablet 3 11/15/2023 levothyroxine (Synthroid) 200 mcg tablet Take 1 tablet by mouth daily. 90 tablet 3 11/15/2023 vitamin with fqyzlstn-Ia-Dxcm-FA Tablet Take by mouth. calcium carbonate (OS-LEMUEL) 648 mg calcium tablet Take 650 mg by mouth 3 times daily (with meals). documented as of this encounter Plan of Treatment Upcoming Encounters Date Type Department Care Team (Late st Contact Info) Description 05/23/2024 Hospital Encounter Birthing [facility] [address] [place] [phone] Lexii Ceja MD [facility] DR OBSTETRICS AND [place] [address] documented as of this encounter Procedures Procedure Name Priority Date/Time Associated Diagnosis Comments US OB CERVICAL LENGTH TRANSVAGINAL Routine 12/27/2023 1:31 PM EDT History of delivery, currently documented in this encounter Results * US OB Cervical Length Transvaginal (12/27/2023 1:31 PM EDT) [employer] WORKSTATION ID [id number] RAD Anatomical Region Laterality Modality Pelvis, Abdomen [...] who have questions, please contact the health in home caregiver that requested your imaging first. ? Linda Diaz, Watershed Coordinator Electronically Signed Final Report ?? 12/27/2023 01:45 pm Narrative 12/27/2023 1:45 PM EDT OBSTETRICS REPORT ?(Signed Final 12/27/2023 01:45 pm) PATIENT INFO: ID #: ? [id number] ?: ??[birth year] (33 yrs)(F) Name: ? PREETHI Godoy ? Visit Date: 12/27/2023 01:34 pm ? LOUISE- ? FRANK PERFORMED BY: Performed By: ? Car Can RDMS Attending: ?Emily LIMA, Linda Figueroa Referred By: ?E MELANY BAY Location: ? [place] SERVICE(S) PROVIDED: UOBTVCER - Transvaginal ??2nd Trimester - ?26640 Cervical Length - [id number] INDICATIONS: 16 weeks gestation of ?Z3A.16 h/o [...] 12/27/2023 01:45 pm) PATIENT INFO: ID #: [id number] : [birth year] (33 yrs)(F) Name: PREETHI Godoy Visit Date: 12/27/2023 01:34 pm MARIO MARIE PERFORMED BY: Performed By: Car Can RDMS Attending: Linda Diaz MD Referred By: Walt MOSLEY [facility] Location: [place] SERVICE(S) PROVIDED: UOBTVCER - Transvaginal 2nd Trimester - 10225 Cervical Length - [id number] INDICATIONS: 16 weeks gestation of Z3A.16 h/o [...] who have questions, please contact the health in home caregiver that requested your imaging first. Linda Diaz, Watershed Coordinator Electronically Signed Final Report 12/27/2023 01:45 pm E Melany Bay MD IMG US OB ORDERAB LES documented in this encounter Visit Diagnoses Diagnosis History of delivery, currently with history of pre-term labor documented in this encounter Care Teams Property Man Relationship Specialty Start Date End Date Richard Rasheed MD [address] [place] [address] PCP - General Family Medicine 07/05/23 documented as of this encounter
--- OUTSIDE RECORDS SUMMARY | 2024-03-15 15:27 | XMS_ITS | Encounter Summary ---
Author Organization [facility] Address [facility] [place] [address] Care Team Providers Care Basket Bottom Machine Operator Name Role Phone Richard Rasheed MD Primary Care Provider [phone] Encounter Details Date Type Department Care Team (Late st Contact Info) Description 10/26/2023 Telephone Obstetrics [place] [phone] Tye Gamble MD [facility] DR OBSTETRICS & [place] [address] Social History Tobacco Use Types Packs/Day Years [...] Never 10/12/2023 [facility] Utilities Answer Date Recorded In the past 12 months has e [employer], gas, oil, or water [employer] threatened to shut off services in your [...] time in the past 12 m [facility], were you homeless or living in a jail (including now)? Yes 10/12/2023 Estimated Date of [...] Info) Description 05/23/2024 Hospital [place] [address] Lexii Ceja MD [facility] DR OBSTETRICS [place] [address] documented as of this encounter Visit Diagnoses Not on filedocumented in this encounter Care Teams Basket Bottom Machine Operator Relationship Specialty Start Date End Date Richard Rasheed MD [address] [place] [address] PCP - General Family Medicine 07/05/23 documented as of this encounter
--- OUTSIDE RECORDS SUMMARY | 2024-03-15 15:27 | XMS_ITS | Encounter Summary ---
Author Organization Counts Include [facility] Address [facility] [place] [address] Care Team Providers Care Sewing Techniques Demonstrator Name Role Phone Richard Rasheed MD Primary Care Provider [phone] Encounter Details Date Type Department Care Team (Late st Contact Info) Description 03/03/2024 2:14 PM EST - 03/03/2024 11:59 PM EST Hospital [place] [phone] Linda Medina MD [facility] [place] [address] History of delivery, currently Discharge Disposition: Home [...] material from your doctor or pharmacy? Never 03/03/2024 [facility] Utilities Answer Date Recorded In the past 12 months has e [employer], gas, oil, or water [employer] threatened to shut off services in your home? No 03/03/2024 Humiliation, Afraid, Rape, and Kick questionnair e Answer Date Recorded Within the last year, have y ou been afraid of your partner or ex-partner? No 03/03/2024 Within the last year, have y ou been humiliated or emotionally abused in other ways by your partner or ex-partner? No Within the last year, have y ou been kicked, hit, slapped, or otherwise physically hurt by your partner or ex-partner? No 03/03/2024 Within the last year, have y ou been raped or forced to have any kind of sexual activity by your partner or ex-partner? No 03/03/2024 Overall Financial Resource Strain (CARDIA) Answe r Date Recorded How hard is it for you to pa y for the very basics like food, housing, medical care, and heating? Not very hard 03/03/2024 Hunger Vital Sign Answer Date Recorded Within the past 12 months, y ou worried that your food would run out before you got the money to buy more. Never true Within the past 12 months, t he food you bought just didn't last and you didn't have money to get more. Sometimes true PRAPARE - Transportation Answer Date Re corded In the past 12 months, has l ack of transportation kept you from medical appointments or from getting medications? Yes 02/14 In the past 12 months, has l ack of transportation kept you from meetings, work, or from getting things needed for daily living? Yes 03/03/2024 Housing Stability Vital Sign Answer Ld e Recorded In the last 12 months, was t here a time when you were not able to pay the mortgage or rent on time? Yes 03/03/2024 In the past 12 months, how m any times have you moved where you were living? 1 03/03/2024 At any time in the past 12 m [facility], were you homeless or living in a chcf (including now)? Yes 03/03/2024 Estimated Date of Delivery Comme nts Yes [...] daily. 90 tablet 3 11/15/2023 vitamin with doiebgws-Rr-Kyyc-FA Tablet Take by mouth. calcium carbonate (OS-LEMUEL) 648 mg calcium tablet Take 650 mg by mouth 3 times daily (with meals). documented as of this encounter Plan of Treatment Upcoming Encounters Date Type Department Care Team (Late st Contact Info) Description 05/23/2024 [place] [address] Lexii Ceja MD [facility] DR OBSTET[place]ICS [place] [address] documented as of this encounter Procedures Procedure Name Priority Date/Time Associated Diagnosis Comments US OB FOLLOW UP Routine 03/03/2024 3:22 PM EST History of delivery, currently documented in this encounter Results * US OB Follow Up (03/03/2024 3:22 PM EST) WORKSTATION ID [id number] [facility] Anatomical Region Laterality Modality Pelvis, Abdomen Ultrasound 03/03/2024 3:20 PM EST Impressions 03/03/2024 3:27 PM EST 2nd Trimester Summary Single intrauterine with a gestational age of 25w 1d based on U/S C R L ??(11/08/23) Composite age based on the current ultrasound alone is 26w 3d. Current growth parameters are consistent with prior dating indicating normal growth Amniotic fluid volume is subjectively normal. Limited anatomic evaluation was performed and no structural abnormalities are noted. The placenta is anterior with no evidence of a succienturiate lobe. Thank you for letting us participate in the care of this patient. If you are a health care provider and have any questions regarding this report, please contact the number above. For patients who have questions, please contact the health senior care specialist that requested your imaging first. ? Sadie Bay, Staff Physician Electronically Signed Final Report ?? 03/03/2024 03:27 pm Narrative 03/03/2024 3:27 PM EST OBSTETRICS REPORT ?(Signed Final 03/03/2024 03:27 pm) PATIENT INFO: ID #: ? [id number] ?: ??[birth year] (33 yrs)(F) Name: ? PREETHI Godoy ? Visit Date: 03/03/2024 03:20 pm ? LOUISE- ? FRANK PERFORMED BY: Performed By: ? Sherice HARVEY, ??Rina Attending: ?Sadie Bay MD Referred By: ?LINDA MEDINA Location: ? [facility] SERVICE(S) PROVIDED: UOBFOL - Efw - Growth ??- [place] - [id number] ?[id number] INDICATIONS: 25 weeks gestation of ?Z3A.25 reassess placental location VITAL SIGNS: Height: ?5'8 EVALUATION: Num Of Fetuses: ? 1 Heart Rate(bpm): ??153 Cardiac Activity: ? Observed, normal rhythm Presentation: ? Breech Placenta: ? Anterior P. Cord Insertion: ?Within Normal Limits Amniotic Fluid UDAY FV: ?subjectively normal --------- BIOMETRY: --------- BPD: ?66.3 ??mm ? G.Age: ?? 26w 5d ?89 ??% OFD: ?87.2 ??mm HC: ?244.9 ??mm ? G.Age: ?? 26w 4d ?79 ??% AC: ?225.5 ??mm ? G.Age: ?? 27w 0d ?89 ??% FL: ? 45.8 ??mm ? G.Age: ?? 25w 1d ?37 ??% HUM: ?42.7 ??mm ? G.Age: ?? 25w 4d ?55 ??% CER: ?28.9 ??mm ? G.Age: ?? 25w 6d ?61 ??% NB: ?8.0 ??mm LV: ?3.6 ??mm CM: ?7.3 ??mm CI: ?76.0 ??% ? 70 - 86 FL/HC: ? 18.7 ??% ? 18.7 - 20.3 HC/AC: ? 1.09 ?1.04 - 1.22 FL/BPD: ?69.1 ??% ? 71 - 87 FL/AC: ? 20.3 ??% ? 20 - Est. FW: ? 916 ??gm ? 2 lb ?87 ??% OB HISTORY: : ?4 ? Luis: ?? 1 ? SAB: ?? 2 Living: ? 1 GESTATIONAL AGE: LMP: ? 28w 3d ?Date: ??08/17/23 ? ZAYDA: ?? 05/23/24 Clinical ZAYDA: ??25w 4d ?ZAYDA: ?? 06/12/24 U/S Today: ? 26w 3d ?ZAYDA: ?? 06/06/24 Best: ?25w 1d ?? Det. By: ??U/S C R L ?ZAYDA: ?? 06/15/24 ? (11/08/23) -------- ANATOMY: -------- Cranium: ? Visualized Cavum: ? Visualized Ventricles: ?Visualized Choroid Plexus: ?Visualized Cerebellum: ?Visualized Posterior Fossa: ? Visualized Nuchal Fold: ? Not evaluated at this gestational age Face: ?Limited views Heart: ? 4-chamber view appears normal Diaphragm: ? Visualized Stomach: ? Visualized Abdomen: ? Visualized Abdominal Wall: ?Cord Insertion - WNL Cord Vessels: ?3-vessels- WNL Kidneys: ? Visualized Bladder: ? Visualized Spine: ? Limited views Upper Extremities: ? Limited views Lower Extremities: ? Limited views CERVIX UTERUS ADNEXA: Right Ovary Not visualized Left Ovary Not visualized Procedure Note Walt Bay MD - 03/03/2024 OBSTETRICS REPORT (Signed Final 03/03/2024 03:27 pm) PATIENT INFO: ID #: [id number] : [birth year] (33 yrs)(F) Name: PREETHI Godoy Visit Date: 03/03/2024 03:20 pm MARIO FRANK PERFORMED BY: Performed By: Rina Smiley RDMS Attending: Sadie Bay MD Referred By: LINDA MEDINA Location: [facility] SERVICE(S) PROVIDED: UOBFOL - Efw - Growth - [place] - [id number] INDICATIONS: 25 weeks gestation of Z3A.25 reassess placental location VITAL SIGNS: Height: 5'8 EVALUATION: Num Of Fetuses: 1 Heart Rate(bpm): 153 Cardiac Activity: Observed, normal rhythm Presentation: Breech Placenta: Anterior P. Cord Insertion: Within Normal Limits Amniotic Fluid UDAY FV: subjectively normal --------- BIOMETRY: --------- BPD: 66.3 mm G.Age: 26w 5d 89 % OFD: 87.2 mm HC: 244.9 mm G.Age: 26w 4d 79 % AC: 225.5 mm G.Age: 27w 0d 89 % FL: 45.8 mm G.Age: 25w 1d 37 % HUM: 42.7 mm G.Age: 25w 4d 55 % CER: 28.9 mm G.Age: 25w 6d 61 % NB: 8.0 mm LV: 3.6 mm CM: 7.3 mm CI: 76.0 % 70 - 86 FL/HC: 18.7 % 18.7 - 20.3 HC/AC: 1.09 1.04 - 1.22 FL/BPD: 69.1 % 71 - 87 FL/AC: 20.3 % 20 - 24 Est. FW: 916 gm 2 lb 87 % OB HISTORY: : 4 Luis: 1 SAB: 2 Livin GESTATIONAL AGE: LMP: 28w 3d Date: 08/17/23 ZAYDA: 05/23/24 Clinical ZAYDA: 25w 4d ZAYDA: 06/12/24 U/S Today: 26w 3d ZAYDA: 06/06/24 Best: 25w 1d Det. By: U/S C R L ZAYDA: 06/15/24 (11/08/23) -------- ANATOMY: -------- Cranium: Visualized Cavum: Visualized Ventricles: Visualized Choroid Plexus: Visualized Cerebellum: Visualized Posterior Fossa: Visualized Nuchal Fold: Not evaluated at this gestational age Face: Limited views Heart: 4-chamber view appears normal Diaphragm: Visualized Stomach: Visualized Abdomen: Visualized Abdominal Wall: Cord Insertion - WNL Cord Vessels: 3-vessels- WNL Kidneys: Visualized Bladder: Visualized Spine: Limited views Upper Extremities: Limited views Lower Extremities: Limited views CERVIX UTERUS ADNEXA: Right Ovary Not visualized Left Ovary Not visualized IMPRESSION 2nd Trimester Summary Single intrauterine with a gestational age of 25w 1d based on U/S C R L (11/08/23) Composite age based on the current ultrasound alone is 26w 3d. Current growth parameters are consistent with prior dating indicating normal growth Amniotic fluid volume is subjectively normal. Limited anatomic evaluation was performed and no structural abnormalities are noted. The placenta is anterior with no evidence of a succienturiate lobe. Thank you for letting us participate in the care of this patient. If you are a health care provider and have any questions regarding this report, please contact the number above. For patients who have questions, please contact the health senior care specialist that requested your imaging first. Sadie Bay, Staff Physician Electronically Signed Final Report 03/03/2024 03:27 pm Linda Medina MD IMG US OB ORDERABLE S documented in this encounter Visit Diagnoses Diagnosis History of delivery, currently with history of pre-term labor documented in this encounter Care Teams Sewing Techniques Demonstrator Relationship Specialty Start Date End Date Richard Rasheed MD [address] [place] [address] PCP - General Family Medicine 07/05/23 documented as of this encounter
--- OUTSIDE RECORDS SUMMARY | 2024-03-15 15:27 | XMS_ITS | Encounter Summary ---
Author Organization [facility] Address [facility] [place] [address] Care Team Providers Care Heavy Media Operator Name Role Phone Richard Rasheed MD Primary Care Provider Encounter Details Date Type Department Care Team (Latest Contact Info) Description 02/07/2024 9:00 AM EDT - 02/07/2024 11:59 PM EDT Hospital [place] [phone] Walt Bay MD [facility] OBSTETRICS [place] [address] History of delivery, currently Discharge Disposition: Home [...] from your doctor or pharmacy? Never 10/12/2023 [facility] Utilities Answer Date Recorded In the past 12 months has e [employer], gas, oil, or water [employer] threatened to shut off services in your [...] any time in the past 12 m [facility], were you homeless or [...] daily. 90 tablet 3 11/15/2023 vitamin with zdcsmwyb-St-Ihee-FA Tablet Take by mouth. calcium carbonate (OS-LEMUEL) 648 mg calcium tablet Take 650 mg by mouth 3 times daily (with meals). documented as of this encounter Plan of Treatment Upcoming Encounters Date Type Department Care Team (Late st Contact Info) Description 05/23/2024 [place] [address] Lexii Ceja MD [facility] DR OBSTETRICS [place] [address] Scheduled Orders Name Type Priority Associated Diagnoses [...] Morphology (02/07/2024 10:39 AM EDT) WORKSTATION ID [id number] RAD Anatomical Region Laterality Modality Pelvis, Abdomen [...] have questions, please contact the health care team coordinator scheduler that requested your imaging first. ?Linda Diaz, Locker Room Clerk Electronically Signed Corrected Final Report ??02/07/2024 01:35 pm Narrative 02/07/2024 10:53 AM EDT OBSTETRICS REPORT ? (Corrected Final 02/07/2024 01:35 pm) PATIENT INFO: ID #: ? [id number] ?: ??[birth year] (33 yrs)(F) Name: ? SORURVASHI E ? Visit Date: 02/07/2024 10:23 am ? LOUISE- ? FRANK PERFORMED BY: Performed By: ? Aster Betancur RDMS Attending: ?Mathew LIMA, Lalita A. Referred By: ?Walt BAY Location: ? [facility] SERVICE(S) PROVIDED: [facility] - Detailed Morphology - [id number] ? [id number] UOBTVCER - Transvaginal ??2nd Trimester - ?22254 Cervical Length - [id number] INDICATIONS: 21 weeks gestation of ?Z3A.21 h/o [...] SVC: ? Visualized Interventr. Septum: ?Visualized Cardiac [place]: ?Visualized Diaphragm: ? Visualized 3 Vessel View: [...] 02/07/2024 01:35 pm) PATIENT INFO: ID #: [id number] : [birth year] (33 yrs)(F) Name: PREETHI Godoy Visit Date: 02/07/2024 10:23 am GILVishal MARIE PERFORMED BY: Performed By: Aster Betancur RDMS Attending: Lalita Carmona MD Referred By: Walt BAY Location: [facility] SERVICE(S) PROVIDED: [facility] - Detailed Morphology - [id number] UOBTVCER - Transvaginal 2nd Trimester - 11215 Cervical Length - [id number] INDICATIONS: 21 weeks gestation of Z3A.21 h/o [...] Visualized SVC: Visualized Interventr. Septum: Visualized Cardiac [place]: Visualized Diaphragm: Visualized 3 Vessel View: Visualized [...] have questions, please contact the health care team coordinator scheduler that requested your imaging first. Linda Diaz, Locker Room Clerk Electronically Signed Corrected Final Report 02/07/2024 01:35 pm E Jessica Bay MD IMG US OB ORDERAB LES documented in this encounter Visit Diagnoses Diagnosis History of delivery, currently with history of pre-term labor documented in this encounter Care Teams Heavy Media Operator Relationship Specialty Start Date End Date Richard Rasheed MD [address] [place] [address] PCP - General Family Medicine 07/05/23 documented as of this encounter
--- OUTSIDE RECORDS SUMMARY | 2024-03-15 15:27 | XMS_ITS | Encounter Summary ---
Author Organization Formerly [facility] [place] [address] Care Team Providers Care Office Support Clerk Name Role Phone Richard Rasheed MD Primary Care Provider [phone] Encounter Details Date Type Department Care Team (Late st Contact Info) Description 03/03/2024 Patient Outreach Obstetrics [place] [address] Estelle Felix LNA Social History Tobacco Use Types Packs/Day Years [...] from your doctor or pharmacy? Never 03/03/2024 [facility] Utilities Answer Date Recorded In the past 12 months has [facility], [address], oil, or water [email or web address] threatened to shut off services in your [...] any time in the past 12 m [facility], were you homeless or living in a jail (including now)? Yes 03/03/2024 Estimated Date of [...] Contact Info) Description 05/23/2024 [place] [address] Lexii Ceja MD [facility] OBSTETRICS [place] [address] documented as of this encounter Visit Diagnoses Not on filedocumented in this encounter Care Teams Office Support Clerk Relationship Specialty Start Date End Date Richard Rasheed MD [address] [place] [id number] PCP - General Family Medicine 07/05/23 documented as of this encounter
--- OUTSIDE RECORDS SUMMARY | 2024-03-15 15:27 | XMS_ITS | Encounter Summary ---
Author Organization [facility] Address [facility] [place] [address] Care Team Providers Care Lpn Private Duty Name Role Phone Richard Rasheed MD Primary Care Provider [phone] Encounter Details Date Type Department Care Team (Latest Contact Info) Description 03/04/2024 8:57 PM EST - 03/04/2024 10:20 PM [facility] [place] [phone] Lexii Ceja MD [facility] DR OBSTETRICS [place] [address] Discharge Disposition: Home Social History Tobacco Use [...] any time in the past 12 m [facility], were you homeless or living in a long-term (including now)? Yes 03/03/2024 Estimated Date of Delivery Comme nts Yes 06/15/2024 Based on Ultraso und Sex and Gender Information Value Date Recorded Sex Assigned at Female 10/12/2023 9:44 AM EDT Gender Identity Female 10/12/2023 9:44 AM EDT Sexual Orientation Straight 10/12/2023 9: 44 AM EDT documented as of this encounter Last Filed Vital Signs Vital Sign Reading Time Taken Comments Blood Pressure 107/55 03/04/2024 9:21 PM EST Pulse 80 03/04/2024 9:21 PM EST Temperature 36.9 ??C (98.4 ??F) 03/04/2024 9:21 PM ES T Respiratory Rate 16 03/04/2024 9:21 PM EST Oxygen Saturation 97% 03/04/2024 9:21 PM EST Inhaled Oxygen Concentration - - Weight - - Height - - Body Mass Index - - documented in this encounter Discharge Instructions * Discharge Instructions* Ambika Richmond RN - 03/04/2024 10:16 PM EST GESTATION - Less Than 37 Weeks Call [...] a vaginal exam in your doctor's or heating repair technician's office you should not bleed as much [...] dehydration Keep your regularly scheduled doctor or heating repair technician appointment To contact the OB doctor call To contact heating repair technician call Following your visit to [facility] Triage: New Medications: Special Instructions / Follow-up Care: documented in this encounter Medications at Time [...] daily. 90 tablet 3 11/15/2023 vitamin with jjlonzzz-Jq-Swcn-FA Tablet Take by mouth. calcium carbonate (OS-LEMUEL) 648 mg calcium tablet Take 650 mg by mouth 3 times daily (with meals). documented as of this encounter Progress Notes * Ambika Richmond RN - 03/04/2024 9:12 PM EST Patient to BP 10 as a triage patient for complaint of nausea and overall not feeling great today. EFM explained and applied. EFM strip reviewed by MD team. Okay to d/c monitoring. Discharge instructions reviewed with patient. Verbalized understanding. Copy given. Plan for MD team to call in two Rx's to help with acid reflux and nausea. Patient agrees with plan. D/C home. * Niraj Renee MD - 03/04/2024 9:06 PM EST OB Triage Note Patient name: Andree Hummel Date of : 1990 Date of visit: 03/04/2024 10:16 PM Andree Hummel is a 33 y.o. female with an ZAYDA of 06/15/2024, by Ultrasound whois at 25w2d weeks gestation. Chief Complaint: The patient presents for evaluation of nausea and vomiting and potential labor. She reportsshe has thrown up 4x today but she has not recently. She is also having lower back and hip pain. She is has been able to eat and drink today. She has been use mariajuana for nausea. She is also having acid reflux. She has adequate movement, no vaginal bleeding. She has also been having irregular, mild cramping. She does not feel like these are contractions, but she is concerned. She denies any sick contacts. Did not eat anything abnormal recently. Seen on 03/03 and SVE was closed with 2.5 of cervical length. has been complicated by: - hx of PTB at 31w - cervical length 4.4cm on TVUS - hypothyroidism (s/p thyroidectomy - benign findings) with inadequate control - current synthroid 375mcg - previous concern for low lying succenturiate lobe - RESOLVED - anterior placenta on most recent ultrasound Movement: normal Contractions: irregular Leaking: None Bleeding: none Preeclampsia signs and symptoms: None Physical Exam: Temp: [36.9 ??C (98.4 ??F)] Heart Rate: [80] Resp: [16] BP: (107)/(55) SpO2: [97 %] Heart Rate from SpO2: [79 bpm] Cervix Exam: 0/30/high FHR Evaluation: baseline 150, moderate variability, accels present, no decels, no ctx on toco Sterile Speculum: not indicated Most recent ultrasound from 03/03 reviewed. Breech presentation, anterior placenta, no succenturiate lobe, EFW 87%. TVUS 12/27/2023 cervical length 4.4cm Assessment: 33 y.o. female with an 06/15/2024, by Ultrasound who is at 25w2d gestation being evaluated for labor. Cervical exam unchanged from yesterday's exam and reassuring. Not in labor. Reactive NST. Adequately taking PO at home. Recommend zofran for nausea instead of mariajuana. Plan: - Zofran PRN for nausea - pepcid 40mg daily for reflux - prescriptions sent to [facility] - return precautions given Patient seen and discussed with GOOD Anderson attending. Niraj Renee MD OBGYN PGY1 Associated attestation - Lexii Ceja MD - 03/05/2024 12:35 AM EST Obstetrics and Gynecology Attending: I saw and evaluated Andree Hummel. I have reviewed the resident's history and confirmed it with the patient and I agree with the details as written. My physical examination confirms the resident's findings. The assessment and plan were formulated in discussion with me and I agree with them as documented. Lexii Ceja MD 12:35 AM 03/05/2024 documented in this encounter Plan of Treatment Upcoming Encounters Date Type Department Care Team (Late st Contact Info) Description 05/23/2024 Hospital [place] [address] Lexii Ceja MD [facility] DR OBSTETRICS [place] [address] documented as of this encounter Visit Diagnoses Not on filedocumented in this encounter Administered Medications Inactive Administered Medications - up to 3 most recent administrations Medication Order MAR Action Action Date Dose Rate Site ondansetron ODT (Zofran-ODT) disintegrating tablet 4 mg 4 mg, Oral, ONCE, 1 dose, On Sun03/04/24 at 2215, Routine Given 03/04/2024 10:12 PM EST 4 mg documented in this encounter Active and Recently Administered Medications Times are shown in EST. Scheduled Medication Order 03/02/2024 03/03/2024 03/04/2024 ondansetron ODT (Zofran-ODT) disintegrating tablet 4 mg (COMPLETED) 4 mg, Oral, ONCE, 1 dose, On Sun03/04/24 at 2215, Routine 2212 (Given - Provid er: Ambika Richmond RN) documented in this encounter Care Teams Lpn Private Duty Relationship Specialty Start Date End Date Richard Rasheed MD [address] [place] [address] PCP - General Family Medicine 07/05/23 documented as of this encounter
--- OUTSIDE RECORDS SUMMARY | 2024-03-15 15:27 | XMS_ITS | Encounter Summary ---
Author Organization [facility] Address [facility] [place] [address] Care Team Providers Care Vector Control Assistant Name Role Phone Richard Rasheed MD Primary Care Provider [phone] Encounter Details Date Type Department Care Team (Late st Contact Info) Description 02/11/2024 Orders Only Obstetrics [place] [address] Linda Diaz MD [facility] [place] [address] Hypothyroidism, postsurgical Social History Tobacco Use Types [...] your doctor or pharmacy? Never 10/12/[address] [facility] Utilities Answer Date Recorded In the past 12 months has [facility] electric, gas, oil, or water company [...] any time in the past 12 m [facility], were you homeless or [...] Contact Info) Description 05/23/2024 [place] [address] Lexii Ceja MD [facility] OBSTETRICS [place] [address] documented as of this encounter Results * T4, free (03/03/2024 4:15 PM EST) Free T4 1.30 0.93 - 1.70 ng/dL 03/03/2024 5:[address] [facility] Comment: Reference Interval (ng/dL): ?? Females: ? First Trimester: 0.97-1.68 ? Second Trimester: 0.77-1.51 ? Third Trimester: 0.77-1.49 Blood VENOUS BLOOD SPECIMEN / Unknown Venipuncture / Unknown 03/03/2024 4:15 PM EST 03/03/2024 4:15 PM EST Linda Diaz MD CHEMISTRY ORDERABLE S Performing Organization Address [facility] Co de Phone Number [facility] [place] [address] * (ABNORMAL) TSH (03/03/2024 4:15 PM EST) Pathologist [facility] Thyroid Stimulating Hormone 4.79(H) 0.27 - 4.20 mcIU/mL 03/03/2024 5:[address] [facility] Comment: Reference Interval (mcIU/mL): ?? Females: ? First Trimester: 0.23-3.88 ? Second Trimester: 0.22-3.90 ? Third Trimester: 0.44-4.66 Blood VENOUS BLOOD SPECIMEN / Unknown Venipuncture / Unknown 03/03/2024 4:15 PM EST 03/03/2024 4:15 PM EST Linda Diaz MD CHEMISTRY ORDERABLE S Performing Organization Address [facility] Co de Phone Number [facility] [place] [address] documented in this encounter Visit Diagnoses Diagnosis Hypothyroidism, postsurgical Postsurgical hypothyroidism documented in this encounter Care Teams Vector Control Assistant Relationship Specialty Start Date End Date Richard Rasheed MD [address] [place] [address] PCP - General Family Medicine 07/05/23 documented as of this encounter
--- OUTSIDE RECORDS SUMMARY | 2024-03-15 15:27 | XMS_ITS | Encounter Summary ---
Author Organization [facility] Address [facility] [place] [address] Care Team Providers Care Hair Clipper Power Name Role Phone Richard Rasheed MD Primary Care Provider [phone] Encounter Details Date Type Department Care Team [...] from your doctor or pharmacy? Never 10/12/2023 [facility] Utilities Answer Date Recorded In the past 12 months has [employer], gas, oil, or water [employer] threatened to shut off services in your [...] any time in the past 12 m [facility], were you homeless or living in [...] Info) Description 05/23/2024 Hospital En[place] [address] Lexii Ceja MD [facility] OBSTETRICS [place] [address] documented as of this encounter Visit Diagnoses Not on filedocumented in this encounter Care Teams Hair Clipper Power Relationship Specialty Start Date End Date Richard Rasheed MD [address] [place] [address] PCP - General Family Medicine 07/05/23 documented as of this encounter
--- OUTSIDE RECORDS SUMMARY | 2024-03-15 15:27 | XMS_ITS | Encounter Summary ---
Author Organization [facility] Address [facility] [place] [address] Care Team Providers Care Audience Coordinator Name Role Phone Richard Rasheed MD Primary Care Provider [phone] Reason for Visit * Reason Comments Routine Visit Ultrasound Finding 9 week u/s Encounter Details Date Type Department Care Team (Late st Contact Info) Description 11/08/2023 3:00 PM EDT Routine Obstetrics [place] [address] Lexii Mcginnis, [facility] [place] [address] OBSTET[place]ICS [place] [address] GA: [id number] Social History Tobacco Use Types [...] from your doctor or pharmacy? Never 10/12/2023 [facility] Utilities Answer Date Recorded In the [...] 11/08/2023 02:09 pm) PATIENT INFO: ID #: [id number] : [birth year] (33 yrs)(F) Name: PREETHI Godoy Visit Date: 11/08/2023 01:46 pm MARIO MARIE PERFORMED BY: Attending: Latoya Marquis MD Resident: Abdi LIMA, [facility] Performed By: Darwin Fleming RDMS Referred By: PAUL MENDEZ Location: [place] SERVICE(S) PROVIDED: UOBVIB - Viability <14 weeks - Transabdominal - [id number] INDICATIONS: 9 weeks gestation of Z3A.09 at [...] who have questions, please contact the health urgent care technician that requested your imaging first. Latoya Marquis, [employer] Strap Cutter Electronically Signed Final Report 11/08/2023 02:09 pm ZAYDA changed in chart. Plan for f/u with MFM due to total thyroidectomy and poor obstetric history (loss at 20 weeks, 33 week delivery) documented in this encounter Plan of Treatment Upcoming Encounters Date Type Department Care Team (Late st Contact Info) Description 05/23/2024 Hospital [place] [address] Lexii Ceja MD [facility] DR OBSTETRICS [place] [address] documented as of this encounter Procedures Procedure [...] in first trimester HIV SCREEN, 4TH GENERATION ([facility]/CGP/APD/NLH) Routine 11/08/2023 3:33 PM EDT care in first trimester HEPATITIS B SURFACE ANTIGEN Routine 11/08/2023 3:33 PM EDT care in first trimester TYPE AND SCREEN ([facility]/CGP/CARIE) Routine 11/08/2023 3:33 PM EDT care in first trimester T4, FREE Routine 11/08/2023 3:33 PM EDT documented in this encounter Results * (ABNORMAL) T4, free (11/08/2023 3:33 PM EDT) Free T4 0.85(L) 0.93 - 1.70 ng/dL [facility] Comment: Reference Interval (ng/dL): Females: ??First Trimester: 0.97-1.68 ??Second Trimester: 0.77-1.51 ??Third Trimester: 0.77-1.49 Blood 11/08/2023 3:33 PM EDT 11/08/2023 4:00 PM EDT Narrative Resulting Agency Comment Spec In Lab Lexii Mcginnis CNM CHEMISTRY ORDERABLES [facility] [place] [address] * Type and Screen Validity (11/08/2023 3:33 PM EDT) T&S only valid at [facility] Comment:This Type and Screen result is only valid at the [facility] Hospital Blood 11/08/2023 3:33 PM EDT 11/08/2023 3:47 PM EDT Narrative Resulting Agency Comment Spec In Lab Lexii Mcginnis [facility] LAB ORDER AMANDA Performing Organization Address City/[facility]/ZIP Co de Phone Number [facility] [place] [address] * ABORH Recheck Status (11/08/2023 3:33 PM EDT) ABORH Type Recheck Completed [facility] Blood 11/08/2023 3:33 PM EDT 11/08/2023 3:47 PM EDT Narrative Resulting Agency Comment Spec In Lab Lexii Mcginnis [facility] B[facility]OD [facility] LAB ORDER AMANDA Performing Organization Address [facility] Co de Phone Number [facility] [place] [address] * Type and screen ([facility]/CGP/CARIE) (11/08/2023 3:33 PM EDT) ABORH Type A POSITIVE [facility] Patient BB History Found [facility] Expires at [id number] on: 11-08-2023 [facility] Ab Screen Interp Negative [facility] Blood 11/08/2023 3:33 PM EDT 11/08/2023 3:33 PM EDT Narrative [facility] - 11/08/2023 3:33 PM EDT This Type and Screen result is only valid at the [facility] Hospital Resulting Agency Comment Spec In Lab Lexii Mcginnis [facility] LAB ORDER AMANDA Performing Organization Address City/[facility]/ZIP Co de Phone Number [facility] [place] [address] * HIV Screen, 4th Generation ([facility]/CGP/APD/NLH) (11/08/2023 3:33 PM EDT) Pathologist [facility] HIV Ab/Ag Screen Negative Negative [facility] Comment: This 4th Generation [...] HIV Comment Low Risk of HIV Infection [facility] Blood 11/08/2023 3:33 PM EDT 11/08/2023 3:50 PM EDT Narrative Resulting Agency Comment Spec In Lab Lexii GODOY CHEMISTRY ORDERABLES Performing Organization Address [facility]/ZIP Co de Phone Number [facility] [place] [address] * Syphilis Screening Antibody with reflex RPR (11/08/2023 3:33 PM EDT) Syphilis IgG/IgM Negative Negative [facility] Blood 11/08/2023 3:33 PM EDT 11/08/2023 3:50 PM EDT Narrative Resulting Agency Comment Spec In Lab Lexii GODOY CHEMISTRY ORDERABLES Performing Organization Address [facility] Co de Phone Number [facility] [place] [address] * (ABNORMAL) Differential, Automated (11/08/2023 3:33 PM EDT) Neutrophil % 70.6 % [facility] Neutrophil Absolute 6.25(H) 1.70 - 6.10 x10(3)/mc L [facility] Lymph % 19.6 % [facility] Lymphocytes Abs 1.7 0.9 - 3.2 x10(3)/mc L [facility] Monocyte % 8.2 % [facility] Monocyte Abs 0.7 0.3 - 0.9 x10(3)/mc L [facility] Eos % 0.8 % [facility] Eosinophils Abs 0.1 0.0 - 0.4 x10(3)/[facility] Basophil % 0.5 % [facility] Baso Absolute 0.0 0.0 - 0.1 x10(3)/[facility] Immature Gran % 0.30 % [facility] Comment: Immature granulocytes(IG's)percentage and absolute count will include metamyelocytes, myelocytes, and promyelocytes. Blood smears from CBCs yielding IG's will be scanned manually for concordance. If this scan disagrees with the automated IG or if promyelocytes are noted, a manual differential will be performed. Immature Gran Absolute 0.03 0.00 - 0.04 x10(3)/[facility] Blood 11/08/2023 3:33 PM EDT 11/08/2023 3:50 PM EDT Narrative Resulting Agency Comment Spec In Lab Lexii GODOY HEMATOLOGY ORDERABLE S [facility] [place] [address] * (ABNORMAL) Hemogram (11/08/2023 3:33 PM EDT) White Blood Cell 8.9 4.0 - 9.5 x10(3)/[facility] Red Blood Cell 3.39(L) 4.00 - 5.21 x10(6)/[facility] Hemoglobin 11.4(L) 11.7 - 15.5 g/dL [facility] Hematocrit 33.7(L) 35.7 - 45.8 % [facility] Mean Cell Volume 99.4(H) 82.6 - 94.4 fL [facility] Mean Cell Hemoglobin 33.6(H) 27.1 - 32.0 pg [facility] Mean Cell Hemoglobin Concentration 33.8 31.7 - 35.0 g/dL [facility] Platelet 204 145 - 357 x10(3)/[facility] RDW Standard Deviation 50.7(H) 37.0 - 46.0 [facility] RDW coefficient of variation 13.9 11.5 - 14.1 % [facility] Mean Platelet Volume 10.8 7.6 - 12.9 [facility] NRBC% auto 0.0 % [facility] NRBC Absolute 0.000 0.000 - 0.000 x10(3)/mc L [facility] Blood 11/08/2023 3:33 PM EDT 11/08/2023 3:50 PM EDT Narrative Resulting Agency Comment Spec In Lab Lexii Mcginnis CNM HEMATOLOGY ORDERABLE S Performing Organization Address [facility] Co de Phone Number [facility] [place] [address] * Rubella Antibody, IgG (11/08/2023 3:33 PM EDT) Rubella Antibody IgG Positive Positive [facility] Comment: Please note: ??A positive result for this assay indicates that antibody levels are >or= 10.0 IU/mL and is considered to be an indicator of positive immune status. Blood 11/08/2023 3:33 PM EDT 11/08/2023 3:50 PM EDT Narrative Resulting Agency Comment Spec In Lab Lexii Mcginnis CNM CHEMISTRY ORDERABLES Performing Organization Address [facility] Co de Phone Number [facility] [place] [address] * Hepatitis B Surface Antigen (11/08/2023 3:33 PM EDT) Hepatitis B Surface Antigen Negative Negative [facility] Blood 11/08/2023 3:33 PM EDT 11/08/2023 3:50 PM EDT Narrative Resulting Agency Comment Spec In Lab Lexii C Mcginnis CNM CHEMISTRY ORDERABLES Performing Organization Address [facility]/ZIP Co de Phone Number [facility] [place] [address] * Hepatitis C Antibody (11/08/2023 3:33 PM EDT) Hepatitis C Antibody Negative Negative [facility] Blood 11/08/2023 3:33 PM EDT 11/08/2023 3:50 PM EDT Narrative Resulting Agency Comment Spec In Lab Lexii Mcginnis CNM CHEMISTRY ORDERABLES Performing Organization Address [facility] Co de Phone Number [facility] [place] [address] * (ABNORMAL) TSH Coleman (11/08/2023 3:33 PM EDT) Thyroid Stimulating Hormone 30.70(H) 0.27 - 4.20 mcIU/mL [facility] Comment: Reference Interval (mcIU/mL): Females: ??First Trimester: 0.23-3.88 ??Second Trimester: 0.22-3.90 ??Third Trimester: 0.44-4.66 Blood 11/08/2023 3:33 PM EDT 11/08/2023 3:50 PM EDT Narrative Resulting Agency Comment Spec In Lab Lexii Mcginnis CNM CHEMISTRY ORDERABLES Performing Organization Address City/[facility] Co de Phone Number [facility] [place] [address] documented in this encounter Visit Diagnoses Diagnosis care in first trimester documented in this encounter Care Teams Audience Coordinator Relationship Specialty Start Date End Date Richard Rasheed MD [address] [place] [address] PCP - General Family Medicine 07/05/23 documented as of this encounter
--- OUTSIDE RECORDS SUMMARY | 2024-03-15 15:27 | XMS_ITS | Clinical Summary ---
Author Organization [facility] Address [facility] [place] [address] Care Team Providers Care Belt Fixer Name Role Phone Richard Rasheed MD Primary Care Provider [phone] Allergies Active Allergy Reactions Criticality Noted Date Comments Codeine Nausea And Vomiting Low 12/31/2019 Meperidine Anaphylaxis High 04/25/2012 Hydromorphone (Bulk) Hives High 03/22/2011 Medications Medication Sig Dispensed Refills Start Date End Date Status vitamin with oxvmlogj-Gn-Lcbc-FA Tablet Take by mouth. Active calcium carbonate (OS-SHIRA) 648 mg calcium tablet Take 650 mg by mouth 3 times daily (with meals). Active levothyroxine (Synthroid) 175 mcg tablet Take 1 tablet by mouth daily. 90 tablet 3 11/15/2023 Active levothyroxine (Synthroid) 200 mcg tablet Take 1 tablet by mouth daily. 90 tablet 3 11/15/2023 Active ondansetron ODT (Zofran-ODT) 4 mg disintegrating tablet Take 1 tablet by mouth every 4 hours as needed for Nausea. 20 tablet 03/04/2024 Active famotidine (Pepcid) 40 mg tablet Take 1 tablet by mouth daily. 50 tablet 1 03/04/2024 Active Active Problems Problem Noted Date Diagnosed [...] outside and recheck lab soon at [facility] lab. If TSH remains high, we may [...] Encounters Date Type Department Care Team Description 03/15/2024 Telephone [place]stetrics [place] [address] Hilda Jackson MD 03/04/2024 8:57 PM EST - 03/04/2024 10:20 PM [facility] Encounter [facility] [place] [address] Lexii Ceja MD Discharge Disposition: Home 03/04/2024 Telephone Obstetrics and Gynecology at [place] [address] Tye Gamble MD 03/03/2024 4:45 PM EST Laboratory Appointment Lab [address] [place] [address] Hypothyroidism, postsurgical 03/03/2024 4:00 PM EST Routine Obstetrics and Gynecology at [place] [address] Linda Medina MD GA: 25w1d 03/03/2024 2:14 PM EST - 03/03/2024 11:59 PM EST Hospital Encounter Radiology at [place] [address] Linda Medina MD History of delivery, currently Discharge Disposition: Home 03/03/2024 Patient Outreach Obstetrics and Gynecology at [place] [address] Estelle Felix LNA 03/03/2024 Travel 02/11/2024 Orders Only Obstetrics and Gynecology at [place] [phone] Linda Medina MD Hypothyroidism, postsurgical 02/07/2024 10:15 AM EDT Routine Obstetrics [place] [address] Linda Medina MD GA: 21w4d 02/07/2024 9:00 AM EDT - 02/07/2024 11:59 PM EDT Hospital Encounter Radiology at [place] [address] Walt Briseno MD History of delivery, currently Discharge Disposition: Home 02/07/2024 Travel 01/03/2024 Orders Only Obstetrics [place] [address] Maite Marks MD Hypothyroidism, postsurgical 12/27/2023 3:55 PM EDT Laboratory Appointment Lab [address] [address] care in first trimester; Hypothyroidism, postsurgical 12/27/2023 12:57 PM EDT - 12/27/2023 11:59 PM EDT Hospital [place] [address] Walt Briseno MD History of delivery, currently Discharge Disposition: Home 12/27/2023 Travel from Last 3 Months Immunizations Name Administration [...] from your doctor or pharmacy? Never 03/03/2024 [facility] Utilities Answer Date Recorded In the past 12 months has [employer], gas, oil, or water company threatened to [...] any time in the past 12 m [facility], were you homeless or living in a alf (including now)? Yes 03/03/2024 Estimated Date of [...] EST Inhaled Oxygen Concentration - - Weight 87.7 kg (193 lb 6.4 oz) 03/03/2024 3:31 P M EST Height 172.7 cm (5' 8) 04/26/2021 11:20 AM EST Body Mass Index 29.41 04/26/2021 11:20 AM EST Plan of Treatment Upcoming Encounters Date Type Department Care Team (Late st Contact Info) Description 05/23/2024 Hospital Encounter Birthing [facility] [place] [phone] Lexii Ceja MD [facility] [address] OBSTET[place]ICS [place] [address] Health Maintenance Due Date Last Done Comments Pneumococcal Vaccine: At-Ris k 5-64yrs (1 of 2 - PCV) 06/15/1997 Lipid Screening 06/15/2009 Hepatitis B vaccine (0-59 yrs) (1) 06/15/2010 Tetanus/Diphtheria/Pertussis Vaccines (1 - Tdap) 06/15/2010 PAP Smear 08/05/2023 08/04/2020 Covid-19 Vaccine (1 - season) 2023 Influenza (Flu) vaccine (1 o f 1 - Influenza standard series) 12/16/2023 01/16/2020, 01/15/2019 RSV Vaccine (1 - Risk pregna nt 1-dose series) 04/20/2024 HIV screen Completed 11/08/2023, 09/03/2012 Hepatitis C Screening Completed 11/08/2023 Procedures Procedure Name Priority Date/Time Associated Diagnosis Comments TSH Routine 03/03/2024 4:15 PM EST Hypothyroidism, postsurgical T4, FREE Routine 03/03/2024 4:15 PM EST Hypothyroidism, postsurgical US OB FOLLOW UP Routine 03/03/2024 3:22 PM EST History of delivery, currently US OB DETAILED MORPHOLOGY Routine 02/07/2024 10:39 AM EDT History of delivery, currently T4, FREE Routine 12/27/2023 2:54 PM EDT Hypothyroidism, postsurgical TSH CASCADE Routine 12/27/2023 2:54 PM EDT Hypothyroidism, postsurgical US OB CERVICAL LENGTH TRANSVAGINAL Routine 12/27/2023 1:31 PM EDT History of delivery, currently HIV SCREEN, 4TH GENERATION ([facility]/CGP/APD/NLH) Routine 11/08/2023 3:33 PM EDT care in first trimester HEPATITIS C ANTIBODY Routine 11/08/2023 3:33 PM EDT care in first trimester MEDART OPERATOR CYTOLOGY FINAL REPORT Routine 08/04/2020 10:25 AM EDT from Last 3 Months or Most Recently Relevant to Health Maintenance Results * (ABNORMAL) TSH (03/03/2024 4:15 PM EST) Thyroid Stimulating Hormone 4.79(H) 0.27 - 4.20 mcIU/mL 03/03/2024 5:41 PM EST [facility] Comment: Reference Interval (mcIU/mL): ?? Females: ? First Trimester: 0.23-3.88 ? Second Trimester: 0.22-3.90 ? Third Trimester: 0.44-4.66 Blood VENOUS BLOOD SPECIMEN / Unknown Venipuncture / Unknown 03/03/2024 4:15 PM EST 03/03/2024 4:15 PM EST Linda Medina MD CHEMISTRY ORDERABLE S Performing Organization Address [facility] Co de Phone Number [facility] [place] [address] * T4, free (03/03/2024 4:15 PM EST) Only the most recent of2 resultswithin the time period is included. Free T4 1.30 0.93 - 1.70 ng/dL 03/03/2024 5:41 PM EST [facility] Comment: Reference Interval (ng/dL): ?? Females: ? First Trimester: 0.97-1.68 ? Second Trimester: 0.77-1.51 ? Third Trimester: 0.77-1.49 Blood VENOUS BLOOD SPECIMEN / Unknown Venipuncture / Unknown 03/03/2024 4:15 PM EST 03/03/2024 4:15 PM EST Linda Medina MD CHEMISTRY ORDERABLE S Performing Organization Address [facility] Co de Phone Number [facility] [place] [address] * US OB Follow Up (03/03/2024 3:22 PM EST) WORKSTATION ID [id number] RAD Anatomical Region Laterality Modality Pelvis, Abdomen [...] who have questions, please contact the health rn care manager that requested your imaging first. ? Sadie Briseno, Staff Physician Electronically Signed Final Report ?? 03/03/2024 03:27 pm Narrative 03/03/2024 3:27 PM EST OBSTETRICS REPORT ?(Signed Final 03/03/2024 03:27 pm) PATIENT INFO: ID #: ? [id number] ?: ??[birth year] (33 yrs)(F) Name: ? PREETHI Godoy ? Visit Date: 03/03/2024 03:20 pm ? LOUISE- ? FRANK PERFORMED BY: Performed By: ? Sherice HARVEY, ??Rina Attending: ?Sadie Briseno MD Referred By: ?LINDA MEDINA Location: ? [place] SERVICE(S) PROVIDED: UOBFOL - Efw - Growth ??- [place] - [id number] ?[id number] INDICATIONS: 25 weeks gestation of ?Z3A.25 reassess [...] - 87 FL/AC: ? 20.3 ??% ? - Est. FW: ? 916 ??gm ? [...] Left Ovary Not visualized Procedure Note Walt Briseno MD - 03/03/2024 OBSTETRICS REPORT (Signed Final 03/03/2024 03:27 pm) PATIENT INFO: ID #: [id number] : [birth year] (33 yrs)(F) Name: PREETHI Godoy Visit Date: 03/03/2024 03:20 pm MARIO MARIE PERFORMED BY: Performed By: Rina Smiley RDMS Attending: Sadie Briseno MD Referred By: LINDA MEDINA Location: [place] SERVICE(S) PROVIDED: UOBFOL - Efw - Growth - [place] - [id number] INDICATIONS: 25 weeks gestation of Z3A.25 reassess [...] who have questions, please contact the health rn care manager that requested your imaging first. Sadie Briseno, Staff Physician Electronically Signed Final Report 03/03/2024 03:27 pm Linda Medina MD IMG US OB ORDERABLE S * US OB Detailed Morphology (02/07/2024 10:39 AM EDT) Maven WORKSTATION ID [id number] [facility] Anatomical Region Laterality Modality Pelvis, Abdomen Ultrasound [...] structural abnormalities are noted. Addendum by Dr Medina ZAYDA is corrected to reflect first ultrasound with CRL rather than ZAYDA by gestational sac. Changes also made in EPIC Thank you for letting us participate in the care of this patient. If you are a health care provider and have any questions regarding this report, please contact the number above. For patients who have questions, please contact the health rn care manager that requested your imaging first. ?Linda Medina, Leather Colorer Electronically Signed Corrected Final Report ??02/07/2024 01:35 pm Narrative 02/07/2024 10:53 AM EDT OBSTETRICS REPORT ? (Corrected Final 02/07/2024 01:35 pm) PATIENT INFO: ID #: ? [id number] ?: ??[birth year] (33 yrs)(F) Name: ? PREETHI Godoy ? Visit Date: 02/07/2024 10:23 am ? LOUISE- ? FRANK PERFORMED BY: Performed By: ? Aster Betancur RDMS Attending: ?Mathew LIMA, Lalita Diop Referred By: ?Walt BRISENO Location: ? [place] SERVICE(S) PROVIDED: [facility] - Detailed Morphology - [id number] ? [id number] UOBTVCER - Transvaginal ??2nd Trimester - ?85874 Cervical Length - [id number] INDICATIONS: 21 weeks gestation of ?Z3A.21 h/o [...] SVC: ? Visualized Interventr. Septum: ?Visualized Cardiac Laurel: ?Visualized Diaphragm: ? Visualized 3 Vessel View: [...] 02/07/2024 01:35 pm) PATIENT INFO: ID #: [id number] : [birth year] (33 yrs)(F) Name: PREETHI Godoy Visit Date: 02/07/2024 10:23 am MARIO MARIE PERFORMED BY: Performed By: Aster Betancur RDMS Attending: Lalita Carmona MD Referred By: Walt [facility] Location: [place] SERVICE(S) PROVIDED: [facility] - Detailed Morphology - [id number] UOBTVCER - Transvaginal 2nd Trimester - 35894 Cervical Length - [id number] INDICATIONS: 21 weeks gestation of Z3A.21 h/o [...] Visualized SVC: Visualized Interventr. Septum: Visualized Cardiac Laurel: Visualized Diaphragm: Visualized 3 Vessel View: Visualized [...] structural abnormalities are noted. Addendum by Dr Medina ZAYDA is corrected to reflect first ultrasound with CRL rather than ZAYDA by gestational sac. Changes also made in EPIC Thank you for letting us participate in the care of this patient. If you are a health care provider and have any questions regarding this report, please contact the number above. For patients who have questions, please contact the health rn care manager that requested your imaging first. Linda Medina, Leather Colorer Electronically Signed Corrected Final Report 02/07/2024 01:35 pm E Melany Briseno MD IMG US OB ORDERAB LES * (ABNORMAL) TSH [place] (12/27/2023 2:54 PM EDT) Pathologist [facility] Thyroid Stimulating Hormone 84.50(H) 0.27 - 4.20 mcIU/mL 12/27/2023 4:13 PM EDT [facility] Comment: Reference Interval (mcIU/mL): ?? Females: ? First Trimester: 0.23-3.88 ? Second Trimester: 0.22-3.90 ? Third Trimester: 0.44-4.66 Blood VENOUS BLOOD SPECIMEN / Unknown Venipuncture / Unknown 12/27/2023 2:54 PM EDT 12/27/2023 2:54 PM EDT Maite Marks MD CHEMISTRY ORDERABLES [facility] [place] [address] * US OB Cervical Length Transvaginal (12/27/2023 1:31 PM EDT) Maven WORKSTATION ID [id number] DH RAD Anatomical Region Laterality Modality Pelvis, [...] who have questions, please contact the health rn care manager that requested your imaging first. ? Linda Medina, Leather Colorer Electronically Signed Final Report ?? 12/27/2023 01:45 pm Narrative 12/27/2023 1:45 PM EDT OBSTETRICS REPORT ?(Signed Final 12/27/2023 01:45 pm) PATIENT INFO: ID #: ? [id number] ?: ??[birth year] (33 yrs)(F) Name: ? SORCHA E ? Visit Date: 12/27/2023 01:34 pm ? LOUISE- ? FRANK PERFORMED BY: Performed By: ? Car Can RDMS Attending: ?Emily LIMA, Linda Figueroa Referred By: ?E MELANY PSCHIRRER Location: ? [place] SERVICE(S) PROVIDED: UOBTVCER - Transvaginal ??2nd Trimester - ?89135 Cervical Length - [id number] INDICATIONS: 16 weeks gestation of ?Z3A.16 h/o [...] status post fundal pressure Procedure Note Linda Medina MD - 12/27/2023 OBSTETRICS REPORT (Signed Final 12/27/2023 01:45 pm) PATIENT INFO: ID #: [id number] : [birth year] (33 yrs)(F) Name: PREETHI Godoy Visit Date: 12/27/2023 01:34 pm MARIO MARIE PERFORMED BY: Performed By: Car Can RDMS Attending: Linda Medina MD Referred By: Walt BRISENO Location: [place] SERVICE(S) PROVIDED: UOBTVCER - Transvaginal 2nd Trimester - 08824 Cervical Length - [id number] INDICATIONS: 16 weeks gestation of Z3A.16 h/o [...] who have questions, please contact the health rn care manager that requested your imaging first. Linda Medina, Leather Colorer Electronically Signed Final Report 12/27/2023 01:45 pm E Melany Briseno MD [facility] OB ORDERAB LES * Hepatitis C Antibody (11/08/2023 3:33 PM EDT) Hepatitis C Antibody Negative Negative [facility] Blood 11/08/2023 3:33 PM EDT 11/08/2023 3:50 PM EDT Narrative Resulting Agency Comment Spec In Lab Lexii Mcginnis CNM CHEMISTRY ORDERABLES [facility] [place] [address] * HIV Screen, 4th Generation ([facility]/CGP/APD/NLH) (11/08/2023 3:33 PM EDT) HIV Ab/Ag Screen Negative Negative [facility] Comment: This 4th Generation [...] HIV Comment Low Risk of HIV Infection [facility] Blood 11/08/2023 3:33 PM EDT 11/08/2023 3:50 PM EDT Narrative Resulting Agency Comment Spec In Lab Lexii Khan Rahel CNM CHEMISTRY ORDERABLES [facility]IG[facility] [place] [address] * Plate And Weld Inspector Cytology Final Report (08/04/2020 10:25 AM EDT) Plate And Weld Inspector Cytology Final Report [id number] ? Location: 5L The signing pathologist has (i) examined the relevant preparation(s) for the specimen(s) and (ii) rendered or confirmed the diagnosis(es). . ? Plate And Weld Inspector Final DIAGNOSIS Infection and/or Reactive Repair Process Note: Reactive changes are present in the epithelial cells (benign cellular changes). This Pap test is negative for intraepithelial lesion or malignancy. (NILM) For consensus guidelines for the management of cervical cancer screening test results, please see: ?? http://www.asccp.o rg . Electronically signed by: ?Lori LIMA, Reji Guzman Verified: ??08/16/2020 12:02 ??Cytopathologist Performed at: ??-[facility] Dept. of Pathology, [place], [place] HPV RESULTS HPV testing either not indicated or not requested by clinician. STATEMENT OF ADEQUACY Specimen submitted is satisfactory. Endocervical component present. CLINICAL INFORMATION HPV Option: ?Reflex HPV CT/NG Option: ?Yes Preparation: ? Liquid based Pap Specimen Source: ? Cervical/Endocervi shira LMP: ? IUD Hysterectomy: ?No : ?No : ?No I.U.D.: ?No Pelvic Radiation: ?No Hist Abnl Pap/Biopsy: ?No Prior MEDART OPERATOR Therapy: ? No Hist of HPV Vaccine: ? No ICD Diagnosis: ? Z12.4 Encounter for screening for malignant neoplasm of cervix Clinical Data, Significant Therapy and Clinical Impression ?? : ?_ This Pap Test has been evaluated with the assistance of the MyPermissionsPrep Pap Test Imaging System. Note: The Pap test is a screening test for cervical cancer with an inherent false-negative rate dependent upon several variables. For further information please contact the [facility] Laboratory. Reference: Rosy ORTIZ. General Operations Agent of Pap Smear Results. In: Chelsey BS, Joshua HH, ed. The Pap Smear. [place]: Lázaro, 2002: 71-77. [facility] 08/04/2020 10:2 5 AM EDT Malena Hernandez FRUCTOSE LOADER PATHOLOGY/CYT OLOGY ORDERABLES [facility] [place] [address] from Last 3 Months or Most Recently [...] is based on Patients wishes. Care Teams Belt Fixer Relationship Specialty Start Date End Date Richard Rasheed MD [address] [place] [address] PCP - General Family Medicine 07/05/23
--- OUTSIDE RECORDS SUMMARY | 2024-03-15 15:27 | XMS_ITS | Encounter Summary ---
Author Organization [facility] Address [facility] [place] [address] Care Team Providers Care Assisted Living Associate Name Role Phone Richard Rasheed MD Primary Care Provider [phone] Encounter Details Date Type Department Care Team [...] from your doctor or pharmacy? Never 10/12/2023 [facility] Utilities Answer Date Recorded In the past 12 months has e [employer], gas, oil, or water [employer] threatened to shut off services in your [...] time in the past 12 m [facility], were you homeless or living [...] Description 05/23/2024 Hospital [place] [address] Lexii Ceja MD [facility] [place] [address] documented as of this encounter Visit Diagnoses Not on filedocumented in this encounter Care Teams Assisted Living Associate Relationship Specialty Start Date End Date Richard Rasheed MD [address] [place] [address] PCP - General Family Medicine 07/05/23 documented as of this encounter
--- OUTSIDE RECORDS SUMMARY | 2024-03-15 15:27 | XMS_ITS | Encounter Summary ---
Author Organization [facility] Address [facility] [place] [address] Care Team Providers Care Blood Bank Business Manager Name Role Phone Richard Rasheed MD Primary Care Provider [phone] Encounter Details Date Type Department Care Team (Late st Contact Info) Description 03/15/2024 Telephone Obstetrics [place] [phone] [facility] [address] OBSTETRICS & [place] [address] Social History Tobacco Use Types Packs/Day Years [...] from your doctor or pharmacy? Never 03/03/2024 [facility] Utilities Answer Date Recorded In the past 12 months has e electric, gas, oil, or water [employer] threatened to shut off services in your [...] time in the past 12 m [facility], were you homeless or living in a intermediate (including now)? Yes 03/03/2024 Estimated Date of Delivery Comme nts Yes 06/15/2024 Based on Ultraso und Sex and Gender Information Value Date Recorded Sex Assigned at Female 10/12/2023 9:44 AM EDT Gender Identity Female 10/12/2023 9:44 AM EDT Sexual Orientation Straight 10/12/2023 9: 44 AM EDT documented as of this encounter Miscellaneous Notes * Telephone Encounter - Hilda Jackson MD - 03/15/2024 2:24 PM EST TC Encounter Andree Hummel is 33 y.o. 26w6d called for not feeling well and having ?BH occurring q10 minutes. Overall severity is about the same compared to her recent triage evaluation. Her OB Hx is significant for Hx PTB at 31 week when she did not feel she was in labor. She denies associated VB/LOF/ or decreased movement presently. She reports baseline nausea otherwise no otherrelated symptoms. Recommended patient arrive for labor check. She's currently at work - about 2 hr away and has safe transportation. Hilda Jackson MD, PGY4 Obstetrics and Gynecology 03/15/2024 documented in this encounter Plan of Treatment Upcoming Encounters Date Type Department Care Team (Late st Contact Info) Description 05/23/2024 [place] [address] [facility] OBSTETRICS [place] [address] documented as of this encounter Visit Diagnoses Not on filedocumented in this encounter Care Teams Blood Bank Business Manager Relationship Specialty Start Date End Date Richard Rasheed MD [address] [place] [address] PCP - General Family Medicine 07/05/23 documented as of this encounter
--- OUTSIDE RECORDS SUMMARY | 2024-03-15 15:27 | XMS_ITS | Encounter Summary ---
Author Organization [facility] [place] [address] Care Team Providers Care Textile Finisher Name Role Phone Richard Rasheed MD Primary Care Provider [phone] Encounter Details Date Type Department Care Team (Late st Contact Info) Description 10/23/2023 Telephone [place]stetrics [place] [address] Natalia Bravo, RN Social History [...] from your doctor or pharmacy? Never 10/12/2023 [facility] Utilities Answer Date Recorded In the past [address] [facility] [employer], [place], oil, or water [employer] threatened to shut off services in your [...] PM EDT Attempted x3 to reach Andree Hummle 33 y.o. to check in on symptoms since reporting spotting at 6 weeks on 10/18. Patient briefly answered stating she was taking her son for an appointment and is not available to talk. She requested a call back at 1530. Re-attempted patient perher request, but no answer and VM box full. Sent a [employer] message to follow up/make a plan for a call. documented in this encounter Plan of Treatment Upcoming Encounters Date Type Department Care Team (Late st Contact Info) Description 05/23/2024 [place] [address] Lexii Ceja MD [facility] [address] OBSTETRICS [place] [address] documented as of this encounter Visit Diagnoses Not on filedocumented in this encounter Care Teams Textile Finisher Relationship Specialty Start Date End Date Richard Rasheed MD [address] [place] [address] PCP - General Family Medicine 07/05/23 documented as of this encounter
--- OUTSIDE RECORDS SUMMARY | 2024-03-15 15:27 | XMS_ITS | Encounter Summary ---
Author Organization [facility] Address [facility] [place] [address] Care Team Providers Care Director Search Name Role Phone Richard Rasheed MD Primary Care Provider [phone] Encounter Details Date Type Department Care Team (Latest Contact Info) Description 03/03/2024 Travel Social History Tobacco Use Types Packs/Day [...] from your doctor or pharmacy? Never 03/03/2024 [facility] Utilities Answer Date Recorded In the past 12 months has [facility] [employer], gas, oil, or water [employer] threatened to shut off services in [...] time in the past 12 m [facility], were you homeless or living in a detention (including now)? Yes 03/03/2024 Estimated Date of [...] Contact Info) Description 05/23/2024 Hospital [place] [phone] Lexii Ceja MD [facility] OBSTETRICS [place] [address] documented as of this encounter Visit Diagnoses Not on filedocumented in this encounter Care Teams Director Search Relationship Specialty Start Date End Date Richard Rasheed MD [address] [place] [address] PCP - General Family Medicine 07/05/23 documented as of this encounter
--- OUTSIDE RECORDS SUMMARY | 2024-03-15 15:27 | XMS_ITS | Encounter Summary ---
Author Organization [facility] [place] [address] Care Team Providers Care Band Instrument Maker Name Role Phone Richard Rasheed MD Primary Care Provider Encounter Details Date Type Department Care Team (Latest Contact Info) Description 03/03/2024 4:45 PM EST Laboratory Appointment Lab [address] [place] [address] Hypothyroidism, postsurgical Social History Tobacco Use Types [...] from your doctor or pharmacy? Never 03/03/2024 [facility] Utilities Answer Date Recorded In the past 12 months has [facility] [employer], oil, or water [employer] threatened to shut off services in your [...] any time in the past 12 m [facility], were you homeless or living in a mcfp (including now)? Yes 03/03/2024 Estimated Date of [...] Contact Info) Description 05/23/2024 Hospital [place] [address] Lexii Ceja MD [facility] DR OBSTETRICS [place] [address] documented as of this encounter Procedures Procedure Name Priority Date/Time Associated Diagnosis Comments TSH Routine 03/03/2024 4:15 PM EST Hypothyroidism, postsurgical T4, FREE Routine 03/03/2024 4:15 PM EST Hypothyroidism, postsurgical documented in this encounter Results * (ABNORMAL) TSH (03/03/2024 4:15 PM EST) Thyroid Stimulating Hormone 4.79(H) 0.27 - 4.20 mcIU/mL 03/03/2024 5:41 PM EST [facility] Comment: Reference Interval (mcIU/mL): ?? Females: ? First Trimester: 0.23-3.88 ? Second Trimester: 0.22-3.90 ? Third Trimester: 0.44-4.66 Blood VENOUS BLOOD SPECIMEN / Unknown Venipuncture / Unknown 03/03/2024 4:15 PM EST 03/03/2024 4:15 PM EST Linda Diaz MD CHEMISTRY ORDERABLE S [facility] [place] [address] * T4, free (03/03/2024 4:15 PM EST) Free T4 1.30 0.93 - 1.70 ng/dL 03/03/2024 5:41 PM EST [facility] Comment: Reference Interval (ng/dL): ?? Females: ? First Trimester: 0.97-1.68 ? Second Trimester: 0.77-1.51 ? Third Trimester: 0.77-1.49 Blood VENOUS BLOOD SPECIMEN / Unknown Venipuncture / Unknown 03/03/2024 4:15 PM EST 03/03/2024 4:15 PM EST Linda Diaz MD [place] [address] documented in this encounter Visit Diagnoses Diagnosis Hypothyroidism, postsurgical Postsurgical hypothyroidism documented in this encounter Care Teams Band Instrument Maker Relationship Specialty Start Date End Date Richard Rasheed MD [address] [place] [address] PCP - General Family Medicine 07/05/23 documented as of this encounter
--- OUTSIDE RECORDS SUMMARY | 2024-03-15 15:27 | XMS_ITS | Encounter Summary ---
Author Organization [facility] Address [facility] [place] [address] Care Team Providers Care Pharmacy Intern Name Role Phone Richard Rasheed MD Primary Care Provider [phone] Encounter Details Date Type Department Care Team [...] from your doctor or pharmacy? Never 10/12/2023 [facility] Utilities Answer Date Recorded In the past 12 months has [facility] [employer], gas, oil, or water [employer] threatened to shut off services in your [...] any time in the past 12 m [facility], were you homeless or living in [...] Contact Info) Description 05/23/2024 [place] [address] Lexii Ceja MD [facility] DR OBSTETRICS [place] [address] documented as of this encounter Visit Diagnoses Not on filedocumented in this encounter Care Teams Pharmacy Intern Relationship Specialty Start Date End Date Richard Rasheed MD [address] [place] [address] PCP - General Family Medicine 07/05/23 documented as of this encounter
--- OUTSIDE RECORDS SUMMARY | 2024-03-15 15:27 | XMS_ITS | Encounter Summary ---
Author Organization [facility] Address [facility] [place] [address] Care Team Providers Care Plant Wrapper Name Role Phone Richard Rasheed MD Primary Care Provider [phone] Encounter Details Date Type Department Care Team (Late st Contact Info) Description 02/07/2024 10:15 AM EDT Routine Obstetrics [place] [phone] Linda Medina MD [facility] MATERNAL [place] [address] GA: 21w4d Social History Tobacco Use Types [...] doctor or pharmacy? Never 10/12/2023 [facility] Utilities Answer Date Recorded In the past 12 months has e [employer], gas, oil, or water [employer] threatened to shut off services in your [...] in this encounter Progress Notes * Linda Medina MD - 02/07/2024 10:15 AM EDT GLORIA 22w0d (lives in [facility] but plans care here) Feels well. No [...] from outside and recheck lab soon at [facility] lab. If TSH remains high, we may [...] * Assessment & Plan Note - Linda Medina MD - 02/07/2024 1:40 PM EDT Associated [...] from outside and recheck lab soon at [facility] lab. If TSH remains high, we may add cytomel short-acting to suppress TSH down or switch synthroid to Tirosint but the latter will be more costly and will try to improve her GI absorption for synthroid first. * Assessment & Plan Note - Linda Medina MD - 02/07/2024 1:39 PM EDT Associated Problem(s): Premature delivery Serial CL with no shortening /1\ Ucx no ASB Precautions reviewed. documented in this encounter Plan of Treatment Upcoming Encounters Date Type Department Care Team (Late st Contact Info) Description 05/23/2024 Hospital Encounter [place] [address] Lexii Ceja MD [facility] OBSTETRICS [place] [address] Scheduled Orders Name Type Priority Associated Diagnoses Orde r Schedule Gestational Diabetes Screen Lab Routine History of delivery, currently Expected: 03/09/2024 (Approximate), Expires: 09/08/2024 Syphilis Screening Antibody with reflex RPR Lab Routine History of delivery, currently Expected: 03/09/2024, Expires: 09/08/2024 Hemogram Lab Routine History of delivery, currently Expected: 03/09/2024 (Approximate), Expires: 05/09/2024 documented as of this encounter Results * US OB Follow Up (03/03/2024 3:22 PM EST) [employer] WORKSTATION ID [id number] DH RAD Anatomical Region Laterality Modality Pelvis, [...] who have questions, please contact the health acute care registered nurse that requested your imaging first. ? Sadie Bay, Staff Physician Electronically Signed Final Report ?? 03/03/2024 03:27 pm Narrative 03/03/2024 3:27 PM EST OBSTETRICS REPORT ?(Signed Final 03/03/2024 03:27 pm) PATIENT INFO: ID #: ? [id number] ?: ??[birth year] (33 yrs)(F) Name: ? PREETHI Godoy ? Visit Date: 03/03/2024 03:20 pm ? LOUISE- ? FRANK PERFORMED BY: Performed By: ? Sherice HARVEY, ??Rina Attending: ?Sadie Bay MD Referred By: ?LINDA MEDINA Location: ? [place] SERVICE(S) PROVIDED: UOBFOL - Efw - Growth ??- [place] - [id number] ?[id number] INDICATIONS: 25 weeks gestation of ?Z3A.25 reassess [...] FL/AC: ? 20.3 ??% ? 20 - 24 Est. FW: ? 916 ??gm ? 2 [...] 03/03/2024 03:27 pm) PATIENT INFO: ID #: [id number] : [birth year] (33 yrs)(F) Name: PREETHI Godoy Visit Date: 03/03/2024 03:20 pm MARIO MARIE PERFORMED BY: Performed By: Rina Smiley RDMS Attending: Sadie Bay MD Referred By: LINDA MEDINA Location: [place] SERVICE(S) PROVIDED: UOBFO - [facility] - [id number] INDICATIONS: 25 weeks gestation of Z3A.25 reassess placental location VITAL SIGNS: Height: 5'8 EVALUATION: Num Of Fetuses: 1 Heart Rate(bpm): 153 Cardiac Activity: Observed, normal rhythm Presentation: Breech Placenta: Anterior P. Cord Insertion: Within Normal Limits Amniotic Fluid UDAY FV: subjectively normal --------- BIOMETRY: --------- BPD: 66.3 mm G.Age: 26w 5d 89 % OFD: 87.2 mm HC: 244.9 mm G.Age: w 4d 79 % AC: 225.5 mm G.Age: 27w 0d 89 % FL: 45.8 mm G.Age: w 1d 37 % HUM: 42.7 mm G.Age: w 4d 55 % CER: 28.9 mm G.Age: [...] who have questions, please contact the health acute care registered nurse that requested your imaging first. Sadie Bay, [...] antibodies Other and unspecified nonspecific immunological findings History of delivery, currently with history of pre-term labor documented in this encounter Care Teams Plant Wrapper Relationship Specialty Start Date End Date Richard Rasheed MD [address] [place] [address] PCP - General Family Medicine 07/05/23 documented as of this encounter
--- OUTSIDE RECORDS SUMMARY | 2024-03-15 15:27 | XMS_ITS | Encounter Summary ---
Author Organization [facility] Address [facility] [place] [address] Care Team Providers Care Genetics Nurse Name Role Phone Richard Rasheed MD Primary Care Provider [phone] Encounter Details Date Type Department Care Team (Late st Contact Info) Description 03/04/2024 Telephone Obstetrics [place] [phone] Tye Gamble MD [facility] DR OBSTETRICS & [place] [address] Social History Tobacco Use Types Packs/Day Years [...] from your doctor or pharmacy? Never 03/03/2024 [facility] Utilities Answer Date Recorded In the past 12 months has e [employer], gas, oil, or water [employer] threatened to shut off services in your [...] any time in the past [address] [facility], were you homeless or [...] Telephone Encounter - Tye Gamble MD - 03/04/2024 7:11 PM EST Telephone Phone Note Andree Hummel is a 33 y.o. at 25w2d who calls with nausea (baseline for her), manages typically well at home. Today, every time she moves she is about to puke. Thrown up 4x today. She is having a lot of lower back pain, hip area. She's been able to eat and drink okay. Adequate movement, no vaginal bleeding, mild cramping. To her this does not feel like contractions, however she does have a history of labor. Recommend patient evaluation tonight at the , symptomatic relief of N/V, cervical exam. She lives1 hr 15 mins away. She prefers to continuing monitoring symptoms for the next hour and agrees to come in if she is not feeling any better. Offered rx of Zofran, however pharmacies around her are currently closed. Precautions reviewed. She is aware to present to tonight at any time. Tye Gamble MD, PGY4 Obstetrics and Gynecology 03/04/2024 documented in this encounter Plan of Treatment Upcoming Encounters Date Type Department Care Team (Late st Contact Info) Description 05/23/2024 [place] [phone] Lexii Ceja MD [facility] DR OBSTETRICS [place] [address] documented as of this encounter Visit Diagnoses Not on filedocumented in this encounter Care Teams Genetics Nurse Relationship Specialty Start Date End Date Richard Rasheed MD [address] [place] [address] PCP - General Family Medicine 07/05/23 documented as of this encounter
--- OUTSIDE RECORDS SUMMARY | 2024-03-15 15:27 | XMS_ITS | Encounter Summary ---
Author Organization [facility] Address [facility] [place] [address] Care Team Providers Care Manager Wind Name Role Phone Richard Rasheed MD Primary Care Provider [phone] Encounter Details Date Type Department Care Team (Late st Contact Info) Description 10/19/2023 Telephone [place] [phone] Tye Gamble MD [facility] OBSTETRICS & [place] [address] Social History Tobacco Use Types Packs/Day Years [...] In the past 12 months has e [employer], gas, oil, or water [employer] threatened to shut off services in your [...] any time in the past 12 m [facility], were you homeless or [...] (10/11, 10/14) and TVUS in [address] [facility] message sent to patient earlier this week with reminder to complete beta hcg. Andree reports that she is doing well at this time, denies any further vaginal bleeding or spotting. Tried to get lab drawn at [facility] this week, however was told she needed to get first measurement at [facility] (lab requisition already sent to [facility], with no specification on where/when lab needs [...] Contact Info) Description 05/23/2024 Hospital [place] [address] Lexii Ceja MD [facility] OBSTETRICS [place] [address] documented as of this encounter Visit Diagnoses Not on filedocumented in this encounter Care Teams Manager Wind Relationship Specialty Start Date End Date Richard Rasheed MD [address] [place] [address] PCP - General Family Medicine 07/05/23 documented as of this encounter
--- OUTSIDE RECORDS SUMMARY | 2024-03-15 15:27 | XMS_ITS | Encounter Summary ---
Author Organization [facility] Address [facility] [place] [address] Care Team Providers Care Medical Examiner Name Role Phone Richard Rasheed MD Primary Care Provider [phone] Encounter Details Date Type Department Care Team (Late st Contact Info) Description 03/03/2024 4:00 PM EST Routine Obstetrics [place] [phone] Linda Diaz MD [facility] MATERNAL [place] [address] GA: 25w1d Social History Tobacco Use Types Packs/Day Years [...] from your doctor or pharmacy? Never 03/03/2024 [facility] Utilities Answer Date Recorded [...] any time in the past 12 m [facility], were you homeless or living in a m[facility] (including now)? Yes 03/03/2024 Estimated Date of Delivery Comme nts Yes 06/15/2024 Based on Ultraso und Sex and Gender Information Value Date Recorded Sex Assigned at Female 10/12/2023 9:44 AM EDT Gender Identity Female 10/12/2023 9:44 AM EDT Sexual Orientation Straight 10/12/2023 9: 44 AM EDT documented as of this encounter Last Filed Vital Signs Vital Sign Reading Time Taken Comments Blood Pressure 108/62 03/03/2024 3:31 PM EST Pulse - - Temperature - - Respiratory Rate - - Oxygen Saturation - - Inhaled Oxygen Concentration - - Weight 87.7 kg (193 lb 6.4 oz) 03/03/2024 3:31 P M EST Height - - Body Mass Index 29.41 04/26/2021 11:20 AM EST documented in this encounter Progress Notes * Linda Diaz MD - 03/03/2024 4:00 PM EST GLORIA 25w1d Reports some cramping and increased mucous BP 108/62 Wt 87.7 kg (193 lb 6.4 oz) LMP 08/17/2023 BMI 29.41 kg/m?? US today: Anterior placenta-- no succenturiate lobe. EFW: 916g 87% Exam: closed with 2.5cm of vaginal length History of PTB at 31w: NO cervical shortening on US. Exam reassuring today. Reviewed precautions. Hypothyroidism (s/p thyroidectomy) with inadequate control: Please see my prior note-- this was NOTfor cancer diagnosis. Current dose 375mcg CORRECTED REPORT (see Comment) Thyroid and central [...] review of endo note suggests GI absorption with wild swings in her TSH. We discussed taking on empty stomach etc. Today TSH much better. She has endocrine follow up soon-- no change made today. 3. PNC-- up to date. Ordered /3\ labs GLORIA in 3w documented in this encounter Plan of Treatment Upcoming Encounters Date Type Department Care Team (Late st Contact Info) Description 05/23/2024 Hospital [place] [address] Lexii Ceja MD [facility] OBSTETRICS [place] [address] documented as of this encounter Visit Diagnoses Diagnosis Hypothyroidism, postsurgical Postsurgical hypothyroidism documented in this encounter Care Teams Medical Examiner Relationship Specialty Start Date End Date Richard Rasheed MD [address] [place] [address] PCP - General Family Medicine 07/05/23 documented as of this encounter
--- OUTSIDE RECORDS SUMMARY | 2024-03-15 15:27 | XMS_ITS | Encounter Summary ---
Author Organization [facility] [place] [address] Care Team Providers Care Interventional Radiology Technologist Name Role Phone Richard Rasheed MD Primary Care Provider [phone] Encounter Details Date Type Department Care Team (Late st Contact Info) Description 11/20/2023 Telephone Obstetrics [place] [phone] Suzanne Bhatti, [facility] OBSTETRICS & [place] [address] Social History Tobacco Use Types Packs/Day Years [...] from your doctor or pharmacy? Never 10/12/2023 [facility] Utilities Answer Date Recorded In the past 12 months has [facility] [employer], gas, oil, or water [employer] threatened to shut off services in your [...] 11:30 AM MH US ROOM 1 US [facility] Rad 12/27/2023 1:00 PM Lalita Carmona MD [facility] [address] 01/10/2024 9:15 AM MH DB US ROOM 1 [facility] Rad 01/10/2024 10:15 AM Linda Diaz MD [facility] [address] 01/24/2024 9:00 AM MH DB US ROOM 1 [facility] Rad 01/24/2024 10:15 AM Walt Bay MD [facility] [address] 02/07/2024 9:15 AM [facility] DB US ROOM 1 [facility] Rad 02/07/2024 10:15 AM Vernon Mera MD [facility] [address] Suzanne Bhatti DO, PGY-3 Obstetrics and Gynecology 11/20/23 documented in this encounter Plan of Treatment Upcoming Encounters Date Type Department Care Team (Late st Contact Info) Description 05/23/2024 [place] [address] Lexii Ceja MD [facility] DR OBSTETRICS [place] [address] documented as of this encounter Visit Diagnoses Not on filedocumented in this encounter Care Teams Interventional Radiology Technologist Relationship Specialty Start Date End Date Richard Rasheed MD [address] [place] [address] PCP - General Family Medicine 07/05/23 documented as of this encounter
--- OUTSIDE RECORDS SUMMARY | 2024-03-15 15:27 | XMS_ITS | Encounter Summary ---
Author Organization [facility] Address [facility] [place] [address] Care Team Providers Care Algebra Tutor Name Role Phone Richard Rasheed MD Primary Care Provider [phone] Encounter Details Date Type Department Care Team [...] from your doctor or pharmacy? Never 10/12/2023 [facility] Utilities Answer Date Recorded In the past 12 months has e [employer], gas, oil, or water [employer] threatened to shut off services in your [...] Info) Description 05/23/2024 Hospital Encounter [place] [address] Lexii Ceja MD [facility] OBSTETRICS [place] [address] documented as of this encounter Visit Diagnoses Not on filedocumented in this encounter Care Teams Algebra Tutor Relationship Specialty Start Date End Date Richard Rasheed MD [address] [place] [address] PCP - General Family Medicine 07/05/23 documented as of this encounter
--- OUTSIDE RECORDS SUMMARY | 2024-03-15 15:27 | XMS_ITS | Encounter Summary ---
Author Organization [facility] [place] [address] Care Team Providers Care Scientific Helper Name Role Phone Richard Rasheed MD Primary Care Provider [phone] Encounter Details Date Type Department Care Team (Late st Contact Info) Description 11/22/2023 Telephone Obstetrics [place] [address] Suri Menon RN Social History [...] Recorded In the past 12 months has [facility] [employer], [employer], oil, or water [email or web address] threatened to shut off services in your [...] any time in the past 12 m [facility], were you homeless or [...] AM EDT TC from Andree Hummel 11w0d [facility] Team Next OB visit 12/26 Reason for call: Vaginal bleeding Andree states that she had spotting a couple of days ago. She states she is calling today in response to a message she received from press secretary staff regarding scheduling a follow up [...] Contact Info) Description 05/23/2024 Hospital [place] [address] Lexii Ceja MD [facility] DR OBSTETRICS [place] [address] documented as of this encounter Visit Diagnoses Not on filedocumented in this encounter Care Teams Scientific Helper Relationship Specialty Start Date End Date Richard Rasheed MD [address] [place] [address] PCP - General Family Medicine 07/05/23 documented as of this encounter
--- OUTSIDE RECORDS SUMMARY | 2024-03-15 15:27 | XMS_ITS | Encounter Summary ---
Author Organization [facility] Address [facility] [place] [address] Care Team Providers Care Salon Receptionist Name Role Phone Richard Rasheed MD Primary Care Provider [phone] Reason for Referral * Consultation (Routine) - Closed Specialty Diagnoses / Procedures Referred By Contwillow t Referred To Contact Endocrinology Diagnoses Hypothyroidism, postsurgical Maite Marks MD [facility] OBSTETRICS [place] [address] [facility] [address] [place] [phone] Referral ID Status Reason Start Date Expiration Date V isits Requested Visits Authorized [id number] Closed Consult, Test & Treat 01/03/2024 01/02/2025 1 1 Encounter Details Date Type Department Care Team (Late st Contact Info) Description 01/03/2024 Orders Only Obstetrics [place] [address] Maite Marks MD [facility] OBSTETRICS [place] [address] Hypothyroidism, postsurgical Social History Tobacco [...] any time in the past 12 m [facility], were you homeless or living in a [...] Contact Info) Description 05/23/2024 Hospital [place] [address] Lexii Ceja MD [facility] DR OBSTETRICS [place] [address] Scheduled Referrals Name Type Priority Associated Diagnoses Orde r Schedule Referral to Endocrinology Outpatient Referral Routine Hypothyroidism, postsurgical Ordered: 01/03/2024 documented as of this encounter Visit Diagnoses Diagnosis Hypothyroidism, postsurgical Postsurgical hypothyroidism documented in this encounter Care Teams Salon Receptionist Relationship Specialty Start Date End Date Richard Rasheed MD [address] [place] [address] PCP - General Family Medicine 07/05/23 documented as of this encounter
--- OUTSIDE RECORDS SUMMARY | 2024-03-15 15:27 | XMS_ITS | Encounter Summary ---
Author Organization [facility] [place] [address] Care Team Providers Care Budget Controller Name Role Phone Richard Rasheed MD Primary Care Provider [phone] Encounter Details Date Type Department Care Team (Late st Contact Info) Description 11/21/2023 Telephone Obstetrics [place] [address] Sary Harris Social History Tobacco [...] from your doctor or pharmacy? Never 10/12/2023 [facility] Utilities Answer Date Recorded In the past 12 months has [facility] [employer], [employer], oil, or water [employer]ding [employer] threatened to shut off services in your [...] any time in the past 12 m [facility], were you homeless or living in [...] Contact Info) Description 05/23/2024 Hospital Encounter Birthing [place] [phone] Lexii Ceja MD [facility] OBSTETRICS [place] [address] documented as of this encounter Visit Diagnoses Not on filedocumented in this encounter Care Teams Budget Controller Relationship Specialty Start Date End Date Richard Rasheed MD [address] [place] [address] PCP - General Family Medicine 07/05/23 documented as of this encounter
--- OUTSIDE RECORDS SUMMARY | 2024-03-15 15:27 | XMS_ITS | Encounter Summary ---
Author Organization [facility] Address [facility] [place] [address] Care Team Providers Care Hand Spring Former Name Role Phone Richard Rasheed MD Primary Care Provider [phone] Encounter Details Date Type Department Care Team (Late st Contact Info) Description 10/31/2023 Notes [place] [phone] Tye Gamble MD [facility] OBSTETRICS & [place] [address] Social History Tobacco Use Types Packs/Day Years [...] In the past 12 months has e [employer], gas, oil, or water [employer] threatened to shut off services in your [...] any time in the past 12 m [facility], were you homeless or living in [...] Contact Info) Description 05/23/2024 [place] [address] Lexii Ceja MD [facility] DR OBSTETRICS [place] [address] documented as of this encounter Visit Diagnoses Not on filedocumented in this encounter Care Teams Hand Spring Former Relationship Specialty Start Date End Date Richard Rasheed MD [address] [place] [address] PCP - General Family Medicine 07/05/23 documented as of this encounter
--- OUTSIDE RECORDS SUMMARY | 2024-03-15 15:27 | XMS_ITS | Encounter Summary ---
Author Organization [facility] [place] [address] Care Team Providers Care Offbearer Sewer Pipe Name Role Phone Richard Rasheed MD Primary Care Provider [phone] Encounter Details Date Type Department Care Team (Late st Contact Info) Description 11/29/2023 Telephone [place] [phone] Suzanne Bhatti, [facility] OBSTETRICS [place] [address] Social History Tobacco Use Types Packs/Day Years [...] from your doctor or pharmacy? Never 10/12/2023 [facility] Utilities Answer Date Recorded In the past 12 months has e [employer], gas, oil, or water [employer] threatened to shut off services in your [...] were you homeless or living in a prison (including now)? Yes 10/12/2023 Estimated Date of [...] Contact Info) Description 05/23/2024 [place] [address] Lexii Ceja MD [facility] DR OBSTETRICS [place] [address] documented as of this encounter Visit Diagnoses Not on filedocumented in this encounter Care Teams Offbearer Sewer Pipe Relationship Specialty Start Date End Date Richard Rasheed MD [address] [place] [address] PCP - General Family Medicine 07/05/23 documented as of this encounter
--- OUTSIDE RECORDS SUMMARY | 2024-03-15 15:27 | XMS_ITS | Encounter Summary ---
Author Organization [facility] Address [facility] [place] [address] Care Team Providers Care Simplex Printer Installer Name Role Phone Richard Rasheed MD Primary Care Provider [phone] Encounter Details Date Type Department Care Team (Latest Contact Info) Description 11/08/2023 1:29 PM EDT - 11/08/2023 11:59 PM EDT Hospital En[place] [phone] Paul Mendez MD [facility] OBSTETRICS [place] [address] care in first trimester Discharge Disposition: Home [...] from your doctor or pharmacy? Never 10/12/2023 [facility] Utilities Answer Date Recorded In the past 12 months has e [employer], gas, oil, or water company threatened to [...] any time in the past 12 m [facility], were you homeless or living [...] by mouth daily. 50 tablet 1 03/04/2024 vitamin with qzojiiyo-Cs-Oqif-FA Tablet Take by mouth. calcium carbonate (OS-LEMUEL) [...] tablet 05/10/2021 11/15/2023 celecoxib (CELEBREX) 200 mg CapsuleIndications:Scapul ar dyskinesis Take 1 capsule by mouth daily. 30 capsule 1 12/24/2018 11/15/2023 levothyroxine sodium (LEVOTHYROXINE ORAL) 225 mcg. 0 05/23/2017 024 documented as of this encounter Plan of Treatment Upcoming Encounters Date Type Department Care Team (Late st Contact Info) Description 05/23/2024 [place] [address] Lexii Ceja MD [facility] DR OBSTETRICS [place] [address] documented as of this encounter Procedures Procedure Name Priority Date/Time Associated Diagnosis Comments US OB VIABILITY TRANSABDOMINAL Routine 11/08/2023 1:48 PM EDT care in first trimester documented in this encounter Results * US OB Viability Transabdominal (11/08/2023 1:48 PM EDT) WORKSTATION ID [id number] RAD Anatomical Region Laterality Modality Pelvis, Abdomen [...] PM Electronically signed by: Latoya Marquis MD, [facility] ([phone]), at 11/08/2023 2:02 PM Thank you for letting us participate in the care of this patient. If you are a health care provider and have any questions regarding this report, please contact the number above. For patients who have questions, please contact the health aged or disabled care worker that requested your imaging first. ?Latoya Marquis, E Sterilizer Operator Electronically Signed Final Report ?? 11/08/2023 02:09 pm Narrative 11/08/2023 2:10 PM EDT OBSTETRICS REPORT ? (Signed Final 11/08/2023 02:09 pm) PATIENT INFO: ID #: ? [id number] ?: ??[birth year] (33 yrs)(F) Name: ? SORCHA E ? Visit Date: 11/08/2023 01:46 pm ? LOUISE- ? FRANK PERFORMED BY: Attending: ?Kandis LIMA, Latoya Figueroa Resident: ? Abdi LIMA, Keenan Performed By: ? Darwin Fleming RDMS Referred By: ?PAUL MENDEZ Location: ? [place] SERVICE(S) PROVIDED: UOBVIB - ??Viability <14 weeks - Transabdominal - ?[id number] INDICATIONS: 9 weeks gestation of ?Z3A.09 at [...] Cul De Sac No fluid seen Procedure Latoya Estevez MD - 11/08/2023 OBSTETRICS REPORT (Signed Final 11/08/2023 02:09 pm) PATIENT INFO: ID #: [id number] : [birth year] (33 yrs)(F) Name: PREETHI Godoy Visit Date: 11/08/2023 01:46 pm GILVishal MARIE PERFORMED BY: Attending: Latoya Marquis MD Resident: Abdi LIMA, [facility] Performed By: Darwin Fleming RDMS Referred By: PAUL MENDEZ Location: [place] SERVICE(S) PROVIDED: UOBVIB - Viability <14 weeks - Transabdominal - [id number] INDICATIONS: 9 weeks gestation of Z3A.09 at [...] PM Electronically signed by: Latoya Marquis MD, [facility] ([phone]), at 11/08/2023 2:02 PM Thank you for letting us participate in the care of this patient. If you are a health care provider and have any questions regarding this report, please contact the number above. For patients who have questions, please contact the health aged or disabled care worker that requested your imaging first. Latoya Marquis E Sterilizer Operator Electronically Signed Final Report 11/08/2023 02:09 pm Paul Mendez MD IMG US OB ORDERABLE S documented in this encounter Visit Diagnoses Diagnosis care in first trimester documented in this encounter Care Teams Simplex Printer Installer Relationship Specialty Start Date End Date Richard Rasheed MD [address] [place] [address] PCP - General Family Medicine 07/05/23 documented as of this encounter
--- OUTSIDE RECORDS SUMMARY | 2024-03-15 15:27 | XMS_ITS | Encounter Summary ---
Author Organization [facility] Address [facility] [place] [address] Care Team Providers Care Youth Coordinator Name Role Phone Richard Rasheed MD Primary Care Provider [phone] Reason for Visit * Reason Comments Family History sister with possible LCHAD deficiency * Consultation (Routine) - Closed Specialty Diagnoses / Procedures Referred By Contac t Referred To Contact Obstetrics and Gynecology Diagnoses History of delivery, currently Hypothyroidism, postsurgical GC (11/21-12/05) Walt Bay MD [facility] [place] [address] [facility] [address] [place] [address] Referral ID Status Reason Start Date Expiration Date V isits Requested Visits Authorized [id number] Closed Consult, Test & Treat 11/15/2023 11/14/2024 1 1 Encounter Details Date Type Department Care Team (Latest Contact Info) Description 11/23/2023 1:00 PM EDT TH Visit (TeleHealth) Obstetrics [place] [address] Félix Richardson, [facility] [place] [address] Encounter for procreative genetic counseling; [...] your doctor or pharmacy? Never 10/12/2023 [facility] Utilities Answer Date Recorded In the past 12 months has th e [employer] oil, or water [employer] threatened to shut off services in your [...] any time in the past [address] [facility], were you homeless or living in a [...] this encounter Progress Notes * Félix Richardson, [facility] - 11/23/2023 1:00 PM EDT Reproductive Genetics Andree Hummel is a 33 y.o. female currently at 11w1d gestation. I met with Andree for a 50-minute genetic counseling telephone visit (converted from video due to technical difficulties). She was located in [place] at the time of the visit. She was unaccompanied. 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 She then had numerous [...] screening, which includes 112 conditions with a sbovnhtv-vl-uhkmgd phenotype and a carrier frequency of >=1/200; this panel does not include LCHAD or TFP deficiency. Carrier screening for additional serious but less common conditions (Tier 4) is available to patients who want maximum information; the gene list varies by laboratory. We are currently offering [employer]'s Horizon 113 (Tier 3) and Horizon 609 [...] TFP deficiency. Orders Placed This Encounter Procedures [employer] CUSTOM Plan Horizon Custom Carrier Screen (609 conditions) Written consent obtained through [employer] and imported to chart. Epic order placed. [facility] to manage sample collection (saliva collection kit to be mailed to patient). Turnaround time for results is 2-3 weeks. Results will be communicated via [facility]. Partner Testing: Deferred documented in this encounter Plan of Treatment Upcoming Encounters Date Type Department Care Team (Late st Contact Info) Description 05/23/2024 Hospital [place] [address] Lexii Ceja MD [facility] DR [place] [address] Scheduled Orders Name Type Priority Associated Diagnoses [...] trimester documented in this encounter Care Teams Youth Coordinator Relationship Specialty Start Date End Date Richard Rasheed MD [address] [place] [address] PCP - General Family Medicine 07/05/23 documented as of this encounter
--- OUTSIDE RECORDS SUMMARY | 2024-03-15 15:27 | XMS_ITS | Encounter Summary ---
Author Organization [facility] [place] [address] Care Team Providers Care Furniture Inspector Name Role Phone Richard Rasheed MD Primary Care Provider [phone] Encounter Details Date Type Department Care Team (Latest Contact Info) Description 11/15/2023 4:05 PM EDT Laboratory Appointment Lab 3L [place] [address] History of delivery, currently ; [...] doctor or pharmacy? Never 10/12/2023 [facility] Utilities Answer Date Recorded In the past 12 months has [employer], oil, or water [employer] threatened to shut off services in your [...] Description 05/23/2024 Hospital Encounter [place] [address] [facility] [place] [address] documented as of this encounter Procedures Procedure Name Priority Date/Time Associated Diagnosis Comments PANORAMA SCREEN Routine 11/15/2023 4:10 PM EDT History of delivery, currently TSH CASCADE Routine 11/15/2023 4:10 PM EDT History of delivery, currently Hypothyroidism, postsurgical T4, FREE Routine 11/15/2023 4:10 PM EDT documented in this encounter Results * T4, free (11/15/2023 4:10 PM EDT) Free T4 0.96 0.93 - 1.70 ng/dL [facility] Comment: Reference Interval (ng/dL): Females: ??First Trimester: 0.97-1.68 ??Second Trimester: 0.77-1.51 ??Third Trimester: 0.77-1.49 Blood 11/15/2023 4:10 PM EDT 11/15/2023 4:30 PM EDT Narrative Resulting Agency Comment Spec In Lab E Jessica Bay MD CHEMISTRY ORDERAB LES Performing Organization Address City/State/[facility] Co de Phone Number [facility] [place] [address] * Panorama Screen (11/15/2023 4:10 PM EDT) Ramesh Report Summary LOW RISK [facility] Comment:LOW RISK Ramesh Report Note See Notes [facility] Trisomy 21 Result (ROM) Low Risk [facility] Trisomy 18 Result (ROM) Low Risk [facility] Trisomy 13 Result (ROM) Low Risk [facility] Monosomy X Result (ROM) Low Risk [facility] Triploidy Result (ROM) Low Risk [facility] Sex of Fetus Female [facility] Ramesh Footnotes See Notes [facility] Comment: Testing Methodology DNA isolated from [...] appropriate. Disclaimers This test was performed by [facility]. [address], [place] [address] (CLIA ID [id number]). The performance characteristics of this test were developed by [facility]. This test has not been cleared or approved by the U.S. Food and Drug Administration (FDA). This laboratory is regulated under CLIA as qualified to perform high-complexity testing. ??2020 [employer]. All Rights Reserved. Please refer to the attached PDF report Reviewed By: Isabel Ascencio M.D., Ph.D., [facility], Senior Studio Associate [facility] Fur Designer: Eric Weinberg, Ph.D., [facility] IF THE ORDERING PROVIDER HAS QUESTIONS OR WISHES TO DISCUSS THE RESULTS, PLEASE CONTACT US AT [phone] #[phone]. Ask for the NIPT genetic counselor transmission and protection engineer. Blood 11/15/2023 4:10 PM EDT 11/16/2023 7:47 AM EDT E Jessica Bay MD LAB SEND OUT VON [facility] Organization Address City/State/ZIP Co de Phone Number [facility] [place] [address] * (ABNORMAL) TSH [place] (11/15/2023 4:10 PM EDT) Thyroid Stimulating Hormone 35.00(H) 0.27 - 4.20 mcIU/mL [facility] Comment: Reference Interval (mcIU/mL): Females: ??First Trimester: 0.23-3.88 ??Second Trimester: 0.22-3.90 ??Third Trimester: 0.44-4.66 Blood 11/15/2023 4:10 PM EDT 11/15/2023 4:24 PM EDT Narrative Resulting Agency Comment Spec In Lab E Jessica Bay MD CHEMISTRY ORDERAB LES [facility] [place] [address] documented in this encounter Visit Diagnoses Diagnosis History of delivery, currently with history of pre-term labor Hypothyroidism, postsurgical Postsurgical hypothyroidism documented in this encounter Care Teams Furniture Inspector Relationship Specialty Start Date End Date Richard Rasheed MD [address] [place] [address] PCP - General Family Medicine 07/05/23 documented as of this encounter
--- OUTSIDE RECORDS SUMMARY | 2024-03-15 15:27 | XMS_ITS | Encounter Summary ---
Author Organization [facility] Address [facility] [place] [address] Care Team Providers Care Refrigeration Operator Name Role Phone Richard Rasheed MD Primary Care Provider Encounter Details Date Type Department Care Team (Late st Contact Info) Description 11/20/2023 Telephone Obstetrics [place] [address] Jody Wood RN Social History [...] from your doctor or pharmacy? Never 10/12/2023 [facility] Utilities Answer Date Recorded In the past 12 months has [facility], [employer], oil, or water [employer] threatened to shut off services in your [...] her I would forward this to the [facility] on-call for further recommendations. documented in this encounter Plan of Treatment Upcoming Encounters Date Type Department Care Team (Late st Contact Info) Description 05/23/2024 [place] [address] Lexii Ceja MD [facility] DR OBSTETRICS [place] [address] documented as of this encounter Visit Diagnoses Not on filedocumented in this encounter Care Teams Refrigeration Operator Relationship Specialty Start Date End Date Richard Rasheed MD [address] [place] [address] PCP - General Family Medicine 07/05/23 documented as of this encounter
--- OUTSIDE RECORDS SUMMARY | 2024-03-15 15:27 | XMS_ITS | Encounter Summary ---
Author Organization [facility] Address [facility] [place] [address] Care Team Providers Care Generator Man Name Role Phone Richard Rasheed MD Primary Care Provider [phone] Encounter Details Date Type Department Care Team [...] from your doctor or pharmacy? Never 10/12/2023 [facility] Utilities Answer Date Recorded In the past 12 months has e [employer], gas, oil, or water [employer] threatened to shut off services in your [...] Info) Description 05/23/2024 Hospital [place] [address] Lexii Ceja MD [facility] OBSTETRICS [place] [address] documented as of this encounter Visit Diagnoses Not on filedocumented in this encounter Care Teams Generator Man Relationship Specialty Start Date End Date Richard Rasheed MD [address] [place] [address] PCP - General Family Medicine 07/05/23 documented as of this encounter
--- OUTSIDE RECORDS SUMMARY | 2024-03-15 15:27 | XMS_ITS | Encounter Summary ---
Author Organization [facility] [place] [address] Care Team Providers Care Teletypist Name Role Phone Richard Rasheed MD Primary Care Provider Encounter Details Date Type Department Care Team (Latest Contact Info) Description 12/27/2023 3:55 PM EDT Laboratory Appointment Lab 3L [place] [address] care in first trimester; Hypothyroidism, [...] doctor or pharmacy? Never 10/12/2023 [facility] Utilities Answer Date Recorded In the past 12 months has [facility] [employer], oil, or water [employer] threatened to shut off services in your [...] Info) Description 05/23/2024 Hospital Encounter [place] [address] Lexii Ceja MD [facility] OBSTETRICS [place] [address] documented as of this encounter Procedures Procedure Name Priority Date/Time Associated Diagnosis Comments TSH CASCADE Routine 12/27/2023 2:54 PM EDT Hypothyroidism, postsurgical T4, FREE Routine 12/27/2023 2:54 PM EDT Hypothyroidism, postsurgical documented in this encounter Results * (ABNORMAL) T4, free (12/27/2023 2:54 PM EDT) Free T4 0.51(L) 0.93 - 1.70 ng/dL 12/27/2023 4:53 PM EDT [facility] Comment: Reference Interval (ng/dL): ?? Females: ? First Trimester: 0.97-1.68 ? Second Trimester: 0.77-1.51 ? Third Trimester: 0.77-1.49 Blood VENOUS BLOOD SPECIMEN / Unknown Venipuncture / Unknown 12/27/2023 2:54 PM EDT 12/27/2023 2:54 PM EDT Maite Marks MD CHEMISTRY ORDERABLES Performing Organization Address [facility] Co de Phone Number [facility] [place] [address] * (ABNORMAL) TSH [place] (12/27/2023 2:54 PM EDT) Thyroid Stimulating Hormone 84.50(H) 0.27 - 4.20 mcIU/mL 12/27/2023 4:13 PM EDT [facility] Comment: Reference Interval (mcIU/mL): ?? Females: ? First Trimester: 0.23-3.88 ? Second Trimester: 0.22-3.90 ? Third Trimester: 0.44-4.66 Blood VENOUS BLOOD SPECIMEN / Unknown Venipuncture / Unknown 12/27/2023 2:54 PM EDT 12/27/2023 2:54 PM EDT Maite Marks [place] [address] documented in this encounter Visit Diagnoses Diagnosis care in first trimester Hypothyroidism, postsurgical Postsurgical hypothyroidism documented in this encounter Care Teams Teletypist Relationship Specialty Start Date End Date Richard Rasheed MD [address] [place] [address] PCP - General Family Medicine 07/05/23 documented as of this encounter
--- OUTSIDE RECORDS SUMMARY | 2024-03-15 15:27 | XMS_ITS | Encounter Summary ---
Author Organization [facility] Address [facility] [place] [address] Care Team Providers Care Loss Prevention/Safety District Manager Name Role Phone Richard Rasheed MD Primary Care Provider [phone] Reason for Referral * Consultation (Routine) - Closed Specialty Diagnoses / Procedures Referred By Contac t Referred To Contact Obstetrics and Gynecology Diagnoses History of delivery, currently Hypothyroidism, postsurgical GC (11/21-12/05) Walt Briseno MD [facility] DR OBSTETRICS [place] [address] [facility] [address] [place] [address] Referral ID Status Reason Start Date Expiration Date V isits Requested Visits Authorized [id number] Closed Consult, Test & Treat 11/15/2023 11/14/2024 1 1 Reason for Visit * Reason Comments Establish Care Encounter Details Date Type Department Care Team (Late st Contact Info) Description 11/15/2023 3:00 PM EDT Office Visit Obstetrics [place] [address] Walt Briseno MD [facility] OBSTETRICS [place] [address] History of delivery, currently ; Hypothyroidism, postsurgical [...] from your doctor or pharmacy? Never 10/12/2023 [facility] Utilities Answer Date Recorded In the past 12 months has th e [facility], oil, or water [employer] threatened to shut off services in your [...] in the past [address] [facility], were you homeless or living [...] for counseling regarding transfer of care to [facility] team. Plan to increase synthroid to [...] not received required previsit questionnaires, send via [facility] Other information or concerns: Called at [phone] documented in this encounter Plan of Treatment Upcoming Encounters Date Type Department Care Team (Late st Contact Info) Description 05/23/2024 [place] [address] Lexii Ceja MD [facility] OBSTETRICS [place] [address] Scheduled Orders Name Type Priority Associated Diagnoses [...] OB Detailed Morphology (02/07/2024 10:39 AM EDT) [employer] WORKSTATION ID [id number] [facility] Anatomical Region Laterality Modality Pelvis, Abdomen Ultrasound [...] who have questions, please contact the health daycare provider that requested your imaging first. ?Linda Diaz, Enrollment Processor Electronically Signed Corrected Final Report ??02/07/2024 01:35 pm Narrative 02/07/2024 10:53 AM EDT OBSTETRICS REPORT ? (Corrected Final 02/07/2024 01:35 pm) PATIENT INFO: ID #: ? [id number] ?: ??[birth year] (33 yrs)(F) Name: ? PREETHI Godoy ? Visit Date: 02/07/2024 10:23 am ? LOUISE- ? FRANK PERFORMED BY: Performed By: ? Aster Betancur RDMS Attending: ?Mathew LIMA, Lalita Diop Referred By: ?Walt BRISENO Location: ? [place] SERVICE(S) PROVIDED: [facility] - Detailed Morphology - [id number] ? 71768 [facility]OBTVCER - Transvaginal ??2nd Trimester - ?02460 Cervical Length - [id number] INDICATIONS: 21 weeks gestation of ?Z3A.21 h/o [...] SVC: ? Visualized Interventr. Septum: ?Visualized Cardiac Edison: ?Visualized Diaphragm: ? Visualized 3 Vessel View: [...] 02/07/2024 01:35 pm) PATIENT INFO: ID #: [id number] : [birth year] (33 yrs)(F) Name: PREETHI Godoy Visit Date: 02/07/2024 10:23 am MARIO MARIE PERFORMED BY: Performed By: Aster Betancur RDMS Attending: Lalita Carmona MD Referred By: Walt MOS[facility] Location: [place] SERVICE(S) PROVIDED: [facility] - Detailed Morphology - [id number] 59688 [facility]OB[facility]CER - Transvaginal 2nd Trimester - 45391 Cervical Length - [id number] INDICATIONS: 21 weeks gestation of Z3A.21 h/o [...] 06/10/24 Best: 21w 4d Det. By: U/S Bill R L ZAYDA: 06/15/24 (11/08/23) TARGETED ANATOMY: [...] Visualized SVC: Visualized Interventr. Septum: Visualized Cardiac Edison: Visualized Diaphragm: Visualized 3 Vessel View: Visualized [...] who have questions, please contact the health daycare provider that requested your imaging first. Linda Diaz, Enrollment Processor Electronically Signed Corrected Final Report 02/07/2024 01:35 pm E Melany Briseno MD IMG US OB ORDERAB LES * US OB Cervical Length Transvaginal (12/27/2023 1:31 PM EDT) [employer] WORKSTATION ID [id number] [facility] Anatomical Region Laterality Modality Pelvis, Abdomen Ultrasound [...] who have questions, please contact the health daycare provider that requested your imaging first. ? Linda Diaz, Enrollment Processor Electronically Signed Final Report ?? 12/27/2023 01:45 pm Narrative 12/27/2023 1:45 PM EDT OBSTETRICS REPORT ?(Signed Final 12/27/2023 01:45 pm) PATIENT INFO: ID #: ? [id number] ?: ??[birth year] (33 yrs)(F) Name: ? PREETHI Godoy ? Visit Date: 12/27/2023 01:34 pm ? LOUISE- ? FRANK PERFORMED BY: Performed By: ? Car Can RDMS Attending: ?Emily LIMA, Linda Figueroa Referred By: ?[facility] Location: ? [place] SERVICE(S) PROVIDED: [facility] - Transvaginal ??2nd Trimester - ?27265 Cervical Length - [id number] INDICATIONS: 16 weeks gestation of ?Z3A.16 h/o [...] 12/27/2023 01:45 pm) PATIENT INFO: ID #: [id number] : [birth year] (33 yrs)(F) Name: PREETHI Godoy Visit Date: 12/27/2023 01:34 pm MARIO MARIE PERFORMED BY: Performed By: Car Can RDMS Attending: Linda Diaz MD Referred By: Walt BRISENO Location: [place] SERVICE(S) PROVIDED: [facility] - Transvaginal 2nd Trimester - 05999 Cervical Length - [id number] INDICATIONS: 16 weeks gestation of Z3A.16 h/o [...] who have questions, please contact the health daycare provider that requested your imaging first. Linda Diaz, Enrollment Processor Electronically Signed Final Report 12/27/2023 01:45 pm E Melany Brsieno MD IM US OB ORDERAB LES * (ABNORMAL) [facility] [place] (11/15/2023 4:10 PM EDT) Thyroid Stimulating Hormone 35.00(H) 0.27 - 4.20 mcIU/mL [facility] Comment: Reference Interval (mcIU/mL): Females: ??First Trimester: 0.23-3.88 ??Second Trimester: 0.22-3.90 ??Third Trimester: 0.44-4.66 Blood 11/15/2023 4:10 PM EDT 11/15/2023 4:24 PM EDT Narrative Resulting Agency Comment Spec In Lab E Melany Briseno MD CHEMISTRY ORDERAB LES [facility] [place] [place] [address] * Panorama Screen (11/15/2023 4:10 PM EDT) Ramesh Report Summary LOW RISK [facility] Comment:LOW RISK Ramesh Report Note See Notes [facility] Trisomy 21 Result (ROM) Low Risk [facility] Trisomy 18 Result (ROM) Low Risk [facility] Trisomy 13 Result (ROM) Low Risk [facility] Monosomy X Result (ROM) Low Risk [facility] Triploidy Result (ROM) Low Risk [facility] Sex of Fetus Female [facility] Ramesh Footnotes See Notes [facility] Comment: Testing Methodology DNA [...] appropriate. Disclaimers This test was performed by [facility] [address], [place] [address] (CLIA ID [id number]). The performance characteristics of this test were developed by [facility] This test has not been cleared or approved by the U.S. Food and Drug Administration (FDA). This laboratory is regulated under CLIA as qualified to perform high-complexity testing. ??2020 [facility] All Rights Reserved. Please refer to the attached PDF report Reviewed By: Isabel Ascencio M.D., Ph.D., [facility], Senior Residential Insurance Inspector [facility] Blasting Helper: Eric Weinberg, Ph.D., [facility] IF THE ORDERING PROVIDER HAS QUESTIONS OR WISHES TO DISCUSS THE RESULTS, PLEASE CONTACT US AT [phone] #[phone]. Ask for the NIPT genetic counselor hot wound spring production supervisor. Blood 11/15/2023 4:10 PM EDT 11/16/2023 7:47 AM EDT E Melany Briseno MD LAB SEND OUT [facility] Organization Address City/State/ZIP Co de Phone Number [facility] [place] [phone] documented in this encounter Visit Diagnoses Diagnosis History of delivery, currently with history of pre-term labor Hypothyroidism, postsurgical Postsurgical hypothyroidism History of delivery, currently with history of pre-term labor History of delivery, currently with history of pre-term labor documented in this encounter Care Teams Loss Prevention/Safety District Manager Relationship Specialty Start Date End Date Richard Rasheed MD [address] [place] [address] PCP - General Family Medicine 07/05/23 documented as of this encounter
--- OUTSIDE RECORDS SUMMARY | 2024-03-15 15:28 | XMS_ITS | Encounter Summary ---
Author Organization [facility] Address [facility] [place] [address] Care Team Providers Care Network Account Manager Name Role Phone Valencia Adhikari APRN Primary Care Provider [phone] Encounter Details Date Type Department Care Team (Latest Contact Info) Description 04/25/2021 3:00 PM EST TH Visit (TeleHealth) Psychiatry [place] [address] Lisa Dickens, PhD [facility] [place] [address] Borderline personality disorder Social History Tobacco Use [...] EST INDIVIDUAL THERAPY PROGRESS NOTE CPT CODE 90687 LOCATION: Telephone office visit. Andree Artislliams gave permission for and was seen for today's appointment with a Telephone office visit. During this visit she was located in her apartment in [place], [place]. Andree HidalgoDoriems is aware that for any urgent matter she can can contact her regional mental health crisis services. For patients located in [place]: [email or web address] or text/call . For patients located in [place]: [email or web address]/services/emergency-[email or web address]. To reach their [facility] mental health clinician or the outpatient Department of Psychiatry clinics, patient can call [phone]. SESSION DURATION: 40 minutes ATTENDEES: Patient PRIMARY [...] Contact Info) Description 05/23/2024 [place] [address] Lexii Ceja MD [facility] DR OBSTETRICS [place] [address] documented as of this encounter Visit Diagnoses Diagnosis Borderline personality disorder documented in this encounter Care Teams Network Account Manager Relationship Specialty Start Date End Date Valencia Adhikari APRN [address] [place] [address] PCP - General 04/21/14 07/04/23 documented as of this encounter
--- OUTSIDE RECORDS SUMMARY | 2024-03-15 15:28 | XMS_ITS | Encounter Summary ---
Author Organization [facility] Address [facility] [place] [address] Care Team Providers Care Project Manager Retail Name Role Phone Valencia Adhikari APRN Primary Care Provider [phone] Encounter Details Date Type Department Care Team (Latest Contact Info) Description 09/01/2021 11:00 AM EDT TH Visit (TeleHealth) Psychiatry [place] [phone] Lisa Dickens, PhD [facility] [place] [address] Borderline personality disorder; Unspecified mood (affective) disorder [...] EDT INDIVIDUAL THERAPY PROGRESS NOTE CPT CODE 83863 LOCATION: Telehealth visit. Andree SinghTamara gave permission for and was seen for today's appointment with a Telehealth visit. During this visit she was located in her apartment in [place], [place]. Andree Hummel is aware that for any urgent matter she can can contact her regional mental health crisis services. For patients located in [place]: www.[email or web address] or text/call . Forpatients located in [place]: [email or web address]. To reach their [facility] mental health clinician or the outpatient Department of Psychiatry clinics,patient can call [phone]. SESSION DURATION: 20 minutes ATTENDEES: Patient PRIMARY COMPLAINT/DIAGNOSIS: Borderline Personality Disorder; Unspecified Mood Disorder; R/O PTSD TREATMENT MODALITY: DBT PATIENT REPORT OF CURRENT FUNCTIONING/CHANGES: Patient reported: -doing better, the sun helps, gardening with son -work has been a joke--they cut her hours and haven't given them back, having to use sick time and PTO to fill in paycheck -trip to [place] at end of September, feels weird about it all, hasn't seen this extended family in 15 years -can't afford the gas to go to the [facility], had to cancel appointment scheduled for tomorrow -having problems with landlord -going over to closest friends today, then going on a date CENTRAL THEME OF SESSION: coping skills IN-SESSION PROCEDURES: I provided empathic listening and validation. I encouraged patient to contact [facility] and explain that she cannot [...] Contact Info) Description 05/23/2024 [place] [address] Lexii Ceja MD [facility] DR OBSTETRICS [place] [address] documented as of this encounter Visit Diagnoses Diagnosis Borderline personality disorder Unspecified mood (affective) disorder documented in this encounter Care Teams Project Manager Retail Relationship Specialty Start Date End Date Valencia Adhikari APRN [address] [place] [address] PCP - General 04/21/14 07/04/23 documented as of this encounter
--- OUTSIDE RECORDS SUMMARY | 2024-03-15 15:28 | XMS_ITS | Encounter Summary ---
Author Organization [facility] Address [facility] [place] [address] Care Team Providers Care Foundry Patternmaker Name Role Phone Valencia Adhikari APRN Primary Care Provider [phone] Encounter Details Date Type Department Care Team (Latest Contact Info) Description 05/02/2021 3:00 PM EST TH Visit (TeleHealth) Psychiatry [place] [phone] Lisa Dickens, PhD [facility] [place] [address] Borderline personality disorder; Unspecified mood (affective) disorder [...] EST INDIVIDUAL THERAPY PROGRESS NOTE CPT CODE 85246 LOCATION: Telephone office visit. Andree Artislliams gave permission for and was seen for today's appointment with a Telephone office visit. During this visit she was located in her apartment in [place], [place]. Toshaaaron Hummel is aware that for any urgent matter she can can contact her regional mental health crisis services. For patients located in [place]: www.[email or web address] or text/call . For patients located in [place]: [email or web address]. To reach their [facility] mental health clinician or the outpatient Department of Psychiatry clinics, patient can call [phone]. SESSION DURATION: 30 minutes ATTENDEES: Patient PRIMARY [...] Contact Info) Description 05/23/2024 [place] [address] Lexii Ceja MD [facility] [place] [address] documented as of this encounter Visit Diagnoses Diagnosis Borderline personality disorder Unspecified mood (affective) disorder documented in this encounter Care Teams Foundry Patternmaker Relationship Specialty Start Date End Date Valencia Adhikari APRN [address] [place] [address] PCP - General 04/21/14 07/04/23 documented as of this encounter
--- OUTSIDE RECORDS SUMMARY | 2024-03-15 15:28 | XMS_ITS | Encounter Summary ---
Author Organization [facility] [place] [address] Care Team Providers Care Hand Tacker Name Role Phone Valencia Adhikari APRN Primary Care Provider [phone] Encounter Details Date Type Department Care Team (Late st Contact Info) Description 04/13/2023 Orders Only Obstetrics [place] [address] Jody Wood RN Vaginal bleeding in , [...] Contact Info) Description 05/23/2024 [place] [address] Lexii Ceja MD [facility] OBSTETRICS AND GYNECOLOGY [place], [place] [phone] documented as of this encounter Visit Diagnoses Diagnosis Vaginal bleeding in , first trimester documented in this encounter Care Teams Hand Tacker Relationship Specialty Start Date End Date Valencia Adhikari APRN [address] [place] [address] PCP - General 04/21/14 07/04/23 documented as of this encounter
--- OUTSIDE RECORDS SUMMARY | 2024-03-15 15:28 | XMS_ITS | Encounter Summary ---
Author Organization [facility] Address [facility] [place] [address] Care Team Providers Care Palliative Medicine Physician Name Role Phone Valencia Adhikari APRN Primary Care Provider [phone] Encounter Details Date Type Department Care Team (Latest Contact Info) Description 08/18/2021 11:00 AM EDT TH Visit (TeleHealth) Psychiatry [place] [phone] Lisa Dickens, PhD [facility] [place] [address] Unspecified mood (affective) disorder; Borderline personality disorder [...] EDT INDIVIDUAL THERAPY PROGRESS NOTE CPT CODE 19656 LOCATION: Telehealth visit. Andree SinghTamara gave permission for and was seen for today's appointment with a Telehealth visit. During this visit she was located in her apartment in [place], [place]. Andree Hummel is aware that for any urgent matter she can can contact her regional mental health crisis services. For patients located in [place]: www.Blackwave or text/call . Forpatients located in [place]: [email or web address].[facility]/services/emergency-services/yep-azc-gqgz. To reach their [facility] mental health clinician or the outpatient Department of Psychiatry clinics,patient can call [phone]. SESSION DURATION: 40 minutes ATTENDEES: Patient PRIMARY COMPLAINT/DIAGNOSIS: Borderline Personality Disorder; Unspecified Mood Disorder; R/O PTSD TREATMENT MODALITY: DBT PATIENT REPORT OF CURRENT FUNCTIONING/CHANGES: Patient reported: -has an appt at [facility], friend Caroline is going with her, [...] Info) Description 05/23/2024 Hospital [place] [address] Lexii Ceja MD [facility] [address] [place] [address] documented as of this encounter Visit Diagnoses Diagnosis Unspecified mood (affective) disorder Borderline personality disorder documented in this encounter Care Teams Palliative Medicine Physician Relationship Specialty Start Date End Date Valencia Adhikari APRN [address] [place] [address] PCP - General 04/21/14 07/04/23 documented as of this encounter
--- OUTSIDE RECORDS SUMMARY | 2024-03-15 15:28 | XMS_ITS | Encounter Summary ---
Author Organization [facility] Address [facility] [place] [address] Care Team Providers Care Optical Scientist Name Role Phone Richard Rasheed MD Primary Care Provider Encounter Details Date Type Department Care Team (Late st Contact Info) Description 08/15/2023 Telephone Obstetrics [place] [address] Sarah Tejeda Social History Tobacco [...] Contact Info) Description 05/23/2024 [place] [phone] Lexii Ceja MD [facility] DR OBSTETRICS [place] [address] documented as of this encounter Visit Diagnoses Not on filedocumented in this encounter Care Teams Optical Scientist Relationship Specialty Start Date End Date Richard Rasheed MD [address] [place] [address] PCP - General Family Medicine 07/05/23 documented as of this encounter
--- OUTSIDE RECORDS SUMMARY | 2024-03-15 15:28 | XMS_ITS | Encounter Summary ---
Author Organization [facility] Address [facility] [place] [address] Care Team Providers Care Sample Sewer Name Role Phone Valencia Adhikari APRN Primary Care Provider [phone] Encounter Details Date Type Department Care Team (Latest Contact Info) Description 05/16/2021 3:00 PM EST TH Visit (TeleHealth) Psychiatry [place] [phone] Lisa Dickens, PhD [facility] [place] [address] Unspecified mood (affective) disorder; Borderline personality disorder [...] EST INDIVIDUAL THERAPY PROGRESS NOTE CPT CODE 11427 LOCATION: Telehealth visit. Andree Artislliams gave permission for and was seen for today's appointment with a Telehealth visit. During this visit she was located in her apartment in [place], [place]. Andree Hummel is aware that for any urgent matter she can can contact her regional mental health crisis services. For patients located in [place]: www.[employer]endorStack or text/call . Forpatients located in [place]: [email or web address]. To reach their [facility] mental health clinician or the outpatient Department of Psychiatry clinics,patient can call [phone]. SESSION DURATION: 40 minutes ATTENDEES: Patient PRIMARY [...] Description 05/23/2024 [place] [address] Lexii Ceja MD [facility] [place] [address] documented as of this encounter Visit Diagnoses Diagnosis Unspecified mood (affective) disorder Borderline personality disorder documented in this encounter Care Teams Sample Sewer Relationship Specialty Start Date End Date Valencia Adhikari APRN [address] [place] [address] PCP - General 04/21/14 07/04/23 documented as of this encounter
--- OUTSIDE RECORDS SUMMARY | 2024-03-15 15:28 | XMS_ITS | Encounter Summary ---
[facility] [place] [address] Care Team Providers Care Marketing Intelligence Analyst Name Role Phone Valencia Adhikari APRN Primary Care Provider +1 [phone] Encounter Details Date Type Department Care Team (Latest Contact Info) Description 08/18/2021 9:18 PM EDT - 08/18/2021 11:59 PM EDT Hospital [place] [phone] Substance use disorder Discharge Disposition: Home Social [...] Contact Info) Description 05/23/2024 Hospital Encounter [place] [address] Lexii Ceja MD [facility] [address] [place] [address] documented as of this encounter Procedures Procedure Name Priority Date/Time Associated Diagnosis Comments OPIOIDS CONFIRMATION PANEL, URINE ([place]) Routine 08/18/2021 1:30 PM EDT Substance use disorder RAPID DRUG SCREEN, COMPLIANCE MONITORING Routine 08/18/2021 1:30 PM EDT Substance use disorder HC URINE DRUG SCREEN BY INSTRUMENT Routine 08/18/2021 1:30 PM EDT Substance use disorder ALCOHOL BIOMARKERS CONFIRMATION Routine 08/18/2021 1:30 PM EDT [facility] ALCOHOL BIOMARKERS, URINE Routine 08/18/2021 1:30 PM EDT Substance use disorder THC (MARIJUANA), URINE, CONFIRMATION Routine 08/18/2021 1:30 PM EDT documented in this encounter Results * Alcohol Biomarkers Confirmation (08/18/2021 1:30 PM EDT) Ethyl Glucuronide ( Cutoff: 250 ng/mL [facility] Comment: Test Performed by: [facility] [place] [address] Instrument Fitter: Griffin Gustafson M.D. Ph.D.; CLIA# [id number] Ethyl Sulfate (AUGUST) 243 Cutoff: 100 ng/mL [facility] Comment: Test Performed by: [facility] [place] [address] Instrument Fitter: Griffin Gustafson M.D. Ph.D.; CLIA# [id number] Ethyl Gluc/Sulfate Interpretation (AUGUST) SEE COMMENTS [facility] Comment: Positive. A positive [...] developed and its performance characteristics determined by [facility] in a manner consistent with CLIA requirements. This test has not been cleared or approved by the U.S. Food and Drug Administration. Test Performed by: [facility] [place] [address] Instrument Fitter: Griffin Gustafson M.D. Ph.D.; CLIA# [id number] Urine 08/18/2021 1:30 PM EDT 08/19/2021 8:36 AM EDT Narrative Resulting Agency Comment Spec In Lab Jose Angel Miller MD CHEMISTRY ORDERABLES Performing Organization Address [facility]/State/ZIP Co de Phone Number [facility] [place] [address] * THC (Marijuana), Urine Confirmation (08/18/2021 1:30 [...] developed and its performance characteristics ?determined by [facility] in a manner consistent with CLIA ?requirements. This test has not been cleared or approved by ?the U.S. Food and Drug Administration. ?Test Performed by: ?[facility] ?[address] [place] [address] ?Instrument Fitter: Griffin Gustafson M.D. Ph.D.; CLIA# [id number] [facility] Urine 08/18/2021 1:30 PM EDT 08/19/2021 8:36 AM EDT Narrative Resulting Agency Comment Spec In Lab Jose Angel Miller MD LAB SEND OUT ORDERAB LES Performing Organization Address [facility]/State/ZIP Co de Phone Number [facility] [place] [address] * Opioids Confirmation Panel, Urine (08/18/2021 1:30 PM EDT) Targeted Opioid Panel, Urine (MAY) Test ?Result ? Flag ??Unit ?? RefValue ------- Targeted Opioid Screen, U ??List prescribed opioids ? See medication list ? ---ADDITIONAL INFORMATION------- ?Accuracy and completeness of declared medications on ?reports solely dependent on information submitted by ?client. ??Codeine ? Not Detected ? ng/mL ??Cutoff: 25 ?Tylenol 3 ??Mvbekep-3-xedy-g lucuronide ?Not Detected ? ng/mL ??Cutoff: 100 ?Metabolite of codeine ??Morphine ?Not Detected ? ng/mL ??Cutoff: 25 ?Dana Salcedo, MS Contin; Also a minor metabolite (10%) of ?codeine and can be seen in low concentrations (<2,000 ?ng/mL) with poppy seed ingestion. ??Lfdelodr-9-tfxx- glucuronide ? Not Detected ? ng/mL ??Cutoff: 100 ?Metabolite of morphine ??6-monoacetylmorp brigette ?Not Detected ? ng/mL ??Cutoff: 25 ?Metabolite of heroin ??Hydrocodone ? Not Detected ? ng/mL ??Cutoff: 25 ?Lortab, [place], Vicodin; Also a very minor metabolite of [...] ?Numorphan, Opana; Also a metabolite of oxycodone. ??Piiftszirmj-8-vx ta-glucuronide ?Not Detected ? ng/mL ??Cutoff: 100 [...] ?Not Detected ? ng/mL ??Cutoff: 25 ?Narcan ??Lcjxirtn-8-tcwn- glucuronide ? Not Detected ? ng/mL ??Cutoff: [...] developed and its performance characteristics ?determined by [facility] in a manner consistent with CLIA ?requirements. This test has not been cleared or approved by ?the U.S. Food and Drug Administration. ?Test Performed by: ?[facility] ?[address] [place] [address] ?Instrument Fitter: Griffin Gustafson M.D. Ph.D.; CLIA# [id number] [facility] Urine 08/18/2021 1:30 PM EDT 08/19/2021 8:36 AM EDT Jose Angel Miller MD LAB SEND OUT ORDERAB LES [facility] [place] [address] * (ABNORMAL) Rapid Drug Screen, Compliance Monitoring (08/18/2021 1:30 PM EDT) Pathologist [facility] Barbiturates Screen, Urine None Detected None Detected [facility] Comment: The barbiturate screen [...] Benzodiazepines Screen, Urine None Detected None Detected [facility] Comment: The benzodiazepines screen [...] Cocaine Screen, Urine None Detected None Detected [facility] Comment: The cocaine metabolites screen detects benzoylecgonine (Cocaine Metabolite) at concentrations >150 ng/mL. A ? Presumptive Positive? result indicates that the screening result was positive but has not yet been confirmed by a highly-specific method. As with any screen, occasional false positive results from cross-reacting substances may occur. Not for Medico-Legal Purposes. Cannabinoid Screen, Urine Presumptive Pos(A) None Detected [facility] Comment: The marijuana metabolites screen detects the THC metabolite (49-ffm-4-carboxy-delta 9-THC) at concentrations >20 ng/mL. A ? Presumptive Positive? result indicates that the screening result was positive but has not yet been confirmed by a highly-specific method. As with any screen, occasional false positive results from cross-reacting substances may occur. Not for Medico-Legal Purposes. Tricyclics Screen, Urine None Detected None Detected [facility] Comment: The tricyclics screen [...] Ethanol Screen, Urine None Detected None Detected [facility] Comment:This urine ethanol a ssay detects ethanol at concentrations >/= 100 mg/L. Amphetamines Screen, Urine None Detected None Detected [facility] Comment: The amphetamine screen detects d-amphetamine and d-methamphetamine at concentrations >300 ng/mL. A ? Presumptive Positive? result indicates that the screening result was positive but has not yet been confirmed by a highly-specific method. As with any screen, occasional false positive results from cross-reacting substances may occur. Not for Medico-Legal Purposes. Adulterants Screen, Urine None Detected None Detected [facility] Comment: No adulteration or [...] Miller MD URINE ORDERABLES Performing Organization Address [facility] Co de Phone Number [facility] [place] [address] * (ABNORMAL) Alcohol Biomarkers (08/18/2021 1:30 PM EDT) Ethyl Glucuronide Screen (AUGUST) SEE COMMENT(A ) Cutoff: 500 ng/mL [facility] Comment: RESULT: Presumptive Positive Drug confirmation to follow. ??Presumptive Positive means that the screening method is positive, but the test needs to be run by a confirmatory method. ADDITIONAL INFORMATION This test was developed and its performance characteristics determined by [facility] in a manner consistent with CLIA requirements. This test has not been cleared or approved by the U.S. Food and Drug Administration. Test Performed by: [facility] [place] [address] Instrument Fitter: Griffin Gustafson M.D. Ph.D.; CLIA# [id number] Urine 08/18/2021 1:30 PM EDT 08/19/2021 8:36 AM EDT Narrative Resulting Agency Comment Spec In Lab Jose Angel Miller MD LAB SEND OUT ORDERAB LES Performing Organization Address City/[facility]/ZIP Co de Phone Number [facility] [place] [address] documented in this encounter Visit Diagnoses Diagnosis Substance use disorder documented in this encounter Care Teams Marketing Intelligence Analyst Relationship Specialty Start Date End Date Valencia Adhikari APRN [address] [place] [address] PCP - General 04/21/14 07/04/23 documented as of this encounter
--- OUTSIDE RECORDS SUMMARY | 2024-03-15 15:28 | XMS_ITS | Encounter Summary ---
Author Organization [facility] [place] [address] Care Team Providers Care Supervisor Doping Name Role Phone OnofreValencia pitts B[place] Primary Care Provider [phone] [phone] Encounter Details Date Type Department Care Team (Late st Contact Info) Description 07/14/2021 Telephone [place] [address] Maria Teresa Wheeler Social History [...] 3:12 PM EDT Lab orders faxed to [facility] at the request of KANDIS Hector. documented in this encounter Plan of Treatment Upcoming Encounters Date Type Department Care Team (Late st Contact Info) Description 05/23/2024 [place] [address] Lexii Ceja MD [facility] OBSTETRICS [place] [address] documented as of this encounter Visit Diagnoses Not on filedocumented in this encounter Care Teams Supervisor Doping Relationship Specialty Start Date End Date Valencia Adhikari APRN [address] [place] [address] PCP - General 04/21/14 07/04/23 documented as of this encounter
--- OUTSIDE RECORDS SUMMARY | 2024-03-15 15:28 | XMS_ITS | Encounter Summary ---
Author Organization [facility] Address [facility] [place] [address] Care Team Providers Care Post Exchange Manager Name Role Phone Valencia Adhikari APRN Primary Care Provider [phone] [phone] Reason for Visit * Consultation (Routine) - Closed Specialty Diagnoses / Procedures Referred By Lamont riggins Referred To Contact Gastroenterology Diagnoses Irregular bowel habits Irregular bowel habits Valencia Adhikari APRN [address] [place] [address] [facility] [address] [place] [address] Referral ID Status Reason Start Date Expiration Date V isits Requested Visits Authorized [id number] Closed Consult, Test & Treat 06/27/2021 06/27/2022 1 1 Encounter Details Date Type Department Care Team (Latest Contact Info) Description 07/14/2021 11:00 AM EDT TH Visit (TeleHealth) [place] [address] Margarita Hector APRN [facility] [place] [address] Vitamin D deficiency; Iron deficiency [...] Stool *Lab orders have been faxed to [facility]* Please call the GI department to schedule the investigations if you do not hear from us within 1-2 weeks: [phone]. Endoscopy Scheduling: please call [phone] to schedule the procedures we discussed during [...] Hector APRN Department of Gastroenterology and Hepatology [facility] Here is some information on the [...] disease, or Ulcerative colitis. Also if the transportation security screener sees any polyps, they will be removed [...] Maite Flores APRN + Margarita Hector APRN [facility] What are functional [...] what is the impact? 15-20% of general [place] population has IBS or FD or both 2nd most common cause for lost work days (after common cold) in [place] Estimated $30 billion dollar cost to [place] economy per year These disorders can have [...] with immediate onset of symptoms after infection); shelter symptoms are expected in most patients however [...] to you primary care provider and/or local transportation security screener and share this document. Treatment of functional [...] - this approach benefits most patients OTC (pphm-tfx-jgyuphk) medications can be used for ongoing bothersome symptoms as listed below Your provider (PCP or local Gastroenterology provider or [facility] Gastroenterology provider) may decide to use prescription [...] All-Bran psyllium buds, Metamucil, Konsyl, bulk psyllium ([employer] and [employer] stores) Specifically we recommend starting Metamucil or [...] but convincing medical evidence is still lacking Blgi-wwn-ifpxgxp supplements including probiotics are not typically evaluated [...] to decrease antibiotic-associated diarrhea and antibiotic-related infections Qpcw-zfr-Gxzzuvy Medications for Functional Gut Disorders Based on [...] a stool softener that is safe for shelter usage (no risk of dependency) andthe dosage [...] (GERD) Often a combination of anti-nausea medications (xjjy-wbj-dzrpgsf or prescription) works better thanhigh doses of [...] for misuse/misinterpretation of this information Patient Resources [place] [employer] https://www.gastro.org/practice-guidance/vw-hjgsszh-qsukxb/ topic/pfdyfusqj-lxupx-hshefzoq-ibs Badgut.org https://badgut.org/information-centre/z-z-qcfrnqgrv-topics/ibs/ AboutIBS.org https://www.aboutibs.org/ Uptodate.com https://www.uptodate.com/contents/hystpsmeu-ceayo-vgcjrjwp-tavnai-yyd-xhztuz documented in this encounter Progress Notes * [...] been inconsistent for past decade -recently saw claim specialist: low IgA when checking for celiac -celiac in uncle -sister and her have shi's -gluten free helped sister's symptoms -single mom: gluten free is challenging financially -irregular bowel movements: -diagnosed with IBS at 17: EGD/colonoscopy (polyps in colon?) BM: sometimes 5-6/day for a week, then normal daily [place]: variable consistency but usually 5-6 Endorses steatorrhea, [...] stressors with ex boyfriend and son 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 Nerves, Trunk Or Head ([id number]) (03/22/2011); Skipwith tooth extraction; Upper gastrointestinal endoscopy; Colonoscopy; and [...] anxiety, depression, s/p thyroidectomy. Pt reports previous EGD/[place] at [facility] in 2007 normal except for [...] to rule out Celiac/IBD/microscopic colitis. Labs to [facility], including gliadin antibodies. We discussed etiology and management for IBS-D vs celiac vs IBD: patient prefers non-pharmacologic management. Diagnostics: -EGD/colonoscopy MAC and biopsies -labs (including low IgA celiac testing): [facility], pt aware she may need to get some testing done at [facility] if not available at [facility] -consider referral to pastry mixer at follow up Therapeutics: -Begin Metamucil [...] LABS NEGATIVE ONLY -consider trial FODMAP diet/seeing pastry mixer after EGD/colo complete -can consider increasing [...] EGD/colo complete The patient was located in [place] at the time of their visit. TIME SPENT WITH PATIENT Time spent reviewing records prior to this encounter on day of appointment: 5 minutes Time spent during encounter with patient including counselin minutes Time spent documenting encounter after office visit: 10 minutes Margarita Hector APRN [facility] [place] [address] documented in this encounter Plan of Treatment Upcoming Encounters Date Type Department Care Team (Late st Contact Info) Description 05/23/2024 Hospital Encounter Birthing [place] [phone] Lexii Ceja MD [facility] [place] [address] documented as of this encounter Visit Diagnoses [...] pain documented in this encounter Care Teams Post Exchange Manager Relationship Specialty Start Date End Date Valencia Adhikari APRN [address] [place] [address] PCP - General 04/21/14 07/04/23 documented as of this encounter
--- OUTSIDE RECORDS SUMMARY | 2024-03-15 15:28 | XMS_ITS | Encounter Summary ---
Author Organization [facility] Address [facility] [place] [address] Care Team Providers Care Outside Upholsterer Name Role Phone Valencia Adhikari APRN Primary Care Provider [phone] Encounter Details Date Type Department Care Team (Latest Contact Info) Description 09/08/2021 11:00 AM EDT TH Visit (TeleHealth) Psychiatry [place] [address] Lisa Dickens, PhD [facility] [address] Unspecified mood (affective) disorder; Borderline personality disorder [...] EDT INDIVIDUAL THERAPY PROGRESS NOTE CPT CODE 41547 LOCATION: Telehealth visit. Andree SinghTamara gave permission for and was seen for today's appointment with a Telehealth visit. During this visit she was located in her apartment in [place], [place]. Andree Hummel is aware that for any urgent matter she can can contact her regional mental health crisis services. For patients located in [place]: www.[employer] or text/call . Forpatients located in [place]: [email or web address]/[email or web address]-rajk. To reach their [facility] mental health clinician or the outpatient Department of Psychiatry clinics,patient can call [phone]. SESSION DURATION: 25 minutes ATTENDEES: Patient PRIMARY [...] Contact Info) Description 05/23/2024 [place] [address] Lexii Ceja MD [facility] [address] [place] [address] documented as of this encounter Visit Diagnoses Diagnosis Unspecified mood (affective) disorder Borderline personality disorder documented in this encounter Care Teams Outside Upholsterer Relationship Specialty Start Date End Date Valencia Adhikari APRN [address] [place] [address] PCP - General 04/21/14 07/04/23 documented as of this encounter
--- OUTSIDE RECORDS SUMMARY | 2024-03-15 15:28 | XMS_ITS | Encounter Summary ---
Author Organization [facility] Address [facility] [place] [address] Care Team Providers Care Corporate Legal Assistant Name Role Phone Valencia Adhikari APRN Primary Care Provider [phone] [phone] Encounter Details Date Type Department Care Team (Latest Contact Info) Description 06/27/2021 3:00 PM EDT TH Visit (TeleHealth) Psychiatry [place] [phone] Lisa Dickens, PhD [facility] [place] [address] Unspecified mood (affective) disorder; Borderline personality disorder [...] EDT INDIVIDUAL THERAPY PROGRESS NOTE CPT CODE 59022 LOCATION: Telehealth visit. Andree SinghTamara gave permission for and was seen for today's appointment with a Telehealth visit. During this visit she was located in her apartment in [place], [place]. Andree Hummel is aware that for any urgent matter she can can contact her regional mental health crisis services. For patients located in [place]: www.[employer] or text/call . Forpatients located in [place]: [email or web address]/emergency-[email or web address]/ghn-[email or web address]-vhwq. To reach their [facility] mental health clinician or the outpatient Department of Psychiatry clinics,patient can call [phone]. SESSION DURATION: 30 minutes ATTENDEES: Patient PRIMARY [...] Contact Info) Description 05/23/2024 [place] [address] Lexii Ceja MD [facility] OBSTETRICS [place] [address] documented as of this encounter Visit Diagnoses Diagnosis Unspecified mood (affective) disorder Borderline personality disorder documented in this encounter Care Teams Corporate Legal Assistant Relationship Specialty Start Date End Date Valencia Adhikari APRN [address] [place] [address] PCP - General 04/21/14 07/04/23 documented as of this encounter
--- OUTSIDE RECORDS SUMMARY | 2024-03-15 15:28 | XMS_ITS | Encounter Summary ---
Author Organization [facility] Address [facility] [place] [address] Care Team Providers Care Employer Relations Representative Name Role Phone Valencia Adhikari APRN Primary Care Provider [phone] [phone] Encounter Details Date Type Department Care Team (Latest Contact Info) Description 08/04/2021 11:00 AM EDT TH Visit (TeleHealth) Psychiatry [place] [address] Lisa Dickens, PhD [facility] [place] [address] Unspecified mood (affective) disorder; Borderline personality disorder [...] EDT INDIVIDUAL THERAPY PROGRESS NOTE CPT CODE 03481 LOCATION: Telehealth visit. Andree SinghTamara gave permission for and was seen for today's appointment with a Telehealth visit. During this visit she was located in her apartment in [place], [place]. Andree Hummel is aware that for any urgent matter she can can contact her regional mental health crisis services. For patients located in [place]: www.[employer] or text/call . Forpatients located in [place]: [email or web address]/[email or web address]-[email or web address]. To reach their [facility] mental health clinician or the outpatient Department of Psychiatry clinics,patient can call [phone]. SESSION DURATION: 40 minutes ATTENDEES: Patient PRIMARY COMPLAINT/DIAGNOSIS: Borderline Personality Disorder; Unspecified Mood Disorder; R/O PTSD TREATMENT MODALITY: DBT PATIENT REPORT OF CURRENT FUNCTIONING/CHANGES: Patient reported: -woke up today and has been crying all day, doesn't know why and doesn't like it -under immense stress, car is in shop and can't go to appt at [facility], hasn't been able to call a order taker yet due to fears about how much [...] Info) Description 05/23/2024 Hospital [place] [address] Lexii Ceja MD [facility] OBSTETRICS [place] [address] documented as of this encounter Visit Diagnoses Diagnosis Unspecified mood (affective) disorder Borderline personality disorder documented in this encounter Care Teams Employer Relations Representative Relationship Specialty Start Date End Date Valencia Adhikari APRN [address] [place] [address] PCP - General 04/21/14 07/04/23 documented as of this encounter
--- OUTSIDE RECORDS SUMMARY | 2024-03-15 15:28 | XMS_ITS | Encounter Summary ---
[place] [address] Care Team Providers Care Meat Scrubber Name Role Phone Valencia Adhikari APRN Primary Care Provider +1 [phone] Encounter Details Date Type Department Care Team (Late st Contact Info) Description 07/14/2021 Telephone [place] [address] Snehal Madsen CCMA Social History Tobacco Use [...] Contact Info) Description 05/23/2024 [place] [address] Lexii Ceja MD [facility] OBSTETRICS [place] [address] documented as of this encounter Visit Diagnoses Not on filedocumented in this encounter Care Teams Meat Scrubber Relationship Specialty Start Date End Date Valencia Adhikari APRN [address] [place] [address] PCP - General 04/21/14 07/04/23 documented as of this encounter
--- OUTSIDE RECORDS SUMMARY | 2024-03-15 15:28 | XMS_ITS | Encounter Summary ---
Author Organization [facility] Address [facility] [place] [address] Care Team Providers Care Casino Floor Runner Name Role Phone Richard Rasheed MD Primary Care Provider [phone] Encounter Details Date Type Department Care Team (Late st Contact Info) Description 10/12/2023 10:20 AM EDT Initial Obstetrics [place] [address] Tye Gamble MD [facility] DR OBSTETRICS & [place] [address] GA: 4w5d Social History Tobacco Use Types [...] has e electric, gas, oil, or water [employer] threatened to shut off services in your [...] any time in the past 12 m [facility], were you homeless or living in [...] Result date Tests and Procedures Follow-ups 08/04/2020 (Order#[id number]) Chain Testing Machine Operator Cytology Final Report *Pap Smear: NILM SINKER WINDER CYTOLOGY FINAL REPORT: View Details in Report [...] MONITORING, SETUP performed by JUAN ESPARZA at [facility] MAIN OR PRO THYROIDECTOMY, NYDIA, [facility] NECK SURG 03/22/2011 THYROIDECTOMY, FOR MALIGNANCY, LIMITED NECK DISSECTION performed by JUAN ESPARZA at [facility] MAIN OR TONSILLECTOMY 2010 UPPER GASTROINTESTINAL [...] a external lab requisition was sent to [facility]. Will add to beta list given bleeding present a few days ago (now resolved). Plan to schedule ultrasound in approximately 1-2 weeks pending beta hcg trend. Bleeding and ectopic precautions reviewed - she is aware to present more emergently to care with increased vaginal bleeding or abdominal pain. This has been complicated by: History of delivery @31w ([facility] 2013), @20w (at home). Consider cervical [...] Contact Info) Description 05/23/2024 [place] [address] Lexii Ceja MD [facility] OBSTETRICS [place] [address] documented as of this encounter Procedures Procedure [...] multiple bacterial species suggesting mucosal contamination. (A) [facility] Clean Catch Urine 10/12/2023 10:20 AM EDT 10/12/2023 11:53 AM EDT Narrative Resulting Agency Comment Spec In Lab Paul Mendez MD MICROBIOLOGY - GENE RAL ORDERABLES Performing Organization Address [facility]/ZIP Co de Phone Number [facility] [place] [address] * GC/Chlamydia Vaginal (10/12/2023 10:20 AM EDT) Pathologist [facility] GC Gene Amp Negative Negative [facility] Comment: Eye specimens are not an FDA-cleared source for this testing. The performance of this assay with eye specimens has been validated in-house. GC Source Vaginal [facility] Chlamydia Gene Amp Negative Negative [facility] Comment: Eye specimens are not an FDA-cleared source for this testing. The performance of this assay with eye specimens has been validated in-house. Chlm Source Vaginal [facility] Vaginal 10/12/2023 10:2 0 AM EDT 10/12/2023 11:54 AM EDT Narrative Resulting Agency Comment Spec In Lab Paul Mendez MD MICROBIOLOGY - GENE RAL ORDERABLES Performing Organization Address City/[facility]/ZIP Co de Phone Number [facility] [place] [address] * POCT urine (10/12/2023) POC Urine HCG [...] disorder documented in this encounter Care Teams Casino Floor Runner Relationship Specialty Start Date End Date Richard Rasheed MD [address] [place] [address] PCP - General Family Medicine 07/05/23 documented as of this encounter
--- OUTSIDE RECORDS SUMMARY | 2024-03-15 15:28 | XMS_ITS | Encounter Summary ---
Author Organization [facility] Address [facility] [place] [address] Care Team Providers Care Audit Partner Name Role Phone Valencia Adhikari APRN Primary Care Provider [phone] Encounter Details Date Type Department Care Team (Latest Contact Info) Description 06/14/2020 10:30 AM EST TH Visit (TeleHealth) Psychiatry [place] [phone] Crispin Fuller MD [facility] [place] [address] Unspecified mood (affective) disorder Social History Tobacco [...] Attendee(s): Patient This patient was seen with survey workers supervisor Dr. Awad. See their note for confirmatory and/or revisionarydocumentation. Andree Hummel gave permission for and was seen for today's appointment with a Telehealth visit. During this visit they were located in [place]. Andree Hummel is aware that for any urgent matter they can call [phone]. Chief Complaint: a lot has been going [...] cats and a dog. 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 Vitals (24hr Range): No data found. Musculoskeletal System: normal gait and balance, ambulates independently and no atrophy Mental Status Exam: ?? Appearance: age appropriate and casually dressed, pink hair ?? Behavior: cooperative with the interview and calm ?? Speech: normal pitch, normal volume, normal rate and normal rhythm ?? Language: fluent in qatari ?? Mood: better ?? Affect: constricted ?? [...] PHYSICIAN INVOLVEMENT Location: [facility], [address] Attending Physician: Jessica Awad MD Resident [...] Info) Description 05/23/2024 Hospital Encounter Birthing [facility] [place] [address] Lexii Ceja MD [facility] DR OBST[place] [address] documented as of this encounter Visit Diagnoses Diagnosis Unspecified mood (affective) disorder documented in this encounter Care Teams Audit Partner Relationship Specialty Start Date End Date Valencia Adhikari APRN [address] [place] [address] PCP - General 04/21/14 07/04/23 documented as of this encounter
--- OUTSIDE RECORDS SUMMARY | 2024-03-15 15:28 | XMS_ITS | Encounter Summary ---
Author Organization [facility] Address [facility] [place] [address] Care Team Providers Care Servicenow Administrator Name Role Phone Valencia Adhikari APRN Primary Care Provider [phone] Reason for Visit * Consultation (Routine) - Closed Specialty Diagnoses / Procedures Referred By Lamont riggins Referred To Contact Endocrinology Diagnoses Thyroiditis, unspecified Valencia Adhikari APRN [address] [place] [address] [facility] Endocrinology [address] [place] [phone] Referral ID Status Reason Start Date Expiration Date V isits Requested Visits Authorized [id number] Closed Consult, Test & Treat [facility] PCP Updated and/or Approved 01/17/2021 01/17/2022 12 12 Encounter Details Date Type Department Care Team (Latest Contact Info) Description 04/26/2021 11:00 AM EST TH Visit (TeleHealth) [place] [address] Shelli Kearns MD [facility] [place] [address] Obinna's thyroiditis; Hypothyroidism, postsurgical; Vitamin D insufficiency; [...] lesions: The specimen is serially sectioned and [facility] Provider: JUAN ESPARZA Pt. Name: ALONSO [place] Acc #: [id number] Pt. Col Date: 03/22/2011 /Sex: 1990,(20 years),Female Rec Date: 03/22/2011 LOC: [facility] SUR[facility] PATHOLOGY demonstrates diffuse, tam-yellow, nodular proliferations in both lobes and isthmus. Contour/Capsule: The capsule of the thyroid appears to abut these nodules and is somewhat distortedby them. Sections/Processing: (1-20) serial sections of right lobe from superior to inferior; (21-40) left lobe from superior to inferior including enlarged parathyroid; (41-44) administrative representative sections of isthmus; (45-50) serial sections [...] from outside and recheck lab soon at [facility] lab. If TSH remains high, [...] Lab: check lab today or soon at [facility] for TSH, FT4, 25vitD, B12, iron/TIBC. Orders [...] ?The specimen is serially sectioned and ? [facility] ? Provider: ?? JUAN ESPARZA Pt. Name: ?? ALONSO HUMMEL ? E ? Acc #: ?[id number] ?Pt. ? Col Date: ?? 03/22/2011 ? [...] from outside and recheck lab soon at [facility] lab. She feels tired all the time [...] Not on file Occupational History ??? 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 Smoking status: Current Every [...] from outside and recheck lab soon at [facility] lab. If TSH remains high, [...] Lab: check lab today or soon at [facility] for TSH, FT4, 25vitD, B12, iron/TIBC. 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
--- OUTSIDE RECORDS SUMMARY | 2024-03-15 15:28 | XMS_ITS | Encounter Summary ---
[place] [address] Care Team Providers Care Resort Housekeeper Name Role Phone OnofreMarilynValenciaadan Barton APRN Primary Care Provider [phone] [phone] Encounter Details Date Type Department Care Team (Late st Contact Info) Description 09/21/2021 Tele[place] [address] Genet Johnston Social History Tobacco [...] Info) Description 05/23/2024 Hospital Encounter [place] [address] Lexii Ceaj MD [facility] [place] [address] documented as of this encounter Visit Diagnoses Not on filedocumented in this encounter Care Teams Resort Housekeeper Relationship Specialty Start Date End Date Valencia Adhikari APRN [address] [place] [address] PCP - General 04/21/14 07/04/23 documented as of this encounter
--- OUTSIDE RECORDS SUMMARY | 2024-03-15 15:28 | XMS_ITS | Encounter Summary ---
Author Organization [facility] Address [facility] [place] [address] Care Team Providers Care Linux Kernel Developer Name Role Phone Valencia Adhikari APRN Primary Care Provider [phone] Reason for Visit * Reason Onset Date Comments Medication Refill 05/11/2021 Encounter Details Date Type Department Care Team (Late st Contact Info) Description 05/11/2021 Refill [place] [address] Maite Goff, TRE Social History [...] Info) Description 05/23/2024 Hospital Encounter [place] [address] Lexii Ceja MD [facility] OBSTETRICS [place] [address] documented as of this encounter Visit Diagnoses Not on filedocumented in this encounter Care Teams Linux Kernel Developer Relationship Specialty Start Date End Date Valencia Adhikari APRN [address] [place] [address] PCP - General 04/21/14 07/04/23 documented as of this encounter
--- OUTSIDE RECORDS SUMMARY | 2024-03-15 15:28 | XMS_ITS | Encounter Summary ---
Author Organization [facility] Address [facility] [place] [address] Care Team Providers Care Veneer Glue Spreader Name Role Phone Valencia Adhikari APRN Primary Care Provider [phone] [phone] Encounter Details Date Type Department Care Team (Latest Contact Info) Description 07/28/2021 11:00 AM EDT TH Visit (TeleHealth) Psychiatry [place] [address] Lisa Dickens, PhD [facility] [place] [address] Unspecified mood (affective) disorder; Borderline personality disorder [...] EDT INDIVIDUAL THERAPY PROGRESS NOTE CPT CODE 22890 LOCATION: Telehealth visit. Andree SinghTamara gave permission for and was seen for today's appointment with a Telehealth visit. During this visit she was located in her apartment in [place], [place]. Andree Hummel is aware that for any urgent matter she can can contact her regional mental health crisis services. For patients located in [place]: [email or web address] or text/call . Forpatients located in [place]: [email or web address]. To reach their [facility] mental health clinician or the outpatient Department of Psychiatry clinics,patient can call [phone]. SESSION DURATION: 40 minutes ATTENDEES: Patient PRIMARY COMPLAINT/DIAGNOSIS: Borderline Personality Disorder; Unspecified Mood Disorder TREATMENT MODALITY: DBT PATIENT REPORT OF CURRENT FUNCTIONING/CHANGES: Patient reported: -was late due to internet connectivity problems -appointment at [facility] next week -saw psychiatrist yesterday, upping Effexor, [...] Contact Info) Description 05/23/2024 [place] [address] Lexii Ceja MD [facility] OBSTETRICS [place] [address] documented as of this encounter Visit Diagnoses Diagnosis Unspecified mood (affective) disorder Borderline personality disorder documented in this encounter Care Teams Veneer Glue Spreader Relationship Specialty Start Date End Date Valencia Adhikari APRN [address] [place] [address] PCP - General 04/21/14 07/04/23 documented as of this encounter
--- OUTSIDE RECORDS SUMMARY | 2024-03-15 15:28 | XMS_ITS | Encounter Summary ---
Author Organization [facility] [place] [address] Care Team Providers Care Silk Brusher Name Role Phone OnofreMarilynValencia Oralia SLADE Primary Care Provider +1 [phone] Encounter Details Date Type Department Care Team (Late st Contact Info) Description 12/13/2021 Telephone G[place] [address] Peg Cast Social History Tobacco [...] Contact Info) Description 05/23/2024 [place] [address] Lexii Ceja MD [facility] OBSTETRICS [place] [address] documented as of this encounter Visit Diagnoses Not on filedocumented in this encounter Care Teams Silk Brusher Relationship Specialty Start Date End Date Valencia Adhikari APRN [address] [place] [address] PCP - General 04/21/14 07/04/23 documented as of this encounter
--- OUTSIDE RECORDS SUMMARY | 2024-03-15 15:28 | XMS_ITS | Encounter Summary ---
Author Organization [facility] Address [facility] [place] [address] Care Team Providers Care Filler Sifter Machine Name Role Phone Valencia Adhikari APRN Primary Care Provider [phone] Encounter Details Date Type Department Care Team (Late st Contact Info) Description 03/14/2021 Telephone Psychiatry [place] [address] Mary Bateman Social History Tobacco [...] Contact Info) Description 05/23/2024 [facility] [place] [address] Lexii Ceja MD [facility] DR OBSTETRICS [place] [address] documented as of this encounter Visit Diagnoses Not on filedocumented in this encounter Care Teams Filler Sifter Machine Relationship Specialty Start Date End Date Valencia Adhikari APRN [address] [place] [address] PCP - General 04/21/14 07/04/23 documented as of this encounter
--- OUTSIDE RECORDS SUMMARY | 2024-03-15 15:28 | XMS_ITS | Encounter Summary ---
Author Organization Replaced By [facility] Address [facility] [place] [address] Care Team Providers Care Industrial Design Engineer Name Role Phone Valencia Adhikari APRN Primary Care Provider [phone] Reason for Visit * Psychiatric - Closed Specialty Diagnoses / Procedures Referred By Lamont riggnis Referred To Contact Psychiatry Diagnoses Unspecified mood (affective) disorder Crispin Fuller MD [facility] [place] [address] Lisa Dickens, PhD [facility] [place] [address] Referral ID Status Reason Start Date Expiration Date V isits Requested Visits Authorized [id number] Closed Consult, Test & Treat 02/16/2020 02/15/2021 1 1 Encounter Details Date Type Department Care Team (Latest Contact Info) Description 07/12/2020 9:00 AM EDT TH Visit (TeleHealth) Psychiatry [place] [address] Lisa iDckens, PhD [facility] [place] [address] Borderline personality disorder; Mood disorder Social History [...] EDT INDIVIDUAL THERAPY PROGRESS NOTE CPT CODE 19302 LOCATION: Telehealth. Andree Godoy WallisKamranTamara gave permission for and was seen for today's appointment with a Telehealth visit. During this visit she was located in her apartment in [place], [place]. Andree WallisKamranTamara is aware that for any urgent matter she can call [phone]. SESSION DURATION: 60 minutes ATTENDEES: Patient PRIMARY COMPLAINT/DIAGNOSIS: Borderline Personality Disorder; Unspecified Mood Disorder TREATMENT MODALITY: DBT PATIENT REPORT OF CURRENT FUNCTIONING/CHANGES: This was our initial session. Patient had an evaluation with Dr. Crispin Fuller in February 2020. During today's session, patient reported: -grew up in caodaism [place] household, parents immigrated from [place] and were very caodaism, patient was oldest of 4 biological children, [...] Contact Info) Description 05/23/2024 [place] [address] Lexii Ceja MD [facility] [address] OBST[place] [address] Scheduled Referrals Name Type Priority Associated Diagnoses Order Schedule Referral to Psychology Outpatient Referral Routine Unspecified mood (affective) disorder Ordered: 02/16/2020 documented as of this encounter Visit Diagnoses Diagnosis Borderline personality disorder Mood disorder Unspecified episodic mood disorder documented in this encounter Care Teams Industrial Design Engineer Relationship Specialty Start Date End Date Valencia dAhikari APRN [address] [place] [address] PCP - General 04/21/14 07/04/23 documented as of this encounter
--- OUTSIDE RECORDS SUMMARY | 2024-03-15 15:28 | XMS_ITS | Encounter Summary ---
Author Organization [facility] Address [facility] [place] [address] Care Team Providers Care Medical Lab Assistant Name Role Phone Valencia Adhikari APRN Primary Care Provider [phone] [phone] Encounter Details Date Type Department Care Team (Latest Contact Info) Description 07/21/2021 11:00 AM EDT TH Visit (TeleHealth) Psychiatry [place] [address] Lisa Dickens, PhD [facility] [place] [address] Unspecified mood (affective) disorder; Borderline personality disorder [...] EDT INDIVIDUAL THERAPY PROGRESS NOTE CPT CODE 19594 LOCATION: Telehealth visit. Andree SinghTamara gave permission for and was seen for today's appointment with a Telehealth visit. During this visit she was located in her apartment in [place], [place]. Andree Hummel is aware that for any urgent matter she can can contact her regional mental health crisis services. For patients located in [place]: www.[email or web address] or text/call . Forpatients located in [place]: [email or web address]. To reach their [facility] mental health clinician or the outpatient Department of Psychiatry clinics,patient can call [phone]. 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 -worried she will lose her job, her car, has court date in October, not sure she can afford a campus aide CENTRAL THEME OF SESSION: Crisis Survival Skills [...] Contact Info) Description 05/23/2024 Hospital [place] [address] Lexii Ceja MD [facility] DR OBSTET[place] [address] documented as of this encounter Visit Diagnoses Diagnosis Unspecified mood (affective) disorder Borderline personality disorder documented in this encounter Care Teams Medical Lab Assistant Relationship Specialty Start Date End Date Valencia Adhikari APRN [address] [place] [address] PCP - General 04/21/14 07/04/23 documented as of this encounter
--- OUTSIDE RECORDS SUMMARY | 2024-03-15 15:28 | XMS_ITS | Encounter Summary ---
Author Organization [facility] Address [facility] [place] [address] Care Team Providers Care Chef & Owner Name Role Phone Valencia Adhikari APRN Primary Care Provider [phone] [phone] Encounter Details Date Type Department Care Team (Latest Contact Info) Description 09/22/2021 11:00 AM EDT TH Visit (TeleHealth) Psychiatry [place] [address] Lisa Dickens, PhD [facility] [place] [address] Unspecified mood (affective) disorder; Borderline personality disorder [...] EDT INDIVIDUAL THERAPY PROGRESS NOTE CPT CODE 04264 LOCATION: Telehealth visit. Andree SinghTamara gave permission for and was seen for today's appointment with a Telehealth visit. During this visit she was located in her apartment in [place], [place]. Andree Hummel is aware that for any urgent matter she can can contact her regional mental health crisis services. For patients located in [place]: www.Good Greens or text/call . Forpatients located in [place]: [email or web address]. To reach their [facility] mental health clinician or the outpatient Department of Psychiatry clinics,patient can call [phone]. SESSION DURATION: 25 minutes ATTENDEES: Patient PRIMARY [...] Contact Info) Description 05/23/2024 [place] [address] Lexii Ceja MD [facility] OBSTETRICS [place] [address] documented as of this encounter Visit Diagnoses Diagnosis Unspecified mood (affective) disorder Borderline personality disorder documented in this encounter Care Teams Chef & Owner Relationship Specialty Start Date End Date Valencia Adhikari APRN [address] [place] [address] PCP - General 04/21/14 07/04/23 documented as of this encounter
--- OUTSIDE RECORDS SUMMARY | 2024-03-15 15:28 | XMS_ITS | Encounter Summary ---
Author Organization On License Of [facility] Address [facility] [place] [address] Care Team Providers Care Safe And Vault Mechanic Name Role Phone Valencia Adhikari APRN Primary Care Provider +1 -[phone] Encounter Details Date Type Department Care Team (Latest Contact Info) Description 03/21/2021 11:00 AM EST TH Visit (TeleHealth) Psychiatry [place] [address] Lisa Dickens, PhD [facility] [place] [address] Unspecified mood (affective) disorder; Borderline personality disorder [...] EST INDIVIDUAL THERAPY PROGRESS NOTE CPT CODE 64969 LOCATION: Telehealth. Toshaaaron Hummel gave permission for and was seen for today's appointment with a Telehealth visit. During this visit she was located in her apartment in [place], [place]. Andree Cespedesiams is aware that for any urgent matter she can call [phone]. SESSION DURATION: 40 minutes ATTENDEES: Patient PRIMARY [...] Contact Info) Description 05/23/2024 [place] [address] Lexii Ceja MD [facility] DR OBSTETR[place] [address] documented as of this encounter Visit Diagnoses Diagnosis Unspecified mood (affective) disorder Borderline personality disorder documented in this encounter Care Teams Safe And Vault Mechanic Relationship Specialty Start Date End Date Valencia Adhikari APRN [address] [place] [address] PCP - General 04/21/14 07/04/23 documented as of this encounter
--- OUTSIDE RECORDS SUMMARY | 2024-03-15 15:28 | XMS_ITS | Encounter Summary ---
Author Organization [facility] Address [facility] [place] [address] Care Team Providers Care Rn Case Management Name Role Phone Valencia Adhikari APRN Primary Care Provider +1 -[phone] Encounter Details Date Type Department Care Team (Latest Contact Info) Description 05/18/2021 2:30 PM EST TH Visit (TeleHealth) Psychiatry [place] [address] Crispin Fuller MD [facility] [place] [address] Borderline personality disorder Social History Tobacco Use [...] Attendee(s): Patient This patient was seen with motor vehicle assembly supervisor Dr. Awad. See their note for confirmatory and/or revisionarydocumentation. Andree Hummel gave permission for and was seen for today's appointment with a Telehealth visit. During this visit they were located in [place]. Andree Hummel is aware that for any urgent matter they can call: If you are located in [place], please call your local community crisis line at [place]: [facility] [phone],[place]: [facility] [phone], or text [place] to [phone] For further information for [place] residents: [email or web address] To reach your mental health clinician or the outpatient Department of Psychiatry clinics: [phone] Chief Complaint: Its been a lot History [...] cats and a dog. 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 Vitals (24hr Range): No data found. Musculoskeletal System: normal gait and balance, ambulates independently and no atrophy Mental Status Exam: ?? Appearance: age appropriate and casually dressed, purple hair ?? Behavior: cooperative with the interview and calm ?? Speech: normal pitch, normal volume, normal rate and normal rhythm ?? Language: fluent in welsh ?? Mood: a little better ?? Affect: [...] PHYSICIAN INVOLVEMENT Location: Adult Psychiatry Medication Clinic, [facility] Attending Physician: Jessica Awad MD Resident [...] Contact Info) Description 05/23/2024 [place] [address] Lexii Ceja MD [facility] DR OBSTETR[place] [address] documented as of this encounter Visit Diagnoses Diagnosis Borderline personality disorder documented in this encounter Care Teams Rn Case Management Relationship Specialty Start Date End Date Valencia Adhikari APRN [address] [place] [address] PCP - General 04/21/14 07/04/23 documented as of this encounter
--- OUTSIDE RECORDS SUMMARY | 2024-03-15 15:28 | XMS_ITS | Encounter Summary ---
Author Organization [facility] Address [facility] [place] [address] Care Team Providers Care Senior Oracle Database Administrator Name Role Phone Valencia Adhikari APRN Primary Care Provider +1 [phone] Encounter Details Date Type Department Care Team (Late st Contact Info) Description 07/15/2020 Telephone Psychiatry [place] [address] Lisa Dickens, PhD [facility] [place] [address] Social History Tobacco Use Types Packs/Day Years [...] scheduled session on 07/22 or call our technical support intern at [phone]. Diagnosis: Borderline Personality Disorder; Unspecified Mood Disorder Plan: Pt will attend next scheduled visit on 07/22/20. documented in this encounter Plan of Treatment Upcoming Encounters Date Type Department Care Team (Late st Contact Info) Description 05/23/2024 Hospital [place] [address] Lexii Ceja MD [facility] DR OBSTETR[place] [address] documented as of this encounter Visit Diagnoses Diagnosis Borderline personality disorder Unspecified mood (affective) disorder documented in this encounter Care Teams Senior Oracle Database Administrator Relationship Specialty Start Date End Date Valencia Adhikari APRN [address] [place] [address] PCP - General 04/21/14 07/04/23 documented as of this encounter
--- OUTSIDE RECORDS SUMMARY | 2024-03-15 15:28 | XMS_ITS | Encounter Summary ---
Author Organization [facility] Address [facility] [place] [address] Care Team Providers Care Middle School Baseball Coach Name Role Phone Valencia Adhikari APRN Primary Care Provider +1 [phone] Encounter Details Date Type Department Care Team (Latest Contact Info) Description 06/13/2021 3:00 PM EST TH Visit (TeleHealth) Psychiatry [place] [address] Lisa Dickens, PhD [facility] [place] [address] Unspecified mood (affective) disorder; Borderline personality disorder [...] EST INDIVIDUAL THERAPY PROGRESS NOTE CPT CODE 68571 LOCATION: Telehealth visit. Andree Artislliams gave permission for and was seen for today's appointment with a Telehealth visit. During this visit she was located in her apartment in [place], [place]. Andree Hummel is aware that for any urgent matter she can can contact her regional mental health crisis services. For patients located in [place]: [email or web address] or text/call . Forpatients located in [place]: [email or web address]. To reach their [facility] mental health clinician or the outpatient Department of Psychiatry clinics,patient can call [phone]. SESSION DURATION: 40 minutes ATTENDEES: Patient PRIMARY [...] Contact Info) Description 05/23/2024 Hospital [place] [address] Lexii Ceja MD [facility] DR OBSTETRICS [place] [address] documented as of this encounter Visit Diagnoses Diagnosis Unspecified mood (affective) disorder Borderline personality disorder documented in this encounter Care Teams Middle School Baseball Coach Relationship Specialty Start Date End Date Valencia Adhikari APRN [address] [place] [address] PCP - General 04/21/14 07/04/23 documented as of this encounter
--- OUTSIDE RECORDS SUMMARY | 2024-03-15 15:28 | XMS_ITS | Encounter Summary ---
Author Organization [facility] Address [facility] [place] [address] Care Team Providers Care Milieu Technician Name Role Phone OnofreValencia pitts BERLIN Primary Care Provider +1 [phone] Encounter Details Date Type Department Care Team (Late st Contact Info) Description 06/17/2020 Orders Only Psychiatry [place] [address] Crispin Fuller MD [facility] [place] [address] Social History Tobacco Use Types Packs/Day Years [...] Contact Info) Description 05/23/2024 [place] [address] Lexii Ceja MD [facility] [place] [address] documented as of this encounter Visit Diagnoses Not on filedocumented in this encounter Care Teams Milieu Technician Relationship Specialty Start Date End Date Valencia Adhikari APRN [address] [place] [address] PCP - General 04/21/14 07/04/23 documented as of this encounter
--- OUTSIDE RECORDS SUMMARY | 2024-03-15 15:28 | XMS_ITS | Encounter Summary ---
Author Organization [facility] Address [facility] [place] [address] Care Team Providers Care Equipment Operator/Laborer/Supervisor Name Role Phone Valencia Adhikari APRN Primary Care Provider +1 [phone] Encounter Details Date Type Department Care Team (Late st Contact Info) Description 05/23/2021 Telephone Psychiatry [place] [address] Lisa Dickens, PhD [facility] [place] [address] Social History Tobacco Use Types Packs/Day Years [...] Contact Info) Description 05/23/2024 [facility] [place] [place] [address] Lexii Ceja MD [facility] DR OBSTETRICS [place] [address] documented as of this encounter Visit Diagnoses Diagnosis Borderline personality disorder Unspecified mood (affective) disorder documented in this encounter Care Teams Equipment Operator/Laborer/Supervisor Relationship Specialty Start Date End Date Valencia Adhikari APRN [address] [place] [address] PCP - General 04/21/14 07/04/23 documented as of this encounter
--- OUTSIDE RECORDS SUMMARY | 2024-03-15 15:28 | XMS_ITS | Encounter Summary ---
Author Organization [facility] [place] [address] Care Team Providers Care Electromedical Service Engineer Name Role Phone Richard Rasheed MD Primary Care Provider [phone] Encounter Details Date Type Department Care Team (Late st Contact Info) Description 07/22/2023 Telephone Obstetrics [place] [address] Heavenly Blackmon MD [facility] DR OBSTETRICS [place] [address] Social History Tobacco Use Types Packs/Day Years [...] Contact Info) Description 05/23/2024 Hospital En[facility] [place] [address] Lexii Ceja MD [facility] OBSTETR[place] [address] documented as of this encounter Visit Diagnoses Not on filedocumented in this encounter Care Teams Electromedical Service Engineer Relationship Specialty Start Date End Date Richard Rasheed MD [address] [place] [address] PCP - General Family Medicine 07/05/23 documented as of this encounter
--- OUTSIDE RECORDS SUMMARY | 2024-03-15 15:28 | XMS_ITS | Encounter Summary ---
Author Organization [facility] Address [facility] [place] [address] Care Team Providers Care Shipboard Intelligence Analyst Name Role Phone Valencia Adhikari APRN Primary Care Provider [phone] [phone] Encounter Details Date Type Department Care Team (Latest Contact Info) Description 08/19/2020 1:00 PM EDT TH Visit (TeleHealth) Psychiatry [place] [address] Lisa Dickens, PhD [facility] [place] [address] Borderline personality disorder; Unspecified mood (affective) disorder [...] EDT INDIVIDUAL THERAPY PROGRESS NOTE CPT CODE 40491 LOCATION: Telehealth. Toshaaaron Artislliams gave permission for and was seen for today's appointment with a Telehealth visit. During this visit she was located in her apartment in [place], [place]. Andree UnderwoodWilliams is aware that for any urgent matter she can call [phone]. SESSION DURATION: 50 minutes ATTENDEES: Patient PRIMARY [...] Description 05/23/2024 [place] [address] Lexii Ceja MD [facility] DR OBSTETRICS [place] [address] documented as of this encounter Visit Diagnoses Diagnosis Borderline personality disorder Unspecified mood (affective) disorder documented in this encounter Care Teams Shipboard Intelligence Analyst Relationship Specialty Start Date End Date Valencia Adhikari APRN [address] [place] [address] PCP - General 04/21/14 07/04/23 documented as of this encounter
--- OUTSIDE RECORDS SUMMARY | 2024-03-15 15:28 | XMS_ITS | Encounter Summary ---
Author Organization [facility] Address [facility] [place] [address] Care Team Providers Care Dietetics Professor Name Role Phone Valencia Adhikari APRN Primary Care Provider [phone] [phone] Encounter Details Date Type Department Care Team (Latest Contact Info) Description 05/30/2021 3:00 PM EST TH Visit (TeleHealth) Psychiatry [place] [address] Lisa Dickens, PhD [facility] DR [place] [address] Unspecified mood (affective) disorder; Borderline personality disorder [...] EST INDIVIDUAL THERAPY PROGRESS NOTE CPT CODE 03029 LOCATION: Telehealth visit. Andree Artislliams gave permission for and was seen for today's appointment with a Telehealth visit. During this visit she was located in her apartment in [place], [place]. Andree Hummel is aware that for any urgent matter she can can contact her regional mental health crisis services. For patients located in [place]: [email or web address] or text/call . Forpatients located in [place]: [email or web address]. To reach their [facility] mental health clinician or the outpatient Department of Psychiatry clinics,patient can call [phone]. SESSION DURATION: 40 minutes ATTENDEES: Patient PRIMARY [...] Contact Info) Description 05/23/2024 Hospital [place] [address] Lexii Ceja MD [facility] DR OBSTETRICS [place] [address] documented as of this encounter Visit Diagnoses Diagnosis Unspecified mood (affective) disorder Borderline personality disorder documented in this encounter Care Teams Dietetics Professor Relationship Specialty Start Date End Date Valencia Adhikari APRN [address] [place] [address] PCP - General 04/21/14 07/04/23 documented as of this encounter
--- OUTSIDE RECORDS SUMMARY | 2024-03-15 15:28 | XMS_ITS | Encounter Summary ---
Author Organization [facility] [place] [address] Care Team Providers Care Cloak Room Attendant Name Role Phone Valencia Adhikari APRN Primary Care Provider [phone] [phone] Encounter Details Date Type Department Care Team (Late st Contact Info) Description 04/13/2023 Telephone Obstetrics [place] [address] Jody Wood RN Social History [...] Trimester Bleeding Per Protocol criteria ( Protocol #[id number]) meets criteria: Patient is less than 7 [...] requesting to have these labs drawn at [facility]. Will ssend these electronically. * Telephone Encounter - Jody Wood RN - 04/13/2023 1:28 PM EST ----- Message from Corine Alexander sent at 04/13/2023 1:00 PM EST ----- Regarding: spotting Caller's name: Andree Mcdonald Call back #: [phone] Patient's provider/team: EVANGELISTA 05/09 Reason for call: Slight spotting? documented in this encounter Plan of Treatment Upcoming Encounters Date Type Department Care Team (Late st Contact Info) Description 05/23/2024 [facility] [place] [address] Lexii Ceja MD [facility] OBSTETRICS [place] [address] documented as of this encounter Visit Diagnoses Not on filedocumented in this encounter Care Teams Cloak Room Attendant Relationship Specialty Start Date End Date Valencia Adhikari APRN [address] [place] [address] PCP - General 04/21/14 07/04/23 documented as of this encounter
--- OUTSIDE RECORDS SUMMARY | 2024-03-15 15:28 | XMS_ITS | Encounter Summary ---
Author Organization [facility] [place] [address] Care Team Providers Care Insecticide Expert Name Role Phone Onofre Valenciaadan Barton APRN Primary Care Provider [phone] [phone] Encounter Details Date Type Department Care Team (Late st Contact Info) Description 10/10/2021 Telephone [place] [address] Peg Cast Social History Tobacco [...] Contact Info) Description 05/23/2024 [place] [address] Lexii Ceja MD [facility] DR OBSTETRICS [place] [address] documented as of this encounter Visit Diagnoses Not on filedocumented in this encounter Care Teams Insecticide Expert Relationship Specialty Start Date End Date Valencia Adhikari APRN [address] [place] [address] PCP - General 04/21/14 07/04/23 documented as of this encounter
--- OUTSIDE RECORDS SUMMARY | 2024-03-15 15:28 | XMS_ITS | Encounter Summary ---
[place] [address] Care Team Providers Care Furrier Designer Name Role Phone OnofreMarilynValencia H BERLIN Primary Care Provider [phone] [phone] Encounter Details Date Type Department Care Team (Late st Contact Info) Description 12/07/2021 Telephone [place] [address] Magalie Pinon Social History Tobacco [...] calls can be handled by: Any Procedure Bologna Maker documented in this encounter Plan of Treatment Upcoming Encounters Date Type Department Care Team (Late st Contact Info) Description 05/23/2024 [place] [address] Lexii Ceja MD [facility] DR OBSTETRICS [place] [address] documented as of this encounter Visit Diagnoses Not on filedocumented in this encounter Care Teams Furrier Designer Relationship Specialty Start Date End Date Valencia Adhikari APRN [address] [place] [address] PCP - General 04/21/14 07/04/23 documented as of this encounter
--- OUTSIDE RECORDS SUMMARY | 2024-03-15 15:28 | XMS_ITS | Encounter Summary ---
Author Organization [facility] Address [facility] [place] [address] Care Team Providers Care Check Cashier Name Role Phone Valencia Adhikari APRN Primary Care Provider +1 -[phone] Encounter Details Date Type Department Care Team (Latest Contact Info) Description 05/09/2021 3:00 PM EST TH Visit (TeleHealth) Psychiatry [place] [address] Lisa Dickens, PhD [facility] [place] [address] Unspecified mood (affective) disorder; Borderline personality disorder [...] EST INDIVIDUAL THERAPY PROGRESS NOTE CPT CODE 00502 LOCATION: Telehealth visit. Andree Artislliams gave permission for and was seen for today's appointment with a Telehealth visit. During this visit she was located in her apartment [place], [place] is aware that for any urgent matter she can can contact her regional mental health crisis services. For patients located in [place]: [email or web address] or text/call . Forpatients located in [place]: [email or web address]. To reach their [facility] mental health clinician or the outpatient Department of Psychiatry clinics,patient can call [phone]. SESSION DURATION: 40 minutes ATTENDEES: Patient PRIMARY [...] Contact Info) Description 05/23/2024 [place] [address] Lexii Ceja MD [facility] [place]ST[place] [address] documented as of this encounter Visit Diagnoses Diagnosis Unspecified mood (affective) disorder Borderline personality disorder documented in this encounter Care Teams Check Cashier Relationship Specialty Start Date End Date Valencia Adhikari APRN [address] [place] [address] PCP - General 04/21/14 07/04/23 documented as of this encounter
--- OUTSIDE RECORDS SUMMARY | 2024-03-15 15:28 | XMS_ITS | Encounter Summary ---
Author Organization [facility] [place] [address] Care Team Providers Care Maintenance And Custodian Supervisor Name Role Phone Valencia Adhikari APRN Primary Care Provider +1 -[phone] Encounter Details Date Type Department Care Team (Late st Contact Info) Description 05/10/2021 Telephone [place] [address] Maite Goff RN Social History [...] Contact Info) Description 05/23/2024 [place] [address] Lexii Ceja MD [facility] DR [place] [address] documented as of this encounter Visit Diagnoses Not on filedocumented in this encounter Care Teams Maintenance And Custodian Supervisor Relationship Specialty Start Date End Date Valencia Adhikari APRN [address] [place] [address] PCP - General 04/21/14 07/04/23 documented as of this encounter
--- OUTSIDE RECORDS SUMMARY | 2024-03-15 15:28 | XMS_ITS | Encounter Summary ---
Author Organization [facility] Address [facility] [place] [address] Care Team Providers Care Swedish Masseuse Name Role Phone OnofreMarilyn pittshryn Oralia [place] Primary Care Provider +1 -[phone] Encounter Details Date Type Department Care Team (Latest Contact Info) Description 08/01/2022 11:00 AM EDT TH Visit (TeleHealth) [place] [address] Shelli Kearns MD [facility] [place] [address] PATIENT NOT SEEN Social History Tobacco Use [...] Contact Info) Description 05/23/2024 [place] [address] Lexii eCja MD [facility] [place]STET[place] [address] documented as of this encounter Visit Diagnoses Diagnosis DH PATIENT NOT SEEN documented in this encounter Care Teams Swedish Masseuse Relationship Specialty Start Date End Date Valencia Adhikari APRN [address] [place] [address] PCP - General 04/21/14 07/04/23 documented as of this encounter
--- OUTSIDE RECORDS SUMMARY | 2024-03-15 15:28 | XMS_ITS | Encounter Summary ---
Author Organization [facility] Address [facility] [place] [address] Care Team Providers Care Dance Professor Name Role Phone OnofreMarilynValencia Oralia SLADE Primary Care Provider +1 -[phone] Reason for Visit * Reason Onset Date Comments Medication Refill 2020 Encounter Details Date Type Department Care Team (Late st Contact Info) Description 2020 Refill Psychiatry and [place] [address] Crispin Fuller MD [facility] [place] [address] Anxiety Social History Tobacco Use Types Packs/Day [...] Contact Info) Description 05/23/2024 Hospital [facility] [place] [address] Lexii Ceja MD [facility] [place] [address] documented as of this encounter Visit Diagnoses Diagnosis Anxiety Anxiety state, unspecified documented in this encounter Care Teams Dance Professor Relationship Specialty Start Date End Date Valencia Adhikari APRN [address] [place] [address] PCP - General 04/21/14 07/04/23 documented as of this encounter
--- OUTSIDE RECORDS SUMMARY | 2024-03-15 15:28 | XMS_ITS | Encounter Summary ---
[place] [address] Care Team Providers Care Produce Field Merchandiser Name Role Phone Richard Rasheed MD Primary Care Provider [phone] Reason for Referral * Psychiatric (Routine) - Closed Specialty Diagnoses / Procedures Referred By Contwillow t Referred To Contact Psychiatry Diagnoses Bipolar affective disorder, current episode mixed, current episode severity unspecified Richard Rasheed MD [address] [place] [address] [facility] [address] Referral ID Status Reason Start Date Expiration Date V isits Requested Visits Authorized [id number] Closed Consult, Test & Treat PCP Updated and/or Approved 07/05/2023 07/04/2024 6 6 Encounter Details Date Type Department Care Team (Latest Contact Info) Description 07/05/2023 Transcribe Orders eDH Incoming Referrals [phone] Richard Rasheed MD [address] [place] [address] Bipolar affective disorder, current episode [...] Contact Info) Description 05/23/2024 Hospital [place] [address] Lexii Ceja MD [facility] [address] OBSTETRICS [place] [address] Scheduled Referrals Name Type Priority Associated Diagnoses Orde r Schedule Referral to Adult Psychiatry Outpatient Referral Routine Bipolar affective disorder, current episode mixed, current episode severity unspecified Ordered: 07/05/2023 documented as of this encounter Visit Diagnoses Diagnosis Bipolar affective disorder, current episode mixed, current episode severity unspecified documented in this encounter Care Teams Produce Field Merchandiser Relationship Specialty Start Date End Date Richard Rasheed MD [address] [place] [address] PCP - General Family Medicine 07/05/23 documented as of this encounter
--- OUTSIDE RECORDS SUMMARY | 2024-03-15 15:28 | XMS_ITS | Encounter Summary ---
Author Organization [facility] Address [facility] [place] [address] Care Team Providers Care Event Specialist Name Role Phone Valencia Adhikari APRN Primary Care Provider [phone] Encounter Details Date Type Department Care Team (Late st Contact Info) Description 05/02/2021 Telephone Psychiatry [place] [address] Mary Bateman Social History Tobacco Use Types [...] Description 05/23/2024 [facility] [place] [address] Lexii Ceja MD [facility] OBSTETRICS [place] [address] documented as of this encounter Visit Diagnoses Not on filedocumented in this encounter Care Teams Event Specialist Relationship Specialty Start Date End Date Valencia Adhikari APRN [address] [place] [address] PCP - General 04/21/14 07/04/23 documented as of this encounter
--- OUTSIDE RECORDS SUMMARY | 2024-03-15 15:28 | XMS_ITS | Encounter Summary ---
Author Organization [facility] Address [facility] [place] [address] Care Team Providers Care Slate Splitter Name Role Phone Valencia Adhikari APRN Primary Care Provider [phone] Encounter Details Date Type Department Care Team (Latest Contact Info) Description 11/17/2021 8:00 AM EDT TH Visit (TeleHealth) Psychiatry [place] [phone] Lisa Dickens, PhD [facility] [place] [address] Unspecified mood (affective) disorder; Borderline personality disorder [...] EDT INDIVIDUAL THERAPY PROGRESS NOTE CPT CODES 84284, 40298, 43723 LOCATION: Telehealth. Andree Hummel gave permission for and was seen for today's appointment with a Telehealth visit. During this visit she was located at her home in [place], [place]. Anrdee WallisYasir is aware that for any urgent matter she can call [phone]. 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, pay is good but due to the changeover in employers, she hasn't had a paycheck in several weeks and costs have increased -son is returning to school in 2 weeks, will make some things easier (sleeping during the day afteran overnight shift) but other things harder (not having as much time together on her days off) -trip to [place] with family was okay, took about four days for me to lose it, trigger was sistertelling everyone to bead picker their hair since their aunt had [...] no suicidal or homicidal ideation expressed ASSESSMENT/OBSERVATIONS: Andere arrived several minutes late to the appointment [...] that she had attempted suicide 3x in [place], around the age of 18. At that [...] emergencies, call 988 from anywhere in the [facility]. State specific information for [place] and [place] crisis services are as follows and should be used to access local resources: [facility] Crises Services [facility] Crisis Line text or call Visit www.Zidisha for further information [place] Call your local [facility] crisis line at: [place]: Counseling Service of [facility] [phone] [place]: [facility] Services [phone] [place]: [facility] [phone] [place]: [facility] [phone] [place]: [facility] [phone] [place]alyan doris [place]: [facility] Counseling and Support [phone] [place]: [facility] Mental Health [phone] on weekdays 8AM-4:30PM and [phone] on nights and weekends [place] Manuel: Jennifer Alvarez [place]: [facility] [phone] [place]: [facility] Services [phone] [place]: [facility] Services, [place]: [facility] [place]: [facility] or Text [place] to [phone] For further information for [place] residents: https://mentalhealth.[place].gov/services/emergency-services/fhj-mle-nbxk National Suicide Prevention Hotline: For patients cared for in the Department of Psychiatry, you can reach your mental health clinician at [phone]. Lisa Dickens, PhD documented in this encounter Plan of Treatment Upcoming Encounters Date Type Department Care Team (Late st Contact Info) Description 05/23/2024 [place] [address] Lexii Ceja MD [facility] DR OBSTETRICS [place] [address] documented as of this encounter Visit Diagnoses Diagnosis Unspecified mood (affective) disorder Borderline personality disorder documented in this encounter Care Teams Slate Splitter Relationship Specialty Start Date End Date Valencia Adhikari APRN [address] [place] [address] PCP - General 04/21/14 07/04/23 documented as of this encounter
--- OUTSIDE RECORDS SUMMARY | 2024-03-15 15:28 | XMS_ITS | Encounter Summary ---
[place] [address] Care Team Providers Care Architecture Intern Name Role Phone OnofreMarilynValenciaadan Barton APRN Primary Care Provider [phone] Encounter Details Date Type Department Care Team (Late st Contact Info) Description 11/21/2021 Telephone [place] [address] Magalie Pinon Social History Tobacco [...] can be handled by: Any Procedure Supervisor Belt And Link Assembly documented in this encounter Plan of Treatment Upcoming Encounters Date Type Department Care Team (Late st Contact Info) Description 05/23/2024 Hospital [place] [address] Lexii Ceja MD [facility] DR OBSTETRICS [place] [address] documented as of this encounter Visit Diagnoses Not on filedocumented in this encounter Care Teams Architecture Intern Relationship Specialty Start Date End Date Valencia Adhikari APRN [address] [place] [address] PCP - General 04/21/14 07/04/23 documented as of this encounter
--- OUTSIDE RECORDS SUMMARY | 2024-03-15 15:28 | XMS_ITS | Encounter Summary ---
Author Organization [facility] Address [facility] [place] [address] Care Team Providers Care Salon Coordinator Name Role Phone Valencia Adhikari APRN Primary Care Provider [phone] Encounter Details Date Type Department Care Team (Latest Contact Info) Description 07/27/2021 3:30 PM EDT TH Visit (TeleHealth) Psychiatry [place] [phone] Crispin Fuller MD [facility] [place] [address] Borderline personality disorder; Substance use disorder Social [...] Attendee(s): Patient This patient was seen with subwarehouse supervisor Dr. Awad. See their note for confirmatory and/or revisionarydocumentation. Andree Hummel gave permission for and was seen for today's appointment with a Telehealth visit. During this visit they were located in [place]. Andree Hummel is aware that for any urgent matter they can call: If you are located in [place], please call your local community crisis line at [place]: [facility] [phone],[place]: [facility] [phone], or text [place] to [phone] For further information for [place] residents: [email or web address].[place].[facility]/services/emergency-services/ipr-hyr-cidf To reach your mental health clinician or the outpatient Department of Psychiatry clinics: [phone] Chief Complaint: Its bad History of Present [...] therapist to pursue outpatient substance treatment through [facility] with plans for first visit next . [...] cats and a dog. 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 Vitals (24hr Range): No data found. Musculoskeletal [...] to engage in outpatient substance treatment at [facility] starting next and reports a goal of [...] associated legal issues. Has an appointment at [facility] next week. Reports using cannabis, drinking a six-pack weekly. Reports depressed mood. Denies suicidalideation. Plan today to change Effexor to XR and increase to 150mg daily, continue mirtazapine 15mgqHS. Jessica Awad MD documented in this encounter Plan of Treatment Upcoming Encounters Date Type Department Care Team (Late st Contact Info) Description 05/23/2024 [place] [address] Lexii Ceja MD [facility] [address] [place] [address] documented as of this encounter Visit Diagnoses Diagnosis Borderline personality disorder Substance use disorder documented in this encounter Care Teams Salon Coordinator Relationship Specialty Start Date End Date Valencia Adhikari APRN [address] [place] [address] PCP - General 04/21/14 07/04/23 documented as of this encounter
--- OUTSIDE RECORDS SUMMARY | 2024-03-15 15:28 | XMS_ITS | Encounter Summary ---
[place] [address] Care Team Providers Care Senior Contracts Manager Name Role Phone Valencia Adhikari APRN Primary Care Provider [phone] Encounter Details Date Type Department Care Team (Late st Contact Info) Description 05/18/2020 Telephone Psychiatry [place] [address] Sary Harris Social History Tobacco Use Types [...] [facility] [place] [address] Lexii Ceja MD [facility] [place] [address] documented as of this encounter Visit Diagnoses Not on filedocumented in this encounter Care Teams Senior Contracts Manager Relationship Specialty Start Date End Date Valencia Adhikari APRN [address] [place] [address] PCP - General 04/21/14 07/04/23 documented as of this encounter
--- OUTSIDE RECORDS SUMMARY | 2024-03-15 15:28 | XMS_ITS | Encounter Summary ---
[place] [address] Care Team Providers Care Manager Property Name Role Phone Valencia Adhikari APRN Primary Care Provider [phone] Reason for Referral * Consultation (Routine) - Closed Specialty Diagnoses / Procedures Referred By Lamont riggins Referred To Contact Gastroenterology Diagnoses Irregular bowel habits Irregular bowel habits Valencia Adhikari APRN [address] [place] [address] [facility] [place] [address] Referral ID Status Reason Start Date Expiration Date V isits Requested Visits Authorized [id number] Closed Consult, Test & Treat 06/27/2021 06/27/2022 1 1 Encounter Details Date Type Department Care Team (Latest Contact Info) Description 06/27/2021 Transcribe Orders eDH Incoming Referrals [phone] Valencia Adhikari APRN [address] [place] [address] Irregular bowel habits Social History [...] Info) Description 05/23/2024 Hospital [place] [address] Lexii Ceja MD [facility] OBSTETRICS [place] [address] Scheduled Referrals Name Type Priority Associated Diagnoses Order Schedule Referral to Gastroenterology Outpatient Referral Routine Irregular bowel habits Ordered: 06/27/2021 documented as of this encounter Visit Diagnoses Diagnosis Irregular bowel habits Other specified disorder of intestines documented in this encounter Care Teams Manager Property Relationship Specialty Start Date End Date Valencia Adhikari APRN [address] [place] [address] PCP - General 04/21/14 07/04/23 documented as of this encounter
--- OUTSIDE RECORDS SUMMARY | 2024-03-15 15:28 | XMS_ITS | Encounter Summary ---
Author Organization Replaced By [facility] Address [facility] [place] [address] Care Team Providers Care Dye Worker Name Role Phone Valencia Adhikari APRN Primary Care Provider [phone] Encounter Details Date Type Department Care Team (Latest Contact Info) Description 06/06/2021 3:00 PM EST TH Visit (TeleHealth) Psychiatry and [place] [address] Lisa Dickens, PhD [facility] [place] [address] Borderline personality disorder; Unspecified mood (affective) disorder [...] EST INDIVIDUAL THERAPY PROGRESS NOTE CPT CODE 36312 LOCATION: Telehealth visit. Andree Artislliams gave permission for and was seen for today's appointment with a Telehealth visit. During this visit she was located in her apartment in [place], [place]. Andree Hummel is aware that for any urgent matter she can can contact her regional mental health crisis services. For patients located in [place]: www.[place] or text/call . Forpatients located in [place]: [email or web address].[place].[facility]/services/emergency-services/sde-pdy-lygn. To reach their [facility] mental health clinician or the outpatient Department of Psychiatry clinics,patient can call [phone]. SESSION DURATION: 17 minutes ATTENDEES: Patient PRIMARY [...] than 20 minutes as she had to picking machine operator helper her son CENTRAL THEME OF SESSION: Cognitive [...] Contact Info) Description 05/23/2024 [place] [address] Lexii Ceja MD [facility] DR OBSTETRICS [place] [address] documented as of this encounter Visit Diagnoses Diagnosis Borderline personality disorder Unspecified mood (affective) disorder documented in this encounter Care Teams Dye Worker Relationship Specialty Start Date End Date Valencia Adhikari APRN [address] [place] [address] PCP - General 04/21/14 07/04/23 documented as of this encounter
--- OUTSIDE RECORDS SUMMARY | 2024-03-15 15:28 | XMS_ITS | Encounter Summary ---
Author Organization [facility] Address [facility] [place] [address] Care Team Providers Care Telephone Clerk Telegraph Office Name Role Phone Richard Rasheed MD Primary Care Provider [phone] Encounter Details Date Type Department Care Team (Late st Contact Info) Description 08/13/2023 Telephone Obstetrics [place] [address] Sarah Tejeda Social History Tobacco [...] Contact Info) Description 05/23/2024 Hospital [place] [address] Lexii Ceja MD [facility] DR OBSTETRICS [place] [address] documented as of this encounter Visit Diagnoses Not on filedocumented in this encounter Care Teams Telephone Clerk Telegraph Office Relationship Specialty Start Date End Date Richard Rasheed MD [address] [place] [address] PCP - General Family Medicine 07/05/23 documented as of this encounter
--- OUTSIDE RECORDS SUMMARY | 2024-03-15 15:28 | XMS_ITS | Encounter Summary ---
Author Organization [facility] Address [facility] [place] [address] Care Team Providers Care Rhinologist Name Role Phone Valencia Adhikari APRN Primary Care Provider [phone] Encounter Details Date Type Department Care Team (Late st Contact Info) Description 10/03/2021 Notes Only Psychiatry [place] [address] Crispin Fuller MD [facility] [place] [address] Social History Tobacco Use Types Packs/Day Years [...] Contact Info) Description 05/23/2024 Hospital [place] [address] Lexii Ceja MD [facility] DR OBSTETRICS [place] [address] documented as of this encounter Visit Diagnoses Not on filedocumented in this encounter Care Teams Rhinologist Relationship Specialty Start Date End Date Valencia Adhikari APRN [address] [place] [address] PCP - General 04/21/14 07/04/23 documented as of this encounter
--- OUTSIDE RECORDS SUMMARY | 2024-03-15 15:28 | XMS_ITS | Encounter Summary ---
Author Organization [facility] Address [facility] [place] [address] Care Team Providers Care Child And Adolescent Psychologist Name Role Phone Valencia Adhikari APRN Primary Care Provider [phone] Encounter Details Date Type Department Care Team (Latest Contact Info) Description 07/29/2020 1:00 PM EDT TH Visit (TeleHealth) Psychiatry [place] [address] Lisa Dickens, PhD [facility] [place] [address] Borderline personality disorder; Unspecified mood (affective) disorder [...] EDT INDIVIDUAL THERAPY PROGRESS NOTE CPT CODE 45197 LOCATION: Telehealth. Andree Hummel gave permission for and was seen for today's appointment with a Telehealth visit. During this visit she was located in her apartment in [place], [place]. Andree WallisYasir is aware that for any urgent matter she can call [phone]. SESSION DURATION: 50 minutes ATTENDEES: Patient PRIMARY [...] Review the Mindfulness Skills handouts sent via [facility]. Practice Observe Skills. Next Appointment: 08/05/2020 Lisa Dickens, PhD documented in this encounter Plan of Treatment Upcoming Encounters Date Type Department Care Team (Late st Contact Info) Description 05/23/2024 [place] [address] Lexii Ceja MD [facility] DR [place]STET[place] [address] documented as of this encounter Visit Diagnoses Diagnosis Borderline personality disorder Unspecified mood (affective) disorder documented in this encounter Care Teams Child And Adolescent Psychologist Relationship Specialty Start Date End Date Valencia Adhikari APRN [address] [place] [address] PCP - General 04/21/14 07/04/23 documented as of this encounter
--- OUTSIDE RECORDS SUMMARY | 2024-03-15 15:28 | XMS_ITS | Encounter Summary ---
Author Organization [facility] [place] [address] Care Team Providers Care Grain Roaster Name Role Phone Valencia Adhikari APRN Primary Care Provider +1 -[phone] Reason for Visit * Reason Comments Establish Care Encounter Details Date Type Department Care Team (Late st Contact Info) Description 08/04/2020 10:00 AM EDT Office Visit Obstetrics [place] [phone] Malena Hernandez APRN [facility] OBSTETRICS [place] [address] Encounter for IUD removal (Primary Dx); Screening [...] MONITORING, SETUP performed by JUAN ESPARZA at [facility] MAIN OR ??? PRO THYROIDECTOMY, IVA [place] NECK SURG 03/22/2011 THYROIDECTOMY, FOR MALIGNANCY, LIMITED NECK DISSECTION performed by JUAN ESPARZA at [facility] MAIN OR ??? TONSILLECTOMY 2010 ??? [...] Contact Info) Description 05/23/2024 Hospital [place] [phone] Lexii Ceja MD [facility] DR OBSTETRICS [place] [address] documented as of this encounter Procedures Procedure Name Priority Date/Time Associated Diagnosis Comments CT/NG PCR Routine 08/04/2020 10:25 AM EDT RETAIL DEPARTMENT MANAGER CYTOLOGY INTERPRETATION Routine 08/04/2020 10:25 AM EDT RETAIL DEPARTMENT MANAGER CYTOLOGY FINAL REPORT Routine 08/04/2020 10:25 AM EDT CYTOPATHOLOGY GYNECOLOGICAL Routine 08/04/2020 10:25 AM EDT Screening for cervical cancer documented in this encounter Results * RETAIL DEPARTMENT MANAGER Cytology Interpretation (08/04/2020 10:25 AM EDT) Classification Counselor Cytology Interpretation [facility] Comment:Classification Counselor Cytology Final R eport Endocervical Component Present [facility] AP Specimen 08/04/2020 10:2 5 AM EDT 08/16/2020 12:02 PM EDT Malena Hernandez NET C DEVELOPER PATHOLOGY/CYT OLOGY ORDERABLES [facility] [place] [address] * Classification Counselor Cytology Final Report (08/04/2020 10:25 AM EDT) Classification Counselor Cytology Final Report [id number] ? Location: 5L The signing pathologist has (i) examined the relevant preparation(s) for the specimen(s) and (ii) rendered or confirmed the diagnosis(es). . ? Classification Counselor Final DIAGNOSIS Infection and/or Reactive Repair Process Note: Reactive changes are present in the epithelial cells (benign cellular changes). This Pap test is negative for intraepithelial lesion or malignancy. (NILM) For consensus guidelines for the management of cervical cancer screening test results, please see: ?? http://www.asccp.o rg . Electronically signed by: ?Reji Sandoval MD Verified: ??08/16/2020 12:02 ??Cytopathologist Performed at: ??-[facility] Dept. of Pathology, [place], [place] HPV RESULTS HPV testing either not indicated or not requested by clinician. STATEMENT OF ADEQUACY Specimen submitted is satisfactory. Endocervical component present. CLINICAL INFORMATION HPV Option: ?Reflex HPV CT/NG Option: ?Yes Preparation: ? Liquid based Pap Specimen Source: ? Cervical/Endocervi shira LMP: ? IUD Hysterectomy: ?No : ?No : ?No I.U.D.: ?No Pelvic Radiation: ?No Hist Abnl Pap/Biopsy: ?No Prior RETAIL DEPARTMENT MANAGER Therapy: ? No Hist of HPV Vaccine: ? No ICD Diagnosis: ? Z12.4 Encounter for screening for malignant neoplasm of cervix Clinical Data, Significant Therapy and Clinical Impression ?? : ?_ This Pap Test has been evaluated with the assistance of the [employer] Pap Test Imaging System. Note: The Pap test is a screening test for cervical cancer with an inherent false-negative rate dependent upon several variables. For further information please contact the [facility] Laboratory. Reference: Rosy ORTIZ. Farm Management Agent of Pap Smear Results. In: Chelsey BS, Joshua TAYLOR, ed. The Pap Smear. [place]: Lázaro, 2002: 71-77. [facility] 08/04/2020 10:2 5 AM EDT Malena Hernandez APRN PATHOLOGY/CYT OLOGY ORDERABLES [facility] [place] [address] * CT/NG PCR (08/04/2020 10:25 AM EDT) Chlamydia Gene Amp Negative Negative [facility] Comment: This assay was performed in the [facility] Clinical Genomics and Advanced Technology Laboratory using the melly?? CT/NG v2.0 Test ([employer] The melly?? CT/NG v2.0 Test [...] asymptomatic individuals. GC Gene Amp Negative Negative [facility] Comment: This assay was performed in the [facility] Clinical Genomics and Advanced Technology Laboratory using the melly?? CT/NG v2.0 Test ([employer] The melly?? CT/NG v2.0 Test is [...] APRN MOLECULAR ORD ERABLES Performing Organization Address City/[facility]/ZIP Co de Phone Number [facility] [place] [address] * Cytopathology Gynecological (08/04/2020 10:25 AM EDT) AP Specimen 08/04/2020 10:2 5 AM EDT 08/04/2020 10:25 AM EDT Narrative [facility] - 08/04/2020 10:25 AM EDT Specimen requisition ordered. ??Separate Pathology report to follow Malena Hernandez APRN PATHOLOGY/CYT OLOGY ORDERABLES Performing Organization Address City/[facility]/ZIP Co de Phone Number [facility] [place] [address] documented in this encounter Visit Diagnoses Diagnosis Encounter for IUD removal- Primary Encounter for removal of intrauterine contraceptive device Screening for cervical cancer Screening for malignant neoplasm of the cervix IUD (intrauterine device) in place Presence of intrauterine contraceptive device documented in this encounter Care Teams Grain Roaster Relationship Specialty Start Date End Date Valencia Adhikari APRN [address] [place] [address] PCP - General 04/21/14 07/04/23 documented as of this encounter
--- OUTSIDE RECORDS SUMMARY | 2024-03-15 15:29 | XMS_ITS | Encounter Summary ---
Author Organization Formerly [facility] [place] [address] Care Team Providers Care Physician Surgeon Name Role Phone Valencia Adhikari APRN Primary Care Provider +1 [phone] Encounter Details Date Type Department Care Team (Late st Contact Info) Description 11/21/2017 Notes [place] [phone] Ambika Grande MSW Social History Tobacco Use [...] EDT CCM responded to call from pt's trade mark attorney with question about access to Pain Clinic treatments. CCM reviewed pt chart and noted that pt has not been seen by Pain Clinic and advised caller to have the IW call to make an appointment. documented in this encounter Plan of Treatment Upcoming Encounters Date Type Department Care Team (Late st Contact Info) Description 05/23/2024 Hospital Encounter [place] [address] Lexii Ceja MD [facility] DR OBSTETRICS [place] [address] documented as of this encounter Visit Diagnoses Not on filedocumented in this encounter Care Teams Physician Surgeon Relationship Specialty Start Date End Date Valencia Adhikari APRN [address] [place] [address] PCP - General 04/21/14 07/04/23 documented as of this encounter
--- OUTSIDE RECORDS SUMMARY | 2024-03-15 15:29 | XMS_ITS | Encounter Summary ---
Author Organization [facility] Address [facility] [place] [address] Care Team Providers Care Ring Attacher Name Role Phone Valencia Adhikari APRN Primary Care Provider +1 [phone] Encounter Details Date Type Department Care Team (Late st Contact Info) Description 05/03/2020 10:30 AM EST TH Visit (TeleHealth) Psychiatry [place] [phone] Crispin Fuller MD [facility] [place] [address] Hyperthyroidism Social History Tobacco Use Types Packs/Day [...] Attendee(s): Patient This patient was seen with mineral wool insulation supervisor Dr. Awad. See their note for confirmatory and/or revisionarydocumentation. Andree Hummel gave permission for and was seen for today's appointment with a Telehealth visit. During this visit they were located in [place]. Andree Hummel is aware that for any urgent matter they can call [phone]. Chief Complaint: a lot has been going on History of Present Illness: () (Quality, Severity, Duration, Timing, Context, Modifying factors, Associated S&S) Andree Hummel is a 29 y.o. female with history of depression, anxiety, and hyperthyroidism s/p thyroidectomy presenting for follow-up and medication management. -Reports she has been busy since we last spoke. She lost her job at [employer],and started working at [employer]. Endorses multiple psychosocial stressors including father [...] cats and a dog. 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 Vitals (24hr Range): No data found. Musculoskeletal System: normal gait and balance, ambulates independently and no atrophy Mental Status Exam: ?? Appearance: age appropriate and casually dressed ?? Behavior: cooperative with the interview and calm ?? Speech: normal pitch, normal volume, normal rate and normal rhythm ?? Language: fluent in bengali ?? Mood: not great ?? 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 No suicidal ideation. Having difficulty taking medication consistently. No medication changes today--focus on regular adherence first. Jessica Awad MD documented in this encounter Plan of Treatment Upcoming Encounters Date Type Department Care Team (Late st Contact Info) Description 05/23/2024 [place] [address] Lexii Ceja MD [facility] [address] OBSTETRICS [place] [address] documented as of this encounter Visit Diagnoses Diagnosis Hyperthyroidism Thyrotoxicosis without mention of goiter or other cause, without mention of thyrotoxic crisis or storm documented in this encounter Care Teams Ring Attacher Relationship Specialty Start Date End Date Valencia Adhikari APRN [address] [place] [address] PCP - General 04/21/14 07/04/23 documented as of this encounter
--- OUTSIDE RECORDS SUMMARY | 2024-03-15 15:29 | XMS_ITS | Encounter Summary ---
Author [place] [address] Care Team Providers Care Inventory Planner Name Role Phone Valencia Adhikari APRN Primary Care Provider +1 [phone] Reason for Visit * Reason Onset Date Comments Prior Authorization 12/31/2018 Celecoxib 20 0 mg Prior Authorization 01/02/2019 Request for information from [facility] Encounter Details Date Type Department Care Team (Late st Contact Info) Description 12/31/2018 [place] [address] Geovanna Paredes RN Prior Authorization (Celecoxib 200 mg ); Prior Authorization (Request for information from [facility]) Social History Tobacco Use Types Packs/Day Years [...] EDT PA Request received by fax from [facility] Request for information - documentation to show previous - continuous use of Celebrex Documentation faxed to [facility] # [phone] Awaiting response. * Telephone Encounter - Geovanna Paredes RN - 12/31/2018 4:49 PM EDT Prior Auth Request received from [facility] [address] [place] [address] Celecoxib 200 mg cap - Take 1 capsule by mouth daily. Disp 30 Refill 1 Insurer: [employer] ID: [id number] Provider: Alicia Oviedo APRN Diagnosis: Scapular Dyskinesis - G25.89 Left Shoulder Pain - M25.512 Patient has been effectively using this medication continuously since 11/16/2017. Previously tried: Voltaren Gel - 2017 - Not effective enough. Patient has Physical Therapy & Steroid Injections without relief. [employer] Forms completed, signed and faxed to Dept of [place] [facility] at . Awaiting Response. documented in this encounter Plan of Treatment Upcoming Encounters Date Type Department Care Team (Late st Contact Info) Description 05/23/2024 Hospital [place] [address] Lexii Ceja MD [facility] DR OBSTETRICS [place] [address] documented as of this encounter Visit Diagnoses Not on filedocumented in this encounter Care Teams Inventory Planner Relationship Specialty Start Date End Date Valencia Adhikari APRN [address] [place] [address] PCP - General 04/21/14 07/04/23 documented as of this encounter
--- OUTSIDE RECORDS SUMMARY | 2024-03-15 15:29 | XMS_ITS | Encounter Summary ---
Author Organization [facility] [place] [address] Care Team Providers Care Roentgenologist Name Role Phone OnofreMarilynValencia Oralia SLADE Primary Care Provider +1 [phone] Reason for Visit * Reason Onset Date Comments Medication Refill 12/24/2018 Encounter Details Date Type Department Care Team (Late st Contact Info) Description 12/24/2018 [place] [phone] Alicia Oviedo APRN [facility] [place] [address] Scapular dyskinesis; Left shoulder pain, unspecified chronicity [...] Contact Info) Description 05/23/2024 Hospital [place] [phone] Lexii Ceja MD [facility] OBSTETRICS [place] [address] documented as of this encounter Visit Diagnoses Diagnosis Scapular dyskinesis Lack of coordination Left shoulder pain, unspecified chronicity documented in this encounter Care Teams Roentgenologist Relationship Specialty Start Date End Date Valencia Adhikari APRN [address] [place] [address] PCP - General 04/21/14 07/04/23 documented as of this encounter
--- OUTSIDE RECORDS SUMMARY | 2024-03-15 15:29 | XMS_ITS | Encounter Summary ---
Author Organization [facility] Address [facility] [place] [address] Care Team Providers Care Gasoline Tractor Operator Name Role Phone Valencia Adhikari APRN Primary Care Provider +1 [phone] Reason for Referral * Physical Therapy (Routine) - Specialty Diagnoses / Procedures Referred By Lamont riggins Referred To Contact Physical Therapy Diagnoses Chronic left shoulder pain Scapular dyskinesis Alicia Oviedo APRN [facility] [place] [address] Referral ID Status Reason Start Date Expiration Date V isits Requested Visits Authorized [id number] Evaluate and Treat 09/13/2017 03/12/2018 12 12 Reason for Visit * Reason Comments Left Shoulder Pain WC DOI: 09/06/16 Encounter Details Date Type Department Care Team (Late st Contact Info) Description 09/13/2017 1:55 PM EDT Office [place] [address] Laura Schneider MD [facility] [place] [address] Scapular dyskinesis (Primary Dx); Chronic left shoulder [...] this encounter Progress Notes * Alicia Oviedo, CLOTHING MANAGER - 09/13/2017 1:55 PM EDT This [...] She has been to multiple providers at [facility] for her pain including Dr. Santos, [...] SETUP performed by JUAN ESPARZA at [facility] MAIN OR ??? PRO THYROIDECTOMY, MALIG, LTD NECK SURG 03/22/2011 THYROIDECTOMY, FOR MALIGNANCY, LIMITED NECK DISSECTION performed by JUAN ESPARZA at [facility] MAIN OR ??? TONSILLECTOMY 2010 ??? [...] remain out of work at this time, [facility] RTW forms completed. Voc rehab recommended. Pt agrees, questions solicited/answered, will return as scheduled and as needed for concerns or questions. Pt understands they may also call us prn for above. documented in this encounter Plan of Treatment Upcoming Encounters Date Type Department Care Team (Late st Contact Info) Description 05/23/2024 Hospital En[facility] [place] [address] Lexii Ceja MD [facility] OBSTETRICS [place] [address] Scheduled Referrals Name Type Priority Associated Diagnoses Orde r Schedule Referral to Physical Therapy Outpatient Referral Routine Chronic left shoulder pain Scapular dyskinesis Ordered: 09/13/2017 documented as of this encounter Visit Diagnoses Diagnosis Scapular dyskinesis- Primary Lack of coordination Chronic left shoulder pain Pain in joint, shoulder region documented in this encounter Care Teams Gasoline Tractor Operator Relationship Specialty Start Date End Date Valencia Adhikari APRN [address] [place] [address] PCP - General 04/21/14 07/04/23 documented as of this encounter
--- OUTSIDE RECORDS SUMMARY | 2024-03-15 15:29 | XMS_ITS | Encounter Summary ---
Author Organization [facility]ly [facility] [place] [address] Care Team Providers Care Food Prep Worker Name Role Phone OnofreValencia pitts Oralia SLADE Primary Care Provider +1 -[phone] Encounter Details Date Type Department Care Team (Late st Contact Info) Description 07/21/2019 Orders Only Psychiatry [place] [address] Argelia Mccray APRN [facility] [place] [address] Depression, unspecified depression type; Anxiety Social History [...] Contact Info) Description 05/23/2024 [place] [address] Lexii Ceja MD [facility] DR OBSTET[place]ICS [place] [address] documented as of this encounter Visit Diagnoses Diagnosis Depression, unspecified depression type Anxiety Anxiety state, unspecified documented in this encounter Care Teams Food Prep Worker Relationship Specialty Start Date End Date Valencia Adhikari APRN [address] [place] [address] PCP - General 04/21/14 07/04/23 documented as of this encounter
--- OUTSIDE RECORDS SUMMARY | 2024-03-15 15:29 | XMS_ITS | Encounter Summary ---
Author Organization [facility] Address [facility] [place] [address] Care Team Providers Care Director Of Veterans Affairs Name Role Phone OnofreMarilynValenciaadan Barton APRN Primary Care Provider +1 -[phone] Reason for Visit * Reason Onset Date Comments Medication Refill 03/22/2020 Encounter Details Date Type Department Care Team (Late st Contact Info) Description 03/22/2020 Refill Psychiatry [place] [address] Osmar South RN Depression, unspecified depression type; [...] Info) Description 05/23/2024 Hospital [facility] [place] [address] Lexii Ceja MD [facility] [place] [address] documented as of this encounter Visit Diagnoses Diagnosis Depression, unspecified depression type Anxiety Anxiety state, unspecified documented in this encounter Care Teams Director Of Veterans Affairs Relationship Specialty Start Date End Date Valencia Adhikari APRN [address] [place] [address] PCP - General 04/21/14 07/04/23 documented as of this encounter
--- OUTSIDE RECORDS SUMMARY | 2024-03-15 15:29 | XMS_ITS | Encounter Summary ---
Author Organization Replaced By [facility] Address [facility] [place] [address] Care Team Providers Care Clinical Education Academic Coordinator Name Role Phone Valencia Adhikari APRN Primary Care Provider +1 [phone] Reason for Visit * Reason Comments Bipolar Disorder Encounter Details Date Type Department Care Team (Late st Contact Info) Description 11/08/2017 8:00 AM EDT Office Visit Psychiatry [place] [phone] Argelia Mccray THREAD INSPECTOR [facility] [place] [address] Depression, unspecified depression type; Anxiety Social History [...] in this encounter Progress Notes * MichaeldelilahArgelia, THREAD INSPECTOR - 11/08/2017 8:00 AM EDT ESTABLISHED ADULT [...] Sunday and has been hospitalized at [facility]. Andree states she and her father do [...] and normal rhythm ?? Language: fluent in palestinian ?? Mood: Anxious ?? Affect: mood-congruent ?? [...] abuse) or ifrecords are subpoenaed by a machine operator general. We also discussed that notes can be read by other clinicians andstaff involved in the patient's care. Argelia Mccray APRN 11/08/2017 documented in this encounter Plan of Treatment Upcoming Encounters Date Type Department Care Team (Late st Contact Info) Description 05/23/2024 Hospital [place] [address] Lexii Ceja MD [facility] DR [place] [address] documented as of this encounter Visit Diagnoses Diagnosis Depression, unspecified depression type Anxiety Anxiety state, unspecified documented in this encounter Care Teams Clinical Education Academic Coordinator Relationship Specialty Start Date End Date Valencia Adhikari APRN [address] [place] [address] PCP - General 04/21/14 07/04/23 documented as of this encounter
--- OUTSIDE RECORDS SUMMARY | 2024-03-15 15:29 | XMS_ITS | Encounter Summary ---
Author Organization Formerly [facility] Address [facility] [place] [address] Care Team Providers Care Certified Vehicle Fire Investigator Name Role Phone Valencia Adhikari APRN Primary Care Provider +1 [phone] Encounter Details Date Type Department Care Team (Late st Contact Info) Description 04/19/2020 Telephone Psychiatry and [place] [address] Lisa Dickens, PhD [facility] [place] [address] Social History Tobacco Use Types Packs/Day Years [...] me) Plan: Patient can contact schedulers at [phone] to reschedule if she is still interested in anevaluation or psychotherapy through the Psychiatry Department. documented in this encounter Plan of Treatment Upcoming Encounters Date Type Department Care Team (Late st Contact Info) Description 05/23/2024 Hospital [place] [phone] Lexii Ceja MD [facility] DR OBSTETRICS [place] [address] documented as of this encounter Visit Diagnoses Diagnosis Unspecified mood (affective) disorder documented in this encounter Care Teams Certified Vehicle Fire Investigator Relationship Specialty Start Date End Date Valencia Adhikari APRN [address] [place] [address] PCP - General 04/21/14 07/04/23 documented as of this encounter
--- OUTSIDE RECORDS SUMMARY | 2024-03-15 15:29 | XMS_ITS | Encounter Summary ---
Author Organization [facility] Address [facility] [place] [address] Care Team Providers Care Golf Club Facer Name Role Phone OnofreMarilyn pittshryn Oralia SLADE Primary Care Provider +1 -[phone] Reason for Visit * Reason Onset Date Comments Medication Refill 03/16/2020 Encounter Details Date Type Department Care Team (Late st Contact Info) Description 03/16/2020 Refill Psychiatry [place] [address] Osmar South RN Anxiety; Depression, unspecified depression [...] Description 05/23/2024 Hospital Encounter [facility] [place] [address] [facility] OBSTETRICS [place] [address] documented as of this encounter Visit Diagnoses Diagnosis Anxiety Anxiety state, unspecified Depression, unspecified depression type documented in this encounter Care Teams Golf Club Facer Relationship Specialty Start Date End Date Valencia Adhikari APRN [address] [place] [address] PCP - General 04/21/14 07/04/23 documented as of this encounter
--- OUTSIDE RECORDS SUMMARY | 2024-03-15 15:29 | XMS_ITS | Encounter Summary ---
Author Organization [facility], Located Within [facility] [place] [address] Care Team Providers Care Finisher Brush Name Role Phone OnofreValencia pitts Oralia SLADE Primary Care Provider +1 -[phone] Encounter Details Date Type Department Care Team (Late st Contact Info) Description 02/22/2018 Orders Only Psychiatry and [place]al [place] [address] Argelia Mccray APRN [facility] [place] [address] Depression, unspecified depression type; Anxiety Social History [...] 05/23/2024 Hospital Encounter [facility] [place] [address] Lexii Ceja MD [facility] [address] OBST[place] [address] documented as of this encounter Visit Diagnoses Diagnosis Depression, unspecified depression type Anxiety Anxiety state, unspecified documented in this encounter Care Teams Finisher Brush Relationship Specialty Start Date End Date Valencia Adhikari APRN [address] [place] [address] PCP - General 04/21/14 07/04/23 documented as of this encounter
--- OUTSIDE RECORDS SUMMARY | 2024-03-15 15:29 | XMS_ITS | Encounter Summary ---
Author Organization [facility] Address [facility] [place] [address] Care Team Providers Care Copy Lathe Tender Name Role Phone Valencia Adhikari APRN Primary Care Provider +1 -[phone] Encounter Details Date Type Department Care Team (Late st Contact Info) Description 05/14/2020 Telephone Psychiatry [place] [address] Crispin Fuller MD [facility] [place] [address] Social History Tobacco Use Types Packs/Day Years [...] continue with the process to go to [facility] for therapy. She requested options to consider [...] Description 05/23/2024 Hospital [place] [address] Lexii Ceja MD [facility] DR OBSTETRICS [place] [address] documented as of this encounter Visit Diagnoses Not on filedocumented in this encounter Care Teams Copy Lathe Tender Relationship Specialty Start Date End Date Valencia Adhikari APRN [address] [place] [address] PCP - General 04/21/14 07/04/23 documented as of this encounter
--- OUTSIDE RECORDS SUMMARY | 2024-03-15 15:29 | XMS_ITS | Encounter Summary ---
Author Organization Formerly [facility] [place] [address] Care Team Providers Care Medical Records Administrator Name Role Phone OnofreMarilynValencia Oralia SLADE Primary Care Provider +1 -[phone] Reason for Visit * Reason Onset Date Comments Medication Refill 10/26/2018 Encounter Details Date Type Department Care Team (Late st Contact Info) Description 10/26/2018 Refill Psychiatry [place] [address] Argelia Mccray APRN [facility] [place] [address] Depression, unspecified depression type; Anxiety Social History [...] Contact Info) Description 05/23/2024 Hospital [place] [address] Lexii Ceja MD [facility] DR OBSTETRICS [place] [address] documented as of this encounter Visit Diagnoses Diagnosis Depression, unspecified depression type Anxiety Anxiety state, unspecified documented in this encounter Care Teams Medical Records Administrator Relationship Specialty Start Date End Date Valencia Adhikari APRN [address] [place] [address] PCP - General 04/21/14 07/04/23 documented as of this encounter
--- OUTSIDE RECORDS SUMMARY | 2024-03-15 15:29 | XMS_ITS | Encounter Summary ---
Author Organization [facility] Address [facility] [place] [address] Care Team Providers Care Call Center Trainer Name Role Phone OnofreMarilyn pittshrryan Barton BER[place] Primary Care Provider +1 -[phone] Reason for Visit * Reason Onset Date Comments Medication Refill 04/22/2020 Encounter Details Date Type Department Care Team (Late st Contact Info) Description 04/22/2020 Refill Psychiatry [place] [address] Crispin Fuller MD [facility] [place] [address] Depression, unspecified depression type; Anxiety Social History [...] Contact Info) Description 05/23/2024 Hospital [place] [address] Lexii Ceja MD [facility] OBSTETRICS AND GYNECOLOGY [place], [place] [address] documented as of this encounter Visit Diagnoses Diagnosis Depression, unspecified depression type Anxiety Anxiety state, unspecified documented in this encounter Care Teams Call Center Trainer Relationship Specialty Start Date End Date Valencia Adhikari APRN [address] [place] [address] PCP - General 04/21/14 07/04/23 documented as of this encounter
--- OUTSIDE RECORDS SUMMARY | 2024-03-15 15:29 | XMS_ITS | Encounter Summary ---
Author Organization [facility] Address [facility] [place] [address] Care Team Providers Care See Wheeler Name Role Phone Valencia Adhikari B[place] Primary Care Provider +1 -[phone] Encounter Details Date Type Department Care Team (Late st Contact Info) Description 01/28/2018 11:59 PM EDT Anesthesia Event [place] [phone] Harsha Pérez MD [facility] [place] [address] Anesthesia Record Procedure Summary Procedure Name Responsible [...] Contact Info) Description 05/23/2024 Hospital [place] [address] Lexii Ceja MD [facility] [address] OBSTET[place] [address] documented as of this encounter Visit Diagnoses Not on filedocumented in this encounter Care Teams See Wheeler Relationship Specialty Start Date End Date Valencia Adhikari APRN [address] [place] [address] PCP - General 04/21/14 07/04/23 documented as of this encounter
--- OUTSIDE RECORDS SUMMARY | 2024-03-15 15:29 | XMS_ITS | Encounter Summary ---
Author Organization [facility] Address [facility] [place] [address] Care Team Providers Care Vacuum Cleaner Repair Person Name Role Phone Valencia Adhikari APRN Primary Care Provider +1 -[phone] Reason for Referral * Consultation (Routine) - Closed Specialty Diagnoses / Procedures Referred By Lamont riggins Referred To Contact Pain Management Diagnoses Scapular dyskinesis Alicia Oviedo APRN [facility] [place] [address] [facility] [address] [place] [address] Referral ID Status Reason Start Date Expiration Date V isits Requested Visits Authorized [id number] Closed Consult, Test & Treat 11/16/2017 11/16/2018 1 1 Reason for Visit * Reason Comments Left Shoulder Pain workers comp DOI Encounter Details Date Type Department Care Team (Late st Contact Info) Description 11/16/2017 10:20 AM EDT Office [place] [address] Alicia Oviedo APRN [facility] [place] [address] Scapular dyskinesis (Primary Dx); Chronic [...] this encounter Progress Notes * Alicia Oviedo, LANCE CREWMEMBER - 11/16/2017 10:20 AM EDT Chief complaint: chronic work related LEFT shoulder pain Problem List Items Addressed This Visit Chronic left shoulder pain Scapular dyskinesis Work Related : YES DOI: 09/06/2017 [facility] of present [facility] 27 y.o. year-old female is [...] she may need to consider a functional taoism program and alternate vocation. Pt agrees, questions [...] Contact Info) Description 05/23/2024 Hospital [place] [address] Lexii Ceja MD [facility] DR OBSTETRICS [place] [address] Scheduled Referrals Name Type Priority Associated Diagnoses Orde r Schedule Referral to Pain Clinic Outpatient Referral Routine Scapular dyskinesis Ordered: 11/16/2017 documented as of this encounter Visit Diagnoses Diagnosis Scapular dyskinesis- Primary Lack of coordination Chronic left shoulder pain Pain in joint, shoulder region documented in this encounter Care Teams Vacuum Cleaner Repair Person Relationship Specialty Start Date End Date Valencia Adhikari APRN [address] [place] [address] PCP - General 04/21/14 07/04/23 documented as of this encounter
--- OUTSIDE RECORDS SUMMARY | 2024-03-15 15:29 | XMS_ITS | Encounter Summary ---
Author Organization [facility] [place] [address] Care Team Providers Care Rn Assessment Name Role Phone OnofreValencia Oralia SLADE Primary Care Provider +1 -[phone] Encounter Details Date Type Department Care Team (Late st Contact Info) Description 07/16/2019 Orders Only Psychiatry [place] [address] Argelia Mccray APRN [facility] [place] [address] Anxiety Social History Tobacco Use Types Packs/Day [...] Contact Info) Description 05/23/2024 Hospital [place] [address] Lexii Ceja MD [facility] DR OBSTETRICS [place] [address] documented as of this encounter Visit Diagnoses Diagnosis Anxiety Anxiety state, unspecified documented in this encounter Care Teams Rn Assessment Relationship Specialty Start Date End Date Valencia Adhikari APRN [address] [place] [address] PCP - General 04/21/14 07/04/23 documented as of this encounter
--- OUTSIDE RECORDS SUMMARY | 2024-03-15 15:29 | XMS_ITS | Encounter Summary ---
[place] [address] Care Team Providers Care Distribution Estimator Name Role Phone Valencia Adhikari APRN Primary Care Provider +1 -[phone] Encounter Details Date Type Department Care Team (Late st Contact Info) Description 02/05/2018 Telephone [place] [address] Negar Wilkes Social History Tobacco [...] come in. She does not have a local city driver that day. documented in this encounter Plan of Treatment Upcoming Encounters Date Type Department Care Team (Late st Contact Info) Description 05/23/2024 Hospital [place] [address] Lexii Ceja MD [facility] OBSTETRICS [place] [address] documented as of this encounter Visit Diagnoses Not on filedocumented in this encounter Care Teams Distribution Estimator Relationship Specialty Start Date End Date Valencia Adhikari APRN [address] [place] [address] PCP - General 04/21/14 07/04/23 documented as of this encounter
--- OUTSIDE RECORDS SUMMARY | 2024-03-15 15:29 | XMS_ITS | Encounter Summary ---
Author Organization Count Includes [facility] Address [facility] [place] [address] Care Team Providers Care Sweatband Cutting Machine Operator Name Role Phone Valencia Adhikari APRN Primary Care Provider +1 -[phone] Encounter Details Date Type Department Care Team (Late st Contact Info) Description 05/07/2020 Telephone Psychiatry [place] [address] Mary Bateman Social History Tobacco [...] Contact Info) Description 05/23/2024 Hospital [place] [address] Lexii Ceja MD [facility] OBSTETRICS [place] [address] documented as of this encounter Visit Diagnoses Not on filedocumented in this encounter Care Teams Sweatband Cutting Machine Operator Relationship Specialty Start Date End Date Valencia Adhikari APRN [address] [place] [address] PCP - General 04/21/14 07/04/23 documented as of this encounter
--- OUTSIDE RECORDS SUMMARY | 2024-03-15 15:29 | XMS_ITS | Encounter Summary ---
Author Organization [facility] Address [facility] [place] [address] Care Team Providers Care Keyboard Instrument Tuner Name Role Phone OnofreMarilynValencia Oralia SLADE Primary Care Provider +1 -[phone] Reason for Visit * Reason Onset Date Comments Medication Refill 01/31/2018 Encounter Details Date Type Department Care Team (Late st Contact Info) Description 01/31/2018 Refill Psychiatry [place] [address] Osmar South RN Depression, unspecified depression type; [...] Contact Info) Description 05/23/2024 Hospital Encounter Birthing [place] [address] Lexii Ceja MD [facility] OBSTETRICS [place] [address] documented as of this encounter Visit Diagnoses Diagnosis Depression, unspecified depression type Anxiety Anxiety state, unspecified documented in this encounter Care Teams Keyboard Instrument Tuner Relationship Specialty Start Date End Date Valencia Adhikari APRN [address] [place] [address] PCP - General 04/21/14 07/04/23 documented as of this encounter
--- OUTSIDE RECORDS SUMMARY | 2024-03-15 15:29 | XMS_ITS | Encounter Summary ---
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 Language: fluent in spanish ?? Mood: Anxious ?? Affect: mood-congruent and [...] reviewed the resource Psychology Today and this screen writer will plan to send the client some options. MEDICAL DECISION MAKING WORKING DIAGNOSIS Anxiety disorder unspecified Depressive disorder/Mood disorder DDx: Bipolar disorder CURRENT ASSESSMENT: 27 year old with hypothyroidism, intractable chronic migraine, and mood disorder who continues to be seen at [facility] for medication management. Today, Andree's [...] abuse) or ifrecords are subpoenaed by a court of appeals judge. We also discussed that notes can be read by other clinicians andstaff involved in the patient's care. Argelia Mccray APRN 03/21/2018 documented in this encounter Plan of Treatment Upcoming Encounters Date Type Department Care Team (Late st Contact Info) Description 05/23/2024 [place] [address] Lexii Ceja MD [facility] DR [place] [address] documented as of this encounter Visit Diagnoses Diagnosis Anxiety Anxiety state, unspecified documented in this encounter Care Teams Glycerin Supervisor Relationship Specialty Start Date End Date Valencia Adhikari APRN [address] [place] [address] PCP - General 04/21/14 07/04/23 documented as of this encounter
--- OUTSIDE RECORDS SUMMARY | 2024-03-15 15:29 | XMS_ITS | Encounter Summary ---
Author Organization [facility] [place] [address] Care Team Providers Care Sheet Manufacturing Supervisor Name Role Phone OnofreMarilynValenciaadan Barton APRN Primary Care Provider +1 -[phone] Reason for Visit * Reason Onset Date Comments Medication Refill 04/27/2019 Encounter Details Date Type Department Care Team (Late st Contact Info) Description 04/27/2019 Refill Psychiatry [place] [address] Argelia Mccray APRN [facility] [place] [address] Anxiety Social History Tobacco Use Types Packs/Day [...] Contact Info) Description 05/23/2024 Hospital Encounter [place] [address] Lexii Ceja MD [facility] DR OBSTETRICS [place] [address] documented as of this encounter Visit Diagnoses Diagnosis Anxiety Anxiety state, unspecified documented in this encounter Care Teams Sheet Manufacturing Supervisor Relationship Specialty Start Date End Date Valencia Adhikari APRN [address] [place] [address] PCP - General 04/21/14 07/04/23 documented as of this encounter
--- OUTSIDE RECORDS SUMMARY | 2024-03-15 15:29 | XMS_ITS | Encounter Summary ---
Author Organization [facility] [place] [address] Care Team Providers Care Factory Clerk Name Role Phone OnofreValencia pitts BER[place] Primary Care Provider +1 -[phone] Encounter Details Date Type Department Care Team (Late st Contact Info) Description 01/28/2018 Telephone [place] [address] Martínez Knight Social History Tobacco [...] Contact Info) Description 05/23/2024 Hospital [place] [address] Lexii Ceja MD [facility] [place] [address] documented as of this encounter Visit Diagnoses Not on filedocumented in this encounter Care Teams Factory Clerk Relationship Specialty Start Date End Date Valencia Adhikari APRN [address] [place] [address] PCP - General 04/21/14 07/04/23 documented as of this encounter
--- OUTSIDE RECORDS SUMMARY | 2024-03-15 15:29 | XMS_ITS | Encounter Summary ---
Author Organization [facility] Address [facility] [place] [address] Care Team Providers Care Shear Operator Name Role Phone Richard Rasheed MD Primary Care Provider [phone] Reason for Visit * Reason Onset Date Comments Medication Refill 09/02/2018 Encounter Details Date Type Department Care Team (Late st Contact Info) Description 09/02/2018 Refill Psychiatry [place] [address] Argelia Mccray APRN [facility] [place] [address] Anxiety Social History Tobacco Use Types Packs/Day [...] Contact Info) Description 05/23/2024 [facility] [place] [address] Lexii Ceja MD [facility] DR OBSTETRICS [place] [address] documented as of this encounter Visit Diagnoses Diagnosis Anxiety Anxiety state, unspecified documented in this encounter Care Teams Shear Operator Relationship Specialty Start Date End Date Richard Rasheed MD [address] [place] [address] PCP - General Family Medicine 07/05/23 documented as of this encounter
--- OUTSIDE RECORDS SUMMARY | 2024-03-15 15:29 | XMS_ITS | Encounter Summary ---
Author Organization [facility] [place] [address] Care Team Providers Care Polygraph Technician Name Role Phone Valencia Adhikari APRN Primary Care Provider [phone] [phone] Encounter Details Date Type Department Care Team (Late st Contact Info) Description 08/22/2018 8:00 AM EDT Office Visit Psychiatry [place] [address] Argelia Mccray KNITTED GARMENT FINISHER [facility] [place] [address] Depression, unspecified depression type; Anxiety Social History [...] this encounter Progress Notes * Argelia Mccray, KNITTED GARMENT FINISHER - 08/22/2018 8:00 AM EDT ESTABLISHED ADULT [...] abnormalities Social History: 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 Language: fluent in german ?? Mood: depressed ?? Affect: mood-congruent ?? [...] HA1C Vit Lvls: No results found for: NHHXPOIS28, SFOLATE Tox: No results found for: ETHANOL, ACTMNPHEN, SALICYLATE, LEAD No results found for: UDAUSCREEN Rx Lvls: Lamotrigine Lvl Date Value Ref Range Status 07/04/2018 3.2 2.5 - 15.0 mcg/mL Final Comment: ADDITIONAL INFORMATION This test was developed and its performance characteristics determined by [facility] in a manner consistent with CLIA requirements. This test has not been cleared or approved by the U.S. Food and Drug Administration. Test Performed by: [facility] [address] [place] [address] Formulation and Assessment: Overall Formulation: Andree Hummel [...] Contact Info) Description 05/23/2024 Hospital Encounter Birthing [facility] [place] [address] Lexii Ceja MD [facility] DR OBSTETRICS [place] [address] documented as of this encounter Visit Diagnoses Diagnosis Depression, unspecified depression type Anxiety Anxiety state, unspecified documented in this encounter Care Teams Polygraph Technician Relationship Specialty Start Date End Date Valencia Adhikari APRN [address] [place] [address] PCP - General 04/21/14 07/04/23 documented as of this encounter
--- OUTSIDE RECORDS SUMMARY | 2024-03-15 15:29 | XMS_ITS | Encounter Summary ---
Author Organization [facility] [place] [address] Care Team Providers Care Gill Box Operator Name Role Phone Valencia Adhikari APRN Primary Care Provider +1 [phone] Reason for Visit * Reason Comments Follow-up Workers comp needs u pdate Encounter Details Date Type Department Care Team (Late st Contact Info) Description 10/15/2017 1:30 PM EDT Office [place] [address] Alicia Oviedo RAIL TRANSIT OPERATOR [facility] DR [place] [address] Chronic left shoulder pain; Scapular dyskinesis Social [...] encounter Progress Notes * Preet Alicia A, RAIL TRANSIT OPERATOR - 10/15/2017 1:30 PM EDT Chief complaint: [...] 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 [facility] RTW forms completed. Pt agrees, questions solicited/answered, [...] Contact Info) Description 05/23/2024 Hospital [place] [address] Lexii Ceja MD [facility] DR OBSTETRICS [place] [address] documented as of this encounter Visit Diagnoses Diagnosis Chronic left shoulder pain Pain in joint, shoulder region Scapular dyskinesis Lack of coordination documented in this encounter Care Teams Gill Box Operator Relationship Specialty Start Date End Date Valencia Adhikari APRN [address] [place] [address] PCP - General 04/21/14 07/04/23 documented as of this encounter
--- OUTSIDE RECORDS SUMMARY | 2024-03-15 15:29 | XMS_ITS | Encounter Summary ---
Author Organization [facility] [place] [address] Care Team Providers Care Contract Administration Coordinator Name Role Phone OnofreMarilynValencia Oralia SLADE Primary Care Provider [phone] [phone] Reason for Visit * Reason Onset Date Comments Medication Refill 10/26/2018 Encounter Details Date Type Department Care Team (Late st Contact Info) Description 10/26/2018 Refill [place] [address] Alicia Oviedo APRN [facility] [place] [address] Left shoulder pain, unspecified chronicity Social History [...] Contact Info) Description 05/23/2024 Hospital [place] [address] Lexii Ceja MD [facility] DR OBSTET[place] [address] documented as of this encounter Visit Diagnoses Diagnosis Left shoulder pain, unspecified chronicity documented in this encounter Care Teams Contract Administration Coordinator Relationship Specialty Start Date End Date Valencia Adhikari APRN [address] [place] [address] PCP - General 04/21/14 07/04/23 documented as of this encounter
--- OUTSIDE RECORDS SUMMARY | 2024-03-15 15:29 | XMS_ITS | Encounter Summary ---
Author Organization [facility] Address [facility] [place] [address] Care Team Providers Care Tourism Radio Presenter Name Role Phone Valencia Adhikari APRN Primary Care Provider +1 -[phone] Reason for Visit * Consultation (Routine) - Closed Specialty Diagnoses / Procedures Referred By Lamont riggins Referred To Contact Gastroenterology Diagnoses IRREGULAR BOWEL HABITS Valencia Adhikari APRN [address] [place] [address] [facility] [address] [place] [address] Referral ID Status Reason Start Date Expiration Date V isits Requested Visits Authorized [id number] Closed Consult, Test & Treat [facility] 09/11/2017 09/11/2018 1 1 Encounter Details Date Type Department Care Team (Late st Contact Info) Description 10/16/2017 10:00 AM EDT Office [place] [phone] Elinor Fisher [place] [facility] [place] [address] Abdominal bloating; Diarrhea, unspecified type; IgA deficiency [...] EGD and colonoscopy done (she thinks in [place]) around age 17 (I do not have [...] MONITORING, SETUP performed by JUAN ESPARZA at [facility] MAIN OR ??? PRO THYROIDECTOMY, NYDIA, [facility] NECK SURG 03/22/2011 THYROIDECTOMY, FOR MALIGNANCY, LIMITED NECK DISSECTION performed by JUAN ESPARZA at [facility] MAIN OR ??? TONSILLECTOMY 2010 ??? [...] Fisher PA-C Section of Gastroenterology [place] [address] documented in this encounter Plan of Treatment Upcoming Encounters Date Type Department Care Team (Late st Contact Info) Description 05/23/2024 Hospital [place] [address] Lexii Ceja MD [facility] DR OBSTETRICS [place] [address] documented as of this encounter Visit Diagnoses Diagnosis Abdominal bloating Flatulence, eructation, and gas pain Diarrhea, unspecified type IgA deficiency Selective IgA immunodeficiency documented in this encounter Care Teams Tourism Radio Presenter Relationship Specialty Start Date End Date Valencia Adhikari APRN [address] [place] [address] PCP - General 04/21/14 07/04/23 documented as of this encounter
--- OUTSIDE RECORDS SUMMARY | 2024-03-15 15:29 | XMS_ITS | Encounter Summary ---
Author Organization [facility] [place] [address] Care Team Providers Care Chief Wharfinger Name Role Phone OnofreMarilynValencia Oralia SLADE Primary Care Provider +1 [phone] Reason for Visit * Reason Onset Date Comments Medication Refill 09/13/2017 Encounter Details Date Type Department Care Team (Late st Contact Info) Description 09/13/2017 Refill Psychiatry [place] [phone] Argelia Mccray APRN [facility] [address] Depression, unspecified depression type Social History Tobacco [...] Contact Info) Description 05/23/2024 Hospital [place] [phone] Lexii Ceja MD [facility] DR OBSTET[place] [address] documented as of this encounter Visit Diagnoses Diagnosis Depression, unspecified depression type documented in this encounter Care Teams Chief Wharfinger Relationship Specialty Start Date End Date Valencia Adhikari APRN [address] [place] [address] PCP - General 04/21/14 07/04/23 documented as of this encounter
--- OUTSIDE RECORDS SUMMARY | 2024-03-15 15:29 | XMS_ITS | Encounter Summary ---
Author Organization [facility] [place] [address] Care Team Providers Care Safety And Health Consultant Name Role Phone OnofreValencia pitts Oralia SLADE Primary Care Provider +1 -[phone] Encounter Details Date Type Department Care Team (Late st Contact Info) Description 10/03/2018 Orders Only Psychiatry [place] [phone] Argelia Mccray APRN [facility] [place] [address] Anxiety Social History Tobacco Use Types Packs/Day [...] Contact Info) Description 05/23/2024 Hospital [place] [phone] Lexii Ceja MD [facility] [address] [place] [address] documented as of this encounter Visit Diagnoses Diagnosis Anxiety Anxiety state, unspecified documented in this encounter Care Teams Safety And Health Consultant Relationship Specialty Start Date End Date Valencia Adhikari APRN [address] [place] [address] PCP - General 04/21/14 07/04/23 documented as of this encounter
--- OUTSIDE RECORDS SUMMARY | 2024-03-15 15:29 | XMS_ITS | Encounter Summary ---
Author Organization [facility] Address [facility] [place] [address] Care Team Providers Care Analysis Consultant Name Role Phone OnofreValencia pitts [place] Primary Care Provider +1 -[phone] Reason for Visit * Reason Onset Date Comments Medication Refill 03/19/2020 Encounter Details Date Type Department Care Team (Late st Contact Info) Description 03/19/2020 Refill Psychiatry [place] [address]1000 Crispin Fuller MD [facility] [place] [address] Depression, unspecified depression type; Anxiety Social History [...] Contact Info) Description 05/23/2024 Hospital [place] [address] Lexii Ceja MD [facility] [address] OBSTETRICS AND GYNECOLOGY [place], [place] [id number] documented as of this encounter Visit Diagnoses Diagnosis Depression, unspecified depression type Anxiety Anxiety state, unspecified documented in this encounter Care Teams Analysis Consultant Relationship Specialty Start Date End Date Valencia Adhikari APRN [address] [place] [address] PCP - General 04/21/14 07/04/23 documented as of this encounter
--- OUTSIDE RECORDS SUMMARY | 2024-03-15 15:29 | XMS_ITS | Encounter Summary ---
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 Language: fluent in dutch ?? Mood: anxious ?? Affect: mood-congruent ?? [...] - 10.8 mcg/dL Final Comment: Reference Range: Toponas Cord Blood: 6.9-14.4 mcg/dL Females: 7.2-14.2 mcg/dL Pediatric ranges: Interpret with caution-ranges have not been verified Free T4 Date Value Ref Range Status 07/04/2018 1.15 0.93 - 1.70 ng/dL Final Lipids and HgbA1C: No results found for: CHLPL, HDL, CHOLHDL, LDLCHOL, LDLDIRECT, TRIG No results found for: HA1C Vit Lvls: No results found for: IFFHYLDQ81, SFOLATE Tox: No results found for: ETHANOL, ACTMNPHEN, SALICYLATE, LEAD No results found for: UDAUSCREEN Rx Lvls: Lamotrigine Lvl Date Value Ref Range Status 07/04/2018 3.2 2.5 - 15.0 mcg/mL Final Comment: ADDITIONAL INFORMATION This test was developed and its performance characteristics determined by [facility] in a manner consistent with CLIA requirements. This test has not been cleared or approved by the U.S. Food and Drug Administration. Test Performed by: [facility] [address] [place] [address] Formulation and Assessment: Overall Formulation: Andree Hummel [...] how it is not meant for terminal operator use. Brooklynn voices her understanding and states that she does not want to be on this medication residential. Since being on the medication she has [...] Contact Info) Description 05/23/2024 Hospital [place] [address] Lexii Ceja MD [facility] DR OBSTETRICS [place] [address] documented as of this encounter Visit Diagnoses Diagnosis Anxiety Anxiety state, unspecified Depression, unspecified depression type documented in this encounter Care Teams Radar Engineer Relationship Specialty Start Date End Date Valencia Adhikari APRN [address] [place] [address] PCP - General 04/21/14 07/04/23 documented as of this encounter
--- OUTSIDE RECORDS SUMMARY | 2024-03-15 15:29 | XMS_ITS | Encounter Summary ---
Author Organization [facility] [place] [address] Care Team Providers Care Airport Maintenance Chief Name Role Phone Valencia Adhikari APRN Primary Care Provider [phone] [phone] Encounter Details Date Type Department Care Team (Late st Contact Info) Description 10/03/2018 Telephone Psychiatry [place] [address] Argelia Mccray APRN [facility] [place] [address] Social History Tobacco Use Types Packs/Day Years [...] Info) Description 05/23/2024 [facility] [place] [address] Lexii Ceja MD [facility] OBSTET[place] [address] documented as of this encounter Visit Diagnoses Not on filedocumented in this encounter Care Teams Airport Maintenance Chief Relationship Specialty Start Date End Date Valencia Adhikari APRN [address] [place] [address] PCP - General 04/21/14 07/04/23 documented as of this encounter
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
--- OUTSIDE RECORDS SUMMARY | 2024-03-15 15:29 | XMS_ITS | Encounter Summary ---
Author Organization [facility] Address [facility] [place] [address] Care Team Providers Care Certified Genetic Counselor Name Role Phone OnofreMarilynValenciaadan Barton APRN Primary Care Provider +1 -[phone] Reason for Visit * Reason Onset Date Comments Medication Refill 08/02/2018 Encounter Details Date Type Department Care Team (Late st Contact Info) Description 08/02/2018 Refill Psychiatry [place] [address] Osmar South RN Anxiety Social [...] Contact Info) Description 05/23/2024 [place] [address] Lexii Ceja MD [facility] OBSTETRICS [place] [address] documented as of this encounter Visit Diagnoses Diagnosis Anxiety Anxiety state, unspecified documented in this encounter Care Teams Certified Genetic Counselor Relationship Specialty Start Date End Date Valencia Adhikari APRN [address] [place] [address] PCP - General 04/21/14 07/04/23 documented as of this encounter
--- OUTSIDE RECORDS SUMMARY | 2024-03-15 15:29 | XMS_ITS | Encounter Summary ---
Author Organization [facility] [place] [address] Care Team Providers Care Hazmat Cdl Driver Name Role Phone OnofreValencia pitts Oralia SLADE Primary Care Provider +1 -[phone] Encounter Details Date Type Department Care Team (Late st Contact Info) Description 10/28/2018 Orders Only Psychiatry [place] [address] Argelia Mccray APRN [facility] [place] [address] Anxiety Social History Tobacco Use Types Packs/Day [...] Contact Info) Description 05/23/2024 [place] [address] Lexii Ceja MD [facility] [address] OBSTET[place] [address] documented as of this encounter Visit Diagnoses Diagnosis Anxiety Anxiety state, unspecified documented in this encounter Care Teams Hazmat Cdl Driver Relationship Specialty Start Date End Date Valencia Adhikari APRN [address] [place] [address] PCP - General 04/21/14 07/04/23 documented as of this encounter
--- OUTSIDE RECORDS SUMMARY | 2024-03-15 15:29 | XMS_ITS | Encounter Summary ---
Author Organization [facility] [place] [address] Care Team Providers Care Retail Gift Card Merchandising Name Role Phone Valencia Adhikari APRN Primary Care Provider +1 [phone] Encounter Details Date Type Department Care Team (Late st Contact Info) Description 11/14/2017 Telephone Psychiatry [place] [address] Argelia Mccray APRN [facility] [place] [address] Social History Tobacco Use Types Packs/Day Years [...] Contact Info) Description 05/23/2024 Hospital [facility] [address] Lexii Ceja MD [facility] [address] OBSTETRICS [place] [address] documented as of this encounter Visit Diagnoses Not on filedocumented in this encounter Care Teams Retail Gift Card Merchandising Relationship Specialty Start Date End Date Valencia Adhikari APRN [address] [place] [address] PCP - General 04/21/14 07/04/23 documented as of this encounter
--- OUTSIDE RECORDS SUMMARY | 2024-03-15 15:29 | XMS_ITS | Encounter Summary ---
Author Organization [facility] [place] [address] Care Team Providers Care Supervisor Rose Grading Name Role Phone OnofreMarilynValenciaadan Barton APRN Primary Care Provider +1 -[phone] Reason for Visit * Reason Onset Date Comments Medication Refill 10/13/2019 Encounter Details Date Type Department Care Team (Late st Contact Info) Description 10/13/2019 Refill Psychiatry [place] [address] Argelia Mccray APRN [facility] [place] [address] Depression, unspecified depression type Social History Tobacco [...] Contact Info) Description 05/23/2024 [place] [address] Lexii Ceja MD [facility] DR OBSTETRICS [place] [address] documented as of this encounter Visit Diagnoses Diagnosis Depression, unspecified depression type documented in this encounter Care Teams Supervisor Rose Grading Relationship Specialty Start Date End Date Valencia Adhikari APRN [address] [place] [address] PCP - General 04/21/14 07/04/23 documented as of this encounter
--- OUTSIDE RECORDS SUMMARY | 2024-03-15 15:29 | XMS_ITS | Encounter Summary ---
Author Organization [facility] Address [facility] [place] [address] Care Team Providers Care Scrubber Operator Name Role Phone Valencia Adhikari APRN Primary Care Provider +1 -[phone] Encounter Details Date Type Department Care Team (Late st Contact Info) Description 05/06/2020 Telephone Psychiatry and Behavioral [place] [address] Flora Lyon [facility] [place] [address] Social History Tobacco Use Types Packs/Day Years [...] Contact Info) Description 05/23/2024 [place] [address] Lexii Ceja MD [facility] OBSTETRICS [place] [address] documented as of this encounter Visit Diagnoses Not on filedocumented in this encounter Care Teams Scrubber Operator Relationship Specialty Start Date End Date Valencia Adhikari APRN [address] [place] [address] PCP - General 04/21/14 07/04/23 documented as of this encounter
--- OUTSIDE RECORDS SUMMARY | 2024-03-15 15:29 | XMS_ITS | Encounter Summary ---
Author Organization [facility] [place] [address] Care Team Providers Care Yarn Conditioner Name Role Phone Valencia Adhikari APRN Primary Care Provider +1 [phone] Encounter Details Date Type Department Care Team (Late st Contact Info) Description 10/04/2017 9:00 AM EDT Office Visit Psychiatry [place] [address] Argelia Mccray CAD LIBRARIAN [facility] [place] [address] Bipolar affective disorder, remission status unspecified; Depression, [...] and normal rhythm ?? Language: fluent in saudi arabian ?? Mood: Better ?? Affect: bright and [...] Contact Info) Description 05/23/2024 Hospital [place] [phone] Lexii Ceja MD [facility] [place] [address] documented as of this encounter Procedures Procedure [...] 10:08 AM EDT) Neutrophil % 71.5 % [facility] Neutrophil Absolute 5.34 1.70 - 6.10 x10(3)/[facility] LABORATORY Lymph % 16.6 % [facility] Lymphocytes Abs 1.2 0.9 - 3.2 x10(3)/[facility] LABORATORY Monocyte % 10.2 % [facility] Monocyte Abs 0.8 0.3 - 0.9 x10(3)/[facility] LABORATORY Eos % 0.8 % [facility] Eosinophils Abs 0.1 0.0 - 0.4 x10(3)/[facility] LABORATORY Basophil % 0.5 % [facility] Baso Absolute 0.0 0.0 - 0.1 x10(3)/[facility] LABORATORY Immature Gran % 0.40 % [facility] Comment: Immature granulocytes(IG's)percentage and absolute count will include metamyelocytes, myelocytes, and promyelocytes. Blood smears from CBCs yielding IG's will be scanned manually for concordance. If this scan disagrees with the automated IG or if promyelocytes are noted, a manual differential will be performed. Immature Gran Absolute 0.03 0.00 - 0.04 x10(3)/[facility] LABORATORY Blood specimen (specimen) 10/04/2017 10:08 AM EDT 10/04/2017 10:14 AM EDT Narrative Resulting Agency Comment Spec In Lab Argelia Mccray APRN HEMATOLOGY [place] [facility] [place] [address] * (ABNORMAL) Hemogram (10/04/2017 10:08 AM EDT) White Blood Cell 7.5 4.0 - 9.5 x10(3)/[facility] LABORATORY Red Blood Cell 4.03 4.00 - 5.21 x10(6)/[facility] LABOR[facility] Hemoglobin 13.6 11.7 - 15.5 gm/dL [facility] Hematocrit 40.0 35.7 - 45.8 % [facility] Mean Cell Volume 99.3(H) 82.6 - 94.4 fL [facility] Mean Cell Hemoglobin 33.7(H) 27.1 - 32.0 pg [facility] Mean Cell Hemoglobin Concentration 34.0 31.7 - 35.0 gm/dL [facility] Platelet 198 145 - 357 x10(3)/mc L [facility] RDW Standard Deviation 47.5(H) 37.0 - 46.0 fL [facility] RDW coefficient of variation 12.9 11.5 - 14.1 % [facility] Mean Platelet Volume 11.5 7.6 - 12.9 fL [facility] NRBC% auto 0.0 % [facility] NRBC Absolute 0.000 0.000 - 0.000 x10(3)/mc L [facility] Blood specimen (specimen) 10/04/2017 10:08 AM EDT 10/04/2017 10:14 AM EDT Narrative Resulting Agency Comment Spec In Lab Argelia Mccray APRN HEMATOLOGY [facility] [place] [address] * (ABNORMAL) Comprehensive metabolic panel (non-fasting) (10/04/2017 [...] of body mass or the acutely ill. [email or web address]/CondoGalankdep [email or web address]/[email or web address]OUTHnkf eGFR 130 >=60 mL/min/1. 73 m?? [facility] Comment: The eGFR was calculated using the CKD-EPI equation. As with all creatinine based estimates of kidney function, eGFR values calculated with the CKD-EPI equation are not accurate in patients with acute kidney failure, extremes of body mass or the acutely ill. http://Narvalous/DHnkdep http://Narvalous/DHMCnkf Blood specimen (specimen) 10/04/2017 10:08 AM EDT 10/04/2017 10:14 AM EDT Narrative Resulting Agency Comment Spec In Lab Argelia Mccray APRN CHEMISTRY ORDER AMANDA [facility] [place] [address] * (ABNORMAL) Lamotrigine Lvl (10/04/2017 10:08 AM EDT) Lamotrigine Lvl (AUGUST) 1.4(L) 2.5 - 15.0 mcg/mL [facility] Comment: ADDITIONAL INFORMATION This test was developed and its performance characteristics determined by [facility] in a manner consistent with CLIA requirements. This test has not been cleared or approved by the U.S. Food and Drug Administration. Test Performed by: [facility] [address] [place] [id number] Blood specimen (specimen) 10/04/2017 10:08 AM EDT 10/04/2017 11:55 AM EDT Narrative Resulting Agency Comment Spec In Lab Argelia Mccray APRN LAB SEND OUT OR DERABLES [facility] [place] [address] * TSH (10/04/2017 10:08 AM EDT) Thyroid Stimulating Hormone 0.90 0.27 - 4.20 mlU/ML [facility] Blood specimen (specimen) 10/04/2017 10:08 AM EDT 10/04/2017 10:14 AM EDT Narrative Resulting Agency Comment Spec In Lab Argelia Mccray APRN CHEMISTRY ORDER AMANDA Performing Organization Address City/[facility]/ZIP Co de Phone Number [facility] [place] [address] * Thyroglobulin Antibody (10/04/2017 10:08 AM EDT) Thyroglob Ab <20.0 0.0 - 40.0 IU/mL [facility] Blood specimen (specimen) 10/04/2017 10:08 AM EDT 10/04/2017 1:15 PM EDT Narrative Resulting Agency Comment Spec In Lab Argelia Mccray APRN LAB SEND OUT OR DERABLES Performing Organization Address City/[facility]/ZIP Co de Phone Number [facility] [place] [address] * (ABNORMAL) T4, free (10/04/2017 10:08 AM EDT) Free T4 1.74(H) 0.93 - 1.70 ng/dL [facility] Blood specimen (specimen) 10/04/2017 10:08 AM EDT 10/04/2017 10:14 AM EDT Narrative Resulting Agency Comment Spec In Lab Argelia Mccray APRN CHEMISTRY ORDER AMANDA Performing Organization Address [facility] Co de Phone Number [facility] [place] [address] * T4 Total (10/04/2017 10:08 AM EDT) T4 Total 8.5 5.1 - 10.8 mcg/dL [facility] Comment: Reference Range: Lamoni Cord Blood: ??6.9-14.4 mcg/dL Females: ??7.2-14.2 mcg/dL Pediatric ranges: ??Interpret with caution-ranges have not been verified Blood specimen (specimen) 10/04/2017 10:08 AM EDT 10/04/2017 10:14 AM EDT Narrative Resulting Agency Comment Spec In Lab Argelia Mccray APRN CHEMISTRY ORDER AMANDA Performing Organization Address [facility]/ZIP Co de Phone Number [facility] [place] [address] * T3, free (10/04/2017 10:08 AM EDT) Free T3 3.8 2.0 - 4.4 pg/mL [facility] Blood specimen (specimen) 10/04/2017 10:08 AM EDT 10/04/2017 10:14 AM EDT Narrative Resulting Agency Comment Spec In Lab Argelia Mccray CAD LIBRARIAN CHEMISTRY ORDER AMANDA [facility] [place] [address] documented in this encounter Visit Diagnoses Diagnosis Bipolar affective disorder, remission status unspecified Depression, unspecified depression type Anxiety Anxiety state, unspecified documented in this encounter Care Teams Yarn Conditioner Relationship Specialty Start Date End Date Valencia Adhikari APRN [address] [place] [address] PCP - General 04/21/14 07/04/23 documented as of this encounter
--- OUTSIDE RECORDS SUMMARY | 2024-03-15 15:29 | XMS_ITS | Encounter Summary ---
Author Organization [facility] [place] [address] Care Team Providers Care Toll Transmission Worker Name Role Phone Valencia Ahdikari APRN Primary Care Provider [phone] [phone] Encounter Details Date Type Department Care Team (Late st Contact Info) Description 10/04/2018 Telephone Psychiatry [place] [phone] Argelia Mccray APRN [facility] [place] [address] Social History Tobacco Use Types Packs/Day Years [...] 05/23/2024 [facility] [phone] Lexii Ceja MD [facility] OBSTETRICS [place] [address] documented as of this encounter Visit Diagnoses Not on filedocumented in this encounter Care Teams Toll Transmission Worker Relationship Specialty Start Date End Date Valencia Adhikari APRN [address] [place] [address] PCP - General 04/21/14 07/04/23 documented as of this encounter
--- OUTSIDE RECORDS SUMMARY | 2024-03-15 15:29 | XMS_ITS | Encounter Summary ---
[place] [address] Care Team Providers Care Auto Tech Name Role Phone Onofre Valencia Barton APRN Primary Care Provider [phone] Encounter Details Date Type Department Care Team (Late st Contact Info) Description 11/16/2017 Telephone [place] [address] Lianne Rivera RN Social History [...] Contact Info) Description 05/23/2024 Hospital [place] [address] Lexii Ceja MD [facility] [place] [address] documented as of this encounter Visit Diagnoses Not on filedocumented in this encounter Care Teams Auto Tech Relationship Specialty Start Date End Date Valencia Adhikari APRN [address] [place] [address] PCP - General 04/21/14 07/04/23 documented as of this encounter
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
--- OUTSIDE RECORDS SUMMARY | 2024-03-15 15:29 | XMS_ITS | Encounter Summary ---
Author Organization [facility] [place] [address] Care Team Providers Care Spinner Cap Frame Name Role Phone Valencia Adhikari APRN Primary Care Provider [phone] [phone] Encounter Details Date Type Department Care Team (Late st Contact Info) Description 12/13/2017 8:30 AM EDT Office Visit Psychiatry [place] [address] Argelia Mccray SUBSORTER [facility] [place] [address] Depression, unspecified depression type; Anxiety; Bipolar affective [...] and normal rhythm ?? Language: fluent in nigerien ?? Mood: Anxious ?? Affect: mood-congruent and [...] disorder who continues to be seen at [facility] for medication management. Andree continues [...] abuse) or ifrecords are subpoenaed by a registered nurse float pool. We also discussed that notes can be read by other clinicians andstaff involved in the patient's care. Argelia Mccray APRN 12/13/2017 documented in this encounter Plan of Treatment Upcoming Encounters Date Type Department Care Team (Late st Contact Info) Description 05/23/2024 [place] [phone] Lexii Ceja MD [facility] OBSTETRICS [place] [address] documented as of this encounter Visit Diagnoses Diagnosis Depression, unspecified depression type Anxiety Anxiety state, unspecified Bipolar affective disorder, remission status unspecified documented in this encounter Care Teams Spinner Cap Frame Relationship Specialty Start Date End Date Valencia Adhikari APRN [address] [place] [address] PCP - General 04/21/14 07/04/23 documented as of this encounter
--- OUTSIDE RECORDS SUMMARY | 2024-03-15 15:29 | XMS_ITS | Encounter Summary ---
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 Language: fluent in portuguese ?? Mood: anxious ?? Affect: mood-congruent ?? [...] HA1C Vit Lvls: No results found for: [id number], SFOLATE Tox: No results found for: ETHANOL, ACTMNPHEN, SALICYLATE, LEAD No results found for: UDAUSCREEN Rx Lvls: Lamotrigine Lvl Date Value Ref Range Status 07/04/2018 3.2 2.5 - 15.0 mcg/mL Final Comment: ADDITIONAL INFORMATION This test was developed and its performance characteristics determined by [facility] in a manner consistent with CLIA requirements. This test has not been cleared or approved by the U.S. Food and Drug Administration. Test Performed by: [facility] [place] [address] Formulation and Assessment: Overall Formulation: Andree UnderwoodWilliams [...] been searching for a therapist and this consumer loan underwriter willsend her additional resources. We also [...] Description 05/23/2024 [place] [address] Lexii Ceja MD [facility] OBSTETRICS [place] [address] documented as of this encounter Visit Diagnoses Diagnosis Depression, unspecified depression type Anxiety Anxiety state, unspecified documented in this encounter Care Teams Pipelines Laborer Relationship Specialty Start Date End Date Valencia Adhikari, DIE SETTER [address] [place] [address] PCP - General 04/21/14 07/04/23 documented as of this encounter
--- OUTSIDE RECORDS SUMMARY | 2024-03-15 15:29 | XMS_ITS | Encounter Summary ---
Author Organization [facility] [place] [address] Care Team Providers Care Roll Up Machine Operator Name Role Phone Valencia Adhikari APRN Primary Care Provider +1 [phone] Encounter Details Date Type Department Care Team (Late st Contact Info) Description 07/04/2018 8:30 AM EDT Office Visit Psychiatry and [place] [address] Argelia Mccray FIRE LIEUTENANT MARINE [facility] [place] [address] Bipolar II disorder; Depression, unspecified depression type; [...] so soon - continues to work at [employer] Substance Use: Tobacco use Safety: Low, no [...] abnormalities 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 Language: fluent in danish ?? Mood: Anxious ?? Affect: mood-congruent ?? [...] in these patients send serum separator tube ([facility] top) for subsequent determinations. Contact the Clinical [...] HA1C Vit Lvls: No results found for: [id number], SFOLATE Tox: No results found for: ETHANOL, ACTMNPHEN, SALICYLATE, LEAD No results found for: UDAUSCREEN Rx Lvls: Lamotrigine Lvl Date Value Ref Range Status 10/04/2017 1.4 (L) 2.5 - 15.0 mcg/mL Final Comment: ADDITIONAL INFORMATION This test was developed and its performance characteristics determined by [facility] in a manner consistent with CLIA requirements. This test has not been cleared or approved by the U.S. Food and Drug Administration. Test Performed by: [facility] - [facility] [address] [place] [address] Formulation and Assessment: Overall Formulation: Andree Hummel [...] Info) Description 05/23/2024 Hospital Encounter [place] [address] Lexii Ceja MD [facility] OBSTETRICS [place] [address] documented as of this encounter Procedures Procedure [...] LABORATORY Neutrophil Absolute 4.46 1.70 - 6.10 x10(3)/[facility] LABORATORY Lymph % 28.5 % [facility] Lymphocytes Abs 2.1 0.9 - 3.2 x10(3)/[facility] LABORATORY Monocyte % 8.6 % [facility] Monocyte Abs 0.6 0.3 - 0.9 x10(3)/[facility] LABORATORY Eos % 1.2 % [facility] Eosinophils Abs 0.1 0.0 - 0.4 x10(3)/[facility] LABORATORY Basophil % 0.5 % [facility] Baso Absolute 0.0 0.0 - 0.1 x10(3)/[facility] LABORATORY Immature Gran % 0.30 % [facility] Comment: Immature granulocytes(IG's)percentage and absolute count will include metamyelocytes, myelocytes, and promyelocytes. Blood smears from CBCs yielding IG's will be scanned manually for concordance. If this scan disagrees with the automated IG or if promyelocytes are noted, a manual differential will be performed. Immature Gran Absolute 0.02 0.00 - 0.04 x10(3)/[facility] LABORATORY Blood specimen (specimen) 07/04/2018 9:44 AM EDT 07/04/2018 10:05 AM EDT Narrative Resulting Agency Comment Spec In Lab Argelia Mccray APRN HEMATOLOGY ORDE CONCEPCION Performing Organization Address City/State/[facility] Co de Phone Number [facility] [place] [address] * (ABNORMAL) Hemogram (07/04/2018 9:44 AM EDT) White Blood Cell 7.3 4.0 - 9.5 x10(3)/mc L [facility] Red Blood Cell 3.84(L) 4.00 - 5.21 x10(6)/mc L [facility] Hemoglobin 12.9 11.7 - 15.5 gm/dL [facility] Hematocrit 38.7 35.7 - 45.8 % [facility] Mean Cell Volume 100.8(H) 82.6 - 94.4 fL [facility] Mean Cell Hemoglobin 33.6(H) 27.1 - 32.0 pg [facility] Mean Cell Hemoglobin Concentration 33.3 31.7 - 35.0 gm/dL [facility] Platelet 216 145 - 357 x10(3)/mc L [facility] RDW Standard Deviation 47.5(H) 37.0 - 46.0 fL [facility] RDW coefficient of variation 12.8 11.5 - 14.1 % [facility] Mean Platelet Volume 11.6 7.6 - 12.9 fL [facility] NRBC% auto 0.0 % [facility] NRBC Absolute 0.000 0.000 - 0.000 x10(3)/mc L [facility] Blood specimen (specimen) 07/04/2018 9:44 AM EDT 07/04/2018 10:05 AM EDT Narrative Resulting Agency Comment Spec In Lab Argelia Mccray APRN HEMATOLOGY ORDE RABLES Performing Organization Address [facility] Co de Phone Number [facility] [place] [address] * Lamotrigine Lvl (07/04/2018 9:44 AM EDT) Pathologist [facility] Lamotrigine Lvl (AUGUST) 3.2 2.5 - 15.0 mcg/mL [facility] Comment: ADDITIONAL INFORMATION This test was developed and its performance characteristics determined by [facility] in a manner consistent with CLIA requirements. This test has not been cleared or approved by the U.S. Food and Drug Administration. Test Performed by: [facility] [address] [place] [address] Blood specimen (specimen) 07/04/2018 9:44 AM EDT 07/04/2018 12:33 PM EDT Narrative Resulting Agency Comment Spec In Lab Argelia Mccray APRN LAB SEND OUT OR DERABLES Performing Organization Address [facility] Co de Phone Number [facility] [place] [address] * Comprehensive metabolic panel (non-fasting) (07/04/2018 9:44 AM EDT) Glucose 90 65 - 199 mg/dL [facility] Comment:Diabetes: >=200 mg/d L plus symptoms Blood Urea Nitrogen 9 8 - 18 mg/dL [facility] Creatinine 0.78 0.70 - 1.20 mg/dL [facility] Sodium 138 135 - 145 mmol/L [facility] Potassium 3.9 3.5 - 5.0 mmol/L [facility] Comment: Please note: ??Patients with WBC >100,000 may have falsely elevated Potassium levels. ??For accurate Potassium quantification in these patients send serum separator tube (gold top) for subsequent determinations. ??Contact the Clinical Chemistry Laboratory if there are any questions. Chloride 101 98 - 107 mmol/L [facility] Carbon Dioxide 26 22 - 31 mmol/L [facility] Anion Gap 11 5 - 15 mmol/L [facility] Calcium 9.1 8.5 - 10.5 mg/dL [facility] Protein, Total 6.4 6.1 - 8.0 gm/dL [facility] Albumin 4.2 3.2 - 5.2 gm/dL [facility] Aspartate Aminotransferase 12 0 - 30 unit/L [facility] Alanine Aminotransferase 10 0 - 30 unit/L [facility] Alkaline Phosphatase 79 40 - 104 unit/L [facility] Bilirubin, Total 0.4 0.2 - 1.3 mg/dL [facility] Est Glomerular Filtration Rate 104 >=60 mL/min/1. 73 m?? [facility] Comment: The eGFR was calculated using the CKD-EPI equation. As with all creatinine based estimates of kidney function, eGFR values calculated with the CKD-EPI equation are not accurate in patients with acute kidney failure, extremes of body mass or the acutely ill. [email or web address] eGFR 121 >=60 mL/min/1. 73 m?? [facility] Comment: The eGFR was calculated using the CKD-EPI equation. As with all creatinine based estimates of kidney function, eGFR values calculated with the CKD-EPI equation are not accurate in patients with acute kidney failure, extremes of body mass or the acutely ill. [email or web address] Blood specimen (specimen) 07/04/2018 9:44 AM EDT 07/04/2018 10:04 AM EDT Narrative Resulting Agency Comment Spec In Lab Argelia Mccray FIRE LIEUTENANT MARINE CHEMISTRY ORDER AMANDA Performing Organization Address City/[facility]/ZIP Co de Phone Number [facility] [place] [address] * (ABNORMAL) TSH (07/04/2018 9:44 AM EDT) Thyroid Stimulating Hormone 7.30(H) 0.27 - 4.20 mcIU/mL [facility] Blood specimen (specimen) 07/04/2018 9:44 AM EDT 07/04/2018 10:04 AM EDT Narrative Resulting Agency Comment Spec In Lab Argelia Mccray FIRE LIEUTENANT MARINE CHEMISTRY ORDER AMANDA Performing Organization Address [facility] Co de Phone Number [facility] [place] [address] * Thyroglobulin Antibody (07/04/2018 9:44 AM EDT) Thyroglob Ab <20.0 0.0 - 40.0 IU/mL [facility] Blood specimen (specimen) 07/04/2018 9:44 AM EDT 07/04/2018 2:05 PM EDT Narrative Resulting Agency Comment Spec In Lab Argelia Mccray [place] LAB SEND OUT OR DERABLES Performing Organization Address City/[facility] Co de Phone Number [facility] [place] [address] * T4, free (07/04/2018 9:44 AM EDT) Free T4 1.15 0.93 - 1.70 ng/dL [facility] Blood specimen (specimen) 07/04/2018 9:44 AM EDT 07/04/2018 10:04 AM EDT Narrative Resulting Agency Comment Spec In Lab Argelia Mccray APRN CHEMISTRY ORDER AMANDA [facility] [place] [address] * T4 Total (07/04/2018 9:44 AM EDT) T4 Total 5.7 5.1 - 10.8 mcg/dL [facility] Comment: Reference Range: Cord Blood: ??6.9-14.4 mcg/dL Females: ??7.2-14.2 mcg/dL Pediatric ranges: ??Interpret with caution-ranges have not been verified Blood specimen (specimen) 07/04/2018 9:44 AM EDT 07/04/2018 10:04 AM EDT Narrative Resulting Agency Comment Spec In Lab Argelia Mccray APRN CHEMISTRY ORDER AMANDA [facility] [place] [address] * T3, free (07/04/2018 9:44 AM EDT) Free T3 2.6 2.0 - 4.4 pg/mL [facility] Blood specimen (specimen) 07/04/2018 9:44 AM EDT 07/04/2018 10:04 AM EDT Narrative Resulting Agency Comment Spec In Lab Argelia Mccray APRN CHEMISTRY ORDER AMANDA [facility] [place] [address] documented in this encounter Visit Diagnoses Diagnosis Bipolar II disorder Other bipolar disorders Depression, unspecified depression type Anxiety Anxiety state, unspecified documented in this encounter Care Teams Roll Up Machine Operator Relationship Specialty Start Date End Date Valencia Adhikari APRN [address] [place] [address] PCP - General 04/21/14 07/04/23 documented as of this encounter
--- OUTSIDE RECORDS SUMMARY | 2024-03-15 15:29 | XMS_ITS | Encounter Summary ---
Author Organization [facility] [place] [address] Care Team Providers Care Midwife Practitioner Name Role Phone OnofreMarilynValencia Oralia SLADE Primary Care Provider +1 [phone] Reason for Visit * Reason Onset Date Comments Medication Refill 12/24/2018 Encounter Details Date Type Department Care Team (Late st Contact Info) Description 12/24/2018 Refill Psychiatry and [place] [address] Argelia Mccray APRN [facility] [place] [address] Depression, unspecified depression type; Anxiety Social History [...] Contact Info) Description 05/23/2024 [place] [address] Lexii Ceja MD [facility] DR OBSTETRICS [place] [address] documented as of this encounter Visit Diagnoses Diagnosis Depression, unspecified depression type Anxiety Anxiety state, unspecified documented in this encounter Care Teams Midwife Practitioner Relationship Specialty Start Date End Date Valencia Adhikari APRN [address] [place] [address] PCP - General 04/21/14 07/04/23 documented as of this encounter
--- OUTSIDE RECORDS SUMMARY | 2024-03-15 15:29 | XMS_ITS | Encounter Summary ---
[place] [address] Care Team Providers Care Flower Shop Manager Name Role Phone Valencia Adhikari APRN Primary Care Provider [phone] [phone] Encounter Details Date Type Department Care Team (Late st Contact Info) Description 05/11/2020 Telephone Psychiatry [place] [address] Sary Harris Social History Tobacco Use Types [...] Contact Info) Description 05/23/2024 Hospital [place] [address] Lexii Ceja MD [facility] OBSTETRICS [place] [address] documented as of this encounter Visit Diagnoses Not on filedocumented in this encounter Care Teams Flower Shop Manager Relationship Specialty Start Date End Date Valencia Adhikari APRN [address] [place] [address] PCP - General 04/21/14 07/04/23 documented as of this encounter
--- OUTSIDE RECORDS SUMMARY | 2024-03-15 15:29 | XMS_ITS | Encounter Summary ---
Author Organization [facility] Address [facility] [place] [address] Care Team Providers Care Magnetic Prospector Name Role Phone OnofreValencia pitts [place] Primary Care Provider +1 -[phone] Encounter Details Date Type Department Care Team (Late st Contact Info) Description 05/14/2020 Orders Only Psychiatry [place] [address] Crispin Fuller MD [facility] [place] [address] Social History Tobacco Use Types Packs/Day Years [...] Contact Info) Description 05/23/2024 Hospital [place] [address] Lexii Ceja MD [facility] OBSTETRICS [place] [address] documented as of this encounter Visit Diagnoses Not on filedocumented in this encounter Care Teams Magnetic Prospector Relationship Specialty Start Date End Date Valencia Adhikari APRN [address] [place] [address] PCP - General 04/21/14 07/04/23 documented as of this encounter
--- OUTSIDE RECORDS SUMMARY | 2024-03-15 15:29 | XMS_ITS | Encounter Summary ---
Author Organization [facility] Address [facility] [place] [address] Care Team Providers Care Dental Specialist Name Role Phone Valencia Adhikari APRN Primary Care Provider +1 -[phone] Encounter Details Date Type Department Care Team (Late st Contact Info) Description 05/11/2020 Telephone Psychiatry [place] [address] Crispin Fuller MD [facility] [place] [address] Social History Tobacco Use Types Packs/Day Years [...] Contact Info) Description 05/23/2024 [place] [address] Lexii Ceja MD [facility] [address] OBSTETRICS [place] [address] documented as of this encounter Visit Diagnoses Not on filedocumented in this encounter Care Teams Dental Specialist Relationship Specialty Start Date End Date Valencia Adhikari, SERVICE STATION HELPER [address] [place] [address] PCP - General 04/21/14 07/04/23 documented as of this encounter
--- OUTSIDE RECORDS SUMMARY | 2024-03-15 15:30 | XMS_ITS | Encounter Summary ---
Author Organization [facility] Address [facility] [place] [address] Care Team Providers Care Social Media Director Name Role Phone Valencia Adhikari APRN Primary Care Provider +1 -[phone] Reason for Visit * Reason Comments Depression Anxiety * Consultation (Routine) - Closed Specialty Diagnoses / Procedures Referred By Contwillow t Referred To Contact Psychiatry Diagnoses Anxiety, depression StressJoceline cardoza APRN [address] [place] [address] [facility] [place] [address] Referral ID Status Reason Start Date Expiration Date V isits Requested Visits Authorized [id number] Closed Consult, Test & [facility] 05/29/2017 05/29/2018 1 1 Encounter Details Date Type Department Care Team (Late st Contact Info) Description 07/26/2017 10:00 AM EDT Office Visit Psychiatry [place] [address] Argelia Mccray APRN [facility] [place] [address] CHARISSE (generalized anxiety disorder); Major [...] most of the time Pain impact Moderately [place] calm A little of the time Lot of energy Some of the time [place] downhearted Most of the time Social Impact [...] milestones 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: 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 [...] Contact Info) Description 05/23/2024 Hospital [place] [address] Lexii Ceja MD [facility] DR OBSTETRICS [place] [address] documented as of this encounter Visit Diagnoses Diagnosis CHARISSE (generalized anxiety disorder) Generalized anxiety disorder Major depressive disorder, recurrent episode, moderate Bipolar affective disorder, remission status unspecified documented in this encounter Care Teams Social Media Director Relationship Specialty Start Date End Date Valencia Adhikari APRN [address] [place] [address] PCP - General 04/21/14 07/04/23 documented as of this encounter
--- OUTSIDE RECORDS SUMMARY | 2024-03-15 15:30 | XMS_ITS | Encounter Summary ---
Author Organization [facility] Address [facility] [place] [address] Care Team Providers Care Risk Compliance Manager Name Role Phone Valencia Adhikari APRN Primary Care Provider +1 [phone] Encounter Details Date Type Department Care Team (Latest Contact Info) Description 09/06/2016 - 09/06/2016 11:59 PM EDT Hospital Encounter Radiology Library at [facility] [address] Kedar Santos MD [facility] [place] [address] Discharge Disposition: Home Social History Tobacco Use [...] Info) Description 05/23/2024 Hospital Encounter Birthing [facility] [place] [address] Lexii Ceja MD [facility] DR OBSTETRICS [place] [address] documented as of this encounter Procedures Procedure [...] Santos MD IMG FILM LIBRARY ORD ERABLES [place], [place] documented in this encounter Visit Diagnoses Not on filedocumented in this encounter Care Teams Risk Compliance Manager Relationship Specialty Start Date End Date Valencia Adhikari APRN [address] [place] [address] PCP - General 04/21/14 07/04/23 documented as of this encounter
--- OUTSIDE RECORDS SUMMARY | 2024-03-15 15:30 | XMS_ITS | Encounter Summary ---
Author Organization [facility] [address] Care Team Providers Care Adult Basic Education Instructor Name Role Phone Valencia Adhikari APRN Primary Care Provider [phone] [phone] Encounter Details Date Type Department Care Team (Late st Contact Info) Description 05/08/2016 4:00 PM EST Office Visit Obstetrics [place] [address] Valencia Bourne CNM [facility] OBSTETRICS & [place] [address] IUD check up Social History Tobacco Use [...] Contact Info) Description 05/23/2024 [place] [address] Lexii Ceja MD [facility] DR OBSTETRICS [place] [address] documented as of this encounter Visit Diagnoses Diagnosis IUD check up Surveillance of previously prescribed intrauterine contraceptive device documented in this encounter Care Teams Adult Basic Education Instructor Relationship Specialty Start Date End Date Valencia Adhiakri APRN [address] [place] [address] PCP - General 04/21/14 07/04/23 documented as of this encounter
--- OUTSIDE RECORDS SUMMARY | 2024-03-15 15:30 | XMS_ITS | Encounter Summary ---
Author Organization [facility] Address [facility] [place] [address] Care Team Providers Care Emergency Medical Technician Name Role Phone Valencia Adhikari APRN Primary Care Provider +1 [phone] Reason for Visit * Reason Comments Back Pain Encounter Details Date Type Department Care Team (Late st Contact Info) Description 04/25/2015 10:57 PM EST - 04/26/2015 1:39 AM EST [place] [address] Eduardo Braun MD [facility] [address] Cervical strain, initial encounter; Closed head injury, [...] Info) Description 05/23/2024 Hospital [place] [address] Lexii Ceja MD [facility] DR OBST[place] [address] documented as of this encounter Procedures Procedure [...] and the residents interpretationand agree with the findingsDavid at 04/26/2015 1:03 AM Eduardo Braun MD [...] 2 tablet 2 tablet, Oral, ONCE, On 04/26/15 at [...] Lakhani) documented in this encounter Care Teams Emergency Medical Technician Relationship Specialty Start Date End Date Valencia Adhikari APRN [address] [place] [address] PCP - General 04/21/14 07/04/23 documented as of this encounter
--- OUTSIDE RECORDS SUMMARY | 2024-03-15 15:30 | XMS_ITS | Encounter Summary ---
Author Organization [facility] [place] [address] Care Team Providers Care Fence Repairman Name Role Phone Onofre Valenciaadan Barton APRN Primary Care Provider +1 -[phone] Encounter Details Date Type Department Care Team (Late st Contact Info) Description 08/09/2017 Telephone Psychiatry and [place] [address] Argelia Mccray APRN [facility] [place] [address] Social History Tobacco Use Types Packs/Day Years [...] Contact Info) Description 05/23/2024 [place] [address] Lexii Ceja MD [facility] [address] [place] [address] documented as of this encounter Visit Diagnoses Not on filedocumented in this encounter Care Teams Fence Repairman Relationship Specialty Start Date End Date Valencia Adhikari APRN [address] [place] [address] PCP - General 04/21/14 07/04/23 documented as of this encounter
--- OUTSIDE RECORDS SUMMARY | 2024-03-15 15:30 | XMS_ITS | Encounter Summary ---
Author Organization [facility] Address [facility] [place] [address] Care Team Providers Care Vocational Aide Name Role Phone Valencia Adhikari APRN Primary Care Provider +1 [phone] Reason for Visit * Reason Comments Follow-up left shoulder pain Encounter Details Date Type Department Care Team (Late st Contact Info) Description 07/13/2017 1:00 PM EDT Office [place] [phone] Meliton Larkin PA [facility] [address] Chronic left shoulder pain Social History Tobacco [...] Contact Info) Description 05/23/2024 Hospital [place] [address] Lexii Ceja MD [facility] [address] [place] [address] documented as of this encounter Visit Diagnoses Diagnosis Chronic left shoulder pain Pain in joint, shoulder region documented in this encounter Care Teams Vocational Aide Relationship Specialty Start Date End Date Valencia Adhikari APRN [address] [place] [address] PCP - General 04/21/14 07/04/23 documented as of this encounter
--- OUTSIDE RECORDS SUMMARY | 2024-03-15 15:30 | XMS_ITS | Encounter Summary ---
Author Organization [facility] Address [facility] [place] [address] Care Team Providers Care Staff Physical Therapist Name Role Phone Valencia Adhikari APRN Primary Care Provider +1 -[phone] Encounter Details Date Type Department Care Team (Latest Contact Info) Description 03/20/2017 1:52 PM EST - 03/20/2017 11:59 PM [facility] Hospital Encounter XRay at [address] [place] [address] Kedar Santos MD [facility] [place] [address] Left shoulder pain, unspecified chronicity Discharge Disposition: [...] Description 05/23/2024 Hospital Encounter Birthing [facility] [address] [place] [address] Sally Ceja MD [facility] DR OBSTETRICS [place] [address] documented as of this encounter Procedures Procedure [...] pre- procedural time-out was performed as per [facility] protocol. The patient was placed supine on [...] reviewed with patient. Procedure Note Sally Joya, MAINTAINER [employer] - 03/20/2017 HISTORY: Left shoulder pain, inject for diagnostic/therapeutic purposes. LEFT SHOULDER JOINT INJECTION UNDER FLUOROSCOPY TECHNIQUE: After an extensive conversation with the patient regardingrisks and benefits, oral and written consent were obtained. A pre- proceduraltime-out was performed as per [facility] protocol. The patient was placed supine on [...] pre- procedural time-out was performed as per [facility] protocol. The patient was placed supine on [...] pre- procedural time-out was performed as per [facility] protocol. The patient was placed supine on [...] I performed this procedure. Kedar Santos MD [facility] PROC ORDERABL ES documented in [...] (Left) documented in this encounter Care Teams Staff Physical Therapist Relationship Specialty Start Date End Date Valencia Adhikari APRN [address] [place] [address] PCP - General 04/21/14 07/04/23 documented as of this encounter
--- OUTSIDE RECORDS SUMMARY | 2024-03-15 15:30 | XMS_ITS | Encounter Summary ---
Author Organization [facility] [place] [address] Care Team Providers Care Scaffolding Helper Name Role Phone Valencia Adhikari APRN Primary Care Provider +1 -[phone] Reason for Visit * Reason Onset Date Comments Other 02/15/2017 Encounter Details Date Type Department Care Team (Late st Contact Info) Description 02/15/2017 [place] [phone] Isaac Osorio MD [facility] [place] [address] Other Social History Tobacco Use Types Packs/Day [...] If not Pt / Relation to pt: [facility] Best time to reach caller: Anytime at Dr Osorio's convenience Before 2:30pm - Informed caller that nurse will call back by the end of the day Best number to reach caller: [phone] Reason for call: Joceline from [facility] called. She would like to speak with Dr Osorioregarding the MRI patient had done [facility] on 02/09/2017 documented in this encounter Plan of Treatment Upcoming Encounters Date Type Department Care Team (Late st Contact Info) Description 05/23/2024 [place] [address] Lexii Ceja MD [facility] OBSTETRICS [place] [address] documented as of this encounter Visit Diagnoses Not on filedocumented in this encounter Care Teams Scaffolding Helper Relationship Specialty Start Date End Date Valencia Adhikari APRN [address] [place] [address] PCP - General 04/21/14 07/04/23 documented as of this encounter
--- OUTSIDE RECORDS SUMMARY | 2024-03-15 15:30 | XMS_ITS | Encounter Summary ---
[facility] [place] [address] Care Team Providers Care Orthotic And Prosthetic Technician Name Role Phone Onofre Valencia Barton APRN Primary Care Provider +1 -[phone] Reason for Visit * Reason Onset Date Comments Medication Refill 06/27/2017 Encounter Details Date Type Department Care Team (Late st Contact Info) Description 06/27/2017 [place] [address] Yolanda Salomon RN Left shoulder pain, unspecified [...] shoulder injection under fluoroscopy in the [facility] on with Dr. Altamirano. How is this medication being used currently: She is using 1/2-1 patch daily. She uses the gel from 1-4 times daily. Pain level: The meds have reduced her pain by 30-40%. Other pain medications used and how: n/a. New Prescription written for: Lidocaine #30 patch daily on 12hours and off 12 hours. Diclofenac nui248 g apply 2 g topically 4x/day. Prescription sent electronically to [facility] by in [place], [place]. The patient knows how to contact orthopaedics if any further questions or concerns occur. documented in this encounter Plan of Treatment Upcoming Encounters Date Type Department Care Team (Late st Contact Info) Description 05/23/2024 [place] [address] Lexii Ceja MD [facility] [place] [address] documented as of this encounter Visit Diagnoses Diagnosis Left shoulder pain, unspecified chronicity documented in this encounter Care Teams Orthotic And Prosthetic Technician Relationship Specialty Start Date End Date Valencia Adhikari APRN [address] [place] [address] PCP - General 04/21/14 07/04/23 documented as of this encounter
--- OUTSIDE RECORDS SUMMARY | 2024-03-15 15:30 | XMS_ITS | Encounter Summary ---
Author Organization [facility] [place] [address] Care Team Providers Care Critical Care Unit Manager Name Role Phone Valencia Adhikari APRN Primary Care Provider +1 -[phone] Encounter Details Date Type Department Care Team (Late st Contact Info) Description 08/09/2017 Telephone Psychiatry [place] [address] Geovanna Méndez Social History Tobacco Use Types [...] for her there. Her phone number is [phone] Sandie Austin documented in this encounter Plan of Treatment Upcoming Encounters Date Type Department Care Team (Late st Contact Info) Description 05/23/2024 Hospital Encounter Birthing [facility] [place] [address] Lexii Ceja MD [facility] DR [place]ST[place] [address] documented as of this encounter Visit Diagnoses Not on filedocumented in this encounter Care Teams Critical Care Unit Manager Relationship Specialty Start Date End Date Valencia Adhikari APRN [address] [place] [address] PCP - General 04/21/14 07/04/23 documented as of this encounter
--- OUTSIDE RECORDS SUMMARY | 2024-03-15 15:30 | XMS_ITS | Encounter Summary ---
Author Organization [facility] Address [facility] [place] [address] Care Team Providers Care Outsole Splicer Name Role Phone Valencia Adhikari APRN Primary Care Provider +1 -[phone] Reason for Visit * Reason Comments Pain Management L posterior shoulder muscular pain * Consultation (Routine) - Closed Specialty Diagnoses / Procedures Referred By Contac t Referred To Contact Pain Management Diagnoses Chronic left shoulder pain Kedar Santos MD [facility] [place] [address] [facility] [address] [place] [phone] Referral ID Status Reason Start Date Expiration Date V isits Requested Visits Authorized [id number] Closed Consult, Test & Treat 05/15/2017 05/15/2018 1 1 Encounter Details Date Type Department Care Team (Late st Contact Info) Description 06/05/2017 11:30 AM EST Office [place] [phone] Deacon Webster MD [facility] [place] [address] Rotator cuff tendinitis, left; Biceps tendinitis of [...] as an apple and a at a snf. She was pushing a wheeled table which [...] therapy at [facility]. Her therapy had been going well however she describes an event occurring approximately one month earlierin which she heard a pop in her shoulder and her pain returned. She is currently treating her pain with Voltaren gel and lidocaine patches. She underwent MRI imaging of the left shoulder in September 2016 at [facility] which was normal. She underwent [...] [facility] ultrasound [facility] which didn't provide her with [...] a benzodiazepine? No Current use of other CHIEF MINISTER depressant? No Current diagnosis of Obstructive Seep [...] MONITORING, SETUP performed by JUAN ESPARZA at [facility] MAIN OR ??? PRO THYROIDECTOMY, MALIG, LTD NECK SURG 03/22/2011 THYROIDECTOMY, FOR MALIGNANCY, LIMITED NECK DISSECTION performed by JUAN ESPARZA at [facility] MAIN OR ??? TONSILLECTOMY 2010 ??? 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 Smoking status: [...] DATA: MRI of left shoulder 2017 at [facility] The results and images of [...] Contact Info) Description 05/23/2024 Hospital [place] [address] Lexii Ceja MD [facility] DR OBSTET[place] [address] documented as of this encounter Visit Diagnoses Diagnosis Rotator cuff tendinitis, left Biceps tendinitis of left shoulder documented in this encounter Care Teams Outsole Splicer Relationship Specialty Start Date End Date Valencia Adhikari APRN [address] [place] [address] PCP - General 04/21/14 07/04/23 documented as of this encounter
--- OUTSIDE RECORDS SUMMARY | 2024-03-15 15:30 | XMS_ITS | Encounter Summary ---
Author Organization [facility] Address [facility] [place] [address] Care Team Providers Care Pole Inspector Name Role Phone Valencia Adhikari APRN Primary Care Provider +1 [phone] Reason for Visit * Reason Comments Left Shoulder Pain Encounter Details Date Type Department Care Team (Late st Contact Info) Description 09/12/2017 11:10 AM EDT Office [place] [address] Kedar Rowe MD [facility] [place] [address] Chronic left shoulder pain (Primary Dx) Social [...] radial, ulnar. EPL, FPL, interossei intact. Positive Marietta's test. With Speed and Yergason she has [...] 05/23/2024 Hospital [place] [address] Lexii Ceja MD [facility] [address] [place] [address] documented as of this encounter Visit Diagnoses [...] mg documented in this encounter Care Teams Pole Inspector Relationship Specialty Start Date End Date Valencia Adhikari APRN [address] [place] [address] PCP - General 04/21/14 07/04/23 documented as of this encounter
--- OUTSIDE RECORDS SUMMARY | 2024-03-15 15:30 | XMS_ITS | Encounter Summary ---
Author Organization [facility] [place] [address] Care Team Providers Care Rn Rehabilitation Name Role Phone OnofreValencia pitts Oralia SLADE Primary Care Provider +1 -[phone] Encounter Details Date Type Department Care Team (Late st Contact Info) Description 08/24/2017 Orders Only Psychiatry [place] [phone] Argelia Mccray APRN [facility] [place] [address] Depression, unspecified depression type Social History Tobacco [...] Info) Description 05/23/2024 Hospital [place] [address] Lexii Ceja MD [facility] DR OBSTETRICS [place] [address] documented as of this encounter Visit Diagnoses Diagnosis Depression, unspecified depression type documented in this encounter Care Teams Rn Rehabilitation Relationship Specialty Start Date End Date Valencia Adhikari APRN [address] [place] [address] PCP - General 04/21/14 07/04/23 documented as of this encounter
--- OUTSIDE RECORDS SUMMARY | 2024-03-15 15:30 | XMS_ITS | Encounter Summary ---
Author Organization [facility] Address [facility] [place] [address] Care Team Providers Care Automotive Tire Worker Name Role Phone Valencia Adhikari APRN Primary Care Provider +1 -[phone] Reason for Visit * Consultation (Routine) - Closed Specialty Diagnoses / Procedures Referred By Lamont riggins Referred To Contact Neurology Diagnoses BILATERAL HAND PARESTHESIA Procedures Evaluate and Treat StressJoceline cardoza APRN [address] [place] [address] [facility] Neurology [address] [place] [phone] Referral ID Status Reason Start Date Expiration Date V isits Requested Visits Authorized [id number] Closed Consult, Test & Treat Connection Center 11/20/2016 11/20/2017 1 1 Encounter Details Date Type Department Care Team (Latest Contact Info) Description 12/01/2016 10:00 AM EDT Procedure [place] [phone] Isaac Osorio MD [facility] [place] [address] Paresthesias in left hand; Paresthesias in right [...] is a single mother and lives in [place], [place]. She denies any neck pain. She [...] Contact Info) Description 05/23/2024 [place] [address] Lexii Ceja MD [facility] DR OBSTETRICS [place] [address] documented as of this encounter Visit Diagnoses Diagnosis Paresthesias in left hand Disturbance of skin sensation Paresthesias in right hand Disturbance of skin sensation documented in this encounter Care Teams Automotive Tire Worker Relationship Specialty Start Date End Date Valencia Adhikari APRN [address] [place] [address] PCP - General 04/21/14 07/04/23 documented as of this encounter
--- OUTSIDE RECORDS SUMMARY | 2024-03-15 15:30 | XMS_ITS | Encounter Summary ---
Author Organization [facility] [place] [address] Care Team Providers Care Taping Supervisor Name Role Phone Valencia Adhikari APRN Primary Care Provider +1 -[phone] Reason for Visit * Reason Comments Follow-up IUD consult, inserti on Encounter Details Date Type Department Care Team (Late st Contact Info) Description 03/14/2016 10:00 AM EST Office Visit Obstetrics [place] [address] Pam Chaidez APRN [facility] OBSTETRICS [place] [address] Encounter for IUD insertion (Primary Dx); IUD [...] this encounter Progress Notes * Pam Chaidez, PRISM INSPECTOR - 03/14/2016 10:00 AM EST REASON FOR [...] NECK DISSECTION performed by JUAN ESPARZA at [facility] MAIN OR ??? Prg somatosensory test, any/all per. nerves, trunk or head 03/22/2011 FACIAL NERVE MONITORING, SETUP performed by JUAN ESPARZA at [facility] MAIN OR ??? [place] tooth extraction ??? Upper gastrointestinal endoscopy for [...] Contact Info) Description 05/23/2024 [place] [address] Lexii Ceja MD [facility] DR OBSTETRICS [place] [address] Scheduled Orders Name Type Priority Associated Diagnoses [...] AM EST) GC Gene Amp Negative Negative [facility] Comment: The only FDA approved specimen types for this assay are cervix, vagina, urethra and urine. GC Source Urine [facility] Chlamydia Gene Amp Negative Negative [facility] Comment: The only FDA approved specimen types for this assay are cervix, vagina, urethra and urine. Chlm Source Urine [facility] Urine specimen (specimen) 03/14/2016 10:38 AM EST 03/14/2016 12:09 PM EST Narrative Resulting Agency Comment Spec In Lab Richard Faust MD MICROBIOLOGY - GENER AL ORDERABLES [facility] [place] [id number] documented in this encounter Visit Diagnoses Diagnosis [...] section) documented in this encounter Care Teams Taping Supervisor Relationship Specialty Start Date End Date Valencia Adhikari APRN [address] [place] [address] PCP - General 04/21/14 07/04/23 documented as of this encounter
--- OUTSIDE RECORDS SUMMARY | 2024-03-15 15:30 | XMS_ITS | Encounter Summary ---
Author Organization [facility] [place] [address] Care Team Providers Care Corporate Travel Manager Name Role Phone Valencia Adhikari APRN Primary Care Provider +1 -[phone] Reason for Visit * Reason Comments Follow-up string check Encounter Details Date Type Department Care Team (Late st Contact Info) Description 04/11/2016 9:20 AM EST Office Visit Obstetrics [place] [address] Pam Chaidez APRN [facility] OBSTETRICS [place] [address] IUD check up (Primary Dx) Social History [...] Vulva: No lesions. Normal hair distribution. Vagina: [place], moist, rugated. Normal discharge noted. No lesions. [...] Contact Info) Description 05/23/2024 [place] [address] Lexii Ceja MD [facility] DR OBSTETRICS [place] [address] documented as of this encounter Visit Diagnoses Diagnosis IUD check up- Primary Surveillance of previously prescribed intrauterine contraceptive device documented in this encounter Care Teams Corporate Travel Manager Relationship Specialty Start Date End Date Valencia Adhikari APRN [address] [place] [address] PCP - General 04/21/14 07/04/23 documented as of this encounter
--- OUTSIDE RECORDS SUMMARY | 2024-03-15 15:30 | XMS_ITS | Encounter Summary ---
Author Organization [facility] [place] [address] Care Team Providers Care Key Punch Teacher Name Role Phone Valencia Adhikari APRN Primary Care Provider +1 -[phone] Reason for Referral * Consultation (Routine) - Closed Specialty Diagnoses / Procedures Referred By Lamont t Referred To Contact Pain Management Diagnoses Chronic left shoulder pain Kedar Santos MD [facility] [place] [address] [facility] [address] [place] [address] Referral ID Status Reason Start Date Expiration Date V isits Requested Visits Authorized [id number] Closed Consult, Test & Treat 05/15/2017 05/15/2018 1 1 Reason for Visit * Reason Comments Left Shoulder Pain DOI 09/06/2016 W/C Encounter Details Date Type Department Care Team (Late st Contact Info) Description 05/15/2017 11:30 AM EST Office [place] [address] Kedar Santos MD [facility] ORTHOPAEDIC SURGERY [place], [place] [phone] Chronic left shoulder pain Social History Tobacco [...] available for review but was done at [facility] and was reportedly negative. Next Assessment/plan: 26-year-old [...] Contact Info) Description 05/23/2024 [place] [address] Lexii Ceja MD [facility] DR OBSTETRICS [place] [address] Scheduled Referrals Name Type Priority Associated Diagnoses Orde r Schedule Referral to Pain Clinic Outpatient Referral Routine Chronic left shoulder pain Ordered: 05/15/2017 documented as of this encounter Visit Diagnoses Diagnosis Chronic left shoulder pain Pain in joint, shoulder region documented in this encounter Care Teams Key Punch Teacher Relationship Specialty Start Date End Date Valencia Adhikari APRN [address] [place] [address] PCP - General 04/21/14 07/04/23 documented as of this encounter
--- OUTSIDE RECORDS SUMMARY | 2024-03-15 15:30 | XMS_ITS | Encounter Summary ---
Author Organization [facility] Address [facility] [place] [address] Care Team Providers Care Mold Unloader Name Role Phone Jason Gomez APRN Primary Care Provider +1 [phone] Reason for Visit * Reason Comments Headache Dizziness * Consultation (Routine) - Closed Specialty Diagnoses / Procedures Referred By Contac t Referred To Contact Neurology Diagnoses headaches Jason Gomez APRN [address] [place] [address] [facility] Neu[facility] [address] [place] [phone] Referral ID Status Reason Start Date Expiration Date V isits Requested Visits Authorized [id number] Closed Consult, Test & Treat Connection Center 12/13/2015 12/12/2016 1 1 Encounter Details Date Type Department Care Team (Late st Contact Info) Description 12/21/2015 8:30 AM EDT Office [place] [address] Neo Pleitez MD [facility] [address] Evelyn Pelayo MD [address] [place] [phone] Migraine with vertigo; Intractable chronic migraine without [...] diary to the next appointment. Please check [employer] web site and read about [...] side effects, please call my office at [phone], Sunday through Sunday, 8 AM to 5 [...] h, last MINAYA started 20 min ago TRANSPORTATION MAINTENANCE SPECIALIST, varies in degree of intensity MINAYA free [...] NECK DISSECTION performed by JUAN ESPARZA at [facility] MAIN OR ??? Prg somatosensory test, any/all per. nerves, trunk or head 03/22/2011 FACIAL NERVE MONITORING, SETUP performed by UJAN ESPARZA at [facility] MAIN OR ??? [place] tooth extraction ??? Upper gastrointestinal endoscopy for IBS, celiac excluded ??? Colonoscopy found polyps ??? Tonsillectomy 2010 Social History: Social History Social History ??? Marital status: Single Spouse name: N/A ??? Number of children: 0 ??? 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 Smoking [...] since it works well. Patient was given [employer] handouts about her headache condition [...] Info) Description 05/23/2024 Hospital Encounter Birthing [place] [phone] Lexii Ceja MD [facility] DR OBST[place] [address] documented as of this encounter Procedures Procedure Name Priority Date/Time Associated Diagnosis Comments URINE, QUALITATIVE Routine 12/21/2015 11:36 AM EDT Migraine with vertigo Intractable chronic migraine without aura and without status migrainosus documented in this encounter Results * urine, qualitative (12/21/2015 11:36 AM EDT) Specific [place] Urine Non-automated 1.017 1.002 - 1.030 [facility] Human Chorionic Gonadotropin Qualitative, Urine Negative [facility] Comment: If Specific [place] is less than 1.010, a negative result is obtained, and is still suspected, a repeat on a first morning specimen is recommended. Urine specimen (specimen) 12/21/2015 11:36 AM EDT 12/21/2015 12:08 PM EDT Narrative Resulting Agency Comment Spec In Lab Evelyn Pelayo MD URINE ORDERABLES [facility] [place] [address] documented in this encounter Visit Diagnoses Diagnosis Migraine with vertigo Migraine with aura, without mention of intractable migraine without mention of status migrainosus Intractable chronic migraine without aura and without status migrainosus Chronic migraine without aura, with intractable migraine, so stated, without mention of status migrainosus documented in this encounter Care Teams Mold Unloader Relationship Specialty Start Date End Date Jason Gomez APRN [address] [place] [address] PCP - General 04/21/14 07/04/23 documented as of this encounter
--- OUTSIDE RECORDS SUMMARY | 2024-03-15 15:30 | XMS_ITS | Encounter Summary ---
Author Organization [facility] [place] [address] Care Team Providers Care Patient Support Specialist Name Role Phone Valencia Adhikari APRN Primary Care Provider +1 [phone] Reason for Visit * Reason Onset Date Comments Other 12/21/2015 Encounter Details Date Type Department Care Team (Late st Contact Info) Description 12/21/2015 Telephone Neurology at [facility] [place] [phone] Neo Pletiez MD [facility] [place] [address] Other Social History Tobacco Use Types Packs/Day [...] asks that I send the order to [facility] lab and I will do that. She will call toschedule her MRI. * Telephone Encounter - Jeanette Doss - 12/21/2015 1:54 PM EDT Patient called looking for results from labs from this morning Please call [phone] Thanks documented in this encounter Plan of Treatment Upcoming Encounters Date Type Department Care Team (Late st Contact Info) Description 05/23/2024 Hospital [place] [address] Lexii Ceja MD [facility] DR OBSTETRICS [place] [address] documented as of this encounter Visit Diagnoses Not on filedocumented in this encounter Care Teams Patient Support Specialist Relationship Specialty Start Date End Date Valencia Adhikari APRN [address] [place] [address] PCP - General 04/21/14 07/04/23 documented as of this encounter
--- OUTSIDE RECORDS SUMMARY | 2024-03-15 15:30 | XMS_ITS | Encounter Summary ---
Author Organization [facility] Address [facility] [place] [address] Care Team Providers Care System Planning Engineer Name Role Phone Valencia Adhikari APRN Primary Care Provider +1 [phone] Reason for Referral * Physical Therapy (Routine) - Specialty Diagnoses / Procedures Referred By Lamont riggins Referred To Contact Diagnoses Left shoulder pain, unspecified chronicity Kedar Santos MD [facility] [place] [address] Referral ID Status Reason Start Date Expiration Date V isits Requested Visits Authorized [id number] Evaluate and Treat 02/27/2017 08/26/2017 12 12 Encounter Details Date Type Department Care Team (Late st Contact Info) Description 02/27/2017 Telephone [place] [address] Lexii Martinez, RN Social History Tobacco Use [...] from Dr. Santos. PT order faxed to [place], [place], , the PT office of patient's choice.Message out to schedulers to reach out and schedule the injections. Patient encouraged to call the clinicif any questions/ concerns arise. documented in this encounter Plan of Treatment Upcoming Encounters Date Type Department Care Team (Late st Contact Info) Description 05/23/2024 Hospital [place] [address] Lexii Ceja MD [facility] OBSTETRICS [place] [address] Scheduled Referrals Name Type Priority Associated Diagnoses Orde r Schedule Referral to Physical Therapy Outpatient Referral Routine Left Shoulder Pain, Unspecified Chronicity Ordered: 02/27/2017 documented as of this encounter Visit Diagnoses Diagnosis Left shoulder pain, unspecified chronicity documented in this encounter Care Teams System Planning Engineer Relationship Specialty Start Date End Date Valencia Adhikari APRN [address] [place] [address] PCP - General 04/21/14 07/04/23 documented as of this encounter
--- OUTSIDE RECORDS SUMMARY | 2024-03-15 15:30 | XMS_ITS | Encounter Summary ---
Author Organization [facility] Address [facility] [place] [address] Care Team Providers Care Video Engineer Name Role Phone Valencia Adhikari APRN Primary Care Provider +1 [phone] Encounter Details Date Type Department Care Team (Latest Contact Info) Description 05/15/2017 10:47 AM EST - 05/15/2017 11:59 PM [facility] Hospital Encounter XRay at [address] [place] [address] Kedar Santos MD [facility] [place] [address] Left shoulder pain, unspecified chronicity Discharge Disposition: [...] Contact Info) Description 05/23/2024 [place] [address] Lexii Ceja MD [facility] DR OBSTETRICS [place] [address] documented as of this encounter Procedures Procedure [...] No soft tissue calcification. Procedure Note Lucy Wraner MD - 05/15/2017 EXAMINATION: XR SHOULDER LEFT [...] chronicity documented in this encounter Care Teams Video Engineer Relationship Specialty Start Date End Date Valencia Adhikari, DIGITAL MARKETING SPECIALIST [address] [place] [address] PCP - General 04/21/14 07/04/23 documented as of this encounter
--- OUTSIDE RECORDS SUMMARY | 2024-03-15 15:30 | XMS_ITS | Encounter Summary ---
Author Organization [facility] Address [facility] [place] [address] Care Team Providers Care Orthopedic Assistant Name Role Phone Valencia Adhikari APRN Primary Care Provider +1 [phone] Reason for Visit * Reason Onset Date Comments Other 06/07/2017 Encounter Details Date Type Department Care Team (Late st Contact Info) Description 06/07/2017 Telephone Care Management [facility] [place] [address] Carmina Marshall, CASTING COORDINATOR [facility] [place] [address] Other Social History Tobacco Use Types Packs/Day [...] Notes * Telephone Encounter - Carmina Marshall CASTING COORDINATOR - 06/07/2017 9:31 AM EST Images from the original note were not included. Pt was scheduled as a [facility] pt work up w/ on 06-05-17. Workers comp insurance is: [employer], DOI: 09-06-16, Employer: [employer]. assessment and tx plan recommendations are [...] with our office on an as-needed basis. [facility] was unable to attend this appt but will facilitate insurance's access to 's 2-20 note and wc form, in an effort to advocate for needed authorization for pain provider's tx recommendations. P: [facility] will be available for f/u intervention PRN. [facility] will request [facility] admin staff fax pain provider's 2-20 office note and wc form to: Jamin freight adjuster, w/ goal to expedite insurance's PA for 's tx plan recommendations.. ?? documented in this encounter Plan of Treatment Upcoming Encounters Date Type Department Care Team (Late st Contact Info) Description 05/23/2024 Hospital [place] [address] Lexii Ceja MD [facility] DR OBSTETRICS [place] [address] documented as of this encounter Visit Diagnoses Not on filedocumented in this encounter Care Teams Orthopedic Assistant Relationship Specialty Start Date End Date Valencia Adhikari APRN [address] [place] [address] PCP - General 04/21/14 07/04/23 documented as of this encounter
--- OUTSIDE RECORDS SUMMARY | 2024-03-15 15:30 | XMS_ITS | Encounter Summary ---
[place] [address] Care Team Providers Care Manager Express Name Role Phone Valencia Adhikari APRN Primary Care Provider +1 [phone] Reason for Referral * Surgical (Routine) - Specialty Diagnoses / Procedures Referred By Contac t Referred To Contact Diagnoses Chronic left shoulder pain Procedures Injection tendon or ligament Kiah Alvarez V [facility] [place] [address] Referral ID Status Reason Start Date Expiration Date V isits Requested Visits Authorized [id number] Consult, Test & Treat 07/05/2017 07/05/2018 1 1 * Surgical (Routine) - Specialty Diagnoses / Procedures Referred By Contac t Referred To Contact Diagnoses Biceps tendinitis, left Procedures Bursa Inject - Major (Shoulder,hip,knee) Kiah Alvarez V [facility] [place] [address] Referral ID Status Reason Start Date Expiration Date V isits Requested Visits Authorized [id number] Consult, Test & Treat 07/05/2017 07/05/2018 1 [...] 1 Valencia Adhikari APRN [address] [place] [address] Kiah Alvarez V [facility] [address] Referral ID Status Reason Start Date Expiration Date V isits Requested Visits Authorized [id number] 07/05/2017 07/05/2018 1 1 Encounter Details Date Type Department Care Team (Latest Contact Info) Description 07/05/2017 8:30 AM EDT Procedure [place] [address] Kiah Alvarez V [facility] [place] [address] Chronic left shoulder pain; Biceps tendinitis, left [...] No 2. Patient states they have a dolly driver to transport after procedure? Yes 3. [...] [facility] OR ??? 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 Smoking [...] any questions. Sincerely, KIAH ALVAREZ DO, MPH Job Placement Specialist of Anesthesiology/[employer] [facility] Precipitator, Pain Medicine Fellowship ABPM&R - Subspecialty board [...] CC: Valencia Adhikari APRN [address] [place] [address] documented in this encounter Procedure Notes * Kiah Alvarez DO - 07/05/2017 8:30 AM EDTAssociated Order(s): ARTHROCENTESIS,DRAIN/INJECT JOINT/BURSA Pre-Procedure Diagnose(s): Biceps tendinitis, left ULTRASOUND-GUIDED left LONG HEAD OF THE BICEPS TENDON AREA INJECTION PROCEDURE NOTE The patient complains of left shoulder pain. Dx: Bicipital tendinosis Ms. Hummel was greeted by the nurse who verified patient's name and . Ms. Hmumel was interviewed and the medical record reviewed. [...] the entire procedure. KIAH ALVAREZ DO, MPH Job Placement Specialist of Anesthesiology/[employer] [facility] Precipitator, Pain Medicine Fellowship ABPM&R - Subspecialty board certification in Pain Medicine CC: Valencia Adhikari APRN [address] [place] [address] documented in this encounter Plan of Treatment Upcoming Encounters Date Type Department Care Team (Late st Contact Info) Description 05/23/2024 Hospital [place] [address] Lexii Ceja MD [facility] DR OBSTETRICS [place] [address] Scheduled Orders Name Type Priority Associated Diagnoses [...] plans and appointments were discussed with Ms. Wallis-Tamara. ??Post procedure instruction was given. ?? Having met discharge criteria she was discharged from the [facility]. I was the attending physician supervising the resident in the above care and I was present with the resident for the entire procedure. KIAH ALVAREZ DO, MPH Job Placement Specialist of Anesthesiology/[employer] [facility] Precipitator, Pain Medicine Fellowship ABPM&R - Subspecialty board certification in Pain Medicine CC: Valencia Adhikari APRN [address] [place] [address] Kiah Jimenez DO PROCEDURE/MINOR SURG ICAL ORDERABLES [...] mg documented in this encounter Care Teams Manager Express Relationship Specialty Start Date End Date Valencia Adhikari APRN [address] [place] [address] PCP - General 04/21/14 07/04/23 documented as of this encounter
--- OUTSIDE RECORDS SUMMARY | 2024-03-15 15:30 | XMS_ITS | Encounter Summary ---
Author Organization [facility] Address [facility] [place] [address] Care Team Providers Care Long Wall Mining Machine Tender Name Role Phone Valencia Adhikari APRN Primary Care Provider [phone] [phone] Reason for Visit * Reason Comments Left Shoulder Pain DOI 09/06/16 * Consultation (Routine) - Closed Specialty Diagnoses / Procedures Referred By Contwillow t Referred To Contact Orthopaedics Diagnoses left shoulder pain Valencia Adhikari APRN [address] [place] [address] [facility] [address] [place] [phone] Referral ID Status Reason Start Date Expiration Date V isits Requested Visits Authorized [id number] Closed Consult, Test & Treat [facility] 01/17/2017 01/17/2018 1 1 Encounter Details Date Type Department Care Team (Late st Contact Info) Description 02/06/2017 9:00 AM EDT Office [place] [address] Kedar Santos MD [facility] [place] [address] Left shoulder pain, unspecified chronicity [...] complaint. HPI: The patient is a 26-year-old ynfah-mhnx-skmbaxsl female who comes in today complaining of [...] dementia carefacility. Pain is not relieved by [id number] anti- inflammatory medications. No other prior injuries. [...] performed by JUAN ESPARZA at [facility] OR ??? PRO THYROIDECTOMY, NYDIA, LTD NECK SURG 03/22/2011 THYROIDECTOMY, FOR MALIGNANCY, LIMITED NECK DISSECTION performed by JUAN ESPARZA at [facility] OR ??? TONSILLECTOMY 2010 ??? UPPER GASTROINTESTINAL ENDOSCOPY for IBS, celiac excluded ??? WISDOM TOOTH EXTRACTION Medications were reviewed with the patient today and are up to date. Family History: Negative for bleeding problems, blood clotting disorders, or problems with anesthesia. Social History: Denies tobacco use, denies alcohol use except occasionally. 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 Imaging studies: MRI [...] Kedar Santos MD [facility] Orthopaedic Surgery Pager: [phone] documented in this encounter Plan of Treatment Upcoming Encounters Date Type Department Care Team (Late st Contact Info) Description 05/23/2024 Hospital [place] [address] Sally Ceja MD [facility] [place] [address] documented as of this encounter Results * [...] pre- procedural time-out was performed as per [facility] protocol. The patient was placed supine on [...] glenohumeral joint space. 2. ??PAIN SCORE: ??Before: -/10 ??After: -01/23 3. Fluoroscopy time: 0.10 minutes [...] A pre- proceduraltime-out was performed as per [facility] protocol. The patient was placed supine on [...] pre- procedural time-out was performed as per [facility] protocol. The patient was placed supine on [...] pre- procedural time-out was performed as per [facility] protocol. The patient was placed supine on [...] chronicity documented in this encounter Care Teams Long Wall Mining Machine Tender Relationship Specialty Start Date End Date Valencia Adhikari APRN [address] [place] [address] PCP - General 04/21/14 07/04/23 documented as of this encounter
--- OUTSIDE RECORDS SUMMARY | 2024-03-15 15:30 | XMS_ITS | Encounter Summary ---
Author Organization [facility] Address [facility] [place] [address] Care Team Providers Care Wire Loop Machine Operator Name Role Phone Valencia Adhikari APRN Primary Care Provider +1 [phone] Encounter Details Date Type Department Care Team (Latest Contact Info) Description 02/06/2016 - 02/06/2016 12:04 AM EDT Hospital Encounter Radiology Library at [facility] [place] [address] Kedar Santos MD [facility] [place] [address] Discharge Disposition: Home Social History Tobacco Use [...] Description 05/23/2024 Hospital Encounter Birthing [facility] [place] [address] Lexii Ceja MD [facility] DR [place] [address] documented as of this encounter Procedures Procedure Name Priority Date/Time Associated Diagnosis Comments FILM LIBRARY STORAGE ONLY DX ELBOW Routine 02/06/2016 12:00 AM EDT documented in this encounter Results * Film Library- Storage Only DX Elbow (02/06/2016 12:00 AM EDT) Narrative [facility] - 05/17/2017 11:21 AM EST This exam is for storage only and is auto-finalizing. Kedar Santos MD IMG FILM LIBRARY ORD ERABLES [place], [place] documented in this encounter Visit Diagnoses Not on filedocumented in this encounter Care Teams Wire Loop Machine Operator Relationship Specialty Start Date End Date Valencia Adhikari APRN [address] [place] [address] PCP - General 04/21/14 07/04/23 documented as of this encounter
--- OUTSIDE RECORDS SUMMARY | 2024-03-15 15:30 | XMS_ITS | Encounter Summary ---
Author Organization [facility] [place] [address] Care Team Providers Care Loin Trimmer Name Role Phone OnofreValencia pitts Oralia SLADE Primary Care Provider +1 -[phone] Encounter Details Date Type Department Care Team (Late st Contact Info) Description 08/09/2017 Orders Only Psychiatry [place] [address] Argelia Mccray APRN [facility] [place] [address] Depression, unspecified depression type Social History Tobacco [...] Info) Description 05/23/2024 Hospital [place] [address] Lexii Ceja MD [facility] DR OBSTETRICS [place] [address] documented as of this encounter Visit Diagnoses Diagnosis Depression, unspecified depression type documented in this encounter Care Teams Loin Trimmer Relationship Specialty Start Date End Date Valencia Adhikari APRN [address] [place] [address] PCP - General 04/21/14 07/04/23 documented as of this encounter
--- OUTSIDE RECORDS SUMMARY | 2024-03-15 15:30 | XMS_ITS | Encounter Summary ---
Author Organization [facility] Address [facility] [place] [address] Care Team Providers Care Maternal Child Nurse Name Role Phone Valencia Adhikari APRN Primary Care Provider +1 -[phone] Reason for Visit * Reason Comments Left Shoulder Pain workers comp DOI Encounter Details Date Type Department Care Team (Late st Contact Info) Description 04/03/2017 9:30 AM EST Office [place] [address] Kedar Santos MD [facility] DR OR[place] [address] Chronic left shoulder pain Social History Tobacco [...] Contact Info) Description 05/23/2024 Hospital [place] [address] Lexii Ceja MD [facility] DR OBSTETRICS [place] [address] documented as of this encounter Visit Diagnoses Diagnosis Chronic left shoulder pain Pain in joint, shoulder region documented in this encounter Care Teams Maternal Child Nurse Relationship Specialty Start Date End Date Valencia Adhikari APRN [address] [place] [address] PCP - General 04/21/14 07/04/23 documented as of this encounter
--- OUTSIDE RECORDS SUMMARY | 2024-03-15 15:30 | XMS_ITS | Encounter Summary ---
Author Organization [facility] Address [facility] [place] [address] Care Team Providers Care Pony Rougher Name Role Phone Valencia Adhikari APRN Primary Care Provider +1 -[phone] Reason for Visit * Reason Comments Vaginitis Follow-up Encounter Details Date Type Department Care Team (Late st Contact Info) Description 05/08/2016 1:00 PM EST Office Visit Obstetrics [place] [address] Valencia [place]ne [facility] OBSTETRICS [place] [address] Acute pelvic pain, female (Primary Dx) Social [...] 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, and doesn't know if she felt them [...] Contact Info) Description 05/23/2024 [place] [address] Lexii Ceja MD [facility] DR OBSTET[place] [address] documented as of this encounter Procedures Procedure Name Priority Date/Time Associated Diagnosis Comments GC/CHLAMYDIA Routine 05/08/2016 5:19 PM EST Acute pelvic pain, female GC/CHLAM Routine 05/08/2016 5:19 PM EST Acute pelvic pain, female documented in this encounter Results * GC/Chlam (05/08/2016 5:19 PM EST) GC Gene Amp Negative Negative [facility] Comment: The only FDA approved specimen types for this assay are cervix, vagina, urethra and urine. GC Source Cervical [facility] Chlamydia Gene Amp Negative Negative [facility] Comment: The only FDA approved specimen types for this assay are cervix, vagina, urethra and urine. Chlm Source Cervical [facility] Cervical swab (specimen) 05/08/2016 5:19 PM EST 05/08/2016 5:19 PM EST Narrative Resulting Agency Comment Spec In Lab Richard Stallings MD MICROBIOLOGY - GENER AL ORDERABLES Performing Organization Address City/State/[facility] Co de Phone Number [facility] [place] [address] * US Transvaginal Non OB (05/08/2016 2:22 [...] 02:35 pm) PATIENT INFO: ID #: ? [id number] ?: ??[birth year] (25 yrs) Name: ? PREETHI Godoy ? Visit Date: 05/08/2016 02:20 pm ? LOUISE- ? FRANK PERFORMED BY: Performed By: ? Teja HARVEY, Itzel Attending: ?Anca LIMA, Phylicia J. Referred By: ?RICHARD STALLINGS MD Location: ? [facility] SERVICE(S) PROVIDED: ??UTV - Transvaginal - [id number] ?[id number] ??U3D - ??3D rendering with interpretation - [id number] ? [id number] INDICATIONS: ??pelvic pain with IUD in place [...] 05/08/2016 02:35 pm) PATIENT INFO: ID #: [id number] : [birth year] (25 yrs) Name: PREETHI Godoy Visit Date: 05/08/2016 02:20 pm MARIO MARIE PERFORMED BY: Performed By: Itzel Lezama RDMS Attending: Phylicia March MD Referred By: RICHARD STALLINGS MD Location: [facility] SERVICE(S) PROVIDED: UTV - Transvaginal - [id number] U3D - 3D rendering with interpretation - [id number] INDICATIONS: pelvic pain with IUD in place [...] organs documented in this encounter Care Teams Pony Rougher Relationship Specialty Start Date End Date Valencia Adhikari, MOLD REPAIRER [address] [place] [address] PCP - General 04/21/14 07/04/23 documented as of this encounter
--- OUTSIDE RECORDS SUMMARY | 2024-03-15 15:30 | XMS_ITS | Encounter Summary ---
Author Organization [facility] [place] [address] Care Team Providers Care Campus Dean Name Role Phone Valencia Adhikari APRN Primary Care Provider +1 [phone] Reason for Visit * Reason Comments Bipolar Disorder Encounter Details Date Type Department Care Team (Late st Contact Info) Description 08/30/2017 9:00 AM EDT Office Visit Psychiatry [place] [phone] Argelia Mccray COMPOSING ROOM MACHINIST APPRENTICE [facility] [place] [address] Anxiety; Depression, unspecified depression type Social History [...] this encounter Progress Notes * Argelia Mccray, COMPOSING ROOM MACHINIST APPRENTICE - 08/30/2017 9:00 AM EDT ESTABLISHED ADULT [...] intact during interview ? Language: Normal/fluent in Italian ? Fund of Knowledge: Appropriate Psychotherapeutic Interventions [...] Contact Info) Description 05/23/2024 Hospital [place] [address] Lexii Ceja MD [facility] OBSTETRICS [place] [address] documented as of this encounter Procedures Procedure [...] 10:05 AM EDT) Neutrophil % 63.1 % [facility] Neutrophil Absolute 5.14 1.70 - 6.10 x10(3)/[facility] LAB[facility] Lymph % 24.4 % [facility] Lymphocytes Abs 2.0 0.9 - 3.2 x10(3)/[facility]OR[facility] Monocyte % 10.0 % [facility] Monocyte Abs 0.8 0.3 - 0.9 x10(3)/[facility] LABORATORY Eos % 1.5 % [facility] Eosinophils Abs 0.1 0.0 - 0.4 x10(3)/[facility]OR[facility]ORY Basophil % 0.6 % [facility] Baso Absolute 0.0 0.0 - 0.1 x10(3)/[facility] LABOR[facility]ORY Immature Gran % 0.40 % [facility] Comment: Immature granulocytes(IG's)percentage and absolute count will include metamyelocytes, myelocytes, and promyelocytes. Blood smears from CBCs yielding IG's will be scanned manually for concordance. If this scan disagrees with the automated IG or if promyelocytes are noted, a manual differential will be performed. Immature Gran Absolute 0.03 0.00 - 0.04 x10(3)/[facility] LABORATORY Blood specimen (specimen) 08/30/2017 10:05 AM EDT 08/30/2017 10:13 AM EDT Narrative Resulting Agency Comment Spec In Lab Argelia Mccray APRN HEMATOLOGY [facility] [place] [address] * (ABNORMAL) Hemogram (08/30/2017 10:05 AM EDT) White Blood Cell 8.1 4.0 - 9.5 x10(3)/ L [facility] Red Blood Cell 3.98(L) 4.00 - 5.21 x10(6)/mc L [facility] Hemoglobin 13.6 11.7 - 15.5 gm/dL [facility] Hematocrit 40.5 35.7 - 45.8 % [facility] Mean Cell Volume 101.8(H) 82.6 - 94.4 fL [facility] Mean Cell Hemoglobin 34.2(H) 27.1 - 32.0 pg [facility] Mean Cell Hemoglobin Concentration 33.6 31.7 - 35.0 gm/dL [facility] Platelet 185 145 - 357 x10(3)/mc L [facility] RDW Standard Deviation 48.9(H) 37.0 - 46.0 fL [facility] RDW coefficient of variation 12.9 11.5 - 14.1 % [facility] Mean Platelet Volume 11.6 7.6 - 12.9 fL [facility] NRBC% auto 0.0 % [facility] NRBC Absolute 0.000 0.000 - 0.000 x10(3)/mc L [facility] Blood specimen (specimen) 08/30/2017 10:05 AM EDT 08/30/2017 10:13 AM EDT Narrative Resulting Agency Comment Spec In Lab Argelia Naranjo Shazia SLADE HEMATOLOGY ORDE RABLES Performing Organization Address [facility]/ZIP Co de Phone Number [facility] [place] [address] * (ABNORMAL) Lamotrigine Lvl (08/30/2017 10:05 AM EDT) Lamotrigine Lvl (AUGUST) 1.9(L) 2.5 - 15.0 mcg/mL [facility] Comment: ADDITIONAL INFORMATION This test was developed and its performance characteristics determined by [facility] in a manner consistent with CLIA requirements. This test has not been cleared or approved by the U.S. Food and Drug Administration. Test Performed by: [facility] [address] [place] [address] Blood specimen (specimen) 08/30/2017 10:05 AM EDT 08/30/2017 1:24 PM EDT Narrative Resulting Agency Comment Spec In Lab Argelia Mccray APRN LAB SEND OUT OR DERABLES Performing Organization Address City/[facility]/ZIP Co de Phone Number [facility] [place] [address] * Vitamin D, 25-Hydroxy (08/30/2017 10:05 AM EDT) Vitamin D Total 25 OH 33 30 - 100 ng/mL [facility] Comment: Deficient <10 ng/mL Insufficient 10 to 29 ng/mL Sufficient 30 to 100 ng/mL Potential Intoxication >100 ng/mL According to the US National Osteoporosis Foundation, Vitamin D concentrations >30 ng/mL are sufficient to protect bone health. ??The National Kidney Foundation has similarly stated that patients with Vitamin D concentrations <30ng/mL should be considered to be insufficient or deficient. http://Soevolved/nkf-guidelines http://Soevolved/nejm-VitD The IDS iSYS Vitamin D Immunoassay detects both 25-OH Vitamin D2 and 25-OH Vitamin D3, but only a total Vitamin D concentration is reported. Blood specimen (specimen) 08/30/2017 10:05 AM EDT 08/30/2017 1:29 PM EDT Narrative Resulting Agency Comment Spec In Lab Zaynabjeff Naranjo Shazia SLADE CHEMISTRY ORDER AMANDA [facility] [place] [address] * (ABNORMAL) Comprehensive metabolic panel (non-fasting) (08/30/2017 10:05 AM EDT) Glucose 85 65 - 199 mg/dL [facility] Comment:Diabetes: >=200 mg/d L plus symptoms Blood Urea Nitrogen 7(L) 8 - 18 mg/dL [facility] Creatinine 0.68(L) 0.70 - 1.20 mg/dL [facility] Sodium 138 135 - 145 mmol/L [facility] Potassium 4.5 3.5 - 5.0 mmol/L [facility] Comment: Please note: ??Patients with WBC >100,000 may have falsely elevated Potassium levels. ??For accurate Potassium quantification in these patients send serum separator tube (gold top) for subsequent determinations. ??Contact the Clinical Chemistry Laboratory if there are any questions. Chloride 102 98 - 107 mmol/L [facility] Carbon Dioxide 27 22 - 31 mmol/L [facility] Anion Gap 9 5 - 15 mmol/L [facility] Calcium 8.8 8.5 - 10.5 mg/dL [facility] Protein, Total 6.3 6.1 - 8.0 gm/dL [facility] Albumin 4.5 3.2 - 5.2 gm/dL [facility] Aspartate Aminotransferase 12 0 - 30 unit/L [facility] Alanine Aminotransferase 9 0 - 30 unit/L [facility] Alkaline Phosphatase 70 40 - 104 unit/L [facility] Bilirubin, Total 0.5 0.2 - 1.3 mg/dL [facility] Est Glomerular Filtration Rate >60 >=60 [facility] Comment: The reported eGFR should be multiplied by 1.2 for patients. The MDRD is not an appropriate measure of renal function for patients with body mass extremes or in patients with acute kidney failure. http://Soevolved/DHnkdep http://Soevolved/DHMCnkf Blood specimen (specimen) 08/30/2017 10:05 AM EDT 08/30/2017 10:13 AM EDT Narrative Resulting Agency Comment Spec In Lab Argelia Naranjo Shazia ABREUN CHEMISTRY ORDER AMANDA Performing Organization Address City/[facility]/ZIP Co de Phone Number [facility] [place] [address] * (ABNORMAL) TSH (08/30/2017 10:05 AM EDT) Thyroid Stimulating Hormone 15.40(H) 0.27 - 4.20 mlU/ML [facility] Blood specimen (specimen) 08/30/2017 10:05 AM EDT 08/30/2017 10:13 AM EDT Narrative Resulting Agency Comment Spec In Lab Argelia Naranjo Shazia ABREUN CHEMISTRY ORDER AMANDA [facility] [place] [address] * Thyroglobulin Antibody (08/30/2017 10:05 AM EDT) Thyroglob Ab <20.0 0.0 - 40.0 IU/mL [facility] Comment: Assay performed is the DPC Immulite Tg-Ab immunometric assay. (Cutoff for TgAb negativity is <20 IU/ml) Blood specimen (specimen) 08/30/2017 10:05 AM EDT 08/30/2017 1:39 PM EDT Narrative Resulting Agency Comment Spec In Lab Argelia Mccray [facility] LAB SEND OUT OR DERABLES Performing Organization Address City/[facility]/ZIP Co de Phone Number [facility] [place] [address] * T4, free (08/30/2017 10:05 AM EDT) Pathologist [facility] Free T4 1.58 0.93 - 1.70 ng/dL [facility] Blood specimen (specimen) 08/30/2017 10:05 AM EDT 08/30/2017 10:13 AM EDT Narrative Resulting Agency Comment Spec In Lab Argelia Levinetamardelilah COMPOSING ROOM MACHINIST APPRENTICE CHEMISTRY ORDER AMANDA Performing Organization Address [facility] Co de Phone Number [facility] [place] [address] * T4 Total (08/30/2017 10:05 AM EDT) Pathologist [facility] T4 Total 7.4 5.1 - 10.8 mcg/dL [facility] Comment: Reference Range: [place] Blood: ??6.9-14.4 mcg/dL Females: ??7.2-14.2 mcg/dL Pediatric ranges: ??Interpret with caution-ranges have not been verified Blood specimen (specimen) 08/30/2017 10:05 AM EDT 08/30/2017 10:13 AM EDT Narrative Resulting Agency Comment Spec In Lab Argelia Levineaga SLADE CHEMISTRY ORDER AMANDA Performing Organization Address City/[facility]/ZIP Co de Phone Number [facility] [place] [address] * T3, free (08/30/2017 10:05 AM EDT) Free T3 2.8 2.0 - 4.4 pg/mL [facility] Blood specimen (specimen) 08/30/2017 10:05 AM EDT 08/30/2017 10:13 AM EDT Narrative Resulting Agency Comment Spec In Lab Argelia Mccray COMPOSING ROOM MACHINIST APPRENTICE CHEMISTRY ORDER AMANDA [facility] [place] [address] documented in this encounter Visit Diagnoses Diagnosis Anxiety Anxiety state, unspecified Depression, unspecified depression type documented in this encounter Care Teams Campus Dean Relationship Specialty Start Date End Date Valencia Adhikari APRN [address] [place] [address] PCP - General 04/21/14 07/04/23 documented as of this encounter
--- OUTSIDE RECORDS SUMMARY | 2024-03-15 15:30 | XMS_ITS | Encounter Summary ---
[facility] [place] [address] Care Team Providers Care Shaft Tender Name Role Phone Valencia Adhikari APRN Primary Care Provider +1 [phone] Encounter Details Date Type Department Care Team (Latest Contact Info) Description 04/12/2016 10:00 AM EST - 04/12/2016 11:59 PM [facility] Hospital Encounter [place] [address] Valencia Adhikari APRN [address] [place], [place] [address] Galactorrhea Discharge Disposition: Home Social History Tobacco [...] Description 05/23/2024 Hospital Encounter Birthing [facility] [place] [phone] Lexii Ceja MD [facility] DR OBSTETRICS [place] [address] documented as of this encounter Procedures Procedure [...] childbirth documented in this encounter Care Teams Shaft Tender Relationship Specialty Start Date End Date Valencia Adhikari APRN [address] [place] [address] PCP - General 04/21/14 07/04/23 documented as of this encounter
--- OUTSIDE RECORDS SUMMARY | 2024-03-15 15:30 | XMS_ITS | Encounter Summary ---
Author [place] [address] Care Team Providers Care Psych Nurse Name Role Phone Valencia Adhikari APRN Primary Care Provider +1 -[phone] Reason for Referral * Diagnostic Test (Routine) - Closed Specialty Diagnoses / Procedures Referred By Lamont riggins Referred To Contact Radiology Diagnoses Paresthesias/numbness Procedures MRI Brain wwo Contrast (Generic) Joceline Bustillo APRN [address] [place] [address] [place] [address] Referral ID Status Reason Start Date Expiration Date V isits Requested Visits Authorized [id number] Closed Specialty Service Requested 01/12/2017 01/12/2018 1 1 Reason for Visit * Diagnostic Test (Routine) - Closed Specialty Diagnoses / Procedures Referred By Contac gilson Referred To Contact Radiology Diagnoses Paresthesias/numbness Procedures MRI Brain wwo Contrast (Generic) Joceline Bustillo APRN [address] [place] [address] [place] [address] Referral ID Status Reason Start Date Expiration Date V isits Requested Visits Authorized [id number] Closed Specialty Service Requested 01/12/2017 01/12/2018 1 1 Encounter Details Date Type Department Care Team (Latest Contact Info) Description 02/09/2017 8:18 AM EDT - 02/09/2017 11:59 PM EDT Hospital [place] [address] Joceline Bustillo APRN [address] [place] [address] Paresthesias/numbne ss Discharge Disposition: Home Social History [...] Contact Info) Description 05/23/2024 [place] [phone] Lexii Ceja MD [facility] DR OBSTETRICS [place] [address] documented as of this encounter Procedures Procedure [...] mLs documented in this encounter Care Teams Psych Nurse Relationship Specialty Start Date End Date Valencia Adhikari APRN [address] [place] [address] PCP - General 04/21/14 07/04/23 documented as of this encounter
--- OUTSIDE RECORDS SUMMARY | 2024-03-15 15:30 | XMS_ITS | Encounter Summary ---
Author Organization [facility] Address [facility] [place] [address] Care Team Providers Care Coroner/Medical Examiner Name Role Phone Valencia Adhikari APRN Primary Care Provider +1 -[phone] Encounter Details Date Type Department Care Team (Latest Contact Info) Description 10/23/2016 - 10/23/2016 11:59 PM EDT Hospital Encounter Radiology Library at [facility] [place] [phone] Kedar Santos MD [facility] [place] [address] Discharge Disposition: Home Social History Tobacco Use [...] Encounter Birthing [facility] [place] [address] Lexii Ceja MD [facility] DR OBSTETRICS [place] [address] documented as of this encounter Procedures Procedure [...] Santos MD IM FILM LIBRARY ORD ERABLES [place], [place] documented in this encounter Visit Diagnoses Not on filedocumented in this encounter Care Teams Coroner/Medical Examiner Relationship Specialty Start Date End Date Valencia Adhikari APRN [address] [place] [address] PCP - General 04/21/14 07/04/23 documented as of this encounter
--- OUTSIDE RECORDS SUMMARY | 2024-03-15 15:30 | XMS_ITS | Encounter Summary ---
Author Organization Count Includes [facility] Address [facility] [place] [address] Care Team Providers Care Mail Sorter And Delivery Name Role Phone Valencia Adhikari APRN Primary Care Provider +1 -[phone] Reason for Visit * Reason Onset Date Comments Questions 05/17/2017 Encounter Details Date Type Department Care Team (Late Contact Info) Description 05/17/2017 Telephone [place] [phone] Kedar Santos MD [facility] [place] [address] Questions Social History Tobacco Use Types Packs/Day [...] the patient who advised the images from [facility] ( MRI and XR ) will be sent to [facility] today documented in this encounter Plan of Treatment Upcoming Encounters Date Type Department Care Team (Late st Contact Info) Description 05/23/2024 [facility] [place] [phone] Lexii Ceja MD [facility] DR OBSTETRICS [place] [address] documented as of this encounter Visit Diagnoses Not on filedocumented in this encounter Care Teams Mail Sorter And Delivery Relationship Specialty Start Date End Date Valencia Adhikari APRN [address] [place] [address] PCP - General 04/21/14 07/04/23 documented as of this encounter
--- OUTSIDE RECORDS SUMMARY | 2024-03-15 15:30 | XMS_ITS | Encounter Summary ---
Author Organization [facility] Address [facility] [place] [address] Care Team Providers Care Php Consultant Name Role Phone Valencia Adhikari APRN Primary Care Provider +1 -[phone] Encounter Details Date Type Department Care Team (Latest Contact Info) Description 02/06/2016 12:10 AM EDT - 02/06/2016 11:59 PM EDT Hospital Encounter Radiology Library at [facility] [place] [phone] Kedar Santos MD [facility] ORTHOPAEDIC [place] [address] Discharge Disposition: Home Social History Tobacco Use [...] Info) Description 05/23/2024 Hospital Encounter Birthing [facility] [place] [address] Lexii Ceja MD [facility] DR OBSTETRICS [place] [address] documented as of this encounter Procedures Procedure Name Priority Date/Time Associated Diagnosis Comments FILM LIBRARY STORAGE ONLY CT ELBOW Routine 02/06/2016 12:10 AM EDT documented in this encounter Results * Film Library- Storage Only CT Elbow (02/06/2016 12:10 AM EDT) Narrative [facility] - 05/17/2017 11:25 AM EST This exam is for storage only and is auto-finalizing. Kedar Santos MD IMG FILM LIBRARY ORD ERABLES [place], [place] documented in this encounter Visit Diagnoses Not on filedocumented in this encounter Care Teams Php Consultant Relationship Specialty Start Date End Date Valencia Adhikari APRN [address] [place] [address] PCP - General 04/21/14 07/04/23 documented as of this encounter
--- OUTSIDE RECORDS SUMMARY | 2024-03-15 15:30 | XMS_ITS | Encounter Summary ---
[place] [address] Care Team Providers Care Rand Cementer Name Role Phone Valencia Adhikari APRN Primary Care Provider [phone] -[phone] Reason for Visit * Reason Onset Date Comments Pre Procedure Call 07/03/2017 Encounter Details Date Type Department Care Team (Late st Contact Info) Description 07/03/2017 [place] [address] Valentina Rincon LNA Pre Procedure Call Social [...] instructed to arrive at 8:00AM on 07/05/2017. Canoe Inspector: The patient was reminded that they need to have a winch driver accompany them to her procedure who [...] No Prior to checking in at 3D Resource Room Teacher, please be sure to empty your bladder. Patient confirmed understanding that if they do not follow the above their instructions, their procedure is likely to be cancelled. KIERAN Earl documented in this encounter Plan of Treatment Upcoming Encounters Date Type Department Care Team (Late st Contact Info) Description 05/23/2024 Hospital [place] [phone] Lexii Ceja MD [facility] OBSTETRICS [place] [address] documented as of this encounter Visit Diagnoses Not on filedocumented in this encounter Care Teams Rand Cementer Relationship Specialty Start Date End Date Valencia Adhikari APRN [address] [place] [address] PCP - General 04/21/14 07/04/23 documented as of this encounter
--- OUTSIDE RECORDS SUMMARY | 2024-03-15 15:30 | XMS_ITS | Encounter Summary ---
Author Organization [facility] Address [facility] [place] [address] Care Team Providers Care Air Deodorizer Servicer Name Role Phone Valencia Adhikari APRN Primary Care Provider +1 -[phone] Encounter Details Date Type Department Care Team (Latest Contact Info) Description 02/06/2016 12:05 AM EDT - 02/06/2016 12:09 AM EDT Hospital Encounter Radiology Library [place] [facility] [place] [phone] Kedar Santos MD [facility] [place] [address] Discharge Disposition: Home Social History Tobacco Use [...] Birthing [facility] [place] [address] Lexii Ceja MD [facility] DR OBSTETRICS [place] [address] documented as of this encounter Procedures Procedure Name Priority Date/Time Associated Diagnosis Comments FILM LIBRARY STORAGE ONLY DX SHOULDER Routine 02/06/2016 12:05 AM EDT documented in this encounter Results * Film Library- Storage Only DX Shoulder (02/06/2016 12:05 AM EDT) Narrative [facility] - 05/17/2017 11:23 AM EST This exam is for storage only and is auto-finalizing. Kedar Santos MD IMG FILM LIBRARY ORD ERABLES [place], [place] documented in this encounter Visit Diagnoses Not on filedocumented in this encounter Care Teams Air Deodorizer Servicer Relationship Specialty Start Date End Date Valencia Adhikari APRN [address] [place] [address] PCP - General 04/21/14 07/04/23 documented as of this encounter
--- OUTSIDE RECORDS SUMMARY | 2024-03-15 15:30 | XMS_ITS | Encounter Summary ---
Author Organization Counts Include [facility] Address [facility] [place] [address] Care Team Providers Care Motor Setter Name Role Phone Valencia Adhikari APRN Primary Care Provider +1 [phone] Encounter Details Date Type Department Care Team (Latest Contact Info) Description 05/08/2016 1:58 PM EST - 05/08/2016 11:59 PM EST Hospital En[place] [phone] Richard Stallings MD [facility] OBSTETRICS & [place] [address] Acute pelvic pain, female Discharge Disposition: Home [...] Contact Info) Description 05/23/2024 Hospital En[place] [address] Lexii Ceja MD [facility] DR OBSTETRICS [place] [address] documented as of this encounter Procedures Procedure [...] 02:35 pm) PATIENT INFO: ID #: ? [id number] ?: ??[birth year] (25 yrs) Name: ? ANDREE Godoy ? Visit Date: 05/08/2016 02:20 pm ? LOUISE- ? FRANK PERFORMED BY: Performed By: ? Itzel Lezama RDMS Attending: ?Anca LIMA, Phylicia Guzman. Referred By: ?RICHARD STALLINGS MD Location: ? [place] SERVICE(S) PROVIDED: ??UTV - Transvaginal - [id number] ?[id number] ??U3D - ??3D rendering with interpretation - [id number] ? [id number] INDICATIONS: ??pelvic pain with IUD in place [...] 05/08/2016 02:35 pm) PATIENT INFO: ID #: [id number] : [birth year] (25 yrs) Name: ANDREE Godoy Visit Date: 05/08/2016 02:20 pm MARIO MARIE PERFORMED BY: Performed By: Itzel Lezama RDMS Attending: Phylicia March MD Referred By: RICHARD STALLINGS MD Location: [place] SERVICE(S) PROVIDED: UTV - Transvaginal - [id number] U3D - 3D rendering with interpretation - [id number] INDICATIONS: pelvic pain with IUD in place [...] organs documented in this encounter Care Teams Motor Setter Relationship Specialty Start Date End Date Valencia Adhikari, [place] [address] [place] [address] PCP - General 04/21/14 07/04/23 documented as of this encounter
--- OUTSIDE RECORDS SUMMARY | 2024-03-15 15:30 | XMS_ITS | Encounter Summary ---
Author Organization [facility] [place] [address] Care Team Providers Care Concrete Mixer Name Role Phone Valencia Adhikari APRN Primary Care Provider [phone] Reason for Visit * Reason Comments Bipolar Disorder Depression Anxiety Encounter Details Date Type Department Care Team (Late st Contact Info) Description 08/16/2017 11:00 AM EDT Office Visit Psychiatry [place] [phone] Argelia Mccray APRN [facility] [place] [address] Bipolar affective disorder, remission status unspecified; Anxiety [...] in this encounter Progress Notes * MichaeldelilahArgelia, AROMATHERAPIST - 08/16/2017 11:00 AM EDT ESTABLISHED ADULT [...] expresses her fear that her son will wood turner like his biological father, who has [...] Description 05/23/2024 [place] [phone] Lexii Ceja MD [facility] DR OBSTETRICS [place] [address] documented as of this encounter Visit Diagnoses Diagnosis Bipolar affective disorder, remission status unspecified Anxiety Anxiety state, unspecified documented in this encounter Care Teams Concrete Mixer Relationship Specialty Start Date End Date Valencia Adhikari APRN [address] [place] [address] PCP - General 04/21/14 07/04/23 documented as of this encounter
--- OUTSIDE RECORDS SUMMARY | 2024-03-15 15:30 | XMS_ITS | Encounter Summary ---
Author Organization [facility] [place] [address] Care Team Providers Care Manager Laundry Name Role Phone OnofreValencia pitts BER[place] Primary Care Provider +1 [phone] Encounter Details Date Type Department Care Team (Late st Contact Info) Description 12/01/2016 External [place] [phone] Isaac Osorio MD [facility] [place] [address] Social History Tobacco Use Types Packs/Day Years [...] Contact Info) Description 05/23/2024 [place] [phone] Lexii Ceja MD [facility] DR OBSTETRICS [place] [address] documented as of this encounter Procedures Procedure Name Priority Date/Time Associated Diagnosis Comments EMG SCAN Routine 12/01/2016 documented in this encounter Results * Scan Doc: EMG (12/01/2016) Isaac Osorio MD MEDIA MGR SCAN EXT O RDR/RSLT documented in this encounter Visit Diagnoses Not on filedocumented in this encounter Care Teams Manager Laundry Relationship Specialty Start Date End Date Valencia Adhikari APRN [address] [place] [address] PCP - General 04/21/14 07/04/23 documented as of this encounter
--- OUTSIDE RECORDS SUMMARY | 2024-03-15 15:30 | XMS_ITS | Encounter Summary ---
Author Organization [facility] [place] [address] Care Team Providers Care Dust Collector Name Role Phone OnofreValencia pitts Oralia SLADE Primary Care Provider [phone] [phone] Encounter Details Date Type Department Care Team (Late st Contact Info) Description 09/05/2017 Orders Only Psychiatry [place] [phone] Argelia Mccray APRN [facility] [place] [address] Depression, unspecified depression type Social History Tobacco [...] Info) Description 05/23/2024 Hospital [place] [address] Lexii Ceja MD [facility] DR OBSTET[place]ICS [place] [address] documented as of this encounter Visit Diagnoses Diagnosis Depression, unspecified depression type documented in this encounter Care Teams Dust Collector Relationship Specialty Start Date End Date Valencia Adhikari APRN [address] [place] [address] PCP - General 04/21/14 07/04/23 documented as of this encounter
--- OUTSIDE RECORDS SUMMARY | 2024-03-15 15:31 | XMS_ITS | Encounter Summary ---
Author Organization [facility] Address [facility] [place] [address] Care Team Providers Care Water Treatment Operator Name Role Phone None Primary Care Provider Unavailabl e Encounter Details Date Type Department Care Team (Latest Contact Info) Description 09/15/2012 10:09 AM EDT - 09/15/2012 11:59 PM EDT Hospital [place] [phone] Griffin Allen MD [facility] PEDIATRICS/[place] [address] Discharge Disposition: Home Social History Tobacco Use [...] Contact Info) Description 05/23/2024 Hospital [place] [address] Lexii Ceja MD [facility] DR OBSTETRICS [place] [address] documented as of this encounter Procedures Procedure Name Priority Date/Time Associated Diagnosis Comments SURGICAL PATHOLOGY REPORT Routine 09/15/2012 10:31 AM EDT documented in this encounter Results * Surgical Pathology Report (09/15/2012 10:31 AM EDT) Surgical Pathology Report ? [facility] ? Provider: ?? GRIFFIN ALLEN ??Pt. Name: ?? ANDREE HUMMEL ? E ? Acc #: ?[id number] ?Pt. ? Col Date: ?? 09/15/2012 ?/Sex: [...] Description: Intact discoid, locke placenta. ?Membranes: ? Sumner and semitransparent with 100 percent marginal ? [...] born at home. ??Respiratory distress, hypotonia. ? [facility] ? Provider: ?? GRIFFIN ALLEN ??Pt. Name: ?? ANDREE HUMMEL ? E ? Acc #: ?[id number] ?Pt. ? Col Date: ?? 09/15/2012 ?/Sex: ?1990,(22 years),Female ? Rec Date: ?? 09/16/2012 ?LOC: ?OPW ? SURGICAL PATHOLOGY ? Clinical Diagnosis: ? Same [facility] 09/15/2012 10:3 1 AM EDT Griffin Allen MD PATHOLOGY/CYTOLOGY ORDERABLES [facility] documented in this encounter Visit Diagnoses Not on filedocumented in this encounter Care Teams Water Treatment Operator Relationship Specialty Start Date End Date None None PCP - General 05/08/12 04/20/14 documented as of this encounter
--- OUTSIDE RECORDS SUMMARY | 2024-03-15 15:31 | XMS_ITS | Encounter Summary ---
Author Organization [facility] [place] [address] Care Team Providers Care Boss Miner Name Role Phone None Primary Care Provider Unavailabl e Encounter Details Date Type Department Care Team (Late st Contact Info) Description 04/15/2014 Orders [place] [phone] Joshua Padron MD [facility] [place] [address] Social History Tobacco Use Types Packs/Day Years [...] Contact Info) Description 05/23/2024 Hospital [place] [address] Lexii Ceja MD [facility] OBSTETRICS [place] [address] documented as of this encounter Procedures Procedure [...] on filedocumented in this encounter Care Teams Boss Miner Relationship Specialty Start Date End Date None None PCP - General 05/08/12 04/20/14 documented as of this encounter
--- OUTSIDE RECORDS SUMMARY | 2024-03-15 15:31 | XMS_ITS | Encounter Summary ---
Author Organization [facility] [place] [address] Care Team Providers Care Double End Tenon Operator Name Role Phone Valencia Adhikari APRN Primary Care Provider [phone] [phone] Encounter Details Date Type Department Care Team (Late st Contact Info) Description 04/01/2015 9:00 AM EST Office Visit Obstetrics [place] [phone] Pam Chaidez APRN [facility] OBSTETRICS [place] [address] Nipple discharge in female (Primary Dx); Possible [...] encounter Progress Notes * Анна, Pam M, PHYSICAL LABORATORY ASSISTANT - 04/01/2015 8:45 AM EST REASON FOR [...] was removed without difficulty and as per alumni relations manager instructions. Pt tolerated the procedure well. The [...] Info) Description 05/23/2024 Hospital En[place] [phone] Lexii Ceja MD [facility] DR OBSTETRICS [place] [address] documented as of this encounter Procedures Procedure [...] * GC/Chlam (04/01/2015 10:09 AM EST) Pathologist [facility] GC Gene Amp Negative Negative [facility] Comment: The only FDA approved specimen types for this assay are cervix, vagina, urethra and urine. ??The sensitivity and specificity of the assay for other specimen types has not been determined. GC Source Urine [facility] Chlamydia Gene Amp Negative Negative [facility] Comment: The only FDA approved specimen types for this assay are cervix, vagina, urethra and urine. ??The sensitivity and specificity of the assay for other specimen types has not been determined. Chlm Source Urine [facility] Urine specimen (specimen) 04/01/2015 10:09 AM EST 04/01/2015 10:19 AM EST Narrative Resulting Agency Comment Spec In Lab Richard Faust MD MICROBIOLOGY - GENER AL ORDERABLES [facility] * Beta HCG, quantitative (04/01/2015 10:02 AM EST) [facility] Beta Human Chorionic Gonadotropin, Quantitative <1 mlU/ML [facility] Comment: REFERENCE RANGES NON- FEMALE: ??Less [...] Faust MD CHEMISTRY ORDERABLES Performing Organization Address [facility] Co de Phone Number [facility] * Prolactin (04/01/2015 10:02 AM EST) Pathologist [facility] Prolactin 21.1 4.8 - 23.3 ng/mL [facility] Blood specimen (specimen) 04/01/2015 10:02 AM EST 04/01/2015 10:15 AM EST Narrative Resulting Agency Comment Spec In Lab Richard Faust MD CHEMISTRY ORDERABLES Performing Organization Address [facility] Co de Phone Number [facility] * POCT urine (04/01/2015) Pathologist [facility] POC Urine HCG Negative Negative - Negative [...] disease documented in this encounter Care Teams Double End Tenon Operator Relationship Specialty Start Date End Date Valencia Adhikari APRN [address] [place] [address] PCP - General 04/21/14 07/04/23 documented as of this encounter
--- OUTSIDE RECORDS SUMMARY | 2024-03-15 15:31 | XMS_ITS | Encounter Summary ---
Author Organization [facility] Address [facility] [place] [address] Care Team Providers Care Biomass Power Plant Superintendent Name Role Phone None Primary Care Provider Unavailabl e Encounter Details Date Type Department Care Team (Late st Contact Info) Description 08/04/2012 Telephone Obstetrics [place] [address] Mely Klein MD [facility] DR OBSTETRICS & [place] [address] Social History Tobacco Use Types Packs/Day Years [...] Contact Info) Description 05/23/2024 [place] [address] Lexii Ceja MD [facility] DR OBSTETRICS [place] [address] documented as of this encounter Visit Diagnoses Not on filedocumented in this encounter Care Teams Biomass Power Plant Superintendent Relationship Specialty Start Date End Date None None PCP - General 05/08/12 04/20/14 documented as of this encounter
--- OUTSIDE RECORDS SUMMARY | 2024-03-15 15:31 | XMS_ITS | Encounter Summary ---
Author Organization [facility] [place] [address] Care Team Providers Care Medication Nurse Name Role Phone None Primary Care Provider Unavailabl e Reason for Visit * Reason Onset Date Comments Medication Refill 12/17/2012 Encounter Details Date Type Department Care Team (Late st Contact Info) Description 12/17/2012 Refill [place] [phone] Griffin Wallis III, MD [facility] [place] [address] Social History Tobacco Use Types Packs/Day Years [...] Description 05/23/2024 Hospital [place] [phone] Lexii Ceja MD [facility] [place] [address] documented as of this encounter Visit Diagnoses Not on filedocumented in this encounter Care Teams Medication Nurse Relationship Specialty Start Date End Date None None PCP - General 05/08/12 04/20/14 documented as of this encounter
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
--- OUTSIDE RECORDS SUMMARY | 2024-03-15 15:31 | XMS_ITS | Encounter Summary ---
Author Organization [facility] [place] [address] Care Team Providers Care Harnessmaker Apprentice Name Role Phone None Primary Care Provider Unavailabl e Encounter Details Date Type Department Care Team (Latest Contact Info) Description 07/04/2012 1:49 PM EDT - 07/04/2012 11:59 PM EDT Hospital Encounter Ultrasound at [facility] [place] [phone] History of loss in prior , currently [...] Contact Info) Description 05/23/2024 Hospital Encounter Birthing [facility] [place] [address] Lexii Ceja MD [facility] DR OBSTET[place] [address] documented as of this encounter Procedures Procedure [...] 07/04/2012 03:20 pm) Patient Info ID: ? [id number] ? : ??[birth year] (22 yrs) Name: ? SORCHA E ?Visit Date: 07/04/2012 03:03 pm ? LOUISE- ? FRANK Performed By Performed By: ?Itzel Lezama RDMS Attending: ? Anca LIMA, Phylicia J. Referred By: ? LALITA QUAN MD Service(s) Provided UOBTV - Viability - Cervical Length - Transvaginal - ??[id number] Indications cervical length Evaluation Num Of Fetuses: [...] Final 07/04/2012 03:20 pm) Patient Info ID: [id number] : [birth year] (22 yrs) Name: PREETHI Godoy Visit Date: 07/04/2012 03:03 pm MARIO MARIE Performed By Performed By: Itzel Lezama RDMS Attending: Phylicia March MD. Referred By: LALITA QUAN MD Service(s) Provided UOBTV - Viability - Cervical Length - Transvaginal - [id number] Indications cervical length Evaluation Num Of Fetuses: [...] of documented in this encounter Care Teams Harnessmaker Apprentice Relationship Specialty Start Date End Date None None PCP - General 05/08/12 04/20/14 documented as of this encounter
--- OUTSIDE RECORDS SUMMARY | 2024-03-15 15:31 | XMS_ITS | Encounter Summary ---
Author Organization [facility] Address [facility] [place] [address] Care Team Providers Care Incinerator Operator Name Role Phone Valencia Adhikari APRN Primary Care Provider +1 [phone] Encounter Details Date Type Department Care Team (Latest Contact Info) Description 09/20/2014 - 09/20/2014 11:59 PM EDT Hospital Encounter Radiology Library at [facility] [place] [phone] Kedar Santos MD [facility] [place] [address] Discharge Disposition: Home Social History Tobacco Use [...] Description 05/23/2024 Hospital Encounter Birthing [facility] [place] [address] Lexii Ceja MD [facility] DR OBSTETRICS [place] [address] documented as of this encounter Procedures Procedure Name Priority Date/Time Associated Diagnosis Comments FILM LIBRARY STORAGE ONLY DX ELBOW Routine 09/20/2014 12:00 AM EDT documented in this encounter Results * Film Library- Storage Only DX Elbow (09/20/2014 12:00 AM EDT) Narrative RUDY - 05/17/2017 11:27 AM EST This exam is for storage only and is auto-finalizing. Kedar Santos MD IMG FILM LIBRARY ORD ERABLES [place] documented in this encounter Visit Diagnoses Not on filedocumented in this encounter Care Teams Incinerator Operator Relationship Specialty Start Date End Date Valencia Adhikari APRN [address] [place] [address] PCP - General 04/21/14 07/04/23 documented as of this encounter
--- OUTSIDE RECORDS SUMMARY | 2024-03-15 15:31 | XMS_ITS | Encounter Summary ---
Author Organization [facility] [place] [address] Care Team Providers Care Composing Machine Operator/Tender Name Role Phone None Primary Care Provider Unavailabl e Reason for Visit * Reason Onset Date Comments Post Hospital Discharge 09/16/2012 Encounter Details Date Type Department Care Team (Late st Contact Info) Description 09/16/2012 Telephone Obstetrics [place] [address] Eufemia Farias RN Post Hospital Discharge Social [...] just been d/c'd from [facility] for labor. 31w3d with [facility]C October 20. . LMOM. 2nd call to check on Andree. Left contact information on machine. documented in this encounter Plan of Treatment Upcoming Encounters Date Type Department Care Team (Late st Contact Info) Description 05/23/2024 Hospital Encounter [place] [phone] Lexii Ceja MD [facility] [place]ET[place] [address] documented as of this encounter Visit Diagnoses Not on filedocumented in this encounter Care Teams Composing Machine Operator/Tender Relationship Specialty Start Date End Date None None PCP - General 05/08/12 04/20/14 documented as of this encounter
--- OUTSIDE RECORDS SUMMARY | 2024-03-15 15:31 | XMS_ITS | Encounter Summary ---
Author Organization [facility] Address [facility] [place] [address] Care Team Providers Care Spraying Machine Operator Name Role Phone None Primary Care Provider Unavailabl e Encounter Details Date Type Department Care Team (Latest Contact Info) Description 09/18/2012 10:28 AM EDT - 09/18/2012 10:29 AM EDT Hospital [place] [address] Myles Shipman MD [facility] DR OBSTETRICS [place] [address] Discharge Disposition: Home Social History Tobacco Use [...] Encounter Birthing [facility] [place] [address] Lexii Ceja MD [facility] DR OBSTETRICS [place] [address] documented as of this encounter Visit Diagnoses Not on filedocumented in this encounter Care Teams Spraying Machine Operator Relationship Specialty Start Date End Date None None PCP - General 05/08/12 04/20/14 documented as of this encounter
--- OUTSIDE RECORDS SUMMARY | 2024-03-15 15:31 | XMS_ITS | Encounter Summary ---
Author Organization [facility] [place] [address] Care Team Providers Care Children'S Tutor Nursery Name Role Phone None Primary Care Provider Unavailabl e Encounter Details Date Type Department Care Team (Late st Contact Info) Description 12/20/2012 External Results [place] [address] Griffin Wallis III, MD [facility] [place] [address] Hypothyroidism Social History Tobacco Use [...] Contact Info) Description 05/23/2024 Hospital [place] [address] Lexii Ceja MD [facility] [place] [address] documented as of this encounter Procedures Procedure Name Priority Date/Time Associated Diagnosis Comments TSH Routine 12/12/2012 Hypothyroidism documented in this encounter Results * (ABNORMAL) TSH (12/12/2012) Thyroid Stimulating Hormone 0.15(EXTER NAL/ABN) Blood specimen (specimen) Griffin Walils III, MD CHEMISTRY ORDER AMANDA documented in this encounter Visit Diagnoses Diagnosis Hypothyroidism Unspecified hypothyroidism documented in this encounter Care Teams Children'S Tutor Nursery Relationship Specialty Start Date End Date None None PCP - General 05/08/12 04/20/14 documented as of this encounter
--- OUTSIDE RECORDS SUMMARY | 2024-03-15 15:31 | XMS_ITS | Encounter Summary ---
Author Organization [facility] [place] [address] Care Team Providers Care Elementary School Band Director Name Role Phone None Primary Care Provider Unavailabl e Reason for Visit * Reason Comments Routine Visit Encounter Details Date Type Department Care Team (Late st Contact Info) Description 09/12/2012 11:00 AM EDT Routine Obstetrics [place] [address] Lalita Carmona MD [facility] DR [place] [address] Mely Mccord MD [facility] DR [place] [address] GA: 31w2d Discharge Disposition: Home Social History [...] Info) Description 05/23/2024 Hospital [place] [address] Lexii Ceja MD [facility] DR [place] [address] documented as of this encounter Visit Diagnoses Diagnosis Unspecified high-risk - Primary documented in this encounter Care Teams Elementary [employer] Band Director Relationship Specialty Start Date End Date None None PCP - General 05/08/12 04/20/14 documented as of this encounter
--- OUTSIDE RECORDS SUMMARY | 2024-03-15 15:31 | XMS_ITS | Encounter Summary ---
Author Organization [facility] Address [facility] [place] [address] Care Team Providers Care Gettering Filament Machine Operator Name Role Phone Valencia Adhikari APRN Primary Care Provider [phone] Reason for Visit * Reason Comments Left Knee Pain Encounter Details Date Type Department Care Team (Late st Contact Info) Description 04/21/2014 1:30 PM EST Office [place] [phone] Joshua Padron MD [facility] [place] [address] Alysa Lauren MD [facility] [place] [address] Left knee pain Discharge Disposition: Home Social [...] her leg. She was eventually seen at [facility] where she had x-rays and they [...] Contact Info) Description 05/23/2024 Hospital [place] [address] Lexii Ceja MD [facility] [address] [place] [address] documented as of this encounter Visit Diagnoses Diagnosis Left knee pain Pain in joint, lower leg documented in this encounter Care Teams Gettering Filament Machine Operator Relationship Specialty Start Date End Date Valencia Adhikari APRN [address] [place] [address] PCP - General 04/21/14 07/04/23 documented as of this encounter
--- OUTSIDE RECORDS SUMMARY | 2024-03-15 15:31 | XMS_ITS | Encounter Summary ---
Author Organization [facility] Address [facility] [place] [address] Care Team Providers Care Bun Icer Name Role Phone None Primary Care Provider Unavailabl e Reason for Visit * Reason Comments Laboring Encounter Details Date Type Department Care Team (Latest Contact Info) Description 09/13/2012 12:09 AM EDT - 09/14/2012 12:06 PM EDT [place] [phone] Mely Mccord MD [facility] [place] [address] Hypothyroidism (Primary Dx); Abnormal antibody titer; Depression; [...] V RN - 09/14/2012 11:38 [place] [address] [facility] to contact OB doctor [phone] to contact family doctor to contact bat boy/girl Andree Wallis-Tamara @ 09/14/12 @ 11:37 AM Following your visit to [facility] Triage Reason for Visit: Chief Complaint Patient presents with ??? Laboring Gestation - under 37 weeks Notify your provider if: You are feeling any cramping sensations in your abdomen more than 20 minutes apart [place] Contractions usually are irregular may get less [...] a vaginal exam in your doctor's or bat boy/girl's office you should not bleed as much as a period You have noticed a marked decrease in your baby's movement refer to your kick count instructions in the Your Journey book Your baby should move at least 10 times in 2 hours You have had any direct trauma to your abdomen such as a car accident, fall, or impact Call your doctor or bat boy/girl if you have the following symptoms: Headache [...] dehydratio Keep your regularly scheduled doctor or bat boy/girl appointment Your medications: Current Facility-Administered Medications on [...] by mouth nightly. 30 tablet 2 ??? ebjtozzbkv-lacsflnfqjhuu-hfqhrpbh (FIORICET, ESGIC) per tablet Take 1 tablet [...] 130bpm, moderate variability, +accels to 160, -decels [place]: q2-3 minute contractions vs irritability A/P 21 [...] has been throughout Mely Klein MD PGY-4 #9120 * Valencia Meehan RN - 09/13/2012 10:32 [...] Office of Care Management (OCM) / Clinical Cartridge Assembler (CRC)/ Initial Assessment Discussed patient with Provider [...] with FOB off. Loss of job.Seen by ADMISSION NURSE COORDINATOR 7 days ago during last admission. Referred again for social work support. ADVANCE DIRECTIVES: None HEALTH /PRESCRIPTION COVERAGE: Health Plans, [employer] Under her mother's plan CURRENT HOME/COMMUNITY SERVICES/EQUIPMENT: DME: None Home Health Agency: Connected with [facility]. Referred to [facility] for childbirth education, and free food,diapers, car seat assistance. Other: N/A ADMISSION NURSE COORDINATOR REFERRAL: Notified ADMISSION NURSE COORDINATOR - for Support/Financial/Medication Assistance; See ADMISSION NURSE COORDINATOR notes for further needs. PRIMARY CARE PHYSICIAN: None None None POTENTIAL DISCHARGE NEEDS: Education. ? [facility] home improvement advisor PATIENT/FAMILY EDUCATION NEEDS: labor, preparation for childbirth [...] has been throughout Mely Klein MD PGY-4 #4406 MFM attending note I saw and evaluated [...] notified and RN redirected to Programer at [phone]. Pt accepted into eDH at [phone] and [...] Provider (if early referral or co-managed by [facility]): [employer] [facility] [employer] - [facility] Chief Complaint: Andree Hummel was admitted [...] NECK DISSECTION performed by JUAN ESPARZA at [facility] MAIN OR ??? Somatosensory test, any/all per. nerves, trunk or head 03/22/2011 FACIAL NERVE MONITORING, SETUP performed by JUAN ESPARZA at [facility] MAIN OR ??? [place] tooth extraction ??? Upper gastrointestinal endoscopy for [...] by mouth nightly. 30 tablet 2 ??? ebhdbztmet-wnuhfcsadghsf-wzpwzxcf (FIORICET, ESGIC) per tablet Take 1 tablet [...] results found for this basename: GLUCDOSE, GLUCBASELINE, TEXUEYT9TM, LABGLUC2, LABGLUC3, Lab Results Component Value Date [...] Mccord MD Discharge Summary Antepartum Care Provider: [facility] Referring Provider if applicable: n/a Discharge Diagnoses (Hospital Problems) and Secondary Diagnoses (Chronic Problems): Active Hospital Problems Diagnoses ??? Threatened labor, antepartum ??? , supervision of, high-risk Team [facility] transfer of care from [facility] Delivery plan GBS date & Result [...] care. ??? , supervision of, high-risk Team [facility] transfer of care from [facility] Delivery plan GBS date & Result [...] Andree WallisYasir is a 22 y.o. year [id number] female, GBS neg, with an ZAYDA of [...] 09/05/2012, Until Discontinued, Disp-30 tablet, R-2, Normal qrsnokpazu-vwkhshrabiuzf-dufsziqr (FIORICET, ESGIC) per tablet Take 1 tablet [...] NECK DISSECTION performed by JUAN ESPARZA at [facility] MAIN OR ??? Somatosensory test, any/all per. nerves, trunk or head 03/22/2011 FACIAL NERVE MONITORING, SETUP performed by JUAN ESPARZA at [facility] MAIN OR ??? [place] tooth extraction ??? Upper gastrointestinal endoscopy for [...] sexual intercourse, long shopping trips. General Instructions [address] to contact OB doctor [phone] to contact family doctor to contact bat boy/girl Andree Wallis-Tamara @ 09/14/12 @ 11:37 AM Following your visit to [facility] Triage Reason for Visit: Chief Complaint Patient presents with ??? Laboring Gestation - under 37 weeks Notify your provider if: You are feeling any cramping sensations in your abdomen more than 20 minutes apart [place] Contractions usually are irregular may get less [...] a vaginal exam in your doctor's or bat boy/girl's office you should not bleed as much as a period You have noticed a marked decrease in your baby's movement refer to your kick count instructions in the Your Journey book Your baby should move at least 10 times in 2 hours You have had any direct trauma to your abdomen such as a car accident, fall, or impact Call your doctor or bat boy/girl if you have the following symptoms: Headache [...] dehydratio Keep your regularly scheduled doctor or bat boy/girl appointment Your medications: Current Facility-Administered Medications on [...] by mouth nightly. 30 tablet 2 ??? fzsroiikyx-plmfoxwkrfldd-zznokepo (FIORICET, ESGIC) per tablet Take 1 tablet [...] Yaneth Griffith MD Psychiatry and Behavioral Health [phone] [facility] Joint Appt Questionnaire Five D Res-Psych LEB 5D [phone] [facility] Referrals:none MELY KLEIN MD 09/15/2012 Cc: * Miscellaneous - Provider, Scanning - 09/13/2012 3:59 PM EDT documented in this encounter Plan of Treatment Upcoming Encounters Date Type Department Care Team (Late st Contact Info) Description 05/23/2024 [place] [address] Lexii Ceja MD [facility] [address] [place] [address] documented as of this encounter Procedures Procedure [...] EDT) Oral Glucose Dose 50 gm CERNER MILLENNIUM Blood specimen (specimen) 09/13/2012 4:15 PM EDT 09/13/2012 4:23 PM EDT Mely Mccord MD CHEMISTRY ORDERABLES Performing Organization Address City/[facility] Co de Phone Number HANNAH POTTERIUM * Gluc 1 Hr (09/13/2012 4:15 PM EDT) Glucose 1 hour 83 mg/dL CERNE R MILLENNIUM Blood specimen (specimen) 09/13/2012 4:15 PM EDT 09/13/2012 4:23 PM EDT Narrative Resulting Agency Comment Spec In Lab Mely Mccord MD CHEMISTRY ORDERABLES HANNA[facility] * (ABNORMAL) Differential, Automated (09/13/2012 5:00 AM [...] MD HEMATOLOGY ORDERABLE S Performing Organization Address City/[facility]/ZIP Co de Phone Number HANNAH SERRANO * Antibody screen (09/13/2012 5:00 AM EDT) Ab Screen Interp Negative HANNAH POTTERIUM Expires at [id number] on: [id number] HANNAH POTTERIUM Blood specimen (specimen) 09/13/2012 5:00 AM EDT 09/13/2012 6:09 AM EDT Narrative Resulting Agency Comment Spec In Lab Mely Mccord MD BLOOD BANK LAB ORDER AMANDA Performing Organization Address [facility] Co de Phone Number HANNAH SERRANO * ABO/Rh Typing (09/13/2012 5:00 AM EDT) ABORH Type A Pos HANNAH SERRANO Blood specimen (specimen) 09/13/2012 5:00 AM EDT 09/13/2012 6:09 AM EDT Narrative Resulting Agency Comment Spec In Lab Mely Mccord MD BLOOD BANK LAB ORDER AMANDA Performing Organization Address [facility] Co de Phone Number HANNAH SERRANO * (ABNORMAL) Rapid Qual Drug Screen, Urine ([employer]) (09/13/2012 5:00 AM EDT) TIFFANIE Marijuana Metabolites Screen Presumptive Pos(A) None Detected HANNAH SERRANO Comment: The marijuana metabolites screen detects the THC Metabolite (97-jlr-0-carboxy- 9-THC) at concentrations >50 ng/mL. Qualitative Drug screens are reported as None Detected or Presumptive Positive as the results are not routinely confirmed by highly-specific methods. As with any screen occasional false positive results from cross-reacting substances can occur. Not for Medico-Legal Purposes. Phencyclidine Screen, Urine None Detected None Detected [facility] POTTER[facility] Comment: The phencyclidine screen detects phencyclidine at [...] Mccord MD URINE ORDERABLES Performing Organization Address [facility] Co de Phone Number CERNER MILLENNIUM * (ABNORMAL) Rubella Antibody, IgG (09/13/2012 5:00 AM EDT) Pathologist [facility] Rubella Antibody IgG Negative( A) Positive CERNER MILLENNIUM Comment: Please note: ??A positive result for this assay indicates that antibody levels are >or= 10.0 IU/mL and is considered to be an indicator of positive immune status. Blood specimen (specimen) 09/13/2012 5:00 AM EDT 09/13/2012 6:11 AM EDT Narrative Resulting Agency Comment Spec In Lab Mely Mccord MD CHEMISTRY ORDERABLES Performing Organization Address [email or web address]] de Phone Number CERNER MILLENNIUM * (ABNORMAL) CBC (with Diff) (09/13/2012 5:00 AM EDT) Pathologist [facility] White Blood Cell 10.1(H) 4.0 - 10.0 [...] Standard Deviation 49.0(H) 35.0 - 46.0 fL [facility] RDW coefficient of variation 13.6 10.9 - 14.4 % [facility] Mean Platelet Volume 13.9(H) 9.0 - 12.0 fL [facility] Blood specimen (specimen) 09/13/2012 5:00 AM EDT 09/13/2012 6:11 AM EDT Narrative Resulting Agency Comment Spec In Lab Mely Mccord MD HEMATOLOGY ORDERABLE S [facility] documented in this encounter Visit Diagnoses [...] AM EDT 4 mg vitamin 27 & chigoea-swzv-LG 60 mg iron-1 mg tablet Tab 1 [...] Carmen Cisneros RN)0615 (Due) vitamin 27 & nlylfvi-dqcz-ZD 60 mg iron-1 mg tablet Tab 1 [...] RN) documented in this encounter Care Teams Bun Icer Relationship Specialty Start Date End Date None None PCP - General 05/08/12 04/20/14 documented as of this encounter
--- OUTSIDE RECORDS SUMMARY | 2024-03-15 15:31 | XMS_ITS | Encounter Summary ---
Author Organization [facility] [place] [address] Care Team Providers Care Real Estate Site Analyst Name Role Phone None Primary Care Provider Unavailabl e Encounter Details Date Type Department Care Team (Late st Contact Info) Description 12/12/2012 Telephone [place] [phone] Omayra Meredith LPN Social History Tobacco Use [...] 250 mcg daily. Called lab at [facility] for results. Received and forward to Dr avila. * Telephone Encounter - Omayra Meredith LPN - 12/12/2012 11:35 AM EDT Patient asking for order to go to [facility] to check thyroid has not been checked since of baby and was not able to go at beginning of November as baby was sick. Order faxed to [facility] documented in this encounter Plan of Treatment Upcoming Encounters Date Type Department Care Team (Late st Contact Info) Description 05/23/2024 [place] [address] Lexii Ceja MD [facility] OBSTETRICS [place] [address] documented as of this encounter Visit Diagnoses Not on filedocumented in this encounter Care Teams Real Estate Site Analyst Relationship Specialty Start Date End Date None None PCP - General 05/08/12 04/20/14 documented as of this encounter
--- OUTSIDE RECORDS SUMMARY | 2024-03-15 15:31 | XMS_ITS | Encounter Summary ---
Author Organization [facility] Address [facility] [place] [address] Care Team Providers Care Enrollment Advisor Name Role Phone None Primary Care Provider Unavailabl e Reason for Visit * Reason Comments Vaginal Pain Encounter Details Date Type Department Care Team (Latest Contact Info) Description 08/04/2012 5:07 AM EDT - 08/04/2012 11:51 AM EDT Hospital Encounter [place] [address] Maite Pearce MD [facility] OBSTETRICS [place] [address] Discharge Disposition: Home Social History Tobacco Use [...] Dumas RN - 08/04/2012 11:45 AM EDT [facility] [place] [address] [facility] to contact OB doctor [phone] to contact family doctor to contact project manager interior design Preethi Hummel [email or web address] 11:42 AM [facility] to contact OB doctor [facility] to contact [place] [address] to contact family doctor Following your visit to [facility] Triage [facility] to contact OB doctor [facility] to contact [place] [address] to contact family doctor [facility] Provider: GESTATION - Less Than 37 Weeks Call your provider if: You are feeling any cramping sensations in your abdomen less than 20 minutes apart [place] Contractions usually are irregular may get less [...] a vaginal exam in your doctor's or project manager interior design's office you should not bleed as much [...] dehydration Keep your regularly scheduled doctor or project manager interior design appointment NEW MEDICATIONS: SPECIAL INSTRUCTIONS/FOLLOW-UP CARE: documented [...] Contact Info) Description 05/23/2024 [place] [address] Lexii Ceja MD [facility] OBSTETRICS [place] [address] documented as of this encounter Procedures Procedure [...] Final 08/05/2012 02:16 pm) Patient Info ID: ?[id number] ?: ??[birth year] (22 yrs) Name: ?PREETHI Godoy ? Visit Date: 08/04/2012 10:21 am ?LOUISE- ?FRANK Performed By Performed By: ?Alicia Redding RDMS Attending: ? Selina LIMA, Maite Wilson Referred By: ? KATELYNN BALTAZAR MD Service(s) Provided UOBFOL - Efw - Growth - Reevaluation - [place] ?[id number] - [id number] UOBTV - Viability - Cervical Length - Transvaginal - ??[id number] Indications 22yo with history of delivery, now [...] Final 08/05/2012 02:16 pm) Patient Info ID: [id number] : [birth year] (22 yrs) Name: PREETHI Godoy Visit Date: 08/04/2012 10:21 am MARIO FRANK Performed By Performed By: Alicia Redding [facility] Attending: Maite Pearce MD Referred By: KATELYNN BALTAZAR MD Service(s) Provided UOBFOL - Efw - Growth - Reevaluation - [place] [id number] - [id number] UOBTV - Viability - Cervical Length - Transvaginal - [id number] Indications 22yo with history of delivery, now [...] MAITE PEARCE ? PREETHI Godoy ? MR#: [id number] ?LOC: ??[facility] ? /Sex: ?? 2 (22 [...] * (ABNORMAL) Rapid Qual Drug Screen, Urine ([facility]) (08/04/2012 9:03 AM EDT) TIFFANIE Marijuana Metabolites Screen None Detected None Detected CERNER MILLENNIUM Comment: Please note that as of 04/12/2012 the testing device changed to the PROFILE-V MEDTOXScan Drugs of Abuse Test System. The marijuana metabolites screen detects the THC Metabolite (25-vod-8-carboxy- 9-THC) ??at concentrations >50 ng/mL. Be aware [...] from similar or dissimilar cross-reacting drugs. TFIFANIE Cocaine Metabolites Screen None Detected None Detected [...] the testing device changed to the PROFILE-V [email or web address] Drugs of Abuse Test System. The buprenorphine [...] In Lab Maite Pearce MD URINE ORDERABLES CERNER MILLENNIUM * (ABNORMAL) Urinalysis without microscopic [...] Urine Dipstick Hazy(A) Clear CERNER MILLENNIUM Specific Antler Urine Automated 1.013 1.002 - 1.030 CERNER MILLENNIUM Color, Urine Dipstick Yellow Yellow CERNER MILLENNIUM Urine specimen (specimen) 08/04/2012 9:03 AM EDT 08/04/2012 9:16 AM EDT Narrative Resulting Agency Comment Spec In Lab Maite Pearce MD URINE ORDERABLES Performing Organization Address [facility] de Phone Number HANNAH SERRANO * Fibronectin (08/04/2012 7:10 AM EDT) Fibronect [...] MD BODY FLUIDS AND STOO LS ORDERABLES Performing Organization Address [facility] Co de Phone Number HANNAH SERRANO documented in this encounter Visit Diagnoses Not on filedocumented in this encounter Care Teams Enrollment Advisor Relationship Specialty Start Date End Date None None PCP - General 05/08/12 04/20/14 documented as of this encounter
--- OUTSIDE RECORDS SUMMARY | 2024-03-15 15:31 | XMS_ITS | Encounter Summary ---
Author Organization [facility] [address] Care Team Providers Care Visual Effects Artist Name Role Phone None Primary Care Provider Unavailabl e Encounter Details Date Type Department Care Team (Late st Contact Info) Description 09/30/2012 Orders Only [place] [address] Griffin Wallis III, MD [facility] DR ENDOCRINOLOGY [place] [address] Hypothyroidism (Primary Dx) Social History [...] Info) Description 05/23/2024 Hospital [place] [address] Lexii Ceja MD [facility] OBSTETRICS [place] [address] documented as of this encounter Visit Diagnoses Diagnosis Hypothyroidism- Primary Unspecified hypothyroidism documented in this encounter Care Teams Visual Effects Artist Relationship Specialty Start Date End Date None None PCP - General 05/08/12 04/20/14 documented as of this encounter
--- OUTSIDE RECORDS SUMMARY | 2024-03-15 15:31 | XMS_ITS | Encounter Summary ---
Author Organization [facility] Address [facility] [place] [address] Care Team Providers Care Cda Teacher Name Role Phone None Primary Care Provider Unavailabl e Reason for Referral * Psychiatric (Routine) - Closed Specialty Diagnoses / Procedures Referred By Lamont t Referred To Contact Psychiatry Diagnoses Unspecified high-risk Lalita Carmona MD [facility] [place] [address] Yaneth Griffith MD [facility] [place] [address] Referral ID Status Reason Start Date Expiration Date V isits Requested Visits Authorized [id number] Closed Consult, Test & Treat 08/08/2012 02/04/2013 1 1 Reason for Visit * Reason Comments Routine Visit Encounter Details Date Type Department Care Team (Late st Contact Info) Description 08/08/2012 10:00 AM EDT Routine Obstetrics [place] [address] Lalita Carmona MD [facility] OBSTET[place]ICS [place] [address] GA: [id number] Discharge Disposition: Home Social History [...] Contact Info) Description 05/23/2024 [place] [address] Lexii Ceja MD [facility] DR OBSTETRICS [place] [address] Scheduled Referrals Name Type Priority Associated Diagnoses [...] MD CHEMISTRY ORDERABL ES Performing Organization Address [facility] Phone Number CERSWETA HARKINSENNIUM * Hemoglobin and Hematocrit, blood (08/08/2012 9:29 AM EDT) Hemoglobin 12.2 11.2 - 15.7 gm/dL CERNER MILLENNIUM Hematocrit 35.4 34.0 - 45.0 % CERNER MILLENNIUM Blood specimen (specimen) 08/08/2012 9:29 AM EDT 08/08/2012 9:33 AM EDT Narrative Resulting Agency Comment Spec In Lab Lalita Carmona MD HEMATOLOGY ORDERAB LES Performing Organization Address [facility] de Phone Number CERSWETA HARKINSENNIUM * Glucose 1 Hour Post Prandial (08/08/2012 9:29 AM EDT) Glucose Post Prandial, 1 Hour 128 mg/dL CERNER MILLENNIUM Blood specimen (specimen) 08/08/2012 9:29 AM EDT 08/08/2012 9:33 AM EDT Narrative Resulting Agency Comment Spec In Lab Lalita Carmona MD CHEMISTRY ORDERABL ES Performing Organization Address [facility] de Phone Number CERSWETA POTTERIUM documented in this encounter Visit Diagnoses Diagnosis Unspecified high-risk - Primary documented in this encounter Care Teams Cda Teacher Relationship Specialty Start Date End Date None None PCP - General 05/08/12 04/20/14 documented as of this encounter
--- OUTSIDE RECORDS SUMMARY | 2024-03-15 15:31 | XMS_ITS | Encounter Summary ---
Author Organization [facility] Address [facility] [place] [address] Care Team Providers Care Flat Examiner Name Role Phone None Primary Care Provider Unavailabl e Encounter Details Date Type Department Care Team (Late st Contact Info) Description 07/27/2012 Telephone Obstetrics [place] [address] Al Bhatti MD [facility] DR OBSTETRICS & [place] [address] Social History Tobacco Use Types Packs/Day Years [...] Info) Description 05/23/2024 Hospital Encounter [place] [address] Lexii Ceja MD [facility] DR OBSTETRICS [place] [address] documented as of this encounter Visit Diagnoses Not on filedocumented in this encounter Care Teams Flat Examiner Relationship Specialty Start Date End Date None None PCP - General 05/08/12 04/20/14 documented as of this encounter
--- OUTSIDE RECORDS SUMMARY | 2024-03-15 15:31 | XMS_ITS | Encounter Summary ---
Author Organization [facility] [address] Care Team Providers Care Lens Generator Name Role Phone None Primary Care Provider Unavailabl e Reason for Visit * Reason Onset Date Comments Triage 04/17/2014 Encounter Details Date Type Department Care Team (Late st Contact Info) Description 04/17/2014 Telephone Orthopaedics at [facility] [place] [phone] Omayra Fulton, trial lawyer Social History Tobacco Use Types Packs/Day Years [...] Received 6 pages of office notes from [facility], for the patients upcoming appointment. List what was rec'd. ED NOTES XR RESULTS * Telephone Encounter - Omayra Schroeder RN - 04/17/2014 1:58 PM EST Appropriate for AP or Gen Ortho. * Telephone Encounter - Taty Browne - 04/17/2014 10:36 AM EST Ask the patient to verify the following: Full Name: Andree UnderwoodWilliams : 1990 Phone number: [phone] (home) Mailing address: [address] [place] [phone] Age: 23 y.o. Mom states patient was trying to move out of the way of a car and slipped and possibly hit her kneeoff a guardrail. She was seen in [facility] ED and was told she probably has a meniscus tear and needs tofollow up with Ortho. Mom states she works here. Please call her as her daughter is not available. Her name is Carmina and her number is [phone]. Appointment date: TBD Appointment is with: TBD [...] X-rays: Yes - When? Where? Notes: 04/15/14 [place], [place] PH: [phone] FAX: [phone] IMG PUSH SEEN IN THEIR ED THIS [...] copy to your next appointment. Advance Directive captain airline pilot: New patient with knee pain under age of 55. MyD Do you have a [facility] account? No - Patient Declined - MOM BOOKED documented in this encounter Plan of Treatment Upcoming Encounters Date Type Department Care Team (Late st Contact Info) Description 05/23/2024 Hospital En[address] [facility] [place] [address] Lexii Ceja MD [facility] [address] OBSTETRICS [place] [address] documented as of this encounter Visit Diagnoses Not on filedocumented in this encounter Care Teams Lens Generator Relationship Specialty Start Date End Date None None PCP - General 05/08/12 04/20/14 documented as of this encounter
--- OUTSIDE RECORDS SUMMARY | 2024-03-15 15:31 | XMS_ITS | Encounter Summary ---
Author Organization [facility] [place] [address] Care Team Providers Care Disc Jockey Name Role Phone None Primary Care Provider Unavailabl e Encounter Details Date Type Department Care Team (Late st Contact Info) Description 07/04/2013 [place] [address] Omayra Meredith LPN Social History Tobacco Use [...] Contact Info) Description 05/23/2024 Hospital [place] [phone] Lexii Ceja MD [facility] OBSTETRICS [place] [address] documented as of this encounter Visit Diagnoses Not on filedocumented in this encounter Care Teams Disc Jockey Relationship Specialty Start Date End Date None None PCP - General 05/08/12 04/20/14 documented as of this encounter
--- OUTSIDE RECORDS SUMMARY | 2024-03-15 15:31 | XMS_ITS | Encounter Summary ---
Author Organization [facility] Address [facility] [place] [address] Care Team Providers Care Medical Intern Name Role Phone None Primary Care Provider Unavailabl e Reason for Referral * Psychiatric (Routine) - Closed Specialty Diagnoses / Procedures Referred By Lamont t Referred To Contact Psychiatry Diagnoses Unspecified high-risk Lalita Carmona MD [facility] [place] [address] Yaneth Griffith MD [facility] [place] [address] Referral ID Status Reason Start Date Expiration Date V isits Requested Visits Authorized [id number] Closed Consult, Test & Treat 07/19/2012 01/15/2013 1 1 Reason for Visit * Reason Comments Routine Visit Encounter Details Date Type Department Care Team (Late st Contact Info) Description 07/19/2012 11:15 AM EDT Routine Obstetrics [place] [address] Lalita Carmona MD [facility] DR OBST[place] [address] GA: 23w3d Discharge Disposition: Home Social History [...] (if applicable) along with the Guide to [place] was given to the patient. The materials were discussed and the patient was encouraged to read the information and direct questions to the provider. documented in this encounter Plan of Treatment Upcoming Encounters Date Type Department Care Team (Late st Contact Info) Description 05/23/2024 Hospital [place] [address] Lexii Ceja MD [facility] DR OBSTETRICS AND [place] [address] Scheduled Referrals Name Type Priority Associated Diagnoses [...] MD CHEMISTRY ORDERABL ES Performing Organization Address [facility] Phone Number [facility] ABBEYI[facility] * Hemoglobin and Hematocrit, blood (08/08/2012 9:29 AM EDT) Hemoglobin 12.2 11.2 - 15.7 gm/dL CERNER MILLENNIUM Hematocrit 35.4 34.0 - 45.0 % CERNER MILLENNIUM Blood specimen (specimen) 08/08/2012 9:29 AM EDT 08/08/2012 9:33 AM EDT Narrative Resulting Agency Comment Spec In Lab Lalita Carmona MD HEMATOLOGY ORDERAB LES Performing Organization Address [facility] Phone Number HANNAH POTTERIUM * Glucose 1 Hour Post Prandial (08/08/2012 9:29 AM EDT) Glucose Post Prandial, 1 Hour 128 mg/dL CERNER MILLENNIUM Blood specimen (specimen) 08/08/2012 9:29 AM EDT 08/08/2012 9:33 AM EDT Narrative Resulting Agency Comment Spec In Lab Lalita Carmona MD CHEMISTRY ORDERABL ES Performing Organization Address [facility] Phone Number [facility] documented in this encounter Visit Diagnoses Diagnosis Unspecified high-risk - Primary documented in this encounter Care Teams Medical Intern Relationship Specialty Start Date End Date None None PCP - General 05/08/12 04/20/14 documented as of this encounter
--- OUTSIDE RECORDS SUMMARY | 2024-03-15 15:31 | XMS_ITS | Encounter Summary ---
Author Organization [facility] Address [facility] [place] [address] Care Team Providers Care Benzene Operator Name Role Phone None Primary Care Provider Unavailabl e Reason for Visit * Reason Comments Abdominal Cramping Encounter Details Date Type Department Care Team (Latest Contact Info) Description 07/10/2012 10:58 PM EDT - 07/11/2012 12:38 AM EDT Hospital Encounter [place]thing [place] [address] Maite Marks MD [facility] OBSTETRICS [place] [address] Discharge Disposition: Home Social History Tobacco Use [...] Perkins RN - 07/11/2012 12:35 [place] [address] [facility] Alexander Campusruthann [facility] to contact OB doctor [phone] to contact family doctor to contact treating engineer Andree Hummel @[email or web address]@ 12:35 AM Following your visit to [facility] Triage Reason for Visit: Chief [...] your abdomen more than 20 minutes apart [place] Contractions usually are irregular may get less [...] a vaginal exam in your doctor's or treating engineer's office you should not bleed as [...] fall, or impact Call your doctor or treating engineer if you have the following symptoms: Headache [...] dehydratio Keep your regularly scheduled doctor or treating engineer appointment Your medications: No current facility-administered medications on file prior to encounter. Current Outpatient Prescriptions on File Prior to Encounter Medication Sig Dispense Refill ??? [id number] (FIORICET, ESGIC) per tablet Take 1 tablet [...] TRIAGE NOTE Andree Hummel 22 y.o. 22w1d [id number] CC: I fell on my left side [...] or LOF. Okay to discharge per MD iDanne. Discharge instructions given and pt leaving via wheel chair with father. documented in this encounter Plan of Treatment Upcoming Encounters Date Type Department Care Team (Late st Contact Info) Description 05/23/2024 Hospital Encounter Birthing [facility] [place] [address] Lexii Ceja MD [facility] [address] OBSTETRICS [place] [address] documented as of this encounter Visit Diagnoses Not on filedocumented in this encounter Active and Recently Administered Medications Care Teams Benzene Operator Relationship Specialty Start Date End Date None None PCP - General 05/08/12 04/20/14 documented as of this encounter
--- OUTSIDE RECORDS SUMMARY | 2024-03-15 15:31 | XMS_ITS | Encounter Summary ---
Author Organization [facility] Address [facility] [place] [address] Care Team Providers Care Centrifugal Supervisor Name Role Phone None Primary Care Provider Unavailabl e Encounter Details Date Type Department Care Team (Late st Contact Info) Description 08/03/2012 Telephone Obstetrics [place] [address] [facility] DR OBSTETRICS [place] [address] Social History Tobacco Use Types Packs/Day Years [...] she can or she may go to [facility] for initial evaluation because she lives so far away, but she will be seen today. documented in this encounter Plan of Treatment Upcoming Encounters Date Type Department Care Team (Late st Contact Info) Description 05/23/2024 [place] [phone] Lexii Ceja MD [facility] DR [place]ST[place] [address] documented as of this encounter Visit Diagnoses Not on filedocumented in this encounter Care Teams Centrifugal Supervisor Relationship Specialty Start Date End Date None None PCP - General 05/08/12 04/20/14 documented as of this encounter
--- OUTSIDE RECORDS SUMMARY | 2024-03-15 15:31 | XMS_ITS | Encounter Summary ---
Author Organization [facility] [place] [address] Care Team Providers Care Pipeline Gang Supervisor Name Role Phone None Primary Care Provider Unavailabl e Reason for Visit * Reason Onset Date Comments Advice Only 09/30/2012 Encounter Details Date Type Department Care Team (Late Contact Info) Description 09/30/2012 Telephone Endocrinology at [facility] [place] [phone] Omayra Meredith LPN Advice Only Social History [...] weeks ago and is still here at [facility] (born 8 week early) Order to be placed here. If baby discharged within two weeks patient will call to have order faxed to local lab. documented in this encounter Plan of Treatment Upcoming Encounters Date Type Department Care Team (Late st Contact Info) Description 05/23/2024 Hospital Encounter [facility]thing [place] [phone] Lexii Ceja MD [facility] DR OBSTETRICS [place] [address] documented as of this encounter Visit Diagnoses Not on filedocumented in this encounter Care Teams Pipeline Gang Supervisor Relationship Specialty Start Date End Date None None PCP - General 05/08/12 04/20/14 documented as of this encounter
--- OUTSIDE RECORDS SUMMARY | 2024-03-15 15:31 | XMS_ITS | Encounter Summary ---
Author Organization [facility] Address [facility] [place] [address] Care Team Providers Care Immigration Paralegal Name Role Phone Valencia Adhikari APRN Primary Care Provider [phone] Reason for Visit * Reason Comments Left Knee Pain Encounter Details Date Type Department Care Team (Late st Contact Info) Description 05/05/2014 2:30 PM EST Office [place] [phone] Joshua Padron MD [facility] [place] [address] Left knee pain Discharge Disposition: Home Social [...] and tibial distributions, ASSESSMENT AND PLAN: Ms. Hmumel is a 23-year-old female with likely sprain of her lateral collateral ligament. 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 We will see her back only if needed. documented in this encounter Plan of Treatment Upcoming Encounters Date Type Department Care Team (Late st Contact Info) Description 05/23/2024 [place] [phone] Lexii Ceja MD [facility] [place]ST[place] [address] documented as of this encounter Visit Diagnoses Diagnosis Left knee pain Pain in joint, lower leg documented in this encounter Care Teams Immigration Paralegal Relationship Specialty Start Date End Date Valencia Adhikari APRN [address] [place] [address] PCP - General 04/21/14 07/04/23 documented as of this encounter
--- OUTSIDE RECORDS SUMMARY | 2024-03-15 15:31 | XMS_ITS | Encounter Summary ---
Author Organization [facility] [place] [address] Care Team Providers Care Workshop Manager Name Role Phone None Primary Care Provider Unavailabl e Encounter Details Date Type Department Care Team (Latest Contact Info) Description 07/19/2012 10:35 AM EDT - 07/19/2012 11:59 PM EDT Hospital Encounter Ultrasound at [facility] [place] [address] Migraine, unspecified, without mention of intractable migraine [...] Info) Description 05/23/2024 Hospital Encounter Birthing [facility] [place] [address] Lexii Ceja MD [facility] DR OBSTETRICS [place] [address] documented as of this encounter Procedures Procedure [...] Final 07/19/2012 11:21 am) Patient Info ID: ?[id number] ?: ??[birth year] (22 yrs) Name: ?SORCHA E ? Visit Date: 07/19/2012 11:01 am ?LOUISE- ?FRANK Performed By Performed By: ?Ana Laura Urban Attending: ? Kandis LIMA, Latoya Figueroa Referred By: ? E MELANY BAY MD Service(s) Provided [facility]OB[facility] - Viability - Cervical Length - Transvaginal - ??[id number] Indications Viability, transvaginal Evaluation Num Of Fetuses: [...] Final 07/19/2012 11:21 am) Patient Info ID: [id number] : [birth year] (22 yrs) Name: PREETHI Godoy Visit Date: 07/19/2012 11:01 am MARIO MARIE Performed By Performed By: Ana Laura Urban Attending: Latoya Marquis MD Referred By: Walt BAY MD Service(s) Provided [facility]OBTV - Viability - Cervical Length - Transvaginal - [id number] [phone] Indications Viability, transvaginal Evaluation Num Of Fetuses: [...] high-risk documented in this encounter Care Teams Workshop Manager Relationship Specialty Start Date End Date None None PCP - General 05/08/12 04/20/14 documented as of this encounter
--- OUTSIDE RECORDS SUMMARY | 2024-03-15 15:31 | XMS_ITS | Encounter Summary ---
Author Organization Formerly [facility] [place] [address] Care Team Providers Care Corrections Identification Technician Name Role Phone None Primary Care Provider Unavailabl e Encounter Details Date Type Department Care Team (Latest Contact Info) Description 09/03/2012 7:12 PM EDT - 09/05/2012 10:55 AM EDT Hospital Encounter Birthing [facility] [address] Lalita Quan MD [facility] [address] OBST[place] [address] Mely Mccord MD [facility] [address] OBSTETRICS [place] [address] Hypothyroidism (Primary Dx); Threatened labor, antepartum Discharge [...] Luke N - 09/05/2012 10:22 AM EDT [facility] to contact [facility] doctor [facility] [place] [address] to contact family doctor Following your visit to [facility] Triage ??N?DL?TL?? Reason for Visit: Provider: GESTATION [...] a vaginal exam in your doctor's or mussel opener's office you should not bleed as much [...] dehydration Keep your regularly scheduled doctor or mussel opener appointment NEW MEDICATIONS: SPECIAL INSTRUCTIONS/FOLLOW-UP CARE: documented [...] living with her mother (an RN at [facility]), in [place], [place]. Patient requested information about childbirth classes. Provided flyer for [facility] and offered referral for scholarship. Suggested they [...] friends who can visit, andhas a home care manager from [facility]. A: Patient is a 22-year-old single woman, here for pre-term labor in setting of 30 week . Patient has a hx of prior loss. Patient is known to from OB Clinic (see Outpatient Care Management note of 06/12/12). Patient is being discharged to home today. Patient currently living with her mother (an RN at [facility]) in [place], [place]. Patient has support from her mother, friends, [facility] Patient with considerable stressors and hx of depression. Has declined medication during this . Patient with hx of substance abuse. (TIFFANIE presumptive + for THC on admission.) P: SW referring patient, at her request, to [facility] for scholarship for childbirth class. 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 Managed by endocrine. Synthroid dose recently decreased from 300mcg QD to 200mcg QD as TSH was 0.03. TSH on 09/02 was 34.90. Discussed with patient's unemployment inspector - increased dose to 250 mcg daily. [...] high-risk Team MFM transfer of care from [facility] Delivery plan GBS date & Result [...] UA Latest Range: Clear Hazy (A) Spec [place] UA Latest Range: 1.002-1.030 1.006 pH UA [...] naive, will start mag for tocolysis vs MACHINIST WOOD PRN progressive labor. Steroid status & Plan: Betamethasone #1 given Diet: clear liquids Ultrasound with cervical length today Consent obtained for CS, possible classical Consultations: none at present Additional Issues: 1. Reported 20 week prior loss 2. 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 Managed by endocrine. 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 Managed by endocrine. Synthroid dose recently decreased [...] NECK DISSECTION performed by JUAN ESPARZA at [facility] MAIN OR ??? Somatosensory test, any/all per. nerves, trunk or head 03/22/2011 FACIAL NERVE MONITORING, SETUP performed by JUAN ESPARZA at [facility] MAIN OR ??? [place] tooth extraction ??? Upper gastrointestinal endoscopy for IBS, celiac excluded ??? Colonoscopy found polyps ??? Tonsillectomy 2010 Prior to Admission Medications Prescriptions prior to admission Medication Sig Dispense Refill ??? qndlnxefen-wzlcthqxddquh-mjpcnjux (FIORICET, ESGIC) per tablet Take 1 tablet [...] naive, will start mag for tocolysis vs MACHINIST WOOD PRN progressive labor. ?? 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 Managed by endocrine. Synthroid dose recently decreased [...] antepartum ??? , supervision of, high-risk Team [facility] transfer of care from [facility] Delivery plan GBS date & Result [...] care. ??? 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 Managed by endocrine. Synthroid dose recently decreased [...] tablet, R-2, Normal Continued medications, unchanged Details mdxyslhbja-zeingsqjdoubt-xnyxwhyb (FIORICET, ESGIC) per tablet Take 1 tablet [...] NECK DISSECTION performed by JUAN ESPARZA at [facility] MAIN OR ??? Somatosensory test, any/all per. nerves, trunk or head 03/22/2011 FACIAL NERVE MONITORING, SETUP performed by JUAN ESPARZA at [facility] MAIN OR ??? [place] tooth extraction ??? Upper gastrointestinal endoscopy for [...] GCT - due to macrosomia General Instructions [facility] Cisse to contact OB doctor [facility] Mima to contact mussel opener CRYSTAL Montes to contact family doctor [facility] Triage ??N?DL?TL?? Reason for Visit: Provider: GESTATION - Less Than 37 Weeks Call your provider if: You are feeling any cramping sensations in your abdomen less than 20 minutes apart 1. Nixon-Vazquez Contractions usually are irregular may get less [...] a vaginal exam in your doctor's or mussel opener's office you should not bleed as much [...] 12. Keep your regularly scheduled doctor or mussel opener appointment NEW MEDICATIONS: SPECIAL INSTRUCTIONS/FOLLOW-UP CARE: Future Appointments and Orders Future Appointments: Provider: Department: Dept Phone: Center: 09/12/2012 11:00 AM Lalita Quan MD Obstetrics and Gynecology [phone] [facility] 11/28/2012 1:40 PM Yaneth Griffith MD Psychiatry and Behavioral Health [phone] [facility] Joint Appt Questionnaire Five D Res-Psych LEB 5D [phone] [facility] Future Orders Please Complete By Expires Schedule appointment [[id number] Custom] Process Instructions: Scheduling Instructions: Comments: Questions: [...] Contact Info) Description 05/23/2024 Hospital Encounter [place]thing [place] [phone] Lexii Ceja MD [facility] OBSTETRICS [place] [address] documented as of this encounter Procedures Procedure Name Priority Date/Time Associated Diagnosis Comments US OB FOLLOW UP Routine 09/04/2012 3:00 PM EDT URINALYSIS WITH REFLEX CULTURE Routine 09/03/2012 10:53 PM EDT URINE CULTURE Routine 09/03/2012 10:46 PM EDT HEPATITIS B SURFACE ANTIGEN Routine 09/03/2012 8:45 PM EDT HIV SCREEN, 4TH GENERATION ([facility]) Routine 09/03/2012 7:45 PM EDT SCAN, PERIPHERAL BLOOD Routine 3 7:45 PM EDT DIFFERENTIAL, AUTOMATED Routine 09/03/2012 7:45 PM EDT ABO/RH TYPING Routine 09/03/2012 7:45 PM EDT CBC (WITH DIFF) Routine 09/03/2012 7:45 PM EDT ANTIBODY SCREEN Routine 09/03/2012 7:45 PM EDT TYPE AND SCREEN ([facility]) Routine 09/03/2012 7:45 PM EDT GROUP B [...] 09/04/2012 03:08 pm) Patient Info ID: ? [id number] ? : ??[birth year] (22 yrs) Name: ? PREETHI Godoy ?Visit Date: 09/04/2012 02:50 pm ? LOUISE- ? FRANK Performed By Performed By: ?Ana Laura Urban Attending: ? Mathew LIMA, Lalita Diop Referred By: ? CHUCK JANE MD Service(s) Provided UOBFOL - Efw - Growth - Reevaluation - [place] ?[id number] - [id number] Indications 22yo at 30.0 wks admitted for [...] Final 09/04/2012 03:08 pm) Patient Info ID: [id number] : [birth year] (22 yrs) Name: PREETHI Godoy Visit Date: 09/04/2012 02:50 pm MARIO MARIE Performed By Performed By: Ana Laura Urban Attending: Lalita Quan MD Referred By: CHUCK JANE MD Service(s) Provided UOBFOL - Efw - Growth - Reevaluation - [place] [id number] - [id number] Indications 22yo at 30.0 wks admitted for [...] to participate in the care [facility]. Please do not hesitate to call if [...] Urine Dipstick Hazy(A) Clear CERNER MILLENNIUM Specific [place] Urine Automated 1.006 1.002 - 1.030 CERNER [...] EDT) Urine Culture ? Patient Name: MELONY AMNI, ?? Ordered By: LALITA QUAN ? PREETHI Godoy ? MR#: [id number] ?LOC: ??BP ? /Sex: ??1990 (22 years), [...] - GEN ERAL ORDERABLES Performing Organization Address City/[facility] Co de Phone Number HANNAH HARKINSENNIUM * Hepatitis B Surface Antigen (09/03/2012 8:45 PM EDT) Hepatitis B Surface Antigen Negative Negative CERNER TORINENNIUM Blood specimen (specimen) 09/03/2012 8:45 PM EDT 09/03/2012 8:55 PM EDT Narrative Resulting Agency Comment Spec In Lab Mely Mccord MD CHEMISTRY ORDERABLES Performing Organization Address [facility] Co de Phone Number CERSWETA HARKINSENNIUM * (ABNORMAL) Differential, Automated (09/03/2012 7:45 [...] 0.7 0.2 - 1.0 x10(3)/mc L CERNER TORINENNIUM Eos % 0.5 0.0 - 7.0 % CERNER MILLENNIUM Eosinophils Abs 0.0 0.0 - 0.5 x10(3)/mc L CERNER MILLENNIUM Basophil % 0.1 0.0 - 2.0 % CERNER TORINENNIUM Baso Absolute 0.0 0.0 - 0.2 x10(3)/mc L CERSWETA HARKINSENNIUM Immature Gran % 0.00 0.00 - 0.66 % HANNAH POTTERIUM Comment: Immature granulocytes(IG's)percentage and absolute count will include metamyelocytes, myelocytes, and promyelocytes. Blood smears from CBCs yielding IG's will be scanned manually for concordance. If this scan disagrees with the automated IG or if promyelocytes are noted, a manual differential will be performed. Immature Gran Absolute 0.00 0.00 - 0.05 x10(3)/mc L HANNAH POTTERIUM Blood specimen (specimen) 09/03/2012 7:45 PM EDT 09/03/2012 8:05 PM EDT Lalita Quan MD HEMATOLOGY ORDERAB LES Performing Organization Address [facility] Co de Phone Number HANNAH SERRANO * Scan, Peripheral Blood (09/03/2012 7:45 PM EDT) Pathologist [facility] Plat estimate Normal HANNAH POTTERIUM RBC Morphology Abnormal CERNE R MILLENNIUM Macrocyte 1-5 /HPF HANNAH POTTERIUM Blood specimen (specimen) 09/03/2012 7:45 PM EDT 09/03/2012 8:05 PM EDT Narrative Resulting Agency Comment Spec In Lab Lalita Quan MD HEMATOLOGY ORDERAB LES Performing Organization Address City/[facility]/ZIP Co de Phone Number HANNAH SERRANO * HIV Antibody Rapid Test (09/03/2012 7:45 PM EDT) Pathologist [facility] HIV Ab/Ag Rapid Non-Reactive Non-React pancho [facility] Comment:Testing done by [employer] Immunoassay. HIV Comment Negative screening test indicates low risk of HIV exposure. Called by: RANDI_, Read back by: Lia Rogers_, Date/Time:_ 21:45. HANNAH POTTERIUM Blood specimen (specimen) 09/03/2012 7:45 PM EDT 09/03/2012 9:19 PM EDT Narrative Resulting Agency Comment Spec In Lab Lalita Quan MD CHEMISTRY ORDERABL ES Performing Organization Address [facility] de Phone Number HANNAH POTTERIUM * Antibody screen (09/03/2012 7:45 PM EDT) Ab Screen Interp Negative HANNAH POTTERIUM Expires at [id number] on: [id number] HANNAH POTTERIUM Blood specimen (specimen) 09/03/2012 7:45 PM EDT 09/03/2012 8:08 PM EDT Narrative Resulting Agency Comment Spec In Lab Lalita Quan MD BLOOD BANK LAB ORD ERABLES Performing Organization Address [facility] de Phone Number HANNAH SERRANO * ABO/Rh Typing (09/03/2012 7:45 PM EDT) ABORH Type A Pos HANNAH POTTERIUM Blood specimen (specimen) 09/03/2012 7:45 PM EDT 09/03/2012 8:08 PM EDT Narrative Resulting Agency Comment Spec In Lab Lalita Quan MD BLOOD BANK LAB ORD ERABLES Performing Organization Address [facility] de Phone Number HANNAH SERRANO * (ABNORMAL) CBC (with Diff) (09/03/2012 7:45 PM EDT) White Blood Cell 10.0 4.0 - 10.0 x10(3)/mc L CERSWETA MILLENNIUM Red Blood Cell 3.48(L) 3.93 - 5.22 x10(6)/mc L CERNER TORINENNIUM Hemoglobin 11.9 11.2 - 15.7 gm/dL CERSWETA HARKINSENNIUM Hematocrit 34.0 34.0 - 45.0 % CERNER [...] MD HEMATOLOGY ORDERAB LES Performing Organization Address City/[facility] Co de Phone Number [facility] * Group B Streptococcus Screen (09/03/2012 7:08 PM EDT) GBS Screen Neg [facility] MILLENNIUM Pooled specimen from vaginal introitus and rectal swab (specimen) 09/03/2012 7:08 PM EDT 09/03/2012 7:31 PM EDT Comment:PENICILLIN ALLERGY?- >NO Narrative Resulting Agency Comment Spec In Lab Lalita Quan MD MICROBIOLOGY - GEN ERAL ORDERABLES Performing Organization Address City/[facility] Co de Phone Number [facility] * (ABNORMAL) Urinalysis with microscopic (09/03/2012 7:08 [...] Urine Dipstick Hazy(A) Clear CERNER MILLENNIUM Specific [place] Urine Automated 1.019 1.002 - 1.030 CERNER [...] * (ABNORMAL) Rapid Qual Drug Screen, Urine ([facility]) (09/03/2012 7:08 PM EDT) Pathologist [facility] Marijuana Metabolites Screen Presumptive Pos(A) None Detected CERNER MILLENNIUM Comment: Please note that as of 04/12/2012 the testing device changed to the PROFILE-V V[employer]a-Bar Drugs of Abuse Test System. The marijuana metabolites screen detects the THC Metabolite (11-dpc-5-carboxy- 9-THC) ??at concentrations >50 ng/mL. Be aware [...] Buprenorphine Screen None Detected None Detected CERNER sailsquareIUM Comment: Please note that as of 04/12/2012 [...] Lab Lalita Quan MD URINE ORDERABLES HANNAH POTTERCotera * Group B Strep Culture Screen (09/03/2012 7:08 PM EDT) Group B Streptococcus Culture ? Patient Name: NICHELLE [facility], ?? Ordered By: LALITA QUAN ? SORCHA E ? MR#: [id number] ?LOC: ??BP ? /Sex: ??1990 (22 years), ? Female ? PROCEDURE: Group B Streptococcus Culture ?SOURCE: Vag/Rectal ? COLLECTED: 09/03/2012 19:08 ?FREE TEXT SOURCE: Penicillin Allergy?->No ? STARTED: 09/03/2012 19:31 ? FINAL REPORT ? Final Report ? Verified: 013 10:07 ? No Group B Streptococci isolated ? PRELIMINARY REPORT ? Preliminary Report ? Verified: 013 13:42 ? Culture in progress ? [facility] Pooled specimen from vaginal introitus and rectal swab (specimen) 09/03/2012 7:08 PM EDT 09/03/2012 7:31 PM EDT Comment:PENICILLIN ALLERGY?- >NO Narrative Resulting Agency Comment Spec In Lab Lalita Quan MD MICROBIOLOGY - GEN ERAL ORDERABLES [facility] documented in this encounter Visit [...] PM EDT 8 mg vitamin 27 & kepwtxe-qfwb-WS 60 mg iron-1 mg tablet Tab 1 [...] 1999 (Given - Provider: Genet Chun RN) 193 (Due)1999 (Given - Provider: Carmen Cisneros RN) [...] Provider: Carmen Cisneros RN) vitamin 27 & xldetrz-wucf-ZQ 60 mg iron-1 mg tablet Tab 1 tablet (CANCELED) 1 tablet, Oral, DAILY, First dose on Sun09/03/12 at 1930, Until Discontinued, Routine 193 (Not Given - Provider: Genet Chun RN - Reason: NPO) 0900 (Given - Provider: Eve Friedman RN) 0834 (Given - Provider: Maite Luke) sodium chloride 0.9 % flush 5 mL (CANCELED) 5 mL, Intravenous, EVERY 12 HOURS, First dose on Sun09/03/12 at 1930, Until Discontinued 193 (Given - Provider: Genet Chun RN) 0730 (Given - Provider: Eve Friedman RN)193 (Due) 0759 (Given - Provider: Maite Luke) Continuous Medication Order 09/03/2012 09/04/2012 09/05/2012 lactated ringers infusion 1,000 mL (CANCELED) 1,000 mL, at 100 mL/hr, Intravenous, CONTINUOUS, Starting on Sun09/03/12 at 1930, Until Sun09/05/12 at 1257 1930 (New Bag - Provider: Genet Chun RN) 0530 (New Bag - Provider: Renetta Hurt RN)1614 (Stopped - Provider: Taty Sepulveda, TRE) PRN Medication Order 09/03/2012 09/04/2012 09/05/2012 acetaminophen (TYLENOL) tablet 650 mg (CANCELED) 650 mg, Oral, EVERY 4 HOURS PRN, Starting on Sun09/03/12 at 1906, Until Sun09/05/12 at 1257, Pain, Headaches, mild pain, Not exceed 4 grams per 24 hours, Routine 1954 (Given - Provider: Genet Chun, TRE) ondansetron [...] Genet Chun RN) 213 (Given - Provider: aCrmen Cisneros RN) Linked Groups Order Group 1: [...] Routine documented in this encounter Care Teams Corrections Identification Technician Relationship Specialty Start Date End Date None None PCP - General 05/08/12 04/20/14 documented as of this encounter
--- OUTSIDE RECORDS SUMMARY | 2024-03-15 15:31 | XMS_ITS | Encounter Summary ---
Author Organization [facility] [place] [address] Care Team Providers Care Surfacer Name Role Phone None Primary Care Provider Unavailabl e Reason for Visit * Reason Onset Date Comments Advice Only 08/08/2012 Encounter Details Date Type Department Care Team (Late st Contact Info) Description 08/08/2012 Telephone Endocrinology at [facility] [place] [phone] Omayra Meredith LPN Advice Only Social History [...] that Rx go to [facility] in [facility] documented in this encounter Plan of Treatment Upcoming Encounters Date Type Department Care Team (Late st Contact Info) Description 05/23/2024 Hospital [place] [address] Lexii Ceja MD [facility] [address] OBSTET[place] [address] documented as of this encounter Visit Diagnoses Not on filedocumented in this encounter Care Teams Surfacer Relationship Specialty Start Date End Date None None PCP - General 05/08/12 04/20/14 documented as of this encounter
--- OUTSIDE RECORDS SUMMARY | 2024-03-15 15:31 | XMS_ITS | Encounter Summary ---
Author Organization [facility] [place] [address] Care Team Providers Care Order Filler Name Role Phone None Primary Care Provider Unavailabl e Encounter Details Date Type Department Care Team (Late st Contact Info) Description 09/12/2012 Telephone Obstetrics [place] [address] Valorie Hair MD [facility] [address] OBSTETRICS & [place] [address] Social History Tobacco Use Types Packs/Day Years [...] to patient. Patient reporting that she had [place]-Vazquez earlier today that went away. She then [...] Contact Info) Description 05/23/2024 [place] [address] Lexii Ceja MD [facility] [address] OBSTETRICS [place] [address] documented as of this encounter Visit Diagnoses Not on filedocumented in this encounter Care Teams Order Filler Relationship Specialty Start Date End Date None None PCP - General 05/08/12 04/20/14 documented as of this encounter
--- OUTSIDE RECORDS SUMMARY | 2024-03-15 15:31 | XMS_ITS | Encounter Summary ---
Author Organization [facility] Address [facility] [place] [address] Care Team Providers Care Catalogue Librarian Name Role Phone None Primary Care Provider Unavailabl e Reason for Visit * Reason Comments Abdominal Pain abd pain and back pa in worse today Encounter Details Date Type Department Care Team (Latest Contact Info) Description 09/08/2012 3:03 PM EDT - 09/08/2012 6:56 PM EDT Hospital Encounter Birthing [place] [address] Katelynn Lawton MD [facility] OBSTETRICS & [place] [address] Discharge Disposition: Home Social History Tobacco Use [...] Lawton MD - 09/08/2012 4:01 PM EDT [facility] Triage Visit Name: Andree Hummel MR#: [id number] Date of Visit: 09/08/2012 Time: 4:01 PM CC: back pain and pelvic pressure HPI: Andree is a 22 y.o. y with Estimated Date of Delivery: 11/12/12 at 30w5d gestation complaining of back pain. Of note, she was admitted to [facility] with contractions. During that admission her cervix [...] by mouth nightly. 30 tablet 2 ??? ygwmvvijuo-qymusiqtsqmkn-lexddtnd (FIORICET, ESGIC) per tablet Take 1 tablet [...] Present Decelerations: occasional variable decels. Variability: Moderate [place]: contractions every 1-4 minutes irregular. Labs: Component [...] Info) Description 05/23/2024 Hospital En[place] [address] Lexii Ceja MD [facility] OBSTETRICS [place] [address] documented as of this encounter Procedures Procedure [...] Urine Dipstick Hazy(A) Clear CERNER MILLENNIUM Specific [place] Urine Automated 1.009 1.002 - 1.030 CERNER [...] In Lab Katelynn Lawton MD URINE ORDERABLES CERNER TORINENNIUM documented in this encounter Visit Diagnoses Not on filedocumented in this encounter Care Teams Catalogue Librarian Relationship Specialty Start Date End Date None None PCP - General 05/08/12 04/20/14 documented as of this encounter
--- OUTSIDE RECORDS SUMMARY | 2024-03-15 15:31 | XMS_ITS | Encounter Summary ---
Author Organization [facility] [place] [address] Care Team Providers Care Furniture Shampooer Name Role Phone None Primary Care Provider Unavailabl e Reason for Visit * Reason Onset Date Comments Labs Only 11/14/2012 Encounter Details Date Type Department Care Team (Late st Contact Info) Description 11/14/2012 Telephone Endocrinology at [facility] [place] [phone] Omayra Meredith LPN Labs Only Social History [...] to have lab order to go to [facility]. TSH order electronically faxed. Patient told that if when she arrives at lab order is not they should not leave but ask lab to call us. Patient agrees with plan of care. documented in this encounter Plan of Treatment Upcoming Encounters Date Type Department Care Team (Late st Contact Info) Description 05/23/2024 Hospital Encounter [place] [phone] Lexii Ceja MD [facility] [place] [address] documented as of this encounter Results * (ABNORMAL) TSH (12/12/2012) Thyroid Stimulating Hormone 0.15(EXTER NAL/ABN) Blood specimen (specimen) Griffin Wallis III, MD CHEMISTRY ORDER AMANDA documented in this encounter Visit Diagnoses Diagnosis Hypothyroidism- Primary Unspecified hypothyroidism documented in this encounter Care Teams Furniture Shampooer Relationship Specialty Start Date End Date None None PCP - General 05/08/12 04/20/14 documented as of this encounter
--- OUTSIDE RECORDS SUMMARY | 2024-03-15 15:31 | XMS_ITS | Encounter Summary ---
Author Organization [facility] [place] [address] Care Team Providers Care Wafer Fab Technician Name Role Phone Valencia Adhikari APRN Primary Care Provider [phone] Reason for Visit * Reason Comments Other Encounter Details Date Type Department Care Team (Late st Contact Info) Description 04/01/2015 Telephone Obstetrics [place] [phone] Pam Chaidez DOBBY LOOMS PEGGER [facility] OBSTETRICS [place] [address] Social History Tobacco Use Types Packs/Day Years [...] Description 05/23/2024 [place] [address] [facility] OBSTETRICS [place] [address] documented as of this encounter Visit Diagnoses Not on filedocumented in this encounter Care Teams Wafer Fab Technician Relationship Specialty Start Date End Date Valencia Adhikari, DOBBY LOOMS PEGGER [address] [place] [address] PCP - General 04/21/14 07/04/23 documented as of this encounter
--- OUTSIDE RECORDS SUMMARY | 2024-03-15 15:31 | XMS_ITS | Encounter Summary ---
Author Organization [facility] Address [facility] [place] [address] Care Team Providers Care Oak Tanner Name Role Phone None Primary Care Provider Unavailabl e Reason for Visit * Reason Comments Routine Visit Encounter Details Date Type Department Care Team (Latest Contact Info) Description 09/02/2012 9:15 AM EDT Routine Obstetrics [place] [address] Myles Shipman MD [facility] DR OBSTETRICS & [place] [address] GA: 29w6d Discharge Disposition: Home Social History [...] Contact Info) Description 05/23/2024 [place] [address] Lexii Ceja MD [facility] DR OBSTETRICS [place] [address] documented as of this encounter Procedures Procedure Name Priority Date/Time Associated Diagnosis Comments TSH Routine 09/02/2012 10:04 AM EDT Hypothyroidism, postsurgical documented in this encounter Results * (ABNORMAL) TSH (09/02/2012 10:04 AM EDT) Thyroid Stimulating Hormone 34.90(H) 0.27 - 4.20 mcIU/mL [facility] Blood specimen (specimen) 09/02/2012 10:04 AM EDT 09/02/2012 10:13 AM EDT Narrative Resulting Agency Comment Spec In Lab Myles Shipman MD CHEMISTRY ORDERABLES [facility] documented in this encounter Visit Diagnoses Diagnosis , supervision of, high-risk- Primary Unspecified high-risk Hypothyroidism, postsurgical Postsurgical hypothyroidism Migraine Migraine, unspecified, without mention of intractable migraine without mention of status migrainosus documented in this encounter Care Teams Oak Tanner Relationship Specialty Start Date End Date None None PCP - General 05/08/12 04/20/14 documented as of this encounter
--- OUTSIDE RECORDS SUMMARY | 2024-03-15 15:31 | XMS_ITS | Encounter Summary ---
Author Organization [facility] [place] [address] Care Team Providers Care Cafe Assistant Name Role Phone None Primary Care Provider Unavailabl e Reason for Visit * Reason Onset Date Comments Medication Refill 08/08/2012 Encounter Details Date Type Department Care Team (Late st Contact Info) Description 08/08/2012 Refill [place] [phone] Griffin Wallis III, MD [facility] [place] [address] Hypothyroidism (Primary Dx) Social History Tobacco Use [...] 05/23/2024 Hospital [place] [address] Lexii Ceja MD [facility] OBSTETRICS [place] [address] documented as of this encounter Visit Diagnoses Diagnosis Hypothyroidism- Primary Unspecified hypothyroidism documented in this encounter Care Teams Cafe Assistant Relationship Specialty Start Date End Date None None PCP - General 05/08/12 04/20/14 documented as of this encounter
--- OUTSIDE RECORDS SUMMARY | 2024-03-15 15:31 | XMS_ITS | Encounter Summary ---
Author Organization [facility] [place] [address] Care Team Providers Care Commercial Kitchen Service Technician Name Role Phone None Primary Care Provider Unavailrisa e Encounter Details Date Type Department Care Team (Late st Contact Info) Description 04/17/2014 Telephone [place] [address] Taty Browne Social History Tobacco Use Types [...] Name: Andree Hummel : 1990 Phone number: [phone] (home) Mailing address: [place] [address] Age: 23 y.o. Appointment date: TBD Appointment [...] X-rays: Yes - When? Where? Notes: 04/15/14 [facility] [place] PH: [phone] FAX: [phone] IMG PUSH MRI: No CT Scan: No [...] copy to your next appointment. 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 MyDH Do you have a MyD account? No - Patient Declined - MOM BOOKED documented in this encounter Plan of Treatment Upcoming Encounters Date Type Department Care Team (Late st Contact Info) Description 05/23/2024 Hospital [place] [phone] Lexii Ceja MD [facility] OBSTETRICS [place] [address] documented as of this encounter Visit Diagnoses Not on filedocumented in this encounter Care Teams Commercial Kitchen Service Technician Relationship Specialty Start Date End Date None None PCP - General 05/08/12 04/20/14 documented as of this encounter
--- OUTSIDE RECORDS SUMMARY | 2024-03-15 15:32 | XMS_ITS | Encounter Summary ---
Author Organization [facility] [place] [address] Care Team Providers Care Beef Trimmer Name Role Phone None Primary Care Provider Unavailabl e Encounter Details Date Type Department Care Team (Late st Contact Info) Description 06/12/2012 10:45 AM EST Routine Obstetrics [place] [address] CLINIC, Lalita Bond MD [facility] DR OBSTETRICS [place] [address] GA: 18w1d Discharge Disposition: Home Social History [...] 05/23/2024 Hospital [place] [phone] Lexii Ceja MD [facility] [place] [address] documented as of this encounter Results * US OB transvaginal (07/04/2012 3:08 PM EDT) Anatomical Region Laterality Modality Pelvis, Abdomen Ultrasound 07/04/2012 3:08 PM EDT Narrative 07/04/2012 3:20 PM EDT ?OBSTETRICS REPORT ? (Signed Final 07/04/2012 03:20 pm) Patient Info ID: ? [id number] ? : ??[birth year] (22 yrs) Name: ? PREETHI Godoy ?Visit Date: 07/04/2012 03:03 pm ? LOUISE- ? FRANK Performed By Performed By: ?Itzel Lezama RDMS Attending: ? Anca LIMA, Phylicia J. Referred By: ? LALITA QUAN MD Service(s) Provided UOBTV - Viability - Cervical Length - Transvaginal - ??[id number] Indications cervical length Evaluation Num Of Fetuses: [...] Final 07/04/2012 03:20 pm) Patient Info ID: [id number] : [birth year] (22 yrs) Name: PREETHI Godoy Visit Date: 07/04/2012 03:03 pm MARIO MARIE Performed By Performed By: Itzel Lezama RDMS Attending: Phylicia March MD. Referred By: LALITA QUAN MD Service(s) Provided UOBTV - Viability - Cervical Length - Transvaginal - [id number] Indications cervical length Evaluation Num Of Fetuses: [...] of documented in this encounter Care Teams Beef Trimmer Relationship Specialty Start Date End Date None None PCP - General 05/08/12 04/20/14 documented as of this encounter
--- OUTSIDE RECORDS SUMMARY | 2024-03-15 15:32 | XMS_ITS | Encounter Summary ---
Author Organization [facility] [place] [address] Care Team Providers Care Creative Services Intern Name Role Phone None Primary Care Provider Unavailabl e Encounter Details Date Type Department Care Team (Late st Contact Info) Description 03/23/2011 Orders [place] [phone] Chloé Santa RN Social History Tobacco Use [...] Contact Info) Description 05/23/2024 Hospital [place] [phone] Lexii Ceja MD [facility] OBSTETRICS [place] [address] documented as of this encounter Visit Diagnoses Not on filedocumented in this encounter Care Teams Creative Services Intern Relationship Specialty Start Date End Date None None PCP - General 02/23/11 05/09/11 documented as of this encounter
--- OUTSIDE RECORDS SUMMARY | 2024-03-15 15:32 | XMS_ITS | Encounter Summary ---
Author Organization [facility] [place] [address] Care Team Providers Care Tortilla Maker Name Role Phone None Primary Care Provider Unavailabl e Encounter Details Date Type Department Care Team (Late st Contact Info) Description 03/23/2011 Orders [place] [phone] Chloé Santa RN Social History Tobacco Use [...] Contact Info) Description 05/23/2024 Hospital [place] [address] Lexii Ceja MD [facility] [place] [address] documented as of this encounter Visit Diagnoses Not on filedocumented in this encounter Care Teams Tortilla Maker Relationship Specialty Start Date End Date None None PCP - General 02/23/11 05/09/11 documented as of this encounter
--- OUTSIDE RECORDS SUMMARY | 2024-03-15 15:32 | XMS_ITS | Encounter Summary ---
Author Organization [facility] [place] [address] Care Team Providers Care Window Shade Estimator Name Role Phone None Primary Care Provider Unavailabl e Encounter Details Date Type Department Care Team (Latest Contact Info) Description 06/12/2012 9:49 AM EST - 06/12/2012 11:59 PM EST Hospital Encounter Ultrasound at [facility] [place] [place] [address] , supervision of, high-risk Social History Tobacco [...] Info) Description 05/23/2024 Hospital Encounter Birthing [facility] [place] [address] Lexii Ceja MD [facility] DR OBSTETRICS [place] [address] documented as of this encounter Procedures Procedure [...] 06/12/2012 11:07 am) Patient Info ID: ? [id number] ? : ??[birth year] (21 yrs) Name: ? PREETHI Godoy ?Visit Date: 06/12/2012 10:49 am ? LOUISE- ? FRANK Performed By Performed By: ?Itzel Lezama RDMS Attending: ? Mathew LIMA, Lalita Diop Referred By: ? Walt BAY MD Service(s) Provided [facility] - Targeted Morphology - Genetics - ? [id number] UOBTV - Viability - Cervical Length - Transvaginal - ??[id number] [id number] Indications hypothyroid; possible history of 20 week [...] Tract: ?Visualized L Outflow Tract: ?Visualized Cardiac Zullinger: ? Visualized Diaphragm: ?Visualized Abdomen Ventral Wall: [...] Final 06/12/2012 11:07 am) Patient Info ID: [id number] : [birth year] (21 yrs) Name: PREETHI Godoy Visit Date: 06/12/2012 10:49 am MARIO MARIE Performed By Performed By: Itzel Lezama RDMS Attending: Lalita Carmona MD Referred By: Walt BAY MD Service(s) Provided [facility] - Targeted Morphology - Genetics - [phone] UOBTV - Viability - Cervical Length - Transvaginal - [id number] [phone] Indications hypothyroid; possible history of 20 week [...] Tract: Visualized L Outflow Tract: Visualized Cardiac Zullinger: Visualized Diaphragm: Visualized Abdomen Ventral Wall: Visualized [...] participate in the care of PREETHI Walt HUMMEL. Please do not hesitate to call if you have any questions. Lalita Carmona MD Electronically Signed Final Report 06/12/2012 11:07 am E Jessica Bay MD IMG US OB ORDERAB LES documented in this encounter Visit Diagnoses Diagnosis , supervision of, high-risk Unspecified high-risk documented in this encounter Care Teams Window Shade Estimator Relationship Specialty Start Date End Date None None PCP - General 05/08/12 04/20/14 documented as of this encounter
--- OUTSIDE RECORDS SUMMARY | 2024-03-15 15:32 | XMS_ITS | Encounter Summary ---
Author Organization [facility] [place] [address] Care Team Providers Care Plate Mill Mill Hand Name Role Phone None Primary Care Provider Unavailabl e Reason for Visit * Reason Onset Date Comments Neck Pain 03/23/2011 Encounter Details Date Type Department Care Team (Late st Contact Info) Description 03/23/2011 Telephone General Surgery at [facility] [place] [address] Chloé Santa RN Neck Pain Social History [...] from Andree who reports having neck pain. [facility] Operative Note Patient Name: Andree Hummel : [id number] MR#: [id number] Case Date: 03/22/2011 Surgeon: Surgeon(s) and Role: [...] Contact Info) Description 05/23/2024 [place] [address] Lexii Ceja MD [facility] OBSTETRICS [place] [address] documented as of this encounter Visit Diagnoses Not on filedocumented in this encounter Care Teams Plate Mill Mill Hand Relationship Specialty Start Date End Date None None PCP - General 02/23/11 05/09/11 documented as of this encounter
--- OUTSIDE RECORDS SUMMARY | 2024-03-15 15:32 | XMS_ITS | Encounter Summary ---
Author Organization [facility] [place] [address] Care Team Providers Care Campaign Marketing Manager Name Role Phone None Primary Care Provider Unavailabl e Encounter Details Date Type Department Care Team (Late st Contact Info) Description 05/29/2012 External Results Obstetrics [place] [address] Myles Irwin, RN Social History Tobacco Use [...] Info) Description 05/23/2024 Hospital [place] [address] Lexii Ceja MD [facility] DR OBSTETRICS [place] [address] documented as of this encounter Procedures Procedure Name Priority Date/Time Associated Diagnosis Comments TSH Routine 05/21/2012 INITIAL EXTERNAL RESULTS PANEL Routine 05/06/2012 documented in this encounter Results * (ABNORMAL) TSH (05/21/2012) Thyroid Stimulating Hormone 2.42(Exter nal Lab) Blood specimen (specimen) 05/21/2012 Griffin Wallis III, MD CHEMISTRY ORDER AMANDA * (ABNORMAL) Initial External Lab Panel (05/06/2012) ABORH Type A+(Accountant Auditor al Lab) Ab Screen Interp Positive( EXTERNAL/ [...] on filedocumented in this encounter Care Teams Campaign Marketing Manager Relationship Specialty Start Date End Date None None PCP - General 05/08/12 04/20/14 documented as of this encounter
--- OUTSIDE RECORDS SUMMARY | 2024-03-15 15:32 | XMS_ITS | Encounter Summary ---
Author Organization [facility] Address [address] [place] [address] Care Team Providers Care Store Protection Specialist Name Role Phone None, Provider Primary Care Provider Tatum Marcelino MD Unavailable [phone] Encounter Details Date Type Department Care Team (Late st Contact Info) Description 03/08/2021 Lab Requisition [facility] Pathology & Laboratory Medicine - [address] [address] Outr Resulting Lab, Provider Social History Tobacco Use Types Packs/Day Years Used Date Smoking Tobacco: Every Day Cigarettes Comments No Sex and Gender Information Value Date Recorded Sex Assigned at Not on file Legal Sex Female 18:41 EST Gender Identity Not on file Sexual Orientation Not on file documented as of this encounter Plan of Treatment Not on file documented as of this encounter Procedures Procedure Name Priority Date/Time Associated Diagnosis Comments T3 FREE Routine 03/08/2021 10:45 EST documented in this encounter Results * T3 FREE (03/08/2021 10:45 EST) T3, Free 4.7 2.8 - 5.3 pg/mL 03/08/2021 21:47 EST [facility] Blood VENOUS BLOOD / Unknown 03/08/2021 10:45 EST 03/08/2021 21:09 EST us Provider Outr Resulting Lab CHEMISTRY & BLOOD GA S ORDERABLES Final Result [facility] [address] [place] [address] documented in this encounter Visit Diagnoses Not on filedocumented in this encounter Care Teams Store Protection Specialist Relationship Specialty Start Date End Date None, Provider PCP - General 09/08/13 Tatum Lugo MD [address] [place] [phone] 09/08/13 documented as of this encounter
--- OUTSIDE RECORDS SUMMARY | 2024-03-15 15:32 | XMS_ITS | Encounter Summary ---
Author Organization [facility] Address [address] [place] [address] Care Team Providers Care Slasher Runner Name Role Phone Unavailable Primary Care Provider Unavailabl e Encounter Details Date Type Department Care Team (Late st Contact Info) Description 05/14/2007 8:03 EST - 05/14/2007 11:59 EST Hospital Encounter [address] [address] Harsha Kingston MD [address] [place] [address] Discharge Disposition: Auto Discharge Social History Tobacco Use Types Packs/Day Years Used Date Smoking Tobacco: Never Assessed Comments Unknown Sex and Gender Information Value Date Recorded [...]
--- OUTSIDE RECORDS SUMMARY | 2024-03-15 15:32 | XMS_ITS | Encounter Summary ---
Author Organization [facility] Address [facility] [place] [address] Care Team Providers Care Movie Actor Name Role Phone Mya Varghese MD Primary Care Provider [phone] Reason for Visit * Reason Comments Advice Only H/O thyroidectomy Encounter Details Date Type Department Care Team (Late st Contact Info) Description 04/25/2012 9:45 AM EST Office Visit Obstetrics [place] [phone] Maite Marks MD [facility] DR OBSTET[place] [address] Thyroiditis (Primary Dx); Hypothyroidism complicating ; Family [...] NECK DISSECTION performed by JUAN ESPARZA at [facility] OR ??? Somatosensory test, any/all per. nerves, trunk or head 03/22/2011 FACIAL NERVE MONITORING, SETUP performed by JUAN ESPARZA at [facility] MA[facility] OR ??? Tonsillectomy ??? [place] tooth extraction ??? Upper gastrointestinal endoscopy for [...] hypothyroidism. If her sister does have Long-chain 6-ackdusxoobr-UiO dehydrogenase (LCHAD) deficiency, the patient has a [...] Contact Info) Description 05/23/2024 [place] [address] Lexii Ceja MD [facility] DR OBSTET[place] [address] documented as of this encounter Visit Diagnoses Diagnosis Thyroiditis- Primary Thyroiditis, unspecified Hypothyroidism complicating Thyroid dysfunction of mother, complicating , childbirth, or the puerperium, unspecified as to episode of care Family history of metabolic and nutritional disorder Family history of other endocrine and metabolic diseases documented in this encounter Care Teams Movie Actor Relationship Specialty Start Date End Date Mya Varghese MD [address] [place] [place] [address] PCP - General 05/10/11 05/07/12 documented as of this encounter
--- OUTSIDE RECORDS SUMMARY | 2024-03-15 15:32 | XMS_ITS | Encounter Summary ---
Author Organization [facility] [place] [address] Care Team Providers Care Sebd Teacher Name Role Phone None Primary Care Provider Unavailabl e Reason for Visit * Reason Onset Date Comments Medication Refill 06/04/2012 Encounter Details Date Type Department Care Team (Late st Contact Info) Description 06/04/2012 Ref[place] [address] Griffin Wallis III, MD [facility] [place] [address] Hypothyroidism (Primary Dx) Social History Tobacco Use [...] Contact Info) Description 05/23/2024 Hospital Encounter [place] [address] Lexii Ceja MD [facility] OBSTETRICS [place] [address] documented as of this encounter Visit Diagnoses Diagnosis Hypothyroidism- Primary Unspecified hypothyroidism documented in this encounter Care Teams Sebd Teacher Relationship Specialty Start Date End Date None None PCP - General 05/08/12 04/20/14 documented as of this encounter
--- OUTSIDE RECORDS SUMMARY | 2024-03-15 15:32 | XMS_ITS | Encounter Summary ---
Author Organization [facility] [place] [address] Care Team Providers Care Operations Engineer Name Role Phone None Primary Care Provider Unavailabl e Reason for Visit * Reason Comments Thyroid Nodule Encounter Details Date Type Department Care Team ([facility] st Contact Info) Description 02/23/2011 1:00 PM EST Office [place] [phone] Jona Dickinson MD [address] [place] [address] Hypothyroid (Primary Dx); Thyroid nodule Discharge Disposition: [...] the thyroid gland were obtained using a [employer] and an HFL38/13-6 broadband linear array transducer. [...] Dickinson. Yessy Novak MD Endocrinology Fellow [facility] Section of Endocrinology documented in this encounter Plan of Treatment Upcoming Encounters Date Type Department Care Team (Late st Contact Info) Description 05/23/2024 Hospital [place] [address] Lexii Ceja MD [facility] [address] OBSTETRICS [place] [address] documented as of this encounter Procedures Procedure Name Priority Date/Time Associated Diagnosis Comments NON-CLERICAL ADJUSTER FINAL REPORT Routine 02/23/2011 4:31 PM EST TSH Routine 02/23/2011 2:25 PM EST Hypothyroid CYTOPATHOLOGY NON-GYNECOLOGICAL Routine 02/23/2011 2:18 PM EST Hypothyroid Thyroid nodule documented in this encounter Results * Non-Blow Torch Burner Final Report (02/23/2011 4:31 PM EST) Non-Blow Torch Burner Final Report [id number] ? Location: 5C The signing pathologist has (i) examined the relevant preparation(s) for the specimen(s) and (ii) rendered or confirmed the diagnosis(es). . ? Pathology Non-Blow Torch Burner Cytology Final Report Clinical Information Specimen Source [...] ?Screened by: ? FMQ ?Rescreened by: ?? FCL,LOG OPERATIONS COORDINATOR 03/01/11 ?Verified by: ? 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 Due to the predominance of microfollicles on the LBP this case is being classified in the atypical category. This may represent an adenomatous nodule though a neoplastic process cannot be excluded. This case was reviewed at the intradepartmental multihead conference with Alonzo Stokes, Juan Ramon and Lori. [facility] 02/23/2011 4:31 PM EST Jona Dickinson MD PATHOLOGY/CYTOLOGY O RDERABLES Performing Organization Address [facility] Co de Phone Number [facility] * TSH (02/23/2011 2:25 PM EST) Thyroid Stimulating Hormone 1.62 0.27 - 4.20 mcIU/mL [facility] Blood specimen (specimen) 02/23/2011 2:25 PM EST 02/23/2011 2:51 PM EST Jona Dickinson MD CHEMISTRY ORDERABLES Performing Organization Address [facility] Co de Phone Number [facility] * Cytopathology Non-Gynecological (02/23/2011 2:18 PM EST) AP Specimen 02/23/2011 2:18 PM EST 02/23/2011 2:18 PM EST Narrative [facility] - 02/23/2011 2:18 PM EST Specimen requisition ordered. ??Separate Pathology report to follow Jona Dickinson MD PATHOLOGY/CYTOLOGY O RDERAARIANNA Performing Organization Address [facility] Co de Phone Number [facility] documented in this encounter Visit Diagnoses Diagnosis Hypothyroid- Primary Unspecified hypothyroidism Thyroid nodule Nontoxic uninodular goiter documented in this encounter Care Teams Operations Engineer Relationship Specialty Start Date End Date None None PCP - General 02/23/11 05/09/11 documented as of this encounter
--- OUTSIDE RECORDS SUMMARY | 2024-03-15 15:32 | XMS_ITS | Encounter Summary ---
Author Organization [facility] [place] [address] Care Team Providers Care Welder/Installer Name Role Phone None Primary Care Provider Unavailabl e Reason for Visit * Reason Comments Family History sister with possible LCHAD deficiency Encounter Details Date Type Department Care Team (Late st Contact Info) Description 05/22/2012 10:00 AM EST Office Visit [place]stetric[place] [address] Félix Richardson, [facility] [place] OBST[place] [address] Family history of metabolic disease (Primary Dx); [...] mother provided written authorization to review the [facility] medical records of Andree's sister, Ana Hummel ( 03/27/1999). 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 She then had numerous [...] with written information about LCHAD deficiency from [employer] (www. screening.info), which includes a list of [...] Contact Info) Description 05/23/2024 Hospital [place] [address] Lexii Ceja MD [facility] [address] OBST[place] [address] documented as of this encounter Visit Diagnoses Diagnosis Family history of metabolic disease- Primary Family history of other endocrine and metabolic diseases Genetic counseling documented in this encounter Care Teams Welder/Installer Relationship Specialty Start Date End Date None None PCP - General 05/08/12 04/20/14 documented as of this encounter
--- OUTSIDE RECORDS SUMMARY | 2024-03-15 15:32 | XMS_ITS | Referral Summary ---
Author Organization [facility] Address [address] [place] [address] Care Team Providers Care Sewing Teacher Name Role Phone None, Provider Primary Care Provider Tatum Marcelino MD Unavailable [phone] Allergies Active Allergy Reactions Criticality Noted Date Comments Meperidine 09/08/2013 Medications levothyroxine (SYNTHROID) 150 mcg tablet Take 175 [...] ? ANDREE ROJAS ? Accession #: ? [id number] : ? 1990 (Age: 26) ??F ?Collect Date: ? 05/21/2017 Location: ? [facility] ? Receive Date: ? 05/23/2017 Provider: ?RUSSELL VIVEROS BRAIDER OPERATOR-BC Copy to: ? Specimen/Source: ?Pap Test, [...] Report Date: ??05/29/2017 10:03 End of Report [facility] 05/21/2017 05/23/2017 us Russell Warner BRAIDER OPERATOR-BC PATHOLOGY ORDERABLES Fin al Result [facility] [address] [place] [address] from Last 3 Months or Most Recently Relevant to Health Maintenance Care Teams Sewing Teacher Relationship Specialty Start Date End Date None, Provider PCP - General 09/08/13 Tatum Lugo MD [address] [place] [phone] 09/08/13
--- OUTSIDE RECORDS SUMMARY | 2024-03-15 15:32 | XMS_ITS | Encounter Summary ---
Author Organization [facility] [place] [address] Care Team Providers Care Hot Roll Inspector Name Role Phone Mya Varghese MD Primary Care Provider [phone] Encounter Details Date Type Department Care Team (Late st Contact Info) Description 04/12/2012 Orders Only Obstetrics [place] [phone] Estelle Ribeiro RN Hypothyroidism, postsurgical (Primary Dx) [...] Info) Description 05/23/2024 Hospital [place] [phone] Lexii Ceja MD [facility] DR OBSTETRICS [place] [address] documented as of this encounter Visit Diagnoses Diagnosis Hypothyroidism, postsurgical- Primary Postsurgical hypothyroidism documented in this encounter Care Teams Hot Roll Inspector Relationship Specialty Start Date End Date Mya Varghese MD [address] [place] [address] PCP - General 05/10/11 05/07/12 documented as of this encounter
--- OUTSIDE RECORDS SUMMARY | 2024-03-15 15:32 | XMS_ITS | Encounter Summary ---
Author Organization [facility] Address [address] [place] [address] Care Team Providers Care Dental Biller Name Role Phone None, Provider Primary Care Provider Tatum Marcelino MD Unavailable [phone] Encounter Details Date Type Department Care Team (Latest Contact Info) Description 10/09/2013 7:21 EDT - 10/09/2013 7:22 EDT Hospital Encounter [address] [address] Jose Enrique Pacheco MD [address] [place] [address] Discharge Disposition: Home or Self [...] this encounter Medications at Time of Discharge levothyroxine (SYNTHROID) 150 mcg tablet Take 175 mcg by mouth daily. documented as of this encounter Discharge Disposition Disposition Code Departure Means Destination Home or Self Care documented in this encounter Plan of Treatment Not on file documented as of this encounter Visit Diagnoses Not on filedocumented in this encounter Care Teams Dental Biller Relationship Specialty Start Date End Date None, Provider PCP - General 09/08/13 Tatum Lugo MD [address] [place] [phone] 09/08/13 documented as of this encounter
--- OUTSIDE RECORDS SUMMARY | 2024-03-15 15:32 | XMS_ITS | Encounter Summary ---
Author Organization [facility] [place] [address] Care Team Providers Care Analytics Manager Name Role Phone None Primary Care Provider Unavailabl e Reason for Visit * Reason Onset Date Comments Muscle Pain 06/18/2012 Encounter Details Date Type Department Care Team (Late st Contact Info) Description 06/18/2012 Telephone Obstetrics and Gynecology at [facility] [place] [phone] Estelle Ribeiro RN Muscle Pain Social History [...] Contact Info) Description 05/23/2024 Hospital [place] [address] Lexii Ceja MD [facility] [address] OBSTETRICS [place] [address] documented as of this encounter Visit Diagnoses Not on filedocumented in this encounter Care Teams Analytics Manager Relationship Specialty Start Date End Date None None PCP - General 05/08/12 04/20/14 documented as of this encounter
--- OUTSIDE RECORDS SUMMARY | 2024-03-15 15:32 | XMS_ITS | Encounter Summary ---
Author Organization [facility] Address [address] [place] [address] Care Team Providers Care Web Marketing Assistant Name Role Phone Unavailable Primary Care Provider Unavailabl e Encounter Details Date Type Department Care Team (Late st Contact Info) Description 05/24/2007 11:52 EST Hospital Encounter [address] [address] Harsha Kingston MD [address] [place] [phone] Social History Tobacco Use Types Packs/Day Years [...]
--- OUTSIDE RECORDS SUMMARY | 2024-03-15 15:32 | XMS_ITS | Encounter Summary ---
Author Organization [facility] Address [address] [place] [address] Care Team Providers Care Institutional Asset Manager Name Role Phone None, Provider Primary Care Provider Tatum Marcelino MD Unavailable [phone] Encounter Details Date Type Department Care Team (Late st Contact Info) Description 09/17/2014 Results Only [facility] [phone] Dee Dee Shukla, [facility] [address] [place] [address] Social History Tobacco Use Types Packs/Day Years [...] ? ANDREE ROJAS ? Accession #: ? [id number] : ? 1990 (Age: 24) ??F ?Collect Date: ? 09/17/2014 Location: ? [facility] ? Receive Date: ? 09/18/2014 Provider: ?DEE DEE SHUKLA PROJECT EXECUTIVE Copy to: ? Specimen/Source: ?Pap Test, Cervix/Endocervix, [...] Report Date: ??09/24/2014 08:02 End of Report [facility] 09/17/2014 09/18/2014 us Dee Dee Shukla PROJECT EXECUTIVE PATHOLOGY ORDERABLES Final R esult [facility] [address] [place] [address] documented in this encounter Visit Diagnoses Not on filedocumented in this encounter Care Teams Institutional Asset Manager Relationship Specialty Start Date End Date None, Provider PCP - General 09/08/13 Tatum Lugo MD [address] [place] [phone] 09/08/13 documented as of this encounter
--- OUTSIDE RECORDS SUMMARY | 2024-03-15 15:32 | XMS_ITS | Encounter Summary ---
Author Organization [facility] [place] [address] Care Team Providers Care Twisting Frame Operator Name Role Phone None Primary Care Provider Unavailabl e Reason for Visit * Reason Onset Date Comments Thyroid Problem 02/28/2011 Encounter Details Date Type Department Care Team ([facility] st Contact Info) Description 02/28/2011 Telephone [place] [phone] Jona Dickinson MD [address] [place] [address] Thyroid Problem Social History Tobacco Use Types [...] apart - needle sampling simply cannot. [place] [facility] this result is associated with an 18% [...] Info) Description 05/23/2024 Hospital Encounter Birthing [place] [facility] [place] [address] Lexii Ceja MD [facility] OBSTETRICS [place] [address] documented as of this encounter Visit Diagnoses Not on filedocumented in this encounter Care Teams Twisting Frame Operator Relationship Specialty Start Date End Date None None PCP - General 02/23/11 05/09/11 documented as of this encounter
--- OUTSIDE RECORDS SUMMARY | 2024-03-15 15:32 | XMS_ITS | Encounter Summary ---
Author Organization [facility] [place] [place] [address] Care Team Providers Care Clay Products Machine Operator Name Role Phone None Primary Care Provider Unavailabl e Encounter Details Date Type Department Care Team (Late st Contact Info) Description 06/12/2012 Notes Only Obstetrics [place] [address] Marita Anders, [facility] DR OBSTETRICS & [place] [address] Social History Tobacco Use Types Packs/Day Years [...] EST Care Management/Social Work Referral/Contact: Referred by [facility] service for support around substance abuse/mental health. S: I'm a single, unemployed mother. O: Met with patient, Andree (pronounced Sercha), following her US appt. Patient was pleased to have US pictures of her baby, whose gender she does not wish to know. When asked why she thinks she may have been referred to Anesthesiologist Physician, patient identified that she is single and [...] baby. Patient stated her mother works at [employer]. Patient discussed a variety of plans about where she may live. Andree expressed a desire to leave [place], [place], in order to get away from [...] Patient stated that Bryan has been in [facility] since 2010, so there is no chance he is the father. She stated she is getting back together with her fiance (who will be out of [place] in July 2012), and he wants to adopt the baby. Patient asked many questions about paternity affidavit, parental rights, paternity testing, and adoption. Attempted to answer most of these, and also provided information on [employer] in [facility], and encouraged patient to seek advice of people who understand the legal implications of paternity, including machine spring former, court system, and DV support agencies. Explained [...] she has an upcoming appt. with an electronic typesetting machine operator. Patient stated with this worry, plus [...] appeared very familiar with community resources in [facility]. She stated she is involved with [employer] and [employer] already, and has food stamps and WIC. [...] with fiance, who is currently incarcerated in [place]; hx of substance abuse (opiates, cocain e, MJ, ETOH), but reduced use since learning of this (no TIFFANIE done on patient to date); hxof thyroidectomy (? of diagnosis); hx of depression, currently untreated; hx of loss in prior (per record); recent loss of job; concern for homelessness; desire to relocate (givesvarious scenarios, including living with a friend in [place], moving to [place], [place] or other location in [place] (declined list of transitional housing for women), and moving to [place] to livewith aunt and uncle). Strengths include: Some family support; good knowledge of community resources; has accessed food stamps and WIC, and plans to apply for [place] Medicaid as secondary insurance (has application); utilizes food [employer] at [facility] in [facility]; has stopped using opiates, per her [...] Restrictions option for inpatient stay. LEYDI Vicente, RN APPEALS documented in this encounter Plan of Treatment Upcoming Encounters Date Type Department Care Team (Late st Contact Info) Description 05/23/2024 Hospital Encounter Birthing [facility] [place] [address] Lexii Ceja MD [facility] OBSTETRICS [place] [address] documented as of this encounter Visit Diagnoses Not on filedocumented in this encounter Care Teams Clay Products Machine Operator Relationship Specialty Start Date End Date None None PCP - General 05/08/12 04/20/14 documented as of this encounter
--- OUTSIDE RECORDS SUMMARY | 2024-03-15 15:32 | XMS_ITS | Encounter Summary ---
Author Organization [facility] Address [address] [place] [address] Care Team Providers Care Airframe And Power Plant Mechanic Name Role Phone Unknown, Provider MD Primary Care Provider Tatum Will MD Unavailable [phone] Encounter Details Date Type Department Care Team (Late st Contact Info) Description 11/14/2010 Results Only [facility] ([facility] [address] [place], [place] [address] Mitesh Suarez MD [address] [place] [id number] Social History Tobacco Use Types Packs/Day Years [...] unformatted reports. ? Name: ? FRANK GIL ? Accession #: ? [id number] ? : ? 1990 (Age: 20) ??F [...] Gross Description: ? Received in formalin labelled Bimal, Frank and R ear lesion is a 1.1 x 0.6 [...] a tam, slightly lobular cut surface. ??Two cash applications representative sections are submitted as (B). ? Received in formalin labelled Bimal, Frank and L tonsil are two ? pieces of firm tonsil which measure 2.3 x 2.0 x 1.5 cm and 2.2 x 2.1 x 1.5 cm. ?? Both pieces have light tam, multinodular mucosal surfaces and resection margins are black inked. ??Sections reveal a light tam, slightly lobular cut surface. ? Two cash applications representative sections of the specimen are submitted as (C). ? Received in formalin labelled Gil, Frank and adenoids is a 1.8 x ?? 1.3 x 1.3 cm, firm, light tam, focally blood-stained, slightly lobular piece of tissue. ??Two cash applications representative sections of the specimen are submitted as (D). (J. ?? Belle)/[facility] ? End of Report ? [facility] 11/14/2010 11/14/2010 18: 09 EDT us Mitesh Suarez MD PATHOLOGY ORDERABLES Final Resul t [facility] [address] [place] [address] documented in this encounter Visit Diagnoses Not on filedocumented in this encounter Care Teams Airframe And Power Plant Mechanic Relationship Specialty Start Date End Date Unknown, Provider, PCP - General 11/14/10 11/15/10 Tatum Lguo MD [address] [place] [phone] 11/14/10 09/07/13 documented as of this encounter
--- OUTSIDE RECORDS SUMMARY | 2024-03-15 15:32 | XMS_ITS | Encounter Summary ---
Author Organization [facility] [place] [address] Care Team Providers Care Trouble Locator Test Desk Name Role Phone None Primary Care Provider Unavailabl e Reason for Visit * Reason Onset Date Comments Medication Refill 05/23/2012 Encounter Details Date Type Department Care Team (Late st Contact Info) Description 05/23/2012 [place] [phone] Griffin Wallis III, MD [facility] [place] [address] Hypothyroidism (Primary Dx) Social History Tobacco Use [...] Info) Description 05/23/2024 Hospital [place] [phone] Lexii Ceja MD [facility] OBSTETRICS [place] [address] documented as of this encounter Visit Diagnoses Diagnosis Hypothyroidism- Primary Unspecified hypothyroidism documented in this encounter Care Teams Trouble Locator Test Desk Relationship Specialty Start Date End Date None None PCP - General 05/08/12 04/20/14 documented as of this encounter
--- OUTSIDE RECORDS SUMMARY | 2024-03-15 15:32 | XMS_ITS | Encounter Summary ---
Author Organization [facility] Address [address] [place] [address] Care Team Providers Care Head Rose Grower Name Role Phone None, Provider Primary Care Provider Tatum Marcelino MD Unavailable [phone] Reason for Visit * Reason Comments Knee Injury pt tripped over david r and landed on knee - severe pain. Encounter Details Date Type Department Care Team (Late st Contact Info) Description 09/08/2013 19:26 EDT - 09/08/2013 20:51 EDT Emergency [facility] Emergency Department - Main [place] [address] [place] [phone] Lucas Guajardo PA-C [address] [place] [phone] Emergency, MD Francis Knee sprain (Primary Dx) [...] preliminary report dictated by Fady Jose MD, president mortgage company. Procedures ED Course: A medical screening exam [...] diagnoses: Knee sprain PCP: Provider None Antonio Stuart was available for supervision. 09/10/2013 16:59 * [...] above interpretation and agree with the findings. us Lucas Guajardo PA-C [facility] Final Result documented in this encounter Visit Diagnoses Diagnosis Knee sprain- Primary Sprain and strain of unspecified site of knee and leg documented in this encounter Administered Medications Inactive Administered Medications - up to 3 most recent administrations Medication Order MAR Action Action Date Dose Rate Site Ibuprofen 600 mg Tab STARTER PACK 1 Package, oral, NOW X1, 1 dose, On Sun09/08/13 at 2100, STAT Given 09/08/2013 20:46 EDT 1 Package documented in this encounter Historical Medications * This list may reflect changes made after this encounter. levothyroxine (SYNTHROID) 150 mcg tablet Take 175 mcg by mouth daily. added in this encounter Active and Recently Administered Medications Times are shown in EDT. Scheduled Medication Order 09/06/2013 09/07/2013 09/08/2013 Ibuprofen 600 mg Tab STARTER PACK (COMPLETED) 1 Package, oral, NOW X1, 1 dose, On Sun09/08/13 at 2100, STAT 2045 (Given - [facility] er: Nohemi Murray RN) documented in this encounter Care Teams Head Rose Grower Relationship Specialty Start Date End Date None, Provider PCP - General 09/08/13 Tatum Lugo MD [address] [place] [phone] 09/08/13 documented as of this encounter
--- OUTSIDE RECORDS SUMMARY | 2024-03-15 15:32 | XMS_ITS | Encounter Summary ---
Author Organization [facility] Address [address] [place] [address] Care Team Providers Care Dental Resident Name Role Phone None, Provider Primary Care Provider Tatum Marcelino MD Unavailable [phone] Encounter Details Date Type Department Care Team (Late st Contact Info) Description 01/30/[address] [facility] Pathology & Laboratory Medicine - [address] [address] Outr Resulting Lab, Provider Social History Tobacco Use Types Packs/Day Years Used Date Smoking Tobacco: Never Assessed Comments No Sex and Gender Information Value Date Recorded Sex Assigned at Not on file Legal Sex Female 18:41 EST Gender Identity Not on file Sexual Orientation Not on file documented as of this encounter Plan of Treatment Not on file documented as of this encounter Visit Diagnoses Not on filedocumented in this encounter Care Teams Dental Resident Relationship Specialty Start Date End Date None, Provider PCP - General 09/08/13 Tatum Lugo MD [address] [place] [phone] 09/08/13 documented as of this encounter
--- OUTSIDE RECORDS SUMMARY | 2024-03-15 15:32 | XMS_ITS | Encounter Summary ---
Author Organization [facility] [place] [address] Care Team Providers Care Syrup Mixer Helper Name Role Phone None Primary Care Provider Unavailabl e Encounter Details Date Type Department Care Team (Latest Contact Info) Description 03/22/2011 12:09 PM EST - 03/22/2011 7:14 PM EST Hospital Encounter [place] [address] Juan Ko MD [facility] [place] [address] Discharge Disposition: Home Social History Tobacco Use [...] calcium supplementation (tums) Phone number for questions: [phone] before 5 PM weekdays [phone] after 5 PM and on weekends/holidays documented [...] on physical exam. ROS: No H/O asthma, [place], stroke, pulmonary embolus or phlebitis. Comprehensive review [...] agrees to proceed. Will sign in through [facility]. Consent is signed. Send copy to Dr. Villalba. documented in this encounter Miscellaneous Notes * Miscellaneous - Provider, Scanning - 03/22/2011 9:20 PM EST * Op Note - Satinder Duncan MD - 03/22/2011 5:12 PM EST [facility] Operative Note Patient Name: Andree Hummel : [id number] MR#: [id number] Case Date: 03/22/2011 Surgeon: Surgeon(s) and Role: [...] the thyroid gland were obtained using a SonSleepOutaxx and an HFL38/13-6 broadband linear array transducer. [...] Operative Note Patient Name: Andree Hummel : [id number] MR#: [id number] Case Date: 03/22/2011 Surgeon: Surgeon(s) and Role: [...] Info) Description 05/23/2024 Hospital Encounter Birthing [facility] [place] [address] Lexii Ceja MD [facility] DR OBSTETRICS [place] [address] documented as of this encounter Procedures Procedure [...] 5:13 PM EST) Surgical Pathology Report [id number] ? Location: [facility] The signing pathologist has (i) examined the [...] superior to inferior including enlarged parathyroid; (41-44) parts counter representative sections of isthmus; (45-50) serial sections [...] this report. Killian Abel, 03/31/11 10:47 HANNAH SERRANO 03/22/2011 5:13 PM EST Juan Ko MD PATHOLOGY/CYTOLOGY ORDERABLES Performing Organization Address [facility] Co de Phone Number HAULSWETA Launchr * Specimen to Pathology (surgical or derm) (03/22/2011 4:33 PM EST) AP Specimen 03/22/2011 4:33 PM EST 03/22/2011 4:33 PM EST Narrative HANNAH MILLBRINAIUM - 03/22/2011 4:33 PM EST Specimen requisition ordered. ??Separate Pathology report to follow Luis Hester MD PATHOLOGY/CYTOLOGY ORDERABLES Performing Organization Address [facility] Co de Phone Number HANNAH Launchr documented in this encounter Visit Diagnoses Not [...] 171 (Given - Provid er: Bhumika Hurtado RN)1727 [...] Patch documented in this encounter Care Teams Syrup Mixer Helper Relationship Specialty Start Date End Date None None PCP - General 02/23/11 05/09/11 documented as of this encounter
--- OUTSIDE RECORDS SUMMARY | 2024-03-15 15:32 | XMS_ITS | Encounter Summary ---
Author Organization [facility] Address [address] [place] [address] Care Team Providers Care Director Of Respiratory Therapy Name Role Phone None, Provider Primary Care Provider Tatum Marcelino MD Unavailable [phone] Encounter Details Date Type Department Care Team (Late st Contact Info) Description 05/31/2021 Lab Requisition [facility] Pathology & Laboratory Medicine - [address] [id number] Outr Resulting Lab, Provider Social History Tobacco [...] 85 - 499 mg/dL 06/01/2021 9:05 EST [facility] Blood VENOUS BLOOD / Unknown 05/31/2021 10:55 EST 05/31/2021 21:35 EST us Provider Outr Resulting Lab CHEMISTRY & BLOOD GA S ORDERABLES Final Result Performing Organization Address City/[facility]/ZIP Co de Phone Number [facility] [address] [place] [address] * IGG (05/31/2021 10:55 EST) IgG 738 610-1,616 mg/dL 06/01/2021 9:05 EST [facility] Blood VENOUS BLOOD / Unknown 05/31/2021 10:55 EST 05/31/2021 21:35 EST us Provider Outr Resulting Lab CHEMISTRY & BLOOD GA S ORDERABLES Final Result Performing Organization Address [facility] Co de Phone Number [facility] [address] [place] [address] documented in this encounter Visit Diagnoses Not on filedocumented in this encounter Care Teams Director Of Respiratory Therapy Relationship Specialty Start Date End Date None, Provider PCP - General 09/08/13 Tatum Lugo MD [address] [place] [phone] 09/08/13 documented as of this encounter
--- OUTSIDE RECORDS SUMMARY | 2024-03-15 15:32 | XMS_ITS | Encounter Summary ---
Author Organization [facility] [place] [address] Care Team Providers Care Electronic Security Technician Name Role Phone None Primary Care Provider Unavailabl e Reason for Visit * Reason Comments Thyroid Nodule Encounter Details Date Type Department Care Team ([facility] st Contact Info) Description 03/15/2011 11:10 AM EST Office [place] [phone] Jona Dickinson MD [address] [place] [address] Thyroid nodule (Primary Dx) Discharge Disposition: Home [...] of the neck were obtained using a [employer]ax[employer] and an HFL38/13-6 broadband linear array transducer. [...] Info) Description 05/23/2024 Hospital [place] [address] Lexii Ceja MD [facility] [address] OB[place] [address] documented as of this encounter Visit Diagnoses Diagnosis Thyroid nodule- Primary Nontoxic uninodular goiter documented in this encounter Care Teams Electronic Security Technician Relationship Specialty Start Date End Date None None PCP - General 02/23/11 05/09/11 documented as of this encounter
--- OUTSIDE RECORDS SUMMARY | 2024-03-15 15:32 | XMS_ITS | Encounter Summary ---
Author Organization [facility] Address [facility] [place] [address] Care Team Providers Care Rn Navigator Name Role Phone None Primary Care Provider Unavailabl e Encounter Details Date Type Department Care Team (Latest Contact Info) Description 05/08/2012 10:30 AM EST Office [place] [address] Griffin Wallis III, MD [facility] [place] [address] Hypothyroidism (Primary Dx) Discharge Disposition: Home Social [...] 1.35 with (-) TSI (done at [facility]). She has no symptoms of hypothyroidism now. [...] standing order for monthly TSH levels at [facility], with results to be FAXed to me at [phone]. Lastly, she wanted mt to be sure that Dr. Maite Marks is aware that the local Maternity Floor Supervisor requeststhat her care be transferred to Dr. Marks. More than 32 of this 60 minute visit was spent in face to face counseling and discussing the implications of the diagnosis and potential therapeutic approaches as detailed above. documented in this encounter Plan of Treatment Upcoming Encounters Date Type Department Care Team (Late st Contact Info) Description 05/23/2024 [place] [address] Lexii Ceja MD [facility] OBSTETRICS [place] [address] documented as of this encounter Visit Diagnoses Diagnosis Hypothyroidism- Primary Unspecified hypothyroidism documented in this encounter Care Teams Rn Navigator Relationship Specialty Start Date End Date None None PCP - General 05/08/12 04/20/14 documented as of this encounter
--- OUTSIDE RECORDS SUMMARY | 2024-03-15 15:32 | XMS_ITS | Encounter Summary ---
Author Organization [facility] [place] [address] Care Team Providers Care Coding Compliance Specialist Name Role Phone Mya Varghese MD Primary Care Provider [phone] Reason for Visit * Reason Comments Follow Up Surgery Encounter Details Date Type Department Care Team (Late st Contact Info) Description 05/10/2011 11:30 AM EST Office [place] [phone] Marlo Ko MD [facility] [place] [address] Follicular adenoma of thyroid gland; Hypothyroidism, postsurgical [...] Contact Info) Description 05/23/2024 Hospital [place] [address] Lexii Ceja MD [facility] OBSTETRICS [place] [address] documented as of this encounter Procedures Procedure Name Priority Date/Time Associated Diagnosis Comments TSH Routine 05/10/2011 8:03 AM EST Follicular adenoma of thyroid gland T4 TOTAL Routine 05/10/2011 8:03 AM EST Follicular adenoma of thyroid gland documented in this encounter Results * (ABNORMAL) TSH (05/10/2011 8:03 AM EST) Thyroid Stimulating Hormone 111.10(H) 0.27 - 4.20 mcIU/mL CERNER [employer] TechnologyENNIUM Blood specimen (specimen) 05/10/2011 8:03 AM EST 05/10/2011 8:10 AM EST Marlo Ko MD CHEMISTRY ORDERABL ES Performing Organization Address City/[facility] Co de Phone Number [place] * (ABNORMAL) T4 (05/10/2011 8:03 AM EST) T4 Total 4.0(L) 5.1 - 10.8 mcg/dL CERNER MILLENNIUM Comment: Reference Range: [place] Cord Blood: ??6.9-14.4 mcg/dL Females: ??7.2-14.2 mcg/dL Pediatric ranges: ??Interpret with caution-ranges have not been verified Blood specimen (specimen) 05/10/2011 8:03 AM EST 05/10/2011 8:10 AM EST Marlo Ko MD CHEMISTRY ORDERABL ES Performing Organization Address City/[facility] Co de Phone Number [place] documented in this encounter Visit Diagnoses Diagnosis Follicular adenoma of thyroid gland Benign neoplasm of thyroid glands Hypothyroidism, postsurgical Postsurgical hypothyroidism documented in this encounter Care Teams Coding Compliance Specialist Relationship Specialty Start Date End Date Mya Varghese MD [address] [place] [address] PCP - General 05/10/11 05/07/12 documented as of this encounter
--- OUTSIDE RECORDS SUMMARY | 2024-03-15 15:32 | XMS_ITS | Encounter Summary ---
Author Organization [facility] Address [facility] [place] [address] Care Team Providers Care Heel Dipper Name Role Phone None Primary Care Provider Unavailabl e Reason for Referral * Surgical (Routine) - Closed Specialty Diagnoses / Procedures Referred By Lamont riggins Referred To Contact General Surgery Diagnoses Thyroid nodule Jona Dickinson MD [address] [place] [address] Marlo Ko MD [facility] [place] [address] Referral ID Status Reason Start Date Expiration Date V isits Requested Visits Authorized [id number] Closed Specialty Service Requested 03/03/2011 08/30/2011 1 1 Reason for Visit * Reason Onset Date Comments Other 03/03/2011 ? when surgery i s scheduled Encounter Details Date Type Department Care Team (Late st Contact Info) Description 03/03/2011 Telephone [place] [address] Jona Dickinson MD [address] [place] [address] Other (? when surgery is scheduled) Social [...] Contact Info) Description 05/23/2024 Hospital [place] [address] Lexii Ceja MD [facility] OBSTETRICS [place] [address] Scheduled Referrals Name Type Priority Associated Diagnoses Orde r Schedule REFERRAL TO GENERAL SURGERY Outpatient Referral Routine Thyroid nodule Ordered: 03/03/2011 documented as of this encounter Visit Diagnoses Diagnosis Thyroid nodule- Primary Nontoxic uninodular goiter documented in this encounter Care Teams Heel Dipper Relationship Specialty Start Date End Date None None PCP - General 02/23/11 05/09/11 documented as of this encounter
--- OUTSIDE RECORDS SUMMARY | 2024-03-15 15:32 | XMS_ITS | Encounter Summary ---
Author Organization [facility] Address [address] [place] [address] Care Team Providers Care Bridge Manager Name Role Phone None, Provider Primary Care Provider Tatum Marcelino MD Unavailable [phone] Encounter Details Date Type Department Care Team (Late st Contact Info) Description 05/21/2017 Results Only [facility] [phone] Russell Warner, [facility]-[address] [address] Social History Tobacco Use Types Packs/Day Years [...] ? ANDREE ROJAS ? Accession #: ? [id number] : ? 1990 (Age: 26) ??F ?Collect Date: ? 05/21/2017 Location: ? [facility] ? Receive Date: ? 05/23/2017 Provider: ?RUSSELL VIVEROS SWAGE TOOLSETTER-BC Copy to: ? Specimen/Source: ?Pap Test, Cervix, [...] Report Date: ??05/29/2017 10:03 End of Report [facility] 05/21/2017 05/23/2017 us Russell Warner SWAGE TOOLSETTER-BC PATHOLOGY ORDERABLES Fin al Result [facility] [address] [place] [address] documented in this encounter Visit Diagnoses Not on filedocumented in this encounter Care Teams Bridge Manager Relationship Specialty Start Date End Date None, Provider PCP - General 09/08/13 Tatum Lugo MD [address] [place] [phone] 09/08/13 documented as of this encounter
--- OUTSIDE RECORDS SUMMARY | 2024-03-15 15:32 | XMS_ITS | Encounter Summary ---
Author Organization [facility] [place] [address] Care Team Providers Care Assembly Line Robot Operator Name Role Phone None Primary Care Provider Unavailabl e Encounter Details Date Type Department Care Team (Late st Contact Info) Description 05/28/2012 External Results [place] [phone] Provider, Scanning Social History Tobacco Use Types [...] Info) Description 05/23/2024 Hospital [place] [address] Lexii Ceja MD [facility] DR [place] [address] documented as of this encounter Procedures Procedure Name Priority Date/Time Associated Diagnosis Comments LAB SCAN Routine 05/21/2012 documented in this encounter Results * Scan Doc: Lab (05/21/2012) Scanning Provider MEDIA MGR SCAN EXT O RDR/RSLT documented in this encounter Visit Diagnoses Not on filedocumented in this encounter Care Teams Assembly Line Robot Operator Relationship Specialty Start Date End Date None None PCP - General 05/08/12 04/20/14 documented as of this encounter
--- OUTSIDE RECORDS SUMMARY | 2024-03-15 15:32 | XMS_ITS | Encounter Summary ---
Author Organization [facility] Address [address] [place] [address] Care Team Providers Care Dish Network Installer Name Role Phone Tatum Lugo MD Primary Care Provider [phone] Tatum Lugo MD Unavailable [phone] Encounter Details Date Type Department Care Team (Late st Contact Info) Description 10/31/[address] [facility] - [facility] ([facility] [address] [place] [phone] Stephanie Chavez MD [address] [place] [address] Social History Tobacco Use Types Packs/Day [...] ? ANDREE ROJAS ? Accession #: ? [id number] : ? 1990 (Age: 22) ??F ?Collect [...] Date: ??11/07/2012 11:34 End of Report [facility] 10/31/2012 11/01/2012 us Stephanie Chavez MD PATHOLOGY ORDERABLES Final Res ult [facility] [address] [place] [address] documented in this encounter Visit Diagnoses Not on filedocumented in this encounter Care Teams Dish Network Installer Relationship Specialty Start Date End Date Tatum Lugo MD [address] [place] [phone] PCP - General 11/16/10 09/07/13 Tatum Lugo MD [address] [place] [phone] 11/14/10 09/07/13 documented as of this encounter
--- OUTSIDE RECORDS SUMMARY | 2024-03-15 15:32 | XMS_ITS | Encounter Summary ---
Author Organization [facility] [place] [address] Care Team Providers Care Scrum Product Owner Name Role Phone None Primary Care Provider Unavailabl e Reason for Visit * Reason Comments Other Thyroid Nodule Encounter Details Date Type Department Care Team (Late st Contact Info) Description 03/08/2011 10:30 AM EST Office [place] [phone] Marlo Ko MD [facility] [place] [address] Thyroid nodule (Primary Dx) Discharge Disposition: Home [...] on physical exam. ROS: No H/O asthma, [place], stroke, pulmonary embolus or phlebitis. Comprehensive review [...] Contact Info) Description 05/23/2024 [place] [address] Lexii Ceja MD [facility] DR OBSTETRICS [place] [address] documented as of this encounter Procedures Procedure Name Priority Date/Time Associated Diagnosis Comments THYROIDECTOMY,FOR MALIGNANCY, LIMITED NECK DISSECTION Routine 03/08/2011 11:10 AM EST documented in this encounter Visit Diagnoses Diagnosis Thyroid nodule- Primary Nontoxic uninodular goiter documented in this encounter Care Teams Scrum Product Owner Relationship Specialty Start Date End Date None None PCP - General 02/23/11 05/09/11 documented as of this encounter
--- OUTSIDE RECORDS SUMMARY | 2024-03-15 15:32 | XMS_ITS | Encounter Summary ---
Author Organization [facility] [place] [address] Care Team Providers Care Foam Tank Laminator Name Role Phone None Primary Care Provider Unavailabl e Reason for Visit * Reason Comments Routine Visit Encounter Details Date Type Department Care Team (Latest Contact Info) Description 07/04/2012 4:15 PM EDT Routine Obstetrics [place] [address] Walt Bay MD [facility] [address] OBST[place] [address] GA: [id number] Discharge Disposition: Home Social History [...] Reviewed causes of diastasis; recommendations. GTT at [facility]; slip given. RTC 2 weeks for cervical length. If normal length, no further surveillance. documented in this encounter Plan of Treatment Upcoming Encounters Date Type Department Care Team (Late st Contact Info) Description 05/23/2024 Hospital [place] [address] Lexii Ceja MD [facility] [address] OBST[place] [address] documented as of this encounter Visit Diagnoses Diagnosis Migraine- Primary Migraine, unspecified, without mention of intractable migraine without mention of status migrainosus , supervision of, high-risk Unspecified high-risk documented in this encounter Care Teams Foam Tank Laminator Relationship Specialty Start Date End Date None None PCP - General 05/08/12 04/20/14 documented as of this encounter
--- OUTSIDE RECORDS SUMMARY | 2024-03-15 15:32 | XMS_ITS | Encounter Summary ---
Author Organization [facility] Address [facility] [place] [address] Care Team Providers Care Pharmacy Billing Adjudicator Name Role Phone None Primary Care Provider Unavailabl e Encounter Details Date Type Department Care Team (Late st Contact Info) Description 04/05/2011 Orders [place] [phone] Marlo Ko MD [facility] [place] [address] Social History Tobacco Use Types Packs/Day Years [...] Info) Description 05/23/2024 Hospital [place] [phone] Lexii Ceja MD [facility] OBST[place] [address] documented as of this encounter Visit Diagnoses Not on filedocumented in this encounter Care Teams Pharmacy Billing Adjudicator Relationship Specialty Start Date End Date None None PCP - General 02/23/11 05/09/11 documented as of this encounter
--- OUTSIDE RECORDS SUMMARY | 2024-03-15 15:32 | XMS_ITS | Encounter Summary ---
Author Organization [facility] [place] [address] Care Team Providers Care Forging Press Setter Up Name Role Phone None Primary Care Provider Unavailabl e Encounter Details Date Type Department Care Team (Late st Contact Info) Description 03/22/2011 2:28 PM EST - 03/22/2011 4:56 PM EST Surgery [place] [address] Juan Ko MD [facility] [place] [address] THYROIDECTOMY, FOR MALIGNANCY, LIMITED NECK DISSECTION (WRVU [...] calcium supplementation (tums) Phone number for questions: [phone] before 5 PM weekdays [phone] after 5 PM and on weekends/holidays documented [...] the thyroid gland were obtained using a SonoSiUb[employer] Networksaxx and an HFL38/13-6 broadband linear array transducer. [...] on physical exam. ROS: No H/O asthma, [place], stroke, pulmonary embolus or phlebitis. Comprehensive review [...] agrees to proceed. Will sign in through [facility]. Consent is signed. Send copy to Dr. Villalba. documented in this encounter Miscellaneous Notes * Miscellaneous - Provider, Scanning - 03/22/2011 9:20 PM EST * Op Note - Satinder Duncan MD - 03/22/2011 5:12 PM EST [facility] Operative Note Patient Name: Andree Hummel : [id number] MR#: [id number] Case Date: 03/22/2011 Surgeon: Surgeon(s) and Role: [...] Operative Note Patient Name: Andree Hummel : [id number] MR#: [id number] Case Date: 03/22/2011 Surgeon: Surgeon(s) and Role: [...] Info) Description 05/23/2024 Hospital Encounter Birthing [place] [facility] [place] [place] [address] Lexii Ceja MD [facility] DR OBSTETRICS [place] [address] documented as of this encounter Procedures Procedure [...] 5:13 PM EST) Surgical Pathology Report [id number] ? Location: [facility] The signing pathologist has (i) examined [...] superior to inferior including enlarged parathyroid; (41-44) national sales representative sections of isthmus; (45-50) serial [...] Ko MD PATHOLOGY/CYTOLOGY ORDERABLES Performing Organization Address [facility] Co de Phone Number [employer] * Specimen to Pathology (surgical or derm) (03/22/2011 4:33 PM EST) AP Specimen 03/22/2011 4:33 PM EST 03/22/2011 4:33 PM EST Narrative CERNER MILLBRINAIUM - 03/22/2011 4:33 PM EST Specimen requisition ordered. ??Separate Pathology report to follow Luis Hester MD PATHOLOGY/CYTOLOGY ORDERABLES Performing Organization Address [facility] Co de Phone Number [employer]AN[employer] documented in this encounter Visit Diagnoses Not [...] Patch documented in this encounter Care Teams Forging Press Setter Up Relationship Specialty Start Date End Date None None PCP - General 02/23/11 05/09/11 documented as of this encounter
--- OUTSIDE RECORDS SUMMARY | 2024-03-15 15:32 | XMS_ITS | Encounter Summary ---
Author Organization [facility] Address [facility] [place] [address] Care Team Providers Care Line Manager Name Role Phone None Primary Care Provider Unavailabl e Encounter Details Date Type Department Care Team (Late st Contact Info) Description 04/03/2011 Orders [place] [phone] Marlo Ko MD [facility] [place] [address] Follicular adenoma of thyroid gland (Primary Dx) [...] Contact Info) Description 05/23/2024 Hospital [place] [phone] Lexii Ceja MD [facility] OBSTETRICS AND GYNECOLOGY [place], [place] [phone] documented as of this encounter Results * (ABNORMAL) TSH (05/10/2011 8:03 AM EST) Thyroid Stimulating Hormone 111.10(H) 0.27 - 4.20 mcIU/mL [facility] Blood specimen (specimen) 05/10/2011 8:03 AM EST 05/10/2011 8:10 AM EST Marlo Ko MD CHEMISTRY ORDERABL ES Performing Organization Address [facility] Co de Phone Number [facility] * (ABNORMAL) T4 (05/10/2011 8:03 AM EST) T4 Total 4.0(L) 5.1 - 10.8 mcg/dL [facility] Comment: Reference Range: [place] Cord Blood: ??6.9-14.4 mcg/dL Females: ??7.2-14.2 mcg/dL Pediatric ranges: ??Interpret with caution-ranges have not been verified Blood specimen (specimen) 05/10/2011 8:03 AM EST 05/10/2011 8:10 AM EST Marlo Ko MD CHEMISTRY ORDERABL ES Performing Organization Address [facility] Co de Phone Number [facility] documented in this encounter Visit Diagnoses Diagnosis Follicular adenoma of thyroid gland- Primary Benign neoplasm of thyroid glands documented in this encounter Care Teams Line Manager Relationship Specialty Start Date End Date None None PCP - General 02/23/11 05/09/11 documented as of this encounter
--- OUTSIDE RECORDS SUMMARY | 2024-03-15 15:32 | XMS_ITS | Clinical Summary ---
Author Organization [facility] Address [address] [place] [address] Care Team Providers Care Ticket Printer And Tagger Name Role Phone None, Provider Primary Care Provider Tatum Marcelino MD Unavailable [phone] Allergies Active Allergy Reactions Criticality Noted [...] Hepatitis C Screen 1990 Social Determinants Of Health (SDOH) 1991 Depression Screening 2003 HIV Screening 2007 Advance Directive 06/15/2009 Preventive Care Visit 06/15/2009 Hepatitis B Vaccine (1 of 3 - 19+ 3-dose series) 06/15/2010 Pertussis (Adult) Immunization 06/15/2010 Tetanus (Adult) Immunization 06/15/2010 Pap Smear (Cervical Cancer Screening) 05/21/2020 05/21/2017, 09/17/2014, 10/31/2012 Cervical Cancer Screening 06/15/2021 HPV/Cotest (Cervical Cancer Screening) 06/15/2021 COVID-19 Vaccine ( season) 2023 Influenza Immunization (Adult) (#1) 2024 RETIRED Cervical Cancer Screening Discontinued 05/21/2017, 09/17/2014, 10/31/2012 HPV Vaccines Aged Out No longer eligi [...] when reading/interpreti ng unformatted reports. Name: ? HENOKISMAEL ANDREE ? Accession #: ? [id number] : ? 1990 (Age: 26) ??F ?Collect Date: ? 05/21/2017 Location: ? [facility] ? Receive Date: ? 05/23/2017 Provider: ?RUSSELL VIVEROS [facility]- Copy to: ? Specimen/Source: ?Pap Test, [...] Report Date: ??05/29/2017 10:03 End of Report [facility] 05/21/2017 05/23/2017 us Russell Warner VARNISH BLENDER- PATHOLOGY ORDERABLES Fin al Result [facility] [address] [place] [address] from Last 3 Months or Most Recently Relevant to Health Maintenance Care Teams Ticket Printer And Tagger Relationship Specialty Start Date End Date None, Provider PCP - General 09/08/13 Tatum Lugo MD [address] [place] [phone] 09/08/13
--- OUTSIDE RECORDS SUMMARY | 2024-03-15 15:32 | XMS_ITS | Encounter Summary ---
Author Organization [facility] Address [address] [place] [address] Care Team Providers Care Weaving Supervisor Name Role Phone Tatum Arevalo MD Primary Care Provider [phone] Encounter Details Date Type Department Care Team (Late st Contact Info) Description 05/14/2007 Results Only [facility] - [address] [phone] Harsha Kingston MD [address] [place] [phone] Social History Tobacco Use Types Packs/Day Years [...] ? ANDREE ROJAS ? Accession #: ? [id number] ? : ? 1990 (Age: 16) ??F [...] been discussed with the clinician Dr. Harsha Gnozalez. Immunohistochemical staining was performed on this case to further characterize the lesion. ??Positive and negative controls stained appropriately. ??(Dr. Nam)/ljn Block ?Antibody (Clone) ? Result ? C,D ?H Pylori (polyclonal, [facility]) ? Negative ? E ?S-100 protein DAB (4C4.9, [facility]) ? Non-contributory ? E ?Synaptophysin (Snp88, Biogenex) ? Non-contributory Rice Field Worker sections from the stomach and duodenum were [...] reagents' ??performance characteristics have been determined by [facility]. ??This laboratory is certified under the Clinical [...] cm. ??Submitted in toto as (K). ??(Jadon Cheney)/[facility] [place] End of Report [facility] 05/14/2007 05/14/2007 12: 18 EST us Harsha Kingston MD PATHOLOGY ORDERABLES Final Result Performing Organization Address City/State/[facility] Co de Phone Number [facility] [address] [place] [address] documented in this encounter Visit Diagnoses Not on filedocumented in this encounter Care Teams Weaving Supervisor Relationship Specialty Start Date End Date Tatum Arevalo MD [address] [place] [phone] PCP - General 08/06/08 11/13/10 documented as of this encounter
--- OUTSIDE RECORDS SUMMARY | 2024-03-15 15:32 | XMS_ITS | Encounter Summary ---
Author Organization [facility] [place] [address] Care Team Providers Care Intermediate Project Manager Name Role Phone None Primary Care Provider Unavailabl e Reason for Visit * Reason Onset Date Comments Results 06/04/2012 Encounter Details Date Type Department Care Team (Late st Contact Info) Description 06/04/2012 Telephone Endocrinology at [facility] [place] [phone] Omayra Meredith LPN Results Social History Tobacco [...] Rx is needed Rx to go to [facility] +++++++++++++++++++ Well, let's add 50 mcg each day (to total dose of 300 mcg/day. Arie Hooper Called patient at which time above message [...] Rx is needed Rx to go to [facility] documented in this encounter Plan of Treatment Upcoming Encounters Date Type Department Care Team (Late st Contact Info) Description 05/23/2024 Hospital [place] [address] Lexii Ceja MD [facility] OBSTETRICS [place] [address] documented as of this encounter Visit Diagnoses Not on filedocumented in this encounter Care Teams Intermediate Project Manager Relationship Specialty Start Date End Date None None PCP - General 05/08/12 04/20/14 documented as of this encounter
--- OUTSIDE RECORDS SUMMARY | 2024-03-15 15:32 | XMS_ITS | Encounter Summary ---
Author Organization [facility] Address [address] [place] [address] Care Team Providers Care Director Of Staff Development Name Role Phone None, Provider Primary Care Provider Tatum Marcelino MD Unavailable [phone] Encounter Details Date Type Department Care Team ([facility] st Contact Info) Description 10/09/2013 Results Only [facility] [place] [phone] Jose Enrique Pacheco MD [address] [place] [phone] Social History Tobacco Use Types Packs/Day Years [...] Chlamydia Result CHLAMYDIA TRACHOMATIS DNA detected by passenger elevator operator mediated amplification.(A ) [facility] GC Result No Neisseria gonorrhoeae DNA detected by passenger elevator operator mediated amplification. [facility] 10/09/2013 12:4 5 EDT 10/09/2013 15:02 EDT Jose Enrique Pacheco MD MICROBIOLOGY - GENERAL ORDERA BLES Final Result Performing Organization Address [facility] Co de Phone Number [facility] [address] [place] [address] * VAGINITIS EXAM (10/09/2013 12:45 EDT) Specimen Description Vagina [facility] Gram Smear Result No yeast seen. [facility] Gram Smear Result Smear consistent with BACTERIAL VAGINOSIS. [facility] Result No Trichomonas antigen detected. [facility] Report Status 10/09/2013 Final [facility] VAGINAL STRUCTURE / Unknown 10/09/2013 12:45 EDT 10/09/2013 15:02 EDT Jose Enrique Pacheco MD MICROBIOLOGY - GENERAL ORDERA BLES Final Result Performing Organization Address [facility] Co de Phone Number [facility] [address] [place] [address] documented in this encounter Visit Diagnoses Not on filedocumented in this encounter Care Teams Director Of Staff Development Relationship Specialty Start Date End Date None, Provider PCP - General 09/08/13 Tatum Lugo MD [address] [place] [phone] 09/08/13 documented as of this encounter
--- OUTSIDE RECORDS SUMMARY | 2024-03-15 15:32 | XMS_ITS | Encounter Summary ---
Author Organization [facility] Address [address] [place] [address] Care Team Providers Care Pet Care Assistant Name Role Phone None, Provider Primary Care Provider Tatum Marcelino MD Unavailable [phone] Encounter Details Date Type Department Care Team (Late st Contact Info) Description 01/30/2020 Lab Requisition [facility] Pathology & Laboratory Medicine - [address] [phone] Outr Resulting Lab, Provider Social History Tobacco [...] Unknown 01/30/2020 9:58 EDT 01/30/2020 15:44 EDT us Provider Outr Resulting Lab MICROBIOLOGY - GENER AL ORDERABLES Final Result [facility] [address] [place] [address] * COVID-19 TESTING (01/30/2020 9:58 EDT) COVID-19 rt-PCR Result Negative Negative 01/31/2020 1:45 EDT [facility] Comment: This test has [...] history, and epidemiological information. Performed on the [employer] Fusion instrument Performing Lab [facility] 01/31/2020 1:45 EDT [facility] Swab 01/30/2020 9:58 EDT 01/30/2020 15:44 EDT us Provider Outr Resulting Lab MICROBIOLOGY - GENER AL ORDERABLES Final Result [facility] [address] [place] [address] documented in this encounter Visit Diagnoses Not on filedocumented in this encounter Care Teams Pet Care Assistant Relationship Specialty Start Date End Date None, Provider PCP - General 09/08/13 Tatum Lugo MD [address] [place] [phone] 09/08/13 documented as of this encounter
--- OUTSIDE RECORDS SUMMARY | 2024-03-15 15:32 | XMS_ITS | Encounter Summary ---
Author Organization [facility] Address [facility] [place] [address] Care Team Providers Care Ice Skater Name Role Phone None Primary Care Provider Unavailabl e Encounter Details Date Type Department Care Team (Latest Contact Info) Description 03/29/2011 - 03/29/2011 11:59 PM EST Hospital Encounter Radiology Library at [facility] [place] [address] Kedar Santos MD [facility] [place] [address] Discharge Disposition: Home Social History Tobacco Use [...] Encounter Birthing [facility] [place] [phone] Lexii Ceja MD [facility] DR OBSTETRICS [place] [address] documented as of this encounter Procedures Procedure [...] Santos MD IMG FILM LIBRARY ORD ERABLES [place], [place] documented in this encounter Visit Diagnoses Not on filedocumented in this encounter Care Teams Ice Skater Relationship Specialty Start Date End Date None None PCP - General 02/23/11 05/09/11 documented as of this encounter
--- OUTSIDE RECORDS SUMMARY | 2024-03-15 15:32 | XMS_ITS | Encounter Summary ---
Author Organization [facility] [place] [address] Care Team Providers Care Mandolin Repairer Name Role Phone None Primary Care Provider Unavailabl e Encounter Details Date Type Department Care Team (Late st Contact Info) Description 03/22/2011 2:03 PM EST Anesthesia Event [place] [address] Anatoly Ibarra MD [address] [facility] [place] [address] [address] [facility] [place] [address] Anesthesia Record Procedure Summary Procedure Name Responsible [...] Kerry Castro RN 03/22/11 1904 by Radha Hutrado RN documented in this encounter Social History [...] and consented by patient. Plan discussed with PLASTIC TOOL MAKER. documented in this encounter Plan of Treatment Upcoming Encounters Date Type Department Care Team (Late st Contact Info) Description 05/23/2024 Hospital En[place] [address] Lexii Ceja MD [facility] DR OBSTET[place]ICS [place] [address] documented as of this encounter Visit Diagnoses Not on filedocumented in this encounter Care Teams Mandolin Repairer Relationship Specialty Start Date End Date None None PCP - General 02/23/11 05/09/11 documented as of this encounter
--- OUTSIDE RECORDS SUMMARY | 2024-03-15 15:32 | XMS_ITS | Encounter Summary ---
Author Organization [facility] Address [address] [place] [address] Care Team Providers Care Object Oriented Programmer Name Role Phone Tatum Lugo MD Primary Care Provider [phone] Encounter Details Date Type Department Care Team (Late st Contact Info) Description 04/29/2007 Results Only [facility] Developmental [facility] - [address] [phone] Harsha Kingston MD [address] [place] [phone] Social History Tobacco Use Types Packs/Day Years [...] Unit: U Performed or Referred by: [facility] [place] D[facility] of Lab Med and Path, [address] ?? , [place] [address], Lab Dir: MD [facility] 04/29/2007 10:2 3 EST 04/29/2007 10:25 EST Harsha Kingston MD IMMUNOLOGY AND SEROLO GY ORDERABLES Final Result Performing Organization Address City/[facility] Co de Phone Number [facility] [address] [place] [address] * TSH (04/29/2007 10:23 EST) Pathologist [facility] TSH 1.97 0.35 - 5.00 uIU/mL [facility] 04/29/2007 10:2 3 EST 04/29/2007 10:25 EST Harsha Kingston MD CHEMISTRY & BLOOD GAS ORDERABLES Final Result Performing Organization Address [facility] Co de Phone Number [facility] [address] [place] [address] * (ABNORMAL) SED. RATE:WESTERGREN (04/29/2007 10:23 EST) Pathologist [facility] Sed. Rate Westergren 34(H) 0 - 20 mm/hr [facility] 04/29/2007 10:2 3 EST 04/29/2007 10:25 EST Harsha Kingston MD HEMATOLOGY & PF4 ORDE RABLES Final Result [facility] [address] [place] [address] * IGA (04/29/2007 10:23 EST) IgA 66 45 - 237 mg/dl [facility] 04/29/2007 10:2 3 EST 04/29/2007 10:25 EST Harsha Kingston MD CHEMISTRY & BLOOD GAS ORDERABLES Final Result Performing Organization Address City/[facility]/ZIP Co de Phone Number [facility] [address] [place] [address] * T4 FREE (04/29/2007 10:23 EST) Pathologist [facility] Free T4 1.2 0.8 - 1.5 ng/dL [facility] 04/29/2007 10:2 3 EST 04/29/2007 10:25 EST Harsha Kingston MD CHEMISTRY & BLOOD GAS ORDERABLES Final Result Performing Organization Address [facility] de Phone Number [facility] [address] [place] [address] * (ABNORMAL) COMPREHENSIVE METABOLIC PANEL (04/29/2007 10:23 EST) Pathologist [facility] Potassium 4.9 3.6 - 5.2 mEq/L [facility] Sodium 139 136 - 145 mEq/L [facility] Chloride 106 96 - 110 mEq/L [facility] CO2 27 24 - 32 mEq/L [facility] Total Alkaline Phosphatase 99 70 - 230 U/L [facility] Bilirubin, Total <0.5 0.0 - 1.4 mg/dl [facility] AST 17 16 - 38 U/L [facility] ALT 23 5 - 30 U/L [facility] Albumin 4.1 3.0 - 5.5 g/dl [facility] Total Protein 7.4 6.3 - 8.6 g/dl [facility] Creatinine 0.70 0.6 - 1.2 mg/dl [facility] GFR, Calculated Age <18 ml/min/1.7 3m2 [facility] BUN 6(L) 8 - 21 mg/dl [facility] Calcium 9.5 8.5 - 10.5 mg/dl [facility] Calculated Calcium 9.8 8.5 - 10.5 mg/dl [facility] Glucose, Serum 84 70 - 100 mg/dl [facility] Fasting? No [facility] 04/29/2007 10:2 3 EST 04/29/2007 10:25 EST Harsha Kingston MD CHEMISTRY & BLOOD GAS ORDERABLES Final Result [facility] [address] [place] [address] * (ABNORMAL) HEMAGRAM AND DIFFERENTIAL (04/29/2007 10:23 [...] [facility] % Neutrophils 78.3 % [facility] % Lymphocytes 12.8 % [...] [facility] Type of Diff: Automated [facility] 04/29/2007 10:2 3 EST 04/29/2007 10:25 EST Harsha Kingston MD PACKAGES & DNA PROBE ORDERABLES Final Result Performing Organization Address [facility] de Phone Number [facility] [address] [place] [address] * HEMOGLOBIN A1C (04/29/2007 10:23 EST) Hemoglobin A1C 5.0 % [facility] Comment: Shortened red blood cell survival will decrease Hemoglobin A1C values. Reference Range: <6% Normal Range <7% Recommended goal by ADA guidelines 7-8% Suboptimal by ADA guidelines >8% Further action suggested by ADA guidelines 04/29/2007 10:2 3 EST 04/29/2007 10:25 EST Harsha Kingston MD CHEMISTRY & BLOOD GAS ORDERABLES Final Result Performing Organization Address [facility] de Phone Number [facility] [address] [place] [address] documented in this encounter Visit Diagnoses Not on filedocumented in this encounter Care Teams Object Oriented Programmer Relationship Specialty Start Date End Date Tatum Lugo MD [address] [place] [phone] PCP - General 08/06/08 11/13/10 documented as of this encounter
--- OUTSIDE RECORDS SUMMARY | 2024-03-15 15:32 | XMS_ITS | Encounter Summary ---
Author Organization [facility] [place] [address] Care Team Providers Care Audit Spec Name Role Phone None Primary Care Provider Unavailabl e Reason for Visit * Reason Comments Routine Visit Encounter Details Date Type Department Care Team (Latest Contact Info) Description 06/21/2012 1:00 PM EST Routine Obstetrics [place] [address] Maite Marks MD [facility] DR OBSTETRICS [place] [address] GA: 19w3d Discharge Disposition: Home Social History [...] Contact Info) Description 05/23/2024 Hospital [place] [address] Lexii Ceja MD [facility] DR OBSTETRICS [place] [address] documented as of this encounter Procedures Procedure [...] Urine Dipstick Clear Clear [facility] Specific Wisner Urine Automated 1.010 1.002 - 1.030 [facility] Color, Urine Dipstick Yellow Yellow [facility] RBC, Urine Not Present 0 - 4 [facility] WBC, Urine 1 0 - 5 /HPF [facility] Bacteria, Urine Moderate CERN ER MILLENNIUM Squamous Epithelial Cells, Urine 4 <=4 /HPF [facility] Transitional Epithelial Cells, Urine 1 <=1 /HPF [facility] Urine specimen (specimen) URINE SPECIMEN OBTAINED BY CLEAN CATCH PROCEDURE / Unknown 06/21/2012 2:00 PM EST 06/21/2012 2:00 PM EST Narrative Resulting Agency Comment Spec In Lab Maite Marks MD URINE ORDERABLES [facility] documented in this encounter Visit Diagnoses Diagnosis High-risk supervision- Primary Unspecified high-risk documented in this encounter Care Teams Audit Spec Relationship Specialty Start Date End Date None None PCP - General 05/08/12 04/20/14 documented as of this encounter
--- OUTSIDE RECORDS SUMMARY | 2024-03-15 15:32 | XMS_ITS | Encounter Summary ---
Author Organization [facility] [place] [address] Care Team Providers Care Margarine Churn Operator Name Role Phone None Primary Care Provider Unavailabl e Reason for Visit * Reason Comments Establish Care Encounter Details Date Type Department Care Team (Latest Contact Info) Description 05/22/2012 9:30 AM EST Initial Obstetrics [place] [address] Walt Bay MD [facility] DR OBSTETRICS [place] [address] GA: 15w1d Discharge Disposition: Home Social History [...] care visit, as transfer of care from [facility] due to anti-Estuardo antibodies, at 15w1d. She is also surgically hypothyroid, and is foll[place] [facility] The plan is to keep TSH below 2.5; monthly TSH is ordered at [facility]. The patient's mother is an RN at [employer], and occasionally works float on [...] the Estuardo antigen; it becomes expressed in review manager. There is no risk of hemolytic disease [...] continue to have blood tests monthly in [facility]. Given Your Journal booklet, DVD on . Will need to do QUAD. 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 documented in this encounter Plan of Treatment Upcoming Encounters Date Type Department Care Team (Late st Contact Info) Description 05/23/2024 Hospital Encounter [place] [address] Lexii Ceja MD [facility] DR OBSTETRICS [place] [address] documented as of this encounter Results * US OB Targeted Morphology (06/12/2012 10:55 AM EST) Anatomical Region Laterality Modality Pelvis, Abdomen Ultrasound 06/12/2012 10:5 5 AM EST Narrative 06/12/2012 11:08 AM EST ?OBSTETRICS REPORT ? (Signed Final 06/12/2012 11:07 am) Patient Info ID: ? [id number] ? : ??[birth year] (21 yrs) Name: ? SORCHA E ?Visit Date: 06/12/2012 10:49 am ? LOUISE- ? FRANK Performed By Performed By: ?Itzel Lezama RDMS Attending: ? Lalita Carmona MD Referred By: ? E MELANY BAY MD Service(s) Provided [facility] - Targeted Morphology - Genetics - ? [id number] UOBTV - Viability - Cervical Length - Transvaginal - ??[id number] Indications hypothyroid; possible history of 20 week [...] Tract: ?Visualized L Outflow Tract: ?Visualized Cardiac Ellery: ? Visualized Diaphragm: ?Visualized Abdomen Ventral Wall: [...] Final 06/12/2012 11:07 am) Patient Info ID: [id number] : [birth year] (21 yrs) Name: PREETHI Godoy Visit Date: 06/12/2012 10:49 am SAMANTHA MARIE Performed By Performed By: Itzel Lezama RDMS Attending: Lalita Carmona MD Referred By: Walt BAY MD Service(s) Provided [facility] - Targeted Morphology - Genetics - [id number] UOBTV - Viability - Cervical Length - Transvaginal - [id number] Indications hypothyroid; possible history of 20 week [...] Tract: Visualized L Outflow Tract: Visualized Cardiac Ellery: Visualized Diaphragm: Visualized Abdomen Ventral Wall: Visualized [...] high-risk documented in this encounter Care Teams Margarine Churn Operator Relationship Specialty Start Date End Date None None PCP - General 05/08/12 04/20/14 documented as of this encounter
--- OUTSIDE RECORDS SUMMARY | 2024-03-15 15:33 | XMS_ITS | Encounter Summary ---
Author Organization [facility] Address [address] [place] [address] Care Team Providers Care Residential Counselor Name Role Phone Tatum Arevalo MD Primary Care Provider [phone] Encounter Details Date Type Department Care Team (Late st Contact Info) Description 04/29/2007 Before PRISM Converted Visit (Maple) [facility] - Maple conversion [address] [place] [address] Harsha Kingston MD [address] [place] [phone] Social History Tobacco Use Types Packs/Day Years [...] F. Robinson, MS, PNP Renee Patterson MS, TACK PULLER ([id number]), REFERRING PHYSICIAN Tatum Arevalo M.D. PROBLEM Abdominal [...] Harsha Kingston MD Division of Pediatric Gastroenterology [phone] - Harsha Kingston MD A - RADHA Job ID: [id number] Doc ID: [id number] cc: Tatum Arevalo MD documented in this encounter Procedure Notes * Harsha Gonzalez MD - 02/24/20091128 EST [facility] Colonoscopy Procedure Report Attending Physician: HARSHA GONZALEZ [...] ileum, confirmed by appendiceal orifice, cecal strap (middletown's foot), and ileocecal valve. The scope was [...] GONZALEZ MD, M.D. on 05/14/2007 at 10:23 [facility] Document ID: [id number] * Harsha Gonzalez MD - 02/24/2009 1129 EST [facility] Esophagogastroduodenoscopy Procedure Report Attending Physician: HARSHA GONZALEZ [...] electronically signed by Dr. HARSHA GONZALEZ MD, M.Debra on 05/14/2007 at 09:49 [facility] Document ID: [id number] documented in this encounter Consult Notes * Harsha Gonzalez MD - 02/23/2009 0532 EST CONSULTATION - 04/29/2007 Jim Marino M.D. [address] [place] [address] [address] [place] [address] Marino: THE PEDIATRIC GI TEAM: Pediatric GI, Hepatology & Nutrition MD Cale Arechiga MD Elizabeth F. Robinson, MS, PNP Renee Patterson, MS, TACK PULLER ([facility]), Andree was seen in consultation today at [...] has. She was recently hospitalized just around Christristime, needing a short course of steroids. Her [...] The possibility of celiac disease given her [place] background is of concern and certainly IBD [...] Harsha Kingston MD Division of Pediatric Gastroenterology [phone] - Harsha Kingston MD P - radha Job ID: [id number] Doc ID: [id number] cc: MD Harsha Austin MD P - radha Job ID: [id number] Doc ID: [id number] cc: Jim Marino MD documented in this encounter Plan of Treatment Not on file documented as of this encounter Visit Diagnoses Not on filedocumented in this encounter Care Teams Residential Counselor Relationship Specialty Start Date End Date Tatum Arevalo MD [address] [place] [phone] PCP - General 08/06/08 11/13/10 documented as of this encounter
--- OUTSIDE RECORDS SUMMARY | 2024-03-15 15:33 | XMS_ITS | Encounter Summary ---
Author Organization [facility] Address [address] [place] [address] Care Team Providers Care Disaster Recovery Specialist Name Role Phone Unavailable Primary Care Provider Unavailabl e Encounter Details Date Type Department Care Team (Late st Contact Info) Description 04/29/2007 8:27 [facility] Hospital Encounter [address] [address] Harsha Kingston MD [address] [place] [phone] Social History Tobacco Use Types Packs/Day Years [...]
--- NOTE | 2024-03-15 15:34 | W.ED.GENAD ---
Discharge Plan Disposition Patient Disposition: Admit to [facility] Discharge Details Clinical Impression: Uterine contractions at greater than 20 weeks of gestation Admit Date/Time: 03/15/24 15:50 Admit Provider: Dorota Flores Attending Provider: Dorota Flores Primary Care Provider: Valencia Adhikari ED Provider: Ada Timmons Discharge Data Discharge Date/Time-TO BE ENTERED AT DEPARTURE: 03/15/24 15:47 HPI General Date/Time Provider Initiated Documentation: 03/15/24 15:24. HPI Narrative: Andree is a 33 year old female 27 weeks 2 days who presents to the emergency department today for evaluation of contractions. She reports that she started having diarrhea at 10 AM, has otherwise been feeling well. Around 1 PM she started having contractions, now consistently every 15 minutes. No gush of amniotic fluid or bleeding. Past medical history is significant for labor, gave at 31 weeks on the floor at home. Denies recent fever/chills, nausea/vomiting, other abdominal pains, change in bladder function. Last OB visit was approximately 1 week ago, she says that the fetus was in breech presentation and she was 30% effaced 1 cm dilated at that time. She has been feeling a lot of movement from the baby. She is at high risk , followed by [facility] obstetrics. She says that she was told to come to the nearest emergency department for stabilization. She does have a history of substance use. Physical exam reassuring. Andree is alert and oriented, no acute distress. Easily conversational. Able to palpate fundus approximately 4 to 5 inches above umbilicus. Abdomen is gravid, no tenderness with palpation. heart tones able to be auscultated by nurse, 1 52-1 57. External vaginal exam performed, no presenting parts History and presentation consistent with labor. Discussed case with Dr. Flores, OB. She accepts patient to the birthing unit, advises that patient be brought up immediately and she will see patient upstairs. 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: 2 Review of Systems Narrative: see HPI Exam Const General: cooperative, healthy appearing, comfortable, no acute distress, well developed and well groomed Nutritional Appearance: average body habitus Orientation: alert and oriented x3 GI Inspection: other ( abdomen) Speculum Exam - Vagina: normal appearance of the vagina OB/External & Speculum: deferred Course Vital Signs Vital signs: Vital Signs Temperature 36.9 C 03/15/24 15:20 Pulse 102 H 03/15/24 15:20 Respiratory Rate 18 03/15/24 15:20 Blood Pressure 119/78 03/15/24 15:20 Pulse Oximetry 98 03/15/24 15:20 Temperature 36.9 C 03/15/24 15:20 Temperature Source Oral 03/15/24 15:20 Pulse 102 H 03/15/24 15:20 Respiratory Rate 18 03/15/24 15:20 Blood Pressure 119/78 03/15/24 15:20 Blood Pressure Position Sitting 03/15/24 15:20 Pulse Oximetry 98 03/15/24 15:20 Oxygen Delivery Method Room Air 03/15/24 15:20 Oxygen Flow Rate 0 03/15/24 15:20 Pain Level 9 03/15/24 15:20 Medical Decision Making Quality:SDOH Health Related Social Needs: No Data to Display PFSH All Active Problems (Updated 03/15/24 @ 15:43 by Ada Johnson) Uterine contractions at greater than 20 weeks of gestation (Acute) Encounter for screening for other viral diseases (Acute) Asthma (Chronic) Premature delivery (Active 09/15/12) 32-week delivery Medical History (Updated 03/15/24 @ 15:43 by Ada Johnson) GERD (gastroesophageal reflux disease) Bipolar disorder History of thyroid cancer Surgical History S/P thyroidectomy Tonsillectomy and adenoidectomy Social History Smoking/Tobacco Use Status: Former Tobacco Use Smoking risk assessment performed?: Yes Alcohol Intake: current Alcohol Intake frequency: a few times a week Drug use: Occasionally Substance use type: marijuana Housing: apartment Do you feel safe at home: Yes Do you feel safe in your relationship?: Yes Additional Social history: states she rents a room in a house but has housing insecurity.
[2024-03-15 16:09] VITALS: BP 118/66; PULSE 88; RESP 16; TEMP 36.4; O2SAT 97
--- NOTE | 2024-03-15 16:39 | W.OBCONSULT ---
Date of service: 03/15/24 Time of Service: 16:39 Assessment and Plan Assessment and plan (1) Uterine contractions at greater than 20 weeks of gestation: Status: Acute Assessment and plan: Patient seen in the presenting today with uterine activity. Her cervix is fingertip at best somewhat soft, posterior, thick. Bedside ultrasound performed confirming transverse position with footling presentation. No discrete uterine activity. Appropriate heart rate tracing. Awaiting COVID swab, and urinalysis. My suspicion is that this is related to recent sexual entity. Her fibronectin is negative. She will continue to follow-up with [facility] (2) Premature delivery: Status: Active History of Present Illness History of Present Illness Chief Complaint: Uterine activity Narrative: Patient is a 33-year-old 12 with a history of a 32-week vaginal approximately 12 years ago. She is currently 27 weeks and 2 days. She receives care at [facility]. She called their service today with uterine activity and she was told to be seen and evaluated in the nearest emergency department. On presentation, she was initially seen in the emergency department with stable vital signs then transitioned to the center. She reports no fevers or chills recently. She reports no abdominal trauma. She also reports that she has uncomfortable uterine tightening that is somewhat irregular. She noticed this after 1 contraction at 1 PM. In the recent past, within the last 24 hours, she has been sexually active. She denies bleeding or leaking fluid. She was told at her last triage visit at [facility] that her cervix was 1 to 2 cm 30% effaced and the baby was breech. She denies recent sick contacts. She admits to using a significant amount of tobacco and marijuana. She denies other illicit drug use. Consults Consult date: 03/15/24 Review of Systems All systems reviewed & are unremarkable except as noted in HPI and below Constitutional Constitutional: Reports as per HPI, Denies fatigue, Denies fever(s), Denies headache(s), Denies malaise and Denies poor appetite Eyes Eyes: Reports system reviewed and no additional complaints, except as documented ENT Ears, Nose, Mouth, and Throat: Denies headache(s) Neurologic Neurologic: Denies headache(s) Endocrine Endocrine: Denies fatigue PFSH All Active Problems (Updated 03/15/24 @ 15:43 by Ada Johnson) Uterine contractions at greater than 20 weeks of gestation (Acute) Encounter for screening for other viral diseases (Acute) Asthma (Chronic) Premature delivery (Active 09/15/12) 32-week delivery Medical History (Updated 03/15/24 @ 15:43 by Ada Johnson) GERD (gastroesophageal reflux disease) Bipolar disorder History of thyroid cancer Surgical History S/P thyroidectomy Tonsillectomy and adenoidectomy Social History Smoking/Tobacco Use Status: Former Tobacco Use Smoking risk assessment performed?: Yes Alcohol Intake: current Alcohol Intake frequency: a few times a week Drug use: Occasionally Substance use type: marijuana Housing: apartment Do you feel safe at home: Yes Do you feel safe in your relationship?: Yes Additional Social history: states she rents a room in a house but has housing insecurity. Exam Const General: cooperative and healthy appearing Nutritional Appearance: average body habitus HENMT Head: normal to inspection Eyes General: appearance normal, both eyes and all related structures Resp Effort & Inspection: normal respiratory effort, no audible wheezes and no cough Cardio Palpation: normal PMI Rate: regular rate GI Inspection: normal to inspection Other: Cervix is closed, soft, posterior, fingertip at best. No discrete presenting part. No bulging bag of water. Results Last Vital Signs Temp 97.5 F L 03/15/24 16:09 Pulse 88 03/15/24 16:09 Resp 16 03/15/24 16:09 BP 118/66 03/15/24 16:09 Pulse Ox 97 03/15/24 16:09
[2024-03-15 16:42] LABS: Fetal Fibronectin Negative (Negative)
[2024-03-15 16:46] LABS: Bilirubin Negative (Negative); Blood Negative (Negative); Clarity Clear (Clear); Glucose Negative (Negative); Ketones Negative (Negative); Leukocyte Esterase Negative (Negative); Nitrite Negative (Negative); Specific Gravity 1.025 (1.005-1.025); Urobilinogen 0.2 mg/dL (Up to 0.2)
--- NOTE | 2024-03-15 16:52 | W.PM.OBNL1 ---
Date of service: 03/15/24 Time of Service: 16:53 Objective Temp Pulse Resp BP Pulse Ox 97.5 F L 88 16 118/66 97 03/15/24 16:09 03/15/24 16:09 03/15/24 16:09 03/15/24 16:09 03/15/24 16:09 Laboratory Results Urine Color Yellow (Yellow) 03/15/24 15:31 Urine Clarity Clear (Clear) 03/15/24 15:31 Urine pH 7.0 (5-8) 03/15/24 15:31 Ur Specific [place] 1.025 (1.005-1.025) 03/15/24 15:31 Urine Protein Negative mg/dL (Neg-Trace) 03/15/24 15:31 Urine Ketones Negative mg/dL (Negative) 03/15/24 15:31 Urine Blood Negative (Negative) 03/15/24 15:31 Urine Nitrite Negative (Negative) 03/15/24 15:31 Urine Bilirubin Negative (Negative) 03/15/24 15:31 Urine Urobilinogen 0.2 mg/dL (Up to 0.2) 03/15/24 15:31 Ur Leukocyte Esterase Negative (Negative) 03/15/24 15:31 Urine Glucose Negative mg/dL (Negative) 03/15/24 15:31 Fibronectin Negative (Negative) 03/15/24 15:31 Ultrasound OB Ultrasound for presentation. (Uterine activity) Indication: check position Presentation: Transverse Lie (Double footling breech). Exam complete.
[2024-03-15 16:57] LABS: *AMPHETAMINES SCREEN URINE Negative (Negative); *BARBITURATES SCREEN URINE Negative (Negative); *BENZODIAZEPINES SCREEN URINE Negative (Negative); Cannabinoids THC Positive (Negative); Cocaine Screen,Urine Negative (Negative); METHADONE URINE SCREEN Negative (Negative); OPIATES URINE SCREEN Negative (Negative)
[2024-03-15 16:58] LABS: Tricyclic Antidepressants Negative (Negative)
[2024-03-15 17:35] VITALS: BP 118/66; PULSE 88; TEMP 36.4
[2024-03-15 18:27] LABS: COVID-19 PCR Negative (Negative); Influenza A PCR Negative (Negative); Influenza B PCR Negative (Negative); RSV PCR Negative (Negative); Source Nasopharynx
== END 2024-03-15 17:35 ==
LOC: ER 15:43 → OBS 15:53 → BCD 03-16 07:05
PROVIDERS: Emergency Provider Nurse Practitioner Family; PCP Nurse Practitioner Family; Visit Provider Obstetrics & Gynecology
DX: O47.03 False labor before 37 completed weeks of gestation, third trimester (principal); Z3A.27 27 weeks gestation of pregnancy
CPT/HCPCS: 80307; 87637; 59025; 81003; 82731; G0378

== ENCOUNTER 2024-04-01 14:00 | Emergency (ER) | payer MEDICAID, SELFPAY ==
[2024-04-01] VITALS (12 sets, daily range): BP systolic 116–123; BP diastolic 66–78; PULSE 66–91; RESP 13–22; TEMP 36–36.6; O2SAT 98–100
--- NOTE | 2024-04-01 14:44 | W.ED.GENAD ---
Discharge Plan Disposition Patient Disposition: Home Condition: Good Discharge Details Clinical Impression: Nausea & vomiting, Abdominal discomfort Primary Care Provider: Valencia Adhikari ED Provider: Behzad Candelaria Home Meds and New Rx's Prescriptions: New cephalexin 500 mg capsule 500 mg PO QID 7 Days Qty: 28 0RF No Action levothyroxine [Synthroid] 200 MCG tablet 225 mcg PO QAM 21-iron fu-folic acid [ Complete] 1 tab PO DAILY Discharge Instructions Instructions: Abdominal Pain, Adult ED, Nausea and Vomiting, Adult ED Additional Instructions: At this time your laboratory workup is returned reassuring. Please continue taking small frequent sips of water and crackers to stay well-hydrated and fed. Will contact you if the urine shows evidence of a urinary tract infection. Please follow-up with your obstetrics chief of surgery for your next appointment this Sunday. If you notice any worsening of your symptoms, or any new symptoms such as vomiting, diarrhea, fever, chills, shortness of breath, chest pain, numbness, weakness, or fainting , please return immediately to the emergency department for reevaluation. Please follow up with your primary care provider as soon as possible for reassessment and reevaluation. As always, it was a pleasure participating in your medical care today. Referrals: Valencia Adhikari [Primary Care Provider] - Discharge Data Discharge Date/Time-TO BE ENTERED AT DEPARTURE: 04/01/24 17:59 HPI General Date/Time Provider Initiated Documentation: 04/01/24 14:12. HPI Narrative: This is a pleasant Rh+ 33-year-old female who is currently 29 weeks and a with a past medical history of a thyroidectomy but no other significant past medical history who is recognized as a high risk and currently managed by [facility], who presents today for evaluation of nausea vomiting and left flank pain. Patient states that this morning while at work she felt nauseous and then subsequently had multiple episodes of vomiting and diarrhea throughout the day. She has not been able to keep much of anything down. She also developed left-sided flank pain which she describes as a stabbing aching-like sensation, as well as mild umbilical pain which she states feels like someone is pulling through her bellybutton. She admits to an increased amount of vaginal discharge but denies any vaginal bleeding. She states that she still feels fetus moving well. She denies any dysuria. She denies any fever or chills. She denies any other sick contacts with similar symptoms. No other complaints at this time. Of note she was born early, as well as her other living child. Related Data Home Medications ?Medication ?Instructions ?Recorded ?Confirmed levothyroxine 200 mcg tablet 225 mcg PO QAM 09/15/12 04/01/24 (Synthroid) 21-iron fu-folic acid 1 tab PO DAILY 01/23/24 04/01/24 cephalexin 500 mg capsule 500 mg PO QID 7 days #28 caps 04/01/24 Previous Rx's ?Medication ?Instructions ?Recorded cephalexin 500 mg capsule 500 mg PO QID 7 days #28 caps 04/01/24 Allergies Allergy/AdvReac Type Severity Reaction Status Date / Time hydromorphone (Hydromorphone) Allergy Severe Anaphylaxsi Unverified 04/01/24 14:11 s meperidine Allergy gi upset Unverified 04/01/24 14:11 itching codeine AdvReac Mild Nausea Unverified 04/01/24 14:11 General Stated Complaint: Abd Prob ALISHA: 3 Review of Systems All systems reviewed & are unremarkable except as noted in HPI and below Exam Narrative Exam Narrative: 1.Const: Well-nourished, Well-developed, appearing stated age 2.Eyes: PERRL, no conjunctival injection, and symmetrical lids. 3.ENT: Atraumatic external nose and ears. Dry MM. Neck: Symmetric, trachea midline, No thyromegaly. 4.CVS: +S1/S2, Peripheral pulses 2+ and equal in all extremities. Brisk capillary refill in all extremities. 5.RESP: Unlabored respiratory effort. Clear to auscultation bilaterally. No wheezes rales or rhonchi 6.GI: Soft, nondistended, appropriately gravid abdomen, mild left-sided abdominal tenderness, left CVA tenderness. No right CVA tenderness. No right lower quadrant tenderness. Mild suprapubic achiness. 7.MSK: Normocephalic/Atraumatic, Extremities w/o deformity or ttp No cyanosis or clubbing, Normal movement of all extremities 8.Skin: Warm, Dry. No rashes or lesions. 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 Sensation grossly intact, no focal neurologic deficits. 10.Psych: (AAO) x3. Appropriate mood and affect Course Vital Signs Vital signs: Vital Signs Temperature 36.6 C 04/01/24 14:07 Pulse 91 H 04/01/24 14:07 Respiratory Rate 16 04/01/24 14:07 Blood Pressure 123/78 04/01/24 14:07 Pulse Oximetry 98 04/01/24 14:07 Temperature 36.6 C 04/01/24 14:07 Temperature Source Oral 04/01/24 14:07 Pulse 91 H 04/01/24 14:07 Respiratory Rate 16 04/01/24 14:07 Blood Pressure 123/78 04/01/24 14:07 Blood Pressure Position Sitting 04/01/24 14:07 Pulse Oximetry 98 04/01/24 14:07 Oxygen Delivery Method Room Air 04/01/24 14:07 Oxygen Flow Rate 0 04/01/24 14:07 Pain Level 8 04/01/24 14:07 Medical Decision Making This is a pleasant Rh+ 33-year-old female who is currently 29 weeks and a with a past medical history of a thyroidectomy but no other significant past medical history who is recognized as a high risk and currently managed by [facility], who presents today for evaluation of nausea vomiting and left flank pain. Patient states that this morning while at work she felt nauseous and then subsequently had multiple episodes of vomiting and diarrhea throughout the day. She has not been able to keep much of anything down. She also developed left-sided flank pain which she describes as a stabbing aching-like sensation, as well as mild umbilical pain which she states feels like someone is pulling through her bellybutton. She admits to an increased amount of vaginal discharge but denies any vaginal bleeding. She states that she still feels fetus moving well. She denies any dysuria. She denies any fever or chills. She denies any other sick contacts with similar symptoms. No other complaints at this time. Of note she was born early, as well as her other living child. Exam demonstrates an appropriately gravid patient, no hypotension, blood pressure minimally elevated at 91. Dry mucous membranes, left-sided tenderness, left CVA tenderness and suprapubic tenderness. Concern for potential UTI, pyelonephritis, as well as potential contractions. No bleeding, no acute surgical abdomen on palpation to suggest uterine rupture. Viral gastroenteritis certainly on the differential as well as well as pancreatitis. Gallbladder pathology and choledocholithiasis is on the differential but less likely with no right upper quadrant tenderness. Diverticulitis unlikely given age group and symptoms. We will rehydrate, give Ofirmev for pain control, Zofran for nausea, check for concerning etiologies, start nonstress testing, monitor closely and reassess. 5:30 PM Patient's laboratory workup has returned, minimal white count at 11.4, no bandemia. Electrolytes stable, renal function normal. Thyroid function normal as well. Transaminases normal. nonstress testing did not show any significant decelerations or abnormalities per OB nursing staff. Patient's pain has improved but not resolved. Repeat exam shows no evidence of an acute surgical abdomen. Vaginal exam was performed with female nurse at bedside. Cervix is notably closed and not dilated or open. Initial urinalysis showed trace leuk esterase, 0-2 WBCs, but many epithelial cells and moderate bacteria. Repeat urinalysis was drawn and shows no leuk esterase, but does show 0-14 WBCs with small amount of bacteria and few epithelials. We will send for urine culture. Out of an abundance of precaution we will treat with Keflex for potential mild UTI. Symptoms appear nonsurgical, limited bedside ultrasound was performed, heart rate was in the 140s to 150s. Good movements of the fetus. No large vascular lakes were noted. Unfortunately I was unable to save the images secondary to a machine problem. We did reach out to obstetrics at [facility], and I discussed the case with Dr. Teixeira. He will follow-up with the patient this week for reassessment. They have no additional recommendations at this time. Patient's symptomatology appears inconsistent with ovarian torsion, tubo-ovarian abscess, uterine rupture, demise, severe diverticulitis, pyelonephritis (no fevers, significant white count, or purulence on UA), or other significant abnormality. Patient will be discharged home. Recommend continued NSAID therapy with Tylenol. Discussed red flags for which to return. I have extensively reviewed the treatment plan and discharge instructions with the patient. I have addressed all patient concerns at this time. The patient was made aware of what symptoms to monitor for that would warrant a return to the emergency department. Discussed the plan with the patient, they demonstrate verbal understanding and agreement with our assessment and plan at this time. The documentation in this chart was dictated using [employer] dictation software. Please excuse any dictation errors. Quality:SDOH Health Related Social Needs: No Data to Display PFSH All Active Problems (Updated 04/01/24 @ 17:38 by Behzad Candelaria DO) Abdominal discomfort (Acute) Nausea & vomiting (Acute) Uterine contractions at greater than 20 weeks of gestation (Acute) Encounter for screening for other viral diseases (Acute) Asthma (Chronic) Premature delivery (Active 09/15/12) 32-week delivery Medical History (Updated 04/01/24 @ 17:38 by Behzad Candelaria DO) GERD (gastroesophageal reflux disease) Bipolar disorder History of thyroid cancer Surgical History S/P thyroidectomy Tonsillectomy and adenoidectomy Social History Smoking/Tobacco Use Status: Current every day Tobacco Type: cigarettes Years smoked: 15 Tobacco: How many years used: 15 Smoking risk assessment performed?: Yes Alcohol Intake: former Drug use: Occasionally Substance use type: marijuana Housing: apartment Do you feel safe at home: Yes Do you feel safe in your relationship?: Yes Additional Social history: states she rents a room in a house but has housing insecurity.
[2024-04-01 14:55] LABS: Bilirubin Negative (Negative); Blood Negative (Negative); Clarity Clear (Clear); Glucose Negative (Negative); Ketones Negative (Negative); Leukocyte Esterase Trace (Negative); Nitrite Negative (Negative); Urobilinogen 0.2 mg/dL (Up to 0.2)
[2024-04-01 15:03] LABS: Bacteria Moderate HPF (Negative); C & S Indicated? No/Sq. Contamination; Casts Negative LPF (Negative); Crystals Negative HPF (Negative); Epithelial Cells Many HPF (Negative); Mucus Negative (Negative); Other Cells Rare Transitional (Negative); RBC Negative HPF (0-2); WBC 0-2 HPF (0-5)
[2024-04-01 15:17] LABS: Abs Immature Grans 0.07 10^3/uL (0.0-0.06); Absolute Lymphocyte Count 1.37 10^3/uL (1.2-3.4); Absolute Monocyte Count 0.75 10^3/uL (0.1-0.8); Basophils % 0.3 %; Eosinophils % 0.3 %; HCT 30.7 % (36.0-46.0); HGB 10.5 g/dL (11.2-15.7); Immature Grans % 0.6 %; MCH 34.7 pg (27.0-33.0); MCHC 34.2 % (32.0-36.0); MCV 101 fL (80-95); Monocytes % 6.6 %; Neutrophils % 80.2 %; Platelet Count 152 10^3/uL (130-400); RBC 3.03 10^6/uL (3.93-5.22); RDW 13.1 % (11.7-14.6); RDW-SD 48.9 fL; WBC 11.43 10^3/uL (4.4-10.8)
[2024-04-01 15:19] LABS: Absolute Basophil Count 0.03 10^3/uL (0.0-0.2); Absolute Eosinophil Count 0.03 10^3/uL (0.0-0.7); Absolute Neutrophil Count 9.17 10^3/uL (1.2-6.7)
[2024-04-01] MEDS: Ondansetron 4 MG/2 ML VIAL IVP (15:22)
[2024-04-01] MEDS: ACETAMINOPHEN 1,000 MG/100 ML BAG 400 MG IVPB (15:23)
[2024-04-01] MEDS: Lactated Ringers 1,000 ML 1000 ML IV (15:24)
[2024-04-01 15:40] LABS: ALT 16 U/L (14-59); AST 10 U/L (15-37); Albumin 2.8 g/dL (3.4-5.0); Alkaline Phosphatase 76 U/L (46-116); Anion Gap 12.4 mmol/L (3-11); BUN 5 mg/dL (7-18); Bilirubin, Total 0.55 mg/dL (0.2-1.0); CO2 22.6 mmol/L (21.0-32.0); CREATININE 0.4 mg/dL (0.55-1.02); Chloride 105 mmol/L (98-107); Estimated GFR 134.78 (mL/min/1.73m2); Glucose 78 mg/dL (74-106); Lipase 19 U/L (<78); Potassium 3.8 mmol/L (3.5-5.1); Sodium 140 mmol/L (136-145); TSH (W/Ref FT4) 0.43 uIU/mL (0.36-3.74); Total Protein 6.3 g/dL (6.4-8.2)
[2024-04-01 15:49] LABS: Calcium 8.3 mg/dL (8.5-10.1)
[2024-04-01 16:59] LABS: *AMPHETAMINES SCREEN URINE Negative (Negative); *BARBITURATES SCREEN URINE Negative (Negative); *BENZODIAZEPINES SCREEN URINE Negative (Negative); Cannabinoids THC Positive (Negative); Cocaine Screen,Urine Negative (Negative); METHADONE URINE SCREEN Negative (Negative); OPIATES URINE SCREEN Negative (Negative); Tricyclic Antidepressants Negative (Negative)
[2024-04-02 20:57] LABS: HIV-1/2 Ag & Ab Screen Negative (Negative)
[2024-04-02 21:02] LABS: Hepatitis C Ab w Rflx HCV PCR Negative (Negative)
[2024-04-02 21:57] LABS: Hepatitis B Surface Ag Negative (Negative)
[2024-04-03 10:38] LABS: Rubella IgG Ab (UVM) Negative (See Note)
[2024-04-03 11:08] LABS: Syphilis Serology (RPR) Negative (Negative)
== END 2024-04-01 17:59 | disposition home or self-care (01) ==
PROVIDERS: Obstetrics & Gynecology Gynecology; Emergency Provider Student in an Organized Health Care Education/Training Program; PCP Nurse Practitioner Family
DX: O21.2 Late vomiting of pregnancy (principal); O99.613 Diseases of the digestive system complicating pregnancy, third trimester; R19.7 Diarrhea, unspecified; O26.893 Other specified pregnancy related conditions, third trimester; R42 Dizziness and giddiness; R10.9 Unspecified abdominal pain; O99.333 Smoking (tobacco) complicating pregnancy, third trimester; F17.210 Nicotine dependence, cigarettes, uncomplicated; Z3A.29 29 weeks gestation of pregnancy
CPT/HCPCS: 36415; 80053; 80307; 83690; 86803; 86850; 86900; 86901; 87340; 87389; 96361; 96365; 96375; 99284; 81003; 81015; 84443; 85025; 86592; 86762; 87086; J0131; J2405

== ENCOUNTER 2024-04-20 18:10 | Observation (INO) | payer MEDICAID, SELFPAY ==
[2024-04-20 18:15] VITALS: BP 133/77; PULSE 121; RESP 20; TEMP 36.8; O2SAT 99
--- NOTE | 2024-04-20 18:19 | ED.GENADUL_ITS ---
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 HPI Narrative: MDM Concern for possibility of active labor. No presenting parts. I was in touch with Dr. Flores who accepted the patient to the Center for nonstress test and monitoring. I did not delay the patient's transfer to obtain IV access. She was not complaining of any vaginal bleeding so I did not feel that she required a type and screen. HPI This is a 33-year-old at approximately 32 weeks emergency department via private vehicle in the setting of concerns for contractions. She reports that her contractions began at 11 AM this morning. They have been every 10 to 12 minutes. She denies any vaginal bleeding she denies any gush of fluids. Exam General: Well-appearing in no acute distress speaking in complete sentences. Head: Normocephalic, atraumatic. Eye: Extraocular eye movements intact. No conjunctival injection. No scleral icterus. Ear, nose, mouth, throat: Grossly normal inspection. Normal voice, handling secretions normally. Neck: Trachea midline. Cardiovascular: Well-perfused distal extremities. Respiratory: Nonlabored respiration. Gastrointestinal: Nondistended abdomen. : With patient's nurse in the emergency department refrigeration service technician lives in the patient's room I completed an external exam. Patient had no presenting parts. Musculoskeletal: No edema. Moving all 4 extremities spontaneously. Skin: Normal for age and race, grossly normal temperature and turgor. No acute rash. Neurologic: Alert and appropriate, no apparent acute deficits. GCS 15. 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 ALISHA: 3 Course Vital Signs Vital signs: Vital Signs Temperature 36.8 C 04/20/24 18:15 Pulse 121 H 04/20/24 18:15 Respiratory Rate 20 04/20/24 18:15 Blood Pressure 133/77 04/20/24 18:15 Pulse Oximetry 99 04/20/24 18:15 Temperature 36.8 C 04/20/24 18:15 Pulse 121 H 04/20/24 18:15 Respiratory Rate 20 04/20/24 18:15 Blood Pressure 133/77 04/20/24 18:15 Pulse Oximetry 99 04/20/24 18:15 Pain Level 8 04/20/24 18:15 Medical Decision Making Quality:SDOH Health Related Social Needs: No Data to Display PFSH All Active Problems (Updated 04/20/24 @ 23:13 by Mark Huffman MD) Uterine contractions (Acute) Abdominal discomfort (Acute) Nausea & vomiting (Acute) Uterine contractions at greater than 20 weeks of gestation (Acute) Encounter for screening for other viral diseases (Acute) Asthma (Chronic) Premature delivery (Active 09/15/12) 32-week delivery Medical History (Updated 04/20/24 @ 23:13 by Mark Huffman MD) GERD (gastroesophageal reflux disease) Bipolar disorder History of thyroid cancer Surgical History S/P thyroidectomy Tonsillectomy and adenoidectomy Social History Smoking/Tobacco Use Status: Current every day Tobacco Type: cigarettes Years smoked: 15 Tobacco: How many years used: 15 Smoking risk assessment performed?: Yes Alcohol Intake: former Drug use: Occasionally Substance use type: marijuana Housing: apartment Do you feel safe at home: Yes Do you feel safe in your relationship?: Yes Additional Social history: states she rents a room in a house but has housing insecurity.
[2024-04-20 18:33] VITALS: BP 109/61; PULSE 91; TEMP 36.7
[2024-04-20 18:36] VITALS: BP 109/61; PULSE 91
[2024-04-20 19:03] LABS: ROM Plus Negative
[2024-04-20 19:17] VITALS: BP 109/56; PULSE 83; TEMP 36.8
--- NOTE | 2024-04-20 19:38 | W.OBNST ---
Date of service: 04/20/24 Time of Service: 19:38 NST Evaluation Reason for NST Reasons for Nonstress Test: LABOR Gestational Age Gestational Age in Weeks and Days: 32 Weeks and 3Days Test and Monitor Explained Test/Monitor Explained: Test Explained and Monitor Explained Vital Signs Blood Pressure: 109/61 Pulse: 91 Temperature: 98.1 F NST Information Date on Monitor: 04/20/24 Time on Monitor: 18:26 Date off Monitor: 04/20/24 Time off Monitor: 19:26 Total Time on Monitor: 60 NST Interventions: PO Hydration NST Evaluation Patient States Movement: Present FHR Baseline: 145 Variability: Moderate 6-25 bpm Accelerations: 15x15 Decelerations: None NST Results: Reactive Note Ultrasound Done: N/A. NST Note Note: Reactive, category 1 strip. Not in labor NST Reviewed and Verified by: Dorota Flores
[2024-04-20 19:39] VITALS: BP 109/61; PULSE 91; TEMP 36.7
--- NOTE | 2024-04-20 19:45 | W.PM.PROGNOT ---
Date of Service Date of service: 04/20/24 Time of Service: 19:45 Assessment and Plan Assessment and plan (1) Uterine contractions at greater than 20 weeks of gestation: Status: Acute Assessment and plan: Patient reports uterine contractions with no cervical change during the course of her stay in the center. Discharged to home. Rest, ambulate as needed. Hydrate. Follow-up at [facility] as scheduled 04/21/2024. All questions answered. (2) Premature delivery: Status: Active Subjective Subjective Interval history since last seen: Patient was seen on the center after presenting to the emergency department at 32 weeks and 6 days. They have been moving and active. She reports more frequent contractions. She is a patient of a [facility]. She had an appointment 2 weeks ago and is due for her next appointment tomorrow. She called because of contractions and she was told to come to the nearest facility. She has a category 1, reactive NST. She has mild potentially irregular contractions. Over the course of 2-hour stay in the center, she has had 0 cervical change. Cervical exam is fingertip, 30% effaced. Ballotable. She did have a ROM plus performed which is negative. With this reassurance and her status, she will be discharged to home. She was instructed that she has more contractions through the night, she may benefit from being seen at [facility] sooner. All questions answered. Objective Last Vital Signs Temp 98.3 F 04/20/24 19:17 Pulse 83 04/20/24 19:17 Resp 20 04/20/24 18:15 BP 109/56 L 04/20/24 19:17 Pulse Ox 99 04/20/24 18:15 Laboratory Results - last 24 hr 04/20/24 18:30 Membranes Rupture Negative Time Spent with Patient Time Spent with Patient: 25-34 minutes Time was spent: preparing to see the patient(eg.review tests), obtaining and/or reviewing separately otained hiistory, ordering medications,tests, procedures, referring, communicating with other health direct care counselor, indepentently interpreting results and counseling the patient
== END 2024-04-20 19:45 | disposition home or self-care (01) | DRG 833 ==
LOC: ER 18:19 → OBS 18:27
PROVIDERS: Admitting Provider Obstetrics & Gynecology; Emergency Provider Emergency Medicine; PCP Nurse Practitioner Family; Visit Provider Obstetrics & Gynecology
DX: O47.03 False labor before 37 completed weeks of gestation, third trimester (principal); Z3A.32 32 weeks gestation of pregnancy
CPT/HCPCS: 59025; 84112; 99285

== ENCOUNTER 2024-05-01 14:13 | Outpatient (CLI) | payer MEDICAID, SELFPAY ==
[2024-05-01] MEDS: Betamet Acet/Betamet Na Ph Inj. 30 MG/5 ML 12 MG IM (18:41)
== END 2024-05-01 18:51 | disposition home health service (06) ==
LOC: BCD 14:13 → OBS 15:27
PROVIDERS: PCP Nurse Practitioner Family; Visit Provider Obstetrics & Gynecology
DX: O09.213 Supervision of pregnancy with history of pre-term labor, third trimester (principal); Z3A.34 34 weeks gestation of pregnancy
CPT/HCPCS: J0702

== ENCOUNTER 2024-05-07 13:46 | Outpatient (CLI) | payer MEDICAID, SELFPAY ==
[2024-05-07 14:13] VITALS: BP 115/82; PULSE 108; RESP 22; TEMP 36.8; O2SAT 98
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
[2024-05-07 15:19] VITALS: BP 112/66; PULSE 90
[2024-05-07 15:21] VITALS: BP 112/66; PULSE 90; RESP 16; TEMP 37; O2SAT 99
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
[2024-05-07 16:46] VITALS: BP 112/66; PULSE 90; TEMP 37
--- NOTE | 2024-05-08 07:47 | W.PM.PROGNOT ---
Date of Service Date of service: 05/08/24 Time of Service: 07:47 Subjective Subjective Interval history since last seen: Patient left AGAINST MEDICAL ADVICE at approximately 2 and half hours of continuous monitoring. Objective Last Vital Signs Temp 98.6 F 05/07/24 15:21 Pulse 90 05/07/24 15:21 Resp 16 05/07/24 15:21 BP 112/66 05/07/24 15:21 Pulse Ox 99 05/07/24 15:21 Time Spent with Patient Time Spent with Patient: <25 minutes Time was spent: preparing to see the patient(eg.review tests) and obtaining and/or reviewing separately [facility] hiistory
== END 2024-05-07 18:18 ==
LOC: ER 14:49 → BCD 15:11 → OBS 15:14
PROVIDERS: Emergency Provider Emergency Medicine; PCP Nurse Practitioner Family; Visit Provider Obstetrics & Gynecology
DX: O60.10X0 Preterm labor with preterm delivery, unspecified trimester, not applicable or unspecified; V87.7XXA Person injured in collision between other specified motor vehicles (traffic), initial encounter
CPT/HCPCS: 76815; 99285; 59025; 99284

== ENCOUNTER 2024-05-08 13:10 | Outpatient (CLI) | payer MEDICAID, SELFPAY ==
[2024-05-08 13:27] VITALS: BP 122/71; PULSE 106
[2024-05-08 14:08] VITALS: BP 122/71; PULSE 106; TEMP 36.6
== END 2024-05-08 14:30 ==
LOC: BCD 13:12 → OBS 13:23
PROVIDERS: PCP Nurse Practitioner Family; Visit Provider Obstetrics & Gynecology
DX: O26.893 Other specified pregnancy related conditions, third trimester (principal); R10.30 Lower abdominal pain, unspecified; Z3A.35 35 weeks gestation of pregnancy
CPT/HCPCS: 59025; 87480; 87510; 87660

== ENCOUNTER 2024-05-09 08:26 | Inpatient (IN) | payer MEDICAID, SELFPAY ==
[2024-05-09] VITALS (14 sets, daily range): BP systolic 90–129; BP diastolic 60–87; PULSE 62–89; RESP 16–18; TEMP 36.2–36.9; O2SAT 98–99
[2024-05-09 08:24] LABS: ROM Plus Positive
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
[2024-05-09 08:38] LABS: *AMPHETAMINES SCREEN URINE Negative (Negative); *BARBITURATES SCREEN URINE Negative (Negative); *BENZODIAZEPINES SCREEN URINE Negative (Negative); Cannabinoids THC Positive (Negative); Cocaine Screen,Urine Negative (Negative); METHADONE URINE SCREEN Negative (Negative); OPIATES URINE SCREEN Negative (Negative)
[2024-05-09 08:42] LABS: Tricyclic Antidepressants Negative (Negative)
[2024-05-09] MEDS: Oxytocin/Normal Saline 30 UNIT/500 ML BAG 95 UNITS IV (08:55)
[2024-05-09 08:57] LABS: HCT 39.1 % (36.0-46.0); HGB 13.3 g/dL (11.2-15.7); MCH 33.5 pg (27.0-33.0); MCV 99 fL (80-95); Platelet Count 163 10^3/uL (130-400); RBC 3.97 10^6/uL (3.93-5.22); RDW 12.1 % (11.7-14.6); RDW-SD 44.2 fL
[2024-05-09 09:12] LABS: WBC 28.61 10^3/uL (4.4-10.8)
--- NOTE | 2024-05-09 09:21 | OBVDS_ITS ---
Date of service: 05/09/24 Time of Service: 09:21 OB Labor/ Delivery Information Baby A Delivery Delivery Method: Spontaneaous Presentation: Cephalic Vertex Position: Right Occipital Anterior Cord Description-Baby A: 3 Vessels and Nuchal Cord (Loose, delivered through) Amniotic Fluid: [place] Tinged Estimated Blood Loss: 100 Delivery Outcome: Liveborn Note: After her initial examination, under short duration, patient felt the urge to bear down. She had rapidly progressed from 4 cm to 8 cm to complete. With good maternal effort, she pushed the vertex over an intact perineum. There was a nuchal cord which was loose and easily delivered through. A three-vessel cord was noted, clamped, and cut at the appropriate interval. Baby was initially skin to skin with mom. Marketing Sales Manager in attendance for additional assessment and treatment of this . A segment of cord for cord gases were obtained. Cord blood sample was obtained. Placenta delivered and was noted to be intact, [place]. There is no evidence of cervical, vaginal, or perineal lacerations noted. Patient received Pitocin for uterine tonicity. Qualitative blood loss was 100 mL. Mom is stable after delivery. Baby is under the care of pediatrics. Providers Doctor: Dorota Flores Nurse: Yadira Coon Nurse: Jered Olsen Labor/Delivery Information Number of Babies in Womb: 1 Steroids Given: None Reason Steroids Not Administered: N/A and Imminent Delivery Group Beta Strep: Done-Result Unknown Shoulder Dystocia: No Stages of Labor Onset of Labor Date: 05/09/24 Onset of Labor Time: 01:00 Complete Dilatation Date: 05/09/24 Complete Dilatation Time: 08:47 Labor - Stage 1 Duration: 7 hours and 47 minutes ROM Baby A: 05/09/24 ROM Baby A: 01:00 ROM Total Time- Baby A: [id number] Delivery Date-Baby A: 05/09/24 Infant Delivery Time-Baby A: 08:51 Labor Stage 2 Duration: 4 minutes Placenta Delivery Date-Baby A: 05/09/24 Placenta Delivery Time-Baby A: 08:58 Labor-Stage 3 Duration: 7 minutes Total Length of Labor-Baby A: 7 hours and 51 minutes Placenta Status: Delivered Baby A Infant Gender: Female Gestational Status: Late (34-36.6 wks) Gestational Age in Weeks/Days: 34 Weeks and 4 Days Score-1 Minute Interval(Baby A) Heart Rate-1 minute: 100 BPM or Greater Respiratory Effort- 1 minute: No Spontaneous Effort Muscle Tone-1 minute: Limp Reflex Response-1 minute: Minimal Response Color-1 minute: Pallor or Cyanosis Total Score-1 minute: 3 Score-5 Minute Interval(Baby A) Heart Rate- 5 minute: 100 BPM or Greater Respiratory Effort-5 minute: Slow Respiration/Weak Cry Muscle Tone-5 minute: Minimal Flexion/Extension Reflex Response-5 minute: Minimal Response Color-5 minute: Bluish Hands or Feet Total Score- 5 minute: 6
[2024-05-09] MEDS: Hamamelis Leaf/Glycerin 100 EACH BOX PR ×2 (11:00→20:01)
[2024-05-09] MEDS: Acetaminophen 325 MG TAB 650 MG PO ×2 (11:00→17:58)
[2024-05-09] MEDS: Levothyroxine 100 MCG TAB 375 MCG PO (15:25)
[2024-05-09] MEDS: Nicotine 4 MG LOZG SUC ×2 (15:30→20:01)
[2024-05-09] MEDS: Ibuprofen 600 MG TAB PO (21:15)
[2024-05-10] MEDS: Docusate Sodium 100 MG CAP PO ×2 (06:17→11:52)
[2024-05-10] MEDS: Acetaminophen 325 MG TAB 650 MG PO ×2 (06:17→11:51)
[2024-05-10] MEDS: Ibuprofen 600 MG TAB PO ×2 (06:18→11:52)
[2024-05-10] MEDS: Levothyroxine 100 MCG TAB 375 MCG PO (06:19)
[2024-05-10 07:00] LABS: Abs Immature Grans 0.06 10^3/uL (0.0-0.06); Absolute Basophil Count 0.05 10^3/uL (0.0-0.2); Absolute Eosinophil Count 0.13 10^3/uL (0.0-0.7); Absolute Lymphocyte Count 1.68 10^3/uL (1.2-3.4); Absolute Monocyte Count 0.98 10^3/uL (0.1-0.8); Basophils % 0.4 %; Eosinophils % 1.1 %; HGB 12.6 g/dL (11.2-15.7); Immature Grans % 0.5 %; Lymphocytes % 14.4 %; MCH 34.3 pg (27.0-33.0); MCV 98 fL (80-95); MPV 14.1 fL (8.0-11.0); Monocytes % 8.4 %; Neutrophils % 75.2 %; Platelet Count 140 10^3/uL (130-400); RBC 3.67 10^6/uL (3.93-5.22); RDW 12.4 % (11.7-14.6); RDW-SD 45.1 fL; WBC 11.64 10^3/uL (4.4-10.8)
[2024-05-10 07:02] LABS: Absolute Neutrophil Count 8.75 10^3/uL (1.2-6.7)
[2024-05-10 08:45] VITALS: BP 125/75; PULSE 88; RESP 18; TEMP 36.5; O2SAT 99
[2024-05-10] MEDS: Nicotine 4 MG LOZG SUC ×2 (09:18→11:50)
--- NOTE | 2024-05-10 10:48 | W.PM.OBPNV1 ---
Date of service: 05/10/24 Time of Service: 10:48 Assessment and Plan Assessment and plan (1) delivery: Status: Acute Assessment and plan: D/C to [place] status. Follow up in 2 and 6 weeks (2) Hypothyroid: Status: Chronic Assessment and plan: continue synthroid Subjective Subjective Interval history: Patient seen and examined. Doing well. Pumping. No Pain. Bleeding is appropriate. WBC is improved Patient comments: No complaints and Pain well controlled Jolon baby status: Doing well Narrative: Desires D/C to [place] Exam Physical Exam Vital signs: Temp Pulse Resp BP Pulse Ox 97.7 F 88 18 125/75 99 05/10/24 08:45 05/10/24 08:45 05/10/24 08:45 05/10/24 08:45 05/10/24 08:45 Vital Signs Reviewed: Yes Constitutional Constitutional: no acute distress HEENT Exam HEENT Exam: Normal Neck Exam Neck Exam: Normal Respiratory Exam Respiratory Exam: Normal Cardiovascular Exam Cardiovascular Exam: Normal Abdominal Exam Abdomen: Tender Fundal Exam Fundus: Below Umbilicus and Firm Results Hemoglobin/Hematocrit: Hgb 12.6 g/dL (11.2-15.7) 05/10/24 06:03 Hct 36.0 % (36.0-46.0) 05/10/24 06:03 Abnormal Lab Findings: Abnormal Labs 05/09/24 05/09/24 05/10/24 07:55 08:45 06:03 WBC 28.61 H* 11.64 H RBC 3.67 L MCV 99 H 98 H MCH 33.5 H 34.3 H MPV 14.1 H Absolute Neutrophils 8.75 H Absolute Monocytes 0.98 H Ur THC Screen Positive A
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
[2024-05-10] MEDS: Dibucaine 1% 28 GM TUBE TP (11:50)
[2024-05-10] MEDS: Hamamelis Leaf/Glycerin 100 EACH BOX PR (11:50)
[2024-05-12 11:17] LABS: Fentanyl Scr w/Rfx Confirm Negative ng/mL (<1)
[2024-05-15 11:39] LABS: Buprenorphine Negative ng/mL (Cutoff: 5.0)
== END 2024-05-10 12:00 | disposition home or self-care (01) | DRG 807 ==
PROVIDERS: Admitting Provider Obstetrics & Gynecology; PCP Nurse Practitioner Family; Visit Provider Obstetrics & Gynecology
DX: O60.14X0 Preterm labor third trimester with preterm delivery third trimester, not applicable or unspecified (principal); Z37.0 Single live birth; Z3A.34 34 weeks gestation of pregnancy; O99.52 Diseases of the respiratory system complicating childbirth; J45.909 Unspecified asthma, uncomplicated; O99.344 Other mental disorders complicating childbirth; F31.9 Bipolar disorder, unspecified; E89.0 Postprocedural hypothyroidism; O99.284 Endocrine, nutritional and metabolic diseases complicating childbirth; O99.62 Diseases of the digestive system complicating childbirth; O99.334 Smoking (tobacco) complicating childbirth; F17.210 Nicotine dependence, cigarettes, uncomplicated; O69.81X0 Labor and delivery complicated by cord around neck, without compression, not applicable or unspecified; Z85.850 Personal history of malignant neoplasm of thyroid; K21.9 Gastro-esophageal reflux disease without esophagitis
CPT/HCPCS: 36415; 80307; 80348; 84112; 85027; 86850; 86900; 86901; 85025

== ENCOUNTER 2024-06-20 14:08 | Outpatient (REF) | payer MEDICAID, SELFPAY ==
[2024-06-23 12:46] LABS: Chlamydia Result Negative (Negative); GC Result Negative (Negative)
== END 2024-06-20 14:09 | disposition home or self-care (01) ==
LOC: LBN 14:08
PROVIDERS: PCP Nurse Practitioner Family; Visit Provider Obstetrics & Gynecology
DX: Z30.430 Encounter for insertion of intrauterine contraceptive device (principal); Z39.2 Encounter for routine postpartum follow-up
CPT/HCPCS: 87491; 87591

== ENCOUNTER 2024-08-20 05:17 | Emergency (ER) | payer MEDICAID, SELFPAY ==
[2024-08-20 05:21] VITALS: BP 153/89; PULSE 88; RESP 18; TEMP 36.1; O2SAT 100
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
[2024-08-20] MEDS: diazePAM 10 MG/2 ML SYR IM (05:41)
[2024-08-20] MEDS: diphenhydrAMINE 50 MG/ML VIAL IM (05:42)
--- NOTE | 2024-08-20 06:11 | NUR.NOTE ---
PTs family states that the Medication is started to workNursing Note:
[2024-08-20 06:21] VITALS: BP 146/70; PULSE 78; RESP 18; O2SAT 97
--- NOTE | 2024-08-20 07:19 | W.EDPROG ---
Date of service: 08/20/24 Time of Service: 08:47 Medical Decision Making Patient now alert and oriented and requesting discharge. She is clinically sober currently and has no SI or HI. She left prior to me being able to write discharge paperwork I did verbally tell her to follow-up with her PCP and return precautions were verbally given to her. Quality:SDOH Health Related Social Needs: No Data to Display Discharge Plan Disposition Patient Disposition: Home Condition: Good Discharge Details Clinical Impression: Unknown illicit drug use Primary Care Provider: Valencia Adhikari ED Provider: Harsha Quintero Home Meds and New Rx's Prescriptions: No Action Mirena 21 mcg/24hr (up to 8 yrs) 52 mg intrauterine device 1 device intrauterine ONCE Rx Instructions: as a single dose levothyroxine [Synthroid] 200 MCG tablet 225 mcg PO QAM ibuprofen [IBU] 800 mg tablet 800 mg PO Q8H PRNQty: 30 1RF Discharge Instructions Additional Instructions: At this time your symptoms have resolved from the initial exposure to the unknown agent in the joint. Please avoid utilizing drugs or substances from unverified sources. If you notice any worsening of your symptoms, or any new symptoms such as vomiting, diarrhea, fever, chills, shortness of breath, chest pain, numbness, weakness, or fainting , please return immediately to the emergency department for reevaluation. Please follow up with your primary care provider as soon as possible for reassessment and reevaluation. As always, it was a pleasure participating in your medical care today. Referrals: Valencia Adhikari [Primary Care Provider] -
[2024-08-20 09:15] LABS: *AMPHETAMINES SCREEN URINE Negative (Negative); *BARBITURATES SCREEN URINE Negative (Negative); *BENZODIAZEPINES SCREEN URINE Negative (Negative); Cannabinoids THC Positive (Negative); Cocaine Screen,Urine Positive (Negative); METHADONE URINE SCREEN Negative (Negative); OPIATES URINE SCREEN Negative (Negative)
[2024-08-20 09:17] LABS: Tricyclic Antidepressants Negative (Negative)
== END 2024-08-20 09:02 | disposition home or self-care (01) ==
PROVIDERS: Student in an Organized Health Care Education/Training Program; Emergency Provider Emergency Medicine; PCP Nurse Practitioner Family
DX: F12.90 Cannabis use, unspecified, uncomplicated (principal); F15.90 Other stimulant use, unspecified, uncomplicated
CPT/HCPCS: 99284 ×2; 96374; 96375; 00123; 80307; J1200; J3360

== ENCOUNTER 2025-01-20 17:22 | Outpatient (REF) | payer MEDICAID, SELFPAY ==
[2025-01-20 21:43] LABS: TSH 0.05 uIU/mL (0.36-3.74)
== END 2025-01-20 17:23 | disposition home or self-care (01) ==
LOC: NCHCN 17:22
PROVIDERS: PCP Nurse Practitioner Family; Visit Provider Family Medicine
DX: E03.9 Hypothyroidism, unspecified (principal)
CPT/HCPCS: 84443

== ENCOUNTER 2025-03-16 11:48 | Outpatient (REF) | payer MEDICAID, SELFPAY ==
[2025-03-16 16:08] LABS: TSH (W/Ref FT4) 0.30 uIU/mL (0.55-4.78)
== END 2025-03-16 11:49 | disposition home or self-care (01) ==
LOC: NCHCN 11:48
PROVIDERS: PCP Nurse Practitioner Family; Visit Provider Family Medicine
DX: E03.9 Hypothyroidism, unspecified (principal)
CPT/HCPCS: 84439; 84443